=== PATIENT | male | born 1975 | race Caucasian/White ===

== ENCOUNTER 2016-05-26 22:38 | Inpatient (IN) | payer MEDICARE, OTHER ==
[2016-05-26] MEDS ORDERED: NITROGLYCERIN SL TABS 0.4 MG TAB SUBLINGUAL STA ×3 (23:11)
[2016-05-26] MEDS ORDERED: ASPIRIN 81 MG CHEW PO STA (23:11)
--- NOTE | 2016-05-26 23:13 | ED ---
General Adult HPI - General Chief complaint: Chest Pain Stated complaint: Chest Pain Time Seen by Provider: 05/26/16 22:53 Source: patient, RN notes reviewed Mode of arrival: ambulatory Limitations: no limitations - History of Present Illness Initial comments: Patient is a pleasant 40-year-old male presenting to the emergency department complaining of chest discomfort. Onset was around an hour prior to arrival. Prior to that patient did have some indigestion earlier in the day. Discomfort at this time is described as heaviness. Discomfort is currently 7/10. Patient does have some mild shortness of breath. No nausea. Patient was sweaty earlier. Patient has had similar symptoms previously associated with cardiac disease. - Related Data Home Medications Medication Instructions Recorded Confirmed Nitroglycerin Sl Tabs [Nitrostat] 0.4 mg SL Q5M PRN 10/13/13 05/26/16 Sertraline HCl [Zoloft] 200 mg PO QAM 10/13/13 05/26/16 Linagliptin [Tradjenta] 5 mg PO HS 10/13/14 05/26/16 Spironolactone [Aldactone] 25 mg PO DAILY 05/16/15 05/26/16 Furosemide [Lasix] 40 mg PO DAILY 05/21/15 05/26/16 metFORMIN HCL 1,000 mg PO AC-BID 07/03/15 05/26/16 Omeprazole [PriLOSEC] 40 mg PO AC-SUPPER 08/13/15 05/26/16 Ranolazine [Ranexa] 1,000 mg PO Q12H 10/03/15 05/26/16 Insuln Asp Prt/Insulin Aspart 25 unit SQ BID 11/08/15 05/26/16 [NovoLOG MIX 70-30 VIAL] Metoclopramide [Reglan] 10 mg PO ACHS 12/25/15 05/26/16 Baclofen [Lioresal] 10 mg PO TID PRN 01/13/16 05/26/16 ARIPiprazole 10 mg PO HS 03/10/16 05/26/16 Dulaglutide [Trulicity] 1.5 mg SQ FR 03/10/16 05/26/16 Gabapentin 300 mg PO TID 03/10/16 05/26/16 Glimepiride 4 mg PO AC-BID 03/10/16 05/26/16 Isosorbide Mononitrate ER [Imdur] 60 mg PO DAILY 03/10/16 05/26/16 Ranitidine HCl 300 mg PO DAILY 05/05/16 05/26/16 Rosuvastatin Calcium 40 mg PO DAILY 05/05/16 05/26/16 Previous Rx's Medication Instructions Recorded Prasugrel [Effient] 10 mg PO DAILY #14 tab 06/01/14 Aspirin EC [Ecotrin] 325 mg PO DAILY tablet. 12/08/14 Lisinopril [Zestril] 5 mg PO DAILY #1 tablet 03/10/16 Allergies Allergy/AdvReac Type Severity Reaction Status Date / Time Penicillins Allergy Severe Rash/Hives Verified 05/26/16 23:00 meclizine Allergy Unknown Unknown Verified 05/26/16 23:00 erythromycin base AdvReac Severe Swelling Verified 05/26/16 23:00 [Erythromycin Base] shellfish derived AdvReac Severe Swelling Verified 05/26/16 23:00 cephalexin monohydrate AdvReac Mild Nausea & Verified 05/26/16 23:00 [From Keflex] Vomiting codeine AdvReac Unknown Swelling Verified 05/26/16 23:00 naproxen AdvReac Unknown Unknown Verified 05/26/16 23:00 atorvastatin calcium AdvReac MUSCLE PAIN Verified 05/26/16 23:00 [From Lipitor] Iodinated Contrast Media - AdvReac Unknown Verified 05/26/16 23:00 Oral and bird feces AdvReac Swelling Uncoded 05/26/16 22:44 sea food AdvReac Swelling Uncoded 05/26/16 22:44 Review of Systems ROS Statement: Those systems with pertinent positive or pertinent negative responses have been documented in the HPI. ROS Other: All systems not noted in ROS Statement are negative. Constitutional: Denies: fever Eyes: Denies: eye pain ENT: Denies: ear pain Respiratory: Reports: dyspnea. Denies: cough Cardiovascular: Reports: chest pain Endocrine: Denies: fatigue Gastrointestinal: Denies: abdominal pain, nausea Genitourinary: Denies: dysuria Musculoskeletal: Denies: back pain Skin: Denies: rash Neurological: Denies: weakness Past Medical History Past Medical History: Coronary Artery Disease (CAD), Chest Pain / Angina, Heart Failure, CVA/TIA, Diabetes Mellitus, GERD/Reflux, Hyperlipidemia, Hypertension, Myocardial Infarction ([place]), Osteoarthritis (OA), Pneumonia, Sleep Apnea/CPAP/ BIPAP Additional Past Medical History / Comment(s): Coronary artery disease with multiple vessel disease, ischemic cardiomyopathy, diabetic neuropathy, hypertension hypertensive cardiovascular disease, chronic gastritis, chronic back pain, depression with multiple suicide attempts with insulin in the past.GASTROPARESIS, PSORIASES. Last Myocardial Infarction Date:: 12/2014 History of Any Multi-Drug Resistant Organisms: None Reported Past Surgical History: AICD, Appendectomy, Cholecystectomy, Heart Catheterization With Stent, Hernia Repair Additional Past Surgical History / Comment(s): Right orchiectomy, right sided hand surgery in 2001 secondary to an injury.Left heart catheterization and angioplasty with a stent placement of the LAD in 2009 and September 2010. Left heart catheterization February 2013, and August - RCA occlusion treated so farwith aggressive medical management, TEEAdditional Medical Hx: Gastroparesis, 10-23-14 HAD HEART CATH WITH PTBA TO DISTAL CIRC.11/05/14 NSTEMI. Past Anesthesia/Blood Transfusion Reactions: No Reported Reaction Additional Past Anesthesia/Blood Transfusion Reaction / Comment(s): . Date of Last Stent Placement:: 05/2015 Type of Cardiac Device: AICD Device Placement Date:: 09/19/15 Past Psychological History: Anxiety, Depression, PTSD Additional Psychological History / Comment(s): Several suicide attempts with use of insulin.PT STATED HAS PTSD- IN 2000- HIS 3 MONTH OLD SON IN HIS ARMS (CHILD WAS BORN 2 MONTHS PREMATURE), PT ON DISABILTY MULTIFACTORIAL PER PT. Smoking Status: Never smoker Past Alcohol Use History: None Reported Additional Past Alcohol Use History / Comment(s): . He does not drink alcohol or use street drugs. He is currently living with his .PT DENIES HAVING EVER BEEN A SMOKER Past Drug Use History: None Reported Additional Drug Use History / Comment(s): NONE IN 15 YEARS has smoked marijuana - Past Family History Mother Family Medical History: Coronary Artery Disease (CAD), Myocardial Infarction ([place] ) Additional Family Medical History / Comment(s): 7 [place] and faulty heart valve Father History Unknown: Yes Additional Family Medical History / Comment(s): Does not know who father is Brother(s) Family Medical History: Congestive Heart Failure (CHF), Myocardial Infarction ( [place]) Additional Family Medical History / Comment(s): Parkinsons Patient has Family Medical History: No Reported History Additional Family Medical History / Comment(s): There is a strong family history for heart disease, hypertension, and diabetes. General Exam Limitations: no limitations General appearance: alert, in no apparent distress Head exam: Present: atraumatic Eye exam: Present: normal appearance ENT exam: Present: normal oropharynx Neck exam: Present: normal inspection Respiratory exam: Present: normal lung sounds bilaterally. Absent: chest wall tenderness Cardiovascular Exam: Present: regular rate, normal rhythm Expanded Peripheral pulses: 2+: Radial (R), Radial (L), Posterior Tibialis (R), Posterior Tibialis (L) GI/Abdominal exam: Present: soft. Absent: tenderness Extremities exam: Present: normal inspection. Absent: pedal edema, calf tenderness Neurological exam: Present: alert Psychiatric exam: Present: normal affect, normal mood Skin exam: Absent: rash Course Vital Signs 05/26/16 05/27/16 05/27/16 22:43 00:11 00:15 Temperature 97.2 F L Pulse Rate 105 H 98 102 H Respiratory 18 18 18 Rate Blood Pressure 142/90 141/94 154/82 O2 Sat by Pulse 100 98 96 Oximetry 05/27/16 00:20 Temperature Pulse Rate 104 H Respiratory 18 Rate Blood Pressure 124/79 O2 Sat by Pulse 96 Oximetry EKG Findings - EKG Comments: EKG Findings:: Atrial sensed ventricular paced rhythm at 107. CO 170. QRS 84. QT 3:30. QTC 440. Right axis. Poor R-wave progression. No acute ST change. Medical Decision Making - Medical Decision Making Patient reexamined and resting comfortably in bed. Patient updated on results and plan. Case discussed with practitioner Lindsey, who will admit for Dr. Gallagher, covering for hospital call. Heparin will be started. Cardiology consultation. Admission orders written. - Lab Data Result diagrams: 05/26/16 23:19 05/26/16 23:19 Lab Results 05/26/16 05/26/16 05/26/16 Range/Units 23:19 23:19 23:19 WBC 5.1 (3.8-10.6) k/uL RBC 4.35 (4.30-5.90) m/uL Hgb 11.9 L (13.0-17.5) gm/dL Hct 35.6 L (39.0-53.0) % MCV 81.9 (80.0-100.0) fL MCH 27.4 (25.0-35.0) pg MCHC 33.4 (31.0-37.0) g/dL RDW 14.1 (11.5-15.5) % Plt Count 268 (150-450) k/uL Neutrophils % 53 % Lymphocytes % 35 % Monocytes % 8 % Eosinophils % 2 % Basophils % 1 % Neutrophils # 2.7 (1.3-7.7) k/uL Lymphocytes # 1.8 (1.0-4.8) k/uL Monocytes # 0.4 (0-1.0) k/uL Eosinophils # 0.1 (0-0.7) k/uL Basophils # 0.0 (0-0.2) k/uL PT (9.0-12.0) sec INR (<1.1) APTT (22.0-30.0) sec Sodium 135 L (137-145) mmol/L Potassium 4.5 (3.5-5.1) mmol/L Chloride 100 (98-107) mmol/L Carbon Dioxide 23 (22-30) mmol/L Anion Gap 12 mmol/L BUN 17 (9-20) mg/dL Creatinine 0.90 (0.66-1.25) mg/dL Est GFR (MDRD) Af Amer >60 (>60 ml/min/1.73 sqM) Est GFR (MDRD) Non-Af >60 (>60 ml/min/1.73 sqM) Glucose 304 H (74-99) mg/dL POC Glucose (mg/dL) (75-99) mg/dL POC Glu Manager Strategy & Account ID Calcium 9.4 (8.4-10.2) mg/dL Magnesium 1.5 L (1.6-2.3) mg/dL Total Bilirubin 0.5 (0.2-1.3) mg/dL AST 20 (17-59) U/L ALT 30 (21-72) U/L Alkaline Phosphatase 105 (38-126) U/L Total Creatine Kinase 113 (55-170) U/L CK-MB (CK-2) 2.5 H* (0.0-2.4) ng/mL CK-MB (CK-2) Rel Index 2.2 Troponin I 0.111 H* (0.000-0.034) ng/mL Total Protein 5.6 L (6.3-8.2) g/dL Albumin 3.4 L (3.5-5.0) g/dL 05/26/16 05/27/16 Range/Units 23:19 00:17 WBC (3.8-10.6) k/uL RBC (4.30-5.90) m/uL Hgb (13.0-17.5) gm/dL Hct (39.0-53.0) % MCV (80.0-100.0) fL MCH (25.0-35.0) pg MCHC (31.0-37.0) g/dL RDW (11.5-15.5) % Plt Count (150-450) k/uL Neutrophils % % Lymphocytes % % Monocytes % % Eosinophils % % Basophils % % Neutrophils # (1.3-7.7) k/uL Lymphocytes # (1.0-4.8) k/uL Monocytes # (0-1.0) k/uL Eosinophils # (0-0.7) k/uL Basophils # (0-0.2) k/uL PT 10.5 (9.0-12.0) sec INR 1.0 (<1.1) APTT 20.4 L (22.0-30.0) sec Sodium (137-145) mmol/L Potassium (3.5-5.1) mmol/L Chloride (98-107) mmol/L Carbon Dioxide (22-30) mmol/L Anion Gap mmol/L BUN (9-20) mg/dL Creatinine (0.66-1.25) mg/dL Est GFR (MDRD) Af Amer (>60 ml/min/1.73 sqM) Est GFR (MDRD) Non-Af (>60 ml/min/1.73 sqM) Glucose (74-99) mg/dL POC Glucose (mg/dL) 297 H (75-99) mg/dL POC Glu Manager Strategy & Account ID Kaushik, Faye Calcium (8.4-10.2) mg/dL Magnesium (1.6-2.3) mg/dL Total Bilirubin (0.2-1.3) mg/dL AST (17-59) U/L ALT (21-72) U/L Alkaline Phosphatase (38-126) U/L Total Creatine Kinase (55-170) U/L CK-MB (CK-2) (0.0-2.4) ng/mL CK-MB (CK-2) Rel Index Troponin I (0.000-0.034) ng/mL Total Protein (6.3-8.2) g/dL Albumin (3.5-5.0) g/dL - Radiology Data Radiology results: image reviewed (Checks x-ray shows no acute process.) Critical Care Time Critical Care Time: Yes Total Critical Care Time: 31 Disposition Clinical Impression: NSTEMI (non-ST elevated myocardial infarction) Disposition: ADMITTED IP TO THIS HOSP
[2016-05-26 23:31] LABS: Basophils % (A) 1 %; CH 26.8; CHCM 32.8; Eosinophils # (A) 0.1 k/uL (0-0.7); Eosinophils % (A) 2 %; HCT 35.6 % (39.0-53.0); HDW 3.16; HGB 11.9 gm/dL (13.0-17.5); Luc % (Auto) 2; Lymphocytes # (A) 1.8 k/uL (1.0-4.8); Lymphocytes % (A) 35 %; MCH 27.4 pg (25.0-35.0); MCHC 33.4 g/dL (31.0-37.0); MCV 81.9 fL (80.0-100.0); Mean Platelet Volume 6.9; Monocytes # (A) 0.4 k/uL (0-1.0); Monocytes % (A) 8 %; Neutrophils # (A) 2.7 k/uL (1.3-7.7); Neutrophils % (A) 53 %; RBC 4.35 m/uL (4.30-5.90); RDW 14.1 % (11.5-15.5); WBC 5.1 k/uL (3.8-10.6); WBC (Perox) 5.89
--- NOTE | 2016-05-26 23:34 | XR ---
EXAMINATION TYPE: XR chest 2V DATE OF EXAM: 05/26/2016 11:27 PM COMPARISON: May 05, 2016 HISTORY: Chest pain history of multiple MIs, bypass and stents. TECHNIQUE: Frontal and lateral views of the chest are obtained. FINDINGS: There is no focal air space opacity, pleural effusion, or pneumothorax seen. The cardiac silhouette size is within normal limits. Left-sided pacemaker is noted. The osseous structures are i ntact. IMPRESSION: No acute cardiopulmonary process. No significant interval change.
[2016-05-26 23:41] LABS: ALT 30 U/L (21-72); AST 20 U/L (17-59); Alkaline Phosphatase 105 U/L (38-126); Anion Gap 12 mmol/L; Blood Urea Nitrogen 17 mg/dL (9-20); Calcium 9.4 mg/dL (8.4-10.2); Carbon Dioxide 23 mmol/L (22-30); Chloride 100 mmol/L (98-107); Glucose 304 mg/dL (74-99); Magnesium 1.5 mg/dL (1.6-2.3); Non-African American GFR(MDRD) >60 (>60 ml/min/1.73 sqM); Potassium 4.5 mmol/L (3.5-5.1); Sodium 135 mmol/L (137-145); Total Bilirubin 0.5 mg/dL (0.2-1.3); Total Protein 5.6 g/dL (6.3-8.2)
[2016-05-27 00:02] LABS: Prothrombin Time 10.5 sec (9.0-12.0)
[2016-05-27] MEDS ORDERED: MAGNESIUM OXIDE 400 MG TAB PO STA (00:10)
[2016-05-27] MEDS ORDERED: INSULIN REGULAR 100 UNIT/ML VIAL SQ ONE (00:10)
[2016-05-27 00:16] LABS: Partial Thromboplastin Time 20.4 sec (22.0-30.0)
[2016-05-27 00:21] LABS: Glucose,Whole Blood 297 mg/dL (75-99)
[2016-05-27 00:32] LABS: Creatine Kinase MB 2.5 ng/mL (0.0-2.4); Troponin I 0.111 ng/mL (0.000-0.034)
[2016-05-27] MEDS ORDERED: BACLOFEN 10 MG TAB PO PRN (00:46)
[2016-05-27] MEDS ORDERED: HEPARIN SODIUM,PORCINE 5,000 UNIT/ML 1 ML VIAL IV ONE (00:47)
[2016-05-27] MEDS ORDERED: NITROGLYCERIN SL TABS 0.4 MG TAB SUBLINGUAL PRN (00:47)
[2016-05-27] MEDS: HEPARIN SODIUM,PORCINE/D5W PMX 25,000 UNIT in DEXTROSE/WATER 1 500ML.BAG IV SCH (01:11)
[2016-05-27 01:37] LABS: Glucose,Whole Blood 256 mg/dL (75-99)
[2016-05-27 01:59] VITALS: BMI 38.7
[2016-05-27] MEDS: RANOLAZINE 500 MG TAB.ER.12H PO SCH ×2 (02:08→13:35)
[2016-05-27] MEDS ORDERED: NITROGLYCERIN OINT 1 INCH/GM PACKET TOPICAL SCH (06:00)
[2016-05-27 07:26] LABS: Glucose,Whole Blood 286 mg/dL (75-99)
[2016-05-27 07:36] LABS: Mean Platelet Volume 6.7
[2016-05-27 07:57] LABS: Creatine Kinase MB 2.7 ng/mL (0.0-2.4); Troponin I 0.154 ng/mL (0.000-0.034)
[2016-05-27] MEDS: GLIMEPIRIDE 4 MG TAB PO SCH ×2 (08:38→18:31)
[2016-05-27] MEDS: metFORMIN 500 MG TAB PO SCH ×2 (08:38→18:31)
[2016-05-27] MEDS: FUROSEMIDE 40 MG TAB PO SCH (08:39)
[2016-05-27] MEDS: FAMOTIDINE 20 MG TAB PO SCH (08:39)
[2016-05-27] MEDS: GABAPENTIN 100 MG CAP PO SCH ×3 (08:40→21:50)
[2016-05-27] MEDS: PRASUGREL 10 MG TAB PO SCH (08:40)
[2016-05-27] MEDS: LISINOPRIL 5 MG TAB PO SCH (08:40)
[2016-05-27] MEDS: SERTRALINE 100 MG TAB PO SCH (08:41)
[2016-05-27] MEDS: SPIRONOLACTONE 25 MG TAB PO SCH (08:41)
[2016-05-27] MEDS: HEPARIN SODIUM,PORCINE 5,000 UNIT/ML 1 ML VIAL IV PRN ×2 (08:45→18:30)
[2016-05-27] MEDS: INSULN ASP PRT/INSULIN ASPART 100 UNIT/ML 10 ML VIAL SQ SCH ×2 (08:46→21:49)
[2016-05-27] MEDS ORDERED: ROSUVASTATIN CALCIUM 40 MG PO SCH (09:00)
[2016-05-27] MEDS ORDERED: ISOSORBIDE MONONITRATE ER 60 MG TAB.ER.24H PO SCH (09:00)
[2016-05-27 11:43] LABS: Glucose,Whole Blood 214 mg/dL (75-99)
--- NOTE | 2016-05-27 11:55 | P.CRDCN ---
History of Present Illness Consult date: 05/27/16 History of present illness: This is a 40-year-old gentleman with history of coronary artery disease which is diffuse and with history of multiple stent placement, currently being followed by a meter technician at [facility]. His last admission here was in December 2015 for chest pain. Apparently about a month ago, patient had a cardiac catheterization at [facility] and patient was advised to maximal medical therapy. Around 9:00 yesterday morning patient started having chest pain which was excruciating and patient came to the emergency room for further evaluation. His EKG showed sinus rhythm with evidence of biventricular permanent pacemaker rhythm. His cardiac enzymes showed mildly elevated troponins 2. He seemed to be sleeping comfortably at the time of my examination the he does complain of mild discomfort in the chest. Unfortunately , there is not much we can do as far as revascularization is consent. I'm going to increase the dose of the Imdur to 90 mg and continue current medical therapy. If patient remains stable he could be discharged home within next 48 hours and have follow-up with his own meter technician. Review of Systems As per the old chart Past Medical History Past Medical History: Coronary Artery Disease (CAD), Chest Pain / Angina, Heart Failure, CVA/TIA, Diabetes Mellitus, GERD/Reflux, Hyperlipidemia, Hypertension, Myocardial Infarction ([place]), Osteoarthritis (OA), Pneumonia, Sleep Apnea/CPAP/ BIPAP Additional Past Medical History / Comment(s): Coronary artery disease with multiple vessel disease, ischemic cardiomyopathy, diabetic neuropathy, hypertension hypertensive cardiovascular disease, chronic gastritis, chronic back pain, depression with multiple suicide attempts with insulin in the past.GASTROPARESIS, PSORIASES. Last Myocardial Infarction Date:: 12/2014 History of Any Multi-Drug Resistant Organisms: None Reported Past Surgical History: AICD, Appendectomy, Cholecystectomy, Heart Catheterization With Stent, Hernia Repair Additional Past Surgical History / Comment(s): Right orchiectomy, right sided hand surgery in 2001 secondary to an injury.Left heart catheterization and angioplasty with a stent placement of the LAD in 2009 and September 2010. Left heart catheterization February 2013, and August - RCA occlusion treated so farwith aggressive medical management, TEEAdditional Medical Hx: Gastroparesis, 10-23-14 HAD HEART CATH WITH PTBA TO DISTAL CIRC.11/05/14 NSTEMI. Past Anesthesia/Blood Transfusion Reactions: No Reported Reaction Additional Past Anesthesia/Blood Transfusion Reaction / Comment(s): . Date of Last Stent Placement:: 05/2015 Type of Cardiac Device: AICD Device Placement Date:: 09/19/15 Past Psychological History: Anxiety, Depression, PTSD Additional Psychological History / Comment(s): Several suicide attempts with use of insulin.PT STATED HAS PTSD- IN 2000- HIS 3 MONTH OLD SON IN HIS ARMS (CHILD WAS BORN 2 MONTHS PREMATURE), PT ON DISABILTY MULTIFACTORIAL PER PT. Smoking Status: Never smoker Past Alcohol Use History: Rare Additional Past Alcohol Use History / Comment(s): . He does not drink alcohol or use street drugs. He is currently living with his .PT DENIES HAVING EVER BEEN A SMOKER Past Drug Use History: None Reported Additional Drug Use History / Comment(s): NONE IN 15 YEARS has smoked marijuana - Past Family History Mother Family Medical History: Coronary Artery Disease (CAD), Myocardial Infarction ([place] ) Additional Family Medical History / Comment(s): 7 [place] and faulty heart valve Father History Unknown: Yes Additional Family Medical History / Comment(s): Does not know who father is Brother(s) Family Medical History: Congestive Heart Failure (CHF), Myocardial Infarction ( [place]) Additional Family Medical History / Comment(s): Parkinsons Patient has Family Medical History: No Reported History Additional Family Medical History / Comment(s): There is a strong family history for heart disease, hypertension, and diabetes. Medications and Allergies Home Medications Medication Instructions Recorded Confirmed Type Nitroglycerin Sl Tabs [Nitrostat] 0.4 mg SL Q5M PRN 10/13/13 05/26/16 History Sertraline HCl [Zoloft] 200 mg PO QAM 10/13/13 05/26/16 History Linagliptin [Tradjenta] 5 mg PO HS 10/13/14 05/26/16 History Spironolactone [Aldactone] 25 mg PO DAILY 05/16/15 05/26/16 History Furosemide [Lasix] 40 mg PO DAILY 05/21/15 05/26/16 History metFORMIN HCL 1,000 mg PO AC-BID 07/03/15 05/26/16 History Omeprazole [PriLOSEC] 40 mg PO AC-SUPPER 08/13/15 05/26/16 History Ranolazine [Ranexa] 1,000 mg PO Q12H 10/03/15 05/26/16 History Insuln Asp Prt/Insulin Aspart 25 unit SQ BID 11/08/15 05/26/16 History [NovoLOG MIX 70-30 VIAL] Metoclopramide [Reglan] 10 mg PO ACHS 12/25/15 05/26/16 History Baclofen [Lioresal] 10 mg PO TID PRN 01/13/16 05/26/16 History ARIPiprazole 10 mg PO HS 03/10/16 05/26/16 History Dulaglutide [Trulicity] 1.5 mg SQ FR 03/10/16 05/26/16 History Gabapentin 300 mg PO TID 03/10/16 05/26/16 History Glimepiride 4 mg PO AC-BID 03/10/16 05/26/16 History Isosorbide Mononitrate ER [Imdur] 60 mg PO DAILY 03/10/16 05/26/16 History Ranitidine HCl 300 mg PO DAILY 05/05/16 05/26/16 History Rosuvastatin Calcium 40 mg PO DAILY 05/05/16 05/26/16 History Allergies Allergy/AdvReac Type Severity Reaction Status Date / Time Penicillins Allergy Severe Rash/Hives Verified 05/26/16 23:00 meclizine Allergy Unknown Unknown Verified 05/26/16 23:00 erythromycin base AdvReac Severe Swelling Verified 05/26/16 23:00 [Erythromycin Base] shellfish derived AdvReac Severe Swelling Verified 05/26/16 23:00 cephalexin monohydrate AdvReac Mild Nausea & Verified 05/26/16 23:00 [From Keflex] Vomiting codeine AdvReac Unknown Swelling Verified 05/26/16 23:00 naproxen AdvReac Unknown Unknown Verified 05/26/16 23:00 atorvastatin calcium AdvReac MUSCLE PAIN Verified 05/26/16 23:00 [From Lipitor] Iodinated Contrast Media - AdvReac Unknown Verified 05/26/16 23:00 Oral and bird feces AdvReac Swelling Uncoded 05/26/16 22:44 sea food AdvReac Swelling Uncoded 05/26/16 22:44 Physical Exam Vitals: Vital Signs Temp Pulse Pulse Resp BP BP Pulse Ox 05/27/16 08:00 97.7 F 99 20 140/87 95 05/27/16 04:00 97.6 F 97 16 121/77 95 05/27/16 00:57 100 18 133/82 97 05/27/16 00:55 97.8 F Intake and Output 05/26/16 05/27/16 05/27/16 22:59 06:59 14:59 Intake Total 100 148.333 Balance 100 148.333 Intake: IV 100 0.9 100 Intake, IV Titration 148.333 Amount Heparin Sodium,Porcine/ 148.333 D5w Pmx 25,000 unit In Dextrose/Water 1 500ml. bag @ 9 UNITS/KG/HR 20.08 mls/hr IV .Q24H JAKE Rx#: [id number] Other: # Voids 0 Weight 118.9 kg GENERAL EXAM: Patient is alert and oriented and doesn't appear to be in any acute distress HEENT: Normocephalic. Normal reaction of pupils, equal size, normal range of extraocular motion. No erythema or exudates in the throat. NECK: No masses, no nuchal rigidity. CHEST: No chest wall deformity. LUNGS: Equal air entry with no crackles or wheeze. HEART: S1 and S2 normal with no audible mumurs or gallops. Regular rhythm, femorals equal on both sides.. ABDOMEN: No hepatosplenomegaly, normal bowel sounds, no guarding or rigidity. SKIN: No rashes CENTRAL NERVOUS SYSTEM: No focal deficits. EXTREMITIES: No cyanosis, clubbing or edema. Results 05/27/16 06:28 05/26/16 23:19 Cardiac Enzymes 05/27/16 Range/Units 06:28 CK-MB (CK-2) 2.7 H* (0.0-2.4) ng/mL Troponin I 0.154 H* (0.000-0.034) ng/mL Coagulation 05/27/16 Range/Units 06:28 APTT 23.7 (22.0-30.0) sec CBC 05/27/16 Range/Units 06:28 Plt Count 236 (150-450) k/uL Current Medications Generic Name Dose Route Start Last Admin Trade Name Freq PRN Reason Stop Dose Admin Aripiprazole 10 mg 05/27/16 21:00 Abilify PO HS JAKE Aspirin 325 mg 05/28/16 09:00 Aspirin PO DAILY JAKE Baclofen 10 mg 05/27/16 00:46 Lioresal PO TID PRN Pain Famotidine 20 mg 05/27/16 09:00 05/27/16 08:39 Pepcid PO 20 mg DAILY [facility] Administration Furosemide 40 mg 05/27/16 09:00 05/27/16 08:39 Lasix PO 40 mg DAILY JAKE Administration Gabapentin 300 mg 05/27/16 09:00 05/27/16 08:40 Neurontin PO 300 mg TID JAKE Administration Glimepiride 4 mg 05/27/16 07:30 05/27/16 08:38 Amaryl PO 4 mg AC-BID JAKE Administration Heparin Sodium (Porcine) 0 unit 05/27/16 00:47 05/27/16 08:45 Heparin IV 4,000 unit Q6HR PRN Administration Low PTT Protocol Heparin Sodium/Dextrose 25,000 500 mls @ 20.08 mls/hr 05/27/16 01:00 08:36 unit/ IV Solution IV 12 units/kg/hr .Q24H JAKE 26.78 mls/hr Protocol Titration 9 UNITS/KG/HR Insulin Aspart 25 unit 05/27/16 09:00 05/27/16 08:46 Novolog Mix 70-30 Vial SQ 25 unit BID [facility] Administration Insulin Human Lispro 0 unit 05/27/16 12:30 Humalog SQ ACHS [facility] Protocol Isosorbide Mononitrate 90 mg 05/27/16 12:00 Imdur PO DAILY [facility] Linagliptin 5 mg 05/27/16 21:00 Tradjenta PO HS [facility] Lisinopril 5 mg 05/27/16 09:00 05/27/16 08:40 Zestril PO 5 mg DAILY [facility] Administration Metformin HCl 1,000 mg 05/27/16 07:30 05/27/16 08:38 Glucophage PO 1,000 mg AC-BID [facility] Administration Nitroglycerin 0.4 mg 05/27/16 00:47 05/27/16 02:03 Nitrostat SUBLINGUAL 0.4 mg Q5M PRN Administration Chest Pain Non-Formulary Medication 1.5 mg 05/30/16 00:46 Dulaglutide [Trulicity] SQ FR JAKE Non-Formulary Medication 40 mg 05/27/16 09:00 Rosuvastatin Calcium [Rosuvastatin Calcium] PO DAILY [facility] Pantoprazole Sodium 40 mg 01/03/17 17:30 Protonix PO AC-SUPPER JAKE Prasugrel 10 mg 05/27/16 09:00 05/27/16 08:40 Effient PO 10 mg DAILY JAKE Administration Ranolazine 1,000 mg 05/27/16 01:00 05/27/16 02:08 Ranexa PO 1,000 mg Q12H JAKE Administration Sertraline HCl 200 mg 05/27/16 09:00 05/27/16 08:41 Zoloft PO 200 mg QAM JAKE Administration Spironolactone 25 mg 05/27/16 09:00 05/27/16 08:41 Aldactone PO 25 mg DAILY JAKE Administration Intake and Output 05/26/16 05/27/16 05/27/16 22:59 06:59 14:59 Intake Total 100 148.333 Balance 100 148.333 Intake: IV 100 0.9 100 Intake, IV Titration 148.333 Amount Heparin Sodium,Porcine/ 148.333 D5w Pmx 25,000 unit In Dextrose/Water 1 500ml. bag @ 9 UNITS/KG/HR 20.08 mls/hr IV .Q24H JAKE Rx#: [id number] Other: # Voids 0 Weight 118.9 kg 05/27/16 06:28 EKG Interpretations (text) Sinus rhythm with evidence of biventricular pacemaker rhythm Assessment and Plan (1) Acute coronary syndrome Status: Acute (2) Chest pain Status: Acute (3) Congestive heart failure Status: Acute (4) Diabetes Status: Acute (5) HTN (hypertension) Status: Acute (6) TIA (transient ischemic attack) Status: Acute Plan: This patient unfortunately has recurrent admissions with chest pains. His troponin values are always borderline high. He seemed to be comfortable at the time of my examination. He had a recent cardiac catheter patient about a month ago. I'm going to increase his nitrates and continue with medical therapy. If he becomes stable he could be discharged home, to have follow-up with his own meter technician
[2016-05-27 11:58] LABS: Creatine Kinase MB 2.2 ng/mL (0.0-2.4)
[2016-05-27 12:05] LABS: Troponin I 0.14 ng/mL (0.000-0.034)
[2016-05-27 12:49] LABS: Hemoglobin A1C 9.3 % (4.2-6.1)
[2016-05-27] MEDS: ISOSORBIDE MONONITRATE ER 30 MG TAB.ER.24H PO SCH (13:33)
[2016-05-27] MEDS: INSULIN LISPRO (humaLOG) 300 UNIT/3 ML VIAL SQ SCH ×3 (13:35→21:49)
[2016-05-27 17:07] LABS: Glucose,Whole Blood 95 mg/dL (75-99)
[2016-05-27] MEDS: PANTOPRAZOLE 40 MG TABLET PO SCH (18:31)
[2016-05-27] MEDS ORDERED: LINAGLIPTIN 5 MG TABLET PO SCH (21:00)
[2016-05-27] MEDS ORDERED: ARIPiprazole 10 MG TAB PO SCH (21:00)
[2016-05-27 21:37] LABS: Glucose,Whole Blood 182 mg/dL (75-99)
[2016-05-28] MEDS: HEPARIN SODIUM,PORCINE/D5W PMX 25,000 UNIT in DEXTROSE/WATER 1 500ML.BAG IV SCH ×2 (00:23→10:31)
[2016-05-28] MEDS: HEPARIN SODIUM,PORCINE 5,000 UNIT/ML 1 ML VIAL IV PRN (00:28)
[2016-05-28] MEDS: RANOLAZINE 500 MG TAB.ER.12H PO SCH ×2 (00:28→12:10)
[2016-05-28 06:09] LABS: CH 26.8; CHCM 32.7; HCT 34.9 % (39.0-53.0); HDW 3.02; HGB 11.4 gm/dL (13.0-17.5); MCHC 32.7 g/dL (31.0-37.0); MCV 82.4 fL (80.0-100.0); Mean Platelet Volume 7.5; RBC 4.24 m/uL (4.30-5.90); RDW 14.4 % (11.5-15.5); WBC 6.8 k/uL (3.8-10.6)
[2016-05-28 07:09] LABS: Anion Gap 13 mmol/L; Blood Urea Nitrogen 19 mg/dL (9-20); Carbon Dioxide 25 mmol/L (22-30); Chloride 103 mmol/L (98-107); Cholesterol 140 mg/dL (<200); Glucose 89 mg/dL (74-99); HDL Cholesterol 51 mg/dL (40-60); Magnesium 1.5 mg/dL (1.6-2.3); Non-African American GFR(MDRD) >60 (>60 ml/min/1.73 sqM); Potassium 4.2 mmol/L (3.5-5.1); Sodium 141 mmol/L (137-145); Triglycerides 161 mg/dL (<150)
[2016-05-28 07:59] LABS: Glucose,Whole Blood 107 mg/dL (75-99)
[2016-05-28] MEDS ORDERED: ASPIRIN 325 MG TAB PO SCH (09:00)
[2016-05-28] MEDS: SERTRALINE 100 MG TAB PO SCH (09:14)
[2016-05-28] MEDS: PRASUGREL 10 MG TAB PO SCH (09:14)
[2016-05-28] MEDS: LISINOPRIL 5 MG TAB PO SCH (09:14)
[2016-05-28] MEDS: GLIMEPIRIDE 4 MG TAB PO SCH ×2 (09:15→16:58)
[2016-05-28] MEDS: metFORMIN 500 MG TAB PO SCH ×2 (09:16→16:58)
[2016-05-28] MEDS: INSULIN LISPRO (humaLOG) 300 UNIT/3 ML VIAL SQ SCH ×3 (09:16→16:58)
[2016-05-28] MEDS: INSULN ASP PRT/INSULIN ASPART 100 UNIT/ML 10 ML VIAL SQ SCH (09:17)
[2016-05-28] MEDS: FAMOTIDINE 20 MG TAB PO SCH (09:17)
[2016-05-28] MEDS: GABAPENTIN 100 MG CAP PO SCH ×2 (09:17→16:57)
[2016-05-28] MEDS: FUROSEMIDE 40 MG TAB PO SCH (09:17)
[2016-05-28] MEDS: ISOSORBIDE MONONITRATE ER 30 MG TAB.ER.24H PO SCH (09:18)
[2016-05-28] MEDS: SPIRONOLACTONE 25 MG TAB PO SCH (09:50)
[2016-05-28] MEDS: MAGNESIUM SULFATE-D5W PMX 1 GM in DEXTROSE/WATER 1 100ML.BAG IVPB SCH ×2 (10:31→12:09)
--- NOTE | 2016-05-28 11:06 | HP ---
DATE OF ADMISSION: CHIEF COMPLAINT: Chest pain. HISTORY OF PRESENT ILLNESS: Mr. Dunham is a 40-year-old male with known history of diffuse coronary artery disease with multiple stent placement, previous history of chest pain/angina, diabetes, type II, obstructive sleep apnea, hypertension, hyperlipidemia and ischemic cardiomyopathy status post AICD placement, chronic back pain and also multiple suicide attempts, came to the hospital with complaints of chest pain that started yesterday morning, midsternal, associated some dizziness and lightheadedness. No radiation. Associated with nausea, no vomiting. Patient had elevated troponin level and was admitted to the hospital in MICU for cardiology evaluation. Apparently patient was previously admitted ( ) with similar complaints and also had a cardiac catheterization about a month back at [facility]. Patient advised maximum medical therapy at that time. Otherwise patient is chest pain free now. Cardiology recommended no further work-up. No fever. No chills. No recent illnesses. No sick contacts at home. No recent travel. REVIEW OF SYSTEMS: CONSTITUTIONAL: No fever. No chills and no weakness or malaise. RESPIRATORY: No cough or sputum production. CARDIOVASCULAR: No chest pain or shortness of breath. ABDOMEN: No nausea, vomiting, or abdominal pain. GENITOURINARY: Negative. ENDOCRINE: Negative. PSYCHIATRY: Anxious. SKIN: Negative. MUSCULOSKELETAL: Negative. All other fourteen-point review of systems negative except as above. Current past medical history includes: Coronary artery disease, chest pain/angina, CHF, CVA/TIA, diabetes mellitus, GERD, hyperlipidemia, hypertension, history of SD, osteoarthritis, pneumonia, sleep apnea, diabetic neuropathy, ischemic cardiomyopathy, multiple suicide attempts. PAST SURGICAL HISTORY: AICD placement, appendectomy, cholecystectomy, cardiac catheterization with stent placement, hernia repair, right orchiectomy, right side hand surgery in 2001 secondary to injury. PSYCHOSOCIAL HISTORY: Anxiety, depression, PTSD, several suicidal attempts with use of insulin. SOCIAL HISTORY: Patient never a smoker. Does not drink or use street drugs. Currently living with his . Remote history of marijuana use. FAMILY HISTORY: Mother had coronary artery disease and SD. Father, he does not know. Brother has congestive heart failure, SD, and Parkinson's disease. Home medication include: Nitroglycerin sublingual, Zoloft, ( ), spironolactone, Lasix, metformin, omeprazole, Ranexa, NovoLog, metoclopramide, baclofen, ( ), gabapentin, glimepiride, Imdur, ranitidine, ( ). ALLERGIES: PENICILLIN, MECLIZINE, ERYTHROMYCIN BASE, SHELLFISH, ( ), KEFLEX, CODEINE, NAPROSYN, ATORVASTATIN, IODINATED CONTRAST MEDIA, BIRD FECES, SEAFOOD. PHYSICAL EXAMINATION: A 40-year-old man lying in the bed, awake, alert, oriented x3, appears to be in no apparent distress. VITALS: Blood pressure is 110/72, pulse is 93, respirations 16, temperature afebrile, pulse ox 93% on room air. HEENT: Atraumatic, normocephalic. Neck is supple. No JVD. CVS: S1, S2 heard. No murmurs, no gallop, no rub. LUNGS: Bilateral air entry is present. No wheezing. No crackles. Nonlabored breathing. ABDOMEN: Soft, nontender. Bowel sounds present. QUALITY CONTROL MICROBIOLOGIST: Awake, alert and oriented x3. No focal neurologic deficit. Cranial nerves grossly intact. EXTREMITIES: No edema. Pulses palpable bilaterally. No clubbing or cyanosis. PSYCHIATRIC: Cooperative. LABORATORY DATA: WBC 5.1, hemoglobin 11.9, platelets 268, INR 1.0. Sodium 135, potassium 4.5, chloride 100, bicarb is 23, BUN 17, creatinine 0.9, magnesium 1.5, troponin 0.111, 0.154. EKG, paced rhythm. Chest x-ray, no acute cardiopulmonary process. LABORATORY DATA: Reviewed. IMPRESSION: 1. Acute non-ST elevated myocardial infarction with elevated troponin levels. 2. History of significant coronary artery disease and diffuse coronary artery disease with history of multiple stents. 3. Ischemic cardiomyopathy status post AICD placement. 4. Hypertension. 5. Hyperlipidemia. 6. Anxiety, depression posttraumatic stress disorder. 7. History of multiple suicide attempts in the past. 8. History of cerebrovascular accident/transient ischemic attack, no residual weakness. 9. Diabetes mellitus, insulin-dependent. 10. Diabetic peripheral neuropathy. 11. Diabetic gastroparesis. 12. Psoriasis. Discussion and plan: A 40-year-old male with a known history of significant coronary artery disease and multiple suicide attempts admitted to the hospital with chest pain and elevated troponin level and NSTEMI. Patient will be continued on heparin at this time and home medications. Cardiology is following the patient and recommend maximum medical therapy and increase Imdur dose to 90 mg daily. Otherwise, patient is chest pain free. Will continue to monitor the patient in ICU.
[2016-05-28 11:27] LABS: Glucose,Whole Blood 219 mg/dL (75-99)
[2016-05-28 12:06] VITALS: RESP 15
[2016-05-28 15:46] LABS: Glucose,Whole Blood 55 mg/dL (75-99)
[2016-05-28 15:54] LABS: Glucose,Whole Blood 72 mg/dL (75-99)
[2016-05-28 16:50] VITALS: BP 120/75; PULSE 90; TEMP 98.2
[2016-05-28 16:53] LABS: Glucose,Whole Blood 112 mg/dL (75-99)
[2016-05-28] MEDS: PANTOPRAZOLE 40 MG TABLET PO SCH (16:57)
--- NOTE | 2016-05-28 21:53 | P.PN ---
Subjective This 40-year-old gentleman with history of ischemic heart diseasewith a several stent placements in the past, comes to the hospital with complaints of chest pain. Patient is currently being followed by a baseball scout at [facility]. Patient has diffuse disease and small vessel disease and not a good candidate for any intervention. Patient came with chest pain however his troponin values are mildly elevated but not insistent with acute coronary syndrome/type I myocardial infarction. Patient has remained stable since admission here. He wants to go home. Patient is being discharged in stable condition and he has an appointment to see his baseball scout. Objective - Vital Signs Vital signs: Vital Signs Temp 98.2 F 05/28/16 16:00 Pulse 90 05/28/16 16:00 Resp 15 05/28/16 16:00 BP 120/75 05/28/16 16:00 Pulse Ox 97 05/28/16 08:00 Intake & Output 05/28/16 05/28/16 05/29/16 06:59 18:59 06:59 Intake Total 856.991 567.056 Balance 856.991 567.056 Weight 118.9 kg Intake: IV 320 160 0.9 320 160 Intake, IV Titration 86.991 407.056 Amount Heparin Sodium,Porcine/ 86.991 407.056 D5w Pmx 25,000 unit In Dextrose/Water 1 500ml. bag @ 9 UNITS/KG/HR 20.08 mls/hr IV .Q24H JAKE Rx#: [id number] Oral 450 Other: # Voids 2 2 - Exam GENERAL EXAM: Patient is alert and oriented and doesn't appear to be in any acute distress HEENT: Normocephalic. Normal reaction of pupils, equal size, normal range of extraocular motion. No erythema or exudates in the throat. NECK: No masses, no nuchal rigidity. CHEST: No chest wall deformity. LUNGS: Equal air entry with no crackles or wheeze. HEART: S1 and S2 normal with no audible mumurs or gallops. Regular rhythm, femorals equal on both sides.. ABDOMEN: No hepatosplenomegaly, normal bowel sounds, no guarding or rigidity. SKIN: No rashes CENTRAL NERVOUS SYSTEM: No focal deficits. EXTREMITIES: No cyanosis, clubbing or edema. - Labs CBC & Chem 7: 05/28/16 05:59 05/28/16 05:59 Labs: Abnormal Lab Results - Last 24 Hours (Table) 05/27/16 05/28/16 05/28/16 Range/Units 23:23 05:59 05:59 RBC 4.24 L (4.30-5.90) m/uL Hgb 11.4 L (13.0-17.5) gm/dL Hct 34.9 L (39.0-53.0) % APTT 35.4 H (22.0-30.0) sec POC Glucose (mg/dL) (75-99) mg/dL Magnesium 1.5 L (1.6-2.3) mg/dL Troponin I (0.000-0.034) ng/mL Triglycerides 161 H (<150) mg/dL 05/28/16 05/28/16 05/28/16 Range/Units 05:59 05:59 07:57 RBC (4.30-5.90) m/uL Hgb (13.0-17.5) gm/dL Hct (39.0-53.0) % APTT 54.4 H (22.0-30.0) sec POC Glucose (mg/dL) 107 H (75-99) mg/dL Magnesium (1.6-2.3) mg/dL Troponin I 0.102 H* (0.000-0.034) ng/mL Triglycerides (<150) mg/dL 05/28/16 05/28/16 05/28/16 Range/Units 11:26 15:44 15:53 RBC (4.30-5.90) m/uL Hgb (13.0-17.5) gm/dL Hct (39.0-53.0) % APTT (22.0-30.0) sec POC Glucose (mg/dL) 219 H 55 L 72 L (75-99) mg/dL Magnesium (1.6-2.3) mg/dL Troponin I (0.000-0.034) ng/mL Triglycerides (<150) mg/dL 05/28/16 Range/Units 16:51 RBC (4.30-5.90) m/uL Hgb (13.0-17.5) gm/dL Hct (39.0-53.0) % APTT (22.0-30.0) sec POC Glucose (mg/dL) 112 H (75-99) mg/dL Magnesium (1.6-2.3) mg/dL Troponin I (0.000-0.034) ng/mL Triglycerides (<150) mg/dL Assessment and Plan (1) Acute coronary syndrome Status: Acute (2) Chest pain Status: Acute (3) Congestive heart failure Status: Acute (4) Diabetes Status: Acute (5) HTN (hypertension) Status: Acute (6) TIA (transient ischemic attack) Status: Acute Plan: patient remained clinically stable since admission. He wants to go home. Being discharged home in a stable condition. Patient already has established follow-up with his primary baseball scout
--- NOTE | 2016-05-29 13:38 | DS ---
DATE OF ADMISSION: 05/27/2016 DATE OF DISCHARGE: 05/28/2016 FINAL DIAGNOSES: 1. Chest pain with possible acute non-ST elevation myocardial infarction with elevated troponin 2. Coronary artery disease, diffuse coronary artery disease with history of multiple stents. 3. History of ischemic cardiomyopathy status post automatic implantable cardioverter-defibrillator placement. 4. Hypertension. 5. Hyperlipidemia. 6. Anxiety, depression, posttraumatic stress disorder, not otherwise specified. 7. History of multiple suicide attempts in the past. 8. History of cerebrovascular accident, transient ischemic attack. 9. No residual weakness. 10. Diabetes insulin-dependent, type II. 11. History of peripheral neuropathy. 12. History of diabetic gastroparesis. 13. History of psoriasis. Discharge disposition: The patient will be discharged in a stable condition with guarded prognosis. Cardiology cleared the patient for discharge. HISTORY OF PRESENT ILLNESS: This is a 40-year-old gentleman with a past medical history of multiple medical problems was admitted with chest pain and troponins were found to be elevated. The patient was treated medically. Cardiology saw the patient and please see business technology teacher consultation for further details. The patient's progress was limited but however, the patient is stable at this time. Patient is keen on going home. On exam, vital signs stable. CARDIOVASCULAR: S1, S2. ABDOMEN: Soft. Nervous system: No focal deficits. DISCHARGE ADVICE AND MEDICATIONS: 1. Diet is cardiac. 2. Activity limited until follow up. 3. Follow-up with Dr. Agustin 2 to 3 days. 4. Follow up with cardiology as advised. 5. Aripiprazole 10 mg q.h.s. 6. Ecotrin 320 mg p.o. daily. 7. Lioresal 10 mg 8.dulaglutide 1.5 mg Thursday. 9. Lasix 40 mg p.o. daily. 10. Gabapentin 300 mg p.o. t.i.d. 11. glimepride 4 mg a.c. b.i.d. 12. Insulin 25 subcu b.i.d. 13. Imdur 90 mg p.o. daily. 14. Tradjenta 5 mg p.o. q.h.s. 15. Zestril 5 mg p.o. daily. 16. Reglan 10 mg a.c. and at bedtime. 17. Nitrostat 0.4 sublingual p.r.n. 18. Prilosec 40 mg a.c. supper. 19. Effient 10 mg p.o. daily. 20. Ranexa 1000 mg p.o. b.i.d. 21. Crestor 40 mg p.o. daily. 22. Zoloft 20 mg p.o. daily. 23. Aldactone 25 mg. 24. Metformin 1000 mg b.i.d. Once again, the patient will be discharged in stable condition with guarded prognosis. MTDD
[2016-05-30] MEDS ORDERED: NON-FORMULARY DRUG (Dulaglutide [Trulicity] 1.5 MG) SQ SCH (00:46)
== END 2016-05-28 17:51 | disposition home or self-care (01) | DRG 282 ==
LOC: EC 22:38 → 6ICU 05-27 00:42
PROVIDERS: ADMIT Internal Medicine; ATTEND Internal Medicine
DX: I21.4 Non-ST elevation (NSTEMI) myocardial infarction (principal); I11.0 Hypertensive heart disease with heart failure; E11.42 Type 2 diabetes mellitus with diabetic polyneuropathy; I50.9 Heart failure, unspecified; E11.43 Type 2 diabetes mellitus with diabetic autonomic (poly)neuropathy; E78.5 Hyperlipidemia, unspecified; F32.9 Major depressive disorder, single episode, unspecified; F41.9 Anxiety disorder, unspecified; F43.10 Post-traumatic stress disorder, unspecified; G47.33 Obstructive sleep apnea (adult) (pediatric); I25.10 Atherosclerotic heart disease of native coronary artery without angina pectoris; I25.5 Ischemic cardiomyopathy; I73.9 Peripheral vascular disease, unspecified; K21.9 Gastro-esophageal reflux disease without esophagitis; K31.84 Gastroparesis; L40.9 Psoriasis, unspecified; M19.90 Unspecified osteoarthritis, unspecified site; Z79.4 Long term (current) use of insulin; Z82.49 Family history of ischemic heart disease and other diseases of the circulatory system; I25.2 Old myocardial infarction; Z86.73 Personal history of transient ischemic attack (TIA), and cerebral infarction without residual deficits; Z95.5 Presence of coronary angioplasty implant and graft; Z95.810 Presence of automatic (implantable) cardiac defibrillator; Z79.84 Long term (current) use of oral hypoglycemic drugs; Z79.899 Other long term (current) drug therapy
CPT/HCPCS: 36415; 71020; 80048; 80053; 80061; 82550; 82553; 83036; 83735; 84484; 85025; 85027; 85049; 85610; 85730; 93005; 96376; 99291

== ENCOUNTER 2016-05-31 22:30 | Inpatient (IN) | payer MEDICARE, OTHER ==
[2016-05-31] MEDS ORDERED: NITROGLYCERIN SL TABS 0.4 MG TAB SUBLINGUAL STA (22:32)
[2016-05-31] MEDS ORDERED: NITROGLYCERIN OINT 1 INCH/GM PACKET TOPICAL STA (22:32)
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
[2016-05-31 22:39] LABS: Glucose,Whole Blood 306 mg/dL (75-99)
[2016-05-31 22:52] LABS: Basophils % (A) 1 %; CH 26.8; CHCM 32.4; Eosinophils # (A) 0.1 k/uL (0-0.7); Eosinophils % (A) 2 %; HCT 34.8 % (39.0-53.0); HDW 3.02; HGB 11.2 gm/dL (13.0-17.5); Hypochromasia Slight; Luc # (Auto) 0.12; Luc % (Auto) 2; Lymphocytes # (A) 1.4 k/uL (1.0-4.8); Lymphocytes % (A) 23 %; MCH 26.7 pg (25.0-35.0); MCHC 32.2 g/dL (31.0-37.0); Mean Platelet Volume 7.4; Monocytes # (A) 0.3 k/uL (0-1.0); Monocytes % (A) 5 %; Neutrophils # (A) 3.9 k/uL (1.3-7.7); Neutrophils % (A) 67 %; RBC 4.19 m/uL (4.30-5.90); RDW 14.6 % (11.5-15.5); WBC 5.8 k/uL (3.8-10.6); WBC (Perox) 6.06
[2016-05-31 23:01] LABS: ALT 28 U/L (21-72); AST 18 U/L (17-59); Alkaline Phosphatase 110 U/L (38-126); Anion Gap 7 mmol/L; Blood Urea Nitrogen 24 mg/dL (9-20); Calcium 8.6 mg/dL (8.4-10.2); Carbon Dioxide 26 mmol/L (22-30); Chloride 100 mmol/L (98-107); Glucose 296 mg/dL (74-99); Magnesium 1.5 mg/dL (1.6-2.3); Non-African American GFR(MDRD) 56 (>60 ml/min/1.73 sqM); Potassium 5.5 mmol/L (3.5-5.1); Sodium 133 mmol/L (137-145); Total Bilirubin 0.4 mg/dL (0.2-1.3); Total Protein 5.7 g/dL (6.3-8.2)
--- NOTE | 2016-05-31 23:02 | XR ---
EXAMINATION TYPE: XR chest 2V DATE OF EXAM: 05/31/2016 10:53 PM COMPARISON: 05/26/2016 HISTORY: Chest pain, history of ID one week ago history of pacemaker CAD CVA CHF stents hypertension. TECHNIQUE: Frontal and lateral views of the chest are obtained. FINDINGS: There is suggestion of mild CHF changes in the chest. Left-sided pacemaker is noted. There is no pneumonia, pleural effusion, or pneumothorax seen. The cardiac silhouette size is within normal limits. The osseous structures are intact. IMPRESSION: 1. Suggestion of mild CHF changes. 2. No focal pneumonia.
[2016-05-31 23:10] LABS: Prothrombin Time 10.5 sec (9.0-12.0)
[2016-05-31] MEDS ORDERED: INSULIN LISPRO (humaLOG) 300 UNIT/3 ML VIAL SQ ONE (23:15)
[2016-05-31 23:17] LABS: Partial Thromboplastin Time 21.5 sec (22.0-30.0)
[2016-05-31 23:26] LABS: Creatine Kinase MB 3.1 ng/mL (0.0-2.4); Troponin I 0.264 ng/mL (0.000-0.034)
[2016-05-31] MEDS ORDERED: HEPARIN SODIUM,PORCINE 5,000 UNIT/ML 1 ML VIAL IV ONE (23:28)
[2016-05-31] MEDS ORDERED: NITROGLYCERIN SL TABS 0.4 MG TAB SUBLINGUAL PRN (23:35)
[2016-05-31] MEDS ORDERED: SODIUM CHLORIDE 0.9% 1,000 ML IV STA (23:37)
[2016-05-31] MEDS: HEPARIN SODIUM,PORCINE/D5W PMX 25,000 UNIT in DEXTROSE/WATER 1 500ML.BAG IV SCH (23:49)
[2016-06-01] MEDS: NITROGLYCERIN OINT 1 INCH/GM PACKET TOPICAL SCH ×5 (01:52→23:05)
[2016-06-01 01:59] LABS: Glucose,Whole Blood 101 mg/dL (75-99)
[2016-06-01] MEDS ORDERED: BACLOFEN 10 MG TAB PO PRN (04:06)
[2016-06-01] MEDS: MORPHINE SULFATE 2 MG/ML SYRINGE IVP PRN ×4 (04:51→23:10)
[2016-06-01] MEDS: RANOLAZINE 500 MG TAB.ER.12H PO SCH ×3 (04:52→17:53)
[2016-06-01 05:37] LABS: Glucose,Whole Blood 104 mg/dL (75-99)
[2016-06-01] MEDS: INSULIN LISPRO (humaLOG) 300 UNIT/3 ML VIAL SQ SCH ×4 (06:39→20:55)
[2016-06-01] MEDS: METOCLOPRAMIDE 10 MG TAB PO SCH ×4 (06:44→20:57)
[2016-06-01 07:01] LABS: Cholesterol 123 mg/dL (<200); HDL Cholesterol 50 mg/dL (40-60); Triglycerides 170 mg/dL (<150)
[2016-06-01 07:22] LABS: Creatine Kinase MB 4.9 ng/mL (0.0-2.4); Troponin I 0.586 ng/mL (0.000-0.034)
[2016-06-01] MEDS ORDERED: Magnesium Replacement Protocol 1 EACH MISC MISCELLANE PRN (07:29)
[2016-06-01] MEDS ORDERED: HEPARIN SODIUM,PORCINE 5,000 UNIT/ML 1 ML VIAL IV STA (07:47)
[2016-06-01] MEDS: MAGNESIUM SULFATE-D5W PMX 1 GM in DEXTROSE/WATER 1 100ML.BAG IVPB SCH ×2 (08:00→09:08)
[2016-06-01 08:11] LABS: Basophils % (A) 0 %; CH 26.6; CHCM 31.7; Eosinophils # (A) 0.2 k/uL (0-0.7); Eosinophils % (A) 3 %; HCT 33.9 % (39.0-53.0); HDW 3.05; HGB 11.1 gm/dL (13.0-17.5); Hypochromasia Slight; Luc # (Auto) 0.14; Luc % (Auto) 3; Lymphocytes # (A) 1.9 k/uL (1.0-4.8); Lymphocytes % (A) 35 %; MCH 27.6 pg (25.0-35.0); MCHC 32.7 g/dL (31.0-37.0); MCV 84.2 fL (80.0-100.0); Mean Platelet Volume 7.3; Monocytes # (A) 0.3 k/uL (0-1.0); Monocytes % (A) 6 %; Neutrophils % (A) 53 %; RBC 4.03 m/uL (4.30-5.90); RDW 14.6 % (11.5-15.5); WBC 5.6 k/uL (3.8-10.6); WBC (Perox) 5.93
[2016-06-01 08:12] LABS: Anion Gap 12 mmol/L; Blood Urea Nitrogen 20 mg/dL (9-20); Calcium 8.7 mg/dL (8.4-10.2); Carbon Dioxide 21 mmol/L (22-30); Chloride 106 mmol/L (98-107); Glucose 105 mg/dL (74-99); Non-African American GFR(MDRD) >60 (>60 ml/min/1.73 sqM); Sodium 139 mmol/L (137-145)
[2016-06-01 08:18] LABS: Potassium 4.6 mmol/L (3.5-5.1)
[2016-06-01] MEDS ORDERED: LISINOPRIL 5 MG TAB PO SCH (09:00)
[2016-06-01] MEDS ORDERED: ROSUVASTATIN CALCIUM 40 MG PO SCH (09:00)
[2016-06-01 11:21] LABS: Hemoglobin A1C 9.1 % (4.2-6.1)
[2016-06-01 11:38] LABS: Creatine Kinase MB 4.6 ng/mL (0.0-2.4); Troponin I 0.631 ng/mL (0.000-0.034)
--- NOTE | 2016-06-01 12:11 | P.CRDCN ---
History of Present Illness Consult date: 06/01/16 Chief complaint: Chest pain History of present illness: This is a pleasant 4-year-old gentleman with a known extensive coronary artery disease and multiple stenting who follows with a record label intern out of the town, severe ischemic cardiomyopathy, status post AICD, diabetes, hypertension, dyslipidemia presented back to the hospital complaining of chest discomfort. He was in the hospital here about a week ago with chest discomfort where his cardiac enzymes at that time were not consistent with acute coronary event and he was discharged home. He was doing well till yesterday when he was sitting at a friend's house and started experiencing chest discomfort as a sharp kind of discomfort with some radiation to the left arm without any associated symptoms. Ambulance was called and the patient was given nitroglycerin with mild improvement in the chest discomfort. The EKG showed atrial sensed ventricular paced rhythm. The cardiac enzymes came in to be slightly abnormal. The patient was started on heparin IV which I am going to continue for additional 24 hours. I am going to add beta ravinder to the current medical regimen. Beside that I would continue the current medical treatment. If the chest discomfort improves by tomorrow I will consider discharging the patient home and he can follow-up with his record label intern out of the town at [facility]. Past Medical History Past Medical History: Coronary Artery Disease (CAD), Chest Pain / Angina, Heart Failure, CVA/TIA, Diabetes Mellitus, GERD/Reflux, Hyperlipidemia, Hypertension, Myocardial Infarction (RI), Osteoarthritis (OA), Pneumonia, Sleep Apnea/CPAP/ BIPAP Additional Past Medical History / Comment(s): Coronary artery disease with multiple vessel disease, ischemic cardiomyopathy, diabetic neuropathy, hypertension hypertensive cardiovascular disease, chronic gastritis, chronic back pain, depression with multiple suicide attempts with insulin in the past.GASTROPARESIS, PSORIASES. Last Myocardial Infarction Date:: 12/2014 History of Any Multi-Drug Resistant Organisms: None Reported Past Surgical History: AICD, Appendectomy, Cholecystectomy, Heart Catheterization With Stent, Hernia Repair Additional Past Surgical History / Comment(s): Right orchiectomy, right sided hand surgery in 2001 secondary to an injury.Left heart catheterization and angioplasty with a stent placement of the LAD in 2009 and September 2010. Left heart catheterization February 2013, and August - RCA occlusion treated so farwith aggressive medical management, TEEAdditional Medical Hx: Gastroparesis, 10-23-14 HAD HEART CATH WITH PTBA TO DISTAL CIRC Past Anesthesia/Blood Transfusion Reactions: No Reported Reaction Additional Past Anesthesia/Blood Transfusion Reaction / Comment(s): . Date of Last Stent Placement:: 05/2015 Type of Cardiac Device: AICD Device Placement Date:: 09/19/15 Past Psychological History: Anxiety, Depression, PTSD Additional Psychological History / Comment(s): Several suicide attempts with use of insulin.PT STATED HAS PTSD- IN 2000- HIS 3 MONTH OLD SON IN HIS ARMS (CHILD WAS BORN 2 MONTHS PREMATURE), PT ON DISABILTY MULTIFACTORIAL PER PT. Smoking Status: Never smoker Past Alcohol Use History: Rare Additional Past Alcohol Use History / Comment(s): . He does not drink alcohol or use street drugs. He is currently living with his .PT DENIES HAVING EVER BEEN A SMOKER Past Drug Use History: None Reported Additional Drug Use History / Comment(s): NONE IN 15 YEARS has smoked marijuana - Past Family History Mother Family Medical History: Coronary Artery Disease (CAD), Myocardial Infarction (RI ) Additional Family Medical History / Comment(s): 7 RI and faulty heart valve Father History Unknown: Yes Additional Family Medical History / Comment(s): Does not know who father is Brother(s) Family Medical History: Congestive Heart Failure (CHF), Myocardial Infarction ( RI) Additional Family Medical History / Comment(s): Parkinsons Patient has Family Medical History: No Reported History Additional Family Medical History / Comment(s): There is a strong family history for heart disease, hypertension, and diabetes. Medications and Allergies Home Medications Medication Instructions Recorded Confirmed Type Nitroglycerin Sl Tabs [Nitrostat] 0.4 mg SL Q5M PRN 10/13/13 06/01/16 History Sertraline HCl [Zoloft] 200 mg PO QAM 10/13/13 06/01/16 History Linagliptin [Tradjenta] 5 mg PO HS 10/13/14 06/01/16 History Spironolactone [Aldactone] 25 mg PO DAILY 05/16/15 06/01/16 History Furosemide [Lasix] 40 mg PO DAILY 05/21/15 06/01/16 History metFORMIN HCL 1,000 mg PO AC-BID 07/03/15 06/01/16 History Omeprazole [PriLOSEC] 40 mg PO AC-SUPPER 08/13/15 06/01/16 History Ranolazine [Ranexa] 1,000 mg PO Q12H 10/03/15 06/01/16 History Metoclopramide [Reglan] 10 mg PO ACHS 12/25/15 06/01/16 History Baclofen [Lioresal] 10 mg PO TID PRN 01/13/16 06/01/16 History ARIPiprazole 10 mg PO HS 03/10/16 06/01/16 History Dulaglutide [Trulicity] 1.5 mg SQ FR 03/10/16 06/01/16 History Gabapentin 300 mg PO TID 03/10/16 06/01/16 History Glimepiride 4 mg PO AC-BID 03/10/16 06/01/16 History Rosuvastatin Calcium 40 mg PO DAILY 05/05/16 06/01/16 History Lisinopril [Zestril] 2.5 mg PO DAILY 06/01/16 06/01/16 History Allergies Allergy/AdvReac Type Severity Reaction Status Date / Time Penicillins Allergy Severe Rash/Hives Verified 06/01/16 11:34 meclizine Allergy Unknown Unknown Verified 06/01/16 11:34 erythromycin base AdvReac Severe Swelling Verified 06/01/16 11:34 [Erythromycin Base] shellfish derived AdvReac Severe Swelling Verified 06/01/16 11:34 cephalexin monohydrate AdvReac Mild Nausea & Verified 06/01/16 11:34 [From Keflex] Vomiting codeine AdvReac Unknown Swelling Verified 06/01/16 11:34 naproxen AdvReac Unknown Unknown Verified 06/01/16 11:34 atorvastatin calcium AdvReac MUSCLE PAIN Verified 06/01/16 11:34 [From Lipitor] Iodinated Contrast Media - AdvReac Unknown Verified 06/01/16 11:34 Oral and bird feces AdvReac Swelling Uncoded 05/31/16 22:36 sea food AdvReac Swelling Uncoded 05/31/16 22:36 Physical Exam Vitals: Vital Signs Temp Pulse Pulse Resp BP BP Pulse Ox 06/01/16 11:21 80 16 06/01/16 11:19 80 16 119/71 100 06/01/16 08:00 97 F L 91 16 107/66 93 L 06/01/16 04:00 96 18 119/65 96 06/01/16 02:54 98 06/01/16 02:28 97.5 F L 96 18 126/77 98 06/01/16 01:35 97.5 F L 96 18 126/77 98 06/01/16 01:10 98.0 F 98 20 159/62 98 06/01/16 00:41 64 20 148/67 98 05/31/16 23:42 87 18 135/62 97 Intake and Output 05/31/16 06/01/16 06/01/16 22:59 06:59 14:59 Intake Total 157.667 Balance 157.667 Intake: Intake, IV Titration 157.667 Amount Heparin Sodium,Porcine/ 157.667 D5w Pmx 25,000 unit In Dextrose/Water 1 500ml. bag @ 8.75 UNITS/KG/HR 20 mls/hr IV .Q24H [facility] Rx#: [id number] Other: # Voids 2 Weight 118.8 kg - Constitutional General appearance: no acute distress - Respiratory Respiratory: bilateral: CTA - Cardiovascular Rhythm: regular Heart sounds: normal: S1, S2 Results 06/01/16 05:17 06/01/16 05:17 Cardiac Enzymes 06/01/16 06/01/16 Range/Units 05:17 10:02 CK-MB (CK-2) 4.9 H* 4.6 H* (0.0-2.4) ng/mL Troponin I 0.586 H* 0.631 H* (0.000-0.034) ng/mL Coagulation 06/01/16 Range/Units 05:17 APTT 24.6 (22.0-30.0) sec Lipids 06/01/16 Range/Units 05:17 Triglycerides 170 H (<150) mg/dL Cholesterol 123 (<200) mg/dL HDL Cholesterol 50 (40-60) mg/dL CBC 06/01/16 Range/Units 05:17 WBC 5.6 (3.8-10.6) k/uL RBC 4.03 L (4.30-5.90) m/uL Hgb 11.1 L (13.0-17.5) gm/dL Hct 33.9 L (39.0-53.0) % Plt Count 241 (150-450) k/uL Comprehensive Metabolic Panel 06/01/16 Range/Units 05:17 Sodium 139 (137-145) mmol/L Potassium 4.6 (3.5-5.1) mmol/L Chloride 106 (98-107) mmol/L Carbon Dioxide 21 L (22-30) mmol/L BUN 20 (9-20) mg/dL Creatinine 1.10 (0.66-1.25) mg/dL Glucose 105 H (74-99) mg/dL Calcium 8.7 (8.4-10.2) mg/dL Current Medications Generic Name Dose Route Start Last Admin Trade Name Freq PRN Reason Stop Dose Admin Aripiprazole 10 mg 06/01/16 21:00 Abilify PO HS [facility] Aspirin 325 mg 06/01/16 09:00 Aspirin PO DAILY [facility] Baclofen 10 mg 06/01/16 04:06 Lioresal PO TID PRN Pain Furosemide 40 mg 06/01/16 09:00 Lasix PO DAILY [facility] Gabapentin 300 mg 06/01/16 09:00 Neurontin PO TID [facility] Glimepiride 4 mg 06/01/16 07:30 Amaryl PO AC-BID [facility] Heparin Sodium (Porcine) 0 unit 06/01/16 07:56 Heparin IV PER PROTOCOL PRN PER PROTOCOL Protocol Heparin Sodium/Dextrose 25,000 500 mls @ 20 mls/hr 05/31/16 23:30 06/01/16 07 :42 unit/ IV Solution IV 11.75 units/kg/hr .Q24H [facility] 26.86 mls/hr Protocol Titration 8.75 UNITS/KG/HR Sodium Chloride 1,000 mls @ 20 mls/hr 05/31/16 23:37 05/31/16 23:49 Saline 0.9% IV 06/01/16 23:36 20 mls/hr .Q24H [facility] Administration Insulin Human Lispro 0 unit 06/01/16 07:30 06/01/16 06:39 Humalog SQ Not Given ACHS [facility] Protocol Linagliptin 5 mg 06/01/16 21:00 Tradjenta PO HS [facility] Lisinopril 2.5 mg 06/01/16 09:00 Zestril PO DAILY [facility] Metformin HCl 1,000 mg 06/01/16 07:30 Glucophage PO AC-BID [facility] Metoclopramide HCl 10 mg 06/01/16 07:30 06/01/16 06:44 Reglan PO 10 mg ACHS [facility] Administration Miscellaneous Information 1 each 06/01/16 07:29 Magnesium Per Protocol MISCELLANE DAILY PRN Per Protocol Protocol Morphine Sulfate 2 mg 06/01/16 03:39 06/01/16 04:51 Morphine Sulfate (Inj) IVP 2 mg Q4H PRN Administration Pain/Discomfort Nitroglycerin 0.4 mg 05/31/16 23:35 Nitrostat SUBLINGUAL Q5M PRN Chest Pain Nitroglycerin 1 inch 06/01/16 00:00 06/01/16 06:07 Nitro-Bid Oint TOPICAL 1 inch Q6HR [facility] Administration Non-Formulary Medication 1.5 mg 06/06/16 04:06 Dulaglutide [Trulicity] SQ FR [facility] Non-Formulary Medication 40 mg 06/01/16 09:00 Rosuvastatin Calcium [Rosuvastatin Calcium] PO DAILY [facility] Pantoprazole Sodium 40 mg 06/01/16 17:30 Protonix PO AC-SUPPER [facility] Prasugrel 10 mg 06/01/16 09:00 Effient PO DAILY [facility] Ranolazine 1,000 mg 06/01/16 04:15 06/01/16 04:58 Ranexa PO 1,000 mg Q12H [facility] Administration Sertraline HCl 200 mg 06/01/16 09:00 Zoloft PO QAM [facility] Spironolactone 25 mg 06/01/16 09:00 Aldactone PO DAILY [facility] Intake and Output 05/31/16 06/01/16 06/01/16 22:59 06:59 14:59 Intake Total 157.667 Balance 157.667 Intake: Intake, IV Titration 157.667 Amount Heparin Sodium,Porcine/ 157.667 D5w Pmx 25,000 unit In Dextrose/Water 1 500ml. bag @ 8.75 UNITS/KG/HR 20 mls/hr IV .Q24H [facility] Rx#: [id number] Other: # Voids 2 Weight 118.8 kg 06/01/16 05:17 06/01/16 05:17 Assessment and Plan Plan: Assessment #1 recurrent chest discomfort #2 known severe underlying CAD and prior stenting #3 severe ischemic cardiomyopathy #4 multiple comorbid conditions Plan #1 continue the current medical treatment #2 add atenolol to the current medical treatment #3 follow-up with the patient
[2016-06-01 12:31] LABS: Glucose,Whole Blood 225 mg/dL (75-99)
[2016-06-01] MEDS: metFORMIN 500 MG TAB PO SCH ×2 (13:17→17:53)
[2016-06-01] MEDS: GLIMEPIRIDE 4 MG TAB PO SCH ×2 (13:17→17:53)
[2016-06-01] MEDS: GABAPENTIN 100 MG CAP PO SCH ×3 (13:18→20:54)
[2016-06-01] MEDS: SPIRONOLACTONE 25 MG TAB PO SCH (13:21)
[2016-06-01] MEDS: SERTRALINE 100 MG TAB PO SCH (13:21)
[2016-06-01] MEDS: PRASUGREL 10 MG TAB PO SCH (13:21)
[2016-06-01] MEDS: FUROSEMIDE 40 MG TAB PO SCH (13:21)
[2016-06-01] MEDS: LISINOPRIL 2.5 MG TAB PO SCH (13:24)
[2016-06-01] MEDS: ASPIRIN 325 MG TAB PO SCH (14:04)
[2016-06-01 17:09] LABS: Glucose,Whole Blood 264 mg/dL (75-99)
[2016-06-01] MEDS: PANTOPRAZOLE 40 MG TABLET PO SCH (17:54)
[2016-06-01] MEDS: HEPARIN SODIUM,PORCINE/D5W PMX 25,000 UNIT in DEXTROSE/WATER 1 500ML.BAG IV SCH (18:30)
[2016-06-01 20:16] LABS: Glucose,Whole Blood 216 mg/dL (75-99)
[2016-06-01] MEDS: HEPARIN SODIUM,PORCINE 5,000 UNIT/ML 1 ML VIAL IV PRN (20:52)
[2016-06-01] MEDS ORDERED: ARIPiprazole 10 MG TAB PO SCH (21:00)
[2016-06-01] MEDS ORDERED: LINAGLIPTIN 5 MG TABLET PO SCH (21:00)
[2016-06-02 02:07] VITALS: RESP 18
[2016-06-02] MEDS: HEPARIN SODIUM,PORCINE 5,000 UNIT/ML 1 ML VIAL IV PRN (03:50)
[2016-06-02] MEDS: MORPHINE SULFATE 2 MG/ML SYRINGE IVP PRN ×3 (03:50→16:29)
[2016-06-02] MEDS: RANOLAZINE 500 MG TAB.ER.12H PO SCH ×2 (04:00→15:16)
[2016-06-02] MEDS: NITROGLYCERIN OINT 1 INCH/GM PACKET TOPICAL SCH ×3 (06:34→17:12)
[2016-06-02] MEDS: metFORMIN 500 MG TAB PO SCH ×2 (06:34→17:12)
[2016-06-02] MEDS: GLIMEPIRIDE 4 MG TAB PO SCH ×2 (06:34→17:10)
[2016-06-02] MEDS: INSULIN LISPRO (humaLOG) 300 UNIT/3 ML VIAL SQ SCH ×3 (06:34→17:10)
[2016-06-02 06:35] LABS: Glucose,Whole Blood 186 mg/dL (75-99)
[2016-06-02] MEDS: METOCLOPRAMIDE 10 MG TAB PO SCH ×3 (06:35→17:12)
[2016-06-02] MEDS: FUROSEMIDE 40 MG TAB PO SCH (08:33)
[2016-06-02] MEDS: SPIRONOLACTONE 25 MG TAB PO SCH (08:33)
[2016-06-02] MEDS: ASPIRIN 325 MG TAB PO SCH (08:33)
[2016-06-02] MEDS: GABAPENTIN 100 MG CAP PO SCH ×2 (08:33→15:15)
[2016-06-02] MEDS: SERTRALINE 100 MG TAB PO SCH (08:34)
[2016-06-02] MEDS: PRASUGREL 10 MG TAB PO SCH (08:34)
[2016-06-02] MEDS: LISINOPRIL 2.5 MG TAB PO SCH (08:34)
[2016-06-02] MEDS ORDERED: ATENOLOL 12.5 MG TAB PO SCH (09:00)
[2016-06-02 12:03] LABS: Glucose,Whole Blood 210 mg/dL (75-99)
--- NOTE | 2016-06-02 13:25 | DS ---
DATE OF ADMISSION: 05/31/2016 DATE OF DISCHARGE: 06/02/2016 FINAL DIAGNOSES: 1. Chest pain, possible acute non-ST elevation myocardial infarction. 2. Troponin elevated up to 0.586. 3. History of coronary artery disease with history of multiple stents. 4. History of cardiomyopathy, status post AICD. 5. Hypertension. 6. Hyperlipidemia. 7. Anxiety, depression and posttraumatic disorder, not otherwise specified. 8. History of multiple suicide attempts in the past. 9. History of cerebrovascular accident, transient ischemic attack. 10. Diabetes mellitus type 2. 11. History of peripheral neuropathy. 12. Diabetic gastroparesis . 13. Psoriasis. 14. Mild hypoalbuminemia with mild to moderate protein calorie malnutrition. 15. Mild acute renal failure present on admission. 17. Hyperkalemia and hyponatremia, present on admission due to acute renal failure. 18. Anemia, normocytic, anemia of chronic disease. At this time the patient will be discharged in a stable condition with guarded prognosis. The patient will be transferred to [facility] for cardiology recommendation. HISTORY OF PRESENT ILLNESS: This 40-year-old gentleman with a past medical mentioned above was admitted with chest pain. The patient had two elevated troponins at 0.586. Cardiology saw the patient. Acute coronary syndrome protocol was followed and the torch straightener has talked with [facility] Cardiology and the patient will be transferred to [facility] for further evaluation and treatment management. PHYSICAL EXAMINATINON: CARDIAC: S1, S2. RESPIRATORY: Decreased breath sounds at the bases. ABDOMEN: Soft. NEURO: No focal deficits. Current medications are reviewed and include: 1. Abilify 10 mg q.h.s. 2. Aspirin 325 mg daily. 3. Tenormin 12.5 mg daily. 4. dulaglutide 10 mg daily. 5. Lasix 40 mg daily, 6. Neurontin 300 mg t.i.d. 7. Amaryl 4 mg b.i.d. 8. Heparin drip. 9. Humalog a.c. and at bedtime. 10. Tradjenta 5 mg q.h.s. 11. Zestril 2.5 mg daily. 13. Reglan 10 mg a.c. and bedtime . 14. Morphine sulfate 2 gm p.r.n. 15. Nitroglycerin 0.4 16. Nitro-Bid ointment 1 inch q.6 p.r.n. 17. Dulaglutide 1.5 mg. 18. Protonix 40 mg daily, 19. Ticlid 10 mg daily. 20. Ranexa 1000 mg b.i.d. 21. Zoloft 200 mg. 22. Aldactone 25 mg daily. MTDD
[2016-06-02 14:49] VITALS: BMI 40.4
[2016-06-02 15:20] VITALS: BP 109/60; PULSE 84; TEMP 97.2
--- NOTE | 2016-06-02 15:46 | HP ---
DATE OF ADMISSION: 05/31/2016 CHIEF COMPLAINT: Chest pain. HISTORY OF PRESENT ILLNESS: This 40-year-old gentleman with a past medical history of multiple medical problems, including history of coronary artery disease, history of chest pain, cardiomyopathy, history of any AICD, hypertension, hyperlipidemia, history of CVA, TIA, diabetes mellitus type 2, history of peripheral neuropathy, diabetic gastroparesis, being followed by Dr. Junie New in the outpatient setting was complaining of left-sided chest pain, which is rather sharp and heavy in character both. The pain is persistent. The patient came to [facility] and was admitted to the hospital for further evaluation and treatment. There is no radiation of pain. No history of headache, loss of consciousness or seizures. No active EKG changes noted. Cardiology evaluation in progress. Of note the troponins found to be 0.586 and 0.0631. Acute coronary syndrome protocol has been initiated. PAST MEDICAL HISTORY: 1. History of coronary artery disease. 2. History of chest pain. 3. History of CHF. 4. History of CVA/TIA. 5. Type 2 diabetes mellitus. 6. Gastroesophageal reflux disease. 7. Hypertension. 8. Hyperlipidemia. 9. Myocardial infarction. 11. Sleep apnea. Medications prior to admission include: Home medications are: 1. Metformin 1000 a.c. b.i.d. 2. Aldactone 25 mg daily. 3. Zoloft 20 mg q.a.m. 6. Effient 10 mg p.o. b.i.d. 7. Prilosec 40 mg a.c. supper. 8. Nitrostat 0.4 sublingual p.r.n. 9. Reglan 10 mg a.c. q.h.s. 10. Zestril 2.5 mg daily. 11. Tradjenta 5 mg p.o. q.h.s. 12. Imdur 90 mg p.o. daily. 13. Glimepiride 4 mg a.c. b.i.d. 14. Gabapentin 300 mg p.o. t.i.d. 15. Lasix 40 mg p.o. daily. 17. Lioresal 10 mg p.o. t.i.d. p.r.n. 18. Ecotrin 325 mg p.o. daily. 19. Aripiprazole 10 mg p.o. q.h.s. ALLERGIES ARE PENICILLIN, ERYTHROMYCIN, SHELLFISH, CODEINE, NAPROSYN, ATORVASTATIN, IODINATED CONTRAST DYE, BIRD FECES AND SEAFOOD. FAMILY HISTORY: History of and myocardial infarction, valves. SOCIAL HISTORY: No history of smoking. No history of alcohol intake previously. REVIEW OF SYSTEMS: ENT: No diminished vision. No diminished hearing. CARDIOVASCULAR: As mentioned earlier. RESPIRATORY: As mentioned earlier. GI: No nausea. : No dysuria. Nervous system: No numbness or weakness. ALLERGY/IMMUNOLOGY: No asthma or hayfever. MUSCULOSKELETAL: As mentioned earlier. HEMATOLOGY/ONCOLOGY: No history of anemia. ENDOCRINE: As mentioned earlier. CONSTITUTIONAL: As mentioned earlier. DERMATOLOGY: Negative. RHEUMATOLOGY: Negative. PSYCHIATRY: As mentioned earlier. PHYSICAL EXAMINATION: The patient is alert and oriented times three. Pulse is 80, blood pressure 119/71, respiratory rate 16, temperature 97.2, pulse ox 100% on room air. HEENT: Conjunctivae normal. Oral mucosa moist. NECK: No JVD. No carotid bruit. No lymph node enlargement. CARDIOVASCULAR SYSTEM: S1, S2 muffled. No S3, no S4. RESPIRATORY: Breath sounds diminished at the bases. A few scattered rhonchi and crackles. ABDOMEN: Soft, obese, nontender. No mass palpable. Legs: No edema, no swelling. Nervous system: Higher functions as mentioned. Moves all four limbs. No focal deficits. LYMPHATICS: No lymph nodes palpable in the neck, axillae or groin. SKIN: No ulcer, rash or bleeding. LABS: WBC is 5.6, hemoglobin 11.1. Glucose 105, 225, 264, troponin as noted. ASSESSMENT: 1. Chest pain, possible acute coronary syndrome and acute non-ST elevation myocardial infarction. 2. Troponin 0.631. 3. Diabetes mellitus type 2. 4. History of coronary artery disease, diffuse coronary artery disease with a history of multiple stents. 5. History of ischemic cardiomyopathy with chronic systolic dysfunction with congestive heart failure. 6. Status post AICD. 7. Hypertension. 8. Hyperlipidemia. 9. Anxiety, depression, posttraumatic disorder, not otherwise specified. 10. History of multiple suicide attempts in the past. 11. History of cerebrovascular accident, transient ischemic attack. 12. No residual weakness. 13. Diabetes mellitus type 2. 14. History of peripheral neuropathy. 15. History of diabetic gastroparesis. 16. History of psoriasis. 17. NO CODE, NO CPR, NO VENT. RECOMMENDATIONS AND DISCUSSION: In this 40-year-old gentleman who presented with multiple complex medical issues, we will monitor the patient closely, continue antiplatelet agents, acute coronary syndrome. Cardiology evaluation. Discussed with Dr. Dewey. Dr. Dewey will review the chart and decide further course of action. Dr. 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 In any case, prognosis guarded. Further recommendations to follow. MTDD
--- NOTE | 2016-06-02 16:16 | P.PN ---
Subjective Principal diagnosis: Chest pain This is a pleasant 4-year-old gentleman with a known extensive coronary artery disease and multiple stenting who follows with a real estate manager out of the town, severe ischemic cardiomyopathy, status post AICD, diabetes, hypertension, dyslipidemia presented back to the hospital complaining of chest discomfort. He was in the hospital here about a week ago with chest discomfort where his cardiac enzymes at that time were not consistent with acute coronary event and he was discharged home. On this occasion patient again presents with symptoms of chest discomfort. EKG on admission showed a atrial sensed ventricular paced rhythm with minimal inferior ST depression noted. Troponin 0.26, 0.58, 0.63. Close time of my examination of this morning, patient states he had several episodes of chest pressure and heaviness through the night last night, intermittent, he's requesting a transfer to [facility] where his real estate manager is. We will work on arranging a transfer. Objective - Vital Signs Vital signs: Vital Signs Temp 97.2 F L 06/02/16 15:19 Pulse 84 06/02/16 15:19 Resp 18 06/02/16 15:19 BP 109/60 06/02/16 15:19 Pulse Ox 95 06/02/16 15:19 Intake & Output 06/01/16 06/02/16 06/02/16 18:59 06:59 18:59 Intake Total 088.822 8433.110 576 Output Total 450 Balance 480.553 7996.110 576 Weight 115.4 kg 115.4 kg Intake: IV 160 600 Heparin Sodium,Porcine/ 160 360 D5w Pmx 25,000 unit In Dextrose/Water 1 500ml. bag @ 8.75 UNITS/KG/HR 20 mls/hr IV .Q24H [facility] Rx#: [id number] Sodium Chloride 0.9% 1, 240 000 ml @ 20 mls/hr IV . Q24H [facility] Rx#:[id number] Intake, IV Titration 447.755 301.110 Amount Heparin Sodium,Porcine/ 447.755 301.110 D5w Pmx 25,000 unit In Dextrose/Water 1 500ml. bag @ 8.75 UNITS/KG/HR 20 mls/hr IV .Q24H [facility] Rx#: [id number] Oral 222 720 576 Output: Urine 450 Other: # Voids 1 2 - Exam PHYSICAL EXAMINATION: HEENT: Head is atraumatic, normocephalic. Pupils equal, round. Neck is supple. There is no elevated jugular venous pressure. HEART EXAMINATION: Heart S1, S2 normal. No murmur or gallop heard. CHEST EXAMINATION: Lungs are clear with mild scattered wheezes throughout. ABDOMEN: Soft, nontender. Bowel sounds are heard. No organomegaly noted. EXTREMITIES: 2+ peripheral pulses with trace evidence of peripheral edema and no calf tenderness noted. NEUROLOGIC patient is awake, alert and oriented -3. . - Labs CBC & Chem 7: 06/01/16 05:17 06/01/16 05:17 Labs: Abnormal Lab Results - Last 24 Hours (Table) 06/01/16 06/01/16 06/01/16 Range/Units 17:08 19:04 20:15 APTT 19.2 L (22.0-30.0) sec POC Glucose (mg/dL) 264 H 216 H (75-99) mg/dL 06/02/16 06/02/16 06/02/16 Range/Units 02:41 06:33 09:28 APTT 44.2 H 62.6 H (22.0-30.0) sec POC Glucose (mg/dL) 186 H (75-99) mg/dL 06/02/16 Range/Units 12:01 APTT (22.0-30.0) sec POC Glucose (mg/dL) 210 H (75-99) mg/dL Assessment and Plan (1) Ischemic cardiomyopathy Status: Acute (2) AICD (automatic cardioverter/defibrillator) present Status: Acute (3) CAD (coronary artery disease) Status: Acute (4) HTN (hypertension) Status: Acute (5) Hyperlipemia Status: Acute (6) Diabetes Status: Acute (7) Acute coronary syndrome Status: Acute Plan: From cardiology's perspective, we'll continue the patient on his current medications. We will also speak with his real estate manager, Dr. Peres regarding a possible transfer. Further recommendations will be based patient's progress within the next 24 hours. DNP note has been reviewed, I agree with a documented findings and plan of care. Patient was seen and examined.
[2016-06-02 16:37] LABS: Glucose,Whole Blood 162 mg/dL (75-99)
[2016-06-02] MEDS: PANTOPRAZOLE 40 MG TABLET PO SCH (17:12)
[2016-06-06] MEDS ORDERED: NON-FORMULARY DRUG (Dulaglutide [Trulicity] 1.5 MG) SQ SCH (04:06)
== END 2016-06-02 19:23 | disposition short-term general hospital (02) | DRG 281 ==
LOC: EC 22:30 → 6SEL 23:35
PROVIDERS: ADMIT Hospitalist; ATTEND Hospitalist
DX: I21.4 Non-ST elevation (NSTEMI) myocardial infarction (principal); E44.0 Moderate protein-calorie malnutrition; N17.9 Acute kidney failure, unspecified; I50.22 Chronic systolic (congestive) heart failure; E87.1 Hypo-osmolality and hyponatremia; K31.84 Gastroparesis; E11.42 Type 2 diabetes mellitus with diabetic polyneuropathy; I11.0 Hypertensive heart disease with heart failure; E11.65 Type 2 diabetes mellitus with hyperglycemia; D63.8 Anemia in other chronic diseases classified elsewhere; I25.10 Atherosclerotic heart disease of native coronary artery without angina pectoris; E11.43 Type 2 diabetes mellitus with diabetic autonomic (poly)neuropathy; E78.5 Hyperlipidemia, unspecified; E87.5 Hyperkalemia; F32.9 Major depressive disorder, single episode, unspecified; F41.9 Anxiety disorder, unspecified; F43.10 Post-traumatic stress disorder, unspecified; G47.30 Sleep apnea, unspecified; I25.2 Old myocardial infarction; I25.5 Ischemic cardiomyopathy; K21.9 Gastro-esophageal reflux disease without esophagitis; L40.9 Psoriasis, unspecified; M19.90 Unspecified osteoarthritis, unspecified site; G89.29 Other chronic pain; M54.9 Dorsalgia, unspecified; K29.50 Unspecified chronic gastritis without bleeding; Z68.41 Body mass index [BMI] 40.0-44.9, adult; Z79.82 Long term (current) use of aspirin; Z79.02 Long term (current) use of antithrombotics/antiplatelets; Z79.4 Long term (current) use of insulin; Z79.899 Other long term (current) drug therapy; Z95.810 Presence of automatic (implantable) cardiac defibrillator; Z88.0 Allergy status to penicillin; Z88.8 Allergy status to other drugs, medicaments and biological substances; Z88.1 Allergy status to other antibiotic agents; Z91.041 Radiographic dye allergy status; Z88.5 Allergy status to narcotic agent; Z91.013 Allergy to seafood; Z95.5 Presence of coronary angioplasty implant and graft; Z82.49 Family history of ischemic heart disease and other diseases of the circulatory system
CPT/HCPCS: 36415; 71020; 80048; 80053; 80061; 82550; 82553; 83036; 83735; 84484; 85025; 85610; 85730; 93005; 96365; 96376; 99291

== ENCOUNTER 2016-06-09 20:12 | Observation (INO) | payer MEDICARE, OTHER ==
[2016-06-09] MEDS ORDERED: IV VANCOMYCIN PER PHARMACY 1 EACH MISC MISCELLANE PRN (20:30)
[2016-06-09] MEDS ORDERED: SODIUM CHLORIDE 0.9% 1,000 ML IV ONE (20:30)
[2016-06-09] MEDS ORDERED: RX INFO: IV CONTRAST WAS GIVEN 1 EACH MISC MISCELLANE PRN (20:41)
[2016-06-09] MEDS ORDERED: methylPREDNISolone SOD SUCCI 125 MG/2 ML VIAL IV STA (20:43)
[2016-06-09] MEDS ORDERED: diphenhydrAMINE 50 MG/ML 1 ML VIAL IVP STA (20:43)
[2016-06-09] MEDS ORDERED: FAMOTIDINE 20 MG/2 ML VIAL IV STA (20:47)
[2016-06-09] MEDS ORDERED: MORPHINE SULFATE 10 MG/ML SYRINGE IVP STA (20:48)
--- NOTE | 2016-06-09 20:54 | ED ---
Skin/Abscess/FB HPI - General Chief complaint: Skin/Abscess/Foreign Body Stated complaint: abscess/trouble hearing Time Seen by Provider: 06/09/16 20:17 Source: patient, RN notes reviewed Mode of arrival: ambulatory Limitations: no limitations - History of Present Illness Initial comments: Patient is a 40-year-old male presents to the emergency room for evaluation of left ear pain. Patient states that over the past few days he began developing pain and swelling on the anterior portion of his left ear. Patient states he's now having increased pain inside his ear and has had decreased hearing in his left ear. Patient states he is having 10 out of 10 pain and swelling at the area. Patient states the pain is radiating inside his ear and down the left side of his neck. Patient states he felt very warm last night but denies any known fevers. Patient denies any history of MRSA. - Related Data Home Medications Medication Instructions Recorded Confirmed Nitroglycerin Sl Tabs [Nitrostat] 0.4 mg SL Q5M PRN 10/13/13 06/01/16 Sertraline HCl [Zoloft] 200 mg PO QAM 10/13/13 06/01/16 Linagliptin [Tradjenta] 5 mg PO HS 10/13/14 06/01/16 Spironolactone [Aldactone] 25 mg PO DAILY 05/16/15 06/01/16 Furosemide [Lasix] 40 mg PO DAILY 05/21/15 06/01/16 metFORMIN HCL 1,000 mg PO AC-BID 07/03/15 06/01/16 Omeprazole [PriLOSEC] 40 mg PO AC-SUPPER 08/13/15 06/01/16 Metoclopramide [Reglan] 10 mg PO ACHS 12/25/15 06/01/16 Baclofen [Lioresal] 10 mg PO TID PRN 01/13/16 06/01/16 ARIPiprazole 10 mg PO HS 03/10/16 06/01/16 Dulaglutide [Trulicity] 1.5 mg SQ FR 03/10/16 06/01/16 Glimepiride 4 mg PO AC-BID 03/10/16 06/01/16 Rosuvastatin Calcium 40 mg PO DAILY 05/05/16 06/01/16 Lisinopril [Zestril] 2.5 mg PO DAILY 06/01/16 06/01/16 Acarbose [Precose] 25 mg PO TID 06/09/16 06/09/16 Gabapentin [Neurontin] 300 mg PO TID 06/09/16 06/09/16 Ranolazine [Ranexa] 1,000 mg PO BID 06/09/16 06/09/16 Sulfamethox-Tmp 800-160Mg [Bactrim 1 tab PO Q12HR 06/09/16 06/09/16 DS 800-160 mg] Previous Rx's Medication Instructions Recorded Prasugrel [Effient] 10 mg PO DAILY #14 tab 06/01/14 Aspirin EC [Ecotrin] 325 mg PO DAILY tablet. 12/08/14 Isosorbide Mononitrate ER [Imdur] 90 mg PO DAILY #120 tab.er.24h 05/28/16 Allergies Allergy/AdvReac Type Severity Reaction Status Date / Time Penicillins Allergy Severe Rash/Hives Verified 06/09/16 20:16 meclizine Allergy Unknown Unknown Verified 06/09/16 20:16 erythromycin base AdvReac Severe Swelling Verified 06/09/16 20:16 [Erythromycin Base] shellfish derived AdvReac Severe Swelling Verified 06/09/16 20:16 cephalexin monohydrate AdvReac Mild Nausea & Verified 06/09/16 20:16 [From Keflex] Vomiting codeine AdvReac Unknown Swelling Verified 06/09/16 20:16 naproxen AdvReac Unknown Unknown Verified 06/09/16 20:16 atorvastatin calcium AdvReac MUSCLE PAIN Verified 06/09/16 20:16 [From Lipitor] Iodinated Contrast Media - AdvReac Unknown Verified 06/09/16 20:16 Oral and bird feces AdvReac Swelling Uncoded 06/09/16 20:16 sea food AdvReac Swelling Uncoded 06/09/16 20:16 Review of Systems ROS Statement: Those systems with pertinent positive or pertinent negative responses have been documented in the HPI. ROS Other: All systems not noted in ROS Statement are negative. Past Medical History Past Medical History: Coronary Artery Disease (CAD), Chest Pain / Angina, Heart Failure, CVA/TIA, Diabetes Mellitus, GERD/Reflux, Hyperlipidemia, Hypertension, Myocardial Infarction (ND), Osteoarthritis (OA), Pneumonia, Sleep Apnea/CPAP/ BIPAP Additional Past Medical History / Comment(s): Coronary artery disease with multiple vessel disease, ischemic cardiomyopathy, diabetic neuropathy, hypertension hypertensive cardiovascular disease, chronic gastritis, chronic back pain, depression with multiple suicide attempts with insulin in the past.GASTROPARESIS, PSORIASES. Last Myocardial Infarction Date:: 12/2014 History of Any Multi-Drug Resistant Organisms: None Reported Past Surgical History: AICD, Appendectomy, Cholecystectomy, Heart Catheterization With Stent, Hernia Repair Additional Past Surgical History / Comment(s): Right orchiectomy, right sided hand surgery in 2001 secondary to an injury.Left heart catheterization and angioplasty with a stent placement of the LAD in 2009 and September 2010. Left heart catheterization February 2013, and August - RCA occlusion treated so farwith aggressive medical management, TEEAdditional Medical Hx: Gastroparesis, 6- HAD HEART CATH WITH PTBA TO DISTAL CIRC Past Anesthesia/Blood Transfusion Reactions: No Reported Reaction Additional Past Anesthesia/Blood Transfusion Reaction / Comment(s): . Date of Last Stent Placement:: 05/2015 Type of Cardiac Device: AICD Device Placement Date:: 09/19/15 Past Psychological History: Anxiety, Depression, PTSD Additional Psychological History / Comment(s): Several suicide attempts with use of insulin.PT STATED HAS PTSD- IN 2000- HIS 3 MONTH OLD SON IN HIS ARMS (CHILD WAS BORN 2 MONTHS PREMATURE), PT ON DISABILTY MULTIFACTORIAL PER PT. Smoking Status: Never smoker Past Alcohol Use History: Rare Additional Past Alcohol Use History / Comment(s): . He does not drink alcohol or use street drugs. He is currently living with his .PT DENIES HAVING EVER BEEN A SMOKER Past Drug Use History: None Reported Additional Drug Use History / Comment(s): NONE IN 15 YEARS has smoked marijuana - Past Family History Mother Family Medical History: Coronary Artery Disease (CAD), Myocardial Infarction (ND ) Additional Family Medical History / Comment(s): 7 ND and faulty heart valve Father History Unknown: Yes Additional Family Medical History / Comment(s): Does not know who father is Brother(s) Family Medical History: Congestive Heart Failure (CHF), Myocardial Infarction ( ND) Additional Family Medical History / Comment(s): Parkinsons Patient has Family Medical History: No Reported History Additional Family Medical History / Comment(s): There is a strong family history for heart disease, hypertension, and diabetes. General Exam - General Exam Comments Initial Comments: Sitting in exam room, no acute distress. Limitations: no limitations General appearance: alert, in no apparent distress Head exam: Present: atraumatic, normocephalic, normal inspection Eye exam: Present: normal appearance, PERRL, EOMI ENT exam: Present: normal oropharynx, TM's normal bilaterally, normal external ear exam, other (Cellulitis and edema of the anterior portion of the left ear.) Expanded Mouth exam: Present: normal external inspection Neck exam: Present: normal inspection, full ROM, lymphadenopathy (Left anterior cervical) Respiratory exam: Present: normal lung sounds bilaterally. Absent: respiratory distress Cardiovascular Exam: Present: normal rhythm, tachycardia, normal heart sounds Extremities exam: Present: normal inspection Back exam: Present: normal inspection Neurological exam: Present: alert, oriented X3, CN II-XII intact, normal gait Psychiatric exam: Present: normal affect, normal mood Skin exam: Present: warm, dry Course Vital Signs 06/09/16 20:14 Temperature 98.1 F Pulse Rate 104 H Respiratory 18 Rate Blood Pressure 133/77 O2 Sat by Pulse 98 Oximetry Medical Decision Making - Medical Decision Making Patient is a 40-year-old male presents to the emergency room for evaluation of left-sided facial cellulitis. Area of cellulitis is directly over the left parotid gland. Case discussed with Dr. Smith. Dr. Smith also evaluated patient and recommended admission. Case discussed with CAMILO Portillo and advised soft tissue neck CT and ENT consult if CT shows any abnormal findings. Lindsey agreed to admit for Dr. Chambers. Patient will be started on IV Vanco. Disposition Clinical Impression: Cellulitis and abscess of face Disposition: ADMITTED IP TO THIS HOSP Condition: Stable Referrals: Junie New MD [Primary Care Provider] - 1-2 days Decision Date: 06/09/16
[2016-06-09] MEDS ORDERED: NALOXONE 0.4 MG/ML 1 ML VIAL IV PRN (21:00)
[2016-06-09] MEDS ORDERED: VANCOMYCIN 1,750 MG in SODIUM CHLORIDE 0.9% 250 ML IVPB ONE (21:00)
[2016-06-09 21:11] LABS: Basophils % (A) 0 %; CH 27.2; CHCM 33.7; Eosinophils # (A) 0.1 k/uL (0-0.7); Eosinophils % (A) 2 %; HCT 33.6 % (39.0-53.0); HDW 3.12; HGB 10.9 gm/dL (13.0-17.5); Luc # (Auto) 0.12; Luc % (Auto) 2; Lymphocytes # (A) 1.2 k/uL (1.0-4.8); Lymphocytes % (A) 16 %; MCH 26.3 pg (25.0-35.0); MCHC 32.4 g/dL (31.0-37.0); MCV 81.1 fL (80.0-100.0); Mean Platelet Volume 7.7; Monocytes # (A) 0.5 k/uL (0-1.0); Monocytes % (A) 6 %; Neutrophils # (A) 5.6 k/uL (1.3-7.7); Neutrophils % (A) 74 %; RBC 4.15 m/uL (4.30-5.90); RDW 15.2 % (11.5-15.5); WBC 7.5 k/uL (3.8-10.6); WBC (Perox) 7.64
[2016-06-09 21:19] LABS: ALT 27 U/L (21-72); AST 18 U/L (17-59); Alkaline Phosphatase 119 U/L (38-126); Amylase 32 U/L (30-110); Anion Gap 11 mmol/L; Blood Urea Nitrogen 20 mg/dL (9-20); Carbon Dioxide 23 mmol/L (22-30); Chloride 97 mmol/L (98-107); Glucose 185 mg/dL (74-99); Non-African American GFR(MDRD) >60 (>60 ml/min/1.73 sqM); Potassium 4.4 mmol/L (3.5-5.1); Sodium 131 mmol/L (137-145); Total Bilirubin 0.7 mg/dL (0.2-1.3)
--- NOTE | 2016-06-09 22:00 | CT ---
EXAMINATION TYPE: CT soft tissue neck w con DATE OF EXAM: 06/09/2016 9:46 PM COMPARISON: NONE HISTORY: Left sided facial swelling with a wound for [address] DLP: 711.4 mGycm Automated exposure control for dose reduction was used. CONTRAST: CT scan of the neck is performed following with IV Contrast, patient injected with 100 mL of Omnipaqu e 300. Axial images are obtained, coronal and sagittal reformatted images are reviewed. FINDINGS: There is normal branching pattern of the great vessels on the aortic arch. Thyroid gland is symmetric . There is no evidence of a pharyngeal mass. Epiglottis is normal. Subglottic trachea appears normal. Tonsils and adenoids appear normal. The left parotid gland show some superficial soft tissue swellin g and edema. I see no parotid mass. Submandibular salivary glands are symmetric. There are anterior t riangle cervical lymph nodes that measure up to 1.5 cm. Mandible is intact. Maxilla is intact. The vi sualized paranasal sinuses appear normal. There are sclerotic changes in the right mastoid sinus. The re is incomplete pneumatization of the left mastoid sinus. IMPRESSION: There is subcutaneous edema over the left parotid gland and anterior to the left year co nsistent with cellulitis. No abscess seen. No parotid gland mass identified. There are changes of bilateral mastoiditis and worse on the right side.
[2016-06-09 22:13] LABS: Hemoglobin A1C 9.2 % (4.2-6.1)
[2016-06-09 22:30] VITALS: RESP 16
[2016-06-09 22:31] LABS: Glucose,Whole Blood 168 mg/dL (75-99)
[2016-06-09] MEDS: SODIUM CHLORIDE 0.9% 1,000 ML IV SCH (23:48)
[2016-06-10] MEDS: INSULIN LISPRO (humaLOG) 300 UNIT/3 ML VIAL SQ SCH ×3 (00:07→12:33)
[2016-06-10] MEDS: MORPHINE SULFATE 4 MG/ML SYRINGE IV PRN ×4 (00:29→14:06)
[2016-06-10] MEDS: PANTOPRAZOLE 40 MG/10 ML VIAL IVP SCH ×2 (00:30→07:58)
[2016-06-10] MEDS ORDERED: VANCOMYCIN 1,750 MG in SODIUM CHLORIDE 0.9% 250 ML IVPB SCH (06:00)
[2016-06-10] MEDS ORDERED: methylPREDNISolone SOD SUCCI 125 MG/2 ML VIAL IV SCH (06:00)
[2016-06-10] MEDS ORDERED: NON-FORMULARY DRUG (Metformin Hcl [Metformin Hcl] 1,000 MG) PO SCH (07:30)
[2016-06-10] MEDS: GABAPENTIN 300 MG CAP PO SCH ×2 (07:58→16:47)
[2016-06-10 08:03] LABS: CH 26.8; CHCM 31.4; HCT 34.6 % (39.0-53.0); HDW 2.87; HGB 10.7 gm/dL (13.0-17.5); Hypochromasia Slight; MCH 26.5 pg (25.0-35.0); MCHC 30.8 g/dL (31.0-37.0); MCV 85.9 fL (80.0-100.0); Mean Platelet Volume 7.8; RBC 4.03 m/uL (4.30-5.90); RDW 15.2 % (11.5-15.5)
[2016-06-10 08:14] LABS: Anion Gap 11 mmol/L; Blood Urea Nitrogen 22 mg/dL (9-20); Calcium 8.8 mg/dL (8.4-10.2); Carbon Dioxide 20 mmol/L (22-30); Chloride 102 mmol/L (98-107); Glucose 276 mg/dL (74-99); Magnesium 1.9 mg/dL (1.6-2.3); Non-African American GFR(MDRD) >60 (>60 ml/min/1.73 sqM); Potassium 5.2 mmol/L (3.5-5.1); Sodium 133 mmol/L (137-145)
[2016-06-10 08:15] LABS: Glucose,Whole Blood 320 mg/dL (75-99)
--- NOTE | 2016-06-10 08:32 | CONS ---
DATE OF CONSULTATION: REASON FOR CONSULTATION: Left facial cellulitis. HISTORY: This is a 40-year-old white male who was actually recently inpatient for myocardial infarction. He states that a few days ago he had a small open area on the left cheek just in front of the ear and it was bleeding. He thinks due to his anticoagulants, but he was also picking at this area. It then became swollen and red and sore and therefore he presented to the ER last night for evaluation. There was some report of earache and decreased hearing; however, he denies this at this point. He had a CT scan which showed evidence of cellulitis over the left parotid, but no abscess. He has not had difficulties with skin-based infections previously. He had some subjective fever, but no objective fevers. He does have a history of ear infections in the past periodically, but no ear surgery. He was placed on vancomycin and steroids last night and has improved already as far as pain and swelling. It appears that he was on some Bactrim started on 06/09 also. Home medications will not be enumerated as they are in the chart already. Allergies to PENICILLIN, MECLIZINE, ERYTHROMYCIN, SHELLFISH, CEPHALEXIN, CODEINE, NAPROXEN, LIPITOR, IODINE. PAST MEDICAL HISTORY: Positive for coronary disease, CVA/TIA, diabetes, GERD, hyperlipidemia, hypertension, myocardial infarction, arthritis, sleep apnea. PAST SURGICAL HISTORY: AICD, appendectomy, cholecystectomy, heart catheterization with stents, herniorrhaphy, hand surgery. SOCIAL HISTORY: Does not smoke. Drinks alcohol rarely. FAMILY HISTORY: Noncontributory. REVIEW OF SYSTEMS: Noncontributory other than as above. PHYSICAL EXAM: A well-developed, white male in no acute distress. He is awake and alert and oriented x3. He is conversant. HEENT: Head normocephalic and atraumatic. Facial exam shows moderate localized erythema preauricular on the left facial area with induration although a centimeter or less of induration. There is an opened eschar approximately 13 x 12 mm across of the skin with no fluctuance or purulence. The ears show the canals to be clear. Tympanic membranes are unremarkable, mobile. The nose shows no drainage or obstruction. Mouth and throat show no abnormal masses or lesions. Normal salivary flow from the Florence's and Stensen's ducts. No trismus. Neck is supple without adenopathy or tenderness. ASSESSMENT: Left facial cellulitis. PLAN: ( ) continuing a current treatment. If he is not improving further, then will consider infectious disease consultation. He is improving already. Once he improves further then could be discharged on oral antibiotics likely a sulfa based as would certainly consider MRSA. He did have some changes on his mastoids on the CT which appeared chronic. This does not appear to be otologic in nature. There is no evidence of abscess and therefore no surgical indication at this point. If you have any questions or concerns, please feel contact me.
[2016-06-10 08:42] VITALS: BP 137/71; PULSE 100; TEMP 97.7
[2016-06-10] MEDS ORDERED: ASPIRIN 325 MG TAB PO SCH (09:00)
[2016-06-10] MEDS ORDERED: PRASUGREL 10 MG TAB PO SCH (09:00)
[2016-06-10] MEDS: SODIUM CHLORIDE 0.9% 1,000 ML IV SCH (09:51)
[2016-06-10] MEDS ORDERED: BACLOFEN 10 MG TAB PO PRN (11:02)
[2016-06-10] MEDS ORDERED: NITROGLYCERIN SL TABS 0.4 MG TAB SUBLINGUAL PRN (11:02)
[2016-06-10] MEDS ORDERED: METOCLOPRAMIDE 10 MG TAB PO SCH (12:30)
[2016-06-10] MEDS ORDERED: ACARBOSE 25 MG TAB PO SCH (12:30)
[2016-06-10 12:34] LABS: Glucose,Whole Blood 219 mg/dL (75-99)
--- NOTE | 2016-06-10 12:36 | HP ---
DATE OF ADMISSION: Patient came in with redness and swelling of the left side of the face and patient has a nidus of infection where he had a pimple around the upper cheek area on the left side, which he was messing up with and which led to cellulitis and the small pimple area is nidus of infection. Patient improved with vancomycin, his redness completely improved. Patient was complaining of ear pain, but ENT evaluated the patient, does not believe any inner ear involvement. Patient denied any oral cavity pain or pain in the back tooth or toothache and patient was complaining of decreased hearing, which improved at this point of time, and patient was started on systemic steroids for swelling. I do not believe it is necessary at this point of time. Those will be discontinued and patient improved with vancomycin, probably can be discharged home but unfortunately, I cannot use Bactrim for two reasons; borderline kidney function and borderline elevated potassium. Patient was already on Bactrim at home. The other choices being clindamycin and doxycycline which are not a stronger antibiotics for cellulitis. The other choice will be linezolid which insurance has to approve. Because of these reasons, I will get Infectious Disease to evaluate the patient for recommendations regarding antibiotics and if we are able to find an oral antibiotic for him, patient should be able to go home or else patient may need to stay here for IV antibiotics. The patient denied any fever or chills. Patient was tachycardic when he came in. Patient does not have any leukocytosis. REVIEW OF SYSTEMS: CONSTITUTIONAL: No fever, no malaise, no fatigue. HEENT: As described in HPI. CARDIOVASCULAR: No chest pain, orthopnea, PND, no palpitations, no syncope. PULMONARY: No shortness of breath, no cough, no hemoptysis. GASTROINTESTINAL: No diarrhea, no nausea, no vomiting, no abdominal pain. Normoactive bowel sounds. NEUROLOGICAL: No headaches, no weakness, no numbness. HEMATOLOGICAL: Denies any bleeding or petechiae. GENITOURINARY: Denies any burning micturition, frequency, or urgency. MUSCULOSKELETAL/RHEUMATOLOGICAL: Denies any joint pain, swelling, or any muscle pain. ENDOCRINE: Denies any polyuria or polydipsia. The rest of the 14 point review of systems is negative. MEDICATIONS: Patient is on a lot of medications including nitroglycerin, Sertraline, linagliptin, spironolactone, Lasix, metformin, omeprazole, metoclopramide. Patient was recently admitted to the hospital and patient's home medications include: 1. Nitroglycerine. 2. Sertraline. 3. Linagliptin. 4. Spironolactone. 5. Lasix. 6. Metformin. 7. Omeprazole. 8. Metoclopramide. 9. Baclofen. 10. Aripiprazole. 11. Trulicity. 12. Glimepiride. 13. Rosuvastatin. 14. Lisinopril. 15. Acarbose. 16. Gabapentin. 17. Ranolazine. 18. Bactrim. Other medications include Prasugrel, aspirin, isosorbide mononitrate. ALLERGIES: Allergic to PENICILLIN, MECLIZINE, AZITHROMYCIN, KEFLEX, NAPROXEN, ATORVASTATIN, IODINATED RADIOCONTRAST, SEAFOOD. PAST MEDICAL HISTORY: Significant for coronary artery disease, congestive heart failure with ejection fraction of 20% to 25%, CVA, diabetes mellitus, gastroesophageal reflux disease, hyperlipidemia, hypertension, myocardial infarction, pneumonia, sleep apnea. PAST SURGICAL HISTORY: AICD, appendectomy, cholecystectomy, cardiac catheterization with shunt placement, anxiety, depression, PTSD. SOCIAL HISTORY: Denied any smoking, alcohol abuse or any drug abuse. FAMILY HISTORY: Mother had coronary artery disease, myocardial infarction, father's history is unknown. PHYSICAL EXAMINATION: Temperature 97.7, pulse of 100, respiratory rate of 16, blood pressure 137/71, saturating at 93% on room air. HEENT: Patient has an area of skin breakdown which was a previous pimple area where he has scratched with led to skin breakdown and cellulitis, although I did not see any cellulitis as the facial swelling at this point of time, which completely improved at this point of time with IV vancomycin. GENERAL: The patient is alert and oriented x3, not in any acute distress. Well developed, well nourished. CARDIOVASCULAR: S1 and S2 present. No murmurs, rubs, or gallops. PULMONARY: Chest is clear to auscultation, no wheezing or crackles. ABDOMEN: Soft, nontender, nondistended, normoactive bowel sounds. No palpable organomegaly. MUSCULOSKELETAL: No joint swelling or deformity. EXTREMITIES: No cyanosis, clubbing, or pedal edema. NEUROLOGICAL: Gross neurological examination did not reveal any focal deficits. SKIN: No rashes. LABORATORY DATA: CBC and comprehensive metabolic profile is abnormal for mildly low sodium of 133, potassium of 5.2. Blood glucose is elevated due to systemic steroids which were discontinued. ASSESSMENT AND PLAN: 1. Left facial cellulitis, improved with vancomycin. Management as mentioned above. Consult Infectious Disease for above mentioned reasons. 2. Mild hyponatremia, Aldactone is being discontinued because of the elevated potassium, lisinopril I will hold it for today, can restart when he goes home. 3. Hyperkalemia, mild and this as the result of three medications: 1) lisinopril, 2) Aldactone; 3) Bactrim. Patient cannot take Bactrim because borderline renal function. 4. Acute renal failure secondary to diuretic therapy along with Bactrim. 5. Elevated blood sugars due to systemic steroids which will were discontinued which are not necessary at this point of time. 6. Multiple other medical problems including ischemic cardiomyopathy with ejection fraction of 20% with an AICD and patient is not in acute exacerbation. Patient will be continued on his diuretics except for Aldactone for above mentioned reasons although patient will benefit down the line on Aldactone and lisinopril, probably these need to be started as an outpatient. 7. Hypertension. 8. History of myocardial infarction in the past. Patient was recently admitted for [id number] myocardial infarction as per the patient. Patient was transferred to an outside hospital where he underwent cardiac catheterization and stent placement. 9. Gastroesophageal reflux disease. 10. Type 2 diabetes mellitus. 11. Sleep apnea. For above-mentioned chronic medical problems, I will go ahead and continue his home medications and regarding the diabetes mellitus, his blood sugars are elevated because of the systemic steroids which are presently discontinued.
[2016-06-10 14:39] VITALS: BMI 41.9
[2016-06-10] MEDS ORDERED: METOPROLOL TARTRATE 50 MG TAB PO STA (16:11)
[2016-06-10] MEDS ORDERED: PANTOPRAZOLE 40 MG TABLET PO SCH (17:30)
[2016-06-10] MEDS ORDERED: ROSUVASTATIN CALCIUM 40 MG PO SCH (21:00)
[2016-06-10] MEDS ORDERED: ARIPiprazole 10 MG TAB PO SCH (21:00)
[2016-06-10] MEDS ORDERED: RANOLAZINE 500 MG TAB.ER.12H PO SCH (21:00)
--- NOTE | 2016-06-10 22:25 | DS ---
DATE OF ADMISSION: 06/09/2016 DATE OF DISCHARGE: 06/10/2016 Patient is admitted with left-sided facial cellulitis with improved symptoms with vancomycin. Patient is being discharged on clindamycin. Patient is not a candidate for Bactrim because of his elevated potassium and also borderline renal function. Both of these medications were discontinued and I am holding spironolactone as well, which can be re-initiated as an outpatient if his potassium goes down. Patient will be continued on lisinopril, though, and please refer to my dictation of H&P for further details. CHF discharge instructions will be provided. Patient will follow up with Dr. Junie León in 3 to 7 days. Activity as tolerated. Cardiac diet. Patient will follow with Cardiology as scheduled. Please refer to my dictation of H&P for further details of discharge.
[2016-06-11] MEDS ORDERED: VANCOMYCIN TROUGH DUE 1 EACH MISC MISCELLANE ONE (05:00)
[2016-06-11] MEDS ORDERED: SERTRALINE 100 MG TAB PO SCH (09:00)
[2016-06-11] MEDS ORDERED: FUROSEMIDE 40 MG TAB PO SCH (09:00)
[2016-06-15] MEDS ORDERED: NON-FORMULARY DRUG (Dulaglutide [Trulicity] 1.5 MG) SQ SCH (11:02)
== END 2016-06-10 17:16 | disposition home or self-care (01) ==
LOC: EC 20:12 → 5MS5E 21:00
PROVIDERS: ADMIT Internal Medicine; ATTEND Internal Medicine
DX: L03.211 Cellulitis of face (principal); E87.1 Hypo-osmolality and hyponatremia; E87.5 Hyperkalemia; N17.8 Other acute kidney failure; N14.1 Nephropathy induced by other drugs, medicaments and biological substances; E09.40 Drug or chemical induced diabetes mellitus with neurological complications with diabetic neuropathy, unspecified; I25.5 Ischemic cardiomyopathy; I11.0 Hypertensive heart disease with heart failure; I50.9 Heart failure, unspecified; I25.10 Atherosclerotic heart disease of native coronary artery without angina pectoris; K21.9 Gastro-esophageal reflux disease without esophagitis; E78.5 Hyperlipidemia, unspecified; I25.2 Old myocardial infarction; M19.90 Unspecified osteoarthritis, unspecified site; G47.30 Sleep apnea, unspecified; R73.9 Hyperglycemia, unspecified; F41.9 Anxiety disorder, unspecified; F32.9 Major depressive disorder, single episode, unspecified; F43.10 Post-traumatic stress disorder, unspecified; Z95.5 Presence of coronary angioplasty implant and graft; Z99.89 Dependence on other enabling machines and devices; Z95.810 Presence of automatic (implantable) cardiac defibrillator; Z79.899 Other long term (current) drug therapy; Z79.84 Long term (current) use of oral hypoglycemic drugs; Z79.82 Long term (current) use of aspirin; Z88.0 Allergy status to penicillin; Z88.8 Allergy status to other drugs, medicaments and biological substances; Z86.73 Personal history of transient ischemic attack (TIA), and cerebral infarction without residual deficits; Z82.49 Family history of ischemic heart disease and other diseases of the circulatory system; Z82.0 Family history of epilepsy and other diseases of the nervous system; Z83.3 Family history of diabetes mellitus; T50.2X5A Adverse effect of carbonic-anhydrase inhibitors, benzothiadiazides and other diuretics, initial encounter; T38.0X5A Adverse effect of glucocorticoids and synthetic analogues, initial encounter; Y92.9 Unspecified place or not applicable
CPT/HCPCS: 36415; 80053; 80048; 82150; 83036; 83690; 83735; 85025; 85027; 87040; 87070; 87205; 70491; 99284; 96365; 96375 ×4; G0378 ×2; J3370 ×2; J2270 ×2; J1200; J2930 ×2; Q9967; C9113; 72131; 87077; 87186; 96366; 96376

== ENCOUNTER → 2016-06-09 | Outpatient (CLI) | payer MEDICARE, OTHER ==
--- NOTE | 2016-06-09 08:50 | CT ---
EXAMINATION TYPE: CT lumbar spine wo con DATE OF EXAM: 06/09/2016 8:10 AM COMPARISON: Lumbar spine x-ray May 14, 2014. HISTORY: Low back pain CT DLP: 1656.40 mGycm Automated exposure control for dose reduction was used. FINDINGS: There are 5 lumbar type vertebra identified. Lumbar spine demonstrates satisfactory alignment without evidence of acute fracture or dislocation. Vertebral body heights and disc space heights are fairly well-maintained. No large posterior disc herniations are seen on sagittal images. Spinal canal is migue rly well preserved. No significant spurring is present. Axial images show the T12-L1, L1-L2, L2-L3, and L3-L4 levels all to appear within normal limits. Axial images at the L4-L5 level show mild broad based posterior disc protrusion minimally effacing th e anterior thecal sac. Bilateral neural foramina remain patent. Axial images at the L5-S1 level show broad-based posterior disc protrusion on axial image 71. Spinal canal is preserved. Bilateral neural foramina remain patent. Cholecystectomy clips are present. There is some vascular calcification of distal abdominal aorta and iliac branch vessels and tortuous splenic artery noted. IMPRESSION: Some degenerative changes are present in lower lumbar spine as detailed above.
== END | disposition home or self-care (01) ==
LOC: RADCTMAIN 07:44
PROVIDERS: ATTEND Family Medicine
DX: M47.816 Spondylosis without myelopathy or radiculopathy, lumbar region (principal)
CPT/HCPCS: 72131

== ENCOUNTER 2016-06-11 21:14 | Emergency (ER) | payer MEDICARE, OTHER ==
[2016-06-11 23:07] VITALS: BP 161/71; PULSE 68; RESP 16; TEMP 98.2
--- NOTE | 2016-06-11 23:09 | ED ---
General Adult HPI - General Chief complaint: Skin/Abscess/Foreign Body Stated complaint: ear pain-revisit Time Seen by Provider: 06/11/16 22:32 Source: patient, RN notes reviewed Mode of arrival: ambulatory Limitations: no limitations - History of Present Illness Initial comments: Patient is a 40-year-old male who presents emergency room today with a chief complaint of abscess located to the left side of the face. He does admit that he was seen here in the emergency room the other day and started on antibiotics. He states that yesterday it did open started to drain. He states white push and squeeze and got material out. States is doing better today. States came into the was wondering if we needed to open further. Patient denies any other complaints or associated symptoms at this time. Patient denies any recent fever, chills, shortness of breath, chest pain, back pain, abdominal pain, nausea or vomiting, numbness or tingling, dysuria or hematuria, constipation or diarrhea, headaches or visual changes, or any other complaints. - Related Data Home Medications Medication Instructions Recorded Confirmed Nitroglycerin Sl Tabs [Nitrostat] 0.4 mg SUBLINGUAL Q5M PRN 10/13/13 06/11/16 Sertraline HCl [Zoloft] 200 mg PO QAM 10/13/13 06/11/16 Linagliptin [Tradjenta] 5 mg PO HS 10/13/14 06/11/16 Furosemide [Lasix] 40 mg PO DAILY 05/21/15 06/11/16 metFORMIN HCL 1,000 mg PO AC-BID 07/03/15 06/11/16 Omeprazole [PriLOSEC] 40 mg PO AC-SUPPER 08/13/15 06/11/16 Metoclopramide [Reglan] 10 mg PO ACHS 12/25/15 06/11/16 Baclofen [Lioresal] 10 mg PO TID PRN 01/13/16 06/11/16 ARIPiprazole 10 mg PO HS 03/10/16 06/11/16 Dulaglutide [Trulicity] 1.5 mg SQ OROZCO 03/10/16 06/11/16 Glimepiride 4 mg PO AC-BID 03/10/16 06/11/16 Rosuvastatin Calcium 40 mg PO HS 05/05/16 06/11/16 Lisinopril [Zestril] 2.5 mg PO DAILY 06/01/16 06/11/16 Acarbose [Precose] 25 mg PO TID 06/09/16 06/11/16 Gabapentin [Neurontin] 300 mg PO TID 06/09/16 06/11/16 Ranolazine [Ranexa] 1,000 mg PO BID 06/09/16 06/11/16 Previous Rx's Medication Instructions Recorded Prasugrel [Effient] 10 mg PO DAILY #14 tab 06/01/14 Aspirin EC [Ecotrin] 325 mg PO DAILY tablet. 12/08/14 Isosorbide Mononitrate ER [Imdur] 90 mg PO DAILY #120 tab.er.24h 05/28/16 Clindamycin [Cleocin] 300 mg PO Q6H #21 capsule 06/10/16 Metoprolol Tartrate [Lopressor] 50 mg PO BID #60 tab 06/10/16 Mupirocin 2% Oint [Bactroban Oint] 1 applic TOPICAL TID #1 gm 06/11/16 Allergies Allergy/AdvReac Type Severity Reaction Status Date / Time Penicillins Allergy Severe Rash/Hives Verified 06/11/16 21:41 meclizine Allergy Unknown Unknown Verified 06/11/16 21:41 erythromycin base AdvReac Severe Swelling Verified 06/11/16 21:41 [Erythromycin Base] shellfish derived AdvReac Severe Swelling Verified 06/11/16 21:41 cephalexin monohydrate AdvReac Mild Nausea & Verified 06/11/16 21:41 [From Keflex] Vomiting codeine AdvReac Unknown Swelling Verified 06/11/16 21:41 naproxen AdvReac Unknown Unknown Verified 06/11/16 21:41 atorvastatin calcium AdvReac MUSCLE PAIN Verified 06/11/16 21:41 [From Lipitor] Iodinated Contrast Media - AdvReac Unknown Verified 06/11/16 21:41 Oral and bird feces AdvReac Swelling Uncoded 06/11/16 21:41 sea food AdvReac Swelling Uncoded 06/11/16 21:41 Review of Systems ROS Statement: Those systems with pertinent positive or pertinent negative responses have been documented in the HPI. ROS Other: All systems not noted in ROS Statement are negative. Past Medical History Past Medical History: Coronary Artery Disease (CAD), Chest Pain / Angina, Heart Failure, CVA/TIA, Diabetes Mellitus, GERD/Reflux, Hyperlipidemia, Hypertension, Myocardial Infarction (MS), Osteoarthritis (OA), Pneumonia, Sleep Apnea/CPAP/ BIPAP Additional Past Medical History / Comment(s): Coronary artery disease with multiple vessel disease, ischemic cardiomyopathy, diabetic neuropathy, hypertension hypertensive cardiovascular disease, chronic gastritis, chronic back pain, depression with multiple suicide attempts with insulin in the past.GASTROPARESIS, PSORIASES. Last Myocardial Infarction Date:: 12/2014 History of Any Multi-Drug Resistant Organisms: None Reported Past Surgical History: AICD, Appendectomy, Cholecystectomy, Heart Catheterization With Stent, Hernia Repair Additional Past Surgical History / Comment(s): Right orchiectomy, right sided hand surgery in 2001 secondary to an injury.Left heart catheterization and angioplasty with a stent placement of the LAD in 2009 and September 2010. Left heart catheterization February 2013, and August - RCA occlusion treated so farwith aggressive medical management, TEEAdditional Medical Hx: Gastroparesis, 10-23-14 HAD HEART CATH WITH PTBA TO DISTAL CIRC Past Anesthesia/Blood Transfusion Reactions: No Reported Reaction Additional Past Anesthesia/Blood Transfusion Reaction / Comment(s): . Date of Last Stent Placement:: 05/2015 Type of Cardiac Device: AICD Device Placement Date:: 09/19/15 Past Psychological History: Anxiety, Depression, PTSD Additional Psychological History / Comment(s): Several suicide attempts with use of insulin.PT STATED HAS PTSD- IN 2000- HIS 3 MONTH OLD SON IN HIS ARMS (CHILD WAS BORN 2 MONTHS PREMATURE), PT ON DISABILTY MULTIFACTORIAL PER PT. Smoking Status: Never smoker Past Alcohol Use History: Rare Additional Past Alcohol Use History / Comment(s): . He does not drink alcohol or use street drugs. He is currently living with his .PT DENIES HAVING EVER BEEN A SMOKER Past Drug Use History: None Reported Additional Drug Use History / Comment(s): NONE IN 15 YEARS has smoked marijuana - Past Family History Mother Family Medical History: Coronary Artery Disease (CAD), Myocardial Infarction (MS ) Additional Family Medical History / Comment(s): 7 [place] and faulty heart valve Father History Unknown: Yes Additional Family Medical History / Comment(s): Does not know who father is Brother(s) Family Medical History: Congestive Heart Failure (CHF), Myocardial Infarction ( [place]) Additional Family Medical History / Comment(s): Parkinsons Patient has Family Medical History: No Reported History Additional Family Medical History / Comment(s): There is a strong family history for heart disease, hypertension, and diabetes. General Exam - General Exam Comments Initial Comments: General: The patient is awake and alert, in no distress, and does not appear acutely ill. Eye: Pupils are equal, round and reactive to light, extra-ocular movements are intact. No nystagmus. There is normal conjunctiva bilaterally. No signs of icterus. Ears, nose, mouth and throat: There are moist mucous membranes and no oral lesions. Neck: The neck is supple, there is no tenderness or JVD. Cardiovascular: There is a regular rate and rhythm. No murmur, rub or gallop is appreciated. Respiratory: Lungs are clear to auscultation, respirations are non-labored, breath sounds are equal. No wheezes, stridor, rales, or rhonchi. Musculoskeletal: Normal ROM, no tenderness. Strength 5/5. Sensation intact. Pulses equal bilaterally 2+. Neurological: A&O x 3. CN II-XII intact, There are no obvious motor or sensory deficits. Coordination appears grossly intact. Speech is normal. Skin: Ulcerated abscess to the left side of the face just in front of the left ear. Mild redness erythema locally. Mild tenderness. Psychiatric: Cooperative, appropriate mood & affect, normal judgment. Limitations: no limitations Course Vital Signs 06/11/16 06/11/16 21:41 23:03 Temperature 98.5 F 98.2 F Pulse Rate 94 68 Respiratory 18 16 Rate Blood Pressure 133/68 161/71 O2 Sat by Pulse 98 100 Oximetry Medical Decision Making - Medical Decision Making Patient admits that symptoms are improved her symptoms began to drain. Patient is advised to continue warm compresses at this time. Will be given a topical antibiotic as well to use. Advised continue with his previously prescribed antibiotics. Advised return if symptoms increase or worsen. Disposition Clinical Impression: Facial abscess Disposition: HOME SELF-CARE Condition: Good Instructions: Abscess (ED) Additional Instructions: Please continue warm compresses to the area at least 3-4 times daily. Please continue previously prescribed antibiotics. Please use topical antibiotic as prescribed. Please return if symptoms increase or worsen or for any other concerns as discussed. Prescriptions: Mupirocin 2% Oint [Bactroban Oint] 1 applic TOPICAL TID #1 gm Time of Disposition: 23:08
== END 2016-06-11 23:16 | disposition home or self-care (01) ==
LOC: EC 21:14
DX: L02.01 Cutaneous abscess of face (principal); Z79.899 Other long term (current) drug therapy; Z88.0 Allergy status to penicillin; I25.2 Old myocardial infarction; Z86.73 Personal history of transient ischemic attack (TIA), and cerebral infarction without residual deficits; K21.9 Gastro-esophageal reflux disease without esophagitis; I25.10 Atherosclerotic heart disease of native coronary artery without angina pectoris; E78.5 Hyperlipidemia, unspecified; Z91.041 Radiographic dye allergy status; Z88.5 Allergy status to narcotic agent; Z91.013 Allergy to seafood; Z88.8 Allergy status to other drugs, medicaments and biological substances; Z91.09 Other allergy status, other than to drugs and biological substances; Z88.1 Allergy status to other antibiotic agents; Z91.048 Other nonmedicinal substance allergy status; Z79.2 Long term (current) use of antibiotics; Z79.82 Long term (current) use of aspirin; Z79.4 Long term (current) use of insulin; I20.9 Angina pectoris, unspecified; I25.5 Ischemic cardiomyopathy; I11.0 Hypertensive heart disease with heart failure; Z95.5 Presence of coronary angioplasty implant and graft; Z95.810 Presence of automatic (implantable) cardiac defibrillator; E11.40 Type 2 diabetes mellitus with diabetic neuropathy, unspecified; F41.9 Anxiety disorder, unspecified; F32.9 Major depressive disorder, single episode, unspecified
CPT/HCPCS: 99282; 99283

== ENCOUNTER 2016-06-20 00:28 | Inpatient (IN) | payer MEDICARE, OTHER ==
[2016-06-20] MEDS ORDERED: SODIUM CHLORIDE 0.9% 1,000 ML IV STA (00:48)
--- NOTE | 2016-06-20 01:09 | ED ---
General Adult HPI - General Chief complaint: Extremity Problem,Nontraumatic Stated complaint: R Side Jaw Pain/General Not feeling well Time Seen by Provider: 06/20/16 00:41 Source: patient, RN notes reviewed Mode of arrival: ambulatory Limitations: no limitations - History of Present Illness Initial comments: Patient is a 40-year-old male who presents emergency room today with a chief complaint of "pressure" to the right side. It is a pressure-like feeling to both the right upper and lower extremity. He does admit that he had a mini stroke several years ago. He states this feels similar. He states she's not noticed any decreased strength on the side. States he just feels a "heaviness" . He states he noticed proximate hour ago that he began having a sharp type pain to the right side of his face patient also admits to headache located in the front that he describes as achy. Currently rates as 11/01. Patient denies any other complains associated symptoms. Patient denies any recent fever, chills , shortness of breath, chest pain, back pain, abdominal pain, nausea or vomiting , dysuria or hematuria, constipation or diarrhea, visual changes, or any other complaints. - Related Data Home Medications Medication Instructions Recorded Confirmed Nitroglycerin Sl Tabs [Nitrostat] 0.4 mg SUBLINGUAL Q5M PRN 10/13/13 06/20/16 Sertraline HCl [Zoloft] 200 mg PO QAM 10/13/13 06/20/16 Linagliptin [Tradjenta] 5 mg PO HS 10/13/14 06/20/16 Furosemide [Lasix] 40 mg PO DAILY 05/21/15 06/20/16 metFORMIN HCL 1,000 mg PO AC-BID 07/03/15 06/20/16 Omeprazole [PriLOSEC] 40 mg PO AC-SUPPER 08/13/15 06/20/16 Metoclopramide [Reglan] 10 mg PO ACHS 12/25/15 06/20/16 Baclofen [Lioresal] 10 mg PO TID PRN 01/13/16 06/20/16 ARIPiprazole 10 mg PO HS 03/10/16 06/20/16 Dulaglutide [Trulicity] 1.5 mg SQ OROZCO 03/10/16 06/20/16 Glimepiride 4 mg PO AC-BID 03/10/16 06/20/16 Rosuvastatin Calcium 40 mg PO HS 05/05/16 06/20/16 Lisinopril [Zestril] 2.5 mg PO DAILY 06/01/16 06/20/16 Acarbose [Precose] 25 mg PO TID 06/09/16 06/20/16 Gabapentin [Neurontin] 300 mg PO TID 06/09/16 06/20/16 Ranolazine [Ranexa] 1,000 mg PO BID 06/09/16 06/20/16 Previous Rx's Medication Instructions Recorded Prasugrel [Effient] 10 mg PO DAILY #14 tab 06/01/14 Aspirin EC [Ecotrin] 325 mg PO DAILY tablet. 12/08/14 Isosorbide Mononitrate ER [Imdur] 90 mg PO DAILY #120 tab.er.24h 05/28/16 Metoprolol Tartrate [Lopressor] 50 mg PO BID #60 tab 06/10/16 Mupirocin 2% Oint [Bactroban Oint] 1 applic TOPICAL TID #1 gm 06/11/16 Allergies Allergy/AdvReac Type Severity Reaction Status Date / Time Penicillins Allergy Severe Rash/Hives Verified 06/20/16 00:38 meclizine Allergy Unknown Unknown Verified 06/20/16 00:38 erythromycin base AdvReac Severe Swelling Verified 06/20/16 00:38 [Erythromycin Base] shellfish derived AdvReac Severe Swelling Verified 06/20/16 00:38 cephalexin monohydrate AdvReac Mild Nausea & Verified 06/20/16 00:38 [From Keflex] Vomiting codeine AdvReac Unknown Swelling Verified 06/20/16 00:38 naproxen AdvReac Unknown Unknown Verified 06/20/16 00:38 atorvastatin calcium AdvReac MUSCLE PAIN Verified 06/20/16 00:38 [From Lipitor] Iodinated Contrast Media - AdvReac Unknown Verified 06/20/16 00:38 Oral and bird feces AdvReac Swelling Uncoded 06/20/16 00:38 sea food AdvReac Swelling Uncoded 06/20/16 00:38 Review of Systems ROS Statement: Those systems with pertinent positive or pertinent negative responses have been documented in the HPI. ROS Other: All systems not noted in ROS Statement are negative. Past Medical History Past Medical History: Coronary Artery Disease (CAD), Chest Pain / Angina, Heart Failure, CVA/TIA, Diabetes Mellitus, GERD/Reflux, Hyperlipidemia, Hypertension, Myocardial Infarction (SC), Osteoarthritis (OA), Pneumonia, Sleep Apnea/CPAP/ BIPAP Additional Past Medical History / Comment(s): Coronary artery disease with multiple vessel disease, ischemic cardiomyopathy, diabetic neuropathy, hypertension hypertensive cardiovascular disease, chronic gastritis, chronic back pain, depression with multiple suicide attempts with insulin in the past.GASTROPARESIS, PSORIASES. Last Myocardial Infarction Date:: 12/2014 History of Any Multi-Drug Resistant Organisms: None Reported Past Surgical History: AICD, Appendectomy, Cholecystectomy, Heart Catheterization With Stent, Hernia Repair Additional Past Surgical History / Comment(s): Right orchiectomy, right sided hand surgery in 2001 secondary to an injury.Left heart catheterization and angioplasty with a stent placement of the LAD in 2009 and September 2010. Left heart catheterization February 2013, and August - RCA occlusion treated so far with aggressive medical management, TEEAdditional Medical Hx: Gastroparesis, 10-23- HAD HEART CATH WITH PTBA TO DISTAL CIRC Past Anesthesia/Blood Transfusion Reactions: No Reported Reaction Additional Past Anesthesia/Blood Transfusion Reaction / Comment(s): . Date of Last Stent Placement:: 05/2015 Type of Cardiac Device: AICD Device Placement Date:: 09/19/15 Past Psychological History: Anxiety, Depression, PTSD Additional Psychological History / Comment(s): Several suicide attempts with use of insulin.PT STATED HAS PTSD- IN 2000- HIS 3 MONTH OLD SON IN HIS ARMS (CHILD WAS BORN 2 MONTHS PREMATURE), PT ON DISABILTY MULTIFACTORIAL PER PT. Smoking Status: Never smoker Past Alcohol Use History: Rare Additional Past Alcohol Use History / Comment(s): . He does not drink alcohol or use street drugs. He is currently living with his .PT DENIES HAVING EVER BEEN A SMOKER Past Drug Use History: None Reported Additional Drug Use History / Comment(s): NONE IN 15 YEARS has smoked marijuana - Past Family History Mother Family Medical History: Coronary Artery Disease (CAD), Myocardial Infarction (SC ) Additional Family Medical History / Comment(s): 7 [place] and faulty heart valve Father History Unknown: Yes Additional Family Medical History / Comment(s): Does not know who father is Brother(s) Family Medical History: Congestive Heart Failure (CHF), Myocardial Infarction ( [place]) Additional Family Medical History / Comment(s): Parkinsons Patient has Family Medical History: No Reported History Additional Family Medical History / Comment(s): There is a strong family history for heart disease, hypertension, and diabetes. General Exam - General Exam Comments Initial Comments: General: The patient is awake and alert, in no distress, and does not appear acutely ill. Eye: Pupils are equal, round and reactive to light, extra-ocular movements are intact. No nystagmus. There is normal conjunctiva bilaterally. No signs of icterus. Ears, nose, mouth and throat: There are moist mucous membranes and no oral lesions. Neck: The neck is supple, there is no tenderness or JVD. Cardiovascular: There is a regular rate and rhythm. No murmur, rub or gallop is appreciated. Respiratory: Lungs are clear to auscultation, respirations are non-labored, breath sounds are equal. No wheezes, stridor, rales, or rhonchi. Gastrointestinal: Soft, non-distended, non-tender abdomen without masses or organomegaly noted. There is no rebound or guarding present. No CVA tenderness. Bowel sounds are unremarkable. Musculoskeletal: Normal ROM, no tenderness. Strength 5/5. Sensation intact. Pulses equal bilaterally 2+. Neurological: A&O x 3. CN II-XII intact, There are no obvious motor or sensory deficits. Coordination appears grossly intact. Speech is normal. 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 (Patient states this is chronic) Skin: Skin is warm and dry and no rashes or lesions are noted. Psychiatric: Cooperative, appropriate mood & affect, normal judgment. Limitations: no limitations Course Vital Signs 06/20/16 00:34 Temperature 97.5 F L Pulse Rate 107 H Respiratory 18 Rate Blood Pressure 130/78 O2 Sat by Pulse 98 Oximetry EKG Findings - EKG Comments: EKG Findings:: EKG performed at 057: Shows sinus tachycardia 102 bpm. PA interval 176. QRS 86. QT/QTC 332/432. No acute ST changes. Medical Decision Making - Medical Decision Making Patient reexamined at this time shows no signs of stress. Currently sleeping in the stretcher. States still having some headache pain and requesting pain medicine. Was given Tylenol with no relief. Patient does have history of a TIA and CAD. Patient admits to pressure to the right upper and lower extremity' s. Strength mildly decreased which she states is consistent after previous "mini stroke" in the past. Patient's CT is negative for any acute findings. Patient will be admitted to the hospital with neural consult and frequent neuro checks. - Lab Data Result diagrams: 06/20/16 01:20 06/20/16 01:20 Lab Results 06/20/16 06/20/16 06/20/16 Range/Units 01:20 01:20 01:20 WBC 5.8 (3.8-10.6) k/uL RBC 4.12 L (4.30-5.90) m/uL Hgb 11.0 L (13.0-17.5) gm/dL Hct 32.9 L (39.0-53.0) % MCV 79.8 L D (80.0-100.0) fL MCH 26.7 (25.0-35.0) pg MCHC 33.5 (31.0-37.0) g/dL RDW 14.8 (11.5-15.5) % Plt Count 261 (150-450) k/uL Neutrophils % 60 % Lymphocytes % 29 % Monocytes % 6 % Eosinophils % 3 % Basophils % 1 % Neutrophils # 3.5 (1.3-7.7) k/uL Lymphocytes # 1.7 (1.0-4.8) k/uL Monocytes # 0.4 (0-1.0) k/uL Eosinophils # 0.2 (0-0.7) k/uL Basophils # 0.0 (0-0.2) k/uL PT (9.0-12.0) sec INR (<1.1) APTT (22.0-30.0) sec Sodium 134 L (137-145) mmol/L Potassium 4.9 (3.5-5.1) mmol/L Chloride 100 (98-107) mmol/L Carbon Dioxide 23 (22-30) mmol/L Anion Gap 11 mmol/L BUN 22 H (9-20) mg/dL Creatinine 1.20 (0.66-1.25) mg/dL Est GFR (MDRD) Af Amer >60 (>60 ml/min/1.73 sqM) Est GFR (MDRD) Non-Af >60 (>60 ml/min/1.73 sqM) Glucose 224 H (74-99) mg/dL Calcium 9.1 (8.4-10.2) mg/dL Total Bilirubin 0.4 (0.2-1.3) mg/dL AST 16 L (17-59) U/L ALT 38 (21-72) U/L Alkaline Phosphatase 111 (38-126) U/L Total Creatine Kinase 74 (55-170) U/L CK-MB (CK-2) 2.1 (0.0-2.4) ng/mL CK-MB (CK-2) Rel Index 2.8 Troponin I 0.013 (0.000-0.034) ng/mL Total Protein 6.2 L (6.3-8.2) g/dL Albumin 3.6 (3.5-5.0) g/dL 06/20/16 Range/Units 01:20 WBC (3.8-10.6) k/uL RBC (4.30-5.90) m/uL Hgb (13.0-17.5) gm/dL Hct (39.0-53.0) % MCV (80.0-100.0) fL MCH (25.0-35.0) pg MCHC (31.0-37.0) g/dL RDW (11.5-15.5) % Plt Count (150-450) k/uL Neutrophils % % Lymphocytes % % Monocytes % % Eosinophils % % Basophils % % Neutrophils # (1.3-7.7) k/uL Lymphocytes # (1.0-4.8) k/uL Monocytes # (0-1.0) k/uL Eosinophils # (0-0.7) k/uL Basophils # (0-0.2) k/uL PT 10.7 (9.0-12.0) sec INR 1.1 (<1.1) APTT 21.4 L (22.0-30.0) sec Sodium (137-145) mmol/L Potassium (3.5-5.1) mmol/L Chloride (98-107) mmol/L Carbon Dioxide (22-30) mmol/L Anion Gap mmol/L BUN (9-20) mg/dL Creatinine (0.66-1.25) mg/dL Est GFR (MDRD) Af Amer (>60 ml/min/1.73 sqM) Est GFR (MDRD) Non-Af (>60 ml/min/1.73 sqM) Glucose (74-99) mg/dL Calcium (8.4-10.2) mg/dL Total Bilirubin (0.2-1.3) mg/dL AST (17-59) U/L ALT (21-72) U/L Alkaline Phosphatase (38-126) U/L Total Creatine Kinase (55-170) U/L CK-MB (CK-2) (0.0-2.4) ng/mL CK-MB (CK-2) Rel Index Troponin I (0.000-0.034) ng/mL Total Protein (6.3-8.2) g/dL Albumin (3.5-5.0) g/dL Disposition Clinical Impression: CVA (cerebral vascular accident) Disposition: ADMITTED IP TO THIS HOSP Condition: Stable Referrals: Junie New MD [Primary Care Provider] - 1-2 days Time of Disposition: 02:48
[2016-06-20 01:36] LABS: Basophils % (A) 1 %; CH 26.9; CHCM 33.9; Eosinophils # (A) 0.2 k/uL (0-0.7); Eosinophils % (A) 3 %; HCT 32.9 % (39.0-53.0); HDW 3.14; Luc # (Auto) 0.08; Luc % (Auto) 2; Lymphocytes # (A) 1.7 k/uL (1.0-4.8); Lymphocytes % (A) 29 %; MCH 26.7 pg (25.0-35.0); MCHC 33.5 g/dL (31.0-37.0); Mean Platelet Volume 8.2; Monocytes # (A) 0.4 k/uL (0-1.0); Monocytes % (A) 6 %; Neutrophils # (A) 3.5 k/uL (1.3-7.7); Neutrophils % (A) 60 %; RBC 4.12 m/uL (4.30-5.90); RDW 14.8 % (11.5-15.5); WBC 5.8 k/uL (3.8-10.6); WBC (Perox) 6.02
--- NOTE | 2016-06-20 01:39 | CT ---
EXAMINATION TYPE: CT brain wo con DATE OF EXAM: 06/20/2016 1:32 AM COMPARISON: 05/06/2016 HISTORY: Right sided facial pain and numbness. CT DLP: 1068.20 mGycm Automated exposure control for dose reduction was used. FINDINGS: There is some cerebral cortical atrophy for the patient's age. There is no mass effect or midline uriel ft. There is no sign of intracranial hemorrhage. Calvarium is intact. IMPRESSION: There is cerebral atrophy that is noticeable for the patient's age. No acute intracranial abnormality . No change.
[2016-06-20] MEDS ORDERED: ACETAMINOPHEN IV (For NPO) 1,000 MG in SALINE 100 100ML.BAG IVPB STA (01:44)
[2016-06-20 01:47] LABS: ALT 38 U/L (21-72); AST 16 U/L (17-59); Alkaline Phosphatase 111 U/L (38-126); Anion Gap 11 mmol/L; Blood Urea Nitrogen 22 mg/dL (9-20); Calcium 9.1 mg/dL (8.4-10.2); Carbon Dioxide 23 mmol/L (22-30); Chloride 100 mmol/L (98-107); Glucose 224 mg/dL (74-99); Non-African American GFR(MDRD) >60 (>60 ml/min/1.73 sqM); Potassium 4.9 mmol/L (3.5-5.1); Sodium 134 mmol/L (137-145); Total Bilirubin 0.4 mg/dL (0.2-1.3); Total Protein 6.2 g/dL (6.3-8.2)
[2016-06-20 02:12] LABS: Creatine Kinase MB 2.1 ng/mL (0.0-2.4); Troponin I 0.013 ng/mL (0.000-0.034)
[2016-06-20 02:19] LABS: INR 1.1 (<1.1); Prothrombin Time 10.7 sec (9.0-12.0)
[2016-06-20 02:26] LABS: Partial Thromboplastin Time 21.4 sec (22.0-30.0)
[2016-06-20 02:28] LABS: MCV 79.8 fL (80.0-100.0)
[2016-06-20] MEDS ORDERED: MORPHINE SULFATE 4 MG/ML SYRINGE IV STA (02:47)
[2016-06-20] MEDS ORDERED: ASPIRIN 325 MG TAB PO STA (02:49)
[2016-06-20] MEDS ORDERED: SODIUM CHLORIDE 0.9% 1,000 ML IV ONE (02:49)
[2016-06-20 07:07] LABS: CH 26.7; CHCM 32.1; HCT 32.9 % (39.0-53.0); HDW 3.02; HGB 10.8 gm/dL (13.0-17.5); Hypochromasia Slight; MCH 27.3 pg (25.0-35.0); MCHC 32.7 g/dL (31.0-37.0); MCV 83.5 fL (80.0-100.0); Mean Platelet Volume 7.4; RBC 3.94 m/uL (4.30-5.90); RDW 14.9 % (11.5-15.5); WBC 6.2 k/uL (3.8-10.6)
[2016-06-20 07:23] LABS: ALT 39 U/L (21-72); AST 16 U/L (17-59); Alkaline Phosphatase 95 U/L (38-126); Anion Gap 11 mmol/L; Blood Urea Nitrogen 21 mg/dL (9-20); Calcium 8.7 mg/dL (8.4-10.2); Carbon Dioxide 20 mmol/L (22-30); Chloride 104 mmol/L (98-107); Glucose 138 mg/dL (74-99); Non-African American GFR(MDRD) >60 (>60 ml/min/1.73 sqM); Potassium 4.7 mmol/L (3.5-5.1); Sodium 135 mmol/L (137-145); Total Bilirubin 0.4 mg/dL (0.2-1.3); Total Protein 5.8 g/dL (6.3-8.2)
--- NOTE | 2016-06-20 10:12 | US ---
EXAMINATION TYPE: US carotid duplex BILAT DATE OF EXAM: 06/20/2016 10:02 AM COMPARISON: NONE CLINICAL HISTORY: 40-year-old male with right-sided jaw pain, evaluate for stenosis. TECHNIQUE: Carotid duplex ultrasound. Indirect Doppler criteria was utilized. FINDINGS: TECHNOLOGIST NOTE:patient snoring throughout exam, could not keep awake Burgos scale images show mild to moderate atherosclerotic change at the bifurcations. EXAM MEASUREMENTS: RIGHT: Peak Systolic Velocity (PSV) cm/sec ----- Right CCA: 76.4 ----- Right ICA: 92.1 ----- Right ECA: 152.3 ICA/CCA ratio: 1.2 RIGHT: End Diastole cm/sec ----- Right CCA: 17.7 ----- Right ICA: 47.7 ----- Right ECA: 18.3 LEFT: Peak Systolic Velocity (PSV) cm/sec ----- Left CCA: 85.3 ----- Left ICA: 77.9 ----- Left ECA: 120.5 ICA/CCA ratio: 0.9 LEFT: End Diastole cm/sec ----- Left CCA: 26.0 ----- Left ICA: 25.6 ----- Left ECA: 23.8 VERTEBRALS (direction of flow): Right Vertebral: Antegrade Left Vertebral: Antegrade IMPRESSION: No hemodynamically significant stenosis appreciated in either internal carotid artery. Criteria for Assigning % of Stenosis / Diameter reduction (Estimation based on the indirect measurements of the internal carotid artery velocities (ICA PSV). 1. Normal (no stenosis)=ICA PSV < 125 cm/s: ratio < 2.0: ICA EDV<40 cm/s. 2. Less than 50% stenosis=ICA PSV < 125 cm/s: ratio < 2.0: ICA EDV<40 cm/s. 3. 50 to 69% stenosis=ICA PSV of 125 to 230 cm/s: ration 2.0 ? 4.0: ICA EDV 40-100 cm/s. 4. Greater than 70% stenosis to near occlusion= ICA PSV > 230 cm/s: ratio > 4.0: ICA EDV > 100 cm/s. 5. Near occlusion= ICA PSV velocities may be low or undetectable: variable ratio and ICA EDV. 6. Total occlusion=unable to detect flow.
[2016-06-20] MEDS ORDERED: NITROGLYCERIN SL TABS 0.4 MG TAB SUBLINGUAL PRN (12:53)
--- NOTE | 2016-06-20 14:00 | HP ---
DATE OF ADMISSION: 06/20/2016 PRESENTING COMPLAINT: Right facial pain. HISTORY OF PRESENTING COMPLAINT: This is 40-year-old patient of Dr. Jnuie New with rather extensive medical history. Patient's chronic stable medical conditions include congestive heart failure, coronary artery disease, diabetes mellitus type 2, GERD, hypertension, hiatal hernia, AICD. The patient follows with Dr. Junie New. Patient presented with pain on the right side of the face and headache. No change in speech. No change in vision, right shoulder pain. The patient has got some chronic weakness on the right side. That is nothing new. Patient was in the hospital about 10 days ago with left-sided facial cellulitis discharged on clindamycin but since has recovered. REVIEW OF SYSTEMS: CONSTITUTIONAL: None. HEENT: As above. RESPIRATORY: None. CARDIOVASCULAR: None. GASTROINTESTINAL: Heartburn. GENITOURINARY: None. MUSCULOSKELETAL: Chronic low back pain. Dermatological: None. HEMATOLOGICAL: None. LYMPHATIC: None. PSYCHIATRY: Some anxiety, depression. NEUROLOGICAL: None. Past medical history of coronary artery disease, stroke, diabetes mellitus type 2, GERD, hyperlipidemia, hypertension, osteoarthritis, sleep apnea, ischemic cardiomyopathy, EF 40% to 45%, peripheral neuropathy, depression and suicidal in the past and gastroparesis. PAST SURGICAL HISTORY: Appendectomy, cholecystectomy, cardiac cath with stent, right orchiectomy. SOCIAL HISTORY: . No smoking. Did do alcohol in the past. Past psych history: Anxiety, depression, posttraumatic stress disorder. ALLERGIES: PENICILLIN. MECLIZINE, ERYTHROMYCIN, SHELLFISH, KEFLEX, CODEINE, NAPROXEN, LIPITOR, SEAFOOD. Family history of coronary artery disease. HOME MEDICATIONS: 1. Metformin 1000 mg p.o. b.i.d. 2. Zoloft 200 mg p.o. daily. 3. Simvastatin 40 mg q.h.s. 4. Ranexa 1000 mg p.o. b.i.d. 5. Effient 10 mg p.o. daily. 6. Prilosec 40 mg p.o. with supper. 7. Nitrostat 0.4 sublingual q.5 p.r.n. 8. Bactroban ointment 2% topical t.i.d. 9. Lopressor 50 mg p.o. b.i.d. 10. Reglan 10 mg p.o. a.c. at bedtime. 11. Zestril 2.5 p.o. daily. 12. Tradjenta 5 mg p.o. q.h.s. 13. Imdur ER 90 mg p.o. daily. 14. Glimepiride 4 mg p.o. a.c. b.i.d. 15. Neurontin 300 mg p.o. t.i.d. 16. Lasix 40 mg p.o. daily. 17. Trulicity 1.5 mg subcu on Thursday. 18. Baclofen 10 mg p.o. t.i.d. p.r.n. 19. Aspirin 325 p.o. daily. 20. Precose 25 mg p.o. t.i.d. 21. ( )10 mg p.o. q.h.s. On examination, vital signs on presentation: Temperature 97.5, pulse 107, respiration 18, blood pressure 130/78, pulse ox 98% on room air. GENERAL APPEARANCE: Well built, BMI of 42.0, lying in bed comfortable, in fact the patient sleeping when I walked in. EYES: Pupils equal. Conjunctivae normal. HEENT: External appearance of nose and ears normal. Oral cavity normal. NECK: JVD not raised. Mass not palpable. RESPIRATORY: Effort normal. Lungs are clear. CARDIOVASCULAR: First and second sounds normal. No edema. ABDOMEN: Soft, nontender. Liver and spleen not palpable. LYMPHATIC: No lymph nodes palpable in the neck and axilla. PSYCHIATRY: Alert and oriented times three. Mood and affect slightly ( ). MUSCULOSKELETAL: Power and sensation grossly intact. NEUROLOGICAL: Pupils equal. No facial symmetry. Power and sensation grossly intact. Some weakness on the right side, which is chronically present, weakness 4/5, which is not new. INVESTIGATIONS: White count 5.8, hemoglobin 11, potassium 4.9, BUN 22, creatinine 1.2. CT scan of the brain shows some ( ) cortical atrophy. Nil acute. Carotid doppler ( ) stenosis. ASSESSMENT: 1. This patient presented with pain on the right side of the face. This could be cervical spine neuropathic referred pain. Or it could be in the trigeminal distribution since the pain is present right from the forehead right after the shoulder, it could be multilevel cervical spine. This is not a presentation of stroke at this point, but needs to rule out the same. 2. Automatic implantable cardioverter defibrillator chronic. 3. Chronic congestive heart failure from systolic dysfunction ejection fraction 40 to 45%, underlying coronary artery disease. 4. Coronary artery disease with prior history of stent. 5. Diabetes mellitus type 2, chronically on insulin. 6. Gastroesophageal reflux disease. 7. Hyperlipidemia. 8. Essential hypertension. 9. Chronic sleep apnea. 10. Diabetes mellitus type 2 causing peripheral neuropathy. 11. Chronic gastritis. 12. Depression. 13. Left bundle branch block history of. 14. Primary osteoarthritis of multiple joints bilaterally. 15. Obesity, body mass index greater than 40. PLAN: Home medications will be resumed. ( ) is consulted. Highly doubt this is a stroke. We will do cervical spine x-ray. Could be referred neuropathic pain. Care was discussed with the patient. Lovenox for DVT prophylaxis.
--- NOTE | 2016-06-20 14:04 | XR ---
EXAMINATION TYPE: XR cervical spine limited DATE OF EXAM: 06/20/2016 1:41 PM COMPARISON: NONE HISTORY: 40-year-old male with facial/shoulder pain, possible radiculopathy TECHNIQUE: 4 views FINDINGS: The predental space widening or prevertebral soft tissue swelling. There is normal alignment of the c ervical spine. Minimal uncovertebral joint spurring is noted in the mid cervical spine and some mild facet arthropathy and upper cervical spine. Odontoid view is normal. IMPRESSION: Very mild scattered spondylotic change. No prevertebral soft tissue swelling or malalignment.
[2016-06-20] MEDS: ACETAMINOPHEN TAB 325 MG TAB PO PRN ×2 (14:39→20:13)
[2016-06-20] MEDS: ENOXAPARIN 40 MG/0.4 ML SYRINGE SQ SCH (15:25)
[2016-06-20] MEDS: SERTRALINE 100 MG TAB PO SCH (15:26)
[2016-06-20] MEDS: ACARBOSE 25 MG TAB PO SCH ×2 (15:26→22:19)
[2016-06-20] MEDS: GABAPENTIN 300 MG CAP PO SCH ×2 (15:26→22:23)
[2016-06-20] MEDS: METOPROLOL TARTRATE 50 MG TAB PO SCH ×2 (15:26→22:22)
[2016-06-20] MEDS: PRASUGREL 10 MG TAB PO SCH (15:26)
[2016-06-20] MEDS: metFORMIN 500 MG TAB PO SCH ×2 (15:27→22:20)
[2016-06-20] MEDS: RANOLAZINE 500 MG TAB.ER.12H PO SCH ×2 (15:28→22:23)
[2016-06-20] MEDS: FUROSEMIDE 40 MG TAB PO SCH (15:28)
[2016-06-20] MEDS: BACLOFEN 10 MG TAB PO PRN ×2 (15:28→22:23)
[2016-06-20] MEDS: LISINOPRIL 2.5 MG TAB PO SCH (15:28)
[2016-06-20] MEDS ORDERED: PANTOPRAZOLE 40 MG TABLET PO SCH (17:30)
--- NOTE | 2016-06-20 18:52 | CT ---
EXAMINATION TYPE: CT brain wo con DATE OF EXAM: 06/20/2016 6:43 PM COMPARISON: Today HISTORY: Pt states of WADE. CT DLP: 976.0 mGycm Automated exposure control for dose reduction was used. FINDINGS: There is some cerebral cortical atrophy for the patient's age. There is no mass effect nor midline sh ift. There is no sign of intracranial hemorrhage. Calvarium is intact. IMPRESSION: There is noticeable cerebral atrophy for the patient's age. No acute intracranial abnormality. No zeina nge.
[2016-06-20] MEDS: ISOSORBIDE MONONITRATE ER 30 MG TAB.ER.24H PO SCH (20:10)
[2016-06-20] MEDS: ASPIRIN 325 MG TAB PO SCH (20:10)
[2016-06-20] MEDS ORDERED: ROSUVASTATIN CALCIUM 40 MG PO SCH (21:00)
[2016-06-20] MEDS ORDERED: LINAGLIPTIN 5 MG TABLET PO SCH (21:00)
[2016-06-20] MEDS ORDERED: ARIPiprazole 10 MG TAB PO SCH (21:00)
[2016-06-20 21:17] LABS: Glucose,Whole Blood 167 mg/dL (75-99)
[2016-06-20] MEDS: GLIMEPIRIDE 4 MG TAB PO SCH (22:20)
[2016-06-20] MEDS: MUPIROCIN 2% OINT 22 GM TUBE TOPICAL SCH (22:36)
[2016-06-20] MEDS: METOCLOPRAMIDE 10 MG TAB PO SCH ×2 (22:36→22:37)
--- NOTE | 2016-06-20 23:18 | P.CNNES ---
History of Present Illness Consult date: 06/20/16 Requesting physician: Frederick Garcia Reason for Consult: CVA Chief complaint: facial numbness and pain History of Present Illness: Patient is a 40-year-old male presents to the ED with a chief complaint of pressure to the right side of his face. Patient is being requested to be consulted on by neurology for possible CVA. Patient stated he did have a pressure like sensation about the right upper and lower extremity. Patient does have a history of TIA several years ago. Pain is described as sharp, right -sided facial pain with associated headache. Patient does state over the last couple weeks he has been having difficulty with "expressing what he wants to say." He states that he knows the words that he wants to say but cannot say them or they come out inaccurate when speaking. Patient rated his pain as 6 out of 10. He denied fever, chills, shortness of breath, chest pain back pain, abdominal pain nausea or vomiting, dysuria hematuria, constipation diarrhea, visual changes or other complaints. On contact, the patient was resting on a stretcher in the ED, spouse was present at bedside. Patient was in no acute distress. Review of Systems any systems not noted in HPI are negative. Past Medical History Past Medical History: Coronary Artery Disease (CAD), Chest Pain / Angina, Heart Failure, CVA/TIA, Diabetes Mellitus, GERD/Reflux, Hyperlipidemia, Hypertension, Myocardial Infarction (IN), Osteoarthritis (OA), Pneumonia, Skin Disorder, Sleep Apnea/CPAP/BIPAP Additional Past Medical History / Comment(s): Pt was admitted to [facility] recently on 06/09/16 with L facial cellulitis which is nearly healed. Other HX: Coronary artery disease with multiple vessel disease, ischemic cardiomyopathy, diabetic neuropathy bilateral hands and feet, hypertension hypertensive cardiovascular disease, chronic gastritis, chronic back pain, depression with multiple suicide attempts with insulin in the past.GASTROPARESIS, PSORIASES, SHELIA refuses CPAP, NIDDM type II. Last Myocardial Infarction Date:: 06/03/16 per pt. 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 Past Anesthesia/Blood Transfusion Reactions: No Reported Reaction Additional Past Anesthesia/Blood Transfusion Reaction / Comment(s): . Date of Last Stent Placement:: 06/03/16 Type of Cardiac Device: AICD Device Placement Date:: 09/19/15 Past Psychological History: Anxiety, Depression, PTSD Additional Psychological History / Comment(s): Several suicide attempts with use of insulin. PT STATED HAS PTSD- IN 2000- HIS 3 MONTH OLD SON IN HIS ARMS(CHILD WAS BORN 2 MONTHS PREMATURE). Pt states his depression is stable at this time and does not have any suicidal thoughts or plans. Pt lives with his spouse and 2 stepchildren. He is independent. PT ON DISABILTY MULTIFACTORIAL PER PT. Smoking Status: Never smoker Past Alcohol Use History: Rare Additional Past Alcohol Use History / Comment(s): . He does not drink alcohol or use street drugs. He is currently living with his .PT DENIES HAVING EVER BEEN A SMOKER Past Drug Use History: Marijuana Additional Drug Use History / Comment(s): NONE IN 15 YEARS has smoked marijuana - Past Family History Mother Family Medical History: Coronary Artery Disease (CAD), Myocardial Infarction (IN ) Additional Family Medical History / Comment(s): 7 [place] and faulty heart valve. Pt does not know the age when mother had her MIs. Father History Unknown: Yes Additional Family Medical History / Comment(s): Does not know who father is Brother(s) Family Medical History: Congestive Heart Failure (CHF), Myocardial Infarction ( [place]) Additional Family Medical History / Comment(s): Parkinsons. Pt does not know at what age his brother had a IN Patient has Family Medical History: No Reported History Additional Family Medical History / Comment(s): There is a strong family history for heart disease, hypertension, and diabetes. Medications and Allergies Home Medications Medication Instructions Recorded Confirmed Type Nitroglycerin Sl Tabs [Nitrostat] 0.4 mg SUBLINGUAL Q5M PRN 10/13/13 06/20/16 History Sertraline HCl [Zoloft] 200 mg PO QAM 10/13/13 06/20/16 History Linagliptin [Tradjenta] 5 mg PO HS 10/13/14 06/20/16 History Furosemide [Lasix] 40 mg PO DAILY 05/21/15 06/20/16 History metFORMIN HCL 1,000 mg PO AC-BID 07/03/15 06/20/16 History Omeprazole [PriLOSEC] 40 mg PO AC-SUPPER 08/13/15 06/20/16 History Metoclopramide [Reglan] 10 mg PO ACHS 12/25/15 06/20/16 History Baclofen [Lioresal] 10 mg PO TID PRN 01/13/16 06/20/16 History ARIPiprazole 10 mg PO HS 03/10/16 06/20/16 History Dulaglutide [Trulicity] 1.5 mg SQ OROZCO 03/10/16 06/20/16 History Glimepiride 4 mg PO AC-BID 03/10/16 06/20/16 History Rosuvastatin Calcium 40 mg PO HS 05/05/16 06/20/16 History Lisinopril [Zestril] 2.5 mg PO DAILY 06/01/16 06/20/16 History Acarbose [Precose] 25 mg PO TID 06/09/16 06/20/16 History Gabapentin [Neurontin] 300 mg PO TID 06/09/16 06/20/16 History Ranolazine [Ranexa] 1,000 mg PO BID 06/09/16 06/20/16 History Allergies Allergy/AdvReac Type Severity Reaction Status Date / Time Penicillins Allergy Severe Rash/Hives Verified 06/20/16 07:30 meclizine Allergy Unknown Unknown Verified 06/20/16 07:30 erythromycin base AdvReac Severe Swelling Verified 06/20/16 07:30 [Erythromycin Base] shellfish derived AdvReac Severe Swelling Verified 06/20/16 07:30 cephalexin monohydrate AdvReac Mild Nausea & Verified 06/20/16 07:30 [From Keflex] Vomiting codeine AdvReac Unknown Swelling Verified 06/20/16 07:30 naproxen AdvReac Unknown Unknown Verified 06/20/16 07:30 atorvastatin calcium AdvReac MUSCLE PAIN Verified 06/20/16 07:30 [From Lipitor] Iodinated Contrast Media - AdvReac Unknown Verified 06/20/16 07:30 Oral and bird feces AdvReac Swelling Uncoded 06/20/16 00:38 sea food AdvReac Swelling Uncoded 06/20/16 00:38 Physical Examination - Vital Signs Vital Signs: Vital Signs Temp Pulse Pulse Resp BP BP Pulse Ox 06/20/16 16:33 97.0 F L 74 20 136/83 92 L 06/20/16 10:20 98 F 95 16 127/65 98 06/20/16 08:52 91 14 134/77 97 06/20/16 07:19 93 20 128/60 95 06/20/16 06:49 90 20 128/66 96 06/20/16 06:03 92 20 139/68 97 06/20/16 05:04 94 20 142/79 94 L 06/20/16 04:16 97.6 F 97 18 147/80 98 06/20/16 03:14 97.9 F 107 H 20 147/80 97 - Constitutional General appearance: disheveled, obese - EENT EENT: ATNC, PERRL - Respiratory no increased work of breathing. Respiratory: no respiratory distress - Cardiovascular regular rate and rhythm - Gastrointestinal nontender nondistended - Integumentary normal - Neurologic Cranial nerves II through XII intact, speech and language are normal. No unilateral I's and weakness observed on exam. No seizure-like activity noted. Strengths are equal UE bilaterally at 4+ out of 5 and lower extremity strengths are equal bilaterally at 4+ out of 5. Deep tendon reflexes are equal and symmetrical both upper and lower extremity. patient is negative for any acute findings. - Musculoskeletal Musculoskeletal: no pain, normal range of motion - Psychiatric Psychiatric: mood/affect appropriate, cooperative Results - Laboratory Findings CBC and BMP: 06/20/16 06:47 06/20/16 06:47 Abnormal Lab Findings: Abnormal Labs 06/20/16 06/20/16 06/20/16 06:47 06:47 21:05 RBC 3.94 L Hgb 10.8 L Hct 32.9 L Sodium 135 L Carbon Dioxide 20 L BUN 21 H Glucose 138 H POC Glucose (mg/dL) 167 H AST 16 L Total Protein 5.8 L Albumin 3.4 L - Diagnostic Findings Additional findings: Carotid Doppler study noted no hemodynamically significant stenosis. EEG is ordered and pending CT of the brain noted no acute process. also, imaging noted cerebral atrophy compared to patient's age. Assessment and Plan (1) TIA (transient ischemic attack) Narrative/Plan: patient has reported history of TIA several years ago. Patient does not have any acute findings on physical exam. He has returned to baseline. Patient does have what appears to be a new intermittent history of expressive aphasia. He is an active marijuana user and also has a concurrent facial infection that can also be contributing to his facial numbness and tingling as well. I am going to order further diagnostic workup to include EEG, serum homocystine level , fasting lipid panel as well as CT of the brain. Patient will continue 325 mg aspirin daily. As previously noted, patient's carotid Doppler study revealed no hemodynamically significant stenosis. Recommend a referral to ENT as to address the patients facial complaints. Patiently will be followed by neurology. Further recommendations and treatment options will be forthcoming once results of testing and then received and reviewed. I discussed the patient's pertinent medical information with Dr. Marroquin. He agrees with the plan of care as implemented. Status: Acute
[2016-06-21] MEDS: MUPIROCIN 2% OINT 22 GM TUBE TOPICAL SCH ×2 (02:17→15:36)
[2016-06-21 06:19] LABS: Glucose,Whole Blood 144 mg/dL (75-99)
[2016-06-21] MEDS: metFORMIN 500 MG TAB PO SCH (06:48)
[2016-06-21] MEDS: METOCLOPRAMIDE 10 MG TAB PO SCH ×2 (06:49→12:49)
[2016-06-21] MEDS: ACARBOSE 25 MG TAB PO SCH ×2 (06:49→12:49)
[2016-06-21] MEDS: GLIMEPIRIDE 4 MG TAB PO SCH (06:49)
[2016-06-21] MEDS ORDERED: ASPIRIN 325 MG TAB PO SCH (09:00)
[2016-06-21 09:04] VITALS: RESP 16
[2016-06-21] MEDS: FUROSEMIDE 40 MG TAB PO SCH (09:07)
[2016-06-21] MEDS: ASPIRIN 325 MG TAB PO SCH (09:07)
[2016-06-21] MEDS: ENOXAPARIN 40 MG/0.4 ML SYRINGE SQ SCH (09:07)
[2016-06-21] MEDS: ISOSORBIDE MONONITRATE ER 30 MG TAB.ER.24H PO SCH (09:07)
[2016-06-21] MEDS: GABAPENTIN 300 MG CAP PO SCH ×2 (09:07→15:38)
[2016-06-21] MEDS: LISINOPRIL 2.5 MG TAB PO SCH (09:08)
[2016-06-21] MEDS: METOPROLOL TARTRATE 50 MG TAB PO SCH (09:08)
[2016-06-21] MEDS: PRASUGREL 10 MG TAB PO SCH (09:08)
[2016-06-21] MEDS: RANOLAZINE 500 MG TAB.ER.12H PO SCH (09:08)
[2016-06-21] MEDS: SERTRALINE 100 MG TAB PO SCH (09:10)
[2016-06-21 09:13] LABS: Cholesterol 152 mg/dL (<200); HDL Cholesterol 43 mg/dL (40-60); Triglycerides 317 mg/dL (<150)
[2016-06-21 11:32] VITALS: TEMP 97
[2016-06-21 12:39] LABS: Glucose,Whole Blood 275 mg/dL (75-99)
[2016-06-21 15:36] VITALS: BP 111/65; PULSE 84
[2016-06-21 17:20] LABS: Glucose,Whole Blood 182 mg/dL (75-99)
--- NOTE | 2016-06-21 23:07 | P.PN ---
Subjective Principal diagnosis: facial numbness and tingling Patient is a 40-year-old male presented to the emergency room a chief complaint of pressure in the right side of his face. Pressure-like feeling also was occurring in the right upper and lower extremity. Patient did have a history of a mini stroke several years ago. He stated that these sensations were similar to his prior mini stroke. He states he did not notice any decreased strength on the affected side. He states the feeling was more of a heaviness. fasting lipid panel was requested with noted triglycerides at 317, cholesterol 152, LDL of 46 and HDL of 43. patient's EEG was obtained but was still pending. His carotid Doppler noted no hemodynamically significant stenosis. His CT of his brain noted no acute process. Patient is currently an insulin-dependent diabetic. He is currently on max dose of statin in an attempt to control his lipids. On contact today, the patient was supine in bed resting in no acute distress. He stated that his symptoms have returned to baseline. Patient was alert and oriented 3. Objective - Vital Signs Vital signs: Vital Signs Temp 97 F L 06/21/16 15:35 Pulse 84 06/21/16 15:35 Resp 16 06/21/16 15:35 BP 111/65 06/21/16 15:35 Pulse Ox 95 06/21/16 15:35 Intake & Output 06/21/16 06/21/16 06/22/16 06:59 18:59 06:59 Output Total 200 Balance -200 Weight 117.9 kg Output: Urine 200 Other: Voiding Method Toilet Urinal # Voids 1 3 - Exam Constitutional: AOx3, cooperative Head: NC/AT Throat: Supple, no masses Respiratory: No increased work of breathing Cardiac: Regular rate and Rhythm GI: non tender, non distended Musculoskeletal: Strength mildly decreased in the right compared to the left but is noted to be chronic by the patient in both upper and lower extremities. Neurological: CN II-XII in tact, patient was AOx3, speech and language are normal, no unilateralizing weakness, no seizure activity note on physical exam. Sensation was normal. Integementary: no rash, no erythema Psychiatric: mood and affect appropriate - Labs CBC & Chem 7: 06/20/16 06:47 06/20/16 06:47 Labs: Abnormal Lab Results - Last 24 Hours (Table) 06/21/16 06/21/1617 Range/Units 06:17 08:31 12:23 POC Glucose (mg/dL) 144 H 275 H (75-99) mg/dL Triglycerides 317 H (<150) mg/dL 06/21/16 Range/Units 17:15 POC Glucose (mg/dL) 182 H (75-99) mg/dL Triglycerides (<150) mg/dL Assessment and Plan (1) TIA (transient ischemic attack) Narrative/Plan: patient has reported history of TIA several years ago. Patient does not have any acute findings on physical exam. He has returned to baseline. Patient does have what appears to be a new intermittent history of expressive aphasia. He is an active marijuana user and also has a concurrent facial infection that can also be contributing to his facial numbness and tingling as well. Patient CT of the brain was unremarkable. EEG was obtained but the results are pending. As previously noted, patient's Carotid Doppler study revealed no hemodynamically significant stenosis. lipid panel had previous abnormalities noted which included triglycerides at 317, cholesterol 152, LDL at 46 HDL 43. Patient is currently noted to be on max dose of rosuvastatin. As a result of his diabetes and current max dose of statin . I am going to add Zetia 10 mg, QDAY to his medication regimen for his lipid management. Patient will maintain 325 mg aspirin use. Recommend a referral to ENT as to address the patients facial complaints. patient contact our office within 2 business days for follow-up appointment within 10-14 days. Status: Patient is cleared from a neurological standpoint for discharge. EEG results will be discussed at his office visit outpatient. I discussed the patient's pertinent medical information with Dr. Marroquin. He agrees with the plan of care as implemented. Status: Acute
[2016-06-22] MEDS ORDERED: EZETIMIBE 10 MG TAB PO SCH (09:00)
--- NOTE | 2016-06-22 11:35 | DS ---
DATE OF ADMISSION: 06/20/2016 DATE OF DISCHARGE: 06/21/2016 FINAL DIAGNOSES: 1. Possible transient ischemic attack per Neurology. 2. Automatic implantable cardioverter defibrillator. 3. Chronic congestive heart failure from systolic dysfunction; ejection fraction 40 to 45% from underlying coronary artery disease. 4. Coronary artery disease with prior history of stent. 5. Diabetes mellitus type 2, chronically on insulin. 6. Gastroesophageal reflux disease. 7. Hyperlipidemia. 8. Essential hypertension. 9. Chronic sleep apnea, 10. Diabetes mellitus type 2 causing peripheral neuropathy. 11. Chronic gastritis. 12. Depression. 13. Left bundle branch block history of. 14. Primary osteoarthritis of multiple joints, bilaterally. 15. Obesity, body mass index greater than 40. HOSPITAL COURSE: This patient presented with some pain in the right side of the face and right shoulder, headache. Seen by Neurology, Dr. Marroquin's team. They felt this could be a possible transient ischemic attack. Symptoms are much better by the time of discharge. Patient did have a CT scan of the brain x2. Carotid Doppler was unremarkable. I spoke to Marky from Dr. Marroquin's team. They will do an EEG as an outpatient. Patient's exam was unremarkable. Patient's LDL is 46, triglycerides 3.7. DISCHARGE MEDICATIONS: 1. Nitrostat 0.4 sublingual q.5 p.r.n. 2. Zoloft 200 mg p.o. daily. 3. Effient 10 mg p.o. daily. 4. Tradjenta 5 mg p.o. q.h.s. 5. Aspirin 325 p.o. daily. 6. Lasix 40 mg p.o. daily. 7. Metformin 1000 mg p.o. b.i.d. 8. Prilosec 40 mg at supper. 9. Reglan will be discontinued. 10. Baclofen 10 mg p.o. t.i.d. p.r.n. 11. Abilify 10 mg q.h.s. 12. Trulicity 1.5 mg subcu on Thursday. 13. Glimepiride 4 mg p.o. a.c. b.i.d. 14. ( ) 40 mg p.o. q.h.s. 15. Imdur ER 90 mg p.o. daily. 16. Zestril 2.5 mg p.o. daily. 17. Precose 25 mg p.o. t.i.d. 18. Neurontin 300 mg p.o. t.i.d. 19. Ranexa 1000 mg p.o. b.i.d. 20. Lopressor 50 mg p.o. b.i.d. 21. Bactroban 2% topical t.i.d. 22. Zetia 10 mg p.o. daily added per Neurology. Follow with Dr. Junie New in [address] Marroquin in one week. On examination, her lungs are clear. CARDIOVASCULAR: First and second sounds are normal.
[2016-06-22] MEDS ORDERED: NON-FORMULARY DRUG (Dulaglutide [Trulicity] 1.5 MG) SQ SCH (12:53)
--- NOTE | 2016-06-24 08:09 | EEG ---
DATE OF SERVICE: 06/21/2016 REASON FOR TESTING: Stroke. AGE: 40Y DESCRIPTION OF THE PROCEDURE: This EEG was performed using a 21-channel digital electroencephalograph, following the international 10 to 20 system. DESCRIPTION OF THE RECORDING: From the beginning of the tracing, and with the patient's eyes closed, the background rhythm was mostly consisting of 8 to 9 Hz alpha frequency in the posterior occipital leads. No obvious asymmetry is seen. Photic stimulation was performed with a good driving response seen. No pathological waves were elicited. Hyperventilation was not performed. The patient remains awake throughout the tracing. No epileptiform discharges were seen. His EKG lead showed a regular rate and rhythm. INTERPRETATION: This awake EEG can be considered within normal limits. There was no asymmetry seen. No epileptiform discharges were noticed. The absence of epileptiform discharges does not rule out the diagnosis of epilepsy, therefore, clinical correlation is recommended.
== END 2016-06-21 17:47 | disposition home or self-care (01) | DRG 69 ==
LOC: EC 00:28 → 6SEL 02:49
PROVIDERS: ADMIT Hospitalist; ATTEND Hospitalist
DX: G45.9 Transient cerebral ischemic attack, unspecified (principal); I11.0 Hypertensive heart disease with heart failure; E11.42 Type 2 diabetes mellitus with diabetic polyneuropathy; I50.22 Chronic systolic (congestive) heart failure; R47.01 Aphasia; I25.10 Atherosclerotic heart disease of native coronary artery without angina pectoris; I44.7 Left bundle-branch block, unspecified; K21.9 Gastro-esophageal reflux disease without esophagitis; K29.50 Unspecified chronic gastritis without bleeding; E11.43 Type 2 diabetes mellitus with diabetic autonomic (poly)neuropathy; M19.91 Primary osteoarthritis, unspecified site; F32.9 Major depressive disorder, single episode, unspecified; F43.10 Post-traumatic stress disorder, unspecified; F41.9 Anxiety disorder, unspecified; I25.5 Ischemic cardiomyopathy; E78.5 Hyperlipidemia, unspecified; G89.29 Other chronic pain; F12.90 Cannabis use, unspecified, uncomplicated; G47.33 Obstructive sleep apnea (adult) (pediatric); R51 Headache; I25.2 Old myocardial infarction; M54.9 Dorsalgia, unspecified; L40.9 Psoriasis, unspecified; K44.9 Diaphragmatic hernia without obstruction or gangrene; M25.511 Pain in right shoulder; K31.84 Gastroparesis; R53.1 Weakness; R00.0 Tachycardia, unspecified; R29.700 NIHSS score 0; Z86.14 Personal history of Methicillin resistant Staphylococcus aureus infection; Z82.49 Family history of ischemic heart disease and other diseases of the circulatory system; Z86.73 Personal history of transient ischemic attack (TIA), and cerebral infarction without residual deficits; Z87.828 Personal history of other (healed) physical injury and trauma; Z86.19 Personal history of other infectious and parasitic diseases; Z83.3 Family history of diabetes mellitus; Z82.0 Family history of epilepsy and other diseases of the nervous system; Z87.01 Personal history of pneumonia (recurrent); Z88.1 Allergy status to other antibiotic agents; Z91.041 Radiographic dye allergy status; Z88.5 Allergy status to narcotic agent; Z88.0 Allergy status to penicillin; Z91.013 Allergy to seafood; Z88.8 Allergy status to other drugs, medicaments and biological substances; Z91.048 Other nonmedicinal substance allergy status; Z95.810 Presence of automatic (implantable) cardiac defibrillator; Z95.5 Presence of coronary angioplasty implant and graft; Z90.49 Acquired absence of other specified parts of digestive tract; Z91.5 Personal history of self-harm; Z90.79 Acquired absence of other genital organ(s); Z91.19 Patient's noncompliance with other medical treatment and regimen; Z79.84 Long term (current) use of oral hypoglycemic drugs; Z79.02 Long term (current) use of antithrombotics/antiplatelets; Z79.82 Long term (current) use of aspirin; Z79.899 Other long term (current) drug therapy; Z79.4 Long term (current) use of insulin
CPT/HCPCS: 36415; 70450; 72040; 80053; 80061; 82550; 82553; 83090; 84484; 85025; 85027; 85610; 85730; 93005; 93880; 95819; 96361; 96372; 96374; 96375; 99285

== ENCOUNTER 2016-06-25 02:29 | Emergency (ER) | payer MEDICARE, OTHER ==
[2016-06-25 02:38] VITALS: BP 135/71; PULSE 89; RESP 16; TEMP 97.7
[2016-06-25] MEDS ORDERED: MORPHINE SULFATE 4 MG/ML SYRINGE IM STA (02:52)
[2016-06-25] MEDS ORDERED: DIAZEPAM 5 MG/ML 2 ML SYRINGE IM STA (02:52)
--- NOTE | 2016-06-25 02:58 | ED ---
Headache HPI - General Chief Complaint: Headache Stated Complaint: headache Time Seen by Provider: 06/25/16 02:40 Source: patient, RN notes reviewed Mode of arrival: ambulatory Limitations: no limitations - History of Present Illness Initial Comments: 40-year-old male presents emergency Department chief complaint of neck discomfort. Patient states that he was sitting at his sister's work when he believes she was walking by and he quickly turned to the left. Patient states he felt some popping in his neck and states that ever since he's had tightness, muscle spasms to the right side. Patient states is causing a squeezing-like pressure headache. The patient states that he is no blurred vision, nausea, vomiting, focal weakness. Patient states it's more just tightening of his neck. Patient states he has increased pain when he rotates left and right. Patient states that this feels stiff. Patient denies chest pain, shortness of breath. Patient states he was recently admitted possible rule out CVA. Patient had evaluation from neurologist, [employer] which showed possible TIA though there is no definite CVA type symptoms. Patient had 2 CTs which showed no acute abnormality. Patient does take all his medications as directed. Patient had no chest pain or shortness breath. Patient states that he's been able to and they with no difficulty no dizziness no lightheadedness. Patient denies any focal weakness. - Related Data Home Medications Medication Instructions Recorded Confirmed Nitroglycerin Sl Tabs [Nitrostat] 0.4 mg SUBLINGUAL Q5M PRN 10/13/13 06/25/16 Sertraline HCl [Zoloft] 200 mg PO QAM 10/13/13 06/25/16 Linagliptin [Tradjenta] 5 mg PO HS 10/13/14 06/25/16 Furosemide [Lasix] 40 mg PO DAILY 05/21/15 06/25/16 metFORMIN HCL 1,000 mg PO AC-BID 07/03/15 06/25/16 Omeprazole [PriLOSEC] 40 mg PO AC-SUPPER 08/13/15 06/25/16 Baclofen [Lioresal] 10 mg PO TID PRN 01/13/16 06/25/16 ARIPiprazole 10 mg PO HS 03/10/16 06/25/16 Dulaglutide [Trulicity] 1.5 mg SQ OROZCO 03/10/16 06/25/16 Glimepiride 4 mg PO AC-BID 03/10/16 06/25/16 Rosuvastatin Calcium 40 mg PO HS 05/05/16 06/25/16 Lisinopril [Zestril] 2.5 mg PO DAILY 06/01/16 06/25/16 Acarbose [Precose] 25 mg PO TID 06/09/16 06/25/16 Gabapentin [Neurontin] 300 mg PO TID 06/09/16 06/25/16 Ranolazine [Ranexa] 1,000 mg PO BID 06/09/16 06/25/16 Previous Rx's Medication Instructions Recorded Prasugrel [Effient] 10 mg PO DAILY #14 tab 06/01/14 Isosorbide Mononitrate ER [Imdur] 90 mg PO DAILY #120 tab.er.24h 05/28/16 Metoprolol Tartrate [Lopressor] 50 mg PO BID #60 tab 06/10/16 Mupirocin 2% Oint [Bactroban 2% 1 applic TOPICAL TID #1 gm 06/11/16 Oint] Aspirin 81 mg PO DAILY #30 chewable 06/21/16 Ezetimibe [Zetia] 10 mg PO DAILY #30 tab 06/21/16 Allergies Allergy/AdvReac Type Severity Reaction Status Date / Time Penicillins Allergy Severe Rash/Hives Verified 06/25/16 02:37 meclizine Allergy Unknown Unknown Verified 06/25/16 02:37 erythromycin base AdvReac Severe Swelling Verified 06/25/16 02:37 [Erythromycin Base] shellfish derived AdvReac Severe Swelling Verified 06/25/16 02:37 cephalexin monohydrate AdvReac Mild Nausea & Verified 06/25/16 02:37 [From Keflex] Vomiting codeine AdvReac Unknown Swelling Verified 06/25/16 02:37 naproxen AdvReac Unknown Unknown Verified 06/25/16 02:37 atorvastatin calcium AdvReac MUSCLE PAIN Verified 06/25/16 02:37 [From Lipitor] Iodinated Contrast Media - AdvReac Unknown Verified 06/25/16 02:37 Oral and bird feces AdvReac Swelling Uncoded 06/25/16 02:37 sea food AdvReac Swelling Uncoded 06/25/16 02:37 Review of Systems ROS Statement: Those systems with pertinent positive or pertinent negative responses have been documented in the HPI. ROS Other: All systems not noted in ROS Statement are negative. Past Medical History Past Medical History: Coronary Artery Disease (CAD), Chest Pain / Angina, Heart Failure, CVA/TIA, Diabetes Mellitus, GERD/Reflux, Hyperlipidemia, Hypertension, Myocardial Infarction ([place]), Osteoarthritis (OA), Pneumonia, Skin Disorder, Sleep Apnea/CPAP/BIPAP Additional Past Medical History / Comment(s): Pt was admitted to [facility] recently on 06/09/16 with L facial cellulitis which is nearly healed. Other HX: Coronary artery disease with multiple vessel disease, ischemic cardiomyopathy, diabetic neuropathy bilateral hands and feet, hypertension hypertensive cardiovascular disease, chronic gastritis, chronic back pain, depression with multiple suicide attempts with insulin in the past.GASTROPARESIS, PSORIASES, SHELIA refuses CPAP, NIDDM type II. Last Myocardial Infarction Date:: 06/03/16 per pt. 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 Past Anesthesia/Blood Transfusion Reactions: No Reported Reaction Additional Past Anesthesia/Blood Transfusion Reaction / Comment(s): . Date of Last Stent Placement:: 06/03/16 Type of Cardiac Device: AICD Device Placement Date:: 09/19/15 Past Psychological History: Anxiety, Depression, PTSD Additional Psychological History / Comment(s): Several suicide attempts with use of insulin. PT STATED HAS PTSD- IN 2000- HIS 3 MONTH OLD SON IN HIS ARMS(CHILD WAS BORN 2 MONTHS PREMATURE). Pt states his depression is stable at this time and does not have any suicidal thoughts or plans. Pt lives with his spouse and 2 stepchildren. He is independent. PT ON DISABILTY MULTIFACTORIAL PER PT. Smoking Status: Never smoker Past Alcohol Use History: Rare Additional Past Alcohol Use History / Comment(s): . He does not drink alcohol or use street drugs. He is currently living with his .PT DENIES HAVING EVER BEEN A SMOKER Past Drug Use History: Marijuana Additional Drug Use History / Comment(s): NONE IN 15 YEARS has smoked marijuana - Past Family History Mother Family Medical History: Coronary Artery Disease (CAD), Myocardial Infarction ([place] ) Additional Family Medical History / Comment(s): 7 [place] and faulty heart valve. Pt does not know the age when mother had her MIs. Father History Unknown: Yes Additional Family Medical History / Comment(s): Does not know who father is Brother(s) Family Medical History: Congestive Heart Failure (CHF), Myocardial Infarction ( [place]) Additional Family Medical History / Comment(s): Parkinsons. Pt does not know at what age his brother had a [place] Patient has Family Medical History: No Reported History Additional Family Medical History / Comment(s): There is a strong family history for heart disease, hypertension, and diabetes. General Exam Limitations: no limitations General appearance: alert, in no apparent distress Head exam: Present: atraumatic, normocephalic, normal inspection Eye exam: Present: normal appearance, PERRL, EOMI. Absent: scleral icterus, conjunctival injection, periorbital swelling ENT exam: Present: normal exam, normal oropharynx, mucous membranes moist, TM's normal bilaterally Neck exam: Present: normal inspection, tenderness (Mild tenderness along the right trapezius, cervical paraspinal), full ROM, other (Muscle spasm noted to the right trapezius along the cervical region). Absent: meningismus, lymphadenopathy Respiratory exam: Present: normal lung sounds bilaterally. Absent: respiratory distress, wheezes, rales, rhonchi, stridor Cardiovascular Exam: Present: regular rate, normal rhythm, normal heart sounds. Absent: systolic murmur, diastolic murmur, rubs, gallop, clicks Extremities exam: Present: other (Upper and lower extremity strength equal bilaterally) Neurological exam: Present: alert, oriented X3, CN II-XII intact, reflexes normal, other (Finger to nose intact bilaterally without over shooting, normal cerebellar testing). Absent: motor sensory deficit Skin exam: Present: warm, dry, intact, normal color. Absent: rash Course Vital Signs 06/25/16 02:35 Temperature 97.7 F Pulse Rate 89 Respiratory 16 Rate Blood Pressure 135/71 O2 Sat by Pulse 98 Oximetry Medical Decision Making - Medical Decision Making Patient's medical record was thoroughly reviewed. Patient is a 40-year-old male presented for neck pain after moving quickly. Patient does have positive muscle spasm total of the trapezius. Patient will be given pain medication, muscle relaxer at this time and discharge. Patient has no neurological deficits. Patient will follow-up with primary care physician, neurologist as he already has scheduled Disposition Clinical Impression: Cervical paraspinal muscle spasm, Tension headache Disposition: HOME SELF-CARE Condition: Stable Instructions: Muscle Spasm (ED) Additional Instructions: Please return to the Emergency Department if symptoms worsen or any other concerns. Time of Disposition: 02:58
== END 2016-06-25 03:04 | disposition home or self-care (01) ==
LOC: EC 02:29
DX: G44.209 Tension-type headache, unspecified, not intractable (principal); M62.838 Other muscle spasm; I11.0 Hypertensive heart disease with heart failure; I50.9 Heart failure, unspecified; I25.5 Ischemic cardiomyopathy; E11.40 Type 2 diabetes mellitus with diabetic neuropathy, unspecified; E78.5 Hyperlipidemia, unspecified; K21.9 Gastro-esophageal reflux disease without esophagitis; F43.10 Post-traumatic stress disorder, unspecified; F41.9 Anxiety disorder, unspecified; F32.9 Major depressive disorder, single episode, unspecified; G47.33 Obstructive sleep apnea (adult) (pediatric); Z79.82 Long term (current) use of aspirin; Z79.84 Long term (current) use of oral hypoglycemic drugs; Z79.899 Other long term (current) drug therapy; Z88.0 Allergy status to penicillin; Z88.8 Allergy status to other drugs, medicaments and biological substances; Z82.49 Family history of ischemic heart disease and other diseases of the circulatory system; Z86.73 Personal history of transient ischemic attack (TIA), and cerebral infarction without residual deficits; Z95.810 Presence of automatic (implantable) cardiac defibrillator; Z95.5 Presence of coronary angioplasty implant and graft
CPT/HCPCS: 99283; 96372 ×2; J2270; J3360

== ENCOUNTER 2016-06-30 00:01 | Inpatient (IN) | payer MEDICARE, OTHER ==
[2016-06-30] MEDS ORDERED: NITROGLYCERIN SL TABS 0.4 MG TAB SUBLINGUAL PRN ×2 (00:40→02:08)
--- NOTE | 2016-06-30 00:43 | ED ---
Chest Pain HPI - General Chief Complaint: Chest Pain Stated Complaint: RICKY/Chest Tight/Pain Arm,Jaw Time Seen by Provider: 06/30/16 00:16 Source: patient, RN notes reviewed Mode of arrival: ambulatory Limitations: no limitations - History of Present Illness Initial Comments: This is a 40-year-old male with a history of heart disease who in tonight with the onset of chest pain in the right side of his chest 78/10 severity feels like a weight also some midsternal discomfort. No shortness of breath fevers chills or sweats. He does not feel like his usual chest pain. MD Complaint: chest pain - Related Data Home Medications Medication Instructions Recorded Confirmed Nitroglycerin Sl Tabs [Nitrostat] 0.4 mg SUBLINGUAL Q5M PRN 10/13/13 06/25/16 Sertraline HCl [Zoloft] 200 mg PO QAM 10/13/13 06/25/16 Linagliptin [Tradjenta] 5 mg PO HS 10/13/14 06/25/16 Furosemide [Lasix] 40 mg PO DAILY 05/21/15 06/25/16 metFORMIN HCL 1,000 mg PO AC-BID 07/03/15 06/25/16 Omeprazole [PriLOSEC] 40 mg PO AC-SUPPER 08/13/15 06/25/16 Baclofen [Lioresal] 10 mg PO TID PRN 01/13/16 06/25/16 ARIPiprazole 10 mg PO HS 03/10/16 06/25/16 Dulaglutide [Trulicity] 1.5 mg SQ OROZCO 03/10/16 06/25/16 Glimepiride 4 mg PO AC-BID 03/10/16 06/25/16 Rosuvastatin Calcium 40 mg PO HS 05/05/16 06/25/16 Lisinopril [Zestril] 2.5 mg PO DAILY 06/01/16 06/25/16 Acarbose [Precose] 25 mg PO TID 06/09/16 06/25/16 Gabapentin [Neurontin] 300 mg PO TID 06/09/16 06/25/16 Ranolazine [Ranexa] 1,000 mg PO BID 06/09/16 06/25/16 Previous Rx's Medication Instructions Recorded Prasugrel [Effient] 10 mg PO DAILY #14 tab 06/01/14 Isosorbide Mononitrate ER [Imdur] 90 mg PO DAILY #120 tab.er.24h 05/28/16 Metoprolol Tartrate [Lopressor] 50 mg PO BID #60 tab 06/10/16 Mupirocin 2% Oint [Bactroban 2% 1 applic TOPICAL TID #1 gm 06/11/16 Oint] Aspirin 81 mg PO DAILY #30 chewable 06/21/16 Ezetimibe [Zetia] 10 mg PO DAILY #30 tab 06/21/16 Allergies Allergy/AdvReac Type Severity Reaction Status Date / Time Penicillins Allergy Severe Rash/Hives Verified 06/30/16 00:11 meclizine Allergy Unknown Unknown Verified 06/30/16 00:11 erythromycin base AdvReac Severe Swelling Verified 06/30/16 00:11 [Erythromycin Base] shellfish derived AdvReac Severe Swelling Verified 06/30/16 00:11 cephalexin monohydrate AdvReac Mild Nausea & Verified 06/30/16 00:11 [From Keflex] Vomiting codeine AdvReac Unknown Swelling Verified 06/30/16 00:11 naproxen AdvReac Unknown Unknown Verified 06/30/16 00:11 atorvastatin calcium AdvReac MUSCLE PAIN Verified 06/30/16 00:11 [From Lipitor] Iodinated Contrast Media - AdvReac Unknown Verified 06/30/16 00:11 Oral and bird feces AdvReac Swelling Uncoded 06/30/16 00:11 sea food AdvReac Swelling Uncoded 06/30/16 00:11 Review of Systems ROS Statement: Those systems with pertinent positive or pertinent negative responses have been documented in the HPI. ROS Other: All systems not noted in ROS Statement are negative. EKG Findings - EKG Results: EKG: interpreted by ERMD, sinus rhythm ( a rate of 96. Interval 192 QRS duration 90 QT since QTC of 336/424 atrial sensed ventricular paced rhythm) Past Medical History Past Medical History: Coronary Artery Disease (CAD), Chest Pain / Angina, Heart Failure, CVA/TIA, Diabetes Mellitus, GERD/Reflux, Hyperlipidemia, Hypertension, Myocardial Infarction ([place]), Osteoarthritis (OA), Pneumonia, Skin Disorder, Sleep Apnea/CPAP/BIPAP Additional Past Medical History / Comment(s): Pt was admitted to [facility] recently on 06/09/16 with L facial cellulitis which is nearly healed. Other HX: Coronary artery disease with multiple vessel disease, ischemic cardiomyopathy, diabetic neuropathy bilateral hands and feet, hypertension hypertensive cardiovascular disease, chronic gastritis, chronic back pain, depression with multiple suicide attempts with insulin in the past.GASTROPARESIS, PSORIASES, SHELIA refuses CPAP, NIDDM type II. Last Myocardial Infarction Date:: 06/03/16 per pt. 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 Past Anesthesia/Blood Transfusion Reactions: No Reported Reaction Additional Past Anesthesia/Blood Transfusion Reaction / Comment(s): . Date of Last Stent Placement:: 06/03/16 Type of Cardiac Device: AICD Device Placement Date:: 09/19/15 Past Psychological History: Anxiety, Depression, PTSD Additional Psychological History / Comment(s): Several suicide attempts with use of insulin. PT STATED HAS PTSD- IN 2000- HIS 3 MONTH OLD SON IN HIS ARMS(CHILD WAS BORN 2 MONTHS PREMATURE). Pt states his depression is stable at this time and does not have any suicidal thoughts or plans. Pt lives with his spouse and 2 stepchildren. He is independent. PT ON DISABILTY MULTIFACTORIAL PER PT. Smoking Status: Never smoker Past Alcohol Use History: Rare Additional Past Alcohol Use History / Comment(s): . He does not drink alcohol or use street drugs. He is currently living with his .PT DENIES HAVING EVER BEEN A SMOKER Past Drug Use History: Marijuana Additional Drug Use History / Comment(s): NONE IN 15 YEARS has smoked marijuana - Past Family History Mother Family Medical History: Coronary Artery Disease (CAD), Myocardial Infarction ([place] ) Additional Family Medical History / Comment(s): 7 [place] and faulty heart valve. Pt does not know the age when mother had her MIs. Father History Unknown: Yes Additional Family Medical History / Comment(s): Does not know who father is Brother(s) Family Medical History: Congestive Heart Failure (CHF), Myocardial Infarction ( [place]) Additional Family Medical History / Comment(s): Parkinsons. Pt does not know at what age his brother had a [place] Patient has Family Medical History: No Reported History Additional Family Medical History / Comment(s): There is a strong family history for heart disease, hypertension, and diabetes. General Exam - General Exam Comments Initial Comments: This is a well-developed well-nourished awake alert oriented times [id number] Limitations: no limitations General appearance: alert, in no apparent distress Head exam: Present: atraumatic, normocephalic, normal inspection Eye exam: Present: normal appearance, PERRL, EOMI. Absent: scleral icterus, conjunctival injection, periorbital swelling ENT exam: Present: normal exam, mucous membranes moist Neck exam: Present: normal inspection. Absent: tenderness, meningismus, lymphadenopathy Respiratory exam: Present: normal lung sounds bilaterally. Absent: respiratory distress, wheezes, rales, rhonchi, stridor Cardiovascular Exam: Present: regular rate, normal rhythm, normal heart sounds. Absent: systolic murmur, diastolic murmur, rubs, gallop, clicks GI/Abdominal exam: Present: soft, normal bowel sounds. Absent: distended, tenderness, guarding, rebound, rigid Extremities exam: Present: normal inspection, full ROM, normal capillary refill. Absent: tenderness, pedal edema, joint swelling, calf tenderness Back exam: Present: normal inspection Neurological exam: Present: alert, oriented X3, CN II-XII intact Psychiatric exam: Present: normal affect, normal mood Skin exam: Present: warm, dry, intact, normal color. Absent: rash Course Vital Signs 06/30/16 06/30/16 06/30/16 00:08 01:04 01:09 Temperature 98.5 F Pulse Rate 97 92 94 Respiratory 20 18 20 Rate Blood Pressure 125/79 116/58 97/53 O2 Sat by Pulse 98 97 96 Oximetry - Reevaluation(s) Reevaluation #1: 06/30/16 02:05 I did discuss findings with the patient side of his chest pressure he will be admitted he did require nitroglycerin. IV fluids. Chest Pain MDM - MDM Review the x-ray showed no definite acute findings I did discuss findings with the patient patient will be admitted with cardiology consultation. He will be placed on appropriate medication. Critical Care Time Critical Care Time: Yes Critical Care Time: 34 minutes of critical care time which included initial history physical lab and x-ray orders evaluation same reevaluation of the patient result of labs given as well as results and response to therapy. Admission orders documentation same review of old charting discussion with the admitting physician. Disposition Clinical Impression: NSTEMI (non-ST elevated myocardial infarction), AICD (automatic cardioverter/ defibrillator) present, Hypomagnesemia syndrome Disposition: ADMITTED IP TO THIS HOSP Condition: Stable
[2016-06-30 00:58] LABS: Basophils % (A) 1 %; CH 27.3; CHCM 33.4; Eosinophils # (A) 0.1 k/uL (0-0.7); Eosinophils % (A) 2 %; HCT 35.6 % (39.0-53.0); HDW 3.02; HGB 11.4 gm/dL (13.0-17.5); Luc % (Auto) 2; Lymphocytes # (A) 1.9 k/uL (1.0-4.8); Lymphocytes % (A) 45 %; MCH 26.4 pg (25.0-35.0); MCHC 32.2 g/dL (31.0-37.0); Mean Platelet Volume 8.6; Monocytes # (A) 0.3 k/uL (0-1.0); Monocytes % (A) 6 %; Neutrophils # (A) 1.9 k/uL (1.3-7.7); Neutrophils % (A) 44 %; RBC 4.34 m/uL (4.30-5.90); RDW 14.8 % (11.5-15.5); WBC 4.3 k/uL (3.8-10.6); WBC (Perox) 4.42
[2016-06-30 01:10] LABS: ALT 39 U/L (21-72); AST 24 U/L (17-59); Alkaline Phosphatase 96 U/L (38-126); Amylase 40 U/L (30-110); Anion Gap 12 mmol/L; Blood Urea Nitrogen 28 mg/dL (9-20); Calcium 8.9 mg/dL (8.4-10.2); Carbon Dioxide 21 mmol/L (22-30); Chloride 103 mmol/L (98-107); Glucose 100 mg/dL (74-99); Magnesium 1.3 mg/dL (1.6-2.3); Non-African American GFR(MDRD) 56 (>60 ml/min/1.73 sqM); Potassium 4.7 mmol/L (3.5-5.1); Sodium 136 mmol/L (137-145); Total Bilirubin 0.3 mg/dL (0.2-1.3); Total Protein 6.2 g/dL (6.3-8.2)
--- NOTE | 2016-06-30 01:12 | XR ---
EXAMINATION TYPE: XR chest 2V DATE OF EXAM: 06/30/2016 12:58 AM COMPARISON: 05/31/2016 HISTORY: Chest pain TECHNIQUE: Frontal and lateral views of the chest are obtained. FINDINGS: There is no focal air space opacity, pleural effusion, or pneumothorax seen. Heart is bord mercy enlarged in size. Left-sided pacemaker is noted. The osseous structures are intact. IMPRESSION: 1. No active pulmonary infiltrates.
[2016-06-30 01:13] LABS: INR 1.1 (<1.1); Partial Thromboplastin Time 22.5 sec (22.0-30.0); Prothrombin Time 10.7 sec (9.0-12.0)
[2016-06-30 01:39] LABS: Creatine Kinase MB 4.2 ng/mL (0.0-2.4); Troponin I 0.318 ng/mL (0.000-0.034)
[2016-06-30] MEDS ORDERED: MAGNESIUM SULFATE-D5W PMX 1 GM in DEXTROSE/WATER 1 100ML.BAG IVPB ONE (01:58)
[2016-06-30] MEDS ORDERED: SODIUM CHLORIDE 0.9% 500 ML IV STA (02:02)
[2016-06-30] MEDS ORDERED: NITROGLYCERIN OINT 1 INCH/GM PACKET TOPICAL STA (02:03)
[2016-06-30] MEDS ORDERED: BACLOFEN 10 MG TAB PO PRN (02:10)
[2016-06-30] MEDS ORDERED: FAMOTIDINE 20 MG/2 ML VIAL IV STA (02:29)
[2016-06-30] MEDS ORDERED: HYDROmorphone 1 MG/ML 1 ML SYRINGE IVP PRN (03:19)
[2016-06-30] MEDS: SODIUM CHLORIDE 0.9% 1,000 ML IV SCH (04:00)
[2016-06-30 04:10] VITALS: BMI 41.3
[2016-06-30 04:17] LABS: Glucose,Whole Blood 100 mg/dL (75-99)
[2016-06-30 06:01] LABS: Glucose,Whole Blood 94 mg/dL (75-99)
[2016-06-30] MEDS: NITROGLYCERIN OINT 1 INCH/GM PACKET TOPICAL SCH ×3 (06:21→17:12)
[2016-06-30 06:41] LABS: Creatine Kinase MB 3.7 ng/mL (0.0-2.4); Troponin I 0.254 ng/mL (0.000-0.034)
[2016-06-30] MEDS: INSULIN LISPRO (humaLOG) 300 UNIT/3 ML VIAL SQ SCH ×4 (06:51→21:53)
[2016-06-30] MEDS: ISOSORBIDE MONONITRATE ER 30 MG TAB.ER.24H PO SCH (09:23)
[2016-06-30] MEDS: EZETIMIBE 10 MG TAB PO SCH (09:23)
[2016-06-30] MEDS: GABAPENTIN 300 MG CAP PO SCH ×3 (09:23→22:18)
[2016-06-30] MEDS: METOPROLOL TARTRATE 50 MG TAB PO SCH ×2 (09:24→22:17)
[2016-06-30] MEDS: SERTRALINE 100 MG TAB PO SCH (09:24)
[2016-06-30] MEDS: PRASUGREL 10 MG TAB PO SCH (09:24)
[2016-06-30] MEDS: FUROSEMIDE 40 MG TAB PO SCH (09:24)
[2016-06-30] MEDS: LISINOPRIL 2.5 MG TAB PO SCH (09:24)
[2016-06-30] MEDS: RANOLAZINE 500 MG TAB.ER.12H PO SCH ×2 (09:24→22:17)
[2016-06-30] MEDS: metFORMIN 500 MG TAB PO SCH ×2 (09:33→17:11)
[2016-06-30] MEDS: MUPIROCIN 2% OINT 22 GM TUBE TOPICAL SCH ×3 (09:33→22:17)
[2016-06-30] MEDS: GLIMEPIRIDE 4 MG TAB PO SCH ×2 (09:33→17:11)
[2016-06-30] MEDS: ACARBOSE 25 MG TAB PO SCH ×3 (09:33→22:18)
--- NOTE | 2016-06-30 09:38 | CONS ---
DATE OF CONSULTATION: Ti is a 40-year-old gentleman with history of coronary artery disease, status post prior multiple angioplasties who has had multiple prior hospitalizations including most recent admission just a week ago. Comes in complaining of chest pain. Within the last 1 to 2 years he has had at least 7, 8 hospitalizations here at [facility]. He has also been cared for at [facility]. 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 He comes in complaining of precordial chest discomfort that is sharp, atypical, unassociated with diaphoresis and unrelated to exertion. His troponins were slightly elevated, but when I go back and looked even at his previous admissions also his cardiac enzymes have been slightly abnormal. EKG shows paced rhythm. Rhythm strip shows paced rhythm. At the time of my evaluation, he is pain free and hemodynamically stable. I talked to him about treatment options including invasive angiography, transferred his associate school psychologist at [facility], understanding all of the issues, he wishes to be treated with medical therapy at this time and discharged home. Past medical history is significant for coronary artery disease, status post prior multiple angioplasties, hypertension, dyslipidemia, diabetes, sleep apnea. ALLERGIES: He has multiple drug allergies. They are documented and I have reviewed them. Medications at home included Zoloft, ( ), sublingual nitroglycerin, Aldactone, Lasix, metformin, Prilosec, Ranexa, Trulicity, Glimepiride, Zestril and Crestor. FAMILY HISTORY: Significant for coronary artery disease. Social history is negative for smoking, EtOH use or drug abuse. REVIEW OF SYSTEMS: HEENT is unremarkable. CARDIAC: As described above. RESPIRATORY: Negative. GI: Negative. GENITOURINARY: Negative. ALLERGY/IMMUNOLOGY: Negative. SKIN: Negative. MUSCULOSKELETAL: Negative. ENDOCRINE: Negative. CONSTITUTIONAL: Negative. ONCOLOGICAL: Negative. PSYCHOSOCIAL: Negative. The rest of the system review is not relevant. On exam, comfortable at rest. Vital signs are stable. There is no jugular venous distention. Carotid upstroke is normal. There is no bruit. Chest exam reveals diminished air entry at the bases. Heart exam reveals first and second heart sounds. No gallop. His systolic murmur is at the left lower sternal border. Abdomen is soft. Exam of the extremities did not reveal edema. Peripheral pulses are felt. Labs show a potassium of 4.7, creatinine of 1.4. Hemoglobin is 11.4. Two sets of tropes are elevated at 0.31 and 0.25 but then I go back and look at his previous admissions in May, they were at 0.6 and 0.5 and he has had multiple prior admissions where his enzymes have been elevated. ASSESSMENT: 1. Troponin elevation, probably secondary to small non-ST segment elevation myocardial infarction. 2. Coronary artery disease, status post multiple prior angioplasties. 3. Hypertension. 4. Dyslipidemia. 5. Insulin-requiring diabetes. PLAN: Will treat the patient with optimal medical therapy, obtain a 2-D echo to document his LV function. I will review his outpatient records. The patient has a history of AICD.
[2016-06-30 11:56] LABS: Glucose,Whole Blood 206 mg/dL (75-99)
--- NOTE | 2016-06-30 12:03 | ECHOF ---
Referral Reason:non stemi MEASUREMENTS -------- HEIGHT: 167.6 cm WEIGHT: 116.1 kg BP: 114/72 IVSd: 1.2 cm (0.6 - 1.1) LVIDd: 4.7 cm (3.9 - 5.3) LVPWd: 1.4 cm (0.6 - 1.1) IVSs: 1.4 cm LVIDs: 4.3 cm LVPWs: 1.5 cm MV EXCURSION: 10.759 mm (> 18.000) MV EF SLOPE: 82 mm/s (70 - 150) EPSS: 1.4 cm MV E Benjy: 0.84 m/s MV DecT: 154 ms MV A Benjy: 0.57 m/s MV E/A Ratio: 1.47 RAP: 5.00 mmHg RVSP: 15.74 mmHg FINDINGS -------- Sinus rhythm. This was a technically difficult study with suboptimal views. There is mild concentric left ventricular hypertrophy. Overall left ventricular systolic function is moderately impaired with, an EF between 35 - 40 %. The right ventricle is normal in size and function. The left atrium is normal in size. The right atrium is normal in size. 1.5mg of Definity was utilized for enhancement of images The aortic valve was not well visualized. There is trace mitral regurgitation. Trace tricuspid regurgitation present. The pulmonic valve was not well visualized. The pericardium is normal. CONCLUSIONS -------- 1. Sinus rhythm. 2. There is trace mitral regurgitation. 3. Trace tricuspid regurgitation present. 4. The pulmonic valve was not well visualized. 5. The pericardium is normal. 6. This was a technically difficult study with suboptimal views. 7. There is mild concentric left ventricular hypertrophy. 8. Overall left ventricular systolic function is moderately impaired with, an EF between 35 - 40 %. 9. The right ventricle is normal in size and function. 10. The left atrium is normal in size. 11. The right atrium is normal in size. 12. 1.5mg of Definity was utilized for enhancement of images 13. The aortic valve was not well visualized. BENCH MOLDER: Ceci Wilson [facility]
[2016-06-30 13:23] LABS: Hemoglobin A1C 8.5 % (4.2-6.1)
[2016-06-30 13:55] LABS: Creatine Kinase MB 2.6 ng/mL (0.0-2.4); Troponin I 0.191 ng/mL (0.000-0.034)
[2016-06-30 16:30] LABS: Glucose,Whole Blood 184 mg/dL (75-99)
[2016-06-30] MEDS ORDERED: PANTOPRAZOLE 40 MG TABLET PO SCH (17:30)
--- NOTE | 2016-06-30 20:27 | HP ---
DATE OF ADMISSION: 06/30/2016 CHIEF COMPLAINT: Chest pain. HISTORY OF PRESENT ILLNESS: Mr. Dunham is a 40-year-old man with a known history of diabetes mellitus type 2, [id number], diabetic gastroparesis and coronary artery disease with history of multiple angioplasties, came to the hospital with complaints of chest pain especially in the left anterior chest wall 7 to 8 out of 10 in severity. Feels like somebody sitting on the chest and associated with minimal short of breath and also pain sometimes radiating to the arm and jaw. Otherwise, denied any diaphoresis, denied any headache, or dizziness or lightheadedness. Patient has previous admissions with similar kind of symptoms and had a history of multiple angioplasties in the past. Patient was also found to have a slightly elevated troponin level and patient was admitted to the hospital for non-ST elevated myocardial infarction. Patient had troponin elevation, previous admissions also in the same range. Currently patient is chest pain free. Denied any recent illnesses or sick contacts. REVIEW OF SYSTEMS: CONSTITUTIONAL: No fever. No chills. No weakness, malaise. RESPIRATORY: No cough or sputum production. CARDIOVASCULAR: No chest pain now. No short of breath. No leg swelling. ABDOMEN: No nausea, vomiting or abdominal pain. GENITOURINARY: Negative. ENDOCRINE: Negative. PSYCHIATRY: Negative. SKIN: Negative. All other 14 point review of systems negative except as above. Past medical history includes coronary artery disease, chest pain/angina, congestive heart failure with systolic dysfunction. History of cerebrovascular accident/transient ischemic attack, diabetes type 2, GERD, hyperlipidemia, hypertension, history of MT, osteoarthritis, obstructive sleep apnea on CPAP at home and depression with multiple suicide attempts with insulin in the past. Gastroparesis, psoriasis, obstructive sleep apnea and uses CPAP. PAST SURGICAL HISTORY: AICD placement, appendectomy. Cholecystectomy, cardiac catheterization and stent placement, hernia repair, multiple angioplasties and SAVANNAH. PSYCHOSOCIAL HISTORY: Anxiety, depression, PTSD. SOCIAL HISTORY: Patient had several suicidal attempts with use of insulin, says that he has PTSD in 2000 since his three month-old son in his arms. Denied any suicide attempts now. SOCIAL HISTORY: Patient never a smoker. Does not drink alcohol or use street drugs. Currently living with his . No history of previous smoking. Smoked marijuana 15 years ago. FAMILY HISTORY: Mother has coronary artery disease and myocardial infarction. Father has, father does not know. Brother has congestive heart failure and MT and Parkinson's. Strong family history of heart disease, hypertension, diabetes mellitus. ALLERGIES: PENICILLIN, MECLIZINE, ERYTHROMYCIN BASED, SHELLFISH, KEFLEX, CODEINE, NAPROSYN, ATORVASTATIN, IODINATED CONTRAST MEDIA, BIRD FECES, SEAFOOD. Home medications: 1. Nitroglycerin sublingual. 2. Zoloft. 3. Anagliptin. 4. Lasix. 5. Metformin. 6. Omeprazole. 7. Baclofen. 8. ( ). 9. ( ). 10. Glimepiride. 11. Rosuvastatin. 12. Zestril. 13. ( ). 14. Gabapentin. 15. Ranexa. 16. Effient. 17. Imdur. 18. Metoprolol. 19. Aspirin. 20. Zetia. 21. Mupirocin topical Ointment. PHYSICAL EXAMINATION: A 40-year-old man lying in the bed. Awake, alert, oriented, x3. Appears to be depressed in no apparent distress. VITALS: Blood pressure is 97/53, pulse is 94, respiration 20, temperature afebrile, pulse ox 97% on 2 L nasal cannula. HEENT: Atraumatic, normocephalic. Neck is supple. No JVD. CVS: S1, S2 heard. No murmurs or gallop. LUNGS: Bilateral air entry is present. No wheezing. No crackles. Nonlabored breathing. ABDOMEN: Soft, nontender, bowel sounds present. CENTRAL NERVOUS SYSTEM: awake, alert and oriented x3. Able to move all his extremities. No focal deficit. EXTREMITIES: No edema. Pulses palpable bilaterally. No clubbing or cyanosis. PSYCHIATRIC: Cooperative. Seems depressed. Denied any suicidal ideation. LABS: WBC 4.3, hemoglobin 11.4, platelets 212. INR 1.1. Sodium 136, potassium 4.7, chloride 103, bicarb is 21, BUN 28, creatinine 1.4, blood sugar is 100, HBA1c 8.5. ( ) 1.3, troponin 0.318 and 0.254, total protein 6.2, albumin 3.6. Chest x-ray no acute cardiopulmonary process. EKG showed ventricular paced rhythm. IMPRESSION: 1. Acute non-ST elevated myocardial infarction with elevated troponin levels. Troponin levels have been chronically elevated. Cardiology recommended medical management at this time. 2. History of coronary artery disease with history of multiple angioplasties in the past. 3. Uncontrolled diabetes mellitus. HBA1c of 8.5. 4. Hypomagnesemia. 5. Obstructive sleep apnea not using the CPAP machine. 6. Hyperlipidemia. 7. Congestive heart failure with ejection fraction, chronic congestive heart failure with ejection fraction 35 to 40%. 8. Status post AICD placement. 9. History of cerebrovascular accident/transient ischemic attack. 10. Gastroesophageal reflux disease. 11. Hyperlipidemia. 12. Hypertension. 13. Myocardial infarction. 14. History of multiple suicide attempts in the past with insulin overdose. 15. Diabetic gastroparesis. 16. Psoriasis. 17. Diabetic neuropathy of bilateral hands and feet. 18. Chronic back pain. 19. Depression and anxiety and PTSD. DISCUSSION AND PLAN: 40-year-old male with known history of multiple medical problems, and comorbid conditions admitted to the hospital with a complaint of chest pain and elevated Troponin level and non-ST elevated myocardial infarction. We will continue with medical management at this time. 2D echo showed ejection fraction 35 to 40% and cardiology is following the patient. Further recommendations based on clinical course. We will continue the home medications.
[2016-06-30 20:56] LABS: Glucose,Whole Blood 89 mg/dL (75-99)
[2016-06-30] MEDS ORDERED: LINAGLIPTIN 5 MG TABLET PO SCH (21:00)
[2016-06-30] MEDS ORDERED: ARIPiprazole 10 MG TAB PO SCH (21:00)
[2016-06-30] MEDS ORDERED: ROSUVASTATIN CALCIUM 40 MG PO SCH (21:00)
[2016-07-01] MEDS: NITROGLYCERIN OINT 1 INCH/GM PACKET TOPICAL SCH ×3 (01:24→11:59)
[2016-07-01] MEDS: SODIUM CHLORIDE 0.9% 1,000 ML IV SCH (04:33)
[2016-07-01] MEDS: INSULIN LISPRO (humaLOG) 300 UNIT/3 ML VIAL SQ SCH ×2 (06:04→11:59)
[2016-07-01 06:07] LABS: Glucose,Whole Blood 108 mg/dL (75-99)
[2016-07-01] MEDS: metFORMIN 500 MG TAB PO SCH (06:31)
[2016-07-01] MEDS: GLIMEPIRIDE 4 MG TAB PO SCH (06:31)
[2016-07-01 07:44] LABS: Cholesterol 111 mg/dL (<200); HDL Cholesterol 30 mg/dL (40-60); Triglycerides 251 mg/dL (<150)
[2016-07-01 08:03] VITALS: PULSE 85; TEMP 98.8
[2016-07-01] MEDS: ACARBOSE 25 MG TAB PO SCH (08:04)
[2016-07-01] MEDS: LISINOPRIL 2.5 MG TAB PO SCH (08:04)
[2016-07-01] MEDS: ISOSORBIDE MONONITRATE ER 30 MG TAB.ER.24H PO SCH (08:04)
[2016-07-01] MEDS: RANOLAZINE 500 MG TAB.ER.12H PO SCH (08:05)
[2016-07-01] MEDS: SERTRALINE 100 MG TAB PO SCH (08:05)
[2016-07-01] MEDS: METOPROLOL TARTRATE 50 MG TAB PO SCH (08:05)
[2016-07-01] MEDS: PRASUGREL 10 MG TAB PO SCH (08:05)
[2016-07-01] MEDS: FUROSEMIDE 40 MG TAB PO SCH (08:06)
[2016-07-01] MEDS: EZETIMIBE 10 MG TAB PO SCH (08:06)
[2016-07-01] MEDS: GABAPENTIN 300 MG CAP PO SCH (08:07)
[2016-07-01] MEDS: MUPIROCIN 2% OINT 22 GM TUBE TOPICAL SCH (08:08)
[2016-07-01] MEDS ORDERED: ASPIRIN 325 MG TAB PO SCH (09:00)
--- NOTE | 2016-07-01 11:03 | PN ---
40-year-old gentleman who is admitted to hospital with chest pain. He has had multiple prior hospitalizations with very similar symptomatology. He sees a oracle application consultant out of town. Since admission, he is doing well and has not had any further chest pain. His troponins have come down. On exam, comfortable at rest. Vital signs are stable. There is no jugular venous distention. Chest exam reveals good air entry bilaterally. Heart exam reveals first and second heart sounds. No gallop. Exam of extremities did not reveal edema. Peripheral pulses are felt. An echocardiogram revealed moderate to severe LV systolic dysfunction with an ejection fraction of 35 to 40%. ASSESSMENT: 1. Small non-ST segment elevation myocardial infarction. 2. Coronary artery disease, status post prior multiple angioplasties. 3. Hypertension. 4. Dyslipidemia. 5. History of cardiomyopathy. PLAN: Patient is stable clinically. He may be discharged home and arrange follow-up with his own [employer] application consultant, which he where he wants to pursue his further work-up anyway. I have not been able to get hold of his records.
[2016-07-01 11:22] LABS: Glucose,Whole Blood 163 mg/dL (75-99)
[2016-07-01 11:58] VITALS: BP 95/55; RESP 16
--- NOTE | 2016-07-01 15:21 | CDI ---
In responding to this query, please exercise your independent professional judgment. The [facility] Coding Staff and Clinical Documentation Specialists appreciate your assistance in clarifying documentation, maintaining compliance with coding guidelines, accurately documenting patients condition and capturing severity of illness. The fact that a question is asked does not imply that any particular answer is desired or expected. Communication forms are a method of clarifying documentation and are not made part of the Legal Health Record. Thank you in advance for your clarification. Last Revision, July [address] [facility] [address] Documentation Clarification Form Date: 07/01/2016 3:07:00 PM From: Katina Palomino Admit Date: 06/30/2016 2:08:00 AM Patient Name: Ti Dunham Visit Number: [id number] Dr. Jose M Gallagher Chronic CHF with EF 35-40% is documented in the H&P. History/Risk Factors: Hypertension DM type 2 CO Clinical Indicators: BNP: 872 on 06/30 Echocardiogram Results: on 06/30/2016 ef 35-40%, mild left ventricular hypertrophy Treatment: PO Lasix 40 mg daily Consults: Cardiology In your professional opinion, can you please clarify the acuity and type of CHF if known? Chronic Systolic CHF Chronic Diastolic CHF Chronic Systolic and Diastolic CHF Unable to determine Other, please specify Please document in your progress notes and discharge summary in order to capture severity of illness and risk of mortality. Include clinical findings that support your diagnosis. FYI: Press F11 to launch patient chart. Place X here if this finding has no clinical significance, is not applicable or if you are not able to provide any additional documentation. ELIZABETHD
--- NOTE | 2016-07-01 15:29 | CDI ---
In responding to this query, please exercise your independent professional judgment. The [facility] Coding Staff and Clinical Documentation Specialists appreciate your assistance in clarifying documentation, maintaining compliance with coding guidelines, accurately documenting patients condition and capturing severity of illness. The fact that a question is asked does not imply that any particular answer is desired or expected. Communication forms are a method of clarifying documentation and are not made part of the Legal Health Record. Thank you in advance for your clarification. Last Revision, March 2015 [address] [facility] [place] [address] Documentation Clarification Form Date: 07/01/2016 3:22:00 PM From: Katina Palomino Admit Date: 06/30/2016 2:08:00 AM Patient Name: Ti Dunham Visit Number: [id number] Dr. Jose M Gallagher/Dr aDvon Chambers Patient presents with a BUN/CR/GFR of: 28/1.40/56 History/Risk Factors: Hypertension DM type 2 Chronic CHF - PO Lasix Acute NSTEMI Clinical Indicators: Labs: see above Treatment: IV fluid bolus administered In order to capture the severity of condition, please clarify if the condition signifies: Acute renal failure Acute on chronic renal failure Chronic kidney disease (CKD) and please stage Stage 1 GFR >90 Stage 2 GFR 60-89 Stage 3 GFR 30-59 Stage 4 GFR 15-29 Stage 5 GFR <15 ESRD Unable to determine Other, specify Please document in your progress notes and discharge summary in order to capture severity of illness and risk of mortality. Include clinical findings that support your diagnosis. FYI: Press F11 to launch patient chart. Place X here if this finding has no clinical significance, is not applicable or if you are not able to provide any additional documentation. ELIZABETHD
--- NOTE | 2016-07-01 15:40 | CDI ---
In responding to this query, please exercise your independent professional judgment. The [facility] Coding Staff and Clinical Documentation Specialists appreciate your assistance in clarifying documentation, maintaining compliance with coding guidelines, accurately documenting patients condition and capturing severity of illness. The fact that a question is asked does not imply that any particular answer is desired or expected. Communication forms are a method of clarifying documentation and are not made part of the Legal Health Record. Thank you in advance for your clarification. Last Revision, March 2015 Fabio May [address] [facility] [place] [address] Documentation Clarification Form Date: 07/01/2016 3:32:00 PM From: Katina Palomino Admit Date: 06/30/2016 2:08:00 AM Patient Name: Ti Dunham Visit Number: [id number] Dr. Jose M Gallagher/Dr Davon Chambers The patient has diabetes mellitus type 2, as indicated in the H&P. Clinical Indicators : Uncontrolled diabetes mellitus with A1c of 8.5 per H&P Treatment: PO Precose In order to capture the severity of Illness and necessary documentation specificity, please clarify: DM type 2 with Hypoglycemia with or without coma DM type 2 with Hyperglycemia with or without coma DM type 2 with Hyperosmolarity Other condition (please specify) Please document in your progress notes and discharge summary in order to capture severity of illness and risk of mortality. Include clinical findings that support your diagnosis. FYI: Press F11 to launch patient chart. Place X here if this finding has no clinical significance, is not applicable or if you are not able to provide any additional documentation. ARMAND
--- NOTE | 2016-07-01 18:35 | P.DS ---
Providers Date of admission: 06/30/16 02:08 Attending physician: Jose M Gallagher Primary care physician: [facility] Course: This is a 40-year-old gentleman with history of CAD uncontrolled type 2 diabetes comes in to the hospital with complaints of chest pressure that is midsternal location. Patient stated he had similar complaints previously when he had an acute IL. Patient was admitted to the hospital for non-ST elevation IL. However soon after patient was noted to have no additional symptoms of chest pressure. Patient probably was admitted to the hospital multiple times in the last few weeks with complains of headache then severe back pain and abdominal pain. Patient does have a history of multiple psychiatric illnesses. There was some question of underlying depression. Patient stated that he has PTSD. Was seen by Dr. Rubio in the past. Currently denies any suicidal or homicidal ideations. Does state his mood is hopeless however does not have any new issues at home in the recent times. On the day of discharge patient is symptom-free Physical exam Gen. appearance oriented 3 in no distress Neck is supple no JVD Lungs good air entry clear to auscultation no rhonchi or wheezing Heart S1-S2 heard regular rate and rhythm no murmurs appreciated Abdomen is soft nontender no organomegaly bowel sounds are intact Neurologically cranial nerves II-12 grossly intact no focal motor or sensory deficits noted Skin no abnormalities appreciated Discharge diagnoses Non-Q-wave myocardial infarction History of CAD Uncontrolled diabetes without diabetic coma Hypomagnesemia Obstructive sleep apnea noncompliant with CPAP Compensated congestive heart failure with a EF of 35-40% Disability Hypertension Diabetic gastroparesis Psoriasis History of multiple MRSA infections due to poor hygiene. Patient Condition at Discharge: Stable Plan - Discharge Summary Discharge Medication List Nitroglycerin Sl Tabs [Nitrostat] 0.4 mg SUBLINGUAL Q5M PRN 10/13/13 [History] Sertraline HCl [Zoloft] 200 mg PO QAM 10/13/13 [History] Furosemide [Lasix] 40 mg PO DAILY 05/21/15 [History] metFORMIN HCL 1,000 mg PO AC-BID 07/03/15 [History] Omeprazole [PriLOSEC] 40 mg PO AC-SUPPER 08/13/15 [History] Baclofen [Lioresal] 10 mg PO AC-TID PRN 01/13/16 [History] Dulaglutide [Trulicity] 1.5 mg SQ FR 03/10/16 [History] Glimepiride 4 mg PO AC-BID 03/10/16 [History] Rosuvastatin Calcium 40 mg PO HS 05/05/16 [History] Isosorbide Mononitrate ER [Imdur] 90 mg PO DAILY #120 tab.er.24h 05/28/16 [Rx] Lisinopril [Zestril] 2.5 mg PO DAILY 06/01/16 [History] Acarbose [Precose] 25 mg PO AC-TID 06/09/16 [History] Gabapentin [Neurontin] 300 mg PO TID 06/09/16 [History] Ranolazine [Ranexa] 1,000 mg PO BID 06/09/16 [History] Aspirin 81 mg PO DAILY #30 chewable 06/21/16 [Rx] ARIPiprazole [Abilify] 15 mg PO HS 06/30/16 [History] Cholecalciferol [Vitamin D3] 2,000 unit PO DAILY 06/30/16 [History] Metoclopramide [Reglan] 10 mg PO TID 06/30/16 [History] Ondansetron Odt [Zofran ODT] 4 mg PO Q12HR PRN 06/30/16 [History] Primidone [Mysoline] 100 mg PO HS 06/30/16 [History] Propranolol [Inderal] 10 mg PO BID 06/30/16 [History] Ranitidine HCl 300 mg PO DAILY 06/30/16 [History] Prasugrel [Effient] 10 mg PO DAILY tab 07/01/16 [Rx] Follow up Appointment(s)/Referral(s): Angelika Matson MD [REFERRING] - 1 Week (Office to call and make appointment) Junie New MD [Primary Care Provider] - 07/04/16 10:00 am Discharge Disposition: HOME SELF-CARE
--- NOTE | 2016-07-04 09:43 | CDI ---
In responding to this query, please exercise your independent professional judgment. The [facility] Coding Staff and Clinical Documentation Specialists appreciate your assistance in clarifying documentation, maintaining compliance with coding guidelines, accurately documenting patients condition and capturing severity of illness. The fact that a question is asked does not imply that any particular answer is desired or expected. Communication forms are a method of clarifying documentation and are not made part of the Legal Health Record. Thank you in advance for your clarification. Last Revision, March 2015 Fabio May [address] [facility] [place] [address] Documentation Clarification Form Date: 07/04/2016 9:20:00 AM From: Katina Palomino Admit Date: 06/30/2016 2:08:00 AM Patient Name: Ti Dunham Visit Number: [id number] Dr. Davon Chambers 'Uncontrolled Diabetes, hyperglycemia with diabetic coma' was documented in an Addendum to your d/c summary. Patient history/risk factors DM type 2 Clinical Indicators: 'Uncontrolled diabetes mellitus with A1c of 8.5' per H&P Patient alert in ED Nursing documentation reports 'alert and oriented x3' Treatment: PO Precose In your professional opinion, can you please clarify? DM type 2 with Hyperglycemia with coma DM type 2 with Hyperglycemia without coma Other Unable to determine Please document in your progress notes and discharge summary in order to capture severity of illness and risk of mortality. Include clinical findings that support your diagnosis. FYI: Press F11 to launch patient chart. Place X here if this finding has no clinical significance, is not applicable or if you are not able to provide any additional documentation. ARMAND
[2016-07-06] MEDS ORDERED: NON-FORMULARY DRUG (Dulaglutide [Trulicity] 1.5 MG) SQ SCH (02:10)
--- NOTE | 2016-07-07 13:17 | CDI ---
In responding to this query, please exercise your independent professional judgment. The [facility] Coding Staff and Clinical Documentation Specialists appreciate your assistance in clarifying documentation, maintaining compliance with coding guidelines, accurately documenting patients condition and capturing severity of illness. The fact that a question is asked does not imply that any particular answer is desired or expected. Communication forms are a method of clarifying documentation and are not made part of the Legal Health Record. Thank you in advance for your clarification. Last Revision, March 2015 Fabio May [address] [facility] [place] [address] Documentation Clarification Form Date: 07/04/2016 9:20:00 AM From: Katina Palomino Admit Date: 06/30/2016 2:08:00 AM Patient Name: Ti Dunham Visit Number: [id number] Discharge Date: 07/01/2016 Dr. Davon Chambers 'Uncontrolled Diabetes, hyperglycemia with diabetic coma' was documented in an Addendum to your d/c summary. Patient history/risk factors DM type 2 Clinical Indicators: 'Uncontrolled diabetes mellitus with A1c of 8.5' per H&P Patient alert in ED Nursing documentation reports 'alert and oriented x3' Treatment: PO Precose In your professional opinion, can you please clarify? DM type 2 with Hyperglycemia with coma DM type 2 with Hyperglycemia without coma Other Unable to determine Please document in your progress notes and discharge summary in order to capture severity of illness and risk of mortality. Include clinical findings that support your diagnosis. FYI: Press F11 to launch patient chart. Place X here if this finding has no clinical significance, is not applicable or if you are not able to provide any additional documentation. ELIZABETHD
--- NOTE | 2016-07-08 12:42 | CDI ---
In responding to this query, please exercise your independent professional judgment. The [facility] Coding Staff and Clinical Documentation Specialists appreciate your assistance in clarifying documentation, maintaining compliance with coding guidelines, accurately documenting patients condition and capturing severity of illness. The fact that a question is asked does not imply that any particular answer is desired or expected. Communication forms are a method of clarifying documentation and are not made part of the Legal Health Record. Thank you in advance for your clarification. Last Revision, March 2015 Fabio May [address] [place] [address] Documentation Clarification Form Date: 07/04/2016 9:20:00 AM From: Katina Palomino Admit Date: 06/30/2016 2:08:00 AM Patient Name: Ti Dunham Visit Number: [id number] Discharge Date: 07/01/2016 Dr. Davon Chambers 'Uncontrolled Diabetes, hyperglycemia with diabetic coma' was documented in an Addendum to your d/c summary. Patient history/risk factors DM type 2 Clinical Indicators: 'Uncontrolled diabetes mellitus with A1c of 8.5' per H&P Patient alert in ED Nursing documentation reports 'alert and oriented x3' Treatment: PO Precose In your professional opinion, can you please clarify? DM type 2 with Hyperglycemia with coma DM type 2 with Hyperglycemia without coma Other Unable to determine Please document in your progress notes and discharge summary in order to capture severity of illness and risk of mortality. Include clinical findings that support your diagnosis. FYI: Press F11 to launch patient chart. Place X here if this finding has no clinical significance, is not applicable or if you are not able to provide any additional documentation. ELIZABETHD
== END 2016-07-01 15:24 | disposition home or self-care (01) | DRG 281 ==
LOC: EC 00:01 → 6SEL 02:08
PROVIDERS: ADMIT Internal Medicine; ATTEND Internal Medicine
DX: I21.4 Non-ST elevation (NSTEMI) myocardial infarction (principal); I13.0 Hypertensive heart and chronic kidney disease with heart failure and stage 1 through stage 4 chronic kidney disease, or unspecified chronic kidney disease; E11.65 Type 2 diabetes mellitus with hyperglycemia; K31.84 Gastroparesis; E83.42 Hypomagnesemia; E11.43 Type 2 diabetes mellitus with diabetic autonomic (poly)neuropathy; I50.22 Chronic systolic (congestive) heart failure; I25.10 Atherosclerotic heart disease of native coronary artery without angina pectoris; G47.33 Obstructive sleep apnea (adult) (pediatric); E78.5 Hyperlipidemia, unspecified; K29.50 Unspecified chronic gastritis without bleeding; I25.5 Ischemic cardiomyopathy; N18.3 Chronic kidney disease, stage 3 (moderate); I25.2 Old myocardial infarction; R51 Headache; M54.9 Dorsalgia, unspecified; K21.9 Gastro-esophageal reflux disease without esophagitis; G89.29 Other chronic pain; M19.90 Unspecified osteoarthritis, unspecified site; L40.9 Psoriasis, unspecified; F43.10 Post-traumatic stress disorder, unspecified; F32.9 Major depressive disorder, single episode, unspecified; F41.9 Anxiety disorder, unspecified; Z95.810 Presence of automatic (implantable) cardiac defibrillator; Z86.73 Personal history of transient ischemic attack (TIA), and cerebral infarction without residual deficits; Z86.14 Personal history of Methicillin resistant Staphylococcus aureus infection; Z83.3 Family history of diabetes mellitus; Z82.49 Family history of ischemic heart disease and other diseases of the circulatory system; Z82.0 Family history of epilepsy and other diseases of the nervous system; Z79.82 Long term (current) use of aspirin; Z91.19 Patient's noncompliance with other medical treatment and regimen; Z90.49 Acquired absence of other specified parts of digestive tract; Z91.5 Personal history of self-harm; Z87.01 Personal history of pneumonia (recurrent); Z87.828 Personal history of other (healed) physical injury and trauma; Z86.19 Personal history of other infectious and parasitic diseases; Z95.5 Presence of coronary angioplasty implant and graft; Z90.79 Acquired absence of other genital organ(s); Z79.84 Long term (current) use of oral hypoglycemic drugs; Z79.02 Long term (current) use of antithrombotics/antiplatelets; Z79.899 Other long term (current) drug therapy; Z88.6 Allergy status to analgesic agent; Z88.1 Allergy status to other antibiotic agents; Z91.041 Radiographic dye allergy status; Z88.5 Allergy status to narcotic agent; Z88.0 Allergy status to penicillin; Z91.013 Allergy to seafood; Z88.8 Allergy status to other drugs, medicaments and biological substances; Z91.048 Other nonmedicinal substance allergy status
CPT/HCPCS: 36415; 71020; 80053; 80061; 82150; 82550; 82553; 83036; 83690; 83735; 83880; 84484; 85025; 85610; 85730; 93005; 93306; 96365; 96375; 99291

== ENCOUNTER 2016-10-04 23:32 | Inpatient (IN) | payer MEDICARE, OTHER ==
[2016-10-05] MEDS ORDERED: NITROGLYCERIN OINT 1 INCH/GM PACKET TOPICAL ONE (01:00)
[2016-10-05] MEDS ORDERED: ASPIRIN 81 MG CHEW ONE (01:00)
[2016-10-05 01:20] LABS: Basophils % (A) 1 %; CH 26.5; CHCM 32.6; Eosinophils # (A) 0.2 k/uL (0-0.7); Eosinophils % (A) 4 %; HCT 36.1 % (39.0-53.0); HDW 3.09; HGB 11.9 gm/dL (13.0-17.5); Hypochromasia Slight; Luc # (Auto) 0.14; Luc % (Auto) 3; Lymphocytes # (A) 1.4 k/uL (1.0-4.8); Lymphocytes % (A) 29 %; MCH 26.9 pg (25.0-35.0); MCHC 33.1 g/dL (31.0-37.0); MCV 81.5 fL (80.0-100.0); Mean Platelet Volume 7.5; Monocytes # (A) 0.3 k/uL (0-1.0); Monocytes % (A) 6 %; Neutrophils # (A) 2.6 k/uL (1.3-7.7); Neutrophils % (A) 57 %; RBC 4.42 m/uL (4.30-5.90); WBC 4.6 k/uL (3.8-10.6); WBC (Perox) 4.31
[2016-10-05 01:36] LABS: ALT 27 U/L (21-72); AST 16 U/L (17-59); Alkaline Phosphatase 118 U/L (38-126); Anion Gap 9 mmol/L; Blood Urea Nitrogen 18 mg/dL (9-20); Calcium 9.6 mg/dL (8.4-10.2); Carbon Dioxide 23 mmol/L (22-30); Chloride 100 mmol/L (98-107); Glucose 363 mg/dL (74-99); Non-African American GFR(MDRD) >60 (>60 ml/min/1.73 sqM); Potassium 4.3 mmol/L (3.5-5.1); Sodium 132 mmol/L (137-145); Total Bilirubin 0.5 mg/dL (0.2-1.3); Total Protein 5.7 g/dL (6.3-8.2)
[2016-10-05 01:39] LABS: Prothrombin Time 10.1 sec (9.0-12.0)
[2016-10-05 01:57] LABS: Creatine Kinase MB 2.6 ng/mL (0.0-2.4); Troponin I 0.047 ng/mL (0.000-0.034)
[2016-10-05] MEDS ORDERED: HEPARIN SODIUM,PORCINE 5,000 UNIT/ML 1 ML VIAL IV ONE (02:29)
[2016-10-05] MEDS: NITROGLYCERIN SL TABS 0.4 MG TAB SUBLINGUAL PRN (02:39)
--- NOTE | 2016-10-05 02:56 | XR ---
EXAM: XR Chest, 2 Views CLINICAL HISTORY: Reason: CHEST PAIN TECHNIQUE: Frontal and lateral views of the chest. COMPARISON: 06/30/2016 FINDINGS: Stable left chest wall pacemaker. Heart size upper normal. Normal pulmonary vasculature. Lungs are clear. No pneumothorax or pleural effusion. No osseous abnormality. IMPRESSION: No evidence of acute cardiopulmonary disease
[2016-10-05] MEDS: HEPARIN SODIUM,PORCINE/D5W PMX 25,000 UNIT in DEXTROSE/WATER 1 500ML.BAG IV SCH ×2 (03:09→23:02)
[2016-10-05] MEDS ORDERED: NITROGLYCERIN OINT 1 INCH/GM PACKET TOPICAL SCH (06:00)
[2016-10-05 08:10] LABS: Creatine Kinase MB 2.1 ng/mL (0.0-2.4)
[2016-10-05 08:16] LABS: Troponin I 0.058 ng/mL (0.000-0.034)
[2016-10-05] MEDS: HEPARIN SODIUM,PORCINE 5,000 UNIT/ML 1 ML VIAL IV PRN ×2 (08:24→15:32)
[2016-10-05] MEDS ORDERED: ONDANSETRON ODT 4 MG TAB PO PRN (09:28)
[2016-10-05] MEDS ORDERED: BACLOFEN 10 MG TAB PO PRN (09:28)
[2016-10-05] MEDS: ACARBOSE 25 MG TAB PO SCH ×2 (10:18→17:19)
[2016-10-05] MEDS: METOCLOPRAMIDE 10 MG TAB PO SCH ×2 (10:18→17:19)
[2016-10-05] MEDS: RANOLAZINE 500 MG TAB.ER.12H PO SCH ×2 (10:18→23:06)
[2016-10-05] MEDS: FUROSEMIDE 40 MG TAB PO SCH (10:19)
[2016-10-05] MEDS: SERTRALINE 100 MG TAB PO SCH (10:19)
[2016-10-05] MEDS: ISOSORBIDE MONONITRATE ER 30 MG TAB.ER.24H PO SCH (10:19)
[2016-10-05] MEDS: CHOLECALCIFEROL 1,000 UNIT TAB PO SCH (10:20)
[2016-10-05] MEDS: LISINOPRIL 2.5 MG TAB PO SCH (10:20)
[2016-10-05] MEDS: metFORMIN 500 MG TAB PO SCH ×2 (10:20→17:18)
[2016-10-05] MEDS: PRASUGREL 10 MG TAB PO SCH (10:20)
[2016-10-05] MEDS: FAMOTIDINE 20 MG TAB PO SCH (10:21)
[2016-10-05] MEDS: GABAPENTIN 300 MG CAP PO SCH ×3 (10:21→23:07)
[2016-10-05] MEDS: GLIMEPIRIDE 4 MG TAB PO SCH ×2 (10:21→17:19)
[2016-10-05] MEDS: PROPRANOLOL 10 MG TAB PO SCH ×2 (10:21→23:06)
[2016-10-05 10:26] LABS: Glucose,Whole Blood 283 mg/dL (75-99)
[2016-10-05 13:16] LABS: Creatine Kinase MB 2.8 ng/mL (0.0-2.4); Troponin I 0.043 ng/mL (0.000-0.034)
[2016-10-05 14:42] LABS: Basophils % (A) 1 %; CH 26.2; CHCM 31.8; Eosinophils # (A) 0.1 k/uL (0-0.7); Eosinophils % (A) 3 %; HCT 37.4 % (39.0-53.0); HDW 3.04; HGB 12.2 gm/dL (13.0-17.5); Hypochromasia Slight; Luc # (Auto) 0.08; Luc % (Auto) 2; Lymphocytes # (A) 0.9 k/uL (1.0-4.8); Lymphocytes % (A) 22 %; MCH 26.8 pg (25.0-35.0); MCHC 32.6 g/dL (31.0-37.0); MCV 82.4 fL (80.0-100.0); Mean Platelet Volume 7.6; Monocytes # (A) 0.2 k/uL (0-1.0); Monocytes % (A) 4 %; Neutrophils # (A) 2.8 k/uL (1.3-7.7); Neutrophils % (A) 67 %; RBC 4.54 m/uL (4.30-5.90); RDW 15.2 % (11.5-15.5); WBC 4.2 k/uL (3.8-10.6); WBC (Perox) 4.41
[2016-10-05 14:58] VITALS: RESP 16
[2016-10-05 15:14] LABS: Anion Gap 10 mmol/L; Blood Urea Nitrogen 16 mg/dL (9-20); Calcium 9.4 mg/dL (8.4-10.2); Carbon Dioxide 27 mmol/L (22-30); Chloride 102 mmol/L (98-107); Glucose 263 mg/dL (74-99); Non-African American GFR(MDRD) >60 (>60 ml/min/1.73 sqM); Potassium 4.6 mmol/L (3.5-5.1); Sodium 139 mmol/L (137-145)
[2016-10-05 16:39] LABS: Glucose,Whole Blood 200 mg/dL (75-99)
[2016-10-05] MEDS: INSULIN LISPRO (humaLOG) 300 UNIT/3 ML VIAL SQ SCH ×2 (16:40→23:06)
[2016-10-05] MEDS: PANTOPRAZOLE 40 MG TABLET PO SCH (17:19)
[2016-10-05] MEDS ORDERED: TEMAZEPAM 15 MG CAP PO PRN (20:42)
[2016-10-05] MEDS ORDERED: ACETAMINOPHEN TAB 500 MG TAB PO PRN (20:42)
[2016-10-05] MEDS ORDERED: ALPRAZolam 0.25 MG TAB PO PRN (20:42)
[2016-10-05] MEDS ORDERED: ROSUVASTATIN CALCIUM 40 MG PO SCH (21:00)
[2016-10-05 21:29] LABS: Glucose,Whole Blood 355 mg/dL (75-99)
[2016-10-05] MEDS: PRIMIDONE 50 MG TAB PO SCH (23:06)
[2016-10-05] MEDS: ARIPiprazole 15 MG TAB PO SCH (23:06)
[2016-10-06 00:38] LABS: Hemoglobin A1C 9.6 % (4.2-6.1)
[2016-10-06 02:07] LABS: Glucose,Whole Blood 154 mg/dL (75-99)
[2016-10-06 05:38] LABS: Glucose,Whole Blood 171 mg/dL (75-99)
[2016-10-06 06:10] LABS: Basophils % (A) 1 %; Hypochromasia Slight
[2016-10-06 06:23] LABS: CH 26.3; CHCM 32.4; Eosinophils # (A) 0.2 k/uL (0-0.7); Eosinophils % (A) 4 %; HCT 34.1 % (39.0-53.0); HGB 11.7 gm/dL (13.0-17.5); Luc # (Auto) 0.08; Luc % (Auto) 2; Lymphocytes # (A) 1.1 k/uL (1.0-4.8); Lymphocytes % (A) 26 %; MCH 27.9 pg (25.0-35.0); MCHC 34.2 g/dL (31.0-37.0); MCV 81.6 fL (80.0-100.0); Mean Platelet Volume 7.3; Monocytes # (A) 0.4 k/uL (0-1.0); Monocytes % (A) 11 %; Neutrophils # (A) 2.4 k/uL (1.3-7.7); Neutrophils % (A) 58 %; RBC 4.18 m/uL (4.30-5.90); RDW 15.2 % (11.5-15.5); WBC 4.2 k/uL (3.8-10.6); WBC (Perox) 4.18
[2016-10-06] MEDS: metFORMIN 500 MG TAB PO SCH ×2 (06:54→16:26)
[2016-10-06] MEDS: METOCLOPRAMIDE 10 MG TAB PO SCH ×3 (06:54→16:26)
[2016-10-06] MEDS: INSULIN LISPRO (humaLOG) 300 UNIT/3 ML VIAL SQ SCH ×3 (06:54→17:30)
[2016-10-06] MEDS: ACARBOSE 25 MG TAB PO SCH ×3 (06:55→16:27)
[2016-10-06] MEDS: GLIMEPIRIDE 4 MG TAB PO SCH ×2 (06:55→16:27)
[2016-10-06 07:02] VITALS: PULSE 96
[2016-10-06 07:05] LABS: Calcium 9.1 mg/dL (8.4-10.2); Potassium 4.3 mmol/L (3.5-5.1)
--- NOTE | 2016-10-06 09:05 | P.CRDCN ---
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 According to the patient, he's been doing fairly well at home overall, he states that he is working a part-time job, and has been keeping himself fairly active. Yesterday the patient noticed some midsternal chest tightness earlier in the day, he states that he continued his daily as usual, tightness became worse as the day progressed. Patient states that on his arrival home, he laid down and the pain became quite severe in intensity and for this reason he went to the emergency room for further evaluation. According to the patient, his most recent cardiac catheterization was in May of [facility] as far as he recalls there is no significant blockage at that time. Blood pressure on arrival here 120/60 with a heart rate in the 90s, 98% on room air. Hemoglobin 11.7, platelet count 198, potassium 4.3 , BUN 21, creatinine 1.57. BNP level 777. Troponins 0.047, 0.058, 0.043. Cholesterol 151, triglycerides 283, LDL 15, HDL 79. EKG on arrival here shows atrial sensed V paced rhythm with underlying normal sinus rhythm. Repeat EKG shows normal sinus rhythm with nonspecific ST-T wave changes. Past Medical History Past Medical History: Coronary Artery Disease (CAD), Chest Pain / Angina, Heart Failure, CVA/TIA, Diabetes Mellitus, GERD/Reflux, Hyperlipidemia, Hypertension, Myocardial Infarction (MT), Osteoarthritis (OA), Pneumonia, Skin Disorder, Sleep Apnea/CPAP/BIPAP Additional Past Medical History / Comment(s): HX: Coronary artery disease with multiple vessel disease, ischemic cardiomyopathy, diabetic neuropathy bilateral hands and feet, hypertension hypertensive cardiovascular disease, chronic gastritis, chronic back pain, depression with hx of suicide attempts, GASTROPARESIS, PSORIASES,NIDDM type II. Last Myocardial Infarction Date:: 06/03/16 per pt. 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 Past Anesthesia/Blood Transfusion Reactions: No Reported Reaction Additional Past Anesthesia/Blood Transfusion Reaction / Comment(s): . Date of Last Stent Placement:: 06/03/16 Type of Cardiac Device: Biventricular Pacemaker, AICD Device Placement Date:: 09/19/15 Past Psychological History: Anxiety, Depression, PTSD Additional Psychological History / Comment(s): Several suicide attempts with use of insulin. PTSD- IN 2000- HIS 3 MONTH OLD SON IN HIS ARMS(CHILD WAS BORN 2 MONTHS PREMATURE). Pt states his depression is stable at this time and does not have any suicidal thoughts or plans. He is independent. PT ON DISABILTY MULTIFACTORIAL PER PT. Smoking Status: Never smoker Past Alcohol Use History: Rare Additional Past Alcohol Use History / Comment(s): no longer drinks Past Drug Use History: Marijuana Additional Drug Use History / Comment(s): NONE IN 15 YEARS has smoked marijuana - Past Family History Mother Family Medical History: Coronary Artery Disease (CAD), Myocardial Infarction (MT ) Additional Family Medical History / Comment(s): 7 MT and faulty heart valve. Pt does not know the age when mother had her MIs. Father History Unknown: Yes Additional Family Medical History / Comment(s): Does not know who father is Brother(s) Family Medical History: Congestive Heart Failure (CHF), Myocardial Infarction ( MT) Additional Family Medical History / Comment(s): Parkinsons. Pt does not know at what age his brother had a MT Patient has Family Medical History: No Reported History Additional Family Medical History / Comment(s): There is a strong family history for heart disease, hypertension, and diabetes. Medications and Allergies Home Medications Medication Instructions Recorded Confirmed Type Nitroglycerin Sl Tabs [Nitrostat] 0.4 mg SUBLINGUAL Q5M PRN 10/13/13 10/05/16 History Sertraline HCl [Zoloft] 200 mg PO QAM 10/13/13 10/05/16 History Furosemide [Lasix] 40 mg PO DAILY 05/21/15 10/05/16 History metFORMIN HCL 1,000 mg PO AC-BID 07/03/15 10/05/16 History Omeprazole [PriLOSEC] 40 mg PO AC-SUPPER 08/13/15 10/05/16 History Baclofen [Lioresal] 10 mg PO AC-TID PRN 01/13/16 10/05/16 History Dulaglutide [Trulicity] 1.5 mg SQ FR 03/10/16 10/05/16 History Glimepiride 4 mg PO AC-BID 03/10/16 10/05/16 History Rosuvastatin Calcium 40 mg PO HS 05/05/16 10/05/16 History Lisinopril [Zestril] 2.5 mg PO DAILY 06/01/16 10/05/16 History Acarbose [Precose] 25 mg PO AC-TID 06/09/16 10/05/16 History Gabapentin [Neurontin] 300 mg PO TID 06/09/16 10/05/16 History Ranolazine [Ranexa] 1,000 mg PO BID 06/09/16 10/05/16 History ARIPiprazole [Abilify] 15 mg PO HS 06/30/16 10/05/16 History Cholecalciferol [Vitamin D3] 2,000 unit PO DAILY 06/30/16 10/05/16 History Metoclopramide [Reglan] 10 mg PO TID 06/30/16 10/05/16 History Ondansetron Odt [Zofran ODT] 4 mg PO Q12HR PRN 06/30/16 10/05/16 History Primidone [Mysoline] 100 mg PO HS 06/30/16 10/05/16 History Propranolol [Inderal] 10 mg PO BID 06/30/16 10/05/16 History Ranitidine HCl 300 mg PO DAILY 06/30/16 10/05/16 History Allergies Allergy/AdvReac Type Severity Reaction Status Date / Time Penicillins Allergy Severe Rash/Hives Verified 10/05/16 07:32 meclizine Allergy Unknown Unknown Verified 10/05/16 07:32 erythromycin base AdvReac Severe Swelling Verified 10/05/16 07:32 [Erythromycin Base] shellfish derived AdvReac Severe Swelling Verified 10/05/16 07:32 cephalexin monohydrate AdvReac Mild Nausea & Verified 10/05/16 07:32 [From Keflex] Vomiting codeine AdvReac Unknown Swelling Verified 10/05/16 07:32 naproxen AdvReac Unknown Unknown Verified 10/05/16 07:32 acetaminophen [From [place]] AdvReac Rapid Verified 10/05/16 17:25 Heart Rate atorvastatin calcium AdvReac MUSCLE PAIN Verified 10/05/16 07:32 [From Lipitor] hydrocodone [From [place]] AdvReac Rapid Verified 10/05/16 17:25 Heart Rate Iodinated Contrast Media - AdvReac Unknown Verified 10/05/16 07:32 Oral and bird feces AdvReac Swelling Uncoded 06/30/16 00:11 sea food AdvReac Swelling Uncoded 06/30/16 00:11 Physical Exam Vitals: Vital Signs Temp Pulse Resp BP Pulse Ox 10/06/16 08:09 97.6 F 93 16 134/80 96 10/06/16 04:00 97.2 F L 96 16 120/67 97 10/06/16 00:00 100 16 123/93 98 10/05/16 20:00 97.4 F L 95 16 123/69 93 L 10/05/16 14:20 97.3 F L 92 16 119/68 98 Intake and Output 10/05/16 10/06/16 10/06/16 22:59 06:59 14:59 Intake Total 1634.281 178.537 201.975 Output Total 400 Balance 1634.281 -221.463 201.975 Intake: IV 240 Heparin Sodium,Porcine/ 240 D5w Pmx 25,000 unit In Dextrose/Water 1 500ml. bag @ 8.41 UNITS/KG/HR 20 .01 mls/hr IV .Q24H JAKE Rx#:[id number] Intake, IV Titration 394.281 178.537 201.975 Amount Heparin Sodium,Porcine/ 394.281 178.537 201.975 D5w Pmx 25,000 unit In Dextrose/Water 1 500ml. bag @ 8.41 UNITS/KG/HR 20 .01 mls/hr IV .Q24H JAKE Rx#:[id number] Oral 1000 Output: Urine 400 Other: Voiding Method Toilet Toilet Toilet Urinal Urinal Urinal # Voids 1 Weight 117.5 kg PHYSICAL EXAMINATION: HEENT: Head is atraumatic, normocephalic. Pupils equal, round. Neck is supple. There is no elevated jugular venous pressure. HEART EXAMINATION: Heart S1, S2 normal. No murmur or gallop heard. CHEST EXAMINATION: Lungs are clear to auscultation and precussion. No chest wall tenderness is noted on palpation or with deep breathing. ABDOMEN: Soft, nontender. Bowel sounds are heard. No organomegaly noted. EXTREMITIES: 2+ peripheral pulses with no evidence of peripheral edema and no calf tenderness noted. NEUROLOGIC patient is awake, alert and oriented -3. . Results 10/06/16 05:25 10/06/16 05:25 Cardiac Enzymes 10/05/16 Range/Units 11:50 CK-MB (CK-2) 2.8 H* (0.0-2.4) ng/mL Troponin I 0.043 H* (0.000-0.034) ng/mL Coagulation 10/05/16 10/05/16 10/06/16 Range/Units 14:26 21:25 07:12 APTT 27.9 34.4 H 33.4 H (22.0-30.0) sec Lipids 10/06/16 Range/Units 05:25 Triglycerides 283 H (<150) mg/dL Cholesterol 151 (<200) mg/dL HDL Cholesterol 79 H (40-60) mg/dL CBC 10/05/16 10/06/16 Range/Units 14:26 05:25 WBC 4.2 4.2 (3.8-10.6) k/uL RBC 4.54 4.18 L (4.30-5.90) m/uL Hgb 12.2 L 11.7 L (13.0-17.5) gm/dL Hct 37.4 L 34.1 L (39.0-53.0) % Plt Count 194 198 (150-450) k/uL Comprehensive Metabolic Panel 10/05/16 10/06/16 Range/Units 14:26 05:25 Sodium 139 140 (137-145) mmol/L Potassium 4.6 4.3 (3.5-5.1) mmol/L Chloride 102 102 (98-107) mmol/L Carbon Dioxide 27 25 (22-30) mmol/L BUN 16 21 H (9-20) mg/dL Creatinine 0.90 1.57 H (0.66-1.25) mg/dL Glucose 263 H 190 H (74-99) mg/dL Calcium 9.4 9.1 (8.4-10.2) mg/dL Current Medications Generic Name Dose Route Start Last Admin Trade Name Freq PRN Reason Stop Dose Admin Acarbose 25 mg 10/05/16 12:30 10/06/16 06:55 Precose PO 25 mg AC-TID JAKE Administration Acetaminophen 500 mg 10/05/16 20:42 Tylenol Tab PO Q6HR PRN Fever and/ or Mild Pain Alprazolam 0.25 mg 10/05/16 20:42 Xanax PO TID PRN Anxiety Aripiprazole 15 mg 10/05/16 21:00 10/05/16 23:06 Abilify PO 15 mg HS JAKE Administration Aspirin 325 mg 10/06/16 09:00 Aspirin PO DAILY JAKE Baclofen 10 mg 10/05/16 09:28 Lioresal PO AC-TID PRN Pain Cholecalciferol 2,000 unit 10/05/16 09:30 10/05/16 10:20 Vitamin D3 PO 2,000 unit DAILY JAKE Administration Famotidine 40 mg 10/05/16 09:30 10/05/16 10:21 Pepcid PO 40 mg DAILY JAKE Administration Furosemide 40 mg 10/05/16 09:30 10/05/16 10:19 Lasix PO 40 mg DAILY JAKE Administration Gabapentin 300 mg 10/05/16 09:30 10/05/16 23:07 Neurontin PO 300 mg TID JAKE Administration Glimepiride 4 mg 10/05/16 09:30 10/06/16 06:55 Amaryl PO 4 mg AC-BID JAKE Administration Heparin Sodium (Porcine) 0 unit 10/05/16 02:29 10/05/16 15:32 Heparin IV 4,000 unit Q6HR PRN Administration Low PTT Protocol Heparin Sodium/Dextrose 25,000 500 mls @ 20.01 mls/hr 10/05/16 02:30 08:14 unit/ IV Solution IV 20.38 units/kg/hr .Q24H JAKE 48.5 mls/hr Protocol Titration 8.41 UNITS/KG/HR Insulin Human Lispro 0 unit 10/05/16 17:30 10/06/16 06:54 Humalog SQ 2 unit ACHS JAKE Administration Protocol Isosorbide Mononitrate 90 mg 10/05/16 09:30 10/05/16 10:19 Imdur PO 90 mg DAILY JAKE Administration Lisinopril 2.5 mg 10/05/16 09:30 10/05/16 10:20 Zestril PO 2.5 mg DAILY JAKE Administration Metformin HCl 1,000 mg 10/05/16 09:30 10/06/16 06:54 Glucophage PO 1,000 mg AC-BID JAKE Administration Metoclopramide HCl 10 mg 10/05/16 12:30 10/06/16 06:54 Reglan PO 10 mg AC-TID JAKE Administration Nitroglycerin 0.4 mg 10/05/16 02:29 10/05/16 02:39 Nitrostat SUBLINGUAL 0.4 mg Q5M PRN Administration Chest Pain Non-Formulary Medication 1.5 mg 10/10/16 09:00 Dulaglutide [Trulicity] SQ FR JAKE Non-Formulary Medication 40 mg 10/05/16 21:00 Rosuvastatin Calcium [Rosuvastatin Calcium] PO HS JAKE Ondansetron HCl 4 mg 10/05/16 09:28 Zofran Odt PO Q12HR PRN Nausea And Vomiting Pantoprazole Sodium 40 mg 10/05/16 17:30 10/05/16 17:19 Protonix PO 40 mg AC-SUPPER JAKE Administration Prasugrel 10 mg 10/05/16 09:30 10/05/16 10:20 Effient PO 10 mg DAILY JAKE Administration Primidone 100 mg 10/05/16 21:00 10/05/16 23:06 Mysoline PO 100 mg HS JAKE Administration Propranolol HCl 10 mg 10/05/16 09:30 10/05/16 23:06 Inderal PO 10 mg BID JAKE Administration Ranolazine 1,000 mg 10/05/16 09:30 10/05/16 23:06 Ranexa PO 1,000 mg BID JAKE Administration Sertraline HCl 200 mg 10/05/16 09:30 10/05/16 10:19 Zoloft PO 200 mg QAM JAKE Administration Temazepam 15 mg 10/05/16 20:42 Restoril PO HS PRN Insomnia Intake and Output 05/10/06/16 10/06/16 22:59 06:59 14:59 Intake Total 1634.281 178.537 201.975 Output Total 400 Balance 1634.281 -221.463 201.975 Intake: IV 240 Heparin Sodium,Porcine/ 240 D5w Pmx 25,000 unit In Dextrose/Water 1 500ml. bag @ 8.41 UNITS/KG/HR 20 .01 mls/hr IV .Q24H JAKE Rx#:[id number] Intake, IV Titration 394.281 178.537 201.975 Amount Heparin Sodium,Porcine/ 394.281 178.537 201.975 D5w Pmx 25,000 unit In Dextrose/Water 1 500ml. bag @ 8.41 UNITS/KG/HR 20 .01 mls/hr IV .Q24H JAKE Rx#:[id number] Oral 1000 Output: Urine 400 Other: Voiding Method Toilet Toilet Toilet Urinal Urinal Urinal # Voids 1 Weight 117.5 kg 10/06/16 05:25 10/06/16 05:25 EKG Interpretations (text) EKG shows an a sensed V paced rhythm with underlying normal sinus rhythm Assessment and Plan Plan: Assessment and plan #1 symptoms of midsternal chest tightness and heaviness, EKG shows an a sensed V paced rhythm with underlying normal sinus rhythm, no acute changes noted. Troponins 0.047, 0.058, 0.043. #2 known history of coronary artery disease with prior multiple stent placements. Most recent cardiac catheterization was performed in May of this year which did not reveal any significant obstructive coronary artery disease. #3 severe ischemic cardiomyopathy with prior AICD #4 hypertension #5 hyperlipidemia #6 diabetes #7 acute on chronic renal failure #8 prior TIA #9 sleep apnea Plan We will hold the patient's Lasix today, check creatinine in the morning. Echocardiogram with Doppler study performed in June of this year revealed an ejection fraction of 35-40%. We will also obtain records of patient's most recent cardiac catheterization at [facility]. Decrease aspirin to 81 mg daily. Continue Effient. Continue ROWAN inhibitor and beta ravinder. Further recommendations to follow. DNP note has been reviewed, I agree with a documented findings and plan of care. Patient was seen and examined.
[2016-10-06] MEDS: PROPRANOLOL 10 MG TAB PO SCH ×2 (11:15→21:07)
[2016-10-06] MEDS: CHOLECALCIFEROL 1,000 UNIT TAB PO SCH (11:15)
[2016-10-06] MEDS: SERTRALINE 100 MG TAB PO SCH (11:15)
[2016-10-06] MEDS: PRASUGREL 10 MG TAB PO SCH (11:15)
[2016-10-06] MEDS: RANOLAZINE 500 MG TAB.ER.12H PO SCH ×2 (11:15→21:07)
[2016-10-06] MEDS: LISINOPRIL 2.5 MG TAB PO SCH (11:16)
[2016-10-06] MEDS: ASPIRIN 325 MG TAB PO SCH ×2 (11:16→19:44)
[2016-10-06] MEDS: ISOSORBIDE MONONITRATE ER 30 MG TAB.ER.24H PO SCH (11:16)
[2016-10-06] MEDS: FAMOTIDINE 20 MG TAB PO SCH (11:16)
[2016-10-06] MEDS: GABAPENTIN 300 MG CAP PO SCH ×3 (11:16→21:07)
[2016-10-06] MEDS: FUROSEMIDE 40 MG TAB PO SCH ×2 (11:17→19:44)
[2016-10-06 11:23] LABS: Glucose,Whole Blood 256 mg/dL (75-99)
--- NOTE | 2016-10-06 12:01 | HP ---
DATE OF ADMISSION: 10/05/2016 CHIEF COMPLAINT: Chest pain. HISTORY OF PRESENT ILLNESS: This 40-year-old gentleman with a past medical history of multiple medical problems, CAD, history of CHF, history of CVA, TIA, diabetes mellitus type 2, GERD, hypertension, hyperlipidemia, myocardial infarction, DJD, sleep apnea, being followed by Dr. Junie Clay in the outpatient setting, has also had multiple cardiac procedures previously including stents. The patient had multiple admissions also. The last admission was also in [facility]. SAVANNAH was also done. 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 Currently the patient is complaining of chest pain in the anterior part of the chest. The patient came to [facility] and was admitted for further evaluation. EKG showed ST-T changes which are rather old, according to Cardiology. Of note, the troponins is also indeterminate at 0.05 and 0.043. There is no history of fever or chills. No history of headache or loss of consciousness. No history of radiation of pain or pain associated with any exertion. PAST MEDICAL HISTORY: History of coronary artery disease with multiple procedures, history of congestive heart failure, history of CVA/TIA, diabetes mellitus type 2, GERD, hypertension, hyperlipidemia, history of cardiomyopathy, history of ischemic cardiomegaly, diabetic neuropathy, bilateral hands and feet. Medications prior to medications include/home medications are: 1. Metformin 1000 mg with meals b.i.d. 2. Zoloft to 200 mg a.m. 4. Ranexa 1000 mg p.o. b.i.d. 5. Dilantin 300 mg p.o. daily. 6. Inderal 10 mg p.o. b.i.d. 7. Mysoline 100 mg at bedtime. 9. Zofran 4 mg p.o. b.i.d. p.r.n. 10. Prilosec 40 mg with supper. 12. Reglan 10 mg p.o. t.i.d. 13. Zestril 2.5 mg p.o. daily. 15. Neurontin 300 mg p.o. t.i.d. 16. IV Lasix 40 mg p.o. daily. 18. Vitamin D3, 2000 daily. 19. Lioricet 10 mg p.o. a.c. t.i.d. p.r.n. 20. Aspirin 81 mg p.o. daily. 21. Precose 25 mg with meals t.i.d. 22. Abilify 50 mg p.o. at bedtime. ALLERGIES: PENICILLIN, MYSOLINE, AZITHROMYCIN, SHELLFISH, CEPHALEXIN, CODEINE, NAPROSYN, NORCO, LIPITOR, IODINATED CONTRAST DYE, SEAFOOD. FAMILY HISTORY: History of coronary artery disease and myocardial infarction in the family. SOCIAL HISTORY: No history of smoking, no history of alcohol. REVIEW OF SYSTEMS: ENT: No diminishing vision or hearing. CARDIOVASCULAR: As mentioned earlier. GI: Nausea. : No dysuria. NERVOUS SYSTEM: No focal deficits. MUSCULOSKELETAL: As mentioned earlier. ENDOCRINE: Diabetes type 2 and multiple complications. CONSTITUTIONAL: As mentioned. DERMATOLOGY: As mentioned. PSYCH: As mentioned. PHYSICAL EXAMINATION: GENERAL: Alert, oriented x3. VITAL SIGNS: Pulse 92, blood pressure 119/68, respirations 16, temperature 97.3, pulse 98% on room AIR. HEENT: Conjunctivae normal. Oral mucosa moist. NECK: No JVD or carotid bruits. No lymph node enlargement. CARDIOVASCULAR: S1 and S2, muffled. No S3 or S4. LUNGS: Breath sounds diminished in the bases. Few scattered rhonchi. No crackles. ABDOMEN: Soft, nontender. No mass palpable. LEGS: No edema. NERVOUS SYSTEM: Higher functions as mentioned. Moves all limbs. No focal motor or sensory deficits. LYMPHATICS: No lymph node palpable in the neck, axillae, groin. LABS: At this time show WBC 4.0, hemoglobin is 12.2. Accu-Cheks noted. Troponins noted. ASSESSMENT: 1. Chest pain, possible unstable angina. 2. Troponin 0.052, indeterminate, rule out acute non-ST segment-elevation myocardial infarction. 3. History of coronary artery disease with myocardial infarction, multiple procedures and stents. 4. Diabetes mellitus type 2. 5. Ischemic cardiomyopathy. 6. Congestive heart failure with chronic systolic dysfunction, ejection fraction 35% to 40%. 7. Anemia, normocytic anemia of chronic disease. 8. History of coronary artery disease. 9. History of congestive heart failure. 10. History of cerebrovascular accident, transient ischemic attack. 11. History of diabetes mellitus type 2. 12. History of gastroesophageal reflux disease dyspnea. 13. History of hypertension. 14. History of hyperlipidemia. 15. Degenerative joint disease. 16. History of pneumonia. 17. History of sleep apnea. 18. History of diabetic peripheral neuropathy, bilateral hands and feet. 19. Hypertensive heart disease. 20. Chronic gastritis. 21. Degenerative joint disease. 22. History of depression with suicidal ideation. 23. History of gastroparesis. 24. History of psoriasis. 25. History of automatic implantable cardioverter defibrillator. 26. History of coronary artery disease and stents. 27. History of anxiety, depression, posttraumatic stress disorder. 28. History of THC of EtOH remotely. 29. FULL CODE. RECOMMENDATIONS AND DISCUSSION: In this 40-year-old gentleman who presented with multiple complex medical issues, we will monitor the patient closely. Continue the current medications and symptomatic treatment. Otherwise unstable angina protocol. Resume the home medications. Monitor blood sugars closely. Cardiology consultation. Guarded prognosis because of multiple complex medical issues. Further recommendations to follow. MTDD
[2016-10-06 13:24] VITALS: BMI 41.8
--- NOTE | 2016-10-06 14:09 | DS ---
DATE OF ADMISSION: 10/05/2016 DATE OF DISCHARGE: FINAL DIAGNOSES: 1. Chest pain, possible unstable angina versus acute non-ST segment elevation myocardial infarction with a troponin of 0.052. 2. Coronary artery disease, history of myocardial infarction with multiple procedures and stents. 3. Diabetes mellitus type 2. 4. Ischemic cardiomyopathy. 5. Congestive heart failure with chronic systolic dysfunction, ejection fraction 35% to 40%. 6. Anemia, normocytic anemia of chronic disease. 7. History of coronary artery disease. 8. History of congestive heart failure. 9. History of cerebrovascular accident, transient ischemic attack. 10. History of diabetes mellitus type 2. 11. History of gastroesophageal reflux disease. 12. Hypertension. 13. History of hyperlipidemia. 14. History of degenerative joint disease. 15. History of pneumonia. 16. History of sleep apnea. 17. History of diabetic peripheral neuropathy bilateral hands and feet. 18. Hypertension, heart disease. 19. Chronic gastritis. 20. History of degenerative joint disease. 21. History of depression and suicidal ideation. 22. History of gastroparesis and psoriasis. 23. AICD. 24. History of coronary artery disease, stent. 25. History of anxiety, depression, posttraumatic stress disorder. 26. History of THC and EtOH remotely. 27. FULL CODE. DISCHARGE DISPOSITION: The patient will be discharged in a stable condition with guarded prognosis. Total time taken 35 minutes. Patient will be transferred to [facility]. HISTORY OF PRESENT ILLNESS: This 40-year-old gentleman with a past medical history of multiple medical problems was admitted with chest pain, troponins were found to be elevated up to 0.052. Cardiology saw the patient and recommended further evaluation, including interventional procedures. 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 On exam, vitals are stable. CARDIOVASCULAR SYSTEM: S1, S2, muffled. ABDOMEN: Soft. NERVOUS SYSTEM: No focal deficits. The current medications are as follows: 1. Precose 25 mg a.c. t.i.d. 2. Tylenol 500 mg q.6 p.r.n. 3. Xanax 0.25 t.i.d. 4. Abilify 15 mg q.h.s. 5. Aspirin 81 mg p.o. daily. 6. Lioresal 10 mg a.c. t.i.d. 7. Vitamin D3 two thousand daily. 8. Pepcid 40 mg daily. 9. Neurontin 300 mg p.o. t.i.d. 10. Amaryl 4 mg b.i.d. 11. Heparin drip IV. 12. Lispro scale. 13. Imdur 90 mg p.o. daily. 14. Zestril 2.5 mg p.o. daily. 15. Glucophage 1000 mg p.o. b.i.d. 16. Reglan 10 mg a.c. t.i.d. 17. Nitrostat 0.4 sublingual p.r.n. 18. Crestor 40 mg q.h.s. 19. Trulicity 1.5 mg Thursday. 20. Zofran 4 mg p.o. b.i.d. 21. Protonix 40 mg b.i.d. 22. Effient 10 mg p.o. daily. 23. Mysoline 100 mg q.h.s. 24. Inderal 10 mg b.i.d. 25. Ranexa 1000 mg p.o. daily. 26. Zoloft 200 mg q.a.m. 27. Restoril 15 mg q.h.s. p.r.n. Once again, the patient will be discharged in a stable condition with guarded prognosis. Follow up with Dr. Junie New as advised.
[2016-10-06] MEDS: NITROGLYCERIN SL TABS 0.4 MG TAB SUBLINGUAL PRN ×3 (16:25→16:49)
[2016-10-06] MEDS: PANTOPRAZOLE 40 MG TABLET PO SCH (16:26)
[2016-10-06 16:46] LABS: Glucose,Whole Blood 291 mg/dL (75-99)
[2016-10-06 16:57] VITALS: BP 128/62; TEMP 97.5
[2016-10-06 18:54] LABS: Appearance,Urine Clear (Clear); Bacteria,Urine Rare /hpf; Bilirubin,Urine Negative (Negative); Glucose,Urine (UA) 4+ (Negative); Ketones,Urine Negative (Negative); Leukocyte Esterase,Urine Negative (Negative); Nitrite,Urine Negative (Negative); PH, Urine 5.5 (5.0-8.0); Particle Count 406; Protein,Urine Trace (Negative); RBC,Urine 1 /hpf (0-5); Specific Gravity,Urine 1.011 (1.001-1.035); UA Billing (MACRO vs. MICRO) MICRO; Urobilinogen,Urine <2.0 mg/dL (<2.0); WBC,Urine <1 /hpf (0-5)
--- NOTE | 2016-10-06 19:41 | PN ---
DATE OF SERVICE: 10/06/2016 This 40-year-old gentleman admitted with chest pain is being closely monitored. Troponins are indeterminate. Cardiology recommended cardiac catheterization. The patient was seen by web master in [place] area. The patient complaining of persistent chest pain. On exam, alert and oriented x2. Pulse is 93, blood pressure 135/80, respirations 16. Temperature 97.6, pulse ox 97% on room air. HEENT: Conjunctivae normal. NECK: No jugular venous distention. CARDIOVASCULAR: S1, S2 muffled. RESPIRATORY: Breath sounds diminished at the bases. A few scattered rhonchi. No crackles. ABDOMEN: Soft. CENTRAL NERVOUS SYSTEM: No focal deficits. Labs are creatinine 1.5, hemoglobin 11.7. ASSESSMENT: 1. Chest pain, possible unstable angina. 2. Possible acute non-ST segment elevation myocardial infarction with a troponin 0.052. 3. History of coronary artery disease myocardial infarction multiple procedures and stents. 4. Diabetes mellitus type 2. 5. Ischemic cardiomyopathy. 6. Congestive heart failure with chronic systolic dysfunction, ejection fraction 35 to 40%. 7. Anemia, normocytic anemia of chronic disease. 8. History of coronary artery disease. 9. History of congestive heart failure, history of cerebrovascular accident, transient ischemic attack. 10. History of diabetes mellitus type 2. 11. History of gastroesophageal reflux disease. 12. Hypertension, essential. 13. Hyperlipidemia. 14. History of degenerative joint disease. 15. History of pneumonia. 16. History of sleep apnea. 17. History of diabetic peripheral neuropathy bilateral hands and feet. 18. Hypertensive heart disease. 19. Chronic gastritis. 20. Degenerative joint disease. 21. History of depression/suicidal ideations. 22. History of gastroparesis. 23. History of psoriasis. 24. History of AICD. 25. History of coronary artery disease and stent. 26. Anxiety, depression, posttraumatic stress disorder. 27. History of THC and ETOH, remote. 28. FULL CODE. RECOMMENDATIONS AND DISCUSSION: Continue current medications, continue with monitoring. Symptomatic treatment. Otherwise, at this time, I recommend monitor closely. Otherwise, discussed with cardiology. Recommended to transfer the patient Cardiology further evaluation and evaluation including interventional procedures. Prognosis guarded. See orders for further details. MTDD
[2016-10-06 20:40] LABS: Glucose,Whole Blood 192 mg/dL (75-99)
[2016-10-06] MEDS: ARIPiprazole 15 MG TAB PO SCH (21:06)
[2016-10-06] MEDS: PRIMIDONE 50 MG TAB PO SCH (21:06)
[2016-10-07] MEDS ORDERED: ASPIRIN 81 MG CHEW PO SCH (09:00)
[2016-10-10] MEDS ORDERED: NON-FORMULARY DRUG (Dulaglutide [Trulicity] 1.5 MG) SQ SCH (09:00)
== END 2016-10-06 21:30 | disposition short-term general hospital (02) | DRG 281 ==
LOC: EC 23:32 → 6SEL 10-05 02:40
PROVIDERS: ADMIT Hospitalist; ATTEND Hospitalist
DX: I25.110 Atherosclerotic heart disease of native coronary artery with unstable angina pectoris (principal); I21.4 Non-ST elevation (NSTEMI) myocardial infarction; I13.0 Hypertensive heart and chronic kidney disease with heart failure and stage 1 through stage 4 chronic kidney disease, or unspecified chronic kidney disease; N17.9 Acute kidney failure, unspecified; I50.22 Chronic systolic (congestive) heart failure; E11.22 Type 2 diabetes mellitus with diabetic chronic kidney disease; E11.42 Type 2 diabetes mellitus with diabetic polyneuropathy; E11.43 Type 2 diabetes mellitus with diabetic autonomic (poly)neuropathy; K31.84 Gastroparesis; F41.9 Anxiety disorder, unspecified; D63.8 Anemia in other chronic diseases classified elsewhere; E78.5 Hyperlipidemia, unspecified; F32.9 Major depressive disorder, single episode, unspecified; F43.10 Post-traumatic stress disorder, unspecified; G47.30 Sleep apnea, unspecified; I25.2 Old myocardial infarction; I25.5 Ischemic cardiomyopathy; K21.9 Gastro-esophageal reflux disease without esophagitis; K29.50 Unspecified chronic gastritis without bleeding; M19.90 Unspecified osteoarthritis, unspecified site; N18.9 Chronic kidney disease, unspecified; G89.29 Other chronic pain; L40.9 Psoriasis, unspecified; M54.9 Dorsalgia, unspecified; Z79.82 Long term (current) use of aspirin; Z79.84 Long term (current) use of oral hypoglycemic drugs; Z79.899 Other long term (current) drug therapy; Z95.810 Presence of automatic (implantable) cardiac defibrillator; Z95.5 Presence of coronary angioplasty implant and graft; Z88.5 Allergy status to narcotic agent; Z88.0 Allergy status to penicillin; Z88.8 Allergy status to other drugs, medicaments and biological substances; Z88.1 Allergy status to other antibiotic agents; Z91.041 Radiographic dye allergy status; Z82.49 Family history of ischemic heart disease and other diseases of the circulatory system
CPT/HCPCS: 36415; 71020; 80048; 80053; 80061; 80306; 81001; 82550; 82553; 83036; 83880; 84484; 85025; 85610; 85730; 93005

== ENCOUNTER 2016-10-20 12:18 | Inpatient (IN) | payer MEDICARE, OTHER ==
[2016-10-20] MEDS ORDERED: ASPIRIN 81 MG CHEW PO STA (12:41)
[2016-10-20] MEDS ORDERED: NITROGLYCERIN OINT 1 INCH/GM PACKET TOPICAL STA (12:41)
--- NOTE | 2016-10-20 12:49 | ED ---
General Adult HPI - General Chief complaint: Shortness of Breath Stated complaint: Difficulty Breathing Time Seen by Provider: 10/20/16 12:25 Source: patient, RN notes reviewed Mode of arrival: ambulatory Limitations: no limitations - History of Present Illness Initial comments: This is a 40-year-old male who presents to the emergency department complaining of chest heaviness and difficulty breathing. Patient states she's had multiple heart attacks multiple stents and has a defibrillator in place. Patient states is also a diabetic with high cholesterol and high blood pressure. Patient states it started approximately an hour ago while resting at work. Patient denies any fever chills or cough. Patient denies abdominal pain. Patient denies any nausea vomiting diarrhea. Patient denies diaphoresis. Patient states this is not typical of his chest pain. Patient denies being lightheaded dizzy or having any near syncopal episodes. - Related Data Home Medications Medication Instructions Recorded Confirmed Nitroglycerin Sl Tabs [Nitrostat] 0.4 mg SUBLINGUAL Q5M PRN 10/13/13 10/20/16 Sertraline HCl [Zoloft] 200 mg PO QAM 10/13/13 10/20/16 Furosemide [Lasix] 40 mg PO DAILY 05/21/15 10/20/16 metFORMIN HCL 1,000 mg PO AC-BID 07/03/15 10/20/16 Omeprazole [PriLOSEC] 40 mg PO HS 08/13/15 10/20/16 Baclofen [Lioresal] 10 mg PO AC-TID PRN 01/13/16 10/20/16 Dulaglutide [Trulicity] 1.5 mg SQ FR 03/10/16 10/20/16 Glimepiride 4 mg PO AC-BID 03/10/16 10/20/16 Rosuvastatin Calcium 40 mg PO HS 05/05/16 10/20/16 Lisinopril [Zestril] 2.5 mg PO DAILY 06/01/16 10/20/16 Acarbose [Precose] 25 mg PO AC-TID 06/09/16 10/20/16 Gabapentin [Neurontin] 300 mg PO TID 06/09/16 10/20/16 Ranolazine [Ranexa] 1,000 mg PO BID 06/09/16 10/20/16 ARIPiprazole [Abilify] 15 mg PO HS 06/30/16 10/20/16 Cholecalciferol [Vitamin D3] 2,000 unit PO DAILY 06/30/16 10/20/16 Ondansetron Odt [Zofran ODT] 4 mg PO Q12HR PRN 06/30/16 10/20/16 Primidone [Mysoline] 100 mg PO HS 06/30/16 10/20/16 Ranitidine HCl 300 mg PO DAILY 06/30/16 10/20/16 Loperamide [Imodium] 4 mg PO DAILY PRN 10/20/16 10/20/16 Metoprolol Tartrate 50 mg PO BID 10/20/16 10/20/16 Previous Rx's Medication Instructions Recorded Aspirin 81 mg PO DAILY #30 chewable 06/21/16 Prasugrel [Effient] 10 mg PO DAILY tab 07/01/16 Allergies Allergy/AdvReac Type Severity Reaction Status Date / Time Penicillins Allergy Severe Rash/Hives Verified 10/20/16 13:40 meclizine Allergy Unknown Unknown Verified 10/20/16 13:40 erythromycin base AdvReac Severe Swelling Verified 10/20/16 13:40 [Erythromycin Base] shellfish derived AdvReac Severe Swelling Verified 10/20/16 13:40 cephalexin monohydrate AdvReac Mild Nausea & Verified 10/20/16 13:40 [From Keflex] Vomiting codeine AdvReac Unknown Swelling Verified 10/20/16 13:40 naproxen AdvReac Unknown Unknown Verified 10/20/16 13:40 acetaminophen [From [place]] AdvReac Rapid Verified 10/20/16 13:40 Heart Rate atorvastatin calcium AdvReac MUSCLE PAIN Verified 10/20/16 13:40 [From Lipitor] hydrocodone [From [place]] AdvReac Rapid Verified 10/20/16 13:40 Heart Rate Iodinated Contrast Media - AdvReac Unknown Verified 10/20/16 13:40 Oral and bird feces AdvReac Swelling Uncoded 10/20/16 12:29 sea food AdvReac Swelling Uncoded 10/20/16 12:29 Review of Systems ROS Statement: Those systems with pertinent positive or pertinent negative responses have been documented in the HPI. ROS Other: All systems not noted in ROS Statement are negative. Past Medical History Past Medical History: Coronary Artery Disease (CAD), Chest Pain / Angina, Heart Failure, CVA/TIA, Diabetes Mellitus, GERD/Reflux, Hyperlipidemia, Hypertension, Myocardial Infarction (IA), Osteoarthritis (OA), Pneumonia, Skin Disorder, Sleep Apnea/CPAP/BIPAP Additional Past Medical History / Comment(s): HX: Coronary artery disease with multiple vessel disease, ischemic cardiomyopathy, diabetic neuropathy bilateral hands and feet, hypertension hypertensive cardiovascular disease, chronic gastritis, chronic back pain, depression with hx of suicide attempts, GASTROPARESIS, PSORIASES,NIDDM type II. Last Myocardial Infarction Date:: 06/03/16 per pt. 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 Past Anesthesia/Blood Transfusion Reactions: No Reported Reaction Additional Past Anesthesia/Blood Transfusion Reaction / Comment(s): . Date of Last Stent Placement:: 06/03/16 Type of Cardiac Device: Biventricular Pacemaker, AICD Device Placement Date:: 09/19/15 Past Psychological History: Anxiety, Depression, PTSD Additional Psychological History / Comment(s): Several suicide attempts with use of insulin. PTSD- IN 2000- HIS 3 MONTH OLD SON IN HIS ARMS(CHILD WAS BORN 2 MONTHS PREMATURE). Pt states his depression is stable at this time and does not have any suicidal thoughts or plans. He is independent. PT ON DISABILTY MULTIFACTORIAL PER PT. Smoking Status: Never smoker Past Alcohol Use History: None Reported Additional Past Alcohol Use History / Comment(s): no longer drinks Past Drug Use History: None Reported Additional Drug Use History / Comment(s): NONE IN 15 YEARS has smoked marijuana - Past Family History Mother Family Medical History: Coronary Artery Disease (CAD), Myocardial Infarction (IA ) Additional Family Medical History / Comment(s): 7 IA and faulty heart valve. Pt does not know the age when mother had her MIs. Father History Unknown: Yes Additional Family Medical History / Comment(s): Does not know who father is Brother(s) Family Medical History: Congestive Heart Failure (CHF), Myocardial Infarction ( IA) Additional Family Medical History / Comment(s): Parkinsons. Pt does not know at what age his brother had a IA Patient has Family Medical History: No Reported History Additional Family Medical History / Comment(s): There is a strong family history for heart disease, hypertension, and diabetes. General Exam - General Exam Comments Initial Comments: GENERAL: Patient is well-developed and well-nourished. Patient is nontoxic and well- hydrated and is in mild distress. ENT: Neck is soft and supple. No significant lymphadenopathy is noted. Oropharynx is clear. Moist mucous membranes. Neck has full range of motion without eliciting any pain. EYES: The sclera were anicteric and conjunctiva were pink and moist. Extraocular movements were intact and pupils were equal round and reactive to light. Eyelids were unremarkable. PULMONARY: Unlabored respirations. Good breath sounds bilaterally. No audible rales rhonchi or wheezing was noted. CARDIOVASCULAR: There is a regular rate and rhythm without any murmurs gallops or rubs. ABDOMEN: Soft and nontender with normal bowel sounds. No palpable organomegaly was noted. There is no palpable pulsatile mass. SKIN: Skin is clear with no lesions or rashes and otherwise unremarkable. NEUROLOGIC: Patient is alert and oriented x3. Cranial nerves II through XII are grossly intact. Motor and sensory are also intact. Normal speech, volume and content. Symmetrical smile. MUSCULOSKELETAL: Normal extremities with adequate strength and full range of motion. No lower extremity swelling or edema. No calf tenderness. LYMPHATICS: No significant lymphadenopathy is noted PSYCHIATRIC: Normal psychiatric evaluation. Normal interpersonal interactions appears functionally intact in deals appropriately with others. No signs of depression. No signs of anxiety. Limitations: no limitations Course Vital Signs 10/20/16 10/20/16 12:25 13:16 Temperature 97.6 F Pulse Rate 72 Pulse Rate [ 74 Bilateral Team Guide ] Respiratory 20 20 Rate Blood Pressure 98/52 O2 Sat by Pulse 97 Oximetry Medical Decision Making - Medical Decision Making EKG shows paced rhythm at 71 bpm IN interval is on a 56 QRS is 92 QT interval is 422 QTC is 458. Patient's EKG shows no ST segment elevation or depression. Chest x-ray shows no acute abnormality. Patient had elevated troponins I started the patient on heparin because they believe he was having unstable angina. I spoke with his primary medical care doctor admitted the patient I consult cardiology and continue the heparin has been Nitropaste on the floor. - Lab Data Result diagrams: 10/20/16 13:00 10/20/16 13:00 Lab Results 10/20/16 10/20/16 10/20/16 Range/Units 13:00 13:00 13:00 WBC 4.8 (3.8-10.6) k/uL RBC 4.37 (4.30-5.90) m/uL Hgb 11.6 L (13.0-17.5) gm/dL Hct 36.0 L (39.0-53.0) % MCV 82.3 (80.0-100.0) fL MCH 26.6 (25.0-35.0) pg MCHC 32.4 (31.0-37.0) g/dL RDW 15.7 H (11.5-15.5) % Plt Count 231 (150-450) k/uL Neutrophils % 63 % Lymphocytes % 26 % Monocytes % 4 % Eosinophils % 3 % Basophils % 1 % Neutrophils # 3.0 (1.3-7.7) k/uL Lymphocytes # 1.2 (1.0-4.8) k/uL Monocytes # 0.2 (0-1.0) k/uL Eosinophils # 0.2 (0-0.7) k/uL Basophils # 0.1 (0-0.2) k/uL Hypochromasia Slight PT (9.0-12.0) sec INR (<1.1) APTT (22.0-30.0) sec Sodium 138 (137-145) mmol/L Potassium 4.7 (3.5-5.1) mmol/L Chloride 105 (98-107) mmol/L Carbon Dioxide 24 (22-30) mmol/L Anion Gap 9 mmol/L BUN 23 H (9-20) mg/dL Creatinine 1.12 (0.66-1.25) mg/dL Est GFR (MDRD) Af Amer >60 (>60 ml/min/1.73 sqM) Est GFR (MDRD) Non-Af >60 (>60 ml/min/1.73 sqM) Glucose 218 H (74-99) mg/dL Calcium 9.0 (8.4-10.2) mg/dL Magnesium 1.6 (1.6-2.3) mg/dL Total Bilirubin 0.7 (0.2-1.3) mg/dL AST 17 (17-59) U/L ALT 31 (21-72) U/L Alkaline Phosphatase 94 (38-126) U/L Total Creatine Kinase 110 (55-170) U/L CK-MB (CK-2) 2.2 (0.0-2.4) ng/mL CK-MB (CK-2) Rel Index 2.0 Troponin I 0.059 H* (0.000-0.034) ng/mL NT-Pro-B Natriuret Pep pg/mL Total Protein 6.0 L (6.3-8.2) g/dL Albumin 3.5 (3.5-5.0) g/dL 10/20/16 10/20/16 Range/Units 13:00 13:00 WBC (3.8-10.6) k/uL RBC (4.30-5.90) m/uL Hgb (13.0-17.5) gm/dL Hct (39.0-53.0) % MCV (80.0-100.0) fL MCH (25.0-35.0) pg MCHC (31.0-37.0) g/dL RDW (11.5-15.5) % Plt Count (150-450) k/uL Neutrophils % % Lymphocytes % % Monocytes % % Eosinophils % % Basophils % % Neutrophils # (1.3-7.7) k/uL Lymphocytes # (1.0-4.8) k/uL Monocytes # (0-1.0) k/uL Eosinophils # (0-0.7) k/uL Basophils # (0-0.2) k/uL Hypochromasia PT 10.8 (9.0-12.0) sec INR 1.1 (<1.1) APTT 21.1 L (22.0-30.0) sec Sodium (137-145) mmol/L Potassium (3.5-5.1) mmol/L Chloride (98-107) mmol/L Carbon Dioxide (22-30) mmol/L Anion Gap mmol/L BUN (9-20) mg/dL Creatinine (0.66-1.25) mg/dL Est GFR (MDRD) Af Amer (>60 ml/min/1.73 sqM) Est GFR (MDRD) Non-Af (>60 ml/min/1.73 sqM) Glucose (74-99) mg/dL Calcium (8.4-10.2) mg/dL Magnesium (1.6-2.3) mg/dL Total Bilirubin (0.2-1.3) mg/dL AST (17-59) U/L ALT (21-72) U/L Alkaline Phosphatase (38-126) U/L Total Creatine Kinase (55-170) U/L CK-MB (CK-2) (0.0-2.4) ng/mL CK-MB (CK-2) Rel Index Troponin I (0.000-0.034) ng/mL NT-Pro-B Natriuret Pep 1310 pg/mL Total Protein (6.3-8.2) g/dL Albumin (3.5-5.0) g/dL Critical Care Time Critical Care Time: Yes Total Critical Care Time: 35 Disposition Clinical Impression: Unstable angina Disposition: ADMITTED IP TO THIS HOSP Referrals: Junie New MD [Primary Care Provider] - 1-2 days Time of Disposition: 14:13
[2016-10-20 13:19] LABS: Basophils # (A) 0.1 k/uL (0-0.2); Basophils % (A) 1 %; CH 26.3; CHCM 32.1; Eosinophils # (A) 0.2 k/uL (0-0.7); Eosinophils % (A) 3 %; HDW 3.19; HGB 11.6 gm/dL (13.0-17.5); Hypochromasia Slight; Luc % (Auto) 2; Lymphocytes # (A) 1.2 k/uL (1.0-4.8); Lymphocytes % (A) 26 %; MCH 26.6 pg (25.0-35.0); MCHC 32.4 g/dL (31.0-37.0); MCV 82.3 fL (80.0-100.0); Mean Platelet Volume 7.4; Monocytes # (A) 0.2 k/uL (0-1.0); Monocytes % (A) 4 %; Neutrophils % (A) 63 %; RBC 4.37 m/uL (4.30-5.90); RDW 15.7 % (11.5-15.5); WBC 4.8 k/uL (3.8-10.6); WBC (Perox) 5.04
--- NOTE | 2016-10-20 13:20 | XR ---
EXAMINATION TYPE: XR chest 2V DATE OF EXAM: 10/20/2016 1:16 PM COMPARISON: 10/05/2016 HISTORY: Short of breath TECHNIQUE: Frontal and lateral views of the chest are obtained. FINDINGS: There is no heart failure nor confluent pneumonic infiltrate. There is a left axillary pac emaker with the lead tips in the right ventricle. There are chest leads. Diaphragm is normal. Bony th orax appears normal. IMPRESSION: No active cardiopulmonary disease. No change.
[2016-10-20 13:36] LABS: INR 1.1 (<1.1); Prothrombin Time 10.8 sec (9.0-12.0)
[2016-10-20 13:48] LABS: ALT 31 U/L (21-72); AST 17 U/L (17-59); Alkaline Phosphatase 94 U/L (38-126); Anion Gap 9 mmol/L; Blood Urea Nitrogen 23 mg/dL (9-20); Carbon Dioxide 24 mmol/L (22-30); Chloride 105 mmol/L (98-107); Glucose 218 mg/dL (74-99); Magnesium 1.6 mg/dL (1.6-2.3); Non-African American GFR(MDRD) >60 (>60 ml/min/1.73 sqM); Potassium 4.7 mmol/L (3.5-5.1); Sodium 138 mmol/L (137-145); Total Bilirubin 0.7 mg/dL (0.2-1.3)
[2016-10-20 13:54] LABS: Creatine Kinase MB 2.2 ng/mL (0.0-2.4)
[2016-10-20 14:04] LABS: Partial Thromboplastin Time 21.1 sec (22.0-30.0)
[2016-10-20 14:09] LABS: Troponin I 0.059 ng/mL (0.000-0.034)
[2016-10-20] MEDS ORDERED: HEPARIN SODIUM,PORCINE 5,000 UNIT/ML 1 ML VIAL IV ONE (14:11)
[2016-10-20] MEDS ORDERED: NITROGLYCERIN SL TABS 0.4 MG TAB SUBLINGUAL PRN ×2 (14:14→15:43)
[2016-10-20] MEDS ORDERED: HEPARIN SODIUM,PORCINE/D5W PMX 25,000 UNIT in DEXTROSE/WATER 1 500ML.BAG IV SCH (14:15)
[2016-10-20 14:35] VITALS: RESP 18
[2016-10-20 15:12] VITALS: BMI 41.9
[2016-10-20] MEDS ORDERED: HYDROmorphone 1 MG/ML 1 ML SYRINGE IVP PRN (15:39)
[2016-10-20] MEDS ORDERED: HEPARIN SODIUM,PORCINE 5,000 UNIT/ML 1 ML VIAL IV PRN (15:41)
[2016-10-20] MEDS ORDERED: BACLOFEN 10 MG TAB PO PRN (15:43)
[2016-10-20] MEDS ORDERED: ONDANSETRON ODT 4 MG TAB PO PRN (15:43)
[2016-10-20 16:53] LABS: Glucose,Whole Blood 181 mg/dL (75-99)
[2016-10-20] MEDS ORDERED: ALPRAZolam 0.25 MG TAB PO PRN (16:54)
[2016-10-20] MEDS ORDERED: TEMAZEPAM 15 MG CAP PO PRN (16:54)
[2016-10-20] MEDS: NITROGLYCERIN OINT 1 INCH/GM PACKET TOPICAL SCH (17:29)
[2016-10-20] MEDS: GABAPENTIN 300 MG CAP PO SCH ×2 (17:31→22:56)
[2016-10-20] MEDS: metFORMIN 500 MG TAB PO SCH (17:31)
[2016-10-20] MEDS: GLIMEPIRIDE 4 MG TAB PO SCH (17:32)
[2016-10-20] MEDS: ACARBOSE 25 MG TAB PO SCH (17:32)
[2016-10-20 19:34] LABS: Creatine Kinase MB 1.8 ng/mL (0.0-2.4)
[2016-10-20 19:36] LABS: Troponin I 0.048 ng/mL (0.000-0.034)
[2016-10-20] MEDS: METOPROLOL TARTRATE 50 MG TAB PO SCH (19:42)
[2016-10-20] MEDS: RANOLAZINE 500 MG TAB.ER.12H PO SCH (19:42)
[2016-10-20] MEDS: FUROSEMIDE 10 MG/ML 4 ML VIAL IV SCH (19:46)
[2016-10-20 20:47] LABS: Glucose,Whole Blood 265 mg/dL (75-99)
[2016-10-20] MEDS ORDERED: PANTOPRAZOLE 40 MG TABLET PO SCH (21:00)
[2016-10-20] MEDS ORDERED: PRIMIDONE 50 MG TAB PO SCH (21:00)
[2016-10-20] MEDS ORDERED: ROSUVASTATIN CALCIUM 40 MG PO SCH (21:00)
[2016-10-20] MEDS ORDERED: ARIPiprazole 15 MG TAB PO SCH (21:00)
[2016-10-20 21:46] LABS: Appearance,Urine Clear (Clear); Bilirubin,Urine Negative (Negative); Glucose,Urine (UA) 1+ (Negative); Ketones,Urine Negative (Negative); Leukocyte Esterase,Urine Negative (Negative); Nitrite,Urine Negative (Negative); Protein,Urine Negative (Negative); Specific Gravity,Urine 1.006 (1.001-1.035); UA Billing (MACRO vs. MICRO) CHEM; Urobilinogen,Urine <2.0 mg/dL (<2.0)
[2016-10-20] MEDS: INSULIN LISPRO (humaLOG) 300 UNIT/3 ML VIAL SQ SCH (22:55)
[2016-10-21] MEDS: NITROGLYCERIN OINT 1 INCH/GM PACKET TOPICAL SCH ×3 (01:08→11:22)
[2016-10-21 01:17] LABS: Creatine Kinase MB 2.2 ng/mL (0.0-2.4)
[2016-10-21 01:24] LABS: Troponin I 0.038 ng/mL (0.000-0.034)
[2016-10-21 05:38] LABS: Glucose,Whole Blood 158 mg/dL (75-99)
[2016-10-21 05:47] LABS: Basophils % (A) 1 %; CH 26.2; CHCM 31.4; Eosinophils # (A) 0.2 k/uL (0-0.7); Eosinophils % (A) 3 %; HCT 36.7 % (39.0-53.0); HDW 3.09; HGB 11.5 gm/dL (13.0-17.5); Hypochromasia Moderate; Luc # (Auto) 0.08; Luc % (Auto) 1; Lymphocytes # (A) 1.4 k/uL (1.0-4.8); Lymphocytes % (A) 23 %; MCH 26.3 pg (25.0-35.0); MCHC 31.4 g/dL (31.0-37.0); MCV 83.9 fL (80.0-100.0); Mean Platelet Volume 7.9; Monocytes # (A) 0.3 k/uL (0-1.0); Monocytes % (A) 4 %; Neutrophils % (A) 68 %; RBC 4.38 m/uL (4.30-5.90); RDW 15.6 % (11.5-15.5); WBC (Perox) 5.59
[2016-10-21 05:56] LABS: Anion Gap 8 mmol/L; Blood Urea Nitrogen 26 mg/dL (9-20); Calcium 8.6 mg/dL (8.4-10.2); Carbon Dioxide 26 mmol/L (22-30); Chloride 105 mmol/L (98-107); Cholesterol 128 mg/dL (<200); Glucose 173 mg/dL (74-99); HDL Cholesterol 44 mg/dL (40-60); Non-African American GFR(MDRD) >60 (>60 ml/min/1.73 sqM); Potassium 4.5 mmol/L (3.5-5.1); Sodium 139 mmol/L (137-145); Triglycerides 182 mg/dL (<150)
[2016-10-21] MEDS: INSULIN LISPRO (humaLOG) 300 UNIT/3 ML VIAL SQ SCH ×2 (06:20→12:19)
[2016-10-21] MEDS ORDERED: INSULIN LISPRO (humaLOG) 300 UNIT/3 ML VIAL SQ SCH (07:30)
[2016-10-21] MEDS ORDERED: PRASUGREL 10 MG TAB PO SCH (09:00)
[2016-10-21] MEDS ORDERED: CHOLECALCIFEROL 1,000 UNIT TAB PO SCH (09:00)
[2016-10-21] MEDS ORDERED: ASPIRIN 325 MG TAB PO SCH (09:00)
[2016-10-21] MEDS ORDERED: FUROSEMIDE 40 MG TAB PO SCH (09:00)
[2016-10-21] MEDS ORDERED: SERTRALINE 100 MG TAB PO SCH (09:00)
[2016-10-21] MEDS ORDERED: LISINOPRIL 2.5 MG TAB PO SCH (09:00)
--- NOTE | 2016-10-21 09:08 | HP ---
DATE OF ADMISSION: The chief complaints are chest pain and shortness of breath. HISTORY OF PRESENT ILLNESS: This 40-year-old gentleman with a past medical history of CAD, history of CHF, CVA, TIA, GERD, hypertension, hyperlipidemia, myocardial infarction, AICD, appendectomy being followed by Dr. Junie León in the outpatient setting was at work. The patient apparently had shortness of breath and as well as chest discomfort in the anterior part of the chest. The patient had multiple attacks and because of lack of improvement, the patient came to [facility] and admitted for further evaluation and treatment. There is no history of any fever, rigors. No history of headache, loss of consciousness or seizures. No history of hematochezia or melena. No history of diaphoresis at this time. In the ER, the initial cardiac enzymes revealed Troponin 0.059. The patient apparently had recent cardiac catheterization which showed no acute abnormality. The chest x-ray showed no active pulmonary disease. PAST MEDICAL HISTORY: History of CAD, history of CHF, CVA, TIA, diabetes mellitus, GERD, hypertension, hyperlipidemia, myocardial infarction, history of MRSA, history of AICD and appendectomy. Medications prior to admission include home medications are: 1. Mysoline 100 mg q.h.s. 2. Prilosec 40 mg q.h.s. 3. Trulicity 1.5 mg subcu Thursday. 4. Abilify 15 mg q.h.s. 5. Rosuvastatin 40 mg q.h.s. 6. Nitro 0.4 sublingual p.r.n. 7. Metoprolol 50 mg p.o. b.i.d. 8. Imodium 4 mg p.o. daily p.r.n. 9. Metformin 1000 mg p.o. b.i.d. 10. Zoloft 200 mg q. a.m. 11. Ranexa 1000 mg b.i.d. 12. Ranitidine 300 mg p.o. daily. 13. Effient 10 mg p.o. daily. 14. Zofran 4 mg b.i.d. p.r.n. 15. Zestril 2.5 mg daily. 16. Glimepiride 4 mg b.i.d. 17. Neurontin 300 mg t.i.d. 18. Lasix 40 mg daily. 19. Vitamin D3, 2000 units daily. 20. Lioresal 10 mg t.i.d. p.r.n. 21. Aspirin 81 mg daily. 22. Precose 25 mg t.i.d. ALLERGIES: Multiple allergies include PENICILLIN, MECLIZINE, ERYTHROMYCIN, SHELLFISH, CEPHALEXIN, CODEINE, NAPROXEN, ACETAMINOPHEN, ATORVASTATIN, HYDROCODONE, IODINATED CONTRAST DYE, BIRD FECES, SEA FOOD. FAMILY HISTORY: History of CAD, myocardial infarction in the family and heart valve disease. SOCIAL HISTORY: No history of smoking. No history of alcohol intake. REVIEW OF SYSTEMS: ENT: No diminishing hearing or diminished vision. CARDIOVASCULAR: No angina or palpitations. RESPIRATORY: As mentioned earlier. GI: As mentioned earlier. : No dysuria. NERVOUS SYSTEM: No numbness or weakness. ALLERGY/IMMUNOLOGY: As mentioned earlier. MUSCULOSKELETAL: As mentioned earlier. HEMATOLOGY/ONCOLOGY: No history of anemia. ENDOCRINE: As mentioned earlier. CONSTITUTIONAL: As mentioned earlier. DERMATOLOGY: Negative. RHEUMATOLOGY: Negative. PSYCHIATRY: As mentioned earlier. PHYSICAL EXAMINATION: The patient is alert and oriented x3. Pulse 68, blood pressure 113/69, respirations 18, temperature 98.2, pulse ox is 100% on 2 L. HEENT: Conjunctivae normal. Oral mucosa moist. NECK: No jugular venous distention. No carotid bruit. No lymph node enlargement. CARDIOVASCULAR: S1 and S2, muffled. RESPIRATORY: Breath sounds diminished at the bases. A few scattered rhonchi and crackles. ABDOMEN: Soft, nontender. No mass palpable. LEGS: No edema, no swelling. NERVOUS SYSTEM: Higher function as mentioned. Moves all 4 limbs. LYMPHATICS: No lymphadenopathy of neck, axillae or groin. SKIN: No ulcers, rashes or bleeding. LABS: WBC 4.8, hemoglobin 11.6. Glucose 218. Troponin 0.059. ASSESSMENT: 1. Chest pain, possible unstable angina. Rule out acute non-ST segment elevation myocardial infarction. Troponin 0.059. 2. Shortness of breath for evaluation, rule out congestive heart failure. 3. Anemia, normocytic. 4. Congestive heart failure with possible acute on chronic systolic dysfunction, ejection fraction 35% to 40%. 5. History of coronary artery disease, myocardial infarction, multiple procedures and stents. 6. Ischemic cardiomyopathy. 7. Diabetes mellitus type 2. 8. History of coronary artery disease. 9. History of cerebrovascular accident, transient ischemic attack. 10. History of gastroesophageal reflux disease. 11. Hypertension. 12. Hyperlipidemia. 13. History of degenerative joint disease. 14. History of pneumonia. 15. History of sleep apnea. 16. History of diabetic peripheral neuropathy in bilateral hands and feet. 17. Hypertensive heart disease. 18. Chronic gastritis. 19. History of degenerative joint disease. 20. History of depression. 21. History of gastroparesis. 22. History of psoriasis. 23. History of AICD. 24. History of coronary artery disease and stent. 25. Anxiety, depression, posttraumatic stress disorder. 26. History of THC and EtOH remotely. 27. FULL CODE. RECOMMENDATIONS AND DISCUSSION: I recommend to continue current medications and symptomatic treatment. I recommend to continue the acute coronary syndrome protocol. Closely follow with Cardiology. Otherwise, I would also recommend IV Lasix, bronchodilators. I will get D-dimer and if D-dimer is positive, I would recommend a CT angiogram of chest to rule out the possibility of pulmonary embolism. Guarded prognosis . Further recommendations to follow.
--- NOTE | 2016-10-21 09:21 | CONS ---
DATE OF CONSULTATION: CHIEF COMPLAINT: Chest pain. Ti is a 40-year-old gentleman with history of coronary artery disease, status post multivessel angioplasty, ischemic cardiomyopathy, AICD, hypertension, diabetes, dyslipidemia who follows with chemical test engineer in [facility], came to hospital having had an episode of shortness of breath while he was bending down. He did not have any chest tightness, it was mild intensity, came on at rest. Did not have any exacerbating or relieving factors for his symptoms. Comes in, his tropes were in the gary zone as they have been at all his previous hospitalizations due to which he is admitted to hospital. EKG does not reveal acute ischemic changes. Patient was in the hospital 2 weeks ago with very similar presentation and similar cardiac enzymes and was discharged home and was to see his chemical test engineer this Thursday. At the time of my evaluation, patient is comfortable at rest and is free of symptoms. Patient states that he had a cardiac catheterization 2 weeks ago that showed normal coronary arteries. Past medical history is significant for CAD, status post multivessel angioplasty, ischemic cardiomyopathy, status post AICD, hypertension, dyslipidemia, insulin-requiring diabetes. Current medications include Mysoline 100 mg daily, Prilosec 40 mg daily, Abilify, Crestor 40 mg daily, metoprolol 50 b.i.d., Imodium 4 mg daily, metformin 1000 b.i.d., Zoloft, Ranexa, Effient 10 mg daily, Zofran, Zestril 2.5 mg daily, glyburide 4 mg b.i.d., Neurontin 300 mg t.i.d., Lasix 40 mg daily, Lioresal, aspirin and Precose. ALLERGIES: There are multiple drug allergies including PENICILLIN, ERYTHROMYCIN, SHELLFISH, CODEINE, LIPITOR, NORCO. FAMILY HISTORY: Negative for premature coronary artery disease. Social history is significant for smoking. There is no history of EtOH abuse or drug abuse. Past surgical history is significant for AICD, appendectomy, cholecystectomy, prior angioplasties. REVIEW OF SYSTEMS: HEENT: Unremarkable. CARDIAC: As described above. RESPIRATORY: Negative. GI: Negative. GENITOURINARY: Negative. ALLERGY/IMMUNOLOGY: Negative. SKIN: Negative. MUSCULOSKELETAL: Significant for back pain. PSYCHOSOCIAL: Negative. ENDOCRINE: Negative. HEMATOLOGIC: Negative. CONSTITUTIONAL: Negative. ONCOLOGICAL: Negative. CONTAINER FINISHING INSPECTOR: Negative. Rest of the system review is not relevant. On exam, patient appears comfortable at rest. Vital signs are stable. There is no jugular venous distention. Carotid upstroke is normal. There is no bruit. Chest exam reveals good air entry bilaterally. Heart exam reveals first and second heart sounds. No gallop. No murmur, no rub. Abdomen is soft, nontender. Exam of extremities did not reveal edema. Peripheral pulses are felt. Labs show an LDL cholesterol of 48. Creatinine is 1.2. Potassium is 4.5. Hemoglobin is 11.5. EKG does not show acute ischemic changes. Cardiac enzymes were 0.04, 0.03 more or less in the same range that they have been. ASSESSMENT: 1. Chest pain, atypical. 2. Mild troponin elevation, chronic and of unclear clinical significance. 3. Coronary artery disease, status post multivessel angioplasty with history of recent negative cardiac catheterization. 4. Ischemic cardiomyopathy, status post AICD. PLAN: From cardiac standpoint, patient is doing well. I reviewed his old records. I am going to review his angiographic data from [place]. I do not believe he requires further cardiac evaluation at this time. Will stop his heparin. Feed him and ambulate him. We should be able to discharge him home and arrange followup with his own chemical test engineer. If necessary workup can be done as outpatient. Thank you for allowing us to participate in the care of this pleasant gentleman.
[2016-10-21 09:24] VITALS: BP 112/73; PULSE 80; TEMP 98.1
[2016-10-21] MEDS: GLIMEPIRIDE 4 MG TAB PO SCH (09:26)
[2016-10-21] MEDS: ACARBOSE 25 MG TAB PO SCH ×2 (09:26→12:19)
[2016-10-21] MEDS: metFORMIN 500 MG TAB PO SCH (09:26)
[2016-10-21] MEDS: FUROSEMIDE 10 MG/ML 4 ML VIAL IV SCH (09:27)
[2016-10-21] MEDS: RANOLAZINE 500 MG TAB.ER.12H PO SCH (09:28)
[2016-10-21] MEDS: METOPROLOL TARTRATE 50 MG TAB PO SCH (09:28)
[2016-10-21] MEDS: GABAPENTIN 300 MG CAP PO SCH (09:28)
[2016-10-21 11:09] LABS: Hemoglobin A1C 9.8 % (4.2-6.1)
[2016-10-21 11:55] LABS: Glucose,Whole Blood 338 mg/dL (75-99)
--- NOTE | 2016-10-22 07:01 | DS ---
DATE OF ADMISSION: 10/20/2016 DATE OF DISCHARGE: 10/21/2016 FINAL DIAGNOSES: 1. Chest pain, possible angina. 2. Troponin 0.05 indeterminate. 3. Shortness of breath, improved. 4. Anemia, normocytic. 5. History of congestive heart failure with acute on chronic systolic dysfunction, ejection fraction 35 to 40%. 6. History of coronary artery disease coronary artery disease, myocardial infarction, multiple procedures and stents and ischemic cardiomyopathy. 7. Diabetes mellitus type 2. 8. History of coronary artery disease. 9. History of cerebrovascular accident, transient ischemic attack. 10. History of gastroesophageal reflux disease. 11. Hypertension. 12. Hyperlipidemia. 13. History of degenerative joint disease. 14. History of pneumonia. 15. History of sleep apnea. 16. History of diabetic peripheral neuropathy in bilateral hands and feet. 17. Hypertension, heart disease. 18. Chronic gastritis. 19. History of degenerative joint disease. 20. History of depression. 21. History of gastroparesis. 22. History of psoriasis. 23. History of automatic implantable cardioverter-defibrillator. 24. History of coronary artery disease and stent. 25. Anxiety, depression, posttraumatic disorder. 26. History of THC and ETOH remotely. 27. FULL CODE. DISCHARGE DISPOSITION: The patient will be discharged in stable condition with guarded prognosis. Discharge cleared by cardiology. HISTORY OF PRESENT ILLNESS: this 40 -year-old gentleman with past medical history of multiple medical problems admitted with chest pain, shortness of breath. The patient treated symptomatically and improved significantly. Cardiology saw the patient. Troponins are indeterminate, but the patient had complete cardiovascular work-up recently. Please refer to cardiology notes for further information. At this point. Cardiology recommended outpatient follow-up. On exam, vitals are stable. Cardiovascular S1, S2. ABDOMEN: Soft. Nontender. Central nervous system: No focal deficits. The patient symptomatic. DISCHARGE ADVICE: 1. Diet is cardiac. 2. Activity limited until follow-up. 3. Follow up with Dr. New in 2 to 3 days. 4. Follow up with cardiology as recommended. Medications will be: 1. Precose 25 mg t.i.d. 2. Abilify 15 mg q.h.s. 3. Aspirin 81 mg daily, 4. Lioresal 10 mg p.o. before meals t.i.d. 5. Vitamin D3 2000 daily. 6. Trulicity 0.5 mg subcu, Thursday. 7. Lasix 40 mg p.o. daily. 8. Neurontin 300 mg t.i.d. 9. glimepride a.c. b.i.d. 10. Zestril 2.5 mg daily. 11. Imodium 4 mg daily p.r.n. 12. Metformin 1000 mg p.o. b.i.d. 13. Metoprolol 50 mg p.o. b.i.d. 14. Nitrostat 0.4 sublingual p.r.n. 15. Prilosec 40 mg q.h.s. 16. Zofran 4 mg b.i.d. 17. Effient 10 mg daily p.r.n. 18. Mysoline 100 mg p.o. q.h.s. 19. Ranitidine 300 mg p.o. daily. 20. Ranexa 1000 mg p.o. b.i.d. 21. Calcium 40 mg q.h.s. 22. Zoloft 200 mg each morning. Follow up labs with Dr. Junie New, CBC. Once again the patient is being discharged in stable condition with guarded prognosis. [facility]
== END 2016-10-21 12:32 | disposition home or self-care (01) | DRG 302 ==
LOC: EC 12:18 → 6SEL 14:15
PROVIDERS: ADMIT Hospitalist; ATTEND Hospitalist
DX: I25.110 Atherosclerotic heart disease of native coronary artery with unstable angina pectoris (principal); I50.23 Acute on chronic systolic (congestive) heart failure; E11.42 Type 2 diabetes mellitus with diabetic polyneuropathy; K31.84 Gastroparesis; I11.0 Hypertensive heart disease with heart failure; D64.9 Anemia, unspecified; E78.5 Hyperlipidemia, unspecified; F32.9 Major depressive disorder, single episode, unspecified; F43.10 Post-traumatic stress disorder, unspecified; G47.30 Sleep apnea, unspecified; I25.2 Old myocardial infarction; I25.5 Ischemic cardiomyopathy; K21.9 Gastro-esophageal reflux disease without esophagitis; K29.50 Unspecified chronic gastritis without bleeding; E11.43 Type 2 diabetes mellitus with diabetic autonomic (poly)neuropathy; L40.9 Psoriasis, unspecified; M19.90 Unspecified osteoarthritis, unspecified site; G89.29 Other chronic pain; M54.9 Dorsalgia, unspecified; F41.9 Anxiety disorder, unspecified; Z79.82 Long term (current) use of aspirin; Z79.84 Long term (current) use of oral hypoglycemic drugs; Z79.899 Other long term (current) drug therapy; Z88.5 Allergy status to narcotic agent; Z88.0 Allergy status to penicillin; Z88.8 Allergy status to other drugs, medicaments and biological substances; Z88.1 Allergy status to other antibiotic agents; Z91.041 Radiographic dye allergy status; Z86.14 Personal history of Methicillin resistant Staphylococcus aureus infection; Z95.810 Presence of automatic (implantable) cardiac defibrillator; Z95.5 Presence of coronary angioplasty implant and graft; Z82.49 Family history of ischemic heart disease and other diseases of the circulatory system
CPT/HCPCS: 36415; 71020; 80048; 80053; 80061; 80306; 81003; 82550; 82553; 83036; 83735; 83880; 84484; 85025; 85379; 85610; 85730; 93005; 96376; 99291

== ENCOUNTER 2016-11-07 19:54 | Emergency (ER) | payer MEDICARE, OTHER ==
--- NOTE | 2016-11-07 21:00 | ED ---
General Adult HPI - General Chief complaint: Recheck/Abnormal Lab/Rx Stated complaint: Low B/P heart hx Time Seen by Provider: 11/07/16 20:24 Source: patient Mode of arrival: wheelchair Limitations: no limitations - History of Present Illness Initial comments: This patient is a 40-year-old man who presents with complaint that he feels "dumpy" all day. And by this he states that he means that he feels generalized fatigue and lack of energy. This is been going on since about 8 or 9:00 this morning. He denies any focality of the weakness. This evening the patient decided to check his blood pressure and it was in the 80s at home. He states that this is a bit low for him so he decided he should be seen here. The patient is denying pain anywhere. He is not having dyspnea. No other anginal type symptoms, including no diaphoresis, palpitations or syncope, nausea or vomiting. In addition the patient denies fever or chills, or signs of infection. Onset/Timin -: days(s) Consistency: constant Improves with: none Worsens with: none Treatments Prior to Arrival: none - Related Data Home Medications Medication Instructions Recorded Confirmed Nitroglycerin Sl Tabs [Nitrostat] 0.4 mg SUBLINGUAL Q5M PRN 10/13/13 11/07/16 Sertraline HCl [Zoloft] 200 mg PO QAM 10/13/13 11/07/16 Furosemide [Lasix] 40 mg PO DAILY 05/21/15 11/07/16 metFORMIN HCL 1,000 mg PO AC-BID 07/03/15 11/07/16 Omeprazole [PriLOSEC] 40 mg PO HS 08/13/15 11/07/16 Baclofen [Lioresal] 10 mg PO AC-TID PRN 01/13/16 11/07/16 Dulaglutide [Trulicity] 1.5 mg SQ OROZCO 03/10/16 11/07/16 Glimepiride 4 mg PO AC-BID 03/10/16 11/07/16 Rosuvastatin Calcium 40 mg PO HS 05/05/16 11/07/16 Lisinopril [Zestril] 2.5 mg PO DAILY 06/01/16 11/07/16 Acarbose [Precose] 25 mg PO AC-TID 06/09/16 11/07/16 Gabapentin [Neurontin] 300 mg PO TID 06/09/16 11/07/16 Ranolazine [Ranexa] 1,000 mg PO BID 06/09/16 11/07/16 ARIPiprazole [Abilify] 15 mg PO HS 06/30/16 11/07/16 Ondansetron Odt [Zofran ODT] 4 mg PO Q12HR PRN 06/30/16 11/07/16 Primidone [Mysoline] 100 mg PO HS 06/30/16 11/07/16 Ranitidine HCl 300 mg PO DAILY 06/30/16 11/07/16 Loperamide [Imodium] 2 mg PO TID PRN 10/20/16 11/07/16 Metoprolol Tartrate 50 mg PO BID 10/20/16 11/07/16 Aspirin EC [Ecotrin Low Dose] 81 mg PO DAILY 11/07/16 11/07/16 Cholecalciferol (Vitamin D3) 2,000 unit PO DAILY 11/07/16 11/07/16 [Vitamin D3] Previous Rx's Medication Instructions Recorded Prasugrel [Effient] 10 mg PO DAILY tab 07/01/16 Allergies Allergy/AdvReac Type Severity Reaction Status Date / Time erythromycin base Allergy Severe Swelling Verified 11/07/16 20:45 [Erythromycin Base] codeine Allergy Unknown Swelling Verified 11/07/16 20:45 meclizine Allergy Unknown Unknown Verified 11/07/16 20:45 Penicillins Allergy Unknown Rash/Hives Verified 11/07/16 20:45 shellfish derived Allergy Unknown Anaphylaxis Verified 11/07/16 20:45 Fish Containing Products Allergy Anaphylaxis Verified 11/07/16 20:45 [Fish] Iodinated Contrast Media - Allergy Anaphylaxis Verified 11/07/16 20:45 Oral and cephalexin monohydrate AdvReac Unknown Nausea & Verified 11/07/16 20:45 [From Keflex] Vomiting naproxen AdvReac Unknown Compromises Verified 11/07/16 20:45 Kidney Function atorvastatin calcium AdvReac Myalgia Verified 11/07/16 20:45 [From Lipitor] hydrocodone [From [place]] AdvReac Rapid Verified 11/07/16 20:45 Heart Rate Review of Systems ROS Statement: Those systems with pertinent positive or pertinent negative responses have been documented in the HPI. ROS Other: All systems not noted in ROS Statement are negative. Constitutional: Reports: weakness (Generalized). Denies: fever, chills ENT: Denies: throat pain, congestion Respiratory: Denies: cough, dyspnea, wheezes Cardiovascular: Denies: chest pain, palpitations, orthopnea, syncope Gastrointestinal: Denies: abdominal pain, nausea, vomiting, diarrhea Genitourinary: Denies: dysuria, hematuria Musculoskeletal: Denies: back pain Skin: Denies: rash Neurological: Denies: headache, weakness, numbness, paresthesias Past Medical History Past Medical History: Coronary Artery Disease (CAD), Chest Pain / Angina, Heart Failure, CVA/TIA, Diabetes Mellitus, GERD/Reflux, Hyperlipidemia, Hypertension, Myocardial Infarction (NE), Osteoarthritis (OA), Pneumonia, Skin Disorder, Sleep Apnea/CPAP/BIPAP Additional Past Medical History / Comment(s): HX: Coronary artery disease with multiple vessel disease, ischemic cardiomyopathy, diabetic neuropathy bilateral hands and feet, hypertension hypertensive cardiovascular disease, chronic gastritis, chronic back pain, depression with hx of suicide attempts, GASTROPARESIS, PSORIASES,NIDDM type II. Last Myocardial Infarction Date:: 06/03/16 per pt. History of Any Multi-Drug Resistant Organisms: MRSA Date of last positivie culture/infection: 06/09/16 MDRO Source:: face Past Surgical History: AICD, Appendectomy, Cholecystectomy, Heart Catheterization With Stent, Hernia Repair Additional Past Surgical History / Comment(s): Pt has had multiple cardiac procedures-caths/PTCA/stenting with last stent place 06/03/16 at 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 Past Anesthesia/Blood Transfusion Reactions: No Reported Reaction Additional Past Anesthesia/Blood Transfusion Reaction / Comment(s): . Date of Last Stent Placement:: 06/03/16 Type of Cardiac Device: Biventricular Pacemaker, AICD Device Placement Date:: 09/19/15 Past Psychological History: Anxiety, Depression, PTSD Smoking Status: Never smoker Past Alcohol Use History: None Reported Past Drug Use History: None Reported - Past Family History Mother Family Medical History: Coronary Artery Disease (CAD), Myocardial Infarction (NE ) Additional Family Medical History / Comment(s): 7 NE and faulty heart valve. Pt does not know the age when mother had her MIs. Father History Unknown: Yes Additional Family Medical History / Comment(s): Does not know who father is Brother(s) Family Medical History: Congestive Heart Failure (CHF), Myocardial Infarction ( NE) Additional Family Medical History / Comment(s): Parkinsons. Pt does not know at what age his brother had a NE Patient has Family Medical History: No Reported History Additional Family Medical History / Comment(s): There is a strong family history for heart disease, hypertension, and diabetes. General Exam Limitations: no limitations General appearance: alert, in no apparent distress, obese Head exam: Present: atraumatic, normocephalic Eye exam: Present: normal appearance. Absent: scleral icterus, conjunctival injection ENT exam: Present: normal oropharynx, mucous membranes moist Neck exam: Present: normal inspection, full ROM Respiratory exam: Present: normal lung sounds bilaterally. Absent: respiratory distress, wheezes, rales, rhonchi, stridor Cardiovascular Exam: Present: regular rate, normal rhythm, normal heart sounds. Absent: systolic murmur, diastolic murmur, rubs, gallop GI/Abdominal exam: Present: soft. Absent: distended, tenderness, guarding, rebound, mass Extremities exam: Present: normal inspection, normal capillary refill. Absent: pedal edema, calf tenderness Back exam: Present: normal inspection. Absent: CVA tenderness (R), CVA tenderness (L) Neurological exam: Present: alert. Absent: motor sensory deficit Skin exam: Present: warm, dry, intact, normal color. Absent: rash Course Vital Signs 11/07/16 11/07/16 11/07/16 20:12 20:35 21:00 Temperature 97.9 F Pulse Rate 86 85 81 Respiratory 18 18 20 Rate Blood Pressure 92/51 111/65 108/59 O2 Sat by Pulse 98 97 99 Oximetry 11/07/16 11/07/16 11/07/16 22:00 22:57 23:59 Temperature Pulse Rate 84 74 85 Respiratory 16 18 18 Rate Blood Pressure 116/58 129/64 154/79 O2 Sat by Pulse 99 99 99 Oximetry EKG Findings - EKG Comments: EKG Findings:: Twelve-lead EKG shows what appeared to be an atrial sensed ventricular paced pacemaker rhythm, rate is proximal 78 bpm. - EKG Results: EKG: interpreted by GREGD, sinus rhythm (Rate 78 bpm), normal axis Medical Decision Making - Lab Data Result diagrams: 11/07/16 21:00 11/07/16 21:00 Lab Results 11/07/16 11/07/16 11/07/16 Range/Units 21:00 21:00 21:00 WBC 5.6 (3.8-10.6) k/uL RBC 4.60 (4.30-5.90) m/uL Hgb 12.1 L (13.0-17.5) gm/dL Hct 38.0 L (39.0-53.0) % MCV 82.7 (80.0-100.0) fL MCH 26.3 (25.0-35.0) pg MCHC 31.8 (31.0-37.0) g/dL RDW 15.4 (11.5-15.5) % Plt Count 217 (150-450) k/uL Neutrophils % 67 % Lymphocytes % 21 % Monocytes % 5 % Eosinophils % 3 % Basophils % 1 % Neutrophils # 3.8 (1.3-7.7) k/uL Lymphocytes # 1.2 (1.0-4.8) k/uL Monocytes # 0.3 (0-1.0) k/uL Eosinophils # 0.2 (0-0.7) k/uL Basophils # 0.0 (0-0.2) k/uL Hypochromasia Slight PT (9.0-12.0) sec INR (<1.1) APTT (22.0-30.0) sec Sodium 138 (137-145) mmol/L Potassium 5.2 H (3.5-5.1) mmol/L Chloride 104 (98-107) mmol/L Carbon Dioxide 22 (22-30) mmol/L Anion Gap 12 mmol/L BUN 29 H (9-20) mg/dL Creatinine 1.90 H (0.66-1.25) mg/dL Est GFR (MDRD) Af Amer 48 (>60 ml/min/1.73 sqM) Est GFR (MDRD) Non-Af 39 (>60 ml/min/1.73 sqM) Glucose 275 H (74-99) mg/dL Plasma Lactic Acid [place] 1.6 (0.7-2.0) mmol/L Calcium 9.2 (8.4-10.2) mg/dL Magnesium 1.6 (1.6-2.3) mg/dL Total Bilirubin 0.5 (0.2-1.3) mg/dL AST 19 (17-59) U/L ALT 32 (21-72) U/L Alkaline Phosphatase 92 (38-126) U/L Troponin I (0.000-0.034) ng/mL Total Protein 5.6 L (6.3-8.2) g/dL Albumin 3.4 L (3.5-5.0) g/dL Urine Color Urine Appearance (Clear) Urine pH (5.0-8.0) Ur Specific [place] (1.001-1.035) Urine Protein (Negative) Urine Glucose (UA) (Negative) Urine Ketones (Negative) Urine Blood (Negative) Urine Nitrite (Negative) Urine Bilirubin (Negative) Urine Urobilinogen (<2.0) mg/dL Ur Leukocyte Esterase (Negative) 11/07/16 11/07/16 11/07/16 Range/Units 21:00 21:00 21:00 WBC (3.8-10.6) k/uL RBC (4.30-5.90) m/uL Hgb (13.0-17.5) gm/dL Hct (39.0-53.0) % MCV (80.0-100.0) fL MCH (25.0-35.0) pg MCHC (31.0-37.0) g/dL RDW (11.5-15.5) % Plt Count (150-450) k/uL Neutrophils % % Lymphocytes % % Monocytes % % Eosinophils % % Basophils % % Neutrophils # (1.3-7.7) k/uL Lymphocytes # (1.0-4.8) k/uL Monocytes # (0-1.0) k/uL Eosinophils # (0-0.7) k/uL Basophils # (0-0.2) k/uL Hypochromasia PT 10.7 (9.0-12.0) sec INR 1.1 (<1.1) APTT 22.0 (22.0-30.0) sec Sodium (137-145) mmol/L Potassium (3.5-5.1) mmol/L Chloride (98-107) mmol/L Carbon Dioxide (22-30) mmol/L Anion Gap mmol/L BUN (9-20) mg/dL Creatinine (0.66-1.25) mg/dL Est GFR (MDRD) Af Amer (>60 ml/min/1.73 sqM) Est GFR (MDRD) Non-Af (>60 ml/min/1.73 sqM) Glucose (74-99) mg/dL Plasma Lactic Acid [place] (0.7-2.0) mmol/L Calcium (8.4-10.2) mg/dL Magnesium (1.6-2.3) mg/dL Total Bilirubin (0.2-1.3) mg/dL AST (17-59) U/L ALT (21-72) U/L Alkaline Phosphatase (38-126) U/L Troponin I <0.012 (0.000-0.034) ng/mL Total Protein (6.3-8.2) g/dL Albumin (3.5-5.0) g/dL Urine Color Yellow Urine Appearance Clear (Clear) Urine pH 5.0 (5.0-8.0) Ur Specific [place] 1.012 (1.001-1.035) Urine Protein Trace H (Negative) Urine Glucose (UA) Negative (Negative) Urine Ketones Negative (Negative) Urine Blood Negative (Negative) Urine Nitrite Negative (Negative) Urine Bilirubin Negative (Negative) Urine Urobilinogen <2.0 (<2.0) mg/dL Ur Leukocyte Esterase Negative (Negative) Disposition Clinical Impression: Dehydration Disposition: HOME SELF-CARE Condition: Good Instructions: Dehydration (ED) Referrals: Junie New MD [Primary Care Provider] - 1-2 days
[2016-11-07 21:25] LABS: Appearance,Urine Clear (Clear); Basophils % (A) 1 %; Bilirubin,Urine Negative (Negative); CH 26.1; CHCM 31.6; Eosinophils # (A) 0.2 k/uL (0-0.7); Eosinophils % (A) 3 %; Glucose,Urine (UA) Negative (Negative); HDW 2.92; HGB 12.1 gm/dL (13.0-17.5); Hypochromasia Slight; Ketones,Urine Negative (Negative); Leukocyte Esterase,Urine Negative (Negative); Luc % (Auto) 2; Lymphocytes # (A) 1.2 k/uL (1.0-4.8); Lymphocytes % (A) 21 %; MCH 26.3 pg (25.0-35.0); MCHC 31.8 g/dL (31.0-37.0); MCV 82.7 fL (80.0-100.0); Mean Platelet Volume 8.2; Monocytes # (A) 0.3 k/uL (0-1.0); Monocytes % (A) 5 %; Neutrophils # (A) 3.8 k/uL (1.3-7.7); Neutrophils % (A) 67 %; Nitrite,Urine Negative (Negative); Protein,Urine Trace (Negative); RDW 15.4 % (11.5-15.5); Specific Gravity,Urine 1.012 (1.001-1.035); UA Billing (MACRO vs. MICRO) CHEM; Urobilinogen,Urine <2.0 mg/dL (<2.0); WBC 5.6 k/uL (3.8-10.6); WBC (Perox) 5.99
--- NOTE | 2016-11-07 21:29 | XR ---
EXAMINATION TYPE: XR chest 1V portable DATE OF EXAM: 11/07/2016 COMPARISON: NONE INDICATION: Fatigue TECHNIQUE: Single frontal view of the chest is obtained. FINDINGS: The heart size is slightly prominent. Electronic device overlies left chest.. The pulmonary vasculature is normal. The lungs are clear. IMPRESSION: 1. No acute pulmonary process.
[2016-11-07 21:35] LABS: Calcium 9.2 mg/dL (8.4-10.2); INR 1.1 (<1.1); Magnesium 1.6 mg/dL (1.6-2.3); Potassium 5.2 mmol/L (3.5-5.1); Prothrombin Time 10.7 sec (9.0-12.0); Total Bilirubin 0.5 mg/dL (0.2-1.3); Total Protein 5.6 g/dL (6.3-8.2)
[2016-11-07] MEDS ORDERED: SODIUM CHLORIDE 0.9% 1,000 ML IV ONE (22:47)
[2016-11-07 22:58] VITALS: RESP 18
[2016-11-08 00:24] VITALS: BP 141/68; PULSE 78; TEMP 98.2
== END 2016-11-08 00:23 | disposition home or self-care (01) ==
LOC: EC 19:54
DX: E86.0 Dehydration (principal); R53.1 Weakness; I25.10 Atherosclerotic heart disease of native coronary artery without angina pectoris; I50.9 Heart failure, unspecified; K21.9 Gastro-esophageal reflux disease without esophagitis; E78.5 Hyperlipidemia, unspecified; I11.0 Hypertensive heart disease with heart failure; I25.2 Old myocardial infarction; E11.40 Type 2 diabetes mellitus with diabetic neuropathy, unspecified; F41.9 Anxiety disorder, unspecified; F32.9 Major depressive disorder, single episode, unspecified; F43.10 Post-traumatic stress disorder, unspecified; Z86.73 Personal history of transient ischemic attack (TIA), and cerebral infarction without residual deficits; Z95.810 Presence of automatic (implantable) cardiac defibrillator; Z88.0 Allergy status to penicillin; Z88.1 Allergy status to other antibiotic agents; Z88.5 Allergy status to narcotic agent; Z88.8 Allergy status to other drugs, medicaments and biological substances; Z91.013 Allergy to seafood; Z91.041 Radiographic dye allergy status; Z79.82 Long term (current) use of aspirin; Z79.84 Long term (current) use of oral hypoglycemic drugs; Z79.899 Other long term (current) drug therapy
CPT/HCPCS: 36415; 71010; 80053; 81003; 83605; 83735; 84484; 85025; 85610; 85730; 93005; 96360; 99285

== ENCOUNTER 2016-12-19 17:54 | Inpatient (IN) | payer MEDICARE, OTHER ==
[2016-12-19] MEDS: SODIUM CHLORIDE 0.9% 1,000 ML IV STA ×3 (18:29→19:29)
[2016-12-19 18:48] LABS: Glucose,Whole Blood 185 mg/dL (75-99)
[2016-12-19 18:59] LABS: Basophils # (A) 0.1 k/uL (0-0.2); Basophils % (A) 1 %; CH 26.4; CHCM 32.2; Eosinophils # (A) 0.2 k/uL (0-0.7); Eosinophils % (A) 3 %; HCT 40.8 % (39.0-53.0); HDW 2.93; HGB 13.3 gm/dL (13.0-17.5); Hypochromasia Slight; Luc # (Auto) 0.09; Luc % (Auto) 1; Lymphocytes # (A) 1.4 k/uL (1.0-4.8); Lymphocytes % (A) 20 %; MCHC 32.7 g/dL (31.0-37.0); MCV 82.5 fL (80.0-100.0); Mean Platelet Volume 7.3; Monocytes # (A) 0.4 k/uL (0-1.0); Monocytes % (A) 6 %; Neutrophils # (A) 4.9 k/uL (1.3-7.7); Neutrophils % (A) 69 %; RBC 4.94 m/uL (4.30-5.90); RDW 15.8 % (11.5-15.5); WBC (Perox) 6.81
[2016-12-19 19:07] LABS: Calcium 9.6 mg/dL (8.4-10.2); Magnesium 1.4 mg/dL (1.6-2.3); Phosphorous 4.9 mg/dL (2.5-4.5); Potassium 4.6 mmol/L (3.5-5.1); Prothrombin Time 10.6 sec (9.0-12.0); Total Bilirubin 0.5 mg/dL (0.2-1.3); Total Protein 6.5 g/dL (6.3-8.2)
[2016-12-19 19:24] LABS: Partial Thromboplastin Time 20.1 sec (22.0-30.0)
[2016-12-19 19:31] LABS: Creatine Kinase MB 2.2 ng/mL (0.0-2.4); Troponin I 0.032 ng/mL (0.000-0.034)
[2016-12-19] MEDS ORDERED: MAGNESIUM SULFATE-D5W PMX 1 GM in DEXTROSE/WATER 1 100ML.BAG IVPB ONE (19:32)
[2016-12-19] MEDS ORDERED: ASPIRIN 325 MG TAB PO STA (19:43)
--- NOTE | 2016-12-19 20:10 | XR ---
EXAMINATION TYPE: XR chest 1V DATE OF EXAM: 12/19/2016 COMPARISON: 11/07/2016 HISTORY: Hypotension and fatigue TECHNIQUE: Single frontal view of the chest is obtained. FINDINGS: Portable single view chest shows no heart failure nor confluent pneumonic infiltrate. Hear t appears enlarged. There are chest leads. There is left axillary pacemaker with the lead tips in the right ventricle. IMPRESSION: Cardiomegaly. No change compared to last exam. No heart failure.
[2016-12-19] MEDS ORDERED: ONDANSETRON 4 MG/2 ML VIAL IVP STA (20:20)
[2016-12-19 20:24] LABS: Appearance,Urine Cloudy (Clear); Bilirubin,Urine Negative (Negative); Glucose,Urine (UA) 3+ (Negative); Ketones,Urine Negative (Negative); Leukocyte Esterase,Urine Negative (Negative); Mucus,Urine Rare /hpf; Nitrite,Urine Negative (Negative); PH, Urine 5.5 (5.0-8.0); Particle Count 4459; Protein,Urine 2+ (Negative); RBC,Urine 8 /hpf (0-5); Specific Gravity,Urine 1.014 (1.001-1.035); Squamous Epithelial Cell,Urine 1 /hpf (0-4); UA Billing (MACRO vs. MICRO) MICRO; Urobilinogen,Urine <2.0 mg/dL (<2.0); WBC,Urine 2 /hpf (0-5)
[2016-12-19] MEDS ORDERED: ACETAMINOPHEN TAB 500 MG TAB PO STA (20:55)
[2016-12-19] MEDS ORDERED: NOREPINEPHRIN 4 MG-0.9% NS PMX 4 MG/250 ML ML IV SCH (21:45)
[2016-12-19] MEDS ORDERED: NALOXONE 0.4 MG/ML 1 ML VIAL IV PRN (21:51)
[2016-12-19] MEDS ORDERED: ACETAMINOPHEN TAB 325 MG TAB PO PRN (21:51)
[2016-12-19] MEDS ORDERED: DEXTROSE 5%-0.45% NACL 1,000 ML IV SCH (22:00)
--- NOTE | 2016-12-19 22:32 | ED ---
General Adult HPI - General Chief complaint: Weakness Stated complaint: Fatigue,Weakness Time Seen by Provider: 12/19/16 18:21 Source: patient, family, RN notes reviewed, old records reviewed Mode of arrival: wheelchair Limitations: no limitations - History of Present Illness Initial comments: 40-year-old male presents with chief complaint of lightheadedness and fatigue. This began approximate 5 PM tonight. Patient has a history of nonischemic cardiomyopathy and has a pacemaker defibrillator. He also complains of nausea and vomiting. He's had 3 episodes of vomiting. It has had 2 days of diarrhea. He has been treated for a urinary tract infection and is currently on Bactrim. Patient also reports some mild chest pain and shortness of breath. He does have a history of CAD with cardiac stents. Also has history of diabetes. - Related Data Home Medications Medication Instructions Recorded Confirmed Nitroglycerin Sl Tabs [Nitrostat] 0.4 mg SUBLINGUAL Q5M PRN 10/13/13 12/19/16 Sertraline HCl [Zoloft] 200 mg PO DAILY 10/13/13 12/19/16 Furosemide [Lasix] 40 mg PO DAILY 05/21/15 12/19/16 metFORMIN HCL 1,000 mg PO BID 07/03/15 12/19/16 Omeprazole [PriLOSEC] 40 mg PO HS 08/13/15 12/19/16 Baclofen [Lioresal] 10 mg PO AC-TID PRN 01/13/16 12/19/16 Dulaglutide [Trulicity] 1.5 mg SQ OROZCO 03/10/16 12/19/16 Glimepiride 4 mg PO BID 03/10/16 12/19/16 Rosuvastatin Calcium 40 mg PO HS 05/05/16 12/19/16 Lisinopril [Zestril] 2.5 mg PO DAILY 06/01/16 12/19/16 Acarbose [Precose] 25 mg PO BID 06/09/16 12/19/16 Gabapentin [Neurontin] 300 mg PO BID 06/09/16 12/19/16 Ranolazine [Ranexa] 1,000 mg PO BID 06/09/16 12/19/16 Primidone [Mysoline] 100 mg PO HS 06/30/16 12/19/16 Loperamide [Imodium] 2 mg PO TID PRN 10/20/16 12/19/16 Metoprolol Tartrate 50 mg PO BID 10/20/16 12/19/16 Aspirin EC [Ecotrin Low Dose] 81 mg PO DAILY 11/07/16 12/19/16 Cholecalciferol (Vitamin D3) 2,000 unit PO DAILY 11/07/16 12/19/16 [Vitamin D3] Abilify Odt 15 mg PO HS 12/19/16 12/19/16 Linagliptin [Tradjenta] 5 mg PO HS 12/19/16 12/19/16 Ranitidine HCl 150 mg PO DAILY 12/19/16 12/19/16 Sulfamethox-Tmp 800-160Mg [Bactrim 1 tab PO BID 12/19/16 12/19/16 DS 800-160 mg] Previous Rx's Medication Instructions Recorded Prasugrel [Effient] 10 mg PO DAILY tab 07/01/16 Allergies Allergy/AdvReac Type Severity Reaction Status Date / Time erythromycin base Allergy Severe Swelling Verified 11/07/16 20:45 [Erythromycin Base] codeine Allergy Unknown Swelling Verified 11/07/16 20:45 meclizine Allergy Unknown Unknown Verified 11/07/16 20:45 Penicillins Allergy Unknown Rash/Hives Verified 11/07/16 20:45 shellfish derived Allergy Unknown Anaphylaxis Verified 11/07/16 20:45 Fish Containing Products Allergy Anaphylaxis Verified 11/07/16 20:45 [Fish] Iodinated Contrast- Oral and Allergy Anaphylaxis Verified 11/07/16 20:45 IV Dye cephalexin monohydrate AdvReac Unknown Nausea & Verified 11/07/16 20:45 [From Keflex] Vomiting naproxen AdvReac Unknown Compromises Verified 11/07/16 20:45 Kidney Function atorvastatin calcium AdvReac Myalgia Verified 11/07/16 20:45 [From Lipitor] hydrocodone [From [place]] AdvReac Rapid Verified 11/07/16 20:45 Heart Rate Review of Systems ROS Statement: Those systems with pertinent positive or pertinent negative responses have been documented in the HPI. ROS Other: All systems not noted in ROS Statement are negative. Respiratory: Denies: cough Cardiovascular: Reports: chest pain Gastrointestinal: Reports: nausea, vomiting, diarrhea. Denies: abdominal pain Past Medical History Past Medical History: Coronary Artery Disease (CAD), Chest Pain / Angina, Heart Failure, CVA/TIA, Diabetes Mellitus, GERD/Reflux, Hyperlipidemia, Hypertension, Myocardial Infarction (MD), Osteoarthritis (OA), Pneumonia, Skin Disorder, Sleep Apnea/CPAP/BIPAP Additional Past Medical History / Comment(s): HX: Coronary artery disease with multiple vessel disease, ischemic cardiomyopathy, diabetic neuropathy bilateral hands and feet, hypertension hypertensive cardiovascular disease, chronic gastritis, chronic back pain, depression with hx of suicide attempts, GASTROPARESIS, PSORIASES,NIDDM type II. Last Myocardial Infarction Date:: 06/03/16 per pt. 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 Past Anesthesia/Blood Transfusion Reactions: No Reported Reaction Additional Past Anesthesia/Blood Transfusion Reaction / Comment(s): . Date of Last Stent Placement:: 06/03/16 Type of Cardiac Device: Biventricular Pacemaker, AICD Device Placement Date:: 09/19/15 Past Psychological History: Anxiety, Depression, PTSD Smoking Status: Never smoker Past Alcohol Use History: None Reported Past Drug Use History: None Reported - Past Family History Mother Family Medical History: Coronary Artery Disease (CAD), Myocardial Infarction (MD ) Additional Family Medical History / Comment(s): 7 MD and faulty heart valve. Pt does not know the age when mother had her MIs. Father History Unknown: Yes Additional Family Medical History / Comment(s): Does not know who father is Brother(s) Family Medical History: Congestive Heart Failure (CHF), Myocardial Infarction ( MD) Additional Family Medical History / Comment(s): Parkinsons. Pt does not know at what age his brother had a MD Patient has Family Medical History: No Reported History Additional Family Medical History / Comment(s): There is a strong family history for heart disease, hypertension, and diabetes. General Exam Limitations: no limitations General appearance: alert, in distress, other Head exam: Present: atraumatic, normocephalic Eye exam: Present: normal appearance, PERRL. Absent: scleral icterus ENT exam: Present: normal exam, mucous membranes dry Neck exam: Present: normal inspection, full ROM. Absent: meningismus Respiratory exam: Absent: normal lung sounds bilaterally, respiratory distress, wheezes, rales Cardiovascular Exam: Present: regular rate, normal rhythm GI/Abdominal exam: Present: soft. Absent: distended, tenderness Extremities exam: Present: normal inspection. Absent: normal capillary refill ( Delayed cap refill peripherally), pedal edema Back exam: Present: normal inspection Neurological exam: Present: alert, oriented X3, CN II-XII intact. Absent: motor sensory deficit Psychiatric exam: Present: normal affect, normal mood Skin exam: Present: warm, dry. Absent: cyanosis, diaphoretic Course Vital Signs 12/19/16 12/19/16 12/19/16 18:19 18:29 18:50 Temperature 97 F L Pulse Rate 89 69 67 Respiratory 18 18 18 Rate Blood Pressure 72/47 73/33 O2 Sat by Pulse 97 100 98 Oximetry 12/19/16 12/19/16 12/19/16 18:58 19:22 19:55 Temperature Pulse Rate 66 67 Respiratory 18 20 Rate Blood Pressure 65/29 60/30 80/45 O2 Sat by Pulse 98 99 Oximetry 12/19/16 12/19/16 12/19/16 20:01 20:15 20:30 Temperature Pulse Rate 68 67 66 Respiratory 18 18 20 Rate Blood Pressure 86/48 91/52 85/47 O2 Sat by Pulse 98 98 99 Oximetry 12/19/16 12/19/16 12/19/16 20:45 21:00 21:15 Temperature Pulse Rate 68 66 66 Respiratory 20 20 20 Rate Blood Pressure 89/51 89/56 87/54 O2 Sat by Pulse 98 98 99 Oximetry 12/19/16 12/19/16 12/19/16 21:30 21:45 22:16 Temperature Pulse Rate 68 Respiratory 20 Rate Blood Pressure 87/43 87/41 114/70 O2 Sat by Pulse 95 Oximetry - Reevaluation(s) Reevaluation #1: 12/19/16 22:27 Patient remains hypotensive despite 4 L of normal saline Reevaluation #2: 12/19/16 22:27 Patient complains of fatigue. He denies chest pain. EKG Findings - EKG Comments: EKG Findings:: EKG obtained at 1834 shows ventricular paced rhythm, ventricular rate is 68, SD interval 152, QRS duration 116, QTC 467, there is no discoordinated ST segment elevation in the precordium, Medical Decision Making - Medical Decision Making 40-year-old male presenting with chief complaint of nausea vomiting diarrhea and generalized weakness and fatigue. Patient's blood pressure is initially hypotensive. He remains hypotensive despite 4 L of normal saline. There is transient mild improvement into the 80s systolic from 60 systolic. Laboratory studies reveal a serum creatinine 1.79 which is elevated above the patient , there is a lactic acid of 3. Chest x-ray shows no pulmonary edema, patient does not require submental oxygen. IV hydration will be continued. Case is discussed with the pulmonary writing tutor and cardiology on-call and patient will be placed in the ICU, he is started on norepinephrine at the recommendation of cardiology. Given his poor ejection fraction and history of ischemic cardiomyopathy there is concern over fluid overloading the patient. Blood pressure does improve on minimal doses of norepinephrine while in the emergency department. Patient does have history of UTI and is treated with Bactrim as an outpatient. He will be continued on ceftriaxone for his UTI. Diagnosis: Hypovolemia, acute kidney injury, lactic acidosis, hypotension secondary to hypovolemia with shock - Lab Data Result diagrams: 12/19/16 18:34 12/19/16 18:34 Lab Results 12/19/16 12/19/16 12/19/16 Range/Units 18:34 18:34 18:34 WBC 7.0 (3.8-10.6) k/uL RBC 4.94 (4.30-5.90) m/uL Hgb 13.3 (13.0-17.5) gm/dL Hct 40.8 (39.0-53.0) % MCV 82.5 (80.0-100.0) fL MCH 27.0 (25.0-35.0) pg MCHC 32.7 (31.0-37.0) g/dL RDW 15.8 H (11.5-15.5) % Plt Count 240 (150-450) k/uL Neutrophils % 69 % Lymphocytes % 20 % Monocytes % 6 % Eosinophils % 3 % Basophils % 1 % Neutrophils # 4.9 (1.3-7.7) k/uL Lymphocytes # 1.4 (1.0-4.8) k/uL Monocytes # 0.4 (0-1.0) k/uL Eosinophils # 0.2 (0-0.7) k/uL Basophils # 0.1 (0-0.2) k/uL Hypochromasia Slight PT (9.0-12.0) sec INR (<1.2) APTT (22.0-30.0) sec Sodium 139 (137-145) mmol/L Potassium 4.6 (3.5-5.1) mmol/L Chloride 101 (98-107) mmol/L Carbon Dioxide 25 (22-30) mmol/L Anion Gap 13 mmol/L BUN 19 (9-20) mg/dL Creatinine 1.79 H (0.66-1.25) mg/dL Est GFR (MDRD) Af Amer 51 (>60 ml/min/1.73 sqM) Est GFR (MDRD) Non-Af 42 (>60 ml/min/1.73 sqM) Glucose 160 H (74-99) mg/dL POC Glucose (mg/dL) (75-99) mg/dL POC Glu Server Support Technician ID Lactic Ac Sepsis Rflx Plasma Lactic Acid [place] (0.7-2.0) mmol/L Calcium 9.6 (8.4-10.2) mg/dL Phosphorus 4.9 H (2.5-4.5) mg/dL Magnesium 1.4 L (1.6-2.3) mg/dL Total Bilirubin 0.5 (0.2-1.3) mg/dL AST 21 (17-59) U/L ALT 40 (21-72) U/L Alkaline Phosphatase 91 (38-126) U/L Total Creatine Kinase 84 (55-170) U/L CK-MB (CK-2) 2.2 (0.0-2.4) ng/mL CK-MB (CK-2) Rel Index 2.6 Troponin I 0.032 (0.000-0.034) ng/mL NT-Pro-B Natriuret Pep pg/mL Total Protein 6.5 (6.3-8.2) g/dL Albumin 4.0 (3.5-5.0) g/dL Urine Color Urine Appearance (Clear) Urine pH (5.0-8.0) Ur Specific [place] (1.001-1.035) Urine Protein (Negative) Urine Glucose (UA) (Negative) Urine Ketones (Negative) Urine Blood (Negative) Urine Nitrite (Negative) Urine Bilirubin (Negative) Urine Urobilinogen (<2.0) mg/dL Ur Leukocyte Esterase (Negative) Urine RBC (0-5) /hpf Urine WBC (0-5) /hpf Ur Squamous Epith Cells (0-4) /hpf Hyaline Casts (0-2) /lpf Urine Mucus (None) /hpf 12/19/16 12/19/16 12/19/16 Range/Units 18:34 18:34 18:34 WBC (3.8-10.6) k/uL RBC (4.30-5.90) m/uL Hgb (13.0-17.5) gm/dL Hct (39.0-53.0) % MCV (80.0-100.0) fL MCH (25.0-35.0) pg MCHC (31.0-37.0) g/dL RDW (11.5-15.5) % Plt Count (150-450) k/uL Neutrophils % % Lymphocytes % % Monocytes % % Eosinophils % % Basophils % % Neutrophils # (1.3-7.7) k/uL Lymphocytes # (1.0-4.8) k/uL Monocytes # (0-1.0) k/uL Eosinophils # (0-0.7) k/uL Basophils # (0-0.2) k/uL Hypochromasia PT 10.6 (9.0-12.0) sec INR 1.0 (<1.2) APTT 20.1 L (22.0-30.0) sec Sodium (137-145) mmol/L Potassium (3.5-5.1) mmol/L Chloride (98-107) mmol/L Carbon Dioxide (22-30) mmol/L Anion Gap mmol/L BUN (9-20) mg/dL Creatinine (0.66-1.25) mg/dL Est GFR (MDRD) Af Amer (>60 ml/min/1.73 sqM) Est GFR (MDRD) Non-Af (>60 ml/min/1.73 sqM) Glucose (74-99) mg/dL POC Glucose (mg/dL) (75-99) mg/dL POC Glu Server Support Technician ID Lactic Ac Sepsis Rflx Plasma Lactic Acid [place] 3.0 H* (0.7-2.0) mmol/L Calcium (8.4-10.2) mg/dL Phosphorus (2.5-4.5) mg/dL Magnesium (1.6-2.3) mg/dL Total Bilirubin (0.2-1.3) mg/dL AST (17-59) U/L ALT (21-72) U/L Alkaline Phosphatase (38-126) U/L Total Creatine Kinase (55-170) U/L CK-MB (CK-2) (0.0-2.4) ng/mL CK-MB (CK-2) Rel Index Troponin I (0.000-0.034) ng/mL NT-Pro-B Natriuret Pep 2190 pg/mL Total Protein (6.3-8.2) g/dL Albumin (3.5-5.0) g/dL Urine Color Urine Appearance (Clear) Urine pH (5.0-8.0) Ur Specific [place] (1.001-1.035) Urine Protein (Negative) Urine Glucose (UA) (Negative) Urine Ketones (Negative) Urine Blood (Negative) Urine Nitrite (Negative) Urine Bilirubin (Negative) Urine Urobilinogen (<2.0) mg/dL Ur Leukocyte Esterase (Negative) Urine RBC (0-5) /hpf Urine WBC (0-5) /hpf Ur Squamous Epith Cells (0-4) /hpf Hyaline Casts (0-2) /lpf Urine Mucus (None) /hpf 12/19/16 12/19/16 12/19/16 Range/Units 18:38 19:08 20:05 WBC (3.8-10.6) k/uL RBC (4.30-5.90) m/uL Hgb (13.0-17.5) gm/dL Hct (39.0-53.0) % MCV (80.0-100.0) fL MCH (25.0-35.0) pg MCHC (31.0-37.0) g/dL RDW (11.5-15.5) % Plt Count (150-450) k/uL Neutrophils % % Lymphocytes % % Monocytes % % Eosinophils % % Basophils % % Neutrophils # (1.3-7.7) k/uL Lymphocytes # (1.0-4.8) k/uL Monocytes # (0-1.0) k/uL Eosinophils # (0-0.7) k/uL Basophils # (0-0.2) k/uL Hypochromasia PT (9.0-12.0) sec INR (<1.2) APTT (22.0-30.0) sec Sodium (137-145) mmol/L Potassium (3.5-5.1) mmol/L Chloride (98-107) mmol/L Carbon Dioxide (22-30) mmol/L Anion Gap mmol/L BUN (9-20) mg/dL Creatinine (0.66-1.25) mg/dL Est GFR (MDRD) Af Amer (>60 ml/min/1.73 sqM) Est GFR (MDRD) Non-Af (>60 ml/min/1.73 sqM) Glucose (74-99) mg/dL POC Glucose (mg/dL) 185 H (75-99) mg/dL POC Glu Server Support Technician ID [place] Lactic Ac Sepsis Rflx Y Plasma Lactic Acid [place] (0.7-2.0) mmol/L Calcium (8.4-10.2) mg/dL Phosphorus (2.5-4.5) mg/dL Magnesium (1.6-2.3) mg/dL Total Bilirubin (0.2-1.3) mg/dL AST (17-59) U/L ALT (21-72) U/L Alkaline Phosphatase (38-126) U/L Total Creatine Kinase (55-170) U/L CK-MB (CK-2) (0.0-2.4) ng/mL CK-MB (CK-2) Rel Index Troponin I (0.000-0.034) ng/mL NT-Pro-B Natriuret Pep pg/mL Total Protein (6.3-8.2) g/dL Albumin (3.5-5.0) g/dL Urine Color Yellow Urine Appearance Cloudy (Clear) Urine pH 5.5 (5.0-8.0) Ur Specific [place] 1.014 (1.001-1.035) Urine Protein 2+ H (Negative) Urine Glucose (UA) 3+ H (Negative) Urine Ketones Negative (Negative) Urine Blood Trace H (Negative) Urine Nitrite Negative (Negative) Urine Bilirubin Negative (Negative) Urine Urobilinogen <2.0 (<2.0) mg/dL Ur Leukocyte Esterase Negative (Negative) Urine RBC 8 H (0-5) /hpf Urine WBC 2 (0-5) /hpf Ur Squamous Epith Cells 1 (0-4) /hpf Hyaline Casts 56 H (0-2) /lpf Urine Mucus Rare H (None) /hpf Critical Care Time Critical Care Time: Yes Total Critical Care Time: 95 Disposition Clinical Impression: Hypovolemic shock, Ischemic cardiomyopathy Disposition: ADMITTED IP TO THIS HOSP Condition: Serious Referrals: Junie New MD [Primary Care Provider] - 1-2 days Decision to Admit Reason: Admit from EC Decision Date: 12/19/16 Decision Time: 21:30
[2016-12-19 23:15] LABS: Glucose,Whole Blood 171 mg/dL (75-99)
[2016-12-19 23:26] LABS: Creatine Kinase MB 2.3 ng/mL (0.0-2.4); Troponin I 0.026 ng/mL (0.000-0.034)
[2016-12-20] MEDS ORDERED: Magnesium Replacement Protocol 1 EACH MISC MISCELLANE PRN ×2 (00:38→00:47)
[2016-12-20] MEDS: MAGNESIUM SULFATE-D5W PMX 1 GM in DEXTROSE/WATER 1 100ML.BAG IVPB SCH ×2 (01:12→02:15)
[2016-12-20 01:22] VITALS: BMI 38.5
[2016-12-20 01:55] LABS: Glucose,Whole Blood 213 mg/dL (75-99)
[2016-12-20] MEDS: SODIUM CHLORIDE 0.9% 1,000 ML IV SCH ×2 (01:58→16:13)
[2016-12-20] MEDS: INSULIN LISPRO (humaLOG) 300 UNIT/3 ML VIAL SQ SCH ×5 (02:39→21:31)
[2016-12-20 05:17] LABS: Basophils # (A) 0.1 k/uL (0-0.2); Basophils % (A) 1 %; CH 25.9; CHCM 29.4; Eosinophils # (A) 0.2 k/uL (0-0.7); Eosinophils % (A) 2 %; HDW 2.76; HGB 12.4 gm/dL (13.0-17.5); Hypochromasia Marked; Luc % (Auto) 2; Lymphocytes # (A) 2.3 k/uL (1.0-4.8); Lymphocytes % (A) 28 %; MCH 26.7 pg (25.0-35.0); MCHC 30.1 g/dL (31.0-37.0); Mean Platelet Volume 7.2; Monocytes # (A) 0.6 k/uL (0-1.0); Monocytes % (A) 7 %; Neutrophils % (A) 60 %; RBC 4.63 m/uL (4.30-5.90); RDW 15.9 % (11.5-15.5); WBC 8.4 k/uL (3.8-10.6); WBC (Perox) 8.51
[2016-12-20 05:23] LABS: MCV 88.6 fL (80.0-100.0)
[2016-12-20 05:40] LABS: Calcium 8.1 mg/dL (8.4-10.2); Magnesium 2.1 mg/dL (1.6-2.3); Phosphorous 4.6 mg/dL (2.5-4.5); Potassium 5.7 mmol/L (3.5-5.1)
[2016-12-20 05:47] LABS: Troponin I 0.017 ng/mL (0.000-0.034)
[2016-12-20 06:14] LABS: Creatine Kinase MB 2.7 ng/mL (0.0-2.4)
[2016-12-20 07:20] LABS: Glucose,Whole Blood 114 mg/dL (75-99)
[2016-12-20] MEDS: ESOMEPRAZOLE 20 MG in SODIUM CHLORIDE 0.9% 50 ML IVPB SCH (08:05)
[2016-12-20 12:05] LABS: Glucose,Whole Blood 162 mg/dL (75-99)
--- NOTE | 2016-12-20 12:27 | P.CNPUL ---
History of Present Illness Consult date: 12/20/16 Requesting physician: Jose M Gallagher Reason for consult: other (Critical care management) Chief complaint: Fatigue, lightheadedness, nausea, vomiting, diarrhea History of present illness: This is a very pleasant 40-year-old gentleman who follows with Dr. Junie Clay as his primary care physician. He has a history of coronary artery disease with stent placements most recently in May 2016 Fabio Aguilar not requiring intervention, severe ischemic cardiomyopathy status post AICD placement echocardiogram in September 2016 revealed ejection fraction 35-40%, diabetes mellitus, diabetic neuropathy, hypertension, hyperlipidemia, CVA/TIA, depression with previous suicide attempts, chronic gastritis, gastroparesis, MRSA infection on the face. He also has a history of obstructive sleep apnea but apparently does not utilize his CPAP machine at home. He had presented to the emergency room last evening with complaints of fatigue and lightheadedness. He had also been having issues with nausea and vomiting along with some diarrhea. He had been treated for urinary tract infection and was placed on Bactrim. His urine culture is pending. He was initially quite hypotensive with a systolic blood pressure in the 60s and 70s and was admitted to the intensive care unit for the same. He had received 2 L of fluid resuscitation He was initiated on norepinephrine which is currently been titrated down to 3 mcg/m. He has a 0.9 normal saline at 75 MLS per hour. His current blood pressure is 119/70. No significant arrhythmias. He has been afebrile. No leukocytosis. Current creatinine 1.70, potassium 5.4 . Troponins 0.032, 0.026 , 0.017. ProBNP 2190. He is maintaining good O2 saturations in the 90s on 2 L/ m per nasal cannula. His x-ray reveals evidence of cardiomegaly without acute congestive heart failure or other acute pulmonary processes. He is currently awake and alert. He denies any chest pain, palpitations, lightheadedness or dizziness. No shortness of breath. He is currently on ceftriaxone. Review of Systems 14 point review of system is all negative other than as mentioned in the HPI. Past Medical History Past Medical History: Coronary Artery Disease (CAD), Chest Pain / Angina, Heart Failure, CVA/TIA, Diabetes Mellitus, GERD/Reflux, Hyperlipidemia, Hypertension, Myocardial Infarction (ME), Osteoarthritis (OA), Pneumonia, Skin Disorder, Sleep Apnea/CPAP/BIPAP Additional Past Medical History / Comment(s): HX: Coronary artery disease with multiple vessel disease, ischemic cardiomyopathy, diabetic neuropathy bilateral hands and feet, hypertension hypertensive cardiovascular disease, chronic gastritis, chronic back pain, depression with hx of suicide attempts, GASTROPARESIS, PSORIASES,NIDDM type II. Last Myocardial Infarction Date:: 06/03/16 per pt. 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 Past Anesthesia/Blood Transfusion Reactions: No Reported Reaction Additional Past Anesthesia/Blood Transfusion Reaction / Comment(s): . Date of Last Stent Placement:: 06/03/16 Type of Cardiac Device: Biventricular Pacemaker, AICD Device Placement Date:: 09/19/15 Smoking Status: Never smoker - Past Family History Mother Family Medical History: Coronary Artery Disease (CAD), Myocardial Infarction (ME ) Additional Family Medical History / Comment(s): 7 ME and faulty heart valve. Pt does not know the age when mother had her MIs. Father History Unknown: Yes Additional Family Medical History / Comment(s): Does not know who father is Brother(s) Family Medical History: Congestive Heart Failure (CHF), Myocardial Infarction ( ME) Additional Family Medical History / Comment(s): Parkinsons. Pt does not know at what age his brother had a ME Patient has Family Medical History: No Reported History Additional Family Medical History / Comment(s): There is a strong family history for heart disease, hypertension, and diabetes. Medications and Allergies Home Medications Medication Instructions Recorded Confirmed Type Nitroglycerin Sl Tabs [Nitrostat] 0.4 mg SUBLINGUAL Q5M PRN 10/13/13 12/19/16 History Sertraline HCl [Zoloft] 200 mg PO DAILY 10/13/13 12/19/16 History Furosemide [Lasix] 40 mg PO DAILY 05/21/15 12/19/16 History metFORMIN HCL 1,000 mg PO BID 07/03/15 12/19/16 History Omeprazole [PriLOSEC] 40 mg PO HS 08/13/15 12/19/16 History Baclofen [Lioresal] 10 mg PO AC-TID PRN 01/13/16 12/19/16 History Dulaglutide [Trulicity] 1.5 mg SQ OROZCO 03/10/16 12/19/16 History Glimepiride 4 mg PO BID 03/10/16 12/19/16 History Rosuvastatin Calcium 40 mg PO HS 05/05/16 12/19/16 History Lisinopril [Zestril] 2.5 mg PO DAILY 06/01/16 12/19/16 History Acarbose [Precose] 25 mg PO BID 06/09/16 12/19/16 History Gabapentin [Neurontin] 300 mg PO BID 06/09/16 12/19/16 History Ranolazine [Ranexa] 1,000 mg PO BID 06/09/16 12/19/16 History Primidone [Mysoline] 100 mg PO HS 06/30/16 12/19/16 History Loperamide [Imodium] 2 mg PO TID PRN 10/20/16 12/19/16 History Metoprolol Tartrate 50 mg PO BID 10/20/16 12/19/16 History Aspirin EC [Ecotrin Low Dose] 81 mg PO DAILY 11/07/16 12/19/16 History Cholecalciferol (Vitamin D3) 2,000 unit PO DAILY 11/07/16 12/19/16 History [Vitamin D3] Abilify Odt 15 mg PO HS 12/19/16 12/19/16 History Linagliptin [Tradjenta] 5 mg PO HS 12/19/16 12/19/16 History Ranitidine HCl 150 mg PO DAILY 12/19/16 12/19/16 History Sulfamethox-Tmp 800-160Mg [Bactrim 1 tab PO BID 12/19/16 12/19/16 History DS 800-160 mg] Allergies Allergy/AdvReac Type Severity Reaction Status Date / Time erythromycin base Allergy Severe Swelling Verified 11/07/16 20:45 [Erythromycin Base] codeine Allergy Unknown Swelling Verified 11/07/16 20:45 meclizine Allergy Unknown Unknown Verified 11/07/16 20:45 Penicillins Allergy Unknown Rash/Hives Verified 11/07/16 20:45 shellfish derived Allergy Unknown Anaphylaxis Verified 11/07/16 20:45 Fish Containing Products Allergy Anaphylaxis Verified 11/07/16 20:45 [Fish] Iodinated Contrast- Oral and Allergy Anaphylaxis Verified 11/07/16 20:45 IV Dye cephalexin monohydrate AdvReac Unknown Nausea & Verified 11/07/16 20:45 [From Keflex] Vomiting naproxen AdvReac Unknown Compromises Verified 11/07/16 20:45 Kidney Function atorvastatin calcium AdvReac Myalgia Verified 11/07/16 20:45 [From Lipitor] hydrocodone [From [place]] AdvReac Rapid Verified 11/07/16 20:45 Heart Rate Physical Exam Vitals: Vital Signs Temp Pulse Resp BP BP Pulse Ox 12/20/16 10:00 84 18 106/68 93 L 12/20/16 09:00 81 20 119/70 94 L 12/20/16 08:00 98.1 F 82 12 117/79 98 12/20/16 07:00 81 20 123/71 93 L 12/20/16 06:00 75 14 93/51 98 12/20/16 05:00 76 20 115/65 100 12/20/16 04:00 97.6 F 78 20 111/62 100 12/20/16 03:31 18 12/20/16 03:20 75 18 117/64 12/20/16 03:10 73 21 95/60 96 12/20/16 03:00 73 23 108/55 97 12/20/16 02:50 75 20 108/55 85 L 12/20/16 02:40 71 20 93/60 97 12/20/16 02:30 75 19 93/60 79 L 12/20/16 02:20 73 23 104/64 100 12/20/16 02:10 71 16 104/58 100 12/20/16 02:00 67 15 104/58 100 12/20/16 01:50 71 21 121/69 100 12/20/16 01:40 68 12 114/65 100 12/20/16 01:30 69 18 114/65 100 12/20/16 01:21 98.1 F 16 115/72 100 12/20/16 01:20 67 16 119/72 100 12/20/16 01:10 73 20 106/56 93 L 12/20/16 01:00 73 17 106/56 93 L 12/20/16 00:50 71 14 96/80 99 12/20/16 00:00 97.6 F 70 16 104/58 100 12/19/16 23:25 96 12/19/16 23:12 98.1 F 69 18 105/65 100 12/19/16 22:51 70 20 115/57 96 12/19/16 22:30 68 20 100/57 94 L 12/19/16 22:16 114/70 12/19/16 21:45 68 20 87/41 95 12/19/16 21:30 87/43 12/19/16 21:15 66 20 87/54 99 12/19/16 21:00 66 20 89/56 98 12/19/16 20:45 68 20 89/51 98 12/19/16 20:30 66 20 85/47 99 12/19/16 20:15 67 18 91/52 98 12/19/16 20:01 68 18 86/48 98 12/19/16 19:55 67 20 80/45 99 12/19/16 19:22 60/30 12/19/16 18:58 66 18 65/29 98 12/19/16 18:50 67 18 73/33 98 12/19/16 18:29 69 18 72/47 100 12/19/16 18:19 97 F L 89 18 97 Intake and Output 12/19/16 12/20/16 12/20/16 22:59 06:59 14:59 Intake Total 4200 650.000 375 Output Total 465 885 Balance 4200 185.000 -510 Intake: IV 525 375 0.9 @75 525 375 Amount of Fluid Infused ( 4200 ml) Intake, IV Titration 125.000 Amount Norepinephrin 4 mg-0.9% 125.000 Ns Pmx 4 mg In 250 ml @ Titrate IV .Q0M [facility] Rx#: [id number] Output: Urine 465 885 Other: Voiding Method Indwelling Catheter Indwelling Catheter Weight 99.79 kg 120.5 kg GENERAL EXAM: Alert, comfortable in no apparent distress. HEAD: Normocephalic. EYES: Normal reaction of pupils, equal size. NOSE: Clear with pink turbinates. THROAT: There is crowding of the posterior pharynx. No erythema or exudates. NECK: Short. No masses, no JVD. CHEST: No chest wall deformity. LUNGS: Equal air entry with no crackles, wheeze, rhonchi or dullness. CVS: S1 and S2 normal with an audible murmur, regular rhythm with ventricular pacing. ABDOMEN: Obese. No hepatosplenomegaly, normal bowel sounds, no guarding or rigidity. SPINE: No scoliosis or deformity SKIN: No rashes CENTRAL NERVOUS SYSTEM: No focal deficits, tone is normal in all 4 extremities. Extremities: There is trace peripheral edema. No clubbing, no cyanosis. Peripheral pulses are intact. Results - Laboratory Findings CBC and BMP: 12/20/16 04:29 12/20/16 10:01 PT/INR, D-dimer PT 10.6 sec (9.0-12.0) 12/19/16 18:34 INR 1.0 (<1.2) 12/19/16 18:34 Abnormal lab findings: Abnormal Labs 12/19/16 12/19/16 12/19/16 18:34 18:34 18:34 Hgb MCHC RDW 15.8 H APTT Potassium Chloride Carbon Dioxide BUN Creatinine 1.79 H Glucose 160 H POC Glucose (mg/dL) Plasma Lactic Acid [place] 3.0 H* Calcium Phosphorus 4.9 H Magnesium 1.4 L CK-MB (CK-2) Urine Protein Urine Glucose (UA) Urine Blood Urine RBC Hyaline Casts Urine Mucus 12/19/16 12/19/16 12/19/16 18:34 18:38 20:05 Hgb MCHC RDW APTT 20.1 L Potassium Chloride Carbon Dioxide BUN Creatinine Glucose POC Glucose (mg/dL) 185 H Plasma Lactic Acid [place] Calcium Phosphorus Magnesium CK-MB (CK-2) Urine Protein 2+ H Urine Glucose (UA) 3+ H Urine Blood Trace H Urine RBC 8 H Hyaline Casts 56 H Urine Mucus Rare H 12/19/16 12/20/16 12/20/16 23:12 01:53 04:29 Hgb 12.4 L MCHC 30.1 L RDW 15.9 H APTT Potassium Chloride Carbon Dioxide BUN Creatinine Glucose POC Glucose (mg/dL) 171 H 213 H Plasma Lactic Acid Tim[place] Calcium Phosphorus Magnesium CK-MB (CK-2) Urine Protein Urine Glucose (UA) Urine Blood Urine RBC Hyaline Casts Urine Mucus 12/20/16 12/20/16 12/20/16 04:29 04:29 07:19 Hgb MCHC RDW APTT Potassium 5.7 H Chloride 108 H Carbon Dioxide 17 L BUN 23 H Creatinine 1.70 H Glucose 180 H POC Glucose (mg/dL) 114 H Plasma Lactic Acid Tim[place] Calcium 8.1 L Phosphorus 4.6 H Magnesium CK-MB (CK-2) 2.7 H* Urine Protein Urine Glucose (UA) Urine Blood Urine RBC Hyaline Casts Urine Mucus 12/20/16 10:01 Hgb MCHC RDW APTT Potassium 5.4 H Chloride Carbon Dioxide BUN Creatinine Glucose POC Glucose (mg/dL) Plasma Lactic Acid Tim[place] Calcium Phosphorus Magnesium CK-MB (CK-2) Urine Protein Urine Glucose (UA) Urine Blood Urine RBC Hyaline Casts Urine Mucus - Diagnostic Findings Chest x-ray: image reviewed Assessment and Plan Plan: Impression: #1 Sepsis with septic shock requiring fluid resuscitation and norepinephrine secondary to urinary tract infection #2 Acute kidney injury secondary to dehydration, current creatinine 1.70. #3 Coronary artery disease with history of multiple stent placements. Followed by Dr. Peres at [facility], most recent cardiac cath in May 2016 did not reveal significant stenosis. #4 Ischemic cardiomyopathy status post AICD placement, post recent echocardiogram in September 2016 revealed ejection fraction 35-40%. #5 History of systolic congestive heart failure. #6 History of hypertension. #7 Hyperlipidemia. #8 Diabetes mellitus. #9 Diabetic neuropathy. #10 Diabetic gastroparesis. #11 History of CVA/TIA. #12 History of depression with multiple suicide attempts with insulin in the past. #13 History of obstructive sleep apnea, noncompliant with CPAP. Plan: The patient was seen and evaluated by Dr. Ibarra. His chest x-ray and labs were reviewed. We'll continue with norepinephrine for pressor support to keep mean arterial pressures greater than 65. Continue antibiotics in the form of ceftriaxone. Await urine culture. Await blood cultures. Heparin for DVT prophylaxis. Nexium for GI prophylaxis. Continue to monitor him here in the intensive care unit. We'll continue to follow and make further recommendations based on his clinical status. Time with Patient: Greater than 30
[2016-12-20] MEDS ORDERED: BACLOFEN 10 MG TAB PO PRN (15:57)
--- NOTE | 2016-12-20 16:01 | P.HPIM ---
History of Present Illness H&P Date: 12/20/16 This is a very pleasant 40-year-old gentleman who follows with Dr. Junie Clay as his primary care physician. He has a history of coronary artery disease with stent placements most recently in May 2016 [facility] not requiring intervention, severe ischemic cardiomyopathy status post AICD placement echocardiogram in September 2016 revealed ejection fraction 35-40%, diabetes mellitus, diabetic neuropathy, hypertension, hyperlipidemia, CVA/TIA, depression with previous suicide attempts, chronic gastritis, gastroparesis, MRSA infection on the face. He also has a history of obstructive sleep apnea but apparently does not utilize his CPAP machine at home. He had presented to the emergency room last evening with complaints of fatigue and lightheadedness. He had also been having issues with nausea and vomiting along with some diarrhea. He had been treated for urinary tract infection and was placed on Bactrim. His urine culture is pending. He was initially quite hypotensive with a systolic blood pressure in the 60s and 70s and was admitted to the intensive care unit for the same. He had received 2 L of fluid resuscitation He was initiated on norepinephrine which was tapered off Pt was doing well till yesterday evening, apparently took all his medications, however only consumed one mountain dew NO fevers, chills, nausea, vomiting, abdominal pain, diarrhea, recent change in medications are reported Review of Systems All systems: negative (noted in HPI) Past Medical History Past Medical History: Coronary Artery Disease (CAD), Chest Pain / Angina, Heart Failure, CVA/TIA, Diabetes Mellitus, GERD/Reflux, Hyperlipidemia, Hypertension, Myocardial Infarction (ID), Osteoarthritis (OA), Pneumonia, Skin Disorder, Sleep Apnea/CPAP/BIPAP Additional Past Medical History / Comment(s): HX: Coronary artery disease with multiple vessel disease, ischemic cardiomyopathy, diabetic neuropathy bilateral hands and feet, hypertension hypertensive cardiovascular disease, chronic gastritis, chronic back pain, depression with hx of suicide attempts, GASTROPARESIS, PSORIASES,NIDDM type II. Last Myocardial Infarction Date:: 06/03/16 per pt. 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 Past Anesthesia/Blood Transfusion Reactions: No Reported Reaction Additional Past Anesthesia/Blood Transfusion Reaction / Comment(s): . Date of Last Stent Placement:: 06/03/16 Type of Cardiac Device: Biventricular Pacemaker, AICD Device Placement Date:: 09/19/15 Smoking Status: Never smoker - Past Family History Mother Family Medical History: Coronary Artery Disease (CAD), Myocardial Infarction (ID ) Additional Family Medical History / Comment(s): 7 ID and faulty heart valve. Pt does not know the age when mother had her MIs. Father History Unknown: Yes Additional Family Medical History / Comment(s): Does not know who father is Brother(s) Family Medical History: Congestive Heart Failure (CHF), Myocardial Infarction ( ID) Additional Family Medical History / Comment(s): Parkinsons. Pt does not know at what age his brother had a ID Patient has Family Medical History: No Reported History Additional Family Medical History / Comment(s): There is a strong family history for heart disease, hypertension, and diabetes. Medications and Allergies Home Medications Medication Instructions Recorded Confirmed Type Nitroglycerin Sl Tabs [Nitrostat] 0.4 mg SUBLINGUAL Q5M PRN 10/13/13 12/19/16 History Sertraline HCl [Zoloft] 200 mg PO DAILY 10/13/13 12/19/16 History Furosemide [Lasix] 40 mg PO DAILY 05/21/15 12/19/16 History metFORMIN HCL 1,000 mg PO BID 07/03/15 12/19/16 History Omeprazole [PriLOSEC] 40 mg PO HS 08/13/15 12/19/16 History Baclofen [Lioresal] 10 mg PO AC-TID PRN 01/13/16 12/19/16 History Dulaglutide [Trulicity] 1.5 mg SQ OROZCO 03/10/16 12/19/16 History Glimepiride 4 mg PO BID 03/10/16 12/19/16 History Rosuvastatin Calcium 40 mg PO HS 05/05/16 12/19/16 History Lisinopril [Zestril] 2.5 mg PO DAILY 06/01/16 12/19/16 History Acarbose [Precose] 25 mg PO BID 06/09/16 12/19/16 History Gabapentin [Neurontin] 300 mg PO BID 06/09/16 12/19/16 History Ranolazine [Ranexa] 1,000 mg PO BID 06/09/16 12/19/16 History Primidone [Mysoline] 100 mg PO HS 06/30/16 12/19/16 History Loperamide [Imodium] 2 mg PO TID PRN 10/20/16 12/19/16 History Metoprolol Tartrate 50 mg PO BID 10/20/16 12/19/16 History Aspirin EC [Ecotrin Low Dose] 81 mg PO DAILY 11/07/16 12/19/16 History Cholecalciferol (Vitamin D3) 2,000 unit PO DAILY 11/07/16 12/19/16 History [Vitamin D3] Abilify Odt 15 mg PO HS 12/19/16 12/19/16 History Linagliptin [Tradjenta] 5 mg PO HS 12/19/16 12/19/16 History Ranitidine HCl 150 mg PO DAILY 12/19/16 12/19/16 History Sulfamethox-Tmp 800-160Mg [Bactrim 1 tab PO BID 12/19/16 12/19/16 History DS 800-160 mg] Allergies Allergy/AdvReac Type Severity Reaction Status Date / Time erythromycin base Allergy Severe Swelling Verified 11/07/16 20:45 [Erythromycin Base] codeine Allergy Unknown Swelling Verified 11/07/16 20:45 meclizine Allergy Unknown Unknown Verified 11/07/16 20:45 Penicillins Allergy Unknown Rash/Hives Verified 11/07/16 20:45 shellfish derived Allergy Unknown Anaphylaxis Verified 11/07/16 20:45 Fish Containing Products Allergy Anaphylaxis Verified 11/07/16 20:45 [Fish] Iodinated Contrast- Oral and Allergy Anaphylaxis Verified 11/07/16 20:45 IV Dye cephalexin monohydrate AdvReac Unknown Nausea & Verified 11/07/16 20:45 [From Keflex] Vomiting naproxen AdvReac Unknown Compromises Verified 11/07/16 20:45 Kidney Function atorvastatin calcium AdvReac Myalgia Verified 11/07/16 20:45 [From Lipitor] hydrocodone [From [place]] AdvReac Rapid Verified 11/07/16 20:45 Heart Rate Physical Exam Vitals: Vital Signs Temp Pulse Resp BP BP Pulse Ox 12/20/16 15:00 77 15 114/56 100 12/20/16 14:00 84 14 100/67 98 12/20/16 13:00 81 12 98/52 97 12/20/16 12:00 98 F 80 18 118/55 96 12/20/16 11:00 80 19 116/59 93 L 12/20/16 10:00 84 18 106/68 93 L 12/20/16 09:00 81 20 119/70 94 L 12/20/16 08:00 98.1 F 82 12 117/79 98 12/20/16 07:00 81 20 123/71 93 L 12/20/16 06:00 75 14 93/51 98 12/20/16 05:00 76 20 115/65 100 12/20/16 04:00 97.6 F 78 20 111/62 100 12/20/16 03:31 18 12/20/16 03:20 75 18 117/64 12/20/16 03:10 73 21 95/60 96 12/20/16 03:00 73 23 108/55 97 12/20/16 02:50 75 20 108/55 85 L 12/20/16 02:40 71 20 93/60 97 12/20/16 02:30 75 19 93/60 79 L 12/20/16 02:20 73 23 104/64 100 12/20/16 02:10 71 16 104/58 100 12/20/16 02:00 67 15 104/58 100 12/20/16 01:50 71 21 121/69 100 12/20/16 01:40 68 12 114/65 100 12/20/16 01:30 69 18 114/65 100 12/20/16 01:21 98.1 F 16 115/72 100 12/20/16 01:20 67 16 119/72 100 12/20/16 01:10 73 20 106/56 93 L 12/20/16 01:00 73 17 106/56 93 L 12/20/16 00:50 71 14 96/80 99 12/20/16 00:00 97.6 F 70 16 104/58 100 12/19/16 23:25 96 12/19/16 23:12 98.1 F 69 18 105/65 100 12/19/16 22:51 70 20 115/57 96 12/19/16 22:30 68 20 100/57 94 L 12/19/16 22:16 114/70 12/19/16 21:45 68 20 87/41 95 12/19/16 21:30 87/43 12/19/16 21:15 66 20 87/54 99 12/19/16 21:00 66 20 89/56 98 12/19/16 20:45 68 20 89/51 98 12/19/16 20:30 66 20 85/47 99 12/19/16 20:15 67 18 91/52 98 12/19/16 20:01 68 18 86/48 98 12/19/16 19:55 67 20 80/45 99 12/19/16 19:22 60/30 12/19/16 18:58 66 18 65/29 98 12/19/16 18:50 67 18 73/33 98 12/19/16 18:29 69 18 72/47 100 12/19/16 18:19 97 F L 89 18 97 Intake and Output 12/20/16 12/20/16 12/20/16 06:59 14:59 22:59 Intake Total 650.000 600 75 Output Total 465 1485 Balance 185.000 -885 75 Intake: IV 525 600 75 0.9 @75 525 600 75 Intake, IV Titration 125.000 Amount Norepinephrin 4 mg-0.9% 125.000 Ns Pmx 4 mg In 250 ml @ Titrate IV .Q0M [facility] Rx#: [id number] Output: Urine 465 1485 Other: Voiding Method Indwelling Catheter Indwelling Catheter Urinal Weight 120.5 kg - Constitutional General appearance: no acute distress - EENT Eyes: PERRLA - Respiratory Respiratory: bilateral: CTA, negative: dullness, rales, rhonchi - Cardiovascular Rhythm: regular Heart sounds: normal: S1, S2 Abnormal Heart Sounds: no systolic murmur - Gastrointestinal General gastrointestinal: normal bowel sounds, no organomegaly, soft - Genitourinary oconnell in place - Neurologic Neurologic: CNII-XII intact - Psychiatric Psychiatric: A&O x's 3 Results CBC & Chem 7: 12/20/16 04:29 12/20/16 10:01 Labs: Abnormal Lab Results - Last 24 Hours (Table) 12/19/16 12/19/16 12/19/16 Range/Units 18:34 18:34 18:34 Hgb (13.0-17.5) gm/dL MCHC (31.0-37.0) g/dL RDW 15.8 H (11.5-15.5) % APTT (22.0-30.0) sec Potassium (3.5-5.1) mmol/L Chloride (98-107) mmol/L Carbon Dioxide (22-30) mmol/L BUN (9-20) mg/dL Creatinine 1.79 H (0.66-1.25) mg/dL Glucose 160 H (74-99) mg/dL POC Glucose (mg/dL) (75-99) mg/dL Plasma Lactic Acid Timbo 3.0 H* (0.7-2.0) mmol/L Calcium (8.4-10.2) mg/dL Phosphorus 4.9 H (2.5-4.5) mg/dL Magnesium 1.4 L (1.6-2.3) mg/dL CK-MB (CK-2) (0.0-2.4) ng/mL Urine Protein (Negative) Urine Glucose (UA) (Negative) Urine Blood (Negative) Urine RBC (0-5) /hpf Hyaline Casts (0-2) /lpf Urine Mucus (None) /hpf 12/19/16 12/19/16 12/19/16 Range/Units 18:34 18:38 20:05 Hgb (13.0-17.5) gm/dL MCHC (31.0-37.0) g/dL RDW (11.5-15.5) % APTT 20.1 L (22.0-30.0) sec Potassium (3.5-5.1) mmol/L Chloride (98-107) mmol/L Carbon Dioxide (22-30) mmol/L BUN (9-20) mg/dL Creatinine (0.66-1.25) mg/dL Glucose (74-99) mg/dL POC Glucose (mg/dL) 185 H (75-99) mg/dL Plasma Lactic Acid Timbo (0.7-2.0) mmol/L Calcium (8.4-10.2) mg/dL Phosphorus (2.5-4.5) mg/dL Magnesium (1.6-2.3) mg/dL CK-MB (CK-2) (0.0-2.4) ng/mL Urine Protein 2+ H (Negative) Urine Glucose (UA) 3+ H (Negative) Urine Blood Trace H (Negative) Urine RBC 8 H (0-5) /hpf Hyaline Casts 56 H (0-2) /lpf Urine Mucus Rare H (None) /hpf 12/19/16 12/20/16 12/20/16 Range/Units 23:12 01:53 04:29 Hgb 12.4 L (13.0-17.5) gm/dL MCHC 30.1 L (31.0-37.0) g/dL RDW 15.9 H (11.5-15.5) % APTT (22.0-30.0) sec Potassium (3.5-5.1) mmol/L Chloride (98-107) mmol/L Carbon Dioxide (22-30) mmol/L BUN (9-20) mg/dL Creatinine (0.66-1.25) mg/dL Glucose (74-99) mg/dL POC Glucose (mg/dL) 171 H 213 H (75-99) mg/dL Plasma Lactic Acid Timbo (0.7-2.0) mmol/L Calcium (8.4-10.2) mg/dL Phosphorus (2.5-4.5) mg/dL Magnesium (1.6-2.3) mg/dL CK-MB (CK-2) (0.0-2.4) ng/mL Urine Protein (Negative) Urine Glucose (UA) (Negative) Urine Blood (Negative) Urine RBC (0-5) /hpf Hyaline Casts (0-2) /lpf Urine Mucus (None) /hpf 12/20/16 12/20/16 12/20/16 Range/Units 04:29 04:29 07:19 Hgb (13.0-17.5) gm/dL MCHC (31.0-37.0) g/dL RDW (11.5-15.5) % APTT (22.0-30.0) sec Potassium 5.7 H (3.5-5.1) mmol/L Chloride 108 H (98-107) mmol/L Carbon Dioxide 17 L (22-30) mmol/L BUN 23 H (9-20) mg/dL Creatinine 1.70 H (0.66-1.25) mg/dL Glucose 180 H (74-99) mg/dL POC Glucose (mg/dL) 114 H (75-99) mg/dL Plasma Lactic Acid Timbo (0.7-2.0) mmol/L Calcium 8.1 L (8.4-10.2) mg/dL Phosphorus 4.6 H (2.5-4.5) mg/dL Magnesium (1.6-2.3) mg/dL CK-MB (CK-2) 2.7 H* (0.0-2.4) ng/mL Urine Protein (Negative) Urine Glucose (UA) (Negative) Urine Blood (Negative) Urine RBC (0-5) /hpf Hyaline Casts (0-2) /lpf Urine Mucus (None) /hpf 12/20/16 12/20/16 Range/Units 10:01 12:00 Hgb (13.0-17.5) gm/dL MCHC (31.0-37.0) g/dL RDW (11.5-15.5) % APTT (22.0-30.0) sec Potassium 5.4 H (3.5-5.1) mmol/L Chloride (98-107) mmol/L Carbon Dioxide (22-30) mmol/L BUN (9-20) mg/dL Creatinine (0.66-1.25) mg/dL Glucose (74-99) mg/dL POC Glucose (mg/dL) 162 H (75-99) mg/dL Plasma Lactic Acid Timbo (0.7-2.0) mmol/L Calcium (8.4-10.2) mg/dL Phosphorus (2.5-4.5) mg/dL Magnesium (1.6-2.3) mg/dL CK-MB (CK-2) (0.0-2.4) ng/mL Urine Protein (Negative) Urine Glucose (UA) (Negative) Urine Blood (Negative) Urine RBC (0-5) /hpf Hyaline Casts (0-2) /lpf Urine Mucus (None) /hpf Microbiology - Last 24 Hours (Table) 12/19/16 20:05 Urine Culture - Preliminary Urine,Clean Catch Thrombosis Risk Factor Assmnt - Choose All That Apply Any of the Below Risk Factors Present?: Yes Each Factor Represents 1 point: Medical pt on bed rest, Obesity (BMI >25) Other Risk Factors: No Other congenital or acquired thrombophilia - If yes, enter type in comment: No Thrombosis Risk Factor Assessment Total Risk Factor Score: 2 Thrombosis Risk Factor Assessment Level: Low Risk Assessment and Plan Plan: 1. Hypovolemic shock CHF with systolic dysfuntion, not acute DM2 BARTOLO, prerenal with ATN hyaline casts Chronic pain Peripheral neuropathy Obesity Ischemic cardiomyopathy Previous UTI Plan IVF titrated off the drip GI prophylaxis Likely multifactorail with eval of labs hyaline casts, pt is on diuretics and mild NAGMA, with BARTOLO. dehydration and use of diuretics , acarbose Close bp monitering await urine cultures Hold acorbose
--- NOTE | 2016-12-20 16:15 | P.CRDCN ---
History of Present Illness Consult date: 12/20/16 History of present illness: This is a 40-year-old gentleman with extensive cardiac history with multiple myocardial infarctions, stent placements. Apparently patient had cardiac catheterization in 2016. Apparently he did not require any intervention. This patient was being treated with Bactrim for urinary tract infection. He is mainly admitted with nausea, vomiting and hypotension and also history of diarrhea. Patient required IV fluids and also Levophed for blood pressure support. Patient seemed to be much more stable this morning. He did not have any chest pain. He did not have any shortness of breath. His creatinine was 1.79 on admission. His troponin levels are within normal limits. His proBNP is 2190. He doesn't seem to be in acute congestive heart failure. His symptoms at this time, appear to be related to the sepsis and UTI. Patient might have had a reaction to Bactrim also. No acute cardiac issues at this time Review of Systems As per the chart Past Medical History Past Medical History: Coronary Artery Disease (CAD), Chest Pain / Angina, Heart Failure, CVA/TIA, Diabetes Mellitus, GERD/Reflux, Hyperlipidemia, Hypertension, Myocardial Infarction ([place]), Osteoarthritis (OA), Pneumonia, Skin Disorder, Sleep Apnea/CPAP/BIPAP Additional Past Medical History / Comment(s): HX: Coronary artery disease with multiple vessel disease, ischemic cardiomyopathy, diabetic neuropathy bilateral hands and feet, hypertension hypertensive cardiovascular disease, chronic gastritis, chronic back pain, depression with hx of suicide attempts, GASTROPARESIS, PSORIASES,NIDDM type II. Last Myocardial Infarction Date:: 06/03/16 per pt. 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 Past Anesthesia/Blood Transfusion Reactions: No Reported Reaction Additional Past Anesthesia/Blood Transfusion Reaction / Comment(s): . Date of Last Stent Placement:: 06/03/16 Type of Cardiac Device: Biventricular Pacemaker, AICD Device Placement Date:: 09/19/15 Smoking Status: Never smoker - Past Family History Mother Family Medical History: Coronary Artery Disease (CAD), Myocardial Infarction ([place] ) Additional Family Medical History / Comment(s): 7 [place] and faulty heart valve. Pt does not know the age when mother had her MIs. Father History Unknown: Yes Additional Family Medical History / Comment(s): Does not know who father is Brother(s) Family Medical History: Congestive Heart Failure (CHF), Myocardial Infarction ( [place]) Additional Family Medical History / Comment(s): Parkinsons. Pt does not know at what age his brother had a [place] Patient has Family Medical History: No Reported History Additional Family Medical History / Comment(s): There is a strong family history for heart disease, hypertension, and diabetes. Medications and Allergies Home Medications Medication Instructions Recorded Confirmed Type Nitroglycerin Sl Tabs [Nitrostat] 0.4 mg SUBLINGUAL Q5M PRN 10/13/13 12/19/16 History Sertraline HCl [Zoloft] 200 mg PO DAILY 10/13/13 12/19/16 History Furosemide [Lasix] 40 mg PO DAILY 05/21/15 12/19/16 History metFORMIN HCL 1,000 mg PO BID 07/03/15 12/19/16 History Omeprazole [PriLOSEC] 40 mg PO HS 08/13/15 12/19/16 History Baclofen [Lioresal] 10 mg PO AC-TID PRN 01/13/16 12/19/16 History Dulaglutide [Trulicity] 1.5 mg SQ OROZCO 03/10/16 12/19/16 History Glimepiride 4 mg PO BID 03/10/16 12/19/16 History Rosuvastatin Calcium 40 mg PO HS 05/05/16 12/19/16 History Lisinopril [Zestril] 2.5 mg PO DAILY 06/01/16 12/19/16 History Acarbose [Precose] 25 mg PO BID 06/09/16 12/19/16 History Gabapentin [Neurontin] 300 mg PO BID 06/09/16 12/19/16 History Ranolazine [Ranexa] 1,000 mg PO BID 06/09/16 12/19/16 History Primidone [Mysoline] 100 mg PO HS 06/30/16 12/19/16 History Loperamide [Imodium] 2 mg PO TID PRN 10/20/16 12/19/16 History Metoprolol Tartrate 50 mg PO BID 10/20/16 12/19/16 History Aspirin EC [Ecotrin Low Dose] 81 mg PO DAILY 11/07/16 12/19/16 History Cholecalciferol (Vitamin D3) 2,000 unit PO DAILY 11/07/16 12/19/16 History [Vitamin D3] Abilify Odt 15 mg PO HS 12/19/16 12/19/16 History Linagliptin [Tradjenta] 5 mg PO HS 12/19/16 12/19/16 History Ranitidine HCl 150 mg PO DAILY 12/19/16 12/19/16 History Sulfamethox-Tmp 800-160Mg [Bactrim 1 tab PO BID 12/19/16 12/19/16 History DS 800-160 mg] Allergies Allergy/AdvReac Type Severity Reaction Status Date / Time erythromycin base Allergy Severe Swelling Verified 11/07/16 20:45 [Erythromycin Base] codeine Allergy Unknown Swelling Verified 11/07/16 20:45 meclizine Allergy Unknown Unknown Verified 11/07/16 20:45 Penicillins Allergy Unknown Rash/Hives Verified 11/07/16 20:45 shellfish derived Allergy Unknown Anaphylaxis Verified 11/07/16 20:45 Fish Containing Products Allergy Anaphylaxis Verified 11/07/16 20:45 [Fish] Iodinated Contrast- Oral and Allergy Anaphylaxis Verified 11/07/16 20:45 IV Dye cephalexin monohydrate AdvReac Unknown Nausea & Verified 11/07/16 20:45 [From Keflex] Vomiting naproxen AdvReac Unknown Compromises Verified 11/07/16 20:45 Kidney Function atorvastatin calcium AdvReac Myalgia Verified 11/07/16 20:45 [From Lipitor] hydrocodone [From [place]] AdvReac Rapid Verified 11/07/16 20:45 Heart Rate Physical Exam Vitals: Vital Signs Temp Pulse Resp BP BP Pulse Ox 12/20/16 15:00 77 15 114/56 100 12/20/16 14:00 84 14 100/67 98 12/20/16 13:00 81 12 98/52 97 12/20/16 12:00 98 F 80 18 118/55 96 12/20/16 11:00 80 19 116/59 93 L 12/20/16 10:00 84 18 106/68 93 L 12/20/16 09:00 81 20 119/70 94 L 12/20/16 08:00 98.1 F 82 12 117/79 98 12/20/16 07:00 81 20 123/71 93 L 12/20/16 06:00 75 14 93/51 98 12/20/16 05:00 76 20 115/65 100 12/20/16 04:00 97.6 F 78 20 111/62 100 12/20/16 03:31 18 12/20/16 03:20 75 18 117/64 12/20/16 03:10 73 21 95/60 96 12/20/16 03:00 73 23 108/55 97 12/20/16 02:50 75 20 108/55 85 L 12/20/16 02:40 71 20 93/60 97 12/20/16 02:30 75 19 93/60 79 L 12/20/16 02:20 73 23 104/64 100 12/20/16 02:10 71 16 104/58 100 12/20/16 02:00 67 15 104/58 100 12/20/16 01:50 71 21 121/69 100 12/20/16 01:40 68 12 114/65 100 12/20/16 01:30 69 18 114/65 100 12/20/16 01:21 98.1 F 16 115/72 100 12/20/16 01:20 67 16 119/72 100 12/20/16 01:10 73 20 106/56 93 L 12/20/16 01:00 73 17 106/56 93 L 12/20/16 00:50 71 14 96/80 99 12/20/16 00:00 97.6 F 70 16 104/58 100 12/19/16 23:25 96 12/19/16 23:12 98.1 F 69 18 105/65 100 12/19/16 22:51 70 20 115/57 96 12/19/16 22:30 68 20 100/57 94 L 12/19/16 22:16 114/70 12/19/16 21:45 68 20 87/41 95 12/19/16 21:30 87/43 12/19/16 21:15 66 20 87/54 99 07/28/17 21:00 66 20 89/56 98 12/19/16 20:45 68 20 89/51 98 12/19/16 20:30 66 20 85/47 99 12/19/16 20:15 67 18 91/52 98 12/19/16 20:01 68 18 86/48 98 12/19/16 19:55 67 20 80/45 99 12/19/16 19:22 60/30 12/19/16 18:58 66 18 65/29 98 12/19/16 18:50 67 18 73/33 98 12/19/16 18:29 69 18 72/47 100 12/19/16 18:19 97 F L 89 18 97 Intake and Output 12/20/16 12/20/16 12/20/16 06:59 14:59 22:59 Intake Total 650.000 600 75 Output Total 465 1485 Balance 185.000 -885 75 Intake: IV 525 600 75 0.9 @75 525 600 75 Intake, IV Titration 125.000 Amount Norepinephrin 4 mg-0.9% 125.000 Ns Pmx 4 mg In 250 ml @ Titrate IV .Q0M [facility] Rx#: [id number] Output: Urine 465 1485 Other: Voiding Method Indwelling Catheter Indwelling Catheter Urinal Weight 120.5 kg GENERAL EXAM: Patient is alert and oriented and doesn't appear to be in any acute distress HEENT: Normocephalic. Normal reaction of pupils, equal size, normal range of extraocular motion. No erythema or exudates in the throat. NECK: No masses, no nuchal rigidity. CHEST: No chest wall deformity. LUNGS: Equal air entry with no crackles or wheeze. HEART: S1 and S2 normal with no audible mumurs or gallops. Regular rhythm, femorals equal on both sides.. ABDOMEN: No hepatosplenomegaly, normal bowel sounds, no guarding or rigidity. SKIN: No rashes CENTRAL NERVOUS SYSTEM: No focal deficits. EXTREMITIES: No cyanosis, clubbing or edema. Results 12/20/16 04:29 12/20/16 10:01 Cardiac Enzymes 12/19/16 12/19/16 12/19/16 Range/Units 18:34 18:34 22:41 AST 21 (17-59) U/L CK-MB (CK-2) 2.2 2.3 (0.0-2.4) ng/mL Troponin I 0.032 0.026 (0.000-0.034) ng/mL 12/20/16 Range/Units 04:29 AST (17-59) U/L CK-MB (CK-2) 2.7 H* (0.0-2.4) ng/mL Troponin I 0.017 (0.000-0.034) ng/mL Coagulation 12/19/16 Range/Units 18:34 PT 10.6 (9.0-12.0) sec APTT 20.1 L (22.0-30.0) sec CBC 12/19/16 12/20/16 Range/Units 18:34 04:29 WBC 7.0 8.4 (3.8-10.6) k/uL RBC 4.94 4.63 (4.30-5.90) m/uL Hgb 13.3 12.4 L (13.0-17.5) gm/dL Hct 40.8 41.0 (39.0-53.0) % Plt Count 240 205 (150-450) k/uL Comprehensive Metabolic Panel 12/19/16 12/20/16 12/20/16 Range/Units 18:34 04:29 10:01 Sodium 139 137 (137-145) mmol/L Potassium 4.6 5.7 H 5.4 H (3.5-5.1) mmol/L Chloride 101 108 H (98-107) mmol/L Carbon Dioxide 25 17 L (22-30) mmol/L BUN 19 23 H (9-20) mg/dL Creatinine 1.79 H 1.70 H (0.66-1.25) mg/dL Glucose 160 H 180 H (74-99) mg/dL Calcium 9.6 8.1 L (8.4-10.2) mg/dL AST 21 (17-59) U/L ALT 40 (21-72) U/L Alkaline Phosphatase 91 (38-126) U/L Total Protein 6.5 (6.3-8.2) g/dL Albumin 4.0 (3.5-5.0) g/dL Current Medications Generic Name Dose Route Start Last Admin Trade Name Freq PRN Reason Stop Dose Admin Acetaminophen 650 mg 12/19/16 21:51 Tylenol Tab PO Q4HR PRN Fever and/or Mild Pain Aripiprazole 15 mg 12/20/16 21:00 Abilify PO HS JAKE Baclofen 10 mg 12/20/16 15:57 Lioresal PO AC-TID PRN Pain Norepinephrine Bitartrate 4 mg in 250 mls @ 0 mls/hr 12/19/16 21:45 12/20/16 06:05 Levophed-0.9% Nacl 4 Mg/250ml Pmx IV 3 mcg/min .Q0M JAKE 11.25 mls/hr Protocol Titration Titrate Esomeprazole Magnesium 20 mg/ 50 mls @ 100 mls/hr 12/20/16 09:00 12/20/16 08: 05 Sodium Chloride IVPB 100 mls/hr DAILY JAKE Administration Ceftriaxone Sodium 1,000 mg/ 50 mls @ 100 mls/hr 12/20/16 09:00 12/20/16 08: 05 Sodium Chloride IVPB 100 mls/hr Q24HR JAKE Administration Sodium Chloride 1,000 mls @ 75 mls/hr 12/20/16 01:00 12/20/16 01:58 Saline 0.9% IV 75 mls/hr .[id number] JAKE Administration Insulin Human Lispro 0 unit 12/20/16 02:00 12/20/16 12:43 Humalog SQ 2 unit [id number] JAKE Administration Protocol Metoprolol Tartrate 50 mg 12/20/16 21:00 Lopressor PO BID JAKE Miscellaneous Information 1 each 12/20/16 00:38 Magnesium Per Protocol MISCELLANE DAILY PRN Per Protocol Protocol Naloxone HCl 0.2 mg 12/19/16 21:51 Narcan IV Q2M PRN Opioid Reversal Non-Formulary Medication 40 mg 12/20/16 21:00 Rosuvastatin Calcium [Rosuvastatin Calcium] PO HS [facility] Prasugrel 10 mg 12/21/16 09:00 Effient PO DAILY [facility] Sertraline HCl 200 mg 12/21/16 09:00 Zoloft PO DAILY [facility] Intake and Output 12/20/16 12/20/16 12/20/16 06:59 14:59 22:59 Intake Total 650.000 600 75 Output Total 465 1485 Balance 185.000 -885 75 Intake: IV 525 600 75 0.9 @75 525 600 75 Intake, IV Titration 125.000 Amount Norepinephrin 4 mg-0.9% 125.000 Ns Pmx 4 mg In 250 ml @ Titrate IV .Q0M [facility] Rx#: [id number] Output: Urine 465 1485 Other: Voiding Method Indwelling Catheter Indwelling Catheter Urinal Weight 120.5 kg 12/20/16 04:29 12/20/16 10:01 EKG Interpretations (text) Showed sinus rhythm with evidence of biventricular pacemaker Assessment and Plan (1) AICD (automatic cardioverter/defibrillator) present Status: Acute (2) Hypovolemic shock Status: Acute (3) Ischemic cardiomyopathy Status: Acute (4) AICD (automatic cardioverter/defibrillator) present Status: Acute (5) Congestive heart failure Status: Acute (6) UTI (urinary tract infection) Status: Acute Plan: Continue the current supportive measures. Rule out sepsis. No acute cardiac issues are noted. His pacemaker seems to function normally. His troponin values are not size to of any acute myocardial injury pattern. Thank you
[2016-12-20 16:54] LABS: Glucose,Whole Blood 274 mg/dL (75-99)
[2016-12-20] MEDS ORDERED: ARIPiprazole 15 MG TAB PO SCH (21:00)
[2016-12-20] MEDS ORDERED: ROSUVASTATIN CALCIUM 40 MG PO SCH (21:00)
[2016-12-20] MEDS: METOPROLOL TARTRATE 50 MG TAB PO SCH (21:29)
[2016-12-20 21:32] LABS: Glucose,Whole Blood 287 mg/dL (75-99)
[2016-12-21] MEDS: SODIUM CHLORIDE 0.9% 1,000 ML IV SCH (03:38)
[2016-12-21] MEDS: INSULIN LISPRO (humaLOG) 300 UNIT/3 ML VIAL SQ SCH ×3 (03:38→13:17)
[2016-12-21 04:45] LABS: Anisocytosis Slight; Basophils % (A) 1 %; CH 26.7; CHCM 31.4; Eosinophils # (A) 0.2 k/uL (0-0.7); Eosinophils % (A) 4 %; HCT 34.4 % (39.0-53.0); HDW 2.81; HGB 10.7 gm/dL (13.0-17.5); Hypochromasia Slight; Luc # (Auto) 0.16; Luc % (Auto) 4; Lymphocytes # (A) 1.4 k/uL (1.0-4.8); Lymphocytes % (A) 32 %; MCH 26.5 pg (25.0-35.0); MCHC 31.1 g/dL (31.0-37.0); MCV 85.5 fL (80.0-100.0); Mean Platelet Volume 7.6; Monocytes # (A) 0.2 k/uL (0-1.0); Monocytes % (A) 5 %; Neutrophils # (A) 2.4 k/uL (1.3-7.7); Neutrophils % (A) 55 %; RBC 4.02 m/uL (4.30-5.90); RDW 16.3 % (11.5-15.5); WBC 4.4 k/uL (3.8-10.6); WBC (Perox) 4.56
[2016-12-21 04:58] LABS: Anion Gap 8 mmol/L; Blood Urea Nitrogen 20 mg/dL (9-20); Calcium 8.7 mg/dL (8.4-10.2); Carbon Dioxide 21 mmol/L (22-30); Chloride 108 mmol/L (98-107); Glucose 138 mg/dL (74-99); Magnesium 1.8 mg/dL (1.6-2.3); Non-African American GFR(MDRD) >60 (>60 ml/min/1.73 sqM); Potassium 5.1 mmol/L (3.5-5.1); Sodium 137 mmol/L (137-145)
[2016-12-21] MEDS ORDERED: Magnesium Replacement Protocol 1 EACH MISC MISCELLANE PRN ×2 (05:09→05:31)
[2016-12-21] MEDS: MAGNESIUM SULFATE-D5W PMX 1 GM in DEXTROSE/WATER 1 100ML.BAG IVPB SCH ×2 (06:50→08:49)
[2016-12-21 07:15] LABS: Glucose,Whole Blood 162 mg/dL (75-99)
[2016-12-21] MEDS: METOPROLOL TARTRATE 50 MG TAB PO SCH (08:03)
[2016-12-21] MEDS: ESOMEPRAZOLE 20 MG in SODIUM CHLORIDE 0.9% 50 ML IVPB SCH (08:50)
[2016-12-21] MEDS ORDERED: PRASUGREL 10 MG TAB PO SCH (09:00)
[2016-12-21] MEDS ORDERED: SERTRALINE 100 MG TAB PO SCH (09:00)
--- NOTE | 2016-12-21 11:41 | P.PN ---
Subjective Principal diagnosis: Acute sepsis with septic shock secondary to urinary tract infection This is a very pleasant 40-year-old gentleman who follows with Dr. Junie Clay as his primary care physician. He has a history of coronary artery disease with stent placements most recently in May 2016 [facility] not requiring intervention, severe ischemic cardiomyopathy status post AICD placement echocardiogram in September 2016 revealed ejection fraction 35-40%, diabetes mellitus, diabetic neuropathy, hypertension, hyperlipidemia, CVA/TIA, depression with previous suicide attempts, chronic gastritis, gastroparesis, MRSA infection on the face. He also has a history of obstructive sleep apnea but apparently does not utilize his CPAP machine at home. He had presented to the emergency room last evening with complaints of fatigue and lightheadedness. He had also been having issues with nausea and vomiting along with some diarrhea. He had been treated for urinary tract infection and was placed on Bactrim. His urine culture is pending. He was initially quite hypotensive with a systolic blood pressure in the 60s and 70s and was admitted to the intensive care unit for the same. He had received 2 L of fluid resuscitation He was initiated on norepinephrine which is currently been titrated down to 3 mcg/m. He has a 0.9 normal saline at 75 MLS per hour. His current blood pressure is 119/70. No significant arrhythmias. He has been afebrile. No leukocytosis. Current creatinine 1.70, potassium 5.4 . Troponins 0.032, 0.026 , 0.017. ProBNP 2190. He is maintaining good O2 saturations in the 90s on 2 L/ m per nasal cannula. His x-ray reveals evidence of cardiomegaly without acute congestive heart failure or other acute pulmonary processes. He is currently awake and alert. He denies any chest pain, palpitations, lightheadedness or dizziness. No shortness of breath. He is currently on ceftriaxone. Patient was reevaluated today on 12/21/2016, he is presently off pressors, denies any shortness of breath, no cough, no wheezing, seems to be hemodynamically stable, and no evidence of pulmonary edema at least clinically. Patient is on room air and has good urine output relatively asymptomatic. CBC is relatively normal electrolytes and basic metabolic profile is relatively normal renal profile is almost normal and significantly improved compared to admission renal profile. Blood cultures are negative so far. Final urine culture is pending. Objective - Vital Signs Vital signs: Vital Signs Temp 98.3 F 12/21/16 08:00 Pulse 69 12/21/16 11:00 Resp 12 12/21/16 11:00 BP 134/72 12/21/16 11:00 Pulse Ox 96 12/21/16 11:00 Intake & Output 12/20/16 12/21/16 12/21/16 18:59 06:59 18:59 Intake Total 1400 900 375 Output Total 2185 3450 1800 Balance -785 -6150 -1425 Weight 120.1 kg Intake: IV 900 900 375 0.9 @75 900 900 375 Oral 500 Output: Urine 2185 3450 1800 Other: Voiding Method Urinal Urinal Urinal - Exam GENERAL EXAM: Alert, comfortable in no apparent distress. HEAD: Normocephalic. EYES: Normal reaction of pupils, equal size. NOSE: Clear with pink turbinates. THROAT: There is crowding of the posterior pharynx. No erythema or exudates. NECK: Short. No masses, no JVD. CHEST: No chest wall deformity. LUNGS: Equal air entry with no crackles, wheeze, rhonchi or dullness. CVS: S1 and S2 normal with an audible murmur, regular rhythm with ventricular pacing. ABDOMEN: Obese. No hepatosplenomegaly, normal bowel sounds, no guarding or rigidity. SPINE: No scoliosis or deformity SKIN: No rashes CENTRAL NERVOUS SYSTEM: No focal deficits, tone is normal in all 4 extremities. Extremities: There is trace peripheral edema. No clubbing, no cyanosis. Peripheral pulses are intact. - Labs CBC & Chem 7: 12/21/16 04:14 12/21/16 04:14 Labs: Abnormal Lab Results - Last 24 Hours (Table) 12/20/16 12/20/16 12/20/16 Range/Units 04:29 12:00 16:52 RBC (4.30-5.90) m/uL Hgb (13.0-17.5) gm/dL Hct (39.0-53.0) % RDW (11.5-15.5) % Potassium (3.5-5.1) mmol/L Chloride (98-107) mmol/L Carbon Dioxide (22-30) mmol/L Glucose (74-99) mg/dL POC Glucose (mg/dL) 162 H 274 H (75-99) mg/dL Hemoglobin A1c 10.0 H (4.2-6.1) % 12/20/16 12/20/16 12/21/16 Range/Units 21:03 21:31 04:14 RBC (4.30-5.90) m/uL Hgb (13.0-17.5) gm/dL Hct (39.0-53.0) % RDW (11.5-15.5) % Potassium 5.3 H (3.5-5.1) mmol/L Chloride 108 H (98-107) mmol/L Carbon Dioxide 21 L (22-30) mmol/L Glucose 138 H (74-99) mg/dL POC Glucose (mg/dL) 287 H (75-99) mg/dL Hemoglobin A1c (4.2-6.1) % 12/21/16 12/21/16 Range/Units 04:14 07:12 RBC 4.02 L (4.30-5.90) m/uL Hgb 10.7 L (13.0-17.5) gm/dL Hct 34.4 L (39.0-53.0) % RDW 16.3 H (11.5-15.5) % Potassium (3.5-5.1) mmol/L Chloride (98-107) mmol/L Carbon Dioxide (22-30) mmol/L Glucose (74-99) mg/dL POC Glucose (mg/dL) 162 H (75-99) mg/dL Hemoglobin A1c (4.2-6.1) % Microbiology - Last 24 Hours (Table) 12/19/16 20:05 Urine Culture - Final Urine,Clean Catch 12/19/16 18:34 Blood Culture - Preliminary Blood No Growth after 24 hours Assessment and Plan Plan: #1 Sepsis with septic shock requiring fluid resuscitation and norepinephrine secondary to urinary tract infection, I believe hypovolemia and hypovolemic shock is also on the differential considering the significant improvement within a short time, and so far the cultures remain negative. #2 Acute kidney injury secondary to dehydration, resolved #3 Coronary artery disease with history of multiple stent placements. Followed by Dr. Peres at [facility], most recent cardiac cath in May 2016 did not reveal significant stenosis. #4 Ischemic cardiomyopathy status post AICD placement, post recent echocardiogram in September 2016 revealed ejection fraction 35-40%. #5 History of systolic congestive heart failure. #6 History of hypertension. #7 Hyperlipidemia. #8 Diabetes mellitus. #9 Diabetic neuropathy. #10 Diabetic gastroparesis. #11 History of CVA/TIA. #12 History of depression with multiple suicide attempts with insulin in the past. #13 History of obstructive sleep apnea, noncompliant with CPAP. Recommendation: Continue present supportive care measures, consider transferring the patient to a monitored bed on selective, and we'll continue to follow. Time with Patient: Less than 30
[2016-12-21 12:06] LABS: Glucose,Whole Blood 364 mg/dL (75-99)
[2016-12-21 13:49] VITALS: BP 137/86; PULSE 65; RESP 16; TEMP 97.8
--- NOTE | 2016-12-21 17:14 | P.DS ---
Providers Date of admission: 12/19/16 21:52 Attending physician: Jose M Gallagher Consults: 12/19/16 21:51 Consult Physician Stat Consulting Provider: Xavier Valerio Consult Reason/Comments: Hypovolemia, hypotension, acute kidney injury Do you want consulting provider notified?: Already Contacted Consult Physician Stat Consulting Provider: Neri Barney Consult Reason/Comments: Ischemic cardiomyopathy, hypotension, hypovolemia, kidney injury Do you want consulting provider notified?: Already Contacted [facility]: This is a very pleasant 40-year-old gentleman who follows with Dr. Junie Clay as his primary care physician. He has a history of coronary artery disease with stent placements most recently in May 2016 Fabio Aguilar not requiring intervention, severe ischemic cardiomyopathy status post AICD placement echocardiogram in September 2016 revealed ejection fraction 35-40%, diabetes mellitus, diabetic neuropathy, hypertension, hyperlipidemia, CVA/TIA, depression with previous suicide attempts, chronic gastritis, gastroparesis, MRSA infection on the face. He also has a history of obstructive sleep apnea but apparently does not utilize his CPAP machine at home. He had presented to the emergency room last evening with complaints of fatigue and lightheadedness. He had also been having issues with nausea and vomiting along with some diarrhea. He had been treated for urinary tract infection and was placed on Bactrim. His urine culture is pending. He was initially quite hypotensive with a systolic blood pressure in the 60s and 70s and was admitted to the intensive care unit for the same. He had received 2 L of fluid resuscitation He was initiated on norepinephrine which was tapered off Pt was doing well till yesterday evening, apparently took all his medications, however only consumed one mountain dew NO fevers, chills, nausea, vomiting, abdominal pain, diarrhea, recent change in medications are reported doing well improved was able to ambulate no fevers, chills, nausea, vomiting - Constitutional General appearance: no acute distress - EENT Eyes: PERRLA - Respiratory Respiratory: bilateral: CTA, negative: dullness, rales, rhonchi - Cardiovascular Rhythm: regular Heart sounds: normal: S1, S2 Abnormal Heart Sounds: no systolic murmur - Gastrointestinal General gastrointestinal: normal bowel sounds, no organomegaly, soft - Genitourinary oconnell in place - Neurologic Neurologic: CNII-XII intact - Psychiatric Psychiatric: A&O x's 3 Assessment and Plan Plan: 1. Hypovolemic shock CHF with systolic dysfuntion, not acute DM2 BARTOLO, prerenal with ATN hyaline casts Chronic pain Peripheral neuropathy Obesity Ischemic cardiomyopathy Previous UTI Likely multifactorial with eval of labs hyaline casts, pt is on diuretics and mild NAGMA, with BARTOLO., improved dehydration and use of diuretics , acarbose dc acorbose increase fluid intake dc home to follow up with PCP for change in diabetes meds ceftin to continue for cystitis urine cultures negative, however was on abx during the collection of urine sample Patient Condition at Discharge: Serious Plan - Discharge Summary New Discharge Prescriptions: New Cefuroxime [Ceftin] 250 mg PO BID #10 tablet Continue Sertraline HCl [Zoloft] 200 mg PO DAILY Nitroglycerin Sl Tabs [Nitrostat] 0.4 mg SUBLINGUAL Q5M PRN PRN Reason: Angina Furosemide [Lasix] 40 mg PO DAILY metFORMIN HCL 1,000 mg PO BID Omeprazole [PriLOSEC] 40 mg PO HS Baclofen [Lioresal] 10 mg PO AC-TID PRN PRN Reason: Pain Glimepiride 4 mg PO BID Dulaglutide [Trulicity] 1.5 mg SQ OROZCO Rosuvastatin Calcium 40 mg PO HS Lisinopril [Zestril] 2.5 mg PO DAILY Ranolazine [Ranexa] 1,000 mg PO BID Gabapentin [Neurontin] 300 mg PO BID Primidone [Mysoline] 100 mg PO HS Prasugrel [Effient] 10 mg PO DAILY tab Metoprolol Tartrate 50 mg PO BID Loperamide [Imodium] 2 mg PO TID PRN PRN Reason: Diarrhea Aspirin EC [Ecotrin Low Dose] 81 mg PO DAILY Cholecalciferol (Vitamin D3) [Vitamin D3] 2,000 unit PO DAILY Ranitidine HCl 150 mg PO DAILY Linagliptin [Tradjenta] 5 mg PO HS Abilify Odt 15 mg PO HS Discontinued Acarbose [Precose] 25 mg PO BID Sulfamethox-Tmp 800-160Mg [Bactrim DS 800-160 mg] 1 tab PO BID Discharge Medication List Nitroglycerin Sl Tabs [Nitrostat] 0.4 mg SUBLINGUAL Q5M PRN 10/13/13 [History] Sertraline HCl [Zoloft] 200 mg PO DAILY 10/13/13 [History] Furosemide [Lasix] 40 mg PO DAILY 05/21/15 [History] metFORMIN HCL 1,000 mg PO BID 07/03/15 [History] Omeprazole [PriLOSEC] 40 mg PO HS 08/13/15 [History] Baclofen [Lioresal] 10 mg PO AC-TID PRN 01/13/16 [History] Dulaglutide [Trulicity] 1.5 mg SQ OROZCO 03/10/16 [History] Glimepiride 4 mg PO BID 03/10/16 [History] Rosuvastatin Calcium 40 mg PO HS 05/05/16 [History] Lisinopril [Zestril] 2.5 mg PO DAILY 06/01/16 [History] Gabapentin [Neurontin] 300 mg PO BID 06/09/16 [History] Ranolazine [Ranexa] 1,000 mg PO BID 06/09/16 [History] Primidone [Mysoline] 100 mg PO HS 06/30/16 [History] Prasugrel [Effient] 10 mg PO DAILY tab 07/01/16 [Rx] Loperamide [Imodium] 2 mg PO TID PRN 10/20/16 [History] Metoprolol Tartrate 50 mg PO BID 10/20/16 [History] Aspirin EC [Ecotrin Low Dose] 81 mg PO DAILY 11/07/16 [History] Cholecalciferol (Vitamin D3) [Vitamin D3] 2,000 unit PO DAILY 11/07/16 [History] Abilify Odt 15 mg PO HS 12/19/16 [History] Linagliptin [Tradjenta] 5 mg PO HS 12/19/16 [History] Ranitidine HCl 150 mg PO DAILY 12/19/16 [History] Cefuroxime [Ceftin] 250 mg PO BID #10 tablet 12/21/16 [Rx] Follow up Appointment(s)/Referral(s): Junie New MD [Primary Care Provider] - 1-2 days Patient Instructions/Handouts: Urinary Tract Infection in Men (DC), Hypotension (DC) Activity/Diet/Wound Care/Special Instructions: hold lasix till thursday Discharge Disposition: HOME SELF-CARE
== END 2016-12-21 15:12 | disposition home or self-care (01) | DRG 871 ==
LOC: EC 17:54 → 6ICU 21:52
PROVIDERS: ADMIT Internal Medicine; ATTEND Internal Medicine
DX: R57.1 Hypovolemic shock (principal); N17.0 Acute kidney failure with tubular necrosis; I50.22 Chronic systolic (congestive) heart failure; K31.84 Gastroparesis; N30.90 Cystitis, unspecified without hematuria; E11.40 Type 2 diabetes mellitus with diabetic neuropathy, unspecified; I11.0 Hypertensive heart disease with heart failure; E11.43 Type 2 diabetes mellitus with diabetic autonomic (poly)neuropathy; I25.2 Old myocardial infarction; I25.5 Ischemic cardiomyopathy; I25.10 Atherosclerotic heart disease of native coronary artery without angina pectoris; G89.29 Other chronic pain; E66.9 Obesity, unspecified; E78.5 Hyperlipidemia, unspecified; M54.9 Dorsalgia, unspecified; F32.9 Major depressive disorder, single episode, unspecified; M19.91 Primary osteoarthritis, unspecified site; K21.9 Gastro-esophageal reflux disease without esophagitis; G47.33 Obstructive sleep apnea (adult) (pediatric); Z79.84 Long term (current) use of oral hypoglycemic drugs; Z79.02 Long term (current) use of antithrombotics/antiplatelets; Z79.82 Long term (current) use of aspirin; Z79.899 Other long term (current) drug therapy; Z87.440 Personal history of urinary (tract) infections; Z91.5 Personal history of self-harm; Z95.5 Presence of coronary angioplasty implant and graft; Z91.19 Patient's noncompliance with other medical treatment and regimen; Z95.810 Presence of automatic (implantable) cardiac defibrillator; Z86.14 Personal history of Methicillin resistant Staphylococcus aureus infection; Z86.73 Personal history of transient ischemic attack (TIA), and cerebral infarction without residual deficits; Z90.49 Acquired absence of other specified parts of digestive tract; Z88.8 Allergy status to other drugs, medicaments and biological substances; Z88.1 Allergy status to other antibiotic agents; Z91.041 Radiographic dye allergy status; Z88.5 Allergy status to narcotic agent; Z88.0 Allergy status to penicillin; Z91.013 Allergy to seafood
CPT/HCPCS: 36415; 71010; 80048; 80053; 81001; 82550; 82553; 83036; 83605; 83735; 83880; 84100; 84132; 84484; 85025; 85610; 85730; 87040; 87086; 93005; 96361; 96365; 96366; 96368; 96375; 99291; 99292

== ENCOUNTER 2016-12-29 22:29 | Inpatient (IN) | payer MEDICARE, OTHER ==
--- NOTE | 2016-12-29 23:38 | ED ---
Chest Pain HPI - General Chief Complaint: Chest Pain Stated Complaint: chest heaviness/left arm pain Time Seen by Provider: 12/29/16 23:09 Source: patient Mode of arrival: ambulatory Limitations: no limitations - History of Present Illness Initial Comments: This is a 41-year-old male with a history of CHF and CAD who presents emergency department for chest pain and shortness of breath. He states it's been going on for the last 3 or 4 days. He states that the chest pain seems to be located over where his pacemaker was placed. The shortness of breath is worse with exertion and also with laying flat. He states that he has to sit up to catch his breath. He denies any lower [place] swelling. No history of DVT or PE. He states that he's also been very nauseated and vomiting. No cough or fever. No abdominal pain. No other complaints. - Related Data Home Medications Medication Instructions Recorded Confirmed Nitroglycerin Sl Tabs [Nitrostat] 0.4 mg SUBLINGUAL Q5M PRN 10/13/13 12/29/16 Sertraline HCl [Zoloft] 200 mg PO DAILY 10/13/13 12/29/16 Furosemide [Lasix] 40 mg PO DAILY 05/21/15 12/29/16 metFORMIN HCL 1,000 mg PO BID 07/03/15 12/29/16 Omeprazole [PriLOSEC] 40 mg PO HS 08/13/15 12/29/16 Baclofen [Lioresal] 10 mg PO AC-TID PRN 01/13/16 12/29/16 Dulaglutide [Trulicity] 1.5 mg SQ OROCZO 03/10/16 12/29/16 Glimepiride 4 mg PO BID 03/10/16 12/29/16 Rosuvastatin Calcium 40 mg PO HS 05/05/16 12/29/16 Lisinopril [Zestril] 2.5 mg PO DAILY 06/01/16 12/29/16 Gabapentin [Neurontin] 300 mg PO BID 06/09/16 12/29/16 Ranolazine [Ranexa] 1,000 mg PO BID 06/09/16 12/29/16 Primidone [Mysoline] 100 mg PO HS 06/30/16 12/29/16 Loperamide [Imodium] 2 mg PO TID 10/20/16 12/29/16 Metoprolol Tartrate 50 mg PO BID 10/20/16 12/29/16 Aspirin EC [Ecotrin Low Dose] 81 mg PO DAILY 11/07/16 12/29/16 Cholecalciferol (Vitamin D3) 2,000 unit PO DAILY 11/07/16 12/29/16 [Vitamin D3] Abilify Odt 15 mg PO HS 12/19/16 12/29/16 Linagliptin [Tradjenta] 5 mg PO HS 12/19/16 12/29/16 Ranitidine HCl 150 mg PO DAILY 12/19/16 12/29/16 Previous Rx's Medication Instructions Recorded Prasugrel [Effient] 10 mg PO DAILY tab 07/01/16 Allergies Allergy/AdvReac Type Severity Reaction Status Date / Time erythromycin base Allergy Severe Swelling Verified 12/29/16 23:06 [Erythromycin Base] codeine Allergy Unknown Swelling Verified 12/29/16 23:06 meclizine Allergy Unknown Unknown Verified 11/07/16 20:45 Penicillins Allergy Unknown Rash/Hives Verified 12/29/16 23:06 shellfish derived Allergy Unknown Anaphylaxis Verified 12/29/16 23:06 Fish Containing Products Allergy Anaphylaxis Verified 12/29/16 23:06 [Fish] Iodinated Contrast- Oral and Allergy Anaphylaxis Verified 12/29/16 23:06 IV Dye cephalexin monohydrate AdvReac Unknown Nausea & Verified 12/29/16 23:06 [From Keflex] Vomiting naproxen AdvReac Unknown Compromises Verified 12/29/16 23:06 Kidney Function atorvastatin calcium AdvReac Myalgia Verified 12/29/16 23:06 [From Lipitor] hydrocodone [From [place]] AdvReac Rapid Verified 12/29/16 23:06 Heart Rate Review of Systems ROS Statement: Those systems with pertinent positive or pertinent negative responses have been documented in the HPI. ROS Other: All systems not noted in ROS Statement are negative. EKG Findings - EKG Comments: EKG Findings:: EKG showing paced rhythm with a rate of 89. No abnormal ST segment changes or T-wave inversions. QTC is 459. Other intervals normal. No ectopy. Past Medical History Past Medical History: Coronary Artery Disease (CAD), Chest Pain / Angina, Heart Failure, CVA/TIA, Diabetes Mellitus, GERD/Reflux, Hyperlipidemia, Hypertension, Myocardial Infarction ([place]), Osteoarthritis (OA), Pneumonia, Skin Disorder, Sleep Apnea/CPAP/BIPAP Additional Past Medical History / Comment(s): HX: Coronary artery disease with multiple vessel disease, ischemic cardiomyopathy, diabetic neuropathy bilateral hands and feet, hypertension hypertensive cardiovascular disease, chronic gastritis, chronic back pain, depression with hx of suicide attempts, GASTROPARESIS, PSORIASES,NIDDM type II. Last Myocardial Infarction Date:: 06/03/16 per pt. 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 Past Anesthesia/Blood Transfusion Reactions: No Reported Reaction Additional Past Anesthesia/Blood Transfusion Reaction / Comment(s): . Date of Last Stent Placement:: 06/03/16 Type of Cardiac Device: Biventricular Pacemaker, AICD Device Placement Date:: 09/19/15 Past Psychological History: Anxiety, Depression, PTSD Smoking Status: Never smoker - Past Family History Mother Family Medical History: Coronary Artery Disease (CAD), Myocardial Infarction ([place] ) Additional Family Medical History / Comment(s): 7 [place] and faulty heart valve. Pt does not know the age when mother had her MIs. Father History Unknown: Yes Additional Family Medical History / Comment(s): Does not know who father is Brother(s) Family Medical History: Congestive Heart Failure (CHF), Myocardial Infarction ( [place]) Additional Family Medical History / Comment(s): Parkinsons. Pt does not know at what age his brother had a [place] Patient has Family Medical History: No Reported History Additional Family Medical History / Comment(s): There is a strong family history for heart disease, hypertension, and diabetes. General Exam - General Exam Comments Initial Comments: Constitutional: Awake alert Appears comfortable Head: Normocephalic atraumatic Eyes: no conjunctival injection No scleral icterus EOMI Neck: No JVD Supple Heart: Regular rate rhythm normal S1-S2 no murmurs Lungs: Clear to auscultation bilaterally No wheezing No rales Abdomen: Soft nondistended nontender Extremities: Non edematous DP pulses intact Radial pulses intact Neuro: A&Ox3 No focal neurologic deficits Psych: Appropriate mood and affect Limitations: no limitations Course Vital Signs 12/29/16 12/30/16 22:37 00:42 Temperature 97.2 F L 98.6 F Pulse Rate 94 88 Respiratory 20 18 Rate Blood Pressure 182/98 158/81 O2 Sat by Pulse 96 99 Oximetry Chest Pain MDM - MDM Is a 41-year-old male with a history of CAD and CHF who came to the emergency department for shortness of breath and chest pain. X-ray did not show any pulmonary edema however this is a his troponin was elevated at 0.087. Due to the patient's history she is in the hospital for cardiac evaluation. He was started on heparin. Patient was improved after nitroglycerin ointment. We'll admit for further evaluation. Dr. Chiu accepts the admission. All questions were answered. Disposition Clinical Impression: Elevated troponin, Unstable angina Disposition: ADMITTED IP TO THIS HOSP Condition: Stable
[2016-12-30 00:33] LABS: Anisocytosis Slight; Basophils % (A) 1 %; CH 27.4; CHCM 33.1; Eosinophils # (A) 0.2 k/uL (0-0.7); Eosinophils % (A) 5 %; HCT 35.7 % (39.0-53.0); HDW 2.98; HGB 11.6 gm/dL (13.0-17.5); Luc # (Auto) 0.12; Luc % (Auto) 3; Lymphocytes # (A) 1.5 k/uL (1.0-4.8); Lymphocytes % (A) 33 %; MCH 26.9 pg (25.0-35.0); MCHC 32.4 g/dL (31.0-37.0); MCV 82.9 fL (80.0-100.0); Mean Platelet Volume 7.9; Monocytes # (A) 0.3 k/uL (0-1.0); Monocytes % (A) 6 %; Neutrophils # (A) 2.5 k/uL (1.3-7.7); Neutrophils % (A) 53 %; RBC 4.31 m/uL (4.30-5.90); RDW 16.3 % (11.5-15.5); WBC 4.7 k/uL (3.8-10.6); WBC (Perox) 4.63
[2016-12-30 00:36] LABS: ALT 40 U/L (21-72); AST 27 U/L (17-59); Alkaline Phosphatase 97 U/L (38-126); Anion Gap 8 mmol/L; Blood Urea Nitrogen 19 mg/dL (9-20); Calcium 9.4 mg/dL (8.4-10.2); Carbon Dioxide 23 mmol/L (22-30); Chloride 100 mmol/L (98-107); Glucose 349 mg/dL (74-99); Magnesium 1.6 mg/dL (1.6-2.3); Non-African American GFR(MDRD) >60 (>60 ml/min/1.73 sqM); Potassium 5.2 mmol/L (3.5-5.1); Sodium 131 mmol/L (137-145); Total Bilirubin 0.4 mg/dL (0.2-1.3); Total Protein 5.9 g/dL (6.3-8.2)
[2016-12-30 00:50] LABS: Partial Thromboplastin Time 20.3 sec (22.0-30.0)
[2016-12-30] MEDS ORDERED: NITROGLYCERIN OINT 1 INCH/GM PACKET TOPICAL STA (00:59)
[2016-12-30] MEDS: ONDANSETRON 4 MG/2 ML VIAL IVP STA ×2 (01:00→01:10)
[2016-12-30 01:01] LABS: Appearance,Urine Clear (Clear); Bilirubin,Urine Negative (Negative); Glucose,Urine (UA) 4+ (Negative); Ketones,Urine Negative (Negative); Leukocyte Esterase,Urine Negative (Negative); Mucus,Urine Rare /hpf; Nitrite,Urine Negative (Negative); PH, Urine 5.5 (5.0-8.0); Particle Count 329; Protein,Urine 1+ (Negative); RBC,Urine 4 /hpf (0-5); Specific Gravity,Urine 1.015 (1.001-1.035); UA Billing (MACRO vs. MICRO) MICRO; Urobilinogen,Urine <2.0 mg/dL (<2.0); WBC,Urine <1 /hpf (0-5)
[2016-12-30 01:01] LABS: Creatine Kinase MB 2.4 ng/mL (0.0-2.4)
[2016-12-30] MEDS ORDERED: NITROGLYCERIN SL TABS 0.4 MG TAB SUBLINGUAL PRN (01:08)
[2016-12-30] MEDS ORDERED: HEPARIN SODIUM,PORCINE 5,000 UNIT/ML 1 ML VIAL IV ONE (01:08)
[2016-12-30] MEDS ORDERED: ASPIRIN 81 MG CHEW PO STA (01:08)
[2016-12-30] MEDS ORDERED: ONDANSETRON 4 MG/2 ML VIAL IM STA (01:09)
[2016-12-30 01:10] LABS: Troponin I 0.087 ng/mL (0.000-0.034)
[2016-12-30] MEDS ORDERED: BACLOFEN 10 MG TAB PO PRN (01:12)
--- NOTE | 2016-12-30 01:19 | XR ---
EXAM: XR Chest, 2 Views CLINICAL HISTORY: Reason: SOB TECHNIQUE: Frontal and lateral views of the chest. COMPARISON: 10/05/16 FINDINGS: Lungs: Unremarkable. No consolidation. Pleural space: Unremarkable. No pneumothorax. Heart: coronary calcifications. Mediastinum: Unremarkable. Bones/joints: Unremarkable. Other findings: Left pacer is again noted. IMPRESSION: No acute findings or substantial change.
[2016-12-30] MEDS: HEPARIN SODIUM,PORCINE/D5W PMX 25,000 UNIT in DEXTROSE/WATER 1 500ML.BAG IV SCH ×2 (02:03→22:01)
[2016-12-30] MEDS ORDERED: HYDROmorphone 1 MG/ML 1 ML SYRINGE IVP STA (03:02)
[2016-12-30 07:04] LABS: Creatine Kinase MB 2.3 ng/mL (0.0-2.4)
[2016-12-30 07:09] LABS: Troponin I 0.062 ng/mL (0.000-0.034)
[2016-12-30 08:40] LABS: Glucose,Whole Blood 318 mg/dL (75-99)
[2016-12-30] MEDS: RANOLAZINE 500 MG TAB.ER.12H PO SCH ×2 (09:20→19:54)
[2016-12-30] MEDS: FAMOTIDINE 20 MG TAB PO SCH (09:20)
[2016-12-30] MEDS: metFORMIN 500 MG TAB PO SCH ×2 (09:20→17:05)
[2016-12-30] MEDS: FUROSEMIDE 40 MG TAB PO SCH (09:20)
[2016-12-30] MEDS: GABAPENTIN 300 MG CAP PO SCH ×2 (09:20→19:54)
[2016-12-30] MEDS: SERTRALINE 100 MG TAB PO SCH (09:20)
[2016-12-30] MEDS: LISINOPRIL 2.5 MG TAB PO SCH (09:21)
[2016-12-30] MEDS: PRASUGREL 10 MG TAB PO SCH (09:21)
--- NOTE | 2016-12-30 09:30 | P.CRDCN ---
History of Present Illness Consult date: 12/30/16 Requesting physician: Elvin hCiu Consult reason: chest pain Chief complaint: Chest pain History of present illness: This is a 41-year-old gentleman with known history of coronary artery disease and multiple stent placements, severe ischemic cardiomyopathy with prior AICD, hypertension, diabetes, hyperlipidemia, sleep apnea, prior TIA, GERD , he follows regularly now with a heel cementer in the [place] area. Patient presents to the hospital on this occasion with symptoms of chest discomfort. He states that the symptoms started a couple of days ago, he describes as a pressure sensation in his chest, he has been using nitroglycerin at home with relief of symptoms. According to the patient, he states that he did have a heart catheterization performed a couple of months ago and was told to have no significant blockages requiring intervention. EKG on arrival here shows a V paced rhythm with underlying normal sinus rhythm. Chest x-ray does not reveal any acute findings. Blood pressure 138/90 with a heart rate in the 90s, 94% on room air. Hemoglobin 11.6, platelet count 203, potassium 5.2, BUN 19, creatinine 1.0. Troponins ointment 087, 0.062. BNP 757. At the time of my examination this morning, patient states he has mild burning in the center of his chest. He was pain-free through the night. Past Medical History Past Medical History: Coronary Artery Disease (CAD), Chest Pain / Angina, Heart Failure, CVA/TIA, Diabetes Mellitus, GERD/Reflux, Hyperlipidemia, Hypertension, Myocardial Infarction ([place]), Osteoarthritis (OA), Pneumonia, Skin Disorder, Sleep Apnea/CPAP/BIPAP Additional Past Medical History / Comment(s): HX: Coronary artery disease with multiple vessel disease, ischemic cardiomyopathy, diabetic neuropathy bilateral hands and feet, hypertension hypertensive cardiovascular disease, chronic gastritis, chronic back pain, depression with hx of suicide attempts, GASTROPARESIS, PSORIASES,NIDDM type II. Last Myocardial Infarction Date:: 06/03/16 per pt. 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 Past Anesthesia/Blood Transfusion Reactions: No Reported Reaction Additional Past Anesthesia/Blood Transfusion Reaction / Comment(s): . Date of Last Stent Placement:: 06/03/16 Type of Cardiac Device: Biventricular Pacemaker, AICD Device Placement Date:: 09/19/15 Past Psychological History: Anxiety, Depression, PTSD Additional Psychological History / Comment(s): Several suicide attempts with use of insulin. PTSD- IN 2000- HIS 3 MONTH OLD SON IN HIS ARMS(CHILD WAS BORN 2 MONTHS PREMATURE). Pt states his depression is stable at this time and does not have any suicidal thoughts or plans. He is independent. PT ON DISABILTY MULTIFACTORIAL PER PT. Smoking Status: Never smoker Past Alcohol Use History: Occasional Additional Past Alcohol Use History / Comment(s): pt states he drinks occassionally. Past Drug Use History: Marijuana Additional Drug Use History / Comment(s): NONE IN 15 YEARS (past alcoholic, but drinks occassionally per pt), has smoked marijuana - Past Family History Mother Family Medical History: Coronary Artery Disease (CAD), Myocardial Infarction ([place] ) Additional Family Medical History / Comment(s): 7 [place] and faulty heart valve. Pt does not know the age when mother had her MIs. Father History Unknown: Yes Additional Family Medical History / Comment(s): Does not know who father is Brother(s) Family Medical History: Congestive Heart Failure (CHF), Myocardial Infarction ( [place]) Additional Family Medical History / Comment(s): Parkinsons. Pt does not know at what age his brother had a [place] Patient has Family Medical History: No Reported History Additional Family Medical History / Comment(s): There is a strong family history for heart disease, hypertension, and diabetes. Medications and Allergies Home Medications Medication Instructions Recorded Confirmed Type Nitroglycerin Sl Tabs [Nitrostat] 0.4 mg SUBLINGUAL Q5M PRN 10/13/13 12/29/16 History Sertraline HCl [Zoloft] 200 mg PO DAILY 10/13/13 12/29/16 History Furosemide [Lasix] 40 mg PO DAILY 05/21/15 12/29/16 History metFORMIN HCL 1,000 mg PO BID 07/03/15 12/29/16 History Omeprazole [PriLOSEC] 40 mg PO HS 08/13/15 12/29/16 History Baclofen [Lioresal] 10 mg PO AC-TID PRN 01/13/16 12/29/16 History Dulaglutide [Trulicity] 1.5 mg SQ OROZCO 03/10/16 12/29/16 History Glimepiride 4 mg PO BID 03/10/16 12/29/16 History Rosuvastatin Calcium 40 mg PO HS 05/05/16 12/29/16 History Lisinopril [Zestril] 2.5 mg PO DAILY 06/01/16 12/29/16 History Gabapentin [Neurontin] 300 mg PO BID 06/09/16 12/29/16 History Ranolazine [Ranexa] 1,000 mg PO BID 06/09/16 12/29/16 History Primidone [Mysoline] 100 mg PO HS 06/30/16 12/29/16 History Loperamide [Imodium] 2 mg PO TID 10/20/16 12/29/16 History Metoprolol Tartrate 50 mg PO BID 10/20/16 12/29/16 History Aspirin EC [Ecotrin Low Dose] 81 mg PO DAILY 11/07/16 12/29/16 History Cholecalciferol (Vitamin D3) 2,000 unit PO DAILY 11/07/16 12/29/16 History [Vitamin D3] Abilify Odt 15 mg PO HS 12/19/16 12/29/16 History Linagliptin [Tradjenta] 5 mg PO HS 12/19/16 12/29/16 History Ranitidine HCl 150 mg PO DAILY 12/19/16 12/29/16 History Allergies Allergy/AdvReac Type Severity Reaction Status Date / Time erythromycin base Allergy Severe Swelling Verified 12/29/16 23:06 [Erythromycin Base] codeine Allergy Unknown Swelling Verified 12/29/16 23:06 meclizine Allergy Unknown Unknown Verified 11/07/16 20:45 Penicillins Allergy Unknown Rash/Hives Verified 12/29/16 23:06 shellfish derived Allergy Unknown Anaphylaxis Verified 12/29/16 23:06 Fish Containing Products Allergy Anaphylaxis Verified 12/29/16 23:06 [Fish] Iodinated Contrast- Oral and Allergy Anaphylaxis Verified 12/29/16 23:06 IV Dye cephalexin monohydrate AdvReac Unknown Nausea & Verified 12/29/16 23:06 [From Keflex] Vomiting naproxen AdvReac Unknown Compromises Verified 12/29/16 23:06 Kidney Function atorvastatin calcium AdvReac Myalgia Verified 12/29/16 23:06 [From Lipitor] hydrocodone [From [place]] AdvReac Rapid Verified 12/29/16 23:06 Heart Rate Physical Exam Vitals: Vital Signs Temp Pulse Pulse Resp BP BP BP 12/30/16 09:13 96.9 F L 97 20 138/91 12/30/16 03:54 97.2 F L 95 18 140/80 12/30/16 01:54 98.1 F 94 18 126/51 12/30/16 01:08 12/30/16 00:42 98.6 F 88 18 158/81 12/29/16 22:37 97.2 F L 94 20 182/98 Pulse Ox 12/30/16 09:13 94 L 12/30/16 03:54 96 12/30/16 01:54 96 12/30/16 01:08 96 12/30/16 00:42 99 12/29/16 22:37 96 Intake and Output 12/29/16 12/30/16 12/30/16 22:59 06:59 14:59 Intake Total 120 Balance 120 Intake: IV 120 0.9 60 Heparin Sodium,Porcine/ 60 D5w Pmx 25,000 unit In Dextrose/Water 1 500ml. bag @ 8.6 UNITS/KG/HR 20. 12 mls/hr IV .Q24H [facility] Rx #:[id number] Other: # Voids 0 Weight 117.027 kg 116.8 kg PHYSICAL EXAMINATION: HEENT: Head is atraumatic, normocephalic. Pupils equal, round. Neck is supple. There is no elevated jugular venous pressure. HEART EXAMINATION: Heart S1, S2 normal. No murmur or gallop heard. CHEST EXAMINATION: Lungs are clear to auscultation and precussion. No chest wall tenderness is noted on palpation or with deep breathing. ABDOMEN: Soft, nontender. Bowel sounds are heard. No organomegaly noted. EXTREMITIES: 2+ peripheral pulses with no evidence of peripheral edema and no calf tenderness noted. NEUROLOGIC patient is awake, alert and oriented -3. . Results 12/29/16 23:45 12/29/16 23:45 Cardiac Enzymes 12/29/16 12/29/16 12/30/16 Range/Units 23:45 23:45 05:47 AST 27 (17-59) U/L CK-MB (CK-2) 2.4 2.3 (0.0-2.4) ng/mL Troponin I 0.087 H* 0.062 H* (0.000-0.034) ng/mL Coagulation 12/29/16 12/30/16 Range/Units 23:45 08:40 PT 10.0 (9.0-12.0) sec APTT 20.3 L 23.0 (22.0-30.0) sec CBC 12/29/16 Range/Units 23:45 WBC 4.7 (3.8-10.6) k/uL RBC 4.31 (4.30-5.90) m/uL Hgb 11.6 L (13.0-17.5) gm/dL Hct 35.7 L (39.0-53.0) % Plt Count 203 (150-450) k/uL Comprehensive Metabolic Panel 12/29/16 Range/Units 23:45 Sodium 131 L (137-145) mmol/L Potassium 5.2 H (3.5-5.1) mmol/L Chloride 100 (98-107) mmol/L Carbon Dioxide 23 (22-30) mmol/L BUN 19 (9-20) mg/dL Creatinine 1.07 (0.66-1.25) mg/dL Glucose 349 H (74-99) mg/dL Calcium 9.4 (8.4-10.2) mg/dL AST 27 (17-59) U/L ALT 40 (21-72) U/L Alkaline Phosphatase 97 (38-126) U/L Total Protein 5.9 L (6.3-8.2) g/dL Albumin 3.6 (3.5-5.0) g/dL Current Medications Generic Name Dose Route Start Last Admin Trade Name Freq PRN Reason Stop Dose Admin Aripiprazole 15 mg 12/30/16 21:00 Abilify PO HS JAKE Aspirin 325 mg 12/31/16 09:00 Aspirin PO DAILY JA[facility] Baclofen 10 mg 12/30/16 01:12 Lioresal PO AC-TID PRN Pain Famotidine 20 mg 12/30/16 09:00 Pepcid PO DAILY [facility] Furosemide 40 mg 12/30/16 09:00 Lasix PO DAILY [facility] Gabapentin 300 mg 12/30/16 09:00 Neurontin PO BID [facility] Glimepiride 4 mg 12/30/16 09:00 Amaryl PO BID [facility] Heparin Sodium/Dextrose 25,000 500 mls @ 20.12 mls/hr 12/30/16 01:15 02:03 unit/ IV Solution IV 8.54 units/kg/hr .Q24H [facility]KE 20 mls/hr Protocol Administration 8.6 UNITS/KG/HR Linagliptin 5 mg 12/30/16 21:00 Tradjenta PO HS [facility] Lisinopril 2.5 mg 12/30/16 09:00 Zestril PO DAILY [facility] Metformin HCl 1,000 mg 12/30/16 07:30 Glucophage PO AC-BID [facility] Nitroglycerin 0.4 mg 12/30/16 01:08 Nitrostat SUBLINGUAL Q5M PRN Chest Pain Pantoprazole Sodium 40 mg 12/30/16 21:00 Protonix PO HS [facility] Prasugrel 10 mg 12/30/16 09:00 Effient PO DAILY [facility] Primidone 100 mg 12/30/16 21:00 Mysoline PO HS [facility] Ranolazine 1,000 mg 12/30/16 09:00 Ranexa PO BID [facility] Sertraline HCl 200 mg 12/30/16 09:00 Zoloft PO DAILY [facility] Intake and Output 12/29/16 12/30/16 12/30/16 22:59 06:59 14:59 Intake Total 120 Balance 120 Intake: IV 120 0.9 60 Heparin Sodium,Porcine/ 60 D5w Pmx 25,000 unit In Dextrose/Water 1 500ml. bag @ 8.6 UNITS/KG/HR 20. 12 mls/hr IV .Q24H [facility] Rx #:[id number] Other: # Voids 0 Weight 117.027 kg 116.8 kg 12/29/16 23:45 12/29/16 23:45 EKG Interpretations (text) EKG shows a ventricular paced rhythm with underlying normal sinus rhythm Assessment and Plan Plan: Assessment and plan #1 Chest pain in a patient with known history of coronary artery disease. Troponins 0.087, 0.062. Upon review of prior records, patient has had abnormal troponins in the past with normal heart cath. EKG shows ventricular paced rhythm with underlying normal sinus rhythm. No acute changes noted. #2 ischemic cardiomyopathy with prior AICD #3 hypertension #4 hyperlipidemia #5 coronary artery disease with multiple stent placements, patient states he recently had a heart catheterization performed in the past couple of months at [place] and was told not to have any significant obstructive coronary artery disease. #6 diabetes #7 sleep apnea #8 prior TIA Plan We will obtain an echocardiogram with Doppler study as well as a third troponin value. Continue IV heparin at this time. We will also obtain copy of most recent heart catheterization performed at [place]. Further recommendations to follow. DNP note has been reviewed, I agree with a documented findings and plan of care. Patient was seen and examined.
[2016-12-30] MEDS: INSULIN LISPRO (humaLOG) 300 UNIT/3 ML VIAL SQ SCH ×4 (09:59→21:09)
[2016-12-30 10:02] LABS: Hemoglobin A1C 10.2 % (4.2-6.1)
[2016-12-30] MEDS: HEPARIN SODIUM,PORCINE 5,000 UNIT/ML 1 ML VIAL IV PRN ×3 (10:03→23:10)
--- NOTE | 2016-12-30 10:55 | ECHOF ---
Referral Reason:chest pain MEASUREMENTS -------- HEIGHT: 167.6 cm WEIGHT: 116.6 kg BP: 138/91 IVSd: 1.3 cm (0.6 - 1.1) LVIDd: 4.7 cm (3.9 - 5.3) LVPWd: 1.3 cm (0.6 - 1.1) IVSs: 1.6 cm LVIDs: 3.9 cm LVPWs: 1.4 cm MV EXCURSION: 12.148 mm (> 18.000) MV EF SLOPE: 75 mm/s (70 - 150) EPSS: 1.6 cm MV E Benjy: 1.02 m/s MV DecT: 117 ms MV A Benjy: 0.21 m/s MV E/A Ratio: 4.81 RAP: 5.00 mmHg RVSP: 7.73 mmHg FINDINGS -------- Sinus rhythm. AICD This was a technically difficult study with suboptimal views. There is moderate concentric left ventricular hypertrophy. Overall left ventricular systolic function is severely impaired with, an EF between 25 - 30 %. The right ventricle is normal in size and function. The left atrium is normal in size. The right atrium is normal in size. 1.5mg of Definity was utilized for enhancement of images The aortic valve was not well visualized. There is trace mitral regurgitation. Trace tricuspid regurgitation present. The right ventricular systolic pressure, as measured by Doppler, is 7.73mmHg. The pulmonic valve was not well visualized. CONCLUSIONS -------- 1. Sinus rhythm. 2. The aortic valve was not well visualized. 3. There is trace mitral regurgitation. 4. Trace tricuspid regurgitation present. 5. The right ventricular systolic pressure, as measured by Doppler, is 7.73mmHg. 6. The pulmonic valve was not well visualized. 7. AICD 8. This was a technically difficult study with suboptimal views. 9. There is moderate concentric left ventricular hypertrophy. 10. Overall left ventricular systolic function is severely impaired with, an EF between 25 - 30 %. 11. The right ventricle is normal in size and function. 12. The left atrium is normal in size. 13. The right atrium is normal in size. 14. 1.5mg of Definity was utilized for enhancement of images LAMP WIRER: Ceci Wilson RD
[2016-12-30] MEDS: METOPROLOL TARTRATE 50 MG TAB PO SCH ×2 (11:23→19:54)
[2016-12-30 11:37] LABS: Glucose,Whole Blood 345 mg/dL (75-99)
[2016-12-30] MEDS: GLIMEPIRIDE 4 MG TAB PO SCH ×2 (12:18→19:55)
[2016-12-30 13:32] LABS: Creatine Kinase MB 2.7 ng/mL (0.0-2.4); Troponin I 0.126 ng/mL (0.000-0.034)
[2016-12-30 14:27] VITALS: BMI 41.5
[2016-12-30 16:41] LABS: Glucose,Whole Blood 331 mg/dL (75-99)
[2016-12-30] MEDS ORDERED: Magnesium Replacement Protocol 1 EACH MISC MISCELLANE PRN (19:50)
[2016-12-30 20:02] LABS: Glucose,Whole Blood 196 mg/dL (75-99)
[2016-12-30] MEDS ORDERED: LINAGLIPTIN 5 MG TABLET PO SCH (21:00)
[2016-12-30] MEDS ORDERED: PANTOPRAZOLE 40 MG TABLET PO SCH (21:00)
[2016-12-30] MEDS ORDERED: ARIPiprazole 15 MG TAB PO SCH (21:00)
[2016-12-30] MEDS ORDERED: PRIMIDONE 50 MG TAB PO SCH (21:00)
[2016-12-30] MEDS: MAGNESIUM SULFATE-D5W PMX 1 GM in DEXTROSE/WATER 1 100ML.BAG IVPB SCH ×2 (21:08→22:00)
--- NOTE | 2016-12-30 23:04 | P.HPIM ---
History of Present Illness H&P Date: 12/30/16 Chief Complaint: Chest pain History of present complaint: This is a 41-year-old patient known to me from multiple admissions being followed by Dr. Irma Clay. Patient chronic stable medical conditions include congestive heart failure, diabetes as well as type II, GERD, hypertension, hiatal hernia, AICD. Patient extensive coronary artery disease history. The patient went camping when he walk even half a block a started feeling really tired short of breath. Decided to come back to his trailer fell extremely short of breath yet again EF chest pressure perspiration tired short of breath. The symptoms are not getting better he decided to come in. Review of systems. Constitutional tired HEENT as above Respiratory as above Cardiovascular as above Christo* Genitourinary none Muscle skeletal chronic low back pain Dermatological none Hematological none Lymphatics none Psychiatry some anxiety depression Neurological none Past history: Coronary artery disease, stroke, diabetes mellitus type 2, GERD, hyperlipidemia , hypertension, osteoporosis, sleep apnea, ischemic cardiopathy EF 40%, peripheral neuropathy, depression, suicidal in the past, and gastroparesis. Anxiety, depression, posttraumatic stress disorder Past surgical history: Appendectomy, cholecystectomy, cardiac cath with stent, right orchiectomy. Social history: no smoking, did alcohol the past. Family history: Coronary artery disease Home medications: Reviewed in the computer ALLERGIES: [place], codeine, meclizine, penicillin, shellfish, IV contrast dye, Keflex , naproxen, Lipitor, [place] VITAL SIGNS: 97.2, 94, 20, 182/98, pulse of 96 but room air, repeat blood pressure 126/51 GENERAL: Well-built, BMI 41.6, laying in bed, tired appearing. EYES: Pupils equal. Conjunctiva normal. HEENT: External appearance of nose and ears normal, oral cavity grossly normal. NECK: JVD not raised; masses not palpable. HEART: First and second heart sounds are normal; some edema edema. LUNGS: Respiratory rate normal; clear to auscultation. ABDOMEN: Soft, nontender, liver spleen not palpable, no masses palpable. LYMPHATICS: No lymph nodes palpable in the axilla and neck. PSYCH: Alert and oriented x3; mood and affect low appearingl. NEUROLOGICAL: Cranial nerves grossly intact; no facial asymmetry, power and sensation grossly intact. Investigations: Potassium 4.7, hemoglobin 11.6, potassium 5.2, BMI 19, creatinine 1.07 Troponin 0.0087, 0.062 EKG paced rhythm Checks [id number] Assessment: -Acute coronary syndrome with troponin leak in a patient known coronary artery disease -Chronic congestive heart failure from systolic dysfunction EF 40-45% from underlying coronary artery disease -Coronary artery disease by history of stent -Tab as well as type II chronically on insulin -GERD -Hyperlipidemia -Essential hypertension -Chronic sleep apnea -Tab as well as type II causing peripheral neuropathy -Chronic gastritis -Depression not otherwise specified -Primary osteoarthritis multiple is bilateral -Obesity BMI 41.6 Plan: Patient started on IV heparin. Home medications are reviewed. Cartilage was consulted. Care was discussed with the patient. Past Medical History Past Medical History: Coronary Artery Disease (CAD), Chest Pain / Angina, Heart Failure, CVA/TIA, Diabetes Mellitus, GERD/Reflux, Hyperlipidemia, Hypertension, Myocardial Infarction ([place]), Osteoarthritis (OA), Pneumonia, Skin Disorder, Sleep Apnea/CPAP/BIPAP Additional Past Medical History / Comment(s): HX: Coronary artery disease with multiple vessel disease, ischemic cardiomyopathy, diabetic neuropathy bilateral hands and feet, hypertension hypertensive cardiovascular disease, chronic gastritis, chronic back pain, depression with hx of suicide attempts, GASTROPARESIS, PSORIASES,NIDDM type II. Last Myocardial Infarction Date:: 06/03/16 per pt. 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 Past Anesthesia/Blood Transfusion Reactions: No Reported Reaction Additional Past Anesthesia/Blood Transfusion Reaction / Comment(s): . Date of Last Stent Placement:: 06/03/16 Type of Cardiac Device: Biventricular Pacemaker, AICD Device Placement Date:: 09/19/15 Past Psychological History: Anxiety, Depression, PTSD Additional Psychological History / Comment(s): Several suicide attempts with use of insulin. PTSD- IN 2000- HIS 3 MONTH OLD SON IN HIS ARMS(CHILD WAS BORN 2 MONTHS PREMATURE). Pt states his depression is stable at this time and does not have any suicidal thoughts or plans. He is independent. PT ON DISABILTY MULTIFACTORIAL PER PT. Smoking Status: Never smoker Past Alcohol Use History: Occasional Additional Past Alcohol Use History / Comment(s): pt states he drinks occassionally. Past Drug Use History: Marijuana Additional Drug Use History / Comment(s): NONE IN 15 YEARS (past alcoholic, but drinks occassionally per pt), has smoked marijuana - Past Family History Mother Family Medical History: Coronary Artery Disease (CAD), Myocardial Infarction ([place] ) Additional Family Medical History / Comment(s): 7 [place] and faulty heart valve. Pt does not know the age when mother had her MIs. Father History Unknown: Yes Additional Family Medical History / Comment(s): Does not know who father is Brother(s) Family Medical History: Congestive Heart Failure (CHF), Myocardial Infarction ( [place]) Additional Family Medical History / Comment(s): Parkinsons. Pt does not know at what age his brother had a [place] Patient has Family Medical History: No Reported History Additional Family Medical History / Comment(s): There is a strong family history for heart disease, hypertension, and diabetes. Medications and Allergies Home Medications Medication Instructions Recorded Confirmed Type Nitroglycerin Sl Tabs [Nitrostat] 0.4 mg SUBLINGUAL Q5M PRN 10/13/13 12/29/16 History Sertraline HCl [Zoloft] 200 mg PO DAILY 10/13/13 12/29/16 History Furosemide [Lasix] 40 mg PO DAILY 05/21/15 12/29/16 History metFORMIN HCL 1,000 mg PO BID 07/03/15 12/29/16 History Omeprazole [PriLOSEC] 40 mg PO HS 08/13/15 12/29/16 History Baclofen [Lioresal] 10 mg PO AC-TID PRN 01/13/16 12/29/16 History Dulaglutide [Trulicity] 1.5 mg SQ OROZCO 03/10/16 12/29/16 History Glimepiride 4 mg PO BID 03/10/16 12/29/16 History Rosuvastatin Calcium 40 mg PO HS 05/05/16 12/29/16 History Lisinopril [Zestril] 2.5 mg PO DAILY 06/01/16 12/29/16 History Gabapentin [Neurontin] 300 mg PO BID 06/09/16 12/29/16 History Ranolazine [Ranexa] 1,000 mg PO BID 06/09/16 12/29/16 History Primidone [Mysoline] 100 mg PO HS 06/30/16 12/29/16 History Loperamide [Imodium] 2 mg PO TID 10/20/16 12/29/16 History Metoprolol Tartrate 50 mg PO BID 10/20/16 12/29/16 History Aspirin EC [Ecotrin Low Dose] 81 mg PO DAILY 11/07/16 12/29/16 History Cholecalciferol (Vitamin D3) 2,000 unit PO DAILY 11/07/16 12/29/16 History [Vitamin D3] Abilify Odt 15 mg PO HS 12/19/16 12/29/16 History Linagliptin [Tradjenta] 5 mg PO HS 12/19/16 12/29/16 History Ranitidine HCl 150 mg PO DAILY 12/19/16 12/29/16 History Allergies Allergy/AdvReac Type Severity Reaction Status Date / Time erythromycin base Allergy Severe Swelling Verified 12/29/16 23:06 [Erythromycin Base] codeine Allergy Unknown Swelling Verified 12/29/16 23:06 meclizine Allergy Unknown Unknown Verified 11/07/16 20:45 Penicillins Allergy Unknown Rash/Hives Verified 12/29/16 23:06 shellfish derived Allergy Unknown Anaphylaxis Verified 12/29/16 23:06 Fish Containing Products Allergy Anaphylaxis Verified 12/29/16 23:06 [Fish] Iodinated Contrast- Oral and Allergy Anaphylaxis Verified 12/29/16 23:06 IV Dye cephalexin monohydrate AdvReac Unknown Nausea & Verified 12/29/16 23:06 [From Keflex] Vomiting naproxen AdvReac Unknown Compromises Verified 12/29/16 23:06 Kidney Function atorvastatin calcium AdvReac Myalgia Verified 12/29/16 23:06 [From Lipitor] hydrocodone [From [place]] AdvReac Rapid Verified 12/29/16 23:06 Heart Rate Results CBC & Chem 7: 12/29/16 23:45 12/29/16 23:45
[2016-12-31 05:14] LABS: Anion Gap 8 mmol/L; Blood Urea Nitrogen 18 mg/dL (9-20); Calcium 9.1 mg/dL (8.4-10.2); Carbon Dioxide 23 mmol/L (22-30); Chloride 105 mmol/L (98-107); Cholesterol 126 mg/dL (<200); Glucose 209 mg/dL (74-99); HDL Cholesterol 50 mg/dL (40-60); Magnesium 1.8 mg/dL (1.6-2.3); Non-African American GFR(MDRD) >60 (>60 ml/min/1.73 sqM); Potassium 4.8 mmol/L (3.5-5.1); Sodium 136 mmol/L (137-145)
[2016-12-31 05:53] LABS: Glucose,Whole Blood 245 mg/dL (75-99)
[2016-12-31] MEDS: INSULIN LISPRO (humaLOG) 300 UNIT/3 ML VIAL SQ SCH ×2 (05:54→12:59)
[2016-12-31] MEDS: metFORMIN 500 MG TAB PO SCH (05:55)
[2016-12-31] MEDS ORDERED: ASPIRIN 325 MG TAB PO SCH (09:00)
[2016-12-31] MEDS: FAMOTIDINE 20 MG TAB PO SCH (09:21)
[2016-12-31] MEDS: GABAPENTIN 300 MG CAP PO SCH (09:21)
[2016-12-31] MEDS: FUROSEMIDE 40 MG TAB PO SCH (09:21)
[2016-12-31] MEDS: LISINOPRIL 2.5 MG TAB PO SCH (09:22)
[2016-12-31] MEDS: RANOLAZINE 500 MG TAB.ER.12H PO SCH (09:22)
[2016-12-31] MEDS: SERTRALINE 100 MG TAB PO SCH (09:22)
[2016-12-31] MEDS: PRASUGREL 10 MG TAB PO SCH (09:22)
[2016-12-31] MEDS: METOPROLOL TARTRATE 50 MG TAB PO SCH (09:22)
[2016-12-31] MEDS: GLIMEPIRIDE 4 MG TAB PO SCH (09:23)
[2016-12-31] MEDS: HEPARIN SODIUM,PORCINE/D5W PMX 25,000 UNIT in DEXTROSE/WATER 1 500ML.BAG IV SCH (10:05)
[2016-12-31 11:29] VITALS: BP 129/80; PULSE 74; RESP 16; TEMP 97.9
[2016-12-31 11:52] LABS: Glucose,Whole Blood 314 mg/dL (75-99)
--- NOTE | 2016-12-31 13:12 | P.PN ---
Subjective Principal diagnosis: Chest pain This is a 41-year-old gentleman with known history of coronary artery disease and multiple stent placements, severe ischemic cardiomyopathy with prior AICD, hypertension, diabetes, hyperlipidemia, sleep apnea, prior TIA, GERD , he follows regularly now with a prevocational/rehabilitation counselor in the [place] area. Patient presents to the hospital on this occasion with symptoms of chest discomfort. He states that the symptoms started a couple of days ago, he describes as a pressure sensation in his chest, he has been using nitroglycerin at home with relief of symptoms. According to the patient, he states that he did have a heart catheterization performed a couple of months ago and was told to have no significant blockages requiring intervention. EKG on arrival here shows a V paced rhythm with underlying normal sinus rhythm. Chest x-ray does not reveal any acute findings. Blood pressure 138/90 with a heart rate in the 90s, 94% on room air. Hemoglobin 11.6, platelet count 203, potassium 5.2, BUN 19, creatinine 1.0. Troponins ointment 087, 0.062. BNP 757. At the time of my examination this morning, patient states he has mild burning in the center of his chest. He was pain-free through the night. Objective - Vital Signs Vital signs: Vital Signs Temp 97.9 F 12/31/16 11:28 Pulse 74 12/31/16 11:28 Resp 16 12/31/16 11:28 BP 129/80 12/31/16 11:28 Pulse Ox 96 12/31/16 11:28 Intake & Output 12/30/16 12/31/16 12/31/16 18:59 06:59 18:59 Intake Total 936.692 882.893 446.355 Output Total 1650 Balance -713.308 882.893 446.355 Weight 116.8 kg 117.6 kg Intake: IV 120 680 0.9 60 240 Heparin Sodium,Porcine/ 60 240 D5w Pmx 25,000 unit In Dextrose/Water 1 500ml. bag @ 8.6 UNITS/KG/HR 20. 12 mls/hr IV .Q24H [facility] Rx #:[id number] Magnesium Sulfate-D5w Pmx 200 1 gm In Dextrose/Water 1 100ml.bag @ 100 mls/hr IVPB Q1H [facility] Rx#: [id number] Intake, IV Titration 336.692 202.893 446.355 Amount Heparin Sodium,Porcine/ 336.692 202.893 446.355 D5w Pmx 25,000 unit In Dextrose/Water 1 500ml. bag @ 8.6 UNITS/KG/HR 20. 12 mls/hr IV .Q24H [facility] Rx #:[id number] Oral 480 Output: Urine 1650 Other: Voiding Method Urinal Urinal Urinal # Voids 1 0 - Exam PHYSICAL EXAMINATION: HEENT: Head is atraumatic, normocephalic. Pupils equal, round. Neck is supple. There is no elevated jugular venous pressure. HEART EXAMINATION: Heart S1, S2 normal. No murmur or gallop heard. CHEST EXAMINATION: Lungs are clear to auscultation and precussion. No chest wall tenderness is noted on palpation or with deep breathing. ABDOMEN: Soft, nontender. Bowel sounds are heard. No organomegaly noted. EXTREMITIES: 2+ peripheral pulses with no evidence of peripheral edema and no calf tenderness noted. NEUROLOGIC patient is awake, alert and oriented -3. . - Labs CBC & Chem 7: 12/29/16 23:45 12/31/16 04:06 Labs: Abnormal Lab Results - Last 24 Hours (Table) 12/30/16 12/30/16 12/30/16 Range/Units 11:42 15:40 16:38 APTT 21.9 L (22.0-30.0) sec Sodium (137-145) mmol/L Glucose (74-99) mg/dL POC Glucose (mg/dL) 331 H (75-99) mg/dL CK-MB (CK-2) 2.7 H* (0.0-2.4) ng/mL Troponin I 0.126 H* (0.000-0.034) ng/mL 12/30/16 12/30/16 12/31/16 Range/Units 20:01 22:15 04:06 APTT 39.2 H (22.0-30.0) sec Sodium 136 L (137-145) mmol/L Glucose 209 H (74-99) mg/dL POC Glucose (mg/dL) 196 H (75-99) mg/dL CK-MB (CK-2) (0.0-2.4) ng/mL Troponin I (0.000-0.034) ng/mL 12/31/16 12/31/16 12/31/16 Range/Units 04:06 05:53 11:48 APTT 60.6 H (22.0-30.0) sec Sodium (137-145) mmol/L Glucose (74-99) mg/dL POC Glucose (mg/dL) 245 H 314 H (75-99) mg/dL CK-MB (CK-2) (0.0-2.4) ng/mL Troponin I (0.000-0.034) ng/mL Assessment and Plan Plan: Assessment and plan #1 Chest pain in a patient with known history of coronary artery disease. Troponins 0.087, 0.062. Upon review of prior records, patient has had abnormal troponins in the past with normal heart cath. EKG shows ventricular paced rhythm with underlying normal sinus rhythm. No acute changes noted. #2 ischemic cardiomyopathy with prior AICD #3 hypertension #4 hyperlipidemia #5 coronary artery disease with multiple stent placements, patient states he recently had a heart catheterization performed in the past couple of months at [place] and was told not to have any significant obstructive coronary artery disease. #6 diabetes #7 sleep apnea #8 prior TIA Plan From cardiology's perspective, patient may be able to be discharged home today. He has been instructed to follow-up with his prevocational/rehabilitation counselor in [place]. DNP note has been reviewed, I agree with a documented findings and plan of care. Patient was seen and examined.
[2017-01-04] MEDS ORDERED: NON-FORMULARY DRUG (Dulaglutide [Trulicity] 1.5 MG) SQ SCH (01:12)
== END 2016-12-31 15:53 | disposition home or self-care (01) | DRG 303 ==
LOC: EC 22:29 → 6SEL 12-30 01:08 → OBSVTOIN 12-30 01:08 → 6SEL 12-30 21:15
PROVIDERS: ADMIT Hospitalist; ATTEND Hospitalist
DX: I25.110 Atherosclerotic heart disease of native coronary artery with unstable angina pectoris (principal); E11.42 Type 2 diabetes mellitus with diabetic polyneuropathy; I50.22 Chronic systolic (congestive) heart failure; Z68.41 Body mass index [BMI] 40.0-44.9, adult; K31.84 Gastroparesis; I11.0 Hypertensive heart disease with heart failure; I25.5 Ischemic cardiomyopathy; E66.9 Obesity, unspecified; E11.43 Type 2 diabetes mellitus with diabetic autonomic (poly)neuropathy; E78.5 Hyperlipidemia, unspecified; K29.50 Unspecified chronic gastritis without bleeding; M19.91 Primary osteoarthritis, unspecified site; M81.0 Age-related osteoporosis without current pathological fracture; M54.5 Low back pain; G89.29 Other chronic pain; F41.8 Other specified anxiety disorders; F43.10 Post-traumatic stress disorder, unspecified; K44.9 Diaphragmatic hernia without obstruction or gangrene; K21.9 Gastro-esophageal reflux disease without esophagitis; I25.2 Old myocardial infarction; G47.30 Sleep apnea, unspecified; F12.90 Cannabis use, unspecified, uncomplicated; Z79.02 Long term (current) use of antithrombotics/antiplatelets; Z79.82 Long term (current) use of aspirin; Z79.84 Long term (current) use of oral hypoglycemic drugs; Z79.899 Other long term (current) drug therapy; Z86.73 Personal history of transient ischemic attack (TIA), and cerebral infarction without residual deficits; Z95.810 Presence of automatic (implantable) cardiac defibrillator; Z95.5 Presence of coronary angioplasty implant and graft; Z95.0 Presence of cardiac pacemaker; Z91.5 Personal history of self-harm; Z88.8 Allergy status to other drugs, medicaments and biological substances; Z88.1 Allergy status to other antibiotic agents; Z91.041 Radiographic dye allergy status; Z88.5 Allergy status to narcotic agent; Z88.0 Allergy status to penicillin; Z91.013 Allergy to seafood; Z82.49 Family history of ischemic heart disease and other diseases of the circulatory system
CPT/HCPCS: 36415; 71020; 80048; 80053; 80061; 81001; 82550; 82553; 83036; 83735; 83880; 84484; 85025; 85610; 85730; 93306; 96372; 99285

== ENCOUNTER 2017-01-19 23:52 | Inpatient (IN) | payer MEDICARE, MEDICAID ==
--- NOTE | 2017-01-20 00:07 | ED ---
Psych HPI - General Chief Complaint: Psychiatric Symptoms Stated Complaint: Mental Health Time Seen by Provider: 01/19/17 23:59 Source: patient, RN notes reviewed Mode of arrival: ambulatory Limitations: no limitations - History of Present Illness Initial Comments: 41-year-old male presents emergency Department chief complaint depression, homicidal and suicidal thoughts. Patient states that he wants to kill his ex- months. Patient states he is no drive his van through his house or blowup his vehicles. Patient states he has plans to cut himself would not do this. Patient has stopped his psychiatric medications. Patient has not cut himself or injure himself in any way is no illicit drug use no alcohol abuse at this time. - Related Data Home Medications Medication Instructions Recorded Confirmed Nitroglycerin Sl Tabs [Nitrostat] 0.4 mg SUBLINGUAL Q5M PRN 10/13/13 12/29/16 Sertraline HCl [Zoloft] 200 mg PO DAILY 10/13/13 12/29/16 Furosemide [Lasix] 40 mg PO DAILY 05/21/15 12/29/16 metFORMIN HCL 1,000 mg PO BID 07/03/15 12/29/16 Omeprazole [PriLOSEC] 40 mg PO HS 08/13/15 12/29/16 Baclofen [Lioresal] 10 mg PO AC-TID PRN 01/13/16 12/29/16 Dulaglutide [Trulicity] 1.5 mg SQ OROZCO 03/10/16 12/29/16 Glimepiride 4 mg PO BID 03/10/16 12/29/16 Rosuvastatin Calcium 40 mg PO HS 05/05/16 12/29/16 Lisinopril [Zestril] 2.5 mg PO DAILY 06/01/16 12/29/16 Gabapentin [Neurontin] 300 mg PO BID 06/09/16 12/29/16 Ranolazine [Ranexa] 1,000 mg PO BID 06/09/16 12/29/16 Primidone [Mysoline] 100 mg PO HS 06/30/16 12/29/16 Loperamide [Imodium] 2 mg PO TID 10/20/16 12/29/16 Metoprolol Tartrate 50 mg PO BID 10/20/16 12/29/16 Aspirin EC [Ecotrin Low Dose] 81 mg PO DAILY 11/07/16 12/29/16 Cholecalciferol (Vitamin D3) 2,000 unit PO DAILY 11/07/16 12/29/16 [Vitamin D3] Abilify Odt 15 mg PO HS 12/19/16 12/29/16 Linagliptin [Tradjenta] 5 mg PO HS 12/19/16 12/29/16 Ranitidine HCl 150 mg PO DAILY 12/19/16 12/29/16 Previous Rx's Medication Instructions Recorded Prasugrel [Effient] 10 mg PO DAILY tab 07/01/16 Allergies Allergy/AdvReac Type Severity Reaction Status Date / Time erythromycin base Allergy Severe Swelling Verified 01/19/17 23:58 [Erythromycin Base] codeine Allergy Unknown Swelling Verified 01/19/17 23:58 meclizine Allergy Unknown Unknown Verified 01/19/17 23:58 Penicillins Allergy Unknown Rash/Hives Verified 01/19/17 23:58 shellfish derived Allergy Unknown Anaphylaxis Verified 01/19/17 23:58 Fish Containing Products Allergy Anaphylaxis Verified 01/19/17 23:58 [Fish] Iodinated Contrast- Oral and Allergy Anaphylaxis Verified 01/19/17 23:58 IV Dye cephalexin monohydrate AdvReac Unknown Nausea & Verified 01/19/17 23:58 [From Keflex] Vomiting naproxen AdvReac Unknown Compromises Verified 01/19/17 23:58 Kidney Function atorvastatin calcium AdvReac Myalgia Verified 01/19/17 23:58 [From Lipitor] hydrocodone [From [place]] AdvReac Rapid Verified 01/19/17 23:58 Heart Rate Review of Systems ROS Statement: Those systems with pertinent positive or pertinent negative responses have been documented in the HPI. ROS Other: All systems not noted in ROS Statement are negative. Past Medical History Past Medical History: Coronary Artery Disease (CAD), Chest Pain / Angina, Heart Failure, CVA/TIA, Diabetes Mellitus, GERD/Reflux, Hyperlipidemia, Hypertension, Myocardial Infarction ([place]), Osteoarthritis (OA), Pneumonia, Skin Disorder, Sleep Apnea/CPAP/BIPAP Additional Past Medical History / Comment(s): HX: Coronary artery disease with multiple vessel disease, ischemic cardiomyopathy, diabetic neuropathy bilateral hands and feet, hypertension hypertensive cardiovascular disease, chronic gastritis, chronic back pain, depression with hx of suicide attempts, GASTROPARESIS, PSORIASES,NIDDM type II. Last Myocardial Infarction Date:: 06/03/16 per pt. 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 Past Anesthesia/Blood Transfusion Reactions: No Reported Reaction Additional Past Anesthesia/Blood Transfusion Reaction / Comment(s): . Date of Last Stent Placement:: 06/03/16 Type of Cardiac Device: Biventricular Pacemaker, AICD Device Placement Date:: 09/19/15 Past Psychological History: Anxiety, Depression, PTSD Smoking Status: Never smoker Past Alcohol Use History: Occasional Past Drug Use History: Marijuana - Past Family History Mother Family Medical History: Coronary Artery Disease (CAD), Myocardial Infarction ([place] ) Additional Family Medical History / Comment(s): 7 [place] and faulty heart valve. Pt does not know the age when mother had her MIs. Father History Unknown: Yes Additional Family Medical History / Comment(s): Does not know who father is Brother(s) Family Medical History: Congestive Heart Failure (CHF), Myocardial Infarction ( [place]) Additional Family Medical History / Comment(s): Parkinsons. Pt does not know at what age his brother had a [place] Patient has Family Medical History: No Reported History Additional Family Medical History / Comment(s): There is a strong family history for heart disease, hypertension, and diabetes. General Exam Limitations: no limitations General appearance: alert, in no apparent distress Head exam: Present: atraumatic, normocephalic, normal inspection Eye exam: Present: normal appearance, PERRL, EOMI. Absent: scleral icterus, conjunctival injection, periorbital swelling ENT exam: Present: normal exam, normal oropharynx, mucous membranes moist Neck exam: Present: normal inspection, full ROM. Absent: tenderness, meningismus, lymphadenopathy Respiratory exam: Present: normal lung sounds bilaterally. Absent: respiratory distress, wheezes, rales, rhonchi, stridor Cardiovascular Exam: Present: regular rate, normal rhythm, normal heart sounds. Absent: systolic murmur, diastolic murmur, rubs, gallop, clicks GI/Abdominal exam: Present: soft, normal bowel sounds. Absent: distended, tenderness, guarding, rebound, rigid Neurological exam: Present: alert, oriented X3, CN II-XII intact Psychiatric exam: Present: depressed, flat affect Course Vital Signs 01/19/17 23:55 Temperature 98.3 F Pulse Rate 113 H Respiratory 18 Rate Blood Pressure 184/108 O2 Sat by Pulse 98 Oximetry Medical Decision Making - Lab Data Lab Results 01/20/17 Range/Units 00:17 Urine Opiates Screen Not Detected (NotDetected) Ur Oxycodone Screen Not Detected (NotDetected) Urine Methadone Screen Not Detected (NotDetected) Ur Propoxyphene Screen Not Detected (NotDetected) Ur Barbiturates Screen Detected H (NotDetected) U Tricyclic Antidepress Not Detected (NotDetected) Ur Phencyclidine Scrn Not Detected (NotDetected) Ur Amphetamines Screen Not Detected (NotDetected) U Methamphetamines Scrn Not Detected (NotDetected) U Benzodiazepines Scrn Not Detected (NotDetected) Urine Cocaine Screen Not Detected (NotDetected) U Marijuana (THC) Screen Not Detected (NotDetected) Disposition Clinical Impression: Suicidal ideation, Depressed Disposition: ADMITTED IP TO THIS [facility] Condition: Stable Referrals: Junie New MD [Primary Care Provider] - 1-2 days
[2017-01-20] MEDS ORDERED: ACETAMINOPHEN TAB 325 MG TAB PO PRN (04:22)
[2017-01-20] MEDS ORDERED: MAG HYDROX/AL HYDROX/SIMETH 30 ML CUP PO PRN (04:22)
[2017-01-20] MEDS ORDERED: MAGNESIUM HYDROXIDE 2,400 MG/10 ML CUP PO PRN (04:22)
[2017-01-20] MEDS ORDERED: NICOTINE 14MG/24HR PATCH TRANSDERM SCH (09:00)
[2017-01-20] MEDS: metFORMIN 500 MG TAB PO SCH ×2 (09:26→20:52)
[2017-01-20] MEDS: LISINOPRIL 2.5 MG TAB PO SCH (09:26)
[2017-01-20] MEDS: SERTRALINE 50 MG TAB PO SCH (09:49)
[2017-01-20 10:32] LABS: Basophils % (A) 1 %; CH 26.5; CHCM 32.5; Eosinophils # (A) 0.2 k/uL (0-0.7); Eosinophils % (A) 4 %; HCT 38.1 % (39.0-53.0); HDW 3.26; HGB 13.1 gm/dL (13.0-17.5); Hypochromasia Slight; Luc # (Auto) 0.14; Luc % (Auto) 3; Lymphocytes # (A) 1.4 k/uL (1.0-4.8); Lymphocytes % (A) 29 %; MCH 28.1 pg (25.0-35.0); MCHC 34.4 g/dL (31.0-37.0); MCV 81.8 fL (80.0-100.0); Mean Platelet Volume 8.1; Monocytes # (A) 0.3 k/uL (0-1.0); Monocytes % (A) 6 %; Neutrophils # (A) 2.9 k/uL (1.3-7.7); Neutrophils % (A) 58 %; RBC 4.66 m/uL (4.30-5.90); RDW 14.9 % (11.5-15.5); WBC (Perox) 5.17
[2017-01-20 10:47] LABS: ALT 27 U/L (21-72); AST 25 U/L (17-59); Alkaline Phosphatase 97 U/L (38-126); Anion Gap 12 mmol/L; Blood Urea Nitrogen 12 mg/dL (9-20); Calcium 9.1 mg/dL (8.4-10.2); Carbon Dioxide 23 mmol/L (22-30); Chloride 101 mmol/L (98-107); Glucose 323 mg/dL (74-99); Non-African American GFR(MDRD) >60 (>60 ml/min/1.73 sqM); Potassium 4.7 mmol/L (3.5-5.1); Sodium 136 mmol/L (137-145); Total Bilirubin 0.8 mg/dL (0.2-1.3); Total Protein 5.9 g/dL (6.3-8.2)
[2017-01-20] MEDS: PRASUGREL 10 MG TAB PO SCH (12:00)
[2017-01-20 12:24] LABS: Hemoglobin A1C 10.5 % (4.2-6.1)
[2017-01-20 12:55] LABS: Glucose,Whole Blood 288 mg/dL (75-99)
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
[2017-01-20 14:01] VITALS: BMI 41.9
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
[2017-01-20 17:26] LABS: Glucose,Whole Blood 222 mg/dL (75-99)
[2017-01-20] MEDS: GLIMEPIRIDE 4 MG TAB PO SCH (18:07)
[2017-01-20] MEDS: PRIMIDONE 50 MG TAB PO SCH (20:50)
[2017-01-20 20:51] LABS: Glucose,Whole Blood 245 mg/dL (75-99)
[2017-01-20] MEDS: METOPROLOL TARTRATE 50 MG TAB PO SCH (20:51)
[2017-01-20] MEDS: LINAGLIPTIN 5 MG TABLET PO SCH (20:51)
[2017-01-20] MEDS: RANOLAZINE 500 MG TAB.ER.12H PO SCH (20:51)
[2017-01-20] MEDS: GABAPENTIN 300 MG CAP PO SCH (20:53)
[2017-01-20] MEDS: ARIPiprazole 5 MG TAB PO SCH (20:54)
[2017-01-20] MEDS: PANTOPRAZOLE 40 MG TABLET PO SCH (21:19)
[2017-01-20] MEDS: CRESTOR 40 MG PO SCH (21:20)
[2017-01-20] MEDS: BACLOFEN 10 MG TAB PO PRN (21:21)
[2017-01-21 06:37] LABS: Glucose,Whole Blood 97 mg/dL (75-99)
[2017-01-21] MEDS: GLIMEPIRIDE 4 MG TAB PO SCH ×2 (08:57→18:09)
[2017-01-21] MEDS: metFORMIN 500 MG TAB PO SCH ×2 (08:57→21:22)
[2017-01-21] MEDS: LISINOPRIL 2.5 MG TAB PO SCH (08:57)
[2017-01-21] MEDS: RANOLAZINE 500 MG TAB.ER.12H PO SCH ×2 (08:57→21:23)
[2017-01-21] MEDS: PRASUGREL 10 MG TAB PO SCH (08:57)
[2017-01-21] MEDS: GABAPENTIN 300 MG CAP PO SCH ×2 (08:58→21:23)
[2017-01-21] MEDS: SERTRALINE 50 MG TAB PO SCH (08:58)
[2017-01-21] MEDS: FUROSEMIDE 40 MG TAB PO SCH (08:58)
[2017-01-21] MEDS: ASPIRIN 81 MG CHEW PO SCH (08:58)
[2017-01-21] MEDS: METOPROLOL TARTRATE 50 MG TAB PO SCH ×2 (08:58→21:23)
[2017-01-21 09:52] LABS: Anion Gap 12 mmol/L; Blood Urea Nitrogen 13 mg/dL (9-20); Calcium 9.2 mg/dL (8.4-10.2); Carbon Dioxide 21 mmol/L (22-30); Chloride 102 mmol/L (98-107); Glucose 221 mg/dL (74-99); Non-African American GFR(MDRD) >60 (>60 ml/min/1.73 sqM); Potassium 4.4 mmol/L (3.5-5.1); Sodium 135 mmol/L (137-145)
[2017-01-21] MEDS: BACLOFEN 10 MG TAB PO PRN ×2 (10:21→21:23)
--- NOTE | 2017-01-21 12:34 | P.PN ---
Progress Note - Text Interval History: Patient is a 41-year-old male who was seen today and he reports that he is feeling much better. He states that his thinking is clearer as well. Patient reports no current suicidal ideation and states she is still depressed and upset about having lost his job but is now looking at eyeing to other [employer] companies when he is discharged. Patient reports no side effects from restarting Abilify 5 mg and Zoloft 50 mg. Patient states that he sees his discontinuing his medication was not as smart idea and states that physically he is feeling better as well. Patient reports that he slept fairly well last evening and is feeling rested this morning and is eating a better diet here as well. Mental Status: Appearance/Attitude: Patient is appropriately and neatly dressed , makes good eye contact and is cooperative. Behavior: Patient is not displaying any psychomotor agitation or retardation. Speech/Language: Patient's speech is spontaneous, normal volume and rhythm and he is coherent. Thought Process: Patient is goal-directed and there is no evidence of circumstantial or tangential thought and no loose associations or flight of ideas. Thought Content: Patient denies any auditory or visual hallucinations no delusions or paranoid ideation were elicited. Patient states that he is thinking clearer today and feeling more rested, states that he slept well last evening. Patient reports that physically he is feeling better when he since he has been restarted on his medications. Suicidal/Homicidal Ideation: Patient denies any current suicidal or homicidal ideation. Sensorium/Cognition: Patient is alert and oriented to person, place, and time and his memory is grossly intact. Mood/Affect: Patient's mood is less depressed and his affect is brighter. Insight/Judgement: Patient's insight and judgment are fair. Assessment: Patient reports that he is feeling better both mentally and physically once he has been restarted on his medications and states that he slept well last evening and is thinking much clearer than he was before. He reports that he is no longer having any suicidal thoughts. 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 Plan: Patient will continue on his current medications for his medical problems , will continue on Abilify 5 mg daily and increase his Zoloft beginning tomorrow to 75 mg. Patient continues to require hospitalization to stabilize his mood but we discussed discharge possibly by the end of the week. Patient was encouraged to attend groups and activities and participate.
[2017-01-21 14:08] LABS: Glucose,Whole Blood 199 mg/dL (75-99)
[2017-01-21 17:14] LABS: Glucose,Whole Blood 138 mg/dL (75-99)
[2017-01-21 20:26] LABS: Glucose,Whole Blood 135 mg/dL (75-99)
[2017-01-21] MEDS: ARIPiprazole 5 MG TAB PO SCH (21:23)
[2017-01-21] MEDS: PANTOPRAZOLE 40 MG TABLET PO SCH (21:23)
[2017-01-21] MEDS: LINAGLIPTIN 5 MG TABLET PO SCH (21:23)
[2017-01-21] MEDS: PRIMIDONE 50 MG TAB PO SCH (21:23)
[2017-01-21] MEDS: CRESTOR 40 MG PO SCH (21:24)
[2017-01-22 06:15] LABS: Glucose,Whole Blood 152 mg/dL (75-99)
[2017-01-22] MEDS: GLIMEPIRIDE 4 MG TAB PO SCH ×2 (08:53→17:47)
[2017-01-22] MEDS: LISINOPRIL 2.5 MG TAB PO SCH (08:53)
[2017-01-22] MEDS: FUROSEMIDE 40 MG TAB PO SCH (08:53)
[2017-01-22] MEDS: ASPIRIN 81 MG CHEW PO SCH (08:53)
[2017-01-22] MEDS: METOPROLOL TARTRATE 50 MG TAB PO SCH ×2 (08:53→21:11)
[2017-01-22] MEDS: PRASUGREL 10 MG TAB PO SCH (08:53)
[2017-01-22] MEDS: metFORMIN 500 MG TAB PO SCH ×2 (08:57→21:11)
[2017-01-22] MEDS: RANOLAZINE 500 MG TAB.ER.12H PO SCH ×2 (08:57→21:11)
[2017-01-22] MEDS: GABAPENTIN 300 MG CAP PO SCH ×2 (08:58→21:11)
[2017-01-22] MEDS ORDERED: SERTRALINE 25 MG TAB PO SCH (09:00)
[2017-01-22 12:01] LABS: Glucose,Whole Blood 268 mg/dL (75-99)
--- NOTE | 2017-01-22 14:00 | P.PN ---
Progress Note - Text Interval History: Patient is a 41-year-old male who was seen today and he reports that he slept well last evening but feels a little foggy this morning. He reports he is not having any suicidal ideation but continues to feel depressed but states it is improving since his admission. He states he is upset about the job loss but has other plans and hopes to act on them once he is discharged. He states he has more energy and has been attending groups and participating. Patient states his anxiety is less. He states he still feels uncertain about returning home due to how he is currently feeling, still somewhat hopeless about the future. He states he is trying to think more positively but continues to return to negative thoughts. Patient reports no side effects from the medication. Mental Status: Appearance/Attitude: Patient is neatly and appropriately dressed , makes good eye contact and is cooperative. Behavior: Patient displays no psychomotor agitation or retardation. Speech/Language: Patient's speech is spontaneous and of normal volume and rhythm and he is coherent. Thought Process: Patient is goal-directed and there is no evidence of circumstantial or tangential thought and no loose associations or flight of ideas. Thought Content: Patient denies any auditory or visual hallucinations no delusions or paranoid ideation are elicited. Patient states that his energy is increasing but he still feels tired, he continues to think negatively about things but is trying to refocus to more positive thoughts. Patient states he continues to feel depressed but states it is less than it on admission. States that he is sleeping well and his appetite is good and states that he is eating a better diet here, referring to portion size. Suicidal/Homicidal Ideation: [Patient denies any current suicidal or homicidal ideation] Sensorium/Cognition: Patient is alert and oriented to person, place, and time and his memory is grossly intact. Mood/Affect: Patient's mood remains depressed, his affect remains slightly blunted. Insight/Judgement: Patient's insight and judgment are fair. Assessment: Patient reports his sleep has improved, he is physically feeling better as he has restarted all of his prior medications. Patient states he is feeling less depressed but remains negative at times and is trying to refocus to more positive thoughts. He states his energy level is increasing and he has been attending groups and activities. He reports that he is less anxious than he was on admission. Patient is reporting no complaints of side effects from the medication. Patient still feels has attended about returning home for fear that the depressive symptoms and suicidal thoughts will return. Plan: We discussed increasing his Zoloft tomorrow to 100 mg in the morning and Abilify 10 mg tomorrow evening. Patient and I discussed continuing to titrate these 2 is close to his last doses and we discussed increasing his Zoloft to 150 mg on Thursday and evaluating his response to the Abilify 10 mg before increasing it further. Patient was agreeable to this plan and we discussed discharge early at the beginning of next week. Patient continues to require hospitalization to stabilize his mood and prevent a relapse.
[2017-01-22 17:45] LABS: Glucose,Whole Blood 142 mg/dL (75-99)
[2017-01-22 20:08] LABS: Glucose,Whole Blood 169 mg/dL (75-99)
[2017-01-22] MEDS: ARIPiprazole 5 MG TAB PO SCH (21:11)
[2017-01-22] MEDS: PRIMIDONE 50 MG TAB PO SCH (21:11)
[2017-01-22] MEDS: PANTOPRAZOLE 40 MG TABLET PO SCH (21:11)
[2017-01-22] MEDS: LINAGLIPTIN 5 MG TABLET PO SCH (21:11)
[2017-01-22] MEDS: CRESTOR 40 MG PO SCH (21:14)
[2017-01-23] MEDS: BACLOFEN 10 MG TAB PO PRN ×2 (02:39→22:43)
[2017-01-23 06:07] LABS: Glucose,Whole Blood 91 mg/dL (75-99)
[2017-01-23] MEDS: METOPROLOL TARTRATE 50 MG TAB PO SCH ×2 (08:24→21:16)
[2017-01-23] MEDS: GABAPENTIN 300 MG CAP PO SCH ×2 (08:24→21:15)
[2017-01-23] MEDS: GLIMEPIRIDE 4 MG TAB PO SCH ×2 (08:24→18:17)
[2017-01-23] MEDS: metFORMIN 500 MG TAB PO SCH ×2 (08:24→21:15)
[2017-01-23] MEDS: LISINOPRIL 2.5 MG TAB PO SCH (08:24)
[2017-01-23] MEDS: ASPIRIN 81 MG CHEW PO SCH (08:24)
[2017-01-23] MEDS: PRASUGREL 10 MG TAB PO SCH (08:24)
[2017-01-23] MEDS: FUROSEMIDE 40 MG TAB PO SCH (08:24)
[2017-01-23] MEDS: RANOLAZINE 500 MG TAB.ER.12H PO SCH ×2 (08:24→21:15)
[2017-01-23] MEDS ORDERED: SERTRALINE 100 MG TAB PO SCH (09:00)
[2017-01-23 12:48] LABS: Glucose,Whole Blood 164 mg/dL (75-99)
--- NOTE | 2017-01-23 12:52 | P.PN ---
Progress Note - Text Interval History: Patient is a 41-year-old male who was seen today and he reports that he is just not feeling physically well, reporting feeling drained with no energy. He states he has been sleeping well at night but continues to feel tired and worn out during the day. He states he is not feeling more depressed his depression persists but it is not worse than on admission. Patient reports no side effects from any of the medication that he can identify. Patient reports no current suicidal ideation. Patient states that he has been eating appropriately on the unit. Mental Status: Appearance/Attitude: Patient is appropriately dressed, makes good eye contact and does appear tired and is cooperative. Behavior: Patient does not display any psychomotor agitation or retardation. Speech/Language: Patient's speech is spontaneous and of normal volume and rhythm and he is coherent. Thought Process: Patient is goal-directed without evidence of circumstantial or tangential thought and no loose associations or flight of ideas. Thought Content: Patient denies any auditory or visual hallucinations no delusions or paranoid ideation are elicited. Patient reports that he is feeling drained with no energy and is unclear of the cause. Patient states that he is sleeping and eating well. Suicidal/Homicidal Ideation: Patient denies any current suicidal or homicidal ideation. Sensorium/Cognition: Patient is alert and oriented to person, place, and time and his memory is grossly intact. Mood/Affect: Patient remains depressed, and his affect is blunted. Insight/Judgement: Patient's insight and judgment are fair. Assessment: Patient continues to complain of depression, it is improving since his admission but today reports that he is physically not feeling well with decreased energy and feeling drained. He reports no current suicidal ideation. Patient has been attending groups and activities and states he is sleeping well. Patient was not on his medication for several weeks prior to admission and they were restarted on the day of admission Plan: Will increase patient's Zoloft to 150 mg beginning tomorrow morning and increase his Abilify to 10 mg tonight, patient was on 200 mg of Zoloft as an outpatient and Abilify 15 mg. We will slowly continue to increase his medications to achieve those prior dosages. We will have medical consult and return to evaluate patient. Patient and I discussed possible discharge on Thursday or Thursday once he is return to his prior medication levels and he will follow-up with [facility] at that time.
[2017-01-23 15:27] LABS: Glucose,Whole Blood 210 mg/dL (75-99)
[2017-01-23 17:43] LABS: Glucose,Whole Blood 169 mg/dL (75-99)
[2017-01-23 18:49] LABS: Basophils % (A) 1 %; CH 27.6; Eosinophils # (A) 0.2 k/uL (0-0.7); Eosinophils % (A) 4 %; HCT 39.2 % (39.0-53.0); HDW 3.28; HGB 13.5 gm/dL (13.0-17.5); Luc # (Auto) 0.15; Luc % (Auto) 3; Lymphocytes % (A) 33 %; MCH 27.3 pg (25.0-35.0); MCHC 34.5 g/dL (31.0-37.0); Mean Platelet Volume 7.5; Monocytes # (A) 0.3 k/uL (0-1.0); Monocytes % (A) 4 %; Neutrophils # (A) 3.2 k/uL (1.3-7.7); Neutrophils % (A) 55 %; RBC 4.96 m/uL (4.30-5.90); WBC 5.8 k/uL (3.8-10.6); WBC (Perox) 6.04
[2017-01-23 18:59] LABS: Anion Gap 10 mmol/L; Blood Urea Nitrogen 29 mg/dL (9-20); Calcium 9.1 mg/dL (8.4-10.2); Carbon Dioxide 21 mmol/L (22-30); Chloride 99 mmol/L (98-107); Glucose 184 mg/dL (74-99); Non-African American GFR(MDRD) 52 (>60 ml/min/1.73 sqM); Potassium 5.2 mmol/L (3.5-5.1); Sodium 130 mmol/L (137-145)
[2017-01-23 20:16] LABS: Glucose,Whole Blood 255 mg/dL (75-99)
[2017-01-23] MEDS: NITROGLYCERIN SL TABS 0.4 MG TAB SUBLINGUAL PRN (20:44)
[2017-01-23] MEDS ORDERED: ARIPiprazole 10 MG TAB PO SCH (21:00)
[2017-01-23] MEDS: LINAGLIPTIN 5 MG TABLET PO SCH (21:15)
[2017-01-23] MEDS: PRIMIDONE 50 MG TAB PO SCH (21:16)
[2017-01-23] MEDS: PANTOPRAZOLE 40 MG TABLET PO SCH (21:16)
[2017-01-23] MEDS: CRESTOR 40 MG PO SCH (21:23)
[2017-01-24 06:25] LABS: Glucose,Whole Blood 170 mg/dL (75-99)
[2017-01-24 06:47] VITALS: TEMP 97.7
[2017-01-24] MEDS: metFORMIN 500 MG TAB PO SCH (08:08)
[2017-01-24] MEDS: FUROSEMIDE 40 MG TAB PO SCH (08:08)
[2017-01-24] MEDS: GLIMEPIRIDE 4 MG TAB PO SCH (08:08)
[2017-01-24] MEDS: RANOLAZINE 500 MG TAB.ER.12H PO SCH (08:08)
[2017-01-24] MEDS: LISINOPRIL 2.5 MG TAB PO SCH (08:08)
[2017-01-24] MEDS: ASPIRIN 81 MG CHEW PO SCH (08:08)
[2017-01-24] MEDS: PRASUGREL 10 MG TAB PO SCH (08:09)
[2017-01-24] MEDS: GABAPENTIN 300 MG CAP PO SCH (08:09)
[2017-01-24] MEDS: METOPROLOL TARTRATE 50 MG TAB PO SCH (08:09)
[2017-01-24 08:33] VITALS: RESP 16
[2017-01-24] MEDS ORDERED: SERTRALINE 50 MG TAB PO SCH (09:00)
[2017-01-24 09:53] LABS: Appearance,Urine Clear (Clear); Bilirubin,Urine Negative (Negative); Glucose,Urine (UA) Negative (Negative); Ketones,Urine Negative (Negative); Leukocyte Esterase,Urine Negative (Negative); Nitrite,Urine Negative (Negative); Protein,Urine Trace (Negative); Specific Gravity,Urine 1.009 (1.001-1.035); UA Billing (MACRO vs. MICRO) CHEM; Urobilinogen,Urine <2.0 mg/dL (<2.0)
[2017-01-24 12:54] LABS: Glucose,Whole Blood 186 mg/dL (75-99)
[2017-01-24] MEDS: NITROGLYCERIN SL TABS 0.4 MG TAB SUBLINGUAL PRN ×2 (13:23→14:36)
[2017-01-24 15:27] VITALS: BP 98/47; PULSE 80
--- NOTE | 2017-01-24 15:47 | PN ---
PROGRESS NOTE DATE OF SERVICE: 01/25/2017 CHIEF COMPLAINT: The patient was admitted for increasing problems with depression. He was sleeping excessively. He was socially withdrawn. He had loss of energy and motivation. He spent most of his time in bed. He had recent health issues. INTERVAL HISTORY: The patient has been doing fair. He had a quiet evening last night. He slept fairly well. Today he has been up. He says that he is feeling fatigued. He had the same complaint yesterday. He said overall he thinks his mood is improving as far as depression goes, though in the last couple days he feels a little down in his mood, mainly relating to how he feels physically. He says he feels fatigued, lightheaded and winded when he walks. It is noted that he did have lab work drawn on . He tolerates his psychotropic medications. MENTAL STATUS EXAM: Patient gave fair eye contact. Psychomotor activity was slowed. Speech was monotone. He answered questions with brief responses. His thoughts were clear, his affect was blunted and his mood reserved. He seems somewhat distressed. ASSESSMENT: I will continue the current diagnosis and treatment plan. I will continue psychotropic medications the same. Lab work on 01/23 includes a low sodium of 130, elevated potassium 5.2, elevated creatinine 1.5. He has been running elevated blood sugars with his blood sugar yesterday morning at 170 and prior blood sugars at higher levels I will reconsult Dr. Bradshaw to address his immediate complaints that are primarily related to his general health. We will continue to focus on stabilization and discharge planning. One question would be as to whether he may be re-experiencing in an emotional way some of the physical feelings he was having in weeks past when he was dealing with some of his cardiac issues. We will coordinate with Internal Medicine. MMODL / IJN: [id number] /
[2017-01-25] MEDS ORDERED: TRULICITY 1.5 MG/0.5 ML SQ SCH (09:00)
--- NOTE | 2017-01-26 16:28 | DS ---
DISCHARGE SUMMARY DATE OF SERVICE: 01/25/2017. DATE OF ADMISSION: 01/20/2017. DATE OF DISCHARGE: 01/24/2017. ADMISSION AND DISCHARGE DIAGNOSES: 1. Major depressive disorder, recurrent, severe. 2. Chest pain. HISTORY OF PRESENT ILLNESS: The patient was admitted for increasing problems with depression. He was sleeping excessively. He was socially withdrawn. He had loss of energy and motivation. He spent most of his time in bed. He had recent health issues including cardiac catheterization. MEDICAL HISTORY AND PHYSICAL EXAM: As per medical consultation of Dr. Bradshaw. Please refer to his consultation note 01/20/2017 for details. MENTAL STATUS EXAM: The patient had some psychomotor retardation. Speech was clear. Thought process and thought content unremarkable. Cognitive exam was clear. The patient was depressed. COURSE OF HOSPITALIZATION: The patient was admitted for comprehensive medical, psychiatric and psychosocial evaluation. We engaged the patient in individual and group therapeutic activities. On admission the patient was restarted on Zoloft 50 mg a day and Abilify 5 mg a day. He was seen by Dr. Schumacher on January 23. His Zoloft was increased to 150 mg a day. Abilify was increased to 10 mg a day. She noted that he previously was on Zoloft 200 mg a day and Abilify 15 mg a day. He was doing fairly well. His mood had improved. There was anticipation of discharge either Thursday or Thursday. January 25 the patient developed chest pain. He was evaluated by Dr. Chambers and was transferred to the medical floor for further evaluation. CONDITION AT DISCHARGE: Patient was stable from the standpoint of mood disorder. He was not having significant problems with depression. RECOMMENDATIONS AND FOLLOWUP: Patient is discharged to the medical floor under the care of Dr. Chambers. I saw the patient on January 25 for consultation. The patient was stable from the standpoint of psychiatric issues. There is a plan for the patient to be transferred back to the psychiatric unit to further assess his current situation from a psychiatric standpoint and to set up discharge planning which at this point has not been determined. BEATRIZ / TATIANA: [id number] /
== END 2017-01-24 17:00 | disposition short-term general hospital (02) | DRG 885 ==
LOC: EC 23:52 → 3MHU 01-20 02:59
PROVIDERS: ADMIT Psychiatry & Neurology Psychiatry; ATTEND Psychiatry & Neurology Psychiatry
DX: F33.2 Major depressive disorder, recurrent severe without psychotic features (principal); R45.851 Suicidal ideations; I50.22 Chronic systolic (congestive) heart failure; I11.0 Hypertensive heart disease with heart failure; I69.351 Hemiplegia and hemiparesis following cerebral infarction affecting right dominant side; E11.40 Type 2 diabetes mellitus with diabetic neuropathy, unspecified; E11.43 Type 2 diabetes mellitus with diabetic autonomic (poly)neuropathy; R07.9 Chest pain, unspecified; I25.2 Old myocardial infarction; I25.10 Atherosclerotic heart disease of native coronary artery without angina pectoris; I25.5 Ischemic cardiomyopathy; K21.9 Gastro-esophageal reflux disease without esophagitis; E78.5 Hyperlipidemia, unspecified; M19.91 Primary osteoarthritis, unspecified site; F43.10 Post-traumatic stress disorder, unspecified; G47.30 Sleep apnea, unspecified; K31.84 Gastroparesis; E11.65 Type 2 diabetes mellitus with hyperglycemia; G89.29 Other chronic pain; M54.9 Dorsalgia, unspecified; Z79.01 Long term (current) use of anticoagulants; Z79.84 Long term (current) use of oral hypoglycemic drugs; Z79.899 Other long term (current) drug therapy; Z91.5 Personal history of self-harm; Z86.14 Personal history of Methicillin resistant Staphylococcus aureus infection; Z90.49 Acquired absence of other specified parts of digestive tract; Z95.5 Presence of coronary angioplasty implant and graft; Z95.810 Presence of automatic (implantable) cardiac defibrillator; Z88.8 Allergy status to other drugs, medicaments and biological substances; Z88.1 Allergy status to other antibiotic agents; Z91.041 Radiographic dye allergy status; Z88.5 Allergy status to narcotic agent; Z88.0 Allergy status to penicillin; Z91.013 Allergy to seafood; Z91.14 Patient's other noncompliance with medication regimen
CPT/HCPCS: 80048; 80053; 80306; 81003; 82075; 83036; 84443; 85025; 93005; 99285

== ENCOUNTER 2017-01-24 15:56 | Inpatient (IN) | payer MEDICARE, OTHER ==
[2017-01-24 17:28] VITALS: BMI 40.3
--- NOTE | 2017-01-24 18:16 | P.HPIM ---
History of Present Illness H&P Date: 01/24/17 Chief Complaint: Chest pain This is a 41-year-old gentleman with history of CHF EF is around 25%. Patient has significant history of CAD status post multiple PCI/PTCA. Patient apparently recently underwent a cardiac catheterization patient tells me that he 's had an intervention done within the last 2 weeks at the another facility. Patient apparently was doing well he was seen in the mental health unit. He was admitted to the mental health unit for suicidal ideation. According to the staff patient currently was in good spirits however over the last 24 hours patient has been staying to be feeling weak thereafter started complaining of chest pain patient was given a nitroglycerin sublingual tablets which significant improvement during my evaluation patient states that he 7 chest pressure and tingling on the left side which did not exist at the time of admission to the psych unit A stat EKG was ordered I did review EKG no new changes were noted from the prior EKG and on admission Currently appears to be paced Labs were ordered this morning which did note an acute kidney injury this is new from on the day of admission Patient also states to have worsening chest pain with ambulation and tingling on his left arm hence I did advise the patient to be transferred to my service and admitted to the general medical floor with telemetry Patient is recommended to have a sitter at this time Patient received his medications this morning. Review of Systems All systems: negative (Noted in HPI) Past Medical History Past Medical History: Coronary Artery Disease (CAD), Chest Pain / Angina, Heart Failure, CVA/TIA, Diabetes Mellitus, GERD/Reflux, Hyperlipidemia, Hypertension, Myocardial Infarction ([place]), Osteoarthritis (OA), Pneumonia, Skin Disorder, Sleep Apnea/CPAP/BIPAP Additional Past Medical History / Comment(s): HX: Coronary artery disease with multiple vessel disease, ischemic cardiomyopathy, diabetic neuropathy bilateral hands and feet, hypertension hypertensive cardiovascular disease, chronic gastritis, chronic back pain, depression with hx of suicide attempts, GASTROPARESIS, PSORIASES,NIDDM type II. Last Myocardial Infarction Date:: 06/03/16 per pt. History of Any Multi-Drug Resistant Organisms: MRSA Date of last positivie culture/infection: 06/09/16 MDRO Source:: face Past Surgical History: AICD, Appendectomy, Cholecystectomy, Heart Catheterization With Stent, Hernia Repair Additional Past Surgical History / Comment(s): Pt has had multiple cardiac procedures-caths/PTCA/stenting with last stent place 2 weeks ago at 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 Past Anesthesia/Blood Transfusion Reactions: No Reported Reaction Additional Past Anesthesia/Blood Transfusion Reaction / Comment(s): . Date of Last Stent Placement:: 06/03/16 Type of Cardiac Device: Biventricular Pacemaker, AICD Device Placement Date:: 09/19/15 Past Psychological History: Anxiety, Depression, PTSD Additional Psychological History / Comment(s): Several suicide attempts with use of insulin. PTSD- IN 2000- HIS 3 MONTH OLD SON IN HIS ARMS(CHILD WAS BORN 2 MONTHS PREMATURE). Pt states his depression is stable at this time and does not have any suicidal thoughts or plans. He is independent. PT ON DISABILTY MULTIFACTORIAL PER PT. Smoking Status: Never smoker Past Alcohol Use History: Occasional Additional Past Alcohol Use History / Comment(s): pt states he stopped drinking six years ago. Past Drug Use History: Marijuana Additional Drug Use History / Comment(s): NONE IN 15 YEARS (past alcoholic, but drinks occassionally per pt), has smoked marijuana last smoked in 1999 - Past Family History Mother Family Medical History: Coronary Artery Disease (CAD), Myocardial Infarction ([place] ) Additional Family Medical History / Comment(s): 7 [place] and faulty heart valve. Pt does not know the age when mother had her MIs. Father History Unknown: Yes Additional Family Medical History / Comment(s): Does not know who father is Brother(s) Family Medical History: Congestive Heart Failure (CHF), Myocardial Infarction ( [place]) Additional Family Medical History / Comment(s): Parkinsons. Pt does not know at what age his brother had a [place] Patient has Family Medical History: No Reported History Additional Family Medical History / Comment(s): There is a strong family history for heart disease, hypertension, and diabetes. Medications and Allergies Home Medications Medication Instructions Recorded Confirmed Type Nitroglycerin Sl Tabs [Nitrostat] 0.4 mg SUBLINGUAL Q5M PRN 10/13/13 01/20/17 History Sertraline HCl [Zoloft] 200 mg PO DAILY 10/13/13 01/20/17 History Furosemide [Lasix] 40 mg PO DAILY 05/21/15 01/20/17 History metFORMIN HCL 1,000 mg PO BID 07/03/15 01/20/17 History Omeprazole [PriLOSEC] 40 mg PO HS 08/13/15 01/20/17 History Baclofen [Lioresal] 10 mg PO AC-TID PRN 01/13/16 01/20/17 History Dulaglutide [Trulicity] 1.5 mg SQ OROZCO 03/10/16 01/20/17 History Glimepiride 4 mg PO BID 03/10/16 01/20/17 History Rosuvastatin Calcium 40 mg PO HS 05/05/16 01/20/17 History Lisinopril [Zestril] 2.5 mg PO DAILY 06/01/16 01/20/17 History Gabapentin [Neurontin] 300 mg PO BID 06/09/16 01/20/17 History Ranolazine [Ranexa] 1,000 mg PO BID 06/09/16 01/20/17 History Primidone [Mysoline] 100 mg PO HS 06/30/16 01/20/17 History Prasugrel [Effient] 10 mg PO DAILY tab 07/01/16 01/20/17 Rx Loperamide [Imodium] 2 mg PO TID 10/20/16 01/20/17 History Metoprolol Tartrate 50 mg PO BID 10/20/16 01/20/17 History Aspirin EC [Ecotrin Low Dose] 81 mg PO DAILY 11/07/16 01/20/17 History Cholecalciferol (Vitamin D3) 2,000 unit PO DAILY 11/07/16 01/20/17 History [Vitamin D3] Linagliptin [Tradjenta] 5 mg PO HS 12/19/16 01/20/17 History Ranitidine HCl 150 mg PO DAILY 12/19/16 01/20/17 History ARIPiprazole [ARIPiprazole Odt] 15 mg PO HS 01/20/17 01/20/17 History Allergies Allergy/AdvReac Type Severity Reaction Status Date / Time erythromycin base Allergy Severe Swelling Verified 01/20/17 07:02 [Erythromycin Base] codeine Allergy Unknown Swelling Verified 01/20/17 07:02 meclizine Allergy Unknown Unknown Verified 01/20/17 07:02 Penicillins Allergy Unknown Rash/Hives Verified 01/20/17 07:02 shellfish derived Allergy Unknown Anaphylaxis Verified 01/20/17 07:02 Fish Containing Products Allergy Anaphylaxis Verified 01/20/17 07:02 [Fish] Iodinated Contrast- Oral and Allergy Anaphylaxis Verified 01/20/17 07:02 IV Dye cephalexin monohydrate AdvReac Unknown Nausea & Verified 01/20/17 07:02 [From Keflex] Vomiting naproxen AdvReac Unknown Compromises Verified 01/20/17 07:02 Kidney Function atorvastatin calcium AdvReac Myalgia Verified 01/20/17 07:02 [From Lipitor] hydrocodone [From [place]] AdvReac Rapid Verified 01/20/17 07:02 Heart Rate Physical Exam Vitals: Vital Signs Temp Pulse Resp BP Pulse Ox 01/24/17 17:18 97 F L 82 16 127/71 100 Intake and Output 01/24/17 01/24/17 01/24/17 06:59 14:59 22:59 Other: Weight 113.3 kg Patient Weight 01/25/17 06:59 Weight 113.3 kg Physical exam Gen. appearance oriented 3 in no distress Neck is supple no JVD Lungs good air entry clear to auscultation no rhonchi or wheezing Heart S1-S2 heard regular rate and rhythm no murmurs appreciated . AICD can be palpated , no reproducible chest pain Abdomen is soft nontender no organomegaly bowel sounds are intact Neurologically cranial nerves II-12 grossly intact no focal motor or sensory deficits noted Skin no abnormalities appreciated Thrombosis Risk Factor Assmnt - Choose All That Apply Any of the Below Risk Factors Present?: No Each Factor Represents 1 point: Age 41-60 years Other Risk Factors: No Other congenital or acquired thrombophilia - If yes, enter type in comment: No Thrombosis Risk Factor Assessment Total Risk Factor Score: 1 Thrombosis Risk Factor Assessment Level: Very Low Risk Assessment and Plan Plan: #1 chest pain rule out ACS this likely could be unstable angina in a patient with established CAD #2 acute kidney injury prerenal #3 diabetes mellitus type 2 #4 severe depression with suicidal ideation #5 essential hypertension. #6 congestive heart failure without any acute exacerbation Plan We'll admit the patient to our service. We'll have cardiology evaluate the patient serial cardiac enzymes If enzymes are negative and blood pressure is tolerable and need to consider addition of imdur However patient has multiple episodes similar to this underlying psychiatric issues is difficult to assess the severity of his symptoms as well. Hold off on Lasix and lisinopril will gently hydrate the patient overnight repeat renal function the morning fluids will be discontinued thereafter.
[2017-01-24] MEDS ORDERED: SODIUM CHLORIDE 0.9% 1,000 ML IV SCH (18:45)
[2017-01-24 20:09] LABS: Creatine Kinase MB 1.5 ng/mL (0.0-2.4); Troponin I <0.012 ng/mL (0.000-0.034)
[2017-01-24] MEDS: METOPROLOL TARTRATE 50 MG TAB PO SCH (20:14)
[2017-01-24] MEDS: ARIPiprazole 15 MG TAB PO SCH (20:14)
[2017-01-24] MEDS: GABAPENTIN 300 MG CAP PO SCH (20:14)
[2017-01-24] MEDS: PANTOPRAZOLE 40 MG TABLET PO SCH (20:15)
[2017-01-24] MEDS: RANOLAZINE 500 MG TAB.ER.12H PO SCH (20:15)
[2017-01-24] MEDS: NITROGLYCERIN SL TABS 0.4 MG TAB SUBLINGUAL PRN ×2 (20:20→20:29)
[2017-01-24] MEDS ORDERED: ROSUVASTATIN CALCIUM 40 MG PO SCH (21:00)
[2017-01-24 21:02] LABS: Glucose,Whole Blood 228 mg/dL (75-99)
[2017-01-25] MEDS: NITROGLYCERIN SL TABS 0.4 MG TAB SUBLINGUAL PRN ×2 (00:09→04:20)
[2017-01-25 00:57] LABS: Basophils # (A) 0.1 k/uL (0-0.2); Basophils % (A) 1 %; CH 27.4; CHCM 33.6; Eosinophils # (A) 0.2 k/uL (0-0.7); Eosinophils % (A) 4 %; HCT 36.3 % (39.0-53.0); HDW 3.18; HGB 11.9 gm/dL (13.0-17.5); Luc # (Auto) 0.11; Luc % (Auto) 2; Lymphocytes # (A) 1.7 k/uL (1.0-4.8); Lymphocytes % (A) 34 %; MCH 26.8 pg (25.0-35.0); MCHC 32.8 g/dL (31.0-37.0); MCV 81.6 fL (80.0-100.0); Mean Platelet Volume 7.4; Monocytes # (A) 0.2 k/uL (0-1.0); Monocytes % (A) 5 %; Neutrophils # (A) 2.7 k/uL (1.3-7.7); Neutrophils % (A) 55 %; RBC 4.45 m/uL (4.30-5.90); WBC (Perox) 5.18
[2017-01-25 01:10] LABS: ALT 32 U/L (21-72); AST 18 U/L (17-59); Alkaline Phosphatase 88 U/L (38-126); Anion Gap 10 mmol/L; Blood Urea Nitrogen 26 mg/dL (9-20); Calcium 9.1 mg/dL (8.4-10.2); Carbon Dioxide 22 mmol/L (22-30); Chloride 98 mmol/L (98-107); Glucose 197 mg/dL (74-99); Non-African American GFR(MDRD) >60 (>60 ml/min/1.73 sqM); Potassium 4.9 mmol/L (3.5-5.1); Sodium 130 mmol/L (137-145); Total Bilirubin 0.7 mg/dL (0.2-1.3); Total Protein 5.7 g/dL (6.3-8.2)
[2017-01-25] MEDS ORDERED: HYDROmorphone 1 MG/ML 1 ML SYRINGE IVP PRN (01:32)
[2017-01-25] MEDS ORDERED: BACLOFEN 10 MG TAB PO PRN (01:35)
[2017-01-25 01:41] LABS: Creatine Kinase MB 1.1 ng/mL (0.0-2.4); Troponin I <0.012 ng/mL (0.000-0.034)
[2017-01-25] MEDS: SODIUM CHLORIDE 0.9% 1,000 ML IV SCH ×2 (04:22→13:42)
[2017-01-25 06:22] LABS: Glucose,Whole Blood 148 mg/dL (75-99)
[2017-01-25 06:51] LABS: Basophils # (A) 0.1 k/uL (0-0.2); Basophils % (A) 1 %; CH 27.4; CHCM 33.8; Eosinophils # (A) 0.2 k/uL (0-0.7); Eosinophils % (A) 4 %; HCT 38.6 % (39.0-53.0); HGB 12.5 gm/dL (13.0-17.5); Luc # (Auto) 0.12; Luc % (Auto) 2; Lymphocytes # (A) 1.6 k/uL (1.0-4.8); Lymphocytes % (A) 32 %; MCH 26.4 pg (25.0-35.0); MCHC 32.5 g/dL (31.0-37.0); MCV 81.2 fL (80.0-100.0); Mean Platelet Volume 7.4; Monocytes # (A) 0.3 k/uL (0-1.0); Monocytes % (A) 5 %; Neutrophils # (A) 2.8 k/uL (1.3-7.7); Neutrophils % (A) 55 %; RBC 4.76 m/uL (4.30-5.90); RDW 15.1 % (11.5-15.5); WBC 5.1 k/uL (3.8-10.6); WBC (Perox) 5.53
[2017-01-25 07:16] LABS: ALT 34 U/L (21-72); AST 18 U/L (17-59); Alkaline Phosphatase 84 U/L (38-126); Anion Gap 10 mmol/L; Blood Urea Nitrogen 24 mg/dL (9-20); Calcium 9.2 mg/dL (8.4-10.2); Carbon Dioxide 24 mmol/L (22-30); Chloride 103 mmol/L (98-107); Glucose 151 mg/dL (74-99); Non-African American GFR(MDRD) >60 (>60 ml/min/1.73 sqM); Potassium 4.8 mmol/L (3.5-5.1); Sodium 137 mmol/L (137-145); Total Bilirubin 0.6 mg/dL (0.2-1.3)
[2017-01-25 07:49] LABS: Troponin I <0.012 ng/mL (0.000-0.034)
[2017-01-25] MEDS ORDERED: PRASUGREL 10 MG TAB PO SCH (09:00)
[2017-01-25] MEDS ORDERED: ASPIRIN 81 MG CHEW PO SCH (09:00)
[2017-01-25] MEDS ORDERED: SERTRALINE 100 MG TAB PO SCH (09:00)
[2017-01-25 11:42] LABS: Glucose,Whole Blood 245 mg/dL (75-99)
[2017-01-25] MEDS: METOPROLOL TARTRATE 50 MG TAB PO SCH ×2 (11:53→20:44)
[2017-01-25] MEDS: GABAPENTIN 300 MG CAP PO SCH ×2 (11:53→20:44)
[2017-01-25] MEDS: RANOLAZINE 500 MG TAB.ER.12H PO SCH ×2 (11:54→20:45)
--- NOTE | 2017-01-25 14:54 | P.CRDCN ---
History of Present Illness History of present illness: 41-year-old male patient with known or any artery disease with a long-standing history of noncompliance with medical treatment, past history of uncontrolled diabetes, history of obesity rather morbid obesity states that he did not take his medications for 2 weeks and then started experiencing some chest discomfort. His cardiac enzymes are normal he has a paced rhythm 3 cardiac enzymes are normal He is sitting comfortably in bed watching television. No respiratory distress Examination is normal heart sounds S1 and S2 normal Breath sounds are normal Abdomen is soft nontender Blood pressure 119/72 mmHg respirations 16 pulse rate 77 beats a minute afebrile Impression Patient transferred to sixth floor yet again with chest discomfort Long-standing history of recurrent chest discomfort Known coronary artery disease status post multiple stents Ischemic cardio myopathy status post ICD in [place] Follows with a restaurant area manager now in [place] Adult-onset diabetes Morbid obesity Long-standing history of noncompliance with most medical recommendations given, other than when coronary angiography was recommended ICD implanted Plan Continue antiplatelet therapy dual Continue Ranexa Statins, continue No need for fluids Kwabena inhibitors, continue No indication for any cardiac workup at this point. If he needs further cardiac workup patient may be transferred to the care of his restaurant area manager in [place] and he is stable from a medical standpoint to be transferred at this point In the interim he will be transferred to the psychiatry floor Past Medical History Past Medical History: Coronary Artery Disease (CAD), Chest Pain / Angina, Heart Failure, CVA/TIA, Diabetes Mellitus, GERD/Reflux, Hyperlipidemia, Hypertension, Myocardial Infarction ([place]), Osteoarthritis (OA), Pneumonia, Skin Disorder, Sleep Apnea/CPAP/BIPAP Additional Past Medical History / Comment(s): HX: Coronary artery disease with multiple vessel disease, ischemic cardiomyopathy, diabetic neuropathy bilateral hands and feet, hypertension hypertensive cardiovascular disease, chronic gastritis, chronic back pain, depression with hx of suicide attempts, GASTROPARESIS, PSORIASES,NIDDM type II. Last Myocardial Infarction Date:: 06/03/16 per pt. 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 Past Anesthesia/Blood Transfusion Reactions: No Reported Reaction Additional Past Anesthesia/Blood Transfusion Reaction / Comment(s): . Date of Last Stent Placement:: 06/03/16 Type of Cardiac Device: Biventricular Pacemaker, AICD Device Placement Date:: 09/19/15 Past Psychological History: Anxiety, Depression, PTSD Additional Psychological History / Comment(s): Several suicide attempts with use of insulin. PTSD- IN 2000- HIS 3 MONTH OLD SON IN HIS ARMS(CHILD WAS BORN 2 MONTHS PREMATURE). Pt states his depression is stable at this time and does not have any suicidal thoughts or plans. He is independent. PT ON DISABILTY MULTIFACTORIAL PER PT. Smoking Status: Never smoker Past Alcohol Use History: Occasional Additional Past Alcohol Use History / Comment(s): pt states he stopped drinking six years ago. Past Drug Use History: Marijuana Additional Drug Use History / Comment(s): NONE IN 15 YEARS (past alcoholic, but drinks occassionally per pt), has smoked marijuana last smoked in 1999 - Past Family History Mother Family Medical History: Coronary Artery Disease (CAD), Myocardial Infarction ([place] ) Additional Family Medical History / Comment(s): 7 [place] and faulty heart valve. Pt does not know the age when mother had her MIs. Father History Unknown: Yes Additional Family Medical History / Comment(s): Does not know who father is Brother(s) Family Medical History: Congestive Heart Failure (CHF), Myocardial Infarction ( [place]) Additional Family Medical History / Comment(s): Parkinsons. Pt does not know at what age his brother had a [place] Patient has Family Medical History: No Reported History Additional Family Medical History / Comment(s): There is a strong family history for heart disease, hypertension, and diabetes. Medications and Allergies Home Medications Medication Instructions Recorded Confirmed Type Nitroglycerin Sl Tabs [Nitrostat] 0.4 mg SUBLINGUAL Q5M PRN 10/13/13 01/24/17 History Sertraline HCl [Zoloft] 200 mg PO DAILY 10/13/13 01/24/17 History Furosemide [Lasix] 40 mg PO DAILY 05/21/15 01/24/17 History metFORMIN HCL 1,000 mg PO BID 07/03/15 01/24/17 History Omeprazole [PriLOSEC] 40 mg PO HS 08/13/15 01/24/17 History Baclofen [Lioresal] 10 mg PO AC-TID PRN 01/13/16 01/24/17 History Dulaglutide [Trulicity] 1.5 mg SQ OROZCO 03/10/16 01/24/17 History Glimepiride 4 mg PO BID 03/10/16 01/24/17 History Rosuvastatin Calcium 40 mg PO HS 05/05/16 01/24/17 History Lisinopril [Zestril] 2.5 mg PO DAILY 06/01/16 01/24/17 History Gabapentin [Neurontin] 300 mg PO BID 06/09/16 01/24/17 History Ranolazine [Ranexa] 1,000 mg PO BID 06/09/16 01/24/17 History Primidone [Mysoline] 100 mg PO HS 06/30/16 01/24/17 History Prasugrel [Effient] 10 mg PO DAILY tab 07/01/16 01/24/17 Rx Loperamide [Imodium] 2 mg PO TID 10/20/16 01/24/17 History Metoprolol Tartrate 50 mg PO BID 10/20/16 01/24/17 History Aspirin EC [Ecotrin Low Dose] 81 mg PO DAILY 11/07/16 01/24/17 History Cholecalciferol (Vitamin D3) 2,000 unit PO DAILY 11/07/16 01/24/17 History [Vitamin D3] Linagliptin [Tradjenta] 5 mg PO HS 12/19/16 01/24/17 History Ranitidine HCl 150 mg PO DAILY 12/19/16 01/24/17 History ARIPiprazole [ARIPiprazole Odt] 15 mg PO HS 01/20/17 01/24/17 History Allergies Allergy/AdvReac Type Severity Reaction Status Date / Time erythromycin base Allergy Severe Swelling Verified 01/20/17 07:02 [Erythromycin Base] codeine Allergy Unknown Swelling Verified 01/20/17 07:02 meclizine Allergy Unknown Unknown Verified 01/20/17 07:02 Penicillins Allergy Unknown Rash/Hives Verified 01/20/17 07:02 shellfish derived Allergy Unknown Anaphylaxis Verified 01/20/17 07:02 Fish Containing Products Allergy Anaphylaxis Verified 01/20/17 07:02 [Fish] Iodinated Contrast- Oral and Allergy Anaphylaxis Verified 01/20/17 07:02 IV Dye cephalexin monohydrate AdvReac Unknown Nausea & Verified 01/20/17 07:02 [From Keflex] Vomiting naproxen AdvReac Unknown Compromises Verified 01/20/17 07:02 Kidney Function atorvastatin calcium AdvReac Myalgia Verified 01/20/17 07:02 [From Lipitor] hydrocodone [From [place]] AdvReac Rapid Verified 01/20/17 07:02 Heart Rate Physical Exam Vitals: Vital Signs Temp Pulse Pulse Pulse Pulse Resp BP 01/25/17 11:57 77 16 01/25/17 11:50 16 01/25/17 08:40 16 01/25/17 08:00 96.8 F L 85 95 77 16 01/25/17 04:00 83 18 01/25/17 03:56 97 F L 83 18 104/50 01/25/17 00:00 98.5 F 86 19 118/59 01/24/17 20:31 102/63 01/24/17 20:28 105/57 01/24/17 20:00 97.1 F L 85 17 126/64 01/24/17 17:18 97 F L 82 16 127/71 BP BP BP Pulse Ox 01/25/17 11:57 119/72 99 01/25/17 11:50 01/25/17 08:40 01/25/17 08:00 108/71 116/75 128/75 97 01/25/17 04:00 01/25/17 03:56 97 01/25/17 00:00 99 01/24/17 20:31 01/24/17 20:28 01/24/17 20:00 96 01/24/17 17:18 100 Intake and Output 01/24/17 01/25/17 01/25/17 22:59 06:59 14:59 Intake Total 240 236 Output Total 200 Balance 240 -200 236 Intake: Oral 240 236 Output: Urine 200 Other: Voiding Method Toilet Toilet Toilet # Voids 1 1 1 Weight 113.3 kg 113.1 kg Results 01/25/17 06:09 01/25/17 06:09 Cardiac Enzymes 01/24/17 01/25/17 01/25/17 Range/Units 19:01 00:40 00:40 AST 18 (17-59) U/L CK-MB (CK-2) 1.5 1.1 (0.0-2.4) ng/mL Troponin I <0.012 <0.012 (0.000-0.034) ng/mL 01/25/17 01/25/17 Range/Units 06:09 06:09 AST 18 (17-59) U/L CK-MB (CK-2) 1.0 (0.0-2.4) ng/mL Troponin I <0.012 (0.000-0.034) ng/mL CBC 01/25/17 01/25/17 Range/Units 00:40 06:09 WBC 5.0 5.1 (3.8-10.6) k/uL RBC 4.45 4.76 (4.30-5.90) m/uL Hgb 11.9 L 12.5 L (13.0-17.5) gm/dL Hct 36.3 L 38.6 L (39.0-53.0) % Plt Count 218 218 (150-450) k/uL Comprehensive Metabolic Panel 01/25/17 01/25/17 Range/Units 00:40 06:09 Sodium 130 L 137 (137-145) mmol/L Potassium 4.9 4.8 (3.5-5.1) mmol/L Chloride 98 103 (98-107) mmol/L Carbon Dioxide 22 24 (22-30) mmol/L BUN 26 H 24 H (9-20) mg/dL Creatinine 1.30 H 1.19 (0.66-1.25) mg/dL Glucose 197 H 151 H (74-99) mg/dL Calcium 9.1 9.2 (8.4-10.2) mg/dL AST 18 18 (17-59) U/L ALT 32 34 (21-72) U/L Alkaline Phosphatase 88 84 (38-126) U/L Total Protein 5.7 L 6.0 L (6.3-8.2) g/dL Albumin 3.5 3.7 (3.5-5.0) g/dL Current Medications Generic Name Dose Route Start Last Admin Trade Name Freq PRN Reason Stop Dose Admin Aripiprazole 15 mg 01/24/17 21:00 01/24/17 20:14 Abilify PO 15 mg HS JAKE Administration Aspirin 81 mg 01/25/17 09:00 01/25/17 11:52 Aspirin PO 81 mg DAILY JAKE Administration Baclofen 10 mg 01/25/17 01:35 Lioresal PO TID PRN Muscle Spasm Gabapentin 300 mg 01/24/17 21:00 01/25/17 11:53 Neurontin PO 300 mg BID JAKE Administration Hydromorphone HCl 0.5 mg 01/25/17 01:32 01/25/17 04:34 Dilaudid IVP 0.5 mg Q6HR PRN Administration Pain Lisinopril 5 mg 01/26/17 09:00 Zestril PO DAILY [facility] Metoprolol Tartrate 50 mg 01/24/17 21:00 01/25/17 11:53 Lopressor PO 50 mg BID [facility] Administration Nitroglycerin 0.4 mg 01/24/17 18:42 01/25/17 04:20 Nitrostat SUBLINGUAL 0.4 mg Q5M PRN Administration Chest Pain Trulicity 1.5 mg 01/25/17 18:00 SQ OROZCO [facility] Non-Formulary Medication 40 mg 01/24/17 21:00 Rosuvastatin Calcium [Rosuvastatin Calcium] PO HS JAKE Pantoprazole Sodium 40 mg 01/24/17 21:00 01/24/17 20:15 Protonix PO 40 mg HS JAKE Administration Prasugrel 10 mg 01/25/17 09:00 01/25/17 11:53 Effient PO 10 mg DAILY JAKE Administration Ranolazine 1,000 mg 01/24/17 21:00 01/25/17 11:54 Ranexa PO 1,000 mg BID [facility] Administration Sertraline HCl 200 mg 01/25/17 09:00 01/25/17 11:54 Zoloft PO 200 mg DAILY [facility] Administration Intake and Output 01/24/17 01/25/17 01/25/17 22:59 06:59 14:59 Intake Total 240 236 Output Total 200 Balance 240 -200 236 Intake: Oral 240 236 Output: Urine 200 Other: Voiding Method Toilet Toilet Toilet # Voids 1 1 1 Weight 113.3 kg 113.1 kg 01/25/17 06:09 01/25/17 06:09
--- NOTE | 2017-01-25 15:41 | P.DS ---
Providers Date of admission: 01/24/17 17:12 Attending physician: Davon Chambers MD Consults: 01/24/17 18:40 Consult Physician Routine Consulting Provider: Rabia Schumacher Consult Reason/Comments: depression/transfer from [facility] Do you want consulting provider notified?: Yes 01/24/17 18:41 Consult Physician Routine Consulting Provider: Ray Kang Consult Reason/Comments: Chest pain Do you want consulting provider notified?: Yes 01/25/17 09:32 Consult Physician Routine Consulting Provider: Michael Trivedi Consult Reason/Comments: return to psych, cardio cleared Do you want consulting provider notified?: Already Contacted Primary care physician: Stated None Hospital Course: This is a 41-year-old gentleman with history of CHF EF is around 25%. Patient has significant history of CAD status post multiple PCI/PTCA. Patient apparently recently underwent a cardiac catheterization patient tells me that he 's had an intervention done within the last 2 weeks at the another facility. Patient apparently was doing well he was seen in the mental health unit. He was admitted to the mental health unit for suicidal ideation. According to the staff patient currently was in good spirits however over the last 24 hours patient has been staying to be feeling weak thereafter started complaining of chest pain patient was given a nitroglycerin sublingual tablets which significant improvement during my evaluation patient states that he 7 chest pressure and tingling on the left side which did not exist at the time of admission to the psych unit A stat EKG was ordered I did review EKG no new changes were noted from the prior EKG and on admission Currently appears to be paced Labs were ordered this morning which did note an acute kidney injury this is new from on the day of admission Patient also states to have worsening chest pain with ambulation and tingling on his left arm hence I did advise the patient to be transferred to my service and admitted to the general medical floor with telemetry Patient is recommended to have a sitter at this time Patient received his medications this morning. 01/25 2017 States to be doing significantly better denies having any chest pain was able to family without much difficulty Denies having any suicidal or homicidal ideation sitter bedside This is on the day of discharge. Physical exam Gen. appearance oriented 3 in no distress Neck is supple no JVD Lungs good air entry clear to auscultation no rhonchi or wheezing Heart S1-S2 heard regular rate and rhythm no murmurs appreciated . AICD can be palpated , no reproducible chest pain Abdomen is soft nontender no organomegaly bowel sounds are intact Neurologically cranial nerves II-12 grossly intact no focal motor or sensory deficits noted Skin no abnormalities appreciated Plan: #1 chest pain rule out ACS this likely could be unstable angina in a patient with established CAD #2 acute kidney injury prerenal #3 diabetes mellitus type 2 #4 severe depression with suicidal ideation #5 essential hypertension. #6 congestive heart failure without any acute exacerbation Enzymes 3 were negative Patient's chest pain is resolved We'll hold Lasix for the next day or 2 renal functions also significantly improved Charge back to psych facility. Plan - Discharge Summary New Discharge Prescriptions: Continue Sertraline HCl [Zoloft] 200 mg PO DAILY Nitroglycerin Sl Tabs [Nitrostat] 0.4 mg SUBLINGUAL Q5M PRN PRN Reason: Angina metFORMIN HCL 1,000 mg PO BID Omeprazole [PriLOSEC] 40 mg PO HS Baclofen [Lioresal] 10 mg PO AC-TID PRN PRN Reason: Pain Glimepiride 4 mg PO BID Dulaglutide [Trulicity] 1.5 mg SQ OROZCO Rosuvastatin Calcium 40 mg PO HS Lisinopril [Zestril] 2.5 mg PO DAILY Ranolazine [Ranexa] 1,000 mg PO BID Gabapentin [Neurontin] 300 mg PO BID Primidone [Mysoline] 100 mg PO HS Prasugrel [Effient] 10 mg PO DAILY tab Metoprolol Tartrate 50 mg PO BID Loperamide [Imodium] 2 mg PO TID Aspirin EC [Ecotrin Low Dose] 81 mg PO DAILY Cholecalciferol (Vitamin D3) [Vitamin D3] 2,000 unit PO DAILY Ranitidine HCl 150 mg PO DAILY Linagliptin [Tradjenta] 5 mg PO HS ARIPiprazole [ARIPiprazole Odt] 15 mg PO HS Discontinued Furosemide [Lasix] 40 mg PO DAILY Discharge Medication List Nitroglycerin Sl Tabs [Nitrostat] 0.4 mg SUBLINGUAL Q5M PRN 10/13/13 [History] Sertraline HCl [Zoloft] 200 mg PO DAILY 10/13/13 [History] metFORMIN HCL 1,000 mg PO BID 07/03/15 [History] Omeprazole [PriLOSEC] 40 mg PO HS 08/13/15 [History] Baclofen [Lioresal] 10 mg PO AC-TID PRN 01/13/16 [History] Dulaglutide [Trulicity] 1.5 mg SQ OROZCO 03/10/16 [History] Glimepiride 4 mg PO BID 03/10/16 [History] Rosuvastatin Calcium 40 mg PO HS 05/05/16 [History] Lisinopril [Zestril] 2.5 mg PO DAILY 06/01/16 [History] Gabapentin [Neurontin] 300 mg PO BID 06/09/16 [History] Ranolazine [Ranexa] 1,000 mg PO BID 06/09/16 [History] Primidone [Mysoline] 100 mg PO HS 06/30/16 [History] Prasugrel [Effient] 10 mg PO DAILY tab 07/01/16 [Rx] Loperamide [Imodium] 2 mg PO TID 10/20/16 [History] Metoprolol Tartrate 50 mg PO BID 10/20/16 [History] Aspirin EC [Ecotrin Low Dose] 81 mg PO DAILY 11/07/16 [History] Cholecalciferol (Vitamin D3) [Vitamin D3] 2,000 unit PO DAILY 11/07/16 [History] Linagliptin [Tradjenta] 5 mg PO HS 12/19/16 [History] Ranitidine HCl 150 mg PO DAILY 12/19/16 [History] ARIPiprazole [ARIPiprazole Odt] 15 mg PO HS 01/20/17 [History] Discharge Disposition: TRANSFER TO PSYCH HOSP/UNIT
[2017-01-25 16:18] LABS: Glucose,Whole Blood 219 mg/dL (75-99)
[2017-01-25] MEDS ORDERED: TRULICITY SQ SCH (18:00)
[2017-01-25 20:27] VITALS: BP 134/61; RESP 18; TEMP 97.1
[2017-01-25 20:36] LABS: Glucose,Whole Blood 199 mg/dL (75-99)
[2017-01-25] MEDS: PANTOPRAZOLE 40 MG TABLET PO SCH (20:44)
[2017-01-25] MEDS: ARIPiprazole 15 MG TAB PO SCH (20:44)
[2017-01-25 22:31] VITALS: PULSE 77
[2017-01-26] MEDS ORDERED: LISINOPRIL 5 MG TAB PO SCH (09:00)
[2017-01-28 08:37] LABS: Glucose,Whole Blood 172 mg/dL (75-99)
== END 2017-01-25 22:30 | DRG 313 ==
LOC: 6SEL 17:12
PROVIDERS: ADMIT Internal Medicine; ATTEND Internal Medicine
DX: R07.9 Chest pain, unspecified (principal); I25.2 Old myocardial infarction; R45.851 Suicidal ideations; K31.84 Gastroparesis; I11.0 Hypertensive heart disease with heart failure; Z68.41 Body mass index [BMI] 40.0-44.9, adult; E66.01 Morbid (severe) obesity due to excess calories; E11.43 Type 2 diabetes mellitus with diabetic autonomic (poly)neuropathy; I50.9 Heart failure, unspecified; I25.10 Atherosclerotic heart disease of native coronary artery without angina pectoris; F32.9 Major depressive disorder, single episode, unspecified; E78.5 Hyperlipidemia, unspecified; F43.10 Post-traumatic stress disorder, unspecified; G47.30 Sleep apnea, unspecified; G89.29 Other chronic pain; M54.9 Dorsalgia, unspecified; I25.5 Ischemic cardiomyopathy; M19.91 Primary osteoarthritis, unspecified site; K21.9 Gastro-esophageal reflux disease without esophagitis; Z79.02 Long term (current) use of antithrombotics/antiplatelets; Z79.82 Long term (current) use of aspirin; Z79.84 Long term (current) use of oral hypoglycemic drugs; Z79.899 Other long term (current) drug therapy; Z95.5 Presence of coronary angioplasty implant and graft; Z86.14 Personal history of Methicillin resistant Staphylococcus aureus infection; Z95.810 Presence of automatic (implantable) cardiac defibrillator; Z91.5 Personal history of self-harm; Z91.19 Patient's noncompliance with other medical treatment and regimen; Z86.73 Personal history of transient ischemic attack (TIA), and cerebral infarction without residual deficits; Z82.49 Family history of ischemic heart disease and other diseases of the circulatory system
CPT/HCPCS: 80053; 82553; 84484; 85025

== ENCOUNTER 2017-01-25 21:04 | Inpatient (IN) | payer MEDICARE, MEDICAID ==
[2017-01-25] MEDS ORDERED: NITROGLYCERIN SL TABS 0.4 MG TAB SUBLINGUAL PRN (22:08)
[2017-01-25] MEDS ORDERED: NON-FORMULARY DRUG (Dulaglutide [Trulicity] 1.5 MG) SQ SCH (22:15)
[2017-01-26 07:17] LABS: Glucose,Whole Blood 276 mg/dL (75-99)
[2017-01-26] MEDS: LOPERAMIDE 2 MG CAP PO SCH ×3 (08:57→21:54)
[2017-01-26] MEDS: GABAPENTIN 300 MG CAP PO SCH ×2 (08:57→20:46)
[2017-01-26] MEDS: CHOLECALCIFEROL 1,000 UNIT TAB PO SCH (08:57)
[2017-01-26] MEDS: SERTRALINE 100 MG TAB PO SCH (08:57)
[2017-01-26] MEDS: METOPROLOL TARTRATE 50 MG TAB PO SCH ×2 (08:58→20:46)
[2017-01-26] MEDS: PRASUGREL 10 MG TAB PO SCH (08:58)
[2017-01-26] MEDS: ASPIRIN 81 MG CHEW PO SCH (08:58)
[2017-01-26] MEDS: GLIMEPIRIDE 4 MG TAB PO SCH ×2 (08:58→20:47)
[2017-01-26] MEDS: FAMOTIDINE 20 MG TAB PO SCH (08:59)
[2017-01-26] MEDS: LISINOPRIL 2.5 MG TAB PO SCH (08:59)
[2017-01-26] MEDS: RANOLAZINE 500 MG TAB.ER.12H PO SCH ×2 (08:59→20:46)
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
[2017-01-26 12:02] LABS: Glucose,Whole Blood 152 mg/dL (75-99)
[2017-01-26] MEDS: BACLOFEN 10 MG TAB PO PRN ×2 (14:35→21:54)
[2017-01-26 17:31] LABS: Glucose,Whole Blood 201 mg/dL (75-99)
[2017-01-26 20:16] LABS: Glucose,Whole Blood 205 mg/dL (75-99)
[2017-01-26] MEDS ORDERED: LINAGLIPTIN 5 MG TABLET PO SCH (21:00)
[2017-01-26] MEDS ORDERED: PANTOPRAZOLE 40 MG TABLET PO SCH (21:00)
[2017-01-26] MEDS ORDERED: PRIMIDONE 50 MG TAB PO SCH (21:00)
[2017-01-26] MEDS ORDERED: ROSUVASTATIN CALCIUM 40 MG PO SCH (21:00)
[2017-01-26] MEDS ORDERED: ARIPiprazole 15 MG TAB PO SCH (21:00)
[2017-01-26] MEDS: INSULIN LISPRO (humaLOG) 300 UNIT/3 ML VIAL SQ SCH (21:21)
[2017-01-27 05:54] LABS: Glucose,Whole Blood 71 mg/dL (75-99)
[2017-01-27 06:46] VITALS: TEMP 97.7
[2017-01-27] MEDS: SERTRALINE 100 MG TAB PO SCH (08:37)
[2017-01-27] MEDS: RANOLAZINE 500 MG TAB.ER.12H PO SCH (08:37)
[2017-01-27] MEDS: INSULIN LISPRO (humaLOG) 300 UNIT/3 ML VIAL SQ SCH (08:37)
[2017-01-27] MEDS: PRASUGREL 10 MG TAB PO SCH (08:38)
[2017-01-27] MEDS: LISINOPRIL 2.5 MG TAB PO SCH ×2 (08:38→09:45)
[2017-01-27] MEDS: CHOLECALCIFEROL 1,000 UNIT TAB PO SCH (08:38)
[2017-01-27] MEDS: FAMOTIDINE 20 MG TAB PO SCH (08:38)
[2017-01-27] MEDS: METOPROLOL TARTRATE 50 MG TAB PO SCH (08:38)
[2017-01-27] MEDS: LOPERAMIDE 2 MG CAP PO SCH (08:38)
[2017-01-27] MEDS: GABAPENTIN 300 MG CAP PO SCH (08:38)
[2017-01-27] MEDS: ASPIRIN 81 MG CHEW PO SCH (08:38)
[2017-01-27] MEDS: GLIMEPIRIDE 4 MG TAB PO SCH (08:39)
--- NOTE | 2017-01-27 08:42 | P.DS ---
Providers Date of admission: 01/25/17 21:37 Expected date of discharge: 01/27/17 Attending physician: Rabia Schumacher MD Primary care physician: Junie [facility] Course: Discharge Diagnoses: Major depressive disorder, recurrent, severe Reason for Admission: Patient is a 41-year-old male who presented to the emergency room reporting increasing depression and suicidal ideation, patient reports that he had been not taking his medication for the last 2 weeks. Patient had lost his job after a hospitalization to have another stent placed and when he was discharged the [employer] told him that he could no longer work for them due to his medical conditions. In response to this the patient discontinued all of his medications and his depression slowly increased, he was not eating correctly, not sleeping well, not caring for his personal hygiene and was spending the bulk of the day in bed. Patient also started to have suicidal ideation and reported that he wanted to but had no plans. Patient states that he was more socially withdrawn and was not interacting with his family. Patient had been prescribed his psychiatric medications by his primary care physician as he stopped attending [facility] about 5 months prior to this. Patient has had several hospitalizations the first in 2001 the patient had attempted suicide several times in the past with insulin and so he is no longer prescribed insulin to control his diabetes. Patient has multiple medical problems that he was also not addressing prior to his admission. Patient had been prescribed Abilify 15 mg a day and Zoloft 200 mg a day to target his depression. Hospital Course: Patient was admitted on a voluntary basis and routine laboratory studies were performed as well as a medical consultation. Patient was restarted on all of his prior medical medications and his psychiatric meds were slowly restarted and titrated back to their prior doses. Patient was placed on routine precautions and group and activity therapy were also ordered. Patient slowly began to improve and reported that he was feeling better. Patient several days prior to his discharge began reporting that he was feeling tired and had no energy and was evaluated by the medical territory manager and transferred to the medical floor where his Lasix was discontinued and he was given IV fluids and it was felt that this was secondary to dehydration. Patient was then transferred back to the psychiatric unit and he continued on his Abilify and Zoloft and all of his prior medical medications except for Lasix. Patient was attending groups and activities and felt they were helpful and he was participating in them. Patient reported that after he was rehydrated his energy level improved and he was no longer feeling tired and fatigued. Patient reported his sleep improved and he was no longer having any suicidal ideation and states his depression was slowly lifting. Patient reported no side effects from the medications and his Abilify was increased to 15 mg and his Zoloft to 200 mg with good results. Patient's diabetes was fairly well-controlled in the hospital and the patient reports that he will follow-up with his primary care doctor regarding further assistance with his diet at home. 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 Patient felt that he was feeling better both mentally and physically than he had been several months ago when he was taking his medications and felt he was ready for discharge. Discharge Mental Status:Appearance/Attitude: Patient is appropriately dressed, makes good eye contact and is cooperative. Behavior: Patient displays no psychomotor agitation or retardation. Speech/Language: Patient's speech is spontaneous and of normal volume and rhythm and he is coherent. Thought Process: Patient is goal-directed, he is no evidence of circumstantial or tangential thought and no evidence of loose associations or flight of ideas. Thought Content: Patient denies any auditory or visual hallucinations and no delusions or paranoid ideation were elicited. Patient states that he is thinking about the future as well as his health and planning to not return to work immediately but focused on improving his health. Patient reports that he is sleeping and eating well. Patient states that he is not feeling fatigued or tired but states that he is feeling better physically than he was several months ago. Suicidal/Homicidal Ideation: Patient denies any suicidal or homicidal ideation at this time. Sensorium/Cognition: Patient is alert and oriented to person, place, and time and his memory is grossly intact. Mood/Affect: Patient's mood is less depressed and his affect is brighter. Insight/Judgement: Patient's insight and judgment are fair. Laboratory Last Values POC Glucose (mg/dL) 71 mg/dL (75-99) L 01/27/17 05:51 POC Glu [employer] ID Erica Pimentel 01/27/17 05:51 Risk Assessment: Patient remains at moderate risk due to his prior suicide attempts, recent lack of compliance with medication but is interested in being compliant in following up at [facility] Discharge Plan: Patient will return home to live with his , he will follow- up at [facility] for both medication management and therapy. Patient will be continued on Abilify 15 mg and Zoloft 200 mg he was given prescriptions for these medications. Patient was encouraged to follow-up with his primary care doctor within the next several days to discuss the change to his medications. Patient was encouraged to follow his diabetic diet as well as consider exercising. Patient was encouraged to remain compliant with his medications and follow-up with [facility]. Patient will continue on all of his prior medications for his medical problems except for Lasix and he reports that he has sufficient of these medications at home and no prescriptions will be given for these. Patient Condition at Discharge: Stable Plan - Discharge Summary New Discharge Prescriptions: New ARIPiprazole [Abilify] 15 mg PO HS #14 tab Continue Nitroglycerin Sl Tabs [Nitrostat] 0.4 mg SUBLINGUAL Q5M PRN PRN Reason: Angina metFORMIN HCL 1,000 mg PO BID Omeprazole [PriLOSEC] 40 mg PO HS Baclofen [Lioresal] 10 mg PO AC-TID PRN PRN Reason: Pain Glimepiride 4 mg PO BID Dulaglutide [Trulicity] 1.5 mg SQ OROZCO Rosuvastatin Calcium 40 mg PO HS Lisinopril [Zestril] 2.5 mg PO DAILY Ranolazine [Ranexa] 1,000 mg PO BID Gabapentin [Neurontin] 300 mg PO BID Primidone [Mysoline] 100 mg PO HS Prasugrel [Effient] 10 mg PO DAILY tab Metoprolol Tartrate 50 mg PO BID Loperamide [Imodium] 2 mg PO TID Aspirin EC [Ecotrin Low Dose] 81 mg PO DAILY Cholecalciferol (Vitamin D3) [Vitamin D3] 2,000 unit PO DAILY Ranitidine HCl 150 mg PO DAILY Linagliptin [Tradjenta] 5 mg PO HS Sertraline HCl [Zoloft] 200 mg PO DAILY #28 Discontinued ARIPiprazole [ARIPiprazole Odt] 15 mg PO HS Discharge Medication List Nitroglycerin Sl Tabs [Nitrostat] 0.4 mg SUBLINGUAL Q5M PRN 10/13/13 [History] metFORMIN HCL 1,000 mg PO BID 07/03/15 [History] Omeprazole [PriLOSEC] 40 mg PO HS 08/13/15 [History] Baclofen [Lioresal] 10 mg PO AC-TID PRN 01/13/16 [History] Dulaglutide [Trulicity] 1.5 mg SQ OROZCO 03/10/16 [History] Glimepiride 4 mg PO BID 03/10/16 [History] Rosuvastatin Calcium 40 mg PO HS 05/05/16 [History] Lisinopril [Zestril] 2.5 mg PO DAILY 06/01/16 [History] Gabapentin [Neurontin] 300 mg PO BID 06/09/16 [History] Ranolazine [Ranexa] 1,000 mg PO BID 06/09/16 [History] Primidone [Mysoline] 100 mg PO HS 06/30/16 [History] Prasugrel [Effient] 10 mg PO DAILY tab 07/01/16 [Rx] Loperamide [Imodium] 2 mg PO TID 10/20/16 [History] Metoprolol Tartrate 50 mg PO BID 10/20/16 [History] Aspirin EC [Ecotrin Low Dose] 81 mg PO DAILY 11/07/16 [History] Cholecalciferol (Vitamin D3) [Vitamin D3] 2,000 unit PO DAILY 11/07/16 [History] Linagliptin [Tradjenta] 5 mg PO HS 12/19/16 [History] Ranitidine HCl 150 mg PO DAILY 12/19/16 [History] ARIPiprazole [Abilify] 15 mg PO HS #14 tab 01/27/17 [Rx] Sertraline HCl [Zoloft] 200 mg PO DAILY #28 01/27/17 [Rx] Discharge Disposition: HOME SELF-CARE
[2017-01-27 08:58] VITALS: BP 111/60; PULSE 82; RESP 20
== END 2017-01-27 10:40 | disposition home or self-care (01) | DRG 885 ==
LOC: 3MHU 21:37
PROVIDERS: ADMIT Psychiatry & Neurology Psychiatry; ATTEND Psychiatry & Neurology Psychiatry
DX: F33.2 Major depressive disorder, recurrent severe without psychotic features (principal); R45.851 Suicidal ideations; I69.351 Hemiplegia and hemiparesis following cerebral infarction affecting right dominant side; E11.9 Type 2 diabetes mellitus without complications; E86.0 Dehydration; G47.30 Sleep apnea, unspecified; I25.119 Atherosclerotic heart disease of native coronary artery with unspecified angina pectoris; Z88.5 Allergy status to narcotic agent; Z88.1 Allergy status to other antibiotic agents; Z91.041 Radiographic dye allergy status; Z88.0 Allergy status to penicillin; Z91.013 Allergy to seafood; Z79.82 Long term (current) use of aspirin; Z79.84 Long term (current) use of oral hypoglycemic drugs; Z79.899 Other long term (current) drug therapy; Z91.14 Patient's other noncompliance with medication regimen; Z91.19 Patient's noncompliance with other medical treatment and regimen; Z91.5 Personal history of self-harm

== ENCOUNTER 2017-02-05 02:18 | Emergency (ER) | payer MEDICARE, OTHER ==
[2017-02-05 02:25] VITALS: RESP 18; TEMP 98.4
[2017-02-05 03:28] LABS: Basophils % (A) 0 %; CH 27.4; CHCM 33.9; Eosinophils # (A) 0.1 k/uL (0-0.7); Eosinophils % (A) 2 %; HCT 37.3 % (39.0-53.0); HDW 2.98; HGB 12.2 gm/dL (13.0-17.5); Luc % (Auto) 2; Lymphocytes # (A) 1.6 k/uL (1.0-4.8); Lymphocytes % (A) 29 %; MCH 26.6 pg (25.0-35.0); MCHC 32.8 g/dL (31.0-37.0); MCV 81.1 fL (80.0-100.0); Mean Platelet Volume 8.1; Monocytes # (A) 0.3 k/uL (0-1.0); Monocytes % (A) 5 %; Neutrophils # (A) 3.6 k/uL (1.3-7.7); Neutrophils % (A) 62 %; RBC 4.59 m/uL (4.30-5.90); RDW 15.7 % (11.5-15.5); WBC 5.7 k/uL (3.8-10.6); WBC (Perox) 6.06
[2017-02-05 03:37] LABS: Calcium 9.1 mg/dL (8.4-10.2); Magnesium 1.2 mg/dL (1.6-2.3); Potassium 4.5 mmol/L (3.5-5.1); Total Bilirubin 0.6 mg/dL (0.2-1.3); Total Protein 6.3 g/dL (6.3-8.2)
[2017-02-05 03:41] LABS: INR 1.1 (<1.2); Prothrombin Time 10.6 sec (9.0-12.0)
[2017-02-05] MEDS ORDERED: SODIUM CHLORIDE 0.9% 1,000 ML IV ONE (03:45)
[2017-02-05] MEDS ORDERED: MAGNESIUM SULFATE-D5W PMX 1 GM in DEXTROSE/WATER 1 100ML.BAG IVPB ONE (03:46)
[2017-02-05 03:50] LABS: Partial Thromboplastin Time 21.8 sec (22.0-30.0)
--- NOTE | 2017-02-05 03:51 | ED ---
General Adult HPI - General Chief complaint: Chest Pain Stated complaint: body pain Time Seen by Provider: 02/05/17 02:32 Source: patient Mode of arrival: ambulatory Limitations: no limitations - History of Present Illness Initial comments: This patient is a 41-year-old man who presents to be evaluated for a constellation of symptoms. He states that the main issue is that he is feeling fatigued and rundown going on 2 days now. It was feeling worse after she had gone in and played pool [employer]. When he got home from there he checked his blood pressure was in the 80s. As in the nursing note he did have some chest sensations but he is denying chest pain to me. He states that he just does not feel well. The patient denies cough or dyspnea. He has not had chills. No other anginal type symptoms. Onset/Timin -: days(s) Improves with: none Worsens with: none Associated Symptoms: malaise, weakness Treatments Prior to Arrival: none - Related Data Home Medications Medication Instructions Recorded Confirmed Nitroglycerin Sl Tabs [Nitrostat] 0.4 mg SUBLINGUAL Q5M PRN 10/13/13 02/05/17 metFORMIN HCL 1,000 mg PO BID 07/03/15 02/05/17 Omeprazole [PriLOSEC] 40 mg PO HS 08/13/15 02/05/17 Baclofen [Lioresal] 10 mg PO AC-TID PRN 01/13/16 02/05/17 Dulaglutide [Trulicity] 1.5 mg SQ ORZOCO 03/10/16 02/05/17 Glimepiride 4 mg PO BID 03/10/16 02/05/17 Rosuvastatin Calcium 40 mg PO HS 05/05/16 02/05/17 Lisinopril [Zestril] 2.5 mg PO DAILY 06/01/16 02/05/17 Gabapentin [Neurontin] 300 mg PO BID 06/09/16 02/05/17 Ranolazine [Ranexa] 1,000 mg PO BID 06/09/16 02/05/17 Primidone [Mysoline] 100 mg PO HS 06/30/16 02/05/17 Loperamide [Imodium] 2 mg PO TID 10/20/16 02/05/17 Metoprolol Tartrate 50 mg PO BID 10/20/16 02/05/17 Aspirin EC [Ecotrin Low Dose] 81 mg PO DAILY 11/07/16 02/05/17 Cholecalciferol (Vitamin D3) 2,000 unit PO DAILY 11/07/16 02/05/17 [Vitamin D3] Linagliptin [Tradjenta] 5 mg PO HS 12/19/16 02/05/17 Ranitidine HCl 150 mg PO DAILY 12/19/16 02/05/17 Previous Rx's Medication Instructions Recorded Prasugrel [Effient] 10 mg PO DAILY tab 07/01/16 ARIPiprazole [Abilify] 15 mg PO HS #14 tab 01/27/17 Sertraline HCl [Zoloft] 200 mg PO DAILY #28 01/27/17 Allergies Allergy/AdvReac Type Severity Reaction Status Date / Time erythromycin base Allergy Severe Swelling Verified 02/05/17 02:25 [Erythromycin Base] codeine Allergy Unknown Swelling Verified 02/05/17 02:25 meclizine Allergy Unknown Unknown Verified 02/05/17 02:25 Penicillins Allergy Unknown Rash/Hives Verified 02/05/17 02:25 shellfish derived Allergy Unknown Anaphylaxis Verified 02/05/17 02:25 Fish Containing Products Allergy Anaphylaxis Verified 02/05/17 02:25 [Fish] Iodinated Contrast- Oral and Allergy Anaphylaxis Verified 02/05/17 02:25 IV Dye cephalexin monohydrate AdvReac Unknown Nausea & Verified 02/05/17 02:25 [From Keflex] Vomiting naproxen AdvReac Unknown Compromises Verified 02/05/17 02:25 Kidney Function atorvastatin calcium AdvReac Myalgia Verified 02/05/17 02:25 [From Lipitor] hydrocodone [From [place]] AdvReac Rapid Verified 02/05/17 02:25 Heart Rate Review of Systems ROS Statement: Those systems with pertinent positive or pertinent negative responses have been documented in the HPI. ROS Other: All systems not noted in ROS Statement are negative. Constitutional: Reports: weakness. Denies: fever, chills Respiratory: Denies: cough, dyspnea Cardiovascular: Denies: chest pain, palpitations, dyspnea on exertion, orthopnea , edema, syncope Endocrine: Reports: fatigue Gastrointestinal: Denies: abdominal pain, vomiting, diarrhea Musculoskeletal: Denies: back pain Skin: Denies: rash Neurological: Denies: headache, weakness, numbness Past Medical History Past Medical History: Coronary Artery Disease (CAD), Chest Pain / Angina, Heart Failure, CVA/TIA, Diabetes Mellitus, GERD/Reflux, Hyperlipidemia, Hypertension, Myocardial Infarction (NE), Osteoarthritis (OA), Pneumonia, Skin Disorder, Sleep Apnea/CPAP/BIPAP Additional Past Medical History / Comment(s): HX: Coronary artery disease with multiple vessel disease, ischemic cardiomyopathy, diabetic neuropathy bilateral hands and feet, hypertension hypertensive cardiovascular disease, chronic gastritis, chronic back pain, depression with hx of suicide attempts, GASTROPARESIS, PSORIASES,NIDDM type II. Last Myocardial Infarction Date:: 06/03/16 per pt. 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 Past Anesthesia/Blood Transfusion Reactions: No Reported Reaction Additional Past Anesthesia/Blood Transfusion Reaction / Comment(s): . Date of Last Stent Placement:: 06/03/16 Type of Cardiac Device: Biventricular Pacemaker, AICD Device Placement Date:: 09/19/15 Past Psychological History: Anxiety, Depression, PTSD Smoking Status: Never smoker - Past Family History Mother Family Medical History: Coronary Artery Disease (CAD), Myocardial Infarction (NE ) Additional Family Medical History / Comment(s): 7 NE and faulty heart valve. Pt does not know the age when mother had her MIs. Father History Unknown: Yes Additional Family Medical History / Comment(s): Does not know who father is Brother(s) Family Medical History: Congestive Heart Failure (CHF), Myocardial Infarction ( NE) Additional Family Medical History / Comment(s): Parkinsons. Pt does not know at what age his brother had a NE Patient has Family Medical History: No Reported History Additional Family Medical History / Comment(s): There is a strong family history for heart disease, hypertension, and diabetes. General Exam Limitations: no limitations General appearance: alert, in no apparent distress Head exam: Present: atraumatic, normocephalic Eye exam: Present: normal appearance. Absent: scleral icterus, conjunctival injection ENT exam: Present: normal oropharynx Neck exam: Present: normal inspection, full ROM Respiratory exam: Present: normal lung sounds bilaterally. Absent: respiratory distress, wheezes, rales, rhonchi, stridor Cardiovascular Exam: Present: regular rate, normal rhythm, normal heart sounds. Absent: systolic murmur, diastolic murmur, rubs, gallop GI/Abdominal exam: Present: soft. Absent: distended, tenderness, guarding, rebound, mass Extremities exam: Present: normal inspection, normal capillary refill. Absent: pedal edema, calf tenderness Back exam: Present: normal inspection. Absent: CVA tenderness (R), CVA tenderness (L) Skin exam: Present: warm, dry, intact, normal color. Absent: rash Course Vital Signs 02/05/17 02/05/17 02/05/17 02:21 04:18 05:08 Temperature 98.4 F Pulse Rate 81 100 86 Respiratory 18 18 18 Rate Blood Pressure 145/79 102/50 109/66 O2 Sat by Pulse 99 97 97 Oximetry 02/05/17 02/05/17 06:08 06:57 Temperature Pulse Rate 68 68 Respiratory 18 18 Rate Blood Pressure 124/69 106/55 O2 Sat by Pulse 97 97 Oximetry EKG Findings - EKG Comments: EKG Findings:: The EKG is unchanged when compared with 01/24/2017 - EKG Results: EKG: interpreted by ERMD, sinus rhythm (Rate approximately 80 bpm) - Blocks, [place], Hypertrophy, ST Abn: QRS axis and voltage: right axis deviation (+90 to +180) - NE, Pacemaker, Normal: Myocardial infarction: septal NE (old age or indeterminate) (Old anteroseptal infarct.) Medical Decision Making - Lab Data Result diagrams: 02/05/17 03:10 02/05/17 03:10 Lab Results 02/05/17 02/05/17 02/05/17 Range/Units 03:10 03:10 03:10 WBC 5.7 (3.8-10.6) k/uL RBC 4.59 (4.30-5.90) m/uL Hgb 12.2 L (13.0-17.5) gm/dL Hct 37.3 L (39.0-53.0) % MCV 81.1 (80.0-100.0) fL MCH 26.6 (25.0-35.0) pg MCHC 32.8 (31.0-37.0) g/dL RDW 15.7 H (11.5-15.5) % Plt Count 191 (150-450) k/uL Neutrophils % 62 % Lymphocytes % 29 % Monocytes % 5 % Eosinophils % 2 % Basophils % 0 % Neutrophils # 3.6 (1.3-7.7) k/uL Lymphocytes # 1.6 (1.0-4.8) k/uL Monocytes # 0.3 (0-1.0) k/uL Eosinophils # 0.1 (0-0.7) k/uL Basophils # 0.0 (0-0.2) k/uL PT (9.0-12.0) sec INR (<1.2) APTT (22.0-30.0) sec Sodium 136 L (137-145) mmol/L Potassium 4.5 (3.5-5.1) mmol/L Chloride 103 (98-107) mmol/L Carbon Dioxide 23 (22-30) mmol/L Anion Gap 10 mmol/L BUN 24 H (9-20) mg/dL Creatinine 1.80 H (0.66-1.25) mg/dL Est GFR (MDRD) Af Amer 51 (>60 ml/min/1.73 sqM) Est GFR (MDRD) Non-Af 42 (>60 ml/min/1.73 sqM) Glucose 79 (74-99) mg/dL Calcium 9.1 (8.4-10.2) mg/dL Magnesium 1.2 L (1.6-2.3) mg/dL Total Bilirubin 0.6 (0.2-1.3) mg/dL AST 24 (17-59) U/L ALT 29 (21-72) U/L Alkaline Phosphatase 83 (38-126) U/L Total Creatine Kinase 85 (55-170) U/L CK-MB (CK-2) 1.7 (0.0-2.4) ng/mL CK-MB (CK-2) Rel Index 2.0 Troponin I 0.070 H* (0.000-0.034) ng/mL Total Protein 6.3 (6.3-8.2) g/dL Albumin 3.8 (3.5-5.0) g/dL 02/05/17 02/05/17 Range/Units 03:10 06:09 WBC (3.8-10.6) k/uL RBC (4.30-5.90) m/uL Hgb (13.0-17.5) gm/dL Hct (39.0-53.0) % MCV (80.0-100.0) fL MCH (25.0-35.0) pg MCHC (31.0-37.0) g/dL RDW (11.5-15.5) % Plt Count (150-450) k/uL Neutrophils % % Lymphocytes % % Monocytes % % Eosinophils % % Basophils % % Neutrophils # (1.3-7.7) k/uL Lymphocytes # (1.0-4.8) k/uL Monocytes # (0-1.0) k/uL Eosinophils # (0-0.7) k/uL Basophils # (0-0.2) k/uL PT 10.6 (9.0-12.0) sec INR 1.1 (<1.2) APTT 21.8 L (22.0-30.0) sec Sodium (137-145) mmol/L Potassium (3.5-5.1) mmol/L Chloride (98-107) mmol/L Carbon Dioxide (22-30) mmol/L Anion Gap mmol/L BUN (9-20) mg/dL Creatinine (0.66-1.25) mg/dL Est GFR (MDRD) Af Amer (>60 ml/min/1.73 sqM) Est GFR (MDRD) Non-Af (>60 ml/min/1.73 sqM) Glucose (74-99) mg/dL Calcium (8.4-10.2) mg/dL Magnesium (1.6-2.3) mg/dL Total Bilirubin (0.2-1.3) mg/dL AST (17-59) U/L ALT (21-72) U/L Alkaline Phosphatase (38-126) U/L Total Creatine Kinase (55-170) U/L CK-MB (CK-2) (0.0-2.4) ng/mL CK-MB (CK-2) Rel Index Troponin I 0.081 H* (0.000-0.034) ng/mL Total Protein (6.3-8.2) g/dL Albumin (3.5-5.0) g/dL Disposition Clinical Impression: Chest pain, Dehydration Disposition: HOME SELF-CARE Condition: Good Instructions: Chest Pain (ED), Dehydration (ED) Referrals: Junie New MD [Primary Care Provider] - 1-2 days
--- NOTE | 2017-02-05 03:58 | XR ---
EXAM: XR Chest, 1 View CLINICAL HISTORY: Reason: chest pain TECHNIQUE: Frontal view of the chest. COMPARISON: December 30, 2016. FINDINGS: Lungs: Unremarkable. No consolidation. Pleural space: Unremarkable. No pneumothorax. Heart: Pacemaker device in place. No cardiomegaly. Mediastinum: Unremarkable. Bones/joints: Unremarkable. IMPRESSION: No acute cardiopulmonary process.
[2017-02-05 04:06] LABS: Creatine Kinase MB 1.7 ng/mL (0.0-2.4); Troponin I 0.07 ng/mL (0.000-0.034)
[2017-02-05 06:24] VITALS: PULSE 68
[2017-02-05] MEDS ORDERED: MORPHINE SULFATE 4 MG/ML SYRINGE IV STA (06:58)
[2017-02-05 06:59] VITALS: BP 106/55
== END 2017-02-05 07:21 | disposition home or self-care (01) ==
LOC: EC 02:18
DX: R07.9 Chest pain, unspecified (principal); E86.0 Dehydration; I25.10 Atherosclerotic heart disease of native coronary artery without angina pectoris; I11.0 Hypertensive heart disease with heart failure; I50.9 Heart failure, unspecified; I25.2 Old myocardial infarction; E78.5 Hyperlipidemia, unspecified; E11.9 Type 2 diabetes mellitus without complications; K21.9 Gastro-esophageal reflux disease without esophagitis; G47.30 Sleep apnea, unspecified; Z99.89 Dependence on other enabling machines and devices; Z86.14 Personal history of Methicillin resistant Staphylococcus aureus infection; Z86.73 Personal history of transient ischemic attack (TIA), and cerebral infarction without residual deficits; Z95.5 Presence of coronary angioplasty implant and graft; Z95.0 Presence of cardiac pacemaker; Z79.84 Long term (current) use of oral hypoglycemic drugs; Z79.82 Long term (current) use of aspirin; Z79.899 Other long term (current) drug therapy; Z88.0 Allergy status to penicillin; Z88.1 Allergy status to other antibiotic agents; Z88.5 Allergy status to narcotic agent; Z88.6 Allergy status to analgesic agent; Z88.8 Allergy status to other drugs, medicaments and biological substances; Z91.013 Allergy to seafood; Z91.041 Radiographic dye allergy status
CPT/HCPCS: 36415; 93005; 80053; 82550; 82553; 83735; 84484; 85025; 85610; 85730; 71010; 99285; 96365; 96366 ×2; 96375; J2270; J3475

== ENCOUNTER 2017-02-14 13:50 | Inpatient (IN) | payer MEDICARE, OTHER ==
[2017-02-14] MEDS ORDERED: SODIUM CHLORIDE 0.9% 1,000 ML IV STA (14:22)
[2017-02-14] MEDS ORDERED: ONDANSETRON 4 MG/2 ML VIAL IVP STA (14:22)
[2017-02-14 14:23] LABS: Glucose,Whole Blood 218 mg/dL (75-99)
--- NOTE | 2017-02-14 14:28 | ED ---
General Adult HPI - General Chief complaint: Nausea/Vomiting/Diarrhea Stated complaint: Dizzy/Nausea/Vomiting Time Seen by Provider: 02/14/17 14:09 Source: patient, RN notes reviewed, old records reviewed Mode of arrival: wheelchair Limitations: no limitations - History of Present Illness Initial comments: 41-year-old male with history of ischemic cardiomyopathy status post stenting and pacemaker defibrillator placement, presents with chief complaint of nausea vomiting. Patient states he has had one hour of severe nausea vomiting. He does have history of gastroparesis secondary to diabetes. He also reports exertional dyspnea. Denies chest pain. Denies lower extremity swelling. Patient was outside, it is very hot today. [facility]. Patient felt very lightheaded, significant nausea, with vomiting. Patient states he has been compliant with his medications. Denies fever or chills. Denies focal weakness. Denies abdominal pain. - Related Data Home Medications Medication Instructions Recorded Confirmed Nitroglycerin Sl Tabs [Nitrostat] 0.4 mg SUBLINGUAL Q5M PRN 10/13/13 02/14/17 metFORMIN HCL 1,000 mg PO BID 07/03/15 02/14/17 Omeprazole [PriLOSEC] 40 mg PO HS 08/13/15 02/14/17 Dulaglutide [Trulicity] 1.5 mg SQ OROZCO 03/10/16 02/14/17 Glimepiride 4 mg PO BID 03/10/16 02/14/17 Rosuvastatin Calcium 40 mg PO HS 05/05/16 02/14/17 Lisinopril [Zestril] 2.5 mg PO DAILY 06/01/16 02/14/17 Gabapentin [Neurontin] 300 mg PO TID 06/09/16 02/14/17 Ranolazine [Ranexa] 1,000 mg PO BID 06/09/16 02/14/17 Primidone [Mysoline] 100 mg PO HS 06/30/16 02/14/17 Loperamide [Imodium] 2 mg PO TID 10/20/16 02/14/17 Metoprolol Tartrate 50 mg PO BID 10/20/16 02/14/17 Aspirin EC [Ecotrin Low Dose] 81 mg PO DAILY 11/07/16 02/14/17 Cholecalciferol (Vitamin D3) 2,000 unit PO DAILY 11/07/16 02/14/17 [Vitamin D3] Linagliptin [Tradjenta] 5 mg PO HS 12/19/16 02/14/17 ARIPiprazole [ARIPiprazole Odt] 15 mg PO HS 02/14/17 02/14/17 Albuterol Inhaler [Ventolin Hfa 1 - 2 puff INHALATION RT-QID PRN 02/14/17 Inhaler] Ciprofloxacin HCl [Cipro] 500 mg PO BID 02/14/17 02/14/17 Ranitidine HCl 300 mg PO DAILY 02/14/17 02/14/17 Previous Rx's Medication Instructions Recorded Prasugrel [Effient] 10 mg PO DAILY tab 07/01/16 Sertraline HCl [Zoloft] 200 mg PO DAILY #28 01/27/17 Allergies Allergy/AdvReac Type Severity Reaction Status Date / Time erythromycin base Allergy Severe Swelling Verified 02/14/17 14:55 [Erythromycin Base] codeine Allergy Unknown Swelling Verified 02/14/17 14:55 meclizine Allergy Unknown Unknown Verified 02/14/17 14:55 Penicillins Allergy Unknown Rash/Hives Verified 02/14/17 14:55 shellfish derived Allergy Unknown Anaphylaxis Verified 02/14/17 14:55 Fish Containing Products Allergy Anaphylaxis Verified 02/14/17 14:55 [Fish] Iodinated Contrast- Oral and Allergy Anaphylaxis Verified 02/14/17 14:55 IV Dye cephalexin monohydrate AdvReac Unknown Nausea & Verified 02/14/17 14:55 [From Keflex] Vomiting naproxen AdvReac Unknown Compromises Verified 02/14/17 14:55 Kidney Function atorvastatin calcium AdvReac Myalgia Verified 02/14/17 14:55 [From Lipitor] hydrocodone [From Din[place]] AdvReac Rapid Verified 02/14/17 14:55 Heart Rate Review of Systems ROS Statement: Those systems with pertinent positive or pertinent negative responses have been documented in the HPI. ROS Other: All systems not noted in ROS Statement are negative. Past Medical History Past Medical History: Coronary Artery Disease (CAD), Chest Pain / Angina, Heart Failure, CVA/TIA, Diabetes Mellitus, GERD/Reflux, Hyperlipidemia, Hypertension, Myocardial Infarction (DC), Osteoarthritis (OA), Pneumonia, Skin Disorder, Sleep Apnea/CPAP/BIPAP Additional Past Medical History / Comment(s): HX: Coronary artery disease with multiple vessel disease, ischemic cardiomyopathy, diabetic neuropathy bilateral hands and feet, hypertension hypertensive cardiovascular disease, chronic gastritis, chronic back pain, depression with hx of suicide attempts, GASTROPARESIS, PSORIASES,NIDDM type II. Last Myocardial Infarction Date:: 06/03/16 per pt. 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 Past Anesthesia/Blood Transfusion Reactions: No Reported Reaction Additional Past Anesthesia/Blood Transfusion Reaction / Comment(s): . Date of Last Stent Placement:: 06/03/16 Type of Cardiac Device: Biventricular Pacemaker, AICD Device Placement Date:: 09/19/15 Past Psychological History: Anxiety, Depression, PTSD Smoking Status: Never smoker Past Alcohol Use History: Occasional Past Drug Use History: Marijuana - Past Family History Mother Family Medical History: Coronary Artery Disease (CAD), Myocardial Infarction (DC ) Additional Family Medical History / Comment(s): 7 DC and faulty heart valve. Pt does not know the age when mother had her MIs. Father History Unknown: Yes Additional Family Medical History / Comment(s): Does not know who father is Brother(s) Family Medical History: Congestive Heart Failure (CHF), Myocardial Infarction ( DC) Additional Family Medical History / Comment(s): Parkinsons. Pt does not know at what age his brother had a DC Patient has Family Medical History: No Reported History Additional Family Medical History / Comment(s): There is a strong family history for heart disease, hypertension, and diabetes. General Exam Limitations: no limitations General appearance: lethargic, in distress Head exam: Present: atraumatic, normocephalic Eye exam: Present: normal appearance, PERRL ENT exam: Present: mucous membranes dry Respiratory exam: Present: decreased breath sounds Cardiovascular Exam: Present: regular rate, normal rhythm GI/Abdominal exam: Present: soft, distended. Absent: tenderness Extremities exam: Present: normal capillary refill. Absent: pedal edema Neurological exam: Present: alert, oriented X3. Absent: motor sensory deficit Psychiatric exam: Present: normal affect, normal mood Skin exam: Present: warm, diaphoretic, pallor. Absent: cyanosis Course Vital Signs 02/14/17 02/14/17 02/14/17 14:00 14:11 14:22 Temperature 97.1 F L Pulse Rate 75 77 77 Respiratory 18 18 18 Rate Blood Pressure 75/47 89/54 67/40 O2 Sat by Pulse 96 98 98 Oximetry 02/14/17 02/14/17 02/14/17 14:45 14:55 15:05 Temperature Pulse Rate 72 70 70 Respiratory 18 18 18 Rate Blood Pressure 97/72 79/40 74/37 O2 Sat by Pulse 97 98 97 Oximetry 02/14/17 15:10 Temperature Pulse Rate 70 Respiratory 18 Rate Blood Pressure 72/37 O2 Sat by Pulse 98 Oximetry EKG Findings - EKG Comments: EKG Findings:: EKG shows atrial sensed ventricular paced rhythm with a rate 75. ID interval 152, QRS duration 124, QTC 471, no ST segment elevation Medical Decision Making - Medical Decision Making 41-year-old male with history of cardiomyopathy, diabetes, gastroparesis, and hypertension presents with lightheadedness, nausea and vomiting as well as diaphoresis. Patient denied chest pain. Does have some exertional dyspnea which is typical for him. Patient's found to be hypotensive in the 70s systolic. Patient's heart rate is paced at 75. He has history of pacemaker defibrillator placed for cardiomyopathy. Patient was out in the sun, when he developed these symptoms. Symptoms are likely related to dehydration. Patient' s blood sugar has been elevated over the past several days in the mid 200s. Laboratory studies reveal normal white blood cell count 6.4, hemoglobin is stable 13.2, potassium mildly elevated at 5.3, creatinine is 1.7 which is stable from most recent blood draw at 1.8. Glucose elevated at 260. Mild lactic acidosis 2.6. Magnesium is low 1.5. Magnesium replacement will be held at this time secondary to hypotension. History receives IV hydration and antiemetics in the emergency department. On reevaluation is feeling somewhat better. Blood pressure remains low after initial 1 L IV bolus, in the mid 80s systolic. Patient receives continued IV hydration. 2 IVs are established. Symptoms are improving. Urinalysis shows signs of dehydration, chest x-ray is negative for pulmonary edema or focal infiltrate. Patient will benefit from rehydration. Diagnosis: Dehydration, hypotension, lactic acidosis, hyperkalemia, chronic renal failure, cardiomyopathy - Lab Data Result diagrams: 02/14/17 14:24 02/14/17 14:24 Lab Results 02/14/17 02/14/17 02/14/17 Range/Units 14:03 14:24 14:24 WBC (3.8-10.6) k/uL RBC (4.30-5.90) m/uL Hgb (13.0-17.5) gm/dL Hct (39.0-53.0) % MCV (80.0-100.0) fL MCH (25.0-35.0) pg MCHC (31.0-37.0) g/dL RDW (11.5-15.5) % Plt Count (150-450) k/uL Neutrophils % % Lymphocytes % % Monocytes % % Eosinophils % % Basophils % % Neutrophils # (1.3-7.7) k/uL Lymphocytes # (1.0-4.8) k/uL Monocytes # (0-1.0) k/uL Eosinophils # (0-0.7) k/uL Basophils # (0-0.2) k/uL Anisocytosis PT (9.0-12.0) sec INR (<1.2) APTT (22.0-30.0) sec Sodium (137-145) mmol/L Potassium (3.5-5.1) mmol/L Chloride (98-107) mmol/L Carbon Dioxide (22-30) mmol/L Anion Gap mmol/L BUN (9-20) mg/dL Creatinine (0.66-1.25) mg/dL Est GFR (MDRD) Af Amer (>60 ml/min/1.73 sqM) Est GFR (MDRD) Non-Af (>60 ml/min/1.73 sqM) Glucose (74-99) mg/dL POC Glucose (mg/dL) 218 H (75-99) mg/dL POC Glu Race[employer] ID Sherron Fernandez Plasma Lactic Acid Timbo 2.6 H* (0.7-2.0) mmol/L Calcium (8.4-10.2) mg/dL Magnesium (1.6-2.3) mg/dL Total Bilirubin (0.2-1.3) mg/dL AST (17-59) U/L ALT (21-72) U/L Alkaline Phosphatase (38-126) U/L Total Creatine Kinase 95 (55-170) U/L CK-MB (CK-2) 1.7 (0.0-2.4) ng/mL CK-MB (CK-2) Rel Index 1.8 Troponin I <0.012 (0.000-0.034) ng/mL NT-Pro-B Natriuret Pep pg/mL Total Protein (6.3-8.2) g/dL Albumin (3.5-5.0) g/dL Lipase (23-300) U/L Urine Color Urine Appearance (Clear) Urine pH (5.0-8.0) Ur Specific Goodrich (1.001-1.035) Urine Protein (Negative) Urine Glucose (UA) (Negative) Urine Ketones (Negative) Urine Blood (Negative) Urine Nitrite (Negative) Urine Bilirubin (Negative) Urine Urobilinogen (<2.0) mg/dL Ur Leukocyte Esterase (Negative) Urine RBC (0-5) /hpf Urine WBC (0-5) /hpf Ur Squamous Epith Cells (0-4) /hpf Hyaline Casts (0-2) /lpf Urine Mucus (None) /hpf 02/14/17 02/14/17 02/14/17 Range/Units 14:24 14:24 14:24 WBC 6.5 (3.8-10.6) k/uL RBC 4.89 (4.30-5.90) m/uL Hgb 13.2 (13.0-17.5) gm/dL Hct 41.2 (39.0-53.0) % MCV 84.2 (80.0-100.0) fL MCH 27.0 (25.0-35.0) pg MCHC 32.1 (31.0-37.0) g/dL RDW 16.2 H (11.5-15.5) % Plt Count 225 (150-450) k/uL Neutrophils % 78 % Lymphocytes % 13 % Monocytes % 4 % Eosinophils % 3 % Basophils % 1 % Neutrophils # 5.1 (1.3-7.7) k/uL Lymphocytes # 0.8 L (1.0-4.8) k/uL Monocytes # 0.3 (0-1.0) k/uL Eosinophils # 0.2 (0-0.7) k/uL Basophils # 0.1 (0-0.2) k/uL Anisocytosis Slight PT (9.0-12.0) sec INR (<1.2) APTT (22.0-30.0) sec Sodium 138 (137-145) mmol/L Potassium 5.3 H (3.5-5.1) mmol/L Chloride 105 (98-107) mmol/L Carbon Dioxide 17 L (22-30) mmol/L Anion Gap 16 mmol/L BUN 32 H (9-20) mg/dL Creatinine 1.70 H (0.66-1.25) mg/dL Est GFR (MDRD) Af Amer 54 (>60 ml/min/1.73 sqM) Est GFR (MDRD) Non-Af 45 (>60 ml/min/1.73 sqM) Glucose 238 H (74-99) mg/dL POC Glucose (mg/dL) (75-99) mg/dL POC Glu Racecar Driver ID Plasma Lactic Acid Timbo (0.7-2.0) mmol/L Calcium 9.7 (8.4-10.2) mg/dL Magnesium 1.5 L (1.6-2.3) mg/dL Total Bilirubin 0.7 (0.2-1.3) mg/dL AST 24 (17-59) U/L ALT 39 (21-72) U/L Alkaline Phosphatase 115 (38-126) U/L Total Creatine Kinase (55-170) U/L CK-MB (CK-2) (0.0-2.4) ng/mL CK-MB (CK-2) Rel Index Troponin I (0.000-0.034) ng/mL NT-Pro-B Natriuret Pep 871 pg/mL Total Protein 6.5 (6.3-8.2) g/dL Albumin 3.9 (3.5-5.0) g/dL Lipase 92 (23-300) U/L Urine Color Urine Appearance (Clear) Urine pH (5.0-8.0) Ur Specific Goodrich (1.001-1.035) Urine Protein (Negative) Urine Glucose (UA) (Negative) Urine Ketones (Negative) Urine Blood (Negative) Urine Nitrite (Negative) Urine Bilirubin (Negative) Urine Urobilinogen (<2.0) mg/dL Ur Leukocyte Esterase (Negative) Urine RBC (0-5) /hpf Urine WBC (0-5) /hpf Ur Squamous Epith Cells (0-4) /hpf Hyaline Casts (0-2) /lpf Urine Mucus (None) /hpf 02/14/17 02/14/17 Range/Units 14:24 15:17 WBC (3.8-10.6) k/uL RBC (4.30-5.90) m/uL Hgb (13.0-17.5) gm/dL Hct (39.0-53.0) % MCV (80.0-100.0) fL MCH (25.0-35.0) pg MCHC (31.0-37.0) g/dL RDW (11.5-15.5) % Plt Count (150-450) k/uL Neutrophils % % Lymphocytes % % Monocytes % % Eosinophils % % Basophils % % Neutrophils # (1.3-7.7) k/uL Lymphocytes # (1.0-4.8) k/uL Monocytes # (0-1.0) k/uL Eosinophils # (0-0.7) k/uL Basophils # (0-0.2) k/uL Anisocytosis PT 10.7 (9.0-12.0) sec INR 1.1 (<1.2) APTT 20.9 L (22.0-30.0) sec Sodium (137-145) mmol/L Potassium (3.5-5.1) mmol/L Chloride (98-107) mmol/L Carbon Dioxide (22-30) mmol/L Anion Gap mmol/L BUN (9-20) mg/dL Creatinine (0.66-1.25) mg/dL Est GFR (MDRD) Af Amer (>60 ml/min/1.73 sqM) Est GFR (MDRD) Non-Af (>60 ml/min/1.73 sqM) Glucose (74-99) mg/dL POC Glucose (mg/dL) (75-99) mg/dL POC Glu Racecar Driver ID Plasma Lactic Acid Timbo (0.7-2.0) mmol/L Calcium (8.4-10.2) mg/dL Magnesium (1.6-2.3) mg/dL Total Bilirubin (0.2-1.3) mg/dL AST (17-59) U/L ALT (21-72) U/L Alkaline Phosphatase (38-126) U/L Total Creatine Kinase (55-170) U/L CK-MB (CK-2) (0.0-2.4) ng/mL CK-MB (CK-2) Rel Index Troponin I (0.000-0.034) ng/mL NT-Pro-B Natriuret Pep pg/mL Total Protein (6.3-8.2) g/dL Albumin (3.5-5.0) g/dL Lipase (23-300) U/L Urine Color Yellow Urine Appearance Clear (Clear) Urine pH 5.5 (5.0-8.0) Ur Specific Goodrich 1.022 (1.001-1.035) Urine Protein 2+ H (Negative) Urine Glucose (UA) Trace H (Negative) Urine Ketones Negative (Negative) Urine Blood Trace H (Negative) Urine Nitrite Negative (Negative) Urine Bilirubin Negative (Negative) Urine Urobilinogen <2.0 (<2.0) mg/dL Ur Leukocyte Esterase Negative (Negative) Urine RBC 1 (0-5) /hpf Urine WBC 1 (0-5) /hpf Ur Squamous Epith Cells <1 (0-4) /hpf Hyaline Casts 11 H (0-2) /lpf Urine Mucus Occasional H (None) /hpf Critical Care Time Critical Care Time: Yes Total Critical Care Time: 35 Disposition Clinical Impression: Dehydration, Cardiomyopathy, Lactic acidosis, Nausea & vomiting Disposition: ADMITTED IP TO THIS [facility] Condition: Serious Referrals: Junie New MD [Primary Care Provider] - 1-2 days Decision to Admit Reason: Admit from EC Decision Date: 02/14/17 Decision Time: 15:46
[2017-02-14] MEDS: SODIUM CHLORIDE 0.9% 500 ML IV STA ×3 (14:43→16:17)
[2017-02-14 14:48] LABS: Anisocytosis Slight; Basophils # (A) 0.1 k/uL (0-0.2); Basophils % (A) 1 %; CH 27.6; CHCM 32.9; Eosinophils # (A) 0.2 k/uL (0-0.7); Eosinophils % (A) 3 %; HCT 41.2 % (39.0-53.0); HDW 2.93; HGB 13.2 gm/dL (13.0-17.5); Luc # (Auto) 0.07; Luc % (Auto) 1; Lymphocytes # (A) 0.8 k/uL (1.0-4.8); Lymphocytes % (A) 13 %; MCHC 32.1 g/dL (31.0-37.0); MCV 84.2 fL (80.0-100.0); Monocytes # (A) 0.3 k/uL (0-1.0); Monocytes % (A) 4 %; Neutrophils # (A) 5.1 k/uL (1.3-7.7); Neutrophils % (A) 78 %; RBC 4.89 m/uL (4.30-5.90); RDW 16.2 % (11.5-15.5); WBC 6.5 k/uL (3.8-10.6)
[2017-02-14 14:57] LABS: Calcium 9.7 mg/dL (8.4-10.2); Magnesium 1.5 mg/dL (1.6-2.3); Potassium 5.3 mmol/L (3.5-5.1); Total Bilirubin 0.7 mg/dL (0.2-1.3); Total Protein 6.5 g/dL (6.3-8.2)
[2017-02-14 14:58] LABS: INR 1.1 (<1.2); Prothrombin Time 10.7 sec (9.0-12.0)
--- NOTE | 2017-02-14 14:58 | XR ---
EXAMINATION TYPE: XR chest 1V portable DATE OF EXAM: 02/14/2017 COMPARISON: 02/05/2017 HISTORY: Dizziness. Chest pain TECHNIQUE: Single frontal view of the chest is obtained. FINDINGS: There is no heart failure nor confluent pneumonic infiltrate. There are chest leads. Costo phrenic angles are clear. There is left axillary pacemaker with the lead tips over the right ventricl e. Bony thorax is intact. IMPRESSION: No active cardiopulmonary disease. No change.
[2017-02-14 15:07] LABS: Partial Thromboplastin Time 20.9 sec (22.0-30.0)
[2017-02-14 15:09] LABS: Creatine Kinase 95 U/L (55-170)
[2017-02-14 15:21] LABS: Creatine Kinase MB 1.7 ng/mL (0.0-2.4); Troponin I <0.012 ng/mL (0.000-0.034)
[2017-02-14 15:39] LABS: Appearance,Urine Clear (Clear); Bilirubin,Urine Negative (Negative); Glucose,Urine (UA) Trace (Negative); Ketones,Urine Negative (Negative); Leukocyte Esterase,Urine Negative (Negative); Mucus,Urine Occasional /hpf; Nitrite,Urine Negative (Negative); PH, Urine 5.5 (5.0-8.0); Particle Count 5720; Protein,Urine 2+ (Negative); RBC,Urine 1 /hpf (0-5); Specific Gravity,Urine 1.022 (1.001-1.035); Squamous Epithelial Cell,Urine <1 /hpf (0-4); UA Billing (MACRO vs. MICRO) MICRO; Urobilinogen,Urine <2.0 mg/dL (<2.0); WBC,Urine 1 /hpf (0-5)
[2017-02-14] MEDS ORDERED: SODIUM CHLORIDE 0.9% 500 ML IV ONE ×2 (15:42→16:18)
[2017-02-14] MEDS ORDERED: NALOXONE 0.4 MG/ML 1 ML VIAL IV PRN (15:52)
[2017-02-14] MEDS ORDERED: ONDANSETRON 4 MG/2 ML VIAL IVP PRN (15:52)
[2017-02-14] MEDS ORDERED: ACETAMINOPHEN TAB 325 MG TAB PO PRN (15:52)
[2017-02-14] MEDS: SODIUM CHLORIDE 0.9% 1,000 ML IV SCH ×2 (16:33→22:15)
[2017-02-14 19:43] LABS: Glucose,Whole Blood 166 mg/dL (75-99)
[2017-02-14] MEDS ORDERED: Magnesium Replacement Protocol 1 EACH MISC MISCELLANE PRN (19:52)
[2017-02-14 20:03] VITALS: BMI 41.5
[2017-02-14] MEDS: PRIMIDONE 50 MG TAB PO SCH (20:11)
[2017-02-14] MEDS: GABAPENTIN 300 MG CAP PO SCH (20:12)
[2017-02-14] MEDS: metFORMIN 500 MG TAB PO SCH (20:12)
[2017-02-14] MEDS ORDERED: TEMAZEPAM 15 MG CAP PO PRN (20:13)
[2017-02-14] MEDS ORDERED: ALPRAZolam 0.25 MG TAB PO PRN (20:13)
[2017-02-14] MEDS ORDERED: NITROGLYCERIN SL TABS 0.4 MG TAB SUBLINGUAL PRN (20:14)
[2017-02-14] MEDS ORDERED: ALBUTEROL NEBULIZED 2.5 MG/3 ML INHALATION PRN (20:14)
[2017-02-14 20:50] LABS: Hemoglobin A1C 8.6 % (4.2-6.1)
[2017-02-14] MEDS ORDERED: ROSUVASTATIN CALCIUM 40 MG PO SCH (21:00)
[2017-02-14] MEDS: ARIPiprazole 15 MG TAB PO SCH (21:36)
[2017-02-14] MEDS: RANOLAZINE 500 MG TAB.ER.12H PO SCH (21:36)
[2017-02-14] MEDS: LOPERAMIDE 2 MG CAP PO SCH (21:37)
[2017-02-14] MEDS: LINAGLIPTIN 5 MG TABLET PO SCH (21:37)
[2017-02-14] MEDS: CIPROFLOXACIN HCL 500 MG TAB PO SCH (21:37)
[2017-02-14] MEDS: INSULIN LISPRO (humaLOG) 300 UNIT/3 ML VIAL SQ SCH (22:07)
[2017-02-14] MEDS: MAGNESIUM SULFATE-D5W PMX 1 GM in DEXTROSE/WATER 1 100ML.BAG IVPB SCH (22:07)
[2017-02-14] MEDS: HEPARIN SODIUM,PORCINE 5,000 UNIT/ML 1 ML VIAL SQ SCH (22:07)
[2017-02-14] MEDS: PANTOPRAZOLE 40 MG/10 ML VIAL IVP SCH (22:07)
--- NOTE | 2017-02-14 23:32 | HP ---
HISTORY AND PHYSICAL DATE OF SERVICE: 02/14/2017 CHIEF COMPLAINS: Weakness and hypertension, nausea, vomiting, diarrhea. HISTORY OF PRESENT ILLNESS: This 41-year-old gentleman with a past medical history of CAD, CHF, history cardiomyopathy, history of AICD being followed Dr. Junie New as well as Dr. Peres in [facility], was attending the birthday republic[employer] of a friend. The patient felt weak and nauseous. The patient had multiple episodes of vomiting and some diarrhea, so then the patient came to [facility] and admitted for further evaluation and treatment. The blood pressure was found to be low in the emergency room. The patient also has a history of gastroparesis. The patient received IV fluids and the patient was admitted for further evaluation and treatment. Lactic acid was also high, elevated at 2.6, possibly secondary dehydration. There is no history of fever, rigors. No history of headaches loss of conscious or seizures. PAST MEDICAL HISTORY: History of CVA, TIA, CHF, history of diabetes, GERD, hypertension, hyperlipidemia. MEDICATIONS PRIOR TO ADMISSION: Include home medications are: 1. Metformin 1000 mg p.o. b.i.d. 2. Zoloft 200 mg daily. 3. Rosuvastatin 40 mg q.h.s. 4. Ranexa 1000 mg p.o. b.i.d. 5. Ranitidine 300 mg p.o. daily. 7. Effient 110 mg p.o. daily. 8. Prilosec 40 mg q.h.s. 9. Nitrostat 0.4 sublingual p.r.n. 10.Metoprolol 50 mg p.o. b.i.d. 11.Imodium 2 mg p.o. t.i.d. 12.Zestril 2.5 mg daily. 13.Tradjenta 5 mg q.h.s. 14.Glimepiride 4 mg p.o. b.i.d. 15.Neurontin 300 mg p.o. t.i.d. 16.Trulicity 1.5 mg subcu Thursday. 17.Cipro 500 mg p.o. b.i.d. 18.Vitamin D3 2000. 19.Ecotrin 81 mg. 20.Ventolin HFA 1 to 2 puffs daily q.i.d. p.r.n. 21.Abilify 50 mg p.o. q.h.s. ALLERGIES: ERYTHROMYCIN, CODEINE, MECLIZINE, PENICILLIN, SHELLFISH, FISH, IODINATED CONTRAST, CEPHALEXIN, NAPROXEN, ATORVASTATIN AND NORCO. FAMILY HISTORY: History of CAD, myocardial infarction cardiac valvular disease. SOCIAL HISTORY: No history of smoking. No history of alcohol. REVIEW OF SYSTEMS: ENT: No diminished hearing. No diminished vision. CARDIOVASCULAR: As mentioned earlier. RESPIRATORY: As mentioned earlier. GI: As mentioned earlier. : No dysuria, retention. NERVOUS: No numbness weakness. ALLERGY/IMMUNOLOGY: No asthma or hay fever. MUSCULOSKELETAL: As mentioned earlier. HEMATOLOGY/ONCOLOGY: No history of anemia. ENDOCRINE: As mentioned earlier. CONSTITUTIONAL: As mentioned earlier. DERMATOLOGY: Negative. RHEUMATOLOGY: Negative. PSYCHIATRY: As mentioned earlier. PHYSICAL EXAMINATION: Alert and oriented x3. Pulse 87, blood pressure 92/55, respirations 18, temperature 97.6, pulse ox 98% on 2L. HEENT: Conjunctivae normal. Oral mucosa moist. NECK: No jugular venous distention. No carotid bruits. No lymph node enlargement. CARDIOVASCULAR SYSTEM: S1, S2 muffled. No S3. No murmur. RESPIRATORY: Breath sounds diminished in the bases. No rhonchi. No crackles. ABDOMEN: Soft, obese, nontender. No mass palpable. LEGS: No edema. No swelling. NERVOUS SYSTEM: Higher functions as mentioned earlier. Moves all 4 limbs. No focal motor or sensory deficits. LYMPHATIC: No lymphadenopathy in neck or axillae. SKIN: No ulcer, rash or bleeding. LABS: WBC 6.8, hemoglobin was 13.7. Sodium 134, Potassium 5.3. ASSESSMENT: 1. Dehydration secondary to nausea, vomiting and hypotension secondary to dehydration. 2. Cardiomyopathy. 3. Diabetes mellitus type 2. 4. Lactic acidosis secondary to dehydration. 5. Increased creatinine with acute kidney failure, prerenal acute tubular necrosis. 6. History of cardiomyopathy. 7. History of coronary artery disease. 8. History of congestive heart failure. 9. History of gastroesophageal reflux disease. 10.Hypertension. 11.Hyperlipidemia. 12.History of pneumonia. 13.History of diabetic polyneuropathy. 14.History of gastroparesis. 15.History of coronary artery disease, stent. RECOMMENDATIONS AND DISCUSSION: In this 41-year-old gentleman who presented with multiple complex medical issues , we will monitor the patient closely. Continue the current management and symptomatic treatment. Patient has received IV fluids. As mentioned earlier, blood pressure is improving. Patient is symptomatically feeling better as well. I would also recommend IV Protonix and I would also recommend closely monitor with Cardiology. Monitor blood sugars closely. Hold diuretics for now. Guarded prognosis because of multiple complex medical issues. A chest x-ray was done in the ER which showed no evidence of any acute CHF currently. Once again, the prognosis is guarded. See orders for details. H2 blockers and as well as DVT prophylaxis. Further recommendations to follow. Discussed with the patient, who understands and agrees. MMODL / IJN: [id number] / ARMAND
[2017-02-15] MEDS: MAGNESIUM SULFATE-D5W PMX 1 GM in DEXTROSE/WATER 1 100ML.BAG IVPB SCH (01:00)
[2017-02-15 05:37] LABS: Basophils % (A) 1 %; CHCM 31.7; Eosinophils # (A) 0.2 k/uL (0-0.7); Eosinophils % (A) 4 %; HCT 38.4 % (39.0-53.0); HDW 2.81; Hypochromasia Slight; Luc # (Auto) 0.13; Luc % (Auto) 3; Lymphocytes # (A) 1.6 k/uL (1.0-4.8); Lymphocytes % (A) 35 %; MCH 26.7 pg (25.0-35.0); MCHC 31.3 g/dL (31.0-37.0); MCV 85.5 fL (80.0-100.0); Mean Platelet Volume 7.2; Monocytes # (A) 0.3 k/uL (0-1.0); Monocytes % (A) 7 %; Neutrophils # (A) 2.3 k/uL (1.3-7.7); Neutrophils % (A) 50 %; RBC 4.49 m/uL (4.30-5.90); RDW 15.7 % (11.5-15.5); WBC 4.5 k/uL (3.8-10.6)
[2017-02-15 06:06] LABS: Calcium 8.9 mg/dL (8.4-10.2); Magnesium 2.3 mg/dL (1.6-2.3); Potassium 4.8 mmol/L (3.5-5.1); Total Bilirubin 0.3 mg/dL (0.2-1.3); Total Protein 5.9 g/dL (6.3-8.2)
[2017-02-15 07:03] LABS: Glucose,Whole Blood 85 mg/dL (75-99)
[2017-02-15] MEDS ORDERED: PANTOPRAZOLE 40 MG TABLET PO SCH (07:30)
[2017-02-15] MEDS: GLIMEPIRIDE 4 MG TAB PO SCH ×2 (07:56→17:50)
[2017-02-15] MEDS: ASPIRIN 81 MG PO SCH (07:57)
[2017-02-15] MEDS: CIPROFLOXACIN HCL 500 MG TAB PO SCH ×2 (07:57→20:04)
[2017-02-15] MEDS: LOPERAMIDE 2 MG CAP PO SCH ×3 (07:58→21:38)
[2017-02-15] MEDS: GABAPENTIN 300 MG CAP PO SCH ×5 (07:58→21:38)
[2017-02-15] MEDS: HEPARIN SODIUM,PORCINE 5,000 UNIT/ML 1 ML VIAL SQ SCH ×2 (07:59→20:04)
[2017-02-15] MEDS: PANTOPRAZOLE 40 MG/10 ML VIAL IVP SCH ×2 (07:59→20:05)
[2017-02-15] MEDS: metFORMIN 500 MG TAB PO SCH ×2 (07:59→20:04)
[2017-02-15] MEDS: PRASUGREL 10 MG TAB PO SCH (08:00)
[2017-02-15] MEDS: RANOLAZINE 500 MG TAB.ER.12H PO SCH ×2 (08:00→20:05)
[2017-02-15] MEDS: SERTRALINE 100 MG TAB PO SCH (08:01)
[2017-02-15] MEDS: INSULIN LISPRO (humaLOG) 300 UNIT/3 ML VIAL SQ SCH ×4 (08:07→20:04)
[2017-02-15 11:44] LABS: Glucose,Whole Blood 182 mg/dL (75-99)
[2017-02-15] MEDS ORDERED: LISINOPRIL 2.5 MG TAB PO SCH (12:00)
[2017-02-15] MEDS: CHOLECALCIFEROL 1,000 UNIT TAB PO SCH (12:16)
[2017-02-15] MEDS: METOPROLOL TARTRATE 50 MG TAB PO SCH ×2 (12:25→20:17)
[2017-02-15] MEDS ORDERED: LISINOPRIL 5 MG TAB PO SCH (16:30)
--- NOTE | 2017-02-15 16:37 | P.CRDCN ---
History of Present Illness Consult date: 02/15/17 Chief complaint: Dizziness and lightheadedness History of present illness: This is a 41-year-old gentleman who sees a spanish moss picker out of the town at [place] with a past medical history significant for severe underlying CAD and prior stenting of the left circumflex and LAD, severely uncontrolled diabetes, hypertension, dyslipidemia, and history of noncompliance with medications, presented to the hospital complaining of dizziness and lightheadedness and not feeling well. The patient is also known to have severe cardiomyopathy and he has AICD. He was in his usual state of health when he was at a republican and suddenly he felt dizzy and lightheaded and felt weak. The patient did not lose his consciousness. He does not recall having any chest pain or chest discomfort or difficulty breathing or heart racing or fluttering. He stated that he was experiencing intermittent episodes of diarrhea as well as some nausea and vomiting over the last few days but it has been better lately. The EKG showed atrial sensed ventricular paced rhythm. The first set of cardiac enzymes came in to be unremarkable and we don't have the results of the serial cardiac enzymes. The patient has been maintaining normal sinus mechanism. The blood pressure in the hospital seems to be not well-controlled. Past Medical History Past Medical History: Coronary Artery Disease (CAD), Chest Pain / Angina, Heart Failure, CVA/TIA, Diabetes Mellitus, GERD/Reflux, Hyperlipidemia, Hypertension, Myocardial Infarction (NE), Osteoarthritis (OA), Pneumonia, Skin Disorder, Sleep Apnea/CPAP/BIPAP Additional Past Medical History / Comment(s): HX: Coronary artery disease with multiple vessel disease, ischemic cardiomyopathy, diabetic neuropathy bilateral hands and feet, hypertension hypertensive cardiovascular disease, chronic gastritis, chronic back pain, depression with hx of suicide attempts, GASTROPARESIS, PSORIASES,NIDDM type II. Last Myocardial Infarction Date:: 06/03/16 per pt. 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 Past Anesthesia/Blood Transfusion Reactions: No Reported Reaction Additional Past Anesthesia/Blood Transfusion Reaction / Comment(s): . Date of Last Stent Placement:: 06/03/16 Type of Cardiac Device: Biventricular Pacemaker, AICD Device Placement Date:: 09/19/15 Past Psychological History: Anxiety, Depression, PTSD Additional Psychological History / Comment(s): Several suicide attempts with use of insulin. PTSD- IN 2000- HIS 3 MONTH OLD SON IN HIS ARMS(CHILD WAS BORN 2 MONTHS PREMATURE). Pt states his depression is stable at this time and does not have any suicidal thoughts or plans. He is independent. PT ON DISABILTY MULTIFACTORIAL PER PT. Smoking Status: Never smoker Past Alcohol Use History: Occasional Additional Past Alcohol Use History / Comment(s): pt states he stopped drinking six years ago. Past Drug Use History: Marijuana Additional Drug Use History / Comment(s): NONE IN 15 YEARS (past alcoholic, but drinks occassionally per pt), has smoked marijuana last smoked in 1999 - Past Family History Mother Family Medical History: Coronary Artery Disease (CAD), Myocardial Infarction (NE ) Additional Family Medical History / Comment(s): 7 NE and faulty heart valve. Pt does not know the age when mother had her MIs. Father History Unknown: Yes Additional Family Medical History / Comment(s): Does not know who father is Brother(s) Family Medical History: Congestive Heart Failure (CHF), Myocardial Infarction ( NE) Additional Family Medical History / Comment(s): Parkinsons. Pt does not know at what age his brother had a NE Patient has Family Medical History: No Reported History Additional Family Medical History / Comment(s): There is a strong family history for heart disease, hypertension, and diabetes. Medications and Allergies Home Medications Medication Instructions Recorded Confirmed Type Nitroglycerin Sl Tabs [Nitrostat] 0.4 mg SUBLINGUAL Q5M PRN 10/13/13 02/14/17 History metFORMIN HCL 1,000 mg PO BID 07/03/15 02/14/17 History Omeprazole [PriLOSEC] 40 mg PO HS 08/13/15 02/14/17 History Dulaglutide [Trulicity] 1.5 mg SQ OROZCO 03/10/16 02/14/17 History Glimepiride 4 mg PO BID 03/10/16 02/14/17 History Rosuvastatin Calcium 40 mg PO HS 05/05/16 02/14/17 History Lisinopril [Zestril] 2.5 mg PO DAILY 06/01/16 02/14/17 History Gabapentin [Neurontin] 300 mg PO TID 06/09/16 02/14/17 History Ranolazine [Ranexa] 1,000 mg PO BID 06/09/16 02/14/17 History Primidone [Mysoline] 100 mg PO HS 06/30/16 02/14/17 History Prasugrel [Effient] 10 mg PO DAILY tab 07/01/16 02/14/17 Rx Loperamide [Imodium] 2 mg PO TID 10/20/16 02/14/17 History Metoprolol Tartrate 50 mg PO BID 10/20/16 02/14/17 History Aspirin EC [Ecotrin Low Dose] 81 mg PO DAILY 11/07/16 02/14/17 History Cholecalciferol (Vitamin D3) 2,000 unit PO DAILY 11/07/16 02/14/17 History [Vitamin D3] Linagliptin [Tradjenta] 5 mg PO HS 12/19/16 02/14/17 History Sertraline HCl [Zoloft] 200 mg PO DAILY #28 01/27/17 02/14/17 Rx ARIPiprazole [ARIPiprazole Odt] 15 mg PO HS 02/14/17 02/14/17 History Albuterol Inhaler [Ventolin Hfa 1 - 2 puff INHALATION RT-QID PRN 02/14/17 History Inhaler] Ciprofloxacin HCl [Cipro] 500 mg PO BID 02/14/17 02/14/17 History Ranitidine HCl 300 mg PO DAILY 02/14/17 02/14/17 History Allergies Allergy/AdvReac Type Severity Reaction Status Date / Time erythromycin base Allergy Severe Swelling Verified 02/14/17 14:55 [Erythromycin Base] codeine Allergy Unknown Swelling Verified 02/14/17 14:55 meclizine Allergy Unknown Unknown Verified 02/14/17 14:55 Penicillins Allergy Unknown Rash/Hives Verified 02/14/17 14:55 shellfish derived Allergy Unknown Anaphylaxis Verified 02/14/17 14:55 Fish Containing Products Allergy Anaphylaxis Verified 02/14/17 14:55 [Fish] Iodinated Contrast- Oral and Allergy Anaphylaxis Verified 02/14/17 14:55 IV Dye cephalexin monohydrate AdvReac Unknown Nausea & Verified 02/14/17 14:55 [From Keflex] Vomiting naproxen AdvReac Unknown Compromises Verified 02/14/17 14:55 Kidney Function atorvastatin calcium AdvReac Myalgia Verified 02/14/17 14:55 [From Lipitor] hydrocodone [From [place]] AdvReac Rapid Verified 02/14/17 14:55 Heart Rate Physical Exam Vitals: Vital Signs Temp Pulse Pulse Resp BP BP Pulse Ox 02/15/17 16:00 97.4 F L 80 21 156/85 97 02/15/17 15:39 67 21 02/15/17 15:00 83 21 174/83 100 02/15/17 14:00 86 24 163/76 99 02/15/17 13:00 83 13 183/108 98 02/15/17 12:00 98 F 82 67 15 163/85 98 02/15/17 11:00 85 17 169/87 98 02/15/17 10:30 88 20 168/83 94 L 02/15/17 10:00 89 21 162/85 75 L 02/15/17 09:45 87 15 162/85 76 L 02/15/17 09:30 91 18 140/73 100 02/15/17 09:15 87 26 H 140/73 98 02/15/17 09:00 83 27 H 145/81 85 L 02/15/17 08:15 80 15 134/66 93 L 02/15/17 08:00 97.6 F 77 67 13 146/70 97 02/15/17 04:00 74 67 37 H 128/48 90 L 02/15/17 03:30 73 16 115/64 100 02/15/17 03:00 73 24 112/63 99 02/15/17 02:30 66 14 110/62 100 02/15/17 02:00 70 18 120/63 97 02/15/17 01:30 73 16 115/78 99 02/15/17 01:00 73 17 93/66 99 02/15/17 00:30 73 19 111/71 100 02/15/17 00:00 73 15 113/62 99 02/14/17 23:59 74 67 16 113/62 98 02/14/17 23:30 73 20 111/69 99 02/14/17 23:00 70 22 129/71 96 02/14/17 22:30 78 18 117/67 99 02/14/17 22:00 75 25 H 129/66 100 02/14/17 21:30 69 20 114/71 99 02/14/17 21:00 68 18 92/67 99 02/14/17 20:52 15 02/14/17 20:30 71 18 112/67 100 02/14/17 20:00 68 15 96/54 100 02/14/17 19:37 97.6 F 71 67 16 98/65 02/14/17 18:26 72 96/54 02/14/17 18:11 87 18 92/50 98 02/14/17 17:46 70 92/55 02/14/17 17:26 68 97/52 02/14/17 17:06 68 97/50 02/14/17 16:55 70 18 91/50 98 Intake and Output 02/15/17 02/15/17 02/15/17 06:59 14:59 22:59 Intake Total 100 350 0 Output Total 800 1800 675 Balance -700 -6991 -675 Intake: IV 100 100 0 Sodium Chloride 0.9% 1, 100 100 0 000 ml @ 100 mls/hr IV . Q10H [facility] Rx#:[id number] Oral 250 Output: Urine 800 1800 675 Other: Voiding Method Toilet Urinal Urinal Urinal Weight 117.1 kg - Constitutional General appearance: no acute distress - Respiratory Respiratory: bilateral: CTA - Cardiovascular Rhythm: regular Heart sounds: normal: S1, S2 Results 02/15/17 05:21 02/15/17 05:21 Cardiac Enzymes 02/15/17 Range/Units 05:21 AST 21 (17-59) U/L CBC 02/15/17 Range/Units 05:21 WBC 4.5 (3.8-10.6) k/uL RBC 4.49 (4.30-5.90) m/uL Hgb 12.0 L (13.0-17.5) gm/dL Hct 38.4 L (39.0-53.0) % Plt Count 211 (150-450) k/uL Comprehensive Metabolic Panel 02/15/17 Range/Units 05:21 Sodium 138 (137-145) mmol/L Potassium 4.8 (3.5-5.1) mmol/L Chloride 107 (98-107) mmol/L Carbon Dioxide 21 L (22-30) mmol/L BUN 32 H (9-20) mg/dL Creatinine 1.60 H (0.66-1.25) mg/dL Glucose 68 L (74-99) mg/dL Calcium 8.9 (8.4-10.2) mg/dL AST 21 (17-59) U/L ALT 35 (21-72) U/L Alkaline Phosphatase 95 (38-126) U/L Total Protein 5.9 L (6.3-8.2) g/dL Albumin 3.4 L (3.5-5.0) g/dL Current Medications Generic Name Dose Route Start Last Admin Trade Name Freq PRN Reason Stop Dose Admin Acetaminophen 650 mg 02/14/17 15:52 Tylenol Tab PO Q6HR PRN Mild Pain or Fever > 100.5 Albuterol Sulfate 2.5 mg 02/14/17 20:14 Ventolin Nebulized INHALATION RT-QID PRN Shortness Of Breath Alprazolam 0.25 mg 02/14/17 20:13 Xanax PO TID PRN Anxiety Aripiprazole 15 mg 02/14/17 21:00 02/14/17 21:36 Abilify PO 15 mg HS JAKE Administration Aspirin 81 mg 02/15/17 09:00 02/15/17 07:57 Aspirin PO 81 mg DAILY JAKE Administration Cholecalciferol 2,000 unit 02/15/17 12:00 02/15/17 12:16 Vitamin D3 PO 2,000 unit 1200 JAKE Administration Ciprofloxacin 500 mg 02/14/17 21:00 02/15/17 07:57 Cipro PO 02/17/17 21:01 500 mg BID JAKE Administration Gabapentin 300 mg 02/14/17 22:00 02/15/17 15:49 Neurontin PO 300 mg TID JAKE Administration Glimepiride 4 mg 02/15/17 07:30 02/15/17 07:56 Amaryl PO 4 mg AC-BID JAKE Administration Heparin Sodium (Porcine) 5,000 unit 02/14/17 21:00 02/15/17 07:59 Heparin SQ 5,000 unit Q12HR JAKE Administration Insulin Human Lispro 0 unit 02/14/17 21:00 02/15/17 12:16 Humalog SQ 3 unit ACHS JAKE Administration Protocol Linagliptin 5 mg 02/14/17 21:00 02/14/17 21:37 Tradjenta PO 5 mg HS JAKE Administration Lisinopril 5 mg 02/15/17 16:30 Zestril PO DAILY JAKE Loperamide HCl 2 mg 02/14/17 22:00 02/15/17 15:49 Imodium PO 2 mg TID JAKE Administration Metformin HCl 1,000 mg 02/14/17 21:00 02/15/17 07:59 Glucophage PO 1,000 mg BID JAKE Administration Metoprolol Tartrate 50 mg 02/15/17 12:00 02/15/17 12:25 Lopressor PO 50 mg BID JAKE Administration Miscellaneous Information 1 each 02/14/17 19:52 Magnesium Per Protocol MISCELLANE DAILY PRN Per Protocol Protocol Naloxone HCl 0.2 mg 02/14/17 15:52 Narcan IV Q2M PRN Opioid Reversal Nitroglycerin 0.4 mg 02/14/17 20:14 Nitrostat SUBLINGUAL Q5M PRN Chest Pain Non-Formulary Medication 1.5 mg 02/15/17 20:14 Dulaglutide [Trulicity] SQ OROZCO JAKE Non-Formulary Medication 40 mg 02/14/17 21:00 Rosuvastatin Calcium [Rosuvastatin Calcium] PO HS JAKE Ondansetron HCl 4 mg 02/14/17 15:52 Zofran IVP Q8HR PRN Nausea And Vomiting Pantoprazole Sodium 40 mg 02/14/17 21:00 02/15/17 07:59 Protonix IVP 40 mg BID JAKE Administration Prasugrel 10 mg 02/15/17 09:00 02/15/17 08:00 Effient PO 10 mg DAILY JAKE Administration Primidone 100 mg 02/14/17 21:00 02/14/17 20:11 Mysoline PO 100 mg HS JAKE Administration Ranolazine 1,000 mg 02/14/17 21:00 02/15/17 08:00 Ranexa PO 1,000 mg BID JAKE Administration Sertraline HCl 200 mg 02/15/17 09:00 02/15/17 08:01 Zoloft PO 200 mg DAILY JAKE Administration Temazepam 15 mg 02/14/17 20:13 Restoril PO HS PRN Insomnia Intake and Output 02/15/17 02/15/17 02/15/17 06:59 14:59 22:59 Intake Total 100 350 0 Output Total 800 1800 675 Balance -700 -3417 -385 Intake: IV 100 100 0 Sodium Chloride 0.9% 1, 100 100 0 000 ml @ 100 mls/hr IV . Q10H [facility] Rx#:[id number] Oral 250 Output: Urine 800 1800 675 Other: Voiding Method Toilet Urinal Urinal Urinal Weight 117.1 kg 02/15/17 05:21 02/15/17 05:21 Assessment and Plan Plan: This is a pleasant 41-year-old gentleman with a known history of CAD and prior stenting of the left circumflex and LAD, severe ischemic cardiomyopathy and status post AICD, hypertension, dyslipidemia was admitted to the hospital was weakness associated with dizziness and lightheadedness. The blood pressure seems to be not well-controlled. The patient has been maintaining normal sinus mechanism. Maintaining normal heart rate. The last echocardiogram was performed in December 2016 and that showed severe cardiomyopathy. I am going to increase the dose of lisinopril to 5 mg by mouth daily for better blood pressure control. Follow-up with the serial cardiac enzymes to rule out any acute coronary event. Continue the dual antiplatelet therapy and statin. Continue following up with the patient.
--- NOTE | 2017-02-15 16:45 | PN ---
PROGRESS NOTE DATE OF SERVICE: 02/15/2017 INTERVAL HISTORY: This 41-year-old gentleman admitted with significant hypotension and dehydration and multiple medical problems, being closely monitored. Patient with nausea, vomiting, diarrhea and cardiomyopathy also. The blood pressure is improving at this time. Patient is still on IV fluids. PAST MEDICAL HISTORY: Reviewed. REVIEW OF SYSTEMS: Cardio system: No angina or palpitations. Respiration as mentioned earlier. GI : As mentioned earlier. : No dysuria. Central nervous system: No numbness, weakness. CURRENT MEDICATIONS: Reviewed and include: 1. Tylenol 650 q.6h p.r.n. 2. Ventolin 2.5 q.i.d. and p.r.n. 3. Xanax 0.5 b.i.d. 4. Abilify 15 mg q.h.s. 5. Aspirin 81 mg. 6. Vitamin D3 2000 daily. 7. Cipro 500 mg p.o. b.i.d. 8. Neurontin 300 mg p.o. t.i.d. 9. Amaryl 4 mg a.c. b.i.d. 10.Heparin 500 units subcu b.i.d. 12.Zestril 2.5. 13.Imodium. 14.Lopressor. 15.Narcan. 16.Nitrostat. 17.Zofran. 18.Mysoline. 19.Zoloft. 20.Doses reviewed. PHYSICAL EXAMINATION: The patient is alert, oriented x3. Pulse 82, blood pressure 163/85. Respirations 18, temp 98 degrees, pulse ox 98% on 2 L. HEENT is conjunctivae normal. Oral mucosa moist. Neck is no jugular venous distention. No carotid bruit. No lymph nodes enlargement. Cardiovascular system: S1, S2 muffled. Respiratory: Breath sounds diminished in the bases. A few scattered rhonchi. No crackles. Abdomen is soft , nontender. No mass palpable. Legs: No edema. No swelling. Nervous system: Higher functions as mentioned earlier. Moves all four limbs. No focal deficits. Lymphatics: No lymph nodes palpable in the neck, axillae or groin. Skin no ulcer, rash, bleeding. LABS: At this time shows WBC 4.2, hemoglobin is 12, sodium 138, potassium 4.8, creatinine 1.6. ASSESSMENT: 1. Dehydration secondary to nausea vomiting and hypotension secondary to dehydration. 2. Cardiomyopathy. 3. Diabetes mellitus type 2. 4. Lactic acidosis secondary to dehydration present on admission. 5. Increased creatinine with acute kidney failure prerenal acute tubular necrosis. 6. History of cardiomyopathy. 7. History of coronary artery disease. 8. History of congestive heart failure. 9. Gastroesophageal reflux disease. 10.Hypertension. 11.Hyperlipidemia. 12.History pneumonia. 13.History of diabetic polyneuropathy. 14.History of gastroparesis. 15.Coronary artery disease, stent. RECOMMENDATIONS AND DISCUSSION: Recommend to continue current management. Monitor and symptomatic treatment. Otherwise at this time, I would recommend resume the antihypertensive medications. Cardiology consultation. AICD interrogation. Orthostatic vitals. Repeat labs. Prognosis guarded because of multiple complex medical issues. Further recommendations to follow. MMARABELLA / CHRISTINEN: [id number] / MTDD
[2017-02-15] MEDS: SODIUM CHLORIDE 0.9% 1,000 ML IV SCH (17:31)
[2017-02-15 17:41] LABS: Glucose,Whole Blood 104 mg/dL (75-99)
[2017-02-15] MEDS: ARIPiprazole 15 MG TAB PO SCH (20:03)
[2017-02-15 20:04] LABS: Glucose,Whole Blood 140 mg/dL (75-99)
[2017-02-15] MEDS: LINAGLIPTIN 5 MG TABLET PO SCH (20:04)
[2017-02-15] MEDS: PRIMIDONE 50 MG TAB PO SCH (20:05)
[2017-02-15] MEDS ORDERED: NON-FORMULARY DRUG (Dulaglutide [Trulicity] 1.5 MG) SQ SCH (20:14)
[2017-02-16 04:51] LABS: Basophils % (A) 1 %; CH 26.7; CHCM 31.8; Eosinophils # (A) 0.3 k/uL (0-0.7); Eosinophils % (A) 4 %; HCT 36.3 % (39.0-53.0); HDW 2.98; HGB 11.8 gm/dL (13.0-17.5); Hypochromasia Slight; Immature Gran Flag Slight; Luc % (Auto) 2; Lymphocytes # (A) 1.2 k/uL (1.0-4.8); Lymphocytes % (A) 20 %; MCH 27.4 pg (25.0-35.0); MCHC 32.5 g/dL (31.0-37.0); MCV 84.3 fL (80.0-100.0); Mean Platelet Volume 6.9; Monocytes # (A) 0.3 k/uL (0-1.0); Monocytes % (A) 4 %; Neutrophils # (A) 4.3 k/uL (1.3-7.7); Neutrophils % (A) 70 %; RDW 15.3 % (11.5-15.5); WBC 6.2 k/uL (3.8-10.6); WBC (Perox) 6.26
[2017-02-16 05:30] LABS: Manual Review Performed
[2017-02-16 07:28] LABS: Glucose,Whole Blood 72 mg/dL (75-99)
[2017-02-16 07:37] LABS: Anion Gap 7 mmol/L; Blood Urea Nitrogen 21 mg/dL (9-20); Calcium 9.1 mg/dL (8.4-10.2); Carbon Dioxide 19 mmol/L (22-30); Chloride 114 mmol/L (98-107); Glucose 74 mg/dL (74-99); Non-African American GFR(MDRD) >60 (>60 ml/min/1.73 sqM); Sodium 140 mmol/L (137-145)
[2017-02-16] MEDS: PANTOPRAZOLE 40 MG/10 ML VIAL IVP SCH ×2 (07:49→20:31)
[2017-02-16] MEDS: RANOLAZINE 500 MG TAB.ER.12H PO SCH ×2 (07:49→20:31)
[2017-02-16] MEDS: METOPROLOL TARTRATE 50 MG TAB PO SCH ×2 (07:50→20:31)
[2017-02-16] MEDS: ASPIRIN 81 MG PO SCH (07:50)
[2017-02-16 07:51] LABS: Potassium 6.1 mmol/L (3.5-5.1)
[2017-02-16] MEDS: HEPARIN SODIUM,PORCINE 5,000 UNIT/ML 1 ML VIAL SQ SCH ×2 (07:51→20:30)
[2017-02-16] MEDS: CIPROFLOXACIN HCL 500 MG TAB PO SCH ×2 (07:51→20:30)
[2017-02-16] MEDS: GLIMEPIRIDE 4 MG TAB PO SCH ×2 (07:51→17:49)
[2017-02-16] MEDS: GABAPENTIN 300 MG CAP PO SCH ×3 (07:51→21:41)
[2017-02-16] MEDS: metFORMIN 500 MG TAB PO SCH ×2 (07:52→20:30)
[2017-02-16] MEDS: PRASUGREL 10 MG TAB PO SCH (07:52)
[2017-02-16] MEDS: SERTRALINE 100 MG TAB PO SCH (07:52)
[2017-02-16] MEDS: LOPERAMIDE 2 MG CAP PO SCH ×3 (07:52→21:41)
--- NOTE | 2017-02-16 09:02 | P.PN ---
Subjective Principal diagnosis: Dizziness and lightheadedness This is a 41-year-old gentleman who sees a brand representative out of the town at [place] with a past medical history significant for severe underlying CAD and prior stenting of the left circumflex and LAD, severely uncontrolled diabetes, hypertension, dyslipidemia, and history of noncompliance with medications, presented to the hospital complaining of dizziness and lightheadedness and not feeling well. The patient is also known to have severe cardiomyopathy and he has AICD. He was in his usual state of health when he was at a libertarian and suddenly he felt dizzy and lightheaded and felt weak. The patient did not lose his consciousness. He does not recall having any chest pain or chest discomfort or difficulty breathing or heart racing or fluttering. He stated that he was experiencing intermittent episodes of diarrhea as well as some nausea and vomiting over the last few days but it has been better lately. The EKG showed atrial sensed ventricular paced rhythm. The first set of cardiac enzymes came in to be unremarkable and we don't have the results of the serial cardiac enzymes. The patient has been maintaining normal sinus mechanism. The blood pressure in the hospital seems to be not well-controlled when he presented to the hospital but currently the pressure seems to be well- controlled. On follow-up with the patient today, he continues to be asymptomatic from the cardiovascular standpoint of view. I suggested the patient to get up and around. He can be transferred to selective unit and discharged home in 4 hours. Objective - Vital Signs Vital signs: Vital Signs Temp 97.9 F 02/16/17 04:00 Pulse 80 02/16/17 04:00 Resp 18 02/16/17 04:00 BP 138/64 02/16/17 04:00 Pulse Ox 100 02/16/17 04:00 Intake & Output 02/15/17 02/16/17 02/16/17 18:59 06:59 18:59 Intake Total 350 Output Total 2475 700 Balance -2124 Weight 117.3 kg Intake: IV 100 Sodium Chloride 0.9% 1, 100 000 ml @ 100 mls/hr IV . Q10H [facility] Rx#:[id number] Oral 250 Output: Urine 2475 700 Other: Voiding Method Urinal Urinal - Constitutional General appearance: Present: no acute distress - Respiratory Respiratory: bilateral: CTA - Cardiovascular Rhythm: regular Heart sounds: normal: S1, S2 - Labs CBC & Chem 7: 02/16/17 04:07 02/16/17 06:58 Labs: Abnormal Lab Results - Last 24 Hours (Table) 02/15/17 02/15/17 02/15/17 Range/Units 11:42 17:39 20:02 Hgb (13.0-17.5) gm/dL Hct (39.0-53.0) % Potassium (3.5-5.1) mmol/L Chloride (98-107) mmol/L Carbon Dioxide (22-30) mmol/L BUN (9-20) mg/dL POC Glucose (mg/dL) 182 H 104 H 140 H (75-99) mg/dL 02/16/17 02/16/17 02/16/17 Range/Units 04:07 06:58 07:26 Hgb 11.8 L (13.0-17.5) gm/dL Hct 36.3 L (39.0-53.0) % Potassium 6.1 H (3.5-5.1) mmol/L Chloride 114 H (98-107) mmol/L Carbon Dioxide 19 L (22-30) mmol/L BUN 21 H (9-20) mg/dL POC Glucose (mg/dL) 72 L (75-99) mg/dL Microbiology - Last 24 Hours (Table) 02/14/17 15:17 Urine Culture - Final Urine,Voided 02/14/17 14:24 Blood Culture - Preliminary Blood No Growth after 24 hours Assessment and Plan Plan: This is a pleasant 41-year-old gentleman with a known history of CAD and prior stenting of the left circumflex and LAD, severe ischemic cardiomyopathy and status post AICD, hypertension, dyslipidemia was admitted to the hospital was weakness associated with dizziness and lightheadedness. The blood pressure seems to be not well-controlled. The patient has been maintaining normal sinus mechanism. Maintaining normal heart rate. The last echocardiogram was performed in December 2016 and that showed severe cardiomyopathy. The patient has been asymptomatic from a cardiovascular standpoint overview. I recommended the patient to get up and around and transferred to selective floor for possible discharge in 4 hours.
[2017-02-16 11:59] LABS: Glucose,Whole Blood 128 mg/dL (75-99)
[2017-02-16] MEDS: INSULIN LISPRO (humaLOG) 300 UNIT/3 ML VIAL SQ SCH ×3 (12:54→20:30)
[2017-02-16] MEDS: CHOLECALCIFEROL 1,000 UNIT TAB PO SCH (14:00)
[2017-02-16] MEDS ORDERED: SODIUM POLYSTYRENE SULFONATE 15 GM/60 ML BOTTLE PO STA (16:19)
--- NOTE | 2017-02-16 16:38 | XR ---
EXAMINATION TYPE: XR chest 1V portable DATE OF EXAM: 02/16/2017 Comparison: 02/14/2017 Clinical History: 41-year-old male with CHF Findings: Left anterior chest wall AICD generator with right atrial, right ventricular, and coronary sinus lead s. Heart is borderline to mildly enlarged. Mild interstitial prominence has a chronic appearance. No consolidation or pleural effusion. Impression: Borderline to mild mild cardiomegaly. No eva CHF.
[2017-02-16 17:49] LABS: Glucose,Whole Blood 158 mg/dL (75-99)
--- NOTE | 2017-02-16 19:28 | PN ---
PROGRESS NOTE DATE OF SERVICE: 02/16/2017 This 41-year-old gentleman who was admitted with hypotension and dehydration as well as multiple medical problems, including significant cardiomyopathy, AICD, is being closely monitored. Blood pressure is improving at this time; however, the patient still has elevated blood pressures. Cardiology, Dr. Dewey, is following the patient. The patient is being closely monitored at this time. There is no history of any fever, rigors or chills. Medication is being adjusted. Past medical history reviewed. REVIEW OF SYSTEMS: CARDIOVASCULAR SYSTEM: As mentioned earlier. RESPIRATORY SYSTEM: As mentioned earlier. GI: No nausea, vomiting. : No dysuria or retention. NERVOUS SYSTEM: No numbness, weakness. CURRENT MEDICATIONS: Current medications are reviewed and include: 1. Tylenol 650 q.6 p.r.n. 2. Ventolin 2.5 q.6 p.r.n. 3. Xanax 0.25 t.i.d. 4. Abilify 15 mg at bedtime. 5. Aspirin 81 mg daily. 6. Vitamin D3 2000 daily. 7. Cipro 500 mg p.o. b.i.d. 8. Neurontin 300 mg p.o. t.i.d. 9. Amaryl 4 mg p.o. b.i.d. 10.Heparin 5000 units subcutaneously b.i.d. 11.Humalog scale. 12.Tradjenta 5 mg p.o. at bedtime. 13.Zestril 5 mg p.o. daily. 14.Imodium 2 mg p.o. t.i.d. 15.Glucophage 1000 mg p.o. b.i.d. 16.Lopressor 50 mg p.o. b.i.d. 17.Magnesium. 18.Narcan. 19.Nitrostat. 20.Zofran. 21.Protonix. 22.Effient. 23.Mysoline. 24.Ranexa. 25.Zoloft. 26.Restoril. PHYSICAL EXAM: Patient is alert, oriented x3. Pulse is 75, blood pressure 139/60, respiration 15, temperature 98.4, pulse ox 99% on room air. NECK: No jugular venous distention. No carotid bruit. No lymph node enlargement. No thyroid enlargement. CARDIOVASCULAR: S1, S2 muffled. No S3. No S4. RESPIRATORY: Breath sounds diminished at the bases. A few bilateral scattered rhonchi and crackles. Expiratory wheezing also present. ABDOMEN: Soft, obese, nontender. LEGS: Bilateral leg edema. NERVOUS SYSTEM: Higher functions as mentioned earlier. Moves all 4 limbs. No focal motor or sensory deficit. LYMPHATICS: No lymph node palpable in neck, axillae or groin. SKIN: No ulcer, rash, bleeding. LABS AT THIS TIME: Hemoglobin 11.8, sodium 140, potassium 6.1. ASSESSMENT: 1. Dehydration secondary to nausea, vomiting. 2. Hypertension secondary to dehydration. 3. Cardiomyopathy. 4. Diabetes mellitus, type 2. 5. Lactic acidosis secondary to dehydration, present on admission. 6. Increased creatinine with acute kidney failure, prerenal, acute tubular necrosis. 7. Hyperkalemia. 8. History of cardiomyopathy. 9. History of coronary artery disease. 10.History of congestive heart failure. 11.Gastroesophageal reflux disease. 12.Hypertension. 13.Hyperlipidemia. 14.History of pneumonia. 15.History of diabetic polyneuropathy. 16.History of gastroparesis. 17.History of coronary artery disease with stent. RECOMMENDATIONS AND DISCUSSION: In this 41-year-old gentleman who presented with multiple complex medical issues , we will monitor the patient closely, continue the symptomatic treatment. The patient's renal failure is improving at this time; however, I would recommend cutting down the IV fluids and monitor patient closely. The potassium is elevated. I would recommend Kayexalate as well as low-potassium diet. Lisinopril may be held because of the severe hyperkalemia. Prognosis guarded because of the multiple complex medical issues. I will repeat the electrolytes and continue to monitor. Blood pressure to be closely follow with Cardiology. Overall prognosis is guarded because of multiple complex medical issues. Please note patient has significant cardiomyopathy on the most recent 2D echo. I would also recommend AICD interrogation. Prognosis guarded. Further recommendations to follow. See orders for further details. MMODL / IJN: [id number] / MTDD
[2017-02-16 20:30] LABS: Glucose,Whole Blood 185 mg/dL (75-99)
[2017-02-16] MEDS: ARIPiprazole 15 MG TAB PO SCH (20:30)
[2017-02-16] MEDS: LINAGLIPTIN 5 MG TABLET PO SCH (20:30)
[2017-02-16] MEDS: PRIMIDONE 50 MG TAB PO SCH (20:31)
[2017-02-17 02:22] LABS: Glucose,Whole Blood 89 mg/dL (75-99)
[2017-02-17] MEDS: INSULIN LISPRO (humaLOG) 300 UNIT/3 ML VIAL SQ SCH ×3 (03:52→12:30)
[2017-02-17 06:52] LABS: Basophils % (A) 1 %; CH 27.3; CHCM 32.8; Eosinophils # (A) 0.2 k/uL (0-0.7); Eosinophils % (A) 4 %; HCT 33.6 % (39.0-53.0); HDW 2.89; Luc # (Auto) 0.04; Luc % (Auto) 1; Lymphocytes # (A) 0.8 k/uL (1.0-4.8); Lymphocytes % (A) 21 %; MCH 27.2 pg (25.0-35.0); MCHC 32.6 g/dL (31.0-37.0); MCV 83.4 fL (80.0-100.0); Mean Platelet Volume 7.4; Monocytes # (A) 0.2 k/uL (0-1.0); Monocytes % (A) 6 %; Neutrophils # (A) 2.5 k/uL (1.3-7.7); Neutrophils % (A) 68 %; RBC 4.03 m/uL (4.30-5.90); RDW 15.8 % (11.5-15.5); WBC 3.7 k/uL (3.8-10.6); WBC (Perox) 4.06
[2017-02-17 07:05] LABS: Anion Gap 10 mmol/L; Blood Urea Nitrogen 17 mg/dL (9-20); Calcium 8.4 mg/dL (8.4-10.2); Carbon Dioxide 21 mmol/L (22-30); Chloride 106 mmol/L (98-107); Non-African American GFR(MDRD) >60 (>60 ml/min/1.73 sqM); Potassium 4.2 mmol/L (3.5-5.1); Sodium 137 mmol/L (137-145)
[2017-02-17 07:06] LABS: Glucose 127 mg/dL (74-99)
[2017-02-17 07:26] LABS: Glucose,Whole Blood 120 mg/dL (75-99)
[2017-02-17] MEDS: PANTOPRAZOLE 40 MG/10 ML VIAL IVP SCH (07:59)
[2017-02-17] MEDS: RANOLAZINE 500 MG TAB.ER.12H PO SCH (07:59)
[2017-02-17] MEDS: PRASUGREL 10 MG TAB PO SCH (08:00)
[2017-02-17] MEDS: HEPARIN SODIUM,PORCINE 5,000 UNIT/ML 1 ML VIAL SQ SCH (08:00)
[2017-02-17] MEDS: metFORMIN 500 MG TAB PO SCH (08:00)
[2017-02-17] MEDS: SERTRALINE 100 MG TAB PO SCH (08:00)
[2017-02-17] MEDS: METOPROLOL TARTRATE 50 MG TAB PO SCH (08:00)
[2017-02-17] MEDS: ASPIRIN 81 MG PO SCH (08:00)
[2017-02-17] MEDS: GLIMEPIRIDE 4 MG TAB PO SCH (08:00)
[2017-02-17] MEDS: CIPROFLOXACIN HCL 500 MG TAB PO SCH (08:00)
[2017-02-17] MEDS: GABAPENTIN 300 MG CAP PO SCH (08:01)
[2017-02-17] MEDS: LOPERAMIDE 2 MG CAP PO SCH (08:01)
--- NOTE | 2017-02-17 08:54 | P.PN ---
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 The patient is also known to have severe cardiomyopathy and he has AICD. He was in his usual state of health when he was at a alliance party and suddenly he felt dizzy and lightheaded and felt weak. The patient did not lose his consciousness. He does not recall having any chest pain or chest discomfort or difficulty breathing or heart racing or fluttering. He stated that he was experiencing intermittent episodes of diarrhea as well as some nausea and vomiting over the last few days but it has been better lately. The EKG showed atrial sensed ventricular paced rhythm. The first set of cardiac enzymes came in to be unremarkable and we don't have the results of the serial cardiac enzymes. The patient has been maintaining normal sinus mechanism. The blood pressure in the hospital was not well-controlled when he presented to the hospital but currently the pressure seems to be well-controlled. On follow-up with the patient today, he continues to be asymptomatic from the cardiovascular standpoint of view. I suggested the patient to get up and around. He can be transferred to selective unit. Objective - Vital Signs Vital signs: Vital Signs Temp 98.5 F 02/17/17 08:00 Pulse 88 02/17/17 08:00 Resp 17 02/17/17 08:00 BP 164/89 02/17/17 08:00 Pulse Ox 93 L 02/17/17 08:00 Intake & Output 02/16/17 02/17/17 02/17/17 18:59 06:59 18:59 Intake Total 20 400 240 Output Total 1600 Balance -1580 400 240 Weight 118.3 kg Intake: Intake, IV Titration 20 Amount Sodium Chloride 0.9% 1, 20 000 ml @ 100 mls/hr IV . Q10H COUNTS INCLUDE 234 BEDS AT THE [facility] Rx#:[id number] Oral 400 240 Output: Urine 1600 Other: Voiding Method Urinal Urinal Urinal - Constitutional General appearance: Present: no acute distress - Respiratory Respiratory: bilateral: CTA - Cardiovascular Rhythm: regular Heart sounds: normal: S1, S2 - Labs CBC & Chem 7: 02/17/17 06:38 02/17/17 06:38 Labs: Abnormal Lab Results - Last 24 Hours (Table) 02/16/17 02/16/17 02/16/17 Range/Units 11:58 16:32 17:48 WBC (3.8-10.6) k/uL RBC (4.30-5.90) m/uL Hgb (13.0-17.5) gm/dL Hct (39.0-53.0) % RDW (11.5-15.5) % Lymphocytes # (1.0-4.8) k/uL Sodium 135 L (137-145) mmol/L Carbon Dioxide 21 L (22-30) mmol/L Glucose (74-99) mg/dL POC Glucose (mg/dL) 128 H 158 H (75-99) mg/dL 02/16/17 02/17/17 02/17/17 Range/Units 20:28 06:38 06:38 WBC 3.7 L (3.8-10.6) k/uL RBC 4.03 L (4.30-5.90) m/uL Hgb 11.0 L (13.0-17.5) gm/dL Hct 33.6 L (39.0-53.0) % RDW 15.8 H (11.5-15.5) % Lymphocytes # 0.8 L (1.0-4.8) k/uL Sodium (137-145) mmol/L Carbon Dioxide 21 L (22-30) mmol/L Glucose 127 H (74-99) mg/dL POC Glucose (mg/dL) 185 H (75-99) mg/dL 02/17/17 Range/Units 07:24 WBC (3.8-10.6) k/uL RBC (4.30-5.90) m/uL Hgb (13.0-17.5) gm/dL Hct (39.0-53.0) % RDW (11.5-15.5) % Lymphocytes # (1.0-4.8) k/uL Sodium (137-145) mmol/L Carbon Dioxide (22-30) mmol/L Glucose (74-99) mg/dL POC Glucose (mg/dL) 120 H (75-99) mg/dL Microbiology - Last 24 Hours (Table) 02/14/17 14:24 Blood Culture - Preliminary Blood No Growth after 48 hours Assessment and Plan Plan: This is a pleasant 41-year-old gentleman with a known history of CAD and prior stenting of the left circumflex and LAD, severe ischemic cardiomyopathy and status post AICD, hypertension, dyslipidemia was admitted to the hospital was weakness associated with dizziness and lightheadedness. The blood pressure seems to be not well-controlled. The patient has been maintaining normal sinus mechanism. Maintaining normal heart rate. The last echocardiogram was performed in December 2016 and that showed severe cardiomyopathy. The patient has been asymptomatic from a cardiovascular standpoint overview. I recommended the patient to get up and around and transferred to selective unit.
[2017-02-17 12:15] LABS: Glucose,Whole Blood 131 mg/dL (75-99)
[2017-02-17] MEDS: CHOLECALCIFEROL 1,000 UNIT TAB PO SCH (12:30)
[2017-02-17 13:30] VITALS: BP 141/65; PULSE 81; RESP 25; TEMP 98
--- NOTE | 2017-02-17 15:41 | P.DS ---
Providers Date of admission: 02/14/17 15:52 Attending physician: Jose M Gallagher Primary care physician: [place] Hospital Course: This 41-year-old gentleman with a past medical history multiple medical problems including cardiomyopathy diabetes type 2 and other medical issues was admitted with the dehydration and as well as the nausea vomiting patient also had hypotension possibly secondary to dehydration. Patient treated symptomatically. Antihypertensive medications were held initially. The patient was monitored closely in ICU. Cardiology saw the patient. Patient improved significantly. As mentioned earlier antihypertensive medications are restarted. The patient tolerated that very well. The patient is being discharged in a stable condition with guarded prognosis per recommendation of cardiology. I recommend the patient to follow-up with cardiology and primary physician in the outpatient setting closely. On exam vitals stable. Cardio S1-S2 normal respiratory system few scattered rhonchi and crackles. Abdomen soft nontender. Legs minimal leg edema. Final diagnoses 1. Dehydration secondary to nausea vomiting. 2. Hypotension secondary to dehydration. 3. Cardiomyopathy history. 4. Diabetes was type II. 5. Lactic acidosis secondary to dehydration present on admission. 6. Increased creatinine with acute kidney failure prerenal acute tubular necrosis. Improved. 7. Hypokalemia. 8. History of cardiomyopathy. 9. History of CAD. 10. History of CHF. 11. GERD. 12. Hypertension history. 13. Hyperlipidemia. 14. History pneumonia. 15. History of diabetes or diabetic polyneuropathy. 16. History of gastroparesis. 70. History of CAD stent. Patient Condition at Discharge: Serious Plan - Discharge Summary New Discharge Prescriptions: New Lisinopril [Zestril] 5 mg PO DAILY #30 tab Continue Nitroglycerin Sl Tabs [Nitrostat] 0.4 mg SUBLINGUAL Q5M PRN PRN Reason: Chest Pain metFORMIN HCL 1,000 mg PO BID Omeprazole [PriLOSEC] 40 mg PO HS Glimepiride 4 mg PO BID Dulaglutide [Trulicity] 1.5 mg SQ OROZCO Rosuvastatin Calcium 40 mg PO HS Ranolazine [Ranexa] 1,000 mg PO BID Gabapentin [Neurontin] 300 mg PO TID Primidone [Mysoline] 100 mg PO HS Prasugrel [Effient] 10 mg PO DAILY tab Metoprolol Tartrate 50 mg PO BID Loperamide [Imodium] 2 mg PO TID Aspirin EC [Ecotrin Low Dose] 81 mg PO DAILY Cholecalciferol (Vitamin D3) [Vitamin D3] 2,000 unit PO DAILY Linagliptin [Tradjenta] 5 mg PO HS Sertraline HCl [Zoloft] 200 mg PO DAILY #28 ARIPiprazole [ARIPiprazole Odt] 15 mg PO HS Ciprofloxacin HCl [Cipro] 500 mg PO BID Albuterol Inhaler [Ventolin Hfa Inhaler] 1 - 2 puff INHALATION RT-QID PRN PRN Reason: Shortness Of Breath Discontinued Lisinopril [Zestril] 2.5 mg PO DAILY Ranitidine HCl 300 mg PO DAILY Discharge Medication List Nitroglycerin Sl Tabs [Nitrostat] 0.4 mg SUBLINGUAL Q5M PRN 10/13/13 [History] metFORMIN HCL 1,000 mg PO BID 07/03/15 [History] Omeprazole [PriLOSEC] 40 mg PO HS 08/13/15 [History] Dulaglutide [Trulicity] 1.5 mg SQ OROZCO 03/10/16 [History] Glimepiride 4 mg PO BID 03/10/16 [History] Rosuvastatin Calcium 40 mg PO HS 05/05/16 [History] Gabapentin [Neurontin] 300 mg PO TID 06/09/16 [History] Ranolazine [Ranexa] 1,000 mg PO BID 06/09/16 [History] Primidone [Mysoline] 100 mg PO HS 06/30/16 [History] Prasugrel [Effient] 10 mg PO DAILY tab 07/01/16 [Rx] Loperamide [Imodium] 2 mg PO TID 10/20/16 [History] Metoprolol Tartrate 50 mg PO BID 10/20/16 [History] Aspirin EC [Ecotrin Low Dose] 81 mg PO DAILY 11/07/16 [History] Cholecalciferol (Vitamin D3) [Vitamin D3] 2,000 unit PO DAILY 11/07/16 [History] Linagliptin [Tradjenta] 5 mg PO HS 12/19/16 [History] Sertraline HCl [Zoloft] 200 mg PO DAILY #28 01/27/17 [Rx] ARIPiprazole [ARIPiprazole Odt] 15 mg PO HS 02/14/17 [History] Albuterol Inhaler [Ventolin Hfa Inhaler] 1 - 2 puff INHALATION RT-QID PRN [History] Ciprofloxacin HCl [Cipro] 500 mg PO BID 02/14/17 [History] Lisinopril [Zestril] 5 mg PO DAILY #30 tab 02/17/17 [Rx] Follow up Appointment(s)/Referral(s): Junie New MD [Primary Care Provider] - 3 Days Ambulatory/Diagnostic Orders: Complete Blood Count w/diff [LAB.AMB] Time Frame: 3 Days, Location: Determined By Patient Activity/Diet/Wound Care/Special Instructions: Pt to follow up with homebirth midwife from out of town Diet: Cardiac Activity: Limited until follow up. Discharge Disposition: HOME SELF-CARE
== END 2017-02-17 15:31 | disposition home or self-care (01) | DRG 683 ==
LOC: EC 13:50 → 6ICU 15:52
PROVIDERS: ADMIT Internal Medicine; ATTEND Internal Medicine
PROC: 4B02XTZ Measurement of Cardiac Defibrillator, External Approach (ICD-10-PCS; principal; 2017-02-16)
DX: N17.0 Acute kidney failure with tubular necrosis (principal); E87.2 Acidosis; I95.9 Hypotension, unspecified; I11.0 Hypertensive heart disease with heart failure; E11.42 Type 2 diabetes mellitus with diabetic polyneuropathy; I50.9 Heart failure, unspecified; E11.43 Type 2 diabetes mellitus with diabetic autonomic (poly)neuropathy; E87.5 Hyperkalemia; K31.84 Gastroparesis; E87.6 Hypokalemia; E86.0 Dehydration; I25.10 Atherosclerotic heart disease of native coronary artery without angina pectoris; E78.5 Hyperlipidemia, unspecified; K21.9 Gastro-esophageal reflux disease without esophagitis; I25.5 Ischemic cardiomyopathy; I25.2 Old myocardial infarction; G47.30 Sleep apnea, unspecified; F43.10 Post-traumatic stress disorder, unspecified; F12.90 Cannabis use, unspecified, uncomplicated; M19.90 Unspecified osteoarthritis, unspecified site; G89.29 Other chronic pain; F10.20 Alcohol dependence, uncomplicated; E66.9 Obesity, unspecified; R53.1 Weakness; R06.09 Other forms of dyspnea; K29.50 Unspecified chronic gastritis without bleeding; M54.9 Dorsalgia, unspecified; R11.2 Nausea with vomiting, unspecified; R19.7 Diarrhea, unspecified; F41.9 Anxiety disorder, unspecified; F32.9 Major depressive disorder, single episode, unspecified; Z88.8 Allergy status to other drugs, medicaments and biological substances; Z87.828 Personal history of other (healed) physical injury and trauma; Z86.19 Personal history of other infectious and parasitic diseases; Z87.01 Personal history of pneumonia (recurrent); Z95.5 Presence of coronary angioplasty implant and graft; Z82.49 Family history of ischemic heart disease and other diseases of the circulatory system; Z86.14 Personal history of Methicillin resistant Staphylococcus aureus infection; Z88.6 Allergy status to analgesic agent; Z79.899 Other long term (current) drug therapy; Z79.84 Long term (current) use of oral hypoglycemic drugs; Z86.73 Personal history of transient ischemic attack (TIA), and cerebral infarction without residual deficits; Z95.810 Presence of automatic (implantable) cardiac defibrillator; Z83.3 Family history of diabetes mellitus; Z82.0 Family history of epilepsy and other diseases of the nervous system; Z91.5 Personal history of self-harm; Z88.1 Allergy status to other antibiotic agents; Z91.041 Radiographic dye allergy status; Z88.5 Allergy status to narcotic agent; Z88.0 Allergy status to penicillin; Z91.013 Allergy to seafood; Z79.2 Long term (current) use of antibiotics; Z79.02 Long term (current) use of antithrombotics/antiplatelets; Z79.82 Long term (current) use of aspirin; Z91.14 Patient's other noncompliance with medication regimen; Z90.49 Acquired absence of other specified parts of digestive tract; Z90.79 Acquired absence of other genital organ(s); Z87.2 Personal history of diseases of the skin and subcutaneous tissue
CPT/HCPCS: 36415; 71010; 80048; 80051; 80053; 80306; 81001; 82550; 82553; 83036; 83605; 83690; 83735; 83880; 84484; 85025; 85610; 85730; 87040; 87086; 93005; 96360; 96361; 96374; 99291

== ENCOUNTER → 2017-02-23 | Outpatient (CLI) | payer MEDICARE, OTHER ==
--- NOTE | 2017-02-23 17:18 | US ---
EXAMINATION TYPE: US venous doppler duplex LE RT DATE OF EXAM: 02/23/2017 4:14 PM COMPARISON: NONE CLINICAL HISTORY: M79.651 RT THIGH PAIN,M79.604 RT LEG PAIN,R29.2. Pain in right leg, known back issu e. Patient on blood thinner - AFIB with stents SIDE PERFORMED: right TECHNIQUE: The lower extremity deep venous system is examined utilizing real time linear array sonog mami with graded compression, doppler sonography and color-flow sonography. VESSELS IMAGED: External Iliac Vein (EIV) Common Femoral Vein Deep Femoral Vein Greater Saphenous Vein * Femoral Vein Popliteal Vein Small Saphenous Vein * Proximal Calf Veins (* superficial vessels) DESCRIPTION: Grayscale, color doppler, spectral doppler imaging performed of the deep veins of the lo wer extremities. There is normal flow, compressibility, vascular waveforms. IMPRESSION: RIGHT LOWER EXTREMITY: NEGATIVE FOR DEEP VENOUS THROMBOSIS.
== END | disposition home or self-care (01) ==
LOC: RADUSWWP 15:57
PROVIDERS: ATTEND Family Medicine
DX: M79.604 Pain in right leg (principal); M79.651 Pain in right thigh; R29.2 Abnormal reflex

== ENCOUNTER 2017-02-24 05:49 | Inpatient (IN) | payer MEDICARE, OTHER ==
--- NOTE | 2017-02-24 06:20 | ED ---
General Adult HPI - General Source: patient, RN notes reviewed, old records reviewed Mode of arrival: ambulatory Limitations: no limitations <Ayush Jackman - Last Filed: 02/24/17 06:48> <Patrice Haas - Last Filed: 02/24/17 09:14> - General Chief complaint: Chest Pain Stated complaint: chest pain,leg pain Time Seen by Provider: 02/24/17 05:52 - History of Present Illness Initial comments: 41-year-old male with history of ischemic cardiomyopathy and diabetes presents for evaluation chest pain. Patient complains of a dull substernal chest pain. He has had multiple heart attacks in the past. Pain was similar but not the same as previous MO. Patient does state he took total of 4 nitroglycerin throughout the night. Each time he took nitroglycerin his pain was improved. Patient is a nonsmoker. His second complaint of right lower extremity pain. He has had this pain for several months. Worse over the past several days. He did receive an outpatient ultrasound yesterday which was negative for DVT. His had computed tomography scan of his back in the past which showed disc protrusion at L4-L5 and L5-S1. Patient states this pain is worse with sitting and standing. Relieved by lying flat. Denies any sensory changes. Denies bowel or bladder issues. Patient has no abdominal pain. No shortness of breath. No nausea or vomiting. (Ayush Jackman) - Related Data Home Medications Medication Instructions Recorded Confirmed Nitroglycerin Sl Tabs [Nitrostat] 0.4 mg SUBLINGUAL Q5M PRN 10/13/13 02/24/17 metFORMIN HCL 1,000 mg PO BID 07/03/15 02/24/17 Omeprazole [PriLOSEC] 40 mg PO HS 08/13/15 02/24/17 Dulaglutide [Trulicity] 1.5 mg SQ OROZCO 03/10/16 02/24/17 Glimepiride 4 mg PO BID 03/10/16 02/24/17 Rosuvastatin Calcium 40 mg PO HS 05/05/16 02/24/17 Ranolazine [Ranexa] 1,000 mg PO BID 06/09/16 02/24/17 Primidone [Mysoline] 100 mg PO HS 06/30/16 02/24/17 Loperamide [Imodium] 2 mg PO TID 10/20/16 02/24/17 Metoprolol Tartrate 50 mg PO BID 10/20/16 02/24/17 Aspirin EC [Ecotrin Low Dose] 81 mg PO DAILY 11/07/16 02/24/17 Cholecalciferol (Vitamin D3) 2,000 unit PO DAILY 11/07/16 02/24/17 [Vitamin D3] Linagliptin [Tradjenta] 5 mg PO HS 12/19/16 02/24/17 ARIPiprazole [ARIPiprazole Odt] 15 mg PO HS 02/14/17 02/24/17 Albuterol Inhaler [Ventolin Hfa 2 puff INHALATION RT-QID PRN 02/14/17 02/24/17 Inhaler] Gabapentin [Neurontin] 400 mg PO TID 02/24/17 02/24/17 Previous Rx's Medication Instructions Recorded Prasugrel [Effient] 10 mg PO DAILY tab 07/01/16 Sertraline HCl [Zoloft] 200 mg PO DAILY #28 01/27/17 Lisinopril [Zestril] 5 mg PO DAILY #30 tab 02/17/17 Allergies Allergy/AdvReac Type Severity Reaction Status Date / Time erythromycin base Allergy Severe Swelling Verified 02/24/17 07:39 [Erythromycin Base] codeine Allergy Unknown Swelling Verified 02/24/17 07:39 meclizine Allergy Unknown Unknown Verified 02/24/17 07:39 Penicillins Allergy Unknown Rash/Hives Verified 02/24/17 07:39 shellfish derived Allergy Unknown Anaphylaxis Verified 02/24/17 07:39 Fish Containing Products Allergy Anaphylaxis Verified 02/24/17 07:39 [Fish] Iodinated Contrast- Oral and Allergy Anaphylaxis Verified 02/24/17 07:39 IV Dye cephalexin monohydrate AdvReac Unknown Nausea & Verified 02/24/17 07:39 [From Keflex] Vomiting naproxen AdvReac Unknown Compromises Verified 02/24/17 07:39 Kidney Function atorvastatin calcium AdvReac Myalgia Verified 02/24/17 07:39 [From Lipitor] hydrocodone [From [place]] AdvReac Rapid Verified 02/24/17 07:39 Heart Rate Review of Systems ROS Other: All systems not noted in ROS Statement are negative. <Ayush Jackman - Last Filed: 02/24/17 06:48> ROS Other: All systems not noted in ROS Statement are negative. <Patrice Haas - Last Filed: 02/24/17 09:14> ROS Statement: Those systems with pertinent positive or pertinent negative responses have been documented in the HPI. Past Medical History Past Medical History: Coronary Artery Disease (CAD), Chest Pain / Angina, Heart Failure, CVA/TIA, Diabetes Mellitus, GERD/Reflux, Hyperlipidemia, Hypertension, Myocardial Infarction (MO), Osteoarthritis (OA), Pneumonia, Skin Disorder, Sleep Apnea/CPAP/BIPAP Additional Past Medical History / Comment(s): HX: Coronary artery disease with multiple vessel disease, ischemic cardiomyopathy, diabetic neuropathy bilateral hands and feet, hypertension hypertensive cardiovascular disease, chronic gastritis, chronic back pain, depression with hx of suicide attempts, GASTROPARESIS, PSORIASES,NIDDM type II. Last Myocardial Infarction Date:: 06/03/16 per pt. 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 Past Anesthesia/Blood Transfusion Reactions: No Reported Reaction Additional Past Anesthesia/Blood Transfusion Reaction / Comment(s): . Date of Last Stent Placement:: 06/03/16 Type of Cardiac Device: Biventricular Pacemaker, AICD Device Placement Date:: 09/19/15 Past Psychological History: Anxiety, Depression, PTSD Smoking Status: Never smoker Past Alcohol Use History: Occasional Past Drug Use History: Marijuana - Past Family History Mother Family Medical History: Coronary Artery Disease (CAD), Myocardial Infarction (MO ) Additional Family Medical History / Comment(s): 7 MO and faulty heart valve. Pt does not know the age when mother had her MIs. Father History Unknown: Yes Additional Family Medical History / Comment(s): Does not know who father is Brother(s) Family Medical History: Congestive Heart Failure (CHF), Myocardial Infarction ( MO) Additional Family Medical History / Comment(s): Parkinsons. Pt does not know at what age his brother had a MO Patient has Family Medical History: No Reported History Additional Family Medical History / Comment(s): There is a strong family history for heart disease, hypertension, and diabetes. <Ayush Jackman N - Last Filed: 02/24/17 06:48> General Exam Limitations: no limitations General appearance: alert, obese Head exam: Present: atraumatic, normocephalic Eye exam: Present: normal appearance, PERRL ENT exam: Present: normal exam Neck exam: Present: normal inspection. Absent: tenderness, meningismus Respiratory exam: Present: normal lung sounds bilaterally. Absent: respiratory distress Cardiovascular Exam: Present: regular rate, normal rhythm GI/Abdominal exam: Present: soft. Absent: distended, tenderness Extremities exam: Present: normal inspection, normal capillary refill. Absent: pedal edema Neurological exam: Present: alert, oriented X3, CN II-XII intact, reflexes normal. Absent: motor sensory deficit Psychiatric exam: Present: normal affect, normal mood Skin exam: Present: warm, dry, intact <Ayush Jackman N - Last Filed: 02/24/17 06:48> General appearance: alert, in no apparent distress Head exam: Present: atraumatic, normocephalic, normal inspection Eye exam: Present: normal appearance, PERRL, EOMI. Absent: scleral icterus, conjunctival injection, periorbital swelling ENT exam: Present: normal exam, mucous membranes moist Neck exam: Present: normal inspection. Absent: tenderness, meningismus, lymphadenopathy Respiratory exam: Present: normal lung sounds bilaterally. Absent: respiratory distress, wheezes, rales, rhonchi, stridor Cardiovascular Exam: Present: regular rate, normal rhythm, normal heart sounds. Absent: systolic murmur, diastolic murmur, rubs, gallop, clicks GI/Abdominal exam: Present: soft, normal bowel sounds. Absent: distended, tenderness, guarding, rebound, rigid Extremities exam: Present: normal inspection, full ROM, normal capillary refill. Absent: tenderness, pedal edema, joint swelling, calf tenderness Back exam: Present: normal inspection Neurological exam: Present: alert, oriented X3, CN II-XII intact Psychiatric exam: Present: normal affect, normal mood Skin exam: Present: warm, dry, intact, normal color. Absent: rash <Patrice Haas - Last Filed: 02/24/17 09:14> Course <Ayush Jackman - Last Filed: 02/24/17 06:48> <Patrice Haas - Last Filed: 02/24/17 09:14> Vital Signs 02/24/17 02/24/17 05:51 08:05 Temperature 98.5 F Pulse Rate 87 79 Respiratory 17 20 Rate Blood Pressure 167/90 114/72 O2 Sat by Pulse 99 Oximetry - Reevaluation(s) Reevaluation #1: 02/24/17 09:14 patient sleeping still with chest pain on re Eval. (Patrice Haas) Reevaluation #2: 02/24/17 09:14 medical record is thoroughly reviewed, recent stent placement (Patrice Haas) EKG Findings - EKG Comments: EKG Findings:: EKG shows ventricular paced rhythm, ventricular rate 87, OH interval 144, respiration 108, QTC 466, no ST segment elevation <Ayush Jackman - Last Filed: 02/24/17 06:48> Medical Decision Making <Ayush Jackman - Last Filed: 02/24/17 06:48> - Lab Data Result diagrams: 02/24/17 07:23 02/24/17 06:20 - Radiology Data Radiology results: report reviewed (CXR is negative for acute disease), image reviewed <Patrice Haas - Last Filed: 02/24/17 09:14> - Medical Decision Making 41 male to ED w severe history of CAD to ED co CP today, will admit ofr cardiac evaluation, cardiac observation, cardiac monitoring (Patrice Haas) - Lab Data Lab Results 02/24/17 02/24/17 02/24/17 Range/Units 06:20 06:20 07:23 WBC 5.2 (3.8-10.6) k/uL RBC 4.24 L (4.30-5.90) m/uL Hgb 11.4 L (13.0-17.5) gm/dL Hct 36.3 L (39.0-53.0) % MCV 85.6 (80.0-100.0) fL MCH 27.0 (25.0-35.0) pg MCHC 31.5 (31.0-37.0) g/dL RDW 15.0 (11.5-15.5) % Plt Count 253 (150-450) k/uL Neutrophils % 65 % Lymphocytes % 23 % Monocytes % 6 % Eosinophils % 4 % Basophils % 1 % Neutrophils # 3.4 (1.3-7.7) k/uL Lymphocytes # 1.2 (1.0-4.8) k/uL Monocytes # 0.3 (0-1.0) k/uL Eosinophils # 0.2 (0-0.7) k/uL Basophils # 0.0 (0-0.2) k/uL Hypochromasia Moderate PT (9.0-12.0) sec INR (<1.2) APTT (22.0-30.0) sec Sodium 137 (137-145) mmol/L Potassium 4.9 (3.5-5.1) mmol/L Chloride 102 (98-107) mmol/L Carbon Dioxide 22 (22-30) mmol/L Anion Gap 13 mmol/L BUN 31 H (9-20) mg/dL Creatinine 2.20 H (0.66-1.25) mg/dL Est GFR (MDRD) Af Amer 40 (>60 ml/min/1.73 sqM) Est GFR (MDRD) Non-Af 33 (>60 ml/min/1.73 sqM) Glucose 338 H (74-99) mg/dL Calcium 9.1 (8.4-10.2) mg/dL Magnesium 1.7 (1.6-2.3) mg/dL Total Bilirubin 0.4 (0.2-1.3) mg/dL AST 25 (17-59) U/L ALT 34 (21-72) U/L Alkaline Phosphatase 121 (38-126) U/L Total Creatine Kinase 80 (55-170) U/L CK-MB (CK-2) 1.9 (0.0-2.4) ng/mL CK-MB (CK-2) Rel Index 2.4 Troponin I 0.061 H* (0.000-0.034) ng/mL NT-Pro-B Natriuret Pep pg/mL Total Protein 6.4 (6.3-8.2) g/dL Albumin 3.7 (3.5-5.0) g/dL Lipase 220 (23-300) U/L 02/24/17 02/24/17 Range/Units 07:23 07:23 WBC (3.8-10.6) k/uL RBC (4.30-5.90) m/uL Hgb (13.0-17.5) gm/dL Hct (39.0-53.0) % MCV (80.0-100.0) fL MCH (25.0-35.0) pg MCHC (31.0-37.0) g/dL RDW (11.5-15.5) % Plt Count (150-450) k/uL Neutrophils % % Lymphocytes % % Monocytes % % Eosinophils % % Basophils % % Neutrophils # (1.3-7.7) k/uL Lymphocytes # (1.0-4.8) k/uL Monocytes # (0-1.0) k/uL Eosinophils # (0-0.7) k/uL Basophils # (0-0.2) k/uL Hypochromasia PT 9.7 (9.0-12.0) sec INR 0.9 (<1.2) APTT 20.2 L (22.0-30.0) sec Sodium (137-145) mmol/L Potassium (3.5-5.1) mmol/L Chloride (98-107) mmol/L Carbon Dioxide (22-30) mmol/L Anion Gap mmol/L BUN (9-20) mg/dL Creatinine (0.66-1.25) mg/dL Est GFR (MDRD) Af Amer (>60 ml/min/1.73 sqM) Est GFR (MDRD) Non-Af (>60 ml/min/1.73 sqM) Glucose (74-99) mg/dL Calcium (8.4-10.2) mg/dL Magnesium (1.6-2.3) mg/dL Total Bilirubin (0.2-1.3) mg/dL AST (17-59) U/L ALT (21-72) U/L Alkaline Phosphatase (38-126) U/L Total Creatine Kinase (55-170) U/L CK-MB (CK-2) (0.0-2.4) ng/mL CK-MB (CK-2) Rel Index Troponin I (0.000-0.034) ng/mL NT-Pro-B Natriuret Pep 1320 pg/mL Total Protein (6.3-8.2) g/dL Albumin (3.5-5.0) g/dL Lipase (23-300) U/L Critical Care Time Critical Care Time: Yes Total Critical Care Time: 31 <Patrice Haas - Last Filed: 02/24/17 09:14> Disposition <Ayush Jackman - Last Filed: 02/24/17 06:48> <Patrice Haas - Last Filed: 02/24/17 09:14> Clinical Impression: NSTEMI (non-ST elevated myocardial infarction), Acute coronary syndrome, Unstable angina pectoris Disposition: ADMITTED IP TO THIS HOSP Condition: Undetermined Referrals: Junie New MD [Primary Care Provider] - 1-2 days
[2017-02-24 06:43] LABS: Calcium 9.1 mg/dL (8.4-10.2); Magnesium 1.7 mg/dL (1.6-2.3); Potassium 4.9 mmol/L (3.5-5.1); Total Bilirubin 0.4 mg/dL (0.2-1.3); Total Protein 6.4 g/dL (6.3-8.2)
[2017-02-24] MEDS ORDERED: SODIUM CHLORIDE 0.9% 1,000 ML IV ONE (07:00)
[2017-02-24] MEDS ORDERED: ASPIRIN 325 MG TAB PO STA (07:01)
[2017-02-24 07:03] LABS: Creatine Kinase MB 1.9 ng/mL (0.0-2.4)
[2017-02-24] MEDS ORDERED: MORPHINE SULFATE 4 MG/ML SYRINGE IVP STA (07:03)
[2017-02-24 07:09] LABS: Troponin I 0.061 ng/mL (0.000-0.034)
[2017-02-24] MEDS: SODIUM CHLORIDE 0.9% 1,000 ML IV SCH ×2 (07:30→20:42)
[2017-02-24 07:34] LABS: Basophils % (A) 1 %; CH 26.1; CHCM 30.6; Eosinophils # (A) 0.2 k/uL (0-0.7); Eosinophils % (A) 4 %; HCT 36.3 % (39.0-53.0); HDW 3.11; HGB 11.4 gm/dL (13.0-17.5); Hypochromasia Moderate; Luc # (Auto) 0.12; Luc % (Auto) 2; Lymphocytes # (A) 1.2 k/uL (1.0-4.8); Lymphocytes % (A) 23 %; MCHC 31.5 g/dL (31.0-37.0); MCV 85.6 fL (80.0-100.0); Mean Platelet Volume 7.4; Monocytes # (A) 0.3 k/uL (0-1.0); Monocytes % (A) 6 %; Neutrophils # (A) 3.4 k/uL (1.3-7.7); Neutrophils % (A) 65 %; RBC 4.24 m/uL (4.30-5.90); WBC 5.2 k/uL (3.8-10.6); WBC (Perox) 5.66
--- NOTE | 2017-02-24 07:39 | XR ---
EXAMINATION TYPE: XR chest 2V DATE OF EXAM: 02/24/2017 COMPARISON: 02/16/2017 TECHNIQUE: PA and lateral views submitted. HISTORY: Chest pain FINDINGS: Cardiac device noted. No pneumothorax or consolidation. No pleural effusion. No overt failure. IMPRESSION: 1. No acute process.
[2017-02-24 07:44] LABS: INR 0.9 (<1.2); Prothrombin Time 9.7 sec (9.0-12.0)
[2017-02-24 08:00] LABS: Partial Thromboplastin Time 20.2 sec (22.0-30.0)
[2017-02-24 13:29] LABS: Creatine Kinase MB 2.1 ng/mL (0.0-2.4)
[2017-02-24 13:35] LABS: Troponin I 0.106 ng/mL (0.000-0.034)
[2017-02-24] MEDS ORDERED: NITROGLYCERIN SL TABS 0.4 MG TAB SUBLINGUAL PRN (13:46)
[2017-02-24] MEDS ORDERED: ALBUTEROL NEBULIZED 2.5 MG/3 ML INHALATION PRN (13:46)
[2017-02-24] MEDS ORDERED: TEMAZEPAM 15 MG CAP PO PRN (13:48)
[2017-02-24] MEDS ORDERED: ALPRAZolam 0.25 MG TAB PO PRN (13:48)
[2017-02-24] MEDS ORDERED: NITROGLYCERIN OINT 1 INCH/GM PACKET TOPICAL ONE (13:52)
[2017-02-24] MEDS: NITROGLYCERIN SL TABS 0.4 MG TAB SUBLINGUAL PRN ×3 (13:56→14:10)
[2017-02-24] MEDS: NITROGLYCERIN OINT 1 INCH/GM PACKET TOPICAL SCH ×2 (15:59→23:24)
[2017-02-24] MEDS ORDERED: amLODIPine 5 MG TAB PO STA (16:23)
[2017-02-24 16:43] LABS: Glucose,Whole Blood 310 mg/dL (75-99)
[2017-02-24] MEDS ORDERED: metFORMIN 500 MG TAB PO SCH (17:30)
[2017-02-24] MEDS: LOPERAMIDE 2 MG CAP PO SCH ×2 (17:41→20:49)
[2017-02-24] MEDS: GLIMEPIRIDE 4 MG TAB PO SCH (17:41)
[2017-02-24] MEDS: GABAPENTIN 400 MG CAP PO SCH ×2 (17:41→20:49)
[2017-02-24] MEDS: INSULIN LISPRO (humaLOG) 300 UNIT/3 ML VIAL SQ SCH ×2 (18:19→21:03)
--- NOTE | 2017-02-24 20:27 | HP ---
HISTORY AND PHYSICAL DATE OF SERVICE: 02/24/2017 CHIEF COMPLAINTS: Chest pain and leg pain. HISTORY OF PRESENT ILLNESS: This 41-year-old gentleman with a past medical history of multiple medical problems such as cardiomyopathy, history of renal failure, history of CAD, CHF, GERD being followed by Dr. 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 Patient improved significantly with conservative management. Patient complains of the right leg pain. Patient came to the emergency room with complaints of right leg pain today. The patient went to the bathroom and came back and had sudden onset of chest heaviness and burning also. The patient was also having some dull chest pain yesterday. Also apparently patient took 4 nitroglycerin during the nighttime. The outpatient ultrasound apparently negative for DVT. Because of multiple medical issues patient admitted for further evaluation and treatment. Cardiology evaluation as sought. The troponins were found to be 0.061 and 0.106. The troponins are fluctuating. There is no history of fever, rigors. No headache, loss of consciousness, seizures, hematochezia or melena at this time. PAST MEDICAL HISTORY: Coronary artery disease, history of congestive heart failure, history of asthma, history of GERD, hypertension, hyperlipidemia, history of sleep apnea. MEDICATIONS: Prior to admission include home medications are: 1. Nitroglycerin 0.4 mg p.r.n. 2. Metformin 1000 mg b.i.d. 3. Zoloft 200 mg. 4. Crestor 40 mg q.h.s. 5. Ranexa 1000 mg p.o. b.i.d. 7. Effient 10 mg p.o. daily. 8. Prilosec 40 mg q.h.s. 9. Metoprolol 50 mg p.o. b.i.d. 10.Imodium 2 mg p.o. t.i.d. 11.Zestril 5 mg p.o. daily. 12.Tradjenta 5 mg q.h.s. 13.Glimepiride 4 mg p.o. b.i.d. 14.Neurontin 400 mg p.o. t.i.d. 15.Trulicity 1.5 mg subcu. 16.Vitamin D3 2000 daily. 17.Ecotrin 81 mg. 18.Ventolin HFA 2 puffs q.i.d. p.r.n. 19.Abilify 50 mg p.o. q.h.s. ALLERGIES: ERYTHROMYCIN, CODEINE, MECLIZINE, PENICILLIN, SHELLFISH, IODINATED CONTRAST, CEPHALEXIN, NAPROSYN, LIPITOR AND HYDROCODONE. FAMILY HISTORY: History of coronary artery disease in the family. SOCIAL HISTORY: Alcohol occasional. No history of smoking. REVIEW OF SYSTEMS: ENT: No diminished hearing, diminished vision. CARDIOVASCULAR: As mentioned. RESPIRATIONS: As mentioned earlier. GI: No nausea. : No dysuria. NERVOUS SYSTEM: No numbness, weakness. ALLERGY/IMMUNOLOGY: No asthma. MUSCULOSKELETAL: As mentioned. HEMATOLOGY: No history of anemia. ENDOCRINE: History of diabetes mellitus, no history of hypothyroidism. CONSTITUTIONAL: As mentioned earlier. DERMATOLOGY: Negative. RHEUMATOLOGY: Negative. PSYCHIATRY: As mentioned earlier. PHYSICAL EXAM: Patient is alert, oriented, pulse 90, blood pressure 118/84, respirations 16, temperature 97.2, pulse ox 97% on 3 L. HEENT: Conjunctivae normal. Oral mucosa moist. NECK: No jugular venous distention. No carotid bruit. No lymph node enlargement. CARDIOVASCULAR: S1, S2. RESPIRATORY: Breath sounds diminished at the bases. A few scattered rhonchi. No crackles. ABDOMEN: Soft, nontender. No mass palpable. LEGS: Minimal edema. NERVOUS SYSTEM: Higher functions as mentioned earlier. Moves all 4 limbs. No focal motor or sensory deficits. LYMPHATICS: No lymphadenopathy in the neck, axillae or groin. SKIN: No ulcer, rash, bleeding. LABS: WBC 5.2, hemoglobin 11.4. Creatinine is 2.20. The previous creatinine is 1 and troponin 0.061, 0.0106. ASSESSMENT: 1. Chest pain, possible unstable angina rule out acute coronary syndrome with troponin 0.0106. 2. Creatinine 2.20 with acute on chronic kidney disease with possibly prerenal factors. 3. History of cardiomyopathy. 4. Diabetes type 2. 5. History of recent dehydration. 6. History of coronary artery disease. 7. History of congestive heart failure. 8. Hypertension. 9. Hyperlipidemia. 10.History of diabetic polyneuropathy. 11.History of gastroparesis. 12.History of coronary artery disease, stent. RECOMMENDATIONS AND DISCUSSION: In this 41-year-old gentleman who presented with multiple complex medical issues , we will monitor the patient closely. Continue the current management, continue symptomatic treatment. I recommend to continue with current medications. Cautious IV hydration. Repeat labs in the morning. Cardiology consultation. The home medications will be ordered and I would hold off on nephrotoxic medications including ROWAN inhibitors. Otherwise metformin also may be also held also. The overall prognosis guarded. The patient had multiple cardiac workups and history of stent and myocardial infarction in the past. Guarded prognosis. The patient is on multiple medications including Ranexa. Continue to monitor. Further recommendations to follow. Discussed with the patient who understands and agrees. MMODL / IJN: [id number] / ARMAND
--- NOTE | 2017-02-24 20:27 | CONS ---
CONSULTATION Mr. Dunham is a 41-year-old male with multiple admissions to the hospital, presented with hip discomfort. 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 He underwent stenting of the left circumflex at that time, had prior stenting of the LAD. He has a history of ICD implantation because of severe ischemic cardiomyopathy. He has been complaining of hip discomfort, subsequently came into the emergency room and was complaining of some chest discomfort and subsequently admitted. He has symptoms of chest pain on and off at times, chronic. He denies any dizziness or palpitation. No syncope. No PND. No orthopnea. He did not have any recent discharge from the device. He was found recently to have arthritic abnormalities related to his back with disc protrusion in the L4-L5 and L5-S1 with right lower extremity discomfort. His coronary risk factors are remarkable for a history of hypertension, hyperlipidemia and diabetes. He is a nonsmoker. The last cardiac catheterization that I have available to me is from September 2016 done in [facility] by Dr. Peres and at that time, he had mild disease in the LAD, mild disease in the left circumflex with mid chronic occlusion of the RCA. His medication at the time of presentation included: 1. Metformin 1 g twice a day. 2. Sertraline. 3. Crestor 40 mg daily. 4. Ranexa 1 g twice a day. 5. Primidone. 6. Effient 10 mg daily. 7. Omeprazole 40 mg daily. 8. Metoprolol tartrate 50 mg twice a day. 9. Zestril 5 mg daily. 10.Tradjenta. 11.Glimepiride. 12.Gabapentin. 13.Trulicity. 14.Aspirin 81 mg daily. 15.Albuterol and. 16.Aripiprazole. REVIEW OF SYSTEMS: RESPIRATORY: He has no recent wheezing. No cough. He denies any change in his breathing. GI: No recent GI bleeding. No peptic ulcer disease. : No dysuria, hematuria. NERVOUS: Questionable history of stroke. PHYSICAL EXAMINATION: He is a 41-year-old male; alert, oriented, in no apparent distress, has mild discomfort. Blood pressure running in between the 120s to 160s. HEAD: Normocephalic. EYES: Sclerae anicteric. NECK: Good upstroke. No bruits. LUNGS: Clear to auscultation. HEART: Regular rate and rhythm. S1, S2. No S3 with systolic murmur at the base. No diastolic murmur. ICD noted. ABDOMEN: Soft, nontender. Positive bowel sounds. No megaly. Obese. Ecchymosis noted. EXTREMITIES: No edema. LAB DATA: Revealed a BUN and creatinine of 31 and 2.2, which is worse than his most recent admission. Troponin 0.061 and 0.106. NT-proBNP of 1320. Hemoglobin of 11.4. EKG revealed a sinus mechanism with evidence of pacemaker activity. Chest x-ray shows no acute infiltrate. IMPRESSION: 1. Symptoms of chest discomfort of unclear etiology. Patient had a prior admission with elevated elevation of troponin. He had a stent done in December on the EKG. I see no acute changes. The finding could be related to his renal function abnormality. 2. Ischemic cardiomyopathy, status post implantable cardioverter-defibrillator implant. 3. Prior history of stenting of the left anterior descending. 4. Chronic kidney disease, worse than last admission. 5. Hypertension. 6. Hyperlipidemia. 7. Diabetes mellitus. RECOMMENDATION: From the cardiac standpoint, I will hold his lisinopril at this time. I will start him on nitrate and hydralazine. Will try to obtain the prior workup, including his most recent cardiac catheterization and depending on his progress, further recommendation will be made. Thank you for this consult. We will follow with you. BEATRIZ / CHRISTINEN: [id number] /
[2017-02-24 20:44] LABS: Creatine Kinase MB 2.4 ng/mL (0.0-2.4)
[2017-02-24] MEDS: PANTOPRAZOLE 40 MG TABLET PO SCH (20:47)
[2017-02-24] MEDS: RANOLAZINE 500 MG TAB.ER.12H PO SCH (20:47)
[2017-02-24] MEDS: hydrALAZINE HCL 25 MG TAB PO SCH (20:47)
[2017-02-24] MEDS: LINAGLIPTIN 5 MG TABLET PO SCH (20:47)
[2017-02-24] MEDS: PRIMIDONE 50 MG TAB PO SCH (20:47)
[2017-02-24] MEDS: METOPROLOL TARTRATE 50 MG TAB PO SCH (20:47)
[2017-02-24] MEDS: ARIPiprazole 15 MG TAB PO SCH (20:47)
[2017-02-24 20:55] LABS: Troponin I 0.112 ng/mL (0.000-0.034)
[2017-02-24 21:00] LABS: Glucose,Whole Blood 242 mg/dL (75-99)
[2017-02-24] MEDS ORDERED: ROSUVASTATIN CALCIUM 40 MG PO SCH (21:00)
[2017-02-24 22:29] LABS: Hemoglobin A1C 9.2 % (4.2-6.1)
[2017-02-25 06:21] LABS: Glucose,Whole Blood 247 mg/dL (75-99)
[2017-02-25] MEDS: GLIMEPIRIDE 4 MG TAB PO SCH ×2 (06:40→17:16)
[2017-02-25] MEDS: INSULIN LISPRO (humaLOG) 300 UNIT/3 ML VIAL SQ SCH ×4 (06:40→21:29)
[2017-02-25 06:45] LABS: Basophils % (A) 1 %; CHCM 29.3; Eosinophils # (A) 0.2 k/uL (0-0.7); Eosinophils % (A) 3 %; HCT 40.9 % (39.0-53.0); HDW 3.04; HGB 12.3 gm/dL (13.0-17.5); Hypochromasia Marked; Luc # (Auto) 0.15; Luc % (Auto) 2; Lymphocytes # (A) 1.3 k/uL (1.0-4.8); Lymphocytes % (A) 17 %; MCH 26.7 pg (25.0-35.0); Mean Platelet Volume 7.1; Monocytes # (A) 0.4 k/uL (0-1.0); Monocytes % (A) 5 %; Neutrophils # (A) 5.7 k/uL (1.3-7.7); Neutrophils % (A) 74 %; RDW 14.9 % (11.5-15.5); WBC 7.7 k/uL (3.8-10.6); WBC (Perox) 8.21
[2017-02-25 06:46] LABS: Anion Gap 10 mmol/L; Blood Urea Nitrogen 26 mg/dL (9-20); Calcium 8.5 mg/dL (8.4-10.2); Carbon Dioxide 18 mmol/L (22-30); Chloride 109 mmol/L (98-107); Cholesterol 142 mg/dL (<200); Glucose 250 mg/dL (74-99); HDL Cholesterol 45 mg/dL (40-60); Non-African American GFR(MDRD) >60 (>60 ml/min/1.73 sqM); Sodium 137 mmol/L (137-145)
[2017-02-25 06:51] LABS: Potassium 6.2 mmol/L (3.5-5.1)
[2017-02-25] MEDS ORDERED: SODIUM POLYSTYRENE SULFONATE 15 GM/60 ML BOTTLE PO STA (07:01)
[2017-02-25] MEDS: NITROGLYCERIN OINT 1 INCH/GM PACKET TOPICAL SCH (08:29)
[2017-02-25] MEDS: SERTRALINE 100 MG TAB PO SCH (08:34)
[2017-02-25] MEDS: RANOLAZINE 500 MG TAB.ER.12H PO SCH ×2 (08:34→21:30)
[2017-02-25] MEDS: METOPROLOL TARTRATE 50 MG TAB PO SCH ×2 (08:35→21:30)
[2017-02-25] MEDS: GABAPENTIN 400 MG CAP PO SCH ×3 (08:35→21:31)
[2017-02-25] MEDS: CHOLECALCIFEROL 1,000 UNIT TAB PO SCH (08:35)
[2017-02-25] MEDS: ASPIRIN 81 MG PO SCH (08:35)
[2017-02-25] MEDS: hydrALAZINE HCL 25 MG TAB PO SCH ×2 (08:35→21:29)
[2017-02-25] MEDS: LOPERAMIDE 2 MG CAP PO SCH ×3 (08:35→21:31)
[2017-02-25] MEDS: PRASUGREL 10 MG TAB PO SCH (08:35)
[2017-02-25] MEDS ORDERED: ONDANSETRON 4 MG/2 ML VIAL IVP PRN (08:57)
[2017-02-25] MEDS ORDERED: ASPIRIN 325 MG TAB PO SCH (09:00)
[2017-02-25] MEDS ORDERED: LISINOPRIL 5 MG TAB PO SCH (09:00)
[2017-02-25 09:20] VITALS: BMI 41.3
--- NOTE | 2017-02-25 11:21 | P.PN ---
Subjective Progress Note Date: 02/25/17 Principal diagnosis: Chest Pain This is a 41-year-old gentleman with multiple admissions to the hospital, history of coronary artery disease, status post PCI and to December 2016 in [place] with stenting of the left circumflex, history of stenting of the LAD, ICD implantation because of severe ischemic cardiomyopathy, hypertension, hyperlipidemia and diabetes. Presented to the emergency department with complaints of hip discomfort subsequently complain of some chest discomfort and was admitted for further evaluation. He does have symptoms of chest pain on and off at times which is chronic. Laboratory values showed impaired renal function upon admission, this has improved with a BUN of 26 and creatinine 0.9 this morning. EKG showed a ventricular paced rhythm. Patient does have mildly elevated troponins however he has had this during previous admissions as well. In addition, patient is resting comfortably in bed. He denies complaints of shortness of breath or leg pain. He does continue to complain of some chest discomfort with activity but says it's much better today. Objective - Vital Signs Vital signs: Vital Signs Temp 97.8 F 02/25/17 08:00 Pulse 80 02/25/17 08:00 Resp 18 02/25/17 08:00 BP 149/87 02/25/17 08:00 Pulse Ox 97 02/25/17 08:00 Intake & Output 02/24/17 02/25/17 02/25/17 18:59 06:59 18:59 Intake Total 160 Balance 160 Weight 116.1 kg 116.1 kg Intake: Intake, IV Titration 160 Amount Sodium Chloride 0.9% 1, 160 000 ml @ 75 mls/hr IV . [id number] [facility] Rx#:[id number] Other: Voiding Method Toilet # Voids 1 # Bowel Movements 0 - Exam PHYSICAL EXAMINATION: HEENT: Head is atraumatic, normocephalic. Pupils equal, round. Neck is supple. There is no elevated jugular venous pressure. HEART EXAMINATION: Heart sounds regular, S1 and S2 with a systolic murmur at the base. CHEST EXAMINATION: Lungs are clear to auscultation and precussion. No chest wall tenderness is noted on palpation or with deep breathing. ABDOMEN: Soft, nontender. Bowel sounds are heard. No organomegaly noted. EXTREMITIES: No evidence of peripheral edema and no calf tenderness noted. NEUROLOGIC patient is sleeping but easily arousable and oriented x3. . - Labs CBC & Chem 7: 02/25/17 06:17 02/25/17 06:17 Labs: Abnormal Lab Results - Last 24 Hours (Table) 02/24/17 02/24/17 02/24/17 Range/Units 12:38 16:41 19:46 Hgb (13.0-17.5) gm/dL MCHC (31.0-37.0) g/dL Potassium (3.5-5.1) mmol/L Chloride (98-107) mmol/L Carbon Dioxide (22-30) mmol/L BUN (9-20) mg/dL Glucose (74-99) mg/dL POC Glucose (mg/dL) 310 H (75-99) mg/dL Hemoglobin A1c 9.2 H (4.2-6.1) % Troponin I 0.106 H* (0.000-0.034) ng/mL Triglycerides (<150) mg/dL 02/24/17 02/24/17 02/25/17 Range/Units 19:46 20:57 06:17 Hgb (13.0-17.5) gm/dL MCHC (31.0-37.0) g/dL Potassium 6.2 H* (3.5-5.1) mmol/L Chloride 109 H (98-107) mmol/L Carbon Dioxide 18 L (22-30) mmol/L BUN 26 H (9-20) mg/dL Glucose 250 H (74-99) mg/dL POC Glucose (mg/dL) 242 H (75-99) mg/dL Hemoglobin A1c (4.2-6.1) % Troponin I 0.112 H* (0.000-0.034) ng/mL Triglycerides 163 H (<150) mg/dL 02/25/17 02/25/17 Range/Units 06:17 06:19 Hgb 12.3 L (13.0-17.5) gm/dL MCHC 30.0 L (31.0-37.0) g/dL Potassium (3.5-5.1) mmol/L Chloride (98-107) mmol/L Carbon Dioxide (22-30) mmol/L BUN (9-20) mg/dL Glucose (74-99) mg/dL POC Glucose (mg/dL) 247 H (75-99) mg/dL Hemoglobin A1c (4.2-6.1) % Troponin I (0.000-0.034) ng/mL Triglycerides (<150) mg/dL Assessment and Plan Plan: Assessment and plan #1 symptoms of chest discomfort of unclear etiology. Patient had prior admissions with elevated troponins. Had a cath with stenting in December. EKG does not show any acute changes. #2 troponin leak, could be secondary to renal function abnormality #3 ischemic cardiomyopathy, status post ICD implant #4 history of stenting of the left anterior descending and left circumflex arteries #5 acute on chronic kidney disease, improving #6 hypertension #7 hyperlipidemia #8 diabetes mellitus From cardiology perspective, we will discontinue nitro paste and start the patient on oral nitrate. We will monitor the patient for another 24 hours. 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 Peres. Further recommendations to follow. DATASTAGE ARCHITECT note has been reviewed, I agree with a documented findings and plan of care. Patient was seen and examined.
[2017-02-25 12:06] LABS: Glucose,Whole Blood 173 mg/dL (75-99)
[2017-02-25] MEDS: ISOSORBIDE MONONITRATE ER 30 MG TAB.ER.24H PO SCH (12:30)
[2017-02-25] MEDS: SODIUM CHLORIDE 0.9% 1,000 ML IV SCH ×2 (12:31→21:37)
[2017-02-25 14:50] LABS: Anion Gap 8 mmol/L; Blood Urea Nitrogen 23 mg/dL (9-20); Calcium 8.2 mg/dL (8.4-10.2); Carbon Dioxide 22 mmol/L (22-30); Chloride 104 mmol/L (98-107); Glucose 279 mg/dL (74-99); Non-African American GFR(MDRD) >60 (>60 ml/min/1.73 sqM); Potassium 5.3 mmol/L (3.5-5.1); Sodium 134 mmol/L (137-145)
[2017-02-25 16:51] LABS: Glucose,Whole Blood 282 mg/dL (75-99)
[2017-02-25] MEDS: traMADol 50 MG TAB PO SCH ×2 (17:18→21:40)
--- NOTE | 2017-02-25 17:34 | PN ---
PROGRESS NOTE DATE OF SERVICE: 02/25/2017 This 41-year-old gentleman who was admitted with chest pain and leg pain also had acute renal failure. Patient also has hyperkalemia today. Cardiology is following the patient closely and recommended medical treatment. No palpitations. No fever. Patient is complaining of right leg pain. PHYSICAL EXAMINATION: Alert and oriented x3. Pulse 79, blood pressure 124/72, respiration 18, temperature 98 degrees, pulse ox 96% on room air. HEENT: Conjunctivae normal. Oral mucosa moist. NECK: No jugular venous distention. No carotid bruit. No lymph node enlargement. CARDIOVASCULAR: S1, S2 muffled. RESPIRATORY: Breath sounds diminished at the bases. Scattered rhonchi. No crackles. ABDOMEN: Soft, obese, nontender. No mass palpable. LEGS: No edema. No swelling. NERVOUS SYSTEM: Higher functions as mentioned earlier. Moves all 4 limbs. No focal motor or sensory deficit. LYMPHATICS: No lymph node palpable in neck, axillae or groin. SKIN: No ulcer, rash, bleeding. LABS: WBC 7.7, hemoglobin 12.3, potassium 6.2. Repeat potassium is 5.3. ASSESSMENT: 1. Chest pain, possible unstable angina. Rule out acute coronary syndrome with troponin 0.106. 2. Creatinine 2.20 with acute on chronic kidney disease, possible prerenal factors. 3. History of cardiomyopathy. 4. Hyperkalemia secondary to renal failure. 5. Diabetes mellitus, type 2. 6. History of recent dehydration. 7. History of coronary artery disease. 8. Congestive heart failure. 9. Hypertension. 10.Hyperlipidemia. 11.History of diabetic polyneuropathy. 12.History of gastroparesis. 13.History of coronary artery disease and stent. RECOMMENDATIONS AND DISCUSSION: I recommend to continue current medication, continue symptomatic treatment. Monitor blood sugars closely. The patient is complaining of pain in the right leg, possibly multifactorial. Try Ultram if it is not contraindicated. Further recommendations to follow. MMODL / IJN: [id number] /
[2017-02-25 20:59] LABS: Glucose,Whole Blood 243 mg/dL (75-99)
[2017-02-25] MEDS: ARIPiprazole 15 MG TAB PO SCH (21:29)
[2017-02-25] MEDS: LINAGLIPTIN 5 MG TABLET PO SCH (21:29)
[2017-02-25] MEDS: PRIMIDONE 50 MG TAB PO SCH (21:30)
[2017-02-25] MEDS: PANTOPRAZOLE 40 MG TABLET PO SCH (21:30)
[2017-02-25 23:01] LABS: Appearance,Urine Clear (Clear); Bilirubin,Urine Negative (Negative); Glucose,Urine (UA) 3+ (Negative); Ketones,Urine Negative (Negative); Leukocyte Esterase,Urine Negative (Negative); Nitrite,Urine Negative (Negative); Protein,Urine Trace (Negative); Specific Gravity,Urine 1.013 (1.001-1.035); UA Billing (MACRO vs. MICRO) CHEM; Urobilinogen,Urine <2.0 mg/dL (<2.0)
[2017-02-26] MEDS ORDERED: traMADol 50 MG TAB PO PRN (00:50)
[2017-02-26 04:24] VITALS: RESP 18
[2017-02-26 05:47] LABS: Glucose,Whole Blood 230 mg/dL (75-99)
[2017-02-26 06:46] LABS: Basophils % (A) 1 %; CH 25.8; CHCM 29.3; Eosinophils # (A) 0.2 k/uL (0-0.7); Eosinophils % (A) 5 %; HCT 35.2 % (39.0-53.0); HDW 3.05; HGB 10.6 gm/dL (13.0-17.5); Hypochromasia Marked; Luc # (Auto) 0.13; Luc % (Auto) 3; Lymphocytes # (A) 1.5 k/uL (1.0-4.8); Lymphocytes % (A) 30 %; MCH 26.5 pg (25.0-35.0); MCV 88.6 fL (80.0-100.0); Mean Platelet Volume 7.3; Monocytes # (A) 0.3 k/uL (0-1.0); Monocytes % (A) 6 %; Neutrophils # (A) 2.8 k/uL (1.3-7.7); Neutrophils % (A) 56 %; RBC 3.97 m/uL (4.30-5.90); WBC (Perox) 5.22
[2017-02-26] MEDS: INSULIN LISPRO (humaLOG) 300 UNIT/3 ML VIAL SQ SCH ×2 (06:51→12:04)
[2017-02-26] MEDS: GLIMEPIRIDE 4 MG TAB PO SCH (06:51)
[2017-02-26 07:01] LABS: Anion Gap 9 mmol/L; Blood Urea Nitrogen 25 mg/dL (9-20); Calcium 8.4 mg/dL (8.4-10.2); Carbon Dioxide 20 mmol/L (22-30); Chloride 106 mmol/L (98-107); Glucose 240 mg/dL (74-99); Non-African American GFR(MDRD) >60 (>60 ml/min/1.73 sqM); Potassium 5.2 mmol/L (3.5-5.1); Sodium 135 mmol/L (137-145)
[2017-02-26] MEDS: CHOLECALCIFEROL 1,000 UNIT TAB PO SCH (09:24)
[2017-02-26] MEDS: ASPIRIN 81 MG PO SCH (09:24)
[2017-02-26] MEDS: GABAPENTIN 400 MG CAP PO SCH (09:24)
[2017-02-26] MEDS: RANOLAZINE 500 MG TAB.ER.12H PO SCH (09:25)
[2017-02-26] MEDS: SERTRALINE 100 MG TAB PO SCH (09:25)
[2017-02-26] MEDS: hydrALAZINE HCL 25 MG TAB PO SCH (09:25)
[2017-02-26] MEDS: LOPERAMIDE 2 MG CAP PO SCH (09:25)
[2017-02-26] MEDS: ISOSORBIDE MONONITRATE ER 30 MG TAB.ER.24H PO SCH (09:25)
[2017-02-26] MEDS: METOPROLOL TARTRATE 50 MG TAB PO SCH (09:25)
[2017-02-26 11:43] VITALS: BP 123/62; PULSE 71; TEMP 97
[2017-02-26 11:44] LABS: Glucose,Whole Blood 269 mg/dL (75-99)
[2017-02-26] MEDS: PRASUGREL 10 MG TAB PO SCH (11:46)
[2017-02-26] MEDS: SODIUM CHLORIDE 0.9% 1,000 ML IV SCH (12:03)
--- NOTE | 2017-02-26 14:53 | P.PN ---
Subjective Progress Note Date: 02/26/17 Principal diagnosis: Chest Pain This is a 41-year-old gentleman with multiple admissions to the hospital, history of coronary artery disease, status post PCI and to December 2016 in [place] with stenting of the left circumflex, history of stenting of the LAD, ICD implantation because of severe ischemic cardiomyopathy, hypertension, hyperlipidemia and diabetes. Presented to the emergency department with complaints of hip discomfort subsequently complain of some chest discomfort and was admitted for further evaluation. He does have symptoms of chest pain on and off at times which is chronic. Laboratory values showed impaired renal function upon admission, this has improved with a BUN of 25 and creatinine 1.1 this morning. EKG showed a ventricular paced rhythm. Patient does have mildly elevated troponins however he has had this during previous admissions as well. We started him on Imdur yesterday. His blood pressure is better controlled and he has no further c/o chest discomfort. Objective - Vital Signs Vital signs: Vital Signs Temp 97 F L 02/26/17 11:39 Pulse 71 02/26/17 11:39 Resp 18 02/26/17 11:39 BP 123/62 02/26/17 11:39 Pulse Ox 94 L 02/26/17 11:39 Intake & Output 02/25/17 02/26/17 02/26/17 18:59 06:59 18:59 Intake Total 600 1800 480 Balance 600 1800 480 Weight 116.1 kg 119.7 kg Intake: IV 1800 Sodium Chloride 0.9% 1, 1800 000 ml @ 75 mls/hr IV . [id number] [facility] Rx#:[id number] Oral 600 480 Other: Voiding Method Toilet Toilet Toilet # Voids 3 1 # Bowel Movements 0 - Exam PHYSICAL EXAMINATION: HEENT: Head is atraumatic, normocephalic. Pupils equal, round. Neck is supple. There is no elevated jugular venous pressure. HEART EXAMINATION: Heart sounds regular, S1 and S2 with a systolic murmur at the base. CHEST EXAMINATION: Lungs are clear to auscultation and precussion. No chest wall tenderness is noted on palpation or with deep breathing. ABDOMEN: Soft, nontender. Bowel sounds are heard. No organomegaly noted. EXTREMITIES: No evidence of peripheral edema and no calf tenderness noted. NEUROLOGIC patient is sleeping but easily arousable and oriented x3. . - Labs CBC & Chem 7: 02/26/17 06:09 02/26/17 06:09 Labs: Abnormal Lab Results - Last 24 Hours (Table) 02/25/17 02/25/17 02/25/17 Range/Units 14:14 15:42 16:47 RBC (4.30-5.90) m/uL Hgb (13.0-17.5) gm/dL Hct (39.0-53.0) % MCHC (31.0-37.0) g/dL Sodium 134 L (137-145) mmol/L Potassium 5.3 H 5.4 H (3.5-5.1) mmol/L Carbon Dioxide (22-30) mmol/L BUN 23 H (9-20) mg/dL Glucose 279 H (74-99) mg/dL POC Glucose (mg/dL) 282 H (75-99) mg/dL Calcium 8.2 L (8.4-10.2) mg/dL Urine Protein (Negative) Urine Glucose (UA) (Negative) 02/25/17 02/25/17 02/26/17 Range/Units 20:58 22:28 05:45 RBC (4.30-5.90) m/uL Hgb (13.0-17.5) gm/dL Hct (39.0-53.0) % MCHC (31.0-37.0) g/dL Sodium (137-145) mmol/L Potassium (3.5-5.1) mmol/L Carbon Dioxide (22-30) mmol/L BUN (9-20) mg/dL Glucose (74-99) mg/dL POC Glucose (mg/dL) 243 H 230 H (75-99) mg/dL Calcium (8.4-10.2) mg/dL Urine Protein Trace H (Negative) Urine Glucose (UA) 3+ H (Negative) 02/26/17 02/26/17 02/26/17 Range/Units 06:09 06:09 11:43 RBC 3.97 L (4.30-5.90) m/uL Hgb 10.6 L (13.0-17.5) gm/dL Hct 35.2 L (39.0-53.0) % MCHC 30.0 L (31.0-37.0) g/dL Sodium 135 L (137-145) mmol/L Potassium 5.2 H (3.5-5.1) mmol/L Carbon Dioxide 20 L (22-30) mmol/L BUN 25 H (9-20) mg/dL Glucose 240 H (74-99) mg/dL POC Glucose (mg/dL) 269 H (75-99) mg/dL Calcium (8.4-10.2) mg/dL Urine Protein (Negative) Urine Glucose (UA) (Negative) Assessment and Plan Plan: Assessment and plan #1 symptoms of chest discomfort of unclear etiology. Patient had prior admissions with elevated troponins. Had a cath with stenting in December. EKG does not show any acute changes. Improved with Imdur. #2 troponin leak, could be secondary to renal function abnormality #3 ischemic cardiomyopathy, status post ICD implant #4 history of stenting of the left anterior descending and left circumflex arteries #5 acute on chronic kidney disease, improving #6 hypertension #7 hyperlipidemia #8 diabetes mellitus From cardiology perspective, patient is stable for discharge home. 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 Peres as an outpatient. ELECTRICIAN OFFICE note has been reviewed, I agree with a documented findings and plan of care. Patient was seen and examined.
--- NOTE | 2017-02-26 15:44 | P.DS ---
Providers Date of admission: 02/24/17 09:11 Attending physician: Safia Clay Consults: 02/24/17 09:11 Consult Physician Urgent Consulting Provider: Percy Alcaraz Consult Reason/Comments: cp Do you want consulting provider notified?: Yes Primary care physician: [facility] Course: This 41-year-old gentleman with a past medical history multiple medical problems was admitted with the chest pain. The patient had indeterminate troponin at 0.106. Cardiology saw the patient. Patient also renal failure and other multiple medical issues. Medications are adjusted. Cardiology recommended the patient be discharged follow-up in the preceding. Patient patient be discharged in a stable condition with guarded prognosis. Patient understands and agrees On exam vitals stable. Cardio S1 and S2 normal. Respirator system clear to auscultation. Abdomen soft nontender. Final diagnoses 1. Chest pain possibly unstable angina. 2. Troponin 0.106. Indeterminate. 2. Creatinine 2.2 was admitted with acute on chronic kidney disease possibly prerenal factors. 4. History of cardio myopathy. 5. Hyperkalemia secondary to renal failure. 6. Diabetes was type II. 67. History of recent dehydration. 8. History of CAD. Patient Condition at Discharge: Undetermined Plan - Discharge Summary New Discharge Prescriptions: New hydrALAZINE HCL [Apresoline] 25 mg PO BID #60 tab Isosorbide Mononitrate ER [Imdur] 30 mg PO DAILY #30 tab traMADol HCl [Ultram] 50 mg PO Q8H PRN #30 tab PRN Reason: pain Continue Nitroglycerin Sl Tabs [Nitrostat] 0.4 mg SUBLINGUAL Q5M PRN PRN Reason: Chest Pain metFORMIN HCL 1,000 mg PO BID Omeprazole [PriLOSEC] 40 mg PO HS Glimepiride 4 mg PO BID Dulaglutide [Trulicity] 1.5 mg SQ OROZCO Rosuvastatin Calcium 40 mg PO HS Ranolazine [Ranexa] 1,000 mg PO BID Primidone [Mysoline] 100 mg PO HS Prasugrel [Effient] 10 mg PO DAILY tab Metoprolol Tartrate 50 mg PO BID Loperamide [Imodium] 2 mg PO TID Aspirin EC [Ecotrin Low Dose] 81 mg PO DAILY Cholecalciferol (Vitamin D3) [Vitamin D3] 2,000 unit PO DAILY Linagliptin [Tradjenta] 5 mg PO HS Sertraline HCl [Zoloft] 200 mg PO DAILY #28 ARIPiprazole [ARIPiprazole Odt] 15 mg PO HS Albuterol Inhaler [Ventolin Hfa Inhaler] 2 puff INHALATION RT-QID PRN PRN Reason: Shortness Of Breath Lisinopril [Zestril] 5 mg PO DAILY #30 tab Gabapentin [Neurontin] 400 mg PO TID Discharge Medication List Nitroglycerin Sl Tabs [Nitrostat] 0.4 mg SUBLINGUAL Q5M PRN 10/13/13 [History] metFORMIN HCL 1,000 mg PO BID 07/03/15 [History] Omeprazole [PriLOSEC] 40 mg PO HS 08/13/15 [History] Dulaglutide [Trulicity] 1.5 mg SQ OROZCO 03/10/16 [History] Glimepiride 4 mg PO BID 03/10/16 [History] Rosuvastatin Calcium 40 mg PO HS 05/05/16 [History] Ranolazine [Ranexa] 1,000 mg PO BID 06/09/16 [History] Primidone [Mysoline] 100 mg PO HS 06/30/16 [History] Prasugrel [Effient] 10 mg PO DAILY tab 07/01/16 [Rx] Loperamide [Imodium] 2 mg PO TID 10/20/16 [History] Metoprolol Tartrate 50 mg PO BID 10/20/16 [History] Aspirin EC [Ecotrin Low Dose] 81 mg PO DAILY 11/07/16 [History] Cholecalciferol (Vitamin D3) [Vitamin D3] 2,000 unit PO DAILY 11/07/16 [History] Linagliptin [Tradjenta] 5 mg PO HS 12/19/16 [History] Sertraline HCl [Zoloft] 200 mg PO DAILY #28 01/27/17 [Rx] ARIPiprazole [ARIPiprazole Odt] 15 mg PO HS 02/14/17 [History] Albuterol Inhaler [Ventolin Hfa Inhaler] 2 puff INHALATION RT-QID PRN 02/14/17 [ History] Lisinopril [Zestril] 5 mg PO DAILY #30 tab 02/17/17 [Rx] Gabapentin [Neurontin] 400 mg PO TID 02/24/17 [History] Isosorbide Mononitrate ER [Imdur] 30 mg PO DAILY #30 tab 02/26/17 [Rx] hydrALAZINE HCL [Apresoline] 25 mg PO BID #60 tab 02/26/17 [Rx] traMADol HCl [Ultram] 50 mg PO Q8H PRN #30 tab 02/26/17 [Rx] Follow up Appointment(s)/Referral(s): Junie New MD [Primary Care Provider] - 1-2 days (02/27 at 11:00am) Ambulatory/Diagnostic Orders: Complete Blood Count w/diff [LAB.AMB] Location: Determined By Patient Patient Instructions/Handouts: Hyperkalemia (DC), Hypertensive Crisis (DC) Activity/Diet/Wound Care/Special Instructions: Diet cardiac Activity Limited until follow up 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 Follow-up with the patient's orthopedic surgery for evaluation and continued management of back pain and leg pain on the right side. Discharge Disposition: HOME SELF-CARE
[2017-03-01] MEDS ORDERED: NON-FORMULARY DRUG (Dulaglutide [Trulicity] 1.5 MG) SQ SCH (13:46)
--- NOTE | 2017-03-02 15:28 | CDI ---
In responding to this query, please exercise your independent professional judgment. The [facility] Coding Staff and Clinical Documentation Specialists appreciate your assistance in clarifying documentation, maintaining compliance with coding guidelines, accurately documenting patients condition and capturing severity of illness. The fact that a question is asked does not imply that any particular answer is desired or expected. Communication forms are a method of clarifying documentation and are not made part of the Legal Health Record. Thank you in advance for your clarification. Last Revision, July 2016 Fabio May [address] [place] [address] Documentation Clarification Form Date: 03/02/2017 3:17:00 PM From: Orly Scarlett Phone: Admit Date: 02/24/2017 9:11:00 AM Patient Name: Ti Dunham Visit Number: [id number] Discharge Date: Dr. Safia Clay CHF is documented in the past medical history of the ED report and the history and physical. It is also listed in your 02/25 progress note. History/Risk Factors: Patient has a history of ischemic cardiomyopathy, hypertension and coronary artery disease. VS/Pulse OX: T. 98/98.5, P. 90, R. 17, BP 196/121, Pulse ox. 99 down to 94 on day of admit. BNP: 1320 Chest X Ray: No acute process. In your professional opinion, can you please clarify the acuity and type of CHF if known? Systolic Heart Failure: Acute Chronic Acute on Chronic Diastolic Heart Failure: Acute Chronic Acute on Chronic Systolic & Diastolic Heart Failure: Acute Chronic Acute on Chronic Unable to determine Other, please specify Please document in your discharge summary in order to capture severity of illness and risk of mortality. Include clinical findings that support your diagnosis. FYI: Press F11 to launch patient chart. If you have a question about this query, please contact Sabrina Hurst, automotive finance manager at [phone] between 8am and 5pm. ARMAND
--- NOTE | 2017-03-02 15:42 | CDI ---
In responding to this query, please exercise your independent professional judgment. The [facility] Coding Staff and Clinical Documentation Specialists appreciate your assistance in clarifying documentation, maintaining compliance with coding guidelines, accurately documenting patients condition and capturing severity of illness. The fact that a question is asked does not imply that any particular answer is desired or expected. Communication forms are a method of clarifying documentation and are not made part of the Legal Health Record. Thank you in advance for your clarification. Last Revision, March 2015 Fabio May [address] [place] [address] Documentation Clarification Form Date: 03/02/2017 3:17:00 PM From: Orly Scarlett Phone: Admit Date: 02/24/2017 9:11:00 AM Patient Name: Ti Dunham Visit Number: [id number] Discharge Date: Dr. Safia Clay History/Risk Factors : Patient has a history of renal failure and hypertension. Acute renal failure is documented in the 02/25 progress note. Current BUN/CR/GFR: 31/2.20/33 on admission. Patients Baseline: BUN/CR/GFR: 25/1.10/>60 on day of discharge. Clinical Indicators : Patient has hyperkalemia secondary to renal failure per documentation in the 02/25 progress note and the discharge summary. Patients medications include: IVF: Sodium Chloride 1000 mls @ @500 then @75 In order to capture the severity of condition, please clarify if the condition signifies: CKD Stage 1 (GFR > 90) CKD Stage 2 (GFR 60-89) CKD Stage 3 (GFR 30-59) CKD Stage 4 (GFR 15-29) CKD Stage 5 (GFR <15) ESRD Unable to determine Other condition, please specify Please document in your discharge summary in order to capture severity of illness and risk of mortality. Include clinical findings that support your diagnosis. FYI: Press F11 to launch patient chart. If you have a question about this query, please contact Sabrina Hurst manager city at [phone] between 8am and 5 pm. Already documented- acute renal failure only MTDD
--- NOTE | 2017-03-07 18:48 | PN ---
PROGRESS NOTE ADDENDUM: Congestive heart failure with chronic systolic dysfunction, ejection fraction 20% to 25%. MMODL / IJN: [id number] /
== END 2017-02-26 15:10 | disposition home or self-care (01) | DRG 303 ==
LOC: EC 05:49 → 6SEL 09:11
PROVIDERS: ADMIT Hospitalist; ATTEND Hospitalist
DX: I25.110 Atherosclerotic heart disease of native coronary artery with unstable angina pectoris (principal); N17.9 Acute kidney failure, unspecified; I13.0 Hypertensive heart and chronic kidney disease with heart failure and stage 1 through stage 4 chronic kidney disease, or unspecified chronic kidney disease; I50.22 Chronic systolic (congestive) heart failure; E11.22 Type 2 diabetes mellitus with diabetic chronic kidney disease; E87.5 Hyperkalemia; K31.84 Gastroparesis; E11.42 Type 2 diabetes mellitus with diabetic polyneuropathy; E11.43 Type 2 diabetes mellitus with diabetic autonomic (poly)neuropathy; N18.9 Chronic kidney disease, unspecified; E78.5 Hyperlipidemia, unspecified; E86.0 Dehydration; F43.10 Post-traumatic stress disorder, unspecified; G47.30 Sleep apnea, unspecified; I25.2 Old myocardial infarction; I25.5 Ischemic cardiomyopathy; J45.909 Unspecified asthma, uncomplicated; K21.9 Gastro-esophageal reflux disease without esophagitis; M51.26 Other intervertebral disc displacement, lumbar region; M51.27 Other intervertebral disc displacement, lumbosacral region; F32.9 Major depressive disorder, single episode, unspecified; F41.9 Anxiety disorder, unspecified; G89.29 Other chronic pain; M54.9 Dorsalgia, unspecified; L40.9 Psoriasis, unspecified; K29.50 Unspecified chronic gastritis without bleeding; M19.90 Unspecified osteoarthritis, unspecified site; Z79.82 Long term (current) use of aspirin; Z79.899 Other long term (current) drug therapy; Z79.84 Long term (current) use of oral hypoglycemic drugs; Z79.01 Long term (current) use of anticoagulants; Z95.810 Presence of automatic (implantable) cardiac defibrillator; Z95.5 Presence of coronary angioplasty implant and graft; Z86.14 Personal history of Methicillin resistant Staphylococcus aureus infection; Z88.5 Allergy status to narcotic agent; Z88.0 Allergy status to penicillin; Z88.8 Allergy status to other drugs, medicaments and biological substances; Z88.1 Allergy status to other antibiotic agents; Z91.041 Radiographic dye allergy status; Z82.49 Family history of ischemic heart disease and other diseases of the circulatory system
CPT/HCPCS: 36415; 71020; 80048; 80053; 80061; 81003; 82550; 82553; 83036; 83690; 83735; 83880; 84132; 84484; 85025; 85610; 85730; 93005; 94760; 96361; 96374; 99291

== ENCOUNTER 2017-03-01 19:20 | Inpatient (IN) | payer MEDICARE, OTHER ==
[2017-03-01] MEDS ORDERED: HYDROmorphone 1 MG/ML 1 ML SYRINGE IVP STA (20:37)
[2017-03-01] MEDS ORDERED: methylPREDNISolone SOD SUCCI 125 MG/2 ML VIAL IV STA (20:37)
[2017-03-01] MEDS ORDERED: ONDANSETRON 4 MG/2 ML VIAL IVP PRN (21:46)
[2017-03-01] MEDS ORDERED: HYDROmorphone 1 MG/ML 1 ML SYRINGE IVP PRN (21:46)
[2017-03-01] MEDS ORDERED: NALOXONE 0.4 MG/ML 1 ML VIAL IV PRN (21:46)
[2017-03-01] MEDS ORDERED: ALBUTEROL NEBULIZED 2.5 MG/3 ML INHALATION PRN (21:49)
--- NOTE | 2017-03-01 21:52 | ED ---
Back Pain HPI - General Chief Complaint: Back Pain/Injury Stated Complaint: back pain Time Seen by Provider: 03/01/17 19:50 Source: patient Limitations: no limitations - History of Present Illness Initial Comments: 41-year-old male with past medical history of asthma, CAD with stenting to the LAD and left circumflex (last echo 12/30/2016: Severe CM with LVH and EF 25-30%) heart failure, poorly controlled diabetes, leukemia, poorly controlled hypertension, NV, sleep apnea, diabetic neuropathy, gastritis, depression, gastroparesis, psoriasis, TIA, peptic ulcer disease, pseudoaneurysm left groin... Presenting for evaluation of radicular back pain that radiates down bilateral legs all the way to the feet. He states that he has had this for some time however over the last couple weeks he has had urinary and bowel incontinence as well as right lower extremity weakness. He states that he was scheduled for a neurosurgical consult on March 25 but due to his symptoms continuing and recurrent bathroom accidents he came to the ER tonight. He states that he has not been seen for these symptoms in the past and he has not discussed them with his primary care physician. He does have a history of a CT lumbar spine on that showed L4-L5 broad-based posterior disc protrusion effacing the thecal sac and L5-S1 broad-based posterior disc protrusion with preserved spinal canal. During that admission he also had a brain CT that showed noticeable cerebral and she P4 his age however no other significant abnormalities. He recently had a venous Doppler on 02/23/17 that showed no right lower extremity DVT. - Related Data Home Medications Medication Instructions Recorded Confirmed Nitroglycerin Sl Tabs [Nitrostat] 0.4 mg SUBLINGUAL Q5M PRN 10/13/13 03/01/17 metFORMIN HCL 1,000 mg PO BID 07/03/15 03/01/17 Omeprazole [PriLOSEC] 40 mg PO HS 08/13/15 03/01/17 Dulaglutide [Trulicity] 1.5 mg SQ OROZCO 03/10/16 03/01/17 Glimepiride 4 mg PO BID 03/10/16 03/01/17 Rosuvastatin Calcium 40 mg PO HS 05/05/16 03/01/17 Ranolazine [Ranexa] 1,000 mg PO BID 06/09/16 03/01/17 Primidone [Mysoline] 100 mg PO HS 06/30/16 03/01/17 Loperamide [Imodium] 2 mg PO TID 10/20/16 03/01/17 Metoprolol Tartrate 50 mg PO BID 10/20/16 03/01/17 Aspirin EC [Ecotrin Low Dose] 81 mg PO DAILY 11/07/16 03/01/17 Cholecalciferol (Vitamin D3) 2,000 unit PO DAILY 11/07/16 03/01/17 [Vitamin D3] Linagliptin [Tradjenta] 5 mg PO HS 12/19/16 03/01/17 ARIPiprazole [ARIPiprazole Odt] 15 mg PO HS 02/14/17 03/01/17 Albuterol Inhaler [Ventolin Hfa 2 puff INHALATION RT-QID PRN 02/14/17 03/01/17 Inhaler] Gabapentin [Neurontin] 400 mg PO TID 02/24/17 03/01/17 Previous Rx's Medication Instructions Recorded Prasugrel [Effient] 10 mg PO DAILY tab 07/01/16 Sertraline HCl [Zoloft] 200 mg PO DAILY #28 01/27/17 Lisinopril [Zestril] 5 mg PO DAILY #30 tab 02/17/17 Isosorbide Mononitrate ER [Imdur] 30 mg PO DAILY #30 tab 02/26/17 hydrALAZINE HCL [Apresoline] 25 mg PO BID #60 tab 02/26/17 traMADol HCl [Ultram] 50 mg PO Q8H PRN #30 tab 02/26/17 Allergies Allergy/AdvReac Type Severity Reaction Status Date / Time erythromycin base Allergy Severe Swelling Verified 03/01/17 19:56 [Erythromycin Base] codeine Allergy Unknown Swelling Verified 03/01/17 19:56 meclizine Allergy Unknown Unknown Verified 03/01/17 19:56 Penicillins Allergy Unknown Rash/Hives Verified 03/01/17 19:56 shellfish derived Allergy Unknown Anaphylaxis Verified 03/01/17 19:56 Fish Containing Products Allergy Anaphylaxis Verified 03/01/17 19:56 [Fish] Iodinated Contrast- Oral and Allergy Anaphylaxis Verified 03/01/17 19:56 IV Dye cephalexin monohydrate AdvReac Unknown Nausea & Verified 03/01/17 19:56 [From Keflex] Vomiting naproxen AdvReac Unknown Compromises Verified 03/01/17 19:56 Kidney Function atorvastatin calcium AdvReac Myalgia Verified 03/01/17 19:56 [From Lipitor] hydrocodone [From [place]] AdvReac Rapid Verified 03/01/17 19:56 Heart Rate Review of Systems ROS Statement: Those systems with pertinent positive or pertinent negative responses have been documented in the HPI. ROS Other: All systems not noted in ROS Statement are negative. Constitutional: Denies: fever, chills, weight change, night sweats Eyes: Denies: eye pain, vision change ENT: Denies: dental pain, congestion Respiratory: Denies: cough, dyspnea, wheezes Cardiovascular: Denies: chest pain, dyspnea on exertion, syncope Endocrine: Denies: fatigue, heat or cold intolerance Gastrointestinal: Reports: nausea. Denies: abdominal pain, vomiting Genitourinary: Reports: other (Urinary incontinence). Denies: dysuria Musculoskeletal: Reports: back pain (With bilateral radiculopathy worse on the right compared to the left). Denies: joint swelling Skin: Denies: rash, lesions Neurological: Reports: other (Right lower extremity weakness compared to the left however there is no saddle anesthesia). Denies: headache, weakness, numbness, paresthesias, confusion Psychiatric: Denies: anxiety, depression Hematological/Lymphatic: Denies: easy bleeding, easy bruising Past Medical History Past Medical History: Asthma, Coronary Artery Disease (CAD), Chest Pain / Angina , Heart Failure, CVA/TIA, Diabetes Mellitus, GERD/Reflux, Hyperlipidemia, Hypertension, Myocardial Infarction (NV), Osteoarthritis (OA), Pneumonia, Skin Disorder, Sleep Apnea/CPAP/BIPAP Additional Past Medical History / Comment(s): Pt recently admitted to [facility] on with nausea/vomiting, dehydration and hypotension. Other Hx: Coronary artery disease with multiple vessel disease, ischemic cardiomyopathy, diabetic neuropathy bilateral hands and feet, hypertensive cardiovascular disease, chronic gastritis, disc disease, chronic back pain, depression with hx of suicide attempts, GASTROPARESIS, PSORIASES,NIDDM type II, UTI, migraines, TIA, PUD, hiatal hernia, L rotator cuff tear, bronchitis, pseudoaneurysm L groin post procedure. Last Myocardial Infarction Date:: 06/03/16 per pt. History of Any Multi-Drug Resistant Organisms: MRSA Date of last positivie culture/infection: 06/09/16 MDRO Source:: face Past Surgical History: AICD, Appendectomy, Cholecystectomy, Heart Catheterization With Stent, Hernia Repair Additional Past Surgical History / Comment(s): Pt has had multiple cardiac procedures-caths/PTCA/stenting with last stent place 2 weeks ago at [facility]-Sept. 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 Past Anesthesia/Blood Transfusion Reactions: No Reported Reaction Additional Past Anesthesia/Blood Transfusion Reaction / Comment(s): . Date of Last Stent Placement:: 06/03/16 Type of Cardiac Device: Biventricular Pacemaker, AICD Device Placement Date:: 09/19/15 Past Psychological History: Anxiety, Depression, PTSD Smoking Status: Never smoker - Past Family History Mother Family Medical History: Coronary Artery Disease (CAD), Myocardial Infarction (NV ) Additional Family Medical History / Comment(s): 7 NV and faulty heart valve. Pt does not know the age when mother had her MIs. Father History Unknown: Yes Additional Family Medical History / Comment(s): Does not know who father is Brother(s) Family Medical History: Congestive Heart Failure (CHF), Myocardial Infarction ( NV) Additional Family Medical History / Comment(s): Parkinsons. Pt does not know at what age his brother had a NV Patient has Family Medical History: No Reported History Additional Family Medical History / Comment(s): There is a strong family history for heart disease, hypertension, and diabetes. General Exam Limitations: no limitations General appearance: alert, in no apparent distress Head exam: Present: atraumatic, normocephalic, normal inspection Eye exam: Present: normal appearance, PERRL, EOMI. Absent: scleral icterus, conjunctival injection, periorbital swelling ENT exam: Present: normal exam, mucous membranes moist Neck exam: Present: normal inspection. Absent: tenderness, meningismus, lymphadenopathy Respiratory exam: Present: normal lung sounds bilaterally. Absent: respiratory distress, wheezes, rales, rhonchi, stridor Cardiovascular Exam: Present: normal rhythm, tachycardia, normal heart sounds. Absent: systolic murmur, diastolic murmur, rubs, gallop, clicks GI/Abdominal exam: Present: soft, normal bowel sounds. Absent: distended, tenderness, guarding, rebound, rigid Rectal exam: Present: deferred Extremities exam: Present: normal capillary refill, other. Absent: calf tenderness Back exam: Present: tenderness, paraspinal tenderness. Absent: normal inspection, full ROM, rash noted Neurological exam: Present: alert, oriented X3, other (Decreased reflexes to the right lower extremity markedly diminished compared to the left; sensation intact to the medial thigh bilaterally as well as perineum). Absent: reflexes normal Psychiatric exam: Present: normal affect, normal mood Skin exam: Present: warm, dry, intact, normal color. Absent: rash Course Vital Signs 03/01/17 03/01/17 03/01/17 19:28 21:02 21:31 Temperature 98.5 F Pulse Rate 114 H 98 101 H Respiratory 18 18 20 Rate Blood Pressure 129/80 173/96 187/83 O2 Sat by Pulse 97 95 94 L Oximetry 03/01/17 22:28 Temperature Pulse Rate 89 Respiratory 18 Rate Blood Pressure 158/74 O2 Sat by Pulse 98 Oximetry Medical Decision Making - Medical Decision Making 41-year-old male with medical history as outlined above presented for evaluation of back pain with radicular radiation down bilateral legs, right lower extremity weakness, urinary and bowel incontinence for the last 2 weeks. On physical examination he does have decreased strength on the right leg compared to the left and there is diminished reflexes on the right compared to the left as well. There is no saddle anesthesia and rectal tone is intact. Posterior right residual was 162 mL and he was able to void 100 mL. Patient was discussed with Dr. Marroquin and Dr. Ziegler and although initial recommendation was to transfer to neurosurgery, it was decided that the pt would be given the option to be admitted to this facility for evaluation by Dr. Pryor tomorrow and transfer if findings were concerning for spinal compression. Given the length of symptoms, lack of poor rectal tone, saddle anesthesia and large PVR, the pt was deemed stable to admit. Patient was also given the option for transfer versus admission and he requested that he be admitted to this facility at this time. ASHER Aguilar accepted the admission for Dr. Clay and requested consult with Dr. Pryor. Labs sent and CT myelogram ordered. Admission order placed and bed request submitted. - Lab Data Result diagrams: 10/08/17 22:20 Disposition Clinical Impression: Back pain, Radiculopathy of lumbar region, Decreased reflex of lower extremity Disposition: ADMITTED IP TO THIS [facility] Decision to Admit Reason: Admit from EC Decision Date: 03/01/17 Decision Time: 21:51
[2017-03-01] MEDS ORDERED: NON-FORMULARY DRUG (Dulaglutide [Trulicity] 1.5 MG) SQ SCH (22:00)
[2017-03-01 22:29] VITALS: RESP 18
[2017-03-01 22:38] LABS: Basophils % (A) 0 %; CH 26.5; CHCM 31.4; Eosinophils # (A) 0.1 k/uL (0-0.7); Eosinophils % (A) 2 %; HCT 38.8 % (39.0-53.0); HDW 3.24; HGB 12.4 gm/dL (13.0-17.5); Hypochromasia Moderate; Luc # (Auto) 0.12; Luc % (Auto) 3; Lymphocytes % (A) 21 %; MCH 27.2 pg (25.0-35.0); MCV 84.7 fL (80.0-100.0); Mean Platelet Volume 7.4; Monocytes # (A) 0.2 k/uL (0-1.0); Monocytes % (A) 4 %; Neutrophils # (A) 3.3 k/uL (1.3-7.7); Neutrophils % (A) 70 %; RBC 4.58 m/uL (4.30-5.90); WBC 4.7 k/uL (3.8-10.6); WBC (Perox) 5.02
[2017-03-01 22:47] LABS: Appearance,Urine Clear (Clear); Bilirubin,Urine Negative (Negative); Glucose,Urine (UA) 4+ (Negative); Ketones,Urine Trace (Negative); Leukocyte Esterase,Urine Negative (Negative); Mucus,Urine Rare /hpf; Nitrite,Urine Negative (Negative); Particle Count 997; Protein,Urine 2+ (Negative); RBC,Urine 4 /hpf (0-5); Specific Gravity,Urine 1.026 (1.001-1.035); UA Billing (MACRO vs. MICRO) MICRO; WBC,Urine <1 /hpf (0-5)
[2017-03-01] MEDS: LOPERAMIDE 2 MG CAP PO SCH (23:06)
[2017-03-01] MEDS: DEXTROSE 5%-0.45% NACL 1,000 ML IV SCH (23:06)
[2017-03-01] MEDS: GABAPENTIN 400 MG CAP PO SCH (23:07)
[2017-03-01 23:12] LABS: Anion Gap 8 mmol/L; Blood Urea Nitrogen 14 mg/dL (9-20); Calcium 9.9 mg/dL (8.4-10.2); Carbon Dioxide 26 mmol/L (22-30); Chloride 101 mmol/L (98-107); Glucose 291 mg/dL (74-99); Non-African American GFR(MDRD) >60 (>60 ml/min/1.73 sqM); Potassium 4.3 mmol/L (3.5-5.1); Sodium 135 mmol/L (137-145)
[2017-03-02] MEDS ORDERED: diphenhydrAMINE 25 MG CAP PO PRN (00:22)
[2017-03-02] MEDS: KETOROLAC 30 MG/ML 1 ML VIAL IVP PRN ×2 (03:19→13:39)
[2017-03-02] MEDS: DEXTROSE 5%-0.45% NACL 1,000 ML IV SCH (05:35)
[2017-03-02 07:01] LABS: Basophils % (A) 0 %; CH 26.4; CHCM 30.3; Eosinophils % (A) 0 %; HCT 41.8 % (39.0-53.0); HDW 3.11; HGB 12.7 gm/dL (13.0-17.5); Hypochromasia Marked; Luc # (Auto) 0.02; Luc % (Auto) 0; Lymphocytes # (A) 0.5 k/uL (1.0-4.8); Lymphocytes % (A) 9 %; MCH 26.6 pg (25.0-35.0); MCHC 30.5 g/dL (31.0-37.0); MCV 87.4 fL (80.0-100.0); Mean Platelet Volume 7.1; Monocytes # (A) 0.1 k/uL (0-1.0); Monocytes % (A) 2 %; Neutrophils # (A) 4.7 k/uL (1.3-7.7); Neutrophils % (A) 89 %; RBC 4.78 m/uL (4.30-5.90); RDW 14.8 % (11.5-15.5); WBC 5.3 k/uL (3.8-10.6)
[2017-03-02 07:17] LABS: Anion Gap 13 mmol/L; Blood Urea Nitrogen 18 mg/dL (9-20); Calcium 9.5 mg/dL (8.4-10.2); Carbon Dioxide 20 mmol/L (22-30); Chloride 101 mmol/L (98-107); Non-African American GFR(MDRD) >60 (>60 ml/min/1.73 sqM); Potassium 5.2 mmol/L (3.5-5.1); Sodium 134 mmol/L (137-145)
[2017-03-02 07:25] LABS: Glucose 491 mg/dL (74-99)
[2017-03-02] MEDS ORDERED: metFORMIN 500 MG TAB PO SCH (07:30)
[2017-03-02] MEDS ORDERED: GLIMEPIRIDE 4 MG TAB PO SCH (07:30)
[2017-03-02] MEDS ORDERED: INSULIN REGULAR BOLUS (FROM DRIP BAG) IV ONE (07:50)
[2017-03-02] MEDS: MORPHINE SULFATE 4 MG/ML SYRINGE IV PRN ×2 (08:02→12:00)
[2017-03-02] MEDS ORDERED: diphenhydrAMINE 50 MG/ML 1 ML VIAL IVP STA (08:05)
[2017-03-02] MEDS ORDERED: INSULIN REGULAR 100 UNIT in SODIUM CHLORIDE 0.9% 100 ML IV SCH (08:15)
--- NOTE | 2017-03-02 08:58 | P.CNOR ---
History of Present Illness - [facility] Consult reason: low back pain, other (Right lower extremity weakness) History of present illness: Patient is a very pleasant 41-year-old male who is seen and examined at the bedside for further evaluation for his significant low back pain, bilateral lower extremity leg pain, right lower extremity weakness, and bowels and bladder incontinence. Patient states over the past couple weeks he has had increasing difficulties with all of these symptoms. He was scheduled to see a neurologist in March 2017 but states his symptoms were too severe and he presented to [facility] for further evaluation. After further discussion with neurology and orthopedics, he was admitted for further evaluation versus being transferred. Patient has a history of pacemaker placementand is unable to undergo an MRI. He is currently scheduled for CT myelogram of the lumbosacral spine this morning. Patient denies any recent falls, accidents, or injuries. He states he has not had these symptoms previously. He states he has lost his bowel and bladder over the past couple weeks while at work and had to go home to change his clothes. He states this happens very quickly and he is unable to control his bowel or bladder. He feels significant weakness with his right lower extremity, specifically trying to lift up his right foot. He has significant medical history including pacemaker placement, coronary artery disease with stenting of the LAD and left circumflex, poorly controlled diabetes, diabetic neuropathy, hypertension, and heart failure. His last cardiac stent placement was approximately 2 weeks ago at [facility]. Patient did have a CT the lumbar spine performed on 2016 that showed L4-5 broad-based disc protrusion effacing the thecal sac and L5 -S1 broad-based posterior disc protrusion with a preserved spinal canal. He is currently nothing by mouth status. Past Medical History Past Medical History: Asthma, Coronary Artery Disease (CAD), Chest Pain / Angina , Heart Failure, CVA/TIA, Diabetes Mellitus, GERD/Reflux, Hyperlipidemia, Hypertension, Myocardial Infarction (MA), Osteoarthritis (OA), Pneumonia, Skin Disorder, Sleep Apnea/CPAP/BIPAP Additional Past Medical History / Comment(s): Pt recently admitted to [facility] on with nausea/vomiting, dehydration and hypotension. Other Hx: Coronary artery disease with multiple vessel disease, ischemic cardiomyopathy, diabetic neuropathy bilateral hands and feet, hypertensive cardiovascular disease, chronic gastritis, disc disease, chronic back pain, depression with hx of suicide attempts, GASTROPARESIS, PSORIASES,NIDDM type II, UTI, migraines, TIA, PUD, hiatal hernia, L rotator cuff tear, bronchitis, pseudoaneurysm L groin post procedure. Last Myocardial Infarction Date:: 06/03/16 per pt. History of Any Multi-Drug Resistant Organisms: MRSA Year Discovered:: 06/09/16 MDRO Source:: face Past Surgical History: AICD, Appendectomy, Cholecystectomy, Heart Catheterization With Stent, Hernia Repair Additional Past Surgical History / Comment(s): Pt has had multiple cardiac procedures-caths/PTCA/stenting with last stent place 2 weeks ago at [facility]-Jan. 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 Past Anesthesia/Blood Transfusion Reactions: No Reported Reaction Additional Past Anesthesia/Blood Transfusion Reaction / Comm: . Date of Last Stent Placement:: 06/03/16 Type of Cardiac Device: Biventricular Pacemaker, AICD Device Placement Date:: 09/19/15 Past Psychological History: Anxiety, Depression, PTSD Additional Psychological History / Comment(s): Several suicide attempts with use of insulin. PTSD- IN 2000- HIS 3 MONTH OLD SON IN HIS ARMS(CHILD WAS BORN 2 MONTHS PREMATURE). Pt states his depression is stable at this time and does not have any suicidal thoughts or plans. He is independent. PT ON DISABILTY MULTIFACTORIAL PER PT. He drives. Smoking Status: Never smoker Past Alcohol Use History: Occasional Additional Past Alcohol Use History / Comment(s): Past alcohol abuse- pt states he drinks occasionally now. Past Drug Use History: Marijuana Additional Drug Use History / Comment(s): NONE IN 15 YEARS (past alcoholic, but drinks occassionally per pt), has smoked marijuana last smoked in 1999 - Past Family History Mother Family Medical History: Coronary Artery Disease (CAD), Myocardial Infarction (MA ) Additional Family Medical History / Comment(s): 7 MA and faulty heart valve. Pt does not know the age when mother had her MIs. Father History Unknown: Yes Additional Family Medical History / Comment(s): Does not know who father is Brother(s) Family Medical History: Congestive Heart Failure (CHF), Myocardial Infarction ( MA) Additional Family Medical History / Comment(s): Parkinsons. Pt does not know at what age his brother had a MA Patient has Family Medical History: No Reported History Additional Family Medical History / Comment(s): There is a strong family history for heart disease, hypertension, and diabetes. Medications and Allergies Home Medications Medication Instructions Recorded Confirmed Type Nitroglycerin Sl Tabs [Nitrostat] 0.4 mg SUBLINGUAL Q5M PRN 10/13/13 03/01/17 History metFORMIN HCL 1,000 mg PO BID 07/03/15 03/01/17 History Omeprazole [PriLOSEC] 40 mg PO HS 08/13/15 03/01/17 History Dulaglutide [Trulicity] 1.5 mg SQ OROZCO 03/10/16 03/01/17 History Glimepiride 4 mg PO BID 03/10/16 03/01/17 History Rosuvastatin Calcium 40 mg PO HS 05/05/16 03/01/17 History Ranolazine [Ranexa] 1,000 mg PO BID 06/09/16 03/01/17 History Primidone [Mysoline] 100 mg PO HS 06/30/16 03/01/17 History Prasugrel [Effient] 10 mg PO DAILY tab 07/01/16 03/01/17 Rx Loperamide [Imodium] 2 mg PO TID 10/20/16 03/01/17 History Metoprolol Tartrate 50 mg PO BID 10/20/16 03/01/17 History Aspirin EC [Ecotrin Low Dose] 81 mg PO DAILY 11/07/16 03/01/17 History Cholecalciferol (Vitamin D3) 2,000 unit PO DAILY 11/07/16 03/01/17 History [Vitamin D3] Linagliptin [Tradjenta] 5 mg PO HS 12/19/16 03/01/17 History Sertraline HCl [Zoloft] 200 mg PO DAILY #28 01/27/17 03/01/17 Rx ARIPiprazole [ARIPiprazole Odt] 15 mg PO HS 02/14/17 03/01/17 History Albuterol Inhaler [Ventolin Hfa 2 puff INHALATION RT-QID PRN 02/14/17 03/01/17 History Inhaler] Lisinopril [Zestril] 5 mg PO DAILY #30 tab 02/17/17 03/01/17 Rx Gabapentin [Neurontin] 400 mg PO TID 02/24/17 03/01/17 History Isosorbide Mononitrate ER [Imdur] 30 mg PO DAILY #30 tab 02/26/17 03/01/17 Rx hydrALAZINE HCL [Apresoline] 25 mg PO BID #60 tab 02/26/17 03/01/17 Rx traMADol HCl [Ultram] 50 mg PO Q8H PRN #30 tab 02/26/17 03/01/17 Rx Allergies Allergy/AdvReac Type Severity Reaction Status Date / Time erythromycin base Allergy Severe Swelling Verified 03/01/17 19:56 [Erythromycin Base] codeine Allergy Unknown Swelling Verified 03/01/17 19:56 meclizine Allergy Unknown Unknown Verified 03/01/17 19:56 Penicillins Allergy Unknown Rash/Hives Verified 03/01/17 19:56 shellfish derived Allergy Unknown Anaphylaxis Verified 03/01/17 19:56 Fish Containing Products Allergy Anaphylaxis Verified 03/01/17 19:56 [Fish] Iodinated Contrast- Oral and Allergy Anaphylaxis Verified 03/01/17 19:56 IV Dye cephalexin monohydrate AdvReac Unknown Nausea & Verified 03/01/17 19:56 [From Keflex] Vomiting naproxen AdvReac Unknown Compromises Verified 03/01/17 19:56 Kidney Function atorvastatin calcium AdvReac Myalgia Verified 03/01/17 19:56 [From Lipitor] hydrocodone [From [place]] AdvReac Rapid Verified 03/01/17 19:56 Heart Rate Physical Examination Physical exam: Patient is awake, alert, and oriented 3 Vital signs stable Good chest excursion with deep inspiration and expiration Abdomen soft nontender Examination of lumbar spine reveals skin is intact with no abrasions, aspirations, or bruises; no erythema, purulence or signs of infection significant pain with palpation over the entire lumbosacral spine most significant along the midline Evidence of tattoos along the thoracic and lumbar spines Evidence of tattoos over the bilateral lower extremities Left lower extremity strength is 5/5 Significant weakness with the right lower extremity; patient has significant difficulty with lifting right lower extremity off the bed Dorsiflexion right lower extremity 2/5 Plantarflexion right lower extremity 3+/5 Extensor hallucis longus right lower extremity 5/5 Right patellar reflex 1/4; left patellar reflex 2/4 Dorsiflexion, plantarflexion, and extensor hallucis longus positive sustained on the left No lower extremity hyperreflexia bilaterally Positive Lasegue's test on the right Bilateral calves are soft; compression stockings intact Generalized pain with palpation of bilateral lower extremities No pain with internal and external rotation of the hips bilaterally Neurovascularly intact; Admits to diabetic neuropathy but has sensation over bilateral lower extremities Results CT of the lumbosacral spine taken on 06/09/2016: L4-5 broad-based disc protrusion effacing the thecal sac and L5-S1 broad-based posterior disc protrusion with a preserved spinal canal. - Labs Labs: Abnormal Lab Results - Last 24 Hours (Table) 03/01/17 03/01/17 03/01/17 Range/Units 22:20 22:20 22:20 Hgb 12.4 L (13.0-17.5) gm/dL Hct 38.8 L (39.0-53.0) % MCHC (31.0-37.0) g/dL Lymphocytes # (1.0-4.8) k/uL Sodium 135 L (137-145) mmol/L Potassium (3.5-5.1) mmol/L Carbon Dioxide (22-30) mmol/L Glucose 291 H (74-99) mg/dL Urine Protein 2+ H (Negative) Urine Glucose (UA) 4+ H (Negative) Urine Ketones Trace H (Negative) Urine Blood Trace H (Negative) Urine Mucus Rare H (None) /hpf 03/02/17 03/02/17 Range/Units 06:17 06:17 Hgb 12.7 L (13.0-17.5) gm/dL Hct (39.0-53.0) % MCHC 30.5 L (31.0-37.0) g/dL Lymphocytes # 0.5 L (1.0-4.8) k/uL Sodium 134 L (137-145) mmol/L Potassium 5.2 H (3.5-5.1) mmol/L Carbon Dioxide 20 L (22-30) mmol/L Glucose 491 H* (74-99) mg/dL Urine Protein (Negative) Urine Glucose (UA) (Negative) Urine Ketones (Negative) Urine Blood (Negative) Urine Mucus (None) /hpf H & H 03/01/17 03/02/17 Range/Units 22:20 06:17 Hgb 12.4 L 12.7 L (13.0-17.5) gm/dL Hct 38.8 L 41.8 (39.0-53.0) % Result Diagrams: 03/02/17 06:17 03/02/17 06:17 Assessment and Plan (1) Intractable low back pain Status: Acute (2) Right leg weakness Status: Acute (3) Bowel and bladder incontinence Status: Acute (4) Pacemaker Status: Acute (5) Radiculopathy of lumbar region Status: Acute (6) Congestive heart failure Status: Acute (7) Diabetes Status: Acute Plan: Assessment: Intractable low back pain Right lower extremity radiculopathy Bowel and bladder incontinence Coronary artery disease with stenting of the LAD and left circumflex, with last stent placed approximately 2 weeks ago History of biventricular pacemaker placement Diabetes with diabetic neuropathy Congestive heart failure Plan: 1. Patient is currently scheduled to undergo CT myelogram of the lumbosacral spine this morning. Following results of the imaging, we will review the imaging and determine an appropriate plan of care at that time. 2. Medicine has been consulted for critical labs in which his glucose is 491 this morning. Medicine will follow for treatment and evaluation of the patient' s significant medical diagnoses Time with Patient: Less than 30
[2017-03-02] MEDS ORDERED: RANOLAZINE 500 MG TAB.ER.12H PO SCH (09:00)
[2017-03-02] MEDS ORDERED: SERTRALINE 100 MG TAB PO SCH (09:00)
[2017-03-02] MEDS ORDERED: ISOSORBIDE MONONITRATE ER 30 MG TAB.ER.24H PO SCH (09:00)
[2017-03-02] MEDS ORDERED: hydrALAZINE HCL 25 MG TAB PO SCH (09:00)
[2017-03-02] MEDS ORDERED: LISINOPRIL 5 MG TAB PO SCH (09:00)
[2017-03-02] MEDS ORDERED: METOPROLOL TARTRATE 50 MG TAB PO SCH (09:00)
[2017-03-02] MEDS ORDERED: PRASUGREL 10 MG TAB PO SCH (09:00)
[2017-03-02 09:59] LABS: Glucose,Whole Blood 441 mg/dL (75-99)
--- NOTE | 2017-03-02 10:16 | CT ---
EXAMINATION TYPE: CT lumbar spine wo con DATE OF EXAM: 03/02/2017 COMPARISON: Prior CT lumbar spine 06/09/2016 HISTORY: Back pain CT DLP: 968 mGycm Automated exposure control for dose reduction was used. An unenhanced CT of the lumbar spine was performed. Bone and soft tissue window settings are submitt ed as well as coronal and sagittal reconstructions. FINDINGS: Lumbar vertebral bodies are intact. There is preserved height and alignment. Spinal curvature is agai n seen. L1-L2: Normal disc space height. No disc herniation protrusion or central stenosis. No facet joint arthropathy. No evidence for foraminal encroachment. L2-L3: Normal disc space height. No disc herniation protrusion or central stenosis. No facet joint arthropathy. No evidence for foraminal encroachment. L3-L4: Normal disc space height. No disc herniation protrusion or central stenosis. No facet joint arthropathy. No evidence for foraminal encroachment. L4-L5: Normal disc space height. Mild posterior broad-based disc bulge as on prior exam effaces the a nterior epidural space. No facet joint arthropathy. No evidence for foraminal encroachment. L5-S1: Normal disc space height. No disc herniation protrusion or central stenosis. No facet joint arthropathy. No evidence for foraminal encroachment. IMPRESSION: No paraspinal masses are identified. Lumbar segments are intact. Mild spinal curvature noted. Stable exam. Mild degenerative disc disease.
[2017-03-02] MEDS: GABAPENTIN 400 MG CAP PO SCH ×2 (11:15→15:04)
[2017-03-02 11:22] LABS: Hemoglobin A1C 9.1 % (4.2-6.1)
[2017-03-02] MEDS: LOPERAMIDE 2 MG CAP PO SCH ×2 (11:26→15:04)
[2017-03-02 11:48] LABS: Glucose,Whole Blood 335 mg/dL (75-99)
[2017-03-02 12:15] VITALS: BP 136/79; PULSE 107; TEMP 97
[2017-03-02] MEDS ORDERED: INSULIN LISPRO (humaLOG) 300 UNIT/3 ML VIAL SQ SCH (12:30)
[2017-03-02 12:43] LABS: Glucose,Whole Blood 292 mg/dL (75-99)
[2017-03-02 13:04] LABS: Glucose,Whole Blood 327 mg/dL (75-99)
[2017-03-02 13:48] LABS: Glucose,Whole Blood 341 mg/dL (75-99)
[2017-03-02 15:19] LABS: Glucose,Whole Blood 318 mg/dL (75-99)
[2017-03-02 15:19] LABS: Glucose,Whole Blood 240 mg/dL (75-99)
[2017-03-02 15:19] LABS: Glucose,Whole Blood 292 mg/dL (75-99)
[2017-03-02 15:29] VITALS: BMI 40.5
--- NOTE | 2017-03-02 15:38 | P.HPIM ---
History of Present Illness Patient came in and that was admitted with low back pain patient does have history of degenerative back disease because of which a orthopedic surgery was consulted patient had a nondisplaced fracture of the right ankle for which arthritic surgeries recommending a boat patient underwent CAT scan of the back which is showing L4-L5 L5-S1 bulging disc without any significant stenosis. Patient the back pain is well controlled at this point of time and patient denied any weakness and bilateral lower limbs loss of bowel or bladder continence patient although yesterday complained about tingling and numbness in bilateral lower limbs. Patient denied any fever, chills, nausea, vomiting. Patient does have extensive history with carotid disease uncontrolled blood sugars patient received the steroids in ER because of which his blood sugars are highly elevated that coming down now patient is cleared for discharge from multiple medical perspective. Patient pain is well-controlled. Patient denied any recent falls. For extensive and detailed history please refer to orthopedic consultation Review of Systems REVIEW OF SYSTEMS: CONSTITUTIONAL: No fever, no malaise, no fatigue. HEENT: No recent visual problems or hearing problems. Denied any sore throat. CARDIOVASCULAR: No chest pain, orthopnea, PND, no palpitations, no syncope. PULMONARY: No shortness of breath, no cough, no hemoptysis. GASTROINTESTINAL: No diarrhea, no nausea, no vomiting, no abdominal pain. Normoactive bowel sounds. NEUROLOGICAL: No headaches, no weakness, no numbness. HEMATOLOGICAL: Denies any bleeding or petechiae. GENITOURINARY: Denies any burning micturition, frequency, or urgency. MUSCULOSKELETAL/RHEUMATOLOGICAL: As mentioned in HPI ENDOCRINE: Denies any polyuria or polydipsia. The rest of the 14-point review of systems is negative. Past Medical History Past Medical History: Asthma, Coronary Artery Disease (CAD), Chest Pain / Angina , Heart Failure, CVA/TIA, Diabetes Mellitus, GERD/Reflux, Hyperlipidemia, Hypertension, Myocardial Infarction (GA), Osteoarthritis (OA), Pneumonia, Skin Disorder, Sleep Apnea/CPAP/BIPAP Additional Past Medical History / Comment(s): Pt recently admitted to [facility] on with nausea/vomiting, dehydration and hypotension. Other Hx: Coronary artery disease with multiple vessel disease, ischemic cardiomyopathy, diabetic neuropathy bilateral hands and feet, hypertensive cardiovascular disease, chronic gastritis, disc disease, chronic back pain, depression with hx of suicide attempts, GASTROPARESIS, PSORIASES,NIDDM type II, UTI, migraines, TIA, PUD, hiatal hernia, L rotator cuff tear, bronchitis, pseudoaneurysm L groin post procedure. Last Myocardial Infarction Date:: 06/03/16 per pt. History of Any Multi-Drug Resistant Organisms: MRSA Date of last positivie culture/infection: 06/09/16 MDRO Source:: face Past Surgical History: AICD, Appendectomy, Cholecystectomy, Heart Catheterization With Stent, Hernia Repair Additional Past Surgical History / Comment(s): Pt has had multiple cardiac procedures-caths/PTCA/stenting with last stent place 2 weeks ago at [facility]-2016, S[place]AN[place]H, R inguinal hernia repair and umbilical hernia repair, right orchiectomy due to necrosis, right hand surgery secondary to an injury, colonoscopy, cystoscopy-scraped bladder parrish. Past Anesthesia/Blood Transfusion Reactions: No Reported Reaction Additional Past Anesthesia/Blood Transfusion Reaction / Comment(s): . Date of Last Stent Placement:: 06/03/16 Type of Cardiac Device: Biventricular Pacemaker, AICD Device Placement Date:: 09/19/15 Past Psychological History: Anxiety, Depression, PTSD Additional Psychological History / Comment(s): Several suicide attempts with use of insulin. PTSD- IN 2000- HIS 3 MONTH OLD SON IN HIS ARMS(CHILD WAS BORN 2 MONTHS PREMATURE). Pt states his depression is stable at this time and does not have any suicidal thoughts or plans. He is independent. PT ON DISABILTY MULTIFACTORIAL PER PT. He drives. Smoking Status: Never smoker Past Alcohol Use History: Occasional Additional Past Alcohol Use History / Comment(s): Past alcohol abuse- pt states he drinks occasionally now. Past Drug Use History: Marijuana Additional Drug Use History / Comment(s): NONE IN 15 YEARS (past alcoholic, but drinks occassionally per pt), has smoked marijuana last smoked in 1999 - Past Family History Mother Family Medical History: Coronary Artery Disease (CAD), Myocardial Infarction (GA ) Additional Family Medical History / Comment(s): 7 GA and faulty heart valve. Pt does not know the age when mother had her MIs. Father History Unknown: Yes Additional Family Medical History / Comment(s): Does not know who father is Brother(s) Family Medical History: Congestive Heart Failure (CHF), Myocardial Infarction ( GA) Additional Family Medical History / Comment(s): Parkinsons. Pt does not know at what age his brother had a GA Patient has Family Medical History: No Reported History Additional Family Medical History / Comment(s): There is a strong family history for heart disease, hypertension, and diabetes. Medications and Allergies Home Medications Medication Instructions Recorded Confirmed Type Nitroglycerin Sl Tabs [Nitrostat] 0.4 mg SUBLINGUAL Q5M PRN 10/13/13 03/01/17 History metFORMIN HCL 1,000 mg PO BID 07/03/15 03/01/17 History Omeprazole [PriLOSEC] 40 mg PO HS 08/13/15 03/01/17 History Dulaglutide [Trulicity] 1.5 mg SQ OROZCO 03/10/16 03/01/17 History Glimepiride 4 mg PO BID 03/10/16 03/01/17 History Rosuvastatin Calcium 40 mg PO HS 05/05/16 03/01/17 History Ranolazine [Ranexa] 1,000 mg PO BID 06/09/16 03/01/17 History Primidone [Mysoline] 100 mg PO HS 06/30/16 03/01/17 History Prasugrel [Effient] 10 mg PO DAILY tab 07/01/16 03/01/17 Rx Loperamide [Imodium] 2 mg PO TID 10/20/16 03/01/17 History Metoprolol Tartrate 50 mg PO BID 10/20/16 03/01/17 History Aspirin EC [Ecotrin Low Dose] 81 mg PO DAILY 11/07/16 03/01/17 History Cholecalciferol (Vitamin D3) 2,000 unit PO DAILY 11/07/16 03/01/17 History [Vitamin D3] Linagliptin [Tradjenta] 5 mg PO HS 12/19/16 03/01/17 History Sertraline HCl [Zoloft] 200 mg PO DAILY #28 01/27/17 03/01/17 Rx ARIPiprazole [ARIPiprazole Odt] 15 mg PO HS 02/14/17 03/01/17 History Albuterol Inhaler [Ventolin Hfa 2 puff INHALATION RT-QID PRN 02/14/17 03/01/17 History Inhaler] Lisinopril [Zestril] 5 mg PO DAILY #30 tab 02/17/17 03/01/17 Rx Gabapentin [Neurontin] 400 mg PO TID 02/24/17 03/01/17 History Isosorbide Mononitrate ER [Imdur] 30 mg PO DAILY #30 tab 02/26/17 03/01/17 Rx hydrALAZINE HCL [Apresoline] 25 mg PO BID #60 tab 02/26/17 03/01/17 Rx traMADol HCl [Ultram] 50 mg PO Q8H PRN #30 tab 02/26/17 03/01/17 Rx Allergies Allergy/AdvReac Type Severity Reaction Status Date / Time erythromycin base Allergy Severe Swelling Verified 03/01/17 19:56 [Erythromycin Base] codeine Allergy Unknown Swelling Verified 03/01/17 19:56 meclizine Allergy Unknown Unknown Verified 03/01/17 19:56 Penicillins Allergy Unknown Rash/Hives Verified 03/01/17 19:56 shellfish derived Allergy Unknown Anaphylaxis Verified 03/01/17 19:56 Fish Containing Products Allergy Anaphylaxis Verified 03/01/17 19:56 [Fish] Iodinated Contrast- Oral and Allergy Anaphylaxis Verified 03/01/17 19:56 IV Dye cephalexin monohydrate AdvReac Unknown Nausea & Verified 03/01/17 19:56 [From Keflex] Vomiting naproxen AdvReac Unknown Compromises Verified 03/01/17 19:56 Kidney Function atorvastatin calcium AdvReac Myalgia Verified 03/01/17 19:56 [From Lipitor] hydrocodone [From Etoile] AdvReac Rapid Verified 03/01/17 19:56 Heart Rate Physical Exam Vitals: Vital Signs Temp Pulse Pulse Resp BP BP Pulse Ox 03/02/17 12:14 97.0 F L 107 H 18 136/79 94 L 03/02/17 08:00 97.1 F L 103 H 18 158/89 92 L 03/01/17 22:55 98.1 F 90 18 157/86 95 03/01/17 22:28 89 18 158/74 98 03/01/17 21:31 101 H 20 187/83 94 L 03/01/17 21:02 98 18 173/96 95 03/01/17 19:28 98.5 F 114 H 18 129/80 97 Intake and Output 03/02/17 03/02/17 03/02/17 06:59 14:59 22:59 Intake Total 75.406 6.3 Balance 75.406 6.3 Intake: Intake, IV Titration 75.406 6.3 Amount Insulin Regular 100 unit 75.406 6.3 In Sodium Chloride 0.9% 100 ml @ Titrate IV .Q0M [facility] Rx#:[id number] Other: Voiding Method Toilet Urinal # Voids 500 Weight 113.9 kg 113.9 kg Patient Weight 03/03/17 06:59 Weight 113.9 kg PHYSICAL EXAMINATION: GENERAL: The patient is alert and oriented x3, not in any acute distress. Well developed, well nourished. HEENT: Pupils are round and equally reacting to light. EOMI. No scleral icterus. No conjunctival pallor. Normocephalic, atraumatic. No pharyngeal erythema. No thyromegaly. CARDIOVASCULAR: S1 and S2 present. No murmurs, rubs, or gallops. PULMONARY: Chest is clear to auscultation, no wheezing or crackles. ABDOMEN: Soft, nontender, nondistended, normoactive bowel sounds. No palpable organomegaly. MUSCULOSKELETAL: No joint swelling or deformity. EXTREMITIES: No cyanosis, clubbing, or pedal edema. NEUROLOGICAL: Gross neurological examination did not reveal any focal deficits. SKIN: No rashes. Results CBC & Chem 7: 03/02/17 06:17 03/02/17 06:17 Labs: Abnormal Lab Results - Last 24 Hours (Table) 03/01/17 03/01/17 03/01/17 Range/Units 22:20 22:20 22:20 Hgb 12.4 L (13.0-17.5) gm/dL Hct 38.8 L (39.0-53.0) % MCHC (31.0-37.0) g/dL Lymphocytes # (1.0-4.8) k/uL Sodium 135 L (137-145) mmol/L Potassium (3.5-5.1) mmol/L Carbon Dioxide (22-30) mmol/L Glucose 291 H (74-99) mg/dL POC Glucose (mg/dL) (75-99) mg/dL Hemoglobin A1c (4.2-6.1) % Urine Protein 2+ H (Negative) Urine Glucose (UA) 4+ H (Negative) Urine Ketones Trace H (Negative) Urine Blood Trace H (Negative) Urine Mucus Rare H (None) /hpf 03/02/17 03/02/17 03/02/17 Range/Units 06:17 06:17 06:17 Hgb 12.7 L (13.0-17.5) gm/dL Hct (39.0-53.0) % MCHC 30.5 L (31.0-37.0) g/dL Lymphocytes # 0.5 L (1.0-4.8) k/uL Sodium 134 L (137-145) mmol/L Potassium 5.2 H (3.5-5.1) mmol/L Carbon Dioxide 20 L (22-30) mmol/L Glucose 491 H* (74-99) mg/dL POC Glucose (mg/dL) (75-99) mg/dL Hemoglobin A1c 9.1 H (4.2-6.1) % Urine Protein (Negative) Urine Glucose (UA) (Negative) Urine Ketones (Negative) Urine Blood (Negative) Urine Mucus (None) /hpf 03/02/17 03/02/17 03/02/17 Range/Units 09:55 11:37 12:21 Hgb (13.0-17.5) gm/dL Hct (39.0-53.0) % MCHC (31.0-37.0) g/dL Lymphocytes # (1.0-4.8) k/uL Sodium (137-145) mmol/L Potassium (3.5-5.1) mmol/L Carbon Dioxide (22-30) mmol/L Glucose (74-99) mg/dL POC Glucose (mg/dL) 441 H 335 H 292 H (75-99) mg/dL Hemoglobin A1c (4.2-6.1) % Urine Protein (Negative) Urine Glucose (UA) (Negative) Urine Ketones (Negative) Urine Blood (Negative) Urine Mucus (None) /hpf 03/02/17 03/02/17 03/02/17 Range/Units 13:01 13:32 14:06 Hgb (13.0-17.5) gm/dL Hct (39.0-53.0) % MCHC (31.0-37.0) g/dL Lymphocytes # (1.0-4.8) k/uL Sodium (137-145) mmol/L Potassium (3.5-5.1) mmol/L Carbon Dioxide (22-30) mmol/L Glucose (74-99) mg/dL POC Glucose (mg/dL) 327 H 341 H 318 H (75-99) mg/dL Hemoglobin A1c (4.2-6.1) % Urine Protein (Negative) Urine Glucose (UA) (Negative) Urine Ketones (Negative) Urine Blood (Negative) Urine Mucus (None) /hpf 03/02/17 03/02/17 Range/Units 14:33 14:59 Hgb (13.0-17.5) gm/dL Hct (39.0-53.0) % MCHC (31.0-37.0) g/dL Lymphocytes # (1.0-4.8) k/uL Sodium (137-145) mmol/L Potassium (3.5-5.1) mmol/L Carbon Dioxide (22-30) mmol/L Glucose (74-99) mg/dL POC Glucose (mg/dL) 292 H 240 H (75-99) mg/dL Hemoglobin A1c (4.2-6.1) % Urine Protein (Negative) Urine Glucose (UA) (Negative) Urine Ketones (Negative) Urine Blood (Negative) Urine Mucus (None) /hpf Thrombosis Risk Factor Assmnt - Choose All That Apply Any of the Below Risk Factors Present?: Yes Each Factor Represents 1 point: Acute GA, Age 41-60 years, Obesity (BMI >25) Other Risk Factors: No Other congenital or acquired thrombophilia - If yes, enter type in comment: No Thrombosis Risk Factor Assessment Total Risk Factor Score: 3 Thrombosis Risk Factor Assessment Level: Moderate Risk Assessment and Plan Plan: #1 low back pain: No red flag signs was a valid by arthritic surgery patient the will continue his pain medications at home no further recommendations at this point of time. #2 nondisplaced fracture of the right ankle for which patient will require a port. #3 type 2 diabetes mellitus with elevated blood sugars due to the systemic steroids he received in ER. #4 lumbar radiculopathy. #5 congestive heart failure chronic systolic dysfunction without any acute exacerbation, patient had severe ischemic area myopathy status post ACD. #6 coronary artery disease with multiple stents in the past area #7 hypertension #8 hyperlipidemia #9 morbid obesity #10 obstructive sleep apnea and uses CPAP machine at home #11 gastroesophageal reflux disease. For above-mentioned chronic medical problems continue his home medications other chronic medical problems are fairly stable at this time
--- NOTE | 2017-03-02 15:39 | P.DS ---
Providers Date of admission: 03/01/17 21:46 Attending physician: Safia Clay Consults: 03/02/17 15:05 Consult Physician Routine Consulting Provider: Mario Joyce Consult Reason/Comments: lower ext weakness Do you want consulting provider notified?: Already Contacted Primary care physician: [facility] Course: Please refer to my HPI Plan - Discharge Summary New Discharge Prescriptions: No Action Nitroglycerin Sl Tabs [Nitrostat] 0.4 mg SUBLINGUAL Q5M PRN PRN Reason: Chest Pain metFORMIN HCL 1,000 mg PO BID Omeprazole [PriLOSEC] 40 mg PO HS Glimepiride 4 mg PO BID Dulaglutide [Trulicity] 1.5 mg SQ OROZCO Rosuvastatin Calcium 40 mg PO HS Ranolazine [Ranexa] 1,000 mg PO BID Primidone [Mysoline] 100 mg PO HS Prasugrel [Effient] 10 mg PO DAILY tab Metoprolol Tartrate 50 mg PO BID Loperamide [Imodium] 2 mg PO TID Aspirin EC [Ecotrin Low Dose] 81 mg PO DAILY Cholecalciferol (Vitamin D3) [Vitamin D3] 2,000 unit PO DAILY Linagliptin [Tradjenta] 5 mg PO HS Sertraline HCl [Zoloft] 200 mg PO DAILY #28 ARIPiprazole [ARIPiprazole Odt] 15 mg PO HS Albuterol Inhaler [Ventolin Hfa Inhaler] 2 puff INHALATION RT-QID PRN PRN Reason: Shortness Of Breath Lisinopril [Zestril] 5 mg PO DAILY #30 tab Gabapentin [Neurontin] 400 mg PO TID hydrALAZINE HCL [Apresoline] 25 mg PO BID #60 tab Isosorbide Mononitrate ER [Imdur] 30 mg PO DAILY #30 tab traMADol HCl [Ultram] 50 mg PO Q8H PRN #30 tab PRN Reason: pain Discharge Medication List Nitroglycerin Sl Tabs [Nitrostat] 0.4 mg SUBLINGUAL Q5M PRN 10/13/13 [History] metFORMIN HCL 1,000 mg PO BID 07/03/15 [History] Omeprazole [PriLOSEC] 40 mg PO HS 08/13/15 [History] Dulaglutide [Trulicity] 1.5 mg SQ OROZCO 10/17/16 [History] Glimepiride 4 mg PO BID 03/10/16 [History] Rosuvastatin Calcium 40 mg PO HS 05/05/16 [History] Ranolazine [Ranexa] 1,000 mg PO BID 06/09/16 [History] Primidone [Mysoline] 100 mg PO HS 06/30/16 [History] Prasugrel [Effient] 10 mg PO DAILY tab 07/01/16 [Rx] Loperamide [Imodium] 2 mg PO TID 10/20/16 [History] Metoprolol Tartrate 50 mg PO BID 10/20/16 [History] Aspirin EC [Ecotrin Low Dose] 81 mg PO DAILY 11/07/16 [History] Cholecalciferol (Vitamin D3) [Vitamin D3] 2,000 unit PO DAILY 11/07/16 [History] Linagliptin [Tradjenta] 5 mg PO HS 12/19/16 [History] Sertraline HCl [Zoloft] 200 mg PO DAILY #28 01/27/17 [Rx] ARIPiprazole [ARIPiprazole Odt] 15 mg PO HS 02/14/17 [History] Albuterol Inhaler [Ventolin Hfa Inhaler] 2 puff INHALATION RT-QID PRN 02/14/17 [ History] Lisinopril [Zestril] 5 mg PO DAILY #30 tab 02/17/17 [Rx] Gabapentin [Neurontin] 400 mg PO TID 02/24/17 [History] Isosorbide Mononitrate ER [Imdur] 30 mg PO DAILY #30 tab 02/26/17 [Rx] hydrALAZINE HCL [Apresoline] 25 mg PO BID #60 tab 02/26/17 [Rx] traMADol HCl [Ultram] 50 mg PO Q8H PRN #30 tab 02/26/17 [Rx] Follow up Appointment(s)/Referral(s): Junie New MD [Primary Care Provider] - 03/09/17 4:00 pm Patient Instructions/Handouts: Type 2 Diabetes in Adults (DC), Back Pain (GEN) Activity/Diet/Wound Care/Special Instructions: Equalizer boot- Wear while ambulating. You do not have to sleep with boot on. Weight bear as tolerated with boot on. Discharge Disposition: HOME SELF-CARE
[2017-03-02] MEDS ORDERED: ROSUVASTATIN CALCIUM 40 MG PO SCH (21:00)
[2017-03-02] MEDS ORDERED: LINAGLIPTIN 5 MG TABLET PO SCH (21:00)
[2017-03-02] MEDS ORDERED: PRIMIDONE 50 MG TAB PO SCH (21:00)
[2017-03-02] MEDS ORDERED: ARIPiprazole 15 MG TAB PO SCH (21:00)
== END 2017-03-02 16:00 | disposition home or self-care (01) | DRG 552 ==
LOC: EC 19:20 → 3SUR 21:46 → 4MS4W 03-02 12:05
PROVIDERS: ADMIT Hospitalist; ATTEND Hospitalist
DX: M51.16 Intervertebral disc disorders with radiculopathy, lumbar region (principal); I50.22 Chronic systolic (congestive) heart failure; E11.42 Type 2 diabetes mellitus with diabetic polyneuropathy; K31.84 Gastroparesis; I11.0 Hypertensive heart disease with heart failure; E66.01 Morbid (severe) obesity due to excess calories; E11.43 Type 2 diabetes mellitus with diabetic autonomic (poly)neuropathy; E11.65 Type 2 diabetes mellitus with hyperglycemia; M51.17 Intervertebral disc disorders with radiculopathy, lumbosacral region; E78.5 Hyperlipidemia, unspecified; T38.0X5A Adverse effect of glucocorticoids and synthetic analogues, initial encounter; S82.64XA Nondisplaced fracture of lateral malleolus of right fibula, initial encounter for closed fracture; F32.9 Major depressive disorder, single episode, unspecified; F43.10 Post-traumatic stress disorder, unspecified; G47.33 Obstructive sleep apnea (adult) (pediatric); I25.10 Atherosclerotic heart disease of native coronary artery without angina pectoris; I25.5 Ischemic cardiomyopathy; J45.909 Unspecified asthma, uncomplicated; K21.9 Gastro-esophageal reflux disease without esophagitis; G43.909 Migraine, unspecified, not intractable, without status migrainosus; G89.29 Other chronic pain; K29.50 Unspecified chronic gastritis without bleeding; K44.9 Diaphragmatic hernia without obstruction or gangrene; L40.9 Psoriasis, unspecified; M19.90 Unspecified osteoarthritis, unspecified site; R32 Unspecified urinary incontinence; R15.9 Full incontinence of feces; F41.9 Anxiety disorder, unspecified; I25.2 Old myocardial infarction; Z79.84 Long term (current) use of oral hypoglycemic drugs; Z79.899 Other long term (current) drug therapy; Z79.01 Long term (current) use of anticoagulants; Z79.82 Long term (current) use of aspirin; Z95.5 Presence of coronary angioplasty implant and graft; Z95.810 Presence of automatic (implantable) cardiac defibrillator; Z88.5 Allergy status to narcotic agent; Z88.0 Allergy status to penicillin; Z88.8 Allergy status to other drugs, medicaments and biological substances; Z88.1 Allergy status to other antibiotic agents; Z91.041 Radiographic dye allergy status; Z85.6 Personal history of leukemia; Z86.14 Personal history of Methicillin resistant Staphylococcus aureus infection; Z82.49 Family history of ischemic heart disease and other diseases of the circulatory system; Y92.238 Other place in hospital as the place of occurrence of the external cause; Y92.9 Unspecified place or not applicable; X58.XXXA Exposure to other specified factors, initial encounter
CPT/HCPCS: 72131; 80048; 81001; 83036; 85025; 96374; 96375; 99284

== ENCOUNTER 2017-03-10 01:46 | Inpatient (IN) | payer MEDICARE, OTHER ==
[2017-03-10] MEDS ORDERED: ASPIRIN 81 MG PO STA (02:09)
[2017-03-10] MEDS ORDERED: NITROGLYCERIN OINT 1 INCH/GM PACKET TOPICAL STA (02:09)
[2017-03-10] MEDS ORDERED: NITROGLYCERIN SL TABS 0.4 MG TAB SUBLINGUAL STA (02:09)
--- NOTE | 2017-03-10 02:17 | ED ---
General Adult HPI - General Chief complaint: Chest Pain Stated complaint: chest pain Time Seen by Provider: 03/10/17 01:50 Source: family, RN notes reviewed Mode of arrival: ambulatory Limitations: no limitations - History of Present Illness Initial comments: This is a 41-year-old male who has a past medical history significant for multiple heart attacks and multiple stent placements. Patient states this morning he had chest pain but it resolved and then again about a half-hour prior to arrival he started having chest pain again which radiates to his back and down his left arm. Patient states the chest pain continues currently. Patient states he thought was heartburn. Patient states there is no diaphoresis thinners no nausea. Patient denies any recent fever chills or cough. Patient denies any palpitations. Patient denies abdominal pain patient denies any recent diarrhea. Patient denies lightheadedness dizziness or near syncopal episode. Patient denies any headache patient denies numbness weakness. - Related Data Home Medications Medication Instructions Recorded Confirmed Nitroglycerin Sl Tabs [Nitrostat] 0.4 mg SUBLINGUAL Q5M PRN 10/13/13 03/01/17 metFORMIN HCL 1,000 mg PO BID 07/03/15 03/01/17 Omeprazole [PriLOSEC] 40 mg PO HS 08/13/15 03/01/17 Dulaglutide [Trulicity] 1.5 mg SQ OROZCO 03/10/16 03/01/17 Glimepiride 4 mg PO BID 03/10/16 03/01/17 Rosuvastatin Calcium 40 mg PO HS 05/05/16 03/01/17 Ranolazine [Ranexa] 1,000 mg PO BID 06/09/16 03/01/17 Primidone [Mysoline] 100 mg PO HS 06/30/16 03/01/17 Loperamide [Imodium] 2 mg PO TID 10/20/16 03/01/17 Metoprolol Tartrate 50 mg PO BID 10/20/16 03/01/17 Aspirin EC [Ecotrin Low Dose] 81 mg PO DAILY 11/07/16 03/01/17 Cholecalciferol (Vitamin D3) 2,000 unit PO DAILY 11/07/16 03/01/17 [Vitamin D3] Linagliptin [Tradjenta] 5 mg PO HS 12/19/16 03/01/17 ARIPiprazole [ARIPiprazole Odt] 15 mg PO HS 02/14/17 03/01/17 Albuterol Inhaler [Ventolin Hfa 2 puff INHALATION RT-QID PRN 02/14/17 03/01/17 Inhaler] Gabapentin [Neurontin] 400 mg PO TID 02/24/17 03/01/17 Previous Rx's Medication Instructions Recorded Prasugrel [Effient] 10 mg PO DAILY tab 07/01/16 Sertraline HCl [Zoloft] 200 mg PO DAILY #28 01/27/17 Lisinopril [Zestril] 5 mg PO DAILY #30 tab 02/17/17 Isosorbide Mononitrate ER [Imdur] 30 mg PO DAILY #30 tab 02/26/17 hydrALAZINE HCL [Apresoline] 25 mg PO BID #60 tab 02/26/17 traMADol HCl [Ultram] 50 mg PO Q8H PRN #30 tab 02/26/17 Allergies Allergy/AdvReac Type Severity Reaction Status Date / Time erythromycin base Allergy Severe Swelling Verified 03/10/17 01:50 [Erythromycin Base] codeine Allergy Unknown Swelling Verified 03/10/17 01:50 meclizine Allergy Unknown Unknown Verified 03/10/17 01:50 Penicillins Allergy Unknown Rash/Hives Verified 03/10/17 01:50 shellfish derived Allergy Unknown Anaphylaxis Verified 03/10/17 01:50 Fish Containing Products Allergy Anaphylaxis Verified 03/10/17 01:50 [Fish] Iodinated Contrast- Oral and Allergy Anaphylaxis Verified 03/10/17 01:50 IV Dye cephalexin monohydrate AdvReac Unknown Nausea & Verified 03/10/17 01:50 [From Keflex] Vomiting naproxen AdvReac Unknown Compromises Verified 03/10/17 01:50 Kidney Function atorvastatin calcium AdvReac Myalgia Verified 03/10/17 01:50 [From Lipitor] hydrocodone [From [place]] AdvReac Rapid Verified 03/10/17 01:50 Heart Rate Review of Systems ROS Statement: Those systems with pertinent positive or pertinent negative responses have been documented in the HPI. ROS Other: All systems not noted in ROS Statement are negative. Past Medical History Past Medical History: Asthma, Coronary Artery Disease (CAD), Chest Pain / Angina , Heart Failure, CVA/TIA, Diabetes Mellitus, GERD/Reflux, Hyperlipidemia, Hypertension, Myocardial Infarction ([place]), Osteoarthritis (OA), Pneumonia, Skin Disorder, Sleep Apnea/CPAP/BIPAP Additional Past Medical History / Comment(s): Pt recently admitted to [facility] on with nausea/vomiting, dehydration and hypotension. Other Hx: Coronary artery disease with multiple vessel disease, ischemic cardiomyopathy, diabetic neuropathy bilateral hands and feet, hypertensive cardiovascular disease, chronic gastritis, disc disease, chronic back pain, depression with hx of suicide attempts, GASTROPARESIS, PSORIASES,NIDDM type II, UTI, migraines, TIA, PUD, hiatal hernia, L rotator cuff tear, bronchitis, pseudoaneurysm L groin post procedure. Last Myocardial Infarction Date:: 06/03/16 per pt. 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 Past Anesthesia/Blood Transfusion Reactions: No Reported Reaction Additional Past Anesthesia/Blood Transfusion Reaction / Comment(s): . Date of Last Stent Placement:: 06/03/16 Type of Cardiac Device: Biventricular Pacemaker, AICD Device Placement Date:: 09/19/15 Past Psychological History: Anxiety, Depression, PTSD Additional Psychological History / Comment(s): Several suicide attempts with use of insulin. PTSD- IN 2000- HIS 3 MONTH OLD SON IN HIS ARMS(CHILD WAS BORN 2 MONTHS PREMATURE). Pt states his depression is stable at this time and does not have any suicidal thoughts or plans. He is independent. PT ON DISABILTY MULTIFACTORIAL PER PT. He drives. Smoking Status: Never smoker Past Alcohol Use History: Occasional Additional Past Alcohol Use History / Comment(s): Past alcohol abuse- pt states he drinks occasionally now. Past Drug Use History: Marijuana Additional Drug Use History / Comment(s): NONE IN 15 YEARS (past alcoholic, but drinks occassionally per pt), has smoked marijuana last smoked in 1999 - Past Family History Mother Family Medical History: Coronary Artery Disease (CAD), Myocardial Infarction ([place] ) Additional Family Medical History / Comment(s): 7 [place] and faulty heart valve. Pt does not know the age when mother had her MIs. Father History Unknown: Yes Additional Family Medical History / Comment(s): Does not know who father is Brother(s) Family Medical History: Congestive Heart Failure (CHF), Myocardial Infarction ( [place]) Additional Family Medical History / Comment(s): Parkinsons. Pt does not know at what age his brother had a [place] Patient has Family Medical History: No Reported History Additional Family Medical History / Comment(s): There is a strong family history for heart disease, hypertension, and diabetes. General Exam - General Exam Comments Initial Comments: GENERAL: Patient is well-developed and well-nourished. Patient is nontoxic and well- hydrated and is in mild distress. ENT: Neck is soft and supple. No significant lymphadenopathy is noted. Oropharynx is clear. Moist mucous membranes. Neck has full range of motion without eliciting any pain. EYES: The sclera were anicteric and conjunctiva were pink and moist. Extraocular movements were intact and pupils were equal round and reactive to light. Eyelids were unremarkable. PULMONARY: Unlabored respirations. Good breath sounds bilaterally. No audible rales rhonchi or wheezing was noted. CARDIOVASCULAR: There is a regular rate and rhythm without any murmurs gallops or rubs. ABDOMEN: Soft and nontender with normal bowel sounds. No palpable organomegaly was noted. There is no palpable pulsatile mass. SKIN: Skin is clear with no lesions or rashes and otherwise unremarkable. NEUROLOGIC: Patient is alert and oriented x3. Cranial nerves II through XII are grossly intact. Motor and sensory are also intact. Normal speech, volume and content. Symmetrical smile. MUSCULOSKELETAL: Normal extremities with adequate strength and full range of motion. No lower extremity swelling or edema. No calf tenderness. LYMPHATICS: No significant lymphadenopathy is noted PSYCHIATRIC: Normal psychiatric evaluation. Normal interpersonal interactions appears functionally intact in deals appropriately with others. No signs of depression. No signs of anxiety. Limitations: no limitations Course Vital Signs 03/10/17 03/10/17 03/10/17 01:47 03:12 03:20 Temperature 98.0 F Pulse Rate 97 89 92 Pulse Rate [ Tobacco Sampler ] Respiratory 18 18 18 Rate Blood Pressure 141/90 156/78 142/64 O2 Sat by Pulse 98 93 L 95 Oximetry 03/10/17 03:23 Temperature Pulse Rate Pulse Rate [ 92 Tobacco Sampler ] Respiratory Rate Blood Pressure O2 Sat by Pulse Oximetry Medical Decision Making - Medical Decision Making EKG shows a paced rhythm at 95 bpm WI interval 152 QRS is 120 QT interval 384 QTC is 482. Patient's EKG shows some ST segment depression in leads II, III, and F aVF. Minimal elevation in aVL. Chest x-ray shows no acute abnormality. Patient has significant symptoms I started the patient on heparin. I spoke with Dr. Chiu headache admitted the patient I wrote admitting orders I consult cardiology and continue the heparin and aspirin and Nitropaste on the floor - Lab Data Result diagrams: 03/10/17 02:30 03/10/17 03:04 Lab Results 03/10/17 03/10/17 03/10/17 Range/Units 02:30 02:30 03:04 WBC 7.3 (3.8-10.6) k/uL RBC 4.50 (4.30-5.90) m/uL Hgb 12.3 L (13.0-17.5) gm/dL Hct 37.0 L (39.0-53.0) % MCV 82.3 D (80.0-100.0) fL MCH 27.4 (25.0-35.0) pg MCHC 33.3 (31.0-37.0) g/dL RDW 15.7 H (11.5-15.5) % Plt Count 217 (150-450) k/uL Neutrophils % 64 % Lymphocytes % 25 % Monocytes % 5 % Eosinophils % 4 % Basophils % 1 % Neutrophils # 4.7 (1.3-7.7) k/uL Lymphocytes # 1.8 (1.0-4.8) k/uL Monocytes # 0.4 (0-1.0) k/uL Eosinophils # 0.3 (0-0.7) k/uL Basophils # 0.0 (0-0.2) k/uL PT 10.4 (9.0-12.0) sec INR 1.0 (<1.2) APTT 19.4 L (22.0-30.0) sec Sodium (137-145) mmol/L Potassium (3.5-5.1) mmol/L Chloride (98-107) mmol/L Carbon Dioxide (22-30) mmol/L Anion Gap mmol/L BUN (9-20) mg/dL Creatinine (0.66-1.25) mg/dL Est GFR (MDRD) Af Amer (>60 ml/min/1.73 sqM) Est GFR (MDRD) Non-Af (>60 ml/min/1.73 sqM) Glucose (74-99) mg/dL Calcium (8.4-10.2) mg/dL Magnesium (1.6-2.3) mg/dL Total Bilirubin (0.2-1.3) mg/dL AST (17-59) U/L ALT (21-72) U/L Alkaline Phosphatase (38-126) U/L Total Creatine Kinase 70 (55-170) U/L CK-MB (CK-2) 1.7 (0.0-2.4) ng/mL CK-MB (CK-2) Rel Index 2.4 Troponin I 0.034 (0.000-0.034) ng/mL Total Protein (6.3-8.2) g/dL Albumin (3.5-5.0) g/dL 03/10/17 Range/Units 03:04 WBC (3.8-10.6) k/uL RBC (4.30-5.90) m/uL Hgb (13.0-17.5) gm/dL Hct (39.0-53.0) % MCV (80.0-100.0) fL MCH (25.0-35.0) pg MCHC (31.0-37.0) g/dL RDW (11.5-15.5) % Plt Count (150-450) k/uL Neutrophils % % Lymphocytes % % Monocytes % % Eosinophils % % Basophils % % Neutrophils # (1.3-7.7) k/uL Lymphocytes # (1.0-4.8) k/uL Monocytes # (0-1.0) k/uL Eosinophils # (0-0.7) k/uL Basophils # (0-0.2) k/uL PT (9.0-12.0) sec INR (<1.2) APTT (22.0-30.0) sec Sodium 131 L (137-145) mmol/L Potassium 4.9 (3.5-5.1) mmol/L Chloride 100 (98-107) mmol/L Carbon Dioxide 20 L (22-30) mmol/L Anion Gap 11 mmol/L BUN 35 H (9-20) mg/dL Creatinine 3.20 H (0.66-1.25) mg/dL Est GFR (MDRD) Af Amer 26 (>60 ml/min/1.73 sqM) Est GFR (MDRD) Non-Af 22 (>60 ml/min/1.73 sqM) Glucose 217 H (74-99) mg/dL Calcium 9.3 (8.4-10.2) mg/dL Magnesium 1.5 L (1.6-2.3) mg/dL Total Bilirubin 0.4 (0.2-1.3) mg/dL AST 18 (17-59) U/L ALT 29 (21-72) U/L Alkaline Phosphatase 107 (38-126) U/L Total Creatine Kinase (55-170) U/L CK-MB (CK-2) (0.0-2.4) ng/mL CK-MB (CK-2) Rel Index Troponin I (0.000-0.034) ng/mL Total Protein 5.7 L (6.3-8.2) g/dL Albumin 3.3 L (3.5-5.0) g/dL Critical Care Time Critical Care Time: Yes Total Critical Care Time: 35 Disposition Clinical Impression: Unstable angina Disposition: ADMITTED IP TO THIS HOSP Referrals: Junie New MD [Primary Care Provider] - 1-2 days Time of Disposition: 03:47
[2017-03-10 02:33] LABS: Basophils % (A) 1 %; CH 27.6; CHCM 33.6; Eosinophils # (A) 0.3 k/uL (0-0.7); Eosinophils % (A) 4 %; HDW 3.17; HGB 12.3 gm/dL (13.0-17.5); Luc # (Auto) 0.14; Luc % (Auto) 2; Lymphocytes # (A) 1.8 k/uL (1.0-4.8); Lymphocytes % (A) 25 %; MCH 27.4 pg (25.0-35.0); MCHC 33.3 g/dL (31.0-37.0); Mean Platelet Volume 7.7; Monocytes # (A) 0.4 k/uL (0-1.0); Monocytes % (A) 5 %; Neutrophils # (A) 4.7 k/uL (1.3-7.7); Neutrophils % (A) 64 %; RDW 15.7 % (11.5-15.5); WBC 7.3 k/uL (3.8-10.6); WBC (Perox) 7.45
[2017-03-10 02:37] LABS: MCV 82.3 fL (80.0-100.0)
--- NOTE | 2017-03-10 02:43 | XR ---
EXAMINATION TYPE: XR chest 2V DATE OF EXAM: 03/10/2017 COMPARISON: 02/24/2017 HISTORY: Chest pain TECHNIQUE: Frontal and lateral views of the chest are obtained. FINDINGS: There is no heart failure nor confluent pneumonic infiltrate. Heart is enlarged. There is a left axillary pacemaker with the lead tip in the right ventricle. There are chest leads. Costophren ic angles are clear. IMPRESSION: No active cardiopulmonary disease. No change compared to old exam. Borderline cardiomega ly.
[2017-03-10 02:49] LABS: Prothrombin Time 10.4 sec (9.0-12.0)
[2017-03-10 02:50] LABS: Partial Thromboplastin Time 19.4 sec (22.0-30.0)
[2017-03-10 03:18] LABS: Calcium 9.3 mg/dL (8.4-10.2); Magnesium 1.5 mg/dL (1.6-2.3); Potassium 4.9 mmol/L (3.5-5.1); Total Bilirubin 0.4 mg/dL (0.2-1.3); Total Protein 5.7 g/dL (6.3-8.2)
[2017-03-10 03:40] LABS: Creatine Kinase MB 1.7 ng/mL (0.0-2.4); Troponin I 0.034 ng/mL (0.000-0.034)
[2017-03-10] MEDS ORDERED: NITROGLYCERIN OINT 1 INCH/GM PACKET TOPICAL SCH (07:00)
[2017-03-10] MEDS ORDERED: ALBUTEROL NEBULIZED 2.5 MG/3 ML INHALATION PRN (08:21)
[2017-03-10] MEDS ORDERED: LISINOPRIL 5 MG TAB PO SCH (09:00)
[2017-03-10] MEDS ORDERED: ISOSORBIDE MONONITRATE ER 30 MG TAB.ER.24H PO SCH (09:00)
[2017-03-10 09:21] LABS: Glucose,Whole Blood 231 mg/dL (75-99)
--- NOTE | 2017-03-10 09:21 | P.CRDCN ---
History of Present Illness Consult date: 03/10/17 Requesting physician: Elvin Chiu Consult reason: chest pain Chief complaint: Chest pain History of present illness: This is a 41-year-old gentleman with known history of coronary artery disease and multiple stent placements, most recent stent was placed in December of this year at [facility], he underwent stenting of the left circumflex at that time, patient also had prior stenting of the LAD. History of severe ischemic cardiomyopathy with prior AICD, hypertension, diabetes, hyperlipidemia , sleep apnea, prior TIA, GERD. Patient follows with a civil project engineer in [place]. He presents to the hospital on this occasion with symptoms of burning sensation in his chest which she states feels like heartburn. He had his initial symptoms yesterday morning, he has no sublingual nitroglycerin so he took a baby aspirin. Later in the evening he again developed symptoms and again took aspirin this time with no relief, so for this reason he came to the emergency room for further evaluation. Patient also states for further past 2 or 3 days he's been having frequent diarrhea stools. EKG on admission here reveals a paced rhythm with minimal ST depression in the inferior leads. Chest x-ray does not reveal any active cardiopulmonary disease. Hemoglobin 12.3, platelet count 217, sodium 131, potassium 4.9, BUN 35, creatinine 3.2. mag level I.5, troponin 0.034. At the time of my examination this morning, patient denies any further chest discomfort. Patient does have a brace to his right lower extremity, he says that he fell approximately one month ago and was recently told to have an ankle fracture. Past Medical History Past Medical History: Asthma, Coronary Artery Disease (CAD), Chest Pain / Angina , Heart Failure, CVA/TIA, Diabetes Mellitus, GERD/Reflux, Hyperlipidemia, Hypertension, Myocardial Infarction ([place]), Osteoarthritis (OA), Pneumonia, Skin Disorder, Sleep Apnea/CPAP/BIPAP Additional Past Medical History / Comment(s): Coronary artery disease with multiple vessel disease, ischemic cardiomyopathy, diabetic neuropathy bilateral hands and feet, hypertensive cardiovascular disease, chronic gastritis, current R ankle fracture, disc disease, chronic back pain, depression with hx of suicide attempts, GASTROPARESIS, PSORIASES,NIDDM type II, UTI, migraines, TIA , PUD, hiatal hernia, L rotator cuff tear, bronchitis, pseudoaneurysm L groin post procedure. Last Myocardial Infarction Date:: 06/03/16 per pt. History of Any Multi-Drug Resistant Organisms: MRSA Date of last positivie culture/infection: 06/09/16 MDRO Source:: face Past Surgical History: AICD, Appendectomy, Cholecystectomy, Heart Catheterization With Stent, Hernia Repair Additional Past Surgical History / Comment(s): Pt has had multiple cardiac procedures-caths/PTCA/stenting with last stent place 2 weeks ago at [facility]-Sept. 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 Past Anesthesia/Blood Transfusion Reactions: No Reported Reaction Additional Past Anesthesia/Blood Transfusion Reaction / Comment(s): . Date of Last Stent Placement:: 12/23/16 Type of Cardiac Device: Biventricular Pacemaker, AICD Device Placement Date:: 09/19/15 Smoking Status: Never smoker - Past Family History Mother Family Medical History: Coronary Artery Disease (CAD), Myocardial Infarction ([place] ) Additional Family Medical History / Comment(s): 7 [place] and faulty heart valve. Pt does not know the age when mother had her MIs. Father History Unknown: Yes Additional Family Medical History / Comment(s): Does not know who father is Brother(s) Family Medical History: Congestive Heart Failure (CHF), Myocardial Infarction ( [place]) Additional Family Medical History / Comment(s): Parkinsons. Pt does not know at what age his brother had a [place] Patient has Family Medical History: No Reported History Additional Family Medical History / Comment(s): There is a strong family history for heart disease, hypertension, and diabetes. Medications and Allergies Home Medications Medication Instructions Recorded Confirmed Type Nitroglycerin Sl Tabs [Nitrostat] 0.4 mg SUBLINGUAL Q5M PRN 10/13/13 03/10/17 History metFORMIN HCL 1,000 mg PO BID 07/03/15 03/10/17 History Omeprazole [PriLOSEC] 40 mg PO HS 08/13/15 03/10/17 History Dulaglutide [Trulicity] 1.5 mg SQ OROZCO 03/10/16 03/10/17 History Glimepiride 4 mg PO BID 03/10/16 03/10/17 History Rosuvastatin Calcium 40 mg PO HS 05/05/16 03/10/17 History Ranolazine [Ranexa] 1,000 mg PO BID 06/09/16 03/10/17 History Primidone [Mysoline] 100 mg PO HS 06/30/16 03/10/17 History Prasugrel [Effient] 10 mg PO DAILY tab 07/01/16 03/10/17 Rx Loperamide [Imodium] 2 mg PO TID 10/20/16 03/10/17 History Metoprolol Tartrate 50 mg PO BID 10/20/16 03/10/17 History Aspirin EC [Ecotrin Low Dose] 81 mg PO DAILY 11/07/16 03/10/17 History Cholecalciferol (Vitamin D3) 2,000 unit PO DAILY 11/07/16 03/10/17 History [Vitamin D3] Linagliptin [Tradjenta] 5 mg PO HS 12/19/16 03/10/17 History Sertraline HCl [Zoloft] 200 mg PO DAILY #28 01/27/17 03/10/17 Rx ARIPiprazole [ARIPiprazole Odt] 15 mg PO HS 02/14/17 03/10/17 History Albuterol Inhaler [Ventolin Hfa 2 puff INHALATION RT-QID PRN 02/14/17 03/10/17 History Inhaler] Lisinopril [Zestril] 5 mg PO DAILY #30 tab 02/17/17 03/10/17 Rx Gabapentin [Neurontin] 400 mg PO TID 02/24/17 03/10/17 History Isosorbide Mononitrate ER [Imdur] 30 mg PO DAILY #30 tab 02/26/17 03/10/17 Rx hydrALAZINE HCL [Apresoline] 25 mg PO BID #60 tab 02/26/17 03/10/17 Rx traMADol HCl [Ultram] 50 mg PO Q8H PRN #30 tab 02/26/17 03/10/17 Rx Allergies Allergy/AdvReac Type Severity Reaction Status Date / Time erythromycin base Allergy Severe Swelling Verified 03/10/17 07:29 [Erythromycin Base] codeine Allergy Unknown Swelling Verified 03/10/17 07:29 meclizine Allergy Unknown Unknown Verified 03/10/17 07:29 Penicillins Allergy Unknown Rash/Hives Verified 03/10/17 07:29 shellfish derived Allergy Unknown Anaphylaxis Verified 03/10/17 07:29 Fish Containing Products Allergy Anaphylaxis Verified 03/10/17 07:29 [Fish] Iodinated Contrast- Oral and Allergy Anaphylaxis Verified 03/10/17 07:29 IV Dye cephalexin monohydrate AdvReac Unknown Nausea & Verified 03/10/17 07:29 [From Keflex] Vomiting naproxen AdvReac Unknown Compromises Verified 03/10/17 07:29 Kidney Function atorvastatin calcium AdvReac Myalgia Verified 03/10/17 07:29 [From Lipitor] hydrocodone [From [place]] AdvReac Rapid Verified 03/10/17 07:29 Heart Rate Physical Exam Vitals: Vital Signs Temp Pulse Pulse Resp BP Pulse Ox 03/10/17 07:38 97.0 F L 81 18 146/78 98 03/10/17 06:49 85 18 137/65 95 03/10/17 06:31 82 18 132/71 03/10/17 04:30 87 18 143/66 97 03/10/17 03:23 92 03/10/17 03:20 92 18 142/64 95 03/10/17 03:12 89 18 156/78 93 L 03/10/17 01:47 98.0 F 97 18 141/90 98 Intake and Output 03/09/17 03/10/17 03/10/17 22:59 06:59 14:59 Other: Weight 112.945 kg PHYSICAL EXAMINATION: HEENT: Head is atraumatic, normocephalic. Pupils equal, round. Neck is supple. There is no elevated jugular venous pressure. HEART EXAMINATION: [Heart S1, S2 normal. No murmur or gallop heard.] CHEST EXAMINATION:[ Lungs are clear to auscultation and precussion. No chest wall tenderness is noted on palpation or with deep breathing.] ABDOMEN: [ Soft, nontender. Bowel sounds are heard. No organomegaly noted]. EXTREMITIES:[ 2+ peripheral pulses with no evidence of peripheral edema and no calf tenderness noted]. NEUROLOGIC [patient is awake, alert and oriented -3.] . Results 03/10/17 02:30 03/10/17 03:04 Cardiac Enzymes 03/10/17 03/10/17 Range/Units 03:04 03:04 AST 18 (17-59) U/L CK-MB (CK-2) 1.7 (0.0-2.4) ng/mL Troponin I 0.034 (0.000-0.034) ng/mL Coagulation 03/10/17 Range/Units 02:30 PT 10.4 (9.0-12.0) sec APTT 19.4 L (22.0-30.0) sec CBC 03/10/17 Range/Units 02:30 WBC 7.3 (3.8-10.6) k/uL RBC 4.50 (4.30-5.90) m/uL Hgb 12.3 L (13.0-17.5) gm/dL Hct 37.0 L (39.0-53.0) % Plt Count 217 (150-450) k/uL Comprehensive Metabolic Panel 03/10/17 Range/Units 03:04 Sodium 131 L (137-145) mmol/L Potassium 4.9 (3.5-5.1) mmol/L Chloride 100 (98-107) mmol/L Carbon Dioxide 20 L (22-30) mmol/L BUN 35 H (9-20) mg/dL Creatinine 3.20 H (0.66-1.25) mg/dL Glucose 217 H (74-99) mg/dL Calcium 9.3 (8.4-10.2) mg/dL AST 18 (17-59) U/L ALT 29 (21-72) U/L Alkaline Phosphatase 107 (38-126) U/L Total Protein 5.7 L (6.3-8.2) g/dL Albumin 3.3 L (3.5-5.0) g/dL Current Medications Generic Name Dose Route Start Last Admin Trade Name Freq PRN Reason Stop Dose Admin Albuterol Sulfate 2.5 mg 03/10/17 08:21 Ventolin Nebulized INHALATION RT-TID PRN Shortness Of Breath Or Wheezing Aspirin 81 mg 03/10/17 09:00 Aspirin PO DAILY [facility] Cholecalciferol 2,000 unit 03/10/17 09:00 Vitamin D3 PO DAILY JAKE Gabapentin 400 mg 03/10/17 09:00 Neurontin PO TID JAKE Glimepiride 4 mg 03/10/17 09:00 Amaryl PO AC-BID JAKE Hydralazine HCl 25 mg 03/10/17 09:00 Apresoline PO BID JAKE Isosorbide Mononitrate 30 mg 03/10/17 09:00 Imdur PO DAILY JAKE Linagliptin 5 mg 03/10/17 21:00 Tradjenta PO HS JAKE Lisinopril 5 mg 03/10/17 09:00 Zestril PO DAILY JAKE Loperamide HCl 2 mg 03/10/17 09:00 Imodium PO TID JAKE Metformin HCl 1,000 mg 03/10/17 09:00 Glucophage PO AC-BID [facility] Metoprolol Tartrate 50 mg 03/10/17 09:00 Lopressor PO BID [facility] Nitroglycerin 0.4 mg 03/10/17 03:48 Nitrostat SUBLINGUAL Q5M PRN Chest Pain Non-Formulary Medication 1.5 mg 03/15/17 08:13 Dulaglutide [Trulicity] SQ OROZCO JAKE Non-Formulary Medication 40 mg 03/10/17 21:00 Rosuvastatin Calcium [Rosuvastatin Calcium] PO HS JAKE Pantoprazole Sodium 40 mg 03/10/17 21:00 Protonix PO HS JAKE Prasugrel 10 mg 03/10/17 09:00 Effient PO DAILY [facility] Primidone 100 mg 03/10/17 21:00 Mysoline PO HS JAKE Ranolazine 1,000 mg 03/10/17 09:00 Ranexa PO BID JAKE Sertraline HCl 200 mg 03/10/17 09:00 Zoloft PO DAILY JAKE Tramadol HCl 50 mg 03/10/17 08:13 Ultram PO Q8H PRN pain Intake and Output 03/09/17 03/10/17 03/10/17 22:59 06:59 14:59 Other: Weight 112.945 kg 03/10/17 02:30 03/10/17 03:04 EKG Interpretations (text) EKG shows a paced rhythm with mild ST depression in the inferior leads. Assessment and Plan Plan: Assessment and plan #1 symptoms of chest discomfort which the patient describes as heartburn sensation, his usual angina is more in the form of chest pressure. May suggest acute coronary syndrome. . Initial troponin 0.034. EKG shows a paced rhythm with inferior ST depression. #2 known history of coronary artery disease with prior multiple stent placements , most recently patient underwent a stenting of the circumflex in [place] in December of this year, on Effient and aspirin. #3 acute renal failure, creatinine 3.2. Patient states he's been having frequent diarrhea stools for the past 2-3 days #4 ischemic cardio myopathy with prior AICD implant #5 hypomagnesemia #6 hypertension #7 hyperlipidemia #8 prior TIA #9 GERD #10 sleep apnea #11 recent right ankle fracture Plan We will repeat an echocardiogram with Doppler study. We will also give the patient IV fluids at 75 mL per hour. Check 2 more sets of troponins. Continue aspirin and Effient. Hold his ROWAN inhibitor at this time. We'll also increase his Imdur to 60 mg daily. Repeat EKG. Treat medically for now. Further recommendations to follow. DNP note has been reviewed, I agree with a documented findings and plan of care. Patient was seen and examined.
[2017-03-10 09:59] LABS: Creatine Kinase MB 1.9 ng/mL (0.0-2.4)
[2017-03-10] MEDS: GLIMEPIRIDE 4 MG TAB PO SCH ×2 (10:07→17:32)
[2017-03-10] MEDS: RANOLAZINE 500 MG TAB.ER.12H PO SCH ×2 (10:08→21:44)
[2017-03-10] MEDS: GABAPENTIN 400 MG CAP PO SCH ×3 (10:08→21:44)
[2017-03-10] MEDS: LOPERAMIDE 2 MG CAP PO SCH ×3 (10:09→21:45)
[2017-03-10] MEDS: hydrALAZINE HCL 25 MG TAB PO SCH ×2 (10:09→21:42)
[2017-03-10 10:10] LABS: Troponin I 0.103 ng/mL (0.000-0.034)
[2017-03-10] MEDS: METOPROLOL TARTRATE 50 MG TAB PO SCH ×2 (10:10→21:43)
[2017-03-10] MEDS: ASPIRIN 81 MG PO SCH (10:10)
[2017-03-10] MEDS: CHOLECALCIFEROL 1,000 UNIT TAB PO SCH (10:11)
[2017-03-10] MEDS: metFORMIN 500 MG TAB PO SCH (10:11)
[2017-03-10] MEDS: PRASUGREL 10 MG TAB PO SCH (10:12)
[2017-03-10] MEDS: SERTRALINE 100 MG TAB PO SCH (10:12)
[2017-03-10] MEDS: SODIUM CHLORIDE 0.9% 1,000 ML IV SCH (10:13)
[2017-03-10 12:01] LABS: Glucose,Whole Blood 267 mg/dL (75-99)
--- NOTE | 2017-03-10 12:36 | ECHOF ---
Referral Reason:chest pain MEASUREMENTS -------- HEIGHT: 167.6 cm WEIGHT: 112.9 kg BP: 146/78 RVIDd: 2.7 cm (< 3.3) IVSd: 1.5 cm (0.6 - 1.1) LVIDd: 5.1 cm (3.9 - 5.3) LVPWd: 1.4 cm (0.6 - 1.1) IVSs: 1.6 cm LVIDs: 4.1 cm LVPWs: 1.7 cm LA Diam: 4.3 cm (2.7 - 3.8) LAESV Index (A-L): 23.51 ml/m Ao Diam: 3.3 cm (2.0 - 3.7) AV Cusp: 2.0 cm (1.5 - 2.6) MV EXCURSION: 19.089 mm (> 18.000) MV EF SLOPE: 102 mm/s (70 - 150) EPSS: 1.4 cm MV E Benjy: 0.98 m/s MV DecT: 168 ms MV A Benjy: 0.86 m/s MV E/A Ratio: 1.14 RAP: 5.00 mmHg RVSP: 37.98 mmHg FINDINGS -------- Sinus rhythm. This was a technically difficult study with suboptimal views. The left ventricular size is normal. There is moderate concentric left ventricular hypertrophy. Overall left ventricular systolic function is mild-moderately impaired with, an EF between 40 - 45 %. The right ventricle is normal in size. Normal LA size by volume 22+/-6 ml/m2. The right atrium is normal in size. 1.5mg of Definity was utilized for enhancement of images The aortic valve is trileaflet and appears structurally normal. Mild mitral annular calcification present. Mild mitral regurgitation is present. Mild tricuspid regurgitation present. There is mild pulmonary hypertension. The right ventricular systolic pressure, as measured by Doppler, is 37.98mmHg. The pulmonic valve was not well visualized. The aortic root size is normal. Normal inferior vena cava with normal inspiratory collapse consistent with estimated right atrial pressure of 5 mmHg. There is no pericardial effusion. CONCLUSIONS -------- 1. Sinus rhythm. 2. The aortic valve is trileaflet and appears structurally normal. 3. Mild mitral annular calcification present. 4. Mild mitral regurgitation is present. 5. Mild tricuspid regurgitation present. 6. There is mild pulmonary hypertension. 7. The right ventricular systolic pressure, as measured by Doppler, is 37.98mmHg. 8. The pulmonic valve was not well visualized. 9. The aortic root size is normal. 10. Normal inferior vena cava with normal inspiratory collapse consistent with estimated right atrial pressure of 5 mmHg. 11. There is no pericardial effusion. 12. This was a technically difficult study with suboptimal views. 13. The left ventricular size is normal. 14. There is moderate concentric left ventricular hypertrophy. 15. Overall left ventricular systolic function is mild-moderately impaired with, an EF between 40 - 45 %. 16. The right ventricle is normal in size. 17. Normal LA size by volume 22+/-6 ml/m2. 18. The right atrium is normal in size. 19. 1.5mg of Definity was utilized for enhancement of images ENVIRONMENTAL MARKETER: Alicia Bethea RDCS
[2017-03-10] MEDS: traMADol 50 MG TAB PO PRN (13:46)
[2017-03-10] MEDS: MAGNESIUM SULFATE-D5W PMX 1 GM in DEXTROSE/WATER 1 100ML.BAG IVPB SCH ×2 (14:20→15:54)
[2017-03-10 16:31] LABS: Glucose,Whole Blood 244 mg/dL (75-99)
[2017-03-10 16:33] LABS: Troponin I 0.084 ng/mL (0.000-0.034)
[2017-03-10] MEDS: INSULIN LISPRO (humaLOG) 300 UNIT/3 ML VIAL SQ SCH (17:32)
--- NOTE | 2017-03-10 19:42 | HP ---
HISTORY AND PHYSICAL DATE OF ADMISSION: 03/10/17 PRESENTING COMPLAINT: Chest pain. HISTORY OF PRESENTING COMPLAINT: This is a 41-year-old patient of Dr. Junie New. Rather extensive medical history. The patient around 9 o'clock developed pressure in the chest that kind of waxed and waned and then around 11:30 at night the pressure became more severe. It became burning in nature and started radiating to her neck and arms there was no shortness of breath. No dizziness. No perspiration. Hence patient decided to present here. The patient has rather extensive medical history. Patient's other chronic stable medical conditions include congestive heart failure, diabetes, GERD, hypertension, hiatal hernia, AICD. The patient has an extensive coronary artery disease history. REVIEW OF SYSTEMS: CONSTITUTIONAL: Tired. HEENT: None. RESPIRATORY: As above. CARDIOVASCULAR: As above. GASTROINTESTINAL: None. GENITOURINARY: None. MUSCULOSKELETAL: Chronic low back pain. DERMATOLOGICAL, HEMATOLOGIC, LYMPHATIC: None. PSYCHIATRY: Anxiety and depression controlled. NEUROLOGICAL: None. PAST HISTORY: Coronary artery disease, stroke, diabetes mellitus type 2, GERD, hyperlipidemia, hypertension, osteoarthritis, sleep apnea, ischemic cardiomyopathy, EF 40%, peripheral neuropathy, depressions, gastroparesis, posttraumatic stress disorder. PAST SURGICAL HISTORY: Appendectomy, cholecystectomy, cardiac cath with stent, right orchiectomy. SOCIAL HISTORY: , no smoking. Alcohol in the past. FAMILY HISTORY: Coronary artery disease. HOME MEDICATIONS: 1. Ultram 50 mg q.8h p.r.n. 2. Metformin 1000 mg p.o. b.i.d. 3. Hydralazine 25 mg p.o. b.i.d. 4. Zoloft 200 mg p.o. daily. 5. Rosuvastatin 40 mg p.o. q.h.s. 6. Ranexa 1000 mg p.o. b.i.d. 7. Mysoline 100 mg p.o. q.h.s. 8. Effient 10 mg p.o. daily. 9. Prilosec 40 mg p.o. q.h.s. 10.Nitrostat 0.4 sublingual q.5 p.r.n. 11.Metoprolol 50 mg p.o. b.i.d. 12.Imodium 2 mg p.o. t.i.d. 13.Zestril 5 mg p.o. daily. 14.Tradjenta 5 mg p.o. q.h.s. 15.Imdur ER 30 mg p.o. daily. 16.Glimepiride 4 mg p.o. b.i.d. 17.Neurontin 400 mg p.o. t.i.d. 18.Trulicity 1.5 mg subcu on Thursday. 19.Vitamin D3 2000 units p.o. daily. 20.Aspirin 81 mg p.o. daily. 21.Ventolin HFA 2 puffs q.i.d. p.r.n. 22.Omeprazole 50 mg p.o. q.h.s. ALLERGIES: LIST INCLUDES AZITHROMYCIN, CODEINE, MECLIZINE, PENICILLIN, SHELLFISH, IV CONTRAST DYE, KEFLEX, NAPROXEN, LIPITOR AND HYDROCODONE. PHYSICAL EXAMINATION: Temperature 98, pulse 97, respiratory 18, blood pressure 140/98, pulse ox 98% on room air on presentation. GENERAL APPEARANCE: Well built, BMI 40.2, lying in bed, not in distress but anxious appearing. EYES: Pupils equal. Conjunctivae are normal. HEENT: Oral cavity normal. NECK: JVD not raised. Mass not palpable. RESPIRATORY: Effort normal. Lungs are clear. CARDIOVASCULAR: First and second sounds normal. No edema. ABDOMEN: Soft, nontender. Liver and spleen not palpable. LYMPHATIC: No lymph node palpable in the neck or axillae. PSYCHIATRY: Alert and oriented x3. Mood and affect normal. NEUROLOGICAL: Pupils equal. cranial nerves grossly intact. Power and sensation grossly intact. INVESTIGATIONS: White count 7.3, hemoglobin 12.3, potassium 4.9, BUN 35, creatinine 3.20. The patient's creatinine was 0.96 on 03/02/17. ASSESSMENT: 1. Acute coronary syndrome in a patient with known coronary artery disease. 2. Chronic congestive heart failure from systolic dysfunction, EF 40-45% from underlying coronary artery disease. 3. Coronary artery disease with prior history of stent. 4. Diabetes mellitus type 2, chronically on insulin. 5. Gastroesophageal reflux disease. 6. Hyperlipidemia. 7. Essential hypertension. 8. Obstructive sleep apnea. 9. Diabetes mellitus type 2 causing peripheral neuropathy. 10.Chronic gastritis. 11.Depression not otherwise specified. 12.Primary osteoarthritis multiple joints, bilateral. 13.Obesity, morbid, BMI greater than 40. 14.Acute renal failure probably acute tubular necrosis. PLAN: Cardiology was consulted. Will order renal ultrasound. Also order UA. In the mean time, will hold off patient's ROWAN inhibitor and Glucophage. BEATRIZ / IJN: [id number] /
[2017-03-10 20:48] LABS: Hemoglobin A1C 9.7 % (4.2-6.1)
[2017-03-10 21:10] LABS: Glucose,Whole Blood 168 mg/dL (75-99)
[2017-03-10] MEDS: LINAGLIPTIN 5 MG TABLET PO SCH (21:43)
[2017-03-10] MEDS: PANTOPRAZOLE 40 MG TABLET PO SCH (21:44)
[2017-03-10] MEDS: PRIMIDONE 50 MG TAB PO SCH (21:44)
[2017-03-11 02:47] LABS: Appearance,Urine Clear (Clear); Bilirubin,Urine Negative (Negative); Glucose,Urine (UA) Negative (Negative); Ketones,Urine Negative (Negative); Leukocyte Esterase,Urine Negative (Negative); Nitrite,Urine Negative (Negative); Protein,Urine Trace (Negative); UA Billing (MACRO vs. MICRO) CHEM; Urobilinogen,Urine <2.0 mg/dL (<2.0)
[2017-03-11] MEDS: SODIUM CHLORIDE 0.9% 1,000 ML IV SCH ×2 (06:15→11:45)
[2017-03-11 06:17] LABS: Glucose,Whole Blood 169 mg/dL (75-99)
[2017-03-11] MEDS: GLIMEPIRIDE 4 MG TAB PO SCH ×2 (06:36→17:40)
[2017-03-11] MEDS: INSULIN LISPRO (humaLOG) 300 UNIT/3 ML VIAL SQ SCH ×3 (06:37→17:41)
[2017-03-11 06:40] LABS: Anion Gap 9 mmol/L; Blood Urea Nitrogen 31 mg/dL (9-20); Calcium 8.9 mg/dL (8.4-10.2); Carbon Dioxide 22 mmol/L (22-30); Chloride 104 mmol/L (98-107); Cholesterol 122 mg/dL (<200); Glucose 180 mg/dL (74-99); HDL Cholesterol 40 mg/dL (40-60); Non-African American GFR(MDRD) 52 (>60 ml/min/1.73 sqM); Potassium 5.6 mmol/L (3.5-5.1); Sodium 135 mmol/L (137-145)
[2017-03-11] MEDS ORDERED: ASPIRIN 325 MG TAB PO SCH (09:00)
[2017-03-11] MEDS ORDERED: Magnesium Replacement Protocol 1 EACH MISC MISCELLANE PRN (09:58)
[2017-03-11] MEDS: traMADol 50 MG TAB PO PRN (10:09)
[2017-03-11] MEDS: CHOLECALCIFEROL 1,000 UNIT TAB PO SCH (10:10)
[2017-03-11] MEDS: hydrALAZINE HCL 25 MG TAB PO SCH ×2 (10:10→19:56)
[2017-03-11] MEDS ORDERED: INSULIN REGULAR 100 UNIT/ML VIAL IV ONE ×2 (10:10→20:31)
[2017-03-11] MEDS: GABAPENTIN 400 MG CAP PO SCH ×3 (10:10→22:16)
[2017-03-11] MEDS: ASPIRIN 81 MG PO SCH (10:10)
[2017-03-11] MEDS: METOPROLOL TARTRATE 50 MG TAB PO SCH ×2 (10:11→19:57)
[2017-03-11] MEDS: ISOSORBIDE MONONITRATE ER 60 MG TAB.ER.24H PO SCH (10:11)
[2017-03-11] MEDS: LOPERAMIDE 2 MG CAP PO SCH ×3 (10:11→22:16)
[2017-03-11] MEDS: PRASUGREL 10 MG TAB PO SCH (10:11)
[2017-03-11] MEDS: SERTRALINE 100 MG TAB PO SCH (10:11)
[2017-03-11] MEDS: RANOLAZINE 500 MG TAB.ER.12H PO SCH ×2 (10:11→19:57)
--- NOTE | 2017-03-11 10:12 | P.NPCON ---
History of Present Illness - Reason for Consult acute renal failure - History of Present Illness Reason for consultation: Acute kidney injury History of present illness: Patient is a 41-year-old male seen in renal consultation for acute kidney injury. His basic creatinine is 1 and was elevated at 3.21 admission. He was started on IV fluids with normal saline at 75 mL an hour and diuretics are held. Creatinine is down to 1.5 today. His urinalysis is quite benign. Patient does a significant history of coronary artery disease with multiple interventions in the past. He presented to the hospital with chest pain that he developed yesterday. He describes the pain as burning sensation as well as pressure-like. Patient states the chest pain resolved on its own spontaneously. He denies use of NSAIDs. Denies any family history of renal disease. He does have systolic CHF with ejection fraction of 40-45%. He's been having some loose bowel movements. He had 2 episodes this morning. Oral intake has been fair and is gradually improving. Hemodynamically he stable. Denies nausea or vomiting. No fever or chills. No dizziness or lightheadedness. Vital signs are stable. General: The patient appeared well nourished and normally developed. HEENT: Head exam is unremarkable. Neck is without jugular venous distension. LUNGS: Lungs are clear to auscultation and percussion. Breath sounds decreased. HEART: Rate and Rhythm are regular. First and second heart sounds normal. No murmurs, rubs or gallops. ABDOMEN: Abdominal exam reveals normal bowel sounds. Non-tender and non- distended. No evidence of peritonitis. EXTREMITITES: No clubbing, cyanosis, or edema. Past Medical History Past Medical History: Asthma, Coronary Artery Disease (CAD), Chest Pain / Angina , Heart Failure, CVA/TIA, Diabetes Mellitus, GERD/Reflux, Hyperlipidemia, Hypertension, Myocardial Infarction (NC), Osteoarthritis (OA), Pneumonia, Skin Disorder, Sleep Apnea/CPAP/BIPAP Additional Past Medical History / Comment(s): Coronary artery disease with multiple vessel disease, ischemic cardiomyopathy, diabetic neuropathy bilateral hands and feet, hypertensive cardiovascular disease, chronic gastritis, current R ankle fracture, disc disease, chronic back pain, depression with hx of suicide attempts, GASTROPARESIS, PSORIASES,NIDDM type II, UTI, migraines, TIA , PUD, hiatal hernia, L rotator cuff tear, bronchitis, pseudoaneurysm L groin post procedure. Last Myocardial Infarction Date:: 06/03/16 per pt. History of Any Multi-Drug Resistant Organisms: MRSA Date of last positivie culture/infection: 06/09/16 MDRO Source:: face Past Surgical History: AICD, Appendectomy, Cholecystectomy, Heart Catheterization With Stent, Hernia Repair Additional Past Surgical History / Comment(s): Pt has had multiple cardiac procedures-caths/PTCA/stenting with last stent place 2 weeks ago at [facility]-Jan. 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 Past Anesthesia/Blood Transfusion Reactions: No Reported Reaction Additional Past Anesthesia/Blood Transfusion Reaction / Comment(s): . Date of Last Stent Placement:: 12/23/16 Type of Cardiac Device: Biventricular Pacemaker, AICD Device Placement Date:: 09/19/15 Smoking Status: Never smoker - Past Family History Mother Family Medical History: Coronary Artery Disease (CAD), Myocardial Infarction (NC ) Additional Family Medical History / Comment(s): 7 NC and faulty heart valve. Pt does not know the age when mother had her MIs. Father History Unknown: Yes Additional Family Medical History / Comment(s): Does not know who father is Brother(s) Family Medical History: Congestive Heart Failure (CHF), Myocardial Infarction ( NC) Additional Family Medical History / Comment(s): Parkinsons. Pt does not know at what age his brother had a NC Patient has Family Medical History: No Reported History Additional Family Medical History / Comment(s): There is a strong family history for heart disease, hypertension, and diabetes. Medications and Allergies Home Medications Medication Instructions Recorded Confirmed Type Nitroglycerin Sl Tabs [Nitrostat] 0.4 mg SUBLINGUAL Q5M PRN 10/13/13 03/10/17 History metFORMIN HCL 1,000 mg PO BID 07/03/15 03/10/17 History Omeprazole [PriLOSEC] 40 mg PO HS 08/13/15 03/10/17 History Dulaglutide [Trulicity] 1.5 mg SQ ORZOCO 03/10/16 03/10/17 History Glimepiride 4 mg PO BID 03/10/16 03/10/17 History Rosuvastatin Calcium 40 mg PO HS 05/05/16 03/10/17 History Ranolazine [Ranexa] 1,000 mg PO BID 06/09/16 03/10/17 History Primidone [Mysoline] 100 mg PO HS 06/30/16 03/10/17 History Prasugrel [Effient] 10 mg PO DAILY tab 07/01/16 03/10/17 Rx Loperamide [Imodium] 2 mg PO TID 10/20/16 03/10/17 History Metoprolol Tartrate 50 mg PO BID 10/20/16 03/10/17 History Aspirin EC [Ecotrin Low Dose] 81 mg PO DAILY 11/07/16 03/10/17 History Cholecalciferol (Vitamin D3) 2,000 unit PO DAILY 11/07/16 03/10/17 History [Vitamin D3] Linagliptin [Tradjenta] 5 mg PO HS 12/19/16 03/10/17 History Sertraline HCl [Zoloft] 200 mg PO DAILY #28 01/27/17 03/10/17 Rx ARIPiprazole [ARIPiprazole Odt] 15 mg PO HS 02/14/17 03/10/17 History Albuterol Inhaler [Ventolin Hfa 2 puff INHALATION RT-QID PRN 02/14/17 03/10/17 History Inhaler] Lisinopril [Zestril] 5 mg PO DAILY #30 tab 02/17/17 03/10/17 Rx Gabapentin [Neurontin] 400 mg PO TID 02/24/17 03/10/17 History Isosorbide Mononitrate ER [Imdur] 30 mg PO DAILY #30 tab 02/26/17 03/10/17 Rx hydrALAZINE HCL [Apresoline] 25 mg PO BID #60 tab 02/26/17 03/10/17 Rx traMADol HCl [Ultram] 50 mg PO Q8H PRN #30 tab 02/26/17 03/10/17 Rx Allergies Allergy/AdvReac Type Severity Reaction Status Date / Time erythromycin base Allergy Severe Swelling Verified 03/10/17 07:29 [Erythromycin Base] codeine Allergy Unknown Swelling Verified 03/10/17 07:29 meclizine Allergy Unknown Unknown Verified 03/10/17 07:29 Penicillins Allergy Unknown Rash/Hives Verified 03/10/17 07:29 shellfish derived Allergy Unknown Anaphylaxis Verified 03/10/17 07:29 Fish Containing Products Allergy Anaphylaxis Verified 03/10/17 07:29 [Fish] Iodinated Contrast- Oral and Allergy Anaphylaxis Verified 03/10/17 07:29 IV Dye cephalexin monohydrate AdvReac Unknown Nausea & Verified 03/10/17 07:29 [From Keflex] Vomiting naproxen AdvReac Unknown Compromises Verified 03/10/17 07:29 Kidney Function atorvastatin calcium AdvReac Myalgia Verified 03/10/17 07:29 [From Lipitor] hydrocodone [From [place]] AdvReac Rapid Verified 03/10/17 07:29 Heart Rate Physical Exam Vitals: Vital Signs Temp Pulse Resp BP Pulse Ox 03/11/17 04:00 97.9 F 76 17 133/79 96 03/11/17 00:00 97.6 F 74 18 130/67 95 03/10/17 20:00 97.1 F L 72 18 133/82 97 03/10/17 15:00 97.1 F L 69 18 109/53 96 03/10/17 12:25 96.8 F L 72 18 131/75 95 Intake and Output 03/10/17 03/11/17 03/11/17 22:59 06:59 14:59 Intake Total 690 Output Total 700 Balance 690 -700 Intake: Intake, IV Titration 450 Amount Magnesium Sulfate-D5w Pmx 200 1 gm In Dextrose/Water 1 100ml.bag @ 100 mls/hr IVPB Q1H JAKE Rx#: [id number] Sodium Chloride 0.9% 1, 250 000 ml @ 75 mls/hr IV . [id number] JAKE Rx#:[id number] Oral 240 Output: Urine 700 Other: Voiding Method Urinal Urinal # Voids 1 # Bowel Movements 1 1 Weight 113.6 kg Results - Lab Results Most recent lab results Calcium 8.9 mg/dL (8.4-10.2) 03/11/17 06:08 Magnesium 1.7 mg/dL (1.6-2.3) 03/11/17 06:08 03/10/17 02:30 03/11/17 06:08 Assessment and Plan Plan: Assessment: #1. Nonoliguric acute kidney injury mostly prerenal secondary to poor oral intake and diarrhea. Patient was also taking lisinopril which is currently held. He was also taking metformin. Patient admits to taking a diuretic as well but is unsure of the dose. I don't see Lasix and his home medications however. Renal function is improving. Creatinine was 3.1 admission and is down to 1.5 today. Urinalysis is quite benign. #2. Chest pain which has resolved now. He does have significant history of coronary artery disease with multiple interventions in the past. Cardiology following. #3. Mild hyperkalemia secondary to acute kidney injury. No evidence of acidosis. Blood sugars are slightly on the higher side as well. #4. Systolic CHF with ejection fraction of 40-45%. Compensated. #5. Diabetes mellitus. Plan: Continue normal saline to be run at 75 mL an hour. 10 units of IV regular insulin with half an amp of D50. Maintain low potassium diet. Repeat potassium level at 5 PM today. Continue to hold lisinopril for now. Repeat electrolytes in the morning. Thank you for the consultation. I will continue to follow the patient with you during his hospital stay.
[2017-03-11] MEDS ORDERED: DEXTROSE 50%-WATER 50 ML SYRINGE IVP STA ×2 (10:14→20:30)
[2017-03-11 11:33] LABS: Glucose,Whole Blood 213 mg/dL (75-99)
[2017-03-11] MEDS: MAGNESIUM SULFATE-D5W PMX 1 GM in DEXTROSE/WATER 1 100ML.BAG IVPB SCH ×2 (11:35→13:31)
[2017-03-11 13:08] VITALS: BMI 40.4
[2017-03-11 13:37] LABS: Glucose,Whole Blood 283 mg/dL (75-99)
[2017-03-11 15:35] LABS: Glucose,Whole Blood 198 mg/dL (75-99)
--- NOTE | 2017-03-11 16:18 | P.PN ---
Subjective Progress Note Date: 03/11/17 Principal diagnosis: Chest pain This is a 41-year-old gentleman with known history of coronary artery disease and multiple stent placements, most recent stent was placed in December of this year at [facility], he underwent stenting of the left circumflex at that time, patient also had prior stenting of the LAD. History of severe ischemic cardiomyopathy with prior AICD, hypertension, diabetes, hyperlipidemia , sleep apnea, prior TIA, GERD. Patient follows with a carbon dioxide operator in [place]. He presents to the hospital on this occasion with symptoms of burning sensation in his chest which she states feels like heartburn. He had his initial symptoms yesterday morning, he has no sublingual nitroglycerin so he took a baby aspirin. Later in the evening he again developed symptoms and again took aspirin this time with no relief, so for this reason he came to the emergency room for further evaluation. Patient also states for further past 2 or 3 days he's been having frequent diarrhea stools. EKG on admission here reveals a paced rhythm with minimal ST depression in the inferior leads. Chest x-ray does not reveal any active cardiopulmonary disease. Hemoglobin 12.3, platelet count 217, sodium 131, potassium 4.9, BUN 35, creatinine 3.2. mag level I.5, troponin 0.034. At the time of my examination this morning, patient denies any further chest discomfort. Patient does have a brace to his right lower extremity, he says that he fell approximately one month ago and was recently told to have an ankle fracture.\ 03/11/2017 Patient seen and examined this morning, creatinine down to 1.5 today, potassium 5.6. Patient denies any further chest discomfort. He is complaining of some mild lower back discomfort today. Troponin 0.034, 0.103, 0.084. Hemodynamically stable. Objective - Vital Signs Vital signs: Vital Signs Temp 97 F L 03/11/17 15:30 Pulse 70 03/11/17 15:30 Resp 16 03/11/17 15:42 BP 109/58 03/11/17 15:30 Pulse Ox 94 L 03/11/17 15:30 Intake & Output 03/10/17 03/11/17 03/11/17 18:59 06:59 18:59 Intake Total 1040 1040 Output Total 700 Balance 1040 -700 1040 Weight 113.6 kg 113.6 kg Intake: IV 150 600 Sodium Chloride 0.9% 1, 150 600 000 ml @ 75 mls/hr IV . [id number] JAKE Rx#:[id number] Intake, IV Titration 450 200 Amount Magnesium Sulfate-D5w Pmx 200 1 gm In Dextrose/Water 1 100ml.bag @ 100 mls/hr IVPB Q1H JAKE Rx#: [id number] Magnesium Sulfate-D5w Pmx 200 1 gm In Dextrose/Water 1 100ml.bag @ 100 mls/hr IVPB Q1H JAKE Rx#: [id number] Sodium Chloride 0.9% 1, 250 000 ml @ 75 mls/hr IV . [id number] JAKE Rx#:[id number] Oral 440 240 Output: Urine 700 Other: Voiding Method Urinal Urinal # Voids 1 2 # Bowel Movements 1 1 - Exam PHYSICAL EXAMINATION: HEENT: Head is atraumatic, normocephalic. Pupils equal, round. Neck is supple. There is no elevated jugular venous pressure. HEART EXAMINATION: [Heart S1, S2 normal. No murmur or gallop heard.] CHEST EXAMINATION:[ Lungs are clear to auscultation and precussion. No chest wall tenderness is noted on palpation or with deep breathing.] ABDOMEN: [ Soft, nontender. Bowel sounds are heard. No organomegaly noted]. EXTREMITIES:[ 2+ peripheral pulses with no evidence of peripheral edema and no calf tenderness noted]. NEUROLOGIC [patient is awake, alert and oriented -3.] . - Labs CBC & Chem 7: 03/10/17 02:30 03/11/17 06:08 Labs: Abnormal Lab Results - Last 24 Hours (Table) 03/10/17 03/10/17 03/10/17 Range/Units 15:20 15:20 16:22 Sodium (137-145) mmol/L Potassium (3.5-5.1) mmol/L BUN (9-20) mg/dL Creatinine (0.66-1.25) mg/dL Glucose (74-99) mg/dL POC Glucose (mg/dL) 244 H (75-99) mg/dL Hemoglobin A1c 9.7 H (4.2-6.1) % Total Creatine Kinase 48 L (55-170) U/L Troponin I 0.084 H* (0.000-0.034) ng/mL Triglycerides (<150) mg/dL Urine Protein (Negative) 03/10/17 03/11/17 03/11/17 Range/Units 21:08 00:28 06:08 Sodium 135 L (137-145) mmol/L Potassium 5.6 H (3.5-5.1) mmol/L BUN 31 H (9-20) mg/dL Creatinine 1.50 H (0.66-1.25) mg/dL Glucose 180 H (74-99) mg/dL POC Glucose (mg/dL) 168 H (75-99) mg/dL Hemoglobin A1c (4.2-6.1) % Total Creatine Kinase (55-170) U/L Troponin I (0.000-0.034) ng/mL Triglycerides 272 H (<150) mg/dL Urine Protein Trace H (Negative) 03/11/17 03/11/17 03/11/17 Range/Units 06:14 11:31 13:35 Sodium (137-145) mmol/L Potassium (3.5-5.1) mmol/L BUN (9-20) mg/dL Creatinine (0.66-1.25) mg/dL Glucose (74-99) mg/dL POC Glucose (mg/dL) 169 H 213 H 283 H (75-99) mg/dL Hemoglobin A1c (4.2-6.1) % Total Creatine Kinase (55-170) U/L Troponin I (0.000-0.034) ng/mL Triglycerides (<150) mg/dL Urine Protein (Negative) 03/11/17 Range/Units 15:28 Sodium (137-145) mmol/L Potassium (3.5-5.1) mmol/L BUN (9-20) mg/dL Creatinine (0.66-1.25) mg/dL Glucose (74-99) mg/dL POC Glucose (mg/dL) 198 H (75-99) mg/dL Hemoglobin A1c (4.2-6.1) % Total Creatine Kinase (55-170) U/L Troponin I (0.000-0.034) ng/mL Triglycerides (<150) mg/dL Urine Protein (Negative) Assessment and Plan Plan: Assessment and plan #1 symptoms of chest discomfort which the patient describes as heartburn sensation, his usual angina is more in the form of chest pressure. Possible acute coronary syndrome. EKG shows a paced rhythm with inferior ST depression. #2 known history of coronary artery disease with prior multiple stent placements , most recently patient underwent a stenting of the circumflex in [place] in December of this year, on Effient and aspirin. #3 acute renal failure, creatinine 3.2. Patient states he's been having frequent diarrhea stools for the past 2-3 days #4 ischemic cardio myopathy with prior AICD implant #5 hypomagnesemia #6 hypertension #7 hyperlipidemia #8 prior TIA #9 GERD #10 sleep apnea #11 recent right ankle fracture Plan From cardiology's perspective, we'll continue the patient on his current medications. Discontinue Nitropaste. If patient has no further chest discomfort R recommendation is that he may be able to be discharged home in the morning to follow-up with his carbon dioxide operator in [place]. DNP note has been reviewed, I agree with a documented findings and plan of care. Patient was seen and examined.
[2017-03-11 16:35] LABS: Glucose,Whole Blood 228 mg/dL (75-99)
--- NOTE | 2017-03-11 17:31 | P.PN ---
Progress Note - Text Progress Note Date: 03/11/17 DATE OF SERVICE: 03/11/2017 PRESENTING COMPLAINT: Chest pain HISTORY OF PRESENT ILLNESS: 41-year-old male who developed chest pressure that came and went around 11:30 depression became more severe burning in nature started radiating to his arms and neck, no shortness of breath no dizziness no perspiration came for further evaluation. Has an extensive coronary artery disease history. INTERVAL HISTORY: 03/11/2017: Patient lying in bed appears comfortable, no further episodes of chest pain, echocardiogram pending, will get 2 more sets of troponins, increase Imdur, repeat EKG. He is tolerating his diet, ambulatory within the room. REVIEW OF SYSTEMS: Done for constitutional ,cardiovascular, GI, pulmonary with relevant findings as above. CURRENT MEDICATIONS Aspirin 81 mg by mouth daily, Neurontin 400 mg by mouth 3 times a day, Amaryl 4 mg by mouth before meals twice a day, Apresoline 25 mg by mouth twice a day, Imdur 60 mg by mouth daily, Cogentin 5 mg by mouth at bedtime, lisinopril 5 mg by mouth daily, Imodium 2 mg by mouth 3 times a day, Glucophage 1000 mg before meals twice a day, metoprolol 50 mg by mouth twice a day, rosuvastatin calcium 40 mg by mouth at bedtime, Protonix 40 mg by mouth at bedtime, Effient 10 mg by mouth daily, Mysoline 100 mg by mouth at bedtime, Ranexa 1000 mg by mouth twice a day, Zoloft 200 mg by mouth daily. PHYSICAL EXAM VITAL SIGNS: Temperature 97.0, pulse 70, respiratory rate 16, blood pressure 109/58, oxygen saturation 94% on room air. GENERAL APPEARANCE: Lying in bed, anxious appearing EYES: Pupils equal. Conjunctiva normal. NECK: JVD not raised. Mass not palpable. RESPIRATORY: Respiratory effort normal. Lungs clear to auscultation. CARDIOVASCULAR: First and second sounds normal. No edema. ABDOMEN: Soft. Liver and spleen not palpable. No tenderness. No mass palpable. PSYCHIATRY: Alert and oriented x3. Mood and affect anxious appearing. INVESTIGATIONS: Sodium 135, potassium 5.6, BUN 31, creatinine 1.50, Accu-Cheks noted. ASSESSMENT: -Acute coronary syndrome in a patient with known coronary artery disease. -Chronic congestive heart failure from systolic dysfunction EF 40-45% from underlying coronary artery disease. -Coronary artery disease with prior history of stent. -Diabetes mellitus type 2, chronically on insulin. -Gastroesophageal reflux disease. -Hyperlipidemia. -Essential hypertension. -Obstructive sleep apnea. -Diabetes mellitus type 2 causing peripheral neuropathy. -Chronic gastritis. -Depression not otherwise specified. -Primary osteoarthritis multiple joints, bilateral. -Morbid obesity, BMI greater than 40. -Acute renal failure probably acute tubular necrosis. PLAN: Renal function improving, continue gentle hydration continue to hold Lasix and lisinopril as well as metformin. Hyperkalemia corrected with 10 units of IV regular insulin and half an amp of D50, repeat potassium at 5 PM. Continue current medications per cardiology nitro paste discontinued. Plan discussed with patient the bedside he is in agreement. Continue to follow closely. COFFEE BREWER statement: Patient was seen and examined by nurse practitioner Jaan Guzmán and all elements of the case discussed with attending Dr. Chiu
[2017-03-11] MEDS: metFORMIN 500 MG TAB PO SCH (17:41)
[2017-03-11] MEDS: Rosuvastatin Calcium 40 MG PO SCH (19:55)
[2017-03-11] MEDS: PANTOPRAZOLE 40 MG TABLET PO SCH (19:56)
[2017-03-11] MEDS: PRIMIDONE 50 MG TAB PO SCH (19:56)
[2017-03-11] MEDS: LINAGLIPTIN 5 MG TABLET PO SCH (19:56)
[2017-03-11 20:46] LABS: Glucose,Whole Blood 142 mg/dL (75-99)
--- NOTE | 2017-03-11 21:43 | CT ---
EXAMINATION TYPE: CT brain wo con DATE OF EXAM: 03/11/2017 COMPARISON: 06/20/2016 HISTORY: confusion CT DLP: 1260 mGycm. Automated Exposure Control for Dose Reduction was Utilized. TECHNIQUE: CT scan of the head is performed without contrast. FINDINGS: There is no acute intracranial hemorrhage, mass effect, or midline shift identified. The ventricles and sulci are within normal limits in size. The globes are intact and the visualized sin uses are clear. IMPRESSION: No acute intracranial hemorrhage, mass effect, or midline shift is seen.
[2017-03-11 22:41] LABS: Glucose,Whole Blood 62 mg/dL (75-99)
[2017-03-11 22:55] LABS: Glucose,Whole Blood 85 mg/dL (75-99)
--- NOTE | 2017-03-11 23:34 | P.CNNES ---
History of Present Illness Consult date: 03/11/17 Reason for Consult: Patient with possible seizure episode. History of Present Illness: This patient is a 41-year-old right-handed white male was initially admitted to [facility] on 03/10/2017 for evaluation of chest pain. The patient was admitted with severe and recurrent angina. He was complaining of chest pain and chest pressure in the chest which seemed to wax and wane. It began to radiate into his neck and arm region. He is being seen by cardiology and his medications are being adjusted. He also has evidence of acute kidney injury which is felt to be nonoliguric acute kidney injury mostly prerenal secondary to poor oral intake and diarrhea. The patient was coming along fairly well until 8 PM this evening. His was in the room and apparently had a small seizure-like event. He began shaking in his eyes rolled back into his head. Episode lasted only 15-30 seconds in duration. He was sent for a computed tomography scan of the brain following this event this evening. This CAT scan came back negative for any evidence of acute stroke or hemorrhage. The patient is now resting comfortably. He is not aware what had happened this evening. He has no previous history of seizures or head injury. We are recommending that he undergo routine EEG tomorrow for further evaluation. The patient states he does continue to have chest discomfort. 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 We will continue to monitor him for any further seizure-like events. His overall prognosis at this time remains guarded. Neurology is now been consulted for further evaluation and recommendations. Review of Systems Constitutional: Denies chills, Denies fever Eyes: denies blurred vision, denies pain Ears, nose, mouth and throat: Denies headache, Denies sore throat Cardiovascular: Denies chest pain, Denies shortness of breath Respiratory: Denies cough Gastrointestinal: Denies abdominal pain, Denies diarrhea, Denies nausea, Denies vomiting Musculoskeletal: Denies myalgias Integumentary: Denies pruritus, Denies rash Neurological: Reports change in mentation, Reports confusion, Reports convulsions, Reports memory loss, Reports seizures, Reports syncope, Denies numbness, Denies weakness Psychiatric: Reports anxiety attacks, Reports disorientation, Denies anxiety, Denies depression Endocrine: Denies fatigue, Denies weight change Past Medical History Past Medical History: Asthma, Coronary Artery Disease (CAD), Chest Pain / Angina , Heart Failure, CVA/TIA, Diabetes Mellitus, GERD/Reflux, Hyperlipidemia, Hypertension, Myocardial Infarction ([place]), Osteoarthritis (OA), Pneumonia, Skin Disorder, Sleep Apnea/CPAP/BIPAP Additional Past Medical History / Comment(s): Coronary artery disease with multiple vessel disease, ischemic cardiomyopathy, diabetic neuropathy bilateral hands and feet, hypertensive cardiovascular disease, chronic gastritis, current R ankle fracture, disc disease, chronic back pain, depression with hx of suicide attempts, GASTROPARESIS, PSORIASES,NIDDM type II, UTI, migraines, TIA , PUD, hiatal hernia, L rotator cuff tear, bronchitis, pseudoaneurysm L groin post procedure. Last Myocardial Infarction Date:: 06/03/16 per pt. History of Any Multi-Drug Resistant Organisms: MRSA Date of last positivie culture/infection: 06/09/16 MDRO Source:: face Past Surgical History: AICD, Appendectomy, Cholecystectomy, Heart Catheterization With Stent, Hernia Repair Additional Past Surgical History / Comment(s): Pt has had multiple cardiac procedures-caths/PTCA/stenting with last stent place 2 weeks ago at [facility]-Jan. 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 Past Anesthesia/Blood Transfusion Reactions: No Reported Reaction Additional Past Anesthesia/Blood Transfusion Reaction / Comment(s): . Date of Last Stent Placement:: 12/23/16 Type of Cardiac Device: Biventricular Pacemaker, AICD Device Placement Date:: 09/19/15 Smoking Status: Never smoker - Past Family History Mother Family Medical History: Coronary Artery Disease (CAD), Myocardial Infarction ([place] ) Additional Family Medical History / Comment(s): 7 [place] and faulty heart valve. Pt does not know the age when mother had her MIs. Father History Unknown: Yes Additional Family Medical History / Comment(s): Does not know who father is Brother(s) Family Medical History: Congestive Heart Failure (CHF), Myocardial Infarction ( [place]) Additional Family Medical History / Comment(s): Parkinsons. Pt does not know at what age his brother had a [place] Patient has Family Medical History: No Reported History Additional Family Medical History / Comment(s): There is a strong family history for heart disease, hypertension, and diabetes. Medications and Allergies Home Medications Medication Instructions Recorded Confirmed Type Nitroglycerin Sl Tabs [Nitrostat] 0.4 mg SUBLINGUAL Q5M PRN 10/13/13 03/10/17 History metFORMIN HCL 1,000 mg PO BID 07/03/15 03/10/17 History Omeprazole [PriLOSEC] 40 mg PO HS 08/13/15 03/10/17 History Dulaglutide [Trulicity] 1.5 mg SQ OROZCO 03/10/16 03/10/17 History Glimepiride 4 mg PO BID 03/10/16 03/10/17 History Rosuvastatin Calcium 40 mg PO HS 05/05/16 03/10/17 History Ranolazine [Ranexa] 1,000 mg PO BID 06/09/16 03/10/17 History Primidone [Mysoline] 100 mg PO HS 06/30/16 03/10/17 History Prasugrel [Effient] 10 mg PO DAILY tab 07/01/16 03/10/17 Rx Loperamide [Imodium] 2 mg PO TID 10/20/16 03/10/17 History Metoprolol Tartrate 50 mg PO BID 10/20/16 03/10/17 History Aspirin EC [Ecotrin Low Dose] 81 mg PO DAILY 11/07/16 03/10/17 History Cholecalciferol (Vitamin D3) 2,000 unit PO DAILY 11/07/16 03/10/17 History [Vitamin D3] Linagliptin [Tradjenta] 5 mg PO HS 12/19/16 03/10/17 History Sertraline HCl [Zoloft] 200 mg PO DAILY #28 01/27/17 03/10/17 Rx ARIPiprazole [ARIPiprazole Odt] 15 mg PO HS 02/14/17 03/10/17 History Albuterol Inhaler [Ventolin Hfa 2 puff INHALATION RT-QID PRN 02/14/17 03/10/17 History Inhaler] Lisinopril [Zestril] 5 mg PO DAILY #30 tab 02/17/17 03/10/17 Rx Gabapentin [Neurontin] 400 mg PO TID 02/24/17 03/10/17 History Isosorbide Mononitrate ER [Imdur] 30 mg PO DAILY #30 tab 02/26/17 03/10/17 Rx hydrALAZINE HCL [Apresoline] 25 mg PO BID #60 tab 02/26/17 03/10/17 Rx traMADol HCl [Ultram] 50 mg PO Q8H PRN #30 tab 02/26/17 03/10/17 Rx Allergies Allergy/AdvReac Type Severity Reaction Status Date / Time erythromycin base Allergy Severe Swelling Verified 03/10/17 07:29 [Erythromycin Base] codeine Allergy Unknown Swelling Verified 03/10/17 07:29 meclizine Allergy Unknown Unknown Verified 03/10/17 07:29 Penicillins Allergy Unknown Rash/Hives Verified 03/10/17 07:29 shellfish derived Allergy Unknown Anaphylaxis Verified 03/10/17 07:29 Fish Containing Products Allergy Anaphylaxis Verified 03/10/17 07:29 [Fish] Iodinated Contrast- Oral and Allergy Anaphylaxis Verified 03/10/17 07:29 IV Dye cephalexin monohydrate AdvReac Unknown Nausea & Verified 03/10/17 07:29 [From Keflex] Vomiting naproxen AdvReac Unknown Compromises Verified 03/10/17 07:29 Kidney Function atorvastatin calcium AdvReac Myalgia Verified 03/10/17 07:29 [From Lipitor] hydrocodone [From [place]] AdvReac Rapid Verified 03/10/17 07:29 Heart Rate Physical Examination - Vital Signs Vital Signs: Vital Signs Temp Pulse Resp BP Pulse Ox 03/11/17 15:42 16 03/11/17 15:30 97 F L 70 16 109/58 94 L 03/11/17 11:47 65 16 125/68 97 03/11/17 11:45 16 03/11/17 09:40 97.5 F L 74 16 123/71 95 03/11/17 04:00 97.9 F 76 17 133/79 96 03/11/17 00:00 97.6 F 74 18 130/67 95 Intake and Output 03/11/17 03/11/17 03/11/17 06:59 14:59 22:59 Intake Total 240 800 Output Total 700 Balance -700 240 800 Intake: IV 600 Sodium Chloride 0.9% 1, 600 000 ml @ 75 mls/hr IV . [id number] JAKE Rx#:[id number] Intake, IV Titration 200 Amount Magnesium Sulfate-D5w Pmx 200 1 gm In Dextrose/Water 1 100ml.bag @ 100 mls/hr IVPB Q1H [facility] Rx#: [id number] Oral 240 Output: Urine 700 Other: Voiding Method Urinal Urinal Urinal # Voids 1 2 # Bowel Movements 1 1 Weight 113.6 kg 113.6 kg Patient Weight 03/12/17 06:59 Weight 113.6 kg - Constitutional General appearance: cooperative, obese - EENT EENT: PERRL, mucous membranes moist - Respiratory Respiratory: lungs clear, normal breath sounds - Cardiovascular Cardiovascular: regular rate, normal S1, normal S2 Extremities: no peripheral edema bilaterally - Gastrointestinal Gastrointestinal: normoactive bowel sounds - Integumentary Integumentary: normal - Neurologic Cranial nerve examination: PERRL, EOMI, VFF, V1/V2/V3 grossly intact, face symmetric, tongue midline, intact gag reflex, intact corneal reflex, normal palatal elevation Speech examination: intact Sensorimotor examination: intact Detailed motor examination: grossly full strength in all extremities Motor examination - right side: 4/5: biceps, triceps, wrist flexion, wrist extension, human development professor, hip flexors, knee extensors, dorsiflexion, toe extension (EHL) , plantarflexion Motor examination - left side: 4/5: biceps, triceps, wrist flexion, wrist extension, human development professor, hip flexors, knee extensors, dorsiflexion, toe extension (EHL) , plantarflexion Detailed sensory examination: intact Reflex and gait examination: intact Reflexes: 1+: ankle, bicep, knee, tricep - Musculoskeletal Musculoskeletal: no pain - Psychiatric Psychiatric: mood/affect appropriate, cooperative Results - Laboratory Findings CBC and BMP: 03/10/17 02:30 03/11/17 18:19 Abnormal Lab Findings: Abnormal Labs 03/10/17 03/10/17 03/10/17 02:30 02:30 03:04 Hgb 12.3 L Hct 37.0 L RDW 15.7 H APTT 19.4 L Sodium 131 L Potassium Carbon Dioxide 20 L BUN 35 H Creatinine 3.20 H Glucose 217 H POC Glucose (mg/dL) Hemoglobin A1c Magnesium 1.5 L Total Creatine Kinase Troponin I Total Protein 5.7 L Albumin 3.3 L Triglycerides Urine Protein 03/10/17 03/10/17 03/10/17 08:59 09:19 11:58 Hgb Hct RDW APTT Sodium Potassium Carbon Dioxide BUN Creatinine Glucose POC Glucose (mg/dL) 231 H 267 H Hemoglobin A1c Magnesium Total Creatine Kinase Troponin I 0.103 H* Total Protein Albumin Triglycerides Urine Protein 03/10/17 03/10/17 03/10/17 15:20 15:20 16:22 Hgb Hct RDW APTT Sodium Potassium Carbon Dioxide BUN Creatinine Glucose POC Glucose (mg/dL) 244 H Hemoglobin A1c 9.7 H Magnesium Total Creatine Kinase 48 L Troponin I 0.084 H* Total Protein Albumin Triglycerides Urine Protein 03/10/17 03/11/17 03/11/17 21:08 00:28 06:08 Hgb Hct RDW APTT Sodium 135 L Potassium 5.6 H Carbon Dioxide BUN 31 H Creatinine 1.50 H Glucose 180 H POC Glucose (mg/dL) 168 H Hemoglobin A1c Magnesium Total Creatine Kinase Troponin I Total Protein Albumin Triglycerides 272 H Urine Protein Trace H 03/11/17 03/11/17 03/11/17 06:14 11:31 13:35 Hgb Hct RDW APTT Sodium Potassium Carbon Dioxide BUN Creatinine Glucose POC Glucose (mg/dL) 169 H 213 H 283 H Hemoglobin A1c Magnesium Total Creatine Kinase Troponin I Total Protein Albumin Triglycerides Urine Protein 03/11/17 03/11/17 03/11/17 15:28 16:19 17:09 Hgb Hct RDW APTT Sodium Potassium 5.7 H Carbon Dioxide BUN Creatinine Glucose POC Glucose (mg/dL) 198 H 228 H Hemoglobin A1c Magnesium Total Creatine Kinase Troponin I Total Protein Albumin Triglycerides Urine Protein 03/11/17 03/11/17 18:19 20:26 Hgb Hct RDW APTT Sodium Potassium 5.5 H Carbon Dioxide BUN Creatinine Glucose POC Glucose (mg/dL) 142 H Hemoglobin A1c Magnesium Total Creatine Kinase Troponin I Total Protein Albumin Triglycerides Urine Protein Assessment and Plan (1) Syncope, cardiogenic Current Visit: Yes Status: Acute SNOMED Code(s): 109738573 (2) Acute encephalopathy Current Visit: Yes Status: Acute SNOMED Code(s): 0374919 (3) Cardiomyopathy Current Visit: No Status: Acute SNOMED Code(s): 90154998 (4) History of implantable cardioverter-defibrillator (ICD) placement Current Visit: No Status: Acute SNOMED Code(s): 635816807 Plan: This patient is a 41-year-old male who was initially admitted to hospital with acute angina and chest pain. He is being followed closely by cardiology. He does have a pacemaker defibrillator placement. Patient was coming along well until 8 PM this evening when he had an episode of unresponsiveness. This was witnessed by his . She describes him as having a seizure-like event with eyes rolled back and shaking. Patient was confused right after the event. He underwent a computed tomography scan of the brain which was negative for any acute changes. We are recommending routine EEG to be done tomorrow morning to rule out seizure focus. His overall prognosis at this time remains guarded. Patient has no previous history of head trauma or seizures in the past. We will continue close neurological follow-up this patient during this admission. His overall prognosis at this time remains guarded. He was advised of the [place] driving law which states he should not drive for greater than 6 months following his last syncopal episode and/or seizure. His overall prognosis at this time remains guarded. Time with Patient: Greater than 30
[2017-03-12] MEDS: SODIUM CHLORIDE 0.9% 1,000 ML IV SCH ×3 (03:19→21:01)
--- NOTE | 2017-03-12 05:07 | PN ---
PROGRESS NOTE DATE OF SERVICE: 03/11/2017. ATTENDING NOTE: This patient was seen and examined by me. I discussed with my nurse practitioner, Ms. Guzmán. Patient admitted with chest pain, acute renal failure. No further episodes of chest pain. PHYSICAL EXAMINATION: On examination, afebrile, blood pressure 123/71. INVESTIGATIONS: Potassium 5.6. BUN 31, creatinine 1.50. ASSESSMENT: 1. Acute renal failure possibly acute tubular necrosis, slowly improving. 2. Hyperkalemia. The patient was seen by Dr. Dangelo from Nephrology. Patient gently getting hydrated. ROWAN inhibitor is to be held. From a cardiology standpoint, nothing further to add at the present time. Follow labs closely. The patient was seen by me this morning. I am doing the note later in the day. MMODL / IJN: [id number] /
[2017-03-12 05:43] LABS: Glucose,Whole Blood 196 mg/dL (75-99)
[2017-03-12] MEDS: metFORMIN 500 MG TAB PO SCH ×2 (06:35→17:28)
[2017-03-12] MEDS: GLIMEPIRIDE 4 MG TAB PO SCH ×2 (06:35→17:28)
[2017-03-12] MEDS: INSULIN LISPRO (humaLOG) 300 UNIT/3 ML VIAL SQ SCH ×3 (06:35→17:28)
[2017-03-12 07:28] LABS: Anion Gap 9 mmol/L; Blood Urea Nitrogen 33 mg/dL (9-20); Calcium 8.4 mg/dL (8.4-10.2); Carbon Dioxide 22 mmol/L (22-30); Chloride 103 mmol/L (98-107); Glucose 187 mg/dL (74-99); Magnesium 1.9 mg/dL (1.6-2.3); Non-African American GFR(MDRD) 54 (>60 ml/min/1.73 sqM); Sodium 134 mmol/L (137-145)
[2017-03-12] MEDS: ASPIRIN 81 MG PO SCH (08:41)
[2017-03-12] MEDS: GABAPENTIN 400 MG CAP PO SCH ×3 (08:41→21:01)
[2017-03-12] MEDS: hydrALAZINE HCL 25 MG TAB PO SCH ×2 (08:41→19:40)
[2017-03-12] MEDS: CHOLECALCIFEROL 1,000 UNIT TAB PO SCH (08:41)
[2017-03-12] MEDS: METOPROLOL TARTRATE 50 MG TAB PO SCH ×2 (08:42→19:40)
[2017-03-12] MEDS: PRASUGREL 10 MG TAB PO SCH (08:42)
[2017-03-12] MEDS: ISOSORBIDE MONONITRATE ER 60 MG TAB.ER.24H PO SCH (08:42)
[2017-03-12] MEDS: LOPERAMIDE 2 MG CAP PO SCH ×3 (08:42→21:01)
[2017-03-12] MEDS: RANOLAZINE 500 MG TAB.ER.12H PO SCH ×2 (08:42→19:40)
[2017-03-12] MEDS: SERTRALINE 100 MG TAB PO SCH (08:43)
--- NOTE | 2017-03-12 10:31 | P.PN ---
Subjective Patient is seen in follow for acute kidney injury. Creatinine was 3.1 admission and is down to 1.44 today. Patient presented with chest pain which is now resolved. Diuretics are held and is currently maintained on normal saline at 75 mL an hour. He had a seizure-like episode last night and is scheduled for an EEG today. Oral intake is good. Urine output is good. Vital signs are stable. General: The patient appeared well nourished and normally developed. HEENT: Head exam is unremarkable. Neck is without jugular venous distension. LUNGS: Lungs are clear to auscultation and percussion. Breath sounds decreased. HEART: Rate and Rhythm are regular. First and second heart sounds normal. No murmurs, rubs or gallops. ABDOMEN: Abdominal exam reveals normal bowel sounds. Non-tender and non- distended. No evidence of peritonitis. EXTREMITITES: No clubbing, cyanosis, or edema. Objective - Vital Signs Vital signs: Vital Signs Temp 97.6 F 03/12/17 08:40 Pulse 80 03/12/17 08:40 Resp 16 03/12/17 08:40 BP 124/67 03/12/17 08:40 Pulse Ox 94 L 03/12/17 08:40 Intake & Output 03/11/17 03/12/17 03/12/17 18:59 06:59 18:59 Intake Total 1040 1770 Balance 1040 1770 Weight 113.6 kg 115.4 kg Intake: IV 600 1320 Sodium Chloride 0.9% 1, 600 1320 000 ml @ 75 mls/hr IV . [id number] JAKE Rx#:[id number] Intake, IV Titration 200 450 Amount Magnesium Sulfate-D5w Pmx 200 1 gm In Dextrose/Water 1 100ml.bag @ 100 mls/hr IVPB Q1H JAKE Rx#: [id number] Sodium Chloride 0.9% 1, 450 000 ml @ 75 mls/hr IV . [id number] JAKE Rx#:[id number] Oral 240 Other: Voiding Method Urinal Urinal Urinal # Voids 2 2 # Bowel Movements 1 - Labs CBC & Chem 7: 03/10/17 02:30 03/12/17 05:56 Labs: Abnormal Lab Results - Last 24 Hours (Table) 03/11/17 03/11/17 03/11/17 Range/Units 11:31 13:35 15:28 Sodium (137-145) mmol/L Potassium (3.5-5.1) mmol/L BUN (9-20) mg/dL Creatinine (0.66-1.25) mg/dL Glucose (74-99) mg/dL POC Glucose (mg/dL) 213 H 283 H 198 H (75-99) mg/dL 03/11/17 03/11/17 03/11/17 Range/Units 16:19 17:09 18:19 Sodium (137-145) mmol/L Potassium 5.7 H 5.5 H (3.5-5.1) mmol/L BUN (9-20) mg/dL Creatinine (0.66-1.25) mg/dL Glucose (74-99) mg/dL POC Glucose (mg/dL) 228 H (75-99) mg/dL 03/11/17 03/11/17 03/12/17 Range/Units 20:26 22:06 05:42 Sodium (137-145) mmol/L Potassium (3.5-5.1) mmol/L BUN (9-20) mg/dL Creatinine (0.66-1.25) mg/dL Glucose (74-99) mg/dL POC Glucose (mg/dL) 142 H 62 L 196 H (75-99) mg/dL 03/12/17 Range/Units 05:56 Sodium 134 L (137-145) mmol/L Potassium (3.5-5.1) mmol/L BUN 33 H (9-20) mg/dL Creatinine 1.44 H (0.66-1.25) mg/dL Glucose 187 H (74-99) mg/dL POC Glucose (mg/dL) (75-99) mg/dL Assessment and Plan Plan: Assessment: #1. Nonoliguric acute kidney injury mostly prerenal secondary to poor oral intake and diarrhea. Patient was also taking lisinopril which is currently held. He was also taking metformin. Patient admits to taking a diuretic as well but is unsure of the dose. I don't see Lasix and his home medications however. Renal function is improving. Creatinine was 3.1 admission and is down to 1.44 today. Urinalysis is quite benign. #2. Chest pain which has resolved now. He does have significant history of coronary artery disease with multiple interventions in the past. Cardiology following. #3. Mild hyperkalemia secondary to acute kidney injury. No evidence of acidosis. Blood sugars are slightly on the higher side as well. Improved. #4. Systolic CHF with ejection fraction of 40-45%. Compensated. #5. Diabetes mellitus. #6. Episode of unresponsiveness with concern of seizure. EEG scheduled for today. Neurology following. Plan: Continue normal saline - decrease rate to 50 mL an hour. Maintain low potassium diet. Continue to hold lisinopril for now. Repeat electrolytes in the morning.
[2017-03-12 12:19] LABS: Glucose,Whole Blood 157 mg/dL (75-99)
--- NOTE | 2017-03-12 14:40 | P.PN ---
Subjective Progress Note Date: 03/12/17 Principal diagnosis: Chest pain This is a 41-year-old gentleman with known history of coronary artery disease and multiple stent placements, most recent stent was placed in December of this year at [facility], he underwent stenting of the left circumflex at that time, patient also had prior stenting of the LAD. History of severe ischemic cardiomyopathy with prior AICD, hypertension, diabetes, hyperlipidemia , sleep apnea, prior TIA, GERD. 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 He presents to the hospital on this occasion with symptoms of burning sensation in his chest which she states feels like heartburn. He had his initial symptoms yesterday morning, he has no sublingual nitroglycerin so he took a baby aspirin. Later in the evening he again developed symptoms and again took aspirin this time with no relief, so for this reason he came to the emergency room for further evaluation. Patient also states for further past 2 or 3 days he's been having frequent diarrhea stools. EKG on admission here reveals a paced rhythm with minimal ST depression in the inferior leads. Chest x-ray does not reveal any active cardiopulmonary disease. Hemoglobin 12.3, platelet count 217, sodium 131, potassium 4.9, BUN 35, creatinine 3.2. mag level I.5, troponin 0.034. At the time of my examination this morning, patient denies any further chest discomfort. Patient does have a brace to his right lower extremity, he says that he fell approximately one month ago and was recently told to have an ankle fracture.\ 03/11/2017 Patient seen and examined this morning, creatinine down to 1.5 today, potassium 5.6. Patient denies any further chest discomfort. He is complaining of some mild lower back discomfort today. Troponin 0.034, 0.103, 0.084. Hemodynamically stable. 03/12/2017 Patient seen and examined this morning, denies any further chest pain. Patient had an episode last night which appeared to be a possible seizure and neurology was consulted.CAT scan of the brain did not reveal any intracranial hemorrhage mass effect or midline shift. Objective - Vital Signs Vital signs: Vital Signs Temp 97.6 F 03/12/17 08:40 Pulse 75 03/12/17 12:20 Resp 16 03/12/17 12:20 BP 103/66 03/12/17 12:20 Pulse Ox 97 03/12/17 12:20 Intake & Output 03/11/17 03/12/17 03/12/17 18:59 06:59 18:59 Intake Total 1040 1770 Balance 1040 1770 Weight 113.6 kg 115.4 kg Intake: IV 600 1320 Sodium Chloride 0.9% 1, 600 1320 000 ml @ 75 mls/hr IV . [id number] JAKE Rx#:[id number] Intake, IV Titration 200 450 Amount Magnesium Sulfate-D5w Pmx 200 1 gm In Dextrose/Water 1 100ml.bag @ 100 mls/hr IVPB Q1H JAKE Rx#: [id number] Sodium Chloride 0.9% 1, 450 000 ml @ 75 mls/hr IV . [id number] JAKE Rx#:[id number] Oral 240 Other: Voiding Method Urinal Urinal Urinal # Voids 2 2 # Bowel Movements 1 - Exam PHYSICAL EXAMINATION: HEENT: Head is atraumatic, normocephalic. Pupils equal, round. Neck is supple. There is no elevated jugular venous pressure. HEART EXAMINATION: [Heart S1, S2 normal. No murmur or gallop heard.] CHEST EXAMINATION:[ Lungs are clear to auscultation and precussion. No chest wall tenderness is noted on palpation or with deep breathing.] ABDOMEN: [ Soft, nontender. Bowel sounds are heard. No organomegaly noted]. EXTREMITIES:[ 2+ peripheral pulses with no evidence of peripheral edema and no calf tenderness noted]. NEUROLOGIC [patient is awake, alert and oriented -3.] . - Labs CBC & Chem 7: 03/10/17 02:30 03/12/17 05:56 Labs: Abnormal Lab Results - Last 24 Hours (Table) 03/11/17 03/11/17 03/11/17 Range/Units 15:28 16:19 17:09 Sodium (137-145) mmol/L Potassium 5.7 H (3.5-5.1) mmol/L BUN (9-20) mg/dL Creatinine (0.66-1.25) mg/dL Glucose (74-99) mg/dL POC Glucose (mg/dL) 198 H 228 H (75-99) mg/dL 03/11/17 03/11/17 03/11/17 Range/Units 18:19 20:26 22:06 Sodium (137-145) mmol/L Potassium 5.5 H (3.5-5.1) mmol/L BUN (9-20) mg/dL Creatinine (0.66-1.25) mg/dL Glucose (74-99) mg/dL POC Glucose (mg/dL) 142 H 62 L (75-99) mg/dL 03/12/17 03/12/17 03/12/17 Range/Units 05:42 05:56 11:52 Sodium 134 L (137-145) mmol/L Potassium (3.5-5.1) mmol/L BUN 33 H (9-20) mg/dL Creatinine 1.44 H (0.66-1.25) mg/dL Glucose 187 H (74-99) mg/dL POC Glucose (mg/dL) 196 H 157 H (75-99) mg/dL Assessment and Plan Plan: Assessment and plan #1 symptoms of chest discomfort which the patient describes as heartburn sensation, his usual angina is more in the form of chest pressure. Possible acute coronary syndrome. EKG shows a paced rhythm with inferior ST depression. #2 known history of coronary artery disease with prior multiple stent placements , most recently patient underwent a stenting of the circumflex in [place] in December of this year, on Effient and aspirin. #3 acute renal failure, creatinine 3.2. Patient states he's been having frequent diarrhea stools for the past 2-3 days #4 ischemic cardio myopathy with prior AICD implant #5 hypomagnesemia #6 hypertension #7 hyperlipidemia #8 prior TIA #9 GERD #10 sleep apnea #11 recent right ankle fracture Plan From cardiology's perspective, we'll continue the patient on his current medications. he may be able to be discharged once cleared by neurology and his primary care doctor. He's been advised to follow-up with his professor of music in [place] post discharge. DNP note has been reviewed, I agree with a documented findings and plan of care. Patient was seen and examined.
[2017-03-12 17:04] LABS: Glucose,Whole Blood 172 mg/dL (75-99)
--- NOTE | 2017-03-12 17:49 | P.PN ---
Progress Note - Text Progress Note Date: 03/12/17 DATE OF SERVICE: 03/12/2017 PRESENTING COMPLAINT: Chest pain HISTORY OF PRESENT ILLNESS: 41-year-old male who developed chest pressure that came and went around 11:30 depression became more severe burning in nature started radiating to his arms and neck, no shortness of breath no dizziness no perspiration came for further evaluation. Has an extensive coronary artery disease history. INTERVAL HISTORY: 03/12/2017: Patient lying in bed appears comfortable, no further episodes of chest pain, gentle hydration continues, KWABENA inhibitor to be held. Cardiology has nothing further to add at the present time.yesterday evening patient had a small what appeared to be seizure-like episode, began shaking eyes rolled back into his head lasted about 15-30 seconds, sent for computed tomography scan which was negative for any acute stroke or hemorrhage. Neurology consulted EEG pending. right ankle remains in a brace, prior to admission patient had a right ankle fracture. 03/11/2017: Patient lying in bed appears comfortable, no further episodes of chest pain, echocardiogram pending, will get 2 more sets of troponins, increase Imdur, repeat EKG. patient sustained a right ankle fracture prior to admission patient has a brace for this. He is tolerating his diet, ambulatory within the room. REVIEW OF SYSTEMS: Done for constitutional ,cardiovascular, GI, pulmonary with relevant findings as above. CURRENT MEDICATIONS Aspirin 81 mg by mouth daily, Neurontin 400 mg by mouth 3 times a day, Amaryl 4 mg by mouth before meals twice a day, Apresoline 25 mg by mouth twice a day, Imdur 60 mg by mouth daily, Cogentin 5 mg by mouth at bedtime, lisinopril 5 mg by mouth daily, Imodium 2 mg by mouth 3 times a day, Glucophage 1000 mg before meals twice a day, metoprolol 50 mg by mouth twice a day, rosuvastatin calcium 40 mg by mouth at bedtime, Protonix 40 mg by mouth at bedtime, Effient 10 mg by mouth daily, Mysoline 100 mg by mouth at bedtime, Ranexa 1000 mg by mouth twice a day, Zoloft 200 mg by mouth daily. PHYSICAL EXAM VITAL SIGNS: temperature 97.6, pulse 80, respiratory rate 16, blood pressure 124/67, oxygen saturation 94% on room air. GENERAL APPEARANCE: Lying in bed, anxious appearing EYES: Pupils equal. Conjunctiva normal. NECK: JVD not raised. Mass not palpable. RESPIRATORY: Respiratory effort normal. Lungs clear to auscultation. CARDIOVASCULAR: First and second sounds normal. No edema. ABDOMEN: Soft. Liver and spleen not palpable. No tenderness. No mass palpable. PSYCHIATRY: Alert and oriented x3. Mood and affect anxious appearing. INVESTIGATIONS: Sodium 134, potassium 5.0, BUN 33, creatinine 1.44. ASSESSMENT: -Acute coronary syndrome in a patient with known coronary artery disease. -Chronic congestive heart failure from systolic dysfunction EF 40-45% from underlying coronary artery disease. -Coronary artery disease with prior history of stent. -Diabetes mellitus type 2, chronically on insulin. -Gastroesophageal reflux disease. -Hyperlipidemia. -Essential hypertension. -Obstructive sleep apnea. -Diabetes mellitus type 2 causing peripheral neuropathy. -Chronic gastritis. -Depression not otherwise specified. -Primary osteoarthritis multiple joints, bilateral. -Morbid obesity, BMI greater than 40. -Acute renal failure probably acute tubular necrosis, slowly improving -Hyperkalemia, resolved -right ankle fracture with a brace PLAN: Renal function improving, continue gentle hydration continue to hold Kwabena inhibitors. EEG pending, await additional input from neurology. Plan discussed with patient the bedside he is in agreement. Continue to follow closely. CATH LAB MANAGER statement: Patient was seen and examined by nurse practitioner Jana Guzmán and all elements of the case discussed with attending Dr. Chiu
[2017-03-12] MEDS: PANTOPRAZOLE 40 MG TABLET PO SCH (19:40)
[2017-03-12] MEDS: LINAGLIPTIN 5 MG TABLET PO SCH (19:40)
[2017-03-12] MEDS: PRIMIDONE 50 MG TAB PO SCH (19:40)
[2017-03-12] MEDS: Rosuvastatin Calcium 40 MG PO SCH (19:41)
[2017-03-12 20:30] LABS: Glucose,Whole Blood 147 mg/dL (75-99)
--- NOTE | 2017-03-12 22:11 | EEG ---
ELECTROENCEPHALOGRAM REPORT DATE OF EE03/12/2017. REFERRING PHYSICIAN: Dr. Chiu. CONSULTING AND INTERPRETING PHYSICIAN: Dr. Mario Joyce. INDICATION FOR EXAMINATION: This patient is a 41-year-old male being evaluated for new onset seizure-like activity. AGE: 41. EEG FINDINGS: A routine 21-channel awake digital EEG recording was accomplished utilizing the 10-20 international system with bipolar and referential montages. The background activity in the most alert resting state consists of a low to medium amplitude, fairly well- developed and well-sustained 7-8 Hz activity over the posterior head regions. Some. This posterior rhythm attenuates to eye opening. There is a small amount of low amplitude 18-20 Hz beta activity seen maximally over the anterior head regions. Muscle and movement artifact was observed on a few occasions during the tracing. Toward the mid portion of the tracing, the patient does dripped into spontaneous drowsiness. No epileptiform discharges were seen. IMPRESSION: This EEG is within normal limits for the patient's age. The EEG failed to reveal any focal, lateralized or epileptiform abnormalities. Clinical correlation is recommended. MMODL / IJN: [id number] /
--- NOTE | 2017-03-12 22:26 | PN ---
PROGRESS NOTE DATE OF SERVICE: 03/12/2017. ATTENDING NOTE: This patient was seen and examined by me. I discussed with my nurse practitioner, Ms. Guzmán. This patient has known coronary artery disease, presented with chest pain. No further intervention per Cardiology. Last night, the patient had episode which could be described as seizure-like activity. The eyes rolled back, patient shaking a bit. CT scan of the brain was negative. Neurology has added an EEG. The patient otherwise feels back to his normal self. EXAMINATION: Afebrile, pulse 80, respirations 16, blood pressure 120/67, pulse ox 94% on room air. Lying in bed, comfortable. LUNGS: Clear. CARDIOVASCULAR: 1st and 2nd sounds normal. INVESTIGATIONS: Creatinine is 1.44. ASSESSMENT: 1. Acute coronary syndrome. 2. Acute renal failure, probably acute tubular necrosis, slowly improving. 3. Possible new onset seizure activity. PLAN: EEG is pending. Renal function is improving. Care was discussed with the patient. Patient has been informed about no driving for at least 6 months. The patient is getting IV fluids at 50 mL/h. ROWAN inhibitor is still being held. MMODL / IJN: [id number] /
[2017-03-12] MEDS: NITROGLYCERIN SL TABS 0.4 MG TAB SUBLINGUAL PRN (23:48)
[2017-03-13] MEDS: NITROGLYCERIN SL TABS 0.4 MG TAB SUBLINGUAL PRN (00:04)
--- NOTE | 2017-03-13 00:25 | P.PN ---
Subjective Progress Note Date: 03/12/17 This patient is a 41 year old male who is being evaluated for possible seizure disorder. The patient was able to complete a routine EEG today. We did review the EEG and it is normal for his age. There was no evidence of any epileptiform discharges. He did undergo a computed tomography scan of the brain yesterday evening which came back negative for any evidence of acute stroke or hemorrhage. The patient is being treated for coronary artery disease. He has a history of having multiple stent placements. He has a history of severe ischemic cardiomyopathy and cardiology is continuing to follow him closely. Patient states he is feeling better today. He has not had any further episodes of confusion or unresponsiveness. We did review the results of his EEG today with the patient in detail. Patient is awaiting possible discharge tomorrow morning to home. He is to follow-up with his central control room operator at [facility]. We will continue close neurological follow-up with this patient during this admission. Objective - Vital Signs Vital signs: Vital Signs Temp 97.6 F 03/12/17 08:40 Pulse 75 03/12/17 12:20 Resp 16 03/12/17 12:20 BP 103/66 03/12/17 12:20 Pulse Ox 97 03/12/17 12:20 Intake & Output 03/11/17 03/12/17 03/12/17 18:59 06:59 18:59 Intake Total 1040 1770 Output Total 300 Balance 1040 1770 -300 Weight 113.6 kg 115.4 kg Intake: IV 600 1320 Sodium Chloride 0.9% 1, 600 1320 000 ml @ 50 mls/hr IV . Q20H JAKE Rx#:[id number] Intake, IV Titration 200 450 Amount Magnesium Sulfate-D5w Pmx 200 1 gm In Dextrose/Water 1 100ml.bag @ 100 mls/hr IVPB Q1H JAKE Rx#: [id number] Sodium Chloride 0.9% 1, 450 000 ml @ 50 mls/hr IV . Q20H JAKE Rx#:[id number] Oral 240 Output: Urine 300 Other: Voiding Method Urinal Urinal Urinal # Voids 2 2 # Bowel Movements 1 0 - Exam Physical examination: PHYSICAL EXAMINATION: Patient is resting comfortably in bed. VITAL SIGNS: Blood pressure is [119/58]. Heart rate is [77]. Respiration is [16] . Temperature is [97.3]. HEENT: Head is atraumatic, neck is supple, there were no carotid bruits. CHEST: Lungs are clear to auscultation and percussion. CARDIAC: S1, S2 normal rate and rhythm. There is no murmur. ABDOMEN: Soft and nontender. Bowel sounds are present. EXTREMITIES: There is no pedal edema. Peripheral pulses are present. Neurological examination: Patient has a nonfocal neurological examination that is unchanged from yesterday. - Labs CBC & Chem 7: 03/10/17 02:30 03/12/17 05:56 Labs: Abnormal Lab Results - Last 24 Hours (Table) 03/11/17 03/11/17 03/11/17 Range/Units 16:19 17:09 18:19 Sodium (137-145) mmol/L Potassium 5.7 H 5.5 H (3.5-5.1) mmol/L BUN (9-20) mg/dL Creatinine (0.66-1.25) mg/dL Glucose (74-99) mg/dL POC Glucose (mg/dL) 228 H (75-99) mg/dL 03/11/17 03/11/17 03/12/17 Range/Units 20:26 22:06 05:42 Sodium (137-145) mmol/L Potassium (3.5-5.1) mmol/L BUN (9-20) mg/dL Creatinine (0.66-1.25) mg/dL Glucose (74-99) mg/dL POC Glucose (mg/dL) 142 H 62 L 196 H (75-99) mg/dL 03/12/17 03/12/17 Range/Units 05:56 11:52 Sodium 134 L (137-145) mmol/L Potassium (3.5-5.1) mmol/L BUN 33 H (9-20) mg/dL Creatinine 1.44 H (0.66-1.25) mg/dL Glucose 187 H (74-99) mg/dL POC Glucose (mg/dL) 157 H (75-99) mg/dL Assessment and Plan (1) Syncope, cardiogenic Current Visit: Yes Status: Acute SNOMED Code(s): 499067586 (2) Acute encephalopathy Current Visit: Yes Status: Acute SNOMED Code(s): 4970557 (3) Cardiomyopathy Current Visit: No Status: Acute SNOMED Code(s): 13424816 (4) History of implantable cardioverter-defibrillator (ICD) placement Current Visit: No Status: Acute SNOMED Code(s): 138363406 Plan: This patient is a 41-year-old male who was initially admitted to hospital with acute angina and chest pain. He is being followed closely by cardiology. He does have a pacemaker defibrillator placement. Patient was coming along well until 8 PM this evening when he had an episode of unresponsiveness. This was witnessed by his . She describes him as having a seizure-like event with eyes rolled back and shaking. Patient was confused right after the event. He underwent a computed tomography scan of the brain which was negative for any acute changes. We are recommending routine EEG to be done today to rule out seizure focus. His overall prognosis at this time remains guarded. Patient has no previous history of head trauma or seizures in the past. We will continue close neurological follow-up this patient during this admission. His overall prognosis at this time remains guarded. He was advised of the [place] driving law which states he should not drive for greater than 6 months following his last syncopal episode and/or seizure. Patient did undergo routine EEG today. The EEG was reviewed and is normal for his age with no evidence of any epileptiform discharges. Patient does have history of severe ischemic cardiomyopathy. He is to follow-up with his central control room operator aFbio Aguilar soon after discharge. We will continue close neurological follow-up for this patient during this admission. His overall prognosis at this time remains guarded.
[2017-03-13 04:24] VITALS: RESP 20; TEMP 97.2
[2017-03-13 06:14] LABS: Glucose,Whole Blood 124 mg/dL (75-99)
[2017-03-13] MEDS: INSULIN LISPRO (humaLOG) 300 UNIT/3 ML VIAL SQ SCH ×2 (06:24→11:46)
[2017-03-13] MEDS: metFORMIN 500 MG TAB PO SCH (06:30)
[2017-03-13] MEDS: GLIMEPIRIDE 4 MG TAB PO SCH (06:31)
[2017-03-13 08:11] LABS: Anion Gap 9 mmol/L; Blood Urea Nitrogen 24 mg/dL (9-20); Calcium 8.7 mg/dL (8.4-10.2); Carbon Dioxide 20 mmol/L (22-30); Chloride 109 mmol/L (98-107); Glucose 115 mg/dL (74-99); Non-African American GFR(MDRD) >60 (>60 ml/min/1.73 sqM); Potassium 5.3 mmol/L (3.5-5.1); Sodium 138 mmol/L (137-145)
[2017-03-13] MEDS: GABAPENTIN 400 MG CAP PO SCH (08:26)
[2017-03-13] MEDS: ASPIRIN 81 MG PO SCH (08:26)
[2017-03-13] MEDS: CHOLECALCIFEROL 1,000 UNIT TAB PO SCH (08:26)
[2017-03-13] MEDS: hydrALAZINE HCL 25 MG TAB PO SCH ×2 (08:27→08:40)
[2017-03-13] MEDS: RANOLAZINE 500 MG TAB.ER.12H PO SCH (08:28)
[2017-03-13] MEDS: LOPERAMIDE 2 MG CAP PO SCH (08:28)
[2017-03-13] MEDS: ISOSORBIDE MONONITRATE ER 60 MG TAB.ER.24H PO SCH (08:28)
[2017-03-13] MEDS: SERTRALINE 100 MG TAB PO SCH (08:28)
[2017-03-13] MEDS: PRASUGREL 10 MG TAB PO SCH (08:28)
[2017-03-13] MEDS: METOPROLOL TARTRATE 50 MG TAB PO SCH (08:28)
[2017-03-13 11:30] VITALS: BP 118/55; PULSE 74
[2017-03-13 11:50] LABS: Glucose,Whole Blood 119 mg/dL (75-99)
[2017-03-13] MEDS ORDERED: SODIUM BICARBONATE TAB 650 MG TAB PO SCH (12:45)
--- NOTE | 2017-03-13 12:57 | P.PN ---
Subjective Patient is seen in follow for acute kidney injury. Creatinine was 3.1 admission and is down to 1.24 today. Patient presented with chest pain which is now resolved. Diuretics are held and is currently maintained on normal saline at 50 mL an hour. He had a seizure-like episode Thursday evening and EEG was noted to be benign. Currently awake and alert. Oral intake is good. Urine output is good. Vital signs are stable. General: The patient appeared well nourished and normally developed. HEENT: Head exam is unremarkable. Neck is without jugular venous distension. LUNGS: Lungs are clear to auscultation and percussion. Breath sounds decreased. HEART: Rate and Rhythm are regular. First and second heart sounds normal. No murmurs, rubs or gallops. ABDOMEN: Abdominal exam reveals normal bowel sounds. Non-tender and non- distended. No evidence of peritonitis. EXTREMITITES: No clubbing, cyanosis, or edema. Objective - Vital Signs Vital signs: Vital Signs Temp 97.2 F L 03/13/17 04:00 Pulse 74 03/13/17 11:28 Resp 20 03/13/17 11:28 BP 118/55 03/13/17 11:28 Pulse Ox 95 03/13/17 11:28 Intake & Output 03/12/17 03/13/17 03/13/17 18:59 06:59 18:59 Intake Total 240 480 Output Total 300 Balance -60 480 Weight 113.5 kg Intake: Oral 240 480 Output: Urine 300 Other: Voiding Method Urinal Urinal # Voids 1 1 2 # Bowel Movements 0 0 - Labs CBC & Chem 7: 03/10/17 02:30 03/13/17 06:20 Labs: Abnormal Lab Results - Last 24 Hours (Table) 03/12/17 03/12/17 03/13/17 Range/Units 16:43 20:28 06:06 Potassium (3.5-5.1) mmol/L Chloride (98-107) mmol/L Carbon Dioxide (22-30) mmol/L BUN (9-20) mg/dL Glucose (74-99) mg/dL POC Glucose (mg/dL) 172 H 147 H 124 H (75-99) mg/dL 03/13/17 03/13/17 Range/Units 06:20 11:46 Potassium 5.3 H (3.5-5.1) mmol/L Chloride 109 H (98-107) mmol/L Carbon Dioxide 20 L (22-30) mmol/L BUN 24 H (9-20) mg/dL Glucose 115 H (74-99) mg/dL POC Glucose (mg/dL) 119 H (75-99) mg/dL Assessment and Plan Plan: Assessment: #1. Nonoliguric acute kidney injury mostly prerenal secondary to poor oral intake and diarrhea. Patient was also taking lisinopril which is currently held. He was also taking metformin. Patient admits to taking a diuretic as well but is unsure of the dose. I don't see Lasix and his home medications however. Renal function is improving. Creatinine was 3.1 admission and is down to 1.24 today. Urinalysis is quite benign. #2. Chest pain which has resolved now. He does have significant history of coronary artery disease with multiple interventions in the past. Cardiology following. #3. Mild hyperkalemia secondary to acute kidney injury as well as metabolic acidosis. #4. Systolic CHF with ejection fraction of 40-45%. Compensated. #5. Diabetes mellitus. #6. Episode of unresponsiveness with concern of seizure. EEG negative for seizure activity. Neurology following. #7. Non-anion gap metabolic acidosis secondary to IV fluids. Expect improvements after normal saline is discontinued. Plan: Hep-Lock IV fluids. Maintain low potassium diet. Continue to hold lisinopril for now. I have also added sodium bicarbonate which he can continue for now. Potential discharge today. He will need to follow-up as an outpatient in the next 2-3 weeks.
--- NOTE | 2017-03-13 15:31 | P.DS ---
Providers Date of admission: 03/10/17 03:48 Expected date of discharge: 03/13/17 Attending physician: Elvin Chiu Consults: 03/10/17 03:48 Consult Physician Urgent Consulting Provider: [facility] Consult Reason/Comments: Unstable angina Do you want consulting provider notified?: Yes 03/10/17 19:17 Consult Physician Routine Consulting Provider: Jovan Dangelo Consult Reason/Comments: arf Do you want consulting provider notified?: Yes 03/11/17 20:40 Consult Physician Stat Consulting Provider: Mario Joyce Consult Reason/Comments: altered mental status Do you want consulting provider notified?: Yes Primary care physician: [facility] Course: FINAL DIAGNOSES: -Acute coronary syndrome in a patient with known coronary artery disease. -Chronic congestive heart failure from systolic dysfunction EF 40-45% from underlying coronary artery disease. -Coronary artery disease with prior history of stent. -Diabetes mellitus type 2, chronically on insulin. -Gastroesophageal reflux disease. -Hyperlipidemia. -Essential hypertension. -Obstructive sleep apnea. -Diabetes mellitus type 2 causing peripheral neuropathy. -Chronic gastritis. -Depression not otherwise specified. -Primary osteoarthritis multiple joints, bilateral. -Morbid obesity, BMI greater than 40. -Acute renal failure probably acute tubular necrosis -Hyperkalemia, resolved -Possible new onset seizure activity -right ankle fracture with a brace HOSPTIAL COURSE: 41-year-old male who developed chest pressure that came and went and became more severe burning in nature came in for further evaluation has extensive coronary artery disease history. Admitted for acute coronary syndrome. I values revealed elevated creatinine, baseline is at 1 current lab values were 3.21 on admission. Home medications reordered, IV fluids initiated, cardiology consulted, nephrology consulted. Cardiology evaluated the patient Troponins ordered 3 echocardiogram with Doppler study, ROWAN inhibitor held. Imdur increased. Patient's symptoms subsided. Troponins negative. No further interventions from cardiology required. Nephrology saw the patient, placed diuretics and ROWAN inhibitor and metformin on hold initiated gentle hydration. Continue on a low potassium diet, lisinopril remains on hold, sodium bicarbonate to be continued. Creatinine improved. Patient seen by neurology for an episode of seizure-like activity computed tomography scan of the head negative, EEG also negative. No further episodes of seizure activity witnessed or reported. Tolerating his diet, ambulatory within the room with his brace on his right ankle for fracture sustained prior to admission, no further episodes of chest pain or seizure-like activity condition improved and patient is stable for discharge. PHYSICAL EXAM: CARDIOVASCULAR: First and second sounds noted no edema RESPIRATORY: Respiratory effort normal lung sounds diminished bilaterally MUSKULOSKELETAL: Right ankle maintained an orthopedic boot for fracture sustained prior to admission PSYCHIATRY: Alert and oriented 3 mood and affect appropriate for situation. Patient was seen and examined by nurse practitioner Jana Guzmán in all elements of the case discussed with attending Dr. Chiu DISPOSITION: Discharge home to the care of his family. Patient Condition at Discharge: Stable Plan - Discharge Summary Discharge Rx Participant: Yes New Discharge Prescriptions: New Isosorbide Mononitrate ER [Imdur] 60 mg PO DAILY #30 tab.er.24h Continue Nitroglycerin Sl Tabs [Nitrostat] 0.4 mg SUBLINGUAL Q5M PRN PRN Reason: Chest Pain metFORMIN HCL 1,000 mg PO BID Omeprazole [PriLOSEC] 40 mg PO HS Glimepiride 4 mg PO BID Dulaglutide [Trulicity] 1.5 mg SQ OROZCO Rosuvastatin Calcium 40 mg PO HS Ranolazine [Ranexa] 1,000 mg PO BID Primidone [Mysoline] 100 mg PO HS Prasugrel [Effient] 10 mg PO DAILY tab Metoprolol Tartrate 50 mg PO BID Loperamide [Imodium] 2 mg PO TID Cholecalciferol (Vitamin D3) [Vitamin D3] 2,000 unit PO DAILY Linagliptin [Tradjenta] 5 mg PO HS Sertraline HCl [Zoloft] 200 mg PO DAILY #28 ARIPiprazole [ARIPiprazole Odt] 15 mg PO HS Albuterol Inhaler [Ventolin Hfa Inhaler] 2 puff INHALATION RT-QID PRN PRN Reason: Shortness Of Breath Gabapentin [Neurontin] 400 mg PO TID hydrALAZINE HCL [Apresoline] 25 mg PO BID #60 tab traMADol HCl [Ultram] 50 mg PO Q8H PRN #30 tab PRN Reason: pain Changed Aspirin EC [Ecotrin Low Dose] 81 mg PO BID #0 Discontinued Lisinopril [Zestril] 5 mg PO DAILY #30 tab Isosorbide Mononitrate ER [Imdur] 30 mg PO DAILY #30 tab Discharge Medication List Nitroglycerin Sl Tabs [Nitrostat] 0.4 mg SUBLINGUAL Q5M PRN 10/13/13 [History] metFORMIN HCL 1,000 mg PO BID 07/03/15 [History] Omeprazole [PriLOSEC] 40 mg PO HS 08/13/15 [History] Dulaglutide [Trulicity] 1.5 mg SQ OROZCO 03/10/16 [History] Glimepiride 4 mg PO BID 03/10/16 [History] Rosuvastatin Calcium 40 mg PO HS 05/05/16 [History] Ranolazine [Ranexa] 1,000 mg PO BID 06/09/16 [History] Primidone [Mysoline] 100 mg PO HS 06/30/16 [History] Prasugrel [Effient] 10 mg PO DAILY tab 07/01/16 [Rx] Loperamide [Imodium] 2 mg PO TID 10/20/16 [History] Metoprolol Tartrate 50 mg PO BID 10/20/16 [History] Cholecalciferol (Vitamin D3) [Vitamin D3] 2,000 unit PO DAILY 11/07/16 [History] Linagliptin [Tradjenta] 5 mg PO HS 12/19/16 [History] Sertraline HCl [Zoloft] 200 mg PO DAILY #28 01/27/17 [Rx] ARIPiprazole [ARIPiprazole Odt] 15 mg PO HS 02/14/17 [History] Albuterol Inhaler [Ventolin Hfa Inhaler] 2 puff INHALATION RT-QID PRN 02/14/17 [ History] Gabapentin [Neurontin] 400 mg PO TID 02/24/17 [History] hydrALAZINE HCL [Apresoline] 25 mg PO BID #60 tab 02/26/17 [Rx] traMADol HCl [Ultram] 50 mg PO Q8H PRN #30 tab 02/26/17 [Rx] Aspirin EC [Ecotrin Low Dose] 81 mg PO BID #0 03/13/17 [Rx] Isosorbide Mononitrate ER [Imdur] 60 mg PO DAILY #30 tab.er.24h 03/13/17 [Rx] Follow up Appointment(s)/Referral(s): Mario Joyce MD [STAFF PHYSICIAN] - 1 Week Junie New MD [Primary Care Provider] - 1-2 days Jovan Dangelo DO [STAFF PHYSICIAN] - 2 Weeks Percy Alcaraz MD [STAFF PHYSICIAN] - 1 Week Ambulatory/Diagnostic Orders: Basic Metabolic Panel [LAB.AMB] Location: Determined By Patient Patient Instructions/Handouts: Type 2 Diabetes in Adults (DC), Acute Coronary Syndrome (DC) Activity/Diet/Wound Care/Special Instructions: Continue to hold Lisinopril & follow up with Dr Dangelo. low potassium diet also
--- NOTE | 2017-03-13 17:36 | DS ---
DISCHARGE SUMMARY DATE OF SERVICE: 03/13/17 ATTENDING NOTE: This patient was seen and examined by me. I discussed with my nurse practitioner, Ms. Guzmán. This is a patient with known coronary artery disease. Multiple medical problems. Presented again with chest pain. Seen by Cardiology. Nitrates were added. The patient had an episode of what clinically may have been a seizure activity though the EEG was negative. The patient advised not to drive for at least 6 months until cleared by Neurology. The patient also had acute renal failure. The patient's creatinine was 3.2 on admission. Did drop down to 1.24 by the time of discharge. Care was discussed with the patient. EXAMINATION: Lungs fair entry. Cardiovascular first and second sounds normal. Follow up as arranged. MMODL / IJN: [id number] /
[2017-03-15] MEDS ORDERED: Dulaglutide [Trulicity] 1.5 MG SQ SCH (12:00)
== END 2017-03-13 15:41 | disposition home or self-care (01) | DRG 682 ==
LOC: EC 01:46 → 6SEL 03:48
PROVIDERS: ADMIT Hospitalist; ATTEND Hospitalist
DX: N17.0 Acute kidney failure with tubular necrosis (principal); G93.40 Encephalopathy, unspecified; E87.2 Acidosis; I50.22 Chronic systolic (congestive) heart failure; I11.0 Hypertensive heart disease with heart failure; I25.110 Atherosclerotic heart disease of native coronary artery with unstable angina pectoris; E83.42 Hypomagnesemia; E11.42 Type 2 diabetes mellitus with diabetic polyneuropathy; K21.9 Gastro-esophageal reflux disease without esophagitis; E78.5 Hyperlipidemia, unspecified; G47.33 Obstructive sleep apnea (adult) (pediatric); K29.50 Unspecified chronic gastritis without bleeding; F32.9 Major depressive disorder, single episode, unspecified; E66.01 Morbid (severe) obesity due to excess calories; M19.91 Primary osteoarthritis, unspecified site; F43.10 Post-traumatic stress disorder, unspecified; E87.5 Hyperkalemia; S82.891A Other fracture of right lower leg, initial encounter for closed fracture; R19.7 Diarrhea, unspecified; I25.5 Ischemic cardiomyopathy; J45.909 Unspecified asthma, uncomplicated; Z91.5 Personal history of self-harm; Z95.810 Presence of automatic (implantable) cardiac defibrillator; Z86.39 Personal history of other endocrine, nutritional and metabolic disease; Z90.49 Acquired absence of other specified parts of digestive tract; Z87.19 Personal history of other diseases of the digestive system; Z88.8 Allergy status to other drugs, medicaments and biological substances; Z87.11 Personal history of peptic ulcer disease; Z88.6 Allergy status to analgesic agent; Z79.4 Long term (current) use of insulin; Z95.5 Presence of coronary angioplasty implant and graft; Z88.1 Allergy status to other antibiotic agents; Z91.041 Radiographic dye allergy status; Z88.0 Allergy status to penicillin; Z91.013 Allergy to seafood; Z79.82 Long term (current) use of aspirin; Z79.899 Other long term (current) drug therapy; Z83.3 Family history of diabetes mellitus; Z82.49 Family history of ischemic heart disease and other diseases of the circulatory system; Z82.0 Family history of epilepsy and other diseases of the nervous system; Z86.73 Personal history of transient ischemic attack (TIA), and cerebral infarction without residual deficits; Z86.14 Personal history of Methicillin resistant Staphylococcus aureus infection; Z90.79 Acquired absence of other genital organ(s); T50.995A Adverse effect of other drugs, medicaments and biological substances, initial encounter; M54.5 Low back pain; G89.29 Other chronic pain
CPT/HCPCS: 36415; 70450; 71020; 80048; 80053; 80061; 81003; 82550; 82553; 83036; 83735; 84132; 84484; 85025; 85610; 85730; 93005; 93306; 95819; 99291

== ENCOUNTER 2017-03-30 03:58 | Observation (INO) | payer MEDICARE, OTHER ==
[2017-03-30] MEDS ORDERED: NITROGLYCERIN OINT 1 INCH/GM PACKET TOPICAL STA (04:17)
[2017-03-30] MEDS ORDERED: ASPIRIN 81 MG PO STA (04:17)
--- NOTE | 2017-03-30 04:20 | ED ---
General Adult HPI - General Chief complaint: Chest Pain Stated complaint: chest pressure Time Seen by Provider: 03/30/17 04:00 Source: patient, RN notes reviewed Mode of arrival: ambulatory Limitations: no limitations - History of Present Illness Initial comments: This is a 41-year-old male who has a past medical history significant for diabetes high blood pressure and multiple cardiac stents as well as defibrillator. Patient comes in tonight because she's had a 2 day history of back pain which she states radiates to the front of his chest. Patient denies any palpitations. Patient denies any diaphoresis. Patient denies any nausea. Patient states she took nitroglycerin at home did not have any effect. Patient states she tried baclofen for muscle relaxation had no effect. Patient states she took Maalox for high blood pressure and it had no effect. He states the pain does not get worse with movement. And he states it's been constant since it started a couple days ago. He did mention his troponin is always mildly elevated. Patient denies any abdominal pain. Patient denies any vomiting diarrhea. Patient denies a fever chills or cough. Patient denies headache patient denies numbness weakness. - Related Data Home Medications Medication Instructions Recorded Confirmed Nitroglycerin Sl Tabs [Nitrostat] 0.4 mg SUBLINGUAL Q5M PRN 10/13/13 03/30/17 metFORMIN HCL 1,000 mg PO BID 07/03/15 03/30/17 Omeprazole [PriLOSEC] 40 mg PO HS 08/13/15 03/30/17 Dulaglutide [Trulicity] 1.5 mg SQ OROZCO 03/10/16 03/30/17 Glimepiride 4 mg PO BID 03/10/16 03/30/17 Rosuvastatin Calcium 40 mg PO HS 05/05/16 03/30/17 Ranolazine [Ranexa] 1,000 mg PO BID 06/09/16 03/30/17 Primidone [Mysoline] 100 mg PO HS 06/30/16 03/30/17 Loperamide [Imodium] 2 mg PO TID 10/20/16 03/30/17 Metoprolol Tartrate 50 mg PO BID 10/20/16 03/30/17 Cholecalciferol (Vitamin D3) 2,000 unit PO DAILY 11/07/16 03/30/17 [Vitamin D3] Linagliptin [Tradjenta] 5 mg PO HS 12/19/16 03/30/17 ARIPiprazole [ARIPiprazole Odt] 15 mg PO HS 02/14/17 03/30/17 Albuterol Inhaler [Ventolin Hfa 2 puff INHALATION RT-QID PRN 02/14/17 03/30/17 Inhaler] Gabapentin [Neurontin] 400 mg PO TID 02/24/17 03/30/17 Previous Rx's Medication Instructions Recorded Prasugrel [Effient] 10 mg PO DAILY tab 07/01/16 Sertraline HCl [Zoloft] 200 mg PO DAILY #28 01/27/17 hydrALAZINE HCL [Apresoline] 25 mg PO BID #60 tab 02/26/17 traMADol HCl [Ultram] 50 mg PO Q8H PRN #30 tab 02/26/17 Aspirin EC [Ecotrin Low Dose] 81 mg PO BID #0 03/13/17 Isosorbide Mononitrate ER [Imdur] 60 mg PO DAILY #30 tab.er.24h 03/13/17 Allergies Allergy/AdvReac Type Severity Reaction Status Date / Time erythromycin base Allergy Severe Swelling Verified 03/30/17 04:04 [Erythromycin Base] codeine Allergy Unknown Swelling Verified 03/30/17 04:04 meclizine Allergy Unknown Unknown Verified 03/30/17 04:04 Penicillins Allergy Unknown Rash/Hives Verified 03/30/17 04:04 shellfish derived Allergy Unknown Anaphylaxis Verified 03/30/17 04:04 Fish Containing Products Allergy Anaphylaxis Verified 03/30/17 04:04 [Fish] Iodinated Contrast- Oral and Allergy Anaphylaxis Verified 03/30/17 04:04 IV Dye cephalexin monohydrate AdvReac Unknown Nausea & Verified 03/30/17 04:04 [From Keflex] Vomiting naproxen AdvReac Unknown Compromises Verified 03/30/17 04:04 Kidney Function atorvastatin calcium AdvReac Myalgia Verified 03/30/17 04:04 [From Lipitor] hydrocodone [From [place]] AdvReac Rapid Verified 03/30/17 04:04 Heart Rate Review of Systems ROS Statement: Those systems with pertinent positive or pertinent negative responses have been documented in the HPI. ROS Other: All systems not noted in ROS Statement are negative. Past Medical History Past Medical History: Asthma, Coronary Artery Disease (CAD), Chest Pain / Angina , Heart Failure, CVA/TIA, Diabetes Mellitus, GERD/Reflux, Hyperlipidemia, Hypertension, Myocardial Infarction ([place]), Osteoarthritis (OA), Pneumonia, Skin Disorder, Sleep Apnea/CPAP/BIPAP Additional Past Medical History / Comment(s): Coronary artery disease with multiple vessel disease, ischemic cardiomyopathy, diabetic neuropathy bilateral hands and feet, hypertensive cardiovascular disease, chronic gastritis, current R ankle fracture, disc disease, chronic back pain, depression with hx of suicide attempts, GASTROPARESIS, PSORIASES,NIDDM type II, UTI, migraines, TIA , PUD, hiatal hernia, L rotator cuff tear, bronchitis, pseudoaneurysm L groin post procedure. Last Myocardial Infarction Date:: 06/03/16 per pt. History of Any Multi-Drug Resistant Organisms: MRSA Date of last positivie culture/infection: 06/09/16 MDRO Source:: face Past Surgical History: AICD, Appendectomy, Cholecystectomy, Heart Catheterization With Stent, Hernia Repair Additional Past Surgical History / Comment(s): Pt has had multiple cardiac procedures-caths/PTCA/stenting with last stent place 2 weeks ago at [facility]-Jan. 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 Past Anesthesia/Blood Transfusion Reactions: No Reported Reaction Additional Past Anesthesia/Blood Transfusion Reaction / Comment(s): . Date of Last Stent Placement:: 12/23/16 Type of Cardiac Device: Biventricular Pacemaker, AICD Device Placement Date:: 09/19/15 Past Psychological History: Anxiety, Depression, PTSD Smoking Status: Never smoker Past Alcohol Use History: None Reported Past Drug Use History: None Reported - Past Family History Mother Family Medical History: Coronary Artery Disease (CAD), Myocardial Infarction ([place] ) Additional Family Medical History / Comment(s): 7 [place] and faulty heart valve. Pt does not know the age when mother had her MIs. Father History Unknown: Yes Additional Family Medical History / Comment(s): Does not know who father is Brother(s) Family Medical History: Congestive Heart Failure (CHF), Myocardial Infarction ( [place]) Additional Family Medical History / Comment(s): Parkinsons. Pt does not know at what age his brother had a OK Patient has Family Medical History: No Reported History Additional Family Medical History / Comment(s): There is a strong family history for heart disease, hypertension, and diabetes. General Exam - General Exam Comments Initial Comments: GENERAL: Patient is well-developed and well-nourished. Patient is nontoxic and well- hydrated and is in mild distress. ENT: Neck is soft and supple. No significant lymphadenopathy is noted. Oropharynx is clear. Moist mucous membranes. Neck has full range of motion without eliciting any pain. EYES: The sclera were anicteric and conjunctiva were pink and moist. Extraocular movements were intact and pupils were equal round and reactive to light. Eyelids were unremarkable. PULMONARY: Unlabored respirations. Good breath sounds bilaterally. No audible rales rhonchi or wheezing was noted. CARDIOVASCULAR: There is a regular rate and rhythm without any murmurs gallops or rubs. ABDOMEN: Soft and nontender with normal bowel sounds. No palpable organomegaly was noted. There is no palpable pulsatile mass. SKIN: Skin is clear with no lesions or rashes and otherwise unremarkable. NEUROLOGIC: Patient is alert and oriented x3. Cranial nerves II through XII are grossly intact. Motor and sensory are also intact. Normal speech, volume and content. Symmetrical smile. MUSCULOSKELETAL: Normal extremities with adequate strength and full range of motion. No lower extremity swelling or edema. No calf tenderness. Patient has a brace on the right ankle PSYCHIATRIC: Normal psychiatric evaluation. Normal interpersonal interactions appears functionally intact in deals appropriately with others. No signs of depression. No signs of anxiety. Limitations: no limitations Course Vital Signs 03/30/17 04:01 Temperature 99.5 F Pulse Rate 101 H Respiratory 17 Rate Blood Pressure 120/61 O2 Sat by Pulse 99 Oximetry Medical Decision Making - Medical Decision Making EKG shows a paced rhythm at 93 bpm MI interval is on a 48 QRSs 116 QT interval 374 QTC is 465. Patient's EKG shows no ST segment elevation or depression or T wave abnormalities are noted Chest x-ray shows no acute abnormality. - Lab Data Result diagrams: 03/30/17 04:27 03/30/17 04:27 Lab Results 03/30/17 03/30/17 03/30/17 Range/Units 04:27 04:27 04:27 WBC 6.0 (3.8-10.6) k/uL RBC 4.61 (4.30-5.90) m/uL Hgb 12.2 L (13.0-17.5) gm/dL Hct 38.0 L (39.0-53.0) % MCV 82.5 (80.0-100.0) fL MCH 26.6 (25.0-35.0) pg MCHC 32.2 (31.0-37.0) g/dL RDW 14.5 (11.5-15.5) % Plt Count 236 (150-450) k/uL Neutrophils % 56 % Lymphocytes % 33 % Monocytes % 6 % Eosinophils % 3 % Basophils % 1 % Neutrophils # 3.4 (1.3-7.7) k/uL Lymphocytes # 2.0 (1.0-4.8) k/uL Monocytes # 0.3 (0-1.0) k/uL Eosinophils # 0.2 (0-0.7) k/uL Basophils # 0.0 (0-0.2) k/uL Hypochromasia Slight PT (9.0-12.0) sec INR (<1.2) APTT (22.0-30.0) sec Sodium 133 L (137-145) mmol/L Potassium 4.9 (3.5-5.1) mmol/L Chloride 101 (98-107) mmol/L Carbon Dioxide 21 L (22-30) mmol/L Anion Gap 11 mmol/L BUN 25 H (9-20) mg/dL Creatinine 1.30 H (0.66-1.25) mg/dL Est GFR (MDRD) Af Amer >60 (>60 ml/min/1.73 sqM) Est GFR (MDRD) Non-Af >60 (>60 ml/min/1.73 sqM) Glucose 229 H (74-99) mg/dL Calcium 10.0 (8.4-10.2) mg/dL Magnesium 1.3 L (1.6-2.3) mg/dL Total Bilirubin 0.3 (0.2-1.3) mg/dL AST 17 (17-59) U/L ALT 26 (21-72) U/L Alkaline Phosphatase 90 (38-126) U/L Total Creatine Kinase 49 L (55-170) U/L CK-MB (CK-2) 1.2 (0.0-2.4) ng/mL CK-MB (CK-2) Rel Index 2.4 Troponin I <0.012 (0.000-0.034) ng/mL Total Protein 5.9 L (6.3-8.2) g/dL Albumin 3.5 (3.5-5.0) g/dL 03/30/17 Range/Units 04:27 WBC (3.8-10.6) k/uL RBC (4.30-5.90) m/uL Hgb (13.0-17.5) gm/dL Hct (39.0-53.0) % MCV (80.0-100.0) fL MCH (25.0-35.0) pg MCHC (31.0-37.0) g/dL RDW (11.5-15.5) % Plt Count (150-450) k/uL Neutrophils % % Lymphocytes % % Monocytes % % Eosinophils % % Basophils % % Neutrophils # (1.3-7.7) k/uL Lymphocytes # (1.0-4.8) k/uL Monocytes # (0-1.0) k/uL Eosinophils # (0-0.7) k/uL Basophils # (0-0.2) k/uL Hypochromasia PT 9.8 (9.0-12.0) sec INR 1.0 (<1.2) APTT 21.4 L (22.0-30.0) sec Sodium (137-145) mmol/L Potassium (3.5-5.1) mmol/L Chloride (98-107) mmol/L Carbon Dioxide (22-30) mmol/L Anion Gap mmol/L BUN (9-20) mg/dL Creatinine (0.66-1.25) mg/dL Est GFR (MDRD) Af Amer (>60 ml/min/1.73 sqM) Est GFR (MDRD) Non-Af (>60 ml/min/1.73 sqM) Glucose (74-99) mg/dL Calcium (8.4-10.2) mg/dL Magnesium (1.6-2.3) mg/dL Total Bilirubin (0.2-1.3) mg/dL AST (17-59) U/L ALT (21-72) U/L Alkaline Phosphatase (38-126) U/L Total Creatine Kinase (55-170) U/L CK-MB (CK-2) (0.0-2.4) ng/mL CK-MB (CK-2) Rel Index Troponin I (0.000-0.034) ng/mL Total Protein (6.3-8.2) g/dL Albumin (3.5-5.0) g/dL Disposition Clinical Impression: Chest pain Disposition: ADMITTED IP TO THIS HOSP Referrals: Junie New MD [Primary Care Provider] - 1-2 days Time of Disposition: 05:43
[2017-03-30 04:47] LABS: Basophils % (A) 1 %; CH 26.4; CHCM 32.1; Eosinophils # (A) 0.2 k/uL (0-0.7); Eosinophils % (A) 3 %; HDW 2.97; HGB 12.2 gm/dL (13.0-17.5); Hypochromasia Slight; Luc % (Auto) 2; Lymphocytes % (A) 33 %; MCH 26.6 pg (25.0-35.0); MCHC 32.2 g/dL (31.0-37.0); MCV 82.5 fL (80.0-100.0); Mean Platelet Volume 7.4; Monocytes # (A) 0.3 k/uL (0-1.0); Monocytes % (A) 6 %; Neutrophils # (A) 3.4 k/uL (1.3-7.7); Neutrophils % (A) 56 %; RBC 4.61 m/uL (4.30-5.90); RDW 14.5 % (11.5-15.5); WBC (Perox) 6.12
[2017-03-30 04:55] LABS: Prothrombin Time 9.8 sec (9.0-12.0)
[2017-03-30 05:05] LABS: ALT 26 U/L (21-72); AST 17 U/L (17-59); Alkaline Phosphatase 90 U/L (38-126); Anion Gap 11 mmol/L; Blood Urea Nitrogen 25 mg/dL (9-20); Carbon Dioxide 21 mmol/L (22-30); Chloride 101 mmol/L (98-107); Glucose 229 mg/dL (74-99); Magnesium 1.3 mg/dL (1.6-2.3); Non-African American GFR(MDRD) >60 (>60 ml/min/1.73 sqM); Potassium 4.9 mmol/L (3.5-5.1); Sodium 133 mmol/L (137-145); Total Bilirubin 0.3 mg/dL (0.2-1.3); Total Protein 5.9 g/dL (6.3-8.2)
[2017-03-30 05:08] LABS: Creatine Kinase 49 U/L (55-170)
--- NOTE | 2017-03-30 05:19 | XR ---
PROCEDURE: FILM CXR 2 VIEWS HISTORY: 41-year-old male with chest pain. COMPARISON: None TECHNIQUE: Frontal and lateral views of the chest were obtained. FINDINGS: Cardiomediastinal silhouette is within normal limits. Three-lead pacemaker-defibrillator, similar to prior. No evidence of focal consolidation, pleural effusion, or pneumothorax. Bones are unremarkable for age. IMPRESSION: Three-lead pacemaker-defibrillator, similar to prior. Otherwise, unremarkable two-view chest.
[2017-03-30 05:20] LABS: Creatine Kinase MB 1.2 ng/mL (0.0-2.4); Troponin I <0.012 ng/mL (0.000-0.034)
[2017-03-30 05:41] LABS: Partial Thromboplastin Time 21.4 sec (22.0-30.0)
[2017-03-30] MEDS ORDERED: NITROGLYCERIN SL TABS 0.4 MG TAB SUBLINGUAL PRN (05:44)
[2017-03-30 07:58] VITALS: RESP 18
[2017-03-30] MEDS ORDERED: traMADol 50 MG TAB PO PRN (08:57)
[2017-03-30] MEDS ORDERED: ALBUTEROL NEBULIZED 2.5 MG/3 ML INHALATION PRN (08:57)
[2017-03-30] MEDS ORDERED: ASPIRIN 81 MG PO SCH (09:00)
[2017-03-30] MEDS ORDERED: hydrALAZINE HCL 25 MG TAB PO SCH (09:00)
[2017-03-30] MEDS ORDERED: SERTRALINE 100 MG TAB PO SCH (09:00)
[2017-03-30] MEDS ORDERED: METOPROLOL TARTRATE 50 MG TAB PO SCH (09:00)
[2017-03-30] MEDS ORDERED: PRASUGREL 10 MG TAB PO SCH (09:00)
[2017-03-30] MEDS ORDERED: ISOSORBIDE MONONITRATE ER 60 MG TAB.ER.24H PO SCH (09:00)
[2017-03-30] MEDS ORDERED: CHOLECALCIFEROL 1,000 UNIT TAB PO SCH (09:00)
[2017-03-30] MEDS ORDERED: GLIMEPIRIDE 4 MG TAB PO SCH (09:00)
[2017-03-30] MEDS ORDERED: RANOLAZINE 500 MG TAB.ER.12H PO SCH (09:00)
[2017-03-30] MEDS: LOPERAMIDE 2 MG CAP PO SCH ×2 (10:55→17:01)
[2017-03-30] MEDS: GABAPENTIN 400 MG CAP PO SCH ×2 (10:58→17:00)
[2017-03-30 11:44] LABS: Creatine Kinase 38 U/L (55-170)
[2017-03-30 11:55] LABS: Troponin I <0.012 ng/mL (0.000-0.034)
[2017-03-30 12:10] LABS: Glucose,Whole Blood 191 mg/dL (75-99)
[2017-03-30] MEDS: INSULIN LISPRO (humaLOG) 300 UNIT/3 ML VIAL SQ SCH ×2 (13:05→18:12)
[2017-03-30] MEDS: NITROGLYCERIN OINT 1 INCH/GM PACKET TOPICAL SCH ×2 (13:10→18:14)
--- NOTE | 2017-03-30 13:25 | P.HPIM ---
History of Present Illness H&P Date: 03/30/17 Chief Complaint: Chest pain Is a 41-year-old male with a known history of coronary artery disease with history of multiple stents, ischemic cardio myopathy status post AICD placement , hypertension, DM type II and multiple other medical problems came to the hospital with the complaints of chest pain. Patient initially felt back pain between his shoulder blades that radiates to the anterior chest, bandlike and after that radiated up to the anterior chest wall area and patient felt like burning sensation. Patient does have nausea no associated vomiting. No complaints of headache or dizziness. Apparently patient has been constant for the past 2 days. Denied any nausea vomiting denied any abdominal pain now. No fever no chills. No cough or sputum production. Denied any recent illnesses. Patient had recent cardiac catheterization few months back at outside hospital with circumflex stent placement. Patient does have significant family history of coronary artery disease. Troponin 2 negative Chest x-ray showed no echocardiogram process EKG showed paced rhythm Review of Systems Constitutional: Patient denies any fever or chills . No generalized weakness or weight loss. Abdomen: Patient denied nausea vomiting and diarrhea and abdominal pain. Cardiovascular: chest Pressure. no shortness of breath no palpitations. Respiratory: patient denied any cough is from production. No shortness of breath Neurologic: Patient denied any numbness or tingling headache. Musculoskeletal: Patient denies any complaints of joint swelling or deformity. Skin: Negative Psychiatric: Negative Endocrine: No heat or cold intolerance. No recent weight gain. Genitourinary: No dysuria or hematuria. All other 14 point ROS negative except the above Past Medical History Past Medical History: Asthma, Coronary Artery Disease (CAD), Chest Pain / Angina , Heart Failure, CVA/TIA, Diabetes Mellitus, GERD/Reflux, Hyperlipidemia, Hypertension, Myocardial Infarction ([place]), Osteoarthritis (OA), Pneumonia, Skin Disorder, Sleep Apnea/CPAP/BIPAP Additional Past Medical History / Comment(s): Coronary artery disease with multiple vessel disease, ischemic cardiomyopathy, diabetic neuropathy bilateral hands and feet, hypertensive cardiovascular disease, chronic gastritis, current R ankle fracture, disc disease, chronic back pain, depression with hx of suicide attempts, GASTROPARESIS, PSORIASES,NIDDM type II, UTI, migraines, TIA , PUD, hiatal hernia, L rotator cuff tear, bronchitis, pseudoaneurysm L groin post procedure. Last Myocardial Infarction Date:: 06/03/16 per pt. History of Any Multi-Drug Resistant Organisms: MRSA Date of last positivie culture/infection: 06/09/16 MDRO Source:: face Past Surgical History: AICD, Appendectomy, Cholecystectomy, Heart Catheterization With Stent, Hernia Repair Additional Past Surgical History / Comment(s): Pt has had multiple cardiac procedures-caths/PTCA/stenting with last stent place 2 weeks ago at [facility]-Jan. 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 Past Anesthesia/Blood Transfusion Reactions: No Reported Reaction Additional Past Anesthesia/Blood Transfusion Reaction / Comment(s): . Date of Last Stent Placement:: 12/23/16 Type of Cardiac Device: Biventricular Pacemaker, AICD Device Placement Date:: 09/19/15 Past Psychological History: Anxiety, Depression, PTSD Smoking Status: Never smoker Past Alcohol Use History: None Reported Past Drug Use History: None Reported - Past Family History Mother Family Medical History: Coronary Artery Disease (CAD), Myocardial Infarction ([place] ) Additional Family Medical History / Comment(s): 7 [place] and faulty heart valve. Pt does not know the age when mother had her MIs. Father History Unknown: Yes Additional Family Medical History / Comment(s): Does not know who father is Brother(s) Family Medical History: Congestive Heart Failure (CHF), Myocardial Infarction ( [place]) Additional Family Medical History / Comment(s): Parkinsons. Pt does not know at what age his brother had a VA Patient has Family Medical History: No Reported History Additional Family Medical History / Comment(s): There is a strong family history for heart disease, hypertension, and diabetes. Medications and Allergies Home Medications and Allergies Comment(s): PHYSICAL EXAMINATION: Patient is lying in the bed comfortably, no acute distress, awake alert and oriented.. HEENT: Normocephalic. Neck is supple. Pupils reactive. Nostrils clear. Oral cavity is moist. Ears reveal no drainage. Neck reveals no JVD, carotid bruits, or thyromegaly. CHEST EXAMINATION: Trachea is central. Symmetrical expansion. Lung hendrix clear to auscultation and percussion. CARDIAC: Normal S1, S2 with no gallops. No murmurs ABDOMEN: Soft. Bowel sounds normal. No organomegaly. No abdominal bruits. Extremities: reveal no edema. No clubbing or cyanosis Neurologically awake, alert, oriented x3 with well-coordinated movements. No focal deficits noted Skin: No rash or skin lesions. Psychiatric: Cooperative. Nonsuicidal Musculoskeletal: No joint swelling or deformity. Normal range of motion. Home Medications Medication Instructions Recorded Confirmed Type Nitroglycerin Sl Tabs [Nitrostat] 0.4 mg SUBLINGUAL Q5M PRN 10/13/13 03/30/17 History metFORMIN HCL 1,000 mg PO BID 07/03/15 03/30/17 History Omeprazole [PriLOSEC] 40 mg PO HS 08/13/15 03/30/17 History Dulaglutide [Trulicity] 1.5 mg SQ OROZCO 03/10/16 03/30/17 History Glimepiride 4 mg PO BID 03/10/16 03/30/17 History Rosuvastatin Calcium 40 mg PO HS 05/05/16 03/30/17 History Ranolazine [Ranexa] 1,000 mg PO BID 06/09/16 03/30/17 History Primidone [Mysoline] 100 mg PO HS 06/30/16 03/30/17 History Prasugrel [Effient] 10 mg PO DAILY tab 07/01/16 03/30/17 Rx Loperamide [Imodium] 2 mg PO TID 10/20/16 03/30/17 History Metoprolol Tartrate 50 mg PO BID 10/20/16 03/30/17 History Cholecalciferol (Vitamin D3) 2,000 unit PO DAILY 11/07/16 03/30/17 History [Vitamin D3] Linagliptin [Tradjenta] 5 mg PO HS 12/19/16 03/30/17 History Sertraline HCl [Zoloft] 200 mg PO DAILY #28 01/27/17 03/30/17 Rx ARIPiprazole [ARIPiprazole Odt] 15 mg PO HS 02/14/17 03/30/17 History Albuterol Inhaler [Ventolin Hfa 2 puff INHALATION RT-QID PRN 02/14/17 03/30/17 History Inhaler] Gabapentin [Neurontin] 400 mg PO TID 02/24/17 03/30/17 History hydrALAZINE HCL [Apresoline] 25 mg PO BID #60 tab 02/26/17 03/30/17 Rx traMADol HCl [Ultram] 50 mg PO Q8H PRN #30 tab 02/26/17 03/30/17 Rx Aspirin EC [Ecotrin Low Dose] 81 mg PO BID #0 03/13/17 03/30/17 Rx Isosorbide Mononitrate ER [Imdur] 60 mg PO DAILY #30 tab.er.24h 03/13/17 Rx Allergies Allergy/AdvReac Type Severity Reaction Status Date / Time erythromycin base Allergy Severe Swelling Verified 03/30/17 06:42 [Erythromycin Base] codeine Allergy Unknown Swelling Verified 03/30/17 06:42 meclizine Allergy Unknown Unknown Verified 03/30/17 06:42 Penicillins Allergy Unknown Rash/Hives Verified 03/30/17 06:42 shellfish derived Allergy Unknown Anaphylaxis Verified 03/30/17 06:42 Fish Containing Products Allergy Anaphylaxis Verified 03/30/17 06:42 [Fish] Iodinated Contrast- Oral and Allergy Anaphylaxis Verified 03/30/17 06:42 IV Dye cephalexin monohydrate AdvReac Unknown Nausea & Verified 03/30/17 06:42 [From Keflex] Vomiting naproxen AdvReac Unknown Compromises Verified 03/30/17 06:42 Kidney Function atorvastatin calcium AdvReac Myalgia Verified 03/30/17 06:42 [From Lipitor] hydrocodone [From [place]] AdvReac Rapid Verified 03/30/17 06:42 Heart Rate Physical Exam Vitals: Vital Signs Temp Pulse Pulse Resp BP BP Pulse Ox 03/30/17 11:12 91 18 124/72 99 03/30/17 09:22 97.7 F 79 18 127/70 99 03/30/17 07:57 76 18 105/62 98 03/30/17 06:34 79 16 111/59 98 03/30/17 05:46 85 16 107/58 98 03/30/17 04:01 99.5 F 101 H 17 120/61 99 Intake and Output 03/29/17 03/30/17 03/30/17 22:59 06:59 14:59 Other: Voiding Method Toilet Weight 113.398 kg Results CBC & Chem 7: 03/30/17 04:27 03/30/17 04:27 Labs: Abnormal Lab Results - Last 24 Hours (Table) 03/30/17 03/30/17 03/30/17 Range/Units 04:27 04:27 04:27 Hgb 12.2 L (13.0-17.5) gm/dL Hct 38.0 L (39.0-53.0) % APTT (22.0-30.0) sec Sodium 133 L (137-145) mmol/L Carbon Dioxide 21 L (22-30) mmol/L BUN 25 H (9-20) mg/dL Creatinine 1.30 H (0.66-1.25) mg/dL Glucose 229 H (74-99) mg/dL POC Glucose (mg/dL) (75-99) mg/dL Magnesium 1.3 L (1.6-2.3) mg/dL Total Creatine Kinase 49 L (55-170) U/L Total Protein 5.9 L (6.3-8.2) g/dL 03/30/17 03/30/17 03/30/17 Range/Units 04:27 11:04 12:03 Hgb (13.0-17.5) gm/dL Hct (39.0-53.0) % APTT 21.4 L (22.0-30.0) sec Sodium (137-145) mmol/L Carbon Dioxide (22-30) mmol/L BUN (9-20) mg/dL Creatinine (0.66-1.25) mg/dL Glucose (74-99) mg/dL POC Glucose (mg/dL) 191 H (75-99) mg/dL Magnesium (1.6-2.3) mg/dL Total Creatine Kinase 38 L (55-170) U/L Total Protein (6.3-8.2) g/dL Thrombosis Risk Factor Assmnt - Choose All That Apply Any of the Below Risk Factors Present?: Yes Each Factor Represents 1 point: Age 41-60 years, Obesity (BMI >25) Other Risk Factors: No Other congenital or acquired thrombophilia - If yes, enter type in comment: No Thrombosis Risk Factor Assessment Total Risk Factor Score: 2 Thrombosis Risk Factor Assessment Level: Low Risk Assessment and Plan Assessment: #1 atypical chest pain in a patient with known history of coronary artery disease with recent stent placement. #2 coronary artery disease with history of multiple stent placement #3 ischemic cardiopathy ejection fraction 20% #4 status post AICD placement #5 history of CVA/TIA. No residual weakness. GERD Hyperlipidemia hypertension Obstructive sleep apnea on CPAP Osteoarthritis Depression and history of suicide attempts Chronic back pain Diabetes type 2 Diabetic gastroparesis and diabetic neuropathy History of migraine headaches History of pseudoaneurysm left groin postprocedure Plan: Patient will be continued on telemetry monitoring. Serial EKGs and troponins. Troponin 2 negative. Cardiology has been consulted. We will continue the home medications and further recommendations based on the clinical course. Time with Patient: Greater than 30
--- NOTE | 2017-03-30 13:53 | P.CRDCN ---
History of Present Illness Consult date: 03/30/17 History of present illness: This is a 41-year-old male patient with past medical history significant for CAD with recent stenting in December of the circumflex artery for in-stent restenosis, ischemic cardiomyopathy EF 40-45% with AICD placement, diabetes mellitus, hypertension, hyperlipidemia, gastroesophageal reflux disease, sleep apnea and TIA. He follows regularly with a sales project administrator out of [place], Dr. Peres. He presented to the hospital yesterday with complaints of upper back pain between the shoulder blades described as a heavy/tight feeling. He was tolerating the pain all day yesterday until it radiated around into his left chest. His pain is not associated with shortness of breath, dizziness, palpitations, nausea or vomiting. It is still present at the time of my examination and is not reproducible or associated with deep inspiration/cough. He was recently admitted last month for similar symptoms and is due to see his sales project administrator this week. During that admission imdur was increased to 60 mg daily. He states he is compliant with mediations as prescribed. EKG reveals atrial sensed ventricular paced rhythm with no acute ST changes from previous EKG's. Chest xray shows three lead pacemaker defibrillator with no acute cardiopulmonary process. Blood pressure 127/70 with heart rate 79. Current cardiac medications include hydralazine 25 mg twice a day, Ranexa 1000 mg twice a day, Effient 10 mg daily, metoprolol 50 mg twice a day, Imdur 60 mg daily, aspirin 81 mg twice a day. Review of Systems CONSTITUTIONAL: Denies fever. Denies chills. EYES: Denies blurred vision. Denies vision changes. Denies eye pain. EARS, NOSE, MOUTH & THROAT: Denies headache. Denies sore throat. Denies ear pain. CARDIOVASCULAR: Implant of ongoing chest comfort. Denies shortness of breath. Denies orthopnea. Denies PND. Denies palpitations. RESPIRATORY: Denies cough. GASTROINTESTINAL: Denies abdominal pain. Denies diarrhea. Denies constipation. Denies nausea. Denies vomitng. MUSCULOSKELETAL: Denies myalgias. INTEGUMENTARY: Denies pruitis. Denies rash. NEUROLOGIC: Denies numbness. Denies tingling. Denies weakness. PSYCHIATRIC: Denies anxiety. Denies depression. ENDOCRINE: Denies fatigue. Denies weight change. Denies polydipsia. Denies polyurina. GENITOURINARY: Denies burning, hematuria or urgency with micturation. HEMATOLOGIC: Denies history of anemia. Denies bleeding. Past Medical History Past Medical History: Asthma, Coronary Artery Disease (CAD), Chest Pain / Angina , Heart Failure, CVA/TIA, Diabetes Mellitus, GERD/Reflux, Hyperlipidemia, Hypertension, Myocardial Infarction ([place]), Osteoarthritis (OA), Pneumonia, Skin Disorder, Sleep Apnea/CPAP/BIPAP Additional Past Medical History / Comment(s): Coronary artery disease with multiple vessel disease, ischemic cardiomyopathy, diabetic neuropathy bilateral hands and feet, hypertensive cardiovascular disease, chronic gastritis, current R ankle fracture, disc disease, chronic back pain, depression with hx of suicide attempts, GASTROPARESIS, PSORIASES,NIDDM type II, UTI, migraines, TIA , PUD, hiatal hernia, L rotator cuff tear, bronchitis, pseudoaneurysm L groin post procedure. Last Myocardial Infarction Date:: 06/03/16 per pt. History of Any Multi-Drug Resistant Organisms: MRSA Date of last positivie culture/infection: 06/09/16 MDRO Source:: face Past Surgical History: AICD, Appendectomy, Cholecystectomy, Heart Catheterization With Stent, Hernia Repair Additional Past Surgical History / Comment(s): Pt has had multiple cardiac procedures-caths/PTCA/stenting with last stent place 2 weeks ago at [facility]-Sept. 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 Past Anesthesia/Blood Transfusion Reactions: No Reported Reaction Additional Past Anesthesia/Blood Transfusion Reaction / Comment(s): . Date of Last Stent Placement:: 12/23/16 Type of Cardiac Device: Biventricular Pacemaker, AICD Device Placement Date:: 09/19/15 Past Psychological History: Anxiety, Depression, PTSD Smoking Status: Never smoker Past Alcohol Use History: None Reported Past Drug Use History: None Reported - Past Family History Mother Family Medical History: Coronary Artery Disease (CAD), Myocardial Infarction ([place] ) Additional Family Medical History / Comment(s): 7 [place] and faulty heart valve. Pt does not know the age when mother had her MIs. Father History Unknown: Yes Additional Family Medical History / Comment(s): Does not know who father is Brother(s) Family Medical History: Congestive Heart Failure (CHF), Myocardial Infarction ( [place]) Additional Family Medical History / Comment(s): Parkinsons. Pt does not know at what age his brother had a [place] Patient has Family Medical History: No Reported History Additional Family Medical History / Comment(s): There is a strong family history for heart disease, hypertension, and diabetes. Medications and Allergies Home Medications Medication Instructions Recorded Confirmed Type Nitroglycerin Sl Tabs [Nitrostat] 0.4 mg SUBLINGUAL Q5M PRN 10/13/13 03/30/17 History metFORMIN HCL 1,000 mg PO BID 07/03/15 03/30/17 History Omeprazole [PriLOSEC] 40 mg PO HS 08/13/15 03/30/17 History Dulaglutide [Trulicity] 1.5 mg SQ OROZOC 03/10/16 03/30/17 History Glimepiride 4 mg PO BID 03/10/16 03/30/17 History Rosuvastatin Calcium 40 mg PO HS 05/05/16 03/30/17 History Ranolazine [Ranexa] 1,000 mg PO BID 06/09/16 03/30/17 History Primidone [Mysoline] 100 mg PO HS 06/30/16 03/30/17 History Prasugrel [Effient] 10 mg PO DAILY tab 07/01/16 03/30/17 Rx Loperamide [Imodium] 2 mg PO TID 10/20/16 03/30/17 History Metoprolol Tartrate 50 mg PO BID 10/20/16 03/30/17 History Cholecalciferol (Vitamin D3) 2,000 unit PO DAILY 11/07/16 03/30/17 History [Vitamin D3] Linagliptin [Tradjenta] 5 mg PO HS 12/19/16 03/30/17 History Sertraline HCl [Zoloft] 200 mg PO DAILY #28 01/27/17 03/30/17 Rx ARIPiprazole [ARIPiprazole Odt] 15 mg PO HS 02/14/17 03/30/17 History Albuterol Inhaler [Ventolin Hfa 2 puff INHALATION RT-QID PRN 02/14/17 03/30/17 History Inhaler] Gabapentin [Neurontin] 400 mg PO TID 02/24/17 03/30/17 History hydrALAZINE HCL [Apresoline] 25 mg PO BID #60 tab 02/26/17 03/30/17 Rx traMADol HCl [Ultram] 50 mg PO Q8H PRN #30 tab 02/26/17 03/30/17 Rx Aspirin EC [Ecotrin Low Dose] 81 mg PO BID #0 03/13/17 03/30/17 Rx Isosorbide Mononitrate ER [Imdur] 60 mg PO DAILY #30 tab.er.24h 03/13/17 Rx Allergies Allergy/AdvReac Type Severity Reaction Status Date / Time erythromycin base Allergy Severe Swelling Verified 03/30/17 06:42 [Erythromycin Base] codeine Allergy Unknown Swelling Verified 03/30/17 06:42 meclizine Allergy Unknown Unknown Verified 03/30/17 06:42 Penicillins Allergy Unknown Rash/Hives Verified 03/30/17 06:42 shellfish derived Allergy Unknown Anaphylaxis Verified 03/30/17 06:42 Fish Containing Products Allergy Anaphylaxis Verified 03/30/17 06:42 [Fish] Iodinated Contrast- Oral and Allergy Anaphylaxis Verified 03/30/17 06:42 IV Dye cephalexin monohydrate AdvReac Unknown Nausea & Verified 03/30/17 06:42 [From Keflex] Vomiting naproxen AdvReac Unknown Compromises Verified 03/30/17 06:42 Kidney Function atorvastatin calcium AdvReac Myalgia Verified 03/30/17 06:42 [From Lipitor] hydrocodone [From [place]] AdvReac Rapid Verified 03/30/17 06:42 Heart Rate Physical Exam Vitals: Vital Signs Temp Pulse Resp BP Pulse Ox 03/30/17 07:57 76 18 105/62 98 03/30/17 06:34 79 16 111/59 98 03/30/17 05:46 85 16 107/58 98 03/30/17 04:01 99.5 F 101 H 17 120/61 99 Intake and Output 03/29/17 03/30/17 03/30/17 22:59 06:59 14:59 Other: Weight 113.398 kg GENERAL: This is a 41-year-old male in no apparent distress at the time of my examination. Obese. HEENT: Head is atraumatic, normocephalic. Pupils are equal, round. Sclerae anicteric. Conjunctivae are clear. Mucous membranes of the mouth are moist. Neck is supple. There is no jugular venous distention. No carotid bruit is heard. LUNGS: Clear to auscultation no wheezes, rales or rhonchi. No chest wall tenderness is noted on palpation or with deep breathing. HEART: Regular rate and rhythm without murmurs, rubs or gallops. S1 and S2 heard. ABDOMEN: Soft, nontender. Bowel sounds are heard. No organomegaly noted. EXTREMITIES: Right leg in brace for broken ankle. No edema appreciated. NEUROLOGIC: Patient is awake, alert and oriented x3. Results 03/30/17 04:27 03/30/17 04:27 Cardiac Enzymes 03/30/17 03/30/17 Range/Units 04:27 04:27 AST 17 (17-59) U/L CK-MB (CK-2) 1.2 (0.0-2.4) ng/mL Troponin I <0.012 (0.000-0.034) ng/mL Coagulation 03/30/17 Range/Units 04:27 PT 9.8 (9.0-12.0) sec APTT 21.4 L (22.0-30.0) sec CBC 03/30/17 Range/Units 04:27 WBC 6.0 (3.8-10.6) k/uL RBC 4.61 (4.30-5.90) m/uL Hgb 12.2 L (13.0-17.5) gm/dL Hct 38.0 L (39.0-53.0) % Plt Count 236 (150-450) k/uL Comprehensive Metabolic Panel 03/30/17 Range/Units 04:27 Sodium 133 L (137-145) mmol/L Potassium 4.9 (3.5-5.1) mmol/L Chloride 101 (98-107) mmol/L Carbon Dioxide 21 L (22-30) mmol/L BUN 25 H (9-20) mg/dL Creatinine 1.30 H (0.66-1.25) mg/dL Glucose 229 H (74-99) mg/dL Calcium 10.0 (8.4-10.2) mg/dL AST 17 (17-59) U/L ALT 26 (21-72) U/L Alkaline Phosphatase 90 (38-126) U/L Total Protein 5.9 L (6.3-8.2) g/dL Albumin 3.5 (3.5-5.0) g/dL Current Medications Generic Name Dose Route Start Last Admin Trade Name Freq PRN Reason Stop Dose Admin Aspirin 325 mg 03/31/17 09:00 Aspirin PO DAILY JAKE Nitroglycerin 1 inch 03/30/17 12:00 Nitro-Bid Oint TOPICAL Q6HR [facility] Nitroglycerin 0.4 mg 03/30/17 05:44 Nitrostat SUBLINGUAL Q5M PRN Chest Pain Intake and Output 03/29/17 03/30/17 03/30/17 22:59 06:59 14:59 Other: Weight 113.398 kg 03/30/17 04:27 03/30/17 04:27 Assessment and Plan Assessment: ASSESSMENT 1. Back pain, atypical for angina 2. History of CAD 3. Hypertension 4. Hyperlipidemia 5. Ischemic cardiomyopathy with AICD placement 6. Diabetes mellitus 7. Gastroesophageal reflux disease PLAN Obtain records from his primary sales project administrator regarding recent stenting for review. Continue to obtain serial cardiac enzymes and EKGs to rule out an acute coronary event. If this is negative he is stable from a cardiac perspective. He is advised to follow up with his primary sales project administrator Dr. Peres. Thank you kindly for this consultation. Nurse Practitioner note has been reviewed, I agree with a documented findings and plan of care. Patient was seen and examined.
[2017-03-30 15:18] VITALS: BP 121/66; PULSE 76; TEMP 97.9
[2017-03-30 17:02] LABS: Glucose,Whole Blood 200 mg/dL (75-99)
[2017-03-30 18:09] LABS: Creatine Kinase 45 U/L (55-170)
[2017-03-30 18:22] LABS: Troponin I <0.012 ng/mL (0.000-0.034)
[2017-03-30] MEDS ORDERED: ROSUVASTATIN CALCIUM 40 MG PO SCH (21:00)
[2017-03-30] MEDS ORDERED: PRIMIDONE 50 MG TAB PO SCH (21:00)
[2017-03-30] MEDS ORDERED: PANTOPRAZOLE 40 MG TABLET PO SCH (21:00)
[2017-03-30] MEDS ORDERED: LINAGLIPTIN 5 MG TABLET PO SCH (21:00)
--- NOTE | 2017-03-31 00:14 | P.DS ---
Providers Date of admission: 03/30/17 05:44 Expected date of discharge: 03/30/17 Attending physician: Jose M Gallagher Consults: 03/30/17 05:44 Consult Physician Urgent Consulting Provider: [facility] Consult Reason/Comments: Chest pain Do you want consulting provider notified?: Yes Primary care physician: [facility] Hospital Course: Discharge diagnosis #1 atypical chest pain in a patient with known history of coronary artery disease with recent stent placement. ACS ruled out #2 coronary artery disease with history of multiple stent placement #3 ischemic cardiopathy ejection fraction 20% #4 status post AICD placement #5 history of CVA/TIA. No residual weakness. GERD Hyperlipidemia hypertension Obstructive sleep apnea on CPAP Osteoarthritis Depression and history of suicide attempts Chronic back pain Diabetes type 2 Diabetic gastroparesis and diabetic neuropathy History of migraine headaches History of pseudoaneurysm left groin postprocedure Hospital course Patient Is a 41-year-old male with a known history of coronary artery disease with history of multiple stents, ischemic cardio myopathy status post AICD placement, hypertension, DM type II and multiple other medical problems came to the hospital with the complaints of chest pain. Patient initially felt back pain between his shoulder blades that radiates to the anterior chest, bandlike and after that radiated up to the anterior chest wall area and patient felt like burning sensation. Patient does have nausea no associated vomiting. No complaints of headache or dizziness. Apparently patient has been constant for the past 2 days. Denied any nausea vomiting denied any abdominal pain now. No fever no chills. No cough or sputum production. Denied any recent illnesses. Patient had recent cardiac catheterization few months back at outside hospital with circumflex stent placement. Patient does have significant family history of coronary artery disease. Troponin 2 negative Chest x-ray showed no echocardiogram process EKG showed paced rhythm Patient was continued on telemetry monitoring. Serial EKGs and troponins 3 negative. Cardiology has been consulted. No further workup recommended this time patient was reported to follow with his speech language specialist as an outpatient. patient is chest pain-free now. Otherwise stable to be discharged home. Discharge physical examination was done Patient Condition at Discharge: Good Plan - Discharge Summary Discharge Rx Participant: No New Discharge Prescriptions: No Action Nitroglycerin Sl Tabs [Nitrostat] 0.4 mg SUBLINGUAL Q5M PRN PRN Reason: Chest Pain metFORMIN HCL 1,000 mg PO BID Omeprazole [PriLOSEC] 40 mg PO HS Glimepiride 4 mg PO BID Dulaglutide [Trulicity] 1.5 mg SQ OROZCO Rosuvastatin Calcium 40 mg PO HS Ranolazine [Ranexa] 1,000 mg PO BID Primidone [Mysoline] 100 mg PO HS Prasugrel [Effient] 10 mg PO DAILY tab Metoprolol Tartrate 50 mg PO BID Loperamide [Imodium] 2 mg PO TID Cholecalciferol (Vitamin D3) [Vitamin D3] 2,000 unit PO DAILY Linagliptin [Tradjenta] 5 mg PO HS Sertraline HCl [Zoloft] 200 mg PO DAILY #28 ARIPiprazole [ARIPiprazole Odt] 15 mg PO HS Albuterol Inhaler [Ventolin Hfa Inhaler] 2 puff INHALATION RT-QID PRN PRN Reason: Shortness Of Breath Gabapentin [Neurontin] 400 mg PO TID hydrALAZINE HCL [Apresoline] 25 mg PO BID #60 tab traMADol HCl [Ultram] 50 mg PO Q8H PRN #30 tab PRN Reason: pain Isosorbide Mononitrate ER [Imdur] 60 mg PO DAILY #30 tab.er.24h Aspirin EC [Ecotrin Low Dose] 81 mg PO BID #0 Discharge Medication List Nitroglycerin Sl Tabs [Nitrostat] 0.4 mg SUBLINGUAL Q5M PRN 10/13/13 [History] metFORMIN HCL 1,000 mg PO BID 07/03/15 [History] Omeprazole [PriLOSEC] 40 mg PO HS 08/13/15 [History] Dulaglutide [Trulicity] 1.5 mg SQ OROZCO 03/10/16 [History] Glimepiride 4 mg PO BID 03/10/16 [History] Rosuvastatin Calcium 40 mg PO HS 05/05/16 [History] Ranolazine [Ranexa] 1,000 mg PO BID 06/09/16 [History] Primidone [Mysoline] 100 mg PO HS 06/30/16 [History] Prasugrel [Effient] 10 mg PO DAILY tab 07/01/16 [Rx] Loperamide [Imodium] 2 mg PO TID 10/20/16 [History] Metoprolol Tartrate 50 mg PO BID 10/20/16 [History] Cholecalciferol (Vitamin D3) [Vitamin D3] 2,000 unit PO DAILY 11/07/16 [History] Linagliptin [Tradjenta] 5 mg PO HS 12/19/16 [History] Sertraline HCl [Zoloft] 200 mg PO DAILY #28 01/27/17 [Rx] ARIPiprazole [ARIPiprazole Odt] 15 mg PO HS 02/14/17 [History] Albuterol Inhaler [Ventolin Hfa Inhaler] 2 puff INHALATION RT-QID PRN 02/14/17 [ History] Gabapentin [Neurontin] 400 mg PO TID 02/24/17 [History] hydrALAZINE HCL [Apresoline] 25 mg PO BID #60 tab 02/26/17 [Rx] traMADol HCl [Ultram] 50 mg PO Q8H PRN #30 tab 02/26/17 [Rx] Aspirin EC [Ecotrin Low Dose] 81 mg PO BID #0 03/13/17 [Rx] Isosorbide Mononitrate ER [Imdur] 60 mg PO DAILY #30 tab.er.24h 03/13/17 [Rx] Follow up Appointment(s)/Referral(s): Junie New MD [Primary Care Provider] - 1-2 days Patient Instructions/Handouts: Chest Pain (GEN) Activity/Diet/Wound Care/Special Instructions: Patient has a follow up appointment with his speech language specialist next week. Discharge Disposition: HOME SELF-CARE
[2017-03-31] MEDS ORDERED: ASPIRIN 325 MG TAB PO SCH (09:00)
== END 2017-03-30 19:01 | disposition home or self-care (01) ==
LOC: EC 03:58 → 3OBS 05:44
PROVIDERS: ADMIT Internal Medicine; ATTEND Internal Medicine
DX: R07.89 Other chest pain (principal); I25.10 Atherosclerotic heart disease of native coronary artery without angina pectoris; R11.0 Nausea; Z95.5 Presence of coronary angioplasty implant and graft; I25.5 Ischemic cardiomyopathy; E78.5 Hyperlipidemia, unspecified; Z86.73 Personal history of transient ischemic attack (TIA), and cerebral infarction without residual deficits; G89.29 Other chronic pain; M54.9 Dorsalgia, unspecified; R74.8 Abnormal levels of other serum enzymes; J44.9 Chronic obstructive pulmonary disease, unspecified; K21.9 Gastro-esophageal reflux disease without esophagitis; I25.2 Old myocardial infarction; M19.90 Unspecified osteoarthritis, unspecified site; E11.40 Type 2 diabetes mellitus with diabetic neuropathy, unspecified; I11.0 Hypertensive heart disease with heart failure; I50.9 Heart failure, unspecified; E11.43 Type 2 diabetes mellitus with diabetic autonomic (poly)neuropathy; K31.84 Gastroparesis; G43.909 Migraine, unspecified, not intractable, without status migrainosus; F32.9 Major depressive disorder, single episode, unspecified; F43.10 Post-traumatic stress disorder, unspecified; F41.9 Anxiety disorder, unspecified; Z79.84 Long term (current) use of oral hypoglycemic drugs; Z79.899 Other long term (current) drug therapy; Z95.810 Presence of automatic (implantable) cardiac defibrillator; E66.9 Obesity, unspecified; Z68.41 Body mass index [BMI] 40.0-44.9, adult; G47.33 Obstructive sleep apnea (adult) (pediatric); Z88.8 Allergy status to other drugs, medicaments and biological substances; Z88.1 Allergy status to other antibiotic agents; Z88.5 Allergy status to narcotic agent; Z88.0 Allergy status to penicillin; Z91.041 Radiographic dye allergy status; Z91.013 Allergy to seafood; Z91.5 Personal history of self-harm; Z87.01 Personal history of pneumonia (recurrent); Z99.89 Dependence on other enabling machines and devices; Z87.11 Personal history of peptic ulcer disease; Z86.14 Personal history of Methicillin resistant Staphylococcus aureus infection; Z79.82 Long term (current) use of aspirin
CPT/HCPCS: 99285; 36415; 94760; 93005; 80053; 82550; 82553; 83735; 84484; 85025; 85610; 85730; 83036; 71020; G0378

== ENCOUNTER 2017-04-05 21:47 | Emergency (ER) | payer MEDICARE, OTHER ==
--- NOTE | 2017-04-05 22:52 | ED ---
General Adult HPI - General Chief complaint: Recheck/Abnormal Lab/Rx Stated complaint: Pacemaker Issue Time Seen by Provider: 04/05/17 22:39 Source: patient, RN notes reviewed, old records reviewed Mode of arrival: ambulatory Limitations: no limitations - History of Present Illness Initial comments: 41-year-old male history of hypertension, diabetes, coronary artery disease, and 2 year history of pacemaker placement presents for evaluation of pain over his pacemaker site. Patient also complains of some left shoulder pain. Pain is sharp in nature, worse with movement of the shoulder. Patient does have a sensation that his pacemaker is moving when he moves his left shoulder. He has been taking tramadol over the past week with minimal relief. Patient states his symptoms have been present for approximately one week, worse over the past 3 days. Denies fever or chills. Denies central chest pain. Denies difficulty breathing. Patient states this pain is not at all like his previous myocardial infarctions. Denies any specific trauma, however he does admit to lifting his niece a couple weeks ago. Also reports that he has not been driving, he's been riding as a passenger, and has been using his left arm to lift himself into vehicles. - Related Data Home Medications Medication Instructions Recorded Confirmed Nitroglycerin Sl Tabs [Nitrostat] 0.4 mg SUBLINGUAL Q5M PRN 10/13/13 03/30/17 metFORMIN HCL 1,000 mg PO BID 07/03/15 03/30/17 Omeprazole [PriLOSEC] 40 mg PO HS 08/13/15 03/30/17 Dulaglutide [Trulicity] 1.5 mg SQ OROZCO 03/10/16 03/30/17 Glimepiride 4 mg PO BID 03/10/16 03/30/17 Rosuvastatin Calcium 40 mg PO HS 05/05/16 03/30/17 Ranolazine [Ranexa] 1,000 mg PO BID 06/09/16 03/30/17 Primidone [Mysoline] 100 mg PO HS 06/30/16 03/30/17 Loperamide [Imodium] 2 mg PO TID 10/20/16 03/30/17 Metoprolol Tartrate 50 mg PO BID 10/20/16 03/30/17 Cholecalciferol (Vitamin D3) 2,000 unit PO DAILY 11/07/16 03/30/17 [Vitamin D3] Linagliptin [Tradjenta] 5 mg PO HS 12/19/16 03/30/17 ARIPiprazole [ARIPiprazole Odt] 15 mg PO HS 02/14/17 03/30/17 Albuterol Inhaler [Ventolin Hfa 2 puff INHALATION RT-QID PRN 02/14/17 03/30/17 Inhaler] Gabapentin [Neurontin] 400 mg PO TID 02/24/17 03/30/17 Previous Rx's Medication Instructions Recorded Prasugrel [Effient] 10 mg PO DAILY tab 07/01/16 Sertraline HCl [Zoloft] 200 mg PO DAILY #28 01/27/17 hydrALAZINE HCL [Apresoline] 25 mg PO BID #60 tab 02/26/17 traMADol HCl [Ultram] 50 mg PO Q8H PRN #30 tab 02/26/17 Aspirin EC [Ecotrin Low Dose] 81 mg PO BID #0 03/13/17 Isosorbide Mononitrate ER [Imdur] 60 mg PO DAILY #30 tab.er.24h 03/13/17 Allergies Allergy/AdvReac Type Severity Reaction Status Date / Time erythromycin base Allergy Severe Swelling Verified 04/05/17 21:58 [Erythromycin Base] codeine Allergy Unknown Swelling Verified 04/05/17 21:58 meclizine Allergy Unknown Unknown Verified 04/05/17 21:58 Penicillins Allergy Unknown Rash/Hives Verified 04/05/17 21:58 shellfish derived Allergy Unknown Anaphylaxis Verified 04/05/17 21:58 Fish Containing Products Allergy Anaphylaxis Verified 04/05/17 21:58 [Fish] Iodinated Contrast- Oral and Allergy Anaphylaxis Verified 04/05/17 21:58 IV Dye cephalexin monohydrate AdvReac Unknown Nausea & Verified 04/05/17 21:58 [From Keflex] Vomiting naproxen AdvReac Unknown Compromises Verified 04/05/17 21:58 Kidney Function atorvastatin calcium AdvReac Myalgia Verified 04/05/17 21:58 [From Lipitor] hydrocodone [From [place]] AdvReac Rapid Verified 04/05/17 21:58 Heart Rate Review of Systems ROS Statement: Those systems with pertinent positive or pertinent negative responses have been documented in the HPI. ROS Other: All systems not noted in ROS Statement are negative. Past Medical History Past Medical History: Asthma, Coronary Artery Disease (CAD), Chest Pain / Angina , Heart Failure, CVA/TIA, Diabetes Mellitus, GERD/Reflux, Hyperlipidemia, Hypertension, Myocardial Infarction (RI), Osteoarthritis (OA), Pneumonia, Skin Disorder, Sleep Apnea/CPAP/BIPAP Additional Past Medical History / Comment(s): Coronary artery disease with multiple vessel disease, ischemic cardiomyopathy, diabetic neuropathy bilateral hands and feet, hypertensive cardiovascular disease, chronic gastritis, current R ankle fracture, disc disease, chronic back pain, depression with hx of suicide attempts, GASTROPARESIS, PSORIASES,NIDDM type II, UTI, migraines, TIA , PUD, hiatal hernia, L rotator cuff tear, bronchitis, pseudoaneurysm L groin post procedure. Last Myocardial Infarction Date:: 06/03/16 per pt. History of Any Multi-Drug Resistant Organisms: MRSA Date of last positivie culture/infection: 06/09/16 MDRO Source:: face Past Surgical History: AICD, Appendectomy, Cholecystectomy, Heart Catheterization With Stent, Hernia Repair Additional Past Surgical History / Comment(s): Pt has had multiple cardiac procedures-caths/PTCA/stenting with last stent place 2 weeks ago at [facility]-Jan. 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 Past Anesthesia/Blood Transfusion Reactions: No Reported Reaction Additional Past Anesthesia/Blood Transfusion Reaction / Comment(s): . Date of Last Stent Placement:: 12/23/16 Type of Cardiac Device: Biventricular Pacemaker, AICD Device Placement Date:: 09/19/15 Past Psychological History: Anxiety, Depression, PTSD Smoking Status: Never smoker Past Alcohol Use History: None Reported Past Drug Use History: None Reported - Past Family History Mother Family Medical History: Coronary Artery Disease (CAD), Myocardial Infarction (RI ) Additional Family Medical History / Comment(s): 7 RI and faulty heart valve. Pt does not know the age when mother had her MIs. Father History Unknown: Yes Additional Family Medical History / Comment(s): Does not know who father is Brother(s) Family Medical History: Congestive Heart Failure (CHF), Myocardial Infarction ( RI) Additional Family Medical History / Comment(s): Parkinsons. Pt does not know at what age his brother had a RI Patient has Family Medical History: No Reported History Additional Family Medical History / Comment(s): There is a strong family history for heart disease, hypertension, and diabetes. General Exam Limitations: no limitations General appearance: alert, in no apparent distress Head exam: Present: atraumatic, normocephalic Eye exam: Present: normal appearance, PERRL ENT exam: Present: normal exam Neck exam: Present: normal inspection. Absent: tenderness, meningismus Respiratory exam: Present: normal lung sounds bilaterally, chest wall tenderness (Tenderness over the pacemaker site, no swelling, no erythema, no warmth). Absent: respiratory distress, wheezes Cardiovascular Exam: Present: regular rate, normal rhythm GI/Abdominal exam: Present: soft. Absent: distended, tenderness Extremities exam: Present: normal inspection, normal capillary refill, other ( Left upper extremity, 2+ radial pulse, no swelling, range of motion at the shoulder is within normal limits, there is mild pain with movement of the left shoulder.). Absent: pedal edema Neurological exam: Present: alert, oriented X3, CN II-XII intact. Absent: motor sensory deficit Psychiatric exam: Present: normal affect, normal mood Skin exam: Present: warm, dry, intact. Absent: cyanosis, diaphoretic Course Vital Signs 04/05/17 21:54 Temperature 98.3 F Pulse Rate 95 Respiratory 20 Rate Blood Pressure 172/88 O2 Sat by Pulse 97 Oximetry EKG Findings - EKG Comments: EKG Findings:: EKG shows atrial sensed ventricular paced rhythm, ventricular rate of 91, NC interval 154, QRS duration 114, QTC 452, no signs of acute ischemia Medical Decision Making - Medical Decision Making 41-year-old male with history of ischemic cardiomyopathy status post pacemaker defibrillator placement approximately 2 years ago presents with pain in his left shoulder over the site of his pacemaker. On examination there is no signs of erythema, no swelling, no infection. No signs of swelling in the left upper extremity, distal pulses are intact. Range of motion at the shoulder is within normal limits. EKG is obtained shows atrial sensed ventricular paced rhythm. Chest x-ray shows no acute intrathoracic process, normal atrial and ventricular lead placement. Laboratory studies reveal normal white blood cell count, stable hemoglobin. Electrolytes within normal limits. Patient's blood sugar is elevated, he doesn't radiating more sugar throughout the day today. He will take his insulin when he gets home. Patient will follow-up with his primary care physician. Pain likely related to overuse and muscular strain. - Lab Data Result diagrams: 04/05/17 23:44 04/05/17 23:44 Lab Results 04/05/17 04/05/17 04/05/17 Range/Units 23:44 23:44 23:44 WBC 4.9 (3.8-10.6) k/uL RBC 4.54 (4.30-5.90) m/uL Hgb 12.0 L (13.0-17.5) gm/dL Hct 37.7 L (39.0-53.0) % MCV 83.0 (80.0-100.0) fL MCH 26.4 (25.0-35.0) pg MCHC 31.7 (31.0-37.0) g/dL RDW 16.1 H (11.5-15.5) % Plt Count 204 (150-450) k/uL Neutrophils % 54 % Lymphocytes % 35 % Monocytes % 6 % Eosinophils % 3 % Basophils % 1 % Neutrophils # 2.7 (1.3-7.7) k/uL Lymphocytes # 1.7 (1.0-4.8) k/uL Monocytes # 0.3 (0-1.0) k/uL Eosinophils # 0.1 (0-0.7) k/uL Basophils # 0.1 (0-0.2) k/uL Anisocytosis Slight Sodium 134 L (137-145) mmol/L Potassium 4.9 (3.5-5.1) mmol/L Chloride 100 (98-107) mmol/L Carbon Dioxide 25 (22-30) mmol/L Anion Gap 9 mmol/L BUN 18 (9-20) mg/dL Creatinine 1.20 (0.66-1.25) mg/dL Est GFR (MDRD) Af Amer >60 (>60 ml/min/1.73 sqM) Est GFR (MDRD) Non-Af >60 (>60 ml/min/1.73 sqM) Glucose 352 H (74-99) mg/dL Calcium 9.6 (8.4-10.2) mg/dL Total Bilirubin 0.3 (0.2-1.3) mg/dL AST 14 L (17-59) U/L ALT 32 (21-72) U/L Alkaline Phosphatase 106 (38-126) U/L Troponin I 0.019 (0.000-0.034) ng/mL Total Protein 5.8 L (6.3-8.2) g/dL Albumin 3.5 (3.5-5.0) g/dL Disposition Clinical Impression: Musculoskeletal chest pain Disposition: HOME SELF-CARE Condition: Good Instructions: Chest Pain (ED), Shoulder Sprain (ED) Referrals: Junie New MD [Primary Care Provider] - 1-2 days Time of Disposition: 00:40
[2017-04-05] MEDS ORDERED: MORPHINE SULFATE 10 MG/ML SYRINGE IVP STA (23:30)
--- NOTE | 2017-04-05 23:40 | XR ---
EXAM: XR Chest, 2 Views CLINICAL HISTORY: Reason: Pain TECHNIQUE: Frontal and lateral views of the chest. COMPARISON: 03/30/17. FINDINGS: Lungs: No consolidation. Pleural space: Unremarkable. No pneumothorax. Heart: Unremarkable. Left chest cardiac conduction device again noted. Mediastinum: Unremarkable. Bones/joints: Unremarkable. IMPRESSION: No evidence of acute cardiopulmonary disease.
[2017-04-05 23:52] LABS: Anisocytosis Slight; Basophils # (A) 0.1 k/uL (0-0.2); Basophils % (A) 1 %; CH 26.9; CHCM 32.4; Eosinophils # (A) 0.1 k/uL (0-0.7); Eosinophils % (A) 3 %; HCT 37.7 % (39.0-53.0); Luc # (Auto) 0.07; Luc % (Auto) 1; Lymphocytes # (A) 1.7 k/uL (1.0-4.8); Lymphocytes % (A) 35 %; MCH 26.4 pg (25.0-35.0); MCHC 31.7 g/dL (31.0-37.0); Mean Platelet Volume 7.2; Monocytes # (A) 0.3 k/uL (0-1.0); Monocytes % (A) 6 %; Neutrophils # (A) 2.7 k/uL (1.3-7.7); Neutrophils % (A) 54 %; RBC 4.54 m/uL (4.30-5.90); RDW 16.1 % (11.5-15.5); WBC 4.9 k/uL (3.8-10.6)
[2017-04-06] LABS: ALT 32 U/L (21-72); AST 14 U/L (17-59); Alkaline Phosphatase 106 U/L (38-126); Anion Gap 9 mmol/L; Blood Urea Nitrogen 18 mg/dL (9-20); Calcium 9.6 mg/dL (8.4-10.2); Carbon Dioxide 25 mmol/L (22-30); Chloride 100 mmol/L (98-107); Glucose 352 mg/dL (74-99); Non-African American GFR(MDRD) >60 (>60 ml/min/1.73 sqM); Potassium 4.9 mmol/L (3.5-5.1); Sodium 134 mmol/L (137-145); Total Bilirubin 0.3 mg/dL (0.2-1.3); Total Protein 5.8 g/dL (6.3-8.2)
[2017-04-06 00:47] VITALS: BP 169/96; PULSE 91; RESP 18; TEMP 98.1
== END 2017-04-06 00:45 | disposition home or self-care (01) ==
LOC: EC 21:47
DX: R07.89 Other chest pain (principal); I11.0 Hypertensive heart disease with heart failure; I50.9 Heart failure, unspecified; I25.10 Atherosclerotic heart disease of native coronary artery without angina pectoris; E11.9 Type 2 diabetes mellitus without complications; K21.9 Gastro-esophageal reflux disease without esophagitis; E78.5 Hyperlipidemia, unspecified; I25.2 Old myocardial infarction; I25.5 Ischemic cardiomyopathy; F41.9 Anxiety disorder, unspecified; F32.9 Major depressive disorder, single episode, unspecified; F43.10 Post-traumatic stress disorder, unspecified; Z86.14 Personal history of Methicillin resistant Staphylococcus aureus infection; Z86.73 Personal history of transient ischemic attack (TIA), and cerebral infarction without residual deficits; Z98.61 Coronary angioplasty status; Z95.0 Presence of cardiac pacemaker; Z79.84 Long term (current) use of oral hypoglycemic drugs; Z79.899 Other long term (current) drug therapy; Z88.0 Allergy status to penicillin; Z88.1 Allergy status to other antibiotic agents; Z88.5 Allergy status to narcotic agent; Z88.6 Allergy status to analgesic agent; Z88.8 Allergy status to other drugs, medicaments and biological substances; Z91.013 Allergy to seafood; Z91.041 Radiographic dye allergy status
CPT/HCPCS: 36415; 93005; 80053; 84484; 85025; 71020; 99285; 96374; J2270

== ENCOUNTER 2017-04-11 17:06 | Inpatient (IN) | payer MEDICARE, OTHER ==
[2017-04-11] MEDS ORDERED: SODIUM CHLORIDE 0.9% 1,000 ML IV STA (17:38)
[2017-04-11] MEDS ORDERED: MORPHINE SULFATE 4 MG/ML SYRINGE IV STA (17:38)
[2017-04-11] MEDS ORDERED: ONDANSETRON 4 MG/2 ML VIAL IVP STA (18:16)
--- NOTE | 2017-04-11 18:21 | ED ---
General Adult HPI - General Chief complaint: Chest Pain Stated complaint: Chest Pain Time Seen by Provider: 04/11/17 17:29 Source: patient, RN notes reviewed, old records reviewed Mode of arrival: wheelchair Limitations: no limitations - History of Present Illness Initial comments: 41-year-old male with history of ischemic cardiomyopathy, and diabetes presents with a three-day history of nausea vomiting and chest pain. Patient states chest pain began today. Sharp central chest pain. Patient did take a nitroglycerin at home, this somewhat relieved his symptoms. He had a second episode of chest pain with nausea but took a second nitroglycerin and came to the ER for evaluation. Denies any radiating symptoms to his pain. Pain was sharp and severe in nature. Patient states that the vomiting has been progressive over 3 days, 5 total episodes. No diarrhea. Patient does complain of bilateral abdominal pain which she attributes to vomiting. Minimal pain at this time in his abdomen. No fever. - Related Data Home Medications Medication Instructions Recorded Confirmed Nitroglycerin Sl Tabs [Nitrostat] 0.4 mg SUBLINGUAL Q5M PRN 10/13/13 04/11/17 metFORMIN HCL 1,000 mg PO BID 07/03/15 04/11/17 Omeprazole [PriLOSEC] 40 mg PO HS 08/13/15 04/11/17 Dulaglutide [Trulicity] 1.5 mg SQ OROZCO 03/10/16 04/11/17 Glimepiride 4 mg PO BID 03/10/16 04/11/17 Rosuvastatin Calcium 40 mg PO HS 05/05/16 04/11/17 Ranolazine [Ranexa] 1,000 mg PO BID 06/09/16 04/11/17 Primidone [Mysoline] 100 mg PO HS 06/30/16 04/11/17 Loperamide [Imodium] 2 mg PO TID 10/20/16 04/11/17 Metoprolol Tartrate 50 mg PO BID 10/20/16 04/11/17 Cholecalciferol (Vitamin D3) 2,000 unit PO DAILY 11/07/16 04/11/17 [Vitamin D3] Linagliptin [Tradjenta] 5 mg PO HS 12/19/16 04/11/17 ARIPiprazole [ARIPiprazole Odt] 15 mg PO HS 02/14/17 04/11/17 Albuterol Inhaler [Ventolin Hfa 2 puff INHALATION RT-QID PRN 02/14/17 04/11/17 Inhaler] Gabapentin [Neurontin] 400 mg PO TID 02/24/17 04/11/17 Previous Rx's Medication Instructions Recorded Prasugrel [Effient] 10 mg PO DAILY tab 07/01/16 Sertraline HCl [Zoloft] 200 mg PO DAILY #28 01/27/17 hydrALAZINE HCL [Apresoline] 25 mg PO BID #60 tab 02/26/17 traMADol HCl [Ultram] 50 mg PO Q8H PRN #30 tab 02/26/17 Aspirin EC [Ecotrin Low Dose] 81 mg PO BID #0 03/13/17 Isosorbide Mononitrate ER [Imdur] 60 mg PO DAILY #30 tab.er.24h 03/13/17 Allergies Allergy/AdvReac Type Severity Reaction Status Date / Time erythromycin base Allergy Severe Swelling Verified 04/11/17 18:10 [Erythromycin Base] codeine Allergy Unknown Swelling Verified 04/11/17 18:10 meclizine Allergy Unknown Unknown Verified 04/11/17 18:10 Penicillins Allergy Unknown Rash/Hives Verified 04/11/17 18:10 shellfish derived Allergy Unknown Anaphylaxis Verified 04/11/17 18:10 Fish Containing Products Allergy Anaphylaxis Verified 04/11/17 18:10 [Fish] Iodinated Contrast- Oral and Allergy Anaphylaxis Verified 04/11/17 18:10 IV Dye cephalexin monohydrate AdvReac Unknown Nausea & Verified 04/11/17 18:10 [From Keflex] Vomiting naproxen AdvReac Unknown Compromises Verified 04/11/17 18:10 Kidney Function atorvastatin calcium AdvReac Myalgia Verified 04/11/17 18:10 [From Lipitor] hydrocodone [From [place]] AdvReac Rapid Verified 04/11/17 18:10 Heart Rate Review of Systems ROS Statement: Those systems with pertinent positive or pertinent negative responses have been documented in the HPI. ROS Other: All systems not noted in ROS Statement are negative. Past Medical History Past Medical History: Asthma, Coronary Artery Disease (CAD), Chest Pain / Angina , Heart Failure, CVA/TIA, Diabetes Mellitus, GERD/Reflux, Hyperlipidemia, Hypertension, Myocardial Infarction ([place]), Osteoarthritis (OA), Pneumonia, Skin Disorder, Sleep Apnea/CPAP/BIPAP Additional Past Medical History / Comment(s): Coronary artery disease with multiple vessel disease, ischemic cardiomyopathy, diabetic neuropathy bilateral hands and feet, hypertensive cardiovascular disease, chronic gastritis, current R ankle fracture, disc disease, chronic back pain, depression with hx of suicide attempts, GASTROPARESIS, PSORIASES,NIDDM type II, UTI, migraines, TIA , PUD, hiatal hernia, L rotator cuff tear, bronchitis, pseudoaneurysm L groin post procedure. Last Myocardial Infarction Date:: 06/03/16 per pt. History of Any Multi-Drug Resistant Organisms: MRSA Date of last positivie culture/infection: 06/09/16 MDRO Source:: face Past Surgical History: AICD, Appendectomy, Cholecystectomy, Heart Catheterization With Stent, Hernia Repair Additional Past Surgical History / Comment(s): Pt has had multiple cardiac procedures-caths/PTCA/stenting with last stent place 2 weeks ago at [facility]-Jan. 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 Past Anesthesia/Blood Transfusion Reactions: No Reported Reaction Additional Past Anesthesia/Blood Transfusion Reaction / Comment(s): . Date of Last Stent Placement:: 12/23/16 Type of Cardiac Device: Biventricular Pacemaker, AICD Device Placement Date:: 09/19/15 Past Psychological History: Anxiety, Depression, PTSD Smoking Status: Never smoker Past Alcohol Use History: None Reported Past Drug Use History: None Reported - Past Family History Mother Family Medical History: Coronary Artery Disease (CAD), Myocardial Infarction ([place] ) Additional Family Medical History / Comment(s): 7 [place] and faulty heart valve. Pt does not know the age when mother had her MIs. Father History Unknown: Yes Additional Family Medical History / Comment(s): Does not know who father is Brother(s) Family Medical History: Congestive Heart Failure (CHF), Myocardial Infarction ( [place]) Additional Family Medical History / Comment(s): Parkinsons. Pt does not know at what age his brother had a [place] Patient has Family Medical History: No Reported History Additional Family Medical History / Comment(s): There is a strong family history for heart disease, hypertension, and diabetes. General Exam Limitations: no limitations General appearance: alert, in no apparent distress Head exam: Present: atraumatic, normocephalic Eye exam: Present: normal appearance, PERRL, EOMI ENT exam: Present: mucous membranes dry Neck exam: Present: normal inspection. Absent: tenderness, meningismus Respiratory exam: Present: normal lung sounds bilaterally. Absent: respiratory distress Cardiovascular Exam: Present: normal rhythm, tachycardia GI/Abdominal exam: Present: soft, distended. Absent: tenderness Extremities exam: Present: normal inspection, normal capillary refill. Absent: pedal edema Back exam: Present: normal inspection, full ROM Neurological exam: Present: alert, oriented X3, CN II-XII intact. Absent: motor sensory deficit Psychiatric exam: Present: normal affect, normal mood Skin exam: Present: warm, dry, intact. Absent: cyanosis, diaphoretic Course Vital Signs 04/11/17 04/11/17 17:25 18:30 Temperature 99.8 F H Pulse Rate 129 H 111 H Respiratory 24 20 Rate Blood Pressure 153/92 142/102 O2 Sat by Pulse 97 97 Oximetry EKG Findings - EKG Comments: EKG Findings:: EKG shows atrial sensed ventricular paced rhythm, ventricular rate 118, TN interval 126, QRS duration 110, QTC 482, no ST segment elevation Medical Decision Making - Medical Decision Making 41-year-old male with history of ischemic cardiac myopathy presents with nausea vomiting and chest pain. Patient's pain is somewhat atypical, however it is relieved with nitroglycerin. Patient is tachycardic on initial presentation. Likely chest pain is secondary to demand ischemia given his coronary artery disease. Laboratory studies are obtained, normal white blood cell count, hemoglobin stable magnesium is 1.3 and is replaced. Troponin is mildly elevated 0.048 likely related to demand ischemia. Chest x-ray shows no acute findings. After initial treatment with IV pain medication and antiemetics, patient does not feel any better. He will be placed in observation for electrolyte replacement, symptomatic treatment of nausea and vomiting. Diagnosis: Nausea vomiting, hypomagnesemia, chest pain, troponin elevation, demand ischemia - Lab Data Result diagrams: 04/11/17 18:03 04/11/17 18:03 Lab Results 04/11/17 04/11/17 04/11/17 Range/Units 18:03 18:03 18:03 WBC 5.7 (3.8-10.6) k/uL RBC 5.32 (4.30-5.90) m/uL Hgb 13.9 (13.0-17.5) gm/dL Hct 42.5 (39.0-53.0) % MCV 79.9 L (80.0-100.0) fL MCH 26.2 (25.0-35.0) pg MCHC 32.8 (31.0-37.0) g/dL RDW 15.7 H (11.5-15.5) % Plt Count 257 (150-450) k/uL Neutrophils % 67 % Lymphocytes % 24 % Monocytes % 5 % Eosinophils % 1 % Basophils % 1 % Neutrophils # 3.9 (1.3-7.7) k/uL Lymphocytes # 1.4 (1.0-4.8) k/uL Monocytes # 0.3 (0-1.0) k/uL Eosinophils # 0.1 (0-0.7) k/uL Basophils # 0.0 (0-0.2) k/uL PT 10.6 (9.0-12.0) sec INR 1.0 (<1.2) APTT 21.9 L (22.0-30.0) sec Sodium 135 L (137-145) mmol/L Potassium 4.6 (3.5-5.1) mmol/L Chloride 102 (98-107) mmol/L Carbon Dioxide 21 L (22-30) mmol/L Anion Gap 12 mmol/L BUN 18 (9-20) mg/dL Creatinine 1.10 (0.66-1.25) mg/dL Est GFR (MDRD) Af Amer >60 (>60 ml/min/1.73 sqM) Est GFR (MDRD) Non-Af >60 (>60 ml/min/1.73 sqM) Glucose 247 H (74-99) mg/dL Calcium 10.1 (8.4-10.2) mg/dL Magnesium 1.3 L (1.6-2.3) mg/dL Total Bilirubin 0.8 (0.2-1.3) mg/dL AST 19 (17-59) U/L ALT 36 (21-72) U/L Alkaline Phosphatase 117 (38-126) U/L Total Protein 6.6 (6.3-8.2) g/dL Albumin 3.9 (3.5-5.0) g/dL Disposition Clinical Impression: Chest pain, Hypomagnesemia, Nausea & vomiting Disposition: ADMITTED IP TO THIS HOSP Condition: Stable Referrals: Junie New MD [Primary Care Provider] - 1-2 days Decision to Admit Reason: Admit from EC Decision Date: 04/11/17 Decision Time: 19:15
[2017-04-11 18:34] LABS: Basophils % (A) 1 %; CHCM 32.6; Eosinophils # (A) 0.1 k/uL (0-0.7); Eosinophils % (A) 1 %; HCT 42.5 % (39.0-53.0); HDW 2.91; HGB 13.9 gm/dL (13.0-17.5); Luc # (Auto) 0.08; Luc % (Auto) 1; Lymphocytes # (A) 1.4 k/uL (1.0-4.8); Lymphocytes % (A) 24 %; MCH 26.2 pg (25.0-35.0); MCHC 32.8 g/dL (31.0-37.0); MCV 79.9 fL (80.0-100.0); Mean Platelet Volume 7.6; Monocytes # (A) 0.3 k/uL (0-1.0); Monocytes % (A) 5 %; Neutrophils # (A) 3.9 k/uL (1.3-7.7); Neutrophils % (A) 67 %; RBC 5.32 m/uL (4.30-5.90); RDW 15.7 % (11.5-15.5); WBC 5.7 k/uL (3.8-10.6); WBC (Perox) 5.98
[2017-04-11 18:49] LABS: ALT 36 U/L (21-72); AST 19 U/L (17-59); Alkaline Phosphatase 117 U/L (38-126); Anion Gap 12 mmol/L; Blood Urea Nitrogen 18 mg/dL (9-20); Calcium 10.1 mg/dL (8.4-10.2); Carbon Dioxide 21 mmol/L (22-30); Chloride 102 mmol/L (98-107); Glucose 247 mg/dL (74-99); Magnesium 1.3 mg/dL (1.6-2.3); Non-African American GFR(MDRD) >60 (>60 ml/min/1.73 sqM); Partial Thromboplastin Time 21.9 sec (22.0-30.0); Potassium 4.6 mmol/L (3.5-5.1); Prothrombin Time 10.6 sec (9.0-12.0); Sodium 135 mmol/L (137-145); Total Bilirubin 0.8 mg/dL (0.2-1.3); Total Protein 6.6 g/dL (6.3-8.2)
--- NOTE | 2017-04-11 18:59 | XR ---
EXAMINATION TYPE: XR chest 2V DATE OF EXAM: 04/11/2017 COMPARISON: 04/05/2017 HISTORY: Chest pain TECHNIQUE: Frontal and lateral views of the chest are obtained. FINDINGS: There is no focal air space opacity, pleural effusion, or pneumothorax seen. Multiple siz e lead left-sided cardiac device is stable in position The cardiac silhouette size is within normal l imits. The osseous structures are intact. IMPRESSION: No acute cardiopulmonary process.
[2017-04-11] MEDS: MAGNESIUM SULFATE-D5W PMX 1 GM in DEXTROSE/WATER 1 100ML.BAG IVPB SCH ×2 (19:06→21:57)
[2017-04-11] MEDS ORDERED: ASPIRIN 325 MG TAB PO STA (19:07)
[2017-04-11 19:10] LABS: Creatine Kinase MB 1.1 ng/mL (0.0-2.4)
[2017-04-11] MEDS ORDERED: NALOXONE 0.4 MG/ML 1 ML VIAL IV PRN ×2 (19:11→21:56)
[2017-04-11 19:20] LABS: Troponin I 0.048 ng/mL (0.000-0.034)
[2017-04-11 20:20] VITALS: BMI 38.7
[2017-04-11 20:24] LABS: Glucose,Whole Blood 267 mg/dL (75-99)
[2017-04-11] MEDS ORDERED: MORPHINE SULFATE 4 MG/ML SYRINGE IV PRN (21:56)
[2017-04-11] MEDS ORDERED: ONDANSETRON 4 MG/2 ML VIAL IVP PRN (21:56)
[2017-04-11] MEDS ORDERED: ACETAMINOPHEN TAB 325 MG TAB PO PRN (21:56)
[2017-04-11] MEDS ORDERED: traMADol 50 MG TAB PO PRN (21:59)
[2017-04-11] MEDS ORDERED: ALBUTEROL NEBULIZED 2.5 MG/3 ML INHALATION PRN (21:59)
[2017-04-11] MEDS ORDERED: HEPARIN SODIUM,PORCINE/D5W PMX 25,000 UNIT in DEXTROSE/WATER 1 500ML.BAG IV SCH (22:00)
[2017-04-11] MEDS ORDERED: METOPROLOL TARTRATE 50 MG TAB PO STA (22:03)
--- NOTE | 2017-04-11 22:19 | P.HPIM ---
History of Present Illness H&P Date: 04/11/17 Chief Complaint: Chest pain 41-year-old male with history of CAD, recent stenting in December of the circumflex artery for in-stent restenosis, ischemic cardiomyopathy EF 40-45% with AICD placement, diabetes mellitus II, hypertension, hyperlipidemia, gastroesophageal reflux disease, sleep apnea and TIA. He follows regularly with a jewel hole cornerer out of [place], Dr. Peres. Patient presented to the emergency department because of multiple episodes of chest pain that began today. Initially it felt like sharp central chest pain then it became pressure- like and it radiated to the left arm and to the back. Patient did take a nitroglycerin at home, this somewhat relieved his symptoms. He had a second episode of chest pain but took a second nitroglycerin and came to the ER for evaluation. He had a total of 4 episodes of chest pain so far today. The pain is associated with shortness of breath and nausea/vomiting, he vomited twice. Patient stated that the pain felt like previous heart attacks. Patient does complain of some abdominal pain which he attributes to vomiting. No fever or chills, no recent illness. No diarrhea, no urinary symptoms. Review of Systems 12 point review of system was performed, negative except for HPI Past Medical History Past Medical History: Asthma, Coronary Artery Disease (CAD), Chest Pain / Angina , Heart Failure, CVA/TIA, Diabetes Mellitus, GERD/Reflux, Hyperlipidemia, Hypertension, Myocardial Infarction ([place]), Osteoarthritis (OA), Pneumonia, Skin Disorder, Sleep Apnea/CPAP/BIPAP Additional Past Medical History / Comment(s): Coronary artery disease with multiple vessel disease, ischemic cardiomyopathy, diabetic neuropathy bilateral hands and feet, hypertensive cardiovascular disease, chronic gastritis, degenerative disc disease, chronic back pain, depression with hx of suicide attempts, GASTROPARESIS, PSORIASES,NIDDM type II, UTI, migraines, TIA, PUD, hiatal hernia, L rotator cuff tear, bronchitis, pseudoaneurysm L groin post procedure. Last Myocardial Infarction Date:: december 2016 History of Any Multi-Drug Resistant Organisms: MRSA Date of last positivie culture/infection: 06/09/16 MDRO Source:: face Past Surgical History: AICD, Appendectomy, Cholecystectomy, Heart Catheterization With Stent, Hernia Repair Additional Past Surgical History / Comment(s): Pt has had multiple cardiac procedures-caths/PTCA/stenting with last stent placed at 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 Past Anesthesia/Blood Transfusion Reactions: No Reported Reaction Additional Past Anesthesia/Blood Transfusion Reaction / Comment(s): . Date of Last Stent Placement:: 12/23/16 Type of Cardiac Device: Biventricular Pacemaker, AICD Device Placement Date:: 09/19/15 Past Psychological History: Anxiety, Depression, PTSD Additional Psychological History / Comment(s): Several suicide attempts with use of insulin. PTSD- IN 2000- HIS 3 MONTH OLD SON IN HIS ARMS(CHILD WAS BORN 2 MONTHS PREMATURE). Pt states his depression is stable at this time and does not have any suicidal thoughts or plans. He is independent. PT ON DISABILTY MULTIFACTORIAL PER PT. He normally drives but d/t R ankle fracture he is not driving at this time. Smoking Status: Never smoker Past Alcohol Use History: None Reported Additional Past Alcohol Use History / Comment(s): Past alcohol abuse- pt states he drinks rarely now for the past 6 yrs.. Past Drug Use History: None Reported Additional Drug Use History / Comment(s): Pt has smoked marijuana in the past- last smoked in 1999 - Past Family History Mother Family Medical History: Coronary Artery Disease (CAD), Myocardial Infarction ([place] ) Additional Family Medical History / Comment(s): 7 [place] and faulty heart valve. Pt does not know the age when mother had her MIs. Father History Unknown: Yes Additional Family Medical History / Comment(s): Does not know who father is Brother(s) Family Medical History: Congestive Heart Failure (CHF), Myocardial Infarction ( [place]) Additional Family Medical History / Comment(s): Parkinsons. Pt does not know at what age his brother had a [place] Patient has Family Medical History: No Reported History Additional Family Medical History / Comment(s): There is a strong family history for heart disease, hypertension, and diabetes. Medications and Allergies Home Medications Medication Instructions Recorded Confirmed Type Nitroglycerin Sl Tabs [Nitrostat] 0.4 mg SUBLINGUAL Q5M PRN 10/13/13 04/11/17 History metFORMIN HCL 1,000 mg PO BID 07/03/15 04/11/17 History Omeprazole [PriLOSEC] 40 mg PO HS 08/13/15 04/11/17 History Dulaglutide [Trulicity] 1.5 mg SQ OROZCO 03/10/16 04/11/17 History Glimepiride 4 mg PO BID 03/10/16 04/11/17 History Rosuvastatin Calcium 40 mg PO HS 05/05/16 04/11/17 History Ranolazine [Ranexa] 1,000 mg PO BID 06/09/16 04/11/17 History Primidone [Mysoline] 100 mg PO HS 06/30/16 04/11/17 History Prasugrel [Effient] 10 mg PO DAILY tab 07/01/16 04/11/17 Rx Loperamide [Imodium] 2 mg PO TID 10/20/16 04/11/17 History Metoprolol Tartrate 50 mg PO BID 10/20/16 04/11/17 History Cholecalciferol (Vitamin D3) 2,000 unit PO DAILY 11/07/16 04/11/17 History [Vitamin D3] Linagliptin [Tradjenta] 5 mg PO HS 12/19/16 04/11/17 History Sertraline HCl [Zoloft] 200 mg PO DAILY #28 01/27/17 04/11/17 Rx ARIPiprazole [ARIPiprazole Odt] 15 mg PO HS 02/14/17 04/11/17 History Albuterol Inhaler [Ventolin Hfa 2 puff INHALATION RT-QID PRN 02/14/17 04/11/17 History Inhaler] Gabapentin [Neurontin] 400 mg PO TID 02/24/17 04/11/17 History hydrALAZINE HCL [Apresoline] 25 mg PO BID #60 tab 02/26/17 04/11/17 Rx traMADol HCl [Ultram] 50 mg PO Q8H PRN #30 tab 02/26/17 04/11/17 Rx Isosorbide Mononitrate ER [Imdur] 60 mg PO DAILY #30 tab.er.24h 03/13/17 Rx Aspirin EC [Ecotrin Low Dose] 81 mg PO DAILY 04/11/17 04/11/17 History Allergies Allergy/AdvReac Type Severity Reaction Status Date / Time erythromycin base Allergy Severe Swelling Verified 04/11/17 18:10 [Erythromycin Base] codeine Allergy Unknown Swelling Verified 04/11/17 18:10 meclizine Allergy Unknown Unknown Verified 04/11/17 18:10 Penicillins Allergy Unknown Rash/Hives Verified 04/11/17 18:10 shellfish derived Allergy Unknown Anaphylaxis Verified 04/11/17 18:10 Fish Containing Products Allergy Anaphylaxis Verified 04/11/17 18:10 [Fish] Iodinated Contrast- Oral and Allergy Anaphylaxis Verified 04/11/17 18:10 IV Dye cephalexin monohydrate AdvReac Unknown Nausea & Verified 04/11/17 18:10 [From Keflex] Vomiting naproxen AdvReac Unknown Compromises Verified 04/11/17 18:10 Kidney Function atorvastatin calcium AdvReac Myalgia Verified 04/11/17 18:10 [From Lipitor] hydrocodone [From [place]] AdvReac Rapid Verified 04/11/17 18:10 Heart Rate Physical Exam Vitals: Vital Signs Temp Pulse Pulse Resp BP BP Pulse Ox 04/11/17 20:15 98.0 F 97 18 141/93 94 L 04/11/17 19:58 96 04/11/17 18:30 111 H 20 142/102 97 04/11/17 17:25 99.8 F H 129 H 24 153/92 97 Intake and Output 04/11/17 04/11/17 04/11/17 06:59 14:59 22:59 Intake Total 500 Balance 500 Intake: Amount of Fluid Infused ( 500 ml) Other: Weight 108.9 kg Patient Weight 04/12/17 06:59 Weight 108.9 kg Constitutional: No acute distress, conversant, pleasant Eyes:Anicteric sclerae, moist conjunctiva, no lid-lag, PERRLA, ENMT: Oropharynx clear, no erythema, exudates Neck: Supple, FROM, no masses, or JVD, No carotid bruits, No thyromegaly Lungs: Clear to auscultation, Clear to percussion, Normal respiratory effort, no accessory muscle use Cardiovascular: Tachycardic, regular, No murmurs, gallops, or rubs, No peripheral edema Abdominal: Soft, Nontender, no guarding, rebound or rigidity, Normoactive bowel sounds, No hepatomegaly, No splenomegaly, No palpable mass Skin: Normal temperature, tone, texture, turgor, no induration, No subcutaneous nodules, No rash, lesions, No ulcers Extremities: No digital cyanosis, No clubbing, Pedal pulses intact and symmetrical, Radial pulses intact and symmetrical, No calf tenderness Psychiatric: Alert and oriented to person, place and time, appropriate affect, intact judgement Neuro: Muscles Strength 5/5 in all 4 extremities, Sensation to light touch grossly present throughout, Cranial nerves II-XII grossly intact, no focal sensory deficits Results CBC & Chem 7: 04/11/17 18:03 04/11/17 18:03 Labs: Abnormal Lab Results - Last 24 Hours (Table) 04/11/17 04/11/17 04/11/17 Range/Units 18:03 18:03 18:03 MCV 79.9 L (80.0-100.0) fL RDW 15.7 H (11.5-15.5) % APTT (22.0-30.0) sec Sodium 135 L (137-145) mmol/L Carbon Dioxide 21 L (22-30) mmol/L Glucose 247 H (74-99) mg/dL POC Glucose (mg/dL) (75-99) mg/dL Magnesium 1.3 L (1.6-2.3) mg/dL Total Creatine Kinase 49 L (55-170) U/L Troponin I 0.048 H* (0.000-0.034) ng/mL 04/11/17 04/11/17 Range/Units 18:03 20:03 MCV (80.0-100.0) fL RDW (11.5-15.5) % APTT 21.9 L (22.0-30.0) sec Sodium (137-145) mmol/L Carbon Dioxide (22-30) mmol/L Glucose (74-99) mg/dL POC Glucose (mg/dL) 267 H (75-99) mg/dL Magnesium (1.6-2.3) mg/dL Total Creatine Kinase (55-170) U/L Troponin I (0.000-0.034) ng/mL Thrombosis Risk Factor Assmnt - Choose All That Apply Each Factor Represents 1 point: Age 41-60 years, Obesity (BMI >25) Thrombosis Risk Factor Assessment Total Risk Factor Score: 2 Thrombosis Risk Factor Assessment Level: Low Risk Assessment and Plan Plan: #1 Unstable angina/acute non-ST elevation myocardial infarction: With positive troponins Repeat troponins Start heparin drip Was given aspirin in the emergency department 325 mg, will resume Will administer metoprolol 100 mg by mouth 1 because he is slightly tachycardic Continue Effient Continue statin Consult cardiology Labs, EKG and chest x-ray were all reviewed Discussed with RN #2 Hypomagnesemia: Magnesium was replaced with 2 g of magnesium sulfate in the emergency department We'll repeat and for further need for replacement #3 Diabetes type 2: Hold oral hypoglycemics Sliding scale insulin moderate dose Blood sugar checks every before meals and at bedtime #4 Chronic systolic congestive heart failure, benign hypertension, GERD, hyperlipidemia: All stable Continue all medications
[2017-04-11] MEDS ORDERED: HEPARIN SODIUM,PORCINE 5,000 UNIT/ML 1 ML VIAL IV ONE (22:26)
[2017-04-11] MEDS: INSULIN ASPART 100 UNIT/ML 1 ML 10 ML VIAL SQ SCH (22:48)
[2017-04-11] MEDS: GABAPENTIN 400 MG CAP PO SCH (22:50)
[2017-04-12] MEDS: NITROGLYCERIN SL TABS 0.4 MG TAB SUBLINGUAL PRN ×2 (03:20→03:25)
[2017-04-12 06:19] LABS: Glucose,Whole Blood 142 mg/dL (75-99)
[2017-04-12 06:20] LABS: Basophils % (A) 1 %; CH 26.3; CHCM 32.1; Eosinophils # (A) 0.1 k/uL (0-0.7); Eosinophils % (A) 3 %; HCT 38.5 % (39.0-53.0); HDW 3.04; HGB 12.4 gm/dL (13.0-17.5); Hypochromasia Slight; Luc # (Auto) 0.13; Luc % (Auto) 3; Lymphocytes # (A) 1.8 k/uL (1.0-4.8); Lymphocytes % (A) 37 %; MCH 26.3 pg (25.0-35.0); MCHC 32.1 g/dL (31.0-37.0); Mean Platelet Volume 7.1; Monocytes # (A) 0.3 k/uL (0-1.0); Monocytes % (A) 6 %; Neutrophils # (A) 2.5 k/uL (1.3-7.7); Neutrophils % (A) 51 %; RBC 4.69 m/uL (4.30-5.90); RDW 14.3 % (11.5-15.5); WBC 4.9 k/uL (3.8-10.6); WBC (Perox) 5.27
[2017-04-12] MEDS: INSULIN ASPART 100 UNIT/ML 1 ML 10 ML VIAL SQ SCH ×4 (06:33→21:32)
[2017-04-12 06:41] LABS: Anion Gap 8 mmol/L; Blood Urea Nitrogen 21 mg/dL (9-20); Calcium 9.1 mg/dL (8.4-10.2); Carbon Dioxide 25 mmol/L (22-30); Chloride 101 mmol/L (98-107); Glucose 137 mg/dL (74-99); Magnesium 1.7 mg/dL (1.6-2.3); Non-African American GFR(MDRD) >60 (>60 ml/min/1.73 sqM); Phosphorous 5.2 mg/dL (2.5-4.5); Potassium 4.1 mmol/L (3.5-5.1); Sodium 134 mmol/L (137-145)
[2017-04-12] MEDS ORDERED: INSULIN ASPART 100 UNIT/ML 1 ML 10 ML VIAL SQ SCH (07:30)
[2017-04-12] MEDS: RANOLAZINE 500 MG TAB.ER.12H PO SCH ×2 (08:18→20:04)
[2017-04-12] MEDS: ISOSORBIDE MONONITRATE ER 60 MG TAB.ER.24H PO SCH (08:18)
[2017-04-12] MEDS: ASPIRIN 81 MG PO SCH (08:18)
[2017-04-12] MEDS: SERTRALINE 100 MG TAB PO SCH (08:18)
[2017-04-12] MEDS: CHOLECALCIFEROL 1,000 UNIT TAB PO SCH (08:18)
[2017-04-12] MEDS: hydrALAZINE HCL 25 MG TAB PO SCH ×2 (08:18→20:04)
[2017-04-12] MEDS: METOPROLOL TARTRATE 50 MG TAB PO SCH ×2 (08:18→20:04)
[2017-04-12] MEDS: GABAPENTIN 400 MG CAP PO SCH ×3 (08:18→20:04)
[2017-04-12] MEDS: PRASUGREL 10 MG TAB PO SCH (08:19)
--- NOTE | 2017-04-12 09:23 | P.PN ---
Subjective Progress Note Date: 04/12/17 Principal diagnosis: angina 41-year-old male with extensive cardiac history last stent being in December performed on Sherry. Patient comes in with symptoms of chest pain described as pressure with radiation to his arm and neck. Numbness in his arm with shortness of breath. Last episode was at 2 AM this morning. Has not had any chest pain. Gordon received morphine pain about 15 minutes. He denies any palpitations at this time. Objective - Vital Signs Vital signs: Vital Signs Temp 97.9 F 04/12/17 04:00 Pulse 75 04/12/17 04:00 Resp 18 04/12/17 04:00 BP 130/77 04/12/17 04:00 Pulse Ox 95 04/12/17 04:00 Intake & Output 04/11/17 04/12/17 04/12/17 18:59 06:59 18:59 Intake Total 654.667 Balance 654.667 Weight 112.945 kg 108.9 kg Intake: Amount of Fluid Infused ( 500 ml) Intake, IV Titration 154.667 Amount Heparin Sodium,Porcine/ 154.667 D5w Pmx 25,000 unit In Dextrose/Water 1 500ml. bag @ 9.18 UNITS/KG/HR 19 .99 mls/hr IV .Q24H [facility] Rx#:[id number] Other: # Voids 2 - Exam gen:alert and oriented lungs:clear to auscultation heart:s1s2 abdomen:soft and depressible,non tender ext:no edema - Labs CBC & Chem 7: 04/12/17 05:25 04/12/17 05:25 Labs: Abnormal Lab Results - Last 24 Hours (Table) 04/11/17 04/11/17 04/11/17 Range/Units 18:03 18:03 18:03 Hgb (13.0-17.5) gm/dL Hct (39.0-53.0) % MCV 79.9 L (80.0-100.0) fL RDW 15.7 H (11.5-15.5) % APTT (22.0-30.0) sec Sodium 135 L (137-145) mmol/L Carbon Dioxide 21 L (22-30) mmol/L BUN (9-20) mg/dL Glucose 247 H (74-99) mg/dL POC Glucose (mg/dL) (75-99) mg/dL Phosphorus (2.5-4.5) mg/dL Magnesium 1.3 L (1.6-2.3) mg/dL Total Creatine Kinase 49 L (55-170) U/L Troponin I 0.048 H* (0.000-0.034) ng/mL 04/11/17 04/11/17 04/11/17 Range/Units 18:03 20:03 23:55 Hgb (13.0-17.5) gm/dL Hct (39.0-53.0) % MCV (80.0-100.0) fL RDW (11.5-15.5) % APTT 21.9 L (22.0-30.0) sec Sodium (137-145) mmol/L Carbon Dioxide (22-30) mmol/L BUN (9-20) mg/dL Glucose (74-99) mg/dL POC Glucose (mg/dL) 267 H (75-99) mg/dL Phosphorus (2.5-4.5) mg/dL Magnesium (1.6-2.3) mg/dL Total Creatine Kinase (55-170) U/L Troponin I 0.047 H* (0.000-0.034) ng/mL 04/12/17 04/12/17 04/12/17 Range/Units 05:25 05:25 05:25 Hgb 12.4 L (13.0-17.5) gm/dL Hct 38.5 L (39.0-53.0) % MCV (80.0-100.0) fL RDW (11.5-15.5) % APTT (22.0-30.0) sec Sodium 134 L (137-145) mmol/L Carbon Dioxide (22-30) mmol/L BUN 21 H (9-20) mg/dL Glucose 137 H (74-99) mg/dL POC Glucose (mg/dL) (75-99) mg/dL Phosphorus 5.2 H (2.5-4.5) mg/dL Magnesium (1.6-2.3) mg/dL Total Creatine Kinase (55-170) U/L Troponin I 0.051 H* (0.000-0.034) ng/mL 04/12/17 Range/Units 06:13 Hgb (13.0-17.5) gm/dL Hct (39.0-53.0) % MCV (80.0-100.0) fL RDW (11.5-15.5) % APTT (22.0-30.0) sec Sodium (137-145) mmol/L Carbon Dioxide (22-30) mmol/L BUN (9-20) mg/dL Glucose (74-99) mg/dL POC Glucose (mg/dL) 142 H (75-99) mg/dL Phosphorus (2.5-4.5) mg/dL Magnesium (1.6-2.3) mg/dL Total Creatine Kinase (55-170) U/L Troponin I (0.000-0.034) ng/mL Assessment and Plan (1) NSTEMI (non-ST elevated myocardial infarction) Narrative/Plan: on heparin drip/aspirin/effient/metoprolol Current Visit: No Status: Acute Code(s): I21.4 - NON-ST ELEVATION (NSTEMI) MYOCARDIAL INFARCTION SNOMED Code(s): 711660854 (2) CAD (coronary artery disease) Narrative/Plan: s/p multiple stents last being in 12/2016 continue asa/effient/metoprolol/imdur/ranexa Current Visit: No Status: Acute Code(s): I25.10 - ATHSCL HEART DISEASE OF [place] CORONARY ARTERY W/O ANG PCTRS SNOMED Code(s): 00870552 (3) Cardiomyopathy Narrative/Plan: compensated s/p AICD Patient thinks that ejection fraction in 20's Current Visit: No Status: Acute Code(s): I42.9 - CARDIOMYOPATHY, UNSPECIFIED SNOMED Code(s): 73398703 (4) Diabetes Narrative/Plan: accucheck ac and hs ssi check hba1c Current Visit: No Status: Acute Code(s): E11.9 - TYPE 2 DIABETES MELLITUS WITHOUT COMPLICATIONS SNOMED Code(s): 65716334 (5) HTN (hypertension) Narrative/Plan: controlled continue imdur/metoprolol/hydralazine Current Visit: No Status: Acute Code(s): I10 - ESSENTIAL (PRIMARY) HYPERTENSION SNOMED Code(s): 77026331 (6) Hyperlipemia Narrative/Plan: crestor check lipid profile Current Visit: No Status: Acute Code(s): E78.5 - HYPERLIPIDEMIA, UNSPECIFIED SNOMED Code(s): 89123758 Plan: [facility] to follow
[2017-04-12 12:03] LABS: Glucose,Whole Blood 182 mg/dL (75-99)
--- NOTE | 2017-04-12 13:42 | CONS ---
CONSULTATION Ti Dunham is a 41-year-old gentleman with ischemic cardiomyopathy, previous multivessel intervention. Apparently is known to have a total RCA occlusion, has disease in circumflex and LAD. Both of which were stented in the past. He was seen by Dr. Paiz in mid-February and was discharged to home on March 30. He comes into the hospital with episode of chest pain requiring a sublingual nitroglycerin. He took one sublingual nitroglycerin, came into the hospital. His troponin is 0.04 and 0.05. The troponin pattern does not suggest any myocardial injury. He is resting comfortably at the time of my evaluation. His EKG does not reveal any acute changes. Please refer to the detailed note by Dr. Paiz from 03/30/2017. This patient does have an ejection fraction in the range of 40-45% with multivessel stenting. Then apparently in December, he had a stenting of his circumflex coronary artery for in-stent restenosis and LAD at that time was patent and RCA is totally occluded. He sees a Dr. [facility]pedes at the [facility]. The patient, at the time of my evaluation, is resting comfortably without symptoms. PAST MEDICAL HISTORY: Ischemic heart disease with a history of a Bi-V ICD that was placed in the past. He also has a history of type 2 diabetes, hypertension, hyperlipidemia, previous question of TIA. He has history of sleep apnea. Uses CPAP. Please refer to the detailed consultation from March 30. PHYSICAL EXAMINATION: Blood pressure is 116/70, pulse rate is 70 per minute, regular. HEENT: Unremarkable. Fundus was not examined by me. Neck is supple. No JVD. I do not hear a carotid bruit. There is no thyromegaly. Heart exam reveals S1, S2 without significant rub, murmur or gallop. Lungs are clear abdomen is soft, nontender. Lower extremities reveal normal pulses. No edema. Central nervous system is normal. EKG revealed basically atrial sensed and ventricular paced rhythm, inconclusive. Troponins reveal 0.05 and 0.04, not suggestive of any myocardial injury. IMPRESSION: 1. Chest pain syndrome in a patient with known ischemic heart disease who was recently hospitalized. Pain seems quite atypical and troponin profile does not suggest myocardial injury. 2. Hypertension. 3. Diabetes mellitus. 4. History of previous multivessel PCI and ICD. RECOMMENDATION: I am recommending that we switch him from IV to subcu heparin, increase activity, increase the metoprolol tartrate to 75 mg b.i.d. and he can be discharged and follow up with his note specialist in the [place] area. I discussed my thoughts in detail with the patient. Thank you very much for the consult. BEATRIZ / CHRISTINEN: [id number] /
[2017-04-12 17:14] LABS: Glucose,Whole Blood 174 mg/dL (75-99)
[2017-04-12 20:10] VITALS: RESP 18
[2017-04-12] MEDS ORDERED: ROSUVASTATIN CALCIUM 40 MG PO SCH (21:00)
[2017-04-12] MEDS ORDERED: ARIPiprazole 15 MG TAB PO SCH (21:00)
[2017-04-12] MEDS ORDERED: PRIMIDONE 50 MG TAB PO SCH (21:00)
[2017-04-12] MEDS ORDERED: PANTOPRAZOLE 40 MG TABLET PO SCH (21:00)
[2017-04-12 21:29] LABS: Glucose,Whole Blood 235 mg/dL (75-99)
[2017-04-13 06:23] LABS: Glucose,Whole Blood 184 mg/dL (75-99)
[2017-04-13] MEDS: INSULIN ASPART 100 UNIT/ML 1 ML 10 ML VIAL SQ SCH (06:30)
[2017-04-13 06:43] LABS: CH 26.1; CHCM 31.6; HCT 38.3 % (39.0-53.0); HDW 2.71; HGB 12.3 gm/dL (13.0-17.5); Hypochromasia Slight; MCH 26.5 pg (25.0-35.0); MCV 82.8 fL (80.0-100.0); Mean Platelet Volume 7.5; RBC 4.63 m/uL (4.30-5.90); RDW 15.9 % (11.5-15.5); WBC 5.3 k/uL (3.8-10.6)
[2017-04-13 07:03] LABS: Anion Gap 9 mmol/L; Blood Urea Nitrogen 20 mg/dL (9-20); Calcium 9.3 mg/dL (8.4-10.2); Carbon Dioxide 23 mmol/L (22-30); Chloride 105 mmol/L (98-107); Cholesterol 182 mg/dL (<200); Glucose 210 mg/dL (74-99); HDL Cholesterol 36 mg/dL (40-60); Non-African American GFR(MDRD) >60 (>60 ml/min/1.73 sqM); Potassium 4.6 mmol/L (3.5-5.1); Sodium 137 mmol/L (137-145)
[2017-04-13 09:00] VITALS: BP 151/86; PULSE 77; TEMP 97
[2017-04-13] MEDS: ISOSORBIDE MONONITRATE ER 60 MG TAB.ER.24H PO SCH (09:01)
[2017-04-13] MEDS: CHOLECALCIFEROL 1,000 UNIT TAB PO SCH (09:02)
[2017-04-13] MEDS: GABAPENTIN 400 MG CAP PO SCH (09:02)
[2017-04-13] MEDS: PRASUGREL 10 MG TAB PO SCH (09:02)
[2017-04-13] MEDS: RANOLAZINE 500 MG TAB.ER.12H PO SCH (09:02)
[2017-04-13] MEDS: ASPIRIN 81 MG PO SCH (09:03)
[2017-04-13] MEDS: hydrALAZINE HCL 25 MG TAB PO SCH (09:03)
[2017-04-13] MEDS: METOPROLOL TARTRATE 50 MG TAB PO SCH (09:03)
[2017-04-13] MEDS: SERTRALINE 100 MG TAB PO SCH (09:03)
--- NOTE | 2017-04-13 10:53 | P.DS ---
Providers Date of admission: 04/11/17 19:11 Expected date of discharge: 04/13/17 Attending physician: David Wellington MD Consults: 04/11/17 21:58 Consult Physician Routine Consulting Provider: Gerson Dewey Consult Reason/Comments: SD Do you want consulting provider notified?: Yes Primary care physician: Junie New - Discharge Diagnosis(es) (1) CAD (coronary artery disease) Status: Acute (2) Elevated troponin Status: Acute (3) Hyperglycemia Status: Acute (4) Cardiomyopathy Status: Acute (5) HTN (hypertension) Status: Acute (6) Hyperglycemia due to type 2 diabetes mellitus Status: Acute (7) Hyperlipemia Status: Acute Hospital Course: Patient is a 41-year-old male with a history of coronary artery disease status post recent stenting to the circumflex artery in December 2016 for in-stent restenosis, ischemic cardiomyopathy with ejection fraction 40-45% status post AICD placement, and diabetes mellitus type 2 who initially presented to the ER with complaints of chest pain. His initial vital signs showed him to be tachycardic with heart rate of 129 her blood pressure was well- controlled. Initial laboratory analysis demonstrated slight hyponatremia with a sodium of 135, elevated blood sugars with a glucose of 247, and slightly elevated troponin of 0.047. He was admitted as observation for further monitoring and care. His initial EKG was unchanged. He was started on increased dose of metoprolol and Lovenox. He was seen by cardiology who felt that his troponin elevation did not reflect ischemic disease. They recommended discharge home with his recent cardiac cath and follow-up with his outpatient applications developer. Patient denied any firing of his AICD. His heart rate was at her controlled throughout his hospitalization. On day of discharge his heart rate was 77 blood pressure is fairly well controlled at 151/86. His telemetry showed paced rhythm, but no definitive A. fib. Do not have any more episodes of chest pain during his hospitalization. This felt that his chest pain was likely secondary to rapid heart rate. He also reports that he was not feeling well for 2 days ) had decreased oral intake which may have led to slight dehydration elevating his heart rate. He has follow-up scheduled with his applications developer next week. Patient also be noted that his hemoglobin A1c was found to be 10.1. He is on maximal oral therapy plus Trulicity. I have discussed with him the importance of following with his primary care physician regarding further adjustment of his diabetes regimen as he does have a history of suicide attempt with insulin overdose. His LDL is fairly well controlled at 91. His triglycerides were elevated at 277 however this is likely secondary to poor sugar control and this will improve with better blood sugar control. He was discharged home in stable condition. Patient seen and examined at bedside. No recurrent chest pain, no nausea, no shortness of breath. Feeling well. Reports that for 2 days prior he was lying in bed with flulike symptoms consistent with myalgias, chills, nausea, poor oral intake. He then went and exerted himself out shopping. Returned home and discovered he had an elevated heart rate and had developed chest pain. He checked his blood pressure and heart rate several times to nitro and then proceeded to the ER. He reports that he has follow-up scheduled with his applications developer next week and that he can easily follow with his primary care physician regarding his hyperglycemia. Vital signs reviewed and stable. General: non toxic, no distress, appears at stated age Derm: warm, dry Head: atraumatic, normocephalic, symmetric Eyes: EOMI, no lid lag, anicteric sclera Mouth: no lip lesion, mucus membranes moist Cardiovascular: S1S2 reg, no murmur, positive posterior tibial pulse bilateral, Lungs: CTA bilateral, no rhonchi, no rales , no accessory muscle use Abdominal: soft, nontender to palpation, no guarding, no appreciable organomegaly Ext: no gross muscle atrophy, no edema, no contractures Neuro: CN II-XI grossly intact, no focal neuro deficits Psych: Alert, oriented, appropriate affect A total of 25 minutes of time were spent preparing this complex discharge summary . Patient Condition at Discharge: Stable Plan - Discharge Summary New Discharge Prescriptions: New Metoprolol Tartrate [Lopressor] 75 mg PO BID #90 tab Continue Nitroglycerin Sl Tabs [Nitrostat] 0.4 mg SUBLINGUAL Q5M PRN PRN Reason: Chest Pain metFORMIN HCL 1,000 mg PO BID Omeprazole [PriLOSEC] 40 mg PO HS Glimepiride 4 mg PO BID Dulaglutide [Trulicity] 1.5 mg SQ OROZCO Rosuvastatin Calcium 40 mg PO HS Ranolazine [Ranexa] 1,000 mg PO BID Primidone [Mysoline] 100 mg PO HS Prasugrel [Effient] 10 mg PO DAILY tab Loperamide [Imodium] 2 mg PO TID Cholecalciferol (Vitamin D3) [Vitamin D3] 2,000 unit PO DAILY Linagliptin [Tradjenta] 5 mg PO HS Sertraline HCl [Zoloft] 200 mg PO DAILY #28 ARIPiprazole [ARIPiprazole Odt] 15 mg PO HS Albuterol Inhaler [Ventolin Hfa Inhaler] 2 puff INHALATION RT-QID PRN PRN Reason: Shortness Of Breath Gabapentin [Neurontin] 400 mg PO TID hydrALAZINE HCL [Apresoline] 25 mg PO BID #60 tab traMADol HCl [Ultram] 50 mg PO Q8H PRN #30 tab PRN Reason: pain Isosorbide Mononitrate ER [Imdur] 60 mg PO DAILY #30 tab.er.24h Aspirin EC [Ecotrin Low Dose] 81 mg PO DAILY Discontinued Metoprolol Tartrate 50 mg PO BID Discharge Medication List Nitroglycerin Sl Tabs [Nitrostat] 0.4 mg SUBLINGUAL Q5M PRN 10/13/13 [History] metFORMIN HCL 1,000 mg PO BID 07/03/15 [History] Omeprazole [PriLOSEC] 40 mg PO HS 08/13/15 [History] Dulaglutide [Trulicity] 1.5 mg SQ OROZCO 03/10/16 [History] Glimepiride 4 mg PO BID 03/10/16 [History] Rosuvastatin Calcium 40 mg PO HS 05/05/16 [History] Ranolazine [Ranexa] 1,000 mg PO BID 06/09/16 [History] Primidone [Mysoline] 100 mg PO HS 06/30/16 [History] Prasugrel [Effient] 10 mg PO DAILY tab 07/01/16 [Rx] Loperamide [Imodium] 2 mg PO TID 10/20/16 [History] Cholecalciferol (Vitamin D3) [Vitamin D3] 2,000 unit PO DAILY 11/07/16 [History] Linagliptin [Tradjenta] 5 mg PO HS 12/19/16 [History] Sertraline HCl [Zoloft] 200 mg PO DAILY #28 01/27/17 [Rx] ARIPiprazole [ARIPiprazole Odt] 15 mg PO HS 02/14/17 [History] Albuterol Inhaler [Ventolin Hfa Inhaler] 2 puff INHALATION RT-QID PRN 02/14/17 [ History] Gabapentin [Neurontin] 400 mg PO TID 02/24/17 [History] hydrALAZINE HCL [Apresoline] 25 mg PO BID #60 tab 02/26/17 [Rx] traMADol HCl [Ultram] 50 mg PO Q8H PRN #30 tab 02/26/17 [Rx] Isosorbide Mononitrate ER [Imdur] 60 mg PO DAILY #30 tab.er.24h 03/13/17 [Rx] Aspirin EC [Ecotrin Low Dose] 81 mg PO DAILY 04/11/17 [History] Metoprolol Tartrate [Lopressor] 75 mg PO BID #90 tab 04/13/17 [Rx] Follow up Appointment(s)/Referral(s): Junie New MD [Primary Care Provider] - 1-2 days Patient Instructions/Handouts: Chest Pain (DC), Type 2 Diabetes in Adults (DC) Activity/Diet/Wound Care/Special Instructions: Follow-up with Dr. Peres next week. Take medications as prescribed. Take your blood pressure and pulse twice daily and make a log for Dr. Peres Please see Dr. New next week regarding your diabetes. Your hemoglobin A1C is 10.1 and you may need insulin or an additional agent. Please check your blood sugars befor breakfast and then at night and make a log for Dr. New Discharge Disposition: HOME SELF-CARE
[2017-04-13 12:05] LABS: Glucose,Whole Blood 240 mg/dL (75-99)
== END 2017-04-13 13:16 | disposition home or self-care (01) | DRG 309 ==
LOC: EC 17:06 → 6SEL 19:11
PROVIDERS: ADMIT Internal Medicine; ATTEND Internal Medicine
DX: R00.0 Tachycardia, unspecified (principal); I50.22 Chronic systolic (congestive) heart failure; E11.42 Type 2 diabetes mellitus with diabetic polyneuropathy; I25.82 Chronic total occlusion of coronary artery; I11.0 Hypertensive heart disease with heart failure; E83.42 Hypomagnesemia; I25.110 Atherosclerotic heart disease of native coronary artery with unstable angina pectoris; K31.84 Gastroparesis; E11.65 Type 2 diabetes mellitus with hyperglycemia; E11.9 Type 2 diabetes mellitus without complications; K21.9 Gastro-esophageal reflux disease without esophagitis; E78.5 Hyperlipidemia, unspecified; F32.9 Major depressive disorder, single episode, unspecified; F43.10 Post-traumatic stress disorder, unspecified; E11.43 Type 2 diabetes mellitus with diabetic autonomic (poly)neuropathy; G47.30 Sleep apnea, unspecified; I25.5 Ischemic cardiomyopathy; J45.909 Unspecified asthma, uncomplicated; Z86.73 Personal history of transient ischemic attack (TIA), and cerebral infarction without residual deficits; Z87.440 Personal history of urinary (tract) infections; Z95.5 Presence of coronary angioplasty implant and graft; I25.2 Old myocardial infarction; Z87.19 Personal history of other diseases of the digestive system; Z91.5 Personal history of self-harm; Z95.810 Presence of automatic (implantable) cardiac defibrillator; Z87.11 Personal history of peptic ulcer disease; Z83.3 Family history of diabetes mellitus; Z82.49 Family history of ischemic heart disease and other diseases of the circulatory system; Z82.0 Family history of epilepsy and other diseases of the nervous system; Z79.899 Other long term (current) drug therapy; Z79.84 Long term (current) use of oral hypoglycemic drugs; Z86.69 Personal history of other diseases of the nervous system and sense organs; Z90.89 Acquired absence of other organs; Z90.49 Acquired absence of other specified parts of digestive tract; Z79.82 Long term (current) use of aspirin; Z86.14 Personal history of Methicillin resistant Staphylococcus aureus infection
CPT/HCPCS: 36415; 71020; 80048; 80053; 80061; 82550; 82553; 83036; 83735; 83880; 84100; 84484; 85025; 85027; 85610; 85730; 87502; 93005; 94760; 96361; 96365; 96375; 99285

== ENCOUNTER 2017-05-14 21:13 | Observation (INO) | payer MEDICARE, OTHER ==
[2017-05-14 21:21] VITALS: RESP 18
[2017-05-14] MEDS ORDERED: ASPIRIN 325 MG TAB PO STA (21:56)
[2017-05-14 22:11] LABS: Basophils # (A) 0.1 k/uL (0-0.2); Basophils % (A) 1 %; Eosinophils # (A) 0.1 k/uL (0-0.7); Eosinophils % (A) 2 %; HCT 36.9 % (39.0-53.0); HGB 12.3 gm/dL (13.0-17.5); Lymphocytes # (A) 1.6 k/uL (1.0-4.8); Lymphocytes % (A) 31 %; MCH 26.2 pg (25.0-35.0); MCHC 33.3 g/dL (31.0-37.0); MCV 78.7 fL (80.0-100.0); Monocytes # (A) 0.3 k/uL (0-1.0); Monocytes % (A) 5 %; Neutrophils # (A) 3.2 k/uL (1.3-7.7); Neutrophils % (A) 60 %; Platelet Count 262 k/uL (150-450); Poikilocytosis Slight; RBC 4.68 m/uL (4.30-5.90); RDW 14.9 % (11.5-15.5); WBC 5.4 k/uL (3.8-10.6)
[2017-05-14 22:17] LABS: INR 1.1 (<1.2); Prothrombin Time 10.3 sec (9.0-12.0)
--- NOTE | 2017-05-14 22:18 | ED ---
Chest Pain HPI - General Chief Complaint: Chest Pain Stated Complaint: Chest Pain/ HX Heart Pt Time Seen by Provider: 05/14/17 21:26 Source: patient Mode of arrival: wheelchair Limitations: no limitations - History of Present Illness Initial Comments: 41-year-old male with significant past medical history is notable presented for evaluation of chest pain. He has been seeing his doctor supply chain specialist for the last couple months concerning chest pain that he's been having over his AICD. He states that he feels as though it's moving and that it limits the movement of his left arm and shoulder. He was last seen by his cripple chaser Dr. Mcqueen a couple weeks ago and was told to rest his left arm and to take tramadol. Patient states that he hasn't really been resting his left arm and the tramadol hasn't been helping. He presents today because the pain is becoming less and less bearable. He also states that he is having some right parasternal chest pain as well. There is no shortness of breath, fevers, chills, cough, nausea, vomiting. - Related Data Home Medications Medication Instructions Recorded Confirmed Nitroglycerin Sl Tabs [Nitrostat] 0.4 mg SUBLINGUAL Q5M PRN 10/13/13 05/14/17 metFORMIN HCL 1,000 mg PO BID 07/03/15 05/14/17 Omeprazole [PriLOSEC] 40 mg PO HS 08/13/15 05/14/17 Dulaglutide [Trulicity] 1.5 mg SQ OROZCO 03/10/16 05/14/17 Glimepiride 4 mg PO BID 03/10/16 05/14/17 Rosuvastatin Calcium 40 mg PO HS 05/05/16 05/14/17 Ranolazine [Ranexa] 1,000 mg PO BID 06/09/16 05/14/17 Primidone [Mysoline] 100 mg PO HS 06/30/16 05/14/17 Loperamide [Imodium] 2 mg PO TID 10/20/16 05/14/17 Cholecalciferol (Vitamin D3) 2,000 unit PO DAILY 11/07/16 05/14/17 [Vitamin D3] Linagliptin [Tradjenta] 5 mg PO HS 12/19/16 05/14/17 ARIPiprazole [ARIPiprazole Odt] 15 mg PO HS 02/14/17 05/14/17 Albuterol Inhaler [Ventolin Hfa 2 puff INHALATION RT-QID PRN 02/14/17 05/14/17 Inhaler] Gabapentin [Neurontin] 400 mg PO TID 02/24/17 05/14/17 Aspirin EC [Ecotrin Low Dose] 81 mg PO DAILY 04/11/17 05/14/17 Metoprolol Tartrate [Lopressor] 50 mg PO BID 05/14/17 05/14/17 Previous Rx's Medication Instructions Recorded Prasugrel [Effient] 10 mg PO DAILY tab 07/01/16 Sertraline HCl [Zoloft] 200 mg PO DAILY #28 01/27/17 hydrALAZINE HCL [Apresoline] 25 mg PO BID #60 tab 02/26/17 traMADol HCl [Ultram] 50 mg PO Q8H PRN #30 tab 02/26/17 Isosorbide Mononitrate ER [Imdur] 60 mg PO DAILY #30 tab.er.24h 03/13/17 Allergies Allergy/AdvReac Type Severity Reaction Status Date / Time erythromycin base Allergy Severe Swelling Verified 05/14/17 22:05 [Erythromycin Base] codeine Allergy Unknown Swelling Verified 05/14/17 22:05 meclizine Allergy Unknown Unknown Verified 05/14/17 22:05 Penicillins Allergy Unknown Rash/Hives Verified 05/14/17 22:05 shellfish derived Allergy Unknown Anaphylaxis Verified 05/14/17 22:05 Fish Containing Products Allergy Anaphylaxis Verified 05/14/17 22:05 [Fish] Iodinated Contrast- Oral and Allergy Anaphylaxis Verified 05/14/17 22:05 IV Dye cephalexin monohydrate AdvReac Unknown Nausea & Verified 05/14/17 22:05 [From Keflex] Vomiting naproxen AdvReac Unknown Compromises Verified 05/14/17 22:05 Kidney Function atorvastatin calcium AdvReac Myalgia Verified 05/14/17 22:05 [From Lipitor] hydrocodone [From Circle] AdvReac Rapid Verified 05/14/17 22:05 Heart Rate Review of Systems ROS Statement: Those systems with pertinent positive or pertinent negative responses have been documented in the HPI. ROS Other: All systems not noted in ROS Statement are negative. Constitutional: Denies: fever, chills, weakness Eyes: Denies: eye pain, eye discharge ENT: Denies: ear pain, throat pain Respiratory: Denies: cough, dyspnea, wheezes, hemoptysis Cardiovascular: Reports: chest pain. Denies: palpitations, dyspnea on exertion , orthopnea, edema Endocrine: Denies: fatigue, polydipsia, polyuria Gastrointestinal: Denies: abdominal pain, nausea, vomiting, diarrhea Genitourinary: Denies: urgency, dysuria Musculoskeletal: Denies: back pain, arthralgia, myalgia Skin: Denies: rash, lesions Neurological: Denies: headache, weakness, numbness Psychiatric: Denies: anxiety, depression Hematological/Lymphatic: Denies: easy bleeding, easy bruising EKG Findings - EKG Comments: EKG Findings:: M sinus rhythm with right axis deviation and a ventricular rate of 88, SANDY 156, QRS 116, QT/QTC 370/447. Past Medical History Past Medical History: Asthma, Coronary Artery Disease (CAD), Chest Pain / Angina , Heart Failure, CVA/TIA, Diabetes Mellitus, GERD/Reflux, Hyperlipidemia, Hypertension, Myocardial Infarction ([place]), Osteoarthritis (OA), Pneumonia, Skin Disorder, Sleep Apnea/CPAP/BIPAP Additional Past Medical History / Comment(s): Coronary artery disease with multiple vessel disease, ischemic cardiomyopathy, diabetic neuropathy bilateral hands and feet, hypertensive cardiovascular disease, chronic gastritis, degenerative disc disease, chronic back pain, depression with hx of suicide attempts, GASTROPARESIS, PSORIASES,NIDDM type II, UTI, migraines, TIA, PUD, hiatal hernia, L rotator cuff tear, bronchitis, pseudoaneurysm L groin post procedure. Last Myocardial Infarction Date:: december 2016 History of Any Multi-Drug Resistant Organisms: MRSA Date of last positivie culture/infection: 06/09/16 MDRO Source:: face Past Surgical History: AICD, Appendectomy, Cholecystectomy, Heart Catheterization With Stent, Hernia Repair Additional Past Surgical History / Comment(s): Pt has had multiple cardiac procedures-caths/PTCA/stenting with last stent placed at 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 Past Anesthesia/Blood Transfusion Reactions: No Reported Reaction Additional Past Anesthesia/Blood Transfusion Reaction / Comment(s): . Date of Last Stent Placement:: 12/23/16 Type of Cardiac Device: Biventricular Pacemaker, AICD Device Placement Date:: 09/19/15 Past Psychological History: Anxiety, Depression, PTSD Smoking Status: Never smoker Past Alcohol Use History: None Reported Past Drug Use History: None Reported - Past Family History Mother Family Medical History: Coronary Artery Disease (CAD), Myocardial Infarction ([place] ) Additional Family Medical History / Comment(s): 7 [place] and faulty heart valve. Pt does not know the age when mother had her MIs. Father History Unknown: Yes Additional Family Medical History / Comment(s): Does not know who father is Brother(s) Family Medical History: Congestive Heart Failure (CHF), Myocardial Infarction ( [place]) Additional Family Medical History / Comment(s): Parkinsons. Pt does not know at what age his brother had a [place] Patient has Family Medical History: No Reported History Additional Family Medical History / Comment(s): There is a strong family history for heart disease, hypertension, and diabetes. General Exam Limitations: no limitations General appearance: alert, in no apparent distress Head exam: Present: atraumatic, normocephalic, normal inspection Eye exam: Present: normal appearance, PERRL, EOMI. Absent: scleral icterus, conjunctival injection, periorbital swelling ENT exam: Present: normal exam, mucous membranes moist Neck exam: Present: normal inspection. Absent: tenderness, meningismus, lymphadenopathy Respiratory exam: Present: normal lung sounds bilaterally, chest wall tenderness. Absent: respiratory distress, wheezes, rales, rhonchi, stridor Cardiovascular Exam: Present: regular rate, normal rhythm, normal heart sounds, other (Tenderness to palpation over AICD.). Absent: systolic murmur, diastolic murmur, rubs, gallop, clicks GI/Abdominal exam: Present: soft, normal bowel sounds. Absent: distended, tenderness, guarding, rebound, rigid Rectal exam: Present: deferred Extremities exam: Present: normal inspection, full ROM, normal capillary refill. Absent: tenderness, pedal edema, joint swelling, calf tenderness Back exam: Present: normal inspection, full ROM Neurological exam: Present: alert, oriented X3, CN II-XII intact Psychiatric exam: Present: normal affect, normal mood Skin exam: Present: warm, dry, intact, normal color. Absent: rash Course Vital Signs 12/21/17 12/21/17 12/22/17 21:18 23:59 00:03 Temperature 97.8 F 96.8 F L Pulse Rate 87 70 Pulse Rate [ 79 Pulse Oximetery ] Respiratory 18 18 18 Rate Blood Pressure 140/72 150/74 Blood Pressure 144/80 [Right Arm] O2 Sat by Pulse 99 99 99 Oximetry Chest Pain MDM - MDM 41-year-old male with past medical history as noted above presented for evaluation of pain over his AICD and inside out. He also states right- sided parasternal chest pain as well. On physical examination he has tenderness over the AICD however there is no overlying erythema, induration, crepitus, or subcutaneous emphysema. Lungs are clear to auscultation bilaterally and the remainder of his physical exam is benign. We'll obtain chest x-ray, EKG, labs, and provide aspirin and pain control. Pt condition discussed with EP Dr. Mcqueen who stated he had seen the patient recently and that if all labs were within normal limits he could follow up as an outpatient. Labs reveal a mildly elevated troponin of 0.047 however. Otherwise his labs revealed no significant abnormalities. Chest x-ray shows no acute intrathoracic abnormalities. On repeat physical exam he continues to have pain. He was informed of all results and agreed with plan to admit for further treatment and evaluation. Discussed results with DR. Wellington who accepted admission without further request. Admission order placed and bed request submitted. Disposition Clinical Impression: Elevated troponin, Chest pain Disposition: ADMITTED IP TO THIS [facility] Referrals: Junie New MD [Primary Care Provider] - 1-2 days Decision to Admit Reason: Admit from EC Decision Date: 05/14/17 Decision Time: 23:52
[2017-05-14 22:21] LABS: Anion Gap 10 mmol/L; Blood Urea Nitrogen 25 mg/dL (9-20); Calcium 9.6 mg/dL (8.4-10.2); Carbon Dioxide 25 mmol/L (22-30); Chloride 100 mmol/L (98-107); Glucose 227 mg/dL (74-99); Sodium 135 mmol/L (137-145)
[2017-05-14] MEDS ORDERED: HYDROcodone/APAP 5-325MG 1 EACH TAB PO STA (22:22)
[2017-05-14] MEDS ORDERED: KETOROLAC 30 MG/ML 1 ML VIAL IVP STA (22:27)
--- NOTE | 2017-05-14 22:27 | XR ---
EXAM: XR Chest, 2 Views CLINICAL HISTORY: Reason: Chest pain TECHNIQUE: Frontal and lateral views of the chest. COMPARISON: 04/11/17, 04/05/17 chest radiographs. FINDINGS: Lungs: Stable. No focal infiltrate. Pleural space: Stable. No effusion or pneumothorax. Heart: There is again coronary artery calcification and/or stent. Mediastinum: Stable. Bones/joints: Stable. Tubes, lines and devices: Again seen is left-sided pacemaker/defibrillator with 3 leads, unchanged. Upper abdomen: Right upper quadrant clips suggest prior cholecystectomy. IMPRESSION: No significant change. No new acute intrathoracic abnormality is seen.
[2017-05-14 22:31] LABS: Potassium 4.5 mmol/L (3.5-5.1)
[2017-05-14] MEDS ORDERED: HYDROmorphone 1 MG/ML 1 ML SYRINGE IV PRN (23:49)
[2017-05-14] MEDS ORDERED: ACETAMINOPHEN TAB 325 MG TAB PO PRN (23:49)
[2017-05-14] MEDS ORDERED: oxyCODONE-APAP 5-325MG 1 EACH TAB PO PRN (23:49)
[2017-05-14] MEDS ORDERED: traMADol 50 MG TAB PO PRN (23:52)
[2017-05-14] MEDS ORDERED: HYDROmorphone 1 MG/ML 1 ML SYRINGE IVP STA (23:52)
[2017-05-14] MEDS ORDERED: ALBUTEROL NEBULIZED 2.5 MG/3 ML INHALATION PRN (23:52)
[2017-05-14] MEDS ORDERED: NITROGLYCERIN SL TABS 0.4 MG TAB SUBLINGUAL PRN (23:52)
--- NOTE | 2017-05-15 00:09 | P.HPIM ---
History of Present Illness H&P Date: 05/14/17 Chief Complaint: Chest pain 41-year-old male with history of CAD, recent stenting in December of the circumflex artery for in-stent restenosis, ischemic cardiomyopathy EF 40-45% with AICD placement, diabetes mellitus II, hypertension, hyperlipidemia, gastroesophageal reflux disease, sleep apnea and TIA. He follows regularly with a medicaid nurse out of [place], Dr. Peres. Patient presented to the emergency department because of constant chest pain that has been over the last couple of months. The pain is mainly located over the pacemaker/defibrillator site. He saw his medicaid nurse about 2 weeks ago for that pain and he was given some instructions to not move his left arm above his shoulder level and to put a sling on his left shoulder while he sleeps. The pain has been worsening especially over the last several days/weeks, has been becoming constant and severe. Currently the pain is 9 out of 10 in severity. It gets worse when he moves his left arm in any direction especially if he moves above the shoulder. Today he had a brief episode of burning located at the center of his chest and that was distinctive from the pain over the defibrillator. He did complain from chronic shortness of breath as well but nothing has changed in that regard. No nausea or vomiting, no fevers or chills. No recent illness. No cough. When he was given nitroglycerin in the emergency department the chest burning subsided but he continued to have pain over the defibrillator. Review of Systems 12 point review of system was performed, negative except per HPI Past Medical History Past Medical History: Asthma, Coronary Artery Disease (CAD), Chest Pain / Angina , Heart Failure, CVA/TIA, Diabetes Mellitus, GERD/Reflux, Hyperlipidemia, Hypertension, Myocardial Infarction ([place]), Osteoarthritis (OA), Pneumonia, Skin Disorder, Sleep Apnea/CPAP/BIPAP Additional Past Medical History / Comment(s): Coronary artery disease with multiple vessel disease, ischemic cardiomyopathy, diabetic neuropathy bilateral hands and feet, hypertensive cardiovascular disease, chronic gastritis, degenerative disc disease, chronic back pain, depression with hx of suicide attempts, GASTROPARESIS, PSORIASES,NIDDM type II, UTI, migraines, TIA, PUD, hiatal hernia, L rotator cuff tear, bronchitis, pseudoaneurysm L groin post procedure. 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 Past Anesthesia/Blood Transfusion Reactions: No Reported Reaction Additional Past Anesthesia/Blood Transfusion Reaction / Comment(s): . Date of Last Stent Placement:: 12/23/16 Type of Cardiac Device: Biventricular Pacemaker, AICD Device Placement Date:: 09/19/15 Past Psychological History: Anxiety, Depression, PTSD Smoking Status: Never smoker Past Alcohol Use History: None Reported Past Drug Use History: None Reported - Past Family History Mother Family Medical History: Coronary Artery Disease (CAD), Myocardial Infarction ([place] ) Additional Family Medical History / Comment(s): 7 [place] and faulty heart valve. Pt does not know the age when mother had her MIs. Father History Unknown: Yes Additional Family Medical History / Comment(s): Does not know who father is Brother(s) Family Medical History: Congestive Heart Failure (CHF), Myocardial Infarction ( [place]) Additional Family Medical History / Comment(s): Parkinsons. Pt does not know at what age his brother had a [place] Patient has Family Medical History: No Reported History Additional Family Medical History / Comment(s): There is a strong family history for heart disease, hypertension, and diabetes. Medications and Allergies Home Medications Medication Instructions Recorded Confirmed Type Nitroglycerin Sl Tabs [Nitrostat] 0.4 mg SUBLINGUAL Q5M PRN 10/13/13 05/14/17 History metFORMIN HCL 1,000 mg PO BID 07/03/15 05/14/17 History Omeprazole [PriLOSEC] 40 mg PO HS 08/13/15 05/14/17 History Dulaglutide [Trulicity] 1.5 mg SQ OROZCO 03/10/16 05/14/17 History Glimepiride 4 mg PO BID 03/10/16 05/14/17 History Rosuvastatin Calcium 40 mg PO HS 05/05/16 05/14/17 History Ranolazine [Ranexa] 1,000 mg PO BID 06/09/16 05/14/17 History Primidone [Mysoline] 100 mg PO HS 06/30/16 05/14/17 History Prasugrel [Effient] 10 mg PO DAILY tab 07/01/16 05/14/17 Rx Loperamide [Imodium] 2 mg PO TID 10/20/16 05/14/17 History Cholecalciferol (Vitamin D3) 2,000 unit PO DAILY 11/07/16 05/14/17 History [Vitamin D3] Linagliptin [Tradjenta] 5 mg PO HS 12/19/16 05/14/17 History Sertraline HCl [Zoloft] 200 mg PO DAILY #28 01/27/17 05/14/17 Rx ARIPiprazole [ARIPiprazole Odt] 15 mg PO HS 02/14/17 05/14/17 History Albuterol Inhaler [Ventolin Hfa 2 puff INHALATION RT-QID PRN 02/14/17 05/14/17 History Inhaler] Gabapentin [Neurontin] 400 mg PO TID 02/24/17 05/14/17 History hydrALAZINE HCL [Apresoline] 25 mg PO BID #60 tab 02/26/17 05/14/17 Rx traMADol HCl [Ultram] 50 mg PO Q8H PRN #30 tab 02/26/17 05/14/17 Rx Isosorbide Mononitrate ER [Imdur] 60 mg PO DAILY #30 tab.er.24h 03/13/17 Rx Aspirin EC [Ecotrin Low Dose] 81 mg PO DAILY 04/11/17 05/14/17 History Metoprolol Tartrate [Lopressor] 50 mg PO BID 05/14/17 05/14/17 History Allergies Allergy/AdvReac Type Severity Reaction Status Date / Time erythromycin base Allergy Severe Swelling Verified 05/14/17 22:05 [Erythromycin Base] codeine Allergy Unknown Swelling Verified 05/14/17 22:05 meclizine Allergy Unknown Unknown Verified 05/14/17 22:05 Penicillins Allergy Unknown Rash/Hives Verified 05/14/17 22:05 shellfish derived Allergy Unknown Anaphylaxis Verified 05/14/17 22:05 Fish Containing Products Allergy Anaphylaxis Verified 05/14/17 22:05 [Fish] Iodinated Contrast- Oral and Allergy Anaphylaxis Verified 05/14/17 22:05 IV Dye cephalexin monohydrate AdvReac Unknown Nausea & Verified 05/14/17 22:05 [From Keflex] Vomiting naproxen AdvReac Unknown Compromises Verified 05/14/17 22:05 Kidney Function atorvastatin calcium AdvReac Myalgia Verified 05/14/17 22:05 [From Lipitor] hydrocodone [From [place]] AdvReac Rapid Verified 05/14/17 22:05 Heart Rate Physical Exam Vitals: Vital Signs Temp Pulse Resp BP Pulse Ox 05/14/17 21:18 97.8 F 87 18 140/72 99 Intake and Output 05/14/17 05/14/17 05/15/17 14:59 22:59 06:59 Other: Weight 113.398 kg Patient Weight 05/15/17 06:59 Weight 113.398 kg Constitutional: No acute distress, conversant, pleasant Eyes:Anicteric sclerae, moist conjunctiva, no lid-lag, PERRLA, ENMT: Oropharynx clear, no erythema, exudates Neck: Supple, FROM, no masses, or JVD, No carotid bruits, No thyromegaly Lungs: There is some erythema over the defibrillator site. The site is very tender to touch. Clear to auscultation, Clear to percussion, Normal respiratory effort, no accessory muscle use Cardiovascular: Heart regular in rate and rhythm, No murmurs, gallops, or rubs, No peripheral edema Abdominal: Soft, Nontender, no guarding, rebound or rigidity, Normoactive bowel sounds, No hepatomegaly, No splenomegaly, No palpable mass Skin: Normal temperature, tone, texture, turgor, no induration, No subcutaneous nodules, No rash, lesions, No ulcers Extremities: No digital cyanosis, No clubbing, Pedal pulses intact and symmetrical, Radial pulses intact and symmetrical, No calf tenderness Psychiatric: Alert and oriented to person, place and time, appropriate affect, intact judgement Neuro: Muscles Strength 5/5 in all 4 extremities, Sensation to light touch grossly present throughout, Cranial nerves II-XII grossly intact, no focal sensory deficits Results CBC & Chem 7: 05/14/17 21:56 05/14/17 21:56 Labs: Abnormal Lab Results - Last 24 Hours (Table) 05/14/17 05/14/17 05/14/17 Range/Units 21:56 21:56 21:56 Hgb 12.3 L (13.0-17.5) gm/dL Hct 36.9 L (39.0-53.0) % MCV 78.7 L (80.0-100.0) fL Sodium 135 L (137-145) mmol/L BUN 25 H (9-20) mg/dL Glucose 227 H (74-99) mg/dL Troponin I 0.047 H* (0.000-0.034) ng/mL Assessment and Plan Plan: #1 Acute chest pain: Rule out acute coronary syndrome especially with history of coronary artery disease Labs and EKG reviewed Troponin slightly elevated blood level is the same as it was as last month Admit to selective care on telemetry Consults electrophysiology Rule out infection at the defibrillator site, we will leave that judgment to the platform engineer. Cycle troponins Nitroglycerin, tramadol and Dilaudid for pain #2 Type 2 diabetes: Hold oral hypoglycemic Start Lantus 10 units daily Sliding scale insulin with blood sugars check every before meals and at bedtime #3 Asthma, history of heart Failure, history of CVA/TIA, GERD/Reflux, Hyperlipidemia, benign Hypertension, Osteoarthritis ([place]), Sleep Apnea/CPAP/BIPAP : All stable Continue all medications #4 DVT prophylaxis: Ambulatory, low risk
[2017-05-15 00:30] VITALS: BMI 40.7
[2017-05-15 04:49] VITALS: BP 124/78; PULSE 71; TEMP 97.1
[2017-05-15 05:50] LABS: Anisocytosis Slight; Basophils % (A) 1 %; Eosinophils # (A) 0.1 k/uL (0-0.7); Eosinophils % (A) 3 %; HCT 36.7 % (39.0-53.0); HGB 12.2 gm/dL (13.0-17.5); Lymphocytes # (A) 1.8 k/uL (1.0-4.8); Lymphocytes % (A) 35 %; MCH 26.4 pg (25.0-35.0); MCHC 33.1 g/dL (31.0-37.0); MCV 79.8 fL (80.0-100.0); Mean Platelet Volume 7.8; Monocytes # (A) 0.2 k/uL (0-1.0); Monocytes % (A) 5 %; Neutrophils # (A) 2.9 k/uL (1.3-7.7); Neutrophils % (A) 56 %; Platelet Count 219 k/uL (150-450); RDW 16.4 % (11.5-15.5); WBC 5.3 k/uL (3.8-10.6)
[2017-05-15 06:00] LABS: ALT 36 U/L (21-72); AST 18 U/L (17-59); Albumin 3.8 g/dL (3.5-5.0); Alkaline Phosphatase 88 U/L (38-126); Anion Gap 10 mmol/L; Blood Urea Nitrogen 27 mg/dL (9-20); Calcium 9.6 mg/dL (8.4-10.2); Carbon Dioxide 26 mmol/L (22-30); Chloride 101 mmol/L (98-107); Glucose 152 mg/dL (74-99); Magnesium 1.7 mg/dL (1.6-2.3); Phosphorus 5.3 mg/dL (2.5-4.5); Potassium 4.3 mmol/L (3.5-5.1); Sodium 137 mmol/L (137-145); Total Bilirubin 0.4 mg/dL (0.2-1.3); Total Protein 6.2 g/dL (6.3-8.2)
[2017-05-15 06:01] LABS: Glucose,Whole Blood 153 mg/dL (75-99)
[2017-05-15] MEDS ORDERED: INSULIN ASPART 100 UNIT/ML 1 ML 10 ML VIAL SQ SCH (07:30)
[2017-05-15] MEDS ORDERED: LOPERAMIDE 2 MG CAP ONE (09:00)
[2017-05-15] MEDS ORDERED: METOPROLOL TARTRATE 50 MG TAB ONE (09:00)
[2017-05-15] MEDS ORDERED: CHOLECALCIFEROL 1,000 UNIT TAB PO SCH (09:00)
[2017-05-15] MEDS ORDERED: LOPERAMIDE 2 MG CAP PO SCH (09:00)
[2017-05-15] MEDS ORDERED: hydrALAZINE HCL 25 MG TAB ONE (09:00)
[2017-05-15] MEDS ORDERED: SERTRALINE 100 MG TAB PO SCH (09:00)
[2017-05-15] MEDS ORDERED: METOPROLOL TARTRATE 50 MG TAB PO SCH (09:00)
[2017-05-15] MEDS ORDERED: GABAPENTIN 400 MG CAP ONE (09:00)
[2017-05-15] MEDS ORDERED: hydrALAZINE HCL 25 MG TAB PO SCH (09:00)
[2017-05-15] MEDS ORDERED: RANOLAZINE 500 MG TAB.ER.12H PO ONE (09:00)
[2017-05-15] MEDS ORDERED: ASPIRIN 81 MG PO SCH (09:00)
[2017-05-15] MEDS ORDERED: INSULIN ASPART 100 UNIT/ML 1 ML 10 ML VIAL SQ ONE (09:00)
[2017-05-15] MEDS ORDERED: RANOLAZINE 500 MG TAB.ER.12H PO SCH (09:00)
[2017-05-15] MEDS ORDERED: PRASUGREL 10 MG TAB PO SCH (09:00)
[2017-05-15] MEDS ORDERED: ISOSORBIDE MONONITRATE ER 30 MG TAB.ER.24H PO ONE (09:00)
[2017-05-15] MEDS ORDERED: SERTRALINE 100 MG TAB ONE (09:00)
[2017-05-15] MEDS ORDERED: CHOLECALCIFEROL 1,000 UNIT TAB ONE (09:00)
[2017-05-15] MEDS ORDERED: GABAPENTIN 400 MG CAP PO SCH (09:00)
[2017-05-15] MEDS ORDERED: PRASUGREL 10 MG TAB ONE (09:00)
[2017-05-15] MEDS ORDERED: ASPIRIN 81 MG ONE (09:00)
[2017-05-15] MEDS ORDERED: INSULIN DETEMIR 100 UNIT/ML 10 ML VIAL SQ SCH (09:00)
[2017-05-15] MEDS ORDERED: INSULIN DETEMIR 100 UNIT/ML 10 ML VIAL SQ ONE (09:00)
[2017-05-15] MEDS ORDERED: ISOSORBIDE MONONITRATE ER 60 MG TAB.ER.24H PO SCH (09:00)
[2017-05-15] MEDS ORDERED: PANTOPRAZOLE 40 MG TABLET PO SCH (21:00)
[2017-05-15] MEDS ORDERED: ARIPiprazole 15 MG TAB PO SCH (21:00)
[2017-05-15] MEDS ORDERED: PRIMIDONE 50 MG TAB PO SCH (21:00)
[2017-05-15] MEDS ORDERED: ROSUVASTATIN CALCIUM 40 MG PO SCH (21:00)
--- NOTE | 2017-05-15 22:53 | CONS ---
CONSULTATION CHIEF COMPLAINT: Chest pain. HISTORY OF PRESENT ILLNESS: Ti is a 41-year-old gentleman with history of cardiomyopathy status post AICD, who regularly follows with a tow car driver and ends breakage clerk in [facility] and has known coronary artery disease and has had prior angioplasty, has hypertension, dyslipidemia, and ischemic cardiomyopathy. He comes in complaining of chest discomfort mainly over the pacer defibrillator site that has been going on for the last 2 months and had been seen by his tow car driver already for this. The patient primarily came to the ER to have better control of his musculoskeletal pain as he thinks that the tramadol that he is currently taking is not working. The troponin are in the gary zone for which Cardiology has been consulted and patient is admitted. The patient's chest discomfort is noncardiac in origin. It is clearly musculoskeletal and he has had it for the last 2 months. Troponin elevation is of unclear clinical significance. The patient does not require further cardiac evaluation at this time for ischemic heart disease. PAST MEDICAL HISTORY: Significant for coronary artery disease, status post angioplasty, hypertension, dyslipidemia, diabetes, osteoarthritis, sleep apnea. PAST SURGICAL HISTORY: Significant for appendectomy, cholecystectomy, hernia repair, and AICD. The patient had inguinal and an umbilical hernia repair. REVIEW OF SYSTEMS: 05/05 review of systems has been performed. Pertinent for as documented. SOCIAL HISTORY: Is unremarkable. Negative for smoking, EtOH abuse, or drug abuse. FAMILY HISTORY: Negative. PHYSICAL EXAMINATION: On exam, he appears comfortable at rest. Vital signs are stable. There is no jugular venous distention. Chest exam reveals good air entry bilaterally. Heart exam reveals first and second heart sounds. No gallop. Abdomen is soft. Exam of the extremities did not reveal any edema. Peripheral pulses are felt. ALLERGIES: He has multiple drug allergies. They are charted and I have reviewed them. MEDICATIONS: Medications he is on Prilosec, Trulicity, Glyburide, Ranexa, Mysoline, Effient, Imodium, Tradjenta, Zoloft, Ventolin, Neurontin, Apresoline, Ultram, Imdur, aspirin and metoprolol. PHYSICAL EXAM: Comfortable at rest. Vital signs are stable. There is no jugular venous distention. Carotid upstroke is normal. There is no bruit. Chest exam reveals good air entry bilaterally. Heart exam reveals first and second heart sounds. No gallop. Abdomen is soft. Exam of the extremities did not reveal any edema. Peripheral pulses are felt. LABS: Showed that the hemoglobin is normal at 12.2, white cell count is normal. Potassium is 4.3. BNP is within normal limits. Troponin is in the gary zone and of unclear significance. ASSESSMENT: 1. Nonspecific chest pain, probably musculoskeletal. 2. History of coronary artery disease status post angioplasty. 3. History of cardiomyopathy status post AICD. 4. Elevated troponin of unclear clinical significance in a patient who does not have angina or chest pain suggestive of ischemia. PLAN: Please control patient's pain. He is stable to be discharged home. Arrange follow up with his own tow car driver and ends breakage clerk. Thank you for letting us participate in the care of this pleasant gentleman. MMODL / IJN: [id number] /
[2017-05-16 02:54] LABS: Glucose,Whole Blood 259 mg/dL (75-99)
[2017-05-16 02:55] LABS: Glucose,Whole Blood 205 mg/dL (75-99)
--- NOTE | 2017-05-19 11:55 | P.DS ---
Providers Date of admission: 05/14/17 23:52 Expected date of discharge: 05/15/17 Attending physician: David Wellington MD Consults: 05/14/17 23:47 Consult Physician Routine Consulting Provider: Ray Kang Consult Reason/Comments: defibrillator site pain Do you want consulting provider notified?: Yes, Notify in am Primary care physician: Junie New - Discharge Diagnosis(es) (1) Chest wall pain Status: Acute (2) Elevated troponin Status: Acute (3) History of implantable cardioverter-defibrillator (ICD) placement Status: Acute (4) Ischemic cardiomyopathy Status: Acute Hospital Course: The patient is a 41 -year-old male that was admitted for chest wall pain likely musculoskeletal but was placed on observation secondary to his profound cardiac history which includes ischemic cardiomyopathy status post AICD placement, known history of coronary artery disease as had history of prior angioplasty, history of hypertension. The patient was found to have elevated troponin but no signs of acute ischemia on his EKG, the patient has been seen previously for this by his primary mechanism inspector and cardiology here, Dr. Barney was consulted and he agreed that the patient symptoms was likely muscle skeletal as use complain of pain around his pacer/defibrillator site. He continues to have a chronic elevation of his troponin described as on known significance by cardiology. The patient was cleared by cardiology for discharge and recommendations a follow-up with his primary mechanism inspector. Discharge process took less than 30 minutes Plan - Discharge Summary Discharge Rx Participant: No New Discharge Prescriptions: No Action Nitroglycerin Sl Tabs [Nitrostat] 0.4 mg SUBLINGUAL Q5M PRN PRN Reason: Chest Pain metFORMIN HCL 1,000 mg PO BID Omeprazole [PriLOSEC] 40 mg PO HS Glimepiride 4 mg PO BID Dulaglutide [Trulicity] 1.5 mg SQ OROZCO Rosuvastatin Calcium 40 mg PO HS Ranolazine [Ranexa] 1,000 mg PO BID Primidone [Mysoline] 100 mg PO HS Prasugrel [Effient] 10 mg PO DAILY tab Loperamide [Imodium] 2 mg PO TID Cholecalciferol (Vitamin D3) [Vitamin D3] 2,000 unit PO DAILY Linagliptin [Tradjenta] 5 mg PO HS Sertraline HCl [Zoloft] 200 mg PO DAILY #28 ARIPiprazole [ARIPiprazole Odt] 15 mg PO HS Albuterol Inhaler [Ventolin Hfa Inhaler] 2 puff INHALATION RT-QID PRN PRN Reason: Shortness Of Breath Gabapentin [Neurontin] 400 mg PO TID hydrALAZINE HCL [Apresoline] 25 mg PO BID #60 tab traMADol HCl [Ultram] 50 mg PO Q8H PRN #30 tab PRN Reason: pain Isosorbide Mononitrate ER [Imdur] 60 mg PO DAILY #30 tab.er.24h Aspirin EC [Ecotrin Low Dose] 81 mg PO DAILY Metoprolol Tartrate [Lopressor] 50 mg PO BID Discharge Medication List Nitroglycerin Sl Tabs [Nitrostat] 0.4 mg SUBLINGUAL Q5M PRN 10/13/13 [History] metFORMIN HCL 1,000 mg PO BID 07/03/15 [History] Omeprazole [PriLOSEC] 40 mg PO HS 08/13/15 [History] Dulaglutide [Trulicity] 1.5 mg SQ OROZCO 03/10/16 [History] Glimepiride 4 mg PO BID 03/10/16 [History] Rosuvastatin Calcium 40 mg PO HS 05/05/16 [History] Ranolazine [Ranexa] 1,000 mg PO BID 06/09/16 [History] Primidone [Mysoline] 100 mg PO HS 06/30/16 [History] Prasugrel [Effient] 10 mg PO DAILY tab 07/01/16 [Rx] Loperamide [Imodium] 2 mg PO TID 10/20/16 [History] Cholecalciferol (Vitamin D3) [Vitamin D3] 2,000 unit PO DAILY 11/07/16 [History] Linagliptin [Tradjenta] 5 mg PO HS 12/19/16 [History] Sertraline HCl [Zoloft] 200 mg PO DAILY #28 01/27/17 [Rx] ARIPiprazole [ARIPiprazole Odt] 15 mg PO HS 02/14/17 [History] Albuterol Inhaler [Ventolin Hfa Inhaler] 2 puff INHALATION RT-QID PRN 02/14/17 [ History] Gabapentin [Neurontin] 400 mg PO TID 02/24/17 [History] hydrALAZINE HCL [Apresoline] 25 mg PO BID #60 tab 02/26/17 [Rx] traMADol HCl [Ultram] 50 mg PO Q8H PRN #30 tab 02/26/17 [Rx] Isosorbide Mononitrate ER [Imdur] 60 mg PO DAILY #30 tab.er.24h 03/13/17 [Rx] Aspirin EC [Ecotrin Low Dose] 81 mg PO DAILY 04/11/17 [History] Metoprolol Tartrate [Lopressor] 50 mg PO BID 05/14/17 [History] Follow up Appointment(s)/Referral(s): Junie New MD [Primary Care Provider] - 1-2 days Discharge Disposition: HOME SELF-CARE
== END 2017-05-15 18:30 | disposition home or self-care (01) ==
LOC: EC 21:13 → 6SEL 23:52
PROVIDERS: ADMIT Internal Medicine; ATTEND Internal Medicine
DX: R07.89 Other chest pain (principal); R74.8 Abnormal levels of other serum enzymes; Z95.810 Presence of automatic (implantable) cardiac defibrillator; I25.5 Ischemic cardiomyopathy; I25.10 Atherosclerotic heart disease of native coronary artery without angina pectoris; G47.30 Sleep apnea, unspecified; E78.5 Hyperlipidemia, unspecified; M19.90 Unspecified osteoarthritis, unspecified site; M79.1 Myalgia; Z86.73 Personal history of transient ischemic attack (TIA), and cerebral infarction without residual deficits; K21.9 Gastro-esophageal reflux disease without esophagitis; J45.909 Unspecified asthma, uncomplicated; I50.9 Heart failure, unspecified; I11.0 Hypertensive heart disease with heart failure; Z99.89 Dependence on other enabling machines and devices; Z79.4 Long term (current) use of insulin; Z88.8 Allergy status to other drugs, medicaments and biological substances; Z88.1 Allergy status to other antibiotic agents; Z91.041 Radiographic dye allergy status; Z88.5 Allergy status to narcotic agent; Z88.0 Allergy status to penicillin; Z91.013 Allergy to seafood; F43.10 Post-traumatic stress disorder, unspecified; F32.9 Major depressive disorder, single episode, unspecified; F41.9 Anxiety disorder, unspecified; Z95.5 Presence of coronary angioplasty implant and graft; I25.2 Old myocardial infarction; Z86.14 Personal history of Methicillin resistant Staphylococcus aureus infection; Z91.5 Personal history of self-harm; K31.84 Gastroparesis; E11.43 Type 2 diabetes mellitus with diabetic autonomic (poly)neuropathy; M54.9 Dorsalgia, unspecified; G89.29 Other chronic pain; G43.909 Migraine, unspecified, not intractable, without status migrainosus; Z79.899 Other long term (current) drug therapy; Z79.82 Long term (current) use of aspirin; Z82.0 Family history of epilepsy and other diseases of the nervous system; Z87.11 Personal history of peptic ulcer disease
CPT/HCPCS: 96374 ×2; 99285; 96376; 96375; 36415; 93005; 83880; 80053; 80048; 83735; 84100; 84484 ×2; 85025 ×2; 85610; 71020; G0378 ×2; J1885; J1170

== ENCOUNTER 2017-05-26 10:07 | Observation (INO) | payer MEDICARE, OTHER ==
--- NOTE | 2017-05-26 10:27 | ED ---
General Adult HPI - General Chief complaint: Chest Pain Stated complaint: Chest Pain Time Seen by Provider: 05/26/17 10:15 Source: patient, RN notes reviewed Mode of arrival: EMS Limitations: no limitations - History of Present Illness Initial comments: This is a 41-year-old male who presents emergency Department complaining of chest pain. Patient states she's had 8 stents and 10 heart attacks in the past. Patient states he started having some nausea vomiting started night and stop vomiting last evening. Patient states his chest pain however is been intermittent for the last 2 days. Patient denies any abdominal pain currently. Patient denies any dysuria hematuria urinary frequency. Patient denies any back pain. Patient denies any palpitations. Patient does state he is short of breath but denies diaphoresis. Patient states he had a cardiac stent back in December and had a recent catheterization approximately one month ago and it was normal. - Related Data Home Medications Medication Instructions Recorded Confirmed Nitroglycerin Sl Tabs [Nitrostat] 0.4 mg SUBLINGUAL Q5M PRN 10/13/13 05/26/17 metFORMIN HCL 1,000 mg PO BID 07/03/15 05/26/17 Omeprazole [PriLOSEC] 40 mg PO HS 08/13/15 05/26/17 Dulaglutide [Trulicity] 1.5 mg SQ OROZCO 03/10/16 05/26/17 Glimepiride 4 mg PO BID 03/10/16 05/26/17 Rosuvastatin Calcium 40 mg PO HS 05/05/16 05/26/17 Ranolazine [Ranexa] 1,000 mg PO BID 06/09/16 05/26/17 Primidone [Mysoline] 100 mg PO HS 06/30/16 05/26/17 Loperamide [Imodium] 2 mg PO TID 10/20/16 05/26/17 Cholecalciferol (Vitamin D3) 2,000 unit PO DAILY 11/07/16 05/26/17 [Vitamin D3] Linagliptin [Tradjenta] 5 mg PO HS 12/19/16 05/26/17 ARIPiprazole [ARIPiprazole Odt] 15 mg PO HS 02/14/17 05/26/17 Albuterol Inhaler [Ventolin Hfa 2 puff INHALATION RT-QID PRN 02/14/17 05/26/17 Inhaler] Gabapentin [Neurontin] 400 mg PO TID 02/24/17 05/26/17 Aspirin EC [Ecotrin Low Dose] 81 mg PO DAILY 04/11/17 05/26/17 Metoprolol Tartrate [Lopressor] 50 mg PO BID 05/14/17 05/26/17 Aspirin 325 mg PO ONCE 05/26/17 05/26/17 traMADol HCl [Ultram] 100 mg PO Q8H PRN 05/26/17 05/26/17 Previous Rx's Medication Instructions Recorded Prasugrel [Effient] 10 mg PO DAILY tab 07/01/16 Sertraline HCl [Zoloft] 200 mg PO DAILY #28 01/27/17 hydrALAZINE HCL [Apresoline] 25 mg PO BID #60 tab 02/26/17 Isosorbide Mononitrate ER [Imdur] 60 mg PO DAILY #30 tab.er.24h 03/13/17 Allergies Allergy/AdvReac Type Severity Reaction Status Date / Time erythromycin base Allergy Severe Swelling Verified 05/26/17 10:42 [Erythromycin Base] codeine Allergy Unknown Swelling Verified 05/26/17 10:42 meclizine Allergy Unknown Unknown Verified 05/26/17 10:42 Penicillins Allergy Unknown Rash/Hives Verified 05/26/17 10:42 shellfish derived Allergy Unknown Anaphylaxis Verified 05/26/17 10:42 Fish Containing Products Allergy Anaphylaxis Verified 05/26/17 10:42 [Fish] Iodinated Contrast- Oral and Allergy Anaphylaxis Verified 05/26/17 10:42 IV Dye cephalexin monohydrate AdvReac Unknown Nausea & Verified 05/26/17 10:42 [From Keflex] Vomiting naproxen AdvReac Unknown Compromises Verified 05/26/17 10:42 Kidney Function atorvastatin calcium AdvReac Myalgia Verified 05/26/17 10:42 [From Lipitor] hydrocodone [From [place]] AdvReac Rapid Verified 05/26/17 10:42 Heart Rate Review of Systems ROS Statement: Those systems with pertinent positive or pertinent negative responses have been documented in the HPI. ROS Other: All systems not noted in ROS Statement are negative. Past Medical History Past Medical History: Asthma, Coronary Artery Disease (CAD), Chest Pain / Angina , Heart Failure, CVA/TIA, Diabetes Mellitus, GERD/Reflux, Hyperlipidemia, Hypertension, Myocardial Infarction (CA), Osteoarthritis (OA), Pneumonia, Skin Disorder, Sleep Apnea/CPAP/BIPAP Additional Past Medical History / Comment(s): Coronary artery disease with multiple vessel disease, ischemic cardiomyopathy, diabetic neuropathy bilateral hands and feet, hypertensive cardiovascular disease, chronic gastritis, degenerative disc disease, chronic back pain, depression with hx of suicide attempts, GASTROPARESIS, PSORIASES,NIDDM type II, UTI, migraines, TIA, PUD, hiatal hernia, L rotator cuff tear, bronchitis, pseudoaneurysm L groin post procedure. 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 Past Anesthesia/Blood Transfusion Reactions: No Reported Reaction Additional Past Anesthesia/Blood Transfusion Reaction / Comment(s): . Date of Last Stent Placement:: 12/23/16 Type of Cardiac Device: Biventricular Pacemaker, AICD Device Placement Date:: 09/19/15 Past Psychological History: Anxiety, Depression, PTSD Smoking Status: Never smoker Past Alcohol Use History: None Reported Past Drug Use History: None Reported - Past Family History Mother Family Medical History: Coronary Artery Disease (CAD), Myocardial Infarction (CA ) Additional Family Medical History / Comment(s): 7 CA and faulty heart valve. Pt does not know the age when mother had her MIs. Father History Unknown: Yes Additional Family Medical History / Comment(s): Does not know who father is Brother(s) Family Medical History: Congestive Heart Failure (CHF), Myocardial Infarction ( CA) Additional Family Medical History / Comment(s): Parkinsons. Pt does not know at what age his brother had a CA Patient has Family Medical History: No Reported History Additional Family Medical History / Comment(s): There is a strong family history for heart disease, hypertension, and diabetes. General Exam - General Exam Comments Initial Comments: GENERAL: Patient is well-developed and well-nourished. Patient is nontoxic and well- hydrated and is in mild distress. ENT: Neck is soft and supple. No significant lymphadenopathy is noted. Oropharynx is clear. Moist mucous membranes. Neck has full range of motion without eliciting any pain. EYES: The sclera were anicteric and conjunctiva were pink and moist. Extraocular movements were intact and pupils were equal round and reactive to light. Eyelids were unremarkable. PULMONARY: Unlabored respirations. Good breath sounds bilaterally. No audible rales rhonchi or wheezing was noted. CARDIOVASCULAR: There is a regular rate and rhythm without any murmurs gallops or rubs. ABDOMEN: Soft and nontender with normal bowel sounds. No palpable organomegaly was noted. There is no palpable pulsatile mass. SKIN: Skin is clear with no lesions or rashes and otherwise unremarkable. NEUROLOGIC: Patient is alert and oriented x3. Cranial nerves II through XII are grossly intact. Motor and sensory are also intact. Normal speech, volume and content. Symmetrical smile. MUSCULOSKELETAL: Normal extremities with adequate strength and full range of motion. LYMPHATICS: No significant lymphadenopathy is noted PSYCHIATRIC: Normal psychiatric evaluation. Limitations: no limitations Course Vital Signs 05/26/17 05/26/17 05/26/17 10:15 11:16 12:45 Temperature 98.4 F 98.0 F Pulse Rate 89 95 83 Respiratory 18 18 18 Rate Blood Pressure 135/75 148/64 150/77 O2 Sat by Pulse 98 95 98 Oximetry Medical Decision Making - Medical Decision Making EKG shows a paced rhythm at 86 bpm OH interval is 162 QRS is 114 QT interval 370 QTC is 452. Patient's EKG shows no ST segment elevation or depression or T wave abnormalities are noted. Chest x-ray shows no acute abnormality. Patient has unstable angina/started the patient on heparin emergency department. I spoke with Dr. Guerrero from [facility] physician's and admitted the patient I wrote admitting orders and consult cardiology. I give the heparin going on the floor as well as Nitropaste and aspirin. - Lab Data Result diagrams: 05/26/17 10:31 05/26/17 10:31 Lab Results 05/26/17 05/26/17 05/26/17 Range/Units 10:31 10:31 10:31 WBC 5.1 (3.8-10.6) k/uL RBC 4.69 (4.30-5.90) m/uL Hgb 12.4 L (13.0-17.5) gm/dL Hct 38.4 L (39.0-53.0) % MCV 82.0 (80.0-100.0) fL MCH 26.4 (25.0-35.0) pg MCHC 32.3 (31.0-37.0) g/dL RDW 16.2 H (11.5-15.5) % Plt Count 198 (150-450) k/uL Neutrophils % 57 % Lymphocytes % 33 % Monocytes % 4 % Eosinophils % 3 % Basophils % 1 % Neutrophils # 2.9 (1.3-7.7) k/uL Lymphocytes # 1.7 (1.0-4.8) k/uL Monocytes # 0.2 (0-1.0) k/uL Eosinophils # 0.2 (0-0.7) k/uL Basophils # 0.0 (0-0.2) k/uL Anisocytosis Slight PT (9.0-12.0) sec INR (<1.2) APTT (22.0-30.0) sec Sodium 136 L (137-145) mmol/L Potassium 4.7 (3.5-5.1) mmol/L Chloride 101 (98-107) mmol/L Carbon Dioxide 23 (22-30) mmol/L Anion Gap 12 mmol/L BUN 18 (9-20) mg/dL Creatinine 0.97 (0.66-1.25) mg/dL Est GFR (MDRD) Af Amer >60 (>60 ml/min/1.73 sqM) Est GFR (MDRD) Non-Af >60 (>60 ml/min/1.73 sqM) Glucose 249 H (74-99) mg/dL Calcium 9.8 (8.4-10.2) mg/dL Magnesium 1.6 (1.6-2.3) mg/dL Total Bilirubin 0.4 (0.2-1.3) mg/dL AST 25 (17-59) U/L ALT 37 (21-72) U/L Alkaline Phosphatase 129 H (38-126) U/L Total Creatine Kinase 68 (55-170) U/L CK-MB (CK-2) 1.2 (0.0-2.4) ng/mL CK-MB (CK-2) Rel Index 1.8 Troponin I 0.031 (0.000-0.034) ng/mL NT-Pro-B Natriuret Pep pg/mL Total Protein 6.2 L (6.3-8.2) g/dL Albumin 3.6 (3.5-5.0) g/dL 05/26/17 05/26/17 Range/Units 10:31 10:31 WBC (3.8-10.6) k/uL RBC (4.30-5.90) m/uL Hgb (13.0-17.5) gm/dL Hct (39.0-53.0) % MCV (80.0-100.0) fL MCH (25.0-35.0) pg MCHC (31.0-37.0) g/dL RDW (11.5-15.5) % Plt Count (150-450) k/uL Neutrophils % % Lymphocytes % % Monocytes % % Eosinophils % % Basophils % % Neutrophils # (1.3-7.7) k/uL Lymphocytes # (1.0-4.8) k/uL Monocytes # (0-1.0) k/uL Eosinophils # (0-0.7) k/uL Basophils # (0-0.2) k/uL Anisocytosis PT 9.7 (9.0-12.0) sec INR 1.0 (<1.2) APTT 20.2 L (22.0-30.0) sec Sodium (137-145) mmol/L Potassium (3.5-5.1) mmol/L Chloride (98-107) mmol/L Carbon Dioxide (22-30) mmol/L Anion Gap mmol/L BUN (9-20) mg/dL Creatinine (0.66-1.25) mg/dL Est GFR (MDRD) Af Amer (>60 ml/min/1.73 sqM) Est GFR (MDRD) Non-Af (>60 ml/min/1.73 sqM) Glucose (74-99) mg/dL Calcium (8.4-10.2) mg/dL Magnesium (1.6-2.3) mg/dL Total Bilirubin (0.2-1.3) mg/dL AST (17-59) U/L ALT (21-72) U/L Alkaline Phosphatase (38-126) U/L Total Creatine Kinase (55-170) U/L CK-MB (CK-2) (0.0-2.4) ng/mL CK-MB (CK-2) Rel Index Troponin I (0.000-0.034) ng/mL NT-Pro-B Natriuret Pep 704 pg/mL Total Protein (6.3-8.2) g/dL Albumin (3.5-5.0) g/dL Critical Care Time Critical Care Time: Yes Total Critical Care Time: 35 Disposition Clinical Impression: Unstable angina Disposition: ADMITTED IP TO THIS HOSP Referrals: Junie New MD [Primary Care Provider] - 1-2 days Time of Disposition: 13:29
[2017-05-26] MEDS ORDERED: ASPIRIN 81 MG PO STA (11:18)
[2017-05-26] MEDS ORDERED: NITROGLYCERIN OINT 1 INCH/GM PACKET TOPICAL STA (11:18)
[2017-05-26] MEDS ORDERED: ONDANSETRON 4 MG/2 ML VIAL IVP STA (11:24)
[2017-05-26 11:34] LABS: Anisocytosis Slight; Basophils % (A) 1 %; Eosinophils # (A) 0.2 k/uL (0-0.7); Eosinophils % (A) 3 %; HCT 38.4 % (39.0-53.0); HGB 12.4 gm/dL (13.0-17.5); Lymphocytes # (A) 1.7 k/uL (1.0-4.8); Lymphocytes % (A) 33 %; MCH 26.4 pg (25.0-35.0); MCHC 32.3 g/dL (31.0-37.0); Mean Platelet Volume 7.8; Monocytes # (A) 0.2 k/uL (0-1.0); Monocytes % (A) 4 %; Neutrophils # (A) 2.9 k/uL (1.3-7.7); Neutrophils % (A) 57 %; Platelet Count 198 k/uL (150-450); RBC 4.69 m/uL (4.30-5.90); RDW 16.2 % (11.5-15.5); WBC 5.1 k/uL (3.8-10.6)
[2017-05-26 11:47] LABS: ALT 37 U/L (21-72); AST 25 U/L (17-59); Albumin 3.6 g/dL (3.5-5.0); Alkaline Phosphatase 129 U/L (38-126); Anion Gap 12 mmol/L; Blood Urea Nitrogen 18 mg/dL (9-20); Calcium 9.8 mg/dL (8.4-10.2); Carbon Dioxide 23 mmol/L (22-30); Chloride 101 mmol/L (98-107); Glucose 249 mg/dL (74-99); Magnesium 1.6 mg/dL (1.6-2.3); Sodium 136 mmol/L (137-145); Total Bilirubin 0.4 mg/dL (0.2-1.3); Total Protein 6.2 g/dL (6.3-8.2)
[2017-05-26 11:48] LABS: Potassium 4.7 mmol/L (3.5-5.1)
--- NOTE | 2017-05-26 11:52 | XR ---
EXAMINATION TYPE: XR chest 2V DATE OF EXAM: 05/26/2017 COMPARISON: 05/14/2017 TECHNIQUE: PA and lateral views submitted. HISTORY: Chest pressure FINDINGS: The lungs are clear and there is no pneumothorax, pleural effusion, or focal pneumonia. Cardiac dev ice noted. Question coronary artery stenting. Cardiac leads are in stable position relative to the pr evious exam. IMPRESSION: 1. No acute process.
[2017-05-26 11:54] LABS: Prothrombin Time 9.7 sec (9.0-12.0)
[2017-05-26 12:14] LABS: Partial Thromboplastin Time 20.2 sec (22.0-30.0)
[2017-05-26 12:21] LABS: Creatine Kinase MB 1.2 ng/mL (0.0-2.4); Troponin I 0.031 ng/mL (0.000-0.034)
[2017-05-26] MEDS ORDERED: HEPARIN SODIUM,PORCINE 5,000 UNIT/ML 1 ML VIAL IV ONE (13:24)
[2017-05-26] MEDS ORDERED: NITROGLYCERIN SL TABS 0.4 MG TAB SUBLINGUAL PRN ×2 (13:26→14:33)
[2017-05-26] MEDS ORDERED: HEPARIN SOD,PORK IN 0.45% NACL 25,000 UNIT in 0.45% NACL 1 500ML.BAG IV SCH (13:30)
[2017-05-26] MEDS ORDERED: ACETAMINOPHEN TAB 325 MG TAB PO PRN (14:31)
[2017-05-26] MEDS ORDERED: NALOXONE 0.4 MG/ML 1 ML VIAL IV PRN (14:31)
[2017-05-26] MEDS ORDERED: ALBUTEROL NEBULIZED 2.5 MG/3 ML INHALATION PRN (14:33)
[2017-05-26] MEDS ORDERED: traMADol 50 MG TAB PO PRN (14:33)
--- NOTE | 2017-05-26 14:47 | P.HPIM ---
History of Present Illness H&P Date: 05/26/17 Chief Complaint: Chest pain. 41-year-old male who presents emergency Department complaining of chest pain. Patient states she's had 8 stents and 10 heart attacks in the past. Patient states he started having getting sick with some nausea, vomiting that started last weekend. He had some subjective fevers and chills back then. Currently all those symptoms resolved. Since yesterday he was having some chest pain that has been intermittent amor. when he lays down and it feels like burning. The pain has no radiation. Patient denies any abdominal pain. Patient denies any dysuria , hematuria or urinary frequency. Patient denies any palpitations. Patient does state he is short of breath but that is chronic for him. He denies diaphoresis. Patient states he had a cardiac stent back in December. Review of Systems 12 Point review of system was performed, negative except for HPI Past Medical History Past Medical History: Asthma, Coronary Artery Disease (CAD), Chest Pain / Angina , Heart Failure, CVA/TIA, Diabetes Mellitus, GERD/Reflux, Hyperlipidemia, Hypertension, Myocardial Infarction (ME), Osteoarthritis (OA), Pneumonia, Skin Disorder, Sleep Apnea/CPAP/BIPAP Additional Past Medical History / Comment(s): Coronary artery disease with multiple vessel disease, ischemic cardiomyopathy, diabetic neuropathy bilateral hands and feet, hypertensive cardiovascular disease, chronic gastritis, degenerative disc disease, chronic back pain, depression with hx of suicide attempts, GASTROPARESIS, PSORIASES,NIDDM type II, UTI, migraines, TIA, PUD, hiatal hernia, L rotator cuff tear, bronchitis, pseudoaneurysm L groin post procedure. 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 Past Anesthesia/Blood Transfusion Reactions: No Reported Reaction Additional Past Anesthesia/Blood Transfusion Reaction / Comment(s): . Date of Last Stent Placement:: 12/23/16 Type of Cardiac Device: Biventricular Pacemaker, AICD Device Placement Date:: 09/19/15 Smoking Status: Never smoker - Past Family History Mother Family Medical History: Coronary Artery Disease (CAD), Myocardial Infarction (ME ) Additional Family Medical History / Comment(s): 7 ME and faulty heart valve. Pt does not know the age when mother had her MIs. Father History Unknown: Yes Additional Family Medical History / Comment(s): Does not know who father is Brother(s) Family Medical History: Congestive Heart Failure (CHF), Myocardial Infarction ( ME) Additional Family Medical History / Comment(s): Parkinsons. Pt does not know at what age his brother had a ME Patient has Family Medical History: No Reported History Additional Family Medical History / Comment(s): There is a strong family history for heart disease, hypertension, and diabetes. Medications and Allergies Home Medications Medication Instructions Recorded Confirmed Type Nitroglycerin Sl Tabs [Nitrostat] 0.4 mg SUBLINGUAL Q5M PRN 10/13/13 05/26/17 History metFORMIN HCL 1,000 mg PO BID 07/03/15 05/26/17 History Omeprazole [PriLOSEC] 40 mg PO HS 08/13/15 05/26/17 History Dulaglutide [Trulicity] 1.5 mg SQ OROZCO 03/10/16 05/26/17 History Glimepiride 4 mg PO BID 03/10/16 05/26/17 History Rosuvastatin Calcium 40 mg PO HS 05/05/16 05/26/17 History Ranolazine [Ranexa] 1,000 mg PO BID 06/09/16 05/26/17 History Primidone [Mysoline] 100 mg PO HS 06/30/16 05/26/17 History Prasugrel [Effient] 10 mg PO DAILY tab 07/01/16 05/26/17 Rx Loperamide [Imodium] 2 mg PO TID 10/20/16 05/26/17 History Cholecalciferol (Vitamin D3) 2,000 unit PO DAILY 11/07/16 05/26/17 History [Vitamin D3] Linagliptin [Tradjenta] 5 mg PO HS 12/19/16 05/26/17 History Sertraline HCl [Zoloft] 200 mg PO DAILY #28 01/27/17 05/26/17 Rx ARIPiprazole [ARIPiprazole Odt] 15 mg PO HS 02/14/17 05/26/17 History Albuterol Inhaler [Ventolin Hfa 2 puff INHALATION RT-QID PRN 02/14/17 05/26/17 History Inhaler] Gabapentin [Neurontin] 400 mg PO TID 02/24/17 05/26/17 History hydrALAZINE HCL [Apresoline] 25 mg PO BID #60 tab 02/26/17 05/26/17 Rx Isosorbide Mononitrate ER [Imdur] 60 mg PO DAILY #30 tab.er.24h 03/13/17 Rx Aspirin EC [Ecotrin Low Dose] 81 mg PO DAILY 04/11/17 05/26/17 History Metoprolol Tartrate [Lopressor] 50 mg PO BID 05/14/17 05/26/17 History Aspirin 325 mg PO ONCE 05/26/17 05/26/17 History traMADol HCl [Ultram] 100 mg PO Q8H PRN 05/26/17 05/26/17 History Allergies Allergy/AdvReac Type Severity Reaction Status Date / Time erythromycin base Allergy Severe Swelling Verified 05/26/17 10:42 [Erythromycin Base] codeine Allergy Unknown Swelling Verified 05/26/17 10:42 meclizine Allergy Unknown Unknown Verified 05/26/17 10:42 Penicillins Allergy Unknown Rash/Hives Verified 05/26/17 10:42 shellfish derived Allergy Unknown Anaphylaxis Verified 05/26/17 10:42 Fish Containing Products Allergy Anaphylaxis Verified 05/26/17 10:42 [Fish] Iodinated Contrast- Oral and Allergy Anaphylaxis Verified 05/26/17 10:42 IV Dye cephalexin monohydrate AdvReac Unknown Nausea & Verified 05/26/17 10:42 [From Keflex] Vomiting naproxen AdvReac Unknown Compromises Verified 05/26/17 10:42 Kidney Function atorvastatin calcium AdvReac Myalgia Verified 05/26/17 10:42 [From Lipitor] hydrocodone [From [place]] AdvReac Rapid Verified 05/26/17 10:42 Heart Rate Physical Exam Vitals: Vital Signs Temp Pulse Resp BP Pulse Ox 05/26/17 13:38 98.0 F 82 18 144/82 96 01/02/18 12:45 98.0 F 83 18 150/77 98 05/26/17 11:16 95 18 148/64 95 05/26/17 10:15 98.4 F 89 18 135/75 98 Intake and Output 05/25/17 05/26/17 05/26/17 22:59 06:59 14:59 Other: Weight 113.398 kg Patient Weight 05/27/17 06:59 Weight 113.398 kg Constitutional: No acute distress, conversant, pleasant Eyes:Anicteric sclerae, moist conjunctiva, no lid-lag, PERRLA, ENMT: Oropharynx clear, no erythema, exudates Neck: Supple, FROM, no masses, or JVD, No carotid bruits, No thyromegaly Lungs: Pacemaker placed on the left side of the chest. Lower sternal chest wall is tender to palpation. Clear to auscultation, Clear to percussion, Normal respiratory effort, no accessory muscle use Cardiovascular: Heart regular in rate and rhythm, No murmurs, gallops, or rubs, No peripheral edema. Abdominal: Soft, Nontender, no guarding, rebound or rigidity, Normoactive bowel sounds, No hepatomegaly, No splenomegaly, No palpable mass Skin: Normal temperature, tone, texture, turgor, no induration, No subcutaneous nodules, No rash, lesions, No ulcers Extremities: No digital cyanosis, No clubbing, Pedal pulses intact and symmetrical, Radial pulses intact and symmetrical, No calf tenderness Psychiatric: Alert and oriented to person, place and time, appropriate affect, intact judgement Neuro: Muscles Strength 5/5 in all 4 extremities, Sensation to light touch grossly present throughout, Cranial nerves II-XII grossly intact, no focal sensory deficits Results CBC & Chem 7: 05/26/17 10:31 05/26/17 10:31 Labs: Abnormal Lab Results - Last 24 Hours (Table) 05/26/17 05/26/17 05/26/17 Range/Units 10:31 10:31 10:31 Hgb 12.4 L (13.0-17.5) gm/dL Hct 38.4 L (39.0-53.0) % RDW 16.2 H (11.5-15.5) % APTT 20.2 L (22.0-30.0) sec Sodium 136 L (137-145) mmol/L Glucose 249 H (74-99) mg/dL Alkaline Phosphatase 129 H (38-126) U/L Total Protein 6.2 L (6.3-8.2) g/dL Thrombosis Risk Factor Assmnt - Choose All That Apply Any of the Below Risk Factors Present?: Yes Each Factor Represents 1 point: Age 41-60 years, Obesity (BMI >25) Other Risk Factors: No Other congenital or acquired thrombophilia - If yes, enter type in comment: No Thrombosis Risk Factor Assessment Total Risk Factor Score: 2 Thrombosis Risk Factor Assessment Level: Low Risk Assessment and Plan Plan: #1 Acute chest pain: Rule out acute coronary syndrome especially with history of coronary artery disease Labs and EKG reviewed Troponin WNL Admit to observation on telemetry Consults cardio. Cycle troponins Nitroglycerin, tramadol and Dilaudid for pain #2 Type 2 diabetes: Continue his home hypoglycemics Sliding scale insulin with blood sugars check every before meals and at bedtime #3 Asthma, history of heart Failure, history of CVA/TIA, GERD/Reflux, Hyperlipidemia, benign Hypertension, Osteoarthritis (OA), Sleep Apnea/CPAP/BIPAP : All stable Continue all medications #4 DVT prophylaxis: Ambulatory, low risk
[2017-05-26 17:36] LABS: Creatine Kinase MB 1.4 ng/mL (0.0-2.4); Troponin I 0.031 ng/mL (0.000-0.034)
[2017-05-26] MEDS: LOPERAMIDE 2 MG CAP PO SCH ×2 (19:40→21:13)
[2017-05-26] MEDS ORDERED: LINAGLIPTIN 5 MG TABLET PO SCH (21:00)
[2017-05-26] MEDS ORDERED: PRIMIDONE 50 MG TAB PO SCH (21:00)
[2017-05-26] MEDS ORDERED: ARIPiprazole 15 MG TAB PO SCH (21:00)
[2017-05-26] MEDS ORDERED: PANTOPRAZOLE 40 MG TABLET PO SCH (21:00)
[2017-05-26] MEDS ORDERED: PRASUGREL 10 MG TAB PO SCH (21:00)
[2017-05-26] MEDS ORDERED: ROSUVASTATIN CALCIUM 40 MG PO SCH (21:00)
[2017-05-26] MEDS: GABAPENTIN 400 MG CAP PO SCH ×2 (21:02→21:04)
[2017-05-26] MEDS: metFORMIN 500 MG TAB PO SCH (21:02)
[2017-05-26] MEDS: RANOLAZINE 500 MG TAB.ER.12H PO SCH (21:02)
[2017-05-26] MEDS: hydrALAZINE HCL 25 MG TAB PO SCH (21:03)
[2017-05-26] MEDS: METOPROLOL TARTRATE 50 MG TAB PO SCH (21:03)
[2017-05-26] MEDS: GLIMEPIRIDE 4 MG TAB PO SCH (21:03)
[2017-05-26 21:04] LABS: Glucose,Whole Blood 390 mg/dL (75-99)
[2017-05-26] MEDS: NITROGLYCERIN OINT 1 INCH/GM PACKET TOPICAL SCH (21:08)
[2017-05-26] MEDS: INSULIN ASPART 100 UNIT/ML 1 ML 10 ML VIAL SQ SCH ×2 (21:14→21:17)
[2017-05-26 23:20] LABS: Creatine Kinase MB 1.5 ng/mL (0.0-2.4); Troponin I 0.016 ng/mL (0.000-0.034)
[2017-05-27] MEDS: NITROGLYCERIN OINT 1 INCH/GM PACKET TOPICAL SCH (03:32)
[2017-05-27 06:50] LABS: Glucose,Whole Blood 188 mg/dL (75-99)
[2017-05-27 07:01] LABS: Basophils % (A) 1 %; Eosinophils # (A) 0.2 k/uL (0-0.7); Eosinophils % (A) 4 %; HCT 36.7 % (39.0-53.0); HGB 11.8 gm/dL (13.0-17.5); Hypochromasia Slight; Lymphocytes # (A) 1.7 k/uL (1.0-4.8); Lymphocytes % (A) 34 %; MCH 26.3 pg (25.0-35.0); MCHC 32.2 g/dL (31.0-37.0); MCV 81.9 fL (80.0-100.0); Monocytes # (A) 0.2 k/uL (0-1.0); Monocytes % (A) 4 %; Neutrophils # (A) 2.8 k/uL (1.3-7.7); Neutrophils % (A) 56 %; Platelet Count 180 k/uL (150-450); RBC 4.48 m/uL (4.30-5.90); RDW 14.6 % (11.5-15.5)
[2017-05-27 07:17] LABS: Anion Gap 11 mmol/L; Blood Urea Nitrogen 21 mg/dL (9-20); Calcium 9.5 mg/dL (8.4-10.2); Carbon Dioxide 24 mmol/L (22-30); Chloride 102 mmol/L (98-107); Cholesterol 108 mg/dL (<200); Glucose 207 mg/dL (74-99); HDL Cholesterol 30 mg/dL (40-60); LDL Cholesterol,Calculated 41 mg/dL (0-99); Magnesium 1.5 mg/dL (1.6-2.3); Phosphorus 4.5 mg/dL (2.5-4.5); Potassium 4.8 mmol/L (3.5-5.1); Sodium 137 mmol/L (137-145); Triglycerides 183 mg/dL (<150)
[2017-05-27] MEDS ORDERED: CHOLECALCIFEROL 1,000 UNIT TAB PO SCH (09:00)
[2017-05-27] MEDS ORDERED: ASPIRIN 81 MG PO SCH (09:00)
[2017-05-27] MEDS ORDERED: ASPIRIN 325 MG TAB PO SCH (09:00)
[2017-05-27] MEDS ORDERED: SERTRALINE 100 MG TAB PO SCH (09:00)
[2017-05-27] MEDS ORDERED: PRASUGREL 10 MG TAB PO SCH (09:00)
[2017-05-27] MEDS ORDERED: ISOSORBIDE MONONITRATE ER 60 MG TAB.ER.24H PO SCH (09:00)
--- NOTE | 2017-05-27 09:26 | P.CRDCN ---
History of Present Illness History of present illness: Patient interviewed and examined. Please see full dictation by nurse practitioner. She complained of cough and vomiting. At the same time he is complaining of chest discomfort so he was sent to the hospital. Currently pain- free, ask for pain medications Known coronary artery disease status post multiple stents, diabetes, obesity and follows with outside it auditor Cardiac enzymes are normal ECG shows a biventricular pacing Patient has known history of cardio myopathy and a Bi V ICD was implanted as an outside institution Plan No change in cardiac medications, patient may be discharged home from a cardiac standpoint and follow up with his primary it auditor Past Medical History Past Medical History: Asthma, Coronary Artery Disease (CAD), Chest Pain / Angina , Heart Failure, CVA/TIA, Diabetes Mellitus, GERD/Reflux, Hyperlipidemia, Hypertension, Myocardial Infarction (NH), Osteoarthritis (OA), Pneumonia, Skin Disorder, Sleep Apnea/CPAP/BIPAP Additional Past Medical History / Comment(s): Coronary artery disease with multiple vessel disease, ischemic cardiomyopathy, diabetic neuropathy bilateral hands and feet, hypertensive cardiovascular disease, chronic gastritis, degenerative disc disease, chronic back pain, depression with hx of suicide attempts, GASTROPARESIS, PSORIASES,NIDDM type II, UTI, migraines, TIA, PUD, hiatal hernia, L rotator cuff tear, bronchitis, pseudoaneurysm L groin post procedure. 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 Past Anesthesia/Blood Transfusion Reactions: No Reported Reaction Additional Past Anesthesia/Blood Transfusion Reaction / Comment(s): . Date of Last Stent Placement:: 12/23/16 Type of Cardiac Device: Biventricular Pacemaker, AICD Device Placement Date:: 09/19/15 Smoking Status: Never smoker - Past Family History Mother Family Medical History: Coronary Artery Disease (CAD), Myocardial Infarction (NH ) Additional Family Medical History / Comment(s): 7 NH and faulty heart valve. Pt does not know the age when mother had her MIs. Father History Unknown: Yes Additional Family Medical History / Comment(s): Does not know who father is Brother(s) Family Medical History: Congestive Heart Failure (CHF), Myocardial Infarction ( NH) Additional Family Medical History / Comment(s): Parkinsons. Pt does not know at what age his brother had a NH Patient has Family Medical History: No Reported History Additional Family Medical History / Comment(s): There is a strong family history for heart disease, hypertension, and diabetes. Medications and Allergies Home Medications Medication Instructions Recorded Confirmed Type Nitroglycerin Sl Tabs [Nitrostat] 0.4 mg SUBLINGUAL Q5M PRN 10/13/13 05/26/17 History metFORMIN HCL 1,000 mg PO BID 07/03/15 05/26/17 History Omeprazole [PriLOSEC] 40 mg PO HS 08/13/15 05/26/17 History Dulaglutide [Trulicity] 1.5 mg SQ OROZCO 03/10/16 05/26/17 History Glimepiride 4 mg PO BID 03/10/16 05/26/17 History Rosuvastatin Calcium 40 mg PO HS 05/05/16 05/26/17 History Ranolazine [Ranexa] 1,000 mg PO BID 06/09/16 05/26/17 History Primidone [Mysoline] 100 mg PO HS 06/30/16 05/26/17 History Loperamide [Imodium] 2 mg PO TID 10/20/16 05/26/17 History Cholecalciferol (Vitamin D3) 2,000 unit PO DAILY 11/07/16 05/26/17 History [Vitamin D3] Linagliptin [Tradjenta] 5 mg PO HS 12/19/16 05/26/17 History Sertraline HCl [Zoloft] 200 mg PO DAILY #28 01/27/17 05/26/17 Rx ARIPiprazole [ARIPiprazole Odt] 15 mg PO HS 02/14/17 05/26/17 History Albuterol Inhaler [Ventolin Hfa 2 puff INHALATION RT-QID PRN 02/14/17 05/26/17 History Inhaler] Gabapentin [Neurontin] 400 mg PO TID 02/24/17 05/26/17 History hydrALAZINE HCL [Apresoline] 25 mg PO BID #60 tab 02/26/17 05/26/17 Rx Isosorbide Mononitrate ER [Imdur] 60 mg PO DAILY #30 tab.er.24h 03/13/17 Rx Aspirin EC [Ecotrin Low Dose] 81 mg PO DAILY 04/11/17 05/26/17 History Metoprolol Tartrate [Lopressor] 50 mg PO BID 05/14/17 05/26/17 History Aspirin 325 mg PO ONCE 05/26/17 05/26/17 History Prasugrel [Effient] 10 mg PO HS 05/26/17 05/26/17 History traMADol HCl [Ultram] 100 mg PO Q8H PRN 05/26/17 05/26/17 History Allergies Allergy/AdvReac Type Severity Reaction Status Date / Time erythromycin base Allergy Severe Swelling Verified 05/26/17 20:12 [Erythromycin Base] codeine Allergy Unknown Swelling Verified 05/26/17 20:12 meclizine Allergy Unknown Unknown Verified 05/26/17 20:12 Penicillins Allergy Unknown Rash/Hives Verified 05/26/17 20:12 shellfish derived Allergy Unknown Anaphylaxis Verified 05/26/17 20:12 Fish Containing Products Allergy Anaphylaxis Verified 05/26/17 20:12 [Fish] Iodinated Contrast- Oral and Allergy Anaphylaxis Verified 05/26/17 20:12 IV Dye cephalexin monohydrate AdvReac Unknown Nausea & Verified 05/26/17 20:12 [From Keflex] Vomiting naproxen AdvReac Unknown Compromises Verified 05/26/17 20:12 Kidney Function atorvastatin calcium AdvReac Myalgia Verified 05/26/17 20:12 [From Lipitor] hydrocodone [From [place]] AdvReac Rapid Verified 05/26/17 20:12 Heart Rate Physical Exam Vitals: Vital Signs Temp Pulse Pulse Resp BP BP Pulse Ox 05/27/17 07:39 97.6 F 76 16 138/70 95 05/27/17 04:00 98.1 F 80 18 156/80 96 05/27/17 00:00 98.2 F 76 18 137/73 98 05/26/17 21:39 98 F 78 18 141/83 97 05/26/17 19:34 98.2 F 85 18 140/80 99 05/26/17 18:03 98.0 F 84 18 134/84 98 05/26/17 15:19 97.8 F 89 18 133/70 95 05/26/17 13:38 98.0 F 82 18 144/82 96 05/26/17 12:45 98.0 F 83 18 150/77 98 05/26/17 11:16 95 18 148/64 95 05/26/17 10:15 98.4 F 89 18 135/75 98 Intake and Output 05/26/17 05/27/17 05/27/17 22:59 06:59 14:59 Intake Total 760 Balance 760 Intake: IV 160 Heparin Sod,Pork in 0.45% 160 NaCl 25,000 unit In 0.45 % NaCl 1 500ml.bag @ 8.8 UNITS/KG/HR 19.95 mls/hr IV .Q24H [facility] Rx#: [id number] Oral 600 Other: Voiding Method Toilet # Voids 2 Results 05/27/17 06:37 05/27/17 06:37 Cardiac Enzymes 05/26/17 05/26/17 05/26/17 Range/Units 10:31 10:31 16:52 AST 25 (17-59) U/L CK-MB (CK-2) 1.2 1.4 (0.0-2.4) ng/mL Troponin I 0.031 0.031 (0.000-0.034) ng/mL 05/26/17 Range/Units 22:35 AST (17-59) U/L CK-MB (CK-2) 1.5 (0.0-2.4) ng/mL Troponin I 0.016 (0.000-0.034) ng/mL Coagulation 05/26/17 05/26/17 Range/Units 10:31 22:35 PT 9.7 (9.0-12.0) sec APTT 20.2 L 22.7 (22.0-30.0) sec Lipids 05/27/17 Range/Units 06:37 Triglycerides 183 H (<150) mg/dL Cholesterol 108 (<200) mg/dL HDL Cholesterol 30 L (40-60) mg/dL CBC 05/26/17 05/27/17 Range/Units 10:31 06:37 WBC 5.1 5.0 (3.8-10.6) k/uL RBC 4.69 4.48 (4.30-5.90) m/uL Hgb 12.4 L 11.8 L (13.0-17.5) gm/dL Hct 38.4 L 36.7 L (39.0-53.0) % Plt Count 198 180 (150-450) k/uL Comprehensive Metabolic Panel 05/26/17 05/27/17 Range/Units 10:31 06:37 Sodium 136 L 137 (137-145) mmol/L Potassium 4.7 4.8 (3.5-5.1) mmol/L Chloride 101 102 (98-107) mmol/L Carbon Dioxide 23 24 (22-30) mmol/L BUN 18 21 H (9-20) mg/dL Creatinine 0.97 1.06 (0.66-1.25) mg/dL Glucose 249 H 207 H (74-99) mg/dL Calcium 9.8 9.5 (8.4-10.2) mg/dL AST 25 (17-59) U/L ALT 37 (21-72) U/L Alkaline Phosphatase 129 H (38-126) U/L Total Protein 6.2 L (6.3-8.2) g/dL Albumin 3.6 (3.5-5.0) g/dL Current Medications Generic Name Dose Route Start Last Admin Trade Name Freq PRN Reason Stop Dose Admin Acetaminophen 650 mg 05/26/17 14:31 Tylenol Tab PO Q6HR PRN Mild Pain or Fever > 100.5 Albuterol Sulfate 2.5 mg 05/26/17 14:33 Ventolin Nebulized INHALATION RT-QID PRN Shortness Of Breath Aripiprazole 15 mg 05/26/17 21:00 05/26/17 21:03 Abilify PO 15 mg HS JAKE Administration Aspirin 81 mg 05/27/17 09:00 Aspirin PO DAILY [facility] Cholecalciferol 2,000 unit 05/27/17 09:00 Vitamin D3 PO DAILY [facility] Gabapentin 400 mg 05/26/17 16:00 05/26/17 21:04 Neurontin PO Not Given TID [facility] Glimepiride 4 mg 05/26/17 21:00 05/26/17 21:03 Amaryl PO 4 mg BID JAKE Administration Hydralazine HCl 25 mg 05/26/17 21:00 05/26/17 21:03 Apresoline PO 25 mg BID JAKE Administration Insulin Aspart 0 unit 05/26/17 17:30 05/26/17 21:17 Novolog SQ Not Given ACHS [facility] Protocol Isosorbide Mononitrate 60 mg 05/27/17 09:00 Imdur PO DAILY JAKE Linagliptin 5 mg 05/26/17 21:00 05/26/17 21:03 Tradjenta PO 5 mg HS JAKE Administration Loperamide HCl 2 mg 05/26/17 16:00 05/26/17 21:13 Imodium PO 2 mg TID JAKE Administration Metformin HCl 1,000 mg 05/26/17 17:30 05/26/17 21:02 Glucophage PO 1,000 mg BID-W/MEALS [facility] Administration Metoprolol Tartrate 50 mg 05/26/17 21:00 05/26/17 21:03 Lopressor PO 50 mg BID JAKE Administration Naloxone HCl 0.2 mg 05/26/17 14:31 Narcan IV Q2M PRN Opioid Reversal Nitroglycerin 0.4 mg 05/26/17 13:26 Nitrostat SUBLINGUAL Q5M PRN Chest Pain Non-Formulary Medication 1.5 mg 05/31/17 09:00 Dulaglutide [Trulicity] SQ OROZCO JAKE Non-Formulary Medication 40 mg 05/26/17 21:00 05/26/17 21:04 Rosuvastatin Calcium [Rosuvastatin Calcium] PO Not Given HS JAKE Pantoprazole Sodium 40 mg 05/26/17 21:00 05/26/17 21:02 Protonix PO 40 mg HS JAKE Administration Prasugrel 10 mg 05/26/17 21:00 05/26/17 21:13 Effient PO 10 mg HS JAKE Administration Primidone 100 mg 05/26/17 21:00 05/26/17 21:03 Mysoline PO 100 mg HS JAKE Administration Ranolazine 1,000 mg 05/26/17 21:00 05/26/17 21:02 Ranexa PO 1,000 mg BID JAKE Administration Sertraline HCl 200 mg 05/27/17 09:00 Zoloft PO DAILY JAKE Tramadol HCl 100 mg 05/26/17 14:33 05/26/17 22:06 Ultram PO 100 mg Q8H PRN Administration pain Intake and Output 05/26/17 05/27/17 05/27/17 22:59 06:59 14:59 Intake Total 760 Balance 760 Intake: IV 160 Heparin Sod,Pork in 0.45% 160 NaCl 25,000 unit In 0.45 % NaCl 1 500ml.bag @ 8.8 UNITS/KG/HR 19.95 mls/hr IV .Q24H [facility] Rx#: [id number] Oral 600 Other: Voiding Method Toilet # Voids 2 05/27/17 06:37 05/27/17 06:37
[2017-05-27] MEDS: RANOLAZINE 500 MG TAB.ER.12H PO SCH (09:36)
[2017-05-27] MEDS: LOPERAMIDE 2 MG CAP PO SCH (09:37)
[2017-05-27] MEDS: metFORMIN 500 MG TAB PO SCH (09:37)
[2017-05-27] MEDS: GLIMEPIRIDE 4 MG TAB PO SCH (09:37)
[2017-05-27] MEDS: GABAPENTIN 400 MG CAP PO SCH (09:38)
[2017-05-27] MEDS: hydrALAZINE HCL 25 MG TAB PO SCH (09:38)
[2017-05-27] MEDS: METOPROLOL TARTRATE 50 MG TAB PO SCH (09:38)
[2017-05-27] MEDS: INSULIN ASPART 100 UNIT/ML 1 ML 10 ML VIAL SQ SCH (09:39)
--- NOTE | 2017-05-27 13:36 | P.DS ---
Providers Date of admission: 05/26/17 13:26 Expected date of discharge: 05/27/17 Attending physician: David Wellington MD Consults: 05/26/17 13:26 Consult Physician Urgent Consulting Provider: [facility] Consult Reason/Comments: Unstable angina Do you want consulting provider notified?: Yes Primary care physician: [facility] Course: The patient is a 41 -year-old male that was admitted for chest pain, was placed on observation secondary to his profound cardiac history which includes ischemic cardiomyopathy status post AICD placement, known history of coronary artery disease as had history of prior angioplasty. Troponin was normal, was trended and remained WNL. There were no signs of acute ischemia on his EKG, the patient was evaluated by behavioral psychologist Dr. Kang who felt that the pain wasn't cardiac in origin. Based on his description the pain felt like a burning sensation in the lower sternal area, and he actually did have some nausea/vomiting over the weekend. The chest pain was felt to be sec to GERD, which patient has a history of. He was given instructions on lifestyle modifications to avoid acid reflux. He was also instructed to follow up with his PCP and behavioral psychologist. Discharge process took less than 30 minutes Patient Condition at Discharge: Fair Plan - Discharge Summary Discharge Rx Participant: No New Discharge Prescriptions: New Nitroglycerin Sl Tabs [Nitrostat] 0.4 mg SUBLINGUAL Q5M PRN tab PRN Reason: Chest Pain Prasugrel [Effient] 10 mg PO HS tab Continue Nitroglycerin Sl Tabs [Nitrostat] 0.4 mg SUBLINGUAL Q5M PRN PRN Reason: Chest Pain metFORMIN HCL 1,000 mg PO BID Omeprazole [PriLOSEC] 40 mg PO HS Glimepiride 4 mg PO BID Dulaglutide [Trulicity] 1.5 mg SQ OROZCO Rosuvastatin Calcium 40 mg PO HS Ranolazine [Ranexa] 1,000 mg PO BID Primidone [Mysoline] 100 mg PO HS Loperamide [Imodium] 2 mg PO TID Cholecalciferol (Vitamin D3) [Vitamin D3] 2,000 unit PO DAILY Linagliptin [Tradjenta] 5 mg PO HS Sertraline HCl [Zoloft] 200 mg PO DAILY #28 ARIPiprazole [ARIPiprazole Odt] 15 mg PO HS Albuterol Inhaler [Ventolin Hfa Inhaler] 2 puff INHALATION RT-QID PRN PRN Reason: Shortness Of Breath Gabapentin [Neurontin] 400 mg PO TID hydrALAZINE HCL [Apresoline] 25 mg PO BID #60 tab Isosorbide Mononitrate ER [Imdur] 60 mg PO DAILY #30 tab.er.24h Aspirin EC [Ecotrin Low Dose] 81 mg PO DAILY Metoprolol Tartrate [Lopressor] 50 mg PO BID traMADol HCl [Ultram] 100 mg PO Q8H PRN PRN Reason: pain Aspirin 325 mg PO ONCE Prasugrel [Effient] 10 mg PO HS Discharge Medication List Nitroglycerin Sl Tabs [Nitrostat] 0.4 mg SUBLINGUAL Q5M PRN 10/13/13 [History] metFORMIN HCL 1,000 mg PO BID 07/03/15 [History] Omeprazole [PriLOSEC] 40 mg PO HS 08/13/15 [History] Dulaglutide [Trulicity] 1.5 mg SQ OROZCO 03/10/16 [History] Glimepiride 4 mg PO BID 03/10/16 [History] Rosuvastatin Calcium 40 mg PO HS 05/05/16 [History] Ranolazine [Ranexa] 1,000 mg PO BID 06/09/16 [History] Primidone [Mysoline] 100 mg PO HS 06/30/16 [History] Loperamide [Imodium] 2 mg PO TID 10/20/16 [History] Cholecalciferol (Vitamin D3) [Vitamin D3] 2,000 unit PO DAILY 11/07/16 [History] Linagliptin [Tradjenta] 5 mg PO HS 12/19/16 [History] Sertraline HCl [Zoloft] 200 mg PO DAILY #28 01/27/17 [Rx] ARIPiprazole [ARIPiprazole Odt] 15 mg PO HS 02/14/17 [History] Albuterol Inhaler [Ventolin Hfa Inhaler] 2 puff INHALATION RT-QID PRN 02/14/17 [ History] Gabapentin [Neurontin] 400 mg PO TID 02/24/17 [History] hydrALAZINE HCL [Apresoline] 25 mg PO BID #60 tab 02/26/17 [Rx] Isosorbide Mononitrate ER [Imdur] 60 mg PO DAILY #30 tab.er.24h 03/13/17 [Rx] Aspirin EC [Ecotrin Low Dose] 81 mg PO DAILY 04/11/17 [History] Metoprolol Tartrate [Lopressor] 50 mg PO BID 05/14/17 [History] Aspirin 325 mg PO ONCE 05/26/17 [History] Prasugrel [Effient] 10 mg PO HS 05/26/17 [History] traMADol HCl [Ultram] 100 mg PO Q8H PRN 05/26/17 [History] Nitroglycerin Sl Tabs [Nitrostat] 0.4 mg SUBLINGUAL Q5M PRN tab 05/27/17 [Rx] Prasugrel [Effient] 10 mg PO HS tab 05/27/17 [Rx] Follow up Appointment(s)/Referral(s): Junie New MD [Primary Care Provider] - 1-2 days Patient Instructions/Handouts: Chest Pain (GEN), Safe Use of Cough and Cold Medicines (GEN) Care Plan Goals (MU): follow up with own primary behavioral psychologist as needed. Discharge Disposition: HOME SELF-CARE
--- NOTE | 2017-05-27 14:20 | P.CRDCN ---
History of Present Illness Consult date: 05/27/17 History of present illness: Mr. Dunham is a pleasant 41-year-old male with past medical history significant for coronary artery disease, cardiomyopathy with AICD in place, hypertension, dyslipidemia, sleep apnea, morbid obesity and diabetes mellitus. He follows with Dr. Peres out of [facility]. We have been asked to see him in consultation for complaints of chest pain. He states he has been coughing and vomiting recently over the past few days. He developed chest discomfort while he was vomiting. He denies associated shortness of breath, dizziness, palpitation or diaphoresis. At the time of my exam he states all symptoms have resolved. EKG on arrival reveals bi-ventricular pacing. Chest xray negative for an acute cardiopulmonary process. Most recent echo reveals mild MR, TR, pulmonary hypertension with EF 40-45%. Current cardiac medications include hydralazine 25 mg twice a day, Ranexa 1000 mg twice a day, primidone 100 mg daily, Effient 10 mg daily, Lopressor 50 mg twice a day, Imdur 60 mg daily and aspirin 81 mg daily. Review of Systems CONSTITUTIONAL: Denies fever. Denies chills. EYES: Denies blurred vision. Denies vision changes. Denies eye pain. EARS, NOSE, MOUTH & THROAT: Denies headache. Denies sore throat. Denies ear pain. CARDIOVASCULAR: Denies chest pain. Denies shortness of breath. Denies orthopnea. Denies PND. Denies palpitations. RESPIRATORY: Denies cough. GASTROINTESTINAL: Denies abdominal pain. Denies diarrhea. Denies constipation. Denies nausea. Denies vomiting. MUSCULOSKELETAL: Denies myalgias. INTEGUMENTARY: Denies pruitis. Denies rash. NEUROLOGIC: Denies numbness. Denies tingling. Denies weakness. PSYCHIATRIC: Denies anxiety. Denies depression. ENDOCRINE: Denies fatigue. Denies weight change. Denies polydipsia. Denies polyurina. GENITOURINARY: Denies burning, hematuria or urgency with micturation. HEMATOLOGIC: Denies history of anemia. Denies bleeding. Past Medical History Past Medical History: Asthma, Coronary Artery Disease (CAD), Chest Pain / Angina , Heart Failure, CVA/TIA, Diabetes Mellitus, GERD/Reflux, Hyperlipidemia, Hypertension, Myocardial Infarction ([place]), Osteoarthritis (OA), Pneumonia, Skin Disorder, Sleep Apnea/CPAP/BIPAP Additional Past Medical History / Comment(s): Coronary artery disease with multiple vessel disease, ischemic cardiomyopathy, diabetic neuropathy bilateral hands and feet, hypertensive cardiovascular disease, chronic gastritis, degenerative disc disease, chronic back pain, depression with hx of suicide attempts, GASTROPARESIS, PSORIASES,NIDDM type II, UTI, migraines, TIA, PUD, hiatal hernia, L rotator cuff tear, bronchitis, pseudoaneurysm L groin post procedure. 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 Past Anesthesia/Blood Transfusion Reactions: No Reported Reaction Additional Past Anesthesia/Blood Transfusion Reaction / Comment(s): . Date of Last Stent Placement:: 12/23/16 Type of Cardiac Device: Biventricular Pacemaker, AICD Device Placement Date:: 09/19/15 Smoking Status: Never smoker - Past Family History Mother Family Medical History: Coronary Artery Disease (CAD), Myocardial Infarction ([place] ) Additional Family Medical History / Comment(s): 7 [place] and faulty heart valve. Pt does not know the age when mother had her MIs. Father History Unknown: Yes Additional Family Medical History / Comment(s): Does not know who father is Brother(s) Family Medical History: Congestive Heart Failure (CHF), Myocardial Infarction ( [place]) Additional Family Medical History / Comment(s): Parkinsons. Pt does not know at what age his brother had a [place] Patient has Family Medical History: No Reported History Additional Family Medical History / Comment(s): There is a strong family history for heart disease, hypertension, and diabetes. Medications and Allergies Home Medications Medication Instructions Recorded Confirmed Type Nitroglycerin Sl Tabs [Nitrostat] 0.4 mg SUBLINGUAL Q5M PRN 10/13/13 05/26/17 History metFORMIN HCL 1,000 mg PO BID 07/03/15 05/26/17 History Omeprazole [PriLOSEC] 40 mg PO HS 08/13/15 05/26/17 History Dulaglutide [Trulicity] 1.5 mg SQ OROZCO 03/10/16 05/26/17 History Glimepiride 4 mg PO BID 03/10/16 05/26/17 History Rosuvastatin Calcium 40 mg PO HS 05/05/16 05/26/17 History Ranolazine [Ranexa] 1,000 mg PO BID 06/09/16 05/26/17 History Primidone [Mysoline] 100 mg PO HS 06/30/16 05/26/17 History Loperamide [Imodium] 2 mg PO TID 10/20/16 05/26/17 History Cholecalciferol (Vitamin D3) 2,000 unit PO DAILY 11/07/16 05/26/17 History [Vitamin D3] Linagliptin [Tradjenta] 5 mg PO HS 12/19/16 05/26/17 History Sertraline HCl [Zoloft] 200 mg PO DAILY #28 01/27/17 05/26/17 Rx ARIPiprazole [ARIPiprazole Odt] 15 mg PO HS 02/14/17 05/26/17 History Albuterol Inhaler [Ventolin Hfa 2 puff INHALATION RT-QID PRN 02/14/17 05/26/17 History Inhaler] Gabapentin [Neurontin] 400 mg PO TID 02/24/17 05/26/17 History hydrALAZINE HCL [Apresoline] 25 mg PO BID #60 tab 02/26/17 05/26/17 Rx Isosorbide Mononitrate ER [Imdur] 60 mg PO DAILY #30 tab.er.24h 03/13/17 Rx Aspirin EC [Ecotrin Low Dose] 81 mg PO DAILY 04/11/17 05/26/17 History Metoprolol Tartrate [Lopressor] 50 mg PO BID 05/14/17 05/26/17 History Aspirin 325 mg PO ONCE 05/26/17 05/26/17 History Prasugrel [Effient] 10 mg PO HS 05/26/17 05/26/17 History traMADol HCl [Ultram] 100 mg PO Q8H PRN 05/26/17 05/26/17 History Nitroglycerin Sl Tabs [Nitrostat] 0.4 mg SUBLINGUAL Q5M PRN tab 05/27/17 Rx Prasugrel [Effient] 10 mg PO HS tab 05/27/17 Rx Allergies Allergy/AdvReac Type Severity Reaction Status Date / Time erythromycin base Allergy Severe Swelling Verified 05/26/17 20:12 [Erythromycin Base] codeine Allergy Unknown Swelling Verified 05/26/17 20:12 meclizine Allergy Unknown Unknown Verified 05/26/17 20:12 Penicillins Allergy Unknown Rash/Hives Verified 05/26/17 20:12 shellfish derived Allergy Unknown Anaphylaxis Verified 05/26/17 20:12 Fish Containing Products Allergy Anaphylaxis Verified 05/26/17 20:12 [Fish] Iodinated Contrast- Oral and Allergy Anaphylaxis Verified 05/26/17 20:12 IV Dye cephalexin monohydrate AdvReac Unknown Nausea & Verified 05/26/17 20:12 [From Keflex] Vomiting naproxen AdvReac Unknown Compromises Verified 05/26/17 20:12 Kidney Function atorvastatin calcium AdvReac Myalgia Verified 05/26/17 20:12 [From Lipitor] hydrocodone [From [place]] AdvReac Rapid Verified 05/26/17 20:12 Heart Rate Physical Exam Vitals: Vital Signs Temp Pulse Pulse Resp BP BP Pulse Ox 05/27/17 07:39 97.6 F 76 16 138/70 95 05/27/17 04:00 98.1 F 80 18 156/80 96 05/27/17 00:00 98.2 F 76 18 137/73 98 05/26/17 21:39 98 F 78 18 141/83 97 05/26/17 19:34 98.2 F 85 18 140/80 99 05/26/17 18:03 98.0 F 84 18 134/84 98 05/26/17 15:19 97.8 F 89 18 133/70 95 Intake and Output 05/26/17 05/27/17 05/27/17 22:59 06:59 14:59 Intake Total 760 Balance 760 Intake: IV 160 Heparin Sod,Pork in 0.45% 160 NaCl 25,000 unit In 0.45 % NaCl 1 500ml.bag @ 8.8 UNITS/KG/HR 19.95 mls/hr IV .Q24H JAKE Rx#: [id number] Oral 600 Other: Voiding Method Toilet Toilet # Voids 2 Blood pressure 138/70 heart rate 76 afebrile GENERAL: This is a 41-year-old male in no apparent distress at the time of my examination. Obese. HEENT: Head is atraumatic, normocephalic. Pupils are equal, round. Sclerae anicteric. Conjunctivae are clear. Mucous membranes of the mouth are moist. Neck is supple. There is no jugular venous distention. No carotid bruit is heard. LUNGS: Clear to auscultation no wheezes, rales or rhonchi. No chest wall tenderness is noted on palpation or with deep breathing. HEART: Regular rate and rhythm without murmurs, rubs or gallops. S1 and S2 heard. ABDOMEN: Soft, nontender. Bowel sounds are heard. No organomegaly noted. EXTREMITIES: 2+ peripheral pulses with no evidence of peripheral edema and no calf tenderness noted. NEUROLOGIC: Patient is awake, alert and oriented x3. Results 05/27/17 06:37 05/27/17 06:37 Cardiac Enzymes 05/26/17 05/26/17 Range/Units 16:52 22:35 CK-MB (CK-2) 1.4 1.5 (0.0-2.4) ng/mL Troponin I 0.031 0.016 (0.000-0.034) ng/mL Coagulation 05/26/17 Range/Units 22:35 APTT 22.7 (22.0-30.0) sec Lipids 05/27/17 Range/Units 06:37 Triglycerides 183 H (<150) mg/dL Cholesterol 108 (<200) mg/dL HDL Cholesterol 30 L (40-60) mg/dL CBC 05/27/17 Range/Units 06:37 WBC 5.0 (3.8-10.6) k/uL RBC 4.48 (4.30-5.90) m/uL Hgb 11.8 L (13.0-17.5) gm/dL Hct 36.7 L (39.0-53.0) % Plt Count 180 (150-450) k/uL Comprehensive Metabolic Panel 05/27/17 Range/Units 06:37 Sodium 137 (137-145) mmol/L Potassium 4.8 (3.5-5.1) mmol/L Chloride 102 (98-107) mmol/L Carbon Dioxide 24 (22-30) mmol/L BUN 21 H (9-20) mg/dL Creatinine 1.06 (0.66-1.25) mg/dL Glucose 207 H (74-99) mg/dL Calcium 9.5 (8.4-10.2) mg/dL Intake and Output 05/26/17 05/27/17 05/27/17 22:59 06:59 14:59 Intake Total 760 Balance 760 Intake: IV 160 Heparin Sod,Pork in 0.45% 160 NaCl 25,000 unit In 0.45 % NaCl 1 500ml.bag @ 8.8 UNITS/KG/HR 19.95 mls/hr IV .Q24H JAKE Rx#: [id number] Oral 600 Other: Voiding Method Toilet Toilet # Voids 2 05/27/17 06:37 05/27/17 06:37 Assessment and Plan Assessment: ASSESSMENT 1. Nonspecific chest pain, most likely muscular skeletal in nature secondary to vomiting 2. History of coronary artery disease status post angioplasty 3. Ischemic cardiomyopathy AICD in place 4. Hypertension 5. Diabetes mellitus 6. Obesity PLAN Continue cardiac medications as previously ordered. Patient is stable from a cardiac perspective. He should follow-up with his primary metal bonding crib attendant upon discharge. Thank you kindly for this consultation. Nurse Practitioner note has been reviewed, I agree with a documented findings and plan of care. Patient was seen and examined.
[2017-05-27 15:03] LABS: Hemoglobin A1C 9.7 % (4.0-6.0)
[2017-05-27 23:00] VITALS: BP 138/70; PULSE 76; RESP 16; TEMP 97.6
[2017-05-31] MEDS ORDERED: NON-FORMULARY DRUG (Dulaglutide [Trulicity] 1.5 MG) SQ SCH (09:00)
== END 2017-05-27 10:30 | disposition home or self-care (01) ==
LOC: EC 10:07 → 3OBS 13:26
PROVIDERS: ADMIT Internal Medicine; ATTEND Internal Medicine
DX: R07.9 Chest pain, unspecified (principal); R11.2 Nausea with vomiting, unspecified; K21.9 Gastro-esophageal reflux disease without esophagitis; Z95.5 Presence of coronary angioplasty implant and graft; I25.10 Atherosclerotic heart disease of native coronary artery without angina pectoris; I50.9 Heart failure, unspecified; I25.2 Old myocardial infarction; E78.5 Hyperlipidemia, unspecified; M19.90 Unspecified osteoarthritis, unspecified site; G47.30 Sleep apnea, unspecified; Z99.89 Dependence on other enabling machines and devices; I11.0 Hypertensive heart disease with heart failure; I25.5 Ischemic cardiomyopathy; E11.40 Type 2 diabetes mellitus with diabetic neuropathy, unspecified; K31.84 Gastroparesis; J45.909 Unspecified asthma, uncomplicated; E11.43 Type 2 diabetes mellitus with diabetic autonomic (poly)neuropathy; Z68.41 Body mass index [BMI] 40.0-44.9, adult; F32.9 Major depressive disorder, single episode, unspecified; E66.01 Morbid (severe) obesity due to excess calories; F41.9 Anxiety disorder, unspecified; F43.10 Post-traumatic stress disorder, unspecified; G89.29 Other chronic pain; M54.9 Dorsalgia, unspecified; Z79.84 Long term (current) use of oral hypoglycemic drugs; Z79.899 Other long term (current) drug therapy; Z79.82 Long term (current) use of aspirin; Z79.891 Long term (current) use of opiate analgesic; Z88.8 Allergy status to other drugs, medicaments and biological substances; Z88.6 Allergy status to analgesic agent; Z88.1 Allergy status to other antibiotic agents; Z91.041 Radiographic dye allergy status; Z88.5 Allergy status to narcotic agent; Z88.0 Allergy status to penicillin; Z91.013 Allergy to seafood; Z86.73 Personal history of transient ischemic attack (TIA), and cerebral infarction without residual deficits; Z87.01 Personal history of pneumonia (recurrent); Z91.5 Personal history of self-harm; Z86.14 Personal history of Methicillin resistant Staphylococcus aureus infection; Z95.810 Presence of automatic (implantable) cardiac defibrillator; Z82.0 Family history of epilepsy and other diseases of the nervous system; Z87.11 Personal history of peptic ulcer disease
CPT/HCPCS: 96366 ×9; 96376 ×2; 96365 ×2; 96375 ×2; 93005 ×2; 99291; 36415; 83880; 80061; 80053; 80048; 82550; 82553; 83735 ×2; 84100; 84484; 85025 ×2; 85610; 85730; 83036; 71046; G0378 ×2; J1644 ×2; J2405

== ENCOUNTER 2017-06-05 01:56 | Observation (INO) | payer MEDICARE, OTHER ==
[2017-06-05] MEDS ORDERED: ASPIRIN 81 MG PO STA (02:20)
--- NOTE | 2017-06-05 02:25 | ED ---
General Adult HPI - General Source: patient, RN notes reviewed, old records reviewed Mode of arrival: wheelchair Limitations: no limitations <Frederick Garcia - Last Filed: 06/05/17 03:59> <Ayush Webber - Last Filed: 06/05/17 04:07> - General Chief complaint: Weakness Stated complaint: weakness Time Seen by Provider: 06/05/17 02:19 - History of Present Illness Initial comments: Patient is a 41-year-old male with significant past medical history for cardiac disease, presenting with chest pain that began earlier today. He states that starting yesterday early in the morning began not feeling like himself. States that he feels like he is weak. Describes it as feeling of being put under anesthesia. He states it's a warm feeling throughout his body. States chest pain started earlier tonight with some radiation to the left arm. Patient does admit to history of having defibrillator which has not gone off. Patient does admit to feeling nauseated. He admits to sweats. However, he states he does have nightly sweats. He denies any liquids or so should symptoms currently. Patient denies any recent fever, chills, shortness of breath, back pain, abdominal pain, vomiting, dysuria or hematuria, constipation or diarrhea, headaches or visual changes, or any other complaints. (Frederick Garcia) - Related Data Home Medications Medication Instructions Recorded Confirmed Nitroglycerin Sl Tabs [Nitrostat] 0.4 mg SUBLINGUAL Q5M PRN 10/13/13 05/26/17 metFORMIN HCL 1,000 mg PO BID 07/03/15 05/26/17 Omeprazole [PriLOSEC] 40 mg PO HS 08/13/15 05/26/17 Dulaglutide [Trulicity] 1.5 mg SQ OROZCO 03/10/16 05/26/17 Glimepiride 4 mg PO BID 03/10/16 05/26/17 Rosuvastatin Calcium 40 mg PO HS 05/05/16 05/26/17 Ranolazine [Ranexa] 1,000 mg PO BID 06/09/16 05/26/17 Primidone [Mysoline] 100 mg PO HS 06/30/16 05/26/17 Loperamide [Imodium] 2 mg PO TID 10/20/16 05/26/17 Cholecalciferol (Vitamin D3) 2,000 unit PO DAILY 11/07/16 05/26/17 [Vitamin D3] Linagliptin [Tradjenta] 5 mg PO HS 12/19/16 05/26/17 ARIPiprazole [ARIPiprazole Odt] 15 mg PO HS 02/14/17 05/26/17 Albuterol Inhaler [Ventolin Hfa 2 puff INHALATION RT-QID PRN 02/14/17 05/26/17 Inhaler] Gabapentin [Neurontin] 400 mg PO TID 02/24/17 05/26/17 Aspirin EC [Ecotrin Low Dose] 81 mg PO DAILY 04/11/17 05/26/17 Metoprolol Tartrate [Lopressor] 50 mg PO BID 05/14/17 05/26/17 Aspirin 325 mg PO ONCE 05/26/17 05/26/17 Prasugrel [Effient] 10 mg PO HS 05/26/17 05/26/17 traMADol HCl [Ultram] 100 mg PO Q8H PRN 05/26/17 05/26/17 Previous Rx's Medication Instructions Recorded Sertraline HCl [Zoloft] 200 mg PO DAILY #28 01/27/17 hydrALAZINE HCL [Apresoline] 25 mg PO BID #60 tab 02/26/17 Isosorbide Mononitrate ER [Imdur] 60 mg PO DAILY #30 tab.er.24h 03/13/17 Nitroglycerin Sl Tabs [Nitrostat] 0.4 mg SUBLINGUAL Q5M PRN tab 05/27/17 Prasugrel [Effient] 10 mg PO HS tab 05/27/17 Allergies Allergy/AdvReac Type Severity Reaction Status Date / Time erythromycin base Allergy Severe Swelling Verified 06/05/17 02:04 [Erythromycin Base] codeine Allergy Unknown Swelling Verified 06/05/17 02:04 meclizine Allergy Unknown Unknown Verified 06/05/17 02:04 Penicillins Allergy Unknown Rash/Hives Verified 06/05/17 02:04 shellfish derived Allergy Unknown Anaphylaxis Verified 06/05/17 02:04 Fish Containing Products Allergy Anaphylaxis Verified 06/05/17 02:04 [Fish] Iodinated Contrast- Oral and Allergy Anaphylaxis Verified 06/05/17 02:04 IV Dye cephalexin monohydrate AdvReac Unknown Nausea & Verified 06/05/17 02:04 [From Keflex] Vomiting naproxen AdvReac Unknown Compromises Verified 06/05/17 02:04 Kidney Function atorvastatin calcium AdvReac Myalgia Verified 06/05/17 02:04 [From Lipitor] hydrocodone [From [place]] AdvReac Rapid Verified 05/26/17 20:12 Heart Rate Review of Systems ROS Other: All systems not noted in ROS Statement are negative. <Frederick Garcia - Last Filed: 06/05/17 03:59> ROS Other: All systems not noted in ROS Statement are negative. <Ayush Webber - Last Filed: 06/05/17 04:07> ROS Statement: Those systems with pertinent positive or pertinent negative responses have been documented in the HPI. Past Medical History Past Medical History: Asthma, Coronary Artery Disease (CAD), Chest Pain / Angina , Heart Failure, CVA/TIA, Diabetes Mellitus, GERD/Reflux, Hyperlipidemia, Hypertension, Myocardial Infarction ([place]), Osteoarthritis (OA), Pneumonia, Skin Disorder, Sleep Apnea/CPAP/BIPAP Additional Past Medical History / Comment(s): Coronary artery disease with multiple vessel disease, ischemic cardiomyopathy, diabetic neuropathy bilateral hands and feet, hypertensive cardiovascular disease, chronic gastritis, degenerative disc disease, chronic back pain, depression with hx of suicide attempts, GASTROPARESIS, PSORIASES,NIDDM type II, UTI, migraines, TIA, PUD, hiatal hernia, L rotator cuff tear, bronchitis, pseudoaneurysm L groin post procedure. 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 Past Anesthesia/Blood Transfusion Reactions: No Reported Reaction Additional Past Anesthesia/Blood Transfusion Reaction / Comment(s): . Date of Last Stent Placement:: 12/23/16 Type of Cardiac Device: Biventricular Pacemaker, AICD Device Placement Date:: 09/19/15 Past Psychological History: Anxiety, Depression, PTSD Smoking Status: Never smoker Past Alcohol Use History: None Reported Past Drug Use History: None Reported - Past Family History Mother Family Medical History: Coronary Artery Disease (CAD), Myocardial Infarction ([place] ) Additional Family Medical History / Comment(s): 7 [place] and faulty heart valve. Pt does not know the age when mother had her MIs. Father History Unknown: Yes Additional Family Medical History / Comment(s): Does not know who father is Brother(s) Family Medical History: Congestive Heart Failure (CHF), Myocardial Infarction ( [place]) Additional Family Medical History / Comment(s): Parkinsons. Pt does not know at what age his brother had a [place] Patient has Family Medical History: No Reported History Additional Family Medical History / Comment(s): There is a strong family history for heart disease, hypertension, and diabetes. <Frederick Garcia - Last Filed: 06/05/17 03:59> General Exam Limitations: no limitations <Frederick Garcia - Last Filed: 06/05/17 03:59> <Ayush Webber - Last Filed: 06/05/17 04:07> - General Exam Comments Initial Comments: General: The patient is awake and alert, in no distress, and does not appear acutely ill. Eye: Pupils are equal, round and reactive to light, extra-ocular movements are intact. No nystagmus. There is normal conjunctiva bilaterally. No signs of icterus. Ears, nose, mouth and throat: There are moist mucous membranes and no oral lesions. Neck: The neck is supple, there is no tenderness or JVD. Cardiovascular: There is a regular rate and rhythm. No murmur, rub or gallop is appreciated. Respiratory: Lungs are clear to auscultation, respirations are non-labored, breath sounds are equal. No wheezes, stridor, rales, or rhonchi. Gastrointestinal: Soft, non-distended, non-tender abdomen without masses or organomegaly noted. There is no rebound or guarding present. No CVA tenderness. Bowel sounds are unremarkable. Musculoskeletal: Normal ROM, no tenderness. Strength 5/5. Sensation intact. Pulses equal bilaterally 2+. Neurological: A&O x 3. CN II-XII intact, There are no obvious motor or sensory deficits. Coordination appears grossly intact. Speech is normal. Skin: Skin is warm and dry and no rashes or lesions are noted. Psychiatric: Cooperative, appropriate mood & affect, normal judgment. (Frederick Garcia) Course <Frederick Garcia - Last Filed: 06/05/17 03:59> <Ayush Webber - Last Filed: 06/05/17 04:07> Vital Signs 06/05/17 06/05/17 06/05/17 01:58 03:21 03:33 Temperature 98.8 F Pulse Rate 83 81 80 Respiratory 16 18 18 Rate Blood Pressure 116/73 109/60 123/66 O2 Sat by Pulse 98 95 99 Oximetry 06/05/17 03:41 Temperature Pulse Rate 79 Respiratory 18 Rate Blood Pressure 117/62 O2 Sat by Pulse 97 Oximetry - Reevaluation(s) Reevaluation #1: 06/05/17 04:06 PA supervision: I did personally evaluate the patient did discuss the admission with him. Patient presents with complaints of chest pain he does have a history of CAD. He will be admitted to city call physician Dr. Sánchez. I do agree with the assessment and plan. (Ayush Webber) EKG Findings - EKG Comments: EKG Findings:: EKG performed at 24: Ventricular paced rhythm at 80 beats per minute. CA interval 148. QRS 118. QT/QTC 390/449. No acute ST change. <Frederick Garcia - Last Filed: 06/05/17 03:59> Medical Decision Making - Lab Data Result diagrams: 06/05/17 02:56 06/05/17 02:56 <Frederick Garcia - Last Filed: 06/05/17 03:59> - Lab Data Result diagrams: 06/05/17 02:56 06/05/17 02:56 <Ayush Webber - Last Filed: 06/05/17 04:07> - Medical Decision Making Patient's labs been reviewed negative cardiac enzymes. Patient does admit that chest pain starting earlier tonight. Does have history of cardiac disease will be admitted for serial enzymes. EKG showing no acute changes at this time. ( Frederick Garcia) - Lab Data Lab Results 06/05/17 06/05/17 06/05/17 Range/Units 02:56 02:56 02:56 WBC 6.4 (3.8-10.6) k/uL RBC 5.01 (4.30-5.90) m/uL Hgb 13.3 (13.0-17.5) gm/dL Hct 40.1 (39.0-53.0) % MCV 80.1 (80.0-100.0) fL MCH 26.5 (25.0-35.0) pg MCHC 33.1 (31.0-37.0) g/dL RDW 14.3 (11.5-15.5) % Plt Count 271 (150-450) k/uL Neutrophils % 61 % Lymphocytes % 30 % Monocytes % 5 % Eosinophils % 3 % Basophils % 1 % Neutrophils # 3.9 (1.3-7.7) k/uL Lymphocytes # 1.9 (1.0-4.8) k/uL Monocytes # 0.3 (0-1.0) k/uL Eosinophils # 0.2 (0-0.7) k/uL Basophils # 0.1 (0-0.2) k/uL Hypochromasia Slight Poikilocytosis Slight PT (9.0-12.0) sec INR (<1.2) APTT (22.0-30.0) sec Sodium 137 (137-145) mmol/L Potassium 5.0 (3.5-5.1) mmol/L Chloride 100 (98-107) mmol/L Carbon Dioxide 21 L (22-30) mmol/L Anion Gap 16 mmol/L BUN 24 H (9-20) mg/dL Creatinine 1.70 H (0.66-1.25) mg/dL Est GFR (MDRD) Af Amer 54 (>60 ml/min/1.73 sqM) Est GFR (MDRD) Non-Af 45 (>60 ml/min/1.73 sqM) Glucose 293 H (74-99) mg/dL Calcium 9.7 (8.4-10.2) mg/dL Magnesium 1.4 L (1.6-2.3) mg/dL Total Bilirubin 0.4 (0.2-1.3) mg/dL AST 21 (17-59) U/L ALT 37 (21-72) U/L Alkaline Phosphatase 106 (38-126) U/L Total Creatine Kinase 134 (55-170) U/L CK-MB (CK-2) 1.5 (0.0-2.4) ng/mL CK-MB (CK-2) Rel Index 1.1 Troponin I 0.019 (0.000-0.034) ng/mL Total Protein 6.4 (6.3-8.2) g/dL Albumin 3.9 (3.5-5.0) g/dL 06/05/17 Range/Units 02:56 WBC (3.8-10.6) k/uL RBC (4.30-5.90) m/uL Hgb (13.0-17.5) gm/dL Hct (39.0-53.0) % MCV (80.0-100.0) fL MCH (25.0-35.0) pg MCHC (31.0-37.0) g/dL RDW (11.5-15.5) % Plt Count (150-450) k/uL Neutrophils % % Lymphocytes % % Monocytes % % Eosinophils % % Basophils % % Neutrophils # (1.3-7.7) k/uL Lymphocytes # (1.0-4.8) k/uL Monocytes # (0-1.0) k/uL Eosinophils # (0-0.7) k/uL Basophils # (0-0.2) k/uL Hypochromasia Poikilocytosis PT 9.5 (9.0-12.0) sec INR 1.0 (<1.2) APTT 20.4 L (22.0-30.0) sec Sodium (137-145) mmol/L Potassium (3.5-5.1) mmol/L Chloride (98-107) mmol/L Carbon Dioxide (22-30) mmol/L Anion Gap mmol/L BUN (9-20) mg/dL Creatinine (0.66-1.25) mg/dL Est GFR (MDRD) Af Amer (>60 ml/min/1.73 sqM) Est GFR (MDRD) Non-Af (>60 ml/min/1.73 sqM) Glucose (74-99) mg/dL Calcium (8.4-10.2) mg/dL Magnesium (1.6-2.3) mg/dL Total Bilirubin (0.2-1.3) mg/dL AST (17-59) U/L ALT (21-72) U/L Alkaline Phosphatase (38-126) U/L Total Creatine Kinase (55-170) U/L CK-MB (CK-2) (0.0-2.4) ng/mL CK-MB (CK-2) Rel Index Troponin I (0.000-0.034) ng/mL Total Protein (6.3-8.2) g/dL Albumin (3.5-5.0) g/dL Disposition Time of Disposition: 04:00 <Frederick Garcia - Last Filed: 06/05/17 03:59> <Ayush Webber - Last Filed: 06/05/17 04:07> Clinical Impression: Chest pain Disposition: ADMITTED IP TO THIS HOSP Condition: Stable Referrals: Junie New MD [Primary Care Provider] - 1-2 days
[2017-06-05 03:10] LABS: Basophils # (A) 0.1 k/uL (0-0.2); Basophils % (A) 1 %; Eosinophils # (A) 0.2 k/uL (0-0.7); Eosinophils % (A) 3 %; HCT 40.1 % (39.0-53.0); HGB 13.3 gm/dL (13.0-17.5); Hypochromasia Slight; Lymphocytes # (A) 1.9 k/uL (1.0-4.8); Lymphocytes % (A) 30 %; MCH 26.5 pg (25.0-35.0); MCHC 33.1 g/dL (31.0-37.0); MCV 80.1 fL (80.0-100.0); Mean Platelet Volume 7.3; Monocytes # (A) 0.3 k/uL (0-1.0); Monocytes % (A) 5 %; Neutrophils # (A) 3.9 k/uL (1.3-7.7); Neutrophils % (A) 61 %; Platelet Count 271 k/uL (150-450); Poikilocytosis Slight; RBC 5.01 m/uL (4.30-5.90); RDW 14.3 % (11.5-15.5); WBC 6.4 k/uL (3.8-10.6)
[2017-06-05 03:20] LABS: Albumin 3.9 g/dL (3.5-5.0); Calcium 9.7 mg/dL (8.4-10.2); Magnesium 1.4 mg/dL (1.6-2.3); Total Bilirubin 0.4 mg/dL (0.2-1.3); Total Protein 6.4 g/dL (6.3-8.2)
[2017-06-05] MEDS: NITROGLYCERIN SL TABS 0.4 MG TAB SUBLINGUAL STA ×3 (03:21→03:42)
[2017-06-05 03:37] LABS: Prothrombin Time 9.5 sec (9.0-12.0)
[2017-06-05 03:46] LABS: Creatine Kinase MB 1.5 ng/mL (0.0-2.4); Troponin I 0.019 ng/mL (0.000-0.034)
[2017-06-05 03:47] LABS: Partial Thromboplastin Time 20.4 sec (22.0-30.0)
[2017-06-05] MEDS ORDERED: MORPHINE SULFATE 5 MG/ML SYRINGE IVP PRN (03:50)
[2017-06-05] MEDS ORDERED: SODIUM CHLORIDE 0.9% 1,000 ML IV ONE (03:50)
[2017-06-05] MEDS ORDERED: HEPARIN SODIUM,PORCINE 5,000 UNIT/ML 1 ML VIAL IV ONE (03:50)
[2017-06-05] MEDS ORDERED: NITROGLYCERIN SL TABS 0.4 MG TAB SUBLINGUAL PRN (03:50)
[2017-06-05] MEDS ORDERED: MORPHINE SULFATE 5 MG/ML SYRINGE IVP STA (03:53)
[2017-06-05] MEDS ORDERED: HEPARIN SOD,PORK IN 0.45% NACL 25,000 UNIT in 0.45% NACL 1 500ML.BAG IV SCH (04:00)
--- NOTE | 2017-06-05 04:23 | XR ---
EXAM: XR Chest, 2 Views CLINICAL HISTORY: Reason: Chest Pain TECHNIQUE: Frontal and lateral views of the chest. COMPARISON: 02/05/17 FINDINGS: Lungs: Question developing right lower lung infiltrate versus atelectasis. Pleural space: Unremarkable. No pneumothorax. Heart: Unremarkable. No cardiomegaly. Mediastinum: Unremarkable. Bones/joints: Unremarkable. Tubes, lines and devices: Left-sided cardiac device is noted with intact leads. IMPRESSION: Question developing right lower lung infiltrate versus atelectasis.
[2017-06-05] MEDS ORDERED: HEPARIN SODIUM,PORCINE 5,000 UNIT/ML 1 ML VIAL IV PRN (06:04)
[2017-06-05 06:34] LABS: Glucose,Whole Blood 302 mg/dL (75-99)
[2017-06-05] MEDS ORDERED: MORPHINE SULFATE 2 MG/ML SYRINGE IVP PRN (08:59)
--- NOTE | 2017-06-05 09:27 | CT ---
EXAMINATION TYPE: CT chest wo con DATE OF EXAM: 06/05/2017 COMPARISON: Chest x-ray 06/05/2017, prior chest CT 12/15/2011 HISTORY: Chest Pain CT DLP: 825 mGycm. Automated Exposure Control for Dose Reduction was Utilized. TECHNIQUE: CT scan of the thorax is performed without IV contrast. FINDINGS: Lack of contrast may compromise sensitivity. LUNGS: The lungs are grossly clear, there is no concerning parenchymal mass or nodule identified. T here is no pleural effusion or pneumothorax seen. The tracheobronchial tree is patent. MEDIASTINUM: Lack of IV contrast is noted to limit evaluation for mediastinal and especially hilar ad enopathy. There are no definitive greater than 1 cm hilar or mediastinal lymph nodes. No cardiomega ly or pericardial effusion is seen. There are extensive coronary artery calcifications. Intracardiac defibrillator lead present within the right ventricle, coronary sinus, right atrium. OTHER: Patient is post cholecystectomy. IMPRESSION: Postop changes. Coronary artery disease. Noncontrast exam. No evident pneumonia
[2017-06-05] MEDS: INSULIN ASPART 100 UNIT/ML 1 ML 10 ML VIAL SQ SCH ×2 (09:35→14:26)
[2017-06-05] MEDS ORDERED: METOPROLOL TARTRATE 25 MG TAB PO SCH (09:45)
[2017-06-05] MEDS ORDERED: ALBUTEROL NEBULIZED 2.5 MG/3 ML INHALATION PRN (10:26)
[2017-06-05] MEDS ORDERED: traMADol 50 MG TAB PO PRN (10:26)
[2017-06-05] MEDS ORDERED: RANOLAZINE 500 MG TAB.ER.12H PO SCH (10:30)
[2017-06-05] MEDS ORDERED: GLIMEPIRIDE 4 MG TAB PO SCH (10:30)
[2017-06-05] MEDS ORDERED: SERTRALINE 100 MG TAB PO SCH (10:30)
[2017-06-05] MEDS ORDERED: GABAPENTIN 400 MG CAP PO SCH (10:30)
[2017-06-05 11:07] LABS: Creatine Kinase MB 1.4 ng/mL (0.0-2.4); Troponin I 0.015 ng/mL (0.000-0.034)
[2017-06-05 11:44] VITALS: BP 127/72; PULSE 76; RESP 16; TEMP 97.3
--- NOTE | 2017-06-05 11:48 | P.CRDCN ---
History of Present Illness Consult date: 06/05/17 History of present illness: Mr. Dunham is a pleasant 41-year-old male past medical history significant for coronary artery disease with prior angioplasty of the circumflex as well as LAD most recent cardiac catheterization performed in [place] December 2016, ischemic cardiomyopathy with AICD in place, hypertension, dyslipidemia, diabetes, gastroesophageal reflux disease, asthma, CVA, sleep apnea and morbid obesity. He follows with Dr. Peres out of [facility]. We have been asked to see him in consultation for complaints of chest pain. He states the pain is very atypical for him and is mostly up in his upper chest and neck and throat. It is associated with mild diaphoresis, nausea, dizziness and shortness of breath. He denies palpitations. 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 At the time of my exam he is chest pain-free. EKG on arrival reveals biventricular pacing. Most recent echo reveals mild MR, TR, pulmonary hypertension with EF 40-45%. Current cardiac medications include hydralazine 25 mg twice a day, Ranexa 1000 mg twice a day, primidone 100 mg daily, Effient 10 mg daily, Lopressor 50 mg twice a day, Imdur 60 mg daily and aspirin 81 mg daily. Review of Systems At the time of my exam: CONSTITUTIONAL: Denies fever. Denies chills. EYES: Denies blurred vision. Denies vision changes. Denies eye pain. EARS, NOSE, MOUTH & THROAT: Denies headache. Denies sore throat. Denies ear pain. CARDIOVASCULAR: Denies chest pain. Denies shortness of breath. Denies orthopnea. Denies PND. Denies palpitations. RESPIRATORY: Denies cough. GASTROINTESTINAL: Denies abdominal pain. Denies diarrhea. Denies constipation. Denies nausea. Denies vomiting. MUSCULOSKELETAL: Denies myalgias. INTEGUMENTARY: Denies pruitis. Denies rash. NEUROLOGIC: Denies numbness. Denies tingling. Denies weakness. PSYCHIATRIC: Denies anxiety. Denies depression. ENDOCRINE: Denies fatigue. Denies weight change. Denies polydipsia. Denies polyurina. GENITOURINARY: Denies burning, hematuria or urgency with micturation. HEMATOLOGIC: Denies history of anemia. Denies bleeding. Past Medical History Past Medical History: Asthma, Coronary Artery Disease (CAD), Chest Pain / Angina , Heart Failure, CVA/TIA, Diabetes Mellitus, GERD/Reflux, Hyperlipidemia, Hypertension, Myocardial Infarction (ID), Osteoarthritis (OA), Pneumonia, Skin Disorder, Sleep Apnea/CPAP/BIPAP Additional Past Medical History / Comment(s): Coronary artery disease with multiple vessel disease, ischemic cardiomyopathy, diabetic neuropathy bilateral hands and feet, hypertensive cardiovascular disease, SHELIA with no device, chronic gastritis,degenerative disc disease, chronic back pain, depression with hx of suicide attempts, GASTROPARESIS, PSORIASES,NIDDM type II, UTI, migraines, TIA, PUD, hiatal hernia, L rotator cuff tear, bronchitis, pseudoaneurysm L groin post procedure. 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 Past Anesthesia/Blood Transfusion Reactions: No Reported Reaction Additional Past Anesthesia/Blood Transfusion Reaction / Comment(s): . Date of Last Stent Placement:: 12/23/16 Type of Cardiac Device: Biventricular Pacemaker, AICD Device Placement Date:: 09/19/15 Smoking Status: Never smoker - Past Family History Mother Family Medical History: Coronary Artery Disease (CAD), Myocardial Infarction (ID ) Additional Family Medical History / Comment(s): 7 ID and faulty heart valve. Pt does not know the age when mother had her MIs. Father History Unknown: Yes Additional Family Medical History / Comment(s): Does not know who father is Brother(s) Family Medical History: Congestive Heart Failure (CHF), Myocardial Infarction ( ID) Additional Family Medical History / Comment(s): Parkinsons. Pt does not know at what age his brother had a ID Patient has Family Medical History: No Reported History Additional Family Medical History / Comment(s): There is a strong family history for heart disease, hypertension, and diabetes. Medications and Allergies Home Medications Medication Instructions Recorded Confirmed Type Nitroglycerin Sl Tabs [Nitrostat] 0.4 mg SUBLINGUAL Q5M PRN 10/13/13 06/05/17 History metFORMIN HCL 1,000 mg PO BID 07/03/15 06/05/17 History Omeprazole [PriLOSEC] 40 mg PO HS 08/13/15 06/05/17 History Dulaglutide [Trulicity] 1.5 mg SQ OROZCO 03/10/16 06/05/17 History Glimepiride 4 mg PO BID 03/10/16 06/05/17 History Rosuvastatin Calcium 40 mg PO HS 05/05/16 06/05/17 History Ranolazine [Ranexa] 1,000 mg PO BID 06/09/16 06/05/17 History Primidone [Mysoline] 100 mg PO HS 06/30/16 06/05/17 History Loperamide [Imodium] 2 mg PO TID 10/20/16 06/05/17 History Cholecalciferol (Vitamin D3) 2,000 unit PO DAILY 11/07/16 06/05/17 History [Vitamin D3] Linagliptin [Tradjenta] 5 mg PO HS 12/19/16 06/05/17 History Sertraline HCl [Zoloft] 200 mg PO DAILY #28 01/27/17 06/05/17 Rx ARIPiprazole [ARIPiprazole Odt] 15 mg PO HS 02/14/17 06/05/17 History Albuterol Inhaler [Ventolin Hfa 2 puff INHALATION RT-QID PRN 02/14/17 06/05/17 History Inhaler] Gabapentin [Neurontin] 400 mg PO TID 02/24/17 06/05/17 History hydrALAZINE HCL [Apresoline] 25 mg PO BID #60 tab 02/26/17 06/05/17 Rx Isosorbide Mononitrate ER [Imdur] 60 mg PO DAILY #30 tab.er.24h 03/13/17 Rx Aspirin EC [Ecotrin Low Dose] 81 mg PO DAILY 04/11/17 06/05/17 History Metoprolol Tartrate [Lopressor] 50 mg PO BID 05/14/17 06/05/17 History Prasugrel [Effient] 10 mg PO HS 05/26/17 06/05/17 History traMADol HCl [Ultram] 100 mg PO Q8H PRN 05/26/17 06/05/17 History Allergies Allergy/AdvReac Type Severity Reaction Status Date / Time erythromycin base Allergy Severe Swelling Verified 06/05/17 08:20 [Erythromycin Base] codeine Allergy Unknown Swelling Verified 06/05/17 08:20 meclizine Allergy Unknown Unknown Verified 06/05/17 08:20 Penicillins Allergy Unknown Rash/Hives Verified 06/05/17 08:20 shellfish derived Allergy Unknown Anaphylaxis Verified 06/05/17 08:20 Fish Containing Products Allergy Anaphylaxis Verified 06/05/17 08:20 [Fish] Iodinated Contrast- Oral and Allergy Anaphylaxis Verified 06/05/17 08:20 IV Dye cephalexin monohydrate AdvReac Unknown Nausea & Verified 06/05/17 08:20 [From Keflex] Vomiting naproxen AdvReac Unknown Compromises Verified 06/05/17 08:20 Kidney Function atorvastatin calcium AdvReac Myalgia Verified 06/05/17 08:20 [From Lipitor] hydrocodone [From [place]] AdvReac Rapid Verified 06/05/17 08:20 Heart Rate Physical Exam Vitals: Vital Signs Temp Pulse Pulse Resp BP BP Pulse Ox 06/05/17 08:00 18 06/05/17 06:33 98 F 67 18 117/61 96 06/05/17 06:00 65 16 109/64 98 06/05/17 04:23 98.4 F 76 18 109/51 97 06/05/17 03:41 79 18 117/62 97 06/05/17 03:33 80 18 123/66 99 06/05/17 03:21 81 18 109/60 95 06/05/17 01:58 98.8 F 83 16 116/73 98 Intake and Output 06/04/17 06/05/17 06/05/17 22:59 06:59 14:59 Other: Voiding Method Toilet Weight 114.305 kg Blood pressure 117/61 heart rate 65 afebrile GENERAL: This is a 41-year-old male in no apparent distress at the time of my examination. Morbidly obese. HEENT: Head is atraumatic, normocephalic. Pupils are equal, round. Sclerae anicteric. Conjunctivae are clear. Mucous membranes of the mouth are moist. Neck is supple. There is no jugular venous distention. No carotid bruit is heard. LUNGS: Clear to auscultation no wheezes, rales or rhonchi. No chest wall tenderness is noted on palpation or with deep breathing. HEART: Regular rate and rhythm without murmurs, rubs or gallops. S1 and S2 heard. ABDOMEN: Soft, nontender. Bowel sounds are heard. No organomegaly noted. EXTREMITIES: 2+ peripheral pulses with no evidence of peripheral edema and no calf tenderness noted. NEUROLOGIC: Patient is awake, alert and oriented x3. Results 06/05/17 02:56 06/05/17 02:56 Cardiac Enzymes 06/05/17 06/05/17 06/05/17 Range/Units 02:56 02:56 10:02 AST 21 (17-59) U/L CK-MB (CK-2) 1.5 1.4 (0.0-2.4) ng/mL Troponin I 0.019 0.015 (0.000-0.034) ng/mL Coagulation 06/05/17 06/05/17 Range/Units 02:56 10:02 PT 9.5 (9.0-12.0) sec APTT 20.4 L 25.0 (22.0-30.0) sec CBC 06/05/17 Range/Units 02:56 WBC 6.4 (3.8-10.6) k/uL RBC 5.01 (4.30-5.90) m/uL Hgb 13.3 (13.0-17.5) gm/dL Hct 40.1 (39.0-53.0) % Plt Count 271 (150-450) k/uL Comprehensive Metabolic Panel 06/05/17 Range/Units 02:56 Sodium 137 (137-145) mmol/L Potassium 5.0 (3.5-5.1) mmol/L Chloride 100 (98-107) mmol/L Carbon Dioxide 21 L (22-30) mmol/L BUN 24 H (9-20) mg/dL Creatinine 1.70 H (0.66-1.25) mg/dL Glucose 293 H (74-99) mg/dL Calcium 9.7 (8.4-10.2) mg/dL AST 21 (17-59) U/L ALT 37 (21-72) U/L Alkaline Phosphatase 106 (38-126) U/L Total Protein 6.4 (6.3-8.2) g/dL Albumin 3.9 (3.5-5.0) g/dL Current Medications Generic Name Dose Route Start Last Admin Trade Name Freq PRN Reason Stop Dose Admin Albuterol Sulfate 2.5 mg 06/05/17 10:26 Ventolin Nebulized INHALATION RT-QID PRN Shortness Of Breath Aripiprazole 15 mg 06/05/17 21:00 Abilify PO HS [facility] Aspirin 81 mg 06/06/17 09:00 Aspirin PO DAILY [facility] Cholecalciferol 2,000 unit 06/06/17 09:00 Vitamin D3 PO DAILY JAKE Gabapentin 400 mg 06/05/17 10:30 06/05/17 10:51 Neurontin PO 400 mg TID JAKE Administration Glimepiride 4 mg 06/05/17 10:30 06/05/17 10:51 Amaryl PO 4 mg AC-BID JAKE Administration Heparin Sodium (Porcine) 0 unit 06/05/17 06:04 Heparin IV PER PROTOCOL PRN Low PTT Protocol Hydralazine HCl 25 mg 06/05/17 21:00 Apresoline PO BID [facility] Heparin Sodium/Sodium Chloride 500 mls @ 20.11 mls/hr 06/05/17 04:00 04:19 25,000 unit/ Sodium Chloride IV 8.75 units/kg/hr .Q24H JAKE 20 mls/hr Protocol Administration 8.8 UNITS/KG/HR Sodium Chloride 1,000 mls @ 20 mls/hr 06/05/17 03:50 06/05/17 04:18 Saline 0.9% IV 06/06/17 03:49 20 mls/hr .Q24H ONE Administration Insulin Aspart 0 unit 06/05/17 07:30 06/05/17 09:35 Novolog SQ 8 unit ACHS JAKE Administration Protocol Linagliptin 5 mg 06/05/17 21:00 Tradjenta PO HS JAKE Loperamide HCl 2 mg 06/05/17 16:00 Imodium PO TID [facility] Metformin HCl 1,000 mg 06/05/17 17:30 Glucophage PO AC-BID [facility] Metoprolol Tartrate 25 mg 06/05/17 09:45 06/05/17 10:51 Lopressor PO 25 mg BID JAKE Administration Morphine Sulfate 2 mg 06/05/17 08:59 Morphine Sulfate (Inj) IVP Q5M PRN Chest Pain Nitroglycerin 0.4 mg 06/05/17 03:50 Nitrostat SUBLINGUAL Q5M PRN Chest Pain Non-Formulary Medication 1.5 mg 06/07/17 09:00 Dulaglutide [Trulicity] SQ OROZCO JAKE Non-Formulary Medication 40 mg 06/05/17 21:00 Rosuvastatin Calcium [Rosuvastatin Calcium] PO HS JAKE Pantoprazole Sodium 40 mg 06/05/17 21:00 Protonix PO HS JAKE Prasugrel 10 mg 06/05/17 21:00 Effient PO HS JAKE Primidone 100 mg 06/05/17 21:00 Mysoline PO HS JAKE Ranolazine 1,000 mg 06/05/17 10:30 06/05/17 10:51 Ranexa PO 1,000 mg BID JAKE Administration Sertraline HCl 200 mg 06/05/17 10:30 06/05/17 10:50 Zoloft PO 200 mg DAILY JAKE Administration Tramadol HCl 100 mg 06/05/17 10:26 Ultram PO Q8H PRN pain Intake and Output 06/04/17 06/05/17 06/05/17 22:59 06:59 14:59 Other: Voiding Method Toilet Weight 114.305 kg 06/05/17 02:56 06/05/17 02:56 Assessment and Plan Assessment: ASSESSMENT 1. Chest pain, atypical with negative cardiac enzymes 2. History of known coronary artery disease most recent cardiac catheterization December 2016 at [facility] with Dr. Peres 3. Ischemic cardiomyopathy status post AICD placement 4. Essential hypertension 5. Diabetes mellitus PLAN An acute coronary event has been ruled out with negative cardiac enzymes. Lopressor should be decreased to 25mg PO BID secondary to c/o dizziness. Follow-up with Dr. Peres upon discharge. Thank you kindly for this consultation. Nurse Practitioner note has been reviewed, I agree with a documented findings and plan of care. Patient was seen and examined.
[2017-06-05 12:27] LABS: Glucose,Whole Blood 196 mg/dL (75-99)
--- NOTE | 2017-06-05 14:29 | HP ---
HISTORY AND PHYSICAL CHIEF COMPLAINT: A 41-year-old white male with coronary artery disease, presents with some atypical chest pain, not feeling like himself, he just mainly felt weak, did not have any chest pain, just felt weak. He came into hospital and they admitted him to rule out myocardial infarction. Cardiology is going to see him shortly. Chest x-ray was read as possible infiltrate. CAT scan of the chest is pending. HOME MEDICATIONS INCLUDE: 1. Metformin 1000 b.i.d. 2. Omeprazole 40 mg daily. 3. Trulicity 1.5 mg subcu weekly. 4. Glimepiride 4 mg b.i.d. 5. Lovastatin 40 mg daily. 6. Ranexa 1000 mg b.i.d. 7. Mysoline 100 daily. 8. Vitamin D3 two thousand units daily. 9. Tradjenta 5 mg daily. 10. mg daily. 11.Ventolin HFA 2 puffs q.4 hours p.r.n. 12.Neurontin 400 t.i.d. 13.Aspirin 81 mg daily. 14.Lopressor 50 b.i.d. 15.Aspirin 325 daily. 16.Effient 10 mg daily. 17.Tramadol 100 mg q.8 p.r.n. ALLERGIES: ERYTHROMYCIN, CODEINE, MECLIZINE, PENICILLIN, SHELLFISH, NAPROSYN, KEFLEX, ATORVASTATIN, NORCO. 14 POINT REVIEW OF SYSTEM: Negative except for as mentioned in HPI. PAST MEDICAL HISTORY: Coronary artery disease, angina, heart failure, diabetes mellitus, GERD, dyslipidemia, hypertension myocardial infarction, osteoarthritis, sleep apnea, asthma, gastroparesis, psoriasis, migraines, TIA, peptic ulcer disease, rotator cuff repair, pseudoaneurysm left groin, history of MRSA, AICD, appendectomy, cholecystectomy, heart catheterization with stent, hernia repair, biventricular pacemaker. FAMILY HISTORY: Mother coronary artery disease. Father unknown. Brother congestive heart failure, myocardial infarction, Parkinson's disease. PHYSICAL EXAM: Temp 98.8, pulse 80 to 83, respiratory 16 to 18, blood pressure 109 to 130s/60s to 70s, O2 98% to 99% on room air. PSYCH: Fair mood and affect. Endocrine is BMI is over 40. NEUROLOGIC: Alert and oriented x3. GI: Soft, nontender. LUNGS: Scattered wheeze and rhonchi. CARDIOVASCULAR: S1, S2. NECK: Supple. EKG sinus rhythm. ASSESSMENT: 1. Acute on chronic renal insufficiency. 2. Atypical chest pain, rule out myocardial infarction. 3. Multiple medical conditions include all from pneumonia and coronary artery disease. The patient will possibly be discharged home pending Cardiology consultation for chest pain. MMODL / IJN: [id number] /
[2017-06-05] MEDS ORDERED: LOPERAMIDE 2 MG CAP PO SCH (16:00)
[2017-06-05] MEDS ORDERED: metFORMIN 500 MG TAB PO SCH (17:30)
[2017-06-05] MEDS ORDERED: ROSUVASTATIN CALCIUM 40 MG PO SCH (21:00)
[2017-06-05] MEDS ORDERED: PRASUGREL 10 MG TAB PO SCH (21:00)
[2017-06-05] MEDS ORDERED: LINAGLIPTIN 5 MG TABLET PO SCH (21:00)
[2017-06-05] MEDS ORDERED: hydrALAZINE HCL 25 MG TAB PO SCH (21:00)
[2017-06-05] MEDS ORDERED: PANTOPRAZOLE 40 MG TABLET PO SCH (21:00)
[2017-06-05] MEDS ORDERED: ARIPiprazole 15 MG TAB PO SCH (21:00)
[2017-06-05] MEDS ORDERED: PRIMIDONE 50 MG TAB PO SCH (21:00)
[2017-06-06] MEDS ORDERED: ASPIRIN 81 MG PO SCH (09:00)
[2017-06-06] MEDS ORDERED: ASPIRIN 325 MG TAB PO SCH (09:00)
[2017-06-06] MEDS ORDERED: CHOLECALCIFEROL 1,000 UNIT TAB PO SCH (09:00)
[2017-06-07] MEDS ORDERED: NON-FORMULARY DRUG (Dulaglutide [Trulicity] 1.5 MG) SQ SCH (09:00)
== END 2017-06-05 14:21 | disposition home or self-care (01) ==
LOC: EC 01:56 → 3OBS 04:04
PROVIDERS: ADMIT Family Medicine; ATTEND Family Medicine
DX: R07.89 Other chest pain (principal); I25.10 Atherosclerotic heart disease of native coronary artery without angina pectoris; I25.5 Ischemic cardiomyopathy; K31.84 Gastroparesis; K21.9 Gastro-esophageal reflux disease without esophagitis; J45.909 Unspecified asthma, uncomplicated; I50.9 Heart failure, unspecified; I13.0 Hypertensive heart and chronic kidney disease with heart failure and stage 1 through stage 4 chronic kidney disease, or unspecified chronic kidney disease; I25.2 Old myocardial infarction; G47.33 Obstructive sleep apnea (adult) (pediatric); E78.5 Hyperlipidemia, unspecified; M19.90 Unspecified osteoarthritis, unspecified site; L40.9 Psoriasis, unspecified; E11.43 Type 2 diabetes mellitus with diabetic autonomic (poly)neuropathy; N18.9 Chronic kidney disease, unspecified; E11.22 Type 2 diabetes mellitus with diabetic chronic kidney disease; G89.29 Other chronic pain; G43.909 Migraine, unspecified, not intractable, without status migrainosus; F32.9 Major depressive disorder, single episode, unspecified; Z95.810 Presence of automatic (implantable) cardiac defibrillator; Z79.899 Other long term (current) drug therapy; Z79.84 Long term (current) use of oral hypoglycemic drugs; Z79.82 Long term (current) use of aspirin; Z79.02 Long term (current) use of antithrombotics/antiplatelets; Z88.8 Allergy status to other drugs, medicaments and biological substances; Z88.1 Allergy status to other antibiotic agents; Z88.3 Allergy status to other anti-infective agents; Z91.041 Radiographic dye allergy status; Z88.5 Allergy status to narcotic agent; Z88.0 Allergy status to penicillin; Z91.013 Allergy to seafood; Z86.73 Personal history of transient ischemic attack (TIA), and cerebral infarction without residual deficits; Z87.11 Personal history of peptic ulcer disease; Z86.14 Personal history of Methicillin resistant Staphylococcus aureus infection; Z95.5 Presence of coronary angioplasty implant and graft; F43.10 Post-traumatic stress disorder, unspecified; F41.9 Anxiety disorder, unspecified; Z82.49 Family history of ischemic heart disease and other diseases of the circulatory system; Z99.89 Dependence on other enabling machines and devices; Z91.5 Personal history of self-harm; E66.01 Morbid (severe) obesity due to excess calories; Z68.41 Body mass index [BMI] 40.0-44.9, adult
CPT/HCPCS: 96366; 96376; 96365; 96375; 99285; 36415; 93005; 80053; 82550; 82553; 83735; 84484; 85025; 85610; 85730; 83036; 71046; 71250; G0378; J1644 ×2; J2274

== ENCOUNTER → 2017-06-13 | Outpatient (CLI) | payer MEDICARE, OTHER ==
[2017-06-13 11:30] LABS: HCT 37.6 % (39.0-53.0); HGB 12.2 gm/dL (13.0-17.5); Hypochromasia Slight; MCH 26.5 pg (25.0-35.0); MCHC 32.4 g/dL (31.0-37.0); Mean Platelet Volume 6.6; Platelet Count 165 k/uL (150-450); RBC 4.58 m/uL (4.30-5.90); RDW 14.2 % (11.5-15.5); WBC 4.8 k/uL (3.8-10.6)
[2017-06-13 11:41] LABS: Anion Gap 12 mmol/L; Blood Urea Nitrogen 21 mg/dL (9-20); Calcium 9.6 mg/dL (8.4-10.2); Carbon Dioxide 25 mmol/L (22-30); Chloride 96 mmol/L (98-107); Glucose 359 mg/dL (74-99); Potassium 4.7 mmol/L (3.5-5.1); Sodium 133 mmol/L (137-145)
[2017-06-13 11:43] LABS: Prothrombin Time 10.2 sec (9.0-12.0)
== END | disposition home or self-care (01) ==
LOC: LABWHC1 10:37
PROVIDERS: ATTEND Nurse Practitioner Acute Care
DX: T82.847A Pain due to cardiac prosthetic devices, implants and grafts, initial encounter (principal)
CPT/HCPCS: 36415; 80048; 85027; 85610

== ENCOUNTER 2017-07-05 02:30 | Inpatient (IN) | payer MEDICARE, OTHER ==
[2017-07-05] MEDS ORDERED: NITROGLYCERIN OINT 1 INCH/GM PACKET TOPICAL STA (02:42)
--- NOTE | 2017-07-05 02:55 | ED ---
General Adult HPI - General Chief complaint: Chest Pain Stated complaint: Chest Pain Time Seen by Provider: 07/05/17 02:30 Source: patient, RN notes reviewed Mode of arrival: wheelchair Limitations: no limitations - History of Present Illness Initial comments: This is a 41-year-old male who presents emergency Department with a strong past medical history for coronary artery disease with stent placement. Patient comes in today because he started having chest pain about 10:30 tonight and it radiated to his arm he also stated he was short of breath and little bit sweaty. Patient states eventually vomited times one none of which seemed to help his pain. Patient states he took an aspirin that did not help his pain. Patient states his pain was reminiscent of the pain he had when he first had his heart attack and stent placement. Patient denies any recent fever chills or cough. Patient denies any abdominal pain patient denies any headache patient denies numbness weakness. Patient denies any leg pain or calf pain patient denies any leg edema. - Related Data Home Medications Medication Instructions Recorded Confirmed Nitroglycerin Sl Tabs [Nitrostat] 0.4 mg SUBLINGUAL Q5M PRN 10/13/13 06/05/17 metFORMIN HCL 1,000 mg PO BID 07/03/15 06/05/17 Omeprazole [PriLOSEC] 40 mg PO HS 08/13/15 06/05/17 Dulaglutide [Trulicity] 1.5 mg SQ OROZCO 03/10/16 06/05/17 Glimepiride 4 mg PO BID 03/10/16 06/05/17 Rosuvastatin Calcium 40 mg PO HS 05/05/16 06/05/17 Ranolazine [Ranexa] 1,000 mg PO BID 06/09/16 06/05/17 Primidone [Mysoline] 100 mg PO HS 06/30/16 06/05/17 Loperamide [Imodium] 2 mg PO TID 10/20/16 06/05/17 Cholecalciferol (Vitamin D3) 2,000 unit PO DAILY 11/07/16 06/05/17 [Vitamin D3] Linagliptin [Tradjenta] 5 mg PO HS 12/19/16 06/05/17 ARIPiprazole [ARIPiprazole Odt] 15 mg PO HS 02/14/17 06/05/17 Albuterol Inhaler [Ventolin Hfa 2 puff INHALATION RT-QID PRN 02/14/17 06/05/17 Inhaler] Gabapentin [Neurontin] 400 mg PO TID 02/24/17 06/05/17 Aspirin EC [Ecotrin Low Dose] 81 mg PO DAILY 04/11/17 06/05/17 Metoprolol Tartrate [Lopressor] 50 mg PO BID 05/14/17 06/05/17 Prasugrel [Effient] 10 mg PO HS 05/26/17 06/05/17 traMADol HCl [Ultram] 100 mg PO Q8H PRN 05/26/17 06/05/17 Previous Rx's Medication Instructions Recorded Sertraline HCl [Zoloft] 200 mg PO DAILY #28 01/27/17 hydrALAZINE HCL [Apresoline] 25 mg PO BID #60 tab 02/26/17 Isosorbide Mononitrate ER [Imdur] 60 mg PO DAILY #30 tab.er.24h 03/13/17 Allergies Allergy/AdvReac Type Severity Reaction Status Date / Time erythromycin base Allergy Severe Swelling Verified 07/05/17 02:35 [Erythromycin Base] codeine Allergy Unknown Swelling Verified 07/05/17 02:35 meclizine Allergy Unknown Unknown Verified 07/05/17 02:35 Penicillins Allergy Unknown Rash/Hives Verified 07/05/17 02:35 shellfish derived Allergy Unknown Anaphylaxis Verified 07/05/17 02:35 Fish Containing Products Allergy Anaphylaxis Verified 07/05/17 02:35 [Fish] Iodinated Contrast- Oral and Allergy Anaphylaxis Verified 07/05/17 02:35 IV Dye cephalexin monohydrate AdvReac Unknown Nausea & Verified 07/05/17 02:35 [From Keflex] Vomiting naproxen AdvReac Unknown Compromises Verified 07/05/17 02:35 Kidney Function atorvastatin calcium AdvReac Myalgia Verified 07/05/17 02:35 [From Lipitor] hydrocodone [From [place]] AdvReac Rapid Verified 07/05/17 02:35 Heart Rate Review of Systems ROS Statement: Those systems with pertinent positive or pertinent negative responses have been documented in the HPI. ROS Other: All systems not noted in ROS Statement are negative. Past Medical History Past Medical History: Asthma, Coronary Artery Disease (CAD), Chest Pain / Angina , Heart Failure, CVA/TIA, Diabetes Mellitus, GERD/Reflux, Hyperlipidemia, Hypertension, Myocardial Infarction ([place]), Osteoarthritis (OA), Pneumonia, Skin Disorder, Sleep Apnea/CPAP/BIPAP Additional Past Medical History / Comment(s): Coronary artery disease with multiple vessel disease, ischemic cardiomyopathy, diabetic neuropathy bilateral hands and feet, hypertensive cardiovascular disease, SHELIA with no device, chronic gastritis,degenerative disc disease, chronic back pain, depression with hx of suicide attempts, GASTROPARESIS, PSORIASES,NIDDM type II, UTI, migraines, TIA, PUD, hiatal hernia, L rotator cuff tear, bronchitis, pseudoaneurysm L groin post procedure. 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 Past Anesthesia/Blood Transfusion Reactions: No Reported Reaction Additional Past Anesthesia/Blood Transfusion Reaction / Comment(s): . Date of Last Stent Placement:: 12/23/16 Type of Cardiac Device: Biventricular Pacemaker, AICD Device Placement Date:: 09/19/15 Past Psychological History: Anxiety, Depression, PTSD Smoking Status: Never smoker Past Alcohol Use History: None Reported Past Drug Use History: None Reported - Past Family History Mother Family Medical History: Coronary Artery Disease (CAD), Myocardial Infarction ([place] ) Additional Family Medical History / Comment(s): 7 [place] and faulty heart valve. Pt does not know the age when mother had her MIs. Father History Unknown: Yes Additional Family Medical History / Comment(s): Does not know who father is Brother(s) Family Medical History: Congestive Heart Failure (CHF), Myocardial Infarction ( [place]) Additional Family Medical History / Comment(s): Parkinsons. Pt does not know at what age his brother had a [place] Patient has Family Medical History: No Reported History Additional Family Medical History / Comment(s): There is a strong family history for heart disease, hypertension, and diabetes. General Exam - General Exam Comments Initial Comments: GENERAL: Patient is well-developed and well-nourished. Patient is nontoxic and well- hydrated and is in mild distress. ENT: Neck is soft and supple. No significant lymphadenopathy is noted. Oropharynx is clear. Moist mucous membranes. Neck has full range of motion without eliciting any pain. EYES: The sclera were anicteric and conjunctiva were pink and moist. Extraocular movements were intact and pupils were equal round and reactive to light. Eyelids were unremarkable. PULMONARY: Unlabored respirations. Good breath sounds bilaterally. No audible rales rhonchi or wheezing was noted. CARDIOVASCULAR: There is a regular rate and rhythm without any murmurs gallops or rubs. ABDOMEN: Soft and nontender with normal bowel sounds. No palpable organomegaly was noted. There is no palpable pulsatile mass. SKIN: Skin is clear with no lesions or rashes and otherwise unremarkable. NEUROLOGIC: Patient is alert and oriented x3. Cranial nerves II through XII are grossly intact. Motor and sensory are also intact. Normal speech, volume and content. Symmetrical smile. MUSCULOSKELETAL: Normal extremities with adequate strength and full range of motion. LYMPHATICS: No significant lymphadenopathy is noted PSYCHIATRIC: Normal psychiatric evaluation. Normal interpersonal interactions appears functionally intact in deals appropriately with others. No signs of depression. No signs of anxiety. Limitations: no limitations Course Vital Signs 07/05/17 07/05/17 02:33 04:02 Temperature 97.2 F L Pulse Rate 98 94 Respiratory 20 18 Rate Blood Pressure 154/73 142/74 O2 Sat by Pulse 98 97 Oximetry Medical Decision Making - Medical Decision Making EKG shows paced rhythm at 93 bpm LA interval is 144 QRS is 120 QT interval 374 QTC is 465 per patient's EKG shows no ST segment elevation or depression. Patient's chest x-ray shows no acute abnormality. Because of the patient's main risk factors and his clinical picture today I started the patient on heparin because of his unstable angina. I spoke with Dr. Obed Clay he agreed to admit the patient admitted the patient wrote admitting orders. - Lab Data Result diagrams: 07/05/17 03:00 07/05/17 03:00 Lab Results 07/05/17 07/05/17 07/05/17 Range/Units 03:00 03:00 03:00 WBC 7.2 (3.8-10.6) k/uL RBC 4.98 (4.30-5.90) m/uL Hgb 13.1 (13.0-17.5) gm/dL Hct 41.3 (39.0-53.0) % MCV 82.9 (80.0-100.0) fL MCH 26.2 (25.0-35.0) pg MCHC 31.6 (31.0-37.0) g/dL RDW 14.4 (11.5-15.5) % Plt Count 267 (150-450) k/uL Neutrophils % 55 % Lymphocytes % 28 % Monocytes % 5 % Eosinophils % 9 % Basophils % 1 % Neutrophils # 4.0 (1.3-7.7) k/uL Lymphocytes # 2.0 (1.0-4.8) k/uL Monocytes # 0.4 (0-1.0) k/uL Eosinophils # 0.6 (0-0.7) k/uL Basophils # 0.1 (0-0.2) k/uL Hypochromasia Slight Sodium 133 L (137-145) mmol/L Potassium 4.1 (3.5-5.1) mmol/L Chloride 95 L (98-107) mmol/L Carbon Dioxide 27 (22-30) mmol/L Anion Gap 11 mmol/L BUN 22 H (9-20) mg/dL Creatinine 1.20 (0.66-1.25) mg/dL Est GFR (MDRD) Af Amer >60 (>60 ml/min/1.73 sqM) Est GFR (MDRD) Non-Af >60 (>60 ml/min/1.73 sqM) Glucose 472 H* (74-99) mg/dL Calcium 9.9 (8.4-10.2) mg/dL Magnesium 1.7 (1.6-2.3) mg/dL Total Bilirubin 0.4 (0.2-1.3) mg/dL AST 16 L (17-59) U/L ALT 31 (21-72) U/L Alkaline Phosphatase 138 H (38-126) U/L Total Creatine Kinase 79 (55-170) U/L CK-MB (CK-2) 1.5 (0.0-2.4) ng/mL CK-MB (CK-2) Rel Index 1.9 Troponin I 0.068 H* (0.000-0.034) ng/mL Total Protein 6.0 L (6.3-8.2) g/dL Albumin 3.6 (3.5-5.0) g/dL Critical Care Time Critical Care Time: Yes Total Critical Care Time: 35 Disposition Clinical Impression: Hyperglycemia, NSTEMI (non-ST elevated myocardial infarction) Disposition: ADMITTED IP TO THIS HOSP Referrals: Junie New MD [Primary Care Provider] - 1-2 days Time of Disposition: 03:35
[2017-07-05 03:30] LABS: ALT 31 U/L (21-72); AST 16 U/L (17-59); Albumin 3.6 g/dL (3.5-5.0); Alkaline Phosphatase 138 U/L (38-126); Anion Gap 11 mmol/L; Basophils # (A) 0.1 k/uL (0-0.2); Basophils % (A) 1 %; Blood Urea Nitrogen 22 mg/dL (9-20); Calcium 9.9 mg/dL (8.4-10.2); Carbon Dioxide 27 mmol/L (22-30); Chloride 95 mmol/L (98-107); Eosinophils # (A) 0.6 k/uL (0-0.7); Eosinophils % (A) 9 %; HCT 41.3 % (39.0-53.0); HGB 13.1 gm/dL (13.0-17.5); Hypochromasia Slight; Lymphocytes % (A) 28 %; MCH 26.2 pg (25.0-35.0); MCHC 31.6 g/dL (31.0-37.0); MCV 82.9 fL (80.0-100.0); Magnesium 1.7 mg/dL (1.6-2.3); Mean Platelet Volume 7.2; Monocytes # (A) 0.4 k/uL (0-1.0); Monocytes % (A) 5 %; Neutrophils % (A) 55 %; Platelet Count 267 k/uL (150-450); Potassium 4.1 mmol/L (3.5-5.1); RBC 4.98 m/uL (4.30-5.90); RDW 14.4 % (11.5-15.5); Sodium 133 mmol/L (137-145); Total Bilirubin 0.4 mg/dL (0.2-1.3); WBC 7.2 k/uL (3.8-10.6)
[2017-07-05] MEDS ORDERED: HEPARIN SODIUM,PORCINE 5,000 UNIT/ML 1 ML VIAL IV ONE (03:35)
[2017-07-05] MEDS ORDERED: NITROGLYCERIN SL TABS 0.4 MG TAB SUBLINGUAL PRN (03:39)
--- NOTE | 2017-07-05 03:42 | XR ---
INDICATION: Chest pain COMPARISON: CXR 06/05/17 FINDINGS: Frontal and lateral views of the chest are obtained. A left- sided AICD-pacemaker remains in place with intact right atrial, right ventricular, and coronary sinus leads. Cardiomediastinal silhouette is stable. Pulmonary vascularity is normal. There is no airspace consolidation, pleural effusion, or pneumothorax. Prominent bronchovascular markings in the right infrahilar region are similar to prior exam. There are no acute osseous findings. IMPRESSION: No radiographic evidence of acute cardiopulmonary disease.
[2017-07-05] MEDS ORDERED: MAG HYDROX/AL HYDROX/SIMETH 30 ML, HYOSCYAMINE ELIXIR 10 ML, CIMETIDINE HCL 300 MG, LID... PO STA ×4 (03:48)
[2017-07-05 03:55] LABS: Creatine Kinase MB 1.5 ng/mL (0.0-2.4)
[2017-07-05] MEDS: HEPARIN SOD,PORK IN 0.45% NACL 25,000 UNIT in 0.45% NACL 1 500ML.BAG IV SCH ×2 (03:57→22:21)
[2017-07-05 04:01] LABS: Glucose 472 mg/dL (74-99)
[2017-07-05 04:02] LABS: Troponin I 0.068 ng/mL (0.000-0.034)
[2017-07-05] MEDS ORDERED: INSULIN ASPART 100 UNIT/ML 1 ML 10 ML VIAL SQ ONE (04:02)
[2017-07-05 04:18] LABS: Glucose,Whole Blood 524 mg/dL (75-99)
[2017-07-05 04:19] LABS: Partial Thromboplastin Time 19.7 sec (22.0-30.0)
[2017-07-05 05:56] VITALS: BMI 40.4
[2017-07-05 07:54] LABS: Glucose,Whole Blood 340 mg/dL (75-99)
[2017-07-05] MEDS: INSULIN ASPART 100 UNIT/ML 1 ML 10 ML VIAL SQ SCH ×4 (08:30→22:06)
[2017-07-05] MEDS: NITROGLYCERIN OINT 1 INCH/GM PACKET TOPICAL SCH ×3 (08:31→22:08)
[2017-07-05 10:32] LABS: Creatine Kinase MB 1.3 ng/mL (0.0-2.4)
[2017-07-05 10:34] LABS: Troponin I 0.06 ng/mL (0.000-0.034)
[2017-07-05 11:47] LABS: Glucose,Whole Blood 266 mg/dL (75-99)
--- NOTE | 2017-07-05 11:49 | P.CRDCN ---
History of Present Illness Consult date: 07/05/17 History of present illness: This is a 41-year-old gentleman with history of coronary artery disease with several stent placements in the past with the last catheterization done in December 2016, ischemic cardiomyopathy and AICD placement who comes here to the hospital with complaints of a severe burning chest pain that came on at 10:30 last night. Patient ate a bowl of cereal without much relief. He did not have any nitroglycerin. He took aspirin without relief. Subsequently had 2 bouts of vomiting which also did not provide any relief. Patient finally came to the hospital. His EKGs did not reveal any acute changes and showed evidence of pacemaker rhythm. He was given a GI cocktail in the emergency room without much relief. He claims that Nitropaste helped him. When I walked into his room this morning patient was sound asleep, snoring. When he woke up later on, patient claimed that his pain was at a level of 6 on a scale of 1-10. His troponin values were mildly elevated but the tendon is not consistent with acute injury pattern. His maintaining underlying chronic ischemic heart disease and inconsistent with acute [place]. I will recommend continuation of medical therapy and symptomatic relief. I don't think patient is a candidate for any intervention. Past Medical History Past Medical History: Asthma, Coronary Artery Disease (CAD), Chest Pain / Angina , Heart Failure, CVA/TIA, Diabetes Mellitus, GERD/Reflux, Hyperlipidemia, Hypertension, Myocardial Infarction ([place]), Osteoarthritis (OA), Pneumonia, Skin Disorder, Sleep Apnea/CPAP/BIPAP Additional Past Medical History / Comment(s): Coronary artery disease with multiple vessel disease, ischemic cardiomyopathy, diabetic neuropathy bilateral hands and feet, hypertensive cardiovascular disease, SHELIA with no device, chronic gastritis,degenerative disc disease, chronic back pain, depression with hx of suicide attempts, GASTROPARESIS, PSORIASES,NIDDM type II, UTI, migraines, TIA, PUD, hiatal hernia, L rotator cuff tear, bronchitis, pseudoaneurysm L groin post procedure. 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 Past Anesthesia/Blood Transfusion Reactions: No Reported Reaction Additional Past Anesthesia/Blood Transfusion Reaction / Comment(s): . Date of Last Stent Placement:: 12/23/16 Type of Cardiac Device: Biventricular Pacemaker, AICD Device Placement Date:: 09/19/15 Past Psychological History: Anxiety, Depression, PTSD Additional Psychological History / Comment(s): Several suicide attempts with use of insulin. PTSD- IN 2000- HIS 3 MONTH OLD SON IN HIS ARMS(CHILD WAS BORN 2 MONTHS PREMATURE). Pt states his depression is stable at this time and does not have any suicidal thoughts or plans. He is independent. PT ON DISABILTY MULTIFACTORIAL PER PT. He drives. Smoking Status: Never smoker Past Alcohol Use History: None Reported Additional Past Alcohol Use History / Comment(s): Past alcohol abuse- pt states he drinks rarely now for the past 6 yrs.. Past Drug Use History: None Reported Additional Drug Use History / Comment(s): Pt has smoked marijuana in the past- last smoked in 1999 - Past Family History Mother Family Medical History: Coronary Artery Disease (CAD), Myocardial Infarction ([place] ) Additional Family Medical History / Comment(s): 7 [place] and faulty heart valve. Pt does not know the age when mother had her MIs. Father History Unknown: Yes Additional Family Medical History / Comment(s): Does not know who father is Brother(s) Family Medical History: Congestive Heart Failure (CHF), Myocardial Infarction ( [place]) Additional Family Medical History / Comment(s): Parkinsons. Pt does not know at what age his brother had a [place] Patient has Family Medical History: No Reported History Additional Family Medical History / Comment(s): There is a strong family history for heart disease, hypertension, and diabetes. Medications and Allergies Home Medications Medication Instructions Recorded Confirmed Type Nitroglycerin Sl Tabs [Nitrostat] 0.4 mg SUBLINGUAL Q5M PRN 10/13/13 07/05/17 History metFORMIN HCL 1,000 mg PO AC-BID 07/03/15 07/05/17 History Omeprazole [PriLOSEC] 40 mg PO HS 08/13/15 07/05/17 History Dulaglutide [Trulicity] 1.5 mg SQ OROZCO 03/10/16 07/05/17 History Glimepiride 4 mg PO AC-BID 03/10/16 07/05/17 History Rosuvastatin Calcium 40 mg PO HS 05/05/16 07/05/17 History Ranolazine [Ranexa] 1,000 mg PO BID 06/09/16 07/05/17 History Primidone [Mysoline] 100 mg PO BID 06/30/16 07/05/17 History Cholecalciferol (Vitamin D3) 2,000 unit PO DAILY 11/07/16 07/05/17 History [Vitamin D3] Linagliptin [Tradjenta] 5 mg PO HS 12/19/16 07/05/17 History Sertraline HCl [Zoloft] 200 mg PO DAILY #28 01/27/17 07/05/17 Rx Albuterol Inhaler [Ventolin Hfa 2 puff INHALATION RT-Q4H PRN 02/14/17 07/05/17 History Inhaler] Gabapentin [Neurontin] 400 mg PO TID 02/24/17 07/05/17 History Metoprolol Tartrate [Lopressor] 75 mg PO BID 05/14/17 07/05/17 History Prasugrel [Effient] 10 mg PO HS 05/26/17 07/05/17 History Furosemide [Lasix] 40 mg PO DAILY 07/05/17 07/05/17 History Isosorbide Mononitrate ER [Imdur] 30 mg PO DAILY 07/05/17 07/05/17 History Lisinopril [Zestril] 2.5 mg PO DAILY 07/05/17 07/05/17 History Ranitidine HCl [Zantac] 300 mg PO QAM 07/05/17 07/05/17 History Allergies Allergy/AdvReac Type Severity Reaction Status Date / Time erythromycin base Allergy Severe Swelling Verified 07/05/17 02:35 [Erythromycin Base] codeine Allergy Unknown Swelling Verified 07/05/17 02:35 meclizine Allergy Unknown Unknown Verified 07/05/17 02:35 Penicillins Allergy Unknown Rash/Hives Verified 07/05/17 02:35 shellfish derived Allergy Unknown Anaphylaxis Verified 02/11/18 02:35 Fish Containing Products Allergy Anaphylaxis Verified 07/05/17 02:35 [Fish] Iodinated Contrast- Oral and Allergy Anaphylaxis Verified 07/05/17 02:35 IV Dye cephalexin monohydrate AdvReac Unknown Nausea & Verified 07/05/17 02:35 [From Keflex] Vomiting naproxen AdvReac Unknown Compromises Verified 07/05/17 02:35 Kidney Function atorvastatin calcium AdvReac Myalgia Verified 07/05/17 02:35 [From Lipitor] hydrocodone [From [place]] AdvReac Rapid Verified 07/05/17 02:35 Heart Rate Physical Exam Vitals: Vital Signs Temp Pulse Pulse Pulse Resp BP BP 07/05/17 08:00 96.5 F L 87 153/79 07/05/17 04:52 89 18 07/05/17 04:14 97 18 142/79 07/05/17 04:02 94 18 142/74 07/05/17 03:39 07/05/17 02:33 97.2 F L 98 20 154/73 Pulse Ox 07/05/17 08:00 97 07/05/17 04:52 98 07/05/17 04:14 94 L 07/05/17 04:02 97 07/05/17 03:39 94 L 07/05/17 02:33 98 Intake and Output 07/04/17 07/05/17 07/05/17 22:59 06:59 14:59 Intake Total 20 Balance 20 Intake: Intake, IV Titration 20 Amount Heparin Sod,Pork in 0.45% 20 NaCl 25,000 unit In 0.45 % NaCl 1 500ml.bag @ 8.9 UNITS/KG/HR 20.18 mls/hr IV .Q24H [facility] Rx#: [id number] Other: Weight 113.6 kg GENERAL EXAM: Patient is alert and oriented and doesn't appear to be in any acute distress HEENT: Normocephalic. Normal reaction of pupils, equal size, normal range of extraocular motion. No erythema or exudates in the throat. NECK: No masses, no nuchal rigidity. CHEST: No chest wall deformity. LUNGS: Equal air entry with no crackles or wheeze. HEART: S1 and S2 normal with no audible mumurs or gallops. Regular rhythm, femorals equal on both sides.. ABDOMEN: No hepatosplenomegaly, normal bowel sounds, no guarding or rigidity. SKIN: No rashes CENTRAL NERVOUS SYSTEM: No focal deficits. EXTREMITIES: No cyanosis, clubbing or edema. Results 07/05/17 03:00 07/05/17 03:00 Cardiac Enzymes 07/05/17 07/05/17 07/05/17 Range/Units 03:00 03:00 09:25 AST 16 L (17-59) U/L CK-MB (CK-2) 1.5 1.3 (0.0-2.4) ng/mL Troponin I 0.068 H* 0.060 H* (0.000-0.034) ng/mL Coagulation 07/05/17 07/05/17 Range/Units 03:00 09:25 PT 10.0 (9.0-12.0) sec APTT 19.7 L 27.8 (22.0-30.0) sec CBC 07/05/17 Range/Units 03:00 WBC 7.2 (3.8-10.6) k/uL RBC 4.98 (4.30-5.90) m/uL Hgb 13.1 (13.0-17.5) gm/dL Hct 41.3 (39.0-53.0) % Plt Count 267 (150-450) k/uL Comprehensive Metabolic Panel 07/05/17 Range/Units 03:00 Sodium 133 L (137-145) mmol/L Potassium 4.1 (3.5-5.1) mmol/L Chloride 95 L (98-107) mmol/L Carbon Dioxide 27 (22-30) mmol/L BUN 22 H (9-20) mg/dL Creatinine 1.20 (0.66-1.25) mg/dL Glucose 472 H* (74-99) mg/dL Calcium 9.9 (8.4-10.2) mg/dL AST 16 L (17-59) U/L ALT 31 (21-72) U/L Alkaline Phosphatase 138 H (38-126) U/L Total Protein 6.0 L (6.3-8.2) g/dL Albumin 3.6 (3.5-5.0) g/dL Current Medications Generic Name Dose Route Start Last Admin Trade Name Freq PRN Reason Stop Dose Admin Aspirin 325 mg 07/06/17 09:00 Aspirin PO DAILY JAKE Heparin Sodium/Sodium Chloride 500 mls @ 20.18 mls/hr 07/05/17 03:45 03:57 25,000 unit/ Sodium Chloride IV 12 units/kg/hr .Q24H JAKE 27.21 mls/hr Protocol Administration 8.9 UNITS/KG/HR Insulin Aspart 0 unit 07/05/17 07:30 07/05/17 08:30 Novolog SQ 9 unit ACHS JAKE Administration Protocol Nitroglycerin 1 inch 07/05/17 07:00 07/05/17 08:31 Nitro-Bid Oint TOPICAL 1 inch Q6HR JAKE Administration Nitroglycerin 0.4 mg 07/05/17 03:39 Nitrostat SUBLINGUAL Q5M PRN Chest Pain Intake and Output 07/04/17 07/05/17 07/05/17 22:59 06:59 14:59 Intake Total 20 Balance 20 Intake: Intake, IV Titration 20 Amount Heparin Sod,Pork in 0.45% 20 NaCl 25,000 unit In 0.45 % NaCl 1 500ml.bag @ 8.9 UNITS/KG/HR 20.18 mls/hr IV .Q24H [facility] Rx#: [id number] Other: Weight 113.6 kg 07/05/17 03:00 07/05/17 03:00 EKG Interpretations (text) Pacemaker rhythm Assessment and Plan (1) AICD (automatic cardioverter/defibrillator) present Current Visit: No Status: Acute Code(s): Z95.810 - PRESENCE OF AUTOMATIC ( IMPLANTABLE) CARDIAC DEFIBRILLATOR SNOMED Code(s): 182962380 (2) CAD (coronary artery disease) Current Visit: No Status: Acute Code(s): I25.10 - ATHSCL HEART DISEASE OF [place] CORONARY ARTERY W/O ANG PCTRS SNOMED Code(s): 61596147 (3) Cardiomyopathy Current Visit: No Status: Acute Code(s): I42.9 - CARDIOMYOPATHY, UNSPECIFIED SNOMED Code(s): 66449998 (4) Chest pain in adult Current Visit: No Status: Acute Code(s): R07.9 - CHEST PAIN, UNSPECIFIED SNOMED Code(s): 26151437 (5) Diabetes Current Visit: No Status: Acute Code(s): E11.9 - TYPE 2 DIABETES MELLITUS WITHOUT COMPLICATIONS SNOMED Code(s): 49642537 Plan: Continue maximal medical therapy. Symptomatic medical treatment. Not a candidate for any intervention. Thank you
[2017-07-05] MEDS ORDERED: ALBUTEROL NEBULIZED 2.5 MG/3 ML INHALATION PRN (14:31)
[2017-07-05] MEDS ORDERED: TEMAZEPAM 15 MG CAP PO PRN (14:33)
[2017-07-05] MEDS ORDERED: ALPRAZolam 0.25 MG TAB PO PRN (14:33)
[2017-07-05] MEDS ORDERED: NON-FORMULARY DRUG (Dulaglutide [Trulicity] 1.5 MG) SQ SCH (14:45)
--- NOTE | 2017-07-05 15:06 | HP ---
HISTORY AND PHYSICAL DATE OF SERVICE: 07/05/2017 CHIEF COMPLAINT: Chest pain. HISTORY OF PRESENT ILLNESS: This 41-year-old gentleman with a past medical history of multiple medical problems including asthma, history of CHF, CVA, TIA, diabetes mellitus, GERD, hypertension, hypertension, DJD, history of CAD with multivessel disease, ischemic cardiomyopathy, diabetic neuropathy being followed Dr. Junie New in the outpatient setting is complaining of chest pain. The patient came to [facility] Emergency Room early this morning with complaints of chest pain which is felt in the anterior part of the chest radiating to the left arm. The patient had shortness of breath and was sweaty and the patient also had 1 episode of vomiting also. The patient took aspirin, which pain is not helped and because of the similar to the pain with previous heart attack, the patient came to [facility] and was admitted for further evaluation and treatment. The patient was found to have a creatinine of 1.2 and blood sugars uncontrolled 472. Troponins indeterminate at 0.068. Patient admitted for further evaluation and treatment. There is no history of fever, rigors. No history of headache, loss of consciousness or seizures. PAST MEDICAL HISTORY: History of asthma, CAD, history of CVA, TIA, CHF, diabetes mellitus, GERD, hypertension, hyperlipidemia, history of mitral infarction. MEDICATIONS: Prior to admission, home medications are: 1. Trulicity 1.5 mg subcu Thursday. 2. Zantac 300 mg q.a.m. 3. Zestril 2.5 mg p.o. daily. 4. Lasix 40 mg p.o. daily. 5. Imdur 30 mg p.o. daily. 6. Glimepiride 4 mg a.c. b.i.d. 7. Neurontin 400 mg p.o. t.i.d. 8. Vitamin D3 2000 daily. 9. Ventolin HFA 2 puffs q.4h p.r.n. 10.Ranexa 1000 mg p.o. b.i.d. 11.Mysoline 100 mg p.o. b.i.d. 12.Effient 10 mg p.o. q.h.s. 13.Prilosec 40 mg q.h.s. 14.Nitrostat 0.4 subcu q5 p.r.n. 15.Lopressor 25 mg p.o. b.i.d. 16.Tradjenta 5 mg p.o. q.h.s. 17.Metformin 1000 mg a.c. b.i.d. 18.Zoloft 100 mg. 19.Crestor 40 mg q.h.s. ALLERGIES: ERYTHROMYCIN, CODEINE, MECLIZINE, PENICILLIN, SHELLFISH, IODINATED CONTRAST, CEPHALEXIN, NAPROSYN, LIPITOR AND NORCO. FAMILY HISTORY: History of coronary artery disease in the family. SOCIAL HISTORY: Occasional alcohol intake. No history of smoking. REVIEW OF SYSTEMS: ENT: No diminished vision or hearing. CARDIOVASCULAR: As mentioned. RESPIRATORY: As mentioned earlier. GI: No nausea. : As mentioned earlier. NERVOUS SYSTEM: No numbness, weakness. ALLERGY/IMMUNOLOGY: As mentioned. MUSCULOSKELETAL: As mentioned earlier. HEMATOLOGY: No history of anemia. ENDOCRINE: As mentioned. CONSTITUTIONAL: As mentioned earlier. DERMATOLOGY: Negative. RHEUMATOLOGY: Negative. PSYCHIATRY: Negative. PHYSICAL EXAM: Patient is alert, oriented x3. Pulse 87, blood pressure 157/73, respiration 18, temperature 98.4, pulse ox 98% on 2 L. HEENT: Conjunctivae normal. Oral mucosa moist. NECK: No jugular venous distention. No carotid bruit. No lymph node enlargement. CARDIOVASCULAR: S1, S2. RESPIRATORY: Breath sounds diminished in the bases. A few scattered rhonchi. Expiratory wheezing and crackles. ABDOMEN: Soft, nontender. Obese. No mass palpable. LEGS: No edema, no swelling. NERVOUS SYSTEM: Higher functions as mentioned earlier. Moves all 4 limbs. No focal motor deficits. LYMPHATICS: No lymphadenopathy in the neck, axillae, groin. SKIN: No ulcer, rash, bleeding. LABS: CBC within normal limits. Sodium 133, potassium 4.1, glucose 472. Troponin 0.068. ASSESSMENT: 1. Chest pain possible unstable angina. 2. Indeterminate troponin 0.068. 3. Diabetes mellitus type 2 uncontrolled. 4. Hyponatremia. 5. History of chronic kidney disease stage 2. 6. History of cardiomyopathy, ischemic. 7. Diabetes mellitus type 2. 8. History of coronary artery disease. 9. History of congestive heart failure. 10.Hypertension. 11.Hyperlipidemia. 12.History of diabetic polyneuropathy. 13.History of diabetic gastroparesis. 14.History of coronary artery disease, stent. RECOMMENDATIONS AND DISCUSSION: This 41-year-old gentleman who presented with multiple complex medical issues, will monitor the patient closely. Continue the current management and symptomatic treatment. I recommend IV heparin has been initiated. I recommend cardiology consultation. Otherwise I recommend to resume the home medications. Guarded prognosis because of multiple complex medical issues. Further recommendations to follow. Copy dictation forwarded to Dr. Junie New, who is the primary physician. See orders for details. MMODL / IJN: [id number] /
[2017-07-05 15:27] LABS: Creatine Kinase MB 1.2 ng/mL (0.0-2.4)
[2017-07-05 15:31] LABS: Troponin I 0.053 ng/mL (0.000-0.034)
[2017-07-05] MEDS: FUROSEMIDE 40 MG TAB PO SCH (17:09)
[2017-07-05] MEDS: FAMOTIDINE 20 MG TAB PO SCH (17:10)
[2017-07-05] MEDS: GABAPENTIN 400 MG CAP PO SCH ×2 (17:10→22:01)
[2017-07-05] MEDS: LISINOPRIL 2.5 MG TAB PO SCH (17:10)
[2017-07-05] MEDS: SERTRALINE 100 MG TAB PO SCH (17:10)
[2017-07-05] MEDS: metFORMIN 500 MG TAB PO SCH (17:11)
[2017-07-05] MEDS: GLIMEPIRIDE 4 MG TAB PO SCH (17:11)
[2017-07-05 17:14] LABS: Glucose,Whole Blood 251 mg/dL (75-99)
[2017-07-05 17:58] LABS: Hemoglobin A1C 10.8 % (4.0-6.0)
[2017-07-05] MEDS ORDERED: PANTOPRAZOLE 40 MG TABLET PO SCH (21:00)
[2017-07-05 21:08] LABS: Glucose,Whole Blood 278 mg/dL (75-99)
[2017-07-05] MEDS: METOPROLOL TARTRATE 25 MG TAB PO SCH (22:01)
[2017-07-05] MEDS: LINAGLIPTIN 5 MG TABLET PO SCH (22:04)
[2017-07-05] MEDS: PRIMIDONE 50 MG TAB PO SCH (22:05)
[2017-07-05] MEDS: RANOLAZINE 500 MG TAB.ER.12H PO SCH (22:05)
[2017-07-05] MEDS: ROSUVASTATIN CALCIUM 40 MG PO SCH (22:14)
[2017-07-05] MEDS: PRASUGREL 10 MG TAB PO SCH (22:16)
[2017-07-06 05:02] LABS: Basophils # (A) 0.1 k/uL (0-0.2); Basophils % (A) 1 %; Eosinophils # (A) 0.7 k/uL (0-0.7); Eosinophils % (A) 9 %; HGB 11.9 gm/dL (13.0-17.5); Hypochromasia Slight; Lymphocytes # (A) 2.2 k/uL (1.0-4.8); Lymphocytes % (A) 28 %; MCH 25.7 pg (25.0-35.0); MCHC 31.3 g/dL (31.0-37.0); MCV 82.2 fL (80.0-100.0); Mean Platelet Volume 7.2; Monocytes # (A) 0.4 k/uL (0-1.0); Monocytes % (A) 5 %; Neutrophils # (A) 4.4 k/uL (1.3-7.7); Neutrophils % (A) 55 %; Platelet Count 255 k/uL (150-450); RBC 4.63 m/uL (4.30-5.90); RDW 14.8 % (11.5-15.5)
[2017-07-06] MEDS: NITROGLYCERIN OINT 1 INCH/GM PACKET TOPICAL SCH ×5 (05:03→22:35)
[2017-07-06 05:43] LABS: Anion Gap 11 mmol/L; Blood Urea Nitrogen 20 mg/dL (9-20); Carbon Dioxide 27 mmol/L (22-30); Chloride 100 mmol/L (98-107); Cholesterol 106 mg/dL (<200); Glucose 151 mg/dL (74-99); HDL Cholesterol 39 mg/dL (40-60); LDL Cholesterol,Calculated 37 mg/dL (0-99); Potassium 4.1 mmol/L (3.5-5.1); Sodium 138 mmol/L (137-145); Triglycerides 150 mg/dL (<150)
[2017-07-06 06:04] LABS: Glucose,Whole Blood 186 mg/dL (75-99)
[2017-07-06] MEDS: GLIMEPIRIDE 4 MG TAB PO SCH ×2 (09:54→16:26)
[2017-07-06] MEDS: INSULIN ASPART 100 UNIT/ML 1 ML 10 ML VIAL SQ SCH ×4 (09:54→21:10)
[2017-07-06] MEDS: metFORMIN 500 MG TAB PO SCH ×2 (09:55→16:26)
[2017-07-06] MEDS: RANOLAZINE 500 MG TAB.ER.12H PO SCH ×2 (09:58→20:33)
[2017-07-06] MEDS: LISINOPRIL 2.5 MG TAB PO SCH (09:58)
[2017-07-06] MEDS: GABAPENTIN 400 MG CAP PO SCH ×3 (09:58→20:33)
[2017-07-06] MEDS: ASPIRIN 325 MG TAB PO SCH (09:59)
[2017-07-06] MEDS: FAMOTIDINE 20 MG TAB PO SCH (09:59)
[2017-07-06] MEDS: FUROSEMIDE 40 MG TAB PO SCH (09:59)
[2017-07-06] MEDS: METOPROLOL TARTRATE 25 MG TAB PO SCH ×2 (09:59→20:32)
[2017-07-06] MEDS: SERTRALINE 100 MG TAB PO SCH (09:59)
[2017-07-06] MEDS: CHOLECALCIFEROL 1,000 UNIT TAB PO SCH (09:59)
[2017-07-06] MEDS: PRIMIDONE 50 MG TAB PO SCH ×2 (09:59→20:33)
[2017-07-06 11:52] LABS: Glucose,Whole Blood 291 mg/dL (75-99)
--- NOTE | 2017-07-06 16:09 | P.PN ---
Subjective Progress Note Date: 07/06/17 This is a 41-year-old gentleman with history of coronary artery disease with several stent placements in the past with the last catheterization done in December 2016, ischemic cardiomyopathy and AICD placement who comes here to the hospital with complaints of a severe burning chest pain that came on at 10:30 last night. Patient ate a bowl of cereal without much relief. He did not have any nitroglycerin. He took aspirin without relief. Subsequently had 2 bouts of vomiting which also did not provide any relief. Patient finally came to the hospital. His EKGs did not reveal any acute changes and showed evidence of pacemaker rhythm. He was given a GI cocktail in the emergency room without much relief. He claims that Nitropaste helped him. When I walked into his room this morning patient was sound asleep, snoring. When he woke up later on, patient claimed that his pain was at a level of 6 on a scale of 1-10. His troponin values were mildly elevated but the tendon is not consistent with acute injury pattern. His maintaining underlying chronic ischemic heart disease and inconsistent with acute MN. I will recommend continuation of medical therapy and symptomatic relief. I don't think patient is a candidate for any intervention. 07/06/2017 was seen and examined this morning, was complaining of heartburn sensation , persistent, GI service was consulted. Objective - Vital Signs Vital signs: Vital Signs Temp 97.6 F 07/06/17 11:45 Pulse 71 07/06/17 11:47 Resp 16 07/06/17 11:47 BP 106/53 07/06/17 11:45 Pulse Ox 96 07/06/17 11:45 Intake & Output 07/05/17 07/06/17 07/06/17 18:59 06:59 18:59 Intake Total 584.46 565.54 340 Output Total 600 Balance -15.54 565.54 340 Weight 113.5 kg 113.5 kg Intake: IV 300 100 Invasive Line 1 300 100 Intake, IV Titration 254.46 265.54 Amount Heparin Sod,Pork in 0.45% 254.46 265.54 NaCl 25,000 unit In 0.45 % NaCl 1 500ml.bag @ 8.9 UNITS/KG/HR 20.18 mls/hr IV .Q24H [facility] Rx#: [id number] Oral 330 240 Output: Urine 600 Other: Voiding Method Toilet Toilet # Voids 2 # Bowel Movements 2 - Exam GENERAL EXAM: Patient is alert and oriented and doesn't appear to be in any acute distress HEENT: Normocephalic. Normal reaction of pupils, equal size, normal range of extraocular motion. No erythema or exudates in the throat. NECK: No masses, no nuchal rigidity. CHEST: No chest wall deformity. LUNGS: Equal air entry with no crackles or wheeze. HEART: S1 and S2 normal with no audible mumurs or gallops. Regular rhythm, femorals equal on both sides.. ABDOMEN: No hepatosplenomegaly, normal bowel sounds, no guarding or rigidity. SKIN: No rashes CENTRAL NERVOUS SYSTEM: No focal deficits. EXTREMITIES: No cyanosis, clubbing or edema. - Labs CBC & Chem 7: 07/06/17 04:31 07/06/17 04:31 Labs: Abnormal Lab Results - Last 24 Hours (Table) 07/05/17 07/05/17 07/05/17 Range/Units 09:25 16:48 21:06 Hgb (13.0-17.5) gm/dL Hct (39.0-53.0) % APTT (22.0-30.0) sec Creatinine (0.66-1.25) mg/dL Glucose (74-99) mg/dL POC Glucose (mg/dL) 251 H 278 H (75-99) mg/dL Hemoglobin A1c 10.8 H (4.0-6.0) % Triglycerides (<150) mg/dL HDL Cholesterol (40-60) mg/dL 07/06/17 07/06/17 07/06/17 Range/Units 04:31 04:31 04:31 Hgb 11.9 L (13.0-17.5) gm/dL Hct 38.0 L (39.0-53.0) % APTT 31.6 H (22.0-30.0) sec Creatinine 1.30 H (0.66-1.25) mg/dL Glucose 151 H (74-99) mg/dL POC Glucose (mg/dL) (75-99) mg/dL Hemoglobin A1c (4.0-6.0) % Triglycerides 150 H (<150) mg/dL HDL Cholesterol 39 L (40-60) mg/dL 07/06/17 07/06/17 Range/Units 05:59 11:39 Hgb (13.0-17.5) gm/dL Hct (39.0-53.0) % APTT (22.0-30.0) sec Creatinine (0.66-1.25) mg/dL Glucose (74-99) mg/dL POC Glucose (mg/dL) 186 H 291 H (75-99) mg/dL Hemoglobin A1c (4.0-6.0) % Triglycerides (<150) mg/dL HDL Cholesterol (40-60) mg/dL Assessment and Plan Plan: Assessment and plan #1atypical chest discomfort,troponins not indicative of acute coronary syndrome. Appears GI in nature, they have been consult for today. #2 known history of coronary artery disease #3 ischemic cardio myopathy with prior AICD #4 asthma # 5 diabetes #6 hypertension #7 hyperlipidemia #8 prior TIA Plan #From cardiology's perspective, we will recommend a GI consultation for patient' s heartburn type discomfort. Continue other current medications. DNP note has been reviewed, I agree with a documented findings and plan of care. Patient was seen and examined.
[2017-07-06] MEDS: HEPARIN SOD,PORK IN 0.45% NACL 25,000 UNIT in 0.45% NACL 1 500ML.BAG IV SCH (16:22)
[2017-07-06 17:26] LABS: Glucose,Whole Blood 300 mg/dL (75-99)
[2017-07-06] MEDS ORDERED: INSULIN ASPART 100 UNIT/ML 1 ML 10 ML VIAL SQ ONE (19:19)
--- NOTE | 2017-07-06 19:28 | P.PN ---
Subjective Progress Note Date: 07/06/17 Progress note being dictated for Dr. Clay. Interval history: This is a 41-year-old gentleman admitted with chest pain and multiple other medical issues. Evaluated by cardiology with recommendations noted. Patient complains of burning midsternal chest pain that radiates down across bilateral chest under his breasts, continuously with no relation to diet intake, exertion. Ambulating with in room, denies shortness of breath with exertion. Worsening renal function.. Hemoglobin A1c 10.8, blood sugars uncontrolled. GI consulted, EGD scheduled for a.m. Review of systems: CONSTITUTIONAL: No fever, no malaise, no fatigue. HEENT: No recent visual problems or hearing problems. Denied any sore throat. CARDIOVASCULAR: As mentioned above PULMONARY: Active Medications Albuterol Sulfate (Ventolin Nebulized) 2.5 mg INHALATION RT-Q4H PRN PRN Reason: Shortness Of Breath Alprazolam (Xanax) 0.25 mg PO TID PRN PRN Reason: Anxiety Aspirin (Aspirin) 325 mg PO DAILY [facility] Last Admin: 07/06/17 09:59 Dose: 325 mg Cholecalciferol (Vitamin D3) 2,000 unit PO DAILY [facility] Last Admin: 07/06/17 09:59 Dose: 2,000 unit Famotidine (Pepcid) 40 mg PO QAM [facility] Last Admin: 07/06/17 09:59 Dose: 40 mg Furosemide (Lasix) 40 mg PO DAILY [facility] Last Admin: 07/06/17 09:59 Dose: 40 mg Gabapentin (Neurontin) 400 mg PO TID [facility] Last Admin: 07/06/17 16:26 Dose: 400 mg Glimepiride (Amaryl) 4 mg PO AC-BID [facility] Last Admin: 07/06/17 16:26 Dose: 4 mg Heparin Sodium/Sodium Chloride (25,000 unit/ Sodium Chloride) 500 mls @ 20.18 mls/hr IV .Q24H [facility]; 8.9 UNITS/KG/HR PRN Reason: Protocol Last Admin: 07/06/17 16:22 Dose: 18 units/kg/hr, 40.82 mls/hr Insulin Aspart (Novolog) 0 unit SQ ACHS [facility] PRN Reason: Protocol Last Admin: 07/06/17 17:52 Dose: 7 unit Linagliptin (Tradjenta) 5 mg PO HS [facility] Last Admin: 07/05/17 22:04 Dose: 5 mg Lisinopril (Zestril) 2.5 mg PO DAILY [facility] Last Admin: 07/06/17 09:58 Dose: 2.5 mg Metformin HCl (Glucophage) 1,000 mg PO AC-BID [facility] Last Admin: 07/06/17 16:26 Dose: 1,000 mg Metoprolol Tartrate (Lopressor) 75 mg PO BID [facility] Last Admin: 07/06/17 09:59 Dose: 75 mg Nitroglycerin (Nitro-Bid Oint) 1 inch TOPICAL Q6HR [facility] Last Admin: 07/06/17 17:51 Dose: Not Given Nitroglycerin (Nitrostat) 0.4 mg SUBLINGUAL Q5M PRN PRN Reason: Chest Pain Non-Formulary Medication (Dulaglutide [Trulicity]) 1.5 mg SQ OROZCO [facility] Last Admin: 07/05/17 17:09 Dose: Not Given Non-Formulary Medication (Rosuvastatin Calcium [Rosuvastatin Calcium]) 40 mg PO HS [facility] Last Admin: 07/05/17 22:14 Dose: Not Given Pantoprazole Sodium (Protonix) 40 mg PO HS [facility] Last Admin: 07/05/17 22:02 Dose: 40 mg Prasugrel (Effient) 10 mg PO HS [facility] Last Admin: 07/05/17 22:16 Dose: 10 mg Primidone (Mysoline) 100 mg PO BID [facility] Last Admin: 07/06/17 09:59 Dose: 100 mg Ranolazine (Ranexa) 1,000 mg PO BID [facility] Last Admin: 07/06/17 09:58 Dose: 1,000 mg Sertraline HCl (Zoloft) 200 mg PO DAILY [facility] Last Admin: 07/06/17 09:59 Dose: 200 mg Temazepam (Restoril) 15 mg PO HS PRN PRN Reason: Insomnia No shortness of breath, no cough, no hemoptysis. GASTROINTESTINAL: No diarrhea, no nausea, no vomiting, no abdominal pain. Normoactive bowel sounds. NEUROLOGICAL: No headaches, no weakness, no numbness. HEMATOLOGICAL: Denies any bleeding or petechiae. GENITOURINARY: Denies any burning micturition, frequency, or urgency. MUSCULOSKELETAL/RHEUMATOLOGICAL: Denies any joint pain, swelling, or any muscle pain. ENDOCRINE: Denies any polyuria or polydipsia. PSYCHIATRIC: No anxiety, no depression The rest of the 14 point review of systems is negative Objective - Vital Signs Vital signs: Vital Signs Temp 97.6 F 07/06/17 11:45 Pulse 74 07/06/17 16:00 Resp 16 07/06/17 16:00 BP 104/56 07/06/17 16:00 Pulse Ox 96 07/06/17 16:00 Intake & Output 07/06/17 07/06/17 07/07/17 06:59 18:59 06:59 Intake Total 565.54 1080 Balance 565.54 1080 Weight 113.5 kg 113.5 kg Intake: IV 300 100 Invasive Line 1 300 100 Intake, IV Titration 265.54 500 Amount Heparin Sod,Pork in 0.45% 265.54 500 NaCl 25,000 unit In 0.45 % NaCl 1 500ml.bag @ 8.9 UNITS/KG/HR 20.18 mls/hr IV .Q24H [facility] Rx#: [id number] Oral 480 Other: Voiding Method Toilet Toilet # Voids 2 # Bowel Movements 2 - Exam PHYSICAL EXAM: VITAL SIGNS: As above GENERAL: Sitting up at side of bed, no acute distress HEENT: Conjunctivae normal. eyes normal. NECK: No JVD. No thyroid enlargement. No LNs CARDIOVASCULAR: S1, S2 muffled. No murmur RESPIRATION: Breath sounds diminished in the bases. No rhonchi or crackles. No bronchial breathing. ABDOMEN: Soft, nontender . No guarding. no masses palpable. Bowel sounds heard. LEGS: No edema. no swelling PSYCHIATRY: Alert and oriented -3, mood and affect normal. NERVOUS SYSTEM: Cranial N 2-12 grossly normal. Moves all 4 limbs. Diffuse weakness No focal deficits. Skin: no ulcer no rash Joints: No active swelling. No inflammation. Lymphatic system. No LN neck axilla or groin. - Labs CBC & Chem 7: 07/06/17 04:31 07/06/17 04:31 Labs: Abnormal Lab Results - Last 24 Hours (Table) 07/05/17 07/06/17 07/06/17 Range/Units 21:06 04:31 04:31 Hgb 11.9 L (13.0-17.5) gm/dL Hct 38.0 L (39.0-53.0) % APTT (22.0-30.0) sec Creatinine 1.30 H (0.66-1.25) mg/dL Glucose 151 H (74-99) mg/dL POC Glucose (mg/dL) 278 H (75-99) mg/dL Triglycerides 150 H (<150) mg/dL HDL Cholesterol 39 L (40-60) mg/dL 07/06/17 07/06/17 07/06/17 Range/Units 04:31 05:59 11:39 Hgb (13.0-17.5) gm/dL Hct (39.0-53.0) % APTT 31.6 H (22.0-30.0) sec Creatinine (0.66-1.25) mg/dL Glucose (74-99) mg/dL POC Glucose (mg/dL) 186 H 291 H (75-99) mg/dL Triglycerides (<150) mg/dL HDL Cholesterol (40-60) mg/dL 07/06/17 Range/Units 17:16 Hgb (13.0-17.5) gm/dL Hct (39.0-53.0) % APTT (22.0-30.0) sec Creatinine (0.66-1.25) mg/dL Glucose (74-99) mg/dL POC Glucose (mg/dL) 300 H (75-99) mg/dL Triglycerides (<150) mg/dL HDL Cholesterol (40-60) mg/dL Assessment and Plan Assessment: 1. Chest pain, possible unstable angina, indeterminate troponin 0.068 2. Possible GERD's 3. Diabetes mellitus type 2, uncontrolled 4. Hyponatremia 5. Chronic kidney disease stage II 6. Ischemic cardiomyopathy, history of Plan: Continue current medication regime ,PPI,monitoring and symptomatic treatment. As mentioned above scheduled for EGD in a.m. with GI. Further recommendations to follow. The impression and plan of care has been dictated as directed. : I performed a history and examination of this patient, discussed the same with the dictator. I agree with the dictator's note ,documented as a scribe. Any additional findings or plans will be noted.
[2017-07-06] MEDS ORDERED: traMADol 50 MG TAB PO PRN (20:15)
[2017-07-06] MEDS: ROSUVASTATIN CALCIUM 40 MG PO SCH (20:27)
[2017-07-06] MEDS: PANTOPRAZOLE 40 MG/10 ML VIAL IVP SCH (20:32)
[2017-07-06] MEDS: PRASUGREL 10 MG TAB PO SCH (20:32)
[2017-07-06] MEDS: LINAGLIPTIN 5 MG TABLET PO SCH (21:11)
[2017-07-06 21:13] LABS: Glucose,Whole Blood 157 mg/dL (75-99)
[2017-07-07] MEDS: metFORMIN 500 MG TAB PO SCH (03:35)
[2017-07-07] MEDS: GLIMEPIRIDE 4 MG TAB PO SCH (03:35)
[2017-07-07] MEDS: NITROGLYCERIN OINT 1 INCH/GM PACKET TOPICAL SCH (03:35)
[2017-07-07 06:23] LABS: Glucose,Whole Blood 257 mg/dL (75-99)
[2017-07-07 06:34] LABS: Basophils # (A) 0.1 k/uL (0-0.2); Basophils % (A) 1 %; Eosinophils # (A) 0.7 k/uL (0-0.7); Eosinophils % (A) 12 %; HCT 38.2 % (39.0-53.0); HGB 11.5 gm/dL (13.0-17.5); Hypochromasia Moderate; Lymphocytes # (A) 1.7 k/uL (1.0-4.8); Lymphocytes % (A) 28 %; MCH 25.6 pg (25.0-35.0); MCHC 30.1 g/dL (31.0-37.0); MCV 85.3 fL (80.0-100.0); Mean Platelet Volume 6.9; Monocytes # (A) 0.3 k/uL (0-1.0); Monocytes % (A) 4 %; Neutrophils # (A) 3.2 k/uL (1.3-7.7); Neutrophils % (A) 52 %; Platelet Count 210 k/uL (150-450); RBC 4.48 m/uL (4.30-5.90); RDW 14.8 % (11.5-15.5); WBC 6.1 k/uL (3.8-10.6)
[2017-07-07] MEDS: INSULIN ASPART 100 UNIT/ML 1 ML 10 ML VIAL SQ SCH (06:35)
[2017-07-07 07:21] LABS: Anion Gap 9 mmol/L; Blood Urea Nitrogen 22 mg/dL (9-20); Calcium 8.7 mg/dL (8.4-10.2); Carbon Dioxide 23 mmol/L (22-30); Chloride 101 mmol/L (98-107); Glucose 275 mg/dL (74-99); Potassium 4.5 mmol/L (3.5-5.1); Sodium 133 mmol/L (137-145)
[2017-07-07] MEDS ORDERED: fentaNYL (PF) 50 MCG/ML 2 ML AMP ONE (07:35)
[2017-07-07] MEDS ORDERED: PROPOFOL 10 MG/ML 20 ML VIAL IV ONE (07:35)
[2017-07-07] MEDS ORDERED: GLYCOPYRROLATE 0.2 MG/ML 2 ML VIAL ONE (07:35)
[2017-07-07] MEDS ORDERED: IV FLUID CONTINUATION 1,000 ML IV ONE (07:37)
--- NOTE | 2017-07-07 07:50 | P.PCN ---
Date of Procedure: 07/07/17 Procedure(s) Performed: BRIEF HISTORY: Patient is a 41-year-old, pleasant, white male, admitted hospital with atypical chest pain and epigastric pain with heartburn for the last 2 days' duration. Cardiac workup negative. His and scheduled for an upper endoscopy to evaluate for. PROCEDURE PERFORMED: Esophagogastroduodenoscopy. PREOPERATIVE DIAGNOSIS: GERD/atypical chest. IV sedation per anesthesia. PROCEDURE: After informed consent was obtained, the patient was brought into the endoscopy unit. IV sedation was administered by Anesthesia under continuous monitoring. Initially the Olympus GIF-140 video endoscope was inserted into the mouth. Esophagus intubated without any difficulty. It was gradually advanced into the stomach and duodenum and carefully examined. The bulb and the second part of the duodenum appeared normal. The scope at this time was withdrawn to the stomach, adequately insufflated with air, and upon careful examination, mucosa of the antrum, body, cardia and the fundus appeared normal. There was small amount of retained food noted in the fundus of the stomach. The scope was then withdrawn into the esophagus. The GE junction was located at 39 cm from the incisors. Small hiatal hernia noted. There were linear erosions and ulcerations in the distal esophagus consistent with LA grade D reflux esophagitis. The rest of the esophagus appeared normal and the patient tolerated the procedure well. IMPRESSION: 1. Linear erosions and ulcerations in the distal esophagus consistent with LA grade D reflux esophagitis. 2. Small hiatal hernia. 3. Mild gastroparesis RECOMMENDATIONS: The findings of this examination were discussed with the patient . He was advised to continue with Protonix 40 mg by mouth twice daily and follow antireflux measures.
--- NOTE | 2017-07-07 08:10 | CONS ---
CONSULTATION DATE OF SERVICE: 07/06/2017. PHYSICIAN REQUESTING CONSULT: Dr. Clay. REASON FOR CONSULTATION: Atypical chest pain and heartburn. HISTORY OF PRESENT ILLNESS: The patient is a 41-year-old pleasant white male has a history of coronary artery disease, status post angioplasty with stent placement last year, history of diabetes mellitus and hypertension, presents to the emergency room with chest pain and heartburn for the last 3 days duration. Since being in the hospital, he was evaluated by Cardiology who recommended a GI workup. The patient states the pain was mostly in the epigastric area, burning in sensation, radiated to the back, associated with some nausea but no emesis. He also had some black tarry stools 2 days prior to hospitalization. Never had these symptoms in the past. We were hence consulted for possible upper endoscopy. This morning he is feeling a little bit better. PAST MEDICAL HISTORY: Significant for coronary artery disease, hypertension, hypercholesteremia, diabetes mellitus, morbid obesity, gastroesophageal reflux disease, and asthma. HOME MEDICATIONS: 1. Zantac. 2. Zestril. 3. Lasix. 4. Imdur. 5. . 6. Neurontin. 7. Ventolin. 8. Ranexa. 9. Mysoline. 10.Effient. 11.Prilosec. 12.Nitrostat. 13.Lopressor. 14.Tradjenta. 15.Metformin. 16.Zoloft. 17.Crestor. ALLERGIES: E-MYCIN, MECLIZINE, PENICILLIN, SHELLFISH, IODINE, NAPROXEN, CEPHALEXIN, LIPITOR. SOCIAL HISTORY: No smoking. Occasional alcohol use. FAMILY HISTORY: Unremarkable other than positive for coronary artery disease in father. REVIEW OF SYSTEMS: Cardiopulmonary: No chest pain or shortness of breath. Genitourinary: No dysuria or hematuria. Musculoskeletal: Unremarkable. Skin: Unremarkable. ENT: Vision unremarkable. Constitutional: No recent weight loss. No fevers, chills or night sweats. PHYSICAL EXAMINATION: Blood pressure 108/71, pulse rate 82, temperature 94. HEENT: Examination unremarkable. Conjunctivae pink. Sclerae nonicteric. No lesions. NECK: No JVD or lymph node enlargement. CHEST: Clear to auscultation. HEART: Regular rate and rhythm. ABDOMEN: Soft. Bowel sounds are positive. No organomegaly. EXTREMITIES: No pedal edema. SKIN: No rashes. NEUROLOGIC: Alert and oriented x3. No focal deficits. LABS: At the time of admission, hemoglobin 13.1, WBC 7.2, platelets normal. PT/INR is within normal limits. ALT, AST, T-bilirubin and alkaline phosphatase are normal. Troponin was 0.060. IMPRESSION: 1. This is a patient who presents to the hospital with atypical chest pain and epigastric pain associated with heartburn for the last 2 to 3 days duration. Symptoms are very suggestive of gastroesophageal reflux. He did have cardiac evaluation, which was negative. 2. History of coronary artery disease status post myocardial infarction in the past, status post cardiac cath with angioplasty 6 months ago. RECOMMENDATIONS: 1. Continue with Protonix 40 mg daily. 2. Will proceed with an upper endoscopy today. Discussed with the patient benefits and complications of procedure and he is agreeable to it. Thank you for this consultation. MMODL / IJN: [id number] /
[2017-07-07] MEDS: METOPROLOL TARTRATE 25 MG TAB PO SCH (09:09)
[2017-07-07] MEDS: SERTRALINE 100 MG TAB PO SCH (09:09)
[2017-07-07] MEDS: RANOLAZINE 500 MG TAB.ER.12H PO SCH (09:09)
[2017-07-07] MEDS: PANTOPRAZOLE 40 MG/10 ML VIAL IVP SCH (09:10)
[2017-07-07] MEDS: CHOLECALCIFEROL 1,000 UNIT TAB PO SCH (09:10)
[2017-07-07] MEDS: LISINOPRIL 2.5 MG TAB PO SCH (09:10)
[2017-07-07] MEDS: ASPIRIN 325 MG TAB PO SCH (09:10)
[2017-07-07] MEDS: GABAPENTIN 400 MG CAP PO SCH (09:10)
[2017-07-07] MEDS: FUROSEMIDE 40 MG TAB PO SCH (09:10)
[2017-07-07] MEDS: PRIMIDONE 50 MG TAB PO SCH (09:10)
[2017-07-07 09:20] VITALS: RESP 20; TEMP 97
[2017-07-07 11:36] VITALS: BP 99/60; PULSE 75
[2017-07-07 11:58] LABS: Glucose,Whole Blood 273 mg/dL (75-99)
--- NOTE | 2017-07-07 17:12 | P.DS ---
Providers Date of admission: 07/05/17 03:39 Expected date of discharge: 07/07/17 Attending physician: Safia Gallagher Consults: 07/05/17 03:39 Consult Physician Urgent Consulting Provider: [facility] Consult Reason/Comments: Unstable angina Do you want consulting provider notified?: Yes 07/06/17 13:41 Consult Physician Routine Consulting Provider: Angela Barney Consult Reason/Comments: Burning chest sensation, ? GERDS Do you want consulting provider notified?: Yes Primary care physician: [facility] Course: Final Diagnoses: 1. Chest pain, possible unstable angina, indeterminate troponin 0.068; atypical , not indicative of acute coronary syndrome as per cardiology. Status post EGD; LA Grade D reflux esophagitis,small hiatal hernia, mild gastroparesis. 2. Possible GERD's 3. Diabetes mellitus type 2, hemoglobin A1c 10.8. 4. Hyponatremia 5. Chronic kidney disease stage II 6. Ischemic cardiomyopathy, history of Hospital course:This is a 41-year-old gentleman admitted with chest pain and multiple other medical issues. Evaluated by cardiology, atypical with no further workup recommended. Patient complained of burning midsternal chest pain that radiated down across bilateral chest under his breasts, continuously with no relation to diet intake, exertion. Evaluated by GI, underwent EGD, reporting LA Grade D reflux esophagitis,small hiatal hernia, mild gastroparesis. Cleared by GI and cardiology for discharge. Patient is being discharged home in a stable condition with guarded prognosis. PHYSICAL EXAM:GENERAL: Sitting up at side of bed, no acute distress.CARDIOVASCULAR: S1, S2 muffled. No murmur.RESPIRATION: Breath sounds diminished in the bases. No rhonchi or crackles.ABDOMEN: Soft, nontender . No guarding. Bowel sounds heard.NERVOUS SYSTEM: No focal deficits. The impression and plan of care has been dictated as directed. : I performed a history and examination of this patient, discussed the same with the dictator. I agree with the dictator's note ,documented as a scribe. Any additional findings or plans will be noted. Time taken: 35 minutes Patient Condition at Discharge: Stable Plan - Discharge Summary Discharge Rx Participant: No New Discharge Prescriptions: New Pantoprazole Sodium [Protonix] 40 mg PO BID #60 tablet.dr Jeter Nitroglycerin Sl Tabs [Nitrostat] 0.4 mg SUBLINGUAL Q5M PRN PRN Reason: Chest Pain metFORMIN HCL 1,000 mg PO AC-BID Glimepiride 4 mg PO AC-BID Dulaglutide [Trulicity] 1.5 mg SQ OROZCO Rosuvastatin Calcium 40 mg PO HS Ranolazine [Ranexa] 1,000 mg PO BID Primidone [Mysoline] 100 mg PO BID Cholecalciferol (Vitamin D3) [Vitamin D3] 2,000 unit PO DAILY Linagliptin [Tradjenta] 5 mg PO HS Sertraline HCl [Zoloft] 200 mg PO DAILY #28 Albuterol Inhaler [Ventolin Hfa Inhaler] 2 puff INHALATION RT-Q4H PRN PRN Reason: Shortness Of Breath Gabapentin [Neurontin] 400 mg PO TID Metoprolol Tartrate [Lopressor] 75 mg PO BID Prasugrel [Effient] 10 mg PO HS Ranitidine HCl [Zantac] 300 mg PO QAM Lisinopril [Zestril] 2.5 mg PO DAILY Furosemide [Lasix] 40 mg PO DAILY traMADol HCL [Ultram] 100 mg PO Q6H PRN PRN Reason: Pain Discontinued Omeprazole [PriLOSEC] 40 mg PO HS Discharge Medication List Nitroglycerin Sl Tabs [Nitrostat] 0.4 mg SUBLINGUAL Q5M PRN 10/13/13 [History] metFORMIN HCL 1,000 mg PO AC-BID 07/03/15 [History] Dulaglutide [Trulicity] 1.5 mg SQ OROZCO 03/10/16 [History] Glimepiride 4 mg PO AC-BID 03/10/16 [History] Rosuvastatin Calcium 40 mg PO HS 05/05/16 [History] Ranolazine [Ranexa] 1,000 mg PO BID 06/09/16 [History] Primidone [Mysoline] 100 mg PO BID 06/30/16 [History] Cholecalciferol (Vitamin D3) [Vitamin D3] 2,000 unit PO DAILY 11/07/16 [History] Linagliptin [Tradjenta] 5 mg PO HS 12/19/16 [History] Sertraline HCl [Zoloft] 200 mg PO DAILY #28 01/27/17 [Rx] Albuterol Inhaler [Ventolin Hfa Inhaler] 2 puff INHALATION RT-Q4H PRN 02/14/17 [ History] Gabapentin [Neurontin] 400 mg PO TID 02/24/17 [History] Metoprolol Tartrate [Lopressor] 75 mg PO BID 05/14/17 [History] Prasugrel [Effient] 10 mg PO HS 05/26/17 [History] Furosemide [Lasix] 40 mg PO DAILY 07/05/17 [History] Lisinopril [Zestril] 2.5 mg PO DAILY 07/05/17 [History] Ranitidine HCl [Zantac] 300 mg PO QAM 07/05/17 [History] traMADol HCL [Ultram] 100 mg PO Q6H PRN 07/06/17 [History] Pantoprazole Sodium [Protonix] 40 mg PO BID #60 tablet. 07/07/17 [Rx] Follow up Appointment(s)/Referral(s): Angela Barney MD [STAFF PHYSICIAN] - 07/22/17 1:00 pm (thursday) Junie New MD [Primary Care Provider] - 07/13/17 10:45 am (thursday) Ambulatory/Diagnostic Orders: Complete Blood Count w/diff [LAB.AMB] Time Frame: 3 Days, Location: Determined By Patient Patient Instructions/Handouts: Hiatal Hernia (DC) Activity/Diet/Wound Care/Special Instructions: COnsist. carb diet accu cheks achs, maintain log, take to F/U with PCP for further rec. Imdur on hold, borderline Hypotension, re-eval op with PCP at f/u Diabetic education classes OP Discharge Disposition: HOME SELF-CARE
== END 2017-07-07 12:17 | disposition home or self-care (01) | DRG 303 ==
LOC: EC 02:30 → 6SEL 03:39
PROVIDERS: ADMIT Hospitalist; ATTEND Hospitalist
PROC: 0DJ08ZZ Inspection of Upper Intestinal Tract, Via Natural or Artificial Opening Endoscopic (ICD-10-PCS; principal; 2017-07-07 07:30)
DX: I25.110 Atherosclerotic heart disease of native coronary artery with unstable angina pectoris (principal); E11.22 Type 2 diabetes mellitus with diabetic chronic kidney disease; E11.42 Type 2 diabetes mellitus with diabetic polyneuropathy; K22.10 Ulcer of esophagus without bleeding; E66.01 Morbid (severe) obesity due to excess calories; E87.1 Hypo-osmolality and hyponatremia; I13.0 Hypertensive heart and chronic kidney disease with heart failure and stage 1 through stage 4 chronic kidney disease, or unspecified chronic kidney disease; Z68.41 Body mass index [BMI] 40.0-44.9, adult; I50.9 Heart failure, unspecified; E11.65 Type 2 diabetes mellitus with hyperglycemia; E11.43 Type 2 diabetes mellitus with diabetic autonomic (poly)neuropathy; E78.5 Hyperlipidemia, unspecified; F43.10 Post-traumatic stress disorder, unspecified; G47.33 Obstructive sleep apnea (adult) (pediatric); I25.2 Old myocardial infarction; I25.5 Ischemic cardiomyopathy; J45.909 Unspecified asthma, uncomplicated; K21.0 Gastro-esophageal reflux disease with esophagitis; K31.84 Gastroparesis; K44.9 Diaphragmatic hernia without obstruction or gangrene; M19.90 Unspecified osteoarthritis, unspecified site; N18.2 Chronic kidney disease, stage 2 (mild); F32.9 Major depressive disorder, single episode, unspecified; F41.9 Anxiety disorder, unspecified; G89.29 Other chronic pain; L40.9 Psoriasis, unspecified; G43.909 Migraine, unspecified, not intractable, without status migrainosus; Z79.84 Long term (current) use of oral hypoglycemic drugs; Z79.899 Other long term (current) drug therapy; Z79.82 Long term (current) use of aspirin; Z88.1 Allergy status to other antibiotic agents; Z88.5 Allergy status to narcotic agent; Z95.810 Presence of automatic (implantable) cardiac defibrillator; Z88.8 Allergy status to other drugs, medicaments and biological substances; Z91.041 Radiographic dye allergy status; Z88.0 Allergy status to penicillin; Z91.013 Allergy to seafood; Z95.5 Presence of coronary angioplasty implant and graft; Z86.73 Personal history of transient ischemic attack (TIA), and cerebral infarction without residual deficits; Z86.14 Personal history of Methicillin resistant Staphylococcus aureus infection; Z90.49 Acquired absence of other specified parts of digestive tract; Z82.49 Family history of ischemic heart disease and other diseases of the circulatory system
CPT/HCPCS: 36415; 43239; 71046; 80048; 80053; 80061; 82550; 82553; 83036; 83735; 84484; 85025; 85610; 85730; 93005; 94760; 96365; 96376; 99291

== ENCOUNTER 2017-07-26 21:39 | Inpatient (IN) | payer MEDICARE, OTHER ==
[2017-07-26] MEDS ORDERED: NITROGLYCERIN OINT 1 INCH/GM PACKET TOPICAL STA (22:02)
--- NOTE | 2017-07-26 22:06 | ED ---
General Adult HPI - General Chief complaint: Chest Pain Stated complaint: chest pain Time Seen by Provider: 07/26/17 21:45 Source: patient, RN notes reviewed Mode of arrival: EMS Limitations: no limitations - History of Present Illness Initial comments: This is a 41-year-old male who presents emergency department with past medical history significant for diabetes hypertension and cardiac disease. Patient has multiple stents he is placed defibrillator in place. Patient states tonight he had chest pain in 2 different occasions to nitro and both times it resolved. Patient states became back a third time and he became uncomfortable so he came to the emergency department. Patient states it made a little bit short of breath. Patient states the pain was about a 6 out of 10. Patient states received an aspirin in the am does. Patient denies any radiation of the pain. Patient denies any nausea. Patient denies any diaphoresis. Patient denies any calf tenderness or swelling. Patient denies abdominal pain. - Related Data Home Medications Medication Instructions Recorded Confirmed Nitroglycerin Sl Tabs [Nitrostat] 0.4 mg SUBLINGUAL Q5M PRN 10/13/13 07/26/17 metFORMIN HCL 1,000 mg PO AC-BID 07/03/15 07/26/17 Dulaglutide [Trulicity] 1.5 mg SQ OROZCO 03/10/16 07/26/17 Glimepiride 4 mg PO AC-BID 03/10/16 07/26/17 Rosuvastatin Calcium 40 mg PO HS 05/05/16 07/26/17 Ranolazine [Ranexa] 1,000 mg PO BID 06/09/16 07/26/17 Primidone [Mysoline] 100 mg PO BID 06/30/16 07/26/17 Cholecalciferol (Vitamin D3) 2,000 unit PO DAILY 11/07/16 07/26/17 [Vitamin D3] Linagliptin [Tradjenta] 5 mg PO HS 12/19/16 07/26/17 Albuterol Inhaler [Ventolin Hfa 2 puff INHALATION RT-Q4H PRN 02/14/17 07/26/17 Inhaler] Gabapentin [Neurontin] 400 mg PO TID 02/24/17 07/26/17 Metoprolol Tartrate [Lopressor] 75 mg PO BID 05/14/17 07/26/17 Prasugrel [Effient] 10 mg PO HS 05/26/17 07/26/17 Furosemide [Lasix] 40 mg PO DAILY 07/05/17 07/26/17 Lisinopril [Zestril] 2.5 mg PO DAILY 07/05/17 07/26/17 Ranitidine HCl [Zantac] 300 mg PO QAM 07/05/17 07/26/17 ARIPiprazole [Abilify] 15 mg PO DAILY 07/26/17 07/26/17 Aspirin 81 mg PO DAILY 07/26/17 07/26/17 Isosorbide Mononitrate ER [Imdur] 30 mg PO DAILY 07/26/17 07/26/17 Previous Rx's Medication Instructions Recorded Sertraline HCl [Zoloft] 200 mg PO DAILY #28 01/27/17 Pantoprazole Sodium [Protonix] 40 mg PO BID #60 tablet. 07/07/17 Allergies Allergy/AdvReac Type Severity Reaction Status Date / Time erythromycin base Allergy Severe Swelling Verified 07/26/17 21:44 [Erythromycin Base] codeine Allergy Unknown Swelling Verified 07/26/17 21:44 meclizine Allergy Unknown Unknown Verified 07/26/17 21:44 Penicillins Allergy Unknown Rash/Hives Verified 07/26/17 21:44 shellfish derived Allergy Unknown Anaphylaxis Verified 07/26/17 21:44 Fish Containing Products Allergy Anaphylaxis Verified 07/26/17 21:44 [Fish] Iodinated Contrast- Oral and Allergy Anaphylaxis Verified 07/26/17 21:44 IV Dye cephalexin monohydrate AdvReac Unknown Nausea & Verified 07/26/17 21:44 [From Keflex] Vomiting naproxen AdvReac Unknown Compromises Verified 07/26/17 21:44 Kidney Function atorvastatin calcium AdvReac Myalgia Verified 07/26/17 21:44 [From Lipitor] hydrocodone [From [place]] AdvReac Rapid Verified 07/26/17 21:44 Heart Rate Review of Systems ROS Statement: Those systems with pertinent positive or pertinent negative responses have been documented in the HPI. ROS Other: All systems not noted in ROS Statement are negative. Past Medical History Past Medical History: Asthma, Coronary Artery Disease (CAD), Chest Pain / Angina , Heart Failure, CVA/TIA, Diabetes Mellitus, GERD/Reflux, Hyperlipidemia, Hypertension, Myocardial Infarction (CA), Osteoarthritis (OA), Pneumonia, Skin Disorder, Sleep Apnea/CPAP/BIPAP Additional Past Medical History / Comment(s): Coronary artery disease with multiple vessel disease, ischemic cardiomyopathy, diabetic neuropathy bilateral hands and feet, hypertensive cardiovascular disease, SHELIA with no device, chronic gastritis,degenerative disc disease, chronic back pain, depression with hx of suicide attempts, GASTROPARESIS, PSORIASES,NIDDM type II, UTI, migraines, TIA, PUD, hiatal hernia, L rotator cuff tear, bronchitis, pseudoaneurysm L groin post procedure. 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 Past Anesthesia/Blood Transfusion Reactions: No Reported Reaction Additional Past Anesthesia/Blood Transfusion Reaction / Comment(s): . Date of Last Stent Placement:: 12/23/16 Type of Cardiac Device: Biventricular Pacemaker, AICD Device Placement Date:: 09/19/15 Past Psychological History: Anxiety, Depression, PTSD Smoking Status: Never smoker Past Alcohol Use History: None Reported Past Drug Use History: None Reported - Past Family History Mother Family Medical History: Coronary Artery Disease (CAD), Myocardial Infarction (CA ) Additional Family Medical History / Comment(s): 7 CA and faulty heart valve. Pt does not know the age when mother had her MIs. Father History Unknown: Yes Additional Family Medical History / Comment(s): Does not know who father is Brother(s) Family Medical History: Congestive Heart Failure (CHF), Myocardial Infarction ( CA) Additional Family Medical History / Comment(s): Parkinsons. Pt does not know at what age his brother had a CA Patient has Family Medical History: No Reported History Additional Family Medical History / Comment(s): There is a strong family history for heart disease, hypertension, and diabetes. General Exam - General Exam Comments Initial Comments: GENERAL: Patient is well-developed and well-nourished. Patient is nontoxic and well- hydrated and is in mild distress. ENT: Neck is soft and supple. No significant lymphadenopathy is noted. Oropharynx is clear. Moist mucous membranes. Neck has full range of motion without eliciting any pain. EYES: The sclera were anicteric and conjunctiva were pink and moist. Extraocular movements were intact and pupils were equal round and reactive to light. Eyelids were unremarkable. PULMONARY: Unlabored respirations. Good breath sounds bilaterally. No audible rales rhonchi or wheezing was noted. CARDIOVASCULAR: There is a regular rate and rhythm without any murmurs gallops or rubs. ABDOMEN: Soft and nontender with normal bowel sounds. No palpable organomegaly was noted. There is no palpable pulsatile mass. SKIN: Skin is clear with no lesions or rashes and otherwise unremarkable. NEUROLOGIC: Patient is alert and oriented x3. Cranial nerves II through XII are grossly intact. Motor and sensory are also intact. Normal speech, volume and content. Symmetrical smile. MUSCULOSKELETAL: Normal extremities with adequate strength and full range of motion. No lower extremity swelling or edema. No calf tenderness. LYMPHATICS: No significant lymphadenopathy is noted PSYCHIATRIC: Normal psychiatric evaluation. Normal interpersonal interactions appears functionally intact in deals appropriately with others. No signs of depression. No signs of anxiety. Limitations: no limitations Course Vital Signs 07/26/17 07/26/17 21:41 22:32 Temperature 97.2 F L Pulse Rate 88 73 Respiratory 16 16 Rate Blood Pressure 122/77 122/64 O2 Sat by Pulse 97 99 Oximetry Medical Decision Making - Medical Decision Making EKG shows paced rhythm at 81 bpm SD interval 254 QRS is under 26 QT interval 394 QTC is 08/28/1956. Patient's EKG shows no ST segment elevation or depression. Chest x-ray shows no acute abnormality. Patient's troponin is elevated and he continues to have some mild chest pain. I started the patient heparin. I spoke with some physicians I admitted the patient wrote a minute orders I consult to cardiology continued heparin and aspirin and Nitropaste on the floor. - Lab Data Result diagrams: 07/26/17 22:07 07/26/17 22:07 Lab Results 07/26/17 07/26/17 07/26/17 Range/Units 22:07 22:07 22:07 WBC 5.7 (3.8-10.6) k/uL RBC 4.43 (4.30-5.90) m/uL Hgb 11.5 L (13.0-17.5) gm/dL Hct 35.9 L (39.0-53.0) % MCV 81.1 (80.0-100.0) fL MCH 26.0 (25.0-35.0) pg MCHC 32.1 (31.0-37.0) g/dL RDW 15.0 (11.5-15.5) % Plt Count 224 (150-450) k/uL Neutrophils % 57 % Lymphocytes % 30 % Monocytes % 5 % Eosinophils % 7 % Basophils % 1 % Neutrophils # 3.3 (1.3-7.7) k/uL Lymphocytes # 1.7 (1.0-4.8) k/uL Monocytes # 0.3 (0-1.0) k/uL Eosinophils # 0.4 (0-0.7) k/uL Basophils # 0.1 (0-0.2) k/uL Sodium 131 L (137-145) mmol/L Potassium 5.2 H (3.5-5.1) mmol/L Chloride 97 L (98-107) mmol/L Carbon Dioxide 25 (22-30) mmol/L Anion Gap 9 mmol/L BUN 21 H (9-20) mg/dL Creatinine 1.00 (0.66-1.25) mg/dL Est GFR (MDRD) Af Amer >60 (>60 ml/min/1.73 sqM) Est GFR (MDRD) Non-Af >60 (>60 ml/min/1.73 sqM) Glucose 507 H* (74-99) mg/dL Calcium 9.4 (8.4-10.2) mg/dL Magnesium 1.6 (1.6-2.3) mg/dL Total Bilirubin 0.2 (0.2-1.3) mg/dL AST 16 L (17-59) U/L ALT 24 (21-72) U/L Alkaline Phosphatase 120 (38-126) U/L Total Creatine Kinase 195 H (55-170) U/L CK-MB (CK-2) 3.1 H* (0.0-2.4) ng/mL CK-MB (CK-2) Rel Index 1.6 Troponin I 0.234 H* (0.000-0.034) ng/mL Total Protein 5.7 L (6.3-8.2) g/dL Albumin 3.3 L (3.5-5.0) g/dL Acetone, Qual (Negative) 07/26/17 Range/Units 22:07 WBC (3.8-10.6) k/uL RBC (4.30-5.90) m/uL Hgb (13.0-17.5) gm/dL Hct (39.0-53.0) % MCV (80.0-100.0) fL MCH (25.0-35.0) pg MCHC (31.0-37.0) g/dL RDW (11.5-15.5) % Plt Count (150-450) k/uL Neutrophils % % Lymphocytes % % Monocytes % % Eosinophils % % Basophils % % Neutrophils # (1.3-7.7) k/uL Lymphocytes # (1.0-4.8) k/uL Monocytes # (0-1.0) k/uL Eosinophils # (0-0.7) k/uL Basophils # (0-0.2) k/uL Sodium (137-145) mmol/L Potassium (3.5-5.1) mmol/L Chloride (98-107) mmol/L Carbon Dioxide (22-30) mmol/L Anion Gap mmol/L BUN (9-20) mg/dL Creatinine (0.66-1.25) mg/dL Est GFR (MDRD) Af Amer (>60 ml/min/1.73 sqM) Est GFR (MDRD) Non-Af (>60 ml/min/1.73 sqM) Glucose (74-99) mg/dL Calcium (8.4-10.2) mg/dL Magnesium (1.6-2.3) mg/dL Total Bilirubin (0.2-1.3) mg/dL AST (17-59) U/L ALT (21-72) U/L Alkaline Phosphatase (38-126) U/L Total Creatine Kinase (55-170) U/L CK-MB (CK-2) (0.0-2.4) ng/mL CK-MB (CK-2) Rel Index Troponin I (0.000-0.034) ng/mL Total Protein (6.3-8.2) g/dL Albumin (3.5-5.0) g/dL Acetone, Qual Negative (Negative) Critical Care Time Critical Care Time: Yes Total Critical Care Time: 35 Disposition Clinical Impression: Unstable angina Disposition: ADMITTED IP TO THIS HOSP Referrals: Junie New MD [Primary Care Provider] - 1-2 days Time of Disposition: 23:15
[2017-07-26 22:20] LABS: Basophils # (A) 0.1 k/uL (0-0.2); Basophils % (A) 1 %; Eosinophils # (A) 0.4 k/uL (0-0.7); Eosinophils % (A) 7 %; HCT 35.9 % (39.0-53.0); HGB 11.5 gm/dL (13.0-17.5); Lymphocytes # (A) 1.7 k/uL (1.0-4.8); Lymphocytes % (A) 30 %; MCHC 32.1 g/dL (31.0-37.0); MCV 81.1 fL (80.0-100.0); Monocytes # (A) 0.3 k/uL (0-1.0); Monocytes % (A) 5 %; Neutrophils # (A) 3.3 k/uL (1.3-7.7); Neutrophils % (A) 57 %; Platelet Count 224 k/uL (150-450); RBC 4.43 m/uL (4.30-5.90); WBC 5.7 k/uL (3.8-10.6)
[2017-07-26 22:28] LABS: ALT 24 U/L (21-72); AST 16 U/L (17-59); Albumin 3.3 g/dL (3.5-5.0); Alkaline Phosphatase 120 U/L (38-126); Anion Gap 9 mmol/L; Blood Urea Nitrogen 21 mg/dL (9-20); Calcium 9.4 mg/dL (8.4-10.2); Carbon Dioxide 25 mmol/L (22-30); Chloride 97 mmol/L (98-107); Magnesium 1.6 mg/dL (1.6-2.3); Potassium 5.2 mmol/L (3.5-5.1); Sodium 131 mmol/L (137-145); Total Bilirubin 0.2 mg/dL (0.2-1.3); Total Protein 5.7 g/dL (6.3-8.2)
[2017-07-26 22:37] LABS: Glucose 507 mg/dL (74-99)
[2017-07-26] MEDS ORDERED: INSULIN ASPART 100 UNIT/ML 1 ML 10 ML VIAL SQ ONE (22:37)
[2017-07-26 22:39] LABS: Prothrombin Time 9.8 sec (9.0-12.0)
--- NOTE | 2017-07-26 22:47 | XR ---
EXAMINATION TYPE: XR chest 2V DATE OF EXAM: 07/26/2017 COMPARISON: 07/05/2017 HISTORY: Chest pain TECHNIQUE: Frontal and lateral views of the chest are obtained. FINDINGS: Heart and mediastinum are normal. Lungs are clear of infiltrate. There is a left axillary pacemaker with the lead tips in the right ventricle. There are chest leads. Bony thorax is intact. IMPRESSION: Normal chest. No change.
[2017-07-26 22:56] LABS: Creatine Kinase MB 3.1 ng/mL (0.0-2.4); Troponin I 0.234 ng/mL (0.000-0.034)
[2017-07-26] MEDS ORDERED: NITROGLYCERIN SL TABS 0.4 MG TAB SUBLINGUAL PRN ×2 (23:15→23:32)
[2017-07-26 23:29] LABS: Partial Thromboplastin Time 20.7 sec (22.0-30.0)
[2017-07-26] MEDS ORDERED: MORPHINE SULFATE 4 MG/ML SYRINGE IV PRN (23:29)
[2017-07-26] MEDS ORDERED: ACETAMINOPHEN TAB 325 MG TAB PO PRN (23:29)
[2017-07-26] MEDS ORDERED: ALBUTEROL NEBULIZED 2.5 MG/3 ML INHALATION PRN (23:32)
[2017-07-26] MEDS ORDERED: INSULIN DETEMIR 100 UNIT/ML 10 ML VIAL SQ SCH (23:45)
--- NOTE | 2017-07-26 23:46 | P.HPIM ---
History of Present Illness H&P Date: 07/26/17 Chief Complaint: Chest pain 41-year-old male who presents emergency Department complaining of chest pain. Patient states he's had 8 stents and 10 heart attacks in the past. Patient states tonight he had chest pain in 2 different occasions, each lasting about 45 min, he took some nitro and both times it resolved. Patient states the pain came back a third time and that made him came to the emergency department. Patient states it made a little bit short of breath, dizziness associated with the pain. It felt like burning/acid reflux and it was radiating to his arm. Patient states the pain was about a 6 out of 10. Currently all those symptoms resolved. Patient denies any abdominal pain, nausea or vomiting. Patient denies any dysuria, hematuria or urinary frequency. Patient denies any palpitations. Patient states he last had a cardiac stent back in December. Patient frequently presented to the hospital with similar complaint in the past , last month he was worked up with an EGD because cardiology felt that his pain was noncardiac and the EGD showed some esophagitis. Review of Systems 12 point review of system was performed, negative except for HPI Past Medical History Past Medical History: Asthma, Coronary Artery Disease (CAD), Chest Pain / Angina , Heart Failure, CVA/TIA, Diabetes Mellitus, GERD/Reflux, Hyperlipidemia, Hypertension, Myocardial Infarction (VT), Osteoarthritis (OA), Pneumonia, Skin Disorder, Sleep Apnea/CPAP/BIPAP Additional Past Medical History / Comment(s): Coronary artery disease with multiple vessel disease, ischemic cardiomyopathy, diabetic neuropathy bilateral hands and feet, hypertensive cardiovascular disease, SHELIA with no device, chronic gastritis,degenerative disc disease, chronic back pain, depression with hx of suicide attempts, GASTROPARESIS, PSORIASES,NIDDM type II, UTI, migraines, TIA, PUD, hiatal hernia, L rotator cuff tear, bronchitis, pseudoaneurysm L groin post procedure. 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 Past Anesthesia/Blood Transfusion Reactions: No Reported Reaction Additional Past Anesthesia/Blood Transfusion Reaction / Comment(s): . Date of Last Stent Placement:: 12/23/16 Type of Cardiac Device: Biventricular Pacemaker, AICD Device Placement Date:: 09/19/15 Past Psychological History: Anxiety, Depression, PTSD Smoking Status: Never smoker Past Alcohol Use History: None Reported Past Drug Use History: None Reported - Past Family History Mother Family Medical History: Coronary Artery Disease (CAD), Myocardial Infarction (VT ) Additional Family Medical History / Comment(s): 7 VT and faulty heart valve. Pt does not know the age when mother had her MIs. Father History Unknown: Yes Additional Family Medical History / Comment(s): Does not know who father is Brother(s) Family Medical History: Congestive Heart Failure (CHF), Myocardial Infarction ( VT) Additional Family Medical History / Comment(s): Parkinsons. Pt does not know at what age his brother had a VT Patient has Family Medical History: No Reported History Additional Family Medical History / Comment(s): There is a strong family history for heart disease, hypertension, and diabetes. Medications and Allergies Home Medications Medication Instructions Recorded Confirmed Type Nitroglycerin Sl Tabs [Nitrostat] 0.4 mg SUBLINGUAL Q5M PRN 10/13/13 07/26/17 History metFORMIN HCL 1,000 mg PO AC-BID 07/03/15 07/26/17 History Dulaglutide [Trulicity] 1.5 mg SQ OROZCO 03/10/16 07/26/17 History Glimepiride 4 mg PO AC-BID 03/10/16 07/26/17 History Rosuvastatin Calcium 40 mg PO HS 05/05/16 07/26/17 History Ranolazine [Ranexa] 1,000 mg PO BID 06/09/16 07/26/17 History Primidone [Mysoline] 100 mg PO BID 06/30/16 07/26/17 History Cholecalciferol (Vitamin D3) 2,000 unit PO DAILY 11/07/16 07/26/17 History [Vitamin D3] Linagliptin [Tradjenta] 5 mg PO HS 12/19/16 07/26/17 History Sertraline HCl [Zoloft] 200 mg PO DAILY #28 01/27/17 07/26/17 Rx Albuterol Inhaler [Ventolin Hfa 2 puff INHALATION RT-Q4H PRN 02/14/17 07/26/17 History Inhaler] Gabapentin [Neurontin] 400 mg PO TID 02/24/17 07/26/17 History Metoprolol Tartrate [Lopressor] 75 mg PO BID 05/14/17 07/26/17 History Prasugrel [Effient] 10 mg PO HS 05/26/17 07/26/17 History Furosemide [Lasix] 40 mg PO DAILY 07/05/17 07/26/17 History Lisinopril [Zestril] 2.5 mg PO DAILY 07/05/17 07/26/17 History Ranitidine HCl [Zantac] 300 mg PO QAM 07/05/17 07/26/17 History Pantoprazole Sodium [Protonix] 40 mg PO BID #60 tablet. 07/07/17 07/26/17 Rx ARIPiprazole [Abilify] 15 mg PO DAILY 07/26/17 07/26/17 History Aspirin 81 mg PO DAILY 07/26/17 07/26/17 History Isosorbide Mononitrate ER [Imdur] 30 mg PO DAILY 07/26/17 07/26/17 History Allergies Allergy/AdvReac Type Severity Reaction Status Date / Time erythromycin base Allergy Severe Swelling Verified 07/26/17 21:44 [Erythromycin Base] codeine Allergy Unknown Swelling Verified 07/26/17 21:44 meclizine Allergy Unknown Unknown Verified 07/26/17 21:44 Penicillins Allergy Unknown Rash/Hives Verified 07/26/17 21:44 shellfish derived Allergy Unknown Anaphylaxis Verified 07/26/17 21:44 Fish Containing Products Allergy Anaphylaxis Verified 07/26/17 21:44 [Fish] Iodinated Contrast- Oral and Allergy Anaphylaxis Verified 07/26/17 21:44 IV Dye cephalexin monohydrate AdvReac Unknown Nausea & Verified 07/26/17 21:44 [From Keflex] Vomiting naproxen AdvReac Unknown Compromises Verified 07/26/17 21:44 Kidney Function atorvastatin calcium AdvReac Myalgia Verified 07/26/17 21:44 [From Lipitor] hydrocodone [From [place]] AdvReac Rapid Verified 07/26/17 21:44 Heart Rate Physical Exam Vitals: Vital Signs Temp Pulse Resp BP Pulse Ox 07/26/17 22:32 73 16 122/64 99 07/26/17 21:41 97.2 F L 88 16 122/77 97 Intake and Output 07/26/17 07/26/17 07/27/17 14:59 22:59 06:59 Other: Weight 113.398 kg Patient Weight 07/27/17 06:59 Weight 113.398 kg Constitutional: No acute distress, conversant, pleasant Eyes:Anicteric sclerae, moist conjunctiva, no lid-lag, PERRLA, ENMT: Oropharynx clear, no erythema, exudates Neck: Supple, FROM, no masses, or JVD, No carotid bruits, No thyromegaly Lungs: Clear to auscultation, Clear to percussion, Normal respiratory effort, no accessory muscle use Cardiovascular: Heart regular in rate and rhythm, No murmurs, gallops, or rubs, No peripheral edema Abdominal: Soft, Nontender, no guarding, rebound or rigidity, Normoactive bowel sounds, No hepatomegaly, No splenomegaly, No palpable mass Skin: Normal temperature, tone, texture, turgor, no induration, No subcutaneous nodules, No rash, lesions, No ulcers Extremities: No digital cyanosis, No clubbing, Pedal pulses intact and symmetrical, Radial pulses intact and symmetrical, No calf tenderness Psychiatric: Alert and oriented to person, place and time, appropriate affect, intact judgement Neuro: Muscles Strength 5/5 in all 4 extremities, Sensation to light touch grossly present throughout, Cranial nerves II-XII grossly intact, no focal sensory deficits Results CBC & Chem 7: 07/26/17 22:07 07/26/17 22:07 Labs: Abnormal Lab Results - Last 24 Hours (Table) 07/26/17 07/26/17 07/26/17 Range/Units 22:07 22:07 22:07 Hgb 11.5 L (13.0-17.5) gm/dL Hct 35.9 L (39.0-53.0) % APTT (22.0-30.0) sec Sodium 131 L (137-145) mmol/L Potassium 5.2 H (3.5-5.1) mmol/L Chloride 97 L (98-107) mmol/L BUN 21 H (9-20) mg/dL Glucose 507 H* (74-99) mg/dL AST 16 L (17-59) U/L Total Creatine Kinase 195 H (55-170) U/L CK-MB (CK-2) 3.1 H* (0.0-2.4) ng/mL Troponin I 0.234 H* (0.000-0.034) ng/mL Total Protein 5.7 L (6.3-8.2) g/dL Albumin 3.3 L (3.5-5.0) g/dL 07/26/17 Range/Units 22:07 Hgb (13.0-17.5) gm/dL Hct (39.0-53.0) % APTT 20.7 L (22.0-30.0) sec Sodium (137-145) mmol/L Potassium (3.5-5.1) mmol/L Chloride (98-107) mmol/L BUN (9-20) mg/dL Glucose (74-99) mg/dL AST (17-59) U/L Total Creatine Kinase (55-170) U/L CK-MB (CK-2) (0.0-2.4) ng/mL Troponin I (0.000-0.034) ng/mL Total Protein (6.3-8.2) g/dL Albumin (3.5-5.0) g/dL Assessment and Plan Plan: #1 Acute chest pain/rule out NSTEMI: Especially with history of coronary artery disease Labs and EKG reviewed Troponin above baseline Admit to inpatient on telemetry Consults cardio. Cycle troponins Aspirin and heparin gtts. Nitroglycerin, morphine as needed for pain #2 Type 2 diabetes with hyperglycemia: BS in the ER was 500 Hold oral hypoglycemics Sliding scale insulin with blood sugars check every before meals and at bedtime #3 Asthma, history of heart Failure, history of CVA/TIA, GERD/Reflux, Hyperlipidemia, benign Hypertension, Osteoarthritis (OA), Sleep Apnea/CPAP/BIPAP : All stable Continue all medications #4 DVT prophylaxis: On heparin
[2017-07-27] MEDS ORDERED: HEPARIN SODIUM,PORCINE 5,000 UNIT/ML 1 ML VIAL IV ONE (00:14)
[2017-07-27] MEDS ORDERED: HEPARIN SOD,PORK IN 0.45% NACL 25,000 UNIT in 0.45% NACL 1 500ML.BAG IV SCH (00:15)
[2017-07-27 02:45] VITALS: BMI 40.6
[2017-07-27] MEDS: NITROGLYCERIN OINT 1 INCH/GM PACKET TOPICAL SCH ×3 (03:53→12:13)
[2017-07-27 05:37] LABS: Basophils # (A) 0.1 k/uL (0-0.2); Basophils % (A) 1 %; Eosinophils # (A) 0.4 k/uL (0-0.7); Eosinophils % (A) 9 %; HCT 37.3 % (39.0-53.0); HGB 11.8 gm/dL (13.0-17.5); Hypochromasia Slight; Lymphocytes # (A) 1.8 k/uL (1.0-4.8); Lymphocytes % (A) 35 %; MCH 26.3 pg (25.0-35.0); MCHC 31.6 g/dL (31.0-37.0); MCV 83.5 fL (80.0-100.0); Mean Platelet Volume 7.1; Monocytes # (A) 0.2 k/uL (0-1.0); Monocytes % (A) 4 %; Neutrophils # (A) 2.5 k/uL (1.3-7.7); Neutrophils % (A) 48 %; Platelet Count 217 k/uL (150-450); RBC 4.46 m/uL (4.30-5.90); WBC 5.1 k/uL (3.8-10.6)
[2017-07-27] MEDS: HEPARIN SODIUM,PORCINE 5,000 UNIT/ML 1 ML VIAL IV PRN ×2 (05:56→12:42)
[2017-07-27 06:00] LABS: Anion Gap 9 mmol/L; Blood Urea Nitrogen 21 mg/dL (9-20); Calcium 9.6 mg/dL (8.4-10.2); Carbon Dioxide 23 mmol/L (22-30); Chloride 104 mmol/L (98-107); Cholesterol 119 mg/dL (<200); Glucose 322 mg/dL (74-99); HDL Cholesterol 41 mg/dL (40-60); LDL Cholesterol,Calculated 35 mg/dL (0-99); Magnesium 1.9 mg/dL (1.6-2.3); Phosphorus 5.3 mg/dL (2.5-4.5); Sodium 136 mmol/L (137-145); Triglycerides 216 mg/dL (<150)
[2017-07-27 06:03] LABS: Glucose,Whole Blood 292 mg/dL (75-99)
[2017-07-27 06:13] LABS: Troponin I 0.528 ng/mL (0.000-0.034)
[2017-07-27] MEDS: INSULIN ASPART 100 UNIT/ML 1 ML 10 ML VIAL SQ SCH ×2 (06:33→12:13)
[2017-07-27] MEDS ORDERED: PANTOPRAZOLE 40 MG TABLET PO SCH (09:00)
[2017-07-27] MEDS ORDERED: LISINOPRIL 2.5 MG TAB PO SCH (09:00)
[2017-07-27] MEDS ORDERED: SERTRALINE 100 MG TAB PO SCH (09:00)
[2017-07-27] MEDS ORDERED: METOPROLOL TARTRATE 25 MG TAB PO SCH (09:00)
[2017-07-27] MEDS ORDERED: CHOLECALCIFEROL 1,000 UNIT TAB PO SCH (09:00)
[2017-07-27] MEDS ORDERED: ASPIRIN 81 MG PO SCH (09:00)
[2017-07-27] MEDS ORDERED: PRIMIDONE 50 MG TAB PO SCH (09:00)
[2017-07-27] MEDS ORDERED: GABAPENTIN 400 MG CAP PO SCH (09:00)
[2017-07-27] MEDS ORDERED: ISOSORBIDE MONONITRATE ER 30 MG TAB.ER.24H PO SCH (09:00)
[2017-07-27] MEDS ORDERED: FUROSEMIDE 40 MG TAB PO SCH (09:00)
[2017-07-27] MEDS ORDERED: ARIPiprazole 15 MG TAB PO SCH (09:00)
[2017-07-27] MEDS ORDERED: RANOLAZINE 500 MG TAB.ER.12H PO SCH (09:00)
[2017-07-27] MEDS ORDERED: FAMOTIDINE 20 MG TAB PO SCH (09:00)
[2017-07-27] MEDS ORDERED: ASPIRIN 325 MG TAB PO SCH (09:00)
--- NOTE | 2017-07-27 09:36 | P.CRDCN ---
History of Present Illness History of present illness: 41-year-old male patient who comes in with burning discomfort in the chest, now lying comfortably in bed sleeping. Sounds are normal twelve-lead ECG shows a ventricular paced rhythm, biventricular paced. Blood sugars elevated, noncompliance with diabetes management. Abnormal chronic enzymes with a rising trend of 0.2 and then 0.5 potassium of 5.0. Blood pressure 121/70 mmHg normal heart sounds and on dual antiplatelet therapy beta blockers and rosuvastatin 40 mg daily along with Lasix. Patient follows with the [facility] Impression Likely non-Q-wave myocardial infarction Known coronary artery disease status post multiple stenting procedures in the coronary arteries in the past Uncontrolled diabetes, noncompliance with diabetic treatment which has been a recurrent theme for many years now BMI greater than 40 On appropriate drug treatment Cardio myopathy status post biventricular ICD implant at an outside institution Discussed with patient. Discussed with Dr. wolfe. 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 Patient is stable at this point for transfer See full dictation by Dr. wolfe Past Medical History Past Medical History: Asthma, Coronary Artery Disease (CAD), Chest Pain / Angina , Heart Failure, CVA/TIA, Diabetes Mellitus, GERD/Reflux, Hyperlipidemia, Hypertension, Myocardial Infarction (NM), Osteoarthritis (OA), Pneumonia, Skin Disorder, Sleep Apnea/CPAP/BIPAP Additional Past Medical History / Comment(s): multiple vessel CAD, ischemic cardiomyopathy, diabetic neuropathy bilateral hands and feet, hypertensive cardiovascular disease, SHELIA with no device, chronic gastritis, degenerative disc disease, chronic back pain, depression with hx of suicide attempts, gastroparesis, psoriasis, UTI, migraines, TIA, PUD, hiatal hernia, L rotator cuff tear, bronchitis, pseudoaneurysm L groin post procedure. 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 Date of Last Stent Placement:: 12/23/16 Type of Cardiac Device: Biventricular Pacemaker, AICD Device Placement Date:: 09/19/15 Past Psychological History: Anxiety, Depression, PTSD Additional Psychological History / Comment(s): Several suicide attempts with use of insulin. PTSD - in 2000 his 3mo old son in his arms (born 2 months premature). Pt states his depression is stable at this time and he denies any suicidal thoughts or plans. He is independent. Pt lives at home with his , mom and sister. Pt drives and he is indp at home. Smoking Status: Never smoker Past Alcohol Use History: None Reported Additional Past Alcohol Use History / Comment(s): Past alcohol abuse - pt states he quit drinking 7yrs ago. Past Drug Use History: None Reported Additional Drug Use History / Comment(s): Pt has smoked marijuana in the past - last smoked in 1999. - Past Family History Mother Family Medical History: Coronary Artery Disease (CAD), Myocardial Infarction (NM ) Additional Family Medical History / Comment(s): 7 NM and faulty heart valve. Pt does not know the age when mother had her NM's. Father History Unknown: Yes Additional Family Medical History / Comment(s): Does not know who father is. Brother(s) Family Medical History: Congestive Heart Failure (CHF), Myocardial Infarction ( NM) Additional Family Medical History / Comment(s): Parkinsons. Pt does not know at what age his brother had an NM. Patient has Family Medical History: No Reported History Additional Family Medical History / Comment(s): There is a strong family history for heart disease, hypertension, and diabetes. Medications and Allergies Home Medications Medication Instructions Recorded Confirmed Type Nitroglycerin Sl Tabs [Nitrostat] 0.4 mg SUBLINGUAL Q5M PRN 10/13/13 07/26/17 History metFORMIN HCL 1,000 mg PO AC-BID 07/03/15 07/26/17 History Dulaglutide [Trulicity] 1.5 mg SQ OROZCO 03/10/16 07/26/17 History Glimepiride 4 mg PO AC-BID 03/10/16 07/26/17 History Rosuvastatin Calcium 40 mg PO HS 05/05/16 07/26/17 History Ranolazine [Ranexa] 1,000 mg PO BID 06/09/16 07/26/17 History Primidone [Mysoline] 100 mg PO BID 06/30/16 07/26/17 History Cholecalciferol (Vitamin D3) 2,000 unit PO DAILY 11/07/16 07/26/17 History [Vitamin D3] Linagliptin [Tradjenta] 5 mg PO HS 12/19/16 07/26/17 History Sertraline HCl [Zoloft] 200 mg PO DAILY #28 01/27/17 07/26/17 Rx Albuterol Inhaler [Ventolin Hfa 2 puff INHALATION RT-Q4H PRN 02/14/17 07/26/17 History Inhaler] Gabapentin [Neurontin] 400 mg PO TID 02/24/17 07/26/17 History Metoprolol Tartrate [Lopressor] 75 mg PO BID 05/14/17 07/26/17 History Prasugrel [Effient] 10 mg PO HS 05/26/17 07/26/17 History Furosemide [Lasix] 40 mg PO DAILY 07/05/17 07/26/17 History Lisinopril [Zestril] 2.5 mg PO DAILY 07/05/17 07/26/17 History Ranitidine HCl [Zantac] 300 mg PO QA 07/05/17 07/26/17 History Pantoprazole Sodium [Protonix] 40 mg PO BID #60 tablet. 07/07/17 07/26/17 Rx ARIPiprazole [Abilify] 15 mg PO DAILY 07/26/17 07/26/17 History Aspirin 81 mg PO DAILY 07/26/17 07/26/17 History Isosorbide Mononitrate ER [Imdur] 30 mg PO DAILY 07/26/17 07/26/17 History Allergies Allergy/AdvReac Type Severity Reaction Status Date / Time erythromycin base Allergy Severe Swelling Verified 07/26/17 21:44 [Erythromycin Base] codeine Allergy Unknown Swelling Verified 07/26/17 21:44 meclizine Allergy Unknown Unknown Verified 07/26/17 21:44 Penicillins Allergy Unknown Rash/Hives Verified 03/04/18 21:44 shellfish derived Allergy Unknown Anaphylaxis Verified 07/26/17 21:44 Fish Containing Products Allergy Anaphylaxis Verified 07/26/17 21:44 [Fish] Iodinated Contrast- Oral and Allergy Anaphylaxis Verified 07/26/17 21:44 IV Dye cephalexin monohydrate AdvReac Unknown Nausea & Verified 07/26/17 21:44 [From Keflex] Vomiting naproxen AdvReac Unknown Compromises Verified 07/26/17 21:44 Kidney Function atorvastatin calcium AdvReac Myalgia Verified 07/26/17 21:44 [From Lipitor] hydrocodone [From [place]] AdvReac Rapid Verified 07/26/17 21:44 Heart Rate Physical Exam Vitals: Vital Signs Temp Pulse Pulse Resp BP BP Pulse Ox 07/27/17 04:00 97 F L 72 20 121/70 97 07/27/17 00:10 97.3 F L 76 20 109/61 96 07/26/17 22:32 73 16 122/64 99 07/26/17 21:41 97.2 F L 88 16 122/77 97 Intake and Output 07/26/17 07/27/17 07/27/17 22:59 06:59 14:59 Intake Total 322.667 Balance 322.667 Intake: IV 100 0.9 KVO 100 Intake, IV Titration 202.667 Amount Heparin Sod,Pork in 0.45% 202.667 NaCl 25,000 unit In 0.45 % NaCl 1 500ml.bag @ 8.83 UNITS/KG/HR 20.02 mls/hr IV .Q24H [facility] Rx#: [id number] Oral 20 Other: Voiding Method Toilet # Voids 1 Weight 113.398 kg 114.4 kg Results 07/27/17 05:25 07/27/17 05:25 Cardiac Enzymes 07/26/17 07/26/17 07/27/17 Range/Units 22:07 22:07 05:25 AST 16 L (17-59) U/L CK-MB (CK-2) 3.1 H* 4.0 H* (0.0-2.4) ng/mL Troponin I 0.234 H* 0.528 H* (0.000-0.034) ng/mL Coagulation 07/26/17 07/27/17 Range/Units 22:07 05:25 PT 9.8 (9.0-12.0) sec APTT 20.7 L 26.1 (22.0-30.0) sec Lipids 07/27/17 Range/Units 05:25 Triglycerides 216 H (<150) mg/dL Cholesterol 119 (<200) mg/dL HDL Cholesterol 41 (40-60) mg/dL CBC 07/26/17 07/27/17 Range/Units 22:07 05:25 WBC 5.7 5.1 (3.8-10.6) k/uL RBC 4.43 4.46 (4.30-5.90) m/uL Hgb 11.5 L 11.8 L (13.0-17.5) gm/dL Hct 35.9 L 37.3 L (39.0-53.0) % Plt Count 224 217 (150-450) k/uL Comprehensive Metabolic Panel 07/26/17 07/27/17 Range/Units 22:07 05:25 Sodium 131 L 136 L (137-145) mmol/L Potassium 5.2 H 5.0 (3.5-5.1) mmol/L Chloride 97 L 104 (98-107) mmol/L Carbon Dioxide 25 23 (22-30) mmol/L BUN 21 H 21 H (9-20) mg/dL Creatinine 1.00 0.91 (0.66-1.25) mg/dL Glucose 507 H* 322 H (74-99) mg/dL Calcium 9.4 9.6 (8.4-10.2) mg/dL AST 16 L (17-59) U/L ALT 24 (21-72) U/L Alkaline Phosphatase 120 (38-126) U/L Total Protein 5.7 L (6.3-8.2) g/dL Albumin 3.3 L (3.5-5.0) g/dL Current Medications Generic Name Dose Route Start Last Admin Trade Name Freq PRN Reason Stop Dose Admin Acetaminophen 650 mg 07/26/17 23:29 Tylenol Tab PO Q6HR PRN Mild Pain or Fever > 100.5 Albuterol Sulfate 2.5 mg 07/26/17 23:32 Ventolin Nebulized INHALATION RT-Q4H PRN Shortness Of Breath Aripiprazole 15 mg 07/27/17 09:00 Abilify PO DAILY [facility] Aspirin 81 mg 07/27/17 09:00 Aspirin PO DAILY [facility] Atorvastatin Calcium 80 mg 07/27/17 21:00 Lipitor PO HS [facility] Cholecalciferol 2,000 unit 07/27/17 09:00 Vitamin D3 PO DAILY [facility] Famotidine 40 mg 07/27/17 09:00 Pepcid PO QAM [facility] Furosemide 40 mg 07/27/17 09:00 Lasix PO DAILY [facility] Gabapentin 400 mg 07/27/17 09:00 Neurontin PO TID [facility] Heparin Sodium (Porcine) 0 unit 07/27/17 00:14 07/27/17 05:56 Heparin IV 4,000 unit PER PROTOCOL PRN Administration Low PTT Protocol Heparin Sodium/Sodium Chloride 500 mls @ 20.02 mls/hr 07/27/17 00:15 05:56 25,000 unit/ Sodium Chloride IV 12 units/kg/hr .Q24H [facility] 27.21 mls/hr Protocol Titration 8.83 UNITS/KG/HR Insulin Aspart 0 unit 07/27/17 07:30 07/27/17 06:33 Novolog SQ 7 unit ACHS [facility] Administration Protocol Insulin Detemir 10 unit 07/26/17 23:45 07/27/17 03:53 Levemir SQ 10 unit HS [facility] Administration Isosorbide Mononitrate 30 mg 07/27/17 09:00 Imdur PO DAILY [facility] Lisinopril 2.5 mg 07/27/17 09:00 Zestril PO DAILY [facility] Metoprolol Tartrate 75 mg 07/27/17 09:00 Lopressor PO BID [facility] Morphine Sulfate 2 mg 07/26/17 23:29 Morphine Sulfate (Inj) IV Q4HR PRN Severe Pain Nitroglycerin 1 inch 07/27/17 00:00 07/27/17 05:49 Nitro-Bid Oint TOPICAL Not Given Q6HR [facility] Nitroglycerin 0.4 mg 07/26/17 23:15 Nitrostat SUBLINGUAL Q5M PRN Chest Pain Nitroglycerin 0.4 mg 07/26/17 23:32 Nitrostat SUBLINGUAL Q5M PRN Chest Pain Pantoprazole Sodium 40 mg 07/27/17 09:00 Protonix PO BID [facility] Prasugrel 10 mg 07/27/17 21:00 Effient PO HS [facility] Primidone 100 mg 07/27/17 09:00 Mysoline PO BID [facility] Ranolazine 1,000 mg 07/27/17 09:00 Ranexa PO BID [facility] Sertraline HCl 200 mg 07/27/17 09:00 Zoloft PO DAILY [facility] Intake and Output 07/26/17 07/27/17 07/27/17 22:59 06:59 14:59 Intake Total 322.667 Balance 322.667 Intake: IV 100 0.9 KVO 100 Intake, IV Titration 202.667 Amount Heparin Sod,Pork in 0.45% 202.667 NaCl 25,000 unit In 0.45 % NaCl 1 500ml.bag @ 8.83 UNITS/KG/HR 20.02 mls/hr IV .Q24H [facility] Rx#: [id number] Oral 20 Other: Voiding Method Toilet # Voids 1 Weight 113.398 kg 114.4 kg 07/27/17 05:25 07/27/17 05:25
--- NOTE | 2017-07-27 10:19 | P.CRDCN ---
History of Present Illness Consult date: 07/27/17 Requesting physician: David Wellington Consult reason: chest pain Chief complaint: Chest pain History of present illness: This is a 41-year-old gentleman with known history of coronary artery disease and multiple stent placements. History of severe ischemic cardiomyopathy with prior AICD, hypertension, diabetes, hyperlipidemia, sleep apnea, prior TIA, GERD. 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 He presents to the hospital on this occasion with symptoms of midsternal chest burning, according to the patient he had 3 separate episodes , first 2 times nitro gave him relief, when he experienced again a third time he became concerned and came to the emergency room for further evaluation. EKG on arrival here shows an atrial sensed V paced rhythm. Chest x-ray normal. Blood pressure 120/70, heart rate in the 70s, 97% on room air. White blood cell count normal, hemoglobin 11.8, platelet count 217. Sodium 136, potassium 5.0, BUN 21, creatinine 0.9. Blood glucose on arrival 507, 322 this morning. Magnesium level on arrival 1.6, 1.9 this morning. Troponins 0.23, 0.52. BNP level 1660. Patient was initiated on IV heparin. He was seen in consultation this morning by Dr. Salomon and advised to be transferred to [facility] to undergo angiogram. Past Medical History Past Medical History: Asthma, Coronary Artery Disease (CAD), Chest Pain / Angina , Heart Failure, CVA/TIA, Diabetes Mellitus, GERD/Reflux, Hyperlipidemia, Hypertension, Myocardial Infarction (TX), Osteoarthritis (OA), Pneumonia, Skin Disorder, Sleep Apnea/CPAP/BIPAP Additional Past Medical History / Comment(s): multiple vessel CAD, ischemic cardiomyopathy, diabetic neuropathy bilateral hands and feet, hypertensive cardiovascular disease, SHELIA with no device, chronic gastritis, degenerative disc disease, chronic back pain, depression with hx of suicide attempts, gastroparesis, psoriasis, UTI, migraines, TIA, PUD, hiatal hernia, L rotator cuff tear, bronchitis, pseudoaneurysm L groin post procedure. Last Myocardial Infarction Date:: December 2016 History of Any Multi-Drug Resistant Organisms: MRSA Date of last positivie culture/infection: 06/09/16 MDRO Source:: face Past Surgical History: AICD, Appendectomy, Cholecystectomy, Heart Catheterization With Stent, Hernia Repair Additional Past Surgical History / Comment(s): Pt has had multiple cardiac procedures- caths/stents/PTCA, last stent placed at [facility] - December 2016 , SAVAN[place]H, R inguinal hernia repair, umbilical hernia repair, right orchiectomy due to necrosis, right hand surgery r/t injury, colonoscopy, cystoscopy (scraped bladder parrish) Past Anesthesia/Blood Transfusion Reactions: No Reported Reaction Additional Past Anesthesia/Blood Transfusion Reaction / Comment(s): . Date of Last Stent Placement:: 12/23/16 Type of Cardiac Device: Biventricular Pacemaker, AICD Device Placement Date:: 09/19/15 Past Psychological History: Anxiety, Depression, PTSD Additional Psychological History / Comment(s): Several suicide attempts with use of insulin. PTSD - in 2000 his 3mo old son in his arms (born 2 months premature). Pt states his depression is stable at this time and he denies any suicidal thoughts or plans. He is independent. Pt lives at home with his , mom and sister. Pt drives and he is indp at home. Smoking Status: Never smoker Past Alcohol Use History: None Reported Additional Past Alcohol Use History / Comment(s): Past alcohol abuse - pt states he quit drinking 7yrs ago. Past Drug Use History: None Reported Additional Drug Use History / Comment(s): Pt has smoked marijuana in the past - last smoked in 1999. - Past Family History Mother Family Medical History: Coronary Artery Disease (CAD), Myocardial Infarction (TX ) Additional Family Medical History / Comment(s): 7 TX and faulty heart valve. Pt does not know the age when mother had her TX's. Father History Unknown: Yes Additional Family Medical History / Comment(s): Does not know who father is. Brother(s) Family Medical History: Congestive Heart Failure (CHF), Myocardial Infarction ( TX) Additional Family Medical History / Comment(s): Parkinsons. Pt does not know at what age his brother had an TX. Patient has Family Medical History: No Reported History Additional Family Medical History / Comment(s): There is a strong family history for heart disease, hypertension, and diabetes. Medications and Allergies Home Medications Medication Instructions Recorded Confirmed Type Nitroglycerin Sl Tabs [Nitrostat] 0.4 mg SUBLINGUAL Q5M PRN 10/13/13 07/26/17 History metFORMIN HCL 1,000 mg PO AC-BID 07/03/15 07/26/17 History Dulaglutide [Trulicity] 1.5 mg SQ OROZCO 03/10/16 07/26/17 History Glimepiride 4 mg PO AC-BID 03/10/16 07/26/17 History Rosuvastatin Calcium 40 mg PO HS 05/05/16 07/26/17 History Ranolazine [Ranexa] 1,000 mg PO BID 06/09/16 07/26/17 History Primidone [Mysoline] 100 mg PO BID 06/30/16 07/26/17 History Cholecalciferol (Vitamin D3) 2,000 unit PO DAILY 11/07/16 07/26/17 History [Vitamin D3] Linagliptin [Tradjenta] 5 mg PO HS 12/19/16 07/26/17 History Sertraline HCl [Zoloft] 200 mg PO DAILY #28 01/27/17 07/26/17 Rx Albuterol Inhaler [Ventolin Hfa 2 puff INHALATION RT-Q4H PRN 02/14/17 07/26/17 History Inhaler] Gabapentin [Neurontin] 400 mg PO TID 02/24/17 07/26/17 History Metoprolol Tartrate [Lopressor] 75 mg PO BID 05/14/17 07/26/17 History Prasugrel [Effient] 10 mg PO HS 05/26/17 07/26/17 History Furosemide [Lasix] 40 mg PO DAILY 07/05/17 07/26/17 History Lisinopril [Zestril] 2.5 mg PO DAILY 07/05/17 07/26/17 History Ranitidine HCl [Zantac] 300 mg PO QAM 07/05/17 07/26/17 History Pantoprazole Sodium [Protonix] 40 mg PO BID #60 tablet. 07/07/17 07/26/17 Rx ARIPiprazole [Abilify] 15 mg PO DAILY 07/26/17 07/26/17 History Aspirin 81 mg PO DAILY 07/26/17 07/26/17 History Isosorbide Mononitrate ER [Imdur] 30 mg PO DAILY 07/26/17 07/26/17 History Allergies Allergy/AdvReac Type Severity Reaction Status Date / Time erythromycin base Allergy Severe Swelling Verified 07/26/17 21:44 [Erythromycin Base] codeine Allergy Unknown Swelling Verified 07/26/17 21:44 meclizine Allergy Unknown Unknown Verified 07/26/17 21:44 Penicillins Allergy Unknown Rash/Hives Verified 07/26/17 21:44 shellfish derived Allergy Unknown Anaphylaxis Verified 07/26/17 21:44 Fish Containing Products Allergy Anaphylaxis Verified 07/26/17 21:44 [Fish] Iodinated Contrast- Oral and Allergy Anaphylaxis Verified 07/26/17 21:44 IV Dye cephalexin monohydrate AdvReac Unknown Nausea & Verified 07/26/17 21:44 [From Keflex] Vomiting naproxen AdvReac Unknown Compromises Verified 07/26/17 21:44 Kidney Function atorvastatin calcium AdvReac Myalgia Verified 07/26/17 21:44 [From Lipitor] hydrocodone [From Edmondson] AdvReac Rapid Verified 07/26/17 21:44 Heart Rate Physical Exam Vitals: Vital Signs Temp Pulse Pulse Resp BP BP Pulse Ox 07/27/17 04:00 97 F L 72 20 121/70 97 07/27/17 00:10 97.3 F L 76 20 109/61 96 07/26/17 22:32 73 16 122/64 99 07/26/17 21:41 97.2 F L 88 16 122/77 97 Intake and Output 07/26/17 07/27/17 07/27/17 22:59 06:59 14:59 Intake Total 322.667 Balance 322.667 Intake: IV 100 0.9 KVO 100 Intake, IV Titration 202.667 Amount Heparin Sod,Pork in 0.45% 202.667 NaCl 25,000 unit In 0.45 % NaCl 1 500ml.bag @ 8.83 UNITS/KG/HR 20.02 mls/hr IV .Q24H JAKE Rx#: [id number] Oral 20 Other: Voiding Method Toilet # Voids 1 Weight 113.398 kg 114.4 kg PHYSICAL EXAMINATION: HEENT: Head is atraumatic, normocephalic. Pupils equal, round. Neck is supple. There is no elevated jugular venous pressure. HEART EXAMINATION: Heart S1, S2 normal. No murmur or gallop heard. CHEST EXAMINATION: Lungs are clear to auscultation and precussion. No chest wall tenderness is noted on palpation or with deep breathing. ABDOMEN: Soft, nontender. Bowel sounds are heard. No organomegaly noted. EXTREMITIES: 2+ peripheral pulses with no evidence of peripheral edema and no calf tenderness noted. NEUROLOGIC patient is awake, alert and oriented -3. . Results 07/27/17 05:25 07/27/17 05:25 Cardiac Enzymes 07/26/17 07/26/17 07/27/17 Range/Units 22:07 22:07 05:25 AST 16 L (17-59) U/L CK-MB (CK-2) 3.1 H* 4.0 H* (0.0-2.4) ng/mL Troponin I 0.234 H* 0.528 H* (0.000-0.034) ng/mL Coagulation 07/26/17 07/27/17 Range/Units 22:07 05:25 PT 9.8 (9.0-12.0) sec APTT 20.7 L 26.1 (22.0-30.0) sec Lipids 07/27/17 Range/Units 05:25 Triglycerides 216 H (<150) mg/dL Cholesterol 119 (<200) mg/dL HDL Cholesterol 41 (40-60) mg/dL CBC 07/26/17 07/27/17 Range/Units 22:07 05:25 WBC 5.7 5.1 (3.8-10.6) k/uL RBC 4.43 4.46 (4.30-5.90) m/uL Hgb 11.5 L 11.8 L (13.0-17.5) gm/dL Hct 35.9 L 37.3 L (39.0-53.0) % Plt Count 224 217 (150-450) k/uL Comprehensive Metabolic Panel 07/26/17 07/27/17 Range/Units 22:07 05:25 Sodium 131 L 136 L (137-145) mmol/L Potassium 5.2 H 5.0 (3.5-5.1) mmol/L Chloride 97 L 104 (98-107) mmol/L Carbon Dioxide 25 23 (22-30) mmol/L BUN 21 H 21 H (9-20) mg/dL Creatinine 1.00 0.91 (0.66-1.25) mg/dL Glucose 507 H* 322 H (74-99) mg/dL Calcium 9.4 9.6 (8.4-10.2) mg/dL AST 16 L (17-59) U/L ALT 24 (21-72) U/L Alkaline Phosphatase 120 (38-126) U/L Total Protein 5.7 L (6.3-8.2) g/dL Albumin 3.3 L (3.5-5.0) g/dL Current Medications Generic Name Dose Route Start Last Admin Trade Name Bashirq PRN Reason Stop Dose Admin Acetaminophen 650 mg 07/26/17 23:29 Tylenol Tab PO Q6HR PRN Mild Pain or Fever > 100.5 Albuterol Sulfate 2.5 mg 07/26/17 23:32 Ventolin Nebulized INHALATION RT-Q4H PRN Shortness Of Breath Aripiprazole 15 mg 07/27/17 09:00 07/27/17 09:37 Abilify PO 15 mg DAILY JAKE Administration Aspirin 81 mg 07/27/17 09:00 07/27/17 09:38 Aspirin PO 81 mg DAILY JAKE Administration Atorvastatin Calcium 80 mg 07/27/17 21:00 Lipitor PO HS JAKE Cholecalciferol 2,000 unit 07/27/17 09:00 07/27/17 09:37 Vitamin D3 PO 2,000 unit DAILY JAKE Administration Famotidine 40 mg 07/27/17 09:00 07/27/17 09:37 Pepcid PO 40 mg QAM JAKE Administration Furosemide 40 mg 07/27/17 09:00 07/27/17 09:38 Lasix PO 40 mg DAILY JAKE Administration Gabapentin 400 mg 07/27/17 09:00 07/27/17 09:37 Neurontin PO 400 mg TID JAKE Administration Heparin Sodium (Porcine) 0 unit 07/27/17 00:14 07/27/17 05:56 Heparin IV 4,000 unit PER PROTOCOL PRN Administration Low PTT Protocol Heparin Sodium/Sodium Chloride 500 mls @ 20.02 mls/hr 07/27/17 00:15 05:56 25,000 unit/ Sodium Chloride IV 12 units/kg/hr .Q24H JAKE 27.21 mls/hr Protocol Titration 8.83 UNITS/KG/HR Insulin Aspart 0 unit 07/27/17 07:30 07/27/17 06:33 Novolog SQ 7 unit ACHS JAKE Administration Protocol Insulin Detemir 10 unit 07/26/17 23:45 07/27/17 03:53 Levemir SQ 10 unit HS [facility] Administration Isosorbide Mononitrate 30 mg 07/27/17 09:00 07/27/17 09:38 Imdur PO 30 mg DAILY [facility] Administration Lisinopril 2.5 mg 07/27/17 09:00 07/27/17 09:37 Zestril PO 2.5 mg DAILY [facility] Administration Metoprolol Tartrate 75 mg 07/27/17 09:00 07/27/17 09:37 Lopressor PO 75 mg BID [facility] Administration Morphine Sulfate 2 mg 07/26/17 23:29 Morphine Sulfate (Inj) IV Q4HR PRN Severe Pain Nitroglycerin 1 inch 07/27/17 00:00 07/27/17 05:49 Nitro-Bid Oint TOPICAL Not Given Q6HR [facility] Nitroglycerin 0.4 mg 07/26/17 23:15 Nitrostat SUBLINGUAL Q5M PRN Chest Pain Nitroglycerin 0.4 mg 07/26/17 23:32 Nitrostat SUBLINGUAL Q5M PRN Chest Pain Pantoprazole Sodium 40 mg 07/27/17 09:00 07/27/17 09:37 Protonix PO 40 mg BID [facility] Administration Prasugrel 10 mg 07/27/17 21:00 Effient PO HS [facility] Primidone 100 mg 07/27/17 09:00 07/27/17 09:37 Mysoline PO 100 mg BID [facility] Administration Ranolazine 1,000 mg 07/27/17 09:00 07/27/17 09:37 Ranexa PO 1,000 mg BID [facility] Administration Sertraline HCl 200 mg 07/27/17 09:00 07/27/17 09:37 Zoloft PO 200 mg DAILY [facility] Administration Intake and Output 07/26/17 07/27/17 07/27/17 22:59 06:59 14:59 Intake Total 322.667 Balance 322.667 Intake: IV 100 0.9 KVO 100 Intake, IV Titration 202.667 Amount Heparin Sod,Pork in 0.45% 202.667 NaCl 25,000 unit In 0.45 % NaCl 1 500ml.bag @ 8.83 UNITS/KG/HR 20.02 mls/hr IV .Q24H [facility] Rx#: [id number] Oral 20 Other: Voiding Method Toilet # Voids 1 Weight 113.398 kg 114.4 kg 07/27/17 05:25 07/27/17 05:25 EKG Interpretations (text) EKG shows an atrial sensed V paced rhythm. Assessment and Plan Plan: Assessment and plan #1 non-Q-wave myocardial infarction #2 known history of coronary artery disease with prior multiple stent placements #3 diabetes, uncontrolled #4 ischemic cardio myopathy with prior AICD implant #5 hypomagnesemia #6 hypertension #7 hyperlipidemia #8 prior TIA #9 GERD #10 sleep apnea Plan We will continue the patient on his IV heparin. 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 The risks and benefits again were explained to the patient. Arrangements are being made for transfer. DNP note has been reviewed, I agree with a documented findings and plan of care. Patient was seen and examined.
[2017-07-27 10:24] VITALS: RESP 18
--- NOTE | 2017-07-27 11:22 | P.DS ---
Providers Date of admission: 07/26/17 23:16 Expected date of discharge: 07/27/17 Attending physician: David Wellington MD Consults: 07/26/17 23:16 Consult Physician Urgent Consulting Provider: [facility] Consult Reason/Comments: Unstable angina Do you want consulting provider notified?: Yes Primary care physician: Junie New - Discharge Diagnosis(es) (1) Non Q wave myocardial infarction Current Visit: Yes Status: Acute (2) AICD (automatic cardioverter/defibrillator) present Current Visit: No Status: Acute (3) Cardiomyopathy Current Visit: No Status: Acute (4) Unstable angina Current Visit: No Status: Acute (5) HTN (hypertension) Current Visit: No Status: Acute Hospital Course: This is a 41-year-old gentleman with known history of coronary artery disease and multiple stent placements. History of severe ischemic cardiomyopathy with prior AICD, hypertension, diabetes, hyperlipidemia, sleep apnea, prior TIA, GERD. He presented with atypical symptoms of mid chest burning, with elevation of his cardiac enzymes .234 trending up to .528. EKG review was suggestive of a non-Q wave [place], he was started on antiplatelet therapy with aspirin and anticoagulation with heparin drip, along with beta ravinder and statin therapy. The patient was seen by cardiology Dr. Kang who recommended that the patient be transferred to [place] under the care of his primary supervisor diagnostic Dr. Peres. He was subsequently transferred there in stable condition. This discharge process took approximately 35 minutes Patient Condition at Discharge: Fair Plan - Discharge Summary Discharge Rx Participant: No New Discharge Prescriptions: New Acetaminophen Tab [Tylenol] 650 mg PO Q6HR PRN tab PRN Reason: Mild Pain Or Fever > 100.5 Albuterol Nebulized [Ventolin Nebulized] 2.5 mg INHALATION RT-Q4H PRN nebu PRN Reason: Shortness Of Breath ARIPiprazole [Abilify] 15 mg PO DAILY tab Aspirin 81 mg PO DAILY chew Atorvastatin [Lipitor] 80 mg PO HS tab Famotidine [Pepcid] 40 mg PO QAM tab Furosemide [Lasix] 40 mg PO DAILY tab Gabapentin [Neurontin] 400 mg PO TID cap Heparin Sodium,Porcine [Heparin Sodium] 0 unit IV PER PROTOCOL PRN vial PRN Reason: Low Ptt Isosorbide Mononitrate ER [Imdur] 30 mg PO DAILY tab.er.24h Lisinopril [Zestril] 2.5 mg PO DAILY tab Metoprolol Tartrate [Lopressor] 75 mg PO BID tab Nitroglycerin Sl Tabs [Nitrostat] 0.4 mg SUBLINGUAL Q5M PRN tab PRN Reason: Chest Pain Nitroglycerin Sl Tabs [Nitrostat] 0.4 mg SUBLINGUAL Q5M PRN tab PRN Reason: Chest Pain Pantoprazole [Protonix] 40 mg PO BID tablet. Prasugrel [Effient] 10 mg PO HS tab Primidone [Mysoline] 100 mg PO BID tab Ranolazine [Ranexa] 1,000 mg PO BID tab.er.12h Sertraline [Zoloft] 200 mg PO DAILY tab Continue metFORMIN HCL 1,000 mg PO AC-BID Glimepiride 4 mg PO AC-BID Dulaglutide [Trulicity] 1.5 mg SQ OROZCO Cholecalciferol (Vitamin D3) [Vitamin D3] 2,000 unit PO DAILY Linagliptin [Tradjenta] 5 mg PO HS Discontinued Nitroglycerin Sl Tabs [Nitrostat] 0.4 mg SUBLINGUAL Q5M PRN PRN Reason: Chest Pain Rosuvastatin Calcium 40 mg PO HS Ranolazine [Ranexa] 1,000 mg PO BID Primidone [Mysoline] 100 mg PO BID Sertraline HCl [Zoloft] 200 mg PO DAILY #28 Albuterol Inhaler [Ventolin Hfa Inhaler] 2 puff INHALATION RT-Q4H PRN PRN Reason: Shortness Of Breath Gabapentin [Neurontin] 400 mg PO TID Metoprolol Tartrate [Lopressor] 75 mg PO BID Prasugrel [Effient] 10 mg PO HS Ranitidine HCl [Zantac] 300 mg PO QAM Lisinopril [Zestril] 2.5 mg PO DAILY Furosemide [Lasix] 40 mg PO DAILY Pantoprazole Sodium [Protonix] 40 mg PO BID #60 tablet. ARIPiprazole [Abilify] 15 mg PO DAILY Isosorbide Mononitrate ER [Imdur] 30 mg PO DAILY Aspirin 81 mg PO DAILY Discharge Medication List metFORMIN HCL 1,000 mg PO AC-BID 07/03/15 [History] Dulaglutide [Trulicity] 1.5 mg SQ OROZCO 10/17/16 [History] Glimepiride 4 mg PO AC-BID 03/10/16 [History] Cholecalciferol (Vitamin D3) [Vitamin D3] 2,000 unit PO DAILY 11/07/16 [History] Linagliptin [Tradjenta] 5 mg PO HS 12/19/16 [History] ARIPiprazole [Abilify] 15 mg PO DAILY tab 07/27/17 [Rx] Acetaminophen Tab [Tylenol] 650 mg PO Q6HR PRN tab 07/27/17 [Rx] Albuterol Nebulized [Ventolin Nebulized] 2.5 mg INHALATION RT-Q4H PRN nebu 10/09 [Rx] Aspirin 81 mg PO DAILY chew 07/27/17 [Rx] Atorvastatin [Lipitor] 80 mg PO HS tab 07/27/17 [Rx] Famotidine [Pepcid] 40 mg PO QAM tab 07/27/17 [Rx] Furosemide [Lasix] 40 mg PO DAILY tab 07/27/17 [Rx] Gabapentin [Neurontin] 400 mg PO TID cap 07/27/17 [Rx] Heparin Sodium,Porcine [Heparin Sodium] 0 unit IV PER PROTOCOL PRN vial [Rx] Isosorbide Mononitrate ER [Imdur] 30 mg PO DAILY tab.er.24h 07/27/17 [Rx] Lisinopril [Zestril] 2.5 mg PO DAILY tab 07/27/17 [Rx] Metoprolol Tartrate [Lopressor] 75 mg PO BID tab 07/27/17 [Rx] Nitroglycerin Sl Tabs [Nitrostat] 0.4 mg SUBLINGUAL Q5M PRN tab 07/27/17 [Rx] Nitroglycerin Sl Tabs [Nitrostat] 0.4 mg SUBLINGUAL Q5M PRN tab 07/27/17 [Rx] Pantoprazole [Protonix] 40 mg PO BID tablet. 07/27/17 [Rx] Prasugrel [Effient] 10 mg PO HS tab 07/27/17 [Rx] Primidone [Mysoline] 100 mg PO BID tab 07/27/17 [Rx] Ranolazine [Ranexa] 1,000 mg PO BID tab.er.12h 07/27/17 [Rx] Sertraline [Zoloft] 200 mg PO DAILY tab 07/27/17 [Rx] Follow up Appointment(s)/Referral(s): Junie New MD [Primary Care Provider] - 1-2 days
[2017-07-27 11:27] LABS: Glucose,Whole Blood 260 mg/dL (75-99)
[2017-07-27 12:15] LABS: Troponin I 0.452 ng/mL (0.000-0.034)
[2017-07-27 13:01] VITALS: BP 109/69; PULSE 66; TEMP 96.7
[2017-07-27] MEDS ORDERED: MORPHINE ORAL SOLN 10 MG/5 ML CUP PO PRN (14:54)
[2017-07-27] MEDS ORDERED: PRASUGREL 10 MG TAB PO SCH (21:00)
[2017-07-27] MEDS ORDERED: ATORVASTATIN 80 MG TAB PO SCH (21:00)
--- NOTE | 2017-08-03 11:04 | CDI ---
Last Revision, April 2017 Documentation Clarification Form Date: 08/03/2017 From: [place] Douglass; Sabrina Deshaun Hurst Nicole Admit Date: 07/26/2017 11:16:00 PM Patient Name: Ti Dunham Visit Number: [id number] Discharge Date: 07/27/2017 ATTENTION: The Clinical Documentation Specialists (CDI) and [facility] Coding Staff appreciate your assistance in clarifying documentation. Please respond to the clarification below the line at the bottom and electronically sign. The CDI & [facility] Coding staff will review the response and follow-up if needed. Please note: Queries are made part of the Legal Health Record. If you have any questions, please contact the author of this message via ITS. Dr. Franky Arndt History/Risk Factors:. Presented with chest pain and ruled in for Non Q-wave IA. Patient has severe ischemic cardiomyopathy with documented CHF. BNP: 1660 Treatment: Lasix 40 mg PO daily. In your professional opinion, can you please clarify the acuity and type of CHF if known? Chronic Systolic Heart Failure Please document in your D/C Summary in order to capture the severity of illness and risk of mortality. MTDD
== END 2017-07-27 15:13 | disposition short-term general hospital (02) | DRG 281 ==
LOC: EC 21:39 → 6SEL 23:16
PROVIDERS: ADMIT Internal Medicine; ATTEND Internal Medicine
DX: I21.4 Non-ST elevation (NSTEMI) myocardial infarction (principal); I50.32 Chronic diastolic (congestive) heart failure; E11.65 Type 2 diabetes mellitus with hyperglycemia; K31.84 Gastroparesis; I11.0 Hypertensive heart disease with heart failure; E83.42 Hypomagnesemia; E11.43 Type 2 diabetes mellitus with diabetic autonomic (poly)neuropathy; E78.5 Hyperlipidemia, unspecified; F32.9 Major depressive disorder, single episode, unspecified; F43.10 Post-traumatic stress disorder, unspecified; Z91.5 Personal history of self-harm; G47.33 Obstructive sleep apnea (adult) (pediatric); I25.110 Atherosclerotic heart disease of native coronary artery with unstable angina pectoris; I25.2 Old myocardial infarction; I25.5 Ischemic cardiomyopathy; J45.909 Unspecified asthma, uncomplicated; K21.0 Gastro-esophageal reflux disease with esophagitis; Z79.82 Long term (current) use of aspirin; Z79.84 Long term (current) use of oral hypoglycemic drugs; Z79.899 Other long term (current) drug therapy; Z82.0 Family history of epilepsy and other diseases of the nervous system; Z82.49 Family history of ischemic heart disease and other diseases of the circulatory system; Z83.3 Family history of diabetes mellitus; Z86.73 Personal history of transient ischemic attack (TIA), and cerebral infarction without residual deficits; Z91.19 Patient's noncompliance with other medical treatment and regimen; Z95.810 Presence of automatic (implantable) cardiac defibrillator; Z95.5 Presence of coronary angioplasty implant and graft; Z88.5 Allergy status to narcotic agent; Z88.0 Allergy status to penicillin; Z88.1 Allergy status to other antibiotic agents; Z91.041 Radiographic dye allergy status; Z91.013 Allergy to seafood; G89.29 Other chronic pain
CPT/HCPCS: 36415; 71046; 80048; 80053; 80061; 82009; 82550; 82553; 83735; 83880; 84100; 84484; 85025; 85610; 85730; 93005; 96365; 96376; 99291

== ENCOUNTER → 2017-09-07 | Outpatient (CLI) | payer MEDICARE, OTHER ==
[2017-09-07 09:35] LABS: HGB 13.6 gm/dL (13.0-17.5); Hypochromasia Slight; MCH 26.1 pg (25.0-35.0); MCHC 33.1 g/dL (31.0-37.0); MCV 78.9 fL (80.0-100.0); Mean Platelet Volume 7.3; Platelet Count 254 k/uL (150-450); RDW 14.8 % (11.5-15.5); WBC 6.4 k/uL (3.8-10.6)
[2017-09-07 09:58] LABS: Anion Gap 12 mmol/L; Blood Urea Nitrogen 21 mg/dL (9-20); Carbon Dioxide 21 mmol/L (22-30); Chloride 98 mmol/L (98-107); Potassium 4.4 mmol/L (3.5-5.1); Sodium 131 mmol/L (137-145)
== END | disposition home or self-care (01) ==
LOC: LABWHC1 08:44
PROVIDERS: ATTEND Internal Medicine Cardiovascular Disease
DX: I12.9 Hypertensive chronic kidney disease with stage 1 through stage 4 chronic kidney disease, or unspecified chronic kidney disease (principal); N18.9 Chronic kidney disease, unspecified
CPT/HCPCS: 36415; 80051; 82565; 84520; 85027

== ENCOUNTER 2017-09-09 03:00 | Emergency (ER) | payer MEDICARE, OTHER ==
[2017-09-09] MEDS ORDERED: INSULIN REGULAR 100 UNIT/ML VIAL ONE (04:00)
[2017-09-09] MEDS ORDERED: MAG HYDROX/AL HYDROX/SIMETH 30 ML CUP ONE (04:00)
[2017-09-09] MEDS ORDERED: CIMETIDINE HCL 300 MG/5 ML ONE (04:00)
[2017-09-09] MEDS ORDERED: HYOSCYAMINE ELIXIR 250 MCG/10 ML BTL ONE (04:00)
[2017-09-09] MEDS ORDERED: SODIUM CHLORIDE 0.9% 1,000 ML BAG ONE (04:00)
[2017-09-09 06:26] LABS: Partial Thromboplastin Time 20.1 sec (22.0-30.0); Prothrombin Time 9.8 sec (9.0-12.0)
[2017-09-09 06:30] LABS: Creatine Kinase MB 1.9 ng/mL (0.0-2.4); Troponin I 0.028 ng/mL (0.000-0.034)
[2017-09-09 06:32] LABS: ALT 26 U/L (21-72); AST 19 U/L (17-59); Albumin 3.4 g/dL (3.5-5.0); Alkaline Phosphatase 120 U/L (38-126); Amylase 46 U/L (30-110); Anion Gap 14 mmol/L; Blood Urea Nitrogen 23 mg/dL (9-20); Calcium 9.9 mg/dL (8.4-10.2); Carbon Dioxide 22 mmol/L (22-30); Chloride 94 mmol/L (98-107); Lipase 213 U/L (23-300); Magnesium 1.7 mg/dL (1.6-2.3); Potassium 4.5 mmol/L (3.5-5.1); Sodium 130 mmol/L (137-145); Total Bilirubin 0.4 mg/dL (0.2-1.3); Total Protein 5.8 g/dL (6.3-8.2)
[2017-09-09 06:33] LABS: Glucose 599 mg/dL (74-99)
--- NOTE | 2017-09-09 07:10 | XR ---
EXAM: XR Chest, 1 View CLINICAL HISTORY: Chest pain. H/O CAD, asthma, heart failure, ME, CVA, stents, heart cath. Prior on pacs. TECHNIQUE: Frontal view of the chest. COMPARISON: on pacs FINDINGS: Lungs: See below. Pleural space: No pleural effusions. No pneumothorax. Heart: Mild cardiomegaly with mild bilateral perihilar infiltrates suggests mild CHF/pulmonary edema. Mediastinum: Unremarkable. Bones/joints: Unremarkable. Tubes, lines and devices: Left-sided chest wall pacemaker lead is seen with lead tips overlying the right atrium, right ventricle, and left ventricle. IMPRESSION: Mild cardiomegaly with mild bilateral perihilar infiltrates suggests mild CHF/pulmonary edema.
[2017-09-09 07:38] LABS: Basophils % (A) 1 %; Eosinophils # (A) 0.2 k/uL (0-0.7); Eosinophils % (A) 3 %; HCT 40.7 % (39.0-53.0); HGB 13.2 gm/dL (13.0-17.5); Lymphocytes # (A) 1.4 k/uL (1.0-4.8); Lymphocytes % (A) 31 %; MCH 25.5 pg (25.0-35.0); MCHC 32.5 g/dL (31.0-37.0); MCV 78.4 fL (80.0-100.0); Mean Platelet Volume 6.9; Monocytes # (A) 0.1 k/uL (0-1.0); Monocytes % (A) 3 %; Neutrophils # (A) 2.7 k/uL (1.3-7.7); Neutrophils % (A) 60 %; Platelet Count 243 k/uL (150-450); RBC 5.19 m/uL (4.30-5.90); RDW 14.9 % (11.5-15.5); WBC 4.6 k/uL (3.8-10.6)
--- NOTE | 2017-09-09 07:58 | ED ---
Chest Pain HPI - General Stated Complaint: Chest Pain - History of Present Illness Initial Comments: This patient is a 41-year-old man who presents to be evaluated for substernal chest pain that started approximately 3 hours before he decided to come here. He states that he was just sitting down at the time. He describes the pain as being a burning sensation, moderate intensity, constant, and he has not noted any worsening or relieving factors. MD Complaint: chest pain Onset/Timin -: hour(s) Onset: during rest Pain Location: substernal Pain Radiation: none Severity: moderate Quality: other (Burning) Consistency: constant Improves With: nothing Worsens With: nothing - Related Data Home Medications Medication Instructions Recorded Confirmed metFORMIN HCL 1,000 mg PO AC-BID 07/03/15 07/26/17 Dulaglutide [Trulicity] 1.5 mg SQ OROZCO 03/10/16 07/26/17 Glimepiride 4 mg PO AC-BID 03/10/16 07/26/17 Cholecalciferol (Vitamin D3) 2,000 unit PO DAILY 11/07/16 07/26/17 [Vitamin D3] Linagliptin [Tradjenta] 5 mg PO HS 12/19/16 07/26/17 Previous Rx's Medication Instructions Recorded ARIPiprazole [Abilify] 15 mg PO DAILY tab 07/27/17 Acetaminophen Tab [Tylenol] 650 mg PO Q6HR PRN tab 07/27/17 Albuterol Nebulized [Ventolin 2.5 mg INHALATION RT-Q4H PRN nebu 07/27/17 Nebulized] Aspirin 81 mg PO DAILY chew 07/27/17 Atorvastatin [Lipitor] 80 mg PO HS tab 07/27/17 Famotidine [Pepcid] 40 mg PO QAM tab 07/27/17 Furosemide [Lasix] 40 mg PO DAILY tab 07/27/17 Gabapentin [Neurontin] 400 mg PO TID cap 07/27/17 Heparin Sodium,Porcine [Heparin 0 unit IV PER PROTOCOL PRN vial 07/27/17 Sodium] Isosorbide Mononitrate ER [Imdur] 30 mg PO DAILY tab.er.24h 07/27/17 Lisinopril [Zestril] 2.5 mg PO DAILY tab 07/27/17 Metoprolol Tartrate [Lopressor] 75 mg PO BID tab 07/27/17 Nitroglycerin Sl Tabs [Nitrostat] 0.4 mg SUBLINGUAL Q5M PRN tab 07/27/17 Nitroglycerin Sl Tabs [Nitrostat] 0.4 mg SUBLINGUAL Q5M PRN tab 07/27/17 Pantoprazole [Protonix] 40 mg PO BID tablet. 07/27/17 Prasugrel [Effient] 10 mg PO HS tab 07/27/17 Primidone [Mysoline] 100 mg PO BID tab 07/27/17 Ranolazine [Ranexa] 1,000 mg PO BID tab.er.12h 07/27/17 Sertraline [Zoloft] 200 mg PO DAILY tab 07/27/17 Allergies Allergy/AdvReac Type Severity Reaction Status Date / Time erythromycin base Allergy Severe Swelling Verified 07/26/17 21:44 [Erythromycin Base] codeine Allergy Unknown Swelling Verified 07/26/17 21:44 meclizine Allergy Unknown Unknown Verified 07/26/17 21:44 Penicillins Allergy Unknown Rash/Hives Verified 07/26/17 21:44 shellfish derived Allergy Unknown Anaphylaxis Verified 07/26/17 21:44 Fish Containing Products Allergy Anaphylaxis Verified 07/26/17 21:44 [Fish] Iodinated Contrast- Oral and Allergy Anaphylaxis Verified 07/26/17 21:44 IV Dye cephalexin monohydrate AdvReac Unknown Nausea & Verified 07/26/17 21:44 [From Keflex] Vomiting naproxen AdvReac Unknown Compromises Verified 07/26/17 21:44 Kidney Function atorvastatin calcium AdvReac Myalgia Verified 07/26/17 21:44 [From Lipitor] hydrocodone [From [place]] AdvReac Rapid Verified 07/26/17 21:44 Heart Rate Review of Systems ROS Statement: Those systems with pertinent positive or pertinent negative responses have been documented in the HPI. ROS Other: All systems not noted in ROS Statement are negative. Constitutional: Denies: fever, chills Respiratory: Denies: cough, dyspnea Cardiovascular: Reports: chest pain. Denies: palpitations, edema, syncope Gastrointestinal: Denies: abdominal pain, nausea, vomiting, diarrhea Genitourinary: Denies: dysuria, hematuria Musculoskeletal: Denies: back pain Skin: Denies: rash Neurological: Denies: headache, weakness, numbness EKG Findings - EKG Results: EKG: interpreted by ERMD, sinus rhythm, normal ST/T, no acute changes - Blocks, [place], Hypertrophy, ST Abn: QRS axis and voltage: right axis deviation (+90 to +180) - MD, Pacemaker, Normal: Myocardial infarction: anterior MD (old age or indeterminate) Past Medical History Past Medical History: Asthma, Coronary Artery Disease (CAD), Chest Pain / Angina , Heart Failure, CVA/TIA, Diabetes Mellitus, GERD/Reflux, Hyperlipidemia, Hypertension, Myocardial Infarction ([place]), Osteoarthritis (OA), Pneumonia, Skin Disorder, Sleep Apnea/CPAP/BIPAP Additional Past Medical History / Comment(s): multiple vessel CAD, ischemic cardiomyopathy, diabetic neuropathy bilateral hands and feet, hypertensive cardiovascular disease, SHELIA with no device, chronic gastritis, degenerative disc disease, chronic back pain, depression with hx of suicide attempts, gastroparesis, psoriasis, UTI, migraines, TIA, PUD, hiatal hernia, L rotator cuff tear, bronchitis, pseudoaneurysm L groin post procedure. 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 Date of Last Stent Placement:: 12/23/16 Type of Cardiac Device: Biventricular Pacemaker, AICD Device Placement Date:: 09/19/15 Past Psychological History: Anxiety, Depression, PTSD Additional Psychological History / Comment(s): Several suicide attempts with use of insulin. PTSD - in 2000 his 3mo old son in his arms (born 2 months premature). Pt states his depression is stable at this time and he denies any suicidal thoughts or plans. He is independent. Pt lives at home with his , mom and sister. Pt drives and he is indp at home. Smoking Status: Never smoker Past Alcohol Use History: None Reported Additional Past Alcohol Use History / Comment(s): Past alcohol abuse - pt states he quit drinking 7yrs ago. Past Drug Use History: None Reported Additional Drug Use History / Comment(s): Pt has smoked marijuana in the past - last smoked in 1999. - Past Family History Mother Family Medical History: Coronary Artery Disease (CAD), Myocardial Infarction ([place] ) Additional Family Medical History / Comment(s): 7 [place] and faulty heart valve. Pt does not know the age when mother had her MD's. Father History Unknown: Yes Additional Family Medical History / Comment(s): Does not know who father is. Brother(s) Family Medical History: Congestive Heart Failure (CHF), Myocardial Infarction ( [place]) Additional Family Medical History / Comment(s): Parkinsons. Pt does not know at what age his brother had an MD. Patient has Family Medical History: No Reported History Additional Family Medical History / Comment(s): There is a strong family history for heart disease, hypertension, and diabetes. General Exam General appearance: alert, in no apparent distress, obese Head exam: Present: atraumatic, normocephalic Eye exam: Present: normal appearance. Absent: scleral icterus, conjunctival injection ENT exam: Present: normal oropharynx Respiratory exam: Present: normal lung sounds bilaterally. Absent: respiratory distress, wheezes, rales, rhonchi, stridor Cardiovascular Exam: Present: regular rate, normal rhythm, normal heart sounds. Absent: systolic murmur, diastolic murmur, rubs, gallop GI/Abdominal exam: Present: soft. Absent: distended, tenderness, guarding, rebound, rigid, mass Extremities exam: Present: normal inspection, normal capillary refill. Absent: pedal edema, calf tenderness Back exam: Present: normal inspection. Absent: CVA tenderness (R), CVA tenderness (L) Neurological exam: Present: alert Skin exam: Present: warm, dry, intact, normal color. Absent: rash Chest Pain MDM - [facility] Patient's 41-year-old man presenting with substernal burning chest pain. Given his previous history, cardiac workup performed which is negative, including 2 sets of negative troponins. The patient's symptoms had subsided, and he was feeling better and desiring to go home. We discussed appropriate further care and follow-up as well as return parameters. Disposition Clinical Impression: Chest pain, Esophagitis, Hyperglycemia Disposition: HOME SELF-CARE Condition: Fair Instructions: Chest Pain (ED), Diabetic Hyperglycemia (ED) Is patient prescribed a controlled substance at d/c from ED?: No Referrals: Junie New MD [Primary Care Provider] - 1-2 days
[2017-09-14 10:38] LABS: Glucose,Whole Blood 311 mg/dL (75-99)
== END 2017-09-09 08:22 | disposition home or self-care (01) ==
LOC: EC 03:00
DX: K20.9 Esophagitis, unspecified (principal); E11.65 Type 2 diabetes mellitus with hyperglycemia; E11.40 Type 2 diabetes mellitus with diabetic neuropathy, unspecified; E66.9 Obesity, unspecified; Z79.84 Long term (current) use of oral hypoglycemic drugs; Z88.0 Allergy status to penicillin; Z88.1 Allergy status to other antibiotic agents; Z88.5 Allergy status to narcotic agent; Z88.6 Allergy status to analgesic agent; Z88.8 Allergy status to other drugs, medicaments and biological substances; Z91.013 Allergy to seafood; Z91.041 Radiographic dye allergy status; Z95.810 Presence of automatic (implantable) cardiac defibrillator; Z82.49 Family history of ischemic heart disease and other diseases of the circulatory system; Z83.3 Family history of diabetes mellitus
CPT/HCPCS: 36415; 71045; 80053; 82150; 82550; 82553; 83690; 83735; 84484; 85025; 85610; 85730; 93005; 99285

== ENCOUNTER 2017-10-23 22:06 | Emergency (ER) | payer MEDICARE, OTHER ==
[2017-10-23 22:15] VITALS: BP 111/66; PULSE 93; RESP 18; TEMP 97.6
[2017-10-23] MEDS ORDERED: methylPREDNISolone SOD SUCCI 125 MG/2 ML VIAL IM ONE (23:24)
--- NOTE | 2017-10-23 23:27 | ED ---
Skin/Abscess/FB HPI - General Chief complaint: Skin/Abscess/Foreign Body Stated complaint: Leg Rash/Redness Time Seen by Provider: 10/23/17 23:08 Source: patient Mode of arrival: ambulatory Limitations: no limitations - History of Present Illness Initial comments: 41-year-old male patient presents to emergency department today for evaluation of rash to his right leg. Patient states that he notices started a few days ago. Patient states the first area was on the inside of his right ankle. States that he now has an area over the back of his right knee and the lateral aspect of his right thigh. Patient states that the areas are very itchy. He states that the areas seemed to start as blisters and then when he scratches of a open. Patient denies any contact with new substances. Denies any new lotions , creams, soaps, detergents, foods, medications, or clothing. States he is unsure what could be causing the rash. Denies any history of similar symptoms. Denies any fevers or chills with this. Denies any drainage of pus from the lesions. Patient denies any recent shortness breath, chest pain, abdominal pain , nausea, vomiting, diarrhea, constipation, back pain, numbness, tingling, dizziness, weakness, hematuria, dysuria, urinary urgency, urinary frequency, headache, visual changes, or any other complaints. - Related Data Home Medications Medication Instructions Recorded Confirmed metFORMIN HCL 1,000 mg PO AC-BID 07/03/15 10/23/17 Dulaglutide [Trulicity] 1.5 mg SQ OROZCO 03/10/16 10/23/17 Glimepiride 4 mg PO AC-BID 03/10/16 10/23/17 Cholecalciferol (Vitamin D3) 2,000 unit PO DAILY 11/07/16 10/23/17 [Vitamin D3] Linagliptin [Tradjenta] 5 mg PO HS 12/19/16 10/23/17 Previous Rx's Medication Instructions Recorded ARIPiprazole [Abilify] 15 mg PO DAILY tab 07/27/17 Acetaminophen Tab [Tylenol] 650 mg PO Q6HR PRN tab 07/27/17 Albuterol Nebulized [Ventolin 2.5 mg INHALATION RT-Q4H PRN nebu 07/27/17 Nebulized] Aspirin 81 mg PO DAILY chew 07/27/17 Atorvastatin [Lipitor] 80 mg PO HS tab 07/27/17 Famotidine [Pepcid] 40 mg PO QAM tab 07/27/17 Furosemide [Lasix] 40 mg PO DAILY tab 07/27/17 Gabapentin [Neurontin] 400 mg PO TID cap 07/27/17 Heparin Sodium,Porcine [Heparin 0 unit IV PER PROTOCOL PRN vial 07/27/17 Sodium] Isosorbide Mononitrate ER [Imdur] 30 mg PO DAILY tab.er.24h 07/27/17 Lisinopril [Zestril] 2.5 mg PO DAILY tab 07/27/17 Metoprolol Tartrate [Lopressor] 75 mg PO BID tab 07/27/17 Nitroglycerin Sl Tabs [Nitrostat] 0.4 mg SUBLINGUAL Q5M PRN tab 07/27/17 Pantoprazole [Protonix] 40 mg PO BID tablet. 07/27/17 Prasugrel [Effient] 10 mg PO HS tab 07/27/17 Primidone [Mysoline] 100 mg PO BID tab 07/27/17 Ranolazine [Ranexa] 1,000 mg PO BID tab.er.12h 07/27/17 Sertraline [Zoloft] 200 mg PO DAILY tab 07/27/17 predniSONE 50 mg PO DAILY #5 tablet 10/23/17 Allergies Allergy/AdvReac Type Severity Reaction Status Date / Time erythromycin base Allergy Severe Swelling Verified 10/23/17 22:57 [Erythromycin Base] codeine Allergy Unknown Swelling Verified 10/23/17 22:57 meclizine Allergy Unknown Unknown Verified 10/23/17 22:57 Penicillins Allergy Unknown Rash/Hives Verified 10/23/17 22:57 shellfish derived Allergy Unknown Anaphylaxis Verified 10/23/17 22:57 Fish Containing Products Allergy Anaphylaxis Verified 10/23/17 22:57 [Fish] Iodinated Contrast- Oral and Allergy Anaphylaxis Verified 10/23/17 22:57 IV Dye cephalexin monohydrate AdvReac Unknown Nausea & Verified 10/23/17 22:57 [From Keflex] Vomiting naproxen AdvReac Unknown Compromises Verified 10/23/17 22:57 Kidney Function atorvastatin calcium AdvReac Myalgia Verified 10/23/17 22:57 [From Lipitor] hydrocodone [From [place]] AdvReac Rapid Verified 10/23/17 22:57 Heart Rate Review of Systems ROS Statement: Those systems with pertinent positive or pertinent negative responses have been documented in the HPI. ROS Other: All systems not noted in ROS Statement are negative. Past Medical History Past Medical History: Asthma, Coronary Artery Disease (CAD), Chest Pain / Angina , Heart Failure, CVA/TIA, Diabetes Mellitus, GERD/Reflux, Hyperlipidemia, Hypertension, Myocardial Infarction ([place]), Osteoarthritis (OA), Pneumonia, Skin Disorder, Sleep Apnea/CPAP/BIPAP Additional Past Medical History / Comment(s): multiple vessel CAD, ischemic cardiomyopathy, diabetic neuropathy bilateral hands and feet, hypertensive cardiovascular disease, SHELIA with no device, chronic gastritis, degenerative disc disease, chronic back pain, depression with hx of suicide attempts, gastroparesis, psoriasis, UTI, migraines, TIA, PUD, hiatal hernia, L rotator cuff tear, bronchitis, pseudoaneurysm L groin post procedure. 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 Date of Last Stent Placement:: 12/23/16 Type of Cardiac Device: Biventricular Pacemaker, AICD Device Placement Date:: 09/19/15 Past Psychological History: Anxiety, Depression, PTSD Smoking Status: Never smoker Past Alcohol Use History: None Reported Past Drug Use History: None Reported - Past Family History Mother Family Medical History: Coronary Artery Disease (CAD), Myocardial Infarction ([place] ) Additional Family Medical History / Comment(s): 7 [place] and faulty heart valve. Pt does not know the age when mother had her [place]'s. Father History Unknown: Yes Additional Family Medical History / Comment(s): Does not know who father is. Brother(s) Family Medical History: Congestive Heart Failure (CHF), Myocardial Infarction ( [place]) Additional Family Medical History / Comment(s): Parkinsons. Pt does not know at what age his brother had an [place]. Patient has Family Medical History: No Reported History Additional Family Medical History / Comment(s): There is a strong family history for heart disease, hypertension, and diabetes. General Exam Limitations: no limitations General appearance: alert, in no apparent distress, other (This is a well- developed, well-nourished adult male patient in no acute distress. Vital signs upon presentation are temperature 97.6F, pulse 93, respirations 18, blood pressure 111/66, pulse ox 99% on room air.) Eye exam: Present: normal appearance, PERRL, EOMI. Absent: scleral icterus, conjunctival injection, periorbital swelling ENT exam: Present: normal exam, normal oropharynx, mucous membranes moist Respiratory exam: Present: normal lung sounds bilaterally. Absent: respiratory distress, wheezes, rales, rhonchi, stridor Cardiovascular Exam: Present: regular rate, normal rhythm, normal heart sounds. Absent: systolic murmur, diastolic murmur, rubs, gallop, clicks Neurological exam: Present: alert, oriented X3, CN II-XII intact Psychiatric exam: Present: normal affect, normal mood Skin exam: Present: warm, dry, intact, normal color, rash (There is a erythematous rash noted to the medial ankle, the posterior right knee and the lateral aspect of the right thigh. There are evidence of small blister formation with surrounding erythema and maceration as patient has been itching the area.) Course Vital Signs 10/23/17 22:11 Temperature 97.6 F Pulse Rate 93 Respiratory 18 Rate Blood Pressure 111/66 O2 Sat by Pulse 99 Oximetry Medical Decision Making - Medical Decision Making 41-year-old male patient presents to the emergency department today for evaluation of a rash. Physical examination did reveal a rash consistent with contact dermatitis noted over the medial right ankle, the right lateral thigh, and the posterior right knee. Patient will be given an IM injection of steroids here in the department. He'll be given a prescription for steroids to take at home. He is instructed to continue applying Benadryl cream and cool compresses for symptom relief. Return parameters discussed in detail. He verbalizes understanding and agrees with this plan. Disposition Clinical Impression: Contact dermatitis Disposition: HOME SELF-CARE Condition: Good Instructions: Contact Dermatitis (ED) Additional Instructions: Cool compresses over the rash area. Apply Benadryl cream and take oral Benadryl as needed for symptom relief. Complete steroid prescription and full. Follow-up with your primary care physician for recheck in 1-2 days. Return here immediately for any new, worsening, or concerning symptoms. Prescriptions: predniSONE 50 mg PO DAILY #5 tablet Is patient prescribed a controlled substance at d/c from ED?: No Referrals: Junie New MD [Primary Care Provider] - 1-2 days Time of Disposition: 23:26
== END 2017-10-23 23:38 | disposition home or self-care (01) ==
LOC: EC 22:06
DX: L25.9 Unspecified contact dermatitis, unspecified cause (principal); E11.42 Type 2 diabetes mellitus with diabetic polyneuropathy; E11.43 Type 2 diabetes mellitus with diabetic autonomic (poly)neuropathy; K31.84 Gastroparesis; Z79.84 Long term (current) use of oral hypoglycemic drugs; Z79.899 Other long term (current) drug therapy; Z88.0 Allergy status to penicillin; Z88.1 Allergy status to other antibiotic agents; Z88.5 Allergy status to narcotic agent; Z88.6 Allergy status to analgesic agent; Z88.8 Allergy status to other drugs, medicaments and biological substances; Z91.013 Allergy to seafood; Z91.041 Radiographic dye allergy status; Z86.14 Personal history of Methicillin resistant Staphylococcus aureus infection
CPT/HCPCS: 99282; 96372; J2930

== ENCOUNTER 2017-10-27 00:18 | Inpatient (IN) | payer MEDICARE, OTHER ==
[2017-10-27 01:00] LABS: Anisocytosis Slight; Basophils % (A) 0 %; Eosinophils # (A) 0.2 k/uL (0-0.7); Eosinophils % (A) 5 %; HCT 35.4 % (39.0-53.0); HGB 11.1 gm/dL (13.0-17.5); Hypochromasia Slight; Lymphocytes # (A) 1.2 k/uL (1.0-4.8); Lymphocytes % (A) 23 %; MCH 25.2 pg (25.0-35.0); MCHC 31.5 g/dL (31.0-37.0); MCV 79.9 fL (80.0-100.0); Mean Platelet Volume 7.1; Monocytes # (A) 0.3 k/uL (0-1.0); Monocytes % (A) 5 %; Neutrophils # (A) 3.4 k/uL (1.3-7.7); Neutrophils % (A) 66 %; Platelet Count 264 k/uL (150-450); RBC 4.43 m/uL (4.30-5.90); RDW 16.3 % (11.5-15.5); WBC 5.2 k/uL (3.8-10.6)
[2017-10-27 01:08] LABS: ALT 54 U/L (21-72); AST 23 U/L (17-59); Albumin 3.1 g/dL (3.5-5.0); Alkaline Phosphatase 135 U/L (38-126); Anion Gap 11 mmol/L; Blood Urea Nitrogen 17 mg/dL (9-20); Carbon Dioxide 24 mmol/L (22-30); Chloride 101 mmol/L (98-107); Glucose 419 mg/dL (74-99); Magnesium 1.9 mg/dL (1.6-2.3); Potassium 4.1 mmol/L (3.5-5.1); Sodium 136 mmol/L (137-145); Total Bilirubin 0.2 mg/dL (0.2-1.3); Total Protein 5.2 g/dL (6.3-8.2)
--- NOTE | 2017-10-27 01:10 | ED ---
SOB HPI - General Chief Complaint: Shortness of Breath Stated Complaint: Difficulty Breathing Time Seen by Provider: 10/27/17 00:30 Source: patient Mode of arrival: wheelchair Limitations: no limitations - History of Present Illness MD Complaint: shortness of breath Onset/Timin -: days(s) Severity: moderate Consistency: constant Improves With: upright position Worsens With: lying flat, movement Known History Of: asthma, congestive heart failure, diabetes Associated Symptoms: denies other symptoms Treatments Prior to Arrival: bronchodilator - Related Data Home Medications Medication Instructions Recorded Confirmed metFORMIN HCL 1,000 mg PO AC-BID 07/03/15 10/23/17 Dulaglutide [Trulicity] 1.5 mg SQ OROZCO 03/10/16 10/23/17 Glimepiride 4 mg PO AC-BID 03/10/16 10/23/17 Cholecalciferol (Vitamin D3) 2,000 unit PO DAILY 11/07/16 10/23/17 [Vitamin D3] Linagliptin [Tradjenta] 5 mg PO HS 12/19/16 10/23/17 Previous Rx's Medication Instructions Recorded ARIPiprazole [Abilify] 15 mg PO DAILY tab 07/27/17 Acetaminophen Tab [Tylenol] 650 mg PO Q6HR PRN tab 07/27/17 Albuterol Nebulized [Ventolin 2.5 mg INHALATION RT-Q4H PRN nebu 07/27/17 Nebulized] Aspirin 81 mg PO DAILY chew 07/27/17 Atorvastatin [Lipitor] 80 mg PO HS tab 07/27/17 Famotidine [Pepcid] 40 mg PO QAM tab 07/27/17 Furosemide [Lasix] 40 mg PO DAILY tab 07/27/17 Gabapentin [Neurontin] 400 mg PO TID cap 07/27/17 Heparin Sodium,Porcine [Heparin 0 unit IV PER PROTOCOL PRN vial 07/27/17 Sodium] Isosorbide Mononitrate ER [Imdur] 30 mg PO DAILY tab.er.24h 07/27/17 Lisinopril [Zestril] 2.5 mg PO DAILY tab 07/27/17 Metoprolol Tartrate [Lopressor] 75 mg PO BID tab 07/27/17 Nitroglycerin Sl Tabs [Nitrostat] 0.4 mg SUBLINGUAL Q5M PRN tab 07/27/17 Pantoprazole [Protonix] 40 mg PO BID tablet. 07/27/17 Prasugrel [Effient] 10 mg PO HS tab 07/27/17 Primidone [Mysoline] 100 mg PO BID tab 07/27/17 Ranolazine [Ranexa] 1,000 mg PO BID tab.er.12h 07/27/17 Sertraline [Zoloft] 200 mg PO DAILY tab 07/27/17 predniSONE 50 mg PO DAILY #5 tablet 10/23/17 Allergies Allergy/AdvReac Type Severity Reaction Status Date / Time erythromycin base Allergy Severe Swelling Verified 10/27/17 00:26 [Erythromycin Base] codeine Allergy Unknown Swelling Verified 10/27/17 00:26 meclizine Allergy Unknown Unknown Verified 10/27/17 00:26 Penicillins Allergy Unknown Rash/Hives Verified 10/27/17 00:26 shellfish derived Allergy Unknown Anaphylaxis Verified 10/27/17 00:26 Fish Containing Products Allergy Anaphylaxis Verified 10/27/17 00:26 [Fish] Iodinated Contrast- Oral and Allergy Anaphylaxis Verified 10/27/17 00:26 IV Dye cephalexin monohydrate AdvReac Unknown Nausea & Verified 10/27/17 00:26 [From Keflex] Vomiting naproxen AdvReac Unknown Compromises Verified 10/27/17 00:26 Kidney Function atorvastatin calcium AdvReac Myalgia Verified 10/27/17 00:26 [From Lipitor] hydrocodone [From [place]] AdvReac Rapid Verified 10/27/17 00:26 Heart Rate Review of Systems ROS Statement: Those systems with pertinent positive or pertinent negative responses have been documented in the HPI. ROS Other: All systems not noted in ROS Statement are negative. Constitutional: Denies: fever, chills Respiratory: Reports: dyspnea. Denies: cough, wheezes, hemoptysis Cardiovascular: Reports: chest pain (Patient had a brief episode of chest pain when he arrived here but it resolved over the course of 2 minutes), edema. Denies: palpitations, syncope Gastrointestinal: Denies: abdominal pain, vomiting, diarrhea Genitourinary: Denies: dysuria, hematuria Musculoskeletal: Denies: back pain Skin: Denies: rash Neurological: Denies: headache, weakness, numbness Past Medical History Past Medical History: Asthma, Coronary Artery Disease (CAD), Chest Pain / Angina , Heart Failure, CVA/TIA, Diabetes Mellitus, GERD/Reflux, Hyperlipidemia, Hypertension, Myocardial Infarction ([place]), Osteoarthritis (OA), Pneumonia, Skin Disorder, Sleep Apnea/CPAP/BIPAP Additional Past Medical History / Comment(s): multiple vessel CAD, ischemic cardiomyopathy, diabetic neuropathy bilateral hands and feet, hypertensive cardiovascular disease, SHELIA with no device, chronic gastritis, degenerative disc disease, chronic back pain, depression with hx of suicide attempts, gastroparesis, psoriasis, UTI, migraines, TIA, PUD, hiatal hernia, L rotator cuff tear, bronchitis, pseudoaneurysm L groin post procedure. Last Myocardial Infarction Date:: December 2016 History of Any Multi-Drug Resistant Organisms: MRSA Date of last positivie culture/infection: 06/09/16 MDRO Source:: face Past Surgical History: AICD, Appendectomy, Cholecystectomy, Heart Catheterization With Stent, Hernia Repair Additional Past Surgical History / Comment(s): Pt has had multiple cardiac procedures- caths/stents/PTCA, last stent placed at [facility] - December 2016 , SAVANNAH, R inguinal hernia repair, umbilical hernia repair, right orchiectomy due to necrosis, right hand surgery r/t injury, colonoscopy, cystoscopy (scraped bladder parrish) Past Anesthesia/Blood Transfusion Reactions: No Reported Reaction Additional Past Anesthesia/Blood Transfusion Reaction / Comment(s): . Date of Last Stent Placement:: 12/23/16 Type of Cardiac Device: Biventricular Pacemaker, AICD Device Placement Date:: 09/19/15 Past Psychological History: Anxiety, Depression, PTSD Smoking Status: Never smoker Past Alcohol Use History: None Reported Past Drug Use History: None Reported - Past Family History Mother Family Medical History: Coronary Artery Disease (CAD), Myocardial Infarction ([place] ) Additional Family Medical History / Comment(s): 7 [place] and faulty heart valve. Pt does not know the age when mother had her [place]'s. Father History Unknown: Yes Additional Family Medical History / Comment(s): Does not know who father is. Brother(s) Family Medical History: Congestive Heart Failure (CHF), Myocardial Infarction ( [place]) Additional Family Medical History / Comment(s): Parkinsons. Pt does not know at what age his brother had an [place]. Patient has Family Medical History: No Reported History Additional Family Medical History / Comment(s): There is a strong family history for heart disease, hypertension, and diabetes. General Exam Limitations: no limitations General appearance: alert, in no apparent distress, obese Eye exam: Present: normal appearance ENT exam: Present: normal oropharynx Neck exam: Present: normal inspection Respiratory exam: Present: rales (Over the lower third of the lung hendrix bilaterally). Absent: respiratory distress, wheezes, rhonchi, stridor, accessory muscle use, decreased breath sounds, prolonged expiratory Cardiovascular Exam: Present: regular rate, normal rhythm, normal heart sounds. Absent: systolic murmur, diastolic murmur, rubs, gallop GI/Abdominal exam: Present: soft. Absent: distended, tenderness, guarding, rebound, mass Extremities exam: Present: normal inspection, normal capillary refill, pedal edema. Absent: calf tenderness Back exam: Present: normal inspection. Absent: CVA tenderness (R), CVA tenderness (L) Neurological exam: Present: alert Skin exam: Present: warm, dry, intact, normal color. Absent: rash Course Vital Signs 10/27/17 10/27/17 10/27/17 00:23 00:45 02:42 Temperature 97.8 F Pulse Rate 99 98 90 Pulse Rate [ 98 Peer Specialist ] Respiratory 17 18 18 Rate Blood Pressure 133/87 110/71 O2 Sat by Pulse 96 99 100 Oximetry 10/27/17 04:31 Temperature 98.8 F Pulse Rate 97 Pulse Rate [ Peer Specialist ] Respiratory 18 Rate Blood Pressure 147/105 O2 Sat by Pulse 98 Oximetry Medical Decision Making - Lab Data Result diagrams: 10/27/17 00:40 10/27/17 00:40 Lab Results 10/27/17 10/27/17 10/27/17 Range/Units 00:40 00:40 00:40 WBC 5.2 (3.8-10.6) k/uL RBC 4.43 (4.30-5.90) m/uL Hgb 11.1 L (13.0-17.5) gm/dL Hct 35.4 L (39.0-53.0) % MCV 79.9 L (80.0-100.0) fL MCH 25.2 (25.0-35.0) pg MCHC 31.5 (31.0-37.0) g/dL RDW 16.3 H (11.5-15.5) % Plt Count 264 (150-450) k/uL Neutrophils % 66 % Lymphocytes % 23 % Monocytes % 5 % Eosinophils % 5 % Basophils % 0 % Neutrophils # 3.4 (1.3-7.7) k/uL Lymphocytes # 1.2 (1.0-4.8) k/uL Monocytes # 0.3 (0-1.0) k/uL Eosinophils # 0.2 (0-0.7) k/uL Basophils # 0.0 (0-0.2) k/uL Hypochromasia Slight Anisocytosis Slight PT (9.0-12.0) sec INR (<1.2) APTT (22.0-30.0) sec Sodium 136 L (137-145) mmol/L Potassium 4.1 (3.5-5.1) mmol/L Chloride 101 (98-107) mmol/L Carbon Dioxide 24 (22-30) mmol/L Anion Gap 11 mmol/L BUN 17 (9-20) mg/dL Creatinine 0.80 (0.66-1.25) mg/dL Est GFR (CKD-EPI)AfAm >90 (>60 ml/min/1.73 sqM) Est GFR (CKD-EPI)NonAf >90 (>60 ml/min/1.73 sqM) Glucose 419 H (74-99) mg/dL Calcium 9.0 (8.4-10.2) mg/dL Magnesium 1.9 (1.6-2.3) mg/dL Total Bilirubin 0.2 (0.2-1.3) mg/dL AST 23 (17-59) U/L ALT 54 (21-72) U/L Alkaline Phosphatase 135 H (38-126) U/L Total Creatine Kinase 98 (55-170) U/L CK-MB (CK-2) 1.0 (0.0-2.4) ng/mL CK-MB (CK-2) Rel Index 1.0 Troponin I 0.258 H* (0.000-0.034) ng/mL NT-Pro-B Natriuret Pep pg/mL Total Protein 5.2 L (6.3-8.2) g/dL Albumin 3.1 L (3.5-5.0) g/dL 10/27/17 10/27/17 10/27/17 Range/Units 00:40 00:40 03:21 WBC (3.8-10.6) k/uL RBC (4.30-5.90) m/uL Hgb (13.0-17.5) gm/dL Hct (39.0-53.0) % MCV (80.0-100.0) fL MCH (25.0-35.0) pg MCHC (31.0-37.0) g/dL RDW (11.5-15.5) % Plt Count (150-450) k/uL Neutrophils % % Lymphocytes % % Monocytes % % Eosinophils % % Basophils % % Neutrophils # (1.3-7.7) k/uL Lymphocytes # (1.0-4.8) k/uL Monocytes # (0-1.0) k/uL Eosinophils # (0-0.7) k/uL Basophils # (0-0.2) k/uL Hypochromasia Anisocytosis PT 9.8 (9.0-12.0) sec INR 1.0 (<1.2) APTT 18.9 L (22.0-30.0) sec Sodium (137-145) mmol/L Potassium (3.5-5.1) mmol/L Chloride (98-107) mmol/L Carbon Dioxide (22-30) mmol/L Anion Gap mmol/L BUN (9-20) mg/dL Creatinine (0.66-1.25) mg/dL Est GFR (CKD-EPI)AfAm (>60 ml/min/1.73 sqM) Est GFR (CKD-EPI)NonAf (>60 ml/min/1.73 sqM) Glucose (74-99) mg/dL Calcium (8.4-10.2) mg/dL Magnesium (1.6-2.3) mg/dL Total Bilirubin (0.2-1.3) mg/dL AST (17-59) U/L ALT (21-72) U/L Alkaline Phosphatase (38-126) U/L Total Creatine Kinase (55-170) U/L CK-MB (CK-2) (0.0-2.4) ng/mL CK-MB (CK-2) Rel Index Troponin I 0.284 H* (0.000-0.034) ng/mL NT-Pro-B Natriuret Pep 3460 pg/mL Total Protein (6.3-8.2) g/dL Albumin (3.5-5.0) g/dL - EKG Data -: EKG Interpreted by Me EKG shows normal: axis (Normal), intervals (Normal), ST-T waves (Normal) Rate: normal Interpretation: other (The underlying rhythm appears to be paced at a rate of 96 bpm) Disposition Clinical Impression: Congestive heart failure, Hyperglycemia, Elevated troponin I level Disposition: [facility] Condition: Fair Is patient prescribed a controlled substance at d/c from ED?: No Referrals: Junie New MD [Primary Care Provider] - 1-2 days
[2017-10-27 01:13] LABS: Prothrombin Time 9.8 sec (9.0-12.0)
[2017-10-27 01:40] LABS: Partial Thromboplastin Time 18.9 sec (22.0-30.0)
--- NOTE | 2017-10-27 01:58 | XR ---
EXAMINATION TYPE: XR chest 2V DATE OF EXAM: 10/27/2017 COMPARISON: 09/09/2017 HISTORY: Difficulty breathing TECHNIQUE: Frontal and lateral views of the chest are obtained. FINDINGS: Heart and mediastinum are normal. There is left axillary pacemaker with the lead tips in t he right ventricle. There is no heart failure. There is slight coarsening of the lung markings. I see no pleural effusion. IMPRESSION: Slight increased lung markings compared to old exam. No gross heart failure.
[2017-10-27 02:01] LABS: Troponin I 0.258 ng/mL (0.000-0.034)
[2017-10-27] MEDS ORDERED: FUROSEMIDE 10 MG/ML 4 ML VIAL IV STA (02:10)
[2017-10-27] MEDS ORDERED: ALBUTEROL NEBULIZED 2.5 MG/3 ML INHALATION PRN (04:33)
[2017-10-27] MEDS ORDERED: ACETAMINOPHEN TAB 325 MG TAB PO PRN (04:33)
[2017-10-27 06:17] LABS: Glucose,Whole Blood 360 mg/dL (75-99)
[2017-10-27] MEDS: metFORMIN 500 MG TAB PO SCH ×2 (06:31→17:00)
[2017-10-27] MEDS: GLIMEPIRIDE 4 MG TAB PO SCH ×2 (06:31→17:00)
[2017-10-27] MEDS ORDERED: METOPROLOL TARTRATE 25 MG TAB PO SCH (09:00)
[2017-10-27 12:05] LABS: Creatine Kinase MB 0.8 ng/mL (0.0-2.4)
[2017-10-27 12:07] LABS: Troponin I 0.271 ng/mL (0.000-0.034)
[2017-10-27 12:07] LABS: Glucose,Whole Blood 336 mg/dL (75-99)
[2017-10-27 12:07] LABS: Glucose,Whole Blood 357 mg/dL (75-99)
[2017-10-27] MEDS: ARIPiprazole 15 MG TAB PO SCH (12:22)
[2017-10-27] MEDS: FAMOTIDINE 20 MG TAB PO SCH (12:24)
[2017-10-27] MEDS: GABAPENTIN 400 MG CAP PO SCH ×3 (12:24→21:00)
[2017-10-27] MEDS: FUROSEMIDE 10 MG/ML 4 ML VIAL IV SCH ×2 (12:24→15:00)
[2017-10-27] MEDS: RANOLAZINE 500 MG TAB.ER.12H PO SCH ×2 (12:25→20:59)
[2017-10-27] MEDS: PRIMIDONE 50 MG TAB PO SCH ×2 (12:25→21:00)
[2017-10-27] MEDS: ASPIRIN 81 MG PO SCH (12:25)
[2017-10-27] MEDS: SERTRALINE 100 MG TAB PO SCH (12:26)
[2017-10-27] MEDS: LISINOPRIL 2.5 MG TAB PO SCH (12:34)
[2017-10-27] MEDS: PANTOPRAZOLE 40 MG TABLET PO SCH ×2 (12:34→21:00)
[2017-10-27] MEDS: NITROGLYCERIN OINT 1 INCH/GM PACKET TOPICAL SCH ×4 (12:34→20:57)
[2017-10-27] MEDS: ISOSORBIDE MONONITRATE ER 30 MG TAB.ER.24H PO SCH (12:35)
[2017-10-27] MEDS ORDERED: INSULIN ASPART 100 UNIT/ML 1 ML 10 ML VIAL SQ ONE (14:30)
--- NOTE | 2017-10-27 15:12 | P.HPIM ---
History of Present Illness H&P Date: 10/27/17 Chief Complaint: Shortness of breath Patient is a 41-year-old male with a known history of ischemic cardiomyopathy status post AICD placement, coronary artery disease with history of multiple prior stents, uncontrolled diabetes type 2 [id number], obstructive sleep apnea on CPAP and multiple other medical problems including morbid obesity came to ER with complaints of shortness of breath getting worse for the past few days. Patient is also complaining of leg swelling and unable to lie flat without shortness of breath. Patient also woke up from sleep with shortness of breath. Patient was recently admitted to hospital with non-ST elevated OH about 3 months ago. Otherwise no complaints of fever or chills. No cough or sputum production. No nausea vomiting or abdominal pain. Chest x-ray showed slight increased lung markings compared to old exam. No gross heart failure. EKG showed atrial sensed ventricular paced rhythm. Troponin 0.284 and 0.271 CBG greater than 400 on admission. Review of Systems Constitutional: Patient denies any fever or chills . No generalized weakness or weight loss. Abdomen: Patient denied nausea vomiting and diarrhea and abdominal pain. Cardiovascular: Patient does have shortness of breath. No palpitations. Does have leg swelling Respiratory: patient denied any cough is from production. No shortness of breath Neurologic: Patient denied any numbness or tingling headache. Musculoskeletal: Patient denies any complaints of joint swelling or deformity. Skin: Negative Psychiatric: Negative Endocrine: No heat or cold intolerance. No recent weight gain. Genitourinary: No dysuria or hematuria. All other 14 point ROS negative except the above Past Medical History Past Medical History: Asthma, Coronary Artery Disease (CAD), Chest Pain / Angina , Heart Failure, CVA/TIA, Diabetes Mellitus, GERD/Reflux, Hyperlipidemia, Hypertension, Myocardial Infarction ([place]), Osteoarthritis ([place]), Pneumonia, Skin Disorder, Sleep Apnea/CPAP/BIPAP Additional Past Medical History / Comment(s): multiple vessel CAD, ischemic cardiomyopathy, diabetic neuropathy bilateral hands and feet, hypertensive cardiovascular disease, SHELIA with no device, chronic gastritis, degenerative disc disease, chronic back pain, depression with hx of suicide attempts, gastroparesis, psoriasis, UTI, migraines, TIA, PUD, hiatal hernia, L rotator cuff tear, bronchitis, pseudoaneurysm L groin post procedure. Last Myocardial Infarction Date:: May 2017 History of Any Multi-Drug Resistant Organisms: MRSA Date of last positivie culture/infection: 06/09/16 MDRO Source:: face Past Surgical History: AICD, Appendectomy, Cholecystectomy, Heart Catheterization With Stent, Hernia Repair Additional Past Surgical History / Comment(s): Pt has had multiple cardiac procedures- caths/stents/PTCA, last stent placed at [facility] - May 2017, SAVANNAH, R inguinal hernia repair, umbilical hernia repair, right orchiectomy due to necrosis, right hand surgery r/t injury, colonoscopy, cystoscopy ( scraped bladder parrish) Past Anesthesia/Blood Transfusion Reactions: No Reported Reaction Additional Past Anesthesia/Blood Transfusion Reaction / Comment(s): . Date of Last Stent Placement:: 05/25/2017 Type of Cardiac Device: Biventricular Pacemaker, AICD Device Placement Date:: 09/19/15 Past Psychological History: Anxiety, Depression, PTSD Additional Psychological History / Comment(s): Several suicide attempts with use of insulin. PTSD - in 2000 his 3mo old son in his arms (born 2 months premature). Pt states his depression is stable at this time and he denies any suicidal thoughts or plans. He is independent. Pt lives at home with his . Pt drives and he is indp at home. Smoking Status: Never smoker Past Alcohol Use History: None Reported Additional Past Alcohol Use History / Comment(s): Past alcohol abuse - pt states he quit drinking 7yrs ago. Past Drug Use History: None Reported Additional Drug Use History / Comment(s): Pt has smoked marijuana in the past - last smoked in 1999. - Past Family History Mother Family Medical History: Coronary Artery Disease (CAD), Myocardial Infarction ([place] ) Additional Family Medical History / Comment(s): 7 [place] and faulty heart valve. Pt does not know the age when mother had her [place]'s. Father History Unknown: Yes Additional Family Medical History / Comment(s): Does not know who father is. Brother(s) Family Medical History: Cancer, Congestive Heart Failure (CHF), Myocardial Infarction ([place]) Additional Family Medical History / Comment(s): Parkinsons. Pt does not know at what age his brother had an [place]. Patient's other brother has lung CA Patient has Family Medical History: No Reported History Additional Family Medical History / Comment(s): There is a strong family history for heart disease, hypertension, and diabetes. Medications and Allergies Home Medications Medication Instructions Recorded Confirmed Type metFORMIN HCL 1,000 mg PO AC-BID 07/03/15 10/27/17 History Glimepiride 4 mg PO AC-BID 03/10/16 10/27/17 History Cholecalciferol (Vitamin D3) 2,000 unit PO DAILY 11/07/16 10/27/17 History [Vitamin D3] Linagliptin [Tradjenta] 5 mg PO DAILY 12/19/16 10/27/17 History Aspirin 81 mg PO DAILY chew 07/27/17 10/27/17 Rx Furosemide [Lasix] 40 mg PO DAILY tab 07/27/17 10/27/17 Rx Gabapentin [Neurontin] 400 mg PO TID cap 07/27/17 10/27/17 Rx Isosorbide Mononitrate ER [Imdur] 30 mg PO DAILY tab.er.24h 07/27/17 10/27/17 Rx Lisinopril [Zestril] 2.5 mg PO DAILY tab 07/27/17 10/27/17 Rx Nitroglycerin Sl Tabs [Nitrostat] 0.4 mg SUBLINGUAL Q5M PRN tab 07/27/17 Rx Pantoprazole [Protonix] 40 mg PO BID tablet.dr 07/27/17 10/27/17 Rx Prasugrel [Effient] 10 mg PO HS tab 07/27/17 10/27/17 Rx Primidone [Mysoline] 100 mg PO BID tab 07/27/17 10/27/17 Rx Sertraline [Zoloft] 200 mg PO DAILY tab 07/27/17 10/27/17 Rx ARIPiprazole [ARIPiprazole Odt] 15 mg PO DAILY 10/27/17 10/27/17 History Acarbose 50 mg PO TID 10/27/17 10/27/17 History Albuterol Inhaler [Ventolin Hfa 2 puff INHALATION RT-Q4H PRN 10/27/17 10/27/17 History Inhaler] Baclofen [Lioresal] 10 mg PO AC-TID 10/27/17 10/27/17 History Loperamide [Imodium] 2 mg PO BID 10/27/17 10/27/17 History Loperamide [Imodium] 2 mg PO DAILY PRN 10/27/17 10/27/17 History Metoprolol Tartrate [Lopressor] 75 mg PO BID 10/27/17 10/27/17 History Ondansetron [Zofran] 4 mg PO BID PRN 10/27/17 10/27/17 History Ranitidine HCl 300 mg PO DAILY 10/27/17 10/27/17 History Ranolazine [Ranexa] 1,000 mg PO Q12H 10/27/17 10/27/17 History Rosuvastatin Calcium [Crestor] 40 mg PO HS 10/27/17 10/27/17 History Spironolactone [Aldactone] 12.5 mg PO DAILY 10/27/17 10/27/17 History Sucralfate [Carafate] 1 gm PO ACHS 10/27/17 10/27/17 History hydrALAZINE HCL [Apresoline] 25 mg PO AC-BID 10/27/17 10/27/17 History Allergies Allergy/AdvReac Type Severity Reaction Status Date / Time erythromycin base Allergy Severe Rash/Hives Verified 10/27/17 08:56 [Erythromycin Base] cephalexin monohydrate Allergy Unknown Rash/Hives Verified 10/27/17 08:56 [From Keflex] codeine Allergy Unknown Unknown Verified 10/27/17 08:56 meclizine Allergy Unknown Unknown Verified 10/27/17 08:56 Penicillins Allergy Unknown Rash/Hives Verified 10/27/17 08:56 shellfish derived Allergy Unknown Anaphylaxis Verified 10/27/17 08:56 Fish Containing Products Allergy Anaphylaxis Verified 10/27/17 08:56 [Fish] Iodinated Contrast- Oral and Allergy Anaphylaxis Verified 10/27/17 08:56 IV Dye naproxen AdvReac Unknown Compromises Verified 10/27/17 08:56 Kidney Function atorvastatin calcium AdvReac Myalgia Verified 10/27/17 08:56 [From Lipitor] hydrocodone [From [place]] AdvReac Rapid Verified 10/27/17 08:56 Heart Rate Physical Exam Vitals: Vital Signs Temp Pulse Pulse Resp BP BP Pulse Ox 10/27/17 08:45 98 F 98 16 127/72 96 10/27/17 05:30 101 H 17 10/27/17 05:29 97.0 F L 101 H 17 136/72 96 10/27/17 04:31 98.8 F 97 18 147/105 98 10/27/17 02:42 90 18 110/71 100 10/27/17 00:45 98 98 18 99 10/27/17 00:23 97.8 F 99 17 133/87 96 Intake and Output 10/26/17 10/27/17 10/27/17 22:59 06:59 14:59 Intake Total 180 444 Balance 180 444 Intake: Oral 180 444 Other: Weight 108.862 kg PHYSICAL EXAMINATION: Patient is lying in the bed comfortably, no acute distress, awake alert and oriented.. HEENT: Normocephalic. Neck is supple. Pupils reactive. Nostrils clear. Oral cavity is moist. Ears reveal no drainage. Neck reveals no JVD, carotid bruits, or thyromegaly. CHEST EXAMINATION: Trachea is central. Symmetrical expansion. Minimal basilar crackles and no wheezing. Nonlabored breathing. CARDIAC: Normal S1, S2 with no gallops. No murmurs ABDOMEN: Soft. Bowel sounds normal. No organomegaly. No abdominal bruits. Extremities: 1+ edema. No clubbing or cyanosis Neurologically awake, alert, oriented x3 with well-coordinated movements. No focal deficits noted Skin: No rash or skin lesions. Psychiatric: Cooperative. Nonsuicidal Musculoskeletal: No joint swelling or deformity. Normal range of motion. Results CBC & Chem 7: 10/27/17 00:40 10/27/17 00:40 Labs: Abnormal Lab Results - Last 24 Hours (Table) 10/27/17 10/27/17 10/27/17 Range/Units 00:40 00:40 00:40 Hgb 11.1 L (13.0-17.5) gm/dL Hct 35.4 L (39.0-53.0) % MCV 79.9 L (80.0-100.0) fL RDW 16.3 H (11.5-15.5) % APTT (22.0-30.0) sec Sodium 136 L (137-145) mmol/L Glucose 419 H (74-99) mg/dL POC Glucose (mg/dL) (75-99) mg/dL Alkaline Phosphatase 135 H (38-126) U/L Troponin I 0.258 H* (0.000-0.034) ng/mL Total Protein 5.2 L (6.3-8.2) g/dL Albumin 3.1 L (3.5-5.0) g/dL 10/27/17 10/27/17 10/27/17 Range/Units 00:40 03:21 06:15 Hgb (13.0-17.5) gm/dL Hct (39.0-53.0) % MCV (80.0-100.0) fL RDW (11.5-15.5) % APTT 18.9 L (22.0-30.0) sec Sodium (137-145) mmol/L Glucose (74-99) mg/dL POC Glucose (mg/dL) 360 H (75-99) mg/dL Alkaline Phosphatase (38-126) U/L Troponin I 0.284 H* (0.000-0.034) ng/mL Total Protein (6.3-8.2) g/dL Albumin (3.5-5.0) g/dL Thrombosis Risk Factor Assmnt - DVT/VTE Prophylaxis DVT/VTE Prophylaxis: Pharmacologic Prophylaxis ordered - Choose All That Apply Any of the Below Risk Factors Present?: Yes Each Factor Represents 1 point: Age 41-60 years, Obesity (BMI >25) Other Risk Factors: No Thrombosis Risk Factor Assessment Total Risk Factor Score: 2 Thrombosis Risk Factor Assessment Level: Low Risk Assessment and Plan Assessment: Shortness of breath secondary to CHF exacerbation Acute on chronic CHF with systolic dysfunction Elevated troponin level. Likely type II OH Ischemic cardio myopathy. Status post AICD placement biventricular coronary artery disease with history of multiple stents in the past. Uncontrolled diabetes for type II with hyperglycemia. His B A1c 10.8 in June 2017 Obstructive sleep apnea not on CPAP at home History of CVA/TIA GERD Hyperlipidemia Hypertensive cardio versus a disease History of OH osteoarthritis Diabetic neuropathy bilateral hands and feet Chronic back pain Depression with history of suicide attempts Diabetic gastroparesis History of migraine headaches Hiatal hernia and peptic ulcer disease History of alcohol abuse and marijuana use DVT prophylaxis Patient will be continued on Lasix 40 mg twice a day and also continue with the aspirin and statins, metoprolol and lisinopril. Patient be continued on hypoglycemic medications and discussed the patient regarding starting on insulin. We will continue the home medications and follow closely. Cardiology is on board. Further recommendations based on the clinical course. Prognosis is guarded with multiple medical problems and comorbid conditions. Time with Patient: Greater than 30
--- NOTE | 2017-10-27 15:29 | P.CRDCN ---
History of Present Illness History of present illness: Mr. Dunham is a pleasant 41-year-old female past medical history significant for coronary artery disease s/p multiple angioplasties, systolic heart failure with most recent documented EF 40-45%, diabetes mellitus, GERD, hypertension, dyslipidemia, sleep apnea, ischemic cardiomyopathy s/p AICD, gastroparesis, anxiety, depression and PTSD. He follows with Dr. Peres out of [facility]. We have been asked to see him in consultation for shortness of breath. He states for the last 2 days he has been increasingly short of breath and wheezing. He states his shortness of breath has been worse with exertion. He would use his inhaler and the breathing wouldn't get any better. This went off and on without improvement so he came in for evaluation. He denies associated chest pain, palpitations, nausea, vomiting, diaphoresis or dizziness. Denies PND or orhopnea. He has been initiated an IV Lasix since admission and states his breathing has improved tremendously. He has been up walking in the halls with no further shortness of breath. Recently in July of this year he presented to the hospital with chest pain and was transferred to [facility]. He states he was taken to the laborer rags at that time and had balloon angioplasty. EKG reveals atrial sensed ventricular paced rhythm. Chest xray is negative for an acute cardiopulmonary process. Laboratory data reviewed, hemoglobin 11.1, platelets 264, sodium 136, potassium 4.1, creatinine 0.8, troponin 0.258, 0.284, 0.271. ProBNP 3460. Current cardiac medications include hydralazine 25 mg twice a day, Aldactone 12.5 mg daily, rosuvastatin 40 mg daily, Ranexa 1000 mg twice a day, Mysoline 100 mg twice a day, Effient 10 mg daily, Lopressor 75 mg by mouth twice a day, lisinopril 2.5 mg daily, Imdur 30 mg daily, Lasix 40 mg daily, and aspirin 81 mg daily. Review of Systems At the time of my exam: CONSTITUTIONAL: Denies fever. Denies chills. EYES: Denies blurred vision. Denies vision changes. Denies eye pain. EARS, NOSE, MOUTH & THROAT: Denies headache. Denies sore throat. Denies ear pain. CARDIOVASCULAR: Denies chest pain. Denies shortness of breath. Denies orthopnea. Denies PND. Denies palpitations. RESPIRATORY: Denies cough. GASTROINTESTINAL: Denies abdominal pain. Denies diarrhea. Denies constipation. Denies nausea. Denies vomiting. MUSCULOSKELETAL: Denies myalgias. INTEGUMENTARY: Denies pruitis. Denies rash. NEUROLOGIC: Denies numbness. Denies tingling. Denies weakness. PSYCHIATRIC: Denies anxiety. Denies depression. ENDOCRINE: Denies fatigue. Denies weight change. Denies polydipsia. Denies polyurina. GENITOURINARY: Denies burning, hematuria or urgency with micturation. HEMATOLOGIC: Denies history of anemia. Denies bleeding. Past Medical History Past Medical History: Asthma, Coronary Artery Disease (CAD), Chest Pain / Angina , Heart Failure, CVA/TIA, Diabetes Mellitus, GERD/Reflux, Hyperlipidemia, Hypertension, Myocardial Infarction (WI), Osteoarthritis (OA), Pneumonia, Skin Disorder, Sleep Apnea/CPAP/BIPAP Additional Past Medical History / Comment(s): multiple vessel CAD, ischemic cardiomyopathy, diabetic neuropathy bilateral hands and feet, hypertensive cardiovascular disease, SHELIA with no device, chronic gastritis, degenerative disc disease, chronic back pain, depression with hx of suicide attempts, gastroparesis, psoriasis, UTI, migraines, TIA, PUD, hiatal hernia, L rotator cuff tear, bronchitis, pseudoaneurysm L groin post procedure. Last Myocardial Infarction Date:: May 2017 History of Any Multi-Drug Resistant Organisms: MRSA Date of last positivie culture/infection: 06/09/16 MDRO Source:: face Past Surgical History: AICD, Appendectomy, Cholecystectomy, Heart Catheterization With Stent, Hernia Repair Additional Past Surgical History / Comment(s): Pt has had multiple cardiac procedures- caths/stents/PTCA, last stent [facility] at [facility] - May 2017, [place], R inguinal hernia repair, umbilical hernia repair, right orchiectomy due to necrosis, right hand surgery r/t injury, colonoscopy, cystoscopy ( scraped bladder parrish) Past Anesthesia/Blood Transfusion Reactions: No Reported Reaction Additional Past Anesthesia/Blood Transfusion Reaction / Comment(s): . Date of Last Stent Placement:: 05/25/2017 Type of Cardiac Device: Biventricular Pacemaker, AICD Device Placement Date:: 09/19/15 Past Psychological History: Anxiety, Depression, PTSD Additional Psychological History / Comment(s): Several suicide attempts with use of insulin. PTSD - in 2000 his 3mo old son in his arms (born 2 months premature). Pt states his depression is stable at this time and he denies any suicidal thoughts or plans. He is independent. Pt lives at home with his . Pt drives and he is indp at home. Smoking Status: Never smoker Past Alcohol Use History: None Reported Additional Past Alcohol Use History / Comment(s): Past alcohol abuse - pt states he quit drinking 7yrs ago. Past Drug Use History: None Reported Additional Drug Use History / Comment(s): Pt has smoked marijuana in the past - last smoked in 1999. - Past Family History Mother Family Medical History: Coronary Artery Disease (CAD), Myocardial Infarction (WI ) Additional Family Medical History / Comment(s): 7 WI and faulty heart valve. Pt does not know the age when mother had her WI's. Father History Unknown: Yes Additional Family Medical History / Comment(s): Does not know who father is. Brother(s) Family Medical History: Cancer, Congestive Heart Failure (CHF), Myocardial Infarction (WI) Additional Family Medical History / Comment(s): Parkinsons. Pt does not know at what age his brother had an WI. Patient's other brother has lung CA Patient has Family Medical History: No Reported History Additional Family Medical History / Comment(s): There is a strong family history for heart disease, hypertension, and diabetes. Medications and Allergies Home Medications Medication Instructions Recorded Confirmed Type metFORMIN HCL 1,000 mg PO AC-BID 07/03/15 10/27/17 History Glimepiride 4 mg PO AC-BID 03/10/16 10/27/17 History Cholecalciferol (Vitamin D3) 2,000 unit PO DAILY 11/07/16 10/27/17 History [Vitamin D3] Linagliptin [Tradjenta] 5 mg PO DAILY 12/19/16 10/27/17 History Aspirin 81 mg PO DAILY chew 07/27/17 10/27/17 Rx Furosemide [Lasix] 40 mg PO DAILY tab 07/27/17 10/27/17 Rx Gabapentin [Neurontin] 400 mg PO TID cap 07/27/17 10/27/17 Rx Isosorbide Mononitrate ER [Imdur] 30 mg PO DAILY tab.er.24h 07/27/17 10/27/17 Rx Lisinopril [Zestril] 2.5 mg PO DAILY tab 07/27/17 10/27/17 Rx Nitroglycerin Sl Tabs [Nitrostat] 0.4 mg SUBLINGUAL Q5M PRN tab 07/27/17 Rx Pantoprazole [Protonix] 40 mg PO BID tablet. 07/27/17 10/27/17 Rx Prasugrel [Effient] 10 mg PO HS tab 07/27/17 10/27/17 Rx Primidone [Mysoline] 100 mg PO BID tab 07/27/17 10/27/17 Rx Sertraline [Zoloft] 200 mg PO DAILY tab 07/27/17 10/27/17 Rx ARIPiprazole [ARIPiprazole Odt] 15 mg PO DAILY 10/27/17 10/27/17 History Acarbose 50 mg PO TID 10/27/17 10/27/17 History Albuterol Inhaler [Ventolin Hfa 2 puff INHALATION RT-Q4H PRN 10/27/17 10/27/17 History Inhaler] Baclofen [Lioresal] 10 mg PO AC-TID 10/27/17 10/27/17 History Loperamide [Imodium] 2 mg PO BID 10/27/17 10/27/17 History Loperamide [Imodium] 2 mg PO DAILY PRN 10/27/17 10/27/17 History Metoprolol Tartrate [Lopressor] 75 mg PO BID 10/27/17 10/27/17 History Ondansetron [Zofran] 4 mg PO BID PRN 10/27/17 10/27/17 History Ranitidine HCl 300 mg PO DAILY 10/27/17 10/27/17 History Ranolazine [Ranexa] 1,000 mg PO Q12H 10/27/17 10/27/17 History Rosuvastatin Calcium [Crestor] 40 mg PO HS 10/27/17 10/27/17 History Spironolactone [Aldactone] 12.5 mg PO DAILY 10/27/17 10/27/17 History Sucralfate [Carafate] 1 gm PO ACHS 10/27/17 10/27/17 History hydrALAZINE HCL [Apresoline] 25 mg PO AC-BID 10/27/17 10/27/17 History Allergies Allergy/AdvReac Type Severity Reaction Status Date / Time erythromycin base Allergy Severe Rash/Hives Verified 10/27/17 08:56 [Erythromycin Base] cephalexin monohydrate Allergy Unknown Rash/Hives Verified 10/27/17 08:56 [From Keflex] codeine Allergy Unknown Unknown Verified 10/27/17 08:56 meclizine Allergy Unknown Unknown Verified 10/27/17 08:56 Penicillins Allergy Unknown Rash/Hives Verified 10/27/17 08:56 shellfish derived Allergy Unknown Anaphylaxis Verified 10/27/17 08:56 Fish Containing Products Allergy Anaphylaxis Verified 10/27/17 08:56 [Fish] Iodinated Contrast- Oral and Allergy Anaphylaxis Verified 10/27/17 08:56 IV Dye naproxen AdvReac Unknown Compromises Verified 10/27/17 08:56 Kidney Function atorvastatin calcium AdvReac Myalgia Verified 10/27/17 08:56 [From Lipitor] hydrocodone [From [place]] AdvReac Rapid Verified 10/27/17 08:56 Heart Rate Physical Exam Vitals: Vital Signs Temp Pulse Pulse Resp BP BP Pulse Ox 10/27/17 11:29 90 16 125/69 97 10/27/17 11:15 96 10/27/17 11:08 96 10/27/17 08:45 98 F 98 16 127/72 96 10/27/17 05:30 101 H 17 10/27/17 05:29 97.0 F L 101 H 17 136/72 96 10/27/17 04:31 98.8 F 97 18 147/105 98 10/27/17 02:42 90 18 110/71 100 10/27/17 00:45 98 98 18 99 10/27/17 00:23 97.8 F 99 17 133/87 96 Intake and Output 10/27/17 10/27/17 10/27/17 06:59 14:59 22:59 Intake Total 180 444 Balance 180 444 Intake: Oral 180 444 Other: Weight 108.862 kg Blood pressure 125/69 heart rate 90 afebrile maintaining oxygen saturation on room air GENERAL: This is a 41-year-old male in no apparent distress at the time of my examination. HEENT: Head is atraumatic, normocephalic. Pupils are equal, round. Sclerae anicteric. Conjunctivae are clear. Mucous membranes of the mouth are moist. Neck is supple. There is no jugular venous distention. No carotid bruit is heard. LUNGS: Clear to auscultation no wheezes, rales or rhonchi. No chest wall tenderness is noted on palpation or with deep breathing. HEART: Regular rate and rhythm without murmurs, rubs or gallops. S1 and S2 heard. ABDOMEN: Soft, nontender. Bowel sounds are heard. No organomegaly noted. EXTREMITIES: Trace bilateral lower extremity nonpitting edema and no calf tenderness noted. VASCULAR: Radial and dorsalis pedis pulses palpated, no evidence of clubbing. NEUROLOGIC: Patient is awake, alert and oriented x3. Results 10/27/17 00:40 10/27/17 00:40 Cardiac Enzymes 10/27/17 10/27/17 10/27/17 Range/Units 00:40 00:40 03:21 AST 23 (17-59) U/L CK-MB (CK-2) 1.0 (0.0-2.4) ng/mL Troponin I 0.258 H* 0.284 H* (0.000-0.034) ng/mL 10/27/17 Range/Units 10:56 AST (17-59) U/L CK-MB (CK-2) 0.8 (0.0-2.4) ng/mL Troponin I 0.271 H* (0.000-0.034) ng/mL Coagulation 10/27/17 Range/Units 00:40 PT 9.8 (9.0-12.0) sec APTT 18.9 L (22.0-30.0) sec CBC 10/27/17 Range/Units 00:40 WBC 5.2 (3.8-10.6) k/uL RBC 4.43 (4.30-5.90) m/uL Hgb 11.1 L (13.0-17.5) gm/dL Hct 35.4 L (39.0-53.0) % Plt Count 264 (150-450) k/uL Comprehensive Metabolic Panel 10/27/17 Range/Units 00:40 Sodium 136 L (137-145) mmol/L Potassium 4.1 (3.5-5.1) mmol/L Chloride 101 (98-107) mmol/L Carbon Dioxide 24 (22-30) mmol/L BUN 17 (9-20) mg/dL Creatinine 0.80 (0.66-1.25) mg/dL Glucose 419 H (74-99) mg/dL Calcium 9.0 (8.4-10.2) mg/dL AST 23 (17-59) U/L ALT 54 (21-72) U/L Alkaline Phosphatase 135 H (38-126) U/L Total Protein 5.2 L (6.3-8.2) g/dL Albumin 3.1 L (3.5-5.0) g/dL Current Medications Generic Name Dose Route Start Last Admin Trade Name Freq PRN Reason Stop Dose Admin Acetaminophen 650 mg 10/27/17 04:33 Tylenol Tab PO Q6HR PRN Mild Pain or Fever > 100.5 Albuterol Sulfate 2.5 mg 10/27/17 04:33 10/27/17 11:07 Ventolin Nebulized INHALATION 2.5 mg RT-Q4H PRN Administration Shortness Of Breath Aripiprazole 15 mg 10/27/17 09:00 10/27/17 12:22 Abilify PO 15 mg DAILY JAKE Administration Aspirin 81 mg 10/27/17 09:00 10/27/17 12:25 Aspirin PO 81 mg DAILY JAKE Administration Famotidine 40 mg 10/27/17 09:00 10/27/17 12:24 Pepcid PO 40 mg QAM JAKE Administration Furosemide 40 mg 10/27/17 09:00 10/27/17 15:00 Lasix IV 10/28/17 07:00 40 mg BID JAEK Administration Furosemide 40 mg 10/28/17 09:00 Lasix PO BID@0900,1600 JAKE Gabapentin 400 mg 10/27/17 09:00 10/27/17 14:58 Neurontin PO 400 mg TID JAKE Administration Glimepiride 4 mg 10/27/17 07:30 10/27/17 06:31 Amaryl PO 4 mg AC-BID JAKE Administration Heparin Sodium (Porcine) 5,000 unit 10/27/17 16:00 Heparin SQ Q8HR JAKE Isosorbide Mononitrate 30 mg 10/27/17 09:00 10/27/17 12:35 Imdur PO 30 mg DAILY JAKE Administration Linagliptin 5 mg 10/27/17 21:00 Tradjenta PO HS JAKE Lisinopril 2.5 mg 10/27/17 09:00 10/27/17 12:34 Zestril PO 2.5 mg DAILY JAKE Administration Metformin HCl 1,000 mg 10/27/17 07:30 10/27/17 06:31 Glucophage PO 1,000 mg AC-BID JAKE Administration Metoprolol Tartrate 100 mg 10/27/17 14:08 Lopressor PO BID JAKE Nitroglycerin 0.5 inch 10/27/17 09:00 10/27/17 13:47 Nitro-Bid Oint TOPICAL Not Given QID JAKE Dulaglutide [ 1.5 mg 11/01/17 04:33 Trulicity] 1.5 Mg SQ OROZCO JAKE Pantoprazole Sodium 40 mg 10/27/17 09:00 10/27/17 12:34 Protonix PO 40 mg BID JAKE Administration Prasugrel 10 mg 10/27/17 21:00 Effient PO HS JAKE Primidone 100 mg 10/27/17 09:00 10/27/17 12:25 Mysoline PO 100 mg BID JAKE Administration Ranolazine 1,000 mg 10/27/17 09:00 10/27/17 12:25 Ranexa PO 1,000 mg BID JAKE Administration Sertraline HCl 200 mg 10/27/17 09:00 10/27/17 12:26 Zoloft PO 200 mg DAILY JAKE Administration Sodium Chloride 10 ml 10/27/17 09:00 10/27/17 12:26 Saline Flush IV 10 ml BID JAKE Administration Intake and Output 10/27/17 10/27/17 10/27/17 06:59 14:59 22:59 Intake Total 180 444 Balance 180 444 Intake: Oral 180 444 Other: Weight 108.862 kg 10/27/17 00:40 10/27/17 00:40 Assessment and Plan Assessment: ASSESSMENT 1. Acute on chronic systolic heart failure exacerbation, has diureses well and breathing has greatly improved. 2. Mild troponin elevation, flattened. Not indicative of an acute coronary event. 3. History of coronary artery disease with multiple angioplasty 4. Ischemic cardiomyopathy s/p AICD placement 5. Hypertension 6. Dyslipidemia 7. Gastroesophageal reflux disease 8. Diabetes mellitus PLAN Patient is to get another dose of IV Lasix this afternoon. Increase activity and ambulation. Stable for discharge this evening. He should go home on Lasix 40 mg twice a day. Follow-up with Dr. Peres upon discharge. Thank you kindly for this consultation. Nurse Practitioner note has been reviewed, I agree with a documented findings and plan of care. Patient was seen and examined.
[2017-10-27 16:49] LABS: Glucose,Whole Blood 298 mg/dL (75-99)
[2017-10-27] MEDS: HEPARIN SODIUM,PORCINE 5,000 UNIT/ML 1 ML VIAL SQ SCH ×2 (17:00→23:10)
[2017-10-27 17:51] LABS: Creatine Kinase MB 0.6 ng/mL (0.0-2.4)
[2017-10-27 17:56] LABS: Troponin I 0.303 ng/mL (0.000-0.034)
[2017-10-27] MEDS: METOPROLOL TARTRATE 50 MG TAB PO SCH (21:00)
[2017-10-27] MEDS ORDERED: ATORVASTATIN 80 MG TAB PO SCH ×2 (21:00)
[2017-10-27] MEDS ORDERED: PRASUGREL 10 MG TAB PO SCH (21:00)
[2017-10-27] MEDS ORDERED: LINAGLIPTIN 5 MG TABLET PO SCH (21:00)
[2017-10-27 21:13] LABS: Glucose,Whole Blood 222 mg/dL (75-99)
[2017-10-27] MEDS: INSULIN ASPART 100 UNIT/ML 1 ML 10 ML VIAL SQ SCH (21:22)
[2017-10-27 23:35] LABS: Glucose,Whole Blood 227 mg/dL (75-99)
[2017-10-28 01:37] LABS: Hemoglobin A1C 13.5 % (4.0-6.0)
[2017-10-28 07:23] LABS: Glucose,Whole Blood 219 mg/dL (75-99)
[2017-10-28] MEDS: HEPARIN SODIUM,PORCINE 5,000 UNIT/ML 1 ML VIAL SQ SCH (07:30)
[2017-10-28] MEDS: GLIMEPIRIDE 4 MG TAB PO SCH (07:30)
[2017-10-28] MEDS: INSULIN ASPART 100 UNIT/ML 1 ML 10 ML VIAL SQ SCH (07:31)
[2017-10-28] MEDS: metFORMIN 500 MG TAB PO SCH (07:31)
[2017-10-28 07:32] VITALS: BP 106/67; PULSE 71; RESP 18; TEMP 98.4
[2017-10-28] MEDS: ASPIRIN 81 MG PO SCH (08:45)
[2017-10-28] MEDS: FAMOTIDINE 20 MG TAB PO SCH (08:46)
[2017-10-28] MEDS: GABAPENTIN 400 MG CAP PO SCH (08:49)
[2017-10-28] MEDS: ISOSORBIDE MONONITRATE ER 30 MG TAB.ER.24H PO SCH (08:50)
[2017-10-28] MEDS: METOPROLOL TARTRATE 50 MG TAB PO SCH (08:50)
[2017-10-28] MEDS: PANTOPRAZOLE 40 MG TABLET PO SCH (08:50)
[2017-10-28] MEDS: NITROGLYCERIN OINT 1 INCH/GM PACKET TOPICAL SCH (08:50)
[2017-10-28] MEDS: LISINOPRIL 2.5 MG TAB PO SCH (08:50)
[2017-10-28] MEDS: SERTRALINE 100 MG TAB PO SCH (08:51)
[2017-10-28] MEDS: RANOLAZINE 500 MG TAB.ER.12H PO SCH (08:52)
[2017-10-28] MEDS ORDERED: FUROSEMIDE 40 MG TAB PO SCH (09:00)
[2017-10-28] MEDS: ARIPiprazole 15 MG TAB PO SCH (09:55)
[2017-10-28] MEDS: PRIMIDONE 50 MG TAB PO SCH (10:03)
--- NOTE | 2017-10-28 22:29 | P.DS ---
Providers Date of admission: 10/27/17 04:33 Expected date of discharge: 10/28/17 Attending physician: Safia Clay Consults: 10/27/17 04:31 Consult Physician Routine Consulting Provider: Gerson Dewey Consult Reason/Comments: CHF exacerbation. Elevated troponin Do you want consulting provider notified?: Yes Primary care physician: [facility] Hospital Course: Discharge diagnosis Shortness of breath secondary to CHF exacerbation Acute on chronic CHF with systolic dysfunction Elevated troponin level. 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 Status post AICD placement biventricular coronary artery disease with history of multiple stents in the past. Uncontrolled diabetes for type II with hyperglycemia. His B A1c 10.8 in June 2017. Currently at 13.5 Obstructive sleep apnea not on CPAP at home History of CVA/TIA GERD Hyperlipidemia Hypertensive cardio versus a disease History of IN osteoarthritis Diabetic neuropathy bilateral hands and feet Chronic back pain Depression with history of suicide attempts Diabetic gastroparesis History of migraine headaches Hiatal hernia and peptic ulcer disease History of alcohol abuse and marijuana use DVT prophylaxis Hospital course Patient is a 41-year-old male with a known history of ischemic cardiomyopathy status post AICD placement, coronary artery disease with history of multiple prior stents, uncontrolled diabetes type 2 [id number], obstructive sleep apnea on CPAP and multiple other medical problems including morbid obesity came to ER with complaints of shortness of breath getting worse for the past few days. Patient is also complaining of leg swelling and unable to lie flat without shortness of breath. Patient also woke up from sleep with shortness of breath. Patient was recently admitted to hospital with non-ST elevated IN about 3 months ago. Otherwise no complaints of fever or chills. No cough or sputum production. No nausea vomiting or abdominal pain. Chest x-ray showed slight increased lung markings compared to old exam. No gross heart failure. EKG showed atrial sensed ventricular paced rhythm. Troponin 0.284 and 0.271 CBG greater than 400 on admission. Patient was continued on Lasix 40 mg twice a day and also continue with the aspirin and statins, metoprolol and lisinopril. Patient be continued on hypoglycemic medications and discussed the patient regarding starting on insulin. Patient says that he had a suicide attempt when he was taking insulin and was discontinued by his primary care physician and is not willing to start back on insulin at this time. Patient was recommended to follow-up with primary care physician on coming Thursday to restart on insulin dose. Patient was seen by cardiology and recommended to continue the current management and home dose of Lasix and metoprolol has been increased. Blood pressure is fairly controlled now. Heart rate is controlled as well. Otherwise patient is ambulating in the hallway and denied any complaints of chest pain or shortness of breath. No complaints of leg swelling has been dissolved. Otherwise patient is stable to be discharged home. Patient is eager to be discharged home. PHYSICAL EXAMINATION: Patient is lying in the bed comfortably, no acute distress, awake alert and oriented.. HEENT: Normocephalic. Neck is supple. Pupils reactive. Nostrils clear. Oral cavity is moist. Ears reveal no drainage. Neck reveals no JVD, carotid bruits, or thyromegaly. CHEST EXAMINATION: Trachea is central. Symmetrical expansion. Lung hendrix clear to auscultation and percussion. CARDIAC: Normal S1, S2 with no gallops. No murmurs ABDOMEN: Soft. Bowel sounds normal. No organomegaly. No abdominal bruits. Extremities: reveal no edema. No clubbing or cyanosis Neurologically awake, alert, oriented x3 with well-coordinated movements. No focal deficits noted Skin: No rash or skin lesions. Psychiatric: Coperative. Nonsuicidal Musculoskeletal: No joint swelling or deformity. Normal range of motion. Vital Signs - 24 hr 10/27/17 10/27/17 10/27/17 23:00 23:03 23:30 Temperature 98.7 F Pulse Rate [ 71 65 Card Reader ] Pulse Rate [ Pulse Oximetery ] Respiratory 17 20 Rate Blood Pressure 95/55 96/59 [Left Arm] Blood Pressure [Right Arm] O2 Sat by Pulse 96 Oximetry 10/28/17 10/28/17 10/28/17 01:03 03:50 06:59 Temperature 98.4 F Pulse Rate [ Card Reader ] Pulse Rate [ 63 71 Pulse Oximetery ] Respiratory 18 16 18 Rate Blood Pressure [Left Arm] Blood Pressure 107/67 106/67 [Right Arm] O2 Sat by Pulse 100 96 Oximetry Total time taken greater than 35 minutes including 18 minutes for counseling and coordination of care. Patient Condition at Discharge: Fair Plan - Discharge Summary New Discharge Prescriptions: New Furosemide [Lasix] 40 mg PO BID@0900,1600 #60 tab Metoprolol Tartrate [Lopressor] 100 mg PO BID #60 tab Continue metFORMIN HCL 1,000 mg PO AC-BID Glimepiride 4 mg PO AC-BID Cholecalciferol (Vitamin D3) [Vitamin D3] 2,000 unit PO DAILY Linagliptin [Tradjenta] 5 mg PO DAILY Aspirin 81 mg PO DAILY chew Gabapentin [Neurontin] 400 mg PO TID cap Isosorbide Mononitrate ER [Imdur] 30 mg PO DAILY tab.er.24h Lisinopril [Zestril] 2.5 mg PO DAILY tab Nitroglycerin Sl Tabs [Nitrostat] 0.4 mg SUBLINGUAL Q5M PRN tab PRN Reason: Chest Pain Pantoprazole [Protonix] 40 mg PO BID tablet. Prasugrel [Effient] 10 mg PO HS tab Primidone [Mysoline] 100 mg PO BID tab Sertraline [Zoloft] 200 mg PO DAILY tab Spironolactone [Aldactone] 12.5 mg PO DAILY Albuterol Inhaler [Ventolin Hfa Inhaler] 2 puff INHALATION RT-Q4H PRN PRN Reason: Shortness Of Breath Ranitidine HCl 300 mg PO DAILY Rosuvastatin Calcium [Crestor] 40 mg PO HS Acarbose 50 mg PO TID Ranolazine [Ranexa] 1,000 mg PO Q12H Baclofen [Lioresal] 10 mg PO AC-TID Ondansetron [Zofran] 4 mg PO BID PRN PRN Reason: Nausea ARIPiprazole [ARIPiprazole Odt] 15 mg PO DAILY Loperamide [Imodium] 2 mg PO DAILY PRN PRN Reason: Diarrhea Loperamide [Imodium] 2 mg PO BID Discontinued Furosemide [Lasix] 40 mg PO DAILY tab Sucralfate [Carafate] 1 gm PO ACHS hydrALAZINE HCL [Apresoline] 25 mg PO AC-BID Metoprolol Tartrate [Lopressor] 75 mg PO BID Discharge Medication List metFORMIN HCL 1,000 mg PO AC-BID 07/03/15 [History] Glimepiride 4 mg PO AC-BID 03/10/16 [History] Cholecalciferol (Vitamin D3) [Vitamin D3] 2,000 unit PO DAILY 11/07/16 [History] Linagliptin [Tradjenta] 5 mg PO DAILY 12/19/16 [History] Aspirin 81 mg PO DAILY chew 03/05/18 [Rx] Gabapentin [Neurontin] 400 mg PO TID cap 07/27/17 [Rx] Isosorbide Mononitrate ER [Imdur] 30 mg PO DAILY tab.er.24h 07/27/17 [Rx] Lisinopril [Zestril] 2.5 mg PO DAILY tab 07/27/17 [Rx] Nitroglycerin Sl Tabs [Nitrostat] 0.4 mg SUBLINGUAL Q5M PRN tab 07/27/17 [Rx] Pantoprazole [Protonix] 40 mg PO BID tablet.dr 07/27/17 [Rx] Prasugrel [Effient] 10 mg PO HS tab 07/27/17 [Rx] Primidone [Mysoline] 100 mg PO BID tab 07/27/17 [Rx] Sertraline [Zoloft] 200 mg PO DAILY tab 07/27/17 [Rx] ARIPiprazole [ARIPiprazole Odt] 15 mg PO DAILY 10/27/17 [History] Acarbose 50 mg PO TID 10/27/17 [History] Albuterol Inhaler [Ventolin Hfa Inhaler] 2 puff INHALATION RT-Q4H PRN 10/27/17 [ History] Baclofen [Lioresal] 10 mg PO AC-TID 10/27/17 [History] Loperamide [Imodium] 2 mg PO BID 10/27/17 [History] Loperamide [Imodium] 2 mg PO DAILY PRN 10/27/17 [History] Ondansetron [Zofran] 4 mg PO BID PRN 10/27/17 [History] Ranitidine HCl 300 mg PO DAILY 10/27/17 [History] Ranolazine [Ranexa] 1,000 mg PO Q12H 10/27/17 [History] Rosuvastatin Calcium [Crestor] 40 mg PO HS 10/27/17 [History] Spironolactone [Aldactone] 12.5 mg PO DAILY 10/27/17 [History] Furosemide [Lasix] 40 mg PO BID@0900,1600 #60 tab 10/28/17 [Rx] Metoprolol Tartrate [Lopressor] 100 mg PO BID #60 tab 10/28/17 [Rx] Follow up Appointment(s)/Referral(s): Rocky Peres DO [REFERRING] - 11/13/17 10:30 am (Office is closed. Please call to schedule appointment. ) Junie New MD [Primary Care Provider] - 10/30/17 8:30 am (Office is closed. Please call to schedule appointment.) Patient Instructions/Handouts: Heart Failure (DC) Discharge Disposition: HOME SELF-CARE
[2017-11-01] MEDS ORDERED: Dulaglutide [Trulicity] 1.5 MG SQ SCH (04:33)
== END 2017-10-28 10:34 | disposition home or self-care (01) | DRG 282 ==
LOC: EC 00:18 → 6SEL 04:33 → 3SUR 23:38
PROVIDERS: ADMIT Hospitalist; ATTEND Hospitalist
DX: I11.0 Hypertensive heart disease with heart failure (principal); I21.A1 Myocardial infarction type 2; I50.23 Acute on chronic systolic (congestive) heart failure; E11.43 Type 2 diabetes mellitus with diabetic autonomic (poly)neuropathy; E11.65 Type 2 diabetes mellitus with hyperglycemia; E78.5 Hyperlipidemia, unspecified; F32.9 Major depressive disorder, single episode, unspecified; F43.10 Post-traumatic stress disorder, unspecified; G47.33 Obstructive sleep apnea (adult) (pediatric); G89.29 Other chronic pain; I25.10 Atherosclerotic heart disease of native coronary artery without angina pectoris; I25.2 Old myocardial infarction; I25.5 Ischemic cardiomyopathy; J45.909 Unspecified asthma, uncomplicated; K21.9 Gastro-esophageal reflux disease without esophagitis; K27.9 Peptic ulcer, site unspecified, unspecified as acute or chronic, without hemorrhage or perforation; K31.84 Gastroparesis; K44.9 Diaphragmatic hernia without obstruction or gangrene; M54.9 Dorsalgia, unspecified; M19.90 Unspecified osteoarthritis, unspecified site; Z79.82 Long term (current) use of aspirin; Z79.84 Long term (current) use of oral hypoglycemic drugs; Z79.899 Other long term (current) drug therapy; Z82.0 Family history of epilepsy and other diseases of the nervous system; Z82.49 Family history of ischemic heart disease and other diseases of the circulatory system; Z83.3 Family history of diabetes mellitus; Z86.73 Personal history of transient ischemic attack (TIA), and cerebral infarction without residual deficits; Z91.5 Personal history of self-harm; Z95.810 Presence of automatic (implantable) cardiac defibrillator; Z90.49 Acquired absence of other specified parts of digestive tract; Z88.1 Allergy status to other antibiotic agents; Z91.041 Radiographic dye allergy status; Z88.5 Allergy status to narcotic agent; Z88.0 Allergy status to penicillin; Z91.013 Allergy to seafood
CPT/HCPCS: 36415; 71046; 80053; 82550; 82553; 83036; 83735; 83880; 84484; 85025; 85610; 85730; 93005; 94640; 96374; 99285

== ENCOUNTER 2017-11-14 19:52 | Inpatient (IN) | payer MEDICARE, OTHER ==
[2017-11-14] MEDS ORDERED: ASPIRIN 325 MG TAB PO STA (20:46)
[2017-11-14] MEDS ORDERED: MORPHINE SULFATE 2 MG/ML SYRINGE IVP STA (20:46)
[2017-11-14] MEDS ORDERED: ONDANSETRON 4 MG/2 ML VIAL IVP STA (20:47)
--- NOTE | 2017-11-14 20:50 | ED ---
General Adult HPI - General Chief complaint: Chest Pain Stated complaint: Chest Pain Time Seen by Provider: 11/14/17 20:09 Source: patient, RN notes reviewed, old records reviewed Mode of arrival: wheelchair Limitations: no limitations - History of Present Illness Initial comments: 41-year-old male presenting for evaluation of chest pain. Patient has significant cardiac history including multiple stents, recent coronary heart cath, pacemaker placement. Patient follows at an outside hospital with cardiology. He states that yesterday throughout the day he had chest pressure, he was seen by his special education tutor was told to take his isosorbide. Today developed worsening pain into his bilateral upper extremities. Pain is substernal, chest pressure and pain. Patient has been nauseous, and diaphoretic. No abdominal pain. No significant vomiting. Pain is typical of his previous [place]. - Related Data Home Medications Medication Instructions Recorded Confirmed metFORMIN HCL 1,000 mg PO AC-BID 07/03/15 10/27/17 Glimepiride 4 mg PO AC-BID 03/10/16 10/27/17 Cholecalciferol (Vitamin D3) 2,000 unit PO DAILY 11/07/16 10/27/17 [Vitamin D3] Linagliptin [Tradjenta] 5 mg PO DAILY 12/19/16 10/27/17 ARIPiprazole [ARIPiprazole Odt] 15 mg PO DAILY 10/27/17 10/27/17 Acarbose 50 mg PO TID 10/27/17 10/27/17 Albuterol Inhaler [Ventolin Hfa 2 puff INHALATION RT-Q4H PRN 10/27/17 10/27/17 Inhaler] Baclofen [Lioresal] 10 mg PO AC-TID 10/27/17 10/27/17 Loperamide [Imodium] 2 mg PO BID 10/27/17 10/27/17 Loperamide [Imodium] 2 mg PO DAILY PRN 10/27/17 10/27/17 Ondansetron [Zofran] 4 mg PO BID PRN 10/27/17 10/27/17 Ranitidine HCl 300 mg PO DAILY 10/27/17 10/27/17 Ranolazine [Ranexa] 1,000 mg PO Q12H 10/27/17 10/27/17 Rosuvastatin Calcium [Crestor] 40 mg PO HS 10/27/17 10/27/17 Spironolactone [Aldactone] 12.5 mg PO DAILY 10/27/17 10/27/17 Previous Rx's Medication Instructions Recorded Aspirin 81 mg PO DAILY chew 07/27/17 Gabapentin [Neurontin] 400 mg PO TID cap 07/27/17 Isosorbide Mononitrate ER [Imdur] 30 mg PO DAILY tab.er.24h 07/27/17 Lisinopril [Zestril] 2.5 mg PO DAILY tab 07/27/17 Nitroglycerin Sl Tabs [Nitrostat] 0.4 mg SUBLINGUAL Q5M PRN tab 07/27/17 Pantoprazole [Protonix] 40 mg PO BID tablet.dr 07/27/17 Prasugrel [Effient] 10 mg PO HS tab 07/27/17 Primidone [Mysoline] 100 mg PO BID tab 07/27/17 Sertraline [Zoloft] 200 mg PO DAILY tab 07/27/17 Furosemide [Lasix] 40 mg PO BID@0900,1600 #60 tab 10/28/17 Metoprolol Tartrate [Lopressor] 100 mg PO BID #60 tab 10/28/17 Allergies Allergy/AdvReac Type Severity Reaction Status Date / Time erythromycin base Allergy Severe Rash/Hives Verified 11/14/17 20:03 [Erythromycin Base] cephalexin monohydrate Allergy Unknown Rash/Hives Verified 11/14/17 20:03 [From Keflex] codeine Allergy Unknown Unknown Verified 11/14/17 20:03 meclizine Allergy Unknown Unknown Verified 11/14/17 20:03 Penicillins Allergy Unknown Rash/Hives Verified 11/14/17 20:03 shellfish derived Allergy Unknown Anaphylaxis Verified 11/14/17 20:03 Fish Containing Products Allergy Anaphylaxis Verified 11/14/17 20:03 [Fish] Iodinated Contrast- Oral and Allergy Anaphylaxis Verified 11/14/17 20:03 IV Dye naproxen AdvReac Unknown Compromises Verified 11/14/17 20:03 Kidney Function atorvastatin calcium AdvReac Myalgia Verified 11/14/17 20:03 [From Lipitor] hydrocodone [From Bernice] AdvReac Rapid Verified 11/14/17 20:03 Heart Rate Review of Systems ROS Statement: Those systems with pertinent positive or pertinent negative responses have been documented in the HPI. ROS Other: All systems not noted in ROS Statement are negative. Past Medical History Past Medical History: Asthma, Coronary Artery Disease (CAD), Chest Pain / Angina , Heart Failure, CVA/TIA, Diabetes Mellitus, GERD/Reflux, Hyperlipidemia, Hypertension, Myocardial Infarction ([place]), Osteoarthritis (OA), Pneumonia, Skin Disorder, Sleep Apnea/CPAP/BIPAP Additional Past Medical History / Comment(s): multiple vessel CAD, ischemic cardiomyopathy, diabetic neuropathy bilateral hands and feet, hypertensive cardiovascular disease, SHELIA with no device, chronic gastritis, degenerative disc disease, chronic back pain, depression with hx of suicide attempts, gastroparesis, psoriasis, UTI, migraines, TIA, PUD, hiatal hernia, L rotator cuff tear, bronchitis, pseudoaneurysm L groin post procedure. 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 Date of Last Stent Placement:: 05/25/2017 Type of Cardiac Device: Biventricular Pacemaker, AICD Device Placement Date:: 09/19/15 Past Psychological History: Anxiety, Depression, PTSD Smoking Status: Never smoker Past Alcohol Use History: None Reported Past Drug Use History: None Reported - Past Family History Mother Family Medical History: Coronary Artery Disease (CAD), Myocardial Infarction ([place] ) Additional Family Medical History / Comment(s): 7 [place] and faulty heart valve. Pt does not know the age when mother had her [place]'s. Father History Unknown: Yes Additional Family Medical History / Comment(s): Does not know who father is. Brother(s) Family Medical History: Cancer, Congestive Heart Failure (CHF), Myocardial Infarction ([place]) Additional Family Medical History / Comment(s): Parkinsons. Pt does not know at what age his brother had an [place]. Patient's other brother has lung CA Patient has Family Medical History: No Reported History Additional Family Medical History / Comment(s): There is a strong family history for heart disease, hypertension, and diabetes. General Exam Limitations: no limitations General appearance: alert, in no apparent distress Head exam: Present: atraumatic, normocephalic Eye exam: Present: normal appearance, PERRL ENT exam: Present: normal exam Neck exam: Present: normal inspection. Absent: tenderness, meningismus Respiratory exam: Present: normal lung sounds bilaterally. Absent: respiratory distress, wheezes Cardiovascular Exam: Present: regular rate, normal rhythm GI/Abdominal exam: Present: soft. Absent: distended, tenderness Extremities exam: Absent: pedal edema, calf tenderness Neurological exam: Present: alert, oriented X3 Psychiatric exam: Present: normal affect, normal mood Skin exam: Present: warm, diaphoretic. Absent: cyanosis Course Vital Signs 11/14/17 11/14/17 19:59 21:02 Temperature 97.6 F Pulse Rate 122 H 118 H Respiratory 20 16 Rate Blood Pressure 149/107 157/85 O2 Sat by Pulse 98 95 Oximetry EKG Findings - EKG Comments: EKG Findings:: EKG: Atrial sensed ventricular paced rhythm, rate of 122, CA interval 156, QRS duration 112, QTC 447 Medical Decision Making - Medical Decision Making 41-year-old male with significant coronary artery disease presenting with chest pain. EKG shows atrial sensed ventricular paced rhythm. On exam patient is pale and diaphoretic. Workup reveals mild elevated BNP at 2000, and elevated troponin 0.054. Previous records are reviewed, patient does have troponin elevation at baseline. Given his symptoms he will be placed in observation for serial cardiac enzymes and cardiology consultation. - Lab Data Result diagrams: 11/14/17 20:32 11/14/17 20:32 Lab Results 11/14/17 11/14/17 11/14/17 Range/Units 20:32 20:32 20:32 WBC 7.2 (3.8-10.6) k/uL RBC 4.67 (4.30-5.90) m/uL Hgb 12.0 L (13.0-17.5) gm/dL Hct 37.1 L (39.0-53.0) % MCV 79.5 L (80.0-100.0) fL MCH 25.7 (25.0-35.0) pg MCHC 32.4 (31.0-37.0) g/dL RDW 16.6 H (11.5-15.5) % Plt Count 381 (150-450) k/uL Neutrophils % 66 % Lymphocytes % 26 % Monocytes % 4 % Eosinophils % 3 % Basophils % 1 % Neutrophils # 4.7 (1.3-7.7) k/uL Lymphocytes # 1.8 (1.0-4.8) k/uL Monocytes # 0.3 (0-1.0) k/uL Eosinophils # 0.2 (0-0.7) k/uL Basophils # 0.0 (0-0.2) k/uL Hypochromasia Moderate Anisocytosis Slight PT (9.0-12.0) sec INR (<1.2) APTT (22.0-30.0) sec Sodium 133 L (137-145) mmol/L Potassium 5.2 H (3.5-5.1) mmol/L Chloride 98 (98-107) mmol/L Carbon Dioxide 22 (22-30) mmol/L Anion Gap 13 mmol/L BUN 21 H (9-20) mg/dL Creatinine 1.20 (0.66-1.25) mg/dL Est GFR (CKD-EPI)AfAm 87 (>60 ml/min/1.73 sqM) Est GFR (CKD-EPI)NonAf 75 (>60 ml/min/1.73 sqM) Glucose 368 H (74-99) mg/dL Calcium 9.2 (8.4-10.2) mg/dL Magnesium 1.3 L (1.6-2.3) mg/dL Total Bilirubin 0.6 (0.2-1.3) mg/dL AST 19 (17-59) U/L ALT 32 (21-72) U/L Alkaline Phosphatase 134 H (38-126) U/L Total Creatine Kinase 67 (55-170) U/L CK-MB (CK-2) 1.5 (0.0-2.4) ng/mL CK-MB (CK-2) Rel Index 2.2 Troponin I 0.054 H* (0.000-0.034) ng/mL NT-Pro-B Natriuret Pep pg/mL Total Protein 6.2 L (6.3-8.2) g/dL Albumin 3.5 (3.5-5.0) g/dL 11/14/17 11/14/17 Range/Units 20:32 20:32 WBC (3.8-10.6) k/uL RBC (4.30-5.90) m/uL Hgb (13.0-17.5) gm/dL Hct (39.0-53.0) % MCV (80.0-100.0) fL MCH (25.0-35.0) pg MCHC (31.0-37.0) g/dL RDW (11.5-15.5) % Plt Count (150-450) k/uL Neutrophils % % Lymphocytes % % Monocytes % % Eosinophils % % Basophils % % Neutrophils # (1.3-7.7) k/uL Lymphocytes # (1.0-4.8) k/uL Monocytes # (0-1.0) k/uL Eosinophils # (0-0.7) k/uL Basophils # (0-0.2) k/uL Hypochromasia Anisocytosis PT 10.9 (9.0-12.0) sec INR 1.1 (<1.2) APTT 20.9 L (22.0-30.0) sec Sodium (137-145) mmol/L Potassium (3.5-5.1) mmol/L Chloride (98-107) mmol/L Carbon Dioxide (22-30) mmol/L Anion Gap mmol/L BUN (9-20) mg/dL Creatinine (0.66-1.25) mg/dL Est GFR (CKD-EPI)AfAm (>60 ml/min/1.73 sqM) Est GFR (CKD-EPI)NonAf (>60 ml/min/1.73 sqM) Glucose (74-99) mg/dL Calcium (8.4-10.2) mg/dL Magnesium (1.6-2.3) mg/dL Total Bilirubin (0.2-1.3) mg/dL AST (17-59) U/L ALT (21-72) U/L Alkaline Phosphatase (38-126) U/L Total Creatine Kinase (55-170) U/L CK-MB (CK-2) (0.0-2.4) ng/mL CK-MB (CK-2) Rel Index Troponin I (0.000-0.034) ng/mL NT-Pro-B Natriuret Pep 2200 pg/mL Total Protein (6.3-8.2) g/dL Albumin (3.5-5.0) g/dL Disposition Clinical Impression: Elevated troponin I level, Chest pain Disposition: ADMITTED IP TO THIS HOSP Condition: Stable Is patient prescribed a controlled substance at d/c from ED?: No Referrals: Junie New MD [Primary Care Provider] - 1-2 days Decision to Admit Reason: Admit from EC Decision Date: 11/14/17 Decision Time: 22:05
[2017-11-14 20:53] LABS: Anisocytosis Slight; Basophils % (A) 1 %; Eosinophils # (A) 0.2 k/uL (0-0.7); Eosinophils % (A) 3 %; HCT 37.1 % (39.0-53.0); Hypochromasia Moderate; Lymphocytes # (A) 1.8 k/uL (1.0-4.8); Lymphocytes % (A) 26 %; MCH 25.7 pg (25.0-35.0); MCHC 32.4 g/dL (31.0-37.0); MCV 79.5 fL (80.0-100.0); Mean Platelet Volume 6.5; Monocytes # (A) 0.3 k/uL (0-1.0); Monocytes % (A) 4 %; Neutrophils # (A) 4.7 k/uL (1.3-7.7); Neutrophils % (A) 66 %; Platelet Count 381 k/uL (150-450); RBC 4.67 m/uL (4.30-5.90); RDW 16.6 % (11.5-15.5); WBC 7.2 k/uL (3.8-10.6)
[2017-11-14] MEDS: NITROGLYCERIN SL TABS 0.4 MG TAB SUBLINGUAL PRN ×2 (20:54→21:05)
[2017-11-14 21:09] LABS: INR 1.1 (<1.2); Prothrombin Time 10.9 sec (9.0-12.0)
[2017-11-14 21:12] LABS: Albumin 3.5 g/dL (3.5-5.0); Calcium 9.2 mg/dL (8.4-10.2); Magnesium 1.3 mg/dL (1.6-2.3); Partial Thromboplastin Time 20.9 sec (22.0-30.0); Potassium 5.2 mmol/L (3.5-5.1); Total Bilirubin 0.6 mg/dL (0.2-1.3); Total Protein 6.2 g/dL (6.3-8.2)
[2017-11-14 21:24] LABS: Creatine Kinase MB 1.5 ng/mL (0.0-2.4)
[2017-11-14 21:25] LABS: Troponin I 0.054 ng/mL (0.000-0.034)
--- NOTE | 2017-11-14 21:30 | XR ---
EXAMINATION TYPE: XR chest 2V DATE OF EXAM: 11/14/2017 COMPARISON: 10/27/2017 HISTORY: 41-year-old male with chest pain TECHNIQUE: AP and lateral views FINDINGS: Hardware limits of normal in size. Aorta within normal limits. Diffuse interstitial prominence unchan ged. Left anterior chest wall generator with right atrial, right ventricular, and coronary sinus lead s. No eva consolidation or pleural effusion. IMPRESSION: Moderate diffuse interstitial prominence which may in part be chronic. Correlate for any acute respir atory symptoms that would suggest entities such as bronchitis, uncontrolled asthma, atypical pneumoni as, or interstitial pneumonitis.
[2017-11-14] MEDS ORDERED: MAGNESIUM SULFATE-D5W PMX 1 GM in DEXTROSE/WATER 1 100ML.BAG IVPB ONE (21:42)
[2017-11-14] MEDS ORDERED: HEPARIN SODIUM,PORCINE 5,000 UNIT/ML 1 ML VIAL IV ONE (21:43)
[2017-11-14] MEDS ORDERED: HEPARIN SODIUM,PORCINE 5,000 UNIT/ML 1 ML VIAL IV PRN (21:43)
[2017-11-14] MEDS ORDERED: HEPARIN SOD,PORK IN 0.45% NACL 25,000 UNIT in 0.45% NACL 1 500ML.BAG IV SCH (21:45)
[2017-11-14] MEDS ORDERED: ONDANSETRON 4 MG/2 ML VIAL IVP PRN (21:59)
[2017-11-14] MEDS ORDERED: NALOXONE 0.4 MG/ML 1 ML VIAL IV PRN (21:59)
[2017-11-14] MEDS: MORPHINE SULFATE 2 MG/ML SYRINGE IV PRN (22:32)
[2017-11-15] MEDS ORDERED: diphenhydrAMINE 50 MG/ML 1 ML VIAL IVP STA (00:45)
[2017-11-15 03:18] LABS: Creatine Kinase MB 6.7 ng/mL (0.0-2.4); Troponin I 1.46 ng/mL (0.000-0.034)
[2017-11-15 05:49] LABS: Anisocytosis Slight; Basophils % (A) 1 %; Eosinophils # (A) 0.2 k/uL (0-0.7); Eosinophils % (A) 4 %; HCT 35.1 % (39.0-53.0); HGB 11.2 gm/dL (13.0-17.5); Hypochromasia Moderate; Lymphocytes # (A) 1.8 k/uL (1.0-4.8); Lymphocytes % (A) 32 %; MCH 25.2 pg (25.0-35.0); MCHC 31.8 g/dL (31.0-37.0); MCV 79.2 fL (80.0-100.0); Mean Platelet Volume 6.9; Microcytosis Slight; Monocytes # (A) 0.2 k/uL (0-1.0); Monocytes % (A) 4 %; Neutrophils # (A) 3.2 k/uL (1.3-7.7); Neutrophils % (A) 58 %; Platelet Count 326 k/uL (150-450); RBC 4.43 m/uL (4.30-5.90); RDW 16.6 % (11.5-15.5); WBC 5.6 k/uL (3.8-10.6)
[2017-11-15] MEDS: MORPHINE SULFATE 2 MG/ML SYRINGE IV PRN ×3 (07:55→16:12)
[2017-11-15] MEDS ORDERED: ONDANSETRON 4 MG TAB PO PRN (08:56)
[2017-11-15] MEDS ORDERED: NITROGLYCERIN SL TABS 0.4 MG TAB SUBLINGUAL PRN (08:56)
[2017-11-15] MEDS ORDERED: ALBUTEROL NEBULIZED 2.5 MG/3 ML INHALATION PRN (08:56)
[2017-11-15] MEDS ORDERED: ISOSORBIDE MONONITRATE ER 30 MG TAB.ER.24H PO SCH (09:00)
[2017-11-15] MEDS ORDERED: SERTRALINE 100 MG TAB PO SCH (09:00)
[2017-11-15] MEDS ORDERED: ARIPiprazole 15 MG TAB PO SCH ×2 (09:00→21:00)
[2017-11-15] MEDS ORDERED: ASPIRIN 81 MG PO SCH (09:00)
[2017-11-15] MEDS ORDERED: METOPROLOL TARTRATE 50 MG TAB PO SCH (09:00)
[2017-11-15] MEDS ORDERED: FAMOTIDINE 20 MG TAB PO SCH (09:00)
[2017-11-15] MEDS ORDERED: LINAGLIPTIN 5 MG TABLET PO SCH ×2 (09:00→21:00)
[2017-11-15] MEDS ORDERED: ACARBOSE 25 MG TAB PO SCH (09:00)
[2017-11-15] MEDS ORDERED: SPIRONOLACTONE 25 MG TAB PO SCH (09:00)
[2017-11-15] MEDS ORDERED: RANOLAZINE 500 MG TAB.ER.12H PO SCH (09:00)
[2017-11-15] MEDS ORDERED: PANTOPRAZOLE 40 MG TABLET PO SCH (09:00)
[2017-11-15] MEDS ORDERED: PRIMIDONE 50 MG TAB PO SCH (09:00)
[2017-11-15] MEDS ORDERED: CHOLECALCIFEROL 1,000 UNIT TAB PO SCH (09:00)
[2017-11-15] MEDS ORDERED: LISINOPRIL 2.5 MG TAB PO SCH (09:00)
[2017-11-15] MEDS ORDERED: GLIMEPIRIDE 4 MG TAB PO SCH (09:00)
[2017-11-15 10:02] LABS: Creatine Kinase MB 7.5 ng/mL (0.0-2.4); Troponin I 1.65 ng/mL (0.000-0.034)
[2017-11-15] MEDS: FUROSEMIDE 40 MG TAB PO SCH ×2 (10:17→15:35)
[2017-11-15] MEDS: GABAPENTIN 400 MG CAP PO SCH ×2 (10:17→15:36)
[2017-11-15] MEDS ORDERED: diphenhydrAMINE 50 MG/ML 1 ML VIAL IVP PRN (10:22)
--- NOTE | 2017-11-15 12:11 | P.CRDCN ---
History of Present Illness Consult date: 11/15/17 Requesting physician: Safia Clay Consult reason: non-Q-wave CT Chief complaint: Chest pain History of present illness: This is a 41-year-old gentleman with known history of coronary artery disease and multiple stent placements. History of severe ischemic cardiomyopathy with prior AICD, hypertension, diabetes, hyperlipidemia, sleep apnea, prior TIA, GERD, Patient follows with Dr. 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 He was in the hospital in August or July of this year transferred out, states that he underwent angioplasty to [facility] at that time. He also states that he had a recent admission to [facility] with MRSA on his bilateral legs for which she underwent some type of procedure to cleanse that area. He does have dressings on both of his lower extremities at this time. He recently saw his electrical wirer last week and was explaining to him that he's been experiencing intermittent chest pressure and heaviness, he was told to increase his dose of Imdur. He presents to the hospital now on this occasion with severe midsternal chest discomfort which radiated to both of his arms and around to his back. He was diaphoretic, and nauseated. Chest x-ray on admission showed moderate diffuse interstitial prominence which may appear's to be chronic. EKG shows a sensed V paced rhythm. Blood pressure 130/60. A blood cell count 5.6, hemoglobin 11.2, platelet count 326. Sodium 133, potassium 5.2, BUN 21, creatinine 1.2. Troponins 0.054, 1.4, 1.6. BNP level 2200. Past Medical History Past Medical History: Asthma, Coronary Artery Disease (CAD), Chest Pain / Angina , Heart Failure, CVA/TIA, Diabetes Mellitus, GERD/Reflux, Hyperlipidemia, Hypertension, Myocardial Infarction (CT), Osteoarthritis (OA), Pneumonia, Skin Disorder, Sleep Apnea/CPAP/BIPAP Additional Past Medical History / Comment(s): multiple vessel CAD, ischemic cardiomyopathy, diabetic neuropathy bilateral hands and feet, hypertensive cardiovascular disease, SHELIA with no device, chronic gastritis, degenerative disc disease, chronic back pain, depression with hx of suicide attempts, gastroparesis, psoriasis, UTI, migraines, TIA, PUD, hiatal hernia, L rotator cuff tear, bronchitis, pseudoaneurysm L groin post procedure. 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 Date of Last Stent Placement:: 05/25/2017 Type of Cardiac Device: Biventricular Pacemaker, AICD Device Placement Date:: 09/19/15 Past Psychological History: Anxiety, Depression, PTSD Additional Psychological History / Comment(s): Several suicide attempts with use of insulin. PTSD - in 2000 his 3mo old son in his arms (born 2 months premature). Pt states his depression is stable at this time and he denies any suicidal thoughts or plans. He is independent. Pt lives at home with his . Pt drives and he is indp at home. Smoking Status: Never smoker Past Alcohol Use History: None Reported Additional Past Alcohol Use History / Comment(s): Past alcohol abuse - pt states he quit drinking 7yrs ago. Past Drug Use History: None Reported Additional Drug Use History / Comment(s): Pt has smoked marijuana in the past - last smoked in 1999. - Past Family History Mother Family Medical History: Coronary Artery Disease (CAD), Myocardial Infarction (CT ) Additional Family Medical History / Comment(s): 7 CT and faulty heart valve. Pt does not know the age when mother had her CT's. Father History Unknown: Yes Additional Family Medical History / Comment(s): Does not know who father is. Brother(s) Family Medical History: Cancer, Congestive Heart Failure (CHF), Myocardial Infarction (CT) Additional Family Medical History / Comment(s): Parkinsons. Pt does not know at what age his brother had an CT. Patient's other brother has lung CA Patient has Family Medical History: No Reported History Additional Family Medical History / Comment(s): There is a strong family history for heart disease, hypertension, and diabetes. Medications and Allergies Home Medications Medication Instructions Recorded Confirmed Type metFORMIN HCL 1,000 mg PO AC-BID 07/03/15 11/15/17 History Glimepiride 4 mg PO AC-BID 03/10/16 11/15/17 History Cholecalciferol (Vitamin D3) 2,000 unit PO DAILY 11/07/16 11/15/17 History [Vitamin D3] Linagliptin [Tradjenta] 5 mg PO HS 12/19/16 11/15/17 History Aspirin 81 mg PO DAILY chew 07/27/17 11/15/17 Rx Gabapentin [Neurontin] 400 mg PO TID cap 07/27/17 11/15/17 Rx Isosorbide Mononitrate ER [Imdur] 30 mg PO DAILY tab.er.24h 07/27/17 11/15/17 Rx Lisinopril [Zestril] 2.5 mg PO DAILY tab 07/27/17 11/15/17 Rx Nitroglycerin Sl Tabs [Nitrostat] 0.4 mg SUBLINGUAL Q5M PRN tab 07/27/17 Rx Pantoprazole [Protonix] 40 mg PO BID tablet.dr 07/27/17 11/15/17 Rx Prasugrel [Effient] 10 mg PO HS tab 07/27/17 11/15/17 Rx Primidone [Mysoline] 100 mg PO BID tab 07/27/17 11/15/17 Rx Sertraline [Zoloft] 200 mg PO DAILY tab 07/27/17 11/15/17 Rx ARIPiprazole [ARIPiprazole Odt] 15 mg PO HS 10/27/17 11/15/17 History Albuterol Inhaler [Ventolin Hfa 2 puff INHALATION RT-Q4H PRN 10/27/17 11/15/17 History Inhaler] Baclofen [Lioresal] 10 mg PO AC-TID 10/27/17 11/15/17 History Loperamide [Imodium] 2 mg PO DAILY PRN 10/27/17 11/15/17 History Ondansetron [Zofran] 4 mg PO BID PRN 10/27/17 11/15/17 History Ranitidine HCl 300 mg PO DAILY 10/27/17 11/15/17 History Ranolazine [Ranexa] 1,000 mg PO Q12H 10/27/17 11/15/17 History Rosuvastatin Calcium [Crestor] 40 mg PO HS 10/27/17 11/15/17 History Spironolactone [Aldactone] 12.5 mg PO DAILY 10/27/17 11/15/17 History Furosemide [Lasix] 40 mg PO BID@0900,1600 #60 tab 10/28/17 11/15/17 Rx Metoprolol Tartrate [Lopressor] 100 mg PO BID #60 tab 10/28/17 11/15/17 Rx Dulaglutide [Trulicity] 0.75 mg SQ OROZCO 11/15/17 11/15/17 History Allergies Allergy/AdvReac Type Severity Reaction Status Date / Time erythromycin base Allergy Severe Rash/Hives Verified 11/15/17 10:39 [Erythromycin Base] cephalexin monohydrate Allergy Unknown Rash/Hives Verified 11/15/17 10:39 [From Keflex] codeine Allergy Unknown Unknown Verified 11/15/17 10:39 meclizine Allergy Unknown Unknown Verified 11/15/17 10:39 Penicillins Allergy Unknown Rash/Hives Verified 11/15/17 10:39 shellfish derived Allergy Unknown Anaphylaxis Verified 11/15/17 10:39 Fish Containing Products Allergy Anaphylaxis Verified 11/15/17 10:39 [Fish] Iodinated Contrast- Oral and Allergy Anaphylaxis Verified 11/15/17 10:39 IV Dye naproxen AdvReac Unknown Compromises Verified 11/15/17 10:39 Kidney Function atorvastatin calcium AdvReac Myalgia Verified 11/15/17 10:39 [From Lipitor] hydrocodone [From [place]] AdvReac Rapid Verified 11/15/17 10:39 Heart Rate Physical Exam Vitals: Vital Signs Temp Pulse Resp BP Pulse Ox 11/15/17 10:31 97.2 F L 99 18 131/62 98 11/15/17 09:00 103 H 18 137/79 95 11/15/17 06:49 93 17 147/65 99 11/15/17 05:40 94 16 132/62 98 11/15/17 04:38 100 17 135/70 97 11/15/17 03:38 102 H 17 127/72 97 11/15/17 02:38 100 16 118/66 98 11/15/17 01:45 100 16 110/71 98 11/14/17 21:02 118 H 16 157/85 95 11/14/17 19:59 97.6 F 122 H 20 149/107 98 Intake and Output 11/14/17 11/15/17 11/15/17 22:59 06:59 14:59 Intake Total 178.333 Balance 178.333 Intake: Intake, IV Titration 178.333 Amount Heparin Sod,Pork in 0.45% 178.333 NaCl 25,000 unit In 0.45 % NaCl 1 500ml.bag @ 20 mls/hr IV .Q24H [facility] Rx#: [id number] Other: Weight 111.13 kg PHYSICAL EXAMINATION: GENERAL: 41-year-old gentleman in no apparent distress at the time of my examination HEENT: Head is atraumatic, normocephalic. Pupils equal, round. Sclera anicteric. Conjunctiva are clear. Mucous membranes of the mouth are moist. Neck is supple. There is no elevated jugular venous pressure.] bruit is heard. HEART EXAMINATION: Heart S1, S2 normal. No murmur or gallop heard. CHEST EXAMINATION: Lungs are clear to auscultation and precussion. No chest wall tenderness is noted on palpation or with deep breathing. ABDOMEN: Soft, nontender. Bowel sounds are heard. No organomegaly noted. EXTREMITIES: 2+ peripheral pulses with no evidence of peripheral edema and no calf tenderness noted. Patient does have the dressings on his bilateral lower extremities, positive MRSA NEUROLOGIC patient is awake, alert and oriented -3. . Results 11/15/17 05:32 11/14/17 20:32 Cardiac Enzymes 11/14/17 11/14/17 11/15/17 Range/Units 20:32 20:32 02:29 AST 19 (17-59) U/L CK-MB (CK-2) 1.5 6.7 H* (0.0-2.4) ng/mL Troponin I 0.054 H* 1.460 H* (0.000-0.034) ng/mL 11/15/17 Range/Units 09:01 AST (17-59) U/L CK-MB (CK-2) 7.5 H* (0.0-2.4) ng/mL Troponin I 1.650 H* (0.000-0.034) ng/mL Coagulation 18 11/15/17 Range/Units 20:32 05:32 PT 10.9 (9.0-12.0) sec APTT 20.9 L 25.1 (22.0-30.0) sec CBC 11/14/17 11/15/17 Range/Units 20:32 05:32 WBC 7.2 5.6 (3.8-10.6) k/uL RBC 4.67 4.43 (4.30-5.90) m/uL Hgb 12.0 L 11.2 L (13.0-17.5) gm/dL Hct 37.1 L 35.1 L (39.0-53.0) % Plt Count 381 326 (150-450) k/uL Comprehensive Metabolic Panel 11/14/17 Range/Units 20:32 Sodium 133 L (137-145) mmol/L Potassium 5.2 H (3.5-5.1) mmol/L Chloride 98 (98-107) mmol/L Carbon Dioxide 22 (22-30) mmol/L BUN 21 H (9-20) mg/dL Creatinine 1.20 (0.66-1.25) mg/dL Glucose 368 H (74-99) mg/dL Calcium 9.2 (8.4-10.2) mg/dL AST 19 (17-59) U/L ALT 32 (21-72) U/L Alkaline Phosphatase 134 H (38-126) U/L Total Protein 6.2 L (6.3-8.2) g/dL Albumin 3.5 (3.5-5.0) g/dL Current Medications Generic Name Dose Route Start Last Admin Trade Name Freq PRN Reason Stop Dose Admin Acarbose 50 mg 11/15/17 09:00 11/15/17 10:16 Precose PO Not Given TID JAKE Albuterol Sulfate 2.5 mg 11/15/17 08:56 Ventolin Nebulized INHALATION RT-Q4H PRN Shortness Of Breath Aripiprazole 15 mg 11/15/17 21:00 Abilify PO HS JAKE Aspirin 81 mg 11/15/17 09:00 11/15/17 10:16 Aspirin PO 81 mg DAILY JAKE Administration Baclofen 10 mg 11/15/17 12:30 Lioresal PO AC-TID JAKE Cholecalciferol 2,000 unit 11/15/17 09:00 11/15/17 10:17 Vitamin D3 PO 2,000 unit DAILY JAKE Administration Diphenhydramine HCl 25 mg 11/15/17 10:22 Benadryl IVP Q6HR PRN Allergy Symptoms Famotidine 40 mg 11/15/17 09:00 11/15/17 10:17 Pepcid PO 40 mg DAILY JAKE Administration Furosemide 40 mg 11/15/17 09:00 11/15/17 10:17 Lasix PO 40 mg BID@0900,1600 JAKE Administration Gabapentin 400 mg 11/15/17 09:00 11/15/17 10:17 Neurontin PO 400 mg TID JAKE Administration Glimepiride 4 mg 11/15/17 09:00 11/15/17 10:17 Amaryl PO 4 mg AC-BID JAKE Administration Heparin Sodium (Porcine) 0 unit 11/14/17 21:43 11/15/17 07:51 Heparin IV 5,000 unit PER PROTOCOL PRN Administration Low PTT Protocol Heparin Sodium/Sodium Chloride 500 mls @ 20 mls/hr 11/14/17 21:45 11/15/17 07 :50 25,000 unit/ Sodium Chloride IV 26.7 mls/hr .Q24H JAKE 26.7 mls/hr Protocol Titration Isosorbide Mononitrate 30 mg 11/15/17 09:00 11/15/17 10:17 Imdur PO 30 mg DAILY JAKE Administration Linagliptin 5 mg 11/15/17 21:00 Tradjenta PO HS [facility] Lisinopril 2.5 mg 11/15/17 09:00 11/15/17 10:18 Zestril PO 2.5 mg DAILY [facility] Administration Metoprolol Tartrate 100 mg 11/15/17 09:00 11/15/17 10:18 Lopressor PO 100 mg BID JAKE Administration Morphine Sulfate 4 mg 11/14/17 21:59 11/15/17 07:55 Morphine Sulfate (Inj) IV 4 mg Q4HR PRN Administration Severe Pain Naloxone HCl 0.2 mg 11/14/17 21:59 Narcan IV Q2M PRN Opioid Reversal Nitroglycerin 0.4 mg 11/14/17 20:47 11/14/17 21:05 Nitrostat SUBLINGUAL 0.4 mg Q5M PRN Administration Chest Pain Nitroglycerin 0.4 mg 11/15/17 08:56 Nitrostat SUBLINGUAL Q5M PRN Chest Pain Rosuvastatin Calcium 40 mg 11/15/17 21:00 [Crestor] 40 Mg PO HS JAKE Ondansetron HCl 4 mg 11/14/17 21:59 Zofran IVP Q8HR PRN Nausea And Vomiting Ondansetron HCl 4 mg 11/15/17 08:56 Zofran PO BID PRN Nausea Pantoprazole Sodium 40 mg 11/15/17 09:00 11/15/17 10:18 Protonix PO 40 mg AC-BID JAKE Administration Prasugrel 10 mg 11/15/17 21:00 Effient PO HS JAKE Primidone 100 mg 11/15/17 09:00 11/15/17 10:18 Mysoline PO 100 mg BID JAKE Administration Ranolazine 1,000 mg 11/15/17 09:00 11/15/17 10:19 Ranexa PO 1,000 mg Q12H [facility]KE Administration Sertraline HCl 200 mg 11/15/17 09:00 11/15/17 10:19 Zoloft PO 200 mg DAILY JAKE Administration Spironolactone 12.5 mg 11/15/17 09:00 11/15/17 10:19 Aldactone PO 12.5 mg DAILY JAKE Administration Intake and Output 11/14/17 11/15/17 11/15/17 22:59 06:59 14:59 Intake Total 178.333 Balance 178.333 Intake: Intake, IV Titration 178.333 Amount Heparin Sod,Pork in 0.45% 178.333 NaCl 25,000 unit In 0.45 % NaCl 1 500ml.bag @ 20 mls/hr IV .Q24H [facility] Rx#: [id number] Other: Weight 111.13 kg 11/15/17 05:32 11/14/17 20:32 EKG Interpretations (text) EKG shows an atrial sensed V paced rhythm Assessment and Plan Plan: Assessment and plan #1 non-Q-wave myocardial infarction #2 known history of coronary artery disease with prior multiple stent placements #3 diabetes, uncontrolled #4 ischemic cardiomyopathy with prior bi V AICD implant #5 hypomagnesemia #6 hypertension #7 hyperlipidemia #8 prior TIA #9 GERD #10 sleep apnea #11 MRSA on bilateral lower extremities Plan Patient has ruled in for non-Q-wave myocardial infarction, he denies any chest discomfort breathing is stable. He is very stable at this point to be transferred to [facility] under the care of his electrical wirer. Our recommendation is that he be transferred there as soon as possible for possible cardiac catheterization. We will continue him on his baby aspirin daily, Lasix , IV heparin, lisinopril, Effient, Ranexa, Aldactone and metoprolol. DNP note has been reviewed, I agree with a documented findings and plan of care. Patient was seen and examined.
[2017-11-15 12:13] VITALS: BMI 36.1
[2017-11-15] MEDS ORDERED: BACLOFEN 10 MG TAB PO SCH (12:30)
--- NOTE | 2017-11-15 13:39 | P.CRDCN ---
History of Present Illness History of present illness: 41-year-old male patient presented with chest discomfort intermittent, with abnormal cardiac enzymes. 2-D seizure Bi V paced rhythm He just saw his attendant campground on Thursday Dr. Peres at [facility] Heart sounds are normal clear he looks comfortable vitals are stable afebrile Suggest Antiplatelet therapy statins beta blockers continue home medications continue IV heparin This gentleman should be transferred to the care of his primary attendant campground, who has been taking care of him, for further management. He is very stable at this time and this would be a good time to transfer him while he is stable Ideally this should be done from the emergency room I spoke to his attending physician during this hospitalization and advised him of the same This gentleman has very advanced coronary artery disease with recurrent myocardial infarctions and a cardiomyopathy and has had multiple stents placed, initially at this institution many years back and subsequently at another institution in the care of his current attendant campground Please see full dictation by nurse practitioner Past Medical History Past Medical History: Asthma, Coronary Artery Disease (CAD), Chest Pain / Angina , Heart Failure, CVA/TIA, Diabetes Mellitus, GERD/Reflux, Hyperlipidemia, Hypertension, Myocardial Infarction (VA), Osteoarthritis (OA), Pneumonia, Skin Disorder, Sleep Apnea/CPAP/BIPAP Additional Past Medical History / Comment(s): multiple vessel CAD, ischemic cardiomyopathy, diabetic neuropathy bilateral hands and feet, hypertensive cardiovascular disease, SHELIA with no device, chronic gastritis, degenerative disc disease, chronic back pain, depression with hx of suicide attempts, gastroparesis, psoriasis, UTI, migraines, TIA, PUD, hiatal hernia, L rotator cuff tear, bronchitis, pseudoaneurysm L groin post procedure. 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 Date of Last Stent Placement:: 05/25/2017 Type of Cardiac Device: Biventricular Pacemaker, AICD Device Placement Date:: 09/19/15 Past Psychological History: Anxiety, Depression, PTSD Additional Psychological History / Comment(s): Several suicide attempts with use of insulin. PTSD - in 2000 his 3mo old son in his arms (born 2 months premature). Pt states his depression is stable at this time and he denies any suicidal thoughts or plans. He is independent. Pt lives at home with his . Pt drives and he is indp at home. Smoking Status: Never smoker Past Alcohol Use History: None Reported Additional Past Alcohol Use History / Comment(s): Past alcohol abuse - pt states he quit drinking 7yrs ago. Past Drug Use History: None Reported Additional Drug Use History / Comment(s): Pt has smoked marijuana in the past - last smoked in 1999. - Past Family History Mother Family Medical History: Coronary Artery Disease (CAD), Myocardial Infarction (VA ) Additional Family Medical History / Comment(s): 7 VA and faulty heart valve. Pt does not know the age when mother had her VA's. Father History Unknown: Yes Additional Family Medical History / Comment(s): Does not know who father is. Brother(s) Family Medical History: Cancer, Congestive Heart Failure (CHF), Myocardial Infarction (VA) Additional Family Medical History / Comment(s): Parkinsons. Pt does not know at what age his brother had an VA. Patient's other brother has lung CA Patient has Family Medical History: No Reported History Additional Family Medical History / Comment(s): There is a strong family history for heart disease, hypertension, and diabetes. Medications and Allergies Home Medications Medication Instructions Recorded Confirmed Type metFORMIN HCL 1,000 mg PO AC-BID 07/03/15 11/15/17 History Glimepiride 4 mg PO AC-BID 03/10/16 11/15/17 History Cholecalciferol (Vitamin D3) 2,000 unit PO DAILY 11/07/16 11/15/17 History [Vitamin D3] Linagliptin [Tradjenta] 5 mg PO HS 12/19/16 11/15/17 History Aspirin 81 mg PO DAILY chew 07/27/17 11/15/17 Rx Gabapentin [Neurontin] 400 mg PO TID cap 07/27/17 11/15/17 Rx Isosorbide Mononitrate ER [Imdur] 30 mg PO DAILY tab.er.24h 07/27/17 11/15/17 Rx Lisinopril [Zestril] 2.5 mg PO DAILY tab 07/27/17 11/15/17 Rx Nitroglycerin Sl Tabs [Nitrostat] 0.4 mg SUBLINGUAL Q5M PRN tab 07/27/17 Rx Pantoprazole [Protonix] 40 mg PO BID tablet.dr 07/27/17 11/15/17 Rx Prasugrel [Effient] 10 mg PO HS tab 07/27/17 11/15/17 Rx Primidone [Mysoline] 100 mg PO BID tab 07/27/17 11/15/17 Rx Sertraline [Zoloft] 200 mg PO DAILY tab 07/27/17 11/15/17 Rx ARIPiprazole [ARIPiprazole Odt] 15 mg PO HS 10/27/17 11/15/17 History Albuterol Inhaler [Ventolin Hfa 2 puff INHALATION RT-Q4H PRN 10/27/17 11/15/17 History Inhaler] Baclofen [Lioresal] 10 mg PO AC-TID 10/27/17 11/15/17 History Loperamide [Imodium] 2 mg PO DAILY PRN 10/27/17 11/15/17 History Ondansetron [Zofran] 4 mg PO BID PRN 10/27/17 11/15/17 History Ranitidine HCl 300 mg PO DAILY 10/27/17 11/15/17 History Ranolazine [Ranexa] 1,000 mg PO Q12H 10/27/17 11/15/17 History Rosuvastatin Calcium [Crestor] 40 mg PO HS 10/27/17 11/15/17 History Spironolactone [Aldactone] 12.5 mg PO DAILY 10/27/17 11/15/17 History Furosemide [Lasix] 40 mg PO BID@0900,1600 #60 tab 10/28/17 11/15/17 Rx Metoprolol Tartrate [Lopressor] 100 mg PO BID #60 tab 10/28/17 11/15/17 Rx Dulaglutide [Trulicity] 0.75 mg SQ OROCZO 11/15/17 11/15/17 History Allergies Allergy/AdvReac Type Severity Reaction Status Date / Time erythromycin base Allergy Severe Rash/Hives Verified 11/15/17 10:39 [Erythromycin Base] cephalexin monohydrate Allergy Unknown Rash/Hives Verified 11/15/17 10:39 [From Keflex] codeine Allergy Unknown Unknown Verified 11/15/17 10:39 meclizine Allergy Unknown Unknown Verified 11/15/17 10:39 Penicillins Allergy Unknown Rash/Hives Verified 11/15/17 10:39 shellfish derived Allergy Unknown Anaphylaxis Verified 11/15/17 10:39 Fish Containing Products Allergy Anaphylaxis Verified 11/15/17 10:39 [Fish] Iodinated Contrast- Oral and Allergy Anaphylaxis Verified 11/15/17 10:39 IV Dye naproxen AdvReac Unknown Compromises Verified 11/15/17 10:39 Kidney Function atorvastatin calcium AdvReac Myalgia Verified 11/15/17 10:39 [From Lipitor] hydrocodone [From [place]] AdvReac Rapid Verified 11/15/17 10:39 Heart Rate Physical Exam Vitals: Vital Signs Temp Pulse Pulse Resp BP BP Pulse Ox 11/15/17 12:11 75 17 113/70 97 11/15/17 10:31 97.2 F L 99 18 131/62 98 11/15/17 09:00 103 H 18 137/79 95 11/15/17 06:49 93 17 147/65 99 11/15/17 05:40 94 16 132/62 98 11/15/17 04:38 100 17 135/70 97 11/15/17 03:38 102 H 17 127/72 97 11/15/17 02:38 100 16 118/66 98 11/15/17 01:45 100 16 110/71 98 11/14/17 21:02 118 H 16 157/85 95 11/14/17 19:59 97.6 F 122 H 20 149/107 98 Intake and Output 11/14/17 11/15/17 11/15/17 22:59 06:59 14:59 Intake Total 178.333 Balance 178.333 Intake: Intake, IV Titration 178.333 Amount Heparin Sod,Pork in 0.45% 178.333 NaCl 25,000 unit In 0.45 % NaCl 1 500ml.bag @ 20 mls/hr IV .Q24H [facility] Rx#: [id number] Other: Weight 111.13 kg 111.13 kg Results 11/15/17 05:32 11/14/17 20:32 Cardiac Enzymes 11/14/17 11/14/17 11/15/17 Range/Units 20:32 20:32 02:29 AST 19 (17-59) U/L CK-MB (CK-2) 1.5 6.7 H* (0.0-2.4) ng/mL Troponin I 0.054 H* 1.460 H* (0.000-0.034) ng/mL 11/15/17 Range/Units 09:01 AST (17-59) U/L CK-MB (CK-2) 7.5 H* (0.0-2.4) ng/mL Troponin I 1.650 H* (0.000-0.034) ng/mL Coagulation 11/14/17 11/15/17 Range/Units 20:32 05:32 PT 10.9 (9.0-12.0) sec APTT 20.9 L 25.1 (22.0-30.0) sec CBC 11/14/17 11/15/17 Range/Units 20:32 05:32 WBC 7.2 5.6 (3.8-10.6) k/uL RBC 4.67 4.43 (4.30-5.90) m/uL Hgb 12.0 L 11.2 L (13.0-17.5) gm/dL Hct 37.1 L 35.1 L (39.0-53.0) % Plt Count 381 326 (150-450) k/uL Comprehensive Metabolic Panel 11/14/17 Range/Units 20:32 Sodium 133 L (137-145) mmol/L Potassium 5.2 H (3.5-5.1) mmol/L Chloride 98 (98-107) mmol/L Carbon Dioxide 22 (22-30) mmol/L BUN 21 H (9-20) mg/dL Creatinine 1.20 (0.66-1.25) mg/dL Glucose 368 H (74-99) mg/dL Calcium 9.2 (8.4-10.2) mg/dL AST 19 (17-59) U/L ALT 32 (21-72) U/L Alkaline Phosphatase 134 H (38-126) U/L Total Protein 6.2 L (6.3-8.2) g/dL Albumin 3.5 (3.5-5.0) g/dL Current Medications Generic Name Dose Route Start Last Admin Trade Name Freq PRN Reason Stop Dose Admin Acarbose 50 mg 11/15/17 09:00 11/15/17 10:16 Precose PO Not Given TID JAKE Albuterol Sulfate 2.5 mg 11/15/17 08:56 Ventolin Nebulized INHALATION RT-Q4H PRN Shortness Of Breath Aripiprazole 15 mg 11/15/17 21:00 Abilify PO HS JAKE Aspirin 81 mg 11/15/17 09:00 11/15/17 10:16 Aspirin PO 81 mg DAILY JAKE Administration Baclofen 10 mg 11/15/17 12:30 11/15/17 12:15 Lioresal PO Not Given AC-TID JAKE Cholecalciferol 2,000 unit 11/15/17 09:00 11/15/17 10:17 Vitamin D3 PO 2,000 unit DAILY JAKE Administration Diphenhydramine HCl 25 mg 11/15/17 10:22 Benadryl IVP Q6HR PRN Allergy Symptoms Famotidine 40 mg 11/15/17 09:00 11/15/17 10:17 Pepcid PO 40 mg DAILY JAKE Administration Furosemide 40 mg 11/15/17 09:00 11/15/17 10:17 Lasix PO 40 mg BID@0900,1600 JAKE Administration Gabapentin 400 mg 11/15/17 09:00 11/15/17 10:17 Neurontin PO 400 mg TID JAKE Administration Glimepiride 4 mg 11/15/17 09:00 11/15/17 10:17 Amaryl PO 4 mg AC-BID JAKE Administration Heparin Sodium (Porcine) 0 unit 11/14/17 21:43 11/15/17 07:51 Heparin IV 5,000 unit PER PROTOCOL PRN Administration Low PTT Protocol Heparin Sodium/Sodium Chloride 500 mls @ 20 mls/hr 11/14/17 21:45 11/15/17 07 :50 25,000 unit/ Sodium Chloride IV 26.7 mls/hr .Q24H JAKE 26.7 mls/hr Protocol Titration Isosorbide Mononitrate 30 mg 11/15/17 09:00 11/15/17 10:17 Imdur PO 30 mg DAILY JAKE Administration Linagliptin 5 mg 11/15/17 21:00 Tradjenta PO HS JAKE Lisinopril 2.5 mg 11/15/17 09:00 11/15/17 10:18 Zestril PO 2.5 mg DAILY JAKE Administration Metoprolol Tartrate 100 mg 11/15/17 09:00 11/15/17 10:18 Lopressor PO 100 mg BID JAKE Administration Morphine Sulfate 4 mg 11/14/17 21:59 11/15/17 12:18 Morphine Sulfate (Inj) IV 4 mg Q4HR PRN Administration Severe Pain Naloxone HCl 0.2 mg 11/14/17 21:59 Narcan IV Q2M PRN Opioid Reversal Nitroglycerin 0.4 mg 11/14/17 20:47 11/14/17 21:05 Nitrostat SUBLINGUAL 0.4 mg Q5M PRN Administration Chest Pain Nitroglycerin 0.4 mg 11/15/17 08:56 Nitrostat SUBLINGUAL Q5M PRN Chest Pain Rosuvastatin Calcium 40 mg 11/15/17 21:00 [Crestor] 40 Mg PO HS JAKE Ondansetron HCl 4 mg 11/14/17 21:59 Zofran IVP Q8HR PRN Nausea And Vomiting Ondansetron HCl 4 mg 11/15/17 08:56 Zofran PO BID PRN Nausea Pantoprazole Sodium 40 mg 11/15/17 09:00 11/15/17 10:18 Protonix PO 40 mg AC-BID JAKE Administration Prasugrel 10 mg 11/15/17 21:00 Effient PO HS JAKE Primidone 100 mg 11/15/17 09:00 11/15/17 10:18 Mysoline PO 100 mg BID JAKE Administration Ranolazine 1,000 mg 11/15/17 09:00 11/15/17 10:19 Ranexa PO 1,000 mg Q12H JAKE Administration Sertraline HCl 200 mg 11/15/17 09:00 11/15/17 10:19 Zoloft PO 200 mg DAILY JAKE Administration Spironolactone 12.5 mg 11/15/17 09:00 11/15/17 10:19 Aldactone PO 12.5 mg DAILY JAKE Administration Intake and Output 11/14/17 11/15/17 11/15/17 22:59 06:59 14:59 Intake Total 178.333 Balance 178.333 Intake: Intake, IV Titration 178.333 Amount Heparin Sod,Pork in 0.45% 178.333 NaCl 25,000 unit In 0.45 % NaCl 1 500ml.bag @ 20 mls/hr IV .Q24H [facility] Rx#: [id number] Other: Weight 111.13 kg 111.13 kg Patient Weight 11/16/17 06:59 Weight 111.13 kg 11/15/17 05:32 11/14/17 20:32
--- NOTE | 2017-11-15 14:49 | P.HPIM ---
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 Associated with nausea but no vomiting and sweating. Patient just saw his charging machine operator Dr. Peres last Thursday for chest pain and increase his Imdur dose. In the s his sodium was 133, potassium 5.2 creatinine 1.2 BUN 21 magnesium low at 1.3 glucose-68. Liver enzymes within normal troponins were trending up 0.05-1.4-1.6 proBNP 0. Chest x-ray shows moderate interstitial disease could be chronic versus acute for example bronchitis [see radiology reports] EKG shows paced rhythm at 122 BPM QTC is 447. Cardiology evaluated the patient and recommended to transfer him to [facility] for his current charging machine operator there, for possible cardiac catheterization. I spoke with the charging machine operator occupational medicine officer at [facility] Dr. Monreal, but he rejected the patient as his primary charging machine operator is not occupational medicine officer today and recommended to transfer patient to the emergency room and Dr. Peres we'll come and see him tomorrow , which was again as a hospital policy to transfer patient from the floor to emergency room. As per recommendation of 4 charging machine operator to transfer the patient , I spoke with the physician on-call at [facility] Dr. Platt and discussed the case with him and he kindly accepted the patient. Patient can be transferred by land as per cardiology recommendation since he is a stable currently Patient has extensive cardiac history with multiple stents as per patient 5-6 stents first time was in 2009 and the last time was last year as per patient. Patient has recent documented EF of 40-45%, he follows Dr. Peres . Recently in July of this year he presented to the hospital with chest pain and was transferred to [facility] where he was taking to the Laboratory Mechanical Technician At that time he had balloon angioplasty. As per records in 2016 ,patient has history of Prior stenting of the LAD, a chronic total occlusion of RCA, and intermediate disease involving the left circumference which underwent cardiac cath back in December 2014 at that time Showed the chronic total occlusion of the RCA, the patent stent in the LAD and intermediate disease of the left circumference Patient also 2 ulcers on the on his both knees which were growing MRSA and has been treated for it with Bactrim, almost finished his course as per patient and at bedside . Review of Systems CONSTITUTIONAL: No fever, no malaise, no fatigue. HEENT: No recent visual problems or hearing problems. Denied any sore throat. CARDIOVASCULAR: No orthopnea, PND, no palpitations, no syncope. PULMONARY: no cough, no hemoptysis. GASTROINTESTINAL: No diarrhea, no nausea, no vomiting, no abdominal pain. Normoactive bowel sounds. NEUROLOGICAL: No headaches, no weakness, no numbness. HEMATOLOGICAL: Denies any bleeding or petechiae. GENITOURINARY: Denies any burning micturition, frequency, or urgency. MUSCULOSKELETAL/RHEUMATOLOGICAL: Denies any muscle pain. ENDOCRINE: Denies any polyuria or polydipsia. Past Medical History Past Medical History: Asthma, Coronary Artery Disease (CAD), Chest Pain / Angina , Heart Failure, CVA/TIA, Diabetes Mellitus, GERD/Reflux, Hyperlipidemia, Hypertension, Myocardial Infarction (ME), Osteoarthritis (OA), Pneumonia, Skin Disorder, Sleep Apnea/CPAP/BIPAP Additional Past Medical History / Comment(s): multiple vessel CAD, ischemic cardiomyopathy, diabetic neuropathy bilateral hands and feet, hypertensive cardiovascular disease, SHELIA with no device, chronic gastritis, degenerative disc disease, chronic back pain, depression with hx of suicide attempts, gastroparesis, psoriasis, UTI, migraines, TIA, PUD, hiatal hernia, L rotator cuff tear, bronchitis, pseudoaneurysm L groin post procedure. 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 Date of Last Stent Placement:: 05/25/2017 Type of Cardiac Device: Biventricular Pacemaker, AICD Device Placement Date:: 09/19/15 Past Psychological History: Anxiety, Depression, PTSD Additional Psychological History / Comment(s): Several suicide attempts with use of insulin. PTSD - in 2000 his 3mo old son in his arms (born 2 months premature). Pt states his depression is stable at this time and he denies any suicidal thoughts or plans. He is independent. Pt lives at home with his . Pt drives and he is indp at home. Smoking Status: Never smoker Past Alcohol Use History: None Reported Additional Past Alcohol Use History / Comment(s): Past alcohol abuse - pt states he quit drinking 7yrs ago. Past Drug Use History: None Reported Additional Drug Use History / Comment(s): Pt has smoked marijuana in the past - last smoked in 1999. - Past Family History Mother Family Medical History: Coronary Artery Disease (CAD), Myocardial Infarction (ME ) Additional Family Medical History / Comment(s): 7 ME and faulty heart valve. Pt does not know the age when mother had her ME's. Father History Unknown: Yes Additional Family Medical History / Comment(s): Does not know who father is. Brother(s) Family Medical History: Cancer, Congestive Heart Failure (CHF), Myocardial Infarction (ME) Additional Family Medical History / Comment(s): Parkinsons. Pt does not know at what age his brother had an ME. Patient's other brother has lung CA Patient has Family Medical History: No Reported History Additional Family Medical History / Comment(s): There is a strong family history for heart disease, hypertension, and diabetes. Medications and Allergies Home Medications Medication Instructions Recorded Confirmed Type RX: metFORMIN HCL 1,000 mg PO AC-BID 07/03/15 11/15/17 History RX: Glimepiride 4 mg PO AC-BID 03/10/16 11/15/17 History RX: Cholecalciferol (Vitamin D3) 2,000 unit PO DAILY 11/07/16 11/15/17 History [Vitamin D3] RX: Linagliptin [Tradjenta] 5 mg PO HS 12/19/16 11/15/17 History RX: Aspirin 81 mg PO DAILY chew 07/27/17 11/15/17 Rx RX: Gabapentin [Neurontin] 400 mg PO TID cap 07/27/17 11/15/17 Rx RX: Isosorbide Mononitrate ER 30 mg PO DAILY tab.er.24h 07/27/17 11/15/17 Rx [Imdur] RX: Lisinopril [Zestril] 2.5 mg PO DAILY tab 07/27/17 11/15/17 Rx RX: Nitroglycerin Sl Tabs 0.4 mg SUBLINGUAL Q5M PRN tab 07/27/17 11/15/17 Rx [Nitrostat] RX: Pantoprazole [Protonix] 40 mg PO BID tablet.dr 07/27/17 11/15/17 Rx RX: Prasugrel [Effient] 10 mg PO HS tab 07/27/17 11/15/17 Rx RX: Primidone [Mysoline] 100 mg PO BID tab 07/27/17 11/15/17 Rx RX: Sertraline [Zoloft] 200 mg PO DAILY tab 07/27/17 11/15/17 Rx RX: ARIPiprazole [ARIPiprazole Odt] 15 mg PO HS 10/27/17 11/15/17 History RX: Albuterol Inhaler [Ventolin 2 puff INHALATION RT-Q4H PRN 10/27/17 11/15/17 History Hfa Inhaler] RX: Baclofen [Lioresal] 10 mg PO AC-TID 10/27/17 11/15/17 History RX: Loperamide [Imodium] 2 mg PO DAILY PRN 10/27/17 11/15/17 History RX: Ondansetron [Zofran] 4 mg PO BID PRN 10/27/17 11/15/17 History RX: Ranitidine HCl 300 mg PO DAILY 10/27/17 11/15/17 History RX: Ranolazine [Ranexa] 1,000 mg PO Q12H 10/27/17 11/15/17 History RX: Rosuvastatin Calcium [Crestor] 40 mg PO HS 10/27/17 11/15/17 History RX: Spironolactone [Aldactone] 12.5 mg PO DAILY 10/27/17 11/15/17 History RX: Furosemide [Lasix] 40 mg PO BID@0900,1600 #60 tab 10/28/17 11/15/17 Rx RX: Metoprolol Tartrate [Lopressor] 100 mg PO BID #60 tab 10/28/17 11/15/17 Rx Dulaglutide [Trulicity] 0.75 mg SQ OROZCO 11/15/17 11/15/17 History Allergies Allergy/AdvReac Type Severity Reaction Status Date / Time erythromycin base Allergy Severe Rash/Hives Verified 11/15/17 10:39 [Erythromycin Base] cephalexin monohydrate Allergy Unknown Rash/Hives Verified 11/15/17 10:39 [From Keflex] codeine Allergy Unknown Unknown Verified 11/15/17 10:39 meclizine Allergy Unknown Unknown Verified 11/15/17 10:39 Penicillins Allergy Unknown Rash/Hives Verified 11/15/17 10:39 shellfish derived Allergy Unknown Anaphylaxis Verified 11/15/17 10:39 Fish Containing Products Allergy Anaphylaxis Verified 11/15/17 10:39 [Fish] Iodinated Contrast- Oral and Allergy Anaphylaxis Verified 11/15/17 10:39 IV Dye naproxen AdvReac Unknown Compromises Verified 11/15/17 10:39 Kidney Function atorvastatin calcium AdvReac Myalgia Verified 11/15/17 10:39 [From Lipitor] hydrocodone [From [place]] AdvReac Rapid Verified 11/15/17 10:39 Heart Rate Physical Exam Vitals: Vital Signs Temp Pulse Pulse Resp BP BP Pulse Ox 11/15/17 12:11 75 17 113/70 97 11/15/17 10:31 97.2 F L 99 18 131/62 98 11/15/17 09:00 103 H 18 137/79 95 11/15/17 06:49 93 17 147/65 99 11/15/17 05:40 94 16 132/62 98 11/15/17 04:38 100 17 135/70 97 11/15/17 03:38 102 H 17 127/72 97 11/15/17 02:38 100 16 118/66 98 11/15/17 01:45 100 16 110/71 98 11/14/17 21:02 118 H 16 157/85 95 11/14/17 19:59 97.6 F 122 H 20 149/107 98 Intake and Output 11/14/17 11/15/17 11/15/17 22:59 06:59 14:59 Intake Total 178.333 Balance 178.333 Intake: Intake, IV Titration 178.333 Amount Heparin Sod,Pork in 0.45% 178.333 NaCl 25,000 unit In 0.45 % NaCl 1 500ml.bag @ 20 mls/hr IV .Q24H [facility] Rx#: [id number] Other: Weight 111.13 kg 111.13 kg GENERAL: The patient is alert and oriented x3, not in any acute distress. Well developed, well nourished. HEENT: Pupils are round and equally reacting to light. EOMI. No scleral icterus. No conjunctival pallor. Normocephalic, atraumatic. No pharyngeal erythema. No thyromegaly. CARDIOVASCULAR: S1 and S2 present. No murmurs, rubs, or gallops. PULMONARY: Chest is clear to auscultation, no wheezing or crackles. ABDOMEN: Soft, nontender, nondistended, normoactive bowel sounds. No palpable organomegaly. MUSCULOSKELETAL: No joint swelling or deformity. EXTREMITIES: No cyanosis, clubbing, or pedal edema. Has bilateral open ulcers on both knees with no surrounding inflammation or cellulitis in dressing is in a Place NEUROLOGICAL: Gross neurological examination did not reveal any focal deficits. SKIN: No rashes. Results CBC & Chem 7: 11/15/17 05:32 11/14/17 20:32 Labs: Abnormal Lab Results - Last 24 Hours (Table) 11/14/17 11/14/17 11/14/17 Range/Units 20:32 20:32 20:32 Hgb 12.0 L (13.0-17.5) gm/dL Hct 37.1 L (39.0-53.0) % MCV 79.5 L (80.0-100.0) fL RDW 16.6 H (11.5-15.5) % APTT (22.0-30.0) sec Sodium 133 L (137-145) mmol/L Potassium 5.2 H (3.5-5.1) mmol/L BUN 21 H (9-20) mg/dL Glucose 368 H (74-99) mg/dL Magnesium 1.3 L (1.6-2.3) mg/dL Alkaline Phosphatase 134 H (38-126) U/L CK-MB (CK-2) (0.0-2.4) ng/mL Troponin I 0.054 H* (0.000-0.034) ng/mL Total Protein 6.2 L (6.3-8.2) g/dL 11/14/17 11/15/17 11/15/17 Range/Units 20:32 02:29 05:32 Hgb 11.2 L (13.0-17.5) gm/dL Hct 35.1 L (39.0-53.0) % MCV 79.2 L (80.0-100.0) fL RDW 16.6 H (11.5-15.5) % APTT 20.9 L (22.0-30.0) sec Sodium (137-145) mmol/L Potassium (3.5-5.1) mmol/L BUN (9-20) mg/dL Glucose (74-99) mg/dL Magnesium (1.6-2.3) mg/dL Alkaline Phosphatase (38-126) U/L CK-MB (CK-2) 6.7 H* (0.0-2.4) ng/mL Troponin I 1.460 H* (0.000-0.034) ng/mL Total Protein (6.3-8.2) g/dL 11/15/17 Range/Units 09:01 Hgb (13.0-17.5) gm/dL Hct (39.0-53.0) % MCV (80.0-100.0) fL RDW (11.5-15.5) % APTT (22.0-30.0) sec Sodium (137-145) mmol/L Potassium (3.5-5.1) mmol/L BUN (9-20) mg/dL Glucose (74-99) mg/dL Magnesium (1.6-2.3) mg/dL Alkaline Phosphatase (38-126) U/L CK-MB (CK-2) 7.5 H* (0.0-2.4) ng/mL Troponin I 1.650 H* (0.000-0.034) ng/mL Total Protein (6.3-8.2) g/dL Thrombosis Risk Factor Assmnt - Choose All That Apply Each Factor Represents 1 point: Age 41-60 years, Obesity (BMI >25) Thrombosis Risk Factor Assessment Total Risk Factor Score: 2 Thrombosis Risk Factor Assessment Level: Low Risk Assessment and Plan Assessment: -Non-STEMI -History of multiple vessel coronary artery disease S/P multiple stents, -History of heart failure -CVA/TIA, -History of MRSA infections, ulcers on both knees treated with Bactrim -diabetes mellitus, -diabetic neuropathy -GERD, -hyperlipidemia, -hypertension, -sleep apnea/on BiPAP, -history of depression and suicidal attempts for example was using insulin as per documentation, -gastroparesis -psoriasis Plan: Patient has been evaluated by charging machine operator recommended him to be transferred to [facility] for his current cardiology team with Dr. Peres. I spoke with Dr. Monreal the charging machine operator on-call and discussed the case with him however he rejected the case as he thinks there is no medical necessity for the transfer. I spoke with [facility] and he got accepted to be transferred. department sales manager on the case to facilitate the transfer. Patient already on treatment. Continue with antiplatelet therapy, statin, beta ravinder, IV heparin drip, and resume home medication DVT prophylaxis already on heparin GI prophylaxis on PPI Prognosis is guarded Code
--- NOTE | 2017-11-15 14:51 | P.DS ---
Providers Date of admission: 11/15/17 13:45 Attending physician: Safia Clay Consults: 11/14/17 22:01 Consult Physician Routine Consulting Provider: Judi Jordan Consult Reason/Comments: CP, elevated troponin Do you want consulting provider notified?: Yes Primary care physician: [facility] Hospital Course: This is a pleasant 41 years old male with past medical history of asthma, multiple vessel coronary artery disease S/P multiple stents, heart failure, CVA/ TIA, diabetes mellitus, diabetic neuropathy GERD, hyperlipidemia, hypertension, myocardial infarction, cellulitis, pneumonia, skin disorder, sleep apnea/on BiPAP, history of depression and suicidal attempts for example was using insulin as per documentation, gastroparesis, psoriasis, he has hiatal hernia, left rotator cuff tear, 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 Associated with nausea but no vomiting and sweating. Patient just saw his marine electrician helper Dr. Peres last Thursday for chest pain and increase his Imdur dose. In the 80s his sodium was 133, potassium 5.2 creatinine 1.2 BUN 21 magnesium low at 1.3 glucose-68. Liver enzymes within normal troponins were trending up 0.05-1.4-1.6 proBNP 2200. Chest x-ray shows moderate interstitial disease could be chronic versus acute for example bronchitis [see radiology reports] EKG shows paced rhythm at 122 BPM QTC is 447. Cardiology evaluated the patient and recommended to transfer him to [facility] for his current marine electrician helper there, for possible cardiac catheterization. I spoke with the marine electrician helper specimen accessioner at [facility] Dr. Monreal, but he rejected the patient as his primary marine electrician helper is not specimen accessioner today and recommended to transfer patient to the emergency room and Dr. Peres we'll come and see him tomorrow , which was again as a hospital policy to transfer patient from the floor to emergency room. As per recommendation of 4 marine electrician helper to transfer the patient , I spoke with the physician on-call at [facility] Dr. Platt and discussed the case with him and he kindly accepted the patient. Patient can be transferred by land as per cardiology recommendation since he is a stable currently Patient has extensive cardiac history with multiple stents as per patient 5-6 stents first time was in 2009 and the last time was last year as per patient. Patient has recent documented EF of 40-45%, he follows Dr. Peres . Recently in July of this year he presented to the hospital with chest pain and was transferred to [facility] where he was taking to the Voltage Regulator Assembler At that time he had balloon angioplasty. As per records in 2016 ,patient has history of Prior stenting of the LAD, a chronic total occlusion of RCA, and intermediate disease involving the left circumference which underwent cardiac cath back in December 2014 at that time Showed the chronic total occlusion of the RCA, the patent stent in the LAD and intermediate disease of the left circumference Patient also 2 ulcers on the on his both knees which were growing MRSA and has been treated for it with Bactrim, almost finished his course as per patient and at bedside Discharge exam GENERAL: The patient is alert and oriented x3, not in any acute distress. Well developed, well nourished. HEENT: Pupils are round and equally reacting to light. EOMI. No scleral icterus. No conjunctival pallor. Normocephalic, atraumatic. No pharyngeal erythema. No thyromegaly. CARDIOVASCULAR: S1 and S2 present. No murmurs, rubs, or gallops. PULMONARY: Chest is clear to auscultation, no wheezing or crackles. ABDOMEN: Soft, nontender, nondistended, normoactive bowel sounds. No palpable organomegaly. MUSCULOSKELETAL: No joint swelling or deformity. EXTREMITIES: No cyanosis, clubbing, or pedal edema. Has bilateral open ulcers on both knees with no surrounding inflammation or cellulitis in dressing is in a Place NEUROLOGICAL: Gross neurological examination did not reveal any focal deficits. SKIN: No rashes. Assessment: -Non-STEMI -History of multiple vessel coronary artery disease S/P multiple stents, -History of heart failure -CVA/TIA, -History of MRSA infections, ulcers on both knees treated with Bactrim -diabetes mellitus, -diabetic neuropathy -GERD, -hyperlipidemia, -hypertension, -sleep apnea/on BiPAP, -history of depression and suicidal attempts for example was using insulin as per documentation, -gastroparesis -psoriasis Plan: Patient has been evaluated by marine electrician helper recommended him to be transferred to [facility] for his current cardiology team with Dr. Peres. I spoke with Dr. Monreal the marine electrician helper on-call and discussed the case with him however he rejected the case as he thinks there is no medical necessity for the transfer. I spoke with [facility] and he got accepted to be transferred. online advertising manager on the case to facilitate the transfer. Discussed with patient and he agreeable to go to [facility]. Patient already on treatment. Continue with antiplatelet therapy, statin, beta ravinder, IV heparin drip, and resume home medication DVT prophylaxis already on heparin GI prophylaxis on PPI Prognosis is guarded Code Patient Condition at Discharge: Stable Plan - Discharge Summary New Discharge Prescriptions: No Action RX: metFORMIN HCL 1,000 mg PO AC-BID RX: Glimepiride 4 mg PO AC-BID RX: Cholecalciferol (Vitamin D3) [Vitamin D3] 2,000 unit PO DAILY RX: Linagliptin [Tradjenta] 5 mg PO HS RX: Aspirin 81 mg PO DAILY chew RX: Gabapentin [Neurontin] 400 mg PO TID cap RX: Isosorbide Mononitrate ER [Imdur] 30 mg PO DAILY tab.er.24h RX: Lisinopril [Zestril] 2.5 mg PO DAILY tab RX: Nitroglycerin Sl Tabs [Nitrostat] 0.4 mg SUBLINGUAL Q5M PRN tab PRN Reason: Chest Pain RX: Pantoprazole [Protonix] 40 mg PO BID tablet.dr RX: Prasugrel [Effient] 10 mg PO HS tab RX: Primidone [Mysoline] 100 mg PO BID tab RX: Sertraline [Zoloft] 200 mg PO DAILY tab RX: Spironolactone [Aldactone] 12.5 mg PO DAILY RX: Albuterol Inhaler [Ventolin Hfa Inhaler] 2 puff INHALATION RT-Q4H PRN PRN Reason: Shortness Of Breath RX: Ranitidine HCl 300 mg PO DAILY RX: Rosuvastatin Calcium [Crestor] 40 mg PO HS RX: Ranolazine [Ranexa] 1,000 mg PO Q12H RX: Baclofen [Lioresal] 10 mg PO AC-TID RX: Ondansetron [Zofran] 4 mg PO BID PRN PRN Reason: Nausea RX: ARIPiprazole [ARIPiprazole Odt] 15 mg PO HS RX: Loperamide [Imodium] 2 mg PO DAILY PRN PRN Reason: Diarrhea RX: Furosemide [Lasix] 40 mg PO BID@0900,1600 #60 tab RX: Metoprolol Tartrate [Lopressor] 100 mg PO BID #60 tab Dulaglutide [Trulicity] 0.75 mg SQ OROZCO Discharge Medication List RX: metFORMIN HCL 1,000 mg PO AC-BID 07/03/15 [History] RX: Glimepiride 4 mg PO AC-BID 03/10/16 [History] RX: Cholecalciferol (Vitamin D3) [Vitamin D3] 2,000 unit PO DAILY 11/07/16 [ History] RX: Linagliptin [Tradjenta] 5 mg PO HS 12/19/16 [History] RX: Aspirin 81 mg PO DAILY chew 07/27/17 [Rx] RX: Gabapentin [Neurontin] 400 mg PO TID cap 07/27/17 [Rx] RX: Isosorbide Mononitrate ER [Imdur] 30 mg PO DAILY tab.er.24h 07/27/17 [Rx] RX: Lisinopril [Zestril] 2.5 mg PO DAILY tab 07/27/17 [Rx] RX: Nitroglycerin Sl Tabs [Nitrostat] 0.4 mg SUBLINGUAL Q5M PRN tab 07/27/17 [ Rx] RX: Pantoprazole [Protonix] 40 mg PO BID tablet.dr 07/27/17 [Rx] RX: Prasugrel [Effient] 10 mg PO HS tab 07/27/17 [Rx] RX: Primidone [Mysoline] 100 mg PO BID tab 07/27/17 [Rx] RX: Sertraline [Zoloft] 200 mg PO DAILY tab 07/27/17 [Rx] RX: ARIPiprazole [ARIPiprazole Odt] 15 mg PO HS 10/27/17 [History] RX: Albuterol Inhaler [Ventolin Hfa Inhaler] 2 puff INHALATION RT-Q4H PRN [History] RX: Baclofen [Lioresal] 10 mg PO AC-TID 10/27/17 [History] RX: Loperamide [Imodium] 2 mg PO DAILY PRN 10/27/17 [History] RX: Ondansetron [Zofran] 4 mg PO BID PRN 10/27/17 [History] RX: Ranitidine HCl 300 mg PO DAILY 10/27/17 [History] RX: Ranolazine [Ranexa] 1,000 mg PO Q12H 10/27/17 [History] RX: Rosuvastatin Calcium [Crestor] 40 mg PO HS 10/27/17 [History] RX: Spironolactone [Aldactone] 12.5 mg PO DAILY 10/27/17 [History] RX: Furosemide [Lasix] 40 mg PO BID@0900,1600 #60 tab 10/28/17 [Rx] RX: Metoprolol Tartrate [Lopressor] 100 mg PO BID #60 tab 10/28/17 [Rx] Dulaglutide [Trulicity] 0.75 mg SQ OROZCO 11/15/17 [History] Follow up Appointment(s)/Referral(s): Junie New MD [Primary Care Provider] - 1-2 days Activity/Diet/Wound Care/Special Instructions: Patient follows up with a marine electrician helper in [facility]
[2017-11-15 15:54] VITALS: BP 100/67; PULSE 77; RESP 16; TEMP 97
[2017-11-15 17:05] LABS: Glucose,Whole Blood 319 mg/dL (75-99)
[2017-11-15] MEDS ORDERED: Rosuvastatin Calcium [Crestor] 40 MG PO SCH (21:00)
[2017-11-15] MEDS ORDERED: PRASUGREL 10 MG TAB PO SCH (21:00)
== END 2017-11-15 18:07 | disposition short-term general hospital (02) | DRG 282 ==
LOC: EC 19:52 → 6SEL 22:05 → OBSVTOIN 11-15 13:45
PROVIDERS: ADMIT Hospitalist; ATTEND Hospitalist
DX: I21.4 Non-ST elevation (NSTEMI) myocardial infarction (principal); E11.43 Type 2 diabetes mellitus with diabetic autonomic (poly)neuropathy; J45.909 Unspecified asthma, uncomplicated; K31.84 Gastroparesis; I11.0 Hypertensive heart disease with heart failure; I50.9 Heart failure, unspecified; I25.5 Ischemic cardiomyopathy; I25.10 Atherosclerotic heart disease of native coronary artery without angina pectoris; E11.42 Type 2 diabetes mellitus with diabetic polyneuropathy; E78.5 Hyperlipidemia, unspecified; F32.9 Major depressive disorder, single episode, unspecified; I25.2 Old myocardial infarction; L40.9 Psoriasis, unspecified; M54.9 Dorsalgia, unspecified; K21.9 Gastro-esophageal reflux disease without esophagitis; G43.909 Migraine, unspecified, not intractable, without status migrainosus; M19.90 Unspecified osteoarthritis, unspecified site; K44.9 Diaphragmatic hernia without obstruction or gangrene; F43.10 Post-traumatic stress disorder, unspecified; E11.65 Type 2 diabetes mellitus with hyperglycemia; G89.29 Other chronic pain; K29.50 Unspecified chronic gastritis without bleeding; E83.42 Hypomagnesemia; F41.9 Anxiety disorder, unspecified; E66.9 Obesity, unspecified; L98.499 Non-pressure chronic ulcer of skin of other sites with unspecified severity; B95.62 Methicillin resistant Staphylococcus aureus infection as the cause of diseases classified elsewhere; G47.33 Obstructive sleep apnea (adult) (pediatric); Z79.899 Other long term (current) drug therapy; Z86.14 Personal history of Methicillin resistant Staphylococcus aureus infection; Z95.810 Presence of automatic (implantable) cardiac defibrillator; Z95.5 Presence of coronary angioplasty implant and graft; Z79.82 Long term (current) use of aspirin; Z79.84 Long term (current) use of oral hypoglycemic drugs; Z82.0 Family history of epilepsy and other diseases of the nervous system; Z82.49 Family history of ischemic heart disease and other diseases of the circulatory system; Z83.3 Family history of diabetes mellitus; Z86.73 Personal history of transient ischemic attack (TIA), and cerebral infarction without residual deficits; Z88.8 Allergy status to other drugs, medicaments and biological substances; Z87.01 Personal history of pneumonia (recurrent); Z91.5 Personal history of self-harm; Z88.6 Allergy status to analgesic agent; Z88.1 Allergy status to other antibiotic agents; Z91.041 Radiographic dye allergy status; Z88.5 Allergy status to narcotic agent; Z88.0 Allergy status to penicillin; Z91.013 Allergy to seafood; Z79.01 Long term (current) use of anticoagulants; Z80.1 Family history of malignant neoplasm of trachea, bronchus and lung; Z90.49 Acquired absence of other specified parts of digestive tract; Z90.79 Acquired absence of other genital organ(s); Z68.36 Body mass index [BMI] 36.0-36.9, adult; Z87.11 Personal history of peptic ulcer disease; Z86.19 Personal history of other infectious and parasitic diseases
CPT/HCPCS: 36415; 71046; 80053; 82550; 82553; 83735; 83880; 84484; 85025; 85610; 85730; 93005; 96365; 96368; 96375; 96376; 99285

== ENCOUNTER 2017-12-03 20:20 | Inpatient (IN) | payer MEDICARE, OTHER ==
[2017-12-03] MEDS ORDERED: NITROGLYCERIN OINT 1 INCH/GM PACKET TOPICAL STA (20:53)
[2017-12-03] MEDS ORDERED: ASPIRIN 81 MG PO STA (20:53)
--- NOTE | 2017-12-03 20:56 | ED ---
General Adult HPI - General Chief complaint: Chest Pain Stated complaint: weakness/chest heaviness Time Seen by Provider: 12/03/17 20:43 Source: patient, family, RN notes reviewed Mode of arrival: wheelchair Limitations: no limitations - History of Present Illness Initial comments: Patient is a pleasant 41-year-old male presenting to the emergency Department with chest discomfort. Patient was recently discharged from the hospital for CHF. Patient has known significant cardiac history. They believe this is secondary to severe diabetes. Patient has had heaviness in his chest. Patient' s feels very fatigued. Patient is having increased leg edema and associated dyspnea. No fever or cough. Symptoms are similar to previous cardiac problems. - Related Data Home Medications Medication Instructions Recorded Confirmed ARIPiprazole [ARIPiprazole Odt] 15 mg PO HS 10/27/17 12/03/17 Ranitidine HCl 300 mg PO DAILY 10/27/17 12/03/17 Rosuvastatin Calcium [Crestor] 40 mg PO HS 10/27/17 12/03/17 Clopidogrel [Plavix] 75 mg PO DAILY 12/03/17 12/03/17 DAPTOmycin [Cubicin] 850 mg IV DAILY 12/03/17 12/03/17 Ferrous Sulfate [Feosol] 325 mg PO BID 12/03/17 12/03/17 Furosemide [Lasix] 40 mg PO DAILY 12/03/17 12/03/17 Insulin Aspart [NovoLOG 9 unit SQ TID 12/03/17 12/03/17 (formulary)] Insulin Glargine [Lantus] 27 unit SQ HS 12/03/17 12/03/17 Lisinopril [Zestril] 5 mg PO DAILY 12/03/17 12/03/17 Metoprolol Succinate [Toprol XL] 25 mg PO DAILY 12/03/17 12/03/17 Primidone [Mysoline] 500 mg PO BID 12/03/17 12/03/17 Previous Rx's Medication Instructions Recorded Aspirin 81 mg PO DAILY chew 07/27/17 Gabapentin [Neurontin] 400 mg PO TID cap 07/27/17 Nitroglycerin Sl Tabs [Nitrostat] 0.4 mg SUBLINGUAL Q5M PRN tab 07/27/17 Prasugrel [Effient] 10 mg PO HS tab 07/27/17 Allergies Allergy/AdvReac Type Severity Reaction Status Date / Time erythromycin base Allergy Severe Rash/Hives Verified 12/03/17 21:01 [Erythromycin Base] cephalexin monohydrate Allergy Unknown Rash/Hives Verified 12/03/17 21:01 [From Keflex] codeine Allergy Unknown Unknown Verified 12/03/17 21:01 meclizine Allergy Unknown Unknown Verified 12/03/17 21:01 Penicillins Allergy Unknown Rash/Hives Verified 12/03/17 21:01 shellfish derived Allergy Unknown Anaphylaxis Verified 12/03/17 21:01 Fish Containing Products Allergy Anaphylaxis Verified 12/03/17 21:01 [Fish] Iodinated Contrast- Oral and Allergy Anaphylaxis Verified 12/03/17 21:01 IV Dye naproxen AdvReac Unknown Compromises Verified 12/03/17 21:01 Kidney Function atorvastatin calcium AdvReac Myalgia Verified 12/03/17 21:01 [From Lipitor] hydrocodone [From [place]] AdvReac Rapid Verified 12/03/17 21:01 Heart Rate Review of Systems ROS Statement: Those systems with pertinent positive or pertinent negative responses have been documented in the HPI. ROS Other: All systems not noted in ROS Statement are negative. Constitutional: Denies: fever Eyes: Denies: eye pain ENT: Denies: ear pain Respiratory: Reports: dyspnea Cardiovascular: Reports: chest pain Endocrine: Reports: fatigue Gastrointestinal: Denies: abdominal pain Genitourinary: Denies: dysuria Musculoskeletal: Denies: back pain Skin: Denies: rash Neurological: Denies: weakness Past Medical History Past Medical History: Asthma, Coronary Artery Disease (CAD), Chest Pain / Angina , Heart Failure, CVA/TIA, Diabetes Mellitus, GERD/Reflux, Hyperlipidemia, Hypertension, Myocardial Infarction (HI), Osteoarthritis (OA), Pneumonia, Skin Disorder, Sleep Apnea/CPAP/BIPAP Additional Past Medical History / Comment(s): multiple vessel CAD, ischemic cardiomyopathy, diabetic neuropathy bilateral hands and feet, hypertensive cardiovascular disease, SHELIA with no device, chronic gastritis, degenerative disc disease, chronic back pain, depression with hx of suicide attempts, gastroparesis, psoriasis, UTI, migraines, TIA, PUD, hiatal hernia, L rotator cuff tear, bronchitis, pseudoaneurysm L groin post procedure. 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 Date of Last Stent Placement:: 05/25/2017 Type of Cardiac Device: Biventricular Pacemaker, AICD Device Placement Date:: 09/19/15 Past Psychological History: Anxiety, Depression, PTSD Smoking Status: Never smoker Past Alcohol Use History: None Reported Past Drug Use History: None Reported - Past Family History Mother Family Medical History: Coronary Artery Disease (CAD), Myocardial Infarction (HI ) Additional Family Medical History / Comment(s): 7 HI and faulty heart valve. Pt does not know the age when mother had her HI's. Father History Unknown: Yes Additional Family Medical History / Comment(s): Does not know who father is. Brother(s) Family Medical History: Cancer, Congestive Heart Failure (CHF), Myocardial Infarction (HI) Additional Family Medical History / Comment(s): Parkinsons. Pt does not know at what age his brother had an HI. Patient's other brother has lung CA Patient has Family Medical History: No Reported History Additional Family Medical History / Comment(s): There is a strong family history for heart disease, hypertension, and diabetes. General Exam Limitations: no limitations General appearance: alert, in no apparent distress Head exam: Present: atraumatic Eye exam: Present: normal appearance, PERRL ENT exam: Present: normal oropharynx Neck exam: Present: normal inspection Respiratory exam: Present: normal lung sounds bilaterally Cardiovascular Exam: Present: regular rate, normal rhythm Expanded Peripheral pulses: 2+: Radial (R), Radial (L), Dorsalis Pedis (R), Dorsalis Pedis (L) GI/Abdominal exam: Present: soft. Absent: tenderness Extremities exam: Present: pedal edema. Absent: calf tenderness Neurological exam: Present: alert Psychiatric exam: Present: normal affect, normal mood Skin exam: Present: normal color Course Vital Signs 12/03/17 12/03/17 12/03/17 20:33 21:30 22:28 Temperature 98.2 F Pulse Rate 89 88 90 Respiratory 18 18 18 Rate Blood Pressure 90/51 94/63 104/71 O2 Sat by Pulse 100 99 98 Oximetry EKG Findings - EKG Comments: EKG Findings:: Normal sinus rhythm 89. VT 158. QRS 116. QT 354. QTC 4:30. Right axis. Low QRS voltage. Pacer spikes are present. Septal Q waves. No acute ST change. Medical Decision Making - Medical Decision Making Patient reevaluated and resting comfortably in bed. Patient updated. Patient does have positive Hemoccult and decreased hemoglobin. Secondary to this and cardiac history patient will be given 1 unit of blood. Patient does have elevated troponin however this is improved from previous. Significance of troponin is indeterminate at this time pending repeat testing. Patient BNP is somewhat elevated and does have some pedal edema. Lung sounds and chest x-ray without evidence of CHF however. Patient will be receiving 1 unit of blood and need to be reevaluated following this. GI will be placed on consult. Cardiology will placed on consult. Patient will be placed on antibiotics for possible pneumonia. Patient does not meet sepsis criteria. Case was discussed in detail practitioner Lindsey, covering for Dr. Clay, who will admit. - Lab Data Result diagrams: 12/03/17 21:05 12/03/17 21:05 Lab Results 12/03/17 12/03/17 12/03/17 Range/Units 21:05 21:05 21:05 WBC 6.4 (3.8-10.6) k/uL RBC 3.23 L (4.30-5.90) m/uL Hgb 8.0 L D (13.0-17.5) gm/dL Hct 25.7 L (39.0-53.0) % MCV 79.6 L (80.0-100.0) fL MCH 24.8 L (25.0-35.0) pg MCHC 31.1 (31.0-37.0) g/dL RDW 18.1 H (11.5-15.5) % Plt Count 287 (150-450) k/uL Neutrophils % 68 % Lymphocytes % 24 % Monocytes % 4 % Eosinophils % 2 % Basophils % 0 % Neutrophils # 4.4 (1.3-7.7) k/uL Lymphocytes # 1.5 (1.0-4.8) k/uL Monocytes # 0.3 (0-1.0) k/uL Eosinophils # 0.1 (0-0.7) k/uL Basophils # 0.0 (0-0.2) k/uL Hypochromasia Moderate Anisocytosis Slight Microcytosis Slight PT (9.0-12.0) sec INR (<1.2) APTT (22.0-30.0) sec Sodium 130 L (137-145) mmol/L Potassium 5.2 H (3.5-5.1) mmol/L Chloride 102 (98-107) mmol/L Carbon Dioxide 19 L (22-30) mmol/L Anion Gap 9 mmol/L BUN 35 H (9-20) mg/dL Creatinine 1.09 (0.66-1.25) mg/dL Est GFR (CKD-EPI)AfAm >90 (>60 ml/min/1.73 sqM) Est GFR (CKD-EPI)NonAf 84 (>60 ml/min/1.73 sqM) Glucose 110 H (74-99) mg/dL Calcium 8.2 L (8.4-10.2) mg/dL Magnesium 2.1 (1.6-2.3) mg/dL Total Bilirubin 0.4 (0.2-1.3) mg/dL AST 31 (17-59) U/L ALT 52 (21-72) U/L Alkaline Phosphatase 186 H (38-126) U/L Total Creatine Kinase 51 L (55-170) U/L CK-MB (CK-2) 1.8 (0.0-2.4) ng/mL CK-MB (CK-2) Rel Index 3.5 Troponin I 0.799 H* (0.000-0.034) ng/mL NT-Pro-B Natriuret Pep pg/mL Total Protein 4.9 L (6.3-8.2) g/dL Albumin 2.5 L (3.5-5.0) g/dL Stool Occult Blood (Negative) 12/03/17 12/03/17 12/03/17 Range/Units 21:05 21:46 22:12 WBC (3.8-10.6) k/uL RBC (4.30-5.90) m/uL Hgb (13.0-17.5) gm/dL Hct (39.0-53.0) % MCV (80.0-100.0) fL MCH (25.0-35.0) pg MCHC (31.0-37.0) g/dL RDW (11.5-15.5) % Plt Count (150-450) k/uL Neutrophils % % Lymphocytes % % Monocytes % % Eosinophils % % Basophils % % Neutrophils # (1.3-7.7) k/uL Lymphocytes # (1.0-4.8) k/uL Monocytes # (0-1.0) k/uL Eosinophils # (0-0.7) k/uL Basophils # (0-0.2) k/uL Hypochromasia Anisocytosis Microcytosis PT 11.1 (9.0-12.0) sec INR 1.2 H (<1.2) APTT 19.0 L (22.0-30.0) sec Sodium (137-145) mmol/L Potassium (3.5-5.1) mmol/L Chloride (98-107) mmol/L Carbon Dioxide (22-30) mmol/L Anion Gap mmol/L BUN (9-20) mg/dL Creatinine (0.66-1.25) mg/dL Est GFR (CKD-EPI)AfAm (>60 ml/min/1.73 sqM) Est GFR (CKD-EPI)NonAf (>60 ml/min/1.73 sqM) Glucose (74-99) mg/dL Calcium (8.4-10.2) mg/dL Magnesium (1.6-2.3) mg/dL Total Bilirubin (0.2-1.3) mg/dL AST (17-59) U/L ALT (21-72) U/L Alkaline Phosphatase (38-126) U/L Total Creatine Kinase (55-170) U/L CK-MB (CK-2) (0.0-2.4) ng/mL CK-MB (CK-2) Rel Index Troponin I (0.000-0.034) ng/mL NT-Pro-B Natriuret Pep 9520 pg/mL Total Protein (6.3-8.2) g/dL Albumin (3.5-5.0) g/dL Stool Occult Blood Positive (Negative) - Radiology Data Radiology results: image reviewed (Chest x-ray shows possible left lower lobe infiltrate.) Disposition Clinical Impression: Chest pain, Anemia Disposition: ADMITTED IP TO THIS [facility] Condition: Serious Referrals: Junie New MD [Primary Care Provider] - 1-2 days Decision Time: 22:47
[2017-12-03 21:26] LABS: ALT 52 U/L (21-72); AST 31 U/L (17-59); Albumin 2.5 g/dL (3.5-5.0); Alkaline Phosphatase 186 U/L (38-126); Anion Gap 9 mmol/L; Blood Urea Nitrogen 35 mg/dL (9-20); Calcium 8.2 mg/dL (8.4-10.2); Carbon Dioxide 19 mmol/L (22-30); Chloride 102 mmol/L (98-107); Glucose 110 mg/dL (74-99); Magnesium 2.1 mg/dL (1.6-2.3); Potassium 5.2 mmol/L (3.5-5.1); Sodium 130 mmol/L (137-145); Total Bilirubin 0.4 mg/dL (0.2-1.3); Total Protein 4.9 g/dL (6.3-8.2)
[2017-12-03 21:28] LABS: Anisocytosis Slight; Basophils % (A) 0 %; Eosinophils # (A) 0.1 k/uL (0-0.7); Eosinophils % (A) 2 %; HCT 25.7 % (39.0-53.0); Hypochromasia Moderate; Lymphocytes # (A) 1.5 k/uL (1.0-4.8); Lymphocytes % (A) 24 %; MCH 24.8 pg (25.0-35.0); MCHC 31.1 g/dL (31.0-37.0); MCV 79.6 fL (80.0-100.0); Mean Platelet Volume 7.7; Microcytosis Slight; Monocytes # (A) 0.3 k/uL (0-1.0); Monocytes % (A) 4 %; Neutrophils # (A) 4.4 k/uL (1.3-7.7); Neutrophils % (A) 68 %; Platelet Count 287 k/uL (150-450); RBC 3.23 m/uL (4.30-5.90); RDW 18.1 % (11.5-15.5); WBC 6.4 k/uL (3.8-10.6)
[2017-12-03 21:39] LABS: Creatine Kinase MB 1.8 ng/mL (0.0-2.4)
[2017-12-03 21:40] LABS: Troponin I 0.799 ng/mL (0.000-0.034)
--- NOTE | 2017-12-03 21:44 | XR ---
EXAMINATION: XR chest 2V DATE AND TIME: 12/03/2017 9:24 PM ORDERING PROVIDER: Gadiel Morales DO CLINICAL INDICATION: Chest Pain TECHNIQUE: AP and lateral COMPARISON: 11/14/2017 DESCRIPTION: Cardiac pacemaker and EKG leads. Right upper extremity PICC line tip superimposes over t he distal SVC. The lungs are positive for a band of added opacity in the left lower lung which can correlate with a clinical diagnosis of developing left lower lobe bronchopneumonia. No eva pulmonary edema. The pleural spaces are negative. The cardiac silhouette is mildly enlarged. The skeletal structures are intact without focal findings. The soft tissues are unremarkable. IMPRESSION: Left lower lobe band of added opacity, new since the prior study.
[2017-12-03 22:11] LABS: INR 1.2 (<1.2); Prothrombin Time 11.1 sec (9.0-12.0)
[2017-12-03 22:47] LABS: Glucose,Whole Blood 72 mg/dL (75-99)
[2017-12-03] MEDS ORDERED: LEVOFLOXACIN 750MG-D5W PMX 750 MG in DEXTROSE/WATER 1 150ML.BAG IVPB STA (22:48)
[2017-12-03] MEDS ORDERED: PNEUMONIA PROTOCOL UTILIZED 1 EACH MISC PO PRN (22:48)
[2017-12-03] MEDS ORDERED: NITROGLYCERIN SL TABS 0.4 MG TAB SUBLINGUAL PRN (22:48)
[2017-12-03] MEDS: PANTOPRAZOLE 40 MG/10 ML VIAL IVP SCH (23:03)
[2017-12-03 23:55] LABS: Glucose,Whole Blood 95 mg/dL (75-99)
[2017-12-04] MEDS: NITROGLYCERIN OINT 1 INCH/GM PACKET TOPICAL SCH ×5 (06:23→23:24)
[2017-12-04 06:30] LABS: Anisocytosis Slight; Basophils % (A) 1 %; Eosinophils # (A) 0.1 k/uL (0-0.7); Eosinophils % (A) 3 %; HGB 9.2 gm/dL (13.0-17.5); Hypochromasia Moderate; Lymphocytes # (A) 1.4 k/uL (1.0-4.8); Lymphocytes % (A) 25 %; MCH 25.5 pg (25.0-35.0); MCHC 30.7 g/dL (31.0-37.0); MCV 83.2 fL (80.0-100.0); Mean Platelet Volume 6.8; Monocytes # (A) 0.2 k/uL (0-1.0); Monocytes % (A) 4 %; Neutrophils # (A) 3.7 k/uL (1.3-7.7); Neutrophils % (A) 67 %; Platelet Count 358 k/uL (150-450); Poikilocytosis Slight; RBC 3.61 m/uL (4.30-5.90); RDW 18.8 % (11.5-15.5); WBC 5.5 k/uL (3.8-10.6)
[2017-12-04 06:38] LABS: Cholesterol 86 mg/dL (<200); HDL Cholesterol 35 mg/dL (40-60); LDL Cholesterol,Calculated 26 mg/dL (0-99); Triglycerides 126 mg/dL (<150)
[2017-12-04 07:01] LABS: Creatine Kinase MB 1.7 ng/mL (0.0-2.4)
[2017-12-04 07:06] LABS: Troponin I 0.823 ng/mL (0.000-0.034)
--- NOTE | 2017-12-04 08:47 | P.CRDCN ---
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 The patient described symptoms of feeling overall weak, dizzy and lightheaded once he stands up, without any loss of consciousness. He describes heaviness all over the body. No chest pain or chest discomfort. He states also that he has been feeling short of breath with exertion. The EKG showed sinus rhythm with low-voltage QRS. The cardiac enzymes were checked and came in to be slightly abnormal which is likely related to his recent angioplasty and stenting which was performed 2 weeks ago. The blood pressure has been marginally low and his systolic pressure has been between 90- 100 mmHg. I'm going to DC the lisinopril in view of the marginally low blood pressure. Continue the metoprolol. Continue dual antiplatelet therapy with aspirin and Plavix. I will obtain an echocardiogram was Doppler and also I will obtain an orthostatic blood pressure check. We'll continue following up with him. Past Medical History Past Medical History: Asthma, Coronary Artery Disease (CAD), Chest Pain / Angina , Heart Failure, CVA/TIA, Diabetes Mellitus, GERD/Reflux, Hyperlipidemia, Hypertension, Myocardial Infarction (NC), Osteoarthritis (OA), Pneumonia, Skin Disorder, Sleep Apnea/CPAP/BIPAP Additional Past Medical History / Comment(s): multiple vessel CAD, ischemic cardiomyopathy, diabetic neuropathy bilateral hands and feet, hypertensive cardiovascular disease, SHELIA with no device, chronic gastritis, degenerative disc disease, chronic back pain, depression with hx of suicide attempts, gastroparesis, psoriasis, UTI, migraines, TIA, PUD, hiatal hernia, L rotator cuff tear, bronchitis, pseudoaneurysm L groin post procedure. Last Myocardial Infarction Date:: May 2017 History of Any Multi-Drug Resistant Organisms: MRSA Date of last positivie culture/infection: 11/05/2017 (Culture done at [facility]) MDRO Source:: legs Past Surgical History: AICD, Appendectomy, Cholecystectomy, Heart Catheterization With Stent, Hernia Repair Additional Past Surgical History / Comment(s): Pt has had multiple cardiac procedures- caths/stents/PTCA, last stent placed at 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 Date of Last Stent Placement:: 05/25/2017 Type of Cardiac Device: Biventricular Pacemaker, AICD Device Placement Date:: 09/19/15 Past Psychological History: Anxiety, Depression, PTSD Additional Psychological History / Comment(s): Several suicide attempts with use of insulin. PTSD - in 2000 his 3mo old son in his arms (born 2 months premature). Pt states his depression is stable at this time and he denies any suicidal thoughts or plans. He is independent. Pt lives at home with his . Pt drives and he is indp at home. Smoking Status: Never smoker Past Alcohol Use History: None Reported Additional Past Alcohol Use History / Comment(s): Past alcohol abuse - pt states he quit drinking 7yrs ago. Past Drug Use History: None Reported Additional Drug Use History / Comment(s): Pt has smoked marijuana in the past - last smoked in 1999. - Past Family History Mother Family Medical History: Coronary Artery Disease (CAD), Myocardial Infarction (NC ) Additional Family Medical History / Comment(s): 7 NC and faulty heart valve. Pt does not know the age when mother had her NC's. Father History Unknown: Yes Additional Family Medical History / Comment(s): Does not know who father is. Brother(s) Family Medical History: Cancer, Congestive Heart Failure (CHF), Myocardial Infarction (NC) Additional Family Medical History / Comment(s): Parkinsons. Pt does not know at what age his brother had an NC. Patient's other brother has lung CA Patient has Family Medical History: No Reported History Additional Family Medical History / Comment(s): There is a strong family history for heart disease, hypertension, and diabetes. Medications and Allergies Home Medications Medication Instructions Recorded Confirmed Type Aspirin 81 mg PO DAILY chew 07/27/17 12/03/17 Rx Gabapentin [Neurontin] 400 mg PO TID cap 07/27/17 12/03/17 Rx Nitroglycerin Sl Tabs [Nitrostat] 0.4 mg SUBLINGUAL Q5M PRN tab 07/27/17 Rx Prasugrel [Effient] 10 mg PO HS tab 07/27/17 12/03/17 Rx ARIPiprazole [ARIPiprazole Odt] 15 mg PO HS 10/27/17 12/03/17 History Ranitidine HCl 300 mg PO DAILY 10/27/17 12/03/17 History Rosuvastatin Calcium [Crestor] 40 mg PO HS 10/27/17 12/03/17 History Clopidogrel [Plavix] 75 mg PO DAILY 12/03/17 12/03/17 History DAPTOmycin [Cubicin] 850 mg IV DAILY 12/03/17 12/03/17 History Ferrous Sulfate [Feosol] 325 mg PO BID 12/03/17 12/03/17 History Furosemide [Lasix] 40 mg PO DAILY 12/03/17 12/03/17 History Insulin Aspart [NovoLOG 9 unit SQ TID 12/03/17 12/03/17 History (formulary)] Insulin Glargine [Lantus] 27 unit SQ HS 12/03/17 12/03/17 History Lisinopril [Zestril] 5 mg PO DAILY 12/03/17 12/03/17 History Metoprolol Succinate [Toprol XL] 25 mg PO DAILY 12/03/17 12/03/17 History Primidone [Mysoline] 500 mg PO BID 12/03/17 12/03/17 History Allergies Allergy/AdvReac Type Severity Reaction Status Date / Time erythromycin base Allergy Severe Rash/Hives Verified 12/03/17 21:01 [Erythromycin Base] cephalexin monohydrate Allergy Unknown Rash/Hives Verified 12/03/17 21:01 [From Keflex] codeine Allergy Unknown Unknown Verified 12/03/17 21:01 meclizine Allergy Unknown Unknown Verified 12/03/17 21:01 Penicillins Allergy Unknown Rash/Hives Verified 12/03/17 21:01 shellfish derived Allergy Unknown Anaphylaxis Verified 12/03/17 21:01 Fish Containing Products Allergy Anaphylaxis Verified 12/03/17 21:01 [Fish] Iodinated Contrast- Oral and Allergy Anaphylaxis Verified 12/03/17 21:01 IV Dye naproxen AdvReac Unknown Compromises Verified 12/03/17 21:01 Kidney Function atorvastatin calcium AdvReac Myalgia Verified 12/03/17 21:01 [From Lipitor] hydrocodone [From [place]] AdvReac Rapid Verified 12/03/17 21:01 Heart Rate Physical Exam Vitals: Vital Signs Temp Pulse Pulse Resp BP BP Pulse Ox 12/04/17 04:00 97.1 F L 93 18 128/89 97 12/04/17 01:50 97.2 F L 90 18 108/73 98 12/04/17 01:18 97.3 F L 90 18 99/67 99 12/04/17 01:08 97.0 F L 93 18 123/66 96 12/04/17 00:53 97.0 F L 93 18 123/66 96 12/04/17 00:45 97.0 F L 93 18 123/66 96 12/04/17 00:13 98.6 F 89 18 97/65 100 12/03/17 23:09 88 18 94/65 100 12/03/17 22:28 90 18 104/71 98 12/03/17 21:30 88 18 94/63 99 12/03/17 20:33 98.2 F 89 18 90/51 100 Intake and Output 12/03/17 12/04/17 12/04/17 22:59 06:59 14:59 Intake Total 310 Output Total 100 Balance 210 Intake: Blood Product 310 Rc As-1 Unit 310 [id number] Output: Urine 100 Other: Voiding Method Toilet # Voids 1 Weight 107.501 kg 96.9 kg - Constitutional General appearance: no acute distress - Respiratory Respiratory: bilateral: CTA - Cardiovascular Rhythm: regular Heart sounds: normal: S1, S2 Results 12/04/17 06:03 12/03/17 21:05 Cardiac Enzymes 12/03/17 12/03/17 12/04/17 Range/Units 21:05 21:05 06:03 AST 31 (17-59) U/L CK-MB (CK-2) 1.8 1.7 (0.0-2.4) ng/mL Troponin I 0.799 H* 0.823 H* (0.000-0.034) ng/mL Coagulation 12/03/17 Range/Units 21:46 PT 11.1 (9.0-12.0) sec APTT 19.0 L (22.0-30.0) sec Lipids 12/04/17 Range/Units 06:03 Triglycerides 126 (<150) mg/dL Cholesterol 86 (<200) mg/dL HDL Cholesterol 35 L (40-60) mg/dL CBC 12/03/17 12/04/17 Range/Units 21:05 06:03 WBC 6.4 5.5 (3.8-10.6) k/uL RBC 3.23 L 3.61 L (4.30-5.90) m/uL Hgb 8.0 L D 9.2 L (13.0-17.5) gm/dL Hct 25.7 L 30.0 L (39.0-53.0) % Plt Count 287 358 (150-450) k/uL Comprehensive Metabolic Panel 12/03/17 Range/Units 21:05 Sodium 130 L (137-145) mmol/L Potassium 5.2 H (3.5-5.1) mmol/L Chloride 102 (98-107) mmol/L Carbon Dioxide 19 L (22-30) mmol/L BUN 35 H (9-20) mg/dL Creatinine 1.09 (0.66-1.25) mg/dL Glucose 110 H (74-99) mg/dL Calcium 8.2 L (8.4-10.2) mg/dL AST 31 (17-59) U/L ALT 52 (21-72) U/L Alkaline Phosphatase 186 H (38-126) U/L Total Protein 4.9 L (6.3-8.2) g/dL Albumin 2.5 L (3.5-5.0) g/dL Current Medications Generic Name Dose Route Start Last Admin Trade Name Freq PRN Reason Stop Dose Admin Aspirin 325 mg 12/04/17 09:00 Aspirin PO DAILY [facility] Clopidogrel Bisulfate 75 mg 12/04/17 09:00 Plavix PO DAILY [facility] Famotidine 40 mg 12/04/17 09:00 Pepcid PO DAILY [facility] Ferrous Sulfate 325 mg 12/04/17 09:00 Feosol PO BID [facility] Furosemide 40 mg 12/04/17 09:00 Lasix PO DAILY [facility] Gabapentin 400 mg 12/04/17 09:00 Neurontin PO TID [facility] Levofloxacin 750 mg/ IV 150 mls @ 100 mls/hr 12/04/17 22:00 Solution IVPB 12/16/17 22:01 Q24H [facility] Metoprolol Succinate 25 mg 12/04/17 09:00 Toprol Xl PO DAILY [facility] Miscellaneous Information 1 each 12/03/17 22:48 Pneumonia Protocol Utilized PO ONCE PRN Per Protocol Nitroglycerin 1 inch 12/04/17 00:00 12/04/17 07:36 Nitro-Bid Oint TOPICAL Not Given Q6HR [facility] Nitroglycerin 0.4 mg 12/03/17 22:48 Nitrostat SUBLINGUAL Q5M PRN Chest Pain Pantoprazole Sodium 40 mg 12/03/17 22:45 12/03/17 23:03 Protonix IVP 40 mg DAILY JAKE Administration Primidone 500 mg 12/04/17 09:00 Mysoline PO BID [facility] Sodium Chloride 10 ml 12/04/17 09:00 Saline Flush IV BID JAKE Intake and Output 12/03/17 12/04/17 12/04/17 22:59 06:59 14:59 Intake Total 310 Output Total 100 Balance 210 Intake: Blood Product 310 Rc As-1 Unit 310 [id number] Output: Urine 100 Other: Voiding Method Toilet # Voids 1 Weight 107.501 kg 96.9 kg 12/04/17 06:03 12/03/17 21:05 Assessment and Plan Assessment: Assessment #1 coronary artery disease and status post PCI recently with unknown details. The PCI was performed out of the town #2 mild ischemic cardiomyopathy with EF between 40-45% #3 marginal he low blood pressure #4 dizziness and lightheadedness with standing #5 multiple comorbid conditions Plan #1 orthostatic hypotension to be ruled out. We'll obtain orthostatic blood pressure #2 for the time being I would hold the lisinopril #3 obtain an echocardiogram was Doppler #4 continue dual antiplatelet therapy along with a statin next and #5 follow-up with the patient.
[2017-12-04] MEDS ORDERED: FAMOTIDINE 20 MG TAB PO SCH (09:00)
[2017-12-04] MEDS ORDERED: LISINOPRIL 5 MG TAB PO SCH (09:00)
[2017-12-04] MEDS: ASPIRIN 325 MG TAB PO SCH (09:35)
[2017-12-04] MEDS: PRIMIDONE 250 MG TAB PO SCH ×2 (09:35→20:20)
[2017-12-04] MEDS: CLOPIDOGREL 75 MG TAB PO SCH (09:35)
[2017-12-04] MEDS: FERROUS SULFATE 325 MG TAB PO SCH ×2 (09:36→20:20)
[2017-12-04] MEDS: FUROSEMIDE 40 MG TAB PO SCH (09:37)
[2017-12-04] MEDS: METOPROLOL SUCCINATE (ER) 25 MG TAB.ER.24H PO SCH (09:37)
[2017-12-04] MEDS: GABAPENTIN 400 MG CAP PO SCH ×3 (09:37→20:20)
--- NOTE | 2017-12-04 09:42 | P.CONS ---
History of Present Illness - Reason for Consult Consult date: 12/04/17 GI bleed anemia Requesting physician: Safia Clay - History of Present Illness 41-year-old male with an extensive cardiac history including multiple heart catheterizations for multivessel CAD maintained on aspirin Plavix angioplasties with recent stenting over the last few weeks at [facility], cardiomyopathy EF between 40-45%, hypertension, GERD, suicide attempts, and SHELIA. Admitted with chest pain discomfort. Consult requested for new onset of anemia. Admission hemoglobin 8. MCV 79. Platelet 287. He received 1 unit of blood earlier this morning current hemoglobin is 9.2. Previous hemoglobin on the last 2-4 months between 11-13. He reports some lower abdominal discomfort with intermittent loose stools over the last month. No history of anemia. No history of bowel surgeries. Reports a 40-50 pound weight loss over the last month but upon review of medical records patient's weight has been between 108-113 kg over the last 4 months his admission weight was 107 kg. Denies overt bleeding such as hematemesis hematochezia or melena however stool occult blood was positive. He's had multiple EGDs in the past last one was in June 2017 with findings of LA grade D reflux esophagitis with distal linear erosions. No history of colonoscopy. Patient states he was placed on Plavix about 30 days ago but was also taking aspirin and Effient. Presently only on ASA and plavix. Review of Systems Constitutional: Denies fever, chills, sweats, weight gain, or loss. HEENT: Negative for migraines, blurred vision or loss, earaches, drainage, tinnitus, oral mucosal lesions, dysphagia, or odynophagia. Cardiac: Admitted with chest pain. Respiratory: Negative for shortness of breath, hemoptysis, cough, or sputum production. Gastrointestinal: See HPI for pertinent findings. Genitourinary: Negative for hematuria, urgency, frequency, polyuria, dysuria, or penile discharge. Musculoskeletal: Negative for muscle aches, swelling, arthritis, and arthralgias. Neurologic: Negative for stroke or TIA. Endocrine: Negative for thyroid problems. Skin: Negative for rash or itching. Psychiatric: Negative history for depression and anxiety Past Medical History Past Medical History: Asthma, Coronary Artery Disease (CAD), Chest Pain / Angina , Heart Failure, CVA/TIA, Diabetes Mellitus, GERD/Reflux, Hyperlipidemia, Hypertension, Myocardial Infarction ([place]), Osteoarthritis (OA), Pneumonia, Skin Disorder, Sleep Apnea/CPAP/BIPAP Additional Past Medical History / Comment(s): multiple vessel CAD, ischemic cardiomyopathy, diabetic neuropathy bilateral hands and feet, hypertensive cardiovascular disease, SHELIA with no device, chronic gastritis, degenerative disc disease, chronic back pain, depression with hx of suicide attempts, gastroparesis, psoriasis, UTI, migraines, TIA, PUD, hiatal hernia, L rotator cuff tear, bronchitis, pseudoaneurysm L groin post procedure. Last Myocardial Infarction Date:: May 2017 History of Any Multi-Drug Resistant Organisms: MRSA Year Discovered:: 11/05/2017 (Culture done at 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 Date of Last Stent Placement:: 05/25/2017 Type of Cardiac Device: Biventricular Pacemaker, AICD Device Placement Date:: 09/19/15 Past Psychological History: Anxiety, Depression, PTSD Additional Psychological History / Comment(s): Several suicide attempts with use of insulin. PTSD - in 2000 his 3mo old son in his arms (born 2 months premature). Pt states his depression is stable at this time and he denies any suicidal thoughts or plans. He is independent. Pt lives at home with his . Pt drives and he is indp at home. Smoking Status: Never smoker Past Alcohol Use History: None Reported Additional Past Alcohol Use History / Comment(s): Past alcohol abuse - pt states he quit drinking 7yrs ago. Past Drug Use History: None Reported Additional Drug Use History / Comment(s): Pt has smoked marijuana in the past - last smoked in 1999. - Past Family History Mother Family Medical History: Coronary Artery Disease (CAD), Myocardial Infarction ([place] ) Additional Family Medical History / Comment(s): 7 [place] and faulty heart valve. Pt does not know the age when mother had her [place]'s. Father History Unknown: Yes Additional Family Medical History / Comment(s): Does not know who father is. Brother(s) Family Medical History: Cancer, Congestive Heart Failure (CHF), Myocardial Infarction ([place]) Additional Family Medical History / Comment(s): Parkinsons. Pt does not know at what age his brother had an [place]. Patient's other brother has lung CA Patient has Family Medical History: No Reported History Additional Family Medical History / Comment(s): There is a strong family history for heart disease, hypertension, and diabetes. Medications and Allergies Home Medications Medication Instructions Recorded Confirmed Type Aspirin 81 mg PO DAILY chew 07/27/17 12/03/17 Rx Gabapentin [Neurontin] 400 mg PO TID cap 07/27/17 12/03/17 Rx Nitroglycerin Sl Tabs [Nitrostat] 0.4 mg SUBLINGUAL Q5M PRN tab 07/27/17 Rx Prasugrel [Effient] 10 mg PO HS tab 07/27/17 12/03/17 Rx ARIPiprazole [ARIPiprazole Odt] 15 mg PO HS 10/27/17 12/03/17 History Ranitidine HCl 300 mg PO DAILY 10/27/17 12/03/17 History Rosuvastatin Calcium [Crestor] 40 mg PO HS 10/27/17 12/03/17 History Clopidogrel [Plavix] 75 mg PO DAILY 12/03/17 12/03/17 History DAPTOmycin [Cubicin] 850 mg IV DAILY 12/03/17 12/03/17 History Ferrous Sulfate [Feosol] 325 mg PO BID 12/03/17 12/03/17 History Furosemide [Lasix] 40 mg PO DAILY 12/03/17 12/03/17 History Insulin Aspart [NovoLOG 9 unit SQ TID 12/03/17 12/03/17 History (formulary)] Insulin Glargine [Lantus] 27 unit SQ HS 12/03/17 12/03/17 History Lisinopril [Zestril] 5 mg PO DAILY 12/03/17 12/03/17 History Metoprolol Succinate [Toprol XL] 25 mg PO DAILY 12/03/17 12/03/17 History Primidone [Mysoline] 500 mg PO BID 12/03/17 12/03/17 History Allergies Allergy/AdvReac Type Severity Reaction Status Date / Time erythromycin base Allergy Severe Rash/Hives Verified 12/03/17 21:01 [Erythromycin Base] cephalexin monohydrate Allergy Unknown Rash/Hives Verified 12/03/17 21:01 [From Keflex] codeine Allergy Unknown Unknown Verified 12/03/17 21:01 meclizine Allergy Unknown Unknown Verified 12/03/17 21:01 Penicillins Allergy Unknown Rash/Hives Verified 12/03/17 21:01 shellfish derived Allergy Unknown Anaphylaxis Verified 12/03/17 21:01 Fish Containing Products Allergy Anaphylaxis Verified 12/03/17 21:01 [Fish] Iodinated Contrast- Oral and Allergy Anaphylaxis Verified 12/03/17 21:01 IV Dye naproxen AdvReac Unknown Compromises Verified 12/03/17 21:01 Kidney Function atorvastatin calcium AdvReac Myalgia Verified 12/03/17 21:01 [From Lipitor] hydrocodone [From [place]] AdvReac Rapid Verified 12/03/17 21:01 Heart Rate Physical Exam Vitals: Vital Signs Temp Pulse Pulse Resp BP BP Pulse Ox 12/04/17 08:00 97.0 F L 99 18 131/80 100 12/04/17 04:00 97.1 F L 93 18 128/89 97 12/04/17 01:50 97.2 F L 90 18 108/73 98 12/04/17 01:18 97.3 F L 90 18 99/67 99 12/04/17 01:08 97.0 F L 93 18 123/66 96 12/04/17 00:53 97.0 F L 93 18 123/66 96 12/04/17 00:45 97.0 F L 93 18 123/66 96 12/04/17 00:13 98.6 F 89 18 97/65 100 12/03/17 23:09 88 18 94/65 100 12/03/17 22:28 90 18 104/71 98 12/03/17 21:30 88 18 94/63 99 12/03/17 20:33 98.2 F 89 18 90/51 100 Intake and Output 12/03/17 12/04/17 12/04/17 22:59 06:59 14:59 Intake Total 310 Output Total 100 Balance 210 Intake: Blood Product 310 Rc As-1 Unit 310 [id number] Output: Urine 100 Other: Voiding Method Toilet # Voids 1 Weight 107.501 kg 96.9 kg General appearance: The patient is alert, oriented, in no acute distress. HET: Head is normocephalic and atraumatic. Pupils are equal and reactive. Oropharynx is clear without lesions. Neck: Supple without lymphadenopathy. Trachea midline. Heart: S1 S2. Regular rate and rhythm. Lungs: No crackles or wheezes are heard. Abdomen: Soft, very mild bilateral lower abdomen tenderness, nondistended with bowel sounds. No peritoneal signs. No palpable organomegaly or masses. Extremities: Normal skin color and turgor. No cyanosis, rash, ulceration, clubbing, or edema. Radial and pedal pulses are 2/4 bilaterally. Neurological: No focal deficits. Strength and sensation are grossly intact. Results CBC & Chem 7: 12/04/17 06:03 12/03/17 21:05 Labs: Abnormal Lab Results - Last 24 Hours (Table) 12/03/17 12/03/17 12/03/17 Range/Units 21:05 21:05 21:05 RBC 3.23 L (4.30-5.90) m/uL Hgb 8.0 L D (13.0-17.5) gm/dL Hct 25.7 L (39.0-53.0) % MCV 79.6 L (80.0-100.0) fL MCH 24.8 L (25.0-35.0) pg MCHC (31.0-37.0) g/dL RDW 18.1 H (11.5-15.5) % INR (<1.2) APTT (22.0-30.0) sec Sodium 130 L (137-145) mmol/L Potassium 5.2 H (3.5-5.1) mmol/L Carbon Dioxide 19 L (22-30) mmol/L BUN 35 H (9-20) mg/dL Glucose 110 H (74-99) mg/dL POC Glucose (mg/dL) (75-99) mg/dL Calcium 8.2 L (8.4-10.2) mg/dL Alkaline Phosphatase 186 H (38-126) U/L Total Creatine Kinase 51 L (55-170) U/L Troponin I 0.799 H* (0.000-0.034) ng/mL Total Protein 4.9 L (6.3-8.2) g/dL Albumin 2.5 L (3.5-5.0) g/dL HDL Cholesterol (40-60) mg/dL Crossmatch 12/03/17 12/03/17 12/03/17 Range/Units 21:46 22:45 22:51 RBC (4.30-5.90) m/uL Hgb (13.0-17.5) gm/dL Hct (39.0-53.0) % MCV (80.0-100.0) fL MCH (25.0-35.0) pg MCHC (31.0-37.0) g/dL RDW (11.5-15.5) % INR 1.2 H (<1.2) APTT 19.0 L (22.0-30.0) sec Sodium (137-145) mmol/L Potassium (3.5-5.1) mmol/L Carbon Dioxide (22-30) mmol/L BUN (9-20) mg/dL Glucose (74-99) mg/dL POC Glucose (mg/dL) 72 L (75-99) mg/dL Calcium (8.4-10.2) mg/dL Alkaline Phosphatase (38-126) U/L Total Creatine Kinase (55-170) U/L Troponin I (0.000-0.034) ng/mL Total Protein (6.3-8.2) g/dL Albumin (3.5-5.0) g/dL HDL Cholesterol (40-60) mg/dL Crossmatch See Detail 12/04/17 12/04/17 12/04/17 Range/Units 06:03 06:03 06:03 RBC 3.61 L (4.30-5.90) m/uL Hgb 9.2 L (13.0-17.5) gm/dL Hct 30.0 L (39.0-53.0) % MCV (80.0-100.0) fL MCH (25.0-35.0) pg MCHC 30.7 L (31.0-37.0) g/dL RDW 18.8 H (11.5-15.5) % INR (<1.2) APTT (22.0-30.0) sec Sodium (137-145) mmol/L Potassium (3.5-5.1) mmol/L Carbon Dioxide (22-30) mmol/L BUN (9-20) mg/dL Glucose (74-99) mg/dL POC Glucose (mg/dL) (75-99) mg/dL Calcium (8.4-10.2) mg/dL Alkaline Phosphatase (38-126) U/L Total Creatine Kinase 43 L (55-170) U/L Troponin I 0.823 H* (0.000-0.034) ng/mL Total Protein (6.3-8.2) g/dL Albumin (3.5-5.0) g/dL HDL Cholesterol 35 L (40-60) mg/dL Crossmatch Assessment and Plan (1) Microcytic hypochromic anemia Narrative/Plan: 41-year-old male with extensive cardiac history and recent cardiac stenting maintained on dual antiplatelet medications presents with chest pain and new onset of symptomatic microcytic hypochromic anemia suspect a component of acute blood loss with positive stool guaiac. EGD 5 months ago reported LA grade D esophagitis with distal linear erosions no history of colonoscopy. Colonic source cannot be excluded for his new onset of anemia. Current Visit: Yes Status: Acute Code(s): D50.9 - IRON DEFICIENCY ANEMIA, UNSPECIFIED SNOMED Code(s): 71066920 (2) Stool guaiac positive Current Visit: Yes Status: Acute Code(s): R19.5 - OTHER FECAL ABNORMALITIES SNOMED Code(s): 76640602 (3) GERD (gastroesophageal reflux disease) Current Visit: Yes Status: Acute Code(s): K21.9 - GASTRO-ESOPHAGEAL REFLUX DISEASE WITHOUT ESOPHAGITIS SNOMED Code(s): 165657681 (4) CAD (coronary artery disease) Current Visit: No Status: Acute Code(s): I25.10 - ATHSCL HEART DISEASE OF [place] CORONARY ARTERY W/O ANG PCTRS SNOMED Code(s): 71322211 (5) Cardiomyopathy Current Visit: No Status: Acute Code(s): I42.9 - CARDIOMYOPATHY, UNSPECIFIED SNOMED Code(s): 12950797 Plan: 1. Full liquid diet. No overt GI bleeding at this time. EGD colonoscopy discussed for evaluation of anemia. Case was discussed with cardiology Dr. Dewey it is understood the patient's antiplatelet therapy cannot be held at this time secondary to recent coronary intervention for colonoscopy which puts patient at an increased bleeding risk if polypectomy and or biopsies need to be obtained but from a cardiac clearance may proceed with endoscopy as recommended by GI. Case was also discussed with anesthesia Dr. Hernandez and clearance was given. Unsure patient was taking 3 antiplatelet agents over the last month according to his history. He is presently on dual antiplatelet therapy Plavix and aspirin which will be continued. 2. Daily CBC. Will follow closely with you. The supervisor maintenance has discussed the risks, benefits and alternative therapies for the above-mentioned procedure and for both sedation/analgesia as well as necessary blood product administration, if indicated, as they pertain to this patient. The patient has indicated understanding and acceptance of the risks and procedures discussed. Thank you for this kind referral and the opportunity to participate in the care of your patient. This consultation was discussed with Dr. Hein. The impression and plan of care have been directed as dictated.
[2017-12-04 10:34] LABS: Creatine Kinase MB 1.6 ng/mL (0.0-2.4)
[2017-12-04 10:40] LABS: Troponin I 0.751 ng/mL (0.000-0.034)
--- NOTE | 2017-12-04 11:53 | ECHOF ---
Referral Reason:CAD MEASUREMENTS -------- HEIGHT: 165.1 cm WEIGHT: 96.6 kg BP: RVIDd: 2.5 cm (< 3.3) IVSd: 1.3 cm (0.6 - 1.1) LVIDd: 5.1 cm (3.9 - 5.3) LVPWd: 1.2 cm (0.6 - 1.1) IVSs: 1.5 cm LVIDs: 4.3 cm LVPWs: 0.9 cm LA Diam: 3.8 cm (2.7 - 3.8) LAESV Index (A-L): 33.82 ml/m MV EXCURSION: 16.312 mm (> 18.000) MV EF SLOPE: 61 mm/s (70 - 150) EPSS: 1.1 cm MV E Benjy: 0.92 m/s MV DecT: 99 ms MV A Benjy: 0.38 m/s MV E/A Ratio: 2.39 RAP: 5.00 mmHg RVSP: 37.09 mmHg FINDINGS -------- Paced rhythm. This was a techncally difficult study with suboptimal views, , Lumason utilized for enhancement of im ages. The left ventricular size is normal. Overall left ventricular systolic function is severely impaire d with, an EF between 20 - 25 %. The right ventricle is normal in size. The left atrial size is normal. LA is midly dilated 29-33ml/m2. The right atrial size is normal. 5.0mg OF Lumason UTLIZED: 2 OR MORE WALL SEGMENTS NOT VISUALIZED. The aortic valve is trileaflet, and appears structurally normal. No aortic stenosis or regurgitation. Mild mitral annular calcification present. Mild mitral regurgitation is present. Mild tricuspid regurgitation present. There is mild pulmonary hypertension. The right ventricular systolic pressure, as measured by Doppler, is 37.09mmHg. There is no pulmonic regurgitation present. The aortic root size is normal. There is no pericardial effusion. CONCLUSIONS -------- 1. This was a techncally difficult study with suboptimal views, , Lumason utilized for enhancement of images. 2. The left ventricular size is normal. 3. Overall left ventricular systolic function is severely impaired with, an EF between 20 - 25 %. 4. The right ventricle is normal in size. 5. The left atrial size is normal. 6. LA is midly dilated 29-33ml/m2. 7. The right atrial size is normal. 8. 5.0mg OF [place] UTLIZED: 2 OR MORE WALL SEGMENTS NOT VISUALIZED. 9. The aortic valve is trileaflet, and appears structurally normal. No aortic stenosis or regurgitati on. 10. Mild mitral annular calcification present. 11. Mild mitral regurgitation is present. 12. Mild tricuspid regurgitation present. 13. There is mild pulmonary hypertension. 14. The right ventricular systolic pressure, as measured by Doppler, is 37.09mmHg. 15. There is no pulmonic regurgitation present. 16. The aortic root size is normal. 17. There is no pericardial effusion. VETERINARY DENTIST: Jossie Cooper RDCS
--- NOTE | 2017-12-04 12:48 | P.HPIM ---
History of Present Illness H&P Date: 12/04/17 Chief Complaint: Shortness of breath Patient is a 41-year-old male with a known history of hypertension, diabetes type 2 insulin-dependent, morbid obesity, multivessel coronary artery disease and recent stent placement 2 at [facility] about few weeks ago, cardiomyopathy ejection fraction 40-45% and depression with history of suicide attempts in the past came to ER with complaints of chest discomfort and not feeling well. Patient was found to have hemoglobin of 8.0 on admission and patient underwent 1 unit PRBC transfusion with hemoglobin and up to 9.2 now. Hemoglobin was 11 about 2 months ago. Patient denied any nausea or vomiting. Patient does not have any dark-colored stools or hematemesis or bright blood with stool. FOBT positive otherwise. Patient did have previous EGD in June 2017 showed reflux esophagitis with distal linear erosions. EKG showed sinus rhythm with low voltage QRS Troponin 0.83 and 0.517 Patient currently has been taking aspirin Lasix and Effient at home. Chest x-ray showed left lower lobe band of added opacity. New From previous study BNP 9520 Review of Systems Constitutional: Patient denies any fever or chills . He does have generalized weakness and complaints of weight loss. Abdomen: Patient denied nausea vomiting and diarrhea and abdominal pain. Cardiovascular: Denied any chest tightness. Patient does have shortness of breath and leg swelling.. Respiratory: patient denied any cough is from production. No shortness of breath Neurologic: Patient denied any numbness or tingling headache. Musculoskeletal: Patient denies any complaints of joint swelling or deformity. Skin: Negative Psychiatric: Negative Endocrine: No heat or cold intolerance. No recent weight gain. Genitourinary: No dysuria or hematuria. All other 14 point ROS negative except the above Past Medical History Past Medical History: Asthma, Coronary Artery Disease (CAD), Chest Pain / Angina , Heart Failure, CVA/TIA, Diabetes Mellitus, GERD/Reflux, Hyperlipidemia, Hypertension, Myocardial Infarction (OR), Osteoarthritis (OA), Pneumonia, Skin Disorder, Sleep Apnea/CPAP/BIPAP Additional Past Medical History / Comment(s): multiple vessel CAD, ischemic cardiomyopathy, diabetic neuropathy bilateral hands and feet, hypertensive cardiovascular disease, SHELIA with no device, chronic gastritis, degenerative disc disease, chronic back pain, depression with hx of suicide attempts, gastroparesis, psoriasis, UTI, migraines, TIA, PUD, hiatal hernia, L rotator cuff tear, bronchitis, pseudoaneurysm L groin post procedure. Last Myocardial Infarction Date:: May 2017 History of Any Multi-Drug Resistant Organisms: MRSA Date of last positivie culture/infection: 11/05/2017 (Culture done at [facility]) MDRO Source:: legs Past Surgical History: AICD, Appendectomy, Cholecystectomy, Heart Catheterization With Stent, Hernia Repair Additional Past Surgical History / Comment(s): Pt has had multiple cardiac procedures- caths/stents/PTCA, last stent placed at [facility] - May 2017, SAVANNAH, R inguinal hernia repair, umbilical hernia repair, right orchiectomy due to necrosis, right hand surgery r/t injury, colonoscopy, cystoscopy ( scraped bladder parrish) Past Anesthesia/Blood Transfusion Reactions: No Reported Reaction Additional Past Anesthesia/Blood Transfusion Reaction / Comment(s): . Date of Last Stent Placement:: 05/25/2017 Type of Cardiac Device: Biventricular Pacemaker, AICD Device Placement Date:: 09/19/15 Past Psychological History: Anxiety, Depression, PTSD Additional Psychological History / Comment(s): Several suicide attempts with use of insulin. PTSD - in 2000 his 3mo old son in his arms (born 2 months premature). Pt states his depression is stable at this time and he denies any suicidal thoughts or plans. He is independent. Pt lives at home with his . Pt drives and he is indp at home. Smoking Status: Never smoker Past Alcohol Use History: None Reported Additional Past Alcohol Use History / Comment(s): Past alcohol abuse - pt states he quit drinking 7yrs ago. Past Drug Use History: None Reported Additional Drug Use History / Comment(s): Pt has smoked marijuana in the past - last smoked in 1999. - Past Family History Mother Family Medical History: Coronary Artery Disease (CAD), Myocardial Infarction (OR ) Additional Family Medical History / Comment(s): 7 OR and faulty heart valve. Pt does not know the age when mother had her OR's. Father History Unknown: Yes Additional Family Medical History / Comment(s): Does not know who father is. Brother(s) Family Medical History: Cancer, Congestive Heart Failure (CHF), Myocardial Infarction (OR) Additional Family Medical History / Comment(s): Parkinsons. Pt does not know at what age his brother had an OR. Patient's other brother has lung CA Patient has Family Medical History: No Reported History Additional Family Medical History / Comment(s): There is a strong family history for heart disease, hypertension, and diabetes. Medications and Allergies Home Medications Medication Instructions Recorded Confirmed Type Aspirin 81 mg PO DAILY chew 07/27/17 12/03/17 Rx Gabapentin [Neurontin] 400 mg PO TID cap 07/27/17 12/03/17 Rx Nitroglycerin Sl Tabs [Nitrostat] 0.4 mg SUBLINGUAL Q5M PRN tab 07/27/17 Rx Prasugrel [Effient] 10 mg PO HS tab 07/27/17 12/03/17 Rx ARIPiprazole [ARIPiprazole Odt] 15 mg PO HS 10/27/17 12/03/17 History Ranitidine HCl 300 mg PO DAILY 10/27/17 12/03/17 History Rosuvastatin Calcium [Crestor] 40 mg PO HS 10/27/17 12/03/17 History Clopidogrel [Plavix] 75 mg PO DAILY 12/03/17 12/03/17 History DAPTOmycin [Cubicin] 850 mg IV DAILY 12/03/17 12/03/17 History Ferrous Sulfate [Feosol] 325 mg PO BID 12/03/17 12/03/17 History Furosemide [Lasix] 40 mg PO DAILY 12/03/17 12/03/17 History Insulin Aspart [NovoLOG 9 unit SQ TID 12/03/17 12/03/17 History (formulary)] Insulin Glargine [Lantus] 27 unit SQ HS 12/03/17 12/03/17 History Lisinopril [Zestril] 5 mg PO DAILY 12/03/17 12/03/17 History Metoprolol Succinate [Toprol XL] 25 mg PO DAILY 12/03/17 12/03/17 History Primidone [Mysoline] 500 mg PO BID 12/03/17 12/03/17 History Allergies Allergy/AdvReac Type Severity Reaction Status Date / Time erythromycin base Allergy Severe Rash/Hives Verified 12/03/17 21:01 [Erythromycin Base] cephalexin monohydrate Allergy Unknown Rash/Hives Verified 12/03/17 21:01 [From Keflex] codeine Allergy Unknown Unknown Verified 12/03/17 21:01 meclizine Allergy Unknown Unknown Verified 12/03/17 21:01 Penicillins Allergy Unknown Rash/Hives Verified 12/03/17 21:01 shellfish derived Allergy Unknown Anaphylaxis Verified 12/03/17 21:01 Fish Containing Products Allergy Anaphylaxis Verified 12/03/17 21:01 [Fish] Iodinated Contrast- Oral and Allergy Anaphylaxis Verified 12/03/17 21:01 IV Dye naproxen AdvReac Unknown Compromises Verified 12/03/17 21:01 Kidney Function atorvastatin calcium AdvReac Myalgia Verified 12/03/17 21:01 [From Lipitor] hydrocodone [From [place]] AdvReac Rapid Verified 12/03/17 21:01 Heart Rate Physical Exam Vitals: Vital Signs Temp Pulse Pulse Resp BP BP Pulse Ox 12/04/17 08:00 97.0 F L 99 18 131/80 100 12/04/17 04:00 97.1 F L 93 18 128/89 97 12/04/17 01:50 97.2 F L 90 18 108/73 98 12/04/17 01:18 97.3 F L 90 18 99/67 99 12/04/17 01:08 97.0 F L 93 18 123/66 96 12/04/17 00:53 97.0 F L 93 18 123/66 96 12/04/17 00:45 97.0 F L 93 18 123/66 96 12/04/17 00:13 98.6 F 89 18 97/65 100 12/03/17 23:09 88 18 94/65 100 12/03/17 22:28 90 18 104/71 98 12/03/17 21:30 88 18 94/63 99 12/03/17 20:33 98.2 F 89 18 90/51 100 Intake and Output 12/03/17 12/04/17 12/04/17 22:59 06:59 14:59 Intake Total 310 Output Total 100 Balance 210 Intake: Blood Product 310 Rc As-1 Unit 310 [id number] Output: Urine 100 Other: Voiding Method Toilet # Voids 1 Weight 107.501 kg 96.9 kg PHYSICAL EXAMINATION: Patient is lying in the bed comfortably, no acute distress, awake alert and oriented.. HEENT: Normocephalic. Neck is supple. Pupils reactive. Nostrils clear. Oral cavity is moist. Ears reveal no drainage. Neck reveals no JVD, carotid bruits, or thyromegaly. CHEST EXAMINATION: Trachea is central. Symmetrical expansion. Bibasilar diminished air entry Lung hendrix clear to auscultation and percussion. CARDIAC: Normal S1, S2 with no gallops. No murmurs ABDOMEN: Soft. Bowel sounds normal. No organomegaly. No abdominal bruits. Extremities: 2+ edema. No clubbing or cyanosis Neurologically awake, alert, oriented x3 with well-coordinated movements. No focal deficits noted Skin: No rash or skin lesions. Psychiatric: Coperative. Seems depressed could not be assessed completely. Musculoskeletal: No joint swelling or deformity. Normal range of motion. Results CBC & Chem 7: 12/04/17 06:03 12/03/17 21:05 Labs: Abnormal Lab Results - Last 24 Hours (Table) 12/03/17 12/03/17 12/03/17 Range/Units 21:05 21:05 21:05 RBC 3.23 L (4.30-5.90) m/uL Hgb 8.0 L D (13.0-17.5) gm/dL Hct 25.7 L (39.0-53.0) % MCV 79.6 L (80.0-100.0) fL MCH 24.8 L (25.0-35.0) pg MCHC (31.0-37.0) g/dL RDW 18.1 H (11.5-15.5) % INR (<1.2) APTT (22.0-30.0) sec Sodium 130 L (137-145) mmol/L Potassium 5.2 H (3.5-5.1) mmol/L Carbon Dioxide 19 L (22-30) mmol/L BUN 35 H (9-20) mg/dL Glucose 110 H (74-99) mg/dL POC Glucose (mg/dL) (75-99) mg/dL Calcium 8.2 L (8.4-10.2) mg/dL Alkaline Phosphatase 186 H (38-126) U/L Total Creatine Kinase 51 L (55-170) U/L Troponin I 0.799 H* (0.000-0.034) ng/mL Total Protein 4.9 L (6.3-8.2) g/dL Albumin 2.5 L (3.5-5.0) g/dL HDL Cholesterol (40-60) mg/dL Crossmatch 12/03/17 12/03/17 12/03/17 Range/Units 21:46 22:45 22:51 RBC (4.30-5.90) m/uL Hgb (13.0-17.5) gm/dL Hct (39.0-53.0) % MCV (80.0-100.0) fL MCH (25.0-35.0) pg MCHC (31.0-37.0) g/dL RDW (11.5-15.5) % INR 1.2 H (<1.2) APTT 19.0 L (22.0-30.0) sec Sodium (137-145) mmol/L Potassium (3.5-5.1) mmol/L Carbon Dioxide (22-30) mmol/L BUN (9-20) mg/dL Glucose (74-99) mg/dL POC Glucose (mg/dL) 72 L (75-99) mg/dL Calcium (8.4-10.2) mg/dL Alkaline Phosphatase (38-126) U/L Total Creatine Kinase (55-170) U/L Troponin I (0.000-0.034) ng/mL Total Protein (6.3-8.2) g/dL Albumin (3.5-5.0) g/dL HDL Cholesterol (40-60) mg/dL Crossmatch See Detail 12/04/17 12/04/17 12/04/17 Range/Units 06:03 06:03 06:03 RBC 3.61 L (4.30-5.90) m/uL Hgb 9.2 L (13.0-17.5) gm/dL Hct 30.0 L (39.0-53.0) % MCV (80.0-100.0) fL MCH (25.0-35.0) pg MCHC 30.7 L (31.0-37.0) g/dL RDW 18.8 H (11.5-15.5) % INR (<1.2) APTT (22.0-30.0) sec Sodium (137-145) mmol/L Potassium (3.5-5.1) mmol/L Carbon Dioxide (22-30) mmol/L BUN (9-20) mg/dL Glucose (74-99) mg/dL POC Glucose (mg/dL) (75-99) mg/dL Calcium (8.4-10.2) mg/dL Alkaline Phosphatase (38-126) U/L Total Creatine Kinase 43 L (55-170) U/L Troponin I 0.823 H* (0.000-0.034) ng/mL Total Protein (6.3-8.2) g/dL Albumin (3.5-5.0) g/dL HDL Cholesterol 35 L (40-60) mg/dL Crossmatch Thrombosis Risk Factor Assmnt - DVT/VTE Prophylaxis DVT/VTE Prophylaxis: Mechanical Prophylaxis ordered - Choose All That Apply Each Factor Represents 1 point: Age 41-60 years Thrombosis Risk Factor Assessment Total Risk Factor Score: 1 Thrombosis Risk Factor Assessment Level: Low Risk Assessment and Plan Assessment: Acute blood Loss anemia possible GI bleed. Hemoglobin previously around 11---> 8 on admission. Status post 1 unit PRBC transfusion. FOBT positive Microcytic hypochromic iron deficiency anemia Esophagitis history Recent cardiac catheterization status post PCI with 2 stent placement at [facility] Mild hyperkalemia Hypovolemic hyponatremia likely Chronic CHF with systolic dysfunction Mild ischemic cardio myopathy ejection fraction 40-45% with history of AICD placement Hypertension. Currently hypotensive Diabetes type 2 insulin-dependent Coronary artery disease multivessel. morbid obesity with BMI 38.1 Hypoalbuminemia with mild protein calorie malnutrition. Albumin 2.5 History of CVA/TIA GERD Hyperlipidemia Obstructive sleep apnea on CPAP at home Diabetic peripheral neuropathy of bilateral hands and feet Degenerative disc disease and chronic back pain Depression with history of suicide attempts Gastroparesis Sodium is History of migraine headaches Anxiety depression and PTSD Morbid obesity BMI 38.1 DVT prophylaxis with SCDs Plan: Patient will be continued on aspirin Plavix and metoprolol. Lisinopril held due to hypotension. Monitor H&H. Patient is status post 1 unit PRBC. GI is planning for EGD and colonoscopy upon cardiac clearance. Continue PPI IV daily Continue the insulin sliding scale for now. Patient is on Lantus 27 units along with 8 units of NovoLog 3 times a day before meals.. Monitor CBC and follow up closely. Further recommendations based on the clinical course. Prognosis is guarded with multiple medical problems and comorbid conditions Time with Patient: Greater than 30
--- NOTE | 2017-12-04 13:51 | XR ---
EXAMINATION TYPE: XR chest 2V DATE OF EXAM: 12/04/2017 COMPARISON: 12/03/2017 HISTORY: Pneumonia. Follow-up. TECHNIQUE: Frontal and lateral views of the chest are obtained. FINDINGS: There is improved aeration of the retrocardiac airspace in comparison to the prior of 12/03 suggesting resolving pneumonia or atelectasis. Multi lead left-sided cardiac device remains wit h cardiomegaly. Right-sided PICC line is also seen, unchanged in position. Remainder of the lungs are clear. No sizable pneumothorax. IMPRESSION: Improving retrocardiac opacity that may represent resolving pneumonia or atelectasis.
[2017-12-04] MEDS: PANTOPRAZOLE 40 MG/10 ML VIAL IVP SCH (14:59)
[2017-12-04] MEDS ORDERED: PEG 3350-NA SULF,BICARB,CL/KCL 4,000 ML BOTTLE PO ONE (16:00)
[2017-12-04 17:09] LABS: Glucose,Whole Blood 179 mg/dL (75-99)
[2017-12-04] MEDS: INSULIN ASPART 100 UNIT/ML 1 ML 10 ML VIAL SQ SCH ×2 (17:28→21:26)
[2017-12-04] MEDS: ARIPiprazole 15 MG TAB PO SCH (20:20)
[2017-12-04] MEDS: LEVOFLOXACIN 750MG-D5W PMX 750 MG in DEXTROSE/WATER 1 150ML.BAG IVPB SCH (20:26)
[2017-12-04 20:57] LABS: Glucose,Whole Blood 124 mg/dL (75-99)
[2017-12-04] MEDS ORDERED: ONDANSETRON 4 MG/2 ML VIAL IVP PRN (20:57)
[2017-12-05 01:52] LABS: Hemoglobin A1C 9.5 % (4.0-6.0)
[2017-12-05 06:07] LABS: Glucose,Whole Blood 117 mg/dL (75-99)
[2017-12-05] MEDS: NITROGLYCERIN OINT 1 INCH/GM PACKET TOPICAL SCH ×4 (06:12→23:10)
[2017-12-05] MEDS: INSULIN ASPART 100 UNIT/ML 1 ML 10 ML VIAL SQ SCH ×7 (06:12→21:20)
[2017-12-05 06:56] LABS: Anisocytosis Slight; Basophils % (A) 1 %; Eosinophils # (A) 0.1 k/uL (0-0.7); Eosinophils % (A) 3 %; HCT 28.2 % (39.0-53.0); Hypochromasia Moderate; Lymphocytes # (A) 1.1 k/uL (1.0-4.8); Lymphocytes % (A) 27 %; MCH 26.2 pg (25.0-35.0); MCHC 32.1 g/dL (31.0-37.0); MCV 81.5 fL (80.0-100.0); Mean Platelet Volume 7.1; Microcytosis Slight; Monocytes # (A) 0.2 k/uL (0-1.0); Monocytes % (A) 6 %; Neutrophils # (A) 2.5 k/uL (1.3-7.7); Neutrophils % (A) 62 %; Platelet Count 294 k/uL (150-450); Poikilocytosis Slight; RBC 3.45 m/uL (4.30-5.90); RDW 18.6 % (11.5-15.5); WBC 4.1 k/uL (3.8-10.6)
[2017-12-05 07:18] LABS: Anion Gap 9 mmol/L; Blood Urea Nitrogen 17 mg/dL (9-20); Calcium 8.3 mg/dL (8.4-10.2); Carbon Dioxide 22 mmol/L (22-30); Chloride 104 mmol/L (98-107); Glucose 110 mg/dL (74-99); Potassium 4.9 mmol/L (3.5-5.1); Sodium 135 mmol/L (137-145)
[2017-12-05] MEDS ORDERED: DAPTOmycin 500 MG VIAL IV SCH ×2 (09:00→21:00)
[2017-12-05] MEDS ORDERED: KETAMINE 10 MG/ML 20 ML VIAL ONE (09:41)
[2017-12-05] MEDS ORDERED: MIDAZOLAM 2 MG/2 ML VIAL ONE (09:41)
[2017-12-05] MEDS ORDERED: IV FLUID CONTINUATION 1,000 ML IV ONE (09:41)
[2017-12-05] MEDS ORDERED: LIDOCAINE 1% INJ 10MG/ML (20 ML MDV) ONE (09:41)
[2017-12-05] MEDS ORDERED: ETOMIDATE 2 MG/ML 10 ML VIAL ONE (09:41)
--- NOTE | 2017-12-05 10:40 | P.PCN ---
Date of Procedure: 12/05/17 Procedure(s) Performed: Procedure: 1. Esophagogastroduodenoscopy. 2. Total colonoscopy. Preoperative diagnosis: Anemia and Hemoccult-positive stools. Postoperative diagnosis: 1. Hiatal hernia and short Diaz's esophagus but no obvious esophagitis. 2. Mild gastritis with no ulcers or active bleeding. 3. Colon and distal ileum within normal limits without any pathology or bleeding. Preparation GoLYTELY prep. Sedation: Was provided by anesthesia. Brief clinical history: The patient is a 41-year-old male with an extensive cardiac history including multiple heart catheterizations for multivessel CAD maintained on aspirin Plavix, angioplasties with recent stenting over the last few weeks at [facility], cardiomyopathy EF between 40-45%, hypertension , GERD, suicide attempts, and SHELIA, was admitted with chest pain discomfort. Was seen for new onset of anemia. Admission hemoglobin 8. MCV 79. Platelet 287. He received 1 unit of blood bringing hemoglobin is 9.2. Previous hemoglobin on the last 2-4 months between 11-13. He reports some lower abdominal discomfort with intermittent loose stools over the last month. No history of anemia. No history of bowel surgeries. Denies overt bleeding such as hematemesis, hematochezia or melena. Had stool occult blood was positive. He 's had multiple EGDs in the past last one was in June 2017 with findings of LA grade D reflux esophagitis with distal linear erosions. No history of colonoscopy. Patient states he was placed on Plavix about 30 days ago but was also taking aspirin and Effient. Presently only on ASA and plavix which was not held for this procedure. The details are summarized in the history and physical and dictated consultations progress Notes. This evaluation is to assess for a source of bleeding and anemia. Procedure: With the patient on his left lateral decubitus position and after informed consent and adequate sedation, I passed the Olympus-GIF 160 video upper endoscope through the cricopharyngeus down the esophagus. GE junction was irregular and started around 39 cm from the incisors and the tubular esophagus continued for another 2 cm defining a segment of short Diaz's. There was also a 1-2 cm sliding hiatal hernia. The endoscope was then passed into the stomach which was insufflated with air and inspected in detail including the retroflex view in the cardia. There was some mottling and erythema in the antrum and less obvious changes in other areas of the stomach but there was no erosions, ulcers or bleeding. Pyloric channel, duodenal bulb, post bulbar area and descending duodenum were normal. All secretions on this exam were noted to be clear or yellow in color. No active bleeding. The endoscope was withdrawn and I then proceeded with the colonoscopy. Perianal area did not show any fissures or fistulas. There were no masses felt on digital rectal examination. The Olympus CFQ 160L video colonoscope was then inserted in the rectum and the usual fashion and advanced to the cecum. I intubated the ileocecal valve and examined the terminal ileum and the distal ileum for almost 30-40 cm. The colon and the examined portions of the ileum appeared healthy with no edema, erythema, friability, ulceration, exudation or spontaneous bleeding. No polyps or tumors were seen or any obvious diverticular disease or other pathology. I retroflexed the endoscope in the rectum and the usual fashion and then the endoscope was withdrawn. There was no evidence of bleeding noted on this exam. The patient tolerated the procedure well. Plan: I summarized the findings to the patient and his . Will allow regular diet. Continue treatment for reflux disease and gastritis. Further plans based on his course. Consideration can be made for a capsule endoscopy as outpatient depending on his course.
[2017-12-05] MEDS: GABAPENTIN 400 MG CAP PO SCH ×3 (11:48→21:20)
[2017-12-05] MEDS: ASPIRIN 325 MG TAB PO SCH (11:48)
[2017-12-05] MEDS: CLOPIDOGREL 75 MG TAB PO SCH (11:48)
[2017-12-05] MEDS: FUROSEMIDE 40 MG TAB PO SCH (11:48)
[2017-12-05] MEDS: METOPROLOL SUCCINATE (ER) 25 MG TAB.ER.24H PO SCH (11:48)
[2017-12-05] MEDS: PRIMIDONE 250 MG TAB PO SCH ×2 (11:48→21:20)
[2017-12-05] MEDS: FERROUS SULFATE 325 MG TAB PO SCH ×2 (11:48→21:19)
[2017-12-05] MEDS: PANTOPRAZOLE 40 MG/10 ML VIAL IVP SCH (11:49)
[2017-12-05 12:08] LABS: Glucose,Whole Blood 124 mg/dL (75-99)
--- NOTE | 2017-12-05 12:32 | P.PN ---
Subjective Progress Note Date: 12/05/17 Principal diagnosis: CAD This is a pleasant 41-year-old gentleman who is known to or service from before with an extensive cardiac history and known coronary artery disease and multiple coronary artery angioplasty and stenting in the past, currently the patient follows with a morgue technician at [facility], he just underwent stenting with unknown details about 2 weeks ago, mild cardiomyopathy with an EF between 40-45% based on echocardiogram was performed in 2017, hypertension, dyslipidemia, and history of noncompliance, presented to the hospital not feeling well. The patient described symptoms of feeling overall weak, dizzy and lightheaded once he stands up, without any loss of consciousness. He describes heaviness all over the body. No chest pain or chest discomfort. He states also that he has been feeling short of breath with exertion. The EKG showed sinus rhythm with low-voltage QRS. The cardiac enzymes were checked and came in to be slightly abnormal which is likely related to his recent angioplasty and stenting which was performed 2 weeks ago. The blood pressure has been marginally low and his systolic pressure has been between 90-100 mmHg. On follow-up with the patient today, he denies having any chest pain or chest discomfort. Overall he is feeling better. He underwent an upper endoscopy and lower endoscopy and that revealed only gastritis with her esophagus. Yesterday I did hold the lisinopril because her pressure was marginally normal and the pressure today seems to be better. Objective - Vital Signs Vital signs: Vital Signs Temp 97.6 F 12/05/17 12:00 Pulse 95 12/05/17 12:00 Resp 18 12/05/17 12:00 BP 108/70 12/05/17 12:00 Pulse Ox 96 12/05/17 12:00 Intake & Output 12/04/17 12/05/17 12/05/17 18:59 06:59 18:59 Intake Total 480 550 150 Output Total 100 Balance 480 450 150 Weight 107 kg 106 kg Intake: IV 150 Intake, IV Titration 150 Amount Levofloxacin 750Mg-D5w 150 Pmx 750 mg In Dextrose/ Water 1 150ml.bag @ 100 mls/hr IVPB Q24H JAKE Rx#: [id number] Oral 480 400 Output: Urine 100 Other: Voiding Method Toilet # Voids 1 2 # Bowel Movements 2 - Constitutional General appearance: Present: no acute distress - Respiratory Respiratory: bilateral: CTA - Cardiovascular Rhythm: regular Heart sounds: normal: S1, S2 - Labs CBC & Chem 7: 12/05/17 06:39 12/05/17 06:39 Labs: Abnormal Lab Results - Last 24 Hours (Table) 12/04/17 12/04/17 12/04/17 Range/Units 06:03 16:57 20:53 RBC (4.30-5.90) m/uL Hgb (13.0-17.5) gm/dL Hct (39.0-53.0) % RDW (11.5-15.5) % Sodium (137-145) mmol/L Glucose (74-99) mg/dL POC Glucose (mg/dL) 179 H 124 H (75-99) mg/dL Hemoglobin A1c 9.5 H (4.0-6.0) % Calcium (8.4-10.2) mg/dL 12/05/17 12/05/17 12/05/17 Range/Units 05:57 06:39 06:39 RBC 3.45 L (4.30-5.90) m/uL Hgb 9.0 L (13.0-17.5) gm/dL Hct 28.2 L (39.0-53.0) % RDW 18.6 H (11.5-15.5) % Sodium 135 L (137-145) mmol/L Glucose 110 H (74-99) mg/dL POC Glucose (mg/dL) 117 H (75-99) mg/dL Hemoglobin A1c (4.0-6.0) % Calcium 8.3 L (8.4-10.2) mg/dL 12/05/17 Range/Units 11:57 RBC (4.30-5.90) m/uL Hgb (13.0-17.5) gm/dL Hct (39.0-53.0) % RDW (11.5-15.5) % Sodium (137-145) mmol/L Glucose (74-99) mg/dL POC Glucose (mg/dL) 124 H (75-99) mg/dL Hemoglobin A1c (4.0-6.0) % Calcium (8.4-10.2) mg/dL Microbiology - Last 24 Hours (Table) 12/03/17 22:50 Blood Culture - Preliminary Blood No Growth after 24 hours Assessment and Plan Assessment: Assessment #1 coronary artery disease and status post PCI recently with unknown details. The PCI was performed out of the town #2 mild ischemic cardiomyopathy with EF between 40-45% #3 marginal he low blood pressure #4 dizziness and lightheadedness with standing #5 multiple comorbid conditions Plan #1 continue holding the lisinopril in view of the margin the low blood pressure. #2 the abormal troponin is related to the last angioplasty and stenting which was performed 2 weeks ago. In the absence of any chest pain or chest discomfort I would treat him medically and he is currently on dual antiplatelet therapy along with a statin.
[2017-12-05 17:25] LABS: Glucose,Whole Blood 205 mg/dL (75-99)
[2017-12-05] MEDS ORDERED: INSULIN DETEMIR 100 UNIT/ML 10 ML VIAL SQ SCH (21:00)
[2017-12-05] MEDS: ARIPiprazole 15 MG TAB PO SCH (21:19)
[2017-12-05 21:21] LABS: Glucose,Whole Blood 154 mg/dL (75-99)
[2017-12-05] MEDS: LEVOFLOXACIN 750MG-D5W PMX 750 MG in DEXTROSE/WATER 1 150ML.BAG IVPB SCH (22:37)
--- NOTE | 2017-12-06 00:48 | P.PN ---
Subjective Progress Note Date: 12/05/17 Principal diagnosis: Acute blood loss anemia Patient is a 41-year-old male with a known history of hypertension, diabetes type 2 insulin-dependent, morbid obesity, multivessel coronary artery disease and recent stent placement 2 at [facility] about few weeks ago, cardiomyopathy ejection fraction 40-45% and depression with history of suicide attempts in the past came to ER with complaints of chest discomfort and not feeling well. Patient was found to have hemoglobin of 8.0 on admission and patient underwent 1 unit PRBC transfusion with hemoglobin and up to 9.2 now. Hemoglobin was 11 about 2 months ago. Patient denied any nausea or vomiting. Patient does not have any dark-colored stools or hematemesis or bright blood with stool. FOBT positive otherwise. Patient did have previous EGD in June 2017 showed reflux esophagitis with distal linear erosions. EKG showed sinus rhythm with low voltage QRS Troponin 0.83 and 0.517 Patient currently has been taking aspirin Lasix and Effient at home. Chest x-ray showed left lower lobe band of added opacity. New From previous study BNP 9520 12/05/2017 Patient denied any complaints of chest pain or worsening shortness of breath. Patient mentation is at baseline. EGD and colonoscopy was done today. Postoperative diagnosis: 1. Hiatal hernia and short Diaz's esophagus but no obvious esophagitis. 2. Mild gastritis with no ulcers or active bleeding. 3. Colon and distal ileum within normal limits without any pathology or bleeding. Hemoglobin is 9.0 today. Fairly stable. otherwise anticipate discharge in next 24 hours. No fever no chills. No chest pain. All other review of systems negative except the above Current medications reviewed Objective - Vital Signs Vital signs: Vital Signs Temp 97.7 F 12/05/17 23:51 Pulse 86 12/05/17 23:54 Resp 17 12/05/17 23:54 BP 120/74 12/05/17 23:51 Pulse Ox 94 L 12/05/17 23:51 Intake & Output 12/05/17 12/05/17 12/06/17 06:59 18:59 06:59 Intake Total 550 150 300 Output Total 100 Balance 450 150 300 Weight 106 kg Intake: IV 150 Intake, IV Titration 150 50 Amount DAPTOmycin 850 mg In 50 Sodium Chloride 0.9% 50 ml @ 100 mls/hr IVPB [facility] Rx#:[id number] Levofloxacin 750Mg-D5w 150 Pmx 750 mg In Dextrose/ Water 1 150ml.bag @ 100 mls/hr IVPB Q24H [facility] Rx#: [id number] Oral 400 250 Output: Urine 100 Other: Voiding Method Toilet Toilet # Voids 2 1 # Bowel Movements 2 - Exam PHYSICAL EXAMINATION: Patient is lying in the bed comfortably, no acute distress, awake alert and oriented.. HEENT: Normocephalic. Neck is supple. Pupils reactive. Nostrils clear. Oral cavity is moist. Ears reveal no drainage. Neck reveals no JVD, carotid bruits, or thyromegaly. CHEST EXAMINATION: Trachea is central. Symmetrical expansion. Bibasilar diminished air entry Lung hendrix clear to auscultation and percussion. CARDIAC: Normal S1, S2 with no gallops. No murmurs ABDOMEN: Soft. Bowel sounds normal. No organomegaly. No abdominal bruits. Extremities: 2+ edema. No clubbing or cyanosis Neurologically awake, alert, oriented x3 with well-coordinated movements. No focal deficits noted Skin: No rash or skin lesions. Psychiatric: Coperative. Seems depressed could not be assessed completely. Musculoskeletal: No joint swelling or deformity. Normal range of motion. - Labs CBC & Chem 7: 12/05/17 06:39 12/05/17 06:39 Labs: Abnormal Lab Results - Last 24 Hours (Table) 12/04/17 12/05/17 12/05/17 Range/Units 06:03 05:57 06:39 RBC 3.45 L (4.30-5.90) m/uL Hgb 9.0 L (13.0-17.5) gm/dL Hct 28.2 L (39.0-53.0) % RDW 18.6 H (11.5-15.5) % Sodium (137-145) mmol/L Glucose (74-99) mg/dL POC Glucose (mg/dL) 117 H (75-99) mg/dL Hemoglobin A1c 9.5 H (4.0-6.0) % Calcium (8.4-10.2) mg/dL 12/05/17 12/05/17 12/05/17 Range/Units 06:39 11:57 17:13 RBC (4.30-5.90) m/uL Hgb (13.0-17.5) gm/dL Hct (39.0-53.0) % RDW (11.5-15.5) % Sodium 135 L (137-145) mmol/L Glucose 110 H (74-99) mg/dL POC Glucose (mg/dL) 124 H 205 H (75-99) mg/dL Hemoglobin A1c (4.0-6.0) % Calcium 8.3 L (8.4-10.2) mg/dL 12/05/17 Range/Units 21:04 RBC (4.30-5.90) m/uL Hgb (13.0-17.5) gm/dL Hct (39.0-53.0) % RDW (11.5-15.5) % Sodium (137-145) mmol/L Glucose (74-99) mg/dL POC Glucose (mg/dL) 154 H (75-99) mg/dL Hemoglobin A1c (4.0-6.0) % Calcium (8.4-10.2) mg/dL Microbiology - Last 24 Hours (Table) 12/03/17 22:50 Blood Culture - Preliminary Blood No Growth after 24 hours Assessment and Plan Assessment: Acute blood Loss anemia possible GI bleed. Hemoglobin previously around 11--->8 --9.0 on admission. Status post 1 unit PRBC transfusion. 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 Currently hypotensive Diabetes type 2 insulin-dependent Coronary artery disease multivessel. morbid obesity with BMI 38.1 Hypoalbuminemia with mild protein calorie malnutrition. Albumin 2.5 History of CVA/TIA GERD Hyperlipidemia Obstructive sleep apnea on CPAP at home Diabetic peripheral neuropathy of bilateral hands and feet Degenerative disc disease and chronic back pain Depression with history of suicide attempts Gastroparesis Sodium is History of migraine headaches Anxiety depression and PTSD Morbid obesity BMI 38.1 DVT prophylaxis with SCDs Plan: Patient will be continued on aspirin Plavix and metoprolol. Lisinopril held due to hypotension. Monitor H&H. Patient is status post 1 unit PRBC. Patient is status post EGD and colonoscopy. Showed gastritis.. Continue PPI IV daily Continue the insulin sliding scale for now. Patient is on Lantus 27 units along with 8 units of NovoLog 3 times a day before meals.. Monitor CBC and follow up closely. Further recommendations based on the clinical course. Prognosis is guarded with multiple medical problems and comorbid conditions Time with Patient: Greater than 30
[2017-12-06 06:08] LABS: Glucose,Whole Blood 193 mg/dL (75-99)
[2017-12-06] MEDS: NITROGLYCERIN OINT 1 INCH/GM PACKET TOPICAL SCH ×2 (06:48→12:37)
[2017-12-06] MEDS: INSULIN ASPART 100 UNIT/ML 1 ML 10 ML VIAL SQ SCH ×4 (07:07→13:08)
[2017-12-06] MEDS: FUROSEMIDE 40 MG TAB PO SCH (08:35)
[2017-12-06] MEDS: FERROUS SULFATE 325 MG TAB PO SCH (08:35)
[2017-12-06] MEDS: ASPIRIN 325 MG TAB PO SCH (08:35)
[2017-12-06] MEDS: GABAPENTIN 400 MG CAP PO SCH (08:35)
[2017-12-06] MEDS: CLOPIDOGREL 75 MG TAB PO SCH (08:35)
[2017-12-06] MEDS: METOPROLOL SUCCINATE (ER) 25 MG TAB.ER.24H PO SCH (08:35)
[2017-12-06] MEDS: PRIMIDONE 250 MG TAB PO SCH (08:35)
[2017-12-06] MEDS: PANTOPRAZOLE 40 MG/10 ML VIAL IVP SCH (08:36)
[2017-12-06 08:50] VITALS: RESP 18
[2017-12-06] MEDS ORDERED: SERTRALINE 100 MG TAB PO SCH (09:00)
[2017-12-06 09:10] LABS: Anisocytosis Slight; Basophils % (A) 1 %; Eosinophils # (A) 0.1 k/uL (0-0.7); Eosinophils % (A) 3 %; HCT 28.7 % (39.0-53.0); HGB 9.1 gm/dL (13.0-17.5); Hypochromasia Moderate; Lymphocytes # (A) 1.3 k/uL (1.0-4.8); Lymphocytes % (A) 25 %; MCHC 31.7 g/dL (31.0-37.0); Mean Platelet Volume 7.3; Microcytosis Slight; Monocytes # (A) 0.2 k/uL (0-1.0); Monocytes % (A) 4 %; Neutrophils # (A) 3.3 k/uL (1.3-7.7); Neutrophils % (A) 66 %; Platelet Count 298 k/uL (150-450); Poikilocytosis Slight; RDW 18.9 % (11.5-15.5)
[2017-12-06 09:21] LABS: Anion Gap 8 mmol/L; Blood Urea Nitrogen 22 mg/dL (9-20); Calcium 8.8 mg/dL (8.4-10.2); Carbon Dioxide 21 mmol/L (22-30); Chloride 105 mmol/L (98-107); Glucose 130 mg/dL (74-99); Potassium 5.1 mmol/L (3.5-5.1); Sodium 134 mmol/L (137-145)
[2017-12-06 12:09] LABS: Glucose,Whole Blood 88 mg/dL (75-99)
[2017-12-06 13:09] VITALS: BP 116/76; PULSE 91; TEMP 97
--- NOTE | 2017-12-06 13:15 | P.PN ---
Subjective Progress Note Date: 12/06/17 Principal diagnosis: CAD This is a pleasant 41-year-old gentleman who is known to or service from before with an extensive cardiac history and known coronary artery disease and multiple coronary artery angioplasty and stenting in the past, currently the patient follows with a java developer at [facility], he just underwent stenting with unknown details about 2 weeks ago, mild cardiomyopathy with an EF between 40-45% based on echocardiogram was performed in 2017, hypertension, dyslipidemia, and history of noncompliance, presented to the hospital not feeling well. The patient described symptoms of feeling overall weak, dizzy and lightheaded once he stands up, without any loss of consciousness. He describes heaviness all over the body. No chest pain or chest discomfort. He states also that he has been feeling short of breath with exertion. The EKG showed sinus rhythm with low-voltage QRS. The cardiac enzymes were checked and came in to be slightly abnormal which is likely related to his recent angioplasty and stenting which was performed 2 weeks ago. The blood pressure has been marginally low and his systolic pressure has been between 90-100 mmHg. On follow-up with the patient today, he denies having any chest pain or chest discomfort. Overall he is feeling better. He underwent an upper endoscopy and lower endoscopy and that revealed only gastritis with her esophagus. Yesterday I did hold the lisinopril because her pressure was marginally normal and the pressure today seems to be better. The echocardiogram showed severe cardiomyopathy but the patient does have ICD. Objective - Vital Signs Vital signs: Vital Signs Temp 97 F L 12/06/17 12:00 Pulse 91 12/06/17 12:00 Resp 18 12/06/17 12:00 BP 116/76 12/06/17 12:00 Pulse Ox 96 12/06/17 12:00 Intake & Output 12/05/17 12/06/17 12/06/17 18:59 06:59 18:59 Intake Total 150 700 240 Balance 150 700 240 Weight 108.5 kg Intake: IV 150 Intake, IV Titration 200 Amount DAPTOmycin 850 mg In 50 Sodium Chloride 0.9% 50 ml @ 100 mls/hr IVPB [facility] Rx#:[id number] Levofloxacin 750Mg-D5w 150 Pmx 750 mg In Dextrose/ Water 1 150ml.bag @ 100 mls/hr IVPB Q24H [facility] Rx#: [id number] Oral 500 240 Other: Voiding Method Toilet # Voids 2 - Constitutional General appearance: Present: no acute distress - Respiratory Respiratory: bilateral: CTA - Cardiovascular Rhythm: regular Heart sounds: normal: S1, S2 - Labs CBC & Chem 7: 12/06/17 08:35 12/06/17 08:35 Labs: Abnormal Lab Results - Last 24 Hours (Table) 12/05/17 12/05/17 12/06/17 Range/Units 17:13 21:04 06:03 RBC (4.30-5.90) m/uL Hgb (13.0-17.5) gm/dL Hct (39.0-53.0) % RDW (11.5-15.5) % Sodium (137-145) mmol/L Carbon Dioxide (22-30) mmol/L BUN (9-20) mg/dL Glucose (74-99) mg/dL POC Glucose (mg/dL) 205 H 154 H 193 H (75-99) mg/dL 12/06/17 12/06/17 Range/Units 08:35 08:35 RBC 3.50 L (4.30-5.90) m/uL Hgb 9.1 L (13.0-17.5) gm/dL Hct 28.7 L (39.0-53.0) % RDW 18.9 H (11.5-15.5) % Sodium 134 L (137-145) mmol/L Carbon Dioxide 21 L (22-30) mmol/L BUN 22 H (9-20) mg/dL Glucose 130 H (74-99) mg/dL POC Glucose (mg/dL) (75-99) mg/dL Microbiology - Last 24 Hours (Table) 12/03/17 22:50 Blood Culture - Preliminary Blood No Growth after 48 hours Assessment and Plan Assessment: Assessment #1 coronary artery disease and status post PCI recently with unknown details. The PCI was performed out of the town #2 mild ischemic cardiomyopathy with EF between 40-45% #3 marginal he low blood pressure #4 dizziness and lightheadedness with standing #5 multiple comorbid conditions Plan #1 continue the current medical regimen #2 the patient can be discharged home.
== END 2017-12-06 14:12 | disposition home health service (06) | DRG 812 ==
LOC: EC 20:20 → 6SEL 22:48
PROVIDERS: ADMIT Hospitalist; ATTEND Hospitalist
PROC: 30233N1 Transfusion of Nonautologous Red Blood Cells into Peripheral Vein, Percutaneous Approach (ICD-10-PCS; 2017-12-03)
PROC: 0DJ08ZZ Inspection of Upper Intestinal Tract, Via Natural or Artificial Opening Endoscopic (ICD-10-PCS; principal; 2017-12-05 09:45)
PROC: 0DJD8ZZ Inspection of Lower Intestinal Tract, Via Natural or Artificial Opening Endoscopic (ICD-10-PCS; 2017-12-05 09:45)
DX: D62 Acute posthemorrhagic anemia (principal); E87.1 Hypo-osmolality and hyponatremia; I50.22 Chronic systolic (congestive) heart failure; E44.1 Mild protein-calorie malnutrition; I95.9 Hypotension, unspecified; I11.0 Hypertensive heart disease with heart failure; E11.42 Type 2 diabetes mellitus with diabetic polyneuropathy; E11.43 Type 2 diabetes mellitus with diabetic autonomic (poly)neuropathy; E66.01 Morbid (severe) obesity due to excess calories; K31.84 Gastroparesis; E87.5 Hyperkalemia; D50.0 Iron deficiency anemia secondary to blood loss (chronic); K29.70 Gastritis, unspecified, without bleeding; K22.70 Barrett's esophagus without dysplasia; R19.5 Other fecal abnormalities; I25.10 Atherosclerotic heart disease of native coronary artery without angina pectoris; I25.5 Ischemic cardiomyopathy; G47.33 Obstructive sleep apnea (adult) (pediatric); E78.5 Hyperlipidemia, unspecified; G89.29 Other chronic pain; M54.9 Dorsalgia, unspecified; F41.8 Other specified anxiety disorders; F43.10 Post-traumatic stress disorder, unspecified; G43.909 Migraine, unspecified, not intractable, without status migrainosus; F10.11 Alcohol abuse, in remission; K44.9 Diaphragmatic hernia without obstruction or gangrene; K21.9 Gastro-esophageal reflux disease without esophagitis; M19.91 Primary osteoarthritis, unspecified site; J45.909 Unspecified asthma, uncomplicated; I25.2 Old myocardial infarction; L40.9 Psoriasis, unspecified; Z68.38 Body mass index [BMI] 38.0-38.9, adult; Z79.82 Long term (current) use of aspirin; Z79.02 Long term (current) use of antithrombotics/antiplatelets; Z79.4 Long term (current) use of insulin; Z79.01 Long term (current) use of anticoagulants; Z79.899 Other long term (current) drug therapy; Z95.810 Presence of automatic (implantable) cardiac defibrillator; Z95.5 Presence of coronary angioplasty implant and graft; Z91.5 Personal history of self-harm; Z90.49 Acquired absence of other specified parts of digestive tract; Z86.14 Personal history of Methicillin resistant Staphylococcus aureus infection; Z87.01 Personal history of pneumonia (recurrent); Z86.73 Personal history of transient ischemic attack (TIA), and cerebral infarction without residual deficits; Z90.79 Acquired absence of other genital organ(s); Z88.1 Allergy status to other antibiotic agents; Z91.041 Radiographic dye allergy status; Z88.5 Allergy status to narcotic agent; Z88.0 Allergy status to penicillin; Z91.013 Allergy to seafood; Z82.49 Family history of ischemic heart disease and other diseases of the circulatory system; Z83.3 Family history of diabetes mellitus; Z80.1 Family history of malignant neoplasm of trachea, bronchus and lung; Z82.0 Family history of epilepsy and other diseases of the nervous system
CPT/HCPCS: 36415; 43235; 45378; 71046; 80048; 80053; 80061; 82272; 82550; 82553; 83036; 83735; 83880; 84484; 85025; 85610; 85730; 86850; 86900; 86901; 86920; 87040; 93005; 93306; 96365; 96375; 99285

== ENCOUNTER 2017-12-09 20:05 | Inpatient (IN) | payer MEDICARE, OTHER ==
--- NOTE | 2017-12-09 21:04 | ED ---
General Adult HPI - General Chief complaint: Shortness of Breath Stated complaint: SOB Source: patient Mode of arrival: wheelchair Limitations: no limitations - History of Present Illness Initial comments: Dictation was produced using [employer] dictation software. please excuse any grammatical, word or spelling errors. Chief Complaint: 41-year-old male with multiple comorbidities including hypertension, diabetes, obesity, coronary artery disease, cardiomyopathy presents with shortness of breath 2 days with chest pain. History of Present Illness: Patient is a 41-year-old male multiple comorbidities presents with 2 days of shortness of breath and chest pain. Patient is only 41 and has extensive cardiac history. Patient has history of multivessel coronary artery disease. He is status post multiple stents. He does have AICD for cardiomyopathy. He reports having had intermittent chest pain. Patient states he was just discharged from this hospital 2 days ago. Since being discharged he continued to have symptoms. Patient has history of asthma, and CHF. Patient reports been compliant with his medication. Denies any constitutional symptoms. The ROS documented in this emergency department record has been reviewed and confirmed by me. Those systems with pertinent positive or negative responses have been documented in the HPI. All other systems are other negative and/or noncontributory. - Related Data Home Medications Medication Instructions Recorded Confirmed ARIPiprazole [ARIPiprazole Odt] 15 mg PO HS 10/27/17 12/09/17 Ranitidine HCl 300 mg PO DAILY 10/27/17 12/09/17 Rosuvastatin Calcium [Crestor] 40 mg PO HS 10/27/17 12/09/17 Clopidogrel [Plavix] 75 mg PO HS 12/03/17 12/09/17 DAPTOmycin [Cubicin] 850 mg IV DAILY 12/03/17 12/09/17 Ferrous Sulfate [Iron (65 MG 325 mg PO BID 12/03/17 12/09/17 Elemental)] Furosemide [Lasix] 40 mg PO DAILY 12/03/17 12/09/17 Insulin Aspart [NovoLOG 9 unit SQ TID 12/03/17 12/09/17 (formulary)] Insulin Glargine [Lantus] 27 unit SQ HS 12/03/17 12/09/17 Lisinopril [Zestril] 5 mg PO DAILY 12/03/17 12/09/17 Metoprolol Succinate [Toprol XL] 25 mg PO DAILY 12/03/17 12/09/17 Primidone [Mysoline] 500 mg PO BID 12/03/17 12/09/17 Sertraline [Zoloft] 200 mg PO DAILY 12/05/17 12/09/17 Previous Rx's Medication Instructions Recorded Aspirin 81 mg PO DAILY chew 07/27/17 Gabapentin [Neurontin] 400 mg PO TID cap 07/27/17 Nitroglycerin Sl Tabs [Nitrostat] 0.4 mg SUBLINGUAL Q5M PRN tab 07/27/17 Allergies Allergy/AdvReac Type Severity Reaction Status Date / Time erythromycin base Allergy Severe Rash/Hives Verified 12/09/17 21:16 [Erythromycin Base] cephalexin monohydrate Allergy Unknown Rash/Hives Verified 12/09/17 21:16 [From Keflex] codeine Allergy Unknown Unknown Verified 12/09/17 21:16 meclizine Allergy Unknown Unknown Verified 12/09/17 21:16 Penicillins Allergy Unknown Rash/Hives Verified 12/09/17 21:16 shellfish derived Allergy Unknown Anaphylaxis Verified 12/09/17 21:16 Fish Containing Products Allergy Anaphylaxis Verified 12/09/17 21:16 [Fish] Iodinated Contrast- Oral and Allergy Anaphylaxis Verified 12/09/17 21:16 IV Dye naproxen AdvReac Unknown Compromises Verified 12/09/17 21:16 Kidney Function atorvastatin calcium AdvReac Myalgia Verified 12/09/17 21:16 [From Lipitor] hydrocodone [From [place]] AdvReac Rapid Verified 12/09/17 21:16 Heart Rate Review of Systems ROS Statement: Those systems with pertinent positive or pertinent negative responses have been documented in the HPI. ROS Other: All systems not noted in ROS Statement are negative. Past Medical History Past Medical History: Asthma, Coronary Artery Disease (CAD), Chest Pain / Angina , Heart Failure, CVA/TIA, Diabetes Mellitus, GERD/Reflux, Hyperlipidemia, Hypertension, Myocardial Infarction (MN), Osteoarthritis (OA), Pneumonia, Skin Disorder, Sleep Apnea/CPAP/BIPAP Additional Past Medical History / Comment(s): multiple vessel CAD, ischemic cardiomyopathy, diabetic neuropathy bilateral hands and feet, hypertensive cardiovascular disease, SHELIA with no device, chronic gastritis, degenerative disc disease, chronic back pain, depression with hx of suicide attempts, gastroparesis, psoriasis, UTI, migraines, TIA, PUD, hiatal hernia, L rotator cuff tear, bronchitis, pseudoaneurysm L groin post procedure. Last Myocardial Infarction Date:: May 2017 History of Any Multi-Drug Resistant Organisms: MRSA Date of last positivie culture/infection: 11/05/2017 (Culture done at [facility]) MDRO Source:: legs Past Surgical History: AICD, Appendectomy, Cholecystectomy, Heart Catheterization With Stent, Hernia Repair Additional Past Surgical History / Comment(s): Pt has had multiple cardiac procedures- caths/stents/PTCA, last stent placed at [facility] - May 2017, SAVANNAH, R inguinal hernia repair, umbilical hernia repair, right orchiectomy due to necrosis, right hand surgery r/t injury, colonoscopy, cystoscopy ( scraped bladder parrish) Past Anesthesia/Blood Transfusion Reactions: No Reported Reaction Additional Past Anesthesia/Blood Transfusion Reaction / Comment(s): . Date of Last Stent Placement:: 05/25/2017 Type of Cardiac Device: Biventricular Pacemaker, AICD Device Placement Date:: 09/19/15 Past Psychological History: Anxiety, Depression, PTSD Smoking Status: Never smoker Past Alcohol Use History: None Reported Past Drug Use History: None Reported - Past Family History Mother Family Medical History: Coronary Artery Disease (CAD), Myocardial Infarction (MN ) Additional Family Medical History / Comment(s): 7 MN and faulty heart valve. Pt does not know the age when mother had her MN's. Father History Unknown: Yes Additional Family Medical History / Comment(s): Does not know who father is. Brother(s) Family Medical History: Cancer, Congestive Heart Failure (CHF), Myocardial Infarction (MN) Additional Family Medical History / Comment(s): Parkinsons. Pt does not know at what age his brother had an MN. Patient's other brother has lung CA Patient has Family Medical History: No Reported History Additional Family Medical History / Comment(s): There is a strong family history for heart disease, hypertension, and diabetes. General Exam - General Exam Comments Initial Comments: PHYSICAL EXAM: General Impression: Alert and oriented x3, not in acute distress, jaundiced HEENT: Normocephalic atraumatic, extra-ocular movements intact, pupils equal and reactive to light bilaterally, mucous membranes moist. Cardiovascular: Heart regular rate and rhythm, S1&S2 audible, no murmurs, rubs or gallops, pacemaker in place Chest: Lungs clear to auscultation bilaterally, no rhonchi, no wheeze, no rales Abdomen: Bowel sounds present, abdomen soft, non-tender, non-distended, no organomegaly Musculoskeletal: Pulses present and equal in all extremities, no peripheral edema Motor: Power 5/5 bilaterally, no focal deficits noted Neurological: CN II-XII grossly intact, no focal motor or sensory deficits noted Skin: Anterior tibial lesion with bandage over it Psych: Normal affect and mood Limitations: no limitations Course Vital Signs 12/09/17 12/09/17 12/09/17 20:14 21:27 22:02 Temperature 99.0 F Pulse Rate 103 H 107 H Respiratory 18 20 18 Rate Blood Pressure 99/72 124/68 O2 Sat by Pulse 99 98 Oximetry 12/09/17 12/09/17 22:34 23:32 Temperature 98.0 F Pulse Rate 107 H 81 Respiratory 18 18 Rate Blood Pressure 122/67 123/81 O2 Sat by Pulse 96 96 Oximetry Medical Decision Making - Medical Decision Making ED course: 41-year-old male with extensive cardiac history and multiple comorbidities presents with chest pain and shortness of breath. Patient is a heart rate of 13 on arrival. Blood pressure is 99/72. Patient not showing any signs of labored breathing at this time. Patient appears mildly uncomfortable. Vital signs upon arrival shows tachycardia 13, blood pressure 99/72. Patient not to get neck and normal oxygen on room air. Patient's persistently tachycardic. Repeat blood pressures are improved. Laboratory evaluation obtained. CBC is stable for patient. INR is 1.4. The gases are within acceptable limits. Sodium 132. Non-gap acidosis. Glucose is 167. Troponin 0.234 which is lower than patient's baseline. Prematurity peptide is 11,000. X -ray was obtained showing pulmonary infiltrates suggesting congestive heart failure. Patient had very unclear abdominal symptoms. Computed tomography scan of the abdomen and pelvis was obtained showing phthisis suggested cystitis. Patient symptoms secondary to CHF exacerbation. Patient to be admitted for gentle diuresis. Troponin to be trended. On this point no concern for an STEMI at this time. EKG Interpretation: A 12 lead EKG was obtained. It was interpreted by myself and attending physician. There is a P wave before every QRS complex. Rate is 105. Rhythm is ventricular paced rhythm,. Interval 160, QS 84, QTC 433. QT is not prolonged. No ST segment depression or elevation. This EKG was compared to a previous EKG that was obtained on 12/03/2017 and showed no significant change. Overall, this EKG is unremarkable - Lab Data Result diagrams: 12/12/17 05:30 12/12/17 05:30 Lab Results 12/09/17 12/09/17 12/09/17 Range/Units 21:16 21:16 21:16 WBC 5.9 (3.8-10.6) k/uL RBC 3.61 L (4.30-5.90) m/uL Hgb 9.5 L (13.0-17.5) gm/dL Hct 29.9 L (39.0-53.0) % MCV 82.8 (80.0-100.0) fL MCH 26.2 (25.0-35.0) pg MCHC 31.7 (31.0-37.0) g/dL RDW 19.8 H (11.5-15.5) % Plt Count 263 (150-450) k/uL Neutrophils % 80 % Lymphocytes % 10 % Monocytes % 5 % Eosinophils % 3 % Basophils % 0 % Neutrophils # 4.7 (1.3-7.7) k/uL Lymphocytes # 0.6 L (1.0-4.8) k/uL Monocytes # 0.3 (0-1.0) k/uL Eosinophils # 0.2 (0-0.7) k/uL Basophils # 0.0 (0-0.2) k/uL Hypochromasia Moderate Poikilocytosis Slight Anisocytosis Slight Microcytosis Slight PT (9.0-12.0) sec INR (<1.2) VBG pH 7.47 H (7.31-7.41) VBG pCO2 26 L (37-51) mmHg VBG HCO3 19 L (24-28) mmol/L Sodium 132 L (137-145) mmol/L Potassium 4.4 (3.5-5.1) mmol/L Chloride 103 (98-107) mmol/L Carbon Dioxide 20 L (22-30) mmol/L Anion Gap 9 mmol/L BUN 22 H (9-20) mg/dL Creatinine 0.80 (0.66-1.25) mg/dL Est GFR (CKD-EPI)AfAm >90 (>60 ml/min/1.73 sqM) Est GFR (CKD-EPI)NonAf >90 (>60 ml/min/1.73 sqM) Glucose 167 H (74-99) mg/dL Plasma Lactic Acid Timbo (0.7-2.0) mmol/L Calcium 8.4 (8.4-10.2) mg/dL Magnesium 1.9 (1.6-2.3) mg/dL Total Bilirubin 1.0 (0.2-1.3) mg/dL AST 25 (17-59) U/L ALT 45 (21-72) U/L Alkaline Phosphatase 197 H (38-126) U/L Troponin I (0.000-0.034) ng/mL NT-Pro-B Natriuret Pep pg/mL Total Protein 5.2 L (6.3-8.2) g/dL Albumin 2.6 L (3.5-5.0) g/dL Lipase 181 (23-300) U/L Serum Alcohol <10 mg/dL 12/09/17 12/09/17 12/09/17 Range/Units 21:16 21:16 21:16 WBC (3.8-10.6) k/uL RBC (4.30-5.90) m/uL Hgb (13.0-17.5) gm/dL Hct (39.0-53.0) % MCV (80.0-100.0) fL MCH (25.0-35.0) pg MCHC (31.0-37.0) g/dL RDW (11.5-15.5) % Plt Count (150-450) k/uL Neutrophils % % Lymphocytes % % Monocytes % % Eosinophils % % Basophils % % Neutrophils # (1.3-7.7) k/uL Lymphocytes # (1.0-4.8) k/uL Monocytes # (0-1.0) k/uL Eosinophils # (0-0.7) k/uL Basophils # (0-0.2) k/uL Hypochromasia Poikilocytosis Anisocytosis Microcytosis PT 13.2 H (9.0-12.0) sec INR 1.4 H (<1.2) VBG pH (7.31-7.41) VBG pCO2 (37-51) mmHg VBG HCO3 (24-28) mmol/L Sodium (137-145) mmol/L Potassium (3.5-5.1) mmol/L Chloride (98-107) mmol/L Carbon Dioxide (22-30) mmol/L Anion Gap mmol/L BUN (9-20) mg/dL Creatinine (0.66-1.25) mg/dL Est GFR (CKD-EPI)AfAm (>60 ml/min/1.73 sqM) Est GFR (CKD-EPI)NonAf (>60 ml/min/1.73 sqM) Glucose (74-99) mg/dL Plasma Lactic Acid Timbo 1.9 (0.7-2.0) mmol/L Calcium (8.4-10.2) mg/dL Magnesium (1.6-2.3) mg/dL Total Bilirubin (0.2-1.3) mg/dL AST (17-59) U/L ALT (21-72) U/L Alkaline Phosphatase (38-126) U/L Troponin I 0.234 H* (0.000-0.034) ng/mL NT-Pro-B Natriuret Pep pg/mL Total Protein (6.3-8.2) g/dL Albumin (3.5-5.0) g/dL Lipase (23-300) U/L Serum Alcohol mg/dL 12/09/17 Range/Units 21:16 WBC (3.8-10.6) k/uL RBC (4.30-5.90) m/uL Hgb (13.0-17.5) gm/dL Hct (39.0-53.0) % MCV (80.0-100.0) fL MCH (25.0-35.0) pg MCHC (31.0-37.0) g/dL RDW (11.5-15.5) % Plt Count (150-450) k/uL Neutrophils % % Lymphocytes % % Monocytes % % Eosinophils % % Basophils % % Neutrophils # (1.3-7.7) k/uL Lymphocytes # (1.0-4.8) k/uL Monocytes # (0-1.0) k/uL Eosinophils # (0-0.7) k/uL Basophils # (0-0.2) k/uL Hypochromasia Poikilocytosis Anisocytosis Microcytosis PT (9.0-12.0) sec INR (<1.2) VBG pH (7.31-7.41) VBG pCO2 (37-51) mmHg VBG HCO3 (24-28) mmol/L Sodium (137-145) mmol/L Potassium (3.5-5.1) mmol/L Chloride (98-107) mmol/L Carbon Dioxide (22-30) mmol/L Anion Gap mmol/L BUN (9-20) mg/dL Creatinine (0.66-1.25) mg/dL Est GFR (CKD-EPI)AfAm (>60 ml/min/1.73 sqM) Est GFR (CKD-EPI)NonAf (>60 ml/min/1.73 sqM) Glucose (74-99) mg/dL Plasma Lactic Acid Timbo (0.7-2.0) mmol/L Calcium (8.4-10.2) mg/dL Magnesium (1.6-2.3) mg/dL Total Bilirubin (0.2-1.3) mg/dL AST (17-59) U/L ALT (21-72) U/L Alkaline Phosphatase (38-126) U/L Troponin I (0.000-0.034) ng/mL NT-Pro-B Natriuret Pep 47058 pg/mL Total Protein (6.3-8.2) g/dL Albumin (3.5-5.0) g/dL Lipase (23-300) U/L Serum Alcohol mg/dL Disposition Clinical Impression: Cardiomyopathy, Congestive heart failure Disposition: ADMITTED IP TO THIS HOSP Condition: Fair Is patient prescribed a controlled substance at d/c from ED?: No
[2017-12-09 21:29] LABS: VBG PH 7.47 (7.31-7.41)
[2017-12-09 21:33] LABS: INR 1.4 (<1.2); Prothrombin Time 13.2 sec (9.0-12.0)
--- NOTE | 2017-12-09 21:38 | XR ---
EXAMINATION TYPE: XR chest 2V DATE OF EXAM: 12/09/2017 COMPARISON: 12/04/2017 HISTORY: Chest pain TECHNIQUE: Frontal and lateral views of the chest are obtained. FINDINGS: There are bilateral pulmonary interstitial and alveolar infiltrates. Heart is enlarged. Th ere is some coalescent density in the left upper lobe. There is left axillary pacemaker with the lead tips in the right ventricle. There is slight blunting of costophrenic angles. IMPRESSION: Pulmonary new infiltrates could relate to acute pneumonia. Heart is slightly enlarged. C ongestive heart failure is possible.
[2017-12-09 21:43] LABS: ALT 45 U/L (21-72); AST 25 U/L (17-59); Albumin 2.6 g/dL (3.5-5.0); Alcohol <10 mg/dL; Alkaline Phosphatase 197 U/L (38-126); Anion Gap 9 mmol/L; Blood Urea Nitrogen 22 mg/dL (9-20); Calcium 8.4 mg/dL (8.4-10.2); Carbon Dioxide 20 mmol/L (22-30); Chloride 103 mmol/L (98-107); Glucose 167 mg/dL (74-99); Lipase 181 U/L (23-300); Magnesium 1.9 mg/dL (1.6-2.3); Potassium 4.4 mmol/L (3.5-5.1); Sodium 132 mmol/L (137-145); Total Protein 5.2 g/dL (6.3-8.2)
[2017-12-09 21:52] LABS: Anisocytosis Slight; Basophils % (A) 0 %; Eosinophils # (A) 0.2 k/uL (0-0.7); Eosinophils % (A) 3 %; HCT 29.9 % (39.0-53.0); HGB 9.5 gm/dL (13.0-17.5); Hypochromasia Moderate; Lymphocytes # (A) 0.6 k/uL (1.0-4.8); Lymphocytes % (A) 10 %; MCH 26.2 pg (25.0-35.0); MCHC 31.7 g/dL (31.0-37.0); MCV 82.8 fL (80.0-100.0); Mean Platelet Volume 6.7; Microcytosis Slight; Monocytes # (A) 0.3 k/uL (0-1.0); Monocytes % (A) 5 %; Neutrophils # (A) 4.7 k/uL (1.3-7.7); Neutrophils % (A) 80 %; Platelet Count 263 k/uL (150-450); Poikilocytosis Slight; RBC 3.61 m/uL (4.30-5.90); RDW 19.8 % (11.5-15.5); WBC 5.9 k/uL (3.8-10.6)
--- NOTE | 2017-12-09 22:00 | CT ---
EXAMINATION TYPE: CT abdomen pelvis wo con DATE OF EXAM: 12/09/2017 COMPARISON: None HISTORY: Lower abdominal pain. CT DLP: 1151 mGycm Automated exposure control for dose reduction was used. TECHNIQUE: Helical acquisition of images was performed from the lung bases through the pelvis. FINDINGS: There are bilateral pleural effusions. Heart is enlarged. There are mild infiltrates at the lung base s. There are clips from cholecystectomy. Liver shows no focal defect. Spleen appears normal. There is no sign of pancreatic mass. The bile ducts are not dilated. There is mild ascites. There is no sign of free air. There is mild urinary bladder wall thickening. There is no pelvic mass. I see no intestinal wall thickening. There is no evidence of a bowel obstruction. There is no evidence of a bony destruc tive process. IMPRESSION: URINARY BLADDER WALL THICKENING CONSISTENT WITH CYSTITIS. MILD ASCITES. CARDIOMEGALY WITH PLEURAL EFFUSIONS CONSISTENT WITH CONGESTIVE HEART FAILURE. SMALL HIATAL HERNIA NOT ED.
[2017-12-09] MEDS ORDERED: FUROSEMIDE 10 MG/ML 4 ML VIAL IV STA (22:09)
[2017-12-09] MEDS ORDERED: LEVOFLOXACIN 250MG-D5W PMX 750 MG in DEXTROSE/WATER 1 50ML.BAG IVPB STA (22:11)
[2017-12-09] MEDS ORDERED: LEVOFLOXACIN 750MG-D5W PMX 750 MG in DEXTROSE/WATER 1 150ML.BAG IVPB STA (22:15)
[2017-12-09 23:13] LABS: Amphetamine Screen,Urine Not Detected (NotDetected); Appearance,Urine Clear (Clear); Barbiturate Screen,Urine Detected (NotDetected); Benzodiazepines Screen,Urine Not Detected (NotDetected); Bilirubin,Urine Negative (Negative); Blood,Urine Small (Negative); Cocaine Screen,Urine Not Detected (NotDetected); Color,Urine Yellow; Glucose,Urine (UA) Negative (Negative); Ketones,Urine Negative (Negative); Leukocyte Esterase,Urine Negative (Negative); Methadone Screen, Urine Not Detected (NotDetected); Mucus,Urine Rare /hpf; Nitrite,Urine Negative (Negative); Opiate Screen,Urine Not Detected (NotDetected); Oxycodone Screen, Urine Not Detected (NotDetected); Phencyclidine Screen,Urine Not Detected (NotDetected); Protein,Urine 2+ (Negative); RBC,Urine <1 /hpf (0-5); Specific Gravity,Urine 1.016 (1.001-1.035); Tricyclic Antidepressant,Urine Not Detected (NotDetected); Urn Cannabinoid Scrn Not Detected (NotDetected); WBC,Urine 1 /hpf (0-5)
[2017-12-10] MEDS ORDERED: ONDANSETRON 4 MG/2 ML VIAL IVP STA (00:29)
[2017-12-10] MEDS: SODIUM CHLORIDE 0.9% 1,000 ML IV SCH ×2 (06:14→22:35)
[2017-12-10 07:53] LABS: Glucose,Whole Blood 186 mg/dL (75-99)
[2017-12-10] MEDS: FUROSEMIDE 10 MG/ML 4 ML VIAL IV SCH ×2 (08:52→19:51)
[2017-12-10] MEDS: LISINOPRIL 5 MG TAB PO SCH (08:52)
[2017-12-10] MEDS: METOPROLOL SUCCINATE (ER) 25 MG TAB.ER.24H PO SCH (08:52)
[2017-12-10] MEDS: ASPIRIN 325 MG TAB PO SCH (08:52)
[2017-12-10] MEDS: INSULIN ASPART 100 UNIT/ML 1 ML 10 ML VIAL SQ SCH ×5 (08:53→21:39)
[2017-12-10] MEDS ORDERED: DAPTOmycin 500 MG VIAL IV SCH (09:00)
[2017-12-10] MEDS ORDERED: ASPIRIN 81 MG PO SCH (09:00)
[2017-12-10] MEDS ORDERED: FUROSEMIDE 40 MG TAB PO SCH (09:00)
[2017-12-10 11:27] LABS: Glucose,Whole Blood 192 mg/dL (75-99)
--- NOTE | 2017-12-10 11:31 | P.HPIM ---
History of Present Illness This is a pleasant 41 years old male with past medical history of asthma, coronary artery disease with multiple vessel disease, heart failure, CVA/TIA, diabetes mellitus, GERD, hyperlipidemia, hypertension, osteoarthritis, pneumonia , sleep apnea on CPAP/BiPAP, chronic back pain, migraine, he had no hernia, rotator cuff tear, bronchitis, MRSA infection, he status post AICD, cardiac cath and stent, obesity. He presents because of dyspnea of 2 days' duration, associated with cough and scant phlegm as per patient were nonspecific in color. Associated with some chest tightness however the patient feels that from his shortness of breath. He also complained from diarrhea about 3-4 times yesterday, once today, with no associated abdominal pain no nausea vomiting were patient has epigastric tenderness Patient states that he is taking daptomycin for 2 weeks for now because he was at [facility] at that time heart attack and he needed cardiac pump which got infected and that's why he needed the daptomycin, he is not sure for how long he should be on daptomycin. He has PICC line on his right arm The ED was no noticed to be tachycardic with heart rate 107-112, rest of the vital signs are within normal limits. His WBC 5.9, hemoglobin 9.5, INR 1.4, sodium 132, potassium 4.4, creatinine 0.8, pointing is high at 0.2 (his previous troponins are always elevated between 0.05 and 1.6) UI was unremarkable for infection area from BMP is 11,700. EKG shows paced rhythm at 105 with QTC 433, chest x-ray shows new infiltrate could be related to acute pneumonia on both sides when the heart slightly enlarged. CT of the abdomen and pelvis without contrast showing urinary bladder wall thickening consistent with cystitis and mild ascites, with pleural effusions and cardiomegaly Review of Systems CONSTITUTIONAL: No fever, no malaise, no fatigue. HEENT: No recent visual problems or hearing problems. Denied any sore throat. CARDIOVASCULAR: No orthopnea, PND, no palpitations, no syncope. PULMONARY: No shortness of breath, no cough, no hemoptysis. GASTROINTESTINAL: No diarrhea, no nausea, no vomiting, no abdominal pain. Normoactive bowel sounds. NEUROLOGICAL: No headaches, no weakness, no numbness. HEMATOLOGICAL: Denies any bleeding or petechiae. GENITOURINARY: Denies any burning micturition, frequency, or urgency. MUSCULOSKELETAL/RHEUMATOLOGICAL: Denies any joint pain, swelling, or any muscle pain. ENDOCRINE: Denies any polyuria or polydipsia. Past Medical History Past Medical History: Asthma, Coronary Artery Disease (CAD), Chest Pain / Angina , Heart Failure, CVA/TIA, Diabetes Mellitus, GERD/Reflux, Hyperlipidemia, Hypertension, Myocardial Infarction (VT), Osteoarthritis (OA), Pneumonia, Skin Disorder, Sleep Apnea/CPAP/BIPAP Additional Past Medical History / Comment(s): multiple vessel CAD, ischemic cardiomyopathy, diabetic neuropathy bilateral hands and feet, hypertensive cardiovascular disease, SHELIA with no device, chronic gastritis, degenerative disc disease, chronic back pain, depression with hx of suicide attempts, gastroparesis, psoriasis, UTI, migraines, TIA, PUD, hiatal hernia, L rotator cuff tear, bronchitis, pseudoaneurysm L groin post procedure. 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 Date of Last Stent Placement:: 05/25/2017 Type of Cardiac Device: Biventricular Pacemaker, AICD Device Placement Date:: 09/19/15 Past Psychological History: Anxiety, Depression, PTSD Additional Psychological History / Comment(s): Several suicide attempts with use of insulin. PTSD - in 2000 his 3mo old son in his arms (born 2 months premature). Pt states his depression is stable at this time and he denies any suicidal thoughts or plans. He is independent. Pt lives at home with his . Pt drives and he is independent at home. Smoking Status: Never smoker Past Alcohol Use History: None Reported Additional Past Alcohol Use History / Comment(s): Past alcohol abuse - pt states he quit drinking 7yrs ago. Past Drug Use History: None Reported Additional Drug Use History / Comment(s): Pt has smoked marijuana in the past - last smoked in 1999. - Past Family History Mother Family Medical History: Coronary Artery Disease (CAD), Myocardial Infarction (VT ) Additional Family Medical History / Comment(s): 7 VT and faulty heart valve. Pt does not know the age when mother had her VT's. Father History Unknown: Yes Additional Family Medical History / Comment(s): Does not know who father is. Brother(s) Family Medical History: Cancer, Congestive Heart Failure (CHF), Myocardial Infarction (VT) Additional Family Medical History / Comment(s): Parkinsons. Pt does not know at what age his brother had an VT. Patient's other brother has lung CA Patient has Family Medical History: No Reported History Additional Family Medical History / Comment(s): There is a strong family history for heart disease, hypertension, and diabetes. Medications and Allergies Home Medications Medication Instructions Recorded Confirmed Type RX: Aspirin 81 mg PO DAILY chew 07/27/17 12/09/17 Rx RX: Gabapentin [Neurontin] 400 mg PO TID cap 07/27/17 12/09/17 Rx RX: Nitroglycerin Sl Tabs 0.4 mg SUBLINGUAL Q5M PRN tab 07/27/17 12/09/17 Rx [Nitrostat] RX: ARIPiprazole [ARIPiprazole Odt] 15 mg PO HS 10/27/17 12/09/17 History RX: Ranitidine HCl 300 mg PO DAILY 10/27/17 12/09/17 History RX: Rosuvastatin Calcium [Crestor] 40 mg PO HS 10/27/17 12/09/17 History RX: Clopidogrel [Plavix] 75 mg PO HS 12/03/17 12/09/17 History RX: DAPTOmycin [Cubicin] 850 mg IV DAILY 12/03/17 12/09/17 History RX: Ferrous Sulfate [Iron (65 MG 325 mg PO BID 12/03/17 12/09/17 History Elemental)] RX: Furosemide [Lasix] 40 mg PO DAILY 12/03/17 12/09/17 History RX: Insulin Aspart [NovoLOG 9 unit SQ TID 12/03/17 12/09/17 History (formulary)] RX: Insulin Glargine [Lantus] 27 unit SQ HS 12/03/17 12/09/17 History RX: Lisinopril [Zestril] 5 mg PO DAILY 12/03/17 12/09/17 History RX: Metoprolol Succinate [Toprol 25 mg PO DAILY 12/03/17 12/09/17 History XL] RX: Primidone [Mysoline] 500 mg PO BID 12/03/17 12/09/17 History RX: Sertraline [Zoloft] 200 mg PO DAILY 12/05/17 12/09/17 History Allergies Allergy/AdvReac Type Severity Reaction Status Date / Time erythromycin base Allergy Severe Rash/Hives Verified 12/09/17 21:16 [Erythromycin Base] cephalexin monohydrate Allergy Unknown Rash/Hives Verified 12/09/17 21:16 [From Keflex] codeine Allergy Unknown Unknown Verified 12/09/17 21:16 meclizine Allergy Unknown Unknown Verified 12/09/17 21:16 Penicillins Allergy Unknown Rash/Hives Verified 12/09/17 21:16 shellfish derived Allergy Unknown Anaphylaxis Verified 12/09/17 21:16 Fish Containing Products Allergy Anaphylaxis Verified 12/09/17 21:16 [Fish] Iodinated Contrast- Oral and Allergy Anaphylaxis Verified 12/09/17 21:16 IV Dye naproxen AdvReac Unknown Compromises Verified 12/09/17 21:16 Kidney Function atorvastatin calcium AdvReac Myalgia Verified 12/09/17 21:16 [From Lipitor] hydrocodone [From Colby] AdvReac Rapid Verified 12/09/17 21:16 Heart Rate Physical Exam Vitals: Vital Signs Temp Pulse Pulse Resp BP BP Pulse Ox 12/10/17 08:58 97.0 F L 112 H 32 H 103/69 97 12/10/17 04:00 98.3 F 112 H 22 126/73 98 12/09/17 23:50 97.8 F 107 H 22 138/68 98 12/09/17 23:32 98.0 F 81 18 123/81 96 12/09/17 22:34 107 H 18 122/67 96 12/09/17 22:02 107 H 18 124/68 98 12/09/17 21:27 20 12/09/17 20:14 99.0 F 103 H 18 99/72 99 Intake and Output 12/09/17 12/10/17 12/10/17 22:59 06:59 14:59 Output Total 300 Balance -300 Output: Urine 300 Other: Voiding Method Toilet Urinal # Voids 0 Weight 110.677 kg 109.4 kg GENERAL: The patient is alert and oriented x3, not in any acute distress. Well developed, well nourished. HEENT: Pupils are round and equally reacting to light. EOMI. No scleral icterus. No conjunctival pallor. Normocephalic, atraumatic. No pharyngeal erythema. No thyromegaly. CARDIOVASCULAR: S1 and S2 present. No murmurs, rubs, or gallops. PULMONARY: Chest is clear to auscultation, no wheezing or crackles. ABDOMEN: Soft, nontender, nondistended, normoactive bowel sounds. No palpable organomegaly. MUSCULOSKELETAL: No joint swelling or deformity. EXTREMITIES: No cyanosis, clubbing, or pedal edema. NEUROLOGICAL: Gross neurological examination did not reveal any focal deficits. SKIN: No rashes. Results CBC & Chem 7: 12/09/17 21:16 12/09/17 21:16 Labs: Abnormal Lab Results - Last 24 Hours (Table) 12/09/17 12/09/17 12/09/17 Range/Units 21:16 21:16 21:16 RBC 3.61 L (4.30-5.90) m/uL Hgb 9.5 L (13.0-17.5) gm/dL Hct 29.9 L (39.0-53.0) % RDW 19.8 H (11.5-15.5) % Lymphocytes # 0.6 L (1.0-4.8) k/uL PT (9.0-12.0) sec INR (<1.2) VBG pH 7.47 H (7.31-7.41) VBG pCO2 26 L (37-51) mmHg VBG HCO3 19 L (24-28) mmol/L Sodium 132 L (137-145) mmol/L Carbon Dioxide 20 L (22-30) mmol/L BUN 22 H (9-20) mg/dL Glucose 167 H (74-99) mg/dL POC Glucose (mg/dL) (75-99) mg/dL Alkaline Phosphatase 197 H (38-126) U/L Troponin I (0.000-0.034) ng/mL Total Protein 5.2 L (6.3-8.2) g/dL Albumin 2.6 L (3.5-5.0) g/dL Urine Protein (Negative) Urine Blood (Negative) Urine Mucus (None) /hpf Ur Barbiturates Screen (NotDetected) 12/09/17 12/09/17 12/09/17 Range/Units 21:16 21:16 22:47 RBC (4.30-5.90) m/uL Hgb (13.0-17.5) gm/dL Hct (39.0-53.0) % RDW (11.5-15.5) % Lymphocytes # (1.0-4.8) k/uL PT 13.2 H (9.0-12.0) sec INR 1.4 H (<1.2) VBG pH (7.31-7.41) VBG pCO2 (37-51) mmHg VBG HCO3 (24-28) mmol/L Sodium (137-145) mmol/L Carbon Dioxide (22-30) mmol/L BUN (9-20) mg/dL Glucose (74-99) mg/dL POC Glucose (mg/dL) (75-99) mg/dL Alkaline Phosphatase (38-126) U/L Troponin I 0.234 H* (0.000-0.034) ng/mL Total Protein (6.3-8.2) g/dL Albumin (3.5-5.0) g/dL Urine Protein 2+ H (Negative) Urine Blood Small H (Negative) Urine Mucus Rare H (None) /hpf Ur Barbiturates Screen (NotDetected) 12/09/17 12/10/17 Range/Units 22:47 07:51 RBC (4.30-5.90) m/uL Hgb (13.0-17.5) gm/dL Hct (39.0-53.0) % RDW (11.5-15.5) % Lymphocytes # (1.0-4.8) k/uL PT (9.0-12.0) sec INR (<1.2) VBG pH (7.31-7.41) VBG pCO2 (37-51) mmHg VBG HCO3 (24-28) mmol/L Sodium (137-145) mmol/L Carbon Dioxide (22-30) mmol/L BUN (9-20) mg/dL Glucose (74-99) mg/dL POC Glucose (mg/dL) 186 H (75-99) mg/dL Alkaline Phosphatase (38-126) U/L Troponin I (0.000-0.034) ng/mL Total Protein (6.3-8.2) g/dL Albumin (3.5-5.0) g/dL Urine Protein (Negative) Urine Blood (Negative) Urine Mucus (None) /hpf Ur Barbiturates Screen Detected H (NotDetected) Thrombosis Risk Factor Assmnt - Choose All That Apply Each Factor Represents 1 point: Age 41-60 years Thrombosis Risk Factor Assessment Total Risk Factor Score: 1 Thrombosis Risk Factor Assessment Level: Low Risk Assessment and Plan Assessment: possible pneumonia Possible cystitis with thickened wall Diarrhea with some epigastric discomfort, could be reactive versus gastroenteritis Cardiomegaly with pleural effusions coronary artery disease with multiple vessel disease, he is status post AICD, cardiac cath and stent, heart failure chronically elevated troponin asthma CVA/TIA diabetes mellitus GERD hyperlipidemia hypertension sleep apnea on CPAP/BiPAP chronic back pain migraine h/o rotator cuff tear obesity Plan: Continue with the same treatment, continue symptomatic treatment. Resume home medication including insulin and pressure medication. Patient is on daptomycin for heart device infection as per patient. Continue with the antibiotics daptomycin. We are not sure if patient's by needs more antibiotic, Call ID consult. calll cardiology consult for chest tightness and positive troponins, history of CHF. sent for sputum culture on blood culture. Send for UA and urine culture. Continue with aspirin and Plavix. Lasix was increased to 40 twice a day. DVT and GI prophylaxis. Further recommendations based on the course of the patient's DVT prophylaxis on heparin GI prophylaxis on Pepcid PT/OT: Pending Prognosis is guarded
[2017-12-10 17:00] LABS: Glucose,Whole Blood 146 mg/dL (75-99)
[2017-12-10] MEDS: FAMOTIDINE 20 MG/2 ML VIAL IV SCH (19:51)
[2017-12-10] MEDS: HEPARIN SODIUM,PORCINE 5,000 UNIT/ML 1 ML VIAL SQ SCH (19:51)
[2017-12-10] MEDS: CLOPIDOGREL 75 MG TAB PO SCH (19:51)
[2017-12-10] MEDS ORDERED: ACETAMINOPHEN IV (For NPO) 1,000 MG in EMPTY BAG 1 BAG IVPB PRN (20:27)
[2017-12-10 21:19] LABS: Glucose,Whole Blood 128 mg/dL (75-99)
[2017-12-10] MEDS: INSULIN DETEMIR 100 UNIT/ML 10 ML VIAL SQ SCH (21:39)
[2017-12-10] MEDS: NON-FORMULARY DRUG (Rosuvastatin Calcium [Crestor] 40 MG) PO SCH (21:40)
[2017-12-11 03:25] LABS: Glucose,Whole Blood 157 mg/dL (75-99)
[2017-12-11] MEDS ORDERED: SODIUM CHLORIDE 0.9% 500 ML IV ONE (03:50)
[2017-12-11 04:58] LABS: Glucose,Whole Blood 169 mg/dL (75-99)
[2017-12-11] MEDS ORDERED: NOREPINEPHRIN 4 MG-0.9% NS PMX 4 MG/250 ML ML IV SCH (05:15)
[2017-12-11 05:26] LABS: INR 1.5 (<1.2); Prothrombin Time 13.8 sec (9.0-12.0)
[2017-12-11 05:31] LABS: Anisocytosis Slight; Basophils % (A) 1 %; Eosinophils # (A) 0.4 k/uL (0-0.7); Eosinophils % (A) 7 %; HCT 27.6 % (39.0-53.0); HGB 8.5 gm/dL (13.0-17.5); Hypochromasia Marked; Lymphocytes # (A) 0.8 k/uL (1.0-4.8); Lymphocytes % (A) 15 %; MCH 25.8 pg (25.0-35.0); MCHC 30.7 g/dL (31.0-37.0); MCV 83.9 fL (80.0-100.0); Mean Platelet Volume 7.5; Monocytes # (A) 0.2 k/uL (0-1.0); Monocytes % (A) 5 %; Neutrophils # (A) 3.6 k/uL (1.3-7.7); Neutrophils % (A) 71 %; Platelet Count 254 k/uL (150-450); Poikilocytosis Slight; RBC 3.29 m/uL (4.30-5.90); RDW 19.6 % (11.5-15.5)
[2017-12-11 05:39] LABS: Anion Gap 10 mmol/L; Blood Urea Nitrogen 27 mg/dL (9-20); Calcium 7.8 mg/dL (8.4-10.2); Carbon Dioxide 21 mmol/L (22-30); Chloride 99 mmol/L (98-107); Glucose 140 mg/dL (74-99); Potassium 4.1 mmol/L (3.5-5.1); Sodium 130 mmol/L (137-145)
[2017-12-11 05:46] LABS: Amorphous Sediment,Urine Rare /hpf; Appearance,Urine Cloudy (Clear); Bilirubin,Urine 1+ (Negative); Blood,Urine Negative (Negative); Color,Urine Yellow; Glucose,Urine (UA) Negative (Negative); Hyaline Casts,Urine 22 /lpf (0-2); Ketones,Urine Negative (Negative); Leukocyte Esterase,Urine Negative (Negative); Mucus,Urine Occasional /hpf; Nitrite,Urine Negative (Negative); PH, Urine 5.5 (5.0-8.0); Protein,Urine 1+ (Negative); RBC,Urine <1 /hpf (0-5); Specific Gravity,Urine 1.017 (1.001-1.035); WBC,Urine 7 /hpf (0-5)
[2017-12-11] MEDS ORDERED: VANCOMYCIN IV PER PHARMACY 1 EACH MISC MISCELLANE PRN (07:01)
--- NOTE | 2017-12-11 07:06 | XR ---
EXAMINATION TYPE: XR chest 1V portable DATE OF EXAM: 12/11/2017 CLINICAL HISTORY: Difficulty breathing progress study. TECHNIQUE: Single AP portable upright view of the chest is obtained. COMPARISON: Chest x-ray from 2 days earlier and older exams. FINDINGS: Right-sided PICC line is stable. There is cardiomegaly with multi lead pacemaker/AICD rede monstrated. Diffuse central opacities bilaterally remain present. No large pleural effusion or pneumo thorax is seen bilaterally. Osseous structures are intact. IMPRESSION: Overall stable findings, cardiomegaly with central bilateral edema and/or infiltrates r edemonstrated. No significant interval change from most recent study.
--- NOTE | 2017-12-11 07:24 | P.CONS ---
History of Present Illness - Reason for Consult Consult date: 12/10/17 - Chief Complaint chest pain - History of Present Illness 41-year-old male presented to hospital with chest pain and progressive shortness of breath poor exercise tolerance generalized malaise and symptoms with nausea, some dry heaves. He does relate that he had a minimal cough with some aching much sputum production was feeling progressively worse. At the present to the emergency center and was admitted for treatment of underlying coronary artery disease. The patient has a extensive past medical history with coronary artery disease, WA stroke diabetes hypertension and cardiac dysrhythmia. Apparently 2 years ago patient suffered from Myocardial infarction at that point time requiring AICD replaced. Recently hospitalized at outside facility and there he had evidence of difficulties with abscess to his left leg from the data that we have so far the patient was bacteremic and is now being treated with daptomycin and high-dose with overall goal for salvage of his AICD. The patient presented to this facility with chest pain and shortness of breath and cough, is feeling somewhat more poorly and infectious disease consult was requested regarding his antibiotic therapy. The patient does feel poorly and the nursing staff relates that he is not feeling as well today as he was even a day ago. Review of Systems Patient feels poorly he has fatigue not currently having chest pain does have shortness of breath HEENT:Denies headache or acute visual change. Denies sinus or mouth discomforts. Denies neck stiffness or pain. Denies significant oral cavity pain. Denies difficulty on swallowing. Lungs: Patient has shortness of breath coughand sputum production or hemoptysis Cardiovascular: Patient currently without chest pain but had chest pain admission. Denies chest wall pain he has dyspnea on exertion no syncope Gastrointestinal: Patient has severe nausea earlier some dry heaves occurred no hematemesis melena or hematochezia Musculoskeletal: He has chronic back pain but denies any new acute joint pains Skin: Recent abscess on the left leg not painful at this time Neuro: Denies headache or visual change. Denies any new onset weakness or difficulty with ambulation. Denies falls or seizures. Psychiatric: Chronic anxiety and depression. Endocrine: Worsening fatigue weight gain Past Medical History Past Medical History: Asthma, Coronary Artery Disease (CAD), Chest Pain / Angina , Heart Failure, CVA/TIA, Diabetes Mellitus, GERD/Reflux, Hyperlipidemia, Hypertension, Myocardial Infarction (WA), Osteoarthritis (OA), Pneumonia, Skin Disorder, Sleep Apnea/CPAP/BIPAP Additional Past Medical History / Comment(s): multiple vessel CAD, ischemic cardiomyopathy, diabetic neuropathy bilateral hands and feet, hypertensive cardiovascular disease, SHELIA with no device, chronic gastritis, degenerative disc disease, chronic back pain, depression with hx of suicide attempts, gastroparesis, psoriasis, UTI, migraines, TIA, PUD, hiatal hernia, L rotator cuff tear, bronchitis, pseudoaneurysm L groin post procedure. 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 Date of Last Stent Placement:: 05/25/2017 Type of Cardiac Device: Biventricular Pacemaker, AICD Device Placement Date:: 09/19/15 Past Psychological History: Anxiety, Depression, PTSD Additional Psychological History / Comment(s): Several suicide attempts with use of insulin. PTSD - in 2000 his 3mo old son in his arms (born 2 months premature). Pt states his depression is stable at this time and he denies any suicidal thoughts or plans. He is independent. Pt lives at home with his . Pt drives and he is independent at home. Smoking Status: Never smoker Past Alcohol Use History: None Reported Additional Past Alcohol Use History / Comment(s): Past alcohol abuse - pt states he quit drinking 7yrs ago. Past Drug Use History: None Reported Additional Drug Use History / Comment(s): Pt has smoked marijuana in the past - last smoked in 1999. - Past Family History Mother Family Medical History: Coronary Artery Disease (CAD), Myocardial Infarction (WA ) Additional Family Medical History / Comment(s): 7 WA and faulty heart valve. Pt does not know the age when mother had her WA's. Father History Unknown: Yes Additional Family Medical History / Comment(s): Does not know who father is. Brother(s) Family Medical History: Cancer, Congestive Heart Failure (CHF), Myocardial Infarction (WA) Additional Family Medical History / Comment(s): Parkinsons. Pt does not know at what age his brother had an WA. Patient's other brother has lung CA Patient has Family Medical History: No Reported History Additional Family Medical History / Comment(s): There is a strong family history for heart disease, hypertension, and diabetes. Medications and Allergies Home Medications and Allergies Comment(s): Current Medications Aspirin (Aspirin) 325 mg PO DAILY JAKE Last Admin: 12/10/17 08:52 Dose: 325 mg Clopidogrel Bisulfate (Plavix) 75 mg PO HS JAKE Last Admin: 12/10/17 19:51 Dose: 75 mg Famotidine (Pepcid) 20 mg IV Q12HR JAKE Last Admin: 12/10/17 19:51 Dose: 20 mg Furosemide (Lasix) 40 mg IV Q12HR JAKE Last Admin: 12/10/17 19:51 Dose: 40 mg Heparin Sodium (Porcine) (Heparin) 5,000 unit SQ Q12HR JAKE Last Admin: 12/10/17 19:51 Dose: 5,000 unit Sodium Chloride (Saline 0.9%) 1,000 mls @ 20 mls/hr IV .Q24H JAKE Last Admin: 12/10/17 22:35 Dose: 20 mls/hr Acetaminophen 1,000 mg/ IV (Solution) 100 mls @ 400 mls/hr IVPB Q6HR PRN PRN Reason: Fever Stop: 12/11/17 18:14 Norepinephrine Bitartrate (Levophed-0.9% Nacl 4 Mg/250ml Pmx) 4 mg in 250 mls @ 0 mls/hr IV .Q0M JAKE; Protocol Aztreonam 2 gm/ Sodium (Chloride) 100 mls @ 100 mls/hr IVPB Q8HR JAKE; Protocol Vancomycin HCl 1,750 mg/ (Sodium Chloride) 500 mls @ 167 mls/hr IVPB Q12H JAKE Insulin Aspart (Novolog) 9 unit SQ AC-TID JAKE Last Admin: 12/10/17 13:01 Dose: 3 unit Insulin Aspart (Novolog) 0 unit SQ ACHS JAKE; Protocol Last Admin: 12/10/17 21:39 Dose: Not Given Insulin Detemir (Levemir) 27 unit SQ [facility] Last Admin: 12/10/17 21:39 Dose: Not Given Lisinopril (Zestril) 5 mg PO DAILY [facility] Last Admin: 12/10/17 08:52 Dose: 5 mg Metoprolol Succinate (Toprol Xl) 25 mg PO DAILY [facility] Last Admin: 12/10/17 08:52 Dose: 25 mg Miscellaneous Information (Pharmacy To Dose Iv Vancomycin) 1 each MISCELLANE DIRECTED PRN PRN Reason: Per Protocol Non-Formulary Medication (Rosuvastatin Calcium [Crestor]) 40 mg PO [facility] Last Admin: 12/10/17 21:40 Dose: Not Given Home Medications Medication Instructions Recorded Confirmed Type Aspirin 81 mg PO DAILY chew 07/27/17 12/09/17 Rx Gabapentin [Neurontin] 400 mg PO TID cap 07/27/17 12/09/17 Rx Nitroglycerin Sl Tabs [Nitrostat] 0.4 mg SUBLINGUAL Q5M PRN tab 07/27/17 Rx ARIPiprazole [ARIPiprazole Odt] 15 mg PO 10/27/17 12/09/17 History Ranitidine HCl 300 mg PO DAILY 10/27/17 12/09/17 History Rosuvastatin Calcium [Crestor] 40 mg PO HS 10/27/17 12/09/17 History Clopidogrel [Plavix] 75 mg PO 12/03/17 12/09/17 History DAPTOmycin [Cubicin] 850 mg IV DAILY 12/03/17 12/09/17 History Ferrous Sulfate [Iron (65 MG 325 mg PO BID 12/03/17 12/09/17 History Elemental)] Furosemide [Lasix] 40 mg PO DAILY 12/03/17 12/09/17 History Insulin Aspart [NovoLOG 9 unit SQ TID 12/03/17 12/09/17 History (formulary)] Insulin Glargine [Lantus] 27 unit SQ 12/03/17 12/09/17 History Lisinopril [Zestril] 5 mg PO DAILY 12/03/17 12/09/17 History Metoprolol Succinate [Toprol XL] 25 mg PO DAILY 12/03/17 12/09/17 History Primidone [Mysoline] 500 mg PO BID 12/03/17 12/09/17 History Sertraline [Zoloft] 200 mg PO DAILY 12/05/17 12/09/17 History Allergies Allergy/AdvReac Type Severity Reaction Status Date / Time erythromycin base Allergy Severe Rash/Hives Verified 12/09/17 21:16 [Erythromycin Base] cephalexin monohydrate Allergy Unknown Rash/Hives Verified 12/09/17 21:16 [From Keflex] codeine Allergy Unknown Unknown Verified 12/09/17 21:16 meclizine Allergy Unknown Unknown Verified 12/09/17 21:16 Penicillins Allergy Unknown Rash/Hives Verified 12/09/17 21:16 shellfish derived Allergy Unknown Anaphylaxis Verified 12/09/17 21:16 Fish Containing Products Allergy Anaphylaxis Verified 12/09/17 21:16 [Fish] Iodinated Contrast- Oral and Allergy Anaphylaxis Verified 12/09/17 21:16 IV Dye naproxen AdvReac Unknown Compromises Verified 12/09/17 21:16 Kidney Function atorvastatin calcium AdvReac Myalgia Verified 12/09/17 21:16 [From Lipitor] hydrocodone [From [place]] AdvReac Rapid Verified 12/09/17 21:16 Heart Rate Physical Exam Vitals: Vital Signs Temp Pulse Pulse Resp BP BP Pulse Ox 12/11/17 06:20 83 99/58 100 12/11/17 06:10 89 99/58 100 12/11/17 06:00 83 90/53 100 12/11/17 05:50 85 14 90/53 98 12/11/17 05:40 82 14 83/53 99 12/11/17 05:30 82 14 83/53 96 12/11/17 05:20 85 14 86/65 98 12/11/17 05:10 85 14 86/65 100 12/11/17 05:08 84 14 86/65 99 12/11/17 04:26 91 28 H 102/64 93 L 12/11/17 04:15 86 27 H 85/59 92 L 12/11/17 03:55 85 27 H 76/47 95 12/11/17 03:54 80/43 12/11/17 03:52 86/56 12/11/17 03:50 79/30 12/11/17 03:25 69/39 12/11/17 03:00 97.7 F 93 24 80/43 97 12/11/17 00:05 91/64 12/10/17 22:47 101.1 F H 97 19 80/59 93 L 12/10/17 22:45 89/50 12/10/17 20:00 99.2 F 98 23 92/61 93 L 12/10/17 15:35 97.0 F L 93 24 95/58 99 12/10/17 11:05 96.7 F L 100 26 H 101/75 100 12/10/17 08:58 97.0 F L 112 H 32 H 103/69 97 Intake and Output 12/10/17 12/10/17 12/11/17 14:59 22:59 06:59 Intake Total 790 540 Output Total 500 Balance 290 540 Intake: IV 190 60 DAPTOmycin 850 mg In 50 Sodium Chloride 0.9% 50 ml @ 100 mls/hr IVPB Q24HR JAKE Rx#:[id number] Sodium Chloride 0.9% 1, 140 60 000 ml @ 20 mls/hr IV . Q24H JAKE Rx#:[id number] Oral 600 480 Output: Urine 500 Other: Voiding Method Urinal Urinal # Voids 1 Weight 109.4 kg 41-year-old male who appears considerably older than his stated age. Patient is not diaphoretic and is not in acute distress but does state he feels poorly HEENT: Anicteric conjunctiva are pink and moist nasal mucosa grossly intact without significant lesions, there is no thrush. Neck: The neck is supple without significant lymphadenopathy or thyromegaly. Lungs: Symmetrical air entry is noted, pacer crackles are heard expiratory wheezes are scattered no acute bronchial sounds no dullness or egophony Heart: Regular without audible S1 and S2 no S3 soft S4 no murmur click or rub Abdomen: Obese, Positive bowel sounds soft and nontender without palpable masses or organomegaly. There was no guarding or rebound. Extremities: Upper extremities intact IV sites intact. PICC line left arm without tenderness erythema crepitus or fluctuance. Lower extremities have some trace edema. The abscess on the left calf area is without expressible purulence minimal erythema evidence of granulation no ascending erythema no fluctuance or necrosis Neuro: Awake alert oriented to person place and time. There are no acute new gross focal sensory motor deficits. Results CBC & Chem 7: 12/11/17 04:54 07/20/18 04:54 Labs: Abnormal Lab Results - Last 24 Hours (Table) 12/10/17 12/10/17 12/10/17 Range/Units 07:51 11:25 16:58 RBC (4.30-5.90) m/uL Hgb (13.0-17.5) gm/dL Hct (39.0-53.0) % MCHC (31.0-37.0) g/dL RDW (11.5-15.5) % Lymphocytes # (1.0-4.8) k/uL PT (9.0-12.0) sec INR (<1.2) Sodium (137-145) mmol/L Carbon Dioxide (22-30) mmol/L BUN (9-20) mg/dL Glucose (74-99) mg/dL POC Glucose (mg/dL) 186 H 192 H 146 H (75-99) mg/dL Calcium (8.4-10.2) mg/dL Urine Protein (Negative) Urine Bilirubin (Negative) Urine WBC (0-5) /hpf Amorphous Sediment (None) /hpf Hyaline Casts (0-2) /lpf Urine Mucus (None) /hpf 12/10/17 12/11/17 12/11/17 Range/Units 21:19 03:24 04:54 RBC 3.29 L (4.30-5.90) m/uL Hgb 8.5 L (13.0-17.5) gm/dL Hct 27.6 L (39.0-53.0) % MCHC 30.7 L (31.0-37.0) g/dL RDW 19.6 H (11.5-15.5) % Lymphocytes # 0.8 L (1.0-4.8) k/uL PT (9.0-12.0) sec INR (<1.2) Sodium (137-145) mmol/L Carbon Dioxide (22-30) mmol/L BUN (9-20) mg/dL Glucose (74-99) mg/dL POC Glucose (mg/dL) 128 H 157 H (75-99) mg/dL Calcium (8.4-10.2) mg/dL Urine Protein (Negative) Urine Bilirubin (Negative) Urine WBC (0-5) /hpf Amorphous Sediment (None) /hpf Hyaline Casts (0-2) /lpf Urine Mucus (None) /hpf 12/11/17 12/11/17 12/11/17 Range/Units 04:54 04:54 04:55 RBC (4.30-5.90) m/uL Hgb (13.0-17.5) gm/dL Hct (39.0-53.0) % MCHC (31.0-37.0) g/dL RDW (11.5-15.5) % Lymphocytes # (1.0-4.8) k/uL PT 13.8 H (9.0-12.0) sec INR 1.5 H (<1.2) Sodium 130 L (137-145) mmol/L Carbon Dioxide 21 L (22-30) mmol/L BUN 27 H (9-20) mg/dL Glucose 140 H (74-99) mg/dL POC Glucose (mg/dL) 169 H (75-99) mg/dL Calcium 7.8 L (8.4-10.2) mg/dL Urine Protein (Negative) Urine Bilirubin (Negative) Urine WBC (0-5) /hpf Amorphous Sediment (None) /hpf Hyaline Casts (0-2) /lpf Urine Mucus (None) /hpf 12/11/17 Range/Units 05:20 RBC (4.30-5.90) m/uL Hgb (13.0-17.5) gm/dL Hct (39.0-53.0) % MCHC (31.0-37.0) g/dL RDW (11.5-15.5) % Lymphocytes # (1.0-4.8) k/uL PT (9.0-12.0) sec INR (<1.2) Sodium (137-145) mmol/L Carbon Dioxide (22-30) mmol/L BUN (9-20) mg/dL Glucose (74-99) mg/dL POC Glucose (mg/dL) (75-99) mg/dL Calcium (8.4-10.2) mg/dL Urine Protein 1+ H (Negative) Urine Bilirubin 1+ H (Negative) Urine WBC 7 H (0-5) /hpf Amorphous Sediment Rare H (None) /hpf Hyaline Casts 22 H (0-2) /lpf Urine Mucus Occasional H (None) /hpf Microbiology - Last 24 Hours (Table) 12/09/17 22:47 Urine Culture - Preliminary Urine,Voided Laboratory Results WBC 5.0 k/uL (3.8-10.6) 12/11/17 04:54 RBC 3.29 m/uL (4.30-5.90) L 12/11/17 04:54 Hgb 8.5 gm/dL (13.0-17.5) L 12/11/17 04:54 Hct 27.6 % (39.0-53.0) L 12/11/17 04:54 MCV 83.9 fL (80.0-100.0) 12/11/17 04:54 MCH 25.8 pg (25.0-35.0) 12/11/17 04:54 MCHC 30.7 g/dL (31.0-37.0) L 12/11/17 04:54 RDW 19.6 % (11.5-15.5) H 12/11/17 04:54 Plt Count 254 k/uL (150-450) 12/11/17 04:54 Neutrophils % 71 % 12/11/17 04:54 Lymphocytes % 15 % 12/11/17 04:54 Monocytes % 5 % 12/11/17 04:54 Eosinophils % 7 % 12/11/17 04:54 Basophils % 1 % 12/11/17 04:54 Neutrophils # 3.6 k/uL (1.3-7.7) 12/11/17 04:54 Lymphocytes # 0.8 k/uL (1.0-4.8) L 12/11/17 04:54 Monocytes # 0.2 k/uL (0-1.0) 12/11/17 04:54 Eosinophils # 0.4 k/uL (0-0.7) 12/11/17 04:54 Basophils # 0.0 k/uL (0-0.2) 12/11/17 04:54 Hypochromasia Marked 12/11/17 04:54 Poikilocytosis Slight 12/11/17 04:54 Anisocytosis Slight 12/11/17 04:54 Microcytosis Slight 12/09/17 21:16 PT 13.8 sec (9.0-12.0) H 12/11/17 04:54 INR 1.5 (<1.2) H 12/11/17 04:54 VBG pH 7.47 (7.31-7.41) H 12/09/17 21:16 VBG pCO2 26 mmHg (37-51) L 12/09/17 21:16 VBG HCO3 19 mmol/L (24-28) L 12/09/17 21:16 Sodium 130 mmol/L (137-145) L 12/11/17 04:54 Potassium 4.1 mmol/L (3.5-5.1) 12/11/17 04:54 Chloride 99 mmol/L (98-107) 12/11/17 04:54 Carbon Dioxide 21 mmol/L (22-30) L 12/11/17 04:54 Anion Gap 10 mmol/L 12/11/17 04:54 BUN 27 mg/dL (9-20) H 12/11/17 04:54 Creatinine 1.10 mg/dL (0.66-1.25) 12/11/17 04:54 Est GFR (CKD-EPI)AfAm >90 (>60 ml/min/1.73 sqM) 12/11/17 04:54 Est GFR (CKD-EPI)NonAf 83 (>60 ml/min/1.73 sqM) 12/11/17 04:54 Glucose 140 mg/dL (74-99) H 12/11/17 04:54 POC Glucose (mg/dL) 169 mg/dL (75-99) H 12/11/17 04:55 POC Glu Tube Rebuilder ID Dedrick Carpenter 12/11/17 04:55 Plasma Lactic Acid [place] 1.6 mmol/L (0.7-2.0) 12/10/17 20:22 Calcium 7.8 mg/dL (8.4-10.2) L 12/11/17 04:54 Magnesium 1.7 mg/dL (1.6-2.3) 12/11/17 04:54 Total Bilirubin 1.0 mg/dL (0.2-1.3) 12/09/17 21:16 AST 25 U/L (17-59) 12/09/17 21:16 ALT 45 U/L (21-72) 12/09/17 21:16 Alkaline Phosphatase 197 U/L (38-126) H 12/09/17 21:16 Troponin I 0.234 ng/mL (0.000-0.034) H* 12/09/17 21:16 NT-Pro-B Natriuret Pep 53488 pg/mL 12/09/17 21:16 Total Protein 5.2 g/dL (6.3-8.2) L 12/09/17 21:16 Albumin 2.6 g/dL (3.5-5.0) L 12/09/17 21:16 Lipase 181 U/L (23-300) 12/09/17 21:16 Urine Color Yellow 12/11/17 05:20 Urine Appearance Cloudy (Clear) 12/11/17 05:20 Urine pH 5.5 (5.0-8.0) 12/11/17 05:20 Ur Specific [place] 1.017 (1.001-1.035) 12/11/17 05:20 Urine Protein 1+ (Negative) H 12/11/17 05:20 Urine Glucose (UA) Negative (Negative) 12/11/17 05:20 Urine Ketones Negative (Negative) 12/11/17 05:20 Urine Blood Negative (Negative) 12/11/17 05:20 Urine Nitrite Negative (Negative) 12/11/17 05:20 Urine Bilirubin 1+ (Negative) H 12/11/17 05:20 Urine Urobilinogen 8.0 mg/dL (<2.0) 12/11/17 05:20 Ur Leukocyte Esterase Negative (Negative) 12/11/17 05:20 Urine RBC <1 /hpf (0-5) 12/11/17 05:20 Urine WBC 7 /hpf (0-5) H 12/11/17 05:20 Amorphous Sediment Rare /hpf (None) H 12/11/17 05:20 Hyaline Casts 22 /lpf (0-2) H 12/11/17 05:20 Urine Mucus Occasional /hpf (None) H 12/11/17 05:20 Urine Opiates Screen Not Detected (NotDetected) 12/09/17 22:47 Ur Oxycodone Screen Not Detected (NotDetected) 12/09/17 22:47 Urine Methadone Screen Not Detected (NotDetected) 12/09/17 22:47 Ur Propoxyphene Screen Not Detected (NotDetected) 12/09/17 22:47 Ur Barbiturates Screen Detected (NotDetected) H 12/09/17 22:47 U Tricyclic Antidepress Not Detected (NotDetected) 12/09/17 22:47 Ur Phencyclidine Scrn Not Detected (NotDetected) 12/09/17 22:47 Ur Amphetamines Screen Not Detected (NotDetected) 12/09/17 22:47 U Methamphetamines Scrn Not Detected (NotDetected) 12/09/17 22:47 U Benzodiazepines Scrn Not Detected (NotDetected) 12/09/17 22:47 Urine Cocaine Screen Not Detected (NotDetected) 12/09/17 22:47 U Marijuana (THC) Screen Not Detected (NotDetected) 12/09/17 22:47 Serum Alcohol <10 mg/dL 12/09/17 21:16 Microbiology 12/09/17 22:47 Urine,Voided Urine Culture - Preliminary Chest x-ray: report reviewed (Cardiomegaly basilar infiltrates) Assessment and Plan (1) AICD (automatic cardioverter/defibrillator) present Current Visit: No Status: Acute Code(s): Z95.810 - PRESENCE OF AUTOMATIC ( IMPLANTABLE) CARDIAC DEFIBRILLATOR SNOMED Code(s): 173771079 (2) Cardiomyopathy Current Visit: No Status: Acute Code(s): I42.9 - CARDIOMYOPATHY, UNSPECIFIED SNOMED Code(s): 45169568 (3) Bacteremia Narrative/Plan: 41-year-old male that has an extensive past medical history of cardiovascular disease. Has an AICD placed a few years ago was recently hospitalized an outside hospital, there there was concerns to bacteremia likely from the abscess to the left leg. It appears to goal with salvage of the AICD he was placed on high-dose daptomycin. The patient are developed some chest pain increasing shortness of breath some cough generalized malaise and nausea and presented to our facility. With a significant cardiac history concerns to further cardiac disease and has been admitted. X-rays are mildly abnormal potential for pneumonia also exists. Daptomycin is not routinely used for pneumonia, may be effective for those that have endocarditis and pulmonary infiltrates, but for other pneumonias is not highly effective and consequently we'll alter to vancomycin at this time. Given the level illness will also adding gram-negative coverage with this many ALLERGIES Azactam will be added. Cultures are processing he will be followed. Outside data he has been requested patient to sign release of information to evaluate outside cultures and to evaluate the infectious diseases consultations to assist with the overall plan especially discharge planning. The patient is acutely ill and there is concerns for his deterioration. Current Visit: Yes Status: Acute Code(s): R78.81 - BACTEREMIA SNOMED Code( s): 1127373
[2017-12-11] MEDS ORDERED: Magnesium Replacement Protocol 1 EACH MISC MISCELLANE PRN (07:33)
[2017-12-11] MEDS: VANCOMYCIN 1,750 MG in SODIUM CHLORIDE 0.9% 500 ML IVPB SCH ×2 (09:16→20:51)
[2017-12-11] MEDS: INSULIN ASPART 100 UNIT/ML 1 ML 10 ML VIAL SQ SCH ×7 (09:18→21:20)
[2017-12-11] MEDS: AZTREONAM 2 GM in SODIUM CHLORIDE 0.9% 100 ML IVPB SCH ×3 (09:19→23:49)
[2017-12-11] MEDS: ASPIRIN 325 MG TAB PO SCH (09:22)
[2017-12-11] MEDS: LISINOPRIL 5 MG TAB PO SCH (09:23)
[2017-12-11] MEDS: HEPARIN SODIUM,PORCINE 5,000 UNIT/ML 1 ML VIAL SQ SCH ×2 (09:23→21:20)
[2017-12-11] MEDS: FAMOTIDINE 20 MG/2 ML VIAL IV SCH (09:23)
[2017-12-11] MEDS ORDERED: NOREPINEPHRINE 4 MG in DEXTROSE 5% IN WATER 250 ML IV SCH ×2 (09:45)
[2017-12-11] MEDS: METOPROLOL SUCCINATE (ER) 25 MG TAB.ER.24H PO SCH (11:54)
[2017-12-11] MEDS: MAGNESIUM SULFATE-D5W PMX 1 GM in DEXTROSE/WATER 1 100ML.BAG IVPB SCH ×2 (12:01→13:27)
--- NOTE | 2017-12-11 12:18 | P.PN ---
Subjective This is a pleasant 41 years old male with past medical history of asthma, coronary artery disease with multiple vessel disease, heart failure, CVA/TIA, diabetes mellitus, GERD, hyperlipidemia, hypertension, osteoarthritis, pneumonia , sleep apnea on CPAP/BiPAP, chronic back pain, migraine, he had no hernia, rotator cuff tear, bronchitis, MRSA infection, he status post AICD, cardiac cath and stent, obesity. He presents because of dyspnea of 2 days' duration, associated with cough and scant phlegm as per patient were nonspecific in color. Associated with some chest tightness however the patient feels that from his shortness of breath. He also complained from diarrhea about 3-4 times yesterday, once today, with no associated abdominal pain no nausea vomiting were patient has epigastric tenderness Patient states that he is taking daptomycin for 2 weeks for now because he was at [facility] at that time heart attack and he needed cardiac pump which got infected and that's why he needed the daptomycin, he is not sure for how long he should be on daptomycin. He has PICC line on his right arm The ED was no noticed to be tachycardic with heart rate 107-112, rest of the vital signs are within normal limits. His WBC 5.9, hemoglobin 9.5, INR 1.4, sodium 132, potassium 4.4, creatinine 0.8, troponin is high at 0.2 (his previous troponins are always elevated between 0.05 and 1.6) UA was unremarkable for infection area from BMP is 11,700. EKG shows paced rhythm at 105 with QTC 433, chest x-ray shows new infiltrate could be related to acute pneumonia on both sides when the heart slightly enlarged. CT of the abdomen and pelvis without contrast showing urinary bladder wall thickening consistent with cystitis and mild ascites, with pleural effusions and cardiomegaly 12/11/2017 I saw and examined the patient today in the ICU, Patient was sent to the ICU overnight for suspicion of hypotension. His systolic blood pressure drops during sleep to 70s, over he goes up when he wakes up. Patient didn't need any pressors. Patient was awakened and in distress, is little bit short of breath and he says he is the same as he came in, No improvement or worsening. No chest pain. No more diarrhea or loose stools since admission. His sodium is down at 130. And creatinine slightly up from 0.8 to 1.1 ID consult is appreciated his antibiotics were changed from daptomycin to vancomycin and aztreonam. Review of systems CONSTITUTIONAL: No fever, no malaise, no fatigue. HEENT: No recent visual problems or hearing problems. Denied any sore throat. CARDIOVASCULAR: No orthopnea, PND, no palpitations, no syncope. PULMONARY: No shortness of breath, no cough, no hemoptysis. GASTROINTESTINAL: No diarrhea, no nausea, no vomiting, no abdominal pain. Normoactive bowel sounds. NEUROLOGICAL: No headaches, no weakness, no numbness. HEMATOLOGICAL: Denies any bleeding or petechiae. GENITOURINARY: Denies any burning micturition, frequency, or urgency. MUSCULOSKELETAL/RHEUMATOLOGICAL: Denies any joint pain, swelling, or any muscle pain. ENDOCRINE: Denies any polyuria or polydipsia. Objective - Vital Signs Vital signs: Vital Signs Temp 97.7 F 12/11/17 08:00 Pulse 89 12/11/17 10:15 Resp 24 12/11/17 10:15 BP 107/63 12/11/17 10:15 Pulse Ox 97 12/11/17 10:15 Intake & Output 12/10/17 12/11/17 12/11/17 18:59 06:59 18:59 Intake Total 790 560 514 Output Total 575 60 155 Balance 215 500 359 Weight 109.4 kg Intake: IV 190 80 514 DAPTOmycin 850 mg In 50 Sodium Chloride 0.9% 50 ml @ 100 mls/hr IVPB Q24HR [facility] Rx#:[id number] Sodium Chloride 0.9% 1, 140 80 80 000 ml @ 20 mls/hr IV . Q24H [facility] Rx#:[id number] azactam 100 vancomycin 334 Oral 600 480 Output: Urine 575 60 155 Other: Voiding Method Urinal Urinal # Voids 1 - Exam GENERAL: The patient is alert and oriented x3, not in any acute distress. Well developed, well nourished. HEENT: Pupils are round and equally reacting to light. EOMI. No scleral icterus. No conjunctival pallor. Normocephalic, atraumatic. No pharyngeal erythema. No thyromegaly. CARDIOVASCULAR: S1 and S2 present. No murmurs, rubs, or gallops. PULMONARY: Chest is clear to auscultation, no wheezing or crackles. ABDOMEN: Soft, nontender, nondistended, normoactive bowel sounds. No palpable organomegaly. MUSCULOSKELETAL: No joint swelling or deformity. EXTREMITIES: No cyanosis, clubbing, or pedal edema. NEUROLOGICAL: Gross neurological examination did not reveal any focal deficits. SKIN: No rashes. - Labs CBC & Chem 7: 12/11/17 04:54 12/11/17 04:54 Labs: Abnormal Lab Results - Last 24 Hours (Table) 12/10/17 12/10/17 12/11/17 Range/Units 16:58 21:19 03:24 RBC (4.30-5.90) m/uL Hgb (13.0-17.5) gm/dL Hct (39.0-53.0) % MCHC (31.0-37.0) g/dL RDW (11.5-15.5) % Lymphocytes # (1.0-4.8) k/uL PT (9.0-12.0) sec INR (<1.2) Sodium (137-145) mmol/L Carbon Dioxide (22-30) mmol/L BUN (9-20) mg/dL Glucose (74-99) mg/dL POC Glucose (mg/dL) 146 H 128 H 157 H (75-99) mg/dL Calcium (8.4-10.2) mg/dL Urine Protein (Negative) Urine Bilirubin (Negative) Urine WBC (0-5) /hpf Amorphous Sediment (None) /hpf Hyaline Casts (0-2) /lpf Urine Mucus (None) /hpf 12/11/17 12/11/17 12/11/17 Range/Units 04:54 04:54 04:54 RBC 3.29 L (4.30-5.90) m/uL Hgb 8.5 L (13.0-17.5) gm/dL Hct 27.6 L (39.0-53.0) % MCHC 30.7 L (31.0-37.0) g/dL RDW 19.6 H (11.5-15.5) % Lymphocytes # 0.8 L (1.0-4.8) k/uL PT 13.8 H (9.0-12.0) sec INR 1.5 H (<1.2) Sodium 130 L (137-145) mmol/L Carbon Dioxide 21 L (22-30) mmol/L BUN 27 H (9-20) mg/dL Glucose 140 H (74-99) mg/dL POC Glucose (mg/dL) (75-99) mg/dL Calcium 7.8 L (8.4-10.2) mg/dL Urine Protein (Negative) Urine Bilirubin (Negative) Urine WBC (0-5) /hpf Amorphous Sediment (None) /hpf Hyaline Casts (0-2) /lpf Urine Mucus (None) /hpf 12/11/17 12/11/17 Range/Units 04:55 05:20 RBC (4.30-5.90) m/uL Hgb (13.0-17.5) gm/dL Hct (39.0-53.0) % MCHC (31.0-37.0) g/dL RDW (11.5-15.5) % Lymphocytes # (1.0-4.8) k/uL PT (9.0-12.0) sec INR (<1.2) Sodium (137-145) mmol/L Carbon Dioxide (22-30) mmol/L BUN (9-20) mg/dL Glucose (74-99) mg/dL POC Glucose (mg/dL) 169 H (75-99) mg/dL Calcium (8.4-10.2) mg/dL Urine Protein 1+ H (Negative) Urine Bilirubin 1+ H (Negative) Urine WBC 7 H (0-5) /hpf Amorphous Sediment Rare H (None) /hpf Hyaline Casts 22 H (0-2) /lpf Urine Mucus Occasional H (None) /hpf Microbiology - Last 24 Hours (Table) 12/11/17 05:20 Urine Culture - Preliminary Urine,Catheterized 12/09/17 22:47 Urine Culture - Final Urine,Voided Assessment and Plan Assessment: possible pneumonia Possible cystitis with thickened wall Diarrhea with some epigastric discomfort, could be reactive versus gastroenteritis Cardiomegaly with pleural effusions coronary artery disease with multiple vessel disease, he is status post AICD, cardiac cath and stent, heart failure chronically elevated troponin asthma CVA/TIA diabetes mellitus GERD hyperlipidemia hypertension sleep apnea on CPAP/BiPAP chronic back pain migraine h/o rotator cuff tear obesity Plan: Continue with the same treatment, continue symptomatic treatment. Resume home medication including insulin and pressure medication. Patient is on daptomycin for AICD infection as per patient. ID input is appreciated. Change daptomycin to IV vancomycin and is suturing them. calll cardiology consult for chest tightness and positive troponins, history of CHF. sent for sputum culture on blood culture. Consult for pulmonary. Continue with aspirin and Plavix. Lasix was increased to 40 twice a day, although her we will decrease it to 40 mg daily in view of his low blood pressure and diarrhea.. And DVT and GI prophylaxis. Also patient has drop in hemoglobin from 9.5 to 8.5, iron studies , B12 and FOBT: Pending: Pending. INR 1.4 0 Monocryl follow-up INR Further recommendations based on the course of the patient's DVT prophylaxis on heparin GI prophylaxis on Pepcid PT/OT: Pending Prognosis is guarded
[2017-12-11 12:32] LABS: Glucose,Whole Blood 170 mg/dL (75-99)
--- NOTE | 2017-12-11 13:38 | P.NPCON ---
History of Present Illness - Reason for Consult acute renal failure - History of Present Illness Reason for consultation: Acute kidney injury and hyponatremia History of present illness: Patient is a 41-year-old male seen in renal consultation for acute kidney injury and hyponatremia. Patient's baseline creatinine is in the range of 0.8- 1 and is elevated at 1.1 today. Patient presented to the hospital with chest pain and shortness of breath. Patient was recently discharged from [facility] and at that time was admitted for acute myocardial infarction. Patient has extensive cardiac history with multiple stent placements. He has systolic CHF with ejection fraction of 20-25%. Patient states he gained about 10 pounds in the last 2 days. During his admission and before dinner was concerned that his AICD may have been infected and he was receiving IV daptomycin. He is currently being followed by infectious disease and is maintained on IV vancomycin and aztreonam. He is maintained on Lasix 40 mg IV 3 times daily. He has good urine output. Denies active chest pain or shortness of breath. Oral intake is good. No vomiting or diarrhea. He is noted to have pleural effusions. Denies use of NSAIDs. He has a long-standing history of diabetes mellitus. Vital signs are stable. General: The patient appeared well nourished and normally developed. HEENT: Head exam is unremarkable. Neck is without jugular venous distension. LUNGS: Lungs are clear to auscultation and percussion. Breath sounds decreased. HEART: Rate and Rhythm are regular. First and second heart sounds normal. No murmurs, rubs or gallops. ABDOMEN: Abdominal exam reveals normal bowel sounds. Non-tender and non- distended. No evidence of peritonitis. EXTREMITITES: 1+ edema. Past Medical History Past Medical History: Asthma, Coronary Artery Disease (CAD), Chest Pain / Angina , Heart Failure, CVA/TIA, Diabetes Mellitus, GERD/Reflux, Hyperlipidemia, Hypertension, Myocardial Infarction (MD), Osteoarthritis (OA), Pneumonia, Skin Disorder, Sleep Apnea/CPAP/BIPAP Additional Past Medical History / Comment(s): multiple vessel CAD, ischemic cardiomyopathy, diabetic neuropathy bilateral hands and feet, hypertensive cardiovascular disease, SHELIA with no device, chronic gastritis, degenerative disc disease, chronic back pain, depression with hx of suicide attempts, gastroparesis, psoriasis, UTI, migraines, TIA, PUD, hiatal hernia, L rotator cuff tear, bronchitis, pseudoaneurysm L groin post procedure. Last Myocardial Infarction Date:: November 2017 History of Any Multi-Drug Resistant Organisms: MRSA Date of last positivie culture/infection: 11/05/2017 (Culture done at [facility]) MDRO Source:: legs Past Surgical History: AICD, Appendectomy, Cholecystectomy, Heart Catheterization With Stent, Hernia Repair Additional Past Surgical History / Comment(s): Pt has had multiple cardiac procedures- caths/stents/PTCA, last stent placed at [facility] - May 2017, [place], R inguinal hernia repair, umbilical hernia repair, right orchiectomy due to necrosis, right hand surgery r/t injury, colonoscopy, cystoscopy ( scraped bladder parrish) Past Anesthesia/Blood Transfusion Reactions: No Reported Reaction Additional Past Anesthesia/Blood Transfusion Reaction / Comment(s): . Date of Last Stent Placement:: 05/25/2017 Type of Cardiac Device: Biventricular Pacemaker, AICD Device Placement Date:: 09/19/15 Past Psychological History: Anxiety, Depression, PTSD Additional Psychological History / Comment(s): Several suicide attempts with use of insulin. PTSD - in 2000 his 3mo old son in his arms (born 2 months premature). Pt states his depression is stable at this time and he denies any suicidal thoughts or plans. He is independent. Pt lives at home with his . Pt drives and he is independent at home. Smoking Status: Never smoker Past Alcohol Use History: None Reported Additional Past Alcohol Use History / Comment(s): Past alcohol abuse - pt states he quit drinking 7yrs ago. Past Drug Use History: None Reported Additional Drug Use History / Comment(s): Pt has smoked marijuana in the past - last smoked in 1999. - Past Family History Mother Family Medical History: Coronary Artery Disease (CAD), Myocardial Infarction (MD ) Additional Family Medical History / Comment(s): 7 MD and faulty heart valve. Pt does not know the age when mother had her MD's. Father History Unknown: Yes Additional Family Medical History / Comment(s): Does not know who father is. Brother(s) Family Medical History: Cancer, Congestive Heart Failure (CHF), Myocardial Infarction (MD) Additional Family Medical History / Comment(s): Parkinsons. Pt does not know at what age his brother had an MD. Patient's other brother has lung CA Patient has Family Medical History: No Reported History Additional Family Medical History / Comment(s): There is a strong family history for heart disease, hypertension, and diabetes. Medications and Allergies Home Medications Medication Instructions Recorded Confirmed Type Aspirin 81 mg PO DAILY chew 07/27/17 12/09/17 Rx Gabapentin [Neurontin] 400 mg PO TID cap 07/27/17 12/09/17 Rx Nitroglycerin Sl Tabs [Nitrostat] 0.4 mg SUBLINGUAL Q5M PRN tab 07/27/17 Rx ARIPiprazole [ARIPiprazole Odt] 15 mg PO HS 10/27/17 12/09/17 History Ranitidine HCl 300 mg PO DAILY 10/27/17 12/09/17 History Rosuvastatin Calcium [Crestor] 40 mg PO HS 10/27/17 12/09/17 History Clopidogrel [Plavix] 75 mg PO HS 12/03/17 12/09/17 History DAPTOmycin [Cubicin] 850 mg IV DAILY 12/03/17 12/09/17 History Ferrous Sulfate [Iron (65 MG 325 mg PO BID 12/03/17 12/09/17 History Elemental)] Furosemide [Lasix] 40 mg PO DAILY 12/03/17 12/09/17 History Insulin Aspart [NovoLOG 9 unit SQ TID 12/03/17 12/09/17 History (formulary)] Insulin Glargine [Lantus] 27 unit SQ HS 12/03/17 12/09/17 History Lisinopril [Zestril] 5 mg PO DAILY 12/03/17 12/09/17 History Metoprolol Succinate [Toprol XL] 25 mg PO DAILY 12/03/17 12/09/17 History Primidone [Mysoline] 500 mg PO BID 12/03/17 12/09/17 History Sertraline [Zoloft] 200 mg PO DAILY 12/05/17 12/09/17 History Allergies Allergy/AdvReac Type Severity Reaction Status Date / Time erythromycin base Allergy Severe Rash/Hives Verified 12/09/17 21:16 [Erythromycin Base] cephalexin monohydrate Allergy Unknown Rash/Hives Verified 12/09/17 21:16 [From Keflex] codeine Allergy Unknown Unknown Verified 12/09/17 21:16 meclizine Allergy Unknown Unknown Verified 12/09/17 21:16 Penicillins Allergy Unknown Rash/Hives Verified 12/09/17 21:16 shellfish derived Allergy Unknown Anaphylaxis Verified 12/09/17 21:16 Fish Containing Products Allergy Anaphylaxis Verified 12/09/17 21:16 [Fish] Iodinated Contrast- Oral and Allergy Anaphylaxis Verified 12/09/17 21:16 IV Dye naproxen AdvReac Unknown Compromises Verified 12/09/17 21:16 Kidney Function atorvastatin calcium AdvReac Myalgia Verified 12/09/17 21:16 [From Lipitor] hydrocodone [From [place]] AdvReac Rapid Verified 12/09/17 21:16 Heart Rate Physical Exam Vitals: Vital Signs Temp Pulse Pulse Resp BP BP Pulse Ox 12/11/17 13:00 96 23 107/64 100 12/11/17 12:00 99.3 F 92 26 H 90/55 99 12/11/17 11:45 91 22 90/55 100 12/11/17 11:30 88 25 H 92/49 100 12/11/17 11:15 92 25 H 92/49 93 L 12/11/17 11:00 90 26 H 92/49 95 12/11/17 10:45 94 19 93/57 12/11/17 10:30 0 L 24 102/65 97 12/11/17 10:15 89 24 107/63 97 12/11/17 10:00 89 26 H 96/68 97 12/11/17 09:45 80 23 96/68 95 12/11/17 09:30 44 L 21 104/62 95 12/11/17 09:15 51 L 21 99/66 95 12/11/17 09:00 51 L 20 111/68 96 12/11/17 08:45 87 6 L 111/68 93 L 12/11/17 08:30 91 19 104/63 96 12/11/17 08:15 88 23 106/62 97 12/11/17 08:00 97.7 F 67 27 H 97/67 97 12/11/17 07:45 63 24 97/67 99 12/11/17 07:30 86 26 H 104/65 99 12/11/17 07:15 85 98/67 99 12/11/17 07:00 85 16 104/68 100 12/11/17 06:50 84 16 104/68 100 07/20/18 06:40 85 16 90/60 100 12/11/17 06:30 84 16 90/60 100 12/11/17 06:20 83 99/58 100 12/11/17 06:10 89 99/58 100 12/11/17 06:00 83 90/53 100 12/11/17 05:50 85 14 90/53 98 12/11/17 05:40 82 14 83/53 99 12/11/17 05:30 82 14 83/53 96 12/11/17 05:20 85 14 86/65 98 12/11/17 05:10 85 14 86/65 100 12/11/17 05:08 84 14 86/65 99 12/11/17 04:26 91 28 H 102/64 93 L 12/11/17 04:15 86 27 H 85/59 92 L 12/11/17 03:55 85 27 H 76/47 95 12/11/17 03:54 80/43 12/11/17 03:52 86/56 12/11/17 03:50 79/30 12/11/17 03:25 69/39 12/11/17 03:00 97.7 F 93 24 80/43 97 12/11/17 00:05 91/64 12/10/17 22:47 101.1 F H 97 19 80/59 93 L 12/10/17 22:45 89/50 12/10/17 20:00 99.2 F 98 23 92/61 93 L 12/10/17 15:35 97.0 F L 93 24 95/58 99 Intake and Output 12/10/17 12/11/17 12/11/17 22:59 06:59 14:59 Intake Total 540 20 534 Output Total 60 260 Balance 540 -40 274 Intake: IV 60 20 534 Sodium Chloride 0.9% 1, 60 20 100 000 ml @ 20 mls/hr IV . Q24H [facility] Rx#:[id number] azactam 100 vancomycin 334 Oral 480 Output: Urine 60 260 Other: Voiding Method Urinal Results - Lab Results Most recent lab results Calcium 7.8 mg/dL (8.4-10.2) L 12/11/17 04:54 Magnesium 1.7 mg/dL (1.6-2.3) 12/11/17 04:54 12/11/17 04:54 12/11/17 04:54 Assessment and Plan Plan: Assessment: 1. Nonoliguric acute kidney injury secondary to ATN secondary to cardiorenal syndrome and hypotension. Creatinine 1.1 today. 2. Volume overload. 3. Systolic CHF with ejection fraction of 20-25%. Status post AICD placement. 4. Hypervolemic hyponatremia. 5. Insulin-dependent diabetes mellitus. 6. Anemia. Rule out iron deficiency. 7. Hypotension related to underlying cardiac status. 8. Left leg abscess maintained on IV antibiotics. Infectious disease following. Also concern for pneumonia. Plan: Continue Lasix 40 mg IV 3 times daily. 1500 mL fluid restriction. Check iron studies. Check cortisol level. Avoid nephrotoxic agents and hypotensive episodes. Discontinue lisinopril. Add midodrine 5 mg 3 times daily. Thank you for the consultation. I will continue to follow the patient with you during his hospital stay.
[2017-12-11] MEDS ORDERED: MAGNESIUM SULFATE-D5W PMX 1 GM in DEXTROSE/WATER 1 100ML.BAG IVPB SCH (14:00)
[2017-12-11] MEDS: MIDODRINE 5 MG TAB PO SCH ×2 (14:42→16:40)
--- NOTE | 2017-12-11 14:54 | P.CNPUL ---
History of Present Illness Consult date: 12/11/17 Requesting physician: Ricardo E Sheet Reason for consult: other (Pulmonary edema, hypertension, possible pneumonia) Chief complaint: Shortness of breath and chest pain. History of present illness: This is a 41-year-old white male with history of cardiomyopathy, ischemic in nature, related to previous AZ about 2 years ago. Patient required AICD placement, and he was recently at [facility] for issues related to his defibrillator, and apparently had a left leg abscess with bacteremia requiring high doses of daptomycin. Patient was admitted yesterday with mostly symptoms of shortness of breath, cough, and some vague chest pain and discomfort. Chest x-ray on admission showed interstitial edema, however based on the chest x-ray it is difficult to rule out underlying pneumonia. Patient was admitted, placed on diuretics, antibiotics, and he was seen by infectious disease on consultation. Last night, patient developed low blood pressure, and he was transferred to the ICU for possible starting the patient on norepinephrine. However he was given 1 bolus of 500 mL of 0.9 normal saline, and by the time he was transferred to the ICU, his blood pressure stabilizes. Did not require any pressors. Presently remains in the intensive care unit, and we plan to transfer him back to monitor bed on selective. Since admission the patient was seen by many consultants including infectious disease, and he was placed on vancomycin. He was also seen by nephrology for acute kidney injury and hyponatremia. Antibiotics frankel patient is now on vancomycin and aztreonam. Looking back at his chart, patient is known to have history of systolic congestive heart failure with ejection fraction of 20%. And his baseline creatinine is usually normal. During my evaluation, patient denied any headache , no blurred vision, no dizziness, some shortness of breath, no cough, no wheezing, no chest pain. No palpitations no nausea no vomiting no abdominal pain no melena no hematemesis no dysuria and no frequency no urgency. Continues to have a superficial ulceration on the anterior aspect of the right lower extremity just below the knee. Review of Systems 14 point review of systems were obtained, please refer to pertinent positives in HPI otherwise remaining systems are negative. Past Medical History Past Medical History: Asthma, Coronary Artery Disease (CAD), Chest Pain / Angina , Heart Failure, CVA/TIA, Diabetes Mellitus, GERD/Reflux, Hyperlipidemia, Hypertension, Myocardial Infarction (AZ), Osteoarthritis (OA), Pneumonia, Skin Disorder, Sleep Apnea/CPAP/BIPAP Additional Past Medical History / Comment(s): multiple vessel CAD, ischemic cardiomyopathy, diabetic neuropathy bilateral hands and feet, hypertensive cardiovascular disease, SHELIA with no device, chronic gastritis, degenerative disc disease, chronic back pain, depression with hx of suicide attempts, gastroparesis, psoriasis, UTI, migraines, TIA, PUD, hiatal hernia, L rotator cuff tear, bronchitis, pseudoaneurysm L groin post procedure. 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 Date of Last Stent Placement:: 05/25/2017 Type of Cardiac Device: Biventricular Pacemaker, AICD Device Placement Date:: 09/19/15 Past Psychological History: Anxiety, Depression, PTSD Additional Psychological History / Comment(s): Several suicide attempts with use of insulin. PTSD - in 2000 his 3mo old son in his arms (born 2 months premature). Pt states his depression is stable at this time and he denies any suicidal thoughts or plans. He is independent. Pt lives at home with his . Pt drives and he is independent at home. Smoking Status: Never smoker Past Alcohol Use History: None Reported Additional Past Alcohol Use History / Comment(s): Past alcohol abuse - pt states he quit drinking 7yrs ago. Past Drug Use History: None Reported Additional Drug Use History / Comment(s): Pt has smoked marijuana in the past - last smoked in 1999. - Past Family History Mother Family Medical History: Coronary Artery Disease (CAD), Myocardial Infarction (AZ ) Additional Family Medical History / Comment(s): 7 AZ and faulty heart valve. Pt does not know the age when mother had her AZ's. Father History Unknown: Yes Additional Family Medical History / Comment(s): Does not know who father is. Brother(s) Family Medical History: Cancer, Congestive Heart Failure (CHF), Myocardial Infarction (AZ) Additional Family Medical History / Comment(s): Parkinsons. Pt does not know at what age his brother had an AZ. Patient's other brother has lung CA Patient has Family Medical History: No Reported History Additional Family Medical History / Comment(s): There is a strong family history for heart disease, hypertension, and diabetes. Medications and Allergies Home Medications Medication Instructions Recorded Confirmed Type Aspirin 81 mg PO DAILY chew 07/27/17 12/09/17 Rx Gabapentin [Neurontin] 400 mg PO TID cap 07/27/17 12/09/17 Rx Nitroglycerin Sl Tabs [Nitrostat] 0.4 mg SUBLINGUAL Q5M PRN tab 07/27/17 Rx ARIPiprazole [ARIPiprazole Odt] 15 mg PO HS 10/27/17 12/09/17 History Ranitidine HCl 300 mg PO DAILY 10/27/17 12/09/17 History Rosuvastatin Calcium [Crestor] 40 mg PO HS 10/27/17 12/09/17 History Clopidogrel [Plavix] 75 mg PO HS 12/03/17 12/09/17 History DAPTOmycin [Cubicin] 850 mg IV DAILY 12/03/17 12/09/17 History Ferrous Sulfate [Iron (65 MG 325 mg PO BID 12/03/17 12/09/17 History Elemental)] Furosemide [Lasix] 40 mg PO DAILY 12/03/17 12/09/17 History Insulin Aspart [NovoLOG 9 unit SQ TID 12/03/17 12/09/17 History (formulary)] Insulin Glargine [Lantus] 27 unit SQ HS 12/03/17 12/09/17 History Lisinopril [Zestril] 5 mg PO DAILY 12/03/17 12/09/17 History Metoprolol Succinate [Toprol XL] 25 mg PO DAILY 12/03/17 12/09/17 History Primidone [Mysoline] 500 mg PO BID 12/03/17 12/09/17 History Sertraline [Zoloft] 200 mg PO DAILY 12/05/17 12/09/17 History Allergies Allergy/AdvReac Type Severity Reaction Status Date / Time erythromycin base Allergy Severe Rash/Hives Verified 12/09/17 21:16 [Erythromycin Base] cephalexin monohydrate Allergy Unknown Rash/Hives Verified 12/09/17 21:16 [From Keflex] codeine Allergy Unknown Unknown Verified 12/09/17 21:16 meclizine Allergy Unknown Unknown Verified 12/09/17 21:16 Penicillins Allergy Unknown Rash/Hives Verified 12/09/17 21:16 shellfish derived Allergy Unknown Anaphylaxis Verified 12/09/17 21:16 Fish Containing Products Allergy Anaphylaxis Verified 12/09/17 21:16 [Fish] Iodinated Contrast- Oral and Allergy Anaphylaxis Verified 12/09/17 21:16 IV Dye naproxen AdvReac Unknown Compromises Verified 12/09/17 21:16 Kidney Function atorvastatin calcium AdvReac Myalgia Verified 12/09/17 21:16 [From Lipitor] hydrocodone [From [place]] AdvReac Rapid Verified 12/09/17 21:16 Heart Rate Physical Exam Vitals: Vital Signs Temp Pulse Pulse Resp BP BP Pulse Ox 12/11/17 13:00 96 23 107/64 100 12/11/17 12:00 99.3 F 92 26 H 90/55 99 12/11/17 11:45 91 22 90/55 100 12/11/17 11:30 88 25 H 92/49 100 12/11/17 11:15 92 25 H 92/49 93 L 12/11/17 11:00 90 26 H 92/49 95 12/11/17 10:45 94 19 93/57 12/11/17 10:30 0 L 24 102/65 97 12/11/17 10:15 89 24 107/63 97 12/11/17 10:00 89 26 H 96/68 97 12/11/17 09:45 80 23 96/68 95 12/11/17 09:30 44 L 21 104/62 95 12/11/17 09:15 51 L 21 99/66 95 12/11/17 09:00 51 L 20 111/68 96 12/11/17 08:45 87 6 L 111/68 93 L 12/11/17 08:30 91 19 104/63 96 12/11/17 08:15 88 23 106/62 97 07/20/18 08:00 97.7 F 67 27 H 97/67 97 12/11/17 07:45 63 24 97/67 99 12/11/17 07:30 86 26 H 104/65 99 18 07:15 85 98/67 99 18 07:00 85 16 104/68 100 18 06:50 84 16 104/68 100 18 06:40 85 16 90/60 100 18 06:30 84 16 90/60 100 18 06:20 83 99/58 100 18 06:10 89 99/58 100 12/11/17 06:00 83 90/53 100 12/11/17 05:50 85 14 90/53 98 12/11/17 05:40 82 14 83/53 99 12/11/17 05:30 82 14 83/53 96 12/11/17 05:20 85 14 86/65 98 12/11/17 05:10 85 14 86/65 100 12/11/17 05:08 84 14 86/65 99 12/11/17 04:26 91 28 H 102/64 93 L 12/11/17 04:15 86 27 H 85/59 92 L 12/11/17 03:55 85 27 H 76/47 95 18 03:54 80/43 2018 03:52 86/56 18 03:50 79/30 18 03:25 69/39 18 03:00 97.7 F 93 24 80/43 97 12/11/17 00:05 91/64 18 22:47 101.1 F H 97 19 80/59 93 L 18 22:45 89/50 18 20:00 99.2 F 98 23 92/61 93 L 18 15:35 97.0 F L 93 24 95/58 99 Intake and Output 12/10/18 /20/18 12/11/17 22:59 06:59 14:59 Intake Total 540 20 534 Output Total 60 260 Balance 540 -40 274 Intake: IV 60 20 534 Sodium Chloride 0.9% 1, 60 20 100 000 ml @ 20 mls/hr IV . Q24H COUNTS INCLUDE 234 BEDS AT THE [facility] Rx#:[id number] azactam 100 vancomycin 334 Oral 480 Output: Urine 60 260 Other: Voiding Method Urinal Physical Exam revealed a 41-year-old white male, in no form of respiratory distress, on nasal cannula. Head: Atraumatic, normocephalic. HEENT:[Neck is supple.] [No neck masses.] [No thyromegaly.] [No JVD.] PERRLA, EOMI, no icterus, throat is clear, no oral thrush. Chest: [Symmetrical expansion, crackles at the bases bilaterally, some rhonchi on forced expiratory maneuver noted bilaterally. No chest wall tenderness..] Cardiac Exam: [Distant S1 and S2, no S3 gallop, no murmur.] Abdomen: [Obese, Soft, nontender, no megaly, no rebound, no guarding, normal bowel sounds.] Extremities: [No clubbing, trace of bipedal edema, no cyanosis.] Evidence of ulceration noted at the left calf region just below the left knee with minimal purulent drainage and minimal erythema surrounding the ulceration. Neurological Exam: [No focal neurologic deficit. Psychiatric: Normal mood, affect, and mental status examination. ] Lymphatics: No lymphadenopathy. Results - Laboratory Findings CBC and BMP: 12/11/17 04:54 12/11/17 04:54 PT/INR, D-dimer PT 13.8 sec (9.0-12.0) H 12/11/17 04:54 INR 1.5 (<1.2) H 12/11/17 04:54 Abnormal lab findings: Abnormal Labs 12/09/17 12/09/17 12/09/17 21:16 21:16 21:16 RBC 3.61 L Hgb 9.5 L Hct 29.9 L MCHC RDW 19.8 H Lymphocytes # 0.6 L PT INR VBG pH 7.47 H VBG pCO2 26 L VBG HCO3 19 L Sodium 132 L Carbon Dioxide 20 L BUN 22 H Glucose 167 H POC Glucose (mg/dL) Calcium Alkaline Phosphatase 197 H Troponin I Total Protein 5.2 L Albumin 2.6 L Urine Protein Urine Blood Urine Bilirubin Urine WBC Amorphous Sediment Hyaline Casts Urine Mucus Ur Barbiturates Screen 12/09/17 12/09/17 12/09/17 21:16 21:16 22:47 RBC Hgb Hct MCHC RDW Lymphocytes # PT 13.2 H INR 1.4 H VBG pH VBG pCO2 VBG HCO3 Sodium Carbon Dioxide BUN Glucose POC Glucose (mg/dL) Calcium Alkaline Phosphatase Troponin I 0.234 H* Total Protein Albumin Urine Protein 2+ H Urine Blood Small H Urine Bilirubin Urine WBC Amorphous Sediment Hyaline Casts Urine Mucus Rare H Ur Barbiturates Screen 12/09/17 12/10/17 12/10/17 22:47 07:51 11:25 RBC Hgb Hct MCHC RDW Lymphocytes # PT INR VBG pH VBG pCO2 VBG HCO3 Sodium Carbon Dioxide BUN Glucose POC Glucose (mg/dL) 186 H 192 H Calcium Alkaline Phosphatase Troponin I Total Protein Albumin Urine Protein Urine Blood Urine Bilirubin Urine WBC Amorphous Sediment Hyaline Casts Urine Mucus Ur Barbiturates Screen Detected H 12/10/17 12/10/17 12/11/17 16:58 21:19 03:24 RBC Hgb Hct MCHC RDW Lymphocytes # PT INR VBG pH VBG pCO2 VBG HCO3 Sodium Carbon Dioxide BUN Glucose POC Glucose (mg/dL) 146 H 128 H 157 H Calcium Alkaline Phosphatase Troponin I Total Protein Albumin Urine Protein Urine Blood Urine Bilirubin Urine WBC Amorphous Sediment Hyaline Casts Urine Mucus Ur Barbiturates Screen 12/11/17 12/11/17 12/11/17 04:54 04:54 04:54 RBC 3.29 L Hgb 8.5 L Hct 27.6 L MCHC 30.7 L RDW 19.6 H Lymphocytes # 0.8 L PT 13.8 H INR 1.5 H VBG pH VBG pCO2 VBG HCO3 Sodium 130 L Carbon Dioxide 21 L BUN 27 H Glucose 140 H POC Glucose (mg/dL) Calcium 7.8 L Alkaline Phosphatase Troponin I Total Protein Albumin Urine Protein Urine Blood Urine Bilirubin Urine WBC Amorphous Sediment Hyaline Casts Urine Mucus Ur Barbiturates Screen 12/11/17 12/11/17 12/11/17 04:55 05:20 12:31 RBC Hgb Hct MCHC RDW Lymphocytes # PT INR VBG pH VBG pCO2 VBG HCO3 Sodium Carbon Dioxide BUN Glucose POC Glucose (mg/dL) 169 H 170 H Calcium Alkaline Phosphatase Troponin I Total Protein Albumin Urine Protein 1+ H Urine Blood Urine Bilirubin 1+ H Urine WBC 7 H Amorphous Sediment Rare H Hyaline Casts 22 H Urine Mucus Occasional H Ur Barbiturates Screen - Diagnostic Findings Chest x-ray: image reviewed (Chest x-ray is strongly suggestive of pulmonary edema, underlying pneumonia is not entirely ruled out, felt to be less likely.) Assessment and Plan Assessment: Impression: 1 acute systolic congestive heart failure and hypoxic respiratory failure secondary to CHF. 2 underlying pneumonia is not entirely ruled out, but felt to be less likely patient is on empiric antibiotics including vancomycin and aztreonam, suggested by infectious disease on the case. 3 severe ischemic cardiomyopathy and LV dysfunction with previous AICD placement. 4 left lower extremity abscess and bacteremia treated recently with daptomycin, presently on vancomycin and aztreonam. 5 acute episode of hypotension secondary to profound LV dysfunction and diuretics. Possible some component of hypovolemia, strongly doubt sepsis causing his hypotension. Recommendation: Continue present supportive care measures, continue diuretics, cautiously, continue antibiotics, pressors if needed, but at this point he doesn 't need any pressors, continue close monitoring on a monitor bed on selective. We'll continue to follow. Time with Patient: Greater than 30
[2017-12-11] MEDS: FUROSEMIDE 10 MG/ML 4 ML VIAL IV SCH ×2 (16:38→23:48)
[2017-12-11 17:52] LABS: Glucose,Whole Blood 179 mg/dL (75-99)
[2017-12-11] MEDS: ONDANSETRON 4 MG/2 ML VIAL IVP PRN (18:38)
[2017-12-11 19:58] LABS: Folate, Serum 8.1 ng/mL; Iron Saturation 4.17 (15.00-50.00)
[2017-12-11] MEDS ORDERED: METOCLOPRAMIDE 5 MG/ML 2 ML VIAL IVP PRN (21:02)
[2017-12-11] MEDS ORDERED: ONDANSETRON 4 MG/2 ML VIAL IVP STA (21:03)
[2017-12-11 21:11] LABS: Glucose,Whole Blood 174 mg/dL (75-99)
[2017-12-11] MEDS: INSULIN DETEMIR 100 UNIT/ML 10 ML VIAL SQ SCH (21:20)
[2017-12-11] MEDS: NON-FORMULARY DRUG (Rosuvastatin Calcium [Crestor] 40 MG) PO SCH (21:42)
[2017-12-11] MEDS: CLOPIDOGREL 75 MG TAB PO SCH (21:56)
[2017-12-11] MEDS: FAMOTIDINE 20 MG TAB PO SCH (21:56)
--- NOTE | 2017-12-11 23:34 | P.PN ---
Subjective Progress Note Date: 12/11/17 41-year-old male presented to hospital with chest pain and progressive shortness of breath poor exercise tolerance generalized malaise and symptoms with nausea, some dry heaves. He does relate that he had a minimal cough with some aching much sputum production was feeling progressively worse. At the present to the emergency center and was admitted for treatment of underlying coronary artery disease. The patient has a extensive past medical history with coronary artery disease, LA stroke diabetes hypertension and cardiac dysrhythmia. Apparently 2 years ago patient suffered from Myocardial infarction at that point time requiring AICD replaced. Recently hospitalized at outside facility and there he had evidence of difficulties with abscess to his left leg from the data that we have so far the patient was bacteremic and is now being treated with daptomycin and high-dose with overall goal for salvage of his AICD. The patient presented to this facility with chest pain and shortness of breath and cough, is feeling somewhat more poorly and infectious disease consult was requested regarding his antibiotic therapy. The patient does feel poorly and the nursing staff relates that he is not feeling as well today as he was even a day ago. 12/11/2017 patient was moved to ICU due to chest pain and now feeling slightly better but has developed nausea and emesis, but not hypotension. Objective - Vital Signs Vital signs: Vital Signs Temp 99.6 F 12/11/17 16:00 Pulse 101 H 12/11/17 23:00 Resp 24 12/11/17 23:00 BP 101/76 12/11/17 23:00 Pulse Ox 96 12/11/17 23:00 Intake & Output 12/11/17 12/11/17 12/12/17 06:59 18:59 06:59 Intake Total 560 694 Output Total 60 535 Balance 500 159 Weight 109.4 kg Intake: IV 80 694 Sodium Chloride 0.9% 1, 80 260 000 ml @ 20 mls/hr IV . Q24H [facility] Rx#:[id number] azactam 100 vancomycin 334 Oral 480 Output: Urine 60 535 Other: Voiding Method Urinal Indwelling Catheter Indwelling Catheter - Exam 41-year-old male who appears considerably older than his stated age. Patient is not diaphoretic and is not in acute distress but does state he feels poorly HEENT: Anicteric conjunctiva are pink and moist nasal mucosa grossly intact without significant lesions, there is no thrush. Neck: The neck is supple without significant lymphadenopathy or thyromegaly. Lungs: Symmetrical air entry is noted, pacer crackles are heard expiratory wheezes are scattered no acute bronchial sounds no dullness or egophony Heart: Regular without audible S1 and S2 no S3 soft S4 no murmur click or rub Abdomen: Obese, Positive bowel sounds soft and nontender without palpable masses or organomegaly. There was no guarding or rebound. Extremities: Upper extremities intact IV sites intact. PICC line left arm without tenderness erythema crepitus or fluctuance. Lower extremities have some trace edema. The abscess on the left calf area is without expressible purulence minimal erythema evidence of granulation no ascending erythema no fluctuance or necrosis Neuro: Awake alert oriented to person place and time. There are no acute new gross focal sensory motor deficits. - Labs CBC & Chem 7: 12/11/17 04:54 12/11/17 04:54 Labs: Abnormal Lab Results - Last 24 Hours (Table) 12/11/17 12/11/17 12/11/17 Range/Units 03:24 04:54 04:54 RBC 3.29 L (4.30-5.90) m/uL Hgb 8.5 L (13.0-17.5) gm/dL Hct 27.6 L (39.0-53.0) % MCHC 30.7 L (31.0-37.0) g/dL RDW 19.6 H (11.5-15.5) % Lymphocytes # 0.8 L (1.0-4.8) k/uL PT (9.0-12.0) sec INR (<1.2) Sodium 130 L (137-145) mmol/L Carbon Dioxide 21 L (22-30) mmol/L BUN 27 H (9-20) mg/dL Glucose 140 H (74-99) mg/dL POC Glucose (mg/dL) 157 H (75-99) mg/dL Calcium 7.8 L (8.4-10.2) mg/dL Urine Protein (Negative) Urine Bilirubin (Negative) Urine WBC (0-5) /hpf Amorphous Sediment (None) /hpf Hyaline Casts (0-2) /lpf Urine Mucus (None) /hpf 12/11/17 12/11/17 12/11/17 Range/Units 04:54 04:55 05:20 RBC (4.30-5.90) m/uL Hgb (13.0-17.5) gm/dL Hct (39.0-53.0) % MCHC (31.0-37.0) g/dL RDW (11.5-15.5) % Lymphocytes # (1.0-4.8) k/uL PT 13.8 H (9.0-12.0) sec INR 1.5 H (<1.2) Sodium (137-145) mmol/L Carbon Dioxide (22-30) mmol/L BUN (9-20) mg/dL Glucose (74-99) mg/dL POC Glucose (mg/dL) 169 H (75-99) mg/dL Calcium (8.4-10.2) mg/dL Urine Protein 1+ H (Negative) Urine Bilirubin 1+ H (Negative) Urine WBC 7 H (0-5) /hpf Amorphous Sediment Rare H (None) /hpf Hyaline Casts 22 H (0-2) /lpf Urine Mucus Occasional H (None) /hpf 12/11/17 12/11/17 12/11/17 Range/Units 12:31 17:29 21:10 RBC (4.30-5.90) m/uL Hgb (13.0-17.5) gm/dL Hct (39.0-53.0) % MCHC (31.0-37.0) g/dL RDW (11.5-15.5) % Lymphocytes # (1.0-4.8) k/uL PT (9.0-12.0) sec INR (<1.2) Sodium (137-145) mmol/L Carbon Dioxide (22-30) mmol/L BUN (9-20) mg/dL Glucose (74-99) mg/dL POC Glucose (mg/dL) 170 H 179 H 174 H (75-99) mg/dL Calcium (8.4-10.2) mg/dL Urine Protein (Negative) Urine Bilirubin (Negative) Urine WBC (0-5) /hpf Amorphous Sediment (None) /hpf Hyaline Casts (0-2) /lpf Urine Mucus (None) /hpf Microbiology - Last 24 Hours (Table) 12/10/17 11:38 Blood Culture - Preliminary Blood No Growth after 24 hours 12/11/17 05:20 Urine Culture - Preliminary Urine,Catheterized 12/09/17 22:47 Urine Culture - Final Urine,Voided Laboratory Results WBC 5.0 k/uL (3.8-10.6) 12/11/17 04:54 RBC 3.29 m/uL (4.30-5.90) L 12/11/17 04:54 Hgb 8.5 gm/dL (13.0-17.5) L 12/11/17 04:54 Hct 27.6 % (39.0-53.0) L 12/11/17 04:54 MCV 83.9 fL (80.0-100.0) 12/11/17 04:54 MCH 25.8 pg (25.0-35.0) 12/11/17 04:54 MCHC 30.7 g/dL (31.0-37.0) L 12/11/17 04:54 RDW 19.6 % (11.5-15.5) H 12/11/17 04:54 Plt Count 254 k/uL (150-450) 12/11/17 04:54 Neutrophils % 71 % 12/11/17 04:54 Lymphocytes % 15 % 12/11/17 04:54 Monocytes % 5 % 12/11/17 04:54 Eosinophils % 7 % 12/11/17 04:54 Basophils % 1 % 12/11/17 04:54 Neutrophils # 3.6 k/uL (1.3-7.7) 12/11/17 04:54 Lymphocytes # 0.8 k/uL (1.0-4.8) L 12/11/17 04:54 Monocytes # 0.2 k/uL (0-1.0) 12/11/17 04:54 Eosinophils # 0.4 k/uL (0-0.7) 12/11/17 04:54 Basophils # 0.0 k/uL (0-0.2) 12/11/17 04:54 Hypochromasia Marked 12/11/17 04:54 Poikilocytosis Slight 12/11/17 04:54 Anisocytosis Slight 12/11/17 04:54 Microcytosis Slight 12/09/17 21:16 PT 13.8 sec (9.0-12.0) H 12/11/17 04:54 INR 1.5 (<1.2) H 12/11/17 04:54 VBG pH 7.47 (7.31-7.41) H 12/09/17 21:16 VBG pCO2 26 mmHg (37-51) L 12/09/17 21:16 VBG HCO3 19 mmol/L (24-28) L 12/09/17 21:16 Sodium 130 mmol/L (137-145) L 12/11/17 04:54 Potassium 4.1 mmol/L (3.5-5.1) 12/11/17 04:54 Chloride 99 mmol/L (98-107) 12/11/17 04:54 Carbon Dioxide 21 mmol/L (22-30) L 12/11/17 04:54 Anion Gap 10 mmol/L 12/11/17 04:54 BUN 27 mg/dL (9-20) H 12/11/17 04:54 Creatinine 1.10 mg/dL (0.66-1.25) 12/11/17 04:54 Est GFR (CKD-EPI)AfAm >90 (>60 ml/min/1.73 sqM) 12/11/17 04:54 Est GFR (CKD-EPI)NonAf 83 (>60 ml/min/1.73 sqM) 12/11/17 04:54 Glucose 140 mg/dL (74-99) H 12/11/17 04:54 POC Glucose (mg/dL) 174 mg/dL (75-99) H 12/11/17 21:10 POC Glu Quarrying Specialist ID Arabella Haley 12/11/17 21:10 Plasma Lactic Acid Timbo 1.6 mmol/L (0.7-2.0) 12/10/17 20:22 Calcium 7.8 mg/dL (8.4-10.2) L 12/11/17 04:54 Magnesium 1.7 mg/dL (1.6-2.3) 12/11/17 04:54 Total Bilirubin 1.0 mg/dL (0.2-1.3) 12/09/17 21:16 AST 25 U/L (17-59) 12/09/17 21:16 ALT 45 U/L (21-72) 12/09/17 21:16 Alkaline Phosphatase 197 U/L (38-126) H 12/09/17 21:16 Troponin I 0.234 ng/mL (0.000-0.034) H* 12/09/17 21:16 NT-Pro-B Natriuret Pep 51742 pg/mL 12/09/17 21:16 Total Protein 5.2 g/dL (6.3-8.2) L 12/09/17 21:16 Albumin 2.6 g/dL (3.5-5.0) L 12/09/17 21:16 Lipase 181 U/L (23-300) 12/09/17 21:16 Urine Color Yellow 12/11/17 05:20 Urine Appearance Cloudy (Clear) 12/11/17 05:20 Urine pH 5.5 (5.0-8.0) 12/11/17 05:20 Ur Specific [place] 1.017 (1.001-1.035) 12/11/17 05:20 Urine Protein 1+ (Negative) H 12/11/17 05:20 Urine Glucose (UA) Negative (Negative) 12/11/17 05:20 Urine Ketones Negative (Negative) 12/11/17 05:20 Urine Blood Negative (Negative) 12/11/17 05:20 Urine Nitrite Negative (Negative) 12/11/17 05:20 Urine Bilirubin 1+ (Negative) H 12/11/17 05:20 Urine Urobilinogen 8.0 mg/dL (<2.0) 12/11/17 05:20 Ur Leukocyte Esterase Negative (Negative) 12/11/17 05:20 Urine RBC <1 /hpf (0-5) 12/11/17 05:20 Urine WBC 7 /hpf (0-5) H 12/11/17 05:20 Amorphous Sediment Rare /hpf (None) H 12/11/17 05:20 Hyaline Casts 22 /lpf (0-2) H 12/11/17 05:20 Urine Mucus Occasional /hpf (None) H 12/11/17 05:20 Urine Opiates Screen Not Detected (NotDetected) 12/09/17 22:47 Ur Oxycodone Screen Not Detected (NotDetected) 12/09/17 22:47 Urine Methadone Screen Not Detected (NotDetected) 12/09/17 22:47 Ur Propoxyphene Screen Not Detected (NotDetected) 12/09/17 22:47 Ur Barbiturates Screen Detected (NotDetected) H 12/09/17 22:47 U Tricyclic Antidepress Not Detected (NotDetected) 12/09/17 22:47 Ur Phencyclidine Scrn Not Detected (NotDetected) 12/09/17 22:47 Ur Amphetamines Screen Not Detected (NotDetected) 12/09/17 22:47 U Methamphetamines Scrn Not Detected (NotDetected) 12/09/17 22:47 U Benzodiazepines Scrn Not Detected (NotDetected) 12/09/17 22:47 Urine Cocaine Screen Not Detected (NotDetected) 12/09/17 22:47 U Marijuana (THC) Screen Not Detected (NotDetected) 12/09/17 22:47 Serum Alcohol <10 mg/dL 12/09/17 21:16 Microbiology 12/10/17 11:38 Blood Blood Culture - Preliminary No Growth after 24 hours 12/11/17 05:20 Urine,Catheterized Urine Culture - Preliminary 12/09/17 22:47 Urine,Voided Urine Culture - Final Assessment and Plan (1) AICD (automatic cardioverter/defibrillator) present Current Visit: No Status: Acute Code(s): Z95.810 - PRESENCE OF AUTOMATIC ( IMPLANTABLE) CARDIAC DEFIBRILLATOR SNOMED Code(s): 808561409 (2) Cardiomyopathy Current Visit: No Status: Acute Code(s): I42.9 - CARDIOMYOPATHY, UNSPECIFIED SNOMED Code(s): 21705464 (3) Bacteremia Narrative/Plan: 41-year-old male that has an extensive past medical history of cardiovascular disease. Has an AICD placed a few years ago was recently hospitalized an outside hospital, there there was concerns to bacteremia likely from the abscess to the left leg. It appears to goal with salvage of the AICD he was placed on high-dose daptomycin. The patient are developed some chest pain increasing shortness of breath some cough generalized malaise and nausea and presented to our facility. With a significant cardiac history concerns to further cardiac disease and has been admitted. X-rays are mildly abnormal potential for pneumonia also exists. Daptomycin is not routinely used for pneumonia, may be effective for those that have endocarditis and pulmonary infiltrates, but for other pneumonias is not highly effective and consequently we'll alter to vancomycin at this time. Given the level illness will also adding gram-negative coverage with this many ALLERGIES Azactam will be added. Cultures are processing he will be followed. Outside data he has been requested patient to sign release of information to evaluate outside cultures and to evaluate the infectious diseases consultations to assist with the overall plan especially discharge planning. The patient is acutely ill and there is concerns for his deterioration. 12/11/2017 the patient did worsen overnight became more short of breath and even developed some nausea and has had some emesis today. I have a high-grade fever. But does feel quite poorly. With his nausea some Zofran is requested and does give him some relief. Continue antibiotic therapy this time with vancomycin and Azactam with concerns for potential pneumonia for which the daptomycin would not treat. Await cultures to ensure that we do not need to continue with gram-negative therapy. The patient does have a significant ischemic cardiac myopathy and AICD is in place. We are awaiting the records from [facility] to determine the pathogen, and course of therapy that was directed at that stay. Cultures for further help direct his therapy. Current Visit: Yes Status: Acute Code(s): R78.81 - BACTEREMIA SNOMED Code( s): 3025116
[2017-12-11] MEDS: SODIUM CHLORIDE 0.9% 1,000 ML IV SCH (23:47)
[2017-12-12 05:40] LABS: Anisocytosis Slight; Basophils % (A) 0 %; Eosinophils # (A) 0.6 k/uL (0-0.7); Eosinophils % (A) 9 %; HCT 27.8 % (39.0-53.0); HGB 8.7 gm/dL (13.0-17.5); Hypochromasia Marked; Lymphocytes # (A) 0.7 k/uL (1.0-4.8); Lymphocytes % (A) 11 %; MCHC 31.4 g/dL (31.0-37.0); Microcytosis Slight; Monocytes # (A) 0.3 k/uL (0-1.0); Monocytes % (A) 4 %; Neutrophils # (A) 5.3 k/uL (1.3-7.7); Neutrophils % (A) 75 %; Platelet Count 301 k/uL (150-450); Poikilocytosis Slight; RBC 3.35 m/uL (4.30-5.90); RDW 19.5 % (11.5-15.5)
[2017-12-12 05:50] LABS: INR 1.3 (<1.2); Prothrombin Time 12.4 sec (9.0-12.0)
[2017-12-12 05:51] LABS: Anion Gap 9 mmol/L; Calcium 7.7 mg/dL (8.4-10.2); Carbon Dioxide 19 mmol/L (22-30); Chloride 102 mmol/L (98-107); Glucose 67 mg/dL (74-99); Sodium 130 mmol/L (137-145)
[2017-12-12 05:57] LABS: Phosphorus 3.7 mg/dL (2.5-4.5); Potassium 4.7 mmol/L (3.5-5.1)
[2017-12-12 05:58] LABS: Blood Urea Nitrogen 31 mg/dL (9-20)
[2017-12-12 06:49] LABS: Glucose,Whole Blood 74 mg/dL (75-99)
[2017-12-12] MEDS: INSULIN ASPART 100 UNIT/ML 1 ML 10 ML VIAL SQ SCH ×6 (06:49→21:44)
[2017-12-12] MEDS ORDERED: FAMOTIDINE 20 MG/2 ML VIAL IV STA (07:11)
[2017-12-12] MEDS ORDERED: methylPREDNISolone SOD SUCCI 125 MG/2 ML VIAL IV STA (07:11)
[2017-12-12] MEDS ORDERED: diphenhydrAMINE 50 MG/ML 1 ML VIAL IVP STA (07:11)
--- NOTE | 2017-12-12 07:23 | XR ---
EXAMINATION TYPE: XR chest 1V portable DATE OF EXAM: 12/12/2017 HISTORY: CHF. REFERENCE: Previous study dated 12/11/2017. FINDINGS: There is a bipolar pacing device present on the left. There is alveolar and interstitial airspace disease bilaterally. The heart is mildly enlarged. I marietta ot exclude small effusions. IMPRESSION: CONTINUING CHANGES OF CONGESTIVE HEART FAILURE.
--- NOTE | 2017-12-12 07:29 | CT ---
EXAMINATION TYPE: CT brain wo con DATE OF EXAM: 12/12/2017 COMPARISON: Previous study dated 03/11/2017 HISTORY: Rt facial droop CT DLP: 1020.6 mGycm Automated exposure control for dose reduction was used. FINDINGS: There are mild, generalized changes of sulcal prominence and ventriculomegaly, compatible with mild a trophy. There is diffuse periventricular white matter lucency, compatible with mild, chronic ischemic change. There is no acute focal lesion, mass effect or midline shift identified. I do not see eviden ce of intracranial blood. There is some vascular calcification. The orbits appear normal. There is mild mucoperiosteal thickening involving the right maxillary sinus. There is underaeration o f the right mastoid air cells. The bony calvarium is intact. IMPRESSION: 1. NO ACUTE INTRACRANIAL ABNORMALITY. 2. MILD DEGENERATIVE CHANGE. 3. MILD, CHRONIC RIGHT MAXILLARY SINUS MUCOSAL DISEASE. 4. UNDERAERATION OF THE RIGHT-SIDED MASTOID MAY REFLECT CHRONIC RIGHT-SIDED MASTOIDITIS.
--- NOTE | 2017-12-12 08:24 | CT ---
EXAMINATION TYPE: CODE STROKE: CTA head neck DATE OF EXAM: 12/12/2017 HISTORY: Rt facial droop COMPARISON: Unenhanced CT scan of the brain dated earlier today. CT DLP: 504.3 mGycm. Automated Exposure Control for Dose Reduction was Utilized. TECHNIQUE: CTA scan of the neck is performed with IV Contrast, patient injected with 65 mL of Isovue 370, axial images are obtained, coronal and sagittal reformatted images are reviewed. Three-D recons tructed images are created on an independent workstation and reviewed. FINDINGS: There are bilateral areas of consolidation in both lungs. This has a groundglass appearance . Soft tissues of the neck are unremarkable. There is a normal origin of the great vessels. There is minimal calcification at the carotid bulbs bi laterally. There is no significant carotid stenosis. Both external carotids are patent. The vertebral arteries are codominant. The [place] of Patel appears normal. There is normal arborization of the middle cerebral arteries mikayla aterally. Both anterior cerebral arteries are patent. The basilar tip is unremarkable. IMPRESSION: 1. PATCHY GROUNDGLASS OPACITIES IN BOTH LUNGS MAY REFLECT PNEUMONIA. 2. NO SIGNIFICANT STENOSIS IN EITHER CAROTID SYSTEM. 3. NORMAL CTA OF THE [place] OF PATEL.
[2017-12-12] MEDS: ASPIRIN 325 MG TAB PO SCH (08:42)
[2017-12-12] MEDS: MIDODRINE 5 MG TAB PO SCH ×3 (08:42→17:32)
[2017-12-12] MEDS: VANCOMYCIN 1,750 MG in SODIUM CHLORIDE 0.9% 500 ML IVPB SCH ×2 (08:42→18:49)
[2017-12-12] MEDS: FAMOTIDINE 20 MG TAB PO SCH ×2 (08:43→21:48)
[2017-12-12] MEDS: HEPARIN SODIUM,PORCINE 5,000 UNIT/ML 1 ML VIAL SQ SCH ×2 (08:43→21:47)
[2017-12-12] MEDS: AZTREONAM 2 GM in SODIUM CHLORIDE 0.9% 100 ML IVPB SCH ×3 (08:48→23:31)
[2017-12-12] MEDS: FUROSEMIDE 10 MG/ML 4 ML VIAL IV SCH ×3 (08:48→23:31)
[2017-12-12] MEDS: METOPROLOL SUCCINATE (ER) 25 MG TAB.ER.24H PO SCH (11:04)
[2017-12-12 11:41] LABS: Glucose,Whole Blood 124 mg/dL (75-99)
--- NOTE | 2017-12-12 15:18 | P.PN ---
Subjective Progress Note Date: 12/12/17 Principal diagnosis: Acute hypoxic respiratory failure secondary to acute systolic congestive heart failure This is a 41-year-old white male with history of cardiomyopathy, ischemic in nature, related to previous VT about 2 years ago. Patient required AICD placement, and he was recently at [facility] for issues related to his defibrillator, and apparently had a left leg abscess with bacteremia requiring high doses of daptomycin. Patient was admitted yesterday with mostly symptoms of shortness of breath, cough, and some vague chest pain and discomfort. Chest x-ray on admission showed interstitial edema, however based on the chest x-ray it is difficult to rule out underlying pneumonia. Patient was admitted, placed on diuretics, antibiotics, and he was seen by infectious disease on consultation. Last night, patient developed low blood pressure, and he was transferred to the ICU for possible starting the patient on norepinephrine. However he was given 1 bolus of 500 mL of 0.9 normal saline, and by the time he was transferred to the ICU, his blood pressure stabilizes. Did not require any pressors. Presently remains in the intensive care unit, and we plan to transfer him back to monitor bed on selective. Since admission the patient was seen by many consultants including infectious disease, and he was placed on vancomycin. He was also seen by nephrology for acute kidney injury and hyponatremia. Antibiotics frankel patient is now on vancomycin and aztreonam. Looking back at his chart, patient is known to have history of systolic congestive heart failure with ejection fraction of 20%. And his baseline creatinine is usually normal. During my evaluation, patient denied any headache , no blurred vision, no dizziness, some shortness of breath, no cough, no wheezing, no chest pain. No palpitations no nausea no vomiting no abdominal pain no melena no hematemesis no dysuria and no frequency no urgency. Continues to have a superficial ulceration on the anterior aspect of the right lower extremity just below the knee. Patient was reevaluated today on 12/12/2017, remains in the intensive care unit, continues to have some interstitial edema based on the chest x-ray findings, shortness of breath is slightly improved, patient had some neurological symptoms suggestive of TIA last night, underwent CT of the brain and CT angiography, he was noted to have normal CTA of the [place] of Patel. Patchy groundglass opacities in both lungs reflecting mostly congestive heart failure, doubt pneumonia. CBC is relatively normal except for hemoglobin of 8.7, no evidence of leukocytosis. Basic metabolic profile is relatively normal except for a low sodium of 130 and bicarb of 19. Renal profile showed a prerenal picture. BUN is 30 creatinine is 0.8 today the patient's neurological symptoms have resolved, they were mostly some right-sided weakness and numbness. Objective - Vital Signs Vital signs: Vital Signs Temp 97.8 F 12/12/17 12:00 Pulse 84 12/12/17 15:00 Resp 21 12/12/17 15:00 BP 95/67 12/12/17 15:00 Pulse Ox 99 12/12/17 15:00 Intake & Output 12/11/17 12/12/17 12/12/17 18:59 06:59 18:59 Intake Total 664 074 9547 Output Total 535 1155 1255 Balance 159 -255 -134 Weight 109.4 kg 108.2 kg Intake: IV 694 840 721 Aztreonam 2 gm In Sodium 100 100 Chloride 0.9% 100 ml @ 100 mls/hr IVPB Q8HR [facility] Rx#:[id number] Sodium Chloride 0.9% 1, 260 240 120 000 ml @ 20 mls/hr IV . Q24H [facility] Rx#:[id number] Vancomycin 1,750 mg In 500 501 Sodium Chloride 0.9% 500 ml @ 167 mls/hr IVPB Q12H [facility] Rx#:[id number] azactam 100 vancomycin 334 Oral 60 400 Output: Urine 535 1155 1255 Other: Voiding Method Indwelling Catheter Indwelling Catheter Indwelling Catheter - Exam Physical Exam revealed a 41-year-old white male, in no form of respiratory distress, on nasal cannula. Head: Atraumatic, normocephalic. HEENT:[Neck is supple.] [No neck masses.] [No thyromegaly.] [No JVD.] PERRLA, EOMI, no icterus, throat is clear, no oral thrush. Chest: [Symmetrical expansion, crackles at the bases bilaterally, some rhonchi on forced expiratory maneuver noted bilaterally. No chest wall tenderness..] Cardiac Exam: [Distant S1 and S2, no S3 gallop, no murmur.] Abdomen: [Obese, Soft, nontender, no megaly, no rebound, no guarding, normal bowel sounds.] Extremities: [No clubbing, trace of bipedal edema, no cyanosis.] Evidence of ulceration noted at the left calf region just below the left knee with minimal purulent drainage and minimal erythema surrounding the ulceration. Neurological Exam: [No focal neurologic deficit. Psychiatric: Normal mood, affect, and mental status examination. ] Lymphatics: No lymphadenopathy. - Labs CBC & Chem 7: 12/12/17 05:30 12/12/17 05:30 Labs: Abnormal Lab Results - Last 24 Hours (Table) 12/11/17 12/11/17 12/12/17 Range/Units 17:29 21:10 05:30 RBC 3.35 L (4.30-5.90) m/uL Hgb 8.7 L (13.0-17.5) gm/dL Hct 27.8 L (39.0-53.0) % RDW 19.5 H (11.5-15.5) % Lymphocytes # 0.7 L (1.0-4.8) k/uL PT (9.0-12.0) sec INR (<1.2) Sodium (137-145) mmol/L Carbon Dioxide (22-30) mmol/L BUN (9-20) mg/dL Glucose (74-99) mg/dL POC Glucose (mg/dL) 179 H 174 H (75-99) mg/dL Calcium (8.4-10.2) mg/dL Troponin I (0.000-0.034) ng/mL 12/12/17 12/12/17 12/12/17 Range/Units 05:30 05:30 05:30 RBC (4.30-5.90) m/uL Hgb (13.0-17.5) gm/dL Hct (39.0-53.0) % RDW (11.5-15.5) % Lymphocytes # (1.0-4.8) k/uL PT 12.4 H (9.0-12.0) sec INR 1.3 H (<1.2) Sodium 130 L (137-145) mmol/L Carbon Dioxide 19 L (22-30) mmol/L BUN 31 H (9-20) mg/dL Glucose 67 L (74-99) mg/dL POC Glucose (mg/dL) (75-99) mg/dL Calcium 7.7 L (8.4-10.2) mg/dL Troponin I 0.188 H* (0.000-0.034) ng/mL 12/12/17 12/12/17 Range/Units 06:46 11:40 RBC (4.30-5.90) m/uL Hgb (13.0-17.5) gm/dL Hct (39.0-53.0) % RDW (11.5-15.5) % Lymphocytes # (1.0-4.8) k/uL PT (9.0-12.0) sec INR (<1.2) Sodium (137-145) mmol/L Carbon Dioxide (22-30) mmol/L BUN (9-20) mg/dL Glucose (74-99) mg/dL POC Glucose (mg/dL) 74 L 124 H (75-99) mg/dL Calcium (8.4-10.2) mg/dL Troponin I (0.000-0.034) ng/mL Microbiology - Last 24 Hours (Table) 12/10/17 11:38 Blood Culture - Preliminary Blood No Growth after 48 hours 12/11/17 05:20 Urine Culture - Final Urine,Catheterized Assessment and Plan Assessment: Impression: 1 acute systolic congestive heart failure and hypoxic respiratory failure secondary to CHF. 2 underlying pneumonia is not entirely ruled out, but felt to be less likely patient is on empiric antibiotics including vancomycin and aztreonam, suggested by infectious disease on the case. Mostly because of his recent bacteremia and used to be a daptomycin 3 severe ischemic cardiomyopathy and LV dysfunction with previous AICD placement. 4 left lower extremity abscess and bacteremia treated recently with daptomycin, presently on vancomycin and aztreonam. 5 acute episode of hypotension secondary to profound LV dysfunction and diuretics. Possible some component of hypovolemia, strongly doubt sepsis causing his hypotension. Recommendation: Continue present supportive care measures, continue diuretics, cautiously, continue antibiotics, consider transferring the patient out of the ICU to a monitor bed on selective we'll continue to follow Time with Patient: Less than 30
--- NOTE | 2017-12-12 16:48 | PN ---
PROGRESS NOTE Patient is seen for followup for acute kidney injury. Renal function is improved. Serum creatinine is 0.8 mg/dL. It was at 1.1. The patient does have underlying CHF with ejection fraction 20-25%. Maintained on IV antibiotics for possible concerns for infection associated with the AICD. Lasix is at 40 mg IV q.8 hours. PHYSICAL EXAMINATION: Blood pressure is 95/67, heart rate 84 per minute. Patient is afebrile. Examination of the heart S1, S2. Examination of the lungs bilateral breath sounds are heard. Abdomen is soft, nontender. Examination lower extremities: Ulceration on the left leg with below the knee, currently with drainage and the ulcer is covered with dressing. BAGGAGE INSPECTOR exam is grossly intact. LABS SHOW: Sodium 138, potassium 4.7, BUN 31, serum creatinine 0.8 mg/dL. ASSESSMENT: 1. Acute kidney injury, currently nonoliguric and improved. Creatinine is down to 0.8 mg/dL. The etiology was hypotension hypoperfusion. 2. Coronary artery disease, systolic heart failure, acute on top of chronic, ejection fraction 20-25%. 3. Volume overload maintained on IV Lasix. 4. Left leg abscess, currently on IV antibiotics. 5. Hypervolemic, hyponatremia. Expect improvement with improved volume status. PLAN: Continue with current dose of Lasix and continue with the midodrine for hypotension. Cortisone level was not low. Monitor vancomycin levels very carefully and repeat labs in a.m. MMAMBROSEL / CHRISTINEN: [id number] /
--- NOTE | 2017-12-12 17:21 | CONS ---
CONSULTATION HISTORY: Mr. Dunham is a 41-year-old male with multiple admission to the hospital, history of coronary disease, ischemic cardiomyopathy, ICD implantation who has underwent an intervention at [facility] recently, who presented with symptoms of nausea, vomiting, and dry heaves. He was admitted to the hospital and episode of hypotension and transferred to the ICU. He has no chest pain. He has chronic dyspnea on exertion. He has some peripheral edema. No dizziness or palpitations. He has an abscess on his left leg and has been treated in that regard. The detail of his intervention done at [facility] is not clear to me, but according to the patient, he received 2 stents at that time. He has been followed by Dr. Platt in regard to the infectious process. His coronary risk factors are negative for smoking. He is diabetic, hyperlipidemic and hypertensive. MEDICATIONS: Include aspirin, Plavix 75 mg daily, daptomycin, Lasix 40 mg daily, gabapentin, insulin, Zestril 5 mg daily, metoprolol succinate 25 mg daily, ranitidine, and Zoloft. REVIEW OF SYSTEMS: RESPIRATORY SYSTEM: He has no recent wheezing. No cough. GI SYSTEM: No recent GI bleeding. He had nausea and vomiting. SYSTEM: No dysuria or hematuria. PHYSICAL EXAMINATION: He is a 41-year-old male, alert, no apparent distress. Blood pressure running in the high 90s to low 100s. Heart rate in the 80s. Afebrile. HEAD: Normocephalic. EYES: Sclerae anicteric. NECK: No bruit. LUNGS: Clear to auscultation. HEART: Regular rate and rhythm, S1, S2. No S3 with systolic murmur at the base. No diastolic murmur. ABDOMEN: Soft, nontender. Positive bowel sounds. No organomegaly. EXTREMITIES: Ulceration noted on the left calf with no significant edema. LAB DATA: His EKG revealed a sinus mechanism with evidence of pacemaker activities. His hemoglobin is 8.7. INR 1.3. BUN and creatinine 31 and 0.8. Troponin of 0.188, which is lower than what he had in the past. IMPRESSION: 1. Hypotensive episode improved, could be a combination of his cardiac status. Possibility of infectious process cannot be excluded. 2. History of coronary artery disease with multiple percutaneous revascularization. 3. History of ischemic cardiomyopathy and ICD implantation. 4. Left lower extremity abscess with bacteremia, being followed by infectious disease service. RECOMMENDATION: From the cardiac standpoint, we will continue current therapy, follow his blood pressure and depending on that, further recommendation will be made. We will try to obtain the reports of his workup that was done at [facility]. Thank you for this consult. We will follow with you. BEATRIZ / CHRISTINEN: [id number] /
[2017-12-12 17:23] LABS: Glucose,Whole Blood 265 mg/dL (75-99)
[2017-12-12 21:42] LABS: Glucose,Whole Blood 260 mg/dL (75-99)
[2017-12-12] MEDS: INSULIN DETEMIR 100 UNIT/ML 10 ML VIAL SQ SCH (21:44)
[2017-12-12] MEDS: CLOPIDOGREL 75 MG TAB PO SCH (21:48)
--- NOTE | 2017-12-12 22:34 | P.PN ---
Subjective This is a pleasant 41 years old male with past medical history of asthma, coronary artery disease with multiple vessel disease, heart failure, CVA/TIA, diabetes mellitus, GERD, hyperlipidemia, hypertension, osteoarthritis, pneumonia , sleep apnea on CPAP/BiPAP, chronic back pain, migraine, he had no hernia, rotator cuff tear, bronchitis, MRSA infection, he status post AICD, cardiac cath and stent, obesity. He presents because of dyspnea of 2 days' duration, associated with cough and scant phlegm as per patient were nonspecific in color. Associated with some chest tightness however the patient feels that from his shortness of breath. He also complained from diarrhea about 3-4 times yesterday, once today, with no associated abdominal pain no nausea vomiting were patient has epigastric tenderness Patient states that he is taking daptomycin for 2 weeks for now because he was at [facility] at that time heart attack and he needed cardiac pump which got infected and that's why he needed the daptomycin, he is not sure for how long he should be on daptomycin. He has PICC line on his right arm The ED was no noticed to be tachycardic with heart rate 107-112, rest of the vital signs are within normal limits. His WBC 5.9, hemoglobin 9.5, INR 1.4, sodium 132, potassium 4.4, creatinine 0.8, troponin is high at 0.2 (his previous troponins are always elevated between 0.05 and 1.6) UA was unremarkable for infection area from BMP is 11,700. EKG shows paced rhythm at 105 with QTC 433, chest x-ray shows new infiltrate could be related to acute pneumonia on both sides when the heart slightly enlarged. CT of the abdomen and pelvis without contrast showing urinary bladder wall thickening consistent with cystitis and mild ascites, with pleural effusions and cardiomegaly 12/11/2017 I saw and examined the patient today in the ICU, Patient was sent to the ICU overnight for suspicion of hypotension. His systolic blood pressure drops during sleep to 70s, over he goes up when he wakes up. Patient didn't need any pressors. Patient was awakened and in distress, is little bit short of breath and he says he is the same as he came in, No improvement or worsening. No chest pain. No more diarrhea or loose stools since admission. His sodium is down at 130. And creatinine slightly up from 0.8 to 1.1 ID consult is appreciated his antibiotics were changed from daptomycin to vancomycin and aztreonam. 12/12/2017 Patient still in the ICU, he still on dopamine to support his blood pressures and IV Lasix for fluid overload. His kidney function is improved from 1.1 to 0.8. Patient was suspected to have stroke yesterday overnight when he was noticed to have facial drop and lid drop, CT of the head was negative for acute hemorrhage or event. CT in general was also unremarkable. CTA was unremarkable eitherarea patient has patchy ground-glass opacity in both flanks, mostly CHF rather than pneumonia Review of systems CONSTITUTIONAL: No fever, no malaise, no fatigue. HEENT: No recent visual problems or hearing problems. Denied any sore throat. CARDIOVASCULAR: No orthopnea, PND, no palpitations, no syncope. PULMONARY: No shortness of breath, no cough, no hemoptysis. GASTROINTESTINAL: No diarrhea, no nausea, no vomiting, no abdominal pain. Normoactive bowel sounds. NEUROLOGICAL: No headaches, no weakness, no numbness. HEMATOLOGICAL: Denies any bleeding or petechiae. GENITOURINARY: Denies any burning micturition, frequency, or urgency. MUSCULOSKELETAL/RHEUMATOLOGICAL: Denies any joint pain, swelling, or any muscle pain. ENDOCRINE: Denies any polyuria or polydipsia. Objective - Vital Signs Vital signs: Vital Signs Temp 97.7 F 12/12/17 16:00 Pulse 88 12/12/17 18:00 Resp 13 12/12/17 18:00 BP 98/39 12/12/17 18:00 Pulse Ox 94 L 12/12/17 18:00 Intake & Output 12/11/17 12/12/17 12/12/17 18:59 06:59 18:59 Intake Total 695 522 6934 Output Total 341 8285 2205 Balance 157 -929 -306 Weight 109.4 kg 108.2 kg Intake: IV 694 840 861 Aztreonam 2 gm In Sodium 100 200 Chloride 0.9% 100 ml @ 100 mls/hr IVPB Q8HR [facility] Rx#:[id number] Sodium Chloride 0.9% 1, 260 240 160 000 ml @ 20 mls/hr IV . Q24H [facility] Rx#:[id number] Vancomycin 1,750 mg In 500 501 Sodium Chloride 0.9% 500 ml @ 167 mls/hr IVPB Q12H [facility] Rx#:[id number] azactam 100 vancomycin 334 Oral 60 600 Output: Urine 535 1155 2205 Other: Voiding Method Indwelling Catheter Indwelling Catheter Indwelling Catheter - Exam GENERAL: The patient is alert and oriented x3, not in any acute distress. Well developed, well nourished. HEENT: Pupils are round and equally reacting to light. EOMI. No scleral icterus. No conjunctival pallor. Normocephalic, atraumatic. No pharyngeal erythema. No thyromegaly. CARDIOVASCULAR: S1 and S2 present. No murmurs, rubs, or gallops. PULMONARY: Chest is clear to auscultation, no wheezing or crackles. ABDOMEN: Soft, nontender, nondistended, normoactive bowel sounds. No palpable organomegaly. MUSCULOSKELETAL: No joint swelling or deformity. EXTREMITIES: No cyanosis, clubbing, or pedal edema. NEUROLOGICAL: Gross neurological examination did not reveal any focal deficits. SKIN: No rashes. - Labs CBC & Chem 7: 12/12/17 05:30 12/12/17 05:30 Labs: Abnormal Lab Results - Last 24 Hours (Table) 12/11/17 12/12/17 12/12/17 Range/Units 21:10 05:30 05:30 RBC 3.35 L (4.30-5.90) m/uL Hgb 8.7 L (13.0-17.5) gm/dL Hct 27.8 L (39.0-53.0) % RDW 19.5 H (11.5-15.5) % Lymphocytes # 0.7 L (1.0-4.8) k/uL PT (9.0-12.0) sec INR (<1.2) Sodium 130 L (137-145) mmol/L Carbon Dioxide 19 L (22-30) mmol/L BUN 31 H (9-20) mg/dL Glucose 67 L (74-99) mg/dL POC Glucose (mg/dL) 174 H (75-99) mg/dL Calcium 7.7 L (8.4-10.2) mg/dL Troponin I (0.000-0.034) ng/mL 07/21/18 07/21/18 07/21/18 Range/Units 05:30 05:30 06:46 RBC (4.30-5.90) m/uL Hgb (13.0-17.5) gm/dL Hct (39.0-53.0) % RDW (11.5-15.5) % Lymphocytes # (1.0-4.8) k/uL PT 12.4 H (9.0-12.0) sec INR 1.3 H (<1.2) Sodium (137-145) mmol/L Carbon Dioxide (22-30) mmol/L BUN (9-20) mg/dL Glucose (74-99) mg/dL POC Glucose (mg/dL) 74 L (75-99) mg/dL Calcium (8.4-10.2) mg/dL Troponin I 0.188 H* (0.000-0.034) ng/mL 12/12/17 12/12/17 Range/Units 11:40 17:21 RBC (4.30-5.90) m/uL Hgb (13.0-17.5) gm/dL Hct (39.0-53.0) % RDW (11.5-15.5) % Lymphocytes # (1.0-4.8) k/uL PT (9.0-12.0) sec INR (<1.2) Sodium (137-145) mmol/L Carbon Dioxide (22-30) mmol/L BUN (9-20) mg/dL Glucose (74-99) mg/dL POC Glucose (mg/dL) 124 H 265 H (75-99) mg/dL Calcium (8.4-10.2) mg/dL Troponin I (0.000-0.034) ng/mL Microbiology - Last 24 Hours (Table) 12/10/17 11:38 Blood Culture - Preliminary Blood No Growth after 48 hours 12/11/17 05:20 Urine Culture - Final Urine,Catheterized Assessment and Plan Assessment: possible pneumonia Possible cystitis with thickened wall Diarrhea with some epigastric discomfort, could be reactive versus gastroenteritis Cardiomegaly with pleural effusions coronary artery disease with multiple vessel disease, he is status post AICD, cardiac cath and stent, heart failure chronically elevated troponin asthma CVA/TIA diabetes mellitus GERD hyperlipidemia hypertension sleep apnea on CPAP/BiPAP chronic back pain migraine h/o rotator cuff tear obesity U TIA/CVA, with right sided weakness and numbness, resolved Plan: Continue with the same treatment, continue symptomatic treatment. Resume home medication including insulin and pressure medication. Patient is on daptomycin for AICD infection as per patient. ID input is appreciated. Change daptomycin to IV vancomycin and is suturing them. calll cardiology consult for chest tightness and positive troponins, history of CHF. sent for sputum culture on blood culture. Consult for pulmonary. Continue with aspirin and Plavix. Lasix was increased to 40 twice a day, .he feels the head and CTA were unremarkable. And DVT and GI prophylaxis. Also patient has drop in hemoglobin from 9.5 to 8.5, iron studies, B12 and FOBT: Pending: Pending. INR 1.4 0 Monocryl follow-up INR Further recommendations based on the course of the patient's DVT prophylaxis on heparin GI prophylaxis on Pepcid PT/OT: Pending Prognosis is guarded
[2017-12-12] MEDS: NON-FORMULARY DRUG (Rosuvastatin Calcium [Crestor] 40 MG) PO SCH (22:50)
[2017-12-12] MEDS: ONDANSETRON 4 MG/2 ML VIAL IVP PRN (23:14)
[2017-12-13] MEDS ORDERED: VANCOMYCIN TROUGH DUE 1 EACH MISC MISCELLANE ONE (06:30)
[2017-12-13 06:49] LABS: INR 1.2 (<1.2); Prothrombin Time 11.6 sec (9.0-12.0)
[2017-12-13 06:54] LABS: Glucose,Whole Blood 185 mg/dL (75-99)
[2017-12-13 07:03] LABS: Anion Gap 6 mmol/L; Blood Urea Nitrogen 37 mg/dL (9-20); Calcium 7.9 mg/dL (8.4-10.2); Carbon Dioxide 26 mmol/L (22-30); Chloride 101 mmol/L (98-107); Glucose 159 mg/dL (74-99); Phosphorus 3.5 mg/dL (2.5-4.5); Potassium 4.1 mmol/L (3.5-5.1); Sodium 133 mmol/L (137-145)
[2017-12-13] MEDS: AZTREONAM 2 GM in SODIUM CHLORIDE 0.9% 100 ML IVPB SCH ×3 (07:44→23:11)
[2017-12-13] MEDS: MIDODRINE 5 MG TAB PO SCH ×3 (07:45→17:37)
[2017-12-13] MEDS: INSULIN ASPART 100 UNIT/ML 1 ML 10 ML VIAL SQ SCH ×7 (07:45→20:57)
[2017-12-13] MEDS: SODIUM CHLORIDE 0.9% 1,000 ML IV SCH ×2 (07:46→23:11)
[2017-12-13 08:13] LABS: Anisocytosis Slight; HCT 28.1 % (39.0-53.0); HGB 8.6 gm/dL (13.0-17.5); Hypochromasia Marked; MCH 25.3 pg (25.0-35.0); MCHC 30.7 g/dL (31.0-37.0); MCV 82.4 fL (80.0-100.0); Mean Platelet Volume 8.5; Microcytosis Slight; Platelet Count 277 k/uL (150-450); Poikilocytosis Slight; RBC 3.41 m/uL (4.30-5.90); RDW 19.5 % (11.5-15.5); WBC 5.4 k/uL (3.8-10.6)
[2017-12-13] MEDS: FUROSEMIDE 10 MG/ML 4 ML VIAL IV SCH ×3 (08:27→23:12)
[2017-12-13] MEDS: ASPIRIN 325 MG TAB PO SCH (08:27)
[2017-12-13] MEDS: VANCOMYCIN 1,750 MG in SODIUM CHLORIDE 0.9% 500 ML IVPB SCH (08:27)
[2017-12-13] MEDS: HEPARIN SODIUM,PORCINE 5,000 UNIT/ML 1 ML VIAL SQ SCH ×2 (08:28→20:15)
[2017-12-13] MEDS: FAMOTIDINE 20 MG TAB PO SCH (08:28)
[2017-12-13 08:37] LABS: Band Neutrophils % 1 %; Eosinophils # (M) 0.38 k/uL (0-0.7); Lymphocytes # (M) 1.03 k/uL (1.0-4.8); Metamyelocytes # (M) 0.11 k/uL (0); Metamyelocytes % 2 %; Monocytes # (M) 0.38 k/uL (0-1.0); Neutrophils % (M) 66 %; Nucleated Red Blood Cells 0 /100 WBC (0-0); Polychromasia Present; Total Cells Counted 200
--- NOTE | 2017-12-13 09:29 | XR ---
EXAMINATION TYPE: XR chest 1V portable DATE OF EXAM: 12/13/2017 HISTORY: chf. REFERENCE: Previous study dated 12/12/2017. FINDINGS: There is a bipolar pacemaker in place on the left. Lung volumes are prominent. The heart enlarged. There is worsening interstitial change. Pleural space s are clear. IMPRESSION: WORSENING CHANGES OF CONGESTIVE HEART FAILURE.
--- NOTE | 2017-12-13 10:13 | PN ---
PROGRESS NOTE HISTORY: Mr. Dunham is a 41-year-old male with a known history of coronary artery disease status post multiple percutaneous revascularization, history of cardiomyopathy, ICD implantation, who presented with symptoms of dyspnea and had hypotension related to the infection of his left foot. He is feeling better today. His breathing is better. He denies any chest pain. He denies any dizziness. He denies any palpitation. Hemodynamically, he is more stable. He is on no pressors. He continues to be on aspirin once a day, Plavix 75 mg daily, Lasix 40 mg IV q.8 hours, methylprednisone metoprolol succinate 25 mg daily, midodrine. His beta ravinder was not given earlier. He is on Crestor 40 mg daily, and Vancomycin. PHYSICAL EXAMINATION: Blood pressure 117/70 with a heart rate in the 90s. LUNGS: Clear. HEART: Regular rate and rhythm S1, S2. No S3. No rub. ABDOMEN: Soft, nontender, obese. EXTREMITIES: 1+ edema with dressing on the left leg. LAB DATA: Revealed BUN and creatinine of 37, 1.14, potassium 4.1, hemoglobin of 8.6. IMPRESSION: 1. History of coronary artery disease status post recent percutaneous revascularization at [facility]. Details not available. 2. Acute kidney injury, resolved. 3. Hypertension, resolved. 4. History of ischemic cardiomyopathy. 5. Left leg abscess on IV antibiotics. 6. Status post multiple percutaneous revascularization. RECOMMENDATION: From the cardiac standpoint, we will continue on the present therapy. I will cut down the dose of his metoprolol succinate 12.5 mg daily. He should be able to be transferred to telemetry floor. Increase his level of activity. Once he is stable, he will be switched to oral diuretics and depending on his progress, further recommendations will be made. MMODL / IJN: [id number] /
[2017-12-13 11:47] LABS: Glucose,Whole Blood 100 mg/dL (75-99)
--- NOTE | 2017-12-13 13:13 | P.PN ---
Subjective Progress Note Date: 12/13/17 Principal diagnosis: Acute hypoxic respiratory failure secondary to acute systolic congestive heart failure This is a 41-year-old white male with history of cardiomyopathy, ischemic in nature, related to previous GA about 2 years ago. Patient required AICD placement, and he was recently at [facility] for issues related to his defibrillator, and apparently had a left leg abscess with bacteremia requiring high doses of daptomycin. Patient was admitted yesterday with mostly symptoms of shortness of breath, cough, and some vague chest pain and discomfort. Chest x-ray on admission showed interstitial edema, however based on the chest x-ray it is difficult to rule out underlying pneumonia. Patient was admitted, placed on diuretics, antibiotics, and he was seen by infectious disease on consultation. Last night, patient developed low blood pressure, and he was transferred to the ICU for possible starting the patient on norepinephrine. However he was given 1 bolus of 500 mL of 0.9 normal saline, and by the time he was transferred to the ICU, his blood pressure stabilizes. Did not require any pressors. Presently remains in the intensive care unit, and we plan to transfer him back to monitor bed on selective. Since admission the patient was seen by many consultants including infectious disease, and he was placed on vancomycin. He was also seen by nephrology for acute kidney injury and hyponatremia. Antibiotics frankel patient is now on vancomycin and aztreonam. Looking back at his chart, patient is known to have history of systolic congestive heart failure with ejection fraction of 20%. And his baseline creatinine is usually normal. During my evaluation, patient denied any headache , no blurred vision, no dizziness, some shortness of breath, no cough, no wheezing, no chest pain. No palpitations no nausea no vomiting no abdominal pain no melena no hematemesis no dysuria and no frequency no urgency. Continues to have a superficial ulceration on the anterior aspect of the right lower extremity just below the knee. Patient was reevaluated today on 12/12/2017, remains in the intensive care unit, continues to have some interstitial edema based on the chest x-ray findings, shortness of breath is slightly improved, patient had some neurological symptoms suggestive of TIA last night, underwent CT of the brain and CT angiography, he was noted to have normal CTA of the [place] of [place]. Patchy groundglass opacities in both lungs reflecting mostly congestive heart failure, doubt pneumonia. CBC is relatively normal except for hemoglobin of 8.7, no evidence of leukocytosis. Basic metabolic profile is relatively normal except for a low sodium of 130 and bicarb of 19. Renal profile showed a prerenal picture. BUN is 30 creatinine is 0.8 today the patient's neurological symptoms have resolved, they were mostly some right-sided weakness and numbness. Patient was reevaluated today on 12/13/2017, remains in the intensive care unit, feeling better clinically, chest x-ray is basically about the same showing diffuse interstitial edema, underlying pneumonia is not entirely ruled out and clinically felt to be less likely. Patient is breathing easier, no cough no wheezing, no shortness of breath at rest. CBC showed WBC count of 5.4 hemoglobin is 8.6 his basic metabolic profile is normal, BUN is 37 creatinine is 1.14. Objective - Vital Signs Vital signs: Vital Signs Temp 98.5 F 12/13/17 12:00 Pulse 96 12/13/17 12:00 Resp 22 12/13/17 12:00 BP 107/75 12/13/17 12:00 Pulse Ox 96 12/13/17 12:00 Intake & Output 12/12/17 12/13/17 12/13/17 18:59 06:59 18:59 Intake Total 1461 1428 846 Output Total 2205 1010 820 Balance -744 418 26 Weight 112 kg Intake: IV 861 928 621 Aztreonam 2 gm In Sodium 200 100 100 Chloride 0.9% 100 ml @ 100 mls/hr IVPB Q8HR [facility] Rx#:[id number] Sodium Chloride 0.9% 1, 160 160 20 000 ml @ 20 mls/hr IV . Q24H [facility] Rx#:[id number] Vancomycin 1,750 mg In 501 668 501 Sodium Chloride 0.9% 500 ml @ 167 mls/hr IVPB Q12H [facility] Rx#:[id number] Oral 600 500 225 Output: Urine 2205 1010 820 Other: Voiding Method Indwelling Catheter Indwelling Catheter Indwelling Catheter - Exam Physical Exam revealed a 41-year-old white male, in no form of respiratory distress, on nasal cannula. Head: Atraumatic, normocephalic. HEENT:[Neck is supple.] [No neck masses.] [No thyromegaly.] [No JVD.] PERRLA, EOMI, no icterus, throat is clear, no oral thrush. Chest: [Symmetrical expansion, crackles at the bases bilaterally, no crackles, no rhonchi no wheezes, no chest wall tenderness. Cardiac Exam: [Distant S1 and S2, no S3 gallop, no murmur.] Abdomen: [Obese, Soft, nontender, no megaly, no rebound, no guarding, normal bowel sounds.] Extremities: [No clubbing, trace of bipedal edema, no cyanosis.] Evidence of ulceration noted at the left calf region just below the left knee with minimal purulent drainage and minimal erythema surrounding the ulceration. Neurological Exam: [No focal neurologic deficit. Psychiatric: Normal mood, affect, and mental status examination. ] Lymphatics: No lymphadenopathy. - Labs CBC & Chem 7: 12/13/17 06:30 12/13/17 06:30 Labs: Abnormal Lab Results - Last 24 Hours (Table) 12/12/17 12/12/17 12/13/17 Range/Units 17:21 21:41 06:30 RBC 3.41 L (4.30-5.90) m/uL Hgb 8.6 L (13.0-17.5) gm/dL Hct 28.1 L (39.0-53.0) % MCHC 30.7 L (31.0-37.0) g/dL RDW 19.5 H (11.5-15.5) % Metamyelocytes # (Man) 0.11 H (0) k/uL INR (<1.2) Sodium (137-145) mmol/L BUN (9-20) mg/dL Glucose (74-99) mg/dL POC Glucose (mg/dL) 265 H 260 H (75-99) mg/dL Calcium (8.4-10.2) mg/dL 12/13/17 12/13/17 12/13/17 Range/Units 06:30 06:30 06:53 RBC (4.30-5.90) m/uL Hgb (13.0-17.5) gm/dL Hct (39.0-53.0) % MCHC (31.0-37.0) g/dL RDW (11.5-15.5) % Metamyelocytes # (Man) (0) k/uL INR 1.2 H (<1.2) Sodium 133 L (137-145) mmol/L BUN 37 H (9-20) mg/dL Glucose 159 H (74-99) mg/dL POC Glucose (mg/dL) 185 H (75-99) mg/dL Calcium 7.9 L (8.4-10.2) mg/dL 12/13/17 Range/Units 11:45 RBC (4.30-5.90) m/uL Hgb (13.0-17.5) gm/dL Hct (39.0-53.0) % MCHC (31.0-37.0) g/dL RDW (11.5-15.5) % Metamyelocytes # (Man) (0) k/uL INR (<1.2) Sodium (137-145) mmol/L BUN (9-20) mg/dL Glucose (74-99) mg/dL POC Glucose (mg/dL) 100 H (75-99) mg/dL Calcium (8.4-10.2) mg/dL Microbiology - Last 24 Hours (Table) 12/10/17 11:38 Blood Culture - Preliminary Blood No Growth after 48 hours 12/11/17 05:20 Urine Culture - Final Urine,Catheterized Assessment and Plan Assessment: Impression: 1 acute systolic congestive heart failure and hypoxic respiratory failure secondary to CHF. 2 underlying pneumonia is not entirely ruled out, but felt to be less likely patient is on empiric antibiotics including vancomycin and aztreonam, suggested by infectious disease on the case. 3 severe ischemic cardiomyopathy and LV dysfunction with previous AICD placement. 4 left lower extremity abscess and recent episode of bacteremia treated recently with daptomycin, presently on vancomycin and aztreonam. 5 acute episode of hypotension secondary to profound LV dysfunction and diuretics. Possible some component of hypovolemia, strongly doubt sepsis causing his hypotension. Recommendation: Continue present supportive care measures, continue diuretics, cautiously, continue antibiotics, transfer patient today to a monitor bed on selective. Time with Patient: Less than 30
[2017-12-13 16:14] LABS: Glucose,Whole Blood 111 mg/dL (75-99)
[2017-12-13 17:03] LABS: Glucose,Whole Blood 100 mg/dL (75-99)
[2017-12-13] MEDS: CLOPIDOGREL 75 MG TAB PO SCH (20:14)
[2017-12-13] MEDS: NON-FORMULARY DRUG (Rosuvastatin Calcium [Crestor] 40 MG) PO SCH (20:14)
[2017-12-13] MEDS: INSULIN DETEMIR 100 UNIT/ML 10 ML VIAL SQ SCH (20:57)
[2017-12-13 20:59] LABS: Glucose,Whole Blood 103 mg/dL (75-99)
--- NOTE | 2017-12-13 21:46 | P.PN ---
Subjective This is a pleasant 41 years old male with past medical history of asthma, coronary artery disease with multiple vessel disease, heart failure, CVA/TIA, diabetes mellitus, GERD, hyperlipidemia, hypertension, osteoarthritis, pneumonia , sleep apnea on CPAP/BiPAP, chronic back pain, migraine, he had no hernia, rotator cuff tear, bronchitis, MRSA infection, he status post AICD, cardiac cath and stent, obesity. He presents because of dyspnea of 2 days' duration, associated with cough and scant phlegm as per patient were nonspecific in color. Associated with some chest tightness however the patient feels that from his shortness of breath. He also complained from diarrhea about 3-4 times yesterday, once today, with no associated abdominal pain no nausea vomiting were patient has epigastric tenderness Patient states that he is taking daptomycin for 2 weeks for now because he was at [facility] at that time heart attack and he needed cardiac pump which got infected and that's why he needed the daptomycin, he is not sure for how long he should be on daptomycin. He has PICC line on his right arm The ED was no noticed to be tachycardic with heart rate 107-112, rest of the vital signs are within normal limits. His WBC 5.9, hemoglobin 9.5, INR 1.4, sodium 132, potassium 4.4, creatinine 0.8, troponin is high at 0.2 (his previous troponins are always elevated between 0.05 and 1.6) UA was unremarkable for infection area from BMP is 11,700. EKG shows paced rhythm at 105 with QTC 433, chest x-ray shows new infiltrate could be related to acute pneumonia on both sides when the heart slightly enlarged. CT of the abdomen and pelvis without contrast showing urinary bladder wall thickening consistent with cystitis and mild ascites, with pleural effusions and cardiomegaly 12/11/2017 I saw and examined the patient today in the ICU, Patient was sent to the ICU overnight for suspicion of hypotension. His systolic blood pressure drops during sleep to 70s, over he goes up when he wakes up. Patient didn't need any pressors. Patient was awakened and in distress, is little bit short of breath and he says he is the same as he came in, No improvement or worsening. No chest pain. No more diarrhea or loose stools since admission. His sodium is down at 130. And creatinine slightly up from 0.8 to 1.1 ID consult is appreciated his antibiotics were changed from daptomycin to vancomycin and aztreonam. 12/12/2017 Patient still in the ICU, he still on dopamine to support his blood pressures and IV Lasix for fluid overload. His kidney function is improved from 1.1 to 0.8. Patient was suspected to have stroke yesterday overnight when he was noticed to have facial drop and lid drop, CT of the head was negative for acute hemorrhage or event. CT in general was also unremarkable. CTA was unremarkable eitherarea patient has patchy ground-glass opacity in both flanks, mostly CHF rather than pneumonia 12/13/2017 Patient still in the ICU, on no pressors , his BP is stable and he is considered to be transfered out of the ICU today to the general medical floor , he is on IV Lasix for fluid overload. His kidney function is improved from 1.1 to 0.8. Patient was suspected to have stroke2 [place] he was noticed to have facial drop and lid drop, CT of the head was negative for acute hemorrhage or event. CT in general was also unremarkable. CTA was unremarkable either, has patchy ground-glass opacity in both sides, mostly CHF rather than pneumonia Objective - Vital Signs Vital signs: Vital Signs Temp 97.9 F 12/13/17 16:00 Pulse 99 12/13/17 19:00 Resp 20 12/13/17 19:00 BP 103/85 12/13/17 19:00 Pulse Ox 92 L 12/13/17 19:00 Intake & Output 12/13/17 12/13/17 12/14/17 06:59 18:59 06:59 Intake Total 1428 1266 Output Total 1010 1845 Balance 418 -579 Weight 112 kg Intake: IV 928 841 Aztreonam 2 gm In Sodium 100 200 Chloride 0.9% 100 ml @ 100 mls/hr IVPB Q8HR JAKE Rx#:[id number] Sodium Chloride 0.9% 1, 160 140 000 ml @ 20 mls/hr IV . Q24H JAKE Rx#:[id number] Vancomycin 1,750 mg In 668 501 Sodium Chloride 0.9% 500 ml @ 167 mls/hr IVPB Q12H JAKE Rx#:[id number] Oral 500 425 Output: Urine 1010 1845 Other: Voiding Method Indwelling Catheter Indwelling Catheter - Exam GENERAL: The patient is alert and oriented x3, not in any acute distress. Well developed, well nourished. HEENT: Pupils are round and equally reacting to light. EOMI. No scleral icterus. No conjunctival pallor. Normocephalic, atraumatic. No pharyngeal erythema. No thyromegaly. CARDIOVASCULAR: S1 and S2 present. No murmurs, rubs, or gallops. PULMONARY: Chest is clear to auscultation, no wheezing or crackles. ABDOMEN: Soft, nontender, nondistended, normoactive bowel sounds. No palpable organomegaly. MUSCULOSKELETAL: No joint swelling or deformity. EXTREMITIES: No cyanosis, clubbing, or pedal edema. NEUROLOGICAL: Gross neurological examination did not reveal any focal deficits. SKIN: No rashes. - Labs CBC & Chem 7: 12/13/17 06:30 12/13/17 06:30 Labs: Abnormal Lab Results - Last 24 Hours (Table) 12/11/17 12/11/17 12/12/17 Range/Units 04:54 04:54 21:41 RBC (4.30-5.90) m/uL Hgb (13.0-17.5) gm/dL Hct (39.0-53.0) % MCHC (31.0-37.0) g/dL RDW (11.5-15.5) % Metamyelocytes # (Man) (0) k/uL INR (<1.2) Sodium (137-145) mmol/L BUN (9-20) mg/dL Glucose (74-99) mg/dL POC Glucose (mg/dL) 260 H (75-99) mg/dL Calcium (8.4-10.2) mg/dL Iron 9 L 10 L (65-175) ug/dL TIBC 216 L (228-460) ug/dL Iron Saturation 4.17 L (15.00-50.00) 12/13/17 12/13/17 12/13/17 Range/Units 06:30 06:30 06:30 RBC 3.41 L (4.30-5.90) m/uL Hgb 8.6 L (13.0-17.5) gm/dL Hct 28.1 L (39.0-53.0) % MCHC 30.7 L (31.0-37.0) g/dL RDW 19.5 H (11.5-15.5) % Metamyelocytes # (Man) 0.11 H (0) k/uL INR 1.2 H (<1.2) Sodium 133 L (137-145) mmol/L BUN 37 H (9-20) mg/dL Glucose 159 H (74-99) mg/dL POC Glucose (mg/dL) (75-99) mg/dL Calcium 7.9 L (8.4-10.2) mg/dL Iron (65-175) ug/dL TIBC (228-460) ug/dL Iron Saturation (15.00-50.00) 12/13/17 12/13/17 12/13/17 Range/Units 06:53 11:45 16:12 RBC (4.30-5.90) m/uL Hgb (13.0-17.5) gm/dL Hct (39.0-53.0) % MCHC (31.0-37.0) g/dL RDW (11.5-15.5) % Metamyelocytes # (Man) (0) k/uL INR (<1.2) Sodium (137-145) mmol/L BUN (9-20) mg/dL Glucose (74-99) mg/dL POC Glucose (mg/dL) 185 H 100 H 111 H (75-99) mg/dL Calcium (8.4-10.2) mg/dL Iron (65-175) ug/dL TIBC (228-460) ug/dL Iron Saturation (15.00-50.00) 12/13/17 12/13/17 Range/Units 17:01 20:55 RBC (4.30-5.90) m/uL Hgb (13.0-17.5) gm/dL Hct (39.0-53.0) % MCHC (31.0-37.0) g/dL RDW (11.5-15.5) % Metamyelocytes # (Man) (0) k/uL INR (<1.2) Sodium (137-145) mmol/L BUN (9-20) mg/dL Glucose (74-99) mg/dL POC Glucose (mg/dL) 100 H 103 H (75-99) mg/dL Calcium (8.4-10.2) mg/dL Iron (65-175) ug/dL TIBC (228-460) ug/dL Iron Saturation (15.00-50.00) Microbiology - Last 24 Hours (Table) 12/10/17 11:38 Blood Culture - Preliminary Blood No Growth after 72 hours Assessment and Plan Assessment: possible pneumonia Possible cystitis with thickened wall Diarrhea with some epigastric discomfort, could be reactive versus gastroenteritis Cardiomegaly with pleural effusions coronary artery disease with multiple vessel disease, he is status post AICD, cardiac cath and stent, heart failure chronically elevated troponin asthma CVA/TIA diabetes mellitus GERD hyperlipidemia hypertension sleep apnea on CPAP/BiPAP chronic back pain migraine h/o rotator cuff tear obesity U TIA/CVA, with right sided weakness and numbness, resolved Plan: Continue with the same treatment, continue symptomatic treatment. Resume home medication including insulin and pressure medication. Patient is on daptomycin for AICD infection as per patient. ID input is appreciated. Change daptomycin to IV vancomycin and is suturing them. calll cardiology consult for chest tightness and positive troponins, history of CHF. sent for sputum culture on blood culture. Consult for pulmonary. Continue with aspirin and Plavix. Lasix was increased to 40 twice a day, .he feels the head and CTA were unremarkable. And DVT and GI prophylaxis. Also patient has drop in hemoglobin from 9.5 to 8.5, iron studies, B12 and FOBT: Pending: Pending. INR 1.4 0 Monocryl follow-up INR Further recommendations based on the course of the patient's DVT prophylaxis on heparin GI prophylaxis on Pepcid PT/OT: Pending Prognosis is guarded
[2017-12-14] MEDS: VANCOMYCIN 1,750 MG in SODIUM CHLORIDE 0.9% 500 ML IVPB SCH ×2 (00:43→18:21)
[2017-12-14 05:20] LABS: Anisocytosis Slight; Basophils % (A) 0 %; Eosinophils # (A) 0.7 k/uL (0-0.7); Eosinophils % (A) 12 %; HCT 29.9 % (39.0-53.0); HGB 9.2 gm/dL (13.0-17.5); Hypochromasia Marked; Lymphocytes # (A) 1.3 k/uL (1.0-4.8); Lymphocytes % (A) 21 %; MCH 25.1 pg (25.0-35.0); MCHC 30.8 g/dL (31.0-37.0); MCV 81.5 fL (80.0-100.0); Mean Platelet Volume 7.8; Microcytosis Slight; Monocytes # (A) 0.3 k/uL (0-1.0); Monocytes % (A) 5 %; Neutrophils # (A) 3.8 k/uL (1.3-7.7); Neutrophils % (A) 61 %; Platelet Count 332 k/uL (150-450); Poikilocytosis Slight; RBC 3.66 m/uL (4.30-5.90); RDW 19.7 % (11.5-15.5); WBC 6.2 k/uL (3.8-10.6)
[2017-12-14 05:27] LABS: Anion Gap 6 mmol/L; Blood Urea Nitrogen 41 mg/dL (9-20); Calcium 8.1 mg/dL (8.4-10.2); Carbon Dioxide 26 mmol/L (22-30); Chloride 105 mmol/L (98-107); Glucose 77 mg/dL (74-99); Magnesium 1.9 mg/dL (1.6-2.3); Potassium 3.8 mmol/L (3.5-5.1); Sodium 137 mmol/L (137-145)
--- NOTE | 2017-12-14 06:38 | PN ---
PROGRESS NOTE Patient is seen for followup for acute kidney injury. His creatinine was down to 0.8 yesterday, today it is at 1.14. The patient has had good urine output. He is maintained on Lasix 40 mg IV q.8 hours. The patient has had good urine output. He has an indwelling Mtz catheter, 24 hour urine output was 3.2 L. PHYSICAL EXAMINATION: On examination, blood pressure this morning was 109/69, heart rate about 100 per minute. Patient is afebrile. EXAMINATION OF THE HEART: S1, S2. EXAMINATION OF THE LUNGS: Bilateral breath sounds are heard. Abdomen is soft, nontender. EXAMINATION OF THE LOWER EXTREMITIES: Ulceration in the left leg just below the knee. This is currently dressed. No significant drainage is noted today. PNEUMATIC TUBE FITTER exam is grossly intact. LABS: Labs reveal sodium 133, potassium 4.1, BUN 37, serum creatinine 1.14, hemoglobin 8.6 g/dL. ASSESSMENT: 1. Acute kidney injury, nonoliguric secondary to hypotension hypoperfusion. Serum creatinine had improved to 0.8. It is elevated at 1.1 today. The patient is maintained on IV Lasix. I will continue with the current dose. His weight had been stable. However, I am not sure if this is accurate. Today's weight is up to 112 kg from 108 yesterday. Overall, patient states he feels well. He has had good urine output. If the serum creatinine is higher tomorrow we can decrease the diuretics. 2. Left lower extremity ulcer, maintained on IV antibiotics. 3. Volume overload. Continue with the IV Lasix. Can decrease Lasix tomorrow depending on his renal profile. 4. Hypervolemic, hyponatremia. Expect further improvement with improvement in volume status. Maintain patient on fluid restriction. PLAN: Repeat labs in a.m. Continue with current dose of Lasix. Consider decreasing diuretics tomorrow based on labs. MMODL / IJN: [id number] /
[2017-12-14 06:52] LABS: Glucose,Whole Blood 80 mg/dL (75-99)
[2017-12-14] MEDS ORDERED: POTASSIUM CHLORIDE ER 20 MEQ TAB.ER PO SCH (07:00)
--- NOTE | 2017-12-14 07:25 | XR ---
EXAMINATION TYPE: XR chest 1V portable DATE OF EXAM: 12/14/2017 Comparison: 12/13/2017 Clinical History: 41-year-old male follow-up CHF Findings: Left anterior chest wall AICD generator with right atrial, right ventricular, and coronary sinus lead s. Heart remains mildly enlarged. Diffuse vascular prominence and interstitial densities persist but show some interval improvement. Left perihilar density persists but is less confluent. No significant pleural effusion seen on the frontal view. Impression: CHF with persistent but improving interstitial pulmonary edema.
--- NOTE | 2017-12-14 08:05 | PN ---
PROGRESS NOTE Mr. Dunham is a 41-year-old male with a known history of severe ischemic cardiomyopathy, status post ICD implant and multiple percutaneous revascularization who presented with episode of hypotension was thought to be related to sepsis. He is feeling well this morning. His breathing has been stable. He denying any symptoms of chest pain. He denies any dizziness. He continues to be in paced rhythm without any evidence of malignant tachyarrhythmia. He is continued to be on aspirin once a day, Plavix 75 mg daily, Lasix 40 mg IV q.8 hours, metoprolol succinate 12.5 mg daily. PHYSICAL EXAMINATION: Blood pressure running in the 120s with the heart rate in the 90s. LUNGS: Clear. HEART: Regular rate and rhythm. S1, S2. No S3 with systolic murmur. ABDOMEN: Soft, nontender. EXTREMITIES: Dressing noted on the left leg with minimal edema. LAB DATA: Lab data revealed BUN and creatinine 41 and 0.92, potassium 3.8, hemoglobin of 9.2. IMPRESSION: 1. Hypotension, resolved. 2. History of coronary artery disease with multiple percutaneous revascularization. 3. Severe ischemic cardiomyopathy, status post ICD. 4. Acute kidney injury, resolved. 5. Left leg abscess. 6. Congestive heart failure with chronic systolic dysfunction. RECOMMENDATION: From the cardiac standpoint, we will continue present therapy. I am hopeful that he will be able to transfer to telemetry floor. Increase his level activity and depending on his progress, further recommendation will be made. MMAMBROSEL / TATIANA: [id number] /
--- NOTE | 2017-12-14 08:22 | P.PN ---
Subjective Progress Note Date: 12/14/17 Principal diagnosis: Acute hypoxemic respiratory failure secondary to acute systolic congestive heart failure This is a 41-year-old white male with history of cardiomyopathy, ischemic in nature, related to previous AK about 2 years ago. Patient required AICD placement, and he was recently at [facility] for issues related to his defibrillator, and apparently had a left leg abscess with bacteremia requiring high doses of daptomycin. Patient was admitted yesterday with mostly symptoms of shortness of breath, cough, and some vague chest pain and discomfort. Chest x-ray on admission showed interstitial edema, however based on the chest x-ray it is difficult to rule out underlying pneumonia. Patient was admitted, placed on diuretics, antibiotics, and he was seen by infectious disease on consultation. Last night, patient developed low blood pressure, and he was transferred to the ICU for possible starting the patient on norepinephrine. However he was given 1 bolus of 500 mL of 0.9 normal saline, and by the time he was transferred to the ICU, his blood pressure stabilizes. Did not require any pressors. Presently remains in the intensive care unit, and we plan to transfer him back to monitor bed on selective. Since admission the patient was seen by many consultants including infectious disease, and he was placed on vancomycin. He was also seen by nephrology for acute kidney injury and hyponatremia. Antibiotics frankel patient is now on vancomycin and aztreonam. Looking back at his chart, patient is known to have history of systolic congestive heart failure with ejection fraction of 20%. And his baseline creatinine is usually normal. During my evaluation, patient denied any headache , no blurred vision, no dizziness, some shortness of breath, no cough, no wheezing, no chest pain. No palpitations no nausea no vomiting no abdominal pain no melena no hematemesis no dysuria and no frequency no urgency. Continues to have a superficial ulceration on the anterior aspect of the right lower extremity just below the knee. Patient was reevaluated today on 12/12/2017, remains in the intensive care unit, continues to have some interstitial edema based on the chest x-ray findings, shortness of breath is slightly improved, patient had some neurological symptoms suggestive of TIA last night, underwent CT of the brain and CT angiography, he was noted to have normal CTA of the [place]. Patchy groundglass opacities in both lungs reflecting mostly congestive heart failure, doubt pneumonia. CBC is relatively normal except for hemoglobin of 8.7, no evidence of leukocytosis. Basic metabolic profile is relatively normal except for a low sodium of 130 and bicarb of 19. Renal profile showed a prerenal picture. BUN is 30 creatinine is 0.8 today the patient's neurological symptoms have resolved, they were mostly some right-sided weakness and numbness. Patient was reevaluated today on 12/13/2017, remains in the intensive care unit, feeling better clinically, chest x-ray is basically about the same showing diffuse interstitial edema, underlying pneumonia is not entirely ruled out and clinically felt to be less likely. Patient is breathing easier, no cough no wheezing, no shortness of breath at rest. CBC showed WBC count of 5.4 hemoglobin is 8.6 his basic metabolic profile is normal, BUN is 37 creatinine is 1.14. On 12/14/2017 patient is reevaluated in the intensive care unit. Denies any acute distress, denies worsening dyspnea, pulse ox on 2 L per nasal cannula is 98-99%, patient is afebrile,hemodynamically stable. Denies any chest pain, maintenance IV fluids 0.9 normal saline at a rate of 20 ML per hour, patient's urine, and blood cultures remain negative, he remains on aztreonam and vancomycin for possible underlying pneumonia, bacteremia,with sepsis. His labs were noted, the VBC 6.2, hemoglobin is 9.2, electrolytes are within normal limits, BUN is 41, creatinine 0.92, patient is developing prerenal azotemia. Still has 1+ pitting edema in bilateral lower extremities, isn't open wound on his right tibia, which is covered with a dressing, and ID service is following in regards to wound care. Denies any fever or chills, patient has a congested cough, times is able to bring up whitish color sputum. Lung sounds are positive for fine rales over anterior lobes, there are some scattered rhonchi bilaterally. Today's chest x-ray has been reviewed and shows diffuse vascular prominence and interstitial densities, consistent with persistent but improving interstitial pulmonary edema. Patient remains on IV diuretics, 40 mg every 8 hours, he is in -700 mL fluid balance, and his weight is down 5.2 kg in the last 24 hours. Objective - Vital Signs Vital signs: Vital Signs Temp 97.6 F 07/23/18 04:00 Pulse 100 12/14/17 06:00 Resp 22 12/14/17 06:00 BP 106/70 12/14/17 05:00 Pulse Ox 99 12/14/17 06:00 Intake & Output 12/13/17 12/14/17 12/14/17 18:59 06:59 18:59 Intake Total 1266 1088 Output Total 1845 1210 Balance -579 -122 Weight 106.8 kg Intake: IV 841 968 Aztreonam 2 gm In Sodium 200 100 Chloride 0.9% 100 ml @ 100 mls/hr IVPB Q8HR JAKE Rx#:[id number] Sodium Chloride 0.9% 1, 140 200 000 ml @ 20 mls/hr IV . Q24H JAKE Rx#:[id number] Vancomycin 1,750 mg In 501 668 Sodium Chloride 0.9% 500 ml @ 167 mls/hr IVPB Q12H JAKE Rx#:[id number] Oral 425 120 Output: Urine 1845 1210 Other: Voiding Method Indwelling Catheter Indwelling Catheter - Exam Physical Exam revealed a 41-year-old white male, in no form of respiratory distress, on nasal cannula. Head: Atraumatic, normocephalic. HEENT:[Neck is supple.] [No neck masses.] [No thyromegaly.] [No JVD.] PERRLA, EOMI, no icterus, throat is clear, no oral thrush. Chest: [Symmetrical expansion, fine crackles bilaterally, scattered rhonchi, but no wheezes, no chest wall tenderness. Cardiac Exam: [Distant S1 and S2, no S3 gallop, no murmur.] Abdomen: [Obese, Soft, nontender, no megaly, no rebound, no guarding, normal bowel sounds.] Extremities: [No clubbing, trace of bipedal edema, no cyanosis.] Evidence of ulceration noted at the left calf region just below the left knee with minimal purulent drainage and minimal erythema surrounding the ulceration. Neurological Exam: [No focal neurologic deficit. Psychiatric: Normal mood, affect, and mental status examination. ] Lymphatics: No lymphadenopathy. - Labs CBC & Chem 7: 12/14/17 05:02 12/14/17 05:02 Labs: Abnormal Lab Results - Last 24 Hours (Table) 12/11/17 12/11/17 12/13/17 Range/Units 04:54 04:54 06:30 RBC 3.41 L (4.30-5.90) m/uL Hgb 8.6 L (13.0-17.5) gm/dL Hct 28.1 L (39.0-53.0) % MCHC 30.7 L (31.0-37.0) g/dL RDW 19.5 H (11.5-15.5) % Metamyelocytes # (Man) 0.11 H (0) k/uL BUN (9-20) mg/dL POC Glucose (mg/dL) (75-99) mg/dL Calcium (8.4-10.2) mg/dL Iron 9 L 10 L (65-175) ug/dL TIBC 216 L (228-460) ug/dL Iron Saturation 4.17 L (15.00-50.00) 12/13/17 12/13/17 12/13/17 Range/Units 11:45 16:12 17:01 RBC (4.30-5.90) m/uL Hgb (13.0-17.5) gm/dL Hct (39.0-53.0) % MCHC (31.0-37.0) g/dL RDW (11.5-15.5) % Metamyelocytes # (Man) (0) k/uL BUN (9-20) mg/dL POC Glucose (mg/dL) 100 H 111 H 100 H (75-99) mg/dL Calcium (8.4-10.2) mg/dL Iron (65-175) ug/dL TIBC (228-460) ug/dL Iron Saturation (15.00-50.00) 12/13/17 12/14/17 12/14/17 Range/Units 20:55 05:02 05:02 RBC 3.66 L (4.30-5.90) m/uL Hgb 9.2 L (13.0-17.5) gm/dL Hct 29.9 L (39.0-53.0) % MCHC 30.8 L (31.0-37.0) g/dL RDW 19.7 H (11.5-15.5) % Metamyelocytes # (Man) (0) k/uL BUN 41 H (9-20) mg/dL POC Glucose (mg/dL) 103 H (75-99) mg/dL Calcium 8.1 L (8.4-10.2) mg/dL Iron (65-175) ug/dL TIBC (228-460) ug/dL Iron Saturation (15.00-50.00) Microbiology - Last 24 Hours (Table) 12/10/17 11:38 Blood Culture - Preliminary Blood No Growth after 72 hours Assessment and Plan Plan: Assessment: 1 acute systolic congestive heart failure and hypoxic respiratory failure secondary to CHF. 2 underlying pneumonia is not entirely ruled out, but felt to be less likely patient is on empiric antibiotics including vancomycin and aztreonam, suggested by infectious disease on the case. 3 severe ischemic cardiomyopathy and LV dysfunction with previous AICD placement. 4 left lower extremity abscess and recent episode of bacteremia treated recently with daptomycin, presently on vancomycin and aztreonam. 5 acute episode of hypotension secondary to profound LV dysfunction and diuretics. Possible some component of hypovolemia, strongly doubt sepsis causing his hypotension. Recommendation: Continue IV diuretics for another 24 hours, today's chest x-ray shows persistent but improving interstitial densities, consistent with pulmonary edema. Increase activity as tolerated, encourage deep breathing and coughing, vital signs remain stable, cultures remain negative thus far, patient remains on broad-spectrum antibiotics. No fever, no chills. No worsening dyspnea, no chest pain. Patient is stable to move out the intensive care unit today to selective care unit. I performed a history & physical examination of the patient and discussed their management with my nurse practitioner, Beronica Núñez. I reviewed the nurse practitioner's note and agree with the documented findings and plan of care. Lung sounds are positive for fine crackles, and scattered rhonchi. The findings and the impression was discussed with the patient. I attest to the documentation by the nurse practitioner. Time with Patient: Less than 30
[2017-12-14] MEDS: INSULIN ASPART 100 UNIT/ML 1 ML 10 ML VIAL SQ SCH ×7 (09:01→22:14)
[2017-12-14] MEDS: AZTREONAM 2 GM in SODIUM CHLORIDE 0.9% 100 ML IVPB SCH ×3 (09:11→23:03)
[2017-12-14] MEDS: MIDODRINE 5 MG TAB PO SCH ×3 (09:12→19:14)
[2017-12-14] MEDS: FUROSEMIDE 10 MG/ML 4 ML VIAL IV SCH ×2 (09:12→16:31)
[2017-12-14] MEDS: ASPIRIN 325 MG TAB PO SCH (09:13)
[2017-12-14] MEDS: FAMOTIDINE 20 MG TAB PO SCH ×2 (09:13→22:12)
[2017-12-14] MEDS: HEPARIN SODIUM,PORCINE 5,000 UNIT/ML 1 ML VIAL SQ SCH ×2 (09:13→23:09)
[2017-12-14] MEDS: METOPROLOL SUCCINATE (ER) 25 MG TAB.ER.24H PO SCH (09:14)
[2017-12-14] MEDS ORDERED: SENNOSIDES 8.6 MG TAB PO PRN (09:58)
--- NOTE | 2017-12-14 10:13 | P.PN ---
Subjective Patient is seen in follow-up for acute kidney injury and volume overload. Creatinine is 0.92 today. He is currently maintained on Lasix 40 mg IV 3 times daily. He is nonoliguric. Edema is improving. Oral intake is good. No vomiting or diarrhea. Denies chest pain or shortness of breath. Patient has systolic CHF with ejection fraction of 20-25%. Vital signs are stable. General: The patient appeared well nourished and normally developed. HEENT: Head exam is unremarkable. Neck is without jugular venous distension. LUNGS: Lungs are clear to auscultation and percussion. Breath sounds decreased. HEART: Rate and Rhythm are regular. First and second heart sounds normal. No murmurs, rubs or gallops. ABDOMEN: Abdominal exam reveals normal bowel sounds. Non-tender and non- distended. No evidence of peritonitis. EXTREMITITES: No clubbing, cyanosis, or edema. Objective - Vital Signs Vital signs: Vital Signs Temp 97.9 F 12/14/17 08:30 Pulse 100 12/14/17 08:30 Resp 22 12/14/17 08:30 BP 127/86 12/14/17 08:30 Pulse Ox 98 12/14/17 08:30 Intake & Output 12/13/17 12/14/17 12/14/17 18:59 06:59 18:59 Intake Total 1266 1088 260 Output Total 1845 1210 210 Balance -579 -122 50 Weight 106.8 kg Intake: IV 841 968 60 Aztreonam 2 gm In Sodium 200 100 Chloride 0.9% 100 ml @ 100 mls/hr IVPB Q8HR [facility] Rx#:[id number] Sodium Chloride 0.9% 1, 140 200 60 000 ml @ 20 mls/hr IV . Q24H [facility] Rx#:[id number] Vancomycin 1,750 mg In 501 668 Sodium Chloride 0.9% 500 ml @ 167 mls/hr IVPB Q12H [facility] Rx#:[id number] Oral 425 120 200 Output: Urine 1845 1210 210 Other: Voiding Method Indwelling Catheter Indwelling Catheter - Labs CBC & Chem 7: 12/14/17 05:02 12/14/17 05:02 Labs: Abnormal Lab Results - Last 24 Hours (Table) 12/11/17 12/11/17 12/13/17 Range/Units 04:54 04:54 11:45 RBC (4.30-5.90) m/uL Hgb (13.0-17.5) gm/dL Hct (39.0-53.0) % MCHC (31.0-37.0) g/dL RDW (11.5-15.5) % BUN (9-20) mg/dL POC Glucose (mg/dL) 100 H (75-99) mg/dL Calcium (8.4-10.2) mg/dL Iron 9 L 10 L (65-175) ug/dL TIBC 216 L (228-460) ug/dL Iron Saturation 4.17 L (15.00-50.00) 12/13/17 12/13/17 12/13/17 Range/Units 16:12 17:01 20:55 RBC (4.30-5.90) m/uL Hgb (13.0-17.5) gm/dL Hct (39.0-53.0) % MCHC (31.0-37.0) g/dL RDW (11.5-15.5) % BUN (9-20) mg/dL POC Glucose (mg/dL) 111 H 100 H 103 H (75-99) mg/dL Calcium (8.4-10.2) mg/dL Iron (65-175) ug/dL TIBC (228-460) ug/dL Iron Saturation (15.00-50.00) 12/14/17 12/14/17 Range/Units 05:02 05:02 RBC 3.66 L (4.30-5.90) m/uL Hgb 9.2 L (13.0-17.5) gm/dL Hct 29.9 L (39.0-53.0) % MCHC 30.8 L (31.0-37.0) g/dL RDW 19.7 H (11.5-15.5) % BUN 41 H (9-20) mg/dL POC Glucose (mg/dL) (75-99) mg/dL Calcium 8.1 L (8.4-10.2) mg/dL Iron (65-175) ug/dL TIBC (228-460) ug/dL Iron Saturation (15.00-50.00) Microbiology - Last 24 Hours (Table) 12/10/17 11:38 Blood Culture - Preliminary Blood No Growth after 72 hours Assessment and Plan Plan: Assessment: 1. Nonoliguric acute kidney injury secondary to ATN secondary to cardiorenal syndrome and hypotension. Creatinine 0.92 today. 2. Volume overload. Improving. 3. Systolic CHF with ejection fraction of 20-25%. Status post AICD placement. 4. Hypervolemic hyponatremia. Improved. 5. Insulin-dependent diabetes mellitus. 6. Anemia. Severe iron deficiency noted. 7. Hypotension related to underlying cardiac status. Maintained on midodrine. Cortisol level normal. 8. Left leg abscess maintained on IV antibiotics. Infectious disease following. Plan: Continue Lasix 40 mg IV 3 times daily. 1500 mL fluid restriction. Ferrlecit 125 mg IV daily for 3 days. First dose today. Avoid nephrotoxic agents and hypotensive episodes.
[2017-12-14] MEDS: SODIUM FERRIC GLUCONAT-SUCROSE 125 MG in SODIUM CHLORIDE 0.9% 100 ML IVPB SCH (11:20)
[2017-12-14 12:07] LABS: Glucose,Whole Blood 109 mg/dL (75-99)
[2017-12-14 17:27] LABS: Glucose,Whole Blood 101 mg/dL (75-99)
[2017-12-14 21:19] LABS: Glucose,Whole Blood 132 mg/dL (75-99)
[2017-12-14] MEDS: traMADol 50 MG TAB PO PRN (22:11)
[2017-12-14] MEDS: NON-FORMULARY DRUG (Rosuvastatin Calcium [Crestor] 40 MG) PO SCH (22:11)
[2017-12-14] MEDS: INSULIN DETEMIR 100 UNIT/ML 10 ML VIAL SQ SCH (22:12)
[2017-12-14] MEDS: CLOPIDOGREL 75 MG TAB PO SCH (22:12)
--- NOTE | 2017-12-14 22:23 | XR ---
EXAMINATION TYPE: XR spine complete AP and Lat DATE OF EXAM: 12/14/2017 COMPARISON: 06/20/2016 HISTORY: Pain. Technique 3 views Findings: There is straightening of the cervical spine. Posterior elements are intact. Disc spaces ar e normal. Atlantoaxial facet joint is normal. There are no cervical ribs. IMPRESSION: Mild straightening of the vertebra. No fracture. No change.
--- NOTE | 2017-12-14 22:31 | P.PN ---
Subjective This is a pleasant 41 years old male with past medical history of asthma, coronary artery disease with multiple vessel disease, heart failure, CVA/TIA, diabetes mellitus, GERD, hyperlipidemia, hypertension, osteoarthritis, pneumonia , sleep apnea on CPAP/BiPAP, chronic back pain, migraine, he had no hernia, rotator cuff tear, bronchitis, MRSA infection, he status post AICD, cardiac cath and stent, obesity. He presents because of dyspnea of 2 days' duration, associated with cough and scant phlegm as per patient were nonspecific in color. Associated with some chest tightness however the patient feels that from his shortness of breath. He also complained from diarrhea about 3-4 times yesterday, once today, with no associated abdominal pain no nausea vomiting were patient has epigastric tenderness Patient states that he is taking daptomycin for 2 weeks for now because he was at [facility] at that time heart attack and he needed cardiac pump which got infected and that's why he needed the daptomycin, he is not sure for how long he should be on daptomycin. He has PICC line on his right arm The ED was no noticed to be tachycardic with heart rate 107-112, rest of the vital signs are within normal limits. His WBC 5.9, hemoglobin 9.5, INR 1.4, sodium 132, potassium 4.4, creatinine 0.8, troponin is high at 0.2 (his previous troponins are always elevated between 0.05 and 1.6) UA was unremarkable for infection area from BMP is 11,700. EKG shows paced rhythm at 105 with QTC 433, chest x-ray shows new infiltrate could be related to acute pneumonia on both sides when the heart slightly enlarged. CT of the abdomen and pelvis without contrast showing urinary bladder wall thickening consistent with cystitis and mild ascites, with pleural effusions and cardiomegaly 12/11/2017 I saw and examined the patient today in the ICU, Patient was sent to the ICU overnight for suspicion of hypotension. His systolic blood pressure drops during sleep to 70s, over he goes up when he wakes up. Patient didn't need any pressors. Patient was awakened and in distress, is little bit short of breath and he says he is the same as he came in, No improvement or worsening. No chest pain. No more diarrhea or loose stools since admission. His sodium is down at 130. And creatinine slightly up from 0.8 to 1.1 ID consult is appreciated his antibiotics were changed from daptomycin to vancomycin and aztreonam. 12/12/2017 Patient still in the ICU, he still on dopamine to support his blood pressures and IV Lasix for fluid overload. His kidney function is improved from 1.1 to 0.8. Patient was suspected to have stroke yesterday overnight when he was noticed to have facial drop and lid drop, CT of the head was negative for acute hemorrhage or event. CT in general was also unremarkable. CTA was unremarkable eitherarea patient has patchy ground-glass opacity in both flanks, mostly CHF rather than pneumonia 12/13/2017 Patient still in the ICU, on no pressors , his BP is stable and he is considered to be transfered out of the ICU today to the general medical floor , he is on IV Lasix for fluid overload. His kidney function is improved from 1.1 to 0.8. Patient was suspected to have stroke2 nightsagowhen he was noticed to have facial drop and lid drop, CT of the head was negative for acute hemorrhage or event. CT in general was also unremarkable. CTA was unremarkable either, has patchy ground-glass opacity in both sides, mostly CHF rather than pneumonia 12/14/2017 Patient still feeling better today on no pressors. Vital sustainable. Afebrile. No chest pain. Mild dyspnea. Repeat chest x-ray shows CHF with improving pulmonary edema. Patient's hemoglobin stable but on the low side. Her profiles suggesting iron deficiency anemia. Objective - Vital Signs Vital signs: Vital Signs Temp 97.8 F 12/14/17 16:00 Pulse 95 12/14/17 19:00 Resp 13 12/14/17 19:00 BP 96/66 12/14/17 20:00 Pulse Ox 95 12/14/17 19:00 Intake & Output 12/14/17 12/14/17 12/15/17 06:59 18:59 06:59 Intake Total 1088 1630 387 Output Total 1210 2760 270 Balance -122 -1130 117 Weight 106.8 kg Intake: IV 968 780 187 Aztreonam 2 gm In Sodium 100 Chloride 0.9% 100 ml @ 100 mls/hr IVPB Q8HR [facility] Rx#:[id number] Sodium Chloride 0.9% 1, 200 180 20 000 ml @ 20 mls/hr IV . Q24H [facility] Rx#:[id number] Sodium Ferric Gluconat- 100 Sucrose 125 mg In Sodium Chloride 0.9% 100 ml @ 100 mls/hr IVPB DAILY [facility] Rx#:[id number] Vancomycin 1,750 mg In 668 Sodium Chloride 0.9% 500 ml @ 167 mls/hr IVPB Q12H [facility] Rx#:[id number] Vancomycin 1,750 mg In 500 167 Sodium Chloride 0.9% 500 ml @ 167 mls/hr IVPB Q16H [facility] Rx#:[id number] Oral 120 850 200 Output: Urine 1210 2760 270 Other: Voiding Method Indwelling Catheter Indwelling Catheter Indwelling Catheter - Exam GENERAL: The patient is alert and oriented x3, not in any acute distress. Well developed, well nourished. HEENT: Pupils are round and equally reacting to light. EOMI. No scleral icterus. No conjunctival pallor. Normocephalic, atraumatic. No pharyngeal erythema. No thyromegaly. CARDIOVASCULAR: S1 and S2 present. No murmurs, rubs, or gallops. PULMONARY: Chest is clear to auscultation, no wheezing or crackles. ABDOMEN: Soft, nontender, nondistended, normoactive bowel sounds. No palpable organomegaly. MUSCULOSKELETAL: No joint swelling or deformity. EXTREMITIES: No cyanosis, clubbing, or pedal edema. NEUROLOGICAL: Gross neurological examination did not reveal any focal deficits. SKIN: No rashes. - Labs CBC & Chem 7: 12/14/17 05:02 12/14/17 05:02 Labs: Abnormal Lab Results - Last 24 Hours (Table) 12/14/17 12/14/17 12/14/17 Range/Units 05:02 05:02 12:06 RBC 3.66 L (4.30-5.90) m/uL Hgb 9.2 L (13.0-17.5) gm/dL Hct 29.9 L (39.0-53.0) % MCHC 30.8 L (31.0-37.0) g/dL RDW 19.7 H (11.5-15.5) % BUN 41 H (9-20) mg/dL POC Glucose (mg/dL) 109 H (75-99) mg/dL Calcium 8.1 L (8.4-10.2) mg/dL 12/14/17 12/14/17 Range/Units 17:26 21:09 RBC (4.30-5.90) m/uL Hgb (13.0-17.5) gm/dL Hct (39.0-53.0) % MCHC (31.0-37.0) g/dL RDW (11.5-15.5) % BUN (9-20) mg/dL POC Glucose (mg/dL) 101 H 132 H (75-99) mg/dL Calcium (8.4-10.2) mg/dL Microbiology - Last 24 Hours (Table) 12/10/17 11:38 Blood Culture - Preliminary Blood No Growth after 96 hours Assessment and Plan Assessment: possible pneumonia Possible cystitis with thickened wall Diarrhea with some epigastric discomfort, could be reactive versus gastroenteritis Cardiomegaly with pleural effusions coronary artery disease with multiple vessel disease, he is status post AICD, cardiac cath and stent, heart failure chronically elevated troponin asthma CVA/TIA diabetes mellitus GERD hyperlipidemia hypertension sleep apnea on CPAP/BiPAP chronic back pain migraine h/o rotator cuff tear obesity U TIA/CVA, with right sided weakness and numbness, resolved Plan: Continue with the same treatment, continue symptomatic treatment. Resume home medication including insulin and pressure medication. Patient is on vancomycin and aztreonam for AICD infection as per patient. ID input is appreciated.cardiology consult is appreciated for chest tightness and positive troponins, history of CHF. sent for sputum culture on blood culture. Consult for pulmonary. Continue with aspirin and Plavix. Lasix was increased to 40 twice a day, .he feels the head and CTA were unremarkable. And DVT and GI prophylaxis. Also patient has drop in hemoglobin from 9.5 to 8.5, iron studies : Possible SALVATORE, B12 and FOBT: Pending. GI consult: Pending INR 1.4 0 Monocryl follow-up INR Further recommendations based on the course of the patient's DVT prophylaxis on heparin GI prophylaxis on Pepcid PT/OT: Pending Prognosis is guarded
--- NOTE | 2017-12-14 22:38 | P.PN ---
Subjective Progress Note Date: 12/14/17 41-year-old male presented to hospital with chest pain and progressive shortness of breath poor exercise tolerance generalized malaise and symptoms with nausea, some dry heaves. He does relate that he had a minimal cough with some aching much sputum production was feeling progressively worse. At the present to the emergency center and was admitted for treatment of underlying coronary artery disease. The patient has a extensive past medical history with coronary artery disease, AK stroke diabetes hypertension and cardiac dysrhythmia. Apparently 2 years ago patient suffered from Myocardial infarction at that point time requiring AICD replaced. Recently hospitalized at outside facility and there he had evidence of difficulties with abscess to his left leg from the data that we have so far the patient was bacteremic and is now being treated with daptomycin and high-dose with overall goal for salvage of his AICD. The patient presented to this facility with chest pain and shortness of breath and cough, is feeling somewhat more poorly and infectious disease consult was requested regarding his antibiotic therapy. The patient does feel poorly and the nursing staff relates that he is not feeling as well today as he was even a day ago. 12/11/2017 patient was moved to ICU due to chest pain and now feeling slightly better but has developed nausea and emesis, but not hypotension. 12/14/2017 patient has improved and is no longer ICU patient, has had effective diuresis and feels much better is anticipating discharge soon. Afebrile and denies new syptoms. Objective - Vital Signs Vital signs: Vital Signs Temp 97.8 F 12/14/17 16:00 Pulse 95 12/14/17 19:00 Resp 13 12/14/17 19:00 BP 96/66 12/14/17 20:00 Pulse Ox 95 12/14/17 19:00 Intake & Output 12/14/17 12/14/17 12/15/17 06:59 18:59 06:59 Intake Total 1088 1630 387 Output Total 1210 2760 270 Balance -122 -1130 117 Weight 106.8 kg Intake: IV 968 780 187 Aztreonam 2 gm In Sodium 100 Chloride 0.9% 100 ml @ 100 mls/hr IVPB Q8HR [facility] Rx#:[id number] Sodium Chloride 0.9% 1, 200 180 20 000 ml @ 20 mls/hr IV . Q24H [facility] Rx#:[id number] Sodium Ferric Gluconat- 100 Sucrose 125 mg In Sodium Chloride 0.9% 100 ml @ 100 mls/hr IVPB DAILY [facility] Rx#:[id number] Vancomycin 1,750 mg In 668 Sodium Chloride 0.9% 500 ml @ 167 mls/hr IVPB Q12H [facility] Rx#:[id number] Vancomycin 1,750 mg In 500 167 Sodium Chloride 0.9% 500 ml @ 167 mls/hr IVPB Q16H [facility] Rx#:[id number] Oral 120 850 200 Output: Urine 1210 2760 270 Other: Voiding Method Indwelling Catheter Indwelling Catheter Indwelling Catheter - Exam 41-year-old male who appears considerably older than his stated age. Patient is not diaphoretic and is not in acute distress but does state he feels poorly HEENT: Anicteric conjunctiva are pink and moist nasal mucosa grossly intact without significant lesions, there is no thrush. Neck: The neck is supple without significant lymphadenopathy or thyromegaly. Lungs: Symmetrical air entry is noted, basilar crackles resolved a few expiratory wheezes are scattered no acute bronchial sounds no dullness or egophony Heart: Regular without audible S1 and S2 no S3 soft S4 no murmur click or rub Abdomen: Obese, Positive bowel sounds soft and nontender without palpable masses or organomegaly. There was no guarding or rebound. Extremities: Upper extremities intact IV sites intact. PICC line left arm without tenderness erythema crepitus or fluctuance. Lower extremities have some trace edema. The abscess on the left calf area is nearly resolved only minimal erythema evidence of granulation no ascending erythema no fluctuance or necrosis Neuro: Awake alert oriented to person place and time. There are no acute new gross focal sensory motor deficits. - Labs CBC & Chem 7: 12/14/17 05:02 12/14/17 05:02 Labs: Abnormal Lab Results - Last 24 Hours (Table) 12/14/17 12/14/17 12/14/17 Range/Units 05:02 05:02 12:06 RBC 3.66 L (4.30-5.90) m/uL Hgb 9.2 L (13.0-17.5) gm/dL Hct 29.9 L (39.0-53.0) % MCHC 30.8 L (31.0-37.0) g/dL RDW 19.7 H (11.5-15.5) % BUN 41 H (9-20) mg/dL POC Glucose (mg/dL) 109 H (75-99) mg/dL Calcium 8.1 L (8.4-10.2) mg/dL 12/14/17 12/14/17 Range/Units 17:26 21:09 RBC (4.30-5.90) m/uL Hgb (13.0-17.5) gm/dL Hct (39.0-53.0) % MCHC (31.0-37.0) g/dL RDW (11.5-15.5) % BUN (9-20) mg/dL POC Glucose (mg/dL) 101 H 132 H (75-99) mg/dL Calcium (8.4-10.2) mg/dL Microbiology - Last 24 Hours (Table) 12/10/17 11:38 Blood Culture - Preliminary Blood No Growth after 96 hours Laboratory Results WBC 6.2 k/uL (3.8-10.6) 12/14/17 05:02 RBC 3.66 m/uL (4.30-5.90) L 12/14/17 05:02 Hgb 9.2 gm/dL (13.0-17.5) L 12/14/17 05:02 Hct 29.9 % (39.0-53.0) L 12/14/17 05:02 MCV 81.5 fL (80.0-100.0) 12/14/17 05:02 MCH 25.1 pg (25.0-35.0) 12/14/17 05:02 MCHC 30.8 g/dL (31.0-37.0) L 12/14/17 05:02 RDW 19.7 % (11.5-15.5) H 12/14/17 05:02 Plt Count 332 k/uL (150-450) 12/14/17 05:02 Neutrophils % 61 % 12/14/17 05:02 Neutrophils % (Manual) 66 % 12/13/17 06:30 Band Neutrophils % 1 % 12/13/17 06:30 Lymphocytes % 21 % 12/14/17 05:02 Lymphocytes % (Manual) 19 % 12/13/17 06:30 Monocytes % 5 % 12/14/17 05:02 Monocytes % (Manual) 7 % 12/13/17 06:30 Eosinophils % 12 % 12/14/17 05:02 Eosinophils % (Manual) 7 % 12/13/17 06:30 Basophils % 0 % 12/14/17 05:02 Metamyelocytes % 2 % 12/13/17 06:30 Neutrophils # 3.8 k/uL (1.3-7.7) 12/14/17 05:02 Neutrophils # (Manual) 3.60 k/uL (1.3-7.7) 12/13/17 06:30 Lymphocytes # 1.3 k/uL (1.0-4.8) 12/14/17 05:02 Lymphocytes # (Manual) 1.03 k/uL (1.0-4.8) 12/13/17 06:30 Monocytes # 0.3 k/uL (0-1.0) 12/14/17 05:02 Monocytes # (Manual) 0.38 k/uL (0-1.0) 12/13/17 06:30 Eosinophils # 0.7 k/uL (0-0.7) 12/14/17 05:02 Eosinophils # (Manual) 0.38 k/uL (0-0.7) 12/13/17 06:30 Basophils # 0.0 k/uL (0-0.2) 12/14/17 05:02 Metamyelocytes # (Man) 0.11 k/uL (0) H 12/13/17 06:30 Nucleated RBCs 0 /100 WBC (0-0) 12/13/17 06:30 Polychromasia Present 12/13/17 06:30 Hypochromasia Marked 12/14/17 05:02 Poikilocytosis Slight 12/14/17 05:02 Anisocytosis Slight 12/14/17 05:02 Microcytosis Slight 12/14/17 05:02 PT 11.6 sec (9.0-12.0) 12/13/17 06:30 INR 1.2 (<1.2) H 12/13/17 06:30 APTT 26.2 sec (22.0-30.0) 12/12/17 05:30 VBG pH 7.47 (7.31-7.41) H 12/09/17 21:16 VBG pCO2 26 mmHg (37-51) L 12/09/17 21:16 VBG HCO3 19 mmol/L (24-28) L 12/09/17 21:16 Sodium 137 mmol/L (137-145) 12/14/17 05:02 Potassium 3.8 mmol/L (3.5-5.1) 12/14/17 05:02 Chloride 105 mmol/L (98-107) 12/14/17 05:02 Carbon Dioxide 26 mmol/L (22-30) 12/14/17 05:02 Anion Gap 6 mmol/L 12/14/17 05:02 BUN 41 mg/dL (9-20) H 12/14/17 05:02 Creatinine 0.92 mg/dL (0.66-1.25) 12/14/17 05:02 Est GFR (CKD-EPI)AfAm >90 (>60 ml/min/1.73 sqM) 12/14/17 05:02 Est GFR (CKD-EPI)NonAf >90 (>60 ml/min/1.73 sqM) 12/14/17 05:02 Glucose 77 mg/dL (74-99) 12/14/17 05:02 POC Glucose (mg/dL) 132 mg/dL (75-99) H 12/14/17 21:09 POC Glu Bulb Filler ID Jocelin Reyna 12/14/17 21:09 Plasma Lactic Acid [place] 1.6 mmol/L (0.7-2.0) 12/10/17 20:22 Calcium 8.1 mg/dL (8.4-10.2) L 12/14/17 05:02 Phosphorus 3.5 mg/dL (2.5-4.5) 12/13/17 06:30 Magnesium 1.9 mg/dL (1.6-2.3) 12/14/17 05:02 Iron 10 ug/dL (65-175) L 12/11/17 04:54 TIBC 216 ug/dL (228-460) L 12/11/17 04:54 Iron Saturation 4.17 (15.00-50.00) L 12/11/17 04:54 Ferritin 143.7 ng/mL (22.0-322.0) 12/11/17 04:54 Total Bilirubin 1.0 mg/dL (0.2-1.3) 07/18/18 21:16 AST 25 U/L (17-59) 12/09/17 21:16 ALT 45 U/L (21-72) 12/09/17 21:16 Alkaline Phosphatase 197 U/L (38-126) H 12/09/17 21:16 Troponin I 0.188 ng/mL (0.000-0.034) H* 12/12/17 05:30 NT-Pro-B Natriuret Pep 84193 pg/mL 12/09/17 21:16 Total Protein 5.2 g/dL (6.3-8.2) L 12/09/17 21:16 Albumin 2.6 g/dL (3.5-5.0) L 12/09/17 21:16 Lipase 181 U/L (23-300) 12/09/17 21:16 Vitamin B12 882.0 pg/mL (200.0-944.0) 12/11/17 04:54 Folate 8.1 ng/mL 12/11/17 04:54 Cortisol 21 ug/dL 12/12/17 05:30 Urine Color Yellow 12/11/17 05:20 Urine Appearance Cloudy (Clear) 12/11/17 05:20 Urine pH 5.5 (5.0-8.0) 12/11/17 05:20 Ur Specific [place] 1.017 (1.001-1.035) 12/11/17 05:20 Urine Protein 1+ (Negative) H 12/11/17 05:20 Urine Glucose (UA) Negative (Negative) 12/11/17 05:20 Urine Ketones Negative (Negative) 12/11/17 05:20 Urine Blood Negative (Negative) 12/11/17 05:20 Urine Nitrite Negative (Negative) 12/11/17 05:20 Urine Bilirubin 1+ (Negative) H 12/11/17 05:20 Urine Urobilinogen 8.0 mg/dL (<2.0) 12/11/17 05:20 Ur Leukocyte Esterase Negative (Negative) 12/11/17 05:20 Urine RBC <1 /hpf (0-5) 12/11/17 05:20 Urine WBC 7 /hpf (0-5) H 12/11/17 05:20 Amorphous Sediment Rare /hpf (None) H 12/11/17 05:20 Hyaline Casts 22 /lpf (0-2) H 12/11/17 05:20 Urine Mucus Occasional /hpf (None) H 12/11/17 05:20 Vancomycin Trough 21.0 ug/mL 12/13/17 06:30 Urine Opiates Screen Not Detected (NotDetected) 12/09/17 22:47 Ur Oxycodone Screen Not Detected (NotDetected) 12/09/17 22:47 Urine Methadone Screen Not Detected (NotDetected) 12/09/17 22:47 Ur Propoxyphene Screen Not Detected (NotDetected) 12/09/17 22:47 Ur Barbiturates Screen Detected (NotDetected) H 12/09/17 22:47 U Tricyclic Antidepress Not Detected (NotDetected) 12/09/17 22:47 Ur Phencyclidine Scrn Not Detected (NotDetected) 12/09/17 22:47 Ur Amphetamines Screen Not Detected (NotDetected) 12/09/17 22:47 U Methamphetamines Scrn Not Detected (NotDetected) 12/09/17 22:47 U Benzodiazepines Scrn Not Detected (NotDetected) 12/09/17 22:47 Urine Cocaine Screen Not Detected (NotDetected) 12/09/17 22:47 U Marijuana (THC) Screen Not Detected (NotDetected) 12/09/17 22:47 Serum Alcohol <10 mg/dL 12/09/17 21:16 Microbiology 12/10/17 11:38 Blood Blood Culture - Preliminary No Growth after 96 hours 12/11/17 05:20 Urine,Catheterized Urine Culture - Final 12/09/17 22:47 Urine,Voided Urine Culture - Final - Imaging and Cardiology Chest x-ray: report reviewed, image reviewed (Improved CHF) Assessment and Plan (1) AICD (automatic cardioverter/defibrillator) present Current Visit: No Status: Acute Code(s): Z95.810 - PRESENCE OF AUTOMATIC ( IMPLANTABLE) CARDIAC DEFIBRILLATOR SNOMED Code(s): 169819105 (2) Cardiomyopathy Current Visit: Yes Status: Acute Code(s): I42.9 - CARDIOMYOPATHY, UNSPECIFIED SNOMED Code(s): 88259692 (3) Bacteremia Narrative/Plan: 41-year-old male that has an extensive past medical history of cardiovascular disease. Has an AICD placed a few years ago was recently hospitalized an outside hospital, there there was concerns to bacteremia likely from the abscess to the left leg. It appears to goal with salvage of the AICD he was placed on high-dose daptomycin. The patient are developed some chest pain increasing shortness of breath some cough generalized malaise and nausea and presented to our facility. With a significant cardiac history concerns to further cardiac disease and has been admitted. X-rays are mildly abnormal potential for pneumonia also exists. Daptomycin is not routinely used for pneumonia, may be effective for those that have endocarditis and pulmonary infiltrates, but for other pneumonias is not highly effective and consequently we'll alter to vancomycin at this time. Given the level illness will also adding gram-negative coverage with this many ALLERGIES Azactam will be added. Cultures are processing he will be followed. Outside data he has been requested patient to sign release of information to evaluate outside cultures and to evaluate the infectious diseases consultations to assist with the overall plan especially discharge planning. The patient is acutely ill and there is concerns for his deterioration. 12/11/2017 the patient did worsen overnight became more short of breath and even developed some nausea and has had some emesis today. I have a high-grade fever. But does feel quite poorly. With his nausea some Zofran is requested and does give him some relief. Continue antibiotic therapy this time with vancomycin and Azactam with concerns for potential pneumonia for which the daptomycin would not treat. Await cultures to ensure that we do not need to continue with gram-negative therapy. The patient does have a significant ischemic cardiac myopathy and AICD is in place. We are awaiting the records from [facility] to determine the pathogen, and course of therapy that was directed at that stay. Cultures for further help direct his therapy. 12/14/2017 outside data is yet to be obtained help clarify his course of antibiotic therapy. Cardiology and pulmonary critical care has been following and he's had an acute exacerbation of systolic congestive heart failure and has had improvement of symptoms with his diuresis, has lost 5.2 kg. His symptoms of chest pain have resolved his nausea and emesis have resolved and is feeling considerably better. With his diuresis and alteration of his antibiotic therapy there is no marked improvement. We'll likely need to contact [facility] for further information before his discharge to ensure the change of antibiotic therapy vancomycin is even an option for his prior event which appears to be bacteremia. Unclear if he had a vancomycin resistant pathogen or daptomycin was chosen because of less toxicity. Current Visit: Yes Status: Acute Code(s): R78.81 - BACTEREMIA SNOMED Code( s): 2723182
[2017-12-15 05:56] LABS: Anisocytosis Slight; Basophils % (A) 1 %; Eosinophils # (A) 0.6 k/uL (0-0.7); Eosinophils % (A) 9 %; HCT 30.7 % (39.0-53.0); HGB 9.5 gm/dL (13.0-17.5); Hypochromasia Marked; Lymphocytes # (A) 1.5 k/uL (1.0-4.8); Lymphocytes % (A) 24 %; MCH 25.2 pg (25.0-35.0); MCHC 30.9 g/dL (31.0-37.0); MCV 81.6 fL (80.0-100.0); Mean Platelet Volume 7.5; Microcytosis Slight; Monocytes # (A) 0.4 k/uL (0-1.0); Monocytes % (A) 6 %; Neutrophils # (A) 3.7 k/uL (1.3-7.7); Neutrophils % (A) 59 %; Platelet Count 350 k/uL (150-450); Poikilocytosis Slight; RBC 3.77 m/uL (4.30-5.90); RDW 19.6 % (11.5-15.5); WBC 6.2 k/uL (3.8-10.6)
[2017-12-15 06:05] LABS: Glucose,Whole Blood 62 mg/dL (75-99)
[2017-12-15 06:05] LABS: Anion Gap 6 mmol/L; Blood Urea Nitrogen 32 mg/dL (9-20); Calcium 8.2 mg/dL (8.4-10.2); Carbon Dioxide 27 mmol/L (22-30); Chloride 103 mmol/L (98-107); Glucose 51 mg/dL (74-99); Potassium 3.6 mmol/L (3.5-5.1); Sodium 136 mmol/L (137-145)
[2017-12-15 06:19] LABS: Glucose,Whole Blood 64 mg/dL (75-99)
[2017-12-15] MEDS: FUROSEMIDE 10 MG/ML 4 ML VIAL IV SCH ×2 (06:31→09:02)
[2017-12-15] MEDS: INSULIN ASPART 100 UNIT/ML 1 ML 10 ML VIAL SQ SCH ×7 (06:32→21:39)
[2017-12-15] MEDS: SODIUM CHLORIDE 0.9% 1,000 ML IV SCH (06:34)
[2017-12-15] MEDS: MIDODRINE 5 MG TAB PO SCH ×3 (06:34→16:26)
[2017-12-15 06:38] LABS: Glucose,Whole Blood 95 mg/dL (75-99)
[2017-12-15 06:45] LABS: Ovalocytes Present; Target Cells Present
[2017-12-15 07:06] LABS: Glucose,Whole Blood 115 mg/dL (75-99)
[2017-12-15] MEDS: METOPROLOL SUCCINATE (ER) 25 MG TAB.ER.24H PO SCH (09:02)
[2017-12-15] MEDS: AZTREONAM 2 GM in SODIUM CHLORIDE 0.9% 100 ML IVPB SCH ×3 (09:02→22:44)
[2017-12-15] MEDS: ASPIRIN 325 MG TAB PO SCH (09:02)
[2017-12-15] MEDS: FAMOTIDINE 20 MG TAB PO SCH ×2 (09:03→21:39)
[2017-12-15] MEDS: HEPARIN SODIUM,PORCINE 5,000 UNIT/ML 1 ML VIAL SQ SCH ×2 (09:03→21:39)
--- NOTE | 2017-12-15 10:50 | P.CONS ---
History of Present Illness - Reason for Consult Consult date: 12/15/17 Iron deficiency anemia Requesting physician: Ricardo E Sheet - History of Present Illness 41-year-old male with an extensive cardiac history including multiple heart catheterizations for multivessel CAD maintained on aspirin Plavix, AICD, multiple PTCA stenting most recently at [facility] earlier this month. Cardiomyopathy EF between 40-45%, hypertension, GERD, suicide attempts, and SHELIA. Patient was evaluated by the GI service December 03 for anemia. He underwent EGD colonoscopy on December 05 with findings of Diaz's esophagus colonoscopy was within normal limits. He was readmitted 6 days ago with acute CHF shortness of breath left lower extremity wound abscess possible pneumonia. Receiving IV antibiotics via PICC line with hope to preserve his AICD. He was previously hospitalized at an outside facility within the past month for bacteremia. Infectious disease following. Receiving IV vancomycin and Azactam. Consult requested for iron deficiency anemia. Most recent iron indices iron 9. Iron saturation 4%. TIBC 216. Ferritin 143. Stool occult blood was positive on December 03 prior to endoscopy. Presently denies abdominal pain tolerating a regular diet. Hospital medications reviewed presently on but not limited to full strength aspirin, Plavix, heparin subcutaneous. Urine culture no growth. Preliminary blood culture no growth. Review of Systems Constitutional: Denies fever, chills, sweats, weight gain, or loss. HEENT: Negative for migraines, blurred vision or loss, earaches, drainage, tinnitus, oral mucosal lesions, dysphagia, or odynophagia. Cardiac: Admitted with chest pain denies pain, arrhythmias, or palpitation. Respiratory: Admitted with shortness of breath denies, hemoptysis, cough, or sputum production. Gastrointestinal: See HPI for pertinent findings. Genitourinary: Negative for hematuria, urgency, frequency, polyuria, dysuria, or penile discharge. Musculoskeletal: Negative for muscle aches, swelling, arthritis, and arthralgias. Neurologic: Negative for stroke or TIA. Endocrine: Negative for thyroid problems. Skin: Negative for rash or itching. Psychiatric: Negative history for depression and anxiety Past Medical History Past Medical History: Asthma, Coronary Artery Disease (CAD), Chest Pain / Angina , Heart Failure, CVA/TIA, Diabetes Mellitus, GERD/Reflux, Hyperlipidemia, Hypertension, Myocardial Infarction (ND), Osteoarthritis (OA), Pneumonia, Skin Disorder, Sleep Apnea/CPAP/BIPAP Additional Past Medical History / Comment(s): multiple vessel CAD, ischemic cardiomyopathy, diabetic neuropathy bilateral hands and feet, hypertensive cardiovascular disease, SHELIA with no device, chronic gastritis, degenerative disc disease, chronic back pain, depression with hx of suicide attempts, gastroparesis, psoriasis, UTI, migraines, TIA, PUD, hiatal hernia, L rotator cuff tear, bronchitis, pseudoaneurysm L groin post procedure. Last Myocardial Infarction Date:: May 2017 History of Any Multi-Drug Resistant Organisms: MRSA Year Discovered:: 11/05/2017 (Culture done at [facility]) MDRO Source:: legs Past Surgical History: AICD, Appendectomy, Cholecystectomy, Heart Catheterization With Stent, Hernia Repair Additional Past Surgical History / Comment(s): Pt has had multiple cardiac procedures- caths/stents/PTCA, last stent placed at [facility] - May 2017, S[place]H, R inguinal hernia repair, umbilical hernia repair, right orchiectomy due to necrosis, right hand surgery r/t injury, colonoscopy, cystoscopy ( scraped bladder parrish) Past Anesthesia/Blood Transfusion Reactions: No Reported Reaction Additional Past Anesthesia/Blood Transfusion Reaction / Comm: . Date of Last Stent Placement:: 05/25/2017 Type of Cardiac Device: Biventricular Pacemaker, AICD Device Placement Date:: 09/19/15 Past Psychological History: Anxiety, Depression, PTSD Smoking Status: Never smoker Past Alcohol Use History: None Reported Past Drug Use History: None Reported - Past Family History Mother Family Medical History: Coronary Artery Disease (CAD), Myocardial Infarction (ND ) Additional Family Medical History / Comment(s): 7 ND and faulty heart valve. Pt does not know the age when mother had her ND's. Father History Unknown: Yes Additional Family Medical History / Comment(s): Does not know who father is. Brother(s) Family Medical History: Cancer, Congestive Heart Failure (CHF), Myocardial Infarction (ND) Additional Family Medical History / Comment(s): Parkinsons. Pt does not know at what age his brother had an ND. Patient's other brother has lung CA Patient has Family Medical History: No Reported History Additional Family Medical History / Comment(s): There is a strong family history for heart disease, hypertension, and diabetes. Medications and Allergies Home Medications Medication Instructions Recorded Confirmed Type Aspirin 81 mg PO DAILY chew 07/27/17 12/09/17 Rx Gabapentin [Neurontin] 400 mg PO TID cap 07/27/17 12/09/17 Rx Nitroglycerin Sl Tabs [Nitrostat] 0.4 mg SUBLINGUAL Q5M PRN tab 07/27/17 Rx ARIPiprazole [ARIPiprazole Odt] 15 mg PO HS 10/27/17 12/09/17 History Ranitidine HCl 300 mg PO DAILY 10/27/17 12/09/17 History Rosuvastatin Calcium [Crestor] 40 mg PO HS 10/27/17 12/09/17 History Clopidogrel [Plavix] 75 mg PO HS 12/03/17 12/09/17 History DAPTOmycin [Cubicin] 850 mg IV DAILY 12/03/17 12/09/17 History Ferrous Sulfate [Iron (65 MG 325 mg PO BID 12/03/17 12/09/17 History Elemental)] Furosemide [Lasix] 40 mg PO DAILY 12/03/17 12/09/17 History Insulin Aspart [NovoLOG 9 unit SQ TID 12/03/17 12/09/17 History (formulary)] Insulin Glargine [Lantus] 27 unit SQ HS 12/03/17 12/09/17 History Lisinopril [Zestril] 5 mg PO DAILY 12/03/17 12/09/17 History Metoprolol Succinate [Toprol XL] 25 mg PO DAILY 12/03/17 12/09/17 History Primidone [Mysoline] 500 mg PO BID 12/03/17 12/09/17 History Sertraline [Zoloft] 200 mg PO DAILY 12/05/17 12/09/17 History Allergies Allergy/AdvReac Type Severity Reaction Status Date / Time erythromycin base Allergy Severe Rash/Hives Verified 12/09/17 21:16 [Erythromycin Base] cephalexin monohydrate Allergy Unknown Rash/Hives Verified 12/09/17 21:16 [From Keflex] codeine Allergy Unknown Unknown Verified 12/09/17 21:16 meclizine Allergy Unknown Unknown Verified 12/09/17 21:16 Penicillins Allergy Unknown Rash/Hives Verified 12/09/17 21:16 shellfish derived Allergy Unknown Anaphylaxis Verified 12/09/17 21:16 Fish Containing Products Allergy Anaphylaxis Verified 12/09/17 21:16 [Fish] Iodinated Contrast- Oral and Allergy Anaphylaxis Verified 12/09/17 21:16 IV Dye naproxen AdvReac Unknown Compromises Verified 12/09/17 21:16 Kidney Function atorvastatin calcium AdvReac Myalgia Verified 12/09/17 21:16 [From Lipitor] hydrocodone [From [place]] AdvReac Rapid Verified 12/09/17 21:16 Heart Rate Physical Exam Vitals: Vital Signs Temp Pulse Pulse Resp BP BP Pulse Ox 12/15/17 09:05 97.5 F L 105 H 16 124/90 96 12/15/17 04:00 97.4 F L 98 18 127/79 92 L 12/15/17 00:00 97.9 F 101 H 17 118/85 96 12/14/17 20:00 98.6 F 96 18 96/66 112/81 93 L 12/14/17 19:00 95 13 95 12/14/17 18:00 103 H 18 128/86 95 12/14/17 17:00 94 24 93 L 12/14/17 16:30 19 12/14/17 16:00 97.8 F 87 19 106/65 95 12/14/17 15:00 95 17 99/65 94 L 12/14/17 14:00 96 21 107/69 94 L 12/14/17 13:00 94 21 122/87 97 12/14/17 12:03 19 12/14/17 12:00 97 F L 99 19 107/71 98 12/14/17 11:45 91 19 112/75 96 12/14/17 11:30 103 H 20 120/77 96 12/14/17 11:00 104 H 17 120/77 97 Intake and Output 12/14/17 12/15/17 12/15/17 22:59 06:59 14:59 Intake Total 1377 Output Total 1235 250 Balance 142 -250 Intake: IV 727 Sodium Chloride 0.9% 1, 60 000 ml @ 20 mls/hr IV . Q24H JAKE Rx#:[id number] Vancomycin 1,750 mg In 667 Sodium Chloride 0.9% 500 ml @ 167 mls/hr IVPB Q16H JAKE Rx#:[id number] Oral 650 Output: Urine 1235 250 Other: Voiding Method Indwelling Catheter Indwelling Catheter # Voids 1 Weight 84 kg General appearance: The patient is alert, oriented, in no acute distress. HET: Head is normocephalic and atraumatic. Pupils are equal and reactive. Oropharynx is clear without lesions. Neck: Supple without lymphadenopathy. Trachea midline. Heart: S1 S2. Regular rate and rhythm. Lungs: No crackles or wheezes are heard. Abdomen: Soft, nontender, nondistended with bowel sounds. No peritoneal signs. No palpable organomegaly or masses. Extremities: PICC line right upper extremity without erythema or drainage. Normal skin color and turgor. No cyanosis, rash, ulceration, clubbing, or edema. Radial and pedal pulses are 2/4 bilaterally. Neurological: No focal deficits. Strength and sensation are grossly intact. Results CBC & Chem 7: 12/15/17 05:34 12/15/17 05:34 Labs: Abnormal Lab Results - Last 24 Hours (Table) 12/14/17 12/14/17 12/14/17 Range/Units 12:06 17:26 21:09 RBC (4.30-5.90) m/uL Hgb (13.0-17.5) gm/dL Hct (39.0-53.0) % MCHC (31.0-37.0) g/dL RDW (11.5-15.5) % Sodium (137-145) mmol/L BUN (9-20) mg/dL Glucose (74-99) mg/dL POC Glucose (mg/dL) 109 H 101 H 132 H (75-99) mg/dL Calcium (8.4-10.2) mg/dL 12/15/17 12/15/17 12/15/17 Range/Units 05:34 05:34 06:04 RBC 3.77 L (4.30-5.90) m/uL Hgb 9.5 L (13.0-17.5) gm/dL Hct 30.7 L (39.0-53.0) % MCHC 30.9 L (31.0-37.0) g/dL RDW 19.6 H (11.5-15.5) % Sodium 136 L (137-145) mmol/L BUN 32 H (9-20) mg/dL Glucose 51 L (74-99) mg/dL POC Glucose (mg/dL) 62 L (75-99) mg/dL Calcium 8.2 L (8.4-10.2) mg/dL 12/15/17 12/15/17 Range/Units 06:18 06:54 RBC (4.30-5.90) m/uL Hgb (13.0-17.5) gm/dL Hct (39.0-53.0) % MCHC (31.0-37.0) g/dL RDW (11.5-15.5) % Sodium (137-145) mmol/L BUN (9-20) mg/dL Glucose (74-99) mg/dL POC Glucose (mg/dL) 64 L 115 H (75-99) mg/dL Calcium (8.4-10.2) mg/dL Microbiology - Last 24 Hours (Table) 12/10/17 11:38 Blood Culture - Preliminary Blood No Growth after 96 hours Assessment and Plan (1) Iron deficiency anemia Narrative/Plan: 41-year-old male with extensive cardiac history AICD left lower extremity wound admitted with CHF possible pneumonia recent hospitalization for bacteremia receiving IV antibiotic therapy in hopes to salvage AICD with persistent normocytic chromic anemia without overt bleeding. Recent EGD colonoscopy evaluation 10 days ago for evaluation of anemia and positive Hemoccult indicated Diaz's esophagus, colonoscopy within normal limits. Underlying small bowel source of anemia cannot be excluded. Current Visit: Yes Status: Acute Code(s): D50.9 - IRON DEFICIENCY ANEMIA, UNSPECIFIED SNOMED Code(s): 29429121 (2) Bacteremia Current Visit: Yes Status: Acute Code(s): R78.81 - BACTEREMIA SNOMED Code( s): 8493195 (3) Leg wound, left Current Visit: Yes Status: Acute Code(s): S81.802A - UNSPECIFIED OPEN WOUND , LEFT LOWER LEG, INITIAL ENCOUNTER SNOMED Code(s): 097122939 (4) Cardiomyopathy Current Visit: Yes Status: Acute Code(s): I42.9 - CARDIOMYOPATHY, UNSPECIFIED SNOMED Code(s): 24549443 (5) Congestive heart failure Current Visit: Yes Status: Acute Code(s): I50.9 - HEART FAILURE, UNSPECIFIED SNOMED Code(s): 73127988 (6) AICD (automatic cardioverter/defibrillator) present Current Visit: No Status: Acute Code(s): Z95.810 - PRESENCE OF AUTOMATIC ( IMPLANTABLE) CARDIAC DEFIBRILLATOR SNOMED Code(s): 867499525 (7) CAD (coronary artery disease) Current Visit: Yes Status: Acute Code(s): I25.10 - ATHSCL HEART DISEASE OF [place] RESERVATION CORONARY ARTERY W/O ANG PCTRS SNOMED Code(s): 29913226 Plan: 1. Capsule endoscopy tomorrow. Iron therapy discussed will advise further after endoscopy study is reviewed. Continue with dual antiplatelet therapy secondary to recent stenting. 2. Clear liquid diet for dinner followed by nothing by mouth after midnight. The agile tester has discussed the risks, benefits and alternative therapies for the above-mentioned procedure and for both sedation/analgesia as well as necessary blood product administration, if indicated, as they pertain to this patient. The patient has indicated understanding and acceptance of the risks and procedures discussed. Thank you for this kind referral and the opportunity to participate in the care of your patient. This consultation was discussed with Dr. Barney. The impression and plan of care have been directed as dictated.
--- NOTE | 2017-12-15 11:10 | P.PN ---
Subjective This is a pleasant 41 years old male with past medical history of asthma, coronary artery disease with multiple vessel disease, heart failure, CVA/TIA, diabetes mellitus, GERD, hyperlipidemia, hypertension, osteoarthritis, pneumonia , sleep apnea on CPAP/BiPAP, chronic back pain, migraine, he had no hernia, rotator cuff tear, bronchitis, MRSA infection, he status post AICD, cardiac cath and stent, obesity. He presents because of dyspnea of 2 days' duration, associated with cough and scant phlegm as per patient were nonspecific in color. Associated with some chest tightness however the patient feels that from his shortness of breath. He also complained from diarrhea about 3-4 times yesterday, once today, with no associated abdominal pain no nausea vomiting were patient has epigastric tenderness Patient states that he is taking daptomycin for 2 weeks for now because he was at [facility] at that time heart attack and he needed cardiac pump which got infected and that's why he needed the daptomycin, he is not sure for how long he should be on daptomycin. He has PICC line on his right arm The ED was no noticed to be tachycardic with heart rate 107-112, rest of the vital signs are within normal limits. His WBC 5.9, hemoglobin 9.5, INR 1.4, sodium 132, potassium 4.4, creatinine 0.8, troponin is high at 0.2 (his previous troponins are always elevated between 0.05 and 1.6) UA was unremarkable for infection area from BMP is 11,700. EKG shows paced rhythm at 105 with QTC 433, chest x-ray shows new infiltrate could be related to acute pneumonia on both sides when the heart slightly enlarged. CT of the abdomen and pelvis without contrast showing urinary bladder wall thickening consistent with cystitis and mild ascites, with pleural effusions and cardiomegaly 12/11/2017 I saw and examined the patient today in the ICU, Patient was sent to the ICU overnight for suspicion of hypotension. His systolic blood pressure drops during sleep to 70s, over he goes up when he wakes up. Patient didn't need any pressors. Patient was awakened and in distress, is little bit short of breath and he says he is the same as he came in, No improvement or worsening. No chest pain. No more diarrhea or loose stools since admission. His sodium is down at 130. And creatinine slightly up from 0.8 to 1.1 ID consult is appreciated his antibiotics were changed from daptomycin to vancomycin and aztreonam. 12/12/2017 Patient still in the ICU, he still on dopamine to support his blood pressures and IV Lasix for fluid overload. His kidney function is improved from 1.1 to 0.8. Patient was suspected to have stroke yesterday overnight when he was noticed to have facial drop and lid drop, CT of the head was negative for acute hemorrhage or event. CT in general was also unremarkable. CTA was unremarkable eitherarea patient has patchy ground-glass opacity in both flanks, mostly CHF rather than pneumonia 12/13/2017 Patient still in the ICU, on no pressors , his BP is stable and he is considered to be transfered out of the ICU today to the general medical floor , he is on IV Lasix for fluid overload. His kidney function is improved from 1.1 to 0.8. Patient was suspected to have stroke2 nightsagowhen he was noticed to have facial drop and lid drop, CT of the head was negative for acute hemorrhage or event. CT in general was also unremarkable. CTA was unremarkable either, has patchy ground-glass opacity in both sides, mostly CHF rather than pneumonia 12/14/2017 Patient still feeling better today on no pressors. Vital sustainable. Afebrile. No chest pain. Mild dyspnea. Repeat chest x-ray shows CHF with improving pulmonary edema. Patient's hemoglobin stable but on the low side. Her profiles suggesting iron deficiency anemia. 12/15/2017 Patient is feeling better today. Vitals stable. Patient is afebrile. No chest pain. Mild dyspnea. Repeat chest x-ray shows CHF with improving pulmonary edema. Patient's with iron profile showing our in deficiency anemia. Is scheduled for capsule endoscopy tomorrow. Sugar was on the low side we decrease his Levemir from 25 to 20 units at night. PT/OT follow-up is: Pending. Patient is still on IV antibiotics, and ID are following the patient. Objective - Vital Signs Vital signs: Vital Signs Temp 97.5 F L 12/15/17 09:05 Pulse 105 H 12/15/17 09:05 Resp 18 12/15/17 09:05 BP 124/90 12/15/17 09:05 Pulse Ox 96 12/15/17 09:05 Intake & Output 07/12/15/17 12/15/17 18:59 06:59 18:59 Intake Total 1630 387 Output Total 2760 520 Balance -1130 -133 Weight 84 kg Intake: IV 780 187 Sodium Chloride 0.9% 1, 180 20 000 ml @ 20 mls/hr IV . Q24H JAKE Rx#:[id number] Sodium Ferric Gluconat- 100 Sucrose 125 mg In Sodium Chloride 0.9% 100 ml @ 100 mls/hr IVPB DAILY JAKE Rx#:[id number] Vancomycin 1,750 mg In 500 167 Sodium Chloride 0.9% 500 ml @ 167 mls/hr IVPB Q16H JAKE Rx#:[id number] Oral 850 200 Output: Urine 2760 520 Other: Voiding Method Indwelling Catheter Indwelling Catheter # Voids 1 - Exam GENERAL: The patient is alert and oriented x3, not in any acute distress. Well developed, well nourished. HEENT: Pupils are round and equally reacting to light. EOMI. No scleral icterus. No conjunctival pallor. Normocephalic, atraumatic. No pharyngeal erythema. No thyromegaly. CARDIOVASCULAR: S1 and S2 present. No murmurs, rubs, or gallops. PULMONARY: Chest is clear to auscultation, no wheezing or crackles. ABDOMEN: Soft, nontender, nondistended, normoactive bowel sounds. No palpable organomegaly. MUSCULOSKELETAL: No joint swelling or deformity. EXTREMITIES: No cyanosis, clubbing, or pedal edema. NEUROLOGICAL: Gross neurological examination did not reveal any focal deficits. SKIN: No rashes. - Labs CBC & Chem 7: 12/15/17 05:34 12/15/17 05:34 Labs: Abnormal Lab Results - Last 24 Hours (Table) 12/14/17 12/14/17 12/14/17 Range/Units 12:06 17:26 21:09 RBC (4.30-5.90) m/uL Hgb (13.0-17.5) gm/dL Hct (39.0-53.0) % MCHC (31.0-37.0) g/dL RDW (11.5-15.5) % Sodium (137-145) mmol/L BUN (9-20) mg/dL Glucose (74-99) mg/dL POC Glucose (mg/dL) 109 H 101 H 132 H (75-99) mg/dL Calcium (8.4-10.2) mg/dL 12/15/17 12/15/17 12/15/17 Range/Units 05:34 05:34 06:04 RBC 3.77 L (4.30-5.90) m/uL Hgb 9.5 L (13.0-17.5) gm/dL Hct 30.7 L (39.0-53.0) % MCHC 30.9 L (31.0-37.0) g/dL RDW 19.6 H (11.5-15.5) % Sodium 136 L (137-145) mmol/L BUN 32 H (9-20) mg/dL Glucose 51 L (74-99) mg/dL POC Glucose (mg/dL) 62 L (75-99) mg/dL Calcium 8.2 L (8.4-10.2) mg/dL 12/15/17 12/15/17 Range/Units 06:18 06:54 RBC (4.30-5.90) m/uL Hgb (13.0-17.5) gm/dL Hct (39.0-53.0) % MCHC (31.0-37.0) g/dL RDW (11.5-15.5) % Sodium (137-145) mmol/L BUN (9-20) mg/dL Glucose (74-99) mg/dL POC Glucose (mg/dL) 64 L 115 H (75-99) mg/dL Calcium (8.4-10.2) mg/dL Microbiology - Last 24 Hours (Table) 12/10/17 11:38 Blood Culture - Preliminary Blood No Growth after 96 hours Assessment and Plan Assessment: possible pneumonia Possible cystitis with thickened wall Diarrhea with some epigastric discomfort, could be reactive versus gastroenteritis Cardiomegaly with pleural effusions coronary artery disease with multiple vessel disease, he is status post AICD, cardiac cath and stent, heart failure chronically elevated troponin asthma CVA/TIA diabetes mellitus GERD hyperlipidemia hypertension sleep apnea on CPAP/BiPAP chronic back pain migraine h/o rotator cuff tear obesity U TIA/CVA, with right sided weakness and numbness, resolved Plan: Continue with the same treatment, continue symptomatic treatment. Resume home medication including insulin and pressure medication. Patient is on vancomycin and aztreonam for AICD infection as per patient. ID input is appreciated.cardiology consult is appreciated for chest tightness and positive troponins, history of CHF. sent for sputum culture on blood culture. Consult for pulmonary. Continue with aspirin and Plavix. Lasix was increased to 40 twice a day, .he feels the head and CTA were unremarkable. And DVT and GI prophylaxis. Also patient has drop in hemoglobin from 9.5 to 8.5, iron studies : Possible SALVATORE, B12 and FOBT: Pending. GI consult: Pending INR 1.4 0 Monocryl follow-up INR Further recommendations based on the course of the patient's Capsule endoscopy on 12/16/2017 DVT prophylaxis on heparin GI prophylaxis on Pepcid PT/OT: Pending Prognosis is guarded
[2017-12-15] MEDS: SODIUM FERRIC GLUCONAT-SUCROSE 125 MG in SODIUM CHLORIDE 0.9% 100 ML IVPB SCH (11:14)
[2017-12-15 11:27] LABS: Glucose,Whole Blood 119 mg/dL (75-99)
--- NOTE | 2017-12-15 11:48 | P.PN ---
Subjective Patient is seen in follow-up for acute kidney injury and volume overload. Creatinine is 0.7 today. He is currently maintained on Lasix 40 mg IV 3 times daily. He is nonoliguric. Edema is improving. Oral intake is good. No vomiting or diarrhea. Denies chest pain or shortness of breath. Patient has systolic CHF with ejection fraction of 20-25%. No active bleeding. Vital signs are stable. General: The patient appeared well nourished and normally developed. HEENT: Head exam is unremarkable. Neck is without jugular venous distension. LUNGS: Lungs are clear to auscultation and percussion. Breath sounds decreased. HEART: Rate and Rhythm are regular. First and second heart sounds normal. No murmurs, rubs or gallops. ABDOMEN: Abdominal exam reveals normal bowel sounds. Non-tender and non- distended. No evidence of peritonitis. EXTREMITITES: 1+ edema. Objective - Vital Signs Vital signs: Vital Signs Temp 97.5 F L 12/15/17 09:05 Pulse 105 H 12/15/17 09:05 Resp 18 12/15/17 09:05 BP 124/90 12/15/17 09:05 Pulse Ox 96 12/15/17 09:05 Intake & Output 12/14/17 12/15/17 12/15/17 18:59 06:59 18:59 Intake Total 1630 387 Output Total 2760 520 Balance -1130 -133 Weight 84 kg Intake: IV 780 187 Sodium Chloride 0.9% 1, 180 20 000 ml @ 20 mls/hr IV . Q24H JAKE Rx#:[id number] Sodium Ferric Gluconat- 100 Sucrose 125 mg In Sodium Chloride 0.9% 100 ml @ 100 mls/hr IVPB DAILY JAKE Rx#:[id number] Vancomycin 1,750 mg In 500 167 Sodium Chloride 0.9% 500 ml @ 167 mls/hr IVPB Q16H JAKE Rx#:[id number] Oral 850 200 Output: Urine 2760 520 Other: Voiding Method Indwelling Catheter Indwelling Catheter # Voids 1 - Labs CBC & Chem 7: 12/15/17 05:34 12/15/17 05:34 Labs: Abnormal Lab Results - Last 24 Hours (Table) 12/14/17 12/14/17 12/14/17 Range/Units 12:06 17:26 21:09 RBC (4.30-5.90) m/uL Hgb (13.0-17.5) gm/dL Hct (39.0-53.0) % MCHC (31.0-37.0) g/dL RDW (11.5-15.5) % Sodium (137-145) mmol/L BUN (9-20) mg/dL Glucose (74-99) mg/dL POC Glucose (mg/dL) 109 H 101 H 132 H (75-99) mg/dL Calcium (8.4-10.2) mg/dL 12/15/17 12/15/17 12/15/17 Range/Units 05:34 05:34 06:04 RBC 3.77 L (4.30-5.90) m/uL Hgb 9.5 L (13.0-17.5) gm/dL Hct 30.7 L (39.0-53.0) % MCHC 30.9 L (31.0-37.0) g/dL RDW 19.6 H (11.5-15.5) % Sodium 136 L (137-145) mmol/L BUN 32 H (9-20) mg/dL Glucose 51 L (74-99) mg/dL POC Glucose (mg/dL) 62 L (75-99) mg/dL Calcium 8.2 L (8.4-10.2) mg/dL 12/15/17 12/15/17 12/15/17 Range/Units 06:18 06:54 11:24 RBC (4.30-5.90) m/uL Hgb (13.0-17.5) gm/dL Hct (39.0-53.0) % MCHC (31.0-37.0) g/dL RDW (11.5-15.5) % Sodium (137-145) mmol/L BUN (9-20) mg/dL Glucose (74-99) mg/dL POC Glucose (mg/dL) 64 L 115 H 119 H (75-99) mg/dL Calcium (8.4-10.2) mg/dL Microbiology - Last 24 Hours (Table) 12/10/17 11:38 Blood Culture - Preliminary Blood No Growth after 96 hours Assessment and Plan Plan: Assessment: 1. Nonoliguric acute kidney injury secondary to ATN secondary to cardiorenal syndrome and hypotension. Creatinine 0.7 today. 2. Volume overload. Improving. 3. Systolic CHF with ejection fraction of 20-25%. Status post AICD placement. 4. Hypervolemic hyponatremia. Improved. 5. Insulin-dependent diabetes mellitus. 6. Anemia. Severe iron deficiency noted. 7. Hypotension related to underlying cardiac status. Maintained on midodrine. Cortisol level normal. 8. Left leg abscess maintained on IV antibiotics. Infectious disease following. Plan: Continue Lasix 40 mg IV 3 times daily. 1500 mL fluid restriction. Ferrlecit 125 mg IV daily for 3 days. Second dose today. Avoid nephrotoxic agents and hypotensive episodes. Capsule endoscopy tomorrow.
--- NOTE | 2017-12-15 12:03 | P.PN ---
Subjective Progress Note Date: 12/15/17 Principal diagnosis: Acute hypoxemic respiratory failure secondary to acute systolic congestive heart failure This is a 41-year-old white male with history of cardiomyopathy, ischemic in nature, related to previous CT about 2 years ago. Patient required AICD placement, and he was recently at [facility] for issues related to his defibrillator, and apparently had a left leg abscess with bacteremia requiring high doses of daptomycin. Patient was admitted yesterday with mostly symptoms of shortness of breath, cough, and some vague chest pain and discomfort. Chest x-ray on admission showed interstitial edema, however based on the chest x-ray it is difficult to rule out underlying pneumonia. Patient was admitted, placed on diuretics, antibiotics, and he was seen by infectious disease on consultation. Last night, patient developed low blood pressure, and he was transferred to the ICU for possible starting the patient on norepinephrine. However he was given 1 bolus of 500 mL of 0.9 normal saline, and by the time he was transferred to the ICU, his blood pressure stabilizes. Did not require any pressors. Presently remains in the intensive care unit, and we plan to transfer him back to monitor bed on selective. Since admission the patient was seen by many consultants including infectious disease, and he was placed on vancomycin. He was also seen by nephrology for acute kidney injury and hyponatremia. Antibiotics frankel patient is now on vancomycin and aztreonam. Looking back at his chart, patient is known to have history of systolic congestive heart failure with ejection fraction of 20%. And his baseline creatinine is usually normal. During my evaluation, patient denied any headache , no blurred vision, no dizziness, some shortness of breath, no cough, no wheezing, no chest pain. No palpitations no nausea no vomiting no abdominal pain no melena no hematemesis no dysuria and no frequency no urgency. Continues to have a superficial ulceration on the anterior aspect of the right lower extremity just below the knee. Patient was reevaluated today on 12/12/2017, remains in the intensive care unit, continues to have some interstitial edema based on the chest x-ray findings, shortness of breath is slightly improved, patient had some neurological symptoms suggestive of TIA last night, underwent CT of the brain and CT angiography, he was noted to have normal CTA of the redding of Patel. Patchy groundglass opacities in both lungs reflecting mostly congestive heart failure, doubt pneumonia. CBC is relatively normal except for hemoglobin of 8.7, no evidence of leukocytosis. Basic metabolic profile is relatively normal except for a low sodium of 130 and bicarb of 19. Renal profile showed a prerenal picture. BUN is 30 creatinine is 0.8 today the patient's neurological symptoms have resolved, they were mostly some right-sided weakness and numbness. Patient was reevaluated today on 12/13/2017, remains in the intensive care unit, feeling better clinically, chest x-ray is basically about the same showing diffuse interstitial edema, underlying pneumonia is not entirely ruled out and clinically felt to be less likely. Patient is breathing easier, no cough no wheezing, no shortness of breath at rest. CBC showed WBC count of 5.4 hemoglobin is 8.6 his basic metabolic profile is normal, BUN is 37 creatinine is 1.14. On 12/14/2017 patient is reevaluated in the intensive care unit. Denies any acute distress, denies worsening dyspnea, pulse ox on 2 L per nasal cannula is 98-99%, patient is afebrile,hemodynamically stable. Denies any chest pain, maintenance IV fluids 0.9 normal saline at a rate of 20 ML per hour, patient's urine, and blood cultures remain negative, he remains on aztreonam and vancomycin for possible underlying pneumonia, bacteremia,with sepsis. His labs were noted, the VBC 6.2, hemoglobin is 9.2, electrolytes are within normal limits, BUN is 41, creatinine 0.92, patient is developing prerenal azotemia. Still has 1+ pitting edema in bilateral lower extremities, isn't open wound on his right tibia, which is covered with a dressing, and ID service is following in regards to wound care. Denies any fever or chills, patient has a congested cough, times is able to bring up whitish color sputum. Lung sounds are positive for fine rales over anterior lobes, there are some scattered rhonchi bilaterally. Today's chest x-ray has been reviewed and shows diffuse vascular prominence and interstitial densities, consistent with persistent but improving interstitial pulmonary edema. Patient remains on IV diuretics, 40 mg every 8 hours, he is in -700 mL fluid balance, and his weight is down 5.2 kg in the last 24 hours. On 12/15/2017 patient seen in follow-up on selective care unit. He sitting up in the chair, room air pulse ox is 97%, afebrile, no chills, hemodynamically stable. No dyspnea, no chest pain. Today's labs were reviewed, no leukocytosis , WBC 6.2, hemoglobin is 9.5, BUN is 32, creatinine 0.70. He remains on IV Lasix, he is nonoliguric, his bilateral lower extremity edema is improving, no vomiting or diarrhea, he is tolerating oral intake. No active bleeding. Objective - Vital Signs Vital signs: Vital Signs Temp 98.2 F 12/15/17 11:45 Pulse 105 H 12/15/17 11:45 Resp 18 12/15/17 11:45 BP 115/71 12/15/17 11:45 Pulse Ox 97 12/15/17 11:45 Intake & Output 12/14/17 12/15/17 12/15/17 18:59 06:59 18:59 Intake Total 1630 387 Output Total 2760 520 Balance -1130 -133 Weight 84 kg Intake: IV 780 187 Sodium Chloride 0.9% 1, 180 20 000 ml @ 20 mls/hr IV . Q24H JAKE Rx#:[id number] Sodium Ferric Gluconat- 100 Sucrose 125 mg In Sodium Chloride 0.9% 100 ml @ 100 mls/hr IVPB DAILY JAKE Rx#:[id number] Vancomycin 1,750 mg In 500 167 Sodium Chloride 0.9% 500 ml @ 167 mls/hr IVPB Q16H JAKE Rx#:[id number] Oral 850 200 Output: Urine 2760 520 Other: Voiding Method Indwelling Catheter Indwelling Catheter # Voids 1 - Exam Physical Exam revealed a 41-year-old white male, in no form of respiratory distress, on nasal cannula. Head: Atraumatic, normocephalic. HEENT:[Neck is supple.] [No neck masses.] [No thyromegaly.] [No JVD.] PERRLA, EOMI, no icterus, throat is clear, no oral thrush. Chest: [Clear lung sounds, no rhonchi, no rales, no wheezes Cardiac Exam: [Distant S1 and S2, no S3 gallop, no murmur.] Abdomen: [Obese, Soft, nontender, no megaly, no rebound, no guarding, normal bowel sounds.] Extremities: [No clubbing, trace of bipedal edema, no cyanosis.] Evidence of ulceration noted at the left calf region just below the left knee with minimal purulent drainage and minimal erythema surrounding the ulceration. Neurological Exam: [No focal neurologic deficit. Psychiatric: Normal mood, affect, and mental status examination. ] Lymphatics: No lymphadenopathy. - Labs CBC & Chem 7: 12/15/17 05:34 12/15/17 05:34 Labs: Abnormal Lab Results - Last 24 Hours (Table) 12/14/17 12/14/17 12/14/17 Range/Units 12:06 17:26 21:09 RBC (4.30-5.90) m/uL Hgb (13.0-17.5) gm/dL Hct (39.0-53.0) % MCHC (31.0-37.0) g/dL RDW (11.5-15.5) % Sodium (137-145) mmol/L BUN (9-20) mg/dL Glucose (74-99) mg/dL POC Glucose (mg/dL) 109 H 101 H 132 H (75-99) mg/dL Calcium (8.4-10.2) mg/dL 12/15/17 12/15/17 12/15/17 Range/Units 05:34 05:34 06:04 RBC 3.77 L (4.30-5.90) m/uL Hgb 9.5 L (13.0-17.5) gm/dL Hct 30.7 L (39.0-53.0) % MCHC 30.9 L (31.0-37.0) g/dL RDW 19.6 H (11.5-15.5) % Sodium 136 L (137-145) mmol/L BUN 32 H (9-20) mg/dL Glucose 51 L (74-99) mg/dL POC Glucose (mg/dL) 62 L (75-99) mg/dL Calcium 8.2 L (8.4-10.2) mg/dL 12/15/17 12/15/17 12/15/17 Range/Units 06:18 06:54 11:24 RBC (4.30-5.90) m/uL Hgb (13.0-17.5) gm/dL Hct (39.0-53.0) % MCHC (31.0-37.0) g/dL RDW (11.5-15.5) % Sodium (137-145) mmol/L BUN (9-20) mg/dL Glucose (74-99) mg/dL POC Glucose (mg/dL) 64 L 115 H 119 H (75-99) mg/dL Calcium (8.4-10.2) mg/dL Microbiology - Last 24 Hours (Table) 12/10/17 11:38 Blood Culture - Preliminary Blood No Growth after 96 hours Assessment and Plan Plan: Assessment: 1 acute systolic congestive heart failure and hypoxic respiratory failure secondary to CHF. 2 underlying pneumonia is not entirely ruled out, but felt to be less likely patient is on empiric antibiotics including vancomycin and aztreonam, suggested by infectious disease on the case. 3 severe ischemic cardiomyopathy and LV dysfunction with previous AICD placement. 4 left lower extremity abscess and recent episode of bacteremia treated recently with daptomycin, presently on vancomycin and aztreonam. 5 acute episode of hypotension secondary to profound LV dysfunction and diuretics. Possible some component of hypovolemia, strongly doubt sepsis causing his hypotension. Recommendation: Patient is stable, breathing better, she still on room air, we will switch the IV diuretics to oral Lasix 40 mg daily. Antibiotics per ID service, no fever, no chills. Hemoglobin is stable, no active bleeding. GI service is following regarding iron deficiency anemia. Patient is stable, and improving. Obtain repeat chest x-ray in the morning I performed a history & physical examination of the patient and discussed their management with my nurse practitioner, Beronica Núñez. I reviewed the nurse practitioner's note and agree with the documented findings and plan of care. Lung sounds are clear. The findings and the impression was discussed with the patient. I attest to the documentation by the nurse practitioner. Time with Patient: Less than 30
[2017-12-15] MEDS: VANCOMYCIN 1,750 MG in SODIUM CHLORIDE 0.9% 500 ML IVPB SCH (14:14)
--- NOTE | 2017-12-15 14:34 | P.PN ---
Subjective Progress Note Date: 12/15/17 This is a 41-year-old gentleman with known history of severe ischemic cardio myopathy, status post ICD as well as multiple percutaneous revascularization who presented to the hospital with hypotension which was felt to be secondary to sepsis. Patient was seen and examined this morning on the telemetry unit, sitting up in his chair, feeling well overall. Patient is scheduled tomorrow to undergo a capsule endoscopy. At pressure 115/70 with a heart rate of 90, 97 % on room air. Blood cell count 6.2, hemoglobin 9.5, platelet count 350. Sodium 136, potassium 3.6, BUN 32, creatinine 0.7. Objective - Vital Signs Vital signs: Vital Signs Temp 98.2 F 12/15/17 11:45 Pulse 105 H 12/15/17 11:45 Resp 18 12/15/17 11:45 BP 115/71 12/15/17 11:45 Pulse Ox 97 12/15/17 11:45 Intake & Output 12/14/17 12/15/17 12/15/17 18:59 06:59 18:59 Intake Total 1630 387 Output Total 2760 520 Balance -1130 -133 Weight 84 kg Intake: IV 780 187 Sodium Chloride 0.9% 1, 180 20 000 ml @ 20 mls/hr IV . Q24H JAKE Rx#:[id number] Sodium Ferric Gluconat- 100 Sucrose 125 mg In Sodium Chloride 0.9% 100 ml @ 100 mls/hr IVPB DAILY JAKE Rx#:[id number] Vancomycin 1,750 mg In 500 167 Sodium Chloride 0.9% 500 ml @ 167 mls/hr IVPB Q16H JAKE Rx#:[id number] Oral 850 200 Output: Urine 2760 520 Other: Voiding Method Indwelling Catheter Indwelling Catheter # Voids 1 - Exam PHYSICAL EXAMINATION: GENERAL: 41-year-old gentleman in no acute distress at the time of my examination HEENT: Head is atraumatic, normocephalic. Pupils equal, round. Sclera anicteric. Conjunctiva are clear. Mucous membranes of the mouth are moist. Neck is supple. There is no elevated jugular venous pressure.] bruit is heard. HEART EXAMINATION: Heart S1 S2 1 systolic murmur is heard CHEST EXAMINATION: Lungs are clear to auscultation and precussion. No chest wall tenderness is noted on palpation or with deep breathing. ABDOMEN: Soft, nontender. Bowel sounds are heard. No organomegaly noted. EXTREMITIES: 2+ peripheral pulses with trace evidence of peripheral edema and no calf tenderness noted. NEUROLOGIC patient is awake, alert and oriented ?-3. . - Labs CBC & Chem 7: 12/15/17 05:34 12/15/17 05:34 Labs: Abnormal Lab Results - Last 24 Hours (Table) 12/14/17 12/14/17 12/15/17 Range/Units 17:26 21:09 05:34 RBC 3.77 L (4.30-5.90) m/uL Hgb 9.5 L (13.0-17.5) gm/dL Hct 30.7 L (39.0-53.0) % MCHC 30.9 L (31.0-37.0) g/dL RDW 19.6 H (11.5-15.5) % Sodium (137-145) mmol/L BUN (9-20) mg/dL Glucose (74-99) mg/dL POC Glucose (mg/dL) 101 H 132 H (75-99) mg/dL Calcium (8.4-10.2) mg/dL 12/15/17 12/15/17 12/15/17 Range/Units 05:34 06:04 06:18 RBC (4.30-5.90) m/uL Hgb (13.0-17.5) gm/dL Hct (39.0-53.0) % MCHC (31.0-37.0) g/dL RDW (11.5-15.5) % Sodium 136 L (137-145) mmol/L BUN 32 H (9-20) mg/dL Glucose 51 L (74-99) mg/dL POC Glucose (mg/dL) 62 L 64 L (75-99) mg/dL Calcium 8.2 L (8.4-10.2) mg/dL 12/15/17 12/15/17 Range/Units 06:54 11:24 RBC (4.30-5.90) m/uL Hgb (13.0-17.5) gm/dL Hct (39.0-53.0) % MCHC (31.0-37.0) g/dL RDW (11.5-15.5) % Sodium (137-145) mmol/L BUN (9-20) mg/dL Glucose (74-99) mg/dL POC Glucose (mg/dL) 115 H 119 H (75-99) mg/dL Calcium (8.4-10.2) mg/dL Microbiology - Last 24 Hours (Table) 12/10/17 11:38 Blood Culture - Preliminary Blood No Growth after 120 hours Assessment and Plan Plan: Assessment and plan #1 hypotension, resolved #2 known history of coronary artery disease with multiple PCI's #3 severe ischemic cardio myopathy with prior AICD #4 acute kidney injury, resolved #5 left leg abscess #6 systolic congestive heart failure acute on chronic #7 anemia Plan From cardiology's perspective, we will recommend patient to continue on his current medications. We will follow him along with you now on an as-needed basis only, please don't hesitate to call with any questions. DNP note has been reviewed, I agree with a documented findings and plan of care. Patient was seen and examined.
[2017-12-15 16:32] LABS: Glucose,Whole Blood 113 mg/dL (75-99)
[2017-12-15] MEDS ORDERED: MAGNESIUM CITRATE 296 ML BOTTLE PO ONE (17:00)
[2017-12-15 20:40] LABS: Glucose,Whole Blood 88 mg/dL (75-99)
--- NOTE | 2017-12-15 20:47 | P.PN ---
Subjective Progress Note Date: 12/15/17 41-year-old male presented to hospital with chest pain and progressive shortness of breath poor exercise tolerance generalized malaise and symptoms with nausea, some dry heaves. He does relate that he had a minimal cough with some aching much sputum production was feeling progressively worse. At the present to the emergency center and was admitted for treatment of underlying coronary artery disease. The patient has a extensive past medical history with coronary artery disease, [place] stroke diabetes hypertension and cardiac dysrhythmia. Apparently 2 years ago patient suffered from Myocardial infarction at that point time requiring AICD replaced. Recently hospitalized at outside facility and there he had evidence of difficulties with abscess to his left leg from the data that we have so far the patient was bacteremic and is now being treated with daptomycin and high-dose with overall goal for salvage of his AICD. The patient presented to this facility with chest pain and shortness of breath and cough, is feeling somewhat more poorly and infectious disease consult was requested regarding his antibiotic therapy. The patient does feel poorly and the nursing staff relates that he is not feeling as well today as he was even a day ago. 12/11/2017 patient was moved to ICU due to chest pain and now feeling slightly better but has developed nausea and emesis, but not hypotension. 12/14/2017 patient has improved and is no longer ICU patient, has had effective diuresis and feels much better is anticipating discharge soon. Afebrile and denies new syptoms. 12/15/2017 patient is doing well out of the ICU. His shortness of breath is improved. Denying abdominal pain. Appetite is going well. He remains a significant anemia. He has been evaluated by gastroenterology and a capsule study as been planned to evaluate for further etiology of gastrointestinal bleeding. His strength is improving, he is having no further nausea or emesis. Chest pain is resolved and his shortness of breath is improved. He has had a significant diuresis which is also been very helpful. Objective - Vital Signs Vital signs: Vital Signs Temp 96.8 F L 12/15/17 20:00 Pulse 103 H 12/15/17 20:00 Resp 19 12/15/17 20:00 BP 107/73 12/15/17 20:00 Pulse Ox 95 12/15/17 20:00 Intake & Output 12/15/17 12/15/17 12/16/17 06:59 18:59 06:59 Intake Total 387 Output Total 520 Balance -133 Weight 84 kg Intake: IV 187 Sodium Chloride 0.9% 1, 20 000 ml @ 20 mls/hr IV . Q24H JAKE Rx#:[id number] Vancomycin 1,750 mg In 167 Sodium Chloride 0.9% 500 ml @ 167 mls/hr IVPB Q16H JAKE Rx#:[id number] Oral 200 Output: Urine 520 Other: Voiding Method Indwelling Catheter Indwelling Catheter Indwelling Catheter # Voids 1 - Exam 41-year-old male who appears considerably older than his stated age. Patient is not diaphoretic and is not in acute distress but does state he feels poorly HEENT: Anicteric conjunctiva are pink and moist nasal mucosa grossly intact without significant lesions, there is no thrush. Neck: The neck is supple without significant lymphadenopathy or thyromegaly. Lungs: Symmetrical air entry is noted, basilar crackles resolved a few expiratory wheezes are scattered no acute bronchial sounds no dullness or egophony Heart: Regular without audible S1 and S2 no S3 soft S4 no murmur click or rub Abdomen: Obese, Positive bowel sounds soft and nontender without palpable masses or organomegaly. There was no guarding or rebound. Extremities: Upper extremities intact IV sites intact. PICC line left arm without tenderness erythema crepitus or fluctuance. Lower extremities have some trace edema. The abscess on the left calf area is nearly resolved only minimal erythema evidence of granulation no ascending erythema no fluctuance or necrosis Neuro: Awake alert oriented to person place and time. There are no acute new gross focal sensory motor deficits. - Labs CBC & Chem 7: 12/15/17 05:34 12/15/17 05:34 Labs: Abnormal Lab Results - Last 24 Hours (Table) 12/14/17 12/15/17 12/15/17 Range/Units 21:09 05:34 05:34 RBC 3.77 L (4.30-5.90) m/uL Hgb 9.5 L (13.0-17.5) gm/dL Hct 30.7 L (39.0-53.0) % MCHC 30.9 L (31.0-37.0) g/dL RDW 19.6 H (11.5-15.5) % Sodium 136 L (137-145) mmol/L BUN 32 H (9-20) mg/dL Glucose 51 L (74-99) mg/dL POC Glucose (mg/dL) 132 H (75-99) mg/dL Calcium 8.2 L (8.4-10.2) mg/dL 12/15/17 12/15/17 12/15/17 Range/Units 06:04 06:18 06:54 RBC (4.30-5.90) m/uL Hgb (13.0-17.5) gm/dL Hct (39.0-53.0) % MCHC (31.0-37.0) g/dL RDW (11.5-15.5) % Sodium (137-145) mmol/L BUN (9-20) mg/dL Glucose (74-99) mg/dL POC Glucose (mg/dL) 62 L 64 L 115 H (75-99) mg/dL Calcium (8.4-10.2) mg/dL 12/15/17 12/15/17 Range/Units 11:24 16:30 RBC (4.30-5.90) m/uL Hgb (13.0-17.5) gm/dL Hct (39.0-53.0) % MCHC (31.0-37.0) g/dL RDW (11.5-15.5) % Sodium (137-145) mmol/L BUN (9-20) mg/dL Glucose (74-99) mg/dL POC Glucose (mg/dL) 119 H 113 H (75-99) mg/dL Calcium (8.4-10.2) mg/dL Microbiology - Last 24 Hours (Table) 12/10/17 11:38 Blood Culture - Preliminary Blood No Growth after 120 hours Laboratory Results WBC 6.2 k/uL (3.8-10.6) 12/15/17 05:34 RBC 3.77 m/uL (4.30-5.90) L 12/15/17 05:34 Hgb 9.5 gm/dL (13.0-17.5) L 12/15/17 05:34 Hct 30.7 % (39.0-53.0) L 12/15/17 05:34 MCV 81.6 fL (80.0-100.0) 12/15/17 05:34 MCH 25.2 pg (25.0-35.0) 12/15/17 05:34 MCHC 30.9 g/dL (31.0-37.0) L 12/15/17 05:34 RDW 19.6 % (11.5-15.5) H 12/15/17 05:34 Plt Count 350 k/uL (150-450) 12/15/17 05:34 Neutrophils % 59 % 12/15/17 05:34 Neutrophils % (Manual) 66 % 12/13/17 06:30 Band Neutrophils % 1 % 12/13/17 06:30 Lymphocytes % 24 % 12/15/17 05:34 Lymphocytes % (Manual) 19 % 12/13/17 06:30 Monocytes % 6 % 12/15/17 05:34 Monocytes % (Manual) 7 % 12/13/17 06:30 Eosinophils % 9 % 12/15/17 05:34 Eosinophils % (Manual) 7 % 12/13/17 06:30 Basophils % 1 % 12/15/17 05:34 Metamyelocytes % 2 % 12/13/17 06:30 Neutrophils # 3.7 k/uL (1.3-7.7) 12/15/17 05:34 Neutrophils # (Manual) 3.60 k/uL (1.3-7.7) 12/13/17 06:30 Lymphocytes # 1.5 k/uL (1.0-4.8) 12/15/17 05:34 Lymphocytes # (Manual) 1.03 k/uL (1.0-4.8) 12/13/17 06:30 Monocytes # 0.4 k/uL (0-1.0) 12/15/17 05:34 Monocytes # (Manual) 0.38 k/uL (0-1.0) 12/13/17 06:30 Eosinophils # 0.6 k/uL (0-0.7) 12/15/17 05:34 Eosinophils # (Manual) 0.38 k/uL (0-0.7) 12/13/17 06:30 Basophils # 0.0 k/uL (0-0.2) 12/15/17 05:34 Metamyelocytes # (Man) 0.11 k/uL (0) H 12/13/17 06:30 Nucleated RBCs 0 /100 WBC (0-0) 12/13/17 06:30 Manual Slide Review Performed 12/15/17 05:34 Polychromasia Present 12/13/17 06:30 Hypochromasia Marked 12/15/17 05:34 Poikilocytosis Slight 12/15/17 05:34 Anisocytosis Slight 12/15/17 05:34 Microcytosis Slight 12/15/17 05:34 Target Cells Present 12/15/17 05:34 Ovalocytes Present 12/15/17 05:34 PT 11.6 sec (9.0-12.0) 12/13/17 06:30 INR 1.2 (<1.2) H 12/13/17 06:30 APTT 26.2 sec (22.0-30.0) 12/12/17 05:30 VBG pH 7.47 (7.31-7.41) H 12/09/17 21:16 VBG pCO2 26 mmHg (37-51) L 12/09/17 21:16 VBG HCO3 19 mmol/L (24-28) L 12/09/17 21:16 Sodium 136 mmol/L (137-145) L 12/15/17 05:34 Potassium 3.6 mmol/L (3.5-5.1) 12/15/17 05:34 Chloride 103 mmol/L (98-107) 12/15/17 05:34 Carbon Dioxide 27 mmol/L (22-30) 12/15/17 05:34 Anion Gap 6 mmol/L 12/15/17 05:34 BUN 32 mg/dL (9-20) H 12/15/17 05:34 Creatinine 0.70 mg/dL (0.66-1.25) 12/15/17 05:34 Est GFR (CKD-EPI)AfAm >90 (>60 ml/min/1.73 sqM) 12/15/17 05:34 Est GFR (CKD-EPI)NonAf >90 (>60 ml/min/1.73 sqM) 12/15/17 05:34 Glucose 51 mg/dL (74-99) L 12/15/17 05:34 POC Glucose (mg/dL) 88 mg/dL (75-99) 12/15/17 20:37 POC Glu Greeter Aliyah Farooq 12/15/17 20:37 Plasma Lactic Acid [place] 1.6 mmol/L (0.7-2.0) 12/10/17 20:22 Calcium 8.2 mg/dL (8.4-10.2) L 12/15/17 05:34 Phosphorus 3.5 mg/dL (2.5-4.5) 12/13/17 06:30 Magnesium 1.9 mg/dL (1.6-2.3) 12/14/17 05:02 Iron 10 ug/dL (65-175) L 12/11/17 04:54 TIBC 216 ug/dL (228-460) L 12/11/17 04:54 Iron Saturation 4.17 (15.00-50.00) L 12/11/17 04:54 Ferritin 143.7 ng/mL (22.0-322.0) 12/11/17 04:54 Total Bilirubin 1.0 mg/dL (0.2-1.3) 12/09/17 21:16 AST 25 U/L (17-59) 12/09/17 21:16 ALT 45 U/L (21-72) 12/09/17 21:16 Alkaline Phosphatase 197 U/L (38-126) H 12/09/17 21:16 Troponin I 0.188 ng/mL (0.000-0.034) H* 12/12/17 05:30 NT-Pro-B Natriuret Pep 36256 pg/mL 12/09/17 21:16 Total Protein 5.2 g/dL (6.3-8.2) L 12/09/17 21:16 Albumin 2.6 g/dL (3.5-5.0) L 12/09/17 21:16 Lipase 181 U/L (23-300) 12/09/17 21:16 Vitamin B12 882.0 pg/mL (200.0-944.0) 12/11/17 04:54 Folate 8.1 ng/mL 12/11/17 04:54 Cortisol 21 ug/dL 12/12/17 05:30 Urine Color Yellow 12/11/17 05:20 Urine Appearance Cloudy (Clear) 12/11/17 05:20 Urine pH 5.5 (5.0-8.0) 12/11/17 05:20 Ur Specific [place] 1.017 (1.001-1.035) 12/11/17 05:20 Urine Protein 1+ (Negative) H 12/11/17 05:20 Urine Glucose (UA) Negative (Negative) 12/11/17 05:20 Urine Ketones Negative (Negative) 12/11/17 05:20 Urine Blood Negative (Negative) 12/11/17 05:20 Urine Nitrite Negative (Negative) 12/11/17 05:20 Urine Bilirubin 1+ (Negative) H 12/11/17 05:20 Urine Urobilinogen 8.0 mg/dL (<2.0) 12/11/17 05:20 Ur Leukocyte Esterase Negative (Negative) 12/11/17 05:20 Urine RBC <1 /hpf (0-5) 12/11/17 05:20 Urine WBC 7 /hpf (0-5) H 12/11/17 05:20 Amorphous Sediment Rare /hpf (None) H 12/11/17 05:20 Hyaline Casts 22 /lpf (0-2) H 12/11/17 05:20 Urine Mucus Occasional /hpf (None) H 12/11/17 05:20 Vancomycin Trough 21.0 ug/mL 12/13/17 06:30 Urine Opiates Screen Not Detected (NotDetected) 12/09/17 22:47 Ur Oxycodone Screen Not Detected (NotDetected) 12/09/17 22:47 Urine Methadone Screen Not Detected (NotDetected) 12/09/17 22:47 Ur Propoxyphene Screen Not Detected (NotDetected) 12/09/17 22:47 Ur Barbiturates Screen Detected (NotDetected) H 12/09/17 22:47 U Tricyclic Antidepress Not Detected (NotDetected) 12/09/17 22:47 Ur Phencyclidine Scrn Not Detected (NotDetected) 12/09/17 22:47 Ur Amphetamines Screen Not Detected (NotDetected) 12/09/17 22:47 U Methamphetamines Scrn Not Detected (NotDetected) 12/09/17 22:47 U Benzodiazepines Scrn Not Detected (NotDetected) 12/09/17 22:47 Urine Cocaine Screen Not Detected (NotDetected) 12/09/17 22:47 U Marijuana (THC) Screen Not Detected (NotDetected) 12/09/17 22:47 Serum Alcohol <10 mg/dL 12/09/17 21:16 Microbiology 12/10/17 11:38 Blood Blood Culture - Preliminary No Growth after 120 hours 12/11/17 05:20 Urine,Catheterized Urine Culture - Final 12/09/17 22:47 Urine,Voided Urine Culture - Final Assessment and Plan (1) AICD (automatic cardioverter/defibrillator) present Current Visit: No Status: Acute Code(s): Z95.810 - PRESENCE OF AUTOMATIC ( IMPLANTABLE) CARDIAC DEFIBRILLATOR SNOMED Code(s): 750788511 (2) Cardiomyopathy Current Visit: Yes Status: Acute Code(s): I42.9 - CARDIOMYOPATHY, UNSPECIFIED SNOMED Code(s): 46562066 (3) Bacteremia Narrative/Plan: 41-year-old male that has an extensive past medical history of cardiovascular disease. Has an AICD placed a few years ago was recently hospitalized an outside hospital, there there was concerns to bacteremia likely from the abscess to the left leg. It appears to goal with salvage of the AICD he was placed on high-dose daptomycin. The patient are developed some chest pain increasing shortness of breath some cough generalized malaise and nausea and presented to our facility. With a significant cardiac history concerns to further cardiac disease and has been admitted. X-rays are mildly abnormal potential for pneumonia also exists. Daptomycin is not routinely used for pneumonia, may be effective for those that have endocarditis and pulmonary infiltrates, but for other pneumonias is not highly effective and consequently we'll alter to vancomycin at this time. Given the level illness will also adding gram-negative coverage with this many ALLERGIES Azactam will be added. Cultures are processing he will be followed. Outside data he has been requested patient to sign release of information to evaluate outside cultures and to evaluate the infectious diseases consultations to assist with the overall plan especially discharge planning. The patient is acutely ill and there is concerns for his deterioration. 12/11/2017 the patient did worsen overnight became more short of breath and even developed some nausea and has had some emesis today. I have a high-grade fever. But does feel quite poorly. With his nausea some Zofran is requested and does give him some relief. Continue antibiotic therapy this time with vancomycin and Azactam with concerns for potential pneumonia for which the daptomycin would not treat. Await cultures to ensure that we do not need to continue with gram-negative therapy. The patient does have a significant ischemic cardiac myopathy and AICD is in place. We are awaiting the records from [facility] to determine the pathogen, and course of therapy that was directed at that stay. Cultures for further help direct his therapy. 12/14/2017 outside data is yet to be obtained help clarify his course of antibiotic therapy. Cardiology and pulmonary critical care has been following and he's had an acute exacerbation of systolic congestive heart failure and has had improvement of symptoms with his diuresis, has lost 5.2 kg. His symptoms of chest pain have resolved his nausea and emesis have resolved and is feeling considerably better. With his diuresis and alteration of his antibiotic therapy there is no marked improvement. We'll likely need to contact [facility] for further information before his discharge to ensure the change of antibiotic therapy vancomycin is even an option for his prior event which appears to be bacteremia. Unclear if he had a vancomycin resistant pathogen or daptomycin was chosen because of less toxicity. 12/15/2017 patient is feeling better. Remains out of the intensive care unit shortness of breath is improved but continues to have anemia. He has been evaluated by gastroenterology and capsule endoscopy is planned given that upper and lower endoscopy was not diagnostic. As noted patient was care for an outside hospital and was on antibiotic therapy but still developed the evidence of pneumonia and a sepsis-like process. Is now doing well with the change of antibiotic therapy to vancomycin and Azactam. We do have negative cultures. It is noted he had a bacteremic event at the outside hospital and is receiving daptomycin therapy for that. This is been transitioned to vancomycin therapy and likely will stay on that at the time of his discharge to home. It appears that mid December would be determined and date of antibiotic therapy. We have asked for the culture results and consult notes from the outside hospital to further direct therapy here. Current Visit: Yes Status: Acute Code(s): R78.81 - BACTEREMIA SNOMED Code( s): 7473719
[2017-12-15] MEDS: NON-FORMULARY DRUG (Rosuvastatin Calcium [Crestor] 40 MG) PO SCH (21:39)
[2017-12-15] MEDS: CLOPIDOGREL 75 MG TAB PO SCH (21:39)
[2017-12-15] MEDS: INSULIN DETEMIR 100 UNIT/ML 10 ML VIAL SQ SCH (21:49)
[2017-12-16 02:27] LABS: Glucose,Whole Blood 86 mg/dL (75-99)
[2017-12-16] MEDS: SODIUM CHLORIDE 0.9% 1,000 ML IV SCH ×2 (03:48→20:46)
[2017-12-16] MEDS: VANCOMYCIN 1,750 MG in SODIUM CHLORIDE 0.9% 500 ML IVPB SCH ×2 (03:48→17:09)
[2017-12-16 05:55] LABS: Glucose,Whole Blood 96 mg/dL (75-99)
[2017-12-16 06:07] LABS: Anisocytosis Moderate; Basophils % (A) 1 %; Eosinophils # (A) 0.5 k/uL (0-0.7); Eosinophils % (A) 9 %; HCT 31.4 % (39.0-53.0); HGB 9.4 gm/dL (13.0-17.5); Hypochromasia Marked; Lymphocytes # (A) 1.3 k/uL (1.0-4.8); Lymphocytes % (A) 23 %; MCH 24.6 pg (25.0-35.0); MCHC 29.9 g/dL (31.0-37.0); MCV 82.3 fL (80.0-100.0); Mean Platelet Volume 7.2; Microcytosis Slight; Monocytes # (A) 0.2 k/uL (0-1.0); Monocytes % (A) 4 %; Neutrophils # (A) 3.6 k/uL (1.3-7.7); Neutrophils % (A) 62 %; Platelet Count 383 k/uL (150-450); Poikilocytosis Moderate; RBC 3.82 m/uL (4.30-5.90); RDW 20.1 % (11.5-15.5); WBC 5.8 k/uL (3.8-10.6)
[2017-12-16] MEDS: INSULIN ASPART 100 UNIT/ML 1 ML 10 ML VIAL SQ SCH ×8 (06:40→21:09)
[2017-12-16] MEDS: MIDODRINE 5 MG TAB PO SCH ×3 (06:41→17:08)
[2017-12-16 06:58] LABS: Anion Gap 6 mmol/L; Blood Urea Nitrogen 21 mg/dL (9-20); Calcium 8.2 mg/dL (8.4-10.2); Carbon Dioxide 27 mmol/L (22-30); Chloride 102 mmol/L (98-107); Glucose 76 mg/dL (74-99); Magnesium 2.1 mg/dL (1.6-2.3); Potassium 4.2 mmol/L (3.5-5.1); Sodium 135 mmol/L (137-145)
--- NOTE | 2017-12-16 07:08 | XR ---
EXAMINATION TYPE: XR chest 2V DATE OF EXAM: 12/16/2017 COMPARISON: 12/14/2017 INDICATION: Short of breath TECHNIQUE: Frontal and lateral views of the chest are obtained. FINDINGS: The heart size is normal. The pulmonary vasculature is prominent. There is infiltrate in the left upper lobe. This is increasing over the interval. Mild diffuse increa sed lung markings are present to the right perihilar region. Pacemaker overlies left chest.. IMPRESSION: 1. Increasing left upper lobe infiltrate. Correlate for worsening pneumonia. 2. Mild increasing diffuse lung markings and prominent pulmonary vascular markings. Some pulmonary ed trip could be considered. Clinical correlation recommended.
[2017-12-16] MEDS ORDERED: SIMETHICONE 40 MG/0.6 ML DROPS 2,000 MG/30 ML BOTTLE PO ONE (08:05)
[2017-12-16] MEDS: AZTREONAM 2 GM in SODIUM CHLORIDE 0.9% 100 ML IVPB SCH ×2 (08:15→15:40)
[2017-12-16] MEDS ORDERED: FUROSEMIDE 40 MG TAB PO SCH (09:00)
--- NOTE | 2017-12-16 09:22 | P.PN ---
Subjective Patient is seen in follow-up for acute kidney injury and volume overload. Acute kidney injury has resolved. He is currently maintained on Lasix 40 mg once daily orally. He is nonoliguric. Edema is improving. Oral intake is good. No vomiting or diarrhea. Denies chest pain or shortness of breath. Patient has systolic CHF with ejection fraction of 20-25%. No active bleeding. Vital signs are stable. General: The patient appeared well nourished and normally developed. HEENT: Head exam is unremarkable. Neck is without jugular venous distension. LUNGS: Lungs are clear to auscultation and percussion. Breath sounds decreased. HEART: Rate and Rhythm are regular. First and second heart sounds normal. No murmurs, rubs or gallops. ABDOMEN: Abdominal exam reveals normal bowel sounds. Non-tender and non- distended. No evidence of peritonitis. EXTREMITITES: 1+ edema. Objective - Vital Signs Vital signs: Vital Signs Temp 98.1 F 12/16/17 08:17 Pulse 103 H 12/16/17 08:17 Resp 18 12/16/17 08:17 BP 119/87 12/16/17 08:17 Pulse Ox 97 12/16/17 08:17 Intake & Output 12/15/17 12/16/17 12/16/17 18:59 06:59 18:59 Weight 109.7 kg Other: Voiding Method Indwelling Catheter Toilet Toilet Urinal Urinal - Labs CBC & Chem 7: 12/16/17 05:49 12/16/17 05:49 Labs: Abnormal Lab Results - Last 24 Hours (Table) 12/15/17 12/15/17 12/16/17 Range/Units 11:24 16:30 05:49 RBC 3.82 L (4.30-5.90) m/uL Hgb 9.4 L (13.0-17.5) gm/dL Hct 31.4 L (39.0-53.0) % MCH 24.6 L (25.0-35.0) pg MCHC 29.9 L (31.0-37.0) g/dL RDW 20.1 H (11.5-15.5) % Sodium (137-145) mmol/L BUN (9-20) mg/dL Creatinine (0.66-1.25) mg/dL POC Glucose (mg/dL) 119 H 113 H (75-99) mg/dL Calcium (8.4-10.2) mg/dL 12/16/17 Range/Units 05:49 RBC (4.30-5.90) m/uL Hgb (13.0-17.5) gm/dL Hct (39.0-53.0) % MCH (25.0-35.0) pg MCHC (31.0-37.0) g/dL RDW (11.5-15.5) % Sodium 135 L (137-145) mmol/L BUN 21 H (9-20) mg/dL Creatinine 0.65 L (0.66-1.25) mg/dL POC Glucose (mg/dL) (75-99) mg/dL Calcium 8.2 L (8.4-10.2) mg/dL Microbiology - Last 24 Hours (Table) 12/10/17 11:38 Blood Culture - Preliminary Blood No Growth after 120 hours Assessment and Plan Plan: Assessment: 1. Nonoliguric acute kidney injury secondary to ATN secondary to cardiorenal syndrome and hypotension. Resolved. 2. Volume overload. Improving. 3. Systolic CHF with ejection fraction of 20-25%. Status post AICD placement. 4. Hypervolemic hyponatremia. Improved. 5. Insulin-dependent diabetes mellitus. 6. Anemia. Severe iron deficiency noted. 7. Hypotension related to underlying cardiac status. Maintained on midodrine. Cortisol level normal. 8. Left leg abscess maintained on IV antibiotics. Infectious disease following. Plan: Resume IV Lasix 40 mg IV twice daily. Still has significant edema. 1500 mL fluid restriction. Ferrlecit 125 mg IV daily for 3 days. Third dose today. Avoid nephrotoxic agents and hypotensive episodes. Currently undergoing capsule endoscopy.
[2017-12-16] MEDS: SODIUM FERRIC GLUCONAT-SUCROSE 125 MG in SODIUM CHLORIDE 0.9% 100 ML IVPB SCH (10:31)
[2017-12-16 11:19] LABS: Glucose,Whole Blood 135 mg/dL (75-99)
--- NOTE | 2017-12-16 11:35 | P.PN ---
Subjective Progress Note Date: 12/16/17 Principal diagnosis: Anemia Small bowel capsule study in progress. Denies hematemesis hematochezia melena. Hemoglobin 9.4. Objective - Vital Signs Vital signs: Vital Signs Temp 98.1 F 12/16/17 08:17 Pulse 103 H 12/16/17 08:17 Resp 18 12/16/17 08:17 BP 119/87 12/16/17 08:17 Pulse Ox 97 12/16/17 08:17 Intake & Output 12/15/17 12/16/17 12/16/17 18:59 06:59 18:59 Weight 109.7 kg Other: Voiding Method Indwelling Catheter Toilet Toilet Urinal Urinal - Exam General appearance: The patient is alert, oriented, in no acute distress. HET: Head is normocephalic and atraumatic. Pupils are equal and reactive. Oropharynx is clear without lesions. Neck: Supple without lymphadenopathy. Trachea midline. Heart: S1 S2. Lungs: No crackles or wheezes are heard. Abdomen: Soft, nontender, nondistended with bowel sounds. No peritoneal signs. No palpable organomegaly or masses. - Labs CBC & Chem 7: 12/16/17 05:49 12/16/17 05:49 Labs: Abnormal Lab Results - Last 24 Hours (Table) 12/15/17 12/16/17 12/16/17 Range/Units 16:30 05:49 05:49 RBC 3.82 L (4.30-5.90) m/uL Hgb 9.4 L (13.0-17.5) gm/dL Hct 31.4 L (39.0-53.0) % MCH 24.6 L (25.0-35.0) pg MCHC 29.9 L (31.0-37.0) g/dL RDW 20.1 H (11.5-15.5) % Sodium 135 L (137-145) mmol/L BUN 21 H (9-20) mg/dL Creatinine 0.65 L (0.66-1.25) mg/dL POC Glucose (mg/dL) 113 H (75-99) mg/dL Calcium 8.2 L (8.4-10.2) mg/dL 12/16/17 Range/Units 11:13 RBC (4.30-5.90) m/uL Hgb (13.0-17.5) gm/dL Hct (39.0-53.0) % MCH (25.0-35.0) pg MCHC (31.0-37.0) g/dL RDW (11.5-15.5) % Sodium (137-145) mmol/L BUN (9-20) mg/dL Creatinine (0.66-1.25) mg/dL POC Glucose (mg/dL) 135 H (75-99) mg/dL Calcium (8.4-10.2) mg/dL Microbiology - Last 24 Hours (Table) 12/10/17 11:38 Blood Culture - Preliminary Blood No Growth after 120 hours Assessment and Plan (1) Iron deficiency anemia Narrative/Plan: 41-year-old male with extensive cardiac history AICD left lower extremity wound admitted with CHF possible pneumonia recent hospitalization for bacteremia receiving IV antibiotic therapy in hopes to salvage AICD with persistent normocytic chromic anemia without overt bleeding. Recent EGD colonoscopy evaluation 10 days ago for evaluation of anemia and positive Hemoccult indicated Diaz's esophagus, colonoscopy within normal limits. Underlying small bowel source of anemia cannot be excluded. Current Visit: Yes Status: Acute Code(s): D50.9 - IRON DEFICIENCY ANEMIA, UNSPECIFIED SNOMED Code(s): 89955817 (2) Bacteremia Current Visit: Yes Status: Acute Code(s): R78.81 - BACTEREMIA SNOMED Code( s): 3948791 (3) Leg wound, left Current Visit: Yes Status: Acute Code(s): S81.802A - UNSPECIFIED OPEN WOUND , LEFT LOWER LEG, INITIAL ENCOUNTER SNOMED Code(s): 254813127 (4) Cardiomyopathy Current Visit: Yes Status: Acute Code(s): I42.9 - CARDIOMYOPATHY, UNSPECIFIED SNOMED Code(s): 59466298 (5) Congestive heart failure Current Visit: Yes Status: Acute Code(s): I50.9 - HEART FAILURE, UNSPECIFIED SNOMED Code(s): 25015599 (6) AICD (automatic cardioverter/defibrillator) present Current Visit: No Status: Acute Code(s): Z95.810 - PRESENCE OF AUTOMATIC ( IMPLANTABLE) CARDIAC DEFIBRILLATOR SNOMED Code(s): 009984096 (7) CAD (coronary artery disease) Current Visit: Yes Status: Acute Code(s): I25.10 - ATHSCL HEART DISEASE OF [place] CORONARY ARTERY W/O ANG PCTRS SNOMED Code(s): 60219696 Plan: 1. Capsule endoscopy started this morning we'll review results tomorrow and advise accordingly. Iron therapy discussed receiving intravenous iro. Continue with dual antiplatelet therapy secondary to recent stenting. 2. Advance diet after capsule study is complete. We'll continue to follow. Assessment and plan a care discussed with Dr. Barney
[2017-12-16] MEDS: FAMOTIDINE 20 MG TAB PO SCH (11:48)
[2017-12-16] MEDS: METOPROLOL SUCCINATE (ER) 25 MG TAB.ER.24H PO SCH ×2 (11:49→11:58)
[2017-12-16] MEDS: ASPIRIN 81 MG PO SCH (11:58)
[2017-12-16] MEDS: HEPARIN SODIUM,PORCINE 5,000 UNIT/ML 1 ML VIAL SQ SCH ×2 (11:58→20:45)
[2017-12-16] MEDS: FUROSEMIDE 10 MG/ML 4 ML VIAL IV SCH ×2 (11:58→20:45)
--- NOTE | 2017-12-16 11:59 | P.PN ---
Subjective Progress Note Date: 12/16/17 Principal diagnosis: Acute hypoxemic respiratory failure secondary to acute systolic congestive heart failure This is a 41-year-old white male with history of cardiomyopathy, ischemic in nature, related to previous LA about 2 years ago. Patient required AICD placement, and he was recently at [facility] for issues related to his defibrillator, and apparently had a left leg abscess with bacteremia requiring high doses of daptomycin. Patient was admitted yesterday with mostly symptoms of shortness of breath, cough, and some vague chest pain and discomfort. Chest x-ray on admission showed interstitial edema, however based on the chest x-ray it is difficult to rule out underlying pneumonia. Patient was admitted, placed on diuretics, antibiotics, and he was seen by infectious disease on consultation. Last night, patient developed low blood pressure, and he was transferred to the ICU for possible starting the patient on norepinephrine. However he was given 1 bolus of 500 mL of 0.9 normal saline, and by the time he was transferred to the ICU, his blood pressure stabilizes. Did not require any pressors. Presently remains in the intensive care unit, and we plan to transfer him back to monitor bed on selective. Since admission the patient was seen by many consultants including infectious disease, and he was placed on vancomycin. He was also seen by nephrology for acute kidney injury and hyponatremia. Antibiotics frankel patient is now on vancomycin and aztreonam. Looking back at his chart, patient is known to have history of systolic congestive heart failure with ejection fraction of 20%. And his baseline creatinine is usually normal. During my evaluation, patient denied any headache , no blurred vision, no dizziness, some shortness of breath, no cough, no wheezing, no chest pain. No palpitations no nausea no vomiting no abdominal pain no melena no hematemesis no dysuria and no frequency no urgency. Continues to have a superficial ulceration on the anterior aspect of the right lower extremity just below the knee. Patient was reevaluated today on 12/12/2017, remains in the intensive care unit, continues to have some interstitial edema based on the chest x-ray findings, shortness of breath is slightly improved, patient had some neurological symptoms suggestive of TIA last night, underwent CT of the brain and CT angiography, he was noted to have normal CTA of the [place]. Patchy groundglass opacities in both lungs reflecting mostly congestive heart failure, doubt pneumonia. CBC is relatively normal except for hemoglobin of 8.7, no evidence of leukocytosis. Basic metabolic profile is relatively normal except for a low sodium of 130 and bicarb of 19. Renal profile showed a prerenal picture. BUN is 30 creatinine is 0.8 today the patient's neurological symptoms have resolved, they were mostly some right-sided weakness and numbness. Patient was reevaluated today on 12/13/2017, remains in the intensive care unit, feeling better clinically, chest x-ray is basically about the same showing diffuse interstitial edema, underlying pneumonia is not entirely ruled out and clinically felt to be less likely. Patient is breathing easier, no cough no wheezing, no shortness of breath at rest. CBC showed WBC count of 5.4 hemoglobin is 8.6 his basic metabolic profile is normal, BUN is 37 creatinine is 1.14. On 12/14/2017 patient is reevaluated in the intensive care unit. Denies any acute distress, denies worsening dyspnea, pulse ox on 2 L per nasal cannula is 98-99%, patient is afebrile,hemodynamically stable. Denies any chest pain, maintenance IV fluids 0.9 normal saline at a rate of 20 ML per hour, patient's urine, and blood cultures remain negative, he remains on aztreonam and vancomycin for possible underlying pneumonia, bacteremia,with sepsis. His labs were noted, the VBC 6.2, hemoglobin is 9.2, electrolytes are within normal limits, BUN is 41, creatinine 0.92, patient is developing prerenal azotemia. Still has 1+ pitting edema in bilateral lower extremities, isn't open wound on his right tibia, which is covered with a dressing, and ID service is following in regards to wound care. Denies any fever or chills, patient has a congested cough, times is able to bring up whitish color sputum. Lung sounds are positive for fine rales over anterior lobes, there are some scattered rhonchi bilaterally. Today's chest x-ray has been reviewed and shows diffuse vascular prominence and interstitial densities, consistent with persistent but improving interstitial pulmonary edema. Patient remains on IV diuretics, 40 mg every 8 hours, he is in -700 mL fluid balance, and his weight is down 5.2 kg in the last 24 hours. On 12/15/2017 patient seen in follow-up on selective care unit. He sitting up in the chair, room air pulse ox is 97%, afebrile, no chills, hemodynamically stable. No dyspnea, no chest pain. Today's labs were reviewed, no leukocytosis , WBC 6.2, hemoglobin is 9.5, BUN is 32, creatinine 0.70. He remains on IV Lasix, he is nonoliguric, his bilateral lower extremity edema is improving, no vomiting or diarrhea, he is tolerating oral intake. No active bleeding. On 12/16/2017 patient seen again in follow-up on selective care unit. He is having a capsule endoscopy. Has not had any recurrence of GI bleeding. Hemoglobin remained stable, its 9.4 on today's labs, no leukocytosis, BUN is 21 , creatinine 0.65, denies any dyspnea or chest pain, still has residual bilateral lower extremity edema, the Lasix was switched to oral Lasix yesterday , however in view of his residual peripheral edema, nephrology switched him back to IV Lasix, at 40 mg twice daily. Cultures remain negative, ID service is managing the antibiotics. No fever, no chills. Today's chest x-ray has been reviewed by Dr. Chavira, and patient has diffuse lung bronchial markings and prominent pulmonary vascular markings, this was compared to previous chest x-ray , and we feel that there is better aeration noted in upper lobes. Clinically patient is improving, denies any dyspnea, denies any chest pain, room air pulse ox is 97%. Objective - Vital Signs Vital signs: Vital Signs Temp 98.1 F 12/16/17 08:17 Pulse 103 H 12/16/17 08:17 Resp 18 12/16/17 08:17 BP 119/87 12/16/17 08:17 Pulse Ox 97 12/16/17 08:17 Intake & Output 12/15/17 12/16/17 12/16/17 18:59 06:59 18:59 Weight 109.7 kg Other: Voiding Method Indwelling Catheter Toilet Toilet Urinal Urinal - Exam Physical Exam revealed a 41-year-old white male, in no form of respiratory distress, on nasal cannula. Head: Atraumatic, normocephalic. HEENT:[Neck is supple.] [No neck masses.] [No thyromegaly.] [No JVD.] PERRLA, EOMI, no icterus, throat is clear, no oral thrush. Chest: [Diminished at the bases, with bibasilar crackles Cardiac Exam: [Distant S1 and S2, no S3 gallop, no murmur.] Abdomen: [Obese, Soft, nontender, no megaly, no rebound, no guarding, normal bowel sounds.] Extremities: [No clubbing, 1+ bipedal edema, no cyanosis.] Evidence of ulceration noted at the left calf region just below the left knee with minimal purulent drainage and minimal erythema surrounding the ulceration. Neurological Exam: [No focal neurologic deficit. Psychiatric: Normal mood, affect, and mental status examination. ] Lymphatics: No lymphadenopathy. - Labs CBC & Chem 7: 12/16/17 05:49 12/16/17 05:49 Labs: Abnormal Lab Results - Last 24 Hours (Table) 12/15/17 12/16/17 12/16/17 Range/Units 16:30 05:49 05:49 RBC 3.82 L (4.30-5.90) m/uL Hgb 9.4 L (13.0-17.5) gm/dL Hct 31.4 L (39.0-53.0) % MCH 24.6 L (25.0-35.0) pg MCHC 29.9 L (31.0-37.0) g/dL RDW 20.1 H (11.5-15.5) % Sodium 135 L (137-145) mmol/L BUN 21 H (9-20) mg/dL Creatinine 0.65 L (0.66-1.25) mg/dL POC Glucose (mg/dL) 113 H (75-99) mg/dL Calcium 8.2 L (8.4-10.2) mg/dL 12/16/17 Range/Units 11:13 RBC (4.30-5.90) m/uL Hgb (13.0-17.5) gm/dL Hct (39.0-53.0) % MCH (25.0-35.0) pg MCHC (31.0-37.0) g/dL RDW (11.5-15.5) % Sodium (137-145) mmol/L BUN (9-20) mg/dL Creatinine (0.66-1.25) mg/dL POC Glucose (mg/dL) 135 H (75-99) mg/dL Calcium (8.4-10.2) mg/dL Microbiology - Last 24 Hours (Table) 12/10/17 11:38 Blood Culture - Preliminary Blood No Growth after 120 hours Assessment and Plan Plan: Assessment: 1 acute systolic congestive heart failure and hypoxic respiratory failure secondary to CHF. 2 underlying pneumonia is not entirely ruled out, but felt to be less likely patient is on empiric antibiotics including vancomycin and aztreonam, suggested by infectious disease on the case. 3 severe ischemic cardiomyopathy and LV dysfunction with previous AICD placement. 4 left lower extremity abscess and recent episode of bacteremia treated recently with daptomycin, presently on vancomycin and aztreonam. 5 acute episode of hypotension secondary to profound LV dysfunction and diuretics. Possible some component of hypovolemia, strongly doubt sepsis causing his hypotension. Recommendation: Continue IV diuresis, continue current medical treatment, therapy per ID service recommendation, today's chest x-ray has been reviewed with Dr. Chavira, and better aeration noted in upper lobes, residual vascular congestion noted, in addition to bilateral lower extremity edema. But clinically patient denies any dyspnea, he is on room air. No fever, no chills, vital signs are stable. We'll continue to follow I performed a history & physical examination of the patient and discussed their management with my nurse practitioner, Beronica Núñez. I reviewed the nurse practitioner's note and agree with the documented findings and plan of care. Lung sounds are positive for minimal crackles at the bases. The findings and the impression was discussed with the patient. I attest to the documentation by the nurse practitioner. Time with Patient: Less than 30
[2017-12-16 16:47] LABS: Glucose,Whole Blood 178 mg/dL (75-99)
--- NOTE | 2017-12-16 17:03 | P.PN ---
Subjective This is a pleasant 41 years old male with past medical history of asthma, coronary artery disease with multiple vessel disease, heart failure, CVA/TIA, diabetes mellitus, GERD, hyperlipidemia, hypertension, osteoarthritis, pneumonia , sleep apnea on CPAP/BiPAP, chronic back pain, migraine, he had no hernia, rotator cuff tear, bronchitis, MRSA infection, he status post AICD, cardiac cath and stent, obesity. He presents because of dyspnea of 2 days' duration, associated with cough and scant phlegm as per patient were nonspecific in color. Associated with some chest tightness however the patient feels that from his shortness of breath. He also complained from diarrhea about 3-4 times yesterday, once today, with no associated abdominal pain no nausea vomiting were patient has epigastric tenderness Patient states that he is taking daptomycin for 2 weeks for now because he was at [facility] at that time heart attack and he needed cardiac pump which got infected and that's why he needed the daptomycin, he is not sure for how long he should be on daptomycin. He has PICC line on his right arm The ED was no noticed to be tachycardic with heart rate 107-112, rest of the vital signs are within normal limits. His WBC 5.9, hemoglobin 9.5, INR 1.4, sodium 132, potassium 4.4, creatinine 0.8, troponin is high at 0.2 (his previous troponins are always elevated between 0.05 and 1.6) UA was unremarkable for infection area from BMP is 11,700. EKG shows paced rhythm at 105 with QTC 433, chest x-ray shows new infiltrate could be related to acute pneumonia on both sides when the heart slightly enlarged. CT of the abdomen and pelvis without contrast showing urinary bladder wall thickening consistent with cystitis and mild ascites, with pleural effusions and cardiomegaly 12/11/2017 I saw and examined the patient today in the ICU, Patient was sent to the ICU overnight for suspicion of hypotension. His systolic blood pressure drops during sleep to 70s, over he goes up when he wakes up. Patient didn't need any pressors. Patient was awakened and in distress, is little bit short of breath and he says he is the same as he came in, No improvement or worsening. No chest pain. No more diarrhea or loose stools since admission. His sodium is down at 130. And creatinine slightly up from 0.8 to 1.1 ID consult is appreciated his antibiotics were changed from daptomycin to vancomycin and aztreonam. 12/12/2017 Patient still in the ICU, he still on dopamine to support his blood pressures and IV Lasix for fluid overload. His kidney function is improved from 1.1 to 0.8. Patient was suspected to have stroke yesterday overnight when he was noticed to have facial drop and lid drop, CT of the head was negative for acute hemorrhage or event. CT in general was also unremarkable. CTA was unremarkable eitherarea patient has patchy ground-glass opacity in both flanks, mostly CHF rather than pneumonia 12/13/2017 Patient still in the ICU, on no pressors , his BP is stable and he is considered to be transfered out of the ICU today to the general medical floor , he is on IV Lasix for fluid overload. His kidney function is improved from 1.1 to 0.8. Patient was suspected to have stroke2 nightsagowhen he was noticed to have facial drop and lid drop, CT of the head was negative for acute hemorrhage or event. CT in general was also unremarkable. CTA was unremarkable either, has patchy ground-glass opacity in both sides, mostly CHF rather than pneumonia 12/14/2017 Patient still feeling better today on no pressors. Vital sustainable. Afebrile. No chest pain. Mild dyspnea. Repeat chest x-ray shows CHF with improving pulmonary edema. Patient's hemoglobin stable but on the low side. Her profiles suggesting iron deficiency anemia. 12/15/2017 Patient is feeling better today. Vitals stable. Patient is afebrile. No chest pain. Mild dyspnea. Repeat chest x-ray shows CHF with improving pulmonary edema. Patient's with iron profile showing our in deficiency anemia. Is scheduled for capsule endoscopy tomorrow. Sugar was on the low side we decrease his Levemir from 25 to 20 units at night. PT/OT follow-up is: Pending. Patient is still on IV antibiotics, and ID are following the patient. 12/15/2017 atient is feeling better today. Vitals stable. Patient is afebrile. No chest pain. Mild dyspnea. Repeat chest x-ray shows CHF with improving pulmonary edema. Patient's with iron profile showing our in deficiency anemia. Is scheduled for capsule endoscopy tomorrow. Sugar was on the low side we decrease his Levemir from 25 to 20 units at night. PT/OT follow-up is: Pending. Patient is still on IV antibiotics, and ID are following the patient. capsule endoscopy is in process Objective - Vital Signs Vital signs: Vital Signs Temp 97.5 F L 12/16/17 12:18 Pulse 109 H 12/16/17 12:18 Resp 18 12/16/17 12:18 BP 117/75 12/16/17 12:18 Pulse Ox 92 L 12/16/17 12:18 Intake & Output 12/15/17 12/16/17 12/16/17 18:59 06:59 18:59 Weight 109.7 kg Other: Voiding Method Indwelling Catheter Toilet Toilet Urinal Urinal - Exam GENERAL: The patient is alert and oriented x3, not in any acute distress. Well developed, well nourished. HEENT: Pupils are round and equally reacting to light. EOMI. No scleral icterus. No conjunctival pallor. Normocephalic, atraumatic. No pharyngeal erythema. No thyromegaly. CARDIOVASCULAR: S1 and S2 present. No murmurs, rubs, or gallops. PULMONARY: Chest is clear to auscultation, no wheezing or crackles. ABDOMEN: Soft, nontender, nondistended, normoactive bowel sounds. No palpable organomegaly. MUSCULOSKELETAL: No joint swelling or deformity. EXTREMITIES: No cyanosis, clubbing, or pedal edema. NEUROLOGICAL: Gross neurological examination did not reveal any focal deficits. SKIN: No rashes. - Labs CBC & Chem 7: 12/16/17 05:49 12/16/17 05:49 Labs: Abnormal Lab Results - Last 24 Hours (Table) 12/16/17 12/16/17 12/16/17 Range/Units 05:49 05:49 11:13 RBC 3.82 L (4.30-5.90) m/uL Hgb 9.4 L (13.0-17.5) gm/dL Hct 31.4 L (39.0-53.0) % MCH 24.6 L (25.0-35.0) pg MCHC 29.9 L (31.0-37.0) g/dL RDW 20.1 H (11.5-15.5) % Sodium 135 L (137-145) mmol/L BUN 21 H (9-20) mg/dL Creatinine 0.65 L (0.66-1.25) mg/dL POC Glucose (mg/dL) 135 H (75-99) mg/dL Calcium 8.2 L (8.4-10.2) mg/dL 12/16/17 Range/Units 16:44 RBC (4.30-5.90) m/uL Hgb (13.0-17.5) gm/dL Hct (39.0-53.0) % MCH (25.0-35.0) pg MCHC (31.0-37.0) g/dL RDW (11.5-15.5) % Sodium (137-145) mmol/L BUN (9-20) mg/dL Creatinine (0.66-1.25) mg/dL POC Glucose (mg/dL) 178 H (75-99) mg/dL Calcium (8.4-10.2) mg/dL Microbiology - Last 24 Hours (Table) 12/10/17 11:38 Blood Culture - Final Blood No Growth after 144 hours Assessment and Plan Assessment: possible pneumonia Possible cystitis with thickened wall Diarrhea with some epigastric discomfort, could be reactive versus gastroenteritis Cardiomegaly with pleural effusions coronary artery disease with multiple vessel disease, he is status post AICD, cardiac cath and stent, heart failure chronically elevated troponin asthma CVA/TIA diabetes mellitus GERD hyperlipidemia hypertension sleep apnea on CPAP/BiPAP chronic back pain migraine h/o rotator cuff tear obesity U TIA/CVA, with right sided weakness and numbness, resolved Plan: Continue with the same treatment, continue symptomatic treatment. Resume home medication including insulin and pressure medication. Patient is on vancomycin and aztreonam for AICD infection as per patient. ID input is appreciated.cardiology consult is appreciated for chest tightness and positive troponins, history of CHF. sent for sputum culture on blood culture. Consult for pulmonary. Continue with aspirin and Plavix. Lasix was increased to 40 twice a day, .he feels the head and CTA were unremarkable. And DVT and GI prophylaxis. Also patient has drop in hemoglobin from 9.5 to 8.5, iron studies : Possible SALVATORE, B12 and FOBT: Pending. GI consult: Pending INR 1.4 0 Monocryl follow-up INR Further recommendations based on the course of the patient's Capsule endoscopy on 12/16/2017: pending results DVT prophylaxis on heparin GI prophylaxis on Pepcid PT/OT: Pending Prognosis is guarded
[2017-12-16] MEDS: NON-FORMULARY DRUG (Rosuvastatin Calcium [Crestor] 40 MG) PO SCH (20:45)
[2017-12-16] MEDS: CLOPIDOGREL 75 MG TAB PO SCH (20:45)
[2017-12-16 21:07] LABS: Glucose,Whole Blood 132 mg/dL (75-99)
[2017-12-16] MEDS: INSULIN DETEMIR 100 UNIT/ML 10 ML VIAL SQ SCH (21:15)
[2017-12-17] MEDS: AZTREONAM 2 GM in SODIUM CHLORIDE 0.9% 100 ML IVPB SCH ×3 (04:31→14:57)
[2017-12-17 06:14] LABS: Glucose,Whole Blood 132 mg/dL (75-99)
[2017-12-17] MEDS: INSULIN ASPART 100 UNIT/ML 1 ML 10 ML VIAL SQ SCH ×7 (06:23→20:58)
[2017-12-17] MEDS: MIDODRINE 5 MG TAB PO SCH ×3 (08:20→17:18)
[2017-12-17] MEDS: METOPROLOL SUCCINATE (ER) 25 MG TAB.ER.24H PO SCH (08:20)
[2017-12-17] MEDS: ASPIRIN 81 MG PO SCH (08:21)
[2017-12-17] MEDS: FUROSEMIDE 10 MG/ML 4 ML VIAL IV SCH ×2 (08:21→19:46)
[2017-12-17] MEDS: HEPARIN SODIUM,PORCINE 5,000 UNIT/ML 1 ML VIAL SQ SCH ×2 (08:21→19:46)
--- NOTE | 2017-12-17 08:55 | P.PN ---
Subjective Patient is seen in follow-up for acute kidney injury and volume overload. Acute kidney injury has resolved. He is currently maintained on Lasix 40 mg IV twice daily orally. He is nonoliguric. Edema is improving. Oral intake is good. No vomiting or diarrhea. Denies chest pain or shortness of breath. Patient has systolic CHF with ejection fraction of 20-25%. No active bleeding. Vital signs are stable. General: The patient appeared well nourished and normally developed. HEENT: Head exam is unremarkable. Neck is without jugular venous distension. LUNGS: Lungs are clear to auscultation and percussion. Breath sounds decreased. HEART: Rate and Rhythm are regular. First and second heart sounds normal. No murmurs, rubs or gallops. ABDOMEN: Abdominal exam reveals normal bowel sounds. Non-tender and non- distended. No evidence of peritonitis. EXTREMITITES: 1+ edema. Objective - Vital Signs Vital signs: Vital Signs Temp 98.1 F 12/16/17 20:00 Pulse 109 H 12/17/17 04:00 Resp 20 12/17/17 04:00 BP 125/70 12/17/17 04:00 Pulse Ox 100 12/17/17 04:00 Intake & Output 12/16/17 12/17/17 12/17/17 18:59 06:59 18:59 Output Total 250 Balance -250 Weight 109.7 kg Output: Urine 250 Other: Voiding Method Toilet Toilet Urinal Urinal # Voids 0 - Labs CBC & Chem 7: 12/16/17 05:49 12/16/17 05:49 Labs: Abnormal Lab Results - Last 24 Hours (Table) 12/16/17 12/16/17 12/16/17 Range/Units 11:13 16:44 21:05 POC Glucose (mg/dL) 135 H 178 H 132 H (75-99) mg/dL 12/17/17 Range/Units 06:03 POC Glucose (mg/dL) 132 H (75-99) mg/dL Microbiology - Last 24 Hours (Table) 12/10/17 11:38 Blood Culture - Final Blood No Growth after 144 hours Assessment and Plan Plan: Assessment: 1. Nonoliguric acute kidney injury secondary to ATN secondary to cardiorenal syndrome and hypotension. Resolved. 2. Volume overload. Improving. 3. Systolic CHF with ejection fraction of 20-25%. Status post AICD placement. 4. Hypervolemic hyponatremia. Improved. 5. Insulin-dependent diabetes mellitus. 6. Anemia. Severe iron deficiency noted - status post 3 doses of IV iron. 7. Hypotension related to underlying cardiac status. Maintained on midodrine. Cortisol level normal. 8. Left leg abscess maintained on IV antibiotics. Infectious disease following. Plan: Maintain IV Lasix 40 mg IV twice daily. 1500 mL fluid restriction. Avoid nephrotoxic agents and hypotensive episodes. Capsule endoscopy results pending.
[2017-12-17] MEDS ORDERED: VANCOMYCIN TROUGH DUE 1 EACH MISC MISCELLANE ONE (09:00)
[2017-12-17] MEDS: SODIUM FERRIC GLUCONAT-SUCROSE 125 MG in SODIUM CHLORIDE 0.9% 100 ML IVPB SCH (09:21)
[2017-12-17 09:26] LABS: Anisocytosis Moderate; Basophils % (A) 1 %; Eosinophils # (A) 0.4 k/uL (0-0.7); Eosinophils % (A) 7 %; HCT 33.5 % (39.0-53.0); HGB 10.1 gm/dL (13.0-17.5); Hypochromasia Marked; Lymphocytes # (A) 1.2 k/uL (1.0-4.8); Lymphocytes % (A) 22 %; MCH 25.2 pg (25.0-35.0); MCHC 30.2 g/dL (31.0-37.0); MCV 83.6 fL (80.0-100.0); Mean Platelet Volume 7.3; Microcytosis Slight; Monocytes # (A) 0.2 k/uL (0-1.0); Monocytes % (A) 4 %; Neutrophils # (A) 3.7 k/uL (1.3-7.7); Neutrophils % (A) 65 %; Platelet Count 383 k/uL (150-450); Poikilocytosis Moderate; RBC 4.01 m/uL (4.30-5.90); RDW 20.6 % (11.5-15.5); WBC 5.7 k/uL (3.8-10.6)
[2017-12-17 09:44] LABS: Anion Gap 10 mmol/L; Blood Urea Nitrogen 20 mg/dL (9-20); Calcium 8.5 mg/dL (8.4-10.2); Carbon Dioxide 24 mmol/L (22-30); Chloride 103 mmol/L (98-107); Glucose 110 mg/dL (74-99); Potassium 4.6 mmol/L (3.5-5.1); Sodium 137 mmol/L (137-145)
[2017-12-17 10:13] VITALS: BMI 39.0
[2017-12-17] MEDS: VANCOMYCIN 1,750 MG in SODIUM CHLORIDE 0.9% 500 ML IVPB SCH (11:01)
--- NOTE | 2017-12-17 11:28 | P.PN ---
Subjective Progress Note Date: 12/17/17 Principal diagnosis: Anemia Status post capsule endoscopy. No episodes of hematemesis hematochezia melena. Hemoglobin 10.1. Objective - Vital Signs Vital signs: Vital Signs Temp 98.2 F 12/17/17 08:00 Pulse 106 H 12/17/17 08:00 Resp 18 12/17/17 08:00 BP 117/78 12/17/17 08:00 Pulse Ox 96 12/17/17 08:00 Intake & Output 12/16/17 12/17/17 12/17/17 18:59 06:59 18:59 Output Total 250 Balance -250 Weight 109.7 kg 109.7 kg Output: Urine 250 Other: Voiding Method Toilet Toilet Urinal Urinal # Voids 0 - Exam General appearance: The patient is alert, oriented, in no acute distress. HET: Head is normocephalic and atraumatic. Pupils are equal and reactive. Oropharynx is clear without lesions. Neck: Supple without lymphadenopathy. Trachea midline. Heart: S1 S2. Lungs: No crackles or wheezes are heard. Abdomen: Soft, nontender, nondistended with bowel sounds. No peritoneal signs. No palpable organomegaly or masses. - Labs CBC & Chem 7: 12/17/17 08:54 12/17/17 08:54 Labs: Abnormal Lab Results - Last 24 Hours (Table) 12/16/17 12/16/17 12/17/17 Range/Units 16:44 21:05 06:03 RBC (4.30-5.90) m/uL Hgb (13.0-17.5) gm/dL Hct (39.0-53.0) % MCHC (31.0-37.0) g/dL RDW (11.5-15.5) % Glucose (74-99) mg/dL POC Glucose (mg/dL) 178 H 132 H 132 H (75-99) mg/dL 12/17/17 12/17/17 Range/Units 08:54 08:54 RBC 4.01 L (4.30-5.90) m/uL Hgb 10.1 L (13.0-17.5) gm/dL Hct 33.5 L (39.0-53.0) % MCHC 30.2 L (31.0-37.0) g/dL RDW 20.6 H (11.5-15.5) % Glucose 110 H (74-99) mg/dL POC Glucose (mg/dL) (75-99) mg/dL Microbiology - Last 24 Hours (Table) 12/10/17 11:38 Blood Culture - Final Blood No Growth after 144 hours Assessment and Plan (1) Iron deficiency anemia Narrative/Plan: 41-year-old male with extensive cardiac history AICD left lower extremity wound admitted with CHF possible pneumonia recent hospitalization for bacteremia receiving IV antibiotic therapy in hopes to salvage AICD with persistent normocytic chromic anemia without overt bleeding. Recent EGD colonoscopy evaluation 10 days ago for evaluation of anemia and positive Hemoccult indicated Diaz's esophagus, colonoscopy within normal limits. Underlying small bowel source of anemia cannot be excluded. Current Visit: Yes Status: Acute Code(s): D50.9 - IRON DEFICIENCY ANEMIA, UNSPECIFIED SNOMED Code(s): 27651826 (2) Bacteremia Current Visit: Yes Status: Acute Code(s): R78.81 - BACTEREMIA SNOMED Code( s): 9460312 (3) Leg wound, left Current Visit: Yes Status: Acute Code(s): S81.802A - UNSPECIFIED OPEN WOUND , LEFT LOWER LEG, INITIAL ENCOUNTER SNOMED Code(s): 223329860 (4) Cardiomyopathy Current Visit: Yes Status: Acute Code(s): I42.9 - CARDIOMYOPATHY, UNSPECIFIED SNOMED Code(s): 96973825 (5) Congestive heart failure Current Visit: Yes Status: Acute Code(s): I50.9 - HEART FAILURE, UNSPECIFIED SNOMED Code(s): 24335073 (6) AICD (automatic cardioverter/defibrillator) present Current Visit: No Status: Acute Code(s): Z95.810 - PRESENCE OF AUTOMATIC ( IMPLANTABLE) CARDIAC DEFIBRILLATOR SNOMED Code(s): 464296870 (7) CAD (coronary artery disease) Current Visit: Yes Status: Acute Code(s): I25.10 - ATHSCL HEART DISEASE OF [place] CORONARY ARTERY W/O ANG PCTRS SNOMED Code(s): 78814975 Plan: 1. Continue with present medical therapy. We'll review capsule study today with results. Assessment and plan a care discussed with Dr. Barney
[2017-12-17 11:45] LABS: Glucose,Whole Blood 102 mg/dL (75-99)
--- NOTE | 2017-12-17 14:33 | P.PN ---
Progress Note - Text Progress Note Date: 12/17/17 Preliminary evaluation of small bowel capsule endoscopy no evidence of active bleeding.
[2017-12-17] MEDS: traMADol 50 MG TAB PO PRN (14:55)
--- NOTE | 2017-12-17 15:37 | P.PN ---
Subjective Progress Note Date: 12/17/17 Principal diagnosis: Acute hypoxemic respiratory failure secondary to acute systolic congestive heart failure This is a 41-year-old white male with history of cardiomyopathy, ischemic in nature, related to previous OR about 2 years ago. Patient required AICD placement, and he was recently at [facility] for issues related to his defibrillator, and apparently had a left leg abscess with bacteremia requiring high doses of daptomycin. Patient was admitted yesterday with mostly symptoms of shortness of breath, cough, and some vague chest pain and discomfort. Chest x-ray on admission showed interstitial edema, however based on the chest x-ray it is difficult to rule out underlying pneumonia. Patient was admitted, placed on diuretics, antibiotics, and he was seen by infectious disease on consultation. Last night, patient developed low blood pressure, and he was transferred to the ICU for possible starting the patient on norepinephrine. However he was given 1 bolus of 500 mL of 0.9 normal saline, and by the time he was transferred to the ICU, his blood pressure stabilizes. Did not require any pressors. Presently remains in the intensive care unit, and we plan to transfer him back to monitor bed on selective. Since admission the patient was seen by many consultants including infectious disease, and he was placed on vancomycin. He was also seen by nephrology for acute kidney injury and hyponatremia. Antibiotics frankel patient is now on vancomycin and aztreonam. Looking back at his chart, patient is known to have history of systolic congestive heart failure with ejection fraction of 20%. And his baseline creatinine is usually normal. During my evaluation, patient denied any headache , no blurred vision, no dizziness, some shortness of breath, no cough, no wheezing, no chest pain. No palpitations no nausea no vomiting no abdominal pain no melena no hematemesis no dysuria and no frequency no urgency. Continues to have a superficial ulceration on the anterior aspect of the right lower extremity just below the knee. Patient was reevaluated today on 12/12/2017, remains in the intensive care unit, continues to have some interstitial edema based on the chest x-ray findings, shortness of breath is slightly improved, patient had some neurological symptoms suggestive of TIA last night, underwent CT of the brain and CT angiography, he was noted to have normal CTA of the [facility] [place]. Patchy groundglass opacities in both lungs reflecting mostly congestive heart failure, doubt pneumonia. CBC is relatively normal except for hemoglobin of 8.7, no evidence of leukocytosis. Basic metabolic profile is relatively normal except for a low sodium of 130 and bicarb of 19. Renal profile showed a prerenal picture. BUN is 30 creatinine is 0.8 today the patient's neurological symptoms have resolved, they were mostly some right-sided weakness and numbness. Patient was reevaluated today on 12/13/2017, remains in the intensive care unit, feeling better clinically, chest x-ray is basically about the same showing diffuse interstitial edema, underlying pneumonia is not entirely ruled out and clinically felt to be less likely. Patient is breathing easier, no cough no wheezing, no shortness of breath at rest. CBC showed WBC count of 5.4 hemoglobin is 8.6 his basic metabolic profile is normal, BUN is 37 creatinine is 1.14. On 12/14/2017 patient is reevaluated in the intensive care unit. Denies any acute distress, denies worsening dyspnea, pulse ox on 2 L per nasal cannula is 98-99%, patient is afebrile,hemodynamically stable. Denies any chest pain, maintenance IV fluids 0.9 normal saline at a rate of 20 ML per hour, patient's urine, and blood cultures remain negative, he remains on aztreonam and vancomycin for possible underlying pneumonia, bacteremia,with sepsis. His labs were noted, the VBC 6.2, hemoglobin is 9.2, electrolytes are within normal limits, BUN is 41, creatinine 0.92, patient is developing prerenal azotemia. Still has 1+ pitting edema in bilateral lower extremities, isn't open wound on his right tibia, which is covered with a dressing, and ID service is following in regards to wound care. Denies any fever or chills, patient has a congested cough, times is able to bring up whitish color sputum. Lung sounds are positive for fine rales over anterior lobes, there are some scattered rhonchi bilaterally. Today's chest x-ray has been reviewed and shows diffuse vascular prominence and interstitial densities, consistent with persistent but improving interstitial pulmonary edema. Patient remains on IV diuretics, 40 mg every 8 hours, he is in -700 mL fluid balance, and his weight is down 5.2 kg in the last 24 hours. On 12/15/2017 patient seen in follow-up on selective care unit. He sitting up in the chair, room air pulse ox is 97%, afebrile, no chills, hemodynamically stable. No dyspnea, no chest pain. Today's labs were reviewed, no leukocytosis , WBC 6.2, hemoglobin is 9.5, BUN is 32, creatinine 0.70. He remains on IV Lasix, he is nonoliguric, his bilateral lower extremity edema is improving, no vomiting or diarrhea, he is tolerating oral intake. No active bleeding. On 12/16/2017 patient seen again in follow-up on selective care unit. He is having a capsule endoscopy. Has not had any recurrence of GI bleeding. Hemoglobin remained stable, its 9.4 on today's labs, no leukocytosis, BUN is 21 , creatinine 0.65, denies any dyspnea or chest pain, still has residual bilateral lower extremity edema, the Lasix was switched to oral Lasix yesterday , however in view of his residual peripheral edema, nephrology switched him back to IV Lasix, at 40 mg twice daily. Cultures remain negative, ID service is managing the antibiotics. No fever, no chills. Today's chest x-ray has been reviewed by Dr. Chavira, and patient has diffuse lung bronchial markings and prominent pulmonary vascular markings, this was compared to previous chest x-ray , and we feel that there is better aeration noted in upper lobes. Clinically patient is improving, denies any dyspnea, denies any chest pain, room air pulse ox is 97%. On 12/17/2017 patient seen again in follow-up on selective care unit. He denies any worsening dyspnea,, comfortable, lung sounds are clear to auscultation, no rhonchi, no wheezes, no rales. Room air pulse ox is 95%, he is afebrile, hemodynamically stable, no cough, no phlegm production. He continues to diurese, maintaining negative fluid balance. No further episodes of bleeding, patient underwent capsule endoscopy, and he is awaiting to with the GI service today. His hemoglobin is 10.1 days labs. Renal profile and electrolytes are all within normal limits. From what she is dosing the IV diuretics, patient remains at 40 mg every 12 hours. Cultures remain negative. Objective - Vital Signs Vital signs: Vital Signs Temp 97.3 F L 12/17/17 15:10 Pulse 106 H 12/17/17 15:10 Resp 18 12/17/17 15:10 BP 114/85 12/17/17 15:10 Pulse Ox 95 12/17/17 15:10 Intake & Output 12/16/17 12/17/17 12/17/17 18:59 06:59 18:59 Output Total 250 Balance -250 Weight 109.7 kg 109.7 kg Output: Urine 250 Other: Voiding Method Toilet Toilet Urinal Urinal # Voids 0 - Exam Physical Exam revealed a 41-year-old white male, in no form of respiratory distress, on nasal cannula. Head: Atraumatic, normocephalic. HEENT:[Neck is supple.] [No neck masses.] [No thyromegaly.] [No JVD.] PERRLA, EOMI, no icterus, throat is clear, no oral thrush. Chest: [Clear breath sounds Cardiac Exam: [Distant S1 and S2, no S3 gallop, no murmur.] Abdomen: [Obese, Soft, nontender, no megaly, no rebound, no guarding, normal bowel sounds.] Extremities: [No clubbing, 1+ bipedal edema, no cyanosis.] Evidence of ulceration noted at the left calf region just below the left knee with minimal purulent drainage and minimal erythema surrounding the ulceration. Neurological Exam: [No focal neurologic deficit. Psychiatric: Normal mood, affect, and mental status examination. ] Lymphatics: No lymphadenopathy. - Labs CBC & Chem 7: 12/17/17 08:54 12/17/17 08:54 Labs: Abnormal Lab Results - Last 24 Hours (Table) 12/16/17 12/16/17 12/17/17 Range/Units 16:44 21:05 06:03 RBC (4.30-5.90) m/uL Hgb (13.0-17.5) gm/dL Hct (39.0-53.0) % MCHC (31.0-37.0) g/dL RDW (11.5-15.5) % Glucose (74-99) mg/dL POC Glucose (mg/dL) 178 H 132 H 132 H (75-99) mg/dL 12/17/17 12/17/17 12/17/17 Range/Units 08:54 08:54 11:42 RBC 4.01 L (4.30-5.90) m/uL Hgb 10.1 L (13.0-17.5) gm/dL Hct 33.5 L (39.0-53.0) % MCHC 30.2 L (31.0-37.0) g/dL RDW 20.6 H (11.5-15.5) % Glucose 110 H (74-99) mg/dL POC Glucose (mg/dL) 102 H (75-99) mg/dL Microbiology - Last 24 Hours (Table) 12/10/17 11:38 Blood Culture - Final Blood No Growth after 144 hours Assessment and Plan Plan: Assessment: 1 acute systolic congestive heart failure and hypoxic respiratory failure secondary to CHF. 2 underlying pneumonia is not entirely ruled out, but felt to be less likely patient is on empiric antibiotics including vancomycin and aztreonam, suggested by infectious disease on the case. 3 severe ischemic cardiomyopathy and LV dysfunction with previous AICD placement. 4 left lower extremity abscess and recent episode of bacteremia treated recently with daptomycin, presently on vancomycin and aztreonam. 5 acute episode of hypotension secondary to profound LV dysfunction and diuretics. Possible some component of hypovolemia, strongly doubt sepsis causing his hypotension. Recommendation: Continue pneumatic therapy per ID service recommendations. Cultures are negative. No fever, no chills, no chest congestion or phlegm production. Clear lung sounds, no acute events overnight, no further episodes of bleeding. IV diuretics per nephrology service, patient still has some swelling in his bilateral lower extremities. Overall stable, we'll see the patient on as- needed basis. I performed a history & physical examination of the patient and discussed their management with my nurse practitioner, Beronica Núñez. I reviewed the nurse practitioner's note and agree with the documented findings and plan of care. Lung sounds are clear. The findings and the impression was discussed with the patient. I attest to the documentation by the nurse practitioner. Time with Patient: Less than 30
[2017-12-17 17:01] LABS: Glucose,Whole Blood 101 mg/dL (75-99)
--- NOTE | 2017-12-17 19:45 | P.PN ---
Subjective This is a pleasant 41 years old male with past medical history of asthma, coronary artery disease with multiple vessel disease, heart failure, CVA/TIA, diabetes mellitus, GERD, hyperlipidemia, hypertension, osteoarthritis, pneumonia , sleep apnea on CPAP/BiPAP, chronic back pain, migraine, he had no hernia, rotator cuff tear, bronchitis, MRSA infection, he status post AICD, cardiac cath and stent, obesity. He presents because of dyspnea of 2 days' duration, associated with cough and scant phlegm as per patient were nonspecific in color. Associated with some chest tightness however the patient feels that from his shortness of breath. He also complained from diarrhea about 3-4 times yesterday, once today, with no associated abdominal pain no nausea vomiting were patient has epigastric tenderness Patient states that he is taking daptomycin for 2 weeks for now because he was at [facility] at that time heart attack and he needed cardiac pump which got infected and that's why he needed the daptomycin, he is not sure for how long he should be on daptomycin. He has PICC line on his right arm The ED was no noticed to be tachycardic with heart rate 107-112, rest of the vital signs are within normal limits. His WBC 5.9, hemoglobin 9.5, INR 1.4, sodium 132, potassium 4.4, creatinine 0.8, troponin is high at 0.2 (his previous troponins are always elevated between 0.05 and 1.6) UA was unremarkable for infection area from BMP is 11,700. EKG shows paced rhythm at 105 with QTC 433, chest x-ray shows new infiltrate could be related to acute pneumonia on both sides when the heart slightly enlarged. CT of the abdomen and pelvis without contrast showing urinary bladder wall thickening consistent with cystitis and mild ascites, with pleural effusions and cardiomegaly 12/11/2017 I saw and examined the patient today in the ICU, Patient was sent to the ICU overnight for suspicion of hypotension. His systolic blood pressure drops during sleep to 70s, over he goes up when he wakes up. Patient didn't need any pressors. Patient was awakened and in distress, is little bit short of breath and he says he is the same as he came in, No improvement or worsening. No chest pain. No more diarrhea or loose stools since admission. His sodium is down at 130. And creatinine slightly up from 0.8 to 1.1 ID consult is appreciated his antibiotics were changed from daptomycin to vancomycin and aztreonam. 12/12/2017 Patient still in the ICU, he still on dopamine to support his blood pressures and IV Lasix for fluid overload. His kidney function is improved from 1.1 to 0.8. Patient was suspected to have stroke yesterday overnight when he was noticed to have facial drop and lid drop, CT of the head was negative for acute hemorrhage or event. CT in general was also unremarkable. CTA was unremarkable eitherarea patient has patchy ground-glass opacity in both flanks, mostly CHF rather than pneumonia 12/13/2017 Patient still in the ICU, on no pressors , his BP is stable and he is considered to be transfered out of the ICU today to the general medical floor , he is on IV Lasix for fluid overload. His kidney function is improved from 1.1 to 0.8. Patient was suspected to have stroke2 nightsagowhen he was noticed to have facial drop and lid drop, CT of the head was negative for acute hemorrhage or event. CT in general was also unremarkable. CTA was unremarkable either, has patchy ground-glass opacity in both sides, mostly CHF rather than pneumonia 12/14/2017 Patient still feeling better today on no pressors. Vital sustainable. Afebrile. No chest pain. Mild dyspnea. Repeat chest x-ray shows CHF with improving pulmonary edema. Patient's hemoglobin stable but on the low side. Her profiles suggesting iron deficiency anemia. 12/15/2017 Patient is feeling better today. Vitals stable. Patient is afebrile. No chest pain. Mild dyspnea. Repeat chest x-ray shows CHF with improving pulmonary edema. Patient's with iron profile showing our in deficiency anemia. Is scheduled for capsule endoscopy tomorrow. Sugar was on the low side we decrease his Levemir from 25 to 20 units at night. PT/OT follow-up is: Pending. Patient is still on IV antibiotics, and ID are following the patient. 12/15/2017 atient is feeling better today. Vitals stable. Patient is afebrile. No chest pain. Mild dyspnea. Repeat chest x-ray shows CHF with improving pulmonary edema. Patient's with iron profile showing our in deficiency anemia. Is scheduled for capsule endoscopy tomorrow. Sugar was on the low side we decrease his Levemir from 25 to 20 units at night. PT/OT follow-up is: Pending. Patient is still on IV antibiotics, and ID are following the patient. capsule endoscopy is in process 12/17/2017 pt is mildly dyspneic , however his lung exam looks better, pt feels better , capsule endoscopy came back negative , pt most likely has SALVATORE secondary to absoprion problems which may be related to his diagonsis of heart failure however he needs to rule out celiac disease which can be done as outpt, Objective - Vital Signs Vital signs: Vital Signs Temp 97.3 F L 12/17/17 15:10 Pulse 106 H 12/17/17 15:10 Resp 18 12/17/17 15:10 BP 114/85 12/17/17 15:10 Pulse Ox 95 12/17/17 15:10 Intake & Output 12/17/17 12/17/17 12/18/17 06:59 18:59 06:59 Output Total 250 Balance -250 Weight 109.7 kg 109.7 kg Output: Urine 250 Other: Voiding Method Toilet Urinal # Voids 0 - Exam GENERAL: The patient is alert and oriented x3, not in any acute distress. Well developed, well nourished. HEENT: Pupils are round and equally reacting to light. EOMI. No scleral icterus. No conjunctival pallor. Normocephalic, atraumatic. No pharyngeal erythema. No thyromegaly. CARDIOVASCULAR: S1 and S2 present. No murmurs, rubs, or gallops. PULMONARY: Chest is clear to auscultation, no wheezing or crackles. ABDOMEN: Soft, nontender, nondistended, normoactive bowel sounds. No palpable organomegaly. MUSCULOSKELETAL: No joint swelling or deformity. EXTREMITIES: No cyanosis, clubbing, or pedal edema. NEUROLOGICAL: Gross neurological examination did not reveal any focal deficits. SKIN: No rashes. - Labs CBC & Chem 7: 12/17/17 08:54 12/17/17 08:54 Labs: Abnormal Lab Results - Last 24 Hours (Table) 12/16/17 12/17/17 12/17/17 Range/Units 21:05 06:03 08:54 RBC 4.01 L (4.30-5.90) m/uL Hgb 10.1 L (13.0-17.5) gm/dL Hct 33.5 L (39.0-53.0) % MCHC 30.2 L (31.0-37.0) g/dL RDW 20.6 H (11.5-15.5) % Glucose (74-99) mg/dL POC Glucose (mg/dL) 132 H 132 H (75-99) mg/dL 12/17/17 12/17/17 12/17/17 Range/Units 08:54 11:42 16:53 RBC (4.30-5.90) m/uL Hgb (13.0-17.5) gm/dL Hct (39.0-53.0) % MCHC (31.0-37.0) g/dL RDW (11.5-15.5) % Glucose 110 H (74-99) mg/dL POC Glucose (mg/dL) 102 H 101 H (75-99) mg/dL Assessment and Plan Assessment: possible pneumonia Possible cystitis with thickened wall Diarrhea with some epigastric discomfort, could be reactive versus gastroenteritis Cardiomegaly with pleural effusions coronary artery disease with multiple vessel disease, he is status post AICD, cardiac cath and stent, heart failure chronically elevated troponin asthma CVA/TIA diabetes mellitus GERD hyperlipidemia hypertension sleep apnea on CPAP/BiPAP chronic back pain migraine h/o rotator cuff tear obesity U TIA/CVA, with right sided weakness and numbness, resolved Plan: Continue with the same treatment, continue symptomatic treatment. Resume home medication including insulin and pressure medication. Patient is on vancomycin and aztreonam for AICD infection as per patient. ID input is appreciated.cardiology consult is appreciated for chest tightness and positive troponins, history of CHF. sent for sputum culture on blood culture. Consult for pulmonary. Continue with aspirin and Plavix. Lasix was increased to 40 twice a day, .he feels the head and CTA were unremarkable. And DVT and GI prophylaxis. Also patient has drop in hemoglobin from 9.5 to 8.5, iron studies : severe SALVATORE, B12 and FOBT: Pending. GI consult: negative capsule endoscopy INR 1.4 0 Monocryl follow-up INR Further recommendations based on the course of the patient's DVT prophylaxis on heparin GI prophylaxis on Pepcid PT/OT: Pending Prognosis is guarded
[2017-12-17] MEDS: NON-FORMULARY DRUG (Rosuvastatin Calcium [Crestor] 40 MG) PO SCH (19:46)
[2017-12-17] MEDS: CLOPIDOGREL 75 MG TAB PO SCH (19:46)
[2017-12-17 20:46] LABS: Glucose,Whole Blood 90 mg/dL (75-99)
[2017-12-17] MEDS: GABAPENTIN 400 MG CAP PO SCH (20:57)
[2017-12-17] MEDS: FERROUS SULFATE 325 MG TAB PO SCH (20:58)
[2017-12-17] MEDS: PRIMIDONE 250 MG TAB PO SCH (20:58)
[2017-12-17] MEDS: INSULIN DETEMIR 100 UNIT/ML 10 ML VIAL SQ SCH (20:58)
[2017-12-17] MEDS ORDERED: ARIPiprazole 15 MG TAB PO SCH (21:00)
[2017-12-17] MEDS: VANCOMYCIN 1,500 MG in SODIUM CHLORIDE 0.9% 250 ML IVPB SCH (21:00)
--- NOTE | 2017-12-17 23:02 | P.PN ---
Subjective Progress Note Date: 12/17/17 41-year-old male presented to hospital with chest pain and progressive shortness of breath poor exercise tolerance generalized malaise and symptoms with nausea, some dry heaves. He does relate that he had a minimal cough with some aching much sputum production was feeling progressively worse. At the present to the emergency center and was admitted for treatment of underlying coronary artery disease. The patient has a extensive past medical history with coronary artery disease, MD stroke diabetes hypertension and cardiac dysrhythmia. Apparently 2 years ago patient suffered from Myocardial infarction at that point time requiring AICD replaced. Recently hospitalized at outside facility and there he had evidence of difficulties with abscess to his left leg from the data that we have so far the patient was bacteremic and is now being treated with daptomycin and high-dose with overall goal for salvage of his AICD. The patient presented to this facility with chest pain and shortness of breath and cough, is feeling somewhat more poorly and infectious disease consult was requested regarding his antibiotic therapy. The patient does feel poorly and the nursing staff relates that he is not feeling as well today as he was even a day ago. 12/11/2017 patient was moved to ICU due to chest pain and now feeling slightly better but has developed nausea and emesis, but not hypotension. 12/14/2017 patient has improved and is no longer ICU patient, has had effective diuresis and feels much better is anticipating discharge soon. Afebrile and denies new syptoms. 12/15/2017 patient is doing well out of the ICU. His shortness of breath is improved. Denying abdominal pain. Appetite is going well. He remains a significant anemia. He has been evaluated by gastroenterology and a capsule study as been planned to evaluate for further etiology of gastrointestinal bleeding. His strength is improving, he is having no further nausea or emesis. Chest pain is resolved and his shortness of breath is improved. He has had a significant diuresis which is also been very helpful. 12/17/2017 patient is feeling considerably better other than some lower extremity edema He is denying difficulties such a fever or chills, less short of breath Objective - Vital Signs Vital signs: Vital Signs Temp 98.4 F 12/17/17 20:00 Pulse 106 H 12/17/17 20:00 Resp 18 12/17/17 20:00 BP 110/56 12/17/17 20:00 Pulse Ox 97 12/17/17 20:00 Intake & Output 12/17/17 12/17/17 12/18/17 06:59 18:59 06:59 Output Total 250 0 Balance -250 0 Weight 109.7 kg 109.7 kg 109.7 kg Output: Urine 250 0 Other: Voiding Method Toilet Toilet Urinal Urinal # Voids 0 0 - Exam 41-year-old male who appears considerably older than his stated age. Patient is not diaphoretic and is not in acute distress but does state he feels poorly HEENT: Anicteric conjunctiva are pink and moist nasal mucosa grossly intact without significant lesions, there is no thrush. Neck: The neck is supple without significant lymphadenopathy or thyromegaly. Lungs: Symmetrical air entry is noted, basilar crackles resolved a few expiratory wheezes are scattered no acute bronchial sounds no dullness or egophony Heart: Regular without audible S1 and S2 no S3 soft S4 no murmur click or rub Abdomen: Obese, Positive bowel sounds soft and nontender without palpable masses or organomegaly. There was no guarding or rebound. Extremities: Upper extremities intact IV sites intact. PICC line left arm without tenderness erythema crepitus or fluctuance. Lower extremities have some trace edema. The abscess on the left calf area is nearly resolved only minimal erythema evidence of granulation no ascending erythema no fluctuance or necrosis Neuro: Awake alert oriented to person place and time. There are no acute new gross focal sensory motor deficits. - Labs CBC & Chem 7: 12/17/17 08:54 12/17/17 08:54 Labs: Abnormal Lab Results - Last 24 Hours (Table) 12/17/17 12/17/17 12/17/17 Range/Units 06:03 08:54 08:54 RBC 4.01 L (4.30-5.90) m/uL Hgb 10.1 L (13.0-17.5) gm/dL Hct 33.5 L (39.0-53.0) % MCHC 30.2 L (31.0-37.0) g/dL RDW 20.6 H (11.5-15.5) % Glucose 110 H (74-99) mg/dL POC Glucose (mg/dL) 132 H (75-99) mg/dL 12/17/17 12/17/17 Range/Units 11:42 16:53 RBC (4.30-5.90) m/uL Hgb (13.0-17.5) gm/dL Hct (39.0-53.0) % MCHC (31.0-37.0) g/dL RDW (11.5-15.5) % Glucose (74-99) mg/dL POC Glucose (mg/dL) 102 H 101 H (75-99) mg/dL Laboratory Results WBC 5.7 k/uL (3.8-10.6) 12/17/17 08:54 RBC 4.01 m/uL (4.30-5.90) L 12/17/17 08:54 Hgb 10.1 gm/dL (13.0-17.5) L 12/17/17 08:54 Hct 33.5 % (39.0-53.0) L 12/17/17 08:54 MCV 83.6 fL (80.0-100.0) 12/17/17 08:54 MCH 25.2 pg (25.0-35.0) 12/17/17 08:54 MCHC 30.2 g/dL (31.0-37.0) L 12/17/17 08:54 RDW 20.6 % (11.5-15.5) H 12/17/17 08:54 Plt Count 383 k/uL (150-450) 12/17/17 08:54 Neutrophils % (Manual) 66 % 12/13/17 06:30 Band Neutrophils % 1 % 12/13/17 06:30 Lymphocytes % (Manual) 19 % 12/13/17 06:30 Monocytes % (Manual) 7 % 12/13/17 06:30 Eosinophils % (Manual) 7 % 12/13/17 06:30 Neutrophils % 65 % 12/17/17 08:54 Metamyelocytes % 2 % 12/13/17 06:30 Lymphocytes % 22 % 12/17/17 08:54 Monocytes % 4 % 12/17/17 08:54 Neutrophils # (Manual) 3.60 k/uL (1.3-7.7) 12/13/17 06:30 Eosinophils % 7 % 12/17/17 08:54 Basophils % 1 % 12/17/17 08:54 Lymphocytes # (Manual) 1.03 k/uL (1.0-4.8) 12/13/17 06:30 Neutrophils # 3.7 k/uL (1.3-7.7) 12/17/17 08:54 Monocytes # (Manual) 0.38 k/uL (0-1.0) 12/13/17 06:30 Eosinophils # (Manual) 0.38 k/uL (0-0.7) 12/13/17 06:30 Lymphocytes # 1.2 k/uL (1.0-4.8) 12/17/17 08:54 Metamyelocytes # (Man) 0.11 k/uL (0) H 12/13/17 06:30 Monocytes # 0.2 k/uL (0-1.0) 12/17/17 08:54 Eosinophils # 0.4 k/uL (0-0.7) 12/17/17 08:54 Basophils # 0.0 k/uL (0-0.2) 12/17/17 08:54 Nucleated RBCs 0 /100 WBC (0-0) 12/13/17 06:30 Manual Slide Review Performed 12/15/17 05:34 Polychromasia Present 12/13/17 06:30 Target Cells Present 12/15/17 05:34 Ovalocytes Present 12/15/17 05:34 Hypochromasia Marked 12/17/17 08:54 Poikilocytosis Moderate 12/17/17 08:54 Anisocytosis Moderate 12/17/17 08:54 Microcytosis Slight 12/17/17 08:54 PT 11.6 sec (9.0-12.0) 12/13/17 06:30 INR 1.2 (<1.2) H 12/13/17 06:30 APTT 26.2 sec (22.0-30.0) 12/12/17 05:30 VBG pH 7.47 (7.31-7.41) H 12/09/17 21:16 VBG pCO2 26 mmHg (37-51) L 12/09/17 21:16 VBG HCO3 19 mmol/L (24-28) L 12/09/17 21:16 Sodium 137 mmol/L (137-145) 12/17/17 08:54 Potassium 4.6 mmol/L (3.5-5.1) 12/17/17 08:54 Chloride 103 mmol/L (98-107) 12/17/17 08:54 Carbon Dioxide 24 mmol/L (22-30) 12/17/17 08:54 Anion Gap 10 mmol/L 12/17/17 08:54 BUN 20 mg/dL (9-20) 12/17/17 08:54 Creatinine 0.71 mg/dL (0.66-1.25) 12/17/17 08:54 Est GFR (CKD-EPI)AfAm >90 (>60 ml/min/1.73 sqM) 12/17/17 08:54 Est GFR (CKD-EPI)NonAf >90 (>60 ml/min/1.73 sqM) 12/17/17 08:54 Glucose 110 mg/dL (74-99) H 12/17/17 08:54 POC Glucose (mg/dL) 90 mg/dL (75-99) 12/17/17 20:45 POC Glu Coagulation Operator ID Jenna Mcgraw 12/17/17 20:45 Plasma Lactic Acid Timbo 1.6 mmol/L (0.7-2.0) 12/10/17 20:22 Calcium 8.5 mg/dL (8.4-10.2) 12/17/17 08:54 Phosphorus 3.5 mg/dL (2.5-4.5) 12/13/17 06:30 Iron 10 ug/dL (65-175) L 12/11/17 04:54 TIBC 216 ug/dL (228-460) L 12/11/17 04:54 Iron Saturation 4.17 (15.00-50.00) L 12/11/17 04:54 Magnesium 2.1 mg/dL (1.6-2.3) 12/16/17 05:49 Ferritin 143.7 ng/mL (22.0-322.0) 12/11/17 04:54 Total Bilirubin 1.0 mg/dL (0.2-1.3) 12/09/17 21:16 AST 25 U/L (17-59) 12/09/17 21:16 ALT 45 U/L (21-72) 12/09/17 21:16 Alkaline Phosphatase 197 U/L (38-126) H 12/09/17 21:16 Troponin I 0.188 ng/mL (0.000-0.034) H* 12/12/17 05:30 NT-Pro-B Natriuret Pep 59245 pg/mL 12/09/17 21:16 Total Protein 5.2 g/dL (6.3-8.2) L 12/09/17 21:16 Albumin 2.6 g/dL (3.5-5.0) L 12/09/17 21:16 Lipase 181 U/L (23-300) 12/09/17 21:16 Vitamin B12 882.0 pg/mL (200.0-944.0) 12/11/17 04:54 Folate 8.1 ng/mL 12/11/17 04:54 Cortisol 21 ug/dL 12/12/17 05:30 Urine Color Yellow 12/11/17 05:20 Urine Appearance Cloudy (Clear) 12/11/17 05:20 Urine pH 5.5 (5.0-8.0) 12/11/17 05:20 Ur Specific [place] 1.017 (1.001-1.035) 12/11/17 05:20 Urine Protein 1+ (Negative) H 12/11/17 05:20 Urine Glucose (UA) Negative (Negative) 12/11/17 05:20 Urine Ketones Negative (Negative) 12/11/17 05:20 Urine Blood Negative (Negative) 12/11/17 05:20 Urine Nitrite Negative (Negative) 12/11/17 05:20 Urine Bilirubin 1+ (Negative) H 12/11/17 05:20 Urine Urobilinogen 8.0 mg/dL (<2.0) 12/11/17 05:20 Ur Leukocyte Esterase Negative (Negative) 12/11/17 05:20 Urine RBC <1 /hpf (0-5) 12/11/17 05:20 Urine WBC 7 /hpf (0-5) H 12/11/17 05:20 Amorphous Sediment Rare /hpf (None) H 12/11/17 05:20 Hyaline Casts 22 /lpf (0-2) H 12/11/17 05:20 Urine Mucus Occasional /hpf (None) H 12/11/17 05:20 Vancomycin Trough 12.6 ug/mL 12/17/17 08:54 Urine Opiates Screen Not Detected (NotDetected) 12/09/17 22:47 Ur Oxycodone Screen Not Detected (NotDetected) 12/09/17 22:47 Urine Methadone Screen Not Detected (NotDetected) 12/09/17 22:47 Ur Propoxyphene Screen Not Detected (NotDetected) 12/09/17 22:47 Ur Barbiturates Screen Detected (NotDetected) H 12/09/17 22:47 U Tricyclic Antidepress Not Detected (NotDetected) 12/09/17 22:47 Ur Phencyclidine Scrn Not Detected (NotDetected) 12/09/17 22:47 Ur Amphetamines Screen Not Detected (NotDetected) 12/09/17 22:47 U Methamphetamines Scrn Not Detected (NotDetected) 12/09/17 22:47 U Benzodiazepines Scrn Not Detected (NotDetected) 12/09/17 22:47 Urine Cocaine Screen Not Detected (NotDetected) 12/09/17 22:47 U Marijuana (THC) Screen Not Detected (NotDetected) 12/09/17 22:47 Serum Alcohol <10 mg/dL 12/09/17 21:16 Assessment and Plan (1) AICD (automatic cardioverter/defibrillator) present Current Visit: No Status: Acute Code(s): Z95.810 - PRESENCE OF AUTOMATIC ( IMPLANTABLE) CARDIAC DEFIBRILLATOR SNOMED Code(s): 825826669 (2) Cardiomyopathy Current Visit: Yes Status: Acute Code(s): I42.9 - CARDIOMYOPATHY, UNSPECIFIED SNOMED Code(s): 40049186 (3) Bacteremia Narrative/Plan: 41-year-old male that has an extensive past medical history of cardiovascular disease. Has an AICD placed a few years ago was recently hospitalized an outside hospital, there there was concerns to bacteremia likely from the abscess to the left leg. It appears to goal with salvage of the AICD he was placed on high-dose daptomycin. The patient are developed some chest pain increasing shortness of breath some cough generalized malaise and nausea and presented to our facility. With a significant cardiac history concerns to further cardiac disease and has been admitted. X-rays are mildly abnormal potential for pneumonia also exists. Daptomycin is not routinely used for pneumonia, may be effective for those that have endocarditis and pulmonary infiltrates, but for other pneumonias is not highly effective and consequently we'll alter to vancomycin at this time. Given the level illness will also adding gram-negative coverage with this many ALLERGIES Azactam will be added. Cultures are processing he will be followed. Outside data he has been requested patient to sign release of information to evaluate outside cultures and to evaluate the infectious diseases consultations to assist with the overall plan especially discharge planning. The patient is acutely ill and there is concerns for his deterioration. 12/11/2017 the patient did worsen overnight became more short of breath and even developed some nausea and has had some emesis today. I have a high-grade fever. But does feel quite poorly. With his nausea some Zofran is requested and does give him some relief. Continue antibiotic therapy this time with vancomycin and Azactam with concerns for potential pneumonia for which the daptomycin would not treat. Await cultures to ensure that we do not need to continue with gram-negative therapy. The patient does have a significant ischemic cardiac myopathy and AICD is in place. We are awaiting the records from [facility] to determine the pathogen, and course of therapy that was directed at that stay. Cultures for further help direct his therapy. 12/14/2017 outside data is yet to be obtained help clarify his course of antibiotic therapy. Cardiology and pulmonary critical care has been following and he's had an acute exacerbation of systolic congestive heart failure and has had improvement of symptoms with his diuresis, has lost 5.2 kg. His symptoms of chest pain have resolved his nausea and emesis have resolved and is feeling considerably better. With his diuresis and alteration of his antibiotic therapy there is no marked improvement. We'll likely need to contact [facility] for further information before his discharge to ensure the change of antibiotic therapy vancomycin is even an option for his prior event which appears to be bacteremia. Unclear if he had a vancomycin resistant pathogen or daptomycin was chosen because of less toxicity. 12/15/2017 patient is feeling better. Remains out of the intensive care unit shortness of breath is improved but continues to have anemia. He has been evaluated by gastroenterology and capsule endoscopy is planned given that upper and lower endoscopy was not diagnostic. As noted patient was care for an outside hospital and was on antibiotic therapy but still developed the evidence of pneumonia and a sepsis-like process. Is now doing well with the change of antibiotic therapy to vancomycin and Azactam. We do have negative cultures. It is noted he had a bacteremic event at the outside hospital and is receiving daptomycin therapy for that. This is been transitioned to vancomycin therapy and likely will stay on that at the time of his discharge to home. It appears that mid December would be determined and date of antibiotic therapy. We have asked for the culture results and consult notes from the outside hospital to further direct therapy here. 12/17/2017 patient has improved respiratory status improved and responding well to current antibiotic therapy. will arrange for outpatient IV at home, however patient is inquiring to possibility of rehab. Script for antibiotic available as 1500mg ivpb Q12 hours. Current Visit: Yes Status: Acute Code(s): R78.81 - BACTEREMIA SNOMED Code( s): 4942237
[2017-12-18] MEDS: AZTREONAM 2 GM in SODIUM CHLORIDE 0.9% 100 ML IVPB SCH ×2 (00:22→09:50)
[2017-12-18 06:01] LABS: Glucose,Whole Blood 109 mg/dL (75-99)
[2017-12-18] MEDS: INSULIN ASPART 100 UNIT/ML 1 ML 10 ML VIAL SQ SCH ×4 (06:03→12:20)
[2017-12-18 06:36] LABS: Anion Gap 7 mmol/L; Blood Urea Nitrogen 19 mg/dL (9-20); Calcium 8.3 mg/dL (8.4-10.2); Carbon Dioxide 25 mmol/L (22-30); Chloride 106 mmol/L (98-107); Glucose 98 mg/dL (74-99); Potassium 4.1 mmol/L (3.5-5.1); Sodium 138 mmol/L (137-145)
--- NOTE | 2017-12-18 07:53 | P.PN ---
Subjective Patient is seen in follow-up for acute kidney injury and volume overload. Acute kidney injury has resolved. He is currently maintained on Lasix 40 mg IV twice daily. He is nonoliguric. Edema is improving. Oral intake is good. No vomiting or diarrhea. Denies chest pain or shortness of breath. Patient has systolic CHF with ejection fraction of 20-25%. No active bleeding. Vital signs are stable. General: The patient appeared well nourished and normally developed. HEENT: Head exam is unremarkable. Neck is without jugular venous distension. LUNGS: Lungs are clear to auscultation and percussion. Breath sounds decreased. HEART: Rate and Rhythm are regular. First and second heart sounds normal. No murmurs, rubs or gallops. ABDOMEN: Abdominal exam reveals normal bowel sounds. Non-tender and non- distended. No evidence of peritonitis. EXTREMITITES: 1+ edema. Objective - Vital Signs Vital signs: Vital Signs Temp 98.2 F 12/18/17 00:00 Pulse 106 H 12/18/17 04:00 Resp 18 12/18/17 04:00 BP 108/54 12/18/17 04:00 Pulse Ox 100 12/18/17 04:00 Intake & Output 12/17/17 12/18/17 12/18/17 18:59 06:59 18:59 Output Total 0 Balance 0 Weight 109.7 kg 109.2 kg Output: Urine 0 Other: Voiding Method Toilet Urinal # Voids 0 - Labs CBC & Chem 7: 12/17/17 08:54 12/18/17 05:39 Labs: Abnormal Lab Results - Last 24 Hours (Table) 12/17/17 12/17/17 12/17/17 Range/Units 08:54 08:54 11:42 RBC 4.01 L (4.30-5.90) m/uL Hgb 10.1 L (13.0-17.5) gm/dL Hct 33.5 L (39.0-53.0) % MCHC 30.2 L (31.0-37.0) g/dL RDW 20.6 H (11.5-15.5) % Glucose 110 H (74-99) mg/dL POC Glucose (mg/dL) 102 H (75-99) mg/dL Calcium (8.4-10.2) mg/dL 12/17/17 12/18/17 12/18/17 Range/Units 16:53 05:39 06:00 RBC (4.30-5.90) m/uL Hgb (13.0-17.5) gm/dL Hct (39.0-53.0) % MCHC (31.0-37.0) g/dL RDW (11.5-15.5) % Glucose (74-99) mg/dL POC Glucose (mg/dL) 101 H 109 H (75-99) mg/dL Calcium 8.3 L (8.4-10.2) mg/dL Assessment and Plan Plan: Assessment: 1. Nonoliguric acute kidney injury secondary to ATN secondary to cardiorenal syndrome and hypotension. Resolved. 2. Volume overload. Improving. 3. Systolic CHF with ejection fraction of 20-25%. Status post AICD placement. 4. Hypervolemic hyponatremia. Improved. 5. Insulin-dependent diabetes mellitus. 6. Anemia. Severe iron deficiency noted - status post 3 doses of IV iron. Status post capsule endoscopy this admission. 7. Hypotension related to underlying cardiac status. Maintained on midodrine. Cortisol level normal. 8. Left leg abscess maintained on IV antibiotics. Infectious disease following. Plan: Maintain IV Lasix 40 mg IV twice daily - can be transitioned over to 40 mg orally twice daily upon discharge. 1500 mL fluid restriction. Avoid nephrotoxic agents and hypotensive episodes. Stable to be discharged to rehab from nephrology standpoint. He will need to get a basic metabolic panel and a magnesium level checked within 2-3 days of discharge. He will need to follow-up as an outpatient in the next 1-2 weeks.
[2017-12-18] MEDS ORDERED: SERTRALINE 100 MG TAB PO SCH (09:00)
[2017-12-18] MEDS: FERROUS SULFATE 325 MG TAB PO SCH (09:52)
[2017-12-18] MEDS: MIDODRINE 5 MG TAB PO SCH ×2 (09:52→12:20)
[2017-12-18] MEDS: METOPROLOL SUCCINATE (ER) 25 MG TAB.ER.24H PO SCH (09:53)
[2017-12-18] MEDS: ASPIRIN 81 MG PO SCH (09:53)
[2017-12-18] MEDS: HEPARIN SODIUM,PORCINE 5,000 UNIT/ML 1 ML VIAL SQ SCH (09:53)
[2017-12-18] MEDS: FUROSEMIDE 10 MG/ML 4 ML VIAL IV SCH (09:53)
[2017-12-18] MEDS: GABAPENTIN 400 MG CAP PO SCH ×2 (09:53→15:23)
[2017-12-18] MEDS: PRIMIDONE 250 MG TAB PO SCH (09:54)
[2017-12-18] MEDS: VANCOMYCIN 1,500 MG in SODIUM CHLORIDE 0.9% 250 ML IVPB SCH (11:06)
[2017-12-18 12:06] VITALS: TEMP 96.5
[2017-12-18 12:22] LABS: Glucose,Whole Blood 163 mg/dL (75-99)
[2017-12-18 13:22] VITALS: RESP 16
--- NOTE | 2017-12-18 14:19 | CDI ---
Last Revision, April 2017 Date: 12/18/2017 12:00:00 AM From: Carri Marie Admit Date: 12/09/2017 10:46:00 PM Patient Name: Ti Dunham Visit Number: [id number] Discharge Date: ATTENTION: The Clinical Documentation Specialists (CDI) and [facility] Coding Staff appreciate your assistance in clarifying documentation. Please respond to the clarification below the line at the bottom and electronically sign. The CDI & [facility] Coding staff will review the response and follow-up if needed. Please note: Queries are made part of the Legal Health Record. If you have any questions, please contact the author of this message via ITS. Dr. Silva E Sheet Multiple PNs state TIA/CVA, with right sided weakness and numbness, resolved, PN 12/12 notes pt was suspected of having stroke yesterday overnight when he was noticed to have facial drop and lid drop, CT of head was negative for acute hemorrhage or event. PN states he thought CTA was unremarkable Patient history/risk factors CVA/TIA,HTN, sepsis,Severe AICD, recent [place], Acute on chronic systolic cHF, hypotension requiring pressors and BART[place] 2nd to ATN/ bacteremia Clinical Indicators: facial drop and rt sided weakness resolved Lab findings:elevated troponins by hx and to 0.2 Radiology findings:ct brain wo contrast no acute intracrainial abnormality : CTA no significant stenosis , normal CTA of [place], Vital Signs:BP to 70s while sleeping Other Clinical Indicators: Treatment:ICU care, neuro checks Consults:cardiology,ICU, Renal, GI In your professional opinion, can you please clarify TIA/CVA resolved TIA treated CVA treated TIA and CVA ruled out Other, please specify Unable to determine Please continue to document in your progress notes and discharge summary in order to capture severity of illness and risk of mortality. Include clinical findings that support your diagnosis. _unable to determine ___ MTDD
[2017-12-18 15:27] VITALS: BP 109/72; PULSE 95
--- NOTE | 2017-12-21 10:48 | P.DS ---
Providers Date of admission: 12/09/17 22:46 Attending physician: Ricardo Samson MD Consults: 12/10/17 10:56 Consult Physician Routine Consulting Provider: Gordon Platt Consult Reason/Comments: Pt has been on terminologist IV Cubicin (Dr Angel Enriquez [place])-Cystitis Do you want consulting provider notified?: Yes 12/11/17 03:50 Consult Physician Routine Consulting Provider: Marga Ibarra Consult Reason/Comments: ICU Management Do you want consulting provider notified?: Already Contacted 12/11/17 10:48 Consult Physician Routine Consulting Provider: Gerson Dewey Consult Reason/Comments: CHF, elevation trop. Do you want consulting provider notified?: Already Contacted 12/11/17 12:08 Consult Physician Routine Consulting Provider: Charla Orlando Consult Reason/Comments: fluid management/electrolyte imbalance Do you want consulting provider notified?: Yes Primary care physician: [facility] Course: This is a pleasant 41 years old male with past medical history of asthma, coronary artery disease with multiple vessel disease, heart failure, CVA/TIA, diabetes mellitus, GERD, hyperlipidemia, hypertension, osteoarthritis, pneumonia , sleep apnea on CPAP/BiPAP, chronic back pain, migraine, he had no hernia, rotator cuff tear, bronchitis, MRSA infection, he status post AICD, cardiac cath and stent, obesity. He presents because of dyspnea of 2 days' duration, associated with cough and scant phlegm as per patient were nonspecific in color. Associated with some chest tightness however the patient feels that from his shortness of breath. He also complained from diarrhea about 3-4 times yesterday, once today, with no associated abdominal pain no nausea vomiting were patient has epigastric tenderness Patient states that he is taking daptomycin for 2 weeks for now because he was at [facility] at that time heart attack and he needed cardiac pump which got infected and that's why he needed the daptomycin, he is not sure for how long he should be on daptomycin. He has PICC line on his right arm The ED was no noticed to be tachycardic with heart rate 107-112, rest of the vital signs are within normal limits. His WBC 5.9, hemoglobin 9.5, INR 1.4, sodium 132, potassium 4.4, creatinine 0.8, troponin is high at 0.2 (his previous troponins are always elevated between 0.05 and 1.6) UA was unremarkable for infection proBNP is 11,700. EKG shows paced rhythm at 105 with QTC 433, chest x-ray shows new infiltrate could be related to acute pneumonia on both sides when the heart slightly enlarged. CT of the abdomen and pelvis without contrast showing urinary bladder wall thickening consistent with cystitis and mild ascites, with pleural effusions and cardiomegaly pt was transferred to the ICU for low BP , Looking back at his chart, patient is known to have history of systolic congestive heart failure with ejection fraction of 20%.s/p AICD. And his baseline creatinine is usually normal. his hypotesion looks multifactorial , from his heart disease and elements of hypovolemia but it was felt sepsis played a major role in it , pt bp improved with treatment and during his stay he was evaluated by many data quality consultant, like infectious disease. He was also seen by nephrology for acute kidney injury and hyponatremia. pulmonary service/ICU team, and GI team . # During infectious disesase evaluation they noticed he was Recently hospitalized at outside facility and there he had evidence of difficulties with abscess to his left leg and from the data that we have so far the patient was bacteremic and he was treated with daptomycin on admission to the our facility, with overall goal for salvage of his AICD. The patient presented to this facility with chest pain and shortness of breath and cough, is feeling somewhat more poorly and infectious disease consult was requested regarding his antibiotic therapy. ID consult is appreciated his antibiotics were changed from daptomycin to vancomycin and aztreonam.underlying pneumonia is not entirely ruled out, but felt to be less likely patient is on empiric antibiotics including vancomycin and aztreonam. pt showed significant improvement . upon discharge his antibiotics were adjusted by ID team. # on the day of discharge , his Acute kidney injury has resolved. He is currently maintained on Lasix 40 mg IV twice daily changed to PO upon discharge. He is nonoliguric. Edema is improving. Oral intake is good. No vomiting or diarrhea. Denies chest pain or shortness of breath. No active bleeding. # pt has been evaluated by cardiology team for acute systolic congestive heart failure and hypoxic respiratory failure secondary to CHF, he was treated with diuretics, and after medication adjustment his condition stabilized. # GI team evaluated pt as well for persistent normocytic chromic anemia without overt bleeding. Recent EGD colonoscopy evaluation around 10 days ago for evaluation of anemia and positive Hemoccult indicated Diaz's esophagus, colonoscopy within normal limits.small bowel capsule endoscopy: no evidence of active bleeding. pt was cleared by nephrology team , infectious disease team, pulmonary team, cardiology team for discharge with the recommendation for outpt follow up , appointment were made for GI , ID , pulmonary , cardiology followup and patient informed , he agrees with all appointments and timing problem list and management plan was discussed with the pt and he verbalized understanding and acceptance on the day of discharge pt is found stable and can be discharged to rehab but in guarded prognosis however he needs follow up as outpt discharge exam GENERAL: The patient is alert and oriented x3, not in any acute distress. Well developed, well nourished. his coloration looks significantly better than when he came in , his more calm and not in distress compared when he came in. obese HEENT: Pupils are round and equally reacting to light. EOMI. No scleral icterus. No conjunctival pallor. Normocephalic, atraumatic. No pharyngeal erythema. No thyromegaly. CARDIOVASCULAR: S1 and S2 present. No murmurs, rubs, or gallops. PULMONARY: Chest is clear to auscultation, no wheezing or crackles. ABDOMEN: Soft, nontender, nondistended, normoactive bowel sounds. No palpable organomegaly. MUSCULOSKELETAL: No joint swelling or deformity. EXTREMITIES: No cyanosis, clubbing, , b/l 1+ pedal edema. NEUROLOGICAL: Gross neurological examination did not reveal any focal deficits. SKIN: No rashes. time spent more than 35 min Patient Condition at Discharge: Good Plan - Discharge Summary Discharge Rx Participant: No New Discharge Prescriptions: New Vancomycin 1,500 mg IVPB Q12HR@1000,2200 #56 vial Insulin Aspart [NovoLOG (formulary)] 5 unit SQ AC-TID vial Insulin Detemir [Levemir] 20 unit SQ HS syr Midodrine [ProAmatine] 5 mg PO AC-TID tab Sennosides [Senokot] 8.6 mg PO BID PRN tab PRN Reason: Constipation Continue Aspirin 81 mg PO DAILY chew Gabapentin [Neurontin] 400 mg PO TID cap Nitroglycerin Sl Tabs [Nitrostat] 0.4 mg SUBLINGUAL Q5M PRN tab PRN Reason: Chest Pain Ranitidine HCl 300 mg PO DAILY Rosuvastatin Calcium [Crestor] 40 mg PO HS ARIPiprazole [ARIPiprazole Odt] 15 mg PO HS Metoprolol Succinate [Toprol XL] 25 mg PO DAILY Ferrous Sulfate [Iron (65 MG Elemental)] 325 mg PO BID Primidone [Mysoline] 500 mg PO BID Clopidogrel [Plavix] 75 mg PO HS Lisinopril [Zestril] 5 mg PO DAILY Furosemide [Lasix] 40 mg PO DAILY Sertraline [Zoloft] 200 mg PO DAILY Discontinued Insulin Glargine [Lantus] 27 unit SQ HS Insulin Aspart [NovoLOG (formulary)] 9 unit SQ TID DAPTOmycin [Cubicin] 850 mg IV DAILY No Action Insulin Aspart [NovoLOG (formulary)] See Protocol SQ ACHS Discharge Medication List Aspirin 81 mg PO DAILY chew 07/27/17 [Rx] Gabapentin [Neurontin] 400 mg PO TID cap 07/27/17 [Rx] Nitroglycerin Sl Tabs [Nitrostat] 0.4 mg SUBLINGUAL Q5M PRN tab 07/27/17 [Rx] ARIPiprazole [ARIPiprazole Odt] 15 mg PO HS 10/27/17 [History] Ranitidine HCl 300 mg PO DAILY 10/27/17 [History] Rosuvastatin Calcium [Crestor] 40 mg PO HS 10/27/17 [History] Clopidogrel [Plavix] 75 mg PO HS 12/03/17 [History] Ferrous Sulfate [Iron (65 MG Elemental)] 325 mg PO BID 12/03/17 [History] Furosemide [Lasix] 40 mg PO DAILY 12/03/17 [History] Lisinopril [Zestril] 5 mg PO DAILY 12/03/17 [History] Metoprolol Succinate [Toprol XL] 25 mg PO DAILY 12/03/17 [History] Primidone [Mysoline] 500 mg PO BID 12/03/17 [History] Sertraline [Zoloft] 200 mg PO DAILY 12/05/17 [History] Insulin Aspart [NovoLOG (formulary)] 5 unit SQ AC-TID vial 12/18/17 [Rx] Insulin Detemir [Levemir] 20 unit SQ HS syr 12/18/17 [Rx] Midodrine [ProAmatine] 5 mg PO AC-TID tab 12/18/17 [Rx] Sennosides [Senokot] 8.6 mg PO BID PRN tab 12/18/17 [Rx] Vancomycin 1,500 mg IVPB Q12HR@1000,2200 #56 vial 12/18/17 [Rx] Insulin Aspart [NovoLOG (formulary)] See Protocol SQ ACHS 12/21/17 [History] Follow up Appointment(s)/Referral(s): Marga Ibarra MD [STAFF PHYSICIAN] - 12/31/17 9:30 am Yovani Hein MD [STAFF PHYSICIAN] - 01/19/18 4:45 pm [facility] [REFERRING] - 12/23/17 2:15 pm (Thursday) Gordon Platt MD [STAFF PHYSICIAN] - 2 Weeks (Spoke to medical records receptionist. Office to call with appointment time on Thursday) [facility], [REFERRING] - Jovan Dangelo DO [STAFF PHYSICIAN] - 2 Weeks [facility], [NON-STAFF] - Ambulatory/Diagnostic Orders: Basic Metabolic Panel [LAB.AMB] Location: None Selected Complete Blood Count w/diff [LAB.AMB] Location: None Selected C Reactive Protein [LAB.AMB] Location: None Selected Erythrocyte Sedimentation Rate [LAB.AMB] Location: None Selected Vancomycin,Trough [LAB.AMB] Location: None Selected Patient Instructions/Handouts: Heart Failure (DC), Low Sodium Diet (DC), Bacteremia (DC) Activity/Diet/Wound Care/Special Instructions: Per Dr Dangelo, pt to go home on 40 lasix BID and have BMP/mag completed on thursday you need to check your BMP and magnesium in 2-3 days, and contact her bed machine operator Dr. West for follow-up (please see the discharge instructions for Dr. West contact information) Cardiac diet, salt restriction to 2 mg per day Fluid restriction 1500 ml per day Activities is Limited until you see your doctor We recommend to follow-up with your doctor at the ECF in 1-2 days please discontinue your picc line after you finish your antibiotic course in 4 weeks or as per infectious disease team Discharge Disposition: TRANSFER TO SNF/ECF
== END 2017-12-18 17:24 | DRG 871 ==
LOC: EC 20:05 → 6SEL 22:46 → 6ICU 12-11 05:07 → 6SEL 12-14 20:11
PROVIDERS: ADMIT Internal Medicine; ATTEND Internal Medicine
DX: A41.9 Sepsis, unspecified organism (principal); J18.9 Pneumonia, unspecified organism; J96.01 Acute respiratory failure with hypoxia; N17.0 Acute kidney failure with tubular necrosis; I50.23 Acute on chronic systolic (congestive) heart failure; E87.1 Hypo-osmolality and hyponatremia; E87.2 Acidosis; L02.416 Cutaneous abscess of left lower limb; R18.8 Other ascites; I11.0 Hypertensive heart disease with heart failure; I95.9 Hypotension, unspecified; D50.9 Iron deficiency anemia, unspecified; E11.40 Type 2 diabetes mellitus with diabetic neuropathy, unspecified; E11.43 Type 2 diabetes mellitus with diabetic autonomic (poly)neuropathy; K31.84 Gastroparesis; E66.9 Obesity, unspecified; E78.5 Hyperlipidemia, unspecified; E86.1 Hypovolemia; F32.9 Major depressive disorder, single episode, unspecified; F43.10 Post-traumatic stress disorder, unspecified; G43.909 Migraine, unspecified, not intractable, without status migrainosus; G47.33 Obstructive sleep apnea (adult) (pediatric); G89.29 Other chronic pain; I25.10 Atherosclerotic heart disease of native coronary artery without angina pectoris; I25.2 Old myocardial infarction; I25.5 Ischemic cardiomyopathy; J45.909 Unspecified asthma, uncomplicated; K21.9 Gastro-esophageal reflux disease without esophagitis; N30.90 Cystitis, unspecified without hematuria; M19.90 Unspecified osteoarthritis, unspecified site; M54.9 Dorsalgia, unspecified; R19.7 Diarrhea, unspecified; K44.9 Diaphragmatic hernia without obstruction or gangrene; F41.9 Anxiety disorder, unspecified; R77.9 Abnormality of plasma protein, unspecified; T50.2X5A Adverse effect of carbonic-anhydrase inhibitors, benzothiadiazides and other diuretics, initial encounter; K29.50 Unspecified chronic gastritis without bleeding; L40.9 Psoriasis, unspecified; Z79.02 Long term (current) use of antithrombotics/antiplatelets; Z79.4 Long term (current) use of insulin; Z79.82 Long term (current) use of aspirin; Z79.899 Other long term (current) drug therapy; Z86.73 Personal history of transient ischemic attack (TIA), and cerebral infarction without residual deficits; Z95.810 Presence of automatic (implantable) cardiac defibrillator; Z95.5 Presence of coronary angioplasty implant and graft; Z86.14 Personal history of Methicillin resistant Staphylococcus aureus infection; Z68.38 Body mass index [BMI] 38.0-38.9, adult; Z90.49 Acquired absence of other specified parts of digestive tract; Z88.5 Allergy status to narcotic agent; Z88.0 Allergy status to penicillin; Z88.8 Allergy status to other drugs, medicaments and biological substances; Z87.440 Personal history of urinary (tract) infections; Z87.01 Personal history of pneumonia (recurrent); Z91.5 Personal history of self-harm; Z88.6 Allergy status to analgesic agent; Z88.1 Allergy status to other antibiotic agents; Z91.041 Radiographic dye allergy status; Z83.3 Family history of diabetes mellitus; Z82.49 Family history of ischemic heart disease and other diseases of the circulatory system; Z82.0 Family history of epilepsy and other diseases of the nervous system; Z80.1 Family history of malignant neoplasm of trachea, bronchus and lung; Y92.009 Unspecified place in unspecified non-institutional (private) residence as the place of occurrence of the external cause
CPT/HCPCS: 36415; 70450; 70496; 70498; 71045; 71046; 72082; 74176; 80048; 80053; 80202; 80306; 80320; 81001; 82533; 82607; 82728; 82746; 82803; 83540; 83550; 83605; 83690; 83735; 83880; 84100; 84484; 85025; 85610; 85730; 87040; 87086; 91110; 93005; 96365; 96375; 99285

== ENCOUNTER 2017-12-20 23:11 | Observation (INO) | payer MEDICARE, OTHER ==
[2017-12-20] MEDS ORDERED: NITROGLYCERIN SL TABS 0.4 MG TAB SUBLINGUAL STA ×3 (23:36)
[2017-12-20] MEDS ORDERED: ASPIRIN 81 MG PO STA (23:36)
--- NOTE | 2017-12-20 23:39 | ED ---
General Adult HPI - General Chief complaint: Chest Pain Stated complaint: cp Time Seen by Provider: 12/20/17 23:19 Source: patient, EMS, RN notes reviewed Mode of arrival: EMS Limitations: no limitations - History of Present Illness Initial comments: Patient is a pleasant 41-year-old male presenting to the emergency department chest discomfort. Discomfort feels like pressure. Patient does have some associated dyspnea. Patient does have some leg swelling which is somewhat chronic for him. Patient also has some epigastric discomfort. Patient was discharged from the hospital several days ago similar problems. Patient also had recent CHF exacerbation. No fevers. - Related Data Home Medications Medication Instructions Recorded Confirmed ARIPiprazole [ARIPiprazole Odt] 15 mg PO HS 10/27/17 12/21/17 Ranitidine HCl 300 mg PO DAILY 10/27/17 12/21/17 Rosuvastatin Calcium [Crestor] 40 mg PO HS 10/27/17 12/21/17 Clopidogrel [Plavix] 75 mg PO HS 12/03/17 12/21/17 Ferrous Sulfate [Iron (65 MG 325 mg PO BID 12/03/17 12/21/17 Elemental)] Furosemide [Lasix] 40 mg PO DAILY 12/03/17 12/21/17 Lisinopril [Zestril] 5 mg PO DAILY 12/03/17 12/21/17 Metoprolol Succinate [Toprol XL] 25 mg PO DAILY 12/03/17 12/21/17 Primidone [Mysoline] 500 mg PO BID 12/03/17 12/21/17 Sertraline [Zoloft] 200 mg PO DAILY 12/05/17 12/21/17 Previous Rx's Medication Instructions Recorded Aspirin 81 mg PO DAILY chew 07/27/17 Gabapentin [Neurontin] 400 mg PO TID cap 07/27/17 Nitroglycerin Sl Tabs [Nitrostat] 0.4 mg SUBLINGUAL Q5M PRN tab 07/27/17 Insulin Aspart [NovoLOG 0 unit SQ ACHS vial 12/18/17 (formulary)] Insulin Aspart [NovoLOG 5 unit SQ AC-TID vial 12/18/17 (formulary)] Insulin Detemir [Levemir] 20 unit SQ HS syr 12/18/17 Midodrine [ProAmatine] 5 mg PO AC-TID tab 12/18/17 Sennosides [Senokot] 8.6 mg PO BID PRN tab 12/18/17 Vancomycin 1,500 mg IVPB Q12HR@1000,2200 #56 12/18/17 vial Allergies Allergy/AdvReac Type Severity Reaction Status Date / Time erythromycin base Allergy Severe Rash/Hives Verified 12/20/17 23:18 [Erythromycin Base] cephalexin monohydrate Allergy Unknown Rash/Hives Verified 12/20/17 23:18 [From Keflex] codeine Allergy Unknown Unknown Verified 12/20/17 23:18 meclizine Allergy Unknown Unknown Verified 12/20/17 23:18 Penicillins Allergy Unknown Rash/Hives Verified 12/20/17 23:18 shellfish derived Allergy Unknown Anaphylaxis Verified 12/20/17 23:18 Fish Containing Products Allergy Anaphylaxis Verified 12/20/17 23:18 [Fish] Iodinated Contrast- Oral and Allergy Anaphylaxis Verified 12/20/17 23:18 IV Dye naproxen AdvReac Unknown Compromises Verified 12/20/17 23:18 Kidney Function atorvastatin calcium AdvReac Myalgia Verified 12/20/17 23:18 [From Lipitor] hydrocodone [From [place]] AdvReac Rapid Verified 12/20/17 23:18 Heart Rate Review of Systems ROS Statement: Those systems with pertinent positive or pertinent negative responses have been documented in the HPI. ROS Other: All systems not noted in ROS Statement are negative. Constitutional: Denies: fever Eyes: Denies: eye pain ENT: Denies: ear pain Respiratory: Reports: dyspnea Cardiovascular: Reports: chest pain Endocrine: Reports: fatigue Gastrointestinal: Reports: abdominal pain Genitourinary: Denies: dysuria Musculoskeletal: Denies: back pain Skin: Denies: rash Neurological: Denies: weakness Past Medical History Past Medical History: Asthma, Coronary Artery Disease (CAD), Chest Pain / Angina , Heart Failure, CVA/TIA, Diabetes Mellitus, GERD/Reflux, Hyperlipidemia, Hypertension, Myocardial Infarction (SD), Osteoarthritis (OA), Pneumonia, Skin Disorder, Sleep Apnea/CPAP/BIPAP Additional Past Medical History / Comment(s): multiple vessel CAD, ischemic cardiomyopathy, diabetic neuropathy bilateral hands and feet, hypertensive cardiovascular disease, SHELIA with no device, chronic gastritis, degenerative disc disease, chronic back pain, depression with hx of suicide attempts, gastroparesis, psoriasis, UTI, migraines, TIA, PUD, hiatal hernia, L rotator cuff tear, bronchitis, pseudoaneurysm L groin post procedure. 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 Date of Last Stent Placement:: 05/25/2017 Type of Cardiac Device: Biventricular Pacemaker, AICD Device Placement Date:: 09/19/15 Past Psychological History: Anxiety, Depression, PTSD Smoking Status: Never smoker Past Alcohol Use History: None Reported Past Drug Use History: None Reported - Past Family History Mother Family Medical History: Coronary Artery Disease (CAD), Myocardial Infarction (SD ) Additional Family Medical History / Comment(s): 7 SD and faulty heart valve. Pt does not know the age when mother had her SD's. Father History Unknown: Yes Additional Family Medical History / Comment(s): Does not know who father is. Brother(s) Family Medical History: Cancer, Congestive Heart Failure (CHF), Myocardial Infarction (SD) Additional Family Medical History / Comment(s): Parkinsons. Pt does not know at what age his brother had an SD. Patient's other brother has lung CA Patient has Family Medical History: No Reported History Additional Family Medical History / Comment(s): There is a strong family history for heart disease, hypertension, and diabetes. General Exam Limitations: no limitations General appearance: alert, in no apparent distress Head exam: Present: atraumatic Eye exam: Present: normal appearance, PERRL ENT exam: Present: normal oropharynx Neck exam: Present: normal inspection Respiratory exam: Present: normal lung sounds bilaterally Cardiovascular Exam: Present: regular rate, normal rhythm Expanded Peripheral pulses: 2+: Radial (R), Radial (L), Dorsalis Pedis (R), Dorsalis Pedis (L) GI/Abdominal exam: Present: soft, tenderness (Mild epigastric tenderness), normal bowel sounds. Absent: distended, guarding, rebound, rigid, pulsatile mass Extremities exam: Present: pedal edema. Absent: calf tenderness Neurological exam: Present: alert Psychiatric exam: Present: normal affect, normal mood Skin exam: Present: normal color Course Vital Signs 12/20/17 12/21/17 23:13 00:09 Temperature 97.7 F Pulse Rate 97 92 Respiratory 20 20 Rate Blood Pressure 106/66 116/66 O2 Sat by Pulse 97 99 Oximetry EKG Findings - EKG Comments: EKG Findings:: Paced rhythm with a rate of 92. VA 182. QRS 74. QT is a 46. QTc 427. [place] indeterminate. Diffuse Q waves. No acute ST change. Medical Decision Making - Medical Decision Making Patient reevaluated and updated. Case discussed with Dr. Manrique, who will admit for Dr. Courtney Clay. - Lab Data Result diagrams: 12/20/17 23:30 12/20/17 23:30 Lab Results 12/20/17 12/20/17 12/20/17 Range/Units 23:30 23:30 23:30 WBC 7.4 (3.8-10.6) k/uL RBC 3.78 L (4.30-5.90) m/uL Hgb 9.9 L (13.0-17.5) gm/dL Hct 32.0 L (39.0-53.0) % MCV 84.7 (80.0-100.0) fL MCH 26.3 (25.0-35.0) pg MCHC 31.1 (31.0-37.0) g/dL RDW 21.5 H (11.5-15.5) % Plt Count 320 (150-450) k/uL Neutrophils % 60 % Lymphocytes % 26 % Monocytes % 5 % Eosinophils % 7 % Basophils % 1 % Neutrophils # 4.4 (1.3-7.7) k/uL Lymphocytes # 1.9 (1.0-4.8) k/uL Monocytes # 0.4 (0-1.0) k/uL Eosinophils # 0.5 (0-0.7) k/uL Basophils # 0.0 (0-0.2) k/uL Hypochromasia Marked Poikilocytosis Slight Anisocytosis Moderate Microcytosis Slight PT (9.0-12.0) sec INR (<1.2) APTT (22.0-30.0) sec Sodium 136 L (137-145) mmol/L Potassium 4.7 (3.5-5.1) mmol/L Chloride 106 (98-107) mmol/L Carbon Dioxide 23 (22-30) mmol/L Anion Gap 7 mmol/L BUN 22 H (9-20) mg/dL Creatinine 0.80 (0.66-1.25) mg/dL Est GFR (CKD-EPI)AfAm >90 (>60 ml/min/1.73 sqM) Est GFR (CKD-EPI)NonAf >90 (>60 ml/min/1.73 sqM) Glucose 90 (74-99) mg/dL Calcium 8.4 (8.4-10.2) mg/dL Magnesium 2.1 (1.6-2.3) mg/dL Total Bilirubin 0.2 (0.2-1.3) mg/dL AST 47 (17-59) U/L ALT 46 (21-72) U/L Alkaline Phosphatase 233 H (38-126) U/L Total Creatine Kinase 38 L (55-170) U/L CK-MB (CK-2) 1.5 (0.0-2.4) ng/mL CK-MB (CK-2) Rel Index 3.9 Troponin I 0.094 H* (0.000-0.034) ng/mL NT-Pro-B Natriuret Pep pg/mL Total Protein 5.1 L (6.3-8.2) g/dL Albumin 2.7 L (3.5-5.0) g/dL Amylase 49 (30-110) U/L Lipase 242 (23-300) U/L 12/20/17 12/20/17 Range/Units 23:30 23:30 WBC (3.8-10.6) k/uL RBC (4.30-5.90) m/uL Hgb (13.0-17.5) gm/dL Hct (39.0-53.0) % MCV (80.0-100.0) fL MCH (25.0-35.0) pg MCHC (31.0-37.0) g/dL RDW (11.5-15.5) % Plt Count (150-450) k/uL Neutrophils % % Lymphocytes % % Monocytes % % Eosinophils % % Basophils % % Neutrophils # (1.3-7.7) k/uL Lymphocytes # (1.0-4.8) k/uL Monocytes # (0-1.0) k/uL Eosinophils # (0-0.7) k/uL Basophils # (0-0.2) k/uL Hypochromasia Poikilocytosis Anisocytosis Microcytosis PT 12.5 H (9.0-12.0) sec INR 1.3 H (<1.2) APTT 23.4 (22.0-30.0) sec Sodium (137-145) mmol/L Potassium (3.5-5.1) mmol/L Chloride (98-107) mmol/L Carbon Dioxide (22-30) mmol/L Anion Gap mmol/L BUN (9-20) mg/dL Creatinine (0.66-1.25) mg/dL Est GFR (CKD-EPI)AfAm (>60 ml/min/1.73 sqM) Est GFR (CKD-EPI)NonAf (>60 ml/min/1.73 sqM) Glucose (74-99) mg/dL Calcium (8.4-10.2) mg/dL Magnesium (1.6-2.3) mg/dL Total Bilirubin (0.2-1.3) mg/dL AST (17-59) U/L ALT (21-72) U/L Alkaline Phosphatase (38-126) U/L Total Creatine Kinase (55-170) U/L CK-MB (CK-2) (0.0-2.4) ng/mL CK-MB (CK-2) Rel Index Troponin I (0.000-0.034) ng/mL NT-Pro-B Natriuret Pep 6580 pg/mL Total Protein (6.3-8.2) g/dL Albumin (3.5-5.0) g/dL Amylase (30-110) U/L Lipase (23-300) U/L - Radiology Data Radiology results: image reviewed (Abdominal x-ray shows nonacute abdomen. Two- view chest x-ray shows some pulmonary congestion improved from prior. Some chronic left upper lobe infiltrate.) Disposition Clinical Impression: Chest pain Disposition: ADMITTED IP TO THIS HOSP Referrals: Junie New MD [Primary Care Provider] - 1-2 days Decision Time: 00:58
[2017-12-21 00:11] LABS: INR 1.3 (<1.2); Partial Thromboplastin Time 23.4 sec (22.0-30.0); Prothrombin Time 12.5 sec (9.0-12.0)
[2017-12-21 00:18] LABS: ALT 46 U/L (21-72); AST 47 U/L (17-59); Albumin 2.7 g/dL (3.5-5.0); Alkaline Phosphatase 233 U/L (38-126); Amylase 49 U/L (30-110); Anion Gap 7 mmol/L; Blood Urea Nitrogen 22 mg/dL (9-20); Calcium 8.4 mg/dL (8.4-10.2); Carbon Dioxide 23 mmol/L (22-30); Chloride 106 mmol/L (98-107); Glucose 90 mg/dL (74-99); Lipase 242 U/L (23-300); Magnesium 2.1 mg/dL (1.6-2.3); Potassium 4.7 mmol/L (3.5-5.1); Sodium 136 mmol/L (137-145); Total Bilirubin 0.2 mg/dL (0.2-1.3); Total Protein 5.1 g/dL (6.3-8.2)
[2017-12-21 00:22] LABS: Anisocytosis Moderate; Basophils % (A) 1 %; Eosinophils # (A) 0.5 k/uL (0-0.7); Eosinophils % (A) 7 %; HGB 9.9 gm/dL (13.0-17.5); Hypochromasia Marked; Lymphocytes # (A) 1.9 k/uL (1.0-4.8); Lymphocytes % (A) 26 %; MCH 26.3 pg (25.0-35.0); MCHC 31.1 g/dL (31.0-37.0); MCV 84.7 fL (80.0-100.0); Mean Platelet Volume 7.5; Microcytosis Slight; Monocytes # (A) 0.4 k/uL (0-1.0); Monocytes % (A) 5 %; Neutrophils # (A) 4.4 k/uL (1.3-7.7); Neutrophils % (A) 60 %; Platelet Count 320 k/uL (150-450); Poikilocytosis Slight; RBC 3.78 m/uL (4.30-5.90); RDW 21.5 % (11.5-15.5); WBC 7.4 k/uL (3.8-10.6)
--- NOTE | 2017-12-21 00:26 | XR ---
EXAMINATION TYPE: XR chest 2V DATE OF EXAM: 12/21/2017 COMPARISON: 12/16/2017 HISTORY: Chest pain TECHNIQUE: Frontal and lateral views of the chest are obtained. FINDINGS: There is coarsening of the pulmonary interstitial markings. There is some coalescent densi ty in the left upper lobe. There is left axillary pacemaker with the tips over the right ventricle. T here are chest leads. There is some blunting of costophrenic angles. There is mild pulmonary congesti on. IMPRESSION: Small pleural effusions. Mild heart failure is possible. Pulmonary congestion is improve d compared to old exam. There is some chronic left upper lobe infiltrate.
--- NOTE | 2017-12-21 00:27 | XR ---
EXAMINATION TYPE: XR abdomen 1V DATE OF EXAM: 12/21/2017 COMPARISON: NONE HISTORY: Abdominal pain TECHNIQUE: 3 views FINDINGS: Bowel gas pattern is normal. There is no sign of intestinal obstruction or pneumoperitoneum . Fecal pattern is normal. There are clips from cholecystectomy. There is no evidence of a mass. Ther e are no pathologic calcifications over the kidneys. IMPRESSION: Nonacute abdomen.
[2017-12-21 00:32] LABS: Creatine Kinase MB 1.5 ng/mL (0.0-2.4)
[2017-12-21 00:44] LABS: Troponin I 0.094 ng/mL (0.000-0.034)
[2017-12-21] MEDS ORDERED: NITROGLYCERIN SL TABS 0.4 MG TAB SUBLINGUAL PRN (00:58)
[2017-12-21] MEDS ORDERED: HEPARIN SODIUM,PORCINE 5,000 UNIT/ML 1 ML VIAL IV ONE (00:58)
[2017-12-21] MEDS ORDERED: HEPARIN SODIUM,PORCINE 5,000 UNIT/ML 1 ML VIAL IV PRN (00:58)
[2017-12-21] MEDS ORDERED: HEPARIN SOD,PORK IN 0.45% NACL 25,000 UNIT in 0.45% NACL 1 500ML.BAG IV SCH (01:00)
[2017-12-21 05:43] LABS: Mean Platelet Volume 7.7; Platelet Count 319 k/uL (150-450)
[2017-12-21] MEDS: NITROGLYCERIN OINT 1 INCH/GM PACKET TOPICAL SCH ×2 (06:14→13:00)
[2017-12-21 06:33] LABS: Creatine Kinase MB 1.7 ng/mL (0.0-2.4)
[2017-12-21 06:47] LABS: Troponin I 0.104 ng/mL (0.000-0.034)
[2017-12-21] MEDS ORDERED: FUROSEMIDE 40 MG TAB PO SCH (09:00)
--- NOTE | 2017-12-21 09:07 | CONS ---
CONSULTATION CHIEF COMPLAINT: Chest pain. Ti is a 41-year-old gentleman with complex and multiple medical problems who was discharged home just 2 days ago. He is currently in a [facility] on IV antibiotics and for physiotherapy. He comes in complaining of what he describes as abdominal distention, fullness and chest discomfort. He describes it as a sharp precordial pain that goes into the epigastric area. He has leg edema and he also has mild shortness of breath. At the time of my evaluation, he appears comfortable at rest and does not seem to be in pain. The abdominal distention and discomfort that he had that originally brought him in seemed to have improved. He has known coronary artery disease and has had multiple angioplasties and follows with a script manager at [facility]. He had angioplasty with stent placement just about 2 weeks ago. His ejection fraction is around 40% to 45%. Has a pacer defibrillator. PAST MEDICAL HISTORY: Significant for coronary artery disease, status post angioplasty, hypertension, diabetes, dyslipidemia, sleep apnea. PAST SURGICAL HISTORY: Significant for hiatal hernia repair, left rotator cuff repair, pseudoaneurysm repair and multiple prior angioplasties. SOCIAL HISTORY: Significant is negative for smoking, EtOH abuse or drug abuse. FAMILY HISTORY: Significant for premature coronary artery disease. REVIEW OF SYSTEMS: HEENT is unremarkable. CARDIAC: As described above. RESPIRATORY: Significant for shortness of breath. GI: Negative. GENITOURINARY: Negative. ALLERGY/IMMUNOLOGY: Negative. SKIN: Negative. MUSCULOSKELETAL: Significant for joint pain. PSYCHOSOCIAL: Negative. ENDOCRINE: Negative. HEMATOLOGIC: Negative. DERM: Negative. CONSTITUTIONAL: Negative. ONCOLOGICAL: Negative. Rest of the system review is not relevant. PHYSICAL EXAMINATION: On exam, comfortable at rest. Afebrile. Heart rate is 85 beats per minute. Blood pressure is 123/86. Respiratory rate is 18. O2 sat is 95% on 2 L. There is no jugular venous distention. Carotid upstroke is normal. Chest exam reveals diminished air entry at the bases. Heart exam reveals first and second heart sounds. No gallop. No murmur. No rub. Abdomen is soft. Examination of the extremities reveals bilateral 1+ pitting edema. LABS: Labs show that his creatinine is normal at 0.8. Troponin is 0.09 and 0.1, which is where it usually is. I reviewed the troponins from recent admissions. BNP is 6580, which is an improvement from his last admission which was at 11,700. EKG shows paced rhythm. ASSESSMENT: 1. Atypical chest pain. 2. History of cardiomyopathy, status post automated implantable cardioverter- defibrillator. 3. Coronary artery disease, status post multiple angioplasties. 4. Chronic systolic heart failure. PLAN: I am going to stop the IV heparin. Continue the Crestor, Toprol XL, Zestril. Lasix first dose we are going to increase to 40 b.i.d. Continue the aspirin and Plavix that he is on. No other cardiac workup at this time. We are going to follow the patient during his stay. MMODL / IJN: [id number] /
[2017-12-21 13:06] LABS: Troponin I 0.078 ng/mL (0.000-0.034)
[2017-12-21 14:08] VITALS: BP 118/80; PULSE 104; RESP 16; TEMP 97.5
[2017-12-21 14:35] VITALS: BMI 38.7
[2017-12-21] MEDS ORDERED: HEPARIN SODIUM,PORCINE 5,000 UNIT/ML 1 ML VIAL SQ SCH (16:00)
[2017-12-22] MEDS ORDERED: ASPIRIN 325 MG TAB PO SCH (09:00)
--- NOTE | 2017-12-27 13:44 | P.DS ---
Providers Date of admission: 12/21/17 00:58 Expected date of discharge: 12/21/17 Attending physician: Safia Clay Consults: 12/21/17 00:58 Consult Physician Urgent Consulting Provider: Valarie Paiz Consult Reason/Comments: cp, dyspnea Do you want consulting provider notified?: Yes Primary care physician: [facility] Course: Please refer to my HPI Plan - Discharge Summary Discharge Rx Participant: No New Discharge Prescriptions: New Furosemide [Lasix] 40 mg PO BID@0900,1600 tab Omeprazole [PriLOSEC] 20 mg PO AC-BID #30 cap Continue Aspirin 81 mg PO DAILY chew Gabapentin [Neurontin] 400 mg PO TID cap Nitroglycerin Sl Tabs [Nitrostat] 0.4 mg SUBLINGUAL Q5M PRN tab PRN Reason: Chest Pain Rosuvastatin Calcium [Crestor] 40 mg PO HS ARIPiprazole [ARIPiprazole Odt] 15 mg PO HS Metoprolol Succinate [Toprol XL] 25 mg PO DAILY Ferrous Sulfate [Iron (65 MG Elemental)] 325 mg PO BID Primidone [Mysoline] 500 mg PO BID Clopidogrel [Plavix] 75 mg PO HS Lisinopril [Zestril] 5 mg PO DAILY Sertraline [Zoloft] 200 mg PO DAILY Vancomycin 1,500 mg IVPB Q12HR@1000,2200 #56 vial Insulin Aspart [NovoLOG (formulary)] 5 unit SQ AC-TID vial Insulin Detemir [Levemir] 20 unit SQ HS syr Midodrine [ProAmatine] 5 mg PO AC-TID tab Sennosides [Senokot] 8.6 mg PO BID PRN tab PRN Reason: Constipation Insulin Aspart [NovoLOG (formulary)] See Protocol SQ ACHS Discontinued Ranitidine HCl 300 mg PO DAILY Furosemide [Lasix] 40 mg PO DAILY Discharge Medication List Aspirin 81 mg PO DAILY chew 07/27/17 [Rx] Gabapentin [Neurontin] 400 mg PO TID cap 07/27/17 [Rx] Nitroglycerin Sl Tabs [Nitrostat] 0.4 mg SUBLINGUAL Q5M PRN tab 07/27/17 [Rx] ARIPiprazole [ARIPiprazole Odt] 15 mg PO HS 10/27/17 [History] Rosuvastatin Calcium [Crestor] 40 mg PO HS 10/27/17 [History] Clopidogrel [Plavix] 75 mg PO HS 12/03/17 [History] Ferrous Sulfate [Iron (65 MG Elemental)] 325 mg PO BID 12/03/17 [History] Lisinopril [Zestril] 5 mg PO DAILY 12/03/17 [History] Metoprolol Succinate [Toprol XL] 25 mg PO DAILY 12/03/17 [History] Primidone [Mysoline] 500 mg PO BID 12/03/17 [History] Sertraline [Zoloft] 200 mg PO DAILY 12/05/17 [History] Insulin Aspart [NovoLOG (formulary)] 5 unit SQ AC-TID vial 12/18/17 [Rx] Insulin Detemir [Levemir] 20 unit SQ HS syr 12/18/17 [Rx] Midodrine [ProAmatine] 5 mg PO AC-TID tab 12/18/17 [Rx] Sennosides [Senokot] 8.6 mg PO BID PRN tab 12/18/17 [Rx] Vancomycin 1,500 mg IVPB Q12HR@1000,2200 #56 vial 12/18/17 [Rx] Furosemide [Lasix] 40 mg PO BID@0900,1600 tab 12/21/17 [Rx] Insulin Aspart [NovoLOG (formulary)] See Protocol SQ ACHS 12/21/17 [History] Omeprazole [PriLOSEC] 20 mg PO AC-BID #30 cap 12/21/17 [Rx] Follow up Appointment(s)/Referral(s): Flo Tse MD [STAFF PHYSICIAN] - 1-2 Days Junie New MD [Primary Care Provider] - 1-2 days Patient Instructions/Handouts: Chest Pain (DC), Acute Abdominal Pain (DC) Discharge Disposition: TRANSFER TO SNF/ECF
--- NOTE | 2017-12-27 13:44 | P.HPIM ---
History of Present Illness H&P Date: 12/21/17 49-year-old pleasant gentleman came to emergency department with compensative chest Discomfort pressure like sensation was evaluated by cardiology rule out acute current syndromes they're not recommending any further intervention patient has bit of pulmonary edema because of which dose of Lasix is being increased patient is being subsequently discharged. Patient has of epigastric abdominal discomfort patient will be given Prilosec patient the chest pain is related to gastroesophageal reflux disease. Patient will be discharged back to subacute rehabilitation. Review of Systems REVIEW OF SYSTEMS: CONSTITUTIONAL: No fever, no malaise, no fatigue. HEENT: No recent visual problems or hearing problems. Denied any sore throat. CARDIOVASCULAR: No orthopnea, PND, no palpitations, no syncope. PULMONARY: No shortness of breath, no cough, no hemoptysis. GASTROINTESTINAL: No diarrhea, no nausea, no vomiting, no abdominal pain. Normoactive bowel sounds. NEUROLOGICAL: No headaches, no weakness, no numbness. HEMATOLOGICAL: Denies any bleeding or petechiae. GENITOURINARY: Denies any burning micturition, frequency, or urgency. MUSCULOSKELETAL/RHEUMATOLOGICAL: Denies any joint pain, swelling, or any muscle pain. ENDOCRINE: Denies any polyuria or polydipsia. The rest of the 14-point review of systems is negative. Past Medical History Past Medical History: Asthma, Coronary Artery Disease (CAD), Chest Pain / Angina , Heart Failure, CVA/TIA, Diabetes Mellitus, GERD/Reflux, Hyperlipidemia, Hypertension, Myocardial Infarction (LA), Osteoarthritis (OA), Pneumonia, Skin Disorder, Sleep Apnea/CPAP/BIPAP Additional Past Medical History / Comment(s): multiple vessel CAD, ischemic cardiomyopathy, diabetic neuropathy bilateral hands and feet, hypertensive cardiovascular disease, SHELIA with no device, chronic gastritis, degenerative disc disease, chronic back pain, depression with hx of suicide attempts, gastroparesis, psoriasis, UTI, migraines, TIA, PUD, hiatal hernia, L rotator cuff tear, bronchitis, pseudoaneurysm L groin post procedure. 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 Date of Last Stent Placement:: 05/25/2017 Type of Cardiac Device: Biventricular Pacemaker, AICD Device Placement Date:: 09/19/15 Past Psychological History: Anxiety, Depression, PTSD Additional Psychological History / Comment(s): Several suicide attempts with use of insulin. PTSD - in 2000 his 3mo old son in his arms (born 2 months premature). Pt states his depression is stable at this time and he denies any suicidal thoughts or plans. He is independent. Pt lives at home with his . Pt drives and he is independent at home. Smoking Status: Never smoker Past Alcohol Use History: None Reported Additional Past Alcohol Use History / Comment(s): Past alcohol abuse - pt states he quit drinking 7yrs ago. Past Drug Use History: None Reported Additional Drug Use History / Comment(s): Pt has smoked marijuana in the past - last smoked in 1999. - Past Family History Mother Family Medical History: Coronary Artery Disease (CAD), Myocardial Infarction (LA ) Additional Family Medical History / Comment(s): 7 LA and faulty heart valve. Pt does not know the age when mother had her LA's. Father History Unknown: Yes Additional Family Medical History / Comment(s): Does not know who father is. Brother(s) Family Medical History: Cancer, Congestive Heart Failure (CHF), Myocardial Infarction (LA) Additional Family Medical History / Comment(s): Parkinsons. Pt does not know at what age his brother had an LA. Patient's other brother has lung CA Patient has Family Medical History: No Reported History Additional Family Medical History / Comment(s): There is a strong family history for heart disease, hypertension, and diabetes. Medications and Allergies Home Medications Medication Instructions Recorded Confirmed Type Aspirin 81 mg PO DAILY chew 07/27/17 12/21/17 Rx Gabapentin [Neurontin] 400 mg PO TID cap 07/27/17 12/21/17 Rx Nitroglycerin Sl Tabs [Nitrostat] 0.4 mg SUBLINGUAL Q5M PRN tab 07/27/17 Rx ARIPiprazole [ARIPiprazole Odt] 15 mg PO HS 10/27/17 12/21/17 History Rosuvastatin Calcium [Crestor] 40 mg PO HS 10/27/17 12/21/17 History Clopidogrel [Plavix] 75 mg PO HS 12/03/17 12/21/17 History Ferrous Sulfate [Iron (65 MG 325 mg PO BID 12/03/17 12/21/17 History Elemental)] Lisinopril [Zestril] 5 mg PO DAILY 12/03/17 12/21/17 History Metoprolol Succinate [Toprol XL] 25 mg PO DAILY 12/03/17 12/21/17 History Primidone [Mysoline] 500 mg PO BID 12/03/17 12/21/17 History Sertraline [Zoloft] 200 mg PO DAILY 12/05/17 12/21/17 History Insulin Aspart [NovoLOG 5 unit SQ AC-TID vial 12/18/17 12/21/17 Rx (formulary)] Insulin Detemir [Levemir] 20 unit SQ HS syr 12/18/17 12/21/17 Rx Midodrine [ProAmatine] 5 mg PO AC-TID tab 12/18/17 12/21/17 Rx Sennosides [Senokot] 8.6 mg PO BID PRN tab 12/18/17 12/21/17 Rx Vancomycin 1,500 mg IVPB Q12HR@1000,2200 #56 12/18/17 12/21/17 Rx vial Furosemide [Lasix] 40 mg PO BID@0900,1600 tab 12/21/17 Rx Insulin Aspart [NovoLOG See Protocol SQ ACHS 12/21/17 12/21/17 History (formulary)] Omeprazole [PriLOSEC] 20 mg PO AC-BID #30 cap 12/21/17 Rx Allergies Allergy/AdvReac Type Severity Reaction Status Date / Time erythromycin base Allergy Severe Rash/Hives Verified 12/21/17 06:22 [Erythromycin Base] cephalexin monohydrate Allergy Unknown Rash/Hives Verified 12/21/17 06:22 [From Keflex] codeine Allergy Unknown Unknown Verified 12/21/17 06:22 meclizine Allergy Unknown Unknown Verified 12/21/17 06:22 Penicillins Allergy Unknown Rash/Hives Verified 12/21/17 06:22 shellfish derived Allergy Unknown Anaphylaxis Verified 12/21/17 06:22 Fish Containing Products Allergy Anaphylaxis Verified 12/21/17 06:22 [Fish] Iodinated Contrast- Oral and Allergy Anaphylaxis Verified 12/21/17 06:22 IV Dye naproxen AdvReac Unknown Compromises Verified 12/21/17 06:22 Kidney Function atorvastatin calcium AdvReac Myalgia Verified 12/21/17 06:22 [From Lipitor] hydrocodone [From [place]] AdvReac Rapid Verified 12/21/17 06:22 Heart Rate Physical Exam PHYSICAL EXAMINATION: GENERAL: The patient is alert and oriented x3, not in any acute distress. Obese HEENT: Pupils are round and equally reacting to light. EOMI. No scleral icterus. No conjunctival pallor. Normocephalic, atraumatic. No pharyngeal erythema. No thyromegaly. CARDIOVASCULAR: S1 and S2 present. No murmurs, rubs, or gallops. PULMONARY: Chest is clear to auscultation, no wheezing or crackles. ABDOMEN: Soft, nontender, nondistended, normoactive bowel sounds. No palpable organomegaly. MUSCULOSKELETAL: No joint swelling or deformity. EXTREMITIES: No cyanosis, clubbing, or pedal edema. NEUROLOGICAL: Gross neurological examination did not reveal any focal deficits. SKIN: No rashes. Results CBC & Chem 7: 12/21/17 05:25 12/20/17 23:30 Thrombosis Risk Factor Assmnt - Choose All That Apply Each Factor Represents 1 point: Age 41-60 years, Obesity (BMI >25) Other Risk Factors: No Thrombosis Risk Factor Assessment Total Risk Factor Score: 2 Thrombosis Risk Factor Assessment Level: Low Risk Assessment and Plan Plan: -Chest pain rule out acute concurrent syndromes patient has multiple annular velocities does have coronary artery disease history coronary artery valid the patient no further intervention from their perspective patient has gastroesophageal reflux disease. -Can start failure chronic systolic dysfunction with mild acute exacerbation dose of Lasix is being increased -Gastroesophageal reflux disease Zantac is being changed to Prilosec for 14 days. History of CVA in the past -Type 2 diabetes mellitus -Hyperlipidemia -Osteoarthritis -Obesity and sleep apnea continue with CPAP machine Patient will be discharged back to subacute rehabilitation.
== END 2017-12-21 16:50 ==
LOC: EC 23:11 → 3OBS 12-21 00:58
PROVIDERS: ADMIT Hospitalist; ATTEND Hospitalist
DX: R07.89 Other chest pain (principal); K21.9 Gastro-esophageal reflux disease without esophagitis; I25.5 Ischemic cardiomyopathy; I25.10 Atherosclerotic heart disease of native coronary artery without angina pectoris; J45.909 Unspecified asthma, uncomplicated; E78.5 Hyperlipidemia, unspecified; M19.90 Unspecified osteoarthritis, unspecified site; E11.40 Type 2 diabetes mellitus with diabetic neuropathy, unspecified; G47.33 Obstructive sleep apnea (adult) (pediatric); K29.50 Unspecified chronic gastritis without bleeding; G89.29 Other chronic pain; M54.9 Dorsalgia, unspecified; F32.9 Major depressive disorder, single episode, unspecified; I50.22 Chronic systolic (congestive) heart failure; I11.0 Hypertensive heart disease with heart failure; R14.0 Abdominal distension (gaseous); E11.43 Type 2 diabetes mellitus with diabetic autonomic (poly)neuropathy; K31.84 Gastroparesis; Z86.73 Personal history of transient ischemic attack (TIA), and cerebral infarction without residual deficits; Z79.899 Other long term (current) drug therapy; Z79.02 Long term (current) use of antithrombotics/antiplatelets; Z88.1 Allergy status to other antibiotic agents; Z88.8 Allergy status to other drugs, medicaments and biological substances; Z88.5 Allergy status to narcotic agent; Z91.041 Radiographic dye allergy status; Z88.0 Allergy status to penicillin; Z91.013 Allergy to seafood; Z95.810 Presence of automatic (implantable) cardiac defibrillator; F43.10 Post-traumatic stress disorder, unspecified; F41.9 Anxiety disorder, unspecified; Z99.89 Dependence on other enabling machines and devices; I25.2 Old myocardial infarction; Z87.01 Personal history of pneumonia (recurrent); Z95.5 Presence of coronary angioplasty implant and graft; Z91.5 Personal history of self-harm; Z87.19 Personal history of other diseases of the digestive system; Z87.440 Personal history of urinary (tract) infections; Z86.14 Personal history of Methicillin resistant Staphylococcus aureus infection; Z90.49 Acquired absence of other specified parts of digestive tract; Z82.0 Family history of epilepsy and other diseases of the nervous system; Z80.1 Family history of malignant neoplasm of trachea, bronchus and lung; Z79.82 Long term (current) use of aspirin; Z79.4 Long term (current) use of insulin; E66.9 Obesity, unspecified; Z68.38 Body mass index [BMI] 38.0-38.9, adult
CPT/HCPCS: 99285; 96376 ×2; 96365 ×2; 96366 ×10; 36415; 93005; 83880; 80053; 82150; 82550 ×2; 82553 ×2; 83690; 83735; 84484 ×2; 85025; 85049; 85610; 85730 ×2; 71046; 74018; G0378; J1644 ×2

== ENCOUNTER 2017-12-30 18:38 | Inpatient (IN) | payer MEDICARE, OTHER ==
[2017-12-30] MEDS ORDERED: FUROSEMIDE 10 MG/ML 10 ML VIAL IV STA (18:52)
[2017-12-30] MEDS ORDERED: ALTEPLASE 2 MG VIAL (CATHFLO) IV STA (19:20)
--- NOTE | 2017-12-30 19:33 | ED ---
SOB HPI - General Chief Complaint: Shortness of Breath Stated Complaint: Sob Time Seen by Provider: 12/30/17 18:47 Source: patient, EMS Mode of arrival: EMS Limitations: no limitations - History of Present Illness Initial Comments: 32 years old gentleman with a history of coronary artery disease, congestive heart failure, CVA, TIA, hypertension comes in with the shortness of breath he said this is ongoing for a few days for the last 2 days it's worse he can breathe even while at rest he status post pacemaker and defibrillator he does have a history of congestive heart failure now he has routine a lot of fluids there is a significant weight gain and swelling of the legs have come up to the above the knees. Denies any abdominal pain no frequency urgency dysuria no symptoms of TIA or CVA - Related Data Home Medications Medication Instructions Recorded Confirmed ARIPiprazole [ARIPiprazole Odt] 15 mg PO HS 10/27/17 12/30/17 Clopidogrel [Plavix] 75 mg PO HS 12/03/17 12/30/17 Ferrous Sulfate [Iron (65 MG 325 mg PO BID 12/03/17 12/30/17 Elemental)] Lisinopril [Zestril] 5 mg PO DAILY 12/03/17 12/30/17 Metoprolol Succinate [Toprol XL] 25 mg PO DAILY 12/03/17 12/30/17 Primidone [Mysoline] 500 mg PO BID 12/03/17 12/30/17 Sertraline [Zoloft] 200 mg PO DAILY 12/05/17 12/30/17 Insulin Aspart [NovoLOG See Protocol SQ ACHS 12/21/17 12/30/17 (formulary)] Furosemide 40 mg PO DIRECTED 12/30/17 12/30/17 Furosemide [Lasix] 40 mg PO DIRECTED 12/30/17 12/30/17 Ondansetron [Zofran] 4 mg PO Q8HR PRN 12/30/17 12/30/17 Rosuvastatin [Crestor] 20 mg PO HS 12/30/17 12/30/17 Vancomycin 1,500 mg IVPB HS 12/30/17 12/30/17 traMADol HCl [Ultram] 50 mg PO QID PRN 12/30/17 12/30/17 Previous Rx's Medication Instructions Recorded Aspirin 81 mg PO DAILY chew 07/27/17 Gabapentin [Neurontin] 400 mg PO TID cap 07/27/17 Nitroglycerin Sl Tabs [Nitrostat] 0.4 mg SUBLINGUAL Q5M PRN tab 07/27/17 Insulin Aspart [NovoLOG 5 unit SQ AC-TID vial 12/18/17 (formulary)] Insulin Detemir [Levemir] 20 unit SQ HS syr 12/18/17 Midodrine [ProAmatine] 5 mg PO AC-TID tab 12/18/17 Sennosides [Senokot] 8.6 mg PO BID PRN tab 12/18/17 Omeprazole [PriLOSEC] 20 mg PO AC-BID #30 cap 12/21/17 Allergies Allergy/AdvReac Type Severity Reaction Status Date / Time erythromycin base Allergy Severe Rash/Hives Verified 12/30/17 19:50 [Erythromycin Base] cephalexin monohydrate Allergy Unknown Rash/Hives Verified 12/30/17 19:50 [From Keflex] codeine Allergy Unknown Unknown Verified 12/30/17 19:50 meclizine Allergy Unknown Unknown Verified 12/30/17 19:50 Penicillins Allergy Unknown Rash/Hives Verified 12/30/17 19:50 shellfish derived Allergy Unknown Anaphylaxis Verified 12/30/17 19:50 Fish Containing Products Allergy Anaphylaxis Verified 12/30/17 19:50 [Fish] Iodinated Contrast- Oral and Allergy Anaphylaxis Verified 12/30/17 19:50 IV Dye naproxen AdvReac Unknown Compromises Verified 12/30/17 19:50 Kidney Function atorvastatin calcium AdvReac Myalgia Verified 12/30/17 19:50 [From Lipitor] hydrocodone [From Issue] AdvReac Rapid Verified 12/30/17 19:50 Heart Rate Review of Systems ROS Statement: Those systems with pertinent positive or pertinent negative responses have been documented in the HPI. ROS Other: All systems not noted in ROS Statement are negative. Past Medical History Past Medical History: Asthma, Coronary Artery Disease (CAD), Chest Pain / Angina , Heart Failure, CVA/TIA, Diabetes Mellitus, GERD/Reflux, Hyperlipidemia, Hypertension, Myocardial Infarction (ND), Osteoarthritis (OA), Pneumonia, Skin Disorder, Sleep Apnea/CPAP/BIPAP Additional Past Medical History / Comment(s): multiple vessel CAD, ischemic cardiomyopathy, diabetic neuropathy bilateral hands and feet, hypertensive cardiovascular disease, SHELIA with no device, chronic gastritis, degenerative disc disease, chronic back pain, depression with hx of suicide attempts, gastroparesis, psoriasis, UTI, migraines, TIA, PUD, hiatal hernia, L rotator cuff tear, bronchitis, pseudoaneurysm L groin post procedure. Last Myocardial Infarction Date:: May 2017 History of Any Multi-Drug Resistant Organisms: MRSA Date of last positivie culture/infection: 11/05/2017 (Culture done at [facility]) MDRO Source:: legs Past Surgical History: AICD, Appendectomy, Cholecystectomy, Heart Catheterization With Stent, Hernia Repair Additional Past Surgical History / Comment(s): Pt has had multiple cardiac procedures- caths/stents/PTCA, last stent placed at [facility] - May 2017, SAVANNAH, R inguinal hernia repair, umbilical hernia repair, right orchiectomy due to necrosis, right hand surgery r/t injury, colonoscopy, cystoscopy ( scraped bladder parrish), stents 10/2017, Past Anesthesia/Blood Transfusion Reactions: No Reported Reaction Additional Past Anesthesia/Blood Transfusion Reaction / Comment(s): . Date of Last Stent Placement:: 05/25/2017 Type of Cardiac Device: Biventricular Pacemaker, AICD Device Placement Date:: 09/19/15 Past Psychological History: Anxiety, Depression, PTSD Smoking Status: Never smoker Past Alcohol Use History: None Reported Past Drug Use History: None Reported - Past Family History Mother Family Medical History: Coronary Artery Disease (CAD), Myocardial Infarction (ND ) Additional Family Medical History / Comment(s): 7 ND and faulty heart valve. Pt does not know the age when mother had her ND's. Father History Unknown: Yes Additional Family Medical History / Comment(s): Does not know who father is. Brother(s) Family Medical History: Cancer, Congestive Heart Failure (CHF), Myocardial Infarction (ND) Additional Family Medical History / Comment(s): Parkinsons. Pt does not know at what age his brother had an ND. Patient's other brother has lung CA Patient has Family Medical History: No Reported History Additional Family Medical History / Comment(s): There is a strong family history for heart disease, hypertension, and diabetes. General Exam Limitations: no limitations Course Vital Signs 12/30/17 12/30/17 12/30/17 18:40 18:54 20:39 Temperature 97.9 F Pulse Rate 107 H 100 Respiratory 26 H 26 H 20 Rate Blood Pressure 125/92 120/79 O2 Sat by Pulse 100 100 Oximetry 12/30/17 21:00 Temperature Pulse Rate 97 Respiratory 16 Rate Blood Pressure 125/75 O2 Sat by Pulse 99 Oximetry EKG is a sinus tachycardia ventricular rate is 1 of 4 MD interval is 168 QRS duration is 86 QT/QTc is 326/420 review of this EKG does not reveal any ST elevation or ST depression. This is at 2044 and at this point I do not have any labs yet, disposition be done as soon as I have been labs available clinically he needs admission he has a 4+ edema bilateral he is urinary retention chest x-ray confirms congestive heart failure and clinically he is in failure. Os to void bladder scan showed 600 mils in the bladder considering that the Mtz catheter was inserted. Final labs are available about 3 hours after patient was in the ER his CBC, INR , venous blood gases are unremarkable troponin is 0.076 BNP to 7009 0 and now chest x-ray confirms congestive heart failure patient be admitted to Dr. Clay service cardiology be consulted I do not plan to heparinize him because he has no chest pain and I believe this could very well be secondary to congestive heart failure. Patient sent during all his previous heart attacks he felt chest pain though he is a diabetic Medical Decision Making - Lab Data Result diagrams: 12/30/17 20:35 12/30/17 20:35 Lab Results 12/30/17 12/30/17 12/30/17 Range/Units 19:54 20:35 20:35 WBC 5.6 (3.8-10.6) k/uL RBC 4.28 L (4.30-5.90) m/uL Hgb 11.0 L (13.0-17.5) gm/dL Hct 37.3 L (39.0-53.0) % MCV 87.3 (80.0-100.0) fL MCH 25.8 (25.0-35.0) pg MCHC 29.6 L (31.0-37.0) g/dL RDW 21.8 H (11.5-15.5) % Plt Count 258 (150-450) k/uL Neutrophils % 64 % Lymphocytes % 20 % Monocytes % 5 % Eosinophils % 9 % Basophils % 1 % Neutrophils # 3.6 (1.3-7.7) k/uL Lymphocytes # 1.2 (1.0-4.8) k/uL Monocytes # 0.3 (0-1.0) k/uL Eosinophils # 0.5 (0-0.7) k/uL Basophils # 0.0 (0-0.2) k/uL Hypochromasia Marked Poikilocytosis Slight Anisocytosis Moderate Microcytosis Slight PT (9.0-12.0) sec INR (<1.2) APTT (22.0-30.0) sec VBG pH 7.49 H (7.31-7.41) VBG pCO2 31 L (37-51) mmHg VBG HCO3 23 L (24-28) mmol/L Sodium (137-145) mmol/L Potassium (3.5-5.1) mmol/L Chloride (98-107) mmol/L Carbon Dioxide (22-30) mmol/L Anion Gap mmol/L BUN (9-20) mg/dL Creatinine (0.66-1.25) mg/dL Est GFR (CKD-EPI)AfAm (>60 ml/min/1.73 sqM) Est GFR (CKD-EPI)NonAf (>60 ml/min/1.73 sqM) Glucose (74-99) mg/dL POC Glucose (mg/dL) (75-99) mg/dL POC Glu Wireless Sales Associate ID Calcium (8.4-10.2) mg/dL Total Bilirubin (0.2-1.3) mg/dL AST (17-59) U/L ALT (21-72) U/L Alkaline Phosphatase (38-126) U/L Total Creatine Kinase (55-170) U/L CK-MB (CK-2) (0.0-2.4) ng/mL CK-MB (CK-2) Rel Index Troponin I (0.000-0.034) ng/mL NT-Pro-B Natriuret Pep pg/mL Total Protein (6.3-8.2) g/dL Albumin (3.5-5.0) g/dL Urine Color Light Yellow Urine Appearance Clear (Clear) Urine pH 5.0 (5.0-8.0) Ur Specific [place] 1.008 (1.001-1.035) Urine Protein Negative (Negative) Urine Glucose (UA) Negative (Negative) Urine Ketones Negative (Negative) Urine Blood Negative (Negative) Urine Nitrite Negative (Negative) Urine Bilirubin Negative (Negative) Urine Urobilinogen <2.0 (<2.0) mg/dL Ur Leukocyte Esterase Negative (Negative) 12/30/17 12/30/17 12/30/17 Range/Units 20:35 20:35 20:35 WBC (3.8-10.6) k/uL RBC (4.30-5.90) m/uL Hgb (13.0-17.5) gm/dL Hct (39.0-53.0) % MCV (80.0-100.0) fL MCH (25.0-35.0) pg MCHC (31.0-37.0) g/dL RDW (11.5-15.5) % Plt Count (150-450) k/uL Neutrophils % % Lymphocytes % % Monocytes % % Eosinophils % % Basophils % % Neutrophils # (1.3-7.7) k/uL Lymphocytes # (1.0-4.8) k/uL Monocytes # (0-1.0) k/uL Eosinophils # (0-0.7) k/uL Basophils # (0-0.2) k/uL Hypochromasia Poikilocytosis Anisocytosis Microcytosis PT 11.4 (9.0-12.0) sec INR 1.2 H (<1.2) APTT 21.1 L (22.0-30.0) sec VBG pH (7.31-7.41) VBG pCO2 (37-51) mmHg VBG HCO3 (24-28) mmol/L Sodium 137 (137-145) mmol/L Potassium 4.3 (3.5-5.1) mmol/L Chloride 105 (98-107) mmol/L Carbon Dioxide 26 (22-30) mmol/L Anion Gap 6 mmol/L BUN 25 H (9-20) mg/dL Creatinine 1.00 (0.66-1.25) mg/dL Est GFR (CKD-EPI)AfAm >90 (>60 ml/min/1.73 sqM) Est GFR (CKD-EPI)NonAf >90 (>60 ml/min/1.73 sqM) Glucose 57 L (74-99) mg/dL POC Glucose (mg/dL) (75-99) mg/dL POC Glu [employer] Sales Associate ID Calcium 8.5 (8.4-10.2) mg/dL Total Bilirubin 0.2 (0.2-1.3) mg/dL AST 74 H (17-59) U/L ALT 82 H (21-72) U/L Alkaline Phosphatase 374 H (38-126) U/L Total Creatine Kinase 50 L (55-170) U/L CK-MB (CK-2) 1.2 (0.0-2.4) ng/mL CK-MB (CK-2) Rel Index 2.4 Troponin I 0.076 H* (0.000-0.034) ng/mL NT-Pro-B Natriuret Pep pg/mL Total Protein 5.2 L (6.3-8.2) g/dL Albumin 2.7 L (3.5-5.0) g/dL Urine Color Urine Appearance (Clear) Urine pH (5.0-8.0) Ur Specific [place] (1.001-1.035) Urine Protein (Negative) Urine Glucose (UA) (Negative) Urine Ketones (Negative) Urine Blood (Negative) Urine Nitrite (Negative) Urine Bilirubin (Negative) Urine Urobilinogen (<2.0) mg/dL Ur Leukocyte Esterase (Negative) 12/30/17 12/30/17 12/30/17 Range/Units 20:35 21:30 21:58 WBC (3.8-10.6) k/uL RBC (4.30-5.90) m/uL Hgb (13.0-17.5) gm/dL Hct (39.0-53.0) % MCV (80.0-100.0) fL MCH (25.0-35.0) pg MCHC (31.0-37.0) g/dL RDW (11.5-15.5) % Plt Count (150-450) k/uL Neutrophils % % Lymphocytes % % Monocytes % % Eosinophils % % Basophils % % Neutrophils # (1.3-7.7) k/uL Lymphocytes # (1.0-4.8) k/uL Monocytes # (0-1.0) k/uL Eosinophils # (0-0.7) k/uL Basophils # (0-0.2) k/uL Hypochromasia Poikilocytosis Anisocytosis Microcytosis PT (9.0-12.0) sec INR (<1.2) APTT (22.0-30.0) sec VBG pH (7.31-7.41) VBG pCO2 (37-51) mmHg VBG HCO3 (24-28) mmol/L Sodium (137-145) mmol/L Potassium (3.5-5.1) mmol/L Chloride (98-107) mmol/L Carbon Dioxide (22-30) mmol/L Anion Gap mmol/L BUN (9-20) mg/dL Creatinine (0.66-1.25) mg/dL Est GFR (CKD-EPI)AfAm (>60 ml/min/1.73 sqM) Est GFR (CKD-EPI)NonAf (>60 ml/min/1.73 sqM) Glucose (74-99) mg/dL POC Glucose (mg/dL) 78 (75-99) mg/dL POC Glu Wireless Sales Associate ID Lluvia Garcia Calcium (8.4-10.2) mg/dL Total Bilirubin (0.2-1.3) mg/dL AST (17-59) U/L ALT (21-72) U/L Alkaline Phosphatase (38-126) U/L Total Creatine Kinase (55-170) U/L CK-MB (CK-2) (0.0-2.4) ng/mL CK-MB (CK-2) Rel Index Troponin I (0.000-0.034) ng/mL NT-Pro-B Natriuret Pep 7090 pg/mL Total Protein (6.3-8.2) g/dL Albumin (3.5-5.0) g/dL Urine Color Yellow Urine Appearance Clear (Clear) Urine pH 5.0 (5.0-8.0) Ur Specific [place] 1.011 (1.001-1.035) Urine Protein Negative (Negative) Urine Glucose (UA) Negative (Negative) Urine Ketones Negative (Negative) Urine Blood Negative (Negative) Urine Nitrite Negative (Negative) Urine Bilirubin Negative (Negative) Urine Urobilinogen <2.0 (<2.0) mg/dL Ur Leukocyte Esterase Negative (Negative) Disposition Clinical Impression: Dyspnea, Urine retention, Congestive heart failure Disposition: ADMITTED IP TO THIS HOSP Condition: Good Referrals: Junie New MD [Primary Care Provider] - 1-2 days
--- NOTE | 2017-12-30 19:49 | XR ---
EXAMINATION TYPE: XR chest 2V DATE OF EXAM: 12/30/2017 COMPARISON: 12/21/2017 HISTORY: Short of breath TECHNIQUE: Frontal and lateral views of the chest are obtained. FINDINGS: There is mild pulmonary vascular congestion. Heart is slightly enlarged. There is blunting of costophrenic angles. There is left axillary pacemaker with the lead tips in the right ventricle. There are chest leads. IMPRESSION: Mild congestive heart failure with pleural effusions. No change.
[2017-12-30 20:09] LABS: Appearance,Urine Clear (Clear); Bilirubin,Urine Negative (Negative); Blood,Urine Negative (Negative); Color,Urine Light Yellow; Glucose,Urine (UA) Negative (Negative); Ketones,Urine Negative (Negative); Leukocyte Esterase,Urine Negative (Negative); Nitrite,Urine Negative (Negative); Protein,Urine Negative (Negative); Specific Gravity,Urine 1.008 (1.001-1.035); Urobilinogen,Urine <2.0 mg/dL (<2.0)
[2017-12-30 20:51] LABS: Anisocytosis Moderate; Basophils % (A) 1 %; Eosinophils # (A) 0.5 k/uL (0-0.7); Eosinophils % (A) 9 %; HCT 37.3 % (39.0-53.0); Hypochromasia Marked; Lymphocytes # (A) 1.2 k/uL (1.0-4.8); Lymphocytes % (A) 20 %; MCH 25.8 pg (25.0-35.0); MCHC 29.6 g/dL (31.0-37.0); MCV 87.3 fL (80.0-100.0); Microcytosis Slight; Monocytes # (A) 0.3 k/uL (0-1.0); Monocytes % (A) 5 %; Neutrophils # (A) 3.6 k/uL (1.3-7.7); Neutrophils % (A) 64 %; Platelet Count 258 k/uL (150-450); Poikilocytosis Slight; RBC 4.28 m/uL (4.30-5.90); RDW 21.8 % (11.5-15.5); WBC 5.6 k/uL (3.8-10.6)
[2017-12-30 20:53] LABS: VBG PH 7.49 (7.31-7.41)
[2017-12-30 21:11] LABS: INR 1.2 (<1.2); Partial Thromboplastin Time 21.1 sec (22.0-30.0); Prothrombin Time 11.4 sec (9.0-12.0)
[2017-12-30 21:13] LABS: ALT 82 U/L (21-72); AST 74 U/L (17-59); Albumin 2.7 g/dL (3.5-5.0); Alkaline Phosphatase 374 U/L (38-126); Anion Gap 6 mmol/L; Blood Urea Nitrogen 25 mg/dL (9-20); Calcium 8.5 mg/dL (8.4-10.2); Carbon Dioxide 26 mmol/L (22-30); Chloride 105 mmol/L (98-107); Glucose 57 mg/dL (74-99); Potassium 4.3 mmol/L (3.5-5.1); Sodium 137 mmol/L (137-145); Total Bilirubin 0.2 mg/dL (0.2-1.3); Total Protein 5.2 g/dL (6.3-8.2)
[2017-12-30 21:37] LABS: Creatine Kinase MB 1.2 ng/mL (0.0-2.4)
[2017-12-30 21:38] LABS: Troponin I 0.076 ng/mL (0.000-0.034)
[2017-12-30 22:01] LABS: Glucose,Whole Blood 78 mg/dL (75-99)
[2017-12-30 22:04] LABS: Appearance,Urine Clear (Clear); Bilirubin,Urine Negative (Negative); Blood,Urine Negative (Negative); Color,Urine Yellow; Glucose,Urine (UA) Negative (Negative); Ketones,Urine Negative (Negative); Leukocyte Esterase,Urine Negative (Negative); Nitrite,Urine Negative (Negative); Protein,Urine Negative (Negative); Specific Gravity,Urine 1.011 (1.001-1.035); Urobilinogen,Urine <2.0 mg/dL (<2.0)
[2017-12-30] MEDS ORDERED: NITROGLYCERIN SL TABS 0.4 MG TAB SUBLINGUAL PRN ×2 (22:07→22:23)
[2017-12-30] MEDS ORDERED: ONDANSETRON 4 MG TAB PO PRN (22:23)
[2017-12-30] MEDS ORDERED: SENNOSIDES 8.6 MG TAB PO PRN (22:23)
[2017-12-30] MEDS ORDERED: FUROSEMIDE 40 MG TAB PO SCH (22:30)
[2017-12-30] MEDS ORDERED: FUROSEMIDE 40 MG PO SCH (22:30)
--- NOTE | 2017-12-30 23:52 | HP ---
HISTORY AND PHYSICAL DATE OF SERVICE: 12/30/2017 CHIEF COMPLAINT: Shortness of breath and leg edema. HISTORY OF PRESENT ILLNESS: This 42-year-old gentleman with a past medical history of CHF, history of cardiomyopathy, history of CVA, TIA, hypertension, being followed by Dr. Junie New in the outpatient setting, was admitted with increasing shortness of breath and cough as well as bilateral leg swelling; erythema and some discharge also noted. There is no history of any fever, rigor or chills. No history of headache, loss of consciousness, seizures. BNP was elevated. The patient's chest x-ray showed CHF and the patient was admitted for further evaluation and treatment. Troponin is indeterminate at 0.076. There is no history of any fever, rigors, chills. No history of headache, loss of consciousness, seizures. PAST MEDICAL HISTORY: 1. History of asthma. 2. CAD. 3. CHF. 4. CVA, TIA. 5. Diabetes mellitus. 6. GERD. 7. Hypertension. 8. Hyperlipidemia. 9. History of sleep apnea. HOME MEDICATIONS: 1. Zofran 4 mg q.8 p.r.n. 2. Ultram 50 mg q.i.d. p.r.n. 3. Senokot 8.6 mg b.i.d. p.r.n. 4. Nitrostat 0.4 sublingually p.r.n. 5. NovoLog before meals and at bedtime. 6. ProAmatine 5 mg before meals t.i.d. 7. NovoLog 5 units before meals t.i.d. 8. Neurontin 400 mg t.i.d. 9. Mysoline 500 mg p.o. b.i.d. 10.Prilosec 20 mg b.i.d. 11.Lasix 40 mg p.r.n. 12.Vancomycin 1.5 mg IV piggyback. 13.Iron sulfate 325 mg p.o. b.i.d. 14.Zoloft 200 mg p.o. daily. 15.Toprol XL 25 mg p.o. daily. 16.Zestril 5 mg p.o. daily. 17.Levemir 10 units subcutaneously at bedtime. 18.Crestor 20 mg at bedtime. 19.Plavix 75 mg at bedtime. 20.Aspirin 81 mg p.o. daily. 21.Abilify 15 mg at bedtime. ALLERGIES: 1. ERYTHROMYCIN. 2. CEPHALEXIN. 3. CODEINE. 4. MECLIZINE. 5. PENICILLIN. 6. SHELLFISH. 7. FISH-CONTAINING PRODUCTS. 8. IODINATED CONTRAST. 9. NAPROSYN. 10.ATORVASTATIN. 11.NORCO. FAMILY HISTORY: History of coronary artery disease in the family. SOCIAL HISTORY: No history of smoking. No history of alcohol intake. REVIEW OF SYSTEMS: ENT: Diminished hearing. Diminished vision. CARDIOVASCULAR SYSTEM: As mentioned earlier. RESPIRATORY SYSTEM: As mentioned earlier. GI: No nausea, vomiting. : No dysuria. NERVOUS SYSTEM: No numbness, weakness. ALLERGY/IMMUNOLOGY: No asthma, hayfever. MUSCULOSKELETAL: As mentioned earlier. HEMATOLOGY/ONCOLOGY: No history of anemia. ENDOCRINE: As mentioned earlier. CONSTITUTIONAL: As mentioned earlier. DERMATOLOGY: As mentioned earlier. RHEUMATOLOGY: Negative. PSYCHIATRY: As mentioned earlier. PHYSICAL EXAMINATION: Patient is alert and oriented x2. Pulse 100, blood pressure 120/79, respiration 20, temperature normal, pulse ox 100% on 2 L. HEENT: Conjunctivae normal. Oral mucosa moist. NECK: Jugular venous distention. CARDIOVASCULAR SYSTEM: S1, S2 muffled. Ejection systolic murmur. RESPIRATORY SYSTEM: Breath sounds diminished at the bases. A few scattered rhonchi and crackles. ABDOMEN: Soft, obese, non-tender. LEGS: Bilateral leg edema. Erythema and cellulitis also present, left more than the right. NERVOUS SYSTEM: Higher functions as mentioned earlier. Moves all 4 limbs. No focal motor or sensory deficits. LYMPHATICS: No lymph node palpable in neck, axillae or groin. SKIN: No ulcer, rash, bleeding. LABS: WBC 5.6, hemoglobin 11, INR 1.2. Glucose 57. AST 74, ALT is 82, alkaline phosphatase 374. Troponin 0.076. Albumin is 2.7. ASSESSMENT: 1. Congestive heart failure, acute exacerbation, with acute on chronic systolic dysfunction, ejection fraction 20% to 25%. 2. Bilateral leg cellulitis. 3. Increased AST, ALT, possibly hepatitis; congestive hepatopathy secondary to congestive heart failure. 4. Troponin 0.076, indeterminate. 5. History of asthma. 6. History of coronary artery disease. 7. History of cerebrovascular accident, transient ischemic attack. 8. Diabetes mellitus, type 2. 9. Gastroesophageal reflux disease. 10.Hypertension. 11.Hyperlipidemia. 12.History of myocardial infarction. 13.History of pneumonia. 14.History of ischemic cardiomyopathy. 15.History of diabetic neuropathy. 16.History of sleep apnea. 17.History of chronic gastritis. 18.History of depression with suicide attempts. 19.History of gastroparesis. 20.History of degenerative joint disease. 21.History of Methicillin-resistant Staphylococcus aureus. 22.History of automated implantable cardioverter defibrillator. 23.History of cardiac catheterization and stents. 24.Anxiety, depression, post-traumatic stress disorder. RECOMMENDATIONS AND DISCUSSION: In this 42-year-old gentleman who presented with multiple complex medical issues, we will monitor the patient closely, continue the current medications, continue symptomatic treatment. Will initiate IV Lasix. Monitor fluid/electrolyte balance closely. I would also recommend empiric antibiotics. Patient is ALLERGIC TO CEPHALEXIN AND ERYTHROMYCIN. I would recommend IV Levaquin and continue to monitor. Guarded prognosis because of the multiple complex medical issues. Further recommendations to follow. MMODL / IJN: [id number] /
[2017-12-31] MEDS: VANCOMYCIN 1,500 MG in SODIUM CHLORIDE 0.9% 250 ML IVPB SCH ×2 (00:18→23:43)
[2017-12-31] MEDS: LEVOFLOXACIN 500MG-D5W PMX 500 MG in DEXTROSE/WATER 1 100ML.BAG IVPB SCH ×2 (00:40→23:43)
[2017-12-31 02:36] LABS: Creatine Kinase MB 1.5 ng/mL (0.0-2.4)
[2017-12-31 02:39] LABS: Troponin I 0.092 ng/mL (0.000-0.034)
[2017-12-31] MEDS ORDERED: VANCOMYCIN IV PER PHARMACY 1 EACH MISC MISCELLANE ONE (02:45)
[2017-12-31 03:34] LABS: Glucose,Whole Blood 109 mg/dL (75-99)
[2017-12-31 05:52] LABS: Glucose,Whole Blood 91 mg/dL (75-99)
[2017-12-31] MEDS: INSULIN ASPART 100 UNIT/ML 1 ML 10 ML VIAL SQ SCH ×3 (05:59→17:47)
[2017-12-31] MEDS: PANTOPRAZOLE 40 MG TABLET PO SCH ×2 (06:30→17:46)
[2017-12-31] MEDS: MIDODRINE 5 MG TAB PO SCH ×3 (06:30→17:47)
[2017-12-31 08:27] LABS: Anisocytosis Moderate; Basophils % (A) 1 %; Eosinophils # (A) 0.5 k/uL (0-0.7); Eosinophils % (A) 8 %; HCT 37.3 % (39.0-53.0); HGB 11.2 gm/dL (13.0-17.5); Hypochromasia Marked; Lymphocytes % (A) 18 %; MCH 26.9 pg (25.0-35.0); MCHC 30.2 g/dL (31.0-37.0); MCV 89.1 fL (80.0-100.0); Mean Platelet Volume 7.1; Monocytes # (A) 0.4 k/uL (0-1.0); Monocytes % (A) 6 %; Neutrophils # (A) 3.8 k/uL (1.3-7.7); Neutrophils % (A) 65 %; Platelet Count 247 k/uL (150-450); Poikilocytosis Slight; RBC 4.18 m/uL (4.30-5.90); RDW 21.8 % (11.5-15.5); WBC 5.8 k/uL (3.8-10.6)
[2017-12-31] MEDS: HEPARIN SODIUM,PORCINE 5,000 UNIT/ML 1 ML VIAL SQ SCH ×2 (08:39→20:34)
[2017-12-31] MEDS: LISINOPRIL 5 MG TAB PO SCH (08:39)
[2017-12-31] MEDS: PRIMIDONE 250 MG TAB PO SCH ×2 (08:39→20:35)
[2017-12-31] MEDS: SERTRALINE 100 MG TAB PO SCH (08:40)
[2017-12-31] MEDS: FERROUS SULFATE 325 MG TAB PO SCH ×2 (08:40→20:35)
[2017-12-31] MEDS: METOPROLOL SUCCINATE (ER) 25 MG TAB.ER.24H PO SCH (08:40)
[2017-12-31] MEDS: GABAPENTIN 400 MG CAP PO SCH ×3 (08:40→20:34)
[2017-12-31 08:50] LABS: Anion Gap 8 mmol/L; Blood Urea Nitrogen 21 mg/dL (9-20); Calcium 8.4 mg/dL (8.4-10.2); Carbon Dioxide 25 mmol/L (22-30); Chloride 104 mmol/L (98-107); Cholesterol 103 mg/dL (<200); Glucose 78 mg/dL (74-99); HDL Cholesterol 38 mg/dL (40-60); LDL Cholesterol,Calculated 42 mg/dL (0-99); Potassium 4.8 mmol/L (3.5-5.1); Sodium 137 mmol/L (137-145); Triglycerides 114 mg/dL (<150)
[2017-12-31] MEDS ORDERED: ASPIRIN 325 MG TAB PO SCH (09:00)
[2017-12-31 09:13] LABS: Creatine Kinase MB 1.6 ng/mL (0.0-2.4)
[2017-12-31 09:15] LABS: Troponin I 0.075 ng/mL (0.000-0.034)
--- NOTE | 2017-12-31 09:59 | P.CRDCN ---
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 He has had several readmissions to the hospital, most recently he was discharged from the hospital on the fifth of this month. Patient presents back to the hospital on this occasion with symptoms of progressively worsening shortness of breath with associated peripheral edema and weight gain. Chest x-ray on admission revealed mild congestive heart failure with bilateral pleural effusions. EKG shows a paced rhythm with underlying sinus tachycardia. Most recent echocardiogram with Doppler study was performed in November of this year which revealed an ejection fraction of 20-25% . According to the patient, he has been taking all his medications as prescribed, states that he has been restricting his fluids and not eating salt. Blood pressure this morning 128/80, heart rate in the 90s. Temperature 97.7 degrees 99% on 2 L of oxygen. White blood cell count 5.8, hemoglobin 11.2, platelet count 247. Sodium 137, potassium 4.8, BUN 21, creatinine 0.8. AST 74 , ALT 82, alk phos 274. BNP level 7090. Troponins 0.07, 0.09, 0.07. Of note, patient does have abnormality in his troponin consistently. Patient denies having any chest discomfort. Past Medical History Past Medical History: Asthma, Coronary Artery Disease (CAD), Chest Pain / Angina , Heart Failure, CVA/TIA, Diabetes Mellitus, GERD/Reflux, Hyperlipidemia, Hypertension, Myocardial Infarction (VT), Osteoarthritis (OA), Pneumonia, Skin Disorder, Sleep Apnea/CPAP/BIPAP Additional Past Medical History / Comment(s): multiple vessel CAD, ischemic cardiomyopathy, diabetic neuropathy bilateral hands and feet, hypertensive cardiovascular disease, SHELIA with no device, chronic gastritis, degenerative disc disease, chronic back pain, depression with hx of suicide attempts, gastroparesis, psoriasis, UTI, migraines, TIA, PUD, hiatal hernia, L rotator cuff tear, bronchitis, pseudoaneurysm L groin post procedure. 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 Date of Last Stent Placement:: 05/25/2017 Type of Cardiac Device: Biventricular Pacemaker, AICD Device Placement Date:: 09/19/15 Past Psychological History: Anxiety, Depression, PTSD Additional Psychological History / Comment(s): Several suicide attempts with use of insulin. PTSD - in 2000 his 3mo old son in his arms (born 2 months premature). Pt states his depression is stable at this time and he denies any suicidal thoughts or plans. He is independent. currently doing rehab at [facility]. Pt drives and he is independent at home. Smoking Status: Never smoker Past Alcohol Use History: None Reported Additional Past Alcohol Use History / Comment(s): Past alcohol abuse - pt states he quit drinking 7yrs ago. Past Drug Use History: None Reported Additional Drug Use History / Comment(s): Pt has smoked marijuana in the past - last smoked in 1999. - Past Family History Mother Family Medical History: Coronary Artery Disease (CAD), Myocardial Infarction (VT ) Additional Family Medical History / Comment(s): 7 VT and faulty heart valve. Pt does not know the age when mother had her VT's. Father History Unknown: Yes Additional Family Medical History / Comment(s): Does not know who father is. Brother(s) Family Medical History: Cancer, Congestive Heart Failure (CHF), Myocardial Infarction (VT) Additional Family Medical History / Comment(s): Parkinsons. Pt does not know at what age his brother had an VT. Patient's other brother has lung CA Patient has Family Medical History: No Reported History Additional Family Medical History / Comment(s): There is a strong family history for heart disease, hypertension, and diabetes. Medications and Allergies Home Medications Medication Instructions Recorded Confirmed Type Aspirin 81 mg PO DAILY chew 07/27/17 12/30/17 Rx Gabapentin [Neurontin] 400 mg PO TID cap 07/27/17 12/30/17 Rx Nitroglycerin Sl Tabs [Nitrostat] 0.4 mg SUBLINGUAL Q5M PRN tab 07/27/17 Rx ARIPiprazole [ARIPiprazole Odt] 15 mg PO HS 10/27/17 12/30/17 History Clopidogrel [Plavix] 75 mg PO HS 12/03/17 12/30/17 History Ferrous Sulfate [Iron (65 MG 325 mg PO BID 12/03/17 12/30/17 History Elemental)] Lisinopril [Zestril] 5 mg PO DAILY 12/03/17 12/30/17 History Metoprolol Succinate [Toprol XL] 25 mg PO DAILY 12/03/17 12/30/17 History Primidone [Mysoline] 500 mg PO BID 12/03/17 12/30/17 History Sertraline [Zoloft] 200 mg PO DAILY 12/05/17 12/30/17 History Insulin Aspart [NovoLOG 5 unit SQ AC-TID vial 12/18/17 12/30/17 Rx (formulary)] Insulin Detemir [Levemir] 20 unit SQ HS syr 12/18/17 12/30/17 Rx Midodrine [ProAmatine] 5 mg PO AC-TID tab 12/18/17 12/30/17 Rx Sennosides [Senokot] 8.6 mg PO BID PRN tab 12/18/17 12/30/17 Rx Insulin Aspart [NovoLOG See Protocol SQ ACHS 12/21/17 12/30/17 History (formulary)] Omeprazole [PriLOSEC] 20 mg PO AC-BID #30 cap 12/21/17 12/30/17 Rx Furosemide 40 mg PO DIRECTED 12/30/17 12/30/17 History Furosemide [Lasix] 40 mg PO DIRECTED 12/30/17 12/30/17 History Ondansetron [Zofran] 4 mg PO Q8HR PRN 12/30/17 12/30/17 History Rosuvastatin [Crestor] 20 mg PO HS 12/30/17 12/30/17 History Vancomycin 1,500 mg IVPB HS 12/30/17 12/30/17 History traMADol HCl [Ultram] 50 mg PO QID PRN 12/30/17 12/30/17 History Allergies Allergy/AdvReac Type Severity Reaction Status Date / Time erythromycin base Allergy Severe Rash/Hives Verified 12/30/17 19:50 [Erythromycin Base] cephalexin monohydrate Allergy Unknown Rash/Hives Verified 12/30/17 19:50 [From Keflex] codeine Allergy Unknown Unknown Verified 12/30/17 19:50 meclizine Allergy Unknown Unknown Verified 12/30/17 19:50 Penicillins Allergy Unknown Rash/Hives Verified 12/30/17 19:50 shellfish derived Allergy Unknown Anaphylaxis Verified 12/30/17 19:50 Fish Containing Products Allergy Anaphylaxis Verified 12/30/17 19:50 [Fish] Iodinated Contrast- Oral and Allergy Anaphylaxis Verified 12/30/17 19:50 IV Dye naproxen AdvReac Unknown Compromises Verified 12/30/17 19:50 Kidney Function atorvastatin calcium AdvReac Myalgia Verified 12/30/17 19:50 [From Lipitor] hydrocodone [From [place]] AdvReac Rapid Verified 12/30/17 19:50 Heart Rate Physical Exam Vitals: Vital Signs Temp Pulse Pulse Resp BP BP Pulse Ox 12/31/17 08:32 97.7 F 102 H 18 129/83 99 12/31/17 08:30 102 H 18 12/31/17 04:00 99.1 F 88 18 104/71 100 12/31/17 00:00 98.9 F 96 20 109/68 99 12/30/17 22:51 97 22 146/91 99 12/30/17 22:50 98.9 F 95 20 109/68 99 12/30/17 21:00 97 16 125/75 99 12/30/17 20:39 100 20 120/79 100 12/30/17 18:54 26 H 12/30/17 18:40 97.9 F 107 H 26 H 125/92 100 Intake and Output 12/30/17 12/31/17 12/31/17 22:59 06:59 14:59 Intake Total 350 Output Total 3050 Balance -2700 Intake: Intake, IV Titration 350 Amount Levofloxacin 500Mg-D5w 100 Pmx 500 mg In Dextrose/ Water 1 100ml.bag @ 100 mls/hr IVPB Q24H [facility] Rx#: [id number] Vancomycin 1,500 mg In 250 Sodium Chloride 0.9% 250 ml @ 125 mls/hr IVPB Q24H [facility] Rx#:[id number] Oral 0 Output: Urine 3050 Other: Voiding Method Indwelling Catheter Indwelling Catheter Weight 113.398 kg 106 kg PHYSICAL EXAMINATION: GENERAL: 42-year-old gentleman in no acute distress at the time of my examination. HEENT: Head is atraumatic, normocephalic. Pupils equal, round. Sclera anicteric. Conjunctiva are clear. Mucous membranes of the mouth are moist. Neck is supple. There is elevated jugular venous pressure. No carotid bruit is heard. HEART EXAMINATION: Heart S1, S2 normal. No murmur or gallop heard. CHEST EXAMINATION: Lungs reveal crackles bilaterally to the bases with diminished air entry to the bases. ABDOMEN: Soft, obese, nontender. Bowel sounds are heard. No organomegaly noted. EXTREMITIES:[ 2+ peripheral pulses with 2+ evidence of peripheral edema, evidence of bilateral ear erythema and possible cellulitis. There is a dressing in place to the left calf area. NEUROLOGIC patient is awake, alert and oriented X3 . Results 12/31/17 08:08 12/31/17 08:08 Cardiac Enzymes 12/30/17 12/30/17 12/31/17 Range/Units 20:35 20:35 01:48 AST 74 H (17-59) U/L CK-MB (CK-2) 1.2 1.5 (0.0-2.4) ng/mL Troponin I 0.076 H* 0.092 H* (0.000-0.034) ng/mL 12/31/17 Range/Units 08:08 AST (17-59) U/L CK-MB (CK-2) 1.6 (0.0-2.4) ng/mL Troponin I 0.075 H* (0.000-0.034) ng/mL Coagulation 12/30/17 Range/Units 20:35 PT 11.4 (9.0-12.0) sec APTT 21.1 L (22.0-30.0) sec Lipids 12/31/17 Range/Units 08:08 Triglycerides 114 (<150) mg/dL Cholesterol 103 (<200) mg/dL HDL Cholesterol 38 L (40-60) mg/dL CBC 12/30/17 12/31/17 Range/Units 20:35 08:08 WBC 5.6 5.8 (3.8-10.6) k/uL RBC 4.28 L 4.18 L (4.30-5.90) m/uL Hgb 11.0 L 11.2 L (13.0-17.5) gm/dL Hct 37.3 L 37.3 L (39.0-53.0) % Plt Count 258 247 (150-450) k/uL Comprehensive Metabolic Panel 12/30/17 12/31/17 Range/Units 20:35 08:08 Sodium 137 137 (137-145) mmol/L Potassium 4.3 4.8 (3.5-5.1) mmol/L Chloride 105 104 (98-107) mmol/L Carbon Dioxide 26 25 (22-30) mmol/L BUN 25 H 21 H (9-20) mg/dL Creatinine 1.00 0.85 (0.66-1.25) mg/dL Glucose 57 L 78 (74-99) mg/dL Calcium 8.5 8.4 (8.4-10.2) mg/dL AST 74 H (17-59) U/L ALT 82 H (21-72) U/L Alkaline Phosphatase 374 H (38-126) U/L Total Protein 5.2 L (6.3-8.2) g/dL Albumin 2.7 L (3.5-5.0) g/dL Current Medications Generic Name Dose Route Start Last Admin Trade Name Freq PRN Reason Stop Dose Admin Aripiprazole 15 mg 12/31/17 21:00 Abilify PO HS JAKE Aspirin 325 mg 12/31/17 09:00 12/31/17 08:39 Aspirin PO 325 mg DAILY [facility] Administration Atorvastatin Calcium 20 mg 12/31/17 21:00 Lipitor PO HS JAKE Clopidogrel Bisulfate 75 mg 12/31/17 21:00 Plavix PO HS JAKE Ferrous Sulfate 325 mg 12/31/17 09:00 12/31/17 08:40 Feosol PO 325 mg BID JAKE Administration Gabapentin 400 mg 12/31/17 09:00 12/31/17 08:40 Neurontin PO 400 mg TID [facility] Administration Heparin Sodium (Porcine) 5,000 unit 12/31/17 09:00 12/31/17 08:39 Heparin SQ 5,000 unit Q12HR [facility]KE Administration Vancomycin HCl 1,500 mg/ 250 mls @ 125 mls/hr 12/30/17 23:00 12/31/17 00:18 Sodium Chloride IVPB 125 mls/hr Q24H [facility] Administration Levofloxacin 500 mg/ IV 100 mls @ 100 mls/hr 12/31/17 00:00 12/31/17 00:40 Solution IVPB 100 mls/hr Q24H [facility] Administration Insulin Aspart 5 unit 12/31/17 07:30 12/31/17 05:59 Novolog SQ Not Given AC-TID [facility] Insulin Detemir 20 unit 12/31/17 21:00 Levemir SQ [facility] Lisinopril 5 mg 12/31/17 09:00 12/31/17 08:39 Zestril PO 5 mg DAILY [facility] Administration Metoprolol Succinate 25 mg 12/31/17 09:00 12/31/17 08:40 Toprol Xl PO 25 mg DAILY [facility] Administration Midodrine 5 mg 12/31/17 07:30 12/31/17 06:30 Proamatine PO 5 mg AC-TID [facility] Administration Nitroglycerin 0.4 mg 12/30/17 22:07 Nitrostat SUBLINGUAL Q5M PRN Chest Pain Nitroglycerin 0.4 mg 12/30/17 22:23 Nitrostat SUBLINGUAL Q5M PRN Chest Pain Ondansetron HCl 4 mg 12/30/17 22:23 Zofran PO Q8HR PRN Nausea Pantoprazole Sodium 20 mg 12/31/17 07:30 12/31/17 06:30 Protonix PO 20 mg AC-BID [facility] Administration Primidone 500 mg 12/31/17 09:00 12/31/17 08:39 Mysoline PO 500 mg BID [facility] Administration Senna 8.6 mg 12/30/17 22:23 Senokot PO BID PRN Constipation Sertraline HCl 200 mg 12/31/17 09:00 12/31/17 08:40 Zoloft PO 200 mg DAILY [facility] Administration Tramadol HCl 50 mg 12/30/17 22:23 Ultram PO QID PRN Pain Intake and Output 12/30/17 12/31/17 12/31/17 22:59 06:59 14:59 Intake Total 350 Output Total 3050 Balance -2700 Intake: Intake, IV Titration 350 Amount Levofloxacin 500Mg-D5w 100 Pmx 500 mg In Dextrose/ Water 1 100ml.bag @ 100 mls/hr IVPB Q24H [facility] Rx#: [id number] Vancomycin 1,500 mg In 250 Sodium Chloride 0.9% 250 ml @ 125 mls/hr IVPB Q24H [facility] Rx#:[id number] Oral 0 Output: Urine 3050 Other: Voiding Method Indwelling Catheter Indwelling Catheter Weight 113.398 kg 106 kg 12/31/17 08:08 12/31/17 08:08 EKG Interpretations (text) EKG shows ventricular paced rhythm with underlying normal sinus rhythm. Assessment and Plan Plan: Assessment and plan #1 systolic congestive heart failure acute on chronic #2 known history of coronary artery disease with multiple stent placements #3 ischemic cardiomyopathy with prior IV AICD #4 hypertension #5 hyperlipidemia #6 prior TIA #7 sleep apnea #8 MRSA of the lower extremities Plan Patient just recently had an echocardiogram with Doppler study performed last month which revealed an ejection fraction of 20-25%. We will not repeat an echo on this admission. We will discontinue the IV Lasix and start the patient on IV Lasix drip. 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 Peres. This is for the patient follows, they are quite familiar with the patient's case. We will decrease his aspirin to 81 mg daily, continue lisinopril, metoprolol, add Aldactone to his medication regime. Continue to monitor intake and output along with daily weights and daily lytes BUN and creatinine. DNP note has been reviewed, I agree with a documented findings and plan of care. Patient was seen and examined.
[2017-12-31] MEDS ORDERED: FUROSEMIDE 10 MG/ML 4 ML VIAL IV SCH (10:00)
[2017-12-31 12:03] LABS: Glucose,Whole Blood 162 mg/dL (75-99)
[2017-12-31] MEDS: FUROSEMIDE 250 MG in SODIUM CHLORIDE 0.9% 225 ML IVP SCH (13:49)
--- NOTE | 2017-12-31 14:24 | P.PN ---
Subjective Progress Note Date: 12/31/17 Progress note being dictated for Dr. Clay. Interval history: This is a 42-year-old gentleman admitted with acute CHF exacerbation, bilateral leg cellulitis, elevated LFTs, elevated troponin and multiple other medical issues. Maintaining O2 sats of high 90s on 2 L nasal cannula. Telemetry reporting paced rhythm. Recent echo of last month reporting EF of 20-25%. Troponins 0.076, 0.092, 0.075. Evaluated by cardiology, recommendations noted. Diuresing on Lasix drip. Renal function improving. Minimal ambulation,currently tolerates ambulating to and from bathroom with walker. Reports minimal nonproductive cough. Denies chest pain, palpitations. Blood sugars controlled. Family reports patient had urinary retention at [facility], oconnell catheter had been placed in the ER. Urine culture pending. No vomiting, no diarrhea. Objective - Vital Signs Vital signs: Vital Signs Temp 97.7 F 12/31/17 08:32 Pulse 98 12/31/17 11:43 Resp 18 12/31/17 11:43 BP 98/68 12/31/17 11:43 Pulse Ox 95 12/31/17 11:43 Intake & Output 12/30/17 12/31/17 12/31/17 18:59 06:59 18:59 Intake Total 350 Output Total 3050 Balance -2700 Weight 113.398 kg 106 kg Intake: Intake, IV Titration 350 Amount Levofloxacin 500Mg-D5w 100 Pmx 500 mg In Dextrose/ Water 1 100ml.bag @ 100 mls/hr IVPB Q24H [facility] Rx#: [id number] Vancomycin 1,500 mg In 250 Sodium Chloride 0.9% 250 ml @ 125 mls/hr IVPB Q24H [facility] Rx#:[id number] Oral 0 Output: Urine 3050 Other: Voiding Method Indwelling Catheter Indwelling Catheter - Exam PHYSICAL EXAM: VITAL SIGNS: As above GENERAL: Sitting up in bed, respiratory effort minimally increased with conversing HEENT: Conjunctivae normal. eyes normal. Oral mucosa moist NECK: Positive JVD. No thyroid enlargement. No LNs CARDIOVASCULAR: S1, S2 muffled. Positive systolic murmur RESPIRATION: Breath sounds diminished in the bases. Occasional scattered rhonchi, Bibasilar crackles ABDOMEN: Soft, nontender . No guarding. no masses palpable.Bowel sounds heard. LEGS: Positive edema, cellulitis, erythema of bilateral legs, left greater than right PSYCHIATRY: Alert and oriented -3, mood and affect normal. NERVOUS SYSTEM: Cranial N 2-12 grossly normal. Moves all 4 limbs. Diffuse weakness ,No focal deficits. Lymphatic system. No LN neck axilla or groin. - Labs CBC & Chem 7: 12/31/17 08:08 12/31/17 08:08 Labs: Abnormal Lab Results - Last 24 Hours (Table) 12/30/17 12/30/17 12/30/17 Range/Units 20:35 20:35 20:35 RBC 4.28 L (4.30-5.90) m/uL Hgb 11.0 L (13.0-17.5) gm/dL Hct 37.3 L (39.0-53.0) % MCHC 29.6 L (31.0-37.0) g/dL RDW 21.8 H (11.5-15.5) % INR 1.2 H (<1.2) APTT 21.1 L (22.0-30.0) sec VBG pH 7.49 H (7.31-7.41) VBG pCO2 31 L (37-51) mmHg VBG HCO3 23 L (24-28) mmol/L BUN (9-20) mg/dL Glucose (74-99) mg/dL POC Glucose (mg/dL) (75-99) mg/dL AST (17-59) U/L ALT (21-72) U/L Alkaline Phosphatase (38-126) U/L Total Creatine Kinase (55-170) U/L Troponin I (0.000-0.034) ng/mL Total Protein (6.3-8.2) g/dL Albumin (3.5-5.0) g/dL HDL Cholesterol (40-60) mg/dL 12/30/17 12/30/17 12/31/17 Range/Units 20:35 20:35 01:48 RBC (4.30-5.90) m/uL Hgb (13.0-17.5) gm/dL Hct (39.0-53.0) % MCHC (31.0-37.0) g/dL RDW (11.5-15.5) % INR (<1.2) APTT (22.0-30.0) sec VBG pH (7.31-7.41) VBG pCO2 (37-51) mmHg VBG HCO3 (24-28) mmol/L BUN 25 H (9-20) mg/dL Glucose 57 L (74-99) mg/dL POC Glucose (mg/dL) (75-99) mg/dL AST 74 H (17-59) U/L ALT 82 H (21-72) U/L Alkaline Phosphatase 374 H (38-126) U/L Total Creatine Kinase 50 L 47 L (55-170) U/L Troponin I 0.076 H* 0.092 H* (0.000-0.034) ng/mL Total Protein 5.2 L (6.3-8.2) g/dL Albumin 2.7 L (3.5-5.0) g/dL HDL Cholesterol (40-60) mg/dL 12/31/17 12/31/17 12/31/17 Range/Units 03:33 08:08 08:08 RBC (4.30-5.90) m/uL Hgb (13.0-17.5) gm/dL Hct (39.0-53.0) % MCHC (31.0-37.0) g/dL RDW (11.5-15.5) % INR (<1.2) APTT (22.0-30.0) sec VBG pH (7.31-7.41) VBG pCO2 (37-51) mmHg VBG HCO3 (24-28) mmol/L BUN 21 H (9-20) mg/dL Glucose (74-99) mg/dL POC Glucose (mg/dL) 109 H (75-99) mg/dL AST (17-59) U/L ALT (21-72) U/L Alkaline Phosphatase (38-126) U/L Total Creatine Kinase 39 L (55-170) U/L Troponin I 0.075 H* (0.000-0.034) ng/mL Total Protein (6.3-8.2) g/dL Albumin (3.5-5.0) g/dL HDL Cholesterol 38 L (40-60) mg/dL 18 12/31/17 Range/Units 08:08 12:01 RBC 4.18 L (4.30-5.90) m/uL Hgb 11.2 L (13.0-17.5) gm/dL Hct 37.3 L (39.0-53.0) % MCHC 30.2 L (31.0-37.0) g/dL RDW 21.8 H (11.5-15.5) % INR (<1.2) APTT (22.0-30.0) sec VBG pH (7.31-7.41) VBG pCO2 (37-51) mmHg VBG HCO3 (24-28) mmol/L BUN (9-20) mg/dL Glucose (74-99) mg/dL POC Glucose (mg/dL) 162 H (75-99) mg/dL AST (17-59) U/L ALT (21-72) U/L Alkaline Phosphatase (38-126) U/L Total Creatine Kinase (55-170) U/L Troponin I (0.000-0.034) ng/mL Total Protein (6.3-8.2) g/dL Albumin (3.5-5.0) g/dL HDL Cholesterol (40-60) mg/dL Microbiology - Last 24 Hours (Table) 12/30/17 21:30 Urine Culture - Preliminary Urine,Catheterized Assessment and Plan Assessment: 1. Acute on chronic congestive heart failure, systolic dysfunction, EF 20-25% 2. Ischemic cardiomyopathy with history of AICD 3. CAD, history of MS, stents 4. Bilateral leg cellulitis, history of MRSA 5. Possible hepatitis, congestive hepatopathy secondary to CHF 6. Troponin 0.076, indeterminate 7. Diabetes mellitus type 2 8. Gastroesophageal reflux disease 9. Anxiety, depression, posttraumatic stress disorder Plan: Continue on current medication regime , empiric antibiotics, aspirin, ROWAN inhibitor, beta ravinder, monitoring and symptomatic treatment. Maintain diuresing on Lasix drip. Close monitoring of renal function, electrolytes. Urine culture pending. PT/OT. Prognosis guarded given multiple complex medical issues. The impression and plan of care has been dictated as directed. : I performed a history and examination of this patient, discussed the same with the dictator. I agree with the dictator's note ,documented as a scribe. Any additional findings or plans will be noted.
[2017-12-31 17:04] LABS: Glucose,Whole Blood 142 mg/dL (75-99)
[2017-12-31 20:31] LABS: Glucose,Whole Blood 109 mg/dL (75-99)
[2017-12-31] MEDS: traMADol 50 MG TAB PO PRN (20:34)
[2017-12-31] MEDS: ARIPiprazole 15 MG TAB PO SCH (20:35)
[2017-12-31] MEDS: CLOPIDOGREL 75 MG TAB PO SCH (20:35)
[2017-12-31] MEDS: ATORVASTATIN 40 MG TAB PO SCH (20:35)
[2017-12-31] MEDS ORDERED: VANCOMYCIN 1,000 MG VIAL IVPB SCH (21:00)
[2017-12-31] MEDS ORDERED: INSULIN DETEMIR 100 UNIT/ML 10 ML VIAL SQ SCH (21:00)
[2017-12-31] MEDS ORDERED: VANCOMYCIN TROUGH DUE 1 EACH MISC MISCELLANE ONE (22:00)
--- NOTE | 2017-12-31 22:17 | P.CONS ---
History of Present Illness - Reason for Consult Consult date: 12/31/17 - Chief Complaint Shortness of breath - History of Present Illness 42 year old male who was admitted to [facility] from the extended care facility with progressive shortness of breath, it became severe enough that he was short of breath at rest and with any activity and constantly was transported emergency center. X-rays reveal evidence of congestive heart failure was also concerns for pneumonia. During his last admission he had been transferred from an outside hospital where he had been treated for bacteremia concerns to infection of his AICD. He is being treated with daptomycin therapy but he then developed pneumonia. Antibiotic therapy was altered to vancomycin and appears he has therapy to continue over the next several weeks. The patient has been placed on a furosemide drip and he has had significant urinary output which is starting to help his shortness of breath over the last few hours. He is denying fevers or chills and relates when he is lying in bed with his head propped up he is much less short of breath than he was 24 hours ago. Denies any new discomforts with feels quite poorly overall. He does relate he's been through a lot and sometimes wonder if he can keep going on. Review of Systems HEENT:Denies headache or acute visual change. Denies sinus or mouth discomforts. Denies neck stiffness or pain. Denies significant oral cavity pain. Denies difficulty on swallowing. Lungs: As per the HPI significant shortness of breath including orthopnea and dyspnea at rest but denies hemoptysis is only minimal cough without much sputum production Cardiovascular: As per the HPI significant dyspnea with exertion but no syncope is denying chest pain at this time denies pain at his pacemaker/AICD site Gastrointestinal:Denies nausea, vomiting, diarrhea, constipation, hematemesis, melena, hematochezia. No no significant change of bowel habit noticed. Musculoskeletal: denies significant myalgias or arthralgias. No new joint swelling. Denies new back pain. Skin: Denies new rash or lesions. No new ulcers or wounds are related.. Neuro: Denies headache or visual change. Denies any new onset weakness or difficulty with ambulation. Denies falls or seizures. Psychiatric: Chronic anxiety and depression Endocrine: Profound fatigue had weight gain as his fluid status became worse. Past Medical History Past Medical History: Asthma, Coronary Artery Disease (CAD), Chest Pain / Angina , Heart Failure, CVA/TIA, Diabetes Mellitus, GERD/Reflux, Hyperlipidemia, Hypertension, Myocardial Infarction (WA), Osteoarthritis (OA), Pneumonia, Skin Disorder, Sleep Apnea/CPAP/BIPAP Additional Past Medical History / Comment(s): multiple vessel CAD, ischemic cardiomyopathy, diabetic neuropathy bilateral hands and feet, hypertensive cardiovascular disease, SHELIA with no device, chronic gastritis, degenerative disc disease, chronic back pain, depression with hx of suicide attempts, gastroparesis, psoriasis, UTI, migraines, TIA, PUD, hiatal hernia, L rotator cuff tear, bronchitis, pseudoaneurysm L groin post procedure. 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 Date of Last Stent Placement:: 05/25/2017 Type of Cardiac Device: Biventricular Pacemaker, AICD Device Placement Date:: 09/19/15 Past Psychological History: Anxiety, Depression, PTSD Additional Psychological History / Comment(s): Several suicide attempts with use of insulin. PTSD - in 2000 his 3mo old son in his arms (born 2 months premature). Pt states his depression is stable at this time and he denies any suicidal thoughts or plans. He is independent. currently doing rehab at [facility]. Pt drives and he is independent at home. Smoking Status: Never smoker Past Alcohol Use History: None Reported Additional Past Alcohol Use History / Comment(s): Past alcohol abuse - pt states he quit drinking 7yrs ago. Past Drug Use History: None Reported Additional Drug Use History / Comment(s): Pt has smoked marijuana in the past - last smoked in 1999. - Past Family History Mother Family Medical History: Coronary Artery Disease (CAD), Myocardial Infarction (WA ) Additional Family Medical History / Comment(s): 7 WA and faulty heart valve. Pt does not know the age when mother had her WA's. Father History Unknown: Yes Additional Family Medical History / Comment(s): Does not know who father is. Brother(s) Family Medical History: Cancer, Congestive Heart Failure (CHF), Myocardial Infarction (WA) Additional Family Medical History / Comment(s): Parkinsons. Pt does not know at what age his brother had an WA. Patient's other brother has lung CA Patient has Family Medical History: No Reported History Additional Family Medical History / Comment(s): There is a strong family history for heart disease, hypertension, and diabetes. Medications and Allergies Home Medications and Allergies Comment(s): Current Medications Aripiprazole (Abilify) 15 mg PO HS [facility] Last Admin: 12/31/17 20:35 Dose: 15 mg Aspirin (Aspirin) 81 mg PO DAILY [facility] Atorvastatin Calcium (Lipitor) 20 mg PO [facility] Last Admin: 12/31/17 20:35 Dose: 20 mg Clopidogrel Bisulfate (Plavix) 75 mg PO [facility] Last Admin: 12/31/17 20:35 Dose: 75 mg Ferrous Sulfate (Feosol) 325 mg PO BID [facility] Last Admin: 12/31/17 20:35 Dose: 325 mg Gabapentin (Neurontin) 400 mg PO TID [facility] Last Admin: 12/31/17 20:34 Dose: 400 mg Heparin Sodium (Porcine) (Heparin) 5,000 unit SQ Q12HR [facility] Last Admin: 12/31/17 20:34 Dose: 5,000 unit Vancomycin HCl 1,500 mg/ (Sodium Chloride) 250 mls @ 125 mls/hr IVPB Q24H [facility] Last Admin: 12/31/17 00:18 Dose: 125 mls/hr Levofloxacin 500 mg/ IV (Solution) 100 mls @ 100 mls/hr IVPB Q24H [facility] Last Admin: 12/31/17 00:40 Dose: 100 mls/hr Furosemide 250 mg/ Sodium (Chloride) 250 mls @ 10 mls/hr IVP .Q24H [facility] Last Admin: 12/31/17 13:49 Dose: 10 mg/hr, 10 mls/hr Insulin Aspart (Novolog) 5 unit SQ AC-TID [facility] Last Admin: 12/31/17 17:47 Dose: 5 unit Insulin Detemir (Levemir) 20 unit SQ [facility] Last Admin: 12/31/17 20:34 Dose: 20 unit Lisinopril (Zestril) 5 mg PO DAILY [facility] Last Admin: 12/31/17 08:39 Dose: 5 mg Metoprolol Succinate (Toprol Xl) 25 mg PO DAILY [facility] Last Admin: 12/31/17 08:40 Dose: 25 mg Midodrine (Proamatine) 5 mg PO AC-TID [facility] Last Admin: 12/31/17 17:47 Dose: 5 mg Miscellaneous Information (Vancomycin Trough Due) 0 each MISCELLANE DIRECTED ONE Stop: 12/31/17 22:01 Nitroglycerin (Nitrostat) 0.4 mg SUBLINGUAL Q5M PRN PRN Reason: Chest Pain Ondansetron HCl (Zofran) 4 mg PO Q8HR PRN PRN Reason: Nausea Pantoprazole Sodium (Protonix) 20 mg PO AC-BID [facility] Last Admin: 12/31/17 17:46 Dose: 20 mg Primidone (Mysoline) 500 mg PO BID [facility] Last Admin: 12/31/17 20:35 Dose: 500 mg Senna (Senokot) 8.6 mg PO BID PRN PRN Reason: Constipation Sertraline HCl (Zoloft) 200 mg PO DAILY [facility] Last Admin: 12/31/17 08:40 Dose: 200 mg Spironolactone (Aldactone) 25 mg PO DAILY [facility] Tramadol HCl (Ultram) 50 mg PO QID PRN PRN Reason: Pain Last Admin: 12/31/17 20:34 Dose: 50 mg Home Medications Medication Instructions Recorded Confirmed Type Aspirin 81 mg PO DAILY chew 07/27/17 12/30/17 Rx Gabapentin [Neurontin] 400 mg PO TID cap 07/27/17 12/30/17 Rx Nitroglycerin Sl Tabs [Nitrostat] 0.4 mg SUBLINGUAL Q5M PRN tab 07/27/17 Rx ARIPiprazole [ARIPiprazole Odt] 15 mg PO HS 10/27/17 12/30/17 History Clopidogrel [Plavix] 75 mg PO HS 12/03/17 12/30/17 History Ferrous Sulfate [Iron (65 MG 325 mg PO BID 12/03/17 12/30/17 History Elemental)] Lisinopril [Zestril] 5 mg PO DAILY 12/03/17 12/30/17 History Metoprolol Succinate [Toprol XL] 25 mg PO DAILY 12/03/17 12/30/17 History Primidone [Mysoline] 500 mg PO BID 12/03/17 12/30/17 History Sertraline [Zoloft] 200 mg PO DAILY 12/05/17 12/30/17 History Insulin Aspart [NovoLOG 5 unit SQ AC-TID vial 12/18/17 12/30/17 Rx (formulary)] Insulin Detemir [Levemir] 20 unit SQ HS syr 12/18/17 12/30/17 Rx Midodrine [ProAmatine] 5 mg PO AC-TID tab 12/18/17 12/30/17 Rx Sennosides [Senokot] 8.6 mg PO BID PRN tab 12/18/17 12/30/17 Rx Insulin Aspart [NovoLOG See Protocol SQ ACHS 12/21/17 12/30/17 History (formulary)] Omeprazole [PriLOSEC] 20 mg PO AC-BID #30 cap 12/21/17 12/30/17 Rx Furosemide 40 mg PO DIRECTED 12/30/17 12/30/17 History Furosemide [Lasix] 40 mg PO DIRECTED 12/30/17 12/30/17 History Ondansetron [Zofran] 4 mg PO Q8HR PRN 12/30/17 12/30/17 History Rosuvastatin [Crestor] 20 mg PO HS 12/30/17 12/30/17 History Vancomycin 1,500 mg IVPB HS 12/30/17 12/30/17 History traMADol HCl [Ultram] 50 mg PO QID PRN 12/30/17 12/30/17 History Allergies Allergy/AdvReac Type Severity Reaction Status Date / Time erythromycin base Allergy Severe Rash/Hives Verified 12/30/17 19:50 [Erythromycin Base] cephalexin monohydrate Allergy Unknown Rash/Hives Verified 12/30/17 19:50 [From Keflex] codeine Allergy Unknown Unknown Verified 12/30/17 19:50 meclizine Allergy Unknown Unknown Verified 12/30/17 19:50 Penicillins Allergy Unknown Rash/Hives Verified 12/30/17 19:50 shellfish derived Allergy Unknown Anaphylaxis Verified 12/30/17 19:50 Fish Containing Products Allergy Anaphylaxis Verified 12/30/17 19:50 [Fish] Iodinated Contrast- Oral and Allergy Anaphylaxis Verified 12/30/17 19:50 IV Dye naproxen AdvReac Unknown Compromises Verified 12/30/17 19:50 Kidney Function atorvastatin calcium AdvReac Myalgia Verified 12/30/17 19:50 [From Lipitor] hydrocodone [From [place]] AdvReac Rapid Verified 12/30/17 19:50 Heart Rate Physical Exam Vitals: Vital Signs Temp Pulse Pulse Resp BP BP Pulse Ox 12/31/17 16:15 97.9 F 103 H 16 109/70 98 12/31/17 11:43 98 18 98/68 95 12/31/17 11:40 18 12/31/17 08:32 97.7 F 102 H 18 129/83 99 12/31/17 08:30 102 H 18 12/31/17 04:00 99.1 F 88 18 104/71 100 12/31/17 00:00 98.9 F 96 20 109/68 99 12/30/17 22:51 97 22 146/91 99 12/30/17 22:50 98.9 F 95 20 109/68 99 Intake and Output 12/31/17 12/31/17 12/31/17 06:59 14:59 22:59 Intake Total 350 1050 Output Total 3050 1450 Balance -2700 -400 Intake: Intake, IV Titration 350 50 Amount Furosemide 250 mg In 50 Sodium Chloride 0.9% 225 ml @ 10 MG/HR 10 mls/hr IVP .Q24H [facility] Rx#: [id number] Levofloxacin 500Mg-D5w 100 Pmx 500 mg In Dextrose/ Water 1 100ml.bag @ 100 mls/hr IVPB Q24H [facility] Rx#: [id number] Vancomycin 1,500 mg In 250 Sodium Chloride 0.9% 250 ml @ 125 mls/hr IVPB Q24H [facility] Rx#:[id number] Oral 0 1000 Output: Urine 3050 1450 Other: Voiding Method Indwelling Catheter Indwelling Catheter Indwelling Catheter Weight 106 kg 106 kg 42 year old male, chronically ill, complains of shortness of breath HEENT: Anicteric conjunctiva are pink and moist nasal mucosa grossly intact without significant lesions, there is no thrush. Neck: The neck is supple without significant lymphadenopathy or thyromegaly. Lungs: Symmetrical air entry is noted there are bibasilar crackles scattered expiratory wheezes no septic and dullness or egophony is noted Heart: Irregular with an audible S1 and S2 soft S4 There is no significant murmur click or rub, PMI was nondisplaced. Abdomen: Obese, Positive bowel sounds soft and nontender without palpable masses or organomegaly. There was no guarding or rebound. Extremities: The upper extremities have excellent pulses they are symmetric, no significant petechiae or telangiectasia. No splinter hemorrhages were noted. Lower extremities have distinct bilateral lower extremity edema is pitting to the thighs and there is minimal pitting also to the lower abdominal wall consistent with some anasarca. Neuro: Awake alert oriented to person place and time. There are no acute new gross focal sensory motor deficits. But does have some generalized weakness Results CBC & Chem 7: 12/31/17 08:08 12/31/17 08:08 Labs: Abnormal Lab Results - Last 24 Hours (Table) 12/31/17 12/31/17 12/31/17 Range/Units 01:48 03:33 08:08 RBC (4.30-5.90) m/uL Hgb (13.0-17.5) gm/dL Hct (39.0-53.0) % MCHC (31.0-37.0) g/dL RDW (11.5-15.5) % BUN (9-20) mg/dL POC Glucose (mg/dL) 109 H (75-99) mg/dL Total Creatine Kinase 47 L 39 L (55-170) U/L Troponin I 0.092 H* 0.075 H* (0.000-0.034) ng/mL HDL Cholesterol (40-60) mg/dL 12/31/17 12/31/17 12/31/17 Range/Units 08:08 08:08 12:01 RBC 4.18 L (4.30-5.90) m/uL Hgb 11.2 L (13.0-17.5) gm/dL Hct 37.3 L (39.0-53.0) % MCHC 30.2 L (31.0-37.0) g/dL RDW 21.8 H (11.5-15.5) % BUN 21 H (9-20) mg/dL POC Glucose (mg/dL) 162 H (75-99) mg/dL Total Creatine Kinase (55-170) U/L Troponin I (0.000-0.034) ng/mL HDL Cholesterol 38 L (40-60) mg/dL 12/31/17 12/31/17 Range/Units 17:01 20:30 RBC (4.30-5.90) m/uL Hgb (13.0-17.5) gm/dL Hct (39.0-53.0) % MCHC (31.0-37.0) g/dL RDW (11.5-15.5) % BUN (9-20) mg/dL POC Glucose (mg/dL) 142 H 109 H (75-99) mg/dL Total Creatine Kinase (55-170) U/L Troponin I (0.000-0.034) ng/mL HDL Cholesterol (40-60) mg/dL Microbiology - Last 24 Hours (Table) 12/30/17 21:30 Urine Culture - Preliminary Urine,Catheterized Laboratory Results WBC 5.8 k/uL (3.8-10.6) 12/31/17 08:08 RBC 4.18 m/uL (4.30-5.90) L 12/31/17 08:08 Hgb 11.2 gm/dL (13.0-17.5) L 12/31/17 08:08 Hct 37.3 % (39.0-53.0) L 12/31/17 08:08 MCV 89.1 fL (80.0-100.0) 12/31/17 08:08 MCH 26.9 pg (25.0-35.0) 12/31/17 08:08 MCHC 30.2 g/dL (31.0-37.0) L 12/31/17 08:08 RDW 21.8 % (11.5-15.5) H 12/31/17 08:08 Plt Count 247 k/uL (150-450) 12/31/17 08:08 Neutrophils % 65 % 12/31/17 08:08 Lymphocytes % 18 % 12/31/17 08:08 Monocytes % 6 % 12/31/17 08:08 Eosinophils % 8 % 12/31/17 08:08 Basophils % 1 % 12/31/17 08:08 Neutrophils # 3.8 k/uL (1.3-7.7) 12/31/17 08:08 Lymphocytes # 1.0 k/uL (1.0-4.8) 12/31/17 08:08 Monocytes # 0.4 k/uL (0-1.0) 12/31/17 08:08 Eosinophils # 0.5 k/uL (0-0.7) 12/31/17 08:08 Basophils # 0.0 k/uL (0-0.2) 12/31/17 08:08 Hypochromasia Marked 12/31/17 08:08 Poikilocytosis Slight 12/31/17 08:08 Anisocytosis Moderate 12/31/17 08:08 Microcytosis Slight 12/30/17 20:35 PT 11.4 sec (9.0-12.0) 12/30/17 20:35 INR 1.2 (<1.2) H 12/30/17 20:35 APTT 21.1 sec (22.0-30.0) L 12/30/17 20:35 VBG pH 7.49 (7.31-7.41) H 12/30/17 20:35 VBG pCO2 31 mmHg (37-51) L 12/30/17 20:35 VBG HCO3 23 mmol/L (24-28) L 12/30/17 20:35 Sodium 137 mmol/L (137-145) 12/31/17 08:08 Potassium 4.8 mmol/L (3.5-5.1) 12/31/17 08:08 Chloride 104 mmol/L (98-107) 12/31/17 08:08 Carbon Dioxide 25 mmol/L (22-30) 12/31/17 08:08 Anion Gap 8 mmol/L 12/31/17 08:08 BUN 21 mg/dL (9-20) H 12/31/17 08:08 Creatinine 0.85 mg/dL (0.66-1.25) 12/31/17 08:08 Est GFR (CKD-EPI)AfAm >90 (>60 ml/min/1.73 sqM) 12/31/17 08:08 Est GFR (CKD-EPI)NonAf >90 (>60 ml/min/1.73 sqM) 12/31/17 08:08 Glucose 78 mg/dL (74-99) 12/31/17 08:08 POC Glucose (mg/dL) 109 mg/dL (75-99) H 12/31/17 20:30 POC Glu Superintendent Job ID Savanah Willett Candy 12/31/17 20:30 Calcium 8.4 mg/dL (8.4-10.2) 12/31/17 08:08 Total Bilirubin 0.2 mg/dL (0.2-1.3) 12/30/17 20:35 AST 74 U/L (17-59) H 12/30/17 20:35 ALT 82 U/L (21-72) H 12/30/17 20:35 Alkaline Phosphatase 374 U/L (38-126) H 12/30/17 20:35 Total Creatine Kinase 39 U/L (55-170) L 12/31/17 08:08 CK-MB (CK-2) 1.6 ng/mL (0.0-2.4) 12/31/17 08:08 CK-MB (CK-2) Rel Index 4.1 12/31/17 08:08 Troponin I 0.075 ng/mL (0.000-0.034) H* 12/31/17 08:08 NT-Pro-B Natriuret Pep 7090 pg/mL 12/30/17 20:35 Total Protein 5.2 g/dL (6.3-8.2) L 12/30/17 20:35 Albumin 2.7 g/dL (3.5-5.0) L 12/30/17 20:35 Triglycerides 114 mg/dL (<150) 12/31/17 08:08 Cholesterol 103 mg/dL (<200) 12/31/17 08:08 LDL Cholesterol, Calc 42 mg/dL (0-99) 12/31/17 08:08 HDL Cholesterol 38 mg/dL (40-60) L 12/31/17 08:08 Urine Color Yellow 12/30/17 21:30 Urine Appearance Clear (Clear) 12/30/17 21:30 Urine pH 5.0 (5.0-8.0) 12/30/17 21:30 Ur Specific [place] 1.011 (1.001-1.035) 12/30/17 21:30 Urine Protein Negative (Negative) 12/30/17 21:30 Urine Glucose (UA) Negative (Negative) 12/30/17 21:30 Urine Ketones Negative (Negative) 12/30/17 21:30 Urine Blood Negative (Negative) 12/30/17 21:30 Urine Nitrite Negative (Negative) 12/30/17 21:30 Urine Bilirubin Negative (Negative) 12/30/17 21:30 Urine Urobilinogen <2.0 mg/dL (<2.0) 12/30/17 21:30 Ur Leukocyte Esterase Negative (Negative) 12/30/17 21:30 Microbiology 12/30/17 21:30 Urine,Catheterized Urine Culture - Preliminary Chest x-ray: image reviewed (Evidence of congestive heart failure with bibasilar effusion) Assessment and Plan (1) Acute on chronic systolic congestive heart failure, NYHA class 3 Current Visit: Yes Status: Acute Code(s): I50.23 - ACUTE ON CHRONIC SYSTOLIC (CONGESTIVE) HEART FAILURE SNOMED Code(s): 027472116 (2) Dyspnea Current Visit: Yes Status: Acute Code(s): R06.00 - DYSPNEA, UNSPECIFIED SNOMED Code(s): 927115917 (3) AICD (automatic cardioverter/defibrillator) present Current Visit: No Status: Acute Code(s): Z95.810 - PRESENCE OF AUTOMATIC ( IMPLANTABLE) CARDIAC DEFIBRILLATOR SNOMED Code(s): 244163277 (4) Gram-positive cocci bacteremia Narrative/Plan: 42-year-old male presents to hospital with progressive shortness of breath over several days and admission is evidence of congestive heart failure , indeterminate troponins, and evidence of the significant edema. With Lasix drip he is starting to feel somewhat better with some improvement of his shortness of breath. The chest x-ray is abnormal. Appears to be most likely congestive heart failure however levofloxacin as added pending further culture data. Has been seen by pulmonary critical care as well as cardiology. His vancomycin therapy will continue to complete the original course of therapy I believe ending 2017, the data from the outside hospital can be reviewed. Fortunately he has tolerated the vancomycin therapy very well with no evidence of any acute renal failure at this point in time. Cultures are currently pending and will further direct antibiotic therapy. The patient has no evidence of any urinary infection or significant skin infections at this time. Current Visit: Yes Status: Acute Code(s): R78.81 - BACTEREMIA SNOMED Code( s): 936197465302
[2018-01-01 05:42] LABS: Glucose,Whole Blood 58 mg/dL (75-99)
[2018-01-01] MEDS: MIDODRINE 5 MG TAB PO SCH ×3 (06:09→17:25)
[2018-01-01] MEDS: PANTOPRAZOLE 40 MG TABLET PO SCH ×2 (06:09→17:25)
[2018-01-01 06:10] LABS: Glucose,Whole Blood 74 mg/dL (75-99)
[2018-01-01 07:01] LABS: Anion Gap 9 mmol/L; Blood Urea Nitrogen 22 mg/dL (9-20); Calcium 8.3 mg/dL (8.4-10.2); Carbon Dioxide 22 mmol/L (22-30); Chloride 102 mmol/L (98-107); Glucose 52 mg/dL (74-99); Potassium 4.6 mmol/L (3.5-5.1); Sodium 133 mmol/L (137-145)
[2018-01-01 07:17] LABS: Anisocytosis Moderate; Basophils # (A) 0.1 k/uL (0-0.2); Basophils % (A) 1 %; Eosinophils # (A) 0.5 k/uL (0-0.7); Eosinophils % (A) 11 %; HCT 37.2 % (39.0-53.0); HGB 11.2 gm/dL (13.0-17.5); Hypochromasia Marked; Lymphocytes # (A) 1.2 k/uL (1.0-4.8); Lymphocytes % (A) 25 %; MCHC 30.1 g/dL (31.0-37.0); MCV 89.6 fL (80.0-100.0); Mean Platelet Volume 7.1; Monocytes # (A) 0.3 k/uL (0-1.0); Monocytes % (A) 7 %; Neutrophils # (A) 2.6 k/uL (1.3-7.7); Neutrophils % (A) 54 %; Platelet Count 211 k/uL (150-450); RBC 4.15 m/uL (4.30-5.90); RDW 21.6 % (11.5-15.5); WBC 4.9 k/uL (3.8-10.6)
[2018-01-01] MEDS: INSULIN ASPART 100 UNIT/ML 1 ML 10 ML VIAL SQ SCH ×3 (07:24→17:24)
[2018-01-01 08:21] LABS: Poikilocytosis (M) Present
[2018-01-01 08:22] LABS: Polychromasia Present
[2018-01-01] MEDS: PRIMIDONE 250 MG TAB PO SCH ×2 (08:34→21:39)
[2018-01-01] MEDS: HEPARIN SODIUM,PORCINE 5,000 UNIT/ML 1 ML VIAL SQ SCH ×2 (08:34→21:39)
[2018-01-01] MEDS: SERTRALINE 100 MG TAB PO SCH (08:34)
[2018-01-01] MEDS: GABAPENTIN 400 MG CAP PO SCH ×3 (08:35→21:39)
[2018-01-01] MEDS: FERROUS SULFATE 325 MG TAB PO SCH ×2 (08:35→21:39)
[2018-01-01] MEDS: SPIRONOLACTONE 25 MG TAB PO SCH (08:35)
[2018-01-01] MEDS: ASPIRIN 81 MG PO SCH (08:35)
[2018-01-01] MEDS: LISINOPRIL 5 MG TAB PO SCH (08:35)
[2018-01-01] MEDS: METOPROLOL SUCCINATE (ER) 25 MG TAB.ER.24H PO SCH (09:02)
[2018-01-01] MEDS: FUROSEMIDE 250 MG in SODIUM CHLORIDE 0.9% 225 ML IVP SCH (09:02)
[2018-01-01 11:53] LABS: Glucose,Whole Blood 101 mg/dL (75-99)
--- NOTE | 2018-01-01 12:13 | P.PN ---
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 He has had several readmissions to the hospital, most recently he was discharged from the hospital on the fifth of this month. Patient presents back to the hospital on this occasion with symptoms of progressively worsening shortness of breath with associated peripheral edema and weight gain. Chest x-ray on admission revealed mild congestive heart failure with bilateral pleural effusions. EKG shows a paced rhythm with underlying sinus tachycardia. Most recent echocardiogram with Doppler study was performed in November of this year which revealed an ejection fraction of 20-25% . According to the patient, he has been taking all his medications as prescribed, states that he has been restricting his fluids and not eating salt. Blood pressure this morning 128/80, heart rate in the 90s. Temperature 97.7 degrees 99% on 2 L of oxygen. White blood cell count 5.8, hemoglobin 11.2, platelet count 247. Sodium 137, potassium 4.8, BUN 21, creatinine 0.8. AST 74 , ALT 82, alk phos 274. BNP level 7090. Troponins 0.07, 0.09, 0.07. Of note, patient does have abnormality in his troponin consistently. Patient denies having any chest discomfort. 01/01/2018 Patient was initiated on IV Lasix drip yesterday, diuresed well through the night last night, sodium 133 today, potassium 4.6, BUN 22, creatinine 0.8. Edema significantly improved. Patient still complains of feeling short of breath. Objective - Vital Signs Vital signs: Vital Signs Temp 97.7 F 01/01/18 08:25 Pulse 92 01/01/18 08:25 Resp 18 01/01/18 08:25 BP 103/75 01/01/18 08:25 Pulse Ox 99 01/01/18 08:25 Intake & Output 12/31/17 01/01/18 01/01/18 18:59 06:59 18:59 Intake Total 1050 410 432.167 Output Total 1450 3510 Balance -400 -3100 432.167 Weight 106 kg 120.4 kg Intake: Intake, IV Titration 50 410 192.167 Amount Furosemide 250 mg In 50 60 192.167 Sodium Chloride 0.9% 225 ml @ 10 MG/HR 10 mls/hr IVP .Q24H [facility] Rx#: [id number] Levofloxacin 500Mg-D5w 100 Pmx 500 mg In Dextrose/ Water 1 100ml.bag @ 100 mls/hr IVPB Q24H [facility] Rx#: [id number] Vancomycin 1,500 mg In 250 Sodium Chloride 0.9% 250 ml @ 125 mls/hr IVPB Q24H [facility] Rx#:[id number] Oral 1000 240 Output: Urine 1450 3510 Uretheral (Mtz) 2110 Other: Voiding Method Indwelling Catheter Indwelling Catheter Indwelling Catheter - Exam PHYSICAL EXAMINATION: GENERAL: 42-year-old gentleman in no acute distress at the time of my examination. HEENT: Head is atraumatic, normocephalic. Pupils equal, round. Sclera anicteric. Conjunctiva are clear. Mucous membranes of the mouth are moist. Neck is supple. There is elevated jugular venous pressure. No carotid bruit is heard. HEART EXAMINATION: Heart S1, S2 normal. No murmur or gallop heard. CHEST EXAMINATION: Lungs reveal crackles bilaterally to the bases with diminished air entry to the bases. ABDOMEN: Soft, obese, nontender. Bowel sounds are heard. No organomegaly noted. EXTREMITIES:[ 2+ peripheral pulses with 2+ evidence of peripheral edema, evidence of bilateral ear erythema and possible cellulitis. Bilateral Kwabena wrap dressings in place to lower extremities NEUROLOGIC patient is awake, alert and oriented X3 . - Labs CBC & Chem 7: 01/01/18 05:45 01/01/18 05:45 Labs: Abnormal Lab Results - Last 24 Hours (Table) 12/31/17 12/31/17 12/31/17 Range/Units 12:01 17:01 20:30 RBC (4.30-5.90) m/uL Hgb (13.0-17.5) gm/dL Hct (39.0-53.0) % MCHC (31.0-37.0) g/dL RDW (11.5-15.5) % Sodium (137-145) mmol/L BUN (9-20) mg/dL Glucose (74-99) mg/dL POC Glucose (mg/dL) 162 H 142 H 109 H (75-99) mg/dL Calcium (8.4-10.2) mg/dL 01/01/18 01/01/18 01/01/18 Range/Units 05:38 05:45 05:45 RBC 4.15 L (4.30-5.90) m/uL Hgb 11.2 L (13.0-17.5) gm/dL Hct 37.2 L (39.0-53.0) % MCHC 30.1 L (31.0-37.0) g/dL RDW 21.6 H (11.5-15.5) % Sodium 133 L (137-145) mmol/L BUN 22 H (9-20) mg/dL Glucose 52 L (74-99) mg/dL POC Glucose (mg/dL) 58 L (75-99) mg/dL Calcium 8.3 L (8.4-10.2) mg/dL 01/01/18 Range/Units 06:04 RBC (4.30-5.90) m/uL Hgb (13.0-17.5) gm/dL Hct (39.0-53.0) % MCHC (31.0-37.0) g/dL RDW (11.5-15.5) % Sodium (137-145) mmol/L BUN (9-20) mg/dL Glucose (74-99) mg/dL POC Glucose (mg/dL) 74 L (75-99) mg/dL Calcium (8.4-10.2) mg/dL Microbiology - Last 24 Hours (Table) 12/31/17 01:48 Blood Culture - Preliminary Blood No Growth after 24 hours 12/30/17 21:30 Urine Culture - Preliminary Urine,Catheterized Assessment and Plan Plan: Assessment and plan #1 systolic congestive heart failure acute on chronic #2 known history of coronary artery disease with multiple stent placements #3 ischemic cardiomyopathy with prior IV AICD #4 hypertension #5 hyperlipidemia #6 prior TIA #7 sleep apnea #8 MRSA of the lower extremities Plan Patient just recently had an echocardiogram with Doppler study performed last month which revealed an ejection fraction of 20-25%. We will not repeat an echo on this admission. We will continue the patient on current dose of IV Lasix drip. Add Aldactone 25 mg one tablet by mouth daily to the patient's medication regime. Continue to monitor intake and output along with daily weights and daily lytes BUN and creatinine. DNP note has been reviewed, I agree with a documented findings and plan of care. Patient was seen and examined.
[2018-01-01] MEDS: VANCOMYCIN 1,500 MG in SODIUM CHLORIDE 0.9% 250 ML IVPB SCH ×2 (12:39→21:47)
--- NOTE | 2018-01-01 15:20 | P.PN ---
Subjective Progress Note Date: 01/01/18 Progress note being dictated for Dr. Clay. Interval history: This is a 42-year-old gentleman admitted with acute CHF exacerbation, bilateral leg cellulitis, elevated LFTs, elevated troponin and multiple other medical issues. Maintaining O2 sats of high 90s on 2 L nasal cannula. Telemetry reporting paced rhythm. Recent echo of last month reporting EF of 20-25%. Troponins 0.076, 0.092, 0.075. Evaluated by cardiology, recommendations noted. Diuresing on Lasix drip. Renal function improving. Minimal ambulation,currently tolerates ambulating to and from bathroom with walker. Reports minimal nonproductive cough. Denies chest pain, palpitations. Blood sugars controlled. Family reports patient had urinary retention at [facility], oconnell catheter had been placed in the ER. Urine culture pending. No vomiting, no diarrhea. 01/01/18 diuresing well on Lasix IV drip with 24-hour I&O reflecting a negative fluid balance. Edema improving. Maintaining O2 sats in the high 90s on room air. Short of breath with minimal exertion.Denies chest pain, palpitations. Telemetry reporting dual paced. Currently completing his original course of IV antibiotic therapy for prior bacteremia-possible AICD infection maintained on vancomycin as per ID through 01/21/2018. afebrile, normal WBC, preliminary blood cultures negative. Hypoglycemic earlier this morning, continues to have good diet intake, consuming 100% with no nausea or vomiting. Objective - Vital Signs Vital signs: Vital Signs Temp 97.7 F 01/01/18 08:25 Pulse 92 01/01/18 11:15 Resp 16 01/01/18 11:15 BP 101/72 01/01/18 11:15 Pulse Ox 99 01/01/18 11:15 Intake & Output 12/31/17 01/01/18 01/01/18 18:59 06:59 18:59 Intake Total 1050 410 672.167 Output Total 1450 3510 875 Balance -400 3100 -202.833 Weight 106 kg 120.4 kg Intake: Intake, IV Titration 50 410 192.167 Amount Furosemide 250 mg In 50 60 192.167 Sodium Chloride 0.9% 225 ml @ 10 MG/HR 10 mls/hr IVP .Q24H [facility] Rx#: [id number] Levofloxacin 500Mg-D5w 100 Pmx 500 mg In Dextrose/ Water 1 100ml.bag @ 100 mls/hr IVPB Q24H [facility] Rx#: [id number] Vancomycin 1,500 mg In 250 Sodium Chloride 0.9% 250 ml @ 125 mls/hr IVPB Q24H [facility] Rx#:[id number] Oral 1000 480 Output: Urine 1450 3510 875 Uretheral (Oconnell) 2110 Other: Voiding Method Indwelling Catheter Indwelling Catheter Indwelling Catheter - Exam PHYSICAL EXAM: VITAL SIGNS: As above GENERAL: Sitting up in bed, no acute distress HEENT: Conjunctivae normal. eyes normal. Oral mucosa moist NECK: Positive JVD. No thyroid enlargement. No LNs CARDIOVASCULAR: S1, S2 muffled. Positive systolic murmur RESPIRATION: Breath sounds diminished in the bases. Occasional scattered rhonchi. ABDOMEN: Soft, nontender . No guarding. no masses palpable.Bowel sounds heard. LEGS: positive edema, bilateral leg cellulitis, Kwabena wrap clean dry and intact PSYCHIATRY: Alert and oriented -3, mood and affect normal. NERVOUS SYSTEM: Cranial N 2-12 grossly normal. Moves all 4 limbs. Diffuse weakness ,No focal deficits. - Labs CBC & Chem 7: 01/01/18 05:45 01/01/18 05:45 Labs: Abnormal Lab Results - Last 24 Hours (Table) 12/31/17 12/31/17 01/01/18 Range/Units 17:01 20:30 05:38 RBC (4.30-5.90) m/uL Hgb (13.0-17.5) gm/dL Hct (39.0-53.0) % MCHC (31.0-37.0) g/dL RDW (11.5-15.5) % Sodium (137-145) mmol/L BUN (9-20) mg/dL Glucose (74-99) mg/dL POC Glucose (mg/dL) 142 H 109 H 58 L (75-99) mg/dL Calcium (8.4-10.2) mg/dL 01/01/18 01/01/18 01/01/18 Range/Units 05:45 05:45 06:04 RBC 4.15 L (4.30-5.90) m/uL Hgb 11.2 L (13.0-17.5) gm/dL Hct 37.2 L (39.0-53.0) % MCHC 30.1 L (31.0-37.0) g/dL RDW 21.6 H (11.5-15.5) % Sodium 133 L (137-145) mmol/L BUN 22 H (9-20) mg/dL Glucose 52 L (74-99) mg/dL POC Glucose (mg/dL) 74 L (75-99) mg/dL Calcium 8.3 L (8.4-10.2) mg/dL 01/01/18 Range/Units 11:36 RBC (4.30-5.90) m/uL Hgb (13.0-17.5) gm/dL Hct (39.0-53.0) % MCHC (31.0-37.0) g/dL RDW (11.5-15.5) % Sodium (137-145) mmol/L BUN (9-20) mg/dL Glucose (74-99) mg/dL POC Glucose (mg/dL) 101 H (75-99) mg/dL Calcium (8.4-10.2) mg/dL Microbiology - Last 24 Hours (Table) 12/31/17 01:48 Blood Culture - Preliminary Blood No Growth after 24 hours 12/30/17 21:30 Urine Culture - Preliminary Urine,Catheterized Assessment and Plan Assessment: 1. Acute on chronic congestive heart failure, systolic dysfunction, EF 20-25% 2. Ischemic cardiomyopathy with history of AICD 3. CAD, history of MA, stents 4. Bilateral leg cellulitis, history of MRSA 5. Possible hepatitis, congestive hepatopathy secondary to CHF 6. Troponin 0.076, indeterminate 7. Diabetes mellitus type 2 8. Gastroesophageal reflux disease 9. Anxiety, depression, posttraumatic stress disorder Plan: Continue on current medication regime ,antibiotics, aspirin, KWABENA inhibitor , beta ravinder, monitoring and symptomatic treatment. PT/OT. Maintain diuresing on Lasix drip. Close monitoring of renal function, electrolytes. PT/OT. Levemir decreased as patient presenting with borderline hypoglycemia, despite good intake. Close monitoring of Accu-Cheks. Prognosis guarded given multiple complex medical issues. The impression and plan of care has been dictated as directed. : I performed a history and examination of this patient, discussed the same with the dictator. I agree with the dictator's note ,documented as a scribe. Any additional findings or plans will be noted.
[2018-01-01] MEDS: diphenhydrAMINE 25 MG CAP PO PRN ×2 (16:00→21:39)
[2018-01-01 16:37] LABS: Glucose,Whole Blood 240 mg/dL (75-99)
[2018-01-01 16:37] LABS: Glucose,Whole Blood 138 mg/dL (75-99)
--- NOTE | 2018-01-01 19:27 | P.PN ---
Subjective Progress Note Date: 01/01/18 42 year old male who was admitted to [facility] from the extended care facility with progressive shortness of breath, it became severe enough that he was short of breath at rest and with any activity and constantly was transported emergency center. X-rays reveal evidence of congestive heart failure was also concerns for pneumonia. During his last admission he had been transferred from an outside hospital where he had been treated for bacteremia concerns to infection of his AICD. He is being treated with daptomycin therapy but he then developed pneumonia. Antibiotic therapy was altered to vancomycin and appears he has therapy to continue over the next several weeks. The patient has been placed on a furosemide drip and he has had significant urinary output which is starting to help his shortness of breath over the last few hours. He is denying fevers or chills and relates when he is lying in bed with his head propped up he is much less short of breath than he was 24 hours ago. Denies any new discomforts with feels quite poorly overall. He does relate he's been through a lot and sometimes wonder if he can keep going on. 01/01/2018 patient is much more comfortable today. Sitting upright in the chair. He's had good urinary output with the Lasix drip. He is less short of breath. The still very fatigued. Denies chest pain at the moment. Denies other new symptoms. Objective - Vital Signs Vital signs: Vital Signs Temp 97.8 F 01/01/18 15:50 Pulse 84 01/01/18 15:50 Resp 12 01/01/18 15:50 BP 138/68 01/01/18 15:50 Pulse Ox 97 01/01/18 15:50 Intake & Output 01/01/18 01/01/18 01/02/18 06:59 18:59 06:59 Intake Total 410 2442.167 Output Total 3510 1650 Balance -3100 792.167 Weight 120.4 kg Intake: IV 80 Furosemide 250 mg In 80 Sodium Chloride 0.9% 225 ml @ 10 MG/HR 10 mls/hr IVP .Q24H [facility] Rx#: [id number] Intake, IV Titration 410 442.167 Amount Furosemide 250 mg In 60 192.167 Sodium Chloride 0.9% 225 ml @ 10 MG/HR 10 mls/hr IVP .Q24H [facility] Rx#: [id number] Levofloxacin 500Mg-D5w 100 Pmx 500 mg In Dextrose/ Water 1 100ml.bag @ 100 mls/hr IVPB Q24H [facility] Rx#: [id number] Vancomycin 1,500 mg In 250 Sodium Chloride 0.9% 250 ml @ 125 mls/hr IVPB Q12HR [facility] Rx#:[id number] Vancomycin 1,500 mg In 250 Sodium Chloride 0.9% 250 ml @ 125 mls/hr IVPB Q24H [facility] Rx#:[id number] Oral 1920 Output: Urine 3510 1650 Uretheral (Mtz) 2110 Other: Voiding Method Indwelling Catheter Indwelling Catheter - Exam 42 year old male, chronically ill, complains of shortness of breath HEENT: Anicteric conjunctiva are pink and moist nasal mucosa grossly intact without significant lesions, there is no thrush. Neck: The neck is supple without significant lymphadenopathy or thyromegaly. Lungs: Symmetrical air entry is noted there are bibasilar crackles scattered expiratory wheezes no septic and dullness or egophony is noted Heart: Irregular with an audible S1 and S2 soft S4 There is no significant murmur click or rub, PMI was nondisplaced. Abdomen: Obese, Positive bowel sounds soft and nontender without palpable masses or organomegaly. There was no guarding or rebound. Extremities: The upper extremities have excellent pulses they are symmetric, no significant petechiae or telangiectasia. No splinter hemorrhages were noted. Lower extremities have distinct bilateral lower extremity edema is pitting to the thighs and there is minimal pitting also to the lower abdominal wall consistent with some anasarca. Neuro: Awake alert oriented to person place and time. There are no acute new gross focal sensory motor deficits. But does have some generalized weakness - Labs CBC & Chem 7: 01/01/18 05:45 01/01/18 05:45 Labs: Abnormal Lab Results - Last 24 Hours (Table) 12/31/17 01/01/18 01/01/18 Range/Units 20:30 05:38 05:45 RBC 4.15 L (4.30-5.90) m/uL Hgb 11.2 L (13.0-17.5) gm/dL Hct 37.2 L (39.0-53.0) % MCHC 30.1 L (31.0-37.0) g/dL RDW 21.6 H (11.5-15.5) % Sodium (137-145) mmol/L BUN (9-20) mg/dL Glucose (74-99) mg/dL POC Glucose (mg/dL) 109 H 58 L (75-99) mg/dL Calcium (8.4-10.2) mg/dL 01/01/18 01/01/18 01/01/18 Range/Units 05:45 06:04 11:36 RBC (4.30-5.90) m/uL Hgb (13.0-17.5) gm/dL Hct (39.0-53.0) % MCHC (31.0-37.0) g/dL RDW (11.5-15.5) % Sodium 133 L (137-145) mmol/L BUN 22 H (9-20) mg/dL Glucose 52 L (74-99) mg/dL POC Glucose (mg/dL) 74 L 101 H (75-99) mg/dL Calcium 8.3 L (8.4-10.2) mg/dL 01/01/18 01/01/18 Range/Units 16:34 16:36 RBC (4.30-5.90) m/uL Hgb (13.0-17.5) gm/dL Hct (39.0-53.0) % MCHC (31.0-37.0) g/dL RDW (11.5-15.5) % Sodium (137-145) mmol/L BUN (9-20) mg/dL Glucose (74-99) mg/dL POC Glucose (mg/dL) 240 H 138 H (75-99) mg/dL Calcium (8.4-10.2) mg/dL Microbiology - Last 24 Hours (Table) 12/30/17 21:30 Urine Culture - Final Urine,Catheterized 12/31/17 01:48 Blood Culture - Preliminary Blood No Growth after 24 hours Laboratory Results WBC 4.9 k/uL (3.8-10.6) 01/01/18 05:45 RBC 4.15 m/uL (4.30-5.90) L 01/01/18 05:45 Hgb 11.2 gm/dL (13.0-17.5) L 01/01/18 05:45 Hct 37.2 % (39.0-53.0) L 01/01/18 05:45 MCV 89.6 fL (80.0-100.0) 01/01/18 05:45 MCH 27.0 pg (25.0-35.0) 01/01/18 05:45 MCHC 30.1 g/dL (31.0-37.0) L 01/01/18 05:45 RDW 21.6 % (11.5-15.5) H 01/01/18 05:45 Plt Count 211 k/uL (150-450) 01/01/18 05:45 Neutrophils % 54 % 01/01/18 05:45 Lymphocytes % 25 % 01/01/18 05:45 Monocytes % 7 % 01/01/18 05:45 Eosinophils % 11 % 01/01/18 05:45 Basophils % 1 % 01/01/18 05:45 Neutrophils # 2.6 k/uL (1.3-7.7) 01/01/18 05:45 Lymphocytes # 1.2 k/uL (1.0-4.8) 01/01/18 05:45 Monocytes # 0.3 k/uL (0-1.0) 01/01/18 05:45 Eosinophils # 0.5 k/uL (0-0.7) 01/01/18 05:45 Basophils # 0.1 k/uL (0-0.2) 01/01/18 05:45 Manual Slide Review Performed 01/01/18 05:45 Polychromasia Present 01/01/18 05:45 Hypochromasia Marked 01/01/18 05:45 Poikilocytosis Slight 12/31/17 08:08 Poikilocytosis (manual Present 01/01/18 05:45 Anisocytosis Moderate 01/01/18 05:45 Microcytosis Slight 12/30/17 20:35 PT 11.4 sec (9.0-12.0) 12/30/17 20:35 INR 1.2 (<1.2) H 12/30/17 20:35 APTT 21.1 sec (22.0-30.0) L 12/30/17 20:35 VBG pH 7.49 (7.31-7.41) H 12/30/17 20:35 VBG pCO2 31 mmHg (37-51) L 12/30/17 20:35 VBG HCO3 23 mmol/L (24-28) L 12/30/17 20:35 Sodium 133 mmol/L (137-145) L 01/01/18 05:45 Potassium 4.6 mmol/L (3.5-5.1) 01/01/18 05:45 Chloride 102 mmol/L (98-107) 01/01/18 05:45 Carbon Dioxide 22 mmol/L (22-30) 01/01/18 05:45 Anion Gap 9 mmol/L 01/01/18 05:45 BUN 22 mg/dL (9-20) H 01/01/18 05:45 Creatinine 0.80 mg/dL (0.66-1.25) 01/01/18 05:45 Est GFR (CKD-EPI)AfAm >90 (>60 ml/min/1.73 sqM) 01/01/18 05:45 Est GFR (CKD-EPI)NonAf >90 (>60 ml/min/1.73 sqM) 01/01/18 05:45 Glucose 52 mg/dL (74-99) L 01/01/18 05:45 POC Glucose (mg/dL) 138 mg/dL (75-99) H 01/01/18 16:36 POC Glu [employer] Tati Melgar 01/01/18 16:36 Calcium 8.3 mg/dL (8.4-10.2) L 01/01/18 05:45 Total Bilirubin 0.2 mg/dL (0.2-1.3) 12/30/17 20:35 AST 74 U/L (17-59) H 12/30/17 20:35 ALT 82 U/L (21-72) H 12/30/17 20:35 Alkaline Phosphatase 374 U/L (38-126) H 12/30/17 20:35 Total Creatine Kinase 39 U/L (55-170) L 12/31/17 08:08 CK-MB (CK-2) 1.6 ng/mL (0.0-2.4) 12/31/17 08:08 CK-MB (CK-2) Rel Index 4.1 12/31/17 08:08 Troponin I 0.075 ng/mL (0.000-0.034) H* 12/31/17 08:08 NT-Pro-B Natriuret Pep 7090 pg/mL 12/30/17 20:35 Total Protein 5.2 g/dL (6.3-8.2) L 12/30/17 20:35 Albumin 2.7 g/dL (3.5-5.0) L 12/30/17 20:35 Triglycerides 114 mg/dL (<150) 12/31/17 08:08 Cholesterol 103 mg/dL (<200) 12/31/17 08:08 LDL Cholesterol, Calc 42 mg/dL (0-99) 12/31/17 08:08 HDL Cholesterol 38 mg/dL (40-60) L 12/31/17 08:08 Urine Color Yellow 12/30/17 21:30 Urine Appearance Clear (Clear) 12/30/17 21:30 Urine pH 5.0 (5.0-8.0) 12/30/17 21:30 Ur Specific [place] 1.011 (1.001-1.035) 12/30/17 21:30 Urine Protein Negative (Negative) 12/30/17 21:30 Urine Glucose (UA) Negative (Negative) 12/30/17 21:30 Urine Ketones Negative (Negative) 12/30/17 21:30 Urine Blood Negative (Negative) 12/30/17 21:30 Urine Nitrite Negative (Negative) 12/30/17 21:30 Urine Bilirubin Negative (Negative) 12/30/17 21:30 Urine Urobilinogen <2.0 mg/dL (<2.0) 12/30/17 21:30 Ur Leukocyte Esterase Negative (Negative) 12/30/17 21:30 Vancomycin Trough 5.6 ug/mL 12/31/17 21:53 Microbiology 12/30/17 21:30 Urine,Catheterized Urine Culture - Final 12/31/17 01:48 Blood Blood Culture - Preliminary No Growth after 24 hours Assessment and Plan (1) Acute on chronic systolic congestive heart failure, NYHA class 3 Current Visit: Yes Status: Acute Code(s): I50.23 - ACUTE ON CHRONIC SYSTOLIC (CONGESTIVE) HEART FAILURE SNOMED Code(s): 892951165 (2) Dyspnea Current Visit: Yes Status: Acute Code(s): R06.00 - DYSPNEA, UNSPECIFIED SNOMED Code(s): 991450199 (3) AICD (automatic cardioverter/defibrillator) present Current Visit: No Status: Acute Code(s): Z95.810 - PRESENCE OF AUTOMATIC ( IMPLANTABLE) CARDIAC DEFIBRILLATOR SNOMED Code(s): 690702025 (4) Gram-positive cocci bacteremia Narrative/Plan: 42-year-old male presents to hospital with progressive shortness of breath over several days and admission is evidence of congestive heart failure , indeterminate troponins, and evidence of the significant edema. With Lasix drip he is starting to feel somewhat better with some improvement of his shortness of breath. The chest x-ray is abnormal. Appears to be most likely congestive heart failure however levofloxacin as added pending further culture data. Has been seen by pulmonary critical care as well as cardiology. His vancomycin therapy will continue to complete the original course of therapy I believe ending 2017, the data from the outside hospital can be reviewed. Fortunately he has tolerated the vancomycin therapy very well with no evidence of any acute renal failure at this point in time. Cultures are currently pending and will further direct antibiotic therapy. The patient has no evidence of any urinary infection or significant skin infections at this time. The patient's profound shortness of breath is improving with his diuresis. In his note is up in the chair and seems to be comfortable. He will complete his course of intravenous antibiotic therapy as scheduled. At this time no evidence of any ongoing bacteremia. Current Visit: Yes Status: Acute Code(s): R78.81 - BACTEREMIA SNOMED Code( s): 934018265214
[2018-01-01 20:45] LABS: Glucose,Whole Blood 123 mg/dL (75-99)
[2018-01-01] MEDS ORDERED: INSULIN DETEMIR 100 UNIT/ML 10 ML VIAL SQ SCH (21:00)
[2018-01-01] MEDS: traMADol 50 MG TAB PO PRN (21:38)
[2018-01-01] MEDS: ATORVASTATIN 40 MG TAB PO SCH (21:39)
[2018-01-01] MEDS: CLOPIDOGREL 75 MG TAB PO SCH (21:39)
[2018-01-01] MEDS: ARIPiprazole 15 MG TAB PO SCH (21:39)
[2018-01-02] MEDS: LEVOFLOXACIN 500MG-D5W PMX 500 MG in DEXTROSE/WATER 1 100ML.BAG IVPB SCH ×2 (00:02→23:52)
[2018-01-02 06:22] LABS: Glucose,Whole Blood 55 mg/dL (75-99)
[2018-01-02] MEDS: INSULIN ASPART 100 UNIT/ML 1 ML 10 ML VIAL SQ SCH ×4 (06:24→21:44)
[2018-01-02 06:28] LABS: Anisocytosis Moderate; Basophils % (A) 1 %; Eosinophils # (A) 0.6 k/uL (0-0.7); Eosinophils % (A) 12 %; HCT 36.8 % (39.0-53.0); HGB 11.1 gm/dL (13.0-17.5); Hypochromasia Marked; Lymphocytes # (A) 1.1 k/uL (1.0-4.8); Lymphocytes % (A) 23 %; MCH 26.7 pg (25.0-35.0); MCHC 30.1 g/dL (31.0-37.0); MCV 88.5 fL (80.0-100.0); Mean Platelet Volume 6.9; Monocytes # (A) 0.3 k/uL (0-1.0); Monocytes % (A) 6 %; Neutrophils # (A) 2.8 k/uL (1.3-7.7); Neutrophils % (A) 57 %; Platelet Count 254 k/uL (150-450); RBC 4.16 m/uL (4.30-5.90); RDW 21.6 % (11.5-15.5)
[2018-01-02] MEDS: PANTOPRAZOLE 40 MG TABLET PO SCH ×2 (06:33→17:01)
[2018-01-02] MEDS: MIDODRINE 5 MG TAB PO SCH ×3 (06:33→16:56)
[2018-01-02 06:35] LABS: Glucose,Whole Blood 65 mg/dL (75-99)
[2018-01-02 06:38] LABS: Anion Gap 7 mmol/L; Blood Urea Nitrogen 24 mg/dL (9-20); Calcium 8.6 mg/dL (8.4-10.2); Carbon Dioxide 32 mmol/L (22-30); Chloride 98 mmol/L (98-107); Glucose 64 mg/dL (74-99); Potassium 3.9 mmol/L (3.5-5.1); Sodium 137 mmol/L (137-145)
[2018-01-02 06:58] LABS: Glucose,Whole Blood 84 mg/dL (75-99)
[2018-01-02] MEDS: ASPIRIN 81 MG PO SCH (08:40)
[2018-01-02] MEDS: FERROUS SULFATE 325 MG TAB PO SCH ×2 (08:41→21:44)
[2018-01-02] MEDS: LISINOPRIL 5 MG TAB PO SCH (08:41)
[2018-01-02] MEDS: HEPARIN SODIUM,PORCINE 5,000 UNIT/ML 1 ML VIAL SQ SCH ×2 (08:41→21:44)
[2018-01-02] MEDS: METOPROLOL SUCCINATE (ER) 25 MG TAB.ER.24H PO SCH (08:41)
[2018-01-02] MEDS: GABAPENTIN 400 MG CAP PO SCH ×3 (08:41→21:43)
[2018-01-02] MEDS: PRIMIDONE 250 MG TAB PO SCH ×2 (08:41→21:44)
[2018-01-02] MEDS: SPIRONOLACTONE 25 MG TAB PO SCH (08:42)
[2018-01-02] MEDS: SERTRALINE 100 MG TAB PO SCH (08:42)
[2018-01-02] MEDS: VANCOMYCIN 1,500 MG in SODIUM CHLORIDE 0.9% 250 ML IVPB SCH ×2 (08:45→21:41)
[2018-01-02] MEDS: traMADol 50 MG TAB PO PRN ×3 (11:16→21:43)
[2018-01-02] MEDS: FUROSEMIDE 250 MG in SODIUM CHLORIDE 0.9% 225 ML IVP SCH (11:16)
[2018-01-02 11:24] LABS: Glucose,Whole Blood 174 mg/dL (75-99)
[2018-01-02] MEDS: MORPHINE SULFATE 2 MG/ML SYRINGE IVP PRN (12:43)
[2018-01-02 16:15] LABS: Glucose,Whole Blood 145 mg/dL (75-99)
[2018-01-02 17:22] LABS: Hemoglobin A1C 6.5 % (4.0-6.0)
--- NOTE | 2018-01-02 17:43 | PN ---
PROGRESS NOTE DATE OF SERVICE: 01/02/2018. This 42-year-old gentleman who was admitted with CHF exacerbation is being closely monitored. No chest pain. No palpitations. No fever. The patient complains of leg pain. EXAM: Alert and oriented x3. Pulse 89, blood pressure 113/80, respirations 18, temperature 97.8, pulse ox 94% on room air. HEENT: Conjunctivae normal. NECK: No jugular venous distention. CARDIOVASCULAR: S1, S2 muffled. RESPIRATORY: Breath sounds diminished in the bases. A few scattered rhonchi and crackles. ABDOMEN: Soft, nontender. LEGS: Edema present. NERVOUS SYSTEM: No focal deficits. LABS: WBC 11.1. ASSESSMENT: 1. Congestive heart failure acute exacerbation with acute on chronic systolic dysfunction, ejection fraction 20%-25%. 2. Ischemic cardiomyopathy with automatic implantable cardioverter-defibrillator. 3. History of coronary artery disease, history of myocardial infarction, stent. 4. History of bilateral leg cellulitis. 5. History of Methicillin-resistant Staphylococcus aureus. 6. 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 7. Troponin 0.072, indeterminate. 8. Diabetes mellitus type 2. 9. Gastroesophageal reflux disease. 10.Anxiety, depression, posttraumatic stress disorder. RECOMMENDATIONS AND DISCUSSION: Recommend to continue current medical management. Continue with monitoring and symptomatic treatment. Otherwise at this time, continue with IV diuretics. The patient is currently on Lasix drip at this time. Will continue with the antibiotics. Cultures are negative so far. Closely follow with Cardiology. Pain medications and symptomatic treatment. Guarded prognosis. Further recommendations to follow. MMODL / IJN: [id number] /
[2018-01-02 20:26] LABS: Glucose,Whole Blood 139 mg/dL (75-99)
[2018-01-02] MEDS: INSULIN DETEMIR 100 UNIT/ML 10 ML VIAL SQ SCH (21:43)
[2018-01-02] MEDS: diphenhydrAMINE 25 MG CAP PO PRN (21:43)
[2018-01-02] MEDS: CLOPIDOGREL 75 MG TAB PO SCH (21:44)
[2018-01-02] MEDS: ARIPiprazole 15 MG TAB PO SCH (21:44)
[2018-01-02] MEDS: ATORVASTATIN 20 MG TAB PO SCH (21:45)
--- NOTE | 2018-01-02 22:00 | P.PN ---
Subjective Progress Note Date: 01/02/18 42 year old male who was admitted to [facility] from the extended care facility with progressive shortness of breath, it became severe enough that he was short of breath at rest and with any activity and constantly was transported emergency center. X-rays reveal evidence of congestive heart failure was also concerns for pneumonia. During his last admission he had been transferred from an outside hospital where he had been treated for bacteremia concerns to infection of his AICD. He is being treated with daptomycin therapy but he then developed pneumonia. Antibiotic therapy was altered to vancomycin and appears he has therapy to continue over the next several weeks. The patient has been placed on a furosemide drip and he has had significant urinary output which is starting to help his shortness of breath over the last few hours. He is denying fevers or chills and relates when he is lying in bed with his head propped up he is much less short of breath than he was 24 hours ago. Denies any new discomforts with feels quite poorly overall. He does relate he's been through a lot and sometimes wonder if he can keep going on. 01/01/2018 patient is much more comfortable today. Sitting upright in the chair. He's had good urinary output with the Lasix drip. He is less short of breath. The still very fatigued. Denies chest pain at the moment. Denies other new symptoms. 01/02/2018 patient is comfortable receiving his Lasix drip, short of breath but continues to have leg swelling and discomfort to his limbs. Denies fevers or chills, is sleepy and fatigued. Objective - Vital Signs Vital signs: Vital Signs Temp 97.2 F L 01/02/18 16:00 Pulse 90 01/02/18 16:00 Resp 18 01/02/18 16:00 BP 99/66 01/02/18 16:00 Pulse Ox 95 01/02/18 16:00 Intake & Output 01/02/18 01/02/18 01/03/18 06:59 18:59 06:59 Intake Total 410 970 Output Total 2750 2600 Balance -2340 -1630 Weight 118.8 kg Intake: IV 110 Furosemide 250 mg In 110 Sodium Chloride 0.9% 225 ml @ 10 MG/HR 10 mls/hr IVP .Q24H [facility] Rx#: [id number] Intake, IV Titration 100 250 Amount Furosemide 250 mg In 250 Sodium Chloride 0.9% 225 ml @ 10 MG/HR 10 mls/hr IVP [facility] [id number] Levofloxacin 500Mg-D5w 100 Pmx 500 mg In Dextrose/ Water 1 100ml.bag @ 100 mls/hr IVPB Q24H [facility] Rx#: [id number] Oral 200 720 Output: Urine 2750 2600 Uretheral (Mtz) 1400 1200 Other: Voiding Method Indwelling Catheter Indwelling Catheter - Exam 42 year old male, chronically ill, complains of shortness of breath HEENT: Anicteric conjunctiva are pink and moist nasal mucosa grossly intact without significant lesions, there is no thrush. Neck: The neck is supple without significant lymphadenopathy or thyromegaly. Lungs: Symmetrical air entry is noted there are bibasilar crackles scattered expiratory wheezes no septic and dullness or egophony is noted Heart: Irregular with an audible S1 and S2 soft S4 There is no significant murmur click or rub, PMI was nondisplaced. Abdomen: Obese, Positive bowel sounds soft and nontender without palpable masses or organomegaly. There was no guarding or rebound. Extremities: The upper extremities have excellent pulses they are symmetric, no significant petechiae or telangiectasia. No splinter hemorrhages were noted. Lower extremities have distinct bilateral lower extremity edema is pitting to the thighs and there is minimal pitting also to the lower abdominal wall consistent with some anasarca. Neuro: Awake alert oriented to person place and time. There are no acute new gross focal sensory motor deficits. But does have some generalized weakness - Labs CBC & Chem 7: 01/02/18 05:29 01/02/18 05:29 Labs: Abnormal Lab Results - Last 24 Hours (Table) 01/02/18 01/02/18 01/02/18 Range/Units 05:29 05:29 06:15 RBC 4.16 L (4.30-5.90) m/uL Hgb 11.1 L (13.0-17.5) gm/dL Hct 36.8 L (39.0-53.0) % MCHC 30.1 L (31.0-37.0) g/dL RDW 21.6 H (11.5-15.5) % Carbon Dioxide 32 H (22-30) mmol/L BUN 24 H (9-20) mg/dL Glucose 64 L (74-99) mg/dL POC Glucose (mg/dL) 55 L (75-99) mg/dL 01/02/18 01/02/18 01/02/18 Range/Units 06:32 11:10 16:10 RBC (4.30-5.90) m/uL Hgb (13.0-17.5) gm/dL Hct (39.0-53.0) % MCHC (31.0-37.0) g/dL RDW (11.5-15.5) % Carbon Dioxide (22-30) mmol/L BUN (9-20) mg/dL Glucose (74-99) mg/dL POC Glucose (mg/dL) 65 L 174 H 145 H (75-99) mg/dL 01/02/18 Range/Units 20:25 RBC (4.30-5.90) m/uL Hgb (13.0-17.5) gm/dL Hct (39.0-53.0) % MCHC (31.0-37.0) g/dL RDW (11.5-15.5) % Carbon Dioxide (22-30) mmol/L BUN (9-20) mg/dL Glucose (74-99) mg/dL POC Glucose (mg/dL) 139 H (75-99) mg/dL Microbiology - Last 24 Hours (Table) 12/31/17 01:48 Blood Culture - Preliminary Blood No Growth after 48 hours Laboratory Results WBC 5.0 k/uL (3.8-10.6) 01/02/18 05:29 RBC 4.16 m/uL (4.30-5.90) L 01/02/18 05:29 Hgb 11.1 gm/dL (13.0-17.5) L 01/02/18 05:29 Hct 36.8 % (39.0-53.0) L 01/02/18 05:29 MCV 88.5 fL (80.0-100.0) 01/02/18 05:29 MCH 26.7 pg (25.0-35.0) 01/02/18 05:29 MCHC 30.1 g/dL (31.0-37.0) L 01/02/18 05:29 RDW 21.6 % (11.5-15.5) H 01/02/18 05:29 Plt Count 254 k/uL (150-450) 01/02/18 05:29 Neutrophils % 57 % 01/02/18 05:29 Lymphocytes % 23 % 01/02/18 05:29 Monocytes % 6 % 01/02/18 05:29 Eosinophils % 12 % 01/02/18 05:29 Basophils % 1 % 01/02/18 05:29 Neutrophils # 2.8 k/uL (1.3-7.7) 01/02/18 05:29 Lymphocytes # 1.1 k/uL (1.0-4.8) 01/02/18 05:29 Monocytes # 0.3 k/uL (0-1.0) 01/02/18 05:29 Eosinophils # 0.6 k/uL (0-0.7) 01/02/18 05:29 Basophils # 0.0 k/uL (0-0.2) 01/02/18 05:29 Manual Slide Review Performed 01/01/18 05:45 Polychromasia Present 01/01/18 05:45 Hypochromasia Marked 01/02/18 05:29 Poikilocytosis Slight 12/31/17 08:08 Poikilocytosis (manual Present 01/01/18 05:45 Anisocytosis Moderate 01/02/18 05:29 Microcytosis Slight 12/30/17 20:35 PT 11.4 sec (9.0-12.0) 12/30/17 20:35 INR 1.2 (<1.2) H 12/30/17 20:35 APTT 21.1 sec (22.0-30.0) L 12/30/17 20:35 VBG pH 7.49 (7.31-7.41) H 12/30/17 20:35 VBG pCO2 31 mmHg (37-51) L 12/30/17 20:35 VBG HCO3 23 mmol/L (24-28) L 12/30/17 20:35 Sodium 137 mmol/L (137-145) 01/02/18 05:29 Potassium 3.9 mmol/L (3.5-5.1) 01/02/18 05:29 Chloride 98 mmol/L (98-107) 01/02/18 05:29 Carbon Dioxide 32 mmol/L (22-30) H 01/02/18 05:29 Anion Gap 7 mmol/L 01/02/18 05:29 BUN 24 mg/dL (9-20) H 01/02/18 05:29 Creatinine 0.90 mg/dL (0.66-1.25) 01/02/18 05:29 Est GFR (CKD-EPI)AfAm >90 (>60 ml/min/1.73 sqM) 01/02/18 05:29 Est GFR (CKD-EPI)NonAf >90 (>60 ml/min/1.73 sqM) 01/02/18 05:29 Glucose 64 mg/dL (74-99) L 01/02/18 05:29 POC Glucose (mg/dL) 139 mg/dL (75-99) H 01/02/18 20:25 POC Glu Manager Terminal ID Kateryna Khan 01/02/18 20:25 Calcium 8.6 mg/dL (8.4-10.2) 01/02/18 05:29 Total Bilirubin 0.2 mg/dL (0.2-1.3) 12/30/17 20:35 AST 74 U/L (17-59) H 12/30/17 20:35 ALT 82 U/L (21-72) H 12/30/17 20:35 Alkaline Phosphatase 374 U/L (38-126) H 12/30/17 20:35 Total Creatine Kinase 39 U/L (55-170) L 12/31/17 08:08 CK-MB (CK-2) 1.6 ng/mL (0.0-2.4) 12/31/17 08:08 CK-MB (CK-2) Rel Index 4.1 12/31/17 08:08 Troponin I 0.075 ng/mL (0.000-0.034) H* 12/31/17 08:08 NT-Pro-B Natriuret Pep 7090 pg/mL 12/30/17 20:35 Total Protein 5.2 g/dL (6.3-8.2) L 12/30/17 20:35 Albumin 2.7 g/dL (3.5-5.0) L 12/30/17 20:35 Triglycerides 114 mg/dL (<150) 12/31/17 08:08 Cholesterol 103 mg/dL (<200) 12/31/17 08:08 LDL Cholesterol, Calc 42 mg/dL (0-99) 12/31/17 08:08 HDL Cholesterol 38 mg/dL (40-60) L 12/31/17 08:08 Urine Color Yellow 12/30/17 21:30 Urine Appearance Clear (Clear) 12/30/17 21:30 Urine pH 5.0 (5.0-8.0) 12/30/17 21:30 Ur Specific [place] 1.011 (1.001-1.035) 12/30/17 21:30 Urine Protein Negative (Negative) 12/30/17 21:30 Urine Glucose (UA) Negative (Negative) 12/30/17 21:30 Urine Ketones Negative (Negative) 12/30/17 21:30 Urine Blood Negative (Negative) 12/30/17 21:30 Urine Nitrite Negative (Negative) 12/30/17 21:30 Urine Bilirubin Negative (Negative) 12/30/17 21:30 Urine Urobilinogen <2.0 mg/dL (<2.0) 12/30/17 21:30 Ur Leukocyte Esterase Negative (Negative) 12/30/17 21:30 Vancomycin Trough 5.6 ug/mL 12/31/17 21:53 Microbiology 12/31/17 01:48 Blood Blood Culture - Preliminary No Growth after 48 hours 12/30/17 21:30 Urine,Catheterized Urine Culture - Final Assessment and Plan (1) Acute on chronic systolic congestive heart failure, NYHA class 3 Current Visit: Yes Status: Acute Code(s): I50.23 - ACUTE ON CHRONIC SYSTOLIC (CONGESTIVE) HEART FAILURE SNOMED Code(s): 834961521 (2) Dyspnea Current Visit: Yes Status: Acute Code(s): R06.00 - DYSPNEA, UNSPECIFIED SNOMED Code(s): 439949745 (3) AICD (automatic cardioverter/defibrillator) present Current Visit: No Status: Acute Code(s): Z95.810 - PRESENCE OF AUTOMATIC ( IMPLANTABLE) CARDIAC DEFIBRILLATOR SNOMED Code(s): 587134869 (4) Gram-positive cocci bacteremia Narrative/Plan: 42-year-old male presents to hospital with progressive shortness of breath over several days and admission is evidence of congestive heart failure , indeterminate troponins, and evidence of the significant edema. With Lasix drip he is starting to feel somewhat better with some improvement of his shortness of breath. The chest x-ray is abnormal. Appears to be most likely congestive heart failure however levofloxacin as added pending further culture data. Has been seen by pulmonary critical care as well as cardiology. His vancomycin therapy will continue to complete the original course of therapy I believe ending 2017, the data from the outside hospital can be reviewed. Fortunately he has tolerated the vancomycin therapy very well with no evidence of any acute renal failure at this point in time. 01/02/2018 Cultures are currently pending and will further direct antibiotic therapy. The patient has no evidence of any urinary infection or significant skin infections at this time. The patient's profound shortness of breath is improving with his diuresis. In his note is up in the chair and seems to be comfortable. He will complete his course of intravenous antibiotic therapy as scheduled. Ending 01/21/2018 At this time no evidence of any ongoing bacteremia. But as noted did have difficulties of bacteremia at the outside facility. Current Visit: Yes Status: Acute Code(s): R78.81 - BACTEREMIA SNOMED Code( s): 528630746626
[2018-01-03] MEDS: MORPHINE SULFATE 2 MG/ML SYRINGE IVP PRN (02:19)
--- NOTE | 2018-01-03 03:25 | PN ---
PROGRESS NOTE This patient has a history of ischemic cardiomyopathy, and biventricular failure. Patient was admitted with increasing shortness of breath. The patient is doing fairly well. His breathing is improved. The swelling in the legs is improved and he is not short of breath at rest. Blood pressure is 100/66 mmHg. First and second heart sounds are normal. Lungs reveal a few basal rales. Swelling in the legs is improved. Patient diuresed 2600 mL during the last shift. The patient weights are not accurately measured. Patient's creatinine remains stable. We will continue the patient on Lasix drip at present. MMODL / IJN: [id number] /
[2018-01-03 05:44] LABS: Glucose,Whole Blood 84 mg/dL (75-99)
[2018-01-03] MEDS: INSULIN ASPART 100 UNIT/ML 1 ML 10 ML VIAL SQ SCH ×4 (06:38→19:59)
[2018-01-03] MEDS: PANTOPRAZOLE 40 MG TABLET PO SCH ×2 (06:39→17:16)
[2018-01-03] MEDS: MIDODRINE 5 MG TAB PO SCH ×3 (06:39→17:16)
[2018-01-03] MEDS ORDERED: VANCOMYCIN TROUGH DUE 1 EACH MISC MISCELLANE ONE (08:00)
[2018-01-03] MEDS: METOPROLOL SUCCINATE (ER) 25 MG TAB.ER.24H PO SCH (08:05)
[2018-01-03] MEDS: SERTRALINE 100 MG TAB PO SCH (08:05)
[2018-01-03] MEDS: SPIRONOLACTONE 25 MG TAB PO SCH (08:05)
[2018-01-03] MEDS: HEPARIN SODIUM,PORCINE 5,000 UNIT/ML 1 ML VIAL SQ SCH ×2 (08:05→20:07)
[2018-01-03] MEDS: ASPIRIN 81 MG PO SCH (08:05)
[2018-01-03] MEDS: traMADol 50 MG TAB PO PRN ×2 (08:06→20:07)
[2018-01-03] MEDS: LISINOPRIL 5 MG TAB PO SCH (08:06)
[2018-01-03] MEDS: PRIMIDONE 250 MG TAB PO SCH ×2 (08:07→20:08)
[2018-01-03] MEDS: GABAPENTIN 400 MG CAP PO SCH ×3 (08:07→20:08)
[2018-01-03] MEDS: FERROUS SULFATE 325 MG TAB PO SCH ×2 (08:07→20:08)
[2018-01-03 08:43] LABS: Anisocytosis Moderate; Basophils # (A) 0.1 k/uL (0-0.2); Basophils % (A) 1 %; Eosinophils # (A) 0.6 k/uL (0-0.7); Eosinophils % (A) 13 %; HCT 36.1 % (39.0-53.0); Hypochromasia Marked; Lymphocytes # (A) 0.9 k/uL (1.0-4.8); Lymphocytes % (A) 20 %; MCH 26.7 pg (25.0-35.0); MCHC 30.3 g/dL (31.0-37.0); MCV 88.2 fL (80.0-100.0); Monocytes # (A) 0.3 k/uL (0-1.0); Monocytes % (A) 6 %; Neutrophils # (A) 2.8 k/uL (1.3-7.7); Neutrophils % (A) 59 %; Platelet Count 265 k/uL (150-450); RDW 21.1 % (11.5-15.5); WBC 4.8 k/uL (3.8-10.6)
[2018-01-03 09:32] LABS: Anion Gap 9 mmol/L; Blood Urea Nitrogen 26 mg/dL (9-20); Calcium 8.4 mg/dL (8.4-10.2); Carbon Dioxide 29 mmol/L (22-30); Chloride 96 mmol/L (98-107); Glucose 147 mg/dL (74-99); Potassium 4.2 mmol/L (3.5-5.1); Sodium 134 mmol/L (137-145)
[2018-01-03] MEDS: FUROSEMIDE 250 MG in SODIUM CHLORIDE 0.9% 225 ML IVP SCH (10:37)
[2018-01-03 11:29] LABS: Glucose,Whole Blood 128 mg/dL (75-99)
[2018-01-03] MEDS ORDERED: ACETAMINOPHEN TAB 325 MG TAB PO PRN (14:49)
[2018-01-03] MEDS: KETOROLAC 30 MG/ML 1 ML VIAL IVP PRN ×2 (15:37→21:41)
[2018-01-03] MEDS: VANCOMYCIN 1,500 MG in SODIUM CHLORIDE 0.9% 250 ML IVPB SCH ×2 (15:41→20:45)
[2018-01-03 16:41] LABS: Glucose,Whole Blood 137 mg/dL (75-99)
--- NOTE | 2018-01-03 17:23 | PN ---
PROGRESS NOTE DATE OF SERVICE: 01/03/2018. This 42-year-old gentleman admitted with CHF acute exacerbation, still on IV Lasix drip. No chest pain. No palpitations. No fever. PHYSICAL EXAM: Alert and oriented x3. Pulse is 90, blood pressure 111/70, respiration 18, temperature 97.8, pulse ox 98% on room air. HEENT: Conjunctivae normal. Oral mucosa moist. NECK: No jugular venous distention. No carotid bruit. No lymph node enlargement. CARDIOVASCULAR: S1, S2. RESPIRATORY: Breath sounds diminished in the bases. A few scattered rhonchi. ABDOMEN: Soft. LEGS: Bilateral leg swelling. NERVOUS SYSTEM: No focal deficits. LABS: WBC 4.2, hemoglobin 11. ASSESSMENT: 1. Congestive heart failure acute exacerbation with acute on chronic systolic dysfunction, ejection fraction 20-25% on IV Lasix drip. 2. Ischemic cardiomyopathy with automatic implantable cardioverter-defibrillator. 3. History of coronary artery disease, myocardial infarction, stent. 4. History of bilateral leg cellulitis. 5. History of Methicillin-resistant Staphylococcus aureus. 6. 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 7. Troponin 0.072, indeterminate. 8. Diabetes type 2. 9. History of gastroesophageal reflux disease. 10.Anxiety, depression, posttraumatic stress disorder. RECOMMENDATIONS AND DISCUSSION: I recommend to continue current management, monitoring and symptomatic treatment. Otherwise at this time, we will monitor the patient closely. Otherwise, guarded prognosis because of multiple complex medical issues. Further recommendations to follow. Continue the IV Lasix. Monitor fluid electrolyte balance closely. Further recommendations to follow. MMODL / IJN: [id number] /
[2018-01-03] MEDS: ATORVASTATIN 20 MG TAB PO SCH (19:47)
[2018-01-03 20:02] LABS: Glucose,Whole Blood 127 mg/dL (75-99)
[2018-01-03] MEDS: ARIPiprazole 15 MG TAB PO SCH (20:08)
[2018-01-03] MEDS: CLOPIDOGREL 75 MG TAB PO SCH (20:08)
--- NOTE | 2018-01-03 20:11 | PN ---
PROGRESS NOTE This patient is admitted with ischemic cardiomyopathy, with severe right ventricular failure and bilateral significant leg edema. Patient seems to be responding to the Lasix drip and has been diuresing fairly well. The patient's weight is down to 118.3 kg. The patient's urine output is fairly good. Blood pressure is 101/40 mmHg. First and second heart sounds are heard. The patient had a urine output of about 2500 so far. The patient's hemoglobin is 11.1, electrolytes are normal and the creatinine is 1.0. The patient's swelling in the legs has improved. We will continue the current medications. MMODL / IJN: [id number] /
[2018-01-03] MEDS: diphenhydrAMINE 25 MG CAP PO PRN (21:41)
[2018-01-03] MEDS: LEVOFLOXACIN 500MG-D5W PMX 500 MG in DEXTROSE/WATER 1 100ML.BAG IVPB SCH (23:06)
[2018-01-03] MEDS: INSULIN DETEMIR 100 UNIT/ML 10 ML VIAL SQ SCH (23:06)
[2018-01-04] MEDS: MORPHINE SULFATE 2 MG/ML SYRINGE IVP PRN (02:28)
[2018-01-04 05:33] LABS: Glucose,Whole Blood 108 mg/dL (75-99)
[2018-01-04 06:14] LABS: Anisocytosis Moderate; Basophils % (A) 1 %; Eosinophils # (A) 0.4 k/uL (0-0.7); Eosinophils % (A) 11 %; HCT 36.6 % (39.0-53.0); HGB 11.2 gm/dL (13.0-17.5); Hypochromasia Marked; Lymphocytes # (A) 0.8 k/uL (1.0-4.8); Lymphocytes % (A) 19 %; MCH 26.9 pg (25.0-35.0); MCHC 30.7 g/dL (31.0-37.0); MCV 87.5 fL (80.0-100.0); Mean Platelet Volume 7.3; Microcytosis Slight; Monocytes # (A) 0.3 k/uL (0-1.0); Monocytes % (A) 7 %; Neutrophils # (A) 2.5 k/uL (1.3-7.7); Neutrophils % (A) 61 %; Platelet Count 278 k/uL (150-450); RBC 4.18 m/uL (4.30-5.90); RDW 21.3 % (11.5-15.5); WBC 4.1 k/uL (3.8-10.6)
[2018-01-04] MEDS: INSULIN ASPART 100 UNIT/ML 1 ML 10 ML VIAL SQ SCH ×4 (06:21→21:16)
[2018-01-04 06:26] LABS: Calcium 8.4 mg/dL (8.4-10.2); Potassium 4.5 mmol/L (3.5-5.1)
[2018-01-04] MEDS: PANTOPRAZOLE 40 MG TABLET PO SCH ×2 (06:44→16:22)
[2018-01-04] MEDS: MIDODRINE 5 MG TAB PO SCH ×3 (06:45→16:21)
[2018-01-04] MEDS: SERTRALINE 100 MG TAB PO SCH (09:29)
[2018-01-04] MEDS: METOPROLOL SUCCINATE (ER) 25 MG TAB.ER.24H PO SCH (09:29)
[2018-01-04] MEDS: VANCOMYCIN 1,500 MG in SODIUM CHLORIDE 0.9% 250 ML IVPB SCH (09:29)
[2018-01-04] MEDS: LISINOPRIL 5 MG TAB PO SCH (09:29)
[2018-01-04] MEDS: PRIMIDONE 250 MG TAB PO SCH ×2 (09:29→20:03)
[2018-01-04] MEDS: ASPIRIN 81 MG PO SCH (09:30)
[2018-01-04] MEDS: FERROUS SULFATE 325 MG TAB PO SCH ×2 (09:30→20:01)
[2018-01-04] MEDS: GABAPENTIN 400 MG CAP PO SCH ×3 (09:30→20:03)
[2018-01-04] MEDS: HEPARIN SODIUM,PORCINE 5,000 UNIT/ML 1 ML VIAL SQ SCH ×2 (09:31→20:03)
[2018-01-04] MEDS: KETOROLAC 30 MG/ML 1 ML VIAL IVP PRN ×2 (09:40→20:04)
[2018-01-04] MEDS: FUROSEMIDE 250 MG in SODIUM CHLORIDE 0.9% 225 ML IVP SCH (10:04)
[2018-01-04] MEDS: SPIRONOLACTONE 25 MG TAB PO SCH (10:04)
[2018-01-04 11:33] LABS: Glucose,Whole Blood 141 mg/dL (75-99)
[2018-01-04] MEDS: FUROSEMIDE 10 MG/ML 4 ML VIAL IV SCH ×2 (11:54→16:22)
--- NOTE | 2018-01-04 12:13 | P.PN ---
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 He has had several readmissions to the hospital, most recently he was discharged from the hospital on the fifth of this month. Patient presents back to the hospital on this occasion with symptoms of progressively worsening shortness of breath with associated peripheral edema and weight gain. Chest x-ray on admission revealed mild congestive heart failure with bilateral pleural effusions. EKG shows a paced rhythm with underlying sinus tachycardia. Most recent echocardiogram with Doppler study was performed in November of this year which revealed an ejection fraction of 20-25% . According to the patient, he has been taking all his medications as prescribed, states that he has been restricting his fluids and not eating salt. Blood pressure this morning 128/80, heart rate in the 90s. Temperature 97.7 degrees 99% on 2 L of oxygen. White blood cell count 5.8, hemoglobin 11.2, platelet count 247. Sodium 137, potassium 4.8, BUN 21, creatinine 0.8. AST 74 , ALT 82, alk phos 274. BNP level 7090. Troponins 0.07, 0.09, 0.07. Of note, patient does have abnormality in his troponin consistently. Patient denies having any chest discomfort. 01/01/2018 Patient was initiated on IV Lasix drip yesterday, diuresed well through the night last night, sodium 133 today, potassium 4.6, BUN 22, creatinine 0.8. Edema significantly improved. Patient still complains of feeling short of breath. 01/04/2018 Patient seen and examined this morning, feeling much better overall. States that his breathing has significantly improved. Blood pressure 112/60, heart rate in the 80s, 97% on room air, afebrile. White blood cell count 4.1, hemoglobin 11.2, platelet count 273. Sodium 136, potassium 4.5, BUN 36, creatinine 1.4. Objective - Vital Signs Vital signs: Vital Signs Temp 96.9 F L 01/04/18 08:00 Pulse 87 01/04/18 08:00 Resp 18 01/04/18 08:00 BP 112/68 01/04/18 08:00 Pulse Ox 97 01/04/18 08:00 Intake & Output 01/03/18 01/04/18 01/04/18 18:59 06:59 18:59 Intake Total 833.5 456.5 Output Total 2500 400 700 Balance -1666.5 -400 -243.5 Weight 120.8 kg Intake: Intake, IV Titration 233.5 234.5 Amount Furosemide 250 mg In 233.5 234.5 Sodium Chloride 0.9% 225 ml @ 10 MG/HR 10 mls/hr IVP .Q24H [facility] Rx#: [id number] Oral 600 222 Output: Urine 2500 400 700 Other: Voiding Method Indwelling Catheter Indwelling Catheter Indwelling Catheter # Bowel Movements 1 - Exam PHYSICAL EXAMINATION: GENERAL: 42-year-old gentleman in no acute distress at the time of my examination. HEENT: Head is atraumatic, normocephalic. Pupils equal, round. Sclera anicteric. Conjunctiva are clear. Mucous membranes of the mouth are moist. Neck is supple. There is elevated jugular venous pressure. No carotid bruit is heard. HEART EXAMINATION: Heart S1, S2 normal. No murmur or gallop heard. CHEST EXAMINATION: Lungs are clear to auscultation . ABDOMEN: Soft, obese, nontender. Bowel sounds are heard. No organomegaly noted. EXTREMITIES:[ 2+ peripheral pulses with trace evidence of peripheral edema, evidence of bilateral ear erythema and possible cellulitis. Bilateral Kwabena wrap dressings in place to lower extremities NEUROLOGIC patient is awake, alert and oriented X3 . - Labs CBC & Chem 7: 01/04/18 05:43 01/04/18 05:43 Labs: Abnormal Lab Results - Last 24 Hours (Table) 01/03/18 01/03/18 01/04/18 Range/Units 16:30 19:52 05:26 RBC (4.30-5.90) m/uL Hgb (13.0-17.5) gm/dL Hct (39.0-53.0) % MCHC (31.0-37.0) g/dL RDW (11.5-15.5) % Lymphocytes # (1.0-4.8) k/uL Sodium (137-145) mmol/L Chloride (98-107) mmol/L BUN (9-20) mg/dL Creatinine (0.66-1.25) mg/dL Glucose (74-99) mg/dL POC Glucose (mg/dL) 137 H 127 H 108 H (75-99) mg/dL 01/04/18 01/04/18 01/04/18 Range/Units 05:43 05:43 11:32 RBC 4.18 L (4.30-5.90) m/uL Hgb 11.2 L (13.0-17.5) gm/dL Hct 36.6 L (39.0-53.0) % MCHC 30.7 L (31.0-37.0) g/dL RDW 21.3 H (11.5-15.5) % Lymphocytes # 0.8 L (1.0-4.8) k/uL Sodium 136 L (137-145) mmol/L Chloride 97 L (98-107) mmol/L BUN 36 H (9-20) mg/dL Creatinine 1.46 H (0.66-1.25) mg/dL Glucose 105 H (74-99) mg/dL POC Glucose (mg/dL) 141 H (75-99) mg/dL Microbiology - Last 24 Hours (Table) 12/31/17 01:48 Blood Culture - Preliminary Blood No Growth after 96 hours Assessment and Plan Plan: Assessment and plan #1 systolic congestive heart failure acute on chronic #2 known history of coronary artery disease with multiple stent placements #3 ischemic cardiomyopathy with prior IV AICD #4 hypertension #5 hyperlipidemia #6 prior TIA #7 sleep apnea #8 MRSA of the lower extremities Plan We will discontinue the IV Lasix drip, start patient on IV push Lasix every 8 hourly. Check lytes BUN and creatinine in the morning. DNP note has been reviewed, I agree with a documented findings and plan of care. Patient was seen and examined.
[2018-01-04] MEDS ORDERED: LIDOCAINE 2% SYG (PF) 100 MG/5 ML MISCELLANE ONE (15:06)
--- NOTE | 2018-01-04 15:23 | P.PN ---
Subjective Progress Note Date: 01/04/18 Progress note being dictated for Dr. Clay. Interval history: This is a 42-year-old gentleman admitted with acute CHF exacerbation, bilateral leg cellulitis, elevated LFTs, elevated troponin and multiple other medical issues. Maintaining O2 sats of high 90s on 2 L nasal cannula. Telemetry reporting paced rhythm. Recent echo of last month reporting EF of 20-25%. Troponins 0.076, 0.092, 0.075. Evaluated by cardiology, recommendations noted. Diuresing on Lasix drip. Renal function improving. Minimal ambulation,currently tolerates ambulating to and from bathroom with walker. Reports minimal nonproductive cough. Denies chest pain, palpitations. Blood sugars controlled. Family reports patient had urinary retention at [facility], oconnell catheter had been placed in the ER. Urine culture pending. No vomiting, no diarrhea. 01/01/18 diuresing well on Lasix IV drip with 24-hour I&O reflecting a negative fluid balance. Edema improving. Maintaining O2 sats in the high 90s on room air. Short of breath with minimal exertion.Denies chest pain, palpitations. Telemetry reporting dual paced. Currently completing his original course of IV antibiotic therapy for prior bacteremia-possible AICD infection maintained on vancomycin as per ID through 01/21/2018. afebrile, normal WBC, preliminary blood cultures negative. Hypoglycemic earlier this morning, continues to have good diet intake, consuming 100% with no nausea or vomiting. 01/04/18 diuresing well on Lasix drip, 24-hour I&O reflecting a negative fluid balance. Edema, much improved. Breathing significantly improving, maintaining O2 sats in the high 90s on room air. Worsening renal function. Denies chest pain, palpitations. Telemetry dual paced. Objective - Vital Signs Vital signs: Vital Signs Temp 97.9 F 01/04/18 04:00 Pulse 91 01/04/18 04:00 Resp 16 01/04/18 04:00 BP 105/74 01/04/18 04:00 Pulse Ox 96 01/04/18 04:00 Intake & Output 01/03/18 01/04/18 01/04/18 18:59 06:59 18:59 Intake Total 833.5 222 Output Total 2500 400 Balance -1666.5 -400 222 Weight 120.8 kg Intake: Intake, IV Titration 233.5 Amount Furosemide 250 mg In 233.5 Sodium Chloride 0.9% 225 ml @ 10 MG/HR 10 mls/hr IVP .Q24H [facility] Rx#: [id number] Oral 600 222 Output: Urine 2500 400 Other: Voiding Method Indwelling Catheter Indwelling Catheter # Bowel Movements 1 - Exam PHYSICAL EXAM: VITAL SIGNS: As above GENERAL: Sitting up in bed, no acute distress HEENT: Conjunctivae normal. eyes normal. Oral mucosa moist NECK: Positive JVD. No thyroid enlargement. No LNs CARDIOVASCULAR: S1, S2 muffled. Positive systolic murmur RESPIRATION: Breath sounds diminished in the bases. ABDOMEN: Soft, nontender . No guarding. no masses palpable.Bowel sounds heard. LEGS: mild edema, bilateral leg cellulitis, Kwabena wrap clean dry and intact PSYCHIATRY: Alert and oriented -3, mood and affect normal. NERVOUS SYSTEM: Cranial N 2-12 grossly normal. Moves all 4 limbs. Diffuse weakness ,No focal deficits. - Labs CBC & Chem 7: 01/04/18 05:43 01/04/18 05:43 Labs: Abnormal Lab Results - Last 24 Hours (Table) 01/02/18 01/03/18 01/03/18 Range/Units 05:29 08:30 11:25 RBC (4.30-5.90) m/uL Hgb (13.0-17.5) gm/dL Hct (39.0-53.0) % MCHC (31.0-37.0) g/dL RDW (11.5-15.5) % Lymphocytes # (1.0-4.8) k/uL Sodium 134 L (137-145) mmol/L Chloride 96 L (98-107) mmol/L BUN 26 H (9-20) mg/dL Creatinine (0.66-1.25) mg/dL Glucose 147 H (74-99) mg/dL POC Glucose (mg/dL) 128 H (75-99) mg/dL Hemoglobin A1c 6.5 H (4.0-6.0) % 01/03/18 01/03/18 01/04/18 Range/Units 16:30 19:52 05:26 RBC (4.30-5.90) m/uL Hgb (13.0-17.5) gm/dL Hct (39.0-53.0) % MCHC (31.0-37.0) g/dL RDW (11.5-15.5) % Lymphocytes # (1.0-4.8) k/uL Sodium (137-145) mmol/L Chloride (98-107) mmol/L BUN (9-20) mg/dL Creatinine (0.66-1.25) mg/dL Glucose (74-99) mg/dL POC Glucose (mg/dL) 137 H 127 H 108 H (75-99) mg/dL Hemoglobin A1c (4.0-6.0) % 01/04/18 01/04/18 Range/Units 05:43 05:43 RBC 4.18 L (4.30-5.90) m/uL Hgb 11.2 L (13.0-17.5) gm/dL Hct 36.6 L (39.0-53.0) % MCHC 30.7 L (31.0-37.0) g/dL RDW 21.3 H (11.5-15.5) % Lymphocytes # 0.8 L (1.0-4.8) k/uL Sodium 136 L (137-145) mmol/L Chloride 97 L (98-107) mmol/L BUN 36 H (9-20) mg/dL Creatinine 1.46 H (0.66-1.25) mg/dL Glucose 105 H (74-99) mg/dL POC Glucose (mg/dL) (75-99) mg/dL Hemoglobin A1c (4.0-6.0) % Microbiology - Last 24 Hours (Table) 12/31/17 01:48 Blood Culture - Preliminary Blood No Growth after 96 hours Assessment and Plan Assessment: 1. Acute on chronic congestive heart failure, systolic dysfunction, EF 20-25% 2. Ischemic cardiomyopathy with history of AICD 3. CAD, history of ME, stents 4. Bilateral leg cellulitis, history of MRSA 5. Possible hepatitis, congestive hepatopathy secondary to CHF 6. Troponin 0.076, indeterminate 7. Diabetes mellitus type 2 8. Gastroesophageal reflux disease 9. Anxiety, depression, posttraumatic stress disorder Plan: Continue on current medication regime ,antibiotic, PT/OT. Maintain diuresing on Lasix . Renal function worsening, switched to Lasix IVP, Close monitoring of renal function, electrolytes with repeat labs ordered for a.m. PT /OT. Further recommendations to follow. The impression and plan of care has been dictated as directed. : I performed a history and examination of this patient, discussed the same with the dictator. I agree with the dictator's note ,documented as a scribe. Any additional findings or plans will be noted.
--- NOTE | 2018-01-04 15:35 | IR ---
PICC LINE PLACEMENT: HISTORY: Infection requiring long-term antibiotic therapy PROCEDURE: Ultrasound and fluoroscopic guidance of PICC line placement. COMPLICATIONS: None ANESTHESIA: 1. 1% Lidocaine locally. FINDINGS/TECHNIQUE: The procedure was explained to the patient. The risks, complications, benefits and alternatives were discussed and any questions were answered. Informed consent was obtained. The patient was placed supine on the fluoroscopic table and prepped and draped in the usual sterile fas ion. Utilizing a 21 gauge needle and sonographic and fluoroscopic guidance, access in the vein was achieved and there is placement of a 0.018 guidewire. The vein is patent. A 4-F sheath was placed o josh the guidewire. The guidewire and dilator were removed and a 4-F. PICC line was placed through th e sheath with the tip at the level of the SVC. The sheath was removed, the catheter was flushed and sutured into position. The patient was stable throughout the procedure and remained stable upon disc harge from the Department of Radiology. The vein puncture was patent under ultrasound. A gary scale image was obtained to document patency of the vein punctured. All elements of the maximal barrier technique were utilized. FLUOROSCOPY TIME: 0.1 minutes of fluoroscopy, one image submitted IMPRESSION: Successful PICC line placement under ultrasound and fluoroscopic guidance.
[2018-01-04 17:05] LABS: Glucose,Whole Blood 125 mg/dL (75-99)
[2018-01-04] MEDS: CLOPIDOGREL 75 MG TAB PO SCH (20:01)
[2018-01-04] MEDS: ARIPiprazole 15 MG TAB PO SCH (20:01)
[2018-01-04] MEDS: ATORVASTATIN 20 MG TAB PO SCH (20:01)
[2018-01-04 21:10] LABS: Glucose,Whole Blood 149 mg/dL (75-99)
[2018-01-04] MEDS: INSULIN DETEMIR 100 UNIT/ML 10 ML VIAL SQ SCH (21:16)
--- NOTE | 2018-01-04 21:58 | P.PN ---
Subjective Progress Note Date: 01/04/18 42 year old male who was admitted to [facility] from the extended care facility with progressive shortness of breath, it became severe enough that he was short of breath at rest and with any activity and constantly was transported emergency center. X-rays reveal evidence of congestive heart failure was also concerns for pneumonia. During his last admission he had been transferred from an outside hospital where he had been treated for bacteremia concerns to infection of his AICD. He is being treated with daptomycin therapy but he then developed pneumonia. Antibiotic therapy was altered to vancomycin and appears he has therapy to continue over the next several weeks. The patient has been placed on a furosemide drip and he has had significant urinary output which is starting to help his shortness of breath over the last few hours. He is denying fevers or chills and relates when he is lying in bed with his head propped up he is much less short of breath than he was 24 hours ago. Denies any new discomforts with feels quite poorly overall. He does relate he's been through a lot and sometimes wonder if he can keep going on. 01/01/2018 patient is much more comfortable today. Sitting upright in the chair. He's had good urinary output with the Lasix drip. He is less short of breath. The still very fatigued. Denies chest pain at the moment. Denies other new symptoms. 01/02/2018 patient is comfortable receiving his Lasix drip, short of breath but continues to have leg swelling and discomfort to his limbs. Denies fevers or chills, is sleepy and fatigued. 01/04/2018 patient is now much more comfortable, sitting up in a chair he is awake and alert interactive. This is the brightest affect he has had so far. Objective - Vital Signs Vital signs: Vital Signs Temp 99.2 F 01/04/18 19:57 Pulse 88 01/04/18 19:57 Resp 18 01/04/18 20:00 BP 92/63 01/04/18 19:57 Pulse Ox 96 01/04/18 19:57 Intake & Output 01/04/18 01/04/18 01/05/18 06:59 18:59 06:59 Intake Total 900.5 125 Output Total 400 1200 400 Balance -400 -299.5 -275 Weight 120.8 kg Intake: Intake, IV Titration 234.5 125 Amount Furosemide 250 mg In 234.5 Sodium Chloride 0.9% 225 ml @ 10 MG/HR 10 mls/hr IVP .Q24H JAKE Rx#: [id number] Vancomycin 1,500 mg In 125 Sodium Chloride 0.9% 250 ml @ 125 mls/hr IVPB Q16H JAKE Rx#:[id number] Oral 666 Output: Urine 400 1200 400 Other: Voiding Method Indwelling Catheter Indwelling Catheter Indwelling Catheter # Bowel Movements 1 - Exam 42 year old male, chronically ill, complains of shortness of breath HEENT: Anicteric conjunctiva are pink and moist nasal mucosa grossly intact without significant lesions, there is no thrush. Neck: The neck is supple without significant lymphadenopathy or thyromegaly. Lungs: Symmetrical air entry is noted there are bibasilar crackles scattered expiratory wheezes no septic and dullness or egophony is noted Heart: Irregular with an audible S1 and S2 soft S4 There is no significant murmur click or rub, PMI was nondisplaced. Abdomen: Obese, Positive bowel sounds soft and nontender without palpable masses or organomegaly. There was no guarding or rebound. Extremities: The upper extremities have excellent pulses they are symmetric, no significant petechiae or telangiectasia. No splinter hemorrhages were noted. Lower extremities have distinct bilateral lower extremity edema is pitting to the thighs and there is minimal pitting also to the lower abdominal wall consistent with some anasarca. Neuro: Awake alert oriented to person place and time. There are no acute new gross focal sensory motor deficits. But does have some generalized weakness - Labs CBC & Chem 7: 01/04/18 05:43 01/04/18 05:43 Labs: Abnormal Lab Results - Last 24 Hours (Table) 01/04/18 01/04/18 01/04/18 Range/Units 05:26 05:43 05:43 RBC 4.18 L (4.30-5.90) m/uL Hgb 11.2 L (13.0-17.5) gm/dL Hct 36.6 L (39.0-53.0) % MCHC 30.7 L (31.0-37.0) g/dL RDW 21.3 H (11.5-15.5) % Lymphocytes # 0.8 L (1.0-4.8) k/uL Sodium 136 L (137-145) mmol/L Chloride 97 L (98-107) mmol/L BUN 36 H (9-20) mg/dL Creatinine 1.46 H (0.66-1.25) mg/dL Glucose 105 H (74-99) mg/dL POC Glucose (mg/dL) 108 H (75-99) mg/dL 01/04/18 01/04/18 01/04/18 Range/Units 11:32 17:03 20:40 RBC (4.30-5.90) m/uL Hgb (13.0-17.5) gm/dL Hct (39.0-53.0) % MCHC (31.0-37.0) g/dL RDW (11.5-15.5) % Lymphocytes # (1.0-4.8) k/uL Sodium (137-145) mmol/L Chloride (98-107) mmol/L BUN (9-20) mg/dL Creatinine (0.66-1.25) mg/dL Glucose (74-99) mg/dL POC Glucose (mg/dL) 141 H 125 H 149 H (75-99) mg/dL Microbiology - Last 24 Hours (Table) 12/31/17 01:48 Blood Culture - Preliminary Blood No Growth after 96 hours Laboratory Results WBC 4.1 k/uL (3.8-10.6) 01/04/18 05:43 RBC 4.18 m/uL (4.30-5.90) L 01/04/18 05:43 Hgb 11.2 gm/dL (13.0-17.5) L 01/04/18 05:43 Hct 36.6 % (39.0-53.0) L 01/04/18 05:43 MCV 87.5 fL (80.0-100.0) 01/04/18 05:43 MCH 26.9 pg (25.0-35.0) 01/04/18 05:43 MCHC 30.7 g/dL (31.0-37.0) L 01/04/18 05:43 RDW 21.3 % (11.5-15.5) H 01/04/18 05:43 Plt Count 278 k/uL (150-450) 01/04/18 05:43 Neutrophils % 61 % 01/04/18 05:43 Lymphocytes % 19 % 01/04/18 05:43 Monocytes % 7 % 01/04/18 05:43 Eosinophils % 11 % 01/04/18 05:43 Basophils % 1 % 01/04/18 05:43 Neutrophils # 2.5 k/uL (1.3-7.7) 01/04/18 05:43 Lymphocytes # 0.8 k/uL (1.0-4.8) L 01/04/18 05:43 Monocytes # 0.3 k/uL (0-1.0) 01/04/18 05:43 Eosinophils # 0.4 k/uL (0-0.7) 01/04/18 05:43 Basophils # 0.0 k/uL (0-0.2) 01/04/18 05:43 Manual Slide Review Performed 01/01/18 05:45 Polychromasia Present 01/01/18 05:45 Hypochromasia Marked 01/04/18 05:43 Poikilocytosis Slight 12/31/17 08:08 Poikilocytosis (manual Present 01/01/18 05:45 Anisocytosis Moderate 01/04/18 05:43 Microcytosis Slight 01/04/18 05:43 PT 11.4 sec (9.0-12.0) 12/30/17 20:35 INR 1.2 (<1.2) H 12/30/17 20:35 APTT 21.1 sec (22.0-30.0) L 12/30/17 20:35 VBG pH 7.49 (7.31-7.41) H 12/30/17 20:35 VBG pCO2 31 mmHg (37-51) L 12/30/17 20:35 VBG HCO3 23 mmol/L (24-28) L 12/30/17 20:35 Sodium 136 mmol/L (137-145) L 01/04/18 05:43 Potassium 4.5 mmol/L (3.5-5.1) 01/04/18 05:43 Chloride 97 mmol/L (98-107) L 01/04/18 05:43 Carbon Dioxide 28 mmol/L (22-30) 01/04/18 05:43 Anion Gap 11 mmol/L 01/04/18 05:43 BUN 36 mg/dL (9-20) H 01/04/18 05:43 Creatinine 1.46 mg/dL (0.66-1.25) H 01/04/18 05:43 Est GFR (CKD-EPI)AfAm 68 (>60 ml/min/1.73 sqM) 01/04/18 05:43 Est GFR (CKD-EPI)NonAf 59 (>60 ml/min/1.73 sqM) 01/04/18 05:43 Glucose 105 mg/dL (74-99) H 01/04/18 05:43 POC Glucose (mg/dL) 149 mg/dL (75-99) H 01/04/18 20:40 POC Glu [employer] Techn[employer] ID Savanah Willett Candy 01/04/18 20:[address] Glu mg/dL 140 01/02/18 05:29 Hemoglobin A1c 6.5 % (4.0-6.0) H 01/02/18 05:29 Calcium 8.4 mg/dL (8.4-10.2) 01/04/18 05:43 Total Bilirubin 0.2 mg/dL (0.2-1.3) 12/30/17 20:35 AST 74 U/L (17-59) H 12/30/17 20:35 ALT 82 U/L (21-72) H 12/30/17 20:35 Alkaline Phosphatase 374 U/L (38-126) H 12/30/17 20:35 Total Creatine Kinase 39 U/L (55-170) L 12/31/17 08:08 CK-MB (CK-2) 1.6 ng/mL (0.0-2.4) 12/31/17 08:08 CK-MB (CK-2) Rel Index 4.1 12/31/17 08:08 Troponin I 0.075 ng/mL (0.000-0.034) H* 12/31/17 08:08 NT-Pro-B Natriuret Pep 7090 pg/mL 12/30/17 20:35 Total Protein 5.2 g/dL (6.3-8.2) L 12/30/17 20:35 Albumin 2.7 g/dL (3.5-5.0) L 12/30/17 20:35 Triglycerides 114 mg/dL (<150) 12/31/17 08:08 Cholesterol 103 mg/dL (<200) 12/31/17 08:08 LDL Cholesterol, Calc 42 mg/dL (0-99) 12/31/17 08:08 HDL Cholesterol 38 mg/dL (40-60) L 12/31/17 08:08 Urine Color Yellow 12/30/17 21:30 Urine Appearance Clear (Clear) 12/30/17 21:30 Urine pH 5.0 (5.0-8.0) 12/30/17 21:30 Ur Specific [place] 1.011 (1.001-1.035) 12/30/17 21:30 Urine Protein Negative (Negative) 12/30/17 21:30 Urine Glucose (UA) Negative (Negative) 12/30/17 21:30 Urine Ketones Negative (Negative) 12/30/17 21:30 Urine Blood Negative (Negative) 12/30/17 21:30 Urine Nitrite Negative (Negative) 12/30/17 21:30 Urine Bilirubin Negative (Negative) 12/30/17 21:30 Urine Urobilinogen <2.0 mg/dL (<2.0) 12/30/17 21:30 Ur Leukocyte Esterase Negative (Negative) 12/30/17 21:30 Vancomycin Trough 22.2 ug/mL 01/03/18 08:30 Microbiology 12/31/17 01:48 Blood Blood Culture - Preliminary No Growth after 96 hours 12/30/17 21:30 Urine,Catheterized Urine Culture - Final Assessment and Plan (1) Acute on chronic systolic congestive heart failure, NYHA class 3 Current Visit: Yes Status: Acute Code(s): I50.23 - ACUTE ON CHRONIC SYSTOLIC (CONGESTIVE) HEART FAILURE SNOMED Code(s): 755295941 (2) Dyspnea Current Visit: Yes Status: Acute Code(s): R06.00 - DYSPNEA, UNSPECIFIED SNOMED Code(s): 613308379 (3) AICD (automatic cardioverter/defibrillator) present Current Visit: No Status: Acute Code(s): Z95.810 - PRESENCE OF AUTOMATIC ( IMPLANTABLE) CARDIAC DEFIBRILLATOR SNOMED Code(s): 943842231 (4) Gram-positive cocci bacteremia Narrative/Plan: 42-year-old male presents to hospital with progressive shortness of breath over several days and admission is evidence of congestive heart failure , indeterminate troponins, and evidence of the significant edema. With Lasix drip he is starting to feel somewhat better with some improvement of his shortness of breath. The chest x-ray is abnormal. Appears to be most likely congestive heart failure however levofloxacin as added pending further culture data. Has been seen by pulmonary critical care as well as cardiology. His vancomycin therapy will continue to complete the original course of therapy I believe ending 2017, the data from the outside hospital can be reviewed. Fortunately he has tolerated the vancomycin therapy very well with no evidence of any acute renal failure at this point in time. 01/02/2018 Cultures are currently pending and will further direct antibiotic therapy. The patient has no evidence of any urinary infection or significant skin infections at this time. The patient's profound shortness of breath is improving with his diuresis. In his note is up in the chair and seems to be comfortable. He will complete his course of intravenous antibiotic therapy as scheduled. Ending 01/21/2018 At this time no evidence of any ongoing bacteremia. But as noted did have difficulties of bacteremia at the outside facility. 01/04/2018 patient is improved today. He is sitting upright not in respiratory distress and is had regained his mentation. Looking forward to going to rehab to complete his ability to become independent. Intravenous antibiotic therapy completes on 01/21/2018. Current Visit: Yes Status: Acute Code(s): R78.81 - BACTEREMIA SNOMED Code( s): 353558400176
[2018-01-05] MEDS: LEVOFLOXACIN 500MG-D5W PMX 500 MG in DEXTROSE/WATER 1 100ML.BAG IVPB SCH (00:29)
[2018-01-05] MEDS: FUROSEMIDE 10 MG/ML 4 ML VIAL IV SCH ×2 (00:29→08:43)
[2018-01-05] MEDS: VANCOMYCIN 1,500 MG in SODIUM CHLORIDE 0.9% 250 ML IVPB SCH ×2 (00:29→16:53)
[2018-01-05] MEDS: MORPHINE SULFATE 2 MG/ML SYRINGE IVP PRN (04:53)
[2018-01-05 05:48] LABS: Glucose,Whole Blood 95 mg/dL (75-99)
[2018-01-05] MEDS: INSULIN ASPART 100 UNIT/ML 1 ML 10 ML VIAL SQ SCH ×4 (06:09→22:02)
[2018-01-05] MEDS: MIDODRINE 5 MG TAB PO SCH ×3 (06:48→16:54)
[2018-01-05] MEDS: PANTOPRAZOLE 40 MG TABLET PO SCH ×2 (06:48→16:55)
[2018-01-05 06:53] LABS: Anisocytosis Moderate; Basophils % (A) 1 %; Eosinophils # (A) 0.6 k/uL (0-0.7); Eosinophils % (A) 11 %; HGB 11.5 gm/dL (13.0-17.5); Hypochromasia Slight; Lymphocytes # (A) 1.1 k/uL (1.0-4.8); Lymphocytes % (A) 21 %; MCH 26.7 pg (25.0-35.0); MCHC 31.2 g/dL (31.0-37.0); MCV 85.5 fL (80.0-100.0); Mean Platelet Volume 7.3; Microcytosis Slight; Monocytes # (A) 0.3 k/uL (0-1.0); Monocytes % (A) 6 %; Neutrophils # (A) 3.2 k/uL (1.3-7.7); Neutrophils % (A) 60 %; Platelet Count 256 k/uL (150-450); RBC 4.32 m/uL (4.30-5.90); RDW 21.2 % (11.5-15.5); WBC 5.3 k/uL (3.8-10.6)
[2018-01-05 07:33] LABS: Calcium 8.3 mg/dL (8.4-10.2)
[2018-01-05] MEDS: KETOROLAC 30 MG/ML 1 ML VIAL IVP PRN ×2 (08:42→16:53)
[2018-01-05] MEDS: FERROUS SULFATE 325 MG TAB PO SCH ×2 (08:43→22:00)
[2018-01-05] MEDS: HEPARIN SODIUM,PORCINE 5,000 UNIT/ML 1 ML VIAL SQ SCH ×2 (08:43→22:02)
[2018-01-05] MEDS: GABAPENTIN 400 MG CAP PO SCH ×3 (08:43→22:00)
[2018-01-05] MEDS: ASPIRIN 81 MG PO SCH (08:43)
--- NOTE | 2018-01-05 08:43 | XR ---
EXAMINATION TYPE: XR chest 2V DATE OF EXAM: 01/05/2018 COMPARISON: December 30, 2017 HISTORY: Chest pain TECHNIQUE: Frontal and lateral views of the chest are obtained. FINDINGS: There is no focal air space opacity. No evidence for pneumothorax. No pleural effusion. Pulmonary venous congestion with cardiomegaly. Suspect small bilateral pleural effusions. The osseous structures are grossly intact. IMPRESSION: 1. Pulmonary venous congestion with cardiomegaly. Suspect small bilateral pleural effusions.
[2018-01-05] MEDS: METOPROLOL SUCCINATE (ER) 25 MG TAB.ER.24H PO SCH (08:44)
[2018-01-05] MEDS: PRIMIDONE 250 MG TAB PO SCH ×2 (08:44→22:01)
[2018-01-05] MEDS: SERTRALINE 100 MG TAB PO SCH (08:44)
[2018-01-05] MEDS: SPIRONOLACTONE 25 MG TAB PO SCH (08:45)
[2018-01-05 11:57] LABS: Glucose,Whole Blood 111 mg/dL (75-99)
[2018-01-05] MEDS: LISINOPRIL 5 MG TAB PO SCH (12:57)
[2018-01-05] MEDS ORDERED: METOLAZONE 5 MG TAB PO STA (14:32)
--- NOTE | 2018-01-05 15:36 | P.PN ---
Subjective Progress Note Date: 01/05/18 Principal diagnosis: CHF This is a 42-year-old gentleman with known history of coronary artery disease and multiple stent placements, history of severe ischemic cardio myopathy with prior AICD, hypertension, diabetes, hyperlipidemia, sleep apnea, prior TIA, GERD, he follows primarily with Dr. 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 He has had several readmissions to the hospital, most recently he was discharged from the hospital on the fifth of this month. Patient presents back to the hospital on this occasion with symptoms of progressively worsening shortness of breath with associated peripheral edema and weight gain. Chest x-ray on admission revealed mild congestive heart failure with bilateral pleural effusions. EKG shows a paced rhythm with underlying sinus tachycardia. Most recent echocardiogram with Doppler study was performed in November of this year which revealed an ejection fraction of 20-25% . According to the patient, he has been taking all his medications as prescribed, states that he has been restricting his fluids and not eating salt. Blood pressure this morning 128/80, heart rate in the 90s. Temperature 97.7 degrees 99% on 2 L of oxygen. White blood cell count 5.8, hemoglobin 11.2, platelet count 247. Sodium 137, potassium 4.8, BUN 21, creatinine 0.8. AST 74 , ALT 82, alk phos 274. BNP level 7090. Troponins 0.07, 0.09, 0.07. Of note, patient does have abnormality in his troponin consistently. Patient denies having any chest discomfort. 01/01/2018 Patient was initiated on IV Lasix drip yesterday, diuresed well through the night last night, sodium 133 today, potassium 4.6, BUN 22, creatinine 0.8. Edema significantly improved. Patient still complains of feeling short of breath. 01/04/2018 Patient seen and examined this morning, feeling much better overall. States that his breathing has significantly improved. Blood pressure 112/60, heart rate in the 80s, 97% on room air, afebrile. White blood cell count 4.1, hemoglobin 11.2, platelet count 273. Sodium 136, potassium 4.5, BUN 36, creatinine 1.4. 01/05/2018 Patient seen and examined this morning, continued to diurese very well through the night last night patient states he is feeling great and wants to go home. He continues to have peripheral edema. We'll discontinue the IV diuretics today , start the patient on Demadex 40 mg by mouth twice a day and given a dose of Zaroxolyn today. Check labs in the morning. Plan for possible discharge home in the morning if stable. Objective - Vital Signs Vital signs: Vital Signs Temp 96.8 F L 01/05/18 08:00 Pulse 91 01/05/18 12:00 Resp 20 01/05/18 04:00 BP 116/73 01/05/18 12:00 Pulse Ox 95 01/05/18 12:00 Intake & Output 01/04/18 01/05/18 01/05/18 18:59 06:59 18:59 Intake Total 900.5 475 680 Output Total 1200 400 Balance -299.5 75 680 Weight 108.8 kg Intake: Intake, IV Titration 234.5 475 Amount Furosemide 250 mg In 234.5 Sodium Chloride 0.9% 225 ml @ 10 MG/HR 10 mls/hr IVP .Q24H JAKE Rx#: [id number] Levofloxacin 500Mg-D5w 100 Pmx 500 mg In Dextrose/ Water 1 100ml.bag @ 100 mls/hr IVPB Q24H JAKE Rx#: [id number] Vancomycin 1,500 mg In 375 Sodium Chloride 0.9% 250 ml @ 125 mls/hr IVPB Q16H JAKE Rx#:[id number] Oral 666 680 Output: Urine 1200 400 Other: Voiding Method Indwelling Catheter Indwelling Catheter Indwelling Catheter # Bowel Movements 1 - Exam PHYSICAL EXAMINATION: GENERAL: 42-year-old gentleman in no acute distress at the time of my examination. HEENT: Head is atraumatic, normocephalic. Pupils equal, round. Sclera anicteric. Conjunctiva are clear. Mucous membranes of the mouth are moist. Neck is supple. There is elevated jugular venous pressure. No carotid bruit is heard. HEART EXAMINATION: Heart S1, S2 normal. No murmur or gallop heard. CHEST EXAMINATION: Lungs are clear to auscultation . ABDOMEN: Soft, obese, nontender. Bowel sounds are heard. No organomegaly noted. EXTREMITIES:[ 2+ peripheral pulses with 1+ evidence of peripheral edema, evidence of bilateral ear erythema and possible cellulitis. Bilateral Kwabena wrap dressings in place to lower extremities NEUROLOGIC patient is awake, alert and oriented X3 . - Labs CBC & Chem 7: 01/05/18 06:42 01/05/18 06:42 Labs: Abnormal Lab Results - Last 24 Hours (Table) 01/04/18 01/04/18 01/05/18 Range/Units 17:03 20:40 06:42 Hgb 11.5 L (13.0-17.5) gm/dL Hct 37.0 L (39.0-53.0) % RDW 21.2 H (11.5-15.5) % Sodium (137-145) mmol/L BUN (9-20) mg/dL Creatinine (0.66-1.25) mg/dL POC Glucose (mg/dL) 125 H 149 H (75-99) mg/dL Calcium (8.4-10.2) mg/dL 01/05/18 01/05/18 Range/Units 06:42 11:55 Hgb (13.0-17.5) gm/dL Hct (39.0-53.0) % RDW (11.5-15.5) % Sodium 136 L (137-145) mmol/L BUN 41 H (9-20) mg/dL Creatinine 1.47 H (0.66-1.25) mg/dL POC Glucose (mg/dL) 111 H (75-99) mg/dL Calcium 8.3 L (8.4-10.2) mg/dL Microbiology - Last 24 Hours (Table) 12/31/17 01:48 Blood Culture - Preliminary Blood No Growth after 120 hours Assessment and Plan Plan: Assessment and plan #1 systolic congestive heart failure acute on chronic #2 known history of coronary artery disease with multiple stent placements #3 ischemic cardiomyopathy with prior IV AICD #4 hypertension #5 hyperlipidemia #6 prior TIA #7 sleep apnea #8 MRSA of the lower extremities Plan We will discontinue the IV push Lasix today and start the patient on Demadex 40 mg one tablet by mouth twice a day. Give the patient one time dose of Zaroxolyn. Check lytes BUN and creatinine in the morning. DNP note has been reviewed, I agree with a documented findings and plan of care. Patient was seen and examined.
[2018-01-05] MEDS ORDERED: FUROSEMIDE 40 MG TAB PO SCH (16:00)
--- NOTE | 2018-01-05 16:15 | P.PN ---
Subjective Progress Note Date: 01/05/18 Progress note being dictated for Dr. Clay. Interval history: This is a 42-year-old gentleman admitted with acute CHF exacerbation, bilateral leg cellulitis, elevated LFTs, elevated troponin and multiple other medical issues. Maintaining O2 sats of high 90s on 2 L nasal cannula. Telemetry reporting paced rhythm. Recent echo of last month reporting EF of 20-25%. Troponins 0.076, 0.092, 0.075. Evaluated by cardiology, recommendations noted. Diuresing on Lasix drip. Renal function improving. Minimal ambulation,currently tolerates ambulating to and from bathroom with walker. Reports minimal nonproductive cough. Denies chest pain, palpitations. Blood sugars controlled. Family reports patient had urinary retention at [facility] [place], oconnell catheter had been placed in the ER. Urine culture pending. No vomiting, no diarrhea. 01/01/18 diuresing well on Lasix IV drip with 24-hour I&O reflecting a negative fluid balance. Edema improving. Maintaining O2 sats in the high 90s on room air. Short of breath with minimal exertion.Denies chest pain, palpitations. Telemetry reporting dual paced. Currently completing his original course of IV antibiotic therapy for prior bacteremia-possible AICD infection maintained on vancomycin as per ID through 01/21/2018. afebrile, normal WBC, preliminary blood cultures negative. Hypoglycemic earlier this morning, continues to have good diet intake, consuming 100% with no nausea or vomiting. 01/04/18 diuresing well on Lasix drip, 24-hour I&O reflecting a negative fluid balance. Edema, much improved. Breathing significantly improving, maintaining O2 sats in the high 90s on room air. Worsening renal function. Denies chest pain, palpitations. Telemetry dual paced. 01/05/2018 diuresing well on Lasix IV push, 24-hour reflecting a negative fluid balance, weight loss. Edema continues to improve. Creatinine 1.47. Chest x- ray reporting pulmonary venous congestion with suspected small bilateral pleural effusions. Lasix IV push discontinued and now on Demadex as per cardiology. Patient wager for discharge. Objective - Vital Signs Vital signs: Vital Signs Temp 96.8 F L 01/05/18 08:00 Pulse 91 01/05/18 12:00 Resp 20 01/05/18 04:00 BP 116/73 01/05/18 12:00 Pulse Ox 95 01/05/18 12:00 Intake & Output 01/04/18 01/05/18 01/05/18 18:59 06:59 18:59 Intake Total 900.5 475 680 Output Total 1200 400 Balance -299.5 75 680 Weight 108.8 kg Intake: Intake, IV Titration 234.5 475 Amount Furosemide 250 mg In 234.5 Sodium Chloride 0.9% 225 ml @ 10 MG/HR 10 mls/hr IVP .Q24H JAKE Rx#: [id number] Levofloxacin 500Mg-D5w 100 Pmx 500 mg In Dextrose/ Water 1 100ml.bag @ 100 mls/hr IVPB Q24H JAKE Rx#: [id number] Vancomycin 1,500 mg In 375 Sodium Chloride 0.9% 250 ml @ 125 mls/hr IVPB Q16H JAKE Rx#:[id number] Oral 666 680 Output: Urine 1200 400 Other: Voiding Method Indwelling Catheter Indwelling Catheter Indwelling Catheter # Bowel Movements 1 - Exam PHYSICAL EXAM: VITAL SIGNS: As above GENERAL: Sitting up in bed, no acute distress HEENT: Conjunctivae normal. eyes normal. Oral mucosa moist NECK: Positive JVD. No thyroid enlargement. No LNs. CARDIOVASCULAR: S1, S2 muffled. Positive systolic murmur RESPIRATION: Breath sounds diminished in the bases. ABDOMEN: Soft, nontender . No guarding. no masses palpable.Bowel sounds heard. LEGS: Improving -mild edema, bilateral leg cellulitis, Kwabena wrap clean dry and intact PSYCHIATRY: Alert and oriented -3, mood and affect normal. NERVOUS SYSTEM: Cranial N 2-12 grossly normal. Moves all 4 limbs. No focal deficits. - Labs CBC & Chem 7: 01/05/18 06:42 01/05/18 06:42 Labs: Abnormal Lab Results - Last 24 Hours (Table) 01/04/18 01/04/18 01/05/18 Range/Units 17:03 20:40 06:42 Hgb 11.5 L (13.0-17.5) gm/dL Hct 37.0 L (39.0-53.0) % RDW 21.2 H (11.5-15.5) % Sodium (137-145) mmol/L BUN (9-20) mg/dL Creatinine (0.66-1.25) mg/dL POC Glucose (mg/dL) 125 H 149 H (75-99) mg/dL Calcium (8.4-10.2) mg/dL 01/05/18 01/05/18 Range/Units 06:42 11:55 Hgb (13.0-17.5) gm/dL Hct (39.0-53.0) % RDW (11.5-15.5) % Sodium 136 L (137-145) mmol/L BUN 41 H (9-20) mg/dL Creatinine 1.47 H (0.66-1.25) mg/dL POC Glucose (mg/dL) 111 H (75-99) mg/dL Calcium 8.3 L (8.4-10.2) mg/dL Microbiology - Last 24 Hours (Table) 12/31/17 01:48 Blood Culture - Preliminary Blood No Growth after 120 hours Assessment and Plan Assessment: 1. Acute on chronic congestive heart failure, systolic dysfunction, EF 20-25% 2. Ischemic cardiomyopathy with history of AICD 3. CAD, history of DE, stents 4. Bilateral leg cellulitis, history of MRSA 5. Possible hepatitis, congestive hepatopathy secondary to CHF 6. Troponin 0.076, indeterminate 7. Diabetes mellitus type 2 8. Gastroesophageal reflux disease 9. Anxiety, depression, posttraumatic stress disorder Plan: Continue on current medication regime ,antibiotic, PT/OT. Continue on Demadex, close monitoring of renal function, electrolytes with repeat labs ordered for a.m. PT/OT. Discharge planning in progress for tomorrow, pending cardiology clearance. The impression and plan of care has been dictated as directed. : I performed a history and examination of this patient, discussed the same with the dictator. I agree with the dictator's note ,documented as a scribe. Any additional findings or plans will be noted.
[2018-01-05 16:54] LABS: Glucose,Whole Blood 181 mg/dL (75-99)
[2018-01-05] MEDS: FUROSEMIDE 40 MG TAB PO SCH (16:54)
[2018-01-05 20:50] LABS: Glucose,Whole Blood 136 mg/dL (75-99)
[2018-01-05] MEDS: CLOPIDOGREL 75 MG TAB PO SCH (22:00)
[2018-01-05] MEDS: ARIPiprazole 15 MG TAB PO SCH (22:01)
[2018-01-05] MEDS: ATORVASTATIN 20 MG TAB PO SCH (22:01)
[2018-01-05] MEDS: INSULIN DETEMIR 100 UNIT/ML 10 ML VIAL SQ SCH (22:03)
--- NOTE | 2018-01-05 22:15 | P.PN ---
Subjective Progress Note Date: 01/05/18 42 year old male who was admitted to [facility] from the extended care facility with progressive shortness of breath, it became severe enough that he was short of breath at rest and with any activity and constantly was transported emergency center. X-rays reveal evidence of congestive heart failure was also concerns for pneumonia. During his last admission he had been transferred from an outside hospital where he had been treated for bacteremia concerns to infection of his AICD. He is being treated with daptomycin therapy but he then developed pneumonia. Antibiotic therapy was altered to vancomycin and appears he has therapy to continue over the next several weeks. The patient has been placed on a furosemide drip and he has had significant urinary output which is starting to help his shortness of breath over the last few hours. He is denying fevers or chills and relates when he is lying in bed with his head propped up he is much less short of breath than he was 24 hours ago. Denies any new discomforts with feels quite poorly overall. He does relate he's been through a lot and sometimes wonder if he can keep going on. 01/01/2018 patient is much more comfortable today. Sitting upright in the chair. He's had good urinary output with the Lasix drip. He is less short of breath. The still very fatigued. Denies chest pain at the moment. Denies other new symptoms. 01/02/2018 patient is comfortable receiving his Lasix drip, short of breath but continues to have leg swelling and discomfort to his limbs. Denies fevers or chills, is sleepy and fatigued. 01/04/2018 patient is now much more comfortable, sitting up in a chair he is awake and alert interactive. This is the brightest affect he has had so far. 01/05/2018 patient is comfortable continues to sit upright. His IV diuretic is been altered to oral Demadex per cardiology and is being ready for potential discharge to rehab. Patient is comfortable Objective - Vital Signs Vital signs: Vital Signs Temp 96.8 F L 01/05/18 08:00 Pulse 91 01/05/18 16:00 Resp 20 01/05/18 04:00 BP 95/59 01/05/18 16:00 Pulse Ox 98 01/05/18 16:00 Intake & Output 01/05/18 01/05/18 01/06/18 06:59 18:59 06:59 Intake Total 475 920 Output Total 400 Balance 75 920 Weight 108.8 kg Intake: Intake, IV Titration 475 Amount Levofloxacin 500Mg-D5w 100 Pmx 500 mg In Dextrose/ Water 1 100ml.bag @ 100 mls/hr IVPB Q24H [facility] Rx#: [id number] Vancomycin 1,500 mg In 375 Sodium Chloride 0.9% 250 ml @ 125 mls/hr IVPB Q16H [facility] Rx#:[id number] Oral 920 Output: Urine 400 Other: Voiding Method Indwelling Catheter Indwelling Catheter - Exam 42 year old male, chronically ill, complains of shortness of breath HEENT: Anicteric conjunctiva are pink and moist nasal mucosa grossly intact without significant lesions, there is no thrush. Neck: The neck is supple without significant lymphadenopathy or thyromegaly. Lungs: Symmetrical air entry is noted there are bibasilar crackles scattered expiratory wheezes no septic and dullness or egophony is noted Heart: Irregular with an audible S1 and S2 soft S4 There is no significant murmur click or rub, PMI was nondisplaced. Abdomen: Obese, Positive bowel sounds soft and nontender without palpable masses or organomegaly. There was no guarding or rebound. Extremities: The upper extremities have excellent pulses they are symmetric, no significant petechiae or telangiectasia. No splinter hemorrhages were noted. Lower extremities have distinct bilateral lower extremity edema is pitting to the thighs and there is minimal pitting also to the lower abdominal wall consistent with some anasarca. Neuro: Awake alert oriented to person place and time. There are no acute new gross focal sensory motor deficits. But does have some generalized weakness - Labs CBC & Chem 7: 01/05/18 06:42 01/05/18 06:42 Labs: Abnormal Lab Results - Last 24 Hours (Table) 01/05/18 01/05/18 01/05/18 Range/Units 06:42 06:42 11:55 Hgb 11.5 L (13.0-17.5) gm/dL Hct 37.0 L (39.0-53.0) % RDW 21.2 H (11.5-15.5) % Sodium 136 L (137-145) mmol/L BUN 41 H (9-20) mg/dL Creatinine 1.47 H (0.66-1.25) mg/dL POC Glucose (mg/dL) 111 H (75-99) mg/dL Calcium 8.3 L (8.4-10.2) mg/dL 01/05/18 01/05/18 Range/Units 16:52 20:47 Hgb (13.0-17.5) gm/dL Hct (39.0-53.0) % RDW (11.5-15.5) % Sodium (137-145) mmol/L BUN (9-20) mg/dL Creatinine (0.66-1.25) mg/dL POC Glucose (mg/dL) 181 H 136 H (75-99) mg/dL Calcium (8.4-10.2) mg/dL Microbiology - Last 24 Hours (Table) 12/31/17 01:48 Blood Culture - Preliminary Blood No Growth after 120 hours Assessment and Plan (1) Acute on chronic systolic congestive heart failure, NYHA class 3 Current Visit: Yes Status: Acute Code(s): I50.23 - ACUTE ON CHRONIC SYSTOLIC (CONGESTIVE) HEART FAILURE SNOMED Code(s): 506173139 (2) Dyspnea Current Visit: Yes Status: Acute Code(s): R06.00 - DYSPNEA, UNSPECIFIED SNOMED Code(s): 335793023 (3) AICD (automatic cardioverter/defibrillator) present Current Visit: No Status: Acute Code(s): Z95.810 - PRESENCE OF AUTOMATIC ( IMPLANTABLE) CARDIAC DEFIBRILLATOR SNOMED Code(s): 652119810 (4) Gram-positive cocci bacteremia Narrative/Plan: 42-year-old male presents to hospital with progressive shortness of breath over several days and admission is evidence of congestive heart failure , indeterminate troponins, and evidence of the significant edema. With Lasix drip he is starting to feel somewhat better with some improvement of his shortness of breath. The chest x-ray is abnormal. Appears to be most likely congestive heart failure however levofloxacin as added pending further culture data. Has been seen by pulmonary critical care as well as cardiology. His vancomycin therapy will continue to complete the original course of therapy I believe ending 2017, the data from the outside hospital can be reviewed. Fortunately he has tolerated the vancomycin therapy very well with no evidence of any acute renal failure at this point in time. 01/02/2018 Cultures are currently pending and will further direct antibiotic therapy. The patient has no evidence of any urinary infection or significant skin infections at this time. The patient's profound shortness of breath is improving with his diuresis. In his note is up in the chair and seems to be comfortable. He will complete his course of intravenous antibiotic therapy as scheduled. Ending 01/21/2018 At this time no evidence of any ongoing bacteremia. But as noted did have difficulties of bacteremia at the outside facility. 01/04/2018 patient is improved today. He is sitting upright not in respiratory distress and is had regained his mentation. Looking forward to going to rehab to complete his ability to become independent. Intravenous antibiotic therapy completes on 01/21/2018. 01/05/2018 patient has further improvement. His diuretic therapy is transitioned to oral. He'll be monitored by cardiology and potentially cure for discharge back to rehab tomorrow to complete his antibiotic therapy on 01/21 with vancomycin. Pharmacy to dose. To follow in the office at the end of his antibiotic therapy to ensure its completion. Current Visit: Yes Status: Acute Code(s): R78.81 - BACTEREMIA SNOMED Code( s): 866809407729
[2018-01-06 00:58] VITALS: RESP 18
[2018-01-06] MEDS: KETOROLAC 30 MG/ML 1 ML VIAL IVP PRN ×2 (02:00→08:26)
[2018-01-06 06:32] LABS: Glucose,Whole Blood 130 mg/dL (75-99)
[2018-01-06] MEDS: INSULIN ASPART 100 UNIT/ML 1 ML 10 ML VIAL SQ SCH ×2 (06:39→12:06)
[2018-01-06] MEDS: MIDODRINE 5 MG TAB PO SCH ×2 (06:41→12:06)
[2018-01-06] MEDS: PANTOPRAZOLE 40 MG TABLET PO SCH (06:41)
[2018-01-06] MEDS ORDERED: VANCOMYCIN TROUGH DUE 1 EACH MISC MISCELLANE ONE (07:00)
[2018-01-06 08:21] VITALS: TEMP 97.9
[2018-01-06] MEDS: VANCOMYCIN 1,500 MG in SODIUM CHLORIDE 0.9% 250 ML IVPB SCH (08:27)
[2018-01-06] MEDS: FUROSEMIDE 40 MG TAB PO SCH (08:28)
[2018-01-06] MEDS: SPIRONOLACTONE 25 MG TAB PO SCH (08:28)
[2018-01-06] MEDS: PRIMIDONE 250 MG TAB PO SCH (08:28)
[2018-01-06] MEDS: GABAPENTIN 400 MG CAP PO SCH (08:28)
[2018-01-06] MEDS: ASPIRIN 81 MG PO SCH (08:29)
[2018-01-06] MEDS: HEPARIN SODIUM,PORCINE 5,000 UNIT/ML 1 ML VIAL SQ SCH (08:29)
[2018-01-06] MEDS: FERROUS SULFATE 325 MG TAB PO SCH (08:29)
[2018-01-06] MEDS: METOPROLOL SUCCINATE (ER) 25 MG TAB.ER.24H PO SCH (08:29)
[2018-01-06] MEDS: SERTRALINE 100 MG TAB PO SCH (08:29)
[2018-01-06] MEDS ORDERED: LEVOFLOXACIN 500 MG TAB PO SCH (09:00)
[2018-01-06 10:26] LABS: Calcium 8.5 mg/dL (8.4-10.2); Potassium 4.8 mmol/L (3.5-5.1)
--- NOTE | 2018-01-06 10:37 | P.DS ---
Providers Date of admission: 12/30/17 22:07 Expected date of discharge: 01/06/18 Attending physician: Safia Clay Consults: 12/30/17 22:07 Consult Physician Urgent Consulting Provider: Neri Barney Consult Reason/Comments: chest pain Do you want consulting provider notified?: Yes 12/30/17 23:11 Consult Physician Routine Consulting Provider: Gordon Platt Consult Reason/Comments: cellulitiis Do you want consulting provider notified?: Yes Primary care physician: [facility] Hospital Course: Final Diagnoses: 1. Acute on chronic congestive heart failure, systolic dysfunction, EF 20-25% 2. Ischemic cardiomyopathy with history of AICD 3. CAD, history of OH, stents 4. Bilateral leg cellulitis, history of MRSA 5. Possible hepatitis, congestive hepatopathy secondary to CHF 6. Troponin 0.076, indeterminate 7. Diabetes mellitus type 2 8. Gastroesophageal reflux disease 9. Anxiety, depression, posttraumatic stress disorder Hospital course:This is a 42-year-old gentleman admitted with acute CHF exacerbation, bilateral leg cellulitis, elevated LFTs, elevated troponin and multiple other medical issues. Maintaining O2 sats of high 90s on 2 L nasal cannula. Recent echo of last month reporting EF of 20-25%. Troponins 0.076, 0.092, 0.075. Evaluated by cardiology and infectious disease.Diuresed well on Lasix drip, renal function worsened, converted to oral. Currently completing his original course of IV antibiotic therapy for prior bacteremia-possible AICD infection maintained on vancomycin as per ID. significant clinical improvement. Cleared by all consults for discharge. Patient is being discharged to [facility] subacute rehab in a stable condition with guarded prognosis. EXAM:GENERAL: Alert and oriented, no acute distress CARDIOVASCULAR: S1, S2 muffled. Positive systolic murmur RESPIRATION: Breath sounds diminished in the bases. ABDOMEN: Soft, nontender . No guarding. no masses palpable.Bowel sounds heard. LEGS: Improving -mild edema, bilateral leg cellulitis, Kwabena wrap clean dry and intact NERVOUS SYSTEM: Cranial N 2-12 grossly normal. Moves all 4 limbs. No focal deficits. The impression and plan of care has been dictated as directed. : I performed a history and examination of this patient, discussed the same with the dictator. I agree with the dictator's note ,documented as a scribe. Any additional findings or plans will be noted. Time taken: 35 minutes Patient Condition at Discharge: Stable Plan - Discharge Summary Discharge Rx Participant: No New Discharge Prescriptions: New Acetaminophen Tab [Tylenol] 650 mg PO Q4HR PRN tab PRN Reason: Fever and/ or MILD Pain Furosemide [Lasix] 40 mg PO BID@0900,1600 tab Insulin Detemir [Levemir] 14 unit SQ HS syr INSULIN LISPRO (HumaLOG) [humaLOG] 0 unit SQ ACHS #1 vial Spironolactone [Aldactone] 25 mg PO DAILY tab Continue Aspirin 81 mg PO DAILY chew Gabapentin [Neurontin] 400 mg PO TID cap Nitroglycerin Sl Tabs [Nitrostat] 0.4 mg SUBLINGUAL Q5M PRN tab PRN Reason: Chest Pain ARIPiprazole [ARIPiprazole Odt] 15 mg PO HS Metoprolol Succinate [Toprol XL] 25 mg PO DAILY Ferrous Sulfate [Iron (65 MG Elemental)] 325 mg PO BID Primidone [Mysoline] 500 mg PO BID Clopidogrel [Plavix] 75 mg PO HS Sertraline [Zoloft] 200 mg PO DAILY Midodrine [ProAmatine] 5 mg PO AC-TID tab Sennosides [Senokot] 8.6 mg PO BID PRN tab PRN Reason: Constipation Omeprazole [PriLOSEC] 20 mg PO AC-BID #30 cap Ondansetron [Zofran] 4 mg PO Q8HR PRN PRN Reason: Nausea Vancomycin 1,500 mg IVPB HS Rosuvastatin [Crestor] 20 mg PO HS traMADol HCl [Ultram] 50 mg PO QID PRN #12 tab PRN Reason: Pain Discontinued Insulin Aspart [NovoLOG (formulary)] 5 unit SQ AC-TID vial Insulin Detemir [Levemir] 20 unit SQ HS syr Insulin Aspart [NovoLOG (formulary)] See Protocol SQ ACHS Furosemide [Lasix] 40 mg PO DIRECTED Furosemide 40 mg PO DIRECTED Discharge Medication List Aspirin 81 mg PO DAILY chew 07/27/17 [Rx] Gabapentin [Neurontin] 400 mg PO TID cap 07/27/17 [Rx] Nitroglycerin Sl Tabs [Nitrostat] 0.4 mg SUBLINGUAL Q5M PRN tab 07/27/17 [Rx] ARIPiprazole [ARIPiprazole Odt] 15 mg PO HS 10/27/17 [History] Clopidogrel [Plavix] 75 mg PO HS 12/03/17 [History] Ferrous Sulfate [Iron (65 MG Elemental)] 325 mg PO BID 12/03/17 [History] Metoprolol Succinate [Toprol XL] 25 mg PO DAILY 12/03/17 [History] Primidone [Mysoline] 500 mg PO BID 12/03/17 [History] Sertraline [Zoloft] 200 mg PO DAILY 12/05/17 [History] Midodrine [ProAmatine] 5 mg PO AC-TID tab 12/18/17 [Rx] Sennosides [Senokot] 8.6 mg PO BID PRN tab 12/18/17 [Rx] Omeprazole [PriLOSEC] 20 mg PO AC-BID #30 cap 12/21/17 [Rx] Ondansetron [Zofran] 4 mg PO Q8HR PRN 12/30/17 [History] Rosuvastatin [Crestor] 20 mg PO HS 12/30/17 [History] Vancomycin 1,500 mg IVPB HS 12/30/17 [History] Acetaminophen Tab [Tylenol] 650 mg PO Q4HR PRN tab 01/06/18 [Rx] Furosemide [Lasix] 40 mg PO BID@0900,1600 tab 01/06/18 [Rx] INSULIN LISPRO (HumaLOG) [humaLOG] 0 unit SQ ACHS #1 vial 01/06/18 [Rx] Insulin Detemir [Levemir] 14 unit SQ HS syr 01/06/18 [Rx] Spironolactone [Aldactone] 25 mg PO DAILY tab 01/06/18 [Rx] traMADol HCl [Ultram] 50 mg PO QID PRN #12 tab 01/06/18 [Rx] Follow up Appointment(s)/Referral(s): Gordon Platt MD [STAFF PHYSICIAN] - 1 Week Junie New MD [Primary Care Provider] - 1 Week (After DC from subacute rehab) Flo Tse MD [STAFF PHYSICIAN] - 3 Days (While at subacute rehab) Patient Instructions/Handouts: Heart Failure (DC), Low Sodium Diet (DC), Bacteremia (DC) Activity/Diet/Wound Care/Special Instructions: [place] E[facility] antibx . Vancomycin duration as per ID and borderline hypotension , KWABENA inhibitor on hold, reevaluate outpatient with PCP,-possibly resume at a lower dose of Lisinopril 2.5 mg daily Diet: Consistent carb, CHF diet,ANGELINA Activity: As tolerated CBC, BMP in 3 days
[2018-01-06 11:13] LABS: Glucose,Whole Blood 171 mg/dL (75-99)
[2018-01-06 11:15] VITALS: BMI 43.8
[2018-01-06 11:49] VITALS: BP 104/73; PULSE 91
[2018-01-06] MEDS: LISINOPRIL 5 MG TAB PO SCH (12:06)
--- NOTE | 2018-01-06 14:33 | P.PN ---
Subjective Progress Note Date: 01/06/18 Principal diagnosis: CHF This is a 42-year-old gentleman with known history of coronary artery disease and multiple stent placements, history of severe ischemic cardio myopathy with prior AICD, hypertension, diabetes, hyperlipidemia, sleep apnea, prior TIA, GERD, he follows primarily with Dr. Peres in [place] as his orientation and mobility instructor. He has had several readmissions to the hospital, most recently he was discharged from the hospital on the fifth of this month. Patient presents back to the hospital on this occasion with symptoms of progressively worsening shortness of breath with associated peripheral edema and weight gain. Chest x-ray on admission revealed mild congestive heart failure with bilateral pleural effusions. EKG shows a paced rhythm with underlying sinus tachycardia. Most recent echocardiogram with Doppler study was performed in November of this year which revealed an ejection fraction of 20-25% . According to the patient, he has been taking all his medications as prescribed, states that he has been restricting his fluids and not eating salt. Blood pressure this morning 128/80, heart rate in the 90s. Temperature 97.7 degrees 99% on 2 L of oxygen. White blood cell count 5.8, hemoglobin 11.2, platelet count 247. Sodium 137, potassium 4.8, BUN 21, creatinine 0.8. AST 74 , ALT 82, alk phos 274. BNP level 7090. Troponins 0.07, 0.09, 0.07. Of note, patient does have abnormality in his troponin consistently. Patient denies having any chest discomfort. 01/01/2018 Patient was initiated on IV Lasix drip yesterday, diuresed well through the night last night, sodium 133 today, potassium 4.6, BUN 22, creatinine 0.8. Edema significantly improved. Patient still complains of feeling short of breath. 01/04/2018 Patient seen and examined this morning, feeling much better overall. States that his breathing has significantly improved. Blood pressure 112/60, heart rate in the 80s, 97% on room air, afebrile. White blood cell count 4.1, hemoglobin 11.2, platelet count 273. Sodium 136, potassium 4.5, BUN 36, creatinine 1.4. 01/05/2018 Patient seen and examined this morning, continued to diurese very well through the night last night patient states he is feeling great and wants to go home. He continues to have peripheral edema. We'll discontinue the IV diuretics today , start the patient on Demadex 40 mg by mouth twice a day and given a dose of Zaroxolyn today. Check labs in the morning. Plan for possible discharge home in the morning if stable. 01/06/2018 Patient seen and examined this morning, breathing is stable, diuresed well again through the night last night. He is eager to be discharged home today. Hemodynamically he is stable. We will discontinue the IV Lasix today, and start the patient on Demadex 40 mg in the morning and 20 mg in the evening. Lytes BUN and creatinine in one week. He's been encouraged to follow-up with his orientation and mobility instructor post discharge. Objective - Vital Signs Vital signs: Vital Signs Temp 97.9 F 01/06/18 11:48 Pulse 91 01/06/18 11:48 Resp 18 01/06/18 11:48 BP 104/73 01/06/18 11:48 Pulse Ox 91 L 01/06/18 11:48 Intake & Output 01/05/18 01/06/18 01/06/18 18:59 06:59 18:59 Intake Total 920 480 Output Total 350 500 Balance 920 -350 -20 Weight 123.2 kg 123.2 kg Intake: Oral 920 480 Output: Urine 350 500 Other: Voiding Method Indwelling Catheter # Voids 2 - Exam PHYSICAL EXAMINATION: GENERAL: 42-year-old gentleman in no acute distress at the time of my examination. HEENT: Head is atraumatic, normocephalic. Pupils equal, round. Sclera anicteric. Conjunctiva are clear. Mucous membranes of the mouth are moist. Neck is supple. There is elevated jugular venous pressure. No carotid bruit is heard. HEART EXAMINATION: Heart S1, S2 normal. No murmur or gallop heard. CHEST EXAMINATION: Lungs are clear to auscultation . ABDOMEN: Soft, obese, nontender. Bowel sounds are heard. No organomegaly noted. EXTREMITIES:[ 2+ peripheral pulses with 1+ evidence of peripheral edema, evidence of bilateral ear erythema and possible cellulitis. Bilateral Kwabena wrap dressings in place to lower extremities NEUROLOGIC patient is awake, alert and oriented X3 . - Labs CBC & Chem 7: 01/05/18 06:42 01/06/18 07:03 Labs: Abnormal Lab Results - Last 24 Hours (Table) 01/05/18 01/05/18 01/06/18 Range/Units 16:52 20:47 06:31 Sodium (137-145) mmol/L BUN (9-20) mg/dL Creatinine (0.66-1.25) mg/dL Glucose (74-99) mg/dL POC Glucose (mg/dL) 181 H 136 H 130 H (75-99) mg/dL 01/06/18 01/06/18 Range/Units 07:03 11:03 Sodium 135 L (137-145) mmol/L BUN 48 H (9-20) mg/dL Creatinine 1.60 H (0.66-1.25) mg/dL Glucose 108 H (74-99) mg/dL POC Glucose (mg/dL) 171 H (75-99) mg/dL Microbiology - Last 24 Hours (Table) 12/31/17 01:48 Blood Culture - Final Blood No Growth after 144 hours Assessment and Plan Plan: Assessment and plan #1 systolic congestive heart failure acute on chronic #2 known history of coronary artery disease with multiple stent placements #3 ischemic cardiomyopathy with prior IV AICD #4 hypertension #5 hyperlipidemia #6 prior TIA #7 sleep apnea #8 MRSA of the lower extremities Plan From cardiology's perspective, patient may be able to be discharged home on Demadex 40 mg in the morning and 20 mg in the evening. He's been instructed to follow-up with his orientation and mobility instructor post discharge. DNP note has been reviewed, I agree with a documented findings and plan of care. Patient was seen and examined.
[2018-01-07] MEDS ORDERED: TORSEMIDE 20 MG TAB PO SCH ×2 (08:00→15:00)
[2018-01-07] MEDS ORDERED: VANCOMYCIN 1,500 MG in SODIUM CHLORIDE 0.9% 250 ML IVPB SCH (09:00)
== END 2018-01-06 13:29 | DRG 291 ==
LOC: EC 18:38 → 6SEL 22:07
PROVIDERS: ADMIT Hospitalist; ATTEND Hospitalist
PROC: 02HV33Z Insertion of Infusion Device into Superior Vena Cava, Percutaneous Approach (ICD-10-PCS; principal; 2018-01-04 14:57)
DX: I11.0 Hypertensive heart disease with heart failure (principal); J18.9 Pneumonia, unspecified organism; L03.115 Cellulitis of right lower limb; L03.116 Cellulitis of left lower limb; R78.81 Bacteremia; E11.649 Type 2 diabetes mellitus with hypoglycemia without coma; E11.43 Type 2 diabetes mellitus with diabetic autonomic (poly)neuropathy; K31.84 Gastroparesis; I50.23 Acute on chronic systolic (congestive) heart failure; I50.814 Right heart failure due to left heart failure; K76.1 Chronic passive congestion of liver; K75.9 Inflammatory liver disease, unspecified; J45.909 Unspecified asthma, uncomplicated; K21.9 Gastro-esophageal reflux disease without esophagitis; I25.2 Old myocardial infarction; E78.5 Hyperlipidemia, unspecified; M19.91 Primary osteoarthritis, unspecified site; I25.5 Ischemic cardiomyopathy; G47.33 Obstructive sleep apnea (adult) (pediatric); F32.9 Major depressive disorder, single episode, unspecified; F43.10 Post-traumatic stress disorder, unspecified; K29.50 Unspecified chronic gastritis without bleeding; G89.29 Other chronic pain; M54.9 Dorsalgia, unspecified; L40.9 Psoriasis, unspecified; G43.909 Migraine, unspecified, not intractable, without status migrainosus; K44.9 Diaphragmatic hernia without obstruction or gangrene; R33.9 Retention of urine, unspecified; I25.10 Atherosclerotic heart disease of native coronary artery without angina pectoris; Z79.82 Long term (current) use of aspirin; Z79.02 Long term (current) use of antithrombotics/antiplatelets; Z79.4 Long term (current) use of insulin; Z79.899 Other long term (current) drug therapy; Z95.810 Presence of automatic (implantable) cardiac defibrillator; Z86.73 Personal history of transient ischemic attack (TIA), and cerebral infarction without residual deficits; Z87.440 Personal history of urinary (tract) infections; Z86.14 Personal history of Methicillin resistant Staphylococcus aureus infection; Z95.5 Presence of coronary angioplasty implant and graft; Z90.49 Acquired absence of other specified parts of digestive tract; Z91.5 Personal history of self-harm; Z87.01 Personal history of pneumonia (recurrent); Z88.8 Allergy status to other drugs, medicaments and biological substances; Z88.1 Allergy status to other antibiotic agents; Z91.041 Radiographic dye allergy status; Z88.5 Allergy status to narcotic agent; Z88.0 Allergy status to penicillin; Z91.013 Allergy to seafood; Z82.49 Family history of ischemic heart disease and other diseases of the circulatory system; Z82.0 Family history of epilepsy and other diseases of the nervous system; Z83.3 Family history of diabetes mellitus; Z80.1 Family history of malignant neoplasm of trachea, bronchus and lung
CPT/HCPCS: 36415; 36569; 51702; 71046; 76937; 77001; 80048; 80053; 80061; 80202; 81003; 82550; 82553; 82803; 83036; 83880; 84484; 85025; 85610; 85730; 87040; 87086; 93005; 96374; 96375; 99285

== ENCOUNTER 2018-02-01 15:42 | Observation (INO) | payer MEDICARE, OTHER ==
[2018-02-01 17:01] LABS: Anisocytosis Slight; Basophils # (A) 0.1 k/uL (0-0.2); Basophils % (A) 1 %; Eosinophils # (A) 0.4 k/uL (0-0.7); Eosinophils % (A) 8 %; HCT 34.9 % (39.0-53.0); Hypochromasia Moderate; Lymphocytes % (A) 19 %; MCH 28.1 pg (25.0-35.0); MCHC 31.5 g/dL (31.0-37.0); MCV 89.2 fL (80.0-100.0); Mean Platelet Volume 6.9; Monocytes # (A) 0.3 k/uL (0-1.0); Monocytes % (A) 5 %; Neutrophils # (A) 3.6 k/uL (1.3-7.7); Neutrophils % (A) 66 %; Platelet Count 325 k/uL (150-450); RBC 3.91 m/uL (4.30-5.90); RDW 18.3 % (11.5-15.5); WBC 5.4 k/uL (3.8-10.6)
--- NOTE | 2018-02-01 17:06 | XR ---
EXAMINATION TYPE: XR chest 2V DATE OF EXAM: 02/01/2018 COMPARISON: 01/05/2018 HISTORY: Chest pain TECHNIQUE: Frontal and lateral views of the chest are obtained. FINDINGS: Heart is enlarged. There is no heart failure. Costophrenic angles are clear. There is left axillary pacemaker with the lead tips in the right ventricle. There is slight blunting of the right costophrenic angle. The bony thorax is intact. IMPRESSION: Cardiomegaly. Small right pleural effusion. No overt heart failure. Pulmonary vasculari ty appears improved compared to last exam.
[2018-02-01 17:10] LABS: INR 1.2 (<1.2); Partial Thromboplastin Time 23.8 sec (22.0-30.0); Prothrombin Time 11.3 sec (9.0-12.0)
--- NOTE | 2018-02-01 17:13 | ED ---
General Adult HPI - General Chief complaint: Chest Pain Stated complaint: dizziness Time Seen by Provider: 02/01/18 15:58 Source: patient, EMS, RN notes reviewed, Caregiver Mode of arrival: EMS Limitations: no limitations - History of Present Illness Initial comments: 42-year-old male presenting for evaluation of right-sided facial pain, right upper extremity pain, and right lower extremity pain. Patient's symptoms began at 1:30. Denies weakness. He does report headache. Patient states he has had similar symptoms in the past which were diagnosed as TIA. He denies any central chest pain. Denies difficulty breathing. Denies focal weakness or numbness. His complaint is pain which is headache, right facial pain, and right upper and lower extremity pain. - Related Data Home Medications Medication Instructions Recorded Confirmed ARIPiprazole [ARIPiprazole Odt] 15 mg PO HS@209910/27/17 02/01/18 Clopidogrel [Plavix] 75 mg PO DAILY@0812/03/17 02/01/18 Ferrous Sulfate [Iron (65 MG 325 mg PO BID@0800,1700 12/03/17 02/01/18 Elemental)] Metoprolol Succinate [Toprol XL] 25 mg PO DAILY@0812/03/17 02/01/18 Primidone [Mysoline] 500 mg PO BID@0800,209912/03/17 02/01/18 Sertraline [Zoloft] 200 mg PO DAILY@0800 12/05/17 02/01/18 Ondansetron [Zofran] 4 mg PO Q8HR PRN 12/30/17 02/01/18 Rosuvastatin [Crestor] 20 mg PO HS@209912/30/17 02/01/18 Apixaban [Eliquis] 5 mg PO BID@0800,1700 02/01/18 02/01/18 Bisacodyl 10 mg RECTAL DAILY PRN 02/01/18 02/01/18 Digoxin [Digitek] 125 mcg PO DAILY@0802/01/18 02/01/18 Gabapentin [Neurontin] 400 mg PO TID@0600,1400,209902/01/18 02/01/18 INSULIN LISPRO (HumaLOG) [humaLOG] 7 unit SQ AC-TID 02/01/18 02/01/18 Insulin Glargine [Lantus] 22 unit SQ HS@2100 02/01/18 02/01/18 Lisinopril [Zestril] 5 mg PO DAILY@0800 02/01/18 02/01/18 Mag Hydrox/Al Hydrox/Simeth 15 ml PO Q6H PRN 02/01/18 02/01/18 [Maalox] Magnesium Hydroxide [Milk of 2,400 mg PO DAILY PRN 02/01/18 02/01/18 Magnesia] Na Phos,M-B/Na Phos,Di-Ba [Fleet 133 ml RECTAL DAILY PRN 02/01/18 02/01/18 Adult] Omeprazole [PriLOSEC] 20 mg PO AC-BID@0800,1700 02/01/18 02/01/18 Sennosides [Senokot] 8.6 mg PO DAILY@0800 02/01/18 02/01/18 Spironolactone [Aldactone] 25 mg PO DAILY@0800 02/01/18 02/01/18 Torsemide [Demadex] 40 mg PO DAILY@0600 02/01/18 02/01/18 traMADol HCl [Ultram] 50 mg PO Q6H PRN 02/01/18 02/01/18 Previous Rx's Medication Instructions Recorded Nitroglycerin Sl Tabs [Nitrostat] 0.4 mg SUBLINGUAL Q5M PRN tab 07/27/17 Acetaminophen Tab [Tylenol] 650 mg PO Q4HR PRN tab 01/06/18 Allergies Allergy/AdvReac Type Severity Reaction Status Date / Time erythromycin base Allergy Severe Rash/Hives Verified 02/01/18 16:58 [Erythromycin Base] cephalexin monohydrate Allergy Unknown Rash/Hives Verified 02/01/18 16:58 [From Keflex] codeine Allergy Unknown Unknown Verified 02/01/18 16:58 meclizine Allergy Unknown Unknown Verified 02/01/18 16:58 Penicillins Allergy Unknown Rash/Hives Verified 02/01/18 16:58 shellfish derived Allergy Unknown Anaphylaxis Verified 02/01/18 16:58 Fish Containing Products Allergy Anaphylaxis Verified 02/01/18 16:58 [Fish] Iodinated Contrast- Oral and Allergy Anaphylaxis Verified 02/01/18 16:58 IV Dye naproxen AdvReac Unknown Compromises Verified 02/01/18 16:58 Kidney Function atorvastatin calcium AdvReac Myalgia Verified 02/01/18 16:58 [From Lipitor] glucosamine AdvReac Unknown Verified 02/01/18 16:58 hydrocodone [From [place]] AdvReac Rapid Verified 02/01/18 16:58 Heart Rate Review of Systems ROS Statement: Those systems with pertinent positive or pertinent negative responses have been documented in the HPI. ROS Other: All systems not noted in ROS Statement are negative. Past Medical History Past Medical History: Asthma, Coronary Artery Disease (CAD), Chest Pain / Angina , Heart Failure, CVA/TIA, Diabetes Mellitus, GERD/Reflux, Hyperlipidemia, Hypertension, Myocardial Infarction ([place]), Osteoarthritis (OA), Pneumonia, Skin Disorder, Sleep Apnea/CPAP/BIPAP Additional Past Medical History / Comment(s): multiple vessel CAD, ischemic cardiomyopathy, diabetic neuropathy bilateral hands and feet, hypertensive cardiovascular disease, SHELIA with no device, chronic gastritis, degenerative disc disease, chronic back pain, depression with hx of suicide attempts, gastroparesis, psoriasis, UTI, migraines, TIA, PUD, hiatal hernia, L rotator cuff tear, bronchitis, pseudoaneurysm L groin post procedure. Last Myocardial Infarction Date:: May 2017 History of Any Multi-Drug Resistant Organisms: MRSA Date of last positivie culture/infection: 11/05/2017 (Culture done at 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 Date of Last Stent Placement:: 05/25/2017 Type of Cardiac Device: Biventricular Pacemaker, AICD Device Placement Date:: 09/19/15 Past Psychological History: Anxiety, Depression, PTSD Smoking Status: Never smoker Past Alcohol Use History: None Reported Past Drug Use History: None Reported - Past Family History Mother Family Medical History: Coronary Artery Disease (CAD), Myocardial Infarction ([place] ) Additional Family Medical History / Comment(s): 7 [place] and faulty heart valve. Pt does not know the age when mother had her [place]'s. Father History Unknown: Yes Additional Family Medical History / Comment(s): Does not know who father is. Brother(s) Family Medical History: Cancer, Congestive Heart Failure (CHF), Myocardial Infarction ([place]) Additional Family Medical History / Comment(s): Parkinsons. Pt does not know at what age his brother had an [place]. Patient's other brother has lung CA Patient has Family Medical History: No Reported History Additional Family Medical History / Comment(s): There is a strong family history for heart disease, hypertension, and diabetes. General Exam Limitations: no limitations General appearance: alert, in no apparent distress Head exam: Present: atraumatic, normocephalic Eye exam: Present: normal appearance, PERRL, EOMI ENT exam: Present: normal exam Neck exam: Present: normal inspection. Absent: tenderness, meningismus Respiratory exam: Present: normal lung sounds bilaterally. Absent: respiratory distress, wheezes Cardiovascular Exam: Present: regular rate, normal rhythm GI/Abdominal exam: Present: soft. Absent: distended, tenderness, guarding Extremities exam: Present: normal inspection, normal capillary refill. Absent: pedal edema, calf tenderness Neurological exam: Present: alert, oriented X3, CN II-XII intact, other (NIH 0) . Absent: motor sensory deficit Psychiatric exam: Present: normal affect, normal mood Skin exam: Present: warm, dry, intact. Absent: cyanosis, diaphoretic Course Vital Signs 02/01/18 15:49 Temperature 98.2 F Pulse Rate 97 Respiratory 18 Rate Blood Pressure 122/58 O2 Sat by Pulse 100 Oximetry EKG Findings - EKG Comments: EKG Findings:: EKG: Paced rhythm, left atrial enlargement, low voltage, rate of 93, DE interval 184, QRS duration 86, QTC 432, no ST segment elevation Medical Decision Making - Medical Decision Making 42-year-old male presenting for right-sided headache, right arm pain and right leg pain. NIH is 0. Patient states he has had similar episode in the past which was diagnosed as TIA. He has no focal weakness or numbness. He is on aspirin and Plavix secondary to CAD. Denies any central chest pain or dyspnea. Workup in the emergency department including head CT which is negative for acute renal hemorrhage, cerebral atrophy, no acute findings. Laboratory studies reveal normal white blood cell count, hemoglobin 11 which is stable. Normal CMP, troponin is positive however it is down trending for this patient at 0.051. Chest x-ray shows improved aeration compared to previous, no heart failure. Patient is given aspirin in the emergency department. Given the history stated by the patient that this is similar to previous TIA he will be placed in observation for neurology consultation. - Lab Data Result diagrams: 02/01/18 16:49 02/01/18 16:49 Lab Results 02/01/18 02/01/18 02/01/18 Range/Units 16:49 16:49 16:49 WBC 5.4 (3.8-10.6) k/uL RBC 3.91 L (4.30-5.90) m/uL Hgb 11.0 L (13.0-17.5) gm/dL Hct 34.9 L (39.0-53.0) % MCV 89.2 (80.0-100.0) fL MCH 28.1 (25.0-35.0) pg MCHC 31.5 (31.0-37.0) g/dL RDW 18.3 H (11.5-15.5) % Plt Count 325 (150-450) k/uL Neutrophils % 66 % Lymphocytes % 19 % Monocytes % 5 % Eosinophils % 8 % Basophils % 1 % Neutrophils # 3.6 (1.3-7.7) k/uL Lymphocytes # 1.0 (1.0-4.8) k/uL Monocytes # 0.3 (0-1.0) k/uL Eosinophils # 0.4 (0-0.7) k/uL Basophils # 0.1 (0-0.2) k/uL Hypochromasia Moderate Anisocytosis Slight PT (9.0-12.0) sec INR (<1.2) APTT (22.0-30.0) sec Sodium 136 L (137-145) mmol/L Potassium 4.5 (3.5-5.1) mmol/L Chloride 102 (98-107) mmol/L Carbon Dioxide 25 (22-30) mmol/L Anion Gap 9 mmol/L BUN 26 H (9-20) mg/dL Creatinine 0.75 (0.66-1.25) mg/dL Est GFR (CKD-EPI)AfAm >90 (>60 ml/min/1.73 sqM) Est GFR (CKD-EPI)NonAf >90 (>60 ml/min/1.73 sqM) Glucose 99 (74-99) mg/dL Calcium 8.6 (8.4-10.2) mg/dL Magnesium 2.0 (1.6-2.3) mg/dL Total Bilirubin 0.4 (0.2-1.3) mg/dL AST 31 (17-59) U/L ALT 37 (21-72) U/L Alkaline Phosphatase 221 H (38-126) U/L Total Creatine Kinase 44 L (55-170) U/L CK-MB (CK-2) 1.6 (0.0-2.4) ng/mL CK-MB (CK-2) Rel Index 3.6 Troponin I 0.051 H* (0.000-0.034) ng/mL Total Protein 6.0 L (6.3-8.2) g/dL Albumin 3.2 L (3.5-5.0) g/dL 02/01/18 Range/Units 16:49 WBC (3.8-10.6) k/uL RBC (4.30-5.90) m/uL Hgb (13.0-17.5) gm/dL Hct (39.0-53.0) % MCV (80.0-100.0) fL MCH (25.0-35.0) pg MCHC (31.0-37.0) g/dL RDW (11.5-15.5) % Plt Count (150-450) k/uL Neutrophils % % Lymphocytes % % Monocytes % % Eosinophils % % Basophils % % Neutrophils # (1.3-7.7) k/uL Lymphocytes # (1.0-4.8) k/uL Monocytes # (0-1.0) k/uL Eosinophils # (0-0.7) k/uL Basophils # (0-0.2) k/uL Hypochromasia Anisocytosis PT 11.3 (9.0-12.0) sec INR 1.2 H (<1.2) APTT 23.8 (22.0-30.0) sec Sodium (137-145) mmol/L Potassium (3.5-5.1) mmol/L Chloride (98-107) mmol/L Carbon Dioxide (22-30) mmol/L Anion Gap mmol/L BUN (9-20) mg/dL Creatinine (0.66-1.25) mg/dL Est GFR (CKD-EPI)AfAm (>60 ml/min/1.73 sqM) Est GFR (CKD-EPI)NonAf (>60 ml/min/1.73 sqM) Glucose (74-99) mg/dL Calcium (8.4-10.2) mg/dL Magnesium (1.6-2.3) mg/dL Total Bilirubin (0.2-1.3) mg/dL AST (17-59) U/L ALT (21-72) U/L Alkaline Phosphatase (38-126) U/L Total Creatine Kinase (55-170) U/L CK-MB (CK-2) (0.0-2.4) ng/mL CK-MB (CK-2) Rel Index Troponin I (0.000-0.034) ng/mL Total Protein (6.3-8.2) g/dL Albumin (3.5-5.0) g/dL Disposition Clinical Impression: TIA (transient ischemic attack) Disposition: ADMITTED IP TO THIS [facility] Condition: Stable Is patient prescribed a controlled substance at d/c from ED?: No Referrals: Junie New MD [Primary Care Provider] - 1-2 days Decision to Admit Reason: Admit from EC Decision Date: 02/01/18 Decision Time: 18:06
[2018-02-01 17:26] LABS: ALT 37 U/L (21-72); AST 31 U/L (17-59); Albumin 3.2 g/dL (3.5-5.0); Alkaline Phosphatase 221 U/L (38-126); Anion Gap 9 mmol/L; Blood Urea Nitrogen 26 mg/dL (9-20); Calcium 8.6 mg/dL (8.4-10.2); Carbon Dioxide 25 mmol/L (22-30); Chloride 102 mmol/L (98-107); Glucose 99 mg/dL (74-99); Potassium 4.5 mmol/L (3.5-5.1); Sodium 136 mmol/L (137-145); Total Bilirubin 0.4 mg/dL (0.2-1.3)
--- NOTE | 2018-02-01 17:29 | CT ---
EXAMINATION TYPE: CT brain wo con DATE OF EXAM: 02/01/2018 COMPARISON: Dizziness and weakness HISTORY: 12/12/2017 CT DLP: mGycm. Automated Exposure Control for Dose Reduction was Utilized. TECHNIQUE: CT scan of the head is performed without contrast. FINDINGS: Cerebral atrophy. No mass effect nor midline shift. There is no sign of intracranial hemo rrhage. The calvarium is intact. Ventricles have normal size. IMPRESSION: Cerebral atrophy. No acute intracranial abnormality. No change.
[2018-02-01 17:36] LABS: Creatine Kinase MB 1.6 ng/mL (0.0-2.4)
[2018-02-01 17:54] LABS: Troponin I 0.051 ng/mL (0.000-0.034)
[2018-02-01] MEDS ORDERED: NITROGLYCERIN SL TABS 0.4 MG TAB SUBLINGUAL PRN (18:34)
[2018-02-01] MEDS ORDERED: ACETAMINOPHEN TAB 325 MG TAB PO PRN (18:34)
[2018-02-01] MEDS ORDERED: MAGNESIUM HYDROXIDE 2,400 MG/10 ML CUP PO PRN (18:34)
[2018-02-01] MEDS ORDERED: ONDANSETRON 4 MG TAB PO PRN (18:34)
[2018-02-01] MEDS ORDERED: MAG HYDROX/AL HYDROX/SIMETH 30 ML CUP PO PRN (18:34)
[2018-02-01] MEDS ORDERED: NA PHOS,M-B/NA PHOS,DI-BA 133 ML ENEMA RECTAL PRN (18:34)
[2018-02-01] MEDS ORDERED: BISACODYL 10 MG SUPP RECTAL PRN (18:34)
[2018-02-01] MEDS ORDERED: diphenhydrAMINE 25 MG CAP PO PRN (18:38)
[2018-02-01] MEDS ORDERED: MELATONIN 3 MG TABLET PO PRN (18:38)
[2018-02-01] MEDS: traMADol 50 MG TAB PO PRN (19:04)
[2018-02-01] MEDS: ASPIRIN 325 MG TAB PO STA ×2 (19:05→19:06)
[2018-02-01 19:17] LABS: Appearance,Urine Clear (Clear); Bilirubin,Urine Negative (Negative); Blood,Urine Negative (Negative); Color,Urine Light Yellow; Glucose,Urine (UA) Negative (Negative); Ketones,Urine Negative (Negative); Leukocyte Esterase,Urine Negative (Negative); Nitrite,Urine Negative (Negative); Protein,Urine Negative (Negative); Specific Gravity,Urine 1.008 (1.001-1.035); Urobilinogen,Urine <2.0 mg/dL (<2.0)
[2018-02-01 19:27] LABS: Amphetamine Screen,Urine Not Detected (NotDetected); Barbiturate Screen,Urine Detected (NotDetected); Benzodiazepines Screen,Urine Not Detected (NotDetected); Cocaine Screen,Urine Not Detected (NotDetected); Methadone Screen, Urine Not Detected (NotDetected); Opiate Screen,Urine Not Detected (NotDetected); Oxycodone Screen, Urine Not Detected (NotDetected); Phencyclidine Screen,Urine Not Detected (NotDetected); Tricyclic Antidepressant,Urine Not Detected (NotDetected); Urn Cannabinoid Scrn Not Detected (NotDetected)
--- NOTE | 2018-02-01 19:29 | HP ---
HISTORY AND PHYSICAL CHIEF COMPLAINTS: Weakness of the right side of the right upper and lower limbs. HISTORY OF PRESENT ILLNESS: This 42-year-old gentleman with a past medical history of CAD, history of CHF, CVA, TIA, diabetes, hypertension, hyperlipidemia, history of myocardial infarction, history of cardiomyopathy, ejection fraction 20 to 25%, being followed by Dr. Junie New in the outpatient setting was admitted recently in [facility] and subsequently the patient was transferred to [facility] for F rehab at this time. The patient also spent about 2 weeks in [facility] with Lasix drip and other medication for heart failure clinic, but currently the patient is complaining of weakness of the right side of the right upper and lower limbs with some right facial pain. Symptoms started 1:30 a.m. and the patient had TIA in the past. Because of concerns, the patient came to [facility] and admitted for further evaluation and treatment. The patient also complains of difficulty and weakness of the right pinch action also. There is no history of fever, rigors, chills. No headache, loss of consciousness. The patient had significant itching in both legs. PAST MEDICAL HISTORY: History of asthma, CAD, CHF, CVA, TIA, diabetes type 2, GERD, anxiety, depression, history of DJD, history of AICD, cardiomyopathy. MEDICATIONS: Prior to prior to admission include home medications are reviewed which includes: 1. Ultram 50 mg q.6 p.r.n. 2. Demadex 40 mg p.o. daily. 3. Aldactone 25 mg daily. 4. Zoloft 200 mg daily. 5. Senokot 8.6 mg daily. 6. Crestor 20 mg q.h.s. 7. Mysoline 500 mg p.o. b.i.d. 8. Zofran 4 mg q.8h p.r.n. 9. Prilosec 20 mg a.c. b.i.d. 10.Nitrostat 0.4 mg sublingual p.r.n. 11.Fleet daily p.r.n. 12.Toprol-XL 25 mg daily. 13.Milk of magnesia 2.4 g daily p.r.n. 14.Maalox 15 mL q.6 p.r.n. 15.Zestril 5 mg p.o. daily. 16.Lantus 22 units subcu q.h.s. 17.Humalog 7 units a.c. t.i.d. 18.Neurontin 400 mg p.o. t.i.d. 19.Iron 320 mg p.o. b.i.d. 20.Digitek 125 mcg p.o. daily. 21.Plavix 75 mg p.o. daily. 22.Bisacodyl 20 mg daily p.r.n. 23.Eliquis 2.5 mg p.o. b.i.d. 24.Tylenol 650 q.4h p.r.n. 25.Abilify 50 mg p.o. q.h.s. ALLERGIES: MULTIPLE ALLERGIES OF ERYTHROMYCIN, CODEINE, MECLIZINE, PENICILLIN, SHELLFISH, IODINATED CONTRAST, NAPROSYN, NITROSTAT, GLUCOSAMINE AND NORCO. FAMILY HISTORY: History of myocardial infarction and coronary artery disease in the family. SOCIAL HISTORY: History of smoking. No alcohol intake. REVIEW OF SYSTEMS: ENT: No diminished hearing or vision. CARDIOVASCULAR: As mentioned. RESPIRATORY: As mentioned earlier. GI: No nausea. : No dysuria. NERVOUS SYSTEM: No numbness or weakness. ALLERGY/IMMUNOLOGY: As mentioned earlier. MUSCULOSKELETAL: As mentioned earlier. HEMATOLOGY/ONCOLOGY: No history of anemia. ENDOCRINE: History of diabetes. CONSTITUTIONAL: As mentioned earlier. DERMATOLOGY: Negative. RHEUMATOLOGY: Negative. PSYCHIATRY: As mentioned earlier. PHYSICAL EXAMINATION: Alert and oriented x3. Pulse is 97, blood pressure 110/50, respiration 18, temperature 98.2, pulse ox 100 percent on room air. HEENT: Conjunctivae normal. Oral mucosa moist. Neck is no jugular venous distention. No carotid bruit. No lymph node enlargement. CARDIOVASCULAR: S1, S2. Ejection systolic murmur. RESPIRATORY: Breath sounds diminished in the bases. A few scattered rhonchi and crackles. ABDOMEN: Soft, obese. LEGS: Minimal bilateral leg edema present. NERVOUS SYSTEM: Higher functions as mentioned earlier, no facial deviation. Minimal weakness on the right upper and lower limbs noted. SKIN: Multiple excoriations. JOINTS: No active deforming joint. LYMPHATIC: No lymphadenopathy in the neck, axillae, groin. LABS: WBC 5.9, hemoglobin 11, sodium 136 and troponin 0.051. The CT scan of the brain showed cerebral atrophy. No acute intracranial abnormality. ASSESSMENT: 1. Weakness of the right side of the body with possible acute transient ischemic attack. 2. Congestive heart failure with chronic systolic dysfunction, ejection fraction 20 to 25%. 3. Ischemic cardiomyopathy possibly. 4. History of bilateral leg cellulitis and MRSA. 5. History of diabetes type 2. 6. History of gastroesophageal reflux disease. 7. Anxiety, depression, posttraumatic stress disorder. 8. Hypertension. 9. History of pneumonia. 10.History of multivessel coronary artery disease. 11.History of appendectomy. 12.History of coronary artery disease, stent. RECOMMENDATIONS AND DISCUSSION: In this 42-year-old gentleman who presented with multiple complex medical issues, we will monitor the patient closely. Continue the current management and symptomatic treatment. Will initiate antiplatelet agents. Obtain Cardiology and Neurology consultation. Full neurovascular workup. PT, OT evaluation. We will obtain neuro checks also. Prognosis guarded because of multiple complex medical issues. Further recommendations to follow. Copy of dictation being forwarded to Dr. Junie New, who is the primary physician. MMAMBROSEL / CHRISTINEN: [id number] /
--- NOTE | 2018-02-01 20:05 | US ---
EXAMINATION TYPE: US carotid duplex BILAT DATE OF EXAM: 02/01/2018 COMPARISON: 06/20/2016 CLINICAL HISTORY: stroke. TIA EXAM MEASUREMENTS: RIGHT: Peak Systolic Velocity (PSV) cm/sec ----- Right CCA: 55.1 ----- Right ICA: 72.6 ----- Right ECA: 69.7 ICA/CCA ratio: 1.3 RIGHT: End Diastole cm/sec ----- Right CCA: 18.8 ----- Right ICA: 33.3 ----- Right ECA: 8.6 LEFT: Peak Systolic Velocity (PSV) cm/sec ----- Left CCA: 63.8 ----- Left ICA: 62.4 ----- Left ECA: 81.3 ICA/CCA ratio: 1.0 LEFT: End Diastole cm/sec ----- Left CCA: 15.8 ----- Left ICA: 30.4 ----- Left ECA: 10.3 VERTEBRALS (direction of flow): Right Vertebral: Antegrade Left Vertebral: Antegrade Rhythm: Normal No significant stenosis seen IMPRESSION: There is antegrade flow in the vertebral arteries. The images and measurements suggest c lose to 0% stenosis in both internal carotid arteries. No adverse change. Criteria for Assigning % of Stenosis / Diameter reduction (Estimation based on the indirect measurements of the internal carotid artery velocities (ICA PSV). 1. Normal (no stenosis)=ICA PSV < 125 cm/s: ratio < 2.0: ICA EDV<40 cm/s. 2. Less than 50% stenosis=ICA PSV < 125 cm/s: ratio < 2.0: ICA EDV<40 cm/s. 3. 50 to 69% stenosis=ICA PSV of 125 to 230 cm/s: ration 2.0 ? 4.0: ICA EDV 40-100 cm/s. 4. Greater than 70% stenosis to near occlusion= ICA PSV > 230 cm/s: ratio > 4.0: ICA EDV > 100 cm/s. 5. Near occlusion= ICA PSV velocities may be low or undetectable: variable ratio and ICA EDV. 6. Total occlusion=unable to detect flow.
[2018-02-01] MEDS ORDERED: INSULIN DETEMIR 100 UNIT/ML 10 ML VIAL SQ SCH (21:00)
[2018-02-02] MEDS: INSULIN ASPART 100 UNIT/ML 1 ML 10 ML VIAL SQ SCH ×5 (00:12→21:03)
[2018-02-02] MEDS: ROSUVASTATIN 20 MG PO SCH ×2 (00:12→21:03)
[2018-02-02 00:13] LABS: Glucose,Whole Blood 99 mg/dL (75-99)
[2018-02-02] MEDS: traMADol 50 MG TAB PO PRN ×2 (00:57→19:57)
[2018-02-02] MEDS: GABAPENTIN 400 MG CAP PO SCH ×4 (00:57→20:06)
[2018-02-02] MEDS: SODIUM CHLORIDE 0.9% 1,000 ML IV SCH ×2 (00:58→20:07)
[2018-02-02] MEDS: PRIMIDONE 250 MG TAB PO SCH ×3 (01:20→20:06)
[2018-02-02] MEDS: ARIPiprazole 15 MG TAB PO SCH ×2 (01:21→20:06)
[2018-02-02 04:07] LABS: Glucose,Whole Blood 62 mg/dL (75-99)
[2018-02-02 04:14] LABS: Glucose,Whole Blood 93 mg/dL (75-99)
[2018-02-02 06:10] LABS: Glucose,Whole Blood 128 mg/dL (75-99)
[2018-02-02] MEDS: TORSEMIDE 20 MG TAB PO SCH (06:52)
[2018-02-02] MEDS ORDERED: INSULIN ASPART 100 UNIT/ML 1 ML 10 ML VIAL SQ SCH (07:30)
[2018-02-02 07:47] LABS: Anisocytosis Slight; Basophils # (A) 0.1 k/uL (0-0.2); Basophils % (A) 1 %; Eosinophils # (A) 0.6 k/uL (0-0.7); Eosinophils % (A) 10 %; HCT 40.8 % (39.0-53.0); HGB 12.2 gm/dL (13.0-17.5); Hypochromasia Marked; INR 1.2 (<1.2); Lymphocytes # (A) 1.2 k/uL (1.0-4.8); Lymphocytes % (A) 21 %; MCH 27.5 pg (25.0-35.0); MCHC 29.8 g/dL (31.0-37.0); MCV 92.2 fL (80.0-100.0); Mean Platelet Volume 6.5; Monocytes # (A) 0.3 k/uL (0-1.0); Monocytes % (A) 6 %; Neutrophils # (A) 3.4 k/uL (1.3-7.7); Neutrophils % (A) 60 %; Platelet Count 321 k/uL (150-450); Prothrombin Time 11.6 sec (9.0-12.0); RBC 4.42 m/uL (4.30-5.90); RDW 18.1 % (11.5-15.5); WBC 5.6 k/uL (3.8-10.6)
[2018-02-02 07:57] LABS: Anion Gap 11 mmol/L; Calcium 9.1 mg/dL (8.4-10.2); Carbon Dioxide 22 mmol/L (22-30); Chloride 105 mmol/L (98-107); Cholesterol 139 mg/dL (<200); Glucose 106 mg/dL (74-99); HDL Cholesterol 34 mg/dL (40-60); LDL Cholesterol,Calculated 64 mg/dL (0-99); Sodium 138 mmol/L (137-145); Triglycerides 207 mg/dL (<150)
[2018-02-02 07:59] LABS: Blood Urea Nitrogen 20 mg/dL (9-20); Potassium 4.2 mmol/L (3.5-5.1)
[2018-02-02] MEDS ORDERED: CLOPIDOGREL 75 MG TAB PO SCH (09:00)
[2018-02-02] MEDS: APIXABAN 5 MG TAB PO SCH ×2 (09:40→16:32)
[2018-02-02] MEDS: METOPROLOL SUCCINATE (ER) 25 MG TAB.ER.24H PO SCH (09:40)
[2018-02-02] MEDS: SENNOSIDES 8.6 MG TAB PO SCH (09:40)
[2018-02-02] MEDS: SERTRALINE 100 MG TAB PO SCH (09:40)
[2018-02-02] MEDS: LISINOPRIL 5 MG TAB PO SCH (09:40)
[2018-02-02] MEDS: PANTOPRAZOLE 40 MG TABLET PO SCH ×2 (09:41→16:32)
[2018-02-02] MEDS: FERROUS SULFATE 325 MG TAB PO SCH ×2 (09:41→16:32)
[2018-02-02] MEDS: DIGOXIN 125 MCG TAB PO SCH (09:41)
[2018-02-02] MEDS: CLOPIDOGREL 75 MG TAB PO SCH (09:41)
[2018-02-02 11:52] LABS: Glucose,Whole Blood 136 mg/dL (75-99)
[2018-02-02] MEDS ORDERED: ASPIRIN 325 MG TAB PO SCH (12:00)
[2018-02-02] MEDS: SPIRONOLACTONE 25 MG TAB PO SCH (12:31)
--- NOTE | 2018-02-02 14:48 | PN ---
PROGRESS NOTE DATE OF SERVICE: 02/02/2018 This is a 42-year-old gentleman with a past medical history of multiple medical problems, was admitted with weakness of the right side of the body, possible TIA. Patient is being closely monitored. At this time Carotid Doppler has been ordered which showed 0% stenosis per report. No chest pain. No palpitations. No fever. PHYSICAL EXAM: Alert and oriented x3. Pulse 98, blood pressure 118/70, respiration 16, temperature is normal, pulse ox 100% on room air. HEENT: Conjunctivae normal. NECK: No jugular venous distension. CARDIOVASCULAR: S1, S2, muffled. RESPIRATORY: Breath sounds diminished at the bases. No rhonchi. No crackles. Abdomen is few rhonchi no crackles abdomen is soft, nontender. LEGS: No edema. NERVOUS SYSTEM: No focal deficits. LABS: WBC is 5.6, hemoglobin is 12.2, INR is 1.2. ASSESSMENT: 1. Weakness of the right side of the body with possible acute transient ischemic attack involving the left hemisphere. 2. Congestive heart failure with chronic systolic dysfunction, ejection fraction 20% to 25%. 3. Ischemic cardiomyopathy, possibly. 4. History of bilateral leg cellulitis and methicillin-resistant Staphylococcus aureus. 5. History of diabetes type 2. 6. History of gastroesophageal reflux disease. 7. Anxiety, depression, posttraumatic stress disorder. 8. Hypertension. 9. History of pneumonia. 10.History of multivessel coronary artery disease. 11.Appendectomy. 12.Coronary artery disease, stent. RECOMMENDATION: Recommend to continue current medications, continue with the antiplatelet agents and neurology evaluation. PT, OT evaluation. Increase ambulation. Further recommendations to follow. MMODL / IJN: [id number] /
--- NOTE | 2018-02-02 16:27 | CONS ---
CONSULTATION This is a 42-year-old gentleman who has been in the hospital on multiple occasions. He has history of ischemic cardiomyopathy. Used to see a doctor in [place]. Now sees a doctor in the [facility]. This gentleman is known to have ischemic cardiomyopathy with ejection fraction that is in the 25-30 percent range and he also has an ICD in place. He used to see Dr. Peres in [place], but now sees a doctor at [facility]. He came into the hospital this time with complaints of what he has indicated as a discomfort in the right side of the face, a burning sensation, then he felt tingly. He felt some weakness on the right facial side and also right side of the body, but at this time, there was no evident weakness. He is being evaluated by Neurology. Cardiac-frankel, he has no angina, he is resting comfortably. No evidence of any clinical heart failure at this time. He is resting comfortably without any symptoms. PAST MEDICAL HISTORY: 1. Multivessel CAD, ischemic cardiomyopathy with previous PCI. 2. Hypertension. 3. Hyperlipidemia. 4. History of AICD for primary prevention which is a biventricular ICD. 5. History of other noncardiac surgery as well. MEDICATIONS: At home include aspirin 81 daily, Plavix 75 mg daily, lisinopril 5 mg daily, metoprolol succinate 25 mg daily, he takes Zoloft, insulin, midodrine, Zofran, rosuvastatin and also takes tramadol. ALLERGIES: HE IS ALLERGIC TO MULTIPLE MEDICATIONS IN THE FORM OF ERYTHROMYCIN, PENICILLIN, MECLIZINE, AND IODINE CONTRAST AND THERE IS A QUESTION OF SOME LIPITOR ALLERGY. EXAMINATION: Blood pressure is 118/70, pulse rate is 70 per minute and regular. HEENT: Unremarkable. Fundus was not examined by me. NECK: Supple. There is JVD of 1 cm. No carotid bruit. Heart exam reveals S1, S2. Distant sounds are audible with a short systolic murmur is noted. Lungs are clear. Abdomen is soft, nontender. Lower extremities reveal diminished pulses. Central nervous system limited assessment does not reveal any focal deficits. EKG revealed sinus rhythm with poor R-wave progression. There is evidence of atrial sensed ventricular paced rhythm with evidence of old anterior [place], nonspecific ST-T changes. IMPRESSION: 1. Probable transient ischemic attack being evaluated by Neurology. 2. History of ischemic cardiomyopathy without overt heart failure. 3. History of prior PCI. 4. History of prior ICD. RECOMMENDATIONS: From a cardiac standpoint, I would recommend that we resume all his medications. No aggressive intervention is necessary from a cardiac standpoint at this time. He has no overt angina or any overt heart failure at this time. He has multiple comorbid conditions including hypertension, diabetes, hyperlipidemia, and also there is a question of TIA at this time. I would recommend that he be evaluated from a neurology standpoint. No aggressive intervention necessary from a cardiac standpoint. I will reduce his aspirin from 325 to 81 mg daily. I will be happy to re-evaluate the patient if he has any active cardiac issues. Thank you very much for the consult. BEATRIZ / TATIANA: [id number] /
[2018-02-02 16:30] LABS: Glucose,Whole Blood 174 mg/dL (75-99)
[2018-02-02 20:29] LABS: Glucose,Whole Blood 228 mg/dL (75-99)
[2018-02-02 20:43] LABS: Hemoglobin A1C 6.4 % (4.0-6.0)
--- NOTE | 2018-02-02 20:43 | P.CNNES ---
History of Present Illness Consult date: 02/02/18 History of Present Illness: The patient is a 42-year-old right-handed white male who came to the emergency room via EMS from [facility] where he has been for the past few days. Prior to that he was at [facility] for 2 weeks with congestive heart failure. The patient has multiple medical comorbidities including coronary artery disease heart failure diabetes hypertension and sleep apnea asthma and history of TIA. Patient states he was doing physical therapy and he developed right face pain and right-sided numbness from the head to the toe. He denied any neck pain or back pain. His lasted for a few hours up until the time he came to the emergency room here at [facility]. He is to experience some cramping pain in the right hand today. Also describes an ache in the right side particularly the leg. He has had this similar ache while he was at [facility]. He had aching in both legs at [facility]. But he states the right leg was paining more. At [facility] he was found to have DVT in the left leg. The patient has a history of right-sided weakness status post stroke 5 years ago. Ever since that stroke is had intermittent episodes of pain and weakness and numbness in the right side which comes and goes. Arrival to the emergency room his NIH score was 0. Patient is on Plavix and Raquel quests. He had a CAT scan of the brain in the emergency room which showed cerebral atrophy. He had a carotid ultrasound which did not show any significant stenosis. Review of Systems Constitutional: Reports as per HPI Eyes: denies blurred vision, denies pain Ears, nose, mouth and throat: Denies headache, Denies sore throat Cardiovascular: Denies chest pain, Denies shortness of breath Respiratory: Denies cough Gastrointestinal: Denies abdominal pain, Denies diarrhea, Denies nausea, Denies vomiting Musculoskeletal: Denies myalgias Neurological: Denies numbness, Denies weakness Psychiatric: Denies anxiety, Denies depression Past Medical History Past Medical History: Asthma, Coronary Artery Disease (CAD), Chest Pain / Angina , Heart Failure, CVA/TIA, Diabetes Mellitus, GERD/Reflux, Hyperlipidemia, Hypertension, Myocardial Infarction (OK), Osteoarthritis (OA), Pneumonia, Skin Disorder, Sleep Apnea/CPAP/BIPAP Additional Past Medical History / Comment(s): multiple vessel CAD, ischemic cardiomyopathy, diabetic neuropathy bilateral hands and feet, hypertensive cardiovascular disease, SHELIA with no device, chronic gastritis, degenerative disc disease, chronic back pain, depression with hx of suicide attempts, gastroparesis, psoriasis, UTI, migraines, TIA, PUD, hiatal hernia, L rotator cuff tear, bronchitis, pseudoaneurysm L groin post procedure. 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 Date of Last Stent Placement:: 05/25/2017 Type of Cardiac Device: Biventricular Pacemaker, AICD Device Placement Date:: 09/19/15 Smoking Status: Never smoker - Past Family History Mother Family Medical History: Coronary Artery Disease (CAD), Myocardial Infarction (OK ) Additional Family Medical History / Comment(s): 7 OK and faulty heart valve. Pt does not know the age when mother had her OK's. Father History Unknown: Yes Additional Family Medical History / Comment(s): Does not know who father is. Brother(s) Family Medical History: Cancer, Congestive Heart Failure (CHF), Myocardial Infarction (OK) Additional Family Medical History / Comment(s): Parkinsons. Pt does not know at what age his brother had an OK. Patient's other brother has lung CA Patient has Family Medical History: No Reported History Additional Family Medical History / Comment(s): There is a strong family history for heart disease, hypertension, and diabetes. Medications and Allergies Home Medications Medication Instructions Recorded Confirmed Type Nitroglycerin Sl Tabs [Nitrostat] 0.4 mg SUBLINGUAL Q5M PRN tab 07/27/17 Rx ARIPiprazole [ARIPiprazole Odt] 15 mg PO HS@209910/27/17 02/01/18 History Clopidogrel [Plavix] 75 mg PO DAILY@0812/03/17 02/01/18 History Ferrous Sulfate [Iron (65 MG 325 mg PO BID@0800,1700 12/03/17 02/01/18 History Elemental)] Metoprolol Succinate [Toprol XL] 25 mg PO DAILY@0800 12/03/17 02/01/18 History Primidone [Mysoline] 500 mg PO BID@0800,209912/03/17 02/01/18 History Sertraline [Zoloft] 200 mg PO DAILY@0812/05/17 02/01/18 History Ondansetron [Zofran] 4 mg PO Q8HR PRN 12/30/17 02/01/18 History Rosuvastatin [Crestor] 20 mg PO HS@209912/30/17 02/01/18 History Acetaminophen Tab [Tylenol] 650 mg PO Q4HR PRN tab 01/06/18 02/01/18 Rx Apixaban [Eliquis] 5 mg PO BID@0800,1700 02/01/18 02/01/18 History Bisacodyl 10 mg RECTAL DAILY PRN 02/01/18 02/01/18 History Digoxin [Digitek] 125 mcg PO DAILY@0802/01/18 02/01/18 History Gabapentin [Neurontin] 400 mg PO TID@0600,1400,209902/01/18 02/01/18 History INSULIN LISPRO (HumaLOG) [humaLOG] 7 unit SQ AC-TID 02/01/18 02/01/18 History Insulin Glargine [Lantus] 22 unit SQ HS@209902/01/18 02/01/18 History Lisinopril [Zestril] 5 mg PO DAILY@0800 02/01/18 02/01/18 History Mag Hydrox/Al Hydrox/Simeth 15 ml PO Q6H PRN 02/01/18 02/01/18 History [Maalox] Magnesium Hydroxide [Milk of 2,400 mg PO DAILY PRN 02/01/18 02/01/18 History Magnesia] Na Phos,M-B/Na Phos,Di-Ba [Fleet 133 ml RECTAL DAILY PRN 02/01/18 02/01/18 History Adult] Omeprazole [PriLOSEC] 20 mg PO AC-BID@0800,1700 02/01/18 02/01/18 History Sennosides [Senokot] 8.6 mg PO DAILY@0800 02/01/18 02/01/18 History Spironolactone [Aldactone] 25 mg PO DAILY@0800 02/01/18 02/01/18 History Torsemide [Demadex] 40 mg PO DAILY@0600 02/01/18 02/01/18 History traMADol HCl [Ultram] 50 mg PO Q6H PRN 02/01/18 02/01/18 History Allergies Allergy/AdvReac Type Severity Reaction Status Date / Time erythromycin base Allergy Severe Rash/Hives Verified 02/01/18 16:58 [Erythromycin Base] cephalexin monohydrate Allergy Unknown Rash/Hives Verified 02/01/18 16:58 [From Keflex] codeine Allergy Unknown Unknown Verified 02/01/18 16:58 meclizine Allergy Unknown Unknown Verified 02/01/18 16:58 Penicillins Allergy Unknown Rash/Hives Verified 02/01/18 16:58 shellfish derived Allergy Unknown Anaphylaxis Verified 02/01/18 16:58 Fish Containing Products Allergy Anaphylaxis Verified 02/01/18 16:58 [Fish] Iodinated Contrast- Oral and Allergy Anaphylaxis Verified 02/01/18 16:58 IV Dye naproxen AdvReac Unknown Compromises Verified 02/01/18 16:58 Kidney Function atorvastatin calcium AdvReac Myalgia Verified 02/01/18 16:58 [From Lipitor] glucosamine AdvReac Unknown Verified 02/01/18 16:58 hydrocodone [From [place]] AdvReac Rapid Verified 02/01/18 16:58 Heart Rate Physical Examination - Vital Signs Vital Signs: Vital Signs Temp Pulse Pulse Resp BP BP Pulse Ox 02/02/18 16:00 96 16 106/59 95 02/02/18 12:00 99 16 117/76 99 02/02/18 08:00 98 16 118/70 100 02/02/18 03:49 97.1 F L 99 118/59 93 L 02/02/18 00:52 15 02/02/18 00:07 97.1 F L 97 15 114/82 100 02/01/18 23:11 95 20 109/62 95 Intake and Output 02/02/18 02/02/18 02/02/18 06:59 14:59 22:59 Intake Total 462 300 Output Total 520 Balance -58 300 Intake: Oral 462 300 Output: Urine 520 Other: # Voids 2 # Bowel Movements 2 Weight 106.1 kg - Constitutional General appearance: average body habitus, cooperative, obese - EENT EENT: PERRL, vision intact - Respiratory Respiratory: lungs clear - Cardiovascular Cardiovascular: regular rate, normal S1 - Neurologic Neurologic examination: Mental status: He was awake alert and oriented. His speech was fluent. There was no a aphasia or dysarthria. Cranial nerve examination: PERRL, EOMI, VFF, V1/V2/V3 grossly intact, face symmetric, tongue midline Speech examination: intact Sensorimotor examination: intact Detailed motor examination: grossly full strength in all extremities - Psychiatric Psychiatric: mood/affect appropriate Results - Laboratory Findings CBC and BMP: 02/02/18 07:12 02/02/18 07:12 Abnormal Lab Findings: Abnormal Labs 02/01/18 02/01/18 02/01/18 16:49 16:49 16:49 RBC 3.91 L Hgb 11.0 L Hct 34.9 L MCHC RDW 18.3 H INR Sodium 136 L BUN 26 H Glucose POC Glucose (mg/dL) Alkaline Phosphatase 221 H Total Creatine Kinase 44 L Troponin I 0.051 H* Total Protein 6.0 L Albumin 3.2 L Triglycerides HDL Cholesterol Ur Barbiturates Screen 02/01/18 02/01/18 02/02/18 16:49 19:07 03:52 RBC Hgb Hct MCHC RDW INR 1.2 H Sodium BUN Glucose POC Glucose (mg/dL) 62 L Alkaline Phosphatase Total Creatine Kinase Troponin I Total Protein Albumin Triglycerides HDL Cholesterol Ur Barbiturates Screen Detected H 02/02/18 02/02/18 02/02/18 06:07 07:12 07:12 RBC Hgb 12.2 L Hct MCHC 29.8 L RDW 18.1 H INR Sodium BUN Glucose 106 H POC Glucose (mg/dL) 128 H Alkaline Phosphatase Total Creatine Kinase Troponin I Total Protein Albumin Triglycerides 207 H HDL Cholesterol 34 L Ur Barbiturates Screen 02/02/18 02/02/18 02/02/18 07:12 11:50 16:17 RBC Hgb Hct MCHC RDW INR 1.2 H Sodium BUN Glucose POC Glucose (mg/dL) 136 H 174 H Alkaline Phosphatase Total Creatine Kinase Troponin I Total Protein Albumin Triglycerides HDL Cholesterol Ur Barbiturates Screen 02/02/18 20:28 RBC Hgb Hct MCHC RDW INR Sodium BUN Glucose POC Glucose (mg/dL) 228 H Alkaline Phosphatase Total Creatine Kinase Troponin I Total Protein Albumin Triglycerides HDL Cholesterol Ur Barbiturates Screen Assessment and Plan (1) TIA (transient ischemic attack) Current Visit: Yes Status: Acute Code(s): G45.9 - TRANSIENT CEREBRAL ISCHEMIC ATTACK, UNSPECIFIED SNOMED Code(s): 211567861 Plan: The patient is a 42-year-old man with multiple medical comorbidities including congestive heart failure and coronary artery disease diabetes hypertension and asthma and sleep apnea who presents with right-sided pain and tingling which lasted several hours yesterday. The patient is currently asymptomatic except for some cramping in the right hand. He has had similar pain in the right leg for some time particularly when he was at [facility] recently for the 2 weeks he was there. At that time he was found to have a left lower extremity DVT. The patient is currently on Eliquis and Plavix.'s. He had a carotid ultrasound which did not show any significant stenosis. Cardiology has been consulted. Recommend continue Eliquis and Plavix and also recommend venous Doppler study of right leg.
[2018-02-02 21:51] VITALS: RESP 18
[2018-02-03] MEDS: INSULIN ASPART 100 UNIT/ML 1 ML 10 ML VIAL SQ SCH ×2 (06:25→12:27)
[2018-02-03] MEDS: TORSEMIDE 20 MG TAB PO SCH (06:25)
[2018-02-03] MEDS: GABAPENTIN 400 MG CAP PO SCH (06:25)
[2018-02-03 06:26] LABS: Glucose,Whole Blood 116 mg/dL (75-99)
[2018-02-03 07:10] LABS: Anion Gap 8 mmol/L; Blood Urea Nitrogen 23 mg/dL (9-20); Calcium 8.9 mg/dL (8.4-10.2); Carbon Dioxide 25 mmol/L (22-30); Chloride 105 mmol/L (98-107); Glucose 108 mg/dL (74-99); Potassium 4.3 mmol/L (3.5-5.1); Sodium 138 mmol/L (137-145)
[2018-02-03 07:35] LABS: Anisocytosis Slight; Basophils % (A) 1 %; Eosinophils # (A) 0.6 k/uL (0-0.7); Eosinophils % (A) 11 %; HCT 37.6 % (39.0-53.0); HGB 11.4 gm/dL (13.0-17.5); Hypochromasia Moderate; Lymphocytes # (A) 1.3 k/uL (1.0-4.8); Lymphocytes % (A) 23 %; MCH 27.3 pg (25.0-35.0); MCHC 30.4 g/dL (31.0-37.0); MCV 89.8 fL (80.0-100.0); Mean Platelet Volume 7.1; Monocytes # (A) 0.3 k/uL (0-1.0); Monocytes % (A) 6 %; Neutrophils # (A) 3.2 k/uL (1.3-7.7); Neutrophils % (A) 58 %; Platelet Count 312 k/uL (150-450); RBC 4.19 m/uL (4.30-5.90); RDW 18.3 % (11.5-15.5); WBC 5.4 k/uL (3.8-10.6)
[2018-02-03] MEDS ORDERED: ASPIRIN 81 MG PO SCH (09:00)
[2018-02-03] MEDS: FERROUS SULFATE 325 MG TAB PO SCH (09:34)
[2018-02-03] MEDS: APIXABAN 5 MG TAB PO SCH (09:34)
[2018-02-03] MEDS: CLOPIDOGREL 75 MG TAB PO SCH (09:34)
[2018-02-03] MEDS: DIGOXIN 125 MCG TAB PO SCH (09:35)
[2018-02-03] MEDS: LISINOPRIL 5 MG TAB PO SCH (09:35)
[2018-02-03] MEDS: PANTOPRAZOLE 40 MG TABLET PO SCH (09:35)
[2018-02-03] MEDS: PRIMIDONE 250 MG TAB PO SCH (09:35)
[2018-02-03] MEDS: SERTRALINE 100 MG TAB PO SCH (09:36)
[2018-02-03] MEDS: SENNOSIDES 8.6 MG TAB PO SCH (09:36)
[2018-02-03] MEDS: SPIRONOLACTONE 25 MG TAB PO SCH (09:36)
--- NOTE | 2018-02-03 10:21 | US ---
EXAMINATION TYPE: US venous doppler duplex LE RT DATE OF EXAM: 02/03/2018 8:36 AM COMPARISON: 02/23/2017 CLINICAL HISTORY: 42-year-old male with right leg pain x couple months, patient on blood thinners, ex am done portable. SIDE PERFORMED: Right TECHNIQUE: The lower extremity deep venous system is examined utilizing real time linear array sonog mami with graded compression, doppler sonography and color-flow sonography. FINDINGS: VESSELS IMAGED: External Iliac Vein (EIV) Common Femoral Vein Deep Femoral Vein Greater Saphenous Vein * Femoral Vein Popliteal Vein Small Saphenous Vein * Proximal Calf Veins (* superficial vessels) Cost Estimator notes: Right Leg: Appears negative for DVT, right groin: multiple lymph nodes with largest measuring 2.1 x 1.6 cm which is borderline to mildly enlarged. IMPRESSION: 1. No evidence for DVT within the right lower extremity imaged from the groin to the upper calf. 2. A few borderline to mildly enlarged right inguinal lymph nodes probably reactive/post inflammatory . These can be followed clinically and reimaged if any progressive enlargement is noted.
[2018-02-03 11:21] VITALS: TEMP 97.4
[2018-02-03] MEDS ORDERED: diphenhydrAMINE 50 MG/ML 1 ML VIAL IVP ONE (11:51)
--- NOTE | 2018-02-03 12:09 | P.DS ---
Providers Date of admission: 02/01/18 18:07 Expected date of discharge: 02/03/18 Attending physician: Safia Clay Consults: 02/01/18 18:07 Consult Physician Routine Consulting Provider: Katlyn Joyce Consult Reason/Comments: TIA Do you want consulting provider notified?: Yes 02/01/18 18:37 Consult Physician Routine Consulting Provider: Cha Salazar Consult Reason/Comments: cad Do you want consulting provider notified?: Yes Primary care physician: [facility] Course: Final Diagnoses: -Weakness of right-sided body with possible acute TIA involving left hemisphere , resolved -No evidence of DVT within the right lower extremity, a few borderline to mildly enlarged right inguinal lymph nodes probably reactive/postinflammatory- further follow-up outpatient. -Congestive heart failure, chronic systolic dysfunction, EF 20-25% -Ischemic cardiomyopathy possibly -Diabetes mellitus type 2 -CAD -Anxiety, depression, posttraumatic stress disorder Hospital course: This is a 42-year-old gentleman with recent weakness, possible TIA and multiple other medical issues. Evaluated by neurology, neurology workup completed. Brain CT, nonacute. Carotid Doppler reported no hemodynamic significant stenosis. No evidence of DVT within the right lower extremity, a few borderline to mildly enlarged right inguinal lymph nodes probably reactive/ postinflammatory. Significant clinical improvement. Patient will be discharged to [facility] subacute rehab once cleared by neurology, in a stable condition with guarded prognosis. GENERAL: Alert and oriented 3, no acute distress.CV: S1, S2 muffled.LUNGS: Bilateral bases diminished.ABD: Soft, nontender, positive bowel sounds.NEURO: No focal deficits. The impression and plan of care has been dictated as directed. : I performed a history and examination of this patient, discussed the same with the dictator. I agree with the dictator's note ,documented as a scribe. Any additional findings or plans will be noted. Time taken: 35 minutes Patient Condition at Discharge: Stable Plan - Discharge Summary Discharge Rx Participant: No New Discharge Prescriptions: New Aspirin 81 mg PO DAILY chew diphenhydrAMINE [Benadryl] 25 mg PO QID PRN cap PRN Reason: Itching INSULIN LISPRO (HumaLOG) [humaLOG] 0 unit SQ ACHS #1 vial Continue Nitroglycerin Sl Tabs [Nitrostat] 0.4 mg SUBLINGUAL Q5M PRN tab PRN Reason: Chest Pain ARIPiprazole [ARIPiprazole Odt] 15 mg PO HS@2100 Metoprolol Succinate [Toprol XL] 25 mg PO DAILY@0800 Ferrous Sulfate [Iron (65 MG Elemental)] 325 mg PO BID@0800,1700 Primidone [Mysoline] 500 mg PO BID@0800,2100 Clopidogrel [Plavix] 75 mg PO DAILY@0800 Sertraline [Zoloft] 200 mg PO DAILY@0800 Ondansetron [Zofran] 4 mg PO Q8HR PRN PRN Reason: Nausea Rosuvastatin [Crestor] 20 mg PO HS@2100 Acetaminophen Tab [Tylenol] 650 mg PO Q4HR PRN tab PRN Reason: Fever and/ or MILD Pain Apixaban [Eliquis] 5 mg PO BID@0800,1700 Bisacodyl 10 mg RECTAL DAILY PRN PRN Reason: Constipation Digoxin [Digitek] 125 mcg PO DAILY@0800 Gabapentin [Neurontin] 400 mg PO TID@0600,1400,2100 Lisinopril [Zestril] 5 mg PO DAILY@0800 Mag Hydrox/Al Hydrox/Simeth [Maalox] 15 ml PO Q6H PRN PRN Reason: STOMACH DISTRESS Magnesium Hydroxide [Milk of Magnesia] 2,400 mg PO DAILY PRN PRN Reason: Constipation Na Phos,M-B/Na Phos,Di-Ba [Fleet Adult] 133 ml RECTAL DAILY PRN PRN Reason: Constipation Omeprazole [PriLOSEC] 20 mg PO AC-BID@0800,1700 Sennosides [Senokot] 8.6 mg PO DAILY@0800 Spironolactone [Aldactone] 25 mg PO DAILY@0800 Torsemide [Demadex] 40 mg PO DAILY@0600 traMADol HCl [Ultram] 50 mg PO Q6H PRN #12 tab PRN Reason: Pain Changed Insulin Glargine [Lantus] 10 unit SQ HS@2100 #0 Discontinued INSULIN LISPRO (HumaLOG) [humaLOG] 7 unit SQ AC-TID Discharge Medication List Nitroglycerin Sl Tabs [Nitrostat] 0.4 mg SUBLINGUAL Q5M PRN tab 07/27/17 [Rx] ARIPiprazole [ARIPiprazole Odt] 15 mg PO HS@2100 10/27/17 [History] Clopidogrel [Plavix] 75 mg PO DAILY@79912/03/17 [History] Ferrous Sulfate [Iron (65 MG Elemental)] 325 mg PO BID@08,169912/03/17 [ History] Metoprolol Succinate [Toprol XL] 25 mg PO DAILY@79912/03/17 [History] Primidone [Mysoline] 500 mg PO BID@799,209912/03/17 [History] Sertraline [Zoloft] 200 mg PO DAILY@79912/05/17 [History] Ondansetron [Zofran] 4 mg PO Q8HR PRN 12/30/17 [History] Rosuvastatin [Crestor] 20 mg PO HS@209912/30/17 [History] Acetaminophen Tab [Tylenol] 650 mg PO Q4HR PRN tab 01/06/18 [Rx] Apixaban [Eliquis] 5 mg PO BID@0800,169902/01/18 [History] Bisacodyl 10 mg RECTAL DAILY PRN 02/01/18 [History] Digoxin [Digitek] 125 mcg PO DAILY@79902/01/18 [History] Gabapentin [Neurontin] 400 mg PO TID@0600,1400,209902/01/18 [History] Lisinopril [Zestril] 5 mg PO DAILY@79902/01/18 [History] Mag Hydrox/Al Hydrox/Simeth [Maalox] 15 ml PO Q6H PRN 02/01/18 [History] Magnesium Hydroxide [Milk of Magnesia] 2,400 mg PO DAILY PRN 02/01/18 [History] Na Phos,M-B/Na Phos,Di-Ba [Fleet Adult] 133 ml RECTAL DAILY PRN 02/01/18 [ History] Omeprazole [PriLOSEC] 20 mg PO AC-BID@0800,169902/01/18 [History] Sennosides [Senokot] 8.6 mg PO DAILY@79902/01/18 [History] Spironolactone [Aldactone] 25 mg PO DAILY@79902/01/18 [History] Torsemide [Demadex] 40 mg PO DAILY@59902/01/18 [History] Aspirin 81 mg PO DAILY chew 02/03/18 [Rx] INSULIN LISPRO (HumaLOG) [humaLOG] 0 unit SQ ACHS #1 vial 02/03/18 [Rx] Insulin Glargine [Lantus] 10 unit SQ HS@2100 #0 02/03/18 [Rx] diphenhydrAMINE [Benadryl] 25 mg PO QID PRN cap 02/03/18 [Rx] traMADol HCl [Ultram] 50 mg PO Q6H PRN #12 tab 02/03/18 [Rx] Follow up Appointment(s)/Referral(s): Flo Tse MD [STAFF PHYSICIAN] - 3 Days (While at subacute rehab) Junie New MD [Primary Care Provider] - 3 Days (After discharge from subacute rehab) Katlyn Joyce MD [STAFF PHYSICIAN] - 2 Weeks Activity/Diet/Wound Care/Special Instructions: Pending neurology's clearance [place] Diet: Consistent carb Activity: As tolerated CBC, BMP in 3 days
[2018-02-03 12:24] LABS: Glucose,Whole Blood 141 mg/dL (75-99)
[2018-02-03] MEDS: METOPROLOL SUCCINATE (ER) 25 MG TAB.ER.24H PO SCH (12:27)
[2018-02-03 12:56] VITALS: BP 112/56; PULSE 95
[2018-02-03] MEDS ORDERED: PRIMIDONE 50 MG TAB PO SCH (21:00)
== END 2018-02-03 15:35 ==
LOC: EC 15:42 → 6SEL 18:07
PROVIDERS: ADMIT Hospitalist; ATTEND Hospitalist
DX: R53.1 Weakness (principal); R59.0 Localized enlarged lymph nodes; I11.0 Hypertensive heart disease with heart failure; I50.22 Chronic systolic (congestive) heart failure; I69.351 Hemiplegia and hemiparesis following cerebral infarction affecting right dominant side; K21.9 Gastro-esophageal reflux disease without esophagitis; J45.909 Unspecified asthma, uncomplicated; I25.10 Atherosclerotic heart disease of native coronary artery without angina pectoris; G47.33 Obstructive sleep apnea (adult) (pediatric); E78.5 Hyperlipidemia, unspecified; K31.84 Gastroparesis; G89.29 Other chronic pain; M54.9 Dorsalgia, unspecified; E11.40 Type 2 diabetes mellitus with diabetic neuropathy, unspecified; G43.909 Migraine, unspecified, not intractable, without status migrainosus; M19.90 Unspecified osteoarthritis, unspecified site; Z99.89 Dependence on other enabling machines and devices; F41.9 Anxiety disorder, unspecified; K44.9 Diaphragmatic hernia without obstruction or gangrene; F43.10 Post-traumatic stress disorder, unspecified; E66.9 Obesity, unspecified; Z68.38 Body mass index [BMI] 38.0-38.9, adult; F32.9 Major depressive disorder, single episode, unspecified; Z79.02 Long term (current) use of antithrombotics/antiplatelets; Z79.01 Long term (current) use of anticoagulants; Z79.82 Long term (current) use of aspirin; Z79.4 Long term (current) use of insulin; Z79.899 Other long term (current) drug therapy; Z88.8 Allergy status to other drugs, medicaments and biological substances; Z88.6 Allergy status to analgesic agent; Z88.1 Allergy status to other antibiotic agents; Z91.041 Radiographic dye allergy status; Z88.5 Allergy status to narcotic agent; Z88.0 Allergy status to penicillin; Z91.013 Allergy to seafood; Z87.01 Personal history of pneumonia (recurrent); Z91.5 Personal history of self-harm; Z86.14 Personal history of Methicillin resistant Staphylococcus aureus infection; I25.2 Old myocardial infarction; Z87.19 Personal history of other diseases of the digestive system; Z87.898 Personal history of other specified conditions; Z95.810 Presence of automatic (implantable) cardiac defibrillator; Z90.49 Acquired absence of other specified parts of digestive tract; Z90.89 Acquired absence of other organs; Z95.5 Presence of coronary angioplasty implant and graft; Z90.79 Acquired absence of other genital organ(s); Z87.440 Personal history of urinary (tract) infections; Z87.11 Personal history of peptic ulcer disease; Z86.718 Personal history of other venous thrombosis and embolism; Z87.891 Personal history of nicotine dependence; Z82.49 Family history of ischemic heart disease and other diseases of the circulatory system; Z80.1 Family history of malignant neoplasm of trachea, bronchus and lung; Z82.0 Family history of epilepsy and other diseases of the nervous system; Z83.3 Family history of diabetes mellitus
CPT/HCPCS: 99285 ×2; 96374; 36415; 93005; 97163; 97535; 97167; 92610; 80061; 80053; 80048 ×2; 82550; 82553; 83735; 84484; 85025 ×3; 85610 ×2; 85730; 81003; 87324; 80306; 83036; 71046; 93971; 93880; 70450; G0378 ×3; J1200

== ENCOUNTER 2018-04-01 04:10 | Inpatient (IN) | payer MEDICARE, OTHER ==
[2018-04-01] MEDS ORDERED: DEXTROSE 5%-0.9% NACL 1,000 ML IV SCH (04:15)
[2018-04-01 04:24] LABS: Glucose,Whole Blood 60 mg/dL (75-99)
[2018-04-01] MEDS ORDERED: DEXTROSE 50%-WATER 50 ML SYRINGE IVP STA ×6 (04:32→10:37)
--- NOTE | 2018-04-01 04:32 | ED ---
Overdose HPI - General Chief Complaint: Overdose Stated Complaint: Overdose Time Seen by Provider: 04/01/18 04:12 Source: patient Mode of arrival: ambulatory Limitations: altered mental status - History of Present Illness Initial Comments: 9 is a 42-year-old male with a very complex past medical and psychiatric history who presents the ED today via EMS for evaluation of an intentional overdose. Per EMS they were dispatched to the patient's home after his called 911. Patient reportedly intentionally overdosed on insulin taking both his NovoLog and his Lantus pins. Patient reported that both were completely full and he injected the full dose to himself intentionally. EMS reports that upon their arrival the patient was diaphoretic somnolent and unresponsive. Initial blood glucose was less than 50. He was given an amp of D50 his glucose increased to 150 and he was transported to the ER. Upon arrival he was awake, alert, oriented he did confirm that he had intentionally overdosed, he did again report the taken both his insulin pens. He denied any other ingestions. He did express suicidal ideation. He repeatedly requested he be made DO NOT RESUSCITATE. - Related Data Home Medications Medication Instructions Recorded Confirmed RX: ARIPiprazole [ARIPiprazole Odt] 15 mg PO HS@209910/27/17 02/01/18 RX: Clopidogrel [Plavix] 75 mg PO DAILY@79912/03/17 02/01/18 RX: Ferrous Sulfate [Iron (65 MG 325 mg PO BID@0800,169912/03/17 02/01/18 Elemental)] RX: Metoprolol Succinate [Toprol 25 mg PO DAILY@79912/03/17 02/01/18 XL] RX: Primidone [Mysoline] 50 mg PO BID@0800,209912/03/17 02/03/18 RX: Sertraline [Zoloft] 200 mg PO DAILY@79912/05/17 02/01/18 RX: Ondansetron [Zofran] 4 mg PO Q8HR PRN 12/30/17 02/01/18 RX: Rosuvastatin [Crestor] 20 mg PO HS@209912/30/17 02/01/18 RX: Apixaban [Eliquis] 5 mg PO BID@0800,169902/01/18 02/01/18 RX: Bisacodyl 10 mg RECTAL DAILY PRN 02/01/18 02/01/18 RX: Digoxin [Digitek] 125 mcg PO DAILY@0800 02/01/18 02/01/18 RX: Gabapentin [Neurontin] 400 mg PO TID@0600,1400,2100 02/01/18 02/01/18 RX: Lisinopril [Zestril] 5 mg PO DAILY@0800 02/01/18 02/01/18 RX: Mag Hydrox/Al Hydrox/Simeth 15 ml PO Q6H PRN 02/01/18 02/01/18 [Maalox] RX: Magnesium Hydroxide [Milk of 2,400 mg PO DAILY PRN 02/01/18 02/01/18 Magnesia] RX: Na Phos,M-B/Na Phos,Di-Ba 133 ml RECTAL DAILY PRN 02/01/18 02/01/18 [Fleet Adult] RX: Omeprazole [PriLOSEC] 20 mg PO AC-BID@0800,1700 02/01/18 02/01/18 RX: Sennosides [Senokot] 8.6 mg PO DAILY@0800 02/01/18 02/01/18 RX: Spironolactone [Aldactone] 25 mg PO DAILY@0800 02/01/18 02/01/18 RX: Torsemide [Demadex] 40 mg PO DAILY@0600 02/01/18 02/01/18 Previous Rx's Medication Instructions Recorded RX: Nitroglycerin Sl Tabs 0.4 mg SUBLINGUAL Q5M PRN tab 07/27/17 [Nitrostat] RX: Acetaminophen Tab [Tylenol] 650 mg PO Q4HR PRN tab 01/06/18 RX: Aspirin 81 mg PO DAILY chew 02/03/18 RX: INSULIN LISPRO (HumaLOG) 0 unit SQ ACHS #1 vial 02/03/18 [humaLOG] RX: Insulin Glargine [Lantus] 10 unit SQ HS@2100 #0 02/03/18 RX: diphenhydrAMINE [Benadryl] 25 mg PO QID PRN cap 02/03/18 RX: traMADol HCl [Ultram] 50 mg PO Q6H PRN #12 tab 02/03/18 Allergies Allergy/AdvReac Type Severity Reaction Status Date / Time erythromycin base Allergy Severe Rash/Hives Verified 02/01/18 16:58 [Erythromycin Base] cephalexin monohydrate Allergy Unknown Rash/Hives Verified 02/01/18 16:58 [From Keflex] codeine Allergy Unknown Unknown Verified 02/01/18 16:58 meclizine Allergy Unknown Unknown Verified 02/01/18 16:58 Penicillins Allergy Unknown Rash/Hives Verified 02/01/18 16:58 shellfish derived Allergy Unknown Anaphylaxis Verified 02/01/18 16:58 Fish Containing Products Allergy Anaphylaxis Verified 02/01/18 16:58 [Fish] Iodinated Contrast- Oral and Allergy Anaphylaxis Verified 02/01/18 16:58 IV Dye naproxen AdvReac Unknown Compromises Verified 02/01/18 16:58 Kidney Function atorvastatin calcium AdvReac Myalgia Verified 02/01/18 16:58 [From Lipitor] glucosamine AdvReac Unknown Verified 02/01/18 16:58 hydrocodone [From Cutler] AdvReac Rapid Verified 02/01/18 16:58 Heart Rate Review of Systems ROS Statement: Those systems with pertinent positive or pertinent negative responses have been documented in the HPI. ROS Other: All systems not noted in ROS Statement are negative. Past Medical History Past Medical History: Asthma, Coronary Artery Disease (CAD), Chest Pain / Angina , Heart Failure, CVA/TIA, Diabetes Mellitus, GERD/Reflux, Hyperlipidemia, Hypertension, Myocardial Infarction (RI), Osteoarthritis (OA), Pneumonia, Skin Disorder, Sleep Apnea/CPAP/BIPAP Additional Past Medical History / Comment(s): multiple vessel CAD, ischemic cardiomyopathy, diabetic neuropathy bilateral hands and feet, hypertensive cardiovascular disease, SHELIA with no device, chronic gastritis, degenerative disc disease, chronic back pain, depression with hx of suicide attempts, gastroparesis, psoriasis, UTI, migraines, TIA, PUD, hiatal hernia, L rotator cuff tear, bronchitis, pseudoaneurysm L groin post procedure. 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 Date of Last Stent Placement:: 05/25/2017 Type of Cardiac Device: Biventricular Pacemaker, AICD Device Placement Date:: 09/19/15 Past Psychological History: Anxiety, Depression, PTSD Smoking Status: Never smoker - Past Family History Mother Family Medical History: Coronary Artery Disease (CAD), Myocardial Infarction (RI ) Additional Family Medical History / Comment(s): 7 RI and faulty heart valve. Pt does not know the age when mother had her RI's. Father History Unknown: Yes Additional Family Medical History / Comment(s): Does not know who father is. Brother(s) Family Medical History: Cancer, Congestive Heart Failure (CHF), Myocardial Infarction (RI) Additional Family Medical History / Comment(s): Parkinsons. Pt does not know at what age his brother had an RI. Patient's other brother has lung CA Patient has Family Medical History: No Reported History Additional Family Medical History / Comment(s): There is a strong family history for heart disease, hypertension, and diabetes. General Exam - General Exam Comments Initial Comments: GENERAL: Chronically ill-appearing obese 42-year-old male who appears much older than stated age, appears disheveled and unkempt HENT: Normocephalic, Atraumatic. EYES: Pupils 3 mm and reactive bilaterally PULMONARY: Unlabored respirations. Good breath sounds bilaterally. No audible rales rhonchi or wheezing was noted. Snoring respirations when blood glucose is below 70 CARDIOVASCULAR: There is a regular rate and rhythm without any murmurs gallops or rubs. Pacemaker present in left chest ABDOMEN: Soft and nontender with normal bowel sounds. SKIN: Skin is clear with no lesions or rashes and otherwise unremarkable. Skin is moist NEUROLOGIC: Patient is alert and oriented x3. Cranial nerves II through XII are grossly intact. MUSCULOSKELETAL: Moving all extremities spontaneously LYMPHATICS: No significant lymphadenopathy is noted PSYCHIATRIC: Suicidal Limitations: no limitations Limitations: altered mental status Course Vital Signs 11/08/18 11/08/18 04:11 07:41 Temperature 97.4 F L Pulse Rate 84 75 Respiratory 16 18 Rate Blood Pressure 132/81 114/64 O2 Sat by Pulse 96 97 Oximetry - Reevaluation(s) Reevaluation #1: is awake and conversing with family at bedside however repeat blood glucose is 39 does not Of D50 was ordered 04/01/18 05:26 Medical Decision Making - Medical Decision Making Patient was seen and evaluated history is obtained from EMS and patient as well as medical record Patient presented with an intentional overdose of 300 units of Lantus and 300 units of NovoLog Blood glucose on arrival per EMS was 50, patient received 1 amp of D50 blood glucose improved to 150. Blood glucose upon arrival was 107, within 15 minutes of arrival patient's blood glucose decreased to 60 an additional amp of D50 was ordered D5 drip infusing and 150 ml per hour Patient with recurrent episodes of hypoglycemia, D10 infusion was ordered D50 given when necessary Patient care was discussed with [facility] who recommended continued D10, high carbohydrate diet, D50 as needed and octreotide Patient care was discussed with sounds physicians from [facility] who accepted admission with a consult to the dog food dough mixer, Dr. Benavidez I was paged. Patient care was discussed with Dr. Najera who accepts the consult. Patient to be admitted to the ICU. - Lab Data Result diagrams: 04/01/18 04:20 04/01/18 04:20 Lab Results 04/01/18 04/01/18 04/01/18 Range/Units 04:20 04:20 04:20 WBC 7.3 (3.8-10.6) k/uL RBC 4.81 (4.30-5.90) m/uL Hgb 12.9 L (13.0-17.5) gm/dL Hct 40.8 (39.0-53.0) % MCV 84.8 D (80.0-100.0) fL MCH 26.8 (25.0-35.0) pg MCHC 31.6 (31.0-37.0) g/dL RDW 15.5 (11.5-15.5) % Plt Count 260 (150-450) k/uL Neutrophils % 76 % Lymphocytes % 16 % Monocytes % 4 % Eosinophils % 2 % Basophils % 0 % Neutrophils # 5.5 (1.3-7.7) k/uL Lymphocytes # 1.1 (1.0-4.8) k/uL Monocytes # 0.3 (0-1.0) k/uL Eosinophils # 0.2 (0-0.7) k/uL Basophils # 0.0 (0-0.2) k/uL Hypochromasia Slight PT 11.2 (9.0-12.0) sec INR 1.2 H (<1.2) APTT 22.5 (22.0-30.0) sec Sodium 136 L (137-145) mmol/L Potassium 3.0 L (3.5-5.1) mmol/L Chloride 105 (98-107) mmol/L Carbon Dioxide 22 (22-30) mmol/L Anion Gap 9 mmol/L BUN 35 H (9-20) mg/dL Creatinine 0.90 (0.66-1.25) mg/dL Est GFR (CKD-EPI)AfAm >90 (>60 ml/min/1.73 sqM) Est GFR (CKD-EPI)NonAf >90 (>60 ml/min/1.73 sqM) Glucose 75 (74-99) mg/dL POC Glucose (mg/dL) (75-99) mg/dL POC Glu Mortgage Consultant ID Calcium 9.5 (8.4-10.2) mg/dL Total Bilirubin 0.4 (0.2-1.3) mg/dL AST 33 (17-59) U/L ALT 42 (21-72) U/L Alkaline Phosphatase 215 H (38-126) U/L Total Protein 6.4 (6.3-8.2) g/dL Albumin 3.4 L (3.5-5.0) g/dL Urine Color Urine Appearance (Clear) Urine pH (5.0-8.0) Ur Specific Ripley (1.001-1.035) Urine Protein (Negative) Urine Glucose (UA) (Negative) Urine Ketones (Negative) Urine Blood (Negative) Urine Nitrite (Negative) Urine Bilirubin (Negative) Urine Urobilinogen (<2.0) mg/dL Ur Leukocyte Esterase (Negative) Urine RBC (0-5) /hpf Urine WBC (0-5) /hpf Hyaline Casts (0-2) /lpf Urine Mucus (None) /hpf Digoxin <0.4 ng/mL Salicylates <1.0 mg/dL Urine Opiates Screen (NotDetected) Ur Oxycodone Screen (NotDetected) Urine Methadone Screen (NotDetected) Ur Propoxyphene Screen (NotDetected) Acetaminophen <10.0 ug/mL Ur Barbiturates Screen (NotDetected) U Tricyclic Antidepress (NotDetected) Ur Phencyclidine Scrn (NotDetected) Ur Amphetamines Screen (NotDetected) U Methamphetamines Scrn (NotDetected) U Benzodiazepines Scrn (NotDetected) Urine Cocaine Screen (NotDetected) U Marijuana (THC) Screen (NotDetected) Serum Alcohol <10 mg/dL 04/01/18 04/01/18 04/01/18 Range/Units 04:23 04:37 04:52 WBC (3.8-10.6) k/uL RBC (4.30-5.90) m/uL Hgb (13.0-17.5) gm/dL Hct (39.0-53.0) % MCV (80.0-100.0) fL MCH (25.0-35.0) pg MCHC (31.0-37.0) g/dL RDW (11.5-15.5) % Plt Count (150-450) k/uL Neutrophils % % Lymphocytes % % Monocytes % % Eosinophils % % Basophils % % Neutrophils # (1.3-7.7) k/uL Lymphocytes # (1.0-4.8) k/uL Monocytes # (0-1.0) k/uL Eosinophils # (0-0.7) k/uL Basophils # (0-0.2) k/uL Hypochromasia PT (9.0-12.0) sec INR (<1.2) APTT (22.0-30.0) sec Sodium (137-145) mmol/L Potassium (3.5-5.1) mmol/L Chloride (98-107) mmol/L Carbon Dioxide (22-30) mmol/L Anion Gap mmol/L BUN (9-20) mg/dL Creatinine (0.66-1.25) mg/dL Est GFR (CKD-EPI)AfAm (>60 ml/min/1.73 sqM) Est GFR (CKD-EPI)NonAf (>60 ml/min/1.73 sqM) Glucose (74-99) mg/dL POC Glucose (mg/dL) 60 L 221 H 151 H (75-99) mg/dL POC Glu Mortgage Consultant ID Leia Manjarrez Joanna Gorecki, Joanna Calcium (8.4-10.2) mg/dL Total Bilirubin (0.2-1.3) mg/dL AST (17-59) U/L ALT (21-72) U/L Alkaline Phosphatase (38-126) U/L Total Protein (6.3-8.2) g/dL Albumin (3.5-5.0) g/dL Urine Color Urine Appearance (Clear) Urine pH (5.0-8.0) Ur Specific Ripley (1.001-1.035) Urine Protein (Negative) Urine Glucose (UA) (Negative) Urine Ketones (Negative) Urine Blood (Negative) Urine Nitrite (Negative) Urine Bilirubin (Negative) Urine Urobilinogen (<2.0) mg/dL Ur Leukocyte Esterase (Negative) Urine RBC (0-5) /hpf Urine WBC (0-5) /hpf Hyaline Casts (0-2) /lpf Urine Mucus (None) /hpf Digoxin ng/mL Salicylates mg/dL Urine Opiates Screen (NotDetected) Ur Oxycodone Screen (NotDetected) Urine Methadone Screen (NotDetected) Ur Propoxyphene Screen (NotDetected) Acetaminophen ug/mL Ur Barbiturates Screen (NotDetected) U Tricyclic Antidepress (NotDetected) Ur Phencyclidine Scrn (NotDetected) Ur Amphetamines Screen (NotDetected) U Methamphetamines Scrn (NotDetected) U Benzodiazepines Scrn (NotDetected) Urine Cocaine Screen (NotDetected) U Marijuana (THC) Screen (NotDetected) Serum Alcohol mg/dL 04/01/18 04/01/18 04/01/18 Range/Units 05:08 05:24 05:25 WBC (3.8-10.6) k/uL RBC (4.30-5.90) m/uL Hgb (13.0-17.5) gm/dL Hct (39.0-53.0) % MCV (80.0-100.0) fL MCH (25.0-35.0) pg MCHC (31.0-37.0) g/dL RDW (11.5-15.5) % Plt Count (150-450) k/uL Neutrophils % % Lymphocytes % % Monocytes % % Eosinophils % % Basophils % % Neutrophils # (1.3-7.7) k/uL Lymphocytes # (1.0-4.8) k/uL Monocytes # (0-1.0) k/uL Eosinophils # (0-0.7) k/uL Basophils # (0-0.2) k/uL Hypochromasia PT (9.0-12.0) sec INR (<1.2) APTT (22.0-30.0) sec Sodium (137-145) mmol/L Potassium (3.5-5.1) mmol/L Chloride (98-107) mmol/L Carbon Dioxide (22-30) mmol/L Anion Gap mmol/L BUN (9-20) mg/dL Creatinine (0.66-1.25) mg/dL Est GFR (CKD-EPI)AfAm (>60 ml/min/1.73 sqM) Est GFR (CKD-EPI)NonAf (>60 ml/min/1.73 sqM) Glucose (74-99) mg/dL POC Glucose (mg/dL) 67 L 44 L 39 L (75-99) mg/dL POC Glu Mortgage Consultant NANCI Solano, Courtney Solano, Courtney Hawthorne Calcium (8.4-10.2) mg/dL Total Bilirubin (0.2-1.3) mg/dL AST (17-59) U/L ALT (21-72) U/L Alkaline Phosphatase (38-126) U/L Total Protein (6.3-8.2) g/dL Albumin (3.5-5.0) g/dL Urine Color Urine Appearance (Clear) Urine pH (5.0-8.0) Ur Specific Ripley (1.001-1.035) Urine Protein (Negative) Urine Glucose (UA) (Negative) Urine Ketones (Negative) Urine Blood (Negative) Urine Nitrite (Negative) Urine Bilirubin (Negative) Urine Urobilinogen (<2.0) mg/dL Ur Leukocyte Esterase (Negative) Urine RBC (0-5) /hpf Urine WBC (0-5) /hpf Hyaline Casts (0-2) /lpf Urine Mucus (None) /hpf Digoxin ng/mL Salicylates mg/dL Urine Opiates Screen (NotDetected) Ur Oxycodone Screen (NotDetected) Urine Methadone Screen (NotDetected) Ur Propoxyphene Screen (NotDetected) Acetaminophen ug/mL Ur Barbiturates Screen (NotDetected) U Tricyclic Antidepress (NotDetected) Ur Phencyclidine Scrn (NotDetected) Ur Amphetamines Screen (NotDetected) U Methamphetamines Scrn (NotDetected) U Benzodiazepines Scrn (NotDetected) Urine Cocaine Screen (NotDetected) U Marijuana (THC) Screen (NotDetected) Serum Alcohol mg/dL 04/01/18 04/01/18 04/01/18 Range/Units 05:31 05:44 05:49 WBC (3.8-10.6) k/uL RBC (4.30-5.90) m/uL Hgb (13.0-17.5) gm/dL Hct (39.0-53.0) % MCV (80.0-100.0) fL MCH (25.0-35.0) pg MCHC (31.0-37.0) g/dL RDW (11.5-15.5) % Plt Count (150-450) k/uL Neutrophils % % Lymphocytes % % Monocytes % % Eosinophils % % Basophils % % Neutrophils # (1.3-7.7) k/uL Lymphocytes # (1.0-4.8) k/uL Monocytes # (0-1.0) k/uL Eosinophils # (0-0.7) k/uL Basophils # (0-0.2) k/uL Hypochromasia PT (9.0-12.0) sec INR (<1.2) APTT (22.0-30.0) sec Sodium (137-145) mmol/L Potassium (3.5-5.1) mmol/L Chloride (98-107) mmol/L Carbon Dioxide (22-30) mmol/L Anion Gap mmol/L BUN (9-20) mg/dL Creatinine (0.66-1.25) mg/dL Est GFR (CKD-EPI)AfAm (>60 ml/min/1.73 sqM) Est GFR (CKD-EPI)NonAf (>60 ml/min/1.73 sqM) Glucose (74-99) mg/dL POC Glucose (mg/dL) 207 H 125 H (75-99) mg/dL POC Glu Mortgage Consultant Courtney Atkinson Tiffany Calcium (8.4-10.2) mg/dL Total Bilirubin (0.2-1.3) mg/dL AST (17-59) U/L ALT (21-72) U/L Alkaline Phosphatase (38-126) U/L Total Protein (6.3-8.2) g/dL Albumin (3.5-5.0) g/dL Urine Color Yellow Urine Appearance Clear (Clear) Urine pH 5.5 (5.0-8.0) Ur Specific Ripley 1.010 (1.001-1.035) Urine Protein 2+ H (Negative) Urine Glucose (UA) Trace H (Negative) Urine Ketones Negative (Negative) Urine Blood Small H (Negative) Urine Nitrite Negative (Negative) Urine Bilirubin Negative (Negative) Urine Urobilinogen <2.0 (<2.0) mg/dL Ur Leukocyte Esterase Negative (Negative) Urine RBC 1 (0-5) /hpf Urine WBC 1 (0-5) /hpf Hyaline Casts 8 H (0-2) /lpf Urine Mucus Rare H (None) /hpf Digoxin ng/mL Salicylates mg/dL Urine Opiates Screen Not Detected (NotDetected) Ur Oxycodone Screen Not Detected (NotDetected) Urine Methadone Screen Not Detected (NotDetected) Ur Propoxyphene Screen Not Detected (NotDetected) Acetaminophen ug/mL Ur Barbiturates Screen Detected H (NotDetected) U Tricyclic Antidepress Not Detected (NotDetected) Ur Phencyclidine Scrn Not Detected (NotDetected) Ur Amphetamines Screen Not Detected (NotDetected) U Methamphetamines Scrn Not Detected (NotDetected) U Benzodiazepines Scrn Not Detected (NotDetected) Urine Cocaine Screen Not Detected (NotDetected) U Marijuana (THC) Screen Not Detected (NotDetected) Serum Alcohol mg/dL 04/01/18 04/01/18 04/01/18 Range/Units 06:04 06:26 06:57 WBC (3.8-10.6) k/uL RBC (4.30-5.90) m/uL Hgb (13.0-17.5) gm/dL Hct (39.0-53.0) % MCV (80.0-100.0) fL MCH (25.0-35.0) pg MCHC (31.0-37.0) g/dL RDW (11.5-15.5) % Plt Count (150-450) k/uL Neutrophils % % Lymphocytes % % Monocytes % % Eosinophils % % Basophils % % Neutrophils # (1.3-7.7) k/uL Lymphocytes # (1.0-4.8) k/uL Monocytes # (0-1.0) k/uL Eosinophils # (0-0.7) k/uL Basophils # (0-0.2) k/uL Hypochromasia PT (9.0-12.0) sec INR (<1.2) APTT (22.0-30.0) sec Sodium (137-145) mmol/L Potassium (3.5-5.1) mmol/L Chloride (98-107) mmol/L Carbon Dioxide (22-30) mmol/L Anion Gap mmol/L BUN (9-20) mg/dL Creatinine (0.66-1.25) mg/dL Est GFR (CKD-EPI)AfAm (>60 ml/min/1.73 sqM) Est GFR (CKD-EPI)NonAf (>60 ml/min/1.73 sqM) Glucose (74-99) mg/dL POC Glucose (mg/dL) 50 L 141 H 99 (75-99) mg/dL POC Glu Mortgage Consultant Leia Haynes Tiffany Gorecki, Joanna Calcium (8.4-10.2) mg/dL Total Bilirubin (0.2-1.3) mg/dL AST (17-59) U/L ALT (21-72) U/L Alkaline Phosphatase (38-126) U/L Total Protein (6.3-8.2) g/dL Albumin (3.5-5.0) g/dL Urine Color Urine Appearance (Clear) Urine pH (5.0-8.0) Ur Specific Ripley (1.001-1.035) Urine Protein (Negative) Urine Glucose (UA) (Negative) Urine Ketones (Negative) Urine Blood (Negative) Urine Nitrite (Negative) Urine Bilirubin (Negative) Urine Urobilinogen (<2.0) mg/dL Ur Leukocyte Esterase (Negative) Urine RBC (0-5) /hpf Urine WBC (0-5) /hpf Hyaline Casts (0-2) /lpf Urine Mucus (None) /hpf Digoxin ng/mL Salicylates mg/dL Urine Opiates Screen (NotDetected) Ur Oxycodone Screen (NotDetected) Urine Methadone Screen (NotDetected) Ur Propoxyphene Screen (NotDetected) Acetaminophen ug/mL Ur Barbiturates Screen (NotDetected) U Tricyclic Antidepress (NotDetected) Ur Phencyclidine Scrn (NotDetected) Ur Amphetamines Screen (NotDetected) U Methamphetamines Scrn (NotDetected) U Benzodiazepines Scrn (NotDetected) Urine Cocaine Screen (NotDetected) U Marijuana (THC) Screen (NotDetected) Serum Alcohol mg/dL 04/01/18 Range/Units 07:17 WBC (3.8-10.6) k/uL RBC (4.30-5.90) m/uL Hgb (13.0-17.5) gm/dL Hct (39.0-53.0) % MCV (80.0-100.0) fL MCH (25.0-35.0) pg MCHC (31.0-37.0) g/dL RDW (11.5-15.5) % Plt Count (150-450) k/uL Neutrophils % % Lymphocytes % % Monocytes % % Eosinophils % % Basophils % % Neutrophils # (1.3-7.7) k/uL Lymphocytes # (1.0-4.8) k/uL Monocytes # (0-1.0) k/uL Eosinophils # (0-0.7) k/uL Basophils # (0-0.2) k/uL Hypochromasia PT (9.0-12.0) sec INR (<1.2) APTT (22.0-30.0) sec Sodium (137-145) mmol/L Potassium (3.5-5.1) mmol/L Chloride (98-107) mmol/L Carbon Dioxide (22-30) mmol/L Anion Gap mmol/L BUN (9-20) mg/dL Creatinine (0.66-1.25) mg/dL Est GFR (CKD-EPI)AfAm (>60 ml/min/1.73 sqM) Est GFR (CKD-EPI)NonAf (>60 ml/min/1.73 sqM) Glucose (74-99) mg/dL POC Glucose (mg/dL) 63 L (75-99) mg/dL POC Glu Mortgage Consultant ID Karime Otto Calcium (8.4-10.2) mg/dL Total Bilirubin (0.2-1.3) mg/dL AST (17-59) U/L ALT (21-72) U/L Alkaline Phosphatase (38-126) U/L Total Protein (6.3-8.2) g/dL Albumin (3.5-5.0) g/dL Urine Color Urine Appearance (Clear) Urine pH (5.0-8.0) Ur Specific Ripley (1.001-1.035) Urine Protein (Negative) Urine Glucose (UA) (Negative) Urine Ketones (Negative) Urine Blood (Negative) Urine Nitrite (Negative) Urine Bilirubin (Negative) Urine Urobilinogen (<2.0) mg/dL Ur Leukocyte Esterase (Negative) Urine RBC (0-5) /hpf Urine WBC (0-5) /hpf Hyaline Casts (0-2) /lpf Urine Mucus (None) /hpf Digoxin ng/mL Salicylates mg/dL Urine Opiates Screen (NotDetected) Ur Oxycodone Screen (NotDetected) Urine Methadone Screen (NotDetected) Ur Propoxyphene Screen (NotDetected) Acetaminophen ug/mL Ur Barbiturates Screen (NotDetected) U Tricyclic Antidepress (NotDetected) Ur Phencyclidine Scrn (NotDetected) Ur Amphetamines Screen (NotDetected) U Methamphetamines Scrn (NotDetected) U Benzodiazepines Scrn (NotDetected) Urine Cocaine Screen (NotDetected) U Marijuana (THC) Screen (NotDetected) Serum Alcohol mg/dL - EKG Data -: EKG Interpreted by Or EKG Comments: EKG obtained at 4:15 AM, rate is 84, rhythm is ventricular paced, there are no acute ST elevations or depressions, no QT prolongation. Critical Care Time Critical Care Time: Yes Total Critical Care Time: 45 Disposition Clinical Impression: Insulin overdose Disposition: ADMITTED IP TO THIS HOSP
[2018-04-01 04:37] LABS: Glucose,Whole Blood 221 mg/dL (75-99)
[2018-04-01 04:37] LABS: Basophils % (A) 0 %; Eosinophils # (A) 0.2 k/uL (0-0.7); Eosinophils % (A) 2 %; HCT 40.8 % (39.0-53.0); HGB 12.9 gm/dL (13.0-17.5); Hypochromasia Slight; Lymphocytes # (A) 1.1 k/uL (1.0-4.8); Lymphocytes % (A) 16 %; MCH 26.8 pg (25.0-35.0); MCHC 31.6 g/dL (31.0-37.0); Monocytes # (A) 0.3 k/uL (0-1.0); Monocytes % (A) 4 %; Neutrophils # (A) 5.5 k/uL (1.3-7.7); Neutrophils % (A) 76 %; Platelet Count 260 k/uL (150-450); RBC 4.81 m/uL (4.30-5.90); RDW 15.5 % (11.5-15.5); WBC 7.3 k/uL (3.8-10.6)
[2018-04-01 04:47] LABS: ALT 42 U/L (21-72); AST 33 U/L (17-59); Acetaminophen <10.0 ug/mL; Albumin 3.4 g/dL (3.5-5.0); Alcohol <10 mg/dL; Alkaline Phosphatase 215 U/L (38-126); Anion Gap 9 mmol/L; Blood Urea Nitrogen 35 mg/dL (9-20); Calcium 9.5 mg/dL (8.4-10.2); Carbon Dioxide 22 mmol/L (22-30); Chloride 105 mmol/L (98-107); Digoxin <0.4 ng/mL; Glucose 75 mg/dL (74-99); Salicylate <1.0 mg/dL; Sodium 136 mmol/L (137-145); Total Bilirubin 0.4 mg/dL (0.2-1.3); Total Protein 6.4 g/dL (6.3-8.2)
[2018-04-01 04:48] LABS: MCV 84.8 fL (80.0-100.0)
[2018-04-01 04:53] LABS: Glucose,Whole Blood 151 mg/dL (75-99)
[2018-04-01 04:55] LABS: INR 1.2 (<1.2); Partial Thromboplastin Time 22.5 sec (22.0-30.0); Prothrombin Time 11.2 sec (9.0-12.0)
[2018-04-01] MEDS ORDERED: DEXTROSE 10% IN WATER 1,000 ML IV ONE (05:05)
[2018-04-01] MEDS ORDERED: Potassium Replacement Protocol 1 EACH MISC MISCELLANE PRN (05:08)
[2018-04-01 05:09] LABS: Glucose,Whole Blood 67 mg/dL (75-99)
[2018-04-01 05:26] LABS: Glucose,Whole Blood 44 mg/dL (75-99)
[2018-04-01 05:26] LABS: Glucose,Whole Blood 39 mg/dL (75-99)
[2018-04-01 05:32] LABS: Glucose,Whole Blood 207 mg/dL (75-99)
[2018-04-01 06:04] LABS: Glucose,Whole Blood 125 mg/dL (75-99)
[2018-04-01 06:09] LABS: Appearance,Urine Clear (Clear); Bilirubin,Urine Negative (Negative); Blood,Urine Small (Negative); Color,Urine Yellow; Glucose,Urine (UA) Trace (Negative); Hyaline Casts,Urine 8 /lpf (0-2); Ketones,Urine Negative (Negative); Leukocyte Esterase,Urine Negative (Negative); Mucus,Urine Rare /hpf; Nitrite,Urine Negative (Negative); PH, Urine 5.5 (5.0-8.0); Protein,Urine 2+ (Negative); RBC,Urine 1 /hpf (0-5); Urobilinogen,Urine <2.0 mg/dL (<2.0); WBC,Urine 1 /hpf (0-5)
[2018-04-01 06:15] LABS: Amphetamine Screen,Urine Not Detected (NotDetected); Barbiturate Screen,Urine Detected (NotDetected); Benzodiazepines Screen,Urine Not Detected (NotDetected); Cocaine Screen,Urine Not Detected (NotDetected); Methadone Screen, Urine Not Detected (NotDetected); Opiate Screen,Urine Not Detected (NotDetected); Oxycodone Screen, Urine Not Detected (NotDetected); Phencyclidine Screen,Urine Not Detected (NotDetected); Tricyclic Antidepressant,Urine Not Detected (NotDetected); Urn Cannabinoid Scrn Not Detected (NotDetected)
[2018-04-01] MEDS: POTASSIUM CHLORIDE 10 MEQ in WATER FOR INJECTION 1 100ML.BAG IVPB SCH ×4 (06:22→12:30)
[2018-04-01 06:46] LABS: Glucose,Whole Blood 141 mg/dL (75-99)
[2018-04-01 06:46] LABS: Glucose,Whole Blood 50 mg/dL (75-99)
[2018-04-01 06:59] LABS: Glucose,Whole Blood 99 mg/dL (75-99)
[2018-04-01] MEDS ORDERED: OCTREOTIDE 100 MCG in SODIUM CHLORIDE 0.9% 100 ML IVPB ONE (07:00)
[2018-04-01] MEDS ORDERED: NALOXONE 0.4 MG/ML 1 ML VIAL IV PRN (07:18)
[2018-04-01 07:37] LABS: Glucose,Whole Blood 63 mg/dL (75-99)
[2018-04-01 08:02] LABS: Glucose,Whole Blood 202 mg/dL (75-99)
[2018-04-01 08:33] LABS: Glucose,Whole Blood 82 mg/dL (75-99)
--- NOTE | 2018-04-01 08:49 | P.CNPUL ---
History of Present Illness Consult date: 04/01/18 Reason for consult: other Chief complaint: Intentional insulin overdose, suicidal attempt History of present illness: This is a 42-year-old white male patient who was brought in to the emergency department per EMS for evaluation of intentional overdose. EMS was dispatched to the patient's home after his called 911. Patient reportedly intentionally overdose on insulin, taking both of his NovoLog and his Lantus, he had to fall NovoLog and Lantus pens, and he took full doses at the same time. When EMS arrived patient was diaphoretic, somewhat and unresponsive. Blood sugar was less than 50, she was given an amp of 50% dextrose is transported to the emergency department. Emergency department he continues to have Hypoglycemia, and has received multiple doses of 50% dextrose intravenously , and he is currently on 10% dextrose infusion at a rate of 50 ML per hour, in addition to D5 0.9 normal saline at a rate of 150 ML per hour. Poison control was consulted, and they recommended a dose of octreotide 100 g, which was given. Apparently patient has history of anxiety, depression and PTSD with previous suicidal attempts, other medical history includes asthma, coronary artery disease with previous coronary artery bypass grafting, ischemic cardiomyopathy with placement of biventricular pacemaker/AICD, heart failure, previous episode of CVA, diabetes mellitus, GERD, hypertension, hyperlipidemia, previous episode of myocardial infarction, osteoarthritis, pneumonia, sleep apnea with no device. Also positive for previous history of MRSA infection in his wounds on his legs. EKG showed paced rhythm. Labs showed diabetes 0.3, Hemoglobin of 12.9, INR 1.2, Serum Sodium Was 136, Potassium Is 3.0, Chloride Is 105, CO2 Was 22, BUN of 35, creatinine is 0.90, urine drug screen was as a for barbiturates, salicylate level was less than 1.0, serum alcohol was less than 10, and serum acetaminophen level was less than 10. Patient was admitted to the intensive care unit, he is somnolent, he is able to open his eyes to verbal stimulation, and give 1 word answers, but she is drifting back to sleep, was able to eat breakfast this morning when he was more awake, and is having blood sugar checks every 30-60 minutes. Is hemodynamically stable, afebrile, currently on 2 L per nasal cannula, 97%, no respiratory difficulty, and sounds are diminished to auscultation, with only a few scattered rhonchi. He is in suicidal precautions, as a sitter at the bedside. Review of Systems All systems: negative Constitutional: Denies chills, Denies fever Eyes: denies blurred vision, denies pain Ears, nose, mouth and throat: Denies headache, Denies sore throat Cardiovascular: Denies chest pain, Denies shortness of breath Respiratory: Denies cough Gastrointestinal: Denies abdominal pain, Denies diarrhea, Denies nausea, Denies vomiting Musculoskeletal: Denies myalgias Integumentary: Denies pruritus, Denies rash Neurological: Denies numbness, Denies weakness Psychiatric: Denies anxiety, Denies depression Endocrine: Denies fatigue, Denies weight change Past Medical History Past Medical History: Asthma, Coronary Artery Disease (CAD), Chest Pain / Angina , Heart Failure, CVA/TIA, Diabetes Mellitus, GERD/Reflux, Hyperlipidemia, Hypertension, Myocardial Infarction (AZ), Osteoarthritis (OA), Pneumonia, Skin Disorder, Sleep Apnea/CPAP/BIPAP Additional Past Medical History / Comment(s): multiple vessel CAD, ischemic cardiomyopathy, diabetic neuropathy bilateral hands and feet, hypertensive cardiovascular disease, SHELIA with no device, chronic gastritis, degenerative disc disease, chronic back pain, depression with hx of suicide attempts, gastroparesis, psoriasis, UTI, migraines, TIA, PUD, hiatal hernia, L rotator cuff tear, bronchitis, pseudoaneurysm L groin post procedure. Last Myocardial Infarction Date:: May 2017 History of Any Multi-Drug Resistant Organisms: MRSA Date of last positivie culture/infection: 11/05/2017 (Culture done at [facility]) MDRO Source:: legs Past Surgical History: AICD, Appendectomy, Cholecystectomy, Heart Catheterization With Stent, Hernia Repair Additional Past Surgical History / Comment(s): Pt has had multiple cardiac procedures- caths/stents/PTCA, last stent placed at 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 Date of Last Stent Placement:: 05/25/2017 Type of Cardiac Device: Biventricular Pacemaker, AICD Device Placement Date:: 09/19/15 Past Psychological History: Anxiety, Depression, PTSD Smoking Status: Never smoker - Past Family History Mother Family Medical History: Coronary Artery Disease (CAD), Myocardial Infarction (AZ ) Additional Family Medical History / Comment(s): 7 AZ and faulty heart valve. Pt does not know the age when mother had her AZ's. Father History Unknown: Yes Additional Family Medical History / Comment(s): Does not know who father is. Brother(s) Family Medical History: Cancer, Congestive Heart Failure (CHF), Myocardial Infarction (AZ) Additional Family Medical History / Comment(s): Parkinsons. Pt does not know at what age his brother had an AZ. Patient's other brother has lung CA Patient has Family Medical History: No Reported History Additional Family Medical History / Comment(s): There is a strong family history for heart disease, hypertension, and diabetes. Medications and Allergies Home Medications Medication Instructions Recorded Confirmed Type ARIPiprazole [ARIPiprazole Odt] 15 mg PO HS@209910/27/17 04/01/18 History Clopidogrel [Plavix] 75 mg PO DAILY@79912/03/17 04/01/18 History Metoprolol Succinate [Toprol XL] 25 mg PO DAILY@79912/03/17 04/01/18 History Sertraline [Zoloft] 200 mg PO DAILY@79912/05/17 04/01/18 History Rosuvastatin [Crestor] 20 mg PO HS@209912/30/17 04/01/18 History Apixaban [Eliquis] 5 mg PO BID@0800,1700 02/01/18 04/01/18 History Digoxin [Digitek] 125 mcg PO DAILY@79902/01/18 04/01/18 History Gabapentin [Neurontin] 400 mg PO TID@0600,1400,209902/01/18 04/01/18 History Lisinopril [Zestril] 5 mg PO DAILY@79902/01/18 04/01/18 History Spironolactone [Aldactone] 25 mg PO DAILY@0802/01/18 04/01/18 History Torsemide [Demadex] 40 mg PO BID 02/01/18 04/01/18 History Aspirin 81 mg PO DAILY chew 02/03/18 04/01/18 Rx Albuterol Inhaler [Ventolin Hfa 2 puff INHALATION RT-Q6H PRN 04/01/18 04/01/18 History Inhaler] Insulin Aspart [NovoLOG 6 unit SQ AC-TID 04/01/18 04/01/18 History (formulary)] Insulin Glargine [Lantus] 27 unit SQ HS 04/01/18 04/01/18 History Pantoprazole [Protonix] 40 mg PO DAILY 04/01/18 04/01/18 History Primidone [Mysoline] 100 mg PO HS 04/01/18 04/01/18 History Allergies Allergy/AdvReac Type Severity Reaction Status Date / Time erythromycin base Allergy Severe Rash/Hives Verified 04/01/18 07:56 [Erythromycin Base] cephalexin monohydrate Allergy Unknown Rash/Hives Verified 04/01/18 07:56 [From Keflex] codeine Allergy Unknown Unknown Verified 04/01/18 07:56 meclizine Allergy Unknown Unknown Verified 04/01/18 07:56 Penicillins Allergy Unknown Rash/Hives Verified 04/01/18 07:56 shellfish derived Allergy Unknown Anaphylaxis Verified 04/01/18 07:56 Fish Containing Products Allergy Anaphylaxis Verified 04/01/18 07:56 [Fish] Iodinated Contrast- Oral and Allergy Anaphylaxis Verified 04/01/18 07:56 IV Dye naproxen AdvReac Unknown Compromises Verified 04/01/18 07:56 Kidney Function atorvastatin calcium AdvReac Myalgia Verified 04/01/18 07:56 [From Lipitor] glucosamine AdvReac Unknown Verified 04/01/18 07:56 hydrocodone [From Martha] AdvReac Rapid Verified 04/01/18 07:56 Heart Rate Physical Exam Vitals: Vital Signs Temp Pulse Resp BP Pulse Ox 04/01/18 08:00 68 18 141/75 98 04/01/18 07:41 75 18 114/64 97 04/01/18 07:00 74 18 121/82 98 04/01/18 06:00 73 18 116/79 98 04/01/18 05:00 60 18 137/85 98 04/01/18 04:11 97.4 F L 84 16 132/81 96 Intake and Output 11/12/0904/01/18 04/01/18 22:59 06:59 14:59 Other: Weight 126.099 kg GENERAL EXAM: Patient is somnolent, does open eyes to verbal stimulation, but drifts back to sleep, is able to give 1 word answers comfortable in no apparent distress. HEAD: Normocephalic/atraumatic. EYES: Normal reaction of pupils, equal size. Conjunctiva pink, sclera white. NOSE: Clear with pink turbinates. THROAT: No erythema or exudates. NECK: No masses, no JVD, no thyroid enlargement, no adenopathy. CHEST: No chest wall deformity. Symmetrical expansion. LUNGS: Equal air entry with a few scattered rhonchi, no wheezing or crackles noted CVS: Regular rate and rhythm, normal S1 and S2, no gallops, no murmurs, no rubs ABDOMEN: Soft, nontender. No hepatosplenomegaly, normal bowel sounds, no guarding or rigidity. EXTREMITIES: No clubbing, no edema, no cyanosis, 2+ pulses and upper and lower extremities. Patient has scabbed areas on his left lower extremity below the knee MUSCULOSKELETAL: Muscle strength and tone normal. SPINE: No scoliosis or deformity SKIN: No rashes CENTRAL NERVOUS SYSTEM: Alert and oriented -1. No focal deficits, tone is normal in all 4 extremities. PSYCHIATRIC: Unable to assess Results - Laboratory Findings CBC and BMP: 04/01/18 04:20 04/01/18 04:20 PT/INR, D-dimer PT 11.2 sec (9.0-12.0) 04/01/18 04:20 INR 1.2 (<1.2) H 04/01/18 04:20 Abnormal lab findings: Abnormal Labs 04/01/18 04/01/18 04/01/18 04:20 04:20 04:20 Hgb 12.9 L INR 1.2 H Sodium 136 L Potassium 3.0 L BUN 35 H POC Glucose (mg/dL) Alkaline Phosphatase 215 H Albumin 3.4 L Urine Protein Urine Glucose (UA) Urine Blood Hyaline Casts Urine Mucus Ur Barbiturates Screen 04/01/18 04/01/18 04/01/18 04:23 04:37 04:52 Hgb INR Sodium Potassium BUN POC Glucose (mg/dL) 60 L 221 H 151 H Alkaline Phosphatase Albumin Urine Protein Urine Glucose (UA) Urine Blood Hyaline Casts Urine Mucus Ur Barbiturates Screen 04/01/18 04/01/18 04/01/18 05:08 05:24 05:25 Hgb INR Sodium Potassium BUN POC Glucose (mg/dL) 67 L 44 L 39 L Alkaline Phosphatase Albumin Urine Protein Urine Glucose (UA) Urine Blood Hyaline Casts Urine Mucus Ur Barbiturates Screen 04/01/18 04/01/18 04/01/18 05:31 05:44 05:49 Hgb INR Sodium Potassium BUN POC Glucose (mg/dL) 207 H 125 H Alkaline Phosphatase Albumin Urine Protein 2+ H Urine Glucose (UA) Trace H Urine Blood Small H Hyaline Casts 8 H Urine Mucus Rare H Ur Barbiturates Screen Detected H 04/01/18 04/01/18 04/01/18 06:04 06:26 07:17 Hgb INR Sodium Potassium BUN POC Glucose (mg/dL) 50 L 141 H 63 L Alkaline Phosphatase Albumin Urine Protein Urine Glucose (UA) Urine Blood Hyaline Casts Urine Mucus Ur Barbiturates Screen 04/01/18 08:00 Hgb INR Sodium Potassium BUN POC Glucose (mg/dL) 202 H Alkaline Phosphatase Albumin Urine Protein Urine Glucose (UA) Urine Blood Hyaline Casts Urine Mucus Ur Barbiturates Screen - Diagnostic Findings Additional studies: EKG reviewed Assessment and Plan Plan: Assessment: #1. Insulin overdose, as a result of intentional suicidal attempt #2. Hypoglycemia #3. Anxiety, depression, PTSD, previous episodes of suicidal attempts #4. History of bronchial asthma, the severity of which is unknown at this time #5. History of coronary artery disease, with previous bypass grafting, and multiple stents #6. Ischemic cardiomyopathy #7. Diabetes mellitus with diabetic neuropathy, and gastroparesis #8. Chronic congestive heart failure, was systolic dysfunction #9. Previous episode of CVA #10. Hypertension, hyperlipidemia, previous episodes of myocardial infarction #11. Obstructive sleep apnea not on CPAP #12. GERD, with chronic gastritis #13. Osteoarthritis #14. Previous episode of MRSA infection in the wound in his legs from May 2017 Plan: Continue 10% dextrose at 50 ML per hour, continue current IV fluids of D5.9 normal saline at 150, continue with blood sugar checks every 30-60 minutes, patient was able to eat breakfast this morning, we will maintain aspiration precautions, when the patient is awake he will be encouraged to take in some oral intake. Poison control was consulted, patient was given a dose of octreotide per their recommendation, from pulmonary perspective patient's oxygenation is stable, currently on 2 L per nasal cannula. No fever, no chills , he is hemodynamically stable, continue close monitoring, maintaining suicidal precautions, there is a vehicle safety inspector at the bedside, psychiatry will be consulted, patient will remain in the intensive care unit for further monitoring. I performed a history & physical examination of the patient and discussed their management with my nurse practitioner, Beronica Núñez. I reviewed the nurse practitioner's note and agree with the documented findings and plan of care. Lung sounds are positive diminished breath sounds. The findings and the impression was discussed with the patient. I attest to the documentation by the nurse practitioner. Time with Patient: Greater than 30
[2018-04-01 09:05] LABS: Glucose,Whole Blood 62 mg/dL (75-99)
[2018-04-01 09:33] LABS: Glucose,Whole Blood 128 mg/dL (75-99)
[2018-04-01] MEDS: PANTOPRAZOLE 40 MG/10 ML VIAL IVP SCH (10:01)
[2018-04-01 10:04] LABS: Glucose,Whole Blood 86 mg/dL (75-99)
[2018-04-01 10:26] LABS: Glucose,Whole Blood 69 mg/dL (75-99)
[2018-04-01 10:47] LABS: Glucose,Whole Blood 59 mg/dL (75-99)
[2018-04-01 11:07] LABS: Glucose,Whole Blood 121 mg/dL (75-99)
[2018-04-01 11:48] LABS: Glucose,Whole Blood 88 mg/dL (75-99)
[2018-04-01] MEDS: DEXTROSE 50%-WATER 50 ML SYRINGE IVP PRN ×2 (12:03→15:58)
[2018-04-01 12:05] LABS: Glucose,Whole Blood 72 mg/dL (75-99)
[2018-04-01 12:20] LABS: Glucose,Whole Blood 64 mg/dL (75-99)
[2018-04-01 12:37] LABS: Glucose,Whole Blood 145 mg/dL (75-99)
[2018-04-01 13:05] LABS: Glucose,Whole Blood 118 mg/dL (75-99)
--- NOTE | 2018-04-01 13:21 | XR ---
EXAMINATION TYPE: XR chest 1V portable DATE OF EXAM: 04/01/2018 CLINICAL HISTORY: Difficulty breathing possible aspiration. TECHNIQUE: Single AP portable frontal view of the chest is obtained. COMPARISON: Chest x-ray from February 01, 2018 FINDINGS: There is redemonstration of cardiomegaly with multi lead pacemaker/AICD. Patchy right medi al basilar opacity may be present just above diaphragm. Left lung is clear. No pleural effusion or pn eumothorax is seen bilaterally. Osseous structures are intact. IMPRESSION: Possible early right basilar acute infiltrate. Progress two-view chest x-ray study advise robert
[2018-04-01 13:34] LABS: Glucose,Whole Blood 133 mg/dL (75-99)
[2018-04-01 14:03] LABS: Glucose,Whole Blood 120 mg/dL (75-99)
[2018-04-01 14:39] LABS: Glucose,Whole Blood 96 mg/dL (75-99)
[2018-04-01 15:05] LABS: Glucose,Whole Blood 81 mg/dL (75-99)
[2018-04-01 15:30] VITALS: BMI 36.6
--- NOTE | 2018-04-01 15:30 | CT ---
EXAMINATION TYPE: CT brain wo con DATE OF EXAM: 04/01/2018 COMPARISON: 02/01/2018 INDICATION: Confusion on blood thinner, hypoglycemia. DLP: 1227.4 mGycm, Automated exposure control for dose reduction was used. CONTRAST: None CT of the brain is performed utilizing 3 mm thick sections through the posterior fossa and 3 mm thick sections through the remaining calvarium. Study is performed within 24 hours of arrival to the hosp [facility]. No abnormal hyperdensity is present to suggest an acute intracranial hemorrhage. No mass lesion is evident. No acute infarcts are evident. Ventricles and sulci are mildly prominent for the patient age. Paranasal sinuses and mastoid air cells within the [id number] are clear. IMPRESSIONS: 1. Age-related atrophy.
[2018-04-01 15:35] LABS: Glucose,Whole Blood 77 mg/dL (75-99)
[2018-04-01] MEDS ORDERED: ALBUTEROL NEBULIZED 2.5 MG/3 ML INHALATION PRN (15:40)
[2018-04-01] MEDS ORDERED: HEPARIN SODIUM,PORCINE 5,000 UNIT/ML 1 ML VIAL SQ SCH (16:00)
[2018-04-01 16:07] LABS: Glucose,Whole Blood 67 mg/dL (75-99)
[2018-04-01 16:21] LABS: Glucose,Whole Blood 152 mg/dL (75-99)
[2018-04-01 16:47] LABS: Glucose,Whole Blood 95 mg/dL (75-99)
[2018-04-01 17:30] LABS: Glucose,Whole Blood 82 mg/dL (75-99)
[2018-04-01 17:56] LABS: Glucose,Whole Blood 100 mg/dL (75-99)
[2018-04-01] MEDS: APIXABAN 5 MG TAB PO SCH (18:01)
[2018-04-01] MEDS: TORSEMIDE 20 MG TAB PO SCH (18:05)
[2018-04-01 18:30] LABS: Glucose,Whole Blood 88 mg/dL (75-99)
[2018-04-01] MEDS ORDERED: ACETAMINOPHEN TAB 325 MG TAB PO PRN (19:11)
[2018-04-01 19:12] LABS: Glucose,Whole Blood 88 mg/dL (75-99)
--- NOTE | 2018-04-01 20:00 | P.HPIM ---
History of Present Illness This is a pleasant 42 years old male with past medical history of diabetes mellitus on insulin, history of coronary artery disease with recent heart attack as this last joint is been treated for that at [facility], he is status post cardiac cath and stent and defibrillator. Congestive heart failure, GERD, hyperlipidemia, hypertension, osteoarthritis, sleep apnea entering bipap. diabetic neuropathy in both hands and feet. chronic back pain, depression with history of suicidal attempt, gastroparesis, migraine. who presents because of apparently overdose of insulin and altered mental status. patient could not provide information and was taken from staff and the at bedside. states she was sleeping with him in the same room and different bit when she got the message and a knot on the door by his friend he tested her that he is going to miss her and that he is sorry. sewing the family tried to wake him up he was drowsy and less responsive, and the found to empty insulin pain. thinks that he took extra doses of insulin but she is not sure how much was that. usually he takes novolog 6 units with meals and lantus 27 units at bed time. . He is a known history of suicidal attempts, states over the last 8 years she lived with him he had performed suicidal attempts and he follow -up with [facility]/psychology who referred him to psychiatrist last couple weeks and actually he has an appointment with psychiatrist to today if he didn't come to the hospital. Patient as per was doing well until last 2017 when he got heart attack and he went to [facility] after that has been discharged and still doing well until about 2 weeks ago when his [id number] has in this hospital after that she started to deteriorate and he was still in his and he is here in his 3 month old token to him and telling him he needs him. pt was admitted to the ICU on admission, pt had CT of the brain which was negative for acute hemorrhage , his has glucose in 30s on admission , he was receiving D50 and D5 infusion , with octreotide, which is also recommended by from the poison center when i talked to him. CXR: right Lower lobe infiltrate. pt was started on ceftriaxone and zithromax in ED. Na 136, potassium 3.0, creatinine 0.9. WBC 7.3K , rest of CBC is unremarkable. vitals are stable and pt is afebrile on admission Review of Systems Review of system is not applicable because of patient's mental status Past Medical History Past Medical History: Asthma, Coronary Artery Disease (CAD), Chest Pain / Angina , Heart Failure, CVA/TIA, Diabetes Mellitus, GERD/Reflux, Hyperlipidemia, Hypertension, Myocardial Infarction (LA), Osteoarthritis (OA), Pneumonia, Skin Disorder, Sleep Apnea/CPAP/BIPAP Additional Past Medical History / Comment(s): multiple vessel CAD, ischemic cardiomyopathy, diabetic neuropathy bilateral hands and feet, hypertensive cardiovascular disease, SHELIA with no device, chronic gastritis, degenerative disc disease, chronic back pain, depression with hx of suicide attempts, gastroparesis, psoriasis, UTI, migraines, TIA, PUD, hiatal hernia, L rotator cuff tear, bronchitis, pseudoaneurysm L groin post procedure. Last Myocardial Infarction Date:: May 2017 History of Any Multi-Drug Resistant Organisms: MRSA Date of last positivie culture/infection: 11/05/2017 (Culture done at [facility]) MDRO Source:: legs Past Surgical History: AICD, Appendectomy, Cholecystectomy, Heart Catheterization With Stent, Hernia Repair Additional Past Surgical History / Comment(s): Pt has had multiple cardiac procedures- caths/stents/PTCA, last stent placed at [facility] - May 2017, SAVANNAH, R inguinal hernia repair, umbilical hernia repair, right orchiectomy due to necrosis, right hand surgery r/t injury, colonoscopy, cystoscopy ( scraped bladder parrish), stents 10/2017, Past Anesthesia/Blood Transfusion Reactions: No Reported Reaction Additional Past Anesthesia/Blood Transfusion Reaction / Comment(s): . Date of Last Stent Placement:: 05/25/2017 Type of Cardiac Device: Biventricular Pacemaker, AICD Device Placement Date:: 09/19/15 Past Psychological History: Anxiety, Depression, PTSD Smoking Status: Never smoker - Past Family History Mother Family Medical History: Coronary Artery Disease (CAD), Myocardial Infarction (LA ) Additional Family Medical History / Comment(s): 7 LA and faulty heart valve. Pt does not know the age when mother had her LA's. Father History Unknown: Yes Additional Family Medical History / Comment(s): Does not know who father is. Brother(s) Family Medical History: Cancer, Congestive Heart Failure (CHF), Myocardial Infarction (LA) Additional Family Medical History / Comment(s): Parkinsons. Pt does not know at what age his brother had an LA. Patient's other brother has lung CA Patient has Family Medical History: No Reported History Additional Family Medical History / Comment(s): There is a strong family history for heart disease, hypertension, and diabetes. Medications and Allergies Home Medications Medication Instructions Recorded Confirmed Type RX: ARIPiprazole [ARIPiprazole Odt] 15 mg PO HS@209910/27/17 04/01/18 History RX: Clopidogrel [Plavix] 75 mg PO DAILY@79912/03/17 04/01/18 History RX: Metoprolol Succinate [Toprol 25 mg PO DAILY@79912/03/17 04/01/18 History XL] RX: Sertraline [Zoloft] 200 mg PO DAILY@79912/05/17 04/01/18 History RX: Rosuvastatin [Crestor] 20 mg PO HS@209912/30/17 04/01/18 History RX: Apixaban [Eliquis] 5 mg PO BID@0800,1700 02/01/18 04/01/18 History RX: Digoxin [Digitek] 125 mcg PO DAILY@79902/01/18 04/01/18 History RX: Gabapentin [Neurontin] 400 mg PO TID@0600,1400,2100 02/01/18 04/01/18 History RX: Lisinopril [Zestril] 5 mg PO DAILY@0802/01/18 04/01/18 History RX: Spironolactone [Aldactone] 25 mg PO DAILY@79902/01/18 04/01/18 History RX: Torsemide [Demadex] 40 mg PO BID 02/01/18 04/01/18 History RX: Aspirin 81 mg PO DAILY chew 02/03/18 04/01/18 Rx Albuterol Inhaler [Ventolin Hfa 2 puff INHALATION RT-Q6H PRN 04/01/18 04/01/18 History Inhaler] Insulin Aspart [NovoLOG 6 unit SQ AC-TID 04/01/18 04/01/18 History (formulary)] Pantoprazole [Protonix] 40 mg PO DAILY 04/01/18 04/01/18 History Primidone [Mysoline] 100 mg PO HS 04/01/18 04/01/18 History RX: Insulin Glargine [Lantus] 27 unit SQ HS 04/01/18 04/01/18 History Allergies Allergy/AdvReac Type Severity Reaction Status Date / Time erythromycin base Allergy Severe Rash/Hives Verified 04/01/18 07:56 [Erythromycin Base] cephalexin monohydrate Allergy Unknown Rash/Hives Verified 04/01/18 07:56 [From Keflex] codeine Allergy Unknown Unknown Verified 04/01/18 07:56 meclizine Allergy Unknown Unknown Verified 04/01/18 07:56 Penicillins Allergy Unknown Rash/Hives Verified 04/01/18 07:56 shellfish derived Allergy Unknown Anaphylaxis Verified 04/01/18 07:56 Fish Containing Products Allergy Anaphylaxis Verified 04/01/18 07:56 [Fish] Iodinated Contrast- Oral and Allergy Anaphylaxis Verified 04/01/18 07:56 IV Dye naproxen AdvReac Unknown Compromises Verified 04/01/18 07:56 Kidney Function atorvastatin calcium AdvReac Myalgia Verified 04/01/18 07:56 [From Lipitor] glucosamine AdvReac Unknown Verified 04/01/18 07:56 hydrocodone [From [place]] AdvReac Rapid Verified 04/01/18 07:56 Heart Rate Physical Exam Vitals: Vital Signs Temp Pulse Pulse Resp BP BP Pulse Ox 04/01/18 08:49 97.2 F L 82 24 107/68 95 04/01/18 08:00 68 18 141/75 98 04/01/18 07:41 75 18 114/64 97 04/01/18 07:00 74 18 121/82 98 04/01/18 06:00 73 18 116/79 98 04/01/18 05:00 60 18 137/85 98 04/01/18 04:11 97.4 F L 84 16 132/81 96 Intake and Output 03/31/18 04/01/18 04/01/18 22:59 06:59 14:59 Other: Weight 126.099 kg 105.9 kg GENERAL: The patient is sleepy and drowsy Hemovacs up to verbal stimuli son and answer some questions appropriately before go back to sleep and he has rapid deep breathing with acetone breath , obese HEENT: Pupils are round and equally reacting to light. EOMI. No scleral icterus. No conjunctival pallor. Normocephalic, atraumatic. No pharyngeal erythema. No thyromegaly. CARDIOVASCULAR: S1 and S2 present. No murmurs, rubs, or gallops. PULMONARY: Chest is clear to auscultation, no wheezing or crackles. ABDOMEN: Soft, nontender, nondistended, normoactive bowel sounds. No palpable organomegaly. MUSCULOSKELETAL: No joint swelling or deformity. EXTREMITIES: No cyanosis, clubbing, or pedal edema. NEUROLOGICAL: Gross neurological examination did not reveal any focal deficits. SKIN: No rashes. Results CBC & Chem 7: 04/01/18 04:20 04/01/18 15:58 Labs: Abnormal Lab Results - Last 24 Hours (Table) 04/01/18 04/01/18 04/01/18 Range/Units 04:20 04:20 04:20 Hgb 12.9 L (13.0-17.5) gm/dL INR 1.2 H (<1.2) Sodium 136 L (137-145) mmol/L Potassium 3.0 L (3.5-5.1) mmol/L BUN 35 H (9-20) mg/dL POC Glucose (mg/dL) (75-99) mg/dL Alkaline Phosphatase 215 H (38-126) U/L Albumin 3.4 L (3.5-5.0) g/dL Urine Protein (Negative) Urine Glucose (UA) (Negative) Urine Blood (Negative) Hyaline Casts (0-2) /lpf Urine Mucus (None) /hpf Ur Barbiturates Screen (NotDetected) 04/01/18 04/01/18 04/01/18 Range/Units 04:23 04:37 04:52 Hgb (13.0-17.5) gm/dL INR (<1.2) Sodium (137-145) mmol/L Potassium (3.5-5.1) mmol/L BUN (9-20) mg/dL POC Glucose (mg/dL) 60 L 221 H 151 H (75-99) mg/dL Alkaline Phosphatase (38-126) U/L Albumin (3.5-5.0) g/dL Urine Protein (Negative) Urine Glucose (UA) (Negative) Urine Blood (Negative) Hyaline Casts (0-2) /lpf Urine Mucus (None) /hpf Ur Barbiturates Screen (NotDetected) 04/01/18 04/01/18 04/01/18 Range/Units 05:08 05:24 05:25 Hgb (13.0-17.5) gm/dL INR (<1.2) Sodium (137-145) mmol/L Potassium (3.5-5.1) mmol/L BUN (9-20) mg/dL POC Glucose (mg/dL) 67 L 44 L 39 L (75-99) mg/dL Alkaline Phosphatase (38-126) U/L Albumin (3.5-5.0) g/dL Urine Protein (Negative) Urine Glucose (UA) (Negative) Urine Blood (Negative) Hyaline Casts (0-2) /lpf Urine Mucus (None) /hpf Ur Barbiturates Screen (NotDetected) 04/01/18 04/01/18 04/01/18 Range/Units 05:31 05:44 05:49 Hgb (13.0-17.5) gm/dL INR (<1.2) Sodium (137-145) mmol/L Potassium (3.5-5.1) mmol/L BUN (9-20) mg/dL POC Glucose (mg/dL) 207 H 125 H (75-99) mg/dL Alkaline Phosphatase (38-126) U/L Albumin (3.5-5.0) g/dL Urine Protein 2+ H (Negative) Urine Glucose (UA) Trace H (Negative) Urine Blood Small H (Negative) Hyaline Casts 8 H (0-2) /lpf Urine Mucus Rare H (None) /hpf Ur Barbiturates Screen Detected H (NotDetected) 04/01/18 04/01/18 04/01/18 Range/Units 06:04 06:26 07:17 Hgb (13.0-17.5) gm/dL INR (<1.2) Sodium (137-145) mmol/L Potassium (3.5-5.1) mmol/L BUN (9-20) mg/dL POC Glucose (mg/dL) 50 L 141 H 63 L (75-99) mg/dL Alkaline Phosphatase (38-126) U/L Albumin (3.5-5.0) g/dL Urine Protein (Negative) Urine Glucose (UA) (Negative) Urine Blood (Negative) Hyaline Casts (0-2) /lpf Urine Mucus (None) /hpf Ur Barbiturates Screen (NotDetected) 04/01/18 Range/Units 08:00 Hgb (13.0-17.5) gm/dL INR (<1.2) Sodium (137-145) mmol/L Potassium (3.5-5.1) mmol/L BUN (9-20) mg/dL POC Glucose (mg/dL) 202 H (75-99) mg/dL Alkaline Phosphatase (38-126) U/L Albumin (3.5-5.0) g/dL Urine Protein (Negative) Urine Glucose (UA) (Negative) Urine Blood (Negative) Hyaline Casts (0-2) /lpf Urine Mucus (None) /hpf Ur Barbiturates Screen (NotDetected) Assessment and Plan Assessment: acute hypoglycemia secondary to insulin over dose possible suicidal ideation depression the auditory hallucination pneumonia, could be community acquired pna. treating gram negative bact and atypical MO Plan: this is a 42 yo M who presents with hypoglycemia and possible suicidal ideation. pt is treated with glucose therapy and D50 , CT of the head is negative , critical care team are following the pt . sitter is present at bed side for 1:1 , psych consult is called. labs and medication are reviewed. continue with the same treatment , continue with symptomatic treatment , resume home medication , monitor lytes and vitals including glucose , cardiology consult is appreciated. c/w same antibioitc . GI and DVT prophylaxis , further recommendation based upon pt clinical course and progress DVT prophylaxis Eliquis GI prophylaxis protonix Prognosis is guarded
[2018-04-01 20:18] LABS: Glucose,Whole Blood 84 mg/dL (75-99)
[2018-04-01 20:46] LABS: Anion Gap 6 mmol/L; Blood Urea Nitrogen 28 mg/dL (9-20); Calcium 9.1 mg/dL (8.4-10.2); Carbon Dioxide 24 mmol/L (22-30); Chloride 104 mmol/L (98-107); Glucose 81 mg/dL (74-99); Potassium 5.2 mmol/L (3.5-5.1); Sodium 134 mmol/L (137-145)
[2018-04-01 20:59] LABS: Glucose,Whole Blood 93 mg/dL (75-99)
[2018-04-01] MEDS ORDERED: ARIPiprazole 15 MG TAB PO SCH (21:00)
[2018-04-01] MEDS ORDERED: PRIMIDONE 50 MG TAB PO SCH (21:00)
[2018-04-01] MEDS ORDERED: ROSUVASTATIN 20 MG PO SCH (22:00)
[2018-04-01] MEDS: GABAPENTIN 400 MG CAP PO SCH (22:04)
[2018-04-01 22:19] LABS: Glucose,Whole Blood 91 mg/dL (75-99)
[2018-04-01 23:28] LABS: Glucose,Whole Blood 103 mg/dL (75-99)
[2018-04-02 00:06] LABS: Glucose,Whole Blood 123 mg/dL (75-99)
[2018-04-02 01:06] LABS: Glucose,Whole Blood 118 mg/dL (75-99)
[2018-04-02 02:02] LABS: Glucose,Whole Blood 131 mg/dL (75-99)
[2018-04-02 03:07] LABS: Glucose,Whole Blood 147 mg/dL (75-99)
[2018-04-02 04:05] LABS: Glucose,Whole Blood 162 mg/dL (75-99)
[2018-04-02 04:50] LABS: Basophils % (A) 1 %; Eosinophils # (A) 0.2 k/uL (0-0.7); Eosinophils % (A) 2 %; HCT 40.8 % (39.0-53.0); HGB 12.5 gm/dL (13.0-17.5); Hypochromasia Moderate; Lymphocytes # (A) 1.3 k/uL (1.0-4.8); Lymphocytes % (A) 18 %; MCH 26.3 pg (25.0-35.0); MCHC 30.6 g/dL (31.0-37.0); MCV 85.8 fL (80.0-100.0); Monocytes # (A) 0.3 k/uL (0-1.0); Monocytes % (A) 4 %; Neutrophils # (A) 5.2 k/uL (1.3-7.7); Neutrophils % (A) 73 %; Platelet Count 267 k/uL (150-450); RBC 4.75 m/uL (4.30-5.90); RDW 15.6 % (11.5-15.5); WBC 7.1 k/uL (3.8-10.6)
[2018-04-02 05:04] LABS: ALT 42 U/L (21-72); AST 32 U/L (17-59); Albumin 3.2 g/dL (3.5-5.0); Alkaline Phosphatase 186 U/L (38-126); Anion Gap 7 mmol/L; Bilirubin, Delta 0.4 mg/dL (0.0-0.2); Bilirubin,Unconjugated 0.1 mg/dL (0.0-1.1); Blood Urea Nitrogen 29 mg/dL (9-20); Calcium 9.1 mg/dL (8.4-10.2); Carbon Dioxide 26 mmol/L (22-30); Chloride 102 mmol/L (98-107); Glucose 173 mg/dL (74-99); Magnesium 1.6 mg/dL (1.6-2.3); Phosphorus 5.2 mg/dL (2.5-4.5); Potassium 4.7 mmol/L (3.5-5.1); Sodium 135 mmol/L (137-145); Total Bilirubin 0.5 mg/dL (0.2-1.3); Total Protein 6.1 g/dL (6.3-8.2)
[2018-04-02 06:05] LABS: Glucose,Whole Blood 188 mg/dL (75-99)
[2018-04-02 07:45] LABS: Glucose,Whole Blood 203 mg/dL (75-99)
[2018-04-02] MEDS ORDERED: DIGOXIN 125 MCG TAB PO SCH (08:00)
[2018-04-02] MEDS ORDERED: SPIRONOLACTONE 25 MG TAB PO SCH (08:00)
[2018-04-02] MEDS ORDERED: SERTRALINE 100 MG TAB PO SCH (08:00)
[2018-04-02] MEDS ORDERED: METOPROLOL SUCCINATE (ER) 25 MG TAB.ER.24H PO SCH (08:00)
[2018-04-02] MEDS ORDERED: CLOPIDOGREL 75 MG TAB PO SCH (08:00)
[2018-04-02] MEDS ORDERED: LISINOPRIL 5 MG TAB PO SCH (08:00)
[2018-04-02] MEDS ORDERED: PANTOPRAZOLE 40 MG TABLET PO SCH (09:00)
--- NOTE | 2018-04-02 09:04 | P.PN ---
Subjective Progress Note Date: 04/02/18 Principal diagnosis: Intentional insulin overdose, suicidal attempt This is a 42-year-old white male patient who was brought in to the emergency department per EMS for evaluation of intentional overdose. EMS was dispatched to the patient's home after his called 911. Patient reportedly intentionally overdose on insulin, taking both of his NovoLog and his Lantus, he had to fall NovoLog and Lantus pens, and he took full doses at the same time. When EMS arrived patient was diaphoretic, somewhat and unresponsive. Blood sugar was less than 50, she was given an amp of 50% dextrose is transported to the emergency department. Emergency department he continues to have Hypoglycemia, and has received multiple doses of 50% dextrose intravenously , and he is currently on 10% dextrose infusion at a rate of 50 ML per hour, in addition to D5 0.9 normal saline at a rate of 150 ML per hour. Poison control was consulted, and they recommended a dose of octreotide 100 g, which was given. Apparently patient has history of anxiety, depression and PTSD with previous suicidal attempts, other medical history includes asthma, coronary artery disease with previous coronary artery bypass grafting, ischemic cardiomyopathy with placement of biventricular pacemaker/AICD, heart failure, previous episode of CVA, diabetes mellitus, GERD, hypertension, hyperlipidemia, previous episode of myocardial infarction, osteoarthritis, pneumonia, sleep apnea with no device. Also positive for previous history of MRSA infection in his wounds on his legs. EKG showed paced rhythm. Labs showed diabetes 0.3, Hemoglobin of 12.9, INR 1.2, Serum Sodium Was 136, Potassium Is 3.0, Chloride Is 105, CO2 Was 22, BUN of 35, creatinine is 0.90, urine drug screen was as a for barbiturates, salicylate level was less than 1.0, serum alcohol was less than 10, and serum acetaminophen level was less than 10. Patient was admitted to the intensive care unit, he is somnolent, he is able to open his eyes to verbal stimulation, and give 1 word answers, but she is drifting back to sleep, was able to eat breakfast this morning when he was more awake, and is having blood sugar checks every 30-60 minutes. Is hemodynamically stable, afebrile, currently on 2 L per nasal cannula, 97%, no respiratory difficulty, and sounds are diminished to auscultation, with only a few scattered rhonchi. He is in suicidal precautions, as a sitter at the bedside. On 04/02/2018 patient seen in follow-up in the intensive care unit. Patient is lethargic, easily arousable to command, he is in no acute distress. Current pulse ox on room air is 93%, hemodynamically patient is stable, patient is afebrile, no IV fluids, and has been tolerating oral intake, brain CT did not show any acute process. Lung sounds are clear to auscultation, no rhonchi no wheezes noted. These labs have been reviewed, WBC 7.1, hemoglobin is 12.5, sodium is 135, wrist electrotherapy renal profile is unremarkable. No new chest x-rays today. Patient is doing well, serum glucose is 173. Objective - Vital Signs Vital signs: Vital Signs Temp 98.1 F 04/02/18 04:00 Pulse 95 04/02/18 06:00 Resp 21 04/02/18 06:00 BP 134/94 04/02/18 06:00 Pulse Ox 93 L 04/02/18 06:00 Intake & Output 04/01/18 04/02/18 04/02/18 18:59 06:59 18:59 Intake Total 2230 520 Output Total 1050 2150 Balance 1180 -1630 Weight 105.9 kg 106 kg Intake: IV 70 Dextrose 10% in Water 1, 70 000 ml @ 50 mls/hr IV . Q20H ONE Rx#:[id number] Intake, IV Titration 1150 450 Amount Dextrose 10% in Water 1, 550 450 000 ml @ 50 mls/hr IV . Q20H ONE Rx#:[id number] Octreotide 100 mcg In 200 Sodium Chloride 0.9% 100 ml @ 200 mls/hr IVPB ONCE ONE Rx#:[id number] Potassium Chloride 10 meq 400 In Water For Injection 1 100ml.bag @ 100 mls/hr IVPB Q1HR JAKE Rx#: [id number] Oral 1080 Output: Urine 1050 2150 Other: Voiding Method Urinal # Voids 0 - Exam GENERAL EXAM: Patient is somnolent, does open eyes to verbal stimulation, but drifts back to sleep, comfortable in no apparent distress. HEAD: Normocephalic/atraumatic. EYES: Normal reaction of pupils, equal size. Conjunctiva pink, sclera white. NOSE: Clear with pink turbinates. THROAT: No erythema or exudates. NECK: No masses, no JVD, no thyroid enlargement, no adenopathy. CHEST: No chest wall deformity. Symmetrical expansion. LUNGS: Her breath sounds, no wheezing or crackles noted CVS: Regular rate and rhythm, normal S1 and S2, no gallops, no murmurs, no rubs ABDOMEN: Soft, nontender. No hepatosplenomegaly, normal bowel sounds, no guarding or rigidity. EXTREMITIES: No clubbing, no edema, no cyanosis, 2+ pulses and upper and lower extremities. Patient has scabbed areas on his left lower extremity below the knee MUSCULOSKELETAL: Muscle strength and tone normal. SPINE: No scoliosis or deformity SKIN: No rashes CENTRAL NERVOUS SYSTEM: Alert and oriented -1. No focal deficits, tone is normal in all 4 extremities. - Labs CBC & Chem 7: 04/02/18 04:34 04/02/18 04:34 Labs: Abnormal Lab Results - Last 24 Hours (Table) 04/01/18 04/01/18 04/01/18 Range/Units 08:53 09:22 10:15 Hgb (13.0-17.5) gm/dL MCHC (31.0-37.0) g/dL RDW (11.5-15.5) % Sodium (137-145) mmol/L Potassium (3.5-5.1) mmol/L BUN (9-20) mg/dL Glucose (74-99) mg/dL POC Glucose (mg/dL) 62 L 128 H 69 L (75-99) mg/dL Phosphorus (2.5-4.5) mg/dL Delta Bilirubin (0.0-0.2) mg/dL Alkaline Phosphatase (38-126) U/L Total Protein (6.3-8.2) g/dL Albumin (3.5-5.0) g/dL 04/01/18 04/01/18 04/01/18 Range/Units 10:35 10:55 11:54 Hgb (13.0-17.5) gm/dL MCHC (31.0-37.0) g/dL RDW (11.5-15.5) % Sodium (137-145) mmol/L Potassium (3.5-5.1) mmol/L BUN (9-20) mg/dL Glucose (74-99) mg/dL POC Glucose (mg/dL) 59 L 121 H 72 L (75-99) mg/dL Phosphorus (2.5-4.5) mg/dL Delta Bilirubin (0.0-0.2) mg/dL Alkaline Phosphatase (38-126) U/L Total Protein (6.3-8.2) g/dL Albumin (3.5-5.0) g/dL 04/01/18 04/01/18 04/01/18 Range/Units 12:08 12:27 12:54 Hgb (13.0-17.5) gm/dL MCHC (31.0-37.0) g/dL RDW (11.5-15.5) % Sodium (137-145) mmol/L Potassium (3.5-5.1) mmol/L BUN (9-20) mg/dL Glucose (74-99) mg/dL POC Glucose (mg/dL) 64 L 145 H 118 H (75-99) mg/dL Phosphorus (2.5-4.5) mg/dL Delta Bilirubin (0.0-0.2) mg/dL Alkaline Phosphatase (38-126) U/L Total Protein (6.3-8.2) g/dL Albumin (3.5-5.0) g/dL 04/01/18 04/01/18 04/01/18 Range/Units 13:23 13:52 15:55 Hgb (13.0-17.5) gm/dL MCHC (31.0-37.0) g/dL RDW (11.5-15.5) % Sodium (137-145) mmol/L Potassium (3.5-5.1) mmol/L BUN (9-20) mg/dL Glucose (74-99) mg/dL POC Glucose (mg/dL) 133 H 120 H 67 L (75-99) mg/dL Phosphorus (2.5-4.5) mg/dL Delta Bilirubin (0.0-0.2) mg/dL Alkaline Phosphatase (38-126) U/L Total Protein (6.3-8.2) g/dL Albumin (3.5-5.0) g/dL 04/01/18 04/01/18 04/01/18 Range/Units 15:58 16:08 17:43 Hgb (13.0-17.5) gm/dL MCHC (31.0-37.0) g/dL RDW (11.5-15.5) % Sodium (137-145) mmol/L Potassium 5.2 H (3.5-5.1) mmol/L BUN (9-20) mg/dL Glucose (74-99) mg/dL POC Glucose (mg/dL) 152 H 100 H (75-99) mg/dL Phosphorus (2.5-4.5) mg/dL Delta Bilirubin (0.0-0.2) mg/dL Alkaline Phosphatase (38-126) U/L Total Protein (6.3-8.2) g/dL Albumin (3.5-5.0) g/dL 04/01/18 04/01/18 04/01/18 Range/Units 20:02 23:17 23:56 Hgb (13.0-17.5) gm/dL MCHC (31.0-37.0) g/dL RDW (11.5-15.5) % Sodium 134 L (137-145) mmol/L Potassium 5.2 H (3.5-5.1) mmol/L BUN 28 H (9-20) mg/dL Glucose (74-99) mg/dL POC Glucose (mg/dL) 103 H 123 H (75-99) mg/dL Phosphorus (2.5-4.5) mg/dL Delta Bilirubin (0.0-0.2) mg/dL Alkaline Phosphatase (38-126) U/L Total Protein (6.3-8.2) g/dL Albumin (3.5-5.0) g/dL 04/02/18 04/02/18 04/02/18 Range/Units 00:55 01:51 02:56 Hgb (13.0-17.5) gm/dL MCHC (31.0-37.0) g/dL RDW (11.5-15.5) % Sodium (137-145) mmol/L Potassium (3.5-5.1) mmol/L BUN (9-20) mg/dL Glucose (74-99) mg/dL POC Glucose (mg/dL) 118 H 131 H 147 H (75-99) mg/dL Phosphorus (2.5-4.5) mg/dL Delta Bilirubin (0.0-0.2) mg/dL Alkaline Phosphatase (38-126) U/L Total Protein (6.3-8.2) g/dL Albumin (3.5-5.0) g/dL 04/02/18 04/02/18 04/02/18 Range/Units 03:54 04:34 04:34 Hgb 12.5 L (13.0-17.5) gm/dL MCHC 30.6 L (31.0-37.0) g/dL RDW 15.6 H (11.5-15.5) % Sodium 135 L (137-145) mmol/L Potassium (3.5-5.1) mmol/L BUN 29 H (9-20) mg/dL Glucose 173 H (74-99) mg/dL POC Glucose (mg/dL) 162 H (75-99) mg/dL Phosphorus 5.2 H (2.5-4.5) mg/dL Delta Bilirubin 0.4 H (0.0-0.2) mg/dL Alkaline Phosphatase 186 H (38-126) U/L Total Protein 6.1 L (6.3-8.2) g/dL Albumin 3.2 L (3.5-5.0) g/dL 04/02/18 04/02/18 Range/Units 05:52 07:33 Hgb (13.0-17.5) gm/dL MCHC (31.0-37.0) g/dL RDW (11.5-15.5) % Sodium (137-145) mmol/L Potassium (3.5-5.1) mmol/L BUN (9-20) mg/dL Glucose (74-99) mg/dL POC Glucose (mg/dL) 188 H 203 H (75-99) mg/dL Phosphorus (2.5-4.5) mg/dL Delta Bilirubin (0.0-0.2) mg/dL Alkaline Phosphatase (38-126) U/L Total Protein (6.3-8.2) g/dL Albumin (3.5-5.0) g/dL Assessment and Plan Plan: Assessment: #1. Insulin overdose, as a result of intentional suicidal attempt #2. Hypoglycemia, resolved #3. Anxiety, depression, PTSD, previous episodes of suicidal attempts #4. History of bronchial asthma, the severity of which is unknown at this time #5. History of coronary artery disease, with previous bypass grafting, and multiple stents #6. Ischemic cardiomyopathy #7. Diabetes mellitus with diabetic neuropathy, and gastroparesis #8. Chronic congestive heart failure, was systolic dysfunction #9. Previous episode of CVA #10. Hypertension, hyperlipidemia, previous episodes of myocardial infarction #11. Obstructive sleep apnea not on CPAP #12. GERD, with chronic gastritis #13. Osteoarthritis #14. Previous episode of MRSA infection in the wound in his legs from May 2017 Plan: Hemodynamically stable, his serum glucose is stable. D10 and D5.9 and the fluids were discontinued, he is tolerating oral intake, no fever, no chills, no difficulty breathing. No acute events overnight. Patient able to be transferred out of the intensive care unit today, he is to be evaluated by psychiatry, from pulmonary/critical care perspective patient can be cleared to be admitted for inpatient psychiatric admission. I performed a history & physical examination of the patient and discussed their management with my nurse practitioner, Beronica Núñez. I reviewed the nurse practitioner's note and agree with the documented findings and plan of care. Lung sounds are positive diminished breath sounds. The findings and the impression was discussed with the patient. I attest to the documentation by the nurse practitioner. Time with Patient: Greater than 30
[2018-04-02 09:22] VITALS: RESP 22; TEMP 98
--- NOTE | 2018-04-02 09:48 | P.PN ---
Subjective This is a pleasant 42 years old male with past medical history of diabetes mellitus on insulin, history of coronary artery disease with recent heart attack as this last joint is been treated for that at [facility], he is status post cardiac cath and stent and defibrillator. Congestive heart failure, GERD, hyperlipidemia, hypertension, osteoarthritis, sleep apnea entering bipap. diabetic neuropathy in both hands and feet. chronic back pain, depression with history of suicidal attempt, gastroparesis, migraine. who presents because of apparently overdose of insulin and altered mental status. patient could not provide information and was taken from staff and the at bedside. states she was sleeping with him in the same room and different bit when she got the message and a knot on the door by his friend he tested her that he is going to miss her and that he is sorry. sewing the family tried to wake him up he was drowsy and less responsive, and the found to empty insulin pain. thinks that he took extra doses of insulin but she is not sure how much was that. usually he takes novolog 6 units with meals and lantus 27 units at bed time. . He is a known history of suicidal attempts, states over the last 8 years she lived with him he had performed suicidal attempts and he follow -up with [facility]/psychology who referred him to psychiatrist last couple weeks and actually he has an appointment with psychiatrist to today if he didn't come to the hospital. Patient as per was doing well until last 2017 when he got heart attack and he went to [facility] after that has been discharged and still doing well until about 2 weeks ago when his [id number] has in this hospital after that she started to deteriorate and he was still in his and he is here in his 3 month old token to him and telling him he needs him. pt was admitted to the ICU on admission, pt had CT of the brain which was negative for acute hemorrhage , his has glucose in 30s on admission , he was receiving D50 and D5 infusion , with octreotide, which is also recommended by from the poison center when i talked to him. CXR: right Lower lobe infiltrate. pt was started on ceftriaxone and zithromax in ED. Na 136, potassium 3.0, creatinine 0.9. WBC 7.3K , rest of CBC is unremarkable. vitals are stable and pt is afebrile on admission 04/02/2018 Patient today he is fully awake and he knows where he is at, knows the date and name of the president. He doesn't have complains. Patient told me today he took pain NovoLog they are binding new but he wasn't sure how many units were clear. States that because his hemostasis was callimg Him and till now he hears his voice . Patient sugar is improved today it's more than 200 and persistently elevated. We started him on low correction insulin sliding scale.. Leg close effusion. Keep holding Lantus and NovoLog. Vitas looks stable. CBC was unremarkable. Sodium 135, potassium 4.7. Creatinine is 0.8. Sitter remains at bedside with suicidal precautions. Objective - Vital Signs Vital signs: Vital Signs Temp 98.0 F 04/02/18 08:00 Pulse 102 H 04/02/18 09:01 Resp 22 04/02/18 09:01 BP 123/85 04/02/18 09:01 Pulse Ox 69 L 04/02/18 09:01 Intake & Output 04/01/18 04/02/18 04/02/18 18:59 06:59 18:59 Intake Total 2230 520 30 Output Total 1050 2150 Balance 1180 -1630 30 Weight 105.9 kg 106 kg Intake: IV 70 30 Dextrose 10% in Water 1, 70 30 000 ml @ 50 mls/hr IV . Q20H ONE Rx#:[id number] Intake, IV Titration 1150 450 Amount Dextrose 10% in Water 1, 550 450 000 ml @ 50 mls/hr IV . Q20H ONE Rx#:[id number] Octreotide 100 mcg In 200 Sodium Chloride 0.9% 100 ml @ 200 mls/hr IVPB ONCE ONE Rx#:[id number] Potassium Chloride 10 meq 400 In Water For Injection 1 100ml.bag @ 100 mls/hr IVPB Q1HR JAKE Rx#: [id number] Oral 1080 Output: Urine 1050 2150 Other: Voiding Method Urinal # Voids 0 - Exam GENERAL: Patient is alert awake and oriented x 3. Not in distress. obese HEENT: Pupils are round and equally reacting to light. EOMI. No scleral icterus. No conjunctival pallor. Normocephalic, atraumatic. No pharyngeal erythema. No thyromegaly. CARDIOVASCULAR: S1 and S2 present. No murmurs, rubs, or gallops. PULMONARY: Chest is clear to auscultation, no wheezing or crackles. ABDOMEN: Soft, nontender, nondistended, normoactive bowel sounds. No palpable organomegaly. MUSCULOSKELETAL: No joint swelling or deformity. EXTREMITIES: No cyanosis, clubbing, or pedal edema. NEUROLOGICAL: Gross neurological examination did not reveal any focal deficits. SKIN: No rashes. - Labs CBC & Chem 7: 04/02/18 04:34 04/02/18 04:34 Labs: Abnormal Lab Results - Last 24 Hours (Table) 04/01/18 04/01/18 04/01/18 Range/Units 10:15 10:35 10:55 Hgb (13.0-17.5) gm/dL MCHC (31.0-37.0) g/dL RDW (11.5-15.5) % Sodium (137-145) mmol/L Potassium (3.5-5.1) mmol/L BUN (9-20) mg/dL Glucose (74-99) mg/dL POC Glucose (mg/dL) 69 L 59 L 121 H (75-99) mg/dL Phosphorus (2.5-4.5) mg/dL Delta Bilirubin (0.0-0.2) mg/dL Alkaline Phosphatase (38-126) U/L Total Protein (6.3-8.2) g/dL Albumin (3.5-5.0) g/dL 04/01/18 04/01/18 04/01/18 Range/Units 11:54 12:08 12:27 Hgb (13.0-17.5) gm/dL MCHC (31.0-37.0) g/dL RDW (11.5-15.5) % Sodium (137-145) mmol/L Potassium (3.5-5.1) mmol/L BUN (9-20) mg/dL Glucose (74-99) mg/dL POC Glucose (mg/dL) 72 L 64 L 145 H (75-99) mg/dL Phosphorus (2.5-4.5) mg/dL Delta Bilirubin (0.0-0.2) mg/dL Alkaline Phosphatase (38-126) U/L Total Protein (6.3-8.2) g/dL Albumin (3.5-5.0) g/dL 04/01/18 04/01/18 04/01/18 Range/Units 12:54 13:23 13:52 Hgb (13.0-17.5) gm/dL MCHC (31.0-37.0) g/dL RDW (11.5-15.5) % Sodium (137-145) mmol/L Potassium (3.5-5.1) mmol/L BUN (9-20) mg/dL Glucose (74-99) mg/dL POC Glucose (mg/dL) 118 H 133 H 120 H (75-99) mg/dL Phosphorus (2.5-4.5) mg/dL Delta Bilirubin (0.0-0.2) mg/dL Alkaline Phosphatase (38-126) U/L Total Protein (6.3-8.2) g/dL Albumin (3.5-5.0) g/dL 04/01/18 04/01/18 04/01/18 Range/Units 15:55 15:58 16:08 Hgb (13.0-17.5) gm/dL MCHC (31.0-37.0) g/dL RDW (11.5-15.5) % Sodium (137-145) mmol/L Potassium 5.2 H (3.5-5.1) mmol/L BUN (9-20) mg/dL Glucose (74-99) mg/dL POC Glucose (mg/dL) 67 L 152 H (75-99) mg/dL Phosphorus (2.5-4.5) mg/dL Delta Bilirubin (0.0-0.2) mg/dL Alkaline Phosphatase (38-126) U/L Total Protein (6.3-8.2) g/dL Albumin (3.5-5.0) g/dL 04/01/18 04/01/18 04/01/18 Range/Units 17:43 20:02 23:17 Hgb (13.0-17.5) gm/dL MCHC (31.0-37.0) g/dL RDW (11.5-15.5) % Sodium 134 L (137-145) mmol/L Potassium 5.2 H (3.5-5.1) mmol/L BUN 28 H (9-20) mg/dL Glucose (74-99) mg/dL POC Glucose (mg/dL) 100 H 103 H (75-99) mg/dL Phosphorus (2.5-4.5) mg/dL Delta Bilirubin (0.0-0.2) mg/dL Alkaline Phosphatase (38-126) U/L Total Protein (6.3-8.2) g/dL Albumin (3.5-5.0) g/dL 04/01/18 04/02/18 04/02/18 Range/Units 23:56 00:55 01:51 Hgb (13.0-17.5) gm/dL MCHC (31.0-37.0) g/dL RDW (11.5-15.5) % Sodium (137-145) mmol/L Potassium (3.5-5.1) mmol/L BUN (9-20) mg/dL Glucose (74-99) mg/dL POC Glucose (mg/dL) 123 H 118 H 131 H (75-99) mg/dL Phosphorus (2.5-4.5) mg/dL Delta Bilirubin (0.0-0.2) mg/dL Alkaline Phosphatase (38-126) U/L Total Protein (6.3-8.2) g/dL Albumin (3.5-5.0) g/dL 04/02/18 04/02/18 04/02/18 Range/Units 02:56 03:54 04:34 Hgb 12.5 L (13.0-17.5) gm/dL MCHC 30.6 L (31.0-37.0) g/dL RDW 15.6 H (11.5-15.5) % Sodium (137-145) mmol/L Potassium (3.5-5.1) mmol/L BUN (9-20) mg/dL Glucose (74-99) mg/dL POC Glucose (mg/dL) 147 H 162 H (75-99) mg/dL Phosphorus (2.5-4.5) mg/dL Delta Bilirubin (0.0-0.2) mg/dL Alkaline Phosphatase (38-126) U/L Total Protein (6.3-8.2) g/dL Albumin (3.5-5.0) g/dL 04/02/18 04/02/18 04/02/18 Range/Units 04:34 05:52 07:33 Hgb (13.0-17.5) gm/dL MCHC (31.0-37.0) g/dL RDW (11.5-15.5) % Sodium 135 L (137-145) mmol/L Potassium (3.5-5.1) mmol/L BUN 29 H (9-20) mg/dL Glucose 173 H (74-99) mg/dL POC Glucose (mg/dL) 188 H 203 H (75-99) mg/dL Phosphorus 5.2 H (2.5-4.5) mg/dL Delta Bilirubin 0.4 H (0.0-0.2) mg/dL Alkaline Phosphatase 186 H (38-126) U/L Total Protein 6.1 L (6.3-8.2) g/dL Albumin 3.2 L (3.5-5.0) g/dL Assessment and Plan Assessment: acute hypoglycemia secondary to insulin over dose possible suicidal ideation depression the auditory hallucination pneumonia, could be community acquired pna. treating gram negative bact and atypical MO Plan: this is a 42 yo M who presents with hypoglycemia and possible suicidal ideation. pt is treated with glucose therapy and D50 , CT of the head is negative , critical care team are following the pt . sitter is present at bed side for 1:1 , psych consult is called. labs and medication are reviewed. continue with the same treatment , continue with symptomatic treatment , resume home medication , monitor lytes and vitals including glucose , cardiology consult is appreciated. c/w same antibioitc . GI and DVT prophylaxis , further recommendation based upon pt clinical course and progress DVT prophylaxis Eliquis GI prophylaxis protonix Prognosis is guarded
[2018-04-02] MEDS: APIXABAN 5 MG TAB PO SCH ×2 (11:00→17:02)
[2018-04-02] MEDS: GABAPENTIN 400 MG CAP PO SCH ×2 (11:00→16:59)
[2018-04-02] MEDS: PANTOPRAZOLE 40 MG/10 ML VIAL IVP SCH (11:01)
[2018-04-02] MEDS: TORSEMIDE 20 MG TAB PO SCH ×2 (11:02→16:59)
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
[2018-04-02 12:30] LABS: Glucose,Whole Blood 248 mg/dL (75-99)
[2018-04-02] MEDS ORDERED: INSULIN ASPART 100 UNIT/ML 1 ML 10 ML VIAL SQ SCH ×2 (12:30→17:30)
[2018-04-02 16:19] VITALS: BP 149/72; PULSE 76
[2018-04-02 17:04] LABS: Hemoglobin A1C 10.6 % (4.0-6.0)
[2018-04-02 17:08] LABS: Glucose,Whole Blood 243 mg/dL (75-99)
[2018-04-02] MEDS ORDERED: diphenhydrAMINE 25 MG CAP PO STA (17:14)
--- NOTE | 2018-04-02 20:07 | P.DS ---
Providers Date of admission: 04/01/18 07:20 This is a pleasant 42 years old male with past medical history of diabetes mellitus on insulin, history of coronary artery disease with recent heart attack as this last joint is been treated for that at [facility], he is status post cardiac cath and stent and defibrillator. Congestive heart failure, GERD, hyperlipidemia, hypertension, osteoarthritis, sleep apnea entering bipap. diabetic neuropathy in both hands and feet. chronic back pain, depression with history of suicidal attempt, gastroparesis, migraine. who presents because of apparently overdose of insulin and altered mental status. patient could not provide information and was taken from staff and the at bedside. states she was sleeping with him in the same room and different bit when she got the message and a knot on the door by his friend he tested her that he is going to miss her and that he is sorry. sewing the family tried to wake him up he was drowsy and less responsive, and the found to empty insulin pain. thinks that he took extra doses of insulin but she is not sure how much was that. usually he takes novolog 6 units with meals and lantus 27 units at bed time. . He is a known history of suicidal attempts, states over the last 8 years she lived with him he had performed suicidal attempts and he follow -up with [facility]/psychology who referred him to psychiatrist last couple weeks and actually he has an appointment with psychiatrist to today if he didn't come to the hospital. Patient as per was doing well until last Chantel2017 when he got heart attack and he went to [facility] after that has been discharged and still doing well until about 2 weeks ago when his [id number] has in this hospital after that she started to deteriorate and he was still in his and he is here in his 3 month old token to him and telling him he needs him. pt was admitted to the ICU on admission, pt had CT of the brain which was negative for acute hemorrhage , his has glucose in 30s on admission , he was receiving D50 and D5 infusion , with octreotide, pt confusion got relieved and he is more awake and alert and returned to his mental baseline. his glucose level improved in 100-200s range. pt was asympotmatic on day of discharge like no chest pain , no dyspnea, no change in urine or bowel habits. no fever. pt has been evaluated by psychiatric service after he states he took 2 insulin pens of NovoLog because he was trying to commit suicide. States that because his 3 month son was calling Him and till now he hears his voice . We started him on low correction insulin sliding scale.. Vitas looks stable. CBC was unremarkable. Sodium 135, potassium 4.7. Creatinine is 0.8. Sitter remains at bedside with suicidal precautions. pt will be discharged today from the ICU to the mental health unit. his lantus was restarted with insulin sliding scale. Pt was instructed about the problems and management plan and Pt verbalized understanding and acceptance Pt is found stable and can be discharged to the community but needs follow up as outpt please refer to my note from today for Physical exam time spent more than 35 min Attending physician: Safia Clay Consults: 04/01/18 07:18 Consult Physician Stat Consulting Provider: Ayush Chavira Consult Reason/Comments: insulin overdose Do you want consulting provider notified?: Already Contacted 04/01/18 11:02 Consult Physician Stat Consulting Provider: Abdiel Louis Consult Reason/Comments: SUICIDE ATTEMPT Do you want consulting provider notified?: Yes Primary care physician: Stated None Plan - Discharge Summary Discharge Rx Participant: No New Discharge Prescriptions: New Acetaminophen Tab [Tylenol] 325 mg PO Q6HR PRN tab PRN Reason: Fever And/ Or Pain Insulin Detemir [Levemir] 25 unit SQ HS #1 vial Continue ARIPiprazole [ARIPiprazole Odt] 15 mg PO HS@2100 Metoprolol Succinate [Toprol XL] 25 mg PO DAILY@0800 Clopidogrel [Plavix] 75 mg PO DAILY@0800 Sertraline [Zoloft] 200 mg PO DAILY@0800 Rosuvastatin [Crestor] 20 mg PO HS@2100 Apixaban [Eliquis] 5 mg PO BID@0800,1700 Digoxin [Digitek] 125 mcg PO DAILY@0800 Gabapentin [Neurontin] 400 mg PO TID@0600,1400,2100 Lisinopril [Zestril] 5 mg PO DAILY@0800 Spironolactone [Aldactone] 25 mg PO DAILY@0800 Torsemide [Demadex] 40 mg PO BID Aspirin 81 mg PO DAILY chew Albuterol Inhaler [Ventolin Hfa Inhaler] 2 puff INHALATION RT-Q6H PRN PRN Reason: Shortness Of Breath Primidone [Mysoline] 100 mg PO HS Pantoprazole [Protonix] 40 mg PO DAILY Insulin Glargine [Lantus] 27 unit SQ HS Insulin Aspart [NovoLOG (formulary)] 6 unit SQ AC-TID Discharge Medication List ARIPiprazole [ARIPiprazole Odt] 15 mg PO HS@209910/27/17 [History] Clopidogrel [Plavix] 75 mg PO DAILY@79912/03/17 [History] Metoprolol Succinate [Toprol XL] 25 mg PO DAILY@79912/03/17 [History] Sertraline [Zoloft] 200 mg PO DAILY@79912/05/17 [History] Rosuvastatin [Crestor] 20 mg PO HS@209912/30/17 [History] Apixaban [Eliquis] 5 mg PO BID@0800,1700 02/01/18 [History] Digoxin [Digitek] 125 mcg PO DAILY@79902/01/18 [History] Gabapentin [Neurontin] 400 mg PO TID@0600,1400,209902/01/18 [History] Lisinopril [Zestril] 5 mg PO DAILY@79902/01/18 [History] Spironolactone [Aldactone] 25 mg PO DAILY@79902/01/18 [History] Torsemide [Demadex] 40 mg PO BID 02/01/18 [History] Aspirin 81 mg PO DAILY chew 02/03/18 [Rx] Albuterol Inhaler [Ventolin Hfa Inhaler] 2 puff INHALATION RT-Q6H PRN 04/01/18 [ History] Insulin Aspart [NovoLOG (formulary)] 6 unit SQ AC-TID 04/01/18 [History] Insulin Glargine [Lantus] 27 unit SQ HS 04/01/18 [History] Pantoprazole [Protonix] 40 mg PO DAILY 04/01/18 [History] Primidone [Mysoline] 100 mg PO HS 04/01/18 [History] Acetaminophen Tab [Tylenol] 325 mg PO Q6HR PRN tab 04/02/18 [Rx] Insulin Detemir [Levemir] 25 unit SQ HS #1 vial 04/02/18 [Rx] Follow up Appointment(s)/Referral(s): None,Stated [Primary Care Provider] - 1-2 days Discharge Disposition: TRANSFER TO PSYCH HOSP/UNIT
[2018-04-02] MEDS ORDERED: INSULIN DETEMIR 100 UNIT/ML 10 ML VIAL SQ SCH (21:00)
[2018-04-03] MEDS ORDERED: PANTOPRAZOLE 40 MG TABLET PO SCH (07:30)
[2018-04-04 15:46] LABS: Glucose,Whole Blood 109 mg/dL (75-99)
== END 2018-04-02 17:37 | DRG 917 ==
LOC: EC 04:10 → 2SICU 07:20
PROVIDERS: ADMIT Hospitalist; ATTEND Hospitalist
DX: T38.3X2A Poisoning by insulin and oral hypoglycemic [antidiabetic] drugs, intentional self-harm, initial encounter (principal); J18.9 Pneumonia, unspecified organism; E11.641 Type 2 diabetes mellitus with hypoglycemia with coma; I50.22 Chronic systolic (congestive) heart failure; J45.909 Unspecified asthma, uncomplicated; K21.9 Gastro-esophageal reflux disease without esophagitis; K29.50 Unspecified chronic gastritis without bleeding; K31.84 Gastroparesis; M19.90 Unspecified osteoarthritis, unspecified site; G43.909 Migraine, unspecified, not intractable, without status migrainosus; M54.9 Dorsalgia, unspecified; I11.0 Hypertensive heart disease with heart failure; E11.42 Type 2 diabetes mellitus with diabetic polyneuropathy; E11.43 Type 2 diabetes mellitus with diabetic autonomic (poly)neuropathy; K44.9 Diaphragmatic hernia without obstruction or gangrene; E78.5 Hyperlipidemia, unspecified; G47.33 Obstructive sleep apnea (adult) (pediatric); G89.29 Other chronic pain; F32.9 Major depressive disorder, single episode, unspecified; F41.9 Anxiety disorder, unspecified; F43.10 Post-traumatic stress disorder, unspecified; I25.5 Ischemic cardiomyopathy; I25.2 Old myocardial infarction; E66.9 Obesity, unspecified; Z68.36 Body mass index [BMI] 36.0-36.9, adult; I25.10 Atherosclerotic heart disease of native coronary artery without angina pectoris; Z79.01 Long term (current) use of anticoagulants; Z79.02 Long term (current) use of antithrombotics/antiplatelets; Z79.4 Long term (current) use of insulin; Z79.82 Long term (current) use of aspirin; Z79.899 Other long term (current) drug therapy; Z95.5 Presence of coronary angioplasty implant and graft; Z95.1 Presence of aortocoronary bypass graft; Z95.810 Presence of automatic (implantable) cardiac defibrillator; Z86.73 Personal history of transient ischemic attack (TIA), and cerebral infarction without residual deficits; Z86.14 Personal history of Methicillin resistant Staphylococcus aureus infection; Z88.8 Allergy status to other drugs, medicaments and biological substances; Z88.1 Allergy status to other antibiotic agents; Z91.041 Radiographic dye allergy status; Z88.5 Allergy status to narcotic agent; Z91.013 Allergy to seafood; Z87.11 Personal history of peptic ulcer disease; Z87.01 Personal history of pneumonia (recurrent); Z87.440 Personal history of urinary (tract) infections; Z91.5 Personal history of self-harm; Z90.49 Acquired absence of other specified parts of digestive tract; Z90.79 Acquired absence of other genital organ(s); Z83.3 Family history of diabetes mellitus; Z82.49 Family history of ischemic heart disease and other diseases of the circulatory system; Z82.0 Family history of epilepsy and other diseases of the nervous system; Z80.9 Family history of malignant neoplasm, unspecified; Y92.009 Unspecified place in unspecified non-institutional (private) residence as the place of occurrence of the external cause
CPT/HCPCS: 36415; 70450; 71045; 80048; 80053; 80162; 80188; 80306; 80320; 81001; 82248; 83036; 83520; 83735; 84100; 84132; 85025; 85610; 85730; 93005; 96361; 96365; 96366; 96368; 96375; 96376; 99291

== ENCOUNTER 2018-04-02 17:40 | Inpatient (IN) | payer MEDICARE ==
[2018-04-02] MEDS ORDERED: ACETAMINOPHEN TAB 325 MG TAB PO PRN (18:35)
[2018-04-02] MEDS ORDERED: ALBUTEROL NEBULIZED 2.5 MG/3 ML INHALATION PRN (19:08)
[2018-04-02] MEDS: LORazepam 1 MG TAB PO PRN (19:10)
[2018-04-02 19:52] LABS: Glucose,Whole Blood 271 mg/dL (75-99)
[2018-04-02] MEDS: INSULIN ASPART 100 UNIT/ML 1 ML 10 ML VIAL SQ SCH (19:59)
[2018-04-02] MEDS: PRIMIDONE 50 MG TAB PO SCH (20:00)
[2018-04-02] MEDS ORDERED: INSULIN DETEMIR 100 UNIT/ML 10 ML VIAL SQ SCH (21:00)
[2018-04-02] MEDS ORDERED: diphenhydrAMINE 50 MG/ML 1 ML VIAL IM STA (21:20)
[2018-04-02] MEDS: ROSUVASTATIN 20 MG PO SCH (21:38)
[2018-04-03 06:10] LABS: Glucose,Whole Blood 125 mg/dL (75-99)
[2018-04-03] MEDS: INSULIN ASPART 100 UNIT/ML 1 ML 10 ML VIAL SQ SCH ×4 (06:54→20:14)
[2018-04-03] MEDS: LORazepam 1 MG TAB PO PRN (07:14)
[2018-04-03] MEDS: SPIRONOLACTONE 25 MG TAB PO SCH (08:41)
[2018-04-03] MEDS: CLOPIDOGREL 75 MG TAB PO SCH (08:42)
[2018-04-03] MEDS: LISINOPRIL 5 MG TAB PO SCH (08:42)
[2018-04-03] MEDS: TORSEMIDE 20 MG TAB PO SCH ×2 (08:42→17:19)
[2018-04-03] MEDS: APIXABAN 5 MG TAB PO SCH ×2 (08:42→17:19)
[2018-04-03] MEDS: PANTOPRAZOLE 40 MG TABLET PO SCH (08:42)
[2018-04-03] MEDS: METOPROLOL SUCCINATE (ER) 25 MG TAB.ER.24H PO SCH (08:42)
[2018-04-03] MEDS: DIGOXIN 125 MCG TAB PO SCH (08:42)
[2018-04-03 09:06] LABS: ALT 48 U/L (21-72); AST 35 U/L (17-59); Albumin 3.4 g/dL (3.5-5.0); Alkaline Phosphatase 203 U/L (38-126); Anion Gap 11 mmol/L; Blood Urea Nitrogen 39 mg/dL (9-20); Calcium 9.2 mg/dL (8.4-10.2); Carbon Dioxide 27 mmol/L (22-30); Chloride 96 mmol/L (98-107); Glucose 129 mg/dL (74-99); Potassium 4.4 mmol/L (3.5-5.1); Sodium 134 mmol/L (137-145); Total Bilirubin 0.5 mg/dL (0.2-1.3); Total Protein 6.4 g/dL (6.3-8.2)
[2018-04-03] MEDS: hydrOXYzine PAMOATE 25 MG CAP PO PRN ×2 (09:29→20:16)
[2018-04-03] MEDS: DULoxetine HCL 30 MG CAPSULE.DR PO SCH (09:30)
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
[2018-04-03 12:59] LABS: Glucose,Whole Blood 192 mg/dL (75-99)
--- NOTE | 2018-04-03 14:21 | P.CONS ---
History of Present Illness - History of Present Illness This is a pleasant 42 years old male who is known to me from recent admission to the ICU where he was transferred to the mental health unit yesterday. He has past medical history of diabetes mellitus on insulin, history of coronary artery disease with recent heart attack as this last joint is been treated for that at [facility], he is status post cardiac cath and stent and defibrillator. Congestive heart failure, GERD, hyperlipidemia, hypertension, osteoarthritis, sleep apnea entering bipap. diabetic neuropathy in both hands and feet. chronic back pain, depression with history of suicidal attempt, gastroparesis, migraine. who presents because of apparently overdose of insulin and altered mental status. He was admitted to the ICU for [place] days, his mental status came back to normal and his sugar improved and patient was transferred to the mental health unit. usually he takes novolog 6 units with meals and lantus 27 units at bed time. He is a known history of suicidal attempts, states over the last 8 years she lived with him he had performed suicidal attempts and he follow-up with [facility]/psychology who referred him to psychiatrist last couple weeks and actually he has an appointment with psychiatrist to today if he didn' t come to the hospital. Patient as per was doing well until last October of 2017 when he got heart attack and he went to [facility] after that has been discharged and still doing well until about 2 weeks ago when his [id number] has in this hospital after that she started to deteriorate and he was still in his and he is here in his 3 month old token to him and telling him he needs him. Today patient is seen walking in the hallway and eating snacks. Patient denies any chest pain. No dyspnea. No change in urine or bowel habits. No nausea vomiting. No fever. Sugar was 308 in the morning coming down on 192 before lunch and he got 3 units. We going to increase the Lantus from 27 to 3 units at bedtime and continue with insulin sliding scale. Review of Systems CONSTITUTIONAL: No fever, no malaise, no fatigue. HEENT: No recent visual problems or hearing problems. Denied any sore throat. CARDIOVASCULAR: No orthopnea, PND, no palpitations, no syncope. PULMONARY: No shortness of breath, no cough, no hemoptysis. GASTROINTESTINAL: No diarrhea, no nausea, no vomiting, no abdominal pain. Normoactive bowel sounds. NEUROLOGICAL: No headaches, no weakness, no numbness. HEMATOLOGICAL: Denies any bleeding or petechiae. GENITOURINARY: Denies any burning micturition, frequency, or urgency. MUSCULOSKELETAL/RHEUMATOLOGICAL: Denies any joint pain, swelling, or any muscle pain. ENDOCRINE: Denies any polyuria or polydipsia. Past Medical History Past Medical History: Asthma, Coronary Artery Disease (CAD), Chest Pain / Angina , Heart Failure, CVA/TIA, Diabetes Mellitus, GERD/Reflux, Hyperlipidemia, Hypertension, Myocardial Infarction (DE), Osteoarthritis (OA), Pneumonia, Skin Disorder, Sleep Apnea/CPAP/BIPAP Additional Past Medical History / Comment(s): multiple vessel CAD, ischemic cardiomyopathy, diabetic neuropathy bilateral hands and feet, hypertensive cardiovascular disease, SHELIA with no device, chronic gastritis, degenerative disc disease, chronic back pain, depression with hx of suicide attempts, gastroparesis, psoriasis, UTI, migraines, TIA, PUD, hiatal hernia, L rotator cuff tear, bronchitis, pseudoaneurysm L groin post procedure. Last Myocardial Infarction Date:: May 2017 History of Any Multi-Drug Resistant Organisms: MRSA Year Discovered:: 11/05/2017 (Culture done at [facility]) MDRO Source:: legs Past Surgical History: AICD, Appendectomy, Cholecystectomy, Heart Catheterization With Stent, Hernia Repair Additional Past Surgical History / Comment(s): Pt has had multiple cardiac procedures- caths/stents/PTCA, last stent placed at [facility] - May 2017, S[place]AN[place]H, R inguinal hernia repair, umbilical hernia repair, right orchiectomy due to necrosis, right hand surgery r/t injury, colonoscopy, cystoscopy ( scraped bladder parrish), stents 10/2017, Past Anesthesia/Blood Transfusion Reactions: No Reported Reaction Additional Past Anesthesia/Blood Transfusion Reaction / Comm: . Date of Last Stent Placement:: 05/25/2017 Type of Cardiac Device: Biventricular Pacemaker, AICD Device Placement Date:: 09/19/15 Smoking Status: Never smoker - Past Family History Mother Family Medical History: Coronary Artery Disease (CAD), Myocardial Infarction (DE ) Additional Family Medical History / Comment(s): 7 DE and faulty heart valve. Pt does not know the age when mother had her DE's. Father History Unknown: Yes Additional Family Medical History / Comment(s): Does not know who father is. Brother(s) Family Medical History: Cancer, Congestive Heart Failure (CHF), Myocardial Infarction (DE) Additional Family Medical History / Comment(s): Parkinsons. Pt does not know at what age his brother had an DE. Patient's other brother has lung CA Patient has Family Medical History: No Reported History Additional Family Medical History / Comment(s): There is a strong family history for heart disease, hypertension, and diabetes. Medications and Allergies Home Medications Medication Instructions Recorded Confirmed Type ARIPiprazole [ARIPiprazole Odt] 15 mg PO HS@2100 10/27/17 04/02/18 History Clopidogrel [Plavix] 75 mg PO DAILY@0812/03/17 04/02/18 History Metoprolol Succinate [Toprol XL] 25 mg PO DAILY@0812/03/17 04/03/18 History Sertraline [Zoloft] 200 mg PO DAILY@0812/05/17 04/03/18 History Rosuvastatin [Crestor] 20 mg PO HS@209912/30/17 04/03/18 History Apixaban [Eliquis] 5 mg PO BID@0800,1700 02/01/18 04/02/18 History Digoxin [Digitek] 125 mcg PO DAILY@0802/01/18 04/02/18 History Gabapentin [Neurontin] 400 mg PO TID@0600,1400,2100 02/01/18 04/02/18 History Lisinopril [Zestril] 5 mg PO DAILY@0800 02/01/18 04/03/18 History Spironolactone [Aldactone] 25 mg PO DAILY@0800 02/01/18 04/03/18 History Torsemide [Demadex] 40 mg PO BID 02/01/18 04/03/18 History Aspirin 81 mg PO DAILY chew 02/03/18 04/02/18 Rx Albuterol Inhaler [Ventolin Hfa 2 puff INHALATION RT-Q6H PRN 04/01/18 04/02/18 History Inhaler] Insulin Aspart [NovoLOG 6 unit SQ AC-TID 04/01/18 04/03/18 History (formulary)] Insulin Glargine [Lantus] 27 unit SQ HS 04/01/18 04/03/18 History Pantoprazole [Protonix] 40 mg PO DAILY 04/01/18 04/03/18 History Primidone [Mysoline] 100 mg PO HS 04/01/18 04/03/18 History Acetaminophen Tab [Tylenol] 325 mg PO Q6HR PRN tab 04/02/18 04/02/18 Rx Insulin Detemir [Levemir] 25 unit SQ HS #1 vial 04/02/18 04/03/18 Rx Allergies Allergy/AdvReac Type Severity Reaction Status Date / Time erythromycin base Allergy Severe Rash/Hives Verified 04/03/18 03:22 [Erythromycin Base] cephalexin monohydrate Allergy Unknown Rash/Hives Verified 04/03/18 03:22 [From Keflex] codeine Allergy Unknown Unknown Verified 04/03/18 03:22 meclizine Allergy Unknown Unknown Verified 04/03/18 03:22 Penicillins Allergy Unknown Rash/Hives Verified 04/03/18 03:22 shellfish derived Allergy Unknown Anaphylaxis Verified 04/03/18 03:22 Fish Containing Products Allergy Anaphylaxis Verified 04/03/18 03:22 [Fish] Iodinated Contrast- Oral and Allergy Anaphylaxis Verified 04/03/18 03:22 IV Dye naproxen AdvReac Unknown Compromises Verified 04/03/18 03:22 Kidney Function atorvastatin calcium AdvReac Myalgia Verified 04/03/18 03:22 [From Lipitor] glucosamine AdvReac Unknown Verified 04/02/18 19:58 hydrocodone [From [place]] AdvReac Rapid Verified 04/02/18 19:58 Heart Rate Physical Exam Vitals: Vital Signs Temp Pulse Pulse Resp BP BP Pulse Ox 04/03/18 08:56 92 18 114/69 04/03/18 02:00 97.9 F 89 17 111/64 04/02/18 18:51 98.2 F 91 16 127/70 96 Intake and Output 04/02/18 04/03/18 04/03/18 22:59 06:59 14:59 Other: Weight 102.4 kg GENERAL: The patient is alert and oriented x3, not in any acute distress. Well developed, well nourished. HEENT: Pupils are round and equally reacting to light. EOMI. No scleral icterus. No conjunctival pallor. Normocephalic, atraumatic. No pharyngeal erythema. No thyromegaly. CARDIOVASCULAR: S1 and S2 present. No murmurs, rubs, or gallops. PULMONARY: Chest is clear to auscultation, no wheezing or crackles. ABDOMEN: Soft, nontender, nondistended, normoactive bowel sounds. No palpable organomegaly. MUSCULOSKELETAL: No joint swelling or deformity. EXTREMITIES: No cyanosis, clubbing, or pedal edema. NEUROLOGICAL: Gross neurological examination did not reveal any focal deficits. SKIN: No rashes. Results CBC & Chem 7: 04/03/18 07:55 Labs: Abnormal Lab Results - Last 24 Hours (Table) 04/02/18 04/03/18 04/03/18 Range/Units 19:50 06:07 07:55 Sodium 134 L (137-145) mmol/L Chloride 96 L (98-107) mmol/L BUN 39 H (9-20) mg/dL Glucose 129 H (74-99) mg/dL POC Glucose (mg/dL) 271 H 125 H (75-99) mg/dL Alkaline Phosphatase 203 H (38-126) U/L Albumin 3.4 L (3.5-5.0) g/dL 04/03/18 Range/Units 12:44 Sodium (137-145) mmol/L Chloride (98-107) mmol/L BUN (9-20) mg/dL Glucose (74-99) mg/dL POC Glucose (mg/dL) 192 H (75-99) mg/dL Alkaline Phosphatase (38-126) U/L Albumin (3.5-5.0) g/dL Assessment and Plan Assessment: Diabetes mellitus, on insulin therapy. History of coronary artery disease. Status post cardiac cath and stent with defibrillator Depression with psychotic features. Treatment as per psychiatric primary team. History of congestive heart failure History of GERD Hyperlipidemia Essential hypertension Osteoarthritis History of sleep apnea Obesity Diabetic neuropathy in both hands and feet Chronic back pain Plan: This is a pleasant 42 years old male who presents with suicidal ideation. He has history of diabetes and we'll going to increase his Lantus from 27 to 13 units at bedtime. Continue sliding scale. Adjust insulin as per protocol. Labs and medication were reviewed.. Continue same treatment. Continue with symptomatic treatment. Resume home medication. Monitor lytes and vitals. DVT and GI prophylaxis. Further recommendations of the clinical course of the patient DVT prophylaxis: On Eliquis GI Prophylaxis: Protonix Prognosis is guarded Thank you for consulting us please feel free to contact us for any further question or clarification.
[2018-04-03 17:21] LABS: Glucose,Whole Blood 210 mg/dL (75-99)
[2018-04-03 20:13] LABS: Glucose,Whole Blood 200 mg/dL (75-99)
[2018-04-03] MEDS: PRIMIDONE 50 MG TAB PO SCH (20:13)
[2018-04-03] MEDS: INSULIN DETEMIR 100 UNIT/ML 10 ML VIAL SQ SCH (20:14)
[2018-04-04] MEDS: ROSUVASTATIN 20 MG PO SCH ×2 (00:32→20:27)
[2018-04-04] MEDS: LORazepam 1 MG TAB PO PRN (01:14)
[2018-04-04 06:40] LABS: Glucose,Whole Blood 111 mg/dL (75-99)
[2018-04-04] MEDS: INSULIN ASPART 100 UNIT/ML 1 ML 10 ML VIAL SQ SCH ×4 (08:25→20:21)
[2018-04-04] MEDS: DIGOXIN 125 MCG TAB PO SCH (08:25)
[2018-04-04] MEDS: LISINOPRIL 5 MG TAB PO SCH (08:26)
[2018-04-04] MEDS: DULoxetine HCL 30 MG CAPSULE.DR PO SCH (08:26)
[2018-04-04] MEDS: CLOPIDOGREL 75 MG TAB PO SCH (08:26)
[2018-04-04] MEDS: PANTOPRAZOLE 40 MG TABLET PO SCH ×2 (08:26→20:22)
[2018-04-04] MEDS: SPIRONOLACTONE 25 MG TAB PO SCH (08:26)
[2018-04-04] MEDS: METOPROLOL SUCCINATE (ER) 25 MG TAB.ER.24H PO SCH (08:26)
[2018-04-04] MEDS: TORSEMIDE 20 MG TAB PO SCH ×2 (08:26→17:13)
[2018-04-04] MEDS: APIXABAN 5 MG TAB PO SCH ×2 (08:26→17:13)
--- NOTE | 2018-04-04 11:06 | P.PN ---
Progress Note - Text Interval history: The patient is found in his room sleeping he follows me to an interview room. He states that he feels the same still depressed with hopeless thoughts and suicidal ideation. He continues to experience auditory hallucinations. He did have a visit from family last evening which was supportive he expects it will visit again tonight. We reviewed his psychotropic medications. He discusses that he still has nightmares related to his son's . We discussed possibly trialing prazosin however his blood pressures been on the lower end. We discussed the value of him participating fully in the milieu. Mental status exam: The patient is an overweight male he is dressed in his own clothing. He is markedly disheveled his hair is standing on and. He is wearing his eyeglasses. He has numerous visible tattoos on his extremities and neck. He reports a depressed mood hopeless thoughts of suicidal ideation. He endorses ongoing experience of hearing his son' s voice as a teenager. He demonstrates no verbal or physical aggressiveness. He maintains a flat affect with no reactivity. He seated calmly in the chair he demonstrates no hyperactivity. He demonstrates normal involuntary repetitive movements. Insight and judgment limited. Plan: The patient will continue on his current psychotropic medications. We will plan to titrate the Cymbalta further in the next 1-2 days. We discussed the value of him participating in all groups. Vital signs reviewed.
[2018-04-04 12:52] LABS: Glucose,Whole Blood 195 mg/dL (75-99)
[2018-04-04 17:21] LABS: Glucose,Whole Blood 157 mg/dL (75-99)
[2018-04-04 20:11] LABS: Glucose,Whole Blood 347 mg/dL (75-99)
[2018-04-04 20:14] LABS: Glucose,Whole Blood 316 mg/dL (75-99)
[2018-04-04] MEDS: INSULIN DETEMIR 100 UNIT/ML 10 ML VIAL SQ SCH (20:21)
[2018-04-04] MEDS: PRIMIDONE 50 MG TAB PO SCH (20:22)
[2018-04-04] MEDS: hydrOXYzine PAMOATE 25 MG CAP PO PRN (20:25)
[2018-04-05 04:49] LABS: Glucose,Whole Blood 66 mg/dL (75-99)
[2018-04-05 05:17] LABS: Glucose,Whole Blood 90 mg/dL (75-99)
[2018-04-05] MEDS: INSULIN ASPART 100 UNIT/ML 1 ML 10 ML VIAL SQ SCH ×4 (08:28→20:33)
[2018-04-05 08:29] LABS: Glucose,Whole Blood 148 mg/dL (75-99)
[2018-04-05] MEDS: CLOPIDOGREL 75 MG TAB PO SCH (08:29)
[2018-04-05] MEDS: APIXABAN 5 MG TAB PO SCH ×2 (08:29→18:08)
[2018-04-05] MEDS: TORSEMIDE 20 MG TAB PO SCH ×2 (08:30→15:09)
[2018-04-05] MEDS: DIGOXIN 125 MCG TAB PO SCH (08:30)
[2018-04-05] MEDS: LISINOPRIL 5 MG TAB PO SCH (08:30)
[2018-04-05] MEDS: SPIRONOLACTONE 25 MG TAB PO SCH (08:30)
[2018-04-05] MEDS: METOPROLOL SUCCINATE (ER) 25 MG TAB.ER.24H PO SCH (08:30)
[2018-04-05] MEDS: PANTOPRAZOLE 40 MG TABLET PO SCH (08:31)
[2018-04-05] MEDS: DULoxetine HCL 30 MG CAPSULE.DR PO SCH (08:31)
[2018-04-05] MEDS ORDERED: DULoxetine HCL 30 MG CAPSULE.DR PO ONE (09:16)
--- NOTE | 2018-04-05 09:20 | P.PN ---
Progress Note - Text Interval history: The patient is found in his room he follows me to an interview room. He states he feels the same. He states he wish he could does go to sleep and never wake up again. He had a visit from his and cousin. He reports they suggested that he go to a long-term facility. The patient did not attend groups yesterday he isolated in his room other than meals. He has no questions regarding his medications. We discussed titrating the Cymbalta to 60 mg daily and he is agreeable. Again we discussed the importance of him trying to engage in all facets of treatment here including groups. Mental status exam: The patient is an overweight male appearing his stated age. He is markedly disheveled hygiene is adequate. His hairs staining on and he is an unkempt mathews. He is dressed in his own clothing the same as yesterday. He has numerous visible tattoos on his upper extremities and neck. He indicates his mood is depressed he feels hopeless and continues to feel suicidal. He reports no homicidal ideation intent or plan. He continues to report an auditory hallucination that noncommanding. He demonstrates psychomotor slowing. He demonstrates no verbal or physical aggressiveness. Affect is flat. He demonstrates no tangential thinking loose associations or flight of ideas. He is oriented to person place and date. Plan: The patient reports severe symptoms of depression. We will titrate his Cymbalta to 60 mg daily. Consider other augmentation strategies. He strongly encouraged to attend groups. We will monitor him for safety. Vital signs reviewed they are within normal limits.
[2018-04-05 12:59] LABS: Glucose,Whole Blood 236 mg/dL (75-99)
[2018-04-05] MEDS: LORazepam 1 MG TAB PO PRN (15:08)
[2018-04-05 15:50] LABS: Glucose,Whole Blood 249 mg/dL (75-99)
[2018-04-05 17:55] LABS: Glucose,Whole Blood 213 mg/dL (75-99)
[2018-04-05] MEDS ORDERED: INSULIN ASPART 100 UNIT/ML 1 ML 10 ML VIAL SQ ONE (18:18)
[2018-04-05 20:25] LABS: Glucose,Whole Blood 167 mg/dL (75-99)
[2018-04-05] MEDS: INSULIN DETEMIR 100 UNIT/ML 10 ML VIAL SQ SCH (20:34)
[2018-04-05] MEDS: PRIMIDONE 50 MG TAB PO SCH (20:36)
[2018-04-05] MEDS: hydrOXYzine PAMOATE 25 MG CAP PO PRN (20:38)
[2018-04-05] MEDS: ROSUVASTATIN 20 MG PO SCH (22:16)
[2018-04-06 03:17] LABS: Glucose,Whole Blood 169 mg/dL (75-99)
[2018-04-06 06:22] LABS: Glucose,Whole Blood 157 mg/dL (75-99)
[2018-04-06] MEDS: INSULIN ASPART 100 UNIT/ML 1 ML 10 ML VIAL SQ SCH ×7 (06:51→20:23)
[2018-04-06] MEDS: LISINOPRIL 5 MG TAB PO SCH (08:20)
[2018-04-06] MEDS: METOPROLOL SUCCINATE (ER) 25 MG TAB.ER.24H PO SCH (08:20)
[2018-04-06] MEDS: SPIRONOLACTONE 25 MG TAB PO SCH (08:20)
[2018-04-06] MEDS: DIGOXIN 125 MCG TAB PO SCH (08:20)
[2018-04-06] MEDS: APIXABAN 5 MG TAB PO SCH ×2 (08:20→17:36)
[2018-04-06] MEDS: CLOPIDOGREL 75 MG TAB PO SCH (08:20)
[2018-04-06] MEDS: TORSEMIDE 20 MG TAB PO SCH ×2 (08:20→16:52)
[2018-04-06] MEDS: DULoxetine HCL 60 MG CAPSULE.DR PO SCH (08:20)
[2018-04-06] MEDS: PANTOPRAZOLE 40 MG TABLET PO SCH (08:20)
--- NOTE | 2018-04-06 09:51 | P.PN ---
Progress Note - Text Interval history: The patient is found in bed he follows me to an interview room. He states his mood is the same. He continues to feel depressed and hopeless. He continues to feel he would be better off . He continues to hear the voice as previously described. He believes that his son calling him home and telling him he needs him. He does report that the voice seems to be not as loud as before. We reviewed his medication options we discussed adding Wellbutrin as an augmentation strategy and he is agreeable. He verbalizes he has no history of seizures. Mental status exam: The patient is alert he is dressed in his own clothing which is different than yesterday. He has a disheveled appearance his hair is uncombed. He is showering. Eye contact is staring in nature. He initiates very little spontaneous speech he provides brief answers to questions asked. He endorses a depressed mood. He feels hopeless and continues to wish that he was . He reports no homicidal ideation intent or plan. He endorses no visual hallucinations or any specific delusions. He demonstrates no verbal or physical aggressiveness. He does have some mild psychomotor slowing. There are no observed repetitive involuntary movements. Insight and judgment limited. He is oriented to person place and date. Plan: The patient will continue on the Cymbalta which is just been started, continue Abilify at current dose, added Wellbutrin XL 150 mg in the morning. We will continue to encourage his participation in the milieu. He states he attended 3 groups yesterday. He continues to require inpatient psychiatric treatment. Vital signs reviewed.
[2018-04-06] MEDS: buPROPion XL 150 MG TAB.ER.24H PO SCH (10:15)
[2018-04-06 12:46] LABS: Glucose,Whole Blood 125 mg/dL (75-99)
[2018-04-06 17:40] LABS: Glucose,Whole Blood 252 mg/dL (75-99)
[2018-04-06 20:21] LABS: Glucose,Whole Blood 134 mg/dL (75-99)
[2018-04-06] MEDS: hydrOXYzine PAMOATE 25 MG CAP PO PRN (20:24)
[2018-04-06] MEDS: PRIMIDONE 50 MG TAB PO SCH (20:24)
[2018-04-06] MEDS: INSULIN DETEMIR 100 UNIT/ML 10 ML VIAL SQ SCH (20:24)
[2018-04-06] MEDS: ROSUVASTATIN 20 MG PO SCH (20:25)
[2018-04-07 04:06] LABS: Glucose,Whole Blood 179 mg/dL (75-99)
[2018-04-07 06:57] LABS: Glucose,Whole Blood 146 mg/dL (75-99)
[2018-04-07] MEDS: LISINOPRIL 5 MG TAB PO SCH (08:22)
[2018-04-07] MEDS: buPROPion XL 150 MG TAB.ER.24H PO SCH (08:22)
[2018-04-07] MEDS: TORSEMIDE 20 MG TAB PO SCH ×2 (08:22→17:03)
[2018-04-07] MEDS: CLOPIDOGREL 75 MG TAB PO SCH (08:23)
[2018-04-07] MEDS: INSULIN ASPART 100 UNIT/ML 1 ML 10 ML VIAL SQ SCH ×7 (08:23→21:03)
[2018-04-07] MEDS: DIGOXIN 125 MCG TAB PO SCH (08:23)
[2018-04-07] MEDS: APIXABAN 5 MG TAB PO SCH ×2 (08:23→17:03)
[2018-04-07] MEDS: SPIRONOLACTONE 25 MG TAB PO SCH (08:23)
[2018-04-07] MEDS: METOPROLOL SUCCINATE (ER) 25 MG TAB.ER.24H PO SCH (08:23)
[2018-04-07] MEDS: DULoxetine HCL 60 MG CAPSULE.DR PO SCH (08:23)
--- NOTE | 2018-04-07 10:03 | P.PN ---
Progress Note - Text Interval history: The patient is found in his room he follows me to an interview room. He states that his mood is a little better. He states if it wasn't for the disturbances last night he would've slept better. Appetite is stable. He indicates he attended 2 groups. He is looking forward to a visit from his this evening. We reviewed his psychotropic medications he is endorsing no side effects he has no questions regarding the medication. He indicates that the auditory hallucination is "less vivid" and feels that it is more distant. He endorses suicidal thinking and hopelessness thinking still but feels it is mildly less severe. Mental status exam: The patient is an overweight male. Again he presents quite disheveled hygiene is adequate. He is dressed in his own clothing. He is seated calmly in the chair scratching his abdomen as he speaks. He endorses a depressed mood with hopelessness thoughts and continued suicidal ideation. He reports no homicidal ideation. He reports a continued auditory hallucination as described above. He reports no visual hallucinations no specific delusions. He reports feeling safe here in the hospital. He demonstrates no verbal or physical aggressiveness. He maintains a blunted to flat affect. He initiates no conversation but provides answers to questions asked. He demonstrates no involuntary repetitive movements. He remains oriented to person place and date. Plan: The patient will continue on his current psychotropic medication. We will monitor him for safety. He is encouraged to more fully participate in the milieu. Vital signs reviewed.
[2018-04-07 12:54] LABS: Glucose,Whole Blood 207 mg/dL (75-99)
[2018-04-07 17:42] LABS: Glucose,Whole Blood 134 mg/dL (75-99)
[2018-04-07 20:50] LABS: Glucose,Whole Blood 202 mg/dL (75-99)
[2018-04-07] MEDS: INSULIN DETEMIR 100 UNIT/ML 10 ML VIAL SQ SCH (21:03)
[2018-04-07] MEDS: PRIMIDONE 50 MG TAB PO SCH (21:04)
[2018-04-07] MEDS: ROSUVASTATIN 20 MG PO SCH (21:05)
[2018-04-08] MEDS: hydrOXYzine PAMOATE 25 MG CAP PO PRN (00:52)
[2018-04-08 00:55] VITALS: TEMP 97.5
[2018-04-08 06:07] LABS: Glucose,Whole Blood 116 mg/dL (75-99)
[2018-04-08] MEDS: INSULIN ASPART 100 UNIT/ML 1 ML 10 ML VIAL SQ SCH ×6 (06:51→17:38)
[2018-04-08] MEDS: TORSEMIDE 20 MG TAB PO SCH ×2 (08:24→13:08)
[2018-04-08] MEDS: LISINOPRIL 5 MG TAB PO SCH (08:24)
[2018-04-08] MEDS: PANTOPRAZOLE 40 MG TABLET PO SCH (08:25)
[2018-04-08] MEDS: DIGOXIN 125 MCG TAB PO SCH (08:25)
[2018-04-08] MEDS: buPROPion XL 150 MG TAB.ER.24H PO SCH (08:25)
[2018-04-08] MEDS: SPIRONOLACTONE 25 MG TAB PO SCH (08:25)
[2018-04-08] MEDS: DULoxetine HCL 60 MG CAPSULE.DR PO SCH (08:25)
[2018-04-08] MEDS: CLOPIDOGREL 75 MG TAB PO SCH (08:25)
[2018-04-08] MEDS: APIXABAN 5 MG TAB PO SCH ×2 (08:25→17:35)
[2018-04-08] MEDS: METOPROLOL SUCCINATE (ER) 25 MG TAB.ER.24H PO SCH (08:25)
[2018-04-08] MEDS ORDERED: hydrOXYzine PAMOATE 25 MG CAP PO PRN (08:32)
--- NOTE | 2018-04-08 08:39 | P.PN ---
Progress Note - Text Interval history: The patient is found in the [facility] she follows me to an interview room. He indicates he has more energy this morning. He states that he has eaten breakfast he is hoping to attend groups yesterday he states he attended a couple of groups yesterday. He reports having a supportive visit from his . We reviewed his psychotropic medications he asked to titrate the dose of the Vistaril as he used to take 50 mg at home. He is describing no side effects from his psychotropic medication. Mental status exam: The patient is alert he is dressed in his own clothing hygiene is adequate grooming is mildly improved. Eye contact is appropriate. He maintains a constricted affect. He describes a depressed mood with anxiety but feels there is some mild improvement. He reports still having some hopelessness thinking he reports feeling safe here in the hospital in terms of suicidal thoughts. No homicidal ideation intent or plan. He is reporting a continued auditory hallucination that seems to be quieter. He demonstrates no verbal or physical aggressiveness he demonstrates no involuntary repetitive movements. Insight and judgment slowly improving. Plan: The patient will continue on his current psychotropic medications. I will increase the dose of the Vistaril to 50 mg as needed. We will continue monitoring him for safety. He requires continued psychiatric hospitalization. He is encouraged to more fully participate in the milieu.
[2018-04-08 10:24] LABS: Glucose,Whole Blood 175 mg/dL (75-99)
[2018-04-08 12:26] LABS: Glucose,Whole Blood 168 mg/dL (75-99)
[2018-04-08 17:16] LABS: Glucose,Whole Blood 189 mg/dL (75-99)
[2018-04-08] MEDS ORDERED: NITROGLYCERIN SL TABS 0.4 MG TAB SUBLINGUAL STA (19:06)
[2018-04-08] MEDS ORDERED: MAG HYDROX/AL HYDROX/SIMETH 30 ML CUP PO STA (19:11)
[2018-04-08] MEDS ORDERED: NITROGLYCERIN SL TABS 0.4 MG TAB SUBLINGUAL PRN (20:04)
[2018-04-08 20:17] LABS: Glucose,Whole Blood 184 mg/dL (75-99)
[2018-04-08 20:35] VITALS: BP 122/63; PULSE 81; RESP 16
== END 2018-04-08 21:13 | disposition short-term general hospital (02) | DRG 885 ==
LOC: 3MHU 17:40
PROVIDERS: ADMIT Psychiatry & Neurology Psychiatry; ATTEND Psychiatry & Neurology Psychiatry
DX: F33.3 Major depressive disorder, recurrent, severe with psychotic symptoms (principal); R45.851 Suicidal ideations; E11.42 Type 2 diabetes mellitus with diabetic polyneuropathy; E11.43 Type 2 diabetes mellitus with diabetic autonomic (poly)neuropathy; I11.0 Hypertensive heart disease with heart failure; I50.9 Heart failure, unspecified; K31.84 Gastroparesis; E66.9 Obesity, unspecified; R07.9 Chest pain, unspecified; K44.9 Diaphragmatic hernia without obstruction or gangrene; E78.5 Hyperlipidemia, unspecified; F41.9 Anxiety disorder, unspecified; G47.33 Obstructive sleep apnea (adult) (pediatric); G89.29 Other chronic pain; I25.10 Atherosclerotic heart disease of native coronary artery without angina pectoris; I25.2 Old myocardial infarction; I25.5 Ischemic cardiomyopathy; J45.909 Unspecified asthma, uncomplicated; K21.9 Gastro-esophageal reflux disease without esophagitis; M19.90 Unspecified osteoarthritis, unspecified site; G43.909 Migraine, unspecified, not intractable, without status migrainosus; M54.9 Dorsalgia, unspecified; L40.9 Psoriasis, unspecified; K29.50 Unspecified chronic gastritis without bleeding; Z79.01 Long term (current) use of anticoagulants; Z79.02 Long term (current) use of antithrombotics/antiplatelets; Z79.4 Long term (current) use of insulin; Z79.82 Long term (current) use of aspirin; Z79.899 Other long term (current) drug therapy; Z95.5 Presence of coronary angioplasty implant and graft; Z95.810 Presence of automatic (implantable) cardiac defibrillator; Z91.5 Personal history of self-harm; Z86.73 Personal history of transient ischemic attack (TIA), and cerebral infarction without residual deficits; Z87.01 Personal history of pneumonia (recurrent); Z86.14 Personal history of Methicillin resistant Staphylococcus aureus infection; Z90.49 Acquired absence of other specified parts of digestive tract; Z88.1 Allergy status to other antibiotic agents; Z91.041 Radiographic dye allergy status; Z88.5 Allergy status to narcotic agent; Z88.0 Allergy status to penicillin; Z91.013 Allergy to seafood; Z90.79 Acquired absence of other genital organ(s); Z88.8 Allergy status to other drugs, medicaments and biological substances; Z68.36 Body mass index [BMI] 36.0-36.9, adult; Z83.3 Family history of diabetes mellitus; Z80.1 Family history of malignant neoplasm of trachea, bronchus and lung; Z82.49 Family history of ischemic heart disease and other diseases of the circulatory system
CPT/HCPCS: 80053; 84484; 93005

== ENCOUNTER 2018-04-08 21:14 | Inpatient (IN) | payer MEDICARE ==
[2018-04-08 21:46] VITALS: RESP 18; BMI 38.0
[2018-04-08] MEDS ORDERED: ALBUTEROL NEBULIZED 2.5 MG/3 ML INHALATION PRN (22:24)
[2018-04-08] MEDS ORDERED: ACETAMINOPHEN TAB 325 MG TAB PO PRN (22:24)
[2018-04-08] MEDS ORDERED: hydrOXYzine PAMOATE 25 MG CAP PO PRN (22:28)
[2018-04-08] MEDS ORDERED: LORazepam 1 MG TAB PO PRN (22:32)
[2018-04-08] MEDS ORDERED: NITROGLYCERIN SL TABS 0.4 MG TAB SUBLINGUAL PRN (22:42)
[2018-04-08] MEDS ORDERED: PRIMIDONE 50 MG TAB PO SCH (22:45)
[2018-04-08] MEDS ORDERED: INSULIN DETEMIR 100 UNIT/ML 10 ML VIAL SQ SCH (22:45)
[2018-04-08] MEDS: NITROGLYCERIN OINT 1 INCH/GM PACKET TOPICAL SCH (23:34)
[2018-04-08] MEDS: HYDROmorphone 1 MG/ML 1 ML SYRINGE IVP PRN (23:37)
[2018-04-09 05:55] LABS: Glucose,Whole Blood 262 mg/dL (75-99)
[2018-04-09] MEDS: INSULIN ASPART 100 UNIT/ML 1 ML 10 ML VIAL SQ SCH ×4 (05:58→13:00)
[2018-04-09] MEDS: NITROGLYCERIN OINT 1 INCH/GM PACKET TOPICAL SCH ×2 (06:26→13:00)
[2018-04-09 07:23] LABS: Basophils # (A) 0.1 k/uL (0-0.2); Basophils % (A) 1 %; Eosinophils # (A) 0.2 k/uL (0-0.7); Eosinophils % (A) 3 %; HCT 44.5 % (39.0-53.0); HGB 14.2 gm/dL (13.0-17.5); Hypochromasia Slight; Lymphocytes # (A) 1.2 k/uL (1.0-4.8); Lymphocytes % (A) 20 %; MCH 26.3 pg (25.0-35.0); MCV 82.3 fL (80.0-100.0); Mean Platelet Volume 6.5; Monocytes # (A) 0.3 k/uL (0-1.0); Monocytes % (A) 5 %; Neutrophils # (A) 3.9 k/uL (1.3-7.7); Neutrophils % (A) 67 %; Platelet Count 282 k/uL (150-450); RDW 15.3 % (11.5-15.5); WBC 5.8 k/uL (3.8-10.6)
[2018-04-09] MEDS ORDERED: PANTOPRAZOLE 40 MG TABLET PO SCH (07:30)
[2018-04-09 07:38] LABS: Anion Gap 9 mmol/L; Blood Urea Nitrogen 59 mg/dL (9-20); Calcium 9.5 mg/dL (8.4-10.2); Carbon Dioxide 25 mmol/L (22-30); Chloride 96 mmol/L (98-107); Glucose 240 mg/dL (74-99); Magnesium 2.3 mg/dL (1.6-2.3); Potassium 5.2 mmol/L (3.5-5.1); Sodium 130 mmol/L (137-145)
--- NOTE | 2018-04-09 08:24 | P.CRDCN ---
History of Present Illness Consult date: 04/09/18 Requesting physician: Safia Clay Consult reason: chest pain Chief complaint: Chest pain History of present illness: This is a 42-year-old gentleman with known history of coronary artery disease and multiple stent placements, most recently in October of this year at [facility]. He also has history of severe ischemic cardio myopathy with prior AICD, hypertension, diabetes, hyperlipidemia, sleep apnea, prior TIA , GERD, depression. He presented to the hospital on this occasion after overdosing on insulin and suicidal attempt. He was on the mental health unit and developed some chest pain yesterday was transferred to the cardiac unit. At the time of my examination this morning he states he still has chest pain, then that he has had it through the entire night last night. His EKG shows normal sinus rhythm with no acute changes. Troponins 0.040, 0.040. Patient is noted to persistently have abnormal troponins however on this occasion they are lower than his usual. CBC is normal, sodium 1:30, potassium 5.2, BUN 59, creatinine 1.07. Past Medical History Past Medical History: Asthma, Coronary Artery Disease (CAD), Chest Pain / Angina , Heart Failure, CVA/TIA, Diabetes Mellitus, GERD/Reflux, Hyperlipidemia, Hypertension, Myocardial Infarction (SC), Osteoarthritis (OA), Pneumonia, Skin Disorder, Sleep Apnea/CPAP/BIPAP Additional Past Medical History / Comment(s): multiple vessel CAD, ischemic cardiomyopathy, diabetic neuropathy bilateral hands and feet, hypertensive cardiovascular disease, SHELIA with no device, chronic gastritis, degenerative disc disease, chronic back pain, depression with hx of suicide attempts, gastroparesis, psoriasis, UTI, migraines, TIA, PUD, hiatal hernia, L rotator cuff tear, bronchitis, pseudoaneurysm L groin post procedure. 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 Date of Last Stent Placement:: 05/25/2017 Type of Cardiac Device: Biventricular Pacemaker, AICD Device Placement Date:: 09/19/15 Past Psychological History: Anxiety, Depression, PTSD Additional Psychological History / Comment(s): Several suicide attempts with use of insulin. PTSD - in 2000 his 3mo old son in his arms (born 2 months premature). Pt states he is currently suicidal and wishes he were . He has a walker at home if needed. He drives. His spouse works days at [employer], pt has 2 adult stepchildren at home with him most of the time. Spouse manages his medications. He is on a 1500 cc fluid restriction. Smoking Status: Never smoker Past Alcohol Use History: None Reported Additional Past Alcohol Use History / Comment(s): Past alcohol abuse - pt states he quit drinking over 8yrs ago. Past Drug Use History: None Reported Additional Drug Use History / Comment(s): Pt has smoked marijuana in the past - last smoked in 1999. - Past Family History Mother Family Medical History: Coronary Artery Disease (CAD), Myocardial Infarction (SC ) Additional Family Medical History / Comment(s): 7 SC and faulty heart valve. Pt does not know the age when mother had her SC's. Father History Unknown: Yes Additional Family Medical History / Comment(s): Does not know who father is. Brother(s) Family Medical History: Cancer, Congestive Heart Failure (CHF), Myocardial Infarction (SC) Additional Family Medical History / Comment(s): Parkinsons. Pt does not know at what age his brother had an SC. Patient's other brother has lung CA Patient has Family Medical History: No Reported History Additional Family Medical History / Comment(s): There is a strong family history for heart disease, hypertension, and diabetes. Medications and Allergies Home Medications Medication Instructions Recorded Confirmed Type ARIPiprazole [ARIPiprazole Odt] 15 mg PO HS@2100 10/27/17 04/08/18 History Clopidogrel [Plavix] 75 mg PO DAILY@0800 12/03/17 04/08/18 History Metoprolol Succinate [Toprol XL] 25 mg PO DAILY@0800 12/03/17 04/08/18 History Sertraline [Zoloft] 200 mg PO DAILY@0800 12/05/17 04/08/18 History Rosuvastatin [Crestor] 20 mg PO HS@2100 12/30/17 04/08/18 History Apixaban [Eliquis] 5 mg PO BID@0800,1700 02/01/18 04/08/18 History Digoxin [Digitek] 125 mcg PO DAILY@0800 02/01/18 04/08/18 History Gabapentin [Neurontin] 400 mg PO TID@0600,1400,2100 02/01/18 04/08/18 History Lisinopril [Zestril] 5 mg PO DAILY@0800 02/01/18 04/08/18 History Spironolactone [Aldactone] 25 mg PO DAILY@0800 02/01/18 04/08/18 History Torsemide [Demadex] 40 mg PO BID 02/01/18 04/08/18 History Aspirin 81 mg PO DAILY chew 02/03/18 04/08/18 Rx Albuterol Inhaler [Ventolin Hfa 2 puff INHALATION RT-Q6H PRN 04/01/18 04/08/18 History Inhaler] Insulin Aspart [NovoLOG 6 unit SQ AC-TID 04/01/18 04/08/18 History (formulary)] Insulin Glargine [Lantus] 27 unit SQ HS 04/01/18 04/08/18 History Pantoprazole [Protonix] 40 mg PO DAILY 04/01/18 04/08/18 History Primidone [Mysoline] 100 mg PO HS 04/01/18 04/08/18 History Acetaminophen Tab [Tylenol] 325 mg PO Q6HR PRN tab 04/02/18 04/08/18 Rx Insulin Detemir [Levemir] 25 unit SQ HS #1 vial 04/02/18 04/08/18 Rx Allergies Allergy/AdvReac Type Severity Reaction Status Date / Time erythromycin base Allergy Severe Rash/Hives Verified 04/08/18 21:50 [Erythromycin Base] cephalexin monohydrate Allergy Unknown Rash/Hives Verified 04/08/18 21:50 [From Keflex] codeine Allergy Unknown Unknown Verified 04/08/18 21:50 meclizine Allergy Unknown Unknown Verified 04/08/18 21:50 Penicillins Allergy Unknown Rash/Hives Verified 04/08/18 21:50 shellfish derived Allergy Unknown Anaphylaxis Verified 04/08/18 21:50 Fish Containing Products Allergy Anaphylaxis Verified 04/08/18 21:50 [Fish] Iodinated Contrast- Oral and Allergy Anaphylaxis Verified 04/08/18 21:50 IV Dye naproxen AdvReac Unknown Compromises Verified 04/08/18 21:50 Kidney Function atorvastatin calcium AdvReac Myalgia Verified 04/08/18 21:50 [From Lipitor] glucosamine AdvReac Unknown Verified 04/08/18 21:50 hydrocodone [From [place]] AdvReac Rapid Verified 04/08/18 21:50 Heart Rate Physical Exam Vitals: Vital Signs Temp Pulse Resp BP Pulse Ox 04/09/18 03:47 98 F 80 18 98/60 97 04/09/18 00:00 88 18 126/82 97 04/08/18 21:31 98.3 F 84 18 114/74 97 Intake and Output 04/08/18 04/09/18 04/09/18 22:59 06:59 14:59 Intake Total 240 Balance 240 Intake: Oral 240 Other: Voiding Method Toilet # Voids 3 Weight 107.048 kg 100.3 kg PHYSICAL EXAMINATION: GENERAL: 42-year-old gentleman in no acute distress at the time of my examination HEENT: Head is atraumatic, normocephalic. Pupils equal, round. Sclera anicteric. Conjunctiva are clear. Mucous membranes of the mouth are moist. Neck is supple. There is no elevated jugular venous pressure.] bruit is heard. HEART EXAMINATION: Heart S1, S2 normal. No murmur or gallop heard. CHEST EXAMINATION: Lungs are clear to auscultation and precussion. No chest wall tenderness is noted on palpation or with deep breathing. ABDOMEN: Soft, nontender. Bowel sounds are heard. No organomegaly noted. EXTREMITIES: 2+ peripheral pulses with evidence of peripheral edema and no calf tenderness noted. Bilateral ear erythema NEUROLOGIC patient is awake, alert and oriented 3 ?-3. . Results 04/09/18 06:45 04/09/18 06:45 Cardiac Enzymes 04/09/18 Range/Units 00:05 Troponin I 0.040 H* (0.000-0.034) ng/mL CBC 04/09/18 Range/Units 06:45 WBC 5.8 (3.8-10.6) k/uL RBC 5.40 (4.30-5.90) m/uL Hgb 14.2 (13.0-17.5) gm/dL Hct 44.5 (39.0-53.0) % Plt Count 282 (150-450) k/uL Comprehensive Metabolic Panel 04/09/18 Range/Units 06:45 Sodium 130 L (137-145) mmol/L Potassium 5.2 H (3.5-5.1) mmol/L Chloride 96 L (98-107) mmol/L Carbon Dioxide 25 (22-30) mmol/L BUN 59 H (9-20) mg/dL Creatinine 1.07 (0.66-1.25) mg/dL Glucose 240 H (74-99) mg/dL Calcium 9.5 (8.4-10.2) mg/dL Current Medications Generic Name Dose Route Start Last Admin Trade Name Freq PRN Reason Stop Dose Admin Acetaminophen 650 mg 04/08/18 22:24 Tylenol Tab PO Q4HR PRN Fever and/ or Pain Albuterol Sulfate 2.5 mg 04/08/18 22:24 Ventolin Nebulized INHALATION RT-QID PRN Shortness Of Breath Or Wheezing Apixaban 5 mg 04/09/18 09:00 Eliquis PO BID JAKE Aripiprazole 20 mg 04/09/18 09:00 Abilify PO DAILY JAKE Bupropion HCl 150 mg 04/09/18 09:00 Wellbutrin Xl PO DAILY JAKE Clopidogrel Bisulfate 75 mg 04/09/18 09:00 Plavix PO DAILY JAKE Digoxin 125 mcg 04/09/18 09:00 Lanoxin PO DAILY JAKE Duloxetine HCl 60 mg 04/09/18 09:00 Cymbalta PO DAILY JAKE Hydromorphone HCl 0.5 mg 04/08/18 22:48 04/08/18 23:37 Dilaudid IVP 0.5 mg Q6HR PRN Administration Pain Hydroxyzine Pamoate 50 mg 04/08/18 22:28 04/09/18 03:33 Vistaril PO 50 mg Q8HR PRN Administration Anxiety Insulin Aspart 0 unit 04/09/18 07:30 04/09/18 06:35 Novolog SQ 6 unit ACHS JAKE Administration Protocol Insulin Aspart 5 unit 04/09/18 07:30 04/09/18 05:58 Novolog SQ Not Given AC-TID JAKE Insulin Detemir 30 unit 04/08/18 22:45 04/08/18 23:43 Levemir SQ 30 unit HS JAKE Administration Lisinopril 5 mg 04/09/18 09:00 Zestril PO DAILY JAKE Lorazepam 1 mg 04/08/18 22:32 Ativan PO Q12HR PRN Agitation or Acute Anxiety Metoprolol Succinate 25 mg 04/09/18 09:00 Toprol Xl PO DAILY JAKE Nitroglycerin 1 inch 04/09/18 00:00 04/09/18 06:26 Nitro-Bid Oint TOPICAL 1 inch Q6HR JAKE Administration Nitroglycerin 0.4 mg 04/08/18 22:42 Nitrostat SUBLINGUAL Q5M PRN Chest Pain Pantoprazole Sodium 40 mg 04/09/18 07:30 04/09/18 06:26 Protonix PO 40 mg AC-BRKFST JAKE Administration Primidone 100 mg 04/08/18 22:45 04/08/18 23:33 Mysoline PO 100 mg HS JAKE Administration Spironolactone 25 mg 04/09/18 09:00 Aldactone PO DAILY [facility] Torsemide 40 mg 04/09/18 09:00 Demadex PO BID [facility] Intake and Output 04/08/18 04/09/18 04/09/18 22:59 06:59 14:59 Intake Total 240 Balance 240 Intake: Oral 240 Other: Voiding Method Toilet # Voids 3 Weight 107.048 kg 100.3 kg 04/09/18 06:45 04/09/18 06:45 EKG Interpretations (text) EKG shows normal sinus rhythm with no acute changes. Assessment and Plan Plan: Assessment and plan #1 overdose with suicidal attempt #2 chest pain, atypical for acute coronary syndrome. EKG shows normal sinus rhythm with no acute changes. Troponin 0.04, 0.04. #3 known history of coronary artery disease with multiple stent placements, most recent stent was placed in October at [facility]. #4 ischemic cardio myopathy with prior AICD #5 hypertension #6 hyperlipidemia #7 history of TIA #8 sleep apnea #9 history of MRSA Plan We will continue the patient on his current medications, his pain is very atypical for acute coronary syndrome. We will repeat an echocardiogram with Doppler study. As an outpatient we recommend he follow-up with his binding machine operator and undergo stress testing at that time. Further recommendations to follow. DNP note has been reviewed, I agree with a documented findings and plan of care. Patient was seen and examined.
[2018-04-09] MEDS: HYDROmorphone 1 MG/ML 1 ML SYRINGE IVP PRN (08:54)
[2018-04-09] MEDS ORDERED: CLOPIDOGREL 75 MG TAB PO SCH (09:00)
[2018-04-09] MEDS ORDERED: SPIRONOLACTONE 25 MG TAB PO SCH (09:00)
[2018-04-09] MEDS ORDERED: DIGOXIN 125 MCG TAB PO SCH (09:00)
[2018-04-09] MEDS ORDERED: METOPROLOL SUCCINATE (ER) 25 MG TAB.ER.24H PO SCH (09:00)
[2018-04-09] MEDS ORDERED: LISINOPRIL 5 MG TAB PO SCH (09:00)
[2018-04-09] MEDS ORDERED: APIXABAN 5 MG TAB PO SCH (09:00)
[2018-04-09] MEDS ORDERED: DULoxetine HCL 60 MG CAPSULE.DR PO SCH (09:00)
[2018-04-09] MEDS ORDERED: buPROPion XL 150 MG TAB.ER.24H PO SCH (09:00)
[2018-04-09] MEDS ORDERED: TORSEMIDE 20 MG TAB PO SCH (09:00)
--- NOTE | 2018-04-09 10:03 | P.PN ---
Progress Note - Text Interval history: The patient was found in 377 bed 1 as he was transferred off of the mental health unit last night with a complaint of chest pain. The patient does have a significant cardiac history. So far his workup has been negative for any acute coronary syndrome. His EKGs have been negative for any acute changes, his troponins are known to chronically be elevated. He underwent an echocardiogram this morning. So far it appears no other intervention will be needed. The patient states that he still feeling better after receiving pain medication. He indicates he attended all groups yesterday. He feels his mood continues to improve. He has no questions regarding his psychotropic medication. He has been able to speak with his family and he states they are aware that he was transferred off of our unit. We discussed that he would transfer back to the mental health unit once medically cleared. Mental status exam: The patient is an alert male. He is a disheveled appearance he is lying in bed he is covered up to his neck with a blanket and she. Eye contact is appropriate speech is fluent. He has some spontaneous speech but mainly answers questions asked. He maintains alertness throughout the interview. He indicates his mood is better as he is experiencing less chest discomfort. He indicates he was afraid it was another heart attack. He is reporting no acute suicidal or homicidal ideation intent or plan at this time he feels safe in the hospital. He does have a environmental health and safety intern at bedside. He is endorsing a continued auditory hallucination but feels that it continues to become distant. No command auditory hallucination. No visual hallucinations no specific delusions. Overall his affect is brighter than when he was first admitted to the mental health unit. Insight and judgment slowly improving. He demonstrates no verbal or physical aggressiveness. He demonstrates no involuntary repetitive movements. He is oriented to person place and date. Affect is constricted to blunted. Plan: Major depressive disorder recurrent severe with psychosis, continue Cymbalta 60 mg daily, Wellbutrin XL 150 mg in the morning, Abilify 20 mg daily. The Cymbalta and Wellbutrin are both new medications to the patient and we are allowing them time to demonstrate efficacy. He has been starting to demonstrate improvement prior to the transfer off of the unit. Once medically stabilized he is to be transferred back to the mental health unit so we can complete his inpatient psychiatric treatment. Vital signs reviewed. The patient is agreeable with the above-noted plan.
[2018-04-09 11:12] LABS: Glucose,Whole Blood 219 mg/dL (75-99)
[2018-04-09 12:14] LABS: Glucose,Whole Blood 138 mg/dL (75-99)
[2018-04-09 12:33] VITALS: BP 91/56; PULSE 79; TEMP 97.2
--- NOTE | 2018-04-09 13:48 | ECHOF ---
Referral Reason:chest pain MEASUREMENTS -------- HEIGHT: 175.3 cm WEIGHT: 69.9 kg BP: 110/69 RVIDd: 3.3 cm (< 3.3) IVSd: 1.2 cm (0.6 - 1.1) LVIDd: 5.2 cm (3.9 - 5.3) LVPWd: 1.0 cm (0.6 - 1.1) IVSs: 1.4 cm LVIDs: 4.6 cm LVPWs: 1.0 cm LAESV Index (A-L): 29.99 ml/m Ao Diam: 3.0 cm (2.0 - 3.7) AV Cusp: 1.4 cm (1.5 - 2.6) LA Diam: 4.0 cm (2.7 - 3.8) EPSS: 1.2 cm MV E Benjy: 0.99 m/s MV DecT: 190 ms MV A Benjy: 0.31 m/s MV E/A Ratio: 3.23 RAP: 5.00 mmHg RVSP: 28.17 mmHg MV EF SLOPE: 129.22 mm/s (70 - 150) MV EXCURSION: 1.59 cm (> 18.000) FINDINGS -------- Paced rhythm. This was a technically difficult study with suboptimal views. The left ventricular size is normal. There is borderline concentric left ventricular hypertrophy. There is severe global hypokinesis of LV . Overall left ventricular systolic function is severely impaired with, an EF between 20 - 25 %. The right ventricle is mildly enlarged. LA is midly dilated 29-33ml/m2. Electronic pacemaker lead seen in the right ventricular cavity. RA appears enlarged. 3 ml of Lumason was utilized for enhancement of images. There is mild aortic valve sclerosis. Trace amount of aortic regurgitation. There is no evidence of aortic stenosis. The mitral valve leaflets are mildly thickened. There is trace to mild mitral regurgitation. Trace tricuspid regurgitation present. Right ventricular systolic pressure is normal at < 35 mmHg. There is no evidence of pulmonary hypertension. Trace/mild (physiologic) pulmonic regurgitation. The aortic root size is normal. Normal inferior vena cava with normal inspiratory collapse consistent with estimated right atrial pre ssure of 5 mmHg. There is no pericardial effusion. CONCLUSIONS -------- 1. Paced rhythm. 2. This was a technically difficult study with suboptimal views. 3. The left ventricular size is normal. 4. There is borderline concentric left ventricular hypertrophy. 5. There is severe global hypokinesis of LV . 6. Overall left ventricular systolic function is severely impaired with, an EF between 20 - 25 %. 7. The right ventricle is mildly enlarged. 8. LA is midly dilated 29-33ml/m2. 9. Electronic pacemaker lead seen in the right ventricular cavity. 10. RA appears enlarged. 11. 3 ml of Lumason was utilized for enhancement of images. 12. There is mild aortic valve sclerosis. 13. Trace amount of aortic regurgitation. 14. The mitral valve leaflets are mildly thickened. 15. There is trace to mild mitral regurgitation. 16. Trace tricuspid regurgitation present. 17. Right ventricular systolic pressure is normal at < 35 mmHg. 18. There is no evidence of pulmonary hypertension. 19. Trace/mild (physiologic) pulmonic regurgitation. 20. The aortic root size is normal. 21. There is no pericardial effusion. [employer]: Delbert Basilio RDCS
[2018-04-09 16:18] LABS: Hemoglobin A1C 10.3 % (4.0-6.0)
== END 2018-04-09 16:21 | DRG 313 ==
LOC: 3SCARD 21:14
PROVIDERS: ADMIT Hospitalist; ATTEND Hospitalist
DX: R07.9 Chest pain, unspecified (principal); F33.3 Major depressive disorder, recurrent, severe with psychotic symptoms; E11.40 Type 2 diabetes mellitus with diabetic neuropathy, unspecified; E78.5 Hyperlipidemia, unspecified; F43.10 Post-traumatic stress disorder, unspecified; G47.33 Obstructive sleep apnea (adult) (pediatric); I11.0 Hypertensive heart disease with heart failure; I25.10 Atherosclerotic heart disease of native coronary artery without angina pectoris; I25.2 Old myocardial infarction; I25.5 Ischemic cardiomyopathy; I50.9 Heart failure, unspecified; J45.909 Unspecified asthma, uncomplicated; K21.9 Gastro-esophageal reflux disease without esophagitis; Z79.01 Long term (current) use of anticoagulants; Z79.02 Long term (current) use of antithrombotics/antiplatelets; Z79.4 Long term (current) use of insulin; Z79.82 Long term (current) use of aspirin; Z82.0 Family history of epilepsy and other diseases of the nervous system; Z82.49 Family history of ischemic heart disease and other diseases of the circulatory system; Z83.3 Family history of diabetes mellitus; Z86.14 Personal history of Methicillin resistant Staphylococcus aureus infection; Z86.73 Personal history of transient ischemic attack (TIA), and cerebral infarction without residual deficits; Z95.5 Presence of coronary angioplasty implant and graft; Z95.810 Presence of automatic (implantable) cardiac defibrillator; Z88.8 Allergy status to other drugs, medicaments and biological substances; Z88.1 Allergy status to other antibiotic agents; Z91.041 Radiographic dye allergy status; Z88.5 Allergy status to narcotic agent; Z88.0 Allergy status to penicillin; Z91.013 Allergy to seafood
CPT/HCPCS: 80048; 83036; 83735; 84484; 85025; 93306

== ENCOUNTER 2018-04-09 15:09 | Inpatient (IN) | payer MEDICARE ==
[2018-04-09 16:51] VITALS: BMI 34.8
[2018-04-09] MEDS ORDERED: MAGNESIUM HYDROXIDE 2,400 MG/10 ML CUP PO PRN (17:14)
[2018-04-09] MEDS ORDERED: ACETAMINOPHEN TAB 325 MG TAB PO PRN (17:14)
[2018-04-09] MEDS ORDERED: ALBUTEROL NEBULIZED 2.5 MG/3 ML INHALATION PRN (17:18)
[2018-04-09 17:37] LABS: Glucose,Whole Blood 192 mg/dL (75-99)
[2018-04-09] MEDS: INSULIN ASPART 100 UNIT/ML 1 ML 10 ML VIAL SQ SCH ×2 (18:31→21:29)
[2018-04-09] MEDS: TORSEMIDE 20 MG TAB PO SCH (18:32)
[2018-04-09] MEDS: hydrOXYzine PAMOATE 25 MG CAP PO PRN (18:42)
[2018-04-09] MEDS: PRIMIDONE 50 MG TAB PO SCH (20:14)
[2018-04-09 20:16] LABS: Glucose,Whole Blood 334 mg/dL (75-99)
[2018-04-09] MEDS: GABAPENTIN 400 MG CAP PO SCH (20:42)
[2018-04-09] MEDS: NITROGLYCERIN SL TABS 0.4 MG TAB SUBLINGUAL PRN (20:49)
[2018-04-09] MEDS: traMADol 50 MG TAB PO PRN (21:27)
[2018-04-09] MEDS: MAG HYDROX/AL HYDROX/SIMETH 30 ML CUP PO PRN (21:27)
[2018-04-09] MEDS: INSULIN DETEMIR 100 UNIT/ML 10 ML VIAL SQ SCH (21:27)
[2018-04-10] MEDS: NITROGLYCERIN SL TABS 0.4 MG TAB SUBLINGUAL PRN (00:51)
[2018-04-10] MEDS: hydrOXYzine PAMOATE 25 MG CAP PO PRN ×2 (04:03→20:56)
[2018-04-10] MEDS: GABAPENTIN 400 MG CAP PO SCH ×3 (05:50→20:54)
[2018-04-10 06:03] LABS: Glucose,Whole Blood 156 mg/dL (75-99)
[2018-04-10] MEDS: METOPROLOL SUCCINATE (ER) 25 MG TAB.ER.24H PO SCH (08:26)
[2018-04-10] MEDS: CLOPIDOGREL 75 MG TAB PO SCH (08:26)
[2018-04-10] MEDS: DIGOXIN 125 MCG TAB PO SCH (08:26)
[2018-04-10] MEDS: TORSEMIDE 20 MG TAB PO SCH ×2 (08:26→15:40)
[2018-04-10] MEDS: buPROPion XL 150 MG TAB.ER.24H PO SCH (08:26)
[2018-04-10] MEDS: SERTRALINE 100 MG TAB PO SCH (08:26)
[2018-04-10] MEDS: LISINOPRIL 5 MG TAB PO SCH (08:26)
[2018-04-10] MEDS: SPIRONOLACTONE 25 MG TAB PO SCH (08:27)
[2018-04-10] MEDS: INSULIN ASPART 100 UNIT/ML 1 ML 10 ML VIAL SQ SCH ×7 (08:27→20:49)
[2018-04-10] MEDS: APIXABAN 5 MG TAB PO SCH ×2 (08:27→16:42)
[2018-04-10] MEDS: PANTOPRAZOLE 40 MG TABLET PO SCH (08:27)
[2018-04-10] MEDS: DULoxetine HCL 60 MG CAPSULE.DR PO SCH (08:29)
[2018-04-10] MEDS: ASPIRIN 81 MG PO SCH (08:29)
[2018-04-10] MEDS: LORazepam 1 MG TAB PO PRN (10:53)
--- NOTE | 2018-04-10 11:02 | P.PN ---
Subjective Progress Note Date: 04/10/18 Principal diagnosis: major depressive disorder with psychotic I don't feel good today. Last night he had chest pain. Objective - Vital Signs Vital signs: Vital Signs Temp 97.6 F 04/10/18 05:55 Pulse 79 04/10/18 05:55 Resp 16 04/10/18 05:55 BP 120/73 04/10/18 05:55 Pulse Ox 94 L 04/10/18 00:45 Intake & Output 04/09/18 04/10/18 04/10/18 18:59 06:59 18:59 Weight 97.99 kg - Labs Labs: Abnormal Lab Results - Last 24 Hours (Table) 04/09/18 04/09/18 04/10/18 Range/Units 17:32 20:13 05:56 POC Glucose (mg/dL) 192 H 334 H 156 H (75-99) mg/dL Assessment and Plan Assessment: Interval history: The patient is found in his room sleeping he follows me to an interview room. He states that he feels the same still depressed with hopeless thoughts and suicidal ideation. He continues to experience auditory hallucinations. He did have a visit from family last evening which was supportive he expects it will visit again tonight. We reviewed his psychotropic medications. He discusses that he still has nightmares related to his son's . We discussed possibly trialing prazosin however his blood pressures been on the lower end. We discussed the value of him participating fully in the milieu. Mental status exam: The patient is an overweight male he is dressed in his own clothing. He is markedly disheveled his hair is standing on and. He is wearing his eyeglasses. He has numerous visible tattoos on his extremities and neck. He reports a depressed mood hopeless thoughts of suicidal ideation. He endorses ongoing experience of hearing his son' s voice as a teenager. He demonstrates no verbal or physical aggressiveness. He maintains a flat affect with no reactivity. He seated calmly in the chair he demonstrates no hyperactivity. He demonstrates normal involuntary repetitive movements. Insight and judgment limited. Plan: The patient will continue on his current psychotropic medications. Increase his Abilify to 30 mg since he still hears his son voice. We will plan to titrate the Cymbalta further in the next 1-2 days. We discussed the value of him participating in all groups. Vital signs reviewed. (1) Depressed Current Visit: No Status: Acute Code(s): F32.9 - MAJOR DEPRESSIVE DISORDER, SINGLE EPISODE, UNSPECIFIED SNOMED Code(s): 34033039 (2) Major depressive disorder with psychotic features Current Visit: No Status: Acute Priority: High Code(s): F32.3 - MAJOR DEPRESSV DISORD, SINGLE EPSD, SEVERE W PSYCH FEATURES SNOMED Code(s): 19982045 (3) Suicidal ideation Current Visit: No Status: Acute Priority: High Code(s): R45.851 - SUICIDAL IDEATIONS SNOMED Code(s): 9946631 Time with Patient: Less than 30
[2018-04-10 13:21] LABS: Glucose,Whole Blood 193 mg/dL (75-99)
[2018-04-10] MEDS: traMADol 50 MG TAB PO PRN (16:41)
[2018-04-10 17:12] LABS: Glucose,Whole Blood 121 mg/dL (75-99)
[2018-04-10 20:20] LABS: Glucose,Whole Blood 261 mg/dL (75-99)
[2018-04-10] MEDS: INSULIN DETEMIR 100 UNIT/ML 10 ML VIAL SQ SCH (20:53)
[2018-04-10] MEDS: PRIMIDONE 50 MG TAB PO SCH (20:54)
[2018-04-11] MEDS: LORazepam 1 MG TAB PO PRN ×2 (00:51→18:32)
[2018-04-11] MEDS: hydrOXYzine PAMOATE 25 MG CAP PO PRN ×3 (04:45→22:22)
[2018-04-11] MEDS: GABAPENTIN 400 MG CAP PO SCH ×3 (06:11→20:25)
[2018-04-11 06:34] LABS: Glucose,Whole Blood 216 mg/dL (75-99)
[2018-04-11] MEDS: INSULIN ASPART 100 UNIT/ML 1 ML 10 ML VIAL SQ SCH ×7 (08:54→20:28)
[2018-04-11] MEDS: ARIPiprazole 15 MG TAB PO SCH (08:56)
[2018-04-11] MEDS: LISINOPRIL 5 MG TAB PO SCH (08:56)
[2018-04-11] MEDS: buPROPion XL 150 MG TAB.ER.24H PO SCH (08:56)
[2018-04-11] MEDS: SPIRONOLACTONE 25 MG TAB PO SCH (08:57)
[2018-04-11] MEDS: ASPIRIN 81 MG PO SCH (08:57)
[2018-04-11] MEDS: TORSEMIDE 20 MG TAB PO SCH ×2 (08:57→16:24)
[2018-04-11] MEDS: SERTRALINE 100 MG TAB PO SCH (08:57)
[2018-04-11] MEDS: DIGOXIN 125 MCG TAB PO SCH (08:57)
[2018-04-11] MEDS: CLOPIDOGREL 75 MG TAB PO SCH (08:57)
[2018-04-11] MEDS: APIXABAN 5 MG TAB PO SCH ×2 (08:57→16:24)
[2018-04-11] MEDS: METOPROLOL SUCCINATE (ER) 25 MG TAB.ER.24H PO SCH (08:57)
[2018-04-11] MEDS: DULoxetine HCL 60 MG CAPSULE.DR PO SCH (08:57)
[2018-04-11] MEDS: PANTOPRAZOLE 40 MG TABLET PO SCH (08:57)
[2018-04-11] MEDS: ALBUTEROL INHALER 60 PUFF/8 GM INHALER INHALATION PRN ×2 (09:16→21:22)
--- NOTE | 2018-04-11 11:36 | P.PN ---
Subjective Progress Note Date: 04/11/18 Principal diagnosis: major depressive disorder with psychotic I'm trying to get up today and go to groups. I have no chest pain today. I have no suicidal homicidal ideation today. Depression as 6 out of 10 anxiety 6 out of 10 with lethargy and fatigue. Objective - Vital Signs Vital signs: Vital Signs Temp 97.5 F L 04/11/18 00:50 Pulse 87 04/11/18 09:09 Resp 14 04/11/18 00:50 BP 115/70 04/11/18 09:09 Pulse Ox 94 L 04/10/18 00:45 - Labs Labs: Abnormal Lab Results - Last 24 Hours (Table) 04/10/18 04/10/18 04/10/18 Range/Units 13:07 17:10 20:14 POC Glucose (mg/dL) 193 H 121 H 261 H (75-99) mg/dL 04/11/18 Range/Units 06:17 POC Glucose (mg/dL) 216 H (75-99) mg/dL Assessment and Plan Assessment: Interval history: The patient is found in his room sleeping he follows me to an interview room. He states that he feels the same still depressed with hopeless thoughts and suicidal ideation. He continues to experience auditory hallucinations. He did have a visit from family last evening which was supportive he expects it will visit again tonight. We reviewed his psychotropic medications. He discusses that he still has nightmares related to his son's . We discussed possibly trialing prazosin however his blood pressures been on the lower end. We discussed the value of him participating fully in the milieu. Mental status exam: The patient is an overweight male he is dressed in his own clothing. He is markedly disheveled his hair is standing on and. He is wearing his eyeglasses. He has numerous visible tattoos on his extremities and neck. He reports a depressed mood hopeless thoughts of suicidal ideation. He endorses ongoing experience of hearing his son' s voice as a teenager. He demonstrates no verbal or physical aggressiveness. He maintains a flat affect with no reactivity. He seated calmly in the chair he demonstrates no hyperactivity. He demonstrates normal involuntary repetitive movements. Insight and judgment limited. Plan: The patient will continue on his current psychotropic medications. Increase his Abilify to 30 mg since he still hears his son voice. We will plan to titrate the Cymbalta further in the next 1-2 days. We discussed the value of him participating in all groups. Vital signs reviewed.Wellbutrin added as well for energy and mood. (1) Depressed Current Visit: No Status: Acute Code(s): F32.9 - MAJOR DEPRESSIVE DISORDER, SINGLE EPISODE, UNSPECIFIED SNOMED Code(s): 34410621 (2) Major depressive disorder with psychotic features Current Visit: No Status: Acute Priority: High Code(s): F32.3 - MAJOR DEPRESSV DISORD, SINGLE EPSD, SEVERE W PSYCH FEATURES SNOMED Code(s): 77979964 (3) Suicidal ideation Current Visit: No Status: Acute Priority: High Code(s): R45.851 - SUICIDAL IDEATIONS SNOMED Code(s): 7473175 Time with Patient: Less than 30
[2018-04-11 12:46] LABS: Glucose,Whole Blood 215 mg/dL (75-99)
--- NOTE | 2018-04-11 17:13 | CT ---
EXAMINATION TYPE: CT brain wo con DATE OF EXAM: 04/11/2018 COMPARISON: 04/01/2018 INDICATION: Fall today with Left posterior injury DLP: 1047.1 mGycm, Automated exposure control for dose reduction was used. CONTRAST: None CT of the brain is performed utilizing 3 mm thick sections through the posterior fossa and 3 mm thick sections through the remaining calvarium. Study is performed within 24 hours of arrival to the hosp ital. No abnormal hyperdensity is present to suggest an acute intracranial hemorrhage. No mass lesion is evident. No acute infarcts are evident. Mild periventricular white matter hypodensity is present, likely on th e basis of chronic white matter ischemic changes. Ventricles and sulci are prominent for the patient age. Paranasal sinuses and mastoid air cells within the [id number]-ab-grci are clear. No acute fractures are evident. Soft tissues appear within normal limits. IMPRESSIONS: 1. Mild atrophy with periventricular white matter ischemic type changes. This may be greater in the frontal regions. 2. No acute intracranial process.
[2018-04-11 17:27] LABS: Glucose,Whole Blood 146 mg/dL (75-99)
[2018-04-11 20:09] LABS: Glucose,Whole Blood 382 mg/dL (75-99)
[2018-04-11] MEDS: PRIMIDONE 50 MG TAB PO SCH (20:25)
[2018-04-11] MEDS: MAG HYDROX/AL HYDROX/SIMETH 30 ML CUP PO PRN (20:26)
[2018-04-11] MEDS: INSULIN DETEMIR 100 UNIT/ML 10 ML VIAL SQ SCH (20:29)
[2018-04-12] MEDS: NITROGLYCERIN SL TABS 0.4 MG TAB SUBLINGUAL PRN (00:47)
[2018-04-12] MEDS ORDERED: LORazepam 2 MG/ML INJ ONE (01:02)
[2018-04-12] MEDS ORDERED: HALOPERIDOL LACTATE 5 MG/ML 1 ML VIAL IM ONE (01:04)
[2018-04-12] MEDS ORDERED: LORazepam 2 MG/ML INJ IM STA (01:04)
[2018-04-12] MEDS: GABAPENTIN 400 MG CAP PO SCH ×3 (06:27→20:18)
[2018-04-12] MEDS: LORazepam 1 MG TAB PO PRN ×2 (06:27→20:47)
[2018-04-12 06:47] LABS: Glucose,Whole Blood 251 mg/dL (75-99)
[2018-04-12] MEDS: APIXABAN 5 MG TAB PO SCH ×2 (08:40→17:29)
[2018-04-12] MEDS: TORSEMIDE 20 MG TAB PO SCH ×2 (08:40→15:47)
[2018-04-12] MEDS: ASPIRIN 81 MG PO SCH (08:40)
[2018-04-12] MEDS: DULoxetine HCL 60 MG CAPSULE.DR PO SCH (08:40)
[2018-04-12] MEDS: ARIPiprazole 15 MG TAB PO SCH (08:40)
[2018-04-12] MEDS: PANTOPRAZOLE 40 MG TABLET PO SCH (08:40)
[2018-04-12] MEDS: SPIRONOLACTONE 25 MG TAB PO SCH (08:40)
[2018-04-12] MEDS: SERTRALINE 100 MG TAB PO SCH (08:40)
[2018-04-12] MEDS: buPROPion XL 150 MG TAB.ER.24H PO SCH (08:40)
[2018-04-12] MEDS: METOPROLOL SUCCINATE (ER) 25 MG TAB.ER.24H PO SCH (08:41)
[2018-04-12] MEDS: DIGOXIN 125 MCG TAB PO SCH (08:41)
[2018-04-12] MEDS: CLOPIDOGREL 75 MG TAB PO SCH (08:41)
[2018-04-12] MEDS: LISINOPRIL 5 MG TAB PO SCH (08:41)
[2018-04-12] MEDS: INSULIN ASPART 100 UNIT/ML 1 ML 10 ML VIAL SQ SCH ×7 (08:42→20:20)
[2018-04-12] MEDS: hydrOXYzine PAMOATE 25 MG CAP PO PRN ×2 (08:47→17:31)
--- NOTE | 2018-04-12 09:45 | P.PN ---
Progress Note - Text Interval history: The patient is found in the hallway he follows me to an interview room. He had a difficult evening last night. Apparently he got upset that he couldn't use the phone at approximately midnight. He became loud and agitated. A Mr. yi was called he received injectable medication but did not require restraints. He has since they escalated. He states he had a nightmare and insisted that he needed to speak to his to talk through it. He states his is part of his coping skills. He reports over the weekend he fell in the shower hitting his head a computed tomography scan was performed which demonstrated no hemorrhage. He has no questions or concerns regarding his medication. Mental status exam: The patient is an overweight male. He presents with adequate hygiene he has a disheveled appearance. He seated calmly. He is dressed in a T-shirt and shorts. He has visible tattoos on his neck upper and lower extremities. He reports having no suicidal or homicidal ideation intent or plan. He reports his nightmare he could hear his son's voice but during the daytime hours he's not hearing it. He is looking forward to being discharged soon. He demonstrates no verbal or physical aggressiveness he demonstrates no involuntary repetitive movements. Insight and judgment improving. Plan: The patient will continue on his current psychotropic medications. We will consider discharging him in the next 1-2 days. Social will contact his for collateral information as reportedly she had visited over the weekend. Vital signs reviewed. The patient is reporting no chest pain or any other physical symptoms.
[2018-04-12] MEDS: ALBUTEROL INHALER 60 PUFF/8 GM INHALER INHALATION PRN ×3 (10:01→20:43)
[2018-04-12] MEDS: traMADol 50 MG TAB PO PRN (12:26)
[2018-04-12 12:33] LABS: Glucose,Whole Blood 229 mg/dL (75-99)
[2018-04-12 15:51] VITALS: RESP 20
[2018-04-12 17:26] LABS: Glucose,Whole Blood 196 mg/dL (75-99)
[2018-04-12] MEDS: INSULIN DETEMIR 100 UNIT/ML 10 ML VIAL SQ SCH (20:17)
[2018-04-12] MEDS: PRIMIDONE 50 MG TAB PO SCH (20:18)
[2018-04-12 20:21] LABS: Glucose,Whole Blood 250 mg/dL (75-99)
[2018-04-12] MEDS ORDERED: HALOPERIDOL LACTATE 5 MG/ML 1 ML VIAL IM STA (22:32)
[2018-04-13] MEDS: hydrOXYzine PAMOATE 25 MG CAP PO PRN (04:27)
[2018-04-13] MEDS: GABAPENTIN 400 MG CAP PO SCH (04:28)
[2018-04-13 05:42] VITALS: BP 118/63; PULSE 91; TEMP 98.4
[2018-04-13 06:11] LABS: Glucose,Whole Blood 203 mg/dL (75-99)
[2018-04-13] MEDS: INSULIN ASPART 100 UNIT/ML 1 ML 10 ML VIAL SQ SCH ×2 (08:06)
[2018-04-13] MEDS: PANTOPRAZOLE 40 MG TABLET PO SCH (08:06)
[2018-04-13] MEDS: APIXABAN 5 MG TAB PO SCH (08:26)
[2018-04-13] MEDS: DIGOXIN 125 MCG TAB PO SCH (08:26)
[2018-04-13] MEDS: CLOPIDOGREL 75 MG TAB PO SCH (08:26)
[2018-04-13] MEDS: LISINOPRIL 5 MG TAB PO SCH (08:27)
[2018-04-13] MEDS: SPIRONOLACTONE 25 MG TAB PO SCH (08:28)
[2018-04-13] MEDS: DULoxetine HCL 60 MG CAPSULE.DR PO SCH (08:28)
[2018-04-13] MEDS: ARIPiprazole 15 MG TAB PO SCH (08:28)
[2018-04-13] MEDS: ASPIRIN 81 MG PO SCH (08:28)
[2018-04-13] MEDS: buPROPion XL 150 MG TAB.ER.24H PO SCH (08:28)
[2018-04-13] MEDS: TORSEMIDE 20 MG TAB PO SCH (08:28)
[2018-04-13] MEDS: METOPROLOL SUCCINATE (ER) 25 MG TAB.ER.24H PO SCH (08:51)
[2018-04-13] MEDS: ALBUTEROL INHALER 60 PUFF/8 GM INHALER INHALATION PRN (09:29)
--- NOTE | 2018-04-13 09:45 | P.DS ---
Providers Date of admission: 04/09/18 16:19 Expected date of discharge: 04/13/18 Attending physician: Win Dale Consults: 04/09/18 17:14 Consult Physician Routine Consulting Provider: Safia Clay Consult Reason/Comments: medical care Do you want consulting provider notified?: Yes Primary care physician: Stated None - Discharge Diagnosis(es) (1) Major depressive disorder, recurrent, severe with psychotic features Current Visit: Yes Status: Acute Priority: High (2) Anxiety Current Visit: Yes Status: Acute Priority: Medium Hospital Course: Brief summary of admission note: This patient is a 42-year-old male who was admitted to the mental health unit from the medical floor after he attempted suicide via insulin overdose. The patient stated that he was considering suicide for about 2 weeks prior to his attempt. While his and children slept he injected himself with his insulin medication. He reported struggling with major depressive disorder for numerous years. He has been experiencing an auditory hallucination which she believes is the voice of his son. The voice directs him to join his son. For full details please refer to my psychiatric evaluation dated 04/03/2018. Summary of hospital course: The patient was admitted to the mental health unit voluntarily. We reviewed his presenting symptoms and treatment options. We decided to continue with Abilify and titrated the dose ultimately to 30 mg daily. The Zoloft was discontinued and he was placed on Cymbalta and then later Wellbutrin XL. The patient reported no side effects to the medication. He initially stayed in his room and did not participate in the milieu. However as he improved clinically his involvement in the milieu improved. During the course of the stay he reported having chest pain he was transitioned to the telemetry floor and was monitored. He had lab work EKGs and a cardiac echo and a cardiac consultation. It was determined that his pain was atypical of an acute coronary syndrome. He was transition back to our floor. During his stay here he reported falling in the shower a computed tomography scan of his head was performed with no acute findings. The patient participated in a support meeting involving his yesterday which went well. His indicated that the patient is appropriate to return home. The patient will follow up with outpatient care. Mental status exam: The patient is an alert male appearing his stated age. He is dressed in his own clothing. Hygiene and grooming are much improved. Eye contact is good speech is fluent spontaneous nonpressured. He demonstrates a range of affect. He reports his mood is "great". He reports having no hopelessness thinking or any suicidal ideation intent or plan. He is reporting no homicidal ideation intent or plan. He is reporting that the auditory hallucination is not commanding and it is much quieter and seems muffled. He reports no visual hallucinations or any specific delusions. He demonstrates no tangential thinking this associations or flight of ideas. He demonstrates no verbal or physical aggressiveness. He is oriented to person place and date. He spontaneously describes future oriented thinking. Impressions 1. Major depressive disorder recurrent severe with psychosis, anxiety and specified, rule out posttraumatic stress disorder 2. Coronary artery disease with multiple stent placement, history of cerebrovascular accident, insulin-dependent diabetes, obstructive sleep apnea Plan: The patient will be discharged mental health unit today. He will continue on Cymbalta 60 mg daily Wellbutrin XL 150 mg in the morning Abilify 30 mg daily Vistaril 50 mg up to 3 times a day as needed for anxiety. Social work will make arrangements for outpatient follow-up. The patient will follow-up with his primary care physician and other specialists as needed. He is instructed to abstain from any use of alcohol or marijuana or any illicit drug. At this time there is no imminent safety risk he is appropriate for transition to outpatient care. He is instructed to return to the hospital with any acute safety concerns. Patient Condition at Discharge: Stable Plan - Discharge Summary Discharge Rx Participant: No New Discharge Prescriptions: New ARIPiprazole [Abilify] 30 mg PO DAILY #30 tab hydrOXYzine PAMOATE [Vistaril] 50 mg PO TID PRN #45 capsule PRN Reason: Anxiety traMADol HCl [Ultram] 50 mg PO Q6H PRN tab PRN Reason: chest pain Continue Metoprolol Succinate [Toprol XL] 25 mg PO DAILY@0800 Clopidogrel [Plavix] 75 mg PO DAILY@0800 Rosuvastatin [Crestor] 20 mg PO HS@2100 Apixaban [Eliquis] 5 mg PO BID@0800,1700 Digoxin [Digitek] 125 mcg PO DAILY@0800 Gabapentin [Neurontin] 400 mg PO TID@0600,1400,2100 Lisinopril [Zestril] 5 mg PO DAILY@0800 Spironolactone [Aldactone] 25 mg PO DAILY@0800 Torsemide [Demadex] 40 mg PO BID Aspirin 81 mg PO DAILY chew Albuterol Inhaler [Ventolin Hfa Inhaler] 2 puff INHALATION RT-Q6H PRN PRN Reason: Shortness Of Breath Primidone [Mysoline] 100 mg PO HS Pantoprazole [Protonix] 40 mg PO DAILY Insulin Glargine [Lantus] 27 unit SQ HS Insulin Aspart [NovoLOG (formulary)] 6 unit SQ AC-TID Insulin Detemir [Levemir] 25 unit SQ HS #1 vial Nitroglycerin Sl Tabs [Nitrostat] 0.4 mg SUBLINGUAL Q5M PRN tab PRN Reason: Chest Pain buPROPion XL [Wellbutrin XL] 150 mg PO DAILY #30 tab.er.24h DULoxetine HCL [Cymbalta] 60 mg PO DAILY #30 capsule.dr Discontinued Sertraline [Zoloft] 200 mg PO DAILY@0800 Acetaminophen Tab [Tylenol] 325 mg PO Q6HR PRN tab PRN Reason: Fever And/ Or Pain Albuterol Nebulized [Ventolin Nebulized] 2.5 mg INHALATION RT-QID PRN nebu PRN Reason: Shortness Of Breath Or Wheezing ARIPiprazole [Abilify] 20 mg PO DAILY tab hydrOXYzine PAMOATE [Vistaril] 50 mg PO Q8HR PRN cap PRN Reason: Anxiety LORazepam [Ativan] 1 mg PO Q12HR PRN tab PRN Reason: Agitation Or Acute Anxiety Torsemide [Demadex] 40 mg PO BID tab Discharge Medication List Clopidogrel [Plavix] 75 mg PO DAILY@0800 12/03/17 [History] Metoprolol Succinate [Toprol XL] 25 mg PO DAILY@0800 12/03/17 [History] Rosuvastatin [Crestor] 20 mg PO HS@209912/30/17 [History] Apixaban [Eliquis] 5 mg PO BID@0800,1700 02/01/18 [History] Digoxin [Digitek] 125 mcg PO DAILY@0800 02/01/18 [History] Gabapentin [Neurontin] 400 mg PO TID@0600,1400,209902/01/18 [History] Lisinopril [Zestril] 5 mg PO DAILY@0800 02/01/18 [History] Spironolactone [Aldactone] 25 mg PO DAILY@0800 02/01/18 [History] Torsemide [Demadex] 40 mg PO BID 02/01/18 [History] Aspirin 81 mg PO DAILY chew 02/03/18 [Rx] Albuterol Inhaler [Ventolin Hfa Inhaler] 2 puff INHALATION RT-Q6H PRN 04/01/18 [ History] Insulin Aspart [NovoLOG (formulary)] 6 unit SQ AC-TID 04/01/18 [History] Insulin Glargine [Lantus] 27 unit SQ HS 04/01/18 [History] Pantoprazole [Protonix] 40 mg PO DAILY 04/01/18 [History] Primidone [Mysoline] 100 mg PO HS 04/01/18 [History] Insulin Detemir [Levemir] 25 unit SQ HS #1 vial 04/02/18 [Rx] Nitroglycerin Sl Tabs [Nitrostat] 0.4 mg SUBLINGUAL Q5M PRN tab 04/09/18 [Rx] ARIPiprazole [Abilify] 30 mg PO DAILY #30 tab 04/13/18 [Rx] DULoxetine HCL [Cymbalta] 60 mg PO DAILY #30 capsule.dr 04/13/18 [Rx] buPROPion XL [Wellbutrin XL] 150 mg PO DAILY #30 tab.er.24h 04/13/18 [Rx] hydrOXYzine PAMOATE [Vistaril] 50 mg PO TID PRN #45 capsule 04/13/18 [Rx] traMADol HCl [Ultram] 50 mg PO Q6H PRN tab 04/13/18 [Rx] Follow up Appointment(s)/Referral(s): [facility] [Outside] - 04/13/18 4:00 pm (04-13-18 @ 4:00 with Trupti Chaney 04-19-18 @ 4:[address] Matson ) Activity/Diet/Wound Care/Special Instructions: Keep your follow up appointments as scheduled. Continue medications as prescribed. No alcohol or street drugs. No access to guns or weapons. Crisis line if needed .
== END 2018-04-13 10:28 | disposition home or self-care (01) | DRG 885 ==
LOC: 3MHU 16:19
PROVIDERS: ADMIT Psychiatry & Neurology Psychiatry; ATTEND Psychiatry & Neurology Psychiatry
DX: F33.3 Major depressive disorder, recurrent, severe with psychotic symptoms (principal); E11.9 Type 2 diabetes mellitus without complications; F41.9 Anxiety disorder, unspecified; G47.33 Obstructive sleep apnea (adult) (pediatric); I25.10 Atherosclerotic heart disease of native coronary artery without angina pectoris; W18.2XXA Fall in (into) shower or empty bathtub, initial encounter; Y93.E1 Activity, personal bathing and showering; Z79.4 Long term (current) use of insulin; Z79.899 Other long term (current) drug therapy; Z86.73 Personal history of transient ischemic attack (TIA), and cerebral infarction without residual deficits; Z95.5 Presence of coronary angioplasty implant and graft; Z91.5 Personal history of self-harm; F43.10 Post-traumatic stress disorder, unspecified
CPT/HCPCS: 70450; 94640

== ENCOUNTER 2018-04-20 13:38 | Inpatient (IN) | payer MEDICARE ==
[2018-04-20 14:53] LABS: Amphetamine Screen,Urine Not Detected (NotDetected); Barbiturate Screen,Urine Detected (NotDetected); Benzodiazepines Screen,Urine Not Detected (NotDetected); Cocaine Screen,Urine Not Detected (NotDetected); Methadone Screen, Urine Not Detected (NotDetected); Opiate Screen,Urine Not Detected (NotDetected); Oxycodone Screen, Urine Not Detected (NotDetected); Phencyclidine Screen,Urine Not Detected (NotDetected); Tricyclic Antidepressant,Urine Not Detected (NotDetected); Urn Cannabinoid Scrn Not Detected (NotDetected)
--- NOTE | 2018-04-20 15:08 | ED ---
General Adult HPI - General Source: patient, family, RN notes reviewed Mode of arrival: ambulatory Limitations: no limitations <Patrice Jones - Last Filed: 04/20/18 16:42> <Gadiel Morales - Last Filed: 04/20/18 20:55> - General Chief complaint: Psychiatric Symptoms Stated complaint: suicidal Time Seen by Provider: 04/20/18 13:40 - History of Present Illness Initial comments: This is a 42-year-old male who presents emergency Department complaining of suicidal ideations. Patient was just released from the psychiatric floor on the . Patient states he cannot stop thinking about his son and he keeps hearing his son's voice. Patient states however his son was only 3 months old when he 17 years ago. Patient's stated last time he felt this way he took an overdose of insulin and had to be admitted to the hospital. Patient states he did not do anything today to harm himself but he is afraid that he would. Patient denies any homicidal ideations. Patient denies any physical complaints today. Patient denies any recent fever chills or cough. Patient denies any chest pain patient denies any shortness of breath patient denies any recent fever chills or cough. (Patrice Jones) - Related Data Home Medications Medication Instructions Recorded Confirmed Clopidogrel [Plavix] 75 mg PO DAILY@0800 12/03/17 04/20/18 Metoprolol Succinate [Toprol XL] 25 mg PO DAILY@0800 12/03/17 04/20/18 Rosuvastatin [Crestor] 20 mg PO HS@2100 12/30/17 04/20/18 Apixaban [Eliquis] 5 mg PO BID@0800,1700 02/01/18 04/20/18 Digoxin [Digitek] 125 mcg PO DAILY@0800 02/01/18 04/20/18 Gabapentin [Neurontin] 400 mg PO TID@0600,1400,2100 02/01/18 04/20/18 Lisinopril [Zestril] 5 mg PO DAILY@0800 02/01/18 04/20/18 Spironolactone [Aldactone] 25 mg PO DAILY@0800 02/01/18 04/20/18 Torsemide [Demadex] 40 mg PO BID 02/01/18 04/20/18 Albuterol Inhaler [Ventolin Hfa 2 puff INHALATION RT-Q6H PRN 04/01/18 04/20/18 Inhaler] Insulin Aspart [NovoLOG 6 unit SQ AC-TID 04/01/18 04/20/18 (formulary)] Insulin Glargine [Lantus] 27 unit SQ HS 04/01/18 04/20/18 Pantoprazole [Protonix] 40 mg PO DAILY 04/01/18 04/20/18 Primidone [Mysoline] 100 mg PO HS 04/01/18 04/20/18 Previous Rx's Medication Instructions Recorded Aspirin 81 mg PO DAILY chew 02/03/18 Insulin Detemir [Levemir] 25 unit SQ HS #1 vial 04/02/18 Nitroglycerin Sl Tabs [Nitrostat] 0.4 mg SUBLINGUAL Q5M PRN tab 04/09/18 ARIPiprazole [Abilify] 30 mg PO DAILY #30 tab 04/13/18 DULoxetine HCL [Cymbalta] 60 mg PO DAILY #30 capsule.dr 04/13/18 buPROPion XL [Wellbutrin XL] 150 mg PO DAILY #30 tab.er.24h 04/13/18 hydrOXYzine PAMOATE [Vistaril] 50 mg PO TID PRN #45 capsule 04/13/18 traMADol HCl [Ultram] 50 mg PO Q6H PRN tab 04/13/18 Allergies Allergy/AdvReac Type Severity Reaction Status Date / Time erythromycin base Allergy Severe Rash/Hives Verified 04/20/18 14:59 [Erythromycin Base] cephalexin monohydrate Allergy Unknown Rash/Hives Verified 04/20/18 14:59 [From Keflex] codeine Allergy Unknown Unknown Verified 04/20/18 14:59 meclizine Allergy Unknown Unknown Verified 04/20/18 14:59 Penicillins Allergy Unknown Rash/Hives Verified 04/20/18 14:59 shellfish derived Allergy Unknown Anaphylaxis Verified 04/20/18 14:59 Fish Containing Products Allergy Anaphylaxis Verified 04/20/18 14:59 [Fish] Iodinated Contrast- Oral and Allergy Anaphylaxis Verified 04/20/18 14:59 IV Dye naproxen AdvReac Unknown Compromises Verified 04/20/18 14:59 Kidney Function atorvastatin calcium AdvReac Myalgia Verified 04/20/18 14:59 [From Lipitor] hydrocodone [From [place]] AdvReac Rapid Verified 04/20/18 14:59 Heart Rate Review of Systems ROS Other: All systems not noted in ROS Statement are negative. <Patrice Jones - Last Filed: 04/20/18 16:42> ROS Other: All systems not noted in ROS Statement are negative. <Gadiel Morales - Last Filed: 04/20/18 20:55> ROS Statement: Those systems with pertinent positive or pertinent negative responses have been documented in the HPI. Past Medical History Past Medical History: Asthma, Coronary Artery Disease (CAD), Chest Pain / Angina , Heart Failure, CVA/TIA, Diabetes Mellitus, GERD/Reflux, Hyperlipidemia, Hypertension, Myocardial Infarction (WA), Osteoarthritis (OA), Pneumonia, Skin Disorder, Sleep Apnea/CPAP/BIPAP Additional Past Medical History / Comment(s): multiple vessel CAD, ischemic cardiomyopathy, diabetic neuropathy bilateral hands and feet, hypertensive cardiovascular disease, SHELIA with no device, chronic gastritis, degenerative disc disease, chronic back pain, depression with hx of suicide attempts, gastroparesis, psoriasis, UTI, migraines, TIA, PUD, hiatal hernia, L rotator cuff tear, bronchitis, pseudoaneurysm L groin post procedure. 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 Date of Last Stent Placement:: 05/25/2017 Type of Cardiac Device: Biventricular Pacemaker, AICD Device Placement Date:: 09/19/15 Past Psychological History: Anxiety, Depression, PTSD Smoking Status: Never smoker Past Alcohol Use History: None Reported Past Drug Use History: None Reported - Past Family History Mother Family Medical History: Coronary Artery Disease (CAD), Myocardial Infarction (WA ) Additional Family Medical History / Comment(s): 7 WA and faulty heart valve. Pt does not know the age when mother had her WA's. Father History Unknown: Yes Additional Family Medical History / Comment(s): Does not know who father is. Brother(s) Family Medical History: Cancer, Congestive Heart Failure (CHF), Myocardial Infarction (WA) Additional Family Medical History / Comment(s): Parkinsons. Pt does not know at what age his brother had an WA. Patient's other brother has lung CA Patient has Family Medical History: No Reported History Additional Family Medical History / Comment(s): There is a strong family history for heart disease, hypertension, and diabetes. <Patrice Jones - Last Filed: 04/20/18 16:42> General Exam Limitations: no limitations <Patrice Jones - Last Filed: 04/20/18 16:42> <Gadiel Morales - Last Filed: 04/20/18 20:55> - General Exam Comments Initial Comments: GENERAL: Patient is well-developed and well-nourished. Patient is nontoxic and well- hydrated and is in no acute distress. ENT: Neck is soft and supple. No significant lymphadenopathy is noted. Oropharynx is clear. Moist mucous membranes. Neck has full range of motion without eliciting any pain. EYES: The sclera were anicteric and conjunctiva were pink and moist. Extraocular movements were intact and pupils were equal round and reactive to light. Eyelids were unremarkable. PULMONARY: Unlabored respirations. Good breath sounds bilaterally. No audible rales rhonchi or wheezing was noted. CARDIOVASCULAR: There is a regular rate and rhythm without any murmurs gallops or rubs. ABDOMEN: Soft and nontender with normal bowel sounds. No palpable organomegaly was noted. There is no palpable pulsatile mass. SKIN: Skin is clear with no lesions or rashes and otherwise unremarkable. NEUROLOGIC: Patient is alert and oriented x3. Cranial nerves II through XII are grossly intact. Motor and sensory are also intact. Normal speech, volume and content. Symmetrical smile. MUSCULOSKELETAL: Normal extremities with adequate strength and full range of motion. No lower extremity swelling or edema. No calf tenderness. LYMPHATICS: No significant lymphadenopathy is noted PSYCHIATRIC: Patient states he suicidal because he can't stop thinking of his 3-month-old son who 17 years ago (Patrice Jones) Vital Signs 04/20/18 13:47 Temperature 97.7 F Pulse Rate 86 Respiratory 18 Rate Blood Pressure 109/79 O2 Sat by Pulse 100 Oximetry Medical Decision Making <Patrice Jones - Last Filed: 04/20/18 16:42> <Gadiel Morales - Last Filed: 04/20/18 20:55> - Medical Decision Making Shortly after I interviewed the patient he was requesting food and nursing gave it to him and he tolerated it fine. Dr. Morales will be taking over the care of this patient at 5 PM (Patrice Jones) Patient was seen by mental health services, who will admit. (Gadiel Morales) - Lab Data Lab Results 04/20/18 04/20/18 Range/Units 14:10 15:27 POC Glucose (mg/dL) 364 H (75-99) mg/dL POC Glu [facility] Internship ID Oscar Erica Urine Opiates Screen Not Detected (NotDetected) Ur Oxycodone Screen Not Detected (NotDetected) Urine Methadone Screen Not Detected (NotDetected) Ur Propoxyphene Screen Not Detected (NotDetected) Ur Barbiturates Screen Detected H (NotDetected) U Tricyclic Antidepress Not Detected (NotDetected) Ur Phencyclidine Scrn Not Detected (NotDetected) Ur Amphetamines Screen Not Detected (NotDetected) U Methamphetamines Scrn Not Detected (NotDetected) U Benzodiazepines Scrn Not Detected (NotDetected) Urine Cocaine Screen Not Detected (NotDetected) U Marijuana (THC) Screen Not Detected (NotDetected) Disposition <Patrice Jones - Last Filed: 04/20/18 16:42> <Gadiel Morales - Last Filed: 04/20/18 20:55> Clinical Impression: Suicidal ideation Disposition: TRANSFER TO PSYCH HOSP/UNIT Referrals: Junie New MD [Primary Care Provider] - 1-2 days
[2018-04-20] MEDS ORDERED: INSULIN ASPART 100 UNIT/ML 1 ML 10 ML VIAL SQ ONE (15:31)
[2018-04-20 15:40] LABS: Glucose,Whole Blood 364 mg/dL (75-99)
[2018-04-20] MEDS ORDERED: MAGNESIUM HYDROXIDE 2,400 MG/10 ML CUP PO PRN (21:01)
[2018-04-20] MEDS ORDERED: ACETAMINOPHEN TAB 325 MG TAB PO PRN (21:01)
[2018-04-20] MEDS ORDERED: MAG HYDROX/AL HYDROX/SIMETH 30 ML CUP PO PRN (21:01)
[2018-04-20] MEDS ORDERED: GABAPENTIN 400 MG CAP PO PRN (21:09)
[2018-04-20 21:34] LABS: Glucose,Whole Blood 350 mg/dL (75-99)
[2018-04-20 21:43] VITALS: BMI 39.6
[2018-04-20] MEDS ORDERED: hydrOXYzine PAMOATE 25 MG CAP PO PRN (22:17)
[2018-04-20] MEDS: TORSEMIDE 20 MG TAB PO SCH (22:41)
[2018-04-20] MEDS: GABAPENTIN 400 MG CAP PO SCH (22:41)
[2018-04-20] MEDS: PRIMIDONE 50 MG TAB PO SCH (22:42)
[2018-04-20] MEDS: INSULIN DETEMIR 100 UNIT/ML 10 ML VIAL SQ SCH (22:42)
[2018-04-20] MEDS: INSULIN ASPART 100 UNIT/ML 1 ML 10 ML VIAL SQ SCH (22:45)
[2018-04-21] MEDS ORDERED: diphenhydrAMINE 25 MG CAP PO STA (02:08)
[2018-04-21 02:15] LABS: Glucose,Whole Blood 157 mg/dL (75-99)
[2018-04-21 06:09] LABS: Glucose,Whole Blood 98 mg/dL (75-99)
[2018-04-21] MEDS: INSULIN ASPART 100 UNIT/ML 1 ML 10 ML VIAL SQ SCH ×7 (06:56→21:01)
[2018-04-21] MEDS: DIGOXIN 125 MCG TAB PO SCH (07:49)
[2018-04-21] MEDS: METOPROLOL SUCCINATE (ER) 25 MG TAB.ER.24H PO SCH (07:49)
[2018-04-21] MEDS: APIXABAN 5 MG TAB PO SCH ×2 (07:49→17:08)
[2018-04-21] MEDS: DULoxetine HCL 60 MG CAPSULE.DR PO SCH (07:50)
[2018-04-21] MEDS: TORSEMIDE 20 MG TAB PO SCH ×2 (07:50→20:50)
[2018-04-21] MEDS: GABAPENTIN 400 MG CAP PO SCH ×2 (07:50→20:50)
[2018-04-21] MEDS: CLOPIDOGREL 75 MG TAB PO SCH (07:50)
[2018-04-21] MEDS: LISINOPRIL 5 MG TAB PO SCH (07:50)
[2018-04-21] MEDS: SPIRONOLACTONE 25 MG TAB PO SCH (07:51)
[2018-04-21] MEDS: buPROPion XL 150 MG TAB.ER.24H PO SCH ×2 (08:46→14:37)
[2018-04-21] MEDS: ALBUTEROL INHALER 60 PUFF/8 GM INHALER INHALATION PRN ×2 (09:32→20:55)
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
[2018-04-21] MEDS: hydrOXYzine PAMOATE 25 MG CAP PO PRN ×2 (12:21→20:51)
[2018-04-21 12:31] LABS: Glucose,Whole Blood 192 mg/dL (75-99)
[2018-04-21 17:14] LABS: Glucose,Whole Blood 175 mg/dL (75-99)
[2018-04-21] MEDS: traMADol 50 MG TAB PO PRN (18:37)
[2018-04-21 20:25] LABS: Glucose,Whole Blood 188 mg/dL (75-99)
[2018-04-21] MEDS: PRIMIDONE 50 MG TAB PO SCH (20:50)
[2018-04-21] MEDS: PALIPERIDONE 6 MG TAB.ER.24 PO SCH (20:50)
[2018-04-21] MEDS: INSULIN DETEMIR 100 UNIT/ML 10 ML VIAL SQ SCH (21:35)
[2018-04-21] MEDS ORDERED: LORazepam 1 MG TAB PO STA (23:42)
[2018-04-22] MEDS: hydrOXYzine PAMOATE 25 MG CAP PO PRN (03:00)
[2018-04-22 03:11] LABS: Glucose,Whole Blood 210 mg/dL (75-99)
[2018-04-22 06:06] LABS: Glucose,Whole Blood 174 mg/dL (75-99)
[2018-04-22] MEDS: INSULIN ASPART 100 UNIT/ML 1 ML 10 ML VIAL SQ SCH ×9 (08:17→20:49)
[2018-04-22] MEDS ORDERED: LORazepam 2 MG/ML INJ IM PRN (09:38)
--- NOTE | 2018-04-22 09:43 | P.PN ---
Progress Note - Text Interval history: The patient is found in the [facility] he follows me to an interview room. He reports his mood is frustrated. He states he decided not to take his medicine today as he felt angry with the midnight staff. He was upset that he wasn't able to make phone calls at 2 AM. He states he didn't sleep well and he had another nightmare. We attempted to discuss some of these issues the patient is somewhat obstinate this morning. He indicates that he doesn't want to continue treatment here and wants to go to another facility. We discussed that that's not likely to occur as there is no medical need for transfer. He is encouraged to be more objective with the group activities and participate more fully. We reviewed his psychotropic medications. We discussed having him using the [facility] program as a transition plan once discharged from this unit. He informs me that he withdrew his voluntary status last evening. We discussed the implications of that decision. Mental status exam: The patient is seated calmly in the chair. He is dressed in his own clothing is a disheveled appearance. Eye contact is appropriate. He states "I'm not getting the help I need". He reports having suicidal thoughts a nightmare last evening and they continued auditory hallucination however does noncommanding. He is reporting no homicidal ideation. He demonstrates no verbal or physical aggressiveness he demonstrates no repetitive involuntary movements. Insight and judgment limited. He maintains a constricted affect. Plan: We will continue the patient's psychotropic medications as needed we will add Ativan temporarily should he become agitated. We discussed his decision to withdrawal his voluntary status in detail. We discussed a possible plan of transitioning to the [facility] program. He is encouraged to participate in groups. Vital signs reviewed.
[2018-04-22] MEDS: DIGOXIN 125 MCG TAB PO SCH (11:24)
[2018-04-22] MEDS: TORSEMIDE 20 MG TAB PO SCH ×2 (11:25→16:22)
[2018-04-22] MEDS: METOPROLOL SUCCINATE (ER) 25 MG TAB.ER.24H PO SCH (11:25)
[2018-04-22] MEDS: APIXABAN 5 MG TAB PO SCH ×2 (11:25→16:22)
[2018-04-22] MEDS: GABAPENTIN 400 MG CAP PO SCH ×2 (11:25→20:47)
[2018-04-22] MEDS: CLOPIDOGREL 75 MG TAB PO SCH (11:25)
[2018-04-22] MEDS: LISINOPRIL 5 MG TAB PO SCH (11:25)
[2018-04-22] MEDS: SPIRONOLACTONE 25 MG TAB PO SCH (11:25)
[2018-04-22] MEDS: DULoxetine HCL 60 MG CAPSULE.DR PO SCH (11:27)
[2018-04-22] MEDS: buPROPion XL 150 MG TAB.ER.24H PO SCH (11:27)
[2018-04-22 12:39] LABS: Glucose,Whole Blood 225 mg/dL (75-99)
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
[2018-04-22 17:28] LABS: Glucose,Whole Blood 125 mg/dL (75-99)
[2018-04-22] MEDS: LORazepam 1 MG TAB PO PRN (17:30)
[2018-04-22] MEDS: traMADol 50 MG TAB PO PRN (18:37)
[2018-04-22 19:42] LABS: Glucose,Whole Blood 199 mg/dL (75-99)
[2018-04-22] MEDS: PRIMIDONE 50 MG TAB PO SCH (20:47)
[2018-04-22] MEDS: PALIPERIDONE 6 MG TAB.ER.24 PO SCH (20:47)
[2018-04-22] MEDS: INSULIN DETEMIR 100 UNIT/ML 10 ML VIAL SQ SCH (20:50)
[2018-04-23] MEDS: hydrOXYzine PAMOATE 25 MG CAP PO PRN ×2 (00:19→08:14)
[2018-04-23] MEDS: LORazepam 1 MG TAB PO PRN (04:14)
[2018-04-23] MEDS: traMADol 50 MG TAB PO PRN (04:14)
[2018-04-23 07:13] LABS: Glucose,Whole Blood 113 mg/dL (75-99)
[2018-04-23] MEDS: ALBUTEROL INHALER 60 PUFF/8 GM INHALER INHALATION PRN ×3 (08:05→18:58)
[2018-04-23] MEDS: INSULIN ASPART 100 UNIT/ML 1 ML 10 ML VIAL SQ SCH ×7 (08:06→20:40)
[2018-04-23] MEDS: DIGOXIN 125 MCG TAB PO SCH (08:07)
[2018-04-23] MEDS: CLOPIDOGREL 75 MG TAB PO SCH (08:07)
[2018-04-23] MEDS: APIXABAN 5 MG TAB PO SCH ×2 (08:07→17:18)
[2018-04-23] MEDS: METOPROLOL SUCCINATE (ER) 25 MG TAB.ER.24H PO SCH (08:08)
[2018-04-23] MEDS: LISINOPRIL 5 MG TAB PO SCH (08:08)
[2018-04-23] MEDS: buPROPion XL 150 MG TAB.ER.24H PO SCH (08:08)
[2018-04-23] MEDS: TORSEMIDE 20 MG TAB PO SCH ×3 (08:08→17:24)
[2018-04-23] MEDS: DULoxetine HCL 60 MG CAPSULE.DR PO SCH (08:08)
[2018-04-23] MEDS: SPIRONOLACTONE 25 MG TAB PO SCH (08:08)
[2018-04-23] MEDS: GABAPENTIN 400 MG CAP PO SCH ×2 (08:20→20:39)
[2018-04-23 08:57] LABS: Glucose,Whole Blood 137 mg/dL (75-99)
[2018-04-23 09:28] VITALS: TEMP 98.1
[2018-04-23] MEDS ORDERED: SODIUM CHLORIDE 0.9% 500 ML 500 ML IV ONE ×2 (09:41→09:53)
--- NOTE | 2018-04-23 09:54 | P.PN ---
Progress Note - Text Interval history: The patient is found in his room he is lying in bed. He was observed out in the milieu earlier this morning. He reports feeling tired. His blood pressure has been low nursing has been monitoring. We discussed that it could be the effects of combining some of his psychotropic medications which we will address. It appears he received Ativan last evening and early this morning. He was observed eating this morning he's been drinking fluids. He is reporting no pain at this time. He indicates that his mood is okay but he continues to struggle with suicidal thoughts. He states that they are there is trying not to act on any of them. He indicates he continues to experience an auditory hallucination that is difficult to block out. He has been in contact with his social work has been in communication with his as well. He states that he is withdrawn his AMA notice. He is willing to remain here voluntarily. Mental status exam: The patient is an overweight male appearing his stated age. He is lying in bed he is alert eye contact is appropriate he has spontaneous speech that is nonpressured. He reports that his mood continues to be a struggle with suicidal thoughts and the auditory hallucination. He reports no homicidal ideation. He demonstrates no involuntary repetitive movements. He demonstrates no verbal or physical aggressiveness. Affect is constricted. He appears to be in no discomfort. He is able to move his extremities respiratory rate appears normal. Insight and judgment limited. Plan: We will discontinue the oral dose of invega and discontinue the Vistaril for now. We will monitor his use of the Ativan. He is encouraged to participate in the milieu. We will continue monitoring vital signs. We will continue to monitor him for safety in terms of his suicidal thinking.
[2018-04-23 11:21] LABS: Anisocytosis Slight; Basophils % (A) 1 %; Eosinophils # (A) 0.1 k/uL (0-0.7); Eosinophils % (A) 3 %; HCT 35.9 % (39.0-53.0); HGB 11.7 gm/dL (13.0-17.5); Hypochromasia Slight; Lymphocytes % (A) 20 %; MCHC 32.6 g/dL (31.0-37.0); MCV 82.6 fL (80.0-100.0); Monocytes # (A) 0.3 k/uL (0-1.0); Monocytes % (A) 5 %; Neutrophils # (A) 3.5 k/uL (1.3-7.7); Neutrophils % (A) 70 %; Platelet Count 164 k/uL (150-450); RBC 4.34 m/uL (4.30-5.90); RDW 16.1 % (11.5-15.5)
[2018-04-23 11:46] LABS: Albumin 3.2 g/dL (3.5-5.0); Calcium 8.7 mg/dL (8.4-10.2); Potassium 4.4 mmol/L (3.5-5.1); Total Bilirubin 0.4 mg/dL (0.2-1.3); Total Protein 5.8 g/dL (6.3-8.2)
[2018-04-23 12:29] LABS: Glucose,Whole Blood 199 mg/dL (75-99)
--- NOTE | 2018-04-23 17:00 | P.PN ---
Subjective Evaluated the patient today because of his dizziness and that he said multiple calls from the floor because of his significant dizziness and hypotension with systolic blood pressures going to high 70s. Patient received a bolus of 500 mL of normal saline. The blood pressure did improve but patient remains the to have dizziness. I'll obtain a chest x-ray make sure he is not retaining fluid and will hold off on diuretic therapy today and tomorrow morning along with tomorrow morning lisinopril. Constitutional: Denied any fatigue denied any fever. Cardio vascular: denied any chest pain, palpitations complaining of dizziness as mentioned above Gastrointestinal denied any nausea vomiting Pulmonary: Denied any shortness of breath cough Neurologic denied any new focal deficits All inpatient medications were reviewed and appropriate changes in these medications as dictated in the interval history and assessment and plan. Objective - Vital Signs Vital signs: Vital Signs Temp 98.1 F 04/23/18 08:30 Pulse 79 04/23/18 12:34 Resp 16 04/23/18 12:34 BP 112/69 04/23/18 12:34 Pulse Ox 99 04/20/18 21:36 Intake & Output 04/22/18 04/23/18 04/23/18 18:59 06:59 18:59 Intake Total 500 Balance 500 Intake: IV 500 Invasive Line 1 500 - Exam PHYSICAL EXAMINATION: GENERAL: The patient is alert and oriented x3, not in any acute distress. Well developed, well nourished. HEENT: Pupils are round and equally reacting to light. EOMI. No scleral icterus. No conjunctival pallor. Normocephalic, atraumatic. No pharyngeal erythema. No thyromegaly. CARDIOVASCULAR: S1 and S2 present. No murmurs, rubs, or gallops. PULMONARY: Chest is clear to auscultation, no wheezing or crackles. ABDOMEN: Soft, nontender, nondistended, normoactive bowel sounds. No palpable organomegaly. MUSCULOSKELETAL: No joint swelling or deformity. EXTREMITIES: No cyanosis, clubbing, or pedal edema. NEUROLOGICAL: Gross neurological examination did not reveal any focal deficits. SKIN: No rashes. - Labs CBC & Chem 7: 04/23/18 10:59 04/23/18 10:59 Labs: Abnormal Lab Results - Last 24 Hours (Table) 04/22/18 04/22/18 04/23/18 Range/Units 17:25 19:39 07:10 Hgb (13.0-17.5) gm/dL Hct (39.0-53.0) % RDW (11.5-15.5) % Sodium (137-145) mmol/L Chloride (98-107) mmol/L BUN (9-20) mg/dL Glucose (74-99) mg/dL POC Glucose (mg/dL) 125 H 199 H 113 H (75-99) mg/dL Alkaline Phosphatase (38-126) U/L Total Protein (6.3-8.2) g/dL Albumin (3.5-5.0) g/dL 04/23/18 04/23/18 04/23/18 Range/Units 08:44 10:59 10:59 Hgb 11.7 L (13.0-17.5) gm/dL Hct 35.9 L (39.0-53.0) % RDW 16.1 H (11.5-15.5) % Sodium 134 L (137-145) mmol/L Chloride 95 L (98-107) mmol/L BUN 57 H (9-20) mg/dL Glucose 202 H (74-99) mg/dL POC Glucose (mg/dL) 137 H (75-99) mg/dL Alkaline Phosphatase 165 H (38-126) U/L Total Protein 5.8 L (6.3-8.2) g/dL Albumin 3.2 L (3.5-5.0) g/dL 04/23/18 Range/Units 12:24 Hgb (13.0-17.5) gm/dL Hct (39.0-53.0) % RDW (11.5-15.5) % Sodium (137-145) mmol/L Chloride (98-107) mmol/L BUN (9-20) mg/dL Glucose (74-99) mg/dL POC Glucose (mg/dL) 199 H (75-99) mg/dL Alkaline Phosphatase (38-126) U/L Total Protein (6.3-8.2) g/dL Albumin (3.5-5.0) g/dL Assessment and Plan Plan: 1 dizziness and hypotension probably secondary to excessive diuretic therapy which is being held, we'll closely monitor will also obtain a chest x-ray repeat basic metabolic profile tomorrow -Hyponatremia possible hypovolemic hyponatremia from excessive diuretic therapy -Possible mild acute renal failure secondary to diuretic therapy which is being held -Major depression: Management as per primary service -Coronary artery disease -Congestive heart failure chronic systolic dysfunction with a defibrillator in place patient has ischemic cardiomyopathy which was severe patient clinically appears to be euvolemic or hypovolemic diuretic therapy is being held because of above-mentioned reasons. -Type 2 diabetes mellitus: Demar controlled now after increasing the Lantus dose -Hypertension -Osteoarthritis -Obstructive sleep apnea continue with sleep apnea machine -Gastroesophageal reflux disease For above-mentioned chronic medical problems patient was resumed on appropriate home medications all other medical problems appears to be clinically stable considering multiple medical problems and multiple medications he is on how will obtain basic metabolic profile.
[2018-04-23 17:14] LABS: Glucose,Whole Blood 261 mg/dL (75-99)
[2018-04-23 20:05] LABS: Glucose,Whole Blood 267 mg/dL (75-99)
[2018-04-23] MEDS: INSULIN DETEMIR 100 UNIT/ML 10 ML VIAL SQ SCH (20:41)
[2018-04-23] MEDS: PRIMIDONE 50 MG TAB PO SCH (20:41)
[2018-04-23] MEDS: NITROGLYCERIN SL TABS 0.4 MG TAB SUBLINGUAL PRN ×4 (20:50→23:43)
[2018-04-23 21:52] VITALS: RESP 16
[2018-04-23 22:47] VITALS: BP 125/72; PULSE 81
[2018-04-24] MEDS ORDERED: LISINOPRIL 2.5 MG TAB PO SCH (08:00)
[2018-04-24] MEDS ORDERED: ASPIRIN 81 MG PO SCH (09:00)
== END 2018-04-24 00:39 | disposition short-term general hospital (02) | DRG 885 ==
LOC: EC 13:38 → 3MHU 20:58
PROVIDERS: ADMIT Psychiatry & Neurology Psychiatry; ATTEND Psychiatry & Neurology Psychiatry
DX: F33.3 Major depressive disorder, recurrent, severe with psychotic symptoms (principal); I50.22 Chronic systolic (congestive) heart failure; N17.9 Acute kidney failure, unspecified; E87.1 Hypo-osmolality and hyponatremia; E11.40 Type 2 diabetes mellitus with diabetic neuropathy, unspecified; E78.5 Hyperlipidemia, unspecified; F43.10 Post-traumatic stress disorder, unspecified; G47.33 Obstructive sleep apnea (adult) (pediatric); I11.0 Hypertensive heart disease with heart failure; I25.10 Atherosclerotic heart disease of native coronary artery without angina pectoris; I25.2 Old myocardial infarction; I25.5 Ischemic cardiomyopathy; J45.909 Unspecified asthma, uncomplicated; K21.9 Gastro-esophageal reflux disease without esophagitis; Z91.5 Personal history of self-harm; Z79.01 Long term (current) use of anticoagulants; Z79.02 Long term (current) use of antithrombotics/antiplatelets; Z79.4 Long term (current) use of insulin; Z79.82 Long term (current) use of aspirin; Z79.899 Other long term (current) drug therapy; Z82.0 Family history of epilepsy and other diseases of the nervous system; Z82.49 Family history of ischemic heart disease and other diseases of the circulatory system; Z83.3 Family history of diabetes mellitus; Z86.73 Personal history of transient ischemic attack (TIA), and cerebral infarction without residual deficits; Z91.410 Personal history of adult physical and sexual abuse; Z88.8 Allergy status to other drugs, medicaments and biological substances; Z88.1 Allergy status to other antibiotic agents; Z91.041 Radiographic dye allergy status; Z88.5 Allergy status to narcotic agent; Z91.013 Allergy to seafood; Z90.49 Acquired absence of other specified parts of digestive tract; Z95.5 Presence of coronary angioplasty implant and graft; Z95.810 Presence of automatic (implantable) cardiac defibrillator; T50.2X5A Adverse effect of carbonic-anhydrase inhibitors, benzothiadiazides and other diuretics, initial encounter
CPT/HCPCS: 36415; 80053; 80306; 82075; 83735; 84484; 85025; 93005; 94640; 99285

== ENCOUNTER 2018-04-24 00:17 | Inpatient (IN) | payer MEDICARE ==
[2018-04-24] MEDS ORDERED: NITROGLYCERIN SL TABS 0.4 MG TAB SUBLINGUAL PRN (00:56)
[2018-04-24] MEDS: MORPHINE SULFATE 4 MG/ML SYRINGE IV PRN ×6 (01:25→22:40)
[2018-04-24] MEDS ORDERED: HEPARIN SOD,PORK IN 0.45% NACL 25,000 UNIT in 0.45% NACL 1 500ML.BAG IV SCH (02:00)
[2018-04-24 02:31] VITALS: BMI 38.2
[2018-04-24] MEDS ORDERED: ALBUTEROL NEBULIZED 2.5 MG/3 ML INHALATION PRN (05:35)
[2018-04-24] MEDS: SODIUM CHLORIDE 0.9% 1,000 ML IV SCH (05:58)
[2018-04-24 06:03] LABS: Glucose,Whole Blood 192 mg/dL (75-99)
[2018-04-24 06:40] LABS: Anisocytosis Slight; Basophils % (A) 1 %; Eosinophils # (A) 0.2 k/uL (0-0.7); Eosinophils % (A) 4 %; HCT 35.5 % (39.0-53.0); HGB 11.7 gm/dL (13.0-17.5); Lymphocytes # (A) 1.1 k/uL (1.0-4.8); Lymphocytes % (A) 23 %; MCH 27.2 pg (25.0-35.0); MCV 82.5 fL (80.0-100.0); Monocytes # (A) 0.2 k/uL (0-1.0); Monocytes % (A) 5 %; Neutrophils # (A) 3.2 k/uL (1.3-7.7); Neutrophils % (A) 66 %; Platelet Count 161 k/uL (150-450); RBC 4.31 m/uL (4.30-5.90); WBC 4.9 k/uL (3.8-10.6)
[2018-04-24] MEDS: GABAPENTIN 400 MG CAP PO SCH ×3 (06:56→20:30)
[2018-04-24] MEDS: PANTOPRAZOLE 40 MG TABLET PO SCH (06:56)
[2018-04-24] MEDS: INSULIN ASPART 100 UNIT/ML 1 ML 10 ML VIAL SQ SCH ×7 (06:56→20:32)
[2018-04-24 07:07] LABS: Anion Gap 9 mmol/L; Blood Urea Nitrogen 53 mg/dL (9-20); Calcium 8.8 mg/dL (8.4-10.2); Carbon Dioxide 25 mmol/L (22-30); Chloride 100 mmol/L (98-107); Glucose 191 mg/dL (74-99); Potassium 4.8 mmol/L (3.5-5.1); Sodium 134 mmol/L (137-145)
[2018-04-24] MEDS ORDERED: LISINOPRIL 2.5 MG TAB PO SCH (08:00)
[2018-04-24] MEDS ORDERED: ASPIRIN 81 MG PO SCH (09:00)
[2018-04-24] MEDS: SPIRONOLACTONE 25 MG TAB PO SCH (09:01)
[2018-04-24] MEDS: CLOPIDOGREL 75 MG TAB PO SCH (09:01)
[2018-04-24] MEDS: DIGOXIN 125 MCG TAB PO SCH (09:01)
[2018-04-24] MEDS: METOPROLOL SUCCINATE (ER) 25 MG TAB.ER.24H PO SCH (09:01)
[2018-04-24] MEDS: DULoxetine HCL 60 MG CAPSULE.DR PO SCH (09:01)
[2018-04-24] MEDS: diphenhydrAMINE 50 MG CAP PO PRN ×2 (09:02→20:30)
[2018-04-24] MEDS: TORSEMIDE 20 MG TAB PO SCH ×2 (09:04→20:29)
[2018-04-24] MEDS: buPROPion XL 150 MG TAB.ER.24H PO SCH (09:04)
[2018-04-24] MEDS: ISOSORBIDE MONONITRATE ER 30 MG TAB.ER.24H PO SCH (09:04)
--- NOTE | 2018-04-24 09:08 | XR ---
EXAMINATION TYPE: XR chest 1V portable DATE OF EXAM: 04/24/2018 COMPARISON: 04/01/2018 HISTORY: Difficulty breathing. Follow-up exam. TECHNIQUE: Single frontal view of the chest is obtained. FINDINGS: There is resolution of the previously seen pulmonary vascular congestion and right basilar airspace disease. Cardiomegaly and multilead left-sided cardiac device remain. No sizable pneumothor ax or pleural effusion. Osseous structures appear intact IMPRESSION: Resolution the previously seen mild pulmonary vascular congestion and right basilar airs pace disease. No acute cardiopulmonary process.
[2018-04-24 11:47] LABS: Glucose,Whole Blood 221 mg/dL (75-99)
--- NOTE | 2018-04-24 12:22 | P.CRDCN ---
History of Present Illness History of present illness: This is a 42-year-old male with known history of coronary artery disease status post multiple stents most recently in October of this year at [facility], severe ischemic cardiomyopathy status post AICD placement, hypertension, diabetes, dyslipidemia, chronic systolic heart failure, etc. sleep apnea, previous TIA, gastroesophageal reflux disease and depression. He follows with a community music therapist [facility]. He is currently here and being treated on the mental health unit for symptoms of suicidal ideation. He states yesterday he started feeling dizzy and his blood pressure is noted to be in the lower side. He then started feeling discomfort in his chest. The pain is in the midsternal region with radiation to the precordial region as well as sometimes and left shoulder. Troponins are found to be very mildly elevated which is persistent and chronic for him. He was given supplemental nitroglycerin on the mental health unit with no relief of his chest discomfort and was subsequently transferred to the cardiac unit for further evaluation. EKG reveals sinus mechanism with no acute changes. Evidence of pacemaker. Chest x-ray is negative for an acute cardiopulmonary process. Laboratory data reviewed. Current cardiac medications include Eliquis 5 mg twice a day, aspirin 81 mg daily, Plavix 75 mg daily, digoxin 125 g daily, lisinopril 2.5 mg daily, Toprol 25 mg daily, rosuvastatin 20 mg daily and Aldactone 25 mg daily. Most recent echocardiogram obtained earlier this month when he was admitted for similar type symptoms reveals severely impaired left ventricular systolic function with ejection fraction 20-25%, pacemaker lead seen in the right ventricular cavity, borderline concentric left ventricular hypertrophy. At the time of my exam: CONSTITUTIONAL: Denies fever. Denies chills. EYES: Denies blurred vision. Denies vision changes. Denies eye pain. EARS, NOSE, MOUTH & THROAT: Denies headache. Denies sore throat. Denies ear pain. CARDIOVASCULAR: Denies chest pain. Denies shortness of breath. Denies orthopnea. Denies PND. Denies palpitations. RESPIRATORY: Denies cough. GASTROINTESTINAL: Denies abdominal pain. Denies diarrhea. Denies constipation. Denies nausea. Denies vomiting. MUSCULOSKELETAL: Denies myalgias. INTEGUMENTARY: Denies pruitis. Denies rash. NEUROLOGIC: Denies numbness. Denies tingling. Denies weakness. PSYCHIATRIC: Denies anxiety. Denies depression. ENDOCRINE: Denies fatigue. Denies weight change. Denies polydipsia. Denies polyurina. GENITOURINARY: Denies burning, hematuria or urgency with micturation. HEMATOLOGIC: Denies history of anemia. Denies bleeding. Blood pressure monitor 56 heart rate 82 vomiting oxygen saturation GENERAL: This is a 42-year-old male in no apparent distress at the time of my examination. HEENT: Head is atraumatic, normocephalic. Pupils are equal, round. Sclerae anicteric. Conjunctivae are clear. Mucous membranes of the mouth are moist. Neck is supple. There is no jugular venous distention. No carotid bruit is heard. LUNGS: Clear to auscultation no wheezes, rales or rhonchi. No chest wall tenderness is noted on palpation or with deep breathing. HEART: Regular rate and rhythm without murmurs, rubs or gallops. S1 and S2 heard. ABDOMEN: Soft, nontender. Bowel sounds are heard. No organomegaly noted. EXTREMITIES: No evidence of peripheral edema and no calf tenderness noted. VASCULAR: Radial and dorsalis pedis pulses palpated, no evidence of clubbing. NEUROLOGIC: Patient is awake, alert and oriented x3. ASSESSMENT Chest pain, atypical. Recent blood clot in his leg, on anticoagulation since December per the patient. Mild troponin elevation not indicative of an acute coronary event. Patient has chronic elevated troponins may be secondary to systolic heart failure. History of coronary artery disease status post recent angioplasty in October 2017 [facility] Ischemic cardiomyopathy Chronic systolic heart failure, currently euvolemic Status post AICD placement Hypertension Dyslipidemia Suicidal ideation PLAN Discontinue heparin infusion. Add small dose of Imdur 30 mg daily. Hold aspirin while he is on eliquis and plavix. He continues to feel a very atypical chest discomfort relieved only by morphine. He is requesting he be transferred to [facility] for cardiac care to see his personal community music therapist. Stable from a cardiac perspective. Thank you kindly for this consultation. Nurse Practitioner note has been reviewed, I agree with a documented findings and plan of care. Patient was seen and examined. Past Medical History Past Medical History: Asthma, Coronary Artery Disease (CAD), Chest Pain / Angina , Heart Failure, CVA/TIA, Diabetes Mellitus, Deep Vein Thrombosis (DVT), GERD/ Reflux, Hyperlipidemia, Hypertension, Myocardial Infarction (DC), Osteoarthritis (OA), Pneumonia, Skin Disorder, Sleep Apnea/CPAP/BIPAP Additional Past Medical History / Comment(s): multiple vessel CAD, ischemic cardiomyopathy, diabetic neuropathy bilateral hands and feet, hypertensive cardiovascular disease, SHELIA with no device, chronic gastritis, degenerative disc disease, chronic back pain, depression with hx of suicide attempts, gastroparesis, psoriasis, UTI, migraines, TIA, PUD, hiatal hernia, L rotator cuff tear, bronchitis, pseudoaneurysm L groin post procedure. 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 Date of Last Stent Placement:: 10/2017 Type of Cardiac Device: Biventricular Pacemaker, AICD Device Placement Date:: 09/19/15 Past Psychological History: Anxiety, Depression, PTSD Additional Psychological History / Comment(s): Several suicide attempts with use of insulin. PTSD - in 2000 his 3mo old son in his arms (born 2 months premature). Pt states he is currently suicidal and wishes he were . He has a walker at home if needed. He drives.pt has 2 adult stepchildren at home with him most of the time. Spouse manages his medications. He is on a 1500 cc fluid restriction. Smoking Status: Never smoker Past Alcohol Use History: None Reported Additional Past Alcohol Use History / Comment(s): Past alcohol abuse - pt states he quit drinking over 8yrs ago. Past Drug Use History: None Reported Additional Drug Use History / Comment(s): Pt has smoked marijuana in the past - last smoked in 1999. - Past Family History Mother Family Medical History: Coronary Artery Disease (CAD), Myocardial Infarction (DC ) Additional Family Medical History / Comment(s): 7 DC and faulty heart valve. Pt does not know the age when mother had her DC's. Father History Unknown: Yes Additional Family Medical History / Comment(s): Does not know who father is. Brother(s) Family Medical History: Cancer, Congestive Heart Failure (CHF), Myocardial Infarction (DC) Additional Family Medical History / Comment(s): Parkinsons. Pt does not know at what age his brother had an DC. Patient's other brother has lung CA Patient has Family Medical History: No Reported History Additional Family Medical History / Comment(s): There is a strong family history for heart disease, hypertension, and diabetes. Medications and Allergies Home Medications Medication Instructions Recorded Confirmed Type Clopidogrel [Plavix] 75 mg PO DAILY@0800 12/03/17 04/24/18 History Metoprolol Succinate [Toprol XL] 25 mg PO DAILY@0800 12/03/17 04/24/18 History Rosuvastatin [Crestor] 20 mg PO HS@2100 12/30/17 04/24/18 History Apixaban [Eliquis] 5 mg PO BID@0800,1700 02/01/18 04/24/18 History Digoxin [Digitek] 125 mcg PO DAILY@0800 02/01/18 04/24/18 History Gabapentin [Neurontin] 400 mg PO TID@0600,1400,2100 02/01/18 04/24/18 History Lisinopril [Zestril] 2.5 mg PO DAILY@0800 02/01/18 04/24/18 History Spironolactone [Aldactone] 25 mg PO DAILY@0800 02/01/18 04/24/18 History Torsemide [Demadex] 40 mg PO BID 02/01/18 04/24/18 History Aspirin 81 mg PO DAILY chew 02/03/18 04/24/18 Rx Albuterol Inhaler [Ventolin Hfa 2 puff INHALATION RT-Q6H PRN 04/01/18 04/24/18 History Inhaler] Insulin Aspart [NovoLOG 6 unit SQ AC-TID 04/01/18 04/24/18 History (formulary)] Insulin Glargine [Lantus] 27 unit SQ HS 04/01/18 04/24/18 History Pantoprazole [Protonix] 40 mg PO DAILY 04/01/18 04/24/18 History Primidone [Mysoline] 100 mg PO HS 04/01/18 04/24/18 History Nitroglycerin Sl Tabs [Nitrostat] 0.4 mg SUBLINGUAL Q5M PRN tab 04/09/18 Rx ARIPiprazole [Abilify] 30 mg PO DAILY #30 tab 04/13/18 04/24/18 Rx DULoxetine HCL [Cymbalta] 60 mg PO DAILY #30 capsule.dr 04/13/18 04/24/18 Rx buPROPion XL [Wellbutrin XL] 150 mg PO DAILY #30 tab.er.24h 04/13/18 04/24/18 Rx hydrOXYzine PAMOATE [Vistaril] 50 mg PO TID PRN #45 capsule 04/13/18 04/24/18 Rx traMADol HCl [Ultram] 50 mg PO Q6H PRN tab 04/13/18 04/24/18 Rx Insulin Detemir [Levemir] 30 unit SQ HS 04/24/18 04/24/18 History Allergies Allergy/AdvReac Type Severity Reaction Status Date / Time erythromycin base Allergy Severe Rash/Hives Verified 04/20/18 14:59 [Erythromycin Base] cephalexin monohydrate Allergy Unknown Rash/Hives Verified 04/20/18 22:29 [From Keflex] codeine Allergy Unknown Unknown Verified 04/20/18 22:29 meclizine Allergy Unknown Unknown Verified 04/20/18 22:29 Penicillins Allergy Unknown Rash/Hives Verified 04/20/18 22:29 shellfish derived Allergy Unknown Anaphylaxis Verified 04/20/18 22:29 Fish Containing Products Allergy Anaphylaxis Verified 04/20/18 22:29 [Fish] Iodinated Contrast- Oral and Allergy Anaphylaxis Verified 04/20/18 22:29 IV Dye naproxen AdvReac Unknown Compromises Verified 04/20/18 22:29 Kidney Function atorvastatin calcium AdvReac Myalgia Verified 04/20/18 22:29 [From Lipitor] hydrocodone [From [place]] AdvReac Rapid Verified 04/20/18 22:29 Heart Rate Physical Exam Vitals: Vital Signs Temp Pulse Pulse Resp BP Pulse Ox 04/24/18 07:50 80 04/24/18 07:40 80 04/24/18 04:00 98.2 F 82 17 110/70 95 04/24/18 00:43 98.2 F 79 17 108/76 97 04/24/18 00:00 82 17 Intake and Output 04/23/18 04/24/18 04/24/18 22:59 06:59 14:59 Intake Total 190 Output Total 525 Balance -335 Intake: Intake, IV Titration 190 Amount Heparin Sod,Pork in 0.45% 70 NaCl 25,000 unit In 0.45 % NaCl 1 500ml.bag @ 20 mls/hr IV .Q24H [facility] Rx#: [id number] Sodium Chloride 0.9% 1, 120 000 ml @ 20 mls/hr IV . Q24H JA[facility] Rx#:[id number] Output: Urine 525 Other: Voiding Method Urinal Weight 107.4 kg Results 04/24/18 06:03 04/24/18 06:03 Cardiac Enzymes 04/24/18 Range/Units 06:03 Troponin I 0.037 H* (0.000-0.034) ng/mL Coagulation 04/24/18 04/24/18 Range/Units 01:32 06:03 APTT 24.1 27.8 (22.0-30.0) sec CBC 04/24/18 Range/Units 06:03 WBC 4.9 (3.8-10.6) k/uL RBC 4.31 (4.30-5.90) m/uL Hgb 11.7 L (13.0-17.5) gm/dL Hct 35.5 L (39.0-53.0) % Plt Count 161 (150-450) k/uL Comprehensive Metabolic Panel 04/24/18 Range/Units 06:03 Sodium 134 L (137-145) mmol/L Potassium 4.8 (3.5-5.1) mmol/L Chloride 100 (98-107) mmol/L Carbon Dioxide 25 (22-30) mmol/L BUN 53 H (9-20) mg/dL Creatinine 1.04 (0.66-1.25) mg/dL Glucose 191 H (74-99) mg/dL Calcium 8.8 (8.4-10.2) mg/dL Current Medications Generic Name Dose Route Start Last Admin Trade Name Freq PRN Reason Stop Dose Admin Albuterol Sulfate 2.5 mg 04/24/18 05:35 04/24/18 07:36 Ventolin Nebulized INHALATION 2.5 mg RT-Q6H PRN Administration Shortness Of Breath Aspirin 81 mg 04/24/18 09:[address] [facility] Atorvastatin Calcium 40 mg 04/24/18 21:00 Lipitor PO HS@2100 [facility] Bupropion HCl 150 mg 04/24/18 09:[address] PO DAILY [facility] Clopidogrel Bisulfate 75 mg 04/24/18 08:00 Plavix PO DAILY@0800 [facility] Digoxin 125 mcg 04/24/18 08:00 Lanoxin PO DAILY@0800 [facility] Diphenhydramine HCl 50 mg 04/24/18 08:06 Benadryl PO TID PRN Itching Duloxetine HCl 60 mg 04/24/18 09:[address] [facility] Gabapentin 400 mg 04/24/18 06:00 04/24/18 06:56 Neurontin PO 400 mg TID@0600,1400,2100 [facility] Administration Sodium Chloride 1,000 mls @ 20 mls/hr 04/24/18 01:00 04/24/18 05:58 Saline 0.9% IV 20 mls/hr .Q24H JAKE Administration Heparin Sodium/Sodium Chloride 500 mls @ 20 mls/hr 04/24/18 02:00 04/24/18 05 :39 25,000 unit/ Sodium Chloride IV 9.31 unit/kg/hr .Q24H JAKE 19.99 mls/hr Titration Protocol Insulin Aspart 0 unit 04/24/18 07:30 04/24/18 06:56 Novolog SQ [address] [facility] Administration Protocol Insulin Aspart 6 unit 04/24/18 07:30 04/24/18 07:18 Novolog 0.06 unit/kg (6 unit) Not Given SQ AC-TID [facility] Protocol Lisinopril 2.5 mg 04/24/18 08:00 Zestril PO DAILY@0800 [facility] Metoprolol Succinate 25 mg 04/24/18 08:00 Toprol Xl PO DAILY@0800 [facility] Morphine Sulfate 4 mg 04/24/18 00:56 04/24/18 05:18 Morphine Sulfate (Inj) IV 4 mg Q5M PRN Administration Chest Pain Nitroglycerin 0.4 mg 04/24/18 00:56 Nitrostat SUBLINGUAL Q5M PRN Chest Pain Pantoprazole Sodium 40 mg 04/24/18 07:30 04/24/18 06:56 Protonix PO 40 mg AC-BRKFST JAKE Administration Primidone 100 mg 04/24/18 21:00 Mysoline PO HS [facility] Spironolactone 25 mg 04/24/18 08:00 Aldactone PO DAILY@0800 [facility] Torsemide 40 mg 04/24/18 09:[address] [facility] Intake and Output 04/23/18 04/24/18 04/24/18 22:59 06:59 14:59 Intake Total 190 Output Total 525 Balance -335 Intake: Intake, IV Titration 190 Amount Heparin Sod,Pork in 0.45% 70 NaCl 25,000 unit In 0.45 % NaCl 1 500ml.bag @ 20 mls/hr IV .Q24H [facility] Rx#: [id number] Sodium Chloride 0.9% 1, 120 000 ml @ 20 mls/hr IV . Q24H [facility] Rx#:[id number] Output: Urine 525 Other: Voiding Method Urinal Weight 107.4 kg 04/24/18 06:03 04/24/18 06:03
--- NOTE | 2018-04-24 14:01 | P.HPIM ---
History of Present Illness 80-year-old gentleman with known history of coronary disease multiple stents in the past recent one being in October has ischemic cardiomyopathy with an AICD was transferred from psychiatric floor after he started complaining of chest pain and found to have elevated troponin minimal elevation of 0.03 which is normal for him and secondary to congestive heart failure. Yesterday patient was comparing of dizziness or on the psych floor because of which I held the dose of Demadex and lisinopril. Patient has mental condition and chest x-ray disease will be resumed patient is still complaining of some lightheadedness. Patient blood pressures fairly okay testing his heart failure. Patient was evaluated by cardiology patient chest pain is pressure-like severe as per the patient only relieved by morphine as per the patient. Patient is well-known to cardiology service evaluated the patient and they do not believe it's a cardiac chest pain and patient is stable from their perspective minimal elevation of troponin secondary to CHF. Patient had ejection fraction of 20-25% patient will be discharged back to psychiatric floor. Patient was given supplemental nitroglycerin which did not relieve his chest pain. Review of Systems REVIEW OF SYSTEMS: CONSTITUTIONAL: No fever, no malaise, no fatigue. HEENT: No recent visual problems or hearing problems. Denied any sore throat. CARDIOVASCULAR: No orthopnea, PND, no palpitations, no syncope. PULMONARY: No shortness of breath, no cough, no hemoptysis. GASTROINTESTINAL: No diarrhea, no nausea, no vomiting, no abdominal pain. Normoactive bowel sounds. NEUROLOGICAL: No headaches, no weakness, no numbness. HEMATOLOGICAL: Denies any bleeding or petechiae. GENITOURINARY: Denies any burning micturition, frequency, or urgency. MUSCULOSKELETAL/RHEUMATOLOGICAL: Denies any joint pain, swelling, or any muscle pain. ENDOCRINE: Denies any polyuria or polydipsia. The rest of the 14-point review of systems is negative. Past Medical History Past Medical History: Asthma, Coronary Artery Disease (CAD), Chest Pain / Angina , Heart Failure, CVA/TIA, Diabetes Mellitus, Deep Vein Thrombosis (DVT), GERD/ Reflux, Hyperlipidemia, Hypertension, Myocardial Infarction (NC), Osteoarthritis (OA), Pneumonia, Skin Disorder, Sleep Apnea/CPAP/BIPAP Additional Past Medical History / Comment(s): multiple vessel CAD, ischemic cardiomyopathy, diabetic neuropathy bilateral hands and feet, hypertensive cardiovascular disease, SHELIA with no device, chronic gastritis, degenerative disc disease, chronic back pain, depression with hx of suicide attempts, gastroparesis, psoriasis, UTI, migraines, TIA, PUD, hiatal hernia, L rotator cuff tear, bronchitis, pseudoaneurysm L groin post procedure. Last Myocardial Infarction Date:: october 2017 History of Any Multi-Drug Resistant Organisms: MRSA Date of last positivie culture/infection: 11/05/2017 (Culture done at [facility]) MDRO Source:: legs Past Surgical History: AICD, Appendectomy, Cholecystectomy, Heart Catheterization With Stent, Hernia Repair Additional Past Surgical History / Comment(s): Pt has had multiple cardiac procedures- caths/stents/PTCA, last stent placed at [facility] -October2017, S[facility]AN[place]H, R inguinal hernia repair, umbilical hernia repair, right orchiectomy due to necrosis, right hand surgery r/t injury, colonoscopy, cystoscopy (scraped bladder parrish), stents 10/2017, Past Anesthesia/Blood Transfusion Reactions: No Reported Reaction Additional Past Anesthesia/Blood Transfusion Reaction / Comment(s): . Date of Last Stent Placement:: 10/2017 Type of Cardiac Device: Biventricular Pacemaker, AICD Device Placement Date:: 09/19/15 Past Psychological History: Anxiety, Depression, PTSD Additional Psychological History / Comment(s): Several suicide attempts with use of insulin. PTSD - in 2000 his 3mo old son in his arms (born 2 months premature). Pt states he is currently suicidal and wishes he were . He has a walker at home if needed. He drives.pt has 2 adult stepchildren at home with him most of the time. Spouse manages his medications. He is on a 1500 cc fluid restriction. Smoking Status: Never smoker Past Alcohol Use History: None Reported Additional Past Alcohol Use History / Comment(s): Past alcohol abuse - pt states he quit drinking over 8yrs ago. Past Drug Use History: None Reported Additional Drug Use History / Comment(s): Pt has smoked marijuana in the past - last smoked in 1999. - Past Family History Mother Family Medical History: Coronary Artery Disease (CAD), Myocardial Infarction (NC ) Additional Family Medical History / Comment(s): 7 NC and faulty heart valve. Pt does not know the age when mother had her NC's. Father History Unknown: Yes Additional Family Medical History / Comment(s): Does not know who father is. Brother(s) Family Medical History: Cancer, Congestive Heart Failure (CHF), Myocardial Infarction (NC) Additional Family Medical History / Comment(s): Parkinsons. Pt does not know at what age his brother had an NC. Patient's other brother has lung CA Patient has Family Medical History: No Reported History Additional Family Medical History / Comment(s): There is a strong family history for heart disease, hypertension, and diabetes. Medications and Allergies Home Medications Medication Instructions Recorded Confirmed Type Clopidogrel [Plavix] 75 mg PO DAILY@0800 12/03/17 04/24/18 History Metoprolol Succinate [Toprol XL] 25 mg PO DAILY@0800 12/03/17 04/24/18 History Rosuvastatin [Crestor] 20 mg PO HS@2100 12/30/17 04/24/18 History Apixaban [Eliquis] 5 mg PO BID@0800,1700 02/01/18 04/24/18 History Digoxin [Digitek] 125 mcg PO DAILY@0800 02/01/18 04/24/18 History Gabapentin [Neurontin] 400 mg PO TID@0600,1400,2100 02/01/18 04/24/18 History Spironolactone [Aldactone] 25 mg PO DAILY@0800 02/01/18 04/24/18 History Torsemide [Demadex] 40 mg PO BID 02/01/18 04/24/18 History Aspirin 81 mg PO DAILY chew 02/03/18 04/24/18 Rx Albuterol Inhaler [Ventolin Hfa 2 puff INHALATION RT-Q6H PRN 04/01/18 04/24/18 History Inhaler] Insulin Aspart [NovoLOG 6 unit SQ AC-TID 04/01/18 04/24/18 History (formulary)] Insulin Glargine [Lantus] 27 unit SQ HS 04/01/18 04/24/18 History Pantoprazole [Protonix] 40 mg PO DAILY 04/01/18 04/24/18 History Primidone [Mysoline] 100 mg PO HS 04/01/18 04/24/18 History Nitroglycerin Sl Tabs [Nitrostat] 0.4 mg SUBLINGUAL Q5M PRN tab 04/09/18 Rx ARIPiprazole [Abilify] 30 mg PO DAILY #30 tab 04/13/18 04/24/18 Rx DULoxetine HCL [Cymbalta] 60 mg PO DAILY #30 capsule. 04/13/18 04/24/18 Rx buPROPion XL [Wellbutrin XL] 150 mg PO DAILY #30 tab.er.24h 04/13/18 04/24/18 Rx hydrOXYzine PAMOATE [Vistaril] 50 mg PO TID PRN #45 capsule 04/13/18 04/24/18 Rx traMADol HCl [Ultram] 50 mg PO Q6H PRN tab 04/13/18 04/24/18 Rx Insulin Detemir [Levemir] 30 unit SQ HS 04/24/18 04/24/18 History Isosorbide Mononitrate ER [Imdur] 30 mg PO DAILY tab.er.24h 04/24/18 Rx Allergies Allergy/AdvReac Type Severity Reaction Status Date / Time erythromycin base Allergy Severe Rash/Hives Verified 04/20/18 14:59 [Erythromycin Base] cephalexin monohydrate Allergy Unknown Rash/Hives Verified 04/20/18 22:29 [From Keflex] codeine Allergy Unknown Unknown Verified 04/20/18 22:29 meclizine Allergy Unknown Unknown Verified 04/20/18 22:29 Penicillins Allergy Unknown Rash/Hives Verified 04/20/18 22:29 shellfish derived Allergy Unknown Anaphylaxis Verified 04/20/18 22:29 Fish Containing Products Allergy Anaphylaxis Verified 04/20/18 22:29 [Fish] Iodinated Contrast- Oral and Allergy Anaphylaxis Verified 04/20/18 22:29 IV Dye naproxen AdvReac Unknown Compromises Verified 04/20/18 22:29 Kidney Function atorvastatin calcium AdvReac Myalgia Verified 04/20/18 22:29 [From Lipitor] hydrocodone [From [place]] AdvReac Rapid Verified 04/20/18 22:29 Heart Rate Physical Exam Vitals: Vital Signs Temp Pulse Pulse Resp BP Pulse Ox 04/24/18 11:38 82 04/24/18 11:37 82 18 107/56 95 04/24/18 08:00 98.1 F 81 16 118/71 93 L 04/24/18 07:50 80 04/24/18 07:40 80 04/24/18 04:00 98.2 F 82 17 110/70 95 04/24/18 00:43 98.2 F 79 17 108/76 97 04/24/18 00:00 82 17 Intake and Output 04/23/18 04/24/18 04/24/18 22:59 06:59 14:59 Intake Total 190 Output Total 525 Balance -335 Intake: Intake, IV Titration 190 Amount Heparin Sod,Pork in 0.45% 70 NaCl 25,000 unit In 0.45 % NaCl 1 500ml.bag @ 20 mls/hr IV .Q24H JAKE Rx#: [id number] Sodium Chloride 0.9% 1, 120 000 ml @ 20 mls/hr IV . Q24H JAKE Rx#:[id number] Output: Urine 525 Other: Voiding Method Urinal Weight 107.4 kg PHYSICAL EXAMINATION: GENERAL: The patient is alert and oriented x3, not in any acute distress. Well developed, well nourished. HEENT: Pupils are round and equally reacting to light. EOMI. No scleral icterus. No conjunctival pallor. Normocephalic, atraumatic. No pharyngeal erythema. No thyromegaly. CARDIOVASCULAR: S1 and S2 present. No murmurs, rubs, or gallops. PULMONARY: Chest is clear to auscultation, no wheezing or crackles. ABDOMEN: Soft, nontender, nondistended, normoactive bowel sounds. No palpable organomegaly. MUSCULOSKELETAL: No joint swelling or deformity. EXTREMITIES: No cyanosis, clubbing, or pedal edema. NEUROLOGICAL: Gross neurological examination did not reveal any focal deficits. SKIN: No rashes. Results CBC & Chem 7: 04/24/18 06:03 04/24/18 06:03 Labs: Abnormal Lab Results - Last 24 Hours (Table) 04/24/18 04/24/18 04/24/18 Range/Units 06:01 06:03 06:03 Hgb 11.7 L (13.0-17.5) gm/dL Hct 35.5 L (39.0-53.0) % RDW 16.0 H (11.5-15.5) % Sodium (137-145) mmol/L BUN (9-20) mg/dL Glucose (74-99) mg/dL POC Glucose (mg/dL) 192 H (75-99) mg/dL Troponin I 0.037 H* (0.000-0.034) ng/mL 04/24/18 04/24/18 Range/Units 06:03 11:43 Hgb (13.0-17.5) gm/dL Hct (39.0-53.0) % RDW (11.5-15.5) % Sodium 134 L (137-145) mmol/L BUN 53 H (9-20) mg/dL Glucose 191 H (74-99) mg/dL POC Glucose (mg/dL) 221 H (75-99) mg/dL Troponin I (0.000-0.034) ng/mL Thrombosis Risk Factor Assmnt - Choose All That Apply Each Factor Represents 1 point: Age 41-60 years Each Risk Factor Represents 3 Points: History of DVT/PE Other congenital or acquired thrombophilia - If yes, enter type in comment: No Thrombosis Risk Factor Assessment Total Risk Factor Score: 4 Thrombosis Risk Factor Assessment Level: Moderate Risk Assessment and Plan Plan: Chest pain, atypical., Troponin elevation secondary to congestive heart failure and chronic elevation Recent DVT in his leg, on anticoagulation since December per the patient. The posterior be done with anticoagulation but the will continue until his discharge from psychiatric floor Dizziness: Hold off unless approved but considering his extensive heart failure history will continue with the the diuretic therapy chest x-ray showed mild pulmonary congestion Mild troponin elevation not indicative of an acute coronary event. Patient has chronic elevated troponins History of coronary artery disease status post recent angioplasty in October 2017 [facility] Ischemic cardiomyopathy chronic systolic dysfunction with EF of 20-25% patient has an AICD Chronic systolic heart failure, currently euvolemic Type 2 diabetes mellitus: Resume his home regimen, titrate as necessary Hypertension Dyslipidemia Suicidal ideation: Patient will be discharged back to psychiatric floor presently doesn't have any suicidal ideations
--- NOTE | 2018-04-24 14:02 | P.DS ---
Providers Date of admission: 04/24/18 00:42 Attending physician: Safia Clay Consults: 04/24/18 00:56 Consult Physician Urgent Consulting Provider: [facility] Consult Reason/Comments: Elevated troponins, chest pain. Do you want consulting provider notified?: Yes, Notify in am 04/24/18 01:07 Consult Physician Routine Consulting Provider: Abdiel Louis Consult Reason/Comments: Suicidal thoughts Do you want consulting provider notified?: Yes, Notify in am Primary care physician: [facility] Course: Please refer to my HPI Plan - Discharge Summary New Discharge Prescriptions: New Isosorbide Mononitrate ER [Imdur] 30 mg PO DAILY tab.er.24h Continue Metoprolol Succinate [Toprol XL] 25 mg PO DAILY@0800 Clopidogrel [Plavix] 75 mg PO DAILY@0800 Rosuvastatin [Crestor] 20 mg PO HS@2100 Apixaban [Eliquis] 5 mg PO BID@0800,1700 Digoxin [Digitek] 125 mcg PO DAILY@0800 Gabapentin [Neurontin] 400 mg PO TID@0600,1400,2100 Spironolactone [Aldactone] 25 mg PO DAILY@0800 Torsemide [Demadex] 40 mg PO BID Aspirin 81 mg PO DAILY chew Albuterol Inhaler [Ventolin Hfa Inhaler] 2 puff INHALATION RT-Q6H PRN PRN Reason: Shortness Of Breath Primidone [Mysoline] 100 mg PO HS Pantoprazole [Protonix] 40 mg PO DAILY Nitroglycerin Sl Tabs [Nitrostat] 0.4 mg SUBLINGUAL Q5M PRN tab PRN Reason: Chest Pain ARIPiprazole [Abilify] 30 mg PO DAILY #30 tab hydrOXYzine PAMOATE [Vistaril] 50 mg PO TID PRN #45 capsule PRN Reason: Anxiety traMADol HCl [Ultram] 50 mg PO Q6H PRN tab PRN Reason: chest pain buPROPion XL [Wellbutrin XL] 150 mg PO DAILY #30 tab.er.24h DULoxetine HCL [Cymbalta] 60 mg PO DAILY #30 capsule.dr Changed Insulin Aspart [NovoLOG (formulary)] 7 unit SQ AC-TID #0 Insulin Detemir [Levemir] 35 unit SQ HS #0 Discontinued Lisinopril [Zestril] 2.5 mg PO DAILY@0800 Insulin Glargine [Lantus] 27 unit SQ HS Discharge Medication List Clopidogrel [Plavix] 75 mg PO DAILY@0812/03/17 [History] Metoprolol Succinate [Toprol XL] 25 mg PO DAILY@0800 12/03/17 [History] Rosuvastatin [Crestor] 20 mg PO HS@2100 12/30/17 [History] Apixaban [Eliquis] 5 mg PO BID@0800,1700 02/01/18 [History] Digoxin [Digitek] 125 mcg PO DAILY@0802/01/18 [History] Gabapentin [Neurontin] 400 mg PO TID@0600,1400,2100 02/01/18 [History] Spironolactone [Aldactone] 25 mg PO DAILY@0800 02/01/18 [History] Torsemide [Demadex] 40 mg PO BID 02/01/18 [History] Aspirin 81 mg PO DAILY chew 02/03/18 [Rx] Albuterol Inhaler [Ventolin Hfa Inhaler] 2 puff INHALATION RT-Q6H PRN 04/01/18 [ History] Pantoprazole [Protonix] 40 mg PO DAILY 04/01/18 [History] Primidone [Mysoline] 100 mg PO HS 04/01/18 [History] Nitroglycerin Sl Tabs [Nitrostat] 0.4 mg SUBLINGUAL Q5M PRN tab 04/09/18 [Rx] ARIPiprazole [Abilify] 30 mg PO DAILY #30 tab 04/13/18 [Rx] DULoxetine HCL [Cymbalta] 60 mg PO DAILY #30 capsule.dr 04/13/18 [Rx] buPROPion XL [Wellbutrin XL] 150 mg PO DAILY #30 tab.er.24h 04/13/18 [Rx] hydrOXYzine PAMOATE [Vistaril] 50 mg PO TID PRN #45 capsule 04/13/18 [Rx] traMADol HCl [Ultram] 50 mg PO Q6H PRN tab 04/13/18 [Rx] Insulin Aspart [NovoLOG (formulary)] 7 unit SQ AC-TID #0 04/24/18 [Rx] Insulin Detemir [Levemir] 35 unit SQ HS #0 04/24/18 [Rx] Isosorbide Mononitrate ER [Imdur] 30 mg PO DAILY tab.er.24h 04/24/18 [Rx] Discharge Disposition: TRANSFER TO PSYCH HOSP/UNIT
[2018-04-24 14:34] LABS: Hemoglobin A1C 11.6 % (4.0-6.0)
[2018-04-24 17:09] LABS: Glucose,Whole Blood 134 mg/dL (75-99)
[2018-04-24] MEDS: PRIMIDONE 50 MG TAB PO SCH (20:30)
[2018-04-24 20:40] LABS: Glucose,Whole Blood 188 mg/dL (75-99)
[2018-04-24] MEDS ORDERED: ATORVASTATIN 40 MG TAB PO SCH (21:00)
[2018-04-25] MEDS: SODIUM CHLORIDE 0.9% 1,000 ML IV SCH (00:36)
[2018-04-25 05:17] LABS: Glucose,Whole Blood 244 mg/dL (75-99)
[2018-04-25 06:52] LABS: Basophils % (A) 0 %; Eosinophils # (A) 0.3 k/uL (0-0.7); Eosinophils % (A) 5 %; HCT 37.5 % (39.0-53.0); HGB 12.3 gm/dL (13.0-17.5); Hypochromasia Slight; Lymphocytes % (A) 15 %; MCH 26.7 pg (25.0-35.0); MCHC 32.7 g/dL (31.0-37.0); MCV 81.8 fL (80.0-100.0); Mean Platelet Volume 6.6; Monocytes # (A) 0.3 k/uL (0-1.0); Monocytes % (A) 5 %; Neutrophils # (A) 4.6 k/uL (1.3-7.7); Neutrophils % (A) 73 %; Platelet Count 212 k/uL (150-450); RBC 4.59 m/uL (4.30-5.90); WBC 6.3 k/uL (3.8-10.6)
[2018-04-25 06:57] LABS: Calcium 9.1 mg/dL (8.4-10.2); Potassium 5.1 mmol/L (3.5-5.1)
[2018-04-25] MEDS: PANTOPRAZOLE 40 MG TABLET PO SCH (06:59)
[2018-04-25] MEDS: GABAPENTIN 400 MG CAP PO SCH ×3 (06:59→21:23)
[2018-04-25] MEDS: INSULIN ASPART 100 UNIT/ML 1 ML 10 ML VIAL SQ SCH ×7 (07:00→21:30)
[2018-04-25] MEDS: diphenhydrAMINE 50 MG CAP PO PRN ×2 (07:34→19:12)
[2018-04-25] MEDS: DULoxetine HCL 60 MG CAPSULE.DR PO SCH (08:51)
[2018-04-25] MEDS: CLOPIDOGREL 75 MG TAB PO SCH (08:51)
[2018-04-25] MEDS: DIGOXIN 125 MCG TAB PO SCH (08:51)
[2018-04-25] MEDS: SPIRONOLACTONE 25 MG TAB PO SCH (08:51)
[2018-04-25] MEDS: buPROPion XL 150 MG TAB.ER.24H PO SCH (08:51)
[2018-04-25] MEDS: METOPROLOL SUCCINATE (ER) 25 MG TAB.ER.24H PO SCH (08:52)
[2018-04-25] MEDS: TORSEMIDE 20 MG TAB PO SCH (08:52)
[2018-04-25] MEDS: MORPHINE SULFATE 4 MG/ML SYRINGE IV PRN ×2 (10:22→14:21)
[2018-04-25] MEDS: ISOSORBIDE MONONITRATE ER 30 MG TAB.ER.24H PO SCH (10:56)
[2018-04-25 12:22] LABS: Glucose,Whole Blood 160 mg/dL (75-99)
--- NOTE | 2018-04-25 14:06 | P.CN ---
Psychiatric Consult - . Consult date: 04/25/18 Consult:: 42-year-old male who was discharged from this mental health unit on 04/13/18 readmitted on 04/20/18 due to suicidal ideation and auditory hallucinations. He was transferred to ICU for hypotension and dizziness. He is medically stable currently however he continues to voice suicidal ideations with no active plan or intent. He continues to complain about hearing his sons voice telling him to join him. He currently reports feeling hopeless, sad, helpless, worthless and voices lot of family and financial stressors. He also feels frustrated about his own physical health due to multiple medical problems. He says he feels safe being in the hospital but does not feel safe going back to his home. He denies current paranoid ideations. Please refer to his detail psychiatric evaluation dated 04/21/18. Assessment and Plan Major depressive disorder recurrent severe with psychosis. Patient needs inpatient treatment for stabilization and monitoring . Continue his current medications wellbutrin, cymbalta and invega sustena injection due April 26, 2018. Patient does not need 1: 1 Sitter at this time as he feels safe being in the hospital and wants to get better and does not want to do anything harmful to himself currently. Ling for the consult. Contact psychiatry for any questions 04/25/18 13:56
[2018-04-25 17:06] LABS: Glucose,Whole Blood 152 mg/dL (75-99)
[2018-04-25] MEDS: APIXABAN 5 MG TAB PO SCH (17:13)
[2018-04-25] MEDS ORDERED: APIXABAN 5 MG TAB PO ONE (18:00)
--- NOTE | 2018-04-25 18:24 | P.PN ---
Subjective 80-year-old gentleman with known history of coronary disease multiple stents in the past recent one being in October has ischemic cardiomyopathy with an AICD was transferred from psychiatric floor after he started complaining of chest pain and found to have elevated troponin minimal elevation of 0.03 which is normal for him and secondary to congestive heart failure. Yesterday patient was comparing of dizziness or on the psych floor because of which I held the dose of Demadex and lisinopril. Patient has mental condition and chest x-ray disease will be resumed patient is still complaining of some lightheadedness. Patient blood pressures fairly okay testing his heart failure. Patient was evaluated by cardiology patient chest pain is pressure-like severe as per the patient only relieved by morphine as per the patient. Patient is well-known to cardiology service evaluated the patient and they do not believe it's a cardiac chest pain and patient is stable from their perspective minimal elevation of troponin secondary to CHF. Patient had ejection fraction of 20-25% patient will be discharged back to psychiatric floor. Patient was given supplemental nitroglycerin which did not relieve his chest pain. 04/24/2018 Patient's dizziness improved but his renal failure has worsened, hold off on diuretic therapy and lisinopril temporarily will reassess him tomorrow and recheck the kidney function tomorrow Constitutional: Denied any fatigue denied any fever. Cardio vascular: denied any chest pain, palpitations Gastrointestinal denied any nausea vomiting Pulmonary: Denied any shortness of breath cough Neurologic denied any new focal deficits All inpatient medications were reviewed and appropriate changes in these medications as dictated in the interval history and assessment and plan. Objective - Vital Signs Vital signs: Vital Signs Temp 97.0 F L 04/25/18 14:35 Pulse 77 04/25/18 14:35 Resp 16 04/25/18 14:35 BP 103/59 04/25/18 14:35 Pulse Ox 94 L 04/25/18 14:35 Intake & Output 04/24/18 04/25/18 04/25/18 18:59 06:59 18:59 Intake Total 900 Output Total 600 850 Balance -600 50 Weight 107.3 kg Intake: Oral 900 Output: Urine 600 850 Other: Voiding Method Urinal # Voids 3 - Exam PHYSICAL EXAMINATION: GENERAL: The patient is alert and oriented x3, not in any acute distress. Well developed, well nourished. HEENT: Pupils are round and equally reacting to light. EOMI. No scleral icterus. No conjunctival pallor. Normocephalic, atraumatic. No pharyngeal erythema. No thyromegaly. CARDIOVASCULAR: S1 and S2 present. No murmurs, rubs, or gallops. PULMONARY: Chest is clear to auscultation, no wheezing or crackles. ABDOMEN: Soft, nontender, nondistended, normoactive bowel sounds. No palpable organomegaly. MUSCULOSKELETAL: No joint swelling or deformity. EXTREMITIES: No cyanosis, clubbing, or pedal edema. NEUROLOGICAL: Gross neurological examination did not reveal any focal deficits. SKIN: No rashes. - Labs CBC & Chem 7: 04/25/18 05:33 04/25/18 05:33 Labs: Abnormal Lab Results - Last 24 Hours (Table) 04/24/18 04/25/18 04/25/18 Range/Units 20:26 05:16 05:33 Hgb 12.3 L (13.0-17.5) gm/dL Hct 37.5 L (39.0-53.0) % RDW 16.0 H (11.5-15.5) % Sodium (137-145) mmol/L Chloride (98-107) mmol/L BUN (9-20) mg/dL Creatinine (0.66-1.25) mg/dL Glucose (74-99) mg/dL POC Glucose (mg/dL) 188 H 244 H (75-99) mg/dL 04/25/18 04/25/18 04/25/18 Range/Units 05:33 12:19 16:59 Hgb (13.0-17.5) gm/dL Hct (39.0-53.0) % RDW (11.5-15.5) % Sodium 134 L (137-145) mmol/L Chloride 96 L (98-107) mmol/L BUN 55 H (9-20) mg/dL Creatinine 1.33 H (0.66-1.25) mg/dL Glucose 249 H (74-99) mg/dL POC Glucose (mg/dL) 160 H 152 H (75-99) mg/dL Assessment and Plan Plan: Chest pain, atypical., Troponin elevation secondary to congestive heart failure and chronic elevation -Acute renal failure secondary to excessive diuretic therapy which will be held and lisinopril will be held Recent DVT in his leg, on anticoagulation since December per the patient. The posterior be done with anticoagulation but the will continue until his discharge from psychiatric floor Dizziness: Mia hypovolemia Mild troponin elevation not indicative of an acute coronary event. Patient has chronic elevated troponins History of coronary artery disease status post recent angioplasty in October 2017 [facility] Ischemic cardiomyopathy chronic systolic dysfunction with EF of 20-25% patient has an AICD Chronic systolic heart failure, currently hypovolemic Type 2 diabetes mellitus: Resume his home regimen, titrate as necessary Hypertension Dyslipidemia Suicidal ideation: Patient will be discharged back to psychiatric floor presently doesn't have any suicidal ideations
[2018-04-25] MEDS ORDERED: ROSUVASTATIN 20 MG PO SCH (21:00)
[2018-04-25] MEDS: PRIMIDONE 50 MG TAB PO SCH (21:23)
[2018-04-25 21:31] LABS: Glucose,Whole Blood 243 mg/dL (75-99)
[2018-04-25] MEDS ORDERED: INSULIN DETEMIR 100 UNIT/ML 10 ML VIAL SQ SCH (23:45)
[2018-04-26] MEDS: GABAPENTIN 400 MG CAP PO SCH ×2 (06:04→12:53)
[2018-04-26 07:17] LABS: Glucose,Whole Blood 223 mg/dL (75-99)
[2018-04-26] MEDS: DIGOXIN 125 MCG TAB PO SCH (08:38)
[2018-04-26] MEDS: buPROPion XL 150 MG TAB.ER.24H PO SCH (08:38)
[2018-04-26] MEDS: ISOSORBIDE MONONITRATE ER 30 MG TAB.ER.24H PO SCH (08:38)
[2018-04-26] MEDS: APIXABAN 5 MG TAB PO SCH ×2 (08:38→17:21)
[2018-04-26] MEDS: INSULIN ASPART 100 UNIT/ML 1 ML 10 ML VIAL SQ SCH ×6 (08:38→17:22)
[2018-04-26] MEDS: DULoxetine HCL 60 MG CAPSULE.DR PO SCH (08:38)
[2018-04-26] MEDS: CLOPIDOGREL 75 MG TAB PO SCH (08:38)
[2018-04-26] MEDS: METOPROLOL SUCCINATE (ER) 25 MG TAB.ER.24H PO SCH (08:38)
[2018-04-26] MEDS: PANTOPRAZOLE 40 MG TABLET PO SCH (08:38)
[2018-04-26 08:48] VITALS: RESP 16
[2018-04-26 11:39] LABS: Anion Gap 9 mmol/L; Blood Urea Nitrogen 55 mg/dL (9-20); Calcium 9.1 mg/dL (8.4-10.2); Carbon Dioxide 26 mmol/L (22-30); Chloride 100 mmol/L (98-107); Glucose 166 mg/dL (74-99); Sodium 135 mmol/L (137-145)
[2018-04-26 12:29] LABS: Glucose,Whole Blood 159 mg/dL (75-99)
[2018-04-26 14:11] VITALS: BP 115/68; PULSE 73; TEMP 97.1
--- NOTE | 2018-04-26 14:11 | P.DS ---
Providers Date of admission: 04/24/18 00:42 Attending physician: Safia Clay Consults: 04/24/18 00:56 Consult Physician Urgent Consulting Provider: [facility] Consult Reason/Comments: Elevated troponins, chest pain. Do you want consulting provider notified?: Yes, Notify in am 04/24/18 01:07 Consult Physician Routine Consulting Provider: Abdiel Louis Consult Reason/Comments: Suicidal thoughts Do you want consulting provider notified?: Yes, Notify in am Primary care physician: [facility] Course: 42-year-old gentleman with known history of coronary disease multiple stents in the past recent one being in October has ischemic cardiomyopathy with an AICD was transferred from psychiatric floor after he started complaining of chest pain and found to have elevated troponin minimal elevation of 0.03 which is normal for him and secondary to congestive heart failure. Yesterday patient was comparing of dizziness or on the psych floor because of which I held the dose of Demadex and lisinopril. Patient has mental condition and chest x-ray disease will be resumed patient is still complaining of some lightheadedness. Patient blood pressures fairly okay testing his heart failure. Patient was evaluated by cardiology patient chest pain is pressure-like severe as per the patient only relieved by morphine as per the patient. Patient is well-known to cardiology service evaluated the patient and they do not believe it's a cardiac chest pain and patient is stable from their perspective minimal elevation of troponin secondary to CHF. Patient had ejection fraction of 20-25% patient will be discharged back to psychiatric floor. Patient was given supplemental nitroglycerin which did not relieve his chest pain. 04/25/2018 Patient's dizziness improved but his renal failure has worsened, hold off on diuretic therapy and lisinopril temporarily will reassess him tomorrow and recheck the kidney function tomorrow 04/26/2018 Patient is feeling better, patient will be resumed on diuretic therapy and followed by Aldactone and lisinopril later. Patient if possible will be discharged to The floor will obtain a chest x-ray make sure patient doesn't have increasing pulmonary edema PHYSICAL EXAMINATION: GENERAL: The patient is alert and oriented x3, not in any acute distress. Well developed, well nourished. HEENT: Pupils are round and equally reacting to light. EOMI. No scleral icterus. No conjunctival pallor. Normocephalic, atraumatic. No pharyngeal erythema. No thyromegaly. CARDIOVASCULAR: S1 and S2 present. No murmurs, rubs, or gallops. PULMONARY: Chest is clear to auscultation, no wheezing or crackles. ABDOMEN: Soft, nontender, nondistended, normoactive bowel sounds. No palpable organomegaly. MUSCULOSKELETAL: No joint swelling or deformity. EXTREMITIES: No cyanosis, clubbing, or pedal edema. NEUROLOGICAL: Gross neurological examination did not reveal any focal deficits. SKIN: No rashes. Assessment and Plan Plan: Chest pain, atypical., Troponin elevation secondary to congestive heart failure and chronic elevation -Acute renal failure secondary to excessive diuretic therapy for now and patient will be resumed on diuretics lisinopril and Aldactone can be resumed later depending on his kidney function Recent DVT in his leg, on anticoagulation since December per the patient. The posterior be done with anticoagulation but the will continue until his discharge from psychiatric floor Dizziness: Secondary to excessive diuresis and hypokalemia which improved now and diuretics are being resumed Mild troponin elevation not indicative of an acute coronary event. Patient has chronic elevated troponins History of coronary artery disease status post recent angioplasty in October 2017 [facility] Ischemic cardiomyopathy chronic systolic dysfunction with EF of 20-25% patient has an AICD Chronic systolic heart failure, currently appears to be euvolemic Type 2 diabetes mellitus: Resume his home regimen, titrate as necessary Hypertension Dyslipidemia Suicidal ideation: Patient will be discharged back to psychiatric floor presently doesn't have any suicidal ideations Plan - Discharge Summary New Discharge Prescriptions: New Isosorbide Mononitrate ER [Imdur] 30 mg PO DAILY tab.er.24h Continue Metoprolol Succinate [Toprol XL] 25 mg PO DAILY@0800 Clopidogrel [Plavix] 75 mg PO DAILY@0800 Rosuvastatin [Crestor] 20 mg PO HS@2100 Apixaban [Eliquis] 5 mg PO BID@0800,1700 Digoxin [Digitek] 125 mcg PO DAILY@0800 Gabapentin [Neurontin] 400 mg PO TID@0600,1400,2100 Spironolactone [Aldactone] 25 mg PO DAILY@0800 Torsemide [Demadex] 40 mg PO BID Aspirin 81 mg PO DAILY chew Albuterol Inhaler [Ventolin Hfa Inhaler] 2 puff INHALATION RT-Q6H PRN PRN Reason: Shortness Of Breath Primidone [Mysoline] 100 mg PO HS Pantoprazole [Protonix] 40 mg PO DAILY Nitroglycerin Sl Tabs [Nitrostat] 0.4 mg SUBLINGUAL Q5M PRN tab PRN Reason: Chest Pain ARIPiprazole [Abilify] 30 mg PO DAILY #30 tab hydrOXYzine PAMOATE [Vistaril] 50 mg PO TID PRN #45 capsule PRN Reason: Anxiety traMADol HCl [Ultram] 50 mg PO Q6H PRN tab PRN Reason: chest pain buPROPion XL [Wellbutrin XL] 150 mg PO DAILY #30 tab.er.24h DULoxetine HCL [Cymbalta] 60 mg PO DAILY #30 capsule.dr Changed Insulin Aspart [NovoLOG (formulary)] 7 unit SQ AC-TID #0 Insulin Detemir [Levemir] 35 unit SQ HS #0 Discontinued Lisinopril [Zestril] 2.5 mg PO DAILY@0800 Insulin Glargine [Lantus] 27 unit SQ HS Discharge Medication List Clopidogrel [Plavix] 75 mg PO DAILY@0800 12/03/17 [History] Metoprolol Succinate [Toprol XL] 25 mg PO DAILY@0800 12/03/17 [History] Rosuvastatin [Crestor] 20 mg PO HS@209912/30/17 [History] Apixaban [Eliquis] 5 mg PO BID@0800,1700 02/01/18 [History] Digoxin [Digitek] 125 mcg PO DAILY@0800 02/01/18 [History] Gabapentin [Neurontin] 400 mg PO TID@0600,1400,209902/01/18 [History] Spironolactone [Aldactone] 25 mg PO DAILY@0800 02/01/18 [History] Torsemide [Demadex] 40 mg PO BID 02/01/18 [History] Aspirin 81 mg PO DAILY chew 02/03/18 [Rx] Albuterol Inhaler [Ventolin Hfa Inhaler] 2 puff INHALATION RT-Q6H PRN 04/01/18 [ History] Pantoprazole [Protonix] 40 mg PO DAILY 04/01/18 [History] Primidone [Mysoline] 100 mg PO HS 04/01/18 [History] Nitroglycerin Sl Tabs [Nitrostat] 0.4 mg SUBLINGUAL Q5M PRN tab 04/09/18 [Rx] ARIPiprazole [Abilify] 30 mg PO DAILY #30 tab 04/13/18 [Rx] DULoxetine HCL [Cymbalta] 60 mg PO DAILY #30 capsule.dr 04/13/18 [Rx] buPROPion XL [Wellbutrin XL] 150 mg PO DAILY #30 tab.er.24h 04/13/18 [Rx] hydrOXYzine PAMOATE [Vistaril] 50 mg PO TID PRN #45 capsule 04/13/18 [Rx] traMADol HCl [Ultram] 50 mg PO Q6H PRN tab 04/13/18 [Rx] Insulin Aspart [NovoLOG (formulary)] 7 unit SQ AC-TID #0 04/24/18 [Rx] Insulin Detemir [Levemir] 35 unit SQ HS #0 04/24/18 [Rx] Isosorbide Mononitrate ER [Imdur] 30 mg PO DAILY tab.er.24h 04/24/18 [Rx] Follow up Appointment(s)/Referral(s): [facility] [Outside] - As Needed (04.29.[address] Matson 05.10.18 at 0900 with Trupti Ibarra ) Discharge Disposition: TRANSFER TO PSYCH HOSP/UNIT
--- NOTE | 2018-04-26 15:27 | XR ---
EXAMINATION TYPE: XR chest 1V portable DATE OF EXAM: 04/26/2018 COMPARISON: 04/24/2018 HISTORY: Follow-up for congestive heart failure TECHNIQUE: Single frontal view of the chest is obtained. FINDINGS: There is redemonstration of cardiomegaly. No pulmonary vascular congestion is seen at this time. Multilead left-sided cardiac device is similar in position. No sizable pneumothorax or pleural effusion. IMPRESSION: Cardiomegaly with no evidence of pulmonary vascular congestion nor pleural effusions.
[2018-04-26 16:57] LABS: Glucose,Whole Blood 206 mg/dL (75-99)
== END 2018-04-26 19:51 | DRG 313 ==
LOC: 3SCARD 00:42 → 4MS4W 04-25 11:02
PROVIDERS: ADMIT Hospitalist; ATTEND Hospitalist
DX: R07.89 Other chest pain (principal); N17.9 Acute kidney failure, unspecified; F33.3 Major depressive disorder, recurrent, severe with psychotic symptoms; I50.22 Chronic systolic (congestive) heart failure; I11.0 Hypertensive heart disease with heart failure; E11.42 Type 2 diabetes mellitus with diabetic polyneuropathy; E78.5 Hyperlipidemia, unspecified; E87.6 Hypokalemia; F43.10 Post-traumatic stress disorder, unspecified; E11.43 Type 2 diabetes mellitus with diabetic autonomic (poly)neuropathy; J45.909 Unspecified asthma, uncomplicated; K21.9 Gastro-esophageal reflux disease without esophagitis; L98.9 Disorder of the skin and subcutaneous tissue, unspecified; M19.90 Unspecified osteoarthritis, unspecified site; I25.119 Atherosclerotic heart disease of native coronary artery with unspecified angina pectoris; K31.84 Gastroparesis; K29.50 Unspecified chronic gastritis without bleeding; G47.33 Obstructive sleep apnea (adult) (pediatric); I25.5 Ischemic cardiomyopathy; E86.1 Hypovolemia; T50.2X5A Adverse effect of carbonic-anhydrase inhibitors, benzothiadiazides and other diuretics, initial encounter; I25.2 Old myocardial infarction; Z91.5 Personal history of self-harm; Z95.5 Presence of coronary angioplasty implant and graft; Z95.810 Presence of automatic (implantable) cardiac defibrillator; Z86.73 Personal history of transient ischemic attack (TIA), and cerebral infarction without residual deficits; Z79.899 Other long term (current) drug therapy; Z79.82 Long term (current) use of aspirin; Z79.4 Long term (current) use of insulin; Z79.02 Long term (current) use of antithrombotics/antiplatelets; Z79.01 Long term (current) use of anticoagulants; Z86.718 Personal history of other venous thrombosis and embolism; Z88.0 Allergy status to penicillin; Z88.5 Allergy status to narcotic agent; Z87.440 Personal history of urinary (tract) infections; Z86.14 Personal history of Methicillin resistant Staphylococcus aureus infection; Z82.0 Family history of epilepsy and other diseases of the nervous system; Z82.49 Family history of ischemic heart disease and other diseases of the circulatory system; Z83.3 Family history of diabetes mellitus; Z88.1 Allergy status to other antibiotic agents; Z91.041 Radiographic dye allergy status; Z91.013 Allergy to seafood
CPT/HCPCS: 71045; 80048; 80162; 83036; 83735; 84484; 85025; 85730; 94640

== ENCOUNTER 2018-05-01 22:45 | Inpatient (IN) | payer MEDICARE ==
--- NOTE | 2018-05-01 23:09 | ED ---
General Adult HPI - General Source: patient, RN notes reviewed, old records reviewed Mode of arrival: ambulatory Limitations: no limitations <Ayush Jackman - Last Filed: 05/02/18 06:21> <Ayush Webber - Last Filed: 05/02/18 12:08> - General Chief complaint: Psychiatric Symptoms Stated complaint: Hallucinations Time Seen by Provider: 05/01/18 22:56 - History of Present Illness Initial comments: 42-year-old male history of depression and hallucinations over the past one month presents with worsening symptoms including visual and auditory hallucinations and suicidal ideation. Patient denies suicide attempt, denies any self-harm. He states that the hallucinations have intensified and have increased his suicidal thoughts. Patient is concerned that he will commit suicide although he denies a specific plan at this time. (Ayush Jackman) - Related Data Home Medications Medication Instructions Recorded Confirmed Clopidogrel [Plavix] 75 mg PO DAILY@0800 12/03/17 05/02/18 Metoprolol Succinate [Toprol XL] 25 mg PO DAILY@0800 12/03/17 05/02/18 Rosuvastatin [Crestor] 20 mg PO HS@209912/30/17 05/02/18 Apixaban [Eliquis] 5 mg PO BID@0800,1700 02/01/18 05/02/18 Digoxin [Digitek] 125 mcg PO DAILY@0800 02/01/18 05/02/18 Gabapentin [Neurontin] 400 mg PO TID@0600,1400,2100 02/01/18 05/02/18 Spironolactone [Aldactone] 25 mg PO DAILY@0800 02/01/18 05/02/18 Torsemide [Demadex] 40 mg PO BID 02/01/18 05/02/18 Albuterol Inhaler [Ventolin Hfa 2 puff INHALATION RT-Q6H PRN 04/01/18 05/02/18 Inhaler] Pantoprazole [Protonix] 40 mg PO DAILY 04/01/18 05/02/18 Primidone [Mysoline] 100 mg PO HS 04/01/18 05/02/18 Previous Rx's Medication Instructions Recorded Aspirin 81 mg PO DAILY chew 02/03/18 Nitroglycerin Sl Tabs [Nitrostat] 0.4 mg SUBLINGUAL Q5M PRN tab 04/09/18 ARIPiprazole [Abilify] 30 mg PO DAILY #30 tab 04/13/18 DULoxetine HCL [Cymbalta] 60 mg PO DAILY #30 capsule.dr 04/13/18 buPROPion XL [Wellbutrin XL] 150 mg PO DAILY #30 tab.er.24h 04/13/18 hydrOXYzine PAMOATE [Vistaril] 50 mg PO TID PRN #45 capsule 04/13/18 traMADol HCl [Ultram] 50 mg PO Q6H PRN tab 04/13/18 Insulin Aspart [NovoLOG 7 unit SQ AC-TID #0 04/24/18 (formulary)] Insulin Detemir [Levemir] 35 unit SQ HS #0 04/24/18 Isosorbide Mononitrate ER [Imdur] 30 mg PO DAILY tab.er.24h 04/24/18 Allergies Allergy/AdvReac Type Severity Reaction Status Date / Time erythromycin base Allergy Severe Rash/Hives Verified 05/02/18 10:43 [Erythromycin Base] cephalexin monohydrate Allergy Unknown Rash/Hives Verified 05/02/18 10:43 [From Keflex] codeine Allergy Unknown Unknown Verified 05/02/18 10:43 meclizine Allergy Unknown Unknown Verified 05/02/18 10:43 Penicillins Allergy Unknown Rash/Hives Verified 05/02/18 10:43 shellfish derived Allergy Unknown Anaphylaxis Verified 05/02/18 10:43 Fish Containing Products Allergy Anaphylaxis Verified 05/02/18 10:43 [Fish] Iodinated Contrast- Oral and Allergy Anaphylaxis Verified 05/02/18 10:43 IV Dye naproxen AdvReac Unknown Compromises Verified 05/02/18 10:43 Kidney Function atorvastatin calcium AdvReac Myalgia Verified 05/02/18 10:43 [From Lipitor] hydrocodone [From [place]] AdvReac Rapid Verified 05/01/18 22:53 Heart Rate Review of Systems ROS Other: All systems not noted in ROS Statement are negative. <Ayush Jackman - Last Filed: 05/02/18 06:21> ROS Other: All systems not noted in ROS Statement are negative. <Ayush Webbre - Last Filed: 05/02/18 12:08> ROS Statement: Those systems with pertinent positive or pertinent negative responses have been documented in the HPI. Past Medical History Past Medical History: Asthma, Coronary Artery Disease (CAD), Chest Pain / Angina , Heart Failure, CVA/TIA, Diabetes Mellitus, Deep Vein Thrombosis (DVT), GERD/ Reflux, Hyperlipidemia, Hypertension, Myocardial Infarction (KS), Osteoarthritis (OA), Pneumonia, Skin Disorder, Sleep Apnea/CPAP/BIPAP Additional Past Medical History / Comment(s): multiple vessel CAD, ischemic cardiomyopathy, diabetic neuropathy bilateral hands and feet, hypertensive cardiovascular disease, SHELIA with no device, chronic gastritis, degenerative disc disease, chronic back pain, depression with hx of suicide attempts, gastroparesis, psoriasis, UTI, migraines, TIA, PUD, hiatal hernia, L rotator cuff tear, bronchitis, pseudoaneurysm L groin post procedure. 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 Date of Last Stent Placement:: 10/2017 Type of Cardiac Device: Biventricular Pacemaker, AICD Device Placement Date:: 09/19/15 Past Psychological History: Anxiety, Depression, PTSD Smoking Status: Never smoker Past Alcohol Use History: None Reported Past Drug Use History: None Reported - Past Family History Mother Family Medical History: Coronary Artery Disease (CAD), Myocardial Infarction (KS ) Additional Family Medical History / Comment(s): 7 KS and faulty heart valve. Pt does not know the age when mother had her KS's. Father History Unknown: Yes Additional Family Medical History / Comment(s): Does not know who father is. Brother(s) Family Medical History: Cancer, Congestive Heart Failure (CHF), Myocardial Infarction (KS) Additional Family Medical History / Comment(s): Parkinsons. Pt does not know at what age his brother had an KS. Patient's other brother has lung CA Patient has Family Medical History: No Reported History Additional Family Medical History / Comment(s): There is a strong family history for heart disease, hypertension, and diabetes. <Ayush Jackman - Last Filed: 05/02/18 06:21> General Exam Limitations: no limitations General appearance: alert, in no apparent distress Head exam: Present: atraumatic, normocephalic Eye exam: Present: normal appearance, PERRL ENT exam: Present: normal exam Neck exam: Present: normal inspection. Absent: tenderness, meningismus Respiratory exam: Present: normal lung sounds bilaterally. Absent: respiratory distress, wheezes Cardiovascular Exam: Present: regular rate, normal rhythm GI/Abdominal exam: Present: soft Extremities exam: Present: normal capillary refill, pedal edema Neurological exam: Present: alert, oriented X3 Psychiatric exam: Present: depressed, flat affect, suicidal ideation Skin exam: Present: warm, dry, intact. Absent: cyanosis, diaphoretic <Ayush Jackman - Last Filed: 05/02/18 06:21> Course <Ayush Jackman - Last Filed: 05/02/18 06:21> <Ayush Webber - Last Filed: 05/02/18 12:08> Vital Signs 05/01/18 22:47 Temperature 97.9 F Pulse Rate 89 Respiratory 20 Rate Blood Pressure 112/61 O2 Sat by Pulse 98 Oximetry - Reevaluation(s) Reevaluation #1: 05/02/18 0420 I did complete a clinical certification of this patient regarding the need for inpatient treatment. (Ayush Jackman) Reevaluation #2: 05/02/18 0700 Patient's care is signed out at shift change to Dr. Webber awaiting EPS disposition. (Ayush Jackman) Medical Decision Making - Lab Data Result diagrams: 05/02/18 02:54 05/02/18 02:54 <Ayush Jackman - Last Filed: 05/02/18 06:21> - Lab Data Result diagrams: 05/02/18 02:54 05/02/18 02:54 <Ayush Webber - Last Filed: 05/02/18 12:08> - Lab Data Lab Results 05/01/18 05/02/18 05/02/18 Range/Units 23:16 00:47 02:54 WBC 5.3 (3.8-10.6) k/uL RBC 4.44 (4.30-5.90) m/uL Hgb 11.8 L (13.0-17.5) gm/dL Hct 36.8 L (39.0-53.0) % MCV 82.9 (80.0-100.0) fL MCH 26.5 (25.0-35.0) pg MCHC 32.0 (31.0-37.0) g/dL RDW 16.6 H (11.5-15.5) % Plt Count 196 (150-450) k/uL Neutrophils % 65 % Lymphocytes % 24 % Monocytes % 5 % Eosinophils % 4 % Basophils % 1 % Neutrophils # 3.4 (1.3-7.7) k/uL Lymphocytes # 1.2 (1.0-4.8) k/uL Monocytes # 0.3 (0-1.0) k/uL Eosinophils # 0.2 (0-0.7) k/uL Basophils # 0.1 (0-0.2) k/uL Anisocytosis Slight Sodium (137-145) mmol/L Potassium (3.5-5.1) mmol/L Chloride (98-107) mmol/L Carbon Dioxide (22-30) mmol/L Anion Gap mmol/L BUN (9-20) mg/dL Creatinine (0.66-1.25) mg/dL Est GFR (CKD-EPI)AfAm (>60 ml/min/1.73 sqM) Est GFR (CKD-EPI)NonAf (>60 ml/min/1.73 sqM) Glucose (74-99) mg/dL POC Glucose (mg/dL) 148 H (75-99) mg/dL POC Glu Academic Coach ID Leia Manjarrez Calcium (8.4-10.2) mg/dL Total Bilirubin (0.2-1.3) mg/dL AST (17-59) U/L ALT (21-72) U/L Alkaline Phosphatase (38-126) U/L Total Protein (6.3-8.2) g/dL Albumin (3.5-5.0) g/dL Urine Opiates Screen Not Detected (NotDetected) Ur Oxycodone Screen Not Detected (NotDetected) Urine Methadone Screen Not Detected (NotDetected) Ur Propoxyphene Screen Not Detected (NotDetected) Ur Barbiturates Screen Detected H (NotDetected) U Tricyclic Antidepress Not Detected (NotDetected) Ur Phencyclidine Scrn Not Detected (NotDetected) Ur Amphetamines Screen Not Detected (NotDetected) U Methamphetamines Scrn Not Detected (NotDetected) U Benzodiazepines Scrn Not Detected (NotDetected) Urine Cocaine Screen Not Detected (NotDetected) U Marijuana (THC) Screen Not Detected (NotDetected) 05/02/18 05/02/18 Range/Units 02:54 04:10 WBC (3.8-10.6) k/uL RBC (4.30-5.90) m/uL Hgb (13.0-17.5) gm/dL Hct (39.0-53.0) % MCV (80.0-100.0) fL MCH (25.0-35.0) pg MCHC (31.0-37.0) g/dL RDW (11.5-15.5) % Plt Count (150-450) k/uL Neutrophils % % Lymphocytes % % Monocytes % % Eosinophils % % Basophils % % Neutrophils # (1.3-7.7) k/uL Lymphocytes # (1.0-4.8) k/uL Monocytes # (0-1.0) k/uL Eosinophils # (0-0.7) k/uL Basophils # (0-0.2) k/uL Anisocytosis Sodium 135 L (137-145) mmol/L Potassium 4.0 (3.5-5.1) mmol/L Chloride 101 (98-107) mmol/L Carbon Dioxide 24 (22-30) mmol/L Anion Gap 10 mmol/L BUN 42 H (9-20) mg/dL Creatinine 1.08 (0.66-1.25) mg/dL Est GFR (CKD-EPI)AfAm >90 (>60 ml/min/1.73 sqM) Est GFR (CKD-EPI)NonAf 84 (>60 ml/min/1.73 sqM) Glucose 77 (74-99) mg/dL POC Glucose (mg/dL) 75 (75-99) mg/dL POC Glu Academic Coach ID Aubree Rangel Calcium 9.0 (8.4-10.2) mg/dL Total Bilirubin 0.5 (0.2-1.3) mg/dL AST 27 (17-59) U/L ALT 34 (21-72) U/L Alkaline Phosphatase 149 H (38-126) U/L Total Protein 5.9 L (6.3-8.2) g/dL Albumin 3.1 L (3.5-5.0) g/dL Urine Opiates Screen (NotDetected) Ur Oxycodone Screen (NotDetected) Urine Methadone Screen (NotDetected) Ur Propoxyphene Screen (NotDetected) Ur Barbiturates Screen (NotDetected) U Tricyclic Antidepress (NotDetected) Ur Phencyclidine Scrn (NotDetected) Ur Amphetamines Screen (NotDetected) U Methamphetamines Scrn (NotDetected) U Benzodiazepines Scrn (NotDetected) Urine Cocaine Screen (NotDetected) U Marijuana (THC) Screen (NotDetected) Disposition <Ayush Jackman - Last Filed: 05/02/18 06:21> <Ayush Webber - Last Filed: 05/02/18 12:08> Clinical Impression: Depression, Suicidal ideation Disposition: TRANSFER TO PSYCH HOSP/UNIT Condition: Stable
[2018-05-01 23:36] LABS: Amphetamine Screen,Urine Not Detected (NotDetected); Barbiturate Screen,Urine Detected (NotDetected); Benzodiazepines Screen,Urine Not Detected (NotDetected); Cocaine Screen,Urine Not Detected (NotDetected); Methadone Screen, Urine Not Detected (NotDetected); Opiate Screen,Urine Not Detected (NotDetected); Oxycodone Screen, Urine Not Detected (NotDetected); Phencyclidine Screen,Urine Not Detected (NotDetected); Tricyclic Antidepressant,Urine Not Detected (NotDetected); Urn Cannabinoid Scrn Not Detected (NotDetected)
[2018-05-02 01:07] LABS: Glucose,Whole Blood 148 mg/dL (75-99)
[2018-05-02 03:10] LABS: Anisocytosis Slight; Basophils # (A) 0.1 k/uL (0-0.2); Basophils % (A) 1 %; Eosinophils # (A) 0.2 k/uL (0-0.7); Eosinophils % (A) 4 %; HCT 36.8 % (39.0-53.0); HGB 11.8 gm/dL (13.0-17.5); Lymphocytes # (A) 1.2 k/uL (1.0-4.8); Lymphocytes % (A) 24 %; MCH 26.5 pg (25.0-35.0); MCV 82.9 fL (80.0-100.0); Mean Platelet Volume 7.2; Monocytes # (A) 0.3 k/uL (0-1.0); Monocytes % (A) 5 %; Neutrophils # (A) 3.4 k/uL (1.3-7.7); Neutrophils % (A) 65 %; Platelet Count 196 k/uL (150-450); RBC 4.44 m/uL (4.30-5.90); RDW 16.6 % (11.5-15.5); WBC 5.3 k/uL (3.8-10.6)
[2018-05-02 03:15] LABS: ALT 34 U/L (21-72); AST 27 U/L (17-59); Albumin 3.1 g/dL (3.5-5.0); Alkaline Phosphatase 149 U/L (38-126); Anion Gap 10 mmol/L; Blood Urea Nitrogen 42 mg/dL (9-20); Carbon Dioxide 24 mmol/L (22-30); Chloride 101 mmol/L (98-107); Glucose 77 mg/dL (74-99); Sodium 135 mmol/L (137-145); Total Bilirubin 0.5 mg/dL (0.2-1.3); Total Protein 5.9 g/dL (6.3-8.2)
[2018-05-02] MEDS ORDERED: ACETAMINOPHEN TAB 325 MG TAB PO STA (03:21)
[2018-05-02 04:12] LABS: Glucose,Whole Blood 75 mg/dL (75-99)
[2018-05-02] MEDS ORDERED: MAG HYDROX/AL HYDROX/SIMETH 30 ML CUP PO PRN (12:27)
[2018-05-02] MEDS ORDERED: ACETAMINOPHEN TAB 325 MG TAB PO PRN (12:27)
[2018-05-02] MEDS ORDERED: MAGNESIUM HYDROXIDE 2,400 MG/10 ML CUP PO PRN (12:27)
[2018-05-02] MEDS ORDERED: hydrOXYzine PAMOATE 25 MG CAP PO PRN (12:33)
[2018-05-02] MEDS ORDERED: NITROGLYCERIN SL TABS 0.4 MG TAB SUBLINGUAL PRN (12:33)
[2018-05-02 13:30] LABS: Glucose,Whole Blood 584 mg/dL (75-99)
[2018-05-02] MEDS: ISOSORBIDE MONONITRATE ER 30 MG TAB.ER.24H PO SCH (13:44)
[2018-05-02] MEDS: TORSEMIDE 20 MG TAB PO SCH ×2 (13:44→20:19)
[2018-05-02] MEDS: PANTOPRAZOLE 40 MG TABLET PO SCH (13:44)
[2018-05-02] MEDS: ASPIRIN 81 MG PO SCH (13:45)
[2018-05-02] MEDS: DULoxetine HCL 60 MG CAPSULE.DR PO SCH ×2 (13:45→20:20)
[2018-05-02] MEDS: GABAPENTIN 400 MG CAP PO SCH ×2 (13:45→20:20)
[2018-05-02] MEDS: SPIRONOLACTONE 25 MG TAB PO SCH (13:45)
[2018-05-02] MEDS: DIGOXIN 125 MCG TAB PO SCH (13:45)
[2018-05-02] MEDS: INSULIN ASPART 100 UNIT/ML 1 ML 10 ML VIAL SQ SCH ×5 (13:54→20:16)
[2018-05-02 13:59] VITALS: BMI 35.7
[2018-05-02 14:53] LABS: Glucose,Whole Blood 383 mg/dL (75-99)
[2018-05-02] MEDS ORDERED: INSULIN ASPART 100 UNIT/ML 1 ML 10 ML VIAL SQ ONE (14:53)
[2018-05-02 17:56] LABS: Glucose,Whole Blood 214 mg/dL (75-99)
[2018-05-02 20:11] LABS: Glucose,Whole Blood 194 mg/dL (75-99)
[2018-05-02] MEDS: PRIMIDONE 50 MG TAB PO SCH (20:19)
[2018-05-02] MEDS: ROSUVASTATIN 40 MG PO SCH (20:57)
[2018-05-02] MEDS ORDERED: ATORVASTATIN 40 MG TAB PO SCH (21:00)
[2018-05-02] MEDS ORDERED: INSULIN DETEMIR 100 UNIT/ML 10 ML VIAL SQ SCH (21:00)
[2018-05-03 01:05] LABS: Glucose,Whole Blood 130 mg/dL (75-99)
[2018-05-03] MEDS: GABAPENTIN 400 MG CAP PO SCH ×3 (06:13→20:09)
[2018-05-03 06:43] LABS: Glucose,Whole Blood 80 mg/dL (75-99)
[2018-05-03] MEDS: METOPROLOL SUCCINATE (ER) 25 MG TAB.ER.24H PO SCH (07:39)
[2018-05-03] MEDS: ISOSORBIDE MONONITRATE ER 30 MG TAB.ER.24H PO SCH (07:39)
[2018-05-03] MEDS: ASPIRIN 81 MG PO SCH (07:39)
[2018-05-03] MEDS: DIGOXIN 125 MCG TAB PO SCH (07:39)
[2018-05-03] MEDS: DULoxetine HCL 60 MG CAPSULE.DR PO SCH ×2 (07:39→20:09)
[2018-05-03] MEDS: TORSEMIDE 20 MG TAB PO SCH ×2 (07:39→20:07)
[2018-05-03] MEDS: SPIRONOLACTONE 25 MG TAB PO SCH (07:39)
[2018-05-03] MEDS: CLOPIDOGREL 75 MG TAB PO SCH (07:39)
[2018-05-03] MEDS: PANTOPRAZOLE 40 MG TABLET PO SCH (07:39)
[2018-05-03] MEDS: INSULIN ASPART 100 UNIT/ML 1 ML 10 ML VIAL SQ SCH ×7 (07:40→20:08)
[2018-05-03] MEDS: traMADol 50 MG TAB PO PRN ×3 (07:42→23:03)
[2018-05-03 07:47] LABS: Glucose,Whole Blood 91 mg/dL (75-99)
[2018-05-03] MEDS: ALBUTEROL INHALER 60 PUFF/8 GM INHALER INHALATION PRN ×2 (11:04→21:49)
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
[2018-05-03] MEDS ORDERED: CLOPIDOGREL 75 MG TAB PO SCH (12:00)
[2018-05-03] MEDS ORDERED: METOPROLOL SUCCINATE (ER) 25 MG TAB.ER.24H PO SCH (12:00)
[2018-05-03 12:10] LABS: Glucose,Whole Blood 191 mg/dL (75-99)
[2018-05-03] MEDS: hydrOXYzine HCL 25 MG TAB PO PRN ×2 (12:28→20:12)
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
[2018-05-03 17:24] LABS: Glucose,Whole Blood 312 mg/dL (75-99)
[2018-05-03] MEDS ORDERED: INSULIN ASPART 100 UNIT/ML 1 ML 10 ML VIAL SQ ONE (17:59)
[2018-05-03 19:58] LABS: Glucose,Whole Blood 358 mg/dL (75-99)
[2018-05-03 20:03] LABS: Glucose,Whole Blood 340 mg/dL (75-99)
[2018-05-03] MEDS: PRIMIDONE 50 MG TAB PO SCH (20:09)
[2018-05-03] MEDS: ROSUVASTATIN 40 MG PO SCH (20:10)
[2018-05-03] MEDS ORDERED: INSULIN DETEMIR 100 UNIT/ML 10 ML VIAL SQ SCH (21:00)
[2018-05-03] MEDS: FLUTICASONE 50MCG/SPRAY NASAL 16GM EA NOSTRIL PRN (23:04)
[2018-05-04] MEDS: GABAPENTIN 400 MG CAP PO SCH ×3 (06:27→21:47)
[2018-05-04 06:32] LABS: Glucose,Whole Blood 216 mg/dL (75-99)
[2018-05-04] MEDS: INSULIN ASPART 100 UNIT/ML 1 ML 10 ML VIAL SQ SCH ×7 (07:21→20:56)
[2018-05-04] MEDS: TORSEMIDE 20 MG TAB PO SCH ×2 (07:58→16:33)
[2018-05-04] MEDS: DIGOXIN 125 MCG TAB PO SCH (07:59)
[2018-05-04] MEDS: PANTOPRAZOLE 40 MG TABLET PO SCH (07:59)
[2018-05-04] MEDS: ISOSORBIDE MONONITRATE ER 30 MG TAB.ER.24H PO SCH (07:59)
[2018-05-04] MEDS: SPIRONOLACTONE 25 MG TAB PO SCH (07:59)
[2018-05-04] MEDS: ASPIRIN 81 MG PO SCH (07:59)
[2018-05-04] MEDS: METOPROLOL SUCCINATE (ER) 25 MG TAB.ER.24H PO SCH (07:59)
[2018-05-04] MEDS: CLOPIDOGREL 75 MG TAB PO SCH (07:59)
[2018-05-04] MEDS: DULoxetine HCL 60 MG CAPSULE.DR PO SCH ×2 (07:59→21:47)
[2018-05-04] MEDS: ALBUTEROL INHALER 60 PUFF/8 GM INHALER INHALATION PRN (09:28)
--- NOTE | 2018-05-04 09:47 | P.PN ---
Progress Note - Text Interval history: The patient is found in group he follows me to an interview room. He states his mood is fair. He continues to be troubled by visions. He is troubled by dreams and nightmares he is having regarding his son. Again we discussed those in details and came up with more strategies for him to try to employ this evening. He has been making a better effort in attending groups during this admission. Appetite stable. He has no questions or concerns regarding his psychotropic medication. Mental status exam: The patient is alert he is dressed in his own clothing he is wearing his tinted eyeglasses. Speech is fluent spontaneous nonpressured. He indicates his mood is fair but he is still concerned about the visions he is having and his dreams at night. This does contribute to him having hopelessness thinking. He is reporting no homicidal ideation intent or plan. He demonstrates no overt evidence of psychosis during our interaction. He does not appear hypomanic or manic. He maintains a constricted affect. Insight and judgment limited. He is oriented to person place and date. He demonstrates no involuntary repetitive movements. Plan: The patient will continue on his current psychotropic medications. We spent time discussing coping skill development and strategies he might use this evening. He will continue participating in the milieu. We will monitor him for safety. Vital signs reviewed. He is describing no physical discomfort specifically chest pain.
[2018-05-04 12:37] LABS: Glucose,Whole Blood 180 mg/dL (75-99)
[2018-05-04] MEDS: hydrOXYzine HCL 25 MG TAB PO PRN (16:35)
[2018-05-04 17:46] LABS: Glucose,Whole Blood 275 mg/dL (75-99)
[2018-05-04 20:25] LABS: Glucose,Whole Blood 336 mg/dL (75-99)
[2018-05-04] MEDS ORDERED: INSULIN ASPART 100 UNIT/ML 1 ML 10 ML VIAL SQ ONE (20:48)
[2018-05-04] MEDS ORDERED: INSULIN DETEMIR 100 UNIT/ML 10 ML VIAL SQ SCH (21:00)
[2018-05-04] MEDS: PRIMIDONE 50 MG TAB PO SCH (21:47)
[2018-05-04] MEDS: ROSUVASTATIN 40 MG PO SCH (21:48)
[2018-05-04] MEDS: INSULIN DETEMIR 100 UNIT/ML 10 ML VIAL SQ SCH (21:53)
[2018-05-04 23:30] LABS: Glucose,Whole Blood 245 mg/dL (75-99)
[2018-05-05] MEDS ORDERED: ZIPRASIDONE 20 MG VIAL IM PRN (02:01)
--- NOTE | 2018-05-05 02:46 | CT ---
EXAMINATION TYPE: CT brain wo con DATE OF EXAM: 05/05/2018 COMPARISON: 04/11/2018 HISTORY: head injury;evaluate for trauma CT DLP: 1064.30 mGycm. Automated Exposure Control for Dose Reduction was Utilized. TECHNIQUE: CT scan of the head is performed without contrast. FINDINGS: There is cerebral cortical atrophy. There is no mass effect nor midline shift. There is no sign of intracranial hemorrhage. The calvarium is intact. IMPRESSION: There is cerebral atrophy in this relatively young patient. No acute intracranial abnormality. No zeina nge.
[2018-05-05] MEDS: GABAPENTIN 400 MG CAP PO SCH ×3 (06:25→21:56)
[2018-05-05 06:38] LABS: Glucose,Whole Blood 162 mg/dL (75-99)
[2018-05-05] MEDS: INSULIN ASPART 100 UNIT/ML 1 ML 10 ML VIAL SQ SCH ×7 (07:47→22:07)
[2018-05-05] MEDS: PANTOPRAZOLE 40 MG TABLET PO SCH ×2 (08:53→09:11)
[2018-05-05] MEDS: METOPROLOL SUCCINATE (ER) 25 MG TAB.ER.24H PO SCH ×2 (08:53→09:11)
[2018-05-05] MEDS: CLOPIDOGREL 75 MG TAB PO SCH (08:53)
[2018-05-05] MEDS: DIGOXIN 125 MCG TAB PO SCH ×2 (08:53→09:11)
[2018-05-05] MEDS: SPIRONOLACTONE 25 MG TAB PO SCH ×2 (08:54→09:11)
[2018-05-05] MEDS: TORSEMIDE 20 MG TAB PO SCH ×2 (09:10→16:29)
[2018-05-05] MEDS: hydrOXYzine HCL 25 MG TAB PO PRN (09:11)
[2018-05-05] MEDS: ASPIRIN 81 MG PO SCH (09:11)
[2018-05-05] MEDS: DULoxetine HCL 60 MG CAPSULE.DR PO SCH ×2 (09:11→21:56)
[2018-05-05] MEDS: ISOSORBIDE MONONITRATE ER 30 MG TAB.ER.24H PO SCH (09:12)
--- NOTE | 2018-05-05 09:53 | P.PN ---
Progress Note - Text Interval history: The patient is found in the hallway follows me to an interview room. The patient states that nobody cares for him here now but is listening to him. Last evening he was experiencing some physical symptoms he believed and he demanded to see an internal medicine physician. The internal medicine group was contacted. Vital signs were within normal limits. Out of frustration the patient began banging his head on objects and subsequently a head CT was ordered. There was no acute process detected with the head CT. At length we discussed this episode. Suggestions were made for cognitively reframing the events but he offers resistance. He indicates that he is doing better with attending groups. He has been eating. Up until late last evening there were no behavioral issues. We reviewed his psychotropic medication. The patient wanted me to contact his Jade. I did speak with her via phone. She to believes that Ti will misrepresent conversations that he participates in. She states she encourages him to not "act like a child". With his I reviewed the psychotropic medication and our plan for coping skill development. She ventilates feelings of frustration and that he is been admitted so many times and does not seem to be improving. Mental status exam: The patient is an overweight male appearing his stated age. He seated calmly in the chair he is wearing his tinted eyeglasses. Eye contact is appropriate speech is fluent mainly reactive to questions spontaneous at times. He describes a frustrated mood. He states he feels that he isn't being listened to and nobody here cares about him and that staff are here for a paycheck. He reports no acute suicidal ideation but does spontaneously state that he is banging his head on objects. He reports no homicidal ideation. He describes visual hallucinations in his peripheral vision. He will at times experiencing auditory hallucination which she believes is the voice of his son. Insight and judgment are impaired. He demonstrates no involuntary repetitive movements. Due to his frustration he asks to terminate the session. Plan: The patient will continue on his current psychotropic medication. We will continue to look for ways for helping him cognitively reframe situations. His current status was discussed with his . Vital signs reviewed. The patient appears to be in no physical distress. We will monitor him for safety. He requires continued psychiatric hospitalization.
[2018-05-05] MEDS: FLUTICASONE 50MCG/SPRAY NASAL 16GM EA NOSTRIL PRN (12:32)
[2018-05-05 12:37] LABS: Glucose,Whole Blood 336 mg/dL (75-99)
[2018-05-05 17:26] LABS: Glucose,Whole Blood 247 mg/dL (75-99)
[2018-05-05 20:15] LABS: Glucose,Whole Blood 241 mg/dL (75-99)
[2018-05-05] MEDS: PRIMIDONE 50 MG TAB PO SCH (21:56)
[2018-05-05] MEDS: DOXYCYCLINE 100 MG CAP PO SCH (21:56)
[2018-05-05] MEDS: ROSUVASTATIN 40 MG PO SCH (21:57)
[2018-05-05] MEDS: traMADol 50 MG TAB PO PRN (22:00)
[2018-05-05] MEDS: INSULIN DETEMIR 100 UNIT/ML 10 ML VIAL SQ SCH (22:04)
[2018-05-06] MEDS: hydrOXYzine HCL 25 MG TAB PO PRN ×2 (04:59→12:21)
[2018-05-06] MEDS: GABAPENTIN 400 MG CAP PO SCH ×2 (06:08→12:59)
[2018-05-06 06:35] LABS: Glucose,Whole Blood 317 mg/dL (75-99)
[2018-05-06] MEDS: INSULIN ASPART 100 UNIT/ML 1 ML 10 ML VIAL SQ SCH ×7 (08:53→20:06)
[2018-05-06] MEDS: SPIRONOLACTONE 25 MG TAB PO SCH (08:53)
[2018-05-06] MEDS: DULoxetine HCL 60 MG CAPSULE.DR PO SCH (08:53)
[2018-05-06] MEDS: PANTOPRAZOLE 40 MG TABLET PO SCH (08:54)
[2018-05-06] MEDS: METOPROLOL SUCCINATE (ER) 25 MG TAB.ER.24H PO SCH (08:54)
[2018-05-06] MEDS: TORSEMIDE 20 MG TAB PO SCH ×2 (08:54→17:54)
[2018-05-06] MEDS: DOXYCYCLINE 100 MG CAP PO SCH (08:54)
[2018-05-06] MEDS: ASPIRIN 81 MG PO SCH (08:54)
[2018-05-06] MEDS: ISOSORBIDE MONONITRATE ER 30 MG TAB.ER.24H PO SCH (08:54)
[2018-05-06] MEDS: DIGOXIN 125 MCG TAB PO SCH (08:54)
[2018-05-06] MEDS: CLOPIDOGREL 75 MG TAB PO SCH (08:54)
[2018-05-06] MEDS: ALBUTEROL INHALER 60 PUFF/8 GM INHALER INHALATION PRN (08:57)
--- NOTE | 2018-05-06 10:08 | P.PN ---
Progress Note - Text Interval history: The patient is found in group when approached he refuses to speak with me in an interview room. Stating "I don't want to". Staff report no behavioral disturbances overnight. Yesterday he refused some of his medications it appears she's been compliant with him this morning. Mental status exam: The patient is alert he is seated upright in his chair participating in group. He is in no acute physical distress. He refuses to speak with me today. He demonstrates no involuntary repetitive movements. He demonstrates no verbal or physical aggressiveness. Insight and judgment impaired. Plan: The patient will continue on his current psychotropic medications we will encourage his compliance with group therapy. We will monitor him for safety. Vital signs reviewed.
[2018-05-06 12:28] LABS: Glucose,Whole Blood 310 mg/dL (75-99)
[2018-05-06 18:09] LABS: Glucose,Whole Blood 202 mg/dL (75-99)
[2018-05-06 20:02] LABS: Glucose,Whole Blood 256 mg/dL (75-99)
[2018-05-07] MEDS: GABAPENTIN 400 MG CAP PO SCH ×4 (06:21→21:11)
[2018-05-07 06:46] LABS: Glucose,Whole Blood 323 mg/dL (75-99)
[2018-05-07] MEDS: INSULIN ASPART 100 UNIT/ML 1 ML 10 ML VIAL SQ SCH ×7 (08:13→21:11)
[2018-05-07] MEDS: PANTOPRAZOLE 40 MG TABLET PO SCH (08:13)
[2018-05-07] MEDS: DOXYCYCLINE 100 MG CAP PO SCH ×3 (08:58→21:10)
[2018-05-07] MEDS: DULoxetine HCL 60 MG CAPSULE.DR PO SCH ×3 (08:59→21:10)
[2018-05-07] MEDS: METOPROLOL SUCCINATE (ER) 25 MG TAB.ER.24H PO SCH (09:00)
[2018-05-07] MEDS: DIGOXIN 125 MCG TAB PO SCH (09:00)
[2018-05-07] MEDS: SPIRONOLACTONE 25 MG TAB PO SCH (09:00)
[2018-05-07] MEDS: CLOPIDOGREL 75 MG TAB PO SCH (09:00)
[2018-05-07] MEDS: TORSEMIDE 20 MG TAB PO SCH ×2 (09:01→17:20)
[2018-05-07] MEDS: ISOSORBIDE MONONITRATE ER 30 MG TAB.ER.24H PO SCH (09:01)
[2018-05-07] MEDS: ASPIRIN 81 MG PO SCH (09:01)
[2018-05-07] MEDS: ALBUTEROL INHALER 60 PUFF/8 GM INHALER INHALATION PRN ×3 (09:04→21:01)
--- NOTE | 2018-05-07 11:03 | P.PN ---
Progress Note - Text Interval history: The patient's found in his room he does not wish to speak in an interview room as he states he does not feel well physically. He indicates he feels tired and has some upper respiratory tract symptoms. He reports that he attended all groups yesterday and found them beneficial. He indicates his mood is slowly improving. Social work states that a support meeting with his is scheduled for this weekend. His had previously asked if he could go to the partial program at [facility] upon discharge. Mental status exam: The patient is awake he is lying in bed. He has adequate eye contact speech is fluent. He answers questions asked and has little spontaneous speech. He indicates his mood is improving he reports feeling safe and is endorsing no acute suicidal ideation intent or plan. He demonstrates no verbal or physical aggressiveness he demonstrates no involuntary repetitive movements. He is describing no auditory or visual hallucinations at this time. Insight and judgment limited. He was offered opportunity to discuss his feelings of frustration from yesterday but he declined. Plan: The patient will continue on his current psychotropic medications. He is encouraged to continue participating in the milieu. We will await the outcome of the support meeting scheduled for this weekend. Vital signs reviewed.
[2018-05-07 12:08] LABS: Glucose,Whole Blood 121 mg/dL (75-99)
[2018-05-07] MEDS: FLUTICASONE 50MCG/SPRAY NASAL 16GM EA NOSTRIL PRN (12:12)
[2018-05-07 17:08] LABS: Glucose,Whole Blood 213 mg/dL (75-99)
[2018-05-07 20:14] LABS: Glucose,Whole Blood 333 mg/dL (75-99)
[2018-05-07] MEDS: INSULIN DETEMIR 100 UNIT/ML 10 ML VIAL SQ SCH ×3 (20:34→21:36)
[2018-05-07] MEDS: ROSUVASTATIN 40 MG PO SCH ×2 (20:34→21:17)
[2018-05-07] MEDS: PRIMIDONE 50 MG TAB PO SCH ×2 (20:34→21:15)
[2018-05-07] MEDS: traMADol 50 MG TAB PO PRN (21:23)
[2018-05-07] MEDS: hydrOXYzine HCL 25 MG TAB PO PRN (21:24)
[2018-05-08] MEDS: GABAPENTIN 400 MG CAP PO SCH ×3 (06:18→20:48)
[2018-05-08 06:24] LABS: Glucose,Whole Blood 281 mg/dL (75-99)
[2018-05-08] MEDS: INSULIN ASPART 100 UNIT/ML 1 ML 10 ML VIAL SQ SCH ×7 (07:52→20:51)
[2018-05-08] MEDS: TORSEMIDE 20 MG TAB PO SCH ×2 (07:53→14:58)
[2018-05-08] MEDS: METOPROLOL SUCCINATE (ER) 25 MG TAB.ER.24H PO SCH (07:54)
[2018-05-08] MEDS: ISOSORBIDE MONONITRATE ER 30 MG TAB.ER.24H PO SCH (07:54)
[2018-05-08] MEDS: DIGOXIN 125 MCG TAB PO SCH (07:54)
[2018-05-08] MEDS: DOXYCYCLINE 100 MG CAP PO SCH ×2 (07:54→20:47)
[2018-05-08] MEDS: ASPIRIN 81 MG PO SCH (07:54)
[2018-05-08] MEDS: SPIRONOLACTONE 25 MG TAB PO SCH (07:54)
[2018-05-08] MEDS: CLOPIDOGREL 75 MG TAB PO SCH (07:54)
[2018-05-08] MEDS: DULoxetine HCL 60 MG CAPSULE.DR PO SCH ×2 (07:55→20:48)
[2018-05-08] MEDS: PANTOPRAZOLE 40 MG TABLET PO SCH (07:55)
[2018-05-08 12:48] LABS: Glucose,Whole Blood 191 mg/dL (75-99)
--- NOTE | 2018-05-08 14:34 | P.PN ---
Progress Note - Text Progress Note Date: 05/08/18 Interval history: Patient is seen in [facility] today. He had a family meeting with his earlier today when she says went well. He does not seem to voice any adverse psychotropic medication side effects. The when necessary Vistaril is helping with his degree of anxiety. He has not been having any hallucinations over the past few days. Mental status exam: He is alert and cooperative with the interview. His thought processes are organized. His speech is fluent, not rapid or pressured. His mood him is he describes is improved. He denies any hallucinations over the past few days. He has not verbalize any current thoughts of harm to self or others, relays that he was angry with a peer a few days ago and had thoughts of breaking their fingers but has resolved the situation and currently denies any thoughts of harm to others. He does not show any current agitation. Plan: Patient will be maintained on current psychotropic medication regimen. Continue to monitor for any medication side effects and monitor his ongoing response to treatment. We'll continue to cover this patient through the weekend.
[2018-05-08 17:07] LABS: Glucose,Whole Blood 234 mg/dL (75-99)
[2018-05-08 20:48] LABS: Glucose,Whole Blood 308 mg/dL (75-99)
[2018-05-08] MEDS: INSULIN DETEMIR 100 UNIT/ML 10 ML VIAL SQ SCH (20:48)
[2018-05-08] MEDS: PRIMIDONE 50 MG TAB PO SCH (20:51)
[2018-05-08] MEDS: hydrOXYzine HCL 25 MG TAB PO PRN (20:53)
[2018-05-08] MEDS: traMADol 50 MG TAB PO PRN (20:54)
[2018-05-08] MEDS: ROSUVASTATIN 40 MG PO SCH (20:57)
[2018-05-08] MEDS: ALBUTEROL INHALER 60 PUFF/8 GM INHALER INHALATION PRN (21:09)
[2018-05-09] MEDS: GABAPENTIN 400 MG CAP PO SCH ×3 (06:54→20:41)
[2018-05-09 06:58] LABS: Glucose,Whole Blood 173 mg/dL (75-99)
[2018-05-09] MEDS: INSULIN ASPART 100 UNIT/ML 1 ML 10 ML VIAL SQ SCH ×7 (08:33→20:46)
[2018-05-09] MEDS: PANTOPRAZOLE 40 MG TABLET PO SCH (08:34)
[2018-05-09] MEDS: TORSEMIDE 20 MG TAB PO SCH ×2 (08:34→15:19)
[2018-05-09] MEDS: DIGOXIN 125 MCG TAB PO SCH (08:35)
[2018-05-09] MEDS: SPIRONOLACTONE 25 MG TAB PO SCH (08:35)
[2018-05-09] MEDS: DOXYCYCLINE 100 MG CAP PO SCH ×2 (08:35→20:41)
[2018-05-09] MEDS: ISOSORBIDE MONONITRATE ER 30 MG TAB.ER.24H PO SCH (08:35)
[2018-05-09] MEDS: METOPROLOL SUCCINATE (ER) 25 MG TAB.ER.24H PO SCH (08:35)
[2018-05-09] MEDS: DULoxetine HCL 60 MG CAPSULE.DR PO SCH ×2 (08:35→20:41)
[2018-05-09] MEDS: ASPIRIN 81 MG PO SCH (08:35)
[2018-05-09] MEDS: CLOPIDOGREL 75 MG TAB PO SCH (08:35)
[2018-05-09 12:12] LABS: Glucose,Whole Blood 241 mg/dL (75-99)
--- NOTE | 2018-05-09 15:47 | P.PN ---
Progress Note - Text Progress Note Date: 05/09/18 Interval history: Patient is [facility] in [facility]. He slept well last night, relays is eating well. He does describe is feeling some generalized pain today. He states that he needs to get some imaging done on different parts of his body. He relays that he feels like he would be ready for discharge tomorrow. He again relates that the family meeting went well. He does not voice any adverse psychotropic medication side effects. Mental status exam: He is alert and cooperative with the interview. His speech is fluent, not rapid or pressured. Thought processes are organized. His mood he describes is doing better. He denies any thoughts of harm to self or others. No evidence of active psychosis or any agitation. Plan: Patient will be maintained on current psychotropic medication regimen. Continue to monitor for any medication side effects and monitor his ongoing response to treatment.
[2018-05-09 17:13] LABS: Glucose,Whole Blood 252 mg/dL (75-99)
[2018-05-09 20:09] LABS: Glucose,Whole Blood 278 mg/dL (75-99)
[2018-05-09] MEDS: PRIMIDONE 50 MG TAB PO SCH (20:41)
[2018-05-09] MEDS: INSULIN DETEMIR 100 UNIT/ML 10 ML VIAL SQ SCH (20:43)
[2018-05-09] MEDS: hydrOXYzine HCL 25 MG TAB PO PRN (20:43)
[2018-05-09] MEDS: traMADol 50 MG TAB PO PRN (20:43)
[2018-05-09] MEDS: ROSUVASTATIN 40 MG PO SCH (20:52)
[2018-05-09] MEDS: ALBUTEROL INHALER 60 PUFF/8 GM INHALER INHALATION PRN (21:43)
[2018-05-10 01:27] VITALS: BP 109/68; PULSE 77; RESP 14; TEMP 98
[2018-05-10] MEDS: traMADol 50 MG TAB PO PRN (02:20)
[2018-05-10] MEDS: hydrOXYzine HCL 25 MG TAB PO PRN (05:04)
[2018-05-10] MEDS: GABAPENTIN 400 MG CAP PO SCH (06:09)
[2018-05-10 07:17] LABS: Glucose,Whole Blood 161 mg/dL (75-99)
[2018-05-10] MEDS: INSULIN ASPART 100 UNIT/ML 1 ML 10 ML VIAL SQ SCH ×2 (07:38→07:39)
[2018-05-10] MEDS: TORSEMIDE 20 MG TAB PO SCH (08:25)
[2018-05-10] MEDS: PANTOPRAZOLE 40 MG TABLET PO SCH (08:26)
[2018-05-10] MEDS: CLOPIDOGREL 75 MG TAB PO SCH (08:26)
[2018-05-10] MEDS: SPIRONOLACTONE 25 MG TAB PO SCH (08:26)
[2018-05-10] MEDS: DULoxetine HCL 60 MG CAPSULE.DR PO SCH (08:26)
[2018-05-10] MEDS: ASPIRIN 81 MG PO SCH (08:26)
[2018-05-10] MEDS: ISOSORBIDE MONONITRATE ER 30 MG TAB.ER.24H PO SCH (08:28)
[2018-05-10] MEDS: DIGOXIN 125 MCG TAB PO SCH (08:28)
[2018-05-10] MEDS: METOPROLOL SUCCINATE (ER) 25 MG TAB.ER.24H PO SCH (08:28)
[2018-05-10] MEDS: DOXYCYCLINE 100 MG CAP PO SCH (08:31)
[2018-05-10] MEDS: ALBUTEROL INHALER 60 PUFF/8 GM INHALER INHALATION PRN (08:55)
--- NOTE | 2018-05-10 09:33 | P.DS ---
Providers Date of admission: 05/02/18 12:00 Expected date of discharge: 05/10/18 Attending physician: Win Dale Consults: 05/02/18 12:27 Consult Physician Routine Consulting Provider: Safia Clay Consult Reason/Comments: medical care Do you want consulting provider notified?: Yes Primary care physician: Junie New - Discharge Diagnosis(es) (1) Major depressive disorder, recurrent, severe with psychotic features Current Visit: Yes Status: Acute Priority: High (2) Anxiety Current Visit: Yes Status: Acute Priority: Medium Hospital Course: This patient is a 42-year-old male who was admitted to the mental health unit through the emergency room with suicidal ideation and visual hallucinations. This is the patient's third psychiatric admission in a relatively short period of time. He described feeling hopeless and troubled by visual hallucinations. He stated he was not safe at home. The patient has followed up with [facility] as an outpatient. He is on [place] cis[facility]a his Cymbalta was increased again to 120 mg daily. And he uses Vistaril as needed for anxiety. For full details please refer to my psychiatric evaluation dated 05/03/2018. Summary of hospital course: The patient was admitted to the mental health unit voluntarily. We reviewed his presenting symptoms and treatment options. No medication changes were made. The patient was encouraged to attend groups and he did attend them more consistently during this hospitalization. We did try to offer suggestions for cognitive restructuring and to promote coping skill development. The patient requested that I speak with his and she provided collateral information. He has reported a progressive improvement of symptoms while here. The patient was seen by internal medicine for routine history and physical exam. There were no other events that occurred requiring any further medical attention. He did participate in a support meeting involving his this weekend and that seemed to go well. He is asking to go to the [facility] program upon discharge. During the course of this hospitalization he did demonstrates an episode of agitation where his demands weren't met so he began banging his head on a mirror. The on-call psychiatrist ordered a CAT scan of his head which demonstrated no acute process. Mental status exam: The patient is an overweight male he seated calmly in the chair. He is dressed in his own clothing. Hygiene and grooming are adequate. He has numerous visible tattoos. Eye contact is appropriate speech is fluent spontaneous nonpressured. He reports his mood is good he denies having any suicidal or homicidal ideation intent or plan. He is endorsing no auditory or visual hallucinations or any specific delusions. He demonstrates no observed evidence of psychosis. He does not appear hypomanic or manic. Thought process is free of any tangential thinking loose associations or flight of ideas. He demonstrates no verbal or physical aggressiveness. He demonstrates future oriented thinking. He is oriented to person place and date. He demonstrates no involuntary repetitive movements. Impressions 1. Major depressive disorder recurrent severe with psychosis, anxiety unspecified, rule out PTSD 2. Coronary artery disease, diabetes, obstructive sleep apnea, history of cerebrovascular accident Plan: The patient will be discharged from mental health unit today to return home. He plans on participating in the [facility] program beginning tomorrow. The patient will continue on Cymbalta 60 mg twice daily Vistaril 50 mg at bedtime. He has already been given the second invega systemic injection at [facility]. At this time there is no imminent safety risk he is appropriate for transition to the [facility] program. He is instructed to return to the hospital with any acute safety concerns. Patient Condition at Discharge: Stable Plan - Discharge Summary Discharge Rx Participant: No New Discharge Prescriptions: New Doxycycline [Vibramycin] 100 mg PO BID #3 cap DULoxetine HCL [Cymbalta] 60 mg PO BID capsule. Continue Metoprolol Succinate [Toprol XL] 25 mg PO DAILY@0800 Clopidogrel [Plavix] 75 mg PO DAILY@0800 Rosuvastatin [Crestor] 40 mg PO HS@2100 Digoxin [Digitek] 125 mcg PO DAILY@0800 Gabapentin [Neurontin] 400 mg PO TID@0600,1400,2100 Spironolactone [Aldactone] 25 mg PO DAILY@0800 Torsemide [Demadex] 40 mg PO BID Aspirin 81 mg PO DAILY chew Albuterol Inhaler [Ventolin Hfa Inhaler] 2 puff INHALATION RT-Q6H PRN PRN Reason: Shortness Of Breath Primidone [Mysoline] 100 mg PO HS Pantoprazole [Protonix] 40 mg PO DAILY Nitroglycerin Sl Tabs [Nitrostat] 0.4 mg SUBLINGUAL Q5M PRN tab PRN Reason: Chest Pain hydrOXYzine PAMOATE [Vistaril] 50 mg PO TID PRN #45 capsule PRN Reason: Anxiety traMADol HCl [Ultram] 50 mg PO Q6H PRN tab PRN Reason: chest pain Isosorbide Mononitrate ER [Imdur] 30 mg PO DAILY tab.er.24h Insulin Aspart [NovoLOG (formulary)] 7 unit SQ AC-TID #0 Insulin Detemir [Levemir] 35 unit SQ HS #0 Paliperidone IM [Invega Sustenna] 156 mg IM QMONTH Discontinued DULoxetine HCL [Cymbalta] 60 mg PO DAILY #30 capsule.dr Discharge Medication List Clopidogrel [Plavix] 75 mg PO DAILY@79912/03/17 [History] Metoprolol Succinate [Toprol XL] 25 mg PO DAILY@79912/03/17 [History] Rosuvastatin [Crestor] 40 mg PO HS@209912/30/17 [History] Digoxin [Digitek] 125 mcg PO DAILY@79902/01/18 [History] Gabapentin [Neurontin] 400 mg PO TID@0600,1400,209902/01/18 [History] Spironolactone [Aldactone] 25 mg PO DAILY@79902/01/18 [History] Torsemide [Demadex] 40 mg PO BID 02/01/18 [History] Aspirin 81 mg PO DAILY chew 02/03/18 [Rx] Albuterol Inhaler [Ventolin Hfa Inhaler] 2 puff INHALATION RT-Q6H PRN 04/01/18 [ History] Pantoprazole [Protonix] 40 mg PO DAILY 04/01/18 [History] Primidone [Mysoline] 100 mg PO HS 04/01/18 [History] Nitroglycerin Sl Tabs [Nitrostat] 0.4 mg SUBLINGUAL Q5M PRN tab 04/09/18 [Rx] hydrOXYzine PAMOATE [Vistaril] 50 mg PO TID PRN #45 capsule 04/13/18 [Rx] traMADol HCl [Ultram] 50 mg PO Q6H PRN tab 04/13/18 [Rx] Insulin Aspart [NovoLOG (formulary)] 7 unit SQ AC-TID #0 04/24/18 [Rx] Insulin Detemir [Levemir] 35 unit SQ HS #0 04/24/18 [Rx] Isosorbide Mononitrate ER [Imdur] 30 mg PO DAILY tab.er.24h 04/24/18 [Rx] Paliperidone IM [Invega Sustenna] 156 mg IM QMONTH 05/02/18 [History] DULoxetine HCL [Cymbalta] 60 mg PO BID capsule. 05/10/18 [Rx] Doxycycline [Vibramycin] 100 mg PO BID #3 cap 05/10/18 [Rx] Follow up Appointment(s)/Referral(s): None,Stated [REFERRING] - 1-2 days
== END 2018-05-10 12:45 | disposition home or self-care (01) | DRG 885 ==
LOC: EC 22:45 → 3MHU 05-02 12:00
PROVIDERS: ADMIT Psychiatry & Neurology Psychiatry; ATTEND Psychiatry & Neurology Psychiatry
DX: F33.3 Major depressive disorder, recurrent, severe with psychotic symptoms (principal); R45.851 Suicidal ideations; E11.40 Type 2 diabetes mellitus with diabetic neuropathy, unspecified; E66.3 Overweight; Z68.37 Body mass index [BMI] 37.0-37.9, adult; E78.5 Hyperlipidemia, unspecified; F43.10 Post-traumatic stress disorder, unspecified; G47.33 Obstructive sleep apnea (adult) (pediatric); I11.0 Hypertensive heart disease with heart failure; I25.10 Atherosclerotic heart disease of native coronary artery without angina pectoris; I25.2 Old myocardial infarction; I25.5 Ischemic cardiomyopathy; I50.9 Heart failure, unspecified; J45.909 Unspecified asthma, uncomplicated; K21.9 Gastro-esophageal reflux disease without esophagitis; Z79.01 Long term (current) use of anticoagulants; Z79.02 Long term (current) use of antithrombotics/antiplatelets; Z79.4 Long term (current) use of insulin; Z79.82 Long term (current) use of aspirin; Z79.899 Other long term (current) drug therapy; Z82.0 Family history of epilepsy and other diseases of the nervous system; Z82.49 Family history of ischemic heart disease and other diseases of the circulatory system; Z83.3 Family history of diabetes mellitus; Z86.73 Personal history of transient ischemic attack (TIA), and cerebral infarction without residual deficits; Z91.5 Personal history of self-harm; Z95.810 Presence of automatic (implantable) cardiac defibrillator; Z95.5 Presence of coronary angioplasty implant and graft; Z65.3 Problems related to other legal circumstances; Z88.6 Allergy status to analgesic agent; Z88.1 Allergy status to other antibiotic agents; Z91.041 Radiographic dye allergy status; Z88.5 Allergy status to narcotic agent; Z88.0 Allergy status to penicillin; Z91.013 Allergy to seafood; Z90.49 Acquired absence of other specified parts of digestive tract; E11.43 Type 2 diabetes mellitus with diabetic autonomic (poly)neuropathy; K31.84 Gastroparesis; Z80.9 Family history of malignant neoplasm, unspecified; M54.9 Dorsalgia, unspecified; G89.29 Other chronic pain; Z86.14 Personal history of Methicillin resistant Staphylococcus aureus infection; F10.11 Alcohol abuse, in remission; Z88.8 Allergy status to other drugs, medicaments and biological substances; Z63.4 Disappearance and death of family member; Z87.11 Personal history of peptic ulcer disease; R45.1 Restlessness and agitation
CPT/HCPCS: 36415; 70450; 80053; 80306; 82075; 85025; 94640; 99285

== ENCOUNTER 2018-05-21 23:41 | Observation (INO) | payer MEDICARE, OTHER ==
[2018-05-22] MEDS ORDERED: NITROGLYCERIN OINT 1 INCH/GM PACKET TOPICAL STA (00:23)
[2018-05-22] MEDS ORDERED: ASPIRIN 81 MG PO STA (00:23)
--- NOTE | 2018-05-22 00:37 | ED ---
General Adult HPI - General Source: patient, EMS, RN notes reviewed, old records reviewed Mode of arrival: EMS Limitations: no limitations <Frederick Garcia - Last Filed: 05/22/18 02:49> <Tomi Hernandez - Last Filed: 05/26/18 10:15> - General Chief complaint: Chest Pain Stated complaint: Chest Pain Time Seen by Provider: 05/22/18 00:08 - History of Present Illness Initial comments: Patient's a 42-year-old male presented to the emergency room today with a chief complaint of chest pain that began earlier today. He was at [facility] after recent stroke. Patient states that he began feeling some chest pain. He states it's a pressure and tightness. Currently rates an 8/10. Also experiencing some left-sided jaw pain. He states this is different from pain in the chest that is had in the past. Does admit to a history of heart attacks and stents. Patient does admit that at [facility] they did give him a sublingual nitroglycerin which did relieve some of the pain. Patient denies any other complaints currently. Patient denies any recent fever, chills, shortness of breath, back pain, abdominal pain, nausea or vomiting, dysuria or hematuria, constipation or diarrhea, headaches or visual changes, or any other complaints. (Frederick Garcia) - Related Data Home Medications Medication Instructions Recorded Confirmed Clopidogrel [Plavix] 75 mg PO DAILY@79912/03/17 05/22/18 Metoprolol Succinate [Toprol XL] 25 mg PO DAILY@79912/03/17 05/22/18 Rosuvastatin [Crestor] 40 mg PO HS@209912/30/17 05/22/18 Digoxin [Digitek] 125 mcg PO DAILY@79902/01/18 05/22/18 Gabapentin [Neurontin] 400 mg PO TID@0600,1400,2100 02/01/18 05/22/18 Spironolactone [Aldactone] 25 mg PO DAILY@79902/01/18 05/22/18 Torsemide [Demadex] 40 mg PO BID 02/01/18 05/22/18 Albuterol Inhaler [Ventolin Hfa 2 puff INHALATION RT-Q6H PRN 04/01/18 05/22/18 Inhaler] Pantoprazole [Protonix] 40 mg PO DAILY 04/01/18 05/22/18 Primidone [Mysoline] 100 mg PO HS 04/01/18 05/22/18 Paliperidone IM [Invega Sustenna] 156 mg IM QMONTH 05/02/18 05/22/18 Previous Rx's Medication Instructions Recorded Aspirin 81 mg PO DAILY chew 02/03/18 Nitroglycerin Sl Tabs [Nitrostat] 0.4 mg SUBLINGUAL Q5M PRN tab 04/09/18 hydrOXYzine PAMOATE [Vistaril] 50 mg PO TID PRN #45 capsule 04/13/18 traMADol HCl [Ultram] 50 mg PO Q6H PRN tab 04/13/18 Insulin Aspart [NovoLOG 7 unit SQ AC-TID #0 04/24/18 (formulary)] Insulin Detemir [Levemir] 35 unit SQ HS #0 04/24/18 Isosorbide Mononitrate ER [Imdur] 30 mg PO DAILY tab.er.24h 04/24/18 DULoxetine HCL [Cymbalta] 60 mg PO BID capsule. 05/10/18 Doxycycline [Vibramycin] 100 mg PO BID #3 cap 05/10/18 Allergies Allergy/AdvReac Type Severity Reaction Status Date / Time erythromycin base Allergy Severe Rash/Hives Verified 05/22/18 07:14 [Erythromycin Base] cephalexin monohydrate Allergy Unknown Rash/Hives Verified 05/22/18 07:14 [From Keflex] codeine Allergy Unknown Unknown Verified 05/22/18 07:14 meclizine Allergy Unknown Unknown Verified 05/22/18 07:14 Penicillins Allergy Unknown Rash/Hives Verified 05/22/18 07:14 shellfish derived Allergy Unknown Anaphylaxis Verified 05/22/18 07:14 Fish Containing Products Allergy Anaphylaxis Verified 05/22/18 07:14 [Fish] Iodinated Contrast- Oral and Allergy Anaphylaxis Verified 05/22/18 07:14 IV Dye naproxen AdvReac Unknown Compromises Verified 05/22/18 07:14 Kidney Function atorvastatin calcium AdvReac Myalgia Verified 05/22/18 07:14 [From Lipitor] hydrocodone [From [place]] AdvReac Rapid Verified 05/22/18 07:14 Heart Rate Review of Systems ROS Other: All systems not noted in ROS Statement are negative. <Frederick Garcia - Last Filed: 05/22/18 02:49> ROS Other: All systems not noted in ROS Statement are negative. <MaryTomi - Last Filed: 05/26/18 10:15> ROS Statement: Those systems with pertinent positive or pertinent negative responses have been documented in the HPI. Past Medical History Past Medical History: Asthma, Coronary Artery Disease (CAD), Chest Pain / Angina , Heart Failure, CVA/TIA, Diabetes Mellitus, Deep Vein Thrombosis (DVT), GERD/ Reflux, Hyperlipidemia, Hypertension, Myocardial Infarction (ME), Osteoarthritis (OA), Pneumonia, Skin Disorder, Sleep Apnea/CPAP/BIPAP Additional Past Medical History / Comment(s): multiple vessel CAD, ischemic cardiomyopathy, diabetic neuropathy bilateral hands and feet, hypertensive cardiovascular disease, SHELIA with no device, chronic gastritis, degenerative disc disease, chronic back pain, depression with hx of suicide attempts, gastroparesis, psoriasis, UTI, migraines, TIA, PUD, hiatal hernia, L rotator cuff tear, bronchitis, pseudoaneurysm L groin post procedure. 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 Date of Last Stent Placement:: 10/2017 Type of Cardiac Device: Biventricular Pacemaker, AICD Device Placement Date:: 09/19/15 Past Psychological History: Anxiety, Depression, PTSD Smoking Status: Never smoker Past Alcohol Use History: None Reported Past Drug Use History: None Reported - Past Family History Mother Family Medical History: Coronary Artery Disease (CAD), Myocardial Infarction (ME ) Additional Family Medical History / Comment(s): 7 ME and faulty heart valve. Pt does not know the age when mother had her ME's. Father History Unknown: Yes Additional Family Medical History / Comment(s): Does not know who father is. Brother(s) Family Medical History: Cancer, Congestive Heart Failure (CHF), Myocardial Infarction (ME) Additional Family Medical History / Comment(s): Parkinsons. Pt does not know at what age his brother had an ME. Patient's other brother has lung CA Patient has Family Medical History: No Reported History Additional Family Medical History / Comment(s): There is a strong family history for heart disease, hypertension, and diabetes. <Frederick Garcia - Last Filed: 05/22/18 02:49> General Exam Limitations: no limitations <Frederick Garcia - Last Filed: 05/22/18 02:49> <Tomi Hernandez - Last Filed: 05/26/18 10:15> - General Exam Comments Initial Comments: General: The patient is awake and alert, in no distress, and does not appear acutely ill. Eye: There is normal conjunctiva bilaterally. No signs of icterus. Ears, nose, mouth and throat: There are moist mucous membranes and no oral lesions. Neck: The neck is supple. Cardiovascular: There is a regular rate and rhythm. No murmur, rub or gallop is appreciated. Respiratory: Lungs are clear to auscultation, respirations are non-labored, breath sounds are equal. No wheezes, stridor, rales, or rhonchi. Gastrointestinal: Abdomen soft on palpation. Mild tenderness in the upper quadrants and epigastric area. No rebound, guarding or CVA tenderness. Musculoskeletal: Normal ROM, no tenderness. Strength 5/5. Sensation intact. Radial pulses equal bilaterally 2+. Neurological: A&O x 3. CN II-XII intact, There are no obvious motor or sensory deficits. Coordination appears grossly intact. Speech is normal. Skin: Skin is warm and dry and no rashes or lesions are noted. Psychiatric: Cooperative, appropriate mood & affect, normal judgment. 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 AL interval 152. QRS 108. QT/QTC 394/460. No acute ST changes. Compared to previous EKG on 05/02/2018. <Frederick Garcia - Last Filed: 05/22/18 02:49> Medical Decision Making - Lab Data Result diagrams: 05/22/18 01:15 05/22/18 01:15 <Frederick Garcia - Last Filed: 05/22/18 02:49> - Lab Data Result diagrams: 05/22/18 01:15 05/22/18 01:15 <Tomi Hernandez - Last Filed: 05/26/18 10:15> - Medical Decision Making Patient reexamined at this time shows no signs of distress. His chest x-ray was reviewed. His labs were reviewed negative initial set of cardiac enzymes. Chest x-ray showing no acute changes. Patient did have some relief with nitro here in the emergency room. Was given morphine for remaining pain. Patient does have cardiac history. She will be admitted for serial enzymes with consult cardiology. (Frederick Garcia) I saw this patient in conjunction with the physician assistant bookkeeper. I performed independent history and physical exam. Agree with case management. (Tomi Hernandez) - Lab Data Lab Results 05/22/18 05/22/18 05/22/18 Range/Units 01:15 01:15 01:15 WBC 5.1 (3.8-10.6) k/uL RBC 4.47 (4.30-5.90) m/uL Hgb 11.8 L (13.0-17.5) gm/dL Hct 37.3 L (39.0-53.0) % MCV 83.4 (80.0-100.0) fL MCH 26.5 (25.0-35.0) pg MCHC 31.7 (31.0-37.0) g/dL RDW 17.3 H (11.5-15.5) % Plt Count 144 L (150-450) k/uL Neutrophils % 67 % Lymphocytes % 21 % Monocytes % 6 % Eosinophils % 4 % Basophils % 1 % Neutrophils # 3.4 (1.3-7.7) k/uL Lymphocytes # 1.1 (1.0-4.8) k/uL Monocytes # 0.3 (0-1.0) k/uL Eosinophils # 0.2 (0-0.7) k/uL Basophils # 0.0 (0-0.2) k/uL Anisocytosis Slight PT (9.0-12.0) sec INR (<1.2) APTT (22.0-30.0) sec Sodium 135 L (137-145) mmol/L Potassium 3.8 (3.5-5.1) mmol/L Chloride 102 (98-107) mmol/L Carbon Dioxide 23 (22-30) mmol/L Anion Gap 10 mmol/L BUN 26 H (9-20) mg/dL Creatinine 0.91 (0.66-1.25) mg/dL Est GFR (CKD-EPI)AfAm >90 (>60 ml/min/1.73 sqM) Est GFR (CKD-EPI)NonAf >90 (>60 ml/min/1.73 sqM) Glucose 184 H (74-99) mg/dL Calcium 8.8 (8.4-10.2) mg/dL Magnesium 1.5 L (1.6-2.3) mg/dL Total Bilirubin 0.5 (0.2-1.3) mg/dL AST 22 (17-59) U/L ALT 36 (21-72) U/L Alkaline Phosphatase 133 H (38-126) U/L Total Creatine Kinase 101 (55-170) U/L CK-MB (CK-2) 2.4 (0.0-2.4) ng/mL CK-MB (CK-2) Rel Index 2.4 Troponin I 0.026 (0.000-0.034) ng/mL Total Protein 5.6 L (6.3-8.2) g/dL Albumin 3.0 L (3.5-5.0) g/dL Amylase <30 L (30-110) U/L Lipase 70 (23-300) U/L 05/22/18 Range/Units 01:15 WBC (3.8-10.6) k/uL RBC (4.30-5.90) m/uL Hgb (13.0-17.5) gm/dL Hct (39.0-53.0) % MCV (80.0-100.0) fL MCH (25.0-35.0) pg MCHC (31.0-37.0) g/dL RDW (11.5-15.5) % Plt Count (150-450) k/uL Neutrophils % % Lymphocytes % % Monocytes % % Eosinophils % % Basophils % % Neutrophils # (1.3-7.7) k/uL Lymphocytes # (1.0-4.8) k/uL Monocytes # (0-1.0) k/uL Eosinophils # (0-0.7) k/uL Basophils # (0-0.2) k/uL Anisocytosis PT 11.8 (9.0-12.0) sec INR 1.1 (<1.2) APTT 22.8 (22.0-30.0) sec Sodium (137-145) mmol/L Potassium (3.5-5.1) mmol/L Chloride (98-107) mmol/L Carbon Dioxide (22-30) mmol/L Anion Gap mmol/L BUN (9-20) mg/dL Creatinine (0.66-1.25) mg/dL Est GFR (CKD-EPI)AfAm (>60 ml/min/1.73 sqM) Est GFR (CKD-EPI)NonAf (>60 ml/min/1.73 sqM) Glucose (74-99) mg/dL Calcium (8.4-10.2) mg/dL Magnesium (1.6-2.3) mg/dL Total Bilirubin (0.2-1.3) mg/dL AST (17-59) U/L ALT (21-72) U/L Alkaline Phosphatase (38-126) U/L Total Creatine Kinase (55-170) U/L CK-MB (CK-2) (0.0-2.4) ng/mL CK-MB (CK-2) Rel Index Troponin I (0.000-0.034) ng/mL Total Protein (6.3-8.2) g/dL Albumin (3.5-5.0) g/dL Amylase (30-110) U/L Lipase (23-300) U/L Disposition Is patient prescribed a controlled substance at d/c from ED?: No Time of Disposition: 02:50 <Frederick Garcia Last Filed: 05/22/18 02:49> <Tomi Hernandez - Last Filed: 05/26/18 10:15> Clinical Impression: Chest pain Disposition: ADMITTED IP TO THIS HOSP Condition: Stable
--- NOTE | 2018-05-22 01:14 | XR ---
EXAMINATION TYPE: XR chest 2V DATE OF EXAM: 05/22/2018 COMPARISON: 04/26/2018 HISTORY: Chest pain TECHNIQUE: Frontal and lateral views of the chest are obtained. FINDINGS: There is no heart failure nor confluent pneumonic infiltrate. There is left axillary pacem gena with the lead tips in the right ventricle. There are chest leads. Costophrenic angles are clear. There is minimal blunting of the posterior costophrenic angle on the right side. IMPRESSION: Tiny amount of pleural fluid on the right side. No heart failure. No significant change.
[2018-05-22 01:31] LABS: Anisocytosis Slight; Basophils % (A) 1 %; Eosinophils # (A) 0.2 k/uL (0-0.7); Eosinophils % (A) 4 %; HCT 37.3 % (39.0-53.0); HGB 11.8 gm/dL (13.0-17.5); Lymphocytes # (A) 1.1 k/uL (1.0-4.8); Lymphocytes % (A) 21 %; MCH 26.5 pg (25.0-35.0); MCHC 31.7 g/dL (31.0-37.0); MCV 83.4 fL (80.0-100.0); Monocytes # (A) 0.3 k/uL (0-1.0); Monocytes % (A) 6 %; Neutrophils # (A) 3.4 k/uL (1.3-7.7); Neutrophils % (A) 67 %; Platelet Count 144 k/uL (150-450); RBC 4.47 m/uL (4.30-5.90); RDW 17.3 % (11.5-15.5); WBC 5.1 k/uL (3.8-10.6)
[2018-05-22 01:40] LABS: INR 1.1 (<1.2); Partial Thromboplastin Time 22.8 sec (22.0-30.0); Prothrombin Time 11.8 sec (9.0-12.0)
[2018-05-22 01:46] LABS: ALT 36 U/L (21-72); AST 22 U/L (17-59); Alkaline Phosphatase 133 U/L (38-126); Anion Gap 10 mmol/L; Blood Urea Nitrogen 26 mg/dL (9-20); Calcium 8.8 mg/dL (8.4-10.2); Carbon Dioxide 23 mmol/L (22-30); Chloride 102 mmol/L (98-107); Glucose 184 mg/dL (74-99); Lipase 70 U/L (23-300); Magnesium 1.5 mg/dL (1.6-2.3); Potassium 3.8 mmol/L (3.5-5.1); Sodium 135 mmol/L (137-145); Total Bilirubin 0.5 mg/dL (0.2-1.3); Total Protein 5.6 g/dL (6.3-8.2)
[2018-05-22] MEDS ORDERED: MORPHINE SULFATE 4 MG/ML SYRINGE IV STA (02:02)
[2018-05-22 02:22] LABS: Amylase <30 U/L (30-110); Creatine Kinase MB 2.4 ng/mL (0.0-2.4); Troponin I 0.026 ng/mL (0.000-0.034)
[2018-05-22] MEDS ORDERED: SODIUM CHLORIDE 0.9% 1,000 ML IV ONE (02:50)
[2018-05-22] MEDS ORDERED: NITROGLYCERIN OINT 1 INCH/GM PACKET TOPICAL SCH (06:00)
[2018-05-22 06:06] LABS: Glucose,Whole Blood 141 mg/dL (75-99)
[2018-05-22 06:10] VITALS: BMI 41.9
[2018-05-22 06:33] VITALS: RESP 18
[2018-05-22 08:24] LABS: Creatine Kinase MB 1.9 ng/mL (0.0-2.4); Troponin I 0.022 ng/mL (0.000-0.034)
[2018-05-22] MEDS ORDERED: MORPHINE SULFATE 2 MG/ML SYRINGE IVP PRN (11:03)
[2018-05-22 11:04] LABS: Glucose,Whole Blood 84 mg/dL (75-99)
[2018-05-22] MEDS ORDERED: ALBUTEROL NEBULIZED 2.5 MG/3 ML INHALATION PRN (11:04)
[2018-05-22] MEDS ORDERED: NITROGLYCERIN SL TABS 0.4 MG TAB SUBLINGUAL PRN (11:04)
[2018-05-22] MEDS ORDERED: hydrOXYzine PAMOATE 25 MG CAP PO PRN (11:04)
[2018-05-22] MEDS ORDERED: Magnesium Replacement Protocol 1 EACH MISC MISCELLANE PRN (11:21)
[2018-05-22] MEDS: MAGNESIUM SULFATE-D5W PMX 1 GM in DEXTROSE/WATER 1 100ML.BAG IVPB SCH ×2 (12:30→15:13)
[2018-05-22] MEDS: PANTOPRAZOLE 40 MG TABLET PO SCH (12:31)
[2018-05-22] MEDS: ISOSORBIDE MONONITRATE ER 30 MG TAB.ER.24H PO SCH (12:31)
[2018-05-22] MEDS: DULoxetine HCL 60 MG CAPSULE.DR PO SCH ×2 (12:32→20:43)
[2018-05-22] MEDS: INSULIN ASPART 100 UNIT/ML 1 ML 10 ML VIAL SQ SCH ×2 (12:32→16:47)
[2018-05-22] MEDS: METOPROLOL SUCCINATE (ER) 25 MG TAB.ER.24H PO SCH (12:32)
[2018-05-22] MEDS: DIGOXIN 125 MCG TAB PO SCH (12:32)
[2018-05-22] MEDS: GABAPENTIN 400 MG CAP PO SCH ×2 (12:32→20:44)
[2018-05-22] MEDS: CLOPIDOGREL 75 MG TAB PO SCH (12:32)
--- NOTE | 2018-05-22 13:13 | P.CRDCN ---
History of Present Illness History of present illness: This is Dr. Kang dictating a consult on this patient The patient was interviewed and examined by me IMPRESSION / ASSESSMENT: Atypical chest discomfort at 2 normal cardiac enzymes PLAN: Continue current medications for coronary artery disease and cardio myopathy and CVA. No further workup from a cardiac standpoint during this admission We'll sign off HPI Patient presented to the emergency room with chest pain and pressure. 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 EXAMINATION Resting comfortably in bed no JVD no respiratory distress Sounds are clear no rhonchi no crackles Heart sounds are normal no murmurs or gallops or rub Abdomen soft REVIEW OF LABS, ECG Hemoglobin 11.8, electrolytes normal 2 normal troponins low magnesium Biventricular paced rhythm on twelve-lead ECG Past Medical History Past Medical History: Asthma, Coronary Artery Disease (CAD), Chest Pain / Angina , Heart Failure, CVA/TIA, Diabetes Mellitus, Deep Vein Thrombosis (DVT), GERD/ Reflux, Hyperlipidemia, Hypertension, Myocardial Infarction (AK), Osteoarthritis (OA), Pneumonia, Skin Disorder, Sleep Apnea/CPAP/BIPAP Additional Past Medical History / Comment(s): multiple vessel CAD, ischemic cardiomyopathy, diabetic neuropathy bilateral hands and feet, hypertensive cardiovascular disease, SHELIA with no device, chronic gastritis, degenerative disc disease, chronic back pain, depression with hx of suicide attempts, gastroparesis, psoriasis, UTI, migraines, TIA, PUD, hiatal hernia, L rotator cuff tear, bronchitis, pseudoaneurysm L groin post procedure. 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 Date of Last Stent Placement:: 10/2017 Type of Cardiac Device: Biventricular Pacemaker, AICD Device Placement Date:: 09/19/15 Past Psychological History: Anxiety, Depression, PTSD Additional Psychological History / Comment(s): Several suicide attempts with use of insulin. PTSD - in 2000 his 3mo old son in his arms (born 2 months premature). Pt states he is currently suicidal and wishes he were . He has a walker at home if needed. He drives.pt has 2 adult stepchildren at home with him most of the time. Spouse manages his medications. He is on a 1500 cc fluid restriction. Smoking Status: Never smoker Past Alcohol Use History: None Reported Additional Past Alcohol Use History / Comment(s): Past alcohol abuse - pt states he quit drinking over 8yrs ago. Past Drug Use History: None Reported Additional Drug Use History / Comment(s): Pt has smoked marijuana in the past - last smoked in 1999. - Past Family History Mother Family Medical History: Coronary Artery Disease (CAD), Myocardial Infarction (AK ) Additional Family Medical History / Comment(s): 7 AK and faulty heart valve. Pt does not know the age when mother had her AK's. Father History Unknown: Yes Additional Family Medical History / Comment(s): Does not know who father is. Brother(s) Family Medical History: Cancer, Congestive Heart Failure (CHF), Myocardial Infarction (AK) Additional Family Medical History / Comment(s): Parkinsons. Pt does not know at what age his brother had an AK. Patient's other brother has lung CA Patient has Family Medical History: No Reported History Additional Family Medical History / Comment(s): There is a strong family history for heart disease, hypertension, and diabetes. Medications and Allergies Home Medications Medication Instructions Recorded Confirmed Type Clopidogrel [Plavix] 75 mg PO DAILY@0800 12/03/17 05/22/18 History Metoprolol Succinate [Toprol XL] 25 mg PO DAILY@0800 12/03/17 05/22/18 History Rosuvastatin [Crestor] 40 mg PO HS@209912/30/17 05/22/18 History Digoxin [Digitek] 125 mcg PO DAILY@0800 02/01/18 05/22/18 History Gabapentin [Neurontin] 400 mg PO TID@0600,1400,2100 02/01/18 05/22/18 History Spironolactone [Aldactone] 25 mg PO DAILY@0800 02/01/18 05/22/18 History Torsemide [Demadex] 40 mg PO BID 02/01/18 05/22/18 History Aspirin 81 mg PO DAILY chew 02/03/18 05/22/18 Rx Albuterol Inhaler [Ventolin Hfa 2 puff INHALATION RT-Q6H PRN 04/01/18 05/22/18 History Inhaler] Pantoprazole [Protonix] 40 mg PO DAILY 04/01/18 05/22/18 History Primidone [Mysoline] 100 mg PO HS 04/01/18 05/22/18 History Nitroglycerin Sl Tabs [Nitrostat] 0.4 mg SUBLINGUAL Q5M PRN tab 04/09/18 Rx hydrOXYzine PAMOATE [Vistaril] 50 mg PO TID PRN #45 capsule 04/13/18 05/22/18 Rx traMADol HCl [Ultram] 50 mg PO Q6H PRN tab 04/13/18 05/22/18 Rx Insulin Aspart [NovoLOG 7 unit SQ AC-TID #0 04/24/18 05/22/18 Rx (formulary)] Insulin Detemir [Levemir] 35 unit SQ HS #0 04/24/18 05/22/18 Rx Isosorbide Mononitrate ER [Imdur] 30 mg PO DAILY tab.er.24h 04/24/18 05/22/18 Rx Paliperidone IM [Invega Sustenna] 156 mg IM QMONTH 05/02/18 05/22/18 History DULoxetine HCL [Cymbalta] 60 mg PO BID capsule. 05/10/18 05/22/18 Rx Doxycycline [Vibramycin] 100 mg PO BID #3 cap 05/10/18 05/22/18 Rx Allergies Allergy/AdvReac Type Severity Reaction Status Date / Time erythromycin base Allergy Severe Rash/Hives Verified 05/22/18 07:14 [Erythromycin Base] cephalexin monohydrate Allergy Unknown Rash/Hives Verified 05/22/18 07:14 [From Keflex] codeine Allergy Unknown Unknown Verified 05/22/18 07:14 meclizine Allergy Unknown Unknown Verified 05/22/18 07:14 Penicillins Allergy Unknown Rash/Hives Verified 05/22/18 07:14 shellfish derived Allergy Unknown Anaphylaxis Verified 05/22/18 07:14 Fish Containing Products Allergy Anaphylaxis Verified 05/22/18 07:14 [Fish] Iodinated Contrast- Oral and Allergy Anaphylaxis Verified 05/22/18 07:14 IV Dye naproxen AdvReac Unknown Compromises Verified 05/22/18 07:14 Kidney Function atorvastatin calcium AdvReac Myalgia Verified 05/22/18 07:14 [From Lipitor] hydrocodone [From [place]] AdvReac Rapid Verified 05/22/18 07:14 Heart Rate Physical Exam Vitals: Vital Signs Temp Pulse Pulse Pulse Resp BP BP 05/22/18 08:00 80 82 18 116/64 05/22/18 06:33 98.0 F 80 18 118/72 05/22/18 06:26 80 18 05/22/18 05:00 98.3 F 75 19 112/73 05/22/18 02:02 79 79 17 107/64 05/21/18 23:42 42 L 18 128/73 Pulse Ox 05/22/18 08:00 98 05/22/18 06:33 99 05/22/18 06:26 05/22/18 05:00 95 05/22/18 02:02 97 05/21/18 23:42 99 Intake and Output 05/21/18 05/22/18 05/22/18 22:59 06:59 14:59 Intake Total 20 Balance 20 Intake: Intake, IV Titration 20 Amount Sodium Chloride 0.9% 1, 20 000 ml @ 20 mls/hr IV . Q24H ONE Rx#:[id number] Other: Voiding Method Toilet Toilet Urinal Urinal Weight 117.934 kg Results 05/22/18 01:15 05/22/18 01:15 Cardiac Enzymes 05/22/18 05/22/18 05/22/18 Range/Units 01:15 01:15 07:09 AST 22 (17-59) U/L CK-MB (CK-2) 2.4 1.9 (0.0-2.4) ng/mL Troponin I 0.026 0.022 (0.000-0.034) ng/mL Coagulation 05/22/18 Range/Units 01:15 PT 11.8 (9.0-12.0) sec APTT 22.8 (22.0-30.0) sec CBC 05/22/18 Range/Units 01:15 WBC 5.1 (3.8-10.6) k/uL RBC 4.47 (4.30-5.90) m/uL Hgb 11.8 L (13.0-17.5) gm/dL Hct 37.3 L (39.0-53.0) % Plt Count 144 L (150-450) k/uL Comprehensive Metabolic Panel 05/22/18 Range/Units 01:15 Sodium 135 L (137-145) mmol/L Potassium 3.8 (3.5-5.1) mmol/L Chloride 102 (98-107) mmol/L Carbon Dioxide 23 (22-30) mmol/L BUN 26 H (9-20) mg/dL Creatinine 0.91 (0.66-1.25) mg/dL Glucose 184 H (74-99) mg/dL Calcium 8.8 (8.4-10.2) mg/dL AST 22 (17-59) U/L ALT 36 (21-72) U/L Alkaline Phosphatase 133 H (38-126) U/L Total Protein 5.6 L (6.3-8.2) g/dL Albumin 3.0 L (3.5-5.0) g/dL Current Medications Generic Name Dose Route Start Last Admin Trade Name Freq PRN Reason Stop Dose Admin Albuterol Sulfate 2.5 mg 05/22/18 11:04 Ventolin Nebulized INHALATION RT-Q6H PRN Shortness Of Breath Aspirin 325 mg 05/23/18 09:00 Aspirin PO DAILY [facility] Clopidogrel Bisulfate 75 mg 05/22/18 11:06 05/22/18 12:32 Plavix PO 75 mg DAILY@0800 [facility] Administration Digoxin 125 mcg 05/22/18 11:06 05/22/18 12:32 Lanoxin PO 125 mcg DAILY@0800 [facility] Administration Doxycycline Monohydrate 100 mg 05/22/18 21:00 Vibramycin PO BID [facility] Duloxetine HCl 60 mg 05/22/18 11:15 05/22/18 12:32 Cymbalta PO 60 mg BID [facility] Administration Gabapentin 400 mg 05/22/18 14:00 05/22/18 12:32 Neurontin PO 400 mg TID@0600,1400,2100 [facility] Administration Heparin Sodium (Porcine) 5,000 unit 05/22/18 21:00 Heparin SQ Q12HR [facility] Hydroxyzine Pamoate 50 mg 05/22/18 11:04 Vistaril PO TID PRN Anxiety Sodium Chloride 1,000 mls @ 20 mls/hr 05/22/18 02:50 05/22/18 05:39 Saline 0.9% IV 05/23/18 02:49 20 mls/hr .Q24H ONE Administration Magnesium Sulfate/Dextrose 1 100 mls @ 100 mls/hr 05/22/18 12:00 05/22/18 12: 30 gm/ IV Solution IVPB 05/22/18 13:59 100 mls/hr Q1H [facility] Administration Insulin Aspart 7 unit 05/22/18 12:30 05/22/18 12:32 Novolog SQ Not Given AC-TID [facility] Insulin Detemir 35 unit 05/22/18 21:00 Levemir SQ [facility] Isosorbide Mononitrate 30 mg 05/22/18 11:15 05/22/18 12:31 Imdur PO 30 mg DAILY [facility] Administration Metoprolol Succinate 25 mg 05/22/18 11:07 05/22/18 12:32 Toprol Xl PO 25 mg DAILY@0800 [facility] Administration Miscellaneous Information 1 each 05/22/18 11:21 Magnesium Per Protocol MISCELLANE DAILY PRN Per Protocol Protocol Morphine Sulfate 2 mg 05/22/18 11:03 05/22/18 12:33 Morphine Sulfate (Inj) IVP 2 mg Q4HR PRN Administration CHEST PAIN Nitroglycerin 0.4 mg 05/22/18 11:04 Nitrostat SUBLINGUAL Q5M PRN Chest Pain Crestor ( 40 mg 05/22/18 21:00 Rosuvastatin 40 Mg) PO Nonform HS@2100 [facility] Pantoprazole Sodium 40 mg 05/22/18 11:15 05/22/18 12:31 Protonix PO 40 mg DAILY [facility] Administration Primidone 100 mg 05/22/18 21:00 Mysoline PO HS [facility] Spironolactone 25 mg 05/23/18 08:00 Aldactone PO DAILY@0800 [facility] Torsemide 40 mg 05/22/18 16:00 Demadex PO BID@0900,1600 [facility] Tramadol HCl 50 mg 05/22/18 11:04 Ultram PO Q6H PRN chest pain Intake and Output 05/21/18 05/22/18 05/22/18 22:59 06:59 14:59 Intake Total 20 Balance 20 Intake: Intake, IV Titration 20 Amount Sodium Chloride 0.9% 1, 20 000 ml @ 20 mls/hr IV . Q24H ONE Rx#:[id number] Other: Voiding Method Toilet Toilet Urinal Urinal Weight 117.934 kg 05/22/18 01:15 05/22/18 01:15
[2018-05-22 15:56] LABS: Creatine Kinase MB 2.1 ng/mL (0.0-2.4); Troponin I 0.018 ng/mL (0.000-0.034)
[2018-05-22] MEDS: TORSEMIDE 20 MG TAB PO SCH (16:46)
[2018-05-22 17:08] LABS: Glucose,Whole Blood 182 mg/dL (75-99)
--- NOTE | 2018-05-22 18:55 | HP ---
HISTORY AND PHYSICAL DATE OF SERVICE: 05/22/2018 CHIEF COMPLAINT: Chest pain. HISTORY OF PRESENT ILLNESS: This 42-year-old gentleman with a past medical history of multiple medical problems including asthma, CAD, CHF, diabetes Type 2, DVT, hypertension, myocardial infarction, history of DJD, sleep apnea, history of multivessel CAD, ischemic cardiomyopathy being followed by Dr. Junie New in the outpatient setting, is complaining of chest pain. The patient has had multiple hospital admissions. The patient complains of chest pain in the middle of the chest which is rather constricting and a combination of burning pain also without much radiation or any associated symptoms or relieving factors. The patient was admitted for further evaluation and treatment. Cardiology evaluation in progress. There is no history of fever, rigors or chills. No history of headache, loss consciousness or seizures at this time. The patient had history of bilateral total ICD implant also. PAST MEDICAL HISTORY: History of asthma, CAD, history of CHF, CVA, TIA, diabetes Type 2, history of DVT, history of hypertension, hyperlipidemia, history of myocardial infarction, history of AICD, appendectomy, CAD stent. MEDICATIONS: Home medications are prior to admission include home medications are: 1. Ultram 50 mg q.6 p.r.n. 2. Vistaril 50 mg t.i.d. p.r.n. 3. Demadex 40 mg p.o. b.i.d. 4. Aldactone 25 mg p.o. daily. 5. Crestor 40 mg q.h.s. 6. Mysoline 100 mg p.o. q.h.s. 7. Protonix 40 mg daily. 8. Invega 150 mg IM monthly. 9. Nitrostat 0.4 mg sublingual q.5h minutes. 10.Toprol-XL 25 mg p.o. daily. 11.Imdur 30 mg p.o. daily. 12.Levemir 35 units subcu q.h.s. 13.NovoLog 7 units a.c. t.i.d. 14.Neurontin 400 mg p.o. t.i.d. 15.Vibramycin 100 mg p.o. b.i.d. 16.Digitek 125 mcg p.o. daily. 17.Cymbalta 60 mg p.o. b.i.d. 18.Plavix 75 mg. 19.Aspirin 81 mg. 20.Ventolin HFA 1-2 puffs q.6h p.r.n. ALLERGIES: MULTIPLE ALLERGIES ERYTHROMYCIN, KEFLEX, CODEINE, MECLIZINE, PENICILLIN, SHELLFISH, FISH CONTAINING PRODUCTS, IODINATED CONTRAST DYES, NAPROSYN, LIPITOR, NORCO. FAMILY HISTORY: History of CAD, myocardial infarction in the family. SOCIAL HISTORY: No history of smoking. No history of alcohol intake. REVIEW OF SYSTEMS: ENT: No diminished vision. No diminished hearing. Cardiovascular: As mentioned earlier. Respiratory: As mentioned earlier. GI: No nausea or vomiting. : No dysuria. Nervous system: No numbness or weakness. ALLERGY/IMMUNOLOGY: No asthma or hayfever. Musculoskeletal: As mentioned earlier. Constitutional: As mentioned earlier. HEMATOLOGY/ONCOLOGY: No history of anemia. ENDOCRINE: As mentioned earlier. Dermatology: Negative. Rheumatology: Negative. Psychiatry: As mentioned earlier. PHYSICAL EXAM: Patient is alert, oriented x3. The pulse is 80, blood pressure 160/64, respirations 18. Temperature 98 degrees, pulse ox 98% on 2 L. HEENT: Conjunctivae normal. Oral mucosa moist. Neck is no jugular venous distention. No carotid bruit. No lymph node enlargement. Cardiovascular systems: S1, S2 muffled. Respirations: Breath sounds diminished in the bases. A few scattered rhonchi and crackles. Expiratory wheezing also present. ABDOMEN: Soft, obese, nontender. No mass palpable. Legs: No edema. No swelling. NERVOUS SYSTEM: Higher functions as mentioned earlier. Moves all 4 limbs. No focal motor or sensory deficits. Lymphatics: No lymph nodes palpable in the neck, axillae or groin. Skin: No ulcer, rash or bleeding. Joints: No active deforming arthropathy. LAB STUDIES: WBC 5.2, hemoglobin 11.8, otherwise sodium 135, magnesium 1.5. ASSESSMENT: 1. Chest pain, possible unstable angina, possibly atypical pain. 2. Hypomagnesemia. 3. Obesity with body mass index 42. 4. History of asthma. 5. History of congestive heart failure. 6. History of cerebrovascular accident/transient ischemic attack. 7. History of ischemic cardiomyopathy. 8. Diabetes mellitus type 2. 9. History of gastroesophageal reflux disease. 10.History of coronary artery disease. 11.Gastroesophageal reflux disease. 12.Hypertension. 13.Hyperlipidemia. 14.History of myocardial infarction. 15.History of pneumonia. 16.Sleep apnea. 17.History of diabetic peripheral neuropathy. 18.AICD. 19.History of coronary artery disease/stent. 20.Biventricular pacemaker and AICD. RECOMMENDATION: In this 42-year-old gentleman who presented with multiple complex medical issues. We will monitor the patient closely. Continue the current medications, management and symptomatic treatment. Otherwise, at this time, I recommend continue current medication. We will have cardiovascular consult to rule out myocardial infarction, unstable angina protocol. Prognosis guarded because of multiple complex medical issues. Further recommendations to follow. A copy of dictation being forwarded to Dr. Junie New's office. BEATRIZ / CHRISTINEN: [id number] /
[2018-05-22] MEDS: ROSUVASTATIN PO SCH (20:44)
[2018-05-22] MEDS: PRIMIDONE 50 MG TAB PO SCH (20:44)
[2018-05-22] MEDS: HEPARIN SODIUM,PORCINE 5,000 UNIT/ML 1 ML VIAL SQ SCH (20:44)
[2018-05-22] MEDS ORDERED: DOXYCYCLINE 100 MG CAP PO SCH (21:00)
[2018-05-22 21:19] LABS: Glucose,Whole Blood 269 mg/dL (75-99)
[2018-05-22] MEDS: INSULIN DETEMIR 100 UNIT/ML 10 ML VIAL SQ SCH (21:42)
[2018-05-23 05:34] LABS: Glucose,Whole Blood 243 mg/dL (75-99)
[2018-05-23 06:43] LABS: Magnesium 1.7 mg/dL (1.6-2.3)
[2018-05-23] MEDS: GABAPENTIN 400 MG CAP PO SCH ×3 (06:47→20:17)
[2018-05-23] MEDS: INSULIN ASPART 100 UNIT/ML 1 ML 10 ML VIAL SQ SCH ×3 (06:47→17:55)
[2018-05-23] MEDS: PANTOPRAZOLE 40 MG TABLET PO SCH (08:40)
[2018-05-23] MEDS: TORSEMIDE 20 MG TAB PO SCH ×2 (08:40→17:52)
[2018-05-23] MEDS: ISOSORBIDE MONONITRATE ER 30 MG TAB.ER.24H PO SCH (08:41)
[2018-05-23] MEDS: DULoxetine HCL 60 MG CAPSULE.DR PO SCH ×2 (08:41→20:17)
[2018-05-23] MEDS: METOPROLOL SUCCINATE (ER) 25 MG TAB.ER.24H PO SCH (08:41)
[2018-05-23] MEDS: SPIRONOLACTONE 25 MG TAB PO SCH (08:41)
[2018-05-23] MEDS: ASPIRIN 325 MG TAB PO SCH (08:41)
[2018-05-23] MEDS: HEPARIN SODIUM,PORCINE 5,000 UNIT/ML 1 ML VIAL SQ SCH ×2 (08:41→20:05)
[2018-05-23] MEDS: CLOPIDOGREL 75 MG TAB PO SCH (08:41)
[2018-05-23] MEDS: DIGOXIN 125 MCG TAB PO SCH (08:41)
[2018-05-23 11:17] LABS: Glucose,Whole Blood 181 mg/dL (75-99)
--- NOTE | 2018-05-23 16:11 | P.CNNES ---
History of Present Illness Consult date: 05/23/18 History of Present Illness: The patient is a 42-year-old right-handed white male admitted to the hospital with left-sided chest pain with radiation to the left arm and neck. The patient gives a history of having had some right-sided symptoms 1 week ago and was seen at both at [facility] emergency room at that time and given TPA and transferred to [facility] in [place]. He states he was there for 4 days and discharged to [facility]. Symptoms consisted of right arm and leg weakness and slight speech disturbance. The patient has multiple medical problems including coronary artery artery disease and diabetes DVT hypertension hyperlipidemia SD AICD congestive heart failure. The patient states in terms of his stroke symptoms he has improved significantly. He wishes to go home. When asked about the testing done for his stroke he states he has not had a carotid ultrasound. The patient has some history of occipital headaches as well. He is scheduled for possible nerve block at the pain clinic in May. Review of Systems Constitutional: Reports as per HPI Ears, nose, mouth and throat: Denies headache, Denies sore throat Cardiovascular: Denies chest pain, Denies shortness of breath Respiratory: Denies cough Gastrointestinal: Denies abdominal pain, Denies diarrhea, Denies nausea, Denies vomiting Musculoskeletal: Reports as per HPI Integumentary: Denies pruritus, Denies rash Neurological: Reports as per HPI Psychiatric: Reports as per HPI Past Medical History Past Medical History: Asthma, Coronary Artery Disease (CAD), Chest Pain / Angina , Heart Failure, CVA/TIA, Diabetes Mellitus, Deep Vein Thrombosis (DVT), GERD/ Reflux, Hyperlipidemia, Hypertension, Myocardial Infarction (SD), Osteoarthritis (OA), Pneumonia, Skin Disorder, Sleep Apnea/CPAP/BIPAP Additional Past Medical History / Comment(s): multiple vessel CAD, ischemic cardiomyopathy, diabetic neuropathy bilateral hands and feet, hypertensive cardiovascular disease, SHELIA with no device, chronic gastritis, degenerative disc disease, chronic back pain, depression with hx of suicide attempts, gastroparesis, psoriasis, UTI, migraines, TIA, PUD, hiatal hernia, L rotator cuff tear, bronchitis, pseudoaneurysm L groin post procedure. 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 Last Myocardial Infarction Date:: October 2017 History of Any Multi-Drug Resistant Organisms: MRSA Date of last positivie culture/infection: 11/05/2017 (Culture done at [facility]) MDRO Source:: legs Past Surgical History: AICD, Appendectomy, Cholecystectomy, Heart Catheterization With Stent, Hernia Repair Additional Past Surgical History / Comment(s): Pt has had multiple cardiac procedures- caths/stents/PTCA, last stent placed at [facility] -October2017, S[place]AN[place]H, R inguinal hernia repair, umbilical hernia repair, right orchiectomy due to necrosis, right hand surgery r/t injury, colonoscopy, cystoscopy (scraped bladder parrish), stents 10/2017, Past Anesthesia/Blood Transfusion Reactions: No Reported Reaction Additional Past Anesthesia/Blood Transfusion Reaction / Comment(s): . Date of Last Stent Placement:: 10/2017 Type of Cardiac Device: Biventricular Pacemaker, AICD Device Placement Date:: 09/19/15 Past Psychological History: Anxiety, Depression, PTSD Additional Psychological History / Comment(s): Several suicide attempts with use of insulin. PTSD - in 2000 his 3mo old son in his arms (born 2 months premature). Pt states he is currently suicidal and wishes he were . He has a walker at home if needed. He drives.pt has 2 adult stepchildren at home with him most of the time. Spouse manages his medications. He is on a 1500 cc fluid restriction. Smoking Status: Never smoker Past Alcohol Use History: None Reported Additional Past Alcohol Use History / Comment(s): Past alcohol abuse - pt states he quit drinking over 8yrs ago. Past Drug Use History: None Reported Additional Drug Use History / Comment(s): Pt has smoked marijuana in the past - last smoked in 1999. - Past Family History Mother Family Medical History: Coronary Artery Disease (CAD), Myocardial Infarction (SD ) Additional Family Medical History / Comment(s): 7 SD and faulty heart valve. Pt does not know the age when mother had her SD's. Father History Unknown: Yes Additional Family Medical History / Comment(s): Does not know who father is. Brother(s) Family Medical History: Cancer, Congestive Heart Failure (CHF), Myocardial Infarction (SD) Additional Family Medical History / Comment(s): Parkinsons. Pt does not know at what age his brother had an SD. Patient's other brother has lung CA Patient has Family Medical History: No Reported History Additional Family Medical History / Comment(s): There is a strong family history for heart disease, hypertension, and diabetes. Medications and Allergies Home Medications Medication Instructions Recorded Confirmed Type Clopidogrel [Plavix] 75 mg PO DAILY@0800 12/03/17 05/22/18 History Metoprolol Succinate [Toprol XL] 25 mg PO DAILY@0800 12/03/17 05/22/18 History Rosuvastatin [Crestor] 40 mg PO HS@2100 12/30/17 05/22/18 History Digoxin [Digitek] 125 mcg PO DAILY@0800 02/01/18 05/22/18 History Gabapentin [Neurontin] 400 mg PO TID@0600,1400,2100 02/01/18 05/22/18 History Spironolactone [Aldactone] 25 mg PO DAILY@0800 02/01/18 05/22/18 History Torsemide [Demadex] 40 mg PO BID 02/01/18 05/22/18 History Aspirin 81 mg PO DAILY chew 02/03/18 05/22/18 Rx Albuterol Inhaler [Ventolin Hfa 2 puff INHALATION RT-Q6H PRN 04/01/18 05/22/18 History Inhaler] Pantoprazole [Protonix] 40 mg PO DAILY 04/01/18 05/22/18 History Primidone [Mysoline] 100 mg PO HS 04/01/18 05/22/18 History Nitroglycerin Sl Tabs [Nitrostat] 0.4 mg SUBLINGUAL Q5M PRN tab 04/09/18 Rx hydrOXYzine PAMOATE [Vistaril] 50 mg PO TID PRN #45 capsule 04/13/18 05/22/18 Rx traMADol HCl [Ultram] 50 mg PO Q6H PRN tab 04/13/18 05/22/18 Rx Insulin Aspart [NovoLOG 7 unit SQ AC-TID #0 04/24/18 05/22/18 Rx (formulary)] Insulin Detemir [Levemir] 35 unit SQ HS #0 04/24/18 05/22/18 Rx Isosorbide Mononitrate ER [Imdur] 30 mg PO DAILY tab.er.24h 04/24/18 05/22/18 Rx Paliperidone IM [Invega Sustenna] 156 mg IM QMONTH 05/02/18 05/22/18 History DULoxetine HCL [Cymbalta] 60 mg PO BID capsule. 05/10/18 05/22/18 Rx Doxycycline [Vibramycin] 100 mg PO BID #3 cap 05/10/18 05/22/18 Rx Allergies Allergy/AdvReac Type Severity Reaction Status Date / Time erythromycin base Allergy Severe Rash/Hives Verified 05/22/18 07:14 [Erythromycin Base] cephalexin monohydrate Allergy Unknown Rash/Hives Verified 05/22/18 07:14 [From Keflex] codeine Allergy Unknown Unknown Verified 05/22/18 07:14 meclizine Allergy Unknown Unknown Verified 05/22/18 07:14 Penicillins Allergy Unknown Rash/Hives Verified 05/22/18 07:14 shellfish derived Allergy Unknown Anaphylaxis Verified 05/22/18 07:14 Fish Containing Products Allergy Anaphylaxis Verified 05/22/18 07:14 [Fish] Iodinated Contrast- Oral and Allergy Anaphylaxis Verified 05/22/18 07:14 IV Dye naproxen AdvReac Unknown Compromises Verified 05/22/18 07:14 Kidney Function atorvastatin calcium AdvReac Myalgia Verified 05/22/18 07:14 [From Lipitor] hydrocodone [From [place]] AdvReac Rapid Verified 05/22/18 07:14 Heart Rate Physical Examination - Vital Signs Vital Signs: Vital Signs Temp Pulse Pulse Resp BP Pulse Ox 05/23/18 15:40 80 86 18 05/23/18 12:00 98.9 F 80 80 18 126/79 96 05/23/18 08:00 97.7 F 80 76 18 132/61 92 L 05/23/18 04:00 97.8 F 86 18 102/67 96 05/23/18 00:00 97.7 F 84 18 99/59 96 05/22/18 20:00 98.1 F 85 18 109/65 96 05/22/18 16:00 98.0 F 80 80 18 131/71 98 Intake and Output 05/23/18 05/23/18 05/23/18 06:59 14:59 22:59 Intake Total 222 Balance 222 Intake: Oral 222 Other: Voiding Method Toilet Toilet Toilet Urinal Urinal Urinal # Voids 1 Weight 113.6 kg - Constitutional General appearance: obese - Respiratory Respiratory: lungs clear - Cardiovascular Cardiovascular: regular rate, normal S1, normal S2 - Neurologic Neurologic examination: Mental status: He was awake alert and oriented. There was no a aphasia or dysarthria. Cranial nerve examination: Cranial nerves II through XII grossly intact next Motor examination: No focal weakness next her graft sensory examination: Intact to light touch Coordination: Intact next Gait: Not tested Results - Laboratory Findings CBC and BMP: 05/22/18 01:15 05/22/18 01:15 Abnormal Lab Findings: Abnormal Labs 05/22/18 05/22/18 05/22/18 01:15 01:15 06:05 Hgb 11.8 L Hct 37.3 L RDW 17.3 H Plt Count 144 L Sodium 135 L BUN 26 H Glucose 184 H POC Glucose (mg/dL) 141 H Magnesium 1.5 L Alkaline Phosphatase 133 H Total Protein 5.6 L Albumin 3.0 L HDL Cholesterol Amylase <30 L 05/22/18 05/22/18 05/22/18 07:09 16:43 21:17 Hgb Hct RDW Plt Count Sodium BUN Glucose POC Glucose (mg/dL) 182 H 269 H Magnesium 1.5 L Alkaline Phosphatase Total Protein Albumin HDL Cholesterol Amylase 05/23/18 05/23/18 05/23/18 05:32 06:00 11:16 Hgb Hct RDW Plt Count Sodium BUN Glucose POC Glucose (mg/dL) 243 H 181 H Magnesium Alkaline Phosphatase Total Protein Albumin HDL Cholesterol 35 L Amylase Assessment and Plan (1) Atypical chest pain Current Visit: Yes Status: Acute Code(s): R07.89 - OTHER CHEST PAIN SNOMED Code(s): 644055035 (2) History of recent stroke Current Visit: Yes Status: Acute SNOMED Code(s): 575135274 (3) Occipital neuralgia of right side Current Visit: Yes Status: Acute SNOMED Code(s): 73933118 Plan: The patient is a 42-year-old man with multiple medical problems who recently had a stroke last week. The patient is admitted to the hospital with chest pain. The patient reports that his recent consisted of right-sided weakness which has ,for the most part ,resolved, after receiving TPA. He is currently at [facility] for physical therapy and rehab. Patient has a history of occipital headaches. He does have some occipital notch tenderness on the right. He was advised that occipital nerve block may be beneficial and he states he is already scheduled to see a pain specialist in May. Will try and obtain CT angiogram report from [facility] which will may have been done last week. We'll do follow-up CT brain .The patient is.currently on Plavix and aspirin therapy. He has not had any new events.
--- NOTE | 2018-05-23 17:17 | CT ---
EXAMINATION TYPE: CT brain wo con DATE OF EXAM: 05/23/2018 COMPARISON: 05/05/2018 HISTORY: Recent stroke with right sided weakness. CT DLP: 1099.4 mGycm. Automated Exposure Control for Dose Reduction was Utilized. TECHNIQUE: CT scan of the head is performed without contrast. FINDINGS: There is cerebral cortical atrophy. There is mild cortical hypodensity in both posterior frontal lobes. There is no midline shift. There is no sign of intracranial hemorrhage. The calvarium is intact. IMPRESSION: Cerebral atrophy. Symmetric posterior frontal lobe white matter hypodensity consistent with chronic i schemia unchanged. No acute intracranial abnormality.
--- NOTE | 2018-05-23 17:51 | PN ---
PROGRESS NOTE DATE OF SERVICE: 05/23/2018. HISTORY OF PRESENT ILLNESS: This 42-year-old gentleman who was admitted with significant chest pain also recently had acute stroke which was evaluated at [facility], but subsequently patient was given IV tPA and patient was transferred to [facility]. From the [facility], the patient was transferred to [facility] where the patient spent only 1 day before coming to the hospital. Cardiology is following the patient closely at this time. Cardiac enzymes are negative. There is no history of fever, rigors or chills. PAST MEDICAL HISTORY: Reviewed. REVIEW OF SYSTEMS: CARDIOVASCULAR: No angina or palpitations. RESPIRATION: As mentioned earlier. GI: No nausea or vomiting. : No dysuria. Central nervous system: As mentioned earlier. CURRENT MEDICATIONS ARE: Reviewed and include: 1. Ventolin 2.5 q.6h p.r.n. 2. Aspirin 320 mg daily. 3. Plavix 75 mg daily. 4. Lanoxin 125 mcg. 5. Cymbalta 60 mg b.i.d. 6. Neurontin 400 mg t.i.d. 7. Heparin 5000 subcu b.i.d. 8. Restoril 15 mg t.i.d. p.r.n. 9. NovoLog scale. 10.Levemir 35 subcu q.h.s. 11.Imdur 30 mg p.o. daily. 12.Toprol-XL 25 mg. 13.Magnesium. 14.Crestor. 15.Nitrostat. 16.Protonix. 17.Aldactone. 18.Demadex. 19.Ultram. PHYSICAL EXAM: Patient is alert, oriented x3. Pulse 80, blood pressure , respirations 18. The temperature is 98.9, pulse ox 96% on room air. HEENT: Conjunctivae normal. NECK: No jugular venous distention. CARDIOVASCULAR: S1, S2. RESPIRATIONS: Breath sounds diminished at the bases. A few rhonchi. No crackles. ABDOMEN: Soft, nontender. Legs are no edema. No swelling. CENTRAL NERVOUS SYSTEM: Mild diffuse weakness. No focal weakness noted. SKIN: No ulcers, rashes or bleeding. JOINTS: No active deforming arthropathy. LAB: HDL is 35, otherwise glucose noted. WBC 5.1, hemoglobin 11.1. ASSESSMENT: 1. Chest pain possible unstable angina possibly atypical chest pain, improving. 2. History of recent stroke involving the right side, status post tPA and evaluation at the [facility]. 3. Hypomagnesemia. 4. Obesity with body mass index 42. 5. History of asthma. 6. History of congestive heart failure. 7. History of cerebrovascular accident, transient ischemic attack. 8. History of ischemic cardiomyopathy. 9. Diabetes type 2. 10.History of gastroesophageal reflux disease. 11.History of coronary artery disease. 12.History of hypertension. 13.Hyperlipidemia. 14.History of myocardial infarction. 15.History of pneumonia. 16.Obstructive sleep apnea. 17.History of diabetic peripheral neuropathy. 18.History of AICD. 19.History of coronary artery disease, stent. RECOMMENDATIONS AND DISCUSSION: Recommend to continue current medications, management and symptomatic treatment. Otherwise, monitor blood pressures closely. Otherwise, I would also recommend obtain Neurology evaluation because of incidence of recent tPA administration and acute stroke. We will continue to monitor. Strongly recommend the patient to go back to [facility] for continued rehab, but however the patient wants to go home at this time. We will continue to monitor as mentioned earlier. Continue the current medications. The patient has multiple other sclerotic vascular disorders. MMODL / IJN: [id number] /
[2018-05-23] MEDS: ROSUVASTATIN PO SCH (20:09)
[2018-05-23] MEDS: PRIMIDONE 50 MG TAB PO SCH (20:17)
[2018-05-23 20:19] LABS: Glucose,Whole Blood 167 mg/dL (75-99)
[2018-05-23] MEDS: INSULIN DETEMIR 100 UNIT/ML 10 ML VIAL SQ SCH (20:42)
[2018-05-23] MEDS: traMADol 50 MG TAB PO PRN (23:00)
[2018-05-24 06:10] LABS: Glucose,Whole Blood 281 mg/dL (75-99)
[2018-05-24] MEDS: GABAPENTIN 400 MG CAP PO SCH (06:27)
[2018-05-24] MEDS: INSULIN ASPART 100 UNIT/ML 1 ML 10 ML VIAL SQ SCH ×4 (07:09→12:27)
[2018-05-24] MEDS: METOPROLOL SUCCINATE (ER) 25 MG TAB.ER.24H PO SCH (09:45)
[2018-05-24] MEDS: DIGOXIN 125 MCG TAB PO SCH (09:45)
[2018-05-24] MEDS: PANTOPRAZOLE 40 MG TABLET PO SCH (09:45)
[2018-05-24] MEDS: TORSEMIDE 20 MG TAB PO SCH (09:45)
[2018-05-24] MEDS: CLOPIDOGREL 75 MG TAB PO SCH (09:45)
[2018-05-24] MEDS: ISOSORBIDE MONONITRATE ER 30 MG TAB.ER.24H PO SCH (09:45)
[2018-05-24] MEDS: ASPIRIN 325 MG TAB PO SCH (09:45)
[2018-05-24] MEDS: DULoxetine HCL 60 MG CAPSULE.DR PO SCH (09:45)
[2018-05-24] MEDS: HEPARIN SODIUM,PORCINE 5,000 UNIT/ML 1 ML VIAL SQ SCH (09:46)
[2018-05-24] MEDS: SPIRONOLACTONE 25 MG TAB PO SCH (09:46)
[2018-05-24 11:16] VITALS: PULSE 80; TEMP 97.6
[2018-05-24 11:59] LABS: Glucose,Whole Blood 145 mg/dL (75-99)
[2018-05-24] MEDS: traMADol 50 MG TAB PO PRN (12:24)
[2018-05-24 12:51] VITALS: BP 118/77
--- NOTE | 2018-05-25 08:44 | DS ---
DISCHARGE SUMMARY DATE OF SERVICE: 05/24/2018 FINAL DIAGNOSES: 1. Chest pain possible unstable angina with atypical chest pain, improved. 2. History of recent stroke involving the right side, status post TpA and evaluation at [facility]. 3. Hypomagnesemia. 4. Obesity with body mass index 42. 5. History of asthma. 6. History of congestive heart failure. 7. History of cerebrovascular accident, transient ischemic attack. 8. History of ischemic cardiomyopathy. 9. Diabetes type 2. 10.Gastroesophageal reflux disease. 11.History of coronary artery disease. 12.Hypertension. 13.Hyperlipidemia. 14.History of myocardial infarction. 15.History of pneumonia. 16.Sleep apnea. 17.History of diabetic peripheral neuropathy. 18.History of AICD. 19.History of coronary artery disease/stent. DISCHARGE DISPOSITION: The patient is being discharged in stable condition with guarded prognosis. Total time taken: 35 minutes. HISTORY OF PRESENT ILLNESS: This 42-year-old gentleman with a past medical history of multiple medical problems was recently admitted to [facility] with a stroke. The patient subsequently had TpA and referred to [facility] and subsequently admitted from there with complaints of chest pain. Myocardial infarction ruled out. Cardiology saw the patient and recommended no further workup. On exam, vitals are stable. Cardiovascular S1, S2. Abdomen soft. Nervous system: No focal deficits. The patient was also evaluated by Dr. Song Joyce. Currently at this time the patient did [facility] The patient is able to ambulate. The field nurse case manager and psychiatric social worker supervisor are aware and Dr. Joyce cleared the patient for discharge and the patient discharged to home with the following advice and medications: 1. Diet is cardiac diet. 2. Activity limited until followup. 3. Follow up with the primary physician, Dr. Junie New in 2-3 days. 4. Follow up with Cardiology as advised. 5. Follow up with neurology as recommended. DISCHARGE MEDICATIONS: 1. Albuterol 2 puffs q.6h p.r.n. 2. Plavix 75 mg p.o. daily. 3. Digitek 120 mcg p.o. daily. 4. Neurontin 400 mg p.o. t.i.d. 5. Toprol-XL 25 mg p.o. daily. 6. Invega 150 mg IM q.month. 7. Protonix 40 mg. 8. Mysoline 100 mg q.h.s. 9. Crestor 40 mg q.h.s. 10.Aldactone 25 mg daily. 11.Demadex 40 mg p.o. b.i.d. 12.Aspirin 81 mg p.o. daily. 13.Vibramycin 100 mg p.o. b.i.d. for 3 more days. 14.Cymbalta 60 mg p.o. b.i.d. 15.Vistaril 50 mg t.i.d. p.r.n. 16.Insulin as before 7 units a.c. t.i.d. and 33 units subcu q.h.s. 17.Levemir. 18.Imdur 30 mg p.o. daily. 19.Nitrostat p.r.n. 20.Ultram 50 mg q.6h p.r.n. Once again, the patient is being discharged in stable condition with guarded prognosis. MMAMBROSEL / CHRISTINEN: [id number] / ARMAND
== END 2018-05-24 14:30 | disposition home or self-care (01) ==
LOC: EC 23:41 → 3SCARD 05-22 04:48
PROVIDERS: ADMIT Hospitalist; ATTEND Hospitalist
DX: R07.89 Other chest pain (principal); J45.909 Unspecified asthma, uncomplicated; I25.10 Atherosclerotic heart disease of native coronary artery without angina pectoris; I50.9 Heart failure, unspecified; Z86.718 Personal history of other venous thrombosis and embolism; I25.5 Ischemic cardiomyopathy; E66.9 Obesity, unspecified; Z68.41 Body mass index [BMI] 40.0-44.9, adult; E11.42 Type 2 diabetes mellitus with diabetic polyneuropathy; E83.42 Hypomagnesemia; G47.30 Sleep apnea, unspecified; E78.5 Hyperlipidemia, unspecified; F43.10 Post-traumatic stress disorder, unspecified; G47.33 Obstructive sleep apnea (adult) (pediatric); I11.0 Hypertensive heart disease with heart failure; I25.2 Old myocardial infarction; K21.9 Gastro-esophageal reflux disease without esophagitis; F32.9 Major depressive disorder, single episode, unspecified; E11.43 Type 2 diabetes mellitus with diabetic autonomic (poly)neuropathy; K31.84 Gastroparesis; L40.9 Psoriasis, unspecified; Z87.440 Personal history of urinary (tract) infections; Z87.11 Personal history of peptic ulcer disease; Z98.890 Other specified postprocedural states; R45.851 Suicidal ideations; M54.81 Occipital neuralgia; Z95.810 Presence of automatic (implantable) cardiac defibrillator; Z90.49 Acquired absence of other specified parts of digestive tract; Z79.02 Long term (current) use of antithrombotics/antiplatelets; Z79.82 Long term (current) use of aspirin; Z79.4 Long term (current) use of insulin; Z79.899 Other long term (current) drug therapy; Z86.14 Personal history of Methicillin resistant Staphylococcus aureus infection; Z88.8 Allergy status to other drugs, medicaments and biological substances; Z88.1 Allergy status to other antibiotic agents; Z91.041 Radiographic dye allergy status; Z88.5 Allergy status to narcotic agent; Z88.0 Allergy status to penicillin; Z91.013 Allergy to seafood; Z86.73 Personal history of transient ischemic attack (TIA), and cerebral infarction without residual deficits; Z87.01 Personal history of pneumonia (recurrent); Z95.5 Presence of coronary angioplasty implant and graft; Z83.3 Family history of diabetes mellitus; Z82.0 Family history of epilepsy and other diseases of the nervous system; Z82.49 Family history of ischemic heart disease and other diseases of the circulatory system
CPT/HCPCS: 96365; 96366; 96372 ×2; 96375; 99285; 36415; 93005; 97161; 97165; 80061; 80053; 82150; 82550; 82553; 83690; 83735 ×2; 84484; 85025; 85610; 85730; 71046; 70450; G0378 ×3; J2270 ×2; J1644 ×2; J3475

== ENCOUNTER 2018-05-26 15:31 | Observation (INO) | payer MEDICARE, OTHER ==
[2018-05-26] MEDS ORDERED: SODIUM CHLORIDE 0.9% 500 ML 500 ML IV STA (16:07)
[2018-05-26] MEDS ORDERED: SODIUM CHLORIDE 0.9% 1,000 ML IV STA ×2 (16:07→16:22)
[2018-05-26 16:45] LABS: Anisocytosis Slight; Appearance,Urine Clear (Clear); Basophils % (A) 1 %; Bilirubin,Urine Negative (Negative); Blood,Urine Negative (Negative); Color,Urine Light Yellow; Eosinophils # (A) 0.2 k/uL (0-0.7); Eosinophils % (A) 4 %; Glucose,Urine (UA) Negative (Negative); HCT 43.7 % (39.0-53.0); HGB 13.6 gm/dL (13.0-17.5); Hypochromasia Slight; Ketones,Urine Negative (Negative); Leukocyte Esterase,Urine Negative (Negative); Lymphocytes # (A) 0.7 k/uL (1.0-4.8); Lymphocytes % (A) 18 %; MCV 83.8 fL (80.0-100.0); Monocytes # (A) 0.2 k/uL (0-1.0); Monocytes % (A) 5 %; Neutrophils # (A) 2.7 k/uL (1.3-7.7); Neutrophils % (A) 71 %; Nitrite,Urine Negative (Negative); PH, Urine 5.5 (5.0-8.0); Platelet Count 145 k/uL (150-450); Protein,Urine Negative (Negative); RBC 5.21 m/uL (4.30-5.90); RDW 16.6 % (11.5-15.5); Specific Gravity,Urine 1.005 (1.001-1.035); Urobilinogen,Urine <2.0 mg/dL (<2.0); WBC 3.8 k/uL (3.8-10.6)
[2018-05-26 16:55] LABS: ALT 35 U/L (21-72); AST 31 U/L (17-59); Albumin 3.1 g/dL (3.5-5.0); Alkaline Phosphatase 131 U/L (38-126); Anion Gap 7 mmol/L; Blood Urea Nitrogen 41 mg/dL (9-20); Carbon Dioxide 30 mmol/L (22-30); Chloride 97 mmol/L (98-107); Glucose 161 mg/dL (74-99); Magnesium 1.7 mg/dL (1.6-2.3); Phosphorus 4.2 mg/dL (2.5-4.5); Potassium 4.5 mmol/L (3.5-5.1); Sodium 134 mmol/L (137-145); Total Bilirubin 0.6 mg/dL (0.2-1.3); Total Protein 5.7 g/dL (6.3-8.2)
[2018-05-26 17:07] LABS: INR 1.1 (<1.2); Partial Thromboplastin Time 22.8 sec (22.0-30.0); Prothrombin Time 11.1 sec (9.0-12.0)
[2018-05-26 17:25] LABS: Creatine Kinase MB 1.9 ng/mL (0.0-2.4); Troponin I 0.025 ng/mL (0.000-0.034)
--- NOTE | 2018-05-26 18:20 | ED ---
Weakness HPI - General Chief complaint: Weakness Stated complaint: dizziness, nausea Time Seen by Provider: 05/26/18 15:44 Source: EMS, RN notes reviewed, old records reviewed Mode of arrival: EMS Limitations: no limitations - History of Present Illness Initial comments: This is a 42-year-old male to the ER for evaluation. Patient is competent and chronic medical history. Underlying psychiatric illness with multiple medical comorbidities. Patient did receive outpatient evaluation earlier today is his third one every day prior problems. Patient states that he feels like there is a lot of pain and a lot of weight pushing down on pushing on his chest. He feels weak. He does have again, can recent medical history of CVA stroke receiving TPA. And a cardiac history. Patient denies any fevers no nausea vomiting or diarrhea. He is feels a currently week. No other recent change in medications MD Complaint: generalized weakness -: days(s) Location: generalized Severity: mild Severity scale (1-10): 2 Quality: dull Consistency: constant Improves with: none Worsens with: none Context: new medication (Integument shot this is his third one) Associated Symptoms: chest pain, loss of appetite, nausea/vomiting, myalgias - Related Data Home Medications Medication Instructions Recorded Confirmed Clopidogrel [Plavix] 75 mg PO HS 12/03/17 05/26/18 Metoprolol Succinate [Toprol XL] 25 mg PO DAILY@0800 12/03/17 05/26/18 Rosuvastatin [Crestor] 40 mg PO HS@2100 12/30/17 05/26/18 Digoxin [Digitek] 125 mcg PO DAILY@0802/01/18 05/26/18 Gabapentin [Neurontin] 400 mg PO TID@0600,1400,209902/01/18 05/26/18 Spironolactone [Aldactone] 25 mg PO DAILY@0800 02/01/18 05/26/18 Torsemide [Demadex] 40 mg PO BID 02/01/18 05/26/18 Albuterol Inhaler [Ventolin Hfa 2 puff INHALATION RT-Q6H PRN 04/01/18 05/26/18 Inhaler] Pantoprazole [Protonix] 40 mg PO DAILY 04/01/18 05/26/18 Primidone [Mysoline] 100 mg PO BID 04/01/18 05/26/18 Paliperidone IM [Invega Sustenna] 156 mg IM Q30D 05/02/18 05/26/18 Previous Rx's Medication Instructions Recorded Aspirin 81 mg PO DAILY chew 02/03/18 Nitroglycerin Sl Tabs [Nitrostat] 0.4 mg SUBLINGUAL Q5M PRN tab 04/09/18 hydrOXYzine PAMOATE [Vistaril] 50 mg PO TID PRN #45 capsule 04/13/18 traMADol HCl [Ultram] 50 mg PO Q6H PRN tab 04/13/18 Insulin Aspart [NovoLOG 7 unit SQ AC-TID #0 04/24/18 (formulary)] Insulin Detemir [Levemir] 35 unit SQ HS #0 04/24/18 Isosorbide Mononitrate ER [Imdur] 30 mg PO DAILY tab.er.24h 04/24/18 DULoxetine HCL [Cymbalta] 60 mg PO BID capsule. 05/10/18 Allergies Allergy/AdvReac Type Severity Reaction Status Date / Time erythromycin base Allergy Severe Rash/Hives Verified 05/26/18 16:08 [Erythromycin Base] cephalexin monohydrate Allergy Unknown Rash/Hives Verified 05/26/18 16:08 [From Keflex] codeine Allergy Unknown Unknown Verified 05/26/18 16:08 meclizine Allergy Unknown Unknown Verified 05/26/18 16:08 Penicillins Allergy Unknown Rash/Hives Verified 05/26/18 16:08 shellfish derived Allergy Unknown Anaphylaxis Verified 05/26/18 16:08 Fish Containing Products Allergy Anaphylaxis Verified 05/26/18 16:08 [Fish] Iodinated Contrast- Oral and Allergy Anaphylaxis Verified 05/26/18 16:08 IV Dye naproxen AdvReac Unknown Compromises Verified 05/26/18 16:08 Kidney Function atorvastatin calcium AdvReac Myalgia Verified 05/26/18 16:08 [From Lipitor] hydrocodone [From [place]] AdvReac Rapid Verified 05/26/18 16:08 Heart Rate Review of Systems ROS Statement: Those systems with pertinent positive or pertinent negative responses have been documented in the HPI. ROS Other: All systems not noted in ROS Statement are negative. Past Medical History Past Medical History: Asthma, Coronary Artery Disease (CAD), Chest Pain / Angina , Heart Failure, CVA/TIA, Diabetes Mellitus, Deep Vein Thrombosis (DVT), GERD/ Reflux, Hyperlipidemia, Hypertension, Myocardial Infarction (PR), Osteoarthritis (OA), Pneumonia, Skin Disorder, Sleep Apnea/CPAP/BIPAP Additional Past Medical History / Comment(s): multiple vessel CAD, ischemic cardiomyopathy, diabetic neuropathy bilateral hands and feet, hypertensive cardiovascular disease, SHELIA with no device, chronic gastritis, degenerative disc disease, chronic back pain, depression with hx of suicide attempts, gastroparesis, psoriasis, UTI, migraines, TIA, PUD, hiatal hernia, L rotator cuff tear, bronchitis, pseudoaneurysm L groin post procedure. 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 Last Myocardial Infarction Date:: October 2017 History of Any Multi-Drug Resistant Organisms: MRSA Date of last positivie culture/infection: 11/05/2017 (Culture done at [facility]) MDRO Source:: legs Past Surgical History: AICD, Appendectomy, Cholecystectomy, Heart Catheterization With Stent, Hernia Repair Additional Past Surgical History / Comment(s): Pt has had multiple cardiac procedures- caths/stents/PTCA, last stent placed at [facility] -October2017, S[place]AN[place]H, R inguinal hernia repair, umbilical hernia repair, right orchiectomy due to necrosis, right hand surgery r/t injury, colonoscopy, cystoscopy (scraped bladder parrish), stents 10/2017, Past Anesthesia/Blood Transfusion Reactions: No Reported Reaction Additional Past Anesthesia/Blood Transfusion Reaction / Comment(s): . Date of Last Stent Placement:: 10/2017 Type of Cardiac Device: Biventricular Pacemaker, AICD Device Placement Date:: 09/19/15 Past Psychological History: Anxiety, Depression, PTSD Smoking Status: Never smoker Past Alcohol Use History: None Reported Past Drug Use History: None Reported - Past Family History Mother Family Medical History: Coronary Artery Disease (CAD), Myocardial Infarction (PR ) Additional Family Medical History / Comment(s): 7 PR and faulty heart valve. Pt does not know the age when mother had her PR's. Father History Unknown: Yes Additional Family Medical History / Comment(s): Does not know who father is. Brother(s) Family Medical History: Cancer, Congestive Heart Failure (CHF), Myocardial Infarction (PR) Additional Family Medical History / Comment(s): Parkinsons. Pt does not know at what age his brother had an PR. Patient's other brother has lung CA Patient has Family Medical History: No Reported History Additional Family Medical History / Comment(s): There is a strong family history for heart disease, hypertension, and diabetes. General Exam Limitations: no limitations General appearance: alert, in no apparent distress, lethargic Head exam: Present: atraumatic, normocephalic, normal inspection Eye exam: Present: normal appearance, PERRL, EOMI. Absent: scleral icterus, conjunctival injection, periorbital swelling ENT exam: Present: normal exam, mucous membranes moist Neck exam: Present: normal inspection. Absent: tenderness, meningismus, lymphadenopathy Respiratory exam: Present: normal lung sounds bilaterally. Absent: respiratory distress, wheezes, rales, rhonchi, stridor Cardiovascular Exam: Present: regular rate, normal rhythm, normal heart sounds. Absent: systolic murmur, diastolic murmur, rubs, gallop, clicks GI/Abdominal exam: Present: soft, normal bowel sounds. Absent: distended, tenderness, guarding, rebound, rigid Extremities exam: Present: normal inspection, full ROM, normal capillary refill. Absent: tenderness, pedal edema, joint swelling, calf tenderness Back exam: Present: normal inspection Neurological exam: Present: alert, oriented X3, CN II-XII intact Psychiatric exam: Present: normal affect, normal mood Skin exam: Present: warm, dry, intact, normal color. Absent: rash Course Vital Signs 05/26/18 05/26/18 05/26/18 15:47 15:53 16:00 Temperature 98.4 F Pulse Rate 71 Respiratory 18 Rate Blood Pressure 96/60 96/60 96/60 O2 Sat by Pulse 98 95 94 L Oximetry 05/26/18 05/26/18 05/26/18 16:10 16:20 16:30 Temperature Pulse Rate Respiratory Rate Blood Pressure 89/59 89/59 89/59 O2 Sat by Pulse 94 L 97 97 Oximetry 05/26/18 05/26/18 05/26/18 16:40 16:50 17:00 Temperature Pulse Rate Respiratory Rate Blood Pressure 98/51 89/59 89/59 O2 Sat by Pulse 96 96 96 Oximetry 05/26/18 05/26/18 05/26/18 17:10 17:20 17:30 Temperature Pulse Rate Respiratory Rate Blood Pressure 94/56 93/51 93/51 O2 Sat by Pulse 98 98 99 Oximetry 05/26/18 17:50 Temperature Pulse Rate Respiratory Rate Blood Pressure 85/53 O2 Sat by Pulse Oximetry - Reevaluation(s) Reevaluation #1: 05/26/18 18:56 Medical record is reviewed Reevaluation #2: 05/26/18 18:56 Patient has no improvement in blood pressure despite fluid challenge 05/26/18 18:56 Blood pressure prior blood pressures usually runs in the 140s systolic Reevaluation #3: 05/26/18 18:56 patient still complains of weakness and diffuse body pain EKG Findings - EKG Comments: EKG Findings:: EKG shows paced rhythm rate of 67, KS 184, QRS 74, QTC 390 Medical Decision Making - Medical Decision Making 42 male the ER for evaluation regarding persistent weakness. Patient will be admitted for pacemaker interrogation, patient does have chronic issues and chronic diseases blood patient's blood pressure is maintained low throws ER stay , despite IV fluid chance. She'll continue to receive resuscitation - Lab Data Result diagrams: 05/26/18 16:28 05/26/18 16:28 Lab Results 05/26/18 05/26/18 05/26/18 Range/Units 16:28 16:28 16:28 WBC 3.8 (3.8-10.6) k/uL RBC 5.21 (4.30-5.90) m/uL Hgb 13.6 (13.0-17.5) gm/dL Hct 43.7 (39.0-53.0) % MCV 83.8 (80.0-100.0) fL MCH 26.0 (25.0-35.0) pg MCHC 31.0 (31.0-37.0) g/dL RDW 16.6 H (11.5-15.5) % Plt Count 145 L (150-450) k/uL Neutrophils % 71 % Lymphocytes % 18 % Monocytes % 5 % Eosinophils % 4 % Basophils % 1 % Neutrophils # 2.7 (1.3-7.7) k/uL Lymphocytes # 0.7 L (1.0-4.8) k/uL Monocytes # 0.2 (0-1.0) k/uL Eosinophils # 0.2 (0-0.7) k/uL Basophils # 0.0 (0-0.2) k/uL Hypochromasia Slight Anisocytosis Slight PT (9.0-12.0) sec INR (<1.2) APTT (22.0-30.0) sec Sodium 134 L (137-145) mmol/L Potassium 4.5 (3.5-5.1) mmol/L Chloride 97 L (98-107) mmol/L Carbon Dioxide 30 (22-30) mmol/L Anion Gap 7 mmol/L BUN 41 H (9-20) mg/dL Creatinine 1.07 (0.66-1.25) mg/dL Est GFR (CKD-EPI)AfAm >90 (>60 ml/min/1.73 sqM) Est GFR (CKD-EPI)NonAf 86 (>60 ml/min/1.73 sqM) Glucose 161 H (74-99) mg/dL Calcium 9.0 (8.4-10.2) mg/dL Phosphorus 4.2 (2.5-4.5) mg/dL Magnesium 1.7 (1.6-2.3) mg/dL Total Bilirubin 0.6 (0.2-1.3) mg/dL AST 31 (17-59) U/L ALT 35 (21-72) U/L Alkaline Phosphatase 131 H (38-126) U/L Total Creatine Kinase 96 (55-170) U/L CK-MB (CK-2) 1.9 (0.0-2.4) ng/mL CK-MB (CK-2) Rel Index 2.0 Troponin I 0.025 (0.000-0.034) ng/mL Total Protein 5.7 L (6.3-8.2) g/dL Albumin 3.1 L (3.5-5.0) g/dL TSH 2.290 (0.465-4.680) mIU/L Urine Color Urine Appearance (Clear) Urine pH (5.0-8.0) Ur Specific [place] (1.001-1.035) Urine Protein (Negative) Urine Glucose (UA) (Negative) Urine Ketones (Negative) Urine Blood (Negative) Urine Nitrite (Negative) Urine Bilirubin (Negative) Urine Urobilinogen (<2.0) mg/dL Ur Leukocyte Esterase (Negative) Influenza Type A RNA (Not Detectd) Influenza Type B (PCR) (Not Detectd) 05/26/18 05/26/18 05/26/18 Range/Units 16:28 16:28 16:28 WBC (3.8-10.6) k/uL RBC (4.30-5.90) m/uL Hgb (13.0-17.5) gm/dL Hct (39.0-53.0) % MCV (80.0-100.0) fL MCH (25.0-35.0) pg MCHC (31.0-37.0) g/dL RDW (11.5-15.5) % Plt Count (150-450) k/uL Neutrophils % % Lymphocytes % % Monocytes % % Eosinophils % % Basophils % % Neutrophils # (1.3-7.7) k/uL Lymphocytes # (1.0-4.8) k/uL Monocytes # (0-1.0) k/uL Eosinophils # (0-0.7) k/uL Basophils # (0-0.2) k/uL Hypochromasia Anisocytosis PT 11.1 (9.0-12.0) sec INR 1.1 (<1.2) APTT 22.8 (22.0-30.0) sec Sodium (137-145) mmol/L Potassium (3.5-5.1) mmol/L Chloride (98-107) mmol/L Carbon Dioxide (22-30) mmol/L Anion Gap mmol/L BUN (9-20) mg/dL Creatinine (0.66-1.25) mg/dL Est GFR (CKD-EPI)AfAm (>60 ml/min/1.73 sqM) Est GFR (CKD-EPI)NonAf (>60 ml/min/1.73 sqM) Glucose (74-99) mg/dL Calcium (8.4-10.2) mg/dL Phosphorus (2.5-4.5) mg/dL Magnesium (1.6-2.3) mg/dL Total Bilirubin (0.2-1.3) mg/dL AST (17-59) U/L ALT (21-72) U/L Alkaline Phosphatase (38-126) U/L Total Creatine Kinase (55-170) U/L CK-MB (CK-2) (0.0-2.4) ng/mL CK-MB (CK-2) Rel Index Troponin I (0.000-0.034) ng/mL Total Protein (6.3-8.2) g/dL Albumin (3.5-5.0) g/dL TSH (0.465-4.680) mIU/L Urine Color Light Yellow Urine Appearance Clear (Clear) Urine pH 5.5 (5.0-8.0) Ur Specific [place] 1.005 (1.001-1.035) Urine Protein Negative (Negative) Urine Glucose (UA) Negative (Negative) Urine Ketones Negative (Negative) Urine Blood Negative (Negative) Urine Nitrite Negative (Negative) Urine Bilirubin Negative (Negative) Urine Urobilinogen <2.0 (<2.0) mg/dL Ur Leukocyte Esterase Negative (Negative) Influenza Type A RNA Not Detected (Not Detectd) Influenza Type B (PCR) Not Detected (Not Detectd) Disposition Clinical Impression: Weakness, Hypotension, Chest pain, Chronic pain Disposition: ADMITTED IP TO THIS [facility] Condition: Fair Is patient prescribed a controlled substance at d/c from ED?: No Referrals: Junie New MD [Primary Care Provider] - 1-2 days
[2018-05-26] MEDS ORDERED: NITROGLYCERIN SL TABS 0.4 MG TAB SUBLINGUAL PRN (18:52)
[2018-05-26 18:55] LABS: Glucose,Whole Blood 91 mg/dL (75-99)
[2018-05-26] MEDS: SODIUM CHLORIDE 0.9% 1,000 ML IV SCH (21:29)
[2018-05-26] MEDS ORDERED: ALBUTEROL NEBULIZED 2.5 MG/3 ML INHALATION PRN (22:16)
[2018-05-26] MEDS ORDERED: traMADol 50 MG TAB PO PRN (22:16)
[2018-05-26] MEDS ORDERED: hydrOXYzine PAMOATE 25 MG CAP PO PRN (22:16)
[2018-05-26 22:27] VITALS: BMI 39.9
[2018-05-26] MEDS ORDERED: INSULIN DETEMIR 100 UNIT/ML 10 ML VIAL SQ SCH (22:30)
[2018-05-26 22:38] LABS: Glucose,Whole Blood 235 mg/dL (75-99)
[2018-05-26 23:48] LABS: Creatine Kinase MB 1.8 ng/mL (0.0-2.4); Troponin I 0.027 ng/mL (0.000-0.034)
[2018-05-27] MEDS: SODIUM CHLORIDE 0.9% 1,000 ML IV SCH (02:12)
[2018-05-27 04:59] LABS: Anisocytosis Slight; Basophils % (A) 1 %; Eosinophils # (A) 0.2 k/uL (0-0.7); Eosinophils % (A) 5 %; HCT 36.1 % (39.0-53.0); HGB 11.4 gm/dL (13.0-17.5); Hypochromasia Moderate; Lymphocytes # (A) 1.1 k/uL (1.0-4.8); Lymphocytes % (A) 22 %; MCH 27.1 pg (25.0-35.0); MCHC 31.6 g/dL (31.0-37.0); MCV 85.6 fL (80.0-100.0); Mean Platelet Volume 7.2; Monocytes # (A) 0.2 k/uL (0-1.0); Monocytes % (A) 4 %; Neutrophils # (A) 3.3 k/uL (1.3-7.7); Neutrophils % (A) 66 %; Platelet Count 169 k/uL (150-450); RBC 4.21 m/uL (4.30-5.90); RDW 16.7 % (11.5-15.5); WBC 4.9 k/uL (3.8-10.6)
[2018-05-27 05:10] LABS: Anion Gap 10 mmol/L; Blood Urea Nitrogen 43 mg/dL (9-20); Calcium 8.6 mg/dL (8.4-10.2); Carbon Dioxide 25 mmol/L (22-30); Chloride 99 mmol/L (98-107); Cholesterol 131 mg/dL (<200); Glucose 258 mg/dL (74-99); HDL Cholesterol 40 mg/dL (40-60); LDL Cholesterol,Calculated 58 mg/dL (0-99); Potassium 4.7 mmol/L (3.5-5.1); Sodium 134 mmol/L (137-145); Triglycerides 166 mg/dL (<150)
[2018-05-27 05:32] LABS: Creatine Kinase MB 1.9 ng/mL (0.0-2.4); Troponin I 0.021 ng/mL (0.000-0.034)
[2018-05-27] MEDS ORDERED: GABAPENTIN 400 MG CAP PO SCH (06:00)
--- NOTE | 2018-05-27 06:39 | HP ---
HISTORY AND PHYSICAL CHIEF COMPLAINTS: Chest pains and generalized aches and pains. HISTORY OF PRESENT ILLNESS: This 42-year-old gentleman with a past medical history of multiple medical problems including history of obesity, history of asthma, CHF, history of CVA, TIA, history of cardiomyopathy, history of GERD, diabetes mellitus type 2, being followed by Dr. Junie New in the outpatient setting recently admitted with chest pain. The patient improved significantly, patient went home. The patient also had a recent stroke which was treated with tPA in [facility], subsequently sent to [facility] and subsequently patient was sent to [facility] but the patient refused to go back to [facility], patient wanted to go home and the patient went home and currently the patient is complaining of diffuse aches and pains and as well as dizziness, weakness, nausea, and some chest pains also. The patient came to [facility] admitted for further evaluation and treatment. During the recent admission, cardiac workup. Cardiology workup at this time. There is no history of any fever or rigors. No history of headache loss of consciousness or seizures at this time. PAST MEDICAL HISTORY: History of CHF, history of CAD, history of CVA, TIA, history of diabetes, DVT, history hypertension, hyperlipidemia, myocardial infarction, pneumonia, sleep apnea. MEDICATIONS: Home medications are: 1. Ultram 50 mg q.6 p.r.n. 2. Vistaril 50 mg t.i.d. p.r.n. 3. Crestor 40 mg q.h.s. 4. Levemir 35 units subcutaneous q.h.s. 5. Plavix 75 mg daily. 6. Ventolin 2 puffs q.6 p.r.n. 7. Demadex 40 mg b.i.d. 8. Aldactone 25 mg daily. 9. Mysoline 100 mg p.o. b.i.d. 10.Protonix 40 mg p.o. daily. 11.Invega 156 IM q.30 days. 12.Nitrostat 0.4 mg sublingual p.r.n. 13.Toprol XL 25 mg p.o. daily. 14.Imdur 30 mg daily. 15.NovoLog 7 units a.c. t.i.d. 16.Neurontin 400 mg t.i.d. 17.Digitek 125 mcg p.o. daily. 18.Cymbalta mg p.o. b.i.d. 19.Aspirin 81 mg p.o. daily. ALLERGIES: Allergies are ERYTHROMYCIN, CEPHALEXIN, CODEINE, MECLIZINE, PENICILLIN, SHELLFISH, FISH CONTAINING, IODINATED CONTRAST, NAPROXEN, ATORVASTATIN and NORCO. FAMILY HISTORY: History of CAD, myocardial infarction in the family. SOCIAL HISTORY: No history of smoking. No history of alcohol intake. REVIEW OF SYSTEMS: ENT: No diminished hearing or diminished vision. CARDIOVASCULAR SYSTEM: As mentioned earlier. RESPIRATORY SYSTEM: As mentioned earlier. GI: No nausea. : No dysuria. NERVOUS SYSTEM: No numbness or weakness. ALLERGY/IMMUNOLOGY: Asthma. MUSCULOSKELETAL: As mentioned earlier. CONSTITUTIONAL: As mentioned earlier. DERMATOLOGY: Negative. RHEUMATOLOGY: Negative. PSYCHIATRY: As mentioned earlier. PHYSICAL EXAMINATION: The patient is alert and oriented x3. Pulse is 58, blood pressure 175/105, respiration 18, temperature 98.2, pulse ox 98% on room air. HEENT: Conjunctivae normal. NECK: No jugular venous distention. CARDIOVASCULAR: S1, S2 muffled. RESPIRATORY: Breath sounds diminished at the bases. A few scattered rhonchi and crackles. ABDOMEN: Soft, nontender. LEGS: No edema, no swelling. NERVOUS SYSTEM: No focal deficits. LABS: CBC within normal limits otherwise glucose 235 and troponin 0.025 and 0.027. ASSESSMENT: 1. Generalized aches and pains for evaluation, possible fibromyalgia. 2. Chest pains. 3. Dizziness and nausea. 4. History of recent stroke involving the right side, status post tPA evaluation to [facility]. 5. Obesity with body mass index of 42. 6. History of asthma. 7. History of congestive heart failure. 8. History of cerebrovascular accident, transient ischemic attack. 9. History of ischemic cardiomyopathy. 10.Diabetes mellitus type 2. 11.Gastroesophageal reflux disease. 12.History of coronary artery disease. 13.Hypertension. 14.Hyperlipidemia. 15.History of myocardial infarction. 16.History of pneumonia. 17.Sleep apnea. 18.History of diabetic peripheral neuropathy. 19.History of AICD. 20.History of coronary artery disease, stent. RECOMMENDATIONS AND DISCUSSION: Recommend to continue current medications, continue symptomatic treatment. Otherwise at this time resume the home medications, symptomatic treatment will be provided and home medications reviewed. Prognosis guarded because of multiple complex medical issues. Further recommendations to follow. Repeat labs have been ordered. MMODL / IJN: [id number] / ARMAND
[2018-05-27] MEDS ORDERED: PANTOPRAZOLE 40 MG TABLET PO SCH (07:30)
[2018-05-27 07:41] LABS: Glucose,Whole Blood 258 mg/dL (75-99)
[2018-05-27] MEDS ORDERED: DIGOXIN 125 MCG TAB PO SCH (08:00)
[2018-05-27] MEDS ORDERED: SPIRONOLACTONE 25 MG TAB PO SCH (08:00)
[2018-05-27] MEDS ORDERED: METOPROLOL SUCCINATE (ER) 25 MG TAB.ER.24H PO SCH (08:00)
--- NOTE | 2018-05-27 08:59 | XR ---
EXAMINATION TYPE: XR chest 2V DATE OF EXAM: 05/27/2018 COMPARISON: 05/22/2018 HISTORY: Hypotension. Evaluate fluid status. History of cardiac disease. Recent chest pain. TECHNIQUE: Frontal and lateral views of the chest are obtained. FINDINGS: There is no focal air space opacity, pleural effusion, or pneumothorax seen. No interstit ial pulmonary edema or pulmonary vascular congestion. The cardiac silhouette size is mildly enlarged with multilead left-sided cardiac device. Cardiac stents are present. The osseous structures are int act. IMPRESSION: Resolution of the previously seen trace right pleural effusion. No acute cardiopulmonary process.
[2018-05-27] MEDS ORDERED: ISOSORBIDE MONONITRATE ER 30 MG TAB.ER.24H PO SCH (09:00)
[2018-05-27] MEDS ORDERED: ENOXAPARIN 40 MG/0.4 ML SYRINGE SQ SCH (09:00)
[2018-05-27] MEDS ORDERED: DULoxetine HCL 60 MG CAPSULE.DR PO SCH (09:00)
[2018-05-27] MEDS ORDERED: PRIMIDONE 50 MG TAB PO SCH (09:00)
[2018-05-27] MEDS ORDERED: TORSEMIDE 20 MG TAB PO SCH (09:00)
[2018-05-27] MEDS ORDERED: ASPIRIN 325 MG TAB PO SCH (09:00)
--- NOTE | 2018-05-27 11:00 | P.CRDCN ---
History of Present Illness History of present illness: This is a pleasant 41-year-old male with significant past medical history for coronary artery disease status post multiple angioplasties, ischemic cardiomyopathy status post AICD, hypertension, dyslipidemia, diabetes mellitus and obstructive sleep apnea. He follows with a compliance program manager at [facility]. He has frequent hospital admissions for symptoms of chest pain as well as psychosis. We have been asked to see him in consultation for hypotension. He states yesterday he went for his appointment [facility]. He is scheduled to get Invega injection, which was started approximately 1-month ago. Prior to the shot he says they checked his blood pressure and it was normal. He remained at the office for observation and 30 minutes after he started feeling extremely weak, nauseated and diaphoretic. Blood pressure on arrival to the hospital was 96/60 and 89/59. He was given a 2 L fluid bolus. Blood pressures have remained in the 90 systolic. The evening, this morning is 109/ 68 115/77. He denies ever having had symptoms of chest discomfort, shortness of breath, palpitations or vomiting. He states the nausea and diaphoresis has resolved but he still feels generally weak. EKG reveals paced rhythm. Chest x-ray is negative for acute cardiopulmonary process. Laboratory data reviewed, WBC 4.9, hemoglobin 11.4, platelets 169, sodium 134, potassium 4.7, creatinine 1.15, cardiac enzymes negative 3, magnesium 1.7, LDL 58 and HDL 40. Current cardiac medications include aspirin 81 mg daily, digoxin 125 g daily, Imdur 30 mg daily, Toprol 25 mg daily, Aldactone 25 mg daily, ProSom and 40 mg twice a day, Plavix 75 mg daily rosuvastatin 40 mg daily. Most recent echocardiogram obtained 03/2018 reveals ejection fraction 20-25% with severe global hypokinesia which is consistent with previous echocardiograms. At the time of my exam: CONSTITUTIONAL: Denies fever. Denies chills. EYES: Denies blurred vision. Denies vision changes. Denies eye pain. EARS, NOSE, MOUTH & THROAT: Denies headache. Denies sore throat. Denies ear pain. CARDIOVASCULAR: Denies chest pain. Denies shortness of breath. Denies orthopnea. Denies PND. Denies palpitations. RESPIRATORY: Denies cough. GASTROINTESTINAL: Denies abdominal pain. Denies diarrhea. Denies constipation. Denies nausea. Denies vomiting. MUSCULOSKELETAL: Denies myalgias. INTEGUMENTARY: Denies pruitis. Denies rash. NEUROLOGIC: Denies numbness. Denies tingling. Denies weakness. PSYCHIATRIC: Denies anxiety. Denies depression. ENDOCRINE: Denies fatigue. Denies weight change. Denies polydipsia. Denies polyurina. GENITOURINARY: Denies burning, hematuria or urgency with micturation. HEMATOLOGIC: Denies history of anemia. Denies bleeding. Blood pressure 115/77 heart rate 73 afebrile maintaining oxygen saturation on room air GENERAL: This is a 42-year-old male in no apparent distress at the time of my examination. Obese. HEENT: Head is atraumatic, normocephalic. Pupils are equal, round. Sclerae anicteric. Conjunctivae are clear. Mucous membranes of the mouth are moist. Neck is supple. There is no jugular venous distention. No carotid bruit is heard. LUNGS: Clear to auscultation no wheezes, rales or rhonchi. No chest wall tenderness is noted on palpation or with deep breathing. Diminished bilaterally. HEART: Regular rate and rhythm without murmurs, rubs or gallops. S1 and S2 heard. ABDOMEN: Soft, nontender. Bowel sounds are heard. No organomegaly noted. EXTREMITIES: No evidence of peripheral edema and no calf tenderness noted. VASCULAR: Radial and dorsalis pedis pulses palpated, no evidence of clubbing. NEUROLOGIC: Patient is awake, alert and oriented x3. ASSESSMENT Generalized weakness secondary to hypotension status post Invega injection History of coronary artery disease status post multiple angioplasties Chronic ischemic cardiomyopathy Chronic systolic heart failure, currently euvolemic History of AICD implantation Hypertension Dyslipidemia Diabetes mellitus PLAN Hypotension may be related to Invega injection. Continue to monitor his blood pressure and can be discharged if stable. Advised him to discuss with his psychiatrist if there is another option for anti -psychotic medications. Follow up with his primary compliance program manager upon discharge. Thank you kindly for this consultation. Nurse Practitioner note has been reviewed, I agree with a documented findings and plan of care. Patient was seen and examined. Past Medical History Past Medical History: Asthma, Coronary Artery Disease (CAD), Chest Pain / Angina , Heart Failure, CVA/TIA, Diabetes Mellitus, Deep Vein Thrombosis (DVT), GERD/ Reflux, Hyperlipidemia, Hypertension, Myocardial Infarction (NC), Osteoarthritis (OA), Pneumonia, Skin Disorder, Sleep Apnea/CPAP/BIPAP Additional Past Medical History / Comment(s): multiple vessel CAD, ischemic cardiomyopathy, diabetic neuropathy bilateral hands and feet, hypertensive cardiovascular disease, SHELIA with no device, chronic gastritis, degenerative disc disease, chronic back pain, depression with hx of suicide attempts, gastroparesis, psoriasis, UTI, migraines, TIA, PUD, hiatal hernia, L rotator cuff tear, bronchitis, pseudoaneurysm L groin post procedure. 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 Last Myocardial Infarction Date:: October 2017 History of Any Multi-Drug Resistant Organisms: MRSA Date of last positivie culture/infection: 11/05/2017 (Culture done at [facility]) MDRO Source:: legs Past Surgical History: AICD, Appendectomy, Cholecystectomy, Heart Catheterization With Stent, Hernia Repair Additional Past Surgical History / Comment(s): Pt has had multiple cardiac procedures- caths/stents/PTCA, last stent placed at [facility] -October2017, SAVANNAH, R inguinal hernia repair, umbilical hernia repair, right orchiectomy due to necrosis, right hand surgery r/t injury, colonoscopy, cystoscopy (scraped bladder parrish), stents 10/2017, Past Anesthesia/Blood Transfusion Reactions: No Reported Reaction Additional Past Anesthesia/Blood Transfusion Reaction / Comment(s): . Date of Last Stent Placement:: 10/2017 Type of Cardiac Device: Biventricular Pacemaker, AICD Device Placement Date:: 09/19/15 Past Psychological History: Anxiety, Depression, PTSD Additional Psychological History / Comment(s): Several suicide attempts with use of insulin. PTSD - in 2000 his 3mo old son in his arms (born 2 months premature). Pt states he is currently suicidal and wishes he were . He has a walker at home if needed. He drives.pt has 2 adult stepchildren at home with him most of the time. Spouse manages his medications. He is on a 1500 cc fluid restriction. Smoking Status: Never smoker Past Alcohol Use History: None Reported Additional Past Alcohol Use History / Comment(s): Past alcohol abuse - pt states he quit drinking over 8yrs ago. Past Drug Use History: None Reported Additional Drug Use History / Comment(s): Pt has smoked marijuana in the past - last smoked in 1999. - Past Family History Mother Family Medical History: Coronary Artery Disease (CAD), Myocardial Infarction (NC ) Additional Family Medical History / Comment(s): 7 NC and faulty heart valve. Pt does not know the age when mother had her NC's. Father History Unknown: Yes Additional Family Medical History / Comment(s): Does not know who father is. Brother(s) Family Medical History: Cancer, Congestive Heart Failure (CHF), Myocardial Infarction (NC) Additional Family Medical History / Comment(s): Parkinsons. Pt does not know at what age his brother had an NC. Patient's other brother has lung CA Patient has Family Medical History: No Reported History Additional Family Medical History / Comment(s): There is a strong family history for heart disease, hypertension, and diabetes. Medications and Allergies Home Medications Medication Instructions Recorded Confirmed Type Clopidogrel [Plavix] 75 mg PO HS 12/03/17 05/26/18 History Metoprolol Succinate [Toprol XL] 25 mg PO DAILY@0800 12/03/17 05/26/18 History Rosuvastatin [Crestor] 40 mg PO HS@2100 12/30/17 05/26/18 History Digoxin [Digitek] 125 mcg PO DAILY@0800 02/01/18 05/26/18 History Gabapentin [Neurontin] 400 mg PO TID@0600,1400,2100 02/01/18 05/26/18 History Spironolactone [Aldactone] 25 mg PO DAILY@0800 02/01/18 05/26/18 History Torsemide [Demadex] 40 mg PO BID 02/01/18 05/26/18 History Aspirin 81 mg PO DAILY chew 02/03/18 05/26/18 Rx Albuterol Inhaler [Ventolin Hfa 2 puff INHALATION RT-Q6H PRN 04/01/18 05/26/18 History Inhaler] Pantoprazole [Protonix] 40 mg PO DAILY 04/01/18 05/26/18 History Primidone [Mysoline] 100 mg PO BID 04/01/18 05/26/18 History Nitroglycerin Sl Tabs [Nitrostat] 0.4 mg SUBLINGUAL Q5M PRN tab 04/09/18 Rx hydrOXYzine PAMOATE [Vistaril] 50 mg PO TID PRN #45 capsule 04/13/18 05/26/18 Rx traMADol HCl [Ultram] 50 mg PO Q6H PRN tab 04/13/18 05/26/18 Rx Insulin Aspart [NovoLOG 7 unit SQ AC-TID #0 04/24/18 05/26/18 Rx (formulary)] Insulin Detemir [Levemir] 35 unit SQ HS #0 04/24/18 05/26/18 Rx Isosorbide Mononitrate ER [Imdur] 30 mg PO DAILY tab.er.24h 04/24/18 05/26/18 Rx Paliperidone IM [Invega Sustenna] 156 mg IM Q30D 05/02/18 05/26/18 History DULoxetine HCL [Cymbalta] 60 mg PO BID capsule. 05/10/18 05/26/18 Rx Allergies Allergy/AdvReac Type Severity Reaction Status Date / Time erythromycin base Allergy Severe Rash/Hives Verified 05/26/18 16:08 [Erythromycin Base] cephalexin monohydrate Allergy Unknown Rash/Hives Verified 05/26/18 16:08 [From Keflex] codeine Allergy Unknown Unknown Verified 05/26/18 16:08 meclizine Allergy Unknown Unknown Verified 05/26/18 16:08 Penicillins Allergy Unknown Rash/Hives Verified 05/26/18 16:08 shellfish derived Allergy Unknown Anaphylaxis Verified 05/26/18 16:08 Fish Containing Products Allergy Anaphylaxis Verified 05/26/18 16:08 [Fish] Iodinated Contrast- Oral and Allergy Anaphylaxis Verified 05/26/18 16:08 IV Dye naproxen AdvReac Unknown Compromises Verified 05/26/18 16:08 Kidney Function atorvastatin calcium AdvReac Myalgia Verified 05/26/18 16:08 [From Lipitor] hydrocodone [From [place]] AdvReac Rapid Verified 05/26/18 16:08 Heart Rate Physical Exam Vitals: Vital Signs Temp Pulse Pulse Resp BP BP Pulse Ox 05/27/18 04:00 97.4 F L 76 15 109/68 95 05/27/18 00:00 97.8 F 76 15 113/60 95 05/26/18 22:05 98.2 F 69 18 100/50 05/26/18 21:39 87 18 05/26/18 21:23 58 L 18 175/105 98 05/26/18 21:20 95/61 100 05/26/18 21:10 100/67 98 05/26/18 20:50 96 05/26/18 20:40 96 05/26/18 20:30 83/40 97 05/26/18 20:20 83/40 97 05/26/18 20:10 94/57 98 05/26/18 20:00 105/66 99 05/26/18 19:50 105/66 05/26/18 19:40 101/61 05/26/18 19:38 98.7 F 87 18 101/67 98 05/26/18 19:30 98/54 05/26/18 19:20 98/54 05/26/18 19:10 87/64 05/26/18 19:00 93/52 05/26/18 18:50 93/52 05/26/18 18:40 84/57 05/26/18 18:30 91/51 05/26/18 18:20 91/51 05/26/18 18:10 95/48 05/26/18 18:00 85/53 05/26/18 17:50 85/53 05/26/18 17:30 93/51 99 05/26/18 17:20 93/51 98 05/26/18 17:10 94/56 98 05/26/18 17:00 89/59 96 05/26/18 16:50 89/59 96 05/26/18 16:40 98/51 96 05/26/18 16:30 89/59 97 05/26/18 16:20 89/59 97 05/26/18 16:10 89/59 94 L 05/26/18 16:00 96/60 94 L 05/26/18 15:53 96/60 95 05/26/18 15:47 98.4 F 71 18 96/60 98 Intake and Output 05/26/18 05/27/18 05/27/18 22:59 06:59 14:59 Intake Total 1200 1200 Balance 1200 1200 Intake: Intake, IV Titration 1200 1200 Amount Sodium Chloride 0.9% 1, 1200 1200 000 ml @ 150 mls/hr IV . Q6H40M [facility] Rx#:[id number] Other: # Voids 2 Weight 112.3 kg 112.5 kg Results 05/27/18 04:33 05/27/18 04:33 Cardiac Enzymes 05/26/18 05/26/18 05/26/18 Range/Units 16:28 16:28 22:55 AST 31 (17-59) U/L CK-MB (CK-2) 1.9 1.8 (0.0-2.4) ng/mL Troponin I 0.025 0.027 (0.000-0.034) ng/mL 05/27/18 Range/Units 04:33 AST (17-59) U/L CK-MB (CK-2) 1.9 (0.0-2.4) ng/mL Troponin I 0.021 (0.000-0.034) ng/mL Coagulation 05/26/18 Range/Units 16:28 PT 11.1 (9.0-12.0) sec APTT 22.8 (22.0-30.0) sec Lipids 05/27/18 Range/Units 04:33 Triglycerides 166 H (<150) mg/dL Cholesterol 131 (<200) mg/dL HDL Cholesterol 40 (40-60) mg/dL CBC 05/26/18 05/27/18 Range/Units 16:28 04:33 WBC 3.8 4.9 (3.8-10.6) k/uL RBC 5.21 4.21 L (4.30-5.90) m/uL Hgb 13.6 11.4 L (13.0-17.5) gm/dL Hct 43.7 36.1 L (39.0-53.0) % Plt Count 145 L 169 (150-450) k/uL Comprehensive Metabolic Panel 05/26/18 05/27/18 Range/Units 16:28 04:33 Sodium 134 L 134 L (137-145) mmol/L Potassium 4.5 4.7 (3.5-5.1) mmol/L Chloride 97 L 99 (98-107) mmol/L Carbon Dioxide 30 25 (22-30) mmol/L BUN 41 H 43 H (9-20) mg/dL Creatinine 1.07 1.15 (0.66-1.25) mg/dL Glucose 161 H 258 H (74-99) mg/dL Calcium 9.0 8.6 (8.4-10.2) mg/dL AST 31 (17-59) U/L ALT 35 (21-72) U/L Alkaline Phosphatase 131 H (38-126) U/L Total Protein 5.7 L (6.3-8.2) g/dL Albumin 3.1 L (3.5-5.0) g/dL Current Medications Generic Name Dose Route Start Last Admin Trade Name Freq PRN Reason Stop Dose Admin Albuterol Sulfate 2.5 mg 05/26/18 22:16 Ventolin Nebulized INHALATION RT-Q6H PRN Shortness Of Breath Aspirin 325 mg 05/27/18 09:00 Aspirin PO DAILY [facility] Clopidogrel Bisulfate 75 mg 05/27/18 21:00 Plavix PO HS [facility] Digoxin 125 mcg 05/27/18 08:00 Lanoxin PO DAILY@0800 [facility] Duloxetine HCl 60 mg 05/27/18 09:00 Cymbalta PO BID [facility] Enoxaparin Sodium 40 mg 05/27/18 09:00 Lovenox SQ DAILY [facility] Gabapentin 400 mg 05/27/18 06:00 05/27/18 06:10 Neurontin PO 400 mg TID@0600,1400,2100 [facility] Administration Hydroxyzine Pamoate 50 mg 05/26/18 22:16 Vistaril PO TID PRN Anxiety Sodium Chloride 1,000 mls @ 150 mls/hr 05/26/18 19:00 05/27/18 02:12 Saline 0.9% IV 150 mls/hr .Q6H40M [facility] Administration Insulin Aspart 7 unit 05/27/18 07:30 Novolog SQ AC-TID [facility] Insulin Detemir 35 unit 05/26/18 22:30 05/26/18 22:41 Levemir SQ 35 unit HS [facility] Administration Isosorbide Mononitrate 30 mg 05/27/18 09:00 Imdur PO DAILY [facility] Metoprolol Succinate 25 mg 05/27/18 08:00 Toprol Xl PO DAILY@0800 [facility] Nitroglycerin 0.4 mg 05/26/18 18:52 Nitrostat SUBLINGUAL Q5M PRN Chest Pain Non-Formulary Medication 40 mg 05/27/18 21:00 Rosuvastatin PO HS@2100 [facility] Paliperidone Palmitate 156 mg 06/26/18 09:00 Invega Sustenna IM Q30D [facility] Pantoprazole Sodium 40 mg 05/27/18 07:30 Protonix PO AC-BRKFST [facility] Primidone 100 mg 05/27/18 09:00 Mysoline PO BID [facility] Spironolactone 25 mg 05/27/18 08:00 Aldactone PO DAILY@0800 [facility] Torsemide 40 mg 05/27/18 09:00 Demadex PO BID [facility] Tramadol HCl 50 mg 05/26/18 22:16 Ultram PO Q6H PRN chest pain Intake and Output 05/26/18 05/27/18 05/27/18 22:59 06:59 14:59 Intake Total 1200 1200 Balance 1200 1200 Intake: Intake, IV Titration 1200 1200 Amount Sodium Chloride 0.9% 1, 1200 1200 000 ml @ 150 mls/hr IV . Q6H40M [facility] Rx#:[id number] Other: # Voids 2 Weight 112.3 kg 112.5 kg 05/27/18 04:33 05/27/18 04:33
[2018-05-27] MEDS: INSULIN ASPART 100 UNIT/ML 1 ML 10 ML VIAL SQ SCH ×2 (11:05→11:12)
[2018-05-27 11:15] LABS: Glucose,Whole Blood 196 mg/dL (75-99)
[2018-05-27 12:16] VITALS: BP 125/68; PULSE 81; RESP 18; TEMP 97.8
[2018-05-27] MEDS ORDERED: CLOPIDOGREL 75 MG TAB PO SCH (21:00)
--- NOTE | 2018-05-28 06:53 | DS ---
DISCHARGE SUMMARY DATE OF SERVICE: 05/27/2018 FINAL DIAGNOSES: 1. Generalized aches and pains for evaluation, possible fibromyalgia, status post Invega injection. 2. Chest pains, improved. 3. Dizziness and nausea. 4. History of recent stroke involving the right side, status post tPA, evaluation in [facility]. 5. Body mass index 40. 6. History of asthma. 7. History of congestive heart failure. 8. History of cerebrovascular accident, transient ischemic attack. 9. History of ischemic cardiomyopathy. 10.Diabetes mellitus type 2. 11.Gastroesophageal reflux disease. 12.History of coronary artery disease. 13.Hypertension. 14.Hyperlipidemia. 15.History of myocardial infarction. 16.History of pneumonia. 17.Sleep apnea. 18.History of diabetic peripheral neuropathy. 19.History of AICD. 20.History of coronary artery disease, stent. DISCHARGE DISPOSITION: The patient will be discharged in stable condition with guarded prognosis. Discharge cleared by Cardiology. HISTORY OF PRESENT ILLNESS: This 42-year-old gentleman with a past medical history of multiple medical problems admitted with generalized weakness and tiredness. The patient also had Invega injection. Patient improved significantly. Conservative line of management was given. Cardiology evaluated the patient at length and no workup was being planned, during the recent admission as well. Please refer to cardiology notes for further information. The patient improved significantly. The patient will be discharged in stable condition with guarded prognosis with recommendations to continue the home medications. Please refer to the home medication list for details. They are as follows. Follow up with Dr. Junie New as advised. MEDICATIONS: 1. Albuterol p.r.n. 2. Plavix 75 mg q.h.s. 3. Digitek 125 mcg p.o. daily. 4. Neurontin 400 mg p.o. t.i.d. 5. Toprol XL 25 mg p.o. daily. 6. Invega q.30 days. 7. Protonix 40 mg daily. 8. Mysoline 100 mg p.o. b.i.d. 9. Crestor 40 mg p.o. q.h.s. 10.Aldactone 25 mg p.o. daily. 11.Demadex 40 mg p.o. b.i.d. 12.Aspirin 81 mg p.o. daily. 13.Cymbalta 60 mg p.o. daily. 14.Vistaril 50 mg t.i.d. p.r.n. 15.Insulin 7 units a.c. t.i.d. 16.Levemir 35 units subcutaneous q.h.s. 17.Imdur 30 mg p.o. daily. 18.Nitrostat 0.4 sublingual p.r.n. 19.Ultram 50 mg q.6 p.r.n. Please send a copy to patient's own evening or night nurse supervisor. Once again, the patient was discharged in stable condition with guarded prognosis. MMODL / IJN: [id number] /
[2018-06-26] MEDS ORDERED: PALIPERIDONE IM 156 MG/ML SYG IM SCH (09:00)
== END 2018-05-27 12:53 ==
LOC: EC 15:31 → 1SOBS 18:52
PROVIDERS: ADMIT Hospitalist; ATTEND Hospitalist
DX: R07.89 Other chest pain (principal); M79.10 Myalgia, unspecified site; I95.9 Hypotension, unspecified; G89.29 Other chronic pain; M54.9 Dorsalgia, unspecified; R63.0 Anorexia; R61 Generalized hyperhidrosis; I25.5 Ischemic cardiomyopathy; I25.10 Atherosclerotic heart disease of native coronary artery without angina pectoris; I50.22 Chronic systolic (congestive) heart failure; I11.0 Hypertensive heart disease with heart failure; G47.33 Obstructive sleep apnea (adult) (pediatric); E11.42 Type 2 diabetes mellitus with diabetic polyneuropathy; K21.9 Gastro-esophageal reflux disease without esophagitis; J45.909 Unspecified asthma, uncomplicated; E78.5 Hyperlipidemia, unspecified; M19.90 Unspecified osteoarthritis, unspecified site; L40.9 Psoriasis, unspecified; F29 Unspecified psychosis not due to a substance or known physiological condition; F43.10 Post-traumatic stress disorder, unspecified; F41.9 Anxiety disorder, unspecified; F32.9 Major depressive disorder, single episode, unspecified; Z68.41 Body mass index [BMI] 40.0-44.9, adult; E66.9 Obesity, unspecified; Z99.89 Dependence on other enabling machines and devices; Z79.02 Long term (current) use of antithrombotics/antiplatelets; Z79.82 Long term (current) use of aspirin; Z79.4 Long term (current) use of insulin; Z79.899 Other long term (current) drug therapy; Z88.0 Allergy status to penicillin; Z88.1 Allergy status to other antibiotic agents; Z88.5 Allergy status to narcotic agent; Z88.6 Allergy status to analgesic agent; Z88.8 Allergy status to other drugs, medicaments and biological substances; Z91.041 Radiographic dye allergy status; Z91.013 Allergy to seafood; Z91.018 Allergy to other foods; I25.2 Old myocardial infarction; Z87.01 Personal history of pneumonia (recurrent); Z87.440 Personal history of urinary (tract) infections; Z87.11 Personal history of peptic ulcer disease; Z87.19 Personal history of other diseases of the digestive system; Z86.73 Personal history of transient ischemic attack (TIA), and cerebral infarction without residual deficits; Z91.5 Personal history of self-harm; Z86.14 Personal history of Methicillin resistant Staphylococcus aureus infection; Z95.810 Presence of automatic (implantable) cardiac defibrillator; Z90.49 Acquired absence of other specified parts of digestive tract; Z95.5 Presence of coronary angioplasty implant and graft; Z90.79 Acquired absence of other genital organ(s); Z82.49 Family history of ischemic heart disease and other diseases of the circulatory system; Z82.0 Family history of epilepsy and other diseases of the nervous system; Z80.1 Family history of malignant neoplasm of trachea, bronchus and lung; Z83.3 Family history of diabetes mellitus
CPT/HCPCS: 96360; 96361; 96372; 99285; 36415; 93005; 80061; 80053; 80048; 82550 ×2; 82553 ×2; 83735; 84100; 84443; 84484 ×2; 85025 ×2; 85610; 85730; 81003; 87086; 87502; 71046; G0378 ×2; J1650

== ENCOUNTER 2018-06-06 05:01 | Observation (INO) | payer MEDICARE, OTHER ==
[2018-06-06 05:58] LABS: Anisocytosis Slight; Basophils # (A) 0.1 k/uL (0-0.2); Basophils % (A) 1 %; Eosinophils # (A) 0.2 k/uL (0-0.7); Eosinophils % (A) 4 %; HCT 38.7 % (39.0-53.0); HGB 11.9 gm/dL (13.0-17.5); Hypochromasia Slight; Lymphocytes # (A) 1.2 k/uL (1.0-4.8); Lymphocytes % (A) 22 %; MCHC 30.7 g/dL (31.0-37.0); MCV 84.7 fL (80.0-100.0); Mean Platelet Volume 6.4; Monocytes # (A) 0.3 k/uL (0-1.0); Monocytes % (A) 5 %; Neutrophils # (A) 3.7 k/uL (1.3-7.7); Neutrophils % (A) 66 %; Platelet Count 211 k/uL (150-450); RBC 4.57 m/uL (4.30-5.90); RDW 16.4 % (11.5-15.5); WBC 5.6 k/uL (3.8-10.6)
--- NOTE | 2018-06-06 06:06 | XR ---
EXAMINATION TYPE: XR chest 1V portable DATE OF EXAM: 06/06/2018 COMPARISON: 05/27/2018 HISTORY: Chest pain TECHNIQUE: Single frontal view of the chest is obtained. FINDINGS: There is no heart failure. Heart appears slightly enlarged. There is left axillary pacemak er with the lead tips in the right ventricle. There is no pleural effusion. IMPRESSION: Mild cardiomegaly. No change compared to last exam. No heart failure.
[2018-06-06 06:17] LABS: ALT 32 U/L (21-72); AST 25 U/L (17-59); Albumin 3.4 g/dL (3.5-5.0); Alkaline Phosphatase 172 U/L (38-126); Anion Gap 8 mmol/L; Blood Urea Nitrogen 22 mg/dL (9-20); Calcium 9.8 mg/dL (8.4-10.2); Carbon Dioxide 25 mmol/L (22-30); Chloride 99 mmol/L (98-107); Glucose 331 mg/dL (74-99); Magnesium 1.7 mg/dL (1.6-2.3); Potassium 4.6 mmol/L (3.5-5.1); Sodium 132 mmol/L (137-145); Total Bilirubin 0.9 mg/dL (0.2-1.3); Total Protein 6.1 g/dL (6.3-8.2)
[2018-06-06 06:27] VITALS: RESP 18
[2018-06-06 06:27] LABS: Partial Thromboplastin Time 22.4 sec (22.0-30.0); Prothrombin Time 11.1 sec (9.0-12.0)
[2018-06-06 06:30] LABS: Creatine Kinase MB 2.3 ng/mL (0.0-2.4); Troponin I 0.034 ng/mL (0.000-0.034)
--- NOTE | 2018-06-06 06:31 | ED ---
Chest Pain HPI - General Chief Complaint: Chest Pain Stated Complaint: Chest Pressure Time Seen by Provider: 06/06/18 05:11 Source: patient Mode of arrival: wheelchair Limitations: no limitations - History of Present Illness MD Complaint: chest pain Onset/Timin -: hour(s) Onset: during rest Pain Location: substernal Pain Radiation: neck Severity: moderate Quality: heaviness Consistency: constant Improves With: nitroglycerin Worsens With: nothing Anginal Symptoms: nausea, diaphoresis Treatments Prior to Arrival: nitroglycerin - Related Data Home Medications Medication Instructions Recorded Confirmed Clopidogrel [Plavix] 75 mg PO HS 12/03/17 05/26/18 Metoprolol Succinate [Toprol XL] 25 mg PO DAILY@0812/03/17 05/26/18 Rosuvastatin [Crestor] 40 mg PO HS@209912/30/17 05/26/18 Digoxin [Digitek] 125 mcg PO DAILY@0802/01/18 05/26/18 Gabapentin [Neurontin] 400 mg PO TID@0600,1400,209902/01/18 05/26/18 Spironolactone [Aldactone] 25 mg PO DAILY@0802/01/18 05/26/18 Torsemide [Demadex] 40 mg PO BID 02/01/18 05/26/18 Albuterol Inhaler [Ventolin Hfa 2 puff INHALATION RT-Q6H PRN 04/01/18 05/26/18 Inhaler] Pantoprazole [Protonix] 40 mg PO DAILY 04/01/18 05/26/18 Primidone [Mysoline] 100 mg PO BID 04/01/18 05/26/18 Paliperidone IM [Invega Sustenna] 156 mg IM Q30D 05/02/18 05/26/18 Previous Rx's Medication Instructions Recorded Aspirin 81 mg PO DAILY chew 02/03/18 Nitroglycerin Sl Tabs [Nitrostat] 0.4 mg SUBLINGUAL Q5M PRN tab 04/09/18 hydrOXYzine PAMOATE [Vistaril] 50 mg PO TID PRN #45 capsule 04/13/18 traMADol HCl [Ultram] 50 mg PO Q6H PRN tab 04/13/18 Insulin Aspart [NovoLOG 7 unit SQ AC-TID #0 04/24/18 (formulary)] Insulin Detemir [Levemir] 35 unit SQ HS #0 04/24/18 Isosorbide Mononitrate ER [Imdur] 30 mg PO DAILY tab.er.24h 04/24/18 DULoxetine HCL [Cymbalta] 60 mg PO BID capsule. 05/10/18 Allergies Allergy/AdvReac Type Severity Reaction Status Date / Time erythromycin base Allergy Severe Rash/Hives Verified 06/06/18 05:07 [Erythromycin Base] cephalexin monohydrate Allergy Unknown Rash/Hives Verified 06/06/18 05:07 [From Keflex] codeine Allergy Unknown Unknown Verified 06/06/18 05:07 meclizine Allergy Unknown Unknown Verified 06/06/18 05:07 Penicillins Allergy Unknown Rash/Hives Verified 06/06/18 05:07 shellfish derived Allergy Unknown Anaphylaxis Verified 06/06/18 05:07 Fish Containing Products Allergy Anaphylaxis Verified 06/06/18 05:07 [Fish] Iodinated Contrast- Oral and Allergy Anaphylaxis Verified 06/06/18 05:07 IV Dye naproxen AdvReac Unknown Compromises Verified 06/06/18 05:07 Kidney Function atorvastatin calcium AdvReac Myalgia Verified 06/06/18 05:07 [From Lipitor] hydrocodone [From [place]] AdvReac Rapid Verified 06/06/18 05:07 Heart Rate Review of Systems ROS Statement: Those systems with pertinent positive or pertinent negative responses have been documented in the HPI. ROS Other: All systems not noted in ROS Statement are negative. Constitutional: Denies: fever, chills Respiratory: Reports: dyspnea. Denies: cough Cardiovascular: Reports: chest pain. Denies: palpitations, orthopnea, edema, syncope Gastrointestinal: Reports: nausea. Denies: abdominal pain, vomiting, diarrhea Genitourinary: Denies: dysuria Musculoskeletal: Denies: back pain Skin: Denies: rash Neurological: Denies: headache, weakness, numbness Psychiatric: Reports: anxiety EKG Findings - EKG Comments: EKG Findings:: The ECG shows atrial sensed ventricular paced rhythm rate approximately [address] elevation or other changes. Past Medical History Past Medical History: Asthma, Coronary Artery Disease (CAD), Chest Pain / Angina , Heart Failure, CVA/TIA, Diabetes Mellitus, Deep Vein Thrombosis (DVT), GERD/ Reflux, Hyperlipidemia, Hypertension, Myocardial Infarction ([place]), Osteoarthritis (OA), Pneumonia, Skin Disorder, Sleep Apnea/CPAP/BIPAP Additional Past Medical History / Comment(s): multiple vessel CAD, ischemic cardiomyopathy, diabetic neuropathy bilateral hands and feet, hypertensive cardiovascular disease, SHELIA with no device, chronic gastritis, degenerative disc disease, chronic back pain, depression with hx of suicide attempts, gastroparesis, psoriasis, UTI, migraines, TIA, PUD, hiatal hernia, L rotator cuff tear, bronchitis, pseudoaneurysm L groin post procedure. 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 Date of Last Stent Placement:: 10/2017 Type of Cardiac Device: Biventricular Pacemaker, AICD Device Placement Date:: 09/19/15 Past Psychological History: Anxiety, Depression, PTSD Smoking Status: Never smoker Past Alcohol Use History: None Reported Past Drug Use History: None Reported - Past Family History Mother Family Medical History: Coronary Artery Disease (CAD), Myocardial Infarction ([place] ) Additional Family Medical History / Comment(s): 7 [place] and faulty heart valve. Pt does not know the age when mother had her NM's. Father History Unknown: Yes Additional Family Medical History / Comment(s): Does not know who father is. Brother(s) Family Medical History: Cancer, Congestive Heart Failure (CHF), Myocardial Infarction ([place]) Additional Family Medical History / Comment(s): Parkinsons. Pt does not know at what age his brother had an NM. Patient's other brother has lung CA Patient has Family Medical History: No Reported History Additional Family Medical History / Comment(s): There is a strong family history for heart disease, hypertension, and diabetes. General Exam Limitations: no limitations General appearance: alert, in no apparent distress, obese Head exam: Present: atraumatic, normocephalic Eye exam: Present: normal appearance Neck exam: Present: normal inspection, full ROM Respiratory exam: Present: normal lung sounds bilaterally. Absent: respiratory distress, wheezes, rales, rhonchi, stridor Cardiovascular Exam: Present: regular rate, normal rhythm, normal heart sounds. Absent: systolic murmur, diastolic murmur, rubs, gallop GI/Abdominal exam: Present: soft. Absent: distended, tenderness, guarding, rebound Extremities exam: Present: normal inspection, normal capillary refill. Absent: pedal edema, calf tenderness Back exam: Present: normal inspection. Absent: CVA tenderness (R), CVA tenderness (L) Neurological exam: Present: alert Skin exam: Present: warm, dry, intact, normal color. Absent: rash Course Vital Signs 06/06/18 06/06/18 05:04 06:26 Temperature 97.7 F Pulse Rate 107 H 66 Respiratory 17 18 Rate Blood Pressure 147/94 134/76 O2 Sat by Pulse 99 97 Oximetry Disposition Clinical Impression: Chest pain Disposition: ADMITTED IP TO THIS HOSP Condition: Fair Instructions: Chest Pain (ED) Referrals: Junie New MD [Primary Care Provider] - 1-2 days
[2018-06-06] MEDS ORDERED: INSULIN REGULAR 100 UNIT/ML VIAL SQ STA (06:58)
[2018-06-06] MEDS ORDERED: NITROGLYCERIN SL TABS 0.4 MG TAB SUBLINGUAL PRN (07:01)
[2018-06-06] MEDS ORDERED: traMADol 50 MG TAB PO PRN (07:04)
[2018-06-06] MEDS ORDERED: hydrOXYzine PAMOATE 25 MG CAP PO PRN (07:04)
[2018-06-06] MEDS ORDERED: ALBUTEROL NEBULIZED 2.5 MG/3 ML INHALATION PRN (07:04)
[2018-06-06] MEDS ORDERED: DIGOXIN 125 MCG TAB PO SCH (08:00)
[2018-06-06] MEDS ORDERED: SPIRONOLACTONE 25 MG TAB PO SCH (08:00)
[2018-06-06] MEDS ORDERED: METOPROLOL SUCCINATE (ER) 25 MG TAB.ER.24H PO SCH (08:00)
[2018-06-06] MEDS ORDERED: ISOSORBIDE MONONITRATE ER 30 MG TAB.ER.24H PO SCH (09:00)
[2018-06-06] MEDS ORDERED: TORSEMIDE 20 MG TAB PO SCH (09:00)
[2018-06-06] MEDS ORDERED: ASPIRIN 81 MG PO SCH (09:00)
[2018-06-06] MEDS ORDERED: DULoxetine HCL 60 MG CAPSULE.DR PO SCH (09:00)
[2018-06-06] MEDS ORDERED: PRIMIDONE 50 MG TAB PO SCH (09:00)
[2018-06-06] MEDS: INSULIN ASPART 100 UNIT/ML 1 ML 10 ML VIAL SQ SCH ×2 (09:13→11:54)
--- NOTE | 2018-06-06 11:45 | P.CRDCN ---
History of Present Illness History of present illness: This is a pleasant 41-year-old male with significant past medical history for coronary artery disease status post multiple angioplasties, ischemic cardiomyopathy status post AICD, hypertension, dyslipidemia, diabetes mellitus and obstructive sleep apnea. He follows with a citrus picker at [facility]. Wheezing is seen in consultation for chest pain. He states he woke up at 0300 with heavy pressure in the chest like elephant sitting on the chest with shortness of breath, wheezing and nausea. He used his inhaler and states that his wheezing subsided however he continues to have a heavy pressure sensation in the chest. He denies associated dizziness, vomiting or palpitations. He recently suffered an acute CVA and was seen and evaluated at [facility] and subsequently transferred to tertiary care center where he underwent TPA infusion. EKG reveals atrial paced rhythm. Chest x-ray negative for acute cardiopulmonary process. Laboratory data reviewed, WBC 5.6, hemoglobin 11.9, platelets 211, sodium 132, potassium 4.6, creatinine 0.93, magnesium 1.7, cardiac enzymes negative 1. Current cardiac medications include aspirin 81 mg daily, Plavix 75 mg daily, digoxin 125 g daily, lisinopril 5 mg daily, Toprol 25 mg daily, rosuvastatin 40 mg daily and Aldactone 25 mg daily. Most recent echocardiogram obtained March 2018 reveals ejection fraction 20- 25% with severe global hypokinesia consistent with previous echocardiograms. He states he underwent recent angioplasty in October 2017 with his primary citrus picker at [facility]. His exact records are unavailable at this time. At the time of my exam: CONSTITUTIONAL: Denies fever. Denies chills. EYES: Denies blurred vision. Denies vision changes. Denies eye pain. EARS, NOSE, MOUTH & THROAT: Denies headache. Denies sore throat. Denies ear pain. CARDIOVASCULAR: Complains of chest pain. Denies shortness of breath. Denies orthopnea. Denies PND. Denies palpitations. RESPIRATORY: Denies cough. GASTROINTESTINAL: Denies abdominal pain. Denies diarrhea. Denies constipation. Denies nausea. Denies vomiting. MUSCULOSKELETAL: Denies myalgias. INTEGUMENTARY: Denies pruitis. Denies rash. NEUROLOGIC: Denies numbness. Denies tingling. Denies weakness. PSYCHIATRIC: Denies anxiety. Denies depression. ENDOCRINE: Denies fatigue. Denies weight change. Denies polydipsia. Denies polyurina. GENITOURINARY: Denies burning, hematuria or urgency with micturation. HEMATOLOGIC: Denies history of anemia. Denies bleeding. Blood pressure 140/81 heart rate 102 afebrile maintaining oxygen saturation on room air GENERAL: This is a 42-year-old male in no apparent distress at the time of my examination. HEENT: Head is atraumatic, normocephalic. Pupils are equal, round. Sclerae anicteric. Conjunctivae are clear. Mucous membranes of the mouth are moist. Neck is supple. There is no jugular venous distention. No carotid bruit is heard. LUNGS: Clear to auscultation no wheezes, rales or rhonchi. No chest wall tenderness is noted on palpation or with deep breathing. Diminished bilaterally. HEART: Regular rate and rhythm without murmurs, rubs or gallops. S1 and S2 heard. ABDOMEN: Soft, nontender. Bowel sounds are heard. No organomegaly noted. EXTREMITIES: No evidence of peripheral edema and no calf tenderness noted. VASCULAR: Radial and dorsalis pedis pulses palpated, no evidence of clubbing. NEUROLOGIC: Patient is awake, alert and oriented x3. ASSESSMENT Chest pain, atypical for angina. Chronic chest pain. History of coronary artery disease status post multiple angioplasties Chronic ischemic cardiomyopathy Chronic systolic heart failure, currently euvolemic History of AICD implantation Recent ischemic CVA April 2018 Hypertension Dyslipidemia Diabetes mellitus PLAN Continue to obtain serial cardiac enzymes to rule out an acute event. Continue aspirin, Plavix, lisinopril, Toprol, rosuvastatin, Aldactone and digoxin as previously ordered. Recommend optimizing his medical therapy, imdur has been added per ED physician. Patient was previously on imdur and ranexa in the past. If acute event has been ruled out, he may be discharged to follow up with his primary citrus picker. Thank you kindly for this consultation. The above impression and plan of care have been discussed and directed by the signing physician. Sarahy Hdez, nurse practitioner, acting as scribe for signing physician. Past Medical History Past Medical History: Asthma, Coronary Artery Disease (CAD), Chest Pain / Angina , Heart Failure, CVA/TIA, Diabetes Mellitus, Deep Vein Thrombosis (DVT), GERD/ Reflux, Hyperlipidemia, Hypertension, Myocardial Infarction ([place]), Osteoarthritis (OA), Pneumonia, Skin Disorder, Sleep Apnea/CPAP/BIPAP Additional Past Medical History / Comment(s): multiple vessel CAD, ischemic cardiomyopathy, diabetic neuropathy bilateral hands and feet, hypertensive cardiovascular disease, SHELIA with no device, chronic gastritis, degenerative disc disease, chronic back pain, depression with hx of suicide attempts, gastroparesis, psoriasis, UTI, migraines, TIA, PUD, hiatal hernia, L rotator cuff tear, bronchitis, pseudoaneurysm L groin post procedure. 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 Date of Last Stent Placement:: 10/2017 Type of Cardiac Device: Biventricular Pacemaker, AICD Device Placement Date:: 09/19/15 Past Psychological History: Anxiety, Depression, PTSD Smoking Status: Never smoker Past Alcohol Use History: None Reported Past Drug Use History: None Reported - Past Family History Mother Family Medical History: Coronary Artery Disease (CAD), Myocardial Infarction ([place] ) Additional Family Medical History / Comment(s): 7 [place] and faulty heart valve. Pt does not know the age when mother had her FL's. Father History Unknown: Yes Additional Family Medical History / Comment(s): Does not know who father is. Brother(s) Family Medical History: Cancer, Congestive Heart Failure (CHF), Myocardial Infarction ([place]) Additional Family Medical History / Comment(s): Parkinsons. Pt does not know at what age his brother had an FL. Patient's other brother has lung CA Patient has Family Medical History: No Reported History Additional Family Medical History / Comment(s): There is a strong family history for heart disease, hypertension, and diabetes. Medications and Allergies Home Medications Medication Instructions Recorded Confirmed Type Clopidogrel [Plavix] 75 mg PO HS 12/03/17 06/06/18 History Metoprolol Succinate [Toprol XL] 25 mg PO DAILY@0800 12/03/17 06/06/18 History Digoxin [Digitek] 125 mcg PO DAILY@0800 02/01/18 06/06/18 History Gabapentin [Neurontin] 400 mg PO TID@0600,1400,2100 02/01/18 06/06/18 History Spironolactone [Aldactone] 25 mg PO DAILY@0800 02/01/18 06/06/18 History Aspirin 81 mg PO DAILY chew 02/03/18 06/06/18 Rx Albuterol Inhaler [Ventolin Hfa 2 puff INHALATION RT-Q6H PRN 04/01/18 06/06/18 History Inhaler] Pantoprazole [Protonix] 40 mg PO DAILY 04/01/18 06/06/18 History Primidone [Mysoline] 100 mg PO BID 04/01/18 06/06/18 History Nitroglycerin Sl Tabs [Nitrostat] 0.4 mg SUBLINGUAL Q5M PRN tab 04/09/18 Rx Insulin Aspart [NovoLOG 7 unit SQ AC-TID #0 04/24/18 06/06/18 Rx (formulary)] DULoxetine HCL [Cymbalta] 60 mg PO BID capsule. 05/10/18 06/06/18 Rx Insulin Glargine [Lantus] 27 unit SQ HS 06/06/18 06/06/18 History Lisinopril [Zestril] 5 mg PO DAILY 06/06/18 06/06/18 History Paliperidone IM [Invega Sustenna] 234 mg IM Q28D 06/06/18 06/06/18 History Rosuvastatin Calcium [Crestor] 40 mg PO DAILY 06/06/18 06/06/18 History hydrOXYzine PAMOATE [Vistaril] 50 mg PO HS 06/06/18 06/06/18 History Allergies Allergy/AdvReac Type Severity Reaction Status Date / Time erythromycin base Allergy Severe Rash/Hives Verified 06/06/18 05:07 [Erythromycin Base] cephalexin monohydrate Allergy Unknown Rash/Hives Verified 06/06/18 05:07 [From Keflex] codeine Allergy Unknown Unknown Verified 06/06/18 05:07 meclizine Allergy Unknown Unknown Verified 06/06/18 05:07 Penicillins Allergy Unknown Rash/Hives Verified 06/06/18 05:07 shellfish derived Allergy Unknown Anaphylaxis Verified 06/06/18 05:07 Fish Containing Products Allergy Anaphylaxis Verified 06/06/18 05:07 [Fish] Iodinated Contrast- Oral and Allergy Anaphylaxis Verified 06/06/18 05:07 IV Dye naproxen AdvReac Unknown Compromises Verified 06/06/18 05:07 Kidney Function atorvastatin calcium AdvReac Myalgia Verified 06/06/18 05:07 [From Lipitor] hydrocodone [From [place]] AdvReac Rapid Verified 06/06/18 05:07 Heart Rate Physical Exam Vitals: Vital Signs Temp Pulse Pulse Resp BP BP Pulse Ox 06/06/18 08:06 97.8 F 102 H 18 140/81 93 L 06/06/18 07:43 105 H 18 143/87 06/06/18 06:26 66 18 134/76 97 06/06/18 05:04 97.7 F 107 H 17 147/94 99 Intake and Output 06/05/18 06/06/18 06/06/18 22:59 06:59 14:59 Other: Weight 108.862 kg 109.5 kg Results 06/06/18 05:39 06/06/18 05:39 Cardiac Enzymes 06/06/18 06/06/18 Range/Units 05:39 05:39 AST 25 (17-59) U/L CK-MB (CK-2) 2.3 (0.0-2.4) ng/mL Troponin I 0.034 (0.000-0.034) ng/mL Coagulation 06/06/18 Range/Units 05:39 PT 11.1 (9.0-12.0) sec APTT 22.4 (22.0-30.0) sec CBC 06/06/18 Range/Units 05:39 WBC 5.6 (3.8-10.6) k/uL RBC 4.57 (4.30-5.90) m/uL Hgb 11.9 L (13.0-17.5) gm/dL Hct 38.7 L (39.0-53.0) % Plt Count 211 (150-450) k/uL Comprehensive Metabolic Panel 06/06/18 Range/Units 05:39 Sodium 132 L (137-145) mmol/L Potassium 4.6 (3.5-5.1) mmol/L Chloride 99 (98-107) mmol/L Carbon Dioxide 25 (22-30) mmol/L BUN 22 H (9-20) mg/dL Creatinine 0.93 (0.66-1.25) mg/dL Glucose 331 H (74-99) mg/dL Calcium 9.8 (8.4-10.2) mg/dL AST 25 (17-59) U/L ALT 32 (21-72) U/L Alkaline Phosphatase 172 H (38-126) U/L Total Protein 6.1 L (6.3-8.2) g/dL Albumin 3.4 L (3.5-5.0) g/dL Current Medications Generic Name Dose Route Start Last Admin Trade Name Freq PRN Reason Stop Dose Admin Albuterol Sulfate 2.5 mg 06/06/18 07:04 Ventolin Nebulized INHALATION RT-Q6H PRN Shortness Of Breath Aspirin 81 mg 06/06/18 09:00 Aspirin PO DAILY [facility] Clopidogrel Bisulfate 75 mg 06/06/18 21:00 Plavix PO HS [facility] Digoxin 125 mcg 06/06/18 08:00 Lanoxin PO DAILY@0800 [facility] Duloxetine HCl 60 mg 06/06/18 09:00 Cymbalta PO BID [facility] Gabapentin 400 mg 06/06/18 14:00 Neurontin PO TID@0600,1400,2100 [facility] Hydroxyzine Pamoate 50 mg 06/06/18 07:04 Vistaril PO TID PRN Anxiety Insulin Aspart 7 unit 06/06/18 07:30 Novolog SQ AC-TID [facility] Insulin Detemir 35 unit 06/06/18 21:00 Levemir SQ HS [facility] Isosorbide Mononitrate 30 mg 06/06/18 09:00 Imdur PO DAILY [facility] Metoprolol Succinate 25 mg 06/06/18 08:00 Toprol Xl PO DAILY@0800 [facility] Nitroglycerin 0.4 mg 06/06/18 07:01 06/06/18 07:42 Nitrostat SUBLINGUAL 0.4 mg Q5M PRN Administration Chest Pain Patient's Own Med ( 40 mg 06/06/18 21:00 Rosuvastatin 40 Mg) PO HS@2100 [facility] Pantoprazole Sodium 40 mg 06/07/18 07:30 Protonix PO AC-BRKFST [facility] Primidone 100 mg 06/06/18 09:00 Mysoline PO BID [facility] Sodium Chloride 10 ml 06/06/18 09:00 Saline Flush IV BID [facility] Spironolactone 25 mg 06/06/18 08:00 Aldactone PO DAILY@0800 [facility] Torsemide 40 mg 06/06/18 09:00 Demadex PO BID@0900,1600 [facility] Tramadol HCl 50 mg 06/06/18 07:04 Ultram PO Q6H PRN chest pain Intake and Output 06/05/18 06/06/18 06/06/18 22:59 06:59 14:59 Other: Weight 108.862 kg 109.5 kg Patient Weight 06/07/18 06:59 Weight 109.5 kg 06/06/18 05:39 06/06/18 05:39
[2018-06-06 11:50] LABS: Glucose,Whole Blood 306 mg/dL (75-99)
[2018-06-06 11:51] VITALS: BP 114/65; PULSE 95; TEMP 97.7
--- NOTE | 2018-06-06 12:44 | P.HPIM ---
History of Present Illness 42-year-old well-known patient to cardiology and ks came in with compensative chest pressure like sensation constant day he still complaining of chest pressure. Patient had significant cardiac history including multiple angioplasties ischemic 30 myopathy with an ACD in place hypertension dyslipidemia. Patient is also known to come to the hospital for morphine. Patient denied any diaphoresis patient stays he still has a lot of pain and requesting morphine at this time. Patient denied any fever chills patient had any cough patient has mild hyponatremia and mild tachycardia asked him to hold off 2 nights Decadron and resume his Decadron tomorrow morning. Patient was alert by cardiology once at of troponin is negative we will obtain another set of troponin of that is negative since cardiology cleared him patient will be discharged. Some object daily there is no evidence of acute myocardial infarction at this time EKG did not show any significant abnormality. A 60 did not show any significant abnormality there is no pulmonary edema Review of Systems REVIEW OF SYSTEMS: CONSTITUTIONAL: No fever, no malaise, no fatigue. HEENT: No recent visual problems or hearing problems. Denied any sore throat. CARDIOVASCULAR: No orthopnea, PND, no palpitations, no syncope. PULMONARY: No shortness of breath, no cough, no hemoptysis. GASTROINTESTINAL: No diarrhea, no nausea, no vomiting, no abdominal pain. NEUROLOGICAL: No headaches, no weakness, no numbness. HEMATOLOGICAL: Denies any bleeding or petechiae. GENITOURINARY: Denies any burning micturition, frequency, or urgency. MUSCULOSKELETAL/RHEUMATOLOGICAL: Denies any joint pain, swelling, or any muscle pain. ENDOCRINE: Denies any polyuria or polydipsia. The rest of the 14-point review of systems is negative. Past Medical History Past Medical History: Asthma, Coronary Artery Disease (CAD), Chest Pain / Angina , Heart Failure, CVA/TIA, Diabetes Mellitus, Deep Vein Thrombosis (DVT), GERD/ Reflux, Hyperlipidemia, Hypertension, Myocardial Infarction (KS), Osteoarthritis (OA), Pneumonia, Skin Disorder, Sleep Apnea/CPAP/BIPAP Additional Past Medical History / Comment(s): multiple vessel CAD, ischemic cardiomyopathy, diabetic neuropathy bilateral hands and feet, hypertensive cardiovascular disease, SHELIA with no device, chronic gastritis, degenerative disc disease, chronic back pain, depression with hx of suicide attempts, gastroparesis, psoriasis, UTI, migraines, TIA, PUD, hiatal hernia, L rotator cuff tear, bronchitis, pseudoaneurysm L groin post procedure. 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 Last Myocardial Infarction Date:: October 2017 History of Any Multi-Drug Resistant Organisms: MRSA Date of last positivie culture/infection: 11/05/2017 (Culture done at [facility]) MDRO Source:: legs Past Surgical History: AICD, Appendectomy, Cholecystectomy, Heart Catheterization With Stent, Hernia Repair Additional Past Surgical History / Comment(s): Pt has had multiple cardiac procedures- caths/stents/PTCA, last stent placed at [facility] -October2017, SAVANNAH, R inguinal hernia repair, umbilical hernia repair, right orchiectomy due to necrosis, right hand surgery r/t injury, colonoscopy, cystoscopy (scraped bladder parrish), stents 10/2017, Past Anesthesia/Blood Transfusion Reactions: No Reported Reaction Additional Past Anesthesia/Blood Transfusion Reaction / Comment(s): . Date of Last Stent Placement:: 10/2017 Type of Cardiac Device: Biventricular Pacemaker, AICD Device Placement Date:: 09/19/15 Past Psychological History: Anxiety, Depression, PTSD Smoking Status: Never smoker Past Alcohol Use History: None Reported Past Drug Use History: None Reported - Past Family History Mother Family Medical History: Coronary Artery Disease (CAD), Myocardial Infarction (KS ) Additional Family Medical History / Comment(s): 7 KS and faulty heart valve. Pt does not know the age when mother had her KS's. Father History Unknown: Yes Additional Family Medical History / Comment(s): Does not know who father is. Brother(s) Family Medical History: Cancer, Congestive Heart Failure (CHF), Myocardial Infarction (KS) Additional Family Medical History / Comment(s): Parkinsons. Pt does not know at what age his brother had an KS. Patient's other brother has lung CA Patient has Family Medical History: No Reported History Additional Family Medical History / Comment(s): There is a strong family history for heart disease, hypertension, and diabetes. Medications and Allergies Home Medications Medication Instructions Recorded Confirmed Type Clopidogrel [Plavix] 75 mg PO HS 12/03/17 06/06/18 History Metoprolol Succinate [Toprol XL] 25 mg PO DAILY@0800 12/03/17 06/06/18 History Digoxin [Digitek] 125 mcg PO DAILY@0800 02/01/18 06/06/18 History Gabapentin [Neurontin] 400 mg PO TID@0600,1400,2100 02/01/18 06/06/18 History Spironolactone [Aldactone] 25 mg PO DAILY@0800 02/01/18 06/06/18 History Aspirin 81 mg PO DAILY chew 02/03/18 06/06/18 Rx Albuterol Inhaler [Ventolin Hfa 2 puff INHALATION RT-Q6H PRN 04/01/18 06/06/18 History Inhaler] Pantoprazole [Protonix] 40 mg PO DAILY 04/01/18 06/06/18 History Primidone [Mysoline] 100 mg PO BID 04/01/18 06/06/18 History Nitroglycerin Sl Tabs [Nitrostat] 0.4 mg SUBLINGUAL Q5M PRN tab 04/09/18 Rx Insulin Aspart [NovoLOG 7 unit SQ AC-TID #0 04/24/18 06/06/18 Rx (formulary)] DULoxetine HCL [Cymbalta] 60 mg PO BID capsule. 05/10/18 06/06/18 Rx Insulin Glargine [Lantus] 27 unit SQ HS 06/06/18 06/06/18 History Lisinopril [Zestril] 5 mg PO DAILY 06/06/18 06/06/18 History Paliperidone IM [Invega Sustenna] 234 mg IM Q28D 06/06/18 06/06/18 History Rosuvastatin Calcium [Crestor] 40 mg PO DAILY 06/06/18 06/06/18 History hydrOXYzine PAMOATE [Vistaril] 50 mg PO HS 06/06/18 06/06/18 History Allergies Allergy/AdvReac Type Severity Reaction Status Date / Time erythromycin base Allergy Severe Rash/Hives Verified 06/06/18 05:07 [Erythromycin Base] cephalexin monohydrate Allergy Unknown Rash/Hives Verified 06/06/18 05:07 [From Keflex] codeine Allergy Unknown Unknown Verified 06/06/18 05:07 meclizine Allergy Unknown Unknown Verified 06/06/18 05:07 Penicillins Allergy Unknown Rash/Hives Verified 06/06/18 05:07 shellfish derived Allergy Unknown Anaphylaxis Verified 06/06/18 05:07 Fish Containing Products Allergy Anaphylaxis Verified 06/06/18 05:07 [Fish] Iodinated Contrast- Oral and Allergy Anaphylaxis Verified 06/06/18 05:07 IV Dye naproxen AdvReac Unknown Compromises Verified 06/06/18 05:07 Kidney Function atorvastatin calcium AdvReac Myalgia Verified 06/06/18 05:07 [From Lipitor] hydrocodone [From [place]] AdvReac Rapid Verified 06/06/18 05:07 Heart Rate Physical Exam Vitals: Vital Signs Temp Pulse Pulse Resp BP BP Pulse Ox 06/06/18 11:50 97.7 F 95 18 114/65 96 06/06/18 08:43 109 H 06/06/18 08:06 97.8 F 102 H 18 140/81 93 L 06/06/18 07:43 105 H 18 143/87 06/06/18 06:26 66 18 134/76 97 06/06/18 05:04 97.7 F 107 H 17 147/94 99 Intake and Output 06/05/18 06/06/18 06/06/18 22:59 06:59 14:59 Intake Total 240 Balance 240 Intake: Oral 240 Other: Voiding Method Toilet Weight 108.862 kg 109.5 kg PHYSICAL EXAMINATION: GENERAL: The patient is alert and oriented x3, not in any acute distress. Obese HEENT: Pupils are round and equally reacting to light. EOMI. No scleral icterus. No conjunctival pallor. Normocephalic, atraumatic. No pharyngeal erythema. No thyromegaly. CARDIOVASCULAR: S1 and S2 present. No murmurs, rubs, or gallops. PULMONARY: Chest is clear to auscultation, no wheezing or crackles. ABDOMEN: Soft, nontender, nondistended, normoactive bowel sounds. No palpable organomegaly. MUSCULOSKELETAL: No joint swelling or deformity. EXTREMITIES: No cyanosis, clubbing, or pedal edema. NEUROLOGICAL: Gross neurological examination did not reveal any focal deficits. SKIN: No rashes. Results CBC & Chem 7: 06/06/18 05:39 06/06/18 05:39 Labs: Abnormal Lab Results - Last 24 Hours (Table) 06/06/18 06/06/18 06/06/18 Range/Units 05:39 05:39 11:46 Hgb 11.9 L (13.0-17.5) gm/dL Hct 38.7 L (39.0-53.0) % MCHC 30.7 L (31.0-37.0) g/dL RDW 16.4 H (11.5-15.5) % Sodium 132 L (137-145) mmol/L BUN 22 H (9-20) mg/dL Glucose 331 H (74-99) mg/dL POC Glucose (mg/dL) 306 H (75-99) mg/dL Alkaline Phosphatase 172 H (38-126) U/L Total Protein 6.1 L (6.3-8.2) g/dL Albumin 3.4 L (3.5-5.0) g/dL Thrombosis Risk Factor Assmnt - Choose All That Apply Any of the Below Risk Factors Present?: Yes Each Factor Represents 1 point: Age 41-60 years, Obesity (BMI >25) Other Risk Factors: No Thrombosis Risk Factor Assessment Total Risk Factor Score: 2 Thrombosis Risk Factor Assessment Level: Low Risk Assessment and Plan Plan: Chest pain: Will be discharged home once we rule out a concurrent syndromes patient was evaluated by cardiology patient has this chronic chest pain. appears to be malingering for Morphine. -Ischemic cardiomyopathy patient is euvolemic to hypovolemic because of some mild hyponatremia and I believe his hypovolemic clinically has hypovolemic hold a dose of Decadron follow-up with primary care physician. -Chronic systolic dysfunction without any acute exacerbation -Several vascular accident in the past Hypertension Hyperlipidemia type 2 diabetes mellitus -Gastroesophageal reflux disease -DVT in the past -Sleep apnea -Obesity Patient will be discharged today after second set of troponin and EKG
--- NOTE | 2018-06-06 12:45 | P.DS ---
Providers Date of admission: 06/06/18 07:04 Attending physician: Safia Clay Consults: 06/06/18 07:01 Consult Physician Routine Consulting Provider: Judi Jordan Consult Reason/Comments: chest pain Do you want consulting provider notified?: Yes Primary care physician: [facility] Course: Refer to my HPI Patient Condition at Discharge: Fair Plan - Discharge Summary New Discharge Prescriptions: No Action Metoprolol Succinate [Toprol XL] 25 mg PO DAILY@0800 Clopidogrel [Plavix] 75 mg PO HS Digoxin [Digitek] 125 mcg PO DAILY@0800 Gabapentin [Neurontin] 400 mg PO TID@0600,1400,2100 Spironolactone [Aldactone] 25 mg PO DAILY@0800 Aspirin 81 mg PO DAILY chew Albuterol Inhaler [Ventolin Hfa Inhaler] 2 puff INHALATION RT-Q6H PRN PRN Reason: Shortness Of Breath Primidone [Mysoline] 100 mg PO BID Pantoprazole [Protonix] 40 mg PO DAILY Nitroglycerin Sl Tabs [Nitrostat] 0.4 mg SUBLINGUAL Q5M PRN tab PRN Reason: Chest Pain Insulin Aspart [NovoLOG (formulary)] 7 unit SQ AC-TID #0 DULoxetine HCL [Cymbalta] 60 mg PO BID capsule. Insulin Glargine [Lantus] 27 unit SQ HS Paliperidone IM [Invega Sustenna] 234 mg IM Q28D Rosuvastatin Calcium [Crestor] 40 mg PO DAILY hydrOXYzine PAMOATE [Vistaril] 50 mg PO HS Lisinopril [Zestril] 5 mg PO DAILY Discharge Medication List Clopidogrel [Plavix] 75 mg PO HS 12/03/17 [History] Metoprolol Succinate [Toprol XL] 25 mg PO DAILY@0800 12/03/17 [History] Digoxin [Digitek] 125 mcg PO DAILY@0800 02/01/18 [History] Gabapentin [Neurontin] 400 mg PO TID@0600,1400,2100 02/01/18 [History] Spironolactone [Aldactone] 25 mg PO DAILY@0800 02/01/18 [History] Aspirin 81 mg PO DAILY chew 02/03/18 [Rx] Albuterol Inhaler [Ventolin Hfa Inhaler] 2 puff INHALATION RT-Q6H PRN 04/01/18 [ History] Pantoprazole [Protonix] 40 mg PO DAILY 04/01/18 [History] Primidone [Mysoline] 100 mg PO BID 04/01/18 [History] Nitroglycerin Sl Tabs [Nitrostat] 0.4 mg SUBLINGUAL Q5M PRN tab 04/09/18 [Rx] Insulin Aspart [NovoLOG (formulary)] 7 unit SQ AC-TID #0 04/24/18 [Rx] DULoxetine HCL [Cymbalta] 60 mg PO BID capsule. 05/10/18 [Rx] Insulin Glargine [Lantus] 27 unit SQ HS 06/06/18 [History] Lisinopril [Zestril] 5 mg PO DAILY 06/06/18 [History] Paliperidone IM [Invega Sustenna] 234 mg IM Q28D 06/06/18 [History] Rosuvastatin Calcium [Crestor] 40 mg PO DAILY 06/06/18 [History] hydrOXYzine PAMOATE [Vistaril] 50 mg PO HS 06/06/18 [History] Follow up Appointment(s)/Referral(s): Junie New MD [Primary Care Provider] - 3 Days Patient Instructions/Handouts: Chest Pain (ED) Activity/Diet/Wound Care/Special Instructions: Hold afternoon dose of Torsemide then restart in am on Thursday Discharge Disposition: HOME SELF-CARE
[2018-06-06] MEDS ORDERED: GABAPENTIN 400 MG CAP PO SCH (14:00)
[2018-06-06] MEDS ORDERED: INSULIN DETEMIR 100 UNIT/ML 10 ML VIAL SQ SCH ×2 (21:00)
[2018-06-06] MEDS ORDERED: ROSUVASTATIN 40 MG PO SCH (21:00)
[2018-06-06] MEDS ORDERED: CLOPIDOGREL 75 MG TAB PO SCH (21:00)
[2018-06-07] MEDS ORDERED: PANTOPRAZOLE 40 MG TABLET PO SCH (07:30)
[2018-06-07] MEDS ORDERED: LISINOPRIL 5 MG TAB PO SCH (09:00)
[2018-06-07] MEDS ORDERED: ASPIRIN 325 MG TAB PO SCH (09:00)
== END 2018-06-06 13:15 | disposition home or self-care (01) ==
LOC: EC 05:01 → 1SOBS 07:04
PROVIDERS: ADMIT Hospitalist; ATTEND Hospitalist
DX: R07.89 Other chest pain (principal); G89.29 Other chronic pain; Z76.5 Malingerer [conscious simulation]; I25.10 Atherosclerotic heart disease of native coronary artery without angina pectoris; I11.0 Hypertensive heart disease with heart failure; I50.22 Chronic systolic (congestive) heart failure; I25.5 Ischemic cardiomyopathy; E11.40 Type 2 diabetes mellitus with diabetic neuropathy, unspecified; E78.5 Hyperlipidemia, unspecified; E87.1 Hypo-osmolality and hyponatremia; J45.909 Unspecified asthma, uncomplicated; G47.33 Obstructive sleep apnea (adult) (pediatric); M19.90 Unspecified osteoarthritis, unspecified site; L40.9 Psoriasis, unspecified; M54.9 Dorsalgia, unspecified; K21.9 Gastro-esophageal reflux disease without esophagitis; G43.909 Migraine, unspecified, not intractable, without status migrainosus; R00.0 Tachycardia, unspecified; E66.9 Obesity, unspecified; F41.9 Anxiety disorder, unspecified; F43.10 Post-traumatic stress disorder, unspecified; F32.9 Major depressive disorder, single episode, unspecified; Z68.39 Body mass index [BMI] 39.0-39.9, adult; Z79.82 Long term (current) use of aspirin; Z79.4 Long term (current) use of insulin; Z79.02 Long term (current) use of antithrombotics/antiplatelets; Z79.899 Other long term (current) drug therapy; Z88.6 Allergy status to analgesic agent; Z88.1 Allergy status to other antibiotic agents; Z91.041 Radiographic dye allergy status; Z88.5 Allergy status to narcotic agent; Z88.0 Allergy status to penicillin; Z91.013 Allergy to seafood; Z88.8 Allergy status to other drugs, medicaments and biological substances; Z91.018 Allergy to other foods; Z95.810 Presence of automatic (implantable) cardiac defibrillator; Z86.73 Personal history of transient ischemic attack (TIA), and cerebral infarction without residual deficits; I25.2 Old myocardial infarction; Z87.01 Personal history of pneumonia (recurrent); Z99.89 Dependence on other enabling machines and devices; Z91.5 Personal history of self-harm; Z86.14 Personal history of Methicillin resistant Staphylococcus aureus infection; Z90.49 Acquired absence of other specified parts of digestive tract; Z95.5 Presence of coronary angioplasty implant and graft; Z90.79 Acquired absence of other genital organ(s); Z87.11 Personal history of peptic ulcer disease; Z87.19 Personal history of other diseases of the digestive system; Z87.440 Personal history of urinary (tract) infections; Z86.718 Personal history of other venous thrombosis and embolism; Z82.49 Family history of ischemic heart disease and other diseases of the circulatory system; Z80.1 Family history of malignant neoplasm of trachea, bronchus and lung; Z82.0 Family history of epilepsy and other diseases of the nervous system; Z83.3 Family history of diabetes mellitus
CPT/HCPCS: 99285; 36415; 93005; 80053; 82550; 82553; 83735; 84484; 85025; 85610; 85730; 71045; G0378

== ENCOUNTER 2018-06-22 02:33 | Emergency (ER) | payer MEDICARE, OTHER ==
[2018-06-22 03:51] LABS: Anisocytosis Slight; Basophils % (A) 1 %; Eosinophils # (A) 0.2 k/uL (0-0.7); Eosinophils % (A) 4 %; HCT 38.1 % (39.0-53.0); HGB 12.4 gm/dL (13.0-17.5); Lymphocytes % (A) 18 %; MCHC 32.7 g/dL (31.0-37.0); MCV 82.6 fL (80.0-100.0); Mean Platelet Volume 6.8; Monocytes # (A) 0.3 k/uL (0-1.0); Monocytes % (A) 5 %; Neutrophils # (A) 3.8 k/uL (1.3-7.7); Neutrophils % (A) 69 %; Platelet Count 203 k/uL (150-450); RBC 4.62 m/uL (4.30-5.90); RDW 16.1 % (11.5-15.5); WBC 5.4 k/uL (3.8-10.6)
[2018-06-22 04:04] LABS: Partial Thromboplastin Time 22.3 sec (22.0-30.0); Prothrombin Time 10.3 sec (9.0-12.0)
[2018-06-22 04:06] LABS: Albumin 3.2 g/dL (3.5-5.0); Magnesium 1.5 mg/dL (1.6-2.3); Potassium 4.5 mmol/L (3.5-5.1); Total Protein 5.7 g/dL (6.3-8.2)
--- NOTE | 2018-06-22 04:08 | XR ---
EXAMINATION TYPE: XR chest 2V DATE OF EXAM: 06/22/2018 COMPARISON: 06/06/2018 HISTORY: Chest pressure TECHNIQUE: Frontal and lateral views of the chest are obtained. FINDINGS: There is no heart failure nor confluent pneumonic infiltrate. There is left axillary pacem gena with the lead tips in the right ventricle. There is no pleural effusion. Bony thorax is intact. IMPRESSION: Cardiomegaly. No active cardiopulmonary disease. No change.
[2018-06-22 04:24] LABS: Creatine Kinase MB 2.4 ng/mL (0.0-2.4); Troponin I 0.032 ng/mL (0.000-0.034)
[2018-06-22 04:27] LABS: D-Dimer 0.68 mg/L FEU (<0.60)
[2018-06-22] MEDS ORDERED: SODIUM CHLORIDE 0.9% 1,000 ML IV ONE (04:34)
[2018-06-22] MEDS ORDERED: MAGNESIUM SULFATE-D5W PMX 1 GM in DEXTROSE/WATER 1 100ML.BAG IVPB ONE (04:34)
[2018-06-22] MEDS ORDERED: INSULIN REGULAR 100 UNIT/ML VIAL IV ONE (04:34)
[2018-06-22] MEDS ORDERED: FAMOTIDINE 20 MG/2 ML VIAL IV STA (04:48)
[2018-06-22] MEDS ORDERED: methylPREDNISolone SOD SUCCI 125 MG/2 ML VIAL IV STA (04:48)
[2018-06-22] MEDS ORDERED: diphenhydrAMINE 50 MG/ML 1 ML VIAL IVP STA (04:48)
--- NOTE | 2018-06-22 05:32 | CT ---
EXAMINATION TYPE: CT chest angio for PE DATE OF EXAM: 06/22/2018 COMPARISON: 12/15/2011 HISTORY: CHEST PAIN CT DLP: 561.20 mGycm Automated exposure control for dose reduction was used. CONTRAST: CT Chest for pulmonary embolism performed with with IV Contrast, patient injected with 70 mL of Isovu e 370. There are 3-D post processed images. FINDINGS: There are few mediastinal lymph nodes measure up to 1.5 cm. There are no hilar masses. There is no pl eural effusion. Heart is enlarged. There is no pericardial effusion. I see no definite filling defect s in the pulmonary arteries. Thoracic aorta shows no aneurysm or dissection. The bony thorax is intact. The lungs are clear of consolidation. There is subsegmental atelectasis at the lung bases. IMPRESSION: No evidence of pulmonary embolism. Cardiomegaly. Subsegmental atelectasis. Heart appears increased co mpared to old exam.
--- NOTE | 2018-06-22 06:15 | ED ---
Chest Pain HPI - General Chief Complaint: Chest Pain Stated Complaint: Chest pressure Time Seen by Provider: 06/22/18 02:52 Source: patient Mode of arrival: ambulatory Limitations: no limitations - History of Present Illness Initial Comments: Roly is a 42-year-old male with extensive past medical history presents the emergency department today for evaluation of chest pressure and concerned that he is developing pneumonia. Patient reports that he has been seen and evaluated at this hospital as well as another hospital this month for chest pain. Patient states that he's been suffering from nasal congestion and feels like the congestion is moving at his chest is concerned that he has pneumonia. He reports pressure like sensation throughout his chest and shortness of breath. The patient denies associated symptoms including fevers, chills, nausea, vomiting chest pain exertional symptoms. - Related Data Home Medications Medication Instructions Recorded Confirmed Clopidogrel [Plavix] 75 mg PO HS 12/03/17 06/06/18 Metoprolol Succinate [Toprol XL] 25 mg PO DAILY@0800 12/03/17 06/06/18 Digoxin [Digitek] 125 mcg PO DAILY@0800 02/01/18 06/06/18 Gabapentin [Neurontin] 400 mg PO TID@0600,1400,2100 02/01/18 06/06/18 Spironolactone [Aldactone] 25 mg PO DAILY@0800 02/01/18 06/06/18 Albuterol Inhaler [Ventolin Hfa 2 puff INHALATION RT-Q6H PRN 04/01/18 06/06/18 Inhaler] Pantoprazole [Protonix] 40 mg PO DAILY 04/01/18 06/06/18 Primidone [Mysoline] 100 mg PO BID 04/01/18 06/06/18 Insulin Glargine [Lantus] 27 unit SQ HS 06/06/18 06/06/18 Lisinopril [Zestril] 5 mg PO DAILY 06/06/18 06/06/18 Paliperidone IM [Invega Sustenna] 234 mg IM Q28D 06/06/18 06/06/18 Rosuvastatin Calcium [Crestor] 40 mg PO DAILY 06/06/18 06/06/18 hydrOXYzine PAMOATE [Vistaril] 50 mg PO HS 06/06/18 06/06/18 Previous Rx's Medication Instructions Recorded Aspirin 81 mg PO DAILY chew 02/03/18 Nitroglycerin Sl Tabs [Nitrostat] 0.4 mg SUBLINGUAL Q5M PRN tab 04/09/18 Insulin Aspart [NovoLOG 7 unit SQ AC-TID #0 04/24/18 (formulary)] DULoxetine HCL [Cymbalta] 60 mg PO BID capsule. 05/10/18 Allergies Allergy/AdvReac Type Severity Reaction Status Date / Time erythromycin base Allergy Severe Rash/Hives Verified 06/22/18 02:40 [Erythromycin Base] cephalexin monohydrate Allergy Unknown Rash/Hives Verified 06/22/18 02:40 [From Keflex] codeine Allergy Unknown Unknown Verified 06/22/18 02:40 meclizine Allergy Unknown Unknown Verified 06/22/18 02:40 Penicillins Allergy Unknown Rash/Hives Verified 06/22/18 02:40 shellfish derived Allergy Unknown Anaphylaxis Verified 06/22/18 02:40 Fish Containing Products Allergy Anaphylaxis Verified 06/22/18 02:40 [Fish] Iodinated Contrast- Oral and Allergy Anaphylaxis Verified 06/22/18 02:40 IV Dye naproxen AdvReac Unknown Compromises Verified 06/22/18 02:40 Kidney Function atorvastatin calcium AdvReac Myalgia Verified 06/22/18 02:40 [From Lipitor] hydrocodone [From [place]] AdvReac Rapid Verified 06/22/18 02:40 Heart Rate Review of Systems ROS Statement: Those systems with pertinent positive or pertinent negative responses have been documented in the HPI. ROS Other: All systems not noted in ROS Statement are negative. EKG Findings - EKG Comments: EKG Findings:: EKG obtained at 2:47 AM, there is rate of 98, appears to be in nature a paced rhythm, there is significant respiratory artifact however when compared to EKG from earlier in the month or [place] significant change in morphology. There are no ST elevations or depressions no evidence of acute ischemia or infarction. Past Medical History Past Medical History: Asthma, Coronary Artery Disease (CAD), Chest Pain / Angina , Heart Failure, CVA/TIA, Diabetes Mellitus, Deep Vein Thrombosis (DVT), GERD/ Reflux, Hyperlipidemia, Hypertension, Myocardial Infarction (MS), Osteoarthritis (OA), Pneumonia, Skin Disorder, Sleep Apnea/CPAP/BIPAP Additional Past Medical History / Comment(s): multiple vessel CAD, ischemic cardiomyopathy, diabetic neuropathy bilateral hands and feet, hypertensive cardiovascular disease, SHELIA with no device, chronic gastritis, degenerative disc disease, chronic back pain, depression with hx of suicide attempts, gastroparesis, psoriasis, UTI, migraines, TIA, PUD, hiatal hernia, L rotator cuff tear, bronchitis, pseudoaneurysm L groin post procedure. 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 Last Myocardial Infarction Date:: October 2017 History of Any Multi-Drug Resistant Organisms: MRSA Date of last positivie culture/infection: 11/05/2017 (Culture done at [facility]) MDRO Source:: legs Past Surgical History: AICD, Appendectomy, Cholecystectomy, Heart Catheterization With Stent, Hernia Repair Additional Past Surgical History / Comment(s): Pt has had multiple cardiac procedures- caths/stents/PTCA, last stent placed at [facility] -October2017, SAVANNAH, R inguinal hernia repair, umbilical hernia repair, right orchiectomy due to necrosis, right hand surgery r/t injury, colonoscopy, cystoscopy (scraped bladder parrish), stents 10/2017, Past Anesthesia/Blood Transfusion Reactions: No Reported Reaction Additional Past Anesthesia/Blood Transfusion Reaction / Comment(s): . Date of Last Stent Placement:: 10/2017 Type of Cardiac Device: Biventricular Pacemaker, AICD Device Placement Date:: 09/19/15 Past Psychological History: Anxiety, Depression, PTSD Smoking Status: Never smoker Past Alcohol Use History: None Reported Past Drug Use History: None Reported - Past Family History Mother Family Medical History: Coronary Artery Disease (CAD), Myocardial Infarction (MS ) Additional Family Medical History / Comment(s): 7 MS and faulty heart valve. Pt does not know the age when mother had her MS's. Father History Unknown: Yes Additional Family Medical History / Comment(s): Does not know who father is. Brother(s) Family Medical History: Cancer, Congestive Heart Failure (CHF), Myocardial Infarction (MS) Additional Family Medical History / Comment(s): Parkinsons. Pt does not know at what age his brother had an MS. Patient's other brother has lung CA Patient has Family Medical History: No Reported History Additional Family Medical History / Comment(s): There is a strong family history for heart disease, hypertension, and diabetes. General Exam - General Exam Comments Initial Comments: Physical Exam GENERAL: Patient is well-developed and well-nourished. Patient is nontoxic and well- hydrated and is in no distress. HENT: Normocephalic, Atraumatic. EYES: PERRL, EOMI PULMONARY: Unlabored respirations. No audible rales rhonchi or wheezing was noted. CARDIOVASCULAR: There is a regular rate and rhythm without any murmurs gallops or rubs. ABDOMEN: Soft and nontender with normal bowel sounds. SKIN: Skin is clear with no lesions or rashes and otherwise unremarkable. : Deferred NEUROLOGIC: Patient is alert and oriented x3. Moving all extremities spontaneously MUSCULOSKELETAL: Normal extremities with adequate strength and full range of motion. No lower extremity swelling or edema. No calf tenderness. PSYCHIATRIC: Normal psychiatric evaluation. Limitations: no limitations Limitations: no limitations Course Vital Signs 06/22/18 06/22/18 06/22/18 02:35 03:00 03:03 Temperature 97.6 F Pulse Rate 102 H 95 Respiratory 20 18 20 Rate Blood Pressure 120/81 110/65 O2 Sat by Pulse 96 93 L Oximetry 06/22/18 06/22/18 06/22/18 04:39 05:39 06:00 Temperature 98.1 F Pulse Rate 93 Respiratory 20 20 18 Rate Blood Pressure 120/76 O2 Sat by Pulse 95 Oximetry Chest Pain [facility] The patient was seen and evaluated history is obtained from the patient and review of medical records Patient with chest pressure and shortness of breath was noted be tachycardic on arrival Labs and imaging ordered EKG is unremarkable Chest x-ray no acute findings D-dimer is elevated CT pulmonary embolism was ordered & Patient does report a history of shellfish ALLERGY and requests premedication prior to CTA. Patient was treated with steroids and Benadryl Patient tolerated CTA without difficulty, resulted with no acute findings of pneumonia no evidence of PE Results were discussed with the patient who expresses relief. Considering the patient's been admitted 2 times this month for chest pain evaluation and is not having any chest pain concerning for coronary syndrome or do not feel the patient warrants admission patient is agreeable to plan for discharge home with outpatient follow-up. Disposition Clinical Impression: Pleurisy, Atypical chest pain Disposition: HOME SELF-CARE Condition: Good Instructions (If sedation given, give patient instructions): Chest Pain (ED) Is patient prescribed a controlled substance at d/c from ED?: No Referrals: Junie New MD [Primary Care Provider] - 1-2 days
[2018-06-22 06:57] VITALS: BP 120/76; PULSE 93; RESP 18; TEMP 98.1
== END 2018-06-22 06:59 | disposition home or self-care (01) ==
LOC: EC 02:33
DX: R07.89 Other chest pain (principal); R09.1 Pleurisy; R79.1 Abnormal coagulation profile; R09.81 Nasal congestion; R06.02 Shortness of breath; E78.5 Hyperlipidemia, unspecified; I11.0 Hypertensive heart disease with heart failure; I50.9 Heart failure, unspecified; I25.119 Atherosclerotic heart disease of native coronary artery with unspecified angina pectoris; I25.2 Old myocardial infarction; E11.42 Type 2 diabetes mellitus with diabetic polyneuropathy; K21.9 Gastro-esophageal reflux disease without esophagitis; E11.43 Type 2 diabetes mellitus with diabetic autonomic (poly)neuropathy; K31.84 Gastroparesis; Z88.0 Allergy status to penicillin; Z88.1 Allergy status to other antibiotic agents; Z88.5 Allergy status to narcotic agent; Z88.6 Allergy status to analgesic agent; Z88.8 Allergy status to other drugs, medicaments and biological substances; Z91.013 Allergy to seafood; Z91.041 Radiographic dye allergy status; Z79.02 Long term (current) use of antithrombotics/antiplatelets; Z79.4 Long term (current) use of insulin; Z79.899 Other long term (current) drug therapy; Z86.14 Personal history of Methicillin resistant Staphylococcus aureus infection; Z82.49 Family history of ischemic heart disease and other diseases of the circulatory system; Z86.718 Personal history of other venous thrombosis and embolism; Z95.0 Presence of cardiac pacemaker; Z95.5 Presence of coronary angioplasty implant and graft; Z86.73 Personal history of transient ischemic attack (TIA), and cerebral infarction without residual deficits
CPT/HCPCS: 36415; 93005; 85379; 83880; 80053; 82550; 82553; 83735; 84484; 85025; 85610; 85730; 71046; 71275; 99285; 96365; 96375 ×3; J1200; J2930; J3475; Q9967

== ENCOUNTER 2018-06-29 00:44 | Emergency (ER) | payer MEDICARE, OTHER ==
[2018-06-29 02:35] LABS: Basophils % (A) 1 %; Eosinophils # (A) 0.2 k/uL (0-0.7); Eosinophils % (A) 5 %; HCT 36.9 % (39.0-53.0); HGB 12.2 gm/dL (13.0-17.5); Lymphocytes # (A) 1.3 k/uL (1.0-4.8); Lymphocytes % (A) 26 %; MCV 81.5 fL (80.0-100.0); Mean Platelet Volume 7.4; Monocytes # (A) 0.3 k/uL (0-1.0); Monocytes % (A) 6 %; Neutrophils # (A) 2.9 k/uL (1.3-7.7); Neutrophils % (A) 61 %; Platelet Count 195 k/uL (150-450); RBC 4.52 m/uL (4.30-5.90); RDW 15.7 % (11.5-15.5); WBC 4.8 k/uL (3.8-10.6)
[2018-06-29 02:47] LABS: Albumin 3.1 g/dL (3.5-5.0); Calcium 8.6 mg/dL (8.4-10.2); Magnesium 1.6 mg/dL (1.6-2.3); Total Bilirubin 0.6 mg/dL (0.2-1.3); Total Protein 5.7 g/dL (6.3-8.2)
[2018-06-29 02:48] LABS: INR 0.9 (<1.2); Partial Thromboplastin Time 22.3 sec (22.0-30.0); Prothrombin Time 10.1 sec (9.0-12.0)
[2018-06-29 03:07] LABS: Creatine Kinase MB 3.3 ng/mL (0.0-2.4); Troponin I 0.031 ng/mL (0.000-0.034)
--- NOTE | 2018-06-29 03:07 | XR ---
EXAM: XR Chest, 1 View CLINICAL HISTORY: ITS.REASON XR Reason: chest pain TECHNIQUE: Frontal view of the chest. COMPARISON: 06/22/18 Chest x-ray IMPRESSION: Unchanged arterial megaly. No pulmonary edema. No pleural effusion or pneumothorax. Right basilar atelectasis.
[2018-06-29] MEDS ORDERED: AZITHROMYCIN 500 MG TAB PO STA (03:40)
[2018-06-29] MEDS ORDERED: INSULIN REGULAR 100 UNIT/ML VIAL SQ STA (04:21)
[2018-06-29] MEDS ORDERED: SODIUM CHLORIDE 0.9% 1,000 ML IV ONE (06:17)
[2018-06-29 06:50] LABS: Glucose,Whole Blood 440 mg/dL (75-99)
[2018-06-29] MEDS ORDERED: MORPHINE SULFATE 4 MG/ML SYRINGE IV STA (07:02)
--- NOTE | 2018-06-29 07:18 | ED ---
Chest Pain HPI - General Chief Complaint: Chest Pain Stated Complaint: Chest Pain Time Seen by Provider: 06/29/18 01:44 Source: patient, family Mode of arrival: ambulatory Limitations: no limitations - History of Present Illness Initial Comments: This patient is a 42-year-old man who presents to be evaluated for pain to his chest. He does have long history of cardiac disease but he states that this feels different than his "heart pain." In addition, patient has had cough with a little bit of light yellow sputum. He denies dyspnea. He has not noted fever or chills. No leg pain or swelling. MD Complaint: chest pain Onset/Timin -: days(s) Onset: during rest Pain Location: substernal, left chest, right chest Pain Radiation: none Severity: moderate Quality: aching Consistency: constant Improves With: nothing Worsens With: other (Cough) Other Symptoms: cough Treatments Prior to Arrival: none - Related Data Home Medications Medication Instructions Recorded Confirmed Clopidogrel [Plavix] 75 mg PO HS 12/03/17 06/29/18 Metoprolol Succinate [Toprol XL] 25 mg PO DAILY@0800 12/03/17 06/29/18 Digoxin [Digitek] 125 mcg PO DAILY@0800 02/01/18 06/29/18 Gabapentin [Neurontin] 400 mg PO TID@0600,1400,2100 02/01/18 06/29/18 Spironolactone [Aldactone] 25 mg PO DAILY@0800 02/01/18 06/29/18 Albuterol Inhaler [Ventolin Hfa 2 puff INHALATION RT-Q6H PRN 04/01/18 06/29/18 Inhaler] Pantoprazole [Protonix] 40 mg PO DAILY 04/01/18 06/29/18 Primidone [Mysoline] 100 mg PO BID 04/01/18 06/29/18 Insulin Glargine [Lantus] 27 unit SQ HS 06/06/18 06/29/18 Lisinopril [Zestril] 5 mg PO DAILY 06/06/18 06/29/18 Paliperidone IM [Invega Sustenna] 234 mg IM Q28D 06/06/18 06/29/18 Rosuvastatin Calcium [Crestor] 40 mg PO DAILY 06/06/18 06/29/18 hydrOXYzine PAMOATE [Vistaril] 50 mg PO HS 06/06/18 06/29/18 Previous Rx's Medication Instructions Recorded Aspirin 81 mg PO DAILY chew 02/03/18 Nitroglycerin Sl Tabs [Nitrostat] 0.4 mg SUBLINGUAL Q5M PRN tab 04/09/18 Insulin Aspart [NovoLOG 7 unit SQ AC-TID #0 04/24/18 (formulary)] DULoxetine HCL [Cymbalta] 60 mg PO BID capsule. 05/10/18 Azithromycin [Zithromax Z-pack] 250 mg PO DIRECTED #6 tab 06/29/18 Allergies Allergy/AdvReac Type Severity Reaction Status Date / Time erythromycin base Allergy Severe Rash/Hives Verified 06/29/18 01:22 [Erythromycin Base] cephalexin monohydrate Allergy Unknown Rash/Hives Verified 06/29/18 01:22 [From Keflex] codeine Allergy Unknown Unknown Verified 06/29/18 01:22 meclizine Allergy Unknown Unknown Verified 06/29/18 01:22 Penicillins Allergy Unknown Rash/Hives Verified 06/29/18 01:22 shellfish derived Allergy Unknown Anaphylaxis Verified 06/29/18 01:22 Fish Containing Products Allergy Anaphylaxis Verified 06/29/18 01:22 [Fish] Iodinated Contrast- Oral and Allergy Anaphylaxis Verified 06/29/18 01:22 IV Dye naproxen AdvReac Unknown Compromises Verified 06/29/18 01:22 Kidney Function atorvastatin calcium AdvReac Myalgia Verified 06/29/18 01:22 [From Lipitor] hydrocodone [From [place]] AdvReac Rapid Verified 06/29/18 01:22 Heart Rate Review of Systems ROS Statement: Those systems with pertinent positive or pertinent negative responses have been documented in the HPI. ROS Other: All systems not noted in ROS Statement are negative. Constitutional: Denies: fever, chills ENT: Reports: congestion Respiratory: Reports: as per HPI, cough. Denies: dyspnea, wheezes, hemoptysis Cardiovascular: Reports: as per HPI, chest pain. Denies: palpitations, dyspnea on exertion, orthopnea, edema, syncope Gastrointestinal: Denies: abdominal pain, nausea, vomiting Genitourinary: Denies: dysuria Musculoskeletal: Denies: back pain Skin: Denies: rash Neurological: Denies: headache, weakness EKG Findings - EKG Comments: EKG Findings:: Paced rhythm - EKG Results: EKG: interpreted by ERMD, normal axis, normal QRS, normal ST/T Past Medical History Past Medical History: Asthma, Coronary Artery Disease (CAD), Chest Pain / Angina , Heart Failure, CVA/TIA, Diabetes Mellitus, Deep Vein Thrombosis (DVT), GERD/ Reflux, Hyperlipidemia, Hypertension, Myocardial Infarction (PA), Osteoarthritis (OA), Pneumonia, Skin Disorder, Sleep Apnea/CPAP/BIPAP Additional Past Medical History / Comment(s): multiple vessel CAD, ischemic cardiomyopathy, diabetic neuropathy bilateral hands and feet, hypertensive cardiovascular disease, SHELIA with no device, chronic gastritis, degenerative disc disease, chronic back pain, depression with hx of suicide attempts, gastroparesis, psoriasis, UTI, migraines, TIA, PUD, hiatal hernia, L rotator cuff tear, bronchitis, pseudoaneurysm L groin post procedure. 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 Date of Last Stent Placement:: 10/2017 Type of Cardiac Device: Biventricular Pacemaker, AICD Device Placement Date:: 09/19/15 Past Psychological History: Anxiety, Depression, PTSD Smoking Status: Never smoker Past Alcohol Use History: None Reported Past Drug Use History: None Reported - Past Family History Mother Family Medical History: Coronary Artery Disease (CAD), Myocardial Infarction (PA ) Additional Family Medical History / Comment(s): 7 PA and faulty heart valve. Pt does not know the age when mother had her PA's. Father History Unknown: Yes Additional Family Medical History / Comment(s): Does not know who father is. Brother(s) Family Medical History: Cancer, Congestive Heart Failure (CHF), Myocardial Infarction (PA) Additional Family Medical History / Comment(s): Parkinsons. Pt does not know at what age his brother had an PA. Patient's other brother has lung CA Patient has Family Medical History: No Reported History Additional Family Medical History / Comment(s): There is a strong family history for heart disease, hypertension, and diabetes. General Exam Limitations: no limitations General appearance: alert, in no apparent distress Head exam: Present: atraumatic, normocephalic Eye exam: Present: normal appearance. Absent: scleral icterus, conjunctival injection ENT exam: Present: normal oropharynx Neck exam: Present: normal inspection Respiratory exam: Present: rales, chest wall tenderness. Absent: respiratory distress, wheezes, rhonchi, stridor Cardiovascular Exam: Present: regular rate, normal rhythm, normal heart sounds. Absent: systolic murmur, diastolic murmur, rubs, gallop GI/Abdominal exam: Present: soft. Absent: distended, tenderness, guarding, rebound, mass Extremities exam: Present: normal inspection Back exam: Present: normal inspection. Absent: CVA tenderness (R), CVA tenderness (L) Neurological exam: Present: alert Skin exam: Present: warm, dry, intact, normal color. Absent: rash Course Vital Signs 06/29/18 06/29/18 06/29/18 01:18 06:49 07:30 Temperature 98.5 F Pulse Rate 92 892 H 90 Respiratory 20 0 L 15 Rate Blood Pressure 97/68 94/60 106/66 O2 Sat by Pulse 97 98 98 Oximetry Disposition Clinical Impression: Chest wall pain, Pneumonia Disposition: HOME SELF-CARE Condition: Fair Instructions (If sedation given, give patient instructions): Chest Pain (ED), Pneumonia (ED) Additional Instructions: As we discussed, follow-up with your meter tester polyphase to have your pacemaker evaluated. Return here if there is any difficulty. Prescriptions: Azithromycin [Zithromax Z-pack] 250 mg PO DIRECTED #6 tab Referrals: Junie New MD [Primary Care Provider] - 1-2 days
[2018-06-29 08:16] VITALS: BP 119/69; PULSE 81; RESP 18; TEMP 97.8
== END 2018-06-29 08:13 | disposition home or self-care (01) ==
LOC: EC 00:44
DX: J18.9 Pneumonia, unspecified organism (principal); E78.5 Hyperlipidemia, unspecified; I11.0 Hypertensive heart disease with heart failure; I50.9 Heart failure, unspecified; I25.119 Atherosclerotic heart disease of native coronary artery with unspecified angina pectoris; J45.909 Unspecified asthma, uncomplicated; E11.42 Type 2 diabetes mellitus with diabetic polyneuropathy; E11.43 Type 2 diabetes mellitus with diabetic autonomic (poly)neuropathy; K31.84 Gastroparesis; K21.9 Gastro-esophageal reflux disease without esophagitis; L40.9 Psoriasis, unspecified; F41.9 Anxiety disorder, unspecified; Z88.0 Allergy status to penicillin; Z88.1 Allergy status to other antibiotic agents; Z88.5 Allergy status to narcotic agent; Z88.6 Allergy status to analgesic agent; Z88.8 Allergy status to other drugs, medicaments and biological substances; Z91.013 Allergy to seafood; Z91.041 Radiographic dye allergy status; Z79.02 Long term (current) use of antithrombotics/antiplatelets; Z79.4 Long term (current) use of insulin; Z79.899 Other long term (current) drug therapy; Z86.14 Personal history of Methicillin resistant Staphylococcus aureus infection; Z86.73 Personal history of transient ischemic attack (TIA), and cerebral infarction without residual deficits; Z95.0 Presence of cardiac pacemaker; Z95.5 Presence of coronary angioplasty implant and graft; Z82.49 Family history of ischemic heart disease and other diseases of the circulatory system; Z80.1 Family history of malignant neoplasm of trachea, bronchus and lung
CPT/HCPCS: 99285; 96374; 96361; 36415; 93005; 80053; 82550; 82553; 83735; 84484; 85025; 85610; 85730; 71045; J2270

== ENCOUNTER 2018-07-07 04:29 | Inpatient (IN) | payer MEDICARE, OTHER ==
--- NOTE | 2018-07-07 04:33 | ED ---
Chest Pain HPI - General Stated Complaint: Chest Pain Time Seen by Provider: 07/07/18 04:31 - History of Present Illness Initial Comments: Cesar is a 42-year-old male with extensive past medical history an extensive cardiac history presents the emergency department today via EMS for chest pain. Patient reports he is having trouble falling asleep, he believes he fell asleep between 1 and 2 AM he woke around 3 AM with sudden stabbing left-sided chest pain with radiation to his shoulder and jaw. Patient called EMS he was given aspirin in route to the hospital area patient also noted that he sat a lot of trouble controlling his sugars lately he's been in contact with his primary care and his sustainability analyst frequently lately. Patient reports he's been compliant with this 46 units of Lantus nightly and 16 units of short- acting insulin at meals. Despite this patient's blood glucose was greater than 500 upon arrival. - Related Data Home Medications Medication Instructions Recorded Confirmed Clopidogrel [Plavix] 75 mg PO QAM 12/03/17 06/29/18 Metoprolol Succinate [Toprol XL] 25 mg PO DAILY@0800 12/03/17 06/29/18 Digoxin [Digitek] 125 mcg PO DAILY@0800 02/01/18 06/29/18 Gabapentin [Neurontin] 400 mg PO TID@0600,1400,2100 02/01/18 06/29/18 Spironolactone [Aldactone] 25 mg PO DAILY@0800 02/01/18 06/29/18 Albuterol Inhaler [Ventolin Hfa 2 puff INHALATION RT-Q6H PRN 04/01/18 06/29/18 Inhaler] Pantoprazole [Protonix] 40 mg PO DAILY 04/01/18 06/29/18 Primidone [Mysoline] 100 mg PO BID 04/01/18 06/29/18 Insulin Glargine [Lantus] 27 unit SQ HS 06/06/18 06/29/18 Lisinopril [Zestril] 5 mg PO DAILY 06/06/18 06/29/18 Paliperidone IM [Invega Sustenna] 234 mg IM Q28D 06/06/18 06/29/18 Rosuvastatin Calcium [Crestor] 40 mg PO DAILY 06/06/18 06/29/18 hydrOXYzine PAMOATE [Vistaril] 50 mg PO HS 06/06/18 06/29/18 Insulin NPH Hum/Reg Insulin Hm 6 unit SQ AC-TID 06/29/18 06/29/18 [NovoLIN 70-30 100 UNIT/ML VIAL] Loratadine [Claritin] 10 mg PO DAILY 06/29/18 06/29/18 Promethazine HCl/Codeine 5 ml PO Q6H PRN 06/29/18 06/29/18 [Promethazine-Codeine Syrup] Sulfamethoxazole/Trimethoprim 1 tab PO BID 06/29/18 06/29/18 [Bactrim DS 800-160 mg] Torsemide [Demadex] 40 mg PO BID 06/29/18 06/29/18 traMADol HCL [Ultram] 50 mg PO Q6HR PRN 06/29/18 06/29/18 Previous Rx's Medication Instructions Recorded Aspirin 81 mg PO DAILY chew 02/03/18 Nitroglycerin Sl Tabs [Nitrostat] 0.4 mg SUBLINGUAL Q5M PRN tab 04/09/18 DULoxetine HCL [Cymbalta] 60 mg PO BID capsule. 05/10/18 Doxycycline [Vibramycin] 100 mg PO BID 7 Days #14 capsule 06/29/18 Allergies Allergy/AdvReac Type Severity Reaction Status Date / Time erythromycin base Allergy Severe Rash/Hives Verified 06/29/18 07:50 [Erythromycin Base] cephalexin monohydrate Allergy Unknown Rash/Hives Verified 06/29/18 07:50 [From Keflex] codeine Allergy Unknown Unknown Verified 06/29/18 07:50 meclizine Allergy Unknown Unknown Verified 06/29/18 07:50 Penicillins Allergy Unknown Rash/Hives Verified 06/29/18 07:50 shellfish derived Allergy Unknown Anaphylaxis Verified 06/29/18 07:50 Fish Containing Products Allergy Anaphylaxis Verified 06/29/18 07:50 [Fish] Iodinated Contrast- Oral and Allergy Anaphylaxis Verified 06/29/18 07:50 IV Dye naproxen AdvReac Unknown Compromises Verified 06/29/18 07:50 Kidney Function atorvastatin calcium AdvReac Myalgia Verified 06/29/18 07:50 [From Lipitor] hydrocodone [From [place]] AdvReac Rapid Verified 06/29/18 07:50 Heart Rate Review of Systems ROS Statement: Those systems with pertinent positive or pertinent negative responses have been documented in the HPI. ROS Other: All systems not noted in ROS Statement are negative. EKG Findings - EKG Comments: EKG Findings:: EKG obtained at 4:35 AM rate is 99 rhythm is a ventricular paced rhythm with a rate of 99 there is no acute ST elevations or depressions or evidence of acute ischemia or infarction. Past Medical History Past Medical History: Asthma, Coronary Artery Disease (CAD), Chest Pain / Angina , Heart Failure, CVA/TIA, Diabetes Mellitus, Deep Vein Thrombosis (DVT), GERD/ Reflux, Hyperlipidemia, Hypertension, Myocardial Infarction (UT), Osteoarthritis (OA), Pneumonia, Skin Disorder, Sleep Apnea/CPAP/BIPAP Additional Past Medical History / Comment(s): multiple vessel CAD, ischemic cardiomyopathy, diabetic neuropathy bilateral hands and feet, hypertensive cardiovascular disease, SHELIA with no device, chronic gastritis, degenerative disc disease, chronic back pain, depression with hx of suicide attempts, gastroparesis, psoriasis, UTI, migraines, TIA, PUD, hiatal hernia, L rotator cuff tear, bronchitis, pseudoaneurysm L groin post procedure. 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 Date of Last Stent Placement:: 10/2017 Type of Cardiac Device: Biventricular Pacemaker, AICD Device Placement Date:: 09/19/15 Past Psychological History: Anxiety, Depression, PTSD Smoking Status: Never smoker Past Alcohol Use History: None Reported Past Drug Use History: None Reported - Past Family History Mother Family Medical History: Coronary Artery Disease (CAD), Myocardial Infarction (UT ) Additional Family Medical History / Comment(s): 7 UT and faulty heart valve. Pt does not know the age when mother had her UT's. Father History Unknown: Yes Additional Family Medical History / Comment(s): Does not know who father is. Brother(s) Family Medical History: Cancer, Congestive Heart Failure (CHF), Myocardial Infarction (UT) Additional Family Medical History / Comment(s): Parkinsons. Pt does not know at what age his brother had an UT. Patient's other brother has lung CA Patient has Family Medical History: No Reported History Additional Family Medical History / Comment(s): There is a strong family history for heart disease, hypertension, and diabetes. General Exam - General Exam Comments Initial Comments: Physical Exam GENERAL: On a clear well-appearing, obese, appears much older than stated age HENT: Normocephalic, Atraumatic. EYES: PERRL, EOMI PULMONARY: Unlabored respirations. No audible rales rhonchi or wheezing was noted. CARDIOVASCULAR: There is a regular rate and rhythm without any murmurs gallops or rubs. Well-healed surgical incision and left chest consistent with pacemaker placement ABDOMEN: Soft and nontender with normal bowel sounds. SKIN: Skin is clear with no lesions or rashes and otherwise unremarkable. Multiple tattoos : Deferred NEUROLOGIC: Patient is alert and oriented x3. Moving all extremities spontaneously MUSCULOSKELETAL: Normal extremities with adequate strength and full range of motion. No lower extremity swelling or edema. No calf tenderness. PSYCHIATRIC: Normal psychiatric evaluation. Limitations: no limitations Course Vital Signs 07/07/18 07/07/18 04:31 05:01 Temperature 97.7 F Pulse Rate 85 Pulse Rate [ 72 Health Insurance Agent ] Respiratory 20 Rate Blood Pressure 108/68 O2 Sat by Pulse 97 Oximetry Chest Pain MDM - MDM Patient was seen and evaluated history was obtained from the patient Labs and imaging were ordered to evaluate for acute coronary syndrome as well as possibility of HHS or DKA as the patient was noted to be profoundly hyperglycemic upon arrival Labs resulted with hyperglycemia, no other significant abnormalities potassium is 4.7 normal kidney function 0.1 units per kilo IV insulin were ordered and administered, IV fluids continued to infused The patient's extensive past medical history, multiple visits in the past month for chest pain without admission to the hospital I do feel he warrants admission for further cardiac evaluation as well as normalization of blood glucose. Patient agreeable to this plan. Admission orders were placed, home medications ordered. Trending troponin labs were ordered. Disposition Clinical Impression: Hyperglycemia, CAD (coronary artery disease), Chest pain of unknown etiology, AICD (automatic cardioverter/defibrillator) present Disposition: ADMITTED IP TO THIS HOSP Referrals: Junie New MD [Primary Care Provider] - 1-2 days
[2018-07-07] MEDS: SODIUM CHLORIDE 0.9% 500 ML 500 ML IV SCH ×4 (04:58→06:37)
[2018-07-07 05:07] LABS: Glucose,Whole Blood 551 mg/dL (75-99)
[2018-07-07 05:10] LABS: Anisocytosis Slight; Basophils % (A) 1 %; Eosinophils # (A) 0.2 k/uL (0-0.7); Eosinophils % (A) 4 %; HCT 36.8 % (39.0-53.0); HGB 12.6 gm/dL (13.0-17.5); Lymphocytes # (A) 1.4 k/uL (1.0-4.8); Lymphocytes % (A) 25 %; MCH 28.3 pg (25.0-35.0); MCHC 34.1 g/dL (31.0-37.0); Mean Platelet Volume 6.8; Monocytes # (A) 0.2 k/uL (0-1.0); Monocytes % (A) 4 %; Neutrophils # (A) 3.6 k/uL (1.3-7.7); Neutrophils % (A) 65 %; Platelet Count 213 k/uL (150-450); RBC 4.44 m/uL (4.30-5.90); RDW 16.2 % (11.5-15.5); WBC 5.6 k/uL (3.8-10.6)
[2018-07-07 05:17] LABS: ALT 37 U/L (21-72); AST 27 U/L (17-59); Alkaline Phosphatase 202 U/L (38-126); Anion Gap 9 mmol/L; Appearance,Urine Clear (Clear); Bilirubin,Urine Negative (Negative); Blood Urea Nitrogen 31 mg/dL (9-20); Blood,Urine Trace (Negative); Calcium 8.7 mg/dL (8.4-10.2); Carbon Dioxide 25 mmol/L (22-30); Chloride 91 mmol/L (98-107); Color,Urine Light Yellow; Glucose,Urine (UA) 4+ (Negative); Ketones,Urine Negative (Negative); Leukocyte Esterase,Urine Negative (Negative); Nitrite,Urine Negative (Negative); Potassium 4.7 mmol/L (3.5-5.1); Protein,Urine Negative (Negative); RBC,Urine 1 /hpf (0-5); Sodium 125 mmol/L (137-145); Specific Gravity,Urine 1.011 (1.001-1.035); Total Bilirubin 0.6 mg/dL (0.2-1.3); Total Protein 5.5 g/dL (6.3-8.2); Urobilinogen,Urine <2.0 mg/dL (<2.0)
[2018-07-07 05:23] LABS: Partial Thromboplastin Time 22.2 sec (22.0-30.0); Prothrombin Time 10.4 sec (9.0-12.0)
[2018-07-07 05:27] LABS: Glucose 545 mg/dL (74-99)
[2018-07-07] MEDS ORDERED: INSULIN REGULAR 100 UNIT/ML VIAL IV ONE (05:33)
--- NOTE | 2018-07-07 05:37 | XR ---
EXAM: XR Chest, 2 Views CLINICAL HISTORY: Fever TECHNIQUE: Frontal and lateral views of the chest. COMPARISON: 06/29/2018 FINDINGS: Lungs: The pulmonary vasculature demonstrates no radiographic evidence for florid CHF. Pleural space: No pleural effusion. No pneumothorax. Heart: Cardiac silhouette is within normal limits. Mediastinum: The mediastinal contours are within normal limits. The trachea is midline. Bones/joints: Unremarkable. Tubes, lines and devices: Left subclavian defibrillator pacer leads are stable in appearance from previous exam. IMPRESSION: No significant alteration from previous examination. No focal consolidation or definite acute cardiopulmonary process.
[2018-07-07 05:39] LABS: Creatine Kinase MB 3.1 ng/mL (0.0-2.4); Troponin I 0.034 ng/mL (0.000-0.034)
[2018-07-07] MEDS ORDERED: ONDANSETRON 4 MG/2 ML VIAL IVP STA (05:54)
[2018-07-07] MEDS ORDERED: NITROGLYCERIN SL TABS 0.4 MG TAB SUBLINGUAL PRN (05:56)
[2018-07-07] MEDS ORDERED: traMADol 50 MG TAB PO PRN (05:57)
[2018-07-07] MEDS ORDERED: ALBUTEROL NEBULIZED 2.5 MG/3 ML INHALATION PRN (05:57)
[2018-07-07 06:19] LABS: Glucose,Whole Blood 444 mg/dL (75-99)
[2018-07-07 07:15] LABS: Glucose,Whole Blood 406 mg/dL (75-99)
[2018-07-07 07:51] VITALS: BMI 41.6
[2018-07-07] MEDS: GABAPENTIN 400 MG CAP PO SCH ×3 (08:13→20:53)
[2018-07-07] MEDS: INSULIN ASPART (NovoLOG) 100 UNIT/ML VIAL SQ SCH ×4 (08:13→20:54)
--- NOTE | 2018-07-07 08:37 | P.CRDCN ---
History of Present Illness Consult date: 07/07/18 Requesting physician: Jose M Gallagher Consult reason: chest pain Chief complaint: Chest pain History of present illness: This is a 42-year-old gentleman very well known to our practice, S medical history significant for coronary artery disease and multiple PCI's, ischemic cardiomyopathy with prior AICD, hypertension, hyperlipidemia, diabetes , prior CVA, obstructive sleep apnea, follows with a mix house operator at [facility]. He presents to the hospital on this admission with symptoms that started early this morning, he states that he had a very sharp stabbing chest pain which developed into a pressure, went into his left arm and up into his left shoulder. At the time of my examination he is currently chest pain-free. According to the patient in October or November of last year he was at [facility], he states he had a balloon pump placed at that time, he also states that his defibrillator went off and number of times. Patient also states that he thinks he had a stent placed during that admission, we will obtain records from there. Overall over the past couple of months he states he's been doing well, intermittently he does get chest pains. Chest x-ray shows no significant alteration from previous exam. No acute cardiopulmonary process. His EKG shows a sensed V paced rhythm. Blood pressure 108/68 with a heart rate in the 80s, 97% on room air. White blood cell count 5.6, hemoglobin 12.6, platelet count 213. Sodium 125, potassium 4.7, BUN 31, creatinine 1.0, glucose on arrival 545. Alkaline phosphatase 202 on admission, initial troponin 0.034. Past Medical History Past Medical History: Asthma, Coronary Artery Disease (CAD), Chest Pain / Angina , Heart Failure, CVA/TIA, Diabetes Mellitus, Deep Vein Thrombosis (DVT), GERD/ Reflux, Hyperlipidemia, Hypertension, Myocardial Infarction (NM), Osteoarthritis (OA), Pneumonia, Skin Disorder, Sleep Apnea/CPAP/BIPAP Additional Past Medical History / Comment(s): multiple vessel CAD, ischemic cardiomyopathy, diabetic neuropathy bilateral hands and feet, hypertensive cardiovascular disease, SHELIA with no device, chronic gastritis, degenerative disc disease, chronic back pain, depression with hx of suicide attempts, gastroparesis, psoriasis, UTI, migraines, TIA, PUD, hiatal hernia, L rotator cuff tear, bronchitis, pseudoaneurysm L groin post procedure. 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 Date of Last Stent Placement:: 10/2017 Type of Cardiac Device: Biventricular Pacemaker, AICD Device Placement Date:: 09/19/15 Past Psychological History: Anxiety, Depression, PTSD Additional Psychological History / Comment(s): Several suicide attempts with use of insulin. PTSD - in 2000 his 3mo old son in his arms (born 2 months premature). Pt states he is currently suicidal and wishes he were . He has a walker at home if needed. He drives.pt has 2 adult stepchildren at home with him most of the time. Spouse manages his medications. He is on a 1500 cc fluid restriction. Smoking Status: Never smoker Past Alcohol Use History: None Reported Additional Past Alcohol Use History / Comment(s): Past alcohol abuse - pt states he quit drinking over 8yrs ago. Past Drug Use History: None Reported Additional Drug Use History / Comment(s): Pt has smoked marijuana in the past - last smoked in 1999. - Past Family History Mother Family Medical History: Coronary Artery Disease (CAD), Myocardial Infarction (NM ) Additional Family Medical History / Comment(s): 7 NM and faulty heart valve. Pt does not know the age when mother had her NM's. Father History Unknown: Yes Additional Family Medical History / Comment(s): Does not know who father is. Brother(s) Family Medical History: Cancer, Congestive Heart Failure (CHF), Myocardial Infarction (NM) Additional Family Medical History / Comment(s): Parkinsons. Pt does not know at what age his brother had an NM. Patient's other brother has lung CA Patient has Family Medical History: No Reported History Additional Family Medical History / Comment(s): There is a strong family history for heart disease, hypertension, and diabetes. Medications and Allergies Home Medications Medication Instructions Recorded Confirmed Type Clopidogrel [Plavix] 75 mg PO QAM 12/03/17 06/29/18 History Metoprolol Succinate [Toprol XL] 25 mg PO DAILY@0800 12/03/17 06/29/18 History Digoxin [Digitek] 125 mcg PO DAILY@0800 02/01/18 06/29/18 History Gabapentin [Neurontin] 400 mg PO TID@0600,1400,2100 02/01/18 06/29/18 History Spironolactone [Aldactone] 25 mg PO DAILY@0800 02/01/18 06/29/18 History Aspirin 81 mg PO DAILY chew 02/03/18 06/29/18 Rx Albuterol Inhaler [Ventolin Hfa 2 puff INHALATION RT-Q6H PRN 04/01/18 06/29/18 History Inhaler] Pantoprazole [Protonix] 40 mg PO DAILY 04/01/18 06/29/18 History Primidone [Mysoline] 100 mg PO BID 04/01/18 06/29/18 History Nitroglycerin Sl Tabs [Nitrostat] 0.4 mg SUBLINGUAL Q5M PRN tab 04/09/18 Rx DULoxetine HCL [Cymbalta] 60 mg PO BID capsule. 05/10/18 06/29/18 Rx Insulin Glargine [Lantus] 27 unit SQ HS 06/06/18 06/29/18 History Lisinopril [Zestril] 5 mg PO DAILY 06/06/18 06/29/18 History Paliperidone IM [Invega Sustenna] 234 mg IM Q28D 06/06/18 06/29/18 History Rosuvastatin Calcium [Crestor] 40 mg PO DAILY 06/06/18 06/29/18 History hydrOXYzine PAMOATE [Vistaril] 50 mg PO HS 06/06/18 06/29/18 History Doxycycline [Vibramycin] 100 mg PO BID 7 Days #14 capsule 06/29/18 Rx Insulin NPH Hum/Reg Insulin Hm 6 unit SQ AC-TID 06/29/18 06/29/18 History [NovoLIN 70-30 100 UNIT/ML VIAL] Loratadine [Claritin] 10 mg PO DAILY 06/29/18 06/29/18 History Promethazine HCl/Codeine 5 ml PO Q6H PRN 06/29/18 06/29/18 History [Promethazine-Codeine Syrup] Sulfamethoxazole/Trimethoprim 1 tab PO BID 06/29/18 06/29/18 History [Bactrim DS 800-160 mg] Torsemide [Demadex] 40 mg PO BID 06/29/18 06/29/18 History traMADol HCL [Ultram] 50 mg PO Q6HR PRN 06/29/18 06/29/18 History Allergies Allergy/AdvReac Type Severity Reaction Status Date / Time erythromycin base Allergy Severe Rash/Hives Verified 06/29/18 07:50 [Erythromycin Base] cephalexin monohydrate Allergy Unknown Rash/Hives Verified 06/29/18 07:50 [From Keflex] codeine Allergy Unknown Unknown Verified 06/29/18 07:50 meclizine Allergy Unknown Unknown Verified 06/29/18 07:50 Penicillins Allergy Unknown Rash/Hives Verified 06/29/18 07:50 shellfish derived Allergy Unknown Anaphylaxis Verified 06/29/18 07:50 Fish Containing Products Allergy Anaphylaxis Verified 06/29/18 07:50 [Fish] Iodinated Contrast- Oral and Allergy Anaphylaxis Verified 06/29/18 07:50 IV Dye naproxen AdvReac Unknown Compromises Verified 06/29/18 07:50 Kidney Function atorvastatin calcium AdvReac Myalgia Verified 06/29/18 07:50 [From Lipitor] hydrocodone [From [place]] AdvReac Rapid Verified 06/29/18 07:50 Heart Rate Physical Exam Vitals: Vital Signs Temp Pulse Pulse Resp BP BP Pulse Ox 07/07/18 07:44 97.9 F 89 16 95/62 98 07/07/18 06:54 97.5 F L 90 18 99/71 96 07/07/18 06:38 97.9 F 07/07/18 06:34 18 07/07/18 06:20 18 L 84 H 105/71 97 07/07/18 05:01 72 07/07/18 04:31 97.7 F 85 20 108/68 97 Intake and Output 07/06/18 07/07/18 07/07/18 22:59 06:59 14:59 Other: Weight 117.027 kg PHYSICAL EXAMINATION: GENERAL: 42-year-old gentleman in no acute distress at the time of my examination HEENT: Head is atraumatic, normocephalic. Pupils equal, round. Sclera anicteric. Conjunctiva are clear. Mucous membranes of the mouth are moist. Neck is supple. There is no elevated jugular venous pressure. No carotid bruit is heard. HEART EXAMINATION: Heart S1, S2 normal. No murmur or gallop heard. CHEST EXAMINATION: Lungs are clear to auscultation and precussion. No chest wall tenderness is noted on palpation or with deep breathing. ABDOMEN: Soft, nontender. Bowel sounds are heard. No organomegaly noted. EXTREMITIES: 2+ peripheral pulses with no evidence of peripheral edema and no calf tenderness noted. Patient does have multiple tattoos on his body. NEUROLOGIC patient is awake, alert and oriented 3 . . Results 07/07/18 04:37 07/07/18 04:37 Cardiac Enzymes 07/07/18 07/07/18 Range/Units 04:37 04:37 AST 27 (17-59) U/L CK-MB (CK-2) 3.1 H (0.0-2.4) ng/mL Troponin I 0.034 (0.000-0.034) ng/mL Coagulation 07/07/18 Range/Units 04:37 PT 10.4 (9.0-12.0) sec APTT 22.2 (22.0-30.0) sec CBC 07/07/18 Range/Units 04:37 WBC 5.6 (3.8-10.6) k/uL RBC 4.44 (4.30-5.90) m/uL Hgb 12.6 L (13.0-17.5) gm/dL Hct 36.8 L (39.0-53.0) % Plt Count 213 (150-450) k/uL Comprehensive Metabolic Panel 07/07/18 Range/Units 04:37 Sodium 125 L (137-145) mmol/L Potassium 4.7 (3.5-5.1) mmol/L Chloride 91 L (98-107) mmol/L Carbon Dioxide 25 (22-30) mmol/L BUN 31 H (9-20) mg/dL Creatinine 1.08 (0.66-1.25) mg/dL Glucose 545 H* (74-99) mg/dL Calcium 8.7 (8.4-10.2) mg/dL AST 27 (17-59) U/L ALT 37 (21-72) U/L Alkaline Phosphatase 202 H (38-126) U/L Total Protein 5.5 L (6.3-8.2) g/dL Albumin 3.0 L (3.5-5.0) g/dL Current Medications Generic Name Dose Route Start Last Admin Trade Name Freq PRN Reason Stop Dose Admin Albuterol Sulfate 2.5 mg 07/07/18 05:57 Ventolin Nebulized INHALATION RT-Q6H PRN Shortness Of Breath Aspirin 325 mg 07/08/18 09:00 Aspirin PO DAILY [facility] Clopidogrel Bisulfate 75 mg 07/07/18 09:00 Plavix PO QAM [facility] Digoxin 125 mcg 07/07/18 08:00 Lanoxin PO DAILY@0800 [facility] Duloxetine HCl 60 mg 07/07/18 09:00 Cymbalta PO BID [facility] Gabapentin 400 mg 07/07/18 06:00 07/07/18 08:13 Neurontin PO 400 mg TID@0600,1400,2100 [facility] Administration Insulin Aspart 0 unit 07/07/18 07:30 07/07/18 08:13 Novolog SQ 12 unit ACHS [facility] Administration Protocol Lisinopril 5 mg 07/07/18 09:00 Zestril PO DAILY [facility] Metoprolol Succinate 25 mg 07/07/18 08:00 Toprol Xl PO DAILY@0800 [facility] Nitroglycerin 0.4 mg 07/07/18 05:56 Nitrostat SUBLINGUAL Q5M PRN Chest Pain Primidone 100 mg 07/07/18 09:00 Mysoline PO BID [facility] Spironolactone 25 mg 07/07/18 08:00 Aldactone PO DAILY@0800 [facility] Torsemide 40 mg 07/07/18 09:00 Demadex PO BID@0900,1600 [facility] Tramadol HCl 50 mg 07/07/18 05:57 07/07/18 08:13 Ultram PO 50 mg Q6HR PRN Administration Pain Intake and Output 07/06/18 07/07/18 07/07/18 22:59 06:59 14:59 Other: Weight 117.027 kg 07/07/18 04:37 07/07/18 04:37 EKG Interpretations (text) EKG shows a sensed V paced rhythm Assessment and Plan Plan: Assessment and plan #1 chest pain, with some atypical features for acute coronary syndrome. Initial troponin 0.034. EKG shows a sensed V paced rhythm. #2 diabetes, uncontrolled #3 hypertension #4 hyperlipidemia #5 coronary artery disease with multiple angioplasties in the past, according to the patient in October or November of last year was his most recent. #6 ischemic cardiomyopathy with prior AICD, according to the patient his AICD fired multiple times in October or November of last year. #7 prior CVA #8 sleep apnea #9 asthma #10 depression with prior suicidal intent Plan We will attempt to get records from [facility] on patient's most recent visit there in October or November of last year. His most recent echo performed here was done in March 2018 which revealed an ejection fraction of 20-25%. We will obtain 2 subsequent troponins. We will repeat an echocardiogram with Doppler study. Decrease aspirin 81 mg daily. Continue Plavix, Lanoxin, lisinopril, metoprolol, Aldactone, and Demadex. Further recommendations to follow. DNP note has been reviewed, I agree with a documented findings and plan of care. Patient was seen and examined.
[2018-07-07] MEDS: SPIRONOLACTONE 25 MG TAB PO SCH (10:06)
[2018-07-07] MEDS: PRIMIDONE 50 MG TAB PO SCH ×2 (10:06→20:53)
[2018-07-07] MEDS: DULoxetine HCL 60 MG CAPSULE.DR PO SCH ×2 (10:06→20:53)
[2018-07-07] MEDS: DIGOXIN 125 MCG TAB PO SCH (10:06)
[2018-07-07] MEDS: CLOPIDOGREL 75 MG TAB PO SCH (10:06)
[2018-07-07] MEDS: METOPROLOL SUCCINATE (ER) 25 MG TAB.ER.24H PO SCH (10:06)
[2018-07-07 10:23] LABS: VBG PH 7.35 (7.31-7.41)
[2018-07-07 10:58] LABS: Troponin I 0.03 ng/mL (0.000-0.034)
[2018-07-07 11:54] LABS: Glucose,Whole Blood 297 mg/dL (75-99)
[2018-07-07] MEDS: TORSEMIDE 20 MG TAB PO SCH ×2 (13:15→17:05)
[2018-07-07] MEDS: LISINOPRIL 5 MG TAB PO SCH (13:15)
--- NOTE | 2018-07-07 14:24 | P.HPIM ---
History of Present Illness This is a pleasant 42 years old male with past medical history of coronary artery disease, heart failure, diabetes mellitus, DVT, GERD, hyperlipidemia, hypertension, asthma, sleep apnea on CPAP. Diabetic neuropathy, on chronic back pain, depression with history of suicidal attempt. Gastroparesis, psoriasis, migraine, TIA. This time presents with chest pain of one-day duration, centrally radiating to the left arm or neck. About 30/10 in severity sharp and heavy of the same time patient describes it as a stabbing that gets worse with coughing, and affected by food but increased by deep breathing denies coughing or dyspnea. He has chronic right leg pain but now is relieved after he took the Ultram. Patient denies dyspnea. He has recent history of common colds and sneezing about one week ago. No change in urine or bowel habits. No nausea vomiting. No dizziness. No hemoptysis. Vitas looks stable, patient is not tachycardic or hypoxic. His saturation 94% on room air. On admission his WBC is 5.6, hemoglobin 12.6. Sugarless uncontrolled 300-400. It was 545 upon admission Review of Systems CONSTITUTIONAL: No fever, no malaise, no fatigue. HEENT: No recent visual problems or hearing problems. Denied any sore throat. CARDIOVASCULAR: No orthopnea, PND, no palpitations, no syncope. PULMONARY: No shortness of breath, no cough, no hemoptysis. GASTROINTESTINAL: No diarrhea, no nausea, no vomiting, no abdominal pain. Normoactive bowel sounds. NEUROLOGICAL: No headaches, no weakness, no numbness. HEMATOLOGICAL: Denies any bleeding or petechiae. GENITOURINARY: Denies any burning micturition, frequency, or urgency. MUSCULOSKELETAL/RHEUMATOLOGICAL: Denies any joint pain, swelling, or any muscle pain. ENDOCRINE: Denies any polyuria or polydipsia. Past Medical History Past Medical History: Asthma, Coronary Artery Disease (CAD), Chest Pain / Angina , Heart Failure, CVA/TIA, Diabetes Mellitus, Deep Vein Thrombosis (DVT), GERD/ Reflux, Hyperlipidemia, Hypertension, Myocardial Infarction (IL), Osteoarthritis (OA), Pneumonia, Skin Disorder, Sleep Apnea/CPAP/BIPAP Additional Past Medical History / Comment(s): multiple vessel CAD, ischemic cardiomyopathy, diabetic neuropathy bilateral hands and feet, hypertensive cardiovascular disease, SHELIA with no device, chronic gastritis, degenerative disc disease, chronic back pain, depression with hx of suicide attempts, gastroparesis, psoriasis, UTI, migraines, TIA, PUD, hiatal hernia, L rotator cuff tear, bronchitis, pseudoaneurysm L groin post procedure. 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 Date of Last Stent Placement:: 10/2017 Type of Cardiac Device: Biventricular Pacemaker, AICD Device Placement Date:: 09/19/15 Past Psychological History: Anxiety, Depression, PTSD Additional Psychological History / Comment(s): Several suicide attempts with use of insulin. PTSD - in 2000 his 3mo old son in his arms (born 2 months premature). Pt states he is currently suicidal and wishes he were . He has a walker at home if needed. He drives.pt has 2 adult stepchildren at home with him most of the time. Spouse manages his medications. He is on a 1500 cc fluid restriction. Smoking Status: Never smoker Past Alcohol Use History: None Reported Additional Past Alcohol Use History / Comment(s): Past alcohol abuse - pt states he quit drinking over 8yrs ago. Past Drug Use History: None Reported Additional Drug Use History / Comment(s): Pt has smoked marijuana in the past - last smoked in 1999. - Past Family History Mother Family Medical History: Coronary Artery Disease (CAD), Myocardial Infarction (IL ) Additional Family Medical History / Comment(s): 7 IL and faulty heart valve. Pt does not know the age when mother had her IL's. Father History Unknown: Yes Additional Family Medical History / Comment(s): Does not know who father is. Brother(s) Family Medical History: Cancer, Congestive Heart Failure (CHF), Myocardial Infarction (IL) Additional Family Medical History / Comment(s): Parkinsons. Pt does not know at what age his brother had an IL. Patient's other brother has lung CA Patient has Family Medical History: No Reported History Additional Family Medical History / Comment(s): There is a strong family history for heart disease, hypertension, and diabetes. Medications and Allergies Home Medications Medication Instructions Recorded Confirmed Type Clopidogrel [Plavix] 75 mg PO QAM 12/03/17 06/29/18 History Metoprolol Succinate [Toprol XL] 25 mg PO DAILY@0800 12/03/17 06/29/18 History Digoxin [Digitek] 125 mcg PO DAILY@0800 02/01/18 06/29/18 History Gabapentin [Neurontin] 400 mg PO TID@0600,1400,2100 02/01/18 06/29/18 History Spironolactone [Aldactone] 25 mg PO DAILY@0800 02/01/18 06/29/18 History Aspirin 81 mg PO DAILY chew 02/03/18 06/29/18 Rx Albuterol Inhaler [Ventolin Hfa 2 puff INHALATION RT-Q6H PRN 04/01/18 06/29/18 History Inhaler] Pantoprazole [Protonix] 40 mg PO DAILY 04/01/18 06/29/18 History Primidone [Mysoline] 100 mg PO BID 04/01/18 06/29/18 History Nitroglycerin Sl Tabs [Nitrostat] 0.4 mg SUBLINGUAL Q5M PRN tab 04/09/18 Rx DULoxetine HCL [Cymbalta] 60 mg PO BID capsule. 05/10/18 06/29/18 Rx Insulin Glargine [Lantus] 27 unit SQ HS 06/06/18 06/29/18 History Lisinopril [Zestril] 5 mg PO DAILY 06/06/18 06/29/18 History Paliperidone IM [Invega Sustenna] 234 mg IM Q28D 06/06/18 06/29/18 History Rosuvastatin Calcium [Crestor] 40 mg PO DAILY 06/06/18 06/29/18 History hydrOXYzine PAMOATE [Vistaril] 50 mg PO HS 06/06/18 06/29/18 History Doxycycline [Vibramycin] 100 mg PO BID 7 Days #14 capsule 06/29/18 Rx Insulin NPH Hum/Reg Insulin Hm 6 unit SQ AC-TID 06/29/18 06/29/18 History [NovoLIN 70-30 100 UNIT/ML VIAL] Loratadine [Claritin] 10 mg PO DAILY 06/29/18 06/29/18 History Promethazine HCl/Codeine 5 ml PO Q6H PRN 06/29/18 06/29/18 History [Promethazine-Codeine Syrup] Sulfamethoxazole/Trimethoprim 1 tab PO BID 06/29/18 06/29/18 History [Bactrim DS 800-160 mg] Torsemide [Demadex] 40 mg PO BID 06/29/18 06/29/18 History traMADol HCL [Ultram] 50 mg PO Q6HR PRN 06/29/18 06/29/18 History Allergies Allergy/AdvReac Type Severity Reaction Status Date / Time erythromycin base Allergy Severe Rash/Hives Verified 06/29/18 07:50 [Erythromycin Base] cephalexin monohydrate Allergy Unknown Rash/Hives Verified 06/29/18 07:50 [From Keflex] codeine Allergy Unknown Unknown Verified 06/29/18 07:50 meclizine Allergy Unknown Unknown Verified 06/29/18 07:50 Penicillins Allergy Unknown Rash/Hives Verified 06/29/18 07:50 shellfish derived Allergy Unknown Anaphylaxis Verified 06/29/18 07:50 Fish Containing Products Allergy Anaphylaxis Verified 06/29/18 07:50 [Fish] Iodinated Contrast- Oral and Allergy Anaphylaxis Verified 06/29/18 07:50 IV Dye naproxen AdvReac Unknown Compromises Verified 06/29/18 07:50 Kidney Function atorvastatin calcium AdvReac Myalgia Verified 06/29/18 07:50 [From Lipitor] hydrocodone [From [place]] AdvReac Rapid Verified 06/29/18 07:50 Heart Rate Physical Exam Vitals: Vital Signs Temp Pulse Pulse Resp BP BP Pulse Ox 07/07/18 12:28 98.1 F 88 18 90/63 94 L 07/07/18 07:44 97.9 F 89 16 95/62 98 07/07/18 06:54 97.5 F L 90 18 99/71 96 07/07/18 06:38 97.9 F 07/07/18 06:34 18 07/07/18 06:20 18 L 84 H 105/71 97 07/07/18 05:01 72 07/07/18 04:31 97.7 F 85 20 108/68 97 Intake and Output 07/06/18 07/07/18 07/07/18 22:59 06:59 14:59 Other: Voiding Method Toilet # Voids 1 Weight 117.027 kg 117.027 kg GENERAL: The patient is alert and oriented x3, not in any acute distress. Well developed, well nourished. HEENT: Pupils are round and equally reacting to light. EOMI. No scleral icterus. No conjunctival pallor. Normocephalic, atraumatic. No pharyngeal erythema. No thyromegaly. CARDIOVASCULAR: S1 and S2 present. No murmurs, rubs, or gallops. PULMONARY: Chest is clear to auscultation, no wheezing or crackles. ABDOMEN: Soft, nontender, nondistended, normoactive bowel sounds. No palpable organomegaly. MUSCULOSKELETAL: No joint swelling or deformity. EXTREMITIES: No cyanosis, clubbing, or pedal edema. NEUROLOGICAL: Gross neurological examination did not reveal any focal deficits. SKIN: No rashes. Results CBC & Chem 7: 07/07/18 04:37 07/07/18 04:37 Labs: Abnormal Lab Results - Last 24 Hours (Table) 07/07/18 07/07/18 07/07/18 Range/Units 04:36 04:37 04:37 Hgb (13.0-17.5) gm/dL Hct (39.0-53.0) % RDW (11.5-15.5) % Sodium 125 L (137-145) mmol/L Chloride 91 L (98-107) mmol/L BUN 31 H (9-20) mg/dL Glucose 545 H* (74-99) mg/dL POC Glucose (mg/dL) 551 H (75-99) mg/dL Alkaline Phosphatase 202 H (38-126) U/L CK-MB (CK-2) 3.1 H (0.0-2.4) ng/mL Total Protein 5.5 L (6.3-8.2) g/dL Albumin 3.0 L (3.5-5.0) g/dL Urine Glucose (UA) (Negative) Urine Blood (Negative) 07/07/18 07/07/18 07/07/18 Range/Units 04:37 04:37 06:18 Hgb 12.6 L (13.0-17.5) gm/dL Hct 36.8 L (39.0-53.0) % RDW 16.2 H (11.5-15.5) % Sodium (137-145) mmol/L Chloride (98-107) mmol/L BUN (9-20) mg/dL Glucose (74-99) mg/dL POC Glucose (mg/dL) 444 H (75-99) mg/dL Alkaline Phosphatase (38-126) U/L CK-MB (CK-2) (0.0-2.4) ng/mL Total Protein (6.3-8.2) g/dL Albumin (3.5-5.0) g/dL Urine Glucose (UA) 4+ H (Negative) Urine Blood Trace H (Negative) 07/07/18 07/07/18 07/07/18 Range/Units 07:03 10:00 11:39 Hgb (13.0-17.5) gm/dL Hct (39.0-53.0) % RDW (11.5-15.5) % Sodium (137-145) mmol/L Chloride (98-107) mmol/L BUN (9-20) mg/dL Glucose (74-99) mg/dL POC Glucose (mg/dL) 406 H 297 H (75-99) mg/dL Alkaline Phosphatase (38-126) U/L CK-MB (CK-2) 3.0 H (0.0-2.4) ng/mL Total Protein (6.3-8.2) g/dL Albumin (3.5-5.0) g/dL Urine Glucose (UA) (Negative) Urine Blood (Negative) Thrombosis Risk Factor Assmnt - Choose All That Apply Each Factor Represents 1 point: Age 41-60 years, Heart failure (<1month), Obesity (BMI >25) Each Risk Factor Represents 3 Points: History of DVT/PE Thrombosis Risk Factor Assessment Total Risk Factor Score: 6 Thrombosis Risk Factor Assessment Level: High Risk Assessment and Plan Assessment: Hyperglycemia with uncontrolled diabetes Chest pain, rule out cardiac causes History of congestive heart failure and ischemic cardiomyopathy. Status post AICD. History of diabetes mellitus, uncontrolled History of DVT History of GERD History of sleep apnea on CPAP Hypertension, essential Hyperlipidemia Diabetic neuropathy History of Gastroparesis History of chronic back pain and right leg pain History of suicidal attempts and depression. Patient currently denies depressive symptoms or suicidal ideation History of psoriasis History of migraines History of TIA History of peptic ulcer disease Plan: This is a pleasant 42 years old male who presents because of chest pain. Cardiology is evaluating the patient. Continue with pain management. We'll check Doppler of the lower extremity to rule out DVT for his right leg pain Labs and medication were reviewed.. Continue same treatment. Continue with symptomatic treatment. Resume home medication. Monitor lytes and vitals. DVT and GI prophylaxis. Further recommendations of the clinical course of the patient DVT prophylaxis: Subcutaneous heparin GI Prophylaxis: Pepcid PT/OT: Pending Prognosis is guarded
--- NOTE | 2018-07-07 15:17 | US ---
EXAMINATION TYPE: US venous doppler duplex LE BI DATE OF EXAM: 07/07/2018 3:00 PM COMPARISON: NONE CLINICAL HISTORY: Rule out DVT. pain in legs, chest pain SIDE PERFORMED: bilateral TECHNIQUE: The lower extremity deep venous system is examined utilizing real time linear array sonog mami with graded compression, doppler sonography and color-flow sonography. VESSELS IMAGED: External Iliac Vein (EIV) Common Femoral Vein Deep Femoral Vein Greater Saphenous Vein * Femoral Vein Popliteal Vein Small Saphenous Vein * Proximal Calf Veins (* superficial vessels) Right Leg: Appears negative for DVT Left Leg: Appears negative for DVT IMPRESSION: No evidence for DVT
[2018-07-07 17:07] LABS: Glucose,Whole Blood 335 mg/dL (75-99)
[2018-07-07 18:09] LABS: Creatine Kinase MB 2.9 ng/mL (0.0-2.4); Troponin I 0.025 ng/mL (0.000-0.034)
[2018-07-07] MEDS ORDERED: MORPHINE SULFATE 4 MG/ML SYRINGE IVP STA (18:30)
[2018-07-07 20:06] LABS: Glucose,Whole Blood 403 mg/dL (75-99)
[2018-07-07] MEDS ORDERED: INSULIN ASPART (NovoLOG) 100 UNIT/ML VIAL SQ ONE (21:30)
[2018-07-07] MEDS ORDERED: INSULIN DETEMIR (LEVEMIR) 100 UNIT/ML SYR SQ SCH (21:45)
[2018-07-07] MEDS ORDERED: INSULIN DETEMIR (LEVEMIR) 100 UNIT/ML SYR SQ ONE (22:25)
[2018-07-07 22:36] LABS: Cholesterol 136 mg/dL (<200); HDL Cholesterol 22 mg/dL (40-60)
[2018-07-07 22:44] LABS: Triglycerides 822 mg/dL (<150)
[2018-07-08 02:35] LABS: Glucose,Whole Blood 291 mg/dL (75-99)
[2018-07-08] MEDS: GABAPENTIN 400 MG CAP PO SCH (05:04)
[2018-07-08 05:47] LABS: Glucose,Whole Blood 172 mg/dL (75-99)
[2018-07-08 07:04] LABS: Anion Gap 10 mmol/L; Blood Urea Nitrogen 31 mg/dL (9-20); Calcium 9.1 mg/dL (8.4-10.2); Carbon Dioxide 25 mmol/L (22-30); Chloride 99 mmol/L (98-107); Glucose 194 mg/dL (74-99); Potassium 4.6 mmol/L (3.5-5.1); Sodium 134 mmol/L (137-145)
[2018-07-08] MEDS ORDERED: INSULIN ASPART (NovoLOG) 100 UNIT/ML VIAL SQ SCH (07:30)
--- NOTE | 2018-07-08 08:09 | ECHOF ---
Referral Reason:chest pain MEASUREMENTS -------- HEIGHT: 170.2 cm WEIGHT: 111.1 kg BP: RVIDd: 3.2 cm (< 3.3) IVSd: 1.3 cm (0.6 - 1.1) LVIDd: 4.7 cm (3.9 - 5.3) LVPWd: 1.2 cm (0.6 - 1.1) IVSs: 1.4 cm LVIDs: 4.4 cm LVPWs: 1.2 cm LA Diam: 4.2 cm (2.7 - 3.8) Ao Diam: 2.4 cm (2.0 - 3.7) LA Diam: 3.7 cm (2.7 - 3.8) MV EXCURSION: 13.883 mm (> 18.000) MV EF SLOPE: 101 mm/s (70 - 150) EPSS: 1.3 cm MV E Benjy: 0.91 m/s MV DecT: 111 ms MV A Benjy: 0.44 m/s MV E/A Ratio: 2.04 RAP: 5.00 mmHg RVSP: 48.45 mmHg FINDINGS -------- Paced rhythm. This was a techncally difficult study with suboptimal views, , Definity utilized for enhancement of i mages. The left ventricular size is normal. Left ventricular wall thickness is normal. There is severe g lobal hypokinesis of LV . Overall left ventricular systolic function is severely impaired with, an EF < 20%. The right ventricle is normal in size. The left atrial size is normal. The right atrial size is normal. xx ml of Lumason was utilized for enhancement of images. There is mild aortic valve sclerosis. Mild mitral annular calcification present. Mild mitral regurgitation is present. Mild tricuspid regurgitation present. There is moderate pulmonary hypertension. The right ventric ular systolic pressure, as measured by Doppler, is 48.45mmHg. The pulmonic valve was not well visualized. The aortic root size is normal. There is no pericardial effusion. CONCLUSIONS -------- 1. This was a techncally difficult study with suboptimal views, , Definity utilized for enhancement o f images. 2. The left ventricular size is normal. 3. Left ventricular wall thickness is normal. 4. There is severe global hypokinesis of LV . 5. Overall left ventricular systolic function is severely impaired with, an EF < 20%. 6. The right ventricle is normal in size. 7. The left atrial size is normal. 8. The right atrial size is normal. 9. xx ml of Lumason was utilized for enhancement of images. 10. There is mild aortic valve sclerosis. 11. Mild mitral annular calcification present. 12. Mild mitral regurgitation is present. 13. Mild tricuspid regurgitation present. 14. There is moderate pulmonary hypertension. 15. The right ventricular systolic pressure, as measured by Doppler, is 48.45mmHg. 16. The pulmonic valve was not well visualized. 17. The aortic root size is normal. 18. There is no pericardial effusion. OBSTETRICS GYN: Jossie Cooper RDCS
[2018-07-08 08:35] VITALS: RESP 16
[2018-07-08] MEDS: SPIRONOLACTONE 25 MG TAB PO SCH (08:54)
[2018-07-08] MEDS: TORSEMIDE 20 MG TAB PO SCH (08:54)
[2018-07-08] MEDS: PRIMIDONE 50 MG TAB PO SCH (08:54)
[2018-07-08] MEDS: DIGOXIN 125 MCG TAB PO SCH (08:54)
[2018-07-08] MEDS: LISINOPRIL 5 MG TAB PO SCH (08:54)
[2018-07-08] MEDS: METOPROLOL SUCCINATE (ER) 25 MG TAB.ER.24H PO SCH (08:54)
[2018-07-08] MEDS: DULoxetine HCL 60 MG CAPSULE.DR PO SCH (08:54)
[2018-07-08] MEDS: CLOPIDOGREL 75 MG TAB PO SCH (08:54)
[2018-07-08] MEDS: INSULIN ASPART (NovoLOG) 100 UNIT/ML VIAL SQ SCH ×4 (08:55→12:21)
[2018-07-08] MEDS ORDERED: ASPIRIN 325 MG TAB PO SCH ×2 (09:00→10:00)
[2018-07-08] MEDS ORDERED: NITROGLYCERIN SL TABS 0.4 MG TAB SUBLINGUAL PRN (09:50)
[2018-07-08] MEDS ORDERED: LORATADINE 10 MG TAB PO SCH (10:00)
[2018-07-08] MEDS ORDERED: PANTOPRAZOLE 40 MG TABLET PO SCH (10:00)
[2018-07-08] MEDS ORDERED: SODIUM CHLORIDE 0.9% 1,000 ML IV SCH (10:30)
[2018-07-08 12:03] VITALS: BP 96/66; PULSE 82; TEMP 97.5
[2018-07-08 12:14] LABS: Glucose,Whole Blood 322 mg/dL (75-99)
--- NOTE | 2018-07-08 13:15 | P.PN ---
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 He presents to the hospital on this admission with symptoms that started early this morning, he states that he had a very sharp stabbing chest pain which developed into a pressure, went into his left arm and up into his left shoulder. At the time of my examination he is currently chest pain-free. According to the patient in October or November of last year he was at [facility], he states he had a balloon pump placed at that time, he also states that his defibrillator went off and number of times. Patient also states that he thinks he had a stent placed during that admission, we will obtain records from there. Overall over the past couple of months he states he's been doing well, intermittently he does get chest pains. Chest x-ray shows no significant alteration from previous exam. No acute cardiopulmonary process. His EKG shows a sensed V paced rhythm. Blood pressure 108/68 with a heart rate in the 80s, 97% on room air. White blood cell count 5.6, hemoglobin 12.6, platelet count 213. Sodium 125, potassium 4.7, BUN 31, creatinine 1.0, glucose on arrival 545. Alkaline phosphatase 202 on admission, initial troponin 0.034. 07/08/2018 Patient was seen and examined this morning, he's been up ambulating in the hallway most of the morning. Still has a constant sharp pressure in his chest. That has been present since yesterday. Troponin 0.34, 0.030, 0.025. Objective - Vital Signs Vital signs: Vital Signs Temp 97.5 F L 07/08/18 12:00 Pulse 82 07/08/18 12:00 Resp 16 07/08/18 12:00 BP 96/66 07/08/18 12:00 Pulse Ox 99 07/08/18 12:00 Intake & Output 07/07/18 07/08/18 07/08/18 18:59 06:59 18:59 Intake Total 100 Output Total 4 Balance 100 -4 Weight 111.2 kg 105 kg Intake: Oral 100 Output: Stool 4 Other: Voiding Method Toilet Toilet Toilet # Voids 1 1 1 # Bowel Movements 1 - Exam PHYSICAL EXAMINATION: GENERAL: 42-year-old gentleman in no acute distress at the time of my examination HEENT: Head is atraumatic, normocephalic. Pupils equal, round. Sclera anicteric. Conjunctiva are clear. Mucous membranes of the mouth are moist. Neck is supple. There is no elevated jugular venous pressure. No carotid bruit is heard. HEART EXAMINATION: Heart S1, S2 normal. No murmur or gallop heard. CHEST EXAMINATION: Lungs are clear to auscultation and precussion. No chest wall tenderness is noted on palpation or with deep breathing. ABDOMEN: Soft, nontender. Bowel sounds are heard. No organomegaly noted. EXTREMITIES: 2+ peripheral pulses with no evidence of peripheral edema and no calf tenderness noted. Patient does have multiple tattoos on his body. NEUROLOGIC patient is awake, alert and oriented 3 . - Labs CBC & Chem 7: 07/07/18 04:37 07/08/18 06:17 Labs: Abnormal Lab Results - Last 24 Hours (Table) 07/07/18 07/07/18 07/07/18 Range/Units 04:37 16:41 16:45 Sodium (137-145) mmol/L BUN (9-20) mg/dL Glucose (74-99) mg/dL POC Glucose (mg/dL) 335 H (75-99) mg/dL CK-MB (CK-2) 2.9 H (0.0-2.4) ng/mL Triglycerides 822 H (<150) mg/dL HDL Cholesterol 22 L (40-60) mg/dL 07/07/18 07/08/18 07/08/18 Range/Units 20:05 02:32 05:46 Sodium (137-145) mmol/L BUN (9-20) mg/dL Glucose (74-99) mg/dL POC Glucose (mg/dL) 403 H 291 H 172 H (75-99) mg/dL CK-MB (CK-2) (0.0-2.4) ng/mL Triglycerides (<150) mg/dL HDL Cholesterol (40-60) mg/dL 07/08/18 07/08/18 Range/Units 06:17 12:08 Sodium 134 L (137-145) mmol/L BUN 31 H (9-20) mg/dL Glucose 194 H (74-99) mg/dL POC Glucose (mg/dL) 322 H (75-99) mg/dL CK-MB (CK-2) (0.0-2.4) ng/mL Triglycerides (<150) mg/dL HDL Cholesterol (40-60) mg/dL Assessment and Plan Plan: Assessment and plan #1 chest pain, with some atypical features for acute coronary syndrome. Initial troponin 0.034. EKG shows a sensed V paced rhythm. #2 diabetes, uncontrolled #3 hypertension #4 hyperlipidemia #5 coronary artery disease with multiple angioplasties in the past, according to the patient in October or November of last year was his most recent. #6 ischemic cardiomyopathy with prior AICD, according to the patient his AICD fired multiple times in October or November of last year. #7 prior CVA #8 sleep apnea #9 asthma #10 depression with prior suicidal intent Plan Cardiology's perspective, patient may be able to be discharged home once cleared by primary. We will follow him along with you now on an as-needed basis only, please don't hesitate to call with any questions. DNP note has been reviewed, I agree with a documented findings and plan of care. Patient was seen and examined.
[2018-07-08] MEDS ORDERED: INSULIN DETEMIR (LEVEMIR) 100 UNIT/ML SYR SQ SCH ×2 (21:00)
== END 2018-07-08 15:34 | disposition home or self-care (01) | DRG 303 ==
LOC: EC 04:29 → 3SCARD 05:56
PROVIDERS: ADMIT Internal Medicine; ATTEND Internal Medicine
DX: I25.10 Atherosclerotic heart disease of native coronary artery without angina pectoris (principal); I24.9 Acute ischemic heart disease, unspecified; R45.851 Suicidal ideations; I11.0 Hypertensive heart disease with heart failure; I50.9 Heart failure, unspecified; Z95.5 Presence of coronary angioplasty implant and graft; E11.43 Type 2 diabetes mellitus with diabetic autonomic (poly)neuropathy; E11.65 Type 2 diabetes mellitus with hyperglycemia; E78.5 Hyperlipidemia, unspecified; F32.9 Major depressive disorder, single episode, unspecified; F43.10 Post-traumatic stress disorder, unspecified; G43.909 Migraine, unspecified, not intractable, without status migrainosus; Z86.73 Personal history of transient ischemic attack (TIA), and cerebral infarction without residual deficits; G47.33 Obstructive sleep apnea (adult) (pediatric); G89.29 Other chronic pain; I25.2 Old myocardial infarction; I25.5 Ischemic cardiomyopathy; J45.909 Unspecified asthma, uncomplicated; K21.9 Gastro-esophageal reflux disease without esophagitis; K31.84 Gastroparesis; L40.9 Psoriasis, unspecified; Z79.02 Long term (current) use of antithrombotics/antiplatelets; Z79.4 Long term (current) use of insulin; Z79.82 Long term (current) use of aspirin; Z79.899 Other long term (current) drug therapy; Z82.0 Family history of epilepsy and other diseases of the nervous system; Z82.49 Family history of ischemic heart disease and other diseases of the circulatory system; Z83.3 Family history of diabetes mellitus; Z86.718 Personal history of other venous thrombosis and embolism; Z87.11 Personal history of peptic ulcer disease; Z95.810 Presence of automatic (implantable) cardiac defibrillator; Z91.5 Personal history of self-harm; F10.11 Alcohol abuse, in remission; Z88.1 Allergy status to other antibiotic agents; Z91.041 Radiographic dye allergy status; Z88.5 Allergy status to narcotic agent; Z88.0 Allergy status to penicillin; Z91.013 Allergy to seafood; M54.9 Dorsalgia, unspecified; M79.604 Pain in right leg; Z87.440 Personal history of urinary (tract) infections; Z86.14 Personal history of Methicillin resistant Staphylococcus aureus infection; Z87.01 Personal history of pneumonia (recurrent); Z90.79 Acquired absence of other genital organ(s); Z80.1 Family history of malignant neoplasm of trachea, bronchus and lung
CPT/HCPCS: 36415; 71046; 80048; 80053; 80061; 81001; 82009; 82550; 82553; 82803; 83605; 83930; 84484; 85025; 85379; 85610; 85730; 93005; 93306; 93970; 96374; 99285

== ENCOUNTER 2018-07-20 21:57 | Emergency (ER) | payer MEDICARE, OTHER ==
[2018-07-20] MEDS ORDERED: SODIUM CHLORIDE 0.9% 1,000 ML IV STA (22:08)
[2018-07-20 22:18] LABS: Glucose,Whole Blood 573 mg/dL (75-99)
--- NOTE | 2018-07-20 22:38 | CT ---
EXAM: CT Head Without Intravenous Contrast CLINICAL HISTORY: ITS.REASON CT Reason: Neuro Deficits - right hand weakness TECHNIQUE: Axial computed tomography images of the head/brain without intravenous contrast. CTDI is 49.1 mGy and DLP is 1082.4 mGy-cm. This CT exam was performed using one or more of the following dose reduction techniques: automated exposure control, adjustment of the mA and/or kV according to patient size, and/or use of iterative reconstruction technique. COMPARISON: CT 05/23/18. FINDINGS: Brain: No hemorrhage. No acute cortical infarct. No mass effect or midline shift. Patchy white matter low attenuation, nonspecific, possible age-indeterminate infarcts, demyelinating disorders, or other etiologies. Ventricles: Unremarkable. Bones/joints: No acute fracture. Soft tissues: Unremarkable. Sinuses: Right maxillary sinus disease. Mastoid air cells: Unremarkable as visualized. IMPRESSION: 1. No intracranial hemorrhage or acute cortical infarct. MRI is more sensitive for acute ischemia if clinically warranted. 2. Patchy white matter low attenuation, nonspecific, possible age- indeterminate infarcts, demyelinating disorders, or other etiologies.
[2018-07-20 22:44] LABS: Partial Thromboplastin Time 22.6 sec (22.0-30.0); Prothrombin Time 10.7 sec (9.0-12.0)
[2018-07-20] MEDS ORDERED: diphenhydrAMINE 50 MG/ML 1 ML VIAL IVP STA (22:49)
[2018-07-20] MEDS ORDERED: methylPREDNISolone SOD SUCCI 125 MG/2 ML VIAL IV STA (22:49)
[2018-07-20 22:54] LABS: ALT 36 U/L (21-72); AST 20 U/L (17-59); Albumin 3.5 g/dL (3.5-5.0); Alkaline Phosphatase 145 U/L (38-126); Anion Gap 12 mmol/L; Blood Urea Nitrogen 27 mg/dL (9-20); Calcium 8.8 mg/dL (8.4-10.2); Carbon Dioxide 24 mmol/L (22-30); Chloride 95 mmol/L (98-107); Glucose 441 mg/dL (74-99); Sodium 131 mmol/L (137-145); Total Bilirubin 0.7 mg/dL (0.2-1.3); Total Protein 5.8 g/dL (6.3-8.2)
[2018-07-20 23:02] LABS: Anisocytosis Slight; Basophils % (A) 1 %; Eosinophils # (A) 0.2 k/uL (0-0.7); Eosinophils % (A) 4 %; HCT 40.5 % (39.0-53.0); Hypochromasia Slight; Lymphocytes # (A) 1.2 k/uL (1.0-4.8); Lymphocytes % (A) 23 %; MCH 27.6 pg (25.0-35.0); MCV 86.2 fL (80.0-100.0); Mean Platelet Volume 6.8; Monocytes # (A) 0.3 k/uL (0-1.0); Monocytes % (A) 6 %; Neutrophils # (A) 3.3 k/uL (1.3-7.7); Neutrophils % (A) 64 %; Platelet Count 186 k/uL (150-450); RDW 16.3 % (11.5-15.5); WBC 5.2 k/uL (3.8-10.6)
[2018-07-20 23:30] LABS: Appearance,Urine Clear (Clear); Bilirubin,Urine Negative (Negative); Blood,Urine Trace (Negative); Color,Urine Light Yellow; Glucose,Urine (UA) 4+ (Negative); Ketones,Urine Negative (Negative); Leukocyte Esterase,Urine Negative (Negative); Mucus,Urine Rare /hpf; Nitrite,Urine Negative (Negative); Protein,Urine Trace (Negative); RBC,Urine 1 /hpf (0-5); Specific Gravity,Urine 1.008 (1.001-1.035); Urobilinogen,Urine <2.0 mg/dL (<2.0)
--- NOTE | 2018-07-21 00:25 | XR ---
EXAM: XR Chest, 2 Views CLINICAL HISTORY: ITS.REASON XR Reason: altered mental status TECHNIQUE: Frontal and lateral views of the chest. COMPARISON: 07/07/18 and 06/29/18. FINDINGS: Lungs: Prominent perihilar/infrahilar opacities, similar to prior. No consolidation. Pleural space: No significant pleural effusion or pneumothorax. Heart: Likely stable cardiomediastinal silhouette and left chest cardiac conduction device. Mediastinum: See above. Bones/joints: No acute fracture. IMPRESSION: No significant change.
[2018-07-21] MEDS ORDERED: INSULIN REGULAR 100 UNIT/ML VIAL IV ONE (00:34)
--- NOTE | 2018-07-21 00:44 | ED ---
General Adult HPI - General Chief complaint: Neuro Symptoms/Deficit Stated complaint: chest/ arm Pain Time Seen by Provider: 07/20/18 22:01 Source: patient, EMS Mode of arrival: EMS Limitations: no limitations - History of Present Illness Initial comments: Lauro is a 42-year-old gentleman with extensive past medical history including poorly controlled diabetes, coronary artery disease, cerebrovascular disease, history of a stroke in April for which he received TPA and was transferred to an outside facility. Patient reports in April he developed right arm weakness and speech difficulty, he saw Dr. Garg facility was given TPA and transferred to another facility he reports he has residual speech deficits from that previous stroke. Patient reports that at 910 today he was sitting on his couch watching television when he felt his right arm become weak and tingly. At that time he became concerned he may be having another stroke so he came to ER for further evaluation. The patient states that before dinner he had a glucose in the 230s to 50s, he gave himself his usual doses of long-acting and short-acting insulin. He then ate 2 cheese sandwiches, he reports that EMS arrived and found that his glucose was in the high 300s prior to coming to the emergency department. - Related Data Home Medications Medication Instructions Recorded Confirmed Clopidogrel [Plavix] 75 mg PO QAM 12/03/17 07/20/18 Metoprolol Succinate [Toprol XL] 25 mg PO DAILY@0800 12/03/17 07/20/18 Digoxin [Digitek] 125 mcg PO DAILY@0800 02/01/18 07/20/18 Gabapentin [Neurontin] 400 mg PO TID@0600,1400,2100 02/01/18 07/20/18 Spironolactone [Aldactone] 25 mg PO DAILY@0800 02/01/18 07/20/18 Albuterol Inhaler [Ventolin Hfa 2 puff INHALATION RT-Q6H PRN 04/01/18 07/20/18 Inhaler] Pantoprazole [Protonix] 40 mg PO DAILY 04/01/18 07/20/18 Primidone [Mysoline] 100 mg PO BID 04/01/18 07/20/18 Insulin Glargine [Lantus] 50 unit SQ HS 06/06/18 07/20/18 Lisinopril [Zestril] 5 mg PO DAILY 06/06/18 07/20/18 Paliperidone IM [Invega Sustenna] 234 mg IM Q28D 06/06/18 07/20/18 Rosuvastatin Calcium [Crestor] 40 mg PO DAILY 06/06/18 07/20/18 hydrOXYzine PAMOATE [Vistaril] 50 mg PO HS 06/06/18 07/20/18 Loratadine [Claritin] 10 mg PO DAILY 06/29/18 07/20/18 Torsemide [Demadex] 40 mg PO BID 06/29/18 07/20/18 traMADol HCL [Ultram] 50 mg PO Q6HR PRN 06/29/18 07/20/18 Aspirin EC [Ecotrin Low Dose] 81 mg PO DAILY 07/20/18 07/20/18 INSULIN ASPART (NovoLOG) [NovoLOG 25 unit SQ TID-W/MEALS 07/20/18 07/20/18 (formulary)] INSULIN ASPART (NovoLOG) [NovoLOG See Protocol SQ ACHS 07/20/18 07/20/18 (formulary)] metFORMIN HCL 850 mg PO BID 07/20/18 07/20/18 Previous Rx's Medication Instructions Recorded Nitroglycerin Sl Tabs [Nitrostat] 0.4 mg SUBLINGUAL Q5M PRN tab 04/09/18 DULoxetine HCL [Cymbalta] 60 mg PO BID capsule. 05/10/18 Allergies Allergy/AdvReac Type Severity Reaction Status Date / Time erythromycin base Allergy Severe Rash/Hives Verified 07/20/18 22:34 [Erythromycin Base] cephalexin monohydrate Allergy Unknown Rash/Hives Verified 07/20/18 22:34 [From Keflex] codeine Allergy Unknown Unknown Verified 07/20/18 22:34 meclizine Allergy Unknown Unknown Verified 07/20/18 22:34 Penicillins Allergy Unknown Rash/Hives Verified 07/20/18 22:34 shellfish derived Allergy Unknown Anaphylaxis Verified 07/20/18 22:34 Fish Containing Products Allergy Anaphylaxis Verified 07/20/18 22:34 [Fish] Iodinated Contrast- Oral and Allergy Anaphylaxis Verified 07/20/18 22:34 IV Dye naproxen AdvReac Unknown Compromises Verified 07/20/18 22:34 Kidney Function atorvastatin calcium AdvReac Myalgia Verified 07/20/18 22:34 [From Lipitor] hydrocodone [From [place]] AdvReac Rapid Verified 07/20/18 22:34 Heart Rate Review of Systems ROS Statement: Those systems with pertinent positive or pertinent negative responses have been documented in the HPI. ROS Other: All systems not noted in ROS Statement are negative. Past Medical History Past Medical History: Asthma, Coronary Artery Disease (CAD), Chest Pain / Angina , Heart Failure, CVA/TIA, Diabetes Mellitus, Deep Vein Thrombosis (DVT), GERD/ Reflux, Hyperlipidemia, Hypertension, Myocardial Infarction (IA), Osteoarthritis (OA), Pneumonia, Skin Disorder, Sleep Apnea/CPAP/BIPAP Additional Past Medical History / Comment(s): multiple vessel CAD, ischemic cardiomyopathy, diabetic neuropathy bilateral hands and feet, hypertensive cardiovascular disease, SHELIA with no device, chronic gastritis, degenerative disc disease, chronic back pain, depression with hx of suicide attempts, gastroparesis, psoriasis, UTI, migraines, TIA, PUD, hiatal hernia, L rotator cuff tear, bronchitis, pseudoaneurysm L groin post procedure. 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 Date of Last Stent Placement:: 10/2017 Type of Cardiac Device: Biventricular Pacemaker, AICD Device Placement Date:: 09/19/15 Past Psychological History: Anxiety, Depression, PTSD Smoking Status: Never smoker Past Alcohol Use History: None Reported Past Drug Use History: None Reported - Past Family History Mother Family Medical History: Coronary Artery Disease (CAD), Myocardial Infarction (IA ) Additional Family Medical History / Comment(s): 7 IA and faulty heart valve. Pt does not know the age when mother had her IA's. Father History Unknown: Yes Additional Family Medical History / Comment(s): Does not know who father is. Brother(s) Family Medical History: Cancer, Congestive Heart Failure (CHF), Myocardial Infarction (IA) Additional Family Medical History / Comment(s): Parkinsons. Pt does not know at what age his brother had an IA. Patient's other brother has lung CA Patient has Family Medical History: No Reported History Additional Family Medical History / Comment(s): There is a strong family history for heart disease, hypertension, and diabetes. General Exam - General Exam Comments Initial Comments: GENERAL: Chronically ill-appearing woman, appears much older than stated age HENT: Normocephalic, Atraumatic. Neck is soft and supple. No significant lymphadenopathy is noted. Oropharynx is clear. Moist mucous membranes. Neck has full range of motion without eliciting any pain. EYES: The sclera were anicteric and conjunctiva were pink and moist. Extraocular movements were intact and pupils were equal round and reactive to light. Eyelids were unremarkable. PULMONARY: Unlabored respirations CARDIOVASCULAR: There is a regular rate and rhythm without any murmurs gallops or rubs. ABDOMEN: Obese, Soft and nontender with normal bowel sounds. SKIN: Skin is clear with no lesions or rashes and otherwise unremarkable. Multiple tattoos NEUROLOGIC: Patient is alert and oriented x3. Cranial nerves II through XII are grossly intact. Mild tank tester strength weakness in the right hand, patient reports decreased sensation in the right forearm MUSCULOSKELETAL: Normal extremities with adequate strength and full range of motion. No lower extremity swelling or edema. No calf tenderness. LYMPHATICS: No significant lymphadenopathy is noted PSYCHIATRIC: Normal psychiatric evaluation. Limitations: no limitations Limitations: no limitations Course Vital Signs 07/20/18 07/20/18 07/20/18 21:59 22:04 22:15 Temperature Pulse Rate 96 94 93 Respiratory 20 20 27 H Rate Blood Pressure 114/72 114/72 O2 Sat by Pulse 100 98 Oximetry 07/20/18 07/21/18 22:30 01:53 Temperature 98.1 F Pulse Rate 94 78 Respiratory 24 18 Rate Blood Pressure 114/67 127/78 O2 Sat by Pulse 98 100 Oximetry EKG Findings - EKG Comments: EKG Findings:: EKG obtained at 2203, rate is 93, rhythm is ventricular paced. IN is 152, QRS 120, QTC is 474 there are no acute ST elevations or depressions there is no evidence of acute ischemia or infarction when compared to EKG obtained on July 07 there are no significant changes in morphology. Medical Decision Making - Medical Decision Making The patient was seen and evaluated history was obtained from patient and review of medical record Patient noted to be hyperglycemic with glucose greater than 500, IV fluids were ordered Code stroke was activated Patient reported an ALLERGY to IV contrast a CT was ordered without a CTA Patient was premedicated for CTA with Benadryl and Solu-Medrol next line patient care was discussed with neurology educational director Dr. Parson who recommends CTA and transfer to facility with neurology for further management Labs with improving hyperglycemia, IV insulin was ordered Patient was visualized to be able to tank tester the side rail of the bed and readjust himself and sit up straight. However when I return to the room for reevaluation he still was unwilling to attempt to squeeze my hand. He still had only minimal drift on exam. Patient had intermittent slurred speech it was from his previous stroke. At this time he do not feel the patient is a candidate for TPA. CTA with no acute findings no high-grade stenosis. Patient care was discussed with Dr. Carrasco at [facility] who accepts the transfer for possible stroke and need for neurology evaluation. - Lab Data Result diagrams: 07/20/18 22:14 07/20/18 22:14 Lab Results 07/20/18 07/20/18 07/20/18 Range/Units 22:06 22:14 22:14 WBC 5.2 (3.8-10.6) k/uL RBC 4.70 (4.30-5.90) m/uL Hgb 13.0 (13.0-17.5) gm/dL Hct 40.5 (39.0-53.0) % MCV 86.2 (80.0-100.0) fL MCH 27.6 (25.0-35.0) pg MCHC 32.0 (31.0-37.0) g/dL RDW 16.3 H (11.5-15.5) % Plt Count 186 (150-450) k/uL Neutrophils % 64 % Lymphocytes % 23 % Monocytes % 6 % Eosinophils % 4 % Basophils % 1 % Neutrophils # 3.3 (1.3-7.7) k/uL Lymphocytes # 1.2 (1.0-4.8) k/uL Monocytes # 0.3 (0-1.0) k/uL Eosinophils # 0.2 (0-0.7) k/uL Basophils # 0.0 (0-0.2) k/uL Hypochromasia Slight Anisocytosis Slight PT (9.0-12.0) sec INR (<1.2) APTT (22.0-30.0) sec Sodium 131 L (137-145) mmol/L Potassium 4.0 (3.5-5.1) mmol/L Chloride 95 L (98-107) mmol/L Carbon Dioxide 24 (22-30) mmol/L Anion Gap 12 mmol/L BUN 27 H (9-20) mg/dL Creatinine 0.95 (0.66-1.25) mg/dL Est GFR (CKD-EPI)AfAm >90 (>60 ml/min/1.73 sqM) Est GFR (CKD-EPI)NonAf >90 (>60 ml/min/1.73 sqM) Glucose 441 H (74-99) mg/dL POC Glucose (mg/dL) 573 H (75-99) mg/dL POC Glu [employer]fter Bharat Minaya Calcium 8.8 (8.4-10.2) mg/dL Total Bilirubin 0.7 (0.2-1.3) mg/dL AST 20 (17-59) U/L ALT 36 (21-72) U/L Alkaline Phosphatase 145 H (38-126) U/L Troponin I (0.000-0.034) ng/mL Total Protein 5.8 L (6.3-8.2) g/dL Albumin 3.5 (3.5-5.0) g/dL Urine Color Urine Appearance (Clear) Urine pH (5.0-8.0) Ur Specific [place] (1.001-1.035) Urine Protein (Negative) Urine Glucose (UA) (Negative) Urine Ketones (Negative) Urine Blood (Negative) Urine Nitrite (Negative) Urine Bilirubin (Negative) Urine Urobilinogen (<2.0) mg/dL Ur Leukocyte Esterase (Negative) Urine RBC (0-5) /hpf Urine Mucus (None) /hpf 07/20/18 07/20/18 07/20/18 Range/Units 22:14 22:14 23:20 WBC (3.8-10.6) k/uL RBC (4.30-5.90) m/uL Hgb (13.0-17.5) gm/dL Hct (39.0-53.0) % MCV (80.0-100.0) fL MCH (25.0-35.0) pg MCHC (31.0-37.0) g/dL RDW (11.5-15.5) % Plt Count (150-450) k/uL Neutrophils % % Lymphocytes % % Monocytes % % Eosinophils % % Basophils % % Neutrophils # (1.3-7.7) k/uL Lymphocytes # (1.0-4.8) k/uL Monocytes # (0-1.0) k/uL Eosinophils # (0-0.7) k/uL Basophils # (0-0.2) k/uL Hypochromasia Anisocytosis PT 10.7 (9.0-12.0) sec INR 1.0 (<1.2) APTT 22.6 (22.0-30.0) sec Sodium (137-145) mmol/L Potassium (3.5-5.1) mmol/L Chloride (98-107) mmol/L Carbon Dioxide (22-30) mmol/L Anion Gap mmol/L BUN (9-20) mg/dL Creatinine (0.66-1.25) mg/dL Est GFR (CKD-EPI)AfAm (>60 ml/min/1.73 sqM) Est GFR (CKD-EPI)NonAf (>60 ml/min/1.73 sqM) Glucose (74-99) mg/dL POC Glucose (mg/dL) (75-99) mg/dL POC Glu [employer] ID Calcium (8.4-10.2) mg/dL Total Bilirubin (0.2-1.3) mg/dL AST (17-59) U/L ALT (21-72) U/L Alkaline Phosphatase (38-126) U/L Troponin I 0.053 H* (0.000-0.034) ng/mL Total Protein (6.3-8.2) g/dL Albumin (3.5-5.0) g/dL Urine Color Light Yellow Urine Appearance Clear (Clear) Urine pH 5.0 (5.0-8.0) Ur Specific [place] 1.008 (1.001-1.035) Urine Protein Trace H (Negative) Urine Glucose (UA) 4+ H (Negative) Urine Ketones Negative (Negative) Urine Blood Trace H (Negative) Urine Nitrite Negative (Negative) Urine Bilirubin Negative (Negative) Urine Urobilinogen <2.0 (<2.0) mg/dL Ur Leukocyte Esterase Negative (Negative) Urine RBC 1 (0-5) /hpf Urine Mucus Rare H (None) /hpf 07/21/18 Range/Units 00:43 WBC (3.8-10.6) k/uL RBC (4.30-5.90) m/uL Hgb (13.0-17.5) gm/dL Hct (39.0-53.0) % MCV (80.0-100.0) fL MCH (25.0-35.0) pg MCHC (31.0-37.0) g/dL RDW (11.5-15.5) % Plt Count (150-450) k/uL Neutrophils % % Lymphocytes % % Monocytes % % Eosinophils % % Basophils % % Neutrophils # (1.3-7.7) k/uL Lymphocytes # (1.0-4.8) k/uL Monocytes # (0-1.0) k/uL Eosinophils # (0-0.7) k/uL Basophils # (0-0.2) k/uL Hypochromasia Anisocytosis PT (9.0-12.0) sec INR (<1.2) APTT (22.0-30.0) sec Sodium (137-145) mmol/L Potassium (3.5-5.1) mmol/L Chloride (98-107) mmol/L Carbon Dioxide (22-30) mmol/L Anion Gap mmol/L BUN (9-20) mg/dL Creatinine (0.66-1.25) mg/dL Est GFR (CKD-EPI)AfAm (>60 ml/min/1.73 sqM) Est GFR (CKD-EPI)NonAf (>60 ml/min/1.73 sqM) Glucose (74-99) mg/dL POC Glucose (mg/dL) 430 H (75-99) mg/dL POC Glu [employer] Drafter ID Gorecki, Courtney Calcium (8.4-10.2) mg/dL Total Bilirubin (0.2-1.3) mg/dL AST (17-59) U/L ALT (21-72) U/L Alkaline Phosphatase (38-126) U/L Troponin I (0.000-0.034) ng/mL Total Protein (6.3-8.2) g/dL Albumin (3.5-5.0) g/dL Urine Color Urine Appearance (Clear) Urine pH (5.0-8.0) Ur Specific [place] (1.001-1.035) Urine Protein (Negative) Urine Glucose (UA) (Negative) Urine Ketones (Negative) Urine Blood (Negative) Urine Nitrite (Negative) Urine Bilirubin (Negative) Urine Urobilinogen (<2.0) mg/dL Ur Leukocyte Esterase (Negative) Urine RBC (0-5) /hpf Urine Mucus (None) /hpf Disposition Clinical Impression: Arm weakness, Hyperglycemia due to type 2 diabetes mellitus, Hyperglycemia, CAD (coronary artery disease), At risk for readmission to hospital, History of recent stroke, HTN (hypertension), Chronic pain Disposition: OTHER INSTITUTION NOT DEFINED Referrals: Junie New MD [Primary Care Provider] - 1-2 days - Out of Hospital Transfer - Req. Specs Out of Hospital Transfer - Requested Specifics: Other Emergency Center ([facility])
[2018-07-21 00:45] LABS: Glucose,Whole Blood 430 mg/dL (75-99)
--- NOTE | 2018-07-21 01:24 | CT ---
EXAM: CT Angiography Head With Intravenous Contrast CLINICAL HISTORY: ITS.REASON CT Reason: Pain TECHNIQUE: Axial computed tomographic angiography images of the head with intravenous contrast using CT angiography protocol. CTDI is 56.1 mGy and DLP is 2165.9 mGy-cm. This CT exam was performed using one or more of the following dose reduction techniques: automated exposure control, adjustment of the mA and/or kV according to patient size, and/or use of iterative reconstruction technique. 3D and MIP reconstructed images were created and reviewed. COMPARISON: No relevant prior studies available. FINDINGS: Right internal carotid artery: No significant stenosis. No dissection or occlusion. Right anterior cerebral artery: No occlusion. No aneurysm. Right middle cerebral artery: No occlusion. No aneurysm. Right posterior cerebral artery: No occlusion. No aneurysm. Right vertebral artery: No dissection or occlusion. Left internal carotid artery: Irregular stenosis of the C2 and C3 segments of the left ICA. Left anterior cerebral artery: No occlusion. No aneurysm. Left middle cerebral artery: No occlusion. No aneurysm. Left posterior cerebral artery: No occlusion. No aneurysm. Left vertebral artery: No dissection or occlusion. Basilar artery: No occlusion. Brain: Question subtle edematous appearing left frontal lobe with slightly diminished vascularity. IMPRESSION: 1. No large vessel occlusion. 2. Question subtle edematous appearing left frontal lobe with slightly diminished vascularity. Consider MRI to evaluate for acute ischemia if indicated. EXAM: CT Angiography Neck With Intravenous Contrast CLINICAL HISTORY: ITS.REASON CT Reason: Pain TECHNIQUE: Axial computed tomographic angiography images of the neck with intravenous contrast using CT angiography protocol. CTDI is 56.1 mGy and DLP is 2165.9 mGy-cm. This CT exam was performed using one or more of the following dose reduction techniques: automated exposure control, adjustment of the mA and/or kV according to patient size, and/or use of iterative reconstruction technique. 3D and MIP reconstructed images were created and reviewed. COMPARISON: No relevant prior studies available. FINDINGS: VASCULATURE: Right common carotid artery: No significant stenosis. No dissection or occlusion. Right internal carotid artery: No significant stenosis. No dissection or occlusion. Right external carotid artery: No occlusion. Right vertebral artery: No dissection or occlusion. Left common carotid artery: No significant stenosis. No dissection or occlusion. Left internal carotid artery: No significant stenosis. No dissection or occlusion. Left external carotid artery: No occlusion. Left vertebral artery: No dissection or occlusion. NECK: Bones/joints: No acute fracture. Soft tissues: Unremarkable as visualized. Lymph nodes: Small mediastinal lymph nodes. Thyroid: Heterogeneous thyroid. Lung apices: Mild atelectasis or pneumonitis. CAROTID STENOSIS REFERENCE USING NASCET CRITERIA: % ICA stenosis = (1 - narrowest ICA diameter/diameter of distal cervical ICA) x 100. Mild - <50% stenosis. Moderate - 50-69% stenosis. Severe - 70-94% stenosis. Near occlusion - 95-99% stenosis. Occluded - 100% stenosis. IMPRESSION: No high-grade stenosis or occlusion. <MYCVCSECTION> Critical Value Communications 07/21/18 01:34 Verify Receipt Verified receipt with Dr. Portillo on 07/21 01:34 (-05:00)
[2018-07-21 01:57] VITALS: BP 127/78; PULSE 78; RESP 18; TEMP 98.1
== END 2018-07-21 01:00 | disposition other institution (70) ==
LOC: EC 21:57
DX: I25.10 Atherosclerotic heart disease of native coronary artery without angina pectoris (principal); E11.65 Type 2 diabetes mellitus with hyperglycemia; I11.0 Hypertensive heart disease with heart failure; I50.9 Heart failure, unspecified; G89.29 Other chronic pain; J45.909 Unspecified asthma, uncomplicated; I25.5 Ischemic cardiomyopathy; E11.40 Type 2 diabetes mellitus with diabetic neuropathy, unspecified; K21.9 Gastro-esophageal reflux disease without esophagitis; E78.5 Hyperlipidemia, unspecified; I25.2 Old myocardial infarction; G47.33 Obstructive sleep apnea (adult) (pediatric); Z86.718 Personal history of other venous thrombosis and embolism; Z86.73 Personal history of transient ischemic attack (TIA), and cerebral infarction without residual deficits; Z86.14 Personal history of Methicillin resistant Staphylococcus aureus infection; Z95.810 Presence of automatic (implantable) cardiac defibrillator; Z98.61 Coronary angioplasty status; Z83.3 Family history of diabetes mellitus; Z82.49 Family history of ischemic heart disease and other diseases of the circulatory system; Z79.02 Long term (current) use of antithrombotics/antiplatelets; Z79.4 Long term (current) use of insulin; Z79.82 Long term (current) use of aspirin; Z79.899 Other long term (current) drug therapy; Z88.1 Allergy status to other antibiotic agents; Z88.5 Allergy status to narcotic agent; Z88.8 Allergy status to other drugs, medicaments and biological substances; Z88.0 Allergy status to penicillin; Z91.013 Allergy to seafood; Z91.041 Radiographic dye allergy status; Z88.6 Allergy status to analgesic agent
CPT/HCPCS: 36415; 93005; 80053; 84484; 85025; 85610; 85730; 81001; 71046; 70496; 70450; 70498; 99285; 96374; 96375; 96361 ×2; J1200; J2930; Q9967

== ENCOUNTER 2018-08-08 17:21 | Inpatient (IN) | payer MEDICARE, OTHER ==
[2018-08-08 17:30] LABS: Glucose,Whole Blood >600 mg/dL (75-99)
[2018-08-08] MEDS ORDERED: SODIUM CHLORIDE 0.9% 1,000 ML IV STA ×2 (17:36)
[2018-08-08] MEDS ORDERED: SODIUM CHLORIDE 0.9% 500 ML 500 ML IV STA (17:36)
--- NOTE | 2018-08-08 18:10 | ED ---
Neuro HPI - General Chief Complaint: Neuro Symptoms/Deficit Stated Complaint: R arm pain Time Seen by Provider: 08/08/18 17:35 Source: patient, EMS, RN notes reviewed, old records reviewed Mode of arrival: EMS Limitations: no limitations - History of Present Illness Is the patient presenting with stroke symptoms?: No Initial Comments: This is a 42-year-old male the ER for evaluation. They presents for evaluation regards to paresthesia-type symptoms numbness and tingling over out overall his entire body. Patient also feels weak. Patient has had similar symptoms before he believes with elevated blood sugar. Patient's blood sugar has been rehydrated hasn't been feeling well. Denies fever no headache no chest pain or shortness of breath. He has had decreased urination. Patient recently his medication mildly changed after inpatient hospitalization. Patient was admitted for CVA. Location: other (Paresthesias) History of same: Yes (There were worse prior) Place: home Severity: mild Quality: numb, tingling Improves With: none Worsens With: none On Anticoagulants: Yes Context: gradual onset (Started this morning at 9 AM) Associated Symptoms: denies other symptoms Treatments Prior to Arrival: none - Related Data Home Medications: Home Medications Medication Instructions Recorded Confirmed Clopidogrel [Plavix] 75 mg PO QAM 12/03/17 08/08/18 Metoprolol Succinate [Toprol XL] 25 mg PO DAILY@0800 12/03/17 08/08/18 Digoxin [Digitek] 125 mcg PO DAILY@0800 02/01/18 08/08/18 Gabapentin [Neurontin] 400 mg PO TID@0600,1400,2100 02/01/18 08/08/18 Spironolactone [Aldactone] 25 mg PO DAILY@0800 02/01/18 08/08/18 Albuterol Inhaler [Ventolin Hfa 2 puff INHALATION RT-Q6H PRN 04/01/18 08/08/18 Inhaler] Pantoprazole [Protonix] 40 mg PO DAILY 04/01/18 08/08/18 Primidone [Mysoline] 100 mg PO BID 04/01/18 08/08/18 Insulin Glargine [Lantus] 50 unit SQ HS 06/06/18 08/08/18 Lisinopril [Zestril] 5 mg PO DAILY 06/06/18 08/08/18 Paliperidone IM [Invega Sustenna] 234 mg IM Q28D 06/06/18 08/08/18 Rosuvastatin Calcium [Crestor] 40 mg PO DAILY 06/06/18 08/08/18 hydrOXYzine PAMOATE [Vistaril] 50 mg PO HS 06/06/18 08/08/18 Loratadine [Claritin] 10 mg PO DAILY 06/29/18 08/08/18 Torsemide [Demadex] 40 mg PO BID 06/29/18 08/08/18 traMADol HCL [Ultram] 50 mg PO Q6HR PRN 06/29/18 08/08/18 Aspirin EC [Ecotrin Low Dose] 81 mg PO DAILY 07/20/18 08/08/18 INSULIN ASPART (NovoLOG) [NovoLOG 25 unit SQ TID-W/MEALS 07/20/18 08/08/18 (formulary)] INSULIN ASPART (NovoLOG) [NovoLOG See Protocol SQ ACHS 07/20/18 08/08/18 (formulary)] Previous Rx's Medication Instructions Recorded Nitroglycerin Sl Tabs [Nitrostat] 0.4 mg SUBLINGUAL Q5M PRN tab 04/09/18 DULoxetine HCL [Cymbalta] 60 mg PO BID capsule. 05/10/18 Allergies/Adverse Reactions: Allergies Allergy/AdvReac Type Severity Reaction Status Date / Time erythromycin base Allergy Severe Rash/Hives Verified 08/08/18 18:36 [Erythromycin Base] cephalexin monohydrate Allergy Unknown Rash/Hives Verified 08/08/18 18:36 [From Keflex] codeine Allergy Unknown Unknown Verified 08/08/18 18:36 meclizine Allergy Unknown Unknown Verified 08/08/18 18:36 Penicillins Allergy Unknown Rash/Hives Verified 08/08/18 18:36 shellfish derived Allergy Unknown Anaphylaxis Verified 08/08/18 18:36 Fish Containing Products Allergy Anaphylaxis Verified 08/08/18 18:36 [Fish] Iodinated Contrast- Oral and Allergy Anaphylaxis Verified 08/08/18 18:36 IV Dye naproxen AdvReac Unknown Compromises Verified 08/08/18 18:36 Kidney Function atorvastatin calcium AdvReac Myalgia Verified 08/08/18 18:36 [From Lipitor] hydrocodone [From [place]] AdvReac Rapid Verified 08/08/18 18:36 Heart Rate Review of Systems ROS Statement: Those systems with pertinent positive or pertinent negative responses have been documented in the HPI. ROS Other: All systems not noted in ROS Statement are negative. General Exam Limitations: no limitations General appearance: alert, in no apparent distress Head exam: Present: atraumatic, normocephalic, normal inspection Eye exam: Present: normal appearance, PERRL, EOMI. Absent: scleral icterus, conjunctival injection, periorbital swelling ENT exam: Present: normal exam, mucous membranes moist Neck exam: Present: normal inspection. Absent: tenderness, meningismus, lymphadenopathy Respiratory exam: Present: normal lung sounds bilaterally. Absent: respiratory distress, wheezes, rales, rhonchi, stridor Cardiovascular Exam: Present: regular rate, normal rhythm, normal heart sounds. Absent: systolic murmur, diastolic murmur, rubs, gallop, clicks GI/Abdominal exam: Present: soft, normal bowel sounds. Absent: distended, tenderness, guarding, rebound, rigid Extremities exam: Present: normal inspection, full ROM, normal capillary refill. Absent: tenderness, pedal edema, joint swelling, calf tenderness Back exam: Present: normal inspection Neurological exam: Present: alert, oriented X3, CN II-XII intact Psychiatric exam: Present: normal affect, normal mood Skin exam: Present: warm, dry, intact, normal color. Absent: rash Stroke MDM - Lab Data Result diagrams: 08/08/18 18:09 08/08/18 18:09 Lab Results 08/08/18 08/08/18 08/08/18 Range/Units 17:28 17:38 18:09 WBC (3.8-10.6) k/uL RBC (4.30-5.90) m/uL Hgb (13.0-17.5) gm/dL Hct (39.0-53.0) % MCV (80.0-100.0) fL MCH (25.0-35.0) pg MCHC (31.0-37.0) g/dL RDW (11.5-15.5) % Plt Count (150-450) k/uL Neutrophils % % Lymphocytes % % Monocytes % % Eosinophils % % Basophils % % Neutrophils # (1.3-7.7) k/uL Lymphocytes # (1.0-4.8) k/uL Monocytes # (0-1.0) k/uL Eosinophils # (0-0.7) k/uL Basophils # (0-0.2) k/uL Hypochromasia PT (9.0-12.0) sec INR (<1.2) APTT (22.0-30.0) sec Sodium 121 L (137-145) mmol/L Potassium 5.2 H (3.5-5.1) mmol/L Chloride 86 L (98-107) mmol/L Carbon Dioxide 22 (22-30) mmol/L Anion Gap 13 mmol/L BUN 37 H (9-20) mg/dL Creatinine 1.06 (0.66-1.25) mg/dL Est GFR (CKD-EPI)AfAm >90 (>60 ml/min/1.73 sqM) Est GFR (CKD-EPI)NonAf 87 (>60 ml/min/1.73 sqM) Glucose 799 H* (74-99) mg/dL POC Glucose (mg/dL) >600 H (75-99) mg/dL POC Glu Foreign [employer] ID Sudarshan Pickett Calcium 8.9 (8.4-10.2) mg/dL Phosphorus 4.4 (2.5-4.5) mg/dL Magnesium 1.5 L (1.6-2.3) mg/dL Total Bilirubin 0.8 (0.2-1.3) mg/dL AST 26 (17-59) U/L ALT 37 (21-72) U/L Alkaline Phosphatase 222 H (38-126) U/L Troponin I (0.000-0.034) ng/mL Total Protein 5.9 L (6.3-8.2) g/dL Albumin 3.4 L (3.5-5.0) g/dL Urine Color Colorless Urine Appearance Clear (Clear) Urine pH 5.0 (5.0-8.0) Ur Specific Hershey 1.006 (1.001-1.035) Urine Protein Negative (Negative) Urine Glucose (UA) 4+ H (Negative) Urine Ketones Negative (Negative) Urine Blood Negative (Negative) Urine Nitrite Negative (Negative) Urine Bilirubin Negative (Negative) Urine Urobilinogen <2.0 (<2.0) mg/dL Ur Leukocyte Esterase Negative (Negative) Acetone, Qual Negative (Negative) 03/17/19 03/17/19 03/17/19 Range/Units 18:09 18:09 18:09 WBC 6.0 (3.8-10.6) k/uL RBC 5.01 (4.30-5.90) m/uL Hgb 13.5 (13.0-17.5) gm/dL Hct 42.7 (39.0-53.0) % MCV 85.2 (80.0-100.0) fL MCH 27.0 (25.0-35.0) pg MCHC 31.7 (31.0-37.0) g/dL RDW 14.9 (11.5-15.5) % Plt Count 234 (150-450) k/uL Neutrophils % 72 % Lymphocytes % 17 % Monocytes % 5 % Eosinophils % 4 % Basophils % 1 % Neutrophils # 4.3 (1.3-7.7) k/uL Lymphocytes # 1.0 (1.0-4.8) k/uL Monocytes # 0.3 (0-1.0) k/uL Eosinophils # 0.2 (0-0.7) k/uL Basophils # 0.1 (0-0.2) k/uL Hypochromasia Slight PT 10.3 (9.0-12.0) sec INR 1.0 (<1.2) APTT 22.5 (22.0-30.0) sec Sodium (137-145) mmol/L Potassium (3.5-5.1) mmol/L Chloride (98-107) mmol/L Carbon Dioxide (22-30) mmol/L Anion Gap mmol/L BUN (9-20) mg/dL Creatinine (0.66-1.25) mg/dL Est GFR (CKD-EPI)AfAm (>60 ml/min/1.73 sqM) Est GFR (CKD-EPI)NonAf (>60 ml/min/1.73 sqM) Glucose (74-99) mg/dL POC Glucose (mg/dL) (75-99) mg/dL POC Glu Foreign Diplomat ID Calcium (8.4-10.2) mg/dL Phosphorus (2.5-4.5) mg/dL Magnesium (1.6-2.3) mg/dL Total Bilirubin (0.2-1.3) mg/dL AST (17-59) U/L ALT (21-72) U/L Alkaline Phosphatase (38-126) U/L Troponin I 0.018 (0.000-0.034) ng/mL Total Protein (6.3-8.2) g/dL Albumin (3.5-5.0) g/dL Urine Color Urine Appearance (Clear) Urine pH (5.0-8.0) Ur Specific Hershey (1.001-1.035) Urine Protein (Negative) Urine Glucose (UA) (Negative) Urine Ketones (Negative) Urine Blood (Negative) Urine Nitrite (Negative) Urine Bilirubin (Negative) Urine Urobilinogen (<2.0) mg/dL Ur Leukocyte Esterase (Negative) Acetone, Qual (Negative) - NIH Stroke Scale 1a. Level of Consciousness: (0) alert 1b. LOC Questions: (0) answers correctly 1c. LOC Commands: (0) performs tasks correctly 2. Best Gaze: (0) normal 3. Visual: (0) no visual loss 4. Facial Palsy: (0) normal symmetrical movement 5a. Motor Arm Left: (0) no drift 5b. Motor Arm Right: (0) no drift 6a. Motor Leg Left: (0) no drift 6b. Motor Leg Right: (0) no drift 7. Limb Ataxia: (0) absent 8. Sensory: (0) normal 9. Best Language: (0) no aphasia 10. Dysarthria: (0) normal 11. Extinction/Inattention: (0) no abnormality - Thrombolytic Inclusion/Exclusion Thrombolytic Exclusion Criteria: Symptom Onset > 3 Hours - Medical Decision Making 40 female the ER with history of diabetes coming in with uncontrolled diabetes hyperglycemia. Multiple left foot abnormalities. Patient will be admitted for correction - Radiology Data Radiology results: report reviewed (CT brain is negative for acute disease), image reviewed - EKG Data -: EKG Interpreted by Me (EKG shows sinus rhythm rate of 80, SC 150, QRS 90, QTc 433) Past Medical History Past Medical History: Asthma, Coronary Artery Disease (CAD), Chest Pain / Angina, Heart Failure, CVA/TIA, Diabetes Mellitus, Deep Vein Thrombosis (DVT), GERD/Reflux, Hyperlipidemia, Hypertension, Myocardial Infarction (NV), Osteoarthritis (OA), Pneumonia, Skin Disorder, Sleep Apnea/CPAP/BIPAP Additional Past Medical History / Comment(s): multiple vessel CAD, ischemic cardiomyopathy, diabetic neuropathy bilateral hands and feet, hypertensive cardiovascular disease, SHELIA with no device, chronic gastritis, degenerative disc disease, chronic back pain, depression with hx of suicide attempts, gastroparesis, psoriasis, UTI, migraines, TIA, PUD, hiatal hernia, L rotator cuff tear, bronchitis, pseudoaneurysm L groin post procedure. 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 Date of Last Stent Placement:: 10/2017 Type of Cardiac Device: Biventricular Pacemaker, AICD Device Placement Date:: 09/19/15 Past Psychological History: Anxiety, Depression, PTSD Smoking Status: Never smoker Past Alcohol Use History: None Reported Past Drug Use History: None Reported - Past Family History Mother Family Medical History: Coronary Artery Disease (CAD), Myocardial Infarction (NV) Additional Family Medical History / Comment(s): 7 NV and faulty heart valve. Pt does not know the age when mother had her NV's. Father History Unknown: Yes Additional Family Medical History / Comment(s): Does not know who father is. Brother(s) Family Medical History: Cancer, Congestive Heart Failure (CHF), Myocardial Infarction (NV) Additional Family Medical History / Comment(s): Parkinsons. Pt does not know at what age his brother had an NV. Patient's other brother has lung CA Patient has Family Medical History: No Reported History Additional Family Medical History / Comment(s): There is a strong family history for heart disease, hypertension, and diabetes. Course Vital Signs 03/17/19 17:24 Temperature 97.9 F Pulse Rate 81 Respiratory 18 Rate Blood Pressure 110/77 O2 Sat by Pulse 97 Oximetry - Reevaluation(s) Reevaluation #1: 08/08/18 20:00 Medical record is reviewed Reevaluation #2: 08/08/18 20:00 Patient symptoms are improving with IV hydration Disposition Clinical Impression: Hyperglycemia, Weakness, Dehydration, Paresthesia Disposition: ADMITTED IP TO THIS HOSP Condition: Fair Is patient prescribed a controlled substance at d/c from ED?: No
[2018-08-08 18:19] LABS: Basophils # (A) 0.1 k/uL (0-0.2); Basophils % (A) 1 %; Eosinophils # (A) 0.2 k/uL (0-0.7); Eosinophils % (A) 4 %; HCT 42.7 % (39.0-53.0); HGB 13.5 gm/dL (13.0-17.5); Hypochromasia Slight; Lymphocytes % (A) 17 %; MCHC 31.7 g/dL (31.0-37.0); MCV 85.2 fL (80.0-100.0); Mean Platelet Volume 7.5; Monocytes # (A) 0.3 k/uL (0-1.0); Monocytes % (A) 5 %; Neutrophils # (A) 4.3 k/uL (1.3-7.7); Neutrophils % (A) 72 %; Platelet Count 234 k/uL (150-450); RBC 5.01 m/uL (4.30-5.90); RDW 14.9 % (11.5-15.5)
[2018-08-08 18:19] LABS: Appearance,Urine Clear (Clear); Bilirubin,Urine Negative (Negative); Blood,Urine Negative (Negative); Color,Urine Colorless; Glucose,Urine (UA) 4+ (Negative); Ketones,Urine Negative (Negative); Leukocyte Esterase,Urine Negative (Negative); Nitrite,Urine Negative (Negative); Protein,Urine Negative (Negative); Specific Gravity,Urine 1.006 (1.001-1.035); Urobilinogen,Urine <2.0 mg/dL (<2.0)
[2018-08-08 18:28] LABS: Partial Thromboplastin Time 22.5 sec (22.0-30.0); Prothrombin Time 10.3 sec (9.0-12.0)
[2018-08-08 18:29] LABS: ALT 37 U/L (21-72); AST 26 U/L (17-59); Albumin 3.4 g/dL (3.5-5.0); Alkaline Phosphatase 222 U/L (38-126); Anion Gap 13 mmol/L; Blood Urea Nitrogen 37 mg/dL (9-20); Calcium 8.9 mg/dL (8.4-10.2); Carbon Dioxide 22 mmol/L (22-30); Chloride 86 mmol/L (98-107); Magnesium 1.5 mg/dL (1.6-2.3); Phosphorus 4.4 mg/dL (2.5-4.5); Potassium 5.2 mmol/L (3.5-5.1); Sodium 121 mmol/L (137-145); Total Bilirubin 0.8 mg/dL (0.2-1.3); Total Protein 5.9 g/dL (6.3-8.2)
[2018-08-08 18:38] LABS: Glucose 799 mg/dL (74-99)
--- NOTE | 2018-08-08 19:02 | CT ---
EXAMINATION TYPE: CT brain wo con DATE OF EXAM: 08/08/2018 COMPARISON: 07/20/2018 HISTORY: Dizziness. CT DLP: 1133.4 mGycm. Automated Exposure Control for Dose Reduction was Utilized. TECHNIQUE: CT scan of the head is performed without contrast. FINDINGS: Ventricles have normal size. There is no mass effect nor midline shift. There is no sign of intracranial hemorrhage. There is mild cerebral atrophy. The calvarium is intact. IMPRESSION: Mild atrophy. No acute abnormality. No change.
[2018-08-08] MEDS ORDERED: INSULIN REGULAR 100 UNIT in SODIUM CHLORIDE 0.9% 100 ML IV SCH (19:30)
[2018-08-08 20:29] LABS: Glucose,Whole Blood >600 mg/dL (75-99)
[2018-08-08 20:33] VITALS: BMI 38.4
[2018-08-08] MEDS: SODIUM CHLORIDE 0.9% 1,000 ML IV SCH (20:43)
[2018-08-08 21:11] LABS: Anion Gap 12 mmol/L; Blood Urea Nitrogen 36 mg/dL (9-20); Carbon Dioxide 24 mmol/L (22-30); Chloride 88 mmol/L (98-107); Phosphorus 3.8 mg/dL (2.5-4.5); Potassium 4.7 mmol/L (3.5-5.1); Sodium 124 mmol/L (137-145)
[2018-08-08 21:20] LABS: Glucose 675 mg/dL (74-99)
[2018-08-08 22:09] LABS: Glucose,Whole Blood >600 mg/dL (75-99)
[2018-08-08] MEDS: MAGNESIUM SULFATE-D5W PMX 1 GM in DEXTROSE/WATER 1 100ML.BAG IVPB SCH (22:43)
[2018-08-08] MEDS ORDERED: traMADol 50 MG TAB PO PRN (22:49)
[2018-08-08 22:54] LABS: Glucose,Whole Blood 443 mg/dL (75-99)
[2018-08-09 00:04] LABS: Glucose,Whole Blood 275 mg/dL (75-99)
[2018-08-09] MEDS: MAGNESIUM SULFATE-D5W PMX 1 GM in DEXTROSE/WATER 1 100ML.BAG IVPB SCH (00:08)
[2018-08-09] MEDS ORDERED: D5-0.45% NACL WITH KCL 20MEQ/L 1,000 ML IV SCH (00:15)
[2018-08-09] MEDS: SODIUM CHLORIDE 0.9% 1,000 ML IV SCH (00:19)
[2018-08-09 00:37] LABS: Anion Gap 10 mmol/L; Blood Urea Nitrogen 33 mg/dL (9-20); Carbon Dioxide 24 mmol/L (22-30); Chloride 95 mmol/L (98-107); Glucose 292 mg/dL (74-99); Potassium 3.7 mmol/L (3.5-5.1); Sodium 129 mmol/L (137-145)
[2018-08-09 01:12] LABS: Glucose,Whole Blood 200 mg/dL (75-99)
[2018-08-09 01:49] LABS: Glucose,Whole Blood 147 mg/dL (75-99)
[2018-08-09 03:05] LABS: Glucose,Whole Blood 92 mg/dL (75-99)
[2018-08-09] MEDS: INSULIN ASPART (NovoLOG) 100 UNIT/ML VIAL SQ SCH ×7 (06:19→21:18)
[2018-08-09 06:28] LABS: Glucose,Whole Blood 123 mg/dL (75-99)
[2018-08-09 10:19] LABS: HCT 39.2 % (39.0-53.0); HGB 12.8 gm/dL (13.0-17.5); MCH 26.8 pg (25.0-35.0); MCHC 32.5 g/dL (31.0-37.0); MCV 82.3 fL (80.0-100.0); Mean Platelet Volume 6.8; Platelet Count 199 k/uL (150-450); RBC 4.77 m/uL (4.30-5.90); RDW 15.3 % (11.5-15.5); WBC 5.7 k/uL (3.8-10.6)
[2018-08-09 10:33] LABS: ALT 49 U/L (21-72); AST 27 U/L (17-59); Albumin 3.1 g/dL (3.5-5.0); Alkaline Phosphatase 114 U/L (38-126); Anion Gap 10 mmol/L; Blood Urea Nitrogen 32 mg/dL (9-20); Calcium 8.7 mg/dL (8.4-10.2); Carbon Dioxide 23 mmol/L (22-30); Chloride 101 mmol/L (98-107); Glucose 113 mg/dL (74-99); Potassium 3.8 mmol/L (3.5-5.1); Sodium 134 mmol/L (137-145); Total Bilirubin 0.4 mg/dL (0.2-1.3); Total Protein 5.4 g/dL (6.3-8.2)
[2018-08-09 11:49] LABS: Glucose,Whole Blood 249 mg/dL (75-99)
[2018-08-09] MEDS: DIGOXIN 125 MCG TAB PO SCH (13:04)
[2018-08-09] MEDS: CLOPIDOGREL 75 MG TAB PO SCH (13:04)
[2018-08-09] MEDS: PANTOPRAZOLE 40 MG TABLET PO SCH (13:04)
[2018-08-09] MEDS: METOPROLOL SUCCINATE (ER) 25 MG TAB.ER.24H PO SCH (13:04)
[2018-08-09] MEDS: ASPIRIN 81 MG PO SCH (13:04)
[2018-08-09 15:18] LABS: Hemoglobin A1C 13.6 % (4.0-6.0)
[2018-08-09] MEDS: TORSEMIDE 20 MG TAB PO SCH (15:48)
[2018-08-09] MEDS: GABAPENTIN 400 MG CAP PO SCH ×2 (15:48→21:18)
[2018-08-09 16:55] LABS: Glucose,Whole Blood 301 mg/dL (75-99)
[2018-08-09 18:36] LABS: HCT 41.6 % (39.0-53.0); HGB 13.6 gm/dL (13.0-17.5); MCH 27.2 pg (25.0-35.0); MCHC 32.7 g/dL (31.0-37.0); MCV 83.1 fL (80.0-100.0); Mean Platelet Volume 6.4; Platelet Count 230 k/uL (150-450); RDW 15.4 % (11.5-15.5); WBC 5.4 k/uL (3.8-10.6)
[2018-08-09 18:48] LABS: ALT 43 U/L (21-72); AST 34 U/L (17-59); Albumin 3.2 g/dL (3.5-5.0); Alkaline Phosphatase 136 U/L (38-126); Anion Gap 8 mmol/L; Blood Urea Nitrogen 25 mg/dL (9-20); Carbon Dioxide 25 mmol/L (22-30); Chloride 99 mmol/L (98-107); Glucose 351 mg/dL (74-99); Potassium 4.5 mmol/L (3.5-5.1); Sodium 132 mmol/L (137-145); Total Bilirubin 0.5 mg/dL (0.2-1.3); Total Protein 5.7 g/dL (6.3-8.2)
[2018-08-09 20:55] LABS: Glucose,Whole Blood 178 mg/dL (75-99)
[2018-08-09] MEDS ORDERED: hydrOXYzine PAMOATE 25 MG CAP PO SCH (21:00)
[2018-08-09] MEDS: DULoxetine HCL 60 MG CAPSULE.DR PO SCH (21:18)
[2018-08-09] MEDS: PRIMIDONE 50 MG TAB PO SCH (21:18)
[2018-08-09 23:10] VITALS: RESP 18
--- NOTE | 2018-08-09 23:56 | P.HPIM ---
History of Present Illness H&P Date: 08/09/18 Chief Complaint: Numbness and tingling all over the body Patient is a 48-year-old male with a known history of asthma,Coronary Artery Disease (CAD), Chest Pain / Angina, Heart Failure, CVA/TIA, Diabetes Mellitus insulin-dependent, Deep Vein Thrombosis (DVT), GERD/Reflux, Hyperlipidemia, Hypertension, Myocardial Infarction (MT), Osteoarthritis (OA), Pneumonia, Skin Disorder, Sleep Apnea/CPAP/BIPAP and other multiple medical problems came to ER with complaints of numbness and tingling all over the body and patient felt very weak. Patient had similar symptoms before any please with elevated blood sugars. Patient was found to have CBG greater than 600 on admission. Otherwise patient denied any fever or chills. No headache or dizziness or lightheadedness. No chest pain or shortness of breath. No cough or sputum production. No dysuria or hematuria. CT brain showed mild atrophy. No acute intracranial process Acetone negative. Sodium 124 Review of Systems Constitutional: Patient denies any fever or chills . No generalized weakness or weight loss. Abdomen: Patient denied nausea vomiting and diarrhea and abdominal pain. Cardiovascular: Patient denies any chest pain or short of breath no palpitations. Respiratory: patient denied any cough is from production. No shortness of breath Neurologic: Patient does have numbness or tingling generalized. No headache. Musculoskeletal: Patient denies any complaints of joint swelling or deformity. Skin: Negative Psychiatric: Negative Endocrine: No heat or cold intolerance. No recent weight gain. Genitourinary: No dysuria or hematuria. All other 14 point ROS negative except the above Past Medical History Past Medical History: Asthma, Coronary Artery Disease (CAD), Chest Pain / Angina, Heart Failure, CVA/TIA, Diabetes Mellitus, Deep Vein Thrombosis (DVT), GERD/Reflux, Hyperlipidemia, Hypertension, Myocardial Infarction (MT), Osteoarthritis (OA), Pneumonia, Skin Disorder, Sleep Apnea/CPAP/BIPAP Additional Past Medical History / Comment(s): multiple vessel CAD, ischemic cardiomyopathy, diabetic neuropathy bilateral hands and feet, hypertensive cardiovascular disease, SHELIA with no device, chronic gastritis, degenerative disc disease, chronic back pain, depression with hx of suicide attempts, gastroparesis, psoriasis, UTI, migraines, TIA, PUD, hiatal hernia, L rotator cuff tear, bronchitis, pseudoaneurysm L groin post procedure. CVA 12/22/18 with TPA administration. Last Myocardial Infarction Date:: October 2017 History of Any Multi-Drug Resistant Organisms: MRSA Date of last positivie culture/infection: 11/05/2017 (Culture done at [facility]) MDRO Source:: legs Past Surgical History: AICD, Appendectomy, Cholecystectomy, Heart Cath eterization With Stent, Hernia Repair Additional Past Surgical History / Comment(s): Pt has had multiple cardiac procedures- caths/stents/PTCA, last stent placed at [facility] -October2017, SAVANNAH, R inguinal hernia repair, umbilical hernia repair, right orchiectomy due to necrosis, right hand surgery r/t injury, colonoscopy, cystoscopy (scraped bladder parrish), stents 10/2017, Past Anesthesia/Blood Transfusion Reactions: No Reported Reaction Additional Past Anesthesia/Blood Transfusion Reaction / Comment(s): . Date of Last Stent Placement:: 10/2017 Type of Cardiac Device: Biventricular Pacemaker, AICD Device Placement Date:: 09/19/15 Past Psychological History: Anxiety, Depression, PTSD Additional Psychological History / Comment(s): Several suicide attempts with use of insulin. PTSD - in 2000 his 3mo old son in his arms (born 2 months premature). He has a walker at home if needed. He drives.pt has 2 adult stepchildren at home with him most of the time. Spouse manages his medications. Smoking Status: Never smoker Past Alcohol Use History: None Reported Additional Past Alcohol Use History / Comment(s): Past alcohol abuse - pt states he quit drinking over 8yrs ago. Past Drug Use History: None Reported Additional Drug Use History / Comment(s): Pt has smoked marijuana in the past - last smoked in 1999. - Past Family History Mother Family Medical History: Coronary Artery Disease (CAD), Myocardial Infarction (MT) Additional Family Medical History / Comment(s): 7 MT and faulty heart valve. Pt does not know the age when mother had her MT's. Father History Unknown: Yes Additional Family Medical History / Comment(s): Does not know who father is. Brother(s) Family Medical History: Cancer, Congestive Heart Failure (CHF), Myocardial Infarction (MT) Additional Family Medical History / Comment(s): Parkinsons. Pt does not know at what age his brother had an MT. Patient's other brother has lung CA Patient has Family Medical History: No Reported History Additional Family Medical History / Comment(s): There is a strong family history for heart disease, hypertension, and diabetes. Medications and Allergies Home Medications Medication Instructions Recorded Confirmed Type Clopidogrel [Plavix] 75 mg PO QAM 12/03/17 08/08/18 History Metoprolol Succinate [Toprol XL] 25 mg PO DAILY@0800 12/03/17 08/08/18 History Digoxin [Digitek] 125 mcg PO DAILY@0800 02/01/18 08/08/18 History Gabapentin [Neurontin] 400 mg PO TID@0600,1400,2100 02/01/18 08/08/18 History Spironolactone [Aldactone] 25 mg PO DAILY@0800 02/01/18 08/08/18 History Albuterol Inhaler [Ventolin Hfa 2 puff INHALATION RT-Q6H PRN 04/01/18 08/08/18 History Inhaler] Pantoprazole [Protonix] 40 mg PO DAILY 04/01/18 08/08/18 History Primidone [Mysoline] 100 mg PO BID 04/01/18 08/08/18 History Nitroglycerin Sl Tabs [Nitrostat] 0.4 mg SUBLINGUAL Q5M PRN tab 04/09/18 08/08/18 Rx DULoxetine HCL [Cymbalta] 60 mg PO BID capsule. 05/10/18 08/08/18 Rx Insulin Glargine [Lantus] 50 unit SQ HS 06/06/18 08/08/18 History Lisinopril [Zestril] 5 mg PO DAILY 06/06/18 08/08/18 History Paliperidone IM [Invega Sustenna] 234 mg IM Q28D 06/06/18 08/08/18 History Rosuvastatin Calcium [Crestor] 40 mg PO DAILY 06/06/18 08/08/18 History hydrOXYzine PAMOATE [Vistaril] 50 mg PO HS 06/06/18 08/08/18 History Loratadine [Claritin] 10 mg PO DAILY 06/29/18 08/08/18 History Torsemide [Demadex] 40 mg PO BID 06/29/18 08/08/18 History traMADol HCL [Ultram] 50 mg PO Q6HR PRN 06/29/18 08/08/18 History Aspirin EC [Ecotrin Low Dose] 81 mg PO DAILY 07/20/18 08/08/18 History INSULIN ASPART (NovoLOG) [NovoLOG 25 unit SQ TID-W/MEALS 07/20/18 08/08/18 History (formulary)] INSULIN ASPART (NovoLOG) [NovoLOG See Protocol SQ ACHS 07/20/18 08/08/18 History (formulary)] Allergies Allergy/AdvReac Type Severity Reaction Status Date / Time erythromycin base Allergy Severe Rash/Hives Verified 08/08/18 18:36 [Erythromycin Base] cephalexin monohydrate Allergy Unknown Rash/Hives Verified 08/08/18 18:36 [From Keflex] codeine Allergy Unknown Unknown Verified 08/08/18 18:36 meclizine Allergy Unknown Unknown Verified 08/08/18 18:36 Penicillins Allergy Unknown Rash/Hives Verified 08/08/18 18:36 shellfish derived Allergy Unknown Anaphylaxis Verified 08/08/18 18:36 Fish Containing Products Allergy Anaphylaxis Verified 08/08/18 18:36 [Fish] Iodinated Contrast- Oral and Allergy Anaphylaxis Verified 08/08/18 18:36 IV Dye naproxen AdvReac Unknown Compromises Verified 08/08/18 18:36 Kidney Function atorvastatin calcium AdvReac Myalgia Verified 08/08/18 18:36 [From Lipitor] hydrocodone [From [place]ruff] AdvReac Rapid Verified 08/08/18 18:36 Heart Rate Physical Exam Vitals: Vital Signs Temp Pulse Pulse Resp BP BP Pulse Ox 08/09/18 08:00 98.5 F 94 16 125/78 95 08/09/18 04:00 97.7 F 86 18 105/67 95 08/09/18 03:38 20 08/08/18 23:46 74 20 08/08/18 20:23 98.2 F 76 20 123/78 100 08/08/18 20:00 76 20 08/08/18 17:24 97.9 F 81 18 110/77 97 Intake and Output 08/08/18 08/09/18 08/09/18 22:59 06:59 14:59 Intake Total 168.262 989.234 0 Output Total 700 800 Balance -531.738 189.234 0 Intake: Intake, IV Titration 18.262 989.234 Amount D5-0.45% NaCl with KCl 150 20Meq/l 1,000 ml @ 150 mls/hr IV .Q6H40M JAKE Rx# :[id number] Insulin Regular 100 unit 18.262 39.234 In Sodium Chloride 0.9% 100 ml @ 0.1 UNITS/KG/HR 10.995 mls/hr IV .Q9H12M JAKE Rx#:[id number] Magnesium Sulfate-D5w Pmx 200 1 gm In Dextrose/Water 1 100ml.bag @ 100 mls/hr IVPB Q1H JAKE Rx#: [id number] Sodium Chloride 0.9% 1, 600 000 ml @ 200 mls/hr IV . Q5H JAKE Rx#:[id number] Oral 150 0 Output: Urine 700 800 Other: Voiding Method Urinal Urinal Urinal # Voids 1 Weight 108.862 kg 107.9 kg 107.9 kg PHYSICAL EXAMINATION: Patient is lying in the bed comfortably, no acute distress, awake alert and oriented.. HEENT: Normocephalic. Neck is supple. Pupils reactive. Nostrils clear. Oral cavity is moist. Ears reveal no drainage. Neck reveals no JVD, carotid bruits, or thyromegaly. CHEST EXAMINATION: Trachea is central. Symmetrical expansion. Bibasilar diminished air entry. Lung hendrix clear to auscultation and percussion. CARDIAC: Normal S1, S2 with no gallops. No murmurs ABDOMEN: Soft. Bowel sounds normal. No organomegaly. No abdominal bruits. Extremities: reveal no edema. No clubbing or cyanosis Neurologically awake, alert, oriented x3 with well-coordinated movements. Generalized weakness. No focal deficits noted Skin: No rash or skin lesions. Psychiatric: Coperative. Nonsuicidal Musculoskeletal: No joint swelling or deformity. Normal range of motion. Results CBC & Chem 7: 08/09/18 18:16 08/09/18 18:16 Labs: Abnormal Lab Results - Last 24 Hours (Table) 08/08/18 08/08/18 08/08/18 Range/Units 17:28 17:38 18:09 Hgb (13.0-17.5) gm/dL Sodium 121 L (137-145) mmol/L Potassium 5.2 H (3.5-5.1) mmol/L Chloride 86 L (98-107) mmol/L BUN 37 H (9-20) mg/dL Glucose 799 H* (74-99) mg/dL POC Glucose (mg/dL) >600 H (75-99) mg/dL Magnesium 1.5 L (1.6-2.3) mg/dL Alkaline Phosphatase 222 H (38-126) U/L Total Protein 5.9 L (6.3-8.2) g/dL Albumin 3.4 L (3.5-5.0) g/dL Urine Glucose (UA) 4+ H (Negative) 08/08/18 08/08/18 08/08/18 Range/Units 20:27 20:35 21:57 Hgb (13.0-17.5) gm/dL Sodium 124 L (137-145) mmol/L Potassium (3.5-5.1) mmol/L Chloride 88 L (98-107) mmol/L BUN 36 H (9-20) mg/dL Glucose 675 H* (74-99) mg/dL POC Glucose (mg/dL) >600 H >600 H (75-99) mg/dL Magnesium (1.6-2.3) mg/dL Alkaline Phosphatase (38-126) U/L Total Protein (6.3-8.2) g/dL Albumin (3.5-5.0) g/dL Urine Glucose (UA) (Negative) 08/08/18 08/09/18 08/09/18 Range/Units 22:50 00:00 00:02 Hgb (13.0-17.5) gm/dL Sodium 129 L (137-145) mmol/L Potassium (3.5-5.1) mmol/L Chloride 95 L (98-107) mmol/L BUN 33 H (9-20) mg/dL Glucose 292 H (74-99) mg/dL POC Glucose (mg/dL) 443 H 275 H (75-99) mg/dL Magnesium (1.6-2.3) mg/dL Alkaline Phosphatase (38-126) U/L Total Protein (6.3-8.2) g/dL Albumin (3.5-5.0) g/dL Urine Glucose (UA) (Negative) 08/09/18 08/09/18 08/09/18 Range/Units 00:52 01:47 06:00 Hgb 12.8 L (13.0-17.5) gm/dL Sodium (137-145) mmol/L Potassium (3.5-5.1) mmol/L Chloride (98-107) mmol/L BUN (9-20) mg/dL Glucose (74-99) mg/dL POC Glucose (mg/dL) 200 H 147 H (75-99) mg/dL Magnesium (1.6-2.3) mg/dL Alkaline Phosphatase (38-126) U/L Total Protein (6.3-8.2) g/dL Albumin (3.5-5.0) g/dL Urine Glucose (UA) (Negative) 08/09/18 08/09/18 08/09/18 Range/Units 06:00 06:15 11:48 Hgb (13.0-17.5) gm/dL Sodium 134 L (137-145) mmol/L Potassium (3.5-5.1) mmol/L Chloride (98-107) mmol/L BUN 32 H (9-20) mg/dL Glucose 113 H (74-99) mg/dL POC Glucose (mg/dL) 123 H 249 H (75-99) mg/dL Magnesium (1.6-2.3) mg/dL Alkaline Phosphatase (38-126) U/L Total Protein 5.4 L (6.3-8.2) g/dL Albumin 3.1 L (3.5-5.0) g/dL Urine Glucose (UA) (Negative) Microbiology - Last 24 Hours (Table) 08/08/18 17:38 Urine Culture - Preliminary Urine,Voided Thrombosis Risk Factor Assmnt - DVT/VTE Prophylaxis DVT/VTE Prophylaxis: Pharmacologic Prophylaxis ordered - Choose All That Apply Any of the Below Risk Factors Present?: Yes Each Factor Represents 1 point: Age 41-60 years, Obesity (BMI >25) Other Risk Factors: Yes Each Risk Factor Represents 3 Points: History of DVT/PE Other congenital or acquired thrombophilia - If yes, enter type in comment: No Thrombosis Risk Factor Assessment Total Risk Factor Score: 5 Thrombosis Risk Factor Assessment Level: High Risk Assessment and Plan Assessment: Hyperglycemia with uncontrolled diabetes type 2. A1c 13.6 Multivitamin coronary artery disease and ischemic cardiomyopathy Diabetic peripheral neuropathy of bilateral hand and feet Hypertensive heart disease obstructive sleep apnea not on CPAP at home Chronic gastritis Degenerative disc disease Chronic back pain Depression with history of suicide attempts Admitting gastroparesis Psoriasis History of migraine headaches History of TIA Hiatal hernia Right rotator cuff tear history History of CVA second helper 2017 with TPA administration Coronary artery disease with history of stent placement History of biventricular pacer, AICD placement Anxiety/depression and PTSD History of multiple suicide attempts History of alcohol abuse History of marijuana use DVT prophylaxis Plan: Patient will be continued on gentle hydration. Patient was started back on his home insulin regimen. Continue the home medications and follow up closely. Blood sugar is fairly controlled now. Further recommendations based on the clinical course. Prognosis is guarded with multiple medical problems and comorbid conditions. Time with Patient: Greater than 30
[2018-08-10 06:13] LABS: Glucose,Whole Blood 297 mg/dL (75-99)
[2018-08-10] MEDS: GABAPENTIN 400 MG CAP PO SCH (06:56)
[2018-08-10] MEDS: PANTOPRAZOLE 40 MG TABLET PO SCH (06:56)
[2018-08-10] MEDS: INSULIN ASPART (NovoLOG) 100 UNIT/ML VIAL SQ SCH ×4 (06:57→12:07)
[2018-08-10 07:03] LABS: Basophils # (A) 0.1 k/uL (0-0.2); Basophils % (A) 1 %; Eosinophils # (A) 0.3 k/uL (0-0.7); Eosinophils % (A) 5 %; Lymphocytes # (A) 1.4 k/uL (1.0-4.8); Lymphocytes % (A) 26 %; MCH 26.2 pg (25.0-35.0); MCHC 31.9 g/dL (31.0-37.0); MCV 82.2 fL (80.0-100.0); Mean Platelet Volume 6.9; Monocytes # (A) 0.3 k/uL (0-1.0); Monocytes % (A) 6 %; Neutrophils # (A) 3.2 k/uL (1.3-7.7); Neutrophils % (A) 60 %; Platelet Count 214 k/uL (150-450); RBC 5.35 m/uL (4.30-5.90); RDW 15.4 % (11.5-15.5); WBC 5.3 k/uL (3.8-10.6)
[2018-08-10 07:28] LABS: Anion Gap 9 mmol/L; Blood Urea Nitrogen 28 mg/dL (9-20); Calcium 9.3 mg/dL (8.4-10.2); Carbon Dioxide 27 mmol/L (22-30); Chloride 99 mmol/L (98-107); Glucose 300 mg/dL (74-99); Potassium 4.4 mmol/L (3.5-5.1); Sodium 135 mmol/L (137-145)
[2018-08-10] MEDS ORDERED: SPIRONOLACTONE 25 MG TAB PO SCH (08:00)
[2018-08-10] MEDS: METOPROLOL SUCCINATE (ER) 25 MG TAB.ER.24H PO SCH (08:59)
[2018-08-10] MEDS: ASPIRIN 81 MG PO SCH (08:59)
[2018-08-10] MEDS: DIGOXIN 125 MCG TAB PO SCH (08:59)
[2018-08-10] MEDS: DULoxetine HCL 60 MG CAPSULE.DR PO SCH (08:59)
[2018-08-10] MEDS: PRIMIDONE 50 MG TAB PO SCH (08:59)
[2018-08-10] MEDS: CLOPIDOGREL 75 MG TAB PO SCH (08:59)
[2018-08-10] MEDS ORDERED: LISINOPRIL 5 MG TAB PO SCH (09:00)
[2018-08-10] MEDS ORDERED: CRESTOR 40MG PO SCH (09:00)
[2018-08-10 09:10] VITALS: TEMP 97.8
[2018-08-10 11:21] LABS: Glucose,Whole Blood 225 mg/dL (75-99)
[2018-08-10] MEDS: TORSEMIDE 20 MG TAB PO SCH (11:36)
[2018-08-10 11:53] VITALS: BP 101/61; PULSE 90
--- NOTE | 2018-08-10 14:28 | CDI ---
Documentation Clarification Form Date: 08/10/2018 1:44:47 PM From: Angie Pandey RN, CCDS Admit Date: 08/08/2018 7:26:00 PM Patient Name: Ti Dunham Visit Number: [id number] Discharge Date: ATTENTION: The Clinical Documentation Specialists (CDI) and [facility] Coding Staff appreciate your assistance in clarifying documentation. Please respond to the clarification below the line at the bottom and electronically sign. The CDI & [facility] Coding staff will review the response and follow-up if needed. Please note: Queries are made part of the Legal Health Record. If you have any questions, please contact the author of this message via ITS. Dr. Jose M Gallagher Heart failure is documented in the patient past medical history and hypertensive heart disease is noted in your H/P on 08/09/18 and further documentation is needed. History/Risk Factors: Coronary Artery Disease, Heart Failure, CVA, TIA, Diabetes Mellitus, Hypertension Clinical Indicators: 48-year old male who present numbness and tingling all over the body. Patient was found to have CBG >600 VS/Pulse OX: 110/77 81 18 97.9 97 % RA BNP; not noted Echocardiogram Results: 07/08/18 EF <20 % , Moderate pulmonary hypertension Treatment: Toprol Xl PO Aldactone PO Zestril PO Demadex PO In your professional opinion, can you please clarify the acuity and type of CHF if known? Chronic Systolic Heart Failure Unable to Determine Other, please specify (Last Revision: August 2017) Chronic Systolic Heart Failure MTDD
[2018-08-10] MEDS ORDERED: INSULIN DETEMIR (LEVEMIR) 100 UNIT/ML SYR SQ SCH (21:00)
--- NOTE | 2018-08-23 01:06 | P.DS ---
Providers Date of admission: 08/08/18 19:26 Expected date of discharge: 08/10/18 Attending physician: Safia Clay Primary care physician: [facility] Hospital Course: Discharge diagnosis Hyperglycemia with uncontrolled diabetes type 2. 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 with TPA administration Coronary artery disease with history of stent placement History of biventricular pacer, AICD placement Anxiety/depression and PTSD History of multiple suicide attempts History of alcohol abuse History of marijuana use DVT prophylaxis Hospital course Patient is a 48-year-old male with a known history of asthma,Coronary Artery Disease (CAD), Chest Pain / Angina, Heart Failure, CVA/TIA, Diabetes Mellitus insulin-dependent, Deep Vein Thrombosis (DVT), GERD/Reflux, Hyperlipidemia, Hypertension, Myocardial Infarction (ME), Osteoarthritis (OA), Pneumonia, Skin Disorder, Sleep Apnea/CPAP/BIPAP and other multiple medical problems came to ER with complaints of numbness and tingling all over the body and patient felt very weak. Patient had similar symptoms before any please with elevated blood sugars. Patient was found to have CBG greater than 600 on admission. Otherwise patient denied any fever or chills. No headache or dizziness or lightheadedness. No chest pain or shortness of breath. No cough or sputum production. No dysuria or hematuria. CT brain showed mild atrophy. No acute intracranial process Acetone negative. Sodium 124 08/10/2018 Patient denied any complaints of chest pain or shortness of breath today. Patient is otherwise more awake and oriented. Blood sugar is controlled. Sodium level is normalized. Patient was counseled extensively for medication complaints. No fever no chills. No nausea vomiting or abdominal pain. Tolerating oral diet. Reviewed on gentle hydration. Stable to be discharged home. PHYSICAL EXAMINATION: Patient is lying in the bed comfortably, no acute distress, awake alert and oriented.. HEENT: Normocephalic. Neck is supple. Pupils reactive. Nostrils clear. Oral cavity is moist. Ears reveal no drainage. Neck reveals no JVD, carotid bruits, or thyromegaly. CHEST EXAMINATION: Trachea is central. Symmetrical expansion. Bibasilar dimini shed air entry. Lung hendrix clear to auscultation and percussion. CARDIAC: Normal S1, S2 with no gallops. No murmurs ABDOMEN: Soft. Bowel sounds normal. No organomegaly. No abdominal bruits. Extremities: reveal no edema. No clubbing or cyanosis Neurologically awake, alert, oriented x3 with well-coordinated movements. Generalized weakness. No focal deficits noted Skin: No rash or skin lesions. Psychiatric: Coperative. Nonsuicidal Musculoskeletal: No joint swelling or deformity. Normal range of motion. Discharge vitals reviewed. Patient Condition at Discharge: Stable Plan - Discharge Summary New Discharge Prescriptions: Continue Metoprolol Succinate [Toprol XL] 25 mg PO DAILY@0800 Clopidogrel [Plavix] 75 mg PO QAM Digoxin [Digitek] 125 mcg PO DAILY@0800 Gabapentin [Neurontin] 400 mg PO TID@0600,1400,2100 Spironolactone [Aldactone] 25 mg PO DAILY@0800 Albuterol Inhaler [Ventolin Hfa Inhaler] 2 puff INHALATION RT-Q6H PRN PRN Reason: Shortness Of Breath Primidone [Mysoline] 100 mg PO BID Pantoprazole [Protonix] 40 mg PO DAILY Nitroglycerin Sl Tabs [Nitrostat] 0.4 mg SUBLINGUAL Q5M PRN tab PRN Reason: Chest Pain DULoxetine HCL [Cymbalta] 60 mg PO BID capsule. Insulin Glargine [Lantus] 50 unit SQ HS Paliperidone IM [Invega Sustenna] 234 mg IM Q28D Rosuvastatin Calcium [Crestor] 40 mg PO DAILY hydrOXYzine PAMOATE [Vistaril] 50 mg PO HS Lisinopril [Zestril] 5 mg PO DAILY traMADol HCL [Ultram] 50 mg PO Q6HR PRN PRN Reason: Pain Torsemide [Demadex] 40 mg PO BID Loratadine [Claritin] 10 mg PO DAILY Aspirin EC [Ecotrin Low Dose] 81 mg PO DAILY INSULIN ASPART (NovoLOG) [NovoLOG (formulary)] See Protocol SQ ACHS INSULIN ASPART (NovoLOG) [NovoLOG (formulary)] 25 unit SQ TID-W/MEALS Discharge Medication List Clopidogrel [Plavix] 75 mg PO QAM 12/03/17 [History] Metoprolol Succinate [Toprol XL] 25 mg PO DAILY@0800 12/03/17 [History] Digoxin [Digitek] 125 mcg PO DAILY@0800 02/01/18 [History] Gabapentin [Neurontin] 400 mg PO TID@0600,1400,2100 02/01/18 [History] Spironolactone [Aldactone] 25 mg PO DAILY@0800 02/01/18 [History] Albuterol Inhaler [Ventolin Hfa Inhaler] 2 puff INHALATION RT-Q6H PRN 04/01/18 [History] Pantoprazole [Protonix] 40 mg PO DAILY 04/01/18 [History] Primidone [Mysoline] 100 mg PO BID 04/01/18 [History] Nitroglycerin Sl Tabs [Nitrostat] 0.4 mg SUBLINGUAL Q5M PRN tab 04/09/18 [Rx] DULoxetine HCL [Cymbalta] 60 mg PO BID capsule. 05/10/18 [Rx] Insulin Glargine [Lantus] 50 unit SQ HS 06/06/18 [History] Lisinopril [Zestril] 5 mg PO DAILY 06/06/18 [History] Paliperidone IM [Invega Sustenna] 234 mg IM Q28D 06/06/18 [History] Rosuvastatin Calcium [Crestor] 40 mg PO DAILY 06/06/18 [History] hydrOXYzine PAMOATE [Vistaril] 50 mg PO HS 06/06/18 [History] Loratadine [Claritin] 10 mg PO DAILY 06/29/18 [History] Torsemide [Demadex] 40 mg PO BID 06/29/18 [History] traMADol HCL [Ultram] 50 mg PO Q6HR PRN 06/29/18 [History] Aspirin EC [Ecotrin Low Dose] 81 mg PO DAILY 07/20/18 [History] INSULIN ASPART (NovoLOG) [NovoLOG (formulary)] 25 unit SQ TID-W/MEALS 07/20/18 [History] INSULIN ASPART (NovoLOG) [NovoLOG (formulary)] See Protocol SQ ACHS 07/20/18 [History] Follow up Appointment(s)/Referral(s): Junie New MD [Primary Care Provider] - 08/17/18 9:00 am Patient Instructions/Handouts: Diabetic Hyperglycemia (DC) Discharge Disposition: HOME SELF-CARE
== END 2018-08-10 13:38 | disposition home or self-care (01) | DRG 638 ==
LOC: EC 17:21 → 3SCARD 19:26
PROVIDERS: ADMIT Hospitalist; ATTEND Hospitalist
DX: E11.65 Type 2 diabetes mellitus with hyperglycemia (principal); I50.22 Chronic systolic (congestive) heart failure; I11.0 Hypertensive heart disease with heart failure; E11.42 Type 2 diabetes mellitus with diabetic polyneuropathy; K31.84 Gastroparesis; E11.43 Type 2 diabetes mellitus with diabetic autonomic (poly)neuropathy; J45.909 Unspecified asthma, uncomplicated; I25.10 Atherosclerotic heart disease of native coronary artery without angina pectoris; K21.9 Gastro-esophageal reflux disease without esophagitis; E78.5 Hyperlipidemia, unspecified; I25.2 Old myocardial infarction; M19.90 Unspecified osteoarthritis, unspecified site; G47.33 Obstructive sleep apnea (adult) (pediatric); I25.5 Ischemic cardiomyopathy; E86.0 Dehydration; K29.50 Unspecified chronic gastritis without bleeding; G89.29 Other chronic pain; M54.9 Dorsalgia, unspecified; F32.9 Major depressive disorder, single episode, unspecified; L40.9 Psoriasis, unspecified; G43.909 Migraine, unspecified, not intractable, without status migrainosus; K44.9 Diaphragmatic hernia without obstruction or gangrene; F43.10 Post-traumatic stress disorder, unspecified; F10.11 Alcohol abuse, in remission; F12.11 Cannabis abuse, in remission; Z79.82 Long term (current) use of aspirin; Z79.02 Long term (current) use of antithrombotics/antiplatelets; Z79.4 Long term (current) use of insulin; Z79.899 Other long term (current) drug therapy; Z86.73 Personal history of transient ischemic attack (TIA), and cerebral infarction without residual deficits; Z86.718 Personal history of other venous thrombosis and embolism; Z87.01 Personal history of pneumonia (recurrent); Z91.5 Personal history of self-harm; Z87.11 Personal history of peptic ulcer disease; Z86.14 Personal history of Methicillin resistant Staphylococcus aureus infection; Z95.810 Presence of automatic (implantable) cardiac defibrillator; Z90.49 Acquired absence of other specified parts of digestive tract; Z95.5 Presence of coronary angioplasty implant and graft; Z91.041 Radiographic dye allergy status; Z88.5 Allergy status to narcotic agent; Z88.1 Allergy status to other antibiotic agents; Z88.0 Allergy status to penicillin; Z91.013 Allergy to seafood; Z88.8 Allergy status to other drugs, medicaments and biological substances; Z91.018 Allergy to other foods; Z82.49 Family history of ischemic heart disease and other diseases of the circulatory system; Z82.0 Family history of epilepsy and other diseases of the nervous system; Z80.1 Family history of malignant neoplasm of trachea, bronchus and lung; Z83.3 Family history of diabetes mellitus
CPT/HCPCS: 36415; 70450; 80048; 80051; 80053; 81003; 82009; 82565; 82947; 83036; 83735; 84100; 84484; 84520; 85025; 85027; 85610; 85730; 87086; 93005; 96360; 96361; 99285

== ENCOUNTER → 2018-08-18 | Outpatient (CLI) | payer MEDICARE, OTHER ==
--- NOTE | 2018-08-18 15:28 | CT ---
EXAMINATION TYPE: CT lumbar spine wo con DATE OF EXAM: 08/18/2018 3:17 PM COMPARISON: None HISTORY: Lower back pain. no known injury CT DLP: 996 mGycm Automated exposure control for dose reduction was used. Unenhanced CT of the lumbar spine was performed. Bone and soft tissue window settings are submitted as well as coronal and sagittal reconstructions. L1-L2: Normal disc space height. No disc herniation protrusion or central stenosis. No facet joint arthropathy. No evidence for foraminal encroachment. L2-L3: Normal disc space height. No disc herniation protrusion or central stenosis. No facet joint arthropathy. No evidence for foraminal encroachment. L3-L4: Mild circumferential disc bulging and hypertrophy of the facets. No canal stenosis or focal he rniation. Neural foramina are patent. L4-L5: Normal disc space height. No disc herniation protrusion or central stenosis. Mild circumferen tial disc bulging Mild facet arthropathy. No evidence for foraminal encroachment. L5-S1: Normal disc space height. No disc herniation protrusion or central stenosis. Mild facet hyper trophy. No evidence for foraminal encroachment. Atherosclerotic change of the vasculature. IMPRESSION: 1. Multilevel mild facet arthropathy. 2. Circumferential disc bulging L3-L4 and L4-L5 with no canal stenosis, foraminal encroachment or foc al herniation. Correlate with MRI as clinically warranted.
== END | disposition home or self-care (01) ==
LOC: RADCTMAIN 14:51
PROVIDERS: ATTEND Psychiatry & Neurology Neurology
DX: M51.26 Other intervertebral disc displacement, lumbar region (principal); M46.97 Unspecified inflammatory spondylopathy, lumbosacral region; Z88.5 Allergy status to narcotic agent; Z88.0 Allergy status to penicillin; Z88.8 Allergy status to other drugs, medicaments and biological substances; Z88.1 Allergy status to other antibiotic agents; Z91.041 Radiographic dye allergy status; Z91.013 Allergy to seafood
CPT/HCPCS: 72131

== ENCOUNTER 2018-08-25 20:08 | Emergency (ER) | payer MEDICARE, OTHER ==
[2018-08-25 20:31] VITALS: RESP 16
--- NOTE | 2018-08-25 21:12 | ED ---
General Adult HPI - General Chief complaint: Chest Pain Stated complaint: Body pain Time Seen by Provider: 08/25/18 20:32 Source: patient Mode of arrival: ambulatory Limitations: no limitations - History of Present Illness Initial comments: Dictation was produced using [employer] dictation software. please excuse any grammatical, word or spelling errors. Chief Complaint: 42-year-old male with multiple comorbidities presents with back pain History of Present Illness: 42-year-old male. He reports that he is here for one day of chest and back pain. Patient states he feels like there is something that's wrong with him. States his whole body hurts. Patient reports that he was walking around paying bills when he started experiencing pain. Denies any cough, chills or night sweats. Patient states he is having no trouble ambulating. Patient denies any overt sick contacts. Denies any neuro deficits. The ROS documented in this emergency department record has been reviewed and confirmed by me. Those systems with pertinent positive or negative responses have been documented in the HPI. All other systems are other negative and/or noncontributory. PHYSICAL EXAM: General Impression: Alert and oriented x3, not in acute distress HEENT: Normocephalic atraumatic, extra-ocular movements intact, pupils equal and reactive to light bilaterally, mucous membranes moist. Cardiovascular: Heart regular rate and rhythm, S1&S2 audible, no murmurs, rubs or gallops Chest: Lungs clear to auscultation bilaterally, no rhonchi, no wheeze, no rales Abdomen: Bowel sounds present, abdomen soft, non-tender, non-distended, no or ganomegaly Musculoskeletal: Pulses present and equal in all extremities, no peripheral edema Motor: no focal deficits noted Neurological: CN II-XII grossly intact, no focal motor or sensory deficits noted Skin: Intact with no visualized rashes Psych: Normal affect and mood ED course: 43-year-old male presents with multiple pain complaints. Vital signs upon arrival are within acceptable limits. Physical examination is benign. Patient does have multiple comorbidities. Lab return evaluation obtained. CBC, metabolic panels obtained. Patient has sodium 123 however with a glucose of 505. This represents pseudohyponatremia. Patient given insulin. His glucose was trended with improvement. Rest of labs are unremarkable. Chest x-ray shows no acute processes. Spine x-ray shows slight abnormality reflecting spasm. Patient ambulatory and tolerated by mouth at bedside. Patient reports being noncompliant with his medications. Patient does however have glucometer and insulin at home. Patient told to follow-up with his primary care physician upon discharge. Patient otherwise appears well. He is agreeable for discharge. EKG interpretation: Ventricular rate 91, normal sinus rhythm, MO interval 190, QRS 90, QTC 428, paced. No MO prolongation, no QTC prolongation, no ST or T-wave changes noted. EKG compared to 08/20/2018 showing no changes. Overall, this EKG is unremarkable - Related Data Home Medications Medication Instructions Recorded Confirmed Clopidogrel [Plavix] 75 mg PO QAM 12/03/17 08/25/18 Metoprolol Succinate [Toprol XL] 25 mg PO DAILY@0800 12/03/17 08/25/18 Digoxin [Digitek] 125 mcg PO DAILY@0800 02/01/18 08/25/18 Gabapentin [Neurontin] 400 mg PO TID@0600,1400,2100 02/01/18 08/25/18 Spironolactone [Aldactone] 25 mg PO DAILY@0800 02/01/18 08/25/18 Albuterol Inhaler [Ventolin Hfa 2 puff INHALATION RT-Q6H PRN 04/01/18 08/25/18 Inhaler] Pantoprazole [Protonix] 40 mg PO DAILY 04/01/18 08/25/18 Primidone [Mysoline] 100 mg PO BID 04/01/18 08/25/18 Insulin Glargine [Lantus] 50 unit SQ HS 06/06/18 08/25/18 Lisinopril [Zestril] 5 mg PO DAILY 06/06/18 08/25/18 Paliperidone IM [Invega Sustenna] 234 mg IM Q28D 06/06/18 08/25/18 Rosuvastatin Calcium [Crestor] 40 mg PO DAILY 06/06/18 08/25/18 hydrOXYzine PAMOATE [Vistaril] 50 mg PO HS 06/06/18 08/25/18 Loratadine [Claritin] 10 mg PO DAILY 06/29/18 08/25/18 Torsemide [Demadex] 40 mg PO BID 06/29/18 08/25/18 Aspirin EC [Ecotrin Low Dose] 81 mg PO DAILY 07/20/18 08/25/18 INSULIN ASPART (NovoLOG) [NovoLOG 25 unit SQ TID-W/MEALS 07/20/18 08/25/18 (formulary)] INSULIN ASPART (NovoLOG) [NovoLOG See Protocol SQ ACHS 07/20/18 08/25/18 (formulary)] Previous Rx's Medication Instructions Recorded Nitroglycerin Sl Tabs [Nitrostat] 0.4 mg SUBLINGUAL Q5M PRN tab 04/09/18 DULoxetine HCL [Cymbalta] 60 mg PO BID capsule. 05/10/18 Allergies Allergy/AdvReac Type Severity Reaction Status Date / Time erythromycin base Allergy Severe Rash/Hives Verified 08/25/18 20:38 [Erythromycin Base] cephalexin monohydrate Allergy Unknown Rash/Hives Verified 08/25/18 20:38 [From Keflex] codeine Allergy Unknown Unknown Verified 08/25/18 20:38 meclizine Allergy Unknown Unknown Verified 08/25/18 20:38 Penicillins Allergy Unknown Rash/Hives Verified 08/25/18 20:38 shellfish derived Allergy Unknown Anaphylaxis Verified 08/25/18 20:38 Fish Containing Products Allergy Anaphylaxis Verified 08/25/18 20:38 [Fish] Iodinated Contrast- Oral and Allergy Anaphylaxis Verified 08/25/18 20:38 IV Dye naproxen AdvReac Unknown Compromises Verified 08/25/18 20:38 Kidney Function atorvastatin calcium AdvReac Myalgia Verified 08/25/18 20:38 [From Lipitor] hydrocodone [From [place]] AdvReac Rapid Verified 08/25/18 20:38 Heart Rate Review of Systems ROS Statement: Those systems with pertinent positive or pertinent negative responses have been documented in the HPI. ROS Other: All systems not noted in ROS Statement are negative. Past Medical History Past Medical History: Asthma, Coronary Artery Disease (CAD), Chest Pain / Angina, Heart Failure, CVA/TIA, Diabetes Mellitus, Deep Vein Thrombosis (DVT), GERD/Reflux, Hyperlipidemia, Hypertension, Myocardial Infarction ([place]), Osteoarthritis (OA), Pneumonia, Skin Disorder, Sleep Apnea/CPAP/BIPAP Additional Past Medical History / Comment(s): multiple vessel CAD, ischemic cardiomyopathy, diabetic neuropathy bilateral hands and feet, hypertensive cardiovascular disease, SHELIA with no device, chronic gastritis, degenerative disc disease, chronic back pain, depression with hx of suicide attempts, gastroparesis, psoriasis, UTI, migraines, TIA, PUD, hiatal hernia, L rotator cuff tear, bronchitis, pseudoaneurysm L groin post procedure. 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 Last Myocardial Infarction Date:: October 2017 History of Any Multi-Drug Resistant Organisms: MRSA Date of last positivie culture/infection: 11/05/2017 (Culture done at 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 Date of Last Stent Placement:: 10/2017 Type of Cardiac Device: Biventricular Pacemaker, AICD Device Placement Date:: 09/19/15 Past Psychological History: Anxiety, Depression, PTSD Smoking Status: Never smoker Past Alcohol Use History: None Reported Past Drug Use History: None Reported - Past Family History Mother Family Medical History: Coronary Artery Disease (CAD), Myocardial Infarction ([place]) Additional Family Medical History / Comment(s): 7 [place] and faulty heart valve. Pt does not know the age when mother had her [place]'s. Father History Unknown: Yes Additional Family Medical History / Comment(s): Does not know who father is. Brother(s) Family Medical History: Cancer, Congestive Heart Failure (CHF), Myocardial Infarction ([place]) Additional Family Medical History / Comment(s): Parkinsons. Pt does not know at what age his brother had an [place]. Patient's other brother has lung CA Patient has Family Medical History: No Reported History Additional Family Medical History / Comment(s): There is a strong family history for heart disease, hypertension, and diabetes. General Exam Limitations: no limitations Course Vital Signs 08/25/18 08/25/18 08/25/18 20:28 20:47 20:50 Temperature 98.5 F Pulse Rate 93 83 87 Respiratory 16 22 21 Rate Blood Pressure 114/70 122/65 O2 Sat by Pulse 96 96 Oximetry 08/25/18 08/25/18 08/25/18 21:30 22:10 22:40 Temperature Pulse Rate 96 90 84 Respiratory 16 18 16 Rate Blood Pressure 110/79 111/69 108/61 O2 Sat by Pulse Oximetry Medical Decision Making - Lab Data Result diagrams: 08/25/18 20:47 08/25/18 20:47 Lab Results 08/25/18 08/25/18 08/25/18 Range/Units 20:47 20:47 20:47 WBC 6.6 (3.8-10.6) k/uL RBC 5.01 (4.30-5.90) m/uL Hgb 13.4 (13.0-17.5) gm/dL Hct 40.2 (39.0-53.0) % MCV 80.3 (80.0-100.0) fL MCH 26.8 (25.0-35.0) pg MCHC 33.4 (31.0-37.0) g/dL RDW 15.3 (11.5-15.5) % Plt Count 221 (150-450) k/uL Neutrophils % 69 % Lymphocytes % 18 % Monocytes % 6 % Eosinophils % 3 % Basophils % 1 % Neutrophils # 4.6 (1.3-7.7) k/uL Lymphocytes # 1.2 (1.0-4.8) k/uL Monocytes # 0.4 (0-1.0) k/uL Eosinophils # 0.2 (0-0.7) k/uL Basophils # 0.1 (0-0.2) k/uL Sodium 123 L (137-145) mmol/L Potassium 4.5 (3.5-5.1) mmol/L Chloride 86 L (98-107) mmol/L Carbon Dioxide 25 (22-30) mmol/L Anion Gap 12 mmol/L BUN 29 H (9-20) mg/dL Creatinine 1.51 H (0.66-1.25) mg/dL Est GFR (CKD-EPI)AfAm 65 (>60 ml/min/1.73 sqM) Est GFR (CKD-EPI)NonAf 56 (>60 ml/min/1.73 sqM) Glucose 505 H* (74-99) mg/dL POC Glucose (mg/dL) (75-99) mg/dL POC Glu Donor Services Manager ID Calcium 8.9 (8.4-10.2) mg/dL Troponin I 0.032 (0.000-0.034) ng/mL 08/25/18 08/25/18 Range/Units 22:46 23:24 WBC (3.8-10.6) k/uL RBC (4.30-5.90) m/uL Hgb (13.0-17.5) gm/dL Hct (39.0-53.0) % MCV (80.0-100.0) fL MCH (25.0-35.0) pg MCHC (31.0-37.0) g/dL RDW (11.5-15.5) % Plt Count (150-450) k/uL Neutrophils % % Lymphocytes % % Monocytes % % Eosinophils % % Basophils % % Neutrophils # (1.3-7.7) k/uL Lymphocytes # (1.0-4.8) k/uL Monocytes # (0-1.0) k/uL Eosinophils # (0-0.7) k/uL Basophils # (0-0.2) k/uL Sodium (137-145) mmol/L Potassium (3.5-5.1) mmol/L Chloride (98-107) mmol/L Carbon Dioxide (22-30) mmol/L Anion Gap mmol/L BUN (9-20) mg/dL Creatinine (0.66-1.25) mg/dL Est GFR (CKD-EPI)AfAm (>60 ml/min/1.73 sqM) Est GFR (CKD-EPI)NonAf (>60 ml/min/1.73 sqM) Glucose (74-99) mg/dL POC Glucose (mg/dL) 362 H 358 H (75-99) mg/dL POC Glu Donor Services Manager ID [place], Rodrigo [place], Rodrigo Calcium (8.4-10.2) mg/dL Troponin I (0.000-0.034) ng/mL Disposition Clinical Impression: Back pain Disposition: HOME SELF-CARE Condition: Good Instructions (If sedation given, give patient instructions): Back Pain (ED) Is patient prescribed a controlled substance at d/c from ED?: No Referrals: Junie New MD [Primary Care Provider] - 1-2 days Time of Disposition: 23:46
--- NOTE | 2018-08-25 21:18 | XR ---
EXAMINATION TYPE: XR chest 2V DATE OF EXAM: 08/25/2018 COMPARISON: 08/20/2018 HISTORY: Chest pain TECHNIQUE: Frontal and lateral views of the chest are obtained. FINDINGS: Heart and mediastinum are normal. Lungs are clear. Diaphragm is normal. Bony thorax is int act. There is left axillary pacemaker. There are chest leads. IMPRESSION: No active cardiopulmonary disease. Normal heart. No change.
[2018-08-25 21:23] LABS: Basophils # (A) 0.1 k/uL (0-0.2); Basophils % (A) 1 %; Eosinophils # (A) 0.2 k/uL (0-0.7); Eosinophils % (A) 3 %; HCT 40.2 % (39.0-53.0); HGB 13.4 gm/dL (13.0-17.5); Lymphocytes # (A) 1.2 k/uL (1.0-4.8); Lymphocytes % (A) 18 %; MCH 26.8 pg (25.0-35.0); MCHC 33.4 g/dL (31.0-37.0); MCV 80.3 fL (80.0-100.0); Mean Platelet Volume 7.3; Monocytes # (A) 0.4 k/uL (0-1.0); Monocytes % (A) 6 %; Neutrophils # (A) 4.6 k/uL (1.3-7.7); Neutrophils % (A) 69 %; Platelet Count 221 k/uL (150-450); RBC 5.01 m/uL (4.30-5.90); RDW 15.3 % (11.5-15.5); WBC 6.6 k/uL (3.8-10.6)
[2018-08-25 21:32] LABS: Calcium 8.9 mg/dL (8.4-10.2); Potassium 4.5 mmol/L (3.5-5.1)
--- NOTE | 2018-08-25 21:35 | XR ---
EXAMINATION TYPE: XR spine complete AP and Lat DATE OF EXAM: 08/25/2018 COMPARISON: NONE HISTORY: Back pain TECHNIQUE: 11 views FINDINGS: Thoracic and lumbar vertebra have fairly normal spacing and alignment. There is no thoracic paraspinal mass. Posterior elements are intact. Sacroiliac joints appear normal. Posterior elements are intact. Cervical vertebra show some straightening. Disc spaces are normal. The atlantoaxial facet joint is no rmal. There are no cervical ribs. IMPRESSION: Mild straightening of the cervical spine can be associated with spasm or ligamentous inju ry. No fracture. Negative thoracic and lumbar spine exam.
[2018-08-25] MEDS ORDERED: SODIUM CHLORIDE 0.9% 1,000 ML IV STA (21:53)
[2018-08-25] MEDS ORDERED: INSULIN REGULAR 100 UNIT/ML VIAL IV ONE ×2 (22:03→23:29)
[2018-08-25 22:47] LABS: Glucose,Whole Blood 362 mg/dL (75-99)
[2018-08-25 23:25] LABS: Glucose,Whole Blood 358 mg/dL (75-99)
[2018-08-26 00:29] LABS: Glucose,Whole Blood 276 mg/dL (75-99)
[2018-08-26 00:52] VITALS: BP 111/58; PULSE 75; TEMP 98
== END 2018-08-26 00:49 | disposition home or self-care (01) ==
LOC: EC 20:08
DX: M54.9 Dorsalgia, unspecified (principal); R07.9 Chest pain, unspecified; I25.119 Atherosclerotic heart disease of native coronary artery with unspecified angina pectoris; J45.909 Unspecified asthma, uncomplicated; I11.0 Hypertensive heart disease with heart failure; I50.9 Heart failure, unspecified; K21.9 Gastro-esophageal reflux disease without esophagitis; E78.5 Hyperlipidemia, unspecified; I25.2 Old myocardial infarction; M19.90 Unspecified osteoarthritis, unspecified site; E11.40 Type 2 diabetes mellitus with diabetic neuropathy, unspecified; F32.9 Major depressive disorder, single episode, unspecified; F41.9 Anxiety disorder, unspecified; F43.10 Post-traumatic stress disorder, unspecified; Z86.14 Personal history of Methicillin resistant Staphylococcus aureus infection; Z86.73 Personal history of transient ischemic attack (TIA), and cerebral infarction without residual deficits; Z86.718 Personal history of other venous thrombosis and embolism; Z79.4 Long term (current) use of insulin; Z79.82 Long term (current) use of aspirin; Z79.01 Long term (current) use of anticoagulants; Z79.899 Other long term (current) drug therapy; Z88.1 Allergy status to other antibiotic agents; Z88.5 Allergy status to narcotic agent; Z91.041 Radiographic dye allergy status; Z91.013 Allergy to seafood; Z88.0 Allergy status to penicillin; Z88.8 Allergy status to other drugs, medicaments and biological substances; Z88.6 Allergy status to analgesic agent; Z95.810 Presence of automatic (implantable) cardiac defibrillator; Z95.1 Presence of aortocoronary bypass graft; Z82.49 Family history of ischemic heart disease and other diseases of the circulatory system
CPT/HCPCS: 36415; 71046; 72082; 80048; 84484; 85025; 93005; 96360; 99285

== ENCOUNTER 2018-08-31 18:35 | Emergency (ER) | payer MEDICARE, OTHER ==
[2018-08-31 18:44] VITALS: TEMP 97.6
[2018-08-31] MEDS ORDERED: DEXTROSE 50%-WATER 50 ML SYRINGE IVP STA ×2 (19:01→22:08)
[2018-08-31] MEDS ORDERED: DEXTROSE 5%-0.45% NACL 1,000 ML IV ONE (19:01)
[2018-08-31 19:12] LABS: Glucose,Whole Blood 129 mg/dL (75-99)
[2018-08-31] MEDS ORDERED: SODIUM CHLORIDE 0.9% 1,000 ML IV ONE (19:29)
[2018-08-31 19:42] LABS: Glucose,Whole Blood 68 mg/dL (75-99)
--- NOTE | 2018-08-31 19:52 | ED ---
Overdose HPI - General Source: patient, RN notes reviewed, old records reviewed Mode of arrival: ambulatory Limitations: no limitations <Aubree Garrett - Last Filed: 09/01/18 03:53> <Ayush Jackman - Last Filed: 09/01/18 11:02> - General Chief Complaint: Overdose Stated Complaint: overdose Time Seen by Provider: 08/31/18 19:16 - History of Present Illness Initial Comments: Patient is a 42-year-old male presents for something intentional overdose. He reports that he used to completely used 2 full novolog flex plans one hour prior to arrival. Apparently this would be 200 units of rapid acting insulin. Patient's emergency department stating he was somewhat diaphoretic. Patient states that he told his sister and mom that he did this. He then decided that it would be frankel to come to the hospital for evaluation and treatment. He states is been dealing with depression to see psychiatry. (Aubree Garrett) - Related Data Home Medications Medication Instructions Recorded Confirmed Clopidogrel [Plavix] 75 mg PO QAM 12/03/17 08/31/18 Metoprolol Succinate [Toprol XL] 25 mg PO DAILY 12/03/17 08/31/18 Digoxin [Digitek] 125 mcg PO DAILY 02/01/18 08/31/18 Gabapentin [Neurontin] 400 mg PO TID 02/01/18 08/31/18 Spironolactone [Aldactone] 25 mg PO DAILY 02/01/18 08/31/18 Albuterol Inhaler [Ventolin Hfa 2 puff INHALATION RT-Q6H PRN 04/01/18 08/31/18 Inhaler] Pantoprazole [Protonix] 40 mg PO DAILY 04/01/18 08/31/18 Primidone [Mysoline] 100 mg PO BID 04/01/18 08/31/18 Insulin Glargine [Lantus] 27 unit SQ HS 06/06/18 08/31/18 Lisinopril [Zestril] 5 mg PO DAILY 06/06/18 08/31/18 Paliperidone IM [Invega Sustenna] 234 mg IM Q28D 06/06/18 08/31/18 hydrOXYzine PAMOATE [Vistaril] 50 mg PO HS 06/06/18 08/31/18 Aspirin EC [Ecotrin Low Dose] 81 mg PO DAILY 07/20/18 08/31/18 INSULIN ASPART (NovoLOG) [NovoLOG 6 unit SQ TID-W/MEALS 07/20/18 08/31/18 (formulary)] INSULIN ASPART (NovoLOG) [NovoLOG See Protocol SQ ACHS 07/20/18 08/31/18 (formulary)] [place] Carbonate 600 mg PO HS 08/31/18 08/31/18 Previous Rx's Medication Instructions Recorded Nitroglycerin Sl Tabs [Nitrostat] 0.4 mg SUBLINGUAL Q5M PRN tab 04/09/18 DULoxetine HCL [Cymbalta] 60 mg PO BID capsule. 05/10/18 Allergies Allergy/AdvReac Type Severity Reaction Status Date / Time erythromycin base Allergy Severe Rash/Hives Verified 08/31/18 22:10 [Erythromycin Base] cephalexin monohydrate Allergy Unknown Rash/Hives Verified 08/31/18 22:10 [From Keflex] codeine Allergy Unknown Unknown Verified 08/31/18 22:10 meclizine Allergy Unknown Unknown Verified 08/31/18 22:10 Penicillins Allergy Unknown Rash/Hives Verified 08/31/18 22:10 shellfish derived Allergy Unknown Anaphylaxis Verified 08/31/18 22:10 Fish Containing Products Allergy Anaphylaxis Verified 08/31/18 22:10 [Fish] Iodinated Contrast- Oral and Allergy Anaphylaxis Verified 08/31/18 22:10 IV Dye naproxen AdvReac Unknown Compromises Verified 08/31/18 22:10 Kidney Function atorvastatin calcium AdvReac Myalgia Verified 08/31/18 22:10 [From Lipitor] hydrocodone [From [place]] AdvReac Rapid Verified 08/31/18 22:10 Heart Rate Review of Systems ROS Other: All systems not noted in ROS Statement are negative. <Aubree Garrett - Last Filed: 09/01/18 03:53> ROS Other: All systems not noted in ROS Statement are negative. <Ayush Jackman - Last Filed: 09/01/18 11:02> ROS Statement: Those systems with pertinent positive or pertinent negative responses have been documented in the HPI. Past Medical History Past Medical History: Asthma, Coronary Artery Disease (CAD), Chest Pain / Angina, Heart Failure, CVA/TIA, Diabetes Mellitus, Deep Vein Thrombosis (DVT), GERD/Reflux, Hyperlipidemia, Hypertension, Myocardial Infarction (OH), Osteoarthritis (OA), Pneumonia, Skin Disorder, Sleep Apnea/CPAP/BIPAP Additional Past Medical History / Comment(s): multiple vessel CAD, ischemic cardiomyopathy, diabetic neuropathy bilateral hands and feet, hypertensive cardiovascular disease, SHELIA with no device, chronic gastritis, degenerative disc disease, chronic back pain, depression with hx of suicide attempts, gastroparesis, psoriasis, UTI, migraines, TIA, PUD, hiatal hernia, L rotator cuff tear, bronchitis, pseudoaneurysm L groin post procedure. 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 Last Myocardial Infarction Date:: October 2017 History of Any Multi-Drug Resistant Organisms: MRSA Date of last positivie culture/infection: 11/05/2017 (Culture done at 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 Date of Last Stent Placement:: 10/2017 Type of Cardiac Device: Biventricular Pacemaker, AICD Device Placement Date:: 09/19/15 Past Psychological History: Anxiety, Depression, PTSD Smoking Status: Never smoker Past Alcohol Use History: None Reported Past Drug Use History: None Reported - Past Family History Mother Family Medical History: Coronary Artery Disease (CAD), Myocardial Infarction (OH) Additional Family Medical History / Comment(s): 7 OH and faulty heart valve. Pt does not know the age when mother had her OH's. Father History Unknown: Yes Additional Family Medical History / Comment(s): Does not know who father is. Brother(s) Family Medical History: Cancer, Congestive Heart Failure (CHF), Myocardial Infarction (OH) Additional Family Medical History / Comment(s): Parkinsons. Pt does not know at what age his brother had an OH. Patient's other brother has lung CA Patient has Family Medical History: No Reported History Additional Family Medical History / Comment(s): There is a strong family history for heart disease, hypertension, and diabetes. <Aubree Garrett - Last Filed: 09/01/18 03:53> General Exam Limitations: no limitations General appearance: alert, in no apparent distress Head exam: Present: atraumatic, normocephalic, normal inspection Eye exam: Present: normal appearance, PERRL, EOMI. Absent: scleral icterus, conjunctival injection, periorbital swelling ENT exam: Present: normal exam, mucous membranes moist Neck exam: Present: normal inspection. Absent: tenderness, meningismus, lymphadenopathy Respiratory exam: Present: normal lung sounds bilaterally. Absent: respiratory distress, wheezes, rales, rhonchi, stridor Cardiovascular Exam: Present: regular rate, normal rhythm, normal heart sounds. Absent: systolic murmur, diastolic murmur, rubs, gallop, clicks GI/Abdominal exam: Present: soft, normal bowel sounds. Absent: distended, ten derness, guarding, rebound, rigid Extremities exam: Present: normal inspection, full ROM, normal capillary refill. Absent: tenderness, pedal edema, joint swelling, calf tenderness Back exam: Present: normal inspection Neurological exam: Present: alert, oriented X3, CN II-XII intact Psychiatric exam: Present: normal affect, normal mood, depressed, suicidal ideation Skin exam: Present: warm, dry, intact, normal color. Absent: rash <Aubree Garrett - Last Filed: 09/01/18 03:53> - General Exam Comments Initial Comments: 42-year-old male. Alert and oriented. No distress. (Aubree Garrett) Course <Aubree Garrett - Last Filed: 09/01/18 03:53> Vital Signs 08/31/18 08/31/18 08/31/18 18:41 19:13 19:59 Temperature 97.6 F Pulse Rate 98 86 86 Respiratory 16 12 16 Rate Blood Pressure 87/60 125/65 O2 Sat by Pulse 96 92 L 97 Oximetry 08/31/18 08/31/18 08/31/18 20:38 22:05 22:52 Temperature Pulse Rate 82 79 81 Respiratory 14 16 16 Rate Blood Pressure 110/67 92/52 112/72 O2 Sat by Pulse 100 98 97 Oximetry 08/31/18 08/31/18 09/01/18 23:34 23:40 00:10 Temperature Pulse Rate 76 79 79 Respiratory Rate Blood Pressure 99/62 99/60 O2 Sat by Pulse 94 L 94 L 98 Oximetry 09/01/18 09/01/18 09/01/18 00:30 00:40 01:10 Temperature Pulse Rate 78 81 Respiratory 18 22 Rate Blood Pressure 99/60 97/57 102/68 O2 Sat by Pulse 94 L 96 95 Oximetry 09/01/18 09/01/18 09/01/18 01:40 02:10 02:40 Temperature Pulse Rate 76 81 79 Respiratory 8 L 16 Rate Blood Pressure 106/62 125/71 108/62 O2 Sat by Pulse 96 98 Oximetry 09/01/18 09/01/18 09/01/18 02:50 03:10 03:40 Temperature Pulse Rate 82 80 80 Respiratory Rate Blood Pressure 108/62 118/74 118/63 O2 Sat by Pulse 98 97 97 Oximetry 09/01/18 09/01/18 09/01/18 04:10 04:40 05:10 Temperature Pulse Rate 80 80 81 Respiratory Rate Blood Pressure 115/71 123/77 110/70 O2 Sat by Pulse 98 96 Oximetry 09/01/18 09/01/18 09/01/18 05:30 05:40 06:10 Temperature Pulse Rate 86 86 88 Respiratory Rate Blood Pressure 110/70 107/63 116/74 O2 Sat by Pulse 95 96 91 L Oximetry 09/01/18 09/01/18 09/01/18 06:30 06:40 07:00 Temperature Pulse Rate 86 86 92 Respiratory Rate Blood Pressure 116/74 121/84 121/84 O2 Sat by Pulse 98 85 L Oximetry 09/01/18 09/01/18 09/01/18 07:30 08:00 08:30 Temperature Pulse Rate 64 82 89 Respiratory 16 17 20 Rate Blood Pressure 124/85 110/73 97/60 O2 Sat by Pulse 97 96 93 L Oximetry 09/01/18 10:30 Temperature Pulse Rate 89 Respiratory 20 Rate Blood Pressure 100/67 O2 Sat by Pulse Oximetry - Reevaluation(s) Reevaluation #1: 09/01/18 01:07 Patient is reevaluated and resting heavily bed. Patient's blood sugar is stable this time 150-110. Patient is medically clear for EPS valuation. He's been out in the ER for 6 hours. (Aubree Garrett) Medical Decision Making - Lab Data Result diagrams: 08/31/18 19:41 08/31/18 19:41 <Aubree Garrett - Last Filed: 09/01/18 03:53> - Lab Data Result diagrams: 08/31/18 19:41 08/31/18 19:41 <Ayush Jackman - Last Filed: 09/01/18 11:02> - Medical Decision Making 42-year-old male presents resources suicidal ideation and intentional overdose on insulin. Patient reports he used to full units of NovoLog insulin. Upon arrival blood sugar was 120. It quickly dropped to 60. He was given D50 and started on D5. Patient states potassium level is 3.1. Given oral [place]. Patient was given food and snacks and was able to tolerate as well. Blood sugar was reevaluated T to remain stable after 6 hours in the ER. Patient is medically clear at this time first EPS evaluation for suicidal thoughts. He states that he wanted to kill himself because he misses his children who aren't been taken from his custody. Patient was evaluated by EPS. Currently pending likely transfer to inpatient psychiatric facility. (Aubree Garrett) 42-year-old male presenting with intentional overdose with insulin. He is observed closely the emergency department, medically cleared after stabilization of blood sugar and evaluated by EPS. He will require inpatient psychiatric care. I was able to completely clinical certification on this patient. (Ayush Jackman) - Lab Data Lab Results 08/31/18 08/31/18 08/31/18 Range/Units 19:10 19:41 19:41 WBC 6.9 (3.8-10.6) k/uL RBC 5.70 (4.30-5.90) m/uL Hgb 15.0 (13.0-17.5) gm/dL Hct 44.8 (39.0-53.0) % MCV 78.5 L (80.0-100.0) fL MCH 26.4 (25.0-35.0) pg MCHC 33.6 (31.0-37.0) g/dL RDW 15.0 (11.5-15.5) % Plt Count 208 (150-450) k/uL Neutrophils % 63 % Lymphocytes % 23 % Monocytes % 6 % Eosinophils % 3 % Basophils % 1 % Neutrophils # 4.3 (1.3-7.7) k/uL Lymphocytes # 1.6 (1.0-4.8) k/uL Monocytes # 0.4 (0-1.0) k/uL Eosinophils # 0.2 (0-0.7) k/uL Basophils # 0.0 (0-0.2) k/uL PT (9.0-12.0) sec INR (<1.2) Sodium 138 (137-145) mmol/L Potassium 3.1 L (3.5-5.1) mmol/L Chloride 99 (98-107) mmol/L Carbon Dioxide 25 (22-30) mmol/L Anion Gap 14 mmol/L BUN 24 H (9-20) mg/dL Creatinine 1.42 H (0.66-1.25) mg/dL Est GFR (CKD-EPI)AfAm 70 (>60 ml/min/1.73 sqM) Est GFR (CKD-EPI)NonAf 61 (>60 ml/min/1.73 sqM) Glucose 71 L (74-99) mg/dL POC Glucose (mg/dL) 129 H (75-99) mg/dL POC Glu Employee Development Manager ID Irvin Lester A Calcium 10.6 H (8.4-10.2) mg/dL Total Bilirubin 0.9 (0.2-1.3) mg/dL AST 20 (17-59) U/L ALT 25 (21-72) U/L Alkaline Phosphatase 127 H (38-126) U/L Total Protein 7.0 (6.3-8.2) g/dL Albumin 4.2 (3.5-5.0) g/dL Lipase 79 (23-300) U/L Urine Color Urine Appearance (Clear) Urine pH (5.0-8.0) Ur Specific [place] (1.001-1.035) Urine Protein (Negative) Urine Glucose (UA) (Negative) Urine Ketones (Negative) Urine Blood (Negative) Urine Nitrite (Negative) Urine Bilirubin (Negative) Urine Urobilinogen (<2.0) mg/dL Ur Leukocyte Esterase (Negative) Urine RBC (0-5) /hpf Urine WBC (0-5) /hpf Ur Squamous Epith Cells (0-4) /hpf Urine Bacteria (None) /hpf Hyaline Casts (0-2) /lpf Urine Mucus (None) /hpf Salicylates <1.0 mg/dL Urine Opiates Screen (NotDetected) Ur Oxycodone Screen (NotDetected) Urine Methadone Screen (NotDetected) Ur Propoxyphene Screen (NotDetected) Acetaminophen <10.0 ug/mL Ur Barbiturates Screen (NotDetected) U Tricyclic Antidepress (NotDetected) Ur Phencyclidine Scrn (NotDetected) Ur Amphetamines Screen (NotDetected) U Methamphetamines Scrn (NotDetected) U Benzodiazepines Scrn (NotDetected) Urine Cocaine Screen (NotDetected) U Marijuana (THC) Screen (NotDetected) Serum Alcohol <10 mg/dL 08/31/18 08/31/18 08/31/18 Range/Units 19:41 19:41 20:33 WBC (3.8-10.6) k/uL RBC (4.30-5.90) m/uL Hgb (13.0-17.5) gm/dL Hct (39.0-53.0) % MCV (80.0-100.0) fL MCH (25.0-35.0) pg MCHC (31.0-37.0) g/dL RDW (11.5-15.5) % Plt Count (150-450) k/uL Neutrophils % % Lymphocytes % % Monocytes % % Eosinophils % % Basophils % % Neutrophils # (1.3-7.7) k/uL Lymphocytes # (1.0-4.8) k/uL Monocytes # (0-1.0) k/uL Eosinophils # (0-0.7) k/uL Basophils # (0-0.2) k/uL PT 10.6 (9.0-12.0) sec INR 1.0 (<1.2) Sodium (137-145) mmol/L Potassium (3.5-5.1) mmol/L Chloride (98-107) mmol/L Carbon Dioxide (22-30) mmol/L Anion Gap mmol/L BUN (9-20) mg/dL Creatinine (0.66-1.25) mg/dL Est GFR (CKD-EPI)AfAm (>60 ml/min/1.73 sqM) Est GFR (CKD-EPI)NonAf (>60 ml/min/1.73 sqM) Glucose (74-99) mg/dL POC Glucose (mg/dL) 68 L 93 (75-99) mg/dL POC Glu Employee Development Manager ID Irvin Lester A Battey, Aaron, A Calcium (8.4-10.2) mg/dL Total Bilirubin (0.2-1.3) mg/dL AST (17-59) U/L ALT (21-72) U/L Alkaline Phosphatase (38-126) U/L Total Protein (6.3-8.2) g/dL Albumin (3.5-5.0) g/dL Lipase (23-300) U/L Urine Color Urine Appearance (Clear) Urine pH (5.0-8.0) Ur Specific [place] (1.001-1.035) Urine Protein (Negative) Urine Glucose (UA) (Negative) Urine Ketones (Negative) Urine Blood (Negative) Urine Nitrite (Negative) Urine Bilirubin (Negative) Urine Urobilinogen (<2.0) mg/dL Ur Leukocyte Esterase (Negative) Urine RBC (0-5) /hpf Urine WBC (0-5) /hpf Ur Squamous Epith Cells (0-4) /hpf Urine Bacteria (None) /hpf Hyaline Casts (0-2) /lpf Urine Mucus (None) /hpf Salicylates mg/dL Urine Opiates Screen (NotDetected) Ur Oxycodone Screen (NotDetected) Urine Methadone Screen (NotDetected) Ur Propoxyphene Screen (NotDetected) Acetaminophen ug/mL Ur Barbiturates Screen (NotDetected) U Tricyclic Antidepress (NotDetected) Ur Phencyclidine Scrn (NotDetected) Ur Amphetamines Screen (NotDetected) U Methamphetamines Scrn (NotDetected) U Benzodiazepines Scrn (NotDetected) Urine Cocaine Screen (NotDetected) U Marijuana (THC) Screen (NotDetected) Serum Alcohol mg/dL 08/31/18 08/31/18 08/31/18 Range/Units 21:13 21:13 22:04 WBC (3.8-10.6) k/uL RBC (4.30-5.90) m/uL Hgb (13.0-17.5) gm/dL Hct (39.0-53.0) % MCV (80.0-100.0) fL MCH (25.0-35.0) pg MCHC (31.0-37.0) g/dL RDW (11.5-15.5) % Plt Count (150-450) k/uL Neutrophils % % Lymphocytes % % Monocytes % % Eosinophils % % Basophils % % Neutrophils # (1.3-7.7) k/uL Lymphocytes # (1.0-4.8) k/uL Monocytes # (0-1.0) k/uL Eosinophils # (0-0.7) k/uL Basophils # (0-0.2) k/uL PT (9.0-12.0) sec INR (<1.2) Sodium (137-145) mmol/L Potassium (3.5-5.1) mmol/L Chloride (98-107) mmol/L Carbon Dioxide (22-30) mmol/L Anion Gap mmol/L BUN (9-20) mg/dL Creatinine (0.66-1.25) mg/dL Est GFR (CKD-EPI)AfAm (>60 ml/min/1.73 sqM) Est GFR (CKD-EPI)NonAf (>60 ml/min/1.73 sqM) Glucose (74-99) mg/dL POC Glucose (mg/dL) 89 (75-99) mg/dL POC Glu Employee Development Manager ID Irvin Lester Arelis Calcium (8.4-10.2) mg/dL Total Bilirubin (0.2-1.3) mg/dL AST (17-59) U/L ALT (21-72) U/L Alkaline Phosphatase (38-126) U/L Total Protein (6.3-8.2) g/dL Albumin (3.5-5.0) g/dL Lipase (23-300) U/L Urine Color Yellow Urine Appearance Clear (Clear) Urine pH 5.0 (5.0-8.0) Ur Specific [place] 1.012 (1.001-1.035) Urine Protein 1+ H (Negative) Urine Glucose (UA) 3+ H (Negative) Urine Ketones Negative (Negative) Urine Blood Small H (Negative) Urine Nitrite Negative (Negative) Urine Bilirubin Negative (Negative) Urine Urobilinogen <2.0 (<2.0) mg/dL Ur Leukocyte Esterase Negative (Negative) Urine RBC 7 H (0-5) /hpf Urine WBC 4 (0-5) /hpf Ur Squamous Epith Cells <1 (0-4) /hpf Urine Bacteria Rare H (None) /hpf Hyaline Casts 104 H (0-2) /lpf Urine Mucus Few H (None) /hpf Salicylates mg/dL Urine Opiates Screen Not Detected (NotDetected) Ur Oxycodone Screen Not Detected (NotDetected) Urine Methadone Screen Not Detected (NotDetected) Ur Propoxyphene Screen Not Detected (NotDetected) Acetaminophen ug/mL Ur Barbiturates Screen Detected H (NotDetected) U Tricyclic Antidepress Not Detected (NotDetected) Ur Phencyclidine Scrn Not Detected (NotDetected) Ur Amphetamines Screen Not Detected (NotDetected) U Methamphetamines Scrn Not Detected (NotDetected) U Benzodiazepines Scrn Not Detected (NotDetected) Urine Cocaine Screen Not Detected (NotDetected) U Marijuana (THC) Screen Not Detected (NotDetected) Serum Alcohol mg/dL 08/31/18 09/01/18 09/01/18 Range/Units 23:08 00:16 01:13 WBC (3.8-10.6) k/uL RBC (4.30-5.90) m/uL Hgb (13.0-17.5) gm/dL Hct (39.0-53.0) % MCV (80.0-100.0) fL MCH (25.0-35.0) pg MCHC (31.0-37.0) g/dL RDW (11.5-15.5) % Plt Count (150-450) k/uL Neutrophils % % Lymphocytes % % Monocytes % % Eosinophils % % Basophils % % Neutrophils # (1.3-7.7) k/uL Lymphocytes # (1.0-4.8) k/uL Monocytes # (0-1.0) k/uL Eosinophils # (0-0.7) k/uL Basophils # (0-0.2) k/uL PT (9.0-12.0) sec INR (<1.2) Sodium (137-145) mmol/L Potassium (3.5-5.1) mmol/L Chloride (98-107) mmol/L Carbon Dioxide (22-30) mmol/L Anion Gap mmol/L BUN (9-20) mg/dL Creatinine (0.66-1.25) mg/dL Est GFR (CKD-EPI)AfAm (>60 ml/min/1.73 sqM) Est GFR (CKD-EPI)NonAf (>60 ml/min/1.73 sqM) Glucose (74-99) mg/dL POC Glucose (mg/dL) 155 H 110 H 84 (75-99) mg/dL POC Glu Employee Development Manager ID Severo, Samir Morgan, Rodrigo Eddie, Rodrigo Calcium (8.4-10.2) mg/dL Total Bilirubin (0.2-1.3) mg/dL AST (17-59) U/L ALT (21-72) U/L Alkaline Phosphatase (38-126) U/L Total Protein (6.3-8.2) g/dL Albumin (3.5-5.0) g/dL Lipase (23-300) U/L Urine Color Urine Appearance (Clear) Urine pH (5.0-8.0) Ur Specific [place] (1.001-1.035) Urine Protein (Negative) Urine Glucose (UA) (Negative) Urine Ketones (Negative) Urine Blood (Negative) Urine Nitrite (Negative) Urine Bilirubin (Negative) Urine Urobilinogen (<2.0) mg/dL Ur Leukocyte Esterase (Negative) Urine RBC (0-5) /hpf Urine WBC (0-5) /hpf Ur Squamous Epith Cells (0-4) /hpf Urine Bacteria (None) /hpf Hyaline Casts (0-2) /lpf Urine Mucus (None) /hpf Salicylates mg/dL Urine Opiates Screen (NotDetected) Ur Oxycodone Screen (NotDetected) Urine Methadone Screen (NotDetected) Ur Propoxyphene Screen (NotDetected) Acetaminophen ug/mL Ur Barbiturates Screen (NotDetected) U Tricyclic Antidepress (NotDetected) Ur Phencyclidine Scrn (NotDetected) Ur Amphetamines Screen (NotDetected) U Methamphetamines Scrn (NotDetected) U Benzodiazepines Scrn (NotDetected) Urine Cocaine Screen (NotDetected) U Marijuana (THC) Screen (NotDetected) Serum Alcohol mg/dL 09/01/18 09/01/18 09/01/18 Range/Units 02:38 03:23 04:46 WBC (3.8-10.6) k/uL RBC (4.30-5.90) m/uL Hgb (13.0-17.5) gm/dL Hct (39.0-53.0) % MCV (80.0-100.0) fL MCH (25.0-35.0) pg MCHC (31.0-37.0) g/dL RDW (11.5-15.5) % Plt Count (150-450) k/uL Neutrophils % % Lymphocytes % % Monocytes % % Eosinophils % % Basophils % % Neutrophils # (1.3-7.7) k/uL Lymphocytes # (1.0-4.8) k/uL Monocytes # (0-1.0) k/uL Eosinophils # (0-0.7) k/uL Basophils # (0-0.2) k/uL PT (9.0-12.0) sec INR (<1.2) Sodium (137-145) mmol/L Potassium (3.5-5.1) mmol/L Chloride (98-107) mmol/L Carbon Dioxide (22-30) mmol/L Anion Gap mmol/L BUN (9-20) mg/dL Creatinine (0.66-1.25) mg/dL Est GFR (CKD-EPI)AfAm (>60 ml/min/1.73 sqM) Est GFR (CKD-EPI)NonAf (>60 ml/min/1.73 sqM) Glucose (74-99) mg/dL POC Glucose (mg/dL) 75 98 94 (75-99) mg/dL POC Glu Employee Development Manager ID Hendley, Rodrigo Hendley, Rodrigo Hendley, Rodrigo Calcium (8.4-10.2) mg/dL Total Bilirubin (0.2-1.3) mg/dL AST (17-59) U/L ALT (21-72) U/L Alkaline Phosphatase (38-126) U/L Total Protein (6.3-8.2) g/dL Albumin (3.5-5.0) g/dL Lipase (23-300) U/L Urine Color Urine Appearance (Clear) Urine pH (5.0-8.0) Ur Specific [place] (1.001-1.035) Urine Protein (Negative) Urine Glucose (UA) (Negative) Urine Ketones (Negative) Urine Blood (Negative) Urine Nitrite (Negative) Urine Bilirubin (Negative) Urine Urobilinogen (<2.0) mg/dL Ur Leukocyte Esterase (Negative) Urine RBC (0-5) /hpf Urine WBC (0-5) /hpf Ur Squamous Epith Cells (0-4) /hpf Urine Bacteria (None) /hpf Hyaline Casts (0-2) /lpf Urine Mucus (None) /hpf Salicylates mg/dL Urine Opiates Screen (NotDetected) Ur Oxycodone Screen (NotDetected) Urine Methadone Screen (NotDetected) Ur Propoxyphene Screen (NotDetected) Acetaminophen ug/mL Ur Barbiturates Screen (NotDetected) U Tricyclic Antidepress (NotDetected) Ur Phencyclidine Scrn (NotDetected) Ur Amphetamines Screen (NotDetected) U Methamphetamines Scrn (NotDetected) U Benzodiazepines Scrn (NotDetected) Urine Cocaine Screen (NotDetected) U Marijuana (THC) Screen (NotDetected) Serum Alcohol mg/dL 09/01/18 09/01/18 09/01/18 Range/Units 05:52 06:49 08:09 WBC (3.8-10.6) k/uL RBC (4.30-5.90) m/uL Hgb (13.0-17.5) gm/dL Hct (39.0-53.0) % MCV (80.0-100.0) fL MCH (25.0-35.0) pg MCHC (31.0-37.0) g/dL RDW (11.5-15.5) % Plt Count (150-450) k/uL Neutrophils % % Lymphocytes % % Monocytes % % Eosinophils % % Basophils % % Neutrophils # (1.3-7.7) k/uL Lymphocytes # (1.0-4.8) k/uL Monocytes # (0-1.0) k/uL Eosinophils # (0-0.7) k/uL Basophils # (0-0.2) k/uL PT (9.0-12.0) sec INR (<1.2) Sodium (137-145) mmol/L Potassium (3.5-5.1) mmol/L Chloride (98-107) mmol/L Carbon Dioxide (22-30) mmol/L Anion Gap mmol/L BUN (9-20) mg/dL Creatinine (0.66-1.25) mg/dL Est GFR (CKD-EPI)AfAm (>60 ml/min/1.73 sqM) Est GFR (CKD-EPI)NonAf (>60 ml/min/1.73 sqM) Glucose (74-99) mg/dL POC Glucose (mg/dL) 108 H 115 H 227 H (75-99) mg/dL POC Glu Employee Development Manager NANCI Eddie, Rodrigo Hendley, Rodrigo Chowdhury, Livia Calcium (8.4-10.2) mg/dL Total Bilirubin (0.2-1.3) mg/dL AST (17-59) U/L ALT (21-72) U/L Alkaline Phosphatase (38-126) U/L Total Protein (6.3-8.2) g/dL Albumin (3.5-5.0) g/dL Lipase (23-300) U/L Urine Color Urine Appearance (Clear) Urine pH (5.0-8.0) Ur Specific [place] (1.001-1.035) Urine Protein (Negative) Urine Glucose (UA) (Negative) Urine Ketones (Negative) Urine Blood (Negative) Urine Nitrite (Negative) Urine Bilirubin (Negative) Urine Urobilinogen (<2.0) mg/dL Ur Leukocyte Esterase (Negative) Urine RBC (0-5) /hpf Urine WBC (0-5) /hpf Ur Squamous Epith Cells (0-4) /hpf Urine Bacteria (None) /hpf Hyaline Casts (0-2) /lpf Urine Mucus (None) /hpf Salicylates mg/dL Urine Opiates Screen (NotDetected) Ur Oxycodone Screen (NotDetected) Urine Methadone Screen (NotDetected) Ur Propoxyphene Screen (NotDetected) Acetaminophen ug/mL Ur Barbiturates Screen (NotDetected) U Tricyclic Antidepress (NotDetected) Ur Phencyclidine Scrn (NotDetected) Ur Amphetamines Screen (NotDetected) U Methamphetamines Scrn (NotDetected) U Benzodiazepines Scrn (NotDetected) Urine Cocaine Screen (NotDetected) U Marijuana (THC) Screen (NotDetected) Serum Alcohol mg/dL 08/31/18 21:10 EKG shows normal sinus rhythm with sinus arrhythmia, rule out possible left atraumatic. Anterolateral infarct age undetermined. Ventricular rate 77 bpm. Was 190 ms. She is[place] 96 most seconds. QT QTc is 396/440 ms. (Aubree Zelaya) Critical Care Time Critical Care Time: Yes Total Critical Care Time: 35 <Ayush Jackman - Last Filed: 09/01/18 11:02> Disposition <Aubree Garrett - Last Filed: 09/01/18 03:53> Is patient prescribed a controlled substance at d/c from ED?: No - Out of Hospital Transfer - Req. Specs Out of Hospital Transfer - Requested Specifics: Psychiatric Non-ICU (Transfer for further psychiatric care.) <Ayush Jackman - Last Filed: 09/01/18 11:02> Clinical Impression: Drug overdose, Suicidal ideations, Suicidal overdose, Hypoglycemia Disposition: OTHER INSTITUTION NOT DEFINED Condition: Stable Referrals: Junie New MD [Primary Care Provider] - 1-2 days
[2018-08-31 20:00] LABS: Basophils % (A) 1 %; Eosinophils # (A) 0.2 k/uL (0-0.7); Eosinophils % (A) 3 %; HCT 44.8 % (39.0-53.0); Lymphocytes # (A) 1.6 k/uL (1.0-4.8); Lymphocytes % (A) 23 %; MCH 26.4 pg (25.0-35.0); MCHC 33.6 g/dL (31.0-37.0); MCV 78.5 fL (80.0-100.0); Mean Platelet Volume 6.9; Monocytes # (A) 0.4 k/uL (0-1.0); Monocytes % (A) 6 %; Neutrophils # (A) 4.3 k/uL (1.3-7.7); Neutrophils % (A) 63 %; Platelet Count 208 k/uL (150-450); WBC 6.9 k/uL (3.8-10.6)
[2018-08-31 20:07] LABS: ALT 25 U/L (21-72); AST 20 U/L (17-59); Acetaminophen <10.0 ug/mL; Albumin 4.2 g/dL (3.5-5.0); Alcohol <10 mg/dL; Alkaline Phosphatase 127 U/L (38-126); Anion Gap 14 mmol/L; Blood Urea Nitrogen 24 mg/dL (9-20); Calcium 10.6 mg/dL (8.4-10.2); Carbon Dioxide 25 mmol/L (22-30); Chloride 99 mmol/L (98-107); Glucose 71 mg/dL (74-99); Lipase 79 U/L (23-300); Potassium 3.1 mmol/L (3.5-5.1); Salicylate <1.0 mg/dL; Sodium 138 mmol/L (137-145); Total Bilirubin 0.9 mg/dL (0.2-1.3)
[2018-08-31 20:08] LABS: Prothrombin Time 10.6 sec (9.0-12.0)
[2018-08-31 20:34] LABS: Glucose,Whole Blood 93 mg/dL (75-99)
[2018-08-31] MEDS ORDERED: POTASSIUM CHLORIDE ER 20 MEQ TAB.ER PO STA (20:38)
[2018-08-31 21:19] LABS: Appearance,Urine Clear (Clear); Bacteria,Urine Rare /hpf; Bilirubin,Urine Negative (Negative); Blood,Urine Small (Negative); Color,Urine Yellow; Glucose,Urine (UA) 3+ (Negative); Hyaline Casts,Urine 104 /lpf (0-2); Ketones,Urine Negative (Negative); Leukocyte Esterase,Urine Negative (Negative); Mucus,Urine Few /hpf; Nitrite,Urine Negative (Negative); Protein,Urine 1+ (Negative); RBC,Urine 7 /hpf (0-5); Specific Gravity,Urine 1.012 (1.001-1.035); Squamous Epithelial Cell,Urine <1 /hpf (0-4); Urobilinogen,Urine <2.0 mg/dL (<2.0); WBC,Urine 4 /hpf (0-5)
[2018-08-31 21:28] LABS: Amphetamine Screen,Urine Not Detected (NotDetected); Barbiturate Screen,Urine Detected (NotDetected); Benzodiazepines Screen,Urine Not Detected (NotDetected); Cocaine Screen,Urine Not Detected (NotDetected); Methadone Screen, Urine Not Detected (NotDetected); Opiate Screen,Urine Not Detected (NotDetected); Oxycodone Screen, Urine Not Detected (NotDetected); Phencyclidine Screen,Urine Not Detected (NotDetected); Tricyclic Antidepressant,Urine Not Detected (NotDetected); Urn Cannabinoid Scrn Not Detected (NotDetected)
[2018-08-31 22:06] LABS: Glucose,Whole Blood 89 mg/dL (75-99)
[2018-08-31 23:21] LABS: Glucose,Whole Blood 155 mg/dL (75-99)
[2018-09-01 00:17] LABS: Glucose,Whole Blood 110 mg/dL (75-99)
[2018-09-01 01:15] LABS: Glucose,Whole Blood 84 mg/dL (75-99)
[2018-09-01 02:40] LABS: Glucose,Whole Blood 75 mg/dL (75-99)
[2018-09-01 03:25] LABS: Glucose,Whole Blood 98 mg/dL (75-99)
[2018-09-01 04:48] LABS: Glucose,Whole Blood 94 mg/dL (75-99)
[2018-09-01 05:54] LABS: Glucose,Whole Blood 108 mg/dL (75-99)
[2018-09-01 06:51] LABS: Glucose,Whole Blood 115 mg/dL (75-99)
[2018-09-01 08:09] LABS: Glucose,Whole Blood 227 mg/dL (75-99)
[2018-09-01] MEDS ORDERED: NITROGLYCERIN SL TABS 0.4 MG TAB SUBLINGUAL PRN (10:58)
[2018-09-01 11:31] LABS: Glucose,Whole Blood 293 mg/dL (75-99)
[2018-09-01 13:50] LABS: Glucose,Whole Blood 322 mg/dL (75-99)
[2018-09-01] MEDS ORDERED: INSULIN ASPART (NovoLOG) 100 UNIT/ML VIAL SQ ONE (13:54)
[2018-09-01] MEDS ORDERED: METOPROLOL SUCCINATE (ER) 25 MG TAB.ER.24H PO SCH (14:00)
[2018-09-01 15:05] LABS: Glucose,Whole Blood 446 mg/dL (75-99)
[2018-09-01 15:24] VITALS: BP 119/74; PULSE 83; RESP 16
[2018-09-01] MEDS ORDERED: GABAPENTIN 400 MG CAP PO SCH (16:00)
[2018-09-01] MEDS ORDERED: HYDROXYZINE PAMOATE 50 MG PO SCH (21:00)
[2018-09-01] MEDS ORDERED: PRIMIDONE 50 MG TAB PO SCH (21:00)
[2018-09-01] MEDS ORDERED: INSULIN GLARGINE 27 UNIT SQ SCH (21:00)
[2018-09-01] MEDS ORDERED: DULoxetine HCL 60 MG CAPSULE.DR PO SCH (21:00)
[2018-09-02] MEDS ORDERED: NON-FORMULARY DRUG (Aspirin Ec 81 MG) PO SCH (09:00)
[2018-09-02] MEDS ORDERED: DIGOXIN 125 MCG TAB PO SCH (09:00)
[2018-09-02] MEDS ORDERED: LISINOPRIL 5 MG TAB PO SCH (09:00)
[2018-09-02] MEDS ORDERED: CLOPIDOGREL 75 MG TAB PO SCH (09:00)
[2018-09-02] MEDS ORDERED: SPIRONOLACTONE 25 MG TAB PO SCH (09:00)
== END 2018-09-01 15:28 | disposition other institution (70) ==
LOC: EC 18:35
DX: T38.3X2A Poisoning by insulin and oral hypoglycemic [antidiabetic] drugs, intentional self-harm, initial encounter (principal); E11.649 Type 2 diabetes mellitus with hypoglycemia without coma; R61 Generalized hyperhidrosis; J45.909 Unspecified asthma, uncomplicated; I25.10 Atherosclerotic heart disease of native coronary artery without angina pectoris; I11.0 Hypertensive heart disease with heart failure; I50.9 Heart failure, unspecified; I25.2 Old myocardial infarction; K21.9 Gastro-esophageal reflux disease without esophagitis; F32.9 Major depressive disorder, single episode, unspecified; E11.43 Type 2 diabetes mellitus with diabetic autonomic (poly)neuropathy; K31.84 Gastroparesis; I49.9 Cardiac arrhythmia, unspecified; I25.5 Ischemic cardiomyopathy; F41.9 Anxiety disorder, unspecified; Z86.14 Personal history of Methicillin resistant Staphylococcus aureus infection; Z86.73 Personal history of transient ischemic attack (TIA), and cerebral infarction without residual deficits; Z86.718 Personal history of other venous thrombosis and embolism; Z87.11 Personal history of peptic ulcer disease; Z87.440 Personal history of urinary (tract) infections; Z95.810 Presence of automatic (implantable) cardiac defibrillator; Z90.49 Acquired absence of other specified parts of digestive tract; Z98.890 Other specified postprocedural states; Z98.61 Coronary angioplasty status; Z87.01 Personal history of pneumonia (recurrent); Z79.02 Long term (current) use of antithrombotics/antiplatelets; Z79.4 Long term (current) use of insulin; Z79.899 Other long term (current) drug therapy; Z79.82 Long term (current) use of aspirin; Z88.0 Allergy status to penicillin; Z88.1 Allergy status to other antibiotic agents; Z88.6 Allergy status to analgesic agent; Z88.8 Allergy status to other drugs, medicaments and biological substances; Z91.013 Allergy to seafood; Z91.041 Radiographic dye allergy status
CPT/HCPCS: 82075; 36415 ×2; 93005; 80053; 83690; 85025; 85610; 81001; 80306; 83520 ×2; 99291; 96374; 96376; 96361 ×11; G0480; 80320

== ENCOUNTER 2018-09-15 06:58 | Emergency (ER) | payer MEDICARE, OTHER ==
--- NOTE | 2018-09-15 08:04 | ED ---
General Adult HPI - General Chief complaint: Neuro Symptoms/Deficit Stated complaint: Poss stroke,face numb, Time Seen by Provider: 09/15/18 07:05 Source: patient, RN notes reviewed Mode of arrival: wheelchair Limitations: no limitations - History of Present Illness Initial comments: This is a 42-year-old male presents emergency Department complaining that he has had facial tingling on the right side of his face and weakness in his right hand and right leg which she states is worsening since Thursday. Patient states on Thursday he went to the emergency department at [facility] he saw Dr. Mariola Garnett told that he was not having strokelike symptoms so the patient left the hospital AMA. Patient states since Thursday the weakness in his arm and leg are worse however when he said that he was able to grab onto the bed railing with one hand and able to pull himself straight up in the bed. 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 Patient denies any headache patient denies chest pain patient denies any difficulty breathing shortness of breath. Patient states his tingling on the face but he denies any actual numbness. Patient states she's had multiple heart attacks in the past and 2 strokes in the past. - Related Data Home Medications Medication Instructions Recorded Confirmed Clopidogrel [Plavix] 75 mg PO QAM 12/03/17 09/15/18 Metoprolol Succinate [Toprol XL] 25 mg PO DAILY 12/03/17 09/15/18 Digoxin [Digitek] 125 mcg PO DAILY 02/01/18 09/15/18 Gabapentin [Neurontin] 400 mg PO TID 02/01/18 09/15/18 Spironolactone [Aldactone] 25 mg PO DAILY 02/01/18 09/15/18 Albuterol Inhaler [Ventolin Hfa 2 puff INHALATION RT-Q6H PRN 04/01/18 09/15/18 Inhaler] Pantoprazole [Protonix] 40 mg PO DAILY 04/01/18 09/15/18 Primidone [Mysoline] 100 mg PO BID 04/01/18 09/15/18 Insulin Glargine [Lantus] 27 unit SQ HS 06/06/18 09/15/18 Lisinopril [Zestril] 5 mg PO DAILY 06/06/18 09/15/18 Paliperidone IM [Invega Sustenna] 234 mg IM Q28D 06/06/18 09/15/18 hydrOXYzine PAMOATE [Vistaril] 50 mg PO HS 06/06/18 09/15/18 Aspirin EC [Ecotrin Low Dose] 81 mg PO DAILY 07/20/18 09/15/18 INSULIN ASPART (NovoLOG) [NovoLOG 6 unit SQ TID-W/MEALS 07/20/18 09/15/18 (formulary)] INSULIN ASPART (NovoLOG) [NovoLOG See Protocol SQ ACHS 07/20/18 09/15/18 (formulary)] Mcnab Carbonate 600 mg PO HS 08/31/18 09/15/18 Previous Rx's Medication Instructions Recorded Nitroglycerin Sl Tabs [Nitrostat] 0.4 mg SUBLINGUAL Q5M PRN tab 04/09/18 DULoxetine HCL [Cymbalta] 60 mg PO BID capsule. 05/10/18 Allergies Allergy/AdvReac Type Severity Reaction Status Date / Time erythromycin base Allergy Severe Rash/Hives Verified 09/15/18 08:50 [Erythromycin Base] cephalexin monohydrate Allergy Unknown Rash/Hives Verified 09/15/18 08:50 [From Keflex] codeine Allergy Unknown Unknown Verified 09/15/18 08:50 meclizine Allergy Unknown Unknown Verified 09/15/18 08:50 Penicillins Allergy Unknown Rash/Hives Verified 09/15/18 08:50 shellfish derived Allergy Unknown Anaphylaxis Verified 09/15/18 08:50 Fish Containing Products Allergy Anaphylaxis Verified 09/15/18 08:50 [Fish] Iodinated Contrast- Oral and Allergy Anaphylaxis Verified 09/15/18 08:50 IV Dye naproxen AdvReac Unknown Compromises Verified 09/15/18 08:50 Kidney Function atorvastatin calcium AdvReac Myalgia Verified 09/15/18 08:50 [From Lipitor] hydrocodone [From [place]] AdvReac Rapid Verified 09/15/18 08:50 Heart Rate Review of Systems ROS Statement: Those systems with pertinent positive or pertinent negative responses have been documented in the HPI. ROS Other: All systems not noted in ROS Statement are negative. Past Medical History Past Medical History: Asthma, Coronary Artery Disease (CAD), Chest Pain / Ang naldo, Heart Failure, CVA/TIA, Diabetes Mellitus, Deep Vein Thrombosis (DVT), GERD/Reflux, Hyperlipidemia, Hypertension, Myocardial Infarction (VA), Osteoarthritis (OA), Pneumonia, Skin Disorder, Sleep Apnea/CPAP/BIPAP Additional Past Medical History / Comment(s): multiple vessel CAD, ischemic cardiomyopathy, diabetic neuropathy bilateral hands and feet, hypertensive cardiovascular disease, SHELIA with no device, chronic gastritis, degenerative disc disease, chronic back pain, depression with hx of suicide attempts, gastroparesis, psoriasis, UTI, migraines, TIA, PUD, hiatal hernia, L rotator cuff tear, bronchitis, pseudoaneurysm L groin post procedure. 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 Date of Last Stent Placement:: 10/2017 Type of Cardiac Device: Biventricular Pacemaker, AICD Device Placement Date:: 09/19/15 Past Psychological History: Anxiety, Depression, PTSD Smoking Status: Never smoker Past Alcohol Use History: None Reported Past Drug Use History: None Reported - Past Family History Mother Family Medical History: Coronary Artery Disease (CAD), Myocardial Infarction (VA) Additional Family Medical History / Comment(s): 7 VA and faulty heart valve. Pt does not know the age when mother had her VA's. Father History Unknown: Yes Additional Family Medical History / Comment(s): Does not know who father is. Brother(s) Family Medical History: Cancer, Congestive Heart Failure (CHF), Myocardial Infarction (VA) Additional Family Medical History / Comment(s): Parkinsons. Pt does not know at what age his brother had an VA. Patient's other brother has lung CA Patient has Family Medical History: No Reported History Additional Family Medical History / Comment(s): There is a strong family history for heart disease, hypertension, and diabetes. General Exam - General Exam Comments Initial Comments: GENERAL: Patient is well-developed and well-nourished. Patient is nontoxic and well- hydrated and is in no acute distress. ENT: Neck is soft and supple. No significant lymphadenopathy is noted. Oropharynx is clear. Moist mucous membranes. Neck has full range of motion without eliciting any pain. EYES: The sclera were anicteric and conjunctiva were pink and moist. Extraocular movements were intact and pupils were equal round and reactive to light. Eyelids were unremarkable. PULMONARY: Unlabored respirations. Good breath sounds bilaterally. No audible rales r honchi or wheezing was noted. CARDIOVASCULAR: There is a regular rate and rhythm without any murmurs gallops or rubs. ABDOMEN: Soft and nontender with normal bowel sounds. No palpable organomegaly was noted. There is no palpable pulsatile mass. SKIN: Skin is clear with no lesions or rashes and otherwise unremarkable. NEUROLOGIC: Patient is alert and oriented x3. Cranial nerves II through XII are grossly intact. Normal speech, volume and content. Symmetrical smile. I cannot detect any weakness in the right side when the patient is distracted he is able to move everything and use both his arm and his leg however when I specifically ask him to do dorsi and plantar flexion with both feet sometimes he has weakness with both plantar and dorsiflexion and sometimes she does not when he seems to be confused when I asked him to move his other foot. Patient again was able to hide examiner the bed with one hand and pull himself up from a supine position. MUSCULOSKELETAL: Normal extremities with adequate strength and full range of motion. LYMPHATICS: No significant lymphadenopathy is noted PSYCHIATRIC: Normal psychiatric evaluation. Limitations: no limitations Course Vital Signs 09/15/18 09/15/18 09/15/18 07:04 09:00 10:00 Temperature 98.4 F Pulse Rate 88 90 89 Respiratory 18 18 15 Rate Blood Pressure 115/76 122/81 120/73 O2 Sat by Pulse 97 97 97 Oximetry Medical Decision Making - Medical Decision Making Patient's EKG shows a paced rhythm at 92 bpm HI interval is on a 56 QRS 114 QT interval 376 QTC is 464. Computed tomography scan of the brain shows no acute abnormality. Chest x-ray shows no acute abnormality. Patient's NIH was approximately one. Patient requests transfer to [facility]. I spoke with Dr. James she agreed to accept the transfer. - Lab Data Result diagrams: 09/15/18 07:28 09/15/18 07:28 Lab Results 09/15/18 09/15/18 09/15/18 Range/Units 07:28 07:28 07:28 WBC 5.4 (3.8-10.6) k/uL RBC 4.44 (4.30-5.90) m/uL Hgb 12.0 L D (13.0-17.5) gm/dL Hct 36.7 L (39.0-53.0) % MCV 82.7 (80.0-100.0) fL MCH 27.0 (25.0-35.0) pg MCHC 32.6 (31.0-37.0) g/dL RDW 15.4 (11.5-15.5) % Plt Count 243 (150-450) k/uL Neutrophils % 67 % Lymphocytes % 21 % Monocytes % 6 % Eosinophils % 3 % Basophils % 1 % Neutrophils # 3.6 (1.3-7.7) k/uL Lymphocytes # 1.1 (1.0-4.8) k/uL Monocytes # 0.3 (0-1.0) k/uL Eosinophils # 0.1 (0-0.7) k/uL Basophils # 0.0 (0-0.2) k/uL Hypochromasia Slight PT 10.8 (9.0-12.0) sec INR 1.0 (<1.2) APTT 22.4 (22.0-30.0) sec Sodium 133 L (137-145) mmol/L Potassium 4.3 (3.5-5.1) mmol/L Chloride 99 (98-107) mmol/L Carbon Dioxide 26 (22-30) mmol/L Anion Gap 8 mmol/L BUN 24 H (9-20) mg/dL Creatinine 0.96 (0.66-1.25) mg/dL Est GFR (CKD-EPI)AfAm >90 (>60 ml/min/1.73 sqM) Est GFR (CKD-EPI)NonAf >90 (>60 ml/min/1.73 sqM) Glucose 277 H (74-99) mg/dL Calcium 9.0 (8.4-10.2) mg/dL Total Bilirubin 1.0 (0.2-1.3) mg/dL AST 15 L (17-59) U/L ALT 26 (21-72) U/L Alkaline Phosphatase 119 (38-126) U/L Troponin I (0.000-0.034) ng/mL Total Protein 5.5 L (6.3-8.2) g/dL Albumin 3.2 L (3.5-5.0) g/dL 09/15/18 Range/Units 07:28 WBC (3.8-10.6) k/uL RBC (4.30-5.90) m/uL Hgb (13.0-17.5) gm/dL Hct (39.0-53.0) % MCV (80.0-100.0) fL MCH (25.0-35.0) pg MCHC (31.0-37.0) g/dL RDW (11.5-15.5) % Plt Count (150-450) k/uL Neutrophils % % Lymphocytes % % Monocytes % % Eosinophils % % Basophils % % Neutrophils # (1.3-7.7) k/uL Lymphocytes # (1.0-4.8) k/uL Monocytes # (0-1.0) k/uL Eosinophils # (0-0.7) k/uL Basophils # (0-0.2) k/uL Hypochromasia PT (9.0-12.0) sec INR (<1.2) APTT (22.0-30.0) sec Sodium (137-145) mmol/L Potassium (3.5-5.1) mmol/L Chloride (98-107) mmol/L Carbon Dioxide (22-30) mmol/L Anion Gap mmol/L BUN (9-20) mg/dL Creatinine (0.66-1.25) mg/dL Est GFR (CKD-EPI)AfAm (>60 ml/min/1.73 sqM) Est GFR (CKD-EPI)NonAf (>60 ml/min/1.73 sqM) Glucose (74-99) mg/dL Calcium (8.4-10.2) mg/dL Total Bilirubin (0.2-1.3) mg/dL AST (17-59) U/L ALT (21-72) U/L Alkaline Phosphatase (38-126) U/L Troponin I 0.046 H* (0.000-0.034) ng/mL Total Protein (6.3-8.2) g/dL Albumin (3.5-5.0) g/dL Critical Care Time Critical Care Time: Yes Total Critical Care Time: 35 Disposition Clinical Impression: Cerebrovascular accident, Elevated troponin Disposition: OTHER INSTITUTION NOT DEFINED Referrals: Junie New MD [Primary Care Provider] - 1-2 days Time of Disposition: 10:15
--- NOTE | 2018-09-15 08:11 | CT ---
EXAMINATION TYPE: CT brain wo con for TPA DATE OF EXAM: 09/15/2018 COMPARISON: 08/08/2018 HISTORY: Rt facial numbness, Rt sided weakness CT DLP: 1085.4 mGycm Automated exposure control for dose reduction was used. FINDINGS: There is no acute intracranial hemorrhage, mass effect, or midline shift identified. The ventricles and sulci are symmetrically prominent compatible with mild degree atrophy. This is slightly pronounce d for the patient's age. There is some patchy hypoattenuation in the periatrial white matter and with in the external capsules. There is also bifrontal white matter change in the centrum semiovale. Findi ngs are unchanged from the prior of 08/08/2018. No suspicious extra-axial fluid collection is seen. Mu cosal retention cysts are seen within the inferior right maxillary sinus. The globes are intact and t he remaining visualized sinuses are clear. Right mastoid air cells are hypoplastic. Left mastoid air cells are well aerated. IMPRESSION: 1. No acute intracranial hemorrhage, mass effect, or midline shift is seen. 2. Cerebral atrophy is slightly advanced for the patient's age. Mild periventricular white matter zeina nge and white matter change in the external capsules as well as the frontal centrum semiovale.
--- NOTE | 2018-09-15 08:13 | XR ---
EXAMINATION TYPE: XR chest 2V DATE OF EXAM: 09/15/2018 COMPARISON: 08/25/2018 INDICATION: Altered mental status history of heart disease and stroke TECHNIQUE: Frontal and lateral views of the chest are obtained. FINDINGS: The heart size is normal. The pulmonary vasculature is normal. The lungs are clear. Pacemaker overlies left chest. IMPRESSION: 1. No acute pulmonary process.
[2018-09-15 08:20] LABS: Basophils % (A) 1 %; Eosinophils # (A) 0.1 k/uL (0-0.7); Eosinophils % (A) 3 %; HCT 36.7 % (39.0-53.0); Hypochromasia Slight; Lymphocytes # (A) 1.1 k/uL (1.0-4.8); Lymphocytes % (A) 21 %; MCHC 32.6 g/dL (31.0-37.0); MCV 82.7 fL (80.0-100.0); Mean Platelet Volume 7.3; Monocytes # (A) 0.3 k/uL (0-1.0); Monocytes % (A) 6 %; Neutrophils # (A) 3.6 k/uL (1.3-7.7); Neutrophils % (A) 67 %; Platelet Count 243 k/uL (150-450); RBC 4.44 m/uL (4.30-5.90); RDW 15.4 % (11.5-15.5); WBC 5.4 k/uL (3.8-10.6)
[2018-09-15 08:21] LABS: Partial Thromboplastin Time 22.4 sec (22.0-30.0); Prothrombin Time 10.8 sec (9.0-12.0)
[2018-09-15 08:22] LABS: ALT 26 U/L (21-72); AST 15 U/L (17-59); Albumin 3.2 g/dL (3.5-5.0); Alkaline Phosphatase 119 U/L (38-126); Anion Gap 8 mmol/L; Blood Urea Nitrogen 24 mg/dL (9-20); Carbon Dioxide 26 mmol/L (22-30); Chloride 99 mmol/L (98-107); Glucose 277 mg/dL (74-99); Potassium 4.3 mmol/L (3.5-5.1); Sodium 133 mmol/L (137-145); Total Protein 5.5 g/dL (6.3-8.2)
[2018-09-15 11:23] VITALS: BP 123/80; PULSE 97; RESP 16; TEMP 97.8
== END 2018-09-15 11:23 | disposition short-term general hospital (02) ==
LOC: EC 06:58
DX: I63.9 Cerebral infarction, unspecified (principal); R29.701 NIHSS score 1; R74.8 Abnormal levels of other serum enzymes; I25.119 Atherosclerotic heart disease of native coronary artery with unspecified angina pectoris; J45.909 Unspecified asthma, uncomplicated; K21.9 Gastro-esophageal reflux disease without esophagitis; I11.0 Hypertensive heart disease with heart failure; I50.9 Heart failure, unspecified; G47.30 Sleep apnea, unspecified; I25.2 Old myocardial infarction; E11.40 Type 2 diabetes mellitus with diabetic neuropathy, unspecified; E11.43 Type 2 diabetes mellitus with diabetic autonomic (poly)neuropathy; K31.84 Gastroparesis; Z79.02 Long term (current) use of antithrombotics/antiplatelets; Z79.4 Long term (current) use of insulin; Z79.82 Long term (current) use of aspirin; Z79.899 Other long term (current) drug therapy; Z88.1 Allergy status to other antibiotic agents; Z88.0 Allergy status to penicillin; Z88.5 Allergy status to narcotic agent; Z88.8 Allergy status to other drugs, medicaments and biological substances; Z91.013 Allergy to seafood; Z91.041 Radiographic dye allergy status; Z88.6 Allergy status to analgesic agent; Z95.5 Presence of coronary angioplasty implant and graft; Z95.0 Presence of cardiac pacemaker
CPT/HCPCS: 36415; 70450; 71046; 80053; 84484; 85025; 85610; 85730; 93005; 99291

== ENCOUNTER 2018-09-19 21:43 | Emergency (ER) | payer MEDICARE, OTHER ==
[2018-09-19 21:50] VITALS: RESP 18
[2018-09-19] MEDS ORDERED: MORPHINE SULFATE 4 MG/ML SYRINGE IV STA (22:09)
[2018-09-19] MEDS ORDERED: ASPIRIN 81 MG PO STA (22:09)
--- NOTE | 2018-09-19 22:18 | ED ---
Chest Pain HPI - General Chief Complaint: Chest Pain Stated Complaint: CHEST PRESSURE Time Seen by Provider: 09/19/18 21:50 Source: patient Mode of arrival: ambulatory Limitations: no limitations - History of Present Illness Initial Comments: Patient is a 42-year-old male presenting for chest pressure. The patient states he has an extensive cardiac history and this pressure started at 9 AM. It is constant and located in the middle of his chest. It is radiating down left arm. There are no modifying factors but he did try 3 nitros which did provide some relief. He states that he was cath'd 2 weeks ago at [facility] and they told him that he needed intervention. He denies any diaphoresis, nausea/vomiting/diarrhea. - Related Data Home Medications Medication Instructions Recorded Confirmed Clopidogrel [Plavix] 75 mg PO QAM 12/03/17 09/19/18 Digoxin [Digitek] 125 mcg PO DAILY 02/01/18 09/19/18 Gabapentin [Neurontin] 400 mg PO TID 02/01/18 09/19/18 Spironolactone [Aldactone] 25 mg PO DAILY 02/01/18 09/19/18 Albuterol Inhaler [Ventolin Hfa 2 puff INHALATION RT-Q6H PRN 04/01/18 09/19/18 Inhaler] Pantoprazole [Protonix] 40 mg PO DAILY 04/01/18 09/19/18 Primidone [Mysoline] 100 mg PO BID 04/01/18 09/19/18 Insulin Glargine [Lantus] 27 unit SQ HS 06/06/18 09/19/18 Lisinopril [Zestril] 5 mg PO DAILY 06/06/18 09/19/18 hydrOXYzine PAMOATE [Vistaril] 50 mg PO HS 06/06/18 09/19/18 Aspirin EC [Ecotrin Low Dose] 81 mg PO DAILY 07/20/18 09/19/18 INSULIN ASPART (NovoLOG) [NovoLOG 6 unit SQ TID-W/MEALS 07/20/18 09/19/18 (formulary)] INSULIN ASPART (NovoLOG) [NovoLOG See Protocol SQ ACHS 07/20/18 09/19/18 (formulary)] Abilify Unknown Dose 1 tab PO BID 09/19/18 09/19/18 Coreg Unknown Dose 1 tab PO BID 09/19/18 09/19/18 Torsemide [Demadex] 40 mg PO QAM 09/19/18 09/19/18 Previous Rx's Medication Instructions Recorded Nitroglycerin Sl Tabs [Nitrostat] 0.4 mg SUBLINGUAL Q5M PRN tab 04/09/18 DULoxetine HCL [Cymbalta] 60 mg PO BID capsule. 05/10/18 Allergies Allergy/AdvReac Type Severity Reaction Status Date / Time erythromycin base Allergy Severe Rash/Hives Verified 09/19/18 21:54 [Erythromycin Base] cephalexin monohydrate Allergy Unknown Rash/Hives Verified 09/19/18 21:54 [From Keflex] codeine Allergy Unknown Unknown Verified 09/19/18 21:54 meclizine Allergy Unknown Unknown Verified 09/19/18 21:54 Penicillins Allergy Unknown Rash/Hives Verified 09/19/18 21:54 shellfish derived Allergy Unknown Anaphylaxis Verified 09/19/18 21:54 Fish Containing Products Allergy Anaphylaxis Verified 09/19/18 21:54 [Fish] Iodinated Contrast- Oral and Allergy Anaphylaxis Verified 09/19/18 21:54 IV Dye naproxen AdvReac Unknown Compromises Verified 09/19/18 21:54 Kidney Function atorvastatin calcium AdvReac Myalgia Verified 09/19/18 21:54 [From Lipitor] hydrocodone [From [place]] AdvReac Rapid Verified 09/19/18 21:54 Heart Rate Review of Systems ROS Statement: Those systems with pertinent positive or pertinent negative responses have been documented in the HPI. Constitutional: Negative for chills, fatigue and fever. HENT: Negative for congestion. Respiratory: Negative for chest tightness, shortness of breath and wheezing. Negative for cough Cardiovascular: Positive for chest pressure and negative for palpitations. Gastrointestinal: Negative for abdominal pain. Negative for abdominal distention, diarrhea, nausea and vomiting. Genitourinary: Negative for dysuria. Musculoskeletal: Negative for back pain, neck pain and neck stiffness. Skin: Negative for color change. Neurological: Negative for dizziness, speech difficulty, weakness and light- headedness. Psychiatric/Behavioral: Negative for agitation and confusion. Negative for anxiety ROS Other: All systems not noted in ROS Statement are negative. EKG Findings - EKG Comments: EKG Findings:: EKG shows ventricularly paced rhythm with a rate of 90 bpm, OH interval 158, QRS 116, QTC 457. Past Medical History Past Medical History: Asthma, Coronary Artery Disease (CAD), Chest Pain / Angina, Heart Failure, CVA/TIA, Diabetes Mellitus, Deep Vein Thrombosis (DVT), GERD/Reflux, Hyperlipidemia, Hypertension, Myocardial Infarction (VT), Osteoarthritis (OA), Pneumonia, Skin Disorder, Sleep Apnea/CPAP/BIPAP Additional Past Medical History / Comment(s): multiple vessel CAD, ischemic cardiomyopathy, diabetic neuropathy bilateral hands and feet, hypertensive cardiovascular disease, SHELIA with no device, chronic gastritis, degenerative disc disease, chronic back pain, depression with hx of suicide attempts, gastroparesis, psoriasis, UTI, migraines, TIA, PUD, hiatal hernia, L rotator cuff tear, bronchitis, pseudoaneurysm L groin post procedure. 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 Date of Last Stent Placement:: 10/2017 Type of Cardiac Device: Biventricular Pacemaker, AICD Device Placement Date:: 09/19/15 Past Psychological History: Anxiety, Depression, PTSD Smoking Status: Never smoker Past Alcohol Use History: None Reported Past Drug Use History: None Reported - Past Family History Mother Family Medical History: Coronary Artery Disease (CAD), Myocardial Infarction (VT) Additional Family Medical History / Comment(s): 7 VT and faulty heart valve. Pt does not know the age when mother had her VT's. Father History Unknown: Yes Additional Family Medical History / Comment(s): Does not know who father is. Brother(s) Family Medical History: Cancer, Congestive Heart Failure (CHF), Myocardial Infarction (VT) Additional Family Medical History / Comment(s): Parkinsons. Pt does not know at what age his brother had an VT. Patient's other brother has lung CA Patient has Family Medical History: No Reported History Additional Family Medical History / Comment(s): There is a strong family history for heart disease, hypertension, and diabetes. General Exam - General Exam Comments Initial Comments: Constitutional: Pt appears well-developed and well-nourished. No distress. Head: Normocephalic and atraumatic. Eyes: EOM are normal. Neck: Normal range of motion. Neck supple. Cardiovascular: Normal rate, regular rhythm, S1 normal, S2 normal and normal heart sounds. Exam reveals no gallop and no friction rub. No murmur heard. Pulmonary/Chest: Effort normal and breath sounds normal. No tachypnea and no bradypnea. No respiratory distress. No wheezes or rales noted. Abdominal: Soft. Bowel sounds are normal. Pt exhibits no shifting dullness, no distension, no pulsatile liver, no fluid wave, no abdominal bruit and no ascites . There is no rigidity, no rebound, no guarding, no tenderness at McBurney's point and negative Mueller's sign. There is no tenderness. Musculoskeletal: Normal range of motion. Neurological: Pt is alert and oriented to person, place, and time. No cranial nerve deficit. Skin: Skin is warm and dry. No rash noted. Pt is not diaphoretic. No erythema. No pallor. Psychiatric: Pt has a normal mood and affect. Pt behavior is normal. Thought content normal. Limitations: no limitations Course Vital Signs 09/19/18 09/19/18 21:46 23:03 Temperature 97.6 F Pulse Rate 94 93 Respiratory 18 18 Rate Blood Pressure 107/67 108/68 O2 Sat by Pulse 100 98 Oximetry Chest Pain MDM - [facility] Laboratory studies showed that hemoglobin was stable at 12.6 and there is no leukocytosis. From electrolyte standpoint, there was hyponatremia of 124 which is thought to be secondary to fluid overload as BNP is almost 2000. There is no evidence of acute kidney injury and therefore the patient was given 40 mg Lasix. Glucose was also measured at 576 but there is also no evidence of DKA. Because of this, patient will be given 10 units of insulin to IV. Troponin was also noted to be negative. Because of the patient's significant past medical history, patient will be transferred to [facility] at his request. Case is discussed with Who accepts the patient transfer. Disposition Clinical Impression: Chest pain, Elevated brain natriuretic peptide (BNP) level, Hyponatremia Disposition: OTHER INSTITUTION NOT DEFINED Condition: Good Instructions (If sedation given, give patient instructions): Chest Pain (ED) Referrals: Junie New MD [Primary Care Provider] - 1-2 days - Out of Hospital Transfer - Req. Specs Out of Hospital Transfer - Requested Specifics: Other Emergency Center ([facility])
[2018-09-19 22:47] LABS: Basophils # (A) 0.1 k/uL (0-0.2); Basophils % (A) 1 %; Eosinophils # (A) 0.2 k/uL (0-0.7); Eosinophils % (A) 3 %; HCT 38.1 % (39.0-53.0); HGB 12.6 gm/dL (13.0-17.5); Lymphocytes # (A) 1.2 k/uL (1.0-4.8); Lymphocytes % (A) 17 %; MCH 27.4 pg (25.0-35.0); Monocytes # (A) 0.3 k/uL (0-1.0); Monocytes % (A) 5 %; Neutrophils % (A) 73 %; Platelet Count 209 k/uL (150-450); RBC 4.59 m/uL (4.30-5.90); WBC 6.9 k/uL (3.8-10.6)
[2018-09-19 22:57] LABS: ALT 29 U/L (21-72); AST 23 U/L (17-59); Albumin 3.6 g/dL (3.5-5.0); Alkaline Phosphatase 168 U/L (38-126); Anion Gap 14 mmol/L; Blood Urea Nitrogen 28 mg/dL (9-20); Calcium 8.8 mg/dL (8.4-10.2); Carbon Dioxide 20 mmol/L (22-30); Chloride 90 mmol/L (98-107); Magnesium 1.7 mg/dL (1.6-2.3); Potassium 4.2 mmol/L (3.5-5.1); Sodium 124 mmol/L (137-145); Total Bilirubin 1.2 mg/dL (0.2-1.3); Total Protein 5.8 g/dL (6.3-8.2)
[2018-09-19 23:03] LABS: Glucose 576 mg/dL (74-99)
[2018-09-19 23:05] VITALS: BP 108/68
[2018-09-19 23:06] LABS: INR 0.9 (<1.2); Prothrombin Time 10.1 sec (9.0-12.0)
[2018-09-19 23:07] LABS: Partial Thromboplastin Time 20.9 sec (22.0-30.0)
--- NOTE | 2018-09-19 23:13 | XR ---
EXAM: XR Chest, 2 Views CLINICAL HISTORY: ITS.REASON XR Reason: Chest Pain TECHNIQUE: Frontal and lateral views of the chest. COMPARISON: 09/15/18 x-ray IMPRESSION: Unchanged heart size. Pacer wires are intact. No consolidation or pleural effusion.
[2018-09-19] MEDS ORDERED: FUROSEMIDE 10 MG/ML 4 ML VIAL IV STA (23:20)
[2018-09-19] MEDS ORDERED: INSULIN REGULAR 100 UNIT/ML VIAL IV ONE (23:25)
[2018-09-20 00:22] VITALS: PULSE 87; TEMP 98.3
== END 2018-09-20 00:34 | disposition short-term general hospital (02) ==
LOC: EC 21:43
DX: E87.1 Hypo-osmolality and hyponatremia (principal); R78.89 Finding of other specified substances, not normally found in blood; R07.89 Other chest pain; J45.909 Unspecified asthma, uncomplicated; I25.119 Atherosclerotic heart disease of native coronary artery with unspecified angina pectoris; I11.0 Hypertensive heart disease with heart failure; I50.9 Heart failure, unspecified; E11.42 Type 2 diabetes mellitus with diabetic polyneuropathy; E11.43 Type 2 diabetes mellitus with diabetic autonomic (poly)neuropathy; K31.84 Gastroparesis; K21.9 Gastro-esophageal reflux disease without esophagitis; M19.90 Unspecified osteoarthritis, unspecified site; F32.9 Major depressive disorder, single episode, unspecified; F41.9 Anxiety disorder, unspecified; Z88.0 Allergy status to penicillin; Z88.1 Allergy status to other antibiotic agents; Z88.5 Allergy status to narcotic agent; Z88.6 Allergy status to analgesic agent; Z88.8 Allergy status to other drugs, medicaments and biological substances; Z91.013 Allergy to seafood; Z91.041 Radiographic dye allergy status; Z79.4 Long term (current) use of insulin; Z79.02 Long term (current) use of antithrombotics/antiplatelets; Z79.82 Long term (current) use of aspirin; Z79.899 Other long term (current) drug therapy; Z86.73 Personal history of transient ischemic attack (TIA), and cerebral infarction without residual deficits; Z86.718 Personal history of other venous thrombosis and embolism; Z86.14 Personal history of Methicillin resistant Staphylococcus aureus infection; Z95.810 Presence of automatic (implantable) cardiac defibrillator; Z95.5 Presence of coronary angioplasty implant and graft; Z82.49 Family history of ischemic heart disease and other diseases of the circulatory system
CPT/HCPCS: 36415; 93005; 83880; 80053; 83735; 84484; 85025; 85610; 85730; 71046; 99285; 96374; 96375; J2270; J1940

== ENCOUNTER 2018-09-28 19:29 | Emergency (ER) | payer MEDICARE, OTHER ==
[2018-09-28] MEDS ORDERED: SODIUM CHLORIDE 0.9% 1,000 ML IV STA (19:47)
--- NOTE | 2018-09-28 19:50 | ED ---
Chest Pain HPI - General Chief Complaint: Chest Pain Stated Complaint: Chest pain Time Seen by Provider: 09/28/18 19:42 Source: patient, RN notes reviewed, old records reviewed Mode of arrival: ambulatory Limitations: no limitations - History of Present Illness Initial Comments: This is a 42-year-old male the ER for evaluation. Patient presents today for evaluation regards chest pain. Persistent continuous chest pain. Mild nausea no vomiting. Pain is severe patient's very paranoid and anxious. Patient is significant history of heart disease. No fevers no cough or congestion and no significant shortness of breath currently. Patient is multiple recent admissions for chest pain with transfer. Patient states he was just transferred to [facility] 2 weeks ago Complaint: chest pain -: days(s) Onset: during rest, during exertion, awoke with symptoms Pain Location: left chest Pain Radiation: jaw/teeth Severity: moderate Severity scale (1-10): 4 Quality: heaviness, similar to prior AL Consistency: constant Improves With: nothing Worsens With: nothing Anginal Symptoms: nausea, sense of impending doom Other Symptoms: palpitations Treatments Prior to Arrival: none - Related Data Home Medications Medication Instructions Recorded Confirmed Clopidogrel [Plavix] 75 mg PO QAM 12/03/17 09/28/18 Digoxin [Digitek] 125 mcg PO DAILY 02/01/18 09/28/18 Spironolactone [Aldactone] 25 mg PO DAILY 02/01/18 09/28/18 Albuterol Inhaler [Ventolin Hfa 2 puff INHALATION RT-Q6H PRN 04/01/18 09/28/18 Inhaler] Pantoprazole [Protonix] 40 mg PO DAILY 04/01/18 09/28/18 Primidone [Mysoline] 100 mg PO BID 04/01/18 09/28/18 Lisinopril [Zestril] 5 mg PO DAILY 06/06/18 09/28/18 hydrOXYzine PAMOATE [Vistaril] 50 mg PO HS 06/06/18 09/28/18 Aspirin EC [Ecotrin Low Dose] 81 mg PO DAILY 07/20/18 09/28/18 Carvedilol [Coreg] 6.25 mg PO BID 09/28/18 09/28/18 Insulin Aspart [NovoLOG] 16 units SQ AC-TID 09/28/18 09/28/18 Insulin Glargine [Lantus] 35 unit SQ HS 09/28/18 09/28/18 Isosorbide Mononitrate ER [Imdur] 60 mg PO DAILY 09/28/18 09/28/18 Metoprolol Succinate [Toprol XL] 25 mg PO DAILY 09/28/18 09/28/18 Rosuvastatin Calcium [Crestor] 40 mg PO DAILY 09/28/18 09/28/18 Previous Rx's Medication Instructions Recorded Nitroglycerin Sl Tabs [Nitrostat] 0.4 mg SUBLINGUAL Q5M PRN tab 04/09/18 DULoxetine HCL [Cymbalta] 60 mg PO BID capsule. 05/10/18 Allergies Allergy/AdvReac Type Severity Reaction Status Date / Time erythromycin base Allergy Severe Rash/Hives Verified 09/19/18 21:54 [Erythromycin Base] cephalexin monohydrate Allergy Unknown Rash/Hives Verified 09/19/18 21:54 [From Keflex] codeine Allergy Unknown Unknown Verified 09/19/18 21:54 meclizine Allergy Unknown Unknown Verified 09/19/18 21:54 Penicillins Allergy Unknown Rash/Hives Verified 09/19/18 21:54 shellfish derived Allergy Unknown Anaphylaxis Verified 09/19/18 21:54 Fish Containing Products Allergy Anaphylaxis Verified 09/19/18 21:54 [Fish] Iodinated Contrast- Oral and Allergy Anaphylaxis Verified 09/19/18 21:54 IV Dye naproxen AdvReac Unknown Compromises Verified 09/19/18 21:54 Kidney Function atorvastatin calcium AdvReac Myalgia Verified 09/19/18 21:54 [From Lipitor] hydrocodone [From [place]] AdvReac Rapid Verified 09/19/18 21:54 Heart Rate Review of Systems ROS Statement: Those systems with pertinent positive or pertinent negative responses have been documented in the HPI. ROS Other: All systems not noted in ROS Statement are negative. EKG Findings - EKG Comments: EKG Findings:: EKG shows sinus tachycardia is paced rhythm of 103, AL 136, QRS 84, QTC 670 - EKG Results: EKG: interpreted by ERMD (When compared to prior EKG it is similar waveform paced rhythm) Past Medical History Past Medical History: Asthma, Coronary Artery Disease (CAD), Chest Pain / Angina, Heart Failure, CVA/TIA, Diabetes Mellitus, Deep Vein Thrombosis (DVT), GERD/Reflux, Hyperlipidemia, Hypertension, Myocardial Infarction (AL), Osteoarthritis (OA), Pneumonia, Skin Disorder, Sleep Apnea/CPAP/BIPAP Additional Past Medical History / Comment(s): multiple vessel CAD, ischemic cardiomyopathy, diabetic neuropathy bilateral hands and feet, hypertensive cardiovascular disease, SHELIA with no device, chronic gastritis, degenerative disc disease, chronic back pain, depression with hx of suicide attempts, gastroparesis, psoriasis, UTI, migraines, TIA, PUD, hiatal hernia, L rotator cuff tear, bronchitis, pseudoaneurysm L groin post procedure. 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 Date of Last Stent Placement:: 10/2017 Type of Cardiac Device: Biventricular Pacemaker, AICD Device Placement Date:: 09/19/15 Past Psychological History: Anxiety, Depression, PTSD Smoking Status: Never smoker Past Alcohol Use History: None Reported Past Drug Use History: None Reported - Past Family History Mother Family Medical History: Coronary Artery Disease (CAD), Myocardial Infarction (AL) Additional Family Medical History / Comment(s): 7 AL and faulty heart valve. Pt does not know the age when mother had her AL's. Father History Unknown: Yes Additional Family Medical History / Comment(s): Does not know who father is. Brother(s) Family Medical History: Cancer, Congestive Heart Failure (CHF), Myocardial Infarction (AL) Additional Family Medical History / Comment(s): Parkinsons. Pt does not know at what age his brother had an AL. Patient's other brother has lung CA Patient has Family Medical History: No Reported History Additional Family Medical History / Comment(s): There is a strong family history for heart disease, hypertension, and diabetes. General Exam Limitations: no limitations General appearance: alert, in no apparent distress, anxious Head exam: Present: atraumatic, normocephalic, normal inspection Eye exam: Present: normal appearance, PERRL, EOMI. Absent: scleral icterus, conjunctival injection, periorbital swelling ENT exam: Present: normal exam, mucous membranes moist Neck exam: Present: normal inspection. Absent: tenderness, meningismus, lymphadenopathy Respiratory exam: Present: normal lung sounds bilaterally. Absent: respiratory distress, wheezes, rales, rhonchi, stridor Cardiovascular Exam: Present: regular rate, normal rhythm, normal heart sounds. Absent: systolic murmur, diastolic murmur, rubs, gallop, clicks GI/Abdominal exam: Present: soft, normal bowel sounds. Absent: distended, tenderness, guarding, rebound, rigid Extremities exam: Present: normal inspection, full ROM, normal capillary refill. Absent: tenderness, pedal edema, joint swelling, calf tenderness Back exam: Present: normal inspection Neurological exam: Present: alert, oriented X3, CN II-XII intact Psychiatric exam: Present: normal affect, normal mood Skin exam: Present: warm, dry, intact, normal color. Absent: rash Course Vital Signs 09/28/18 19:31 Temperature 97.7 F Pulse Rate 108 H Respiratory 16 Rate Blood Pressure 142/86 O2 Sat by Pulse 100 Oximetry - Reevaluation(s) Reevaluation #1: 09/28/18 21:40 Medical records reviewed Reevaluation #2: 09/28/18 21:40 Patient does have elevated troponin, spoke with patient at length, patient requesting transfer to Dr. Mina Spain Chest Pain MDM - MDM 40 male the ER for evaluation, chest pain. Elevated troponin, acute coronary syndrome, patient is paced so EKG is unable to give him S elevation or not. Patient's in no acute distress vital signs normal and stable transfer to Mina Spain [place] at patient's request Critical Care Time Critical Care Time: Yes Total Critical Care Time: 31 Disposition Clinical Impression: Acute non-ST segment elevation myocardial infarction (STEMI) following previous myocardial infarction, AICD (automatic cardioverter/defibrillator) present, Unstable angina pectoris, Acute coronary syndrome Disposition: OTHER INSTITUTION NOT DEFINED Condition: Serious Is patient prescribed a controlled substance at d/c from ED?: No Referrals: Junie New MD [Primary Care Provider] - 1-2 days - Out of Hospital Transfer - Req. Specs Out of Hospital Transfer - Requested Specifics: Other Emergency Center ([facility]
[2018-09-28 20:26] LABS: Basophils # (A) 0.1 k/uL (0-0.2); Basophils % (A) 1 %; Eosinophils # (A) 0.1 k/uL (0-0.7); Eosinophils % (A) 2 %; HCT 38.6 % (39.0-53.0); HGB 12.7 gm/dL (13.0-17.5); Lymphocytes # (A) 1.3 k/uL (1.0-4.8); Lymphocytes % (A) 21 %; MCH 27.1 pg (25.0-35.0); MCHC 32.9 g/dL (31.0-37.0); MCV 82.5 fL (80.0-100.0); Mean Platelet Volume 8.3; Monocytes # (A) 0.2 k/uL (0-1.0); Monocytes % (A) 4 %; Neutrophils # (A) 4.4 k/uL (1.3-7.7); Neutrophils % (A) 72 %; Platelet Count 221 k/uL (150-450); RBC 4.68 m/uL (4.30-5.90); RDW 15.2 % (11.5-15.5); WBC 6.1 k/uL (3.8-10.6)
[2018-09-28 20:40] LABS: INR 0.9 (<1.2)
[2018-09-28 20:41] LABS: Prothrombin Time 10.1 sec (9.0-12.0)
[2018-09-28 20:44] LABS: ALT 30 U/L (21-72); AST 22 U/L (17-59); Albumin 3.4 g/dL (3.5-5.0); Alkaline Phosphatase 111 U/L (38-126); Blood Urea Nitrogen 21 mg/dL (9-20); Calcium 9.2 mg/dL (8.4-10.2); Carbon Dioxide 25 mmol/L (22-30); Glucose 359 mg/dL (74-99); Lipase 113 U/L (23-300); Magnesium 1.6 mg/dL (1.6-2.3); Total Bilirubin 0.7 mg/dL (0.2-1.3); Total Protein 5.7 g/dL (6.3-8.2)
[2018-09-28] MEDS ORDERED: MORPHINE SULFATE 4 MG/ML SYRINGE IVP STA (21:09)
[2018-09-28 21:21] LABS: Anion Gap 10 mmol/L; Chloride 98 mmol/L (98-107); Potassium 3.7 mmol/L (3.5-5.1); Sodium 133 mmol/L (137-145)
--- NOTE | 2018-09-28 21:22 | XR ---
EXAMINATION: XR chest 2V DATE AND TIME: 09/28/2018 8:21 PM CLINICAL INDICATION: PHH; Chest Pain TECHNIQUE: Departmental protocol COMPARISON: 09/19/2018 FINDINGS: The lungs are clear. The pleural spaces are positive for minimally blunted posterior costophrenic angles consistent with t race pleural effusions bilaterally. These are new since the prior study. Cardiac pacemaker and EKG leads noted. The cardiac silhouette is mildly enlarged. The remainder of th e mediastinal silhouette is unremarkable. The skeletal structures and soft tissues are negative for acute findings. IMPRESSION: Trace posterior bilateral pleural effusions.
[2018-09-28] MEDS ORDERED: HEPARIN SODIUM,PORCINE 5,000 UNIT/ML 1 ML VIAL IV PRN (21:51)
[2018-09-28] MEDS ORDERED: HEPARIN SODIUM,PORCINE 5,000 UNIT/ML 1 ML VIAL IV ONE (21:51)
[2018-09-28] MEDS ORDERED: HEPARIN SOD,PORK IN 0.45% NACL 25,000 UNIT in 0.45% NACL 1 250ML.BAG IV SCH (22:00)
[2018-09-28] MEDS: MORPHINE SULFATE 4 MG/ML SYRINGE IVP PRN (23:37)
[2018-09-29 03:31] VITALS: BP 145/90; PULSE 107; RESP 18
[2018-09-29] MEDS: MORPHINE SULFATE 4 MG/ML SYRINGE IVP PRN (03:43)
[2018-09-29 04:26] VITALS: TEMP 98.4
== END 2018-09-29 04:15 | disposition other institution (70) ==
LOC: EC 19:29
DX: I21.4 Non-ST elevation (NSTEMI) myocardial infarction (principal); I25.110 Atherosclerotic heart disease of native coronary artery with unstable angina pectoris; I25.2 Old myocardial infarction; J45.909 Unspecified asthma, uncomplicated; I11.0 Hypertensive heart disease with heart failure; I50.9 Heart failure, unspecified; E11.43 Type 2 diabetes mellitus with diabetic autonomic (poly)neuropathy; K31.84 Gastroparesis; E11.40 Type 2 diabetes mellitus with diabetic neuropathy, unspecified; E78.5 Hyperlipidemia, unspecified; Z79.02 Long term (current) use of antithrombotics/antiplatelets; Z79.82 Long term (current) use of aspirin; Z79.4 Long term (current) use of insulin; Z79.899 Other long term (current) drug therapy; Z88.1 Allergy status to other antibiotic agents; Z88.0 Allergy status to penicillin; Z88.5 Allergy status to narcotic agent; Z88.8 Allergy status to other drugs, medicaments and biological substances; Z91.013 Allergy to seafood; Z88.6 Allergy status to analgesic agent; Z91.041 Radiographic dye allergy status; Z95.5 Presence of coronary angioplasty implant and graft; Z95.810 Presence of automatic (implantable) cardiac defibrillator; Z86.73 Personal history of transient ischemic attack (TIA), and cerebral infarction without residual deficits; Z86.718 Personal history of other venous thrombosis and embolism
CPT/HCPCS: 36415 ×2; 93005; 83880; 80053; 83690; 83735; 84484 ×2; 85025; 85610; 85730; 71046; 99291; 96365; 96366 ×5; 96375; 96376 ×2; 96361 ×2; J2270 ×2; J1644 ×2

== ENCOUNTER 2018-10-31 19:19 | Emergency (ER) | payer MEDICARE, OTHER ==
[2018-10-31 19:36] VITALS: TEMP 98.9
[2018-10-31] MEDS ORDERED: MORPHINE SULFATE 4 MG/ML SYRINGE IVP STA ×2 (20:05→22:26)
[2018-10-31 20:20] LABS: Basophils % (A) 1 %; Eosinophils # (A) 0.1 k/uL (0-0.7); Eosinophils % (A) 3 %; HCT 35.8 % (39.0-53.0); HGB 11.8 gm/dL (13.0-17.5); Lymphocytes # (A) 0.9 k/uL (1.0-4.8); Lymphocytes % (A) 22 %; MCH 27.2 pg (25.0-35.0); MCHC 33.1 g/dL (31.0-37.0); MCV 82.3 fL (80.0-100.0); Monocytes # (A) 0.3 k/uL (0-1.0); Monocytes % (A) 7 %; Neutrophils # (A) 2.7 k/uL (1.3-7.7); Neutrophils % (A) 65 %; Platelet Count 218 k/uL (150-450); RBC 4.35 m/uL (4.30-5.90); WBC 4.2 k/uL (3.8-10.6)
[2018-10-31 20:27] LABS: Albumin 3.5 g/dL (3.5-5.0); Calcium 8.6 mg/dL (8.4-10.2); Magnesium 1.5 mg/dL (1.6-2.3); Potassium 3.9 mmol/L (3.5-5.1); Total Bilirubin 0.9 mg/dL (0.2-1.3)
--- NOTE | 2018-10-31 20:36 | XR ---
EXAMINATION TYPE: XR chest 2V DATE OF EXAM: 10/31/2018 COMPARISON: 09/28/2018 HISTORY: Asthma TECHNIQUE: Frontal and lateral views of the chest are obtained. FINDINGS: There is no heart failure nor confluent pneumonic infiltrate. There is a left axillary pac emaker. There are chest leads. Heart size is fairly normal. IMPRESSION: No active cardiac pulmonary disease. No change.
[2018-10-31 20:40] LABS: Prothrombin Time 10.7 sec (9.0-12.0)
[2018-10-31 20:43] LABS: Partial Thromboplastin Time 18.1 sec (22.0-30.0)
[2018-10-31] MEDS ORDERED: MAGNESIUM SULFATE-D5W PMX 1 GM in DEXTROSE/WATER 1 100ML.BAG IVPB ONE (20:50)
[2018-10-31] MEDS ORDERED: ASPIRIN 325 MG TAB PO STA (20:50)
--- NOTE | 2018-10-31 20:58 | ED ---
General Adult HPI - General Source: patient, RN notes reviewed, old records reviewed Mode of arrival: wheelchair Limitations: no limitations <Ayush Jackman - Last Filed: 10/31/18 20:52> <Radha Yanes - Last Filed: 11/01/18 01:55> - General Chief complaint: Chest Pain Stated complaint: Chest pain Time Seen by Provider: 10/31/18 19:26 - History of Present Illness Initial comments: 42-year-old male history of hypertension, diabetes, and coronary artery disease. Patient has significant cardiovascular disease, he has a. Chamber pacemaker. He's had recent heart catheterization with additional stent placement. He has several stents placed previously. He is on aspirin and Plavix. His been compliant with his medications. Presenting with central chest pain which began approximately one half hours prior to arrival. He's had some fatigue throughout the day today. He denies radiating symptoms. Denies nausea or diaphoresis. He is uncertain if this is similar to previous heart attacks in the past. (Ayush Jackman) - Related Data Home Medications Medication Instructions Recorded Confirmed Clopidogrel [Plavix] 75 mg PO QAM 12/03/17 10/31/18 Digoxin [Digitek] 125 mcg PO DAILY 02/01/18 10/31/18 Spironolactone [Aldactone] 25 mg PO DAILY 02/01/18 10/31/18 Albuterol Inhaler [Ventolin Hfa 2 puff INHALATION RT-Q6H PRN 04/01/18 10/31/18 Inhaler] Pantoprazole [Protonix] 40 mg PO DAILY 04/01/18 10/31/18 Primidone [Mysoline] 100 mg PO BID 04/01/18 10/31/18 Lisinopril [Zestril] 5 mg PO DAILY 06/06/18 10/31/18 Aspirin EC [Ecotrin Low Dose] 81 mg PO DAILY 07/20/18 10/31/18 Insulin Aspart [NovoLOG] 16 units SQ AC-TID 09/28/18 10/31/18 Insulin Glargine [Lantus] 35 unit SQ HS 09/28/18 10/31/18 Metoprolol Succinate [Toprol XL] 25 mg PO DAILY 09/28/18 10/31/18 Rosuvastatin Calcium [Crestor] 40 mg PO DAILY 09/28/18 10/31/18 Isosorbide Mononitrate [Imdur] 120 mg PO DAILY 10/31/18 10/31/18 Torsemide [Demadex] 20 mg PO BID 10/31/18 10/31/18 Previous Rx's Medication Instructions Recorded Nitroglycerin Sl Tabs [Nitrostat] 0.4 mg SUBLINGUAL Q5M PRN tab 04/09/18 DULoxetine HCL [Cymbalta] 60 mg PO BID capsule. 05/10/18 Allergies Allergy/AdvReac Type Severity Reaction Status Date / Time erythromycin base Allergy Severe Rash/Hives Verified 10/31/18 20:45 [Erythromycin Base] cephalexin monohydrate Allergy Unknown Rash/Hives Verified 10/31/18 20:45 [From Keflex] codeine Allergy Unknown Unknown Verified 10/31/18 20:45 meclizine Allergy Unknown Unknown Verified 10/31/18 20:45 Penicillins Allergy Unknown Rash/Hives Verified 10/31/18 20:45 shellfish derived Allergy Unknown Anaphylaxis Verified 10/31/18 20:45 Fish Containing Products Allergy Anaphylaxis Verified 10/31/18 20:45 [Fish] Iodinated Contrast- Oral and Allergy Anaphylaxis Verified 10/31/18 20:45 IV Dye naproxen AdvReac Unknown Compromises Verified 10/31/18 20:45 Kidney Function atorvastatin calcium AdvReac Myalgia Verified 10/31/18 20:45 [From Lipitor] hydrocodone [From [place]] AdvReac Rapid Verified 10/31/18 20:45 Heart Rate Review of Systems ROS Other: All systems not noted in ROS Statement are negative. <Ayush Jackman - Last Filed: 10/31/18 20:52> ROS Other: All systems not noted in ROS Statement are negative. <Radha Yanes - Last Filed: 11/01/18 01:55> ROS Statement: Those systems with pertinent positive or pertinent negative responses have been documented in the HPI. Past Medical History Past Medical History: Asthma, Coronary Artery Disease (CAD), Chest Pain / Angina, Heart Failure, CVA/TIA, Diabetes Mellitus, Deep Vein Thrombosis (DVT), GERD/Reflux, Hyperlipidemia, Hypertension, Myocardial Infarction (RI), Osteoarthritis (OA), Pneumonia, Skin Disorder, Sleep Apnea/CPAP/BIPAP Additional Past Medical History / Comment(s): multiple vessel CAD, ischemic cardiomyopathy, diabetic neuropathy bilateral hands and feet, hypertensive cardiovascular disease, SHELIA with no device, chronic gastritis, degenerative disc disease, chronic back pain, depression with hx of suicide attempts, gastroparesis, psoriasis, UTI, migraines, TIA, PUD, hiatal hernia, L rotator cuff tear, bronchitis, pseudoaneurysm L groin post procedure. 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 Date of Last Stent Placement:: 10/2017 Type of Cardiac Device: Biventricular Pacemaker, AICD Device Placement Date:: 09/19/15 Past Psychological History: Anxiety, Depression, PTSD Smoking Status: Never smoker Past Alcohol Use History: None Reported Past Drug Use History: None Reported - Past Family History Mother Family Medical History: Coronary Artery Disease (CAD), Myocardial Infarction (RI) Additional Family Medical History / Comment(s): 7 RI and faulty heart valve. Pt does not know the age when mother had her RI's. Father History Unknown: Yes Additional Family Medical History / Comment(s): Does not know who father is. Brother(s) Family Medical History: Cancer, Congestive Heart Failure (CHF), Myocardial Infarction (RI) Additional Family Medical History / Comment(s): Parkinsons. Pt does not know at what age his brother had an RI. Patient's other brother has lung CA Patient has Family Medical History: No Reported History Additional Family Medical History / Comment(s): There is a strong family history for heart disease, hypertension, and diabetes. <Helmreich,Ayush N - Last Filed: 10/31/18 20:52> General Exam Limitations: no limitations General appearance: alert Head exam: Present: atraumatic, normocephalic Eye exam: Present: normal appearance, PERRL ENT exam: Present: normal exam Neck exam: Present: normal inspection. Absent: tenderness, meningismus Respiratory exam: Present: normal lung sounds bilaterally. Absent: respiratory distress, wheezes, rales Cardiovascular Exam: Present: regular rate, normal rhythm GI/Abdominal exam: Present: soft. Absent: distended, tenderness, guarding, rebound Extremities exam: Present: normal inspection, normal capillary refill. Absent: pedal edema Neurological exam: Present: alert, oriented X3, CN II-XII intact. Absent: motor sensory deficit Psychiatric exam: Present: normal affect, normal mood Skin exam: Present: warm, dry, intact, pallor. Absent: cyanosis, diaphoretic <KirkikeAyush N - Last Filed: 10/31/18 20:52> Course <TamaramarcosAyush N - Last Filed: 10/31/18 20:52> <Radha Yanes P - Last Filed: 11/01/18 01:55> Vital Signs 10/31/18 10/31/18 10/31/18 19:33 20:30 21:00 Temperature 98.9 F Pulse Rate 84 88 97 Respiratory 18 24 23 Rate Blood Pressure 117/74 127/71 123/78 O2 Sat by Pulse 97 94 L 93 L Oximetry 10/31/18 10/31/18 10/31/18 21:30 22:00 22:30 Temperature Pulse Rate 90 89 93 Respiratory 16 17 19 Rate Blood Pressure 122/74 117/74 134/74 O2 Sat by Pulse 94 L 94 L 96 Oximetry 10/31/18 10/31/18 11/01/18 23:00 23:30 00:00 Temperature Pulse Rate 85 85 96 Respiratory 17 16 14 Rate Blood Pressure 134/74 125/78 117/76 O2 Sat by Pulse 96 96 96 Oximetry 11/01/18 11/01/18 11/01/18 00:30 01:00 01:30 Temperature Pulse Rate 89 92 92 Respiratory 18 15 15 Rate Blood Pressure 135/91 136/90 122/84 O2 Sat by Pulse 96 95 96 Oximetry - Reevaluation(s) Reevaluation #1: 10/31/18 2100 Patient's care will be signed out to Dr. Yanes at shift change awaiting cardiac enzymes. 10/31/18 20:58 (Ayush Jackman) Reevaluation #2: Patient reports continuous chest pain, patient not comfortable with discharge home, would like to be sent back to [facility] for re-evaluation 11/01/18 00:11 (Radha Yanes) EKG Findings - EKG Comments: EKG Findings:: EKG: Atrial sensed ventricular paced rhythm, rate of 94, SD interval 190, QRS duration 88, QTC 425, no ST segment elevation, similar compared to previous EKGs, there is some ST segment changes in the inferior leads. <Ayush Jackman - Last Filed: 10/31/18 20:52> Medical Decision Making - Lab Data Result diagrams: 10/31/18 19:55 10/31/18 19:55 <Ayush Jackman - Last Filed: 10/31/18 20:52> - Lab Data Result diagrams: 10/31/18 19:55 10/31/18 19:55 <Radha Yanes - Last Filed: 11/01/18 01:55> - Medical Decision Making Patient care signed out to me by Dr. Jackman, patient with extensive cardiac history, cath and stent at [facility] last week. Patient presented to the ER today with chest pain, initial troponin was negative, however patient had persistent pain. Repeat troponin was uptrending, patient with continuous pain despite repeat doses of morphine. Patient requesting transfer back to [facility]. Patient states that he is being evaluated for possible CABG and believes if he is transferred back it will expedite that and he will no longer have chest pain. Patient care was discussed with transfer team and Dr. Baxter who accepts the transfer. (Radha Yanes) - Lab Data Lab Results 10/31/18 10/31/18 10/31/18 Range/Units 19:55 19:55 19:55 WBC 4.2 (3.8-10.6) k/uL RBC 4.35 (4.30-5.90) m/uL Hgb 11.8 L (13.0-17.5) gm/dL Hct 35.8 L (39.0-53.0) % MCV 82.3 (80.0-100.0) fL MCH 27.2 (25.0-35.0) pg MCHC 33.1 (31.0-37.0) g/dL RDW 15.0 (11.5-15.5) % Plt Count 218 (150-450) k/uL Neutrophils % 65 % Lymphocytes % 22 % Monocytes % 7 % Eosinophils % 3 % Basophils % 1 % Neutrophils # 2.7 (1.3-7.7) k/uL Lymphocytes # 0.9 L (1.0-4.8) k/uL Monocytes # 0.3 (0-1.0) k/uL Eosinophils # 0.1 (0-0.7) k/uL Basophils # 0.0 (0-0.2) k/uL PT 10.7 (9.0-12.0) sec INR 1.0 (<1.2) APTT 18.1 L (22.0-30.0) sec Sodium 131 L (137-145) mmol/L Potassium 3.9 (3.5-5.1) mmol/L Chloride 93 L (98-107) mmol/L Carbon Dioxide 28 (22-30) mmol/L Anion Gap 10 mmol/L BUN 31 H (9-20) mg/dL Creatinine 1.44 H (0.66-1.25) mg/dL Est GFR (CKD-EPI)AfAm 69 (>60 ml/min/1.73 sqM) Est GFR (CKD-EPI)NonAf 59 (>60 ml/min/1.73 sqM) Glucose 429 H (74-99) mg/dL Calcium 8.6 (8.4-10.2) mg/dL Magnesium 1.5 L (1.6-2.3) mg/dL Total Bilirubin 0.9 (0.2-1.3) mg/dL AST 34 (17-59) U/L ALT 105 H (21-72) U/L Alkaline Phosphatase 181 H (38-126) U/L Troponin I (0.000-0.034) ng/mL Total Protein 6.0 L (6.3-8.2) g/dL Albumin 3.5 (3.5-5.0) g/dL 10/31/18 10/31/18 Range/Units 19:55 22:22 WBC (3.8-10.6) k/uL RBC (4.30-5.90) m/uL Hgb (13.0-17.5) gm/dL Hct (39.0-53.0) % MCV (80.0-100.0) fL MCH (25.0-35.0) pg MCHC (31.0-37.0) g/dL RDW (11.5-15.5) % Plt Count (150-450) k/uL Neutrophils % % Lymphocytes % % Monocytes % % Eosinophils % % Basophils % % Neutrophils # (1.3-7.7) k/uL Lymphocytes # (1.0-4.8) k/uL Monocytes # (0-1.0) k/uL Eosinophils # (0-0.7) k/uL Basophils # (0-0.2) k/uL PT (9.0-12.0) sec INR (<1.2) APTT (22.0-30.0) sec Sodium (137-145) mmol/L Potassium (3.5-5.1) mmol/L Chloride (98-107) mmol/L Carbon Dioxide (22-30) mmol/L Anion Gap mmol/L BUN (9-20) mg/dL Creatinine (0.66-1.25) mg/dL Est GFR (CKD-EPI)AfAm (>60 ml/min/1.73 sqM) Est GFR (CKD-EPI)NonAf (>60 ml/min/1.73 sqM) Glucose (74-99) mg/dL Calcium (8.4-10.2) mg/dL Magnesium (1.6-2.3) mg/dL Total Bilirubin (0.2-1.3) mg/dL AST (17-59) U/L ALT (21-72) U/L Alkaline Phosphatase (38-126) U/L Troponin I 0.027 0.032 (0.000-0.034) ng/mL Total Protein (6.3-8.2) g/dL Albumin (3.5-5.0) g/dL Disposition <Ayush Jackman - Last Filed: 10/31/18 20:52> - Out of Hospital Transfer - Req. Specs Out of Hospital Transfer - Requested Specifics: Telemetry Unit (-[place]) <Radha Yanes - Last Filed: 11/01/18 01:55> Clinical Impression: Chest pain Disposition: OTHER INSTITUTION NOT DEFINED Condition: Stable Referrals: Junie New MD [Primary Care Provider] - 1-2 days
[2018-11-01 01:44] VITALS: BP 122/84; PULSE 92; RESP 15
== END 2018-11-01 01:44 | disposition other institution (70) ==
LOC: EC 19:19
DX: R07.9 Chest pain, unspecified (principal); I25.119 Atherosclerotic heart disease of native coronary artery with unspecified angina pectoris; J45.909 Unspecified asthma, uncomplicated; I11.0 Hypertensive heart disease with heart failure; I50.9 Heart failure, unspecified; K21.9 Gastro-esophageal reflux disease without esophagitis; E78.5 Hyperlipidemia, unspecified; E11.40 Type 2 diabetes mellitus with diabetic neuropathy, unspecified; G47.30 Sleep apnea, unspecified; E11.43 Type 2 diabetes mellitus with diabetic autonomic (poly)neuropathy; K31.84 Gastroparesis; I25.2 Old myocardial infarction; Z79.82 Long term (current) use of aspirin; Z79.02 Long term (current) use of antithrombotics/antiplatelets; Z79.4 Long term (current) use of insulin; Z79.899 Other long term (current) drug therapy; Z88.0 Allergy status to penicillin; Z88.1 Allergy status to other antibiotic agents; Z88.5 Allergy status to narcotic agent; Z91.013 Allergy to seafood; Z91.041 Radiographic dye allergy status; Z88.8 Allergy status to other drugs, medicaments and biological substances; Z88.6 Allergy status to analgesic agent; Z95.5 Presence of coronary angioplasty implant and graft; Z95.0 Presence of cardiac pacemaker
CPT/HCPCS: 36415; 93005; 80053; 83735; 84484; 85025; 85610; 85730; 71046; 99285; 96365; 96366; 96375; 96376; J2270; J3475

== ENCOUNTER 2018-11-06 05:32 | Emergency (ER) | payer MEDICARE, OTHER ==
[2018-11-06 05:40] VITALS: RESP 18; TEMP 98.2
--- NOTE | 2018-11-06 06:26 | XR ---
EXAM: XR Chest, 2 Views CLINICAL HISTORY: Chest Pain TECHNIQUE: Frontal and lateral views of the chest. COMPARISON: 09/19/2018. FINDINGS: Lungs: Mild pulmonary vascular congestion/pulmonary edema, more conspicuous on this study than the prior. Peribronchial cuffing is likely reactive to these findings. Infectious versus inflammatory airways disease would be included in the differential. Pleural space: No pleural effusions. No pneumothorax. Heart: Stable heart size. Mediastinum: Essentially unchanged. Bones/joints: Essentially unchanged. Tubes, lines and devices: Left-sided chest wall pacemaker and lead tips are unchanged. IMPRESSION: 1. Mild pulmonary vascular congestion/pulmonary edema, more conspicuous on this study than the prior. 2. Peribronchial cuffing is likely reactive to these findings. Infectious versus inflammatory airways disease would be included in the differential.
[2018-11-06 06:32] LABS: Anisocytosis Slight; Basophils # (A) 0.1 k/uL (0-0.2); Basophils % (A) 1 %; Eosinophils # (A) 0.1 k/uL (0-0.7); Eosinophils % (A) 2 %; HCT 38.1 % (39.0-53.0); HGB 12.1 gm/dL (13.0-17.5); Hypochromasia Moderate; Lymphocytes % (A) 17 %; MCH 26.8 pg (25.0-35.0); MCHC 31.8 g/dL (31.0-37.0); MCV 84.1 fL (80.0-100.0); Mean Platelet Volume 7.7; Monocytes # (A) 0.3 k/uL (0-1.0); Monocytes % (A) 5 %; Neutrophils # (A) 4.3 k/uL (1.3-7.7); Neutrophils % (A) 73 %; Platelet Count 254 k/uL (150-450); Poikilocytosis Slight; RBC 4.53 m/uL (4.30-5.90); RDW 16.1 % (11.5-15.5); WBC 5.9 k/uL (3.8-10.6)
--- NOTE | 2018-11-06 06:32 | ED ---
Chest Pain HPI <AkbarAyush - Last Filed: 11/06/18 10:33> - General Source: patient, EMS Mode of arrival: EMS Limitations: no limitations <Radha Yanes - Last Filed: 11/06/18 21:42> - General Chief Complaint: Chest Pain Stated Complaint: Chest Pain Time Seen by Provider: 11/06/18 05:33 - History of Present Illness Initial Comments: Ti a 42-year-old gentleman with extensive past medical history most significant for known coronary artery disease for which she has been thoroughly evaluated, most recently had a cardiac cath approximately 3 weeks ago subsequent episodes of chest pain resulted in him being readmitted to [facility] for reevaluation. Patient was discharged for hospital in November 04. Patient reports that throughout the day on the date the he slept all day and didn't take any of his home medications. He woke from sleep this morning with chest pain and immediately came to the emergency department. Patient reports that he take aspirin in route to the hospital with some improvement in his chest pain. Patient also notes that his glucose was in the 500s because he hasn't had any medications since . (Radha Yanes) - Related Data Home Medications Medication Instructions Recorded Confirmed Clopidogrel [Plavix] 75 mg PO QAM 12/03/17 11/06/18 Digoxin [Digitek] 125 mcg PO DAILY 02/01/18 11/06/18 Spironolactone [Aldactone] 25 mg PO DAILY 02/01/18 11/06/18 Albuterol Inhaler [Ventolin Hfa 2 puff INHALATION RT-Q6H PRN 04/01/18 11/06/18 Inhaler] Pantoprazole [Protonix] 40 mg PO DAILY 04/01/18 11/06/18 Primidone [Mysoline] 100 mg PO BID 04/01/18 11/06/18 Lisinopril [Zestril] 5 mg PO DAILY 06/06/18 11/06/18 Aspirin EC [Ecotrin Low Dose] 81 mg PO DAILY 07/20/18 11/06/18 Insulin Aspart [NovoLOG] 16 units SQ AC-TID 09/28/18 11/06/18 Insulin Glargine [Lantus] 45 unit SQ HS 09/28/18 11/06/18 Rosuvastatin Calcium [Crestor] 40 mg PO DAILY 09/28/18 11/06/18 Isosorbide Mononitrate [Imdur] 120 mg PO DAILY 10/31/18 11/06/18 Torsemide [Demadex] 20 mg PO BID 10/31/18 11/06/18 Carvedilol [Coreg] 6.25 mg PO BID 11/06/18 11/06/18 Ranolazine [Ranexa] 500 mg PO BID 11/06/18 11/06/18 Previous Rx's Medication Instructions Recorded DULoxetine HCL [Cymbalta] 60 mg PO BID capsule. 05/10/18 Allergies Allergy/AdvReac Type Severity Reaction Status Date / Time erythromycin base Allergy Severe Rash/Hives Verified 11/06/18 08:13 [Erythromycin Base] cephalexin monohydrate Allergy Unknown Rash/Hives Verified 11/06/18 08:13 [From Keflex] codeine Allergy Unknown Unknown Verified 11/06/18 08:13 meclizine Allergy Unknown Unknown Verified 11/06/18 08:13 Penicillins Allergy Unknown Rash/Hives Verified 11/06/18 08:13 shellfish derived Allergy Unknown Anaphylaxis Verified 11/06/18 08:13 Fish Containing Products Allergy Anaphylaxis Verified 11/06/18 08:13 [Fish] Iodinated Contrast- Oral and Allergy Anaphylaxis Verified 11/06/18 08:13 IV Dye naproxen AdvReac Unknown Compromises Verified 11/06/18 08:13 Kidney Function atorvastatin calcium AdvReac Myalgia Verified 11/06/18 08:13 [From Lipitor] hydrocodone [From [place]] AdvReac Rapid Verified 11/06/18 08:13 Heart Rate Review of Systems ROS Other: All systems not noted in ROS Statement are negative. <Ayush Webber - Last Filed: 11/06/18 10:33> ROS Other: All systems not noted in ROS Statement are negative. <Radha Yanes - Last Filed: 11/06/18 21:42> ROS Statement: Those systems with pertinent positive or pertinent negative responses have been documented in the HPI. EKG Findings - EKG Comments: EKG Findings:: EKG was obtained for evaluation of chest pain, EKG obtained at 5:41 AM, rate is 110 rhythm is ventricularly paced, WI 168, QRS 96, QTC 443. There are no acute ST elevations or depressions no evidence of acute ischemia or infarction when compared to previous EKG there is no change from EKG obtained on October 31. <Walter Yanesssjennifer Roland - Last Filed: 11/06/18 21:42> Past Medical History Past Medical History: Asthma, Coronary Artery Disease (CAD), Chest Pain / Angina, Heart Failure, CVA/TIA, Diabetes Mellitus, Deep Vein Thrombosis (DVT), GERD/Reflux, Hyperlipidemia, Hypertension, Myocardial Infarction (TN), Osteoarthritis (OA), Pneumonia, Skin Disorder, Sleep Apnea/CPAP/BIPAP Additional Past Medical History / Comment(s): multiple vessel CAD, ischemic cardiomyopathy, diabetic neuropathy bilateral hands and feet, hypertensive cardiovascular disease, SHELIA with no device, chronic gastritis, degenerative disc disease, chronic back pain, depression with hx of suicide attempts, gastroparesis, psoriasis, UTI, migraines, TIA, PUD, hiatal hernia, L rotator cuff tear, bronchitis, pseudoaneurysm L groin post procedure. 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 Last Myocardial Infarction Date:: October 2017 History of Any Multi-Drug Resistant Organisms: MRSA Date of last positivie culture/infection: 11/05/2017 (Culture done at [facility]) MDRO Source:: legs Past Surgical History: AICD, Appendectomy, Cholecystectomy, Heart Catheterization With Stent, Hernia Repair Additional Past Surgical History / Comment(s): Pt has had multiple cardiac procedures- caths/stents/PTCA, last stent placed at 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 Date of Last Stent Placement:: 10/2017 Type of Cardiac Device: Biventricular Pacemaker, AICD Device Placement Date:: 09/19/15 Past Psychological History: Anxiety, Depression, PTSD Smoking Status: Never smoker Past Alcohol Use History: None Reported Past Drug Use History: None Reported - Past Family History Mother Family Medical History: Coronary Artery Disease (CAD), Myocardial Infarction (TN) Additional Family Medical History / Comment(s): 7 TN and faulty heart valve. Pt does not know the age when mother had her TN's. Father History Unknown: Yes Additional Family Medical History / Comment(s): Does not know who father is. Brother(s) Family Medical History: Cancer, Congestive Heart Failure (CHF), Myocardial Infarction (TN) Additional Family Medical History / Comment(s): Parkinsons. Pt does not know at what age his brother had an TN. Patient's other brother has lung CA Patient has Family Medical History: No Reported History Additional Family Medical History / Comment(s): There is a strong family history for heart disease, hypertension, and diabetes. <Radha Yanes - Last Filed: 11/06/18 21:42> General Exam Limitations: no limitations <Radha Yanes - Last Filed: 11/06/18 21:42> - General Exam Comments Initial Comments: Physical Exam GENERAL: Chronically ill appearing HENT: Normocephalic, Atraumatic. EYES: PERRL, EOMI PULMONARY: Unlabored respirations. CARDIOVASCULAR: Tachycardic, regular, warm and well perfused extremities ABDOMEN: Soft and nontender with normal bowel sounds. SKIN: Multiple tattoos, multiple bruises on the extremities from previous IV attempts : Deferred NEUROLOGIC: Patient is alert and oriented x3. Moving all extremities spontaneously MUSCULOSKELETAL: Normal extremities with adequate strength and full range of motion. No lower extremity swelling or edema. No calf tenderness. PSYCHIATRIC: Situational anxiety (Radha Yanes) Course <Ayush Webber - Last Filed: 11/06/18 10:33> Vital Signs 11/06/18 11/06/18 11/06/18 05:36 07:09 08:30 Temperature 98.2 F Pulse Rate 111 H 104 H 96 Respiratory 18 18 18 Rate Blood Pressure 133/96 134/94 136/92 O2 Sat by Pulse 97 97 96 Oximetry 11/06/18 10:55 Temperature Pulse Rate 95 Respiratory 18 Rate Blood Pressure 142/97 O2 Sat by Pulse 96 Oximetry - Reevaluation(s) Reevaluation #1: 11/06/18 10:33 Patient rested comfortably throughout the morning the troponins are within normal limits patient's blood sugar has responded to nicely he'll be discharged with follow-up with his doctor return when necessary (Ayush Webber) Chest Pain MDM <Radha Ynaes - Last Filed: 11/06/18 21:42> - [facility] The patient was seen and evaluated, this is a 42-year-old male very well-known to the ER for his frequent visits for chest pain, patient has underwent evaluation recently with cardiac stenting. Patient was subsequently hospitalized before for reevaluation. Patient reports original workup done du ring that evaluation he was discharged home. Patient has been noncompliant with his home medications due to sleeping throughout the day he woke with chest pain and immediately came to the ER. Upon reevaluation the patient sleeping comfortably. (Radha Yanes) Disposition Is patient prescribed a controlled substance at d/c from ED?: No <Ayush Webber - Last Filed: 11/06/18 10:33> <Radha Yanes - Last Filed: 11/06/18 21:42> Clinical Impression: Chest pain, Hyperglycemia due to type 1 diabetes mellitus, Non-compliance Disposition: HOME SELF-CARE Condition: Good Instructions (If sedation given, give patient instructions): Chest Pain (ED), Diabetic Hyperglycemia (ED), Diabetes and Exercise (ED) Referrals: Junie New MD [Primary Care Provider] - 1-2 days
[2018-11-06 06:58] LABS: Prothrombin Time 10.6 sec (9.0-12.0)
[2018-11-06 06:59] LABS: Partial Thromboplastin Time 22.6 sec (22.0-30.0)
[2018-11-06 07:07] LABS: Glucose,Whole Blood 510 mg/dL (75-99)
[2018-11-06 07:18] LABS: ALT 23 U/L (21-72); AST 15 U/L (17-59); African American GFR (CKD) >90 (>60 ml/min/1.73 sqM); Albumin 3.3 g/dL (3.5-5.0); Alkaline Phosphatase 140 U/L (38-126); Anion Gap 10 mmol/L; Blood Urea Nitrogen 17 mg/dL (9-20); Calcium 8.8 mg/dL (8.4-10.2); Carbon Dioxide 23 mmol/L (22-30); Chloride 100 mmol/L (98-107); Magnesium 1.7 mg/dL (1.6-2.3); Potassium 4.1 mmol/L (3.5-5.1); Sodium 133 mmol/L (137-145); Total Bilirubin 0.7 mg/dL (0.2-1.3); Total Protein 5.7 g/dL (6.3-8.2)
[2018-11-06 07:26] LABS: Glucose 578 mg/dL (74-99)
[2018-11-06] MEDS ORDERED: INSULIN ASPART (NovoLOG) 100 UNIT/ML VIAL SQ SCH (07:30)
[2018-11-06 08:51] LABS: Glucose,Whole Blood 445 mg/dL (75-99)
[2018-11-06] MEDS ORDERED: INSULIN ASPART (NovoLOG) 100 UNIT/ML VIAL SQ ONE (09:36)
[2018-11-06 09:52] LABS: Glucose,Whole Blood 388 mg/dL (75-99)
[2018-11-06 10:56] VITALS: BP 142/97; PULSE 95
[2018-11-06 11:18] LABS: Glucose,Whole Blood 345 mg/dL (75-99)
== END 2018-11-06 10:55 | disposition home or self-care (01) ==
LOC: EC 05:32
DX: E10.65 Type 1 diabetes mellitus with hyperglycemia (principal); R07.9 Chest pain, unspecified; Z91.14 Patient's other noncompliance with medication regimen; F41.8 Other specified anxiety disorders; R00.0 Tachycardia, unspecified; R58 Hemorrhage, not elsewhere classified; L81.8 Other specified disorders of pigmentation; J45.909 Unspecified asthma, uncomplicated; I25.119 Atherosclerotic heart disease of native coronary artery with unspecified angina pectoris; I11.0 Hypertensive heart disease with heart failure; I50.9 Heart failure, unspecified; E10.42 Type 1 diabetes mellitus with diabetic polyneuropathy; K21.9 Gastro-esophageal reflux disease without esophagitis; E78.5 Hyperlipidemia, unspecified; I25.2 Old myocardial infarction; M19.90 Unspecified osteoarthritis, unspecified site; E10.43 Type 1 diabetes mellitus with diabetic autonomic (poly)neuropathy; K31.84 Gastroparesis; Z88.0 Allergy status to penicillin; Z88.1 Allergy status to other antibiotic agents; Z88.5 Allergy status to narcotic agent; Z88.6 Allergy status to analgesic agent; Z88.8 Allergy status to other drugs, medicaments and biological substances; Z91.013 Allergy to seafood; Z91.041 Radiographic dye allergy status; Z95.5 Presence of coronary angioplasty implant and graft; Z79.02 Long term (current) use of antithrombotics/antiplatelets; Z79.4 Long term (current) use of insulin; Z79.82 Long term (current) use of aspirin; Z79.899 Other long term (current) drug therapy; Z86.73 Personal history of transient ischemic attack (TIA), and cerebral infarction without residual deficits; Z86.718 Personal history of other venous thrombosis and embolism; Z95.0 Presence of cardiac pacemaker; Z86.14 Personal history of Methicillin resistant Staphylococcus aureus infection; Z83.3 Family history of diabetes mellitus; Z82.49 Family history of ischemic heart disease and other diseases of the circulatory system
CPT/HCPCS: 36415; 71046; 80053; 83735; 83880; 84484; 85025; 85610; 85730; 93005; 99285

== ENCOUNTER 2018-11-08 10:24 | Inpatient (IN) | payer MEDICARE, OTHER ==
--- NOTE | 2018-11-08 10:51 | ED ---
General Adult HPI - General Chief complaint: Chest Pain Stated complaint: Chest Pain Time Seen by Provider: 11/08/18 10:27 Source: patient, EMS, RN notes reviewed Mode of arrival: EMS Limitations: no limitations - History of Present Illness Initial comments: 42-year-old male with significant coronary artery disease presents for evaluation of chest pain and dyspnea. Patient was seen at his primary care office this morning, noted to have a pulse ox in the 70s, low blood pressure. He was sent to the emergency department for evaluation. He had been seen at an outside emergency department earlier in the day for evaluations of chest pain. He had recent admission to [facility] recurrently falls for cardiology. Basically this patient has no other options in terms of intervention for his coronary artery disease. He is on maximal medical management and continues to have chest pain. - Related Data Home Medications Medication Instructions Recorded Confirmed Clopidogrel [Plavix] 75 mg PO QAM 12/03/17 11/08/18 Digoxin [Digitek] 125 mcg PO DAILY 02/01/18 11/08/18 Spironolactone [Aldactone] 25 mg PO DAILY 02/01/18 11/08/18 Albuterol Inhaler [Ventolin Hfa 2 puff INHALATION RT-Q6H PRN 04/01/18 11/08/18 Inhaler] Pantoprazole [Protonix] 40 mg PO DAILY 04/01/18 11/08/18 Primidone [Mysoline] 100 mg PO BID 04/01/18 11/08/18 Lisinopril [Zestril] 5 mg PO DAILY 06/06/18 11/08/18 Aspirin EC [Ecotrin Low Dose] 81 mg PO DAILY 07/20/18 11/08/18 Rosuvastatin Calcium [Crestor] 40 mg PO DAILY 09/28/18 11/08/18 Isosorbide Mononitrate [Imdur] 120 mg PO DAILY 10/31/18 11/08/18 Torsemide [Demadex] 20 mg PO BID 10/31/18 11/08/18 Carvedilol [Coreg] 6.25 mg PO BID 11/06/18 11/08/18 Ranolazine [Ranexa] 500 mg PO BID 11/06/18 11/08/18 Insulin Aspart [NovoLOG Flexpen] 16 units SQ AC-TID 11/08/18 11/08/18 Insulin Glargine,Hum.rec.anlog 50 unit SQ HS 11/08/18 11/08/18 [Basaglar Kwikpen U-100] Metoprolol Tartrate [Lopressor] 50 mg PO BID 11/08/18 11/08/18 Nitroglycerin Sl Tabs [Nitrostat] 0.4 mg SUBLINGUAL Q5M PRN 11/08/18 11/08/18 Tamsulosin HCl [Flomax] 0.4 mg PO DAILY 11/08/18 11/08/18 Previous Rx's Medication Instructions Recorded DULoxetine HCL [Cymbalta] 60 mg PO BID capsule. 05/10/18 Allergies Allergy/AdvReac Type Severity Reaction Status Date / Time erythromycin base Allergy Severe Rash/Hives Verified 11/08/18 10:59 [Erythromycin Base] cephalexin monohydrate Allergy Unknown Rash/Hives Verified 11/08/18 10:59 [From Keflex] codeine Allergy Unknown Unknown Verified 11/08/18 10:59 meclizine Allergy Unknown Unknown Verified 11/08/18 10:59 Penicillins Allergy Unknown Rash/Hives Verified 11/08/18 10:59 shellfish derived Allergy Unknown Anaphylaxis Verified 11/08/18 10:59 Fish Containing Products Allergy Anaphylaxis Verified 11/08/18 10:59 [Fish] Iodinated Contrast- Oral and Allergy Anaphylaxis Verified 11/08/18 10:59 IV Dye naproxen AdvReac Unknown Compromises Verified 11/08/18 10:59 Kidney Function atorvastatin calcium AdvReac Myalgia Verified 11/08/18 10:59 [From Lipitor] hydrocodone [From [place]] AdvReac Rapid Verified 11/08/18 10:59 Heart Rate Review of Systems ROS Statement: Those systems with pertinent positive or pertinent negative responses have been documented in the HPI. ROS Other: All systems not noted in ROS Statement are negative. Past Medical History Past Medical History: Asthma, Coronary Artery Disease (CAD), Chest Pain / Angina, Heart Failure, CVA/TIA, Diabetes Mellitus, Deep Vein Thrombosis (DVT), GERD/Reflux, Hyperlipidemia, Hypertension, Myocardial Infarction (CA), Oste oarthritis (OA), Pneumonia, Skin Disorder, Sleep Apnea/CPAP/BIPAP Additional Past Medical History / Comment(s): multiple vessel CAD, ischemic cardiomyopathy, diabetic neuropathy bilateral hands and feet, hypertensive cardiovascular disease, SHELIA with no device, chronic gastritis, degenerative disc disease, chronic back pain, depression with hx of suicide attempts, gastropar esis, psoriasis, UTI, migraines, TIA, PUD, hiatal hernia, L rotator cuff tear, bronchitis, pseudoaneurysm L groin post procedure. 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 Date of Last Stent Placement:: 10/2017 Type of Cardiac Device: Biventricular Pacemaker, AICD Device Placement Date:: 09/19/15 Past Psychological History: Anxiety, Depression, PTSD Smoking Status: Never smoker Past Alcohol Use History: None Reported Past Drug Use History: None Reported - Past Family History Mother Family Medical History: Coronary Artery Disease (CAD), Myocardial Infarction (CA) Additional Family Medical History / Comment(s): 7 CA and faulty heart valve. Pt does not know the age when mother had her CA's. Father History Unknown: Yes Additional Family Medical History / Comment(s): Does not know who father is. Brother(s) Family Medical History: Cancer, Congestive Heart Failure (CHF), Myocardial Infarction (CA) Additional Family Medical History / Comment(s): Parkinsons. Pt does not know at what age his brother had an CA. Patient's other brother has lung CA Patient has Family Medical History: No Reported History Additional Family Medical History / Comment(s): There is a strong family history for heart disease, hypertension, and diabetes. General Exam Limitations: no limitations General appearance: lethargic Head exam: Present: atraumatic, normocephalic Eye exam: Present: normal appearance, PERRL ENT exam: Present: mucous membranes dry Neck exam: Present: normal inspection. Absent: tenderness Respiratory exam: Present: respiratory distress, rales Cardiovascular Exam: Present: regular rate, normal rhythm GI/Abdominal exam: Present: soft, distended. Absent: tenderness, guarding Extremities exam: Present: pedal edema Neurological exam: Present: alert Psychiatric exam: Present: depressed. Absent: suicidal ideation Skin exam: Present: warm, pallor Course Vital Signs 11/08/18 11/08/18 11/08/18 10:25 10:30 10:40 Temperature Pulse Rate 57 L 59 L 57 L Respiratory 25 H 18 18 Rate Blood Pressure 80/55 88/59 80/55 O2 Sat by Pulse 100 100 100 Oximetry 11/08/18 11/08/18 11/08/18 10:50 11:00 11:10 Temperature Pulse Rate 57 L 58 L 57 L Respiratory 18 12 11 L Rate Blood Pressure 69/54 85/46 79/57 O2 Sat by Pulse 100 100 100 Oximetry 11/08/18 11/08/18 11/08/18 11:15 11:30 11:34 Temperature Pulse Rate 57 L 57 L 58 L Respiratory 12 24 18 Rate Blood Pressure 79/57 79/60 82/55 O2 Sat by Pulse 100 100 100 Oximetry 11/08/18 12:59 Temperature 97.4 F L Pulse Rate 58 L Respiratory 18 Rate Blood Pressure 84/61 O2 Sat by Pulse 100 Oximetry EKG Findings - EKG Comments: EKG Findings:: EKG: Atrial sensed ventricular paced rhythm, rate of 58, IN interval 186, QRS duration 92, QTC 412, no ST segment elevation Medical Decision Making - Medical Decision Making 42-year-old male with significant medical problems presenting with dyspnea, hypoxia, fluid overload. Blood pressure is marginal. EKG is paced rhythm. He has a chest x-ray consistent with congestive heart failure. He has not trending creatinine, elevated troponin which is chronic for this patient. He has a BNP at 3000. He is given IV diuresis in hopes to improve blood pressure. His blood pressure does respond, however he has minimal urine output. I did discuss this case with Dr. Gallagher, who will admit the patient. Patient does follow with cardiology at [facility] however they had nothing more to offer this patient. Patient does not want to be transferred, he is agreeable to be admitted to this institution. - Lab Data Result diagrams: 11/08/18 10:49 11/08/18 10:49 Lab Results 11/08/18 11/08/18 11/08/18 Range/Units 10:49 10:49 10:49 WBC 8.7 (3.8-10.6) k/uL RBC 4.56 (4.30-5.90) m/uL Hgb 12.0 L (13.0-17.5) gm/dL Hct 37.0 L (39.0-53.0) % MCV 81.0 (80.0-100.0) fL MCH 26.3 (25.0-35.0) pg MCHC 32.4 (31.0-37.0) g/dL RDW 16.1 H (11.5-15.5) % Plt Count 289 (150-450) k/uL Neutrophils % 70 % Lymphocytes % 19 % Monocytes % 6 % Eosinophils % 3 % Basophils % 1 % Neutrophils # 6.1 (1.3-7.7) k/uL Lymphocytes # 1.6 (1.0-4.8) k/uL Monocytes # 0.5 (0-1.0) k/uL Eosinophils # 0.3 (0-0.7) k/uL Basophils # 0.1 (0-0.2) k/uL Hypochromasia Slight Poikilocytosis Slight Anisocytosis Slight PT (9.0-12.0) sec INR (<1.2) APTT (22.0-30.0) sec Sodium 130 L (137-145) mmol/L Potassium 4.6 (3.5-5.1) mmol/L Chloride 101 (98-107) mmol/L Carbon Dioxide 21 L (22-30) mmol/L Anion Gap 8 mmol/L BUN 37 H (9-20) mg/dL Creatinine 1.72 H (0.66-1.25) mg/dL Est GFR (CKD-EPI)AfAm 55 (>60 ml/min/1.73 sqM) Est GFR (CKD-EPI)NonAf 48 (>60 ml/min/1.73 sqM) Glucose 88 (74-99) mg/dL Calcium 8.6 (8.4-10.2) mg/dL Magnesium 1.6 (1.6-2.3) mg/dL Total Bilirubin 0.4 (0.2-1.3) mg/dL AST 16 L (17-59) U/L ALT 24 (21-72) U/L Alkaline Phosphatase 107 (38-126) U/L Troponin I (0.000-0.034) ng/mL NT-Pro-B Natriuret Pep 3380 pg/mL Total Protein 5.7 L (6.3-8.2) g/dL Albumin 3.3 L (3.5-5.0) g/dL 11/08/18 11/08/18 Range/Units 10:49 10:49 WBC (3.8-10.6) k/uL RBC (4.30-5.90) m/uL Hgb (13.0-17.5) gm/dL Hct (39.0-53.0) % MCV (80.0-100.0) fL MCH (25.0-35.0) pg MCHC (31.0-37.0) g/dL RDW (11.5-15.5) % Plt Count (150-450) k/uL Neutrophils % % Lymphocytes % % Monocytes % % Eosinophils % % Basophils % % Neutrophils # (1.3-7.7) k/uL Lymphocytes # (1.0-4.8) k/uL Monocytes # (0-1.0) k/uL Eosinophils # (0-0.7) k/uL Basophils # (0-0.2) k/uL Hypochromasia Poikilocytosis Anisocytosis PT 11.3 (9.0-12.0) sec INR 1.1 (<1.2) APTT 22.1 (22.0-30.0) sec Sodium (137-145) mmol/L Potassium (3.5-5.1) mmol/L Chloride (98-107) mmol/L Carbon Dioxide (22-30) mmol/L Anion Gap mmol/L BUN (9-20) mg/dL Creatinine (0.66-1.25) mg/dL Est GFR (CKD-EPI)AfAm (>60 ml/min/1.73 sqM) Est GFR (CKD-EPI)NonAf (>60 ml/min/1.73 sqM) Glucose (74-99) mg/dL Calcium (8.4-10.2) mg/dL Magnesium (1.6-2.3) mg/dL Total Bilirubin (0.2-1.3) mg/dL AST (17-59) U/L ALT (21-72) U/L Alkaline Phosphatase (38-126) U/L Troponin I 0.178 H* (0.000-0.034) ng/mL NT-Pro-B Natriuret Pep pg/mL Total Protein (6.3-8.2) g/dL Albumin (3.5-5.0) g/dL Disposition Clinical Impression: Hypotension, Hyponatremia, Elevated troponin I level, Systolic CHF, acute on chronic Disposition: ADMITTED IP TO THIS [facility] Condition: Stable Is patient prescribed a controlled substance at d/c from ED?: No Referrals: Junie New MD [Primary Care Provider] - 1-2 days Time of Disposition: 13:51 Decision to Admit Reason: Admit from EC Decision Date: 11/08/18 Decision Time: 13:52
--- NOTE | 2018-11-08 11:09 | XR ---
EXAMINATION TYPE: XR chest 1V portable DATE OF EXAM: 11/08/2018 COMPARISON: Chest x-ray from 2 days ago and older studies. HISTORY: Chest pain and hypotension. Weakness. TECHNIQUE: Single AP portable frontal upright view of the chest is obtained. FINDINGS: There is chronic parenchymal change without suspicious new focal air space opacity or pneu mothorax seen. The cardiac silhouette size is enlarged with multi lead pacemaker/AICD. Coronary art angel stents are redemonstrated proximal LAD and circumflex arteries. Mild central vascular congestion with small to tiny bilateral pleural effusions are felt present on current study. Degenerative change bilateral shoulders is redemonstrated IMPRESSION: Correlate for persistent CHF exacerbation as there is persistent cardiomegaly with suspe cted mild central vascular congestion and small to tiny bilateral pleural effusions now identified. C onsider progress two-view chest x-ray.
[2018-11-08 11:11] LABS: Albumin 3.3 g/dL (3.5-5.0); Anisocytosis Slight; Basophils # (A) 0.1 k/uL (0-0.2); Basophils % (A) 1 %; Calcium 8.6 mg/dL (8.4-10.2); Eosinophils # (A) 0.3 k/uL (0-0.7); Eosinophils % (A) 3 %; Hypochromasia Slight; Lymphocytes # (A) 1.6 k/uL (1.0-4.8); Lymphocytes % (A) 19 %; MCH 26.3 pg (25.0-35.0); MCHC 32.4 g/dL (31.0-37.0); Magnesium 1.6 mg/dL (1.6-2.3); Mean Platelet Volume 8.3; Monocytes # (A) 0.5 k/uL (0-1.0); Monocytes % (A) 6 %; Neutrophils # (A) 6.1 k/uL (1.3-7.7); Neutrophils % (A) 70 %; Platelet Count 289 k/uL (150-450); Poikilocytosis Slight; Potassium 4.6 mmol/L (3.5-5.1); RBC 4.56 m/uL (4.30-5.90); RDW 16.1 % (11.5-15.5); Total Bilirubin 0.4 mg/dL (0.2-1.3); Total Protein 5.7 g/dL (6.3-8.2); WBC 8.7 k/uL (3.8-10.6)
[2018-11-08 11:18] LABS: INR 1.1 (<1.2); Partial Thromboplastin Time 22.1 sec (22.0-30.0); Prothrombin Time 11.3 sec (9.0-12.0)
[2018-11-08] MEDS ORDERED: FUROSEMIDE 10 MG/ML 4 ML VIAL IV STA (11:47)
[2018-11-08] MEDS ORDERED: NALOXONE 0.4 MG/ML 1 ML VIAL IV PRN (13:47)
[2018-11-08] MEDS ORDERED: ACETAMINOPHEN TAB 325 MG TAB PO PRN (13:47)
[2018-11-08] MEDS ORDERED: MORPHINE SULFATE 4 MG/ML SYRINGE IV PRN (13:47)
[2018-11-08] MEDS ORDERED: NITROGLYCERIN SL TABS 0.4 MG TAB SUBLINGUAL PRN (14:56)
[2018-11-08] MEDS ORDERED: ALBUTEROL NEBULIZED 2.5 MG/3 ML INHALATION PRN (14:56)
[2018-11-08 17:13] LABS: Glucose,Whole Blood 94 mg/dL (75-99)
[2018-11-08] MEDS: DIGOXIN 125 MCG TAB PO SCH (19:05)
[2018-11-08] MEDS: INSULIN ASPART (NovoLOG) 100 UNIT/ML VIAL SQ SCH (19:05)
[2018-11-08] MEDS: CLOPIDOGREL 75 MG TAB PO SCH (20:47)
[2018-11-08] MEDS: PRIMIDONE 50 MG TAB PO SCH (20:48)
[2018-11-08] MEDS: METOPROLOL TARTRATE 50 MG TAB PO SCH (20:48)
[2018-11-08] MEDS: FUROSEMIDE 10 MG/ML 10 ML VIAL IV SCH (20:48)
[2018-11-08] MEDS: DULoxetine HCL 60 MG CAPSULE.DR PO SCH (20:48)
[2018-11-08] MEDS: RANOLAZINE 500 MG TAB.ER.12H PO SCH (20:48)
[2018-11-08 21:37] LABS: Glucose,Whole Blood 215 mg/dL (75-99)
[2018-11-08] MEDS: INSULIN DETEMIR (LEVEMIR) 100 UNIT/ML SYR SQ SCH (21:58)
--- NOTE | 2018-11-08 22:56 | P.HPIM ---
History of Present Illness H&P Date: 11/08/18 Chief Complaint: Shortness of breath Patient is a 48-year-old male with a known history of asthma,Coronary Artery Disease (CAD) with history of stent placement less than a year ago, Chest Pain / Angina, Heart Failure, CVA/TIA, Diabetes Mellitus insulin-dependent, Deep Vein T hrombosis (DVT), GERD/Reflux, Hyperlipidemia, Hypertension, Myocardial Infarction (SD), Osteoarthritis (OA), Pneumonia, Skin Disorder, Sleep Apnea/CPAP/BIPAP and other multiple medical problems came to ER with complaints of worsening shortness of breath and intermittent chest pain. Patient was seen at his primary care office this morning, noted to have a pulse ox in the 70s, low blood pressure. He was sent to the emergency department for evaluation. He had been seen at an outside emergency department earlier in the day for evaluations of chest pain. He had recent admission to [facility] for cardiology. Basically this patient has no other options in terms of intervention for his coronary artery disease. He is on maximal medical management and continues to have chest pain. Chest x-ray showed correlate for persistent CHF. Creatinine 1.72. Baseline 1.1 Troponin 0.171 and 0.152 BNP 3380 and sodium 130 EKG showed atrial sensed ventricular paced rhythm. Review of Systems Constitutional: Patient denies any fever or chills . No generalized weakness or weight loss. Abdomen: Patient denied nausea vomiting and diarrhea and abdominal pain. Cardiovascular: Patient denied any complains of chest pain. Worsening shortness of breath and minimal leg swelling. Respiratory: patient denied any cough is from production. No shortness of breath Neurologic: Patient denied any numbness or tingling headache. Musculoskeletal: Patient denies any complaints of joint swelling or deformity. Skin: Negative Psychiatric: Negative Endocrine: No heat or cold intolerance. No recent weight gain. Genitourinary: No dysuria or hematuria. All other 14 point ROS negative except the above Past Medical History Past Medical History: Asthma, Coronary Artery Disease (CAD), Chest Pain / Angina, Heart Failure, CVA/TIA, Diabetes Mellitus, Deep Vein Thrombosis (DVT), GERD/Reflux, Hyperlipidemia, Hypertension, Myocardial Infarction (SD), Osteoarthritis (OA), Pneumonia, Skin Disorder, Sleep Apnea/CPAP/BIPAP Additional Past Medical History / Comment(s): multiple vessel CAD, ischemic cardiomyopathy, diabetic neuropathy bilateral hands and feet, hypertensive cardiovascular disease, SHELIA with no device, chronic gastritis, degenerative disc disease, chronic back pain, depression with hx of suicide attempts, gastroparesis, psoriasis, UTI, migraines, TIA, PUD, hiatal hernia, L rotator cuff tear, bronchitis, pseudoaneurysm L groin post procedure. 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 Date of Last Stent Placement:: 10/2017 Type of Cardiac Device: Biventricular Pacemaker, AICD Device Placement Date:: 09/19/15 Past Psychological History: Anxiety, Depression, PTSD Smoking Status: Never smoker Past Alcohol Use History: None Reported Past Drug Use History: None Reported - Past Family History Mother Family Medical History: Coronary Artery Disease (CAD), Myocardial Infarction (SD) Additional Family Medical History / Comment(s): 7 SD and faulty heart valve. Pt does not know the age when mother had her SD's. Father History Unknown: Yes Additional Family Medical History / Comment(s): Does not know who father is. Brother(s) Family Medical History: Cancer, Congestive Heart Failure (CHF), Myocardial Infarction (SD) Additional Family Medical History / Comment(s): Parkinsons. Pt does not know at what age his brother had an SD. Patient's other brother has lung CA Patient has Family Medical History: No Reported History Additional Family Medical History / Comment(s): There is a strong family history for heart disease, hypertension, and diabetes. Medications and Allergies Home Medications Medication Instructions Recorded Confirmed Type Clopidogrel [Plavix] 75 mg PO QAM 12/03/17 11/08/18 History Digoxin [Digitek] 125 mcg PO DAILY 02/01/18 11/08/18 History Spironolactone [Aldactone] 25 mg PO DAILY 02/01/18 11/08/18 History Albuterol Inhaler [Ventolin Hfa 2 puff INHALATION RT-Q6H PRN 04/01/18 11/08/18 History Inhaler] Pantoprazole [Protonix] 40 mg PO DAILY 04/01/18 11/08/18 History Primidone [Mysoline] 100 mg PO BID 04/01/18 11/08/18 History DULoxetine HCL [Cymbalta] 60 mg PO BID capsule. 05/10/18 11/08/18 Rx Lisinopril [Zestril] 5 mg PO DAILY 06/06/18 11/08/18 History Aspirin EC [Ecotrin Low Dose] 81 mg PO DAILY 07/20/18 11/08/18 History Rosuvastatin Calcium [Crestor] 40 mg PO DAILY 09/28/18 11/08/18 History Isosorbide Mononitrate [Imdur] 120 mg PO DAILY 10/31/18 11/08/18 History Torsemide [Demadex] 20 mg PO BID 10/31/18 11/08/18 History Carvedilol [Coreg] 6.25 mg PO BID 11/06/18 11/08/18 History Ranolazine [Ranexa] 500 mg PO BID 11/06/18 11/08/18 History Insulin Aspart [NovoLOG Flexpen] 16 units SQ AC-TID 11/08/18 11/08/18 History Insulin Glargine,Hum.rec.anlog 50 unit SQ HS 11/08/18 11/08/18 History [Basaglar Kwikpen U-100] Metoprolol Tartrate [Lopressor] 50 mg PO BID 11/08/18 11/08/18 History Nitroglycerin Sl Tabs [Nitrostat] 0.4 mg SUBLINGUAL Q5M PRN 11/08/18 11/08/18 History Tamsulosin HCl [Flomax] 0.4 mg PO DAILY 11/08/18 11/08/18 History Allergies Allergy/AdvReac Type Severity Reaction Status Date / Time erythromycin base Allergy Severe Rash/Hives Verified 11/08/18 10:59 [Erythromycin Base] cephalexin monohydrate Allergy Unknown Rash/Hives Verified 11/08/18 10:59 [From Keflex] codeine Allergy Unknown Unknown Verified 11/08/18 10:59 meclizine Allergy Unknown Unknown Verified 11/08/18 10:59 Penicillins Allergy Unknown Rash/Hives Verified 11/08/18 10:59 shellfish derived Allergy Unknown Anaphylaxis Verified 11/08/18 10:59 Fish Containing Products Allergy Anaphylaxis Verified 11/08/18 10:59 [Fish] Iodinated Contrast- Oral and Allergy Anaphylaxis Verified 11/08/18 10:59 IV Dye naproxen AdvReac Unknown Compromises Verified 11/08/18 10:59 Kidney Function atorvastatin calcium AdvReac Myalgia Verified 11/08/18 10:59 [From Lipitor] hydrocodone [From [place]] AdvReac Rapid Verified 11/08/18 10:59 Heart Rate Physical Exam Vitals: Vital Signs Temp Pulse Resp BP Pulse Ox 11/08/18 13:30 56 L 14 84/51 100 11/08/18 13:00 60 12 86/56 100 11/08/18 12:59 97.4 F L 58 L 18 84/61 100 11/08/18 12:00 58 L 8 L 84/70 100 11/08/18 11:34 58 L 18 82/55 100 11/08/18 11:30 57 L 24 79/60 100 11/08/18 11:15 57 L 12 79/57 100 11/08/18 11:10 57 L 11 L 79/57 100 11/08/18 11:00 58 L 12 85/46 100 11/08/18 10:50 57 L 18 69/54 100 11/08/18 10:40 57 L 18 80/55 100 11/08/18 10:30 59 L 18 88/59 100 11/08/18 10:25 57 L 25 H 80/55 100 Intake and Output 11/07/18 11/08/18 11/08/18 22:59 06:59 14:59 Other: Weight 115.666 kg PHYSICAL EXAMINATION: Patient is lying in the bed comfortably, no acute distress, awake alert and oriented.. HEENT: Normocephalic. Neck is supple. Pupils reactive. Nostrils clear. Oral cavity is moist. Ears reveal no drainage. Neck reveals no JVD, carotid bruits, or thyromegaly. CHEST EXAMINATION: Trachea is central. Symmetrical expansion. Bibasilar diminished air entry. No wheezing. Otherwise Lung hendrix clear to auscultation and percussion. CARDIAC: Normal S1, S2 with no gallops. No murmurs ABDOMEN: Soft. Bowel sounds normal. No organomegaly. No abdominal bruits. Extremities: 2+ edema. No clubbing or cyanosis Neurologically awake, alert, oriented x3 with well-coordinated movements. Generalized weakness. No focal deficits noted Skin: No rash or skin lesions. Psychiatric: Coperative. Nonsuicidal Musculoskeletal: No joint swelling or deformity. Normal range of motion. Results CBC & Chem 7: 11/08/18 10:49 11/08/18 10:49 Labs: Abnormal Lab Results - Last 24 Hours (Table) 11/08/18 11/08/18 11/08/18 Range/Units 10:49 10:49 10:49 Hgb 12.0 L (13.0-17.5) gm/dL Hct 37.0 L (39.0-53.0) % RDW 16.1 H (11.5-15.5) % Sodium 130 L (137-145) mmol/L Carbon Dioxide 21 L (22-30) mmol/L BUN 37 H (9-20) mg/dL Creatinine 1.72 H (0.66-1.25) mg/dL AST 16 L (17-59) U/L Troponin I 0.178 H* (0.000-0.034) ng/mL Total Protein 5.7 L (6.3-8.2) g/dL Albumin 3.3 L (3.5-5.0) g/dL Thrombosis Risk Factor Assmnt - DVT/VTE Prophylaxis DVT/VTE Prophylaxis: Pharmacologic Prophylaxis ordered Assessment and Plan Assessment: Acute on chronic CHF with systolic dysfunction. Ejection fraction less than 20% Acute on chronic kidney disease stage III. Creatinine 1.72. Baseline creatinine 1.09 Hyperglycemia with uncontrolled diabetes type 2. A1c 13.6 in July 2018 Multi-Vessel coronary artery disease with recent stent placement at outside hospital facility.. Maximal medical therapy was recommended. ischemic cardiomyopathy Diabetic peripheral neuropathy of bilateral hand and feet Hypertensive heart disease obstructive sleep apnea not on CPAP at home Chronic gastritis Degenerative disc disease Chronic back pain Depression with history of suicide attempts Admitting gastroparesis Psoriasis History of migraine headaches History of TIA Hiatal hernia Right rotator cuff tear history History of CVA in 2018 with TPA administration Coronary artery disease with history of stent placement History of biventricular pacer, AICD placement Anxiety/depression and PTSD History of multiple suicide attempts History of alcohol abuse History of marijuana use DVT prophylaxis Plan: Patient be continued on IV Lasix. Continue with other home medications and insulin dosing. Monitor CBC and BMP. Monitor renal function. Further jennifer mmendations based on the clinical course. Prognosis is guarded. Continue with maximal medical therapy for his multivessel coronary artery disease. Time with Patient: Greater than 30
[2018-11-08] MEDS: HEPARIN SODIUM,PORCINE 5,000 UNIT/ML 1 ML VIAL SQ SCH (23:13)
[2018-11-09 06:27] LABS: Anisocytosis Slight; Basophils # (A) 0.1 k/uL (0-0.2); Basophils % (A) 1 %; Eosinophils # (A) 0.2 k/uL (0-0.7); Eosinophils % (A) 3 %; HCT 35.7 % (39.0-53.0); HGB 11.3 gm/dL (13.0-17.5); Hypochromasia Slight; Lymphocytes # (A) 1.6 k/uL (1.0-4.8); Lymphocytes % (A) 21 %; MCH 26.2 pg (25.0-35.0); MCHC 31.7 g/dL (31.0-37.0); MCV 82.7 fL (80.0-100.0); Mean Platelet Volume 7.5; Monocytes # (A) 0.4 k/uL (0-1.0); Monocytes % (A) 5 %; Neutrophils # (A) 5.2 k/uL (1.3-7.7); Neutrophils % (A) 68 %; Platelet Count 263 k/uL (150-450); Poikilocytosis Slight; RBC 4.31 m/uL (4.30-5.90); RDW 16.4 % (11.5-15.5); WBC 7.7 k/uL (3.8-10.6)
[2018-11-09 06:33] LABS: Calcium 8.7 mg/dL (8.4-10.2); Potassium 4.1 mmol/L (3.5-5.1)
[2018-11-09 06:43] LABS: Glucose,Whole Blood 107 mg/dL (75-99)
[2018-11-09] MEDS: INSULIN ASPART (NovoLOG) 100 UNIT/ML VIAL SQ SCH ×3 (07:09→17:10)
[2018-11-09] MEDS: PANTOPRAZOLE 40 MG TABLET PO SCH (07:09)
[2018-11-09] MEDS: DIGOXIN 125 MCG TAB PO SCH (08:50)
[2018-11-09] MEDS: CLOPIDOGREL 75 MG TAB PO SCH (08:50)
[2018-11-09] MEDS: TAMSULOSIN 0.4 MG CAP.ER.24H PO SCH (08:50)
[2018-11-09] MEDS: LISINOPRIL 5 MG TAB PO SCH (08:50)
[2018-11-09] MEDS: RANOLAZINE 500 MG TAB.ER.12H PO SCH ×2 (08:50→19:35)
[2018-11-09] MEDS: METOPROLOL TARTRATE 50 MG TAB PO SCH ×2 (08:50→19:35)
[2018-11-09] MEDS: DULoxetine HCL 60 MG CAPSULE.DR PO SCH ×2 (08:50→19:35)
[2018-11-09] MEDS: ISOSORBIDE MONONITRATE ER 60 MG TAB.ER.24H PO SCH (08:51)
[2018-11-09] MEDS: PRIMIDONE 50 MG TAB PO SCH ×2 (08:51→19:35)
[2018-11-09] MEDS: SPIRONOLACTONE 25 MG TAB PO SCH (08:51)
[2018-11-09] MEDS: FUROSEMIDE 10 MG/ML 10 ML VIAL IV SCH (08:52)
[2018-11-09] MEDS: CRESTOR 40 MG PO SCH (08:52)
[2018-11-09] MEDS: HEPARIN SODIUM,PORCINE 5,000 UNIT/ML 1 ML VIAL SQ SCH ×3 (08:52→23:27)
[2018-11-09] MEDS ORDERED: ASPIRIN 81 MG PO SCH (09:00)
[2018-11-09 11:45] LABS: Glucose,Whole Blood 60 mg/dL (75-99)
[2018-11-09 11:45] LABS: Glucose,Whole Blood 63 mg/dL (75-99)
[2018-11-09 11:49] LABS: Glucose,Whole Blood 71 mg/dL (75-99)
[2018-11-09 17:09] LABS: Glucose,Whole Blood 152 mg/dL (75-99)
[2018-11-09 18:37] LABS: Glucose,Whole Blood 184 mg/dL (75-99)
--- NOTE | 2018-11-09 19:08 | CT ---
EXAMINATION TYPE: CT brain wo con for TPA DATE OF EXAM: 11/09/2018 COMPARISON: 09/15/2018 HISTORY: Right sided weakness. CT DLP: 1113.4 mGycm Automated exposure control for dose reduction was used. FINDINGS: There is cerebral cortical atrophy. There is no mass effect nor midline shift. There is no sign of in tracranial hemorrhage. Calvarium is intact. There is white matter hypodensity in both frontal lobes. IMPRESSION: Cerebral atrophy. No acute intracranial abnormality. There is more noticeable atrophy in the frontal lobes. No evidence of cortical infarct. No significant change compared to old exam.
[2018-11-09 19:21] LABS: Anisocytosis Slight; Basophils # (A) 0.1 k/uL (0-0.2); Basophils % (A) 1 %; Eosinophils # (A) 0.2 k/uL (0-0.7); Eosinophils % (A) 3 %; HGB 11.4 gm/dL (13.0-17.5); Hypochromasia Moderate; Lymphocytes % (A) 14 %; MCH 26.8 pg (25.0-35.0); MCHC 32.5 g/dL (31.0-37.0); MCV 82.5 fL (80.0-100.0); Mean Platelet Volume 7.6; Monocytes # (A) 0.4 k/uL (0-1.0); Monocytes % (A) 6 %; Neutrophils # (A) 5.3 k/uL (1.3-7.7); Neutrophils % (A) 75 %; Platelet Count 265 k/uL (150-450); Poikilocytosis Slight; RBC 4.25 m/uL (4.30-5.90); RDW 16.1 % (11.5-15.5); WBC 7.1 k/uL (3.8-10.6)
[2018-11-09 19:26] LABS: INR 1.2 (<1.2); Partial Thromboplastin Time 23.3 sec (22.0-30.0); Prothrombin Time 12.1 sec (9.0-12.0)
[2018-11-09 19:28] LABS: Albumin 3.2 g/dL (3.5-5.0); Calcium 8.5 mg/dL (8.4-10.2); Potassium 4.2 mmol/L (3.5-5.1); Total Bilirubin 0.4 mg/dL (0.2-1.3); Total Protein 5.6 g/dL (6.3-8.2)
[2018-11-09] MEDS: ASPIRIN 325 MG TAB PO SCH (19:35)
[2018-11-09] MEDS ORDERED: FUROSEMIDE 10 MG/ML 4 ML VIAL IV SCH (21:00)
[2018-11-09 21:46] LABS: Glucose,Whole Blood 91 mg/dL (75-99)
[2018-11-09] MEDS: INSULIN DETEMIR (LEVEMIR) 100 UNIT/ML SYR SQ SCH (21:48)
--- NOTE | 2018-11-09 23:31 | P.PN ---
Subjective Progress Note Date: 11/09/18 Principal diagnosis: Acute CHF exacerbation Patient is a 48-year-old male with a known history of asthma,Coronary Artery Disease (CAD) with history of stent placement less than a year ago, Chest Pain / Angina, Heart Failure, CVA/TIA, Diabetes Mellitus insulin-dependent, Deep Vein Thrombosis (DVT), GERD/Reflux, Hyperlipidemia, Hypertension, Myocardial Infarction ([place]), Osteoarthritis (OA), Pneumonia, Skin Disorder, Sleep Apnea/CPAP/BIPAP and other multiple medical problems came to ER with complaints of worsening shortness of breath and intermittent chest pain. Patient was seen at his primary care office this morning, noted to have a pulse ox in the 70s, low blood pressure. He was sent to the emergency department for evaluation. He had been seen at an outside emergency department earlier in the day for evaluations of chest pain. He had recent admission to [facility] for cardiology. Basically this patient has no other options in terms of intervention for his coronary artery disease. He is on maximal medical management and continues to have chest pain. Chest x-ray showed correlate for persistent CHF. Creatinine 1.72. Baseline 1.1 Troponin 0.171 and 0.152 BNP 3380 and sodium 130 EKG showed atrial sensed ventricular paced rhythm. 11/09/2018 Patient says that he is feeling better today. No complaints of chest pain. Breathing status is improving. Patient is being continued on IV Lasix. Renal function improved with creatinine level I.3. Otherwise no fever no chills. Blood sugar is fairly controlled. Denied any nausea vomiting or abdominal pain or diarrhea. Leg swelling is improving as well. Anticipate discharge in next 24 hours. Current medications reviewed. Objective - Vital Signs Vital signs: Vital Signs Temp 96.8 F L 11/09/18 03:28 Pulse 72 11/09/18 16:00 Resp 16 11/09/18 16:00 BP 95/63 11/09/18 16:00 Pulse Ox 97 11/09/18 16:00 Intake & Output 11/09/18 11/09/18 11/10/18 06:59 18:59 06:59 Intake Total 720 902 Output Total 3200 3350 Balance -2480 -2448 Weight 112.7 kg Intake: IV 20 Invasive Line 1 20 Oral 700 902 Output: Urine 3200 3350 Other: Voiding Method Indwelling Catheter Indwelling Catheter - Exam PHYSICAL EXAMINATION: Patient is lying in the bed comfortably, no acute distress, awake alert and oriented.. HEENT: Normocephalic. Neck is supple. Pupils reactive. Nostrils clear. Oral cavity is moist. Ears reveal no drainage. Neck reveals no JVD, carotid bruits, or thyromegaly. CHEST EXAMINATION: Trachea is central. Symmetrical expansion. Bibasilar diminished air entry. No wheezing. Otherwise Lung hendrix clear to auscultation and percussion. CARDIAC: Normal S1, S2 with no gallops. No murmurs ABDOMEN: Soft. Bowel sounds normal. No organomegaly. No abdominal bruits. Extremities: 2+ edema. No clubbing or cyanosis Neurologically awake, alert, oriented x3 with well-coordinated movements. Generalized weakness. No focal deficits noted Skin: No rash or skin lesions. Psychiatric: Coperative. Nonsuicidal Musculoskeletal: No joint swelling or deformity. Normal range of motion. - Labs CBC & Chem 7: 11/09/18 19:03 11/09/18 19:03 Labs: Abnormal Lab Results - Last 24 Hours (Table) 11/08/18 11/08/18 11/09/18 Range/Units 21:35 23:04 05:49 RBC (4.30-5.90) m/uL Hgb 11.3 L (13.0-17.5) gm/dL Hct 35.7 L (39.0-53.0) % RDW 16.4 H (11.5-15.5) % PT (9.0-12.0) sec INR (<1.2) Sodium (137-145) mmol/L BUN (9-20) mg/dL Creatinine (0.66-1.25) mg/dL Glucose (74-99) mg/dL POC Glucose (mg/dL) 215 H (75-99) mg/dL AST (17-59) U/L Troponin I 0.118 H* (0.000-0.034) ng/mL Total Protein (6.3-8.2) g/dL Albumin (3.5-5.0) g/dL 11/09/18 11/09/18 11/09/18 Range/Units 05:49 06:32 11:30 RBC (4.30-5.90) m/uL Hgb (13.0-17.5) gm/dL Hct (39.0-53.0) % RDW (11.5-15.5) % PT (9.0-12.0) sec INR (<1.2) Sodium 133 L (137-145) mmol/L BUN 38 H (9-20) mg/dL Creatinine 1.47 H (0.66-1.25) mg/dL Glucose (74-99) mg/dL POC Glucose (mg/dL) 107 H 60 L (75-99) mg/dL AST (17-59) U/L Troponin I (0.000-0.034) ng/mL Total Protein (6.3-8.2) g/dL Albumin (3.5-5.0) g/dL 11/09/18 11/09/18 11/09/18 Range/Units 11:39 11:46 17:00 RBC (4.30-5.90) m/uL Hgb (13.0-17.5) gm/dL Hct (39.0-53.0) % RDW (11.5-15.5) % PT (9.0-12.0) sec INR (<1.2) Sodium (137-145) mmol/L BUN (9-20) mg/dL Creatinine (0.66-1.25) mg/dL Glucose (74-99) mg/dL POC Glucose (mg/dL) 63 L 71 L 152 H (75-99) mg/dL AST (17-59) U/L Troponin I (0.000-0.034) ng/mL Total Protein (6.3-8.2) g/dL Albumin (3.5-5.0) g/dL 11/09/18 11/09/18 11/09/18 Range/Units 18:36 19:03 19:03 RBC 4.25 L (4.30-5.90) m/uL Hgb 11.4 L (13.0-17.5) gm/dL Hct 35.0 L (39.0-53.0) % RDW 16.1 H (11.5-15.5) % PT 12.1 H (9.0-12.0) sec INR 1.2 H (<1.2) Sodium (137-145) mmol/L BUN (9-20) mg/dL Creatinine (0.66-1.25) mg/dL Glucose (74-99) mg/dL POC Glucose (mg/dL) 184 H (75-99) mg/dL AST (17-59) U/L Troponin I (0.000-0.034) ng/mL Total Protein (6.3-8.2) g/dL Albumin (3.5-5.0) g/dL 11/09/18 11/09/18 Range/Units 19:03 19:03 RBC (4.30-5.90) m/uL Hgb (13.0-17.5) gm/dL Hct (39.0-53.0) % RDW (11.5-15.5) % PT (9.0-12.0) sec INR (<1.2) Sodium 133 L (137-145) mmol/L BUN 37 H (9-20) mg/dL Creatinine 1.57 H (0.66-1.25) mg/dL Glucose 137 H (74-99) mg/dL POC Glucose (mg/dL) (75-99) mg/dL AST 12 L (17-59) U/L Troponin I 0.091 H* (0.000-0.034) ng/mL Total Protein 5.6 L (6.3-8.2) g/dL Albumin 3.2 L (3.5-5.0) g/dL Assessment and Plan Assessment: Acute on chronic CHF with systolic dysfunction. Ejection fraction less than 20% Acute on chronic kidney disease stage III. Creatinine 1.72. Baseline creatinine 1.09 Hyperglycemia with uncontrolled diabetes type 2. A1c 13.6 in July 2018 Multi-Vessel coronary artery disease with recent stent placement at outside hospital facility.. Maximal medical therapy was recommended. ischemic cardiomyopathy Diabetic peripheral neuropathy of bilateral hand and feet Hypertensive heart disease obstructive sleep apnea not on CPAP at home Chronic gastritis Degenerative disc disease Chronic back pain Depression with history of suicide attempts Admitting gastroparesis Psoriasis History of migraine headaches History of TIA Hiatal hernia Right rotator cuff tear history History of CVA in 2018 with TPA administration Coronary artery disease with history of stent placement History of biventricular pacer, AICD placement Anxiety/depression and PTSD History of multiple suicide attempts History of alcohol abuse History of marijuana use DVT prophylaxis Plan: Patient be continued on IV Lasix. Continue with other home medications and insulin dosing. Monitor CBC and BMP. Monitor renal function. Further recommendations based on the clinical course. Prognosis is guarded. Continue with maximal medical therapy for his multivessel coronary artery disease. Time with Patient: Greater than 30
[2018-11-10 06:28] LABS: Glucose,Whole Blood 73 mg/dL (75-99)
[2018-11-10] MEDS: INSULIN ASPART (NovoLOG) 100 UNIT/ML VIAL SQ SCH ×2 (06:29→11:39)
[2018-11-10] MEDS: PANTOPRAZOLE 40 MG TABLET PO SCH (06:29)
[2018-11-10 07:50] VITALS: PULSE 68; RESP 18
[2018-11-10] MEDS: DIGOXIN 125 MCG TAB PO SCH (07:53)
[2018-11-10] MEDS: CLOPIDOGREL 75 MG TAB PO SCH (07:53)
[2018-11-10] MEDS: HEPARIN SODIUM,PORCINE 5,000 UNIT/ML 1 ML VIAL SQ SCH (07:53)
[2018-11-10] MEDS: ISOSORBIDE MONONITRATE ER 60 MG TAB.ER.24H PO SCH (07:53)
[2018-11-10] MEDS: TAMSULOSIN 0.4 MG CAP.ER.24H PO SCH (07:53)
[2018-11-10] MEDS: METOPROLOL TARTRATE 50 MG TAB PO SCH (07:53)
[2018-11-10] MEDS: SPIRONOLACTONE 25 MG TAB PO SCH (07:53)
[2018-11-10] MEDS: PRIMIDONE 50 MG TAB PO SCH (07:54)
[2018-11-10] MEDS: RANOLAZINE 500 MG TAB.ER.12H PO SCH (07:54)
[2018-11-10] MEDS: ASPIRIN 325 MG TAB PO SCH (07:54)
[2018-11-10] MEDS: CRESTOR 40 MG PO SCH (07:54)
[2018-11-10] MEDS: DULoxetine HCL 60 MG CAPSULE.DR PO SCH (07:54)
[2018-11-10] MEDS: LISINOPRIL 5 MG TAB PO SCH (07:54)
[2018-11-10 07:59] LABS: Glucose,Whole Blood 72 mg/dL (75-99)
--- NOTE | 2018-11-10 08:25 | US ---
EXAMINATION TYPE: US carotid duplex BILAT DATE OF EXAM: 11/10/2018 COMPARISON: US, CTA CLINICAL HISTORY: possible stroke. Right sided arm weakness, numbness, tingling; patient stated has h eart problems; IJV line present right neck EXAM MEASUREMENTS: RIGHT: Peak Systolic Velocity (PSV) cm/sec ----- Right CCA: 58.1 ----- Right ICA: 94.0 ----- Right ECA: 62.9 ICA/CCA ratio: 1.6 RIGHT: End Diastole cm/sec ----- Right CCA: 16.4 ----- Right ICA: 39.6 ----- Right ECA: 11.1 LEFT: Peak Systolic Velocity (PSV) cm/sec ----- Left CCA: 55.5 ----- Left ICA: 58.1 ----- Left ECA: 55.2 ICA/CCA ratio: 1.0 LEFT: End Diastole cm/sec ----- Left CCA: 14.1 ----- Left ICA: 15.4 ----- Left ECA: 9.7 VERTEBRALS (direction of flow): Right Vertebral: Antegrade Left Vertebral: Antegrade Rhythm: Normal Mixed wall plaque imaged at bilateral carotid bifurcation, but PSV is wnl bilaterally. IMPRESSION: 1. Bilateral atherosclerotic plaque with no significant hemodynamic stenosis as visualized. Criteria for Assigning % of Stenosis / Diameter reduction (Estimation based on the indirect measurements of the internal carotid artery velocities (ICA PSV). 1. Normal (no stenosis)=ICA PSV < 125 cm/s: ratio < 2.0: ICA EDV<40 cm/s. 2. Less than 50% stenosis=ICA PSV < 125 cm/s: ratio < 2.0: ICA EDV<40 cm/s. 3. 50 to 69% stenosis=ICA PSV of 125 to 230 cm/s: ration 2.0 ? 4.0: ICA EDV 40-100 cm/s. 4. Greater than 70% stenosis to near occlusion= ICA PSV > 230 cm/s: ratio > 4.0: ICA EDV > 100 cm/s. 5. Near occlusion= ICA PSV velocities may be low or undetectable: variable ratio and ICA EDV. 6. Total occlusion=unable to detect flow.
[2018-11-10 08:50] LABS: Potassium 3.9 mmol/L (3.5-5.1)
[2018-11-10] MEDS ORDERED: FUROSEMIDE 40 MG TAB PO SCH (09:00)
[2018-11-10 09:19] LABS: Anisocytosis Slight; HGB 11.7 gm/dL (13.0-17.5); Hypochromasia Slight; MCH 26.5 pg (25.0-35.0); MCHC 31.7 g/dL (31.0-37.0); MCV 83.7 fL (80.0-100.0); Mean Platelet Volume 7.7; Platelet Count 256 k/uL (150-450); RBC 4.42 m/uL (4.30-5.90); RDW 16.4 % (11.5-15.5); WBC 5.9 k/uL (3.8-10.6)
[2018-11-10] MEDS ORDERED: LORazepam 2 MG/ML INJ IV STA (10:41)
[2018-11-10 10:54] LABS: Basophils # (M) 0.06 k/uL (0-0.2); Eosinophils # (M) 0.18 k/uL (0-0.7); Lymphocytes # (M) 1.77 k/uL (1.0-4.8); Monocytes # (M) 0.83 k/uL (0-1.0); Neutrophils # (M) 3.07 k/uL (1.3-7.7); Neutrophils % (M) 52 %; Nucleated Red Blood Cells 0 /100 WBC (0-0); Total Cells Counted 100
[2018-11-10 11:18] VITALS: BP 88/61; TEMP 97.3
[2018-11-10 11:49] LABS: Glucose,Whole Blood 106 mg/dL (75-99)
[2018-11-10 11:56] LABS: Cholesterol 109 mg/dL (<200); HDL Cholesterol 35 mg/dL (40-60); LDL Cholesterol,Calculated 55 mg/dL (0-99); Triglycerides 97 mg/dL (<150)
--- NOTE | 2018-11-10 13:43 | CONS ---
CONSULTATION DATE OF SERVICE: 11/10/2018 HISTORY OF PRESENT ILLNESS: Thank you for allowing me to evaluate Ti Dunham who is a 42-year-old right- handed white male who presented to [facility] on 11/08/2018 due to shortness of breath and hypotension with the patient stating that his blood pressure was in the 60s systolic. He denied associated chest pain. He was diagnosed with acute on chronic CHF and acute on chronic kidney disease and has been admitted for further evaluation and treatment. Yesterday while the patient was in the bathroom and shortly after urinating and defecating (he did not strain), the patient states he developed a "twinge" of pain on the right side of his face, there was also pain involving the right upper and lower extremity in addition to the right side becoming weak and numb. The patient is not sure if he had a facial droop, although states the numbness did affect the face, arm and leg on the right without left-sided involvement. There was no associated loss of consciousness, the patient states there was associated vertigo and he believes some dysarthria, but no diplopia or difficulty chewing/swallowing. The patient was receiving Plavix and aspirin 81 mg q. day at the time of this event. A "code stroke" was called. The patient was sent for a stat CT of the brain, which demonstrated atrophy but no acute pathology, the patient was not felt to be a tPA or intervention candidate and the tele neurologist recommended increasing the patient's aspirin from 81 to 325 mg and continuing Plavix. At this time, the patient states he feels "okay" but states that the right side still bothers him with more weakness and numbness on the right side then he typically has. He states his right hand feels cold and there continues to be pain on the right side, although all these symptoms have improved as compared to yesterday. His denies significant dysarthria at this time. The patient does have a history of one previous stroke in April 2018 at which time he presented with similar symptoms of right-sided pain, weakness and numbness, he states he did receive tPA at that time with a good recovery, although continues to have some degree of right-sided weakness following this event and states that since that time he "can't think of words". He states the current right-sided symptoms are slightly more prominent than what he had as residual from the previous stroke. The patient states he was on Plavix and aspirin at the time of that previous stroke and those medications were continued upon discharge. The patient states he was able to be discharged home, did not have to go to rehab following that event in April 2018. The patient does follow with a neurologist on an outpatient basis and apparently has been diagnosed with essential tremor and is maintained on Mysoline, which he has taken over the past 2 years. The patient has a history of previous DVT and was transiently on Eliquis. The patient and his deny history of atrial fibrillation, although the patient does have an extensive cardiac history including an ischemic cardiomyopathy with last echocardiogram from 07/07/2018 at this facility demonstrating severe global hypokinesis of the left ventricle with ejection fraction of less than 20%. The patient states he has had multiple myocardial infarctions, has multiple stents in place, history of ventricular tachycardia and is status post AICD placement. It is unclear at this time if his device is MRI compatible. ALLERGIES: ERYTHROMYCIN, KEFLEX, CODEINE, MECLIZINE, PENICILLIN, IV DYE, NAPROXEN, LIPITOR, and NORCO. HOME MEDICATIONS: Demadex, Flomax, Aldactone, Crestor, Ranexa, Mysoline 100 mg b.i.d., Protonix, Nitrostat, Lopressor, Zestril, Imdur, NovoLog, Basaglar, Digitek, Cymbalta 60 mg b.i.d., Plavix 75 mg q. day, Coreg, aspirin 81 mg q. day and albuterol. PAST MEDICAL HISTORY: Ischemic cardiomyopathy with ejection fraction of less than 20%, multiple myocardial infarctions, diabetes mellitus since 2001 with associated diabetic peripheral neuropathy, hypertension, obstructive sleep apnea (noncompliant with CPAP), chronic kidney disease, chronic CHF, ventricular tachycardia, coronary artery disease, depression, anxiety, asthma, DVT, GERD, hyperlipidemia, essential tremor, and stroke as described above in April 2018 at which time the patient did receive tPA. PAST SURGICAL HISTORY: AICD placement, multiple coronary stents, right inguinal hernia repair, umbilical hernia repair, right orchiectomy, cholecystectomy and appendectomy. SOCIAL HISTORY: The patient denied tobacco use and states that he has been "clean" of alcohol over the past 9 years. He does have a history of previous heavy alcohol consumption. He states he has not used marijuana since 2000. He is with 3 biologic children and lives in a house with his , although he is currently staying with his [id number]. He began using a single prong cane over the past 2 weeks, although his states that they have been trying to get him to use this device for a longer period of time. FAMILY HISTORY: There is a family history of premature cardiac disease in the patient's maternal uncle who had a myocardial infarction in his 40s. Mother had a valve replacement. REVIEW OF SYSTEMS: Fourteen systems are reviewed and no additional points are identified. Review of systems documented in his history and physical. PHYSICAL EXAM: Upon my arrival to the patient's room in the ICU, he was sitting in a bedside chair, was at the bedside, the patient was receptive to the examiner. Affect is mildly flat. He is obese, deconditioned and appears of stated age. VITAL SIGNS: Blood pressure is 103/71 with pulse of 68, respiratory rate 18, temperature is 97.4, weight is 112.8 kg on a 5 feet 6 inch frame. SKIN AND EXTREMITIES: The patient has multiple tattoos. He has a scar over the medial aspect of the left knee related to previous trauma. HEAD AND NECK: No tenderness or signs of trauma. Neck is supple without meningeal signs. Arteries are nontender and without bruits. HEART: Regular rate and rhythm. HIGHER CORTICAL FUNCTION: MENTAL STATUS: Patient was alert and oriented to self. He knew he was in [facility]. He knew the year, month, day of week and could name the current president. He was able to name, repeat and read. There was no right or left disorientation, finger agnosia, extinction to double simultaneous stimulation or dysarthria. CRANIAL NERVES II through XII: Pupils are equal and reactive to light symmetrically. No afferent pupillary defect. Visual hendrix are intact to confrontation. III, IV, : No ptosis. Extraocular movements are full. No nystagmus. V: Patient reports diminution to pinprick and light touch involving the right side of the face as compared to the left. motor of V intact. IV: No facial asymmetry or weakness. Acuity intact to finger rub. IX, X: Palate ciarra in the midline. XI: Trapezius strength intact. XII: Tongue protruded midline without fasciculation or atrophy. MOTOR EXAMINATION: There is no pronator drift. Normal bulk and tone is normal is noted in all major muscle groups with no involuntary movements noted. In particular, no significant tremor is present at this time despite the patient's history of tremor. Strength is 5/5 involving the left upper and lower extremity except at the interossei which is 4+ or 5. In the right upper extremity, there is give-way weakness in a non pyramidal distribution with strength of at least 4+ over 5 with encouragement. When assessing interossei bilaterally, strength was symmetric at 4 to 4+ over 5. In the right lower extremity, strength was 5/5 except at the right ankle dorsiflexor, which is at least 4+ over 5 and again demonstrated give-way weakness. SENSORY: Patient reports diminution to pinprick/light touch involving the right upper and lower extremity as compared to the left. REFLEXES: The patient is areflexic throughout. Plantar response is mute bilaterally. Guerrero's is absent. COORDINATION: [id number], [id number] movements are intact. Rapid movements are symmetric with finger tapping, foot tapping was mildly slower on the right. DIAGNOSTIC TESTING: Patient had a CT scan of brain completed without contrast yesterday which demonstrated atrophy, out of proportion to the patient's stated age, which may be related to his history of EtOH abuse. Carotid ultrasound demonstrated no significant stenosis on either side. Lab work demonstrated a white blood count of 5.9, hemoglobin 11.7, platelet count 256. Sodium 135, potassium 3.9, BUN 37 with a creatinine 1.46. Calcium 9.0. Magnesium 1.6. ALT 21, AST 12. INR 1.2. Troponin has been as high as 0.178. IMPRESSION: 1. Abrupt onset of right face/arm/leg weakness/numbness which developed while the patient was on the toilet following bowel movement/urinating. Etiology may be cardioembolic in nature versus small vessel disease as carotid ultrasound demonstrated no significant stenosis on either side. With the event occurring associated with a potential Valsalva maneuver, shunt (PFO) that should be excluded. The patient's risk factors for stroke include hypertension, diabetes mellitus, hyperlipidemia, obesity, previous stroke, ischemic cardiomyopathy, and male sex. The patient was on Plavix and aspirin 81 mg daily at the time of this event. 2. Extensive cardiac history with ischemic cardiomyopathy, ejection fraction of less than 20% with severe global left ventricular hypokinesis per echocardiogram of June 2018, multiple coronary stents/myocardial infarctions and history of ventricular tachycardia status post ICD placement. 3. Acute on chronic congestive heart failure/chronic kidney disease, prompting this hospitalization. 4. History of deep venous thrombosis, previously on Eliquis. 5. History of stroke with right hemiparesis, status post tPA in April 2018, the patient reports residual including mild right-sided weakness and word- finding difficulties. 6. Depression/anxiety. 7. Obstructive sleep apnea, noncompliant with CPAP. 8. Elevated troponin, defer to your expertise. 9. History of essential tremor, maintained on Mysoline and following with Neurology on outpatient basis. RECOMMENDATIONS: 1. I discussed the patient's case with the patient, his at the bedside, nursing staff, and Dr. Gallagher. 2. We will obtain MRI of the brain with diffusion-weighted images if his ICD is compatible, if not we will pursue followup CT of the brain in the morning. Initial CT of the brain demonstrated no acute pathology. 3. Carotid ultrasound demonstrated no significant stenosis on either side. 4. The patient is maintained on telemetry and ICD has been interrogated to see if there is a previous evidence of atrial fibrillation. 5. We will continue on Plavix and aspirin on 325 mg q. day for now, anticoagulation may need to be considered depending on results of the patient's workup. 6. Transesophageal echocardiogram. 7. Risk factor modification, the patient is maintained on Crestor. 8. Avoid hypotension/hyperglycemia. 9. With the patient's young age and previous history of DVT, we will obtain hypercoagulable workup. 10.Will follow with you. Critical care time spent in evaluation 65 minutes. MMAMBROSEL / CHRISTINEN: [id number] / ARMAND
== END 2018-11-10 13:29 | disposition home or self-care (01) | DRG 291 ==
LOC: EC 10:24 → 3SCARD 13:47
PROVIDERS: ADMIT Internal Medicine; ATTEND Internal Medicine
DX: I13.0 Hypertensive heart and chronic kidney disease with heart failure and stage 1 through stage 4 chronic kidney disease, or unspecified chronic kidney disease (principal); I50.23 Acute on chronic systolic (congestive) heart failure; E87.1 Hypo-osmolality and hyponatremia; I47.2 Ventricular tachycardia; I69.351 Hemiplegia and hemiparesis following cerebral infarction affecting right dominant side; E11.22 Type 2 diabetes mellitus with diabetic chronic kidney disease; I95.9 Hypotension, unspecified; E11.42 Type 2 diabetes mellitus with diabetic polyneuropathy; E11.43 Type 2 diabetes mellitus with diabetic autonomic (poly)neuropathy; N18.3 Chronic kidney disease, stage 3 (moderate); K31.84 Gastroparesis; E11.65 Type 2 diabetes mellitus with hyperglycemia; I25.10 Atherosclerotic heart disease of native coronary artery without angina pectoris; I25.5 Ischemic cardiomyopathy; R40.2362 Coma scale, best motor response, obeys commands, at arrival to emergency department; R40.2142 Coma scale, eyes open, spontaneous, at arrival to emergency department; R40.2252 Coma scale, best verbal response, oriented, at arrival to emergency department; K21.9 Gastro-esophageal reflux disease without esophagitis; J45.909 Unspecified asthma, uncomplicated; E78.5 Hyperlipidemia, unspecified; G47.33 Obstructive sleep apnea (adult) (pediatric); F32.9 Major depressive disorder, single episode, unspecified; F43.10 Post-traumatic stress disorder, unspecified; M19.90 Unspecified osteoarthritis, unspecified site; K29.50 Unspecified chronic gastritis without bleeding; M75.101 Unspecified rotator cuff tear or rupture of right shoulder, not specified as traumatic; M54.9 Dorsalgia, unspecified; G89.29 Other chronic pain; L40.9 Psoriasis, unspecified; G43.909 Migraine, unspecified, not intractable, without status migrainosus; G25.0 Essential tremor; R09.02 Hypoxemia; R77.8 Other specified abnormalities of plasma proteins; K44.9 Diaphragmatic hernia without obstruction or gangrene; I25.2 Old myocardial infarction; F10.11 Alcohol abuse, in remission; Z79.02 Long term (current) use of antithrombotics/antiplatelets; Z79.82 Long term (current) use of aspirin; Z79.4 Long term (current) use of insulin; Z79.899 Other long term (current) drug therapy; Z91.5 Personal history of self-harm; Z86.14 Personal history of Methicillin resistant Staphylococcus aureus infection; Z86.718 Personal history of other venous thrombosis and embolism; Z90.49 Acquired absence of other specified parts of digestive tract; Z95.5 Presence of coronary angioplasty implant and graft; Z90.79 Acquired absence of other genital organ(s); Z91.19 Patient's noncompliance with other medical treatment and regimen; Z88.1 Allergy status to other antibiotic agents; Z91.041 Radiographic dye allergy status; Z88.5 Allergy status to narcotic agent; Z88.0 Allergy status to penicillin; Z91.013 Allergy to seafood; Z88.8 Allergy status to other drugs, medicaments and biological substances; Z91.018 Allergy to other foods; Z95.810 Presence of automatic (implantable) cardiac defibrillator; Z82.49 Family history of ischemic heart disease and other diseases of the circulatory system; Z83.3 Family history of diabetes mellitus; Z82.0 Family history of epilepsy and other diseases of the nervous system; Z80.1 Family history of malignant neoplasm of trachea, bronchus and lung; Z87.01 Personal history of pneumonia (recurrent); Z87.2 Personal history of diseases of the skin and subcutaneous tissue
CPT/HCPCS: 36415; 70450; 71045; 80048; 80053; 80061; 81241; 83735; 83880; 84484; 85025; 85610; 85730; 93005; 93880; 96374; 99285

== ENCOUNTER 2018-11-18 00:04 | Emergency (ER) | payer MEDICARE, OTHER ==
[2018-11-18 00:10] VITALS: TEMP 97.7
--- NOTE | 2018-11-18 00:54 | ED ---
Chest Pain HPI - General Chief Complaint: Chest Pain Stated Complaint: Chest Pain Time Seen by Provider: 11/18/18 00:53 Source: patient Mode of arrival: ambulatory - History of Present Illness Initial Comments: Ti Dunham is a 42-year-old male with extensive past medical history most significant for very poorly controlled insulin-dependent diabetes as well as coronary artery disease with congestive heart failure for which he has multiple admissions to the hospital. It has been determined from [facility] that patient is not a candidate for CABG at this time and that they have no further advanced options for him so patient has been following with cardiology locally. Patient has been admitted the hospital twice in the past 2 weeks for chest pain and heart failure. Patient reports that he was in his usual state of health today he went grocery shopping upon returning home he carried all of the groceries and after doing so he felt very short of breath so he tried to sit down and rest but continued to feel short of breath at which time he decided to come to the ER for reevaluation. Patient denies any exertional chest pain worse than his baseline. Patient did not take his night medications because he was feeling well and came to the ER instead. - Related Data Home Medications Medication Instructions Recorded Confirmed Clopidogrel [Plavix] 75 mg PO QAM 12/03/17 11/14/18 Digoxin [Digitek] 125 mcg PO DAILY 02/01/18 11/14/18 Spironolactone [Aldactone] 25 mg PO DAILY 02/01/18 11/14/18 Albuterol Inhaler [Ventolin Hfa 2 puff INHALATION RT-Q6H PRN 04/01/18 11/14/18 Inhaler] Pantoprazole [Protonix] 40 mg PO DAILY 04/01/18 11/14/18 Primidone [Mysoline] 100 mg PO BID 04/01/18 11/14/18 Lisinopril [Zestril] 5 mg PO DAILY 06/06/18 11/14/18 Aspirin EC [Ecotrin Low Dose] 81 mg PO DAILY 07/20/18 11/14/18 Isosorbide Mononitrate [Imdur] 120 mg PO DAILY 10/31/18 11/14/18 Torsemide [Demadex] 20 mg PO BID 10/31/18 11/14/18 Carvedilol [Coreg] 6.25 mg PO BID 11/06/18 11/14/18 Ranolazine [Ranexa] 500 mg PO BID 11/06/18 11/14/18 Insulin Aspart [NovoLOG Flexpen] 16 units SQ AC-TID 11/08/18 11/14/18 Insulin Glargine,Hum.rec.anlog 50 unit SQ HS 11/08/18 11/14/18 [Basaglar Kwikpen U-100] Metoprolol Tartrate [Lopressor] 50 mg PO BID 11/08/18 11/14/18 Nitroglycerin Sl Tabs [Nitrostat] 0.4 mg SUBLINGUAL Q5M PRN 11/08/18 11/14/18 Tamsulosin HCl [Flomax] 0.4 mg PO DAILY 11/08/18 11/14/18 hydrOXYzine PAMOATE 50 mg PO HS PRN 11/14/18 11/14/18 Previous Rx's Medication Instructions Recorded DULoxetine HCL [Cymbalta] 60 mg PO BID capsule. 05/10/18 Atorvastatin [Lipitor] 40 mg PO HS #30 tablet 11/10/18 Allergies Allergy/AdvReac Type Severity Reaction Status Date / Time erythromycin base Allergy Severe Rash/Hives Verified 11/14/18 07:00 [Erythromycin Base] cephalexin monohydrate Allergy Unknown Rash/Hives Verified 11/14/18 07:00 [From Keflex] codeine Allergy Unknown Unknown Verified 11/14/18 07:00 meclizine Allergy Unknown Unknown Verified 11/14/18 07:00 Penicillins Allergy Unknown Rash/Hives Verified 11/14/18 07:00 shellfish derived Allergy Unknown Anaphylaxis Verified 11/14/18 07:00 Fish Containing Products Allergy Anaphylaxis Verified 11/14/18 07:00 [Fish] Iodinated Contrast- Oral and Allergy Anaphylaxis Verified 11/14/18 07:00 IV Dye naproxen AdvReac Unknown Compromises Verified 11/14/18 07:00 Kidney Function atorvastatin calcium AdvReac Myalgia Verified 11/14/18 07:00 [From Lipitor] hydrocodone [From [place]] AdvReac Rapid Verified 11/14/18 07:00 Heart Rate Review of Systems ROS Statement: Those systems with pertinent positive or pertinent negative responses have been documented in the HPI. ROS Other: All systems not noted in ROS Statement are negative. EKG Findings - EKG Comments: EKG Findings:: EKG was obtained at 12:28 AM, rate is 117, rhythm is ventricularly paced, NE 174, QRS 94, QTC is 426no acute ST elevations or depressions no evidence of acute ischemia or infarction. Past Medical History Past Medical History: Asthma, Coronary Artery Disease (CAD), Chest Pain / Angina, Heart Failure, CVA/TIA, Diabetes Mellitus, Deep Vein Thrombosis (DVT), GERD/Reflux, Hyperlipidemia, Hypertension, Myocardial Infarction (IA), Osteoarthritis (OA), Pneumonia, Skin Disorder, Sleep Apnea/CPAP/BIPAP Additional Past Medical History / Comment(s): multiple vessel CAD, ischemic cardiomyopathy, diabetic neuropathy bilateral hands and feet, hypertensive cardiovascular disease, SHELIA with no device, chronic gastritis, degenerative disc disease, chronic back pain, depression with hx of suicide attempts, gastroparesis, psoriasis, UTI, migraines, TIA, PUD, hiatal hernia, L rotator cuff tear, bronchitis, pseudoaneurysm L groin post procedure. 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 Last Myocardial Infarction Date:: October 2017 History of Any Multi-Drug Resistant Organisms: MRSA Date of last positivie culture/infection: 11/05/17 (Culture done at [facility]) MDRO Source:: legs Past Surgical History: AICD, Appendectomy, Cholecystectomy, Heart Catheterization With Stent, Hernia Repair Additional Past Surgical History / Comment(s): Pt has had multiple cardiac procedures- caths/stents/PTCA, last stent placed at [facility] -October2017, S[place]ANNAH, R inguinal hernia repair, umbilical hernia repair, right orchiectomy due to necrosis, right hand surgery r/t injury, colonoscopy, cystoscopy (scraped bladder parrish), stents 10/2017, Past Anesthesia/Blood Transfusion Reactions: No Reported Reaction Additional Past Anesthesia/Blood Transfusion Reaction / Comment(s): . Date of Last Stent Placement:: 10/2017 Type of Cardiac Device: Biventricular Pacemaker, AICD Device Placement Date:: 09/19/15 Past Psychological History: Anxiety, Depression, PTSD Smoking Status: Never smoker Past Alcohol Use History: None Reported Past Drug Use History: None Reported - Past Family History Mother Family Medical History: Coronary Artery Disease (CAD), Myocardial Infarction (IA) Additional Family Medical History / Comment(s): 7 IA and faulty heart valve. Pt does not know the age when mother had her IA's. Father History Unknown: Yes Additional Family Medical History / Comment(s): Does not know who father is. Brother(s) Family Medical History: Cancer, Congestive Heart Failure (CHF), Myocardial Infarction (IA) Additional Family Medical History / Comment(s): Parkinsons. Pt does not know at what age his brother had an IA. Patient's other brother has lung CA Patient has Family Medical History: No Reported History Additional Family Medical History / Comment(s): There is a strong family history for heart disease, hypertension, and diabetes. General Exam - General Exam Comments Initial Comments: Physical Exam GENERAL: Chronically ill-appearing HENT: Normocephalic, Atraumatic. EYES: PERRL, EOMI PULMONARY: Unlabored respirations. No audible rales rhonchi or wheezing was noted. CARDIOVASCULAR: Tachycardic, regular ABDOMEN: Soft and nontender with normal bowel sounds. SKIN: Skin is clear with no lesions or rashes and otherwise unremarkable. : Deferred NEUROLOGIC: Patient is alert and oriented x3. Moving all extremities spontaneously MUSCULOSKELETAL: Normal extremities with adequate strength and full range of motion. No lower extremity swelling or edema. No calf tenderness. PSYCHIATRIC: Situational depression Course Vital Signs 11/18/18 11/18/18 11/18/18 00:07 03:10 03:58 Temperature 97.7 F Pulse Rate 121 H 107 H 97 Respiratory 17 20 22 Rate Blood Pressure 176/93 150/100 O2 Sat by Pulse 97 100 96 Oximetry Chest Pain [facility] The patient was seen and evaluated, history is obtained from the patient and review of medical record A 42-year-old gentleman with poorly controlled diabetes congestive heart failure coronary artery disease is presenting with shortness of breath after exertion Labs and imaging were ordered x-ray and EKG is unchanged from previous aside from tachycardia however I do not want to give patient fluid bolus as he has very poor EF and recent admission for CHF. Patient is drinking water at bedside. Labs resulted with hyperglycemia, kidney function at baseline CBC at baseline Patient's troponin only mildly elevated at 0.05 this is the lowest it has been in 2 weeks. Patient does not have chest pain only shortness of breath. At this time I feel the patient is stable for discharge home and outpatient follow-up. Disposition Clinical Impression: Exertional dyspnea, Chronic chest pain Disposition: HOME SELF-CARE Condition: Stable Instructions (If sedation given, give patient instructions): Chest Pain (ED) Additional Instructions: Contact your drop forger at [facility] for follow up Is patient prescribed a controlled substance at d/c from ED?: No Referrals: Junie New MD [Primary Care Provider] - 1-2 days
[2018-11-18 01:42] LABS: Basophils # (A) 0.1 k/uL (0-0.2); Basophils % (A) 1 %; Eosinophils # (A) 0.1 k/uL (0-0.7); Eosinophils % (A) 2 %; HGB 11.6 gm/dL (13.0-17.5); Hypochromasia Moderate; Lymphocytes # (A) 1.3 k/uL (1.0-4.8); Lymphocytes % (A) 18 %; MCH 25.6 pg (25.0-35.0); MCHC 30.5 g/dL (31.0-37.0); MCV 83.9 fL (80.0-100.0); Mean Platelet Volume 6.8; Monocytes # (A) 0.4 k/uL (0-1.0); Monocytes % (A) 5 %; Neutrophils # (A) 5.1 k/uL (1.3-7.7); Neutrophils % (A) 73 %; Platelet Count 291 k/uL (150-450); Poikilocytosis Slight; RBC 4.53 m/uL (4.30-5.90); RDW 15.7 % (11.5-15.5)
--- NOTE | 2018-11-18 01:49 | XR ---
EXAM: XR Chest, 2 Views CLINICAL HISTORY: ITS.REASON XR Reason: Chest Pain TECHNIQUE: Frontal and lateral views of the chest. COMPARISON: Chest x-ray 11/14/2018. CTA chest 11/14/2018. FINDINGS: Lungs: No focal pulmonary infiltrates or consolidations. No evidence of overt congestive failure or pulmonary edema. Pleural space: Small right pleural effusion. No evidence of pneumothorax. Heart: Mild cardiomegaly. Coronary arterial calcifications or possible stents. Mediastinum: Unremarkable. Bones/joints: Imaged bony thorax is unremarkable. Tubes, lines and devices: Cardiac pacer/defibrillator device with multiple leads remains unchanged. No significant change as compared to chest radiograph 11/14/2018. IMPRESSION: Mild cardiomegaly. No evidence of acute cardiopulmonary disease or overt congestive failure. Small right pleural effusion.
[2018-11-18 01:50] LABS: Partial Thromboplastin Time 22.3 sec (22.0-30.0)
[2018-11-18 02:00] LABS: Albumin 3.7 g/dL (3.5-5.0); Calcium 8.9 mg/dL (8.4-10.2); Magnesium 1.8 mg/dL (1.6-2.3); Potassium 4.8 mmol/L (3.5-5.1); Total Bilirubin 0.5 mg/dL (0.2-1.3); Total Protein 6.1 g/dL (6.3-8.2)
[2018-11-18] MEDS ORDERED: INSULIN ASPART (NovoLOG) 100 UNIT/ML VIAL SQ ONE (02:32)
[2018-11-18 02:54] LABS: Glucose,Whole Blood 451 mg/dL (75-99)
[2018-11-18 03:57] LABS: Glucose,Whole Blood 414 mg/dL (75-99)
[2018-11-18 04:01] VITALS: BP 150/100; PULSE 97; RESP 22
== END 2018-11-18 03:58 | disposition home or self-care (01) ==
LOC: EC 00:04
DX: G89.29 Other chronic pain (principal); R07.9 Chest pain, unspecified; R06.09 Other forms of dyspnea; E11.65 Type 2 diabetes mellitus with hyperglycemia; E11.40 Type 2 diabetes mellitus with diabetic neuropathy, unspecified; I11.0 Hypertensive heart disease with heart failure; I50.9 Heart failure, unspecified; I25.2 Old myocardial infarction; J45.909 Unspecified asthma, uncomplicated; G47.30 Sleep apnea, unspecified; K21.9 Gastro-esophageal reflux disease without esophagitis; Z79.02 Long term (current) use of antithrombotics/antiplatelets; Z79.82 Long term (current) use of aspirin; Z79.4 Long term (current) use of insulin; Z79.899 Other long term (current) drug therapy; Z88.1 Allergy status to other antibiotic agents; Z88.0 Allergy status to penicillin; Z88.5 Allergy status to narcotic agent; Z91.013 Allergy to seafood; Z91.041 Radiographic dye allergy status; Z88.8 Allergy status to other drugs, medicaments and biological substances; Z88.6 Allergy status to analgesic agent; Z86.718 Personal history of other venous thrombosis and embolism; Z95.810 Presence of automatic (implantable) cardiac defibrillator; Z95.5 Presence of coronary angioplasty implant and graft; Z86.73 Personal history of transient ischemic attack (TIA), and cerebral infarction without residual deficits
CPT/HCPCS: 36415; 71046; 80053; 83735; 84484; 85025; 85610; 85730; 93005; 99285

== ENCOUNTER 2018-11-20 11:59 | Emergency (ER) | payer MEDICARE, OTHER ==
--- NOTE | 2018-11-20 12:23 | ED ---
General Adult HPI - General Stated complaint: CHEST PAIN Time Seen by Provider: 11/20/18 12:08 Source: patient, EMS, RN notes reviewed, old records reviewed Mode of arrival: EMS Limitations: no limitations - History of Present Illness Initial comments: 42 -year-old male presenting for evaluation of chest heaviness. Symptoms have been ongoing for the past 24 hours. Patient does have previous coronary artery disease, he states he does not feel this is his heart. He went to urgent care for evaluation and was transferred to the emergency department. He's had some nausea. He says his blood sugar has also been somewhat elevated. Denies dyspnea. Denies cough or fever. He has been recently seen at this hospital with similar symptoms. - Related Data Home Medications Medication Instructions Recorded Confirmed Clopidogrel [Plavix] 75 mg PO QAM 12/03/17 11/20/18 Digoxin [Digitek] 125 mcg PO DAILY 02/01/18 11/20/18 Spironolactone [Aldactone] 25 mg PO DAILY 02/01/18 11/20/18 Albuterol Inhaler [Ventolin Hfa 2 puff INHALATION RT-Q6H PRN 04/01/18 11/20/18 Inhaler] Pantoprazole [Protonix] 40 mg PO DAILY 04/01/18 11/20/18 Primidone [Mysoline] 100 mg PO BID 04/01/18 11/20/18 Lisinopril [Zestril] 5 mg PO DAILY 06/06/18 11/20/18 Aspirin EC [Ecotrin Low Dose] 81 mg PO DAILY 07/20/18 11/20/18 Isosorbide Mononitrate [Imdur] 120 mg PO DAILY 10/31/18 11/20/18 Torsemide [Demadex] 20 mg PO BID 10/31/18 11/20/18 Carvedilol [Coreg] 6.25 mg PO BID 11/06/18 11/20/18 Ranolazine [Ranexa] 500 mg PO BID 11/06/18 11/20/18 Insulin Aspart [NovoLOG Flexpen] 16 units SQ AC-TID 11/08/18 11/20/18 Insulin Glargine,Hum.rec.anlog 50 unit SQ HS 11/08/18 11/20/18 [Basaglar Kwikpen U-100] Metoprolol Tartrate [Lopressor] 50 mg PO BID 11/08/18 11/20/18 Nitroglycerin Sl Tabs [Nitrostat] 0.4 mg SUBLINGUAL Q5M PRN 11/08/18 11/20/18 Tamsulosin HCl [Flomax] 0.4 mg PO DAILY 11/08/18 11/20/18 hydrOXYzine PAMOATE 50 mg PO HS PRN 11/14/18 11/20/18 Previous Rx's Medication Instructions Recorded DULoxetine HCL [Cymbalta] 60 mg PO BID capsule. 05/10/18 Atorvastatin [Lipitor] 40 mg PO HS #30 tablet 11/10/18 Allergies Allergy/AdvReac Type Severity Reaction Status Date / Time erythromycin base Allergy Severe Rash/Hives Verified 11/20/18 12:36 [Erythromycin Base] cephalexin monohydrate Allergy Unknown Rash/Hives Verified 11/20/18 12:36 [From Keflex] codeine Allergy Unknown Unknown Verified 11/20/18 12:36 meclizine Allergy Unknown Unknown Verified 11/20/18 12:36 Penicillins Allergy Unknown Rash/Hives Verified 11/20/18 12:36 shellfish derived Allergy Unknown Anaphylaxis Verified 11/20/18 12:36 Fish Containing Products Allergy Anaphylaxis Verified 11/20/18 12:36 [Fish] Iodinated Contrast- Oral and Allergy Anaphylaxis Verified 11/20/18 12:36 IV Dye naproxen AdvReac Unknown Compromises Verified 11/20/18 12:36 Kidney Function atorvastatin calcium AdvReac Myalgia Verified 11/20/18 12:36 [From Lipitor] hydrocodone [From [facility]] AdvReac Rapid Verified 11/20/18 12:36 Heart Rate Review of Systems ROS Statement: Those systems with pertinent positive or pertinent negative responses have been documented in the HPI. ROS Other: All systems not noted in ROS Statement are negative. Past Medical History Past Medical History: Asthma, Coronary Artery Disease (CAD), Chest Pain / Angina, Heart Failure, CVA/TIA, Diabetes Mellitus, Deep Vein Thrombosis (DVT), GERD/Reflux, Hyperlipidemia, Hypertension, Myocardial Infarction (ME), Osteoarthritis (OA), Pneumonia, Skin Disorder, Sleep Apnea/CPAP/BIPAP Additional Past Medical History / Comment(s): multiple vessel CAD, ischemic cardiomyopathy, diabetic neuropathy bilateral hands and feet, hypertensive cardiovascular disease, SHELIA with no device, chronic gastritis, degenerative disc disease, chronic back pain, depression with hx of suicide attempts, gastroparesis, psoriasis, UTI, migraines, TIA, PUD, hiatal hernia, L rotator cuff tear, bronchitis, pseudoaneurysm L groin post procedure. 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 Date of Last Stent Placement:: 10/2017 Type of Cardiac Device: Biventricular Pacemaker, AICD Device Placement Date:: 09/19/15 Past Psychological History: Anxiety, Depression, PTSD Smoking Status: Never smoker Past Alcohol Use History: None Reported Past Drug Use History: None Reported - Past Family History Mother Family Medical History: Coronary Artery Disease (CAD), Myocardial Infarction (ME) Additional Family Medical History / Comment(s): 7 ME and faulty heart valve. Pt does not know the age when mother had her ME's. Father History Unknown: Yes Additional Family Medical History / Comment(s): Does not know who father is. Brother(s) Family Medical History: Cancer, Congestive Heart Failure (CHF), Myocardial Infarction (ME) Additional Family Medical History / Comment(s): Parkinsons. Pt does not know at what age his brother had an ME. Patient's other brother has lung CA Patient has Family Medical History: No Reported History Additional Family Medical History / Comment(s): There is a strong family history for heart disease, hypertension, and diabetes. General Exam Limitations: no limitations General appearance: alert, in no apparent distress Head exam: Present: atraumatic, normocephalic Eye exam: Present: normal appearance, PERRL ENT exam: Present: normal exam Neck exam: Present: normal inspection. Absent: tenderness, meningismus Respiratory exam: Present: normal lung sounds bilaterally. Absent: respiratory distress, wheezes Cardiovascular Exam: Present: regular rate, normal rhythm, systolic murmur GI/Abdominal exam: Present: soft. Absent: distended, tenderness, guarding Extremities exam: Present: pedal edema. Absent: calf tenderness Back exam: Present: normal inspection, full ROM Neurological exam: Present: alert, oriented X3 Psychiatric exam: Present: normal affect, normal mood Skin exam: Present: warm, intact, pallor. Absent: cyanosis, diaphoretic Course Vital Signs 11/20/18 11/20/18 11/20/18 12:14 12:15 12:30 Pulse Rate 60 61 60 Respiratory 18 20 22 Rate Blood Pressure 85/56 85/56 82/47 O2 Sat by Pulse 97 95 Oximetry 11/20/18 11/20/18 11/20/18 13:00 13:15 13:24 Pulse Rate 55 L 56 L Respiratory 20 20 Rate Blood Pressure 82/52 85/58 85/58 O2 Sat by Pulse Oximetry 11/20/18 11/20/18 11/20/18 13:30 13:45 14:00 Pulse Rate 54 L 52 L 57 L Respiratory 20 17 19 Rate Blood Pressure 91/32 91/58 91/61 O2 Sat by Pulse Oximetry 11/20/18 11/20/18 11/20/18 14:40 14:50 15:00 Pulse Rate 49 L 49 L 125 H Respiratory 12 24 Rate Blood Pressure 67/42 57/43 80/65 O2 Sat by Pulse 99 Oximetry 11/20/18 11/20/18 11/20/18 15:20 15:27 15:30 Pulse Rate 42 L Respiratory 20 23 Rate Blood Pressure 124/64 124/64 119/95 O2 Sat by Pulse 100 Oximetry 11/20/18 11/20/18 11/20/18 15:35 15:40 15:45 Pulse Rate 49 L Respiratory 22 20 20 Rate Blood Pressure 59/39 79/40 129/72 O2 Sat by Pulse 76 L 73 L Oximetry 11/20/18 11/20/18 11/20/18 15:50 15:55 16:00 Pulse Rate 60 118 H 121 H Respiratory Rate Blood Pressure 137/72 60/24 187/26 O2 Sat by Pulse 99 78 L 81 L Oximetry 11/20/18 11/20/18 11/20/18 16:05 16:10 16:15 Pulse Rate 85 53 L 82 Respiratory 18 16 26 H Rate Blood Pressure 156/117 116/41 188/86 O2 Sat by Pulse 100 100 100 Oximetry 11/20/18 11/20/18 11/20/18 16:20 16:25 16:40 Pulse Rate 70 56 L Respiratory 18 17 Rate Blood Pressure 135/86 97/72 80/48 O2 Sat by Pulse Oximetry 11/20/18 17:00 Pulse Rate 57 L Respiratory 18 Rate Blood Pressure 80/48 O2 Sat by Pulse 97 Oximetry - Reevaluation(s) Reevaluation #1: 11/20/18 [address] Julian rivera for cardiology, this patient is known. He recommends transfer to [facility]. Family also requesting transferred to [facility]. EKG Findings - EKG Comments: EKG Findings:: EKG: Atrial sensed ventricular paced rhythm obtained at 1220, rate of 61, FL interval 180, QRS duration 94, QTC 418. EKG repeated after initial return of spontaneous circulation 1525, atrial sensed ventricular paced rhythm no ST segment elevation, there is concern for both inferior and lateral depression although minimal. Rate is 73, FL interval 196, QRS duration 104, QTC 480. Repeat EKG after second return of spontaneous circulation, atrial sensed ventricular paced rhythm, rate of 72, FL interval 190, QRS duration 104, QTC 420 unchanged compared to prior. Procedures - Central Line Placement Right IJ Consent Obtained: emergent situation Patient Placed on Monitor/Pulse Ox: Yes MD Prep: gloves Central Line Prep: Chlorhexidine scrub Ultrasound Used for Placement: No Central Line Lumen Inserted: triple Central Line Position: good blood return, all ports aspirated, flushed, capped, sutured in place with nylon Dressing Applied: Tegaderm Patient Tolerated Procedure: well Complications: other (Crash line placed during resuscitation) - Intubation Laryngoscope: Nadia Size: 3 ET Tube Size: 7.5 ET Tube Uncuffed: No Tube Secured Depth (cm): 24 Tube Secured Location: lips Tube Placement Confirmation: visualized tube passing through cords, equal breath sounds bilaterally, no breath sounds over epigastrium, confirmation by capnometry Patient Tolerated Procedure: well Intubation Complications: none Medical Decision Making - Medical Decision Making 42-year-old male presenting with vague chest pain, initial EKG atrial sensed ventricular paced rhythm. He has a marginal blood pressure. He appears pale. Patient does have complicated past medical history. Chest x-rays obtained, shows cardiomegaly, no eva CHF. He has normal CBC, he has hemoglobin 11.7 which is stable for this patient. He has a creatinine 1.56. Troponin elevation 0.059 which is chronic for this patient. While in the emergency department patient does develop respiratory distress and subsequently has PEA cardiac arrest. Resuscitation was performed by ACLS protocol with return of spontaneous circulation. Please see nursing documentation for exact details of resuscitation. Patient was intubated by myself with equal breath sounds bilaterally. He subsequently had 2 additional cardiac arrest with return of spontaneous circulation. Bedside echo shows very poor ejection fraction, no effusion or tamponade. Post resuscitation patient is continued on norepinephrine and epinephrine infusion. He started on a Versed drip. Heparin is held secondary to prolonged chest compressions and concern for hemorrhage. Patient's family is requesting transfer to [facility]. I did talk with quarter seamer Dr. Barajas, who will accept transfer. Patient is transported by [facility]. Patient has triple lumen right femoral central line, he is a right tibial IO, and right external jugular 20-gauge. He's intubated with a 7.5, 26cm at the lip. Repeat Laboratory studies are sent these are pending. Multiple EKGs obtained, all showing atrial sensed ventricular paced rhythm. During all 3 resuscitations, patient remained in PEA. Diagnosis: PEA arrest, cardiogenic shock, return of spontaneous circulation. - Lab Data Result diagrams: 11/20/18 16:19 11/20/18 16:19 Lab Results 11/20/18 11/20/18 11/20/18 Range/Units 12:10 12:10 12:10 WBC 6.7 (3.8-10.6) k/uL RBC 4.50 (4.30-5.90) m/uL Hgb 11.7 L (13.0-17.5) gm/dL Hct 37.7 L (39.0-53.0) % MCV 83.8 (80.0-100.0) fL MCH 26.1 (25.0-35.0) pg MCHC 31.1 (31.0-37.0) g/dL RDW 16.3 H (11.5-15.5) % Plt Count 261 (150-450) k/uL Neutrophils % 68 % Lymphocytes % 20 % Monocytes % 6 % Eosinophils % 3 % Basophils % 1 % Neutrophils # 4.6 (1.3-7.7) k/uL Lymphocytes # 1.3 (1.0-4.8) k/uL Monocytes # 0.4 (0-1.0) k/uL Eosinophils # 0.2 (0-0.7) k/uL Basophils # 0.1 (0-0.2) k/uL Manual Slide Review Polychromasia Hypochromasia Slight Poikilocytosis Slight Poikilocytosis (manual Anisocytosis Slight PT 11.6 (9.0-12.0) sec INR 1.1 (<1.2) APTT 22.5 (22.0-30.0) sec Sodium 133 L (137-145) mmol/L Potassium 4.6 (3.5-5.1) mmol/L Chloride 100 (98-107) mmol/L Carbon Dioxide 22 (22-30) mmol/L Anion Gap 11 mmol/L BUN 32 H (9-20) mg/dL Creatinine 1.56 H (0.66-1.25) mg/dL Est GFR (CKD-EPI)AfAm 63 (>60 ml/min/1.73 sqM) Est GFR (CKD-EPI)NonAf 54 (>60 ml/min/1.73 sqM) Glucose 314 H (74-99) mg/dL Lactic Ac Sepsis Rflx Plasma Lactic Acid Timbo (0.7-2.0) mmol/L Calcium 8.9 (8.4-10.2) mg/dL Magnesium 1.7 (1.6-2.3) mg/dL Total Bilirubin 0.6 (0.2-1.3) mg/dL AST 17 (17-59) U/L ALT 20 L (21-72) U/L Alkaline Phosphatase 92 (38-126) U/L Troponin I (0.000-0.034) ng/mL Total Protein 5.6 L (6.3-8.2) g/dL Albumin 3.2 L (3.5-5.0) g/dL 11/20/18 11/20/18 11/20/18 Range/Units 12:10 16:19 16:19 WBC (3.8-10.6) k/uL RBC (4.30-5.90) m/uL Hgb (13.0-17.5) gm/dL Hct (39.0-53.0) % MCV (80.0-100.0) fL MCH (25.0-35.0) pg MCHC (31.0-37.0) g/dL RDW (11.5-15.5) % Plt Count (150-450) k/uL Neutrophils % % Lymphocytes % % Monocytes % % Eosinophils % % Basophils % % Neutrophils # (1.3-7.7) k/uL Lymphocytes # (1.0-4.8) k/uL Monocytes # (0-1.0) k/uL Eosinophils # (0-0.7) k/uL Basophils # (0-0.2) k/uL Manual Slide Review Polychromasia Hypochromasia Poikilocytosis Poikilocytosis (manual Anisocytosis PT (9.0-12.0) sec INR (<1.2) APTT (22.0-30.0) sec Sodium 133 L (137-145) mmol/L Potassium 4.7 (3.5-5.1) mmol/L Chloride 101 (98-107) mmol/L Carbon Dioxide 18 L (22-30) mmol/L Anion Gap 14 mmol/L BUN 34 H (9-20) mg/dL Creatinine 2.07 H (0.66-1.25) mg/dL Est GFR (CKD-EPI)AfAm 44 (>60 ml/min/1.73 sqM) Est GFR (CKD-EPI)NonAf 38 (>60 ml/min/1.73 sqM) Glucose 324 H (74-99) mg/dL Lactic Ac Sepsis Rflx Plasma Lactic Acid Timbo 6.0 H* (0.7-2.0) mmol/L Calcium 9.8 (8.4-10.2) mg/dL Magnesium (1.6-2.3) mg/dL Total Bilirubin 0.8 (0.2-1.3) mg/dL AST 96 H (17-59) U/L ALT 54 (21-72) U/L Alkaline Phosphatase 96 (38-126) U/L Troponin I 0.059 H* (0.000-0.034) ng/mL Total Protein 5.3 L (6.3-8.2) g/dL Albumin 3.0 L (3.5-5.0) g/dL 11/20/18 11/20/18 Range/Units 16:19 16:46 WBC 15.6 H (3.8-10.6) k/uL RBC 4.76 (4.30-5.90) m/uL Hgb 12.4 L (13.0-17.5) gm/dL Hct 39.7 (39.0-53.0) % MCV 83.6 (80.0-100.0) fL MCH 26.1 (25.0-35.0) pg MCHC 31.2 (31.0-37.0) g/dL RDW 16.3 H (11.5-15.5) % Plt Count 259 (150-450) k/uL Neutrophils % 73 % Lymphocytes % 20 % Monocytes % 4 % Eosinophils % 2 % Basophils % 1 % Neutrophils # 11.4 H (1.3-7.7) k/uL Lymphocytes # 3.1 (1.0-4.8) k/uL Monocytes # 0.6 (0-1.0) k/uL Eosinophils # 0.3 (0-0.7) k/uL Basophils # 0.1 (0-0.2) k/uL Manual Slide Review Performed Polychromasia Present Hypochromasia Moderate Poikilocytosis Slight Poikilocytosis (manual Present Anisocytosis Slight PT (9.0-12.0) sec INR (<1.2) APTT (22.0-30.0) sec Sodium (137-145) mmol/L Potassium (3.5-5.1) mmol/L Chloride (98-107) mmol/L Carbon Dioxide (22-30) mmol/L Anion Gap mmol/L BUN (9-20) mg/dL Creatinine (0.66-1.25) mg/dL Est GFR (CKD-EPI)AfAm (>60 ml/min/1.73 sqM) Est GFR (CKD-EPI)NonAf (>60 ml/min/1.73 sqM) Glucose (74-99) mg/dL Lactic Ac Sepsis Rflx Y Plasma Lactic Acid Timbo (0.7-2.0) mmol/L Calcium (8.4-10.2) mg/dL Magnesium (1.6-2.3) mg/dL Total Bilirubin (0.2-1.3) mg/dL AST (17-59) U/L ALT (21-72) U/L Alkaline Phosphatase (38-126) U/L Troponin I (0.000-0.034) ng/mL Total Protein (6.3-8.2) g/dL Albumin (3.5-5.0) g/dL Critical Care Time Critical Care Time: Yes Total Critical Care Time: 105 Disposition Clinical Impression: Cardiogenic shock, PEA (Pulseless electrical activity), Signs of return of spontaneous circulation, AICD (automatic cardioverter/defibrillator) present Disposition: OTHER INSTITUTION NOT DEFINED Condition: Serious Is patient prescribed a controlled substance at d/c from ED?: No Referrals: Junie New MD [Primary Care Provider] - 1-2 days - Out of Hospital Transfer - Req. Specs Out of Hospital Transfer - Requested Specifics: Cardiac ICU (Transfer to [facility])
[2018-11-20] MEDS ORDERED: SODIUM CHLORIDE 0.9% 500 ML 500 ML IV ONE (12:27)
[2018-11-20 12:28] LABS: Anisocytosis Slight; Basophils # (A) 0.1 k/uL (0-0.2); Basophils % (A) 1 %; Eosinophils # (A) 0.2 k/uL (0-0.7); Eosinophils % (A) 3 %; HCT 37.7 % (39.0-53.0); HGB 11.7 gm/dL (13.0-17.5); Hypochromasia Slight; Lymphocytes # (A) 1.3 k/uL (1.0-4.8); Lymphocytes % (A) 20 %; MCH 26.1 pg (25.0-35.0); MCHC 31.1 g/dL (31.0-37.0); MCV 83.8 fL (80.0-100.0); Mean Platelet Volume 7.8; Monocytes # (A) 0.4 k/uL (0-1.0); Monocytes % (A) 6 %; Neutrophils # (A) 4.6 k/uL (1.3-7.7); Neutrophils % (A) 68 %; Platelet Count 261 k/uL (150-450); Poikilocytosis Slight; RDW 16.3 % (11.5-15.5); WBC 6.7 k/uL (3.8-10.6)
[2018-11-20 12:36] LABS: Albumin 3.2 g/dL (3.5-5.0); Calcium 8.9 mg/dL (8.4-10.2); Magnesium 1.7 mg/dL (1.6-2.3); Potassium 4.6 mmol/L (3.5-5.1); Total Bilirubin 0.6 mg/dL (0.2-1.3); Total Protein 5.6 g/dL (6.3-8.2)
[2018-11-20 13:18] LABS: INR 1.1 (<1.2); Partial Thromboplastin Time 22.5 sec (22.0-30.0); Prothrombin Time 11.6 sec (9.0-12.0)
--- NOTE | 2018-11-20 13:54 | XR ---
EXAMINATION TYPE: XR chest 2V DATE OF EXAM: 11/20/2018 HISTORY: Chest Pain. REFERENCE: Previous study dated 11/18/2018. FINDINGS: There is a bipolar pacemaker place on the left. Heart is mildly enlarged. The lungs are clear. Pleural spaces are clear. IMPRESSION: MILD CARDIOMEGALY.
[2018-11-20] MEDS ORDERED: EPINEPHrine 10 ML SYRINGE (0.1 MG/ML) ONE (14:58)
[2018-11-20] MEDS ORDERED: SODIUM BICARB 8.4% 50 ML SYR (1 MEQ/ML) ONE (14:58)
[2018-11-20] MEDS ORDERED: CALCIUM CHLORIDE 100 MG/ML 10 ML SYRINGE ONE (14:58)
[2018-11-20] MEDS ORDERED: MIDAZOLAM 1 MG/ML 5 ML VIAL IV STA (15:15)
[2018-11-20] MEDS ORDERED: MIDAZOLAM HCL 50 MG in SODIUM CHLORIDE 0.9% 40 ML IV STA (15:27)
[2018-11-20] MEDS ORDERED: HEPARIN SODIUM,PORCINE 5,000 UNIT/ML 1 ML VIAL IV PRN (15:27)
[2018-11-20] MEDS ORDERED: HEPARIN SODIUM,PORCINE 5,000 UNIT/ML 1 ML VIAL IV ONE (15:27)
[2018-11-20] MEDS ORDERED: ASPIRIN 300 MG SUPP RECTAL STA (15:28)
[2018-11-20] MEDS: EPINEPHrine 4 MG in DEXTROSE 5% IN WATER 250 ML IV ONE ×4 (15:30→16:09)
[2018-11-20] MEDS ORDERED: HEPARIN SOD,PORK IN 0.45% NACL 25,000 UNIT in 0.45% NACL 1 250ML.BAG IV SCH (15:30)
[2018-11-20] MEDS ORDERED: NOREPINEPHRINE 4 MG in SODIUM CHLORIDE 0.9% 250 ML IV SCH (15:30)
--- NOTE | 2018-11-20 15:45 | XR ---
EXAMINATION TYPE: XR chest 1V portable DATE OF EXAM: 11/20/2018 COMPARISON: 11/20/2018 HISTORY: Ventilatory dependent respiratory failure. TECHNIQUE: Single frontal view of the chest is obtained. FINDINGS: There is slight cephalad placement of the endotracheal tube that could be advanced approxi mately 3 cm for optimal placement. New opacities are seen of both lungs that given the short-term dev elopment suggests either flash pulmonary edema or obstructive atelectasis. No secondary sign of volum e loss is seen. Pulmonary hemorrhage is an alternative consideration although less likely. Cardiomedi astinal silhouette is enlarged with multilead left-sided cardiac device. IMPRESSION: Endotracheal tube appears slightly cephalad in placement and could be advanced approxima tely 3 cm for optimal placement. New diffuse bilateral but predominantly right-sided airspace disease given its short-term interval development raises suspicion for flash pulmonary edema or obstructive atelectasis.
[2018-11-20] MEDS ORDERED: SODIUM BICARB 8.4% 50 ML SYR (1 MEQ/ML) IV STA (15:58)
[2018-11-20 16:36] LABS: Anisocytosis Slight; Basophils # (A) 0.1 k/uL (0-0.2); Basophils % (A) 1 %; Eosinophils # (A) 0.3 k/uL (0-0.7); Eosinophils % (A) 2 %; HCT 39.7 % (39.0-53.0); HGB 12.4 gm/dL (13.0-17.5); Hypochromasia Moderate; Lymphocytes # (A) 3.1 k/uL (1.0-4.8); Lymphocytes % (A) 20 %; MCH 26.1 pg (25.0-35.0); MCHC 31.2 g/dL (31.0-37.0); MCV 83.6 fL (80.0-100.0); Mean Platelet Volume 7.3; Monocytes # (A) 0.6 k/uL (0-1.0); Monocytes % (A) 4 %; Neutrophils # (A) 11.4 k/uL (1.3-7.7); Neutrophils % (A) 73 %; Platelet Count 259 k/uL (150-450); Poikilocytosis Slight; RBC 4.76 m/uL (4.30-5.90); RDW 16.3 % (11.5-15.5); WBC 15.6 k/uL (3.8-10.6)
[2018-11-20 16:41] LABS: Calcium 9.8 mg/dL (8.4-10.2); Potassium 4.7 mmol/L (3.5-5.1); Total Bilirubin 0.8 mg/dL (0.2-1.3); Total Protein 5.3 g/dL (6.3-8.2)
[2018-11-20 17:03] LABS: Poikilocytosis (M) Present; Polychromasia Present
[2018-11-20 17:07] VITALS: BP 80/48
[2018-11-20 19:58] VITALS: PULSE 57; RESP 18
== END 2018-11-20 17:00 | disposition short-term general hospital (02) ==
LOC: EC 11:59
DX: I46.9 Cardiac arrest, cause unspecified (principal); Z95.810 Presence of automatic (implantable) cardiac defibrillator; R60.0 Localized edema; R79.89 Other specified abnormal findings of blood chemistry; J45.909 Unspecified asthma, uncomplicated; I25.119 Atherosclerotic heart disease of native coronary artery with unspecified angina pectoris; I11.0 Hypertensive heart disease with heart failure; I50.9 Heart failure, unspecified; E11.42 Type 2 diabetes mellitus with diabetic polyneuropathy; E11.43 Type 2 diabetes mellitus with diabetic autonomic (poly)neuropathy; K31.84 Gastroparesis; K21.9 Gastro-esophageal reflux disease without esophagitis; I25.2 Old myocardial infarction; M19.90 Unspecified osteoarthritis, unspecified site; Z88.0 Allergy status to penicillin; Z88.1 Allergy status to other antibiotic agents; Z88.5 Allergy status to narcotic agent; Z88.6 Allergy status to analgesic agent; Z88.8 Allergy status to other drugs, medicaments and biological substances; Z91.013 Allergy to seafood; Z91.041 Radiographic dye allergy status; Z79.02 Long term (current) use of antithrombotics/antiplatelets; Z79.4 Long term (current) use of insulin; Z79.82 Long term (current) use of aspirin; Z79.899 Other long term (current) drug therapy; Z86.73 Personal history of transient ischemic attack (TIA), and cerebral infarction without residual deficits; Z95.5 Presence of coronary angioplasty implant and graft; Z86.14 Personal history of Methicillin resistant Staphylococcus aureus infection; Z82.49 Family history of ischemic heart disease and other diseases of the circulatory system; Z83.3 Family history of diabetes mellitus
CPT/HCPCS: 99291; 99292 ×2; 36569; 31500; 96365; 96361 ×4; 36415; 94002; 93005; 80053; 83605; 83735; 84484; 85025; 85610; 85730; 71045; 71046; J0171 ×2; J2250 ×2

== ENCOUNTER 2018-11-28 10:10 | Inpatient (IN) | payer MEDICARE, OTHER ==
[2018-11-28] MEDS ORDERED: NITROGLYCERIN OINT 1 INCH/GM PACKET TOPICAL STA (10:16)
[2018-11-28] MEDS ORDERED: SODIUM CHLORIDE 0.9% 500 ML 500 ML IV STA (10:16)
[2018-11-28] MEDS ORDERED: ASPIRIN 81 MG PO STA (10:16)
--- NOTE | 2018-11-28 10:56 | ED ---
General Adult HPI - General Chief complaint: Syncope Stated complaint: syncopal Time Seen by Provider: 11/28/18 10:10 Source: patient, EMS, RN notes reviewed Mode of arrival: EMS Limitations: no limitations - History of Present Illness Initial comments: This is a 42-year-old male with an extensive cardiac history. Patient comes in today because he had a syncopal episode at a restaurant. Patient states he felt lightheaded and next thing he knows everybody extending over. Patient complains of chest pain anteriorly and laterally. Patient states he thinks she might of her discomfort when he fell. Patient's not sure if he hit his head or not. Pat ient states he is short of breath. Patient denies any diaphoretic episodes. Patient denies any nausea at this time. Patient denies any abdominal pain. Patient denies any extremity pain. Patient denies any palpitations. Patient does state that he feels extremely lightheaded. - Related Data Home Medications Medication Instructions Recorded Confirmed Clopidogrel [Plavix] 75 mg PO QAM 12/03/17 11/28/18 Digoxin [Digitek] 125 mcg PO DAILY 02/01/18 11/28/18 Spironolactone [Aldactone] 25 mg PO DAILY 02/01/18 11/28/18 Albuterol Inhaler [Ventolin Hfa 2 puff INHALATION RT-Q6H PRN 04/01/18 11/28/18 Inhaler] Pantoprazole [Protonix] 40 mg PO DAILY 04/01/18 11/28/18 Primidone [Mysoline] 100 mg PO BID 04/01/18 11/28/18 Lisinopril [Zestril] 5 mg PO DAILY 06/06/18 11/28/18 Aspirin EC [Ecotrin Low Dose] 81 mg PO DAILY 07/20/18 11/28/18 Isosorbide Mononitrate [Imdur] 120 mg PO DAILY 10/31/18 11/28/18 Torsemide [Demadex] 20 mg PO BID 10/31/18 11/28/18 Carvedilol [Coreg] 6.25 mg PO BID 11/06/18 11/28/18 Ranolazine [Ranexa] 500 mg PO BID 11/06/18 11/28/18 Insulin Aspart [NovoLOG Flexpen] 16 units SQ AC-TID 11/08/18 11/28/18 Insulin Glargine,Hum.rec.anlog 50 unit SQ HS 11/08/18 11/28/18 [Jazz Alves U-100] Metoprolol Tartrate [Lopressor] 50 mg PO BID 11/08/18 11/28/18 Nitroglycerin Sl Tabs [Nitrostat] 0.4 mg SUBLINGUAL Q5M PRN 11/08/18 11/28/18 Tamsulosin HCl [Flomax] 0.4 mg PO DAILY 11/08/18 11/28/18 hydrOXYzine PAMOATE 50 mg PO HS PRN 11/14/18 11/28/18 Previous Rx's Medication Instructions Recorded DULoxetine HCL [Cymbalta] 60 mg PO BID capsule. 05/10/18 Atorvastatin [Lipitor] 40 mg PO HS #30 tablet 11/10/18 Allergies Allergy/AdvReac Type Severity Reaction Status Date / Time erythromycin base Allergy Severe Rash/Hives Verified 11/28/18 10:16 [Erythromycin Base] cephalexin monohydrate Allergy Unknown Rash/Hives Verified 11/28/18 10:16 [From Keflex] codeine Allergy Unknown Unknown Verified 11/28/18 10:16 meclizine Allergy Unknown Unknown Verified 11/28/18 10:16 Penicillins Allergy Unknown Rash/Hives Verified 11/28/18 10:16 shellfish derived Allergy Unknown Anaphylaxis Verified 11/28/18 10:16 Fish Containing Products Allergy Anaphylaxis Verified 11/28/18 10:16 [Fish] Iodinated Contrast- Oral and Allergy Anaphylaxis Verified 11/28/18 10:16 IV Dye naproxen AdvReac Unknown Compromises Verified 11/28/18 10:16 Kidney Function atorvastatin calcium AdvReac Myalgia Verified 11/28/18 10:16 [From Lipitor] hydrocodone [From Harrah] AdvReac Rapid Verified 11/28/18 10:16 Heart Rate Review of Systems ROS Statement: Those systems with pertinent positive or pertinent negative responses have been documented in the HPI. ROS Other: All systems not noted in ROS Statement are negative. Past Medical History Past Medical History: Asthma, Coronary Artery Disease (CAD), Chest Pain / Angina, Heart Failure, CVA/TIA, Diabetes Mellitus, Deep Vein Thrombosis (DVT), GERD/Reflux, Hyperlipidemia, Hypertension, Myocardial Infarction (TX), Osteoarthritis (OA), Pneumonia, Skin Disorder, Sleep Apnea/CPAP/BIPAP Additional Past Medical History / Comment(s): multiple vessel CAD, ischemic cardiomyopathy, diabetic neuropathy bilateral hands and feet, hypertensive cardiovascular disease, SHELIA with no device, chronic gastritis, degenerative disc disease, chronic back pain, depression with hx of suicide attempts, gastroparesis, psoriasis, UTI, migraines, TIA, PUD, hiatal hernia, L rotator cuff tear, bronchitis, pseudoaneurysm L groin post procedure. 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 Last Myocardial Infarction Date:: October 2017 History of Any Multi-Drug Resistant Organisms: MRSA Date of last positivie culture/infection: 11/05/17 (Culture done at [facility]) MDRO Source:: legs Past Surgical History: AICD, Appendectomy, Cholecystectomy, Heart Catheterization With Stent, Hernia Repair Additional Past Surgical History / Comment(s): Pt has had multiple cardiac procedures- caths/stents/PTCA, last stent placed at [facility] -October2017, SAVANNAH, R inguinal hernia repair, umbilical hernia repair, right orchiectomy due to necrosis, right hand surgery r/t injury, colonoscopy, cystoscopy (scraped bladder parrish), stents 10/2017, Past Anesthesia/Blood Transfusion Reactions: No Reported Reaction Additional Past Anesthesia/Blood Transfusion Reaction / Comment(s): . Date of Last Stent Placement:: 10/2017 Type of Cardiac Device: Biventricular Pacemaker, AICD Device Placement Date:: 09/19/15 Past Psychological History: Anxiety, Depression, PTSD Smoking Status: Never smoker Past Alcohol Use History: None Reported Past Drug Use History: None Reported - Past Family History Mother Family Medical History: Coronary Artery Disease (CAD), Myocardial Infarction (TX) Additional Family Medical History / Comment(s): 7 TX and faulty heart valve. Pt does not know the age when mother had her TX's. Father History Unknown: Yes Additional Family Medical History / Comment(s): Does not know who father is. Brother(s) Family Medical History: Cancer, Congestive Heart Failure (CHF), Myocardial Infarction (TX) Additional Family Medical History / Comment(s): Parkinsons. Pt does not know at what age his brother had an TX. Patient's other brother has lung CA Patient has Family Medical History: No Reported History Additional Family Medical History / Comment(s): There is a strong family history for heart disease, hypertension, and diabetes. General Exam - General Exam Comments Initial Comments: GENERAL: Patient is well-developed and well-nourished. Patient is nontoxic and well- hydrated and is in mild distress. ENT: Neck is soft and supple. No significant lymphadenopathy is noted. Oropharynx is clear. Moist mucous membranes. Neck has full range of motion without eliciting any pain. EYES: The sclera were anicteric and conjunctiva were pink and moist. Extraocular movements were intact and pupils were equal round and reactive to light. Eyelids were unremarkable. PULMONARY: Unlabored respirations. Good breath sounds bilaterally. No audible rales rhonchi or wheezing was noted. CARDIOVASCULAR: There is a regular rate and rhythm without any murmurs gallops or rubs. I'm unable to palpate a femoral pulse at this time but the patient's blood pressure is systolic 58 ABDOMEN: Soft and nontender with normal bowel sounds. SKIN: Skin is clear with no lesions or rashes and otherwise unremarkable. NEUROLOGIC: Patient is alert and oriented x3. Cranial nerves II through XII are grossly intact. Motor and sensory are also intact. Normal speech, volume and content. Symmetrical smile. MUSCULOSKELETAL: Normal extremities with adequate strength and full range of motion. LYMPHATICS: No significant lymphadenopathy is noted PSYCHIATRIC: Normal psychiatric evaluation. Limitations: no limitations Course Vital Signs 11/28/18 11/28/18 11/28/18 10:12 10:30 10:45 Temperature 97.8 F Pulse Rate 58 L 54 L 60 Respiratory 16 Rate Blood Pressure 63/31 54/22 59/33 O2 Sat by Pulse 100 96 96 Oximetry 11/28/18 11/28/18 11/28/18 11:00 11:06 11:10 Temperature Pulse Rate 59 L 65 66 Respiratory 16 22 Rate Blood Pressure 69/26 69/26 O2 Sat by Pulse 95 99 100 Oximetry 11/28/18 11/28/18 11/28/18 11:20 11:30 11:40 Temperature Pulse Rate 66 63 Respiratory 23 15 Rate Blood Pressure 62/36 75/44 69/20 O2 Sat by Pulse 95 100 Oximetry 11/28/18 11/28/18 11/28/18 11:50 12:00 12:10 Temperature Pulse Rate 70 70 71 Respiratory 11 L 19 23 Rate Blood Pressure 97/60 126/93 120/91 O2 Sat by Pulse 100 100 100 Oximetry 11/28/18 11/28/18 12:20 12:30 Temperature Pulse Rate 88 71 Respiratory 20 21 Rate Blood Pressure 123/80 119/90 O2 Sat by Pulse 100 100 Oximetry Procedures - Central Line Placement Right Femoral Consent Obtained: verbal consent Patient Placed on Monitor/Pulse Ox: Yes MD Prep: mask, gown, gloves Central Line Prep: Chlorhexidine scrub Local Anesthesia Used: Lidocaine 1% Ultrasound Used for Placement: Yes Central Line Lumen Inserted: triple Central Line Position: good blood return, all ports aspirated, flushed, capped, sutured in place with nylon Dressing Applied: Tegaderm Patient Tolerated Procedure: well Complications: none Medical Decision Making - Medical Decision Making Patient's blood pressure was low and he was feeling extremely lightheaded I placed a triple lumen central line in the right femoral vein. I bolused the patient with a liter of fluid while we awaited for the quad strength Levophed to be delivered. EKG shows a paced rhythm at 60 beats a minute MD interval is 186 QRS is 94 QT interval 422 QTC is 422. Patient's EKG shows no ST segment elevation or depression or T wave abnormalities are noted. Chest x-ray shows mild pulmonary edema Patient was placed on Levophed and blood pressure came up nicely. I was back in the room reevaluating the patient he was feeling better but continued to have some chest pain. I spoke with Dr. Clay he agreed to accept the patient admitted the patient I spoke with Dr. Valerio he accepted the patient to the ICU. I spoke with Dr. Salazar and he stated that he wanted the pacemaker defibrillator interrogated while he was in the ICU so they can determine if he went into a lethal arrhythmia - Lab Data Result diagrams: 11/28/18 10:49 11/28/18 10:49 Lab Results 11/28/18 11/28/18 11/28/18 Range/Units 10:49 10:49 10:49 WBC 8.0 (3.8-10.6) k/uL RBC 3.72 L (4.30-5.90) m/uL Hgb 9.7 L D (13.0-17.5) gm/dL Hct 31.4 L (39.0-53.0) % MCV 84.4 (80.0-100.0) fL MCH 25.9 (25.0-35.0) pg MCHC 30.7 L (31.0-37.0) g/dL RDW 16.4 H (11.5-15.5) % Plt Count 282 (150-450) k/uL Neutrophils % 74 % Lymphocytes % 16 % Monocytes % 5 % Eosinophils % 2 % Basophils % 1 % Neutrophils # 6.0 (1.3-7.7) k/uL Lymphocytes # 1.3 (1.0-4.8) k/uL Monocytes # 0.4 (0-1.0) k/uL Eosinophils # 0.2 (0-0.7) k/uL Basophils # 0.1 (0-0.2) k/uL Hypochromasia Marked Anisocytosis Slight PT 11.2 (9.0-12.0) sec INR 1.1 (<1.2) APTT 19.7 L (22.0-30.0) sec Sodium 131 L (137-145) mmol/L Potassium 4.7 (3.5-5.1) mmol/L Chloride 102 (98-107) mmol/L Carbon Dioxide 21 L (22-30) mmol/L Anion Gap 8 mmol/L BUN 33 H (9-20) mg/dL Creatinine 1.76 H (0.66-1.25) mg/dL Est GFR (CKD-EPI)AfAm 54 (>60 ml/min/1.73 sqM) Est GFR (CKD-EPI)NonAf 47 (>60 ml/min/1.73 sqM) Glucose 222 H (74-99) mg/dL Calcium 8.1 L (8.4-10.2) mg/dL Magnesium 1.9 (1.6-2.3) mg/dL Total Bilirubin 0.4 (0.2-1.3) mg/dL AST 23 (17-59) U/L ALT 21 (21-72) U/L Alkaline Phosphatase 95 (38-126) U/L Troponin I (0.000-0.034) ng/mL Total Protein 4.7 L (6.3-8.2) g/dL Albumin 2.6 L (3.5-5.0) g/dL 11/28/18 Range/Units 10:49 WBC (3.8-10.6) k/uL RBC (4.30-5.90) m/uL Hgb (13.0-17.5) gm/dL Hct (39.0-53.0) % MCV (80.0-100.0) fL MCH (25.0-35.0) pg MCHC (31.0-37.0) g/dL RDW (11.5-15.5) % Plt Count (150-450) k/uL Neutrophils % % Lymphocytes % % Monocytes % % Eosinophils % % Basophils % % Neutrophils # (1.3-7.7) k/uL Lymphocytes # (1.0-4.8) k/uL Monocytes # (0-1.0) k/uL Eosinophils # (0-0.7) k/uL Basophils # (0-0.2) k/uL Hypochromasia Anisocytosis PT (9.0-12.0) sec INR (<1.2) APTT (22.0-30.0) sec Sodium (137-145) mmol/L Potassium (3.5-5.1) mmol/L Chloride (98-107) mmol/L Carbon Dioxide (22-30) mmol/L Anion Gap mmol/L BUN (9-20) mg/dL Creatinine (0.66-1.25) mg/dL Est GFR (CKD-EPI)AfAm (>60 ml/min/1.73 sqM) Est GFR (CKD-EPI)NonAf (>60 ml/min/1.73 sqM) Glucose (74-99) mg/dL Calcium (8.4-10.2) mg/dL Magnesium (1.6-2.3) mg/dL Total Bilirubin (0.2-1.3) mg/dL AST (17-59) U/L ALT (21-72) U/L Alkaline Phosphatase (38-126) U/L Troponin I 0.221 H* (0.000-0.034) ng/mL Total Protein (6.3-8.2) g/dL Albumin (3.5-5.0) g/dL Critical Care Time Critical Care Time: Yes Total Critical Care Time: 35 Disposition Clinical Impression: Syncope, Hypotension, Non-STEMI (non-ST elevated myocardial infarction), Chest pain Disposition: ADMITTED IP TO THIS HOSP Referrals: Junie New MD [Primary Care Provider] - 1-2 days Time of Disposition: 13:17
[2018-11-28] MEDS: NOREPINEPHRINE 32 MG in SODIUM CHLORIDE 0.9% 218 ML IV ONE (11:00)
[2018-11-28 11:09] LABS: Albumin 2.6 g/dL (3.5-5.0); Calcium 8.1 mg/dL (8.4-10.2); Magnesium 1.9 mg/dL (1.6-2.3); Potassium 4.7 mmol/L (3.5-5.1); Total Bilirubin 0.4 mg/dL (0.2-1.3); Total Protein 4.7 g/dL (6.3-8.2)
[2018-11-28] MEDS ORDERED: SODIUM CHLORIDE 0.9% 1,000 ML IV ONE (11:15)
[2018-11-28 11:17] LABS: Anisocytosis Slight; Basophils # (A) 0.1 k/uL (0-0.2); Basophils % (A) 1 %; Eosinophils # (A) 0.2 k/uL (0-0.7); Eosinophils % (A) 2 %; HCT 31.4 % (39.0-53.0); Hypochromasia Marked; INR 1.1 (<1.2); Lymphocytes # (A) 1.3 k/uL (1.0-4.8); Lymphocytes % (A) 16 %; MCH 25.9 pg (25.0-35.0); MCHC 30.7 g/dL (31.0-37.0); MCV 84.4 fL (80.0-100.0); Mean Platelet Volume 7.6; Monocytes # (A) 0.4 k/uL (0-1.0); Monocytes % (A) 5 %; Neutrophils % (A) 74 %; Platelet Count 282 k/uL (150-450); Prothrombin Time 11.2 sec (9.0-12.0); RBC 3.72 m/uL (4.30-5.90); RDW 16.4 % (11.5-15.5)
[2018-11-28 11:21] LABS: HGB 9.7 gm/dL (13.0-17.5)
[2018-11-28 11:24] LABS: Partial Thromboplastin Time 19.7 sec (22.0-30.0)
--- NOTE | 2018-11-28 11:53 | CT ---
EXAMINATION TYPE: CT brain cspine wo con DATE OF EXAM: 11/28/2018 COMPARISON: 11/09/2018 HISTORY: Syncopal episode CT DLP: 1500.3 mGycm Automated exposure control for dose reduction was used. TECHNIQUE: CT scan of the head and cervical spine are performed without contrast. FINDINGS: There is no acute intracranial hemorrhage, mass effect, or midline shift identified. The ventricles and sulci are within stable compatible with mild degenerative change with a greater front al lobe component. The globes are intact and the visualized sinuses are clear. Faint nonspecific White matter changes noted. Follow-up MRI recommended Cervical spine is visualized in its entirety from C1 through upper thoracic levels and demonstrates s atisfactory alignment without evidence of acute fracture or dislocation. Prevertebral soft tissue ap pears within normal limits. The C1-C2 articulation is unremarkable. Assessment spinal canal is nond iagnostic due to artifact resolution. Multilevel facet arthropathy noted. Cervical spondylosis C5-C6. IMPRESSION: 1. Cervical spondylosis C5-C6 with facet arthropathy. 2. No acute intracranial hemorrhage. Nonspecific low-attenuation the white matter. This is most commo nly seen with remote microvascular ischemia or demyelinating process. Recommend follow-up MRI
--- NOTE | 2018-11-28 12:54 | XR ---
EXAMINATION TYPE: XR chest 2V DATE OF EXAM: 11/28/2018 COMPARISON: 11/20/2018 TECHNIQUE: PA and lateral views submitted. HISTORY: Chest FINDINGS: ET tube is been removed and there is a cardiac device. Diffuse interstitial pattern with bilateral co nsolidation small effusions. Coronary stenting suggested. IMPRESSION: 1. ET tube removal. Persistent findings of CHF are noted with small bilateral effusions. Underlying p neumonia not excluded..
[2018-11-28] MEDS ORDERED: METOCLOPRAMIDE 5 MG/ML 2 ML VIAL IVP STA (13:13)
[2018-11-28] MEDS ORDERED: HEPARIN SODIUM,PORCINE 5,000 UNIT/ML 1 ML VIAL IV ONE (13:22)
[2018-11-28] MEDS ORDERED: NALOXONE 0.4 MG/ML 1 ML VIAL IV PRN (13:23)
[2018-11-28] MEDS: HEPARIN SOD,PORK IN 0.45% NACL 25,000 UNIT in 0.45% NACL 1 250ML.BAG IV SCH (14:37)
[2018-11-28] MEDS ORDERED: ALBUTEROL NEBULIZED 2.5 MG/3 ML INHALATION PRN (15:08)
[2018-11-28] MEDS ORDERED: NITROGLYCERIN SL TABS 0.4 MG TAB SUBLINGUAL PRN (15:08)
[2018-11-28] MEDS ORDERED: hydrOXYzine PAMOATE 25 MG CAP PO PRN (15:08)
[2018-11-28] MEDS ORDERED: TEMAZEPAM 15 MG CAP PO PRN (15:10)
[2018-11-28 15:19] LABS: Glucose,Whole Blood 386 mg/dL (75-99)
[2018-11-28] MEDS: INSULIN ASPART (NovoLOG) 100 UNIT/ML VIAL SQ SCH ×2 (15:40→18:01)
[2018-11-28] MEDS: SODIUM CHLORIDE 0.9% 1,000 ML IV SCH (15:51)
[2018-11-28] MEDS ORDERED: LORazepam 2 MG/ML INJ IV PRN (16:48)
[2018-11-28] MEDS ORDERED: INSULIN ASPART (NovoLOG) 100 UNIT/ML VIAL SQ SCH ×2 (17:30)
[2018-11-28 17:45] LABS: Glucose,Whole Blood 358 mg/dL (75-99)
[2018-11-28] MEDS ORDERED: INSULIN REGULAR 100 UNIT in SODIUM CHLORIDE 0.9% 100 ML IV SCH (18:00)
[2018-11-28 18:40] LABS: Glucose,Whole Blood 294 mg/dL (75-99)
[2018-11-28 19:14] LABS: Glucose,Whole Blood 279 mg/dL (75-99)
[2018-11-28 19:44] LABS: Glucose,Whole Blood 257 mg/dL (75-99)
[2018-11-28] MEDS ORDERED: INSULIN DETEMIR (LEVEMIR) 100 UNIT/ML SYR SQ SCH (21:00)
[2018-11-28] MEDS ORDERED: ROSUVASTATIN 40 MG PO SCH (21:00)
[2018-11-28 21:01] LABS: Glucose,Whole Blood 198 mg/dL (75-99)
--- NOTE | 2018-11-28 21:20 | HP ---
HISTORY AND PHYSICAL DATE OF SERVICE: 11/28/2018 CHIEF COMPLAINT: Syncope. HISTORY OF PRESENT ILLNESS: This is a 42-year-old gentleman with a past medical history of multiple medical problems including extensive history of coronary artery disease with multiple procedures, history of asthma, history of CHF, history of CVA, TIA, GERD, hypertension, hyperlipidemia, myocardial infarction, history of ischemic cardiomyopathy, history of diabetic peripheral neuropathy, history of EtOH, suicidal attempts, history of CAD stent, anxiety, depression, being followed by Dr. Junie New in the outpatient recently was in [facility] emergency Room where the patient sustained multiple cardiac arrest and the patient was resuscitated and the patient sent to [facility] where apparently 2 stents were placed. The details are not known at this time. Today, the patient went to a restaurant and was coming out. The patient felt the patient was going to have a syncopal episode and the EMS was brought in and patient taken to [facility] and admitted for further evaluation and treatment. The patient found to have systolic blood pressure of 40 and the pacemaker interrogation revealed some ventricular fibrillation and the patient admitted for further evaluation and treatment. Currently, the patient complains of chest pain, possibly the previous CPR. Otherwise, there is no history of fever, rigors or chills. No history of headache, loss of consciousness or seizures. Patient is excessively sleepy at this time. PAST MEDICAL HISTORY: History of asthma, CAD, history of chest pain, CHF, CVA, TIA, DVT, GERD, hypertension, hyperlipidemia, myocardial infarction, pneumonia, sleep apnea, history of AICD. MEDICATIONS: Prior to admission include home medications are: 1. Prinivil 10 mg p.o. daily. 2. Isosorbide 10 mg p.o. t.i.d. 3. Lasix 20 mg p.o. daily. 4. Apresoline 25 mg t.i.d. 5. Coreg 3.125 mg p.o. b.i.d. 6. Hydroxyzine 50 mg q.h.s. p.r.n. 7. Demadex 20 mg p.o. b.i.d. 8. Flomax 0.4 daily. 9. Aldactone 25 mg p.o. daily. 10.Ranexa 500 mg p.o. b.i.d. 11.Mysoline 100 mg p.o. b.i.d. 12.Protonix 40 mg. 13.Nitrostat 0.4 mg p.r.n. 14.Lopressor 50 mg p.o. b.i.d. 15.NovoLog FlexPen 16 units a.c. t.i.d. 16.Basaglar 50 units subcu q.h.s. 17.Digitek 125 mcg p.o. 18.Cymbalta 60 mg p.o. b.i.d. 19.Plavix 75 mg q.a.m. 20.Lipitor 40 mg q.h.s. 21.Ecotrin 81 mg p.o. 22.Ventolin HFA 2 puffs q.6h p.r.n. ALLERGIES: ERYTHROMYCIN, KEFLEX, CODEINE, MECLIZINE, PENICILLIN, SHELLFISH, IODINATED CONTRAST DYES, NAPROSYN, ATORVASTATIN AND NORCO. FAMILY HISTORY: History of CAD, myocardial infarction. SOCIAL HISTORY: No history of smoking. No history of alcohol. REVIEW OF SYSTEMS: ENT: No diminished vision. No diminished hearing. CARDIOVASCULAR: No angina or palpitations. RESPIRATORY: As mentioned earlier. GI no nausea or vomiting. : No dysuria. NERVOUS SYSTEM: No numbness or weakness. ALLERGY/IMMUNOLOGY: No asthma or hayfever. MUSCULOSKELETAL as mentioned earlier. HEMATOLOGY/ONCOLOGY: No history of anemia. ENDOCRINE: Diabetes. CONSTITUTIONAL: As mentioned earlier. DERMATOLOGY: Negative. RHEUMATOLOGY negative. PSYCHIATRY as mentioned earlier. PHYSICAL EXAM: Patient is alert, oriented x3. Pulse is 68. Blood pressure 113/82. Respiration 26, temperature normal, pulse ox 98% on room air. HEENT: Conjunctivae normal. NECK: No JVD. CARDIOVASCULAR: S1, S2 muffled. RESPIRATORY: Breath sounds diminished in the bases. Scattered rhonchi and crackles. ABDOMEN: Soft, nontender. No mass palpable. LEGS: No edema. No swelling. NERVOUS SYSTEM: Higher functions as mentioned earlier. Moves all four limbs. No focal motor or sensory deficits. Lymphatics: No lymph nodes palpable in the neck, axillae or groin. SKIN: No ulcer, rash or bleeding. JOINTS: No active deforming arthropathy. LABS: At this time shows WBC 8, hemoglobin 9.7. INR is 1.1. Sodium 131, potassium 4.7, creatinine is 1.76 and troponin 0.221. ASSESSMENT: 1. Syncope with possibly acute non ST segment myocardial infarction with cardiogenic shock. 2. Possible cardiac arrhythmia ventricular fibrillation. 3. History of recent CAD stent placement at [facility]. 4. History of recent multiple cardiac arrests. 5. Increased creatinine with chronic kidney stage III. 6. Hyponatremia. 7. Diabetes type 2 uncontrolled. 8. Troponin 0.221. 9. Anemia, normocytic anemia of chronic disease. 10.Obesity with body mass of 38.4. 11.History of asthma. 12.History of coronary artery disease. 13.History of congestive heart failure. 14.History of cerebrovascular accident/ transient ischemic attack. 15.Diabetes type 2. 16.History of deep vein thrombosis. 17.History of hypertension. 18.History of hyperlipidemia. 19.History of pneumonia. 20.History of obstructive sleep apnea. 21.History of multivessel coronary artery disease. 22.Ischemic cardiomyopathy. 23.History of diabetic peripheral neuropathy. 24.History of obstructive sleep apnea. 25.History of degenerative joint disease. 26.History of suicidal attempts previously. 27.History of gastroparesis. 28.History of psoriasis. 29.History of transient ischemic attack. 30.History of pseudoaneurysm of left groin. 31.History of MRSA. 32.History of AICD. 33.History of coronary artery disease stent. 34.History of biventricular pacemaker and AICD. 35.History of anxiety, depression, PTSD. 36.FULL CODE. RECOMMENDATIONS AND DISCUSSION: In this 42-year-old gentleman who presented with multiple complex medical issues, at this time, I recommend to continue current medications, management and symptomatic treatment. The patient has been started on Levophed and cautious IV fluids. IV heparin was also initiated. The patient is monitored in ICU at this time. We will continue to monitor. Cardiology and pulmonology has been consulted. Otherwise, resume the home medications. We will hold the antihypertensive medications including beta blockers. Otherwise symptomatic treatment for the pain also will be provided. Monitor blood sugars closely. Overall prognosis guarded because of multiple complex medical issues, home medications reviewed. Discussed with the patient. Discussed with staff. Further recommendations to follow. Overall prognosis extremely guarded because of multiple complex medical issues as listed above and discussed with the patient's family and the patient. Further recommendations to follow. Copy of this dictation being forwarded to Dr. Junie New who is the primary physician. MMODL / IJN: [id number] /
[2018-11-28] MEDS ORDERED: HEPARIN SODIUM,PORCINE 5,000 UNIT/ML 1 ML VIAL IV STA (21:21)
[2018-11-28] MEDS: DULoxetine HCL 60 MG CAPSULE.DR PO SCH (21:23)
[2018-11-28] MEDS: PRIMIDONE 50 MG TAB PO SCH (21:24)
[2018-11-28] MEDS: RANOLAZINE 500 MG TAB.ER.12H PO SCH (21:24)
[2018-11-28] MEDS: HYDROmorphone 0.5 MG/0.5 ML SYRINGE IVP PRN (21:29)
[2018-11-28 21:40] LABS: Glucose,Whole Blood 123 mg/dL (75-99)
[2018-11-28 22:22] LABS: Glucose,Whole Blood 127 mg/dL (75-99)
--- NOTE | 2018-11-28 22:35 | CONS ---
CONSULTATION REASON FOR CONSULTATION: Hypotension. 42-year-old male patient who has had multiple visitation in our hospital for cardiac complications. In fact, it is my 1st encounter with this patient. I am pretty much impressed by the extensive cardiac history, that was offered to me in this young gentleman who is only 42 years of age. He has extensive coronary artery disease, ischemic cardiomyopathy, with ejection fraction of less than 20%. The patient has a biventricular AICD in place. He also suffers from obesity, obstructive sleep apnea. He has not been compliant to CPAP therapy and he has had previous CVA, diabetes, hypertension and hyperlipidemia. His course was also complicated by previous history of cardiac arrest/ventricular tachycardia and he has also had previous history of DVT of the left lower extremity/tibial vein with pulmonary embolism. This patient was recently in [facility] where he underwent further coronary interventions. He apparently came to [facility] on 11/14/2018 with unstable angina. He was transferred to [facility] where he underwent further interventions and two additional stents were added. He was discharged home with some adjustments in his medication list. Based on the most recent medication list that was offered to me, the patient is taking a combination of Lasix 20 mg, hydralazine 25 mg q.8 hours and Imdur 10 mg p.o. daily. He is also on Coreg 3.125 mg twice a day, lisinopril 10 mg p.o. daily. This afternoon, the patient was in a restaurant and he felt the room was spinning. He told his and as he was about to pay the bill, he became unresponsive and he collapsed on the floor. Within a few seconds the patient woke up back again and he was found to be hypotensive with a systolic blood pressure in the 60s. He was not hypoglycemic. He came into the emergency room where his systolic blood pressure was still in the 60s. He was flushed on pressors after insertion of a femoral line catheter on the right side. The pacemaker was interrogated. No ventricular tachycardia or VFibs were identified. No shocks were delivered. His EKG showed a bradycardic rhythm with a heart rate being in the 60s and his pacemaker is set at a DDD mode with a base rate of 60. He is resting comfortably in bed at this point in time. Hemoglobin is at 8, WBC count 9.7. Creatinine is at 1.6 which is comparable to his earlier level of creatinine levels. His troponin was 0.221. He is free of any chest pain at this point in time. He already received 1.5 L of IV fluids. Currently he is on a maintenance of 100 mL an hour of normal saline. PAST MEDICAL HISTORY: 1. Coronary artery disease with multiple myocardial infarctions and multiple coronary intervention and stenting. 2. Ischemic cardiomyopathy with ejection fraction less than 20%. 3. History of biventricular AICD placement. 4. Obesity. 5. Obstructive sleep apnea untreated. 6. Cerebrovascular accident. 7. Diabetes. 8. Hypertension. 9. Hyperlipidemia. 10.Previous history of left lower extremity deep vein thrombosis and pulmonary embolism. 11.Previous history of cardiac arrest and ventricular tachycardia. 12. PAST SURGICAL HISTORY: Includes cardiac catheterizations on multiple occasion with insertion of coronary stents, exact type of stenting is not known, appendectomy, biventricular AICD placement, cholecystectomy, SAVANNAH, right inguinal hernia repair, umbilical hernia repair, right orchiectomy due to necrosis, colonoscopy, right hand surgery, cystoscopy. PSYCHIATRIC HISTORY: Anxiety and depression. PTSD is present. The patient had has had previous suicide attempts with use of insulin. He has a walker at home. He drives and he has 2 adult stepchildren at home. Spouse manages his medication. SOCIAL HISTORY: smoker. No history of alcohol. No history of IV drugs. He used to use alcohol and he quit drinking approximately 8 years ago. He used to smoke marijuana in the past. FAMILY HISTORY: Positive for coronary artery disease and DE. His mother had MIs and valve disease. REVIEW OF SYSTEMS: Fourteen-point review of system was done. Positive findings are mentioned in history of present illness. He is quite obese, somnolent, and sleepy and has typical features of obstructive sleep apnea. He has no angina. He had dizziness and no vertigo. No seizure activity. No headaches. No GI bleeding. No trauma. He has chronic exertional dyspnea. No palpitations. No other significant complaints and his overall performance and functional status is poor and he was offered hospice by the cardiac team at [facility]. However he is not sure of that decision at this point in time. PHYSICAL EXAMINATION: His current vitals: BP is 114/78, pulse is 65, respirations 16-22 and he is afebrile. General appearance: Calm, comfortable, somnolent and sleepy. Head is atraumatic, normocephalic. Neck is Mallampati class IV. There is no goiter or neck mass. LUNGS: Diminished breath sounds bilaterally, otherwise clear. HEART: Sounds are regular. Positive S1, S2. No S3, S4. No murmurs. ABDOMEN: Soft, nontender, no direct tenderness, rebound tenderness or guarding. EXTREMITIES: No edema. No cyanosis or clubbing. Diminished pulses yet are present and palpable. SKIN: Negative for any open wounds or ulcerations. Negative for cellulitis. Neuro is awake and alert without any focal neurological deficits. WBC count 18, hemoglobin was 9.7, and platelets are 282. INR is at 1.02. PT of 11.2, sodium is 131, potassium 4.7, chloride 102, bicarb 21, BUN 33, creatinine 1.7, tropes are 0.02. LFTs are within normal limits. IMPRESSION: 1. Acute collapse/loss of consciousness. Most likely of a cardiac in nature. Possibilities are either an acute arrhythmia versus acute hypotension as the patient was found to be quite hypotensive at time of admission, he was given IV fluids, and currently is on pressors. No focal neurological deficits. No angina. No acute EKG abnormalities at this point in time. Currently pressors are running at 14 mics of Levophed. The patient has been given 1.5 L of IV fluids and currently he is on 100 mL an hour. Pacemaker interrogated. No VFib or ventricular tachycardias. No other significant arrhythmias noted. He has a backup DDD mode at the rate of 50. 2. Multivessel coronary artery disease with multiple coronary interventions and stenting. 3. Ischemic cardiomyopathy with ejection fraction of less than 20%. 4. Moderate degree of pulmonary hypertension with a PA pressure of 48. 5. History of deep vein thrombosis and pulmonary embolism. 6. Previous history of cardiac arrest. 7. Previous history of pulmonary embolism. 8. Multiple myocardial infarctions requiring multiple coronary interventions and stenting. 9. Obstructive sleep apnea, not treated. 10.Diabetes mellitus. 11.Hypertension. 12.Hyperlipidemia. 13.Deep vein thrombosis and pulmonary embolism, history of. 14.Impaired performance on functional status secondary to the above-mentioned comorbidities. PLAN: 1. We will admit this patient to the ICU. 2. Obtain records from [facility] regarding the further details. 3. The patient has triple-lumen catheter in place. Continue IV fluids. Wean off pressors. Monitor hemoglobin. Check UA and cultures. Check cardiac enzymes. Hold his cardiac medication that may lower his blood pressure at the time being until the patient's blood pressure is further stabilized. 4. Condition is critical. 5. Code status needs to be established. 6. We will continue to follow and make further recommendations based on his progress. MMODL / IJN: [id number] /
[2018-11-28 23:13] LABS: Glucose,Whole Blood 118 mg/dL (75-99)
[2018-11-29 00:49] LABS: Glucose,Whole Blood 106 mg/dL (75-99)
[2018-11-29 02:31] LABS: Glucose,Whole Blood 116 mg/dL (75-99)
[2018-11-29] MEDS: HYDROmorphone 0.5 MG/0.5 ML SYRINGE IVP PRN ×4 (02:31→21:54)
[2018-11-29 04:45] LABS: Basophils # (A) 0.1 k/uL (0-0.2); Basophils % (A) 1 %; Eosinophils # (A) 0.2 k/uL (0-0.7); Eosinophils % (A) 3 %; HCT 37.6 % (39.0-53.0); HGB 11.4 gm/dL (13.0-17.5); Hypochromasia Marked; Lymphocytes % (A) 27 %; MCH 26.5 pg (25.0-35.0); MCHC 30.3 g/dL (31.0-37.0); MCV 87.4 fL (80.0-100.0); Mean Platelet Volume 7.8; Monocytes # (A) 0.5 k/uL (0-1.0); Monocytes % (A) 7 %; Neutrophils # (A) 4.5 k/uL (1.3-7.7); Neutrophils % (A) 60 %; Platelet Count 271 k/uL (150-450); Poikilocytosis Slight; RDW 15.9 % (11.5-15.5); WBC 7.6 k/uL (3.8-10.6)
[2018-11-29 04:55] LABS: Calcium 8.5 mg/dL (8.4-10.2); Phosphorus 5.1 mg/dL (2.5-4.5); Potassium 4.9 mmol/L (3.5-5.1)
[2018-11-29 05:04] LABS: Glucose,Whole Blood 150 mg/dL (75-99)
[2018-11-29 06:52] LABS: Glucose,Whole Blood 162 mg/dL (75-99)
[2018-11-29] MEDS: INSULIN ASPART (NovoLOG) 100 UNIT/ML VIAL SQ SCH ×7 (07:01→21:34)
--- NOTE | 2018-11-29 07:13 | XR ---
EXAMINATION TYPE: XR chest 1V DATE OF EXAM: 11/29/2018 COMPARISON: 11/28/2018 HISTORY: 42-year-old male with CHF, fluid status TECHNIQUE: Single frontal view of the chest is obtained. FINDINGS: Left anterior chest wall ICD generator with right atrial, right ventricular, and coronary sinus leads . Heart remains mildly enlarged. Diffuse interstitial and vascular prominence persists. Continued sma ll right pleural effusion, increased slightly in the interval. IMPRESSION: Continued CHF with mild pulmonary vascular congestion. A small right pleural effusion with adjacent a telectasis and/or consolidation is slightly increased in the interval.
[2018-11-29] MEDS: PANTOPRAZOLE 40 MG TABLET PO SCH (08:13)
[2018-11-29] MEDS: PRIMIDONE 50 MG TAB PO SCH ×2 (08:13→21:34)
[2018-11-29] MEDS: DULoxetine HCL 60 MG CAPSULE.DR PO SCH ×2 (08:13→21:34)
[2018-11-29] MEDS: SODIUM CHLORIDE 0.9% 1,000 ML IV SCH ×2 (08:15→12:59)
[2018-11-29] MEDS ORDERED: DIGOXIN 125 MCG TAB PO SCH (09:00)
[2018-11-29] MEDS: ASPIRIN 81 MG PO SCH (10:11)
[2018-11-29] MEDS: CLOPIDOGREL 75 MG TAB PO SCH (10:12)
[2018-11-29] MEDS: RANOLAZINE 500 MG TAB.ER.12H PO SCH ×2 (10:12→21:34)
--- NOTE | 2018-11-29 10:46 | ECHOF ---
Referral Reason:cad, bedside MEASUREMENTS -------- HEIGHT: 167.6 cm WEIGHT: 109.3 kg BP: 102/71 RVIDd: 3.5 cm (< 3.3) IVSd: 1.2 cm (0.6 - 1.1) LVIDd: 5.2 cm (3.9 - 5.3) LVPWd: 1.2 cm (0.6 - 1.1) IVSs: 1.7 cm LVIDs: 3.9 cm LVPWs: 1.5 cm LA Diam: 3.8 cm (2.7 - 3.8) LAESV Index (A-L): 26.03 ml/m Ao Diam: 3.2 cm (2.0 - 3.7) AV Cusp: 2.1 cm (1.5 - 2.6) MV EXCURSION: 14.924 mm (> 18.000) MV EF SLOPE: 108 mm/s (70 - 150) EPSS: 1.7 cm MV E Benjy: 0.98 m/s MV DecT: 103 ms MV A Benjy: 0.30 m/s MV E/A Ratio: 3.25 RAP: 15.00 mmHg RVSP: 51.23 mmHg FINDINGS -------- Paced rhythm. This was a technically difficult study with suboptimal apical views. The left ventricular size is normal. There is borderline concentric left ventricular hypertrophy. Overall left ventricular systolic function is severely impaired with, an EF between 20 - 25 %. Odalys bal hypokinesis The right ventricle is mildly enlarged. Normal LA size by volume 22+/-6 ml/m2. The right atrium is normal in size. 5 ml of Lumason was utilized for enhancement of images. Interatrial and interventricular septum intact. Aortic valve is trileaflet and is mildly thickened. The mitral valve leaflets are mildly thickened. Mild mitral regurgitation is present. Moderate tricuspid regurgitation present. There is moderate pulmonary hypertension. The right jyoti tricular systolic pressure, as measured by Doppler, is 51.23mmHg. Trace/mild (physiologic) pulmonic regurgitation. The aortic root size is normal. The inferior vena cava is dilated with no significant inspiratory collapse which is consistent estima kedar right atrial pressure of >15 mmHg. There is no pericardial effusion. CONCLUSIONS -------- 1. Paced rhythm. 2. This was a technically difficult study with suboptimal apical views. 3. The left ventricular size is normal. 4. There is borderline concentric left ventricular hypertrophy. 5. Overall left ventricular systolic function is severely impaired with, an EF between 20 - 25 %. 6. Global hypokinesis 7. The right ventricle is mildly enlarged. 8. Normal LA size by volume 22+/-6 ml/m2. 9. The right atrium is normal in size. 10. 5 ml of Lumason was utilized for enhancement of images. 11. Interatrial and interventricular septum intact. 12. Aortic valve is trileaflet and is mildly thickened. 13. The mitral valve leaflets are mildly thickened. 14. Mild mitral regurgitation is present. 15. Moderate tricuspid regurgitation present. 16. There is moderate pulmonary hypertension. 17. The right ventricular systolic pressure, as measured by Doppler, is 51.23mmHg. 18. Trace/mild (physiologic) pulmonic regurgitation. 19. The aortic root size is normal. 20. The inferior vena cava is dilated with no significant inspiratory collapse which is consistent es timated right atrial pressure of >15 mmHg. 21. There is no pericardial effusion. CUSHION INSTALLER: Alicia Bethea RDCS
[2018-11-29 11:54] LABS: Appearance,Urine Clear (Clear); Bilirubin,Urine Negative (Negative); Blood,Urine Negative (Negative); Color,Urine Yellow; Glucose,Urine (UA) Negative (Negative); Ketones,Urine Negative (Negative); Leukocyte Esterase,Urine Negative (Negative); Nitrite,Urine Negative (Negative); Protein,Urine Negative (Negative); Specific Gravity,Urine 1.012 (1.001-1.035); Urobilinogen,Urine <2.0 mg/dL (<2.0)
[2018-11-29 12:10] LABS: Glucose,Whole Blood 94 mg/dL (75-99)
--- NOTE | 2018-11-29 12:41 | P.PN ---
Subjective Progress Note Date: 11/29/18 Principal diagnosis: Hypotension with acute collapse and loss of consciousness, cardiac in nature unless otherwise. This is a 42-year-old male with an extensive cardiac history. Patient comes in today because he had a syncopal episode at a restaurant. Patient states he felt lightheaded and next thing he knows everybody extending over. Patient complains of chest pain anteriorly and laterally. Patient states he thinks she might of her discomfort when he fell. Patient's not sure if he hit his head or not. Patient states he is short of breath. Patient denies any diaphoretic episodes. Patient denies any nausea at this time. Patient denies any abdominal pain. Patient denies any extremity pain. Patient denies any palpitations. Patient does state that he feels extremely lightheaded. Patient was seen by Dr. Valerio when he was admitted to the ICU yesterday, and he felt that the patient had hypotension, mental status change and collapse secondary to hypotension which is felt to be cardiac in nature unless proven otherwise. Patient is known to have history of coronary artery disease, multiple coronary interventions and stenting, severe ischemic cardiomyopathy, previous AICD placement, obstructive sleep apnea syndrome, and today the patient is barely on any norepinephrine, comfortable, in no distress. His norepinephrine is being titrated, added to likely be discontinued in the next couple of hours. Objective - Vital Signs Vital signs: Vital Signs Temp 97.5 F L 11/29/18 08:00 Pulse 75 11/29/18 10:45 Resp 25 H 11/29/18 10:45 BP 94/61 11/29/18 10:45 Pulse Ox 91 L 11/29/18 10:45 Intake & Output 11/28/18 11/29/18 11/29/18 18:59 06:59 18:59 Intake Total 843.789 5315.619 653.941 Output Total 0 2075 600 Balance 458.938 -694.381 53.941 Weight 107.955 kg 109.4 kg Intake: IV 400 1200 400 Sodium Chloride 0.9% 1, 400 1200 400 000 ml @ 50 mls/hr IV . Q20H [facility] Rx#:[id number] Intake, IV Titration 58.938 180.619 13.941 Amount Heparin Sod,Pork in 0.45% 143.785 NaCl 25,000 unit In 0.45 % NaCl 1 250ml.bag @ 9.25 UNITS/KG/HR 9.986 mls/hr IV .Q24H [facility] Rx#: [id number] Insulin Regular 100 unit 27.153 In Sodium Chloride 0.9% 100 ml @ Per Protocol IV .Q0M [facility] Rx#:[id number] Norepinephrine 32 mg In 58.938 9.681 13.941 Sodium Chloride 0.9% 218 ml @ 0.05 MCG/KG/MIN 2.53 mls/hr IV .Q24H [facility] Rx#: [id number] Oral 240 Output: Urine 0 2075 600 Other: Voiding Method Urinal # Voids 1 - Exam Physical Exam: Revealed a 42-year-old white male in no distress Head: Atraumatic, normocephalic. HEENT:[Neck is supple.] [No neck masses.] [No thyromegaly.] [No JVD.] Chest: Minimal fine crackles at the bases especially at the left base. No rhonc hi no wheezes. Cardiac Exam: [Normal S1 and S2, no S3 gallop, no murmur.] Abdomen: [Soft, nontender, no megaly, no rebound, no guarding, normal bowel sounds.] Extremities: [No clubbing,1+ bipedala, no cyanosis.] Neurological Exam: [No focal neurologic deficit.]Alert oriented 3. Psychiatric: Normal mood affect and mental status examination. Skin: No rashes. Lymphatics: No lymphadenopathy. - Labs CBC & Chem 7: 11/29/18 04:20 11/29/18 04:20 Labs: Abnormal Lab Results - Last 24 Hours (Table) 11/28/18 11/28/18 11/28/18 Range/Units 15:17 17:43 17:46 Hgb (13.0-17.5) gm/dL Hct (39.0-53.0) % MCHC (31.0-37.0) g/dL RDW (11.5-15.5) % APTT (22.0-30.0) sec Sodium (137-145) mmol/L Carbon Dioxide (22-30) mmol/L BUN (9-20) mg/dL Creatinine (0.66-1.25) mg/dL Glucose (74-99) mg/dL POC Glucose (mg/dL) 386 H 358 H (75-99) mg/dL Phosphorus (2.5-4.5) mg/dL Troponin I 0.166 H* (0.000-0.034) ng/mL 11/28/18 11/28/18 11/28/18 Range/Units 18:39 19:12 19:44 Hgb (13.0-17.5) gm/dL Hct (39.0-53.0) % MCHC (31.0-37.0) g/dL RDW (11.5-15.5) % APTT (22.0-30.0) sec Sodium (137-145) mmol/L Carbon Dioxide (22-30) mmol/L BUN (9-20) mg/dL Creatinine (0.66-1.25) mg/dL Glucose (74-99) mg/dL POC Glucose (mg/dL) 294 H 279 H 257 H (75-99) mg/dL Phosphorus (2.5-4.5) mg/dL Troponin I (0.000-0.034) ng/mL 11/28/18 11/28/18 11/28/18 Range/Units 20:09 20:59 21:38 Hgb (13.0-17.5) gm/dL Hct (39.0-53.0) % MCHC (31.0-37.0) g/dL RDW (11.5-15.5) % APTT 38.9 H (22.0-30.0) sec Sodium (137-145) mmol/L Carbon Dioxide (22-30) mmol/L BUN (9-20) mg/dL Creatinine (0.66-1.25) mg/dL Glucose (74-99) mg/dL POC Glucose (mg/dL) 198 H 123 H (75-99) mg/dL Phosphorus (2.5-4.5) mg/dL Troponin I (0.000-0.034) ng/mL 11/28/18 11/28/18 11/29/18 Range/Units 22:21 23:12 00:04 Hgb (13.0-17.5) gm/dL Hct (39.0-53.0) % MCHC (31.0-37.0) g/dL RDW (11.5-15.5) % APTT (22.0-30.0) sec Sodium (137-145) mmol/L Carbon Dioxide (22-30) mmol/L BUN (9-20) mg/dL Creatinine (0.66-1.25) mg/dL Glucose (74-99) mg/dL POC Glucose (mg/dL) 127 H 118 H (75-99) mg/dL Phosphorus (2.5-4.5) mg/dL Troponin I 0.169 H* (0.000-0.034) ng/mL 11/29/18 11/29/18 11/29/18 Range/Units 00:46 02:26 02:28 Hgb (13.0-17.5) gm/dL Hct (39.0-53.0) % MCHC (31.0-37.0) g/dL RDW (11.5-15.5) % APTT 90.7 H (22.0-30.0) sec Sodium (137-145) mmol/L Carbon Dioxide (22-30) mmol/L BUN (9-20) mg/dL Creatinine (0.66-1.25) mg/dL Glucose (74-99) mg/dL POC Glucose (mg/dL) 106 H 116 H (75-99) mg/dL Phosphorus (2.5-4.5) mg/dL Troponin I (0.000-0.034) ng/mL 11/29/18 11/29/18 11/29/18 Range/Units 04:20 04:20 05:03 Hgb 11.4 L (13.0-17.5) gm/dL Hct 37.6 L (39.0-53.0) % MCHC 30.3 L (31.0-37.0) g/dL RDW 15.9 H (11.5-15.5) % APTT (22.0-30.0) sec Sodium 135 L (137-145) mmol/L Carbon Dioxide 17 L (22-30) mmol/L BUN 36 H (9-20) mg/dL Creatinine 1.51 H (0.66-1.25) mg/dL Glucose 121 H (74-99) mg/dL POC Glucose (mg/dL) 150 H (75-99) mg/dL Phosphorus 5.1 H (2.5-4.5) mg/dL Troponin I (0.000-0.034) ng/mL 11/29/18 11/29/18 Range/Units 06:50 09:24 Hgb (13.0-17.5) gm/dL Hct (39.0-53.0) % MCHC (31.0-37.0) g/dL RDW (11.5-15.5) % APTT 52.6 H (22.0-30.0) sec Sodium (137-145) mmol/L Carbon Dioxide (22-30) mmol/L BUN (9-20) mg/dL Creatinine (0.66-1.25) mg/dL Glucose (74-99) mg/dL POC Glucose (mg/dL) 162 H (75-99) mg/dL Phosphorus (2.5-4.5) mg/dL Troponin I (0.000-0.034) ng/mL Assessment and Plan Assessment: Impression: 1 hypotension and acute collapse with loss of consciousness, syncope, most likely cardiac in nature, differential diagnoses includes cardiac arrhythmia, unexplained hypotension, responded to fluids and pressors. And his mental status is basically back to normal today. 2 history of multivessel coronary artery disease and multiple interventions 3 ischemic cardiomyopathy and LV dysfunction ejection fraction of 20% 4 moderate degree of pulmonary hypertension 5 history of pulmonary embolism 6 history of cardiac arrest 7 obstructive sleep apnea syndrome needs to have outpatient workup 8 diabetes 9 hypertension 10 hyperlipidemia 11 history of deep vein thromboses and pulmonary embolism Recommendation: Continue to monitor the patient in the ICU, titrate and discontinue norepinephrine today, watch fluid status closely and correct electrolytes accordingly, condition remains critical, patient is being followed by cardiology as his main issue seems to be cardiac related. We'll continue to follow. Time with Patient: Less than 30
[2018-11-29] MEDS: HEPARIN SOD,PORK IN 0.45% NACL 25,000 UNIT in 0.45% NACL 1 250ML.BAG IV SCH (14:03)
[2018-11-29] MEDS: ACETAMINOPHEN TAB 325 MG TAB PO PRN (14:11)
[2018-11-29 14:53] VITALS: BMI 38.9
--- NOTE | 2018-11-29 16:48 | PN ---
PROGRESS NOTE DATE OF SERVICE: 11/29/2018 This 42-year-old gentleman who was admitted with syncope had possibly cardiac arrhythmia. Patient also had troponin elevation, indicating possible acute non-ST- segment-elevation myocardial infarction. The patient also had some hypotension. The patient is rather drowsy. The patient is complaining of some chest pain, possibly musculoskeletal pain secondary to the cardiac compression the patient had a few weeks ago. The patient was on Levophed drip overnight. Currently the patient is off Levophed drip. Cardiology is following the patient closely. The most recent chest x- ray, which was reviewed personally by me, showed some CHF and pulmonary vascular congestion. Otherwise, a 2D echo with Doppler was done today that showed an ejection fraction about 20% to 25% with global hypokinesia and mild enlargement of the right ventricle, also. Past medical history reviewed. REVIEW OF SYSTEMS: CARDIOVASCULAR SYSTEM: As mentioned earlier. RESPIRATORY SYSTEM: As mentioned earlier. GI: No nausea, vomiting. : No dysuria or retention. NERVOUS SYSTEM: No numbness, weakness. ALLERGY/IMMUNOLOGY: No asthma or hayfever. MUSCULOSKELETAL: As mentioned earlier. CURRENT MEDICATIONS: 1. Ventolin 2.5 q.6 p.r.n. 2. Xanax 0.25 t.i.d. 3. Aspirin 81 mg daily. 4. Plavix 75 mg each morning. 5. Cymbalta 60 mg p.o. b.i.d. 6. Heparin drip. 7. Dilaudid 0.5 mg q.6 p.r.n. 8. Vistaril 50 mg at bedtime. 9. NovoLog before meals and at bedtime. 10.Levemir 50 units subcutaneously at bedtime. 11.Ativan 0.5 mg q.6 p.r.n. 12.Narcan. 13.Nitrostat. 14.Protonix 40 mg daily. 15.Mysoline 100 mg p.o. b.i.d. 16.Ranexa 500 mg p.o. b.i.d. 17.Restoril p.r.n. PHYSICAL EXAMINATION: Patient is alert, oriented x2. Pulse 88, blood pressure 119/61, respiration 12, temperature normal, pulse ox normal. HEENT: Conjunctivae normal. NECK: No jugular venous distention. CARDIOVASCULAR SYSTEM: S1, S2 muffled. RESPIRATORY SYSTEM: Breath sounds diminished at the bases. Scattered rhonchi and crackles. ABDOMEN: Soft, obese, non-tender. No mass palpable. LEGS: Minimal edema. NERVOUS SYSTEM: Diffusely weak. JOINTS: No active deforming arthropathy. LABS: WBC 7.6, hemoglobin 11.4. Sodium 135, potassium 4.9, creatinine 1.51. Troponin 0.169. ASSESSMENT: 1. Syncope with possible acute iom-BA-bfiegbr-elevation myocardial infarction with cardiogenic shock. 2. Possible cardiac arrhythmia on admission apparently no evidence of ventricular fibrillation on the AICD interrogation currently. 3. History of recent coronary artery disease, stent placement at [facility]. 4. History of recent multiple cardiac arrests. 5. Increased creatinine with chronic kidney disease, stage III. 6. Hyponatremia. 7. Diabetes mellitus, type 2, uncontrolled. 8. Troponin 0.221. 9. Anemia, normocytic; anemia of chronic disease. 10.History of obesity with body mass index 38.4. 11.History of asthma. 12.History of coronary artery disease. 13.History of congestive heart failure. 14.History of cerebrovascular accident, transient ischemic attack. 15.Diabetes mellitus, type 2. 16.History of deep vein thrombosis. 17.History of hypertension. 18.Hyperlipidemia. 19.History of pneumonia. 20.History of obstructive sleep apnea. 21.History of multivessel coronary artery disease. 22.Ischemic cardiomyopathy. 23.History of diabetic peripheral neuropathy. 24.Obstructive sleep apnea. 25.Degenerative joint disease. 26.History of suicidal attempts previously. 27.History of gastroparesis. 28.History of psoriasis. 29.History of transient ischemic attack. 30.History of pseudoaneurysm of the left groin. 31.History of methicillin-resistant Staphylococcus aeruginosa. 32.History of automated implantable cardioverter defibrillator. 33.History of coronary artery disease, stent. 34.History of biventricular pacemaker, automated implantable cardioverter defibrillator. 35.History of anxiety, depression, post-traumatic stress disorder. 36.Congestive heart failure with chronic systolic dysfunction, ejection fraction 20% to 25%. 37.FULL CODE. RECOMMENDATIONS AND DISCUSSION: In this 42-year-old gentleman who presented with multiple complex medical issues, we will monitor the patient closely, continue the current medications, continue with symptomatic treatment. Will monitor the patient closely in the ICU. Continue with antiplatelet agents, IV heparin. Continue to monitor blood sugars closely. The patient's blood pressure is still borderline. We will continue to monitor. Levophed is off. Follow closely with Cardiology, Dr. Ibarra, ICU. Discussed with the patient. Discussed with the family. Discussed with staff. Further recommendations to follow. BEATRIZ / CHRISTINEN: [id number] / MTDD
[2018-11-29 16:53] LABS: Glucose,Whole Blood 51 mg/dL (75-99)
[2018-11-29 17:09] LABS: Glucose,Whole Blood 71 mg/dL (75-99)
[2018-11-29] MEDS: NOREPINEPHRINE 32 MG in SODIUM CHLORIDE 0.9% 218 ML IV SCH (20:00)
[2018-11-29] MEDS ORDERED: NOREPINEPHRINE 4 MG in SODIUM CHLORIDE 0.9% 250 ML IV SCH (20:15)
[2018-11-29] MEDS: NOREPINEPHRINE 32 MG in SODIUM CHLORIDE 0.9% 218 ML IV ONE (20:20)
--- NOTE | 2018-11-29 20:31 | P.CRDCN ---
History of Present Illness History of present illness: This is Dr. Kang dictating a consult on this patient The patient was interviewed and examined by me IMPRESSION / ASSESSMENT: 1 episode of loss of consciousness associated with low blood pressure. ICD was interrogated and there are no episodes of ventricular tachycardia ventricular fibrillation. Known coronary artery disease status post coronary artery stenting Recent myocardial infarction and possible stenting [facility]. I do not have the reports of this time Extensive history of coronary artery disease and stenting Ischemic adenopathy status post biventricular ICD implant Type 2 diabetes PLAN: Observation only for now hold all cardiac medications until blood pressure improves and patient is off pressors and will restart thereafter HPI Patient had breakfast and went be on the counter. As you stenting of the counter he collapsed. His blood pressure was found to be low. He had no prior chest discomfort ROS: No fever chills or rigors, no cough, phlegm or expectoration, no nausea, vomiting or diarrhea, no hematuria, dysuria, no musculoskeletal complaints, no strokes or seizures, no skin lesions. EXAMINATION: Initially the blood pressure was low and I sinus blood pressure was in the 80s and 90s and he is on pressors pulse rate in the 70s paced Afebrile Breath sounds are clear no rhonchi no crackles Abdomen soft nontender Extremities warm no edema REVIEW OF LABS, ECG & MEDICAL DATA Troponins are mildly abnormal showing a downward trend. He had a recent myocardial infarction and was sent [facility] 2-D echo shows a left total ejection fraction of 20 -25% Twelve-lead ECG shows biventricular paced rhythm. There is no evidence for pacemaker failure on this twelve-lead ECG Past Medical History Past Medical History: Asthma, Coronary Artery Disease (CAD), Chest Pain / Carolyn na, Heart Failure, CVA/TIA, Diabetes Mellitus, Deep Vein Thrombosis (DVT), GERD/Reflux, Hyperlipidemia, Hypertension, Myocardial Infarction (VA), Osteoarthritis (OA), Pneumonia, Skin Disorder, Sleep Apnea/CPAP/BIPAP Additional Past Medical History / Comment(s): multiple vessel CAD, ischemic cardiomyopathy, diabetic neuropathy bilateral hands and feet, hypertensive cardiovascular disease, SHELIA with no device, chronic gastritis, degenerative disc disease, chronic back pain, depression with hx of suicide attempts, gastroparesis, psoriasis, UTI, migraines, TIA, PUD, hiatal hernia, L rotator cuff tear, bronchitis, pseudoaneurysm L groin post procedure. 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 Last Myocardial Infarction Date:: October 2017 History of Any Multi-Drug Resistant Organisms: MRSA Date of last positivie culture/infection: 11/05/17 (Culture done at [facility]) MDRO Source:: legs Past Surgical History: AICD, Appendectomy, Cholecystectomy, Heart Catheterization With Stent, Hernia Repair Additional Past Surgical History / Comment(s): Pt has had multiple cardiac procedures- caths/stents/PTCA, last stent placed at [facility] -October2017, S[place]AN[place]H, R inguinal hernia repair, umbilical hernia repair, right orchiectomy due to necrosis, right hand surgery r/t injury, colonoscopy, cystoscopy (scraped bladder parrish), stents 10/2017, Past Anesthesia/Blood Transfusion Reactions: No Reported Reaction Additional Past Anesthesia/Blood Transfusion Reaction / Comment(s): . Date of Last Stent Placement:: 10/2017 Type of Cardiac Device: Biventricular Pacemaker, AICD Device Placement Date:: 09/19/15 Past Psychological History: Anxiety, Depression, PTSD Additional Psychological History / Comment(s): Several suicide attempts with use of insulin. PTSD - in 2000 his 3mo old son in his arms (born 2 months premature). He has a walker at home if needed. He drives.pt has 2 adult stepchildren at home with him most of the time. Spouse manages his medications. Smoking Status: Never smoker Past Alcohol Use History: None Reported Additional Past Alcohol Use History / Comment(s): Past alcohol abuse - pt states he quit drinking over 8yrs ago. Past Drug Use History: None Reported Additional Drug Use History / Comment(s): Pt has smoked marijuana in the past - last smoked in 1999. - Past Family History Mother Family Medical History: Coronary Artery Disease (CAD), Myocardial Infarction (VA) Additional Family Medical History / Comment(s): 7 VA and faulty heart valve. Pt does not know the age when mother had her VA's. Father History Unknown: Yes Additional Family Medical History / Comment(s): Does not know who father is. Brother(s) Family Medical History: Cancer, Congestive Heart Failure (CHF), Myocardial Infarction (VA) Additional Family Medical History / Comment(s): Parkinsons. Pt does not know at what age his brother had an VA. Patient's other brother has lung CA Patient has Family Medical History: No Reported History Additional Family Medical History / Comment(s): There is a strong family history for heart disease, hypertension, and diabetes. Medications and Allergies Home Medications Medication Instructions Recorded Confirmed Type Clopidogrel [Plavix] 75 mg PO QAM 12/03/17 11/28/18 History Digoxin [Digitek] 125 mcg PO DAILY 02/01/18 11/28/18 History Spironolactone [Aldactone] 25 mg PO DAILY 02/01/18 11/28/18 History Albuterol Inhaler [Ventolin Hfa 2 puff INHALATION RT-Q6H PRN 04/01/18 11/28/18 History Inhaler] Pantoprazole [Protonix] 40 mg PO DAILY 04/01/18 11/28/18 History Primidone [Mysoline] 100 mg PO BID 04/01/18 11/28/18 History DULoxetine HCL [Cymbalta] 60 mg PO BID capsule. 05/10/18 11/28/18 Rx Aspirin EC [Ecotrin Low Dose] 81 mg PO DAILY 07/20/18 11/28/18 History Torsemide [Demadex] 20 mg PO BID 10/31/18 11/28/18 History Ranolazine [Ranexa] 500 mg PO BID 11/06/18 11/28/18 History Insulin Aspart [NovoLOG Flexpen] 16 units SQ AC-TID 11/08/18 11/28/18 History Insulin Glargine,Hum.rec.anlog 50 unit SQ HS 11/08/18 11/28/18 History [Basaglar Kwikpen U-100] Metoprolol Tartrate [Lopressor] 50 mg PO BID 11/08/18 11/28/18 History Nitroglycerin Sl Tabs [Nitrostat] 0.4 mg SUBLINGUAL Q5M PRN 11/08/18 11/28/18 History Tamsulosin HCl [Flomax] 0.4 mg PO DAILY 11/08/18 11/28/18 History Atorvastatin [Lipitor] 40 mg PO HS #30 tablet 11/10/18 11/28/18 Rx hydrOXYzine PAMOATE 50 mg PO HS PRN 11/14/18 11/28/18 History Carvedilol [Coreg] 3.125 mg PO BID 11/28/18 11/28/18 History Furosemide [Lasix] 20 mg PO DAILY 11/28/18 11/28/18 History Isosorbide Dinitrate 10 mg PO TID 11/28/18 11/28/18 History Lisinopril [Prinivil] 10 mg PO DAILY 11/28/18 11/28/18 History hydrALAZINE HCL [Apresoline] 25 mg PO TID 11/28/18 11/28/18 History Allergies Allergy/AdvReac Type Severity Reaction Status Date / Time erythromycin base Allergy Severe Rash/Hives Verified 11/28/18 10:16 [Erythromycin Base] cephalexin monohydrate Allergy Unknown Rash/Hives Verified 11/28/18 10:16 [From Keflex] codeine Allergy Unknown Unknown Verified 11/28/18 10:16 meclizine Allergy Unknown Unknown Verified 11/28/18 10:16 Penicillins Allergy Unknown Rash/Hives Verified 11/28/18 10:16 shellfish derived Allergy Unknown Anaphylaxis Verified 11/28/18 10:16 Fish Containing Products Allergy Anaphylaxis Verified 11/28/18 10:16 [Fish] Iodinated Contrast- Oral and Allergy Anaphylaxis Verified 11/28/18 10:16 IV Dye naproxen AdvReac Unknown Compromises Verified 11/28/18 10:16 Kidney Function atorvastatin calcium AdvReac Myalgia Verified 11/28/18 10:16 [From Lipitor] hydrocodone [From [place]] AdvReac Rapid Verified 11/28/18 10:16 Heart Rate Physical Exam Vitals: Vital Signs Temp Pulse Resp BP Pulse Ox 11/29/18 19:00 77 17 86/56 97 11/29/18 18:00 80 19 80/59 98 11/29/18 17:00 73 27 H 96/65 95 11/29/18 16:00 96.5 F L 71 15 103/34 96 11/29/18 15:00 74 16 103/34 97 11/29/18 14:30 74 19 87/33 96 11/29/18 14:00 80 18 84/50 96 11/29/18 13:30 80 17 104/65 97 11/29/18 13:15 77 30 H 104/65 98 11/29/18 13:00 88 12 119/61 98 11/29/18 12:45 87 14 107/70 97 11/29/18 12:30 76 15 107/76 98 11/29/18 12:15 75 12 86/74 98 11/29/18 12:00 97.6 F 78 21 92/67 94 L 11/29/18 11:45 77 16 107/69 93 L 11/29/18 11:30 76 18 92/68 95 11/29/18 11:15 77 21 101/90 91 L 11/29/18 11:00 77 17 104/42 93 L 11/29/18 10:45 75 25 H 94/61 91 L 11/29/18 10:30 74 15 104/64 95 11/29/18 10:15 73 16 104/64 97 11/29/18 10:00 82 22 96/59 100 11/29/18 09:45 75 14 87/64 97 11/29/18 09:30 70 14 106/60 98 11/29/18 09:15 75 19 103/70 100 11/29/18 09:00 77 15 106/64 99 11/29/18 08:45 72 12 105/85 100 11/29/18 08:30 76 18 105/69 99 11/29/18 08:15 79 22 96/70 100 11/29/18 08:00 97.5 F L 74 15 104/72 95 11/29/18 07:45 74 16 105/63 98 11/29/18 07:30 73 15 102/71 94 L 11/29/18 07:15 73 19 97/68 95 11/29/18 07:14 96 11/29/18 07:00 73 9 L 95/71 98 11/29/18 06:45 75 16 99/68 93 L 11/29/18 06:30 75 15 94/67 96 11/29/18 06:15 74 13 99/67 99 11/29/18 06:00 37 L 12 97/73 99 11/29/18 05:45 77 10 L 111/76 98 11/29/18 05:30 74 16 102/74 97 11/29/18 05:15 73 13 108/73 97 11/29/18 05:00 74 16 108/71 98 11/29/18 04:45 71 15 104/75 97 11/29/18 04:30 74 16 102/70 95 11/29/18 04:15 76 18 118/92 96 11/29/18 04:00 97.2 F L 74 17 90/62 96 11/29/18 03:45 73 19 99/51 92 L 11/29/18 03:30 73 19 91/57 95 11/29/18 03:15 74 35 H 98/68 95 11/29/18 03:00 74 20 97/60 94 L 11/29/18 02:45 71 12 111/74 100 11/29/18 02:30 71 20 99/69 99 11/29/18 02:15 71 15 99/70 90 L 11/29/18 02:00 72 17 103/71 96 11/29/18 01:45 70 13 98/50 96 11/29/18 01:30 69 15 97/64 97 11/29/18 01:15 70 14 94/75 98 11/29/18 01:00 71 16 94/67 97 11/29/18 00:45 69 13 90/66 99 11/29/18 00:30 70 17 101/70 95 11/29/18 00:15 69 16 107/78 98 11/29/18 00:14 69 13 107/78 99 11/29/18 00:00 97.0 F L 70 13 113/80 98 11/28/18 23:45 71 17 115/86 96 11/28/18 23:30 71 17 107/76 97 11/28/18 23:15 68 16 112/80 99 11/28/18 23:00 68 16 105/75 96 11/28/18 22:45 70 26 H 104/68 96 11/28/18 22:30 70 19 81/40 95 11/28/18 22:15 71 17 99/63 94 L 11/28/18 22:00 70 16 100/71 93 L 11/28/18 21:45 71 16 106/69 99 11/28/18 21:30 70 18 104/70 99 11/28/18 21:15 58 L 21 102/67 98 11/28/18 21:00 53 L 18 107/62 98 11/28/18 20:45 42 L 18 105/77 92 L Intake and Output 11/29/18 11/29/18 11/29/18 06:59 14:59 22:59 Intake Total 872.203 8991.710 850 Output Total 650 600 275 Balance 236.446 833.710 575 Intake: IV 800 600 250 Sodium Chloride 0.9% 1, 800 600 250 000 ml @ 50 mls/hr IV . Q20H [facility] Rx#:[id number] Intake, IV Titration 86.446 113.710 Amount Heparin Sod,Pork in 0.45% 82.87 99.769 NaCl 25,000 unit In 0.45 % NaCl 1 250ml.bag @ 9.25 UNITS/KG/HR 9.986 mls/hr IV .Q24H [facility] Rx#: [id number] Norepinephrine 32 mg In 3.576 13.941 Sodium Chloride 0.9% 218 ml @ 0.05 MCG/KG/MIN 2.53 mls/hr IV .Q24H [facility] Rx#: [id number] Oral 720 600 Output: Urine 650 600 275 Other: Voiding Method Urinal Urinal Urinal # Voids 1 Weight 109.4 kg 109.4 kg Results 11/29/18 04:20 11/29/18 04:20 Cardiac Enzymes 11/29/18 Range/Units 00:04 Troponin I 0.169 H* (0.000-0.034) ng/mL Coagulation 11/28/18 11/29/18 11/29/18 Range/Units 20:09 02:26 09:24 APTT 38.9 H 90.7 H 52.6 H (22.0-30.0) sec CBC 11/29/18 Range/Units 04:20 WBC 7.6 (3.8-10.6) k/uL RBC 4.30 (4.30-5.90) m/uL Hgb 11.4 L (13.0-17.5) gm/dL Hct 37.6 L (39.0-53.0) % Plt Count 271 (150-450) k/uL Comprehensive Metabolic Panel 11/29/18 Range/Units 04:20 Sodium 135 L (137-145) mmol/L Potassium 4.9 (3.5-5.1) mmol/L Chloride 107 (98-107) mmol/L Carbon Dioxide 17 L (22-30) mmol/L BUN 36 H (9-20) mg/dL Creatinine 1.51 H (0.66-1.25) mg/dL Glucose 121 H (74-99) mg/dL Calcium 8.5 (8.4-10.2) mg/dL Current Medications Generic Name Dose Route Start Last Admin Trade Name Freq PRN Reason Stop Dose Admin Acetaminophen 650 mg 11/29/18 14:06 11/29/18 14:11 Tylenol Tab PO 650 mg Q6HR PRN Administration Fever and/ or Pain Albuterol Sulfate 2.5 mg 11/28/18 15:08 Ventolin Nebulized INHALATION RT-Q6H PRN Shortness Of Breath Alprazolam 0.25 mg 11/28/18 15:10 Xanax PO TID PRN Anxiety Aspirin 81 mg 11/29/18 09:00 11/29/18 10:11 Aspirin PO 81 mg DAILY JAKE Administration Clopidogrel Bisulfate 75 mg 11/29/18 09:00 11/29/18 10:12 Plavix PO 75 mg QAM JAKE Administration Duloxetine HCl 60 mg 11/28/18 21:00 11/29/18 08:13 Cymbalta PO 60 mg BID JAKE Administration Hydromorphone HCl 0.5 mg 11/28/18 16:48 11/29/18 15:12 Dilaudid IVP 0.5 mg Q6HR PRN Administration Pain Hydroxyzine Pamoate 50 mg 11/28/18 15:08 Vistaril PO HS PRN Itching Sodium Chloride 1,000 mls @ 50 mls/hr 11/28/18 16:00 11/29/18 12:59 Saline 0.9% IV 50 mls/hr .Q20H JAKE Administration Norepinephrine Bitartrate 4 mg 254 mls @ 20.841 mls/hr 11/29/18 20:15 / Sodium Chloride IV .[id number] [facility] Protocol 0.05 MCG/KG/MIN Insulin Aspart 0 unit 11/29/18 07:30 11/29/18 16:56 Novolog SQ Not Given ACHS [facility] Protocol Insulin Aspart 10 unit 11/30/18 07:30 Novolog SQ AC-TID [facility] Insulin Detemir 35 unit 11/29/18 21:00 Levemir SQ HS [facility] Lorazepam 0.5 mg 11/28/18 16:48 Ativan IV Q6HR PRN Anxiety Naloxone HCl 0.2 mg 11/28/18 13:23 Narcan IV Q2M PRN Opioid Reversal Nitroglycerin 0.4 mg 11/28/18 15:08 Nitrostat SUBLINGUAL Q5M PRN Chest Pain Patient's Own ( 1 each 11/29/18 21:00 Rosuvastatin 40 Mg) PO HS JAKE Pantoprazole Sodium 40 mg 11/29/18 07:30 11/29/18 08:13 Protonix PO 40 mg AC-BRKFST JAKE Administration Primidone 100 mg 11/28/18 21:00 11/29/18 08:13 Mysoline PO 100 mg BID JAKE Administration Ranolazine 500 mg 11/28/18 21:00 11/29/18 10:12 Ranexa PO 500 mg BID JAKE Administration Temazepam 15 mg 11/28/18 15:10 Restoril PO HS PRN Insomnia Intake and Output 11/29/18 11/29/18 11/29/18 06:59 14:59 22:59 Intake Total 924.160 6368.710 850 Output Total 650 600 275 Balance 236.446 833.710 575 Intake: IV 800 600 250 Sodium Chloride 0.9% 1, 800 600 250 000 ml @ 50 mls/hr IV . Q20H [facility] Rx#:[id number] Intake, IV Titration 86.446 113.710 Amount Heparin Sod,Pork in 0.45% 82.87 99.769 NaCl 25,000 unit In 0.45 % NaCl 1 250ml.bag @ 9.25 UNITS/KG/HR 9.986 mls/hr IV .Q24H [facility] Rx#: [id number] Norepinephrine 32 mg In 3.576 13.941 Sodium Chloride 0.9% 218 ml @ 0.05 MCG/KG/MIN 2.53 mls/hr IV .Q24H [facility] Rx#: [id number] Oral 720 600 Output: Urine 650 600 275 Other: Voiding Method Urinal Urinal Urinal # Voids 1 Weight 109.4 kg 109.4 kg Patient Weight 11/30/18 06:59 Weight 109.4 kg 11/29/18 04:20 11/29/18 04:20
[2018-11-29 21:26] LABS: Glucose,Whole Blood 136 mg/dL (75-99)
[2018-11-29] MEDS: INSULIN DETEMIR (LEVEMIR) 100 UNIT/ML SYR SQ SCH (21:34)
[2018-11-29] MEDS: ROSUVASTATIN 40 MG PO SCH (21:50)
[2018-11-30] MEDS: HYDROmorphone 0.5 MG/0.5 ML SYRINGE IVP PRN ×4 (04:33→21:17)
[2018-11-30 04:44] LABS: Basophils # (A) 0.1 k/uL (0-0.2); Basophils % (A) 1 %; Eosinophils # (A) 0.2 k/uL (0-0.7); Eosinophils % (A) 3 %; HCT 34.7 % (39.0-53.0); HGB 10.1 gm/dL (13.0-17.5); Hypochromasia Marked; Lymphocytes # (A) 1.1 k/uL (1.0-4.8); Lymphocytes % (A) 17 %; MCH 25.1 pg (25.0-35.0); MCV 86.5 fL (80.0-100.0); Mean Platelet Volume 7.6; Monocytes # (A) 0.4 k/uL (0-1.0); Monocytes % (A) 7 %; Neutrophils # (A) 4.4 k/uL (1.3-7.7); Neutrophils % (A) 70 %; Platelet Count 253 k/uL (150-450); Poikilocytosis Slight; RBC 4.01 m/uL (4.30-5.90); RDW 15.9 % (11.5-15.5); WBC 6.3 k/uL (3.8-10.6)
[2018-11-30 04:56] LABS: African American GFR (CKD) >90 (>60 ml/min/1.73 sqM); Anion Gap 8 mmol/L; Blood Urea Nitrogen 27 mg/dL (9-20); Calcium 8.5 mg/dL (8.4-10.2); Carbon Dioxide 20 mmol/L (22-30); Chloride 105 mmol/L (98-107); Glucose 162 mg/dL (74-99); Sodium 133 mmol/L (137-145)
[2018-11-30 06:55] LABS: Glucose,Whole Blood 171 mg/dL (75-99)
--- NOTE | 2018-11-30 07:01 | XR ---
EXAMINATION TYPE: XR chest 1V portable DATE OF EXAM: 11/30/2018 COMPARISON: 11/29/2018 HISTORY: Shortness of breath and congestive heart failure TECHNIQUE: Single frontal view of the chest is obtained. FINDINGS: Similar-appearing small right pleural effusion that is extends up the right lateral pleura l surface and enlarged cardiac mediastinal silhouette. Minimal interstitial prominence and right basi lar airspace disease. Cardiac stent is noted with dual lead left-sided cardiac device. No pneumothora x is seen. IMPRESSION: Similar-appearing sequela of congestive heart failure in comparison to 11/29/2018.
[2018-11-30] MEDS: INSULIN ASPART (NovoLOG) 100 UNIT/ML VIAL SQ SCH ×7 (07:02→20:44)
[2018-11-30] MEDS: ACETAMINOPHEN TAB 325 MG TAB PO PRN ×2 (08:20→15:04)
[2018-11-30] MEDS: CLOPIDOGREL 75 MG TAB PO SCH (08:20)
[2018-11-30] MEDS: RANOLAZINE 500 MG TAB.ER.12H PO SCH ×2 (08:21→19:58)
[2018-11-30] MEDS: ASPIRIN 81 MG PO SCH (08:21)
[2018-11-30] MEDS: PANTOPRAZOLE 40 MG TABLET PO SCH (08:21)
[2018-11-30] MEDS: PRIMIDONE 50 MG TAB PO SCH ×2 (08:21→19:59)
[2018-11-30] MEDS: SODIUM CHLORIDE 0.9% 1,000 ML IV SCH ×2 (08:22→10:04)
[2018-11-30] MEDS: DULoxetine HCL 60 MG CAPSULE.DR PO SCH ×2 (08:24→19:59)
--- NOTE | 2018-11-30 11:09 | P.PN ---
Subjective Progress Note Date: 11/30/18 Principal diagnosis: Hypotension with acute collapse and loss of consciousness, cardiac in nature unless otherwise. This is a 42-year-old male with an extensive cardiac history. Patient comes in today because he had a syncopal episode at a restaurant. Patient states he felt lightheaded and next thing he knows everybody extending over. Patient complains of chest pain anteriorly and laterally. Patient states he thinks she might of her discomfort when he fell. Patient's not sure if he hit his head or not. Patient states he is short of breath. Patient denies any diaphoretic episodes. Patient denies any nausea at this time. Patient denies any abdominal pain. Patient denies any extremity pain. Patient denies any palpitations. Patient does state that he feels extremely lightheaded. Patient was seen by Dr. Valerio when he was admitted to the ICU yesterday, and he felt that the patient had hypotension, mental status change and collapse secondary to hypotension which is felt to be cardiac in nature unless proven otherwise. Patient is known to have history of coronary artery disease, multiple coronary interventions and stenting, severe ischemic cardiomyopathy, previous AICD placement, obstructive sleep apnea syndrome, and today the patient is barely on any norepinephrine, comfortable, in no distress. His norepinephrine is being titrated, added to likely be discontinued in the next couple of hours. Patient was reevaluated today on 11/30/2018, we are seeing him again for one episode of loss of consciousness associated with low blood pressure. His ICD was interrogated, and there was no evidence of ventricular tachycardia or ventricular fibrillation. Patient is known to have severe coronary artery disease and stenting, he has ischemic cardiomyopathy and previous biventricular ICD implant. Today the patient is doing fairly well, not requiring any pressors or any inotropes, patient is hemodynamically stable, urine output is excellent, last night his blood pressure was marginal. Was on norepinephrine for a couple of hours, and has been off norepinephrine since 1 AM. Labs are unremarkable renal functioning is improving, creatinine is down to 1.14. It was 1.76 on admission. Chest x-ray continues to show evidence of mild pulmonary edema. However the patient is clinically asymptomatic, no cough no wheezing no shortness of breath no chest pain. Objective - Vital Signs Vital signs: Vital Signs Temp 97.9 F 11/30/18 08:00 Pulse 88 11/30/18 10:00 Resp 22 11/30/18 10:00 BP 110/60 11/30/18 10:00 Pulse Ox 98 11/30/18 10:00 Intake & Output 11/29/18 11/30/18 11/30/18 18:59 06:59 18:59 Intake Total 2233.710 608.368 290 Output Total 875 650 300 Balance 1358.710 -41.632 -10 Weight 109.4 kg 112.2 kg Intake: IV 800 600 170 Sodium Chloride 0.9% 1, 800 600 170 000 ml @ 20 mls/hr IV . Q24H [facility] Rx#:[id number] Intake, IV Titration 113.710 8.368 Amount Heparin Sod,Pork in 0.45% 99.769 NaCl 25,000 unit In 0.45 % NaCl 1 250ml.bag @ 9.25 UNITS/KG/HR 9.986 mls/hr IV .Q24H [facility] Rx#: [id number] Norepinephrine 32 mg In 13.941 0 Sodium Chloride 0.9% 218 ml @ 0.05 MCG/KG/MIN 2.53 mls/hr IV .Q24H [facility] Rx#: [id number] Norepinephrine 32 mg In 8.368 Sodium Chloride 0.9% 218 ml @ 0.05 MCG/KG/MIN 2. 564 mls/hr IV .Q24H [facility] Rx#:[id number] Oral 1320 120 Output: Urine 875 650 300 Other: Voiding Method Urinal Urinal Urinal # Voids 1 1 - Exam Physical Exam: Revealed a 42-year-old white male in no distress Head: Atraumatic, normocephalic. HEENT:[Neck is supple.] [No neck masses.] [No thyromegaly.] [No JVD.] Chest: Minimal fine crackles at the bases especially at the left base. No rhonchi no wheezes. Cardiac Exam: [Normal S1 and S2, no S3 gallop, no murmur.] Abdomen: [Soft, nontender, no megaly, no rebound, no guarding, normal bowel sounds.] Extremities: [No clubbing,1+ bipedala, no cyanosis.] Neurological Exam: [No focal neurologic deficit.]Alert oriented 3. Psychiatric: Normal mood affect and mental status examination. Skin: No rashes. Lymphatics: No lymphadenopathy. - Labs CBC & Chem 7: 11/30/18 04:19 11/30/18 04:19 Labs: Abnormal Lab Results - Last 24 Hours (Table) 11/29/18 11/29/18 11/29/18 Range/Units 04:20 16:51 17:07 RBC (4.30-5.90) m/uL Hgb (13.0-17.5) gm/dL Hct (39.0-53.0) % MCHC (31.0-37.0) g/dL RDW (11.5-15.5) % Sodium (137-145) mmol/L Carbon Dioxide (22-30) mmol/L BUN (9-20) mg/dL Glucose (74-99) mg/dL POC Glucose (mg/dL) 51 L 71 L (75-99) mg/dL Hemoglobin A1c 11.0 H (4.0-6.0) % 11/29/18 11/30/18 11/30/18 Range/Units 21:24 04:19 04:19 RBC 4.01 L (4.30-5.90) m/uL Hgb 10.1 L (13.0-17.5) gm/dL Hct 34.7 L (39.0-53.0) % MCHC 29.0 L (31.0-37.0) g/dL RDW 15.9 H (11.5-15.5) % Sodium 133 L (137-145) mmol/L Carbon Dioxide 20 L (22-30) mmol/L BUN 27 H (9-20) mg/dL Glucose 162 H (74-99) mg/dL POC Glucose (mg/dL) 136 H (75-99) mg/dL Hemoglobin A1c (4.0-6.0) % 11/30/18 Range/Units 06:54 RBC (4.30-5.90) m/uL Hgb (13.0-17.5) gm/dL Hct (39.0-53.0) % MCHC (31.0-37.0) g/dL RDW (11.5-15.5) % Sodium (137-145) mmol/L Carbon Dioxide (22-30) mmol/L BUN (9-20) mg/dL Glucose (74-99) mg/dL POC Glucose (mg/dL) 171 H (75-99) mg/dL Hemoglobin A1c (4.0-6.0) % Assessment and Plan Assessment: Impression: 1 hypotension and acute collapse with loss of consciousness, syncope, most likely cardiac in nature, 2 history of multivessel coronary artery disease and multiple interventions 3 ischemic cardiomyopathy and LV dysfunction ejection fraction of 20% 4 moderate degree of pulmonary hypertension 5 history of pulmonary embolism 6 history of cardiac arrest 7 obstructive sleep apnea syndrome needs to have outpatient workup 8 diabetes 9 hypertension 10 hyperlipidemia 11 history of deep vein thromboses and pulmonary embolism Recommendation: Continue present treatment plan, continue to monitor in the ICU for the next 24 hours, we will likely transfer to a monitor bed on selective in 24 hours assuming the patient does not require any pressors over the next 24 hours. Overall prognosis remains extremely poor and guarded considering his severe cardiomyopathy and underlying coronary artery disease. We'll continue to follow. Time with Patient: Less than 30
[2018-11-30 11:48] LABS: Glucose,Whole Blood 82 mg/dL (75-99)
--- NOTE | 2018-11-30 13:30 | P.PN ---
Subjective Minus sitting comfortably in a chair. His blood pressure is normal. Norepinephrine has been discontinued. Last night apparently his blood pressures in the 80s and he was symptomatic and the on-call oncologist was called and norepinephrine was started. The nurses have been able to taper off norepinephrine now. No chest discomfort dizziness lightheadedness he looks very comfortable He did not have any ICD shocks at this admission or just before it since november Afebrile 97.1F pulse rate in the 80s respiratory rate 16 blood pressure 97/55 mmHg Breath sounds are clear no rhonchi no crackles Heart sounds S1 and S2 normal no murmurs or gallop or rub Extremities warm no edema Impression 1 episode of syncope. No ventricular arrhythmias documented on ICD interrogation Known coronary artery disease ischemic adenopathy congestive heart failure status post biventricular ICD implantation Syncope was most likely related to low blood pressure Currently his cardiac medications are mostly and hold the exception of antiplatelet agents Abnormal cardiac enzymes Plan Hold off on starting cardiac medications but I will start atorvastatin 40 mg by mouth daily today If his blood pressure remained stable then tomorrow we will reintroduce his cardiac medications Objective - Vital Signs Vital signs: Vital Signs Temp 97.1 F L 11/30/18 12:00 Pulse 86 11/30/18 13:00 Resp 20 11/30/18 13:00 BP 87/59 11/30/18 13:00 Pulse Ox 97 11/30/18 13:00 Intake & Output 11/29/18 11/30/18 11/30/18 18:59 06:59 18:59 Intake Total 2233.710 608.368 950 Output Total 875 650 300 Balance 1358.710 -41.632 650 Weight 109.4 kg 112.2 kg Intake: IV 800 600 230 Sodium Chloride 0.9% 1, 800 600 230 000 ml @ 20 mls/hr IV . Q24H [facility] Rx#:[id number] Intake, IV Titration 113.710 8.368 Amount Heparin Sod,Pork in 0.45% 99.769 NaCl 25,000 unit In 0.45 % NaCl 1 250ml.bag @ 9.25 UNITS/KG/HR 9.986 mls/hr IV .Q24H [facility] Rx#: [id number] Norepinephrine 32 mg In 13.941 0 Sodium Chloride 0.9% 218 ml @ 0.05 MCG/KG/MIN 2.53 mls/hr IV .Q24H [facility] Rx#: [id number] Norepinephrine 32 mg In 8.368 Sodium Chloride 0.9% 218 ml @ 0.05 MCG/KG/MIN 2. 564 mls/hr IV .Q24H [facility] Rx#:[id number] Oral 1320 720 Output: Urine 875 650 300 Other: Voiding Method Urinal Urinal Toilet # Voids 1 1 - Labs CBC & Chem 7: 11/30/18 04:19 11/30/18 04:19 Labs: Abnormal Lab Results - Last 24 Hours (Table) 11/29/18 11/29/18 11/29/18 Range/Units 16:51 17:07 21:24 RBC (4.30-5.90) m/uL Hgb (13.0-17.5) gm/dL Hct (39.0-53.0) % MCHC (31.0-37.0) g/dL RDW (11.5-15.5) % Sodium (137-145) mmol/L Carbon Dioxide (22-30) mmol/L BUN (9-20) mg/dL Glucose (74-99) mg/dL POC Glucose (mg/dL) 51 L 71 L 136 H (75-99) mg/dL 11/30/18 11/30/18 11/30/18 Range/Units 04:19 04:19 06:54 RBC 4.01 L (4.30-5.90) m/uL Hgb 10.1 L (13.0-17.5) gm/dL Hct 34.7 L (39.0-53.0) % MCHC 29.0 L (31.0-37.0) g/dL RDW 15.9 H (11.5-15.5) % Sodium 133 L (137-145) mmol/L Carbon Dioxide 20 L (22-30) mmol/L BUN 27 H (9-20) mg/dL Glucose 162 H (74-99) mg/dL POC Glucose (mg/dL) 171 H (75-99) mg/dL
--- NOTE | 2018-11-30 15:07 | P.PN ---
Subjective Progress Note Date: 11/30/18 Principal diagnosis: Syncope Patient is a 48-year-old male with a known history of asthma,Coronary Artery Disease (CAD) with history of stent placement less than a year ago, cardi omyopathy ejection fraction 30-35% Chest Pain / Angina, Heart Failure, CVA/TIA, Diabetes Mellitus insulin-dependent, Deep Vein Thrombosis (DVT), GERD/Reflux, Hyperlipidemia, Hypertension, Myocardial Infarction ([place]), Osteoarthritis (OA), Pneumonia, Skin Disorder, Sleep Apnea/CPAP/BIPAP and other multiple medical problems came to ER with complaints of Syncopal episode. Patient was hypotensive and requiring pressor support. Currently patient is off the Levaquin drip. Patient was found to have slightly elevated troponin level on admission. 11/30/2018 Patient is currently sitting in a chair comfortably. Alert awake and oriented 3. Patient is still hypotensive. Otherwise patient is currently not requiring pressor support. No complains of chest pain or shortness of breath. Leg swelling improves. AICD was implanted to showed no evidence of arrhythmia. Patient was on pressors support briefly last night. Blood sugar is controlled. Creatinine level improved to 1.14 compared to 1.76 on admission. Chest x-ray showed similar-appearing cecal of congestive heart failure in comparison to 11/29/2018 No fever no chills. No nausea vomiting abdominal pain or diarrhea. No dysuria or hematuria. All other review of systems negative except the above Active Medications Generic Name Dose Route Start Last Admin Trade Name Freq PRN Reason Stop Dose Admin Acetaminophen 650 mg 11/29/18 14:06 11/30/18 08:20 Tylenol Tab PO 650 mg Q6HR PRN Administration Fever and/ or Pain Albuterol Sulfate 2.5 mg 11/28/18 15:08 Ventolin Nebulized INHALATION RT-Q6H PRN Shortness Of Breath Alprazolam 0.25 mg 11/28/18 15:10 Xanax PO TID PRN Anxiety Aspirin 81 mg 11/29/18 09:00 11/30/18 08:21 Aspirin PO 81 mg DAILY [facility] Administration Clopidogrel Bisulfate 75 mg 11/29/18 09:00 11/30/18 08:20 Plavix PO 75 mg QAM [facility] Administration Duloxetine HCl 60 mg 11/28/18 21:00 11/30/18 08:24 Cymbalta PO 60 mg BID [facility] Administration Hydromorphone HCl 0.5 mg 11/28/18 16:48 11/30/18 10:04 Dilaudid IVP 0.5 mg Q6HR PRN Administration Pain Hydroxyzine Pamoate 50 mg 11/28/18 15:08 Vistaril PO HS PRN Itching Sodium Chloride 1,000 mls @ 20 mls/hr 11/28/18 16:00 11/30/18 10:04 Saline 0.9% IV 20 mls/hr .Q24H [facility] Administration Norepinephrine Bitartrate 32 250 mls @ 2.564 mls/hr 11/29/18 20:00 11/30/18 01:35 mg/ Sodium Chloride IV 0 mcg/kg/min .Q24H [facility] 0 mls/hr Titration Protocol 0.05 MCG/KG/MIN Insulin Aspart 0 unit 11/29/18 07:30 11/30/18 12:08 Novolog SQ Not Given ACHS [facility] Protocol Insulin Aspart 10 unit 11/30/18 07:30 11/30/18 12:09 Novolog SQ Not Given AC-TID [facility] Insulin Detemir 35 unit 11/29/18 21:00 11/29/18 21:34 Levemir SQ 35 unit HS [facility] Administration Lorazepam 0.5 mg 11/28/18 16:48 Ativan IV Q6HR PRN Anxiety Naloxone HCl 0.2 mg 11/28/18 13:23 Narcan IV Q2M PRN Opioid Reversal Nitroglycerin 0.4 mg 11/28/18 15:08 Nitrostat SUBLINGUAL Q5M PRN Chest Pain Patient's Own ( 1 each 11/29/18 21:00 11/29/18 21:50 Rosuvastatin 40 Mg) PO 1 each HS [facility] Administration Pantoprazole Sodium 40 mg 11/29/18 07:30 11/30/18 08:21 Protonix PO 40 mg AC-BRKFST JA[facility] Administration Primidone 100 mg 11/28/18 21:00 11/30/18 08:21 Mysoline PO 100 mg BID JA[facility] Administration Ranolazine 500 mg 11/28/18 21:00 11/30/18 08:21 Ranexa PO 500 mg BID [facility] Administration Temazepam 15 mg 11/28/18 15:10 Restoril PO HS PRN Insomnia Objective - Vital Signs Vital signs: Vital Signs Temp 97.1 F L 11/30/18 12:00 Pulse 86 11/30/18 13:00 Resp 20 11/30/18 13:00 BP 87/59 11/30/18 13:00 Pulse Ox 97 11/30/18 13:00 Intake & Output 11/29/18 11/30/18 11/30/18 18:59 06:59 18:59 Intake Total 2233.710 608.368 950 Output Total 875 650 300 Balance 1358.710 -41.632 650 Weight 109.4 kg 112.2 kg Intake: IV 800 600 230 Sodium Chloride 0.9% 1, 800 600 230 000 ml @ 20 mls/hr IV . Q24H [facility] Rx#:[id number] Intake, IV Titration 113.710 8.368 Amount Heparin Sod,Pork in 0.45% 99.769 NaCl 25,000 unit In 0.45 % NaCl 1 250ml.bag @ 9.25 UNITS/KG/HR 9.986 mls/hr IV .Q24H [facility] Rx#: [id number] Norepinephrine 32 mg In 13.941 0 Sodium Chloride 0.9% 218 ml @ 0.05 MCG/KG/MIN 2.53 mls/hr IV .Q24H [facility] Rx#: [id number] Norepinephrine 32 mg In 8.368 Sodium Chloride 0.9% 218 ml @ 0.05 MCG/KG/MIN 2. 564 mls/hr IV .Q24H [facility] Rx#:[id number] Oral 1320 720 Output: Urine 875 650 300 Other: Voiding Method Urinal Urinal Toilet # Voids 1 1 - Exam PHYSICAL EXAMINATION: Patient is lying in the bed comfortably, no acute distress, awake alert and oriented.. HEENT: Normocephalic. Neck is supple. Pupils reactive. Nostrils clear. Oral cavity is moist. Ears reveal no drainage. Neck reveals no JVD, carotid bruits, or thyromegaly. CHEST EXAMINATION: Trachea is central. Symmetrical expansion. Lung hendrix clear to auscultation and percussion. CARDIAC: Normal S1, S2 with no gallops. No murmurs ABDOMEN: Soft. Bowel sounds normal. No organomegaly. No abdominal bruits. Extremities: Bilateral trace edema. No clubbing or cyanosis Neurologically awake, alert, oriented x3 with well-coordinated movements. No focal deficits noted Skin: No rash or skin lesions. Psychiatric: Coperative. Nonsuicidal Musculoskeletal: No joint swelling or deformity. Normal range of motion. - Labs CBC & Chem 7: 11/30/18 04:19 11/30/18 04:19 Labs: Abnormal Lab Results - Last 24 Hours (Table) 11/29/18 11/29/18 11/29/18 Range/Units 16:51 17:07 21:24 RBC (4.30-5.90) m/uL Hgb (13.0-17.5) gm/dL Hct (39.0-53.0) % MCHC (31.0-37.0) g/dL RDW (11.5-15.5) % Sodium (137-145) mmol/L Carbon Dioxide (22-30) mmol/L BUN (9-20) mg/dL Glucose (74-99) mg/dL POC Glucose (mg/dL) 51 L 71 L 136 H (75-99) mg/dL 11/30/18 11/30/18 11/30/18 Range/Units 04:19 04:19 06:54 RBC 4.01 L (4.30-5.90) m/uL Hgb 10.1 L (13.0-17.5) gm/dL Hct 34.7 L (39.0-53.0) % MCHC 29.0 L (31.0-37.0) g/dL RDW 15.9 H (11.5-15.5) % Sodium 133 L (137-145) mmol/L Carbon Dioxide 20 L (22-30) mmol/L BUN 27 H (9-20) mg/dL Glucose 162 H (74-99) mg/dL POC Glucose (mg/dL) 171 H (75-99) mg/dL Assessment and Plan Assessment: Acute syncopal episode likely due to hypotension. No arrhythmias noted in the AICD interrogation chronic CHF with systolic dysfunction. Ejection fraction less than 20% Acute on chronic kidney disease stage III. Creatinine 1.72. Baseline creatinine 1.09 Hyperglycemia with uncontrolled diabetes type 2. A1c 13.6 in July 2018 Multi-Vessel coronary artery disease with recent stent placement at outside hospital facility.. Maximal medical therapy was recommended. ischemic cardiomyopathy Diabetic peripheral neuropathy of bilateral hand and feet Hypertensive heart disease obstructive sleep apnea not on CPAP at home Chronic gastritis Degenerative disc disease Chronic back pain Depression with history of suicide attempts Admitting gastroparesis Psoriasis History of migraine headaches History of TIA Hiatal hernia Right rotator cuff tear history History of CVA in 2018 with TPA administration Coronary artery disease with history of stent placement History of biventricular pacer, AICD placement Anxiety/depression and PTSD History of multiple suicide attempts History of alcohol abuse History of marijuana use DVT prophylaxis Plan: Currently patient is off Levophed drip. Continue to hold blood pressure medications. Continue with aspirin and Plavix. Telemetry monitoring. Continue with insulin dosing and monitor blood sugars closely. Cardiology and pulmonary is on board. Prognosis is guarded with multiple medical problems and comorbid conditions. Discussed with the patient and his at bedside in detail. Time with Patient: Greater than 30
[2018-11-30 16:52] LABS: Glucose,Whole Blood 136 mg/dL (75-99)
[2018-11-30] MEDS: NOREPINEPHRINE 32 MG in SODIUM CHLORIDE 0.9% 218 ML IV SCH (19:44)
[2018-11-30] MEDS: ROSUVASTATIN 40 MG PO SCH (19:59)
[2018-11-30 20:24] LABS: Glucose,Whole Blood 113 mg/dL (75-99)
[2018-11-30] MEDS: INSULIN DETEMIR (LEVEMIR) 100 UNIT/ML SYR SQ SCH (20:44)
[2018-12-01] MEDS: HYDROmorphone 0.5 MG/0.5 ML SYRINGE IVP PRN ×4 (02:47→20:07)
[2018-12-01] MEDS: SODIUM CHLORIDE 0.9% 1,000 ML IV SCH ×3 (05:00→14:03)
[2018-12-01 05:13] LABS: Anisocytosis Slight; Basophils % (A) 1 %; Eosinophils # (A) 0.2 k/uL (0-0.7); Eosinophils % (A) 3 %; HCT 33.2 % (39.0-53.0); HGB 10.2 gm/dL (13.0-17.5); Hypochromasia Moderate; Lymphocytes # (A) 0.8 k/uL (1.0-4.8); Lymphocytes % (A) 14 %; MCH 25.8 pg (25.0-35.0); MCHC 30.9 g/dL (31.0-37.0); MCV 83.6 fL (80.0-100.0); Mean Platelet Volume 7.9; Monocytes # (A) 0.3 k/uL (0-1.0); Monocytes % (A) 5 %; Neutrophils # (A) 4.5 k/uL (1.3-7.7); Neutrophils % (A) 76 %; Platelet Count 284 k/uL (150-450); Poikilocytosis Slight; RBC 3.97 m/uL (4.30-5.90); RDW 16.4 % (11.5-15.5)
[2018-12-01 05:25] LABS: African American GFR (CKD) >90 (>60 ml/min/1.73 sqM); Anion Gap 7 mmol/L; Blood Urea Nitrogen 23 mg/dL (9-20); Calcium 8.7 mg/dL (8.4-10.2); Carbon Dioxide 23 mmol/L (22-30); Chloride 104 mmol/L (98-107); Glucose 57 mg/dL (74-99); Potassium 4.6 mmol/L (3.5-5.1); Sodium 134 mmol/L (137-145)
[2018-12-01] MEDS: PANTOPRAZOLE 40 MG TABLET PO SCH (06:38)
[2018-12-01] MEDS: INSULIN ASPART (NovoLOG) 100 UNIT/ML VIAL SQ SCH ×7 (06:55→20:13)
[2018-12-01 06:56] LABS: Glucose,Whole Blood 62 mg/dL (75-99)
[2018-12-01 07:12] LABS: Glucose,Whole Blood 71 mg/dL (75-99)
--- NOTE | 2018-12-01 07:26 | XR ---
EXAMINATION TYPE: XR chest 1V portable DATE OF EXAM: 12/01/2018 COMPARISON: 11/30/2018 HISTORY: Shortness of breath TECHNIQUE: Single frontal view of the chest is obtained. FINDINGS: Dual lead left-sided cardiac device is seen. Increasing pleural effusion on the right now moderate with associated right basilar airspace disease. Linear probable left basal atelectasis. No d istinct pulmonary vascular congestion. Cardiomediastinal silhouette is enlarged with cardiac stent no kedar. No acute osseous abnormality. IMPRESSION: Increasing right pleural effusion and right basilar airspace disease that may represent atelectasis or pneumonia. No current pulmonary vascular congestion.
[2018-12-01] MEDS: DULoxetine HCL 60 MG CAPSULE.DR PO SCH ×2 (08:02→20:06)
[2018-12-01] MEDS: ASPIRIN 81 MG PO SCH (08:02)
[2018-12-01] MEDS: PRIMIDONE 50 MG TAB PO SCH ×2 (08:02→20:06)
[2018-12-01] MEDS: CLOPIDOGREL 75 MG TAB PO SCH (08:02)
[2018-12-01] MEDS: RANOLAZINE 500 MG TAB.ER.12H PO SCH ×2 (08:03→20:06)
[2018-12-01] MEDS ORDERED: FUROSEMIDE 10 MG/ML 2 ML VIAL IV ONE (09:27)
[2018-12-01] MEDS: ALPRAZolam 0.25 MG TAB PO PRN ×2 (10:38→23:11)
[2018-12-01 11:22] LABS: Glucose,Whole Blood 128 mg/dL (75-99)
--- NOTE | 2018-12-01 11:29 | P.PN ---
Subjective Progress Note Date: 12/01/18 Principal diagnosis: Hypotension with acute collapse and loss of consciousness, cardiac in nature unless otherwise. This is a 42-year-old male with an extensive cardiac history. Patient comes in today because he had a syncopal episode at a restaurant. Patient states he felt lightheaded and next thing he knows everybody extending over. Patient complains of chest pain anteriorly and laterally. Patient states he thinks she might of her discomfort when he fell. Patient's not sure if he hit his head or not. Patient states he is short of breath. Patient denies any diaphoretic episodes. Patient denies any nausea at this time. Patient denies any abdominal pain. Patient denies any extremity pain. Patient denies any palpitations. Patient does state that he feels extremely lightheaded. Patient was seen by Dr. Valerio when he was admitted to the ICU yesterday, and he felt that the patient had hypotension, mental status change and collapse secondary to hypotension which is felt to be cardiac in nature unless proven otherwise. Patient is known to have history of coronary artery disease, multiple coronary interventions and stenting, severe ischemic cardiomyopathy, previous AICD placement, obstructive sleep apnea syndrome, and today the patient is barely on any norepinephrine, comfortable, in no distress. His norepinephrine is being titrated, added to likely be discontinued in the next couple of hours. Patient was reevaluated today on 11/30/2018, we are seeing him again for one episode of loss of consciousness associated with low blood pressure. His ICD was interrogated, and there was no evidence of ventricular tachycardia or ventricular fibrillation. Patient is known to have severe coronary artery disease and stenting, he has ischemic cardiomyopathy and previous biventricular ICD implant. Today the patient is doing fairly well, not requiring any pressors or any inotropes, patient is hemodynamically stable, urine output is excellent, last night his blood pressure was marginal. Was on norepinephrine for a couple of hours, and has been off norepinephrine since 1 AM. Labs are unremarkable renal functioning is improving, creatinine is down to 1.14. It was 1.76 on admission. Chest x-ray continues to show evidence of mild pulmonary edema. However the patient is clinically asymptomatic, no cough no wheezing no shortness of breath no chest pain. Reevaluated today on 12/01/2018, patient is doing better, breathing easier, hemodynamically stable, not requiring any pressors or any inotropes. However his chest x-ray is showing increasing right-sided pleural effusion and right basilar atelectasis, hence I recommended starting the patient back again on diuretics. He will be given a dose of Lasix today. Clinically the patient is asymptomatic. And it is felt that the pleural effusion is cardiac in nature unless proven otherwise. No need for thoracentesis, patient actually needs more diuretics. Objective - Vital Signs Vital signs: Vital Signs Temp 98 F 12/01/18 10:15 Pulse 90 12/01/18 10:27 Resp 17 12/01/18 09:00 BP 116/77 12/01/18 10:27 Pulse Ox 96 12/01/18 10:22 Intake & Output 11/30/18 12/01/18 12/01/18 18:59 06:59 18:59 Intake Total 1770 260 20 Output Total 850 1750 250 Balance 920 -1490 -230 Weight 112.1 kg Intake: IV 330 260 20 Sodium Chloride 0.9% 1, 330 260 20 000 ml @ 20 mls/hr IV . Q24H [facility] Rx#:[id number] Oral 1440 Output: Urine 850 1750 250 Other: Voiding Method Toilet Toilet # Voids 1 1 - Exam Physical Exam: Revealed a 42-year-old white male in no distress Head: Atraumatic, normocephalic. HEENT:[Neck is supple.] [No neck masses.] [No thyromegaly.] [No JVD.] Chest: Minimal fine crackles at the bases no rhonchi no wheezes. Cardiac Exam: [Normal S1 and S2, no S3 gallop, no murmur.] Abdomen: [Soft, nontender, no megaly, no rebound, no guarding, normal bowel sounds.] Extremities: [No clubbing,1+ bipedala, no cyanosis.] Neurological Exam: [No focal neurologic deficit.]Alert oriented 3. Psychiatric: Normal mood affect and mental status examination. Skin: No rashes. Lymphatics: No lymphadenopathy. - Labs CBC & Chem 7: 12/01/18 04:50 12/01/18 04:50 Labs: Abnormal Lab Results - Last 24 Hours (Table) 11/30/18 11/30/18 12/01/18 Range/Units 16:50 20:23 04:50 RBC 3.97 L (4.30-5.90) m/uL Hgb 10.2 L (13.0-17.5) gm/dL Hct 33.2 L (39.0-53.0) % MCHC 30.9 L (31.0-37.0) g/dL RDW 16.4 H (11.5-15.5) % Lymphocytes # 0.8 L (1.0-4.8) k/uL Sodium (137-145) mmol/L BUN (9-20) mg/dL Glucose (74-99) mg/dL POC Glucose (mg/dL) 136 H 113 H (75-99) mg/dL 12/01/18 12/01/18 12/01/18 Range/Units 04:50 06:54 07:11 RBC (4.30-5.90) m/uL Hgb (13.0-17.5) gm/dL Hct (39.0-53.0) % MCHC (31.0-37.0) g/dL RDW (11.5-15.5) % Lymphocytes # (1.0-4.8) k/uL Sodium 134 L (137-145) mmol/L BUN 23 H (9-20) mg/dL Glucose 57 L (74-99) mg/dL POC Glucose (mg/dL) 62 L 71 L (75-99) mg/dL 12/01/18 Range/Units 11:21 RBC (4.30-5.90) m/uL Hgb (13.0-17.5) gm/dL Hct (39.0-53.0) % MCHC (31.0-37.0) g/dL RDW (11.5-15.5) % Lymphocytes # (1.0-4.8) k/uL Sodium (137-145) mmol/L BUN (9-20) mg/dL Glucose (74-99) mg/dL POC Glucose (mg/dL) 128 H (75-99) mg/dL Assessment and Plan Assessment: Impression: 1 hypotension and acute collapse with loss of consciousness, syncope, most likely cardiac in nature, resolved but 2 history of multivessel coronary artery disease and multiple interventions 3 ischemic cardiomyopathy and LV dysfunction ejection fraction of 20% 4 moderate degree of pulmonary hypertension 5 history of pulmonary embolism 6 history of cardiac arrest 7 obstructive sleep apnea syndrome needs to have outpatient workup 8 diabetes 9 hypertension 10 hyperlipidemia 11 history of deep vein thromboses and pulmonary embolism 12 right-sided pleural effusion secondary to congestive heart failure, will need more diuretics. Recommendation: Continue present treatment plan, consider transferring the patient out of the ICU to a monitor bed on selective, continue diuretics, one dose of Lasix was ordered, considering his LV dysfunction, the patient will need to be maintained on a small dose of Lasix for a long time. Prognosis again remains extremely poor and guarded considering his overall cardiomyopathy and LV dysfunction in spite of his young age Time with Patient: Less than 30
--- NOTE | 2018-12-01 13:57 | P.PN ---
Subjective Patient is resting comfortably in bed. His blood pressure is still low normal. He is off pressors at this time No chest discomfort he is resting comfortably in bed Blood pressure 119/81 mmHg respirations 14-16 pulse rate 89 beats a minute afebrile Breath sounds are clear no rhonchi no crackles Heart sounds S1 and S2 are normal no murmurs or gallop. Abdomen soft benign except is warm no edema No JVD Impression Patient presyncope. Low blood pressure noted He is off pressors completely He does a history of ischemic adenopathy status post bilateral total ICD implantation No ventricular fibrillation ventricular tachycardia noted. No ICD shocks noted Suggest Orthostatics today if normal he should be sent upstairs to the third floor or on the medical floor and home medication should be resumed tomorrow as long as blood pressure remained stable Objective - Vital Signs Vital signs: Vital Signs Temp 98 F 12/01/18 10:15 Pulse 90 12/01/18 10:27 Resp 17 12/01/18 09:00 BP 116/77 12/01/18 10:27 Pulse Ox 96 12/01/18 10:22 Intake & Output 11/30/18 12/01/18 12/01/18 18:59 06:59 18:59 Intake Total 1770 260 20 Output Total 850 1750 250 Balance 920 -1490 -230 Weight 112.1 kg Intake: IV 330 260 20 Sodium Chloride 0.9% 1, 330 260 20 000 ml @ 20 mls/hr IV . Q24H [facility] Rx#:[id number] Oral 1440 Output: Urine 850 1750 250 Other: Voiding Method Toilet Toilet # Voids 1 1 - Labs CBC & Chem 7: 12/01/18 04:50 12/01/18 04:50 Labs: Abnormal Lab Results - Last 24 Hours (Table) 11/30/18 11/30/18 12/01/18 Range/Units 16:50 20:23 04:50 RBC 3.97 L (4.30-5.90) m/uL Hgb 10.2 L (13.0-17.5) gm/dL Hct 33.2 L (39.0-53.0) % MCHC 30.9 L (31.0-37.0) g/dL RDW 16.4 H (11.5-15.5) % Lymphocytes # 0.8 L (1.0-4.8) k/uL Sodium (137-145) mmol/L BUN (9-20) mg/dL Glucose (74-99) mg/dL POC Glucose (mg/dL) 136 H 113 H (75-99) mg/dL 12/01/18 12/01/18 12/01/18 Range/Units 04:50 06:54 07:11 RBC (4.30-5.90) m/uL Hgb (13.0-17.5) gm/dL Hct (39.0-53.0) % MCHC (31.0-37.0) g/dL RDW (11.5-15.5) % Lymphocytes # (1.0-4.8) k/uL Sodium 134 L (137-145) mmol/L BUN 23 H (9-20) mg/dL Glucose 57 L (74-99) mg/dL POC Glucose (mg/dL) 62 L 71 L (75-99) mg/dL 12/01/18 Range/Units 11:21 RBC (4.30-5.90) m/uL Hgb (13.0-17.5) gm/dL Hct (39.0-53.0) % MCHC (31.0-37.0) g/dL RDW (11.5-15.5) % Lymphocytes # (1.0-4.8) k/uL Sodium (137-145) mmol/L BUN (9-20) mg/dL Glucose (74-99) mg/dL POC Glucose (mg/dL) 128 H (75-99) mg/dL
--- NOTE | 2018-12-01 15:23 | CDI ---
Documentation Clarification Form Date: 12/01/2018 2:59:55 PM From: Sue Jain RN CCDS Admit Date: 11/28/2018 1:23:00 PM Patient Name: Ti Dunham Visit Number: [id number] Discharge Date: ATTENTION: The Clinical Documentation Specialists (CDI) and [facility] Coding Staff appreciate your assistance in clarifying documentation. Please respond to the clarification below the line at the bottom and electronically sign. The CDI & [facility] Coding staff will review the response and follow-up if needed. Please note: Queries are made part of the Legal Health Record. If you have any questions, please contact the author of this message via ITS. Dr. Ricardo Samson MD The diagnosis syncope with possibly acute ST segment with carcinogenic shock was documented in the H & P, but is not consistently noted in subsequent documentation. History/Risk Factors: 42 year old male presents to the ED for a syncopal event at a restaurant. Medical History Ischemic Cardiomyopathy, MS, CHF HTN, DM CAD , Clinical Indicators: Admission vss 63/31 58 97.8 16 100% 6L nasal cannula Labs Troponin 0.221, 0.166, 0.169, CXR ED tube remval persistent findings of CHF are noted with small bilateral effusions. Underylying pneumolnia not excluded Treatment: ICU admission Cefempime ivpb , Vancomycin ivpb lasix; 1L 0.9ns bolus , Aranesp, Norepinephrine iv, Consult Cardiology , Supervisor Color Making Please clarify if the above diagnosis of St Segment myocardial infarction with cardiogenic shock was: * Present/active this admission * Treated and resolved this admission * Ruled out * Other, please specify * Clinically unable to determine (Last Revision: February 2018-New) when i saw the pt he was not in shock. there is differential diagnosis per pulmonary note. MTDD
[2018-12-01 16:26] LABS: Glucose,Whole Blood 89 mg/dL (75-99)
[2018-12-01] MEDS: NOREPINEPHRINE 32 MG in SODIUM CHLORIDE 0.9% 218 ML IV SCH (17:29)
[2018-12-01] MEDS: ROSUVASTATIN 40 MG PO SCH (20:06)
[2018-12-01] MEDS: INSULIN DETEMIR (LEVEMIR) 100 UNIT/ML SYR SQ SCH (20:13)
[2018-12-01 20:15] LABS: Glucose,Whole Blood 125 mg/dL (75-99)
--- NOTE | 2018-12-01 22:21 | P.PN ---
Subjective Progress Note Date: 12/01/18 Principal diagnosis: Syncope Patient is a 48-year-old male with a known history of asthma,Coronary Artery Disease (CAD) with history of stent placement less than a year ago, cardi omyopathy ejection fraction 30-35% Chest Pain / Angina, Heart Failure, CVA/TIA, Diabetes Mellitus insulin-dependent, Deep Vein Thrombosis (DVT), GERD/Reflux, Hyperlipidemia, Hypertension, Myocardial Infarction ([place]), Osteoarthritis (OA), Pneumonia, Skin Disorder, Sleep Apnea/CPAP/BIPAP and other multiple medical problems came to ER with complaints of Syncopal episode. Patient was hypotensive and requiring pressor support. Currently patient is off the Levaquin drip. Patient was found to have slightly elevated troponin level on admission. 11/30/2018 Patient is currently sitting in a chair comfortably. Alert awake and oriented 3. Patient is still hypotensive. Otherwise patient is currently not requiring pressor support. No complains of chest pain or shortness of breath. Leg swelling improves. AICD was implanted to showed no evidence of arrhythmia. Patient was on pressors support briefly last night. Blood sugar is controlled. Creatinine level improved to 1.14 compared to 1.76 on admission. Chest x-ray showed similar-appearing cecal of congestive heart failure in comparison to 11/29/2018 No fever no chills. No nausea vomiting abdominal pain or diarrhea. No dysuria or hematuria. All other review of systems negative except the above 12/01/2018 8 patient is currently sitting in the chair comfortably. Denied any complaints of chest pain or shortness of breath. blood pressure is stable without pressor support. No complaints of worsening shortness of breath. Patient was started back on diuretics as blood pressure tolerates. No complaints of Nausea vomiting or abdominal pain. Chest x-ray showed increasing right pleural effusion and right basilar airspace disease that may present atelectasis of pneumonia Blood pressure medications are still on hold. Cardiology and pulmonary on board.. Current medications reviewed. Objective - Vital Signs Vital signs: Vital Signs Temp 97.9 F 12/01/18 20:00 Pulse 89 12/01/18 20:00 Resp 13 12/01/18 20:00 BP 112/74 12/01/18 20:00 Pulse Ox 95 12/01/18 20:00 Intake & Output 12/01/18 12/01/18 12/02/18 06:59 18:59 06:59 Intake Total 260 560 80 Output Total 1750 1999 300 Balance -1490 -1440 -220 Weight 112.1 kg Intake: IV 260 60 80 Sodium Chloride 0.9% 1, 260 60 80 000 ml @ 20 mls/hr IV . Q24H [facility] Rx#:[id number] Oral 500 Output: Urine 1750 1999 300 Other: Voiding Method Toilet Toilet # Voids 1 - Exam PHYSICAL EXAMINATION: Patient is lying in the bed comfortably, no acute distress, awake alert and oriented.. HEENT: Normocephalic. Neck is supple. Pupils reactive. Nostrils clear. Oral cavity is moist. Ears reveal no drainage. Neck reveals no JVD, carotid bruits, or thyromegaly. CHEST EXAMINATION: Trachea is central. Symmetrical expansion. Lung hendrix clear to auscultation and percussion. CARDIAC: Normal S1, S2 with no gallops. No murmurs ABDOMEN: Soft. Bowel sounds normal. No organomegaly. No abdominal bruits. Extremities: Bilateral trace edema. No clubbing or cyanosis Neurologically awake, alert, oriented x3 with well-coordinated movements. No focal deficits noted Skin: No rash or skin lesions. Psychiatric: Coperative. Nonsuicidal Musculoskeletal: No joint swelling or deformity. Normal range of motion. - Labs CBC & Chem 7: 12/01/18 04:50 12/01/18 04:50 Labs: Abnormal Lab Results - Last 24 Hours (Table) 12/01/18 12/01/18 12/01/18 Range/Units 04:50 04:50 06:54 RBC 3.97 L (4.30-5.90) m/uL Hgb 10.2 L (13.0-17.5) gm/dL Hct 33.2 L (39.0-53.0) % MCHC 30.9 L (31.0-37.0) g/dL RDW 16.4 H (11.5-15.5) % Lymphocytes # 0.8 L (1.0-4.8) k/uL Sodium 134 L (137-145) mmol/L BUN 23 H (9-20) mg/dL Glucose 57 L (74-99) mg/dL POC Glucose (mg/dL) 62 L (75-99) mg/dL 12/01/18 12/01/18 12/01/18 Range/Units 07:11 11:21 20:12 RBC (4.30-5.90) m/uL Hgb (13.0-17.5) gm/dL Hct (39.0-53.0) % MCHC (31.0-37.0) g/dL RDW (11.5-15.5) % Lymphocytes # (1.0-4.8) k/uL Sodium (137-145) mmol/L BUN (9-20) mg/dL Glucose (74-99) mg/dL POC Glucose (mg/dL) 71 L 128 H 125 H (75-99) mg/dL Assessment and Plan Assessment: Acute syncopal episode likely due to hypotension. No arrhythmias noted in the AICD interrogation chronic CHF with systolic dysfunction. Ejection fraction less than 20% Acute on chronic kidney disease stage III. Creatinine 1.72--1.03. Baseline creatinine 1.09 Hyperglycemia with uncontrolled diabetes type 2. A1c 13.6 in July 2018 Multi-Vessel coronary artery disease with recent stent placement at outside hospital facility.. Maximal medical therapy was recommended. ischemic cardiomyopathy Diabetic peripheral neuropathy of bilateral hand and feet Hypertensive heart disease obstructive sleep apnea not on CPAP at home Chronic gastritis Degenerative disc disease Chronic back pain Depression with history of suicide attempts Admitting gastroparesis Psoriasis History of migraine headaches History of TIA Hiatal hernia Right rotator cuff tear history History of CVA in 2018 with TPA administration Coronary artery disease with history of stent placement History of biventricular pacer, AICD placement Anxiety/depression and PTSD History of multiple suicide attempts History of alcohol abuse History of marijuana use DVT prophylaxis Plan: Currently patient is off Levophed drip. Continue to hold blood pressure medications. Continue with aspirin and Plavix. Telemetry monitoring. Continue with insulin dosing and monitor blood sugars closely. Cardiology and pulmonary is on board. Prognosis is guarded with multiple medical problems and comorbid conditions. Discussed with the patient and his at bedside in detail. Time with Patient: Greater than 30
[2018-12-02] MEDS: HYDROmorphone 0.5 MG/0.5 ML SYRINGE IVP PRN ×4 (02:01→20:15)
[2018-12-02] MEDS: PANTOPRAZOLE 40 MG TABLET PO SCH (06:13)
[2018-12-02 06:20] LABS: Glucose,Whole Blood 86 mg/dL (75-99)
[2018-12-02] MEDS: INSULIN ASPART (NovoLOG) 100 UNIT/ML VIAL SQ SCH ×7 (06:23→21:07)
[2018-12-02 06:38] LABS: Anisocytosis Slight; Basophils % (A) 1 %; Eosinophils # (A) 0.2 k/uL (0-0.7); Eosinophils % (A) 4 %; HCT 31.9 % (39.0-53.0); HGB 9.9 gm/dL (13.0-17.5); Hypochromasia Moderate; Lymphocytes % (A) 23 %; MCH 25.6 pg (25.0-35.0); MCHC 30.8 g/dL (31.0-37.0); MCV 83.1 fL (80.0-100.0); Mean Platelet Volume 7.6; Monocytes # (A) 0.3 k/uL (0-1.0); Monocytes % (A) 6 %; Neutrophils # (A) 2.9 k/uL (1.3-7.7); Neutrophils % (A) 65 %; Platelet Count 278 k/uL (150-450); Poikilocytosis Slight; RBC 3.84 m/uL (4.30-5.90); RDW 16.5 % (11.5-15.5); WBC 4.5 k/uL (3.8-10.6)
[2018-12-02 06:54] LABS: African American GFR (CKD) >90 (>60 ml/min/1.73 sqM); Anion Gap 6 mmol/L; Blood Urea Nitrogen 18 mg/dL (9-20); Calcium 8.6 mg/dL (8.4-10.2); Carbon Dioxide 25 mmol/L (22-30); Chloride 103 mmol/L (98-107); Glucose 84 mg/dL (74-99); Potassium 4.5 mmol/L (3.5-5.1); Sodium 134 mmol/L (137-145)
[2018-12-02] MEDS: RANOLAZINE 500 MG TAB.ER.12H PO SCH ×2 (08:05→20:16)
[2018-12-02] MEDS: ASPIRIN 81 MG PO SCH (08:06)
[2018-12-02] MEDS: DULoxetine HCL 60 MG CAPSULE.DR PO SCH ×2 (08:06→20:16)
[2018-12-02] MEDS: PRIMIDONE 50 MG TAB PO SCH ×2 (08:06→20:16)
[2018-12-02] MEDS: CLOPIDOGREL 75 MG TAB PO SCH (08:06)
--- NOTE | 2018-12-02 11:46 | P.PN ---
Subjective Progress Note Date: 12/02/18 Principal diagnosis: Hypotension with acute collapse and loss of consciousness, cardiac in nature unless otherwise. This is a 42-year-old male with an extensive cardiac history. Patient comes in today because he had a syncopal episode at a restaurant. Patient states he felt lightheaded and next thing he knows everybody extending over. Patient complains of chest pain anteriorly and laterally. Patient states he thinks she might of her discomfort when he fell. Patient's not sure if he hit his head or not. Patient states he is short of breath. Patient denies any diaphoretic episodes. Patient denies any nausea at this time. Patient denies any abdominal pain. Patient denies any extremity pain. Patient denies any palpitations. Patient does state that he feels extremely lightheaded. Patient was seen by Dr. Valerio when he was admitted to the ICU yesterday, and he felt that the patient had hypotension, mental status change and collapse secondary to hypotension which is felt to be cardiac in nature unless proven otherwise. Patient is known to have history of coronary artery disease, multiple coronary interventions and stenting, severe ischemic cardiomyopathy, previous AICD placement, obstructive sleep apnea syndrome, and today the patient is barely on any norepinephrine, comfortable, in no distress. His norepinephrine is being titrated, added to likely be discontinued in the next couple of hours. Patient was reevaluated today on 11/30/2018, we are seeing him again for one episode of loss of consciousness associated with low blood pressure. His ICD was interrogated, and there was no evidence of ventricular tachycardia or ventricular fibrillation. Patient is known to have severe coronary artery disease and stenting, he has ischemic cardiomyopathy and previous biventricular ICD implant. Today the patient is doing fairly well, not requiring any pressors or any inotropes, patient is hemodynamically stable, urine output is excellent, last night his blood pressure was marginal. Was on norepinephrine for a couple of hours, and has been off norepinephrine since 1 AM. Labs are unremarkable renal functioning is improving, creatinine is down to 1.14. It was 1.76 on admission. Chest x-ray continues to show evidence of mild pulmonary edema. However the patient is clinically asymptomatic, no cough no wheezing no shortness of breath no chest pain. Reevaluated today on 12/01/2018, patient is doing better, breathing easier, hemodynamically stable, not requiring any pressors or any inotropes. However his chest x-ray is showing increasing right-sided pleural effusion and right basilar atelectasis, hence I recommended starting the patient back again on diuretics. He will be given a dose of Lasix today. Clinically the patient is asymptomatic. And it is felt that the pleural effusion is cardiac in nature unless proven otherwise. No need for thoracentesis, patient actually needs more diuretics. Reevaluated today on 12/02/2018, patient continues to well, hemodynamically stable, no further episodes of hypotension or loss of consciousness. Continues to have a small right-sided pleural effusion, urine output is good, he remains on Lasix. Would suggest maintenance dose of Lasix. Since his blood pressure is stable and his renal functioning is also stable. Objective - Vital Signs Vital signs: Vital Signs Temp 98.2 F 12/02/18 08:00 Pulse 94 12/02/18 10:00 Resp 14 12/02/18 10:00 BP 105/73 12/02/18 10:00 Pulse Ox 96 12/02/18 08:00 Intake & Output 12/01/18 12/02/18 12/02/18 18:59 06:59 18:59 Intake Total 560 300 Output Total 2000 900 Balance -1440 -600 Weight 109.3 kg Intake: IV 60 300 Sodium Chloride 0.9% 1, 60 300 000 ml @ 20 mls/hr IV . Q24H [facility] Rx#:[id number] Oral 500 Output: Urine 2000 900 Other: Voiding Method Toilet # Voids 1 1 - Exam Physical Exam: Revealed a 42-year-old white male in no distress very pleasant, on room air. Head: Atraumatic, normocephalic. HEENT:[Neck is supple.] [No neck masses.] [No thyromegaly.] [No JVD.] Chest: Minimal fine crackles at the bases no rhonchi no wheezes. Cardiac Exam: [Normal S1 and S2, no S3 gallop, no murmur.] Abdomen: [Soft, nontender, no megaly, no rebound, no guarding, normal bowel sounds.] Extremities: [No clubbing,1+ bipedala, no cyanosis.] Neurological Exam: [No focal neurologic deficit.]Alert oriented 3. Psychiatric: Normal mood affect and mental status examination. Skin: No rashes. Lymphatics: No lymphadenopathy. - Labs CBC & Chem 7: 12/02/18 05:55 12/02/18 05:55 Labs: Abnormal Lab Results - Last 24 Hours (Table) 12/01/18 12/02/18 12/02/18 Range/Units 20:12 05:55 05:55 RBC 3.84 L (4.30-5.90) m/uL Hgb 9.9 L (13.0-17.5) gm/dL Hct 31.9 L (39.0-53.0) % MCHC 30.8 L (31.0-37.0) g/dL RDW 16.5 H (11.5-15.5) % Sodium 134 L (137-145) mmol/L POC Glucose (mg/dL) 125 H (75-99) mg/dL Assessment and Plan Assessment: Impression: 1 hypotension and acute collapse with loss of consciousness, syncope, most likely cardiac in nature, resolved but 2 history of multivessel coronary artery disease and multiple interventions 3 ischemic cardiomyopathy and LV dysfunction ejection fraction of 20% 4 moderate degree of pulmonary hypertension 5 history of pulmonary embolism 6 history of cardiac arrest 7 obstructive sleep apnea syndrome needs to have outpatient workup 8 diabetes 9 hypertension 10 hyperlipidemia 11 history of deep vein thromboses and pulmonary embolism 12 right-sided pleural effusion secondary to congestive heart failure, will need more diuretics. Recommendation: continue diuretics considering his LV dysfunction, the patient will need to be maintained on a small dose of Lasix for a long time. Prognosis again remains extremely poor and guarded considering his overall cardiomyopathy and LV dysfunction in spite of his young age. We'll recommend transferring the patient out of the ICU he is already an overflow patient, I will write for Lasix maintenance dose of 20 mg twice a day. We will likely help resolve his right- sided pleural effusion. Need to monitor electrolytes and renal profile closely. Time with Patient: Less than 30
[2018-12-02 12:07] LABS: Glucose,Whole Blood 101 mg/dL (75-99)
[2018-12-02] MEDS: SODIUM CHLORIDE 0.9% 1,000 ML IV SCH ×3 (12:30→21:08)
--- NOTE | 2018-12-02 14:06 | P.PN ---
Subjective This is Callie Arechiga PA-C dictating a progress note on this patient The patient was interviewed and examined by me IMPRESSION / ASSESSMENT: syncope, likely related to hypotension Ischemic cardiomyopathy status post ICD implantation Coronary artery disease Diabetes Hyperlipidemia History of hypertension PLAN: Repeat orthostatic vitals, if stable resume home cardiac medications as blood pressure tolerates only if patient is not orthostatic maintain blood pressure >100 mmHg systolic Check cortisol level Continue dual antiplatelet therapy, statins, Ranexa HPI/interval history Patient is a 42-year-old male with a past medical history of ischemic cardiomyopathy status post ICD implantation who presented for syncope. Upon admission he became hypotensive and required pressors. He has been off the pressors. Yesterday orthostatic vital signs were positive for orthostatic hypotension per nurse. His blood pressure has remained in the 110s to 120s systolic today. He is resting comfortably in bed and denies any symptoms, no chest pain or shortness of breath. EXAMINATION Patient seen and examined resting comfortably in bed Number sarah 98.2F, pulse 94, respirations 14, blood pressure 105/73, oxygen saturation 96% on room air Lungs clear to auscultation bilaterally Heart sounds are regular, no murmurs appreciated No elevated JVD REVIEW OF LABS, ECG Hemoglobin 9.9, WBC 4.5, potassium 4.5, BUN 18, creatinine 0.95 Update:in follow-up the cortisol level was within normal limits Objective - Vital Signs Vital signs: Vital Signs Temp 98.2 F 12/02/18 08:00 Pulse 94 12/02/18 10:00 Resp 14 12/02/18 10:00 BP 105/73 12/02/18 10:00 Pulse Ox 96 12/02/18 08:00 Intake & Output 12/01/18 12/02/18 12/02/18 18:59 06:59 18:59 Intake Total 560 300 Output Total 1999 900 Balance -1440 -600 Weight 109.3 kg Intake: IV 60 300 Sodium Chloride 0.9% 1, 60 300 000 ml @ 20 mls/hr IV . Q24H [facility] Rx#:[id number] Oral 500 Output: Urine 1999 900 Other: Voiding Method Toilet # Voids 1 1 - Labs CBC & Chem 7: 12/02/18 05:55 12/02/18 05:55 Labs: Abnormal Lab Results - Last 24 Hours (Table) 12/01/18 12/02/18 12/02/18 Range/Units 20:12 05:55 05:55 RBC 3.84 L (4.30-5.90) m/uL Hgb 9.9 L (13.0-17.5) gm/dL Hct 31.9 L (39.0-53.0) % MCHC 30.8 L (31.0-37.0) g/dL RDW 16.5 H (11.5-15.5) % Sodium 134 L (137-145) mmol/L POC Glucose (mg/dL) 125 H (75-99) mg/dL 12/02/18 Range/Units 12:05 RBC (4.30-5.90) m/uL Hgb (13.0-17.5) gm/dL Hct (39.0-53.0) % MCHC (31.0-37.0) g/dL RDW (11.5-15.5) % Sodium (137-145) mmol/L POC Glucose (mg/dL) 101 H (75-99) mg/dL
[2018-12-02 17:05] LABS: Glucose,Whole Blood 80 mg/dL (75-99)
[2018-12-02] MEDS: FUROSEMIDE 20 MG TAB PO SCH (17:24)
[2018-12-02] MEDS: ROSUVASTATIN 40 MG PO SCH (20:17)
[2018-12-02 20:57] LABS: Glucose,Whole Blood 157 mg/dL (75-99)
[2018-12-02] MEDS: INSULIN DETEMIR (LEVEMIR) 100 UNIT/ML SYR SQ SCH (21:07)
--- NOTE | 2018-12-02 23:54 | P.PN ---
Subjective Progress Note Date: 12/02/18 Principal diagnosis: Syncope Patient is a 48-year-old male with a known history of asthma,Coronary Artery Disease (CAD) with history of stent placement less than a year ago, cardi omyopathy ejection fraction 30-35% Chest Pain / Angina, Heart Failure, CVA/TIA, Diabetes Mellitus insulin-dependent, Deep Vein Thrombosis (DVT), GERD/Reflux, Hyperlipidemia, Hypertension, Myocardial Infarction ([place]), Osteoarthritis ([place]), Pneumonia, Skin Disorder, Sleep Apnea/CPAP/BIPAP and other multiple medical problems came to ER with complaints of Syncopal episode. Patient was hypotensive and requiring pressor support. Currently patient is off the Levaquin drip. Patient was found to have slightly elevated troponin level on admission. 11/30/2018 Patient is currently sitting in a chair comfortably. Alert awake and oriented 3. Patient is still hypotensive. Otherwise patient is currently not requiring pressor support. No complains of chest pain or shortness of breath. Leg swelling improves. AICD was implanted to showed no evidence of arrhythmia. Patient was on pressors support briefly last night. Blood sugar is controlled. Creatinine level improved to 1.14 compared to 1.76 on admission. Chest x-ray showed similar-appearing cecal of congestive heart failure in comparison to 11/29/2018 No fever no chills. No nausea vomiting abdominal pain or diarrhea. No dysuria or hematuria. All other review of systems negative except the above 12/01/2018 8 patient is currently sitting in the chair comfortably. Denied any complaints of chest pain or shortness of breath. blood pressure is stable without pressor support. No complaints of worsening shortness of breath. Patient was started back on diuretics as blood pressure tolerates. No complaints of Nausea vomiting or abdominal pain. Chest x-ray showed increasing right pleural effusion and right basilar airspace disease that may present atelectasis of pneumonia Blood pressure medications are still on hold. Cardiology and pulmonary on board.. 12/02/2018 Patient is currently sitting was a comfortably. No complains of chest pain or shortness of breath. Blood pressure is stable. Patient is orthostatic positive. Cortisol level was ordered. Patient is tolerating oral diet. No nausea vomiting or diarrhea. Tolerating oral diet. Patient will be transferred to medical floor today. Current medications reviewed. Objective - Vital Signs Vital signs: Vital Signs Temp 98.2 F 12/02/18 08:00 Pulse 94 12/02/18 10:00 Resp 14 12/02/18 10:00 BP 105/73 12/02/18 10:00 Pulse Ox 96 12/02/18 08:00 Intake & Output 12/01/18 12/02/18 12/02/18 18:59 06:59 18:59 Intake Total 560 300 Output Total 2000 900 Balance -1440 -600 Weight 109.3 kg Intake: IV 60 300 Sodium Chloride 0.9% 1, 60 300 000 ml @ 20 mls/hr IV . Q24H [facility] Rx#:[id number] Oral 500 Output: Urine 2000 900 Other: Voiding Method Toilet # Voids 1 1 - Exam PHYSICAL EXAMINATION: Patient is lying in the bed comfortably, no acute distress, awake alert and oriented.. HEENT: Normocephalic. Neck is supple. Pupils reactive. Nostrils clear. Oral cavity is moist. Ears reveal no drainage. Neck reveals no JVD, carotid bruits, or thyromegaly. CHEST EXAMINATION: Trachea is central. Symmetrical expansion. Lung hendrix clear to auscultation and percussion. CARDIAC: Normal S1, S2 with no gallops. No murmurs ABDOMEN: Soft. Bowel sounds normal. No organomegaly. No abdominal bruits. Extremities: Bilateral trace edema. No clubbing or cyanosis Neurologically awake, alert, oriented x3 with well-coordinated movements. No focal deficits noted Skin: No rash or skin lesions. Psychiatric: Coperative. Nonsuicidal Musculoskeletal: No joint swelling or deformity. Normal range of motion. - Labs CBC & Chem 7: 12/02/18 05:55 12/02/18 05:55 Labs: Abnormal Lab Results - Last 24 Hours (Table) 12/01/18 12/02/18 12/02/18 Range/Units 20:12 05:55 05:55 RBC 3.84 L (4.30-5.90) m/uL Hgb 9.9 L (13.0-17.5) gm/dL Hct 31.9 L (39.0-53.0) % MCHC 30.8 L (31.0-37.0) g/dL RDW 16.5 H (11.5-15.5) % Sodium 134 L (137-145) mmol/L POC Glucose (mg/dL) 125 H (75-99) mg/dL 12/02/18 Range/Units 12:05 RBC (4.30-5.90) m/uL Hgb (13.0-17.5) gm/dL Hct (39.0-53.0) % MCHC (31.0-37.0) g/dL RDW (11.5-15.5) % Sodium (137-145) mmol/L POC Glucose (mg/dL) 101 H (75-99) mg/dL Assessment and Plan Assessment: Acute syncopal episode likely due to orthostatic hypotension. No arrhythmias noted in the AICD interrogation chronic CHF with systolic dysfunction. Ejection fraction less than 20% Acute on chronic kidney disease stage III. Creatinine 1.72--1.03. Baseline creatinine 1.09 Hyperglycemia with uncontrolled diabetes type 2. A1c 13.6 in July 2018 Multi-Vessel coronary artery disease with recent stent placement at outside hospital facility.. Maximal medical therapy was recommended. ischemic cardiomyopathy Diabetic peripheral neuropathy of bilateral hand and feet Hypertensive heart disease obstructive sleep apnea not on CPAP at home Chronic gastritis Degenerative disc disease Chronic back pain Depression with history of suicide attempts Admitting gastroparesis Psoriasis History of migraine headaches History of TIA Hiatal hernia Right rotator cuff tear history History of CVA in 2018 with TPA administration Coronary artery disease with history of stent placement History of biventricular pacer, AICD placement Anxiety/depression and PTSD History of multiple suicide attempts History of alcohol abuse History of marijuana use DVT prophylaxis Plan: Currently patient is off Levophed drip. Continue to hold blood pressure medica tions. Continue with aspirin and Plavix. Tolerating oral Lasix. Telemetry monitoring. Continue with insulin dosing and monitor blood sugars closely. Cardiology and pulmonary is on board. Prognosis is guarded with multiple medical problems and comorbid conditions. Discussed with the patient and his at bedside in detail. Time with Patient: Greater than 30
[2018-12-03] MEDS: HYDROmorphone 0.5 MG/0.5 ML SYRINGE IVP PRN ×2 (01:57→08:18)
[2018-12-03 05:01] LABS: Anisocytosis Slight; Basophils % (A) 1 %; Eosinophils # (A) 0.2 k/uL (0-0.7); Eosinophils % (A) 3 %; HCT 35.7 % (39.0-53.0); HGB 11.1 gm/dL (13.0-17.5); Hypochromasia Moderate; Lymphocytes % (A) 17 %; MCH 25.7 pg (25.0-35.0); MCV 83.1 fL (80.0-100.0); Mean Platelet Volume 6.9; Monocytes # (A) 0.4 k/uL (0-1.0); Monocytes % (A) 6 %; Neutrophils # (A) 4.2 k/uL (1.3-7.7); Neutrophils % (A) 72 %; Platelet Count 323 k/uL (150-450); Poikilocytosis Slight; RDW 16.2 % (11.5-15.5); WBC 5.8 k/uL (3.8-10.6)
[2018-12-03 05:22] LABS: African American GFR (CKD) >90 (>60 ml/min/1.73 sqM); Anion Gap 9 mmol/L; Blood Urea Nitrogen 18 mg/dL (9-20); Calcium 9.1 mg/dL (8.4-10.2); Carbon Dioxide 25 mmol/L (22-30); Chloride 101 mmol/L (98-107); Glucose 54 mg/dL (74-99); Potassium 4.4 mmol/L (3.5-5.1); Sodium 135 mmol/L (137-145)
[2018-12-03 06:10] LABS: Glucose,Whole Blood 70 mg/dL (75-99)
[2018-12-03 06:52] LABS: Glucose,Whole Blood 88 mg/dL (75-99)
[2018-12-03] MEDS: INSULIN ASPART (NovoLOG) 100 UNIT/ML VIAL SQ SCH ×7 (07:47→20:59)
[2018-12-03 07:50] LABS: Glucose,Whole Blood 124 mg/dL (75-99)
[2018-12-03] MEDS: DULoxetine HCL 60 MG CAPSULE.DR PO SCH ×2 (08:17→20:55)
[2018-12-03] MEDS: FUROSEMIDE 20 MG TAB PO SCH ×2 (08:17→17:05)
[2018-12-03] MEDS: ASPIRIN 81 MG PO SCH (08:17)
[2018-12-03] MEDS: CLOPIDOGREL 75 MG TAB PO SCH (08:17)
[2018-12-03] MEDS: PANTOPRAZOLE 40 MG TABLET PO SCH (08:17)
[2018-12-03] MEDS: PRIMIDONE 50 MG TAB PO SCH ×2 (08:18→20:55)
[2018-12-03] MEDS: ALPRAZolam 0.25 MG TAB PO PRN (08:18)
--- NOTE | 2018-12-03 11:12 | P.PN ---
Subjective Progress Note Date: 12/03/18 Principal diagnosis: Hypotension with acute collapse and loss of consciousness, cardiac in nature unless otherwise. This is a 42-year-old male with an extensive cardiac history. Patient comes in today because he had a syncopal episode at a restaurant. Patient states he felt lightheaded and next thing he knows everybody extending over. Patient complains of chest pain anteriorly and laterally. Patient states he thinks she might of her discomfort when he fell. Patient's not sure if he hit his head or not. Patient states he is short of breath. Patient denies any diaphoretic episodes. Patient denies any nausea at this time. Patient denies any abdominal pain. Patient denies any extremity pain. Patient denies any palpitations. Patient does state that he feels extremely lightheaded. Patient was seen by Dr. Valerio when he was admitted to the ICU yesterday, and he felt that the patient had hypotension, mental status change and collapse secondary to hypotension which is felt to be cardiac in nature unless proven otherwise. Patient is known to have history of coronary artery disease, multiple coronary interventions and stenting, severe ischemic cardiomyopathy, previous AICD placement, obstructive sleep apnea syndrome, and today the patient is barely on any norepinephrine, comfortable, in no distress. His norepinephrine is being titrated, added to likely be discontinued in the next couple of hours. Patient was reevaluated today on 11/30/2018, we are seeing him again for one episode of loss of consciousness associated with low blood pressure. His ICD was interrogated, and there was no evidence of ventricular tachycardia or ventricular fibrillation. Patient is known to have severe coronary artery disease and stenting, he has ischemic cardiomyopathy and previous biventricular ICD implant. Today the patient is doing fairly well, not requiring any pressors or any inotropes, patient is hemodynamically stable, urine output is excellent, last night his blood pressure was marginal. Was on norepinephrine for a couple of hours, and has been off norepinephrine since 1 AM. Labs are unremarkable renal functioning is improving, creatinine is down to 1.14. It was 1.76 on admission. Chest x-ray continues to show evidence of mild pulmonary edema. However the patient is clinically asymptomatic, no cough no wheezing no shortness of breath no chest pain. Reevaluated today on 12/01/2018, patient is doing better, breathing easier, hemodynamically stable, not requiring any pressors or any inotropes. However his chest x-ray is showing increasing right-sided pleural effusion and right basilar atelectasis, hence I recommended starting the patient back again on diuretics. He will be given a dose of Lasix today. Clinically the patient is asymptomatic. And it is felt that the pleural effusion is cardiac in nature unless proven otherwise. No need for thoracentesis, patient actually needs more diuretics. Reevaluated today on 12/02/2018, patient continues to well, hemodynamically stable, no further episodes of hypotension or loss of consciousness. Continues to have a small right-sided pleural effusion, urine output is good, he remains on Lasix. Would suggest maintenance dose of Lasix. Since his blood pressure is stable and his renal functioning is also stable. Reevaluated today on 12/03/2018, patient remains in the ICU as an overflow, doing well, asymptomatic. No cough no wheezing no shortness of breath no chest pain. Objective - Vital Signs Vital signs: Vital Signs Temp 97.5 F L 12/03/18 08:00 Pulse 101 H 12/03/18 11:00 Resp 10 L 12/03/18 11:00 BP 113/75 12/03/18 11:00 Pulse Ox 96 12/03/18 04:00 Intake & Output 12/02/18 12/03/18 12/03/18 18:59 06:59 18:59 Intake Total 900 230 Output Total 1550 1350 Balance -650 -1120 Intake: IV 180 230 Sodium Chloride 0.9% 1, 180 230 000 ml @ 20 mls/hr IV . Q24H [facility] Rx#:[id number] Oral 720 Output: Urine 1550 1350 Other: Voiding Method Toilet Toilet Urinal Urinal # Voids 1 - Exam Physical Exam: Revealed a 42-year-old white male in no distress very pleasant, on room air. Head: Atraumatic, normocephalic. HEENT:[Neck is supple.] [No neck masses.] [No thyromegaly.] [No JVD.] Chest: Minimal fine crackles at the bases no rhonchi no wheezes. Cardiac Exam: [Normal S1 and S2, no S3 gallop, no murmur.] Abdomen: [Soft, nontender, no megaly, no rebound, no guarding, normal bowel sounds.] Extremities: [No clubbing,1+ bipedala, no cyanosis.] Neurological Exam: [No focal neurologic deficit.]Alert oriented 3. Psychiatric: Normal mood affect and mental status examination. Skin: No rashes. Lymphatics: No lymphadenopathy. - Labs CBC & Chem 7: 12/03/18 04:23 12/03/18 04:23 Labs: Abnormal Lab Results - Last 24 Hours (Table) 12/02/18 12/02/18 12/03/18 Range/Units 12:05 20:55 04:23 Hgb 11.1 L (13.0-17.5) gm/dL Hct 35.7 L (39.0-53.0) % RDW 16.2 H (11.5-15.5) % Sodium (137-145) mmol/L Glucose (74-99) mg/dL POC Glucose (mg/dL) 101 H 157 H (75-99) mg/dL 12/03/18 12/03/18 12/03/18 Range/Units 04:23 06:08 07:49 Hgb (13.0-17.5) gm/dL Hct (39.0-53.0) % RDW (11.5-15.5) % Sodium 135 L (137-145) mmol/L Glucose 54 L (74-99) mg/dL POC Glucose (mg/dL) 70 L 124 H (75-99) mg/dL Assessment and Plan Assessment: Impression: 1 hypotension and acute collapse with loss of consciousness, syncope, most likely cardiac in nature, resolved but 2 history of multivessel coronary artery disease and multiple interventions 3 ischemic cardiomyopathy and LV dysfunction ejection fraction of 20% 4 moderate degree of pulmonary hypertension 5 history of pulmonary embolism 6 history of cardiac arrest 7 obstructive sleep apnea syndrome needs to have outpatient workup 8 diabetes 9 hypertension 10 hyperlipidemia 11 history of deep vein thromboses and pulmonary embolism 12 right-sided pleural effusion secondary to congestive heart failure, will need more diuretics. Recommendation: continue diuretics considering his LV dysfunction, Prognosis again remains extremely poor and guarded considering his overall cardiomyopathy and LV dysfunction in spite of his young age. Patient could be considered for discharge in home if agreeable with cardiology, I will sign off and see the patient on when necessary basis. Time with Patient: Less than 30
[2018-12-03 11:24] LABS: Glucose,Whole Blood 69 mg/dL (75-99)
--- NOTE | 2018-12-03 11:35 | P.PN ---
Subjective This is Callie Arechiga PA-C dictating a progress note on this patient The patient was interviewed and examined by me IMPRESSION / ASSESSMENT: Syncope most likely related to hypotension, blood pressure stable Ischemic cardiomyopathy status post ICD implantation Coronary artery disease Diabetes Hyperlipidemia PLAN: Agree with discontinuing all IV pain medications, anxiolytics, and sedatives to prevent hypotension so that we can restart his home cardiac meds today day we will start metoprolol titrate 25 mg twice a day as blood pressure tolerates, maintain blood pressure greater than 100 mmHg systolic add back in another home cardiac medications as blood pressure tolerates Repeat orthostatic vital signs Continue dual antiplatelet therapy, statin, Ranexa HPI/interval history Patient is a 42-year-old male with past medical history of ischemic cardiomyopathy status post ICD placement who presented for syncope. Syncope was most likely due to hypotension. He has been on IV pain medications as well as anxiolytics and his blood pressure was low normal. He had orthostatic hypotension a few days ago per his nurse but this has not been repeated. Blood pressures have been in the 110-120s systolic this morning. Hear rates in the 90s. He is seen and examined resting comfortably in bed. Denies any complaints. No syncope, chest pain, palpitations, shortness of breath, PND or orthopnea.. Has been able to get out of bed but had some mild dizziness upon standing. EXAMINATION Temperature 97.5F, pulse 96, blood pressure 128/84, respiratory rate 14, oxygen saturation 96% on room air Patient seen and examined resting comfortably in bed, in no acute distress Lungs clear to auscultation bilaterally Heart regular, positive S1-S2, no murmurs appreciated No elevated JVD No lower extremity edema Abdomen soft REVIEW OF LABS, ECG WBC 5.8, hemoglobin 11.1, potassium 4.4, BUN 18, creatinine 0.93 Rhythm strips shows biventricular pacing, no ventricular arrhythmias noted Objective - Vital Signs Vital signs: Vital Signs Temp 97.5 F L 12/03/18 08:00 Pulse 101 H 12/03/18 11:00 Resp 10 L 12/03/18 11:00 BP 113/75 12/03/18 11:00 Pulse Ox 96 12/03/18 04:00 Intake & Output 12/02/18 12/03/18 12/03/18 18:59 06:59 18:59 Intake Total 900 230 Output Total 1550 1350 Balance -650 -1120 Intake: IV 180 230 Sodium Chloride 0.9% 1, 180 230 000 ml @ 20 mls/hr IV . Q24H [facility] Rx#:[id number] Oral 720 Output: Urine 1550 1350 Other: Voiding Method Toilet Toilet Urinal Urinal # Voids 1 - Labs CBC & Chem 7: 12/03/18 04:23 12/03/18 04:23 Labs: Abnormal Lab Results - Last 24 Hours (Table) 12/02/18 12/02/18 12/03/18 Range/Units 12:05 20:55 04:23 Hgb 11.1 L (13.0-17.5) gm/dL Hct 35.7 L (39.0-53.0) % RDW 16.2 H (11.5-15.5) % Sodium (137-145) mmol/L Glucose (74-99) mg/dL POC Glucose (mg/dL) 101 H 157 H (75-99) mg/dL 12/03/18 12/03/18 12/03/18 Range/Units 04:23 06:08 07:49 Hgb (13.0-17.5) gm/dL Hct (39.0-53.0) % RDW (11.5-15.5) % Sodium 135 L (137-145) mmol/L Glucose 54 L (74-99) mg/dL POC Glucose (mg/dL) 70 L 124 H (75-99) mg/dL 12/03/18 Range/Units 11:23 Hgb (13.0-17.5) gm/dL Hct (39.0-53.0) % RDW (11.5-15.5) % Sodium (137-145) mmol/L Glucose (74-99) mg/dL POC Glucose (mg/dL) 69 L (75-99) mg/dL
[2018-12-03 11:42] LABS: Glucose,Whole Blood 72 mg/dL (75-99)
[2018-12-03] MEDS: RANOLAZINE 500 MG TAB.ER.12H PO SCH ×2 (11:51→20:55)
[2018-12-03] MEDS: SODIUM CHLORIDE 0.9% 1,000 ML IV SCH ×2 (11:52→18:57)
[2018-12-03] MEDS: HYDROcodone/APAP 5-325MG 1 EACH TAB PO PRN (13:27)
[2018-12-03 16:39] LABS: Glucose,Whole Blood 137 mg/dL (75-99)
[2018-12-03 20:43] LABS: Glucose,Whole Blood 111 mg/dL (75-99)
[2018-12-03] MEDS: METOPROLOL TARTRATE 25 MG TAB PO SCH (20:55)
[2018-12-03] MEDS: ROSUVASTATIN 40 MG PO SCH (20:55)
[2018-12-03] MEDS: INSULIN DETEMIR (LEVEMIR) 100 UNIT/ML SYR SQ SCH (20:59)
--- NOTE | 2018-12-03 22:33 | P.PN ---
Subjective Progress Note Date: 12/03/18 Principal diagnosis: Syncope Patient is a 48-year-old male with a known history of asthma,Coronary Artery Disease (CAD) with history of stent placement less than a year ago, cardi omyopathy ejection fraction 30-35% Chest Pain / Angina, Heart Failure, CVA/TIA, Diabetes Mellitus insulin-dependent, Deep Vein Thrombosis (DVT), GERD/Reflux, Hyperlipidemia, Hypertension, Myocardial Infarction (SD), Osteoarthritis (OA), Pneumonia, Skin Disorder, Sleep Apnea/CPAP/BIPAP and other multiple medical problems came to ER with complaints of Syncopal episode. Patient was hypotensive and requiring pressor support. Currently patient is off the Levaquin drip. Patient was found to have slightly elevated troponin level on admission. 11/30/2018 Patient is currently sitting in a chair comfortably. Alert awake and oriented 3. Patient is still hypotensive. Otherwise patient is currently not requiring pressor support. No complains of chest pain or shortness of breath. Leg swelling improves. AICD was implanted to showed no evidence of arrhythmia. Patient was on pressors support briefly last night. Blood sugar is controlled. Creatinine level improved to 1.14 compared to 1.76 on admission. Chest x-ray showed similar-appearing cecal of congestive heart failure in comparison to 11/29/2018 No fever no chills. No nausea vomiting abdominal pain or diarrhea. No dysuria or hematuria. All other review of systems negative except the above 12/01/2018 8 patient is currently sitting in the chair comfortably. Denied any complaints of chest pain or shortness of breath. blood pressure is stable without pressor support. No complaints of worsening shortness of breath. Patient was started back on diuretics as blood pressure tolerates. No complaints of Nausea vomiting or abdominal pain. Chest x-ray showed increasing right pleural effusion and right basilar airspace disease that may present atelectasis of pneumonia Blood pressure medications are still on hold. Cardiology and pulmonary on board.. 12/02/2018 Patient is currently sitting was a comfortably. No complains of chest pain or shortness of breath. Blood pressure is stable. Patient is orthostatic positive. Cortisol level was ordered. Patient is tolerating oral diet. No nausea vomiting or diarrhea. Tolerating oral diet. Patient will be transferred to medical floor today. 12/03/2018 Patient denied any complains of chest pain or shortness of breath today. Blood pressure is well maintained. Continue on Lasix 20 mg twice a day. Added metoprolol 25 mg twice a day and is being monitoring closely. as of dizziness or lightheadedness today. Orthostatic hypotension is currently negative. Improving clinically overall. IV pain medications have been discontinued and continue with Page currently. Avoid IV pain medication use. Tolerating oral diet. No nausea vomiting or abdominal pain. All other review of systems negative except the above Current medications reviewed. Objective - Vital Signs Vital signs: Vital Signs Temp 98.4 F 12/03/18 12:00 Pulse 91 12/03/18 18:00 Resp 18 12/03/18 18:00 BP 120/73 12/03/18 18:00 Pulse Ox 95 12/03/18 16:00 Intake & Output 12/02/18 12/03/18 12/03/18 18:59 06:59 18:59 Intake Total 900 230 40 Output Total 1550 1350 1280 Balance -650 1120 -1240 Intake: IV 180 230 40 Sodium Chloride 0.9% 1, 180 230 40 000 ml @ 20 mls/hr IV . Q24H [facility] Rx#:[id number] Oral 720 Output: Urine 1550 1350 1280 Other: Voiding Method Toilet Toilet Urinal Urinal # Voids 1 - Exam PHYSICAL EXAMINATION: Patient is lying in the bed comfortably, no acute distress, awake alert and oriented.. HEENT: Normocephalic. Neck is supple. Pupils reactive. Nostrils clear. Oral cavity is moist. Ears reveal no drainage. Neck reveals no JVD, carotid bruits, or thyromegaly. CHEST EXAMINATION: Trachea is central. Symmetrical expansion. Lung hendrix clear to auscultation and percussion. CARDIAC: Normal S1, S2 with no gallops. No murmurs ABDOMEN: Soft. Bowel sounds normal. No organomegaly. No abdominal bruits. Extremities: Bilateral trace edema. No clubbing or cyanosis Neurologically awake, alert, oriented x3 with well-coordinated movements. No focal deficits noted Skin: No rash or skin lesions. Psychiatric: Coperative. Nonsuicidal Musculoskeletal: No joint swelling or deformity. Normal range of motion. - Labs CBC & Chem 7: 12/03/18 04:23 12/03/18 04:23 Labs: Abnormal Lab Results - Last 24 Hours (Table) 12/02/18 12/03/18 12/03/18 Range/Units 20:55 04:23 04:23 Hgb 11.1 L (13.0-17.5) gm/dL Hct 35.7 L (39.0-53.0) % RDW 16.2 H (11.5-15.5) % Sodium 135 L (137-145) mmol/L Glucose 54 L (74-99) mg/dL POC Glucose (mg/dL) 157 H (75-99) mg/dL 12/03/18 12/03/18 12/03/18 Range/Units 06:08 07:49 11:23 Hgb (13.0-17.5) gm/dL Hct (39.0-53.0) % RDW (11.5-15.5) % Sodium (137-145) mmol/L Glucose (74-99) mg/dL POC Glucose (mg/dL) 70 L 124 H 69 L (75-99) mg/dL 12/03/18 12/03/18 Range/Units 11:41 16:37 Hgb (13.0-17.5) gm/dL Hct (39.0-53.0) % RDW (11.5-15.5) % Sodium (137-145) mmol/L Glucose (74-99) mg/dL POC Glucose (mg/dL) 72 L 137 H (75-99) mg/dL Assessment and Plan Assessment: Acute syncopal episode likely due to orthostatic hypotension. No arrhythmias noted in the AICD interrogation. Dizziness is Improving clinically. chronic CHF with systolic dysfunction. Ejection fraction less than 20% Acute on chronic kidney disease stage III. Creatinine 1.72--1.03. Baseline creatinine 1.09 Hyperglycemia with uncontrolled diabetes type 2. A1c 13.6 in July 2018 Multi-Vessel coronary artery disease with recent stent placement at outside hospital facility.. Maximal medical therapy was recommended. ischemic cardiomyopathy Diabetic peripheral neuropathy of bilateral hand and feet Hypertensive heart disease obstructive sleep apnea not on CPAP at home Chronic gastritis Degenerative disc disease Chronic back pain Depression with history of suicide attempts Admitting gastroparesis Psoriasis History of migraine headaches History of TIA Hiatal hernia Right rotator cuff tear history History of CVA in 2018 with TPA administration Coronary artery disease with history of stent placement History of biventricular pacer, AICD placement Anxiety/depression and PTSD History of multiple suicide attempts History of alcohol abuse History of marijuana use DVT prophylaxis Plan: Currently patient is off Levophed drip. Blood pressure medications are being introduced slowly. Currently on Lasix and metoprolol. Continue with aspirin and Plavix. Tolerating oral Lasix. Telemetry monitoring. Continue with insulin dosing and monitor blood sugars closely. Cardiology and pulmonary is on board. Prognosis is guarded with multiple medical problems and comorbid conditions. Discussed with the patient and his at bedside in detail. Time with Patient: Greater than 30
[2018-12-04 02:16] LABS: Glucose,Whole Blood 144 mg/dL (75-99)
[2018-12-04] MEDS: SODIUM CHLORIDE 0.9% 1,000 ML IV SCH ×3 (02:20→23:35)
[2018-12-04] MEDS: HYDROcodone/APAP 5-325MG 1 EACH TAB PO PRN ×3 (06:12→21:10)
[2018-12-04 06:45] LABS: Basophils % (A) 1 %; Eosinophils # (A) 0.1 k/uL (0-0.7); Eosinophils % (A) 2 %; HCT 34.3 % (39.0-53.0); Hypochromasia Marked; Lymphocytes # (A) 1.1 k/uL (1.0-4.8); Lymphocytes % (A) 19 %; MCH 26.1 pg (25.0-35.0); MCHC 32.1 g/dL (31.0-37.0); MCV 81.3 fL (80.0-100.0); Mean Platelet Volume 7.3; Monocytes # (A) 0.3 k/uL (0-1.0); Monocytes % (A) 5 %; Neutrophils # (A) 4.1 k/uL (1.3-7.7); Neutrophils % (A) 70 %; Platelet Count 309 k/uL (150-450); Poikilocytosis Slight; RBC 4.22 m/uL (4.30-5.90); RDW 15.9 % (11.5-15.5); WBC 5.8 k/uL (3.8-10.6)
[2018-12-04 07:04] LABS: Glucose,Whole Blood 96 mg/dL (75-99)
[2018-12-04 07:31] LABS: African American GFR (CKD) >90 (>60 ml/min/1.73 sqM); Anion Gap 10 mmol/L; Blood Urea Nitrogen 21 mg/dL (9-20); Calcium 9.1 mg/dL (8.4-10.2); Carbon Dioxide 24 mmol/L (22-30); Chloride 103 mmol/L (98-107); Glucose 97 mg/dL (74-99); Sodium 137 mmol/L (137-145)
[2018-12-04] MEDS: INSULIN ASPART (NovoLOG) 100 UNIT/ML VIAL SQ SCH ×7 (08:11→21:14)
[2018-12-04] MEDS: ASPIRIN 81 MG PO SCH (08:15)
[2018-12-04] MEDS: PANTOPRAZOLE 40 MG TABLET PO SCH (08:15)
[2018-12-04] MEDS: CLOPIDOGREL 75 MG TAB PO SCH (08:15)
[2018-12-04] MEDS: FUROSEMIDE 20 MG TAB PO SCH ×2 (08:16→15:21)
[2018-12-04] MEDS: ALPRAZolam 0.25 MG TAB PO PRN ×3 (08:16→21:10)
[2018-12-04] MEDS: RANOLAZINE 500 MG TAB.ER.12H PO SCH ×2 (08:16→21:02)
[2018-12-04] MEDS: PRIMIDONE 50 MG TAB PO SCH ×2 (08:16→21:01)
[2018-12-04] MEDS: DULoxetine HCL 60 MG CAPSULE.DR PO SCH ×2 (08:16→21:01)
[2018-12-04] MEDS: METOPROLOL TARTRATE 25 MG TAB PO SCH (08:16)
--- NOTE | 2018-12-04 10:39 | P.PN ---
Subjective Patient is a 48-year-old male with a known history of asthma,Coronary Artery Disease (CAD) with history of stent placement less than a year ago, ca rdiomyopathy ejection fraction 30-35% Chest Pain / Angina, Heart Failure, CVA/TIA, Diabetes Mellitus insulin-dependent, Deep Vein Thrombosis (DVT), GERD/Reflux, Hyperlipidemia, Hypertension, Myocardial Infarction (LA), Osteoarthritis (OA), Pneumonia, Skin Disorder, Sleep Apnea/CPAP/BIPAP and other multiple medical problems came to ER with complaints of Syncopal episode. Patient was hypotensive and requiring pressor support. Currently patient is off the Levaquin drip. Patient was found to have slightly elevated troponin level on admission. 11/30/2018 Patient is currently sitting in a chair comfortably. Alert awake and oriented 3. Patient is still hypotensive. Otherwise patient is currently not requiring pressor support. No complains of chest pain or shortness of breath. Leg swelling improves. AICD was implanted to showed no evidence of arrhythmia. Patient was on pressors support briefly last night. Blood sugar is controlled. Creatinine level improved to 1.14 compared to 1.76 on admission. Chest x-ray showed similar-appearing cecal of congestive heart failure in comparison to 11/29/2018 No fever no chills. No nausea vomiting abdominal pain or diarrhea. No dysuria or hematuria. All other review of systems negative except the above 12/01/2018 8 patient is currently sitting in the chair comfortably. Denied any complaints of chest pain or shortness of breath. blood pressure is stable without pressor support. No complaints of worsening shortness of breath. Patient was started back on diuretics as blood pressure tolerates. No complaints of Nausea vomiting or abdominal pain. Chest x-ray showed increasing right pleural effusion and right basilar airspace disease that may present atelectasis of pneumonia Blood pressure medications are still on hold. Cardiology and pulmonary on board.. 12/02/2018 Patient is currently sitting was a comfortably. No complains of chest pain or shortness of breath. Blood pressure is stable. Patient is orthostatic positive. Cortisol level was ordered. Patient is tolerating oral diet. No nausea vomiting or diarrhea. Tolerating oral diet. Patient will be transferred to medical floor today. 12/03/2018 Patient denied any complains of chest pain or shortness of breath today. Blood pressure is well maintained. Continue on Lasix 20 mg twice a day. Added metoprolol 25 mg twice a day and is being monitoring closely. as of dizziness or lightheadedness today. Orthostatic hypotension is currently negative. Improving clinically overall. IV pain medications have been discontinued and continue with [place] currently. Avoid IV pain medication use. Tolerating oral diet. No nausea vomiting or abdominal pain. All other review of systems negative except the above 12/04/2018 Patient is fully awake and oriented, with no chest pain or dyspnea. No change in urine or bowel habits. No more dizziness or syncope. Patient is being followed closely by ICU team and cardiology team. His IV pain medication was stopped and he was started on metoprolol 25 mg twice daily. His blood pressure this morning is 108/75 and heart rate is 84 regular. He is saturating 98% on room air and his been afebrile.HOWEVER PATIENT STILL FEELS GENERALLY WEAK AND HE MIGHT BENEFIT FROM AN ecf FOR INPATIENT REHAB. Patient is still complaining of from some pain and tenderness at his right rib cage from his CPR on admission. Objective - Vital Signs Vital signs: Vital Signs Temp 98.0 F 12/04/18 08:00 Pulse 84 12/04/18 08:31 Resp 15 12/04/18 08:31 BP 108/75 12/04/18 08:31 Pulse Ox 98 12/04/18 08:25 Intake & Output 12/03/18 12/04/18 12/04/18 18:59 06:59 18:59 Intake Total 40 840 Output Total 1730 1400 500 Balance -1690 -560 -500 Intake: IV 40 340 Sodium Chloride 0.9% 1, 40 340 000 ml @ 20 mls/hr IV . Q24H [facility] Rx#:[id number] Oral 500 Output: Urine 1730 1400 500 Other: Voiding Method Toilet Toilet Urinal Urinal - Exam GENERAL: The patient is alert and oriented x3, not in any acute distress. Well developed, well nourished. HEENT: Pupils are round and equally reacting to light. EOMI. No scleral icterus. No conjunctival pallor. Normocephalic, atraumatic. No pharyngeal erythema. No thyromegaly. CARDIOVASCULAR: S1 and S2 present. No murmurs, rubs, or gallops. Right lower rib cage tenderness -PULMONARY: Chest is clear to auscultation, no wheezing or crackles. ABDOMEN: Soft, nontender, nondistended, normoactive bowel sounds. No palpable organomegaly. MUSCULOSKELETAL: No joint swelling or deformity. EXTREMITIES: No cyanosis, clubbing, or pedal edema. NEUROLOGICAL: Gross neurological examination did not reveal any focal deficits. SKIN: No rashes. - Labs CBC & Chem 7: 12/04/18 05:28 12/04/18 05:28 Labs: Abnormal Lab Results - Last 24 Hours (Table) 12/03/18 12/03/18 12/03/18 Range/Units 11:23 11:41 16:37 RBC (4.30-5.90) m/uL Hgb (13.0-17.5) gm/dL Hct (39.0-53.0) % RDW (11.5-15.5) % BUN (9-20) mg/dL POC Glucose (mg/dL) 69 L 72 L 137 H (75-99) mg/dL 12/03/18 12/04/18 12/04/18 Range/Units 20:41 02:14 05:28 RBC 4.22 L (4.30-5.90) m/uL Hgb 11.0 L (13.0-17.5) gm/dL Hct 34.3 L (39.0-53.0) % RDW 15.9 H (11.5-15.5) % BUN (9-20) mg/dL POC Glucose (mg/dL) 111 H 144 H (75-99) mg/dL 12/04/18 Range/Units 05:28 RBC (4.30-5.90) m/uL Hgb (13.0-17.5) gm/dL Hct (39.0-53.0) % RDW (11.5-15.5) % BUN 21 H (9-20) mg/dL POC Glucose (mg/dL) (75-99) mg/dL Assessment and Plan Assessment: Acute syncopal episode likely due to orthostatic hypotension. No arrhythmias noted in the AICD interrogation. Dizziness is Improving clinically. chronic CHF with systolic dysfunction. Ejection fraction less than 20% Acute on chronic kidney disease stage III. Creatinine 1.72--1.03. Baseline creatinine 1.09 Hyperglycemia with uncontrolled diabetes type 2. A1c 13.6 in July 2018 Multi-Vessel coronary artery disease with recent stent placement at outside hospital facility.. Maximal medical therapy was recommended. ischemic cardiomyopathy Diabetic peripheral neuropathy of bilateral hand and feet Hypertensive heart disease obstructive sleep apnea not on CPAP at home Chronic gastritis Degenerative disc disease Chronic back pain Depression with history of suicide attempts Admitting gastroparesis Psoriasis History of migraine headaches History of TIA Hiatal hernia Right rotator cuff tear history History of CVA in 2018 with TPA administration Coronary artery disease with history of stent placement History of biventricular pacer, AICD placement Anxiety/depression and PTSD History of multiple suicide attempts History of alcohol abuse History of marijuana use DVT prophylaxis Plan: Currently patient is off Levophed drip. Blood pressure medications are being introduced slowly. Currently on Lasix and metoprolol. Continue with aspirin and Plavix. Tolerating oral Lasix. Telemetry monitoring. Continue with insulin dosing and monitor blood sugars closely. Cardiology and pulmonary is on board. Prognosis is guarded with multiple medical problems and comorbid conditions. Continue with DVT and GI prophylaxis. Further recommendations pending the clinical course of the patient.
[2018-12-04 12:13] LABS: Glucose,Whole Blood 155 mg/dL (75-99)
[2018-12-04] MEDS ORDERED: LISINOPRIL 10 MG TAB PO SCH (15:00)
[2018-12-04 16:53] LABS: Glucose,Whole Blood 79 mg/dL (75-99)
--- NOTE | 2018-12-04 20:31 | P.PN ---
Niharika Luke is sitting up comfortably in the chair. He is not orthostatic anymore. He has no symptoms of chest discomfort dizziness lightheadedness palpitations. He looks very comfortable On examination he is afebrile 98. pulse rate in the 80s is biventricular paced. Blood pressure 115/88 mmHg and Head neck examination is normal heart sounds S1-S2 normal no murmurs or gallop or rub Breath sounds are clear no rhonchi no crackles Abdomen is soft nontender lower extremities warm no edema Impression Known ischemic cardiomyopathy Known coronary artery disease Status post bi v ICD Patient admitted with syncope secondary to hypotension. No evidence for any ventricular fibrillation or ventricular tachycardia on ICD interrogation His blood pressure is now normalized and I will restart his cardiac medications gradually. He may be transferred to the medical floor without telemetry. Objective - Vital Signs Vital signs: Vital Signs Temp 98.1 F 12/04/18 16:00 Pulse 73 12/04/18 16:00 Resp 18 12/04/18 16:00 BP 104/72 12/04/18 16:00 Pulse Ox 96 12/04/18 16:00 Intake & Output 12/03/18 12/04/18 12/04/18 18:59 06:59 18:59 Intake Total 40 840 Output Total 1730 1400 500 Balance -1690 -560 -500 Intake: IV 40 340 Sodium Chloride 0.9% 1, 40 340 000 ml @ 20 mls/hr IV . Q24H JAKE Rx#:[id number] Oral 500 Output: Urine 1730 1400 500 Other: Voiding Method Toilet Toilet Urinal Urinal # Voids 1 # Bowel Movements 1 - Labs CBC & Chem 7: 12/04/18 05:28 12/04/18 05:28 Labs: Abnormal Lab Results - Last 24 Hours (Table) 12/03/18 12/03/18 12/04/18 Range/Units 16:37 20:41 02:14 RBC (4.30-5.90) m/uL Hgb (13.0-17.5) gm/dL Hct (39.0-53.0) % RDW (11.5-15.5) % BUN (9-20) mg/dL POC Glucose (mg/dL) 137 H 111 H 144 H (75-99) mg/dL 12/04/18 12/04/18 12/04/18 Range/Units 05:28 05:28 12:11 RBC 4.22 L (4.30-5.90) m/uL Hgb 11.0 L (13.0-17.5) gm/dL Hct 34.3 L (39.0-53.0) % RDW 15.9 H (11.5-15.5) % BUN 21 H (9-20) mg/dL POC Glucose (mg/dL) 155 H (75-99) mg/dL
[2018-12-04 20:55] LABS: Glucose,Whole Blood 142 mg/dL (75-99)
[2018-12-04] MEDS: METOPROLOL TARTRATE 50 MG TAB PO SCH (21:01)
[2018-12-04] MEDS: ROSUVASTATIN 40 MG PO SCH (21:02)
[2018-12-04] MEDS: INSULIN DETEMIR (LEVEMIR) 100 UNIT/ML SYR SQ SCH (21:14)
[2018-12-05 04:02] LABS: Glucose,Whole Blood 144 mg/dL (75-99)
[2018-12-05 07:02] LABS: Glucose,Whole Blood 121 mg/dL (75-99)
[2018-12-05] MEDS: INSULIN ASPART (NovoLOG) 100 UNIT/ML VIAL SQ SCH ×3 (07:37→11:51)
[2018-12-05] MEDS: PANTOPRAZOLE 40 MG TABLET PO SCH (07:44)
--- NOTE | 2018-12-05 08:20 | CT ---
EXAMINATION TYPE: CT brain wo con DATE OF EXAM: 12/05/2018 COMPARISON: 11/28/2018 INDICATION: Right sided numbness DLP: 1189.4 mGycm, Automated exposure control for dose reduction was used. CONTRAST: None CT of the brain is performed utilizing 3 mm thick sections through the posterior fossa and 3 mm thick sections through the remaining calvarium. Study is performed within 24 hours of arrival to the hosp ital. No abnormal hyperdensity is present to suggest an acute intracranial hemorrhage. No mass lesion is evident. No acute infarcts are evident. Scattered periventricular and subcortical white matter changes are mos t likely on the basis of chronic white matter ischemic change. Ventricles and sulci are prominent for the patient age compatible with age-related atrophy. Paranasal sinuses and mastoid air cells within the [id number] are clear. IMPRESSIONS: 1. Some mild white matter change and early atrophy. Consider follow-up MRI. 2. No acute intracranial process
[2018-12-05 08:30] VITALS: BP 103/71; PULSE 72; RESP 18; TEMP 97.7
[2018-12-05] MEDS: CLOPIDOGREL 75 MG TAB PO SCH (08:47)
[2018-12-05] MEDS: RANOLAZINE 500 MG TAB.ER.12H PO SCH (08:47)
[2018-12-05] MEDS: FUROSEMIDE 20 MG TAB PO SCH (08:47)
[2018-12-05] MEDS: DULoxetine HCL 60 MG CAPSULE.DR PO SCH (08:47)
[2018-12-05] MEDS: PRIMIDONE 50 MG TAB PO SCH (08:47)
[2018-12-05] MEDS: METOPROLOL TARTRATE 50 MG TAB PO SCH (08:47)
[2018-12-05] MEDS: ASPIRIN 81 MG PO SCH (08:47)
[2018-12-05] MEDS: HYDROcodone/APAP 5-325MG 1 EACH TAB PO PRN (08:52)
[2018-12-05] MEDS ORDERED: ASPIRIN 81 MG PO STA (09:12)
[2018-12-05] MEDS: ALPRAZolam 0.25 MG TAB PO PRN (10:08)
[2018-12-05 11:52] LABS: Glucose,Whole Blood 107 mg/dL (75-99)
--- NOTE | 2018-12-05 12:03 | P.PN ---
Subjective This is Callie Arechiga PA-C dictating a progress note on this patient The patient was interviewed and examined by me as well as by Dr. Kang Case discussed with Dr. Kang and he agrees with the plan of care IMPRESSION / ASSESSMENT: Syncope most likely secondary to hypotension due to medications, blood pressure stable after medication adjustment History of coronary artery disease status post CABG History of ischemic cardiomyopathy status post ICD placement Hypertension Diabetes Dyslipidemia PLAN: Continue current medication regimen including dual antiplatelet therapy, statins, Lasix, lisinopril 10 mg daily, metoprolol tartrate 50 mg twice a day, Ranexa Patient is stable to go home from a cardiac standpoint on his current medication regimen from a cardiac standpoint, we will sign off now HPI/interval history Patient is a 42-year-old male with a past medical history of known coronary artery disease and known ischemic cardiomyopathy status post BiIV ICD who presented to the emergency department with syncope. This was most likely caused by hypotension due to combination of metoprolol and carvedilol. His cardiac medications have been restarted and adjusted and his blood pressure has remained stable. No more orthostatic hypotension. He seen and examined sitting comfortably in his chair. No complaints, no more dizziness, lightheadedness, or syncope. Denies chest pain or shortness of breath. EXAMINATION Temperature 97.7F, pulse 72, blood pressure 103/71, respirations 18, oxygen saturation 90% on room air Patient seen and examined resting comfortably in his chair, no acute distress Lungs clear to auscultation bilaterally Heart sounds are regular, normal S1 and S2, no murmurs appreciated No lower extremity edema No elevated JVD REVIEW OF LABS, ECG Rhythm strips show biventricular pacing, no ventricular arrhythmias noted overnight WBC 5.8, hemoglobin 11.0, potassium 5.0, BUN 21, creatinine 0.95 Objective - Vital Signs Vital signs: Vital Signs Temp 97.7 F 12/05/18 08:00 Pulse 72 12/05/18 08:00 Resp 18 12/05/18 08:00 BP 103/71 12/05/18 08:00 Pulse Ox 100 12/05/18 08:00 Intake & Output 12/04/18 12/05/18 12/05/18 18:59 06:59 18:59 Intake Total 1040 Output Total 500 380 Balance -500 1040 -380 Intake: Oral 1040 Output: Urine 500 380 Other: Voiding Method Toilet Toilet Urinal Urinal # Voids 1 2 # Bowel Movements 1 1 - Labs CBC & Chem 7: 12/04/18 05:28 12/04/18 05:28 Labs: Abnormal Lab Results - Last 24 Hours (Table) 12/04/18 12/04/18 12/05/18 Range/Units 12:11 20:53 04:00 POC Glucose (mg/dL) 155 H 142 H 144 H (75-99) mg/dL 12/05/18 12/05/18 Range/Units 07:00 11:50 POC Glucose (mg/dL) 121 H 107 H (75-99) mg/dL
[2018-12-05] MEDS ORDERED: INSULIN ASPART (NovoLOG) 100 UNIT/ML VIAL SQ SCH (12:30)
[2018-12-05] MEDS ORDERED: HYDROmorphone 0.5 MG/0.5 ML SYRINGE IVP STA (12:58)
[2018-12-05] MEDS ORDERED: HYDROcodone/APAP 7.5-325MG 1 EACH TAB PO PRN (13:23)
--- NOTE | 2018-12-05 14:50 | P.DS ---
Providers Date of admission: 11/28/18 13:23 Attending physician: Safia Clay Consults: 11/28/18 13:23 Consult Physician Urgent Consulting Provider: Xavier Valerio Consult Reason/Comments: Critical care management Do you want consulting provider notified?: Yes Consult Physician Urgent Consulting Provider: [facility] Consult Reason/Comments: Non-STEMI, syncope, hypotension Do you want consulting provider notified?: Yes 12/05/18 09:03 Consult Physician Routine Consulting Provider: Dilma Vasquez Consult Reason/Comments: right face pain Do you want consulting provider notified?: Yes Primary care physician: [facility] Hospital Course: Diagnoses: Right-sided numbness of the face, and and lower extremity. CAT scan of the head is negative. Acute syncopal episode likely due to orthostatic hypotension. No arrhythmias noted in the AICD interrogation. Dizziness is Improving clinically. cardiac arrest status post CPR about 1-2 weeks ago as per family Right lower rib cage pain and tenderness, some CPR as per patient chronic CHF with systolic dysfunction. Ejection fraction less than 20% Acute on chronic kidney disease stage III. Creatinine 1.72--1.03. Baseline creatinine 1.09 Hyperglycemia with uncontrolled diabetes type 2. A1c 13.6 in July 2018, and 11.0 on 11/2018 Multi-Vessel coronary artery disease with recent [facility].. Maximal medical therapy was recommended. ischemic cardiomyopathy Diabetic peripheral neuropathy of bilateral hand and feet Hypertensive heart disease obstructive sleep apnea not on CPAP at home Chronic gastritis Degenerative disc disease Chronic back pain Depression with history of suicide attempts Admitting gastroparesis Psoriasis History of migraine headaches History of TIA Hiatal hernia Right rotator cuff tear history History of CVA in 2018 with TPA administration Coronary artery disease with history of stent placement History of biventricular pacer, AICD placement Anxiety/depression and PTSD History of multiple suicide attempts History of alcohol abuse History of marijuana use Hospital course: Patient is a 48-year-old male with a known history of asthma,Coronary Artery Disease (CAD) with history of stent placement less than a year ago, cardiomyopathy ejection fraction 30-35% Chest Pain / Angina, Heart Failure, CVA/TIA, Diabetes Mellitus insulin-dependent, Deep Vein Thrombosis (DVT), GERD/Reflux, Hyperlipidemia, Hypertension, Myocardial Infarction ([place]), Osteoarthritis (OA), Pneumonia, Skin Disorder, Sleep Apnea/CPAP/BIPAP and other multiple medical problems came to ER with complaints of Syncopal episode. Patient was admitted to the ICU, he was hypotensive and requiring pressor support. Currently patient is off the Levaquin drip. Patient was found to have slightly elevated troponin level on admission. Patient has been evaluated by road advisor. No evidence for any ventricular fibrillation or ventricular tachycardia on ICD interrogation. His blood pressure is normalized. Patient to Continue on Lasix 20 mg twice a day. Added metoprolol 25 mg twice a day and is being monitoring closely. Orthostatic hypotension is currently negative. Improving clinically overall. Patient has been stabilized by road advisor and he can been transferred to the general medical floor. Patient developed right-sided numbness of his face right and and medial part of the forearm, and the posterior aspect of his right lower extremity. No weakness in upper or lower extremity. no slurred speech. No facial droop. No difficulty swallowing. he Remains alert awake and oriented to time, place and person. CAT scan of the brain shows no acute process and chronic ischemic events. Patient is on Plavix and aspirin was increased from 81 to 162 mg daily. Also his insulin dose was lowered to Levemir 30 units at bedtime and NovoLog 8 units with meals, as he has episodes of low sugar for example 69 and 51. Initially patient refused to be transferred to tertiary center and he wanted to go home , however later on patient pt changed his mind and he agrees to go to her [facility]. Discussed case with HF at bedtime and they kindly accepted the patient. Problems and management plan were discussed with the patient and he verbalized understanding and acceptance. Patient was found stable and can be transferred to at bedtime in guarded prognosis Gen: patient is a AAOx3, no distress CVS: S1-S2, RRR, no murmur Lungs: B/L CTA, no wheezing Abdomen: soft, no distention, no tenderness, positive bowel sounds Extremity: no leg edema or induration Neuro: Alert, awake and oriented to time Lasix and person. Radial nerves are grossly intact. Strength is 5/5 in all extremities. Patient complaining of from numbness in his right hand and lower extremity and face. Meningeal signs are absent Time spent more than 35 minutes Plan - Discharge Summary Discharge Rx Participant: Yes New Discharge Prescriptions: Discontinued hydrALAZINE HCL [Apresoline] 25 mg PO TID Carvedilol [Coreg] 3.125 mg PO BID No Action Clopidogrel [Plavix] 75 mg PO QAM Digoxin [Digitek] 125 mcg PO DAILY Spironolactone [Aldactone] 25 mg PO DAILY Albuterol Inhaler [Ventolin Hfa Inhaler] 2 puff INHALATION RT-Q6H PRN PRN Reason: Shortness Of Breath Primidone [Mysoline] 100 mg PO BID Pantoprazole [Protonix] 40 mg PO DAILY DULoxetine HCL [Cymbalta] 60 mg PO BID capsule. Aspirin EC [Ecotrin Low Dose] 81 mg PO DAILY Torsemide [Demadex] 20 mg PO BID Ranolazine [Ranexa] 500 mg PO BID Nitroglycerin Sl Tabs [Nitrostat] 0.4 mg SUBLINGUAL Q5M PRN PRN Reason: Chest Pain Insulin Glargine,Hum.rec.anlog [Basaglar Kwikpen U-100] 50 unit SQ HS Insulin Aspart [NovoLOG Flexpen] 16 units SQ AC-TID Metoprolol Tartrate [Lopressor] 50 mg PO BID Tamsulosin HCl [Flomax] 0.4 mg PO DAILY Atorvastatin [Lipitor] 40 mg PO HS #30 tablet hydrOXYzine PAMOATE 50 mg PO HS PRN PRN Reason: Itching Lisinopril [Prinivil] 10 mg PO DAILY Furosemide [Lasix] 20 mg PO DAILY Isosorbide Dinitrate 10 mg PO TID Discharge Medication List Clopidogrel [Plavix] 75 mg PO QAM 12/03/17 [History] Digoxin [Digitek] 125 mcg PO DAILY 02/01/18 [History] Spironolactone [Aldactone] 25 mg PO DAILY 02/01/18 [History] Albuterol Inhaler [Ventolin Hfa Inhaler] 2 puff INHALATION RT-Q6H PRN 04/01/18 [History] Pantoprazole [Protonix] 40 mg PO DAILY 04/01/18 [History] Primidone [Mysoline] 100 mg PO BID 04/01/18 [History] DULoxetine HCL [Cymbalta] 60 mg PO BID capsule. 05/10/18 [Rx] Aspirin EC [Ecotrin Low Dose] 81 mg PO DAILY 07/20/18 [History] Torsemide [Demadex] 20 mg PO BID 10/31/18 [History] Ranolazine [Ranexa] 500 mg PO BID 11/06/18 [History] Insulin Aspart [NovoLOG Flexpen] 16 units SQ AC-TID 11/08/18 [History] Insulin Glargine,Hum.rec.anlog [Basaglar Kwikpen U-100] 50 unit SQ HS 11/08/18 [History] Metoprolol Tartrate [Lopressor] 50 mg PO BID 11/08/18 [History] Nitroglycerin Sl Tabs [Nitrostat] 0.4 mg SUBLINGUAL Q5M PRN 11/08/18 [History] Tamsulosin HCl [Flomax] 0.4 mg PO DAILY 11/08/18 [History] Atorvastatin [Lipitor] 40 mg PO HS #30 tablet 11/10/18 [Rx] hydrOXYzine PAMOATE 50 mg PO HS PRN 11/14/18 [History] Furosemide [Lasix] 20 mg PO DAILY 11/28/18 [History] Isosorbide Dinitrate 10 mg PO TID 11/28/18 [History] Lisinopril [Prinivil] 10 mg PO DAILY 11/28/18 [History] Follow up Appointment(s)/Referral(s): [facility], [NON-STAFF] - 1-2 Days Junie New MD [Primary Care Provider] - 1-2 days (Stop hydralazine Stop carvedilol)
[2018-12-05] MEDS ORDERED: INSULIN DETEMIR (LEVEMIR) 100 UNIT/ML SYR SQ SCH ×2 (21:00)
[2018-12-06] MEDS ORDERED: ASPIRIN 81 MG PO SCH (09:00)
== END 2018-12-05 15:02 | disposition short-term general hospital (02) | DRG 312 ==
LOC: EC 10:10 → 2SICU 13:23
PROVIDERS: ADMIT Hospitalist; ATTEND Hospitalist
PROC: 04HY32Z Insertion of Monitoring Device into Lower Artery, Percutaneous Approach (ICD-10-PCS; principal; 2018-11-28)
PROC: 4A133J1 Monitoring of Arterial Pulse, Peripheral, Percutaneous Approach (ICD-10-PCS; principal; 2018-11-28)
PROC: 4A133B1 Monitoring of Arterial Pressure, Peripheral, Percutaneous Approach (ICD-10-PCS; principal; 2018-11-28)
DX: I95.2 Hypotension due to drugs (principal); I49.01 Ventricular fibrillation; E87.1 Hypo-osmolality and hyponatremia; I13.0 Hypertensive heart and chronic kidney disease with heart failure and stage 1 through stage 4 chronic kidney disease, or unspecified chronic kidney disease; I50.22 Chronic systolic (congestive) heart failure; J98.11 Atelectasis; D63.8 Anemia in other chronic diseases classified elsewhere; E11.22 Type 2 diabetes mellitus with diabetic chronic kidney disease; E11.42 Type 2 diabetes mellitus with diabetic polyneuropathy; E11.43 Type 2 diabetes mellitus with diabetic autonomic (poly)neuropathy; E11.65 Type 2 diabetes mellitus with hyperglycemia; E66.9 Obesity, unspecified; E78.5 Hyperlipidemia, unspecified; F17.200 Nicotine dependence, unspecified, uncomplicated; F32.9 Major depressive disorder, single episode, unspecified; F43.10 Post-traumatic stress disorder, unspecified; G47.00 Insomnia, unspecified; G47.33 Obstructive sleep apnea (adult) (pediatric); G89.29 Other chronic pain; I25.10 Atherosclerotic heart disease of native coronary artery without angina pectoris; I25.2 Old myocardial infarction; I25.5 Ischemic cardiomyopathy; I27.20 Pulmonary hypertension, unspecified; J45.909 Unspecified asthma, uncomplicated; K21.9 Gastro-esophageal reflux disease without esophagitis; T44.7X5A Adverse effect of beta-adrenoreceptor antagonists, initial encounter; K29.50 Unspecified chronic gastritis without bleeding; K31.84 Gastroparesis; K44.9 Diaphragmatic hernia without obstruction or gangrene; L40.9 Psoriasis, unspecified; M19.90 Unspecified osteoarthritis, unspecified site; N18.3 Chronic kidney disease, stage 3 (moderate); W19.XXXA Unspecified fall, initial encounter; Z79.02 Long term (current) use of antithrombotics/antiplatelets; Z79.4 Long term (current) use of insulin; Z79.82 Long term (current) use of aspirin; Z79.899 Other long term (current) drug therapy; Z82.0 Family history of epilepsy and other diseases of the nervous system; Z82.49 Family history of ischemic heart disease and other diseases of the circulatory system; Z83.3 Family history of diabetes mellitus; Z86.14 Personal history of Methicillin resistant Staphylococcus aureus infection; Z86.711 Personal history of pulmonary embolism; Z86.718 Personal history of other venous thrombosis and embolism; Z86.73 Personal history of transient ischemic attack (TIA), and cerebral infarction without residual deficits; Z87.01 Personal history of pneumonia (recurrent); Z91.19 Patient's noncompliance with other medical treatment and regimen; Z91.5 Personal history of self-harm; Z95.1 Presence of aortocoronary bypass graft; Z95.5 Presence of coronary angioplasty implant and graft; Z95.810 Presence of automatic (implantable) cardiac defibrillator; Z88.8 Allergy status to other drugs, medicaments and biological substances; Z88.1 Allergy status to other antibiotic agents; Z91.041 Radiographic dye allergy status; Z88.5 Allergy status to narcotic agent; Z91.013 Allergy to seafood; Z99.89 Dependence on other enabling machines and devices; Z90.49 Acquired absence of other specified parts of digestive tract
CPT/HCPCS: 36410; 36415; 36556; 70450; 71045; 71046; 72125; 80048; 80053; 80162; 81003; 82533; 83036; 83735; 84100; 84484; 85025; 85610; 85730; 93005; 93306; 96365; 96366; 96368; 96375; 96376; 99291

== ENCOUNTER 2018-12-10 17:38 | Inpatient (IN) | payer MEDICARE, OTHER ==
[2018-12-10] MEDS ORDERED: MORPHINE SULFATE 4 MG/ML SYRINGE IV STA (18:03)
[2018-12-10 18:51] LABS: Anisocytosis Slight; Basophils # (A) 0.1 k/uL (0-0.2); Basophils % (A) 1 %; Eosinophils # (A) 0.2 k/uL (0-0.7); Eosinophils % (A) 4 %; HCT 31.5 % (39.0-53.0); Hypochromasia Marked; Lymphocytes # (A) 1.1 k/uL (1.0-4.8); Lymphocytes % (A) 17 %; MCHC 31.8 g/dL (31.0-37.0); MCV 81.8 fL (80.0-100.0); Mean Platelet Volume 7.8; Monocytes # (A) 0.3 k/uL (0-1.0); Monocytes % (A) 5 %; Neutrophils # (A) 4.5 k/uL (1.3-7.7); Neutrophils % (A) 71 %; Platelet Count 251 k/uL (150-450); Poikilocytosis Slight; RBC 3.85 m/uL (4.30-5.90); RDW 16.4 % (11.5-15.5); WBC 6.3 k/uL (3.8-10.6)
[2018-12-10 18:56] LABS: ALT 19 U/L (21-72); AST 21 U/L (17-59); African American GFR (CKD) >90 (>60 ml/min/1.73 sqM); Albumin 3.1 g/dL (3.5-5.0); Alkaline Phosphatase 134 U/L (38-126); Anion Gap 8 mmol/L; Blood Urea Nitrogen 24 mg/dL (9-20); Calcium 8.5 mg/dL (8.4-10.2); Carbon Dioxide 25 mmol/L (22-30); Chloride 103 mmol/L (98-107); Digoxin <0.4 ng/mL; Glucose 140 mg/dL (74-99); Magnesium 1.8 mg/dL (1.6-2.3); Potassium 4.4 mmol/L (3.5-5.1); Sodium 136 mmol/L (137-145); Total Bilirubin 0.6 mg/dL (0.2-1.3); Total Protein 5.5 g/dL (6.3-8.2)
--- NOTE | 2018-12-10 18:56 | XR ---
EXAMINATION TYPE: XR chest 2V DATE OF EXAM: 12/10/2018 COMPARISON: 12/01/2018 HISTORY: Chest pain TECHNIQUE: Frontal and lateral views of the chest are obtained. FINDINGS: There is blunting of right costophrenic angle. There is no heart failure. Heart appears en larged. There is left axillary pacemaker. There is some linear density in the right midlung. IMPRESSION: Right pleural effusion and right lower lobe infiltrate and atelectasis unchanged compare d to last exam. No gross heart failure.
[2018-12-10 18:58] LABS: INR 1.1 (<1.2); Partial Thromboplastin Time 23.6 sec (22.0-30.0); Prothrombin Time 11.7 sec (9.0-12.0)
[2018-12-10] MEDS ORDERED: MORPHINE SULFATE 4 MG/ML SYRINGE IVP STA (21:49)
--- NOTE | 2018-12-10 22:08 | ED ---
Chest Pain HPI - General Chief Complaint: Chest Pain Stated Complaint: Chest Pain Source: patient, EMS Mode of arrival: EMS Limitations: no limitations - History of Present Illness Initial Comments: The patient is a 42-year-old male with significant past medical history of cardiac disease who presents to the emergency room with chest pain. The patient had a reported cardiac arrest several weeks ago per the patient. States that he was transferred down to [facility] where he spends a significant period of time in the intensive care unit intubated. He received 2 stents in his heart. His reported that the patient is not a candidate for bypass her no further treatment recommendations as the patient is maximum medical therapy. He does report that he has a follow-up appointment coming up next week with the naturopathic doctor. Yesterday the patient went to family night and states that he was having difficulty in regulating with his walker. He states he could only walk a few steps for becoming short of breath and had to sit down. Today this patient states that he was sitting in his recliner when he had sudden onset of chest pain. Describes it as substernal chest pain with radiation to his left arm. He has associated diaphoresis and nausea. He called EMS who transported him to the hospital. He did receive 4 chewable aspirins and a nitro. He arrives and does have improvement in his pain. He is notably tachycardic. He denies ripping or tearing sensation to his back. He denies any abdominal pain or vomiting. No reported fevers, chills, cough or hemoptysis. He states he has been taking all of his medications as directed. He is on Plavix. There are no other alleviating, precipitating or modifying factors - Related Data Home Medications Medication Instructions Recorded Confirmed Clopidogrel [Plavix] 75 mg PO QAM 12/03/17 12/10/18 Albuterol Inhaler [Ventolin Hfa 2 puff INHALATION RT-Q6H PRN 04/01/18 12/10/18 Inhaler] Pantoprazole [Protonix] 40 mg PO DAILY 04/01/18 12/10/18 Primidone [Mysoline] 100 mg PO BID 04/01/18 12/10/18 Aspirin EC [Ecotrin Low Dose] 81 mg PO DAILY 07/20/18 12/10/18 Ranolazine [Ranexa] 500 mg PO BID 11/06/18 12/10/18 Insulin Aspart [NovoLOG Flexpen] 16 units SQ AC-TID 11/08/18 12/10/18 Metoprolol Tartrate [Lopressor] 50 mg PO BID 11/08/18 12/10/18 Nitroglycerin Sl Tabs [Nitrostat] 0.4 mg SUBLINGUAL Q5M PRN 11/08/18 12/10/18 Tamsulosin HCl [Flomax] 0.4 mg PO DAILY 11/08/18 12/10/18 Furosemide [Lasix] 20 mg PO DAILY 11/28/18 12/10/18 Isosorbide Dinitrate 10 mg PO TID 11/28/18 12/10/18 Insulin Glargine [Lantus] 35 units SQ HS 12/10/18 12/10/18 Morphine Sulfate 7.5 mg PO DAILY PRN 12/10/18 12/10/18 Rosuvastatin Calcium [Crestor] 40 mg PO DAILY 12/10/18 12/10/18 Previous Rx's Medication Instructions Recorded DULoxetine HCL [Cymbalta] 60 mg PO BID capsule. 05/10/18 Allergies Allergy/AdvReac Type Severity Reaction Status Date / Time erythromycin base Allergy Severe Rash/Hives Verified 12/10/18 18:11 [Erythromycin Base] cephalexin monohydrate Allergy Unknown Rash/Hives Verified 12/10/18 18:11 [From Keflex] codeine Allergy Unknown Unknown Verified 12/10/18 18:11 meclizine Allergy Unknown Unknown Verified 12/10/18 18:11 Penicillins Allergy Unknown Rash/Hives Verified 12/10/18 18:11 shellfish derived Allergy Unknown Anaphylaxis Verified 12/10/18 18:11 Fish Containing Products Allergy Anaphylaxis Verified 12/10/18 18:11 [Fish] Iodinated Contrast- Oral and Allergy Anaphylaxis Verified 12/10/18 18:11 IV Dye naproxen AdvReac Unknown Compromises Verified 12/10/18 18:11 Kidney Function atorvastatin calcium AdvReac Myalgia Verified 12/10/18 18:11 [From Lipitor] hydrocodone [From [place]] AdvReac Rapid Verified 12/11/18 00:07 Heart Rate Review of Systems ROS Statement: Those systems with pertinent positive or pertinent negative responses have been documented in the HPI. ROS Other: All systems not noted in ROS Statement are negative. EKG Findings - EKG Comments: EKG Findings:: EKG demonstrates a sinus tachycardia with a ventricular rate of 100. The patient is being paced appropriately. There is overall low voltage. No acute ST segment elevations or depressions concerning for ischemic changes. EKG is compared to previous and is similar. No sgarbossa criteria. HI interval is 174. QRS 90. QTc 430 Past Medical History Past Medical History: Asthma, Coronary Artery Disease (CAD), Chest Pain / Angina, Heart Failure, CVA/TIA, Diabetes Mellitus, Deep Vein Thrombosis (DVT), GERD/Reflux, Hyperlipidemia, Hypertension, Myocardial Infarction ([place]), Osteoarthritis (OA), Pneumonia, Skin Disorder, Sleep Apnea/CPAP/BIPAP Additional Past Medical History / Comment(s): multiple vessel CAD, ischemic cardiomyopathy, diabetic neuropathy bilateral hands and feet, hypertensive cardiovascular disease, SHELIA with no device, chronic gastritis, degenerative disc disease, chronic back pain, depression with hx of suicide attempts, gastroparesis, psoriasis, UTI, migraines, TIA, PUD, hiatal hernia, L rotator cuff tear, bronchitis, pseudoaneurysm L groin post procedure. 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 Date of Last Stent Placement:: 10/2017 Type of Cardiac Device: Biventricular Pacemaker, AICD Device Placement Date:: 09/19/15 Past Psychological History: Anxiety, Depression, PTSD Smoking Status: Never smoker Past Alcohol Use History: None Reported Past Drug Use History: None Reported - Past Family History Mother Family Medical History: Coronary Artery Disease (CAD), Myocardial Infarction (PA) Additional Family Medical History / Comment(s): 7 PA and faulty heart valve. Pt does not know the age when mother had her PA's. Father History Unknown: Yes Additional Family Medical History / Comment(s): Does not know who father is. Brother(s) Family Medical History: Cancer, Congestive Heart Failure (CHF), Myocardial Infarction (PA) Additional Family Medical History / Comment(s): Parkinsons. Pt does not know at what age his brother had an PA. Patient's other brother has lung CA Patient has Family Medical History: No Reported History Additional Family Medical History / Comment(s): There is a strong family history for heart disease, hypertension, and diabetes. General Exam Limitations: no limitations Course Vital Signs 12/10/18 12/10/18 17:40 22:12 Temperature 98.6 F Pulse Rate 110 H 92 Respiratory 19 16 Rate Blood Pressure 121/73 125/89 O2 Sat by Pulse 98 100 Oximetry Chest Pain MDM - MDM Upon arrival the patient is placed in a trauma bay 1. He is hooked up to continuous pulse ox and cardiac monitoring. A 12-lead EKG is performed which demonstrated a sinus tachycardia. There are no acute changes from the patient's previous EKG. We did obtain IV access and the patient's neck. A 18-gauge was placed in the patient's right EJ. This was performed with ultrasound guidance. The patient is administered 4 mg of morphine. Laboratory studies were conducted and the patient was sent for chest x-ray. Upon return results are discussed with the patient. I did discuss the diagnosis, differential and treatment options. The patient is requesting something additionally for pain and is given a second dose of 4 mg of morphine. Because the patient's significant cardiac history did recommend admission to the hospital. I did call and discuss the case with Dr. Gallagher except admission of the patient. Bridging orders are placed. I will continue to trend the patient's troponins and a cardiology con sult. The patient remained in stable condition was transported to floor Disposition Clinical Impression: Chest pain, Congestive heart failure, Systolic CHF, acute on chronic, Exertional dyspnea Disposition: ADMITTED IP TO THIS HOSP Is patient prescribed a controlled substance at d/c from ED?: No Decision to Admit Reason: Admit from EC Decision Date: 12/10/18 Decision Time: 22:13
[2018-12-10] MEDS ORDERED: NALOXONE 0.4 MG/ML 1 ML VIAL IV PRN (22:13)
[2018-12-10] MEDS ORDERED: FUROSEMIDE 10 MG/ML 4 ML VIAL IV STA (22:18)
[2018-12-10] MEDS ORDERED: ALBUTEROL NEBULIZED 2.5 MG/3 ML INHALATION PRN (22:23)
[2018-12-10] MEDS ORDERED: METOPROLOL TARTRATE 50 MG TAB PO SCH (22:30)
[2018-12-10 23:33] LABS: Glucose,Whole Blood 142 mg/dL (75-99)
[2018-12-11] MEDS ORDERED: INSULIN DETEMIR (LEVEMIR) 100 UNIT/ML SYR SQ SCH ×3 (00:15→21:00)
[2018-12-11] MEDS ORDERED: MORPHINE SULFATE ER 15 MG TABLET PO SCH (01:08)
[2018-12-11] MEDS ORDERED: diphenhydrAMINE 25 MG CAP PO STA (01:09)
[2018-12-11] MEDS ORDERED: MORPHINE SULFATE IR 15 MG TABLET PO PRN ×2 (01:14→08:07)
[2018-12-11 05:32] LABS: Glucose,Whole Blood 191 mg/dL (75-99)
[2018-12-11 06:45] LABS: Glucose,Whole Blood 190 mg/dL (75-99)
[2018-12-11 07:12] LABS: Anisocytosis Slight; Basophils # (A) 0.1 k/uL (0-0.2); Basophils % (A) 1 %; Eosinophils # (A) 0.3 k/uL (0-0.7); Eosinophils % (A) 5 %; HCT 39.5 % (39.0-53.0); HGB 11.5 gm/dL (13.0-17.5); Hypochromasia Marked; Lymphocytes # (A) 1.5 k/uL (1.0-4.8); Lymphocytes % (A) 26 %; MCH 25.3 pg (25.0-35.0); MCHC 29.1 g/dL (31.0-37.0); MCV 86.7 fL (80.0-100.0); Mean Platelet Volume 7.6; Monocytes # (A) 0.3 k/uL (0-1.0); Monocytes % (A) 5 %; Neutrophils # (A) 3.5 k/uL (1.3-7.7); Neutrophils % (A) 60 %; Platelet Count 240 k/uL (150-450); Poikilocytosis Slight; RBC 4.56 m/uL (4.30-5.90); RDW 16.1 % (11.5-15.5); WBC 5.8 k/uL (3.8-10.6)
[2018-12-11 07:29] LABS: Calcium 9.1 mg/dL (8.4-10.2)
[2018-12-11 07:30] LABS: Potassium 5.1 mmol/L (3.5-5.1)
[2018-12-11] MEDS ORDERED: NITROGLYCERIN SL TABS 0.4 MG TAB SUBLINGUAL PRN (08:07)
--- NOTE | 2018-12-11 08:12 | P.HPIM ---
History of Present Illness Patient is a 48-year-old male with a known history of asthma,Coronary Artery Disease (CAD) with history of stent placement less than a year ago, cardiomyopathy ejection fraction less than 20 % Chest Pain / Angina, Heart Failure, CVA/TIA, Diabetes Mellitus insulin-dependent, Deep Vein Thrombosis (DVT), GERD/Reflux, Hyperlipidemia, Hypertension, Myocardial Infarction (AL), Osteoarthritis (OA), Pneumonia, Skin Disorder, Sleep Apnea/CPAP/BIPAP and other multiple medical problems came to ER with complaints of shortness of breath and not feeling well. Patient is known to our service as he was admitted last week for syncope with orthostatic hypotension, about time his interrogation of his ICD showing no cardiac arrhythmia. At that time he needed short course of the pressors in the ICU due to his low blood pressure. Eventually blood pressure was stable yet He was transferred to [facility] for right-sided numbness of the face and extremities, while there was no neurologist in house at this hospital. As per patient nothing much has been done for him at [facility] and his been discharged with same treatment. He states that his numbness in his right side are gone now. He presents this time with dyspnea and chest pain. He was in his recliner washing TV yesterday when he felt central chest pain, about 10/10 in severity, compared to 5/10 currently. 4:00 sharp and radiating to the left arm and hand. Associated with some dyspnea. Patient also has been complaining of from generalized weakness over the last 2 days that he has been using a walker. Patient on admission was febrile, however this morning he was hypotensive 88/56, with heart rate 77, oxygen saturation 95% on room air. A small bolus of fluid is a provided. CBC showing only mild anemia with hemoglobin at 11.5, while WBC and platelets are within normal limits. Sodium is 136, creatinine close to baseline at 1.37, glucose is 142-188. Troponin is 0.023 and 0.027, INR is 1.1. Chest x-ray showing right pleural effusion right lower lobe infiltrate and atelectasis. Review of Systems CONSTITUTIONAL: No fever, no malaise, no fatigue. HEENT: No recent visual problems or hearing problems. Denied any sore throat. CARDIOVASCULAR: no syncope. PULMONARY: no cough, no hemoptysis. GASTROINTESTINAL: No diarrhea, no nausea, no vomiting, no abdominal pain. Normoactive bowel sounds. NEUROLOGICAL: No headaches, no weakness, no numbness. HEMATOLOGICAL: Denies any bleeding or petechiae. GENITOURINARY: Denies any burning micturition, frequency, or urgency. MUSCULOSKELETAL/RHEUMATOLOGICAL: Denies any joint pain, swelling, or any muscle pain. ENDOCRINE: Denies any polyuria or polydipsia. Past Medical History Past Medical History: Asthma, Coronary Artery Disease (CAD), Chest Pain / Angina, Heart Failure, CVA/TIA, Diabetes Mellitus, Deep Vein Thrombosis (DVT), GERD/Reflux, Hyperlipidemia, Hypertension, Myocardial Infarction (AL), Osteoarthritis (OA), Pneumonia, Skin Disorder, Sleep Apnea/CPAP/BIPAP Additional Past Medical History / Comment(s): multiple vessel CAD, ischemic cardiomyopathy, diabetic neuropathy bilateral hands and feet, hypertensive cardiovascular disease, SHELIA with no device, chronic gastritis, degenerative disc disease, chronic back pain, depression with hx of suicide attempts, gastroparesis, psoriasis, UTI, migraines, TIA, PUD, hiatal hernia, L rotator cuff tear, bronchitis, pseudoaneurysm L groin post procedure. 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 Date of Last Stent Placement:: 10/2017 Type of Cardiac Device: Biventricular Pacemaker, AICD Device Placement Date:: 09/19/15 Past Psychological History: Anxiety, Depression, PTSD Smoking Status: Never smoker Past Alcohol Use History: None Reported Past Drug Use History: None Reported - Past Family History Mother Family Medical History: Coronary Artery Disease (CAD), Myocardial Infarction (AL) Additional Family Medical History / Comment(s): 7 AL and faulty heart valve. Pt does not know the age when mother had her AL's. Father History Unknown: Yes Additional Family Medical History / Comment(s): Does not know who father is. Brother(s) Family Medical History: Cancer, Congestive Heart Failure (CHF), Myocardial Infarction (AL) Additional Family Medical History / Comment(s): Parkinsons. Pt does not know at what age his brother had an AL. Patient's other brother has lung CA Patient has Family Medical History: No Reported History Additional Family Medical History / Comment(s): There is a strong family history for heart disease, hypertension, and diabetes. Medications and Allergies Home Medications Medication Instructions Recorded Confirmed Type Clopidogrel [Plavix] 75 mg PO QAM 12/03/17 12/10/18 History Albuterol Inhaler [Ventolin Hfa 2 puff INHALATION RT-Q6H PRN 04/01/18 12/10/18 History Inhaler] Pantoprazole [Protonix] 40 mg PO DAILY 04/01/18 12/10/18 History Primidone [Mysoline] 100 mg PO BID 04/01/18 12/10/18 History DULoxetine HCL [Cymbalta] 60 mg PO BID capsule. 05/10/18 12/10/18 Rx Aspirin EC [Ecotrin Low Dose] 81 mg PO DAILY 07/20/18 12/10/18 History Ranolazine [Ranexa] 500 mg PO BID 11/06/18 12/10/18 History Insulin Aspart [NovoLOG Flexpen] 16 units SQ AC-TID 11/08/18 12/10/18 History Metoprolol Tartrate [Lopressor] 50 mg PO BID 11/08/18 12/10/18 History Nitroglycerin Sl Tabs [Nitrostat] 0.4 mg SUBLINGUAL Q5M PRN 11/08/18 12/10/18 History Tamsulosin HCl [Flomax] 0.4 mg PO DAILY 11/08/18 12/10/18 History Furosemide [Lasix] 20 mg PO DAILY 11/28/18 12/10/18 History Isosorbide Dinitrate 10 mg PO TID 11/28/18 12/10/18 History Insulin Glargine [Lantus] 35 units SQ HS 12/10/18 12/10/18 History Morphine Sulfate 7.5 mg PO DAILY PRN 12/10/18 12/10/18 History Rosuvastatin Calcium [Crestor] 40 mg PO DAILY 12/10/18 12/10/18 History Allergies Allergy/AdvReac Type Severity Reaction Status Date / Time erythromycin base Allergy Severe Rash/Hives Verified 12/10/18 18:11 [Erythromycin Base] cephalexin monohydrate Allergy Unknown Rash/Hives Verified 12/10/18 18:11 [From Keflex] codeine Allergy Unknown Unknown Verified 12/10/18 18:11 meclizine Allergy Unknown Unknown Verified 12/10/18 18:11 Penicillins Allergy Unknown Rash/Hives Verified 12/10/18 18:11 shellfish derived Allergy Unknown Anaphylaxis Verified 12/10/18 18:11 Fish Containing Products Allergy Anaphylaxis Verified 12/10/18 18:11 [Fish] Iodinated Contrast- Oral and Allergy Anaphylaxis Verified 12/10/18 18:11 IV Dye naproxen AdvReac Unknown Compromises Verified 12/10/18 18:11 Kidney Function atorvastatin calcium AdvReac Myalgia Verified 12/10/18 18:11 [From Lipitor] hydrocodone [From [place]] AdvReac Rapid Verified 12/11/18 00:07 Heart Rate Physical Exam Vitals: Vital Signs Temp Pulse Pulse Pulse Resp BP BP 12/11/18 07:21 12/11/18 06:45 88/56 12/11/18 05:55 77 100/55 12/11/18 05:45 98/55 12/11/18 04:00 97.6 F 98 15 119/86 12/10/18 23:33 98.0 F 92 14 143/86 12/10/18 22:12 92 16 125/89 12/10/18 17:40 98.6 F 110 H 19 121/73 Pulse Ox 12/11/18 07:21 95 12/11/18 06:45 12/11/18 05:55 12/11/18 05:45 12/11/18 04:00 98 12/10/18 23:33 97 12/10/18 22:12 100 12/10/18 17:40 98 Intake and Output 12/10/18 12/11/18 12/11/18 22:59 06:59 14:59 Other: Voiding Method Toilet # Voids 1 Weight 115.3 kg GENERAL: The patient is alert and oriented x3, not in any acute distress. Obese Generally weak HEENT: Pupils are round and equally reacting to light. EOMI. No scleral icterus. No conjunctival pallor. Normocephalic, atraumatic. No pharyngeal erythema. No thyromegaly. CARDIOVASCULAR: S1 and S2 present. No murmurs, rubs, or gallops. PULMONARY: Chest is clear to auscultation, no wheezing or crackles. ABDOMEN: Soft, nontender, nondistended, normoactive bowel sounds. No palpable organomegaly. MUSCULOSKELETAL: No joint swelling or deformity. -EXTREMITIES: No cyanosis, clubbing. Bilateral 1+ pitting leg edema NEUROLOGICAL: Gross neurological examination did not reveal any focal deficits. SKIN: No rashes. Results CBC & Chem 7: 12/11/18 06:53 12/11/18 06:53 Labs: Abnormal Lab Results - Last 24 Hours (Table) 12/10/18 12/10/18 12/10/18 Range/Units 18:34 18:34 23:31 RBC 3.85 L (4.30-5.90) m/uL Hgb 10.0 L (13.0-17.5) gm/dL Hct 31.5 L (39.0-53.0) % MCHC (31.0-37.0) g/dL RDW 16.4 H (11.5-15.5) % Sodium 136 L (137-145) mmol/L Carbon Dioxide (22-30) mmol/L BUN 24 H (9-20) mg/dL Creatinine (0.66-1.25) mg/dL Glucose 140 H (74-99) mg/dL POC Glucose (mg/dL) 142 H (75-99) mg/dL ALT 19 L (21-72) U/L Alkaline Phosphatase 134 H (38-126) U/L Total Protein 5.5 L (6.3-8.2) g/dL Albumin 3.1 L (3.5-5.0) g/dL 12/11/18 12/11/18 12/11/18 Range/Units 05:30 06:39 06:53 RBC (4.30-5.90) m/uL Hgb 11.5 L (13.0-17.5) gm/dL Hct (39.0-53.0) % MCHC 29.1 L (31.0-37.0) g/dL RDW 16.1 H (11.5-15.5) % Sodium (137-145) mmol/L Carbon Dioxide (22-30) mmol/L BUN (9-20) mg/dL Creatinine (0.66-1.25) mg/dL Glucose (74-99) mg/dL POC Glucose (mg/dL) 191 H 190 H (75-99) mg/dL ALT (21-72) U/L Alkaline Phosphatase (38-126) U/L Total Protein (6.3-8.2) g/dL Albumin (3.5-5.0) g/dL 12/11/18 Range/Units 06:53 RBC (4.30-5.90) m/uL Hgb (13.0-17.5) gm/dL Hct (39.0-53.0) % MCHC (31.0-37.0) g/dL RDW (11.5-15.5) % Sodium 136 L (137-145) mmol/L Carbon Dioxide 20 L (22-30) mmol/L BUN 26 H (9-20) mg/dL Creatinine 1.37 H (0.66-1.25) mg/dL Glucose 188 H (74-99) mg/dL POC Glucose (mg/dL) (75-99) mg/dL ALT (21-72) U/L Alkaline Phosphatase (38-126) U/L Total Protein (6.3-8.2) g/dL Albumin (3.5-5.0) g/dL Thrombosis Risk Factor Assmnt - Choose All That Apply Any of the Below Risk Factors Present?: Yes Each Factor Represents 1 point: Age 41-60 years, Obesity (BMI >25), Swollen legs (current) Other Risk Factors: No Other congenital or acquired thrombophilia - If yes, enter type in comment: No Thrombosis Risk Factor Assessment Total Risk Factor Score: 3 Thrombosis Risk Factor Assessment Level: Moderate Risk Assessment and Plan Assessment: Chest pain and dyspnea, rule out cardiac causes Acute on chronic kidney disease stage III. Creatinine 1.37 on admission. Baseline creatinine 0.9-1.0 Hypotension Right lower rib cage pain and tenderness, related to CPR as per patient Recent history of Right-sided numbness of the face, and and lower extremity. CAT scan of the head is negative. Recent history of syncopal episode likely due to orthostatic hypotension. No arrhythmias noted in the AICD interrogation. Dizziness is Improving clinically. Recent history of cardiac arrest status post CPR about 2 weeks , patient was treated at her report chronic CHF with systolic dysfunction. Ejection fraction less than 20%, ischemic cardiomyopathy. Status post biventricular pacer, AICD placement Hyperglycemia with uncontrolled diabetes type 2. A1c 13.6 in July 2018, and 11.0 on 11/2018 Multi-Vessel coronary artery disease with recent stent placement at outside hospital facility.. Maximal medical therapy was recommended. Diabetic peripheral neuropathy of bilateral hand and feet Hypertensive heart disease obstructive sleep apnea not on CPAP at home Chronic gastritis Degenerative disc disease Chronic back pain History of Anxiety/depression and PTSD, with history of suicide attempts History of gastroparesis History of Psoriasis History of migraine headaches History of TIA Hiatal hernia Right rotator cuff tear history History of CVA in 2018 with TPA administration History of alcohol abuse History of marijuana use Plan: This is a pleasant 42 years old male who presents with chest pain and exertional dyspnea in view of his ischemic cardiomyopathy. Will call cardiology consult. Monitor vitals closely. After stabilization we'll ask for physical therapy evaluation. We'll check Doppler of the lower extremity to rule out DVT.check ultrasound of the chest for his pleural effusion. We'll ask for pulmonary evaluation for his symptoms have pleural effusion. Hold Lasix for now. Continue with insulin Levemir and insulin sliding scale. Labs and medication were reviewed.. Continue same treatment. Continue with symptomatic treatment. Resume home medication. Monitor lytes and vitals. DVT and GI prophylaxis. Further recommendations of the clinical course of the patient DVT prophylaxis: Subcutaneous heparin GI Prophylaxis: Pepcid PT/OT: Pending Prognosis is guarded
[2018-12-11] MEDS: ASPIRIN 81 MG PO SCH (08:35)
[2018-12-11] MEDS: CLOPIDOGREL 75 MG TAB PO SCH (08:35)
[2018-12-11] MEDS: DULoxetine HCL 60 MG CAPSULE.DR PO SCH ×2 (08:35→20:39)
[2018-12-11] MEDS: TAMSULOSIN 0.4 MG CAP.ER.24H PO SCH (08:35)
[2018-12-11] MEDS: PANTOPRAZOLE 40 MG TABLET PO SCH (08:36)
[2018-12-11] MEDS: RANOLAZINE 500 MG TAB.ER.12H PO SCH ×2 (08:36→22:31)
[2018-12-11] MEDS ORDERED: SODIUM CHLORIDE 0.9% 500 ML 250 ML IV ONE (08:44)
[2018-12-11] MEDS: PRIMIDONE 50 MG TAB PO SCH ×2 (08:47→20:39)
[2018-12-11] MEDS ORDERED: ISOSORBIDE DINITRATE 10 MG TAB PO SCH (09:00)
[2018-12-11] MEDS: INSULIN ASPART (NovoLOG) 100 UNIT/ML VIAL SQ SCH ×3 (09:17→17:57)
--- NOTE | 2018-12-11 09:47 | US ---
EXAMINATION TYPE: US chest DATE OF EXAM: 12/11/2018 COMPARISON: NONE CLINICAL HISTORY: right pleural effusion . TECHNIQUE: Targeted ultrasound of the posterior lower EXAM MEASUREMENTS: Right Pleural Effusion pocket size: 11.1 cm Right skin surface to fluid distance: 5.2 cm Right side marked for possible thoracentesis outside the dept. Pulmonologists are able to review the images in the patient?s EMR. IMPRESSIONS: RIGHT-SIDED PLEURAL EFFUSION.
--- NOTE | 2018-12-11 09:49 | US ---
EXAMINATION TYPE: US venous doppler duplex LE DATE OF EXAM: 12/11/2018 9:37 AM COMPARISON: Previous study dated 07/07/2018. CLINICAL HISTORY: Rule out DVT, leg swelling, CHF, SOB SIDE PERFORMED: Bilateral TECHNIQUE: The lower extremity deep venous system is examined utilizing real time linear array sonog mami with graded compression, doppler sonography and color-flow sonography. VESSELS IMAGED: External Iliac Vein (EIV) Common Femoral Vein Deep Femoral Vein Greater Saphenous Vein * Femoral Vein Popliteal Vein Small Saphenous Vein * Proximal Calf Veins (* superficial vessels) Patient has severe pitting edema in legs, technically difficult study. Right Leg: Appears negative for DVT Left Leg: Appears negative for DVT, technologist unable to reach left leg to augment. Proximal calf veins not seen. No popliteal fossa lesion is seen. IMPRESSION: MILDLY DIFFICULT EXAMINATION DEMONSTRATING NO THROMBUS UPON THE LEVEL OF THE POPLITEAL VEIN.
[2018-12-11 10:42] LABS: Glucose,Whole Blood 156 mg/dL (75-99)
[2018-12-11 11:57] LABS: Glucose,Whole Blood 127 mg/dL (75-99)
--- NOTE | 2018-12-11 12:04 | CONS ---
CONSULTATION This is a consultation for shortness of breath and chest pain. DATE OF CONSULTATION: December 11, 2018 HISTORY OF PRESENT ILLNESS: This is a 42-year-old male with a significant cardiac history. He apparently presented to the emergency room with complaints of chest pain. He is status post cardiac arrest several weeks ago. He was transferred down to [facility]. There, he was intubated in the intensive care unit. He received 2 stents to his heart. The patient apparently is not a candidate for further treatments and he is currently on maximal medical therapy. The patient has been seen by Cardiology today as well. The patient apparently was complaining of shortness of breath as well. His chest x-ray shows a right-sided pleural effusion, which is not much different from his last visit. The patient is lying down in the OBS unit. The nurses were concerned because of his breathing and also because of his chest pain. In addition to that, the patient apparently was having some hypotension. For that reason, we were consulted. We decided to move the patient into the intensive care unit not as an ICU patient, but as a selective overflow. There apparently were no selective overflow beds at the time. He denies any cough or phlegm production. He denies any fever, chills. There is no nausea, vomiting or diarrhea. His is at the bedside. I did speak to Cardiology about the patient. MEDICATIONS: At home are numerous and include Plavix, Ventolin inhaler, Protonix, Mysoline, low-dose Ecotrin, Ranexa, NovoLog, FlexPen, Lopressor, Nitrostat, Flomax, Lasix, Imdur, Lantus insulin, morphine, and Crestor. He is also apparently on Cymbalta. ALLERGIES: INCLUDE KEFLEX, ERYTHROMYCIN, CODEINE, MECLIZINE, PENICILLIN, SHELLFISH AND IVP DYE. HE IS ALSO ALLERGIC TO NAPROXEN. Additionally, he apparently has been intolerant to statin drugs, Lipitor and [place]. PAST MEDICAL HISTORY: Positive for mild asthma, CAD, angina pectoris, congestive heart failure, CVA, diabetes, DVT, GERD, hyperlipidemia, hypertension, myocardial infarction, DJD, pneumonia and sleep apnea syndrome. He has multivessel CAD, ischemic cardiomyopathy. Ejection fraction is rather poor. In addition, he has peptic ulcer disease and psoriasis. SURGICAL HISTORY: Positive for AICD placement, appendectomy, cholecystectomy, heart catheterization with stent, hernia repair. He has had multiple cardiac procedures and catheterizations. The last of which apparently was at [facility]. Other surgical procedures include a right orchiectomy and right hand surgery, colonoscopy, cystoscopy and umbilical hernia repair. SOCIAL HISTORY: Negative for tobacco use. Denies any alcohol use or illicit drug use. FAMILY HISTORY: Extensive. Mother has CAD and myocardial infarction and valvular heart disease. Father's history is unknown. He does not know his father. He has a brother with cancer, heart failure, myocardial infarction, Parkinson disease. The cancer is lung cancer. There is also strong family history for heart disease, hypertension, and diabetes. OCCUPATIONAL HISTORY: That he is disabled. REVIEW OF SYSTEMS: CONSTITUTIONAL weakness. NEUROLOGIC negative. HEENT negative. CARDIOVASCULAR: Chest pain. PULMONARY: Shortness of breath. GI negative. negative. RHEUMATOLOGIC negative. IMMUNOLOGIC negative. ENDOCRINOLOGIC negative. DERMATOLOGIC negative. PHYSICAL EXAMINATION: VITAL SIGNS: Current vital signs are reviewed. Temperature 97.6. Heart rate 77. Respiratory rate 15, blood pressure 100/55, mean 70. Room air saturations 98%. GENERAL: Appears in no acute distress. HEENT examination is grossly unremarkable. No supplemental oxygen noted. NECK: Supple. Full range of motion. No adenopathy or thyromegaly. Neck veins are flat. CARDIOVASCULAR examination reveals distant heart sounds. Heart rate about 80 beats per minute. There is a soft systolic murmur. S1, S2 normal. LUNGS: Diminished breath sounds at the right base. There is some dullness at the right base. There are some mild bibasilar crackles. No wheezes. ABDOMEN: Obese. Bowel sounds are heard. EXTREMITIES are intact. There is edema. There is 1+. It is pitting. SKIN: Without rash. NEUROLOGIC examination is brief but nonfocal. LAB DATA: Reviewed. White count 5.8, hemoglobin 11.5, hematocrit 39.5, platelet count 240,000. Sodium 136, potassium 5.1, chloride 104, CO2 20, anion gap is 12, BUN and creatinine were 26 and 1.37. Troponins are 0.027, 0.023. Venous Doppler study shows no evidence of DVT. A chest x-ray shows cardiomegaly, AICD device and right pleural effusion which is unchanged compared to the prior examination done on December 01. Medications are reviewed. ASSESSMENT: 1. Chest pain, not thought to represent acute ischemia at this time according to Cardiology. 2. History of extensive cardiac history including chronic congestive heart failure, ischemic cardiomyopathy, coronary artery disease and multiple stent placements. 3. History of mild asthma, inactive at this time. 4. Diabetes mellitus. 5. Obesity. 6. History of deep venous thrombosis. 7. Gastroesophageal reflux disease. 8. Angina pectoris. 9. Cerebrovascular accident. 10.Hypertension. 11.Myocardial infarction by history. 12.Degenerative joint disease. 13.History of psoriasis. 14.Sleep apnea syndrome. 15.Hypotension secondary to severe cardiomyopathy. PLAN: The patient was transferred up to the ICU as a selective overflow patient. His medications are appropriate. We will continue to follow. Nothing to do at this point from our standpoint. Chest x-ray is unchanged. Should the effusion worsen, should become more short of breath, might give consideration to thoracentesis. Of course, at that point, aspirin and Plavix would have to be held. Additional recommendations and suggestions are forthcoming. Again prognosis is very guarded. MMODL / IJN: [id number] /
--- NOTE | 2018-12-11 13:22 | P.CRDCN ---
History of Present Illness History of present illness: This is a 42-year-old For coronary artery disease status post multivessel PCI, PEA cardiac arrest, ischemic cardiomyopathy status post AICD placement, dyslipidemia, myocardial infarction, hypertension, depression, CVA, diabetes mellitus and history of DVT and PE in the past. He came to the hospital symptoms of chest discomfort. He states he is having a sharp pain in the midsternal region associated with shortness of breath he states that the pain is worse when he takes in a deep breath. He recently came to the hospital and was found to be in PEA arrest, he was coded and transported to [facility] where he underwent further angioplasty per the patient. Since that time he has been struggling with his blood pressure. He states he feels increasingly fatigued, lightheaded and short of breath. Blood pressure this morning 88/56 and 84/52. Heart rate in the 70s. EKG sinus mechanism ventricular paced, no acute ST or T wave abnormalities noted. Chest x-ray reveals right pleural effusion and right lower lobe infiltrate unchanged from previous with no overt heart failure noted. Ultrasound of the chest revealed a right-sided pleural effusion with a pocket size of 11.1 cm. Laboratory data reviewed, WBC 5.8, hemoglobin 11.5, platelets 240, sodium 136, potassium 5.1, creatinine 1.37 with a GFR 63, troponin negative 3. Current daily cardiac medications include aspirin 81 mg daily, Plavix 75 mg daily, Lasix 20 mg daily, isosorbide dinitrate 10 mg 3 times a day, Lopressor 50 mg twice a day, Ranexa 500 mg twice a day and rosuvastatin 40 mg daily. Most recent echocardiogram obtained 10/30/2018 reveals impaired LV systolic function with ejection fraction 20-25%, global hypokinesia, mild MR, moderate TR and moderate pulmonary hypertension with an RVSP of 51 mmHg. At the time of my exam: CONSTITUTIONAL: Denies fever. Denies chills. EYES: Denies blurred vision. Denies vision changes. Denies eye pain. EARS, NOSE, MOUTH & THROAT: Denies headache. Denies sore throat. Denies ear pain. CARDIOVASCULAR: Complains of pleuritic chest pain. Complains of shortness of br eath. Denies orthopnea. Denies PND. Denies palpitations. RESPIRATORY: Denies cough. GASTROINTESTINAL: Denies abdominal pain. Denies diarrhea. Denies constipation. Denies nausea. Denies vomiting. MUSCULOSKELETAL: Denies myalgias. INTEGUMENTARY: Denies pruitis. Denies rash. NEUROLOGIC: Denies numbness. Denies tingling. Denies weakness. PSYCHIATRIC: Denies anxiety. Denies depression. ENDOCRINE: Complains of fatigue. Denies weight change. Denies polydipsia. Denies polyurina. GENITOURINARY: Denies burning, hematuria or urgency with micturation. HEMATOLOGIC: Denies history of anemia. Denies bleeding. Blood pressure 91/52 heart rate 78 afebrile maintaining oxygen saturation on room air GENERAL: This is a 42-year-old male in no apparent distress at the time of my examination. Generalized pallor noted. HEENT: Head is atraumatic, normocephalic. Pupils are equal, round. Sclerae anicteric. Conjunctivae are clear. Mucous membranes of the mouth are moist. Neck is supple. There is no jugular venous distention. No carotid bruit is heard. LUNGS: Clear to auscultation no wheezes, rales or rhonchi. No chest wall tenderness is noted on palpation or with deep breathing. HEART: Regular rate and rhythm with murmur at the left sternal border,no rubs or gallops. S1 and S2 heard. ABDOMEN: Soft, nontender. Bowel sounds are heard. No organomegaly noted. EXTREMITIES: No evidence of peripheral edema and no calf tenderness noted. VASCULAR: Radial and dorsalis pedis pulses palpated, no evidence of clubbing. NEUROLOGIC: Patient is awake, alert and oriented x3. ASSESSMENT Chest pain, atypical for angina. Pleuritic features. An acute coronary event has been ruled out. Chronic systolic heart failure Hypotension Pleural effusion History of hypertension Ischemic cardiomyopathy status post AICD placement Dyslipidemia Depression Diabetes mellitus History of CVA Morbid obesity, BMI 41 PLAN Hold Lasix, Imdur, Lopressor and Ranexa secondary to hypotension. Continue aspirin, Plavix and rosuvastatin as previously ordered. Repeat limited echo to assess for pericardial effusion. Consider discontinuation or at least decreasing the amount and frequency of the pain medication secondary to contribution to hypotension. Prognosis extremely guarded. Further recommendations to follow based upon clinical course. Thank you kindly for this consultation. Nurse Practitioner note has been reviewed, I agree with a documented findings and plan of care. Patient was seen and examined. came in with sharp mid-sternal chest pain described as sharp worse when he took a deep breath, c/o associated shortness of breath. Past Medical History Past Medical History: Asthma, Coronary Artery Disease (CAD), Chest Pain / Angina, Heart Failure, CVA/TIA, Diabetes Mellitus, Deep Vein Thrombosis (DVT), GERD/Reflux, Hyperlipidemia, Hypertension, Myocardial Infarction (SD), Osteoarthritis (OA), Pneumonia, Skin Disorder, Sleep Apnea/CPAP/BIPAP Additional Past Medical History / Comment(s): multiple vessel CAD, ischemic cardiomyopathy, diabetic neuropathy bilateral hands and feet, hypertensive cardiovascular disease, SHELIA with no device, chronic gastritis, degenerative disc disease, chronic back pain, depression with hx of suicide attempts, gastroparesis, psoriasis, UTI, migraines, TIA, PUD, hiatal hernia, L rotator cuff tear, bronchitis, pseudoaneurysm L groin post procedure. 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 Last Myocardial Infarction Date:: October 2017 History of Any Multi-Drug Resistant Organisms: MRSA Date of last positivie culture/infection: 11/05/17 (Culture done at [facility]) MDRO Source:: legs Past Surgical History: AICD, Appendectomy, Cholecystectomy, Heart Catheterization With Stent, Hernia Repair Additional Past Surgical History / Comment(s): Pt has had multiple cardiac procedures- caths/stents/PTCA, last stent placed at [facility] -October2017, SAVANNAH, R inguinal hernia repair, umbilical hernia repair, right orchiectomy due to necrosis, right hand surgery r/t injury, colonoscopy, cystoscopy (scraped bladder parrish), stents 10/2017, Past Anesthesia/Blood Transfusion Reactions: No Reported Reaction Additional Past Anesthesia/Blood Transfusion Reaction / Comment(s): . Date of Last Stent Placement:: 10/2017 Type of Cardiac Device: Biventricular Pacemaker, AICD Device Placement Date:: 09/19/15 Past Psychological History: Anxiety, Depression, PTSD Smoking Status: Never smoker Past Alcohol Use History: None Reported Past Drug Use History: None Reported - Past Family History Mother Family Medical History: Coronary Artery Disease (CAD), Myocardial Infarction (SD) Additional Family Medical History / Comment(s): 7 SD and faulty heart valve. Pt does not know the age when mother had her SD's. Father History Unknown: Yes Additional Family Medical History / Comment(s): Does not know who father is. Brother(s) Family Medical History: Cancer, Congestive Heart Failure (CHF), Myocardial Infarction (SD) Additional Family Medical History / Comment(s): Parkinsons. Pt does not know at what age his brother had an SD. Patient's other brother has lung CA Patient has Family Medical History: No Reported History Additional Family Medical History / Comment(s): There is a strong family history for heart disease, hypertension, and diabetes. Medications and Allergies Home Medications Medication Instructions Recorded Confirmed Type Clopidogrel [Plavix] 75 mg PO QAM 12/03/17 12/10/18 History Albuterol Inhaler [Ventolin Hfa 2 puff INHALATION RT-Q6H PRN 04/01/18 12/10/18 History Inhaler] Pantoprazole [Protonix] 40 mg PO DAILY 04/01/18 12/10/18 History Primidone [Mysoline] 100 mg PO BID 04/01/18 12/10/18 History DULoxetine HCL [Cymbalta] 60 mg PO BID capsule. 05/10/18 12/10/18 Rx Aspirin EC [Ecotrin Low Dose] 81 mg PO DAILY 07/20/18 12/10/18 History Ranolazine [Ranexa] 500 mg PO BID 11/06/18 12/10/18 History Insulin Aspart [NovoLOG Flexpen] 16 units SQ AC-TID 11/08/18 12/10/18 History Metoprolol Tartrate [Lopressor] 50 mg PO BID 11/08/18 12/10/18 History Nitroglycerin Sl Tabs [Nitrostat] 0.4 mg SUBLINGUAL Q5M PRN 11/08/18 12/10/18 History Tamsulosin HCl [Flomax] 0.4 mg PO DAILY 11/08/18 12/10/18 History Furosemide [Lasix] 20 mg PO DAILY 11/28/18 12/10/18 History Isosorbide Dinitrate 10 mg PO TID 11/28/18 12/10/18 History Insulin Glargine [Lantus] 35 units SQ HS 12/10/18 12/10/18 History Morphine Sulfate 7.5 mg PO DAILY PRN 12/10/18 12/10/18 History Rosuvastatin Calcium [Crestor] 40 mg PO DAILY 12/10/18 12/10/18 History Allergies Allergy/AdvReac Type Severity Reaction Status Date / Time erythromycin base Allergy Severe Rash/Hives Verified 12/10/18 18:11 [Erythromycin Base] cephalexin monohydrate Allergy Unknown Rash/Hives Verified 12/10/18 18:11 [From Keflex] codeine Allergy Unknown Unknown Verified 12/10/18 18:11 meclizine Allergy Unknown Unknown Verified 12/10/18 18:11 Penicillins Allergy Unknown Rash/Hives Verified 12/10/18 18:11 shellfish derived Allergy Unknown Anaphylaxis Verified 12/10/18 18:11 Fish Containing Products Allergy Anaphylaxis Verified 12/10/18 18:11 [Fish] Iodinated Contrast- Oral and Allergy Anaphylaxis Verified 12/10/18 18:11 IV Dye naproxen AdvReac Unknown Compromises Verified 12/10/18 18:11 Kidney Function atorvastatin calcium AdvReac Myalgia Verified 12/10/18 18:11 [From Lipitor] hydrocodone [From Gerton] AdvReac Rapid Verified 12/11/18 00:07 Heart Rate Physical Exam Vitals: Vital Signs Temp Pulse Pulse Pulse Resp BP BP 12/11/18 07:21 12/11/18 06:45 88/56 12/11/18 05:55 77 100/55 12/11/18 05:45 98/55 12/11/18 04:00 97.6 F 98 15 119/86 12/10/18 23:33 98.0 F 92 14 143/86 12/10/18 22:12 92 16 125/89 12/10/18 17:40 98.6 F 110 H 19 121/73 Pulse Ox 12/11/18 07:21 95 12/11/18 06:45 12/11/18 05:55 12/11/18 05:45 12/11/18 04:00 98 12/10/18 23:33 97 12/10/18 22:12 100 12/10/18 17:40 98 Intake and Output 12/10/18 12/11/18 12/11/18 22:59 06:59 14:59 Other: Voiding Method Toilet # Voids 1 Weight 115.3 kg Results 12/11/18 06:53 12/11/18 06:53 Cardiac Enzymes 12/10/18 12/10/18 12/11/18 Range/Units 18:34 18:34 00:39 AST 21 (17-59) U/L Troponin I 0.020 0.027 (0.000-0.034) ng/mL Coagulation 12/10/18 Range/Units 18:34 PT 11.7 (9.0-12.0) sec APTT 23.6 (22.0-30.0) sec CBC 12/10/18 12/11/18 Range/Units 18:34 06:53 WBC 6.3 5.8 (3.8-10.6) k/uL RBC 3.85 L 4.56 (4.30-5.90) m/uL Hgb 10.0 L 11.5 L (13.0-17.5) gm/dL Hct 31.5 L 39.5 (39.0-53.0) % Plt Count 251 240 (150-450) k/uL Comprehensive Metabolic Panel 12/10/18 12/11/18 Range/Units 18:34 06:53 Sodium 136 L 136 L (137-145) mmol/L Potassium 4.4 5.1 (3.5-5.1) mmol/L Chloride 103 104 (98-107) mmol/L Carbon Dioxide 25 20 L (22-30) mmol/L BUN 24 H 26 H (9-20) mg/dL Creatinine 1.08 1.37 H (0.66-1.25) mg/dL Glucose 140 H 188 H (74-99) mg/dL Calcium 8.5 9.1 (8.4-10.2) mg/dL AST 21 (17-59) U/L ALT 19 L (21-72) U/L Alkaline Phosphatase 134 H (38-126) U/L Total Protein 5.5 L (6.3-8.2) g/dL Albumin 3.1 L (3.5-5.0) g/dL Current Medications Generic Name Dose Route Start Last Admin Trade Name Freq PRN Reason Stop Dose Admin Albuterol Sulfate 2.5 mg 12/10/18 22:23 Ventolin Nebulized INHALATION RT-Q6H PRN Shortness Of Breath Aspirin 81 mg 12/11/18 09:00 Aspirin PO DAILY [facility] Clopidogrel Bisulfate 75 mg 12/11/18 09:00 Plavix PO QAM [facility] Insulin Aspart 16 unit 07/20/19 07:30 Novolog SQ AC-TID [facility] Insulin Detemir 50 unit 12/11/18 00:15 12/11/18 02:02 Levemir SQ 50 unit HS JAKE Administration Morphine Sulfate 7.5 mg 12/11/18 01:14 12/11/18 02:00 Msir PO 7.5 mg DAILY PRN Administration Pain Naloxone HCl 0.2 mg 12/10/18 22:13 Narcan IV Q2M PRN Opioid Reversal Pantoprazole Sodium 40 mg 12/11/18 07:30 Protonix PO DAILY@0730 [facility] Ranolazine 500 mg 12/11/18 09:00 Ranexa PO BID [facility] Intake and Output 12/10/18 12/11/18 12/11/18 22:59 06:59 14:59 Other: Voiding Method Toilet # Voids 1 Weight 115.3 kg 12/11/18 06:53 12/11/18 06:53
[2018-12-11] MEDS ORDERED: HYDROmorphone 2 MG/ML 1 ML SYRINGE IVP PRN (16:17)
[2018-12-11 17:52] LABS: Glucose,Whole Blood 113 mg/dL (75-99)
--- NOTE | 2018-12-11 18:18 | ECHOF ---
Referral Reason:pericardial eff MEASUREMENTS -------- HEIGHT: 167.6 cm WEIGHT: 108.9 kg BP: RVIDd: 2.8 cm (< 3.3) IVSd: 1.2 cm (0.6 - 1.1) LVIDd: 4.7 cm (3.9 - 5.3) LVPWd: 0.9 cm (0.6 - 1.1) IVSs: 1.3 cm LVIDs: 4.6 cm LVPWs: 0.8 cm RAP: 5.00 mmHg RVSP: 36.89 mmHg FINDINGS -------- Sinus rhythm. This was a technically difficult study with suboptimal views. Limited Study The left ventricular size is normal. Left ventricular wall thickness is normal. There is severe g lobal hypokinesis of LV . Overall left ventricular systolic function is severely impaired with, an EF < 20%. Lumason used Moderate to severe tricuspid regurgitation present. There is mild pulmonary hypertension. The rig ht ventricular systolic pressure, as measured by Doppler, is 36.89mmHg. CONCLUSIONS -------- 1. Sinus rhythm. 2. This was a technically difficult study with suboptimal views. 3. Limited Study 4. Overall left ventricular systolic function is severely impaired with, an EF < 20%. 5. Lumason used 6. Moderate to severe tricuspid regurgitation present. 7. There is mild pulmonary hypertension. 8. The right ventricular systolic pressure, as measured by Doppler, is 36.89mmHg. PAPER HANGER: Ceci Wilson RDCS
[2018-12-11 21:01] LABS: Glucose,Whole Blood 88 mg/dL (75-99)
[2018-12-12 05:57] LABS: Anisocytosis Slight; Basophils % (A) 1 %; Eosinophils # (A) 0.1 k/uL (0-0.7); Eosinophils % (A) 2 %; HCT 34.9 % (39.0-53.0); HGB 11.1 gm/dL (13.0-17.5); Hypochromasia Marked; Lymphocytes % (A) 17 %; MCH 25.6 pg (25.0-35.0); MCHC 31.7 g/dL (31.0-37.0); Monocytes # (A) 0.4 k/uL (0-1.0); Monocytes % (A) 7 %; Neutrophils # (A) 4.2 k/uL (1.3-7.7); Neutrophils % (A) 72 %; Platelet Count 191 k/uL (150-450); Poikilocytosis Slight; RBC 4.32 m/uL (4.30-5.90); RDW 16.6 % (11.5-15.5); WBC 5.9 k/uL (3.8-10.6)
[2018-12-12 06:00] LABS: MCV 80.9 fL (80.0-100.0)
[2018-12-12 06:34] LABS: African American GFR (CKD) >90 (>60 ml/min/1.73 sqM); Anion Gap 9 mmol/L; Blood Urea Nitrogen 28 mg/dL (9-20); Calcium 8.7 mg/dL (8.4-10.2); Carbon Dioxide 23 mmol/L (22-30); Chloride 106 mmol/L (98-107); Glucose 51 mg/dL (74-99); Potassium 4.6 mmol/L (3.5-5.1); Sodium 138 mmol/L (137-145)
[2018-12-12 06:43] LABS: Glucose,Whole Blood 53 mg/dL (75-99)
[2018-12-12] MEDS: INSULIN ASPART (NovoLOG) 100 UNIT/ML VIAL SQ SCH ×5 (06:49→22:52)
[2018-12-12 07:05] LABS: Glucose,Whole Blood 53 mg/dL (75-99)
[2018-12-12] MEDS ORDERED: DEXTROSE 10 % IN WATER 250 ML BAG IV STA (07:30)
[2018-12-12 07:31] LABS: Glucose,Whole Blood 64 mg/dL (75-99)
[2018-12-12 08:03] LABS: Glucose,Whole Blood 125 mg/dL (75-99)
[2018-12-12] MEDS ORDERED: DEXTROSE 50% SYRINGE 50 ML IVP PRN (09:21)
--- NOTE | 2018-12-12 09:24 | P.PN ---
Subjective Patient is a 48-year-old male with a known history of asthma,Coronary Artery Disease (CAD) with history of stent placement less than a year ago, car diomyopathy ejection fraction less than 20 % Chest Pain / Angina, Heart Failure, CVA/TIA, Diabetes Mellitus insulin-dependent, Deep Vein Thrombosis (DVT), GERD/Reflux, Hyperlipidemia, Hypertension, Myocardial Infarction (OK), Osteoarthritis (OA), Pneumonia, Skin Disorder, Sleep Apnea/CPAP/BIPAP and other multiple medical problems came to ER with complaints of shortness of breath and not feeling well. Patient is known to our service as he was admitted last week for syncope with orthostatic hypotension, about time his interrogation of his ICD showing no cardiac arrhythmia. At that time he needed short course of the pressors in the ICU due to his low blood pressure. Eventually blood pressure was stable yet He was transferred to [facility] for right-sided numbness of the face and extremities, while there was no neurologist in house at this hospital. As per patient nothing much has been done for him at [facility] and his been discharged with same treatment. He states that his numbness in his right side are gone now. He presents this time with dyspnea and chest pain. He was in his recliner washing TV yesterday when he felt central chest pain, about 10/10 in severity, compared to 5/10 currently. 4:00 sharp and radiating to the left arm and hand. Associated with some dyspnea. Patient also has been complaining of from generalized weakness over the last 2 days that he has been using a walker. Patient on admission was febrile, however this morning he was hypotensive 88/56, with heart rate 77, oxygen saturation 95% on room air. A small bolus of fluid is a provided. CBC showing only mild anemia with hemoglobin at 11.5, while WBC and platelets are within normal limits. Sodium is 136, creatinine close to baseline at 1.37, glucose is 142-188. Troponin is 0.023 and 0.027, INR is 1.1. Chest x-ray showing right pleural effusion right lower lobe infiltrate and atel ectasis. 12/12/2018 Patient remains in the ICU a selective overflow. His chest pain and dyspnea are improving. No change in urine or bowel habits. He still limited week however he has decreased appetite and his sugar was in the 50s this morning, was treated with oral juice and therapy and came up to 125. Originally patient was taken 35 units longer acting insulin +8 units with meals, on admission yesterday was reported to 25 units. We going to look Levemir and keep the patient on a slidin g scale, discussed with the staff regarding this. Patient blood pressure looks more stable this morning at 109/76, his blood pressure medication are still in hold included Lasix, Lopressor, Imdur and Ranexa. Cardiology and pulmonary input is appreciated. Creatinine this morning back to normal at 1.0 review of systems CONSTITUTIONAL: No fever, no malaise, no fatigue. HEENT: No recent visual problems or hearing problems. Denied any sore throat. CARDIOVASCULAR: No orthopnea, PND, no palpitations, no syncope. PULMONARY: No shortness of breath, no cough, no hemoptysis. GASTROINTESTINAL: No diarrhea, no nausea, no vomiting, no abdominal pain. Normoactive bowel sounds. NEUROLOGICAL: No headaches, no weakness, no numbness. HEMATOLOGICAL: Denies any bleeding or petechiae. GENITOURINARY: Denies any burning micturition, frequency, or urgency. MUSCULOSKELETAL/RHEUMATOLOGICAL: Denies any joint pain, swelling, or any muscle pain. ENDOCRINE: Denies any polyuria or polydipsia. Active Medications Generic Name Dose Route Start Last Admin Trade Name Freq PRN Reason Stop Dose Admin Albuterol Sulfate 2.5 mg 12/10/18 22:23 Ventolin Nebulized INHALATION RT-Q6H PRN Shortness Of Breath Aspirin 81 mg 12/11/18 09:00 12/11/18 08:35 Aspirin PO 81 mg DAILY JAKE Administration Clopidogrel Bisulfate 75 mg 12/11/18 09:00 12/11/18 08:35 Plavix PO 75 mg QAM JAKE Administration Dextrose/Water 50 ml 12/12/18 09:21 Dextrose 50% Syringe IVP Q4HR PRN Blood Sugar - Low Duloxetine HCl 60 mg 12/11/18 09:00 12/11/18 20:39 Cymbalta PO 60 mg BID JAKE Administration Insulin Aspart 16 unit 12/11/18 07:30 12/12/18 06:49 Novolog SQ Not Given AC-TID JAKE Morphine Sulfate 7.5 mg 12/11/18 08:07 Msir PO DAILY PRN Pain Naloxone HCl 0.2 mg 12/10/18 22:13 Narcan IV Q2M PRN Opioid Reversal Nitroglycerin 0.4 mg 12/11/18 08:07 Nitrostat SUBLINGUAL Q5M PRN Chest Pain Rosuvastatin Calcium 40 mg 12/11/18 09:00 12/11/18 08:47 [Crestor] PO Not Given DAILY JAKE Pantoprazole Sodium 40 mg 12/11/18 07:30 12/11/18 08:36 Protonix PO 40 mg DAILY@0730 JAKE Administration Primidone 100 mg 12/11/18 09:00 12/11/18 20:39 Mysoline PO 100 mg BID JAKE Administration Ranolazine 500 mg 12/11/18 09:00 12/11/18 22:31 Ranexa PO 500 mg BID JAKE Administration Tamsulosin HCl 0.4 mg 12/11/18 09:00 12/11/18 08:35 Flomax PO 0.4 mg DAILY JAKE Administration Objective - Vital Signs Vital signs: Vital Signs Temp 97.6 F 12/12/18 04:00 Pulse 78 12/12/18 04:00 Resp 18 12/12/18 04:00 BP 109/76 12/12/18 04:00 Pulse Ox 96 12/12/18 04:00 Intake & Output 12/11/18 12/12/18 12/12/18 18:59 06:59 18:59 Output Total 400 Balance -400 Output: Urine 400 Other: Voiding Method Toilet Urinal # Voids 1 0 - Exam GENERAL: The patient is alert and oriented x3, not in any acute distress. Obese Generally weak HEENT: Pupils are round and equally reacting to light. EOMI. No scleral icterus. No conjunctival pallor. Normocephalic, atraumatic. No pharyngeal erythema. No thyromegaly. CARDIOVASCULAR: S1 and S2 present. No murmurs, rubs, or gallops. PULMONARY: Chest is clear to auscultation, no wheezing or crackles. ABDOMEN: Soft, nontender, nondistended, normoactive bowel sounds. No palpable organomegaly. MUSCULOSKELETAL: No joint swelling or deformity. -EXTREMITIES: No cyanosis, clubbing. Bilateral 1+ pitting leg edema NEUROLOGICAL: Gross neurological examination did not reveal any focal deficits. SKIN: No rashes. - Labs CBC & Chem 7: 12/12/18 05:36 12/12/18 05:36 Labs: Abnormal Lab Results - Last 24 Hours (Table) 12/11/18 12/11/18 12/11/18 Range/Units 10:41 11:56 17:50 Hgb (13.0-17.5) gm/dL Hct (39.0-53.0) % RDW (11.5-15.5) % BUN (9-20) mg/dL Glucose (74-99) mg/dL POC Glucose (mg/dL) 156 H 127 H 113 H (75-99) mg/dL 12/12/18 12/12/18 12/12/18 Range/Units 05:36 05:36 06:41 Hgb 11.1 L (13.0-17.5) gm/dL Hct 34.9 L (39.0-53.0) % RDW 16.6 H (11.5-15.5) % BUN 28 H (9-20) mg/dL Glucose 51 L (74-99) mg/dL POC Glucose (mg/dL) 53 L (75-99) mg/dL 12/12/18 12/12/18 12/12/18 Range/Units 07:03 07:29 08:01 Hgb (13.0-17.5) gm/dL Hct (39.0-53.0) % RDW (11.5-15.5) % BUN (9-20) mg/dL Glucose (74-99) mg/dL POC Glucose (mg/dL) 53 L 64 L 125 H (75-99) mg/dL Assessment and Plan Assessment: Chest pain and dyspnea, improving Acute on chronic kidney disease stage III. Creatinine 1.37 on admission. clark creatinine 0.9-1.0 . Improved Hypotension, improving Right pleural effusion Right lower rib cage pain and tenderness, related to CPR as per patient Recent history of Right-sided numbness of the face, and and lower extremity. CAT scan of the head is negative. Recent history of syncopal episode likely due to orthostatic hypotension. No arrhythmias noted in the AICD interrogation. Dizziness is Improving clinically. Recent history of cardiac arrest status post CPR about 2 weeks , patient was treated at her report chronic CHF with systolic dysfunction. Ejection fraction less than 20%, i schemic cardiomyopathy. Status post biventricular pacer, AICD placement Hyperglycemia with uncontrolled diabetes type 2. A1c 13.6 in July 2018, and 11.0 on 11/2018 Multi-Vessel coronary artery disease with recent stent placement at outside hospital facility.. Maximal medical therapy was recommended. Diabetic peripheral neuropathy of bilateral hand and feet Hypertensive heart disease obstructive sleep apnea not on CPAP at home Chronic gastritis Degenerative disc disease Chronic back pain History of Anxiety/depression and PTSD, with history of suicide attempts History of gastroparesis History of Psoriasis History of migraine headaches History of TIA Hiatal hernia Right rotator cuff tear history History of CVA in 2018 with TPA administration History of alcohol abuse History of marijuana use Plan: This is a pleasant 42 years old male who presents with chest pain and exertional dyspnea in view of his ischemic cardiomyopathy. cardiology consult. Monitor vitals closely. After stabilization we'll ask for physical therapy evaluation. Doppler of the lower extremity is negative for DVT.ultrasound of the chest showing pleural effusion. pulmonary evaluation . Hold Lasix for now and other blood pressure medication. Hold insulin Levemir and continue with insulin sliding scale. Labs and medication were reviewed.. Continue same treatment. Continue with symptomatic treatment. Resume home medication. Monitor lytes and vitals. DVT and GI prophylaxis. Further recommendations of the clinical course of the patient DVT prophylaxis: Subcutaneous heparin GI Prophylaxis: Pepcid PT/OT: Pending Prognosis is guarded
--- NOTE | 2018-12-12 09:30 | P.PN ---
Subjective Progress Note Date: 12/12/18 This is a 42-year-old gentleman with history of diffuse coronary artery disease with previous cardiomyopathy and congestive heart failure who was readmitted with complaints of chest pain and hypotension. His cardiac enzymes have been negative. His blood pressure is stable. He denies any chest pain or shortness of breath. Lungs are clear. Heart is regular. Overall, patient seems to be stable. From Cardec standpoint. His activity can be increased and be discharged home when medically clear Objective - Vital Signs Vital signs: Vital Signs Temp 97.6 F 12/12/18 04:00 Pulse 78 12/12/18 04:00 Resp 18 12/12/18 04:00 BP 109/76 12/12/18 04:00 Pulse Ox 96 12/12/18 04:00 Intake & Output 12/11/18 12/12/18 12/12/18 18:59 06:59 18:59 Output Total 400 Balance -400 Output: Urine 400 Other: Voiding Method Toilet Urinal # Voids 1 0 - Exam GENERAL EXAM: Patient is alert and oriented and doesn't appear to be in any acute distress HEENT: Normocephalic. Normal reaction of pupils, equal size, normal range of extraocular motion. No erythema or exudates in the throat. NECK: No masses, no nuchal rigidity. CHEST: No chest wall deformity. LUNGS: Equal air entry with no crackles or wheeze., Diminished breath sounds at bases HEART: S1 and S2 normal with no audible mumurs or gallops. Regular rhythm, femorals equal on both sides.. ABDOMEN: No hepatosplenomegaly, normal bowel sounds, no guarding or rigidity. SKIN: No rashes CENTRAL NERVOUS SYSTEM: No focal deficits. EXTREMITIES: No cyanosis, clubbing or edema. - Labs CBC & Chem 7: 12/12/18 05:36 12/12/18 05:36 Labs: Abnormal Lab Results - Last 24 Hours (Table) 12/11/18 12/11/18 12/11/18 Range/Units 10:41 11:56 17:50 Hgb (13.0-17.5) gm/dL Hct (39.0-53.0) % RDW (11.5-15.5) % BUN (9-20) mg/dL Glucose (74-99) mg/dL POC Glucose (mg/dL) 156 H 127 H 113 H (75-99) mg/dL 12/12/18 12/12/18 12/12/18 Range/Units 05:36 05:36 06:41 Hgb 11.1 L (13.0-17.5) gm/dL Hct 34.9 L (39.0-53.0) % RDW 16.6 H (11.5-15.5) % BUN 28 H (9-20) mg/dL Glucose 51 L (74-99) mg/dL POC Glucose (mg/dL) 53 L (75-99) mg/dL 12/12/18 12/12/18 12/12/18 Range/Units 07:03 07:29 08:01 Hgb (13.0-17.5) gm/dL Hct (39.0-53.0) % RDW (11.5-15.5) % BUN (9-20) mg/dL Glucose (74-99) mg/dL POC Glucose (mg/dL) 53 L 64 L 125 H (75-99) mg/dL Assessment and Plan (1) Chronic systolic (congestive) heart failure Current Visit: Yes Status: Acute Code(s): I50.22 - CHRONIC SYSTOLIC (CONGESTIVE) HEART FAILURE SNOMED Code(s): 307088896 (2) Chest pain Current Visit: Yes Status: Acute Code(s): R07.9 - CHEST PAIN, UNSPECIFIED SNOMED Code(s): 20446626 (3) AICD (automatic cardioverter/defibrillator) present Current Visit: No Status: Acute Code(s): Z95.810 - PRESENCE OF AUTOMATIC (IMPLANTABLE) CARDIAC DEFIBRILLATOR SNOMED Code(s): 695479986 (4) Hypotension Current Visit: Yes Status: Acute Code(s): I95.9 - HYPOTENSION, UNSPECIFIED SNOMED Code(s): 60015688 Plan: Patient is much more stable today. Denies any chest pain or shortness of breath. No arrhythmias. Blood pressures improved. From cardiac standpoint. Patient will be discharged home. Follow-up in the office
[2018-12-12] MEDS ORDERED: DEXTROSE 10 % IN WATER 250 ML IV PRN (09:45)
[2018-12-12] MEDS: CLOPIDOGREL 75 MG TAB PO SCH (09:59)
[2018-12-12] MEDS: PRIMIDONE 50 MG TAB PO SCH ×2 (09:59→20:47)
[2018-12-12] MEDS: PANTOPRAZOLE 40 MG TABLET PO SCH (09:59)
[2018-12-12] MEDS: DULoxetine HCL 60 MG CAPSULE.DR PO SCH ×2 (09:59→20:47)
[2018-12-12] MEDS: ASPIRIN 81 MG PO SCH (09:59)
[2018-12-12] MEDS: TAMSULOSIN 0.4 MG CAP.ER.24H PO SCH (10:00)
[2018-12-12] MEDS: RANOLAZINE 500 MG TAB.ER.12H PO SCH ×2 (10:00→20:47)
--- NOTE | 2018-12-12 10:35 | PN ---
PROGRESS NOTE DATE OF SERVICE: December 12, 2018 This is a 42-year-old gentleman who was seen in OBS unit yesterday. He was admitted to the unit as a 3 South overflow. He came in primarily chest pain, which was not thought by Cardiology to be acute ischemia. He does have an extensive cardiac history and does have a history of congestive heart failure, ischemic cardiomyopathy, significant CAD and multiple stent placements. He also has a history of mild asthma. He was admitted here primarily because down in the OBS unit he was noted to be hypotensive. Here, he has been more normotensive. He is not receiving any supplemental oxygen or IV. He is a 3 South overflow patient. The patient also has a history of diabetes, obesity, DVT, GERD, angina, CVA, hypertension, myocardial infarction, DJD, psoriasis, sleep apnea syndrome, and hypotension, which is thought to be related to his severe ischemic cardiomyopathy. Since he has been here, he has not required any pressor agents or anything to maintain blood pressure. Clinically, he is doing well. Denies any chest pain, chest discomfort or difficulty breathing. He has had a pretty uneventful night. PHYSICAL EXAMINATION: VITAL SIGNS: Temperature 97.6. Heart rate 78, respiratory rate 18, blood pressure 109/76, mean 87, saturations are 96% on room air. GENERAL: Appears in no acute distress. HEENT examination is grossly unremarkable. Membranes are moist. No oral lesions. No supplemental oxygen noted. NECK: Neck is supple. Full range of motion. No adenopathy or thyromegaly. Neck veins are flat. CARDIOVASCULAR examination reveals distant heart sounds. S1, S2 normal. Heart rate 75 beats per minute. Soft, systolic murmur is noted. No S3, S4. Lungs reveal mostly clear breath sounds. A few scattered crackles. No wheezes or rhonchi. Breath sounds equal bilaterally. Abdomen is obese. Bowel sounds are heard. EXTREMITIES are intact. No cyanosis, clubbing. There is mild edema. SKIN: Without rash. NEUROLOGIC examination is brief but nonfocal. LABS: Reviewed. White count 5.9, hemoglobin 11.1, hematocrit 34.9, platelet count normal. Sodium, potassium, chloride, CO2 all normal. Anion gap is 9. BUN and creatinine were 28 and 1.09. Microbiologic studies are negative. A venous Doppler studies reveal no evidence for DVT in either leg. The chest x-ray shows a right-sided effusion which is stable and chronic in nature. Medications are reviewed. Everything seems appropriate. ASSESSMENT: 1. Chest pain, not thought to represent acute ischemia at this time according to Cardiology. 2. Hypotension, resolved, likely related to the patient's known history of ischemic cardiomyopathy. 3. History of extensive cardiac history including chronic congestive heart failure, ischemic cardiomyopathy, coronary artery disease, and multiple stent placements. 4. History of mild asthma, inactive at this time. 5. Diabetes mellitus. 6. Obesity. 7. History of deep vein thrombosis. 8. Gastroesophageal reflux disease. 9. Angina pectoris. 10.Cerebrovascular accident. 11.Hypertension. 12.Myocardial infarction by history. 13.Degenerative joint disease. 14.History of psoriasis. 15.History of sleep apnea syndrome. PLAN: The patient is doing reasonably well. He probably could be transferred out back to [address] [place] [address]. No additional recommendations are made. He has not required any pressor agents. He is not requiring any supplemental oxygen. He is not getting any IV. The patient has really stabilized quite nicely. His lower extremity edema is improved. He is not manifesting any signs or symptoms of acute ischemia. MMODL / IJN: [id number] /
[2018-12-12 11:50] LABS: Glucose,Whole Blood 171 mg/dL (75-99)
[2018-12-12 17:10] LABS: Glucose,Whole Blood 122 mg/dL (75-99)
[2018-12-12 21:02] LABS: Glucose,Whole Blood 151 mg/dL (75-99)
[2018-12-13 05:49] LABS: African American GFR (CKD) >90 (>60 ml/min/1.73 sqM); Anion Gap 10 mmol/L; Blood Urea Nitrogen 25 mg/dL (9-20); Calcium 8.5 mg/dL (8.4-10.2); Carbon Dioxide 21 mmol/L (22-30); Chloride 105 mmol/L (98-107); Glucose 151 mg/dL (74-99); Potassium 4.8 mmol/L (3.5-5.1); Sodium 136 mmol/L (137-145)
[2018-12-13 06:54] LABS: Glucose,Whole Blood 149 mg/dL (75-99)
[2018-12-13] MEDS: TAMSULOSIN 0.4 MG CAP.ER.24H PO SCH (09:27)
[2018-12-13] MEDS: PANTOPRAZOLE 40 MG TABLET PO SCH (09:27)
[2018-12-13] MEDS: PRIMIDONE 50 MG TAB PO SCH (09:28)
[2018-12-13] MEDS: RANOLAZINE 500 MG TAB.ER.12H PO SCH (09:28)
[2018-12-13] MEDS: INSULIN ASPART (NovoLOG) 100 UNIT/ML VIAL SQ SCH ×4 (09:28→13:31)
[2018-12-13] MEDS: DULoxetine HCL 60 MG CAPSULE.DR PO SCH (09:28)
[2018-12-13] MEDS: ASPIRIN 81 MG PO SCH (09:28)
[2018-12-13] MEDS: CLOPIDOGREL 75 MG TAB PO SCH (09:28)
--- NOTE | 2018-12-13 10:26 | P.PN ---
Subjective Progress Note Date: 12/13/18 Principal diagnosis: Atypical chest pain, hypotension On 12/13/2018 patient seen in follow-up in the intensive care unit, he is resting comfortably in bed, in no acute distress, denies any chest pain, denies any shortness of breath, he is on room air, with a pulse ox of 94%, afebrile, hemodynamically stable, respirations are even and nonlabored, patient is a paced rhythm on the monitor, and if 85 bpm. Blood pressure is stable, patient is not on any vasoactive drips, IV was hep-locked. Today's labs have been reviewed, showing sodium of 136, potassium is 4.8, chloride is 105, CO2 is 21, B1 of 25, creatinine is 0.97. Echocardiogram results have been noted, overall left ventricular systolic function is severely impaired with EF of less than 20%, with severe global hypokinesis of LV, moderate to severe tricuspid regurgitation, mild pulmonary hypertension with right-sided pressures of 36.8 mmHg. No acute events overnight, no specific complaints, patient has been augustine ared for discharge home from a cardiac standpoint, he is clear from pulmonary perspective as well. Objective - Vital Signs Vital signs: Vital Signs Temp 98.2 F 12/13/18 08:00 Pulse 89 12/13/18 08:00 Resp 8 L 12/13/18 08:00 BP 108/59 12/13/18 08:00 Pulse Ox 94 L 12/13/18 08:00 Intake & Output 12/12/18 12/13/18 12/13/18 18:59 06:59 18:59 Output Total 1000 1025 Balance -1000 -1025 Weight 115.4 kg Output: Urine 1000 1025 Other: Voiding Method Urinal Urinal Urinal # Voids 3 - Exam GENERAL EXAM: Alert, pleasant, 42-year-old white male, on room air comfortable in no apparent distress. HEAD: Normocephalic/atraumatic. EYES: Normal reaction of pupils, equal size. Conjunctiva pink, sclera white. NOSE: Clear with pink turbinates. THROAT: No erythema or exudates. NECK: No masses, no JVD, no thyroid enlargement, no adenopathy. CHEST: No chest wall deformity. Symmetrical expansion. LUNGS: Equal air entry with no crackles, wheeze, rhonchi or dullness. CVS: Regular rate and rhythm, normal S1 and S2, no gallops, no murmurs, no rubs ABDOMEN: Soft, nontender. No hepatosplenomegaly, normal bowel sounds, no guarding or rigidity. EXTREMITIES: No clubbing, no edema, no cyanosis, 2+ pulses and upper and lower extremities. MUSCULOSKELETAL: Muscle strength and tone normal. SPINE: No scoliosis or deformity SKIN: No rashes CENTRAL NERVOUS SYSTEM: Alert and oriented -3. No focal deficits, tone is normal in all 4 extremities. PSYCHIATRIC: Alert and oriented -3. Appropriate affect. Intact judgment and insight. - Labs CBC & Chem 7: 12/12/18 05:36 12/13/18 05:20 Labs: Abnormal Lab Results - Last 24 Hours (Table) 12/12/18 12/12/18 12/12/18 Range/Units 11:48 16:58 21:00 Sodium (137-145) mmol/L Carbon Dioxide (22-30) mmol/L BUN (9-20) mg/dL Glucose (74-99) mg/dL POC Glucose (mg/dL) 171 H 122 H 151 H (75-99) mg/dL 12/13/18 12/13/18 Range/Units 05:20 06:53 Sodium 136 L (137-145) mmol/L Carbon Dioxide 21 L (22-30) mmol/L BUN 25 H (9-20) mg/dL Glucose 151 H (74-99) mg/dL POC Glucose (mg/dL) 149 H (75-99) mg/dL Assessment and Plan Plan: Assessment: #1. Atypical chest pain, could be related to recent history of CPR, not thought to be related to acute ischemia #2. Hypotension resolved, likely related to patient's known history of ischemic cardiomyopathy #3. History of extensive cardiac history including chronic congestive heart failure, ischemic cardiomyopathy, coronary artery disease and multiple stent placements #4. History of mild intermittent asthma, currently inactive #5. Diabetes mellitus #6. Obesity #7. History of deep venous thrombosis #8. GERD/reflux #9. Angina pectoris #10. Cerebrovascular accident, history of #11. Hypertension #12. History of myocardial infarction #13. Degenerative joint disease #14. History of psoriasis #15. Obstructive sleep apnea syndrome Plan: Continue current medical treatment, patient is doing well, hypotension has resolved, vital signs are stable, no complaints of chest pain, no complaint of shortness of breath. He is on room air, increase activity as tolerated, has been cleared for discharge by cardiology, he is cleared from pulmonary perspec tive as well. I performed a history & physical examination of the patient and discussed their management with my nurse practitioner, Beronica Núñez. I reviewed the nurse practitioner's note and agree with the documented findings and plan of care. Lung sounds are positive for clear lung sounds. The findings and the impression was discussed with the patient. I attest to the documentation by the nurse practitioner. Time with Patient: Less than 30
--- NOTE | 2018-12-13 10:37 | PN ---
PROGRESS NOTE Ti is a 42-year-old gentleman who was admitted to hospital with chest pain, ruled out for myocardial infarction, appears comfortable at rest and is stable for discharge. He was evaluated by my associate, Dr. Salazar, who advised him on continued medical therapy. He is currently on aspirin, Plavix, insulin, Ranexa, Crestor. PHYSICAL EXAMINATION: On exam, comfortable at rest. Vital signs are stable. Chest exam reveals good air entry bilaterally. Heart exam reveals first and second heart sounds. No gallop. Examination of extremities did not reveal any edema. Peripheral pulses are felt. [employer] exam did not reveal focal neurological deficits. LABS: Labs show that the potassium is 4.8, creatinine is 0.9. ASSESSMENT: Precordial chest pain, atypical, stable from cardiac standpoint. No further workup at this time. Stable for discharge. MMODL / IJN: [id number] /
[2018-12-13 11:57] LABS: Glucose,Whole Blood 241 mg/dL (75-99)
[2018-12-13 13:42] LABS: Hemoglobin A1C 9.8 % (4.0-6.0)
[2018-12-13 13:45] VITALS: BP 120/84; TEMP 97.5
[2018-12-13 14:29] VITALS: BMI 41.1
[2018-12-13 17:32] VITALS: PULSE 96; RESP 22
== END 2018-12-13 18:09 | disposition home or self-care (01) | DRG 313 ==
LOC: EC 17:38 → 1SOBS 22:14 → OBSVTOIN 12-11 10:07 → 2SICU 12-11 10:32
PROVIDERS: ADMIT Internal Medicine; ATTEND Internal Medicine
DX: R07.89 Other chest pain (principal); I13.0 Hypertensive heart and chronic kidney disease with heart failure and stage 1 through stage 4 chronic kidney disease, or unspecified chronic kidney disease; I50.22 Chronic systolic (congestive) heart failure; J98.11 Atelectasis; N17.9 Acute kidney failure, unspecified; Z68.41 Body mass index [BMI] 40.0-44.9, adult; I25.119 Atherosclerotic heart disease of native coronary artery with unspecified angina pectoris; I27.20 Pulmonary hypertension, unspecified; I95.9 Hypotension, unspecified; E11.22 Type 2 diabetes mellitus with diabetic chronic kidney disease; E11.42 Type 2 diabetes mellitus with diabetic polyneuropathy; E11.43 Type 2 diabetes mellitus with diabetic autonomic (poly)neuropathy; E66.01 Morbid (severe) obesity due to excess calories; I08.1 Rheumatic disorders of both mitral and tricuspid valves; K31.84 Gastroparesis; N18.3 Chronic kidney disease, stage 3 (moderate); E78.5 Hyperlipidemia, unspecified; F32.9 Major depressive disorder, single episode, unspecified; F43.10 Post-traumatic stress disorder, unspecified; F41.9 Anxiety disorder, unspecified; K27.9 Peptic ulcer, site unspecified, unspecified as acute or chronic, without hemorrhage or perforation; G47.33 Obstructive sleep apnea (adult) (pediatric); G89.29 Other chronic pain; I25.2 Old myocardial infarction; I25.5 Ischemic cardiomyopathy; J45.20 Mild intermittent asthma, uncomplicated; K21.9 Gastro-esophageal reflux disease without esophagitis; K29.50 Unspecified chronic gastritis without bleeding; M19.90 Unspecified osteoarthritis, unspecified site; G43.909 Migraine, unspecified, not intractable, without status migrainosus; L40.9 Psoriasis, unspecified; M54.9 Dorsalgia, unspecified; Z79.02 Long term (current) use of antithrombotics/antiplatelets; Z79.4 Long term (current) use of insulin; Z79.82 Long term (current) use of aspirin; Z79.899 Other long term (current) drug therapy; Z95.810 Presence of automatic (implantable) cardiac defibrillator; Z95.5 Presence of coronary angioplasty implant and graft; Z91.5 Personal history of self-harm; Z86.711 Personal history of pulmonary embolism; Z86.718 Personal history of other venous thrombosis and embolism; Z86.73 Personal history of transient ischemic attack (TIA), and cerebral infarction without residual deficits; Z86.74 Personal history of sudden cardiac arrest; Z87.01 Personal history of pneumonia (recurrent); Z87.440 Personal history of urinary (tract) infections; Z88.8 Allergy status to other drugs, medicaments and biological substances; Z88.6 Allergy status to analgesic agent; Z88.1 Allergy status to other antibiotic agents; Z91.041 Radiographic dye allergy status; Z88.5 Allergy status to narcotic agent; Z88.0 Allergy status to penicillin; Z91.013 Allergy to seafood; Z90.79 Acquired absence of other genital organ(s); Z90.49 Acquired absence of other specified parts of digestive tract; Z86.14 Personal history of Methicillin resistant Staphylococcus aureus infection; Z82.49 Family history of ischemic heart disease and other diseases of the circulatory system; Z83.3 Family history of diabetes mellitus; Z82.0 Family history of epilepsy and other diseases of the nervous system; Z80.1 Family history of malignant neoplasm of trachea, bronchus and lung
CPT/HCPCS: 36415; 71046; 76604; 80048; 80053; 80162; 83036; 83735; 83880; 84484; 85025; 85610; 85730; 93005; 93308; 93970; 96374; 96375; 96376; 99285

== ENCOUNTER 2018-12-22 02:11 | Observation (INO) | payer MEDICARE, OTHER ==
--- NOTE | 2018-12-22 03:21 | XR ---
EXAM: XR Chest, 2 Views CLINICAL HISTORY: ITS.REASON XR Reason: Pain TECHNIQUE: Frontal and lateral views of the chest. COMPARISON: Chest x-ray dated 11/28/18 and 12/01/18 FINDINGS: Lungs: Persistent right basilar lung opacity/scarring. Pleural space: Small residual right pleural effusion. No pneumothorax. Heart: Left-sided cardiac pacing device. Heart size appears enlarged but unchanged in size. Coronary stent also seen. Mediastinum: Unremarkable. Bones/joints: Unremarkable. IMPRESSION: 1. Small residual right pleural effusion. 2. Persistent right basilar lung opacity/scarring. This may represent a residual pneumonia or other infiltrate.
[2018-12-22] MEDS ORDERED: ONDANSETRON 4 MG/2 ML VIAL IVP STA (03:46)
[2018-12-22] MEDS ORDERED: MORPHINE SULFATE 4 MG/ML SYRINGE IV STA ×2 (03:46→06:03)
[2018-12-22 03:48] LABS: ALT 20 U/L (21-72); AST 30 U/L (17-59); African American GFR (CKD) >90 (>60 ml/min/1.73 sqM); Albumin 3.1 g/dL (3.5-5.0); Alkaline Phosphatase 142 U/L (38-126); Anion Gap 9 mmol/L; Blood Urea Nitrogen 15 mg/dL (9-20); Carbon Dioxide 20 mmol/L (22-30); Chloride 106 mmol/L (98-107); Glucose 161 mg/dL (74-99); Magnesium 1.8 mg/dL (1.6-2.3); Sodium 135 mmol/L (137-145); Total Bilirubin 0.7 mg/dL (0.2-1.3); Total Protein 5.8 g/dL (6.3-8.2)
[2018-12-22 03:57] LABS: Anisocytosis Slight; Basophils # (A) 0.1 k/uL (0-0.2); Basophils % (A) 1 %; Eosinophils # (A) 0.2 k/uL (0-0.7); Eosinophils % (A) 3 %; HCT 37.7 % (39.0-53.0); HGB 11.3 gm/dL (13.0-17.5); Hypochromasia Marked; Lymphocytes # (A) 1.2 k/uL (1.0-4.8); Lymphocytes % (A) 21 %; MCV 83.3 fL (80.0-100.0); Mean Platelet Volume 8.5; Monocytes # (A) 0.4 k/uL (0-1.0); Monocytes % (A) 7 %; Neutrophils # (A) 3.7 k/uL (1.3-7.7); Neutrophils % (A) 64 %; Platelet Count 293 k/uL (150-450); Poikilocytosis Moderate; RBC 4.53 m/uL (4.30-5.90); RDW 16.6 % (11.5-15.5); WBC 5.8 k/uL (3.8-10.6)
[2018-12-22 04:21] LABS: Potassium 4.7 mmol/L (3.5-5.1)
[2018-12-22] MEDS ORDERED: diphenhydrAMINE 50 MG CAP PO STA (06:04)
[2018-12-22] MEDS ORDERED: ONDANSETRON 4 MG/2 ML VIAL IVP PRN (06:05)
[2018-12-22] MEDS ORDERED: NALOXONE 0.4 MG/ML 1 ML VIAL IV PRN (06:05)
[2018-12-22] MEDS ORDERED: ALBUTEROL NEBULIZED 2.5 MG/3 ML INHALATION PRN (06:07)
[2018-12-22] MEDS ORDERED: MORPHINE SULFATE IR 15 MG TABLET PO PRN (06:07)
--- NOTE | 2018-12-22 06:17 | ED ---
General Adult HPI - General Chief complaint: Chest Pain Stated complaint: Chest Pain Time Seen by Provider: 12/22/18 02:16 Source: patient Mode of arrival: wheelchair Limitations: no limitations - History of Present Illness Initial comments: This patient's 42-year-old man with history of diabetes, coronary artery disease and cardiomyopathy, who presents with complaint of chest tightness and accompanying dyspnea. I states the pain came on this evening when he had gone out to eat. I states that he tried going home and resting as well as taking nitroglycerin. He states that the pain did not improve. Patient notes that he recently had a right-sided pleural effusion that was drained at [facility] in [place]. The patient states that the dyspnea and chest sensation feels similar to that and he is wondering if the fluid has reaccumulated. Patient states that this does not feel typical of his usual heart-related chest pain. Patient denies fever or chills, cough, leg pain or swelling. -: hour(s) Location: chest Radiation: non-radiation Quality: aching Consistency: constant Improves with: none Worsens with: none Associated Symptoms: shortness of breath Treatments Prior to Arrival: other (Nitroglycerin) - Related Data Home Medications Medication Instructions Recorded Confirmed Clopidogrel [Plavix] 75 mg PO QAM 12/03/17 12/10/18 Albuterol Inhaler [Ventolin Hfa 2 puff INHALATION RT-Q6H PRN 04/01/18 12/10/18 Inhaler] Pantoprazole [Protonix] 40 mg PO DAILY 04/01/18 12/10/18 Primidone [Mysoline] 100 mg PO BID 04/01/18 12/10/18 Aspirin EC [Ecotrin Low Dose] 81 mg PO DAILY 07/20/18 12/10/18 Ranolazine [Ranexa] 500 mg PO BID 11/06/18 12/10/18 Nitroglycerin Sl Tabs [Nitrostat] 0.4 mg SUBLINGUAL Q5M PRN 11/08/18 12/10/18 Tamsulosin HCl [Flomax] 0.4 mg PO DAILY 11/08/18 12/10/18 Morphine Sulfate 7.5 mg PO DAILY PRN 12/10/18 12/10/18 Rosuvastatin Calcium [Crestor] 40 mg PO DAILY 12/10/18 12/10/18 Previous Rx's Medication Instructions Recorded DULoxetine HCL [Cymbalta] 60 mg PO BID capsule. 05/10/18 INSULIN ASPART (NovoLOG) [NovoLOG 0 unit SQ ACHS vial 12/13/18 (formulary)] INSULIN ASPART (NovoLOG) [NovoLOG 16 unit SQ AC-TID vial 12/13/18 (formulary)] Insulin Glargine [Lantus] 10 units SQ HS #0 12/13/18 Allergies Allergy/AdvReac Type Severity Reaction Status Date / Time erythromycin base Allergy Severe Rash/Hives Verified 12/22/18 02:18 [Erythromycin Base] cephalexin monohydrate Allergy Unknown Rash/Hives Verified 12/22/18 02:18 [From Keflex] codeine Allergy Unknown Unknown Verified 12/22/18 02:18 meclizine Allergy Unknown Unknown Verified 12/22/18 02:18 Penicillins Allergy Unknown Rash/Hives Verified 12/22/18 02:18 shellfish derived Allergy Unknown Anaphylaxis Verified 12/22/18 02:18 Fish Containing Products Allergy Anaphylaxis Verified 12/22/18 02:18 [Fish] Iodinated Contrast- Oral and Allergy Anaphylaxis Verified 12/22/18 02:18 IV Dye naproxen AdvReac Unknown Compromises Verified 12/22/18 02:18 Kidney Function atorvastatin calcium AdvReac Myalgia Verified 12/22/18 02:18 [From Lipitor] hydrocodone [From [place]] AdvReac Rapid Verified 12/22/18 02:18 Heart Rate Review of Systems ROS Statement: Those systems with pertinent positive or pertinent negative responses have been documented in the HPI. ROS Other: All systems not noted in ROS Statement are negative. Constitutional: Denies: fever, chills Respiratory: Reports: as per HPI, dyspnea. Denies: cough, wheezes, hemoptysis Cardiovascular: Reports: as per HPI, chest pain, orthopnea. Denies: palpitations, edema, syncope Gastrointestinal: Denies: abdominal pain, nausea, vomiting, melena, hematochezia Genitourinary: Denies: dysuria, hematuria Musculoskeletal: Denies: back pain Skin: Denies: rash Neurological: Denies: headache Past Medical History Past Medical History: Asthma, Coronary Artery Disease (CAD), Chest Pain / Angina, Heart Failure, CVA/TIA, Diabetes Mellitus, Deep Vein Thrombosis (DVT), GERD/Reflux, Hyperlipidemia, Hypertension, Myocardial Infarction (GA), Osteoarthritis (OA), Pneumonia, Skin Disorder, Sleep Apnea/CPAP/BIPAP Additional Past Medical History / Comment(s): multiple vessel CAD, ischemic cardiomyopathy, diabetic neuropathy bilateral hands and feet, hypertensive cardiovascular disease, SHELIA with no device, chronic gastritis, degenerative disc disease, chronic back pain, depression with hx of suicide attempts, gastroparesis, psoriasis, UTI, migraines, TIA, PUD, hiatal hernia, L rotator cuff tear, bronchitis, pseudoaneurysm L groin post procedure. 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 Last Myocardial Infarction Date:: October 2017 History of Any Multi-Drug Resistant Organisms: MRSA Date of last positivie culture/infection: 11/05/17 (Culture done at [facility]) MDRO Source:: legs Past Surgical History: AICD, Appendectomy, Cholecystectomy, Heart Catheterization With Stent, Hernia Repair Additional Past Surgical History / Comment(s): Pt has had multiple cardiac procedures- caths/stents/PTCA, last stent placed at [facility] -October2017, SAVANNAH, R inguinal hernia repair, umbilical hernia repair, 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 Date of Last Stent Placement:: 10/2017 Type of Cardiac Device: Biventricular Pacemaker, AICD Device Placement Date:: 09/19/15 Past Psychological History: Anxiety, Depression, PTSD Smoking Status: Never smoker Past Alcohol Use History: None Reported Past Drug Use History: None Reported - Past Family History Mother Family Medical History: Coronary Artery Disease (CAD), Myocardial Infarction (GA) Additional Family Medical History / Comment(s): 7 GA and faulty heart valve. Pt does not know the age when mother had her GA's. Father History Unknown: Yes Additional Family Medical History / Comment(s): Does not know who father is. Brother(s) Family Medical History: Cancer, Congestive Heart Failure (CHF), Myocardial Infarction (GA) Additional Family Medical History / Comment(s): Parkinsons. Pt does not know at what age his brother had an GA. Patient's other brother has lung CA Patient has Family Medical History: No Reported History Additional Family Medical History / Comment(s): There is a strong family history for heart disease, hypertension, and diabetes. General Exam Limitations: no limitations General appearance: alert, in no apparent distress Head exam: Present: atraumatic, normocephalic Eye exam: Present: normal appearance. Absent: scleral icterus, conjunctival injection ENT exam: Present: normal oropharynx Neck exam: Present: normal inspection Respiratory exam: Present: rales (Bilateral bases). Absent: respiratory distress, wheezes, rhonchi, stridor Cardiovascular Exam: Present: normal rhythm, tachycardia, normal heart sounds. Absent: systolic murmur, diastolic murmur, rubs, gallop GI/Abdominal exam: Present: soft. Absent: distended, tenderness, guarding, rebound, rigid, mass Extremities exam: Present: normal inspection, normal capillary refill. Absent: pedal edema, calf tenderness Back exam: Present: normal inspection. Absent: CVA tenderness (R), CVA tenderness (L) Neurological exam: Present: alert Skin exam: Present: warm, dry, intact, normal color. Absent: rash Course Vital Signs 12/22/18 12/22/18 12/22/18 02:16 04:05 05:30 Temperature 98.0 F Pulse Rate 120 H 115 H 123 H Respiratory 18 20 18 Rate Blood Pressure 127/83 139/92 142/94 O2 Sat by Pulse 96 97 96 Oximetry EKG Findings - EKG Comments: EKG Findings:: A paced rhythm rate approximately 116 bpm - EKG Results: EKG: interpreted by DEWAYNE Medical Decision Making - Lab Data Result diagrams: 12/22/18 03:40 12/22/18 02:30 Lab Results 12/22/18 12/22/18 12/22/18 Range/Units 02:30 02:30 03:40 WBC 5.8 (3.8-10.6) k/uL RBC 4.53 (4.30-5.90) m/uL Hgb 11.3 L (13.0-17.5) gm/dL Hct 37.7 L (39.0-53.0) % MCV 83.3 (80.0-100.0) fL MCH 25.0 (25.0-35.0) pg MCHC 30.0 L (31.0-37.0) g/dL RDW 16.6 H (11.5-15.5) % Plt Count 293 (150-450) k/uL Neutrophils % 64 % Lymphocytes % 21 % Monocytes % 7 % Eosinophils % 3 % Basophils % 1 % Neutrophils # 3.7 (1.3-7.7) k/uL Lymphocytes # 1.2 (1.0-4.8) k/uL Monocytes # 0.4 (0-1.0) k/uL Eosinophils # 0.2 (0-0.7) k/uL Basophils # 0.1 (0-0.2) k/uL Hypochromasia Marked Poikilocytosis Moderate Anisocytosis Slight Sodium 135 L (137-145) mmol/L Potassium 4.7 (3.5-5.1) mmol/L Chloride 106 (98-107) mmol/L Carbon Dioxide 20 L (22-30) mmol/L Anion Gap 9 mmol/L BUN 15 (9-20) mg/dL Creatinine 0.90 (0.66-1.25) mg/dL Est GFR (CKD-EPI)AfAm >90 (>60 ml/min/1.73 sqM) Est GFR (CKD-EPI)NonAf >90 (>60 ml/min/1.73 sqM) Glucose 161 H (74-99) mg/dL Calcium 9.0 (8.4-10.2) mg/dL Magnesium 1.8 (1.6-2.3) mg/dL Total Bilirubin 0.7 (0.2-1.3) mg/dL AST 30 (17-59) U/L ALT 20 L (21-72) U/L Alkaline Phosphatase 142 H (38-126) U/L Troponin I 0.031 (0.000-0.034) ng/mL NT-Pro-B Natriuret Pep pg/mL Total Protein 5.8 L (6.3-8.2) g/dL Albumin 3.1 L (3.5-5.0) g/dL 12/22/18 Range/Units 03:40 WBC (3.8-10.6) k/uL RBC (4.30-5.90) m/uL Hgb (13.0-17.5) gm/dL Hct (39.0-53.0) % MCV (80.0-100.0) fL MCH (25.0-35.0) pg MCHC (31.0-37.0) g/dL RDW (11.5-15.5) % Plt Count (150-450) k/uL Neutrophils % % Lymphocytes % % Monocytes % % Eosinophils % % Basophils % % Neutrophils # (1.3-7.7) k/uL Lymphocytes # (1.0-4.8) k/uL Monocytes # (0-1.0) k/uL Eosinophils # (0-0.7) k/uL Basophils # (0-0.2) k/uL Hypochromasia Poikilocytosis Anisocytosis Sodium (137-145) mmol/L Potassium (3.5-5.1) mmol/L Chloride (98-107) mmol/L Carbon Dioxide (22-30) mmol/L Anion Gap mmol/L BUN (9-20) mg/dL Creatinine (0.66-1.25) mg/dL Est GFR (CKD-EPI)AfAm (>60 ml/min/1.73 sqM) Est GFR (CKD-EPI)NonAf (>60 ml/min/1.73 sqM) Glucose (74-99) mg/dL Calcium (8.4-10.2) mg/dL Magnesium (1.6-2.3) mg/dL Total Bilirubin (0.2-1.3) mg/dL AST (17-59) U/L ALT (21-72) U/L Alkaline Phosphatase (38-126) U/L Troponin I (0.000-0.034) ng/mL NT-Pro-B Natriuret Pep 5200 pg/mL Total Protein (6.3-8.2) g/dL Albumin (3.5-5.0) g/dL Disposition Clinical Impression: Dyspnea, Pleural effusion, Chest pain Disposition: ADMITTED IP TO THIS HOSP Condition: Fair Referrals: Junie New MD [Primary Care Provider] - 1-2 days
[2018-12-22] MEDS: DULoxetine HCL 60 MG CAPSULE.DR PO SCH ×2 (08:08→20:47)
[2018-12-22] MEDS: CLOPIDOGREL 75 MG TAB PO SCH (08:08)
[2018-12-22] MEDS: TAMSULOSIN 0.4 MG CAP.ER.24H PO SCH (08:08)
[2018-12-22] MEDS: ASPIRIN 81 MG PO SCH (08:08)
[2018-12-22] MEDS: RANOLAZINE 500 MG TAB.ER.12H PO SCH ×2 (08:08→20:40)
[2018-12-22] MEDS: PANTOPRAZOLE 40 MG TABLET PO SCH (08:08)
[2018-12-22] MEDS: PRIMIDONE 50 MG TAB PO SCH ×2 (08:09→20:46)
--- NOTE | 2018-12-22 08:53 | US ---
EXAMINATION TYPE: US chest DATE OF EXAM: 12/22/2018 COMPARISON: 12/11/2018 CLINICAL HISTORY: pleural effusion. Pleural effusion TECHNIQUE: Targeted ultrasound of the posterior lower bilateral hemithoraces EXAM MEASUREMENTS: Right Pleural Effusion pocket size: 10.5 cm Right skin surface to fluid distance: 4.1 cm Left Pleural Effusion pocket size: 0 cm Right side MARKED for possible thoracentesis outside the dept. Left side NOT MARKED for possible thoracentesis outside the dept. Pulmonologists are able to review the images in the patient?s EMR. IMPRESSIONS: Small right-sided pleural effusion, marked for thoracentesis. No left pleural effusion.
[2018-12-22] MEDS: INSULIN ASPART (NovoLOG) 100 UNIT/ML VIAL SQ SCH ×3 (09:13→17:17)
[2018-12-22] MEDS: SODIUM CHLORIDE 0.9% 1,000 ML IV SCH (09:37)
[2018-12-22] MEDS: FUROSEMIDE 10 MG/ML 4 ML VIAL IV SCH ×3 (09:38→23:44)
[2018-12-22] MEDS ORDERED: diphenhydrAMINE 50 MG/ML 1 ML VIAL IVP STA (10:27)
[2018-12-22] MEDS: METOPROLOL TARTRATE 12.5 MG TAB PO SCH ×2 (10:52→20:50)
[2018-12-22] MEDS ORDERED: PERMETHRIN 5% CREAM 60 GM TUBE TOPICAL ONE (11:00)
[2018-12-22 11:50] LABS: Glucose,Whole Blood 214 mg/dL (75-99)
[2018-12-22] MEDS: NITROGLYCERIN SL TABS 0.4 MG TAB SUBLINGUAL PRN ×6 (12:46→20:45)
[2018-12-22 12:49] LABS: Glucose,Whole Blood 171 mg/dL (75-99)
--- NOTE | 2018-12-22 15:19 | P.CNPUL ---
History of Present Illness Consult date: 12/22/18 Requesting physician: Safia Clay Reason for consult: pleural effusion Chief complaint: Right-sided pleural effusion, recurrent History of present illness: This 42-year-old white male patient with a recent history of cardiac arrest several weeks ago, that required CPR and resuscitation and subsequently patient was treated at [facility], and he received 2 coronary stents there. We have recently seen the patient in consultation on 12/11/2018, when the patient came into the hospital for atypical chest pain which was thought to be related to recent history of CPR, some hypotension which was thought to be related to history of ischemic cardiomyopathy. Patient chest x-ray at that time did show a right pleural effusion, which was not significantly changed from prior chest x- ray on December 01, patient was treated medically, and was discharged home on 12/13/2018. Patient presents to the emergency department on 12/22/2018 for complaints of shortness of breath and chest tightness. Apparently patient had right-sided centesis done 2 days ago at [facility] in [place], it is unknown how much fluid was taken off and with the results of the pleural fluid analysis showed. Patient stated that his dyspnea and chest sensation were similar to the ones that he had when he went to [facility] with increased right pleural effusion and he is wondering if the fluid has re accumulated. He states that his chest pain was not typical of his heart related chest pain. Denied any fever or chills, no cough, no leg pain or swelling. The pain is aching, and nonradiating and constant in nature. Chest x-ray showed a small residual right pleural effusion, and persistent right basilar lung opacity/scarring. Ultrasound of the chest was completed, and showed a right pleural effusion pocket of 10.5 cm, and no left pleural effusion. Patient is on room air, his pulse ox is 92-98%, he is afebrile, EKG showed paced rhythm, at times tachycardic with a rate of 110's BPM. Lab work was reviewed, showing white blood cell count of 5.8, hemoglobin of 11.3, platelet count of 293, serum sodium of 135, potassium is 4.7, chloride is 106, CO2 is 20, BUN is 15, creatinine 0.90. ProBNP was elevated at 5002 100, troponin was 0.031, and 0.036. he is fairly comfortable, he is in no acute distress. He is on dual antiplatelet therapy with baby aspirin and Plavix, was started IV diuretics. No plans for thoracentesis right now, patient has a severely impaired left surgical systolic function with an EF of less than 20% on echocardiogram from 12/11/2018, his renal function is normal, it is not clear why the patient was not sent home on any maintenance diuretics following his hospitalization and [facility], because upon discharge from [facility] on 12/13/2018 patient was sent home on the daily dose of Lasix 20 mg daily, which he is not currently taking Review of Systems All systems: negative Constitutional: Denies chills, Denies fever Eyes: denies blurred vision, denies pain Ears, nose, mouth and throat: Denies headache, Denies sore throat Cardiovascular: Reports chest pain, Denies shortness of breath Respiratory: Denies cough Gastrointestinal: Denies abdominal pain, Denies diarrhea, Denies nausea, Denies vomiting Musculoskeletal: Denies myalgias Integumentary: Denies pruritus, Denies rash Neurological: Denies numbness, Denies weakness Psychiatric: Denies anxiety, Denies depression Endocrine: Denies fatigue, Denies weight change Past Medical History Past Medical History: Asthma, Coronary Artery Disease (CAD), Chest Pain / Angina, Heart Failure, CVA/TIA, Diabetes Mellitus, Deep Vein Thrombosis (DVT), GERD/Reflux, Hyperlipidemia, Hypertension, Myocardial Infarction (MN), Osteoarth ritis (OA), Pneumonia, Skin Disorder, Sleep Apnea/CPAP/BIPAP Additional Past Medical History / Comment(s): multiple vessel CAD, ischemic cardiomyopathy, diabetic neuropathy bilateral hands and feet, hypertensive cardiovascular disease, SHELIA with no device, chronic gastritis, degenerative disc disease, chronic back pain, depression with hx of suicide attempts, gastroparesis, psoriasis, UTI, migraines, TIA, PUD, hiatal hernia, L rotator cuff tear, bronchitis, pseudoaneurysm L groin post procedure. 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 Date of Last Stent Placement:: 10/2018 Type of Cardiac Device: Biventricular Pacemaker, AICD Device Placement Date:: 09/19/15 Past Psychological History: Anxiety, Depression, PTSD Additional Psychological History / Comment(s): Several suicide attempts with use of insulin. PTSD - in 2000 his 3mo old son in his arms (born 2 months premature). He has a walker at home if needed. He drives.pt has 2 adult stepchildren at home with him most of the time. Spouse manages his medications. Smoking Status: Never smoker Past Alcohol Use History: None Reported Additional Past Alcohol Use History / Comment(s): Past alcohol abuse - pt states he quit drinking over 8yrs ago. Past Drug Use History: None Reported Additional Drug Use History / Comment(s): Pt has smoked marijuana in the past - last smoked in 1999. - Past Family History Mother Family Medical History: Coronary Artery Disease (CAD), Myocardial Infarction (M I) Additional Family Medical History / Comment(s): 7 MN and faulty heart valve. Pt does not know the age when mother had her MN's. Father History Unknown: Yes Additional Family Medical History / Comment(s): Does not know who father is. Brother(s) Family Medical History: Cancer, Congestive Heart Failure (CHF), Myocardial Infarction (MN) Additional Family Medical History / Comment(s): Parkinsons. Pt does not know at what age his brother had an MN. Patient's other brother has lung CA Patient has Family Medical History: No Reported History Additional Family Medical History / Comment(s): There is a strong family history for heart disease, hypertension, and diabetes. Medications and Allergies Home Medications Medication Instructions Recorded Confirmed Type Clopidogrel [Plavix] 75 mg PO QAM 12/03/17 12/22/18 History Albuterol Inhaler [Ventolin Hfa 2 puff INHALATION RT-Q6H PRN 04/01/18 12/22/18 History Inhaler] Pantoprazole [Protonix] 40 mg PO DAILY 04/01/18 12/22/18 History Primidone [Mysoline] 100 mg PO BID 04/01/18 12/22/18 History DULoxetine HCL [Cymbalta] 60 mg PO BID capsule. 05/10/18 12/22/18 Rx Aspirin EC [Ecotrin Low Dose] 81 mg PO DAILY 07/20/18 12/22/18 History Ranolazine [Ranexa] 500 mg PO BID 11/06/18 12/22/18 History Nitroglycerin Sl Tabs [Nitrostat] 0.4 mg SUBLINGUAL Q5M PRN 11/08/18 12/22/18 History Tamsulosin HCl [Flomax] 0.4 mg PO DAILY 11/08/18 12/22/18 History Morphine Sulfate 7.5 mg PO DAILY PRN 12/10/18 12/22/18 History Rosuvastatin Calcium [Crestor] 40 mg PO DAILY 12/10/18 12/22/18 History INSULIN ASPART (NovoLOG) [NovoLOG 16 unit SQ AC-TID vial 12/13/18 12/22/18 Rx (formulary)] Insulin Glargine [Lantus] 10 units SQ HS #0 12/13/18 12/22/18 Rx INSULIN ASPART (NovoLOG) [NovoLOG See Protocol SQ ACHS 12/22/18 12/22/18 History (formulary)] Allergies Allergy/AdvReac Type Severity Reaction Status Date / Time erythromycin base Allergy Severe Rash/Hives Verified 12/22/18 06:47 [Erythromycin Base] cephalexin monohydrate Allergy Unknown Rash/Hives Verified 12/22/18 06:47 [From Keflex] codeine Allergy Unknown Unknown Verified 12/22/18 06:47 meclizine Allergy Unknown Unknown Verified 12/22/18 06:47 Penicillins Allergy Unknown Rash/Hives Verified 12/22/18 06:47 shellfish derived Allergy Unknown Anaphylaxis Verified 12/22/18 06:47 Fish Containing Products Allergy Anaphylaxis Verified 12/22/18 06:47 [Fish] Iodinated Contrast- Oral and Allergy Anaphylaxis Verified 12/22/18 06:47 IV Dye naproxen AdvReac Unknown Compromises Verified 12/22/18 06:47 Kidney Function atorvastatin calcium AdvReac Myalgia Verified 12/22/18 06:47 [From Lipitor] hydrocodone [From Deputy] AdvReac Rapid Verified 12/22/18 06:47 Heart Rate Physical Exam Vitals: Vital Signs Temp Pulse Pulse Resp BP BP Pulse Ox 12/22/18 13:50 98.0 F 94 108/78 98 12/22/18 12:44 100 105/67 12/22/18 07:00 97.5 F L 120 H 18 122/86 92 L 12/22/18 06:30 87 18 130/95 96 12/22/18 05:30 123 H 18 142/94 96 12/22/18 04:05 115 H 20 139/92 97 12/22/18 02:16 98.0 F 120 H 18 127/83 96 Intake and Output 12/21/18 12/22/18 12/22/18 22:59 06:59 14:59 Intake Total 240 Output Total 900 Balance -660 Intake: Oral 240 Output: Urine 900 Other: # Voids 4 Weight 107.955 kg GENERAL EXAM: Alert, obese, 42-year-old white male comfortable in no apparent distress. HEAD: Normocephalic/atraumatic. EYES: Normal reaction of pupils, equal size. Conjunctiva pink, sclera white. NOSE: Clear with pink turbinates. THROAT: No erythema or exudates. NECK: No masses, no JVD, no thyroid enlargement, no adenopathy. CHEST: No chest wall deformity. Symmetrical expansion. LUNGS: Equal air entry with diminished breath sounds and basilar crackles, but no wheeze, rhonchi or dullness. CVS: Regular rate and rhythm, normal S1 and S2, no gallops, no murmurs, no rubs ABDOMEN: Soft, nontender. No hepatosplenomegaly, normal bowel sounds, no guarding or rigidity. EXTREMITIES: No clubbing, no edema, no cyanosis, 2+ pulses and upper and lower extremities. MUSCULOSKELETAL: Muscle strength and tone normal. SPINE: No scoliosis or deformity SKIN: No rashes CENTRAL NERVOUS SYSTEM: Alert and oriented -3. No focal deficits, tone is norm al in all 4 extremities. PSYCHIATRIC: Alert and oriented -3. Appropriate affect. Intact judgment and insight. Results - Laboratory Findings CBC and BMP: 12/22/18 03:40 12/22/18 02:30 Abnormal lab findings: Abnormal Labs 12/22/18 12/22/18 12/22/18 02:30 03:40 11:47 Hgb 11.3 L Hct 37.7 L MCHC 30.0 L RDW 16.6 H Sodium 135 L Carbon Dioxide 20 L Glucose 161 H POC Glucose (mg/dL) 214 H ALT 20 L Alkaline Phosphatase 142 H Troponin I Total Protein 5.8 L Albumin 3.1 L 12/22/18 12/22/18 12:48 13:34 Hgb Hct MCHC RDW Sodium Carbon Dioxide Glucose POC Glucose (mg/dL) 171 H ALT Alkaline Phosphatase Troponin I 0.036 H* Total Protein Albumin - Diagnostic Findings Chest x-ray: report reviewed, image reviewed Additional studies: Chest ultrasound reviewed, EKG reviewed Assessment and Plan Plan: Assessment: #1. Recurrent right-sided pleural effusion, status post right-sided thoracentesis at [facility] 2 days ago #2. Acute exacerbation of systolic congestive heart failure #3. Severe cardiomyopathy, with most recent echocardiogram on 12/11/2018 showing EF of less than 20%, status post AICD placement #4. Recent history of cardiac arrest requiring CPR and resuscitation several weeks ago #5. Coronary artery disease status post coronary artery stenting #6. Recent history of myocardial infarction #7. Hypertension #8. Depression #9. History of CVA #10. Diabetes mellitus #11. Morbid obesity #12. History of mild intermittent bronchial asthma, currently inactive Plan: Start IV Lasix of 40 mg every 8 hours, chest x-ray and ultrasound of the chest has been reviewed by Dr. Monk, patient was seen and evaluated by Dr. Monk, he had that recent right-sided thoracentesis at [facility] 2 days ago, however patient was not discharged on any Lasix, although he had previously been on maintenance dose of Lasix. Currently is fairly comfortable, in no acute distress. No plans for thoracentesis at this time, patient has a severely impaired systolic function, and pleural effusion on the right side is likely to recur unless patient is on maintenance diuretics. Continue with medical treatment at this time, repeat chest x-ray tomorrow, acurate I and O's, daily weights, daily electrolytes and renal profile I performed a history & physical examination of the patient and discussed their management with my nurse practitioner, Beronica Núñez. I reviewed the nurse practitioner's note and agree with the documented findings and plan of care. Lung sounds are positive for diminished breath sounds. The findings and the impression was discussed with the patient. I attest to the documentation by the nurse practitioner. Time with Patient: Greater than 30
[2018-12-22 16:38] LABS: Glucose,Whole Blood 129 mg/dL (75-99)
--- NOTE | 2018-12-22 18:19 | P.HPIM ---
History of Present Illness H&P Date: 12/22/18 Chief Complaint: Shortness of breath and chest pain Ti Miranda a 42 y.o.male with a past medical history of coronary artery disease, NSTEMI, CAD with multiple stents, ischemic cardiomyopathy with EF 15- 20% with AICD placement, diabetes mellitus, asthma, obstructive sleep apnea, TIA, pulmonary embolism, gastroparesis, hypertension, hyperlipidemia, depression, obesity who came into the emergency room with the complaints of shortness of breath and chest pain. Patient had a recent cardiac catheterization on 11/30/2018 at [facility] and has had PTCA, drug-eluting stent of mid circumflex artery. Patient was admitted to the [facility] on 12/14/2018 with complaints of shortness of breath and chest x-ray showed right-sided large pleural effusion. Patient was seen by pulmonary at the time and were not able to perform thoracentesis due to patient being on aspirin Plavix. Patient was eventually transferred to [facility] where he had thoracentesis done with 1.4 L fluid removal. Patient was sent home and since then patient is having worsening short of breath. Yesterday patient developed midsternal chest pain along with shortness of breath which made him come to ER for further evaluation. Patient otherwise denied any complaints of cough is from production. No fever no chills. No nausea vomiting or abdominal pain. Patient has minimal lower extremity edema. Denied dizziness or palpitation. Troponin 0.036 Chest x-ray showed small residual right pleural effusion. Persistent right basilar lung opacity or scarring. This may represent a residual pneumonia or infiltrates.. WBC 5.8 BNP 5200 patient is saturating well on 2 L nausea cannula oxygen. Review of Systems Constitutional: Patient denies any fever or chills . No generalized weakness or weight loss. Abdomen: Patient denied nausea vomiting and diarrhea and abdominal pain. Cardiovascular: Patient is complaining of chest pain and shortness of breath. No palpitations. No worsening leg swelling.. Respiratory: patient denied any cough is from production. Does have shortness of breath Neurologic: Patient denied any numbness or tingling headache. Musculoskeletal: Patient denies any complaints of joint swelling or deformity. Skin: Negative Psychiatric: Negative Endocrine: No heat or cold intolerance. No recent weight gain. Genitourinary: No dysuria or hematuria. All other 14 point ROS negative except the above Past Medical History Past Medical History: Asthma, Coronary Artery Disease (CAD), Chest Pain / Angina, Heart Failure, CVA/TIA, Diabetes Mellitus, Deep Vein Thrombosis (DVT), GERD/Reflux, Hyperlipidemia, Hypertension, Myocardial Infarction (GA), Osteoarthritis (OA), Pneumonia, Skin Disorder, Sleep Apnea/CPAP/BIPAP Additional Past Medical History / Comment(s): multiple vessel CAD, ischemic cardiomyopathy, diabetic neuropathy bilateral hands and feet, hypertensive cardiovascular disease, SHELIA with no device, chronic gastritis, degenerative disc disease, chronic back pain, depression with hx of suicide attempts, g astroparesis, psoriasis, UTI, migraines, TIA, PUD, hiatal hernia, L rotator cuff tear, bronchitis, pseudoaneurysm L groin post procedure. 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 Date of Last Stent Placement:: 10/2018 Type of Cardiac Device: Biventricular Pacemaker, AICD Device Placement Date:: 09/19/15 Past Psychological History: Anxiety, Depression, PTSD Additional Psychological History / Comment(s): Several suicide attempts with use of insulin. PTSD - in 2000 his 3mo old son in his arms (born 2 months premature). He has a walker at home if needed. He drives.pt has 2 adult stepchildren at home with him most of the time. Spouse manages his medications. Smoking Status: Never smoker Past Alcohol Use History: None Reported Additional Past Alcohol Use History / Comment(s): Past alcohol abuse - pt states he quit drinking over 8yrs ago. Past Drug Use History: None Reported Additional Drug Use History / Comment(s): Pt has smoked marijuana in the past - last smoked in 1999. - Past Family History Mother Family Medical History: Coronary Artery Disease (CAD), Myocardial Infarction (GA) Additional Family Medical History / Comment(s): 7 GA and faulty heart valve. Pt does not know the age when mother had her GA's. Father History Unknown: Yes Additional Family Medical History / Comment(s): Does not know who father is. Brother(s) Family Medical History: Cancer, Congestive Heart Failure (CHF), Myocardial Infarction (GA) Additional Family Medical History / Comment(s): Parkinsons. Pt does not know at what age his brother had an GA. Patient's other brother has lung CA Patient has Family Medical History: No Reported History Additional Family Medical History / Comment(s): There is a strong family history for heart disease, hypertension, and diabetes. Medications and Allergies Home Medications Medication Instructions Recorded Confirmed Type Clopidogrel [Plavix] 75 mg PO QAM 12/03/17 12/22/18 History Albuterol Inhaler [Ventolin Hfa 2 puff INHALATION RT-Q6H PRN 04/01/18 12/22/18 History Inhaler] Pantoprazole [Protonix] 40 mg PO DAILY 04/01/18 12/22/18 History Primidone [Mysoline] 100 mg PO BID 04/01/18 12/22/18 History DULoxetine HCL [Cymbalta] 60 mg PO BID capsule. 05/10/18 12/22/18 Rx Aspirin EC [Ecotrin Low Dose] 81 mg PO DAILY 07/20/18 12/22/18 History Ranolazine [Ranexa] 500 mg PO BID 11/06/18 12/22/18 History Nitroglycerin Sl Tabs [Nitrostat] 0.4 mg SUBLINGUAL Q5M PRN 11/08/18 12/22/18 History Tamsulosin HCl [Flomax] 0.4 mg PO DAILY 11/08/18 12/22/18 History Morphine Sulfate 7.5 mg PO DAILY PRN 12/10/18 12/22/18 History Rosuvastatin Calcium [Crestor] 40 mg PO DAILY 12/10/18 12/22/18 History INSULIN ASPART (NovoLOG) [NovoLOG 16 unit SQ AC-TID vial 12/13/18 12/22/18 Rx (formulary)] Insulin Glargine [Lantus] 10 units SQ HS #0 12/13/18 12/22/18 Rx INSULIN ASPART (NovoLOG) [NovoLOG See Protocol SQ ACHS 12/22/18 12/22/18 History (formulary)] Allergies Allergy/AdvReac Type Severity Reaction Status Date / Time erythromycin base Allergy Severe Rash/Hives Verified 12/22/18 06:47 [Erythromycin Base] cephalexin monohydrate Allergy Unknown Rash/Hives Verified 12/22/18 06:47 [From Keflex] codeine Allergy Unknown Unknown Verified 12/22/18 06:47 meclizine Allergy Unknown Unknown Verified 12/22/18 06:47 Penicillins Allergy Unknown Rash/Hives Verified 12/22/18 06:47 shellfish derived Allergy Unknown Anaphylaxis Verified 12/22/18 06:47 Fish Containing Products Allergy Anaphylaxis Verified 12/22/18 06:47 [Fish] Iodinated Contrast- Oral and Allergy Anaphylaxis Verified 12/22/18 06:47 IV Dye naproxen AdvReac Unknown Compromises Verified 12/22/18 06:47 Kidney Function atorvastatin calcium AdvReac Myalgia Verified 12/22/18 06:47 [From Lipitor] hydrocodone [From [place]] AdvReac Rapid Verified 12/22/18 06:47 Heart Rate Physical Exam Vitals: Vital Signs Temp Pulse Pulse Resp BP BP Pulse Ox 12/22/18 12:44 100 105/67 12/22/18 07:00 97.5 F L 120 H 18 122/86 92 L 12/22/18 06:30 87 18 130/95 96 12/22/18 05:30 123 H 18 142/94 96 12/22/18 04:05 115 H 20 139/92 97 12/22/18 02:16 98.0 F 120 H 18 127/83 96 Intake and Output 12/21/18 12/22/18 12/22/18 22:59 06:59 14:59 Output Total 900 Balance -900 Output: Urine 900 Other: # Voids 4 Weight 107.955 kg PHYSICAL EXAMINATION: Patient is lying in the bed comfortably, no acute distress, awake alert and oriented.. HEENT: Normocephalic. Neck is supple. Pupils reactive. Nostrils clear. Oral cavity is moist. Ears reveal no drainage. Neck reveals no JVD, carotid bruits, or thyromegaly. CHEST EXAMINATION: Trachea is central. Symmetrical expansion. Right basilar crackles. Diminished breath sounds. Lung hendrix clear to auscultation and percussion. CARDIAC: Normal S1, S2 with no gallops. No murmurs ABDOMEN: Soft. Bowel sounds normal. No organomegaly. No abdominal bruits. Extremities: Bilateral trace edema. No clubbing or cyanosis Neurologically awake, alert, oriented x3 with well-coordinated movements. No focal deficits noted Skin: No rash or skin lesions. Psychiatric: Coperative. Nonsuicidal Musculoskeletal: No joint swelling or deformity. Normal range of motion. Results CBC & Chem 7: 12/22/18 03:40 12/22/18 02:30 Labs: Abnormal Lab Results - Last 24 Hours (Table) 12/22/18 12/22/18 12/22/18 Range/Units 02:30 03:40 11:47 Hgb 11.3 L (13.0-17.5) gm/dL Hct 37.7 L (39.0-53.0) % MCHC 30.0 L (31.0-37.0) g/dL RDW 16.6 H (11.5-15.5) % Sodium 135 L (137-145) mmol/L Carbon Dioxide 20 L (22-30) mmol/L Glucose 161 H (74-99) mg/dL POC Glucose (mg/dL) 214 H (75-99) mg/dL ALT 20 L (21-72) U/L Alkaline Phosphatase 142 H (38-126) U/L Total Protein 5.8 L (6.3-8.2) g/dL Albumin 3.1 L (3.5-5.0) g/dL 12/22/18 Range/Units 12:48 Hgb (13.0-17.5) gm/dL Hct (39.0-53.0) % MCHC (31.0-37.0) g/dL RDW (11.5-15.5) % Sodium (137-145) mmol/L Carbon Dioxide (22-30) mmol/L Glucose (74-99) mg/dL POC Glucose (mg/dL) 171 H (75-99) mg/dL ALT (21-72) U/L Alkaline Phosphatase (38-126) U/L Total Protein (6.3-8.2) g/dL Albumin (3.5-5.0) g/dL Thrombosis Risk Factor Assmnt - DVT/VTE Prophylaxis DVT/VTE Prophylaxis: Pharmacologic Prophylaxis ordered - Choose All That Apply Any of the Below Risk Factors Present?: Yes Each Factor Represents 1 point: Age 41-60 years, Obesity (BMI >25), Swollen legs (current) Other Risk Factors: Yes Each Risk Factor Represents 3 Points: History of DVT/PE Other congenital or acquired thrombophilia - If yes, enter type in comment: No Thrombosis Risk Factor Assessment Total Risk Factor Score: 6 Thrombosis Risk Factor Assessment Level: High Risk Assessment and Plan Assessment: Shortness of breath secondary to recurrent right-sided pleural effusion. Status post right-sided thoracentesis 2 days ago at [facility]. Intermittent chest pain. Troponin is chronically elevated. Follow-up repeat troponin. Continue with maximal medical therapy. Acute on Chronic CHF with systolic dysfunction, EF 15-20% ischemic cardiomyopathy s/p AICD implantation chronic kidney disease stage III History of coronary artery disease with multiple stent placements. Most recent on 11/30/2018 Hypertension Obstructive sleep apnea, uses CPAP Depression History of suicide attempt Persistent asthma History of CVA no residual deficit Type 2 diabetes mellitus. Insulin-dependent. Morbid obesity with a BMI 38.4 Mild intermittent asthma stable. DVT prophylaxis with heparin subcu. Plan: Patient will be continued on IV Lasix 40 mg every 8 hourly as blood pressure tolerates. Continue with metoprolol. Continue the aspirin and Plavix. Insulin dosing and CBG monitoring closely. Pulmonary was consulted for possible thoracentesis. Currently patient is fairly comfortable and no acute distress. No plans thoracentesis at this Time.. Continue to monitor closely. serial EKGs and troponins. Continue with medical management. Further recommendations based on the clinical course. Pain management. Prognosis is guarded with multiple medical problems and comorbid conditions. Time with Patient: Greater than 30
[2018-12-22 20:19] LABS: Glucose,Whole Blood 170 mg/dL (75-99)
[2018-12-22] MEDS ORDERED: INSULIN DETEMIR (LEVEMIR) 100 UNIT/ML SYR SQ SCH (21:00)
[2018-12-22] MEDS ORDERED: MORPHINE SULFATE 2 MG/ML SYRINGE IVP STA (21:03)
[2018-12-22] MEDS: HEPARIN SODIUM,PORCINE 5,000 UNIT/ML 1 ML VIAL SQ SCH (23:44)
[2018-12-23 00:09] VITALS: RESP 18
[2018-12-23] MEDS: SODIUM CHLORIDE 0.9% 1,000 ML IV SCH (05:48)
[2018-12-23 06:53] LABS: Glucose,Whole Blood 154 mg/dL (75-99)
--- NOTE | 2018-12-23 07:19 | XR ---
EXAMINATION TYPE: XR chest 2V DATE OF EXAM: 12/23/2018 COMPARISON: 12/22/2018 HISTORY: Follow-up for pleural effusion TECHNIQUE: Frontal and lateral views of the chest are obtained. FINDINGS: Right minor fissural fluid is seen with linear right midlung atelectasis. Eventration of t he right hemidiaphragm is again noted with trace right pleural effusion. Right hemidiaphragm is chron ically elevated, possibly secondary to some atelectasis. Left lung remains well aerated. Multilead le ft-sided cardiac device is again seen with cardiac extends visualized. Cardiomediastinal silhouette i s enlarged. No acute osseous pathology. IMPRESSION: Similar right hemidiaphragm elevation, right basilar airspace disease, and trace right p leural effusion in comparison to the prior of 12/22/2018.
[2018-12-23] MEDS ORDERED: HYDROmorphone 0.5 MG/0.5 ML SYRINGE IVP STA (07:27)
[2018-12-23 07:50] VITALS: TEMP 97.6
[2018-12-23 08:10] LABS: African American GFR (CKD) >90 (>60 ml/min/1.73 sqM); Anion Gap 11 mmol/L; Blood Urea Nitrogen 21 mg/dL (9-20); Calcium 8.7 mg/dL (8.4-10.2); Carbon Dioxide 25 mmol/L (22-30); Chloride 99 mmol/L (98-107); Glucose 155 mg/dL (74-99); Potassium 4.5 mmol/L (3.5-5.1); Sodium 135 mmol/L (137-145)
[2018-12-23] MEDS: METOPROLOL TARTRATE 12.5 MG TAB PO SCH (09:02)
[2018-12-23] MEDS: CLOPIDOGREL 75 MG TAB PO SCH (09:02)
[2018-12-23] MEDS: PANTOPRAZOLE 40 MG TABLET PO SCH (09:02)
[2018-12-23] MEDS: ASPIRIN 81 MG PO SCH (09:02)
[2018-12-23] MEDS: RANOLAZINE 500 MG TAB.ER.12H PO SCH (09:02)
[2018-12-23] MEDS: PRIMIDONE 50 MG TAB PO SCH (09:03)
[2018-12-23] MEDS: HEPARIN SODIUM,PORCINE 5,000 UNIT/ML 1 ML VIAL SQ SCH (09:03)
[2018-12-23] MEDS: FUROSEMIDE 10 MG/ML 4 ML VIAL IV SCH (09:03)
[2018-12-23] MEDS: DULoxetine HCL 60 MG CAPSULE.DR PO SCH (09:03)
[2018-12-23] MEDS: TAMSULOSIN 0.4 MG CAP.ER.24H PO SCH (09:03)
[2018-12-23] MEDS: INSULIN ASPART (NovoLOG) 100 UNIT/ML VIAL SQ SCH ×2 (09:03→12:38)
--- NOTE | 2018-12-23 10:33 | P.CRDCN ---
History of Present Illness History of present illness: This is a 42-year-old past medical history significant for coronary artery disease status post multivessel PCI, PEA cardiac arrest, ischemic cardiomyopathy status post AICD placement, dyslipidemia, myocardial infarction, hypertension, depression, CVA, diabetes mellitus and history of DVT and PE in the past. He came to the hospital symptoms of chest discomfort. He states he was just discharged from [facility] 2 days ago after undergoing a right sided thoracentesis. He states since being discharged home he has felt a pain in the right flank region close to where they drained fluid. He also has a pain in the mid-sternal region that seems worse with movement of this torso or deep breathing. He has been seen by pulmonary service and they have opted to use diuresis rather than thoracentesis. Repeat chest xray today reveals only trace right effusion. He is requesting dialudid for chronic pain. He is seen and examined sitting up in bed in no acute distress. EKG sinus mechanism ventricular paced, no acute ST or T wave abnormalities noted. Chest x-ray on admission reveals residual small right pleural effusion, persistent right basilar lung scarring. Repeat today reveals ongoing right basilar disease and trace right pleural effusion. Ultrasound of the chest revealed a right-sided pleural effusion with a pocket size of 10.5 cm. Laboratory data reviewed, WBC 5.8, hgb 11.3, plt 293, sodium 135, potassium 4.5, creatinine 1.16, troponin 0.031, 0.036 and 0.030, proBNP 5200, magnesium 1.8. Current daily cardiac medications include aspirin 81 mg daily, Plavix 75 mg daily, ranexa 500 mg BID and rosuvastatin 40 mg daily. Most recent echocardiogram obtained 10/30/2018 reveals impaired LV systolic function with ejection fraction 20-25%, global hypokinesia, mild MR, moderate TR and moderate pulmonary hypertension with an RVSP of 51 mmHg. He also had a limited study 12/11/2018 revealing EF less then 20%, moderate/severe TR, mild PH with RVSP 36 mmHg At the time of my exam: CONSTITUTIONAL: Denies fever. Denies chills. EYES: Denies blurred vision. Denies vision changes. Denies eye pain. EARS, NOSE, MOUTH & THROAT: Denies headache. Denies sore throat. Denies ear pain. CARDIOVASCULAR: Complains of pleuritic chest pain. Complains of shortness of breath. Denies orthopnea. Denies PND. Denies palpitations. RESPIRATORY: Denies cough. GASTROINTESTINAL: Denies abdominal pain. Denies diarrhea. Denies constipation. Denies nausea. Denies vomiting. MUSCULOSKELETAL: Denies myalgias. INTEGUMENTARY: Denies pruitis. Denies rash. NEUROLOGIC: Denies numbness. Denies tingling. Denies weakness. PSYCHIATRIC: Denies anxiety. Denies depression. ENDOCRINE: Complains of fatigue. Denies weight change. Denies polydipsia. Denies polyurina. GENITOURINARY: Denies burning, hematuria or urgency with micturation. HEMATOLOGIC: Denies history of anemia. Denies bleeding. Blood pressure 114/74 herat rate 104 afebrile and maintaining oxygen saturation on room air. GENERAL: This is a 42-year-old male in no apparent distress at the time of my examination. Generalized pallor noted. HEENT: Head is atraumatic, normocephalic. Pupils are equal, round. Sclerae anicteric. Conjunctivae are clear. Mucous membranes of the mouth are moist. Neck is supple. There is no jugular venous distention. No carotid bruit is heard. LUNGS: Diminished bilaterally. Clear to auscultation no wheezes, rales or rhonchi. No chest wall tenderness is noted on palpation or with deep breathing. HEART: Regular rate and rhythm with murmur at the left sternal border, no rubs or gallops. S1 and S2 heard. ABDOMEN: Soft, nontender. Bowel sounds are heard. No organomegaly noted. EXTREMITIES: No evidence of peripheral edema and no calf tenderness noted. VASCULAR: Radial and dorsalis pedis pulses palpated, no evidence of clubbing. NEUROLOGIC: Patient is awake, alert and oriented x3. ASSESSMENT Chest pain, atypical for angina. Secondary to recent thoracentesis with pleuritic features. Chronic systolic heart failure Pleural effusion, small on the right. S/P thoracentesis at [facility]. History of hypertension Ischemic cardiomyopathy status post AICD placement Dyslipidemia Depression Diabetes mellitus History of CVA Morbid obesity, BMI 41 Non-compliance PLAN Transition to oral diuretics, 20 mg daily. No evidence to suggest ischemic disease. Mild troponin elevation is flat and chronic, not suggestive of an acute event. No further cardiac intervention, follow up with his primary team guide at [facility] upon discharge. Thank you kindly for this consultation. Nurse Practitioner note has been reviewed, I agree with a documented findings and plan of care. Patient was seen and examined. Past Medical History Past Medical History: Asthma, Coronary Artery Disease (CAD), Chest Pain / Angina, Heart Failure, CVA/TIA, Diabetes Mellitus, Deep Vein Thrombosis (DVT), GERD/Reflux, Hyperlipidemia, Hypertension, Myocardial Infarction (RI), Osteoarthritis (OA), Pneumonia, Skin Disorder, Sleep Apnea/CPAP/BIPAP Additional Past Medical History / Comment(s): multiple vessel CAD, ischemic cardiomyopathy, diabetic neuropathy bilateral hands and feet, hypertensive cardiovascular disease, SHELIA with no device, chronic gastritis, degenerative disc disease, chronic back pain, depression with hx of suicide attempts, gastroparesis, psoriasis, UTI, migraines, TIA, PUD, hiatal hernia, L rotator cuff tear, bronchitis, pseudoaneurysm L groin post procedure. 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 Last Myocardial Infarction Date:: October 2017 History of Any Multi-Drug Resistant Organisms: MRSA Date of last positivie culture/infection: 11/05/17 (Culture done at [facility]) MDRO Source:: legs Past Surgical History: AICD, Appendectomy, Cholecystectomy, Heart Catheterization With Stent, Hernia Repair Additional Past Surgical History / Comment(s): Pt has had multiple cardiac procedures- caths/stents/PTCA, last stent placed at [facility] -October2017, SAVANNAH, R inguinal hernia repair, umbilical hernia repair, 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 Date of Last Stent Placement:: 10/2018 Type of Cardiac Device: Biventricular Pacemaker, AICD Device Placement Date:: 09/19/15 Past Psychological History: Anxiety, Depression, PTSD Additional Psychological History / Comment(s): Several suicide attempts with use of insulin. PTSD - in 2000 his 3mo old son in his arms (born 2 months premature). He has a walker at home if needed. He drives.pt has 2 adult stepchildren at home with him most of the time. Spouse manages his medications. Smoking Status: Never smoker Past Alcohol Use History: None Reported Additional Past Alcohol Use History / Comment(s): Past alcohol abuse - pt states he quit drinking over 8yrs ago. Past Drug Use History: None Reported Additional Drug Use History / Comment(s): Pt has smoked marijuana in the past - last smoked in 1999. - Past Family History Mother Family Medical History: Coronary Artery Disease (CAD), Myocardial Infarction (RI) Additional Family Medical History / Comment(s): 7 RI and faulty heart valve. Pt does not know the age when mother had her RI's. Father History Unknown: Yes Additional Family Medical History / Comment(s): Does not know who father is. Brother(s) Family Medical History: Cancer, Congestive Heart Failure (CHF), Myocardial Infarction (RI) Additional Family Medical History / Comment(s): Parkinsons. Pt does not know at what age his brother had an RI. Patient's other brother has lung CA Patient has Family Medical History: No Reported History Additional Family Medical History / Comment(s): There is a strong family history for heart disease, hypertension, and diabetes. Medications and Allergies Home Medications Medication Instructions Recorded Confirmed Type Clopidogrel [Plavix] 75 mg PO QAM 12/03/17 12/22/18 History Albuterol Inhaler [Ventolin Hfa 2 puff INHALATION RT-Q6H PRN 04/01/18 12/22/18 History Inhaler] Pantoprazole [Protonix] 40 mg PO DAILY 04/01/18 12/22/18 History Primidone [Mysoline] 100 mg PO BID 04/01/18 12/22/18 History DULoxetine HCL [Cymbalta] 60 mg PO BID capsule. 05/10/18 12/22/18 Rx Aspirin EC [Ecotrin Low Dose] 81 mg PO DAILY 07/20/18 12/22/18 History Ranolazine [Ranexa] 500 mg PO BID 11/06/18 12/22/18 History Nitroglycerin Sl Tabs [Nitrostat] 0.4 mg SUBLINGUAL Q5M PRN 11/08/18 12/22/18 History Tamsulosin HCl [Flomax] 0.4 mg PO DAILY 11/08/18 12/22/18 History Morphine Sulfate 7.5 mg PO DAILY PRN 12/10/18 12/22/18 History Rosuvastatin Calcium [Crestor] 40 mg PO DAILY 12/10/18 12/22/18 History INSULIN ASPART (NovoLOG) [NovoLOG 16 unit SQ AC-TID vial 12/13/18 12/22/18 Rx (formulary)] Insulin Glargine [Lantus] 10 units SQ HS #0 12/13/18 12/22/18 Rx INSULIN ASPART (NovoLOG) [NovoLOG See Protocol SQ ACHS 12/22/18 12/22/18 History (formulary)] Allergies Allergy/AdvReac Type Severity Reaction Status Date / Time erythromycin base Allergy Severe Rash/Hives Verified 12/22/18 06:47 [Erythromycin Base] cephalexin monohydrate Allergy Unknown Rash/Hives Verified 12/22/18 06:47 [From Keflex] codeine Allergy Unknown Unknown Verified 12/22/18 06:47 meclizine Allergy Unknown Unknown Verified 12/22/18 06:47 Penicillins Allergy Unknown Rash/Hives Verified 12/22/18 06:47 shellfish derived Allergy Unknown Anaphylaxis Verified 12/22/18 06:47 Fish Containing Products Allergy Anaphylaxis Verified 12/22/18 06:47 [Fish] Iodinated Contrast- Oral and Allergy Anaphylaxis Verified 12/22/18 06:47 IV Dye naproxen AdvReac Unknown Compromises Verified 12/22/18 06:47 Kidney Function atorvastatin calcium AdvReac Myalgia Verified 12/22/18 06:47 [From Lipitor] hydrocodone [From [place]] AdvReac Rapid Verified 12/22/18 06:47 Heart Rate Physical Exam Vitals: Vital Signs Temp Pulse Resp BP BP Pulse Ox 12/23/18 07:10 97.6 F 104 H 18 114/74 98 12/23/18 04:00 98.3 F 102 H 18 95/63 94 L 12/23/18 00:00 97.9 F 99 18 102/61 95 12/22/18 20:00 98.2 F 101 H 16 96/54 90 L 12/22/18 15:51 92 17 105/77 99 12/22/18 13:50 98.0 F 94 108/78 98 12/22/18 12:44 100 105/67 Intake and Output 12/22/18 12/23/18 12/23/18 22:59 06:59 14:59 Intake Total 1080 600 478 Output Total 325 Balance 1080 600 153 Intake: Oral 480 478 Other 600 600 Output: Urine 325 Other: Voiding Method Urinal Urinal Urinal # Voids 2 Weight 108.5 kg Results 12/22/18 03:40 12/23/18 07:27 Cardiac Enzymes 12/22/18 12/22/18 Range/Units 13:34 19:51 Troponin I 0.036 H* 0.030 (0.000-0.034) ng/mL Comprehensive Metabolic Panel 12/23/18 Range/Units 07:27 Sodium 135 L (137-145) mmol/L Potassium 4.5 (3.5-5.1) mmol/L Chloride 99 (98-107) mmol/L Carbon Dioxide 25 (22-30) mmol/L BUN 21 H (9-20) mg/dL Creatinine 1.16 (0.66-1.25) mg/dL Glucose 155 H (74-99) mg/dL Calcium 8.7 (8.4-10.2) mg/dL Current Medications Generic Name Dose Route Start Last Admin Trade Name Freq PRN Reason Stop Dose Admin Albuterol Sulfate 2.5 mg 12/22/18 06:07 Ventolin Nebulized INHALATION RT-Q6H PRN Shortness Of Breath Aspirin 81 mg 12/22/18 09:00 12/23/18 09:02 Aspirin PO 81 mg DAILY JAKE Administration Clopidogrel Bisulfate 75 mg 12/22/18 09:00 12/23/18 09:02 Plavix PO 75 mg QAM JAKE Administration Duloxetine HCl 60 mg 12/22/18 09:00 12/23/18 09:03 Cymbalta PO 60 mg BID JAKE Administration Furosemide 40 mg 12/22/18 09:30 12/23/18 09:03 Lasix IV 40 mg Q8HR JAKE Administration Heparin Sodium (Porcine) 5,000 unit 12/23/18 00:00 12/23/18 09:03 Heparin SQ 5,000 unit Q8HR JAKE Administration Sodium Chloride 1,000 mls @ 20 mls/hr 12/22/18 06:15 12/23/18 05:48 Saline 0.9% IV Not Given .Q24H JAKE Insulin Aspart 16 unit 12/22/18 07:30 12/23/18 09:03 Novolog SQ 16 unit AC-TID JAKE Administration Insulin Detemir 10 unit 12/22/18 21:00 12/22/18 20:41 Levemir SQ 10 unit HS JAKE Administration Metoprolol Tartrate 12.5 mg 12/22/18 10:30 12/23/18 09:02 Lopressor PO 12.5 mg BID JAKE Administration Morphine Sulfate 7.5 mg 12/22/18 06:07 12/22/18 18:59 Msir PO 7.5 mg DAILY PRN Administration Pain Naloxone HCl 0.2 mg 12/22/18 06:05 Narcan IV Q2M PRN Opioid Reversal Nitroglycerin 0.4 mg 12/22/18 06:07 12/22/18 20:45 Nitrostat SUBLINGUAL 0.4 mg Q5M PRN Administration Chest Pain Rosuvastatin Calcium 40 mg 12/22/18 09:00 12/23/18 09:08 [Crestor] 40 Mg PO Not Given DAILY JAKE Ondansetron HCl 4 mg 12/22/18 06:05 Zofran IVP Q8HR PRN Nausea And Vomiting Pantoprazole Sodium 40 mg 12/22/18 07:30 12/23/18 09:02 Protonix PO 40 mg AC-BRKFST JAKE Administration Primidone 100 mg 12/22/18 09:00 12/23/18 09:03 Mysoline PO 100 mg BID JAKE Administration Ranolazine 500 mg 12/22/18 09:00 12/23/18 09:02 Ranexa PO 500 mg BID JAKE Administration Tamsulosin HCl 0.4 mg 12/22/18 09:00 12/23/18 09:03 Flomax PO 0.4 mg DAILY JAKE Administration Intake and Output 12/22/18 12/23/18 12/23/18 22:59 06:59 14:59 Intake Total 1080 600 478 Output Total 325 Balance 1080 600 153 Intake: Oral 480 478 Other 600 600 Output: Urine 325 Other: Voiding Method Urinal Urinal Urinal # Voids 2 Weight 108.5 kg Patient Weight 12/24/18 06:59 Weight 108.5 kg 12/22/18 03:40 12/23/18 07:27
[2018-12-23 11:11] LABS: Glucose,Whole Blood 160 mg/dL (75-99)
[2018-12-23 11:13] VITALS: BP 118/81; PULSE 101
--- NOTE | 2018-12-23 13:01 | P.DS ---
Providers Date of admission: 12/22/18 06:05 Attending physician: Safia Clay Consults: 12/22/18 06:06 Consult Physician Routine Consulting Provider: Xavier Valerio Consult Reason/Comments: Pleural effusion Do you want consulting provider notified?: Yes 12/22/18 14:30 Consult Physician Routine Consulting Provider: Judi Jordan Consult Reason/Comments: chest pain Do you want consulting provider notified?: Yes Primary care physician: [facility] Course: 42 y.o.male with a past medical history of coronary artery disease, NSTEMI, CAD with multiple stents, ischemic cardiomyopathy with EF 15-20% with AICD placement, diabetes mellitus, asthma, obstructive sleep apnea, TIA, pulmonary embolism, gastroparesis, hypertension, hyperlipidemia, depression, obesity who came into the emergency room with the complaints of shortness of breath and chest pain. Patient had a recent cardiac catheterization on 11/30/2018 at [facility] and has had PTCA, drug-eluting stent of mid circumflex artery. Patient was admitted to the [facility] on 12/14/2018 with complaints of shortness of breath and chest x-ray showed right-sided large pleural effusion. Patient was seen by pulmonary at the time and were not able to perform thoracentesis due to patient being on aspirin Plavix. Patient was eventually transferred to [facility] where he had thoracentesis done with 1.4 L fluid removal. Patient was sent home and since then patient is having worsening short of breath. Yesterday patient developed midsternal chest pain along with shortness of breath which made him come to ER for further evaluation. 12/23/2018 Patient respiratory status improved did not require any thoracocentesis here. Although patient will be started on Lasix. Patient was started on 40 mg of Lasix daily and will be discharged with close follow-up with his cardiolysis as an outpatient. Patient has multiple hospital admission for hypotension excess Lasix will make him hypotensive and now Lasix a lower dose of Lasix and making didn't go into heart failure or his pleural effusions will recur. Patient is high risk for readmission patient is highly noncompliant with the recommenda tions and medications.. PHYSICAL EXAMINATION: GENERAL: The patient is alert and oriented x3, not in any acute distress. Obese HEENT: Pupils are round and equally reacting to light. EOMI. No scleral icterus. No conjunctival pallor. Normocephalic, atraumatic. No pharyngeal erythema. No thyromegaly. CARDIOVASCULAR: S1 and S2 present. No murmurs, rubs, or gallops. PULMONARY: Chest is clear to auscultation, no wheezing or crackles. ABDOMEN: Soft, nontender, nondistended, normoactive bowel sounds. No palpable organomegaly. MUSCULOSKELETAL: No joint swelling or deformity. EXTREMITIES: No cyanosis, clubbing, or pedal edema. NEUROLOGICAL: Gross neurological examination did not reveal any focal deficits. SKIN: No rashes. Assessment and Plan Assessment: Shortness of breath secondary to recurrent right-sided pleural effusion. Status post right-sided thoracentesis 2 days ago at [facility]. I'm improved symptoms with diuretics Intermittent chest pain. Chest pain appears to be seconded to recent thoracocentesis oncology evaluated the patient cleared for discharge Acute on Chronic CHF with systolic dysfunction, EF 15-20% patient was in minimal exacerbation when he was admitted presently euvolemic ischemic cardiomyopathy s/p AICD implantation chronic kidney disease stage III History of coronary artery disease with multiple stent placements. Most recent on 11/30/2018 Hypertension Obstructive sleep apnea, uses CPAP Depression History of suicide attempt Persistent asthma History of CVA no residual deficit Type 2 diabetes mellitus. Insulin-dependent. Morbid obesity with a BMI 38.4 Mild intermittent asthma stable. DVT prophylaxis with heparin subcu. Patient Condition at Discharge: Fair Plan - Discharge Summary New Discharge Prescriptions: New Furosemide [Lasix] 40 mg PO DAILY #30 tab Metoprolol Tartrate [Lopressor] 12.5 mg PO BID #60 tab Continue Clopidogrel [Plavix] 75 mg PO QAM Albuterol Inhaler [Ventolin Hfa Inhaler] 2 puff INHALATION RT-Q6H PRN PRN Reason: Shortness Of Breath Primidone [Mysoline] 100 mg PO BID Pantoprazole [Protonix] 40 mg PO DAILY DULoxetine HCL [Cymbalta] 60 mg PO BID capsule. Aspirin EC [Ecotrin Low Dose] 81 mg PO DAILY Ranolazine [Ranexa] 500 mg PO BID Nitroglycerin Sl Tabs [Nitrostat] 0.4 mg SUBLINGUAL Q5M PRN PRN Reason: Chest Pain Tamsulosin HCl [Flomax] 0.4 mg PO DAILY Rosuvastatin Calcium [Crestor] 40 mg PO DAILY Morphine Sulfate 7.5 mg PO DAILY PRN PRN Reason: Pain Insulin Glargine [Lantus] 10 units SQ HS #0 INSULIN ASPART (NovoLOG) [NovoLOG (formulary)] 16 unit SQ AC-TID vial INSULIN ASPART (NovoLOG) [NovoLOG (formulary)] See Protocol SQ ACHS Discharge Medication List Clopidogrel [Plavix] 75 mg PO QAM 12/03/17 [History] Albuterol Inhaler [Ventolin Hfa Inhaler] 2 puff INHALATION RT-Q6H PRN 04/01/18 [History] Pantoprazole [Protonix] 40 mg PO DAILY 04/01/18 [History] Primidone [Mysoline] 100 mg PO BID 04/01/18 [History] DULoxetine HCL [Cymbalta] 60 mg PO BID capsule. 05/10/18 [Rx] Aspirin EC [Ecotrin Low Dose] 81 mg PO DAILY 07/20/18 [History] Ranolazine [Ranexa] 500 mg PO BID 11/06/18 [History] Nitroglycerin Sl Tabs [Nitrostat] 0.4 mg SUBLINGUAL Q5M PRN 11/08/18 [History] Tamsulosin HCl [Flomax] 0.4 mg PO DAILY 11/08/18 [History] Morphine Sulfate 7.5 mg PO DAILY PRN 12/10/18 [History] Rosuvastatin Calcium [Crestor] 40 mg PO DAILY 12/10/18 [History] INSULIN ASPART (NovoLOG) [NovoLOG (formulary)] 16 unit SQ AC-TID vial 12/13/18 [Rx] Insulin Glargine [Lantus] 10 units SQ HS #0 12/13/18 [Rx] INSULIN ASPART (NovoLOG) [NovoLOG (formulary)] See Protocol SQ ACHS 12/22/18 [H istory] Furosemide [Lasix] 40 mg PO DAILY #30 tab 12/23/18 [Rx] Metoprolol Tartrate [Lopressor] 12.5 mg PO BID #60 tab 12/23/18 [Rx] Follow up Appointment(s)/Referral(s): Junie New MD [Primary Care Provider] - 3 Days Discharge Disposition: HOME SELF-CARE
[2018-12-24] MEDS ORDERED: FUROSEMIDE 20 MG TAB PO SCH (09:00)
== END 2018-12-23 13:57 | disposition home or self-care (01) ==
LOC: EC 02:11 → 1SOBS 06:05
PROVIDERS: ADMIT Hospitalist; ATTEND Hospitalist
DX: J90 Pleural effusion, not elsewhere classified (principal); I25.2 Old myocardial infarction; I25.10 Atherosclerotic heart disease of native coronary artery without angina pectoris; R07.89 Other chest pain; K44.9 Diaphragmatic hernia without obstruction or gangrene; E11.42 Type 2 diabetes mellitus with diabetic polyneuropathy; I13.0 Hypertensive heart and chronic kidney disease with heart failure and stage 1 through stage 4 chronic kidney disease, or unspecified chronic kidney disease; I25.5 Ischemic cardiomyopathy; Z95.810 Presence of automatic (implantable) cardiac defibrillator; I50.23 Acute on chronic systolic (congestive) heart failure; Z68.41 Body mass index [BMI] 40.0-44.9, adult; E66.01 Morbid (severe) obesity due to excess calories; F32.9 Major depressive disorder, single episode, unspecified; F43.10 Post-traumatic stress disorder, unspecified; G89.29 Other chronic pain; I07.1 Rheumatic tricuspid insufficiency; I27.20 Pulmonary hypertension, unspecified; J45.20 Mild intermittent asthma, uncomplicated; K21.9 Gastro-esophageal reflux disease without esophagitis; N18.3 Chronic kidney disease, stage 3 (moderate); E11.22 Type 2 diabetes mellitus with diabetic chronic kidney disease; J45.909 Unspecified asthma, uncomplicated; G47.33 Obstructive sleep apnea (adult) (pediatric); E11.43 Type 2 diabetes mellitus with diabetic autonomic (poly)neuropathy; K31.84 Gastroparesis; E78.5 Hyperlipidemia, unspecified; Z95.5 Presence of coronary angioplasty implant and graft; Z86.73 Personal history of transient ischemic attack (TIA), and cerebral infarction without residual deficits; Z87.440 Personal history of urinary (tract) infections; Z91.5 Personal history of self-harm; Z79.02 Long term (current) use of antithrombotics/antiplatelets; Z79.4 Long term (current) use of insulin; Z79.82 Long term (current) use of aspirin; Z79.899 Other long term (current) drug therapy; Z86.711 Personal history of pulmonary embolism; Z86.718 Personal history of other venous thrombosis and embolism; Z86.74 Personal history of sudden cardiac arrest; Z91.19 Patient's noncompliance with other medical treatment and regimen; Z82.0 Family history of epilepsy and other diseases of the nervous system; Z82.49 Family history of ischemic heart disease and other diseases of the circulatory system; Z83.3 Family history of diabetes mellitus
CPT/HCPCS: 96372 ×2; 96375 ×3; 96376 ×3; 96374; 99285; 36415; 93005; 83880; 80053; 80048; 83735; 84484; 85025; 71046 ×2; 76604; G0378 ×2; J2270 ×2; J1200; J1644 ×2; J1940 ×2; J2405; J1170

== ENCOUNTER 2019-01-01 22:54 | Emergency (ER) | payer MEDICARE, OTHER ==
[2019-01-01 23:10] LABS: Glucose,Whole Blood 160 mg/dL (75-99)
[2019-01-01] MEDS ORDERED: ACETAMINOPHEN TAB 325 MG TAB PO STA (23:22)
--- NOTE | 2019-01-01 23:23 | ED ---
General Adult HPI - General Stated complaint: Possible CVA Time Seen by Provider: 01/01/19 22:58 - History of Present Illness Initial comments: Ti is a 43-year-old gentleman very extensive past medical history most significant for recent admission to [facility] in [place] for pulmonary embolisms for which the patient was on IV heparin, patient was transitioned to by mouth L Manjit earlier today and subsequently discharged. Patient also has a recent history of cardiac arrest for which she was coated 3 times in the month of November. Patient reports he returned home this evening from his admission to [facility]. He states that he was laying in bed feeling okay still having some mild shortness of breath which is at this point his baseline. Patient reports he developed sudden onset stabbing headache and felt as though he had been struck in the head by a hammer. The pain in his head of radiated down his neck. Patient reports that he also felt as though his right foot and arm went numb, began tingling and he felt that there was weakness in his right leg. Patient became concerned he may be having a stroke and he called 911. - Related Data Home Medications Medication Instructions Recorded Confirmed RX: Clopidogrel [Plavix] 75 mg PO QAM 12/03/17 01/01/19 RX: Albuterol Inhaler [Ventolin 2 puff INHALATION RT-Q6H PRN 04/01/18 01/01/19 Hfa Inhaler] RX: Pantoprazole [Protonix] 40 mg PO DAILY 04/01/18 01/01/19 RX: Primidone [Mysoline] 100 mg PO BID 04/01/18 01/01/19 RX: Aspirin EC [Ecotrin Low Dose] 81 mg PO DAILY 07/20/18 01/01/19 RX: Ranolazine [Ranexa] 500 mg PO BID 11/06/18 01/01/19 RX: Nitroglycerin Sl Tabs 0.4 mg SUBLINGUAL Q5M PRN 11/08/18 01/01/19 [Nitrostat] RX: Tamsulosin HCl [Flomax] 0.4 mg PO DAILY 11/08/18 01/01/19 RX: Morphine Sulfate 7.5 mg PO DAILY PRN 12/10/18 01/01/19 RX: Rosuvastatin Calcium [Crestor] 40 mg PO DAILY 12/10/18 01/01/19 RX: INSULIN ASPART (NovoLOG) See Protocol SQ ACHS 12/22/18 01/01/19 [NovoLOG (formulary)] Metoprolol Tartrate [Lopressor] 12.5 mg PO BID 01/01/19 01/01/19 Previous Rx's Medication Instructions Recorded RX: DULoxetine HCL [Cymbalta] 60 mg PO BID capsule. 05/10/18 RX: INSULIN ASPART (NovoLOG) 16 unit SQ AC-TID vial 12/13/18 [NovoLOG (formulary)] RX: Insulin Glargine [Lantus] 10 units SQ HS #0 12/13/18 RX: Furosemide [Lasix] 40 mg PO DAILY #30 tab 12/23/18 Allergies Allergy/AdvReac Type Severity Reaction Status Date / Time erythromycin base Allergy Severe Rash/Hives Verified 01/01/19 23:03 [Erythromycin Base] cephalexin monohydrate Allergy Unknown Rash/Hives Verified 01/01/19 23:03 [From Keflex] codeine Allergy Unknown Unknown Verified 01/01/19 23:03 meclizine Allergy Unknown Unknown Verified 01/01/19 23:03 Penicillins Allergy Unknown Rash/Hives Verified 01/01/19 23:03 shellfish derived Allergy Unknown Anaphylaxis Verified 01/01/19 23:03 Fish Containing Products Allergy Anaphylaxis Verified 01/01/19 23:03 [Fish] Iodinated Contrast- Oral and Allergy Anaphylaxis Verified 01/01/19 23:03 IV Dye naproxen AdvReac Unknown Compromises Verified 01/01/19 23:03 Kidney Function atorvastatin calcium AdvReac Myalgia Verified 01/01/19 23:03 [From Lipitor] hydrocodone [From [place]] AdvReac Rapid Verified 01/01/19 23:03 Heart Rate Review of Systems ROS Statement: Those systems with pertinent positive or pertinent negative responses have been documented in the HPI. ROS Other: All systems not noted in ROS Statement are negative. Past Medical History Past Medical History: Asthma, Coronary Artery Disease (CAD), Chest Pain / A ngina, Heart Failure, CVA/TIA, Diabetes Mellitus, Deep Vein Thrombosis (DVT), GERD/Reflux, Hyperlipidemia, Hypertension, Myocardial Infarction (IL), Osteoarthritis (OA), Pneumonia, Skin Disorder, Sleep Apnea/CPAP/BIPAP Additional Past Medical History / Comment(s): multiple vessel CAD, ischemic cardiomyopathy, diabetic neuropathy bilateral hands and feet, hypertensive cardi ovascular disease, SHELIA with no device, chronic gastritis, degenerative disc disease, chronic back pain, depression with hx of suicide attempts, gastroparesis, psoriasis, UTI, migraines, TIA, PUD, hiatal hernia, L rotator cuff tear, bronchitis, pseudoaneurysm L groin post procedure. 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 Date of Last Stent Placement:: 10/2018 Type of Cardiac Device: Biventricular Pacemaker, AICD Device Placement Date:: 09/19/15 Past Psychological History: Anxiety, Depression, PTSD Additional Psychological History / Comment(s): Several suicide attempts with use of insulin. PTSD - in 2000 his 3mo old son in his arms (born 2 months premature). He has a walker at home if needed. He drives.pt has 2 adult stepchildren at home with him most of the time. Spouse manages his medications. Smoking Status: Never smoker Past Alcohol Use History: None Reported Additional Past Alcohol Use History / Comment(s): Past alcohol abuse - pt states he quit drinking over 8yrs ago. Past Drug Use History: None Reported Additional Drug Use History / Comment(s): Pt has smoked marijuana in the past - last smoked in 1999. - Past Family History Brother(s) Family Medical History: Cancer, Congestive Heart Failure (CHF), Myocardial Infarction (IL) Additional Family Medical History / Comment(s): Parkinsons. Pt does not know at what age his brother had an IL. Patient's other brother has lung CA Father History Unknown: Yes Additional Family Medical History / Comment(s): Does not know who father is. Mother Family Medical History: Coronary Artery Disease (CAD), Myocardial Infarction (IL) Additional Family Medical History / Comment(s): 7 IL and faulty heart valve. Pt does not know the age when mother had her IL's. Patient has Family Medical History: No Reported History Additional Family Medical History / Comment(s): There is a strong family history for heart disease, hypertension, and diabetes. General Exam - General Exam Comments Initial Comments: Physical Exam GENERAL: Chronically ill-appearing, obese Appears pale, not diaphoretic HENT: Normocephalic, Atraumatic. EYES: PERRL, EOMI PULMONARY: Tachypnea Crackles at bases CARDIOVASCULAR: Tachycardic Warm well perfused extremities 1+ edema bilaterally ABDOMEN: Obese Soft, nontender no pulsatile masses SKIN: Pale Bruising at multiple sites on the arms and the right side of the neck consistent with multiple attempts at IV access and recent right internal jugular central venous catheter : Deferred NEUROLOGIC: Patient is alert and oriented x3. Cranial nerves II through XII grossly intact Normal speech There is weakness of the right lower extremity, subjective decreased sensation in the right upper and lower extremity, appears to have ataxia of the right lower extremity though this may be due to weakness NIH score upon arrival is 4 MUSCULOSKELETAL: General debility PSYCHIATRIC: Situational depression, has considered enrolling in comfort care but has declined hospice Course Vital Signs 01/01/19 01/01/19 01/01/19 23:00 23:15 23:29 Temperature 98.4 F 98.3 F 98.4 F Pulse Rate 114 H 105 H 105 H Respiratory 20 15 20 Rate Blood Pressure 117/83 129/87 123/82 O2 Sat by Pulse 94 L 95 94 L Oximetry 01/01/19 01/02/19 01/02/19 23:45 00:00 01:00 Temperature 98.0 F 97.8 F Pulse Rate 98 105 H 105 H Respiratory 18 22 20 Rate Blood Pressure 119/97 126/85 131/95 O2 Sat by Pulse 95 94 L 94 L Oximetry 01/02/19 01/02/19 01/02/19 01:52 03:00 04:00 Temperature 97.8 F Pulse Rate 92 96 105 H Respiratory 20 18 20 Rate Blood Pressure 126/97 127/62 129/93 O2 Sat by Pulse 94 L 94 L 94 L Oximetry EKG Findings - EKG Comments: EKG Findings:: EKG was obtained at 2309, rate is 111 rhythm is atrial sensed ventricular paced there is normal axis normal intervals, VT 160, temperature is 90, QTc is [address] elevations or depressions no evidence of acute ischemia or infarction. Medical Decision Making - Medical Decision Making Code stroke was activated per EMS report Patient arrived in the emergency department, was awake and talking had patent airway therefore was transferred directly to the CT suite Initial NIH 4 Patient care was discussed with neuro interventional is Dr. Babcock, Patient is absolutely not a candidate for TPA given that he has been on heparin until this morning and is on Eliquis Labs resulted at baseline for patient, chronic anemia Patient has continued weakness in his right lower extremity, is able to stand but reports he has to lean on the bed. I did discuss with the patient whether or not this was residual from his recent cardiac arrest, his prolonged hos pitalization perhaps he is simply decondition however patient insists that he did not have this weakness upon arrival home this afternoon. I discussed disposition options with the patient including transfer back to [facility] where he was recently evaluated patient would prefer not to go to [facility] therefore Anabela Aguilar contacted for transfer. Patient care was discussed with Dr. Roca in the emergency Department who accepts the transfer - Lab Data Result diagrams: 01/01/19 23:24 01/01/19 23:24 Lab Results 01/01/19 01/01/19 01/01/19 Range/Units 23:08 23:24 23:24 WBC 6.3 (3.8-10.6) k/uL RBC 4.51 (4.30-5.90) m/uL Hgb 10.9 L (13.0-17.5) gm/dL Hct 35.9 L (39.0-53.0) % MCV 79.8 L (80.0-100.0) fL MCH 24.2 L (25.0-35.0) pg MCHC 30.3 L (31.0-37.0) g/dL RDW 16.9 H (11.5-15.5) % Plt Count 277 (150-450) k/uL Neutrophils % 70 % Lymphocytes % 20 % Monocytes % 5 % Eosinophils % 2 % Basophils % 1 % Neutrophils # 4.4 (1.3-7.7) k/uL Lymphocytes # 1.3 (1.0-4.8) k/uL Monocytes # 0.3 (0-1.0) k/uL Eosinophils # 0.1 (0-0.7) k/uL Basophils # 0.1 (0-0.2) k/uL Hypochromasia Marked Poikilocytosis Slight Anisocytosis Slight Microcytosis Slight PT (9.0-12.0) sec INR (<1.2) APTT (22.0-30.0) sec Sodium 133 L (137-145) mmol/L Potassium 4.5 (3.5-5.1) mmol/L Chloride 95 L (98-107) mmol/L Carbon Dioxide 30 (22-30) mmol/L Anion Gap 8 mmol/L BUN 37 H (9-20) mg/dL Creatinine 1.23 (0.66-1.25) mg/dL Est GFR (CKD-EPI)AfAm 83 (>60 ml/min/1.73 sqM) Est GFR (CKD-EPI)NonAf 72 (>60 ml/min/1.73 sqM) Glucose 158 H (74-99) mg/dL POC Glucose (mg/dL) 160 H (75-99) mg/dL POC Glu Quencher Operator Jemma Bland Calcium 8.9 (8.4-10.2) mg/dL Total Bilirubin 0.6 (0.2-1.3) mg/dL AST 35 (17-59) U/L ALT 79 H (21-72) U/L Alkaline Phosphatase 156 H (38-126) U/L Total Creatine Kinase (55-170) U/L CK-MB (CK-2) (0.0-2.4) ng/mL CK-MB (CK-2) Rel Index Troponin I (0.000-0.034) ng/mL Total Protein 6.0 L (6.3-8.2) g/dL Albumin 3.3 L (3.5-5.0) g/dL 01/01/19 01/01/19 Range/Units 23:24 23:24 WBC (3.8-10.6) k/uL RBC (4.30-5.90) m/uL Hgb (13.0-17.5) gm/dL Hct (39.0-53.0) % MCV (80.0-100.0) fL MCH (25.0-35.0) pg MCHC (31.0-37.0) g/dL RDW (11.5-15.5) % Plt Count (150-450) k/uL Neutrophils % % Lymphocytes % % Monocytes % % Eosinophils % % Basophils % % Neutrophils # (1.3-7.7) k/uL Lymphocytes # (1.0-4.8) k/uL Monocytes # (0-1.0) k/uL Eosinophils # (0-0.7) k/uL Basophils # (0-0.2) k/uL Hypochromasia Poikilocytosis Anisocytosis Microcytosis PT 11.9 (9.0-12.0) sec INR 1.1 (<1.2) APTT 25.0 (22.0-30.0) sec Sodium (137-145) mmol/L Potassium (3.5-5.1) mmol/L Chloride (98-107) mmol/L Carbon Dioxide (22-30) mmol/L Anion Gap mmol/L BUN (9-20) mg/dL Creatinine (0.66-1.25) mg/dL Est GFR (CKD-EPI)AfAm (>60 ml/min/1.73 sqM) Est GFR (CKD-EPI)NonAf (>60 ml/min/1.73 sqM) Glucose (74-99) mg/dL POC Glucose (mg/dL) (75-99) mg/dL POC Glu Quencher Operator ID Calcium (8.4-10.2) mg/dL Total Bilirubin (0.2-1.3) mg/dL AST (17-59) U/L ALT (21-72) U/L Alkaline Phosphatase (38-126) U/L Total Creatine Kinase 45 L (55-170) U/L CK-MB (CK-2) 1.4 (0.0-2.4) ng/mL CK-MB (CK-2) Rel Index 3.1 Troponin I 0.017 (0.000-0.034) ng/mL Total Protein (6.3-8.2) g/dL Albumin (3.5-5.0) g/dL Critical Care Time Critical Care Time: Yes Total Critical Care Time: 30 Critical Care Time: Critical Care Time Critical care time was exclusive of separately billable procedures and treating other patients and teaching time. Critical care was necessary to treat or prevent imminent or life-threatening deterioration. Given the critical condition in which the patient arrived, the patient was immediately assessed by myself and the nurse, and cardiac monitoring initiated due to the potential for rapid decompensation of the patient's clinical co ndition. During the course of the patients stay, I spent a considerable amount of time at the bedside performing serial re-evaluations of the patient's hemodynamic and clinical status because of the recognized potential threat to life or limb in this condition. I then had a chance to review not only all of the available current laboratory and radiographic studies obtained today, but I also reviewed old records available to me at the time. Additionally, any ancillary information available including fountain supervisor records were reviewed. Sequential vital signs were obtained. Disposition Clinical Impression: Iron deficiency anemia, At risk for readmission to hospital, Weakness, Chronic pain, Hyponatremia, Diabetes, Hyperglycemia due to type 2 diabetes mellitus Disposition: OTHER INSTITUTION NOT DEFINED Condition: Serious Referrals: Junie New MD [Primary Care Provider] - 1-2 days - Out of Hospital Transfer - Req. Specs Out of Hospital Transfer - Requested Specifics: Other Emergency Center ([facility])
--- NOTE | 2019-01-01 23:24 | CT ---
EXAM: CT Head Without Intravenous Contrast CLINICAL HISTORY: Neuro Deficits TECHNIQUE: Axial computed tomography images of the head/brain without intravenous contrast. CTDI is 49.1 mGy and DLP is 1134 mGy-cm. This CT exam was performed using one or more of the following dose reduction techniques: automated exposure control, adjustment of the mA and/or kV according to patient size, and/or use of iterative reconstruction technique. COMPARISON: 09/15/18. FINDINGS: Brain: Unremarkable. No hemorrhage. No significant white matter disease. No edema. Ventricles: Unremarkable. No ventriculomegaly. Bones/joints: Unremarkable. No acute fracture. Soft tissues: Unremarkable. Sinuses: Unremarkable as visualized. No acute sinusitis. Mastoid air cells: Unremarkable as visualized. No mastoid effusion. IMPRESSION: Unremarkable CT brain
[2019-01-01 23:36] LABS: Anisocytosis Slight; Basophils # (A) 0.1 k/uL (0-0.2); Basophils % (A) 1 %; Eosinophils # (A) 0.1 k/uL (0-0.7); Eosinophils % (A) 2 %; HCT 35.9 % (39.0-53.0); HGB 10.9 gm/dL (13.0-17.5); Hypochromasia Marked; Lymphocytes # (A) 1.3 k/uL (1.0-4.8); Lymphocytes % (A) 20 %; MCH 24.2 pg (25.0-35.0); MCHC 30.3 g/dL (31.0-37.0); MCV 79.8 fL (80.0-100.0); Mean Platelet Volume 8.4; Microcytosis Slight; Monocytes # (A) 0.3 k/uL (0-1.0); Monocytes % (A) 5 %; Neutrophils # (A) 4.4 k/uL (1.3-7.7); Neutrophils % (A) 70 %; Platelet Count 277 k/uL (150-450); Poikilocytosis Slight; RBC 4.51 m/uL (4.30-5.90); RDW 16.9 % (11.5-15.5); WBC 6.3 k/uL (3.8-10.6)
[2019-01-01 23:45] LABS: INR 1.1 (<1.2); Prothrombin Time 11.9 sec (9.0-12.0)
[2019-01-01 23:46] LABS: Albumin 3.3 g/dL (3.5-5.0); Calcium 8.9 mg/dL (8.4-10.2); Potassium 4.5 mmol/L (3.5-5.1); Total Bilirubin 0.6 mg/dL (0.2-1.3)
[2019-01-02 00:07] LABS: Creatine Kinase MB 1.4 ng/mL (0.0-2.4); Troponin I 0.017 ng/mL (0.000-0.034)
[2019-01-02] MEDS ORDERED: ONDANSETRON 4 MG/2 ML VIAL IVP STA (01:43)
[2019-01-02 01:53] VITALS: TEMP 97.8
--- NOTE | 2019-01-02 02:24 | XR ---
EXAM: XR Chest, 2 Views CLINICAL HISTORY: : altered mental status TECHNIQUE: Frontal and lateral views of the chest. COMPARISON: 12/22/18. FINDINGS: Lungs: Increasing consolidation right lung base. Persistent scarring and blunting of the costophrenic angle the right. The left lung appears clear. Pleural space: Unremarkable. No pneumothorax. Heart: Unremarkable. No cardiomegaly. Mediastinum: Unremarkable. Bones/joints: Unremarkable. IMPRESSION: Increasing consolidation in the right lung base when compared to the prior study
[2019-01-02] MEDS ORDERED: HYDROmorphone 1 MG/ML 1 ML SYRINGE IVP STA (04:32)
[2019-01-02 04:47] VITALS: BP 129/93; PULSE 105; RESP 20
== END 2019-01-02 05:25 | disposition short-term general hospital (02) ==
LOC: EC 22:54
DX: E11.65 Type 2 diabetes mellitus with hyperglycemia (principal); D50.9 Iron deficiency anemia, unspecified; E87.1 Hypo-osmolality and hyponatremia; G89.29 Other chronic pain; F43.21 Adjustment disorder with depressed mood; R58 Hemorrhage, not elsewhere classified; R00.0 Tachycardia, unspecified; R60.0 Localized edema; R06.02 Shortness of breath; M54.2 Cervicalgia; J45.909 Unspecified asthma, uncomplicated; I25.119 Atherosclerotic heart disease of native coronary artery with unspecified angina pectoris; I11.0 Hypertensive heart disease with heart failure; I50.9 Heart failure, unspecified; E11.42 Type 2 diabetes mellitus with diabetic polyneuropathy; K21.9 Gastro-esophageal reflux disease without esophagitis; E78.5 Hyperlipidemia, unspecified; I25.2 Old myocardial infarction; M19.90 Unspecified osteoarthritis, unspecified site; E11.43 Type 2 diabetes mellitus with diabetic autonomic (poly)neuropathy; K31.84 Gastroparesis; Z88.0 Allergy status to penicillin; Z88.5 Allergy status to narcotic agent; Z88.6 Allergy status to analgesic agent; Z88.1 Allergy status to other antibiotic agents; Z88.8 Allergy status to other drugs, medicaments and biological substances; Z91.013 Allergy to seafood; Z91.041 Radiographic dye allergy status; Z79.4 Long term (current) use of insulin; Z79.82 Long term (current) use of aspirin; Z79.02 Long term (current) use of antithrombotics/antiplatelets; Z79.899 Other long term (current) drug therapy; Z86.73 Personal history of transient ischemic attack (TIA), and cerebral infarction without residual deficits; Z86.74 Personal history of sudden cardiac arrest; Z86.718 Personal history of other venous thrombosis and embolism; Z86.14 Personal history of Methicillin resistant Staphylococcus aureus infection; Z95.5 Presence of coronary angioplasty implant and graft; Z95.810 Presence of automatic (implantable) cardiac defibrillator; Z83.3 Family history of diabetes mellitus; Z82.49 Family history of ischemic heart disease and other diseases of the circulatory system; Z53.20 Procedure and treatment not carried out because of patient's decision for unspecified reasons; Z86.711 Personal history of pulmonary embolism
CPT/HCPCS: 36415; 93005; 80053; 82550; 82553; 84484; 85025; 85610; 85730; 71046; 70450; 99291; 96374; 96375; J2405; J1170

== ENCOUNTER 2019-01-05 03:28 | Emergency (ER) | payer MEDICARE, OTHER ==
[2019-01-05 03:39] VITALS: TEMP 97.5
[2019-01-05] MEDS ORDERED: HYDROmorphone 0.5 MG/0.5 ML SYRINGE IVP STA (04:22)
[2019-01-05 04:32] LABS: Anisocytosis Slight; Basophils # (A) 0.1 k/uL (0-0.2); Basophils % (A) 2 %; Eosinophils # (A) 0.2 k/uL (0-0.7); Eosinophils % (A) 3 %; HCT 35.4 % (39.0-53.0); HGB 10.8 gm/dL (13.0-17.5); Hypochromasia Marked; Lymphocytes # (A) 1.6 k/uL (1.0-4.8); Lymphocytes % (A) 24 %; MCH 24.7 pg (25.0-35.0); MCHC 30.5 g/dL (31.0-37.0); Mean Platelet Volume 7.6; Monocytes # (A) 0.5 k/uL (0-1.0); Monocytes % (A) 7 %; Neutrophils # (A) 4.3 k/uL (1.3-7.7); Neutrophils % (A) 63 %; Platelet Count 265 k/uL (150-450); Poikilocytosis Moderate; RBC 4.37 m/uL (4.30-5.90); RDW 17.2 % (11.5-15.5); WBC 6.8 k/uL (3.8-10.6)
--- NOTE | 2019-01-05 04:43 | XR ---
EXAM: XR Chest, 2 Views CLINICAL HISTORY: ITS.REASON XR Reason: Chest Pain TECHNIQUE: Frontal and lateral views of the chest. COMPARISON: 01/02/19 IMPRESSION: Redemonstration of right upper lobe opacity. Possibly atelectasis. Elevated right hemidiaphragm with decreased right lung volume. Left lung is unremarkable. Cardiomegaly. Pacer wires are in place.
[2019-01-05 04:52] LABS: Albumin 3.3 g/dL (3.5-5.0); Calcium 8.6 mg/dL (8.4-10.2); Magnesium 1.8 mg/dL (1.6-2.3); Potassium 4.1 mmol/L (3.5-5.1); Total Bilirubin 0.8 mg/dL (0.2-1.3); Total Protein 5.9 g/dL (6.3-8.2)
[2019-01-05 05:28] VITALS: RESP 18
--- NOTE | 2019-01-05 06:05 | ED ---
Chest Pain HPI - General Source: patient Mode of arrival: wheelchair Limitations: no limitations - History of Present Illness MD Complaint: chest pain Onset/Timin -: hour(s) Onset: other (Following argument) Pain Location: substernal Pain Radiation: LUE Severity: moderate Quality: dull Consistency: constant Improves With: nothing Worsens With: nothing Treatments Prior to Arrival: none <Tomi Hernandez - Last Filed: 01/05/19 06:32> <Lakhwinder Ragsdale - Last Filed: 01/05/19 09:21> - General Chief Complaint: Chest Pain Stated Complaint: Chest Pain, SOB Time Seen by Provider: 01/05/19 03:58 - History of Present Illness Initial Comments: This patient is a 43-year-old man with history of ischemic cardiomyopathy, diabetes, who presents with chest pain going on for approximately 3 hours. The patient states that this it come on after an argument with his . He states that he was uncertain if it was just due to anxiety or could be removed cardiac related. Patient states she was also little short of breath and pain radiated towards his left arm. (Tomi Hernandez) - Related Data Home Medications Medication Instructions Recorded Confirmed Clopidogrel [Plavix] 75 mg PO QAM 12/03/17 01/05/19 Albuterol Inhaler [Ventolin Hfa 2 puff INHALATION RT-Q6H PRN 04/01/18 01/05/19 Inhaler] Pantoprazole [Protonix] 40 mg PO DAILY 04/01/18 01/05/19 Primidone [Mysoline] 100 mg PO BID 04/01/18 01/05/19 Aspirin EC [Ecotrin Low Dose] 81 mg PO DAILY 07/20/18 01/05/19 Ranolazine [Ranexa] 500 mg PO BID 11/06/18 01/05/19 Nitroglycerin Sl Tabs [Nitrostat] 0.4 mg SUBLINGUAL Q5M PRN 11/08/18 01/05/19 Tamsulosin HCl [Flomax] 0.4 mg PO DAILY 11/08/18 01/05/19 Morphine Sulfate 7.5 mg PO DAILY PRN 12/10/18 01/05/19 Rosuvastatin Calcium [Crestor] 40 mg PO DAILY 12/10/18 01/05/19 INSULIN ASPART (NovoLOG) [NovoLOG See Protocol SQ ACHS 07/31/19 08/14/19 (formulary)] Metoprolol Tartrate [Lopressor] 12.5 mg PO BID 01/01/19 01/05/19 Previous Rx's Medication Instructions Recorded DULoxetine HCL [Cymbalta] 60 mg PO BID capsule. 05/10/18 INSULIN ASPART (NovoLOG) [NovoLOG 16 unit SQ AC-TID vial 12/13/18 (formulary)] Insulin Glargine [Lantus] 10 units SQ HS #0 12/13/18 Furosemide [Lasix] 40 mg PO DAILY #30 tab 12/23/18 Allergies Allergy/AdvReac Type Severity Reaction Status Date / Time erythromycin base Allergy Severe Rash/Hives Verified 01/05/19 06:45 [Erythromycin Base] cephalexin monohydrate Allergy Unknown Rash/Hives Verified 01/05/19 06:45 [From Keflex] codeine Allergy Unknown Unknown Verified 01/05/19 06:45 meclizine Allergy Unknown Unknown Verified 01/05/19 06:45 Penicillins Allergy Unknown Rash/Hives Verified 01/05/19 06:45 shellfish derived Allergy Unknown Anaphylaxis Verified 01/05/19 06:45 Fish Containing Products Allergy Anaphylaxis Verified 01/05/19 06:45 [Fish] Iodinated Contrast- Oral and Allergy Anaphylaxis Verified 01/05/19 06:45 IV Dye naproxen AdvReac Unknown Compromises Verified 01/05/19 06:45 Kidney Function atorvastatin calcium AdvReac Myalgia Verified 01/05/19 06:45 [From Lipitor] hydrocodone [From [place]] AdvReac Rapid Verified 01/05/19 06:45 Heart Rate Review of Systems ROS Other: All systems not noted in ROS Statement are negative. Constitutional: Denies: fever, chills, weakness Respiratory: Reports: as per HPI, dyspnea. Denies: cough, wheezes, hemoptysis Cardiovascular: Reports: chest pain. Denies: palpitations, edema, syncope Gastrointestinal: Denies: abdominal pain, vomiting, diarrhea, melena, hematochezia Musculoskeletal: Denies: back pain Skin: Denies: rash Neurological: Denies: headache, weakness, numbness Psychiatric: Reports: anxiety <Tomi Heranndez - Last Filed: 01/05/19 06:32> ROS Other: All systems not noted in ROS Statement are negative. <Lakhwinder Ragsdale - Last Filed: 01/05/19 09:21> ROS Statement: Those systems with pertinent positive or pertinent negative responses have been documented in the HPI. EKG Findings - EKG Comments: EKG Findings:: The 12-lead ECG reveals a paced rhythm rate of 117 bpm. - EKG Results: EKG: interpreted by ERMD, normal axis <Tomi Hernandez - Last Filed: 01/05/19 06:32> Past Medical History Past Medical History: Asthma, Coronary Artery Disease (CAD), Chest Pain / Angina, Heart Failure, CVA/TIA, Diabetes Mellitus, Deep Vein Thrombosis (DVT), GERD/Reflux, Hyperlipidemia, Hypertension, Myocardial Infarction ([place]), Osteoarthritis (OA), Pneumonia, Skin Disorder, Sleep Apnea/CPAP/BIPAP Additional Past Medical History / Comment(s): multiple vessel CAD, ischemic cardiomyopathy, diabetic neuropathy bilateral hands and feet, hypertensive cardiovascular disease, SHELIA with no device, chronic gastritis, degenerative disc disease, chronic back pain, depression with hx of suicide attempts, gastroparesis, psoriasis, UTI, migraines, TIA, PUD, hiatal hernia, L rotator cuff tear, bronchitis, pseudoaneurysm L groin post procedure. 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 Date of Last Stent Placement:: 10/2018 Type of Cardiac Device: Biventricular Pacemaker, AICD Device Placement Date:: 09/19/15 Past Psychological History: Anxiety, Depression, PTSD Smoking Status: Never smoker Past Alcohol Use History: None Reported Past Drug Use History: None Reported - Past Family History Mother Family Medical History: Coronary Artery Disease (CAD), Myocardial Infarction ([place]) Additional Family Medical History / Comment(s): 7 [place] and faulty heart valve. Pt does not know the age when mother had her PA's. Father History Unknown: Yes Additional Family Medical History / Comment(s): Does not know who father is. Brother(s) Family Medical History: Cancer, Congestive Heart Failure (CHF), Myocardial Infarction ([place]) Additional Family Medical History / Comment(s): Parkinsons. Pt does not know at what age his brother had an PA. Patient's other brother has lung CA Patient has Family Medical History: No Reported History Additional Family Medical History / Comment(s): There is a strong family history for heart disease, hypertension, and diabetes. <Tomi Hernandez - Last Filed: 01/05/19 06:32> General Exam Limitations: no limitations General appearance: alert, in no apparent distress Head exam: Present: atraumatic, normocephalic Eye exam: Present: normal appearance. Absent: scleral icterus, conjunctival injection ENT exam: Present: normal oropharynx Neck exam: Present: normal inspection Respiratory exam: Present: normal lung sounds bilaterally. Absent: respiratory distress, wheezes, rales, rhonchi, stridor Cardiovascular Exam: Present: regular rate, normal rhythm, normal heart sounds. Absent: systolic murmur, diastolic murmur, rubs, gallop GI/Abdominal exam: Present: soft. Absent: distended, tenderness, guarding, rebound, rigid Extremities exam: Present: normal inspection, normal capillary refill. Absent: pedal edema, calf tenderness Back exam: Present: normal inspection. Absent: CVA tenderness (R), CVA tenderness (L) Neurological exam: Present: alert Skin exam: Present: warm, dry, intact, normal color. Absent: rash <Tomi Hernandez - Last Filed: 01/05/19 06:32> Course Vital Signs 01/05/19 01/05/19 01/05/19 03:37 05:26 06:39 Temperature 97.5 F L Pulse Rate 116 H 111 H 106 H Respiratory 20 18 18 Rate Blood Pressure 144/100 126/95 131/88 O2 Sat by Pulse 93 L 96 98 Oximetry 08/14/19 07:27 Temperature Pulse Rate 108 H Respiratory 18 Rate Blood Pressure 123/84 O2 Sat by Pulse 99 Oximetry Chest Pain MDM <Lakhwinder Ragsdale - Last Filed: 01/05/19 09:21> - [facility] Patient care signed out to me by previous shift physician Dr. Hernandez. Briefly, patient is a 43-year-old male with multiple comorbid conditions. Patient presents today with chest pain. Patient's past medical history of heart failure, myocardial infarction and coronary artery disease. Patient's clinical presentation is consistent with atypical chest pain with typical features. Patient's initial troponin is negative. Rest of his laboratory evaluation is unremarkable. Patient is well-appearing at bedside. Plan at sign out was to follow-up with second troponin and determine final disposition. Second troponin is patient's baseline. Patient reevaluated at bedside and found to be in stable medical condition. Patient clear for discharge. Patient told to follow-up with tray worker and primary care physician. Return parameters discussed. Patient agreeable with disposition. (Lakhwinder Ragsdale) Disposition <Tomi Hernandez - Last Filed: 01/05/19 06:32> Is patient prescribed a controlled substance at d/c from ED?: No Time of Disposition: 09:21 <Lakhwinder Ragsdale - Last Filed: 01/05/19 09:21> Clinical Impression: Chest pain Disposition: HOME SELF-CARE Condition: Good Instructions (If sedation given, give patient instructions): Chest Pain (ED) Referrals: Junie New MD [Primary Care Provider] - 1-2 days
[2019-01-05] MEDS ORDERED: HYDROcodone/APAP 7.5-325MG 1 EACH TAB PO ONE (06:23)
[2019-01-05 07:29] VITALS: PULSE 108
[2019-01-05 09:34] VITALS: BP 144/99
== END 2019-01-05 09:37 | disposition home or self-care (01) ==
LOC: EC 03:28
DX: I25.119 Atherosclerotic heart disease of native coronary artery with unspecified angina pectoris (principal); R06.02 Shortness of breath; M79.602 Pain in left arm; J45.909 Unspecified asthma, uncomplicated; I11.0 Hypertensive heart disease with heart failure; I50.9 Heart failure, unspecified; E11.42 Type 2 diabetes mellitus with diabetic polyneuropathy; K21.9 Gastro-esophageal reflux disease without esophagitis; E78.5 Hyperlipidemia, unspecified; I25.2 Old myocardial infarction; M19.90 Unspecified osteoarthritis, unspecified site; E11.43 Type 2 diabetes mellitus with diabetic autonomic (poly)neuropathy; K31.84 Gastroparesis; Z88.0 Allergy status to penicillin; Z88.1 Allergy status to other antibiotic agents; Z88.5 Allergy status to narcotic agent; Z88.6 Allergy status to analgesic agent; Z88.8 Allergy status to other drugs, medicaments and biological substances; Z91.013 Allergy to seafood; Z91.041 Radiographic dye allergy status; Z79.02 Long term (current) use of antithrombotics/antiplatelets; Z79.4 Long term (current) use of insulin; Z79.82 Long term (current) use of aspirin; Z79.899 Other long term (current) drug therapy; Z86.14 Personal history of Methicillin resistant Staphylococcus aureus infection; Z86.73 Personal history of transient ischemic attack (TIA), and cerebral infarction without residual deficits; Z86.718 Personal history of other venous thrombosis and embolism; Z95.810 Presence of automatic (implantable) cardiac defibrillator; Z95.5 Presence of coronary angioplasty implant and graft; Z82.49 Family history of ischemic heart disease and other diseases of the circulatory system
CPT/HCPCS: 36415; 93005; 80053; 83735; 84484; 85025; 71046; 99285; 96374; J1170

== ENCOUNTER 2019-01-09 18:44 | Emergency (ER) | payer MEDICARE, OTHER ==
[2019-01-09 18:55] VITALS: TEMP 98.2
--- NOTE | 2019-01-09 19:40 | XR ---
EXAMINATION TYPE: XR chest 2V DATE OF EXAM: 01/09/2019 COMPARISON: 01/05/2019 HISTORY: Chest pain TECHNIQUE: Frontal and lateral views of the chest are obtained. FINDINGS: There is 6 x 4 cm area of airspace infiltrate and pleural thickening in the right midlung. This is at the superior aspect of the major fissure. Heart is enlarged. There is no heart failure. T here is slight blunting right costophrenic angle. There is a left axillary pacemaker. IMPRESSION: There is pleural thickening and infiltrate in the right midlung increased compared to ol d exam. There is slight improved aeration right lower lung field compared to old exam. Follow-up jennifer mmended show clearing.
--- NOTE | 2019-01-09 19:44 | ED ---
General Adult HPI - General Chief complaint: Chest Pain Stated complaint: CHEST PAIN, PRESSURE Time Seen by Provider: 01/09/19 18:48 Source: patient Mode of arrival: wheelchair Limitations: no limitations - History of Present Illness Initial comments: Dictation was produced using [employer] dictation software. please excuse any grammatical, word or spelling errors. Chief Complaint: 43-year-old male presents with chest pain shortness of breath. History of Present Illness: A 43-year-old male he is well-known to emergency dep artment for multiple visitations for multiple cardiopulmonary complaints. He was just discharged from [facility] for shortness of breath. Patient states he was admitted for a couple days. He states he had a thoracentesis performed for pleural effusion. Patient reports that he was also diagnosed with a pulmonary embolus. He was started on eliquis. Patient feels like she was discharged to early from [facility]. He states that he was trying to tell the medical staff that he was having chest pain however he feels as though he was ignored. After being discharged from [facility] he decided come to our emergency department. 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 Denies any coughing. No runny nose. No sore throat. He states he has some chest pain that encompasses his entire anterior chest. Denies any shortness of breath or lower extremities symptoms. The ROS documented in this emergency department record has been reviewed and confirmed by me. Those systems with pertinent positive or negative responses have been documented in the HPI. All other systems are other negative and/or noncontributory. PHYSICAL EXAM: General Impression: Alert and oriented x3, not in acute distress HEENT: Normocephalic atraumatic, extra-ocular movements intact, pupils equal and reactive to light bilaterally, mucous membranes moist. Cardiovascular: Heart regular rate and rhythm, S1&S2 audible, no murmurs, rubs or gallops Chest: Lungs clear to auscultation bilaterally, no rhonchi, no wheeze, no rales Abdomen: Bowel sounds present, abdomen soft, non-tender, non-distended, no organomegaly Musculoskeletal: Pulses present and equal in all extremities, no peripheral padmini a Motor: no focal deficits noted Neurological: CN II-XII grossly intact, no focal motor or sensory deficits noted Skin: Intact with no visualized rashes Psych: Normal affect and mood ED course: 43-year-old male presents today with concerns of chest pain. He was just discharged from [facility] for similar complaint however feels as though they did not address his chest pain symptoms. As upon arrival shows heart rate of 110, worse vital signs within acceptable limits. We are currently getting records from [facility] for his most recent hospital stay.An attempt was made to obtain medical records from [facility]. My secretary specialist called down to [facility] and was told that they were not able to get medical records at this time. He didn't have to wait till tomorrow as what she was told., Laboratory evaluation was obtained. CBC is baseline for him. Coag panel is baseline for him. Patient moves has a sodium 125 potassium 5.2. There is no EKG changes noted. Rest of labs unremarkable. Troponins negative. Patient has significant hyponatremia. I believe he would benefit from a short inpatient stay with repletion of his sodium. Chest x-ray shows pleural thickening and infiltrate in the right midlung compared to previous exam. Patient denies any coughing. Denies any infectious symptoms. Clinically this does not represent pneumonia. Patient be admitted for hyponatremia. She given intravenous fluids. EKG interpretation: Ventricular rate on O2, sinus tachycardia, MT interval 172, QRS 114, QTc 479. No MT prolongation, no QTC prolongation, no ST or T-wave changes noted. EKG compared to January 05 2019 showing no changes. Overall, this EKG is unremarkable - Related Data Home Medications Medication Instructions Recorded Confirmed Clopidogrel [Plavix] 75 mg PO QAM 12/03/17 01/09/19 Albuterol Inhaler [Ventolin Hfa 2 puff INHALATION RT-Q6H PRN 04/01/18 01/09/19 Inhaler] Pantoprazole [Protonix] 40 mg PO DAILY 04/01/18 01/09/19 Primidone [Mysoline] 100 mg PO BID 04/01/18 01/09/19 Aspirin EC [Ecotrin Low Dose] 81 mg PO DAILY 07/20/18 01/09/19 Ranolazine [Ranexa] 500 mg PO BID 11/06/18 01/09/19 Nitroglycerin Sl Tabs [Nitrostat] 0.4 mg SUBLINGUAL Q5M PRN 11/08/18 01/09/19 Tamsulosin HCl [Flomax] 0.4 mg PO DAILY 11/08/18 01/09/19 Morphine Sulfate 7.5 mg PO DAILY PRN 12/10/18 01/09/19 Rosuvastatin Calcium [Crestor] 40 mg PO DAILY 12/10/18 01/09/19 INSULIN ASPART (NovoLOG) [NovoLOG See Protocol SQ ACHS 12/22/18 01/09/19 (formulary)] Metoprolol Tartrate [Lopressor] 12.5 mg PO BID 01/01/19 01/09/19 Previous Rx's Medication Instructions Recorded DULoxetine HCL [Cymbalta] 60 mg PO BID capsule. 05/10/18 INSULIN ASPART (NovoLOG) [NovoLOG 16 unit SQ AC-TID vial 12/13/18 (formulary)] Insulin Glargine [Lantus] 10 units SQ HS #0 12/13/18 Furosemide [Lasix] 40 mg PO DAILY #30 tab 12/23/18 Allergies Allergy/AdvReac Type Severity Reaction Status Date / Time erythromycin base Allergy Severe Rash/Hives Verified 01/09/19 19:18 [Erythromycin Base] cephalexin monohydrate Allergy Unknown Rash/Hives Verified 01/09/19 19:18 [From Keflex] codeine Allergy Unknown Unknown Verified 01/09/19 19:18 meclizine Allergy Unknown Unknown Verified 01/09/19 19:18 Penicillins Allergy Unknown Rash/Hives Verified 01/09/19 19:18 shellfish derived Allergy Unknown Anaphylaxis Verified 01/09/19 19:18 Fish Containing Products Allergy Anaphylaxis Verified 01/09/19 19:18 [Fish] Iodinated Contrast- Oral and Allergy Anaphylaxis Verified 01/09/19 19:18 IV Dye naproxen AdvReac Unknown Compromises Verified 01/09/19 19:18 Kidney Function atorvastatin calcium AdvReac Myalgia Verified 01/09/19 19:18 [From Lipitor] hydrocodone [From [place]] AdvReac Rapid Verified 01/09/19 19:18 Heart Rate Review of Systems ROS Statement: Those systems with pertinent positive or pertinent negative responses have been documented in the HPI. ROS Other: All systems not noted in ROS Statement are negative. Past Medical History Past Medical History: Asthma, Coronary Artery Disease (CAD), Chest Pain / Angina, Heart Failure, CVA/TIA, Diabetes Mellitus, Deep Vein Thrombosis (DVT), GERD/Reflux, Hyperlipidemia, Hypertension, Myocardial Infarction ([place]), [place] teoarthritis (OA), Pneumonia, Skin Disorder, Sleep Apnea/CPAP/BIPAP Additional Past Medical History / Comment(s): multiple vessel CAD, ischemic cardiomyopathy, diabetic neuropathy bilateral hands and feet, hypertensive cardiovascular disease, SHELIA with no device, chronic gastritis, degenerative disc disease, chronic back pain, depression with hx of suicide attempts, gastrop aresis, psoriasis, UTI, migraines, TIA, PUD, hiatal hernia, L rotator cuff tear, bronchitis, pseudoaneurysm L groin post procedure. 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 Date of Last Stent Placement:: 10/2018 Type of Cardiac Device: Biventricular Pacemaker, AICD Device Placement Date:: 09/19/15 Past Psychological History: Anxiety, Depression, PTSD Smoking Status: Never smoker Past Alcohol Use History: None Reported Past Drug Use History: None Reported - Past Family History Mother Family Medical History: Coronary Artery Disease (CAD), Myocardial Infarction ([place]) Additional Family Medical History / Comment(s): 7 [place] and faulty heart valve. Pt does not know the age when mother had her [place]'s. Father History Unknown: Yes Additional Family Medical History / Comment(s): Does not know who father is. Brother(s) Family Medical History: Cancer, Congestive Heart Failure (CHF), Myocardial Infarction ([place]) Additional Family Medical History / Comment(s): Parkinsons. Pt does not know at what age his brother had an [place]. Patient's other brother has lung CA Patient has Family Medical History: No Reported History Additional Family Medical History / Comment(s): There is a strong family history for heart disease, hypertension, and diabetes. General Exam Limitations: no limitations Course Vital Signs 01/09/19 01/09/19 01/09/19 18:52 19:00 19:41 Temperature 98.2 F Pulse Rate 110 H 102 H Pulse Rate [ 102 H Concrete Worker ] Respiratory 20 20 Rate Blood Pressure 124/80 124/84 O2 Sat by Pulse 100 96 Oximetry 01/09/19 01/09/19 20:31 21:28 Temperature Pulse Rate 101 H 102 H Pulse Rate [ Concrete Worker ] Respiratory 18 18 Rate Blood Pressure 121/98 107/71 O2 Sat by Pulse 96 97 Oximetry Medical Decision Making - Lab Data Result diagrams: 01/09/19 19:37 01/09/19 19:37 Lab Results 01/09/19 01/09/19 01/09/19 Range/Units 19:37 19:37 19:37 WBC 8.3 (3.8-10.6) k/uL RBC 4.18 L (4.30-5.90) m/uL Hgb 9.8 L (13.0-17.5) gm/dL Hct 32.8 L (39.0-53.0) % MCV 78.5 L (80.0-100.0) fL MCH 23.5 L (25.0-35.0) pg MCHC 29.9 L (31.0-37.0) g/dL RDW 17.5 H (11.5-15.5) % Plt Count 297 (150-450) k/uL Neutrophils % 80 % Lymphocytes % 12 % Monocytes % 6 % Eosinophils % 0 % Basophils % 1 % Neutrophils # 6.6 (1.3-7.7) k/uL Lymphocytes # 1.0 (1.0-4.8) k/uL Monocytes # 0.5 (0-1.0) k/uL Eosinophils # 0.0 (0-0.7) k/uL Basophils # 0.1 (0-0.2) k/uL Manual Slide Review Performed Polychromasia Present Hypochromasia Marked Poikilocytosis Slight Anisocytosis Slight Microcytosis Slight PT 15.2 H (9.0-12.0) sec INR 1.5 H (<1.2) APTT 25.0 (22.0-30.0) sec Sodium 125 L (137-145) mmol/L Potassium 5.2 H (3.5-5.1) mmol/L Chloride 92 L (98-107) mmol/L Carbon Dioxide 20 L (22-30) mmol/L Anion Gap 13 mmol/L BUN 45 H (9-20) mg/dL Creatinine 1.70 H (0.66-1.25) mg/dL Est GFR (CKD-EPI)AfAm 56 (>60 ml/min/1.73 sqM) Est GFR (CKD-EPI)NonAf 49 (>60 ml/min/1.73 sqM) Glucose 264 H (74-99) mg/dL Calcium 8.5 (8.4-10.2) mg/dL Magnesium 1.6 (1.6-2.3) mg/dL Total Bilirubin 1.9 H (0.2-1.3) mg/dL AST 40 (17-59) U/L ALT 42 (21-72) U/L Alkaline Phosphatase 152 H (38-126) U/L Troponin I (0.000-0.034) ng/mL Total Protein 5.5 L (6.3-8.2) g/dL Albumin 3.0 L (3.5-5.0) g/dL 01/09/19 Range/Units 19:37 WBC (3.8-10.6) k/uL RBC (4.30-5.90) m/uL Hgb (13.0-17.5) gm/dL Hct (39.0-53.0) % MCV (80.0-100.0) fL MCH (25.0-35.0) pg MCHC (31.0-37.0) g/dL RDW (11.5-15.5) % Plt Count (150-450) k/uL Neutrophils % % Lymphocytes % % Monocytes % % Eosinophils % % Basophils % % Neutrophils # (1.3-7.7) k/uL Lymphocytes # (1.0-4.8) k/uL Monocytes # (0-1.0) k/uL Eosinophils # (0-0.7) k/uL Basophils # (0-0.2) k/uL Manual Slide Review Polychromasia Hypochromasia Poikilocytosis Anisocytosis Microcytosis PT (9.0-12.0) sec INR (<1.2) APTT (22.0-30.0) sec Sodium (137-145) mmol/L Potassium (3.5-5.1) mmol/L Chloride (98-107) mmol/L Carbon Dioxide (22-30) mmol/L Anion Gap mmol/L BUN (9-20) mg/dL Creatinine (0.66-1.25) mg/dL Est GFR (CKD-EPI)AfAm (>60 ml/min/1.73 sqM) Est GFR (CKD-EPI)NonAf (>60 ml/min/1.73 sqM) Glucose (74-99) mg/dL Calcium (8.4-10.2) mg/dL Magnesium (1.6-2.3) mg/dL Total Bilirubin (0.2-1.3) mg/dL AST (17-59) U/L ALT (21-72) U/L Alkaline Phosphatase (38-126) U/L Troponin I <0.012 (0.000-0.034) ng/mL Total Protein (6.3-8.2) g/dL Albumin (3.5-5.0) g/dL Disposition Clinical Impression: Hyponatremia Disposition: ADMITTED IP TO THIS [facility] Condition: Fair Referrals: Junie New MD [Primary Care Provider] - 1-2 days Decision Time: 21:40
[2019-01-09 19:57] LABS: INR 1.5 (<1.2)
[2019-01-09 19:58] LABS: Prothrombin Time 15.2 sec (9.0-12.0)
[2019-01-09 20:03] LABS: Calcium 8.5 mg/dL (8.4-10.2); Magnesium 1.6 mg/dL (1.6-2.3); Potassium 5.2 mmol/L (3.5-5.1); Total Bilirubin 1.9 mg/dL (0.2-1.3); Total Protein 5.5 g/dL (6.3-8.2)
[2019-01-09 20:19] LABS: Anisocytosis Slight; Basophils # (A) 0.1 k/uL (0-0.2); Basophils % (A) 1 %; Eosinophils % (A) 0 %; HCT 32.8 % (39.0-53.0); HGB 9.8 gm/dL (13.0-17.5); Hypochromasia Marked; Lymphocytes % (A) 12 %; MCH 23.5 pg (25.0-35.0); MCHC 29.9 g/dL (31.0-37.0); MCV 78.5 fL (80.0-100.0); Mean Platelet Volume 7.1; Microcytosis Slight; Monocytes # (A) 0.5 k/uL (0-1.0); Monocytes % (A) 6 %; Neutrophils # (A) 6.6 k/uL (1.3-7.7); Neutrophils % (A) 80 %; Platelet Count 297 k/uL (150-450); Poikilocytosis Slight; RBC 4.18 m/uL (4.30-5.90); RDW 17.5 % (11.5-15.5); WBC 8.3 k/uL (3.8-10.6)
[2019-01-09 20:33] VITALS: RESP 18
[2019-01-09 20:51] LABS: Polychromasia Present
[2019-01-09] MEDS ORDERED: SODIUM CHLORIDE 0.9% 500 ML 500 ML IV STA (21:02)
[2019-01-09] MEDS ORDERED: ONDANSETRON 4 MG/2 ML VIAL IVP STA (21:25)
[2019-01-09] MEDS ORDERED: HYDROcodone/APAP 5-325MG 1 EACH TAB PO STA (21:25)
[2019-01-09 21:28] VITALS: BP 107/71; PULSE 102
[2019-01-09] MEDS ORDERED: ACETAMINOPHEN TAB 325 MG TAB PO PRN (22:50)
[2019-01-09] MEDS ORDERED: NALOXONE 0.4 MG/ML 1 ML VIAL IV PRN (22:50)
[2019-01-09] MEDS ORDERED: ALBUTEROL NEBULIZED 2.5 MG/3 ML INHALATION PRN (22:51)
[2019-01-09] MEDS ORDERED: SODIUM CHLORIDE 0.9% 1,000 ML IV SCH (23:00)
--- NOTE | 2019-01-09 23:12 | ED ---
Medical Decision Making - Lab Data Result diagrams: 01/09/19 19:37 01/09/19 19:37 Lab Results 01/09/19 01/09/19 01/09/19 Range/Units 19:37 19:37 19:37 WBC 8.3 (3.8-10.6) k/uL RBC 4.18 L (4.30-5.90) m/uL Hgb 9.8 L (13.0-17.5) gm/dL Hct 32.8 L (39.0-53.0) % MCV 78.5 L (80.0-100.0) fL MCH 23.5 L (25.0-35.0) pg MCHC 29.9 L (31.0-37.0) g/dL RDW 17.5 H (11.5-15.5) % Plt Count 297 (150-450) k/uL Neutrophils % 80 % Lymphocytes % 12 % Monocytes % 6 % Eosinophils % 0 % Basophils % 1 % Neutrophils # 6.6 (1.3-7.7) k/uL Lymphocytes # 1.0 (1.0-4.8) k/uL Monocytes # 0.5 (0-1.0) k/uL Eosinophils # 0.0 (0-0.7) k/uL Basophils # 0.1 (0-0.2) k/uL Manual Slide Review Performed Polychromasia Present Hypochromasia Marked Poikilocytosis Slight Anisocytosis Slight Microcytosis Slight PT 15.2 H (9.0-12.0) sec INR 1.5 H (<1.2) APTT 25.0 (22.0-30.0) sec Sodium 125 L (137-145) mmol/L Potassium 5.2 H (3.5-5.1) mmol/L Chloride 92 L (98-107) mmol/L Carbon Dioxide 20 L (22-30) mmol/L Anion Gap 13 mmol/L BUN 45 H (9-20) mg/dL Creatinine 1.70 H (0.66-1.25) mg/dL Est GFR (CKD-EPI)AfAm 56 (>60 ml/min/1.73 sqM) Est GFR (CKD-EPI)NonAf 49 (>60 ml/min/1.73 sqM) Glucose 264 H (74-99) mg/dL Calcium 8.5 (8.4-10.2) mg/dL Magnesium 1.6 (1.6-2.3) mg/dL Total Bilirubin 1.9 H (0.2-1.3) mg/dL AST 40 (17-59) U/L ALT 42 (21-72) U/L Alkaline Phosphatase 152 H (38-126) U/L Troponin I (0.000-0.034) ng/mL Total Protein 5.5 L (6.3-8.2) g/dL Albumin 3.0 L (3.5-5.0) g/dL 01/09/19 Range/Units 19:37 WBC (3.8-10.6) k/uL RBC (4.30-5.90) m/uL Hgb (13.0-17.5) gm/dL Hct (39.0-53.0) % MCV (80.0-100.0) fL MCH (25.0-35.0) pg MCHC (31.0-37.0) g/dL RDW (11.5-15.5) % Plt Count (150-450) k/uL Neutrophils % % Lymphocytes % % Monocytes % % Eosinophils % % Basophils % % Neutrophils # (1.3-7.7) k/uL Lymphocytes # (1.0-4.8) k/uL Monocytes # (0-1.0) k/uL Eosinophils # (0-0.7) k/uL Basophils # (0-0.2) k/uL Manual Slide Review Polychromasia Hypochromasia Poikilocytosis Anisocytosis Microcytosis PT (9.0-12.0) sec INR (<1.2) APTT (22.0-30.0) sec Sodium (137-145) mmol/L Potassium (3.5-5.1) mmol/L Chloride (98-107) mmol/L Carbon Dioxide (22-30) mmol/L Anion Gap mmol/L BUN (9-20) mg/dL Creatinine (0.66-1.25) mg/dL Est GFR (CKD-EPI)AfAm (>60 ml/min/1.73 sqM) Est GFR (CKD-EPI)NonAf (>60 ml/min/1.73 sqM) Glucose (74-99) mg/dL Calcium (8.4-10.2) mg/dL Magnesium (1.6-2.3) mg/dL Total Bilirubin (0.2-1.3) mg/dL AST (17-59) U/L ALT (21-72) U/L Alkaline Phosphatase (38-126) U/L Troponin I <0.012 (0.000-0.034) ng/mL Total Protein (6.3-8.2) g/dL Albumin (3.5-5.0) g/dL Disposition Clinical Impression: Hyponatremia, Chest pain Disposition: Left Against Medical Advice Condition: Fair
[2019-01-10] MEDS ORDERED: INSULIN ASPART (NovoLOG) 100 UNIT/ML VIAL SQ SCH (07:30)
[2019-01-10] MEDS ORDERED: METOPROLOL TARTRATE 25 MG TAB PO SCH (09:00)
[2019-01-10] MEDS ORDERED: PRIMIDONE 50 MG TAB PO SCH (09:00)
[2019-01-10] MEDS ORDERED: RANOLAZINE 500 MG TAB.ER.12H PO SCH (09:00)
[2019-01-10] MEDS ORDERED: ASPIRIN 81 MG PO SCH (09:00)
[2019-01-10] MEDS ORDERED: DULoxetine HCL 60 MG CAPSULE.DR PO SCH (09:00)
[2019-01-10] MEDS ORDERED: Rosuvastatin Calcium [Crestor] 40 MG PO SCH (09:00)
[2019-01-10] MEDS ORDERED: PANTOPRAZOLE 40 MG TABLET PO SCH (09:00)
[2019-01-10] MEDS ORDERED: FUROSEMIDE 20 MG TAB PO SCH (09:00)
[2019-01-10] MEDS ORDERED: CLOPIDOGREL 75 MG TAB PO SCH (09:00)
[2019-01-10] MEDS ORDERED: INSULIN DETEMIR (LEVEMIR) 100 UNIT/ML SYR SQ SCH (21:00)
== END 2019-01-09 23:24 | disposition left against medical advice (07) ==
LOC: EC 18:44 → 4SSUR 22:51 → UNDOADMIN 22:51 → EC 23:24
DX: E87.1 Hypo-osmolality and hyponatremia (principal); R07.9 Chest pain, unspecified; J45.909 Unspecified asthma, uncomplicated; I25.119 Atherosclerotic heart disease of native coronary artery with unspecified angina pectoris; I11.0 Hypertensive heart disease with heart failure; I50.9 Heart failure, unspecified; E11.42 Type 2 diabetes mellitus with diabetic polyneuropathy; E11.43 Type 2 diabetes mellitus with diabetic autonomic (poly)neuropathy; K31.84 Gastroparesis; K21.9 Gastro-esophageal reflux disease without esophagitis; E78.5 Hyperlipidemia, unspecified; I25.2 Old myocardial infarction; M19.90 Unspecified osteoarthritis, unspecified site; Z88.0 Allergy status to penicillin; Z88.1 Allergy status to other antibiotic agents; Z88.5 Allergy status to narcotic agent; Z88.6 Allergy status to analgesic agent; Z88.8 Allergy status to other drugs, medicaments and biological substances; Z91.013 Allergy to seafood; Z91.041 Radiographic dye allergy status; Z79.4 Long term (current) use of insulin; Z79.02 Long term (current) use of antithrombotics/antiplatelets; Z79.82 Long term (current) use of aspirin; Z79.899 Other long term (current) drug therapy; Z86.73 Personal history of transient ischemic attack (TIA), and cerebral infarction without residual deficits; Z86.718 Personal history of other venous thrombosis and embolism; Z86.69 Personal history of other diseases of the nervous system and sense organs; Z86.14 Personal history of Methicillin resistant Staphylococcus aureus infection; Z95.5 Presence of coronary angioplasty implant and graft; Z95.0 Presence of cardiac pacemaker; Z82.49 Family history of ischemic heart disease and other diseases of the circulatory system; Z53.20 Procedure and treatment not carried out because of patient's decision for unspecified reasons
CPT/HCPCS: 36415; 93005; 80053; 83735; 84484; 85025; 85610; 85730; 71046; 99285; 96374; 96361 ×2; J2405

== ENCOUNTER 2019-02-14 01:46 | Emergency (ER) | payer MEDICARE, OTHER ==
[2019-02-14 01:51] VITALS: RESP 18; TEMP 97.8
[2019-02-14] MEDS ORDERED: HEPARIN SODIUM,PORCINE 5,000 UNIT/ML 1 ML VIAL IV STA (02:03)
[2019-02-14] MEDS ORDERED: ASPIRIN 81 MG PO STA (02:03)
--- NOTE | 2019-02-14 02:08 | ED ---
Chest Pain HPI - General Chief Complaint: Chest Pain Stated Complaint: palpitations Time Seen by Provider: 02/14/19 02:01 Source: patient Mode of arrival: ambulatory Limitations: no limitations - History of Present Illness Initial Comments: Ti is a 43-year-old male with extensive past medical history most significant for multivessel coronary artery disease, advanced heart failure, multiple MIs in the past, cardiac arrest in November. Patient presents to the emergency department today for evaluation of pressure-like chest pain. Patient reports pain began earlier in the evening, is pressure-like in nature. Recently admitted to the [facility] and discharged . He felt good over the weekend but developed pain this evening which prompted him to return to the emergency department for reevaluation. - Related Data Home Medications Medication Instructions Recorded Confirmed Clopidogrel [Plavix] 75 mg PO QAM 12/03/17 01/09/19 Albuterol Inhaler [Ventolin Hfa 2 puff INHALATION RT-Q6H PRN 04/01/18 01/09/19 Inhaler] Pantoprazole [Protonix] 40 mg PO DAILY 04/01/18 01/09/19 Primidone [Mysoline] 100 mg PO BID 04/01/18 01/09/19 Aspirin EC [Ecotrin Low Dose] 81 mg PO DAILY 07/20/18 01/09/19 Ranolazine [Ranexa] 500 mg PO BID 11/06/18 01/09/19 Nitroglycerin Sl Tabs [Nitrostat] 0.4 mg SUBLINGUAL Q5M PRN 11/08/18 01/09/19 Tamsulosin HCl [Flomax] 0.4 mg PO DAILY 11/08/18 01/09/19 Morphine Sulfate 7.5 mg PO DAILY PRN 12/10/18 01/09/19 Rosuvastatin Calcium [Crestor] 40 mg PO DAILY 12/10/18 01/09/19 INSULIN ASPART (NovoLOG) [NovoLOG See Protocol SQ ACHS 12/22/18 01/09/19 (formulary)] Metoprolol Tartrate [Lopressor] 12.5 mg PO BID 01/01/19 01/09/19 Previous Rx's Medication Instructions Recorded DULoxetine HCL [Cymbalta] 60 mg PO BID capsule. 05/10/18 INSULIN ASPART (NovoLOG) [NovoLOG 16 unit SQ AC-TID vial 12/13/18 (formulary)] Insulin Glargine [Lantus] 10 units SQ HS #0 12/13/18 Furosemide [Lasix] 40 mg PO DAILY #30 tab 12/23/18 Allergies Allergy/AdvReac Type Severity Reaction Status Date / Time erythromycin base Allergy Severe Rash/Hives Verified 02/14/19 01:53 [Erythromycin Base] cephalexin monohydrate Allergy Unknown Rash/Hives Verified 02/14/19 01:53 [From Keflex] codeine Allergy Unknown Unknown Verified 02/14/19 01:53 meclizine Allergy Unknown Unknown Verified 02/14/19 01:53 Penicillins Allergy Unknown Rash/Hives Verified 02/14/19 01:53 shellfish derived Allergy Unknown Anaphylaxis Verified 02/14/19 01:53 Fish Containing Products Allergy Anaphylaxis Verified 02/14/19 01:53 [Fish] Iodinated Contrast- Oral and Allergy Anaphylaxis Verified 02/14/19 01:53 IV Dye naproxen AdvReac Unknown Compromises Verified 02/14/19 01:53 Kidney Function atorvastatin calcium AdvReac Myalgia Verified 02/14/19 01:53 [From Lipitor] hydrocodone [From [place]] AdvReac Rapid Verified 02/14/19 01:53 Heart Rate Review of Systems ROS Statement: Those systems with pertinent positive or pertinent negative responses have been documented in the HPI. ROS Other: All systems not noted in ROS Statement are negative. EKG Findings - EKG Comments: EKG Findings:: EKG was obtained due to complaint of chest pain, EKG obtained at 2 AM, rate is 107 rhythm is paced, rightward axis, normal intervals, [place] 160, QRS 90, QTC 405. There are ST depressions in lead [address] elevations, when compared to previous EKGs is no significant change in morphology. Past Medical History Past Medical History: Asthma, Coronary Artery Disease (CAD), Chest Pain / Angina, Heart Failure, CVA/TIA, Diabetes Mellitus, Deep Vein Thrombosis (DVT), GERD/Reflux, Hyperlipidemia, Hypertension, Myocardial Infarction ([place]), Osteoarthritis (OA), Pneumonia, Skin Disorder, Sleep Apnea/CPAP/BIPAP Additional Past Medical History / Comment(s): multiple vessel CAD, ischemic cardiomyopathy, diabetic neuropathy bilateral hands and feet, hypertensive cardiovascular disease, SHELIA with no device, chronic gastritis, degenerative disc disease, chronic back pain, depression with hx of suicide attempts, gastroparesis, psoriasis, UTI, migraines, TIA, PUD, hiatal hernia, L rotator cuff tear, bronchitis, pseudoaneurysm L groin post procedure. 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 Date of Last Stent Placement:: 10/2018 Type of Cardiac Device: Biventricular Pacemaker, AICD Device Placement Date:: 09/19/15 Past Psychological History: Anxiety, Depression, PTSD Smoking Status: Never smoker Past Alcohol Use History: None Reported Past Drug Use History: None Reported - Past Family History Mother Family Medical History: Coronary Artery Disease (CAD), Myocardial Infarction ([place]) Additional Family Medical History / Comment(s): 7 [place] and faulty heart valve. Pt does not know the age when mother had her OK's. Father History Unknown: Yes Additional Family Medical History / Comment(s): Does not know who father is. Brother(s) Family Medical History: Cancer, Congestive Heart Failure (CHF), Myocardial Infarction ([place]) Additional Family Medical History / Comment(s): Parkinsons. Pt does not know at what age his brother had an OK. Patient's other brother has lung CA Patient has Family Medical History: No Reported History Additional Family Medical History / Comment(s): There is a strong family history for heart disease, hypertension, and diabetes. General Exam - General Exam Comments Initial Comments: Physical Exam GENERAL: Chronically ill appearing, appears much older than stated age HENT: Normocephalic, Atraumatic. EYES: PERRL, EOMI PULMONARY: Unlabored respirations. No audible rales rhonchi or wheezing was noted. CARDIOVASCULAR: Tachy, regular, warm and well perfused extremities ABDOMEN: Obese Non-tender No pulsatile masses SKIN: Skin is clear with no lesions or rashes and otherwise unremarkable. Multiple tattoos : Deferred NEUROLOGIC: Patient is alert and oriented x3. Moving all extremities spontaneously MUSCULOSKELETAL: Normal extremities with adequate strength and full range of motion. No lower extremity swelling or edema. No calf tenderness. PSYCHIATRIC: Normal psychiatric evaluation. Limitations: no limitations Course Vital Signs 02/14/19 02/14/19 02/14/19 01:48 02:19 03:39 Temperature 97.8 F Pulse Rate 106 H 105 H Respiratory 18 18 Rate Blood Pressure 101/64 119/78 120/85 O2 Sat by Pulse 99 98 98 Oximetry Chest Pain [facility] Patient was seen and evaluated immediately upon arrival emergency room in excellent history is obtained from the patient EKG was obtained, EKG with ST depressions no obvious ST elevations. EKG results were discussed with cardiology on-call Dr. Salazar who is very familiar with this patient he recommends medical management of the patient, no catheterization intervention Labs and chest x-ray were obtained noted to be hyperglycemic, insulin sliding scale was ordered Troponin mildly elevated at 0.038 Patient will be transferred to [facility] Patient care discussed with Dr Abarca at [facility] who accepts transfer Disposition Clinical Impression: NSTEMI (non-ST elevated myocardial infarction) Disposition: OTHER INSTITUTION NOT DEFINED Referrals: Junie New MD [Primary Care Provider] - 1-2 days - Out of Hospital Transfer - Req. Specs Out of Hospital Transfer - Requested Specifics: Other Emergency Center ([facility])
[2019-02-14] MEDS ORDERED: HEPARIN SOD,PORK IN 0.45% NACL 25,000 UNIT in 0.45% NACL 1 250ML.BAG IV SCH (02:15)
[2019-02-14 02:39] LABS: Anisocytosis Moderate; Basophils # (A) 0.1 k/uL (0-0.2); Basophils % (A) 1 %; Eosinophils # (A) 0.1 k/uL (0-0.7); Eosinophils % (A) 1 %; HGB 10.7 gm/dL (13.0-17.5); Hypochromasia Moderate; Lymphocytes # (A) 1.4 k/uL (1.0-4.8); Lymphocytes % (A) 18 %; MCH 25.5 pg (25.0-35.0); MCHC 31.4 g/dL (31.0-37.0); MCV 81.3 fL (80.0-100.0); Mean Platelet Volume 7.5; Microcytosis Slight; Monocytes # (A) 0.4 k/uL (0-1.0); Monocytes % (A) 5 %; Neutrophils # (A) 5.3 k/uL (1.3-7.7); Neutrophils % (A) 73 %; Platelet Count 242 k/uL (150-450); RBC 4.19 m/uL (4.30-5.90); RDW 22.6 % (11.5-15.5); WBC 7.3 k/uL (3.8-10.6)
[2019-02-14 02:48] LABS: Partial Thromboplastin Time 22.4 sec (22.0-30.0); Prothrombin Time 10.7 sec (9.0-12.0)
--- NOTE | 2019-02-14 02:51 | XR ---
EXAMINATION TYPE: XR chest 2V DATE OF EXAM: 02/14/2019 COMPARISON: 01/09/2019 HISTORY: Chest pain TECHNIQUE: Frontal and lateral views of the chest are obtained. FINDINGS: There is no heart failure nor confluent pneumonic infiltrate. Costophrenic angles are leonel r. There is a left axillary pacemaker. Bony thorax is intact. IMPRESSION: No active cardiopulmonary disease. There is clearing of right upper lobe pneumonia and a telectasis compared to old exam.
[2019-02-14 03:00] LABS: Albumin 3.8 g/dL (3.5-5.0); Calcium 10.1 mg/dL (8.4-10.2); Magnesium 1.5 mg/dL (1.6-2.3); Potassium 4.7 mmol/L (3.5-5.1); Total Bilirubin 0.7 mg/dL (0.2-1.3); Total Protein 6.3 g/dL (6.3-8.2)
[2019-02-14] MEDS ORDERED: MORPHINE SULFATE 4 MG/ML SYRINGE IVP STA (03:32)
[2019-02-14 03:40] VITALS: BP 120/85; PULSE 105
[2019-02-14] MEDS ORDERED: INSULIN ASPART (NovoLOG) 100 UNIT/ML VIAL SQ SCH (07:30)
== END 2019-02-14 04:15 | disposition other institution (70) ==
LOC: EC 01:46
DX: I21.4 Non-ST elevation (NSTEMI) myocardial infarction (principal); J45.909 Unspecified asthma, uncomplicated; I25.10 Atherosclerotic heart disease of native coronary artery without angina pectoris; I11.0 Hypertensive heart disease with heart failure; I50.9 Heart failure, unspecified; K21.9 Gastro-esophageal reflux disease without esophagitis; I25.5 Ischemic cardiomyopathy; I25.2 Old myocardial infarction; E78.5 Hyperlipidemia, unspecified; G47.30 Sleep apnea, unspecified; E11.43 Type 2 diabetes mellitus with diabetic autonomic (poly)neuropathy; K31.84 Gastroparesis; F32.9 Major depressive disorder, single episode, unspecified; E11.40 Type 2 diabetes mellitus with diabetic neuropathy, unspecified; Z99.89 Dependence on other enabling machines and devices; Z86.718 Personal history of other venous thrombosis and embolism; Z86.73 Personal history of transient ischemic attack (TIA), and cerebral infarction without residual deficits; Z86.14 Personal history of Methicillin resistant Staphylococcus aureus infection; Z87.01 Personal history of pneumonia (recurrent); Z87.11 Personal history of peptic ulcer disease; Z87.19 Personal history of other diseases of the digestive system; Z95.810 Presence of automatic (implantable) cardiac defibrillator; Z90.49 Acquired absence of other specified parts of digestive tract; Z98.890 Other specified postprocedural states; Z98.61 Coronary angioplasty status; Z90.79 Acquired absence of other genital organ(s); Z79.02 Long term (current) use of antithrombotics/antiplatelets; Z79.4 Long term (current) use of insulin; Z79.82 Long term (current) use of aspirin; Z79.899 Other long term (current) drug therapy; Z88.0 Allergy status to penicillin; Z88.1 Allergy status to other antibiotic agents; Z88.5 Allergy status to narcotic agent; Z88.6 Allergy status to analgesic agent; Z88.8 Allergy status to other drugs, medicaments and biological substances; Z91.013 Allergy to seafood; Z91.041 Radiographic dye allergy status
CPT/HCPCS: 36415; 80053; 83735; 84484; 85025; 85610; 85730; 71046; 99285; 96365; 96366; 96375; 96376; J2270; J1644 ×2

== ENCOUNTER 2019-02-24 20:04 | Emergency (ER) | payer MEDICARE, OTHER ==
[2019-02-24] MEDS ORDERED: SODIUM CHLORIDE 0.9% 1,000 ML IV STA (21:15)
--- NOTE | 2019-02-24 21:18 | ED ---
Weakness HPI - General Chief complaint: Shortness of Breath Stated complaint: Possible stroke Time Seen by Provider: 02/24/19 20:45 Source: patient, RN notes reviewed, old records reviewed Mode of arrival: ambulatory Limitations: no limitations - History of Present Illness Initial comments: This is a 43-year-old male the ER for evaluation. Patient's well-known to our facility for evaluation of multiple medical issues significant medical illness. Patient resents today for evaluation of strokelike symptoms left-sided numbness weakness. Patient also has headache currently. Patient was eating dinner tonight when symptoms began to worsen. Patient was recently admitted to [facility] for around a month, apparently had intracranial hemo rrhage at the time. Patient is currently on [place]. Patient states he did elope from the hospital signing out AMA secondary to some disagreements that he had with his treatment and is not improving. He has a chest pain shortness breath currently. MD Complaint: generalized weakness, numbness, tingling (Left-sided face), difficulty walking (To the car after the event tonight) -: minutes(s) Location: generalized, LLE, RLE, face Severity: mild Quality: tingling Consistency: constant Improves with: none Worsens with: none Context: recent illness, history of similar Associated Symptoms: headaches, shortness of breath - Related Data Home Medications Medication Instructions Recorded Confirmed Pantoprazole [Protonix] 40 mg PO DAILY 04/01/18 02/24/19 Primidone [Mysoline] 100 mg PO BID 04/01/18 02/24/19 Aspirin EC [Ecotrin Low Dose] 81 mg PO DAILY 07/20/18 02/24/19 Ranolazine [Ranexa] 500 mg PO BID 11/06/18 02/24/19 Nitroglycerin Sl Tabs [Nitrostat] 0.4 mg SUBLINGUAL Q5M PRN 11/08/18 02/24/19 Tamsulosin HCl [Flomax] 0.4 mg PO DAILY 11/08/18 02/24/19 Rosuvastatin Calcium [Crestor] 40 mg PO DAILY 12/10/18 02/24/19 Metoprolol Tartrate [Lopressor] 25 mg PO BID 01/01/19 02/24/19 Furosemide [Lasix] 20 mg PO DAILY 02/24/19 02/24/19 Insulin Detemir (Levemir) [Levemir] 10 unit SQ HS 02/24/19 02/24/19 Isosorbide Mononitrate ER [Imdur] 30 mg PO DAILY 02/24/19 02/24/19 Magnesium Oxide 400 mg PO BID 02/24/19 02/24/19 Allergies Allergy/AdvReac Type Severity Reaction Status Date / Time erythromycin base Allergy Severe Rash/Hives Verified 02/24/19 20:48 [Erythromycin Base] cephalexin monohydrate Allergy Unknown Rash/Hives Verified 02/24/19 20:48 [From Keflex] codeine Allergy Unknown Unknown Verified 02/24/19 20:48 meclizine Allergy Unknown Unknown Verified 02/24/19 20:48 Penicillins Allergy Unknown Rash/Hives Verified 02/24/19 20:48 shellfish derived Allergy Unknown Anaphylaxis Verified 02/24/19 20:48 Fish Containing Products Allergy Anaphylaxis Verified 02/24/19 20:48 [Fish] Iodinated Contrast Media Allergy Anaphylaxis Verified 02/24/19 20:48 naproxen AdvReac Unknown Compromises Verified 02/24/19 20:48 Kidney Function atorvastatin calcium AdvReac Myalgia Verified 02/24/19 20:48 [From Lipitor] hydrocodone [From [place]] AdvReac Rapid Verified 02/24/19 20:48 Heart Rate Review of Systems ROS Statement: Those systems with pertinent positive or pertinent negative responses have been documented in the HPI. ROS Other: All systems not noted in ROS Statement are negative. Past Medical History Past Medical History: Asthma, Coronary Artery Disease (CAD), Chest Pain / Ang naldo, Heart Failure, CVA/TIA, Diabetes Mellitus, Deep Vein Thrombosis (DVT), GERD/Reflux, Hyperlipidemia, Hypertension, Myocardial Infarction ([place]), Osteoarthritis (OA), Pneumonia, Skin Disorder, Sleep Apnea/CPAP/BIPAP Additional Past Medical History / Comment(s): multiple vessel CAD, ischemic cardiomyopathy, diabetic neuropathy bilateral hands and feet, hypertensive cardiovascular disease, SHELIA with no device, chronic gastritis, degenerative disc disease, chronic back pain, depression with hx of suicide attempts, gastroparesis, psoriasis, UTI, migraines, TIA, PUD, hiatal hernia, L rotator cuff tear, bronchitis, pseudoaneurysm L groin post procedure. 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 Date of Last Stent Placement:: 10/2018 Type of Cardiac Device: Biventricular Pacemaker, AICD Device Placement Date:: 09/19/15 Past Psychological History: Anxiety, Depression, PTSD Smoking Status: Never smoker Past Alcohol Use History: None Reported Past Drug Use History: None Reported - Past Family History Mother Family Medical History: Coronary Artery Disease (CAD), Myocardial Infarction ([place]) Additional Family Medical History / Comment(s): 7 [place] and faulty heart valve. Pt does not know the age when mother had her IL's. Father History Unknown: Yes Additional Family Medical History / Comment(s): Does not know who father is. Brother(s) Family Medical History: Cancer, Congestive Heart Failure (CHF), Myocardial Infarction ([place]) Additional Family Medical History / Comment(s): Parkinsons. Pt does not know at what age his brother had an IL. Patient's other brother has lung CA Patient has Family Medical History: No Reported History Additional Family Medical History / Comment(s): There is a strong family history for heart disease, hypertension, and diabetes. General Exam Limitations: no limitations General appearance: alert, in no apparent distress Head exam: Present: atraumatic, normocephalic, normal inspection Eye exam: Present: normal appearance, PERRL, EOMI. Absent: scleral icterus, conjunctival injection, periorbital swelling ENT exam: Present: normal exam, mucous membranes moist Neck exam: Present: normal inspection. Absent: tenderness, meningismus, lymphad enopathy Respiratory exam: Present: normal lung sounds bilaterally. Absent: respiratory distress, wheezes, rales, rhonchi, stridor Cardiovascular Exam: Present: normal rhythm, tachycardia, normal heart sounds. Absent: systolic murmur, diastolic murmur, rubs, gallop, clicks GI/Abdominal exam: Present: soft, normal bowel sounds. Absent: distended, tenderness, guarding, rebound, rigid Extremities exam: Present: normal inspection, full ROM, normal capillary refill. Absent: tenderness, pedal edema, joint swelling, calf tenderness Back exam: Present: normal inspection Neurological exam: Present: alert, oriented X3, CN II-XII intact Psychiatric exam: Present: normal affect, normal mood Skin exam: Present: warm, dry, intact, normal color. Absent: rash Course Vital Signs 02/24/19 20:07 Temperature 97.8 F Pulse Rate 113 H Respiratory 22 Rate Blood Pressure 127/64 O2 Sat by Pulse 99 Oximetry - Reevaluation(s) Reevaluation #1: 02/25/19 00:01 Record is reviewed with multiple issues and ER visits, multiple transverse Reevaluation #2: 02/25/19 00:01 spoke to patient at length, symptoms continue to wax and wane. Reevaluation #3: 02/25/19 00:02 Patient encouraged to return to ER symptoms worsen. We will discharge patient Medical Decision Making - Medical Decision Making 43 male the ER for evaluation patient does say for evaluation regarding some neurological changes numbness tingling in arms face. Patient is convinced he has prior history of recent brain hemorrhage. Computed tomography scan is negative. Patient is not neurological exam nonfocal. Patient will be disc harged to return if symptoms progress - Lab Data Result diagrams: 02/24/19 22:13 02/24/19 22:13 Lab Results 02/24/19 02/24/19 02/24/19 Range/Units 22:13 22:13 22:13 WBC 5.5 (3.8-10.6) k/uL RBC 4.17 L (4.30-5.90) m/uL Hgb 11.4 L (13.0-17.5) gm/dL Hct 36.8 L (39.0-53.0) % MCV 88.3 D (80.0-100.0) fL MCH 27.2 (25.0-35.0) pg MCHC 30.9 L (31.0-37.0) g/dL RDW 21.2 H (11.5-15.5) % Plt Count 242 (150-450) k/uL Neutrophils % 72 % Lymphocytes % 19 % Monocytes % 4 % Eosinophils % 2 % Basophils % 1 % Neutrophils # 3.9 (1.3-7.7) k/uL Lymphocytes # 1.1 (1.0-4.8) k/uL Monocytes # 0.2 (0-1.0) k/uL Eosinophils # 0.1 (0-0.7) k/uL Basophils # 0.0 (0-0.2) k/uL Hypochromasia Marked Anisocytosis Moderate PT 10.5 (9.0-12.0) sec INR 1.0 (<1.2) APTT 22.4 (22.0-30.0) sec Sodium 133 L (137-145) mmol/L Potassium 4.5 (3.5-5.1) mmol/L Chloride 102 (98-107) mmol/L Carbon Dioxide 17 L (22-30) mmol/L Anion Gap 14 mmol/L BUN 24 H (9-20) mg/dL Creatinine 0.71 (0.66-1.25) mg/dL Est GFR (CKD-EPI)AfAm >90 (>60 ml/min/1.73 sqM) Est GFR (CKD-EPI)NonAf >90 (>60 ml/min/1.73 sqM) Glucose 314 H (74-99) mg/dL Plasma Lactic Acid [place] (0.7-2.0) mmol/L Calcium 9.3 (8.4-10.2) mg/dL Phosphorus 4.0 (2.5-4.5) mg/dL Magnesium 1.8 (1.6-2.3) mg/dL Total Bilirubin 0.9 (0.2-1.3) mg/dL AST 27 (17-59) U/L ALT 25 (21-72) U/L Alkaline Phosphatase 155 H (38-126) U/L Troponin I (0.000-0.034) ng/mL NT-Pro-B Natriuret Pep pg/mL Total Protein 6.2 L (6.3-8.2) g/dL Albumin 3.6 (3.5-5.0) g/dL 02/24/19 02/24/19 02/24/19 Range/Units 22:13 22:13 22:13 WBC (3.8-10.6) k/uL RBC (4.30-5.90) m/uL Hgb (13.0-17.5) gm/dL Hct (39.0-53.0) % MCV (80.0-100.0) fL MCH (25.0-35.0) pg MCHC (31.0-37.0) g/dL RDW (11.5-15.5) % Plt Count (150-450) k/uL Neutrophils % % Lymphocytes % % Monocytes % % Eosinophils % % Basophils % % Neutrophils # (1.3-7.7) k/uL Lymphocytes # (1.0-4.8) k/uL Monocytes # (0-1.0) k/uL Eosinophils # (0-0.7) k/uL Basophils # (0-0.2) k/uL Hypochromasia Anisocytosis PT (9.0-12.0) sec INR (<1.2) APTT (22.0-30.0) sec Sodium (137-145) mmol/L Potassium (3.5-5.1) mmol/L Chloride (98-107) mmol/L Carbon Dioxide (22-30) mmol/L Anion Gap mmol/L BUN (9-20) mg/dL Creatinine (0.66-1.25) mg/dL Est GFR (CKD-EPI)AfAm (>60 ml/min/1.73 sqM) Est GFR (CKD-EPI)NonAf (>60 ml/min/1.73 sqM) Glucose (74-99) mg/dL Plasma Lactic Acid [place]bo 1.4 (0.7-2.0) mmol/L Calcium (8.4-10.2) mg/dL Phosphorus (2.5-4.5) mg/dL Magnesium (1.6-2.3) mg/dL Total Bilirubin (0.2-1.3) mg/dL AST (17-59) U/L ALT (21-72) U/L Alkaline Phosphatase (38-126) U/L Troponin I 0.034 (0.000-0.034) ng/mL NT-Pro-B Natriuret Pep 3930 pg/mL Total Protein (6.3-8.2) g/dL Albumin (3.5-5.0) g/dL - Radiology Data Radiology results: report reviewed (CT brain and CXR is negative for acute disease), image reviewed Disposition Clinical Impression: Paresthesia Disposition: HOME SELF-CARE Condition: Fair Instructions (If sedation given, give patient instructions): Paresthesia (ED) Is patient prescribed a controlled substance at d/c from ED?: No Referrals: Junie New MD [Primary Care Provider] - 1-2 days
[2019-02-24 22:47] LABS: ALT 25 U/L (21-72); AST 27 U/L (17-59); African American GFR (CKD) >90 (>60 ml/min/1.73 sqM); Albumin 3.6 g/dL (3.5-5.0); Alkaline Phosphatase 155 U/L (38-126); Anion Gap 14 mmol/L; Blood Urea Nitrogen 24 mg/dL (9-20); Calcium 9.3 mg/dL (8.4-10.2); Carbon Dioxide 17 mmol/L (22-30); Chloride 102 mmol/L (98-107); Glucose 314 mg/dL (74-99); Magnesium 1.8 mg/dL (1.6-2.3); Non-African American GFR(CKD) >90 (>60 ml/min/1.73 sqM); Potassium 4.5 mmol/L (3.5-5.1); Sodium 133 mmol/L (137-145); Total Bilirubin 0.9 mg/dL (0.2-1.3); Total Protein 6.2 g/dL (6.3-8.2)
[2019-02-24 22:52] LABS: Partial Thromboplastin Time 22.4 sec (22.0-30.0); Prothrombin Time 10.5 sec (9.0-12.0)
[2019-02-24 22:53] LABS: Anisocytosis Moderate; Basophils % (A) 1 %; Eosinophils # (A) 0.1 k/uL (0-0.7); Eosinophils % (A) 2 %; HCT 36.8 % (39.0-53.0); HGB 11.4 gm/dL (13.0-17.5); Hypochromasia Marked; Lymphocytes # (A) 1.1 k/uL (1.0-4.8); Lymphocytes % (A) 19 %; MCH 27.2 pg (25.0-35.0); MCHC 30.9 g/dL (31.0-37.0); Mean Platelet Volume 6.2; Monocytes # (A) 0.2 k/uL (0-1.0); Monocytes % (A) 4 %; Neutrophils # (A) 3.9 k/uL (1.3-7.7); Neutrophils % (A) 72 %; Platelet Count 242 k/uL (150-450); RBC 4.17 m/uL (4.30-5.90); RDW 21.2 % (11.5-15.5); WBC 5.5 k/uL (3.8-10.6)
[2019-02-24 22:57] LABS: MCV 88.3 fL (80.0-100.0)
[2019-02-25 00:19] VITALS: BP 124/72; PULSE 102; RESP 18; TEMP 97.9
--- NOTE | 2019-02-25 11:32 | CT ---
EXAMINATION TYPE: CT brain wo con DATE OF EXAM: 02/24/2019 COMPARISON: 01/01/2019 INDICATION: Dizziness weakness DLP: 1129.4 mGycm, Automated exposure control for dose reduction was used. CONTRAST: None CT of the brain is performed utilizing 3 mm thick sections through the posterior fossa and 3 mm thick sections through the remaining calvarium. Study is performed within 24 hours of arrival to the hosp ital. No abnormal hyperdensity is present to suggest an acute intracranial hemorrhage. No mass lesion is evident. No acute infarcts are evident. There may be some subtle subcortical white matter hypodensity in the f rontal lobes bilaterally, likely on the basis of chronic white matter ischemic changes. This could be further evaluated with MRI. This was present on the comparison study. Ventricles and sulci are appropriate for the patient age. Paranasal sinuses and mastoid air cells within the [id number] are clear. IMPRESSIONS: 1. Subtle mild bilateral frontal lobe subcortical white matter changes. This is stable from compari son. Further evaluation with MRI can be performed. 2. Preliminary results were provided by the on-call radiologist.
--- NOTE | 2019-02-25 12:29 | XR ---
EXAMINATION TYPE: XR chest 2V DATE OF EXAM: 02/24/2019 COMPARISON: 02/14/2019 HISTORY: Weakness TECHNIQUE: Frontal and lateral views of the chest are obtained. FINDINGS: There is very slight blunting right costophrenic angle. Heart appears slightly enlarged. T here is no heart failure. There is a left axillary pacemaker. There are chest leads. IMPRESSION: There is some pleural reaction right lung base increased compared to old exam. Stable ca rdiomegaly.
== END 2019-02-25 00:19 | disposition home or self-care (01) ==
LOC: EC 20:04
DX: R20.2 Paresthesia of skin (principal); R53.1 Weakness; R06.02 Shortness of breath; R20.0 Anesthesia of skin; I25.10 Atherosclerotic heart disease of native coronary artery without angina pectoris; I11.0 Hypertensive heart disease with heart failure; I50.9 Heart failure, unspecified; K21.9 Gastro-esophageal reflux disease without esophagitis; I25.2 Old myocardial infarction; G47.30 Sleep apnea, unspecified; E78.5 Hyperlipidemia, unspecified; E11.40 Type 2 diabetes mellitus with diabetic neuropathy, unspecified; E11.43 Type 2 diabetes mellitus with diabetic autonomic (poly)neuropathy; K31.84 Gastroparesis; Z79.82 Long term (current) use of aspirin; Z79.4 Long term (current) use of insulin; Z79.899 Other long term (current) drug therapy; Z88.0 Allergy status to penicillin; Z88.1 Allergy status to other antibiotic agents; Z88.5 Allergy status to narcotic agent; Z88.8 Allergy status to other drugs, medicaments and biological substances; Z91.048 Other nonmedicinal substance allergy status; Z91.013 Allergy to seafood; Z88.6 Allergy status to analgesic agent; Z95.0 Presence of cardiac pacemaker; Z95.5 Presence of coronary angioplasty implant and graft; Z86.73 Personal history of transient ischemic attack (TIA), and cerebral infarction without residual deficits; Z86.718 Personal history of other venous thrombosis and embolism
CPT/HCPCS: 36415; 70450; 71046; 80053; 83605; 83735; 83880; 84100; 84484; 85025; 85610; 85730; 93005; 99285

== ENCOUNTER 2019-02-26 20:35 | Inpatient (IN) | payer MEDICARE, OTHER ==
--- NOTE | 2019-02-26 21:26 | ED ---
Chest Pain HPI - General Chief Complaint: Chest Pain Stated Complaint: Chest Pain, Shortness of Breath Time Seen by Provider: 02/26/19 21:03 Source: patient Mode of arrival: wheelchair Limitations: no limitations - History of Present Illness Initial Comments: Ti is a 43-year-old gentleman who presents to the emergency department today for evaluation of chest pain. Patient has a very extensive medical history including known coronary artery disease, advanced heart failure, stripped cardiac arrest in November of this year. Patient follows with cardiology at the [facility] She was recently admitted to the [facility] and had a prolonged stay where he reports he was diuresed over 35 pounds of weight. Patient's been home for nearly a week, he's been seen in our emergency department as well as [facility]. Patient states that this evening personally 2 hours prior to arrival he was watching television when he began experiencing chest pain. Patient grades the pain as retrosternal pressure similar to previous episodes of cardiac ischemia. - Related Data Home Medications Medication Instructions Recorded Confirmed Pantoprazole [Protonix] 40 mg PO DAILY 04/01/18 02/26/19 Primidone [Mysoline] 100 mg PO BID 04/01/18 02/26/19 Aspirin EC [Ecotrin Low Dose] 81 mg PO DAILY 07/20/18 02/26/19 Ranolazine [Ranexa] 500 mg PO BID 11/06/18 02/26/19 Nitroglycerin Sl Tabs [Nitrostat] 0.4 mg SUBLINGUAL Q5M PRN 11/08/18 02/26/19 Tamsulosin HCl [Flomax] 0.4 mg PO DAILY 11/08/18 02/26/19 Rosuvastatin Calcium [Crestor] 40 mg PO DAILY 12/10/18 02/26/19 Metoprolol Tartrate [Lopressor] 25 mg PO BID 01/01/19 02/26/19 Furosemide [Lasix] 20 mg PO DAILY 02/24/19 02/26/19 Insulin Detemir (Levemir) [Levemir] 10 unit SQ HS 02/24/19 02/26/19 Isosorbide Mononitrate ER [Imdur] 30 mg PO DAILY 02/24/19 02/26/19 Magnesium Oxide 400 mg PO BID 02/24/19 02/26/19 Allergies Allergy/AdvReac Type Severity Reaction Status Date / Time erythromycin base Allergy Severe Rash/Hives Verified 02/26/19 21:37 [Erythromycin Base] cephalexin monohydrate Allergy Unknown Rash/Hives Verified 02/26/19 21:37 [From Keflex] codeine Allergy Unknown Unknown Verified 02/26/19 21:37 meclizine Allergy Unknown Unknown Verified 02/26/19 21:37 Penicillins Allergy Unknown Rash/Hives Verified 02/26/19 21:37 shellfish derived Allergy Unknown Anaphylaxis Verified 02/26/19 21:37 adhesive tape Allergy Rash/Hives Verified 02/26/19 21:37 Fish Containing Products Allergy Anaphylaxis Verified 02/26/19 21:37 [Fish] Iodinated Contrast Media Allergy Anaphylaxis Verified 02/26/19 21:37 silver Allergy Rash/Hives Verified 02/26/19 21:37 [From Tegaderm AG Mesh] naproxen AdvReac Unknown Compromises Verified 02/26/19 21:37 Kidney Function atorvastatin calcium AdvReac Myalgia Verified 02/26/19 21:37 [From Lipitor] hydrocodone [From [place]] AdvReac Rapid Verified 02/26/19 21:37 Heart Rate Review of Systems ROS Statement: Those systems with pertinent positive or pertinent negative responses have been documented in the HPI. ROS Other: All systems not noted in ROS Statement are negative. EKG Findings - EKG Comments: EKG Findings:: KG was obtained due to complaint of chest pain, EKG was obtained at 2049, rate is 108 rhythm is intact regular paced. There are normal inter vals, [place] 176, QRS 80, QTC is 428. There is no acute ST elevations or depressions no evidence of acute ischemia or infarction. When compared to EKG obtained last month ST elevations or visible diffusely are no longer present. Past Medical History Past Medical History: Asthma, Coronary Artery Disease (CAD), Chest Pain / Angina, Heart Failure, CVA/TIA, Diabetes Mellitus, Deep Vein Thrombosis (DVT), GERD/Reflux, Hyperlipidemia, Hypertension, Myocardial Infarction (MS), Osteoarthritis (OA), Pneumonia, Skin Disorder, Sleep Apnea/CPAP/BIPAP Additional Past Medical History / Comment(s): multiple vessel CAD, ischemic cardiomyopathy, diabetic neuropathy bilateral hands and feet, hypertensive cardiovascular disease, SHELIA with no device, chronic gastritis, degenerative disc disease, chronic back pain, depression with hx of suicide attempts, gastroparesis, psoriasis, UTI, migraines, TIA, PUD, hiatal hernia, L rotator cuff tear, bronchitis, pseudoaneurysm L groin post procedure. 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 Date of Last Stent Placement:: 10/2018 Type of Cardiac Device: Biventricular Pacemaker, AICD Device Placement Date:: 09/19/15 Past Psychological History: Anxiety, Depression, PTSD Smoking Status: Never smoker Past Alcohol Use History: None Reported Past Drug Use History: None Reported - Past Family History Mother Family Medical History: Coronary Artery Disease (CAD), Myocardial Infarction (MS) Additional Family Medical History / Comment(s): 7 MS and faulty heart valve. Pt does not know the age when mother had her MS's. Father History Unknown: Yes Additional Family Medical History / Comment(s): Does not know who father is. Brother(s) Family Medical History: Cancer, Congestive Heart Failure (CHF), Myocardial Infarction (MS) Additional Family Medical History / Comment(s): Parkinsons. Pt does not know at what age his brother had an MS. Patient's other brother has lung CA Patient has Family Medical History: No Reported History Additional Family Medical History / Comment(s): There is a strong family history for heart disease, hypertension, and diabetes. General Exam - General Exam Comments Initial Comments: Physical Exam GENERAL: Chronically ill appearing No acute distress HENT: Normocephalic, Atraumatic. EYES: PERRL, EOMI No conjunctival pallor PULMONARY: Unlabored respirations. No audible rales rhonchi or wheezing was noted. CARDIOVASCULAR: Tachycardic, regular Warm and well perfused extremities Palpable AICD left chest ABDOMEN: Soft and nontender with normal bowel sounds. SKIN: Sallow and pale : Deferred NEUROLOGIC: Patient is alert and oriented x3. Moving all extremities spontaneously MUSCULOSKELETAL: Generalized atrophy PSYCHIATRIC: Normal psychiatric evaluation. Limitations: no limitations Course Vital Signs 02/26/19 02/26/19 02/26/19 20:38 21:36 23:14 Temperature 97.9 F Pulse Rate 105 H 107 H 109 H Respiratory 16 20 18 Rate Blood Pressure 113/77 117/75 108/52 O2 Sat by Pulse 100 100 97 Oximetry 02/27/19 00:27 Temperature Pulse Rate 109 H Respiratory 18 Rate Blood Pressure 115/72 O2 Sat by Pulse 96 Oximetry Chest Pain MDM - MDM Patient was seen and evaluated history is obtained from the patient Ti is a very well-known 43-year-old gentleman presenting the ER for chest pain. Patient took nitro prior to arrival his EKG appears less ischemic today than previous EKGs, he is in no acute distress he does appear very chronically ill he has had some significant weight loss recently due to likely cardiac cachexia Labs and imaging were obtained Labs primarily at the patient's baseline, troponin is not elevated however chest x-ray suggestive of a right lower lobe infiltrate Upon further questioning patient does state he's had a minimally productive cough for approximately 2 days which she believes may be contributing to his chest discomfort, at this time I don't feel the patient's chest discomfort is cardiac in nature, his EKG and troponin are better than most previous admissions. We will plan to admit the patient here for antibiotic treatment of pneumonia. Patient with multiple drug ALLERGIES will be treated with Levaquin for pneumonia. Disposition Clinical Impression: Pneumonia Disposition: ADMITTED IP TO THIS HOSP Condition: Fair Referrals: Junie New MD [Primary Care Provider] - 1-2 days
[2019-02-26 21:31] LABS: Anisocytosis Moderate; Basophils # (A) 0.1 k/uL (0-0.2); Basophils % (A) 1 %; Eosinophils % (A) 1 %; HCT 33.9 % (39.0-53.0); HGB 10.6 gm/dL (13.0-17.5); Hypochromasia Moderate; Lymphocytes # (A) 0.5 k/uL (1.0-4.8); Lymphocytes % (A) 11 %; MCH 27.2 pg (25.0-35.0); MCHC 31.4 g/dL (31.0-37.0); MCV 86.8 fL (80.0-100.0); Mean Platelet Volume 6.7; Microcytosis Slight; Monocytes # (A) 0.3 k/uL (0-1.0); Monocytes % (A) 7 %; Neutrophils # (A) 3.8 k/uL (1.3-7.7); Neutrophils % (A) 79 %; Platelet Count 211 k/uL (150-450); Poikilocytosis Slight; RDW 21.1 % (11.5-15.5); WBC 4.8 k/uL (3.8-10.6)
[2019-02-26] MEDS ORDERED: NITROGLYCERIN OINT 1 INCH/GM PACKET TOPICAL STA (21:42)
[2019-02-26] MEDS ORDERED: MORPHINE SULFATE 4 MG/ML SYRINGE IVP STA (21:42)
[2019-02-26 21:46] LABS: INR 1.1 (<1.2)
[2019-02-26 21:47] LABS: Prothrombin Time 11.7 sec (9.0-12.0)
[2019-02-26 21:52] LABS: Partial Thromboplastin Time 19.4 sec (22.0-30.0)
[2019-02-26 21:56] LABS: ALT 30 U/L (21-72); AST 20 U/L (17-59); African American GFR (CKD) >90 (>60 ml/min/1.73 sqM); Albumin 3.3 g/dL (3.5-5.0); Alkaline Phosphatase 133 U/L (38-126); Anion Gap 12 mmol/L; Blood Urea Nitrogen 22 mg/dL (9-20); Carbon Dioxide 18 mmol/L (22-30); Chloride 101 mmol/L (98-107); Glucose 284 mg/dL (74-99); Magnesium 1.7 mg/dL (1.6-2.3); Potassium 4.3 mmol/L (3.5-5.1); Sodium 131 mmol/L (137-145); Total Bilirubin 1.4 mg/dL (0.2-1.3); Total Protein 5.8 g/dL (6.3-8.2)
--- NOTE | 2019-02-26 21:57 | XR ---
EXAMINATION TYPE: XR chest 2V DATE OF EXAM: 02/26/2019 COMPARISON: 02/24/2019 HISTORY: Chest pain TECHNIQUE: Frontal and lateral views of the chest are obtained. FINDINGS: There is some mild infiltrate right lower lobe. There is no heart failure. Heart is slight ly enlarged. There is left axillary pacemaker. Bony thorax is intact. IMPRESSION: There is a new mild infiltrate right lower lobe compared to recent exam. No heart failur e.
[2019-02-26] MEDS ORDERED: FUROSEMIDE 10 MG/ML 10 ML VIAL IV STA (23:05)
[2019-02-27] MEDS ORDERED: LEVOFLOXACIN 750MG-D5W PMX 750 MG in DEXTROSE/WATER 1 150ML.BAG IVPB STA (01:34)
[2019-02-27] MEDS ORDERED: PNEUMONIA PROTOCOL UTILIZED 1 EACH MISC PO PRN (01:34)
[2019-02-27] MEDS ORDERED: MORPHINE SULFATE 4 MG/ML SYRINGE IVP STA ×2 (01:50→03:07)
[2019-02-27] MEDS ORDERED: HYDROmorphone 0.5 MG/0.5 ML SYRINGE IVP PRN (03:07)
[2019-02-27 05:50] LABS: Glucose,Whole Blood 222 mg/dL (75-99)
[2019-02-27] MEDS ORDERED: HYDROcodone/APAP 5-325MG 1 EACH TAB PO PRN (09:39)
[2019-02-27] MEDS ORDERED: FUROSEMIDE 10 MG/ML 2 ML VIAL IV SCH (10:00)
[2019-02-27] MEDS ORDERED: PRIMIDONE 50 MG TAB PO SCH ×2 (10:45→21:00)
[2019-02-27] MEDS ORDERED: ISOSORBIDE MONONITRATE ER 30 MG TAB.ER.24H PO SCH (10:45)
[2019-02-27] MEDS: METOPROLOL TARTRATE 25 MG TAB PO SCH ×2 (10:46→20:21)
[2019-02-27] MEDS: MAGNESIUM OXIDE 400 MG TAB PO SCH ×2 (10:46→17:13)
[2019-02-27] MEDS: DOXYCYCLINE 100 MG CAP PO SCH ×2 (10:46→20:22)
--- NOTE | 2019-02-27 11:17 | P.HPIM ---
History of Present Illness Patient is a 43-year-old well-known patient to me has multiple medical issues multiple cardiac stents Congestive heart failure EF of around 20% in the past, has an AICD came in with comments of shortness of breath orthopnea proximal nocturnal dyspnea along with chest pain sharp in nature. Chest pain is nonradiating moderate severity not associated with diaphoresis nausea lightheadedness. Nonpleuritic in nature. Patient has pulmonary edema on chest x-ray with elevated BNP patient is on 20 mg of Lasix patient the blood pressure goes down and goes into renal failure with the diuretic therapy. Patient is hyponatremic at 131. Chest x-ray was done which was read as possibility of right middle lobe pneumonia although patient doesn't have any fever no leukocytosis does have cough without any sputum production. Clinically patient doesn't appear to have pneumonia may have some bronchitis patient received levofloxacin and patient was started on doxycycline patient is ALLERGIC to erythromycin and cephalosporins Review of Systems REVIEW OF SYSTEMS: CONSTITUTIONAL: No fever, no malaise, no fatigue. HEENT: No recent visual problems or hearing problems. Denied any sore throat. CARDIOVASCULAR: No chest pain, orthopnea, PND, no palpitations, no syncope. PULMONARY: No shortness of breath, no cough, no hemoptysis. GASTROINTESTINAL: No diarrhea, no nausea, no vomiting, no abdominal pain. NEUROLOGICAL: No headaches, no weakness, no numbness. HEMATOLOGICAL: Denies any bleeding or petechiae. GENITOURINARY: Denies any burning micturition, frequency, or urgency. MUSCULOSKELETAL/RHEUMATOLOGICAL: Denies any joint pain, swelling, or any muscle pain. ENDOCRINE: Denies any polyuria or polydipsia. The rest of the 14-point review of systems is negative. Past Medical History Past Medical History: Asthma, Coronary Artery Disease (CAD), Chest Pain / Angina, Heart Failure, CVA/TIA, Diabetes Mellitus, Deep Vein Thrombosis (DVT), GERD/Reflux, Hyperlipidemia, Hypertension, Myocardial Infarction (MO), Osteoarthritis (OA), Pneumonia, Skin Disorder, Sleep Apnea/CPAP/BIPAP Additional Past Medical History / Comment(s): multiple vessel CAD, ischemic cardiomyopathy, diabetic neuropathy bilateral hands and feet, hypertensive cardiovascular disease, SHELIA with no device, chronic gastritis, degenerative disc disease, chronic back pain, depression with hx of suicide attempts, gastroparesis, psoriasis, UTI, migraines, TIA, PUD, hiatal hernia, L rotator cuff tear, bronchitis, pseudoaneurysm L groin post procedure. 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 Date of Last Stent Placement:: 10/2018 Type of Cardiac Device: Biventricular Pacemaker, AICD Device Placement Date:: 09/19/15 Past Psychological History: Anxiety, Depression, PTSD Additional Psychological History / Comment(s): Several suicide attempts with use of insulin. PTSD - in 2000 his 3mo old son in his arms (born 2 months premature). He has a walker at home if needed. He drives.pt has 2 adult stepchildren at home with him most of the time. Spouse manages his medications. Smoking Status: Never smoker Past Alcohol Use History: None Reported Additional Past Alcohol Use History / Comment(s): Past alcohol abuse - pt states he quit drinking over 8yrs ago. Past Drug Use History: None Reported Additional Drug Use History / Comment(s): Pt has smoked marijuana in the past - last smoked in 1999. - Past Family History Mother Family Medical History: Coronary Artery Disease (CAD), Myocardial Infarction (MO) Additional Family Medical History / Comment(s): 7 MO and faulty heart valve. Pt does not know the age when mother had her MO's. Father History Unknown: Yes Additional Family Medical History / Comment(s): Does not know who father is. Brother(s) Family Medical History: Cancer, Congestive Heart Failure (CHF), Myocardial Infarction (MO) Additional Family Medical History / Comment(s): Parkinsons. Pt does not know at what age his brother had an MO. Patient's other brother has lung CA Patient has Family Medical History: No Reported History Additional Family Medical History / Comment(s): There is a strong family history for heart disease, hypertension, and diabetes. Medications and Allergies Home Medications Medication Instructions Recorded Confirmed Type Pantoprazole [Protonix] 40 mg PO DAILY 04/01/18 02/26/19 History Aspirin EC [Ecotrin Low Dose] 81 mg PO DAILY 07/20/18 02/26/19 History Ranolazine [Ranexa] 500 mg PO BID 11/06/18 02/26/19 History Nitroglycerin Sl Tabs [Nitrostat] 0.4 mg SUBLINGUAL Q5M PRN 11/08/18 02/26/19 History Tamsulosin HCl [Flomax] 0.4 mg PO DAILY 11/08/18 02/26/19 History Rosuvastatin Calcium [Crestor] 40 mg PO DAILY 12/10/18 02/26/19 History Metoprolol Tartrate [Lopressor] 25 mg PO BID 01/01/19 02/26/19 History Furosemide [Lasix] 20 mg PO DAILY 02/24/19 02/26/19 History Insulin Detemir (Levemir) [Levemir] 10 unit SQ HS 02/24/19 02/26/19 History Isosorbide Mononitrate ER [Imdur] 30 mg PO DAILY 02/24/19 02/26/19 History Magnesium Oxide 400 mg PO BID 02/24/19 02/26/19 History Gabapentin [Neurontin] 600 mg PO TID 02/27/19 02/27/19 History Allergies Allergy/AdvReac Type Severity Reaction Status Date / Time erythromycin base Allergy Severe Rash/Hives Verified 02/26/19 21:37 [Erythromycin Base] cephalexin monohydrate Allergy Unknown Rash/Hives Verified 02/26/19 21:37 [From Keflex] codeine Allergy Unknown Unknown Verified 02/26/19 21:37 meclizine Allergy Unknown Unknown Verified 02/26/19 21:37 Penicillins Allergy Unknown Rash/Hives Verified 02/26/19 21:37 shellfish derived Allergy Unknown Anaphylaxis Verified 02/26/19 21:37 adhesive tape Allergy Rash/Hives Verified 02/26/19 21:37 Fish Containing Products Allergy Anaphylaxis Verified 02/26/19 21:37 [Fish] Iodinated Contrast Media Allergy Anaphylaxis Verified 02/26/19 21:37 silver Allergy Rash/Hives Verified 02/26/19 21:37 [From Tegaderm AG Mesh] naproxen AdvReac Unknown Compromises Verified 02/26/19 21:37 Kidney Function atorvastatin calcium AdvReac Myalgia Verified 02/26/19 21:37 [From Lipitor] hydrocodone [From [place]] AdvReac Rapid Verified 02/26/19 21:37 Heart Rate Physical Exam Vitals: Vital Signs Temp Pulse Pulse Resp BP BP Pulse Ox 02/27/19 08:00 97.8 F 110 H 18 104/63 96 02/27/19 02:55 98.1 F 103 H 18 110/78 100 02/27/19 02:16 107 H 18 124/84 99 02/27/19 00:27 109 H 18 115/72 96 02/26/19 23:14 109 H 18 108/52 97 02/26/19 21:36 107 H 20 117/75 100 02/26/19 20:38 97.9 F 105 H 16 113/77 100 Intake and Output 02/26/19 02/27/19 02/27/19 22:59 06:59 14:59 Intake Total 300 Balance 300 Intake: Oral 300 Other: # Voids 1 Weight 97.069 kg 100 kg PHYSICAL EXAMINATION: GENERAL: The patient is alert and oriented x3, not in any acute distress. Obese HEENT: Pupils are round and equally reacting to light. EOMI. No scleral icterus. No conjunctival pallor. Normocephalic, atraumatic. No pharyngeal erythema. No thyromegaly. CARDIOVASCULAR: S1 and S2 present. No murmurs, rubs, or gallops. Elevated JVD PULMONARY: Rhonchi bilaterally, bibasilar crackles no wheezing ABDOMEN: Soft, nontender, nondistended, normoactive bowel sounds. No palpable organomegaly. MUSCULOSKELETAL: No joint swelling or deformity. EXTREMITIES: No cyanosis, clubbing, or pedal edema. NEUROLOGICAL: Gross neurological examination did not reveal any focal deficits. SKIN: No rashes. Results CBC & Chem 7: 02/26/19 21:18 02/26/19 21:18 Labs: Abnormal Lab Results - Last 24 Hours (Table) 02/26/19 02/26/19 02/26/19 Range/Units 21:18 21:18 21:18 RBC 3.90 L (4.30-5.90) m/uL Hgb 10.6 L (13.0-17.5) gm/dL Hct 33.9 L (39.0-53.0) % RDW 21.1 H (11.5-15.5) % Lymphocytes # 0.5 L (1.0-4.8) k/uL APTT 19.4 L (22.0-30.0) sec Sodium 131 L (137-145) mmol/L Carbon Dioxide 18 L (22-30) mmol/L BUN 22 H (9-20) mg/dL Glucose 284 H (74-99) mg/dL POC Glucose (mg/dL) (75-99) mg/dL Total Bilirubin 1.4 H (0.2-1.3) mg/dL Alkaline Phosphatase 133 H (38-126) U/L Total Protein 5.8 L (6.3-8.2) g/dL Albumin 3.3 L (3.5-5.0) g/dL 02/27/19 Range/Units 05:49 RBC (4.30-5.90) m/uL Hgb (13.0-17.5) gm/dL Hct (39.0-53.0) % RDW (11.5-15.5) % Lymphocytes # (1.0-4.8) k/uL APTT (22.0-30.0) sec Sodium (137-145) mmol/L Carbon Dioxide (22-30) mmol/L BUN (9-20) mg/dL Glucose (74-99) mg/dL POC Glucose (mg/dL) 222 H (75-99) mg/dL Total Bilirubin (0.2-1.3) mg/dL Alkaline Phosphatase (38-126) U/L Total Protein (6.3-8.2) g/dL Albumin (3.5-5.0) g/dL Thrombosis Risk Factor Assmnt - Choose All That Apply Each Factor Represents 1 point: Age 41-60 years Thrombosis Risk Factor Assessment Total Risk Factor Score: 1 Thrombosis Risk Factor Assessment Level: Low Risk Assessment and Plan Plan: -Shadows of breath: Secondary to can start failure chronic systolic dysfunction EF of 20% with acute exacerbation patient was started on 20 IV twice a day of Lasix patient takes 20 daily of oral Lasix at home. Monitor kidney function input and output monitoring -Possible bronchitis my clinical suspicion for pneumonia is low patient will be started on doxycycline levofloxacin will be discontinued -Chronic systolic dysfunction patient has an AICD, patient is not on ROWAN inhibitor probably because of his hypotension issues. The cardiac transplant list Pain will repeat 2 more sets of troponins EKG did not show any acute ST-T wave changes if needed will consult cardiology. -Obesity sleep apnea patient will continue his CPAP here -Depression Due to prophylaxis as subcutaneous heparin
[2019-02-27 11:45] LABS: Glucose,Whole Blood 316 mg/dL (75-99)
[2019-02-27] MEDS: TAMSULOSIN 0.4 MG CAP.ER.24H PO SCH (12:24)
[2019-02-27] MEDS: RANOLAZINE 500 MG TAB.ER.12H PO SCH ×2 (12:24→20:22)
[2019-02-27] MEDS: ASPIRIN 81 MG PO SCH (12:24)
[2019-02-27] MEDS: INSULIN ASPART (NovoLOG) 100 UNIT/ML VIAL SQ SCH ×3 (12:25→20:28)
[2019-02-27 16:37] LABS: Glucose,Whole Blood 123 mg/dL (75-99)
[2019-02-27] MEDS: HEPARIN SODIUM,PORCINE 5,000 UNIT/ML 1 ML VIAL SQ SCH (17:13)
[2019-02-27] MEDS: GABAPENTIN 300 MG CAP PO SCH ×2 (17:13→20:22)
[2019-02-27 20:16] LABS: Glucose,Whole Blood 244 mg/dL (75-99)
[2019-02-27] MEDS: FUROSEMIDE 20 MG TAB PO SCH (20:28)
[2019-02-27] MEDS ORDERED: INSULIN DETEMIR (LEVEMIR) 100 UNIT/ML SYR SQ SCH (21:00)
[2019-02-27] MEDS ORDERED: METOPROLOL TARTRATE 25 MG TAB PO SCH (21:00)
[2019-02-27] MEDS ORDERED: RANOLAZINE 500 MG TAB.ER.12H PO SCH (21:00)
[2019-02-27 23:07] LABS: Glucose,Whole Blood 173 mg/dL (75-99)
--- NOTE | 2019-02-27 23:43 | XR ---
EXAMINATION TYPE: XR chest 1V portable DATE OF EXAM: 02/27/2019 COMPARISON: 02/26/2019 HISTORY: Short of breath TECHNIQUE: Single frontal view of the chest is obtained. FINDINGS: Heart is enlarged. There is left axillary pacemaker. There is no gross heart failure. Ther e is slight blunting right costophrenic angle. There are no hilar masses. There are chest leads. Ther e is possible new infiltrate right lower lobe. IMPRESSION: Cardiomegaly. Minimal pulmonary congestion but no overt heart failure. There is probably some new airspace infiltrate right lower lobe compared to yesterday.
[2019-02-28 00:15] LABS: Glucose,Whole Blood 155 mg/dL (75-99)
[2019-02-28] MEDS: HEPARIN SODIUM,PORCINE 5,000 UNIT/ML 1 ML VIAL SQ SCH ×2 (01:27→09:18)
[2019-02-28 01:50] LABS: Glucose,Whole Blood 144 mg/dL (75-99)
[2019-02-28] MEDS: NITROGLYCERIN SL TABS 0.4 MG TAB SUBLINGUAL PRN ×3 (01:51→02:01)
[2019-02-28] MEDS ORDERED: HYDROmorphone 0.5 MG/0.5 ML SYRINGE IM STA ×2 (02:32→08:23)
[2019-02-28] MEDS ORDERED: SODIUM CHLORIDE 0.9% 250 ML IV SCH (03:00)
[2019-02-28] MEDS ORDERED: SODIUM CHLORIDE 0.9% 1,000 ML IV SCH (04:30)
[2019-02-28 06:00] LABS: Anisocytosis Moderate; HCT 33.9 % (39.0-53.0); HGB 10.6 gm/dL (13.0-17.5); Hypochromasia Marked; MCH 27.7 pg (25.0-35.0); MCHC 31.2 g/dL (31.0-37.0); MCV 88.9 fL (80.0-100.0); Mean Platelet Volume 6.5; Platelet Count 217 k/uL (150-450); Poikilocytosis Slight; RBC 3.82 m/uL (4.30-5.90); RDW 20.9 % (11.5-15.5); WBC 5.7 k/uL (3.8-10.6)
[2019-02-28 06:16] LABS: Calcium 8.8 mg/dL (8.4-10.2); Potassium 4.6 mmol/L (3.5-5.1)
[2019-02-28] MEDS ORDERED: PANTOPRAZOLE 40 MG TABLET PO SCH (07:30)
[2019-02-28 07:34] LABS: Glucose,Whole Blood 129 mg/dL (75-99)
[2019-02-28] MEDS ORDERED: FUROSEMIDE 10 MG/ML 4 ML VIAL IV STA (08:30)
[2019-02-28] MEDS ORDERED: ONDANSETRON 4 MG/2 ML VIAL IVP PRN (08:37)
[2019-02-28] MEDS: INSULIN ASPART (NovoLOG) 100 UNIT/ML VIAL SQ SCH ×2 (08:39→12:20)
--- NOTE | 2019-02-28 08:54 | XR ---
EXAMINATION TYPE: XR chest 1V DATE OF EXAM: 02/28/2019 COMPARISON: 02/27/2019 HISTORY: Congestive heart failure TECHNIQUE: Single frontal view of the chest is obtained. FINDINGS: Hazy right basilar opacity is noted. No pulmonary vascular congestion. Cardiomediastinal s ilhouette is enlarged with left-sided cardiac device. Osseous structures are grossly intact. Probable trace right pleural effusion. Left costophrenic angle is incompletely viewed but overall appears augustine ar. IMPRESSION: Right basilar airspace disease. Unifocal pneumonia should be considered given no pulmona ry vascular congestion is identified.
[2019-02-28] MEDS ORDERED: NON FORMULARY DRUG (Rosuvastatin Calcium [Crestor] 40 MG) PO SCH (09:00)
[2019-02-28] MEDS ORDERED: ASPIRIN 81 MG PO SCH (09:00)
[2019-02-28] MEDS ORDERED: ISOSORBIDE MONONITRATE ER 30 MG TAB.ER.24H PO SCH (09:00)
[2019-02-28] MEDS ORDERED: NITROGLYCERIN OINT 1 INCH/GM PACKET TOPICAL SCH (09:00)
[2019-02-28] MEDS ORDERED: TAMSULOSIN 0.4 MG CAP.ER.24H PO SCH (09:00)
[2019-02-28] MEDS: FUROSEMIDE 20 MG TAB PO SCH (09:08)
[2019-02-28] MEDS: GABAPENTIN 300 MG CAP PO SCH (09:20)
[2019-02-28] MEDS: DOXYCYCLINE 100 MG CAP PO SCH (09:20)
[2019-02-28] MEDS: ASPIRIN 81 MG PO SCH (09:22)
[2019-02-28] MEDS: METOPROLOL TARTRATE 25 MG TAB PO SCH (09:22)
[2019-02-28] MEDS: TAMSULOSIN 0.4 MG CAP.ER.24H PO SCH (09:23)
[2019-02-28] MEDS: RANOLAZINE 500 MG TAB.ER.12H PO SCH (09:35)
--- NOTE | 2019-02-28 10:06 | P.CNPUL ---
History of Present Illness Consult date: 02/28/19 Requesting physician: Karlo Bradshaw Reason for consult: dyspnea, cough, pneumonia, abnormal CXR/CT Chief complaint: Fever, sharp chest pain History of present illness: This is a 43-year-old white male patient with extensive medical history including ischemic cardiomyopathy with the EF of less than 20%, status post AICD placement, coronary artery disease with stent placement, several MIs in the past, history of recurrent rest requiring CPR and resuscitation a few months ago, hypertension, depression, diabetes mellitus, mild intermittent bronchial asthma, history of previous CVA. Patient has been hospitalized most of the summer, fall, at [facility], and most recently at the [facility] acute exacerbation of systolic congestive heart failure. Patient has previously followed with a heel cementer from the [facility], however he was not satisfied with the management, and went to the [facility] for second opinion and was reportedly being considered for heart transplantation. However a week ago she left the [facility] AGAINST MEDICAL ADVICE, because according to him he was very discouraged. He did diurese, over 35 pounds. We had also seen the patient in consultation in November 2018, for recurrent right-sided pleural effusion, he was diuresed, and did not require thoracentesis at that time. She had previously had a right-sided thoracentesis at [facility] in November, and the cytology of pleural fluid analysis and cultures are not known to us. On 02/26/2019 patient presented to the hospital for evaluation of sharp and heavy chest pain there was near the mid sternum, and radiating to his left chest, through to his back into his jaw that lasted for several hours, with no exacerbating or alleviating factors. Patient reports also feeling cold and hot and sweaty at home, he thinks he had a fever, but she did not have a thermometer did not take his temperature, he reports being sick for 2 days, occasional cough with no significant sputum production, he was nauseous, and had episodes of vomiting. Chest x-ray showed atelectasis at the right lower lobe versus mild infiltrate, no signs of fluid overloa, pleural effusions. Patient has been afebrile while inpatient, work showed normal white count of 4.8, hemoglobin of 10.6, INR is 1.1, sodium is 131, potassium is 4.3, chloride is 101, CO2 is 18, B1 is 22, creatinine is 0.88, troponins were negative 4, proBNP was 5930. Patient was admitted to [facility] care, and was started on IV diuretics, and antibiotics. Over patient became hypotensive last night with a systolic in the 70s, and had to be transferred to the intensive care unit. His IV diuretics have been transitioned to oral. Patient received IV fluid bolus of 250 ML, and is receiving gentle hydration with 0.9 normal saline at a rate of 50 ML per hour, patient is also receiving IV Dilaudid for chest pain. Patient has a chronic pain related to his diabetic neuropathy, and patient takes [place] on a regular basis. He seen in the intensive care unit, he is hemodynamically stable, current blood pressure is 99/65, with a mean of 76, and 2 L of oxygen with a pulse ox of 90-100%, his been afebrile, respirations are nonlabored, patient is still complaining of a residual left-sided chest pain, but states that the Dilaudid has been helping, and in the paced rhythm on the monitor, admission EKG has shown no acute ischemic changes. Cardiology is following, and patient is receiving Ranexa, Nitropatch, and oral Lasix 20 mg twice daily. Patient states that he would like to be transferred to the [facility], as he is a patient there and he is being considered for cardiac transplantation. Review of Systems All systems: negative Constitutional: Denies chills, Denies fever Eyes: denies blurred vision, denies pain Ears, nose, mouth and throat: Denies headache, Denies sore throat Cardiovascular: Reports chest pain, Reports decreased exercise tolerance, Reports dyspnea on exertion, Denies shortness of breath Respiratory: Reports dyspnea, Denies cough Gastrointestinal: Denies abdominal pain, Denies diarrhea, Denies nausea, Denies vomiting Musculoskeletal: Denies myalgias Integumentary: Denies pruritus, Denies rash Neurological: Denies numbness, Denies weakness Psychiatric: Denies anxiety, Denies depression Endocrine: Denies fatigue, Denies weight change Past Medical History Past Medical History: Asthma, Coronary Artery Disease (CAD), Chest Pain / Angina, Heart Failure, CVA/TIA, Diabetes Mellitus, Deep Vein Thrombosis (DVT), GERD/Reflux, Hyperlipidemia, Hypertension, Myocardial Infarction ([place]), Osteoarthritis (OA), Pneumonia, Skin Disorder, Sleep Apnea/CPAP/BIPAP Additional Past Medical History / Comment(s): multiple vessel CAD, ischemic cardiomyopathy, diabetic neuropathy bilateral hands and feet, hypertensive cardiovascular disease, SHELIA with no device, chronic gastritis, degenerative disc disease, chronic back pain, depression with hx of suicide attempts, gastroparesis, psoriasis, UTI, migraines, TIA, PUD, hiatal hernia, L rotator cuff tear, bronchitis, pseudoaneurysm L groin post procedure. 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 Last Myocardial Infarction Date:: October 2017 History of Any Multi-Drug Resistant Organisms: MRSA Date of last positivie culture/infection: 11/05/17 (Culture done at [facility]) MDRO Source:: legs Past Surgical History: AICD, Appendectomy, Cholecystectomy, Heart Catheterization With Stent, Hernia Repair Additional Past Surgical History / Comment(s): Pt has had multiple cardiac procedures- caths/stents/PTCA, last stent placed at 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 Date of Last Stent Placement:: 10/2018 Type of Cardiac Device: Biventricular Pacemaker, AICD Device Placement Date:: 09/19/15 Past Psychological History: Anxiety, Depression, PTSD Additional Psychological History / Comment(s): Several suicide attempts with use of insulin. PTSD - in 2000 his 3mo old son in his arms (born 2 months premature). He has a walker at home if needed. He drives.pt has 2 adult stepchildren at home with him most of the time. Spouse manages his medications. Smoking Status: Never smoker Past Alcohol Use History: None Reported Additional Past Alcohol Use History / Comment(s): Past alcohol abuse - pt states he quit drinking over 8yrs ago. Past Drug Use History: None Reported Additional Drug Use History / Comment(s): Pt has smoked marijuana in the past - last smoked in 1999. - Past Family History Mother Family Medical History: Coronary Artery Disease (CAD), Myocardial Infarction ([place]) Additional Family Medical History / Comment(s): 7 [place] and faulty heart valve. Pt does not know the age when mother had her KY's. Father History Unknown: Yes Additional Family Medical History / Comment(s): Does not know who father is. Brother(s) Family Medical History: Cancer, Congestive Heart Failure (CHF), Myocardial Infarction ([place]) Additional Family Medical History / Comment(s): Parkinsons. Pt does not know at what age his brother had an [place]. Patient's other brother has lung CA Patient has Family Medical History: No Reported History Additional Family Medical History / Comment(s): There is a strong family history for heart disease, hypertension, and diabetes. Medications and Allergies Home Medications Medication Instructions Recorded Confirmed Type Pantoprazole [Protonix] 40 mg PO DAILY 04/01/18 02/26/19 History Aspirin EC [Ecotrin Low Dose] 81 mg PO DAILY 07/20/18 02/26/19 History Ranolazine [Ranexa] 500 mg PO BID 11/06/18 02/26/19 History Nitroglycerin Sl Tabs [Nitrostat] 0.4 mg SUBLINGUAL Q5M PRN 11/08/18 02/26/19 History Tamsulosin HCl [Flomax] 0.4 mg PO DAILY 11/08/18 02/26/19 History Rosuvastatin Calcium [Crestor] 40 mg PO DAILY 12/10/18 02/26/19 History Metoprolol Tartrate [Lopressor] 25 mg PO BID 01/01/19 02/26/19 History Furosemide [Lasix] 20 mg PO BID 02/24/19 02/27/19 History Insulin Detemir (Levemir) [Levemir] 20 unit SQ HS 02/24/19 02/27/19 History Isosorbide Mononitrate ER [Imdur] 30 mg PO DAILY 02/24/19 02/26/19 History Magnesium Oxide 400 mg PO BID 02/24/19 02/26/19 History Apixaban [Eliquis] 5 mg PO BID 02/27/19 02/27/19 History Bumetanide [BUMEX] 1 mg PO DAILY 02/27/19 02/27/19 History Carvedilol [Coreg] 6.25 mg PO DAILY 02/27/19 02/27/19 History Clopidogrel [Plavix] 75 mg PO DAILY 02/27/19 02/27/19 History Gabapentin [Neurontin] 600 mg PO TID 02/27/19 02/27/19 History Lisinopril [Zestril] 2.5 mg PO DAILY 02/27/19 02/27/19 History Allergies Allergy/AdvReac Type Severity Reaction Status Date / Time erythromycin base Allergy Severe Rash/Hives Verified 02/26/19 21:37 [Erythromycin Base] cephalexin monohydrate Allergy Unknown Rash/Hives Verified 02/26/19 21:37 [From Keflex] codeine Allergy Unknown Unknown Verified 02/26/19 21:37 meclizine Allergy Unknown Unknown Verified 02/26/19 21:37 Penicillins Allergy Unknown Rash/Hives Verified 02/26/19 21:37 shellfish derived Allergy Unknown Anaphylaxis Verified 02/26/19 21:37 adhesive tape Allergy Rash/Hives Verified 02/26/19 21:37 Fish Containing Products Allergy Anaphylaxis Verified 02/26/19 21:37 [Fish] Iodinated Contrast Media Allergy Anaphylaxis Verified 02/26/19 21:37 silver Allergy Rash/Hives Verified 02/26/19 21:37 [From Tegaderm AG Mesh] naproxen AdvReac Unknown Compromises Verified 02/26/19 21:37 Kidney Function atorvastatin calcium AdvReac Myalgia Verified 02/26/19 21:37 [From Lipitor] hydrocodone [From [place]] AdvReac Rapid Verified 02/26/19 21:37 Heart Rate Physical Exam Vitals: Vital Signs Temp Pulse Pulse Resp BP BP Pulse Ox 02/28/19 07:00 90 14 109/48 100 02/28/19 06:00 84 17 106/82 99 02/28/19 05:00 84 14 111/82 98 02/28/19 04:00 97.8 F 89 14 117/89 99 02/28/19 03:00 85 20 101/74 98 02/28/19 02:00 97.5 F L 81 22 98/71 99 02/28/19 00:01 85 28 H 100 02/27/19 23:15 80 16 78/52 02/27/19 23:10 78 16 98/72 100 02/27/19 23:05 78 16 94/74 100 02/27/19 23:00 80 16 70/50 100 02/27/19 20:00 98.1 F 96 16 112/79 98 02/27/19 16:00 97.7 F 86 18 106/50 100 02/27/19 12:00 97.7 F 104 H 18 111/66 99 Intake and Output 02/27/19 02/28/19 02/28/19 22:59 06:59 14:59 Intake Total 666 200 50 Balance 666 200 50 Intake: IV 200 50 0.9NS 200 50 Oral 666 Other: Voiding Method Toilet # Voids 150 GENERAL EXAM: Alert, active, comfortable in no apparent distress. HEAD: Normocephalic/atraumatic. EYES: Normal reaction of pupils, equal size. Conjunctiva pink, sclera white. NOSE: Clear with pink turbinates. THROAT: No erythema or exudates. NECK: No masses, no JVD, no thyroid enlargement, no adenopathy. CHEST: No chest wall deformity. Symmetrical expansion. LUNGS: Equal air entry with coarse breath sounds, over left posterior midlung CVS: Regular rate and rhythm, normal S1 and S2, no gallops, no murmurs, no rubs ABDOMEN: Soft, nontender. No hepatosplenomegaly, normal bowel sounds, no guarding or rigidity. EXTREMITIES: No clubbing, no edema, no cyanosis, 2+ pulses and upper and lower extremities. MUSCULOSKELETAL: Muscle strength and tone normal. SPINE: No scoliosis or deformity SKIN: No rashes CENTRAL NERVOUS SYSTEM: Alert and oriented -3. No focal deficits, tone is normal in all 4 extremities. PSYCHIATRIC: Alert and oriented -3. Appropriate affect. Intact judgment and insight. Results - Laboratory Findings CBC and BMP: 02/28/19 05:28 02/28/19 05:28 PT/INR, D-dimer PT 11.7 sec (9.0-12.0) 02/26/19 21:18 INR 1.1 (<1.2) 02/26/19 21:18 Abnormal lab findings: Abnormal Labs 02/26/19 02/26/19 02/26/19 21:18 21:18 21:18 RBC 3.90 L Hgb 10.6 L Hct 33.9 L RDW 21.1 H Lymphocytes # 0.5 L APTT 19.4 L Sodium 131 L Carbon Dioxide 18 L BUN 22 H Creatinine Glucose 284 H POC Glucose (mg/dL) Total Bilirubin 1.4 H Alkaline Phosphatase 133 H Total Protein 5.8 L Albumin 3.3 L 02/27/19 02/27/19 02/27/19 05:49 11:44 16:35 RBC Hgb Hct RDW Lymphocytes # APTT Sodium Carbon Dioxide BUN Creatinine Glucose POC Glucose (mg/dL) 222 H 316 H 123 H Total Bilirubin Alkaline Phosphatase Total Protein Albumin 02/27/19 02/27/19 02/28/19 20:12 23:04 00:00 RBC Hgb Hct RDW Lymphocytes # APTT Sodium Carbon Dioxide BUN Creatinine Glucose POC Glucose (mg/dL) 244 H 173 H 155 H Total Bilirubin Alkaline Phosphatase Total Protein Albumin 02/28/19 02/28/19 02/28/19 01:16 05:28 05:28 RBC 3.82 L Hgb 10.6 L Hct 33.9 L RDW 20.9 H Lymphocytes # APTT Sodium 130 L Carbon Dioxide 16 L BUN 34 H Creatinine 1.29 H Glucose 126 H POC Glucose (mg/dL) 144 H Total Bilirubin Alkaline Phosphatase Total Protein Albumin 02/28/19 07:03 RBC Hgb Hct RDW Lymphocytes # APTT Sodium Carbon Dioxide BUN Creatinine Glucose POC Glucose (mg/dL) 129 H Total Bilirubin Alkaline Phosphatase Total Protein Albumin - Diagnostic Findings Chest x-ray: report reviewed, image reviewed Additional studies: EKG reviewed Assessment and Plan Plan: Assessment: #1. Chest pain, with negative troponins, no ischemic changes on EKG, possibly related to acute exacerbation of systolic congestive heart failure #2. No clear evidence of pneumonia, chest x-ray showing right basilar atelectasis, possible acute bronchitis #3. Recent hospitalization for acute exacerbation of systolic CHF at the [facility], and patient left AGAINST MEDICAL ADVICE one week ago #4. Ischemic cardiomyopathy with the EF of less than 20%, is post AICD placement, was being considered for cardiac transplantation #5. Previous history of cardiac arrest requiring CPR and resuscitation in November 2018 #6. Previous episodes of myocardial infarction #7. Coronary artery disease status post coronary artery stenting #8. Hypertension #9. Depression #10. History of CVA #11. Diabetes mellitus #12. History of mild intermittent bronchial asthma Plan: Continue oral Lasix, continue gentle hydration, hemodynamically stable, did not require vasopressor support. No clear evidence of pneumonia, send pro- calcitonin, continue current antibiotics, continue breathing treatments, and cardiology evaluation, EKG showed no acute ischemic changes, troponins have been negative. Patient is requesting transfer to the [facility] we will start the process this morning. Continue current medical treatment, GI and DVT prophylaxis. I performed a history & physical examination of the patient and discussed their management with my nurse practitioner, Beronica Núñez. I reviewed the nurse practitioner's note and agree with the documented findings and plan of care. Lung sounds are positive for bronchial sounds left mid lung. The findings and the impression was discussed with the patient. I attest to the documentation by the nurse practitioner. Time with Patient: Greater than 30
[2019-02-28] MEDS ORDERED: HYDROmorphone 0.5 MG/0.5 ML SYRINGE IVP PRN (10:49)
--- NOTE | 2019-02-28 11:47 | DS ---
DISCHARGE SUMMARY FINAL DIAGNOSES: 1. Congestive heart failure acute exacerbation acute on chronic systolic dysfunction ejection fraction less than 20% with ischemic cardiomyopathy. 2. Chest pain, possible unstable angina. 3. Possible bronchitis, unlikely pneumonia. 4. Obesity. 5. Hypertension. 6. History of myocardial infarction. 7. History of AICD. 8. History of cerebrovascular accident, transient ischemic attack. 9. History of gastroesophageal reflux disease. 10.Hypertension. 11.Hyperlipidemia. 12.History of pneumonia. 13.History of multivessel coronary artery disease. 14.History of diabetic peripheral neuropathy. 15.History of depression. 16.History of transient ischemic attack. 17.History of anxiety, depression, posttraumatic stress disorder. DISCHARGE DISPOSITION: The patient will be transferred to [facility] in stable condition, guarded prognosis. Total time taken 35 minutes. HISTORY OF PRESENT ILLNESS: This 43-year-old gentleman with past medical history of multiple medical problems was admitted with shortness of breath and some chest pains which were sharp and pressure type. The patient was monitored closely. Patient was given some Lasix but because of hypotension, patient was given IV fluids and transferred to ICU. Blood pressure is stabilized. The chest pain continued and Cardiology and Pulmonology evaluated the patient. Recommended the patient to be transferred to a tertiary care center. I discussed the case with [facility] Heart Failure team and the patient will be transferred to [facility] in stable condition, guarded prognosis. Please refer to the medication records and sheet for current medications. MMODL / IJN: [id number] /
[2019-02-28 12:05] LABS: Glucose,Whole Blood 176 mg/dL (75-99)
[2019-02-28] MEDS: MAGNESIUM OXIDE 400 MG TAB PO SCH (12:21)
[2019-02-28 13:31] VITALS: RESP 18; TEMP 98.4
--- NOTE | 2019-02-28 13:52 | CDI ---
Documentation Clarification Form Date: 02/28/2019 1:34:21 PM From: Divina Wilson RN, CCDS Admit Date: 02/27/2019 2:15:00 AM Patient Name: Ti Dunham Visit Number: [id number] ATTENTION: The Clinical Documentation Specialists (CDI) and [facility] Coding Staff appreciate your assistance in clarifying documentation. Please respond to the clarification below the line at the bottom and electronically sign. The CDI & [facility] Coding staff will review the response and follow-up if needed. Please note: Queries are made part of the Legal Health Record. If you have any questions, please contact the author of this message via ITS. Dr. Safia Clay An increasing BUN and Creatinine have been noted with a declining GFR. Please provide clinical significance History/Risk Factors: CAP, CHF, DM, HTN, [place], ischemic cardiomyopathy, HTN CVD 02/24/19 Patients baseline BUN/CR/GFR: 214/.71/>90 Clinical Indicators: 02/27 H&P: " elevated BNP patient is on 20 mg of Lasix patient the blood pressure goes down and goes into renal failure with the diuretic therapy." Current BUN: 22/34 Cr:.88/1.29 GFR :> 90/68 Treatment: 3 doses IVP Lasix 250 cc IVF Bolus followed by 0.9% NS @ 50 cc/hr In order to capture the severity of condition, please clarify if the condition signifies: Acute renal failure, Please specify etiology (if known): Cortical Necrosis Medullary Necrosis Tubular Necrosis Acute kidney injury Acute on chronic renal failure CKD Stage 1 GFR >90 CKD Stage 2 GFR 60-89 CKD Stage 3 GFR 30-59 CKD Stage 4 GFR 15-29 CKD Stage 5 GFR <15 Other, please specify Unable to determine (Last Revision: August 2017) Acute kidney injury MTDD
[2019-02-28 14:34] VITALS: BP 119/86; PULSE 85
--- NOTE | 2019-02-28 20:41 | CONS ---
CONSULTATION DATE OF SERVICE: 02/27/2019 and 02/28/2019 This gentleman was actually seen by me yesterday when he came into the hospital and I saw him yesterday afternoon, evaluated him and again I am seeing him today. This gentleman came in through the emergency room with complaints of having chest pain. His EKG revealed ventricular paced rhythm with atrial sensing, and no significant ST- segment changes were discernible, but this is inconclusive. This patient has been in and out of the hospital a lot. He has significant CAD, has multivessel PCI, also has an ICD. He has been having his health care at [facility] but recently switched over to [facility]. He told us that he had an admission to [facility], prolonged stay, diuresed over 30 pounds, and he has been discharged. However, his pain was atypical. Troponins were negative. He was resting comfortably. However, he had some orthostatic changes and therefore I suggested to cut back the diuretics; this was yesterday. Through the night he went and had a bowel movement and then had a near- syncopal spell, was hypovolemic, transferred to ICU. I saw him this morning in the ICU. His blood pressure was 130/70. I gave him some fluid bolus in the night. With this he improved. He has chest discomfort. Quality of the pain is very atypical. Troponin remains unremarkable. However, patient wishes to go to [facility]. Apparently he has been placed on a cardiac transplant list. I am therefore going to suggest that this transfer is probably a very good idea for future care. Also he should have his care at [facility] for his cardiac issues since he is now on the transplant list. Please refer to the detailed dictations from our group in the past. PAST MEDICAL HISTORY: 1. CAD with multivessel PCI. 2. History of ICD. 3. History of hospitalization in November with a cardiac arrest type picture. 4. History of sleep apnea syndrome. 5. Status post cholecystectomy, appendectomy and ICD placement. MEDICATIONS: Medications at home include: 1. Lasix. 2. Metoprolol. 3. Insulin. 4. Aspirin. 5. Ranolazine. 6. Flomax. 7. Protonix. PHYSICAL EXAMINATION: Today the blood pressure is 118/70. Pulse rate is about 70 per minute. HEENT unremarkable. Fundus was not examined by me. NECK: Supple. There is JVD. There is no carotid bruit. Heart exam reveals S1, S2 with a short systolic murmur. Distant heart sounds. Lungs reveal diminished air entry over both bases. ABDOMEN: Soft. Lower extremities reveal diminished pulses. CENTRAL NERVOUS SYSTEM: Grossly no focal deficits. IMPRESSION: 1. Unstable angina. 2. Hypovolemia. 3. Ischemic cardiomyopathy with ICD with multiple percutaneous coronary interventions in the past. RECOMMENDATIONS: Patient had an episode of hypotension, probably related to hypovolemia. He wishes to be transferred to [facility]. These arrangements are being made by Dr. Chavira. No new suggestion from a cardiac standpoint other than continuing his medications. Thank you very much for the consult. MMODL / IJN: [id number] /
== END 2019-02-28 14:26 | disposition short-term general hospital (02) | DRG 292 ==
LOC: EC 20:35 → 3SCARD 02-27 02:15 → 2SICU 02-27 23:51
PROVIDERS: ADMIT Internal Medicine; ATTEND Internal Medicine
DX: I11.0 Hypertensive heart disease with heart failure (principal); E87.1 Hypo-osmolality and hyponatremia; N17.9 Acute kidney failure, unspecified; I50.23 Acute on chronic systolic (congestive) heart failure; Z76.82 Awaiting organ transplant status; I95.9 Hypotension, unspecified; E11.43 Type 2 diabetes mellitus with diabetic autonomic (poly)neuropathy; E11.42 Type 2 diabetes mellitus with diabetic polyneuropathy; K31.84 Gastroparesis; E86.1 Hypovolemia; I25.110 Atherosclerotic heart disease of native coronary artery with unstable angina pectoris; E66.9 Obesity, unspecified; E78.5 Hyperlipidemia, unspecified; F32.9 Major depressive disorder, single episode, unspecified; F43.10 Post-traumatic stress disorder, unspecified; G47.33 Obstructive sleep apnea (adult) (pediatric); G89.29 Other chronic pain; I25.2 Old myocardial infarction; I25.5 Ischemic cardiomyopathy; J45.909 Unspecified asthma, uncomplicated; K21.9 Gastro-esophageal reflux disease without esophagitis; M19.90 Unspecified osteoarthritis, unspecified site; R55 Syncope and collapse; K29.50 Unspecified chronic gastritis without bleeding; L40.9 Psoriasis, unspecified; G43.909 Migraine, unspecified, not intractable, without status migrainosus; M54.9 Dorsalgia, unspecified; Z68.35 Body mass index [BMI] 35.0-35.9, adult; Z79.01 Long term (current) use of anticoagulants; Z79.02 Long term (current) use of antithrombotics/antiplatelets; Z79.4 Long term (current) use of insulin; Z79.82 Long term (current) use of aspirin; Z79.899 Other long term (current) drug therapy; Z86.73 Personal history of transient ischemic attack (TIA), and cerebral infarction without residual deficits; Z87.01 Personal history of pneumonia (recurrent); Z90.49 Acquired absence of other specified parts of digestive tract; Z95.5 Presence of coronary angioplasty implant and graft; Z95.810 Presence of automatic (implantable) cardiac defibrillator; Z86.74 Personal history of sudden cardiac arrest; Z88.1 Allergy status to other antibiotic agents; Z91.041 Radiographic dye allergy status; Z88.0 Allergy status to penicillin; Z91.013 Allergy to seafood; Z87.11 Personal history of peptic ulcer disease; Z86.14 Personal history of Methicillin resistant Staphylococcus aureus infection; Z87.440 Personal history of urinary (tract) infections; Z91.5 Personal history of self-harm; Z88.6 Allergy status to analgesic agent; Z88.5 Allergy status to narcotic agent; Z88.8 Allergy status to other drugs, medicaments and biological substances; Z86.718 Personal history of other venous thrombosis and embolism; Z90.79 Acquired absence of other genital organ(s); Z82.0 Family history of epilepsy and other diseases of the nervous system; Z82.49 Family history of ischemic heart disease and other diseases of the circulatory system; Z83.3 Family history of diabetes mellitus; Z80.9 Family history of malignant neoplasm, unspecified
CPT/HCPCS: 36415; 71045; 71046; 80048; 80053; 83735; 83880; 84145; 84484; 85025; 85027; 85610; 85730; 87040; 93005; 96365; 96375; 96376; 99285

== ENCOUNTER 2019-03-08 02:33 | Inpatient (IN) | payer MEDICARE, OTHER ==
--- NOTE | 2019-03-08 03:16 | ED ---
General Adult HPI - General Source: patient, RN notes reviewed, old records reviewed Mode of arrival: ambulatory Limitations: no limitations <Darvin Pearson - Last Filed: 03/08/19 03:43> <Radha Yanes - Last Filed: 03/08/19 06:49> - General Chief complaint: Psychiatric Symptoms Stated complaint: Suicidal Time Seen by Provider: 03/08/19 03:09 - History of Present Illness Initial comments: 43-year-old male patient with significant past medical history presents ED chief complaint of suicidal ideations, depression. Patient reports that tomorrow joseph the 18th anniversary of his son's . Patient reports is making him very depressed. Patient states that he thought about taking an overdose of his insulin in order to attempt to kill himself. Patient did not act on this. Denies any action to hurt himself or hurt any other people. Patient presents to ER for psychiatric evaluation. Denies any physical complaints. Systemic: Pt denies fatigue, fever/chills, rash. Pt denies weakness, night sweats, weight loss. Neuro: Pt denies headache, visual disturbances, syncope or pre-syncope. HEENT: Pt denies ocular discharge or irritation, otalgia, rhinorrhea, pharyngitis or notable lymphadenopathy. Cardiopulmonary: Pt denies chest pain, SOB, heart palpitations, dyspnea on exertion. Abdominal/GI: Pt denies abdominal pain, n/v/d. : Pt denies dysuria, burning w/ urination, frequency/urgency. Denies new onset urinary or bowel incontinence. MSK: Pt denies myalgia, loss of strength or function in extremities. Neuro: Pt denies new onset weakness, paresthesias. (Darvin Pearson) - Related Data Home Medications Medication Instructions Recorded Confirmed Pantoprazole [Protonix] 40 mg PO DAILY 04/01/18 02/26/19 Aspirin EC [Ecotrin Low Dose] 81 mg PO DAILY 07/20/18 02/26/19 Ranolazine [Ranexa] 500 mg PO BID 11/06/18 02/26/19 Nitroglycerin Sl Tabs [Nitrostat] 0.4 mg SUBLINGUAL Q5M PRN 11/08/18 02/26/19 Tamsulosin HCl [Flomax] 0.4 mg PO DAILY 11/08/18 02/26/19 Rosuvastatin Calcium [Crestor] 40 mg PO DAILY 12/10/18 02/26/19 Metoprolol Tartrate [Lopressor] 25 mg PO BID 01/01/19 02/26/19 Furosemide [Lasix] 20 mg PO BID 02/24/19 02/27/19 Insulin Detemir (Levemir) [Levemir] 20 unit SQ HS 02/24/19 02/27/19 Isosorbide Mononitrate ER [Imdur] 30 mg PO DAILY 02/24/19 02/26/19 Magnesium Oxide 400 mg PO BID 02/24/19 02/26/19 Apixaban [Eliquis] 5 mg PO BID 02/27/19 02/27/19 Bumetanide [BUMEX] 1 mg PO DAILY 02/27/19 02/27/19 Carvedilol [Coreg] 6.25 mg PO DAILY 02/27/19 02/27/19 Clopidogrel [Plavix] 75 mg PO DAILY 02/27/19 02/27/19 Gabapentin [Neurontin] 600 mg PO TID 02/27/19 02/27/19 Lisinopril [Zestril] 2.5 mg PO DAILY 02/27/19 02/27/19 Allergies Allergy/AdvReac Type Severity Reaction Status Date / Time erythromycin base Allergy Severe Rash/Hives Verified 02/26/19 21:37 [Erythromycin Base] cephalexin monohydrate Allergy Unknown Rash/Hives Verified 02/26/19 21:37 [From Keflex] codeine Allergy Unknown Unknown Verified 02/26/19 21:37 meclizine Allergy Unknown Unknown Verified 02/26/19 21:37 Penicillins Allergy Unknown Rash/Hives Verified 02/26/19 21:37 shellfish derived Allergy Unknown Anaphylaxis Verified 02/26/19 21:37 adhesive tape Allergy Rash/Hives Verified 02/26/19 21:37 Fish Containing Products Allergy Anaphylaxis Verified 02/26/19 21:37 [Fish] Iodinated Contrast Media Allergy Anaphylaxis Verified 02/26/19 21:37 silver Allergy Rash/Hives Verified 02/26/19 21:37 [From Tegaderm AG Mesh] naproxen AdvReac Unknown Compromises Verified 02/26/19 21:37 Kidney Function atorvastatin calcium AdvReac Myalgia Verified 02/26/19 21:37 [From Lipitor] hydrocodone [From [place]] AdvReac Rapid Verified 02/26/19 21:37 Heart Rate Review of Systems ROS Other: All systems not noted in ROS Statement are negative. <Darvin Pearson - Last Filed: 03/08/19 03:43> ROS Other: All systems not noted in ROS Statement are negative. <Radha Ynaes - Last Filed: 03/08/19 06:49> ROS Statement: Those systems with pertinent positive or pertinent negative responses have been documented in the HPI. Past Medical History Past Medical History: Asthma, Coronary Artery Disease (CAD), Chest Pain / Angina, Heart Failure, CVA/TIA, Diabetes Mellitus, Deep Vein Thrombosis (DVT), GERD/Reflux, Hyperlipidemia, Hypertension, Myocardial Infarction (AL), Osteoarthritis (OA), Pneumonia, Skin Disorder, Sleep Apnea/CPAP/BIPAP Additional Past Medical History / Comment(s): multiple vessel CAD, ischemic cardiomyopathy, diabetic neuropathy bilateral hands and feet, hypertensive cardiovascular disease, SHELIA with no device, chronic gastritis, degenerative disc disease, chronic back pain, depression with hx of suicide attempts, gastroparesis, psoriasis, UTI, migraines, TIA, PUD, hiatal hernia, L rotator cuff tear, bronchitis, pseudoaneurysm L groin post procedure. 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 Date of Last Stent Placement:: 10/2018 Type of Cardiac Device: Biventricular Pacemaker, AICD Device Placement Date:: 09/19/15 Past Psychological History: Anxiety, Depression, PTSD Smoking Status: Never smoker Past Alcohol Use History: None Reported Past Drug Use History: None Reported - Past Family History Mother Family Medical History: Coronary Artery Disease (CAD), Myocardial Infarction (AL) Additional Family Medical History / Comment(s): 7 AL and faulty heart valve. Pt does not know the age when mother had her AL's. Father History Unknown: Yes Additional Family Medical History / Comment(s): Does not know who father is. Brother(s) Family Medical History: Cancer, Congestive Heart Failure (CHF), Myocardial Infarction (AL) Additional Family Medical History / Comment(s): Parkinsons. Pt does not know at what age his brother had an AL. Patient's other brother has lung CA Patient has Family Medical History: No Reported History Additional Family Medical History / Comment(s): There is a strong family history for heart disease, hypertension, and diabetes. <Darvin Pearson - Say Filed: 03/08/19 03:43> General Exam Limitations: no limitations <Darvin Pearson - Say Filed: 03/08/19 03:43> - General Exam Comments Initial Comments: Constitutional: NAD, AOX3, Pt has pleasant affect. HEENT: NC/AT, trachea midline, neck supple, no lymphadenopathy. Posterior pharynx non erythematous, without exudates. External ears appear normal, without discharge. Mucous membranes moist. Eyes PERRLA, EOM intact. There is no scleral icterus. No pallor noted. Cardiopulmonary: RRR, no murmurs, rubs or gallops, no JVD noted. Lungs CTAB in anterior and posterior hendrix. No peripheral edema. Abdominal exam: Abdomen soft and non-distended. Abdomen non-tender to palpation in all 4 quadrants. Bowel sounds active in LLQ. No hepatosplenomegaly. No ecchymosis Neuro: CN II-XII grossly intact. No nuchal rigidity. No raccon eyes, no batres sign, no hemotympanum. No cervical spinal tenderness. MSK: No posterior calf tenderness bilaterally, homans sign negative bilaterally. Posterior tibialis and radial pulse +2 bilaterally. Sensation intact in upper and lower extremities. Full active ROM in upper and lower extremities, 5/5 st regnth. (Darvin Pearson) Course Vital Signs 03/08/19 03/08/19 03/08/19 02:44 03:23 05:00 Temperature 97.9 F Pulse Rate 113 H 111 H 115 H Respiratory 18 20 Rate Blood Pressure 97/65 121/71 O2 Sat by Pulse 98 98 97 Oximetry 03/08/19 06:00 Temperature Pulse Rate 120 H Respiratory 20 Rate Blood Pressure 114/76 O2 Sat by Pulse 97 Oximetry Medical Decision Making <Darvin Pearson - Last Filed: 03/08/19 03:43> - Lab Data Result diagrams: 03/08/19 05:42 03/08/19 05:42 <Radha Yanes - Last Filed: 03/08/19 06:49> - Medical Decision Making Patient signed out to attending physician Dr. Yanes pending psychiatric evaluation. (Darvin Pearson) I personally saw and evaluated the patient, this is a chronically ill gentleman who is had multiple cardiac events including cardiac arrest in the past 6 months. Per his medical record hospice was consulted during his admission at [facility] in November however patient does not recall this. Patient states that he is never discussed hospice or out of care. Patient states that he is no longer getting care at [facility], and reports states there is nothing to do for his heart. At this time patient states he feels like he is just beating at that horse because he knows his heart is failing. Patient also states that March 10 is the anniversary of his son's and this is causing significant emotional distress. She was evaluated by psychiatry who recommends patient be admitted medically due to his multiple medical comorbidities and high risk status. Patient care was discussed with justin, the mid-level provider for [facility] dena with this plan. (Radha Yanes) - Lab Data Lab Results 03/08/19 03/08/19 03/08/19 Range/Units 03:42 04:36 04:36 WBC (3.8-10.6) k/uL RBC (4.30-5.90) m/uL Hgb (13.0-17.5) gm/dL Hct (39.0-53.0) % MCV (80.0-100.0) fL MCH (25.0-35.0) pg MCHC (31.0-37.0) g/dL RDW (11.5-15.5) % Plt Count (150-450) k/uL Neutrophils % % Lymphocytes % % Monocytes % % Eosinophils % % Basophils % % Neutrophils # (1.3-7.7) k/uL Lymphocytes # (1.0-4.8) k/uL Monocytes # (0-1.0) k/uL Eosinophils # (0-0.7) k/uL Basophils # (0-0.2) k/uL Hypochromasia Anisocytosis Microcytosis Sodium (137-145) mmol/L Potassium (3.5-5.1) mmol/L Chloride (98-107) mmol/L Carbon Dioxide (22-30) mmol/L Anion Gap mmol/L BUN (9-20) mg/dL Creatinine (0.66-1.25) mg/dL Est GFR (CKD-EPI)AfAm (>60 ml/min/1.73 sqM) Est GFR (CKD-EPI)NonAf (>60 ml/min/1.73 sqM) Glucose (74-99) mg/dL POC Glucose (mg/dL) 267 H (75-99) mg/dL POC Glu Watch [employer] Inspector ID Reji Aquino Calcium (8.4-10.2) mg/dL Total Bilirubin (0.2-1.3) mg/dL AST (17-59) U/L ALT (21-72) U/L Alkaline Phosphatase (38-126) U/L Total Protein (6.3-8.2) g/dL Albumin (3.5-5.0) g/dL Urine Color Yellow Urine Appearance Cloudy (Clear) Urine pH 5.0 (5.0-8.0) Ur Specific [place] 1.013 (1.001-1.035) Urine Protein Trace H (Negative) Urine Glucose (UA) Negative (Negative) Urine Ketones Negative (Negative) Urine Blood Small H (Negative) Urine Nitrite Negative (Negative) Urine Bilirubin Negative (Negative) Urine Urobilinogen <2.0 (<2.0) mg/dL Ur Leukocyte Esterase Large H (Negative) Urine WBC >182 H (0-5) /hpf Urine WBC Clumps Many H (None) /hpf Urine Bacteria Many H (None) /hpf Urine Opiates Screen Not Detected (NotDetected) Ur Oxycodone Screen Not Detected (NotDetected) Urine Methadone Screen Not Detected (NotDetected) Ur Propoxyphene Screen Not Detected (NotDetected) Ur Barbiturates Screen Not Detected (NotDetected) U Tricyclic Antidepress Not Detected (NotDetected) Ur Phencyclidine Scrn Not Detected (NotDetected) Ur Amphetamines Screen Not Detected (NotDetected) U Methamphetamines Scrn Not Detected (NotDetected) U Benzodiazepines Scrn Not Detected (NotDetected) Urine Cocaine Screen Not Detected (NotDetected) U Marijuana (THC) Screen Not Detected (NotDetected) 03/08/19 03/08/19 Range/Units 05:42 05:42 WBC 8.8 (3.8-10.6) k/uL RBC 4.27 L (4.30-5.90) m/uL Hgb 11.5 L (13.0-17.5) gm/dL Hct 36.6 L (39.0-53.0) % MCV 85.8 (80.0-100.0) fL MCH 27.0 (25.0-35.0) pg MCHC 31.5 (31.0-37.0) g/dL RDW 19.4 H (11.5-15.5) % Plt Count 245 (150-450) k/uL Neutrophils % 81 % Lymphocytes % 8 % Monocytes % 6 % Eosinophils % 2 % Basophils % 1 % Neutrophils # 7.1 (1.3-7.7) k/uL Lymphocytes # 0.7 L (1.0-4.8) k/uL Monocytes # 0.5 (0-1.0) k/uL Eosinophils # 0.2 (0-0.7) k/uL Basophils # 0.1 (0-0.2) k/uL Hypochromasia Slight Anisocytosis Slight Microcytosis Slight Sodium 123 L (137-145) mmol/L Potassium 4.8 (3.5-5.1) mmol/L Chloride 87 L (98-107) mmol/L Carbon Dioxide 23 (22-30) mmol/L Anion Gap 13 mmol/L BUN 41 H (9-20) mg/dL Creatinine 0.82 (0.66-1.25) mg/dL Est GFR (CKD-EPI)AfAm >90 (>60 ml/min/1.73 sqM) Est GFR (CKD-EPI)NonAf >90 (>60 ml/min/1.73 sqM) Glucose 274 H (74-99) mg/dL POC Glucose (mg/dL) (75-99) mg/dL POC Glu Watch [employer] Inspector ID Calcium 8.9 (8.4-10.2) mg/dL Total Bilirubin 0.8 (0.2-1.3) mg/dL AST 27 (17-59) U/L ALT 35 (21-72) U/L Alkaline Phosphatase 230 H (38-126) U/L Total Protein 6.2 L (6.3-8.2) g/dL Albumin 3.5 (3.5-5.0) g/dL Urine Color Urine Appearance (Clear) Urine pH (5.0-8.0) Ur Specific [place] (1.001-1.035) Urine Protein (Negative) Urine Glucose (UA) (Negative) Urine Ketones (Negative) Urine Blood (Negative) Urine Nitrite (Negative) Urine Bilirubin (Negative) Urine Urobilinogen (<2.0) mg/dL Ur Leukocyte Esterase (Negative) Urine WBC (0-5) /hpf Urine WBC Clumps (None) /hpf Urine Bacteria (None) /hpf Urine Opiates Screen (NotDetected) Ur Oxycodone Screen (NotDetected) Urine Methadone Screen (NotDetected) Ur Propoxyphene Screen (NotDetected) Ur Barbiturates Screen (NotDetected) U Tricyclic Antidepress (NotDetected) Ur Phencyclidine Scrn (NotDetected) Ur Amphetamines Screen (NotDetected) U Methamphetamines Scrn (NotDetected) U Benzodiazepines Scrn (NotDetected) Urine Cocaine Screen (NotDetected) U Marijuana (THC) Screen (NotDetected) Disposition <Darvin Pearson J - Last Filed: 03/08/19 03:43> <Rahda Yanes - Last Filed: 03/08/19 06:49> Clinical Impression: Depressed Disposition: ADMITTED IP TO THIS [facility] Condition: Serious Referrals: Junie New MD [Primary Care Provider] - 1-2 days
[2019-03-08 03:46] LABS: Glucose,Whole Blood 267 mg/dL (75-99)
[2019-03-08 04:53] LABS: Amphetamine Screen,Urine Not Detected (NotDetected); Barbiturate Screen,Urine Not Detected (NotDetected); Benzodiazepines Screen,Urine Not Detected (NotDetected); Cocaine Screen,Urine Not Detected (NotDetected); Methadone Screen, Urine Not Detected (NotDetected); Opiate Screen,Urine Not Detected (NotDetected); Oxycodone Screen, Urine Not Detected (NotDetected); Phencyclidine Screen,Urine Not Detected (NotDetected); Tricyclic Antidepressant,Urine Not Detected (NotDetected); Urn Cannabinoid Scrn Not Detected (NotDetected)
[2019-03-08 05:40] LABS: Appearance,Urine Cloudy (Clear); Bacteria,Urine Many /hpf; Bilirubin,Urine Negative (Negative); Blood,Urine Small (Negative); Color,Urine Yellow; Glucose,Urine (UA) Negative (Negative); Ketones,Urine Negative (Negative); Leukocyte Esterase,Urine Large (Negative); Nitrite,Urine Negative (Negative); Protein,Urine Trace (Negative); Specific Gravity,Urine 1.013 (1.001-1.035); Urobilinogen,Urine <2.0 mg/dL (<2.0); WBC,Urine >182 /hpf (0-5)
[2019-03-08 05:50] LABS: Anisocytosis Slight; Basophils # (A) 0.1 k/uL (0-0.2); Basophils % (A) 1 %; Eosinophils # (A) 0.2 k/uL (0-0.7); Eosinophils % (A) 2 %; HCT 36.6 % (39.0-53.0); HGB 11.5 gm/dL (13.0-17.5); Hypochromasia Slight; Lymphocytes # (A) 0.7 k/uL (1.0-4.8); Lymphocytes % (A) 8 %; MCHC 31.5 g/dL (31.0-37.0); MCV 85.8 fL (80.0-100.0); Mean Platelet Volume 6.8; Microcytosis Slight; Monocytes # (A) 0.5 k/uL (0-1.0); Monocytes % (A) 6 %; Neutrophils # (A) 7.1 k/uL (1.3-7.7); Neutrophils % (A) 81 %; Platelet Count 245 k/uL (150-450); RBC 4.27 m/uL (4.30-5.90); RDW 19.4 % (11.5-15.5); WBC 8.8 k/uL (3.8-10.6)
[2019-03-08 06:05] LABS: ALT 35 U/L (21-72); AST 27 U/L (17-59); African American GFR (CKD) >90 (>60 ml/min/1.73 sqM); Albumin 3.5 g/dL (3.5-5.0); Alkaline Phosphatase 230 U/L (38-126); Anion Gap 13 mmol/L; Blood Urea Nitrogen 41 mg/dL (9-20); Calcium 8.9 mg/dL (8.4-10.2); Carbon Dioxide 23 mmol/L (22-30); Chloride 87 mmol/L (98-107); Glucose 274 mg/dL (74-99); Potassium 4.8 mmol/L (3.5-5.1); Sodium 123 mmol/L (137-145); Total Bilirubin 0.8 mg/dL (0.2-1.3); Total Protein 6.2 g/dL (6.3-8.2)
[2019-03-08] MEDS ORDERED: NALOXONE 0.4 MG/ML 1 ML VIAL IV PRN (06:41)
[2019-03-08] MEDS ORDERED: MORPHINE SULFATE 4 MG/ML SYRINGE IV PRN (06:41)
[2019-03-08] MEDS: HYDROmorphone 1 MG/ML 1 ML SYRINGE IVP PRN ×2 (07:30→10:50)
[2019-03-08 08:46] LABS: Creatine Kinase MB 1.6 ng/mL (0.0-2.4)
--- NOTE | 2019-03-08 11:34 | P.CRDCN ---
<Nathaly Shukla E - Last Filed: 03/08/19 11:09> History of Present Illness Consult date: 03/08/19 Requesting physician: Safia Clay Chief complaint: depression History of present illness: this is a 43-year-old gentleman with known history of coronary artery disease and multivessel PCI, PE a cardiac arrest, ischemic cardiomyopathy status post AICD implant, hyperlipidemia, prior myocardial infarction, hypertension, prior CVA, and diabetes, depression, DVT and prior PE in the past. Presented to the emergency room with suicidal ideation . apparently the patient is quite depressed because the anniversary of his son's is coming up. He did state that if he was released home he would overdose on insulin, he was evaluated by psychiatry in the emergency room and admitted. He denies having any chest discomfort, his breathing is stable. Cardiology consultation was requested basically because patient has history of heart disease. He denies any chest discomfort.his breathing is overall stable.EKG on presentation here showed a sensed V paced rhythm.blood pressure 112/60 with a heart rate in the 100, 97% on room air.White blood cell count 8.8, hemoglobin 11.5, platelet count 245. Sodium 123, potassium 4.8, BUN 41 and creatinine 0.8.drug screen was negative. UA showed large amount of leukocyte Estrace and bacteria.at the time of our examination, patient appeared to be quite depressed, no cardiac issues at this time. Past Medical History Past Medical History: Asthma, Coronary Artery Disease (CAD), Chest Pain / Angina, Heart Failure, CVA/TIA, Diabetes Mellitus, Deep Vein Thrombosis (DVT), GERD/Reflux, Hyperlipidemia, Hypertension, Myocardial Infarction (FL), Osteoarthritis (OA), Pneumonia, Skin Disorder, Sleep Apnea/CPAP/BIPAP Additional Past Medical History / Comment(s): multiple vessel CAD, ischemic cardiomyopathy, diabetic neuropathy bilateral hands and feet, hypertensive cardiovascular disease, SHELIA with no device, chronic gastritis, degenerative disc disease, chronic back pain, depression with hx of suicide attempts, gastroparesis, psoriasis, UTI, migraines, TIA, PUD, hiatal hernia, L rotator cuff tear, bronchitis, pseudoaneurysm L groin post procedure. 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 Date of Last Stent Placement:: 10/2018 Type of Cardiac Device: Biventricular Pacemaker, AICD Device Placement Date:: 09/19/15 Past Psychological History: Anxiety, Depression, PTSD Additional Psychological History / Comment(s): Several suicide attempts with use of insulin. PTSD - in 2000 his 3mo old son in his arms (born 2 months premature). He has a walker at home if needed. He drives.pt has 2 adult stepchildren at home with him most of the time. Spouse manages his medications. Smoking Status: Never smoker Past Alcohol Use History: None Reported Additional Past Alcohol Use History / Comment(s): Past alcohol abuse - pt states he quit drinking over 8yrs ago. Past Drug Use History: None Reported Additional Drug Use History / Comment(s): Pt has smoked marijuana in the past - last smoked in 1999. - Past Family History Mother Family Medical History: Coronary Artery Disease (CAD), Myocardial Infarction (FL) Additional Family Medical History / Comment(s): 7 FL and faulty heart valve. Pt does not know the age when mother had her FL's. Father History Unknown: Yes Additional Family Medical History / Comment(s): Does not know who father is. Brother(s) Family Medical History: Cancer, Congestive Heart Failure (CHF), Myocardial Infarction (FL) Additional Family Medical History / Comment(s): Parkinsons. Pt does not know at what age his brother had an FL. Patient's other brother has lung CA Patient has Family Medical History: No Reported History Additional Family Medical History / Comment(s): There is a strong family history for heart disease, hypertension, and diabetes. Medications and Allergies Home Medications Medication Instructions Recorded Confirmed Type Pantoprazole [Protonix] 40 mg PO DAILY 04/01/18 03/08/19 History Nitroglycerin Sl Tabs [Nitrostat] 0.4 mg SUBLINGUAL Q5M PRN 11/08/18 03/08/19 History Tamsulosin HCl [Flomax] 0.4 mg PO DAILY 11/08/18 03/08/19 History Apixaban [Eliquis] 5 mg PO BID 02/27/19 03/08/19 History Clopidogrel [Plavix] 75 mg PO DAILY 02/27/19 03/08/19 History Albuterol Sulfate [Ventolin HFA] 2 puff INHALATION RT-Q6H PRN 03/08/19 03/08/19 History Bumetanide [BUMEX] 2 mg PO DAILY 03/08/19 03/08/19 History Carvedilol [Coreg] 3.125 mg PO BID 03/08/19 03/08/19 History DULoxetine HCL [Cymbalta] 60 mg PO BID 03/08/19 03/08/19 History Gabapentin [Neurontin] 100 mg PO TID 03/08/19 03/08/19 History Insulin Glargine [Lantus] 30 units SQ HS 03/08/19 03/08/19 History Lisinopril [Zestril] 5 mg PO DAILY 03/08/19 03/08/19 History Methocarbamol [Robaxin] 500 mg PO QID 03/08/19 03/08/19 History Primidone [Mysoline] 100 mg PO BID 03/08/19 03/08/19 History Rosuvastatin [Crestor] 10 mg PO DAILY 03/08/19 03/08/19 History Spironolactone [Aldactone] 25 mg PO DAILY 03/08/19 03/08/19 History Allergies Allergy/AdvReac Type Severity Reaction Status Date / Time erythromycin base Allergy Severe Rash/Hives Verified 03/08/19 08:03 [Erythromycin Base] cephalexin monohydrate Allergy Unknown Rash/Hives Verified 03/08/19 08:03 [From Keflex] codeine Allergy Unknown Unknown Verified 03/08/19 08:03 meclizine Allergy Unknown Unknown Verified 03/08/19 08:03 Penicillins Allergy Unknown Rash/Hives Verified 03/08/19 08:03 shellfish derived Allergy Unknown Anaphylaxis Verified 03/08/19 08:03 adhesive tape Allergy Rash/Hives Verified 03/08/19 08:03 Fish Containing Products Allergy Anaphylaxis Verified 03/08/19 08:03 [Fish] Iodinated Contrast Media Allergy Anaphylaxis Verified 03/08/19 08:03 silver Allergy Rash/Hives Verified 03/08/19 08:03 [From Tegaderm AG Mesh] naproxen AdvReac Unknown Compromises Verified 03/08/19 08:03 Kidney Function atorvastatin calcium AdvReac Myalgia Verified 03/08/19 08:03 [From Lipitor] hydrocodone [From [place]] AdvReac Rapid Verified 03/08/19 08:03 Heart Rate Physical Exam Vitals: Vital Signs Temp Pulse Pulse Resp BP BP Pulse Ox 03/08/19 08:50 97.8 F 107 H 18 112/61 97 03/08/19 07:47 98.1 F 03/08/19 07:00 111 H 20 107/70 97 03/08/19 06:00 120 H 20 114/76 97 03/08/19 05:00 115 H 20 121/71 97 03/08/19 03:23 111 H 98 03/08/19 02:44 97.9 F 113 H 18 97/65 98 Intake and Output 03/07/19 03/08/19 03/08/19 22:59 06:59 14:59 Other: Weight 85.729 kg PHYSICAL EXAMINATION: GENERAL:43-year-old gentleman in no acute distress at the time of my examination HEENT: Head is atraumatic, normocephalic. Pupils equal, round. Sclera anicteric. Conjunctiva are clear. Mucous membranes of the mouth are moist. Neck is supple. There is no elevated jugular venous pressure.no carotid bruit is heard. HEART EXAMINATION: heart S1 and S2 systolic murmur. CHEST EXAMINATION:[ Lungs are clear to auscultation and precussion. No chest wall tenderness is noted on palpation or with deep breathing.] ABDOMEN: [ Soft, nontender. Bowel sounds are heard. No organomegaly noted]. EXTREMITIES:[ 2+ peripheral pulses with no evidence of peripheral edema and no calf tenderness noted]. NEUROLOGIC [patient is awake, alert and oriented 3.] . Results 03/08/19 05:42 03/08/19 05:42 Cardiac Enzymes 03/08/19 03/08/19 Range/Units 05:42 05:42 AST 27 (17-59) U/L CK-MB (CK-2) 1.6 (0.0-2.4) ng/mL CBC 03/08/19 Range/Units 05:42 WBC 8.8 (3.8-10.6) k/uL RBC 4.27 L (4.30-5.90) m/uL Hgb 11.5 L (13.0-17.5) gm/dL Hct 36.6 L (39.0-53.0) % Plt Count 245 (150-450) k/uL Comprehensive Metabolic Panel 03/08/19 Range/Units 05:42 Sodium 123 L (137-145) mmol/L Potassium 4.8 (3.5-5.1) mmol/L Chloride 87 L (98-107) mmol/L Carbon Dioxide 23 (22-30) mmol/L BUN 41 H (9-20) mg/dL Creatinine 0.82 (0.66-1.25) mg/dL Glucose 274 H (74-99) mg/dL Calcium 8.9 (8.4-10.2) mg/dL AST 27 (17-59) U/L ALT 35 (21-72) U/L Alkaline Phosphatase 230 H (38-126) U/L Total Protein 6.2 L (6.3-8.2) g/dL Albumin 3.5 (3.5-5.0) g/dL Current Medications Generic Name Dose Route Start Last Admin Trade Name Bashirq PRN Reason Stop Dose Admin Hydromorphone HCl 1 mg 03/08/19 06:41 03/08/19 10:50 Dilaudid IVP 1 mg Q3HR PRN Administration Severe Pain Morphine Sulfate 4 mg 03/08/19 06:41 Morphine Sulfate (Inj) IV Q4HR PRN Severe Pain Naloxone HCl 0.2 mg 03/08/19 06:41 Narcan IV Q2M PRN Opioid Reversal Intake and Output 03/07/19 03/08/19 03/08/19 22:59 06:59 14:59 Other: Weight 85.729 kg 03/08/19 05:42 03/08/19 05:42 EKG Interpretations (text) EKG shows a sensed V paced rhythm. Assessment and Plan Plan: assessment and plan #1 suicidal ideation and depression #2 known history of coronary artery disease with multiple PCI's #3 ischemic cardiomyopathy with prior AICD implantation #4 hypertension #5 hyperlipidemia #6 diabetes #7 prior CVA #8 obesity #9 noncompliance Plan From cardiology's perspective, we will recommend to continue this patient on his current medications. He may be transferred to the psychiatric unit, no active cardiac issues evident at this time. DNP note has been reviewed, I agree with a documented findings and plan of care. Patient was seen and examined. <Ray Kang - Last Filed: 03/09/19 13:31> History of Present Illness History of present illness: Patient interviewed and examined Discussed with Dr. shukla If there are any further episodes of chest discomfort, this patient is to be transferred to his primary senior [facility] developer in [place] for further management Continue medical treatment for now Patient came in with suicidal ideation and shold be transferred to the psychiatry floor Physical Exam Vitals: Vital Signs Temp Pulse Resp BP Pulse Ox 03/09/19 11:14 84 16 91/57 98 03/09/19 11:11 91 20 89/57 93 L 03/09/19 10:47 90 18 92/59 94 L 03/08/19 20:27 98.0 F 99 17 105/74 100 03/08/19 16:15 96 18 105/68 98 Intake and Output 03/08/19 03/09/19 03/09/19 22:59 06:59 14:59 Intake Total 800 Balance 800 Intake: Oral 800 Other: Voiding Method Urinal Incontinent # Voids 1 Results 03/09/19 07:55 03/09/19 07:55 Cardiac Enzymes 03/08/19 03/09/19 Range/Units 17:58 11:09 CK-MB (CK-2) 1.3 (0.0-2.4) ng/mL Troponin I 0.034 (0.000-0.034) ng/mL CBC 03/09/19 Range/Units 07:55 WBC 5.9 (3.8-10.6) k/uL RBC 3.95 L (4.30-5.90) m/uL Hgb 10.8 L (13.0-17.5) gm/dL Hct 34.4 L (39.0-53.0) % Plt Count 245 (150-450) k/uL Comprehensive Metabolic Panel 03/09/19 Range/Units 07:55 Sodium 128 L (137-145) mmol/L Potassium 4.3 (3.5-5.1) mmol/L Chloride 92 L (98-107) mmol/L Carbon Dioxide 26 (22-30) mmol/L BUN 36 H (9-20) mg/dL Creatinine 0.84 (0.66-1.25) mg/dL Glucose 102 H (74-99) mg/dL Calcium 9.0 (8.4-10.2) mg/dL Current Medications Generic Name Dose Route Start Last Admin Trade Name Freq PRN Reason Stop Dose Admin Acetaminophen 650 mg 03/09/19 12:47 Tylenol Tab PO Q4HR PRN Fever and/ or Pain Albuterol Sulfate 2.5 mg 03/08/19 12:27 Ventolin Nebulized INHALATION RT-Q6H PRN Wheezing Apixaban 5 mg 03/08/19 21:00 03/09/19 09:39 Eliquis PO 5 mg BID JAKE Administration Clopidogrel Bisulfate 75 mg 03/09/19 09:00 03/09/19 09:39 Plavix PO 75 mg DAILY JAKE Administration Duloxetine HCl 60 mg 03/08/19 21:00 03/09/19 09:39 Cymbalta PO 60 mg BID JAKE Administration Gabapentin 100 mg 03/08/19 16:00 03/09/19 09:40 Neurontin PO 100 mg TID JAKE Administration Sodium Chloride 1,000 mls @ 75 mls/hr 03/09/19 12:45 Saline 0.9% IV 03/10/19 02:04 .[id number] JAKE Insulin Aspart 0 unit 03/08/19 17:30 03/09/19 07:38 Novolog SQ Not Given ACHS [facility] Protocol Insulin Detemir 30 unit 03/08/19 21:00 03/08/19 21:31 Levemir SQ 30 unit HS JAKE Administration Metoprolol Tartrate 25 mg 03/08/19 12:45 03/09/19 09:39 Lopressor PO 25 mg BID JAKE Administration Naloxone HCl 0.2 mg 03/08/19 06:41 Narcan IV Q2M PRN Opioid Reversal Nitroglycerin 0.4 mg 03/08/19 12:27 03/09/19 11:09 Nitrostat SUBLINGUAL 0.4 mg Q5M PRN Administration Chest Pain Non-Formulary Medication 10 mg 03/09/19 09:00 03/09/19 09:40 Rosuvastatin PO Not Given DAILY JAKE Ondansetron HCl 4 mg 03/08/19 16:10 03/08/19 20:11 Zofran IVP 4 mg Q6HR PRN Administration Nausea And Vomiting Pantoprazole Sodium 40 mg 03/09/19 07:30 03/09/19 09:39 Protonix PO 40 mg [id number] JAKE Administration Primidone 100 mg 03/08/19 21:00 03/09/19 09:39 Mysoline PO 100 mg BID JAKE Administration Tamsulosin HCl 0.4 mg 03/09/19 09:00 03/09/19 09:40 Flomax PO 0.4 mg DAILY JAKE Administration Intake and Output 03/08/19 03/09/19 03/09/19 22:59 06:59 14:59 Intake Total 800 Balance 800 Intake: Oral 800 Other: Voiding Method Urinal Incontinent # Voids 1 03/09/19 07:55 03/09/19 07:55
[2019-03-08 11:59] LABS: Glucose,Whole Blood 287 mg/dL (75-99)
[2019-03-08] MEDS ORDERED: ALBUTEROL NEBULIZED 2.5 MG/3 ML INHALATION PRN (12:27)
[2019-03-08 13:14] LABS: Creatine Kinase MB 1.3 ng/mL (0.0-2.4)
[2019-03-08] MEDS: INSULIN ASPART (NovoLOG) 100 UNIT/ML VIAL SQ SCH ×3 (13:14→21:24)
--- NOTE | 2019-03-08 13:40 | P.HPIM ---
History of Present Illness 43-year-old male was admitted for CC ligation please refer to my dictation from my ER physician for further details. Patient has severe ischemic edema the patient has an AICD in place patient was recently admitted to this hospital s ubsequently was transferred to [facility] as per the patient although not verified patient apparently had a balloon pump and had a cardiopulmonary arrest. We will obtain medical records from my those hospitals. Patient is hyponatremic patient is on Bumex which will be held as well as ordered from which will be held as well patient is on lisinopril and Coreg these will be held because of hypotension inserted patient will be started on metoprolol because of the low blood pressure and tachycardia. Patient blood pressure normally stays slow part of which is because of his low ejection fraction. Patient will be continued on sliding scale insulin depending on his sliding scale requirements will decide and discharge insulin. Patient should shortness of breath was complaining of chest pain although patient has risk complaints every single time he gets admitted to the hospital and patient was evaluated by cardiology. Further management of chest pain as per cardiology. P sychiatrically will evaluate for's depression and suicidal ideation Review of Systems REVIEW OF SYSTEMS: CONSTITUTIONAL: No fever, no malaise, no fatigue. HEENT: No recent visual problems or hearing problems. Denied any sore throat. CARDIOVASCULAR: No orthopnea, PND, no palpitations, no syncope. PULMONARY: No shortness of breath, no cough, no hemoptysis. GASTROINTESTINAL: No diarrhea, no nausea, no vomiting, no abdominal pain. NEUROLOGICAL: No headaches, no weakness, no numbness. HEMATOLOGICAL: Denies any bleeding or petechiae. GENITOURINARY: Denies any burning micturition, frequency, or urgency. MUSCULOSKELETAL/RHEUMATOLOGICAL: Denies any joint pain, swelling, or any muscle pain. ENDOCRINE: Denies any polyuria or polydipsia. The rest of the 14-point review of systems is negative. Past Medical History Past Medical History: Asthma, Coronary Artery Disease (CAD), Chest Pain / Angina, Heart Failure, CVA/TIA, Diabetes Mellitus, Deep Vein Thrombosis (DVT), GERD/Reflux, Hyperlipidemia, Hypertension, Myocardial Infarction (IN), Osteoarthritis (OA), Pneumonia, Skin Disorder, Sleep Apnea/CPAP/BIPAP Additional Past Medical History / Comment(s): multiple vessel CAD, ischemic cardiomyopathy, diabetic neuropathy bilateral hands and feet, hypertensive cardiovascular disease, SHELIA with no device, chronic gastritis, degenerative disc disease, chronic back pain, depression with hx of suicide attempts, gastroparesis, psoriasis, UTI, migraines, TIA, PUD, hiatal hernia, L rotator cuff tear, bronchitis, pseudoaneurysm L groin post procedure. 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 Last Myocardial Infarction Date:: October 2017 History of Any Multi-Drug Resistant Organisms: MRSA Date of last positivie culture/infection: 11/05/17 (Culture done at [facility]) MDRO Source:: legs Past Surgical History: AICD, Appendectomy, Cholecystectomy, Heart Cathet erization With Stent, Hernia Repair Additional Past Surgical History / Comment(s): Pt has had multiple cardiac procedures- caths/stents/PTCA, last stent placed at [facility] -October2017, S[place]AN[place]H, R inguinal hernia repair, umbilical hernia repair, 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 Date of Last Stent Placement:: 10/2018 Type of Cardiac Device: Biventricular Pacemaker, AICD Device Placement Date:: 09/19/15 Past Psychological History: Anxiety, Depression, PTSD Additional Psychological History / Comment(s): Several suicide attempts with use of insulin. PTSD - in 2000 his 3mo old son in his arms (born 2 months premature). He has a walker at home if needed. He drives.pt has 2 adult stepchildren at home with him most of the time. Spouse manages his medications. Smoking Status: Never smoker Past Alcohol Use History: None Reported Additional Past Alcohol Use History / Comment(s): Past alcohol abuse - pt states he quit drinking over 8yrs ago. Past Drug Use History: None Reported Additional Drug Use History / Comment(s): Pt has smoked marijuana in the past - last smoked in 1999. - Past Family History Mother Family Medical History: Coronary Artery Disease (CAD), Myocardial Infarction (IN) Additional Family Medical History / Comment(s): 7 IN and faulty heart valve. Pt does not know the age when mother had her IN's. Father History Unknown: Yes Additional Family Medical History / Comment(s): Does not know who father is. Brother(s) Family Medical History: Cancer, Congestive Heart Failure (CHF), Myocardial Infarction (IN) Additional Family Medical History / Comment(s): Parkinsons. Pt does not know at what age his brother had an IN. Patient's other brother has lung CA Patient has Family Medical History: No Reported History Additional Family Medical History / Comment(s): There is a strong family history for heart disease, hypertension, and diabetes. Medications and Allergies Home Medications Medication Instructions Recorded Confirmed Type Pantoprazole [Protonix] 40 mg PO DAILY 04/01/18 03/08/19 History Nitroglycerin Sl Tabs [Nitrostat] 0.4 mg SUBLINGUAL Q5M PRN 11/08/18 03/08/19 History Tamsulosin HCl [Flomax] 0.4 mg PO DAILY 11/08/18 03/08/19 History Apixaban [Eliquis] 5 mg PO BID 02/27/19 03/08/19 History Clopidogrel [Plavix] 75 mg PO DAILY 02/27/19 03/08/19 History Albuterol Sulfate [Ventolin HFA] 2 puff INHALATION RT-Q6H PRN 03/08/19 03/08/19 History Bumetanide [BUMEX] 2 mg PO DAILY 03/08/19 03/08/19 History Carvedilol [Coreg] 3.125 mg PO BID 03/08/19 03/08/19 History DULoxetine HCL [Cymbalta] 60 mg PO BID 03/08/19 03/08/19 History Gabapentin [Neurontin] 100 mg PO TID 03/08/19 03/08/19 History Insulin Glargine [Lantus] 30 units SQ HS 03/08/19 03/08/19 History Lisinopril [Zestril] 5 mg PO DAILY 03/08/19 03/08/19 History Methocarbamol [Robaxin] 500 mg PO QID 03/08/19 03/08/19 History Primidone [Mysoline] 100 mg PO BID 03/08/19 03/08/19 History Rosuvastatin [Crestor] 10 mg PO DAILY 03/08/19 03/08/19 History Spironolactone [Aldactone] 25 mg PO DAILY 03/08/19 03/08/19 History Allergies Allergy/AdvReac Type Severity Reaction Status Date / Time erythromycin base Allergy Severe Rash/Hives Verified 03/08/19 08:03 [Erythromycin Base] cephalexin monohydrate Allergy Unknown Rash/Hives Verified 03/08/19 08:03 [From Keflex] codeine Allergy Unknown Unknown Verified 03/08/19 08:03 meclizine Allergy Unknown Unknown Verified 03/08/19 08:03 Penicillins Allergy Unknown Rash/Hives Verified 03/08/19 08:03 shellfish derived Allergy Unknown Anaphylaxis Verified 03/08/19 08:03 adhesive tape Allergy Rash/Hives Verified 03/08/19 08:03 Fish Containing Products Allergy Anaphylaxis Verified 03/08/19 08:03 [Fish] Iodinated Contrast Media Allergy Anaphylaxis Verified 03/08/19 08:03 silver Allergy Rash/Hives Verified 03/08/19 08:03 [From Tegaderm AG Mesh] naproxen AdvReac Unknown Compromises Verified 03/08/19 08:03 Kidney Function atorvastatin calcium AdvReac Myalgia Verified 03/08/19 08:03 [From Lipitor] hydrocodone [From [place]] AdvReac Rapid Verified 03/08/19 08:03 Heart Rate Physical Exam Vitals: Vital Signs Temp Pulse Pulse Resp BP BP Pulse Ox 03/08/19 08:50 97.8 F 107 H 18 112/61 97 03/08/19 07:47 98.1 F 03/08/19 07:00 111 H 20 107/70 97 03/08/19 06:00 120 H 20 114/76 97 03/08/19 05:00 115 H 20 121/71 97 03/08/19 03:23 111 H 98 03/08/19 02:44 97.9 F 113 H 18 97/65 98 Intake and Output 03/07/19 03/08/19 03/08/19 22:59 06:59 14:59 Other: Weight 85.729 kg PHYSICAL EXAMINATION: GENERAL: The patient is alert and oriented x3, not in any acute distress. Well developed, well nourished. HEENT: Pupils are round and equally reacting to light. EOMI. No scleral icterus. No conjunctival pallor. Normocephalic, atraumatic. No pharyngeal erythema. No thyromegaly. CARDIOVASCULAR: S1 and S2 present. No murmurs, rubs, or gallops. PULMONARY: Chest is clear to auscultation, no wheezing or crackles. ABDOMEN: Soft, nontender, nondistended, normoactive bowel sounds. No palpable organomegaly. MUSCULOSKELETAL: No joint swelling or deformity. EXTREMITIES: No cyanosis, clubbing, or pedal edema. NEUROLOGICAL: Gross neurological examination did not reveal any focal deficits. SKIN: No rashes. Results CBC & Chem 7: 03/08/19 05:42 03/08/19 05:42 Labs: Abnormal Lab Results - Last 24 Hours (Table) 03/08/19 03/08/19 03/08/19 Range/Units 03:42 04:36 05:42 RBC 4.27 L (4.30-5.90) m/uL Hgb 11.5 L (13.0-17.5) gm/dL Hct 36.6 L (39.0-53.0) % RDW 19.4 H (11.5-15.5) % Lymphocytes # 0.7 L (1.0-4.8) k/uL Sodium (137-145) mmol/L Chloride (98-107) mmol/L BUN (9-20) mg/dL Glucose (74-99) mg/dL POC Glucose (mg/dL) 267 H (75-99) mg/dL Alkaline Phosphatase (38-126) U/L Total Creatine Kinase (55-170) U/L Total Protein (6.3-8.2) g/dL Urine Protein Trace H (Negative) Urine Blood Small H (Negative) Ur Leukocyte Esterase Large H (Negative) Urine WBC >182 H (0-5) /hpf Urine WBC Clumps Many H (None) /hpf Urine Bacteria Many H (None) /hpf 03/08/19 03/08/19 03/08/19 Range/Units 05:42 05:42 11:57 RBC (4.30-5.90) m/uL Hgb (13.0-17.5) gm/dL Hct (39.0-53.0) % RDW (11.5-15.5) % Lymphocytes # (1.0-4.8) k/uL Sodium 123 L (137-145) mmol/L Chloride 87 L (98-107) mmol/L BUN 41 H (9-20) mg/dL Glucose 274 H (74-99) mg/dL POC Glucose (mg/dL) 287 H (75-99) mg/dL Alkaline Phosphatase 230 H (38-126) U/L Total Creatine Kinase 48 L (55-170) U/L Total Protein 6.2 L (6.3-8.2) g/dL Urine Protein (Negative) Urine Blood (Negative) Ur Leukocyte Esterase (Negative) Urine WBC (0-5) /hpf Urine WBC Clumps (None) /hpf Urine Bacteria (None) /hpf 03/08/19 Range/Units 12:13 RBC (4.30-5.90) m/uL Hgb (13.0-17.5) gm/dL Hct (39.0-53.0) % RDW (11.5-15.5) % Lymphocytes # (1.0-4.8) k/uL Sodium (137-145) mmol/L Chloride (98-107) mmol/L BUN (9-20) mg/dL Glucose (74-99) mg/dL POC Glucose (mg/dL) (75-99) mg/dL Alkaline Phosphatase (38-126) U/L Total Creatine Kinase 37 L (55-170) U/L Total Protein (6.3-8.2) g/dL Urine Protein (Negative) Urine Blood (Negative) Ur Leukocyte Esterase (Negative) Urine WBC (0-5) /hpf Urine WBC Clumps (None) /hpf Urine Bacteria (None) /hpf Thrombosis Risk Factor Assmnt - Choose All That Apply Any of the Below Risk Factors Present?: Yes Each Factor Represents 1 point: Age 41-60 years Other Risk Factors: No Other congenital or acquired thrombophilia - If yes, enter type in comment: No Thrombosis Risk Factor Assessment Total Risk Factor Score: 1 Thrombosis Risk Factor Assessment Level: Low Risk Assessment and Plan Plan: -Suicidal ideation: Patient will be evaluated by psychiatric further management as per second -Hyponatremia secondary to diuretic therapy which will be held E Will repeat basic metabolic profile again tomorrow. -Congestive heart failure chronic systolic dysfunction ejection fraction of around 20% patient is not in acute exacerbation patient is actually hypovolemic because of which I'm holding on diuretic therapy -Chest pain: Rule out acute current symptoms further management as per cardiology -Hypertension -Hyperlipidemia -Type 2 diabetes mellitus patient will be resumed on his home Lantus and continue with pre-meal insulin -Diabetic peripheral neuropathy continue gabapentin and Cymbalta -Depression -Atrial fibrillation presently rate controlled sinus rhythm with a patient is on Eliquis which will be continued -Severe coronary artery disease with multiple stents in the past -DVT in the past -Gastroesophageal reflux disease -Obesity and sleep apnea
[2019-03-08] MEDS: METOPROLOL TARTRATE 25 MG TAB PO SCH ×2 (14:10→21:20)
[2019-03-08] MEDS: GABAPENTIN 100 MG CAP PO SCH ×2 (14:10→21:24)
--- NOTE | 2019-03-08 14:45 | XR ---
EXAMINATION TYPE: XR chest 2V DATE OF EXAM: 03/08/2019 COMPARISON: 02/28/2019 HISTORY: Congestive heart failure. TECHNIQUE: Frontal and lateral views of the chest are obtained. FINDINGS: There is improved aeration of the right lung base. Cardiac stent is noted with multilead l eft-sided cardiac pacemaker. No sizable pneumothorax or pleural effusion. Osseous structures are inta ct. IMPRESSION: Near complete resolution of the previously seen right basilar airspace disease. Previous ly seen trace right pleural effusion has resolved.
[2019-03-08 16:23] LABS: Glucose,Whole Blood 222 mg/dL (75-99)
[2019-03-08 18:47] LABS: Creatine Kinase MB 1.3 ng/mL (0.0-2.4)
[2019-03-08] MEDS: ONDANSETRON 4 MG/2 ML VIAL IVP PRN (20:11)
[2019-03-08 21:04] LABS: Glucose,Whole Blood 246 mg/dL (75-99)
[2019-03-08] MEDS: DULoxetine HCL 60 MG CAPSULE.DR PO SCH (21:20)
[2019-03-08] MEDS: APIXABAN 5 MG TAB PO SCH (21:20)
[2019-03-08] MEDS: PRIMIDONE 50 MG TAB PO SCH (21:20)
[2019-03-08] MEDS: INSULIN DETEMIR (LEVEMIR) 100 UNIT/ML SYR SQ SCH (21:31)
[2019-03-08] MEDS ORDERED: HYDROcodone/APAP 5-325MG 1 EACH TAB PO PRN (22:16)
[2019-03-09 07:19] LABS: Glucose,Whole Blood 97 mg/dL (75-99)
[2019-03-09] MEDS: INSULIN ASPART (NovoLOG) 100 UNIT/ML VIAL SQ SCH ×4 (07:38→21:32)
[2019-03-09 08:24] LABS: Anisocytosis Slight; HCT 34.4 % (39.0-53.0); HGB 10.8 gm/dL (13.0-17.5); Hypochromasia Moderate; MCH 27.3 pg (25.0-35.0); MCHC 31.4 g/dL (31.0-37.0); MCV 87.1 fL (80.0-100.0); Mean Platelet Volume 6.8; Platelet Count 245 k/uL (150-450); RBC 3.95 m/uL (4.30-5.90); RDW 19.3 % (11.5-15.5); WBC 5.9 k/uL (3.8-10.6)
[2019-03-09 08:31] LABS: African American GFR (CKD) >90 (>60 ml/min/1.73 sqM); Anion Gap 10 mmol/L; Blood Urea Nitrogen 36 mg/dL (9-20); Carbon Dioxide 26 mmol/L (22-30); Chloride 92 mmol/L (98-107); Glucose 102 mg/dL (74-99); Potassium 4.3 mmol/L (3.5-5.1); Sodium 128 mmol/L (137-145)
[2019-03-09] MEDS: METOPROLOL TARTRATE 25 MG TAB PO SCH (09:39)
[2019-03-09] MEDS: PANTOPRAZOLE 40 MG TABLET PO SCH (09:39)
[2019-03-09] MEDS: CLOPIDOGREL 75 MG TAB PO SCH (09:39)
[2019-03-09] MEDS: APIXABAN 5 MG TAB PO SCH ×2 (09:39→21:12)
[2019-03-09] MEDS: DULoxetine HCL 60 MG CAPSULE.DR PO SCH ×2 (09:39→21:31)
[2019-03-09] MEDS: PRIMIDONE 50 MG TAB PO SCH ×2 (09:39→21:31)
[2019-03-09] MEDS: NON FORMULARY DRUG (Rosuvastatin 10 MG) PO SCH (09:40)
[2019-03-09] MEDS: TAMSULOSIN 0.4 MG CAP.ER.24H PO SCH (09:40)
[2019-03-09] MEDS: GABAPENTIN 100 MG CAP PO SCH ×3 (09:40→21:12)
[2019-03-09 10:52] LABS: Glucose,Whole Blood 102 mg/dL (75-99)
[2019-03-09] MEDS: NITROGLYCERIN SL TABS 0.4 MG TAB SUBLINGUAL PRN (11:09)
--- NOTE | 2019-03-09 11:47 | P.PN ---
Subjective This is a 43-year-old male past medical history significant for coronary artery disease s/p multi-vessel PCI, recent cardiac arrest, ischemic cardiomyopathy s/p AICD placement, chronic systolic heart failure, hypertension, dyslipidemia, myocardial infarction, depression, CVA and history of DVT and PE in the past. He follows with a compliance review officer at [facility]. He was seen and examined yesterday by Dr. Kang in transferred to the medical floor. This morning he was seen and examined laying flat sleeping quite comfortably in bed. We were called to come back to the room for complaints of acute chest pain. The patient states he is having extreme chest pressure in the left precordial region. There is no radiation down the arm, back, neck or jaw. He feels dizzy and fatigued. He denies shortness of breath or palpitations. EKG obtained reveals paced rhythm with no acute ST or T-wave abnormalities. Blood pressure low at 91/57 heart rate 60's. Lab is at the bedside to draw troponin. Most recent echocardiogram 11/2018 reveals severely impaired LV systolic function ejection fraction 20-25%, global hypokinesia, mild mitral regurgitation, moderate tricuspid regurgitation and moderate pulmonary hypertension with an RVSP of 51 mmHg. GENERAL: Well-appearing, well-nourished and in no acute distress. Pale. NECK: Supple without JVD or thyromegaly. LUNGS: Breath sounds clear to auscultation bilaterally. Respiration equal and unlabored. No wheezes, rales or rhonchi. HEART: Regular rate and rhythm with systolic ejection murmur at the left sternal border, no rubs or gallops. S1 and S2 heard. Distant heart sounds. EXTREMITIES: Normal range of motion, no edema. No clubbing or cyanosis. Peripheral pulses intact. ASSESSMENT Chest pain, atypical for angina. Depression and suicidal ideation Hypotension Recent pleural effusion, resolved almost completely on chest xray Ischemic cardiomuopathy s/p AICD Chronic systolic heart failure, currently euvolemic Dyslipidemia History of myocardial infarction REcent cardiac arrest PLAN Give 250 cc bolus. Transfer to telemetry unit for cardiac monitoring. Discussed with Dr. Kang in detail who saw the patient yesterday and recommended transfer to [facility] for ongoing cardiac care. Palliative care should be considered. Nurse Practitioner note has been reviewed, I agree with a documented findings and plan of care. Patient was seen and examined. Objective - Vital Signs Vital signs: Vital Signs Temp 98.0 F 03/08/19 20:27 Pulse 84 03/09/19 11:14 Resp 16 03/09/19 11:14 BP 91/57 03/09/19 11:14 Pulse Ox 98 03/09/19 11:14 Intake & Output 03/08/19 03/09/19 03/09/19 18:59 06:59 18:59 Intake Total 222 800 Output Total 400 Balance -178 800 Intake: Oral 222 800 Output: Urine 400 Other: # Voids 1 - Labs CBC & Chem 7: 03/09/19 07:55 03/09/19 07:55 Labs: Abnormal Lab Results - Last 24 Hours (Table) 03/08/19 03/08/19 03/08/19 Range/Units 11:57 12:13 16:21 RBC (4.30-5.90) m/uL Hgb (13.0-17.5) gm/dL Hct (39.0-53.0) % RDW (11.5-15.5) % Sodium (137-145) mmol/L Chloride (98-107) mmol/L BUN (9-20) mg/dL Glucose (74-99) mg/dL POC Glucose (mg/dL) 287 H 222 H (75-99) mg/dL Total Creatine Kinase 37 L (55-170) U/L 03/08/19 03/08/19 03/09/19 Range/Units 17:58 20:43 07:55 RBC 3.95 L (4.30-5.90) m/uL Hgb 10.8 L (13.0-17.5) gm/dL Hct 34.4 L (39.0-53.0) % RDW 19.3 H (11.5-15.5) % Sodium (137-145) mmol/L Chloride (98-107) mmol/L BUN (9-20) mg/dL Glucose (74-99) mg/dL POC Glucose (mg/dL) 246 H (75-99) mg/dL Total Creatine Kinase 34 L (55-170) U/L 03/09/19 03/09/19 Range/Units 07:55 10:50 RBC (4.30-5.90) m/uL Hgb (13.0-17.5) gm/dL Hct (39.0-53.0) % RDW (11.5-15.5) % Sodium 128 L (137-145) mmol/L Chloride 92 L (98-107) mmol/L BUN 36 H (9-20) mg/dL Glucose 102 H (74-99) mg/dL POC Glucose (mg/dL) 102 H (75-99) mg/dL Total Creatine Kinase (55-170) U/L
[2019-03-09 11:50] LABS: Glucose,Whole Blood 109 mg/dL (75-99)
[2019-03-09] MEDS ORDERED: SODIUM CHLORIDE 0.9% 500 ML 500 ML IV ONE (12:05)
[2019-03-09] MEDS ORDERED: SODIUM CHLORIDE 0.9% 1,000 ML IV SCH (12:45)
[2019-03-09] MEDS ORDERED: ACETAMINOPHEN TAB 325 MG TAB PO PRN (12:47)
--- NOTE | 2019-03-09 15:16 | P.PN ---
Subjective Progress Note Date: 03/09/19 Principal diagnosis: 43-year-old male was admitted for suicidal ideation. Please refer to my dictation from my ER physician for further details. Patient has severe ischemic cardiomyopathy and has an AICD in place. Patient was recently admitted to this hospital and was subsequently transferred to [facility] and per the patient although not verified, patient apparently had a balloon pump headache cardio pulmonary arrest. We will obtain medical records from [facility]. Patient is hyponatremic and patient was on Bumex which will be held and also lisinopril and Coreg will be held at this time because of hypotension. Patient will be started on metoprolol because of low blood pressure and tachycardia. Patient's blood pressure normally stays low in part of which is to to his low ejection fraction. Patient will be continued on a sliding scale insulin and depending on a sliding scale requirements will evaluate and discharge with possible insulin. Patient shows shortness of breath and was complaining of some chest pain although patient has similar complaints every single time he gets admitted to the hospital. Cardiology evaluated the patient and is following. Further management of chest pain as per cardiology. Psychiatry will evaluate for depression and suicidal ideation. 03/09/2019 Patient is sitting up at the site of the bed in no acute distress this morning. Patient is awaiting for the bed change as he just woke up and urinated himself in the bed. When asked if he had issues or problems getting up or using the urinal he stated "I was caught in a dream". Patient does have a sitter at the bedside for suicide precautions. Today joseph the of his son and patient states he is severely depressed. When speaking with the patient this morning patient denied any severe chest pain, palpitations, or shortness of breath. Patient denied any nausea or vomiting and states he hasn't been eating very well as he has no appetite. Patient is afebrile. On asking the patient if he was experiencing any suicidal thoughts he stated "I don't know, nothing matters anyway". Per nursing staff patient continues to request something for pain. Guarded prognosis. Objective - Vital Signs Vital signs: Vital Signs Temp 98.0 F 03/08/19 20:27 Pulse 84 03/09/19 11:14 Resp 16 03/09/19 11:14 BP 91/57 03/09/19 11:14 Pulse Ox 98 03/09/19 11:14 Intake & Output 03/08/19 03/09/19 03/09/19 18:59 06:59 18:59 Intake Total 222 800 410 Output Total 400 Balance -178 800 410 Intake: IV 150 Sodium Chloride 0.9% 1, 150 000 ml @ 75 mls/hr IV . [id number] JAKE Rx#:[id number] Oral 222 800 260 Output: Urine 400 Other: Voiding Method Urinal Incontinent # Voids 1 - Exam GENERAL: The patient is alert and oriented x3, not in any acute distress. Well developed, well nourished. Vital signs are stable from this morning. Blood pressure is 104/73, pulse is 100, respirations are 16, temp is 97.9F, oxygen saturation is 94% on room air. HEENT: Pupils are round and equally reacting to light. EOMI. No scleral icterus. No conjunctival pallor. Normocephalic, atraumatic. No pharyngeal erythema. No thyromegaly. CARDIOVASCULAR: S1 and S2 present. No murmurs, rubs, or gallops. PULMONARY: Chest is clear to auscultation, no wheezing or crackles. ABDOMEN: Soft, nontender, nondistended, normoactive bowel sounds. No palpable organomegaly. MUSCULOSKELETAL: No joint swelling or deformity. EXTREMITIES: No cyanosis, clubbing, or pedal edema. NEUROLOGICAL: Gross neurological examination did not reveal any focal deficits. SKIN: No rashes. - Labs CBC & Chem 7: 03/09/19 07:55 03/09/19 07:55 Labs: Abnormal Lab Results - Last 24 Hours (Table) 03/08/19 03/08/19 03/08/19 Range/Units 16:21 17:58 20:43 RBC (4.30-5.90) m/uL Hgb (13.0-17.5) gm/dL Hct (39.0-53.0) % RDW (11.5-15.5) % Sodium (137-145) mmol/L Chloride (98-107) mmol/L BUN (9-20) mg/dL Glucose (74-99) mg/dL POC Glucose (mg/dL) 222 H 246 H (75-99) mg/dL Total Creatine Kinase 34 L (55-170) U/L 10/03/09/19 03/09/19 Range/Units 07:55 07:55 10:50 RBC 3.95 L (4.30-5.90) m/uL Hgb 10.8 L (13.0-17.5) gm/dL Hct 34.4 L (39.0-53.0) % RDW 19.3 H (11.5-15.5) % Sodium 128 L (137-145) mmol/L Chloride 92 L (98-107) mmol/L BUN 36 H (9-20) mg/dL Glucose 102 H (74-99) mg/dL POC Glucose (mg/dL) 102 H (75-99) mg/dL Total Creatine Kinase (55-170) U/L 03/09/19 Range/Units 11:38 RBC (4.30-5.90) m/uL Hgb (13.0-17.5) gm/dL Hct (39.0-53.0) % RDW (11.5-15.5) % Sodium (137-145) mmol/L Chloride (98-107) mmol/L BUN (9-20) mg/dL Glucose (74-99) mg/dL POC Glucose (mg/dL) 109 H (75-99) mg/dL Total Creatine Kinase (55-170) U/L Assessment and Plan Assessment: -Suicidal ideation: Patient will be evaluated by psychiatric further management as per psychiatry. Spoke to psychiatry nurse today and was told referrals were made to [facility] inpatient [facility] facility due to his multiple complex medical issues and would not be a candidate for inpatient psych here. -Hyponatremia secondary to diuretic therapy which will be held. Will repeat basic metabolic profile again tomorrow. Sodium has slightly improved and is 128 today. Will repeat a.m. labs. -Congestive heart failure chronic systolic dysfunction ejection fraction of around 20% patient is not in acute exacerbation patient is actually hypovolemic because of which I'm holding on diuretic therapy -Chest pain: Rule out acute current symptoms further management as per cardiology. Patient developed severe chest pain and was pale this morning on the MedSurg unit and an A-team was called and patient is being transferred to stepdown or ICU for closer monitoring. -Hypertension -Hyperlipidemia -Type 2 diabetes mellitus patient will be resumed on his home Lantus and continue with pre-meal insulin -Diabetic peripheral neuropathy continue gabapentin and Cymbalta -Depression -Atrial fibrillation presently rate controlled sinus rhythm with a patient is on Eliquis which will be continued -Severe coronary artery disease with multiple stents in the past -DVT in the past -Gastroesophageal reflux disease -Obesity and sleep apnea Recommendations and discussion: Recommend to continue current medications, management, and symptomatic treatment. Patient was transferred to the ICU after an episode of severe chest pain as patient became very pale and was hypotensive. Cardiology is following. Patient is being given a 500 mL bolus at 50 mL an hour slowly due to his extensive cardiac history and will continue to monitor closely. Patient was recently just transferred from here to [facility] last week and per cardiology there is a possibility for another transfer to [facility] for higher level of care. Case management and social work are following closely. Will continue to monitor closely. Will repeat a.m. labs. Psychiatry is following and has made suggestions for possible transfer to [facility] facility as he has multiple complex medical issues and would not be a good candidate in the inpatient psychiatric unit here. Extremely guarded prognosis. Further recommendations to follow.
[2019-03-09 18:10] LABS: Glucose,Whole Blood 134 mg/dL (75-99)
[2019-03-09] MEDS: INSULIN DETEMIR (LEVEMIR) 100 UNIT/ML SYR SQ SCH (21:12)
[2019-03-09 21:18] LABS: Glucose,Whole Blood 225 mg/dL (75-99)
[2019-03-10] MEDS: METOPROLOL TARTRATE 25 MG TAB PO SCH ×3 (00:24→21:22)
[2019-03-10] MEDS: ONDANSETRON 4 MG/2 ML VIAL IVP PRN ×2 (00:32→15:00)
[2019-03-10 05:37] LABS: African American GFR (CKD) >90 (>60 ml/min/1.73 sqM); Anion Gap 11 mmol/L; Blood Urea Nitrogen 34 mg/dL (9-20); Calcium 8.7 mg/dL (8.4-10.2); Carbon Dioxide 24 mmol/L (22-30); Chloride 87 mmol/L (98-107); Glucose 231 mg/dL (74-99); Potassium 4.6 mmol/L (3.5-5.1); Sodium 122 mmol/L (137-145)
[2019-03-10] MEDS: PANTOPRAZOLE 40 MG TABLET PO SCH (06:49)
[2019-03-10] MEDS: INSULIN ASPART (NovoLOG) 100 UNIT/ML VIAL SQ SCH ×4 (06:49→21:27)
[2019-03-10 06:56] LABS: Glucose,Whole Blood 282 mg/dL (75-99)
--- NOTE | 2019-03-10 07:58 | P.PN ---
Subjective Patient is doing well. He is sitting comfortably and having breakfast which includes a turkey sausage and normal amongst other things. He is in good spirits chatting with his sitter No chest discomfort dizziness lightheadedness at this time Blood pressure 96 mmHg on low dose metoprolol but asymptomatic Afebrile 97.7F blood pressure 97/66. His mercury normal respirations looks very comfortable Breath sounds are clear no rhonchi no crackles Heart sounds S1 and S2 are normal He has a paced rhythm he is a biventricular ICD implanted no JVD Impression Patient apparently had severe chest discomfort and was transferred back to the ICU. 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 [facility] His troponin is normal once again Suggest Since the patient is having recurrent chest discomfort he should be transferred to his rotary cutter operator for further management, transfer to level I [facility] facility Continue statins continue low-dose beta blockers Patient is unable to tolerate carmella inhibitors or angiotensin receptor blockers on account of his blood pressure Objective - Vital Signs Vital signs: Vital Signs Temp 97.7 F 03/10/19 04:00 Pulse 98 03/10/19 04:00 Resp 16 03/10/19 04:00 BP 97/66 03/10/19 04:00 Pulse Ox 99 03/10/19 04:00 Intake & Output 03/09/19 03/10/19 03/10/19 18:59 06:59 18:59 Intake Total 410 1405 Output Total 325 Balance 410 1080 Weight 88 kg Intake: IV 150 525 Sodium Chloride 0.9% 1, 150 525 000 ml @ 75 mls/hr IV . [id number] [facility] Rx#:[id number] Oral 260 880 Output: Urine 325 Other: Voiding Method Urinal Urinal Incontinent Incontinent - Labs CBC & Chem 7: 03/09/19 07:55 03/10/19 04:41 Labs: Abnormal Lab Results - Last 24 Hours (Table) 03/09/19 03/09/19 03/09/19 Range/Units 07:55 07:55 10:50 RBC 3.95 L (4.30-5.90) m/uL Hgb 10.8 L (13.0-17.5) gm/dL Hct 34.4 L (39.0-53.0) % RDW 19.3 H (11.5-15.5) % Sodium 128 L (137-145) mmol/L Chloride 92 L (98-107) mmol/L BUN 36 H (9-20) mg/dL Glucose 102 H (74-99) mg/dL POC Glucose (mg/dL) 102 H (75-99) mg/dL 03/09/19 03/09/19 03/09/19 Range/Units 11:38 17:58 21:06 RBC (4.30-5.90) m/uL Hgb (13.0-17.5) gm/dL Hct (39.0-53.0) % RDW (11.5-15.5) % Sodium (137-145) mmol/L Chloride (98-107) mmol/L BUN (9-20) mg/dL Glucose (74-99) mg/dL POC Glucose (mg/dL) 109 H 134 H 225 H (75-99) mg/dL 03/10/19 03/10/19 Range/Units 04:41 06:44 RBC (4.30-5.90) m/uL Hgb (13.0-17.5) gm/dL Hct (39.0-53.0) % RDW (11.5-15.5) % Sodium 122 L (137-145) mmol/L Chloride 87 L (98-107) mmol/L BUN 34 H (9-20) mg/dL Glucose 231 H (74-99) mg/dL POC Glucose (mg/dL) 282 H (75-99) mg/dL
[2019-03-10] MEDS: APIXABAN 5 MG TAB PO SCH ×2 (08:10→21:22)
[2019-03-10] MEDS: TAMSULOSIN 0.4 MG CAP.ER.24H PO SCH (08:10)
[2019-03-10] MEDS: PRIMIDONE 50 MG TAB PO SCH ×2 (08:10→21:22)
[2019-03-10] MEDS: GABAPENTIN 100 MG CAP PO SCH ×3 (08:10→21:22)
[2019-03-10] MEDS: CLOPIDOGREL 75 MG TAB PO SCH (08:11)
[2019-03-10] MEDS ORDERED: FUROSEMIDE 10 MG/ML 2 ML VIAL IV ONE (08:27)
--- NOTE | 2019-03-10 08:48 | XR ---
EXAMINATION TYPE: XR chest 1V portable DATE OF EXAM: 03/10/2019 COMPARISON: 03/08/2019 HISTORY: Shortness of breath TECHNIQUE: Single frontal view of the chest is obtained. FINDINGS: Right basilar opacity is patchy. Cardiomediastinal silhouette is enlarged with prior coron andrei artery stent is noted. Multilead left-sided cardiac pacemaker. No pleural effusion or pneumothora x. Osseous structures are grossly intact. IMPRESSION: Right basilar patchy opacity suspicious for unifocal pneumonia. Cardiomediastinal silhou ette is larger than on the prior of 03/08/2019, which and likely relative due to the portable techniq ue however echocardiogram could be considered to assess function and presence of possible pericardial effusion.
[2019-03-10 12:01] LABS: Glucose,Whole Blood 183 mg/dL (75-99)
[2019-03-10] MEDS: traMADol 50 MG TAB PO PRN (13:27)
[2019-03-10 13:32] LABS: Glucose,Whole Blood 248 mg/dL (75-99)
[2019-03-10] MEDS ORDERED: FUROSEMIDE 10 MG/ML 2 ML VIAL IV STA (13:57)
--- NOTE | 2019-03-10 14:05 | P.PN ---
Subjective 43-year-old male was admitted for suicidal ideation. Please refer to my dictation from my ER physician for further details. Patient has severe ischemic cardiomyopathy and has an AICD in place. Patient was recently admitted to this hospital and was subsequently transferred to [facility] and per the patient although not verified, patient apparently had a balloon pump headache cardio pulmonary arrest. We will obtain medical records from [facility]. Patient is hyponatremic and patient was on Bumex which will be held and also lisinopril and Coreg will be held at this time because of hypotension. Patient will be started on metoprolol because of low blood pressure and tachycardia. Patient's blood pressure normally stays low in part of which is to to his low ejection fraction. Patient will be continued on a sli ding scale insulin and depending on a sliding scale requirements will evaluate and discharge with possible insulin. Patient shows shortness of breath and was complaining of some chest pain although patient has similar complaints every single time he gets admitted to the hospital. Cardiology evaluated the patient and is following. Further management of chest pain as per cardiology. Psychiatry will evaluate for depression and suicidal ideation. 03/09/2019 Patient is sitting up at the site of the bed in no acute distress this morning. Patient is awaiting for the bed change as he just woke up and urinated himself in the bed. When asked if he had issues or problems getting up or using the urinal he stated "I was caught in a dream". Patient does have a sitter at the bedside for suicide precautions. Today joseph the of his son and patient states he is severely depressed. When speaking with the patient this morning patient denied any severe chest pain, palpitations, or shortness of breath. Patient denied any nausea or vomiting and states he hasn't been eating very well as he has no appetite. Patient is afebrile. On asking the patient if he was experiencing any suicidal thoughts he stated "I don't know, nothing matters anyway". Per nursing staff patient continues to request something for pain. 03/10/2019 Patient hyponatremia has worsened patient initially had hypovolemic hyponatremia now appears to have hypervolemic hyponatremia oxygen saturation subchondral down because of which IV fluids were discontinued and patient will be given a dose of Lasix his blood pressure can tolerate will give another dose of Lasix today the basic metabolic profile tomorrow patient probably need to be on following medications for heart failure 40 mg twice a day of Lasix oral, metoprolol 25 twice a day in place of Coreg and probably ROWAN inhibitor can be started slowly as an outpatient. Patient is awaiting disposition to [facility] psych floor. Constitutional: Denied any fatigue denied any fever. Cardio vascular: Patient's chest pain is better Gastrointestinal denied any nausea vomiting Pulmonary: Denied any shortness of breath cough Neurologic denied any new focal deficits All inpatient medications were reviewed and appropriate changes in these medications as dictated in the interval history and assessment and plan. Objective - Vital Signs Vital signs: Vital Signs Temp 97.7 F 03/10/19 12:00 Pulse 84 03/10/19 12:00 Resp 22 03/10/19 12:00 BP 104/68 03/10/19 12:00 Pulse Ox 99 03/10/19 10:00 Intake & Output 03/09/19 03/10/19 03/10/19 18:59 06:59 18:59 Intake Total 410 1405 Output Total 325 600 Balance 410 1080 -600 Weight 88 kg Intake: IV 150 525 Sodium Chloride 0.9% 1, 150 525 000 ml @ 75 mls/hr IV . [id number] [facility] Rx#:[id number] Oral 260 880 Output: Urine 325 600 Other: Voiding Method Urinal Urinal Urinal Incontinent Incontinent - Exam PHYSICAL EXAMINATION: GENERAL: The patient is alert and oriented x3, not in any acute distress. Well developed, well nourished. HEENT: Pupils are round and equally reacting to light. EOMI. No scleral icterus. No conjunctival pallor. Normocephalic, atraumatic. No pharyngeal erythema. No thyromegaly. CARDIOVASCULAR: S1 and S2 present. No murmurs, rubs, or gallops. PULMONARY: Chest is clear to auscultation, no wheezing or crackles. ABDOMEN: Soft, nontender, nondistended, normoactive bowel sounds. No palpable organomegaly. MUSCULOSKELETAL: No joint swelling or deformity. EXTREMITIES: No cyanosis, clubbing, or pedal edema. NEUROLOGICAL: Gross neurological examination did not reveal any focal deficits. SKIN: No rashes. - Labs CBC & Chem 7: 03/09/19 07:55 03/10/19 04:41 Labs: Abnormal Lab Results - Last 24 Hours (Table) 03/09/19 03/09/19 03/10/19 Range/Units 17:58 21:06 04:41 Sodium 122 L (137-145) mmol/L Chloride 87 L (98-107) mmol/L BUN 34 H (9-20) mg/dL Glucose 231 H (74-99) mg/dL POC Glucose (mg/dL) 134 H 225 H (75-99) mg/dL 03/10/19 03/10/19 03/10/19 Range/Units 06:44 11:50 13:21 Sodium (137-145) mmol/L Chloride (98-107) mmol/L BUN (9-20) mg/dL Glucose (74-99) mg/dL POC Glucose (mg/dL) 282 H 183 H 248 H (75-99) mg/dL Assessment and Plan Plan: -Suicidal ideation: Patient will need med psych floor -Hyponatremia initial hypovolemic now hypervolemic hyponatremia patient will be started on Lasix. -Congestive heart failure chronic systolic dysfunction ejection fraction of around 20% patient is not in acute exacerbation -Chest pain: No further recommendations from cardiology perspective patient with multiple stents in the past patient is probably not a candidate for cardiac catheterization again. -Hypertension -Hyperlipidemia -Type 2 diabetes mellitus patient will be resumed on his home Lantus and continue with pre-meal insulin -Diabetic peripheral neuropathy continue gabapentin and Cymbalta -Depression -Atrial fibrillation presently rate controlled sinus rhythm with a patient is on Eliquis which will be continued -Severe coronary artery disease with multiple stents in the past -DVT in the past -Gastroesophageal reflux disease -Obesity and sleep apnea
[2019-03-10] MEDS: NON FORMULARY DRUG (Rosuvastatin 10 MG) PO SCH (14:36)
--- NOTE | 2019-03-10 14:51 | P.CN ---
Psychiatric Consult - . Consult date: 03/10/19 Consult:: 03/10/19 14:42 IDENTIFYING DATA: This patient is a 43-year-old male who is currently however is and lives with his 's mother and house has 2 kids which are in foster care. HISTORY OF PRESENT ILLNESS: The patient was brought into the ER with complaints of suicidal ideations with a plan to inject himself with insulin and increase in his depression. Patient has a chronic and severe history of cardiac events and multiple codes being called on him. Patient has recurrent chest pain and was admitted to medicine for evaluation and is now in the ICU. Patient was evaluated today for depression by psychiatry. Patient complains of ongoing depression becoming more severe and claims that it is the 18th anniversary of his son's . He states that he is hearing voices at times and feels that he needs to "join him". Patient had thoughts of wanting to end his life by injecting himself with insulin however came in to the hospital instead. Patient spoke about multiple stresses in his life including his son's , his marriage not doing so well in him going through separation, and his declining health but she is scared about. Patient states that he has some anxiety and sleeps well. Patient is suicidal at this time however has no plan to end his life.. At this time patient denies any homical ideations, intent or plan. Patient denies any visual hallucinations and denies any paranoia or delusions. PAST PSYCHIATRIC HISTORY: Patient has history of depression with multiple hospitalizations in psychiatric units. Patient claimed to be previously on Cymbalta 60 mg twice a day. He stated that he was following up with [facility] however had his case close recently. Patient admits to multiple suicide attempts by injecting himself with insulin. PAST MEDICAL HISTORY: CAD with multiple stents, angina, heart failure, diabetes mellitus, CVA, DVT, GERD, hypertension, SHELIA, asthma. ALLERGIES: as per EMR. CHEMICAL DEPENDENCY HISTORY: Denies. FAMILY PSYCHIATRIC/SUBSTANCE USE HISTORY: denies SOCIAL HISTORY: States that he was born in [place] and moved to [place]. He claims to have an 11th grade education. 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 The patient claims that he is currently however going through separation lives with his 's mother and has 2 kids which were taken away and in foster care. MENTAL STATUS EXAM: General Appearance: Patient appears to be older than stated age is alert, attempts to cooperate however appears to be anxious and depressed. Patient has poor hygiene and poor grooming. Behavior: Patient is calmly lying in bed without any agitated behavior. Speech: Patient's speech is fluent and nonpressured. Mood/Affect: Patient reports their mood is "depressed", affect is congruent Suicidality/Homicidality: Admits to suicidal ideations with no specific plan Perceptions: Admits to auditory hallucinations of his son calling him. Though content/process: There is no evidence of any delusional thought content and thought process is linear and goal-directed. Process of content Memory and concentration: AOX3, grossly intact for the purposes of this session. Can spell "WORLD" backwards Judgment and insight: Poor IMPRESSIONS: Major depressive disorder, recurrent, moderate-severe Anxiety disorder unspecified PLAN: -Would recommend the following medication changes/additions: Would hold off on starting any medications and no patient is medically cleared. -Continue 1:1 sitter for safety -Cannot leave AMA at this time. Patient will need a petition and certification if attempting to leave AMA. -Psychiatry will sign off at this point -At this time patient does meet criteria for medical-psychiatric admission and social work to continue with transfer to a medical psychiatric unit.
[2019-03-10] MEDS: DULoxetine HCL 60 MG CAPSULE.DR PO SCH ×2 (14:56→21:22)
[2019-03-10 15:07] LABS: Glucose,Whole Blood 280 mg/dL (75-99)
[2019-03-10 17:37] LABS: Glucose,Whole Blood 208 mg/dL (75-99)
[2019-03-10 18:20] LABS: Glucose,Whole Blood 213 mg/dL (75-99)
[2019-03-10 21:29] LABS: Glucose,Whole Blood 268 mg/dL (75-99)
[2019-03-10] MEDS: INSULIN DETEMIR (LEVEMIR) 100 UNIT/ML SYR SQ SCH (21:29)
[2019-03-10 23:55] LABS: Glucose,Whole Blood 231 mg/dL (75-99)
--- NOTE | 2019-03-11 00:45 | CT ---
EXAMINATION TYPE: CT brain wo con DATE OF EXAM: 03/11/2019 COMPARISON: 02/24/2019 HISTORY: facial weakness CT DLP: 1106.4 mGycm. Automated Exposure Control for Dose Reduction was Utilized. TECHNIQUE: CT scan of the head is performed without contrast. FINDINGS: Ventricles have normal size. There is cerebral atrophy. There is no mass effect nor midline shift. There is no sign of intracranial hemorrhage. Calvarium is intact. IMPRESSION: There is cerebral cortical atrophy in this relatively young patient. No acute intracranial abnormalit y.
[2019-03-11] MEDS ORDERED: HALOPERIDOL LACTATE 5 MG/ML 1 ML VIAL IVP STA ×2 (01:46→02:05)
[2019-03-11] MEDS: INSULIN ASPART (NovoLOG) 100 UNIT/ML VIAL SQ SCH ×4 (08:19→20:53)
[2019-03-11] MEDS: PANTOPRAZOLE 40 MG TABLET PO SCH (08:20)
[2019-03-11 08:28] LABS: Glucose,Whole Blood 187 mg/dL (75-99)
[2019-03-11 09:47] LABS: Anisocytosis Slight; Basophils # (A) 0.1 k/uL (0-0.2); Basophils % (A) 1 %; Eosinophils # (A) 0.1 k/uL (0-0.7); Eosinophils % (A) 1 %; HCT 31.5 % (39.0-53.0); HGB 10.2 gm/dL (13.0-17.5); Hypochromasia Moderate; Lymphocytes % (A) 18 %; MCH 27.9 pg (25.0-35.0); MCHC 32.5 g/dL (31.0-37.0); Mean Platelet Volume 6.5; Monocytes # (A) 0.3 k/uL (0-1.0); Monocytes % (A) 6 %; Neutrophils # (A) 3.8 k/uL (1.3-7.7); Neutrophils % (A) 70 %; Platelet Count 240 k/uL (150-450); RBC 3.66 m/uL (4.30-5.90); RDW 18.2 % (11.5-15.5); WBC 5.4 k/uL (3.8-10.6)
[2019-03-11] MEDS: GABAPENTIN 100 MG CAP PO SCH ×3 (09:47→20:53)
[2019-03-11] MEDS: CLOPIDOGREL 75 MG TAB PO SCH (09:47)
[2019-03-11] MEDS: DULoxetine HCL 60 MG CAPSULE.DR PO SCH ×2 (09:47→20:53)
[2019-03-11] MEDS: APIXABAN 5 MG TAB PO SCH ×2 (09:47→20:51)
[2019-03-11] MEDS: METOPROLOL TARTRATE 25 MG TAB PO SCH ×2 (09:48→20:51)
[2019-03-11] MEDS: PRIMIDONE 50 MG TAB PO SCH ×2 (09:48→20:53)
[2019-03-11] MEDS: TAMSULOSIN 0.4 MG CAP.ER.24H PO SCH (09:48)
[2019-03-11 10:04] LABS: African American GFR (CKD) >90 (>60 ml/min/1.73 sqM); Anion Gap 9 mmol/L; Blood Urea Nitrogen 36 mg/dL (9-20); Calcium 8.3 mg/dL (8.4-10.2); Carbon Dioxide 21 mmol/L (22-30); Chloride 93 mmol/L (98-107); Glucose 203 mg/dL (74-99); Potassium 4.5 mmol/L (3.5-5.1); Sodium 123 mmol/L (137-145)
[2019-03-11 12:11] LABS: Glucose,Whole Blood 210 mg/dL (75-99)
--- NOTE | 2019-03-11 13:06 | P.PN ---
Subjective Progress Note Date: 03/11/19 Principal diagnosis: 43-year-old male was admitted for suicidal ideation. Please refer to my dictation from my ER physician for further details. Patient has severe ischemic cardiomyopathy and has an AICD in place. Patient was recently admitted to this hospital and was subsequently transferred to [facility] and per the patient although not verified, patient apparently had a balloon pump headache cardio pulmonary arrest. We will obtain medical records from [facility]. Patient is hyponatremic and patient was on Bumex which will be held and also lisinopril and Coreg will be held at this time because of hypotension. Patient will be started on metoprolol because of low blood pressure and tachycardia. Patient's blood pressure normally stays low in part of which is to to his low ejection fraction. Patient will be continued on a sliding scale insulin and depending on a sliding scale requirements will evaluate and discharge with possible insulin. Patient shows shortness of breath and was complaining of some chest pain although patient has similar complaints every single time he gets admitted to the hospital. Cardiology evaluated the patient and is following. Further management of chest pain as per cardiology. Psychiatry will evaluate for depression and suicidal ideation. 03/09/2019 Patient is sitting up at the site of the bed in no acute distress this morning. Patient is awaiting for the bed change as he just woke up and urinated himself in the bed. When asked if he had issues or problems getting up or using the urinal he stated "I was caught in a dream". Patient does have a sitter at the bedside for suicide precautions. Today joseph the of his son and patient states he is severely depressed. When speaking with the patient this morning patient denied any severe chest pain, palpitations, or shortness of breath. Patient denied any nausea or vomiting and states he hasn't been eating very well as he has no appetite. Patient is afebrile. On asking the patient if he was experiencing any suicidal thoughts he stated "I don't know, nothing matters anyway". Per nursing staff patient continues to request something for pain. Guarded prognosis. 03/10/2019 Patient hyponatremia has worsened patient initially had hypovolemic hyponatremia now appears to have hypervolemic hyponatremia oxygen saturation subchondral down because of which IV fluids were discontinued and patient will be given a dose of Lasix his blood pressure can tolerate will give another dose of Lasix today the basic metabolic profile tomorrow patient probably need to be on following medications for heart failure 40 mg twice a day of Lasix oral, metoprolol 25 twice a day in place of Coreg and probably ROWAN inhibitor can be started slowly as an outpatient. Patient is awaiting disposition to [facility] psych floor. Constitutional: Denied any fatigue denied any fever. Cardio vascular: Patient's chest pain is better Gastrointestinal denied any nausea vomiting Pulmonary: Denied any shortness of breath cough Neurologic denied any new focal deficits All inpatient medications were reviewed and appropriate changes in these medications as dictated in the interval history and assessment and plan. 03/11/2019 Patient is sitting up in bed in no acute distress in the ICU as an overflow for close monitoring. Family is at the bedside. Patient continues to have a sitter at the bedside for suicidal ideation. Today patient states he feels much better mentally but continues to have chest pain that is pressured and sharp in nature. Patient states that he also is continuing to have headache with right-sided facial numbness and right upper and lower extremity weakness and feels that he needs to see a neurologist. Neurologist was consulted. Patient sodium today is 123 and is being closely monitored. Patient will be started on a low-dose of IV Lasix 20 mg daily and will continue to monitor vital signs and labs closely. Patient denies any shortness of breath or palpitations at this time. Patient denies any nausea or vomiting and is tolerating diet. Per nursing staff patient has been eating all of his meals. REVIEW OF SYSTEMS: ENT: No diminished vision or hearing. CARDIOVASCULAR: Mentioned earlier. RESPIRATORY: As mentioned earlier. GI: No nausea, vomiting or diarrhea. : No dysuria or retention. NERVOUS SYSTEM: Reports numbness and weakness of the right side of the face al pranav with upper and lower extremities of the right side. ALLERGY/IMMUNOLOGY: No asthma or hay fever. MUSCULOSKELETAL: As mentioned earlier. HEMATOLOGY/ONCOLOGY: No history of anemia. ENDOCRINE: Reports diabetes CONSTITUTIONAL: As mentioned earlier. PSYCHIATRY: Mentioned earlier. Active Medications Acetaminophen (Tylenol Tab) 650 mg PO Q4HR PRN PRN Reason: Fever and/ or Pain Albuterol Sulfate (Ventolin Nebulized) 2.5 mg INHALATION RT-Q6H PRN PRN Reason: Wheezing Apixaban (Eliquis) 5 mg PO BID JAKE Last Admin: 03/11/19 09:47 Dose: 5 mg Documented by: Clopidogrel Bisulfate (Plavix) 75 mg PO DAILY [facility] Last Admin: 03/11/19 09:47 Dose: 75 mg Documented by: Duloxetine HCl (Cymbalta) 60 mg PO BID [facility] Last Admin: 03/11/19 09:47 Dose: 60 mg Documented by: Furosemide (Lasix) 20 mg IV DAILY [facility] Gabapentin (Neurontin) 100 mg PO TID [facility] Last Admin: 03/11/19 09:47 Dose: 100 mg Documented by: Insulin Aspart (Novolog) 0 unit SQ [facility]; Protocol Last Admin: 03/11/19 08:19 Dose: 2 unit Documented by: Insulin Detemir (Levemir) 30 unit SQ [facility] Last Admin: 03/10/19 21:29 Dose: 30 unit Documented by: Metoprolol Tartrate (Lopressor) 25 mg PO BID [facility] Last Admin: 03/11/19 09:48 Dose: 25 mg Documented by: Naloxone HCl (Narcan) 0.2 mg IV Q2M PRN PRN Reason: Opioid Reversal Nitroglycerin (Nitrostat) 0.4 mg SUBLINGUAL Q5M PRN PRN Reason: Chest Pain Last Admin: 03/09/19 11:09 Dose: 0.4 mg Documented by: Non-Formulary Medication (Rosuvastatin) 10 mg PO DAILY [facility] Last Admin: 03/10/19 14:36 Dose: Not Given Documented by: Ondansetron HCl (Zofran) 4 mg IVP Q6HR PRN PRN Reason: Nausea And Vomiting Last Admin: 03/10/19 15:00 Dose: 4 mg Documented by: Pantoprazole Sodium (Protonix) 40 mg PO AC-BRKFST [facility] Last Admin: 03/11/19 08:20 Dose: 40 mg Documented by: Primidone (Mysoline) 100 mg PO BID [facility] Last Admin: 03/11/19 09:48 Dose: 100 mg Documented by: Tamsulosin HCl (Flomax) 0.4 mg PO DAILY [facility] Last Admin: 03/11/19 09:48 Dose: 0.4 mg Documented by: Tramadol HCl (Ultram) 50 mg PO QID PRN PRN Reason: Pain Last Admin: 03/10/19 13:27 Dose: 50 mg Documented by: Objective - Vital Signs Vital signs: Vital Signs Temp 97.9 F 03/11/19 08:00 Pulse 87 03/11/19 08:00 Resp 20 03/11/19 08:00 BP 152/76 03/11/19 08:00 Pulse Ox 100 03/11/19 08:00 Intake & Output 03/10/19 03/11/19 03/11/19 18:59 06:59 18:59 Output Total 600 400 Balance -600 -400 Weight 106 kg Output: Urine 600 400 Other: Voiding Method Urinal Urinal - Exam GENERAL: The patient is alert and oriented x3, not in any acute distress. Well developed, well nourished. Vital signs are stable. Blood pressure is 152/76, pulse is 87, respirations are 20, temp is 97.9F, oxygen saturation is 100% on room air. HEENT: Pupils are round and equally reacting to light. EOMI. No scleral icterus. No conjunctival pallor. Normocephalic, atraumatic. No pharyngeal erythema. No thyromegaly. CARDIOVASCULAR: S1 and S2 present. No murmurs, rubs, or gallops. PULMONARY: Chest is clear to auscultation, no wheezing or crackles. ABDOMEN: Soft, nontender, nondistended, normoactive bowel sounds. No palpable organomegaly. MUSCULOSKELETAL: No joint swelling or deformity. EXTREMITIES: No cyanosis, clubbing, or pedal edema. NEUROLOGICAL: Gross neurological examination did not reveal any focal deficits. SKIN: No rashes. - Labs CBC & Chem 7: 03/11/19 09:31 03/11/19 09:31 Labs: Abnormal Lab Results - Last 24 Hours (Table) 03/10/19 03/10/19 03/10/19 Range/Units 13:21 14:55 17:25 RBC (4.30-5.90) m/uL Hgb (13.0-17.5) gm/dL Hct (39.0-53.0) % RDW (11.5-15.5) % Sodium (137-145) mmol/L Chloride (98-107) mmol/L Carbon Dioxide (22-30) mmol/L BUN (9-20) mg/dL Glucose (74-99) mg/dL POC Glucose (mg/dL) 248 H 280 H 208 H (75-99) mg/dL Calcium (8.4-10.2) mg/dL 03/10/19 03/10/19 03/10/19 Range/Units 18:08 21:18 23:44 RBC (4.30-5.90) m/uL Hgb (13.0-17.5) gm/dL Hct (39.0-53.0) % RDW (11.5-15.5) % Sodium (137-145) mmol/L Chloride (98-107) mmol/L Carbon Dioxide (22-30) mmol/L BUN (9-20) mg/dL Glucose (74-99) mg/dL POC Glucose (mg/dL) 213 H 268 H 231 H (75-99) mg/dL Calcium (8.4-10.2) mg/dL 03/11/19 03/11/19 03/11/19 Range/Units 08:16 09:31 09:31 RBC 3.66 L (4.30-5.90) m/uL Hgb 10.2 L (13.0-17.5) gm/dL Hct 31.5 L (39.0-53.0) % RDW 18.2 H (11.5-15.5) % Sodium 123 L (137-145) mmol/L Chloride 93 L (98-107) mmol/L Carbon Dioxide 21 L (22-30) mmol/L BUN 36 H (9-20) mg/dL Glucose 203 H (74-99) mg/dL POC Glucose (mg/dL) 187 H (75-99) mg/dL Calcium 8.3 L (8.4-10.2) mg/dL 03/11/19 Range/Units 12:00 RBC (4.30-5.90) m/uL Hgb (13.0-17.5) gm/dL Hct (39.0-53.0) % RDW (11.5-15.5) % Sodium (137-145) mmol/L Chloride (98-107) mmol/L Carbon Dioxide (22-30) mmol/L BUN (9-20) mg/dL Glucose (74-99) mg/dL POC Glucose (mg/dL) 210 H (75-99) mg/dL Calcium (8.4-10.2) mg/dL Assessment and Plan Assessment: -Suicidal ideation: Patient will need med psych floor. Psychiatry is following. Case management and social work are looking for [facility] facilities for placem ent once patient is stabilized. -Hyponatremia initial hypovolemic now hypervolemic hyponatremia patient will be started on Lasix. -Congestive heart failure chronic systolic dysfunction ejection fraction of around 20% patient is not in acute exacerbation -Chest pain: No further recommendations from cardiology perspective patient with multiple stents in the past patient is probably not a candidate for cardiac catheterization again. -Hypertension -Hyperlipidemia -Type 2 diabetes mellitus patient will be resumed on his home Lantus and continue with pre-meal insulin -Diabetic peripheral neuropathy continue gabapentin and Cymbalta -Depression -Atrial fibrillation presently rate controlled sinus rhythm with a patient is on Eliquis which will be continued -Severe coronary artery disease with multiple stents in the past -DVT in the past -Gastroesophageal reflux disease -Obesity and sleep apnea Recommendations and discussion: Recommend to continue current medications, management, and symptomatic treatment. Patient will be started on 20 mg IV Lasix daily and will continue to monitor closely. Last night patient had a brief episode of right sided facial numbness with headache along with right upper and lower extremity weakness and CAT scan was done showing cerebral cortical atrophy otherwise negative CT. Neurology was consulted and is currently pending at this time. Case management and social work are following closely for possible [facility] placement once stabilized. Will continue to monitor closely. Will repeat a.m. labs. Sodium today is 123. Psychiatry is following and has made suggestions for possible transfer to [facility] facility as he has multiple complex medical issues and would not be a good candidate in the inpatient psychiatric unit here. Extremely guarded prognosis. Further recommendations to follow.
[2019-03-11] MEDS: NON FORMULARY DRUG (Rosuvastatin 10 MG) PO SCH (13:18)
[2019-03-11 13:27] LABS: Glucose,Whole Blood 321 mg/dL (75-99)
[2019-03-11] MEDS: FUROSEMIDE 10 MG/ML 2 ML VIAL IV SCH (16:54)
[2019-03-11] MEDS: AZTREONAM 2 GM in SODIUM CHLORIDE 0.9% 100 ML IVPB SCH (16:55)
[2019-03-11 17:19] LABS: Glucose,Whole Blood 283 mg/dL (75-99)
--- NOTE | 2019-03-11 17:36 | P.CNNES ---
History of Present Illness Consult date: 03/11/19 Requesting physician: Radha Stewart Reason for Consult: Right facial numbness and weakness. History of Present Illness: Patient is a 43-year-old male, who has history of diabetes for last 19 years, was very poorly controlled but getting better, history of depression, multiple medical issues, CHF. Patient has been feeling depressed, as March 10 joseph the 18th anniversary for his son's passing away. He has expressed suicidal ideation by overdosing on insulin. However he did not do that. He was brought to the hospital. Patient was in the monitored bed. Patient developed significant hyponatremia with sodium of 123, which prompted transfer to the ICU. 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 Patient states that shortly after his rolled right side of the body became numb. Patient underwent computed tomography scan of the head, which revealed no acute process. Neurology was consulted for numbness and tingling of right side of the body. Patient denies weakness, only numbness. Denies slurred speech, problem with the vision. Patient last hemoglobin A1c 9.8 on 12/13/2018. Patient BU and is 36, creatinine 0.86. Patient's cholesterol is 147, LDL 81, HDL 44. B12 882 and folate 8.1 on 12/11/2017. Thyroid functions normal as of May 2018. Patient has history of AICD placement after he had a cardiopulmonary arrest at [facility]. He has severe CHF. Patient had a carotid Doppler on 11/10/2018, which revealed bilateral atherosclerotic plaque with no significant hemodynamic stenosis. Antegrade flow in both vertebral arteries. Patient's 2-D echo from 11/29/2018 showed paced rhythm. There is borderline concentric LVH. Patient's EF is 20-25%. Global hypokinesis. Right ventricle is mildly enlarged. Interatrial and interventricular septum intact. Patient has history of diabetes for 19 years. Also has hypertension. Patient never used tobacco. He has not drank any alcohol for the last 9 years. Review of Systems Shortness of breath, denies chest pain at this time. Completes of numbness of right side. Denies headache problem with the vision. Patient does have peripheral neuropathy from diabetes. Denies abdominal pain. Denies neck pain. Please refer to HPI for details also. Past Medical History Past Medical History: Asthma, Coronary Artery Disease (CAD), Chest Pain / Angina, Heart Failure, CVA/TIA, Diabetes Mellitus, Deep Vein Thrombosis (DVT), GERD/Reflux, Hyperlipidemia, Hypertension, Myocardial Infarction (TN), Osteoarthritis (OA), Pneumonia, Skin Disorder, Sleep Apnea/CPAP/BIPAP Additional Past Medical History / Comment(s): multiple vessel CAD, ischemic cardiomyopathy, diabetic neuropathy bilateral hands and feet, hypertensive cardiovascular disease, SHELIA with no device, chronic gastritis, degenerative disc disease, chronic back pain, depression with hx of suicide attempts, gastroparesis, psoriasis, UTI, migraines, TIA, PUD, hiatal hernia, L rotator cuff tear, bronchitis, pseudoaneurysm L groin post procedure. 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 Last Myocardial Infarction Date:: October 2017 History of Any Multi-Drug Resistant Organisms: MRSA Date of last positivie culture/infection: 11/05/17 (Culture done at [facility]) MDRO Source:: legs Past Surgical History: AICD, Appendectomy, Cholecystectomy, Heart Catheterization With Stent, Hernia Repair Additional Past Surgical History / Comment(s): Pt has had multiple cardiac procedures- caths/stents/PTCA, last stent placed at [facility] -October2017, SAVANNAH, R inguinal hernia repair, umbilical hernia repair, 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 Date of Last Stent Placement:: 10/2018 Type of Cardiac Device: Biventricular Pacemaker, AICD Device Placement Date:: 09/19/15 Past Psychological History: Anxiety, Depression, PTSD Additional Psychological History / Comment(s): Several suicide attempts with use of insulin. PTSD - in 2000 his 3mo old son in his arms (born 2 months premature). He has a walker at home if needed. He drives.pt has 2 adult stepchildren at home with him most of the time. Spouse manages his medications. Smoking Status: Never smoker Past Alcohol Use History: None Reported Additional Past Alcohol Use History / Comment(s): Past alcohol abuse - pt states he quit drinking over 8yrs ago. Past Drug Use History: None Reported Additional Drug Use History / Comment(s): Pt has smoked marijuana in the past - last smoked in 1999. - Past Family History Mother Family Medical History: Coronary Artery Disease (CAD), Myocardial Infarction (TN) Additional Family Medical History / Comment(s): 7 TN and faulty heart valve. Pt does not know the age when mother had her TN's. Father History Unknown: Yes Additional Family Medical History / Comment(s): Does not know who father is. Brother(s) Family Medical History: Cancer, Congestive Heart Failure (CHF), Myocardial Infarction (TN) Additional Family Medical History / Comment(s): Parkinsons. Pt does not know at what age his brother had an TN. Patient's other brother has lung CA Patient has Family Medical History: No Reported History Additional Family Medical History / Comment(s): There is a strong family history for heart disease, hypertension, and diabetes. Medications and Allergies Home Medications Medication Instructions Recorded Confirmed Type Pantoprazole [Protonix] 40 mg PO DAILY 04/01/18 03/08/19 History Nitroglycerin Sl Tabs [Nitrostat] 0.4 mg SUBLINGUAL Q5M PRN 11/08/18 03/08/19 History Tamsulosin HCl [Flomax] 0.4 mg PO DAILY 11/08/18 03/08/19 History Apixaban [Eliquis] 5 mg PO BID 02/27/19 03/08/19 History Clopidogrel [Plavix] 75 mg PO DAILY 02/27/19 03/08/19 History Albuterol Sulfate [Ventolin HFA] 2 puff INHALATION RT-Q6H PRN 03/08/19 03/08/19 History Bumetanide [BUMEX] 2 mg PO DAILY 03/08/19 03/08/19 History Carvedilol [Coreg] 3.125 mg PO BID 03/08/19 03/08/19 History DULoxetine HCL [Cymbalta] 60 mg PO BID 03/08/19 03/08/19 History Gabapentin [Neurontin] 100 mg PO TID 03/08/19 03/08/19 History Insulin Glargine [Lantus] 30 units SQ HS 03/08/19 03/08/19 History Lisinopril [Zestril] 5 mg PO DAILY 03/08/19 03/08/19 History Methocarbamol [Robaxin] 500 mg PO QID 03/08/19 03/08/19 History Primidone [Mysoline] 100 mg PO BID 03/08/19 03/08/19 History Rosuvastatin [Crestor] 10 mg PO DAILY 03/08/19 03/08/19 History Spironolactone [Aldactone] 25 mg PO DAILY 03/08/19 03/08/19 History Allergies Allergy/AdvReac Type Severity Reaction Status Date / Time erythromycin base Allergy Severe Rash/Hives Verified 03/08/19 08:03 [Erythromycin Base] cephalexin monohydrate Allergy Unknown Rash/Hives Verified 03/08/19 08:03 [From Keflex] codeine Allergy Unknown Unknown Verified 03/08/19 08:03 meclizine Allergy Unknown Unknown Verified 03/08/19 08:03 Penicillins Allergy Unknown Rash/Hives Verified 03/08/19 08:03 shellfish derived Allergy Unknown Anaphylaxis Verified 03/08/19 08:03 adhesive tape Allergy Rash/Hives Verified 03/08/19 08:03 Fish Containing Products Allergy Anaphylaxis Verified 03/08/19 08:03 [Fish] Iodinated Contrast Media Allergy Anaphylaxis Verified 03/08/19 08:03 silver Allergy Rash/Hives Verified 03/08/19 08:03 [From Tegaderm AG Mesh] naproxen AdvReac Unknown Compromises Verified 03/08/19 08:03 Kidney Function atorvastatin calcium AdvReac Myalgia Verified 03/08/19 08:03 [From Lipitor] hydrocodone [From [place]] AdvReac Rapid Verified 03/08/19 08:03 Heart Rate Physical Examination - Vital Signs Vital Signs: Vital Signs Temp Pulse Resp BP Pulse Ox 03/11/19 08:00 97.9 F 87 20 152/76 100 03/11/19 04:00 97.7 F 87 19 139/73 100 03/11/19 00:00 98.4 F 83 20 94/67 97 03/10/19 20:00 97.7 F 86 20 90/66 99 Intake and Output 03/11/19 03/11/19 03/11/19 06:59 14:59 22:59 Output Total 200 Balance -200 Output: Urine 200 Other: Voiding Method Urinal Weight 106 kg On examination patient is a middle aged male, in no distress. Patient has a flat affect. There is no carotid bruit. He has peripheral edema. S1 and S2 audible. On neurological examination patient is alert and awake oriented to time place and person. Speech and language functions are normal. On cranial examination patient's pupils are round and reacting, visual hendrix are full. Face is symmetric and tongue protrudes to the midline. Palatal elevation and sensation normal. On muscle strength testing patient has mild right drift without pronation. The strength is slightly weak 5-on the right deltoid and biceps. Triceps and sole buffer are equal bilaterally. Hip flexion is equal, ankles and toes are normal. Sensory to touch is equal on both sides. Patient has decreased sensation distally in the feet from neuropathy. Reflexes are very hypoactive, and plantar is probably up on the right, down and left. No ataxia for [id number] testing. Tone and bulk of muscles normal. Results - Laboratory Findings CBC and BMP: 03/11/19 09:31 03/11/19 09:31 Abnormal Lab Findings: Abnormal Labs 03/08/19 03/08/19 03/08/19 03:42 04:36 05:42 RBC 4.27 L Hgb 11.5 L Hct 36.6 L RDW 19.4 H Lymphocytes # 0.7 L Sodium Chloride Carbon Dioxide BUN Glucose POC Glucose (mg/dL) 267 H Calcium Alkaline Phosphatase Total Creatine Kinase Total Protein Urine Protein Trace H Urine Blood Small H Ur Leukocyte Esterase Large H Urine WBC >182 H Urine WBC Clumps Many H Urine Bacteria Many H 03/08/19 03/08/19 03/08/19 05:42 05:42 11:57 RBC Hgb Hct RDW Lymphocytes # Sodium 123 L Chloride 87 L Carbon Dioxide BUN 41 H Glucose 274 H POC Glucose (mg/dL) 287 H Calcium Alkaline Phosphatase 230 H Total Creatine Kinase 48 L Total Protein 6.2 L Urine Protein Urine Blood Ur Leukocyte Esterase Urine WBC Urine WBC Clumps Urine Bacteria 03/08/19 03/08/19 03/08/19 12:13 16:21 17:58 RBC Hgb Hct RDW Lymphocytes # Sodium Chloride Carbon Dioxide BUN Glucose POC Glucose (mg/dL) 222 H Calcium Alkaline Phosphatase Total Creatine Kinase 37 L 34 L Total Protein Urine Protein Urine Blood Ur Leukocyte Esterase Urine WBC Urine WBC Clumps Urine Bacteria 03/08/19 03/09/19 03/09/19 20:43 07:55 07:55 RBC 3.95 L Hgb 10.8 L Hct 34.4 L RDW 19.3 H Lymphocytes # Sodium 128 L Chloride 92 L Carbon Dioxide BUN 36 H Glucose 102 H POC Glucose (mg/dL) 246 H Calcium Alkaline Phosphatase Total Creatine Kinase Total Protein Urine Protein Urine Blood Ur Leukocyte Esterase Urine WBC Urine WBC Clumps Urine Bacteria 03/09/19 03/09/19 03/09/19 10:50 11:38 17:58 RBC Hgb Hct RDW Lymphocytes # Sodium Chloride Carbon Dioxide BUN Glucose POC Glucose (mg/dL) 102 H 109 H 134 H Calcium Alkaline Phosphatase Total Creatine Kinase Total Protein Urine Protein Urine Blood Ur Leukocyte Esterase Urine WBC Urine WBC Clumps Urine Bacteria 03/09/19 03/10/19 03/10/19 21:06 04:41 06:44 RBC Hgb Hct RDW Lymphocytes # Sodium 122 L Chloride 87 L Carbon Dioxide BUN 34 H Glucose 231 H POC Glucose (mg/dL) 225 H 282 H Calcium Alkaline Phosphatase Total Creatine Kinase Total Protein Urine Protein Urine Blood Ur Leukocyte Esterase Urine WBC Urine WBC Clumps Urine Bacteria 03/10/19 03/10/19 03/10/19 11:50 13:21 14:55 RBC Hgb Hct RDW Lymphocytes # Sodium Chloride Carbon Dioxide BUN Glucose POC Glucose (mg/dL) 183 H 248 H 280 H Calcium Alkaline Phosphatase Total Creatine Kinase Total Protein Urine Protein Urine Blood Ur Leukocyte Esterase Urine WBC Urine WBC Clumps Urine Bacteria 03/10/19 03/10/19 03/10/19 17:25 18:08 21:18 RBC Hgb Hct RDW Lymphocytes # Sodium Chloride Carbon Dioxide BUN Glucose POC Glucose (mg/dL) 208 H 213 H 268 H Calcium Alkaline Phosphatase Total Creatine Kinase Total Protein Urine Protein Urine Blood Ur Leukocyte Esterase Urine WBC Urine WBC Clumps Urine Bacteria 03/10/19 03/11/19 03/11/19 23:44 08:16 09:31 RBC 3.66 L Hgb 10.2 L Hct 31.5 L RDW 18.2 H Lymphocytes # Sodium Chloride Carbon Dioxide BUN Glucose POC Glucose (mg/dL) 231 H 187 H Calcium Alkaline Phosphatase Total Creatine Kinase Total Protein Urine Protein Urine Blood Ur Leukocyte Esterase Urine WBC Urine WBC Clumps Urine Bacteria 03/11/19 03/11/19 03/11/19 09:31 12:00 13:15 RBC Hgb Hct RDW Lymphocytes # Sodium 123 L Chloride 93 L Carbon Dioxide 21 L BUN 36 H Glucose 203 H POC Glucose (mg/dL) 210 H 321 H Calcium 8.3 L Alkaline Phosphatase Total Creatine Kinase Total Protein Urine Protein Urine Blood Ur Leukocyte Esterase Urine WBC Urine WBC Clumps Urine Bacteria Assessment and Plan Assessment: * 43-year-old male with long-standing history of diabetes, multiple medical problems, has developed numbness of right side of the body including face arm and leg since last night. Exam revealed mild right proximal arm weakness, and possible Babinski on the right. Rule out left thalamic lacunar stroke. * Diabetes, not well controlled * Congestive heart failure due to cardiomyopathy * Previous history of cardiac arrest * Coronary artery disease * Depression with suicidal ideation. * Hypertension. Plan: * Patient has developed numbness of right side of the body including face arm and leg. Symptoms could be due to left thalamic lacunar due to uncontrolled diabetes and other vascular risk factors. Cardioembolic event is also a possibility. * Patient cannot have MRI due to presence of pacemaker. * Patient is already on appropriate medical treatment with Apixaban 5 mg twice a day and Plavix 75 mg daily. Adding another agent will pose high risk of hemorrhagic complications. * Patient had a normal carotid Doppler on 11/10/2018, therefore no reason to rep eat it. * Patient also had a 2-D echo performed recently which showed no thrombus, although has severe CHF, which could be a embolic risk factor. * I would suggest optimizing control of diabetes to target A1c <7.0. * Patient is currently not on statins due to ALLERGY to Lipitor. Consider alternate agent if possible. * Continue current medications as above. * Your medical management. * Neurology coverage not available on the weekend. * Thank you very much for allowing me to participate in care of patient.
[2019-03-11 20:32] LABS: Glucose,Whole Blood 201 mg/dL (75-99)
[2019-03-11] MEDS: INSULIN DETEMIR (LEVEMIR) 100 UNIT/ML SYR SQ SCH (20:53)
--- NOTE | 2019-03-11 21:46 | P.CONS ---
History of Present Illness - Reason for Consult Consult date: 03/11/19 - Chief Complaint Suicidal ideation - History of Present Illness 43-year-old male who has multiple medical troubles which includes diabetes mellitus type 2 for nearly 19 years has been poorly controlled with multiple complications that includes coronary artery disease. Patient is relat ed to have had recent hospitalizations with cardiopulmonary arrest. He has an AICD that is in place. We have requested the nursing staff have patient sign release of information from his recent hospitalizations to further assess the events during. He now presents with an acute depression event with suicidal ideation. He has also been seen by neurology because of concerns to numbness and tingling on the right side of his body. He has developed significant hyponatremia which is why he was brought into the intensive care unit. The patient is overwhelmed at 18th anniversary of his son's passing. Infectious disease consultation requested with concerns to urinary tract infection. The patient did have urinary incontinence in the emergency center. Review of Systems ROS unobtainable: due to mental status Past Medical History Past Medical History: Asthma, Coronary Artery Disease (CAD), Chest Pain / Angina, Heart Failure, CVA/TIA, Diabetes Mellitus, Deep Vein Thrombosis (DVT), GERD/Reflux, Hyperlipidemia, Hypertension, Myocardial Infarction (GA), Osteoarthritis (OA), Pneumonia, Skin Disorder, Sleep Apnea/CPAP/BIPAP Additional Past Medical History / Comment(s): multiple vessel CAD, ischemic cardiomyopathy, diabetic neuropathy bilateral hands and feet, hypertensive cardiovascular disease, SHELIA with no device, chronic gastritis, degenerative disc disease, chronic back pain, depression with hx of suicide attempts, gastroparesis, psoriasis, UTI, migraines, TIA, PUD, hiatal hernia, L rotator cuff tear, bronchitis, pseudoaneurysm L groin post procedure. 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 Last Myocardial Infarction Date:: October 2017 History of Any Multi-Drug Resistant Organisms: MRSA Year Discovered:: 11/05/17 (Culture done at [facility]) MDRO Source:: legs Past Surgical History: AICD, Appendectomy, Cholecystectomy, Heart Catheteriza tion With Stent, Hernia Repair Additional Past Surgical History / Comment(s): Pt has had multiple cardiac procedures- caths/stents/PTCA, last stent placed at [facility] -October2017, S[place], R inguinal hernia repair, umbilical hernia repair, right orchiectomy due to necrosis, right hand surgery r/t injury, colonoscopy, cystoscopy (scraped bladder parrish), stents 10/2017, cautarize right lung, Past Anesthesia/Blood Transfusion Reactions: No Reported Reaction Additional Past Anesthesia/Blood Transfusion Reaction / Comm: . Date of Last Stent Placement:: 10/2018 Type of Cardiac Device: Biventricular Pacemaker, AICD Device Placement Date:: 09/19/15 Past Psychological History: Anxiety, Depression, PTSD Additional Psychological History / Comment(s): Several suicide attempts with use of insulin. PTSD - in 2000 his 3mo old son in his arms (born 2 months premature). He has a walker at home if needed. He drives.pt has 2 adult stepchildren at home with him most of the time. Spouse manages his medications. Smoking Status: Never smoker Past Alcohol Use History: None Reported Additional Past Alcohol Use History / Comment(s): Past alcohol abuse - pt states he quit drinking over 8yrs ago. Past Drug Use History: None Reported Additional Drug Use History / Comment(s): Pt has smoked marijuana in the past - last smoked in 1999. - Past Family History Mother Family Medical History: Coronary Artery Disease (CAD), Myocardial Infarction (GA) Additional Family Medical History / Comment(s): 7 GA and faulty heart valve. Pt does not know the age when mother had her GA's. Father History Unknown: Yes Additional Family Medical History / Comment(s): Does not know who father is. Brother(s) Family Medical History: Cancer, Congestive Heart Failure (CHF), Myocardial Infarction (GA) Additional Family Medical History / Comment(s): Parkinsons. Pt does not know at what age his brother had an GA. Patient's other brother has lung CA Patient has Family Medical History: No Reported History Additional Family Medical History / Comment(s): There is a strong family history for heart disease, hypertension, and diabetes. Medications and Allergies Home Medications and Allergies Comment(s): Current Medications Acetaminophen (Tylenol Tab) 650 mg PO Q4HR PRN PRN Reason: Fever and/ or Pain Albuterol Sulfate (Ventolin Nebulized) 2.5 mg INHALATION RT-Q6H PRN PRN Reason: Wheezing Apixaban (Eliquis) 5 mg PO BID JAKE Last Admin: 03/11/19 20:51 Dose: 5 mg Documented by: Clopidogrel Bisulfate (Plavix) 75 mg PO DAILY [facility] Last Admin: 03/11/19 09:47 Dose: 75 mg Documented by: Duloxetine HCl (Cymbalta) 60 mg PO BID [facility] Last Admin: 03/11/19 20:53 Dose: 60 mg Documented by: Furosemide (Lasix) 20 mg IV DAILY [facility] Last Admin: 03/11/19 16:54 Dose: 20 mg Documented by: Gabapentin (Neurontin) 100 mg PO TID [facility] Last Admin: 03/11/19 20:53 Dose: 100 mg Documented by: Aztreonam 2 gm/ Sodium (Chloride) 100 mls @ 100 mls/hr IVPB Q8HR [facility]; Protocol Stop: 03/16/19 15:01 Last Admin: 03/11/19 16:55 Dose: 100 mls/hr Documented by: Insulin Aspart (Novolog) 0 unit SQ ACHS [facility]; Protocol Last Admin: 03/11/19 20:53 Dose: 2 unit Documented by: Insulin Detemir (Levemir) 30 unit SQ HS [facility] Last Admin: 03/11/19 20:53 Dose: 30 unit Documented by: Metoprolol Tartrate (Lopressor) 25 mg PO BID [facility] Last Admin: 03/11/19 20:51 Dose: 25 mg Documented by: Naloxone HCl (Narcan) 0.2 mg IV Q2M PRN PRN Reason: Opioid Reversal Nitroglycerin (Nitrostat) 0.4 mg SUBLINGUAL Q5M PRN PRN Reason: Chest Pain Last Admin: 03/09/19 11:09 Dose: 0.4 mg Documented by: Non-Formulary Medication (Rosuvastatin) 10 mg PO DAILY [facility] Last Admin: 03/11/19 13:18 Dose: Not Given Documented by: Ondansetron HCl (Zofran) 4 mg IVP Q6HR PRN PRN Reason: Nausea And Vomiting Last Admin: 03/10/19 15:00 Dose: 4 mg Documented by: Pantoprazole Sodium (Protonix) 40 mg PO AC-BRKFST [facility] Last Admin: 03/11/19 08:20 Dose: 40 mg Documented by: Primidone (Mysoline) 100 mg PO BID [facility] Last Admin: 03/11/19 20:53 Dose: 100 mg Documented by: Tamsulosin HCl (Flomax) 0.4 mg PO DAILY [facility] Last Admin: 03/11/19 09:48 Dose: 0.4 mg Documented by: Tramadol HCl (Ultram) 50 mg PO QID PRN PRN Reason: Pain Last Admin: 03/10/19 13:27 Dose: 50 mg Documented by: Home Medications Medication Instructions Recorded Confirmed Type Pantoprazole [Protonix] 40 mg PO DAILY 04/01/18 03/08/19 History Nitroglycerin Sl Tabs [Nitrostat] 0.4 mg SUBLINGUAL Q5M PRN 11/08/18 03/08/19 History Tamsulosin HCl [Flomax] 0.4 mg PO DAILY 11/08/18 03/08/19 History Apixaban [Eliquis] 5 mg PO BID 02/27/19 03/08/19 History Clopidogrel [Plavix] 75 mg PO DAILY 02/27/19 03/08/19 History Albuterol Sulfate [Ventolin HFA] 2 puff INHALATION RT-Q6H PRN 03/08/19 03/08/19 History Bumetanide [BUMEX] 2 mg PO DAILY 03/08/19 03/08/19 History Carvedilol [Coreg] 3.125 mg PO BID 03/08/19 03/08/19 History DULoxetine HCL [Cymbalta] 60 mg PO BID 03/08/19 03/08/19 History Gabapentin [Neurontin] 100 mg PO TID 03/08/19 03/08/19 History Insulin Glargine [Lantus] 30 units SQ HS 03/08/19 03/08/19 History Lisinopril [Zestril] 5 mg PO DAILY 03/08/19 03/08/19 History Methocarbamol [Robaxin] 500 mg PO QID 03/08/19 03/08/19 History Primidone [Mysoline] 100 mg PO BID 03/08/19 03/08/19 History Rosuvastatin [Crestor] 10 mg PO DAILY 03/08/19 03/08/19 History Spironolactone [Aldactone] 25 mg PO DAILY 03/08/19 03/08/19 History Allergies Allergy/AdvReac Type Severity Reaction Status Date / Time erythromycin base Allergy Severe Rash/Hives Verified 03/08/19 08:03 [Erythromycin Base] cephalexin monohydrate Allergy Unknown Rash/Hives Verified 03/08/19 08:03 [From Keflex] codeine Allergy Unknown Unknown Verified 03/08/19 08:03 meclizine Allergy Unknown Unknown Verified 03/08/19 08:03 Penicillins Allergy Unknown Rash/Hives Verified 03/08/19 08:03 shellfish derived Allergy Unknown Anaphylaxis Verified 03/08/19 08:03 adhesive tape Allergy Rash/Hives Verified 03/08/19 08:03 Fish Containing Products Allergy Anaphylaxis Verified 03/08/19 08:03 [Fish] Iodinated Contrast Media Allergy Anaphylaxis Verified 03/08/19 08:03 silver Allergy Rash/Hives Verified 03/08/19 08:03 [From Tegaderm AG Mesh] naproxen AdvReac Unknown Compromises Verified 03/08/19 08:03 Kidney Function atorvastatin calcium AdvReac Myalgia Verified 03/08/19 08:03 [From Lipitor] hydrocodone [From Cade] AdvReac Rapid Verified 03/08/19 08:03 Heart Rate Physical Exam Vitals: Vital Signs Temp Pulse Resp BP Pulse Ox 03/11/19 16:00 97.7 F 84 24 104/75 98 03/11/19 14:00 84 7 L 82/67 99 03/11/19 12:00 97.8 F 83 18 138/82 99 03/11/19 10:00 84 3 L 168/76 100 03/11/19 08:00 97.9 F 87 20 152/76 100 03/11/19 04:00 97.7 F 87 19 139/73 100 03/11/19 00:00 98.4 F 83 20 94/67 97 Intake and Output 03/11/19 03/11/19 03/11/19 06:59 14:59 22:59 Intake Total 600 350 Output Total 200 400 Balance -200 200 350 Intake: Oral 600 350 Output: Urine 200 400 Other: Voiding Method Urinal Weight 106 kg 43-year-old male who looks considerably older than his stated age HEENT: Anicteric conjunctiva are pink and moist nasal mucosa grossly intact without significant lesions, there is no thrush. Dentition poor Neck: The neck is supple without significant lymphadenopathy or thyromegaly. Lungs: Basilar crackles Heart: Paced rhythm 2/6 systolic murmur left sternal border Abdomen: Positive bowel sounds soft and nontender without palpable masses or organomegaly. There was no guarding or rebound. Extremities: The upper extremities have excellent pulses they are symmetric, no significant petechiae or telangiectasia. No splinter hemorrhages were noted. Lower extremities have some generalized edema Neurologically patient is somewhat sedate Results CBC & Chem 7: 03/11/19 09:31 03/11/19 09:31 Labs: Abnormal Lab Results - Last 24 Hours (Table) 03/10/19 03/11/19 03/11/19 Range/Units 23:44 08:16 09:31 RBC 3.66 L (4.30-5.90) m/uL Hgb 10.2 L (13.0-17.5) gm/dL Hct 31.5 L (39.0-53.0) % RDW 18.2 H (11.5-15.5) % Sodium (137-145) mmol/L Chloride (98-107) mmol/L Carbon Dioxide (22-30) mmol/L BUN (9-20) mg/dL Glucose (74-99) mg/dL POC Glucose (mg/dL) 231 H 187 H (75-99) mg/dL Calcium (8.4-10.2) mg/dL 03/11/19 03/11/19 03/11/19 Range/Units 09:31 12:00 13:15 RBC (4.30-5.90) m/uL Hgb (13.0-17.5) gm/dL Hct (39.0-53.0) % RDW (11.5-15.5) % Sodium 123 L (137-145) mmol/L Chloride 93 L (98-107) mmol/L Carbon Dioxide 21 L (22-30) mmol/L BUN 36 H (9-20) mg/dL Glucose 203 H (74-99) mg/dL POC Glucose (mg/dL) 210 H 321 H (75-99) mg/dL Calcium 8.3 L (8.4-10.2) mg/dL 03/11/19 03/11/19 Range/Units 16:56 20:31 RBC (4.30-5.90) m/uL Hgb (13.0-17.5) gm/dL Hct (39.0-53.0) % RDW (11.5-15.5) % Sodium (137-145) mmol/L Chloride (98-107) mmol/L Carbon Dioxide (22-30) mmol/L BUN (9-20) mg/dL Glucose (74-99) mg/dL POC Glucose (mg/dL) 283 H 201 H (75-99) mg/dL Calcium (8.4-10.2) mg/dL Laboratory Results WBC 5.4 k/uL (3.8-10.6) 03/11/19 09:31 RBC 3.66 m/uL (4.30-5.90) L 03/11/19 09:31 Hgb 10.2 gm/dL (13.0-17.5) L 03/11/19 09:31 Hct 31.5 % (39.0-53.0) L 03/11/19 09:31 MCV 86.0 fL (80.0-100.0) 03/11/19 09:31 MCH 27.9 pg (25.0-35.0) 03/11/19 09:31 MCHC 32.5 g/dL (31.0-37.0) 03/11/19 09:31 RDW 18.2 % (11.5-15.5) H 03/11/19 09:31 Plt Count 240 k/uL (150-450) 03/11/19 09:31 Neutrophils % 70 % 03/11/19 09:31 Lymphocytes % 18 % 03/11/19 09:31 Monocytes % 6 % 03/11/19 09:31 Eosinophils % 1 % 03/11/19 09:31 Basophils % 1 % 03/11/19 09:31 Neutrophils # 3.8 k/uL (1.3-7.7) 03/11/19 09:31 Lymphocytes # 1.0 k/uL (1.0-4.8) 03/11/19 09:31 Monocytes # 0.3 k/uL (0-1.0) 03/11/19 09:31 Eosinophils # 0.1 k/uL (0-0.7) 03/11/19 09:31 Basophils # 0.1 k/uL (0-0.2) 03/11/19 09:31 Hypochromasia Moderate 03/11/19 09:31 Anisocytosis Slight 03/11/19 09:31 Microcytosis Slight 03/08/19 05:42 Sodium 123 mmol/L (137-145) L 03/11/19 09:31 Potassium 4.5 mmol/L (3.5-5.1) 03/11/19 09:31 Chloride 93 mmol/L (98-107) L 03/11/19 09:31 Carbon Dioxide 21 mmol/L (22-30) L 03/11/19 09:31 Anion Gap 9 mmol/L 03/11/19 09:31 BUN 36 mg/dL (9-20) H 03/11/19 09:31 Creatinine 0.86 mg/dL (0.66-1.25) 03/11/19 09:31 Est GFR (CKD-EPI)AfAm >90 (>60 ml/min/1.73 sqM) 03/11/19 09:31 Est GFR (CKD-EPI)NonAf >90 (>60 ml/min/1.73 sqM) 03/11/19 09:31 Glucose 203 mg/dL (74-99) H 03/11/19 09:31 POC Glucose (mg/dL) 201 mg/dL (75-99) H 03/11/19 20:31 POC Glu Hurl Shaker ID Danae Alvarez 03/11/19 20:31 Plasma Lactic Acid [place] 1.8 mmol/L (0.7-2.0) 03/11/19 14:06 Calcium 8.3 mg/dL (8.4-10.2) L 03/11/19 09:31 Total Bilirubin 0.8 mg/dL (0.2-1.3) 03/08/19 05:42 AST 27 U/L (17-59) 03/08/19 05:42 ALT 35 U/L (21-72) 03/08/19 05:42 Alkaline Phosphatase 230 U/L (38-126) H 03/08/19 05:42 Total Creatine Kinase 34 U/L (55-170) L 03/08/19 17:58 CK-MB (CK-2) 1.3 ng/mL (0.0-2.4) 03/08/19 17:58 CK-MB (CK-2) Rel Index 3.8 03/08/19 17:58 Troponin I 0.016 ng/mL (0.000-0.034) 03/10/19 19:01 Total Protein 6.2 g/dL (6.3-8.2) L 03/08/19 05:42 Albumin 3.5 g/dL (3.5-5.0) 03/08/19 05:42 Urine Color Yellow 03/08/19 04:36 Urine Appearance Cloudy (Clear) 03/08/19 04:36 Urine pH 5.0 (5.0-8.0) 03/08/19 04:36 Ur Specific [place] 1.013 (1.001-1.035) 03/08/19 04:36 Urine Protein Trace (Negative) H 03/08/19 04:36 Urine Glucose (UA) Negative (Negative) 03/08/19 04:36 Urine Ketones Negative (Negative) 03/08/19 04:36 Urine Blood Small (Negative) H 03/08/19 04:36 Urine Nitrite Negative (Negative) 03/08/19 04:36 Urine Bilirubin Negative (Negative) 03/08/19 04:36 Urine Urobilinogen <2.0 mg/dL (<2.0) 03/08/19 04:36 Ur Leukocyte Esterase Large (Negative) H 03/08/19 04:36 Urine WBC >182 /hpf (0-5) H 03/08/19 04:36 Urine WBC Clumps Many /hpf (None) H 03/08/19 04:36 Urine Bacteria Many /hpf (None) H 03/08/19 04:36 Urine Opiates Screen Not Detected (NotDetected) 03/08/19 04:36 Ur Oxycodone Screen Not Detected (NotDetected) 03/08/19 04:36 Urine Methadone Screen Not Detected (NotDetected) 03/08/19 04:36 Ur Propoxyphene Screen Not Detected (NotDetected) 03/08/19 04:36 Ur Barbiturates Screen Not Detected (NotDetected) 03/08/19 04:36 U Tricyclic Antidepress Not Detected (NotDetected) 03/08/19 04:36 Ur Phencyclidine Scrn Not Detected (NotDetected) 03/08/19 04:36 Ur Amphetamines Screen Not Detected (NotDetected) 03/08/19 04:36 U Methamphetamines Scrn Not Detected (NotDetected) 03/08/19 04:36 U Benzodiazepines Scrn Not Detected (NotDetected) 03/08/19 04:36 Urine Cocaine Screen Not Detected (NotDetected) 03/08/19 04:36 U Marijuana (THC) Screen Not Detected (NotDetected) 03/08/19 04:36 Assessment and Plan (1) AICD (automatic cardioverter/defibrillator) present Current Visit: No Status: Acute Code(s): Z95.810 - PRESENCE OF AUTOMATIC (IMPLANTABLE) CARDIAC DEFIBRILLATOR SNOMED Code(s): 297705828 (2) Suicidal ideation Current Visit: No Status: Acute Priority: High Code(s): R45.851 - SUICIDAL IDEATIONS SNOMED Code(s): 3308628 (3) Systolic CHF, acute on chronic Current Visit: No Status: Acute Code(s): I50.23 - ACUTE ON CHRONIC SYSTOLIC (CONGESTIVE) HEART FAILURE SNOMED Code(s): 075869132 (4) Bacteriuria with pyuria Narrative/Plan: 43-year-old male with a very complex past medical history with multiple hospitalizations with notation of cardiopulmonary arrest and AICD has been placed. Presents to our facility with suicidal ideation. Initial workup reveal s evidence of urinalysis that is quite abnormal with greater than 182 white blood cells many bacteria being seen. Urine culture is to be sent. Blood culture is pending. The white count is normal and he is not having fever. With his uncontrolled diabetes is under by single A1c of 9.8 on the last check urinary infection of concern. He has many ALLERGIES as noted in counseling as active as been initiated. Possible further help direct her course of antibiotic therapy and we'll de-escalate as possible. Current Visit: Yes Status: Acute Code(s): R82.71 - BACTERIURIA; R82.81 - SNOMED Code(s): 180142916
[2019-03-11 22:05] LABS: Glucose,Whole Blood 235 mg/dL (75-99)
[2019-03-11] MEDS: NITROGLYCERIN SL TABS 0.4 MG TAB SUBLINGUAL PRN ×2 (22:18→22:31)
[2019-03-11] MEDS ORDERED: KETOROLAC 30 MG/ML 1 ML VIAL IVP STA (22:38)
[2019-03-11 23:41] LABS: Glucose,Whole Blood 222 mg/dL (75-99)
[2019-03-12] MEDS: AZTREONAM 2 GM in SODIUM CHLORIDE 0.9% 100 ML IVPB SCH ×4 (01:39→23:38)
[2019-03-12] MEDS: HYDROmorphone 0.5 MG/0.5 ML SYRINGE IVP PRN ×3 (04:28→20:29)
[2019-03-12 06:07] LABS: Anisocytosis Slight; HCT 35.6 % (39.0-53.0); HGB 11.1 gm/dL (13.0-17.5); Hypochromasia Slight; MCH 26.3 pg (25.0-35.0); MCHC 31.1 g/dL (31.0-37.0); MCV 84.5 fL (80.0-100.0); Mean Platelet Volume 7.3; Microcytosis Slight; Platelet Count 333 k/uL (150-450); RBC 4.22 m/uL (4.30-5.90); RDW 19.1 % (11.5-15.5); WBC 11.4 k/uL (3.8-10.6)
[2019-03-12 06:14] LABS: Neutrophils % (M) 86 %; Nucleated Red Blood Cells 0 /100 WBC (0-0); Total Cells Counted 100
[2019-03-12 06:21] LABS: Calcium 8.3 mg/dL (8.4-10.2); Potassium 5.3 mmol/L (3.5-5.1)
[2019-03-12] MEDS: INSULIN ASPART (NovoLOG) 100 UNIT/ML VIAL SQ SCH ×4 (07:01→20:40)
[2019-03-12] MEDS: PANTOPRAZOLE 40 MG TABLET PO SCH (07:02)
[2019-03-12 07:18] LABS: Glucose,Whole Blood 202 mg/dL (75-99)
[2019-03-12] MEDS: TAMSULOSIN 0.4 MG CAP.ER.24H PO SCH (09:04)
[2019-03-12] MEDS: GABAPENTIN 100 MG CAP PO SCH ×3 (09:05→20:31)
[2019-03-12] MEDS: FUROSEMIDE 10 MG/ML 2 ML VIAL IV SCH (09:05)
[2019-03-12] MEDS: APIXABAN 5 MG TAB PO SCH ×2 (09:05→20:30)
[2019-03-12] MEDS: PRIMIDONE 50 MG TAB PO SCH ×2 (09:05→20:31)
[2019-03-12] MEDS: DULoxetine HCL 60 MG CAPSULE.DR PO SCH ×2 (09:05→20:30)
[2019-03-12] MEDS: METOPROLOL TARTRATE 25 MG TAB PO SCH ×2 (09:05→20:31)
[2019-03-12] MEDS: CLOPIDOGREL 75 MG TAB PO SCH (09:05)
[2019-03-12] MEDS: NON FORMULARY DRUG (Rosuvastatin 10 MG) PO SCH (09:06)
[2019-03-12] MEDS: traMADol 50 MG TAB PO PRN (09:20)
[2019-03-12 12:17] LABS: Glucose,Whole Blood 208 mg/dL (75-99)
--- NOTE | 2019-03-12 13:19 | P.CNPUL ---
History of Present Illness Consult date: 03/12/19 Chief complaint: Depression/suicidal ideation/extensive cardiac history History of present illness: 43-year-old male patient with extensive cardiac history with the patient has multivessel coronary artery disease, multiple PCI's, history of ischemic cardiomyopathy and the patient has an AICD in place, history of multiple infarcts, and addition to previous history of CVA, DVT, pulmonary embolism, diabetes mellitus, hypertension, hyperlipidemia whereas been known to our hospital and to services at [facility]. Not candidate for any further coronary interventions. Not candidate for cardiac transplantation. The patient has the patient was hospitalized for suicidal thoughts and ideations. He was seen by psychiatry. He is being considered for inpatient psychiatric evaluation. Is currently on Cymbalta 60 mg by mouth twice a day. He also has a bedside sitter. Hemodynamically stable. I noted an acute kidney injury that has developed over the past 24 hours. Creatinine is up to 1.3. Based on this, I decided to hold a Lasix for now. The patient does not take any other nephrotoxic agents. He is suspected UTI currently on aztreonam. He remains on long-term and to coagulation with Eliquis. He is able to follow commands and answering questions appropriately. No chest pain. No cough or sputum production. Review of Systems REVIEW OF SYSTEMS: CONSTITUTIONAL: Increased tiredness and fatigue HEENT: No recent visual problems or hearing problems. Denied any sore throat. CARDIOVASCULAR: Chronic dyspnea, exertional along with episodic chest pain has been on a chronic basis. No recent syncope. PULMONARY: Chronic dyspnea shortness of breath, no cough, no hemoptysis. GASTROINTESTINAL: No diarrhea, no nausea, no vomiting, no abdominal pain. NEUROLOGICAL: No headaches, no weakness, no numbness. HEMATOLOGICAL: Denies any bleeding or petechiae. GENITOURINARY: Denies any burning micturition, frequency, or urgency. MUSCULOSKELETAL/RHEUMATOLOGICAL: Denies any joint pain, swelling, or any muscle pain. ENDOCRINE: Denies any polyuria or polydipsia. The rest of the 14-point review of systems and it's positive for worsening depression Past Medical History Past Medical History: Asthma, Coronary Artery Disease (CAD), Chest Pain / Angina, Heart Failure, CVA/TIA, Diabetes Mellitus, Deep Vein Thrombosis (DVT), GERD/Reflux, Hyperlipidemia, Hypertension, Myocardial Infarction (OH), Osteoarthritis (OA), Pneumonia, Skin Disorder, Sleep Apnea/CPAP/BIPAP Additional Past Medical History / Comment(s): multiple vessel CAD, ischemic cardiomyopathy, diabetic neuropathy bilateral hands and feet, hypertensive cardiovascular disease, SHELIA with no device, chronic gastritis, degenerative disc disease, chronic back pain, depression with hx of suicide attempts, gastroparesis, psoriasis, UTI, migraines, TIA, PUD, hiatal hernia, L rotator cuff tear, bronchitis, pseudoaneurysm L groin post procedure. 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 Last Myocardial Infarction Date:: October 2017 History of Any Multi-Drug Resistant Organisms: MRSA Date of last positivie culture/infection: 11/05/17 (Culture done at [facility]) MDRO Source:: legs Past Surgical History: AICD, Appendectomy, Cholecystectomy, Heart Catheterization With Stent, Hernia Repair Additional Past Surgical History / Comment(s): Pt has had multiple cardiac procedures- caths/stents/PTCA, last stent placed at [facility] -October2017, [place], R inguinal hernia repair, umbilical hernia repair, 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 Date of Last Stent Placement:: 10/2018 Type of Cardiac Device: Biventricular Pacemaker, AICD Device Placement Date:: 09/19/15 Past Psychological History: Anxiety, Depression, PTSD Additional Psychological History / Comment(s): Several suicide attempts with use of insulin. PTSD - in 2000 his 3mo old son in his arms (born 2 months premature). He has a walker at home if needed. He drives.pt has 2 adult stepchildren at home with him most of the time. Spouse manages his medications. Smoking Status: Never smoker Past Alcohol Use History: None Reported Additional Past Alcohol Use History / Comment(s): Past alcohol abuse - pt states he quit drinking over 8yrs ago. Past Drug Use History: None Reported Additional Drug Use History / Comment(s): Pt has smoked marijuana in the past - last smoked in 1999. - Past Family History Mother Family Medical History: Coronary Artery Disease (CAD), Myocardial Infarction (OH) Additional Family Medical History / Comment(s): 7 OH and faulty heart valve. Pt does not know the age when mother had her OH's. Father History Unknown: Yes Additional Family Medical History / Comment(s): Does not know who father is. Brother(s) Family Medical History: Cancer, Congestive Heart Failure (CHF), Myocardial Infarction (OH) Additional Family Medical History / Comment(s): Parkinsons. Pt does not know at what age his brother had an OH. Patient's other brother has lung CA Patient has Family Medical History: No Reported History Additional Family Medical History / Comment(s): There is a strong family history for heart disease, hypertension, and diabetes. Medications and Allergies Home Medications Medication Instructions Recorded Confirmed Type Pantoprazole [Protonix] 40 mg PO DAILY 04/01/18 03/08/19 History Nitroglycerin Sl Tabs [Nitrostat] 0.4 mg SUBLINGUAL Q5M PRN 11/08/18 03/08/19 History Tamsulosin HCl [Flomax] 0.4 mg PO DAILY 11/08/18 03/08/19 History Apixaban [Eliquis] 5 mg PO BID 02/27/19 03/08/19 History Clopidogrel [Plavix] 75 mg PO DAILY 02/27/19 03/08/19 History Albuterol Sulfate [Ventolin HFA] 2 puff INHALATION RT-Q6H PRN 03/08/19 03/08/19 History Bumetanide [BUMEX] 2 mg PO DAILY 03/08/19 03/08/19 History Carvedilol [Coreg] 3.125 mg PO BID 03/08/19 03/08/19 History DULoxetine HCL [Cymbalta] 60 mg PO BID 03/08/19 03/08/19 History Gabapentin [Neurontin] 100 mg PO TID 03/08/19 03/08/19 History Insulin Glargine [Lantus] 30 units SQ HS 03/08/19 03/08/19 History Lisinopril [Zestril] 5 mg PO DAILY 03/08/19 03/08/19 History Methocarbamol [Robaxin] 500 mg PO QID 03/08/19 03/08/19 History Primidone [Mysoline] 100 mg PO BID 03/08/19 03/08/19 History Rosuvastatin [Crestor] 10 mg PO DAILY 03/08/19 03/08/19 History Spironolactone [Aldactone] 25 mg PO DAILY 03/08/19 03/08/19 History Allergies Allergy/AdvReac Type Severity Reaction Status Date / Time erythromycin base Allergy Severe Rash/Hives Verified 03/08/19 08:03 [Erythromycin Base] cephalexin monohydrate Allergy Unknown Rash/Hives Verified 03/08/19 08:03 [From Keflex] codeine Allergy Unknown Unknown Verified 03/08/19 08:03 meclizine Allergy Unknown Unknown Verified 03/08/19 08:03 Penicillins Allergy Unknown Rash/Hives Verified 03/08/19 08:03 shellfish derived Allergy Unknown Anaphylaxis Verified 03/08/19 08:03 adhesive tape Allergy Rash/Hives Verified 03/08/19 08:03 Fish Containing Products Allergy Anaphylaxis Verified 03/08/19 08:03 [Fish] Iodinated Contrast Media Allergy Anaphylaxis Verified 03/08/19 08:03 silver Allergy Rash/Hives Verified 03/08/19 08:03 [From Tegaderm AG Mesh] naproxen AdvReac Unknown Compromises Verified 03/08/19 08:03 Kidney Function atorvastatin calcium AdvReac Myalgia Verified 03/08/19 08:03 [From Lipitor] hydrocodone [From [place]] AdvReac Rapid Verified 03/08/19 08:03 Heart Rate Physical Exam Vitals: Vital Signs Temp Pulse Pulse Resp BP BP BP 03/12/19 12:00 97.8 F 80 19 102/83 03/12/19 11:00 78 19 109/79 03/12/19 10:00 77 19 87/61 03/12/19 09:30 77 15 103/84 03/12/19 09:00 75 16 91/61 03/12/19 08:30 71 15 95/61 03/12/19 08:00 97.6 F 80 19 94/71 03/12/19 07:00 77 20 106/79 03/12/19 06:00 73 16 90/64 03/12/19 05:00 73 14 90/67 03/12/19 04:00 97.6 F 76 20 105/90 03/12/19 03:00 70 20 102/73 03/12/19 02:00 70 19 83/60 03/12/19 01:00 69 20 79/58 03/12/19 00:00 97.7 F 68 19 79/57 03/11/19 22:00 79 18 03/11/19 20:00 97.5 F L 79 18 95/61 101/67 03/11/19 16:00 97.7 F 84 24 104/75 03/11/19 14:00 84 7 L 82/67 Pulse Ox 03/12/19 12:00 99 03/12/19 11:00 99 03/12/19 10:00 100 03/12/19 09:30 100 03/12/19 09:00 99 03/12/19 08:30 100 03/12/19 08:00 98 03/12/19 07:00 100 03/12/19 06:00 100 03/12/19 05:00 100 03/12/19 04:00 100 03/12/19 03:00 98 03/12/19 02:00 100 03/12/19 01:00 100 03/12/19 00:00 100 03/11/19 22:00 03/11/19 20:00 03/11/19 16:00 98 03/11/19 14:00 99 Intake and Output 03/11/19 03/12/19 03/12/19 22:59 06:59 14:59 Intake Total 350 100 240 Output Total 0 450 Balance 350 100 -210 Intake: IV 140 0.9 Sodium Chloride 140 Intake, IV Titration 100 100 Amount Aztreonam 2 gm In Sodium 100 100 Chloride 0.9% 100 ml @ 100 mls/hr IVPB Q8HR [facility] Rx#:[id number] Oral 350 Output: Urine 0 450 Other: Voiding Method Urinal Urinal # Voids 1 Weight 105.9 kg Gen. appearance, comfortable likely distress Head exam was generally normal. There was no scleral icterus or corneal arcus. Mucous membranes were moist. Neck was supple and without jugular venous distension, thyromegaly, or carotid bruits. Carotids were easily palpable bilaterally. There was no adenopathy. Lungs sounds are diminished and there is some bibasilar crackles. No wheezes or rhonchi. Heart sound regular with a systolic ejection murmur which is grade 3/6. No redness or heave or thrill. The patient is also an AICD in place. The ICD pocket is dry clean and intact. Pulses in the lower extremities are all diminished. Abdominal exam revealed normal bowel sounds. The abdomen was soft, non-tender, and without masses, organomegaly, or appreciable enlargement of the abdominal aorta. extremities revealed trace edema and there is no cyanosis or clubbing. Pulses are diminished. Examination of the skin revealed no evidence of significant rashes, suspicious appearing nevi or other concerning lesions. Neurologically moving all 4 extremities. Awake and alert. Following commands. psychiatric evaluation is consistent with severe depression. Results - Laboratory Findings CBC and BMP: 03/12/19 05:46 03/12/19 05:46 Abnormal lab findings: Abnormal Labs 03/08/19 03/08/19 03/08/19 03:42 04:36 05:42 WBC RBC 4.27 L Hgb 11.5 L Hct 36.6 L RDW 19.4 H Neutrophils # (Manual) Lymphocytes # 0.7 L Lymphocytes # (Manual) Sodium Potassium Chloride Carbon Dioxide BUN Creatinine Glucose POC Glucose (mg/dL) 267 H Hemoglobin A1c Calcium Alkaline Phosphatase Total Creatine Kinase Total Protein Urine Protein Trace H Urine Blood Small H Ur Leukocyte Esterase Large H Urine WBC >182 H Urine WBC Clumps Many H Urine Bacteria Many H 03/08/19 03/08/19 03/08/19 05:42 05:42 11:57 WBC RBC Hgb Hct RDW Neutrophils # (Manual) Lymphocytes # Lymphocytes # (Manual) Sodium 123 L Potassium Chloride 87 L Carbon Dioxide BUN 41 H Creatinine Glucose 274 H POC Glucose (mg/dL) 287 H Hemoglobin A1c Calcium Alkaline Phosphatase 230 H Total Creatine Kinase 48 L Total Protein 6.2 L Urine Protein Urine Blood Ur Leukocyte Esterase Urine WBC Urine WBC Clumps Urine Bacteria 03/08/19 03/08/19 03/08/19 12:13 16:21 17:58 WBC RBC Hgb Hct RDW Neutrophils # (Manual) Lymphocytes # Lymphocytes # (Manual) Sodium Potassium Chloride Carbon Dioxide BUN Creatinine Glucose POC Glucose (mg/dL) 222 H Hemoglobin A1c Calcium Alkaline Phosphatase Total Creatine Kinase 37 L 34 L Total Protein Urine Protein Urine Blood Ur Leukocyte Esterase Urine WBC Urine WBC Clumps Urine Bacteria 03/08/19 03/09/19 03/09/19 20:43 07:55 07:55 WBC RBC 3.95 L Hgb 10.8 L Hct 34.4 L RDW 19.3 H Neutrophils # (Manual) Lymphocytes # Lymphocytes # (Manual) Sodium 128 L Potassium Chloride 92 L Carbon Dioxide BUN 36 H Creatinine Glucose 102 H POC Glucose (mg/dL) 246 H Hemoglobin A1c Calcium Alkaline Phosphatase Total Creatine Kinase Total Protein Urine Protein Urine Blood Ur Leukocyte Esterase Urine WBC Urine WBC Clumps Urine Bacteria 03/09/19 03/09/19 03/09/19 10:50 11:38 17:58 WBC RBC Hgb Hct RDW Neutrophils # (Manual) Lymphocytes # Lymphocytes # (Manual) Sodium Potassium Chloride Carbon Dioxide BUN Creatinine Glucose POC Glucose (mg/dL) 102 H 109 H 134 H Hemoglobin A1c Calcium Alkaline Phosphatase Total Creatine Kinase Total Protein Urine Protein Urine Blood Ur Leukocyte Esterase Urine WBC Urine WBC Clumps Urine Bacteria 03/09/19 03/10/19 03/10/19 21:06 04:41 06:44 WBC RBC Hgb Hct RDW Neutrophils # (Manual) Lymphocytes # Lymphocytes # (Manual) Sodium 122 L Potassium Chloride 87 L Carbon Dioxide BUN 34 H Creatinine Glucose 231 H POC Glucose (mg/dL) 225 H 282 H Hemoglobin A1c Calcium Alkaline Phosphatase Total Creatine Kinase Total Protein Urine Protein Urine Blood Ur Leukocyte Esterase Urine WBC Urine WBC Clumps Urine Bacteria 03/10/19 03/10/19 03/10/19 11:50 13:21 14:55 WBC RBC Hgb Hct RDW Neutrophils # (Manual) Lymphocytes # Lymphocytes # (Manual) Sodium Potassium Chloride Carbon Dioxide BUN Creatinine Glucose POC Glucose (mg/dL) 183 H 248 H 280 H Hemoglobin A1c Calcium Alkaline Phosphatase Total Creatine Kinase Total Protein Urine Protein Urine Blood Ur Leukocyte Esterase Urine WBC Urine WBC Clumps Urine Bacteria 03/10/19 03/10/19 03/10/19 17:25 18:08 21:18 WBC RBC Hgb Hct RDW Neutrophils # (Manual) Lymphocytes # Lymphocytes # (Manual) Sodium Potassium Chloride Carbon Dioxide BUN Creatinine Glucose POC Glucose (mg/dL) 208 H 213 H 268 H Hemoglobin A1c Calcium Alkaline Phosphatase Total Creatine Kinase Total Protein Urine Protein Urine Blood Ur Leukocyte Esterase Urine WBC Urine WBC Clumps Urine Bacteria 03/10/19 03/11/19 03/11/19 23:44 08:16 09:31 WBC RBC 3.66 L Hgb 10.2 L Hct 31.5 L RDW 18.2 H Neutrophils # (Manual) Lymphocytes # Lymphocytes # (Manual) Sodium Potassium Chloride Carbon Dioxide BUN Creatinine Glucose POC Glucose (mg/dL) 231 H 187 H Hemoglobin A1c Calcium Alkaline Phosphatase Total Creatine Kinase Total Protein Urine Protein Urine Blood Ur Leukocyte Esterase Urine WBC Urine WBC Clumps Urine Bacteria 03/11/19 03/11/19 03/11/19 09:31 12:00 13:15 WBC RBC Hgb Hct RDW Neutrophils # (Manual) Lymphocytes # Lymphocytes # (Manual) Sodium 123 L Potassium Chloride 93 L Carbon Dioxide 21 L BUN 36 H Creatinine Glucose 203 H POC Glucose (mg/dL) 210 H 321 H Hemoglobin A1c Calcium 8.3 L Alkaline Phosphatase Total Creatine Kinase Total Protein Urine Protein Urine Blood Ur Leukocyte Esterase Urine WBC Urine WBC Clumps Urine Bacteria 03/11/19 03/11/19 03/11/19 16:31 16:56 20:31 WBC RBC Hgb Hct RDW Neutrophils # (Manual) Lymphocytes # Lymphocytes # (Manual) Sodium Potassium Chloride Carbon Dioxide BUN Creatinine Glucose POC Glucose (mg/dL) 283 H 201 H Hemoglobin A1c 7.0 H Calcium Alkaline Phosphatase Total Creatine Kinase Total Protein Urine Protein Urine Blood Ur Leukocyte Esterase Urine WBC Urine WBC Clumps Urine Bacteria 03/11/19 03/11/19 03/12/19 22:04 23:30 05:46 WBC RBC Hgb Hct RDW Neutrophils # (Manual) Lymphocytes # Lymphocytes # (Manual) Sodium 124 L Potassium 5.3 H Chloride 96 L Carbon Dioxide 17 L BUN 44 H Creatinine 1.33 H Glucose 158 H POC Glucose (mg/dL) 235 H 222 H Hemoglobin A1c Calcium 8.3 L Alkaline Phosphatase Total Creatine Kinase Total Protein Urine Protein Urine Blood Ur Leukocyte Esterase Urine WBC Urine WBC Clumps Urine Bacteria 03/12/19 03/12/19 03/12/19 05:46 06:56 12:05 WBC 11.4 H RBC 4.22 L Hgb 11.1 L Hct 35.6 L RDW 19.1 H Neutrophils # (Manual) 9.80 H Lymphocytes # Lymphocytes # (Manual) 0.80 L Sodium Potassium Chloride Carbon Dioxide BUN Creatinine Glucose POC Glucose (mg/dL) 202 H 208 H Hemoglobin A1c Calcium Alkaline Phosphatase Total Creatine Kinase Total Protein Urine Protein Urine Blood Ur Leukocyte Esterase Urine WBC Urine WBC Clumps Urine Bacteria - Diagnostic Findings Chest x-ray: image reviewed Assessment and Plan Plan: 1 severe depression with suicidal ideation currently on Cymbalta with a 24 hour sitter at the bedside. Psychiatric is on the case. 2 multivessel coronary artery disease with multiple coronary interventions and stenting. Based on cardiology evaluation from our hospital and [facility], no further interventions can be done from the cardiac standpoint. 3 ischemic cardiomyopathy status post AICD placement. 4 previous history of DVT and pulmonary embolism 5 History of CVA 6 chronic episodic chest pain 7 previous history of cardiac arrest 8 chronic hypotension 9 chronic hyponatremia 10 diabetes mellitus 11 hyperlipidemia 12 obstructive sleep apnea. 13 diabetic peripheral neuropathy 14 chronic ascites 15 degenerative disc disease 16 chronic back pain 17 gastroparesis 18 psoriasis 19 migraine 10 previous history of rotator cuff injury 21 peptic ulcer disease along with history of hiatal hernia. 22 chronic hyponatremia 23 acute kidney injury with a creatinine of 1.3 Plan Hold Lasix. Monitor renal function. Resume cardiac medications. Psychiatric follow-up.. We'll keep the patient in ICU for now.
--- NOTE | 2019-03-12 15:44 | PN ---
PROGRESS NOTE DATE OF SERVICE: 03/12/2019 HISTORY OF PRESENT ILLNESS: This 43-year-old gentleman who was admitted with multiple medical problems, including chest pain, has significant cardiomyopathy. The patient has been previously evaluated at [facility] and [facility]. Apparently [facility] cannot offer any other further modalities, and the [facility] actually refused the transfer recently because of concerns about patient's violent behavior which was documented in the [facility] charts, per the physician whom I talked to earlier this month. Last night the patient also had a brief period of unresponsiveness and absent pulses with a persistent rhythm which responded to a couple of chest compressions. The patient also is complaining of chest pain at this time. The patient is being closely monitored at this time. The patient also developed a UTI, too. The patient had suicidal ideations as well. The patient was started on a small dose of Lasix which resulted in some hypotension as well. Psychiatry and multiple consultants are following the patient closely. Brain CT is unremarkable. The patient had some numbness, which is improved at this time. Past medical history reviewed. REVIEW OF SYSTEMS: CARDIOVASCULAR SYSTEM: As mentioned earlier. RESPIRATORY SYSTEM: As mentioned earlier. GI: No nausea, vomiting. : No dysuria or retention. NERVOUS SYSTEM: No numbness, weakness. CURRENT MEDICATIONS: Reviewed. They include: 1. Tylenol 650 q.4 p.r.n. 2. Ventolin. 3. Eliquis 5 mg p.o. b.i.d. 4. Aztreonam 2 grams IV q.8. 5. Plavix 75 mg daily. 6. Cymbalta 60 mg p.o. b.i.d. 7. Dilaudid. 8. Levemir 30 units subcutaneously at bedtime. 9. Lopressor. 10.Narcan. 11.Nitrostat. 12.Crestor 10 mg p.o. daily. 13.Zofran. 14.Protonix 40 mg daily. 15.Mysoline 100 mg p.o. b.i.d. 16.Flomax 0.4 daily. 17.Ultram 50 mg q.6 p.r.n. PHYSICAL EXAMINATION: Patient is alert, oriented x3. Pulse 80, blood pressure 102/83, respiration 19, temperature 97.8, pulse ox 99% on room air. HEENT: Conjunctivae normal. Oral mucosa moist. NECK: No jugular venous distention. No carotid bruit. No lymph node enlargement. CARDIOVASCULAR SYSTEM: S1, S2 muffled. RESPIRATORY SYSTEM: Breath sounds diminished at the bases. A few scattered rhonchi and crackles. ABDOMEN: Soft, obese, non-tender. LEGS: Bilateral leg edema. NERVOUS SYSTEM: Diffusely weak. LABS: WBC 11.4, hemoglobin 11.1. Sodium 124, potassium 5.3. Creatinine is 1.33. ASSESSMENT: 1. Congestive heart failure, acute exacerbation, with acute on chronic systolic dysfunction, ejection fraction 20%, with possible cardiomyopathy. 2. Chest pain, unstable angina. 3. History of coronary artery disease with multiple stents in the past. 4. History of suicidal ideation. 5. Hyponatremia, possibly hypervolemic in nature. 6. Hypertension. 7. Hyperlipidemia. 8. History of diabetes mellitus, type 2. 9. Diabetic peripheral neuropathy. 10.Depression. 11.Atrial fibrillation, chronic, rate controlled. 12.Severe coronary artery disease and multiple stents. 13.History of deep venous thrombosis. 14.History of gastroesophageal reflux disease. 15.History of obesity and sleep apnea. 16.Anemia. 17.Mild hyperkalemia. 18.Renal failure, possibly mild acute renal failure with acute prerenal acute tubular necrosis. DISCUSSION AND RECOMMENDATIONS: In this 43-year-old gentleman who presented with multiple complex medical issues, we will monitor the patient closely, continue the current medications, continue symptomatic treatment. Otherwise, continue with medical treatment. Continue with IV antibiotics. The cultures are pending at this time. Closely follow with Cardiology. Monitor blood sugars closely. Resume the home medications. Overall prognosis is extremely guarded because of above-mentioned multiple medical issues. Further recommendations to follow. MMODL / IJN: [id number] /
[2019-03-12 17:22] LABS: Glucose,Whole Blood 207 mg/dL (75-99)
[2019-03-12] MEDS: INSULIN DETEMIR (LEVEMIR) 100 UNIT/ML SYR SQ SCH (20:30)
[2019-03-12 20:48] LABS: Glucose,Whole Blood 198 mg/dL (75-99)
--- NOTE | 2019-03-12 22:49 | P.PN ---
Subjective Progress Note Date: 03/12/19 43-year-old male who has multiple medical troubles which includes diabetes mellitus type 2 for nearly 19 years has been poorly controlled with multiple complications that includes coronary artery disease. Patient is related to have had recent hospitalizations with cardiopulmonary arrest. He has an AICD that is in place. We have requested the nursing staff have patient sign release of information from his recent hospitalizations to further assess the events during. He now presents with an acute depression event with suicidal ideation. He has also been seen by neurology because of concerns to numbness and tingling on the right side of his body. He has developed significant hyponatremia which is why he was brought into the intensive care unit. The patient is overwhelmed at 18th anniversary of his son's passing. Infectious disease consultation requested with concerns to urinary tract infection. The patient did have urinary incontinence in the emergency center. 03/12/2019 the patient is feeling poorly. He continues to have discomfort in his chest. He has shortness of breath. Is following with psychiatry regarding his depression and suicidal ideation. Discharged he was working on placement to a medical psychiatric bed. Objective - Vital Signs Vital signs: Vital Signs Temp 97.4 F L 03/12/19 20:00 Pulse 73 03/12/19 20:00 Resp 15 03/12/19 20:00 BP 98/73 03/12/19 19:00 Pulse Ox 97 03/12/19 20:00 Intake & Output 03/12/19 03/12/19 03/13/19 06:59 18:59 06:59 Intake Total 100 670 40 Output Total 0 600 200 Balance 100 70 -160 Weight 105.9 kg Intake: IV 200 40 0.9 Sodium Chloride 200 40 Intake, IV Titration 100 200 Amount Aztreonam 2 gm In Sodium 100 200 Chloride 0.9% 100 ml @ 100 mls/hr IVPB Q8HR [facility] Rx#:[id number] Oral 270 Output: Urine 0 600 200 Other: Voiding Method Urinal Urinal # Voids 1 - Exam 43-year-old male who looks considerably older than his stated age HEENT: Anicteric conjunctiva are pink and moist nasal mucosa grossly intact without significant lesions, there is no thrush. Dentition poor Neck: The neck is supple without significant lymphadenopathy or thyromegaly. Lungs: Basilar crackles Heart: Paced rhythm 2/6 systolic murmur left sternal border Abdomen: Positive bowel sounds soft and nontender without palpable masses or organomegaly. There was no guarding or rebound. Extremities: The upper extremities have excellent pulses they are symmetric, no significant petechiae or telangiectasia. No splinter hemorrhages were noted. Lower extremities have some generalized edema Neurologically patient is more interactive but still with depressed affect - Labs CBC & Chem 7: 03/12/19 05:46 03/12/19 05:46 Labs: Abnormal Lab Results - Last 24 Hours (Table) 03/11/19 03/11/19 03/12/19 Range/Units 16:31 23:30 05:46 WBC (3.8-10.6) k/uL RBC (4.30-5.90) m/uL Hgb (13.0-17.5) gm/dL Hct (39.0-53.0) % RDW (11.5-15.5) % Neutrophils # (Manual) (1.3-7.7) k/uL Lymphocytes # (Manual) (1.0-4.8) k/uL Sodium 124 L (137-145) mmol/L Potassium 5.3 H (3.5-5.1) mmol/L Chloride 96 L (98-107) mmol/L Carbon Dioxide 17 L (22-30) mmol/L BUN 44 H (9-20) mg/dL Creatinine 1.33 H (0.66-1.25) mg/dL Glucose 158 H (74-99) mg/dL POC Glucose (mg/dL) 222 H (75-99) mg/dL Hemoglobin A1c 7.0 H (4.0-6.0) % Calcium 8.3 L (8.4-10.2) mg/dL 03/12/19 03/12/19 03/12/19 Range/Units 05:46 06:56 12:05 WBC 11.4 H (3.8-10.6) k/uL RBC 4.22 L (4.30-5.90) m/uL Hgb 11.1 L (13.0-17.5) gm/dL Hct 35.6 L (39.0-53.0) % RDW 19.1 H (11.5-15.5) % Neutrophils # (Manual) 9.80 H (1.3-7.7) k/uL Lymphocytes # (Manual) 0.80 L (1.0-4.8) k/uL Sodium (137-145) mmol/L Potassium (3.5-5.1) mmol/L Chloride (98-107) mmol/L Carbon Dioxide (22-30) mmol/L BUN (9-20) mg/dL Creatinine (0.66-1.25) mg/dL Glucose (74-99) mg/dL POC Glucose (mg/dL) 202 H 208 H (75-99) mg/dL Hemoglobin A1c (4.0-6.0) % Calcium (8.4-10.2) mg/dL 03/12/19 03/12/19 Range/Units 16:59 20:37 WBC (3.8-10.6) k/uL RBC (4.30-5.90) m/uL Hgb (13.0-17.5) gm/dL Hct (39.0-53.0) % RDW (11.5-15.5) % Neutrophils # (Manual) (1.3-7.7) k/uL Lymphocytes # (Manual) (1.0-4.8) k/uL Sodium (137-145) mmol/L Potassium (3.5-5.1) mmol/L Chloride (98-107) mmol/L Carbon Dioxide (22-30) mmol/L BUN (9-20) mg/dL Creatinine (0.66-1.25) mg/dL Glucose (74-99) mg/dL POC Glucose (mg/dL) 207 H 198 H (75-99) mg/dL Hemoglobin A1c (4.0-6.0) % Calcium (8.4-10.2) mg/dL Laboratory Results WBC 11.4 k/uL (3.8-10.6) H 03/12/19 05:46 RBC 4.22 m/uL (4.30-5.90) L 03/12/19 05:46 Hgb 11.1 gm/dL (13.0-17.5) L 03/12/19 05:46 Hct 35.6 % (39.0-53.0) L 03/12/19 05:46 MCV 84.5 fL (80.0-100.0) 03/12/19 05:46 MCH 26.3 pg (25.0-35.0) 03/12/19 05:46 MCHC 31.1 g/dL (31.0-37.0) 03/12/19 05:46 RDW 19.1 % (11.5-15.5) H 03/12/19 05:46 Plt Count 333 k/uL (150-450) 03/12/19 05:46 Neutrophils % 70 % 03/11/19 09:31 Neutrophils % (Manual) 86 % 03/12/19 05:46 Lymphocytes % 18 % 03/11/19 09:31 Lymphocytes % (Manual) 7 % 03/12/19 05:46 Monocytes % 6 % 03/11/19 09:31 Monocytes % (Manual) 7 % 03/12/19 05:46 Eosinophils % 1 % 03/11/19 09:31 Basophils % 1 % 03/11/19 09:31 Neutrophils # 3.8 k/uL (1.3-7.7) 03/11/19 09:31 Neutrophils # (Manual) 9.80 k/uL (1.3-7.7) H 03/12/19 05:46 Lymphocytes # 1.0 k/uL (1.0-4.8) 03/11/19 09:31 Lymphocytes # (Manual) 0.80 k/uL (1.0-4.8) L 03/12/19 05:46 Monocytes # 0.3 k/uL (0-1.0) 03/11/19 09:31 Monocytes # (Manual) 0.80 k/uL (0-1.0) 03/12/19 05:46 Eosinophils # 0.1 k/uL (0-0.7) 03/11/19 09:31 Basophils # 0.1 k/uL (0-0.2) 03/11/19 09:31 Nucleated RBCs 0 /100 WBC (0-0) 03/12/19 05:46 Manual Slide Review Performed 03/12/19 05:46 Hypochromasia Slight 03/12/19 05:46 Anisocytosis Slight 03/12/19 05:46 Microcytosis Slight 03/12/19 05:46 Sodium 124 mmol/L (137-145) L 03/12/19 05:46 Potassium 5.3 mmol/L (3.5-5.1) H 03/12/19 05:46 Chloride 96 mmol/L (98-107) L 03/12/19 05:46 Carbon Dioxide 17 mmol/L (22-30) L 03/12/19 05:46 Anion Gap 11 mmol/L 03/12/19 05:46 BUN 44 mg/dL (9-20) H 03/12/19 05:46 Creatinine 1.33 mg/dL (0.66-1.25) H 03/12/19 05:46 Est GFR (CKD-EPI)AfAm 76 (>60 ml/min/1.73 sqM) 03/12/19 05:46 Est GFR (CKD-EPI)NonAf 65 (>60 ml/min/1.73 sqM) 03/12/19 05:46 Glucose 158 mg/dL (74-99) H 03/12/19 05:46 POC Glucose (mg/dL) 198 mg/dL (75-99) H 03/12/19 20:37 POC Glu Revenue Inspector ID Ofelia Poole 03/12/19 20:[address] Glu mg/dL 154 03/11/19 16:31 Hemoglobin A1c 7.0 % (4.0-6.0) H 03/11/19 16:31 Plasma Lactic Acid [place] 1.8 mmol/L (0.7-2.0) 03/11/19 14:06 Calcium 8.3 mg/dL (8.4-10.2) L 03/12/19 05:46 Total Bilirubin 0.8 mg/dL (0.2-1.3) 03/08/19 05:42 AST 27 U/L (17-59) 03/08/19 05:42 ALT 35 U/L (21-72) 03/08/19 05:42 Alkaline Phosphatase 230 U/L (38-126) H 03/08/19 05:42 Total Creatine Kinase 34 U/L (55-170) L 03/08/19 17:58 CK-MB (CK-2) 1.3 ng/mL (0.0-2.4) 03/08/19 17:58 CK-MB (CK-2) Rel Index 3.8 03/08/19 17:58 Troponin I 0.016 ng/mL (0.000-0.034) 03/10/19 19:01 Total Protein 6.2 g/dL (6.3-8.2) L 03/08/19 05:42 Albumin 3.5 g/dL (3.5-5.0) 03/08/19 05:42 Urine Color Yellow 03/08/19 04:36 Urine Appearance Cloudy (Clear) 03/08/19 04:36 Urine pH 5.0 (5.0-8.0) 03/08/19 04:36 Ur Specific [place] 1.013 (1.001-1.035) 03/08/19 04:36 Urine Protein Trace (Negative) H 03/08/19 04:36 Urine Glucose (UA) Negative (Negative) 03/08/19 04:36 Urine Ketones Negative (Negative) 03/08/19 04:36 Urine Blood Small (Negative) H 03/08/19 04:36 Urine Nitrite Negative (Negative) 03/08/19 04:36 Urine Bilirubin Negative (Negative) 03/08/19 04:36 Urine Urobilinogen <2.0 mg/dL (<2.0) 03/08/19 04:36 Ur Leukocyte Esterase Large (Negative) H 03/08/19 04:36 Urine WBC >182 /hpf (0-5) H 03/08/19 04:36 Urine WBC Clumps Many /hpf (None) H 03/08/19 04:36 Urine Bacteria Many /hpf (None) H 03/08/19 04:36 Urine Opiates Screen Not Detected (NotDetected) 03/08/19 04:36 Ur Oxycodone Screen Not Detected (NotDetected) 03/08/19 04:36 Urine Methadone Screen Not Detected (NotDetected) 03/08/19 04:36 Ur Propoxyphene Screen Not Detected (NotDetected) 03/08/19 04:36 Ur Barbiturates Screen Not Detected (NotDetected) 03/08/19 04:36 U Tricyclic Antidepress Not Detected (NotDetected) 03/08/19 04:36 Ur Phencyclidine Scrn Not Detected (NotDetected) 03/08/19 04:36 Ur Amphetamines Screen Not Detected (NotDetected) 03/08/19 04:36 U Methamphetamines Scrn Not Detected (NotDetected) 03/08/19 04:36 U Benzodiazepines Scrn Not Detected (NotDetected) 03/08/19 04:36 Urine Cocaine Screen Not Detected (NotDetected) 03/08/19 04:36 U Marijuana (THC) Screen Not Detected (NotDetected) 03/08/19 04:36 Assessment and Plan (1) AICD (automatic cardioverter/defibrillator) present Current Visit: No Status: Acute Code(s): Z95.810 - PRESENCE OF AUTOMATIC (IMPLANTABLE) CARDIAC DEFIBRILLATOR SNOMED Code(s): 585883797 (2) Suicidal ideation Current Visit: No Status: Acute Priority: High Code(s): R45.851 - SUICIDAL IDEATIONS SNOMED Code(s): 8795664 (3) Systolic CHF, acute on chronic Current Visit: No Status: Acute Code(s): I50.23 - ACUTE ON CHRONIC SYSTOLIC (CONGESTIVE) HEART FAILURE SNOMED Code(s): 491984328 (4) Bacteriuria with pyuria Narrative/Plan: 43-year-old male with a very complex past medical history with multiple hospitalizations with notation of cardiopulmonary arrest and AICD has been plac ed. Presents to our facility with suicidal ideation. Initial workup reveals evidence of urinalysis that is quite abnormal with greater than 182 white blood cells many bacteria being seen. Urine culture is to be sent. Blood culture is pending. The white count is normal and he is not having fever. With his uncontrolled diabetes is under by single A1c of 9.8 on the last check urinary infection of concern. He has many ALLERGIES as noted and consequently azactam has been initiated. Possible further help direct her course of antibiotic therapy and we'll de-escalate as possible. 03/12/2019 the patient is a bit more interactive than yesterday. Cultures are process. Does have evidence of a gram-negative urinary tract infection and Azactam is being utilized for now with his multiple ALLERGIES. Is tolerating this well. Today without fever or chills. Blood glucoses are improved today. Await a medical psychiatric bed when available. Current Visit: Yes Status: Acute Code(s): R82.71 - BACTERIURIA; R82.81 - SNOMED Code(s): 276529809
[2019-03-13] MEDS: HYDROmorphone 0.5 MG/0.5 ML SYRINGE IVP PRN ×4 (02:53→21:33)
[2019-03-13 06:25] LABS: Albumin 3.3 g/dL (3.5-5.0); Calcium 8.6 mg/dL (8.4-10.2); Total Bilirubin 0.7 mg/dL (0.2-1.3); Total Protein 6.1 g/dL (6.3-8.2)
[2019-03-13 06:26] LABS: Anisocytosis Slight; Basophils # (A) 0.1 k/uL (0-0.2); Basophils % (A) 1 %; Eosinophils # (A) 0.1 k/uL (0-0.7); Eosinophils % (A) 1 %; HCT 34.7 % (39.0-53.0); HGB 11.4 gm/dL (13.0-17.5); Hypochromasia Slight; Lymphocytes # (A) 1.3 k/uL (1.0-4.8); Lymphocytes % (A) 11 %; MCH 27.4 pg (25.0-35.0); MCHC 32.9 g/dL (31.0-37.0); MCV 83.3 fL (80.0-100.0); Mean Platelet Volume 6.9; Microcytosis Slight; Monocytes # (A) 0.5 k/uL (0-1.0); Monocytes % (A) 5 %; Neutrophils # (A) 9.3 k/uL (1.3-7.7); Neutrophils % (A) 81 %; Platelet Count 383 k/uL (150-450); Poikilocytosis Slight; RBC 4.17 m/uL (4.30-5.90); WBC 11.5 k/uL (3.8-10.6)
[2019-03-13] MEDS: INSULIN ASPART (NovoLOG) 100 UNIT/ML VIAL SQ SCH ×4 (07:05→21:36)
[2019-03-13] MEDS: PANTOPRAZOLE 40 MG TABLET PO SCH (07:06)
[2019-03-13 07:15] LABS: Glucose,Whole Blood 117 mg/dL (75-99)
[2019-03-13] MEDS: NON FORMULARY DRUG (Rosuvastatin 10 MG) PO SCH (08:10)
[2019-03-13] MEDS: GABAPENTIN 100 MG CAP PO SCH ×3 (08:47→21:36)
[2019-03-13] MEDS: METOPROLOL TARTRATE 25 MG TAB PO SCH ×2 (08:47→21:36)
[2019-03-13] MEDS: APIXABAN 5 MG TAB PO SCH ×2 (08:47→21:36)
[2019-03-13] MEDS: CLOPIDOGREL 75 MG TAB PO SCH (08:47)
[2019-03-13] MEDS: DULoxetine HCL 60 MG CAPSULE.DR PO SCH ×2 (08:47→21:36)
[2019-03-13] MEDS: AZTREONAM 2 GM in SODIUM CHLORIDE 0.9% 100 ML IVPB SCH ×4 (08:47→23:03)
[2019-03-13] MEDS: TAMSULOSIN 0.4 MG CAP.ER.24H PO SCH (08:47)
[2019-03-13] MEDS: PRIMIDONE 50 MG TAB PO SCH ×2 (08:47→21:44)
--- NOTE | 2019-03-13 10:35 | P.PN ---
Subjective Progress Note Date: 03/13/19 On 03/13/2019 I'm seeing this patient in follow-up in the intensive care unit. He is laying down comfortably in bed. He is hemodynamically stable. He is afebrile. He is on aztreonam regarding the possibility of an underlying UTI. He is chronically hyponatremic. Creatinine is at 1.2 which is improved compared to yesterday as I discontinued the patient's Lasix. The patient is in the ICU and he has a sitter at the bedside. He did have some suicidal ideations earlier regarding his severe depression. Today tells that he is feeling better. Psychiatry wanted to go to a medical psychiatric unit. I do not think he will be cleared to go to our psychiatric unit here in hospital as the patient has extensive medical history. I will suggest for the psychiatrist to do treatment here in the ICU while he is being treated for his medical problems at the same time. He is on Cymbalta 60 mg by mouth twice a day. His blood sugars are being monitored and they're adequately controlled. He is tolerating his diet. He is adequate urine output. No other significant events overnight otherwise. Objective - Vital Signs Vital signs: Vital Signs Temp 97 F L 03/13/19 04:00 Pulse 75 03/13/19 10:00 Resp 14 03/13/19 10:00 BP 100/73 03/13/19 10:00 Pulse Ox 95 03/13/19 07:00 Intake & Output 03/12/19 03/13/19 03/13/19 18:59 06:59 18:59 Intake Total 670 250 10 Output Total 600 400 Balance 70 -150 10 Weight 104.8 kg Intake: IV 200 150 10 0.9 Sodium Chloride 200 150 10 Intake, IV Titration 200 100 Amount Aztreonam 2 gm In Sodium 200 100 Chloride 0.9% 100 ml @ 100 mls/hr IVPB Q8HR [facility] Rx#:[id number] Oral 270 Output: Urine 600 400 Other: Voiding Method Urinal Urinal Urinal # Voids 1 - Exam Gen. appearance, comfortable likely distress Head exam was generally normal. There was no scleral icterus or corneal arcus. Mucous membranes were moist. Neck was supple and without jugular venous distension, thyromegaly, or carotid bruits. Carotids were easily palpable bilaterally. There was no adenopathy. Lungs sounds are diminished and there is some bibasilar crackles. No wheezes or rhonchi. Heart sound regular with a systolic ejection murmur which is grade 3/6. No redness or heave or thrill. The patient is also an AICD in place. The ICD pocket is dry clean and intact. Pulses in the lower extremities are all diminished. Abdominal exam revealed normal bowel sounds. The abdomen was soft, non-tender, and without masses, organomegaly, or appreciable enlargement of the abdominal aorta. extremities revealed trace edema and there is no cyanosis or clubbing. Pulses are diminished. Examination of the skin revealed no evidence of significant rashes, suspicious appearing nevi or other concerning lesions. Neurologically moving all 4 extremities. Awake and alert. Following commands. psychiatric evaluation is consistent with severe depression. - Labs CBC & Chem 7: 03/13/19 05:29 03/13/19 05:29 Labs: Abnormal Lab Results - Last 24 Hours (Table) 03/12/19 03/12/19 03/12/19 Range/Units 12:05 16:59 20:37 WBC (3.8-10.6) k/uL RBC (4.30-5.90) m/uL Hgb (13.0-17.5) gm/dL Hct (39.0-53.0) % RDW (11.5-15.5) % Neutrophils # (1.3-7.7) k/uL Sodium (137-145) mmol/L Chloride (98-107) mmol/L Carbon Dioxide (22-30) mmol/L BUN (9-20) mg/dL Creatinine (0.66-1.25) mg/dL Glucose (74-99) mg/dL POC Glucose (mg/dL) 208 H 207 H 198 H (75-99) mg/dL Alkaline Phosphatase (38-126) U/L Total Protein (6.3-8.2) g/dL Albumin (3.5-5.0) g/dL 03/13/19 03/13/19 03/13/19 Range/Units 05:29 05:29 07:03 WBC 11.5 H (3.8-10.6) k/uL RBC 4.17 L (4.30-5.90) m/uL Hgb 11.4 L (13.0-17.5) gm/dL Hct 34.7 L (39.0-53.0) % RDW 19.0 H (11.5-15.5) % Neutrophils # 9.3 H (1.3-7.7) k/uL Sodium 123 L (137-145) mmol/L Chloride 96 L (98-107) mmol/L Carbon Dioxide 16 L (22-30) mmol/L BUN 51 H (9-20) mg/dL Creatinine 1.28 H (0.66-1.25) mg/dL Glucose 107 H (74-99) mg/dL POC Glucose (mg/dL) 117 H (75-99) mg/dL Alkaline Phosphatase 166 H (38-126) U/L Total Protein 6.1 L (6.3-8.2) g/dL Albumin 3.3 L (3.5-5.0) g/dL Assessment and Plan Plan: 1 severe depression with suicidal ideation currently on Cymbalta with a 24 hour sitter at the bedside. Psychiatric is on the case. 2 multivessel coronary artery disease with multiple coronary interventions and stenting. Based on cardiology evaluation from our hospital and [facility], no further interventions can be done from the cardiac standpoint. 3 ischemic cardiomyopathy status post AICD placement. 4 previous history of DVT and pulmonary embolism 5 History of CVA 6 chronic episodic chest pain 7 previous history of cardiac arrest 8 chronic hypotension 9 chronic hyponatremia 10 diabetes mellitus 11 hyperlipidemia 12 obstructive sleep apnea. 13 diabetic peripheral neuropathy 14 chronic ascites 15 degenerative disc disease 16 chronic back pain 17 gastroparesis 18 psoriasis 19 migraine 10 previous history of rotator cuff injury 21 peptic ulcer disease along with history of hiatal hernia. 22 chronic hyponatremia 23 acute kidney injury with a creatinine of 1.3 Plan Keep the Lasix on hold. Continue IV aztreonam. Continue rest of the cardiac medications. History of any chest pain. Cultures still pending for now. There are still in progress. Will suggest a psychiatric to do treatment here and we will see if there is any modifications psychiatric medications other than Cymbalta regarding his depression. He is a 24 hour sitter at the bedside.
[2019-03-13 11:49] LABS: Glucose,Whole Blood 150 mg/dL (75-99)
--- NOTE | 2019-03-13 14:20 | P.PN ---
Progress Note - Text Progress Note Date: 03/13/19 Interval History: Patient was seen today for psychiatric follow-up with regards to patient's dep ression and suicidal ideations. Patient continues to be in the ICU and continues to have extensive medical history and comorbidities. Patient appeared to be watching TV and was agreeable to speak to display card writer. He states that he is continuing to feel depressed with passive suicidal ideations no plan. He states the he still thinking about his stressors at home and his medical problems. Patient also admitted to ongoing anxiety at times. He states that he did have better results with Abilify along with his Cymbalta and was agreeable to restart on that. He states that his sleep is improving mildly at this time and has fair appetite. At this time patient denies any homical ideations, intent or plan. Patient denies any auditory, visual hallucinations and denies any paranoia or delusions. Patient denies any side effects from the medications and has been compliant with meds. Mental Status Exam: General Appearance: Patient appears to be older than stated age, appears ill, is alert, attempts to cooperate. Patient has poor hygiene and poor grooming. Behavior: Patient is calmly lying in bed without any agitated behavior. Speech: Patient's speech is fluent and nonpressured. Mood/Affect: Patient reports their mood is "depressed", affect is congruent Suicidality/Homicidality: Admits to suicidal ideations with no specific plan Perceptions: Denies any auditory or visual hallucinations. Though content/process: There is no evidence of any delusional thought content and thought process is linear and goal-directed. Memory and concentration: AOX3, grossly intact for the purposes of this session. Can spell "WORLD" backwards Judgment and insight: Poor, improving mildly. Assessment Major depressive disorder, recurrent, moderate-severe Anxiety disorder unspecified PLAN: -Would recommend the following medication changes/additions: Can continue with Cymbalta 60 mg twice a day for depression. Will start Abilify 2.5 mg daily for mood adjunct. -Continue 1:1 sitter for safety -Cannot leave AMA at this time. Patient will need a petition and certification if attempting to leave AMA. -Continue with medical-psychiatric admission and social work to continue with transfer to a medical psychiatric unit.
[2019-03-13] MEDS: ARIPiprazole 5 MG TAB PO SCH (15:29)
[2019-03-13 16:46] LABS: Glucose,Whole Blood 163 mg/dL (75-99)
--- NOTE | 2019-03-13 19:05 | PN ---
PROGRESS NOTE DATE OF SERVICE: 03/13/2019 This 43-year-old gentleman with a past medical history of multiple medical problems was admitted with significant features of CHF. The patient also had continued chest pain indicating unstable angina. The patient also had CAD with multiple stents in the past. Patient also has multiple psychiatric problems including noncompliance, suicidal ideations. The patient is also in the past apparently threatened [facility] employees and they refused previous transfer and [facility] was not offering any more treatment, does not have anything more to offer him per the patient. Multiple consultants are following the patient including Neurology and the patient is also on empiric antibiotics, but the cultures are negative so far at this time. Patient being closely monitored. Creatinine is 1.28. PAST MEDICAL HISTORY: Reviewed. REVIEW OF SYSTEMS: CARDIOVASCULAR: as mentioned earlier. RESPIRATORY: As mentioned earlier. GI no nausea or vomiting. mentioned earlier. NERVOUS SYSTEM: No numbness or weakness. CURRENT MEDICATIONS: Reviewed and include: 1. Tylenol p.r.n. 2. Ventolin p.r.n. 3. Eliquis 5 mg p.o. b.i.d. 4. Mestinon 2 g IV q.8h. 5. Plavix 75 mg p.o. daily. 6. Cymbalta 60 mg p.o. b.i.d. 7. Neurontin 100 mg p.o. b.i.d. 8. Dilaudid p.r.n. 9. NovoLog scale. 10.Levemir. 11.Lopressor. 12.Narcan. 13.Nitrostat. 14. . 15.Protonix. 16.Mysoline. 17.Flomax. 18.Ultram. PHYSICAL EXAM: Patient is alert, oriented x2. Pulse 78, blood pressure is 113/70, respiration 11, temperature normal, pulse ox 98% on room air. HEENT: Conjunctivae normal. Oral mucosa moist. NECK is no jugular venous distention. No carotid bruit. No lymph node enlargement. Cardiovascular system: S1, S2. No S3, no S4. Ejection systolic murmur present. RESPIRATORY: Breath sounds diminished in the bases. A few scattered rhonchi and crackles. ABDOMEN: Soft, obese. LEGS: Bilateral leg edema. NERVOUS SYSTEM: Higher functions as mentioned earlier. Moves all 4 limbs. No focal motor or sensory deficits. LYMPHATICS: No lymph nodes palpable in the neck, axillae or groin. SKIN no ulcers, no rashes and no bleeding. JOINTS: No active deforming arthropathy. LABS: At this time shows WBC 11.5, hemoglobin 11.4, sodium 123 and creatinine is 1.28. ASSESSMENT: 1. Congestive heart failure acute exacerbation with acute on chronic systolic dysfunction. Ejection fraction 20% with possible cardiomyopathy. 2. Chest pain, unstable angina. 3. History of coronary artery disease with multiple stents in the past. 4. History of suicidal ideation. 5. Hyponatremia possibly hypovolemic in nature. 6. Hypertension. 7. Hyperlipidemia. 8. History of diabetes type 2. 9. History of diabetic peripheral neuropathy. 10.Depression. 11.Atrial fibrillation, chronic, rate controlled with severe coronary disease with multiple stents. 12.History of deep vein thrombosis. 13.History of gastroesophageal reflux disease. 14.History of obesity. 15.Sleep apnea. 16.History of anemia. 17.Mild hyperkalemia. 18.Renal failure possibly mild acute renal failure with acute prerenal acute tubular necrosis. RECOMMENDATIONS AND DISCUSSION: This 43-year-old gentleman who was admitted with multiple medical issues, we will monitor the patient closely. We will optimize medical treatment as mentioned earlier. The patient has very limited options at this time because of the above mentioned medical psychological issues. We will continue to monitor. I have again discussed the diagnosis and prognosis implications at length with and the patient at the bedside. At this time, they are open to considering NO CODE, NO CPR, NO VENT or PALLIATIVE CARE. Once again, the prognosis is extremely guarded. Further recommendations to follow. MMODL / IJN: [id number] /
[2019-03-13] MEDS: INSULIN DETEMIR (LEVEMIR) 100 UNIT/ML SYR SQ SCH (21:44)
[2019-03-13 21:54] LABS: Glucose,Whole Blood 165 mg/dL (75-99)
[2019-03-14] MEDS: HYDROmorphone 0.5 MG/0.5 ML SYRINGE IVP PRN ×4 (03:50→22:06)
[2019-03-14] MEDS: ONDANSETRON 4 MG/2 ML VIAL IVP PRN (05:38)
[2019-03-14 06:11] LABS: Appearance,Urine Clear (Clear); Bilirubin,Urine Negative (Negative); Blood,Urine Trace (Negative); Color,Urine Yellow; Glucose,Urine (UA) Negative (Negative); Hyaline Casts,Urine 42 /lpf (0-2); Ketones,Urine Trace (Negative); Leukocyte Esterase,Urine Small (Negative); Mucus,Urine Occasional /hpf; Nitrite,Urine Negative (Negative); PH, Urine 5.5 (5.0-8.0); Protein,Urine Trace (Negative); RBC,Urine 4 /hpf (0-5); Specific Gravity,Urine 1.022 (1.001-1.035); Squamous Epithelial Cell,Urine 1 /hpf (0-4); Urobilinogen,Urine <2.0 mg/dL (<2.0)
[2019-03-14] MEDS: INSULIN ASPART (NovoLOG) 100 UNIT/ML VIAL SQ SCH ×4 (06:42→20:28)
[2019-03-14] MEDS: PANTOPRAZOLE 40 MG TABLET PO SCH (06:45)
[2019-03-14 06:51] LABS: Glucose,Whole Blood 123 mg/dL (75-99)
[2019-03-14 09:29] LABS: Anisocytosis Slight; Basophils # (A) 0.2 k/uL (0-0.2); Basophils % (A) 2 %; Eosinophils # (A) 0.1 k/uL (0-0.7); Eosinophils % (A) 1 %; HCT 40.5 % (39.0-53.0); HGB 12.5 gm/dL (13.0-17.5); Hypochromasia Marked; Lymphocytes # (A) 1.1 k/uL (1.0-4.8); Lymphocytes % (A) 9 %; MCH 27.5 pg (25.0-35.0); Mean Platelet Volume 6.5; Monocytes # (A) 0.8 k/uL (0-1.0); Monocytes % (A) 7 %; Neutrophils # (A) 9.7 k/uL (1.3-7.7); Neutrophils % (A) 80 %; Platelet Count 447 k/uL (150-450); RBC 4.56 m/uL (4.30-5.90); RDW 18.8 % (11.5-15.5); WBC 12.2 k/uL (3.8-10.6)
[2019-03-14] MEDS: APIXABAN 5 MG TAB PO SCH ×2 (09:30→20:34)
[2019-03-14] MEDS: CLOPIDOGREL 75 MG TAB PO SCH (09:31)
[2019-03-14] MEDS: METOPROLOL TARTRATE 25 MG TAB PO SCH ×2 (09:31→20:34)
[2019-03-14] MEDS: ARIPiprazole 5 MG TAB PO SCH (09:31)
[2019-03-14] MEDS: GABAPENTIN 100 MG CAP PO SCH ×3 (09:31→20:34)
[2019-03-14] MEDS: DULoxetine HCL 60 MG CAPSULE.DR PO SCH ×2 (09:31→20:34)
[2019-03-14] MEDS: PRIMIDONE 50 MG TAB PO SCH ×2 (09:31→20:35)
[2019-03-14] MEDS: NON FORMULARY DRUG (Rosuvastatin 10 MG) PO SCH (09:32)
[2019-03-14] MEDS: TAMSULOSIN 0.4 MG CAP.ER.24H PO SCH (09:32)
[2019-03-14] MEDS: AZTREONAM 2 GM in SODIUM CHLORIDE 0.9% 100 ML IVPB SCH ×3 (09:36→23:20)
[2019-03-14 09:40] LABS: Albumin 3.3 g/dL (3.5-5.0); Calcium 8.8 mg/dL (8.4-10.2); Potassium 5.5 mmol/L (3.5-5.1); Total Bilirubin 0.7 mg/dL (0.2-1.3); Total Protein 5.8 g/dL (6.3-8.2)
[2019-03-14 09:43] LABS: MCV 88.9 fL (80.0-100.0)
--- NOTE | 2019-03-14 10:27 | P.NPCON ---
History of Present Illness - Reason for Consult hyponatremia - History of Present Illness Reason for consultation: Hyponatremia History of present illness: Patient is a 43-year-old male seen in consultation for hyponatremia. Patient's sodium level has been dropping over the last few days. It was 122 this morning. Patient does admit to drinking quite a bit of water. He is currently not on any diuretics. Denies edema. He has been voiding. No hematuria or dysuria. Patient states he vomited once this morning. No diarrhea. Patient states she was diagnosed with diabetes nearly 20 years ago. He presented to the hospital with suicidal ideations and depression. Patient has significant history of coronary artery disease status post multiple stents. Patient's ejection fraction is 20-25%. He also hasmoderate tricuspid regurgitation and pulmonary hypertension.he denies family history of renal disease. Patient's creatinine peaked at 1.33 this admission and is 1.18 today. He is also noted to be acidotic with a bicarbonate level of 15 today. Vital signs are stable. General: The patient appeared well nourished and normally developed. HEENT: Head exam is unremarkable. Neck is without jugular venous distension. LUNGS: Lungs are clear to auscultation and percussion. Breath sounds decreased. HEART: Rate and Rhythm are regular. First and second heart sounds normal. No murmurs, rubs or gallops. ABDOMEN: Abdominal exam reveals normal bowel sounds. Non-tender and non- distended. No evidence of peritonitis. EXTREMITITES: No clubbing, cyanosis, or edema. Past Medical History Past Medical History: Asthma, Coronary Artery Disease (CAD), Chest Pain / Angina, Heart Failure, CVA/TIA, Diabetes Mellitus, Deep Vein Thrombosis (DVT), GERD/Reflux, Hyperlipidemia, Hypertension, Myocardial Infarction (MS), Osteoarthritis (OA), Pneumonia, Skin Disorder, Sleep Apnea/CPAP/BIPAP Additional Past Medical History / Comment(s): multiple vessel CAD, ischemic cardiomyopathy, diabetic neuropathy bilateral hands and feet, hypertensive card iovascular disease, SHELIA with no device, chronic gastritis, degenerative disc disease, chronic back pain, depression with hx of suicide attempts, gastroparesis, psoriasis, UTI, migraines, TIA, PUD, hiatal hernia, L rotator cuff tear, bronchitis, pseudoaneurysm L groin post procedure. 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 Last Myocardial Infarction Date:: October 2017 History of Any Multi-Drug Resistant Organisms: MRSA Date of last positivie culture/infection: 11/05/17 (Culture done at [facility]) MDRO Source:: legs Past Surgical History: AICD, Appendectomy, Cholecystectomy, Heart Catheterization With Stent, Hernia Repair Additional Past Surgical History / Comment(s): Pt has had multiple cardiac procedures- caths/stents/PTCA, last stent placed at [facility] -October2017, SAVANNAH, R inguinal hernia repair, umbilical hernia repair, right orchiectomy due to necrosis, right hand surgery r/t injury, colonoscopy, cystoscopy (scraped bladde r parrish), stents 10/2017, cautarize right lung, Past Anesthesia/Blood Transfusion Reactions: No Reported Reaction Additional Past Anesthesia/Blood Transfusion Reaction / Comment(s): . Date of Last Stent Placement:: 10/2018 Type of Cardiac Device: Biventricular Pacemaker, AICD Device Placement Date:: 09/19/15 Past Psychological History: Anxiety, Depression, PTSD Additional Psychological History / Comment(s): Several suicide attempts with use of insulin. PTSD - in 2000 his 3mo old son in his arms (born 2 months nahid ture). He has a walker at home if needed. He drives.pt has 2 adult stepchildren at home with him most of the time. Spouse manages his medications. Smoking Status: Never smoker Past Alcohol Use History: None Reported Additional Past Alcohol Use History / Comment(s): Past alcohol abuse - pt states he quit drinking over 8yrs ago. Past Drug Use History: None Reported Additional Drug Use History / Comment(s): Pt has smoked marijuana in the past - last smoked in 1999. - Past Family History Mother Family Medical History: Coronary Artery Disease (CAD), Myocardial Infarction (MS) Additional Family Medical History / Comment(s): 7 MS and faulty heart valve. Pt does not know the age when mother had her MS's. Father History Unknown: Yes Additional Family Medical History / Comment(s): Does not know who father is. Brother(s) Family Medical History: Cancer, Congestive Heart Failure (CHF), Myocardial Infarction (MS) Additional Family Medical History / Comment(s): Parkinsons. Pt does not know at what age his brother had an MS. Patient's other brother has lung CA Patient has Family Medical History: No Reported History Additional Family Medical History / Comment(s): There is a strong family history for heart disease, hypertension, and diabetes. Medications and Allergies Home Medications Medication Instructions Recorded Confirmed Type Pantoprazole [Protonix] 40 mg PO DAILY 04/01/18 03/08/19 History Nitroglycerin Sl Tabs [Nitrostat] 0.4 mg SUBLINGUAL Q5M PRN 11/08/18 03/08/19 History Tamsulosin HCl [Flomax] 0.4 mg PO DAILY 11/08/18 03/08/19 History Apixaban [Eliquis] 5 mg PO BID 02/27/19 03/08/19 History Clopidogrel [Plavix] 75 mg PO DAILY 02/27/19 03/08/19 History Albuterol Sulfate [Ventolin HFA] 2 puff INHALATION RT-Q6H PRN 03/08/19 03/08/19 History Bumetanide [BUMEX] 2 mg PO DAILY 03/08/19 03/08/19 History Carvedilol [Coreg] 3.125 mg PO BID 03/08/19 03/08/19 History DULoxetine HCL [Cymbalta] 60 mg PO BID 03/08/19 03/08/19 History Gabapentin [Neurontin] 100 mg PO TID 03/08/19 03/08/19 History Insulin Glargine [Lantus] 30 units SQ HS 03/08/19 03/08/19 History Lisinopril [Zestril] 5 mg PO DAILY 03/08/19 03/08/19 History Methocarbamol [Robaxin] 500 mg PO QID 03/08/19 03/08/19 History Primidone [Mysoline] 100 mg PO BID 03/08/19 03/08/19 History Rosuvastatin [Crestor] 10 mg PO DAILY 03/08/19 03/08/19 History Spironolactone [Aldactone] 25 mg PO DAILY 03/08/19 03/08/19 History Allergies Allergy/AdvReac Type Severity Reaction Status Date / Time erythromycin base Allergy Severe Rash/Hives Verified 03/08/19 08:03 [Erythromycin Base] cephalexin monohydrate Allergy Unknown Rash/Hives Verified 03/08/19 08:03 [From Keflex] codeine Allergy Unknown Unknown Verified 03/08/19 08:03 meclizine Allergy Unknown Unknown Verified 03/08/19 08:03 Penicillins Allergy Unknown Rash/Hives Verified 03/08/19 08:03 shellfish derived Allergy Unknown Anaphylaxis Verified 03/08/19 08:03 adhesive tape Allergy Rash/Hives Verified 03/08/19 08:03 Fish Containing Products Allergy Anaphylaxis Verified 03/08/19 08:03 [Fish] Iodinated Contrast Media Allergy Anaphylaxis Verified 03/08/19 08:03 silver Allergy Rash/Hives Verified 03/08/19 08:03 [From Tegaderm AG Mesh] naproxen AdvReac Unknown Compromises Verified 03/08/19 08:03 Kidney Function atorvastatin calcium AdvReac Myalgia Verified 03/08/19 08:03 [From Lipitor] hydrocodone [From Twilight] AdvReac Rapid Verified 03/08/19 08:03 Heart Rate Physical Exam Vitals: Vital Signs Temp Pulse Resp BP Pulse Ox 03/14/19 08:00 97 F L 73 9 L 102/72 94 L 03/14/19 04:00 73 15 98/54 98 03/14/19 00:00 72 20 102/64 98 03/13/19 20:00 97 F L 71 14 100/77 94 L 03/13/19 18:00 74 14 113/71 98 03/13/19 17:00 73 11 L 113/71 98 03/13/19 16:00 76 16 113/71 98 03/13/19 15:00 73 15 113/71 98 03/13/19 14:00 74 14 113/71 99 03/13/19 13:00 98.1 F 76 11 L 113/71 99 03/13/19 12:00 78 11 L 113/71 98 03/13/19 11:00 75 20 104/73 97 Intake and Output 03/13/19 03/14/19 03/14/19 22:59 06:59 14:59 Intake Total 255 480 20 Output Total 300 275 0 Balance -45 205 20 Intake: IV 30 80 20 0.9 Sodium Chloride 30 80 20 Intake, IV Titration 100 Amount Aztreonam 2 gm In Sodium 100 Chloride 0.9% 100 ml @ 100 mls/hr IVPB Q8HR [facility] Rx#:[id number] Oral 225 300 Output: Urine 300 275 0 Other: Voiding Method Urinal Urinal Weight 107 kg Results - Lab Results Most recent lab results Calcium 8.8 mg/dL (8.4-10.2) 03/14/19 09:03 03/14/19 09:03 03/14/19 09:03 Assessment and Plan Plan: Assessment: 1. Hyponatremia. Currently appears euvolemic. Suspect due to poor solute intake. Sodium level CXXII today. 2. Chronic systolic CHF with ejection fraction of 20-25% with moderate tricuspid regurgitation and pulmonary hypertension. 3. Depression. 4. Metabolic acidosis secondary to acute kidney injury. 5. Mild acute kidney injury mostly prerenal. Renal function fairly stable. 6. Mild hyperkalemia secondary to metabolic acidosis. plan: 1200 mL fluid restriction. Encourage oral intake. Add ensure. Check serum and urine osmolality and urine sodium. Repeat electrolytes this evening. Add oral sodium bicarbonate. Check chest x-ray. Thank you for the consultation. I will continue to follow the patient with you during his hospital stay.
--- NOTE | 2019-03-14 11:02 | XR ---
EXAMINATION TYPE: XR chest 1V portable DATE OF EXAM: 03/14/2019 Comparison: 03/10/2019 Clinical History: 43 year-old male shortness of breath, r/o fluid overload Findings: Left anterior chest wall AICD generator with right atrial, right ventricular, and coronary sinus lead s. Urinary stent is also demonstrated. The heart remains mild to moderately enlarged. Low lung volume s with diffuse interstitial prominence. Patchy right basilar opacity and suggestion of a trace right effusion. Impression: Correlate for CHF with pulmonary vascular congestion. Suspect a trace right effusion with adjacent ri ght basilar atelectasis and/or consolidation.
[2019-03-14] MEDS: SODIUM BICARBONATE TAB 650 MG TAB PO SCH ×2 (11:07→20:35)
[2019-03-14 11:56] LABS: Glucose,Whole Blood 132 mg/dL (75-99)
--- NOTE | 2019-03-14 13:17 | P.PN ---
Subjective Progress Note Date: 03/14/19 Patient states the numbness has significantly improved. No new focal symptoms. Patient is noticing that he is talking more slowly, slight stuttering. He has just received pain medication as well. No other neurological symptoms. Objective - Vital Signs Vital signs: Vital Signs Temp 98.1 F 03/14/19 12:00 Pulse 73 03/14/19 12:00 Resp 10 L 03/14/19 12:00 BP 111/74 03/14/19 12:00 Pulse Ox 98 03/14/19 12:00 Intake & Output 03/13/19 03/14/19 03/14/19 18:59 06:59 18:59 Intake Total 385 510 60 Output Total 600 425 240 Balance -215 85 -180 Weight 107 kg Intake: IV 10 110 60 0.9 Sodium Chloride 10 110 60 Intake, IV Titration 100 Amount Aztreonam 2 gm In Sodium 100 Chloride 0.9% 100 ml @ 100 mls/hr IVPB Q8HR [facility] Rx#:[id number] Oral 375 300 Output: Urine 600 425 240 Other: Voiding Method Urinal Urinal Bedpan Urinal - Exam On examination patient is a middle aged male, in no distress. He is laying comfortably in the bed. Speech is slow, at times appears slightly d ysarthric. No aphasia. Cranial nerves are normal. Muscle strength appears normal. No pronator drift. - Labs CBC & Chem 7: 03/14/19 09:03 03/14/19 09:03 Labs: Abnormal Lab Results - Last 24 Hours (Table) 03/13/19 03/13/19 03/14/19 Range/Units 16:36 21:27 05:40 WBC (3.8-10.6) k/uL Hgb (13.0-17.5) gm/dL RDW (11.5-15.5) % Neutrophils # (1.3-7.7) k/uL Sodium (137-145) mmol/L Potassium (3.5-5.1) mmol/L Chloride (98-107) mmol/L Carbon Dioxide (22-30) mmol/L BUN (9-20) mg/dL Glucose (74-99) mg/dL POC Glucose (mg/dL) 163 H 165 H (75-99) mg/dL Osmolality (280-301) mosm/kg Alkaline Phosphatase (38-126) U/L Total Protein (6.3-8.2) g/dL Albumin (3.5-5.0) g/dL Urine Protein Trace H (Negative) Urine Ketones Trace H (Negative) Urine Blood Trace H (Negative) Ur Leukocyte Esterase Small H (Negative) Urine WBC 22 H (0-5) /hpf Urine WBC Clumps Occasional H (None) /hpf Hyaline Casts 42 H (0-2) /lpf Urine Mucus Occasional H (None) /hpf 03/14/19 03/14/19 03/14/19 Range/Units 06:40 09:03 09:03 WBC 12.2 H (3.8-10.6) k/uL Hgb 12.5 L (13.0-17.5) gm/dL RDW 18.8 H (11.5-15.5) % Neutrophils # 9.7 H (1.3-7.7) k/uL Sodium 122 L (137-145) mmol/L Potassium 5.5 H (3.5-5.1) mmol/L Chloride 92 L (98-107) mmol/L Carbon Dioxide 15 L (22-30) mmol/L BUN 54 H (9-20) mg/dL Glucose 117 H (74-99) mg/dL POC Glucose (mg/dL) 123 H (75-99) mg/dL Osmolality (280-301) mosm/kg Alkaline Phosphatase 187 H (38-126) U/L Total Protein 5.8 L (6.3-8.2) g/dL Albumin 3.3 L (3.5-5.0) g/dL Urine Protein (Negative) Urine Ketones (Negative) Urine Blood (Negative) Ur Leukocyte Esterase (Negative) Urine WBC (0-5) /hpf Urine WBC Clumps (None) /hpf Hyaline Casts (0-2) /lpf Urine Mucus (None) /hpf 03/14/19 03/14/19 Range/Units 09:03 11:54 WBC (3.8-10.6) k/uL Hgb (13.0-17.5) gm/dL RDW (11.5-15.5) % Neutrophils # (1.3-7.7) k/uL Sodium (137-145) mmol/L Potassium (3.5-5.1) mmol/L Chloride (98-107) mmol/L Carbon Dioxide (22-30) mmol/L BUN (9-20) mg/dL Glucose (74-99) mg/dL POC Glucose (mg/dL) 132 H (75-99) mg/dL Osmolality 267 L (280-301) mosm/kg Alkaline Phosphatase (38-126) U/L Total Protein (6.3-8.2) g/dL Albumin (3.5-5.0) g/dL Urine Protein (Negative) Urine Ketones (Negative) Urine Blood (Negative) Ur Leukocyte Esterase (Negative) Urine WBC (0-5) /hpf Urine WBC Clumps (None) /hpf Hyaline Casts (0-2) /lpf Urine Mucus (None) /hpf Microbiology - Last 24 Hours (Table) 03/14/19 05:40 Urine Culture - Preliminary Urine,Clean Catch Assessment and Plan Assessment: * 43-year-old male with long-standing history of diabetes, multiple medical problems, has developed numbness of right side of the body including face arm and leg since last night. Cannot rule out left thalamic lacunar stroke. * Diabetes, not well controlled * Congestive heart failure due to cardiomyopathy * Previous history of cardiac arrest * Coronary artery disease * Depression with suicidal ideation. * Hypertension. Plan: * Patient is already on appropriate medical treatment with Apixaban 5 mg twice a day and Plavix 75 mg daily. Adding another agent will pose high risk of hemorrhagic complications. * Patient cannot have MRI due to presence of a pacemaker. * Patient had a normal carotid Doppler on 11/10/2018, therefore no reason to repeat it. * Patient also had a 2-D echo performed recently which showed no thrombus, although has severe CHF, which could be a embolic risk factor. * I would suggest optimizing control of diabetes to target A1c <7.0. * Patient is currently not on statins due to ALLERGY to Lipitor. Consider alternate agent if possible. * Continue current medications as above. * Your medical management. * Neurologically clear.
--- NOTE | 2019-03-14 13:24 | P.PN ---
Subjective Progress Note Date: 03/14/19 Principal diagnosis: Major depressive disorder, and severe cardiomyopathy On 03/13/2019 I'm seeing this patient in follow-up in the intensive care unit. He is laying down comfortably in bed. He is hemodynamically stable. He is afebrile. He is on aztreonam regarding the possibility of an underlying UTI. He is chronically hyponatremic. Creatinine is at 1.2 which is improved compared to yesterday as I discontinued the patient's Lasix. The patient is in the ICU and he has a sitter at the bedside. He did have some suicidal ideations earlier regarding his severe depression. Today tells that he is feeling better. Psychiatry wanted to go to a medical psychiatric unit. I do not think he will be cleared to go to our psychiatric unit here in hospital as the patient has extensive medical history. I will suggest for the psychiatrist to do treatment here in the ICU while he is being treated for his medical problems at the same time. He is on Cymbalta 60 mg by mouth twice a day. His blood sugars are being monitored and they're adequately controlled. He is tolerating his diet. He is adequate urine output. No other significant events overnight otherwise. Patient was reevaluated today in the ICU, seems to be doing fairly well, he is on aztreonam for UTI, he has chronic hyponatremia and I recommended nephrology to evaluate, patient remains depressed, has been seen by psychiatry, and cardiology signed off the case. No active issues at this point except for his depression, and the patient is an overflow in the ICU. I plan to transfer him once a bed is available, and we will continue 1-1 sitter. All his labs were reviewed sodium is 122 today potassium is 5.5. BUN is 54 creatinine is 1.18, Lasix is presently on hold. He was felt to have hyponatremia secondary to diuretics. Patient is probably euvolemic at present, and we'll continue to hold the Lasix Objective - Vital Signs Vital signs: Vital Signs Temp 98.1 F 03/14/19 12:00 Pulse 73 03/14/19 12:00 Resp 10 L 03/14/19 12:00 BP 111/74 03/14/19 12:00 Pulse Ox 98 03/14/19 12:00 Intake & Output 03/13/19 03/14/19 03/14/19 18:59 06:59 18:59 Intake Total 385 510 60 Output Total 600 425 240 Balance -215 85 -180 Weight 107 kg Intake: IV 10 110 60 0.9 Sodium Chloride 10 110 60 Intake, IV Titration 100 Amount Aztreonam 2 gm In Sodium 100 Chloride 0.9% 100 ml @ 100 mls/hr IVPB Q8HR [facility] Rx#:[id number] Oral 375 300 Output: Urine 600 425 240 Other: Voiding Method Urinal Urinal Bedpan Urinal - Exam Physical Exam: Revealed a 43-year-old white male in no distress. HEENT:[Neck is supple.] [No neck masses.] [No thyromegaly.] [No JVD.] Chest: [Clear throughout, no crackles, no rhonchi, no wheezes.] Cardiac Exam: [Normal S1 and S2, no S3 gallop, no murmur.] Abdomen: [Soft, nontender, no megaly, no rebound, no guarding, normal bowel sounds.] Extremities: [No clubbing, no edema, no cyanosis.] Neurological Exam: [No focal neurologic deficit.] Psychiatric: Depressed mood, blunt affect, normal mental status examination otherwise. Skin: No rashes. - Labs CBC & Chem 7: 03/14/19 09:03 03/14/19 09:03 Labs: Abnormal Lab Results - Last 24 Hours (Table) 03/13/19 03/13/19 03/14/19 Range/Units 16:36 21:27 05:40 WBC (3.8-10.6) k/uL Hgb (13.0-17.5) gm/dL RDW (11.5-15.5) % Neutrophils # (1.3-7.7) k/uL Sodium (137-145) mmol/L Potassium (3.5-5.1) mmol/L Chloride (98-107) mmol/L Carbon Dioxide (22-30) mmol/L BUN (9-20) mg/dL Glucose (74-99) mg/dL POC Glucose (mg/dL) 163 H 165 H (75-99) mg/dL Osmolality (280-301) mosm/kg Alkaline Phosphatase (38-126) U/L Total Protein (6.3-8.2) g/dL Albumin (3.5-5.0) g/dL Urine Protein Trace H (Negative) Urine Ketones Trace H (Negative) Urine Blood Trace H (Negative) Ur Leukocyte Esterase Small H (Negative) Urine WBC 22 H (0-5) /hpf Urine WBC Clumps Occasional H (None) /hpf Hyaline Casts 42 H (0-2) /lpf Urine Mucus Occasional H (None) /hpf 03/14/19 03/14/19 03/14/19 Range/Units 06:40 09:03 09:03 WBC 12.2 H (3.8-10.6) k/uL Hgb 12.5 L (13.0-17.5) gm/dL RDW 18.8 H (11.5-15.5) % Neutrophils # 9.7 H (1.3-7.7) k/uL Sodium 122 L (137-145) mmol/L Potassium 5.5 H (3.5-5.1) mmol/L Chloride 92 L (98-107) mmol/L Carbon Dioxide 15 L (22-30) mmol/L BUN 54 H (9-20) mg/dL Glucose 117 H (74-99) mg/dL POC Glucose (mg/dL) 123 H (75-99) mg/dL Osmolality (280-301) mosm/kg Alkaline Phosphatase 187 H (38-126) U/L Total Protein 5.8 L (6.3-8.2) g/dL Albumin 3.3 L (3.5-5.0) g/dL Urine Protein (Negative) Urine Ketones (Negative) Urine Blood (Negative) Ur Leukocyte Esterase (Negative) Urine WBC (0-5) /hpf Urine WBC Clumps (None) /hpf Hyaline Casts (0-2) /lpf Urine Mucus (None) /hpf 03/14/19 03/14/19 Range/Units 09:03 11:54 WBC (3.8-10.6) k/uL Hgb (13.0-17.5) gm/dL RDW (11.5-15.5) % Neutrophils # (1.3-7.7) k/uL Sodium (137-145) mmol/L Potassium (3.5-5.1) mmol/L Chloride (98-107) mmol/L Carbon Dioxide (22-30) mmol/L BUN (9-20) mg/dL Glucose (74-99) mg/dL POC Glucose (mg/dL) 132 H (75-99) mg/dL Osmolality 267 L (280-301) mosm/kg Alkaline Phosphatase (38-126) U/L Total Protein (6.3-8.2) g/dL Albumin (3.5-5.0) g/dL Urine Protein (Negative) Urine Ketones (Negative) Urine Blood (Negative) Ur Leukocyte Esterase (Negative) Urine WBC (0-5) /hpf Urine WBC Clumps (None) /hpf Hyaline Casts (0-2) /lpf Urine Mucus (None) /hpf Microbiology - Last 24 Hours (Table) 03/14/19 05:40 Urine Culture - Preliminary Urine,Clean Catch Assessment and Plan Assessment: Impression: 1 chronic systolic congestive heart failure with pulmonary hypertension and moderate severe tricuspid regurgitation. 2 hyponatremia in spite of the patient is euvolemic at present, being addressed by nephrology. 3 acute kidney injury 4 mild hyperkalemia with metabolic acidosis. Recommendation: Encourage oral intake, continue fluid restriction to 1200 mL per 24 hours, continue to monitor daily labs, patient is being followed by primary care and by nephrology, and he is an overflow for selective. We'll sign off and see the patient on when necessary basis Time with Patient: Less than 30
--- NOTE | 2019-03-14 14:49 | P.PN ---
Progress Note - Text Progress Note Date: 03/14/19 Interval History: Patient was seen today for psychiatric follow-up with regards to patient's dep ression. Patient continues to be in the ICU this morning and was agreeable to speak to commercial underwriter at the bedside. Patient also had his alongside him who appeared to be supportive. stated that patient has been doing much better on the current medications and feels that he is not "suicidal right now" and does not mention anything with regards to suicide to her. When patient was asked how he is feeling he stated that he is feeling improved with regards to his mood and anxiety. He states that the Abilify is helping him along with the Cymbalta. He stated that he slept well last evening with no problems. Patient appears to have improved insight and judgment and is not impulsive at this time. Patient claims that he feels he is ready to go home and also spoke about wanting to be/have palliative care involved in his treatment at home and understands that his medical conditions are extensive. At this time patient denies any suicidal or homical ideations, intent or plan. Patient denies any auditory, visual hallucinations and denies any paranoia or delusions. Patient denies any side effects from the medications and has been compliant with meds. Mental Status Exam: General Appearance: Patient appears to be older than stated age, is alert, cooperative. Patient has improving hygiene and grooming. Behavior: Patient is calmly lying in bed without any agitated behavior. Speech: Patient's speech is fluent and nonpressured. Mood/Affect: Patient reports their mood is "good", affect is congruent and constricted. Suicidality/Homicidality: Denies any suicidal ideations or homicidal ideations at this time, no intent or plan. Perceptions: Denies any auditory or visual hallucinations. Though content/process: There is no evidence of any delusional thought content and thought process is linear and goal-directed. [place]. Memory and concentration: AOX3, grossly intact for the purposes of this session. Can spell "WORLD" backwards Judgment and insight: Fair, improving mildly. Assessment Major depressive disorder, recurrent, moderate-severe Anxiety disorder unspecified PLAN: -Would recommend the following medication changes/additions: Can continue with Cymbalta 60 mg twice a day for depression. Continue with Abilify 2.5 mg daily for mood adjunct. -1:1 sitter can be discontinued at this time. -Patient is interested in palliative care -He was connected to [facility] recently and will need to be rescreened for psychiatric outpatient services. -Patient appears to be improved over the past few days with regards to his mood and anxiety and suicidal thoughts. Patient is not endorsing suicidal ideations of a longer and his assured patient's safety. Patient and denied any access to guns or weapons at this time. Patient and feel that patient can be discharged home when medically appropriate. -Psychiatry will sign off at this time. Patient no longer requires inpatient psychiatric admission. -
--- NOTE | 2019-03-14 15:18 | P.PN ---
Subjective Progress Note Date: 03/14/19 Principal diagnosis: 43-year-old male was admitted for suicidal ideation. Please refer to my dictation from my ER physician for further details. Patient has severe ischemic cardiomyopathy and has an AICD in place. Patient was recently admitted to this hospital and was subsequently transferred to [facility] and per the patient although not verified, patient apparently had a balloon pump headache cardio pulmonary arrest. We will obtain medical records from [facility]. Patient is hyponatremic and patient was on Bumex which will be held and also lisinopril and Coreg will be held at this time because of hypotension. Patient will be started on metoprolol because of low blood pressure and tachycardia. Patient's blood pressure normally stays low in part of which is to to his low ejection fraction. Patient will be continued on a sliding scale insulin and depending on a sliding scale requirements will evaluate and discharge with possible insulin. Patient shows shortness of breath and was complaining of some chest pain although patient has similar complaints every single time he gets admitted to the hospital. Cardiology evaluated the patient and is following. Further management of chest pain as per cardiology. Psychiatry will evaluate for depression and suicidal ideation. 03/09/2019 Patient is sitting up at the site of the bed in no acute distress this morning. Patient is awaiting for the bed change as he just woke up and urinated himself in the bed. When asked if he had issues or problems getting up or using the urinal he stated "I was caught in a dream". Patient does have a sitter at the bedside for suicide precautions. Today joseph the of his son and patient states he is severely depressed. When speaking with the patient this morning patient denied any severe chest pain, palpitations, or shortness of breath. Patient denied any nausea or vomiting and states he hasn't been eating very well as he has no appetite. Patient is afebrile. On asking the patient if he was experiencing any suicidal thoughts he stated "I don't know, nothing matters anyway". Per nursing staff patient continues to request something for pain. Guarded prognosis. 03/10/2019 Patient hyponatremia has worsened patient initially had hypovolemic hyponatremia now appears to have hypervolemic hyponatremia oxygen saturation subchondral down because of which IV fluids were discontinued and patient will be given a dose of Lasix his blood pressure can tolerate will give another dose of Lasix today the basic metabolic profile tomorrow patient probably need to be on following medications for heart failure 40 mg twice a day of Lasix oral, metoprolol 25 twice a day in place of Coreg and probably ROWAN inhibitor can be started slowly as an outpatient. Patient is awaiting disposition to med psych floor. Constitutional: Denied any fatigue denied any fever. Cardio vascular: Patient's chest pain is better Gastrointestinal denied any nausea vomiting Pulmonary: Denied any shortness of breath cough Neurologic denied any new focal deficits All inpatient medications were reviewed and appropriate changes in these medications as dictated in the interval history and assessment and plan. 03/11/2019 Patient is sitting up in bed in no acute distress in the ICU as an overflow for close monitoring. Family is at the bedside. Patient continues to have a sitter at the bedside for suicidal ideation. Today patient states he feels much better mentally but continues to have chest pain that is pressured and sharp in nature. Patient states that he also is continuing to have headache with right-sided facial numbness and right upper and lower extremity weakness and feels that he needs to see a neurologist. Neurologist was consulted. Patient sodium today is 123 and is being closely monitored. Patient will be started on a low-dose of IV Lasix 20 mg daily and will continue to monitor vital signs and labs closely. Patient denies any shortness of breath or palpitations at this time. Patient denies any nausea or vomiting and is tolerating diet. Per nursing staff patient has been eating all of his meals. REVIEW OF SYSTEMS: ENT: No diminished vision or hearing. CARDIOVASCULAR: Mentioned earlier. RESPIRATORY: As mentioned earlier. GI: No nausea, vomiting or diarrhea. : No dysuria or retention. NERVOUS SYSTEM: Reports numbness and weakness of the right side of the face al pranav with upper and lower extremities of the right side. ALLERGY/IMMUNOLOGY: No asthma or hay fever. MUSCULOSKELETAL: As mentioned earlier. HEMATOLOGY/ONCOLOGY: No history of anemia. ENDOCRINE: Reports diabetes CONSTITUTIONAL: As mentioned earlier. PSYCHIATRY: Mentioned earlier. 03/14/2019 Patient is lying in bed in no acute distress with a sitter at the side of the bed. Per nursing staff patient was accepted at a [facility] psych facility in [place] case management and social work are following. Patient is being seen by multiple medical consultations. Currently patient denies any suicidal thoughts and has no plans. Patient states that he is feeling somewhat better but still having some abdominal discomfort with bloating and not passing gas or having bowel movements. Per nursing staff patient is refusing stool softeners. Currently patient denies any chest pain, shortness of breath, or palpitations at this time. Patient is afebrile. Patient denies any nausea or vomiting. Guard ed prognosis. Objective - Vital Signs Vital signs: Vital Signs Temp 98.1 F 03/14/19 12:00 Pulse 73 03/14/19 12:00 Resp 10 L 03/14/19 12:00 BP 111/74 03/14/19 12:00 Pulse Ox 98 03/14/19 12:00 Intake & Output 03/13/19 03/14/19 03/14/19 18:59 06:59 18:59 Intake Total 385 510 60 Output Total 600 425 240 Balance -215 85 -180 Weight 107 kg Intake: IV 10 110 60 0.9 Sodium Chloride 10 110 60 Intake, IV Titration 100 Amount Aztreonam 2 gm In Sodium 100 Chloride 0.9% 100 ml @ 100 mls/hr IVPB Q8HR [facility] Rx#:[id number] Oral 375 300 Output: Urine 600 425 240 Other: Voiding Method Urinal Urinal Bedpan Urinal - Exam GENERAL: The patient is alert and oriented x3, not in any acute distress. Well developed, well nourished. Vital signs are stable. Blood pressure is 111/74, pulse is 93, respirations are 20, temp is 98.1 F, oxygen saturation is 98 % on room air. HEENT: Pupils are round and equally reacting to light. EOMI. No scleral icterus. No conjunctival pallor. Normocephalic, atraumatic. No pharyngeal erythema. No thyromegaly. CARDIOVASCULAR: S1 and S2 present. No murmurs, rubs, or gallops. PULMONARY: Chest is clear to auscultation, no wheezing or crackles. ABDOMEN: Soft, obese, nontender, mildly distended, normoactive bowel sounds. No palpable organomegaly. MUSCULOSKELETAL: No joint swelling or deformity. EXTREMITIES: No cyanosis, clubbing, or pedal edema. NEUROLOGICAL: Gross neurological examination did not reveal any focal deficits. SKIN: No rashes. - Labs CBC & Chem 7: 03/14/19 09:03 03/14/19 09:03 Labs: Abnormal Lab Results - Last 24 Hours (Table) 03/13/19 03/13/19 03/14/19 Range/Units 16:36 21:27 05:40 WBC (3.8-10.6) k/uL Hgb (13.0-17.5) gm/dL RDW (11.5-15.5) % Neutrophils # (1.3-7.7) k/uL Sodium (137-145) mmol/L Potassium (3.5-5.1) mmol/L Chloride (98-107) mmol/L Carbon Dioxide (22-30) mmol/L BUN (9-20) mg/dL Glucose (74-99) mg/dL POC Glucose (mg/dL) 163 H 165 H (75-99) mg/dL Osmolality (280-301) mosm/kg Alkaline Phosphatase (38-126) U/L Total Protein (6.3-8.2) g/dL Albumin (3.5-5.0) g/dL Urine Protein Trace H (Negative) Urine Ketones Trace H (Negative) Urine Blood Trace H (Negative) Ur Leukocyte Esterase Small H (Negative) Urine WBC 22 H (0-5) /hpf Urine WBC Clumps Occasional H (None) /hpf Hyaline Casts 42 H (0-2) /lpf Urine Mucus Occasional H (None) /hpf 03/14/19 03/14/19 03/14/19 Range/Units 06:40 09:03 09:03 WBC 12.2 H (3.8-10.6) k/uL Hgb 12.5 L (13.0-17.5) gm/dL RDW 18.8 H (11.5-15.5) % Neutrophils # 9.7 H (1.3-7.7) k/uL Sodium 122 L (137-145) mmol/L Potassium 5.5 H (3.5-5.1) mmol/L Chloride 92 L (98-107) mmol/L Carbon Dioxide 15 L (22-30) mmol/L BUN 54 H (9-20) mg/dL Glucose 117 H (74-99) mg/dL POC Glucose (mg/dL) 123 H (75-99) mg/dL Osmolality (280-301) mosm/kg Alkaline Phosphatase 187 H (38-126) U/L Total Protein 5.8 L (6.3-8.2) g/dL Albumin 3.3 L (3.5-5.0) g/dL Urine Protein (Negative) Urine Ketones (Negative) Urine Blood (Negative) Ur Leukocyte Esterase (Negative) Urine WBC (0-5) /hpf Urine WBC Clumps (None) /hpf Hyaline Casts (0-2) /lpf Urine Mucus (None) /hpf 03/14/19 03/14/19 Range/Units 09:03 11:54 WBC (3.8-10.6) k/uL Hgb (13.0-17.5) gm/dL RDW (11.5-15.5) % Neutrophils # (1.3-7.7) k/uL Sodium (137-145) mmol/L Potassium (3.5-5.1) mmol/L Chloride (98-107) mmol/L Carbon Dioxide (22-30) mmol/L BUN (9-20) mg/dL Glucose (74-99) mg/dL POC Glucose (mg/dL) 132 H (75-99) mg/dL Osmolality 267 L (280-301) mosm/kg Alkaline Phosphatase (38-126) U/L Total Protein (6.3-8.2) g/dL Albumin (3.5-5.0) g/dL Urine Protein (Negative) Urine Ketones (Negative) Urine Blood (Negative) Ur Leukocyte Esterase (Negative) Urine WBC (0-5) /hpf Urine WBC Clumps (None) /hpf Hyaline Casts (0-2) /lpf Urine Mucus (None) /hpf Microbiology - Last 24 Hours (Table) 03/14/19 05:40 Urine Culture - Preliminary Urine,Clean Catch Assessment and Plan Assessment: Congestive heart failure, acute exacerbation with acute on chronic systolic dysfunction. Ejection fraction 20% with possible cardiomyopathy Chest pain, unstable angina History of coronary artery disease with multiple stents in the past History of suicidal ideation Hyponatremia possibly hypovolemic in nature Hypertension Hyperlipidemia History of diabetes mellitus type 2 History of diabetic peripheral neuropathy History of deep vein thrombosis History of gastroesophageal reflux disease next line history of obesity Sleep apnea History of anemia Mild hyperkalemia Depression Atrial fibrillation, chronic, rate controlled with severe coronary disease with multiple stents Renal failure possibly mild acute renal failure with acute prerenal acute tubular necrosis Recommendations and discussion: Recommend to continue current medications, management, and symptomatic treatment. Nephrology is following and place the patient on sodium bicarbonate tablets and fluid restrictions of 1200 mL. Will await repeat labs. Will continue to monitor closely. Will repeat a.m. labs. Sodium today is 122. Patient is currently awaiting a Medr bed with telemetry as he is still in the ICU overflow. Psychiatry was seeing the patient and is signed off and has cleared the patient for discharge home once medically stable. Extremely guarded prognosis. Further recommendations to follow.
[2019-03-14 17:32] LABS: Calcium 8.3 mg/dL (8.4-10.2); Potassium 5.5 mmol/L (3.5-5.1)
[2019-03-14 17:33] LABS: Glucose,Whole Blood 129 mg/dL (75-99)
[2019-03-14 20:30] LABS: Glucose,Whole Blood 154 mg/dL (75-99)
[2019-03-14] MEDS: INSULIN DETEMIR (LEVEMIR) 100 UNIT/ML SYR SQ SCH (20:35)
[2019-03-14] MEDS ORDERED: FUROSEMIDE 10 MG/ML 4 ML VIAL IV STA (21:37)
[2019-03-14] MEDS ORDERED: FUROSEMIDE 10 MG/ML 4 ML VIAL ONE (22:11)
[2019-03-15] MEDS: HYDROmorphone 0.5 MG/0.5 ML SYRINGE IVP PRN ×4 (03:29→23:04)
[2019-03-15 06:27] LABS: Anisocytosis Slight; Basophils # (A) 0.1 k/uL (0-0.2); Basophils % (A) 2 %; Eosinophils # (A) 0.2 k/uL (0-0.7); Eosinophils % (A) 3 %; HCT 34.3 % (39.0-53.0); HGB 11.7 gm/dL (13.0-17.5); Hypochromasia Slight; Lymphocytes # (A) 1.1 k/uL (1.0-4.8); Lymphocytes % (A) 13 %; MCH 28.3 pg (25.0-35.0); Mean Platelet Volume 6.3; Microcytosis Slight; Monocytes # (A) 0.3 k/uL (0-1.0); Monocytes % (A) 3 %; Neutrophils # (A) 6.5 k/uL (1.3-7.7); Neutrophils % (A) 78 %; Platelet Count 419 k/uL (150-450); Poikilocytosis Slight; RBC 4.13 m/uL (4.30-5.90); RDW 19.2 % (11.5-15.5); WBC 8.4 k/uL (3.8-10.6)
[2019-03-15 06:30] LABS: African American GFR (CKD) >90 (>60 ml/min/1.73 sqM); Anion Gap 10 mmol/L; Blood Urea Nitrogen 60 mg/dL (9-20); Calcium 8.9 mg/dL (8.4-10.2); Carbon Dioxide 18 mmol/L (22-30); Chloride 92 mmol/L (98-107); Glucose 90 mg/dL (74-99); Sodium 120 mmol/L (137-145)
[2019-03-15 06:42] LABS: Potassium 5.4 mmol/L (3.5-5.1)
[2019-03-15] MEDS: INSULIN ASPART (NovoLOG) 100 UNIT/ML VIAL SQ SCH ×4 (06:46→20:41)
[2019-03-15] MEDS: PANTOPRAZOLE 40 MG TABLET PO SCH (06:46)
[2019-03-15 06:51] LABS: MCV 83.1 fL (80.0-100.0)
[2019-03-15] MEDS: APIXABAN 5 MG TAB PO SCH ×2 (08:51→20:41)
[2019-03-15] MEDS: ARIPiprazole 5 MG TAB PO SCH (08:51)
[2019-03-15] MEDS: METOPROLOL TARTRATE 25 MG TAB PO SCH ×2 (08:52→20:42)
[2019-03-15] MEDS: CLOPIDOGREL 75 MG TAB PO SCH (08:52)
[2019-03-15] MEDS: DULoxetine HCL 60 MG CAPSULE.DR PO SCH ×2 (08:52→20:42)
[2019-03-15] MEDS: GABAPENTIN 100 MG CAP PO SCH ×3 (08:52→20:42)
[2019-03-15] MEDS: TAMSULOSIN 0.4 MG CAP.ER.24H PO SCH (08:53)
[2019-03-15] MEDS: PRIMIDONE 50 MG TAB PO SCH ×2 (08:54→20:42)
[2019-03-15] MEDS: SODIUM BICARBONATE TAB 650 MG TAB PO SCH ×2 (08:54→20:42)
[2019-03-15] MEDS: NON FORMULARY DRUG (Rosuvastatin 10 MG) PO SCH (08:55)
[2019-03-15 10:08] VITALS: BMI 38.4
[2019-03-15] MEDS: AZTREONAM 2 GM in SODIUM CHLORIDE 0.9% 100 ML IVPB SCH ×2 (10:15→17:11)
[2019-03-15] MEDS ORDERED: TOLVAPTAN 15 MG 1/2 TABLET PO ONE (11:00)
--- NOTE | 2019-03-15 11:45 | P.PN ---
Subjective Patient is seen in follow-up for hyponatremia. Sodium level 120 this morning. He did receive a dose of IV Lasix 40 mg last night. Urine output near 820 mL in the last 24 hours. Feels tired. Oral intake is poor. Vital signs are stable. General: The patient appeared well nourished and normally developed. HEENT: Head exam is unremarkable. Neck is without jugular venous distension. LUNGS: Breath sounds decreased. HEART: Rate and Rhythm are regular. First and second heart sounds normal. No murmurs, rubs or gallops. ABDOMEN: Abdominal exam reveals normal bowel sounds. Non-tender and non- distended. EXTREMITITES: No clubbing, cyanosis, or edema. Objective - Vital Signs Vital signs: Vital Signs Temp 97.5 F L 03/15/19 08:00 Pulse 67 03/15/19 08:00 Resp 16 03/15/19 08:00 BP 108/79 03/15/19 08:00 Pulse Ox 98 03/15/19 08:00 Intake & Output 03/14/19 03/15/19 03/15/19 18:59 06:59 18:59 Intake Total 100 10 Output Total 240 580 50 Balance -140 -570 -50 Weight 108 kg 108 kg Intake: IV 100 10 0.9 Sodium Chloride 100 10 Output: Urine 240 580 50 Other: Voiding Method Bedpan Urinal # Voids 2 # Bowel Movements 1 - Labs CBC & Chem 7: 03/15/19 06:05 03/15/19 06:05 Labs: Abnormal Lab Results - Last 24 Hours (Table) 03/14/19 03/14/19 03/14/19 Range/Units 11:54 16:51 17:31 RBC (4.30-5.90) m/uL Hgb (13.0-17.5) gm/dL Hct (39.0-53.0) % RDW (11.5-15.5) % Sodium 120 L (137-145) mmol/L Potassium 5.5 H (3.5-5.1) mmol/L Chloride 89 L (98-107) mmol/L Carbon Dioxide 19 L (22-30) mmol/L BUN 57 H (9-20) mg/dL Glucose 116 H (74-99) mg/dL POC Glucose (mg/dL) 132 H 129 H (75-99) mg/dL Calcium 8.3 L (8.4-10.2) mg/dL 03/14/19 03/15/19 03/15/19 Range/Units 20:26 06:05 06:05 RBC 4.13 L (4.30-5.90) m/uL Hgb 11.7 L (13.0-17.5) gm/dL Hct 34.3 L (39.0-53.0) % RDW 19.2 H (11.5-15.5) % Sodium 120 L (137-145) mmol/L Potassium 5.4 H (3.5-5.1) mmol/L Chloride 92 L (98-107) mmol/L Carbon Dioxide 18 L (22-30) mmol/L BUN 60 H (9-20) mg/dL Glucose (74-99) mg/dL POC Glucose (mg/dL) 154 H (75-99) mg/dL Calcium (8.4-10.2) mg/dL Microbiology - Last 24 Hours (Table) 03/14/19 05:40 Urine Culture - Final Urine,Clean Catch Assessment and Plan Plan: Assessment: 1. Hyponatremia. Slightly hypervolemic as chest x-ray suggestive of CHF. Also component of poor solute intake. Sodium level 120 today. Urine sodium less than 10 and urine osmolality 515. 2. Chronic systolic CHF with ejection fraction of 20-25% with moderate tricuspid regurgitation and pulmonary hypertension. 3. Depression. 4. Metabolic acidosis secondary to acute kidney injury. 5. Mild acute kidney injury mostly prerenal. Renal function fairly stable. 6. Mild hyperkalemia secondary to metabolic acidosis. Plan: Samsca 15 mg once today. Encourage oral intake. Ensure added. Repeat electrolytes this evening. Maintain oral sodium bicarbonate.
[2019-03-15 12:19] LABS: Glucose,Whole Blood 84 mg/dL (75-99)
--- NOTE | 2019-03-15 12:24 | P.PN ---
Subjective Progress Note Date: 03/15/19 Patient states he feels "rough". This is because of chest pain. The right- sided numbness has now resolved. Denies any new focal symptoms. Patient is noticing that he is talking better. Objective - Vital Signs Vital signs: Vital Signs Temp 97.6 F 03/15/19 12:00 Pulse 69 03/15/19 12:00 Resp 15 03/15/19 12:00 BP 115/86 03/15/19 12:00 Pulse Ox 98 03/15/19 12:00 Intake & Output 03/14/19 03/15/19 03/15/19 18:59 06:59 18:59 Intake Total 100 10 120 Output Total 240 580 300 Balance -140 -570 -180 Weight 108 kg 108 kg Intake: IV 100 10 120 0.9 Sodium Chloride 100 10 20 Aztreonam 2 gm In Sodium 100 Chloride 0.9% 100 ml @ 100 mls/hr IVPB Q8HR [facility] Rx#:[id number] Output: Urine 240 580 300 Other: Voiding Method Bedpan Urinal # Voids 2 # Bowel Movements 1 - Exam On examination patient is a middle aged male, in no distress. He is laying comfortably in the bed. Speech is slow, no dysarthria. No aphasia. Cranial nerves are normal. Muscle strength appears normal, with right deltoid 5-as compared to the left. No pronator drift. Strength equal in the legs. - Labs CBC & Chem 7: 03/15/19 06:05 03/15/19 06:05 Labs: Abnormal Lab Results - Last 24 Hours (Table) 03/14/19 03/14/19 03/14/19 Range/Units 16:51 17:31 20:26 RBC (4.30-5.90) m/uL Hgb (13.0-17.5) gm/dL Hct (39.0-53.0) % RDW (11.5-15.5) % Sodium 120 L (137-145) mmol/L Potassium 5.5 H (3.5-5.1) mmol/L Chloride 89 L (98-107) mmol/L Carbon Dioxide 19 L (22-30) mmol/L BUN 57 H (9-20) mg/dL Glucose 116 H (74-99) mg/dL POC Glucose (mg/dL) 129 H 154 H (75-99) mg/dL Calcium 8.3 L (8.4-10.2) mg/dL 03/15/19 03/15/19 Range/Units 06:05 06:05 RBC 4.13 L (4.30-5.90) m/uL Hgb 11.7 L (13.0-17.5) gm/dL Hct 34.3 L (39.0-53.0) % RDW 19.2 H (11.5-15.5) % Sodium 120 L (137-145) mmol/L Potassium 5.4 H (3.5-5.1) mmol/L Chloride 92 L (98-107) mmol/L Carbon Dioxide 18 L (22-30) mmol/L BUN 60 H (9-20) mg/dL Glucose (74-99) mg/dL POC Glucose (mg/dL) (75-99) mg/dL Calcium (8.4-10.2) mg/dL Microbiology - Last 24 Hours (Table) 03/14/19 05:40 Urine Culture - Final Urine,Clean Catch Assessment and Plan Assessment: * Possible TIA/CVA manifesting with numbness of right side of the body, now seems to have resolved. * Diabetes, not well controlled * Congestive heart failure due to cardiomyopathy * Previous history of cardiac arrest * Coronary artery disease * Depression with suicidal ideation. * Hypertension. Plan: * Patient is already on appropriate medical treatment with Apixaban 5 mg twice a day and Plavix 75 mg daily. Adding another agent will pose high risk of hemorrhagic complications. * Patient cannot have MRI due to presence of a pacemaker. * Patient had a normal carotid Doppler on 11/10/2018, therefore no reason to repeat it. * Patient also had a 2-D echo performed recently which showed no thrombus, although has severe CHF, which could be a embolic risk factor. * I would suggest optimizing control of diabetes to target A1c <7.0. * Patient is currently not on statins due to ALLERGY to Lipitor. Consider alternate agent if possible. * Continue current medications as above. * Your medical management. * Neurologically clear.
--- NOTE | 2019-03-15 14:30 | P.PN ---
Subjective Progress Note Date: 03/15/19 Principal diagnosis: 43-year-old male was admitted for suicidal ideation. Please refer to my dictation from my ER physician for further details. Patient has severe ischemic cardiomyopathy and has an AICD in place. Patient was recently admitted to this hospital and was subsequently transferred to [facility] and per the patient although not verified, patient apparently had a balloon pump headache cardio pulmonary arrest. We will obtain medical records from [facility]. Patient is hyponatremic and patient was on Bumex which will be held and also lisinopril and Coreg will be held at this time because of hypotension. Patient will be started on metoprolol because of low blood pressure and tachycardia. Patient's blood pressure normally stays low in part of which is to to his low ejection fraction. Patient will be continued on a sliding scale insulin and depending on a sliding scale requirements will evaluate and discharge with possible insulin. Patient shows shortness of breath and was complaining of some chest pain although patient has similar complaints every single time he gets admitted to the hospital. Cardiology evaluated the patient and is following. Further management of chest pain as per cardiology. Psychiatry will evaluate for depression and suicidal ideation. 03/09/2019 Patient is sitting up at the site of the bed in no acute distress this morning. Patient is awaiting for the bed change as he just woke up and urinated himself in the bed. When asked if he had issues or problems getting up or using the urinal he stated "I was caught in a dream". Patient does have a sitter at the bedside for suicide precautions. Today joseph the of his son and patient states he is severely depressed. When speaking with the patient this morning patient denied any severe chest pain, palpitations, or shortness of breath. Patient denied any nausea or vomiting and states he hasn't been eating very well as he has no appetite. Patient is afebrile. On asking the patient if he was experiencing any suicidal thoughts he stated "I don't know, nothing matters anyway". Per nursing staff patient continues to request something for pain. Guarded prognosis. 03/10/2019 Patient hyponatremia has worsened patient initially had hypovolemic hyponatremia now appears to have hypervolemic hyponatremia oxygen saturation subchondral down because of which IV fluids were discontinued and patient will be given a dose of Lasix his blood pressure can tolerate will give another dose of Lasix today the basic metabolic profile tomorrow patient probably need to be on following medications for heart failure 40 mg twice a day of Lasix oral, metoprolol 25 twice a day in place of Coreg and probably ROWAN inhibitor can be started slowly as an outpatient. Patient is awaiting disposition to med psych floor. Constitutional: Denied any fatigue denied any fever. Cardio vascular: Patient's chest pain is better Gastrointestinal denied any nausea vomiting Pulmonary: Denied any shortness of breath cough Neurologic denied any new focal deficits All inpatient medications were reviewed and appropriate changes in these medications as dictated in the interval history and assessment and plan. 03/11/2019 Patient is sitting up in bed in no acute distress in the ICU as an overflow for close monitoring. Family is at the bedside. Patient continues to have a sitter at the bedside for suicidal ideation. Today patient states he feels much better mentally but continues to have chest pain that is pressured and sharp in nature. Patient states that he also is continuing to have headache with right-sided facial numbness and right upper and lower extremity weakness and feels that he needs to see a neurologist. Neurologist was consulted. Patient sodium today is 123 and is being closely monitored. Patient will be started on a low-dose of IV Lasix 20 mg daily and will continue to monitor vital signs and labs closely. Patient denies any shortness of breath or palpitations at this time. Patient denies any nausea or vomiting and is tolerating diet. Per nursing staff patient has been eating all of his meals. REVIEW OF SYSTEMS: ENT: No diminished vision or hearing. CARDIOVASCULAR: Mentioned earlier. RESPIRATORY: As mentioned earlier. GI: No nausea, vomiting or diarrhea. : No dysuria or retention. NERVOUS SYSTEM: Reports numbness and weakness of the right side of the face al pranav with upper and lower extremities of the right side. ALLERGY/IMMUNOLOGY: No asthma or hay fever. MUSCULOSKELETAL: As mentioned earlier. HEMATOLOGY/ONCOLOGY: No history of anemia. ENDOCRINE: Reports diabetes CONSTITUTIONAL: As mentioned earlier. PSYCHIATRY: Mentioned earlier. 03/14/2019 Patient is lying in bed in no acute distress with a sitter at the side of the bed. Per nursing staff patient was accepted at a [facility] facility in [place] case management and social work are following. Patient is being seen by multiple medical consultations. Currently patient denies any suicidal thoughts and has no plans. Patient states that he is feeling somewhat better but still having some abdominal discomfort with bloating and not passing gas or having bowel movements. Per nursing staff patient is refusing stool softeners. Currently patient denies any chest pain, shortness of breath, or palpitations at this time. Patient is afebrile. Patient denies any nausea or vomiting. Guard ed prognosis. 03/15/2019 Patient is sitting up in bed in no acute distress sleeping but easily arousable. Suicide sitter has been discontinued and psychiatry has cleared him for discharge once medically stable. Nephrology is following closely. Patient was given tolvaptan this morning and awaiting repeat labs this afternoon. Will continue to monitor closely. Patient states that he still continues to have chest pain intermittently and denies shortness of breath or palpitations at this time. Patient is afebrile. Patient denies nausea or vomiting and is tolerating diet. Patient remains on fluid restrictions of 1200 mL per day. Patient is urinating and has not had a bowel movement yet today. No acute overnight issues. Guarded prognosis. Objective - Vital Signs Vital signs: Vital Signs Temp 97.6 F 03/15/19 12:00 Pulse 69 03/15/19 12:00 Resp 15 03/15/19 12:00 BP 115/86 03/15/19 12:00 Pulse Ox 98 03/15/19 12:00 Intake & Output 03/14/19 03/15/19 03/15/19 18:59 06:59 18:59 Intake Total 100 10 120 Output Total 240 580 300 Balance -140 -570 -180 Weight 108 kg 108 kg Intake: IV 100 10 120 0.9 Sodium Chloride 100 10 20 Aztreonam 2 gm In Sodium 100 Chloride 0.9% 100 ml @ 100 mls/hr IVPB Q8HR [facility] Rx#:[id number] Output: Urine 240 580 300 Other: Voiding Method Bedpan Indwelling Catheter Urinal # Voids 2 # Bowel Movements 1 - Exam GENERAL: The patient is alert and oriented x3, not in any acute distress. Well developed, well nourished. Vital signs are stable. Blood pressure is 115/86, pulse is 69, respirations are 15, temp is 97.6 F, oxygen saturation is 98 % on room air. HEENT: Pupils are round and equally reacting to light. EOMI. No scleral icterus. No conjunctival pallor. Normocephalic, atraumatic. No pharyngeal erythema. No thyromegaly. CARDIOVASCULAR: S1 and S2 present. No murmurs, rubs, or gallops. PULMONARY: Diminished breath sounds at the bases otherwise Chest is clear to auscultation, no wheezing or crackles. ABDOMEN: Soft, obese, nontender, mildly distended, normoactive bowel sounds. No palpable organomegaly. MUSCULOSKELETAL: No joint swelling or deformity. EXTREMITIES: No cyanosis, clubbing, or pedal edema. NEUROLOGICAL: Gross neurological examination did not reveal any focal deficits. SKIN: No rashes, pale, unkempt. - Labs CBC & Chem 7: 03/15/19 06:05 03/15/19 06:05 Labs: Abnormal Lab Results - Last 24 Hours (Table) 03/14/19 03/14/19 03/14/19 Range/Units 16:51 17:31 20:26 RBC (4.30-5.90) m/uL Hgb (13.0-17.5) gm/dL Hct (39.0-53.0) % RDW (11.5-15.5) % Sodium 120 L (137-145) mmol/L Potassium 5.5 H (3.5-5.1) mmol/L Chloride 89 L (98-107) mmol/L Carbon Dioxide 19 L (22-30) mmol/L BUN 57 H (9-20) mg/dL Glucose 116 H (74-99) mg/dL POC Glucose (mg/dL) 129 H 154 H (75-99) mg/dL Calcium 8.3 L (8.4-10.2) mg/dL 03/15/19 03/15/19 Range/Units 06:05 06:05 RBC 4.13 L (4.30-5.90) m/uL Hgb 11.7 L (13.0-17.5) gm/dL Hct 34.3 L (39.0-53.0) % RDW 19.2 H (11.5-15.5) % Sodium 120 L (137-145) mmol/L Potassium 5.4 H (3.5-5.1) mmol/L Chloride 92 L (98-107) mmol/L Carbon Dioxide 18 L (22-30) mmol/L BUN 60 H (9-20) mg/dL Glucose (74-99) mg/dL POC Glucose (mg/dL) (75-99) mg/dL Calcium (8.4-10.2) mg/dL Microbiology - Last 24 Hours (Table) 03/14/19 05:40 Urine Culture - Final Urine,Clean Catch Assessment and Plan Assessment: Congestive heart failure, acute exacerbation with acute on chronic systolic dysfunction. Ejection fraction 20% with possible cardiomyopathy Chest pain, unstable angina History of coronary artery disease with multiple stents in the past History of suicidal ideation Hyponatremia possibly hypovolemic in nature Hypertension Hyperlipidemia History of diabetes mellitus type 2 History of diabetic peripheral neuropathy History of deep vein thrombosis History of gastroesophageal reflux disease next line history of obesity Sleep apnea History of anemia Mild hyperkalemia Depression Atrial fibrillation, chronic, rate controlled with severe coronary disease with multiple stents Renal failure possibly mild acute renal failure with acute prerenal acute tubular necrosis Recommendations and discussion: Recommend to continue current medications, management, and symptomatic treatment. Nephrology is following and placed the patient on sodium bicarbonate tablets and fluid restrictions of 1200 mL. patient was given Tolvaptan and awaiting repeat labs. Will continue to monitor closely. Sodium today is 120. [facility] as he is still in the ICU overflow. Patient denies any suicidal ideation at this time. Psychiatry was seeing the patient and has signed off and has cleared the patient for discharge home once medically stable. Extremely guarded prognosis. Further recommendations to follow. Possible discharge in 24-48 hours.
[2019-03-15 16:39] LABS: Glucose,Whole Blood 81 mg/dL (75-99)
[2019-03-15 17:36] LABS: African American GFR (CKD) >90 (>60 ml/min/1.73 sqM); Blood Urea Nitrogen 61 mg/dL (9-20); Calcium 8.9 mg/dL (8.4-10.2); Carbon Dioxide 15 mmol/L (22-30); Glucose 79 mg/dL (74-99)
[2019-03-15 18:15] LABS: Anion Gap 13 mmol/L; Chloride 96 mmol/L (98-107); Sodium 124 mmol/L (137-145)
[2019-03-15 18:16] LABS: Potassium 6.2 mmol/L (3.5-5.1)
[2019-03-15] MEDS ORDERED: DEXTROSE 10 % IN WATER 250 ML IV STA (18:30)
[2019-03-15] MEDS ORDERED: SODIUM BICARB 8.4% 50 ML SYR (1 MEQ/ML) IV STA (18:32)
[2019-03-15] MEDS ORDERED: CALCIUM GLUCONATE 1 GM in SODIUM CHLORIDE 0.9% 100 ML IVPB ONE (18:45)
[2019-03-15] MEDS ORDERED: INSULIN REGULAR 100 UNIT/ML VIAL IV ONE (18:45)
[2019-03-15] MEDS ORDERED: FUROSEMIDE 10 MG/ML 4 ML VIAL IV ONE (20:30)
[2019-03-15] MEDS: INSULIN DETEMIR (LEVEMIR) 100 UNIT/ML SYR SQ SCH (20:47)
--- NOTE | 2019-03-15 20:49 | P.PN ---
Subjective Progress Note Date: 03/15/19 43-year-old male who has multiple medical troubles which includes diabetes mellitus type 2 for nearly 19 years has been poorly controlled with multiple complications that includes coronary artery disease. Patient is related to have had recent hospitalizations with cardiopulmonary arrest. He has an AICD that is in place. We have requested the nursing staff have patient sign release of information from his recent hospitalizations to further assess the events during. He now presents with an acute depression event with suicidal ideation. He has also been seen by neurology because of concerns to numbness and tingling on the right side of his body. He has developed significant hyponatremia which is why he was brought into the intensive care unit. The patient is overwhelmed at 18th anniversary of his son's passing. Infectious disease consultation requested with concerns to urinary tract infection. The patient did have urinary incontinence in the emergency center. 03/12/2019 the patient is feeling poorly. He continues to have discomfort in his chest. He has shortness of breath. Is following with psychiatry regarding his depression and suicidal ideation. Discharged he was working on placement to a medical psychiatric bed. 03/15/2019 the patient is feeling better he is been released from psychiatry for discharge. Objective - Vital Signs Vital signs: Vital Signs Temp 97.6 F 03/15/19 16:00 Pulse 68 03/15/19 16:00 Resp 16 03/15/19 16:00 BP 118/94 03/15/19 16:00 Pulse Ox 100 03/15/19 16:00 Intake & Output 03/15/19 03/15/19 03/16/19 06:59 18:59 06:59 Intake Total 10 140 Output Total 580 525 Balance -570 -385 Weight 108 kg 108 kg Intake: IV 10 140 0.9 Sodium Chloride 10 40 Aztreonam 2 gm In Sodium 100 Chloride 0.9% 100 ml @ 100 mls/hr IVPB Q8HR [facility] Rx#:[id number] Output: Urine 580 525 Other: Voiding Method Indwelling Catheter - Exam 43-year-old male who looks considerably older than his stated age states he feels poorly HEENT: Anicteric conjunctiva are pink and moist nasal mucosa grossly intact without significant lesions, there is no thrush. Dentition poor Neck: The neck is supple without significant lymphadenopathy or thyromegaly. Lungs: Basilar crackles Heart: Paced rhythm 2/6 systolic murmur left sternal border Abdomen: Positive bowel sounds soft and nontender without palpable masses or organomegaly. There was no guarding or rebound. Extremities: The upper extremities have excellent pulses they are symmetric, no significant petechiae or telangiectasia. No splinter hemorrhages were noted. Lower extremities have some generalized edema Neurologically patient is more interactive but still with depressed affect - Labs CBC & Chem 7: 03/15/19 06:05 03/15/19 16:50 Labs: Abnormal Lab Results - Last 24 Hours (Table) 03/14/19 03/15/19 03/15/19 Range/Units 20:26 06:05 06:05 RBC 4.13 L (4.30-5.90) m/uL Hgb 11.7 L (13.0-17.5) gm/dL Hct 34.3 L (39.0-53.0) % RDW 19.2 H (11.5-15.5) % Sodium 120 L (137-145) mmol/L Potassium 5.4 H (3.5-5.1) mmol/L Chloride 92 L (98-107) mmol/L Carbon Dioxide 18 L (22-30) mmol/L BUN 60 H (9-20) mg/dL POC Glucose (mg/dL) 154 H (75-99) mg/dL 03/15/19 Range/Units 16:50 RBC (4.30-5.90) m/uL Hgb (13.0-17.5) gm/dL Hct (39.0-53.0) % RDW (11.5-15.5) % Sodium 124 L (137-145) mmol/L Potassium 6.2 H* (3.5-5.1) mmol/L Chloride 96 L (98-107) mmol/L Carbon Dioxide 15 L (22-30) mmol/L BUN 61 H (9-20) mg/dL POC Glucose (mg/dL) (75-99) mg/dL Microbiology - Last 24 Hours (Table) 03/14/19 05:40 Urine Culture - Final Urine,Clean Catch Laboratory Results WBC 8.4 k/uL (3.8-10.6) 03/15/19 06:05 RBC 4.13 m/uL (4.30-5.90) L 03/15/19 06:05 Hgb 11.7 gm/dL (13.0-17.5) L 03/15/19 06:05 Hct 34.3 % (39.0-53.0) L 03/15/19 06:05 MCV 83.1 fL (80.0-100.0) D 03/15/19 06:05 MCH 28.3 pg (25.0-35.0) 03/15/19 06:05 MCHC 34.0 g/dL (31.0-37.0) 03/15/19 06:05 RDW 19.2 % (11.5-15.5) H 03/15/19 06:05 Plt Count 419 k/uL (150-450) 03/15/19 06:05 Neutrophils % 78 % 03/15/19 06:05 Neutrophils % (Manual) 86 % 03/12/19 05:46 Lymphocytes % 13 % 03/15/19 06:05 Lymphocytes % (Manual) 7 % 03/12/19 05:46 Monocytes % 3 % 03/15/19 06:05 Monocytes % (Manual) 7 % 03/12/19 05:46 Eosinophils % 3 % 03/15/19 06:05 Basophils % 2 % 03/15/19 06:05 Neutrophils # 6.5 k/uL (1.3-7.7) 03/15/19 06:05 Neutrophils # (Manual) 9.80 k/uL (1.3-7.7) H 03/12/19 05:46 Lymphocytes # 1.1 k/uL (1.0-4.8) 03/15/19 06:05 Lymphocytes # (Manual) 0.80 k/uL (1.0-4.8) L 03/12/19 05:46 Monocytes # 0.3 k/uL (0-1.0) 03/15/19 06:05 Monocytes # (Manual) 0.80 k/uL (0-1.0) 03/12/19 05:46 Eosinophils # 0.2 k/uL (0-0.7) 03/15/19 06:05 Basophils # 0.1 k/uL (0-0.2) 03/15/19 06:05 Nucleated RBCs 0 /100 WBC (0-0) 03/12/19 05:46 Manual Slide Review Performed 03/12/19 05:46 Hypochromasia Slight 03/15/19 06:05 Poikilocytosis Slight 03/15/19 06:05 Anisocytosis Slight 03/15/19 06:05 Microcytosis Slight 03/15/19 06:05 Sodium 124 mmol/L (137-145) L 03/15/19 16:50 Potassium 6.2 mmol/L (3.5-5.1) H* 03/15/19 16:50 Chloride 96 mmol/L (98-107) L 03/15/19 16:50 Carbon Dioxide 15 mmol/L (22-30) L 03/15/19 16:50 Anion Gap 13 mmol/L 03/15/19 16:50 BUN 61 mg/dL (9-20) H 03/15/19 16:50 Creatinine 1.00 mg/dL (0.66-1.25) 03/15/19 16:50 Est GFR (CKD-EPI)AfAm >90 (>60 ml/min/1.73 sqM) 03/15/19 16:50 Est GFR (CKD-EPI)NonAf >90 (>60 ml/min/1.73 sqM) 03/15/19 16:50 Glucose 79 mg/dL (74-99) 03/15/19 16:50 POC Glucose (mg/dL) 81 mg/dL (75-99) 03/15/19 16:28 POC Glu Hat And Cap Opener ID Candelaria Bravo 03/15/19 16:[address] Glu mg/dL 154 03/11/19 16:31 Hemoglobin A1c 7.0 % (4.0-6.0) H 03/11/19 16:31 Osmolality 267 mosm/kg (280-301) L 03/14/19 09:03 Plasma Lactic Acid [place] 1.8 mmol/L (0.7-2.0) 03/11/19 14:06 Calcium 8.9 mg/dL (8.4-10.2) 03/15/19 16:50 Total Bilirubin 0.7 mg/dL (0.2-1.3) 03/14/19 09:03 AST 50 U/L (17-59) 03/14/19 09:03 ALT 61 U/L (21-72) 03/14/19 09:03 Alkaline Phosphatase 187 U/L (38-126) H 03/14/19 09:03 Total Creatine Kinase 34 U/L (55-170) L 03/08/19 17:58 CK-MB (CK-2) 1.3 ng/mL (0.0-2.4) 03/08/19 17:58 CK-MB (CK-2) Rel Index 3.8 03/08/19 17:58 Troponin I 0.016 ng/mL (0.000-0.034) 03/10/19 19:01 Total Protein 5.8 g/dL (6.3-8.2) L 03/14/19 09:03 Albumin 3.3 g/dL (3.5-5.0) L 03/14/19 09:03 Urine Color Yellow 03/14/19 05:40 Urine Appearance Clear (Clear) 03/14/19 05:40 Urine pH 5.5 (5.0-8.0) 03/14/19 05:40 Ur Specific [place] 1.022 (1.001-1.035) 03/14/19 05:40 Urine Protein Trace (Negative) H 03/14/19 05:40 Urine Glucose (UA) Negative (Negative) 03/14/19 05:40 Urine Ketones Trace (Negative) H 03/14/19 05:40 Urine Blood Trace (Negative) H 03/14/19 05:40 Urine Nitrite Negative (Negative) 03/14/19 05:40 Urine Bilirubin Negative (Negative) 03/14/19 05:40 Urine Urobilinogen <2.0 mg/dL (<2.0) 03/14/19 05:40 Ur Leukocyte Esterase Small (Negative) H 03/14/19 05:40 Urine RBC 4 /hpf (0-5) 03/14/19 05:40 Urine WBC 22 /hpf (0-5) H 03/14/19 05:40 Urine WBC Clumps Occasional /hpf (None) H 03/14/19 05:40 Ur Squamous Epith Cells 1 /hpf (0-4) 03/14/19 05:40 Urine Bacteria Many /hpf (None) H 03/08/19 04:36 Hyaline Casts 42 /lpf (0-2) H 03/14/19 05:40 Urine Mucus Occasional /hpf (None) H 03/14/19 05:40 Urine Osmolality 515 mosm/kg (50-1400) 03/14/19 10:55 Ur Random Sodium <10 mmol/L 03/14/19 10:55 Urine Opiates Screen Not Detected (NotDetected) 03/08/19 04:36 Ur Oxycodone Screen Not Detected (NotDetected) 03/08/19 04:36 Urine Methadone Screen Not Detected (NotDetected) 03/08/19 04:36 Ur Propoxyphene Screen Not Detected (NotDetected) 03/08/19 04:36 Primidone 5.9 ug/mL (4-12) 03/11/19 16:31 Ur Barbiturates Screen Not Detected (NotDetected) 03/08/19 04:36 U Tricyclic Antidepress Not Detected (NotDetected) 03/08/19 04:36 Ur Phencyclidine Scrn Not Detected (NotDetected) 03/08/19 04:36 Ur Amphetamines Screen Not Detected (NotDetected) 03/08/19 04:36 U Methamphetamines Scrn Not Detected (NotDetected) 03/08/19 04:36 U Benzodiazepines Scrn Not Detected (NotDetected) 03/08/19 04:36 Urine Cocaine Screen Not Detected (NotDetected) 03/08/19 04:36 U Marijuana (THC) Screen Not Detected (NotDetected) 03/08/19 04:36 Microbiology Entire Visit 03/14/19 05:40 Urine,Clean Catch Urine Culture - Final Assessment and Plan (1) AICD (automatic cardioverter/defibrillator) present Current Visit: No Status: Acute Code(s): Z95.810 - PRESENCE OF AUTOMATIC (IMPLANTABLE) CARDIAC DEFIBRILLATOR SNOMED Code(s): 065778209 (2) Suicidal ideation Current Visit: No Status: Acute Priority: High Code(s): R45.851 - SUICIDAL IDEATIONS SNOMED Code(s): 8374277 (3) Systolic CHF, acute on chronic Current Visit: No Status: Acute Code(s): I50.23 - ACUTE ON CHRONIC SYSTOLIC (CONGESTIVE) HEART FAILURE SNOMED Code(s): 964395795 (4) Bacteriuria with pyuria Narrative/Plan: 43-year-old male with a very complex past medical history with multiple hospitalizations with notation of cardiopulmonary arrest and AICD has been placed. Presents to our facility with suicidal ideation. Initial workup reveals evidence of urinalysis that is quite abnormal with greater than 182 white blood cells many bacteria being seen. Urine culture is to be sent. Blood culture is pending. The white count is normal and he is not having fever. With his uncontrolled diabetes is under by single A1c of 9.8 on the last check urinary infection of concern. He has many ALLERGIES as noted and consequently azactam has been initiated. Possible further help direct her course of antibiotic therapy and we'll de-escalate as possible. 03/12/2019 the patient is a bit more interactive than yesterday. Cultures are process. Does have evidence of a gram-negative urinary tract infection and Azactam is being utilized for now with his multiple ALLERGIES. Is tolerating this well. Today without fever or chills. Blood glucoses are improved today. Await a medical psychiatric bed when available. 03/15/2019 the patient is feeling poorly but this is not new throughout his hospital stay. He denies shortness of breath or cough. He denies abdominal pain. He has been able to eat without nausea or emesis or diarrhea. He has no dysuria. No rashes. It appears the urine culture is negative. He has not had an adequate course of antibiotic therapy if there was a gram-negative urinary tract infection and the Azactam is discontinued. Current Visit: Yes Status: Acute Code(s): R82.71 - BACTERIURIA; R82.81 - SNOMED Code(s): 756462189
[2019-03-15 20:52] LABS: Glucose,Whole Blood 104 mg/dL (75-99)
[2019-03-16] MEDS ORDERED: INSULIN REGULAR 100 UNIT/ML VIAL IV ONE (00:47)
[2019-03-16] MEDS ORDERED: DEXTROSE 10 % IN WATER 250 ML IV STA (00:47)
[2019-03-16] MEDS ORDERED: SODIUM BICARB 8.4% 50 ML SYR (1 MEQ/ML) IV STA (00:48)
[2019-03-16] MEDS: PANTOPRAZOLE 40 MG TABLET PO SCH (05:21)
[2019-03-16] MEDS: HYDROmorphone 0.5 MG/0.5 ML SYRINGE IVP PRN ×2 (05:21→10:46)
[2019-03-16 05:26] LABS: Anisocytosis Slight; Basophils # (A) 0.1 k/uL (0-0.2); Basophils % (A) 1 %; Eosinophils # (A) 0.1 k/uL (0-0.7); Eosinophils % (A) 2 %; HCT 33.6 % (39.0-53.0); HGB 11.3 gm/dL (13.0-17.5); Hypochromasia Slight; Lymphocytes # (A) 0.5 k/uL (1.0-4.8); Lymphocytes % (A) 7 %; MCH 27.8 pg (25.0-35.0); MCHC 33.6 g/dL (31.0-37.0); MCV 82.8 fL (80.0-100.0); Mean Platelet Volume 6.2; Microcytosis Slight; Monocytes # (A) 0.2 k/uL (0-1.0); Monocytes % (A) 4 %; Neutrophils # (A) 5.5 k/uL (1.3-7.7); Neutrophils % (A) 86 %; Platelet Count 372 k/uL (150-450); Poikilocytosis Slight; RBC 4.05 m/uL (4.30-5.90); RDW 19.7 % (11.5-15.5); WBC 6.4 k/uL (3.8-10.6)
[2019-03-16 05:36] LABS: African American GFR (CKD) >90 (>60 ml/min/1.73 sqM); Anion Gap 7 mmol/L; Blood Urea Nitrogen 55 mg/dL (9-20); Calcium 8.9 mg/dL (8.4-10.2); Carbon Dioxide 27 mmol/L (22-30); Chloride 93 mmol/L (98-107); Potassium 4.5 mmol/L (3.5-5.1); Sodium 127 mmol/L (137-145)
[2019-03-16 05:59] LABS: Glucose 44 mg/dL (74-99)
[2019-03-16 06:11] LABS: Glucose,Whole Blood 51 mg/dL (75-99)
[2019-03-16 06:30] LABS: Glucose,Whole Blood 75 mg/dL (75-99)
[2019-03-16] MEDS: INSULIN ASPART (NovoLOG) 100 UNIT/ML VIAL SQ SCH (06:39)
[2019-03-16 08:13] VITALS: BP 117/78; PULSE 82; RESP 14; TEMP 98.2
[2019-03-16] MEDS: APIXABAN 5 MG TAB PO SCH (08:17)
[2019-03-16] MEDS: ARIPiprazole 5 MG TAB PO SCH (08:17)
[2019-03-16] MEDS: DULoxetine HCL 60 MG CAPSULE.DR PO SCH (08:18)
[2019-03-16] MEDS: METOPROLOL TARTRATE 25 MG TAB PO SCH (08:18)
[2019-03-16] MEDS: CLOPIDOGREL 75 MG TAB PO SCH (08:18)
[2019-03-16] MEDS: GABAPENTIN 100 MG CAP PO SCH (08:18)
[2019-03-16] MEDS: PRIMIDONE 50 MG TAB PO SCH (08:18)
[2019-03-16] MEDS: NON FORMULARY DRUG (Rosuvastatin 10 MG) PO SCH (08:19)
[2019-03-16] MEDS: SODIUM BICARBONATE TAB 650 MG TAB PO SCH (08:19)
[2019-03-16] MEDS: TAMSULOSIN 0.4 MG CAP.ER.24H PO SCH (08:19)
[2019-03-16 08:48] LABS: Glucose,Whole Blood 101 mg/dL (75-99)
[2019-03-16 08:48] LABS: Glucose,Whole Blood 88 mg/dL (75-99)
[2019-03-16] MEDS ORDERED: FUROSEMIDE 10 MG/ML 4 ML VIAL IV STA (10:56)
--- NOTE | 2019-03-16 10:57 | P.PN ---
Subjective Patient is seen in follow-up for hyponatremia. Sodium level 127 this morning. He did receive a dose of IV Lasix 40 mg last night and also received a dose of Samsca yesterday. He is nonoliguric. No vomiting or diarrhea. Does drink quite a bit of water. Vital signs are stable. General: The patient appeared well nourished and normally developed. HEENT: Head exam is unremarkable. Neck is without jugular venous distension. LUNGS: Breath sounds decreased. HEART: Rate and Rhythm are regular. First and second heart sounds normal. No murmurs, rubs or gallops. ABDOMEN: Abdominal exam reveals normal bowel sounds. Non-tender and non- distended. EXTREMITITES: No clubbing, cyanosis, or edema. Objective - Vital Signs Vital signs: Vital Signs Temp 98.2 F 03/16/19 08:00 Pulse 82 03/16/19 08:00 Resp 14 03/16/19 08:00 BP 117/78 03/16/19 08:00 Pulse Ox 96 03/16/19 04:00 Intake & Output 03/15/19 03/16/19 03/16/19 18:59 06:59 18:59 Intake Total 140 20 Output Total 525 1150 200 Balance -385 -1150 -180 Weight 108 kg 107.5 kg Intake: IV 140 20 0.9 Sodium Chloride 40 20 Aztreonam 2 gm In Sodium 100 Chloride 0.9% 100 ml @ 100 mls/hr IVPB Q8HR [facility] Rx#:[id number] Output: Urine 525 1150 200 Other: Voiding Method Indwelling Catheter Indwelling Catheter Indwelling Catheter - Labs CBC & Chem 7: 03/16/19 04:48 03/16/19 04:48 Labs: Abnormal Lab Results - Last 24 Hours (Table) 03/15/19 03/15/19 03/15/19 Range/Units 06:41 16:50 20:40 RBC (4.30-5.90) m/uL Hgb (13.0-17.5) gm/dL Hct (39.0-53.0) % RDW (11.5-15.5) % Lymphocytes # (1.0-4.8) k/uL Sodium 124 L (137-145) mmol/L Potassium 6.2 H* (3.5-5.1) mmol/L Chloride 96 L (98-107) mmol/L Carbon Dioxide 15 L (22-30) mmol/L BUN 61 H (9-20) mg/dL Glucose (74-99) mg/dL POC Glucose (mg/dL) 101 H 104 H (75-99) mg/dL 03/16/19 03/16/19 03/16/19 Range/Units 00:18 04:48 04:48 RBC 4.05 L (4.30-5.90) m/uL Hgb 11.3 L (13.0-17.5) gm/dL Hct 33.6 L (39.0-53.0) % RDW 19.7 H (11.5-15.5) % Lymphocytes # 0.5 L (1.0-4.8) k/uL Sodium 127 L (137-145) mmol/L Potassium 5.7 H (3.5-5.1) mmol/L Chloride 93 L (98-107) mmol/L Carbon Dioxide (22-30) mmol/L BUN 55 H (9-20) mg/dL Glucose 44 L* (74-99) mg/dL POC Glucose (mg/dL) (75-99) mg/dL 03/16/19 Range/Units 06:00 RBC (4.30-5.90) m/uL Hgb (13.0-17.5) gm/dL Hct (39.0-53.0) % RDW (11.5-15.5) % Lymphocytes # (1.0-4.8) k/uL Sodium (137-145) mmol/L Potassium (3.5-5.1) mmol/L Chloride (98-107) mmol/L Carbon Dioxide (22-30) mmol/L BUN (9-20) mg/dL Glucose (74-99) mg/dL POC Glucose (mg/dL) 51 L (75-99) mg/dL Microbiology - Last 24 Hours (Table) 03/14/19 05:40 Urine Culture - Final Urine,Clean Catch Assessment and Plan Plan: Assessment: 1. Hyponatremia. Slightly hypervolemic as chest x-ray suggestive of CHF. Also component of poor solute intake. Sodium level 127 today. Urine sodium less than 10 and urine osmolality 515. Status post Duong, on March 15. 2. Chronic systolic CHF with ejection fraction of 20-25% with moderate tricuspid regurgitation and pulmonary hypertension. 3. Depression. 4. Metabolic acidosis secondary to acute kidney injury. Better. 5. Mild acute kidney injury mostly prerenal. Resolved. 6. Mild hyperkalemia secondary to metabolic acidosis. Resolved. Plan: Lasix 40 mg IV once today. Resume home dose of Bumex starting tomorrow. Encourage oral intake. Ensure added. Repeat electrolytes this evening. Decrease dose of sodium bicarbonate. Patient will need repeat BMP and magnesium level checked in 2-3 days of discharge and follow up outpatient in the next 1-2 weeks. Strongly advised patient to maintain 60-70 ounces fluid restricted diet upon discharge.
[2019-03-16 11:56] LABS: Glucose,Whole Blood 173 mg/dL (75-99)
--- NOTE | 2019-03-16 14:55 | P.DS ---
Providers Date of admission: 03/09/19 11:36 Attending physician: Safia Clay Consults: 03/08/19 06:41 Consult Physician Stat Consulting Provider: Bharat Huff Consult Reason/Comments: depression Do you want consulting provider notified?: Already Contacted 03/08/19 08:04 Consult Physician Routine Consulting Provider: Ray Kang Consult Reason/Comments: chest pain Do you want consulting provider notified?: Yes 03/09/19 11:19 Consult Physician Stat Consulting Provider: Ray Kang Consult Reason/Comments: chest pain Do you want consulting provider notified?: Yes 03/11/19 12:44 Consult Physician Stat Consulting Provider: Dilma Vasquez Consult Reason/Comments: right side facial numbness and weakness Do you want consulting provider notified?: Yes 03/11/19 13:39 Consult Physician Stat Consulting Provider: Gordon Platt Consult Reason/Comments: possible UTI sepsis Do you want consulting provider notified?: Yes 03/11/19 22:58 Consult Physician Stat Consulting Provider: Xavier Valerio Consult Reason/Comments: ICU managment Do you want consulting provider notified?: Yes, Notify in am 03/13/19 10:42 Consult Physician Stat Consulting Provider: Bharat Huff Consult Reason/Comments: Treatment of continued depression and suicidal ideation. New assessment Do you want consulting provider notified?: Yes 03/14/19 08:55 Consult Physician Urgent Consulting Provider: Jovan Dangelo Consult Reason/Comments: decreased sodium Do you want consulting provider notified?: Yes Primary care physician: [facility] Course: Final diagnosis Congestive heart failure, acute exacerbation with acute on chronic systolic dysfunction. Chest pain, unstable angina History of coronary artery disease with multiple stents in the past History of suicidal ideation Hyponatremia possibly hypovolemic in nature Hypertension Hyperlipidemia History of diabetes mellitus type 2 History of diabetic peripheral neuropathy History of deep vein thrombosis History of gastroesophageal reflux disease history of obesity Sleep apnea History of anemia Mild hyperkalemia Depression Atrial fibrillation, chronic, rate controlled with severe coronary disease with multiple stents Renal failure possibly mild acute renal failure with acute prerenal acute tubular necrosis Discharge disposition Patient is being discharged in a stable condition with an extremely guarded prognosis to home and will follow-up with primary care provider upon discharge. Patient will also be following up with nephrology Dr. Dangelo in the outpatient setting in 1-2 weeks. Total time taken is 35 minutes. History of present illness This is a 43-year-old male who was recently admitted for suicidal ideation and was being closely monitored. Patient has an extensive cardiac history and during hospitalization patient reported severe chest pain and patient was transferred to the ICU for close monitoring. During hospitalization patient was found to be hyponatremic and nephrology was consulted. Nephrology was following closely. Current sodium today is 127 and will be going home on sodium bicarb and will resume his Bumex tomorrow. Patient will follow-up with nephrology in the outpatient setting in 1-2 weeks. Patient will need repeat labs in 2-3 days for recheck on his sodium level. Patient will need to follow-up with his primary care provider upon discharge. Discussed with the patient at length and stress the importance of restricting fluid to 60-70 mL per day. During hospitalization patient was seen by psychiatry for suicidal ideations and they medhat vasquez made recommendations for possible transfer to a [facility] psych facility that would accept him given his extensive multiple medical issues. Patient was followed by psychiatry and cleared for discharge to home. Medication adjustments have been made by psychiatry. Currently patient's condition is stable and he states he would like to go home today. Patient continues to have chest pain that is intermittent but denies any shortness of breath or palpitations at this time. Patient is afebrile. Patient denies any nausea or vomiting and is tolerating diet. Stressed with the patient at length about encouraging oral intake and restricting his fluids. This was also discussed with family. Extremely guarded prognosis. On exam vital signs are stable. Temp is 98.2F, pulse is 82, respirations are 14, blood pressure is 117/78, oxygen saturation is 96% on room air. Cardio S1 and S2 are muffled. Respiratory system shows diminished breath sounds at the bases with no wheezing or crackles noted. Abdomen is soft, obese, nontender. Nervous system shows no focal deficits. Please refer to medication reconciliation sheet for a list of medications. Patient Condition at Discharge: Stable Plan - Discharge Summary Discharge Rx Participant: Yes New Discharge Prescriptions: New ARIPiprazole [Abilify] 2.5 mg PO DAILY 30 Days #30 tab Metoprolol Tartrate [Lopressor] 25 mg PO BID 30 Days #60 tab Sodium Bicarbonate Tab 650 mg PO DAILY 30 Days #30 tab traMADol HCl [Ultram] 50 mg PO QID PRN #12 tab PRN Reason: Pain Continue Pantoprazole [Protonix] 40 mg PO DAILY Nitroglycerin Sl Tabs [Nitrostat] 0.4 mg SUBLINGUAL Q5M PRN PRN Reason: Chest Pain Tamsulosin HCl [Flomax] 0.4 mg PO DAILY Clopidogrel [Plavix] 75 mg PO DAILY Apixaban [Eliquis] 5 mg PO BID Insulin Glargine [Lantus] 30 units SQ HS Gabapentin [Neurontin] 100 mg PO TID DULoxetine HCL [Cymbalta] 60 mg PO BID Albuterol Sulfate [Ventolin HFA] 2 puff INHALATION RT-Q6H PRN PRN Reason: Wheezing Bumetanide [BUMEX] 2 mg PO DAILY Rosuvastatin [Crestor] 10 mg PO DAILY Primidone [Mysoline] 100 mg PO BID Discontinued Methocarbamol [Robaxin] 500 mg PO QID Carvedilol [Coreg] 3.125 mg PO BID Spironolactone [Aldactone] 25 mg PO DAILY Lisinopril [Zestril] 5 mg PO DAILY Discharge Medication List Pantoprazole [Protonix] 40 mg PO DAILY 04/01/18 [History] Nitroglycerin Sl Tabs [Nitrostat] 0.4 mg SUBLINGUAL Q5M PRN 11/08/18 [History] Tamsulosin HCl [Flomax] 0.4 mg PO DAILY 11/08/18 [History] Apixaban [Eliquis] 5 mg PO BID 02/27/19 [History] Clopidogrel [Plavix] 75 mg PO DAILY 02/27/19 [History] Albuterol Sulfate [Ventolin HFA] 2 puff INHALATION RT-Q6H PRN 03/08/19 [History] Bumetanide [BUMEX] 2 mg PO DAILY 03/08/19 [History] DULoxetine HCL [Cymbalta] 60 mg PO BID 03/08/19 [History] Gabapentin [Neurontin] 100 mg PO TID 03/08/19 [History] Insulin Glargine [Lantus] 30 units SQ HS 03/08/19 [History] Primidone [Mysoline] 100 mg PO BID 03/08/19 [History] Rosuvastatin [Crestor] 10 mg PO DAILY 03/08/19 [History] ARIPiprazole [Abilify] 2.5 mg PO DAILY 30 Days #30 tab 03/16/19 [Rx] Metoprolol Tartrate [Lopressor] 25 mg PO BID 30 Days #60 tab 03/16/19 [Rx] Sodium Bicarbonate Tab 650 mg PO DAILY 30 Days #30 tab 03/16/19 [Rx] traMADol HCl [Ultram] 50 mg PO QID PRN #12 tab 03/16/19 [Rx] Follow up Appointment(s)/Referral(s): [facility], [NON-STAFF] - 1-2 Days (This is the contact information for Home Care and [facility]) Junie New MD [Primary Care Provider] - 1-2 days (03/16/19 02:00 pm ) Jovan Dangelo DO [STAFF PHYSICIAN] - 1 Week (04/28/19 01:40) Ambulatory/Diagnostic Orders: Basic Metabolic Panel [LAB.AMB] Time Frame: 3 Days, Location: None Selected Patient Instructions/Handouts: Depression (DC), Diabetic Hyperglycemia (DC) Activity/Diet/Wound Care/Special Instructions: Activity Limited until follow-up Follow-up with primary care provider upon discharge Follow-up with nephrology in 1-2 weeks Continue Bumex Continue sodium bicarb daily FLUID restrictions of 60-70 mL daily Repeat labs in 2-3 days Discharge Disposition: HOME WITH HOME HEALTH SERVICES
[2019-03-17] MEDS ORDERED: SODIUM BICARBONATE TAB 650 MG TAB PO SCH (09:00)
--- NOTE | 2019-03-18 10:11 | CDI ---
Documentation Clarification Form Date: 03/18/2019 8:44:00 AM From: Amanda Chan Phone: If you have a question about this query, please contact Sabrina Hurst, Photo Machine Operator at [phone] between 8am and 5pm. Admit Date: 03/09/2019 11:36:00 AM Patient Name: Ti Dunham Visit Number: [id number] Discharge Date: 03/16/2019 1:33:00 PM ATTENTION: The Clinical Documentation Specialists (CDI) and [facility] Coding Staff appreciate your assistance in clarifying documentation. Please respond to the clarification below the line at the bottom and electronically sign. The CDI & [facility] Coding staff will review the response and follow-up if needed. Please note: Queries are made part of the Legal Health Record. If you have any questions, please contact the author of this message via ITS. Dr. Safia Clay Patient developed right sided facial, leg, arm numbness. Neurology consult documents that this could be thalamic lacunar stroke due to uncontrolled DM. Possible cardiembolic event . Please clarify if patient had stroke or was it ruled out. History/risk factors: uncontrolled DM with PN. CHF HTN hyponatremia Clinical Indicators: numbness right side CT: cerebral atrophy for age In your professional opinion, please clarify each of the following: CVA ruled out If CVA please specivy type: Stenosis/Occlusion Embolic Thrombolytic Hypertension Other (please specify) Unable to Determine Laterality: Left Right Bilateral Other (please specify) Unable to Determine CVA ruled out MTDD
== END 2019-03-16 13:33 | disposition home health service (06) | DRG 640 ==
LOC: EC 02:33 → 4SSUR 06:41 → 3SCARD 07:51 → 4MS4W 19:42 → OBSVTOIN 03-09 11:36 → 2SICU 03-09 11:38 → 3SCARD 03-11 18:22 → 2SICU 03-11 23:44
PROVIDERS: ADMIT Hospitalist; ATTEND Hospitalist
DX: E87.1 Hypo-osmolality and hyponatremia (principal); I50.23 Acute on chronic systolic (congestive) heart failure; N17.0 Acute kidney failure with tubular necrosis; F33.2 Major depressive disorder, recurrent severe without psychotic features; I25.110 Atherosclerotic heart disease of native coronary artery with unstable angina pectoris; I48.20 Chronic atrial fibrillation, unspecified; N39.0 Urinary tract infection, site not specified; R18.8 Other ascites; E11.42 Type 2 diabetes mellitus with diabetic polyneuropathy; E11.65 Type 2 diabetes mellitus with hyperglycemia; E11.43 Type 2 diabetes mellitus with diabetic autonomic (poly)neuropathy; K31.84 Gastroparesis; Z79.4 Long term (current) use of insulin; D64.9 Anemia, unspecified; E66.9 Obesity, unspecified; Z68.38 Body mass index [BMI] 38.0-38.9, adult; E78.5 Hyperlipidemia, unspecified; E86.1 Hypovolemia; E87.2 Acidosis; E87.5 Hyperkalemia; F43.10 Post-traumatic stress disorder, unspecified; Z63.4 Disappearance and death of family member; G47.33 Obstructive sleep apnea (adult) (pediatric); I08.1 Rheumatic disorders of both mitral and tricuspid valves; I11.0 Hypertensive heart disease with heart failure; I25.2 Old myocardial infarction; I25.5 Ischemic cardiomyopathy; I27.20 Pulmonary hypertension, unspecified; J45.909 Unspecified asthma, uncomplicated; K21.9 Gastro-esophageal reflux disease without esophagitis; R32 Unspecified urinary incontinence; T50.2X5A Adverse effect of carbonic-anhydrase inhibitors, benzothiadiazides and other diuretics, initial encounter; Z79.01 Long term (current) use of anticoagulants; Z79.02 Long term (current) use of antithrombotics/antiplatelets; Z79.82 Long term (current) use of aspirin; Z79.899 Other long term (current) drug therapy; Z82.0 Family history of epilepsy and other diseases of the nervous system; Z82.49 Family history of ischemic heart disease and other diseases of the circulatory system; Z83.3 Family history of diabetes mellitus; Z86.711 Personal history of pulmonary embolism; Z86.718 Personal history of other venous thrombosis and embolism; Z86.73 Personal history of transient ischemic attack (TIA), and cerebral infarction without residual deficits; Z86.74 Personal history of sudden cardiac arrest; Z91.19 Patient's noncompliance with other medical treatment and regimen; Z95.5 Presence of coronary angioplasty implant and graft; Z95.810 Presence of automatic (implantable) cardiac defibrillator; F10.11 Alcohol abuse, in remission; Z88.8 Allergy status to other drugs, medicaments and biological substances; Z88.6 Allergy status to analgesic agent; Z88.1 Allergy status to other antibiotic agents; Z91.041 Radiographic dye allergy status; Z88.5 Allergy status to narcotic agent; Z88.0 Allergy status to penicillin; Z91.013 Allergy to seafood; R20.0 Anesthesia of skin; Z91.5 Personal history of self-harm; Z87.01 Personal history of pneumonia (recurrent); Z87.440 Personal history of urinary (tract) infections; G89.29 Other chronic pain; M54.9 Dorsalgia, unspecified; B96.89 Other specified bacterial agents as the cause of diseases classified elsewhere
CPT/HCPCS: 36415; 70450; 71045; 71046; 80048; 80053; 80188; 80306; 81001; 82075; 82550; 82553; 83036; 83605; 83930; 83935; 84132; 84300; 84484; 85025; 85027; 87086; 93005; 96374; 99285

== ENCOUNTER 2019-03-19 03:31 | Inpatient (IN) | payer MEDICARE, OTHER ==
--- NOTE | 2019-03-19 03:51 | ED ---
Chest Pain HPI - General Chief Complaint: Chest Pain Stated Complaint: Chest Pain/SOB Time Seen by Provider: 03/19/19 03:44 Source: patient Mode of arrival: wheelchair Limitations: no limitations - History of Present Illness MD Complaint: chest pain Onset/Timin -: hour(s) Onset: during rest, awoke with symptoms Pain Location: left chest Pain Radiation: none Severity: moderate Quality: heaviness Consistency: constant Improves With: nothing Worsens With: nothing Anginal Symptoms: nausea Treatments Prior to Arrival: none - Related Data Home Medications Medication Instructions Recorded Confirmed Pantoprazole [Protonix] 40 mg PO DAILY 04/01/18 03/19/19 Nitroglycerin Sl Tabs [Nitrostat] 0.4 mg SUBLINGUAL Q5M PRN 11/08/18 03/19/19 Tamsulosin HCl [Flomax] 0.4 mg PO DAILY 11/08/18 03/19/19 Apixaban [Eliquis] 5 mg PO BID 02/27/19 03/19/19 Clopidogrel [Plavix] 75 mg PO DAILY 02/27/19 03/19/19 Albuterol Sulfate [Ventolin HFA] 2 puff INHALATION RT-Q6H PRN 03/08/19 03/19/19 Bumetanide [BUMEX] 2 mg PO DAILY 03/08/19 03/19/19 DULoxetine HCL [Cymbalta] 60 mg PO BID 03/08/19 03/19/19 Gabapentin [Neurontin] 100 mg PO TID 03/08/19 03/19/19 Insulin Glargine [Lantus] 30 units SQ HS 03/08/19 03/19/19 Primidone [Mysoline] 100 mg PO BID 03/08/19 03/19/19 Rosuvastatin [Crestor] 10 mg PO DAILY 03/08/19 03/19/19 Previous Rx's Medication Instructions Recorded ARIPiprazole [Abilify] 2.5 mg PO DAILY 30 Days #30 tab 03/16/19 Metoprolol Tartrate [Lopressor] 25 mg PO BID 30 Days #60 tab 03/16/19 Sodium Bicarbonate Tab 650 mg PO DAILY 30 Days #30 tab 03/16/19 traMADol HCl [Ultram] 50 mg PO QID PRN #12 tab 03/16/19 Allergies Allergy/AdvReac Type Severity Reaction Status Date / Time erythromycin base Allergy Severe Rash/Hives Verified 03/19/19 08:40 [Erythromycin Base] cephalexin monohydrate Allergy Unknown Rash/Hives Verified 03/19/19 08:40 [From Keflex] codeine Allergy Unknown Unknown Verified 03/19/19 08:40 meclizine Allergy Unknown Unknown Verified 03/19/19 08:40 Penicillins Allergy Unknown Rash/Hives Verified 03/19/19 08:40 shellfish derived Allergy Unknown Anaphylaxis Verified 03/19/19 08:40 adhesive tape Allergy Rash/Hives Verified 03/19/19 08:40 Fish Containing Products Allergy Anaphylaxis Verified 03/19/19 08:40 [Fish] Iodinated Contrast Media Allergy Anaphylaxis Verified 03/19/19 08:40 silver Allergy Rash/Hives Verified 03/19/19 08:40 [From Tegaderm AG Mesh] naproxen AdvReac Unknown Compromises Verified 03/19/19 08:40 Kidney Function atorvastatin calcium AdvReac Myalgia Verified 03/19/19 08:40 [From Lipitor] hydrocodone [From [place]] AdvReac Rapid Verified 03/19/19 08:40 Heart Rate Review of Systems ROS Statement: Those systems with pertinent positive or pertinent negative responses have been documented in the HPI. ROS Other: All systems not noted in ROS Statement are negative. Constitutional: Denies: fever, chills Respiratory: Denies: cough, dyspnea Cardiovascular: Reports: chest pain, edema (Chronic). Denies: palpitations, syncope Gastrointestinal: Reports: nausea. Denies: abdominal pain, vomiting, diarrhea, melena, hematochezia Genitourinary: Denies: dysuria, hematuria Musculoskeletal: Denies: back pain Skin: Denies: rash Neurological: Denies: headache, weakness, numbness EKG Findings - EKG Comments: EKG Findings:: 12-lead ECG appears to show a paced rhythm rate approximately 110 bpm, with right superior axis deviation. There is pulmonary disease pattern. Previous septal infarct. - EKG Results: EKG: interpreted by ERMD EKG shows: tachycardia (Rate approximately 110 bpm) - Blocks, Rumsey, Hypertrophy, ST Abn: QRS axis and voltage: right axis deviation (+90 to +180) Past Medical History Past Medical History: Asthma, Coronary Artery Disease (CAD), Chest Pain / Angina, Heart Failure, CVA/TIA, Diabetes Mellitus, Deep Vein Thrombosis (DVT), GERD/Reflux, Hyperlipidemia, Hypertension, Myocardial Infarction (KS), Osteoarthritis (OA), Pneumonia, Skin Disorder, Sleep Apnea/CPAP/BIPAP Additional Past Medical History / Comment(s): multiple vessel CAD, ischemic cardiomyopathy, diabetic neuropathy bilateral hands and feet, hypertensive cardiovascular disease, SHELIA with no device, chronic gastritis, degenerative disc disease, chronic back pain, depression with hx of suicide attempts, gastroparesis, psoriasis, UTI, migraines, TIA, PUD, hiatal hernia, L rotator cuff tear, bronchitis, pseudoaneurysm L groin post procedure. 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 Last Myocardial Infarction Date:: October 2017 History of Any Multi-Drug Resistant Organisms: MRSA Date of last positivie culture/infection: 11/05/17 (Culture done at [facility]) MDRO Source:: legs Past Surgical History: AICD, Appendectomy, Cholecystectomy, Heart Catheterization With Stent, Hernia Repair Additional Past Surgical History / Comment(s): Pt has had multiple cardiac procedures- caths/stents/PTCA, last stent placed at [facility] -October2017, SAVANNAH, R inguinal hernia repair, umbilical hernia repair, 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 Date of Last Stent Placement:: 10/2018 Type of Cardiac Device: Biventricular Pacemaker, AICD Device Placement Date:: 09/19/15 Past Psychological History: Anxiety, Depression, PTSD Smoking Status: Never smoker Past Alcohol Use History: None Reported Past Drug Use History: None Reported - Past Family History Mother Family Medical History: Coronary Artery Disease (CAD), Myocardial Infarction (KS) Additional Family Medical History / Comment(s): 7 KS and faulty heart valve. Pt does not know the age when mother had her KS's. Father History Unknown: Yes Additional Family Medical History / Comment(s): Does not know who father is. Brother(s) Family Medical History: Cancer, Congestive Heart Failure (CHF), Myocardial Infarction (KS) Additional Family Medical History / Comment(s): Parkinsons. Pt does not know at what age his brother had an KS. Patient's other brother has lung CA Patient has Family Medical History: No Reported History Additional Family Medical History / Comment(s): There is a strong family history for heart disease, hypertension, and diabetes. General Exam Limitations: no limitations General appearance: alert, in no apparent distress Head exam: Present: atraumatic, normocephalic Eye exam: Present: normal appearance. Absent: scleral icterus, conjunctival injection ENT exam: Present: normal oropharynx Respiratory exam: Present: normal lung sounds bilaterally. Absent: respiratory distress, wheezes, rales, rhonchi, stridor Cardiovascular Exam: Present: normal rhythm, tachycardia, normal heart sounds. Absent: systolic murmur, diastolic murmur, rubs, gallop GI/Abdominal exam: Present: soft. Absent: distended, tenderness, guarding, rebound, rigid, mass Extremities exam: Present: normal inspection, normal capillary refill, pedal edema (There is pitting edema bilaterally to the mid tibial area). Absent: calf tenderness Back exam: Present: normal inspection Neurological exam: Present: alert Skin exam: Present: warm, dry, intact, normal color. Absent: rash Course Vital Signs 03/19/19 03/19/19 03/19/19 03:35 03:43 05:35 Temperature 97.8 F Pulse Rate 107 H 111 H Pulse Rate [ 109 H [employer] ] Respiratory 20 20 Rate Blood Pressure 120/75 132/110 Blood Pressure [Left Arm] O2 Sat by Pulse 100 96 Oximetry 03/19/19 03/19/19 03/19/19 06:15 09:00 11:33 Temperature 98.3 F 97.6 F 97.1 F L Pulse Rate 110 H Pulse Rate [ 105 H 109 H [employer] ] Respiratory 18 18 16 Rate Blood Pressure 124/96 Blood Pressure 106/73 125/92 [Left Arm] O2 Sat by Pulse 94 L 98 97 Oximetry Disposition Clinical Impression: Chest pain Disposition: ADMITTED IP TO THIS HOSP Condition: Poor
[2019-03-19 04:06] LABS: Anisocytosis Moderate; Basophils % (A) 1 %; Eosinophils # (A) 0.1 k/uL (0-0.7); Eosinophils % (A) 2 %; HCT 40.3 % (39.0-53.0); HGB 12.3 gm/dL (13.0-17.5); Hypochromasia Moderate; Lymphocytes # (A) 0.8 k/uL (1.0-4.8); Lymphocytes % (A) 16 %; MCH 26.9 pg (25.0-35.0); MCHC 30.6 g/dL (31.0-37.0); Mean Platelet Volume 6.8; Monocytes # (A) 0.2 k/uL (0-1.0); Monocytes % (A) 4 %; Neutrophils % (A) 76 %; Platelet Count 273 k/uL (150-450); Poikilocytosis Slight; RBC 4.58 m/uL (4.30-5.90); RDW 20.4 % (11.5-15.5); WBC 5.3 k/uL (3.8-10.6)
[2019-03-19] MEDS ORDERED: MORPHINE SULFATE 4 MG/ML SYRINGE IV STA ×2 (04:12→05:27)
[2019-03-19 04:14] LABS: ALT 54 U/L (21-72); AST 34 U/L (17-59); African American GFR (CKD) >90 (>60 ml/min/1.73 sqM); Albumin 3.8 g/dL (3.5-5.0); Alkaline Phosphatase 225 U/L (38-126); Anion Gap 12 mmol/L; Blood Urea Nitrogen 17 mg/dL (9-20); Calcium 9.3 mg/dL (8.4-10.2); Carbon Dioxide 23 mmol/L (22-30); Chloride 93 mmol/L (98-107); Glucose 174 mg/dL (74-99); Magnesium 1.9 mg/dL (1.6-2.3); Partial Thromboplastin Time 23.3 sec (22.0-30.0); Prothrombin Time 10.9 sec (9.0-12.0); Sodium 128 mmol/L (137-145); Total Bilirubin 0.9 mg/dL (0.2-1.3); Total Protein 6.4 g/dL (6.3-8.2)
--- NOTE | 2019-03-19 04:16 | XR ---
EXAMINATION TYPE: XR chest 1V portable DATE OF EXAM: 03/19/2019 COMPARISON: 03/14/2019 HISTORY: Chest pain TECHNIQUE: Single frontal view of the chest is obtained. FINDINGS: Heart is enlarged. There is mild pulmonary vascular congestion. There is blunting right co stophrenic angle and mild infiltrate right lung base. There is a left axillary pacemaker. IMPRESSION: There is evidence of mild congestive heart failure. There is increasing right pleural fl uid and right basilar infiltrate compared to last exam.
[2019-03-19] MEDS ORDERED: ONDANSETRON 4 MG/2 ML VIAL IVP STA (04:20)
[2019-03-19] MEDS ORDERED: SODIUM CHLORIDE 0.9% 500 ML 500 ML IV STA (04:21)
[2019-03-19 04:25] LABS: MCV 87.8 fL (80.0-100.0)
[2019-03-19] MEDS ORDERED: NITROGLYCERIN SL TABS 0.4 MG TAB SUBLINGUAL PRN (05:28)
[2019-03-19] MEDS ORDERED: HYDROmorphone 0.5 MG/0.5 ML SYRINGE IVP STA (09:28)
[2019-03-19] MEDS ORDERED: ALBUTEROL NEBULIZED 2.5 MG/3 ML INHALATION PRN (09:43)
[2019-03-19] MEDS: ACETAMINOPHEN TAB 325 MG TAB PO PRN (09:50)
[2019-03-19] MEDS: CLOPIDOGREL 75 MG TAB PO SCH (10:53)
[2019-03-19] MEDS: DULoxetine HCL 60 MG CAPSULE.DR PO SCH ×2 (10:53→20:49)
[2019-03-19] MEDS: PRIMIDONE 50 MG TAB PO SCH ×2 (10:53→20:49)
[2019-03-19] MEDS: ARIPiprazole 5 MG TAB PO SCH (10:53)
[2019-03-19] MEDS: TAMSULOSIN 0.4 MG CAP.ER.24H PO SCH (10:53)
[2019-03-19] MEDS: SODIUM BICARBONATE TAB 650 MG TAB PO SCH (10:53)
[2019-03-19] MEDS: BUMETANIDE 1 MG TAB PO SCH (10:54)
[2019-03-19] MEDS: ROSUVASTATIN PO SCH (10:54)
[2019-03-19] MEDS: METOPROLOL TARTRATE 25 MG TAB PO SCH ×2 (10:54→20:49)
[2019-03-19] MEDS: GABAPENTIN 100 MG CAP PO SCH ×3 (11:30→21:00)
[2019-03-19] MEDS: APIXABAN 5 MG TAB PO SCH ×2 (11:31→20:49)
[2019-03-19 12:05] LABS: Glucose,Whole Blood 141 mg/dL (75-99)
[2019-03-19] MEDS: INSULIN ASPART (NovoLOG) 100 UNIT/ML VIAL SQ SCH ×3 (12:15→20:49)
--- NOTE | 2019-03-19 13:47 | P.CRDCN ---
History of Present Illness Consult date: 03/19/19 Consult reason: chest pain History of present illness: This is a 43-year-old male with known history of coronary artery disease and multivessel PCI, PE a cardiac arrest, ischemic cardiomyopathy status post biventricular AICD implant, hyperlipidemia, prior myocardial infarction, hypertension, prior CVA, and diabetes, depression, DVT and prior PE in the past. Patient follows with a release engineer at [facility]. He had a recent hospitalization March 04 through the which time he was treated for acute on chronic systolic heart failure. Patient states that he did well initially at home until he was sleeping and woke up with left-sided chest pain that started last evening. He states it woke right up from sleep. He states he had nausea and dry heaves and a little shortness of breath as well as sweats. He came into [facility] emergency center for evaluation. EKG is a paced rhythm. Blood pressure was 120/75 but repeat 132/110 and heart rate 111, pulse ox 96% on room air. White count was normal at 5.3, hemoglobin 12.3, platelet count 273. Sodium was 128, BUN 17 and creatinine 0.73. Troponin 0.044, 0.039. Patient was given IV fluids, Zofran, morphine and Dilaudid. Patient states his pain is better at this time but is starting to come back. He states that Dilaudid is what helped him. Most recent echocardiogram done in 12/11/2018 was EF less than 20%, moderate to severe tricuspid regurgitation, mild pulmonary hypertension, RVSP 36.89. Review Of Systems: Constitutional: No fever, no chills, no night sweats. No weight change. No weakness, fatigue or lethargy. No daytime sleepiness. EENT: No headache. No blurred vision or double vision, no loss of vision. No loss of Hearing, no ringing in the ears, no dizziness. No nasal drainage or congestion. No epistaxis. No sore throat. Lungs: Reports shortness of breath, cough, no sputum production. No wheezing. Cardiovascular: Reports chest pain, no lower extremity edema. No palpitations. No paroxysmal nocturnal dyspnea. No orthopnea. No lightheadedness or dizziness. No syncopal episodes. Abdominal: No abdominal pain. Reports nausea, reports dry heaves. No diarrhea. No constipation. No bloody or tarry stools. No loss of appetite. Genitourinary: No dysuria, increased frequency, urgency. No urinary retention. Musculoskeletal: No myalgias. No muscle weakness, no gait dysfunction, no frequent falls. No back pain. No neck pain. Integumentary: No wounds, no lesions. No rash or pruritus. No unusual brui sing. No change in hair or nails. Neurologic: No aphasia. No facial droop. No change in mentation. No head injury. No headache. No paralysis. No paresthesia. Psychiatric: No depression. No anxiety. No mood swings. Endocrine: No abnormal blood sugars. No weight change. No excessive sweating or thirst. No cold intolerance. No weight change. Gen: This is a obese 43-year-old male. He is resting on the ER stretcher and appears to be comfortable and in no acute distress. No respir atory distress is noted. HEENT: Head is atraumatic, normocephalic. Pupils equal, round. Sclerae is a nicteric. NECK: Supple. No JVD. No lymphadenopathy. No thyromegaly. LUNGS: Clear to auscultation. No wheezes or rhonchi. No intercostal retractions. HEART: Regular rate and rhythm. Systolic murmur. ABDOMEN: Soft. Bowel sounds are present. No masses. No tenderness. EXTREMITIES: No pedal edema. No calf tenderness. NEUROLOGICAL: Patient is awake, alert and oriented x3. Cranial nerves 2 through 12 are grossly intact. Assessment: Chest pain with mild elevation in troponins History of coronary artery disease with multivessel PCI History of pulmonary embolism and cardiac arrest Ischemic cardiomyopathy status post biventricular AICD implant Hyperlipidemia Hypertension Prior myocardial infarction History of CVA Diabetes Plan: Repeat 1 more troponin Continue Plavix 75 mg daily, aspirin 81 mg daily, eliquis 5 mg twice daily, Lopressor 25 mg twice daily and Crestor Further recommendations to follow based upon clinical course Thank you kindly for this consultation Nurse practitioner note has been reviewed, I agree with documented findings and plan of care. Patient was seen and examined. Past Medical History Past Medical History: Asthma, Coronary Artery Disease (CAD), Chest Pain / Angina, Heart Failure, CVA/TIA, Diabetes Mellitus, Deep Vein Thrombosis (DVT), GERD/Reflux, Hyperlipidemia, Hypertension, Myocardial Infarction (OR), Osteoa rthritis (OA), Pneumonia, Skin Disorder, Sleep Apnea/CPAP/BIPAP Additional Past Medical History / Comment(s): multiple vessel CAD, ischemic cardiomyopathy, diabetic neuropathy bilateral hands and feet, hypertensive cardiovascular disease, SHELIA with no device, chronic gastritis, degenerative disc disease, chronic back pain, depression with hx of suicide attempts, gastropares is, psoriasis, UTI, migraines, TIA, PUD, hiatal hernia, L rotator cuff tear, bronchitis, pseudoaneurysm L groin post procedure. 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 Last Myocardial Infarction Date:: October 2017 History of Any Multi-Drug Resistant Organisms: MRSA Date of last positivie culture/infection: 11/05/17 (Culture done at [facility]) MDRO Source:: legs Past Surgical History: AICD, Appendectomy, Cholecystectomy, Heart Catheterization With Stent, Hernia Repair Additional Past Surgical History / Comment(s): Pt has had multiple cardiac procedures- caths/stents/PTCA, last stent placed at [facility] -October2017, SAVANNAH, R inguinal hernia repair, umbilical hernia repair, 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 Date of Last Stent Placement:: 10/2018 Type of Cardiac Device: Biventricular Pacemaker, AICD Device Placement Date:: 09/19/15 Past Psychological History: Anxiety, Depression, PTSD Additional Psychological History / Comment(s): Several suicide attempts with use of insulin. PTSD - in 2000 his 3mo old son in his arms (born 2 months premature). He has a walker at home if needed. He drives.pt has 2 adult stepchildren at home with him most of the time. Spouse manages his medications. Smoking Status: Never smoker Past Alcohol Use History: None Reported Additional Past Alcohol Use History / Comment(s): Past alcohol abuse - pt states he quit drinking over 8yrs ago. Past Drug Use History: None Reported Additional Drug Use History / Comment(s): Pt has smoked marijuana in the past - last smoked in 1999. - Past Family History Mother Family Medical History: Coronary Artery Disease (CAD), Myocardial Infarction (OR) Additional Family Medical History / Comment(s): 7 OR and faulty heart valve. Pt does not know the age when mother had her OR's. Father History Unknown: Yes Additional Family Medical History / Comment(s): Does not know who father is. Brother(s) Family Medical History: Cancer, Congestive Heart Failure (CHF), Myocardial Infarction (OR) Additional Family Medical History / Comment(s): Parkinsons. Pt does not know at what age his brother had an OR. Patient's other brother has lung CA Patient has Family Medical History: No Reported History Additional Family Medical History / Comment(s): There is a strong family history for heart disease, hypertension, and diabetes. Medications and Allergies Home Medications Medication Instructions Recorded Confirmed Type Pantoprazole [Protonix] 40 mg PO DAILY 04/01/18 03/19/19 History Nitroglycerin Sl Tabs [Nitrostat] 0.4 mg SUBLINGUAL Q5M PRN 11/08/18 03/19/19 History Tamsulosin HCl [Flomax] 0.4 mg PO DAILY 11/08/18 03/19/19 History Apixaban [Eliquis] 5 mg PO BID 02/27/19 03/19/19 History Clopidogrel [Plavix] 75 mg PO DAILY 02/27/19 03/19/19 History Albuterol Sulfate [Ventolin HFA] 2 puff INHALATION RT-Q6H PRN 03/08/19 03/19/19 History Bumetanide [BUMEX] 2 mg PO DAILY 03/08/19 03/19/19 History DULoxetine HCL [Cymbalta] 60 mg PO BID 03/08/19 03/19/19 History Gabapentin [Neurontin] 100 mg PO TID 03/08/19 03/19/19 History Insulin Glargine [Lantus] 30 units SQ HS 03/08/19 03/19/19 History Primidone [Mysoline] 100 mg PO BID 03/08/19 03/19/19 History Rosuvastatin [Crestor] 10 mg PO DAILY 03/08/19 03/19/19 History ARIPiprazole [Abilify] 2.5 mg PO DAILY 30 Days #30 tab 03/16/19 03/19/19 Rx Metoprolol Tartrate [Lopressor] 25 mg PO BID 30 Days #60 tab 03/16/19 03/19/19 Rx Sodium Bicarbonate Tab 650 mg PO DAILY 30 Days #30 tab 03/16/19 03/19/19 Rx traMADol HCl [Ultram] 50 mg PO QID PRN #12 tab 03/16/19 03/19/19 Rx Allergies Allergy/AdvReac Type Severity Reaction Status Date / Time erythromycin base Allergy Severe Rash/Hives Verified 03/19/19 08:40 [Erythromycin Base] cephalexin monohydrate Allergy Unknown Rash/Hives Verified 03/19/19 08:40 [From Keflex] codeine Allergy Unknown Unknown Verified 03/19/19 08:40 meclizine Allergy Unknown Unknown Verified 03/19/19 08:40 Penicillins Allergy Unknown Rash/Hives Verified 03/19/19 08:40 shellfish derived Allergy Unknown Anaphylaxis Verified 03/19/19 08:40 adhesive tape Allergy Rash/Hives Verified 03/19/19 08:40 Fish Containing Products Allergy Anaphylaxis Verified 03/19/19 08:40 [Fish] Iodinated Contrast Media Allergy Anaphylaxis Verified 03/19/19 08:40 silver Allergy Rash/Hives Verified 03/19/19 08:40 [From Tegaderm AG Mesh] naproxen AdvReac Unknown Compromises Verified 03/19/19 08:40 Kidney Function atorvastatin calcium AdvReac Myalgia Verified 03/19/19 08:40 [From Lipitor] hydrocodone [From [place]] AdvReac Rapid Verified 03/19/19 08:40 Heart Rate Physical Exam Vitals: Vital Signs Temp Pulse Pulse Resp BP BP Pulse Ox 03/19/19 11:33 97.1 F L 109 H 16 125/92 97 03/19/19 09:00 97.6 F 105 H 18 106/73 98 03/19/19 06:15 98.3 F 110 H 18 124/96 94 L 03/19/19 05:35 111 H 20 132/110 96 03/19/19 03:43 109 H 03/19/19 03:35 97.8 F 107 H 20 120/75 100 Intake and Output 03/18/19 03/19/19 03/19/19 22:59 06:59 14:59 Other: Voiding Method Urinal Weight 90.718 kg Results 03/19/19 03:55 03/19/19 03:55 Cardiac Enzymes 03/19/19 03/19/19 03/19/19 Range/Units 03:55 03:55 10:46 AST 34 (17-59) U/L Troponin I 0.044 H* 0.039 H* (0.000-0.034) ng/mL Coagulation 03/19/19 Range/Units 03:55 PT 10.9 (9.0-12.0) sec APTT 23.3 (22.0-30.0) sec CBC 03/19/19 Range/Units 03:55 WBC 5.3 (3.8-10.6) k/uL RBC 4.58 (4.30-5.90) m/uL Hgb 12.3 L (13.0-17.5) gm/dL Hct 40.3 (39.0-53.0) % Plt Count 273 (150-450) k/uL Comprehensive Metabolic Panel 03/19/19 Range/Units 03:55 Sodium 128 L (137-145) mmol/L Potassium 4.0 (3.5-5.1) mmol/L Chloride 93 L (98-107) mmol/L Carbon Dioxide 23 (22-30) mmol/L BUN 17 (9-20) mg/dL Creatinine 0.73 (0.66-1.25) mg/dL Glucose 174 H (74-99) mg/dL Calcium 9.3 (8.4-10.2) mg/dL AST 34 (17-59) U/L ALT 54 (21-72) U/L Alkaline Phosphatase 225 H (38-126) U/L Total Protein 6.4 (6.3-8.2) g/dL Albumin 3.8 (3.5-5.0) g/dL Current Medications Generic Name Dose Route Start Last Admin Trade Name Freq PRN Reason Stop Dose Admin Acetaminophen 650 mg 03/19/19 09:28 03/19/19 09:50 Tylenol Tab PO 650 mg Q6HR PRN Administration Fever and/ or Pain Albuterol Sulfate 2.5 mg 03/19/19 09:43 Ventolin Nebulized INHALATION RT-Q6H PRN Wheezing Apixaban 5 mg 03/19/19 09:45 03/19/19 11:31 Eliquis PO 5 mg BID JAKE Administration Aripiprazole 2.5 mg 03/19/19 09:45 03/19/19 10:53 Abilify PO 2.5 mg DAILY [facility] Administration Aspirin 325 mg 03/20/19 09:00 03/19/19 07:50 Aspirin PO 325 mg DAILY [facility] Administration Bumetanide 2 mg 03/19/19 09:45 03/19/19 10:54 Bumex PO 2 mg DAILY [facility] Administration Clopidogrel Bisulfate 75 mg 03/19/19 09:45 03/19/19 10:53 Plavix PO 75 mg DAILY [facility] Administration Duloxetine HCl 60 mg 03/19/19 09:45 03/19/19 10:53 Cymbalta PO 60 mg BID [facility] Administration Gabapentin 100 mg 03/19/19 09:45 03/19/19 11:30 Neurontin PO 100 mg TID [facility] Administration Insulin Aspart 0 unit 03/19/19 12:30 Novolog SQ ACHS [facility] Protocol Insulin Detemir 30 unit 03/19/19 21:00 Levemir SQ [facility] Metoprolol Tartrate 25 mg 03/19/19 09:45 03/19/19 10:54 Lopressor PO 25 mg BID [facility] Administration Nitroglycerin 0.4 mg 03/19/19 05:28 03/19/19 07:49 Nitrostat SUBLINGUAL 0.4 mg Q5M PRN Administration Chest Pain Rosuvastatin ( 10 mg 03/19/19 09:45 03/19/19 10:54 Crestor) PO Not Given DAILY [facility] Pantoprazole Sodium 40 mg 03/20/19 07:30 Protonix PO AC-[id number] [facility] Primidone 100 mg 03/19/19 09:45 03/19/19 10:53 Mysoline PO 100 mg BID [facility] Administration Sodium Bicarbonate 650 mg 03/19/19 09:45 03/19/19 10:53 Sodium Bicarbonate Tab PO 650 mg DAILY [facility] Administration Tamsulosin HCl 0.4 mg 03/19/19 09:45 03/19/19 10:53 Flomax PO 0.4 mg DAILY [facility] Administration Tramadol HCl 50 mg 03/19/19 09:43 Ultram PO QID PRN Pain Intake and Output 03/18/19 03/19/19 03/19/19 22:59 06:59 14:59 Other: Voiding Method Urinal Weight 90.718 kg 03/19/19 03:55 03/19/19 03:55
[2019-03-19 17:03] LABS: Glucose,Whole Blood 157 mg/dL (75-99)
[2019-03-19] MEDS: INSULIN DETEMIR (LEVEMIR) 100 UNIT/ML SYR SQ SCH (20:50)
[2019-03-19 21:02] LABS: Glucose,Whole Blood 199 mg/dL (75-99)
[2019-03-20 03:52] LABS: Cholesterol 169 mg/dL (<200); HDL Cholesterol 39 mg/dL (40-60); LDL Cholesterol,Calculated 100 mg/dL (0-99); Triglycerides 149 mg/dL (<150)
[2019-03-20] MEDS: traMADol 50 MG TAB PO PRN (06:24)
[2019-03-20] MEDS: PANTOPRAZOLE 40 MG TABLET PO SCH (06:24)
[2019-03-20] MEDS: INSULIN ASPART (NovoLOG) 100 UNIT/ML VIAL SQ SCH ×4 (07:10→20:34)
[2019-03-20 07:15] LABS: Glucose,Whole Blood 99 mg/dL (75-99)
[2019-03-20] MEDS: GABAPENTIN 100 MG CAP PO SCH ×3 (07:53→20:29)
[2019-03-20] MEDS: DULoxetine HCL 60 MG CAPSULE.DR PO SCH ×2 (07:53→20:29)
[2019-03-20] MEDS: PRIMIDONE 50 MG TAB PO SCH ×2 (07:53→20:29)
[2019-03-20] MEDS: TAMSULOSIN 0.4 MG CAP.ER.24H PO SCH (07:53)
[2019-03-20] MEDS: ASPIRIN 81 MG PO SCH (07:53)
[2019-03-20] MEDS: BUMETANIDE 1 MG TAB PO SCH (07:54)
[2019-03-20] MEDS: APIXABAN 5 MG TAB PO SCH ×2 (07:54→20:29)
[2019-03-20] MEDS: METOPROLOL TARTRATE 25 MG TAB PO SCH ×2 (07:54→20:29)
[2019-03-20] MEDS: SODIUM BICARBONATE TAB 650 MG TAB PO SCH (07:54)
[2019-03-20] MEDS: ARIPiprazole 5 MG TAB PO SCH (07:54)
[2019-03-20] MEDS: CLOPIDOGREL 75 MG TAB PO SCH (07:54)
[2019-03-20] MEDS: ROSUVASTATIN PO SCH (07:57)
[2019-03-20] MEDS ORDERED: ASPIRIN 325 MG TAB PO SCH (09:00)
[2019-03-20 12:31] LABS: Glucose,Whole Blood 124 mg/dL (75-99)
--- NOTE | 2019-03-20 14:49 | P.HPIM ---
History of Present Illness H&P Date: 03/19/19 Chief Complaint: Chest pain Patient is a 43-year-old male with a known history of coronary artery disease and multiple stent placement, history of cardiopulmonary arrest with pulmonary embolism, ischemic cardiomyopathy status post AICD placement, chronic CHF with systolic dysfunction ejection fraction 20%, moderate to severe tricuspid regurgitation, mild pulmonary hypertension, depression, chronic low blood pressure, diabetes type 2 and history of DVT who was discharged from hospital on 03/16/2019, was treated for acute CHF and depression. Patient was feeling well after discharge but developed left-sided sharp chest pain and woke up from sleep yesterday evening. He did have nausea and dry heaves and shortness of breath with diaphoresis. Patient came back to the hospital for evaluation. Denied any cough or sputum production. No headache or dizziness or lighthe adedness. No fever no chills. Troponin level 0.044, 0.039 and 0.031 EKG showed paced rhythm Patient is currently saturating well on room air. Laboratory data showed WBC 5.3, hemoglobin 12.3 and platelets 270 3K Sodium 128, BUN 17 and creatinine 0.73 Review of Systems Constitutional: Patient denies any fever or chills . No generalized weakness or weight loss. Abdomen: Patient denied nausea vomiting and diarrhea and abdominal pain. Cardiovascular: Chest pain associated with shortness of breath and no palpitations no leg swelling. Respiratory: patient denied any cough is from production. No shortness of breath Neurologic: Patient denied any numbness or tingling headache. Musculoskeletal: Patient denies any complaints of joint swelling or deformity. Skin: Negative Psychiatric: Negative Endocrine: No heat or cold intolerance. No recent weight gain. Genitourinary: No dysuria or hematuria. All other 14 point ROS negative except the above Past Medical History Past Medical History: Asthma, Coronary Artery Disease (CAD), Chest Pain / Angina, Heart Failure, CVA/TIA, Diabetes Mellitus, Deep Vein Thrombosis (DVT), GERD/Reflux, Hyperlipidemia, Hypertension, Myocardial Infarction (CO), Osteo arthritis (OA), Pneumonia, Skin Disorder, Sleep Apnea/CPAP/BIPAP Additional Past Medical History / Comment(s): multiple vessel CAD, ischemic cardiomyopathy, diabetic neuropathy bilateral hands and feet, hypertensive cardiovascular disease, SHELIA with no device, chronic gastritis, degenerative disc disease, chronic back pain, depression with hx of suicide attempts, gastropare sis, psoriasis, UTI, migraines, TIA, PUD, hiatal hernia, L rotator cuff tear, bronchitis, pseudoaneurysm L groin post procedure. 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 Last Myocardial Infarction Date:: October 2017 History of Any Multi-Drug Resistant Organisms: MRSA Date of last positivie culture/infection: 11/05/17 (Culture done at [facility]) MDRO Source:: legs Past Surgical History: AICD, Appendectomy, Cholecystectomy, Heart Catheterization With Stent, Hernia Repair Additional Past Surgical History / Comment(s): Pt has had multiple cardiac procedures- caths/stents/PTCA, last stent placed at [facility] -October2017, SAVANNAH, R inguinal hernia repair, umbilical hernia repair, 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 Date of Last Stent Placement:: 10/2018 Type of Cardiac Device: Biventricular Pacemaker, AICD Device Placement Date:: 09/19/15 Past Psychological History: Anxiety, Depression, PTSD Additional Psychological History / Comment(s): Several suicide attempts with use of insulin. PTSD - in 2000 his 3mo old son in his arms (born 2 months premature). He has a walker at home if needed. He drives.pt has 2 adult stepchildren at home with him most of the time. Spouse manages his medications. Smoking Status: Never smoker Past Alcohol Use History: None Reported Additional Past Alcohol Use History / Comment(s): Past alcohol abuse - pt states he quit drinking over 8yrs ago. Past Drug Use History: None Reported Additional Drug Use History / Comment(s): Pt has smoked marijuana in the past - last smoked in 1999. - Past Family History Mother Family Medical History: Coronary Artery Disease (CAD), Myocardial Infarction (CO) Additional Family Medical History / Comment(s): 7 CO and faulty heart valve. Pt does not know the age when mother had her CO's. Father History Unknown: Yes Additional Family Medical History / Comment(s): Does not know who father is. Brother(s) Family Medical History: Cancer, Congestive Heart Failure (CHF), Myocardial Infarction (CO) Additional Family Medical History / Comment(s): Parkinsons. Pt does not know at what age his brother had an CO. Patient's other brother has lung CA Patient has Family Medical History: No Reported History Additional Family Medical History / Comment(s): There is a strong family history for heart disease, hypertension, and diabetes. Medications and Allergies Home Medications Medication Instructions Recorded Confirmed Type Pantoprazole [Protonix] 40 mg PO DAILY 04/01/18 03/19/19 History Nitroglycerin Sl Tabs [Nitrostat] 0.4 mg SUBLINGUAL Q5M PRN 11/08/18 03/19/19 History Tamsulosin HCl [Flomax] 0.4 mg PO DAILY 11/08/18 03/19/19 History Apixaban [Eliquis] 5 mg PO BID 02/27/19 03/19/19 History Clopidogrel [Plavix] 75 mg PO DAILY 02/27/19 03/19/19 History Albuterol Sulfate [Ventolin HFA] 2 puff INHALATION RT-Q6H PRN 03/08/19 03/19/19 History Bumetanide [BUMEX] 2 mg PO DAILY 03/08/19 03/19/19 History DULoxetine HCL [Cymbalta] 60 mg PO BID 03/08/19 03/19/19 History Gabapentin [Neurontin] 100 mg PO TID 03/08/19 03/19/19 History Insulin Glargine [Lantus] 30 units SQ HS 03/08/19 03/19/19 History Primidone [Mysoline] 100 mg PO BID 03/08/19 03/19/19 History Rosuvastatin [Crestor] 10 mg PO DAILY 03/08/19 03/19/19 History ARIPiprazole [Abilify] 2.5 mg PO DAILY 30 Days #30 tab 03/16/19 03/19/19 Rx Metoprolol Tartrate [Lopressor] 25 mg PO BID 30 Days #60 tab 03/16/19 03/19/19 Rx Sodium Bicarbonate Tab 650 mg PO DAILY 30 Days #30 tab 03/16/19 03/19/19 Rx traMADol HCl [Ultram] 50 mg PO QID PRN #12 tab 03/16/19 03/19/19 Rx Allergies Allergy/AdvReac Type Severity Reaction Status Date / Time erythromycin base Allergy Severe Rash/Hives Verified 03/19/19 08:40 [Erythromycin Base] cephalexin monohydrate Allergy Unknown Rash/Hives Verified 03/19/19 08:40 [From Keflex] codeine Allergy Unknown Unknown Verified 03/19/19 08:40 meclizine Allergy Unknown Unknown Verified 03/19/19 08:40 Penicillins Allergy Unknown Rash/Hives Verified 03/19/19 08:40 shellfish derived Allergy Unknown Anaphylaxis Verified 03/19/19 08:40 adhesive tape Allergy Rash/Hives Verified 03/19/19 08:40 Fish Containing Products Allergy Anaphylaxis Verified 03/19/19 08:40 [Fish] Iodinated Contrast Media Allergy Anaphylaxis Verified 03/19/19 08:40 silver Allergy Rash/Hives Verified 03/19/19 08:40 [From Tegaderm AG Mesh] naproxen AdvReac Unknown Compromises Verified 03/19/19 08:40 Kidney Function atorvastatin calcium AdvReac Myalgia Verified 03/19/19 08:40 [From Lipitor] hydrocodone [From Dewey] AdvReac Rapid Verified 03/19/19 08:40 Heart Rate Physical Exam Vitals: Vital Signs Temp Pulse Resp BP Pulse Ox 03/20/19 12:00 96.7 F L 76 18 91/64 99 03/20/19 07:59 77 18 03/20/19 07:42 97.7 F 77 18 96/68 94 L 03/20/19 04:00 97.9 F 81 18 94/69 99 03/20/19 00:00 97.8 F 78 16 95/75 98 03/19/19 20:00 97.6 F 92 18 110/64 94 L 03/19/19 15:53 97.0 F L 84 18 103/68 98 Intake and Output 03/19/19 03/20/19 03/20/19 22:59 06:59 14:59 Intake Total 600 200 260 Balance 600 200 260 Intake: Oral 600 200 260 Other: Voiding Method Toilet Toilet Toilet Weight 91.3 kg PHYSICAL EXAMINATION: Patient is lying in the bed comfortably, no acute distress, awake alert and oriented.. HEENT: Normocephalic. Neck is supple. Pupils reactive. Nostrils clear. Oral cavity is moist. Ears reveal no drainage. Neck reveals no JVD, carotid bruits, or thyromegaly. CHEST EXAMINATION: Trachea is central. Symmetrical expansion. Bibasilar diminished air entry Lung hendrix clear to auscultation and percussion. CARDIAC: Normal S1, S2 with no gallops. . Positive Systolic murmur ABDOMEN: Soft. Bowel sounds normal. No organomegaly. No abdominal bruits. Extremities: Trace edema. No clubbing or cyanosis Neurologically awake, alert, oriented x3 with well-coordinated movements. No focal deficits noted Skin: No rash or skin lesions. Psychiatric: Coperative. Nonsuicidal Musculoskeletal: No joint swelling or deformity. Normal range of motion. Results CBC & Chem 7: 03/19/19 03:55 03/19/19 03:55 Labs: Abnormal Lab Results - Last 24 Hours (Table) 03/19/19 03/19/19 03/19/19 Range/Units 03:55 17:01 20:37 POC Glucose (mg/dL) 157 H 199 H (75-99) mg/dL LDL Cholesterol, Calc 100 H (0-99) mg/dL HDL Cholesterol 39 L (40-60) mg/dL 03/20/19 Range/Units 12:30 POC Glucose (mg/dL) 124 H (75-99) mg/dL LDL Cholesterol, Calc (0-99) mg/dL HDL Cholesterol (40-60) mg/dL Thrombosis Risk Factor Assmnt - DVT/VTE Prophylaxis DVT/VTE Prophylaxis: Pharmacologic Prophylaxis ordered - Choose All That Apply Any of the Below Risk Factors Present?: Yes Each Factor Represents 1 point: Age 41-60 years, Obesity (BMI >25) Thrombosis Risk Factor Assessment Total Risk Factor Score: 2 Thrombosis Risk Factor Assessment Level: Low Risk Assessment and Plan Assessment: Chest pain with slightly elevated troponin level. Possible non-ST elevated CO History of coronary artery disease with multiple stents in the past Chronic CHF with systolic dysfunction ejection fraction 20% Ischemic cardiomyopathy status post AICD placement Chronic atrial fibrillation on anticoagulation with Eliquis History of cardiopulmonary arrest History of suicidal ideation Hyponatremia possibly hypovolemic in nature. Possible SIADH Hypertension. Patient is currently hypotensive. Hyperlipidemia History of diabetes mellitus type 2 History of diabetic peripheral neuropathy History of deep vein thrombosis and PE History of gastroesophageal reflux disease next line history of obesity Sleep apnea History of anemia Mild hyperkalemia Depression Obesity with BMI 32.5 DVT prophylaxis patient is already on full anticoagulation Plan: Patient will be continued on telemetry monitoring. Continue with aspirin statins, Plavix and Eliquis. Continue with low-dose beta blockers and monitor blood pressure. Cardiology was consulted. Troponin levels are trending down. Further recommendations based on the clinical course. Continue with insulin sliding scale and monitor sodium level as well Pain management with Tylenol. Avoid IV pain medications due to hypotension. Follow up closely and further recommendations based on the clinical course. Time with Patient: Greater than 30
--- NOTE | 2019-03-20 14:52 | P.PN ---
Subjective Progress Note Date: 03/20/19 Principal diagnosis: Chest pain with mildly elevated troponin level Patient is a 43-year-old male with a known history of coronary artery disease and multiple stent placement, history of cardiopulmonary arrest with pulmonary embolism, ischemic cardiomyopathy status post AICD placement, chronic CHF with systolic dysfunction ejection fraction 20%, moderate to severe tricuspid re gurgitation, mild pulmonary hypertension, depression, chronic low blood pressure, diabetes type 2 and history of DVT who was discharged from hospital on 03/16/2019, was treated for acute CHF and depression. Patient was feeling well after discharge but developed left-sided sharp chest pain and woke up from sleep yesterday evening. He did have nausea and dry heaves and shortness of breath with diaphoresis. Patient came back to the hospital for evaluation. Denied any cough or sputum production. No headache or dizziness or lightheadedness. No fever no chills. Troponin level 0.044, 0.039 and 0.031 EKG showed paced rhythm Patient is currently saturating well on room air. Laboratory data showed WBC 5.3, hemoglobin 12.3 and platelets 270 3K Sodium 128, BUN 17 and creatinine 0.73 03/20/2019 Patient is complaining of chest pains on and off. Currently improved now. Troponin levels are trending down. Otherwise patient denied any nausea vomiting or abdominal pain. No cough or sputum production. Saturating well on room air. No worsening shortness of breath and leg swelling. Currently on tramadol and Tylenol for pain. Cardiology is following. Active Medications Acetaminophen (Tylenol Tab) 650 mg PO Q6HR PRN PRN Reason: Fever and/ or Pain Last Admin: 03/19/19 09:50 Dose: 650 mg Documented by: Albuterol Sulfate (Ventolin Nebulized) 2.5 mg INHALATION RT-Q6H PRN PRN Reason: Wheezing Apixaban (Eliquis) 5 mg PO BID [facility] Last Admin: 03/20/19 07:54 Dose: 5 mg Documented by: Aripiprazole (Abilify) 2.5 mg PO DAILY [facility] Last Admin: 03/20/19 07:54 Dose: 2.5 mg Documented by: Aspirin (Aspirin) 81 mg PO DAILY [facility] Last Admin: 03/20/19 07:53 Dose: 81 mg Documented by: Bumetanide (Bumex) 2 mg PO DAILY [facility] Last Admin: 03/20/19 07:54 Dose: 2 mg Documented by: Clopidogrel Bisulfate (Plavix) 75 mg PO DAILY [facility] Last Admin: 03/20/19 07:54 Dose: 75 mg Documented by: Duloxetine HCl (Cymbalta) 60 mg PO BID [facility] Last Admin: 03/20/19 07:53 Dose: 60 mg Documented by: Gabapentin (Neurontin) 100 mg PO TID [facility] Last Admin: 03/20/19 07:53 Dose: 100 mg Documented by: Insulin Aspart (Novolog) 0 unit SQ [facility]; Protocol Last Admin: 03/20/19 12:38 Dose: Not Given Documented by: Insulin Detemir (Levemir) 30 unit SQ HS [facility] Last Admin: 03/19/19 20:50 Dose: 30 unit Documented by: Metoprolol Tartrate (Lopressor) 25 mg PO BID [facility] Last Admin: 03/20/19 07:54 Dose: 25 mg Documented by: Nitroglycerin (Nitrostat) 0.4 mg SUBLINGUAL Q5M PRN PRN Reason: Chest Pain Last Admin: 03/19/19 07:49 Dose: 0.4 mg Documented by: Rosuvastatin ( (Crestor)) 10 mg PO DAILY [facility] Last Admin: 03/20/19 07:57 Dose: Not Given Documented by: Pantoprazole Sodium (Protonix) 40 mg PO -BRKT [facility] Last Admin: 03/20/19 06:24 Dose: 40 mg Documented by: Primidone (Mysoline) 100 mg PO BID [facility] Last Admin: 03/20/19 07:53 Dose: 100 mg Documented by: Sodium Bicarbonate (Sodium Bicarbonate Tab) 650 mg PO DAILY [facility] Last Admin: 03/20/19 07:54 Dose: 650 mg Documented by: Tamsulosin HCl (Flomax) 0.4 mg PO DAILY [facility] Last Admin: 03/20/19 07:53 Dose: 0.4 mg Documented by: Tramadol HCl (Ultram) 50 mg PO QID PRN PRN Reason: Pain Last Admin: 03/20/19 06:24 Dose: 50 mg Documented by: Objective - Vital Signs Vital signs: Vital Signs Temp 96.7 F L 03/20/19 12:00 Pulse 76 03/20/19 12:00 Resp 18 03/20/19 12:00 BP 91/64 03/20/19 12:00 Pulse Ox 99 03/20/19 12:00 Intake & Output 03/19/19 03/20/19 03/20/19 18:59 06:59 18:59 Intake Total 240 800 260 Balance 240 800 260 Weight 91.3 kg Intake: Oral 240 800 260 Other: Voiding Method Toilet Toilet Toilet # Voids 1 - Exam PHYSICAL EXAMINATION: Patient is lying in the bed comfortably, no acute distress, awake alert and oriented.. HEENT: Normocephalic. Neck is supple. Pupils reactive. Nostrils clear. Oral cavity is moist. Ears reveal no drainage. Neck reveals no JVD, carotid bruits, or thyromegaly. CHEST EXAMINATION: Trachea is central. Symmetrical expansion. Bibasilar diminished air entry Lung hendrix clear to auscultation and percussion. CARDIAC: Normal S1, S2 with no gallops. . Positive Systolic murmur ABDOMEN: Soft. Bowel sounds normal. No organomegaly. No abdominal bruits. Extremities: Trace edema. No clubbing or cyanosis Neurologically awake, alert, oriented x3 with well-coordinated movements. No focal deficits noted Skin: No rash or skin lesions. Psychiatric: Coperative. Nonsuicidal Musculoskeletal: No joint swelling or deformity. Normal range of motion. - Labs CBC & Chem 7: 03/19/19 03:55 03/19/19 03:55 Labs: Abnormal Lab Results - Last 24 Hours (Table) 03/19/19 03/19/19 03/19/19 Range/Units 03:55 17:01 20:37 POC Glucose (mg/dL) 157 H 199 H (75-99) mg/dL LDL Cholesterol, Calc 100 H (0-99) mg/dL HDL Cholesterol 39 L (40-60) mg/dL 03/20/19 Range/Units 12:30 POC Glucose (mg/dL) 124 H (75-99) mg/dL LDL Cholesterol, Calc (0-99) mg/dL HDL Cholesterol (40-60) mg/dL Assessment and Plan Assessment: Chest pain with slightly elevated troponin level. Possible non-ST elevated AL History of coronary artery disease with multiple stents in the past Chronic CHF with systolic dysfunction ejection fraction 20% Ischemic cardiomyopathy status post AICD placement Chronic atrial fibrillation on anticoagulation with Eliquis History of cardiopulmonary arrest History of suicidal ideation Hyponatremia possibly hypovolemic in nature. Possible SIADH Hypertension. Patient is currently hypotensive. Hyperlipidemia History of diabetes mellitus type 2 History of diabetic peripheral neuropathy History of deep vein thrombosis and PE History of gastroesophageal reflux disease next line history of obesity Sleep apnea History of anemia Mild hyperkalemia Depression Obesity with BMI 32.5 DVT prophylaxis patient is already on full anticoagulation Plan: Patient will be continued on telemetry monitoring. Continue with aspirin statins, Plavix and Eliquis. Continue with low-dose beta blockers and monitor blood pressure. Cardiology was consulted. Troponin levels are trending down. Further recommendations based on the clinical course. Continue with insulin sliding scale and monitor sodium level as well Pain management with Tylenol. Avoid IV pain medications due to hypotension. Follow up closely and further recommendations based on the clinical course. Time with Patient: Greater than 30
[2019-03-20 16:53] LABS: Glucose,Whole Blood 123 mg/dL (75-99)
[2019-03-20 20:34] LABS: Glucose,Whole Blood 135 mg/dL (75-99)
[2019-03-20] MEDS: INSULIN DETEMIR (LEVEMIR) 100 UNIT/ML SYR SQ SCH (20:34)
[2019-03-21 02:06] LABS: Glucose,Whole Blood 165 mg/dL (75-99)
[2019-03-21 05:09] LABS: Glucose,Whole Blood 124 mg/dL (75-99)
[2019-03-21 06:12] LABS: Glucose,Whole Blood 135 mg/dL (75-99)
[2019-03-21] MEDS: INSULIN ASPART (NovoLOG) 100 UNIT/ML VIAL SQ SCH ×4 (06:34→20:59)
[2019-03-21] MEDS: PANTOPRAZOLE 40 MG TABLET PO SCH (06:34)
[2019-03-21 06:43] LABS: Anisocytosis Slight; HGB 11.7 gm/dL (13.0-17.5); Hypochromasia Marked; MCH 27.6 pg (25.0-35.0); MCHC 30.7 g/dL (31.0-37.0); Mean Platelet Volume 6.4; Platelet Count 236 k/uL (150-450); Poikilocytosis Slight; RBC 4.22 m/uL (4.30-5.90); RDW 19.7 % (11.5-15.5); WBC 4.9 k/uL (3.8-10.6)
[2019-03-21 06:57] LABS: African American GFR (CKD) >90 (>60 ml/min/1.73 sqM); Anion Gap 11 mmol/L; Blood Urea Nitrogen 30 mg/dL (9-20); Calcium 8.5 mg/dL (8.4-10.2); Carbon Dioxide 24 mmol/L (22-30); Chloride 95 mmol/L (98-107); Glucose 113 mg/dL (74-99); Potassium 4.1 mmol/L (3.5-5.1); Sodium 130 mmol/L (137-145)
[2019-03-21 07:27] LABS: Lymphocytes # (M) 0.93 k/uL (1.0-4.8); Neutrophils % (M) 75 %; Nucleated Red Blood Cells 0 /100 WBC (0-0); Total Cells Counted 100
[2019-03-21] MEDS: METOPROLOL TARTRATE 25 MG TAB PO SCH ×2 (08:25→20:57)
[2019-03-21] MEDS: GABAPENTIN 100 MG CAP PO SCH ×3 (08:25→20:57)
[2019-03-21] MEDS: SODIUM BICARBONATE TAB 650 MG TAB PO SCH (08:25)
[2019-03-21] MEDS: TAMSULOSIN 0.4 MG CAP.ER.24H PO SCH (08:25)
[2019-03-21] MEDS: ARIPiprazole 5 MG TAB PO SCH (08:26)
[2019-03-21] MEDS: PRIMIDONE 50 MG TAB PO SCH ×2 (08:26→20:58)
[2019-03-21] MEDS: DULoxetine HCL 60 MG CAPSULE.DR PO SCH ×2 (08:26→20:58)
[2019-03-21] MEDS: BUMETANIDE 1 MG TAB PO SCH (08:26)
[2019-03-21] MEDS: CLOPIDOGREL 75 MG TAB PO SCH (08:26)
[2019-03-21] MEDS: ASPIRIN 81 MG PO SCH (08:26)
[2019-03-21] MEDS: ROSUVASTATIN PO SCH (08:26)
[2019-03-21] MEDS: APIXABAN 5 MG TAB PO SCH ×2 (08:26→20:58)
[2019-03-21] MEDS: traMADol 50 MG TAB PO PRN (11:20)
[2019-03-21] MEDS: ACETAMINOPHEN TAB 325 MG TAB PO PRN (11:21)
[2019-03-21 12:20] LABS: Glucose,Whole Blood 142 mg/dL (75-99)
[2019-03-21] MEDS ORDERED: HYDROcodone/APAP 5-325MG 1 EACH TAB PO PRN (14:28)
[2019-03-21] MEDS: HYDROmorphone 0.5 MG/0.5 ML SYRINGE IVP PRN ×2 (14:38→20:59)
[2019-03-21 16:55] LABS: Glucose,Whole Blood 180 mg/dL (75-99)
[2019-03-21 20:49] LABS: Glucose,Whole Blood 154 mg/dL (75-99)
[2019-03-21] MEDS: INSULIN DETEMIR (LEVEMIR) 100 UNIT/ML SYR SQ SCH (20:59)
[2019-03-21] MEDS ORDERED: FUROSEMIDE 10 MG/ML 2 ML VIAL IV STA (21:12)
--- NOTE | 2019-03-21 21:31 | PN ---
PROGRESS NOTE DATE OF SERVICE: 03/21/2019 This 43-year-old gentleman who was admitted with chest pain is being closely monitored at this time. The patient has significant coronary artery disease in the past. The patient also has history of noncompliance also. The patient has been evaluated by multiple tertiary care centers and being offered no further treatment at this point. No fever. No cough. EXAM: Alert and oriented x3. Pulse 74, blood pressure 93/64, respiration 18. Temperature 98.6. Pulse ox 100 percent on room air. HEENT is conjunctivae normal. Neck: No JVD. Cardiovascular: S1, S2 normal. Respirations: A few scattered rhonchi. Abdomen soft, obese. Legs no edema. No swelling. CENTRAL NERVOUS SYSTEM: No focal deficits. LABS: WBC 4.2, hemoglobin 11.7, sodium 130, potassium 4.1. Glucose noted. ASSESSMENT: 1. Chest pain, possibly unstable angina, possible acute non ST-segment elevated myocardial infarction. 2. History of coronary artery disease with multiple stents in the past. 3. Chronic congestive heart failure with systolic dysfunction, ejection fraction 20% with ischemic cardiomyopathy. 4. Status post AICD placement. 5. Chronic atrial fibrillation, anticoagulated with Eliquis. 6. History of cardiopulmonary arrest. 7. History of suicidal ideation. 8. History of noncompliance. 9. Hyponatremia, possibly hypovolemic nature, possibly Syndrome of inappropriate antidiuretic hormone. 10.Hypertension. 11.Hypotension relative. 12.Hyperlipidemia. 13.Diabetes mellitus type 2. 14.Diabetic peripheral neuropathy. 15.History of deep vein thrombosis and pulmonary embolism. 16.History of gastroesophageal reflux disease. 17.Sleep apnea. 18.History of anemia. 19.Mild hypercalcemia. 20.Depression. 21.Obesity with body mass index of 32.5. RECOMMENDATIONS AND DISCUSSION: I recommend to continue current medications, management and symptomatic treatment. Otherwise, increase ambulation. Overall prognosis extremely guarded. Discussed with the patient who understands and agrees. Further recommendations to follow. Medication reconciliation done. MMODL / IJN: [id number] /
[2019-03-22] MEDS: HYDROmorphone 0.5 MG/0.5 ML SYRINGE IVP PRN ×4 (03:12→19:32)
[2019-03-22 05:26] LABS: Glucose,Whole Blood 63 mg/dL (75-99)
[2019-03-22] MEDS: INSULIN ASPART (NovoLOG) 100 UNIT/ML VIAL SQ SCH ×4 (05:35→21:39)
[2019-03-22 05:48] LABS: Glucose,Whole Blood 79 mg/dL (75-99)
[2019-03-22] MEDS: PANTOPRAZOLE 40 MG TABLET PO SCH (05:50)
[2019-03-22] MEDS: APIXABAN 5 MG TAB PO SCH ×2 (08:25→21:34)
[2019-03-22] MEDS: TAMSULOSIN 0.4 MG CAP.ER.24H PO SCH (08:25)
[2019-03-22] MEDS: SODIUM BICARBONATE TAB 650 MG TAB PO SCH (08:25)
[2019-03-22] MEDS: BUMETANIDE 1 MG TAB PO SCH (08:25)
[2019-03-22] MEDS: ASPIRIN 81 MG PO SCH (08:25)
[2019-03-22] MEDS: METOPROLOL TARTRATE 25 MG TAB PO SCH ×2 (08:25→21:34)
[2019-03-22] MEDS: GABAPENTIN 100 MG CAP PO SCH ×3 (08:25→21:34)
[2019-03-22] MEDS: PRIMIDONE 50 MG TAB PO SCH ×2 (08:25→21:34)
[2019-03-22] MEDS: CLOPIDOGREL 75 MG TAB PO SCH (08:25)
[2019-03-22] MEDS: DULoxetine HCL 60 MG CAPSULE.DR PO SCH ×2 (08:25→21:34)
[2019-03-22] MEDS: ARIPiprazole 5 MG TAB PO SCH (08:26)
[2019-03-22] MEDS: ROSUVASTATIN PO SCH (08:41)
--- NOTE | 2019-03-22 11:46 | XR ---
EXAMINATION TYPE: XR chest 1V portable DATE OF EXAM: 03/22/2019 COMPARISON: 03/19/2019 HISTORY: Shortness of breath TECHNIQUE: Single frontal view of the chest is obtained. FINDINGS: The heart is enlarged and there is a cardiac device. Question coronary artery stenting sophia cification. Interstitial pattern seen with bilateral consolidation and small pleural effusion greater on the right. No pneumothorax. IMPRESSION: Basilar infiltrate and small effusion is stable correlate for CHF versus pneumonia.
[2019-03-22] MEDS: FUROSEMIDE 10 MG/ML 4 ML VIAL IV SCH ×2 (12:25→21:34)
[2019-03-22 12:30] LABS: Glucose,Whole Blood 57 mg/dL (75-99)
[2019-03-22 13:01] LABS: Glucose,Whole Blood 76 mg/dL (75-99)
--- NOTE | 2019-03-22 15:39 | P.PN ---
Subjective Progress Note Date: 03/22/19 Principal diagnosis: This is a 43-year-old male who was recently admitted with chest pain and is being closely monitored. Patient continues to stay here short of breath and feels that he is retaining fluids. Patient states he is urinating well and is on fluid restrictions per nephrology recommendations and is currently maintained on IV Lasix twice daily. Repeat chest x-ray was done today showing basilar infiltrate and small effusion that is stable. Patient continues to state that he has chest pain that is 10 out of 10 and states that the pain medications aren't helping. Patient does have IV Dilaudid along with [place] that is ordered. Patient states that he doesn't feel like he is ready to be discharged at this time due to his shortness of breath. Will continue to monitor closely. Objective - Vital Signs Vital signs: Vital Signs Temp 97.7 F 03/22/19 04:00 Pulse 78 03/22/19 12:00 Resp 18 03/22/19 12:00 BP 111/54 03/22/19 12:00 Pulse Ox 98 03/22/19 12:00 Intake & Output 03/21/19 03/22/19 03/22/19 18:59 06:59 18:59 Intake Total 970 120 564 Output Total 250 200 650 Balance 720 -80 -86 Weight 111.2 kg Intake: Oral 970 120 564 Output: Urine 250 200 650 Other: Voiding Method Toilet Toilet # Voids 1 1 1 - Exam Gen: This is a 43-year-old male sitting up in the chair in no acute distress. Vital signs are stable. Temp is 97.7F, pulse is 78, respirations are 18, blood pressure is 111/54, oxygen saturation is 98% on room air. HEENT: Head is atraumatic, normocephalic. Pupils equal, round. Sclerae is anicteric. NECK: Supple. No JVD. No lymphadenopathy. No thyromegaly. LUNGS: Diminished breath sounds at the bases with a few scattered rhonchi noted. No wheezes noted. No intercostal retractions. HEART: Cardio S1-S2 are present ABDOMEN: Soft. Obese. Bowel sounds are present. No masses. No tenderness. EXTREMITIES: No pedal edema. No calf tenderness. NEUROLOGICAL: Patient is awake, alert and oriented x3. Cranial nerves 2 through 12 are grossly intact. - Labs CBC & Chem 7: 03/21/19 05:35 03/21/19 05:35 Labs: Abnormal Lab Results - Last 24 Hours (Table) 03/21/19 03/21/19 03/22/19 Range/Units 16:52 20:48 05:25 POC Glucose (mg/dL) 180 H 154 H 63 L (75-99) mg/dL 03/22/19 Range/Units 12:28 POC Glucose (mg/dL) 57 L (75-99) mg/dL Assessment and Plan Assessment: Chest pain, possibly unstable angina, possible acute non-ST segment elevated myocardial infarction History of coronary artery disease with multiple stents in the past Chronic congestive heart failure with systolic dysfunction, ejection fraction 20% with ischemic cardiomyopathy Status post AICD placement Chronic atrial fibrillation, anticoagulated with Eliquis History of cardiopulmonary arrest History of suicidal ideation History of noncompliance Hyponatremia, possibly hypovolemic in nature, possibly SIADH Hypertension Hypotension relative Hyperlipidemia Diabetes mellitus type 2 Diabetic peripheral neuropathy History of deep vein thrombosis and pulmonary embolism history of gastroesophageal reflux disease Sleep apnea History of anemia Mild hypercalcemia Depression Obesity with body mass index of 32.5 Recommendations and discussion: Recommend to continue current medications, management, and symptomatic treatment. Patient is currently on IV Lasix twice daily and will transition back to Bumex. Patient is to continue on fluid restrictions per nephrology rec ommendations. Discussed with the nursing staff about avoiding IV narcotics as much as possible. Due to multiple complex medical issues overall prognosis is extremely guarded. Further recommendations to follow. Probable discharge in 24 hours.
[2019-03-22 15:54] LABS: Glucose,Whole Blood 72 mg/dL (75-99)
[2019-03-22 16:43] LABS: Glucose,Whole Blood 86 mg/dL (75-99)
[2019-03-22 20:52] LABS: Glucose,Whole Blood 60 mg/dL (75-99)
[2019-03-22 21:28] LABS: Glucose,Whole Blood 87 mg/dL (75-99)
[2019-03-22] MEDS: INSULIN DETEMIR (LEVEMIR) 100 UNIT/ML SYR SQ SCH (21:39)
[2019-03-23] MEDS: HYDROmorphone 0.5 MG/0.5 ML SYRINGE IVP PRN ×2 (01:05→06:50)
[2019-03-23 01:54] LABS: Glucose,Whole Blood 89 mg/dL (75-99)
[2019-03-23 05:33] LABS: Glucose,Whole Blood 82 mg/dL (75-99)
[2019-03-23] MEDS: INSULIN ASPART (NovoLOG) 100 UNIT/ML VIAL SQ SCH ×2 (05:33→12:04)
[2019-03-23] MEDS: PANTOPRAZOLE 40 MG TABLET PO SCH (06:50)
[2019-03-23] MEDS: DULoxetine HCL 60 MG CAPSULE.DR PO SCH (08:46)
[2019-03-23] MEDS: CLOPIDOGREL 75 MG TAB PO SCH (08:46)
[2019-03-23] MEDS: ARIPiprazole 5 MG TAB PO SCH (08:47)
[2019-03-23] MEDS: ASPIRIN 81 MG PO SCH (08:47)
[2019-03-23] MEDS: PRIMIDONE 50 MG TAB PO SCH (08:47)
[2019-03-23] MEDS: TAMSULOSIN 0.4 MG CAP.ER.24H PO SCH (08:47)
[2019-03-23] MEDS: GABAPENTIN 100 MG CAP PO SCH (08:47)
[2019-03-23] MEDS: APIXABAN 5 MG TAB PO SCH (08:47)
[2019-03-23] MEDS: METOPROLOL TARTRATE 25 MG TAB PO SCH (08:47)
[2019-03-23] MEDS: SODIUM BICARBONATE TAB 650 MG TAB PO SCH (08:47)
[2019-03-23] MEDS: FUROSEMIDE 10 MG/ML 4 ML VIAL IV SCH (08:47)
[2019-03-23] MEDS: ROSUVASTATIN PO SCH (08:48)
[2019-03-23 09:03] VITALS: RESP 18
[2019-03-23 10:33] LABS: African American GFR (CKD) >90 (>60 ml/min/1.73 sqM); Anion Gap 9 mmol/L; Blood Urea Nitrogen 40 mg/dL (9-20); Calcium 8.6 mg/dL (8.4-10.2); Carbon Dioxide 24 mmol/L (22-30); Chloride 97 mmol/L (98-107); Glucose 114 mg/dL (74-99); Potassium 4.3 mmol/L (3.5-5.1); Sodium 130 mmol/L (137-145)
[2019-03-23 11:55] LABS: Glucose,Whole Blood 101 mg/dL (75-99)
[2019-03-23 12:20] VITALS: BP 115/68; PULSE 72; TEMP 97.6
--- NOTE | 2019-03-23 16:13 | P.DS ---
Providers Date of admission: 03/21/19 09:14 Expected date of discharge: 03/23/19 Attending physician: Safia Clay Consults: 03/19/19 05:28 Consult Physician Routine Consulting Provider: Gerson Dewey Consult Reason/Comments: chest pain Do you want consulting provider notified?: Yes Primary care physician: [facility] Course: Final diagnosis Chest pain, possibly unstable angina, possible acute non-ST segment elevated myocardial infarction History of coronary artery disease with multiple stents in the past Chronic congestive heart failure with systolic dysfunction, ejection fraction 20% with ischemic cardiomyopathy Status post AICD placement Chronic atrial fibrillation, anticoagulated with Eliquis History of cardiopulmonary arrest History of suicidal ideation History of noncompliance Hyponatremia, possibly hypovolemic in nature, possibly SIADH Hypertension Hypotension relative Hyperlipidemia Diabetes mellitus type 2 Diabetic peripheral neuropathy History of deep vein thrombosis and pulmonary embolism history of gastroesophageal reflux disease Sleep apnea History of anemia Mild hypercalcemia Depression Obesity with body mass index of 32.5 Discharge disposition Patient is being discharged in a stable condition with guarded prognosis to home and will follow-up with primary care provider upon discharge. Patient will also follow-up with nephrology as discussed in previous admission as well as cardiology in one week. Total time taken is 35 minutes. History of present illness This is a 43-year-old male who was recently admitted with chest pain and was being closely monitored. Patient was also having shortness of breath and felt that he was distended and retaining fluids. During hospitalization patient was receiving IV Lasix 40 mg twice daily and will continue on his Bumex upon discharge. Patient will also follow-up with nephrology in the outpatient setting for his hyponatremia as discussed in the previous admission. Patient was continued on sodium bicarb tabs and will continue at this time until follow- up with nephrology. Current sodium is 130. Recent chest x-ray that was done yesterday shows basilar infiltrate and small effusion that was stable and unchanged. Patient states that he is not eating very well but denies any nausea or vomiting. Patient states that he has chest pain that is intermittent and denies any palpitations at this time. Patient denies any shortness of breath. Currently patient's condition is stable and will be discharged today. Discussed with the patient at length about following up with his primary care provider possibly tomorrow for continuity of care as opposed to returning to the hospital without follow-up. Patient verbalized understanding. Extremely guarded prognosis. On exam vital signs are stable. Temp is 97.6F, pulse is 72, respirations are 18, blood pressure 115/68, oxygen saturation is 100% on room air. Cardio S1 and S2 are muffled. Respiratory system shows diminished breath sounds at the bases otherwise clear to auscultation. Abdomen is soft, obese, and non-tender with no distention noted. Nervous system shows no focal deficits. Please refer to medication reconciliation sheet for a list of medications. Patient Condition at Discharge: Poor Plan - Discharge Summary Discharge Rx Participant: No New Discharge Prescriptions: New Aspirin 81 mg PO DAILY 30 Days #30 chew Continue Pantoprazole [Protonix] 40 mg PO DAILY Nitroglycerin Sl Tabs [Nitrostat] 0.4 mg SUBLINGUAL Q5M PRN PRN Reason: Chest Pain Tamsulosin HCl [Flomax] 0.4 mg PO DAILY Clopidogrel [Plavix] 75 mg PO DAILY Apixaban [Eliquis] 5 mg PO BID Insulin Glargine [Lantus] 30 units SQ HS Gabapentin [Neurontin] 100 mg PO TID DULoxetine HCL [Cymbalta] 60 mg PO BID Albuterol Sulfate [Ventolin HFA] 2 puff INHALATION RT-Q6H PRN PRN Reason: Wheezing Bumetanide [BUMEX] 2 mg PO DAILY Rosuvastatin [Crestor] 10 mg PO DAILY Primidone [Mysoline] 100 mg PO BID ARIPiprazole [Abilify] 2.5 mg PO DAILY 30 Days #30 tab Metoprolol Tartrate [Lopressor] 25 mg PO BID 30 Days #60 tab Sodium Bicarbonate Tab 650 mg PO DAILY 30 Days #30 tab traMADol HCl [Ultram] 50 mg PO QID PRN #12 tab PRN Reason: Pain Discharge Medication List Pantoprazole [Protonix] 40 mg PO DAILY 04/01/18 [History] Nitroglycerin Sl Tabs [Nitrostat] 0.4 mg SUBLINGUAL Q5M PRN 11/08/18 [History] Tamsulosin HCl [Flomax] 0.4 mg PO DAILY 11/08/18 [History] Apixaban [Eliquis] 5 mg PO BID 02/27/19 [History] Clopidogrel [Plavix] 75 mg PO DAILY 02/27/19 [History] Albuterol Sulfate [Ventolin HFA] 2 puff INHALATION RT-Q6H PRN 03/08/19 [History] Bumetanide [BUMEX] 2 mg PO DAILY 03/08/19 [History] DULoxetine HCL [Cymbalta] 60 mg PO BID 03/08/19 [History] Gabapentin [Neurontin] 100 mg PO TID 03/08/19 [History] Insulin Glargine [Lantus] 30 units SQ HS 03/08/19 [History] Primidone [Mysoline] 100 mg PO BID 03/08/19 [History] Rosuvastatin [Crestor] 10 mg PO DAILY 03/08/19 [History] ARIPiprazole [Abilify] 2.5 mg PO DAILY 30 Days #30 tab 03/16/19 [Rx] Metoprolol Tartrate [Lopressor] 25 mg PO BID 30 Days #60 tab 03/16/19 [Rx] Sodium Bicarbonate Tab 650 mg PO DAILY 30 Days #30 tab 03/16/19 [Rx] traMADol HCl [Ultram] 50 mg PO QID PRN #12 tab 03/16/19 [Rx] Aspirin 81 mg PO DAILY 30 Days #30 chew 03/23/19 [Rx] Follow up Appointment(s)/Referral(s): Bre Sanchez FNPBC [REFERRING] - 03/31/19 10:45 am () Jovan Dangelo DO [STAFF PHYSICIAN] - 04/28/19 (Previously scheduled appointment) Activity/Diet/Wound Care/Special Instructions: Activity Limited until follow-up Follow-up with primary care provider this week upon discharge Continue current diet Continue with fluid restrictions a 60-70 mL daily follow-up with nephrology upon discharge as discussed and scheduled on previous admission Discharge Disposition: HOME SELF-CARE
--- NOTE | 2019-03-31 05:08 | CDI ---
Documentation Clarification Form Date: 03/31/19 From: Chilo Jordan Phone: If you have a question about this query, please contact Sabrina Hurst, Hospitality Ambassador at [phone] between 8am and 5pm. Admit Date: 03/21/19 Discharge Date:03/23/19 Patient Name: Ti Dunham Visit Number: [id number] ATTENTION: The Clinical Documentation Specialists (CDI) and [facility] Coding Staff appreciate your assistance in clarifying documentation. Please respond to the clarification below the line at the bottom and electronically sign. The CDI & [facility] Coding staff will review the response and follow-up if needed. Please note: Queries are made part of the Legal Health Record. If you have any questions, please contact the author of this message via ITS. Dear Dr Obed mayorga, CHF is documented in the chart as Chronic heart failure with systolic dysfunction. History/Risk Factors: NSTEMI, CHF,Atrial fibrillation, Hyponatremia possibly SIADH Clinical Indicators: Interstitial pattern seen with bilateral consolidation and small pleural effusion greater on the right. VS/Pulse OX: 99 & 100 BNP : NA Echocardiogram Results:Most recent echocardiogram done in 12/11/2018 was EF less than 20%, moderate to severe tricuspid regurgitation, mild pulmonary hypertension, RVSP 36.89. Chest X Ray:03/19 There is evidence of mild congestive heart failure.There is increasing right pleural fluid and right basilar infiltrate compared to last exam. 03/22 X ray- Basilar infiltrate and small effusion is stable correlate for CHF versus pneumonia. Treatment: IV lasix. Chronic congestive heart failure with systolic dysfunction, ejection fraction In your professional opinion, can you please clarify the acuity of CHF ? Systolic Heart Failure: Acute Chronic Acute on Chronic Other, please specify Unable to Determine Systolic Heart Failure: Acute on Chronic MTDD
== END 2019-03-23 14:12 | disposition home or self-care (01) | DRG 280 ==
LOC: EC 03:31 → 3SCARD 05:29 → OBSVTOIN 03-21 09:14
PROVIDERS: ADMIT Hospitalist; ATTEND Hospitalist
DX: I21.4 Non-ST elevation (NSTEMI) myocardial infarction (principal); I50.23 Acute on chronic systolic (congestive) heart failure; I48.20 Chronic atrial fibrillation, unspecified; E22.2 Syndrome of inappropriate secretion of antidiuretic hormone; G43.909 Migraine, unspecified, not intractable, without status migrainosus; F32.9 Major depressive disorder, single episode, unspecified; F43.10 Post-traumatic stress disorder, unspecified; F41.9 Anxiety disorder, unspecified; E87.5 Hyperkalemia; E66.9 Obesity, unspecified; I27.20 Pulmonary hypertension, unspecified; I07.1 Rheumatic tricuspid insufficiency; E83.52 Hypercalcemia; J45.909 Unspecified asthma, uncomplicated; E78.5 Hyperlipidemia, unspecified; E86.1 Hypovolemia; I25.110 Atherosclerotic heart disease of native coronary artery with unstable angina pectoris; M19.90 Unspecified osteoarthritis, unspecified site; G47.33 Obstructive sleep apnea (adult) (pediatric); I25.5 Ischemic cardiomyopathy; E11.42 Type 2 diabetes mellitus with diabetic polyneuropathy; L40.9 Psoriasis, unspecified; I11.0 Hypertensive heart disease with heart failure; K21.9 Gastro-esophageal reflux disease without esophagitis; I95.9 Hypotension, unspecified; Z88.8 Allergy status to other drugs, medicaments and biological substances; Z91.048 Other nonmedicinal substance allergy status; Z86.73 Personal history of transient ischemic attack (TIA), and cerebral infarction without residual deficits; Z86.718 Personal history of other venous thrombosis and embolism; I25.2 Old myocardial infarction; Z87.01 Personal history of pneumonia (recurrent); Z86.14 Personal history of Methicillin resistant Staphylococcus aureus infection; Z87.440 Personal history of urinary (tract) infections; Z79.01 Long term (current) use of anticoagulants; Z79.02 Long term (current) use of antithrombotics/antiplatelets; Z79.4 Long term (current) use of insulin; Z79.82 Long term (current) use of aspirin; Z79.899 Other long term (current) drug therapy; Z88.6 Allergy status to analgesic agent; Z88.1 Allergy status to other antibiotic agents; Z91.041 Radiographic dye allergy status; Z88.5 Allergy status to narcotic agent; Z88.0 Allergy status to penicillin; Z91.013 Allergy to seafood; Z87.11 Personal history of peptic ulcer disease; Z87.09 Personal history of other diseases of the respiratory system; Z90.49 Acquired absence of other specified parts of digestive tract; Z95.5 Presence of coronary angioplasty implant and graft; Z95.810 Presence of automatic (implantable) cardiac defibrillator; Z98.890 Other specified postprocedural states; Z90.79 Acquired absence of other genital organ(s); Z82.49 Family history of ischemic heart disease and other diseases of the circulatory system; Z83.3 Family history of diabetes mellitus; Z82.0 Family history of epilepsy and other diseases of the nervous system; Z80.1 Family history of malignant neoplasm of trachea, bronchus and lung; Z86.74 Personal history of sudden cardiac arrest; Z86.711 Personal history of pulmonary embolism; Z68.32 Body mass index [BMI] 32.0-32.9, adult; Z91.19 Patient's noncompliance with other medical treatment and regimen; Z86.2 Personal history of diseases of the blood and blood-forming organs and certain disorders involving the immune mechanism; Z91.5 Personal history of self-harm
CPT/HCPCS: 36415; 71045; 80048; 80053; 80061; 83735; 84484; 85025; 85610; 85730; 93005; 94760; 96361; 96374; 96375; 96376; 99285

== ENCOUNTER 2019-03-25 10:44 | Inpatient (IN) | payer MEDICARE, OTHER ==
--- NOTE | 2019-03-25 11:30 | ED ---
General Adult HPI - General Chief complaint: Chest Pain Stated complaint: Chest pain Time Seen by Provider: 03/25/19 10:50 Source: patient, RN notes reviewed, old records reviewed Mode of arrival: ambulatory Limitations: no limitations - History of Present Illness Initial comments: This is a 43-year-old male who presents emergency Department with past medical history significant for multiple MIs with stent placements. Patient also has a history of a CVA. Patient also has history of high blood pressure high cholesterol. Patient states he had a near syncopal episode yesterday and was sent to the ER and they evaluated him and discharged him home. Patient states last night in the middle the night he started having chest pain is been having ever since. Patient states he is also short of breath but he denies any diaphoretic episodes and he denies any radiation of the pain. Patient states this is typical of his cardiac pain. Patient denies any abdominal pain patient denies nausea vomiting diarrhea. Patient denies any fever chills or cough per patient denies any lightheadedness or dizziness. Patient denies any numbness or weakness. - Related Data Home Medications Medication Instructions Recorded Confirmed Pantoprazole [Protonix] 40 mg PO DAILY 04/01/18 03/19/19 Nitroglycerin Sl Tabs [Nitrostat] 0.4 mg SUBLINGUAL Q5M PRN 11/08/18 03/19/19 Tamsulosin HCl [Flomax] 0.4 mg PO DAILY 11/08/18 03/19/19 Apixaban [Eliquis] 5 mg PO BID 02/27/19 03/19/19 Clopidogrel [Plavix] 75 mg PO DAILY 02/27/19 03/19/19 Albuterol Sulfate [Ventolin HFA] 2 puff INHALATION RT-Q6H PRN 03/08/19 03/19/19 Bumetanide [BUMEX] 2 mg PO DAILY 03/08/19 03/19/19 DULoxetine HCL [Cymbalta] 60 mg PO BID 03/08/19 03/19/19 Gabapentin [Neurontin] 100 mg PO TID 03/08/19 03/19/19 Insulin Glargine [Lantus] 30 units SQ HS 03/08/19 03/19/19 Primidone [Mysoline] 100 mg PO BID 03/08/19 03/19/19 Rosuvastatin [Crestor] 10 mg PO DAILY 03/08/19 03/19/19 Previous Rx's Medication Instructions Recorded ARIPiprazole [Abilify] 2.5 mg PO DAILY 30 Days #30 tab 03/16/19 Metoprolol Tartrate [Lopressor] 25 mg PO BID 30 Days #60 tab 03/16/19 Sodium Bicarbonate Tab 650 mg PO DAILY 30 Days #30 tab 03/16/19 traMADol HCl [Ultram] 50 mg PO QID PRN #12 tab 03/16/19 Aspirin 81 mg PO DAILY 30 Days #30 chew 03/23/19 Allergies Allergy/AdvReac Type Severity Reaction Status Date / Time erythromycin base Allergy Severe Rash/Hives Verified 03/25/19 10:47 [Erythromycin Base] cephalexin monohydrate Allergy Unknown Rash/Hives Verified 03/25/19 10:47 [From Keflex] codeine Allergy Unknown Unknown Verified 03/25/19 10:47 meclizine Allergy Unknown Unknown Verified 03/25/19 10:47 Penicillins Allergy Unknown Rash/Hives Verified 03/25/19 10:47 shellfish derived Allergy Unknown Anaphylaxis Verified 03/25/19 10:47 adhesive tape Allergy Rash/Hives Verified 03/25/19 10:47 Fish Containing Products Allergy Anaphylaxis Verified 03/25/19 10:47 [Fish] Iodinated Contrast Media Allergy Anaphylaxis Verified 03/25/19 10:47 silver Allergy Rash/Hives Verified 03/25/19 10:47 [From Tegaderm AG Mesh] naproxen AdvReac Unknown Compromises Verified 03/25/19 10:47 Kidney Function atorvastatin calcium AdvReac Myalgia Verified 03/25/19 10:47 [From Lipitor] hydrocodone [From [place]] AdvReac Rapid Verified 03/25/19 10:47 Heart Rate Review of Systems ROS Statement: Those systems with pertinent positive or pertinent negative responses have been documented in the HPI. ROS Other: All systems not noted in ROS Statement are negative. Past Medical History Past Medical History: Asthma, Coronary Artery Disease (CAD), Chest Pain / Angina, Heart Failure, CVA/TIA, Diabetes Mellitus, Deep Vein Thrombosis (DVT), GERD/Reflux, Hyperlipidemia, Hypertension, Myocardial Infarction (ND), Osteoarth ritis (OA), Pneumonia, Skin Disorder, Sleep Apnea/CPAP/BIPAP Additional Past Medical History / Comment(s): multiple vessel CAD, ischemic cardiomyopathy, diabetic neuropathy bilateral hands and feet, hypertensive cardiovascular disease, SHELIA with no device, chronic gastritis, degenerative disc disease, chronic back pain, depression with hx of suicide attempts, gastroparesis, psoriasis, UTI, migraines, TIA, PUD, hiatal hernia, L rotator cuff tear, bronchitis, pseudoaneurysm L groin post procedure. 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 Date of Last Stent Placement:: 10/2018 Type of Cardiac Device: Biventricular Pacemaker, AICD Device Placement Date:: 09/19/15 Past Psychological History: Anxiety, Depression, PTSD Smoking Status: Never smoker Past Alcohol Use History: None Reported Past Drug Use History: None Reported - Past Family History Mother Family Medical History: Coronary Artery Disease (CAD), Myocardial Infarction (M I) Additional Family Medical History / Comment(s): 7 ND and faulty heart valve. Pt does not know the age when mother had her ND's. Father History Unknown: Yes Additional Family Medical History / Comment(s): Does not know who father is. Brother(s) Family Medical History: Cancer, Congestive Heart Failure (CHF), Myocardial Infarction (ND) Additional Family Medical History / Comment(s): Parkinsons. Pt does not know at what age his brother had an ND. Patient's other brother has lung CA Patient has Family Medical History: No Reported History Additional Family Medical History / Comment(s): There is a strong family history for heart disease, hypertension, and diabetes. General Exam - General Exam Comments Initial Comments: GENERAL: Patient is well-developed and well-nourished. Patient is nontoxic and well- hydrated and is in mild distress. ENT: Neck is soft and supple. No significant lymphadenopathy is noted. Oropharynx is clear. Moist mucous membranes. Neck has full range of motion without eliciting any pain. EYES: The sclera were anicteric and conjunctiva were pink and moist. Extraocular movements were intact and pupils were equal round and reactive to light. Eyelids were unremarkable. PULMONARY: Unlabored respirations. Good breath sounds bilaterally. No audible rales rhonchi or wheezing was noted. CARDIOVASCULAR: There is a regular rate and rhythm without any murmurs gallops or rubs. ABDOMEN: Soft and nontender with normal bowel sounds. No palpable organomegaly was noted. There is no palpable pulsatile mass. SKIN: Skin is clear with no lesions or rashes and otherwise unremarkable. NEUROLOGIC: Patient is alert and oriented x3. Cranial nerves II through XII are grossly intact. Motor and sensory are also intact. Normal speech, volume and content. Symmetrical smile. Cerebellar exam grossly intact. MUSCULOSKELETAL: Normal extremities with adequate strength and full range of motion. No lower extremity swelling or edema. No calf tenderness. LYMPHATICS: No significant lymphadenopathy is noted PSYCHIATRIC: Normal psychiatric evaluation. Limitations: no limitations Course Vital Signs 03/25/19 03/25/19 10:47 12:00 Temperature 97.8 F Pulse Rate 114 H 111 H Respiratory 20 21 Rate Blood Pressure 136/91 118/86 O2 Sat by Pulse 99 99 Oximetry Medical Decision Making - Medical Decision Making EKG shows a paced rhythm at 123 bpm QRS of 118 QT interval 300 QTC is 429. Patient's EKG shows no ST segment elevation or depression. Chest x-ray shows a small right-sided pleural effusion with a little mild pulmonary edema. I spoke with Dr. Hoskins agreed to admit the patient admitted the patient wrote admitting orders I continued the Nitropaste and aspirin and Lasix on the floor. I did not give the patient any heparin because the patient was on eliquis - Lab Data Result diagrams: 03/25/19 11:53 03/25/19 11:53 Lab Results 03/25/19 03/25/19 03/25/19 Range/Units 11:53 11:53 11:53 WBC 3.7 L (3.8-10.6) k/uL RBC 4.25 L (4.30-5.90) m/uL Hgb 11.7 L (13.0-17.5) gm/dL Hct 37.6 L (39.0-53.0) % MCV 88.4 (80.0-100.0) fL MCH 27.7 (25.0-35.0) pg MCHC 31.3 (31.0-37.0) g/dL RDW 20.4 H (11.5-15.5) % Plt Count 265 (150-450) k/uL Neutrophils % 73 % Lymphocytes % 15 % Monocytes % 6 % Eosinophils % 2 % Basophils % 1 % Neutrophils # 2.7 (1.3-7.7) k/uL Lymphocytes # 0.6 L (1.0-4.8) k/uL Monocytes # 0.2 (0-1.0) k/uL Eosinophils # 0.1 (0-0.7) k/uL Basophils # 0.1 (0-0.2) k/uL Hypochromasia Moderate Poikilocytosis Slight Anisocytosis Moderate PT 11.6 (9.0-12.0) sec INR 1.1 (<1.2) APTT 24.0 (22.0-30.0) sec Sodium 134 L (137-145) mmol/L Potassium 3.9 (3.5-5.1) mmol/L Chloride 100 (98-107) mmol/L Carbon Dioxide 25 (22-30) mmol/L Anion Gap 9 mmol/L BUN 23 H (9-20) mg/dL Creatinine 0.87 (0.66-1.25) mg/dL Est GFR (CKD-EPI)AfAm >90 (>60 ml/min/1.73 sqM) Est GFR (CKD-EPI)NonAf >90 (>60 ml/min/1.73 sqM) Glucose 251 H (74-99) mg/dL Calcium 8.7 (8.4-10.2) mg/dL Magnesium 1.7 (1.6-2.3) mg/dL Total Bilirubin 0.7 (0.2-1.3) mg/dL AST 19 (17-59) U/L ALT 26 (21-72) U/L Alkaline Phosphatase 161 H (38-126) U/L Troponin I (0.000-0.034) ng/mL Total Protein 5.6 L (6.3-8.2) g/dL Albumin 3.2 L (3.5-5.0) g/dL 03/25/19 Range/Units 11:53 WBC (3.8-10.6) k/uL RBC (4.30-5.90) m/uL Hgb (13.0-17.5) gm/dL Hct (39.0-53.0) % MCV (80.0-100.0) fL MCH (25.0-35.0) pg MCHC (31.0-37.0) g/dL RDW (11.5-15.5) % Plt Count (150-450) k/uL Neutrophils % % Lymphocytes % % Monocytes % % Eosinophils % % Basophils % % Neutrophils # (1.3-7.7) k/uL Lymphocytes # (1.0-4.8) k/uL Monocytes # (0-1.0) k/uL Eosinophils # (0-0.7) k/uL Basophils # (0-0.2) k/uL Hypochromasia Poikilocytosis Anisocytosis PT (9.0-12.0) sec INR (<1.2) APTT (22.0-30.0) sec Sodium (137-145) mmol/L Potassium (3.5-5.1) mmol/L Chloride (98-107) mmol/L Carbon Dioxide (22-30) mmol/L Anion Gap mmol/L BUN (9-20) mg/dL Creatinine (0.66-1.25) mg/dL Est GFR (CKD-EPI)AfAm (>60 ml/min/1.73 sqM) Est GFR (CKD-EPI)NonAf (>60 ml/min/1.73 sqM) Glucose (74-99) mg/dL Calcium (8.4-10.2) mg/dL Magnesium (1.6-2.3) mg/dL Total Bilirubin (0.2-1.3) mg/dL AST (17-59) U/L ALT (21-72) U/L Alkaline Phosphatase (38-126) U/L Troponin I 0.017 (0.000-0.034) ng/mL Total Protein (6.3-8.2) g/dL Albumin (3.5-5.0) g/dL Disposition Clinical Impression: Pulmonary edema, Unstable angina Disposition: ADMITTED IP TO THIS HOSP Referrals: Junie New MD [Primary Care Provider] - 1-2 days Time of Disposition: 12:56
[2019-03-25] MEDS ORDERED: ASPIRIN 81 MG PO STA (11:59)
[2019-03-25] MEDS ORDERED: NITROGLYCERIN OINT 1 INCH/GM PACKET TOPICAL STA (11:59)
[2019-03-25 12:13] LABS: Anisocytosis Moderate; Basophils # (A) 0.1 k/uL (0-0.2); Basophils % (A) 1 %; Eosinophils # (A) 0.1 k/uL (0-0.7); Eosinophils % (A) 2 %; HCT 37.6 % (39.0-53.0); HGB 11.7 gm/dL (13.0-17.5); Hypochromasia Moderate; Lymphocytes # (A) 0.6 k/uL (1.0-4.8); Lymphocytes % (A) 15 %; MCH 27.7 pg (25.0-35.0); MCHC 31.3 g/dL (31.0-37.0); MCV 88.4 fL (80.0-100.0); Mean Platelet Volume 6.9; Monocytes # (A) 0.2 k/uL (0-1.0); Monocytes % (A) 6 %; Neutrophils # (A) 2.7 k/uL (1.3-7.7); Neutrophils % (A) 73 %; Platelet Count 265 k/uL (150-450); Poikilocytosis Slight; RBC 4.25 m/uL (4.30-5.90); RDW 20.4 % (11.5-15.5); WBC 3.7 k/uL (3.8-10.6)
[2019-03-25 12:39] LABS: INR 1.1 (<1.2); Prothrombin Time 11.6 sec (9.0-12.0)
--- NOTE | 2019-03-25 12:47 | XR ---
EXAMINATION TYPE: XR chest 2V DATE OF EXAM: 03/25/2019 COMPARISON: 03/22/2019 TECHNIQUE: PA and lateral views submitted. HISTORY: Chest pain FINDINGS: Left-sided cardiac device seen and there is coronary artery stenting. Bilateral subsegmental consolid ation small right effusion. No pneumothorax. Arthropathy of the shoulders. Interstitial prominence no kedar. The heart is enlarged. IMPRESSION: Bilateral consolidation with small right pleural effusion. Correlate for pneumonia versus CHF.
[2019-03-25 12:48] LABS: ALT 26 U/L (21-72); AST 19 U/L (17-59); African American GFR (CKD) >90 (>60 ml/min/1.73 sqM); Albumin 3.2 g/dL (3.5-5.0); Alkaline Phosphatase 161 U/L (38-126); Anion Gap 9 mmol/L; Blood Urea Nitrogen 23 mg/dL (9-20); Calcium 8.7 mg/dL (8.4-10.2); Carbon Dioxide 25 mmol/L (22-30); Chloride 100 mmol/L (98-107); Glucose 251 mg/dL (74-99); Magnesium 1.7 mg/dL (1.6-2.3); Potassium 3.9 mmol/L (3.5-5.1); Sodium 134 mmol/L (137-145); Total Bilirubin 0.7 mg/dL (0.2-1.3); Total Protein 5.6 g/dL (6.3-8.2)
[2019-03-25] MEDS ORDERED: FUROSEMIDE 10 MG/ML 4 ML VIAL IV STA (12:54)
[2019-03-25] MEDS: NITROGLYCERIN SL TABS 0.4 MG TAB SUBLINGUAL PRN ×3 (15:06→15:18)
[2019-03-25 15:23] VITALS: BMI 39.2
[2019-03-25] MEDS ORDERED: HYDROmorphone 0.5 MG/0.5 ML SYRINGE IVP STA (15:32)
[2019-03-25] MEDS ORDERED: NITROGLYCERIN SL TABS 0.4 MG TAB SUBLINGUAL PRN (15:41)
[2019-03-25] MEDS ORDERED: traMADol 50 MG TAB PO PRN (15:41)
[2019-03-25] MEDS ORDERED: ALBUTEROL NEBULIZED 2.5 MG/3 ML INHALATION PRN (15:41)
--- NOTE | 2019-03-25 15:48 | P.HPIM ---
History of Present Illness H&P Date: 03/25/19 Chief Complaint: Chest pain 43-year-old male who presents emergency Department with past medical history significant for multiple MIs with stent placements. Patient also has a history of a CVA. Patient also has history of high blood pressure high cholesterol. Patient states he had a near syncopal episode yesterday and was sent to the ER and they evaluated him and discharged him home. Patient states last night in the middle the night he started having chest pain is been having ever since. Patient states he is also short of breath but he denies any diaphoretic episodes and he denies any radiation of the pain. Patient states this is typical of his cardiac pain. Patient denies any abdominal pain patient denies nausea vomiting diarrhea. Patient denies any fever chills or cough per patient denies any lightheadedness or dizziness. Patient denies any numbness or weakness. On selective care unit patient had another episode of chest pain which improved with 3 sublingual nitro Review of Systems REVIEW OF SYSTEMS: CONSTITUTIONAL: No fever, no malaise, no fatigue. HEENT: No recent visual problems or hearing problems. Denied any sore throat. CARDIOVASCULAR: Positive for chest pain, no orthopnea, PND, no palpitations, patient did have an episode of syncope yesterday. PULMONARY: No shortness of breath, no cough, no hemoptysis. GASTROINTESTINAL: No diarrhea, no nausea, no vomiting, no abdominal pain. NEUROLOGICAL: No headaches, no weakness, no numbness. HEMATOLOGICAL: Denies any bleeding or petechiae. GENITOURINARY: Denies any burning micturition, frequency, or urgency. MUSCULOSKELETAL/RHEUMATOLOGICAL: Denies any joint pain, swelling, or any muscle pain. ENDOCRINE: Denies any polyuria or polydipsia. The rest of the 14-point review of systems is negative. Past Medical History Past Medical History: Atrial Fibrillation, Asthma, Coronary Artery Disease (CAD), Chest Pain / Angina, Heart Failure, CVA/TIA, Diabetes Mellitus, Deep Vein Thrombosis (DVT), GERD/Reflux, Hyperlipidemia, Hypertension, Myocardial Infarction (NC), Osteoarthritis (OA), Pneumonia, Skin Disorder, Sleep Apnea/CPAP/BIPAP Additional Past Medical History / Comment(s): Pt recently admitted to [facility] on 03/21/19 with chest pain possible unstable angina possible NSTEMI, hyponatremia, hypercalcemia. Other hx: multiple vessel CAD, ischemic cardiomyopathy, IDDM type II, diabetic neuropathy bilateral hands and feet, hypertensive cardiovascular disease, past cardiac arrest, SHELIA with no device, bronchitis, PE L lung, DVT L leg, chronic gastritis, degenerative disc disease, chronic back pain, depression with hx of suicide attempts with insulin, gastroparesis, p soriasis, UTI, migraines, TIA, PUD, hiatal hernia, L rotator cuff tear, bronchitis, poor circulation, pseudoaneurysm L groin post procedure, CVA 05/15/18 with TPA administration and TIAs x2 Last Myocardial Infarction Date:: October 2017 History of Any Multi-Drug Resistant Organisms: MRSA Date of last positivie culture/infection: 11/05/17 (Culture done at [facility]) MDRO Source:: legs Past Surgical History: AICD, Appendectomy, Cholecystectomy, Heart Catheteriz ation With Stent, Hernia Repair Additional Past Surgical History / Comment(s): Pt has had multiple cardiac procedures- caths/stents/PTCA, last stent placed at [facility] -October2017, SAVANNAH, R inguinal hernia repair, umbilical hernia repair, 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 Date of Last Stent Placement:: 10/2018 Type of Cardiac Device: Biventricular Pacemaker, AICD Device Placement Date:: 09/19/15 Smoking Status: Never smoker - Past Family History Mother Family Medical History: Coronary Artery Disease (CAD), Myocardial Infarction (NC) Additional Family Medical History / Comment(s): 7 NC and faulty heart valve. Pt does not know the age when mother had her NC's. Father History Unknown: Yes Additional Family Medical History / Comment(s): Does not know who father is. Brother(s) Family Medical History: Cancer, Congestive Heart Failure (CHF), Myocardial Infarction (NC) Additional Family Medical History / Comment(s): Parkinsons. Pt does not know at what age his brother had an NC. Patient's other brother has lung CA Patient has Family Medical History: No Reported History Additional Family Medical History / Comment(s): There is a strong family history for heart disease, hypertension, and diabetes. Medications and Allergies Home Medications Medication Instructions Recorded Confirmed Type Pantoprazole [Protonix] 40 mg PO DAILY 04/01/18 03/25/19 History Nitroglycerin Sl Tabs [Nitrostat] 0.4 mg SUBLINGUAL Q5M PRN 11/08/18 03/25/19 History Tamsulosin HCl [Flomax] 0.4 mg PO DAILY 11/08/18 03/25/19 History Apixaban [Eliquis] 5 mg PO BID 02/27/19 03/25/19 History Clopidogrel [Plavix] 75 mg PO DAILY 02/27/19 03/25/19 History Albuterol Sulfate [Ventolin HFA] 2 puff INHALATION RT-Q6H PRN 03/08/19 03/25/19 History Bumetanide [BUMEX] 2 mg PO BID 03/08/19 03/25/19 History DULoxetine HCL [Cymbalta] 60 mg PO BID 03/08/19 03/25/19 History Gabapentin [Neurontin] 100 mg PO TID 03/08/19 03/25/19 History Insulin Glargine [Lantus] 30 units SQ HS 03/08/19 03/25/19 History Primidone [Mysoline] 100 mg PO BID 03/08/19 03/25/19 History Rosuvastatin [Crestor] 10 mg PO DAILY 03/08/19 03/25/19 History ARIPiprazole [Abilify] 2.5 mg PO DAILY 30 Days #30 tab 03/16/19 03/25/19 Rx Metoprolol Tartrate [Lopressor] 25 mg PO BID 30 Days #60 tab 03/16/19 03/25/19 Rx Sodium Bicarbonate Tab 650 mg PO DAILY 30 Days #30 tab 03/16/19 03/25/19 Rx traMADol HCl [Ultram] 50 mg PO QID PRN #12 tab 03/16/19 03/25/19 Rx Aspirin 81 mg PO DAILY 30 Days #30 chew 03/23/19 03/25/19 Rx INSULIN ASPART (NovoLOG) [NovoLOG See Protocol SQ AC-TID 03/25/19 03/25/19 History (formulary)] Allergies Allergy/AdvReac Type Severity Reaction Status Date / Time erythromycin base Allergy Severe Rash/Hives Verified 03/25/19 13:54 [Erythromycin Base] cephalexin monohydrate Allergy Unknown Rash/Hives Verified 03/25/19 13:54 [From Keflex] codeine Allergy Unknown Unknown Verified 03/25/19 13:54 meclizine Allergy Unknown Unknown Verified 03/25/19 13:54 Penicillins Allergy Unknown Rash/Hives Verified 03/25/19 13:54 shellfish derived Allergy Unknown Anaphylaxis Verified 03/25/19 13:54 adhesive tape Allergy Rash/Hives Verified 03/25/19 13:54 Fish Containing Products Allergy Anaphylaxis Verified 03/25/19 13:54 [Fish] Iodinated Contrast Media Allergy Anaphylaxis Verified 03/25/19 13:54 silver Allergy Rash/Hives Verified 03/25/19 13:54 [From Tegaderm AG Mesh] naproxen AdvReac Unknown Compromises Verified 03/25/19 13:54 Kidney Function atorvastatin calcium AdvReac Myalgia Verified 03/25/19 13:54 [From Lipitor] hydrocodone [From [place]] AdvReac Rapid Verified 03/25/19 13:54 Heart Rate Physical Exam Vitals: Vital Signs Temp Pulse Resp BP Pulse Ox 03/25/19 14:00 111 H 16 118/78 99 03/25/19 13:30 108 H 12 136/87 97 03/25/19 13:00 114 H 12 124/87 96 03/25/19 12:00 111 H 21 118/86 99 03/25/19 10:47 97.8 F 114 H 20 136/91 99 Intake and Output 03/25/19 03/25/19 03/25/19 06:59 14:59 22:59 Output Total 700 Balance -700 Output: Urine 700 Other: Weight 112.491 kg - Constitutional General appearance: Present: average body habitus, cooperative, no acute distress - EENT Eyes: Present: anicteric sclerae, EOMI, PERRLA, normal appearance ENT: Present: hearing grossly normal, normal oropharynx Ears: bilateral: normal - Neck Neck: Present: normal ROM. Absent: lymphadenopathy, rigidity, thyromegaly Carotids: negative: bruit present Thyroid: bilateral: normal size, negative: enlarged, nodule - Respiratory Respiratory: bilateral: CTA, negative: rales, rhonchi, wheezing - Cardiovascular Rhythm: regular Heart sounds: normal: S1, S2 Abnormal Heart Sounds: Absent: systolic murmur, diastolic murmur - Gastrointestinal General gastrointestinal: Present: normal bowel sounds, soft. Absent: distended, organomegaly, tenderness - Genitourinary Genitourinary Comment(s): deferred - Integumentary Integumentary: Present: normal turgor. Absent: jaundiced, rash, ulcer - Neurologic Neurologic: Present: CNII-XII intact. Absent: focal deficits - Musculoskeletal Musculoskeletal: Present: gait normal, strength equal bilaterally - Psychiatric Psychiatric: Present: A&O x's 3, appropriate affect, intact judgment & insight Results CBC & Chem 7: 03/25/19 11:53 03/25/19 11:53 Labs: Abnormal Lab Results - Last 24 Hours (Table) 03/25/19 03/25/19 Range/Units 11:53 11:53 WBC 3.7 L (3.8-10.6) k/uL RBC 4.25 L (4.30-5.90) m/uL Hgb 11.7 L (13.0-17.5) gm/dL Hct 37.6 L (39.0-53.0) % RDW 20.4 H (11.5-15.5) % Lymphocytes # 0.6 L (1.0-4.8) k/uL Sodium 134 L (137-145) mmol/L BUN 23 H (9-20) mg/dL Glucose 251 H (74-99) mg/dL Alkaline Phosphatase 161 H (38-126) U/L Total Protein 5.6 L (6.3-8.2) g/dL Albumin 3.2 L (3.5-5.0) g/dL Thrombosis Risk Factor Assmnt - Choose All That Apply Any of the Below Risk Factors Present?: Yes Each Factor Represents 1 point: Age 41-60 years, Obesity (BMI >25) Each Risk Factor Represents 3 Points: History of DVT/PE Other congenital or acquired thrombophilia - If yes, enter type in comment: No Thrombosis Risk Factor Assessment Total Risk Factor Score: 5 Thrombosis Risk Factor Assessment Level: High Risk Assessment and Plan Assessment: 1. Chest pain/unstable angina - We will admit patient to telemetry and monitor cardiac enzymes and EKG; we'll continue with aspirin 81 mg daily, Eliquis 5 mg twice a day and Plavix 75 mg daily - Continue to use sublingual nitroglycerin as needed along with Nitropaste - We will consult cardiology for further recommendations 2. Pulmonary edema - Patient takes Bumex 2 mg twice a day at home; we will hold oral Bumex and start patient on Bumex 1 mg IV every 12 hours; we will monitor strict GEOVANNA's, daily weights, renal function and electrolytes - Recommend low-salt and fluid restricted diet - Further recommendations after patient seen and evaluated by cardiology and possible echocardiogram 3. Hyperglycemia without acidosis/diabetes mellitus - We will restart patient on home dose of Lantus 30 units subcu daily at bedtime along with insulin sliding scale 4 times a day before meals and at bedtime with Humalog sliding scale 4. Mild renal injury; patient's likely fluid overloaded; we will continue with Bumex as indicated above; we will monitor renal function closely 5. Hypertension; stable on home dose of beta blockers metoprolol 25 mg twice a day 6. Hyperlipidemia; continue with home dose of Crestor 7. CVA/TIA; patient remains on aspirin, Plavix and Crestor 8. DVT prophylaxis; SCDs/systemic anticoagulation CODE STATUS; full code Time with Patient: Greater than 30
[2019-03-25] MEDS: GABAPENTIN 100 MG CAP PO SCH ×2 (16:23→21:51)
[2019-03-25 16:59] LABS: Glucose,Whole Blood 118 mg/dL (75-99)
[2019-03-25] MEDS: NITROGLYCERIN OINT 1 INCH/GM PACKET TOPICAL SCH ×2 (17:06→23:03)
[2019-03-25] MEDS: INSULIN DETEMIR (LEVEMIR) 100 UNIT/ML SYR SQ SCH (20:56)
[2019-03-25 20:57] LABS: Glucose,Whole Blood 176 mg/dL (75-99)
[2019-03-25] MEDS: FUROSEMIDE 10 MG/ML 4 ML VIAL IV SCH (21:46)
[2019-03-25] MEDS: PRIMIDONE 50 MG TAB PO SCH (21:51)
[2019-03-25] MEDS: DULoxetine HCL 60 MG CAPSULE.DR PO SCH (21:52)
[2019-03-25] MEDS: METOPROLOL TARTRATE 25 MG TAB PO SCH (21:52)
[2019-03-25] MEDS: APIXABAN 5 MG TAB PO SCH (21:52)
[2019-03-26] MEDS: PANTOPRAZOLE 40 MG TABLET PO SCH (06:12)
[2019-03-26] MEDS: NITROGLYCERIN OINT 1 INCH/GM PACKET TOPICAL SCH ×4 (06:13→23:02)
[2019-03-26 06:23] LABS: Anisocytosis Moderate; Basophils % (A) 1 %; Eosinophils # (A) 0.1 k/uL (0-0.7); Eosinophils % (A) 2 %; HCT 36.3 % (39.0-53.0); HGB 10.9 gm/dL (13.0-17.5); Hypochromasia Marked; Lymphocytes # (A) 0.8 k/uL (1.0-4.8); Lymphocytes % (A) 21 %; MCH 26.9 pg (25.0-35.0); MCHC 30.2 g/dL (31.0-37.0); Mean Platelet Volume 6.7; Monocytes # (A) 0.3 k/uL (0-1.0); Monocytes % (A) 8 %; Neutrophils # (A) 2.3 k/uL (1.3-7.7); Neutrophils % (A) 64 %; Platelet Count 242 k/uL (150-450); Poikilocytosis Slight; RBC 4.07 m/uL (4.30-5.90); RDW 20.2 % (11.5-15.5); WBC 3.7 k/uL (3.8-10.6)
[2019-03-26 06:28] LABS: Glucose,Whole Blood 123 mg/dL (75-99)
[2019-03-26 06:40] LABS: African American GFR (CKD) >90 (>60 ml/min/1.73 sqM); Anion Gap 9 mmol/L; Blood Urea Nitrogen 22 mg/dL (9-20); Calcium 8.6 mg/dL (8.4-10.2); Carbon Dioxide 26 mmol/L (22-30); Chloride 101 mmol/L (98-107); Cholesterol 135 mg/dL (<200); Glucose 123 mg/dL (74-99); HDL Cholesterol 28 mg/dL (40-60); LDL Cholesterol,Calculated 83 mg/dL (0-99); Potassium 3.6 mmol/L (3.5-5.1); Sodium 136 mmol/L (137-145); Triglycerides 119 mg/dL (<150)
[2019-03-26] MEDS: ATORVASTATIN 20 MG TAB PO SCH (08:31)
[2019-03-26] MEDS: PRIMIDONE 50 MG TAB PO SCH ×2 (08:32→19:53)
[2019-03-26] MEDS: METOPROLOL TARTRATE 25 MG TAB PO SCH ×2 (08:32→19:46)
[2019-03-26] MEDS: APIXABAN 5 MG TAB PO SCH ×2 (08:32→19:46)
[2019-03-26] MEDS: GABAPENTIN 100 MG CAP PO SCH ×3 (08:32→19:46)
[2019-03-26] MEDS: TAMSULOSIN 0.4 MG CAP.ER.24H PO SCH (08:32)
[2019-03-26] MEDS: ARIPiprazole 5 MG TAB PO SCH (08:32)
[2019-03-26] MEDS: FUROSEMIDE 10 MG/ML 4 ML VIAL IV SCH ×2 (08:32→19:45)
[2019-03-26] MEDS: DULoxetine HCL 60 MG CAPSULE.DR PO SCH ×2 (08:32→19:46)
[2019-03-26] MEDS: ASPIRIN 81 MG PO SCH (08:32)
[2019-03-26] MEDS: CLOPIDOGREL 75 MG TAB PO SCH (08:32)
[2019-03-26] MEDS: SODIUM BICARBONATE TAB 650 MG TAB PO SCH (08:32)
[2019-03-26] MEDS ORDERED: ASPIRIN 325 MG TAB PO SCH (09:00)
[2019-03-26 11:53] LABS: Glucose,Whole Blood 99 mg/dL (75-99)
[2019-03-26] MEDS ORDERED: HYDROmorphone 0.5 MG/0.5 ML SYRINGE IVP STA (12:24)
--- NOTE | 2019-03-26 12:34 | P.PN ---
Subjective Progress Note Date: 03/26/19 Principal diagnosis: Chest pain/unstable angina 43-year-old male who presents emergency Department with past medical history significant for multiple MIs with stent placements. Patient also has a history of a CVA. Patient also has history of high blood pressure high cholesterol. Patient states he had a near syncopal episode yesterday and was sent to the ER and they evaluated him and discharged him home. Patient states last night in the middle the night he started having chest pain is been having ever since. Patient states he is also short of breath but he denies any diaphoretic episodes and he denies any radiation of the pain. Patient states this is typical of his cardiac pain. Patient denies any abdominal pain patient denies nausea vomiting diarrhea. Patient denies any fever chills or cough per patient denies any lightheadedness or dizziness. Patient denies any numbness or weakness. On selective care unit patient had another episode of chest pain which improved with 3 sublingual nitro 03/26/2019 Patient is seen and evaluated in room at bedside; continues to report repeated episodes of chest pain; cardiology evaluation is pending Vital signs remained stable with a temperature of 98, pulse 87, respiration 18 and blood pressure 117/73 SpO2 of 98% on room air Lab review shows a white blood count of 3.7 with hemoglobin of 10.9, platelets are stable at 242; sodium of 136, potassium 3.6; troponin peaked at 0.035 Patient remains on Nitro-Bid ointment along with anticoagulation with Eliquis; await cardiology to see patient and make further recommendations Objective - Vital Signs Vital signs: Vital Signs Temp 98 F 03/26/19 08:00 Pulse 94 03/26/19 08:00 Resp 16 03/26/19 08:00 BP 109/61 03/26/19 08:00 Pulse Ox 96 03/26/19 08:00 Intake & Output 03/25/19 03/26/19 03/26/19 18:59 06:59 18:59 Intake Total 240 Output Total 700 Balance -460 Weight 110.2 kg 109.9 kg Intake: Oral 240 Output: Urine 700 - Exam - Constitutional General appearance: Present: average body habitus, cooperative, no acute distress - EENT Eyes: Present: anicteric sclerae, EOMI, PERRLA, normal appearance ENT: Present: hearing grossly normal, normal oropharynx Ears: bilateral: normal - Neck Neck: Present: normal ROM. Absent: lymphadenopathy, rigidity, thyromegaly Carotids: negative: bruit present Thyroid: bilateral: normal size, negative: enlarged, nodule - Respiratory Respiratory: bilateral: CTA, negative: rales, rhonchi, wheezing - Cardiovascular Rhythm: regular Heart sounds: normal: S1, S2 Abnormal Heart Sounds: Absent: systolic murmur, diastolic murmur - Gastrointestinal General gastrointestinal: Present: normal bowel sounds, soft. Absent: distended, organomegaly, tenderness - Genitourinary Genitourinary Comment(s): deferred - Integumentary Integumentary: Present: normal turgor. Absent: jaundiced, rash, ulcer - Neurologic Neurologic: Present: CNII-XII intact. Absent: focal deficits - Musculoskeletal Musculoskeletal: Present: gait normal, strength equal bilaterally - Psychiatric Psychiatric: Present: A&O x's 3, appropriate affect, intact judgment & insight - Labs CBC & Chem 7: 03/26/19 05:54 03/26/19 05:54 Labs: Abnormal Lab Results - Last 24 Hours (Table) 03/25/19 03/25/19 03/25/19 Range/Units 11:53 11:53 16:57 WBC 3.7 L (3.8-10.6) k/uL RBC 4.25 L (4.30-5.90) m/uL Hgb 11.7 L (13.0-17.5) gm/dL Hct 37.6 L (39.0-53.0) % MCHC (31.0-37.0) g/dL RDW 20.4 H (11.5-15.5) % Lymphocytes # 0.6 L (1.0-4.8) k/uL Sodium 134 L (137-145) mmol/L BUN 23 H (9-20) mg/dL Glucose 251 H (74-99) mg/dL POC Glucose (mg/dL) 118 H (75-99) mg/dL Alkaline Phosphatase 161 H (38-126) U/L Troponin I (0.000-0.034) ng/mL Total Protein 5.6 L (6.3-8.2) g/dL Albumin 3.2 L (3.5-5.0) g/dL HDL Cholesterol (40-60) mg/dL 03/25/19 03/25/19 03/26/19 Range/Units 20:56 23:41 05:54 WBC (3.8-10.6) k/uL RBC (4.30-5.90) m/uL Hgb (13.0-17.5) gm/dL Hct (39.0-53.0) % MCHC (31.0-37.0) g/dL RDW (11.5-15.5) % Lymphocytes # (1.0-4.8) k/uL Sodium 136 L (137-145) mmol/L BUN 22 H (9-20) mg/dL Glucose 123 H (74-99) mg/dL POC Glucose (mg/dL) 176 H (75-99) mg/dL Alkaline Phosphatase (38-126) U/L Troponin I 0.035 H* (0.000-0.034) ng/mL Total Protein (6.3-8.2) g/dL Albumin (3.5-5.0) g/dL HDL Cholesterol 28 L (40-60) mg/dL 03/26/19 03/26/19 Range/Units 05:54 06:27 WBC 3.7 L (3.8-10.6) k/uL RBC 4.07 L (4.30-5.90) m/uL Hgb 10.9 L (13.0-17.5) gm/dL Hct 36.3 L (39.0-53.0) % MCHC 30.2 L (31.0-37.0) g/dL RDW 20.2 H (11.5-15.5) % Lymphocytes # 0.8 L (1.0-4.8) k/uL Sodium (137-145) mmol/L BUN (9-20) mg/dL Glucose (74-99) mg/dL POC Glucose (mg/dL) 123 H (75-99) mg/dL Alkaline Phosphatase (38-126) U/L Troponin I (0.000-0.034) ng/mL Total Protein (6.3-8.2) g/dL Albumin (3.5-5.0) g/dL HDL Cholesterol (40-60) mg/dL Assessment and Plan Assessment: 1. Chest pain/unstable angina - We will admit patient to telemetry and monitor cardiac enzymes and EKG; we'll continue with aspirin 81 mg daily, Eliquis 5 mg twice a day and Plavix 75 mg daily - Continue to use sublingual nitroglycerin as needed along with Nitropaste - We will consult cardiology for further recommendations 2. Pulmonary edema - Patient takes Bumex 2 mg twice a day at home; we will hold oral Bumex and start patient on Bumex 1 mg IV every 12 hours; we will monitor strict GEOVNANA's, daily weights, renal function and electrolytes - Recommend low-salt and fluid restricted diet - Further recommendations after patient seen and evaluated by cardiology and possible echocardiogram 3. Hyperglycemia without acidosis/diabetes mellitus - We will restart patient on home dose of Lantus 30 units subcu daily at bedtime along with insulin sliding scale 4 times a day before meals and at bedtime with Humalog sliding scale 4. Mild renal injury; patient's likely fluid overloaded; we will continue with Bumex as indicated above; we will monitor renal function closely 5. Hypertension; stable on home dose of beta blockers metoprolol 25 mg twice a day 6. Hyperlipidemia; continue with home dose of Crestor 7. CVA/TIA; patient remains on aspirin, Plavix and Crestor 8. DVT prophylaxis; SCDs/systemic anticoagulation CODE STATUS; full code Time with Patient: Greater than 30
[2019-03-26] MEDS: HYDROmorphone 0.5 MG/0.5 ML SYRINGE IVP PRN ×2 (16:37→19:46)
[2019-03-26 17:03] LABS: Glucose,Whole Blood 108 mg/dL (75-99)
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
[2019-03-26] MEDS: INSULIN DETEMIR (LEVEMIR) 100 UNIT/ML SYR SQ SCH (21:09)
[2019-03-26 21:11] LABS: Glucose,Whole Blood 147 mg/dL (75-99)
[2019-03-26 22:08] VITALS: RESP 18
[2019-03-26] MEDS ORDERED: LORazepam 0.5 MG TAB PO ONE (22:51)
[2019-03-27] MEDS: HYDROmorphone 0.5 MG/0.5 ML SYRINGE IVP PRN ×4 (00:12→12:55)
[2019-03-27] MEDS: NITROGLYCERIN OINT 1 INCH/GM PACKET TOPICAL SCH ×2 (04:46→11:21)
[2019-03-27 05:34] LABS: Glucose,Whole Blood 62 mg/dL (75-99)
[2019-03-27] MEDS: PANTOPRAZOLE 40 MG TABLET PO SCH (05:52)
[2019-03-27 05:54] LABS: Glucose,Whole Blood 70 mg/dL (75-99)
[2019-03-27 06:01] VITALS: BP 132/75; PULSE 89; TEMP 97.5
[2019-03-27 06:14] LABS: African American GFR (CKD) >90 (>60 ml/min/1.73 sqM); Anion Gap 9 mmol/L; Anisocytosis Slight; Basophils # (A) 0.1 k/uL (0-0.2); Basophils % (A) 1 %; Blood Urea Nitrogen 25 mg/dL (9-20); Calcium 8.7 mg/dL (8.4-10.2); Carbon Dioxide 25 mmol/L (22-30); Chloride 101 mmol/L (98-107); Eosinophils # (A) 0.3 k/uL (0-0.7); Eosinophils % (A) 5 %; Glucose 63 mg/dL (74-99); HCT 38.1 % (39.0-53.0); Hypochromasia Marked; Lymphocytes # (A) 1.3 k/uL (1.0-4.8); Lymphocytes % (A) 26 %; MCH 28.3 pg (25.0-35.0); MCHC 31.6 g/dL (31.0-37.0); MCV 89.7 fL (80.0-100.0); Mean Platelet Volume 6.1; Monocytes # (A) 0.4 k/uL (0-1.0); Monocytes % (A) 8 %; Neutrophils # (A) 2.8 k/uL (1.3-7.7); Neutrophils % (A) 56 %; Platelet Count 264 k/uL (150-450); Poikilocytosis Slight; Potassium 4.2 mmol/L (3.5-5.1); RBC 4.25 m/uL (4.30-5.90); RDW 19.5 % (11.5-15.5); Sodium 135 mmol/L (137-145)
[2019-03-27] MEDS: APIXABAN 5 MG TAB PO SCH (08:25)
[2019-03-27] MEDS: ASPIRIN 81 MG PO SCH (08:25)
[2019-03-27] MEDS: METOPROLOL TARTRATE 25 MG TAB PO SCH (08:26)
[2019-03-27] MEDS: PRIMIDONE 50 MG TAB PO SCH (08:26)
[2019-03-27] MEDS: CLOPIDOGREL 75 MG TAB PO SCH (08:26)
[2019-03-27] MEDS: SODIUM BICARBONATE TAB 650 MG TAB PO SCH (08:26)
[2019-03-27] MEDS: TAMSULOSIN 0.4 MG CAP.ER.24H PO SCH (08:26)
[2019-03-27] MEDS: ATORVASTATIN 20 MG TAB PO SCH (08:26)
[2019-03-27] MEDS: GABAPENTIN 100 MG CAP PO SCH ×2 (08:28→15:44)
[2019-03-27] MEDS: DULoxetine HCL 60 MG CAPSULE.DR PO SCH (08:28)
[2019-03-27] MEDS: FUROSEMIDE 10 MG/ML 4 ML VIAL IV SCH (08:28)
[2019-03-27] MEDS: ARIPiprazole 5 MG TAB PO SCH (08:32)
[2019-03-27] MEDS ORDERED: ISOSORBIDE MONONITRATE ER 60 MG TAB.ER.24H PO SCH (09:00)
[2019-03-27 12:08] LABS: Glucose,Whole Blood 73 mg/dL (75-99)
--- NOTE | 2019-03-27 13:15 | P.PN ---
Subjective Progress Note Date: 03/27/19 Principal diagnosis: Chest pain. This is a 43-year-old male with history of diabetes, PE,hypertension, hyper- lipidemia, CVA, CAD status post multivessel PCI, cardiac arrest, ischemic cardiomyopathy with EF of less than 20% and S/P BiV AICD. Patient presents in the emergency department with complaints of chronic chest pain. Patient states he was eating breakfast with his in [place] and began to get chest pain that was centrally located, described as sharp/IV that travel down his left arm and into his back. Patient also states chest pain causes significant shortness of breath. Patient states he has chronic chest pain that he tries to relieve with tramadol at home without relief. Patient used to follow with the [facility] but got in an argument with their office over, "punching someone" and now the patient is no longer able to follow with that group. Pt states it was a mis-understanding. Patient was also seen in the ER department on 03/24/19 for near syncopal episode and was released home. Patient well-known to the hospital and to the cardiology service. Patient currently lying in bed with continued complaints of mid-sternal chest pain that travels down his left arm. Patient states pain is only relieved with Dilaudid. Patient used to be on isosorbide mononitrate but states that [facility] took him off for unknown reasons. Patient states nitroglycerin does not work on him anyway. Pt states he is compliant with all other medications including Eliquis and Plavix. Patient states he is being signed on for Palliative care on Thursday at his home. Patient states A1C 8 and glucose levels range 140-150 at home. No smoking. No EtOH. No recreational drug use. 03/27/2019 Patient observed this day lying in bed with no acute distress. Patient states he has no current complaints of chest pain, chest pressure, shortness of breath or palpitations. Patient states chest pain is much improved with starting Imdur 60 mg dialy but continues to get Dilaudid as well. Patient again states he is to have palliative care visit his home on Thursday. Vital signs stable. 96% on room air. Afebrile. patient continues paced on monitors current heart rate 86. No new labs. PHYSICAL EXAM GENERAL: Obese. No acute distress. HEENT: Head is atraumatic, normocephalic. Pupils are equal, round. Extra ocular movements intact. Mucous membranes moist. Neck supple. No JVD. No carotid bruit. No thyromegaly. LUNGS: Clear to auscultation no wheezes, rales or rhonchi. No chest wall tenderness on palpation or with deep breathing. HEART: Regular rate and rhythm, no rubs or gallops. S1 and S2 heard. II/ systolic murmur. ABDOMEN: Abdominal exam, WNL. Obese. Bowel sounds x4 quads. Soft, non-tender, without masses, organomegaly, or abdominal aorta enlargement. EXTREMITIES/VASCULAR: Extremities have easily palpable radial, femoral, dorsalis pedis and posterior tibial pulses. No cyanosis, calf tenderness. 1-2+ BLE edema. NEUROLOGIC: Patient is awake, alert and oriented x3. No focal neurologic abnormalities. FINAL IMPRESSION: 1. Chest Pain/USA, improved. 2. Ischemic cardiomyopathy with EF of less than 20%. 3. CAD status post multivessel PCI. 4. Hypertension. 5. Hyperlipidemia. 6. S/P BiV AICD PLAN: Patient CLEAR FOR DISCHARGE from a cardiology standpoint. Continue with daily IMDUR at 60 mg daily for home. Continue same all other medical/medication regime. Objective - Vital Signs Vital signs: Vital Signs Temp 97.5 F L 03/27/19 06:01 Pulse 89 03/27/19 06:01 Resp 18 03/27/19 06:01 BP 132/75 03/27/19 06:01 Pulse Ox 96 03/27/19 06:01 Intake & Output 03/26/19 03/27/19 03/27/19 19:59 06:59 18:59 Intake Total Output Total Balance Weight Intake: Oral Output: Urine Other: # Voids - Labs CBC & Chem 7: 03/27/19 05:27 03/27/19 05:27 Labs: Abnormal Lab Results - Last 24 Hours (Table) 03/26/19 03/26/19 03/27/19 Range/Units 16:57 21:10 05:27 RBC 4.25 L (4.30-5.90) m/uL Hgb 12.0 L (13.0-17.5) gm/dL Hct 38.1 L (39.0-53.0) % RDW 19.5 H (11.5-15.5) % Sodium (137-145) mmol/L BUN (9-20) mg/dL Glucose (74-99) mg/dL POC Glucose (mg/dL) 108 H 147 H (75-99) mg/dL 03/27/19 03/27/19 03/27/19 Range/Units 05:27 05:33 05:52 RBC (4.30-5.90) m/uL Hgb (13.0-17.5) gm/dL Hct (39.0-53.0) % RDW (11.5-15.5) % Sodium 135 L (137-145) mmol/L BUN 25 H (9-20) mg/dL Glucose 63 L (74-99) mg/dL POC Glucose (mg/dL) 62 L 70 L (75-99) mg/dL 03/27/19 Range/Units 12:00 RBC (4.30-5.90) m/uL Hgb (13.0-17.5) gm/dL Hct (39.0-53.0) % RDW (11.5-15.5) % Sodium (137-145) mmol/L BUN (9-20) mg/dL Glucose (74-99) mg/dL POC Glucose (mg/dL) 73 L (75-99) mg/dL
--- NOTE | 2019-03-27 16:22 | P.DS ---
Providers Date of admission: 03/25/19 12:56 Expected date of discharge: 03/27/19 Attending physician: Kassandra Lee MD Consults: 03/25/19 12:56 Consult Physician Urgent Consulting Provider: [facility] Consult Reason/Comments: Pulmonary edema, unstable angina Do you want consulting provider notified?: Yes Primary care physician: [facility] Course: 43-year-old male with history of diabetes, PE,hypertension, hyper-lipidemia, CVA, CAD status post multivessel PCI, cardiac arrest, ischemic cardiomyopathy with EF of less than 20% and S/P BiV AICD. Patient presents in the emergency department with complaints of chronic chest pain. Patient states he was eating breakfast with his in [place] and began to get chest pain that was centrally located, described as sharp/IV that travel down his left arm and into his back. Patient also states chest pain causes significant shortness of breath. Patient states he has chronic chest pain that he tries to relieve with tramadol at home without relief. Patient used to follow with the [facility] but got in an argument with their office over, "punching someone" and now the patient is no longer able to follow with that group. Pt states it was a mis-understanding. Patient was also seen in the ER department on 03/24/19 for near syncopal episode and was released home. Patient well-known to the hospital and to the cardiology service. Patient currently lying in bed with continued complaints of mid-sternal chest pain that travels down his left arm. Patient states pain is only relieved with Dilaudid. Patient used to be on isosorbide mononitrate but states that [facility] took him off for unknown reasons. Patient states nitroglycerin does not work on him anyway. Pt states he is compliant with all other medications including Eliquis and Plavix. Patient states he is being signed on for Palliative care on Thursday at his home. Patient states A1C 8 and glucose levels range 140-150 at home. No smoking. No EtOH. No recreational drug use. 03/27/2019 Patient observed this day lying in bed with no acute distress. Patient states he has no current complaints of chest pain, chest pressure, shortness of breath or palpitations. Patient states chest pain is much improved with starting Imdur 60 mg dialy but continues to get Dilaudid as well. Patient again states he is to have palliative care visit his home on Thursday. Vital signs stable. 96% on room air. Afebrile. patient continues paced on monitors current heart rate 86. No new labs. Patient was started on Imdur and was discharged home in a stable condition to follow-up with primary cnc technician Plan - Discharge Summary Discharge Rx Participant: No New Discharge Prescriptions: New Isosorbide Mononitrate ER [Imdur] 60 mg PO DAILY #30 tab.er.24h Nitroglycerin Sl Tabs [Nitrostat] 0.4 mg SUBLINGUAL Q5M PRN tab PRN Reason: Chest Pain Continue Pantoprazole [Protonix] 40 mg PO DAILY Nitroglycerin Sl Tabs [Nitrostat] 0.4 mg SUBLINGUAL Q5M PRN PRN Reason: Chest Pain Tamsulosin HCl [Flomax] 0.4 mg PO DAILY Clopidogrel [Plavix] 75 mg PO DAILY Apixaban [Eliquis] 5 mg PO BID Insulin Glargine [Lantus] 30 units SQ HS Gabapentin [Neurontin] 100 mg PO TID DULoxetine HCL [Cymbalta] 60 mg PO BID Albuterol Sulfate [Ventolin HFA] 2 puff INHALATION RT-Q6H PRN PRN Reason: Wheezing Bumetanide [BUMEX] 2 mg PO BID Rosuvastatin [Crestor] 10 mg PO DAILY Primidone [Mysoline] 100 mg PO BID ARIPiprazole [Abilify] 2.5 mg PO DAILY 30 Days #30 tab Metoprolol Tartrate [Lopressor] 25 mg PO BID 30 Days #60 tab Sodium Bicarbonate Tab 650 mg PO DAILY 30 Days #30 tab traMADol HCl [Ultram] 50 mg PO QID PRN #12 tab PRN Reason: Pain Aspirin 81 mg PO DAILY 30 Days #30 chew INSULIN ASPART (NovoLOG) [NovoLOG (formulary)] See Protocol SQ AC-TID Discharge Medication List Pantoprazole [Protonix] 40 mg PO DAILY 04/01/18 [History] Nitroglycerin Sl Tabs [Nitrostat] 0.4 mg SUBLINGUAL Q5M PRN 11/08/18 [History] Tamsulosin HCl [Flomax] 0.4 mg PO DAILY 11/08/18 [History] Apixaban [Eliquis] 5 mg PO BID 02/27/19 [History] Clopidogrel [Plavix] 75 mg PO DAILY 02/27/19 [History] Albuterol Sulfate [Ventolin HFA] 2 puff INHALATION RT-Q6H PRN 03/08/19 [History] Bumetanide [BUMEX] 2 mg PO BID 03/08/19 [History] DULoxetine HCL [Cymbalta] 60 mg PO BID 03/08/19 [History] Gabapentin [Neurontin] 100 mg PO TID 03/08/19 [History] Insulin Glargine [Lantus] 30 units SQ HS 03/08/19 [History] Primidone [Mysoline] 100 mg PO BID 03/08/19 [History] Rosuvastatin [Crestor] 10 mg PO DAILY 03/08/19 [History] ARIPiprazole [Abilify] 2.5 mg PO DAILY 30 Days #30 tab 03/16/19 [Rx] Metoprolol Tartrate [Lopressor] 25 mg PO BID 30 Days #60 tab 03/16/19 [Rx] Sodium Bicarbonate Tab 650 mg PO DAILY 30 Days #30 tab 03/16/19 [Rx] traMADol HCl [Ultram] 50 mg PO QID PRN #12 tab 03/16/19 [Rx] Aspirin 81 mg PO DAILY 30 Days #30 chew 03/23/19 [Rx] INSULIN ASPART (NovoLOG) [NovoLOG (formulary)] See Protocol SQ AC-TID 03/25/19 [History] Isosorbide Mononitrate ER [Imdur] 60 mg PO DAILY #30 tab.er.24h 03/27/19 [Rx] Nitroglycerin Sl Tabs [Nitrostat] 0.4 mg SUBLINGUAL Q5M PRN tab 03/27/19 [Rx] Follow up Appointment(s)/Referral(s): [facility], [NON-STAFF] - Junie New MD [Primary Care Provider] - 1-2 days Patient Instructions/Handouts: Angina (DC) Discharge Disposition: HOME WITH HOME HEALTH SERVICES
--- NOTE | 2019-04-04 17:00 | CDI ---
Documentation Clarification Form Date: 04/04/19 From: Orly Pantoja Phone: If you have a question about this query, please contact Sabrina Hurst, [employer] Operator at [phone] between 8am and 5pm. Admit Date: 03/25/19 Discharge Date: 03/27/19 Patient Name: Ti Dunham Visit Number: [id number] ATTENTION: The Clinical Documentation Specialists (CDI) and [facility] Coding Staff appreciate your assistance in clarifying documentation. Please respond to the clarification below the line at the bottom and electronically sign. The CDI & [facility] Coding staff will review the response and follow-up if needed. Please note: Queries are made part of the Legal Health Record. If you have any questions, please contact the author of this message via ITS. Dear Dr. Judi Jordan Heart failure is documented in the past medical history of the H&P, ED note and your consult note. History/Risk Factors: CAD, hypertension, history of [place] and ischemic cardiomyopathy Clinical Indicators: Chest pain, shortness of breath, patient is likely fluid overloaded is documented in the H&P and Dr. Lee's 03/26 progress note VS/Pulse OX: T. 97.8, P. 114, R. 20, BP 136/91 BNP: 6640 Echocardiogram Results: Most recent limited echo on 12/11: EF less than 20%, severe global hypokinesis of LV. Chest X Ray: Bilateral consolidation with small right pleural effusion. Correlate for pneumonia versus CHF. Treatment: IV Lasix In your professional opinion, can you please clarify the acuity and type of CHF if known? Systolic Heart Failure: Diastolic Heart Failure: Systolic & Diastolic Heart Failure Unable to Determine Other, please specify Acute Chronic Acute on chronic Unable to Determine Other, please specify Systo lic Heart FailureAcute on chronic MTDD
== END 2019-03-27 15:56 | disposition home health service (06) | DRG 302 ==
LOC: EC 10:44 → 3SCARD 12:56
PROVIDERS: ADMIT Internal Medicine; ATTEND Internal Medicine
PROC: 05HF33Z Insertion of Infusion Device into Left Cephalic Vein, Percutaneous Approach (ICD-10-PCS; principal; 2019-03-25 12:20)
DX: I25.110 Atherosclerotic heart disease of native coronary artery with unstable angina pectoris (principal); I50.23 Acute on chronic systolic (congestive) heart failure; E11.40 Type 2 diabetes mellitus with diabetic neuropathy, unspecified; I11.0 Hypertensive heart disease with heart failure; I27.20 Pulmonary hypertension, unspecified; I50.9 Heart failure, unspecified; E11.43 Type 2 diabetes mellitus with diabetic autonomic (poly)neuropathy; K31.84 Gastroparesis; E11.65 Type 2 diabetes mellitus with hyperglycemia; I07.1 Rheumatic tricuspid insufficiency; E78.00 Pure hypercholesterolemia, unspecified; E78.5 Hyperlipidemia, unspecified; F43.10 Post-traumatic stress disorder, unspecified; G47.33 Obstructive sleep apnea (adult) (pediatric); G89.29 Other chronic pain; I25.2 Old myocardial infarction; I25.5 Ischemic cardiomyopathy; I48.91 Unspecified atrial fibrillation; J45.909 Unspecified asthma, uncomplicated; K21.9 Gastro-esophageal reflux disease without esophagitis; F32.9 Major depressive disorder, single episode, unspecified; F41.9 Anxiety disorder, unspecified; M19.90 Unspecified osteoarthritis, unspecified site; Z79.01 Long term (current) use of anticoagulants; Z79.02 Long term (current) use of antithrombotics/antiplatelets; Z79.4 Long term (current) use of insulin; Z79.82 Long term (current) use of aspirin; Z79.899 Other long term (current) drug therapy; L40.9 Psoriasis, unspecified; R55 Syncope and collapse; G43.909 Migraine, unspecified, not intractable, without status migrainosus; K29.50 Unspecified chronic gastritis without bleeding; M54.9 Dorsalgia, unspecified; Z95.5 Presence of coronary angioplasty implant and graft; Z86.74 Personal history of sudden cardiac arrest; Z86.73 Personal history of transient ischemic attack (TIA), and cerebral infarction without residual deficits; Z95.810 Presence of automatic (implantable) cardiac defibrillator; Z90.49 Acquired absence of other specified parts of digestive tract; Z90.79 Acquired absence of other genital organ(s); Z87.11 Personal history of peptic ulcer disease; Z86.14 Personal history of Methicillin resistant Staphylococcus aureus infection; Z86.718 Personal history of other venous thrombosis and embolism; Z86.711 Personal history of pulmonary embolism; Z87.440 Personal history of urinary (tract) infections; Z87.01 Personal history of pneumonia (recurrent); Z91.5 Personal history of self-harm; Z88.6 Allergy status to analgesic agent; Z88.1 Allergy status to other antibiotic agents; Z88.5 Allergy status to narcotic agent; Z91.013 Allergy to seafood; Z88.8 Allergy status to other drugs, medicaments and biological substances; Z91.048 Other nonmedicinal substance allergy status; Z82.0 Family history of epilepsy and other diseases of the nervous system; Z82.49 Family history of ischemic heart disease and other diseases of the circulatory system; Z83.3 Family history of diabetes mellitus; Z80.9 Family history of malignant neoplasm, unspecified
CPT/HCPCS: 36410; 36415; 71046; 76937; 80048; 80053; 80061; 83735; 83880; 84484; 85025; 85610; 85730; 93005; 96374; 99285

== ENCOUNTER 2019-03-29 11:19 | Inpatient (IN) | payer MEDICARE, OTHER ==
[2019-03-29] MEDS ORDERED: NITROGLYCERIN OINT 1 INCH/GM PACKET TOPICAL STA (11:52)
[2019-03-29] MEDS ORDERED: ASPIRIN 81 MG PO STA (11:52)
--- NOTE | 2019-03-29 11:59 | ED ---
General Adult HPI - General Chief complaint: Chest Pain Stated complaint: chest pain Time Seen by Provider: 03/29/19 11:30 Source: patient, RN notes reviewed, old records reviewed Mode of arrival: wheelchair Limitations: no limitations - History of Present Illness Initial comments: This is a 43-year-old male who presents to the emergency department complaining of shortness of breath and chest pain. Patient states she was discharged with chest pain and shortness of breath. Patient states he has a past history of heart attacks and strokes and he comes in today because he continues to be short of breath and have severe chest pain. Patient denies any radiation of the pain. Patient denies any diaphoresis. Patient denies any nausea. Patient denies any recent fever chills or cough. Patient denies any increased swelling leg so he has swelling bilaterally. - Related Data Home Medications Medication Instructions Recorded Confirmed Pantoprazole [Protonix] 40 mg PO DAILY 04/01/18 03/29/19 Nitroglycerin Sl Tabs [Nitrostat] 0.4 mg SUBLINGUAL Q5M PRN 11/08/18 03/29/19 Tamsulosin HCl [Flomax] 0.4 mg PO DAILY 11/08/18 03/29/19 Apixaban [Eliquis] 5 mg PO BID 02/27/19 03/29/19 Clopidogrel [Plavix] 75 mg PO DAILY 02/27/19 03/29/19 Albuterol Sulfate [Ventolin HFA] 2 puff INHALATION RT-Q6H PRN 03/08/19 03/29/19 Bumetanide [BUMEX] 2 mg PO BID 03/08/19 03/29/19 DULoxetine HCL [Cymbalta] 60 mg PO BID 03/08/19 03/29/19 Gabapentin [Neurontin] 100 mg PO TID 03/08/19 03/29/19 Insulin Glargine [Lantus] 30 units SQ HS 03/08/19 03/29/19 Primidone [Mysoline] 100 mg PO BID 03/08/19 03/29/19 Rosuvastatin [Crestor] 10 mg PO DAILY 03/08/19 03/29/19 INSULIN ASPART (NovoLOG) [NovoLOG See Protocol SQ AC-TID 03/25/19 03/29/19 (formulary)] Previous Rx's Medication Instructions Recorded ARIPiprazole [Abilify] 2.5 mg PO DAILY 30 Days #30 tab 03/16/19 Metoprolol Tartrate [Lopressor] 25 mg PO BID 30 Days #60 tab 03/16/19 Sodium Bicarbonate Tab 650 mg PO DAILY 30 Days #30 tab 03/16/19 traMADol HCl [Ultram] 50 mg PO QID PRN #12 tab 03/16/19 Aspirin 81 mg PO DAILY 30 Days #30 chew 03/23/19 Isosorbide Mononitrate ER [Imdur] 60 mg PO DAILY #30 tab.er.24h 03/27/19 Allergies Allergy/AdvReac Type Severity Reaction Status Date / Time erythromycin base Allergy Severe Rash/Hives Verified 03/29/19 14:16 [Erythromycin Base] cephalexin monohydrate Allergy Unknown Rash/Hives Verified 03/29/19 14:16 [From Keflex] codeine Allergy Unknown Unknown Verified 03/29/19 14:16 meclizine Allergy Unknown Unknown Verified 03/29/19 14:16 Penicillins Allergy Unknown Rash/Hives Verified 03/29/19 14:16 shellfish derived Allergy Unknown Anaphylaxis Verified 03/29/19 14:16 adhesive tape Allergy Rash/Hives Verified 03/29/19 14:16 Fish Containing Products Allergy Anaphylaxis Verified 03/29/19 14:16 [Fish] Iodinated Contrast Media Allergy Anaphylaxis Verified 03/29/19 14:16 silver Allergy Rash/Hives Verified 03/29/19 14:16 [From Tegaderm AG Mesh] naproxen AdvReac Unknown Compromises Verified 03/29/19 14:16 Kidney Function atorvastatin calcium AdvReac Myalgia Verified 03/29/19 14:16 [From Lipitor] hydrocodone [From [place]] AdvReac Rapid Verified 03/29/19 14:16 Heart Rate Review of Systems ROS Statement: Those systems with pertinent positive or pertinent negative responses have been documented in the HPI. ROS Other: All systems not noted in ROS Statement are negative. Past Medical History Past Medical History: Asthma, Coronary Artery Disease (CAD), Chest Pain / Angina, Heart Failure, CVA/TIA, Diabetes Mellitus, Deep Vein Thrombosis (DVT), GERD/Reflux, Hyperlipidemia, Hypertension, Myocardial Infarction (IL), Osteoarthritis (OA), Pneumonia, Skin Disorder, Sleep Apnea/CPAP/BIPAP Additional Past Medical History / Comment(s): Pt recently admitted to [facility] on 03/[facility]/19 with chest pain possible unstable angina possible NSTEMI, hyponatremia, hypercalcemia. Other hx: multiple vessel CAD, ischemic cardiomyopathy, IDDM type II, diabetic neuropathy bilateral hands and feet, hypertensive cardiovascular disease, past cardiac arrest, SHELIA with no device, bronchitis, PE L lung, DVT L leg, chronic gastritis, degenerative disc disease, chronic back pain, depression with hx of suicide attempts with insulin, gastroparesis, psoriasis, UTI, migraines, TIA, PUD, hiatal hernia, L rotator cuff tear, bronchitis, poor circulation, pseudoaneurysm L groin post procedure, CVA 05/15/18 with TPA administration and TIAs x2 Last Myocardial Infarction Date:: October 2017 History of Any Multi-Drug Resistant Organisms: MRSA Date of last positivie culture/infection: 11/05/17 (Culture done at [facility]) MDRO Source:: legs Past Surgical History: AICD, Appendectomy, Cholecystectomy, Heart Catheterization With Stent, Hernia Repair Additional Past Surgical History / Comment(s): Pt has had multiple cardiac procedures- caths/stents/PTCA, last stent placed at [facility] -October2017, S[place]AN[place]H, R inguinal hernia repair, umbilical hernia repair, right orchiectomy due to nec rosis, right hand surgery r/t injury, colonoscopy, cystoscopy (scraped bladder parrish), stents 10/2017, cautarize right lung, Past Anesthesia/Blood Transfusion Reactions: No Reported Reaction Additional Past Anesthesia/Blood Transfusion Reaction / Comment(s): . Date of Last Stent Placement:: 10/2018 Type of Cardiac Device: Biventricular Pacemaker, AICD Device Placement Date:: 09/19/15 Past Psychological History: Anxiety, Depression, PTSD Smoking Status: Never smoker Past Alcohol Use History: None Reported Past Drug Use History: None Reported - Past Family History Mother Family Medical History: Coronary Artery Disease (CAD), Myocardial Infarction (IL) Additional Family Medical History / Comment(s): 7 IL and faulty heart valve. Pt does not know the age when mother had her IL's. Father History Unknown: Yes Additional Family Medical History / Comment(s): Does not know who father is. Brother(s) Family Medical History: Cancer, Congestive Heart Failure (CHF), Myocardial Infarction (IL) Additional Family Medical History / Comment(s): Parkinsons. Pt does not know at what age his brother had an IL. Patient's other brother has lung CA Patient has Family Medical History: No Reported History Additional Family Medical History / Comment(s): There is a strong family history for heart disease, hypertension, and diabetes. General Exam - General Exam Comments Initial Comments: GENERAL: Patient is well-developed and well-nourished. Patient is nontoxic and well- hydrated and is in mild distress. ENT: Neck is soft and supple. No significant lymphadenopathy is noted. Oropharynx is clear. Moist mucous membranes. Neck has full range of motion without eliciting any pain. EYES: The sclera were anicteric and conjunctiva were pink and moist. Extraocular movements were intact and pupils were equal round and reactive to light. Eyelids were unremarkable. PULMONARY: Unlabored respirations. Good breath sounds bilaterally. Patient has slight soft crab shedder ckles occasional basis CARDIOVASCULAR: There is a regular rate and rhythm without any murmurs gallops or rubs. ABDOMEN: Soft and nontender with normal bowel sounds. No palpable organomegaly was n oted. There is no palpable pulsatile mass. SKIN: Skin is clear with no lesions or rashes and otherwise unremarkable. NEUROLOGIC: Patient is alert and oriented x3. Cranial nerves II through XII are grossly intact. Motor and sensory are also intact. Normal speech, volume and content. Symmetrical smile. MUSCULOSKELETAL: Normal extremities with adequate strength and full range of motion. 2+ bilaterally LYMPHATICS: No significant lymphadenopathy is noted PSYCHIATRIC: Normal psychiatric evaluation. Limitations: no limitations Course Vital Signs 03/29/19 03/29/19 03/29/19 11:28 11:42 13:15 Temperature 98.0 F Pulse Rate 121 H 125 H 120 H Respiratory 22 20 20 Rate Blood Pressure 132/90 137/99 143/98 O2 Sat by Pulse 100 98 Oximetry 03/29/19 03/29/19 16:46 16:58 Temperature Pulse Rate 110 H 122 H Respiratory 18 16 Rate Blood Pressure 154/119 151/96 O2 Sat by Pulse 97 99 Oximetry Medical Decision Making - Medical Decision Making EKG shows paced rhythm at 120 beats a minute VT interval is 162 QRS is 92 QT interval 312 QTC is 440. Patient's EKG shows no ST segment elevation. Chest x-ray shows pleural effusions. CT of the chest shows no pulmonary embolism however there is pleural effusions as well as infiltrates in the bases. There is also abdominal ascites which is not seen prior. Patient is persistent from the moment I see him until he is admitted asking for Dilaudid. I spoke with the nurse practitioner for Dr. Butcher she agreed to admit the patient admitted the patient wrote admitting orders. - Lab Data Result diagrams: 03/29/19 14:17 03/29/19 14:17 Lab Results 03/29/19 03/29/19 03/29/19 Range/Units 14:17 14:17 14:17 WBC 5.3 (3.8-10.6) k/uL RBC 4.68 (4.30-5.90) m/uL Hgb 12.8 L (13.0-17.5) gm/dL Hct 42.7 (39.0-53.0) % MCV 91.3 (80.0-100.0) fL MCH 27.3 (25.0-35.0) pg MCHC 29.9 L (31.0-37.0) g/dL RDW 19.6 H (11.5-15.5) % Plt Count 211 (150-450) k/uL Neutrophils % 80 % Lymphocytes % 13 % Monocytes % 4 % Eosinophils % 1 % Basophils % 1 % Neutrophils # 4.3 (1.3-7.7) k/uL Lymphocytes # 0.7 L (1.0-4.8) k/uL Monocytes # 0.2 (0-1.0) k/uL Eosinophils # 0.0 (0-0.7) k/uL Basophils # 0.0 (0-0.2) k/uL Hypochromasia Marked Poikilocytosis Slight Anisocytosis Slight PT 11.8 (9.0-12.0) sec INR 1.1 (<1.2) APTT 23.1 (22.0-30.0) sec D-Dimer 1.41 H (<0.60) mg/L FEU Sodium 135 L (137-145) mmol/L Potassium 4.1 (3.5-5.1) mmol/L Chloride 104 (98-107) mmol/L Carbon Dioxide 19 L (22-30) mmol/L Anion Gap 12 mmol/L BUN 17 (9-20) mg/dL Creatinine 0.75 (0.66-1.25) mg/dL Est GFR (CKD-EPI)AfAm >90 (>60 ml/min/1.73 sqM) Est GFR (CKD-EPI)NonAf >90 (>60 ml/min/1.73 sqM) Glucose 153 H (74-99) mg/dL Plasma Lactic Acid Timbo (0.7-2.0) mmol/L Calcium 9.0 (8.4-10.2) mg/dL Magnesium 1.9 (1.6-2.3) mg/dL Total Bilirubin 1.1 (0.2-1.3) mg/dL AST 29 (17-59) U/L ALT 12 L (21-72) U/L Alkaline Phosphatase 176 H (38-126) U/L Troponin I (0.000-0.034) ng/mL NT-Pro-B Natriuret Pep pg/mL Total Protein 5.9 L (6.3-8.2) g/dL Albumin 3.4 L (3.5-5.0) g/dL 03/29/19 03/29/19 03/29/19 Range/Units 14:17 14:17 14:55 WBC (3.8-10.6) k/uL RBC (4.30-5.90) m/uL Hgb (13.0-17.5) gm/dL Hct (39.0-53.0) % MCV (80.0-100.0) fL MCH (25.0-35.0) pg MCHC (31.0-37.0) g/dL RDW (11.5-15.5) % Plt Count (150-450) k/uL Neutrophils % % Lymphocytes % % Monocytes % % Eosinophils % % Basophils % % Neutrophils # (1.3-7.7) k/uL Lymphocytes # (1.0-4.8) k/uL Monocytes # (0-1.0) k/uL Eosinophils # (0-0.7) k/uL Basophils # (0-0.2) k/uL Hypochromasia Poikilocytosis Anisocytosis PT (9.0-12.0) sec INR (<1.2) APTT (22.0-30.0) sec D-Dimer (<0.60) mg/L FEU Sodium (137-145) mmol/L Potassium (3.5-5.1) mmol/L Chloride (98-107) mmol/L Carbon Dioxide (22-30) mmol/L Anion Gap mmol/L BUN (9-20) mg/dL Creatinine (0.66-1.25) mg/dL Est GFR (CKD-EPI)AfAm (>60 ml/min/1.73 sqM) Est GFR (CKD-EPI)NonAf (>60 ml/min/1.73 sqM) Glucose (74-99) mg/dL Plasma Lactic Acid Timbo 2.4 H* (0.7-2.0) mmol/L Calcium (8.4-10.2) mg/dL Magnesium (1.6-2.3) mg/dL Total Bilirubin (0.2-1.3) mg/dL AST (17-59) U/L ALT (21-72) U/L Alkaline Phosphatase (38-126) U/L Troponin I 0.025 (0.000-0.034) ng/mL NT-Pro-B Natriuret Pep 7840 pg/mL Total Protein (6.3-8.2) g/dL Albumin (3.5-5.0) g/dL Disposition Clinical Impression: Dyspnea, Pleural effusion, Ascites, Unstable angina Disposition: ADMITTED IP TO THIS HOSP Referrals: Junie New MD [Primary Care Provider] - 1-2 days Time of Disposition: 17:31
--- NOTE | 2019-03-29 13:53 | XR ---
EXAMINATION TYPE: XR chest 2V DATE OF EXAM: 03/29/2019 COMPARISON: Chest x-ray 4 days earlier. HISTORY: Chest pain and difficulty in breathing. TECHNIQUE: Frontal and lateral views of the chest are obtained. FINDINGS: There is cardiomegaly with multilead pacemaker/AICD. There is elevated right hemidiaphrag m with persistent right basilar opacity . Left lung is clear. The osseous structures are intact. IMPRESSION: Cardiomegaly with elevated right hemidiaphragm and mid to lower lung acute infiltrate an d/or atelectasis with suspected small right pleural effusion are all redemonstrated. No significant c hange from most recent prior.
[2019-03-29 14:38] LABS: Anisocytosis Slight; Basophils % (A) 1 %; Eosinophils % (A) 1 %; HCT 42.7 % (39.0-53.0); HGB 12.8 gm/dL (13.0-17.5); Hypochromasia Marked; Lymphocytes # (A) 0.7 k/uL (1.0-4.8); Lymphocytes % (A) 13 %; MCH 27.3 pg (25.0-35.0); MCHC 29.9 g/dL (31.0-37.0); MCV 91.3 fL (80.0-100.0); Monocytes # (A) 0.2 k/uL (0-1.0); Monocytes % (A) 4 %; Neutrophils # (A) 4.3 k/uL (1.3-7.7); Neutrophils % (A) 80 %; Platelet Count 211 k/uL (150-450); Poikilocytosis Slight; RBC 4.68 m/uL (4.30-5.90); RDW 19.6 % (11.5-15.5); WBC 5.3 k/uL (3.8-10.6)
[2019-03-29 14:43] LABS: ALT 12 U/L (21-72); AST 29 U/L (17-59); African American GFR (CKD) >90 (>60 ml/min/1.73 sqM); Albumin 3.4 g/dL (3.5-5.0); Alkaline Phosphatase 176 U/L (38-126); Anion Gap 12 mmol/L; Blood Urea Nitrogen 17 mg/dL (9-20); Carbon Dioxide 19 mmol/L (22-30); Chloride 104 mmol/L (98-107); Glucose 153 mg/dL (74-99); Magnesium 1.9 mg/dL (1.6-2.3); Potassium 4.1 mmol/L (3.5-5.1); Sodium 135 mmol/L (137-145); Total Bilirubin 1.1 mg/dL (0.2-1.3); Total Protein 5.9 g/dL (6.3-8.2)
[2019-03-29 14:46] LABS: INR 1.1 (<1.2); Partial Thromboplastin Time 23.1 sec (22.0-30.0); Prothrombin Time 11.8 sec (9.0-12.0)
[2019-03-29 14:54] LABS: D-Dimer 1.41 mg/L FEU (<0.60)
[2019-03-29] MEDS ORDERED: diphenhydrAMINE 50 MG/ML 1 ML VIAL IVP STA (16:23)
[2019-03-29] MEDS ORDERED: FAMOTIDINE 20 MG/2 ML VIAL IV STA (16:23)
[2019-03-29] MEDS ORDERED: methylPREDNISolone SOD SUCCI 125 MG/2 ML VIAL IV STA (16:23)
--- NOTE | 2019-03-29 17:27 | CT ---
EXAMINATION TYPE: CT chest angio for PE DATE OF EXAM: 03/29/2019 COMPARISON: 11/14/2018 HISTORY: SOB Chest pain CT DLP: 836.7 mGycm Automated exposure control for dose reduction was used. CONTRAST: CT Chest for pulmonary embolism performed with with IV Contrast, patient injected with 100 mL of Isov ue 370. FINDINGS: There are 3-D post processed images. There are bilateral pleural effusions and larger on the right side. Heart size is normal. There is no pericardial effusion. Thoracic aorta appears intact. There is no aneurysm. There is a 2.5 x 1.5 cm pretracheal lymph node. There is normal contrast opacification of the pulmonary arteries. I see no filling defect. There is s ome infiltrate and atelectasis in the right lower lobe. There is mild atelectasis left lung base. The bony thorax appears intact. There is some free fluid around the liver and spleen. IMPRESSION: No evidence of pulmonary embolism. Bilateral pleural effusions and larger on the right side. Basilar pulmonary infiltrates and atelectas is. Nonspecific mediastinal lymph node. Mild ascites. Pleural effusions unchanged. Abdominal ascites is new compared to old exam.
[2019-03-29] MEDS ORDERED: NITROGLYCERIN SL TABS 0.4 MG TAB SUBLINGUAL PRN ×2 (17:31→22:59)
[2019-03-29] MEDS ORDERED: NITROGLYCERIN OINT 1 INCH/GM PACKET TOPICAL SCH (18:00)
[2019-03-29 18:36] VITALS: BMI 40.0
[2019-03-29 20:44] LABS: Glucose,Whole Blood 188 mg/dL (75-99)
[2019-03-29] MEDS ORDERED: METOPROLOL TARTRATE 25 MG TAB PO SCH (21:00)
[2019-03-29] MEDS ORDERED: HYDROcodone/APAP 5-325MG 1 EACH TAB PO PRN (21:32)
[2019-03-29] MEDS: APIXABAN 5 MG TAB PO SCH (22:11)
[2019-03-29] MEDS: DULoxetine HCL 60 MG CAPSULE.DR PO SCH (22:11)
[2019-03-29] MEDS: INSULIN DETEMIR (LEVEMIR) 100 UNIT/ML SYR SQ SCH (22:11)
[2019-03-29] MEDS: GABAPENTIN 100 MG CAP PO SCH (22:11)
[2019-03-29] MEDS: PRIMIDONE 50 MG TAB PO SCH (22:11)
[2019-03-29] MEDS: BUMETANIDE 1 MG TAB PO SCH (22:25)
[2019-03-30 03:32] LABS: Cholesterol 155 mg/dL (<200); HDL Cholesterol 34 mg/dL (40-60); LDL Cholesterol,Calculated 101 mg/dL (0-99); Triglycerides 101 mg/dL (<150)
[2019-03-30 06:12] LABS: Glucose,Whole Blood 167 mg/dL (75-99)
[2019-03-30] MEDS: INSULIN ASPART (NovoLOG) 100 UNIT/ML VIAL SQ SCH ×5 (06:40→21:00)
--- NOTE | 2019-03-30 10:20 | CONS ---
JIMBO Luke is a 43-year-old gentleman with history of coronary artery disease, status post multivessel angioplasty, ischemic cardiomyopathy with severe LV systolic dysfunction, chronic systolic heart failure, status post AICD, who actually was discharged home from the hospital 2 days ago, comes back in complaining of shortness of breath and chest pain. He has mild leg edema, short of breath, has pleural effusions on the CAT scan and the chest x-rays that he had. This is suggestive of acute exacerbation of chronic systolic heart failure. He also complains of chest pain for which he asked for Dilaudid. It is mild intensity and unassociated with diaphoresis and unrelated to exertion. The patient also tells us on one of his recent admissions, he was transferred to either [facility] or [facility] where he is not quite sure whether he had any invasive testing or not. I am waiting on these records at this time. At the time of my evaluation this morning, he appears comfortable at rest. EKG reveals paced rhythm with nonspecific ST-T wave changes. Three sets of cardiac enzymes have been negative. Patient had a CT scan of the chest that is negative for pulmonary embolism. PAST MEDICAL HISTORY: Significant for coronary artery disease, status post multivessel angioplasty, persistent atrial fibrillation, ischemic cardiomyopathy, chronic systolic heart failure, diabetes, hypertension, dyslipidemia. CURRENT MEDICATIONS: Current medications include Ultram, Flomax, Crestor, Mysoline, Protonix, Lopressor 25 b.i.d. Imdur 60 q. Daily, insulin, Neurontin, Cymbalta, Plavix, Bumex, aspirin, Eliquis, Ventolin, and Abilify. ALLERGIES: The patient is allergic to ERYTHROMYCIN, KEFLEX, CODEINE, MECLIZINE, PENICILLIN, SHELLFISH, FISH, IODINATED CONTRAST, NAPROXEN, LIPITOR and NORCO. FAMILY HISTORY: Family history is negative for premature coronary artery disease. SOCIAL HISTORY: Social history is significant for smoking. There is no history of EtOH abuse or drug abuse. REVIEW OF SYSTEMS: HEENT is unremarkable. CARDIAC: As described above. RESPIRATORY: As described above. GI: Negative. GENITOURINARY: Negative. ALLERGY/IMMUNOLOGY: Negative. SKIN: Negative. MUSCULOSKELETAL: Significant for arthritis. PSYCHOSOCIAL: Negative. ENDOCRINE: Negative. HEMATOLOGICAL: Negative. DERM: Negative. CONSTITUTIONAL: Negative. ONCOLOGICAL: Negative. Rest of the system review is not relevant. PHYSICAL EXAMINATION: On exam, patient is comfortable at rest. Afebrile. Heart rate is 100 beats per minute. Blood pressure is 140/80. Respiratory rate is 18. There is no jugular venous distention. Carotid upstroke is normal. There is no bruit. Chest exam reveals good air entry bilaterally. Heart exam reveals first and second heart sounds. A systolic murmur at the left lower sternal border. Abdomen is soft. Examination of extremities reveals bilateral pitting edema. Peripheral pulses are palpable. LABS: Labs show a hemoglobin of 12.8. Tropes are negative. Creatinine is 0.7. Potassium is 4.1. BNP is elevated at 7840. ASSESSMENT: 1. Acute exacerbation of chronic systolic heart failure. 2. Precordial chest pain, myocardial infarction ruled out. 3. Coronary artery disease, status post multivessel angioplasty. 4. Ischemic cardiomyopathy, status post automated implantable cardioverter- defibrillator. PLAN: I am going to obtain records from [facility] and [facility]. Continue with his current medications. Continue the Bumex. Increase the dose of his metoprolol to 50 b.i.d. and see how his symptoms evolve. On discharge, will be arranging follow up with his own live in housekeeper nanny. MMAMBROSEL / IJN: [id number] /
[2019-03-30] MEDS: SODIUM BICARBONATE TAB 650 MG TAB PO SCH (11:18)
[2019-03-30] MEDS: PANTOPRAZOLE 40 MG TABLET PO SCH (11:18)
[2019-03-30] MEDS: ASPIRIN 325 MG TAB PO SCH (11:18)
[2019-03-30] MEDS: APIXABAN 5 MG TAB PO SCH ×2 (11:18→20:21)
[2019-03-30] MEDS: PRIMIDONE 50 MG TAB PO SCH ×2 (11:18→20:21)
[2019-03-30] MEDS: ISOSORBIDE MONONITRATE ER 60 MG TAB.ER.24H PO SCH (11:18)
[2019-03-30] MEDS: BUMETANIDE 1 MG TAB PO SCH ×2 (11:18→20:21)
[2019-03-30] MEDS: GABAPENTIN 100 MG CAP PO SCH ×3 (11:19→20:22)
[2019-03-30] MEDS: CLOPIDOGREL 75 MG TAB PO SCH (11:19)
[2019-03-30] MEDS: DULoxetine HCL 60 MG CAPSULE.DR PO SCH ×2 (11:19→20:21)
[2019-03-30] MEDS: TAMSULOSIN 0.4 MG CAP.ER.24H PO SCH (11:19)
[2019-03-30 11:58] LABS: Glucose,Whole Blood 164 mg/dL (75-99)
[2019-03-30] MEDS: traMADol 50 MG TAB PO PRN (12:03)
[2019-03-30] MEDS: METOPROLOL TARTRATE 50 MG TAB PO SCH ×2 (12:04→20:22)
[2019-03-30] MEDS: LISINOPRIL 10 MG TAB PO SCH (12:04)
[2019-03-30] MEDS: ASPIRIN 81 MG PO SCH (12:05)
[2019-03-30] MEDS: ARIPiprazole 5 MG TAB PO SCH (12:22)
[2019-03-30] MEDS ORDERED: LORazepam 2 MG/ML INJ IV STA ×2 (15:00→21:24)
[2019-03-30 16:54] LABS: Glucose,Whole Blood 145 mg/dL (75-99)
[2019-03-30 20:16] LABS: Glucose,Whole Blood 164 mg/dL (75-99)
[2019-03-30] MEDS: INSULIN DETEMIR (LEVEMIR) 100 UNIT/ML SYR SQ SCH (20:21)
[2019-03-30 22:53] LABS: Glucose,Whole Blood 94 mg/dL (75-99)
--- NOTE | 2019-03-30 23:11 | P.HPIM ---
History of Present Illness H&P Date: 03/30/19 Chief Complaint: Chest pain Patient is a 43-year-old male with a known history of coronary artery disease and multiple stent placement, history of cardiopulmonary arrest with pulmonary embolism, ischemic cardiomyopathy status post AICD placement, chronic CHF with systolic dysfunction ejection fraction 20%, moderate to severe tricuspid regurgitation, mild pulmonary hypertension, depression, chronic low blood pressure, diabetes type 2 and history of DVT who was discharged from hospital on 03/27/2019, was treated for acute CHF and depression. Patient was feeling well after discharge but developed left-sided sharp chest pain and woke up from sleep yesterday evening. He did have nausea and dry heaves and shortness of breath with diaphoresis. Patient came back to the hospital for evaluation. Patient also complains of increased leg swelling Denied any cough or sputum production. No headache or dizziness or lightheadedness. No fever no chills. Troponin level 0.025, 0.031 and 0.031 x-ray and BNP 7840 EKG showed paced rhythm Patient is currently saturating well on room air. Laboratory data showed WBC 5.3, hemoglobin 12.3 and platelets 270 3K Sodium 135, BUN 17 and creatinine 0.75 D-dimer 1.4, CT angiogram is negative for any pulmonary embolism. chest x-ray showed cardiomegaly with elevated diaphragm right with mid to lower acute infiltrate and/or atelectasis was suspected small right pleural effusion. He was treated. Review of Systems Constitutional: Patient denies any fever or chills . No generalized weakness or weight loss. Abdomen: Patient denied nausea vomiting and diarrhea and abdominal pain. Cardiovascular: Complaining of chest pain and shortness of breath. Leg swelling. No palpitations.. Respiratory: patient denied any cough is from production. No shortness of breath Neurologic: Patient denied any numbness or tingling headache. Musculoskeletal: Patient denies any complaints of joint swelling or deformity. Skin: Negative Psychiatric: Negative Endocrine: No heat or cold intolerance. No recent weight gain. Genitourinary: No dysuria or hematuria. All other 14 point ROS negative except the above Past Medical History Past Medical History: Asthma, Coronary Artery Disease (CAD), Chest Pain / Angina, Heart Failure, CVA/TIA, Diabetes Mellitus, Deep Vein Thrombosis (DVT), GERD/Reflux, Hyperlipidemia, Hypertension, Myocardial Infarction (MT), Osteoarthritis (OA), Pneumonia, Skin Disorder, Sleep Apnea/CPAP/BIPAP Additional Past Medical History / Comment(s): Pt recently admitted to [facility] on 03/21/19 with chest pain possible unstable angina possible NSTEMI, hyponatremia, hypercalcemia. Other hx: multiple vessel CAD, ischemic cardiomyopathy, IDDM type II, diabetic neuropathy bilateral hands and feet, hypertensive cardiovascular disease, past cardiac arrest, SHELIA with no device, bronchitis, PE L lung, DVT L leg, chronic gastritis, degenerative disc disease, chronic back pain, depression with hx of suicide attempts with insulin, gastroparesis, psoriasis, UTI, migraines, TIA, PUD, hiatal hernia, L rotator cuff tear, bronchitis, poor circulation, pseudoaneurysm L groin post procedure, CVA 05/15/18 with TPA administration and TIAs x2 Last Myocardial Infarction Date:: October 2017 History of Any Multi-Drug Resistant Organisms: MRSA Date of last positivie culture/infection: 11/05/17 (Culture done at [facility]) MDRO Source:: legs Past Surgical History: AICD, Appendectomy, Cholecystectomy, Heart Catheterization With Stent, Hernia Repair Additional Past Surgical History / Comment(s): Pt has had multiple cardiac procedures- caths/stents/PTCA, last stent placed at [facility] -October2017, S[place], R inguinal hernia repair, umbilical hernia repair, 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 Date of Last Stent Placement:: 10/2018 Type of Cardiac Device: Biventricular Pacemaker, AICD Device Placement Date:: 09/19/15 Past Psychological History: Anxiety, Depression, PTSD Additional Psychological History / Comment(s): Several suicide attempts with use of insulin. PTSD - in 2000 his 3mo old son in his arms (born 2 months premature). Pt resides with his mother in law. He has a walker at home if needed. He no longer drives, his spouse drives. Pt states he had suicidal thoughts earlier in February, but none at this time. Smoking Status: Never smoker Past Alcohol Use History: None Reported Additional Past Alcohol Use History / Comment(s): Past alcohol abuse - pt states he quit drinking over 9 yrs ago. Past Drug Use History: None Reported Additional Drug Use History / Comment(s): Pt has smoked marijuana in the past - last smoked in 1999. - Past Family History Mother Family Medical History: Coronary Artery Disease (CAD), Myocardial Infarction (MT) Additional Family Medical History / Comment(s): 7 MT and faulty heart valve. Pt does not know the age when mother had her MT's. Father History Unknown: Yes Additional Family Medical History / Comment(s): Does not know who father is. Brother(s) Family Medical History: Cancer, Congestive Heart Failure (CHF), Myocardial Infarction (MT) Additional Family Medical History / Comment(s): Parkinsons. Pt does not know at what age his brother had an MT. Patient's other brother has lung CA Patient has Family Medical History: No Reported History Additional Family Medical History / Comment(s): There is a strong family history for heart disease, hypertension, and diabetes. Medications and Allergies Home Medications Medication Instructions Recorded Confirmed Type Pantoprazole [Protonix] 40 mg PO DAILY 04/01/18 03/29/19 History Nitroglycerin Sl Tabs [Nitrostat] 0.4 mg SUBLINGUAL Q5M PRN 11/08/18 03/29/19 History Tamsulosin HCl [Flomax] 0.4 mg PO DAILY 11/08/18 03/29/19 History Apixaban [Eliquis] 5 mg PO BID 02/27/19 03/29/19 History Clopidogrel [Plavix] 75 mg PO DAILY 02/27/19 03/29/19 History Albuterol Sulfate [Ventolin HFA] 2 puff INHALATION RT-Q6H PRN 03/08/19 03/29/19 History Bumetanide [BUMEX] 2 mg PO BID 03/08/19 03/29/19 History DULoxetine HCL [Cymbalta] 60 mg PO BID 03/08/19 03/29/19 History Gabapentin [Neurontin] 100 mg PO TID 03/08/19 03/29/19 History Insulin Glargine [Lantus] 30 units SQ HS 03/08/19 03/29/19 History Primidone [Mysoline] 100 mg PO BID 03/08/19 03/29/19 History Rosuvastatin [Crestor] 10 mg PO DAILY 03/08/19 03/29/19 History ARIPiprazole [Abilify] 2.5 mg PO DAILY 30 Days #30 tab 03/16/19 03/29/19 Rx Metoprolol Tartrate [Lopressor] 25 mg PO BID 30 Days #60 tab 03/16/19 03/29/19 Rx Sodium Bicarbonate Tab 650 mg PO DAILY 30 Days #30 tab 03/16/19 03/29/19 Rx traMADol HCl [Ultram] 50 mg PO QID PRN #12 tab 03/16/19 03/29/19 Rx Aspirin 81 mg PO DAILY 30 Days #30 chew 03/23/19 03/29/19 Rx INSULIN ASPART (NovoLOG) [NovoLOG See Protocol SQ AC-TID 03/25/19 03/29/19 History (formulary)] Isosorbide Mononitrate ER [Imdur] 60 mg PO DAILY #30 tab.er.24h 03/27/19 03/29/19 Rx Allergies Allergy/AdvReac Type Severity Reaction Status Date / Time erythromycin base Allergy Severe Rash/Hives Verified 03/29/19 14:16 [Erythromycin Base] cephalexin monohydrate Allergy Unknown Rash/Hives Verified 03/29/19 14:16 [From Keflex] codeine Allergy Unknown Unknown Verified 03/29/19 14:16 meclizine Allergy Unknown Unknown Verified 03/29/19 14:16 Penicillins Allergy Unknown Rash/Hives Verified 03/29/19 14:16 shellfish derived Allergy Unknown Anaphylaxis Verified 03/29/19 14:16 adhesive tape Allergy Rash/Hives Verified 03/29/19 14:16 Fish Containing Products Allergy Anaphylaxis Verified 03/29/19 14:16 [Fish] Iodinated Contrast Media Allergy Anaphylaxis Verified 03/29/19 14:16 silver Allergy Rash/Hives Verified 03/29/19 14:16 [From Tegaderm AG Mesh] naproxen AdvReac Unknown Compromises Verified 03/29/19 14:16 Kidney Function atorvastatin calcium AdvReac Myalgia Verified 03/29/19 14:16 [From Lipitor] hydrocodone [From [place]] AdvReac Rapid Verified 03/29/19 14:16 Heart Rate Physical Exam Vitals: Vital Signs Temp Pulse Pulse Resp BP BP Pulse Ox 03/30/19 04:00 97.4 F L 101 H 21 141/88 100 03/29/19 23:42 102 H 19 03/29/19 23:40 97.6 F 102 H 19 135/97 98 03/29/19 19:28 119 H 18 123/78 98 03/29/19 16:58 122 H 16 151/96 99 03/29/19 16:46 110 H 18 154/119 97 Intake and Output 03/29/19 03/30/19 03/30/19 22:59 06:59 14:59 Intake Total 200 666 Balance 200 666 Intake: Oral 200 666 Other: # Voids 2 1 Weight 112.8 kg PHYSICAL EXAMINATION: Patient is lying in the bed comfortably, no acute distress, awake alert and oriented.. HEENT: Normocephalic. Neck is supple. Pupils reactive. Nostrils clear. Oral cavity is moist. Ears reveal no drainage. Neck reveals no JVD, carotid bruits, or thyromegaly. CHEST EXAMINATION: Trachea is central. Symmetrical expansion. Bibasilar diminished air entry Lung hendrix clear to auscultation and percussion. CARDIAC: Normal S1, S2 with no gallops. . Positive Systolic murmur ABDOMEN: Soft. Bowel sounds normal. No organomegaly. No abdominal bruits. Extremities: Trace edema. No clubbing or cyanosis Neurologically awake, alert, oriented x3 with well-coordinated movements. No focal deficits noted Skin: No rash or skin lesions. Psychiatric: Coperative. Nonsuicidal Musculoskeletal: No joint swelling or deformity. Normal range of motion. Results CBC & Chem 7: 03/29/19 14:17 03/29/19 14:17 Labs: Abnormal Lab Results - Last 24 Hours (Table) 03/29/19 03/29/19 03/29/19 Range/Units 14:17 14:17 14:17 Hgb 12.8 L (13.0-17.5) gm/dL MCHC 29.9 L (31.0-37.0) g/dL RDW 19.6 H (11.5-15.5) % Lymphocytes # 0.7 L (1.0-4.8) k/uL D-Dimer 1.41 H (<0.60) mg/L FEU Sodium 135 L (137-145) mmol/L Carbon Dioxide 19 L (22-30) mmol/L Glucose 153 H (74-99) mg/dL POC Glucose (mg/dL) (75-99) mg/dL Plasma Lactic Acid Timbo (0.7-2.0) mmol/L ALT 12 L (21-72) U/L Alkaline Phosphatase 176 H (38-126) U/L Total Protein 5.9 L (6.3-8.2) g/dL Albumin 3.4 L (3.5-5.0) g/dL LDL Cholesterol, Calc (0-99) mg/dL HDL Cholesterol (40-60) mg/dL 03/29/19 03/29/19 03/30/19 Range/Units 14:55 20:43 03:09 Hgb (13.0-17.5) gm/dL MCHC (31.0-37.0) g/dL RDW (11.5-15.5) % Lymphocytes # (1.0-4.8) k/uL D-Dimer (<0.60) mg/L FEU Sodium (137-145) mmol/L Carbon Dioxide (22-30) mmol/L Glucose (74-99) mg/dL POC Glucose (mg/dL) 188 H (75-99) mg/dL Plasma Lactic Acid Timbo 2.4 H* (0.7-2.0) mmol/L ALT (21-72) U/L Alkaline Phosphatase (38-126) U/L Total Protein (6.3-8.2) g/dL Albumin (3.5-5.0) g/dL LDL Cholesterol, Calc 101 H (0-99) mg/dL HDL Cholesterol 34 L (40-60) mg/dL 03/30/19 03/30/19 Range/Units 06:11 11:56 Hgb (13.0-17.5) gm/dL MCHC (31.0-37.0) g/dL RDW (11.5-15.5) % Lymphocytes # (1.0-4.8) k/uL D-Dimer (<0.60) mg/L FEU Sodium (137-145) mmol/L Carbon Dioxide (22-30) mmol/L Glucose (74-99) mg/dL POC Glucose (mg/dL) 167 H 164 H (75-99) mg/dL Plasma Lactic Acid Timbo (0.7-2.0) mmol/L ALT (21-72) U/L Alkaline Phosphatase (38-126) U/L Total Protein (6.3-8.2) g/dL Albumin (3.5-5.0) g/dL LDL Cholesterol, Calc (0-99) mg/dL HDL Cholesterol (40-60) mg/dL Thrombosis Risk Factor Assmnt - DVT/VTE Prophylaxis DVT/VTE Prophylaxis: Pharmacologic Prophylaxis ordered - Choose All That Apply Each Factor Represents 1 point: Abnormal pulmonary function (COPD), Age 41-60 years, Obesity (BMI >25) Thrombosis Risk Factor Assessment Total Risk Factor Score: 3 Thrombosis Risk Factor Assessment Level: Moderate Risk Assessment and Plan Assessment: Acute on Chronic CHF with systolic dysfunction ejection fraction 20% Chest pain with slightly elevated troponin level. Ruled out ACS. Patient has chronically elevated troponin level around 0.031 History of coronary artery disease with multiple stents in the past Ischemic cardiomyopathy status post AICD placement Chronic atrial fibrillation on anticoagulation with Eliquis History of cardiopulmonary arrest History of suicidal ideation Hyponatremia possibly hypovolemic in nature. Possible SIADH Hypertension. Patient is currently hypotensive. Hyperlipidemia History of diabetes mellitus type 2 History of diabetic peripheral neuropathy History of deep vein thrombosis and PE History of gastroesophageal reflux disease next line history of obesity Sleep apnea History of anemia Mild hyperkalemia Depression Obesity with BMI 32.5 DVT prophylaxis patient is already on full anticoagulation Plan: Patient will be continued on telemetry monitoring. Continue with aspirin statins, Plavix and Eliquis. Continue with low-dose beta blockers and monitor blood pressure. Continue with Bumex. Cardiology was consulted. Troponin levels are stable. Further recommendations based on the clinical course. Continue with insulin sliding scale and monitor sodium level as well Pain management with Tylenol. Avoid IV pain medications due to hypotension. Follow up closely and further recommendations based on the clinical course. Time with Patient: Greater than 30
[2019-03-31 00:58] LABS: Glucose,Whole Blood 109 mg/dL (75-99)
[2019-03-31] MEDS ORDERED: HALOPERIDOL LACTATE 5 MG/ML 1 ML VIAL IM STA (02:49)
[2019-03-31 06:29] LABS: Anisocytosis Slight; Basophils # (A) 0.2 k/uL (0-0.2); Basophils % (A) 3 %; Eosinophils # (A) 0.2 k/uL (0-0.7); Eosinophils % (A) 3 %; HCT 42.1 % (39.0-53.0); HGB 13.1 gm/dL (13.0-17.5); Hypochromasia Marked; Lymphocytes % (A) 15 %; MCH 27.7 pg (25.0-35.0); MCHC 31.1 g/dL (31.0-37.0); Mean Platelet Volume 6.7; Monocytes # (A) 0.4 k/uL (0-1.0); Monocytes % (A) 5 %; Neutrophils # (A) 4.9 k/uL (1.3-7.7); Neutrophils % (A) 71 %; Platelet Count 318 k/uL (150-450); Poikilocytosis Slight; RBC 4.73 m/uL (4.30-5.90); RDW 19.7 % (11.5-15.5); WBC 6.9 k/uL (3.8-10.6)
[2019-03-31 06:29] LABS: Glucose,Whole Blood 50 mg/dL (75-99)
[2019-03-31 06:52] LABS: Glucose,Whole Blood 65 mg/dL (75-99)
[2019-03-31 06:53] LABS: African American GFR (CKD) >90 (>60 ml/min/1.73 sqM); Anion Gap 8 mmol/L; Blood Urea Nitrogen 28 mg/dL (9-20); Calcium 8.9 mg/dL (8.4-10.2); Carbon Dioxide 25 mmol/L (22-30); Chloride 101 mmol/L (98-107); Potassium 4.3 mmol/L (3.5-5.1); Sodium 134 mmol/L (137-145)
[2019-03-31] MEDS: INSULIN ASPART (NovoLOG) 100 UNIT/ML VIAL SQ SCH ×4 (06:56→20:27)
[2019-03-31 07:01] LABS: Glucose,Whole Blood 109 mg/dL (75-99)
[2019-03-31 07:04] LABS: Glucose 49 mg/dL (74-99)
[2019-03-31] MEDS: APIXABAN 5 MG TAB PO SCH ×2 (08:35→20:27)
[2019-03-31] MEDS: METOPROLOL TARTRATE 50 MG TAB PO SCH ×2 (08:35→20:27)
[2019-03-31] MEDS: ISOSORBIDE MONONITRATE ER 60 MG TAB.ER.24H PO SCH (08:35)
[2019-03-31] MEDS: CLOPIDOGREL 75 MG TAB PO SCH (08:35)
[2019-03-31] MEDS: ARIPiprazole 5 MG TAB PO SCH (08:35)
[2019-03-31] MEDS: ASPIRIN 81 MG PO SCH (08:35)
[2019-03-31] MEDS: BUMETANIDE 1 MG TAB PO SCH ×2 (08:35→20:27)
[2019-03-31] MEDS: ASPIRIN 325 MG TAB PO SCH (08:35)
[2019-03-31] MEDS: PRIMIDONE 50 MG TAB PO SCH ×2 (08:35→20:27)
[2019-03-31] MEDS: PANTOPRAZOLE 40 MG TABLET PO SCH (08:35)
[2019-03-31] MEDS: GABAPENTIN 100 MG CAP PO SCH ×3 (08:35→20:27)
[2019-03-31] MEDS: LISINOPRIL 10 MG TAB PO SCH (08:35)
[2019-03-31] MEDS: SODIUM BICARBONATE TAB 650 MG TAB PO SCH (08:36)
[2019-03-31] MEDS: TAMSULOSIN 0.4 MG CAP.ER.24H PO SCH (08:36)
--- NOTE | 2019-03-31 13:51 | P.PN ---
Subjective Progress Note Date: 03/31/19 This is a 43-year-old gentleman with known history of coronary artery disease and prior PCI's, ischemic cardio myopathy with severe LV dysfunction, chronic systolic congestive heart failure, prior AICD was had multiple readmissions to the hospital for a variety of issues. He presented to the [facility] on this occasion with symptoms of chest discomfort. He had just been in the hospital and discharged 2 days prior. Patient was seen in consultation yesterday, he did have some mild leg edema, pleural effusions on the CAT scan and chest x-ray. Clinical picture suggestive of systolic congestive heart failure exacerbation. Patient was somewhat combative through the night last night, became somewhat violent, he was attempting to leave the hospital and in order was obtained for restraints for the patient. He currently has a sitter at bedside today. Today he is refusing to take any of his medications. Blood pressure 106/60 with a heart rate 70s, 96% on room air. White blood cell count 6.9, hemoglobin 13.1, platelet count 318. Sodium 134, potassium 4.3, BUN 28, creatinine 0.9. Objective - Vital Signs Vital signs: Vital Signs Temp 98.3 F 03/30/19 23:20 Pulse 76 03/31/19 11:49 Resp 18 03/31/19 11:49 BP 91/55 03/31/19 08:00 Pulse Ox 96 03/31/19 08:00 Intake & Output 03/30/19 03/31/19 03/31/19 18:59 06:59 18:59 Intake Total 1110 Balance 1110 Intake: Oral 1110 Other: # Voids 2 1 - Exam PHYSICAL EXAMINATION: GENERAL:43-year-old gentleman in no acute distress at the time of my examination HEENT: Head is atraumatic, normocephalic. Pupils equal, round. Sclera anicteric. Conjunctiva are clear. Mucous membranes of the mouth are moist. Neck is supple. There is no elevated jugular venous pressure.no carotid bruit is heard. HEART EXAMINATION: heart S1 and S2 systolic murmur. CHEST EXAMINATION:[ Lungs are clear to with diminished air entry to the bases. ABDOMEN: [ Soft, nontender. Bowel sounds are heard. No organomegaly noted]. EXTREMITIES:[ 2+ peripheral pulses with evidence of peripheral edema and no calf tenderness noted]. NEUROLOGIC [patient is awake, flat affect, depressed mood - Labs CBC & Chem 7: 03/31/19 06:17 03/31/19 06:17 Labs: Abnormal Lab Results - Last 24 Hours (Table) 03/30/19 03/30/19 03/31/19 Range/Units 16:53 20:13 00:57 RDW (11.5-15.5) % Sodium (137-145) mmol/L BUN (9-20) mg/dL Glucose (74-99) mg/dL POC Glucose (mg/dL) 145 H 164 H 109 H (75-99) mg/dL 03/31/19 03/31/19 03/31/19 Range/Units 06:17 06:17 06:26 RDW 19.7 H (11.5-15.5) % Sodium 134 L (137-145) mmol/L BUN 28 H (9-20) mg/dL Glucose 49 L* (74-99) mg/dL POC Glucose (mg/dL) 50 L (75-99) mg/dL 03/31/19 03/31/19 Range/Units 06:47 06:59 RDW (11.5-15.5) % Sodium (137-145) mmol/L BUN (9-20) mg/dL Glucose (74-99) mg/dL POC Glucose (mg/dL) 65 L 109 H (75-99) mg/dL Microbiology - Last 24 Hours (Table) 03/29/19 14:55 Blood Culture - Preliminary Blood No Growth after 24 hours Assessment and Plan Plan: Assessment and Plan #1 systolic congestive heart failure acute on chronic #2 known history of coronary artery disease with multiple PCI's #3 ischemic cardiomyopathy with prior AICD implantation #4 hypertension #5 hyperlipidemia #6 diabetes #7 prior CVA #8 obesity #9 noncompliance #10 depression Plan From cardiology's perspective, we'll continue this patient on his current medications. He is however refusing to take any of his medications today. DNP note has been reviewed, I agree with a documented findings and plan of care. Patient was seen and examined.
[2019-03-31 14:34] LABS: Hemoglobin A1C 6.3 % (4.0-6.0)
[2019-03-31] MEDS: DULoxetine HCL 60 MG CAPSULE.DR PO SCH ×2 (16:04→20:27)
[2019-03-31] MEDS: INSULIN DETEMIR (LEVEMIR) 100 UNIT/ML SYR SQ SCH (20:27)
--- NOTE | 2019-03-31 22:51 | P.PN ---
Subjective Progress Note Date: 03/31/19 Principal diagnosis: Acute on chronic CHF with systolic dysfunction Patient is a 43-year-old male with a known history of coronary artery disease and multiple stent placement, history of cardiopulmonary arrest with pulmonary embolism, ischemic cardiomyopathy status post AICD placement, chronic CHF with systolic dysfunction ejection fraction 20%, moderate to severe tricuspid re gurgitation, mild pulmonary hypertension, depression, chronic low blood pressure, diabetes type 2 and history of DVT who was discharged from hospital on 03/27/2019, was treated for acute CHF and depression. Patient was feeling well after discharge but developed left-sided sharp chest pain and woke up from sleep yesterday evening. He did have nausea and dry heaves and shortness of breath with diaphoresis. Patient came back to the hospital for evaluation. Patient also complains of increased leg swelling Denied any cough or sputum production. No headache or dizziness or lightheadedness. No fever no chills. Troponin level 0.025, 0.031 and 0.031 x-ray and BNP 7840 EKG showed paced rhythm Patient is currently saturating well on room air. Laboratory data showed WBC 5.3, hemoglobin 12.3 and platelets 270 3K Sodium 135, BUN 17 and creatinine 0.75 D-dimer 1.4, CT angiogram is negative for any pulmonary embolism. chest x-ray showed cardiomegaly with elevated diaphragm right with mid to lower acute infiltrate and/or atelectasis was suspected small right pleural effusion. He was treated. 03/31/2019 Patient is currently lying in the bed comfortably but since lethargic. Currently being treated for acute CHF exacerbation. Patient is otherwise refusing to take his medications including movements. Leg swelling is still present but slightly improved. Last night apparently patient to extended his that he wanted to shoot himself. Patient's informed the nursing staff. After that patient attempted to use the hospital and became violent. Patient was restrained briefly and was given a dose of 2 mg of IM Haldol. Psychiatry was consulted. Denied any, soft fever or chills. No complaints of chest pain. Continued on pain management with Tylenol. Blood pressure is on the lower side. Saturating well on room air. No leukocytosis. Remaining laboratory data within normal limits. Cardiology is following Active Medications Hydrocodone Bitart/Acetaminophen ([place] 5-325) 1 each PO Q6HR PRN PRN Reason: Pain Apixaban (Eliquis) 5 mg PO BID [facility] Last Admin: 03/31/19 20:27 Dose: Not Given Documented by: Aripiprazole (Abilify) 2.5 mg PO DAILY [facility] Last Admin: 03/31/19 08:35 Dose: Not Given Documented by: Aspirin (Aspirin) 325 mg PO DAILY [facility] Last Admin: 03/31/19 08:35 Dose: Not Given Documented by: Aspirin (Aspirin) 81 mg PO DAILY [facility] Last Admin: 03/31/19 08:35 Dose: Not Given Documented by: Bumetanide (Bumex) 2 mg PO BID [facility] Last Admin: 03/31/19 20:27 Dose: Not Given Documented by: Clopidogrel Bisulfate (Plavix) 75 mg PO DAILY [facility] Last Admin: 03/31/19 08:35 Dose: Not Given Documented by: Duloxetine HCl (Cymbalta) 60 mg PO BID [facility] Last Admin: 03/31/19 20:27 Dose: Not Given Documented by: Gabapentin (Neurontin) 100 mg PO TID [facility] Last Admin: 03/31/19 20:27 Dose: Not Given Documented by: Insulin Aspart (Novolog) 0 unit SQ [facility]; Protocol Last Admin: 03/31/19 20:27 Dose: Not Given Documented by: Insulin Detemir (Levemir) 30 unit SQ [facility] Last Admin: 03/31/19 20:27 Dose: Not Given Documented by: Isosorbide Mononitrate (Imdur) 60 mg PO DAILY [facility] Last Admin: 03/31/19 08:35 Dose: Not Given Documented by: Lisinopril (Zestril) 10 mg PO DAILY [facility] Last Admin: 03/31/19 08:35 Dose: Not Given Documented by: Metoprolol Tartrate (Lopressor) 50 mg PO BID [facility] Last Admin: 03/31/19 20:27 Dose: Not Given Documented by: Rosuvastatin 10 Mg 10 mg PO DAILY [facility] Last Admin: 03/31/19 08:35 Dose: Not Given Documented by: Pantoprazole Sodium (Protonix) 40 mg PO DAILY [facility] Last Admin: 03/31/19 08:35 Dose: Not Given Documented by: Primidone (Mysoline) 100 mg PO BID [facility] Last Admin: 03/31/19 20:27 Dose: Not Given Documented by: Sodium Bicarbonate (Sodium Bicarbonate Tab) 650 mg PO DAILY [facility] Last Admin: 03/31/19 08:36 Dose: Not Given Documented by: Tamsulosin HCl (Flomax) 0.4 mg PO DAILY [facility] Last Admin: 03/31/19 08:36 Dose: Not Given Documented by: Tramadol HCl (Ultram) 50 mg PO QID PRN PRN Reason: Pain Last Admin: 03/30/19 12:03 Dose: 50 mg Documented by: Objective - Vital Signs Vital signs: Vital Signs Temp 98.3 F 03/30/19 23:20 Pulse 76 03/31/19 11:49 Resp 18 03/31/19 11:49 BP 91/55 03/31/19 08:00 Pulse Ox 96 03/31/19 08:00 Intake & Output 03/30/19 03/31/19 03/31/19 18:59 06:59 18:59 Intake Total 1110 Balance 1110 Intake: Oral 1110 Other: # Voids 2 1 - Exam PHYSICAL EXAMINATION: Patient is lying in the bed comfortably, no acute distress, awake alert and oriented.. HEENT: Normocephalic. Neck is supple. Pupils reactive. Nostrils clear. Oral cavity is moist. Ears reveal no drainage. Neck reveals no JVD, carotid bruits, or thyromegaly. CHEST EXAMINATION: Trachea is central. Symmetrical expansion. Bibasilar diminished air entry Lung hendrix clear to auscultation and percussion. CARDIAC: Normal S1, S2 with no gallops. . Positive Systolic murmur ABDOMEN: Soft. Bowel sounds normal. No organomegaly. No abdominal bruits. Extremities: Trace edema. No clubbing or cyanosis Neurologically awake, alert, oriented x3 with well-coordinated movements. No focal deficits noted Skin: No rash or skin lesions. Psychiatric: Coperative. Nonsuicidal Musculoskeletal: No joint swelling or deformity. Normal range of motion. - Labs CBC & Chem 7: 03/31/19 06:17 03/31/19 06:17 Labs: Abnormal Lab Results - Last 24 Hours (Table) 03/30/19 03/30/19 03/31/19 Range/Units 16:53 20:13 00:57 RDW (11.5-15.5) % Sodium (137-145) mmol/L BUN (9-20) mg/dL Glucose (74-99) mg/dL POC Glucose (mg/dL) 145 H 164 H 109 H (75-99) mg/dL 03/31/19 03/31/19 03/31/19 Range/Units 06:17 06:17 06:26 RDW 19.7 H (11.5-15.5) % Sodium 134 L (137-145) mmol/L BUN 28 H (9-20) mg/dL Glucose 49 L* (74-99) mg/dL POC Glucose (mg/dL) 50 L (75-99) mg/dL 03/31/19 03/31/19 Range/Units 06:47 06:59 RDW (11.5-15.5) % Sodium (137-145) mmol/L BUN (9-20) mg/dL Glucose (74-99) mg/dL POC Glucose (mg/dL) 65 L 109 H (75-99) mg/dL Microbiology - Last 24 Hours (Table) 03/29/19 14:55 Blood Culture - Preliminary Blood No Growth after 24 hours Assessment and Plan Assessment: Acute on Chronic CHF with systolic dysfunction ejection fraction 20% Chest pain with slightly elevated troponin level. Ruled out ACS. Patient has chronically elevated troponin level around 0.031 Depression with acute suicidal ideation. History of coronary artery disease with multiple stents in the past Ischemic cardiomyopathy status post AICD placement Chronic atrial fibrillation on anticoagulation with Eliquis History of cardiopulmonary arrest History of suicidal ideation Hyponatremia possibly hypovolemic in nature. Possible SIADH Hypertension. Patient is currently hypotensive. Hyperlipidemia History of diabetes mellitus type 2 History of diabetic peripheral neuropathy History of deep vein thrombosis and PE History of gastroesophageal reflux disease next line history of obesity Sleep apnea History of anemia Mild hyperkalemia Depression Obesity with BMI 32.5 DVT prophylaxis patient is already on full anticoagulation Plan: Patient will be continued on telemetry monitoring. Continue with aspirin statins, Plavix and Eliquis. Continue with low-dose beta blockers and monitor blood pressure. Continue with Bumex. Cardiology is following. Psychiatry service was consulted.. Troponin levels are stable. Further recommendations based on the clinical course. Continue with insulin sliding scale and monitor sodium level as well Pain management with Tylenol. Avoid IV pain medications due to hypotension. Follow up closely and further recommendations based on the clinical course. Time with Patient: Greater than 30
[2019-04-01] MEDS: INSULIN ASPART (NovoLOG) 100 UNIT/ML VIAL SQ SCH ×4 (06:19→21:19)
[2019-04-01] MEDS: CLOPIDOGREL 75 MG TAB PO SCH (08:56)
[2019-04-01] MEDS: BUMETANIDE 1 MG TAB PO SCH ×2 (08:56→20:51)
[2019-04-01] MEDS: APIXABAN 5 MG TAB PO SCH ×2 (08:56→20:51)
[2019-04-01] MEDS: ASPIRIN 81 MG PO SCH (08:56)
[2019-04-01] MEDS: ARIPiprazole 5 MG TAB PO SCH (08:56)
[2019-04-01] MEDS: DULoxetine HCL 60 MG CAPSULE.DR PO SCH ×2 (08:56→20:51)
[2019-04-01] MEDS: ISOSORBIDE MONONITRATE ER 60 MG TAB.ER.24H PO SCH (08:56)
[2019-04-01] MEDS: GABAPENTIN 100 MG CAP PO SCH ×3 (08:56→20:51)
[2019-04-01] MEDS: ASPIRIN 325 MG TAB PO SCH (08:56)
[2019-04-01] MEDS: PRIMIDONE 50 MG TAB PO SCH ×2 (08:57→20:51)
[2019-04-01] MEDS: LISINOPRIL 10 MG TAB PO SCH (08:57)
[2019-04-01] MEDS: METOPROLOL TARTRATE 50 MG TAB PO SCH ×2 (08:57→20:51)
[2019-04-01] MEDS: TAMSULOSIN 0.4 MG CAP.ER.24H PO SCH (08:57)
[2019-04-01] MEDS: SODIUM BICARBONATE TAB 650 MG TAB PO SCH (08:57)
[2019-04-01] MEDS: PANTOPRAZOLE 40 MG TABLET PO SCH (08:57)
--- NOTE | 2019-04-01 10:51 | PN ---
PROGRESS NOTE Ti is a 43-year-old cardiac patient with complex and multiple medical problems including coronary artery disease, cardiomyopathy, congestive heart failure, who was admitted to hospital with chest pain and has been asking for Dilaudid and has been refusing to take his medications and I am told that he has had suicidal ideation. At the moment, he has a sitter at bedside. He is refusing to take medications, but does not seem to be in distress. I advised him at length to take his medications. On exam, heart rate is 76 beats per minute. He is refusing to have his blood pressure done. There is no jugular venous distention. Chest exam reveals good air entry bilaterally. Heart exam reveals first and second heart sounds. No gallop. Exam of the extremities reveals 1+ edema. Peripheral pulses are felt. Labs show a hemoglobin of 13.1, platelet count is 318. Potassium is 4.3, creatinine is 0.9. ASSESSMENT: 1. Acute exacerbation of chronic systolic heart failure. 2. Coronary artery disease, status post multivessel angioplasty. 3. Ischemic cardiomyopathy status post AICD. 4. Persistent atrial fibrillation. PLAN: 1. Hopefully we can convince the patient to take his medications. 2. Appears stable clinically. MMODL / IJN: [id number] /
[2019-04-01] MEDS ORDERED: NITROGLYCERIN SL TABS 0.4 MG TAB SUBLINGUAL PRN (11:53)
[2019-04-01 12:13] LABS: Glucose,Whole Blood 152 mg/dL (75-99)
[2019-04-01] MEDS ORDERED: traZODone HCL 50 MG TAB PO PRN (12:16)
[2019-04-01] MEDS: traMADol 50 MG TAB PO PRN ×2 (12:25→20:51)
--- NOTE | 2019-04-01 13:03 | P.CN ---
Psychiatric Consult - . Consult date: 04/01/19 Consult:: Reason for consultation: Suicidal threats Identifying data: Patient is a 43-year-old added male who has psychiatric history of depressive disorder, anxiety disorder, and PTSD with multiple medical co-morbidities including history of pulmonary embolism, ischemic cardiomyopathy, chronic CHF, pulmonary hypertension, and history of cardiopulmonary arrest. The patient was seen while he was at the medical floor. Chief complaint and history of present illness: The patient was admitted to medical floor because of CHF exacerbation with acute chest pain, shortness of breath, and bilateral leg swelling. The concern about suicidal threat was from the primary team because as per the nursing at the unit that patient texted his last night that he is going to kill himself if they didn't give him Dilaudid at the hospital. The nurse reported patient didn't verbalize any suicidal threats today and he didn't mention any suicidal threat besides this one time and it was absolutely related to not receiving Dilaudid for pain management. Patient became more frustrated as he didn't receive any Dilaudid and today he refuses to take any of his medications. Nurses reported few minutes before I arrived the patient requested nitroglycerin for chest pain. Based on psychiatric evaluation, the patient reported to me that he has been feeling tired and frustrated because the medical staff didn't understand him or his medical needs. He denies any history of abusing opioids or other street drugs for years and reports that that what the offer him for managing pain did not work for him in the past including [place] and Tylenol. The patient clearly denies any suicidal thoughts and reported what he texted his yesterday was out of frustration and anger because the staff didn't give him Dilaudid or discuss his pain management. He reports" I was talking out of anger because of my pain was not addressed and I was pissed off. Patient reports to me that the pain comes and severe attacks which could be debilitating and it's mainly chest pain. Patient denies any thoughts, intention, or plan to hurt himself or others and reports that he is not satisfied with the medical care at this hospital and he refused to take his medications because he wanted to go back home and start treatment with palliative care. Patient reports he was scheduled to start palliative care last week but he came back to the hospital because of shortness of breath. Patient reports feeling tired and exhausted dealing with multiple medical problems, but denies feeling hopeless, worthless, or suicidal. Patient was able to understand and express future goals to deal with his medical problem" one day at the time" with his goal to achieve best quality of life he could gets. Patient reports some sleep problems including difficulty to good sleep and wakes up frequently during the night. He denies lack of motivation or severe depression. Patient reports history of nightmares which was related to loss of his son who in 2000. He reports history of anxiety symptoms including racing thoughts, feeling tense for most of the time and sometimes not easy to relax. He denies any manic or psychotic symptoms including auditory or visual hallucinations, paranoid ideation, delusions, flight of ideas, euphoric mood, burst or unusual high energy, or lack need to sleep due to increased activities. He denies any history of self-injurious behavior. Past psychiatric history: Previous psychiatric hospitalization: Multiple psychiatric hospitalizations at this hospital with the last time was April 2018. The patient was seen by psychiatric service multiple times as a consultation and last time was seen by psychiatrist at this hospital was February of this year when he was restarted on Cymbalta and Abilify. Previous suicidal attempts: Reported previous suicidal attempt by trying to overdose" inject himself" was incident. Previous psychiatric treatment: He is currently not connected with outpatient psychiatric service even he tried to call [facility] multiple times. Substance use history: Nicotine: Denies use any tobacco products in his life Alcohol: reported quitted drinking alcohol more than 9 years ago Cannabis: stopped using marijuana more than 20 years ago Patient denies any history of IV drug use. Denies any history of substance use disorder treatment Family history of psychiatric illness: Denies any family history of mental illness, suicidal attempts, or addiction problems. Brief social history: Patient was born in [place] and moved to [place]. Reports highest level of education 11th grade. Currently on disability. Currently and has 2 children. Mental status examination; Appearance: The patient appears stated age, dressed in hospital gown, no specific features. Gait/posture: Gait not assessed because patient was lying in bed, o abnormal movements. Attitude and behavior: engaged, cooperative, fair eye contact. Motor activity: Normal psychomotor activity Speech: Normal rate, tone. Mood: Anxious Affect: Constricted Thought form: goal-directed, linear, coherent. Thought content: Non-delusional, denies suicidal thoughts, denies homicidal thoughts, denies intentions or plans. Perception: Denies any auditory or visual hallucinations Attention: No impairment. Patient was able to repeat serial 5. Orientation: Patient patient was fully oriented to time place person and situ ation. Insight: Patient has fair insight about his psychiatric disorder. Judgment: Patient has fair judgment about his psychiatric treatment. Assessment: Major depressive disorder, recurrent, moderate to severe by history. Anxiety disorder unspecified. Rule out PTSD. Recommendations: Addressed and ensured patient's safety, patient is not actively suicidal, and patient denies active plan or intent of suicide. Patient is psychiatrically stable to continued his psychiatric care as an outpatient, and does not meet the criteria for psychiatric hospitalization currently. Patient agreed to take all his medications after I discussed this decision with him. He was able to understand the risks, benefits and alternatives of taking his medications versus continue to refuse taking any medications. Please call the psychiatric team if you need any further help with the patient psychiatric treatment. Safety plan discussed with the patient if discharged including calling crisis line, returning to ED and calling 911 if he feels severely depressed, hopeless or suicidal. Discussed with the primary team to provide the patient with all resources before discharge. Medication management: Continue Cymbalta 60 mg BID for depression and anxiety Increase Abilify to 5 mg daily for better stabilization of mood. Start Trazodone 25 mg HS PRN for insomnia. Disposition, aftercare follow-up and referral requests to be communicated to the unit social service coordinator: Refer the patient to outpatient psychiatric services and therapy. Discussed the treatment plan with the requesting physician/service. Brief supportive psychotherapy was provided regarding patient's acute and chronic stressors. Psycho-education was provided to the patient. Thank you for permitting me to assist in this patient's treatment. Please call psychiatry department if you have any question or need further help with this case. 04/01/19 12:30
[2019-04-01] MEDS ORDERED: HYDROmorphone 0.5 MG/0.5 ML SYRINGE IVP PRN (14:04)
[2019-04-01 17:32] LABS: Glucose,Whole Blood 153 mg/dL (75-99)
[2019-04-01 21:19] LABS: Glucose,Whole Blood 140 mg/dL (75-99)
[2019-04-01] MEDS: INSULIN DETEMIR (LEVEMIR) 100 UNIT/ML SYR SQ SCH (21:21)
[2019-04-01] MEDS ORDERED: FUROSEMIDE 10 MG/ML 4 ML VIAL IV STA (21:35)
[2019-04-01 22:14] LABS: Glucose,Whole Blood 150 mg/dL (75-99)
[2019-04-01 23:19] LABS: Glucose,Whole Blood 159 mg/dL (75-99)
[2019-04-01 23:25] LABS: ABG Base Excess -11.6 mmol/L; ABG HCO3 15 mmol/L (21-25); ABG Oxygen Saturation 28.2 % (94-97); ABG PCO2 30 mmHg (35-45); ABG PH 7.31 (7.35-7.45); ABG TCO2 16 mmol/L (19-24); Allen Test Performed? Yes
[2019-04-01 23:31] LABS: ABG PO2 24 mmHg (83-108)
[2019-04-01 23:33] LABS: Glucose,Whole Blood 133 mg/dL (75-99)
[2019-04-01 23:46] LABS: ABG Base Excess -3.7 mmol/L; ABG HCO3 20 mmol/L (21-25); ABG Oxygen Saturation 98.2 % (94-97); ABG PCO2 30 mmHg (35-45); ABG PH 7.44 (7.35-7.45); ABG PO2 137 mmHg (83-108); ABG TCO2 21 mmol/L (19-24); Allen Test Performed? Yes
--- NOTE | 2019-04-01 23:47 | P.PN ---
Subjective Progress Note Date: 04/01/19 Principal diagnosis: Acute on chronic CHF with systolic dysfunction Patient is a 43-year-old male with a known history of coronary artery disease and multiple stent placement, history of cardiopulmonary arrest with pulmonary embolism, ischemic cardiomyopathy status post AICD placement, chronic CHF with systolic dysfunction ejection fraction 20%, moderate to severe tricuspid re gurgitation, mild pulmonary hypertension, depression, chronic low blood pressure, diabetes type 2 and history of DVT who was discharged from hospital on 03/27/2019, was treated for acute CHF and depression. Patient was feeling well after discharge but developed left-sided sharp chest pain and woke up from sleep yesterday evening. He did have nausea and dry heaves and shortness of breath with diaphoresis. Patient came back to the hospital for evaluation. Patient also complains of increased leg swelling Denied any cough or sputum production. No headache or dizziness or lightheadedness. No fever no chills. Troponin level 0.025, 0.031 and 0.031 x-ray and BNP 7840 EKG showed paced rhythm Patient is currently saturating well on room air. Laboratory data showed WBC 5.3, hemoglobin 12.3 and platelets 270 3K Sodium 135, BUN 17 and creatinine 0.75 D-dimer 1.4, CT angiogram is negative for any pulmonary embolism. chest x-ray showed cardiomegaly with elevated diaphragm right with mid to lower acute infiltrate and/or atelectasis was suspected small right pleural effusion. He was treated. 03/31/2019 Patient is currently lying in the bed comfortably but since lethargic. Currently being treated for acute CHF exacerbation. Patient is otherwise refusing to take his medications including movements. Leg swelling is still present but slightly improved. Last night apparently patient to extended his that he wanted to shoot himself. Patient's informed the nursing staff. After that patient attempted to use the hospital and became violent. Patient was restrained briefly and was given a dose of 2 mg of IM Haldol. Psychiatry was consulted. Denied any, soft fever or chills. No complaints of chest pain. Continued on pain management with Tylenol. Blood pressure is on the lower side. Saturating well on room air. No leukocytosis. Remaining laboratory data within normal limits. Cardiology is following 04/01/2019 Patient is currently sitting in the chair comfortably. Denied any complaints of chest pain or worsening shortness of breath. Still having significant leg swelling. Patient is requesting IV pain medications. Able to take his cardiac medications this morning. Patient was seen by psychiatric and recommends outpatient follow-up and constant observer has been discontinued. Abilify dose increased to 5 mg and added trazodone for insomnia. Anticipate discharge in next 24 hours more clinical improvement. Active Medications Hydrocodone Bitart/Acetaminophen ([place] 5-325) 1 each PO Q6HR PRN PRN Reason: Pain Apixaban (Eliquis) 5 mg PO BID [facility] Last Admin: 04/01/19 20:51 Dose: 5 mg Documented by: Aripiprazole (Abilify) 5 mg PO DAILY [facility] Aspirin (Aspirin) 325 mg PO DAILY [facility] Last Admin: 04/01/19 08:56 Dose: Not Given Documented by: Aspirin (Aspirin) 81 mg PO DAILY [facility] Last Admin: 04/01/19 08:56 Dose: Not Given Documented by: Bumetanide (Bumex) 2 mg PO BID [facility] Last Admin: 04/01/19 20:51 Dose: 2 mg Documented by: Clopidogrel Bisulfate (Plavix) 75 mg PO DAILY [facility] Last Admin: 04/01/19 08:56 Dose: Not Given Documented by: Duloxetine HCl (Cymbalta) 60 mg PO BID [facility] Last Admin: 04/01/19 20:51 Dose: 60 mg Documented by: Gabapentin (Neurontin) 100 mg PO TID [facility] Last Admin: 04/01/19 20:51 Dose: 100 mg Documented by: Hydromorphone HCl (Dilaudid) 0.5 mg IVP ONCE PRN PRN Reason: Moderate to Severe Pain Last Admin: 04/01/19 14:19 Dose: 0.5 mg Documented by: Norepinephrine Bitartrate 4 mg (/ Sodium Chloride) 254 mls @ 21.488 mls/hr IV .[id number] [facility]; Protocol Insulin Aspart (Novolog) 0 unit SQ ACHS [facility]; Protocol Last Admin: 04/01/19 21:19 Dose: Not Given Documented by: Insulin Detemir (Levemir) 30 unit SQ HS [facility] Last Admin: 04/01/19 21:21 Dose: 30 unit Documented by: Isosorbide Mononitrate (Imdur) 60 mg PO DAILY [facility] Last Admin: 04/01/19 08:56 Dose: Not Given Documented by: Lisinopril (Zestril) 10 mg PO DAILY [facility] Last Admin: 04/01/19 08:57 Dose: Not Given Documented by: Metoprolol Tartrate (Lopressor) 50 mg PO BID [facility] Last Admin: 04/01/19 20:51 Dose: 50 mg Documented by: Nitroglycerin (Nitrostat) 0.4 mg SUBLINGUAL Q5M PRN PRN Reason: Chest Pain Rosuvastatin 10 Mg 10 mg PO DAILY [facility] Last Admin: 04/01/19 08:57 Dose: Not Given Documented by: Pantoprazole Sodium (Protonix) 40 mg PO DAILY [facility] Last Admin: 04/01/19 08:57 Dose: Not Given Documented by: Primidone (Mysoline) 100 mg PO BID [facility] Last Admin: 04/01/19 20:51 Dose: 100 mg Documented by: Sodium Bicarbonate (Sodium Bicarbonate Tab) 650 mg PO DAILY [facility] Last Admin: 04/01/19 08:57 Dose: Not Given Documented by: Tamsulosin HCl (Flomax) 0.4 mg PO DAILY [facility] Last Admin: 04/01/19 08:57 Dose: Not Given Documented by: Tramadol HCl (Ultram) 50 mg PO QID PRN PRN Reason: Pain Last Admin: 04/01/19 20:51 Dose: 50 mg Documented by: Trazodone HCl (Desyrel) 25 mg PO HS PRN PRN Reason: Insomnia Last Admin: 04/01/19 20:52 Dose: 25 mg Documented by: Objective - Vital Signs Vital signs: Vital Signs Temp 98.5 F 04/01/19 14:17 Pulse 118 H 04/01/19 14:17 Resp 16 04/01/19 14:17 BP 137/73 04/01/19 14:17 Pulse Ox 100 04/01/19 14:17 Intake & Output 04/01/19 04/01/19 04/02/19 06:59 18:59 06:59 Intake Total 960 Balance 960 Intake: Oral 960 Other: Voiding Method Toilet # Voids 2 1 - Exam PHYSICAL EXAMINATION: Patient is lying in the bed comfortably, no acute distress, awake alert and oriented.. HEENT: Normocephalic. Neck is supple. Pupils reactive. Nostrils clear. Oral cavity is moist. Ears reveal no drainage. Neck reveals no JVD, carotid bruits, or thyromegaly. CHEST EXAMINATION: Trachea is central. Symmetrical expansion. Bibasilar diminished air entry Lung hendrix clear to auscultation and percussion. CARDIAC: Normal S1, S2 with no gallops. . Positive Systolic murmur ABDOMEN: Soft. Bowel sounds normal. No organomegaly. No abdominal bruits. Extremities: Bilateral 2+ edema. No clubbing or cyanosis Neurologically awake, alert, oriented x3 with well-coordinated movements. No focal deficits noted Skin: No rash or skin lesions. Psychiatric: Coperative. Nonsuicidal Musculoskeletal: No joint swelling or deformity. Normal range of motion. - Labs CBC & Chem 7: 03/31/19 06:17 03/31/19 06:17 Labs: Abnormal Lab Results - Last 24 Hours (Table) 04/01/19 04/01/19 04/01/19 Range/Units 11:50 17:30 21:17 POC Glucose (mg/dL) 152 H 153 H 140 H (75-99) mg/dL 04/01/19 Range/Units 22:13 POC Glucose (mg/dL) 150 H (75-99) mg/dL Microbiology - Last 24 Hours (Table) 03/29/19 14:55 Blood Culture - Preliminary Blood No Growth after 72 hours Assessment and Plan Assessment: Acute on Chronic CHF with systolic dysfunction ejection fraction 20% Chest pain with slightly elevated troponin level. Ruled out ACS. Patient has chronically elevated troponin level around 0.031 Depression with acute suicidal ideation. Patient was seen by psychiatric and recommends outpatient follow-up. Medication dose increased. History of coronary artery disease with multiple stents in the past Ischemic cardiomyopathy status post AICD placement Chronic atrial fibrillation on anticoagulation with Eliquis History of cardiopulmonary arrest History of suicidal ideation Hyponatremia possibly hypovolemic in nature. Possible SIADH Hypertension. Patient is currently hypotensive. Hyperlipidemia History of diabetes mellitus type 2 History of diabetic peripheral neuropathy History of deep vein thrombosis and PE History of gastroesophageal reflux disease next line history of obesity Sleep apnea History of anemia Mild hyperkalemia Depression Obesity with BMI 32.5 DVT prophylaxis patient is already on full anticoagulation Plan: Patient will be continued on telemetry monitoring. Continue with aspirin statins, Plavix and Eliquis. Continue with low-dose beta blockers and monitor blood pressure. Continue with Bumex. Cardiology is following. Psychiatry service was consulted.. Troponin levels are stable. Further recommendations based on the clinical course. Continue with insulin sliding scale and monitor sodium level as well Pain management with Tylenol. Avoid IV pain medications due to hypotension. Follow up closely and further recommendations based on the clinical course. Time with Patient: Greater than 30
[2019-04-02] MEDS: NOREPINEPHRINE 4 MG in SODIUM CHLORIDE 0.9% 250 ML IV SCH ×2 (00:02→09:55)
[2019-04-02] MEDS ORDERED: ONDANSETRON 4 MG/2 ML VIAL IVP PRN (04:25)
[2019-04-02 06:25] LABS: African American GFR (CKD) >90 (>60 ml/min/1.73 sqM); Anion Gap 13 mmol/L; Blood Urea Nitrogen 23 mg/dL (9-20); Calcium 8.5 mg/dL (8.4-10.2); Carbon Dioxide 22 mmol/L (22-30); Chloride 102 mmol/L (98-107); Glucose 123 mg/dL (74-99); Potassium 4.5 mmol/L (3.5-5.1); Sodium 137 mmol/L (137-145)
[2019-04-02 06:28] LABS: Appearance,Urine Cloudy (Clear); Bilirubin,Urine Negative (Negative); Blood,Urine Moderate (Negative); Color,Urine Yellow; Glucose,Urine (UA) Negative (Negative); Hyaline Casts,Urine 758 /lpf (0-2); Ketones,Urine Negative (Negative); Leukocyte Esterase,Urine Negative (Negative); Mucus,Urine Rare /hpf; Nitrite,Urine Negative (Negative); Protein,Urine 3+ (Negative); RBC,Urine 12 /hpf (0-5); Specific Gravity,Urine 1.015 (1.001-1.035); Urobilinogen,Urine <2.0 mg/dL (<2.0)
--- NOTE | 2019-04-02 06:41 | XR ---
EXAMINATION TYPE: XR chest 1V DATE OF EXAM: 04/02/2019 HISTORY: shortness of breath. REFERENCE: Previous study dated 03/29/2019. FINDINGS: A multilead pacing device is in place on the left. The heart is enlarged. There is a right- sided effusion which is worsened. There is associated right basilar airspace disease. The left lung a ppears clear. IMPRESSION: 1. CARDIOMEGALY. 2. RIGHT BASILAR AIRSPACE DISEASE. 3. RIGHT-SIDED EFFUSION.
[2019-04-02 06:48] LABS: Anisocytosis Slight; Basophils # (A) 0.1 k/uL (0-0.2); Basophils % (A) 2 %; Eosinophils # (A) 0.1 k/uL (0-0.7); Eosinophils % (A) 1 %; HCT 47.2 % (39.0-53.0); HGB 14.2 gm/dL (13.0-17.5); Hypochromasia Marked; Lymphocytes # (A) 1.3 k/uL (1.0-4.8); Lymphocytes % (A) 17 %; MCH 28.1 pg (25.0-35.0); MCV 93.7 fL (80.0-100.0); Mean Platelet Volume 6.5; Monocytes # (A) 0.6 k/uL (0-1.0); Monocytes % (A) 7 %; Neutrophils # (A) 5.7 k/uL (1.3-7.7); Neutrophils % (A) 71 %; Platelet Count 363 k/uL (150-450); Poikilocytosis Slight; RBC 5.04 m/uL (4.30-5.90); RDW 18.7 % (11.5-15.5); WBC 8.1 k/uL (3.8-10.6)
[2019-04-02 06:58] LABS: Glucose,Whole Blood 102 mg/dL (75-99)
[2019-04-02 07:11] LABS: Polychromasia Present
[2019-04-02] MEDS: INSULIN ASPART (NovoLOG) 100 UNIT/ML VIAL SQ SCH ×4 (07:39→20:33)
[2019-04-02] MEDS: PANTOPRAZOLE 40 MG TABLET PO SCH (08:32)
[2019-04-02] MEDS: TAMSULOSIN 0.4 MG CAP.ER.24H PO SCH (08:33)
[2019-04-02] MEDS: LISINOPRIL 10 MG TAB PO SCH (08:33)
[2019-04-02] MEDS: SODIUM BICARBONATE TAB 650 MG TAB PO SCH (08:33)
[2019-04-02] MEDS: DULoxetine HCL 60 MG CAPSULE.DR PO SCH ×2 (08:33→20:59)
[2019-04-02] MEDS: PRIMIDONE 50 MG TAB PO SCH ×2 (08:33→20:59)
[2019-04-02] MEDS: ARIPiprazole 5 MG TAB PO SCH (08:33)
[2019-04-02] MEDS: CLOPIDOGREL 75 MG TAB PO SCH (08:33)
[2019-04-02] MEDS: APIXABAN 5 MG TAB PO SCH ×2 (08:34→20:59)
[2019-04-02] MEDS: ISOSORBIDE MONONITRATE ER 60 MG TAB.ER.24H PO SCH (08:34)
[2019-04-02] MEDS: GABAPENTIN 100 MG CAP PO SCH ×3 (08:34→20:59)
[2019-04-02] MEDS: METOPROLOL TARTRATE 50 MG TAB PO SCH (08:35)
[2019-04-02] MEDS: BUMETANIDE 1 MG TAB PO SCH ×2 (10:52→21:03)
[2019-04-02 11:24] LABS: Glucose,Whole Blood 117 mg/dL (75-99)
--- NOTE | 2019-04-02 12:00 | P.CNPUL ---
History of Present Illness Consult date: 04/02/19 Chief complaint: hypotension History of present illness: 3-year-old male patient is known to us from previous admissions with a complicated history of cardiac disease, multivessel coronary artery disease, ischemic cardiomyopathy along with an EF of 20% and chronic hypotension, was brought into the intensive care unit yesterday as the patient became briefly hypotensive and this was above and beyond his baseline with a systolic blood pressure dropped down to mid 60s. He became also short of breath INR thick. He was brought into the intensive care unit. He was given a bolus of IV fluids to 50 mL and the patient was placed on pressors which was a minimal dose which improved his blood pressure and currently his blood pressure is back to 114/83. He is awake and alert is free of any chest pain. He is having on and off chest pain throughout this current and previous hospitalizations. The patient has had multiple stenting and he was deemed to be not a candidate for any further intervention based on that evaluation was done at [facility] and he reports.. The chest x-ray showing cardiomegaly and pleural effusion on the rig ht and this is also confirmed by CAT scan of the chest that was done at a time of admission and the patient is currently on Bumex 2 mg by mouth twice a day. Rest of the cardiac medication was reviewed. BNP level at time of admission was 7840. EKG rhythm is paced. His sodium is up to 137. CT angiogram was negative for pulmonary embolism. He has a Mtz catheter in place. He is producing adeq uate amount of urine output. Creatinine is down to 1.01. Review of Systems CONSTITUTIONAL: Increased tiredness and fatigue HEENT: No recent visual problems or hearing problems. Denied any sore throat. CARDIOVASCULAR: Chronic dyspnea, exertional along with episodic chest pain has been on a chronic basis. No recent syncope. PULMONARY: Chronic dyspnea shortness of breath, no cough, no hemoptysis. GASTROINTESTINAL: No diarrhea, no nausea, no vomiting, no abdominal pain. NEUROLOGICAL: No headaches, no weakness, no numbness. HEMATOLOGICAL: Denies any bleeding or petechiae. GENITOURINARY: Denies any burning micturition, frequency, or urgency. MUSCULOSKELETAL/RHEUMATOLOGICAL: Denies any joint pain, swelling, or any muscle pain. ENDOCRINE: Denies any polyuria or polydipsia. Past Medical History Past Medical History: Asthma, Coronary Artery Disease (CAD), Chest Pain / Angina, Heart Failure, CVA/TIA, Diabetes Mellitus, Deep Vein Thrombosis (DVT), GERD/Reflux, Hyperlipidemia, Hypertension, Myocardial Infarction (CA), Osteoarthritis (OA), Pneumonia, Skin Disorder, Sleep Apnea/CPAP/BIPAP Additional Past Medical History / Comment(s): Pt recently admitted to [facility] on 03/21/19 with chest pain possible unstable angina possible NSTEMI, history of chronic hyponatremia,, Other hx: multiple vessel CAD, ischemic cardiomyopathy, IDDM type II, diabetic neuropathy bilateral hands and feet, hypertensive cardiovascular disease, past cardiac arrest, SHELIA with no device, bronchitis, PE L lung, DVT L leg, chronic gastritis, degenerative disc disease, chronic back pain, depression with hx of suicide attempts with insulin, gastroparesis, psoriasis, UTI, migraines, TIA, PUD, hiatal hernia, L rotator cuff tear, bronchitis, poor circulation, pseudoaneurysm L groin post procedure, CVA 05/15/18 with TPA administration and TIAs x2 Last Myocardial Infarction Date:: October 2017 History of Any Multi-Drug Resistant Organisms: MRSA Date of last positivie culture/infection: 11/05/17 (Culture done at [facility]) MDRO Source:: legs Past Surgical History: AICD, Appendectomy, Cholecystectomy, Heart Catheterization With Stent, Hernia Repair Additional Past Surgical History / Comment(s): Pt has had multiple cardiac procedures- caths/stents/PTCA, last stent placed at [facility] -October2017, SAVANNAH, R inguinal hernia repair, umbilical hernia repair, 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 Date of Last Stent Placement:: 10/2018 Type of Cardiac Device: Biventricular Pacemaker, AICD Device Placement Date:: 09/19/15 Past Psychological History: Anxiety, Depression, PTSD Additional Psychological History / Comment(s): Several suicide attempts with use of insulin. PTSD - in 2000 his 3mo old son in his arms (born 2 months premature). Pt resides with his mother in law. He has a walker at home if needed. He no longer drives, his spouse drives. Pt states he had suicidal thoughts earlier in February, but none at this time. Smoking Status: Never smoker Past Alcohol Use History: None Reported Additional Past Alcohol Use History / Comment(s): Past alcohol abuse - pt states he quit drinking over 9 yrs ago. Past Drug Use History: None Reported Additional Drug Use History / Comment(s): Pt has smoked marijuana in the past - last smoked in 1999. - Past Family History Mother Family Medical History: Coronary Artery Disease (CAD), Myocardial Infarction (CA) Additional Family Medical History / Comment(s): 7 CA and faulty heart valve. Pt does not know the age when mother had her CA's. Father History Unknown: Yes Additional Family Medical History / Comment(s): Does not know who father is. Brother(s) Family Medical History: Cancer, Congestive Heart Failure (CHF), Myocardial Infarction (CA) Additional Family Medical History / Comment(s): Parkinsons. Pt does not know at what age his brother had an CA. Patient's other brother has lung CA Patient has Family Medical History: No Reported History Additional Family Medical History / Comment(s): There is a strong family history for heart disease, hypertension, and diabetes. Medications and Allergies Home Medications Medication Instructions Recorded Confirmed Type Pantoprazole [Protonix] 40 mg PO DAILY 04/01/18 03/29/19 History Nitroglycerin Sl Tabs [Nitrostat] 0.4 mg SUBLINGUAL Q5M PRN 11/08/18 03/29/19 History Tamsulosin HCl [Flomax] 0.4 mg PO DAILY 11/08/18 03/29/19 History Apixaban [Eliquis] 5 mg PO BID 02/27/19 03/29/19 History Clopidogrel [Plavix] 75 mg PO DAILY 02/27/19 03/29/19 History Albuterol Sulfate [Ventolin HFA] 2 puff INHALATION RT-Q6H PRN 03/08/19 03/29/19 History Bumetanide [BUMEX] 2 mg PO BID 03/08/19 03/29/19 History DULoxetine HCL [Cymbalta] 60 mg PO BID 03/08/19 03/29/19 History Gabapentin [Neurontin] 100 mg PO TID 03/08/19 03/29/19 History Insulin Glargine [Lantus] 30 units SQ HS 03/08/19 03/29/19 History Primidone [Mysoline] 100 mg PO BID 03/08/19 03/29/19 History Rosuvastatin [Crestor] 10 mg PO DAILY 03/08/19 03/29/19 History ARIPiprazole [Abilify] 2.5 mg PO DAILY 30 Days #30 tab 03/16/19 03/29/19 Rx Metoprolol Tartrate [Lopressor] 25 mg PO BID 30 Days #60 tab 03/16/19 03/29/19 Rx Sodium Bicarbonate Tab 650 mg PO DAILY 30 Days #30 tab 03/16/19 03/29/19 Rx traMADol HCl [Ultram] 50 mg PO QID PRN #12 tab 03/16/19 03/29/19 Rx Aspirin 81 mg PO DAILY 30 Days #30 chew 03/23/19 03/29/19 Rx INSULIN ASPART (NovoLOG) [NovoLOG See Protocol SQ AC-TID 03/25/19 03/29/19 History (formulary)] Isosorbide Mononitrate ER [Imdur] 60 mg PO DAILY #30 tab.er.24h 03/27/19 03/29/19 Rx Allergies Allergy/AdvReac Type Severity Reaction Status Date / Time erythromycin base Allergy Severe Rash/Hives Verified 03/29/19 14:16 [Erythromycin Base] cephalexin monohydrate Allergy Unknown Rash/Hives Verified 03/29/19 14:16 [From Keflex] codeine Allergy Unknown Unknown Verified 03/29/19 14:16 meclizine Allergy Unknown Unknown Verified 03/29/19 14:16 Penicillins Allergy Unknown Rash/Hives Verified 03/29/19 14:16 shellfish derived Allergy Unknown Anaphylaxis Verified 03/29/19 14:16 adhesive tape Allergy Rash/Hives Verified 03/29/19 14:16 Fish Containing Products Allergy Anaphylaxis Verified 03/29/19 14:16 [Fish] Iodinated Contrast Media Allergy Anaphylaxis Verified 03/29/19 14:16 silver Allergy Rash/Hives Verified 03/29/19 14:16 [From Tegaderm AG Mesh] naproxen AdvReac Unknown Compromises Verified 03/29/19 14:16 Kidney Function atorvastatin calcium AdvReac Myalgia Verified 03/29/19 14:16 [From Lipitor] hydrocodone [From [place]] AdvReac Rapid Verified 03/29/19 14:16 Heart Rate Physical Exam Vitals: Vital Signs Temp Pulse Pulse Resp BP BP Pulse Ox 04/02/19 11:00 81 17 138/104 98 04/02/19 10:00 78 21 121/100 98 04/02/19 09:00 76 16 116/79 100 04/02/19 08:00 99.1 F 73 18 112/84 100 04/02/19 07:30 74 16 94/56 100 04/02/19 07:15 76 20 96/40 100 04/02/19 07:00 87 19 110/76 100 04/02/19 06:45 79 22 88/35 100 04/02/19 06:30 77 20 107/62 100 04/02/19 06:15 74 19 137/50 100 04/02/19 06:00 72 19 134/100 100 04/02/19 05:45 74 21 118/96 100 04/02/19 05:30 75 15 64/45 100 04/02/19 05:15 78 17 65/36 97 04/02/19 05:00 75 18 100/44 99 04/02/19 04:45 74 17 104/91 04/02/19 04:30 87 8 L 135/52 04/02/19 04:16 74 18 80/44 04/02/19 04:01 37.4 F L 81 16 107/88 100 04/02/19 04:00 70 04/02/19 03:45 80 15 119/100 100 04/02/19 03:30 79 22 94/65 100 04/02/19 03:15 79 7 L 121/108 100 04/02/19 03:00 78 23 92/63 100 04/02/19 02:45 80 24 111/76 100 04/02/19 02:30 80 27 H 85/66 04/02/19 02:15 80 23 74/56 92 L 04/02/19 02:00 76 19 104/51 94 L 04/02/19 01:45 78 20 94/66 100 04/02/19 01:30 76 23 125/92 100 04/02/19 01:15 78 24 117/64 100 04/02/19 01:00 78 18 110/65 100 04/02/19 00:45 77 27 H 110/59 100 04/02/19 00:30 76 16 112/75 100 04/02/19 00:15 76 22 112/75 99 04/02/19 00:00 37.3 F L 78 70 22 89/70 100 04/01/19 23:45 77 7 L 89/51 100 04/01/19 23:38 79 7 L 88/64 56 L 04/01/19 23:15 70 8 L 98 04/01/19 23:00 70 8 L 98 04/01/19 20:00 98.6 F 116 H 18 130/91 96 04/01/19 14:17 98.5 F 118 H 16 137/73 100 Intake and Output 04/01/19 04/02/19 04/02/19 22:59 06:59 14:59 Intake Total 720 171.998 296.564 Output Total 113 123 Balance 720 58.998 173.564 Intake: IV 70 50 0.9 70 50 Intake, IV Titration 101.998 126.564 Amount Norepinephrine 4 mg In 101.998 126.564 Sodium Chloride 0.9% 250 ml @ 0.05 MCG/KG/MIN 21. 488 mls/hr IV .[id number] JAKE Rx#:[id number] Oral 720 120 Output: Urine 113 123 Other: Voiding Method Toilet Indwelling Catheter Indwelling Catheter # Voids 1 Weight 118.4 kg Gen. appearance, comfortable likely distress Head exam was generally normal. There was no scleral icterus or corneal arcus. Mucous membranes were moist. Neck was supple and without jugular venous distension, thyromegaly, or carotid bruits. Carotids were easily palpable bilaterally. There was no adenopathy. Lungs sounds are diminished and there is some bibasilar crackles. No wheezes or rhonchi. Heart sound regular with a systolic ejection murmur which is grade 3/6. No redness or heave or thrill. The patient is also an AICD in place. The ICD pocket is dry clean and intact. Pulses in the lower extremities are all diminished. Abdominal exam revealed normal bowel sounds. The abdomen was soft, non-tender, and without masses, organomegaly, or appreciable enlargement of the abdominal aorta. extremities revealed trace edema and there is no cyanosis or clubbing. Pulses are diminished. Examination of the skin revealed no evidence of significant rashes, suspicious appearing nevi or other concerning lesions. Neurologically moving all 4 extremities. Awake and alert. Following commands. psychiatric evaluation is consistent with severe depression. Results - Laboratory Findings CBC and BMP: 04/02/19 05:38 04/02/19 05:38 ABG WBC 8.1 k/uL (3.8-10.6) 04/02/19 05:38 RBC 5.04 m/uL (4.30-5.90) 04/02/19 05:38 Hgb 14.2 gm/dL (13.0-17.5) 04/02/19 05:38 Hct 47.2 % (39.0-53.0) 04/02/19 05:38 MCV 93.7 fL (80.0-100.0) 04/02/19 05:38 MCH 28.1 pg (25.0-35.0) 04/02/19 05:38 MCHC 30.0 g/dL (31.0-37.0) L 04/02/19 05:38 RDW 18.7 % (11.5-15.5) H 04/02/19 05:38 Plt Count 363 k/uL (150-450) 04/02/19 05:38 Neutrophils % 71 % 04/02/19 05:38 Lymphocytes % 17 % 04/02/19 05:38 Monocytes % 7 % 04/02/19 05:38 Eosinophils % 1 % 04/02/19 05:38 Basophils % 2 % 04/02/19 05:38 Neutrophils # 5.7 k/uL (1.3-7.7) 04/02/19 05:38 Lymphocytes # 1.3 k/uL (1.0-4.8) 04/02/19 05:38 Monocytes # 0.6 k/uL (0-1.0) 04/02/19 05:38 Eosinophils # 0.1 k/uL (0-0.7) 04/02/19 05:38 Basophils # 0.1 k/uL (0-0.2) 04/02/19 05:38 Manual Slide Review Performed 04/02/19 05:38 Polychromasia Present 04/02/19 05:38 Hypochromasia Marked 04/02/19 05:38 Poikilocytosis Slight 04/02/19 05:38 Anisocytosis Slight 04/02/19 05:38 PT 11.8 sec (9.0-12.0) 03/29/19 14:17 INR 1.1 (<1.2) 03/29/19 14:17 APTT 23.1 sec (22.0-30.0) 03/29/19 14:17 D-Dimer 1.41 mg/L FEU (<0.60) H 03/29/19 14:17 Sample Site Right Brachial 04/01/19 23:42 ABG pH 7.44 (7.35-7.45) 04/01/19 23:42 ABG pCO2 30 mmHg (35-45) L 04/01/19 23:42 ABG pO2 137 mmHg (83-108) H 04/01/19 23:42 ABG HCO3 20 mmol/L (21-25) L 04/01/19 23:42 ABG Total CO2 21 mmol/L (19-24) 04/01/19 23:42 ABG O2 Saturation 98.2 % (94-97) H 04/01/19 23:42 ABG Base Excess -3.7 mmol/L 04/01/19 23:42 Matteo Test Yes 04/01/19 23:42 Hemoglobin 7.2 gm/dL (13.0-17.5) L 04/01/19 23:22 FiO2 32 % 04/01/19 23:42 Sodium 137 mmol/L (137-145) 04/02/19 05:38 Potassium 4.5 mmol/L (3.5-5.1) 04/02/19 05:38 Chloride 102 mmol/L (98-107) 04/02/19 05:38 Carbon Dioxide 22 mmol/L (22-30) 04/02/19 05:38 Anion Gap 13 mmol/L 04/02/19 05:38 BUN 23 mg/dL (9-20) H 04/02/19 05:38 Creatinine 1.01 mg/dL (0.66-1.25) 04/02/19 05:38 Est GFR (CKD-EPI)AfAm >90 (>60 ml/min/1.73 sqM) 04/02/19 05:38 Est GFR (CKD-EPI)NonAf >90 (>60 ml/min/1.73 sqM) 04/02/19 05:38 Glucose 123 mg/dL (74-99) H 04/02/19 05:38 POC Glucose (mg/dL) 117 mg/dL (75-99) H 04/02/19 11:23 POC Glu Transmission Builder ID Melinda Dozier 04/02/19 11:[address] Glu mg/dL 134 03/31/19 06:17 Hemoglobin A1c 6.3 % (4.0-6.0) H 03/31/19 06:17 Lactic Ac Sepsis Rflx Y 03/29/19 16:27 Plasma Lactic Acid [place] 1.6 mmol/L (0.7-2.0) 03/29/19 20:41 Calcium 8.5 mg/dL (8.4-10.2) 04/02/19 05:38 Magnesium 2.0 mg/dL (1.6-2.3) 04/02/19 05:38 Total Bilirubin 1.1 mg/dL (0.2-1.3) 03/29/19 14:17 AST 29 U/L (17-59) 03/29/19 14:17 ALT 12 U/L (21-72) L 03/29/19 14:17 Alkaline Phosphatase 176 U/L (38-126) H 03/29/19 14:17 Troponin I 0.031 ng/mL (0.000-0.034) 03/30/19 03:09 NT-Pro-B Natriuret Pep 7840 pg/mL 03/29/19 14:17 Total Protein 5.9 g/dL (6.3-8.2) L 03/29/19 14:17 Albumin 3.4 g/dL (3.5-5.0) L 03/29/19 14:17 Triglycerides 101 mg/dL (<150) 03/30/19 03:09 Cholesterol 155 mg/dL (<200) 03/30/19 03:09 LDL Cholesterol, Calc 101 mg/dL (0-99) H 03/30/19 03:09 HDL Cholesterol 34 mg/dL (40-60) L 03/30/19 03:09 Urine Color Yellow 04/02/19 06:00 Urine Appearance Cloudy (Clear) 04/02/19 06:00 Urine pH 6.0 (5.0-8.0) 04/02/19 06:00 Ur Specific [place] 1.015 (1.001-1.035) 04/02/19 06:00 Urine Protein 3+ (Negative) H 04/02/19 06:00 Urine Glucose (UA) Negative (Negative) 04/02/19 06:00 Urine Ketones Negative (Negative) 04/02/19 06:00 Urine Blood Moderate (Negative) H 04/02/19 06:00 Urine Nitrite Negative (Negative) 04/02/19 06:00 Urine Bilirubin Negative (Negative) 04/02/19 06:00 Urine Urobilinogen <2.0 mg/dL (<2.0) 04/02/19 06:00 Ur Leukocyte Esterase Negative (Negative) 04/02/19 06:00 Urine RBC 12 /hpf (0-5) H 04/02/19 06:00 Urine WBC 3 /hpf (0-5) 04/02/19 06:00 Hyaline Casts 758 /lpf (0-2) H 04/02/19 06:00 Urine Mucus Rare /hpf (None) H 04/02/19 06:00 PT/INR, D-dimer PT 11.8 sec (9.0-12.0) 03/29/19 14:17 INR 1.1 (<1.2) 03/29/19 14:17 D-Dimer 1.41 mg/L FEU (<0.60) H 03/29/19 14:17 Abnormal lab findings: Abnormal Labs 03/29/19 03/29/19 03/29/19 14:17 14:17 14:17 Hgb 12.8 L MCHC 29.9 L RDW 19.6 H Lymphocytes # 0.7 L D-Dimer 1.41 H ABG pH ABG pCO2 ABG pO2 ABG HCO3 ABG Total CO2 ABG O2 Saturation Hemoglobin Sodium 135 L Carbon Dioxide 19 L BUN Glucose 153 H POC Glucose (mg/dL) Hemoglobin A1c Plasma Lactic Acid [place] ALT 12 L Alkaline Phosphatase 176 H Total Protein 5.9 L Albumin 3.4 L LDL Cholesterol, Calc HDL Cholesterol Urine Protein Urine Blood Urine RBC Hyaline Casts Urine Mucus 03/29/19 03/29/19 03/30/19 14:55 20:43 03:09 Hgb MCHC RDW Lymphocytes # D-Dimer ABG pH ABG pCO2 ABG pO2 ABG HCO3 ABG Total CO2 ABG O2 Saturation Hemoglobin Sodium Carbon Dioxide BUN Glucose POC Glucose (mg/dL) 188 H Hemoglobin A1c Plasma Lactic Acid [place] 2.4 H* ALT Alkaline Phosphatase Total Protein Albumin LDL Cholesterol, Calc 101 H HDL Cholesterol 34 L Urine Protein Urine Blood Urine RBC Hyaline Casts Urine Mucus 03/30/19 03/30/19 03/30/19 06:11 11:56 16:53 Hgb MCHC RDW Lymphocytes # D-Dimer ABG pH ABG pCO2 ABG pO2 ABG HCO3 ABG Total CO2 ABG O2 Saturation Hemoglobin Sodium Carbon Dioxide BUN Glucose POC Glucose (mg/dL) 167 H 164 H 145 H Hemoglobin A1c Plasma Lactic Acid Tim[place] ALT Alkaline Phosphatase Total Protein Albumin LDL Cholesterol, Calc HDL Cholesterol Urine Protein Urine Blood Urine RBC Hyaline Casts Urine Mucus 03/30/19 03/31/19 03/31/19 20:13 00:57 06:17 Hgb MCHC RDW Lymphocytes # D-Dimer ABG pH ABG pCO2 ABG pO2 ABG HCO3 ABG Total CO2 ABG O2 Saturation Hemoglobin Sodium Carbon Dioxide BUN Glucose POC Glucose (mg/dL) 164 H 109 H Hemoglobin A1c 6.3 H Plasma Lactic Acid Tim[place] ALT Alkaline Phosphatase Total Protein Albumin LDL Cholesterol, Calc HDL Cholesterol Urine Protein Urine Blood Urine RBC Hyaline Casts Urine Mucus 03/31/19 03/31/19 03/31/19 06:17 06:17 06:26 Hgb MCHC RDW 19.7 H Lymphocytes # D-Dimer ABG pH ABG pCO2 ABG pO2 ABG HCO3 ABG Total CO2 ABG O2 Saturation Hemoglobin Sodium 134 L Carbon Dioxide BUN 28 H Glucose 49 L* POC Glucose (mg/dL) 50 L Hemoglobin A1c Plasma Lactic Acid [place] ALT Alkaline Phosphatase Total Protein Albumin LDL Cholesterol, Calc HDL Cholesterol Urine Protein Urine Blood Urine RBC Hyaline Casts Urine Mucus 03/31/19 03/31/19 04/01/19 06:47 06:59 11:50 Hgb MCHC RDW Lymphocytes # D-Dimer ABG pH ABG pCO2 ABG pO2 ABG HCO3 ABG Total CO2 ABG O2 Saturation Hemoglobin Sodium Carbon Dioxide BUN Glucose POC Glucose (mg/dL) 65 L 109 H 152 H Hemoglobin A1c Plasma Lactic Acid [place] ALT Alkaline Phosphatase Total Protein Albumin LDL Cholesterol, Calc HDL Cholesterol Urine Protein Urine Blood Urine RBC Hyaline Casts Urine Mucus 04/01/19 04/01/19 04/01/19 17:30 21:17 22:13 Hgb MCHC RDW Lymphocytes # D-Dimer ABG pH ABG pCO2 ABG pO2 ABG HCO3 ABG Total CO2 ABG O2 Saturation Hemoglobin Sodium Carbon Dioxide BUN Glucose POC Glucose (mg/dL) 153 H 140 H 150 H Hemoglobin A1c Plasma Lactic Acid Tim[place] ALT Alkaline Phosphatase Total Protein Albumin LDL Cholesterol, Calc HDL Cholesterol Urine Protein Urine Blood Urine RBC Hyaline Casts Urine Mucus 04/01/19 04/01/19 04/01/19 23:06 23:22 23:32 Hgb MCHC RDW Lymphocytes # D-Dimer ABG pH 7.31 L ABG pCO2 30 L ABG pO2 24 L* ABG HCO3 15 L ABG Total CO2 16 L ABG O2 Saturation 28.2 L Hemoglobin 7.2 L Sodium Carbon Dioxide BUN Glucose POC Glucose (mg/dL) 159 H 133 H Hemoglobin A1c Plasma Lactic Acid [place] ALT Alkaline Phosphatase Total Protein Albumin LDL Cholesterol, Calc HDL Cholesterol Urine Protein Urine Blood Urine RBC Hyaline Casts Urine Mucus 04/01/19 04/02/19 04/02/19 23:42 05:38 05:38 Hgb MCHC 30.0 L RDW 18.7 H Lymphocytes # D-Dimer ABG pH ABG pCO2 30 L ABG pO2 137 H ABG HCO3 20 L ABG Total CO2 ABG O2 Saturation 98.2 H Hemoglobin Sodium Carbon Dioxide BUN 23 H Glucose 123 H POC Glucose (mg/dL) Hemoglobin A1c Plasma Lactic Acid [place] ALT Alkaline Phosphatase Total Protein Albumin LDL Cholesterol, Calc HDL Cholesterol Urine Protein Urine Blood Urine RBC Hyaline Casts Urine Mucus 04/02/19 04/02/19 04/02/19 06:00 06:56 11:23 Hgb MCHC RDW Lymphocytes # D-Dimer ABG pH ABG pCO2 ABG pO2 ABG HCO3 ABG Total CO2 ABG O2 Saturation Hemoglobin Sodium Carbon Dioxide BUN Glucose POC Glucose (mg/dL) 102 H 117 H Hemoglobin A1c Plasma Lactic Acid Tim[place] ALT Alkaline Phosphatase Total Protein Albumin LDL Cholesterol, Calc HDL Cholesterol Urine Protein 3+ H Urine Blood Moderate H Urine RBC 12 H Hyaline Casts 758 H Urine Mucus Rare H - Diagnostic Findings Chest x-ray: image reviewed Assessment and Plan Plan: 1 Hypotension. The patient Hypotension in the selective care unit. An A team was called and he is transferred to the the intensive care unit for norepinephrine which has been off for approximately an hour now. His blood pressure is stabilized and currently is feeling well and is free of any chest pain. Although he has multivessel coronary artery disease and he is having episodes of chest pain throughout this current and previous hospitalizations. He still has ischemic heart and unfortunately not much intervention can be done being. Surgical or vascular/endovascular or medical. 2 multivessel coronary artery disease with multiple coronary interventions and stenting. Based on cardiology evaluation from our hospital and [facility], no further interventions can be done from the cardiac standpoint. 3 ischemic cardiomyopathy status post AICD placement. He also has developed a right-sided pleural effusion which is related to CHF 4 previous history of DVT and pulmonary embolism 5 History of CVA 6 chronic episodic chest pain 7 previous history of cardiac arrest 8 chronic hypotension 9 chronic hyponatremia, sodium level is at 137 10 diabetes mellitus 11 hyperlipidemia 12 obstructive sleep apnea. 13 diabetic peripheral neuropathy 14 chronic ascites 15 degenerative disc disease 16 chronic back pain 17 gastroparesis 18 psoriasis 19 migraine 10 previous history of rotator cuff injury 21 peptic ulcer disease along with history of hiatal hernia. 22 chronic right-sided pleural effusion Plan Hold pressors. IV fluids to KVO. Salt restriction. Continue medical therapy. Prognosis poor. No role for thoracentesis. This pleural effusion is related to his CHF is likely a transudate. Hemodynamically is doing well. I may be able to transfer him out of the intensive care unit if he remains off pressors for the next 3-6 hours. Prognosis poor as mentioned.
[2019-04-02] MEDS: ASPIRIN 81 MG PO SCH (16:36)
[2019-04-02 16:47] LABS: Glucose,Whole Blood 114 mg/dL (75-99)
--- NOTE | 2019-04-02 17:47 | PN ---
PROGRESS NOTE Ti is a 43-year-old gentleman who is transferred to ICU following hypotension and shortness of breath on the floor. The patient was on IV Levophed, that has been tapered and stopped. This morning he is complaining of chest pain and asking for Dilaudid. On exam, patient is comfortable. Heart rate is 80 beats per minute, blood pressure is 138/90, respiratory rate 18. Chest exam reveals good air entry. Heart exam reveals first and second heart sounds. No gallop. Exam of the extremities reveals mild edema. LABS: Show that hemoglobin is 14.2, platelet count is 360. Blood gases show a pH of 7.4, PO2 of 137. Potassium is 4.5, and creatinine is 1. Will resume his medications including Eliquis 5 b.i.d., aspirin 81 mg daily, Plavix 75 daily, Imdur, Zestril 10 mg daily, Lopressor 25 b.i.d. ASSESSMENT: 1. Precordial chest pain, sharp, atypical. 2. Ischemic cardiomyopathy with severe LV dysfunction. 3. Status post AICD. 4. History of chronic systolic heart failure. Please leave the patient in ICU for today and transfer him out tomorrow. MMODL / IJN: [id number] /
[2019-04-02] MEDS ORDERED: ALPRAZolam 0.5 MG TAB PO STA (17:57)
[2019-04-02 20:34] LABS: Glucose,Whole Blood 126 mg/dL (75-99)
[2019-04-02] MEDS: INSULIN DETEMIR (LEVEMIR) 100 UNIT/ML SYR SQ SCH (20:59)
[2019-04-02] MEDS: METOPROLOL TARTRATE 25 MG TAB PO SCH (20:59)
--- NOTE | 2019-04-02 23:01 | P.PN ---
Subjective Progress Note Date: 04/02/19 Principal diagnosis: Acute on chronic CHF with systolic dysfunction Patient is a 43-year-old male with a known history of coronary artery disease and multiple stent placement, history of cardiopulmonary arrest with pulmonary embolism, ischemic cardiomyopathy status post AICD placement, chronic CHF with systolic dysfunction ejection fraction 20%, moderate to severe tricuspid re gurgitation, mild pulmonary hypertension, depression, chronic low blood pressure, diabetes type 2 and history of DVT who was discharged from hospital on 03/27/2019, was treated for acute CHF and depression. Patient was feeling well after discharge but developed left-sided sharp chest pain and woke up from sleep yesterday evening. He did have nausea and dry heaves and shortness of breath with diaphoresis. Patient came back to the hospital for evaluation. Patient also complains of increased leg swelling Denied any cough or sputum production. No headache or dizziness or lightheadedness. No fever no chills. Troponin level 0.025, 0.031 and 0.031 x-ray and BNP 7840 EKG showed paced rhythm Patient is currently saturating well on room air. Laboratory data showed WBC 5.3, hemoglobin 12.3 and platelets 270 3K Sodium 135, BUN 17 and creatinine 0.75 D-dimer 1.4, CT angiogram is negative for any pulmonary embolism. chest x-ray showed cardiomegaly with elevated diaphragm right with mid to lower acute infiltrate and/or atelectasis was suspected small right pleural effusion. He was treated. 03/31/2019 Patient is currently lying in the bed comfortably but since lethargic. Currently being treated for acute CHF exacerbation. Patient is otherwise refusing to take his medications including movements. Leg swelling is still present but slightly improved. Last night apparently patient to extended his that he wanted to shoot himself. Patient's informed the nursing staff. After that patient attempted to use the hospital and became violent. Patient was restrained briefly and was given a dose of 2 mg of IM Haldol. Psychiatry was consulted. Denied any, soft fever or chills. No complaints of chest pain. Continued on pain management with Tylenol. Blood pressure is on the lower side. Saturating well on room air. No leukocytosis. Remaining laboratory data within normal limits. Cardiology is following 04/01/2019 Patient is currently sitting in the chair comfortably. Denied any complaints of chest pain or worsening shortness of breath. Still having significant leg swelling. Patient is requesting IV pain medications. Able to take his cardiac medications this morning. Patient was seen by psychiatric and recommends outpatient follow-up and constant observer has been discontinued. Abilify dose increased to 5 mg and added trazodone for insomnia. Anticipate discharge in next 24 hours more clinical improvement. 04/02/2019 Patient is currently in the MICU. Patient became hypotensive overnight and was transferred to intensive care unit. Briefly required Levophed drip. Currently blood pressure is improved and off pressor support. Metoprolol and lisinopril dose was decreased. Currently denied any complaints of chest pain or shortness of breath. No nausea vomiting. No headache or dizziness or lightheadedness. Continue to monitor blood pressure for another 24 hours. Active Medications Hydrocodone Bitart/Acetaminophen ([place] 5-325) 1 each PO Q6HR PRN PRN Reason: Pain Apixaban (Eliquis) 5 mg PO BID [facility] Last Admin: 04/02/19 20:59 Dose: 5 mg Documented by: Aripiprazole (Abilify) 5 mg PO DAILY [facility] Last Admin: 04/02/19 08:33 Dose: 5 mg Documented by: Aspirin (Aspirin) 81 mg PO DAILY [facility] Last Admin: 04/02/19 16:36 Dose: 81 mg Documented by: Bumetanide (Bumex) 2 mg PO BID [facility] Last Admin: 04/02/19 21:03 Dose: 2 mg Documented by: Clopidogrel Bisulfate (Plavix) 75 mg PO DAILY [facility] Last Admin: 04/02/19 08:33 Dose: 75 mg Documented by: Duloxetine HCl (Cymbalta) 60 mg PO BID [facility] Last Admin: 04/02/19 20:59 Dose: 60 mg Documented by: Gabapentin (Neurontin) 100 mg PO TID [facility] Last Admin: 04/02/19 20:59 Dose: 100 mg Documented by: Hydromorphone HCl (Dilaudid) 0.5 mg IVP ONCE PRN PRN Reason: Moderate to Severe Pain Last Admin: 04/01/19 14:19 Dose: 0.5 mg Documented by: Norepinephrine Bitartrate 4 mg (/ Sodium Chloride) 254 mls @ 21.488 mls/hr IV .[id number] [facility]; Protocol Last Titration: 04/02/19 10:51 Dose: 0 mcg/kg/min, 0 mls/hr Documented by: Insulin Aspart (Novolog) 0 unit SQ [facility]; Protocol Last Admin: 04/02/19 20:33 Dose: Not Given Documented by: Insulin Detemir (Levemir) 30 unit SQ HS [facility] Last Admin: 04/02/19 20:59 Dose: 30 unit Documented by: Isosorbide Mononitrate (Imdur) 60 mg PO DAILY [facility] Last Admin: 04/02/19 08:34 Dose: Not Given Documented by: Lisinopril (Zestril) 10 mg PO DAILY [facility] Last Admin: 04/02/19 08:33 Dose: Not Given Documented by: Metoprolol Tartrate (Lopressor) 25 mg PO BID [facility] Last Admin: 04/02/19 20:59 Dose: 25 mg Documented by: Nitroglycerin (Nitrostat) 0.4 mg SUBLINGUAL Q5M PRN PRN Reason: Chest Pain Rosuvastatin 10 Mg 10 mg PO DAILY [facility] Last Admin: 04/02/19 09:06 Dose: Not Given Documented by: Ondansetron HCl (Zofran) 4 mg IVP Q6HR PRN PRN Reason: Nausea And Vomiting Last Admin: 04/02/19 04:30 Dose: 4 mg Documented by: Pantoprazole Sodium (Protonix) 40 mg PO DAILY [facility] Last Admin: 04/02/19 08:32 Dose: 40 mg Documented by: Primidone (Mysoline) 100 mg PO BID [facility] Last Admin: 04/02/19 20:59 Dose: 100 mg Documented by: Sodium Bicarbonate (Sodium Bicarbonate Tab) 650 mg PO DAILY [facility] Last Admin: 04/02/19 08:33 Dose: 650 mg Documented by: Tamsulosin HCl (Flomax) 0.4 mg PO DAILY [facility] Last Admin: 04/02/19 08:33 Dose: 0.4 mg Documented by: Tramadol HCl (Ultram) 50 mg PO QID PRN PRN Reason: Pain Last Admin: 04/01/19 20:51 Dose: 50 mg Documented by: Trazodone HCl (Desyrel) 25 mg PO HS PRN PRN Reason: Insomnia Last Admin: 04/01/19 20:52 Dose: 25 mg Documented by: Objective - Vital Signs Vital signs: Vital Signs Temp 99.1 F 04/02/19 08:00 Pulse 81 04/02/19 11:00 Resp 17 04/02/19 11:00 BP 138/104 04/02/19 11:00 Pulse Ox 98 04/02/19 11:00 Intake & Output 04/01/19 04/02/19 04/02/19 18:59 06:59 18:59 Intake Total 960 171.998 296.564 Output Total 113 123 Balance 960 58.998 173.564 Weight 118.4 kg Intake: IV 70 50 0.9 70 50 Intake, IV Titration 101.998 126.564 Amount Norepinephrine 4 mg In 101.998 126.564 Sodium Chloride 0.9% 250 ml @ 0.05 MCG/KG/MIN 21. 488 mls/hr IV .[id number] [facility] Rx#:[id number] Oral 960 120 Output: Urine 113 123 Other: Voiding Method Indwelling Catheter Indwelling Catheter # Voids 1 1 - Exam PHYSICAL EXAMINATION: Patient is lying in the bed comfortably, no acute distress, awake alert and oriented.. HEENT: Normocephalic. Neck is supple. Pupils reactive. Nostrils clear. Oral cavity is moist. Ears reveal no drainage. Neck reveals no JVD, carotid bruits, or thyromegaly. CHEST EXAMINATION: Trachea is central. Symmetrical expansion. Bibasilar diminished air entry Lung hendrix clear to auscultation and percussion. CARDIAC: Normal S1, S2 with no gallops. . Positive Systolic murmur ABDOMEN: Soft. Bowel sounds normal. No organomegaly. No abdominal bruits. Extremities: Bilateral 2+ edema. No clubbing or cyanosis Neurologically awake, alert, oriented x3 with well-coordinated movements. No focal deficits noted Skin: No rash or skin lesions. Psychiatric: Coperative. Nonsuicidal Musculoskeletal: No joint swelling or deformity. Normal range of motion. - Labs CBC & Chem 7: 04/02/19 05:38 04/02/19 05:38 Labs: Abnormal Lab Results - Last 24 Hours (Table) 04/01/19 04/01/19 04/01/19 Range/Units 17:30 21:17 22:13 MCHC (31.0-37.0) g/dL RDW (11.5-15.5) % ABG pH (7.35-7.45) ABG pCO2 (35-45) mmHg ABG pO2 (83-108) mmHg ABG HCO3 (21-25) mmol/L ABG Total CO2 (19-24) mmol/L ABG O2 Saturation (94-97) % Hemoglobin (13.0-17.5) gm/dL BUN (9-20) mg/dL Glucose (74-99) mg/dL POC Glucose (mg/dL) 153 H 140 H 150 H (75-99) mg/dL Urine Protein (Negative) Urine Blood (Negative) Urine RBC (0-5) /hpf Hyaline Casts (0-2) /lpf Urine Mucus (None) /hpf 04/01/19 04/01/19 04/01/19 Range/Units 23:06 23:22 23:32 MCHC (31.0-37.0) g/dL RDW (11.5-15.5) % ABG pH 7.31 L (7.35-7.45) ABG pCO2 30 L (35-45) mmHg ABG pO2 24 L* (83-108) mmHg ABG HCO3 15 L (21-25) mmol/L ABG Total CO2 16 L (19-24) mmol/L ABG O2 Saturation 28.2 L (94-97) % Hemoglobin 7.2 L (13.0-17.5) gm/dL BUN (9-20) mg/dL Glucose (74-99) mg/dL POC Glucose (mg/dL) 159 H 133 H (75-99) mg/dL Urine Protein (Negative) Urine Blood (Negative) Urine RBC (0-5) /hpf Hyaline Casts (0-2) /lpf Urine Mucus (None) /hpf 04/01/19 04/02/19 04/02/19 Range/Units 23:42 05:38 05:38 MCHC 30.0 L (31.0-37.0) g/dL RDW 18.7 H (11.5-15.5) % ABG pH (7.35-7.45) ABG pCO2 30 L (35-45) mmHg ABG pO2 137 H (83-108) mmHg ABG HCO3 20 L (21-25) mmol/L ABG Total CO2 (19-24) mmol/L ABG O2 Saturation 98.2 H (94-97) % Hemoglobin (13.0-17.5) gm/dL BUN 23 H (9-20) mg/dL Glucose 123 H (74-99) mg/dL POC Glucose (mg/dL) (75-99) mg/dL Urine Protein (Negative) Urine Blood (Negative) Urine RBC (0-5) /hpf Hyaline Casts (0-2) /lpf Urine Mucus (None) /hpf 04/02/19 04/02/19 04/02/19 Range/Units 06:00 06:56 11:23 MCHC (31.0-37.0) g/dL RDW (11.5-15.5) % ABG pH (7.35-7.45) ABG pCO2 (35-45) mmHg ABG pO2 (83-108) mmHg ABG HCO3 (21-25) mmol/L ABG Total CO2 (19-24) mmol/L ABG O2 Saturation (94-97) % Hemoglobin (13.0-17.5) gm/dL BUN (9-20) mg/dL Glucose (74-99) mg/dL POC Glucose (mg/dL) 102 H 117 H (75-99) mg/dL Urine Protein 3+ H (Negative) Urine Blood Moderate H (Negative) Urine RBC 12 H (0-5) /hpf Hyaline Casts 758 H (0-2) /lpf Urine Mucus Rare H (None) /hpf Microbiology - Last 24 Hours (Table) 03/29/19 14:55 Blood Culture - Preliminary Blood No Growth after 72 hours Assessment and Plan Assessment: Acute on Chronic CHF with systolic dysfunction ejection fraction 20% Cardiogenic shock requiring pressor support. Off lisinopril drip now. Chest pain with slightly elevated troponin level. Ruled out ACS. Patient has chronically elevated troponin level around 0.031 Depression with acute suicidal ideation. Patient was seen by psychiatric and recommends outpatient follow-up. Medication dose increased. History of coronary artery disease with multiple stents in the past Ischemic cardiomyopathy status post AICD placement Chronic atrial fibrillation on anticoagulation with Eliquis History of cardiopulmonary arrest History of suicidal ideation Hyponatremia possibly hypovolemic in nature. Possible SIADH Hypertension. Patient is currently hypotensive. Hyperlipidemia History of diabetes mellitus type 2 History of diabetic peripheral neuropathy History of deep vein thrombosis and PE History of gastroesophageal reflux disease next line history of obesity Sleep apnea History of anemia Mild hyperkalemia Depression Obesity with BMI 32.5 DVT prophylaxis patient is already on full anticoagulation Plan: Patient will be continued on telemetry monitoring. Continue with aspirin statins, Plavix and Eliquis. Continue with low-dose beta blockers and monitor blood pressure. Continue with Bumex. Cardiology is following. Psychiatry service was consulted.. Troponin levels are stable. Further recommendations based on the clinical course. Continue with insulin sliding scale and monitor sodium level as well Pain management with Tylenol. Avoid IV pain medications due to hypotension. Follow up closely and further recommendations based on the clinical course. Time with Patient: Greater than 30
[2019-04-03 05:45] LABS: Anisocytosis Slight; Basophils # (A) 0.1 k/uL (0-0.2); Basophils % (A) 1 %; Eosinophils # (A) 0.2 k/uL (0-0.7); Eosinophils % (A) 4 %; HCT 41.3 % (39.0-53.0); HGB 12.6 gm/dL (13.0-17.5); Hypochromasia Marked; Lymphocytes # (A) 0.8 k/uL (1.0-4.8); Lymphocytes % (A) 18 %; MCHC 30.4 g/dL (31.0-37.0); MCV 91.9 fL (80.0-100.0); Mean Platelet Volume 6.3; Monocytes # (A) 0.3 k/uL (0-1.0); Monocytes % (A) 7 %; Neutrophils # (A) 2.9 k/uL (1.3-7.7); Neutrophils % (A) 66 %; Platelet Count 255 k/uL (150-450); Poikilocytosis Slight; RDW 18.7 % (11.5-15.5); WBC 4.4 k/uL (3.8-10.6)
[2019-04-03 05:58] LABS: African American GFR (CKD) >90 (>60 ml/min/1.73 sqM); Anion Gap 6 mmol/L; Blood Urea Nitrogen 25 mg/dL (9-20); Calcium 8.5 mg/dL (8.4-10.2); Carbon Dioxide 29 mmol/L (22-30); Chloride 101 mmol/L (98-107); Glucose 66 mg/dL (74-99); Magnesium 1.8 mg/dL (1.6-2.3); Potassium 4.1 mmol/L (3.5-5.1); Sodium 136 mmol/L (137-145)
[2019-04-03 06:35] LABS: Glucose,Whole Blood 64 mg/dL (75-99)
[2019-04-03] MEDS: INSULIN ASPART (NovoLOG) 100 UNIT/ML VIAL SQ SCH ×2 (06:39→12:03)
[2019-04-03 06:56] LABS: Glucose,Whole Blood 68 mg/dL (75-99)
[2019-04-03 07:22] LABS: Glucose,Whole Blood 110 mg/dL (75-99)
--- NOTE | 2019-04-03 07:34 | XR ---
EXAMINATION TYPE: XR chest 1V DATE OF EXAM: 04/03/2019 HISTORY: pleural effusion . REFERENCE: Previous study dated 04/02/2019. FINDINGS: There is a bipolar pacemaker place on the left. The heart is enlarged. There is continuing right basilar airspace disease as well as a right effusion . The left lung is relatively clear. IMPRESSION: NO SIGNIFICANT INTERVAL CHANGE IN THE APPEARANCE OF THE CHEST.
[2019-04-03] MEDS: NOREPINEPHRINE 4 MG in SODIUM CHLORIDE 0.9% 250 ML IV SCH (07:52)
[2019-04-03] MEDS: PANTOPRAZOLE 40 MG TABLET PO SCH (08:55)
[2019-04-03] MEDS: CLOPIDOGREL 75 MG TAB PO SCH (08:55)
[2019-04-03] MEDS: GABAPENTIN 100 MG CAP PO SCH (08:55)
[2019-04-03] MEDS: ASPIRIN 81 MG PO SCH (08:55)
[2019-04-03] MEDS: APIXABAN 5 MG TAB PO SCH (08:56)
[2019-04-03] MEDS: METOPROLOL TARTRATE 25 MG TAB PO SCH (08:56)
[2019-04-03] MEDS: SODIUM BICARBONATE TAB 650 MG TAB PO SCH (08:57)
[2019-04-03] MEDS: PRIMIDONE 50 MG TAB PO SCH (08:57)
[2019-04-03] MEDS: DULoxetine HCL 60 MG CAPSULE.DR PO SCH (08:57)
[2019-04-03] MEDS: TAMSULOSIN 0.4 MG CAP.ER.24H PO SCH (08:58)
[2019-04-03] MEDS: BUMETANIDE 1 MG TAB PO SCH (09:05)
[2019-04-03] MEDS: ARIPiprazole 5 MG TAB PO SCH (09:05)
[2019-04-03] MEDS: LISINOPRIL 10 MG TAB PO SCH (10:44)
[2019-04-03] MEDS: ISOSORBIDE MONONITRATE ER 60 MG TAB.ER.24H PO SCH (10:44)
[2019-04-03 11:41] LABS: Glucose,Whole Blood 105 mg/dL (75-99)
[2019-04-03 12:02] VITALS: PULSE 76
--- NOTE | 2019-04-03 12:36 | P.PN ---
Subjective Progress Note Date: 04/03/19 43-year-old male patient is known to us from previous admissions with a complic ated history of cardiac disease, multivessel coronary artery disease, ischemic cardiomyopathy along with an EF of 20% and chronic hypotension, was brought into the intensive care unit yesterday as the patient became briefly hypotensive and this was above and beyond his baseline with a systolic blood pressure dropped down to mid 60s. He became also short of breath INR thick. He was brought into the intensive care unit. He was given a bolus of IV fluids to 50 mL and the patient was placed on pressors which was a minimal dose which improved his blood pressure and currently his blood pressure is back to 114/83. He is awake and alert is free of any chest pain. He is having on and off chest pain throughout this current and previous hospitalizations. The patient has had multiple stenting and he was deemed to be not a candidate for any further intervention based on that evaluation was done at [facility] and he reports.. The chest x-ray showing cardiomegaly and pleural effusion on the right and this is also confirmed by CAT scan of the chest that was done at a time of admission and the patient is currently on Bumex 2 mg by mouth twice a day. Rest of the cardiac medication was reviewed. BNP level at time of admission was 7840. EKG rhythm is paced. His sodium is up to 137. CT angiogram was negative for pulmonary embolism. He has a Mtz catheter in place. He is producing adequate amount of urine output. Creatinine is down to 1.01. On today's evaluation of 04/03/2019, the patient is awake and alert and he is normotensive. No further episodes of hypotension. He is free of chest pain this morning . Pulse ox is 98% on 2 L of oxygen by nasal cannula. He was s ubsequently transitioned to room air oxygen. BP is 102/73. Tolerated his diet. No nausea. No vomiting. No emesis. No other significant events such as cardiac arrhythmias. The patient be transferred up to selective care. Objective - Vital Signs Vital signs: Vital Signs Temp 96.8 F L 04/03/19 04:00 Pulse 76 04/03/19 12:00 Resp 14 04/03/19 12:00 BP 102/73 04/03/19 12:00 Pulse Ox 98 04/03/19 12:00 Intake & Output 04/02/19 04/03/19 04/03/19 18:59 06:59 18:59 Intake Total 366.564 120 50 Output Total 1723 2320 450 Balance -1356.436 -2200 -400 Weight 118 kg Intake: IV 120 120 50 0.9 120 120 50 Intake, IV Titration 126.564 Amount Norepinephrine 4 mg In 126.564 Sodium Chloride 0.9% 250 ml @ 0.05 MCG/KG/MIN 21. 488 mls/hr IV .[id number] [facility] Rx#:[id number] Oral 120 Output: Urine 1723 2320 450 Other: Voiding Method Indwelling Catheter Indwelling Catheter Indwelling Catheter - Exam Gen. appearance, comfortable likely distress Head exam was generally normal. There was no scleral icterus or corneal arcus. Mucous membranes were moist. Neck was supple and without jugular venous distension, thyromegaly, or carotid bruits. Carotids were easily palpable bilaterally. There was no adenopathy. Lungs sounds are diminished and there is some bibasilar crackles. No wheezes or rhonchi. Heart sound regular with a systolic ejection murmur which is grade 3/6. No redness or heave or thrill. The patient is also an AICD in place. The ICD pocket is dry clean and intact. Pulses in the lower extremities are all diminished. Abdominal exam revealed normal bowel sounds. The abdomen was soft, non-tender, and without masses, organomegaly, or appreciable enlargement of the abdominal aorta. extremities revealed trace edema and there is no cyanosis or clubbing. Pulses are diminished. Examination of the skin revealed no evidence of significant rashes, suspicious appearing nevi or other concerning lesions. Neurologically moving all 4 extremities. Awake and alert. Following commands. psychiatric evaluation is consistent with severe depression. - Labs CBC & Chem 7: 04/03/19 05:22 04/03/19 05:22 Labs: Abnormal Lab Results - Last 24 Hours (Table) 04/02/19 04/02/19 04/03/19 Range/Units 16:45 20:33 05:22 Hgb 12.6 L (13.0-17.5) gm/dL MCHC 30.4 L (31.0-37.0) g/dL RDW 18.7 H (11.5-15.5) % Lymphocytes # 0.8 L (1.0-4.8) k/uL Sodium (137-145) mmol/L BUN (9-20) mg/dL Glucose (74-99) mg/dL POC Glucose (mg/dL) 114 H 126 H (75-99) mg/dL 04/03/19 04/03/19 04/03/19 Range/Units 05:22 06:33 06:55 Hgb (13.0-17.5) gm/dL MCHC (31.0-37.0) g/dL RDW (11.5-15.5) % Lymphocytes # (1.0-4.8) k/uL Sodium 136 L (137-145) mmol/L BUN 25 H (9-20) mg/dL Glucose 66 L (74-99) mg/dL POC Glucose (mg/dL) 64 L 68 L (75-99) mg/dL 04/03/19 04/03/19 Range/Units 07:20 11:40 Hgb (13.0-17.5) gm/dL MCHC (31.0-37.0) g/dL RDW (11.5-15.5) % Lymphocytes # (1.0-4.8) k/uL Sodium (137-145) mmol/L BUN (9-20) mg/dL Glucose (74-99) mg/dL POC Glucose (mg/dL) 110 H 105 H (75-99) mg/dL Microbiology - Last 24 Hours (Table) 03/29/19 14:55 Blood Culture - Preliminary Blood No Growth after 96 hours Assessment and Plan Plan: 1 Hypotension. The patient Hypotension in the selective care unit. An A team was called and he is transferred to the the intensive care unit for norepinephrine which has been off for approximately an hour now. His blood pressure is stabilized and currently is feeling well and is free of any chest pain. Although he has multivessel coronary artery disease and he is having episodes of chest pain throughout this current and previous hospitalizations. He still has ischemic heart and unfortunately not much intervention can be done being. Surgical or vascular/endovascular or medical. 2 multivessel coronary artery disease with multiple coronary interventions and stenting. Based on cardiology evaluation from our hospital and [facility], no further interventions can be done from the cardiac standpoint. 3 ischemic cardiomyopathy status post AICD placement. He also has developed a right-sided pleural effusion which is related to CHF 4 previous history of DVT and pulmonary embolism 5 History of CVA 6 chronic episodic chest pain 7 previous history of cardiac arrest 8 chronic hypotension 9 chronic hyponatremia, sodium level is at 137 10 diabetes mellitus 11 hyperlipidemia 12 obstructive sleep apnea. 13 diabetic peripheral neuropathy 14 chronic ascites 15 degenerative disc disease 16 chronic back pain 17 gastroparesis 18 psoriasis 19 migraine 10 previous history of rotator cuff injury 21 peptic ulcer disease along with history of hiatal hernia. 22 chronic right-sided pleural effusion Plan Patient is stable for now. The patient will be transferred to telemetry/cardiac unit for further monitoring. The latter reported his blood pressure is stabilized. His sodium level is also stable. No cardiac arrhythmias noted. The patient is currently on a combination of aspirin and and Eliquis. He is also on metoprolol 25 mg by mouth twice a day. He is on Zestril 10 mg by mouth daily and Imdur 60 mg by mouth daily. He is on Bumex 2 mg twice a day. Pleural effusion is related to his CHF and there are no plans to undergo any thoracentesis at this point in time. Rest of the blood work from today were noted. No significant abnormalities. The patient had a follow-up chest x-ray from today that showed a stable CHF with a stable right-sided pleural effusion without any interval change compared to yesterday's chest x-ray. He'll be transferred out to telemetry
[2019-04-03 13:06] VITALS: BP 102/61; RESP 20; TEMP 98
--- NOTE | 2019-04-03 13:18 | PN ---
PROGRESS NOTE The patient is feeling much better today. Chest pain is gone. Denies any shortness of breath. He is eager to go home. All his medications have been resumed. EXAM: He is comfortable at rest. Vital signs are stable. There is no jugular venous distention. Chest exam reveals good air entry bilaterally. Heart exam reveals first and second heart sounds. No gallop. Exam of extremities did not reveal any edema. Peripheral pulses are felt. ASSESSMENT: 1. Ischemic cardiomyopathy. 2. Ventricular tachycardia. 3. Chronic systolic heart failure. PLAN: Patient is doing much better. Stable for discharge and outpatient follow up through his visual display associate. MMODL / IJN: [id number] /
== END 2019-04-03 15:33 | disposition home health service (06) | DRG 291 ==
LOC: EC 11:19 → 3SCARD 17:31 → 2SICU 04-01 23:30 → 3SCARD 04-03 12:18
PROVIDERS: ADMIT Hospitalist; ATTEND Hospitalist
DX: I11.0 Hypertensive heart disease with heart failure (principal); R57.0 Cardiogenic shock; Z68.41 Body mass index [BMI] 40.0-44.9, adult; R45.851 Suicidal ideations; R18.8 Other ascites; I48.19 Other persistent atrial fibrillation; E87.1 Hypo-osmolality and hyponatremia; F33.1 Major depressive disorder, recurrent, moderate; I47.2 Ventricular tachycardia; I50.23 Acute on chronic systolic (congestive) heart failure; Z66 Do not resuscitate; Z51.5 Encounter for palliative care; I95.89 Other hypotension; E11.42 Type 2 diabetes mellitus with diabetic polyneuropathy; E11.43 Type 2 diabetes mellitus with diabetic autonomic (poly)neuropathy; I27.20 Pulmonary hypertension, unspecified; K31.84 Gastroparesis; E87.5 Hyperkalemia; I07.1 Rheumatic tricuspid insufficiency; I25.5 Ischemic cardiomyopathy; E66.9 Obesity, unspecified; I25.110 Atherosclerotic heart disease of native coronary artery with unstable angina pectoris; D64.9 Anemia, unspecified; J45.909 Unspecified asthma, uncomplicated; E78.5 Hyperlipidemia, unspecified; K21.9 Gastro-esophageal reflux disease without esophagitis; M19.90 Unspecified osteoarthritis, unspecified site; G47.33 Obstructive sleep apnea (adult) (pediatric); G89.29 Other chronic pain; I25.2 Old myocardial infarction; M54.9 Dorsalgia, unspecified; F43.10 Post-traumatic stress disorder, unspecified; F41.9 Anxiety disorder, unspecified; G47.00 Insomnia, unspecified; G43.909 Migraine, unspecified, not intractable, without status migrainosus; K44.9 Diaphragmatic hernia without obstruction or gangrene; L40.9 Psoriasis, unspecified; F10.11 Alcohol abuse, in remission; Z79.01 Long term (current) use of anticoagulants; Z79.82 Long term (current) use of aspirin; Z79.02 Long term (current) use of antithrombotics/antiplatelets; Z79.4 Long term (current) use of insulin; Z79.899 Other long term (current) drug therapy; Z86.74 Personal history of sudden cardiac arrest; Z91.19 Patient's noncompliance with other medical treatment and regimen; Z86.711 Personal history of pulmonary embolism; Z86.73 Personal history of transient ischemic attack (TIA), and cerebral infarction without residual deficits; Z91.5 Personal history of self-harm; Z86.718 Personal history of other venous thrombosis and embolism; Z87.440 Personal history of urinary (tract) infections; Z87.11 Personal history of peptic ulcer disease; Z95.810 Presence of automatic (implantable) cardiac defibrillator; Z90.49 Acquired absence of other specified parts of digestive tract; Z95.5 Presence of coronary angioplasty implant and graft; Z98.890 Other specified postprocedural states; Z86.14 Personal history of Methicillin resistant Staphylococcus aureus infection; Z87.01 Personal history of pneumonia (recurrent); Z90.79 Acquired absence of other genital organ(s); Z88.6 Allergy status to analgesic agent; Z88.1 Allergy status to other antibiotic agents; Z91.041 Radiographic dye allergy status; Z88.5 Allergy status to narcotic agent; Z88.0 Allergy status to penicillin; Z91.013 Allergy to seafood; Z88.8 Allergy status to other drugs, medicaments and biological substances; Z91.048 Other nonmedicinal substance allergy status; Z82.49 Family history of ischemic heart disease and other diseases of the circulatory system; Z82.0 Family history of epilepsy and other diseases of the nervous system; Z83.3 Family history of diabetes mellitus; Z80.1 Family history of malignant neoplasm of trachea, bronchus and lung
CPT/HCPCS: 36415; 36600; 71045; 71046; 71275; 80048; 80053; 80061; 81001; 82805; 83036; 83605; 83735; 83880; 84484; 85025; 85379; 85610; 85730; 87040; 93005; 96374; 96375; 99285

== ENCOUNTER 2019-04-19 00:38 | Emergency (ER) | payer MEDICARE, OTHER ==
[2019-04-19] MEDS ORDERED: ONDANSETRON 4 MG/2 ML VIAL ONE (02:59)
[2019-04-19] MEDS ORDERED: MORPHINE SULFATE 4 MG/ML SYRINGE ONE ×2 (02:59)
[2019-04-19 07:12] LABS: INR 1.1 (<1.2); Partial Thromboplastin Time 23.7 sec (22.0-30.0); Prothrombin Time 11.5 sec (9.0-12.0)
[2019-04-19 07:20] LABS: Anisocytosis Slight; Basophils # (A) 0.1 k/uL (0-0.2); Basophils % (A) 1 %; Eosinophils # (A) 0.1 k/uL (0-0.7); Eosinophils % (A) 2 %; HCT 39.2 % (39.0-53.0); HGB 11.9 gm/dL (13.0-17.5); Hypochromasia Marked; Lymphocytes # (A) 0.9 k/uL (1.0-4.8); Lymphocytes % (A) 17 %; MCH 27.6 pg (25.0-35.0); MCHC 30.4 g/dL (31.0-37.0); MCV 90.7 fL (80.0-100.0); Mean Platelet Volume 6.3; Monocytes # (A) 0.4 k/uL (0-1.0); Monocytes % (A) 8 %; Neutrophils % (A) 70 %; Platelet Count 262 k/uL (150-450); RBC 4.33 m/uL (4.30-5.90); RDW 17.6 % (11.5-15.5); WBC 5.6 k/uL (3.8-10.6)
[2019-04-19 07:24] LABS: ALT 86 U/L (21-72); AST 84 U/L (17-59); African American GFR (CKD) >90 (>60 ml/min/1.73 sqM); Albumin 3.8 g/dL (3.5-5.0); Alkaline Phosphatase 480 U/L (38-126); Anion Gap 10 mmol/L; Blood Urea Nitrogen 62 mg/dL (9-20); Calcium 9.2 mg/dL (8.4-10.2); Carbon Dioxide 24 mmol/L (22-30); Chloride 97 mmol/L (98-107); Creatine Kinase 73 U/L (55-170); Glucose 139 mg/dL (74-99); Magnesium 2.1 mg/dL (1.6-2.3); Non-African American GFR(CKD) >90 (>60 ml/min/1.73 sqM); Potassium 5.1 mmol/L (3.5-5.1); Sodium 131 mmol/L (137-145); Total Bilirubin 0.9 mg/dL (0.2-1.3); Total Protein 6.4 g/dL (6.3-8.2)
--- NOTE | 2019-04-19 08:30 | XR ---
EXAM: XR Chest, 2 Views CLINICAL HISTORY: chest pain TECHNIQUE: Frontal and lateral views of the chest. COMPARISON: No relevant prior studies available. FINDINGS: Lungs: Patchy bilateral lower lung opacities. Pleural space: No significant pleural effusion or pneumothorax. Heart: Mildly enlarged cardiomediastinal silhouette. Mediastinum: See above. Bones/joints: No acute fracture. Tubes, lines and devices: Left chest cardiac conduction device. IMPRESSION: 1. Patchy bilateral lower lung opacities, possible atelectasis or developing infiltrate. 2. Mildly enlarged cardiomediastinal silhouette.
== END 2019-04-19 06:08 | disposition home or self-care (01) ==
LOC: EC 00:38
DX: R07.89 Other chest pain (principal); R06.02 Shortness of breath; I25.119 Atherosclerotic heart disease of native coronary artery with unspecified angina pectoris; I11.0 Hypertensive heart disease with heart failure; I50.9 Heart failure, unspecified; I25.2 Old myocardial infarction; Z88.1 Allergy status to other antibiotic agents; Z88.5 Allergy status to narcotic agent; Z88.6 Allergy status to analgesic agent; Z88.8 Allergy status to other drugs, medicaments and biological substances; Z91.013 Allergy to seafood; Z79.82 Long term (current) use of aspirin; Z79.899 Other long term (current) drug therapy; Z95.818 Presence of other cardiac implants and grafts
CPT/HCPCS: 36415; 83880; 80053; 82550; 83690; 83735; 84484; 85025; 85610; 85730; 71046; 99285; 96374; 96375; 96376; J2270; J2405

== ENCOUNTER 2019-04-20 20:39 | Observation (INO) | payer MEDICARE, OTHER ==
[2019-04-20] MEDS ORDERED: methylPREDNISolone SOD SUCCI 125 MG/2 ML VIAL IV STA (21:15)
[2019-04-20] MEDS ORDERED: FAMOTIDINE 20 MG/2 ML VIAL IV STA (21:15)
[2019-04-20] MEDS ORDERED: diphenhydrAMINE 50 MG/ML 1 ML VIAL IVP STA (21:15)
[2019-04-20] MEDS ORDERED: MORPHINE SULFATE 4 MG/ML SYRINGE IVP STA (21:46)
[2019-04-20] MEDS ORDERED: MORPHINE SULFATE 4 MG/ML SYRINGE IV STA (22:31)
--- NOTE | 2019-04-20 22:44 | XR ---
EXAMINATION TYPE: XR chest 2V DATE OF EXAM: 04/20/2019 COMPARISON: 04/19/2019 HISTORY: Chest pain TECHNIQUE: Frontal and lateral views of the chest are obtained. FINDINGS: Heart is enlarged. There is mild pulmonary congestion. There is a left axillary pacemaker. There is slight blunting right costophrenic angle. Bony thorax is intact. IMPRESSION: Moderate cardiomegaly. Small right pleural effusion is new compared to yesterday. There could be very minimal heart failure.
[2019-04-20 22:52] LABS: Anisocytosis Slight; Basophils # (A) 0.1 k/uL (0-0.2); Basophils % (A) 1 %; Eosinophils # (A) 0.1 k/uL (0-0.7); Eosinophils % (A) 1 %; HCT 40.9 % (39.0-53.0); HGB 12.6 gm/dL (13.0-17.5); Hypochromasia Slight; Lymphocytes # (A) 1.1 k/uL (1.0-4.8); Lymphocytes % (A) 18 %; MCHC 30.9 g/dL (31.0-37.0); MCV 87.6 fL (80.0-100.0); Mean Platelet Volume 6.6; Monocytes # (A) 0.4 k/uL (0-1.0); Monocytes % (A) 7 %; Neutrophils # (A) 4.4 k/uL (1.3-7.7); Neutrophils % (A) 71 %; Platelet Count 329 k/uL (150-450); RBC 4.67 m/uL (4.30-5.90); RDW 17.7 % (11.5-15.5); WBC 6.2 k/uL (3.8-10.6)
[2019-04-20 22:56] LABS: INR 1.1 (<1.2); Partial Thromboplastin Time 23.6 sec (22.0-30.0); Prothrombin Time 11.1 sec (9.0-12.0)
--- NOTE | 2019-04-20 23:04 | ED ---
SOB HPI - General Chief Complaint: Shortness of Breath Stated Complaint: Allergic reaction, chest pain Time Seen by Provider: 04/20/19 20:40 Source: patient Mode of arrival: ambulatory Limitations: no limitations - History of Present Illness Initial Comments: The patient is a 43-year-old male with past history of coronary artery disease, CHF hypertension and hyperlipidemia who presents to the emergency department with possible ALLERGIC reaction. He states that he is currently on palliative care and plans to transitioned to hospice care. Palliative care was at his house today. He has chronic pain and placed him on [place]. He states he has had ALLERGIC reaction to this medication in the past but agreed to take it since this is only thing he was given for pain. He states he took one 7.5325 mg [place] and had sudden onset of body itching. Denies that his throat was closing off. Also admits to palpitations and shortness of breath. He has several other medication ALLERGIES. He did not take any medications at home but presented probably to the emergency room. He denies any fevers or chills. No nausea or vomiting. Denies any abdominal pain. There are no other alleviating, precipitating or modifying factors - Related Data Home Medications Medication Instructions Recorded Confirmed Pantoprazole [Protonix] 40 mg PO DAILY 04/01/18 04/22/19 Nitroglycerin Sl Tabs [Nitrostat] 0.4 mg SUBLINGUAL Q5M PRN 11/08/18 04/22/19 Tamsulosin HCl [Flomax] 0.4 mg PO DAILY 11/08/18 04/22/19 Apixaban [Eliquis] 5 mg PO BID 02/27/19 04/22/19 Clopidogrel [Plavix] 75 mg PO DAILY 02/27/19 04/22/19 Albuterol Sulfate [Ventolin HFA] 2 puff INHALATION RT-Q6H PRN 03/08/19 04/22/19 Bumetanide [BUMEX] 2 mg PO BID 03/08/19 04/22/19 DULoxetine HCL [Cymbalta] 60 mg PO BID 03/08/19 04/22/19 Gabapentin [Neurontin] 100 mg PO TID 03/08/19 04/22/19 Insulin Glargine [Lantus] 30 units SQ HS 03/08/19 04/22/19 Primidone [Mysoline] 100 mg PO BID 03/08/19 04/22/19 Rosuvastatin [Crestor] 10 mg PO DAILY 03/08/19 04/22/19 INSULIN ASPART (NovoLOG) [NovoLOG See Protocol SQ AC-TID 03/25/19 04/22/19 (formulary)] Previous Rx's Medication Instructions Recorded Metoprolol Tartrate [Lopressor] 25 mg PO BID 30 Days #60 tab 03/16/19 Sodium Bicarbonate Tab 650 mg PO DAILY 30 Days #30 tab 03/16/19 Aspirin 81 mg PO DAILY 30 Days #30 chew 03/23/19 Isosorbide Mononitrate ER [Imdur] 60 mg PO DAILY #30 tab.er.24h 03/27/19 ARIPiprazole [Abilify] 5 mg PO DAILY #30 tab 04/03/19 Lisinopril [Zestril] 10 mg PO DAILY #30 tab 04/03/19 Magnesium Oxide [Mag-Ox] 400 mg PO DAILY #7 tablet 04/03/19 traZODone HCL [Desyrel] 25 mg PO HS PRN #30 tab 04/03/19 Allergies Allergy/AdvReac Type Severity Reaction Status Date / Time erythromycin base Allergy Severe Rash/Hives Verified 04/22/19 22:47 [Erythromycin Base] cephalexin monohydrate Allergy Unknown Rash/Hives Verified 04/22/19 22:47 [From Keflex] codeine Allergy Unknown Unknown Verified 04/22/19 22:47 meclizine Allergy Unknown Unknown Verified 04/22/19 22:47 Penicillins Allergy Unknown Rash/Hives Verified 04/22/19 22:47 shellfish derived Allergy Unknown Anaphylaxis Verified 04/22/19 22:47 adhesive tape Allergy Rash/Hives Verified 04/22/19 22:47 Fish Containing Products Allergy Anaphylaxis Verified 04/22/19 22:47 [Fish] Iodinated Contrast Media Allergy Anaphylaxis Verified 04/22/19 22:47 silver Allergy Rash/Hives Verified 04/22/19 22:47 [From Tegaderm AG Mesh] naproxen AdvReac Unknown Compromises Verified 04/22/19 22:47 Kidney Function acetaminophen [From [place]] AdvReac Rapid Verified 04/22/19 22:47 Heart Rate atorvastatin calcium AdvReac Myalgia Verified 04/22/19 22:47 [From Lipitor] hydrocodone [From [place]] AdvReac Rapid Verified 04/22/19 22:47 Heart Rate Review of Systems ROS Statement: Those systems with pertinent positive or pertinent negative responses have been documented in the HPI. ROS Other: All systems not noted in ROS Statement are negative. Past Medical History Past Medical History: Asthma, Coronary Artery Disease (CAD), Chest Pain / Angina, Heart Failure, CVA/TIA, Diabetes Mellitus, Deep Vein Thrombosis (DVT), GERD/Reflux, Hyperlipidemia, Hypertension, Myocardial Infarction (GA), Osteoarthritis (OA), Pneumonia, Skin Disorder, Sleep Apnea/CPAP/BIPAP Additional Past Medical History / Comment(s): Pt recently admitted to [facility] on 03/21/19 with chest pain possible unstable angina possible NSTEMI, history of chronic hyponatremia,, Other hx: multiple vessel CAD, ischemic cardiomyopathy, IDDM type II, diabetic neuropathy bilateral hands and feet, hypertensive cardiovascular disease, past cardiac arrest, SHELIA with no device, bronchitis, PE L lung, DVT L leg, chronic gastritis, degenerative disc disease, chronic back pain, depression with hx of suicide attempts with insulin, gastroparesis, psoriasis, UTI, migraines, TIA, PUD, hiatal hernia, L rotator cuff tear, bronchitis, poor circulation, pseudoaneurysm L groin post procedure, CVA 05/15/18 with TPA administration and TIAs x2 Last Myocardial Infarction Date:: October 2017 History of Any Multi-Drug Resistant Organisms: MRSA Date of last positivie culture/infection: 11/05/17 (Culture done at 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 Date of Last Stent Placement:: 10/2018 Type of Cardiac Device: Biventricular Pacemaker, AICD Device Placement Date:: 4/27/16 Past Psychological History: Anxiety, Depression, PTSD Smoking Status: Never smoker Past Alcohol Use History: None Reported Past Drug Use History: None Reported - Past Family History Mother Family Medical History: Coronary Artery Disease (CAD), Myocardial Infarction (GA) Additional Family Medical History / Comment(s): 7 GA and faulty heart valve. Pt does not know the age when mother had her GA's. Father History Unknown: Yes Additional Family Medical History / Comment(s): Does not know who father is. Brother(s) Family Medical History: Cancer, Congestive Heart Failure (CHF), Myocardial Infarction (GA) Additional Family Medical History / Comment(s): Parkinsons. Pt does not know at what age his brother had an GA. Patient's other brother has lung CA Patient has Family Medical History: No Reported History Additional Family Medical History / Comment(s): There is a strong family history for heart disease, hypertension, and diabetes. General Exam Limitations: no limitations General appearance: alert, in no apparent distress Head exam: Present: atraumatic, normocephalic, normal inspection Eye exam: Present: normal appearance, PERRL, EOMI. Absent: scleral icterus, conjunctival injection, periorbital swelling ENT exam: Present: normal exam, mucous membranes moist Neck exam: Present: normal inspection. Absent: tenderness, meningismus, lymphadenopathy Respiratory exam: Present: decreased breath sounds, other (tachypnia). Absent: respiratory distress, wheezes, rales, rhonchi, stridor Cardiovascular Exam: Present: normal rhythm, tachycardia, normal heart sounds. Absent: systolic murmur, diastolic murmur, rubs, gallop, clicks GI/Abdominal exam: Present: soft, normal bowel sounds. Absent: distended, tenderness, guarding, rebound, rigid Extremities exam: Present: normal inspection, full ROM, normal capillary refill. Absent: tenderness, pedal edema, joint swelling, calf tenderness Back exam: Present: normal inspection Neurological exam: Present: alert, oriented X3, CN II-XII intact Psychiatric exam: Present: normal affect, normal mood Skin exam: Present: warm, dry, intact, normal color. Absent: rash Course Vital Signs 04/20/19 04/20/19 04/20/19 20:40 21:00 21:42 Temperature 98.0 F Pulse Rate 117 H 123 H 113 H Pulse Rate [ Right] Respiratory 28 H 21 22 Rate Blood Pressure 132/90 145/93 Blood Pressure [Right Arm] O2 Sat by Pulse 98 94 L 98 Oximetry 04/20/19 04/21/19 04/21/19 22:00 00:00 00:25 Temperature 98.0 F Pulse Rate 123 H Pulse Rate [ 121 H Right] Respiratory 16 16 Rate Blood Pressure 145/98 142/98 Blood Pressure 128/67 [Right Arm] O2 Sat by Pulse 97 97 Oximetry Medical Decision Making - Medical Decision Making Upon arrival the patient is placed into room 6. We do obtain IV access. He is given 50 mg of Benadryl, 125 mg of Solu-Medrol, 20 mg of Pepcid. He is requesting something for pain control and therefore is given 4 mg. We do observe the patient for approximately 2 hours. I do reassess the patient he states that he does feel improved. A did recommend discharge at this time however the patient is concerned over his elevated heart rate and blood pressure. He states that he still feels somewhat short of breath. Because of this I did recommend performing laboratory studies. CBC is unremarkable. CMP shows a CO2 of 21. BNP is elevated at 10,600. Troponin is elevated at 0.043. His troponin is at the patient's baseline. I discussed these results with the patient. He normally takes Bumex at home. He is a poor historian and is unsure if he took his medications. I do provide the patient with 2 mg of Bumex IV. He is requesting overnight observation. Admitted to Dr. Clay's group. Bridging orders were placed. Patient's remained in stable condition and was transported to the floor - Lab Data Result diagrams: 04/21/19 05:31 04/21/19 05:31 Lab Results 04/20/19 04/20/19 04/20/19 Range/Units 22:35 22:35 22:35 WBC 6.2 (3.8-10.6) k/uL RBC 4.67 (4.30-5.90) m/uL Hgb 12.6 L (13.0-17.5) gm/dL Hct 40.9 (39.0-53.0) % MCV 87.6 (80.0-100.0) fL MCH 27.0 (25.0-35.0) pg MCHC 30.9 L (31.0-37.0) g/dL RDW 17.7 H (11.5-15.5) % Plt Count 329 (150-450) k/uL Neutrophils % 71 % Lymphocytes % 18 % Monocytes % 7 % Eosinophils % 1 % Basophils % 1 % Neutrophils # 4.4 (1.3-7.7) k/uL Lymphocytes # 1.1 (1.0-4.8) k/uL Monocytes # 0.4 (0-1.0) k/uL Eosinophils # 0.1 (0-0.7) k/uL Basophils # 0.1 (0-0.2) k/uL Hypochromasia Slight Anisocytosis Slight PT (9.0-12.0) sec INR (<1.2) APTT (22.0-30.0) sec Sodium 134 L (137-145) mmol/L Potassium 4.9 (3.5-5.1) mmol/L Chloride 102 (98-107) mmol/L Carbon Dioxide 21 L (22-30) mmol/L Anion Gap 11 mmol/L BUN 33 H (9-20) mg/dL Creatinine 1.07 (0.66-1.25) mg/dL Est GFR (CKD-EPI)AfAm >90 (>60 ml/min/1.73 sqM) Est GFR (CKD-EPI)NonAf 85 (>60 ml/min/1.73 sqM) Glucose 136 H (74-99) mg/dL Calcium 9.7 (8.4-10.2) mg/dL Magnesium 2.1 (1.6-2.3) mg/dL Total Bilirubin 1.0 (0.2-1.3) mg/dL AST 40 (17-59) U/L ALT 69 (21-72) U/L Alkaline Phosphatase 423 H (38-126) U/L Troponin I (0.000-0.034) ng/mL NT-Pro-B Natriuret Pep 28215 pg/mL Total Protein 6.4 (6.3-8.2) g/dL Albumin 3.8 (3.5-5.0) g/dL 04/20/19 04/20/19 Range/Units 22:35 22:35 WBC (3.8-10.6) k/uL RBC (4.30-5.90) m/uL Hgb (13.0-17.5) gm/dL Hct (39.0-53.0) % MCV (80.0-100.0) fL MCH (25.0-35.0) pg MCHC (31.0-37.0) g/dL RDW (11.5-15.5) % Plt Count (150-450) k/uL Neutrophils % % Lymphocytes % % Monocytes % % Eosinophils % % Basophils % % Neutrophils # (1.3-7.7) k/uL Lymphocytes # (1.0-4.8) k/uL Monocytes # (0-1.0) k/uL Eosinophils # (0-0.7) k/uL Basophils # (0-0.2) k/uL Hypochromasia Anisocytosis PT 11.1 (9.0-12.0) sec INR 1.1 (<1.2) APTT 23.6 (22.0-30.0) sec Sodium (137-145) mmol/L Potassium (3.5-5.1) mmol/L Chloride (98-107) mmol/L Carbon Dioxide (22-30) mmol/L Anion Gap mmol/L BUN (9-20) mg/dL Creatinine (0.66-1.25) mg/dL Est GFR (CKD-EPI)AfAm (>60 ml/min/1.73 sqM) Est GFR (CKD-EPI)NonAf (>60 ml/min/1.73 sqM) Glucose (74-99) mg/dL Calcium (8.4-10.2) mg/dL Magnesium (1.6-2.3) mg/dL Total Bilirubin (0.2-1.3) mg/dL AST (17-59) U/L ALT (21-72) U/L Alkaline Phosphatase (38-126) U/L Troponin I 0.043 H* (0.000-0.034) ng/mL NT-Pro-B Natriuret Pep pg/mL Total Protein (6.3-8.2) g/dL Albumin (3.5-5.0) g/dL - EKG Data EKG Comments: EKG demonstrates a sinus tachycardia with a ventricular rate of 123. There are pacer spikes. CT interval 166. QRS 90. QTC of 429. There are ST elevations in leads 1, aVL. These are compared to previous and are the same Disposition Clinical Impression: Allergic reaction, Tachycardia, Chronic systolic (congestive) heart failure Disposition: ADMITTED IP TO THIS HOSP Condition: Stable Is patient prescribed a controlled substance at d/c from ED?: No Decision to Admit Reason: Admit from EC Decision Date: 04/20/19 Decision Time: 23:25
[2019-04-20 23:06] LABS: ALT 69 U/L (21-72); AST 40 U/L (17-59); African American GFR (CKD) >90 (>60 ml/min/1.73 sqM); Albumin 3.8 g/dL (3.5-5.0); Alkaline Phosphatase 423 U/L (38-126); Anion Gap 11 mmol/L; Blood Urea Nitrogen 33 mg/dL (9-20); Calcium 9.7 mg/dL (8.4-10.2); Carbon Dioxide 21 mmol/L (22-30); Chloride 102 mmol/L (98-107); Glucose 136 mg/dL (74-99); Magnesium 2.1 mg/dL (1.6-2.3); Non-African American GFR(CKD) 85 (>60 ml/min/1.73 sqM); Potassium 4.9 mmol/L (3.5-5.1); Sodium 134 mmol/L (137-145); Total Protein 6.4 g/dL (6.3-8.2)
[2019-04-20] MEDS ORDERED: NALOXONE 0.4 MG/ML 1 ML VIAL IV PRN (23:30)
[2019-04-21] MEDS ORDERED: BUMETANIDE 0.25 MG/ML 4 ML VIAL IVP STA (00:05)
[2019-04-21] MEDS ORDERED: ALBUTEROL NEBULIZED 2.5 MG/3 ML INHALATION PRN (00:07)
[2019-04-21] MEDS ORDERED: traZODone HCL 50 MG TAB PO PRN (00:07)
[2019-04-21] MEDS: MORPHINE SULFATE 4 MG/ML SYRINGE IVP PRN ×3 (01:06→08:57)
[2019-04-21] MEDS ORDERED: diphenhydrAMINE 50 MG/ML 1 ML VIAL IVP PRN (02:37)
[2019-04-21 05:52] LABS: Anisocytosis Slight; Basophils % (A) 0 %; Eosinophils % (A) 0 %; HGB 13.3 gm/dL (13.0-17.5); Hypochromasia Moderate; Lymphocytes # (A) 0.3 k/uL (1.0-4.8); Lymphocytes % (A) 6 %; MCH 27.1 pg (25.0-35.0); MCHC 30.2 g/dL (31.0-37.0); Mean Platelet Volume 6.7; Monocytes # (A) 0.1 k/uL (0-1.0); Monocytes % (A) 1 %; Neutrophils # (A) 5.3 k/uL (1.3-7.7); Neutrophils % (A) 92 %; Platelet Count 315 k/uL (150-450); RBC 4.89 m/uL (4.30-5.90); RDW 17.5 % (11.5-15.5); WBC 5.8 k/uL (3.8-10.6)
[2019-04-21 06:06] LABS: Calcium 9.7 mg/dL (8.4-10.2); Potassium 5.6 mmol/L (3.5-5.1)
[2019-04-21 06:39] LABS: Glucose,Whole Blood 241 mg/dL (75-99)
[2019-04-21 07:55] VITALS: RESP 16; TEMP 98.1
[2019-04-21] MEDS ORDERED: methylPREDNISolone SOD SUCCI 40 MG/ML 1 ML VIAL IV SCH (08:00)
[2019-04-21] MEDS ORDERED: PRIMIDONE 50 MG TAB PO SCH (09:00)
[2019-04-21] MEDS ORDERED: LISINOPRIL 10 MG TAB PO SCH (09:00)
[2019-04-21] MEDS ORDERED: PANTOPRAZOLE 40 MG TABLET PO SCH (09:00)
[2019-04-21] MEDS ORDERED: ATORVASTATIN 20 MG TAB PO SCH (09:00)
[2019-04-21] MEDS ORDERED: ARIPiprazole 5 MG TAB PO SCH (09:00)
[2019-04-21] MEDS ORDERED: DULoxetine HCL 60 MG CAPSULE.DR PO SCH (09:00)
[2019-04-21] MEDS ORDERED: FAMOTIDINE 20 MG/2 ML VIAL IV SCH (09:00)
[2019-04-21] MEDS ORDERED: GABAPENTIN 100 MG CAP PO SCH (09:00)
[2019-04-21] MEDS ORDERED: MAGNESIUM OXIDE 400 MG TAB PO SCH (09:00)
[2019-04-21] MEDS ORDERED: CLOPIDOGREL 75 MG TAB PO SCH (09:00)
[2019-04-21] MEDS ORDERED: ASPIRIN 81 MG PO SCH (09:00)
[2019-04-21] MEDS ORDERED: METOPROLOL TARTRATE 25 MG TAB PO SCH (09:00)
[2019-04-21] MEDS ORDERED: TAMSULOSIN 0.4 MG CAP.ER.24H PO SCH (09:00)
[2019-04-21] MEDS ORDERED: APIXABAN 5 MG TAB PO SCH (09:00)
[2019-04-21] MEDS ORDERED: SODIUM BICARBONATE TAB 650 MG TAB PO SCH (09:00)
[2019-04-21 09:56] VITALS: BP 118/80; PULSE 106
--- NOTE | 2019-04-21 11:14 | HP ---
HISTORY AND PHYSICAL This is a combined history and physical and discharge summary. Multiple medical problems was admitted with shortness of breath, chest pain, and possible allergic reaction, but the patient LEFT THE HOSPITAL AGAINST MEDICAL ADVICE before being seen. The prognosis guarded. Please refer to the ER notes and staff notes for further information. The patient is not willing to stay. FINAL DIAGNOSES: 1. Allergic reaction. 2. Tachycardia. 3. Chronic systolic congestive heart failure. Please note this is a combination history and physical examination and discharge summary. MMODL / IJN: [id number] /
[2019-04-21] MEDS ORDERED: FAMOTIDINE 20 MG TAB PO SCH (21:00)
== END 2019-04-21 10:50 | disposition home or self-care (01) ==
LOC: EC 20:39 → 1SOBS 23:32
PROVIDERS: ADMIT Hospitalist; ATTEND Hospitalist
DX: T78.40XA Allergy, unspecified, initial encounter (principal); Z53.29 Procedure and treatment not carried out because of patient's decision for other reasons; I25.10 Atherosclerotic heart disease of native coronary artery without angina pectoris; I11.0 Hypertensive heart disease with heart failure; I50.9 Heart failure, unspecified; Z83.3 Family history of diabetes mellitus; E78.5 Hyperlipidemia, unspecified; G89.29 Other chronic pain; R00.2 Palpitations; R06.02 Shortness of breath; R86.9 Unspecified abnormal finding in specimens from male genital organs; E11.9 Type 2 diabetes mellitus without complications; Z86.73 Personal history of transient ischemic attack (TIA), and cerebral infarction without residual deficits; Z86.718 Personal history of other venous thrombosis and embolism; K21.9 Gastro-esophageal reflux disease without esophagitis; I25.2 Old myocardial infarction; M19.90 Unspecified osteoarthritis, unspecified site; Z87.01 Personal history of pneumonia (recurrent); R00.0 Tachycardia, unspecified; Z95.0 Presence of cardiac pacemaker; G47.33 Obstructive sleep apnea (adult) (pediatric); E87.1 Hypo-osmolality and hyponatremia; I25.5 Ischemic cardiomyopathy; E11.42 Type 2 diabetes mellitus with diabetic polyneuropathy; Z86.711 Personal history of pulmonary embolism; K29.50 Unspecified chronic gastritis without bleeding; M54.9 Dorsalgia, unspecified; F32.9 Major depressive disorder, single episode, unspecified; L40.9 Psoriasis, unspecified; G43.909 Migraine, unspecified, not intractable, without status migrainosus; K27.9 Peptic ulcer, site unspecified, unspecified as acute or chronic, without hemorrhage or perforation; I72.8 Aneurysm of other specified arteries; Z86.14 Personal history of Methicillin resistant Staphylococcus aureus infection; Z90.49 Acquired absence of other specified parts of digestive tract; Z95.5 Presence of coronary angioplasty implant and graft; K44.9 Diaphragmatic hernia without obstruction or gangrene; F41.9 Anxiety disorder, unspecified; F43.10 Post-traumatic stress disorder, unspecified; Z82.49 Family history of ischemic heart disease and other diseases of the circulatory system; Z82.0 Family history of epilepsy and other diseases of the nervous system; Z80.1 Family history of malignant neoplasm of trachea, bronchus and lung; Z79.01 Long term (current) use of anticoagulants; Z79.02 Long term (current) use of antithrombotics/antiplatelets; Z79.82 Long term (current) use of aspirin; Z79.4 Long term (current) use of insulin; Z79.899 Other long term (current) drug therapy; Z88.1 Allergy status to other antibiotic agents; Z91.041 Radiographic dye allergy status; Z88.5 Allergy status to narcotic agent; Z88.0 Allergy status to penicillin; Z91.013 Allergy to seafood; Z88.8 Allergy status to other drugs, medicaments and biological substances; Z91.09 Other allergy status, other than to drugs and biological substances
CPT/HCPCS: 96376 ×2; 96374; 96375 ×2; 99285; 36415; 93005; 83880; 80053; 80048; 83735; 84484 ×2; 85025 ×2; 85610; 85730; 71046; G0378 ×2; J2270 ×2; J1200 ×2; J2920; J2930

== ENCOUNTER 2019-04-22 21:36 | Observation (INO) | payer MEDICARE, OTHER ==
[2019-04-22] MEDS ORDERED: SODIUM CHLORIDE 0.9% 500 ML 500 ML IV STA (21:46)
--- NOTE | 2019-04-22 22:19 | ED ---
General Adult HPI - General Chief complaint: Chest Pain Stated complaint: Chest Pain Time Seen by Provider: 04/22/19 21:43 Source: patient Mode of arrival: ambulatory Limitations: no limitations - History of Present Illness Initial comments: Dictation was produced using Edutor dictation software. please excuse any grammatical, word or spelling errors. Chief Complaint: 43-year-old male with extensive history of cardiac disease presents with chest pain and weakness. History of Present Illness: 43-year-old male patient has extensive history of cardiac disease. Patient is well-known to emergency department for multiple visitations. Patient has had multiple episodes cardiac arrest. He received care at [facility]. He has history of AICD. Vision has extensive cardiac damage. Patient has significant cardiomyopathy with chronic impaired systolic function with ejection fraction measured less than 20%. 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 Patient states that his symptoms have been significant for the last 4-6 hours. He was at home playing cards when he began to experience symptoms. Patient also feels significantly weak. Patient reports that he was DO NOT RESUSCITATE. However today he does not want to be DO NOT RESUSCITATE and wants to be full code and light of his family's recommendations. The ROS documented in this emergency department record has been reviewed and confirmed by me. Those systems with pertinent positive or negative responses have been documented in the HPI. All other systems are other negative and/or noncontributory. PHYSICAL EXAM: General Impression: Alert and oriented x3, not in acute distress, pale HEENT: Normocephalic atraumatic, extra-ocular movements intact, pupils equal and reactive to light bilaterally, mucous membranes moist. Cardiovascular: Tachycardic Chest: Lungs clear to auscultation bilaterally, no rhonchi, no wheeze, no rales Abdomen: Bowel sounds present, abdomen soft, non-tender, non-distended, no organomegaly Musculoskeletal: Pulses present and equal in all extremities, no peripheral edema Motor: no focal deficits noted Neurological: CN II-XII grossly intact, no focal motor or sensory deficits noted Skin: Intact with no visualized rashes Psych: Normal affect and mood ED course: 43-year-old male presents with chest pain. His extensive cardiac history. Vital signs upon arrival shows heart 127, rest of vital signs within acceptable limits. EKG interpretation: Ventricular rate 121, sinus tachycardia,. Interval 160, QS 80, QTc 434. No TX prolongation, no QTC prolongation, no ST or T-wave changes noted. EKG compared to 04/20/2019 showing no changes. Overall, this EKG is unremarkable Laboratory evaluation obtained. CBC unremarkable. Coag panel is negative. Metabolic panel shows findings within acceptable limits. Glucose 224. Patient's troponin 0.032 phthisis around patient's baseline. Given patient's degree of symptoms were patient admitted with consultation to cardiology and serial troponins. Patient given aspirin. - Related Data Home Medications Medication Instructions Recorded Confirmed Pantoprazole [Protonix] 40 mg PO DAILY 04/01/18 04/22/19 Nitroglycerin Sl Tabs [Nitrostat] 0.4 mg SUBLINGUAL Q5M PRN 11/08/18 04/22/19 Tamsulosin HCl [Flomax] 0.4 mg PO DAILY 11/08/18 04/22/19 Apixaban [Eliquis] 5 mg PO BID 02/27/19 04/22/19 Clopidogrel [Plavix] 75 mg PO DAILY 02/27/19 04/22/19 Albuterol Sulfate [Ventolin HFA] 2 puff INHALATION RT-Q6H PRN 03/08/19 04/22/19 Bumetanide [BUMEX] 2 mg PO BID 03/08/19 04/22/19 DULoxetine HCL [Cymbalta] 60 mg PO BID 03/08/19 04/22/19 Gabapentin [Neurontin] 100 mg PO TID 03/08/19 04/22/19 Insulin Glargine [Lantus] 30 units SQ HS 03/08/19 04/22/19 Primidone [Mysoline] 100 mg PO BID 03/08/19 04/22/19 Rosuvastatin [Crestor] 10 mg PO DAILY 03/08/19 04/22/19 INSULIN ASPART (NovoLOG) [NovoLOG See Protocol SQ AC-TID 03/25/19 04/22/19 (formulary)] Previous Rx's Medication Instructions Recorded Metoprolol Tartrate [Lopressor] 25 mg PO BID 30 Days #60 tab 03/16/19 Sodium Bicarbonate Tab 650 mg PO DAILY 30 Days #30 tab 03/16/19 Aspirin 81 mg PO DAILY 30 Days #30 chew 10/30/19 Isosorbide Mononitrate ER [Imdur] 60 mg PO DAILY #30 tab.er.24h 03/27/19 ARIPiprazole [Abilify] 5 mg PO DAILY #30 tab 04/03/19 Lisinopril [Zestril] 10 mg PO DAILY #30 tab 04/03/19 Magnesium Oxide [Mag-Ox] 400 mg PO DAILY #7 tablet 04/03/19 traZODone HCL [Desyrel] 25 mg PO HS PRN #30 tab 04/03/19 Allergies Allergy/AdvReac Type Severity Reaction Status Date / Time erythromycin base Allergy Severe Rash/Hives Verified 04/22/19 22:47 [Erythromycin Base] cephalexin monohydrate Allergy Unknown Rash/Hives Verified 04/22/19 22:47 [From Keflex] codeine Allergy Unknown Unknown Verified 04/22/19 22:47 meclizine Allergy Unknown Unknown Verified 04/22/19 22:47 Penicillins Allergy Unknown Rash/Hives Verified 04/22/19 22:47 shellfish derived Allergy Unknown Anaphylaxis Verified 04/22/19 22:47 adhesive tape Allergy Rash/Hives Verified 04/22/19 22:47 Fish Containing Products Allergy Anaphylaxis Verified 04/22/19 22:47 [Fish] Iodinated Contrast Media Allergy Anaphylaxis Verified 04/22/19 22:47 silver Allergy Rash/Hives Verified 04/22/19 22:47 [From Tegaderm AG Mesh] naproxen AdvReac Unknown Compromises Verified 04/22/19 22:47 Kidney Function acetaminophen [From [place]] AdvReac Rapid Verified 04/22/19 22:47 Heart Rate atorvastatin calcium AdvReac Myalgia Verified 04/22/19 22:47 [From Lipitor] hydrocodone [From [place]] AdvReac Rapid Verified 04/22/19 22:47 Heart Rate Review of Systems ROS Statement: Those systems with pertinent positive or pertinent negative responses have been documented in the HPI. ROS Other: All systems not noted in ROS Statement are negative. Past Medical History Past Medical History: Asthma, Coronary Artery Disease (CAD), Chest Pain / Angina, Heart Failure, CVA/TIA, Diabetes Mellitus, Deep Vein Thrombosis (DVT), GERD/Reflux, Hyperlipidemia, Hypertension, Myocardial Infarction (AL), Osteoarthritis (OA), Pneumonia, Skin Disorder, Sleep Apnea/CPAP/BIPAP Additional Past Medical History / Comment(s): Pt recently admitted to [facility] on 03/21/19 with chest pain possible unstable angina possible NSTEMI, history of chronic hyponatremia,, Other hx: multiple vessel CAD, ischemic cardiomyopathy, IDDM type II, diabetic neuropathy bilateral hands and feet, hypertensive cardiovascular disease, past cardiac arrest, SHELIA with no device, bronchitis, PE L lung, DVT L leg, chronic gastritis, degenerative disc disease, chronic back pain, depression with hx of suicide attempts with insulin, gastroparesis, psoriasis, UTI, migraines, TIA, PUD, hiatal hernia, L rotator cuff tear, bronchitis, poor circulation, pseudoaneurysm L groin post procedure, CVA 05/15/18 with TPA administration and TIAs x2 Last Myocardial Infarction Date:: October 2017 History of Any Multi-Drug Resistant Organisms: MRSA Date of last positivie culture/infection: 11/05/17 (Culture done at [facility]) MDRO Source:: legs Past Surgical History: AICD, Appendectomy, Cholecystectomy, Heart Catheterization With Stent, Hernia Repair Additional Past Surgical History / Comment(s): Pt has had multiple cardiac pr ocedures- caths/stents/PTCA, last stent placed at [facility] -October2017, SAVANNAH, R inguinal hernia repair, umbilical hernia repair, 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 Date of Last Stent Placement:: 10/2018 Type of Cardiac Device: Biventricular Pacemaker, AICD Device Placement Date:: 09/19/15 Past Psychological History: Anxiety, Depression, PTSD Smoking Status: Never smoker Past Alcohol Use History: None Reported Past Drug Use History: None Reported - Past Family History Mother Family Medical History: Coronary Artery Disease (CAD), Myocardial Infarction (AL) Additional Family Medical History / Comment(s): 7 AL and faulty heart valve. Pt does not know the age when mother had her AL's. Father History Unknown: Yes Additional Family Medical History / Comment(s): Does not know who father is. Brother(s) Family Medical History: Cancer, Congestive Heart Failure (CHF), Myocardial Infarction (AL) Additional Family Medical History / Comment(s): Parkinsons. Pt does not know at what age his brother had an AL. Patient's other brother has lung CA Patient has Family Medical History: No Reported History Additional Family Medical History / Comment(s): There is a strong family history for heart disease, hypertension, and diabetes. General Exam Limitations: no limitations Course Vital Signs 04/22/19 04/22/19 04/22/19 21:39 21:50 22:32 Temperature 97.1 F L Pulse Rate 127 H Pulse Rate [ 231 H Environmental Engineering Technician ] Respiratory 18 24 Rate Blood Pressure 137/82 O2 Sat by Pulse 98 Oximetry 04/22/19 22:36 Temperature Pulse Rate 128 H Pulse Rate [ Environmental Engineering Technician ] Respiratory 28 H Rate Blood Pressure 143/94 O2 Sat by Pulse 98 Oximetry Medical Decision Making - Lab Data Result diagrams: 04/22/19 22:29 04/22/19 22:29 Lab Results 04/22/19 04/22/19 04/22/19 Range/Units 22:29 22:29 22:29 WBC 7.4 (3.8-10.6) k/uL RBC 4.68 (4.30-5.90) m/uL Hgb 13.0 (13.0-17.5) gm/dL Hct 41.7 (39.0-53.0) % MCV 89.1 (80.0-100.0) fL MCH 27.9 (25.0-35.0) pg MCHC 31.3 (31.0-37.0) g/dL RDW 17.8 H (11.5-15.5) % Plt Count 291 (150-450) k/uL Neutrophils % 78 % Lymphocytes % 15 % Monocytes % 5 % Eosinophils % 1 % Basophils % 1 % Neutrophils # 5.8 (1.3-7.7) k/uL Lymphocytes # 1.1 (1.0-4.8) k/uL Monocytes # 0.4 (0-1.0) k/uL Eosinophils # 0.1 (0-0.7) k/uL Basophils # 0.0 (0-0.2) k/uL Hypochromasia Slight Anisocytosis Slight PT 12.2 H (9.0-12.0) sec INR 1.2 H (<1.2) APTT 22.2 (22.0-30.0) sec Sodium 132 L (137-145) mmol/L Potassium 4.3 (3.5-5.1) mmol/L Chloride 100 (98-107) mmol/L Carbon Dioxide 21 L (22-30) mmol/L Anion Gap 11 mmol/L BUN 49 H (9-20) mg/dL Creatinine 1.07 (0.66-1.25) mg/dL Est GFR (CKD-EPI)AfAm >90 (>60 ml/min/1.73 sqM) Est GFR (CKD-EPI)NonAf 85 (>60 ml/min/1.73 sqM) Glucose 324 H (74-99) mg/dL Calcium 8.9 (8.4-10.2) mg/dL Magnesium 2.0 (1.6-2.3) mg/dL Total Bilirubin 0.9 (0.2-1.3) mg/dL AST 25 (17-59) U/L ALT 46 (21-72) U/L Alkaline Phosphatase 341 H (38-126) U/L Troponin I (0.000-0.034) ng/mL Total Protein 6.1 L (6.3-8.2) g/dL Albumin 3.7 (3.5-5.0) g/dL 04/22/ Range/Units 22:29 WBC (3.8-10.6) k/uL RBC (4.30-5.90) m/uL Hgb (13.0-17.5) gm/dL Hct (39.0-53.0) % MCV (80.0-100.0) fL MCH (25.0-35.0) pg MCHC (31.0-37.0) g/dL RDW (11.5-15.5) % Plt Count (150-450) k/uL Neutrophils % % Lymphocytes % % Monocytes % % Eosinophils % % Basophils % % Neutrophils # (1.3-7.7) k/uL Lymphocytes # (1.0-4.8) k/uL Monocytes # (0-1.0) k/uL Eosinophils # (0-0.7) k/uL Basophils # (0-0.2) k/uL Hypochromasia Anisocytosis PT (9.0-12.0) sec INR (<1.2) APTT (22.0-30.0) sec Sodium (137-145) mmol/L Potassium (3.5-5.1) mmol/L Chloride (98-107) mmol/L Carbon Dioxide (22-30) mmol/L Anion Gap mmol/L BUN (9-20) mg/dL Creatinine (0.66-1.25) mg/dL Est GFR (CKD-EPI)AfAm (>60 ml/min/1.73 sqM) Est GFR (CKD-EPI)NonAf (>60 ml/min/1.73 sqM) Glucose (74-99) mg/dL Calcium (8.4-10.2) mg/dL Magnesium (1.6-2.3) mg/dL Total Bilirubin (0.2-1.3) mg/dL AST (17-59) U/L ALT (21-72) U/L Alkaline Phosphatase (38-126) U/L Troponin I 0.032 (0.000-0.034) ng/mL Total Protein (6.3-8.2) g/dL Albumin (3.5-5.0) g/dL Disposition Clinical Impression: Chest pain Disposition: ADMITTED IP TO THIS HOSP Condition: Fair Referrals: Junie New MD [Primary Care Provider] - 1-2 days Decision Time: 23:56
[2019-04-22] MEDS ORDERED: ASPIRIN 81 MG PO STA (22:33)
[2019-04-22 22:52] LABS: Anisocytosis Slight; Basophils % (A) 1 %; Eosinophils # (A) 0.1 k/uL (0-0.7); Eosinophils % (A) 1 %; HCT 41.7 % (39.0-53.0); Hypochromasia Slight; Lymphocytes # (A) 1.1 k/uL (1.0-4.8); Lymphocytes % (A) 15 %; MCH 27.9 pg (25.0-35.0); MCHC 31.3 g/dL (31.0-37.0); MCV 89.1 fL (80.0-100.0); Mean Platelet Volume 7.2; Monocytes # (A) 0.4 k/uL (0-1.0); Monocytes % (A) 5 %; Neutrophils # (A) 5.8 k/uL (1.3-7.7); Neutrophils % (A) 78 %; Platelet Count 291 k/uL (150-450); RBC 4.68 m/uL (4.30-5.90); RDW 17.8 % (11.5-15.5); WBC 7.4 k/uL (3.8-10.6)
--- NOTE | 2019-04-22 22:59 | XR ---
EXAMINATION TYPE: XR chest 1V portable DATE OF EXAM: 04/22/2019 COMPARISON: 04/20/2019 HISTORY: Chest pain TECHNIQUE: Single frontal view of the chest is obtained. FINDINGS: Heart is enlarged. There is some infiltrate right lower lobe. There is no gross heart fail ure. There is a left axillary pacemaker. There are chest leads. IMPRESSION: There is some right lower lobe pneumonia increased compared to last exam. No gross heart failure seen.
[2019-04-22 23:02] LABS: INR 1.2 (<1.2); Partial Thromboplastin Time 22.2 sec (22.0-30.0); Prothrombin Time 12.2 sec (9.0-12.0)
[2019-04-22 23:15] LABS: ALT 46 U/L (21-72); AST 25 U/L (17-59); African American GFR (CKD) >90 (>60 ml/min/1.73 sqM); Albumin 3.7 g/dL (3.5-5.0); Alkaline Phosphatase 341 U/L (38-126); Anion Gap 11 mmol/L; Blood Urea Nitrogen 49 mg/dL (9-20); Calcium 8.9 mg/dL (8.4-10.2); Carbon Dioxide 21 mmol/L (22-30); Chloride 100 mmol/L (98-107); Glucose 324 mg/dL (74-99); Non-African American GFR(CKD) 85 (>60 ml/min/1.73 sqM); Potassium 4.3 mmol/L (3.5-5.1); Sodium 132 mmol/L (137-145); Total Bilirubin 0.9 mg/dL (0.2-1.3); Total Protein 6.1 g/dL (6.3-8.2)
[2019-04-23] MEDS: NITROGLYCERIN SL TABS 0.4 MG TAB SUBLINGUAL PRN ×2 (00:42→00:48)
[2019-04-23 03:13] LABS: Glucose,Whole Blood 228 mg/dL (75-99)
[2019-04-23] MEDS ORDERED: traZODone HCL 50 MG TAB PO PRN (03:41)
[2019-04-23 04:31] VITALS: BP 133/93; PULSE 123; RESP 19; TEMP 97.2
[2019-04-23] MEDS ORDERED: INSULIN ASPART (NovoLOG) 100 UNIT/ML VIAL SQ SCH (07:30)
[2019-04-23] MEDS ORDERED: BUMETANIDE 1 MG TAB PO SCH (09:00)
[2019-04-23] MEDS ORDERED: ARIPiprazole 5 MG TAB PO SCH (09:00)
[2019-04-23] MEDS ORDERED: ISOSORBIDE MONONITRATE ER 60 MG TAB.ER.24H PO SCH (09:00)
[2019-04-23] MEDS ORDERED: ASPIRIN 325 MG TAB PO SCH (09:00)
[2019-04-23] MEDS ORDERED: CLOPIDOGREL 75 MG TAB PO SCH (09:00)
[2019-04-23] MEDS ORDERED: METOPROLOL TARTRATE 25 MG TAB PO SCH (09:00)
[2019-04-23] MEDS ORDERED: APIXABAN 5 MG TAB PO SCH (09:00)
[2019-04-23] MEDS ORDERED: LISINOPRIL 10 MG TAB PO SCH (09:00)
[2019-04-23] MEDS ORDERED: INSULIN DETEMIR (LEVEMIR) 100 UNIT/ML SYR SQ SCH (21:00)
== END 2019-04-23 04:20 | disposition left against medical advice (07) ==
LOC: EC 21:36 → 1SOBS 23:57
PROVIDERS: ADMIT Hospitalist; ATTEND Hospitalist
DX: R07.89 Other chest pain (principal); R53.1 Weakness; R00.0 Tachycardia, unspecified; J45.909 Unspecified asthma, uncomplicated; I25.119 Atherosclerotic heart disease of native coronary artery with unspecified angina pectoris; I50.9 Heart failure, unspecified; Z86.73 Personal history of transient ischemic attack (TIA), and cerebral infarction without residual deficits; Z86.718 Personal history of other venous thrombosis and embolism; K21.9 Gastro-esophageal reflux disease without esophagitis; E78.5 Hyperlipidemia, unspecified; I11.0 Hypertensive heart disease with heart failure; I25.2 Old myocardial infarction; M19.90 Unspecified osteoarthritis, unspecified site; I25.5 Ischemic cardiomyopathy; G47.33 Obstructive sleep apnea (adult) (pediatric); G89.29 Other chronic pain; M54.9 Dorsalgia, unspecified; F32.9 Major depressive disorder, single episode, unspecified; E11.40 Type 2 diabetes mellitus with diabetic neuropathy, unspecified; E11.43 Type 2 diabetes mellitus with diabetic autonomic (poly)neuropathy; K31.84 Gastroparesis; L40.9 Psoriasis, unspecified; F43.10 Post-traumatic stress disorder, unspecified; F41.9 Anxiety disorder, unspecified; Z79.899 Other long term (current) drug therapy; Z86.74 Personal history of sudden cardiac arrest; Z95.810 Presence of automatic (implantable) cardiac defibrillator; Z87.01 Personal history of pneumonia (recurrent); Z99.89 Dependence on other enabling machines and devices; Z87.19 Personal history of other diseases of the digestive system; Z79.01 Long term (current) use of anticoagulants; Z79.02 Long term (current) use of antithrombotics/antiplatelets; Z79.4 Long term (current) use of insulin; Z88.1 Allergy status to other antibiotic agents; Z91.041 Radiographic dye allergy status; Z88.5 Allergy status to narcotic agent; Z88.0 Allergy status to penicillin; Z91.013 Allergy to seafood; Z88.8 Allergy status to other drugs, medicaments and biological substances; Z91.048 Other nonmedicinal substance allergy status; Z91.5 Personal history of self-harm; Z87.440 Personal history of urinary (tract) infections; Z87.09 Personal history of other diseases of the respiratory system; Z86.14 Personal history of Methicillin resistant Staphylococcus aureus infection; Z90.49 Acquired absence of other specified parts of digestive tract; Z95.5 Presence of coronary angioplasty implant and graft; Z82.49 Family history of ischemic heart disease and other diseases of the circulatory system; Z82.0 Family history of epilepsy and other diseases of the nervous system; Z80.1 Family history of malignant neoplasm of trachea, bronchus and lung; Z83.3 Family history of diabetes mellitus; Z53.29 Procedure and treatment not carried out because of patient's decision for other reasons
CPT/HCPCS: 93005 ×2; 96360; 96361; 99285; 36415; 80053; 83735; 84484; 85025; 85610; 85730; 71045; G0378

== ENCOUNTER 2019-05-04 07:13 | Inpatient (IN) | payer MEDICAID, MEDICARE, OTHER ==
[2019-05-04] MEDS ORDERED: LORazepam 2 MG/ML INJ IV STA (07:28)
[2019-05-04] MEDS ORDERED: HYDROmorphone 1 MG/ML 1 ML SYRINGE IVP STA (07:28)
--- NOTE | 2019-05-04 08:07 | ED ---
Chest Pain HPI - General Chief Complaint: Chest Pain Stated Complaint: Chest Pain Time Seen by Provider: 05/04/19 07:15 Source: patient Mode of arrival: ambulatory Limitations: no limitations - History of Present Illness Initial Comments: The patient is a 43-year-old male well-known to the emergency department with past medical history of ischemic cardiomyopathy who presents to the emergency department with chest pain and anxiety. The patient is currently on home hospice care. We received a call from his hospice nurse Darya stating that overnight the patient was very uncomfortable. 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 She gave him 40 mg sublingual morphine, 3 mg of Ativan and Zofran within a 6 hour period. She was unable to get the patient comfortable. At this time she did direct him into the emergency room for further pain management. Upon evaluation of the patient he reports chest pain, shortness of breath, full body aches and nausea. He slept most of the day yesterday. Does report that he is eating with no vomiting. There are no other alleviating, precipitating or modifying factors - Related Data Home Medications Medication Instructions Recorded Confirmed Pantoprazole [Protonix] 40 mg PO DAILY 04/01/18 05/04/19 Nitroglycerin Sl Tabs [Nitrostat] 0.4 mg SUBLINGUAL Q5M PRN 11/08/18 05/04/19 Tamsulosin HCl [Flomax] 0.4 mg PO DAILY 11/08/18 05/04/19 Apixaban [Eliquis] 5 mg PO BID 02/27/19 05/04/19 Clopidogrel [Plavix] 75 mg PO DAILY 02/27/19 05/04/19 Albuterol Sulfate [Ventolin HFA] 2 puff INHALATION RT-Q6H PRN 03/08/19 05/04/19 Bumetanide [BUMEX] 2 mg PO BID 03/08/19 05/04/19 DULoxetine HCL [Cymbalta] 60 mg PO BID 03/08/19 05/04/19 Gabapentin [Neurontin] 100 mg PO TID 03/08/19 05/04/19 Insulin Glargine [Lantus] 30 units SQ HS 03/08/19 05/04/19 Primidone [Mysoline] 100 mg PO BID 03/08/19 05/04/19 Rosuvastatin [Crestor] 10 mg PO DAILY 03/08/19 05/04/19 INSULIN ASPART (NovoLOG) [NovoLOG See Protocol SQ AC-TID 03/25/19 05/04/19 (formulary)] Previous Rx's Medication Instructions Recorded Metoprolol Tartrate [Lopressor] 25 mg PO BID 30 Days #60 tab 03/16/19 Sodium Bicarbonate Tab 650 mg PO DAILY 30 Days #30 tab 03/16/19 Aspirin 81 mg PO DAILY 30 Days #30 chew 03/23/19 Isosorbide Mononitrate ER [Imdur] 60 mg PO DAILY #30 tab.er.24h 03/27/19 ARIPiprazole [Abilify] 5 mg PO DAILY #30 tab 04/03/19 Lisinopril [Zestril] 10 mg PO DAILY #30 tab 04/03/19 Magnesium Oxide [Mag-Ox] 400 mg PO DAILY #7 tablet 04/03/19 traZODone HCL [Desyrel] 25 mg PO HS PRN #30 tab 04/03/19 Allergies Allergy/AdvReac Type Severity Reaction Status Date / Time erythromycin base Allergy Severe Rash/Hives Verified 04/22/19 22:47 [Erythromycin Base] cephalexin monohydrate Allergy Unknown Rash/Hives Verified 04/22/19 22:47 [From Keflex] codeine Allergy Unknown Unknown Verified 04/22/19 22:47 meclizine Allergy Unknown Unknown Verified 04/22/19 22:47 Penicillins Allergy Unknown Rash/Hives Verified 04/22/19 22:47 shellfish derived Allergy Unknown Anaphylaxis Verified 04/22/19 22:47 adhesive tape Allergy Rash/Hives Verified 04/22/19 22:47 Fish Containing Products Allergy Anaphylaxis Verified 04/22/19 22:47 [Fish] Iodinated Contrast Media Allergy Anaphylaxis Verified 04/22/19 22:47 silver Allergy Rash/Hives Verified 04/22/19 22:47 [From Tegaderm AG Mesh] naproxen AdvReac Unknown Compromises Verified 04/22/19 22:47 Kidney Function acetaminophen [From [place]] AdvReac Rapid Verified 04/22/19 22:47 Heart Rate atorvastatin calcium AdvReac Myalgia Verified 04/22/19 22:47 [From Lipitor] hydrocodone [From [place]] AdvReac Rapid Verified 04/22/19 22:47 Heart Rate Review of Systems ROS Statement: Those systems with pertinent positive or pertinent negative responses have been documented in the HPI. ROS Other: All systems not noted in ROS Statement are negative. Past Medical History Past Medical History: Asthma, Coronary Artery Disease (CAD), Chest Pain / Angina, Heart Failure, CVA/TIA, Diabetes Mellitus, Deep Vein Thrombosis (DVT), GERD/Reflux, Hyperlipidemia, Hypertension, Myocardial Infarction (IA), Osteoarthritis (OA), Pneumonia, Skin Disorder, Sleep Apnea/CPAP/BIPAP Additional Past Medical History / Comment(s): Pt recently admitted to [facility] on 03/21/19 with chest pain possible unstable angina possible NSTEMI, history of chronic hyponatremia,, Other hx: multiple vessel CAD, ischemic cardiomyopathy, IDDM type II, diabetic neuropathy bilateral hands and feet, hypertensive cardiovascular disease, past cardiac arrest, SHELIA with no device, bronchitis, PE L lung, DVT L leg, chronic gastritis, degenerative disc disease, chronic back pain, depression with hx of suicide attempts with insulin, gastroparesis, psoriasis, UTI, migraines, TIA, PUD, hiatal hernia, L rotator cuff tear, bronchitis, poor circulation, pseudoaneurysm L groin post procedure, CVA 05/15/18 with TPA administration and TIAs x2 Last Myocardial Infarction Date:: October 2017 History of Any Multi-Drug Resistant Organisms: MRSA Date of last positivie culture/infection: 11/05/17 (Culture done at 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 Date of Last Stent Placement:: 10/2018 Type of Cardiac Device: Biventricular Pacemaker, AICD Device Placement Date:: 09/19/15 Past Psychological History: Anxiety, Depression, PTSD Smoking Status: Never smoker Past Alcohol Use History: None Reported Past Drug Use History: None Reported - Past Family History Mother Family Medical History: Coronary Artery Disease (CAD), Myocardial Infarction (IA) Additional Family Medical History / Comment(s): 7 IA and faulty heart valve. Pt does not know the age when mother had her IA's. Father History Unknown: Yes Additional Family Medical History / Comment(s): Does not know who father is. Brother(s) Family Medical History: Cancer, Congestive Heart Failure (CHF), Myocardial Infarction (IA) Additional Family Medical History / Comment(s): Parkinsons. Pt does not know at what age his brother had an IA. Patient's other brother has lung CA Patient has Family Medical History: No Reported History Additional Family Medical History / Comment(s): There is a strong family history for heart disease, hypertension, and diabetes. General Exam Limitations: no limitations General appearance: alert, anxious Head exam: Present: atraumatic, normocephalic, normal inspection Eye exam: Present: normal appearance, PERRL, EOMI. Absent: scleral icterus, conjunctival injection, periorbital swelling ENT exam: Present: normal exam, mucous membranes moist Neck exam: Present: normal inspection. Absent: tenderness, meningismus, lymphadenopathy Respiratory exam: Present: normal lung sounds bilaterally. Absent: respiratory distress, wheezes, rales, rhonchi, stridor Cardiovascular Exam: Present: regular rate, normal rhythm, normal heart sounds. Absent: systolic murmur, diastolic murmur, rubs, gallop, clicks GI/Abdominal exam: Present: soft, normal bowel sounds. Absent: distended, tenderness, guarding, rebound, rigid Extremities exam: Present: normal inspection, full ROM, normal capillary refill. Absent: tenderness, pedal edema, joint swelling, calf tenderness Back exam: Present: normal inspection Neurological exam: Present: alert, oriented X3, CN II-XII intact Psychiatric exam: Present: normal affect, anxious Skin exam: Present: warm, dry, intact, normal color. Absent: rash Course Vital Signs 05/04/19 05/04/19 07:19 08:30 Temperature 97.4 F L Pulse Rate 97 Respiratory 18 16 Rate Blood Pressure 125/89 O2 Sat by Pulse 99 Oximetry Chest Pain MDM - MDM upon arrival the patient was placed in room 6. I did call discuss the case with the patient's hospice nurse Darya. Her phone number is [phone]. She states that she does recommend inpatient hospice care for the patient as he is declining quickly and she cannot control his pain. We did obtain IV access and the patient was given 1 mg of Dilaudid and 1 mg of Ativan. I did call discuss the case with Dr. pablo who accepted admission for the patient in the hospitalist. I did place bridging orders. The hospice nurse does arrive to the emergency department and reports that she will take over care for the patient. Patient was transferred to the floor in stable condition Disposition Clinical Impression: Chest pain Disposition: ADMITTED IP TO THIS [facility] Condition: Poor Decision to Admit Reason: Admit from EC Decision Date: 05/04/19 Decision Time: 08:08
[2019-05-04] MEDS ORDERED: NALOXONE 0.4 MG/ML 1 ML VIAL IV PRN (08:08)
[2019-05-04] MEDS ORDERED: ONDANSETRON 4 MG/2 ML VIAL IVP PRN (08:55)
--- NOTE | 2019-05-04 12:14 | P.HPIM ---
History of Present Illness 43-year-old male was admitted for acute pain management patient is under hospice care. Patient has multiple medical problems including ischemic cardiomyopathy ejection fraction of 20% multiple hospitalizations here in the hospital has severe coronary artery disease. Patient is drowsy barely able to answer any of my questions yesterday complaining of pain. Unable to get much of history from the patient. Although patient just wanted to be comfortable no further treatment. Review of Systems Unable to obtain due to his clinical condition Past Medical History Past Medical History: Asthma, Coronary Artery Disease (CAD), Chest Pain / Angina, Heart Failure, CVA/TIA, Diabetes Mellitus, Deep Vein Thrombosis (DVT), GERD/Reflux, Hyperlipidemia, Hypertension, Myocardial Infarction (AR), Osteoarthritis (OA), Pneumonia, Skin Disorder, Sleep Apnea/CPAP/BIPAP Additional Past Medical History / Comment(s): Pt recently admitted to [facility] on 03/21/19 with chest pain possible unstable angina possible NSTEMI, history of chronic hyponatremia,, Other hx: multiple vessel CAD, ischemic cardiomyopathy, IDDM type II, diabetic neuropathy bilateral hands and feet, hypertensive cardiovascular disease, past cardiac arrest, SHELIA with no device, bronchitis, PE L lung, DVT L leg, chronic gastritis, degenerative disc disease, chronic back pain, depression with hx of suicide attempts with insulin, gastroparesis, psoriasis, UTI, migraines, TIA, PUD, hiatal hernia, L rotator cuff tear, bronchitis, poor circulation, pseudoaneurysm L groin post procedure, CVA 05/15/18 with TPA administration and TIAs x2 Last Myocardial Infarction Date:: October 2017 History of Any Multi-Drug Resistant Organisms: MRSA Date of last positivie culture/infection: 11/05/17 (Culture done at [facility]) MDRO Source:: legs Past Surgical History: AICD, Appendectomy, Cholecystectomy, Heart Catheterization With Stent, Hernia Repair Additional Past Surgical History / Comment(s): Pt has had multiple cardiac procedures- caths/stents/PTCA, last stent placed at [facility] -October2017, S[place]AN[place]H, R inguinal hernia repair, umbilical hernia repair, 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 Date of Last Stent Placement:: 10/2018 Type of Cardiac Device: Biventricular Pacemaker, AICD Device Placement Date:: 09/19/15 Past Psychological History: Anxiety, Depression, PTSD Smoking Status: Never smoker Past Alcohol Use History: None Reported Past Drug Use History: None Reported - Past Family History Mother Family Medical History: Coronary Artery Disease (CAD), Myocardial Infarction (AR) Additional Family Medical History / Comment(s): 7 AR and faulty heart valve. Pt does not know the age when mother had her AR's. Father History Unknown: Yes Additional Family Medical History / Comment(s): Does not know who father is. Brother(s) Family Medical History: Cancer, Congestive Heart Failure (CHF), Myocardial Infarction (AR) Additional Family Medical History / Comment(s): Parkinsons. Pt does not know at what age his brother had an AR. Patient's other brother has lung CA Patient has Family Medical History: No Reported History Additional Family Medical History / Comment(s): There is a strong family history for heart disease, hypertension, and diabetes. Medications and Allergies Home Medications Medication Instructions Recorded Confirmed Type Pantoprazole [Protonix] 40 mg PO DAILY 04/01/18 05/04/19 History Nitroglycerin Sl Tabs [Nitrostat] 0.4 mg SUBLINGUAL Q5M PRN 11/08/18 05/04/19 History Tamsulosin HCl [Flomax] 0.4 mg PO DAILY 11/08/18 05/04/19 History Apixaban [Eliquis] 5 mg PO BID 02/27/19 05/04/19 History Clopidogrel [Plavix] 75 mg PO DAILY 02/27/19 05/04/19 History Albuterol Sulfate [Ventolin HFA] 2 puff INHALATION RT-Q6H PRN 03/08/19 05/04/19 History Bumetanide [BUMEX] 2 mg PO BID 03/08/19 05/04/19 History DULoxetine HCL [Cymbalta] 60 mg PO BID 03/08/19 05/04/19 History Gabapentin [Neurontin] 100 mg PO TID 03/08/19 05/04/19 History Insulin Glargine [Lantus] 30 units SQ HS 03/08/19 05/04/19 History Primidone [Mysoline] 100 mg PO BID 03/08/19 05/04/19 History Rosuvastatin [Crestor] 10 mg PO DAILY 03/08/19 05/04/19 History Metoprolol Tartrate [Lopressor] 25 mg PO BID 30 Days #60 tab 03/16/19 05/04/19 Rx Sodium Bicarbonate Tab 650 mg PO DAILY 30 Days #30 tab 03/16/19 05/04/19 Rx Aspirin 81 mg PO DAILY 30 Days #30 chew 03/23/19 05/04/19 Rx INSULIN ASPART (NovoLOG) [NovoLOG See Protocol SQ AC-TID 03/25/19 05/04/19 History (formulary)] Isosorbide Mononitrate ER [Imdur] 60 mg PO DAILY #30 tab.er.24h 03/27/19 05/04/19 Rx ARIPiprazole [Abilify] 5 mg PO DAILY #30 tab 04/03/19 05/04/19 Rx Lisinopril [Zestril] 10 mg PO DAILY #30 tab 04/03/19 05/04/19 Rx Magnesium Oxide [Mag-Ox] 400 mg PO DAILY #7 tablet 04/03/19 05/04/19 Rx traZODone HCL [Desyrel] 25 mg PO HS PRN #30 tab 04/03/19 05/04/19 Rx Allergies Allergy/AdvReac Type Severity Reaction Status Date / Time erythromycin base Allergy Severe Rash/Hives Verified 04/22/19 22:47 [Erythromycin Base] cephalexin monohydrate Allergy Unknown Rash/Hives Verified 04/22/19 22:47 [From Keflex] codeine Allergy Unknown Unknown Verified 04/22/19 22:47 meclizine Allergy Unknown Unknown Verified 04/22/19 22:47 Penicillins Allergy Unknown Rash/Hives Verified 04/22/19 22:47 shellfish derived Allergy Unknown Anaphylaxis Verified 04/22/19 22:47 adhesive tape Allergy Rash/Hives Verified 04/22/19 22:47 Fish Containing Products Allergy Anaphylaxis Verified 04/22/19 22:47 [Fish] Iodinated Contrast Media Allergy Anaphylaxis Verified 04/22/19 22:47 silver Allergy Rash/Hives Verified 04/22/19 22:47 [From Tegaderm AG Mesh] naproxen AdvReac Unknown Compromises Verified 04/22/19 22:47 Kidney Function acetaminophen [From Candor] AdvReac Rapid Verified 04/22/19 22:47 Heart Rate atorvastatin calcium AdvReac Myalgia Verified 04/22/19 22:47 [From Lipitor] hydrocodone [From Candor] AdvReac Rapid Verified 04/22/19 22:47 Heart Rate Physical Exam Vitals: Vital Signs Temp Pulse Pulse Resp BP BP Pulse Ox 05/04/19 09:10 97.3 F L 97 18 113/80 97 05/04/19 08:30 16 05/04/19 07:19 97.4 F L 97 18 125/89 99 Intake and Output 05/03/19 05/04/19 05/04/19 22:59 06:59 14:59 Other: Weight 107.955 kg PHYSICAL EXAMINATION: GENERAL: Drowsy arousable but barely able to answer any questions, not in any acute distress. Obese HEENT: Pupils are round and equally reacting to light. EOMI. No scleral icterus. No conjunctival pallor. Normocephalic, atraumatic. No pharyngeal erythema. No thyromegaly. CARDIOVASCULAR: S1 and S2 present. No murmurs, rubs, or gallops. PULMONARY: Chest is clear to auscultation, no wheezing or crackles. ABDOMEN: Soft, nontender, nondistended, normoactive bowel sounds. No palpable organomegaly. MUSCULOSKELETAL: No joint swelling or deformity. EXTREMITIES: No cyanosis, clubbing, or pedal edema. NEUROLOGICAL: Unable to assess. SKIN: No rashes. Thrombosis Risk Factor Assmnt - Choose All That Apply Each Factor Represents 1 point: Abnormal pulmonary function (COPD), Age 41-60 years, Oral contraceptives or hormone replacement therapy, Swollen legs (current) Each Risk Factor Represents 3 Points: History of DVT/PE Thrombosis Risk Factor Assessment Total Risk Factor Score: 7 Thrombosis Risk Factor Assessment Level: High Risk Assessment and Plan Plan: Congestive heart failure severe ischemic myopathy of 20% -Coronary artery disease -Severity in the past - type 2 diabetes mellitus - DVT in the past -Gastroesophageal reflux disease -Hypertension -Sleep apnea - obesity Patient is presently on hospice care and is on IV Dilaudid for pain and comfort along with lorazepam Bumex and Cymbalta are being continued along with the Abilify
[2019-05-04] MEDS: BUMETANIDE 1 MG TAB PO SCH (15:20)
[2019-05-04] MEDS: HYDROmorphone 1 MG/ML 1 ML SYRINGE IVP PRN ×2 (19:50→21:45)
[2019-05-04] MEDS: traZODone HCL 50 MG TAB PO SCH (20:41)
[2019-05-04] MEDS: DULoxetine HCL 60 MG CAPSULE.DR PO SCH (20:41)
[2019-05-04] MEDS: NITROGLYCERIN SL TABS 0.4 MG TAB SUBLINGUAL PRN ×2 (21:21→21:37)
[2019-05-05] MEDS: HYDROmorphone 1 MG/ML 1 ML SYRINGE IVP PRN ×9 (01:18→22:48)
[2019-05-05] MEDS: DULoxetine HCL 60 MG CAPSULE.DR PO SCH ×2 (07:47→20:37)
[2019-05-05] MEDS: BUMETANIDE 1 MG TAB PO SCH ×2 (07:47→15:21)
[2019-05-05] MEDS: ARIPiprazole 5 MG TAB PO SCH (07:47)
[2019-05-05] MEDS ORDERED: SPIRONOLACTONE 25 MG TAB PO SCH (09:00)
--- NOTE | 2019-05-05 12:52 | P.PN ---
Subjective Progress Note Date: 05/05/19 Principal diagnosis: 43-year-old male was admitted for acute pain management patient is under hospice care. Patient has multiple medical problems including ischemic cardiomyopathy ejection fraction of 20% multiple hospitalizations here in the hospital has severe coronary artery disease. Patient is drowsy barely able to answer any of my questions yesterday complaining of pain. Unable to get much of history from the patient. Although patient just wanted to be comfortable no further treatment. 05/05/2019 Patient is sitting up in bed in no acute distress and was recently just washed up with nursing staff. When entering the room patient asked if I was the nurse and if I had pain medication available. Patient states that he started hospice a few days ago and his pain wasn't being managed with morphine at home and so he came to the hospital for better pain management control. Spoke to Radha with [facility] and they're currently working on possible placement at some form of [facility] facility to continue with his hospice there. Family is unable to care for him as he is requiring 24/7 care. Patient continues to state that he has 10 out of 10 chest pain and continues to request pain medication and follow in and out of sleep during conversation. Patient states that he is due for his Dilaudid again and asked me to let the nurse know. Review of Systems: Cardiovascular: Reports chest pain Respiratory: No reports of shortness of breath or cough GI: No reports of nausea, vomiting, or diarrhea : No reports of dysuria or retention Active Medications Aripiprazole (Abilify) 5 mg PO DAILY [facility] Last Admin: 05/05/19 07:47 Dose: 5 mg Documented by: Bumetanide (Bumex) 2 mg PO BID@0900,1600 [facility] Last Admin: 05/05/19 07:47 Dose: 2 mg Documented by: Duloxetine HCl (Cymbalta) 60 mg PO BID [facility] Last Admin: 05/05/19 07:47 Dose: 60 mg Documented by: Hydromorphone HCl (Dilaudid) 1 mg IVP Q2HR PRN PRN Reason: Severe Pain Last Admin: 05/05/19 12:05 Dose: 1 mg Documented by: Lorazepam (Ativan) 2 mg IV Q2HR PRN PRN Reason: Anxiety Naloxone HCl (Narcan) 0.2 mg IV Q2M PRN PRN Reason: Opioid Reversal Nitroglycerin (Nitrostat) 0.4 mg SUBLINGUAL Q5M PRN PRN Reason: Chest Pain Last Admin: 05/04/19 21:37 Dose: 0.4 mg Documented by: Ondansetron HCl (Zofran) 4 mg IVP Q6HR PRN PRN Reason: Nausea/emesis Last Admin: 05/05/19 06:22 Dose: 4 mg Documented by: Trazodone HCl (Desyrel) 50 mg PO HS JAKE Last Admin: 05/04/19 20:41 Dose: 50 mg Documented by: Objective - Vital Signs Vital signs: Vital Signs Temp 97.6 F 05/05/19 04:16 Pulse 104 H 05/05/19 04:16 Resp 18 05/05/19 08:00 BP 138/91 05/05/19 04:16 Pulse Ox 96 05/05/19 04:16 Intake & Output 05/04/19 05/05/19 05/05/19 18:59 06:59 18:59 Intake Total 240 Output Total 150 1125 200 Balance 90 -1125 -200 Weight 107.955 kg Intake: Oral 240 Output: Urine 150 1125 200 Other: Voiding Method Urinal Urinal # Voids 1 - Exam GENERAL: Awake but drowsy and alert and oriented 3 and not in any acute distress. Obese HEENT: Pupils are round and equally reacting to light. EOMI. No scleral icterus. No conjunctival pallor. Normocephalic, atraumatic. No pharyngeal erythema. No thyromegaly. CARDIOVASCULAR: S1 and S2 present. No murmurs, rubs, or gallops. PULMONARY: Chest is clear to auscultation, no wheezing or crackles. ABDOMEN: Soft, obese, nontender, nondistended, normoactive bowel sounds. No palpable organomegaly. MUSCULOSKELETAL: No joint swelling or deformity. EXTREMITIES: No cyanosis, clubbing, or pedal edema. NEUROLOGICAL: No focal deficits noted and able to move all 4 extremities SKIN: No rashes. Pale and ashen in appearance Assessment and Plan Assessment: -Congestive heart failure severe ischemic myopathy of 20% -Coronary artery disease -CVA in the past -type 2 diabetes mellitus -DVT in the past -Gastroesophageal reflux disease -Hypertension -Sleep apnea -obesity -History of depression Patient is presently on hospice care and is on IV Dilaudid for pain and comfort along with lorazepam Bumex and Cymbalta are being continued along with the Abilify. [facility] is following and currently working on possible placement in extended-care facility for continued hospice care and pain management. Further recommendations to follow.
[2019-05-05] MEDS: traZODone HCL 50 MG TAB PO SCH (20:37)
[2019-05-05] MEDS: LORazepam 2 MG/ML INJ IV PRN (20:49)
[2019-05-06] MEDS: HYDROmorphone 1 MG/ML 1 ML SYRINGE IVP PRN ×4 (03:12→17:29)
[2019-05-06] MEDS: LORazepam 2 MG/ML INJ IV PRN ×2 (03:22→10:59)
[2019-05-06] MEDS: BUMETANIDE 1 MG TAB PO SCH ×2 (08:08→16:39)
[2019-05-06] MEDS: ARIPiprazole 5 MG TAB PO SCH (08:08)
[2019-05-06] MEDS: DULoxetine HCL 60 MG CAPSULE.DR PO SCH (08:08)
[2019-05-06 14:25] VITALS: BP 128/83; PULSE 89; RESP 16; TEMP 97.6
--- NOTE | 2019-05-06 15:02 | P.PN ---
<TerryWalter stewartssica - Last Filed: 05/06/19 14:57> Subjective Progress Note Date: 05/06/19 Principal diagnosis: 43-year-old male was admitted for acute pain management patient is under hospice care. Patient has multiple medical problems including ischemic cardiomyopathy ejection fraction of 20% multiple hospitalizations here in the hospital has severe coronary artery disease. Patient is drowsy barely able to answer any of my questions yesterday complaining of pain. Unable to get much of history from the patient. Although patient just wanted to be comfortable no further treatment. 05/05/2019 Patient is sitting up in bed in no acute distress and was recently just washed up with nursing staff. When entering the room patient asked if I was the nurse and if I had pain medication available. Patient states that he started hospice a few days ago and his pain wasn't being managed with morphine at home and so he came to the hospital for better pain management control. Spoke to Radha with [facility] and they're currently working on possible placement at some form of [facility] facility to continue with his hospice there. Family is unable to care for him as he is requiring 24/7 care. Patient continues to state that he has 10 out of 10 chest pain and continues to request pain medication and follow in and out of sleep during conversation. Patient states that he is due for his Dilaudid again and asked me to let the nurse know. Review of Systems: Cardiovascular: Reports chest pain Respiratory: No reports of shortness of breath or cough GI: No reports of nausea, vomiting, or diarrhea : No reports of dysuria or retention 05/06/2019 Patient is sitting up in bed sleeping but easily arousable. Patient is continued under hospice care. Case management assisting hospice nurses with attempts to find possible placement at an extended care facility to continue on his hospice wishes. Patient continues to ask for Dilaudid whenever someone enters the room. Patient continues to report 10 out of 10 chest pain but easily is lethargic and falls asleep during conversation. Will continue to monitor closely. Medicaid is pending at this time with possible acceptance at [facility]. Objective - Vital Signs Vital signs: Vital Signs Temp 97.6 F 05/06/19 12:30 Pulse 89 05/06/19 12:30 Resp 16 05/06/19 14:41 BP 128/83 05/06/19 12:30 Pulse Ox 91 L 05/06/19 12:30 Intake & Output 05/05/19 05/06/19 05/06/19 18:59 06:59 18:59 Intake Total 240 420 Output Total 200 1450 300 Balance 40 -1450 120 Intake: Oral 240 420 Output: Urine 200 1450 300 Other: Voiding Method Urinal Urinal Urinal # Voids 4 2 3 - Exam GENERAL: Awake but drowsy and alert and oriented 3 and not in any acute distress. Obese HEENT: Pupils are round and equally reacting to light. EOMI. No scleral icterus. No conjunctival pallor. Normocephalic, atraumatic. No pharyngeal erythema. No thyromegaly. CARDIOVASCULAR: S1 and S2 present. No murmurs, rubs, or gallops. PULMONARY: Chest is clear to auscultation, no wheezing or crackles. ABDOMEN: Soft, obese, nontender, nondistended, normoactive bowel sounds. No palpable organomegaly. MUSCULOSKELETAL: No joint swelling or deformity. EXTREMITIES: No cyanosis, clubbing, or pedal edema. NEUROLOGICAL: No focal deficits noted and able to move all 4 extremities SKIN: No rashes. Pale and ashen in appearance Assessment and Plan Assessment: -Congestive heart failure severe ischemic myopathy of 20% -Coronary artery disease -CVA in the past -type 2 diabetes mellitus -DVT in the past -Gastroesophageal reflux disease -Hypertension -Sleep apnea -obesity -History of depression Patient is presently on hospice care and is on IV Dilaudid for pain and comfort along with lorazepam Bumex and Cymbalta are being continued along with the Abilify. [facility] is following and currently working on possible placement in extended-care facility for continued hospice care and pain management. Case management is following closely and assisting hospice nurses with possible placement at hospice home or [facility]. Medicaid is pending. Further recommendations to follow. <Mali,Ricardo E - Last Filed: 05/07/19 00:13> Subjective Principal diagnosis: PLEASE CONSIDER THIS NOTE DISCHARGE SUMMARY I have discussed the plan and I have reviewed the note with [employer] Radha and I agree with it except what is mentioned below Pt is seen and examined by me at bed side pt is known to me from multiple admission to [facility], and he was at [facility] as well , with multiple medical problems including cardiomyopathy and others. pt looks comfortable, his pain is controlled with dilaudid, no other complaint , no dyspnea , no n/v. pt understands his hospice care need and why he is in hospice and wishes to continue with it . pt has multiple admission Objective - Vital Signs Vital signs: Vital Signs Temp 97.6 F 05/06/19 12:30 Pulse 89 05/06/19 12:30 Resp 16 05/06/19 14:41 BP 128/83 05/06/19 12:30 Pulse Ox 91 L 05/06/19 12:30 Intake & Output 05/06/19 05/06/19 05/07/19 06:59 18:59 06:59 Intake Total 420 Output Total 1450 300 Balance -1450 120 Intake: Oral 420 Output: Urine 1450 300 Other: Voiding Method Urinal Urinal # Voids 2 3
--- NOTE | 2019-05-07 00:14 | P.DS ---
Providers Date of admission: 05/04/19 08:52 Attending physician: Safia Clay Primary care physician: [facility] Course: please see the note from today with attestation Patient Condition at Discharge: Poor Plan - Discharge Summary Discharge Rx Participant: No New Discharge Prescriptions: No Action RX: Pantoprazole [Protonix] 40 mg PO DAILY RX: Nitroglycerin Sl Tabs [Nitrostat] 0.4 mg SUBLINGUAL Q5M PRN PRN Reason: Chest Pain RX: Tamsulosin HCl [Flomax] 0.4 mg PO DAILY RX: Clopidogrel [Plavix] 75 mg PO DAILY RX: Apixaban [Eliquis] 5 mg PO BID RX: Insulin Glargine [Lantus] 30 units SQ HS RX: Gabapentin [Neurontin] 100 mg PO TID RX: DULoxetine HCL [Cymbalta] 60 mg PO BID RX: Albuterol Sulfate [Ventolin HFA] 2 puff INHALATION RT-Q6H PRN PRN Reason: Wheezing RX: Bumetanide [BUMEX] 2 mg PO BID RX: Rosuvastatin [Crestor] 10 mg PO DAILY RX: Primidone [Mysoline] 100 mg PO BID RX: Metoprolol Tartrate [Lopressor] 25 mg PO BID 30 Days #60 tab RX: Sodium Bicarbonate Tab 650 mg PO DAILY 30 Days #30 tab RX: Aspirin 81 mg PO DAILY 30 Days #30 chew RX: INSULIN ASPART (NovoLOG) [NovoLOG (formulary)] See Protocol SQ AC-TID RX: Isosorbide Mononitrate ER [Imdur] 60 mg PO DAILY #30 tab.er.24h RX: ARIPiprazole [Abilify] 5 mg PO DAILY #30 tab RX: traZODone HCL [Desyrel] 25 mg PO HS PRN #30 tab PRN Reason: Insomnia RX: Magnesium Oxide [Mag-Ox] 400 mg PO DAILY #7 tablet RX: Lisinopril [Zestril] 10 mg PO DAILY #30 tab Discharge Medication List RX: Pantoprazole [Protonix] 40 mg PO DAILY 04/01/18 [History] RX: Nitroglycerin Sl Tabs [Nitrostat] 0.4 mg SUBLINGUAL Q5M PRN 11/08/18 [History] RX: Tamsulosin HCl [Flomax] 0.4 mg PO DAILY 11/08/18 [History] RX: Apixaban [Eliquis] 5 mg PO BID 02/27/19 [History] RX: Clopidogrel [Plavix] 75 mg PO DAILY 02/27/19 [History] RX: Albuterol Sulfate [Ventolin HFA] 2 puff INHALATION RT-Q6H PRN 03/08/19 [History] RX: Bumetanide [BUMEX] 2 mg PO BID 03/08/19 [History] RX: DULoxetine HCL [Cymbalta] 60 mg PO BID 03/08/19 [History] RX: Gabapentin [Neurontin] 100 mg PO TID 03/08/19 [History] RX: Insulin Glargine [Lantus] 30 units SQ HS 03/08/19 [History] RX: Primidone [Mysoline] 100 mg PO BID 03/08/19 [History] RX: Rosuvastatin [Crestor] 10 mg PO DAILY 03/08/19 [History] RX: Metoprolol Tartrate [Lopressor] 25 mg PO BID 30 Days #60 tab 03/16/19 [Rx] RX: Sodium Bicarbonate Tab 650 mg PO DAILY 30 Days #30 tab 03/16/19 [Rx] RX: Aspirin 81 mg PO DAILY 30 Days #30 chew 03/23/19 [Rx] RX: INSULIN ASPART (NovoLOG) [NovoLOG (formulary)] See Protocol SQ AC-TID 03/25/19 [History] RX: Isosorbide Mononitrate ER [Imdur] 60 mg PO DAILY #30 tab.er.24h 03/27/19 [Rx] RX: ARIPiprazole [Abilify] 5 mg PO DAILY #30 tab 04/03/19 [Rx] RX: Lisinopril [Zestril] 10 mg PO DAILY #30 tab 04/03/19 [Rx] RX: Magnesium Oxide [Mag-Ox] 400 mg PO DAILY #7 tablet 04/03/19 [Rx] RX: traZODone HCL [Desyrel] 25 mg PO HS PRN #30 tab 04/03/19 [Rx] Follow up Appointment(s)/Referral(s): Junie New MD [Primary Care Provider] - (as needed) Patient Instructions/Handouts: Hospice (DC) Activity/Diet/Wound Care/Special Instructions: Discharge to [facility] Home Regular diet Discharge Disposition: DISCH TO HOSPICE MED FACILTY
== END 2019-05-06 18:41 | disposition hospice, inpatient (51) | DRG 313 ==
LOC: EC 07:13 → 4MS4W 08:52
PROVIDERS: ADMIT Hospitalist; ATTEND Hospitalist
DX: R07.9 Chest pain, unspecified (principal); I25.10 Atherosclerotic heart disease of native coronary artery without angina pectoris; I11.0 Hypertensive heart disease with heart failure; I50.9 Heart failure, unspecified; E11.42 Type 2 diabetes mellitus with diabetic polyneuropathy; E11.43 Type 2 diabetes mellitus with diabetic autonomic (poly)neuropathy; K31.84 Gastroparesis; Z51.5 Encounter for palliative care; E66.9 Obesity, unspecified; E78.5 Hyperlipidemia, unspecified; F32.9 Major depressive disorder, single episode, unspecified; F43.10 Post-traumatic stress disorder, unspecified; I25.2 Old myocardial infarction; I25.5 Ischemic cardiomyopathy; F41.9 Anxiety disorder, unspecified; J45.909 Unspecified asthma, uncomplicated; K21.9 Gastro-esophageal reflux disease without esophagitis; M19.90 Unspecified osteoarthritis, unspecified site; G47.33 Obstructive sleep apnea (adult) (pediatric); K29.50 Unspecified chronic gastritis without bleeding; G89.29 Other chronic pain; M54.9 Dorsalgia, unspecified; L40.9 Psoriasis, unspecified; G43.909 Migraine, unspecified, not intractable, without status migrainosus; K44.9 Diaphragmatic hernia without obstruction or gangrene; Z79.01 Long term (current) use of anticoagulants; Z79.02 Long term (current) use of antithrombotics/antiplatelets; Z79.4 Long term (current) use of insulin; Z79.82 Long term (current) use of aspirin; Z79.899 Other long term (current) drug therapy; Z95.810 Presence of automatic (implantable) cardiac defibrillator; Z88.5 Allergy status to narcotic agent; Z88.0 Allergy status to penicillin; Z88.2 Allergy status to sulfonamides; Z88.8 Allergy status to other drugs, medicaments and biological substances; Z88.6 Allergy status to analgesic agent; Z88.1 Allergy status to other antibiotic agents; Z91.041 Radiographic dye allergy status; Z86.718 Personal history of other venous thrombosis and embolism; Z86.73 Personal history of transient ischemic attack (TIA), and cerebral infarction without residual deficits; Z86.711 Personal history of pulmonary embolism; Z91.5 Personal history of self-harm; Z90.49 Acquired absence of other specified parts of digestive tract; Z95.5 Presence of coronary angioplasty implant and graft; Z90.79 Acquired absence of other genital organ(s); Z68.38 Body mass index [BMI] 38.0-38.9, adult; Z87.440 Personal history of urinary (tract) infections; Z87.11 Personal history of peptic ulcer disease; Z86.14 Personal history of Methicillin resistant Staphylococcus aureus infection; Z87.01 Personal history of pneumonia (recurrent); Z86.74 Personal history of sudden cardiac arrest; Z82.0 Family history of epilepsy and other diseases of the nervous system; Z82.49 Family history of ischemic heart disease and other diseases of the circulatory system; Z83.3 Family history of diabetes mellitus; Z80.9 Family history of malignant neoplasm, unspecified
CPT/HCPCS: 93005; 96374; 96375; 99285